=== PATIENT | male | born 1965 | race Caucasian/White ===

== ENCOUNTER 2019-05-01 13:47 | Outpatient (RCR) | payer MEDICARE, MEDICAID, SELFPAY | END 2019-05-02 00:01 | LOC: WOUND 13:47 | PROVIDERS: Family Provider Nurse Practitioner Family; Visit Provider Nurse Practitioner Family | DX: I96 Gangrene, not elsewhere classified (principal); L97.822 Non-pressure chronic ulcer of other part of left lower leg with fat layer exposed; L98.9 Disorder of the skin and subcutaneous tissue, unspecified; L98.492 Non-pressure chronic ulcer of skin of other sites with fat layer exposed | CPT/HCPCS: 11042; 87070; 87077; 87176; 87186 ×4; 87205; G0463 ==

== ENCOUNTER 2019-05-03 07:30 | Emergency (ER) | payer MEDICARE, MEDICAID, SELFPAY ==
[2019-05-03 07:44] VITALS: BP 147/83; RESP 16; TEMP 36.8; O2SAT 94; BMI 40.6
--- NOTE | 2019-05-03 08:05 | W.ED.EXTPRO ---
HPI - Extremity Problem General: Chief complaint: Extremity Problem,Nontraumatic Stated complaint: Shoulder Pain Time Seen by Provider: 05/03/19 07:38 History of Present Illness: HPI Narrative: Patient is a 53-year-old male that comes in to the ED for right shoulder pain. He says he has right shoulder pain chronically but I got worse when he fell and landed on his right shoulder about 2 weeks ago. Patient currently takes hydrocodone for pain in his right leg. He took a hydrocodone to help with shoulder pain this morning. He denies any pain radiating down the arm and no numbness or tingling to extremities. MD Complaint: extremity pain Associated symptoms: Deny chest pain, fever(s) or short of breath Review of Systems Const: Denies: fever or chills ENMT: Denies: throat pain, nasal discharge or nasal congestion Card: Denies: chest pain, palpitations, edema, shortness of breath on exertion or shortness of breath when lying down Resp: Reports: non-productive cough; Denies: shortness of breath GI: Denies: abdominal pain, nausea, vomiting, diarrhea, constipation or blood in stool : Denies: difficulty urinating, painful urination or blood in urine Neuro: Reports: headache (mild); Denies: numbness in extremities or weakness in extremities PFSH ED PFSH: Statuses (acute, chronic, etc) shown below reflect problem list status as previously entered and may not be historically accurate Social History Smoking and tobacco status: never smoked Physical Exam Const: COMMON NORMALS: no apparent distress and oriented x3 ORIENTATION/CONSCIOUSNESS: Yes awake, Yes oriented to person, Yes oriented to place and Yes oriented to time HENMT: COMMON NORMALS: moist oral mucous membranes MOUTH: oral and palatal mucosa normal and lip normal THROAT: posterior oropharynx normal Eye: COMMON NORMALS: PERRL GENERAL EYE: normal appearance of both eyes PUPIL: Yes PERRL Neck/C-Spine: CERVICAL SPINE: No cervical spine tenderness Resp: COMMON NORMALS: normal respiratory effort, no retractions, no use of accessory muscles and clear to auscultation bilaterally EFFORT & INSPECTION: Yes able to speak in complete sentences AUSCULTATION: clear to auscultation bilaterally Cardio: COMMON NORMALS: regular rate, regular rhythm, S1 normal heart sound, S2 normal heart sound, no gallops, no clicks, no murmurs and peripheral pulses 2+ throughout (Radial pulses ) RATE: regular rate RHYTHM: regular rhythm HEART SOUNDS: S1 normal and S2 normal PERIPHERAL PULSES: pulses 2+ throughout (Radial pulses ) GI: COMMON NORMALS: normal to inspection, nondistended, normoactive bowel sounds and soft to palpation INSPECTION: Yes central obesity PALPATION: Yes soft : COMMON NORMALS: Yes no CVA tenderness BLADDER/KIDNEY EXAM: Yes no CVA tenderness Back/Pelvis: COMMON NORMALS: no CVA tenderness Extremity: GENERAL: Yes amputation (Left Leg) Neuro: COMMON NORMALS: oriented x3 SENSORIUM/ORIENTATION: Yes oriented to person, Yes oriented to place and Yes oriented to time Course Vital Signs: Vital signs: Vital Signs Temperature 98.3 F 05/03/19 07:44 Pulse Rate 82 05/03/19 09:49 Respiratory Rate 16 05/03/19 09:49 Blood Pressure 148/87 05/03/19 09:49 Pulse Oximetry 97 05/03/19 09:49 MDM - Extremity (Nontraumatic) Imaging Data^: Xray Ortho: Attestation: I personally reviewed and interpreted this imaging study as follows: My impression: No fractures seen on right shoulder xray. Radiologist's impression: Normal right shoulder xray. Discharge Plan Discharge Patient Disposition: Home, Self-Care Clinical Impression: Sprain and strain of other specified sites of shoulder and upper arm Condition: Stable Referrals: Amanda Odell NP [Primary Care Provider] - Discharge Diet: Regular Discharge Activity: Increase activity as tolerated Patient Instructions: Osteoarthritis (ED) Activity Restrictions/Additional Instructions: Follow-up with your primary care doctor in 7 days for reevaluation. Increase activity with her right shoulder as tolerated. Ice and/or apply heat for shoulder pain relief. Take Aleve or ibuprofen as needed for right shoulder pain. Discharge Date/Time: 05/03/19 09:50 Coding Level of Care Code ED Technical System Analyst for Jeronimo Fwd Exam Problem Focused
--- NOTE | 2019-05-03 08:15 | XR_ITS ---
WS: [id number] SHOULDER RIGHT TECHNIQUE: 3 views of the right shoulder CLINICAL INFORMATION: Fall and Right shoulder pain COMPARISON: None. FINDINGS: Normal acromioclavicular joint. Normal glenohumeral joint. Acromion is normal in appearance. Normal g lenoid. Chronic right rib fractures XR/XR shoulder RT min 2V* [id number] IMPRESSION: Normal right shoulder.
[2019-05-03 08:17] VITALS: PULSE 80
[2019-05-03 09:49] VITALS: BP 148/87; PULSE 82; RESP 16; O2SAT 97
== END 2019-05-03 09:50 | disposition home or self-care (01) ==
PROVIDERS: Emergency Provider Family Medicine; Family Provider Nurse Practitioner Family; PCP Nurse Practitioner Family
DX: S43.401A Unspecified sprain of right shoulder joint, initial encounter (principal); S46.911A Strain of unspecified muscle, fascia and tendon at shoulder and upper arm level, right arm, initial encounter; W19.XXXA Unspecified fall, initial encounter; Z79.891 Long term (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 of opiate analgesic
CPT/HCPCS: 73030; 99281

== ENCOUNTER → 2019-05-17 09:24 | Outpatient (BNVA) | payer MEDICARE, MEDICAID, SELFPAY | PROVIDERS: Family Provider Nurse Practitioner Family; PCP Nurse Practitioner Family; Visit Provider Anesthesiology | DX: M54.9 Dorsalgia, unspecified (principal); M25.561 Pain in right knee; R22.1 Localized swelling, mass and lump, neck; R79.89 Other specified abnormal findings of blood chemistry; M25.519 Pain in unspecified shoulder; F17.210 Nicotine dependence, cigarettes, uncomplicated; Z89.612 Acquired absence of left leg above knee; Z79.891 Long term (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 of opiate analgesic | CPT/HCPCS: 99214 ==

== ENCOUNTER 2019-05-22 07:47 | Outpatient (CLI) | payer MEDICARE, MEDICAID, SELFPAY ==
--- NOTE | 2019-05-22 07:59 | US_ITS ---
WS: [id number] INDICATION: Right neck and right arm swollen TECHNIQUE: Ultrasound soft tissue FINDINGS: Ultrasound soft tissue area of concern. No evidence of cystic or solid lesion. No subcutane ous mass or fluid in the area of concern. No pathologic abnormalities. US/US soft tissue head neck 12552 IMPRESSION: Normal exam
== END 2019-05-22 07:48 | disposition home or self-care (01) ==
LOC: RAD 07:52
PROVIDERS: Family Provider Nurse Practitioner Family; PCP Nurse Practitioner Family; Visit Provider Nurse Practitioner Family
DX: R22.1 Localized swelling, mass and lump, neck (principal)
CPT/HCPCS: 76536

== ENCOUNTER 2019-05-22 08:47 | Outpatient (RCR) | payer MEDICARE, MEDICAID, SELFPAY | END 2019-06-02 23:59 | disposition home or self-care (01) | LOC: WOUND 08:47 | PROVIDERS: Family Provider Nurse Practitioner Family; PCP Nurse Practitioner Family; Visit Provider Nurse Practitioner Family | DX: I96 Gangrene, not elsewhere classified (principal); L89.892 Pressure ulcer of other site, stage 2 | CPT/HCPCS: 99212; 99213; G0463 ==

== ENCOUNTER → 2019-05-29 14:57 | Outpatient (BNVA) | payer MEDICARE, MEDICAID, SELFPAY | PROVIDERS: Family Provider Nurse Practitioner Family; PCP Nurse Practitioner Family; Visit Provider Nurse Practitioner Family | DX: E11.9 Type 2 diabetes mellitus without complications (principal); R79.89 Other specified abnormal findings of blood chemistry; Z91.81 History of falling; M25.519 Pain in unspecified shoulder | CPT/HCPCS: 83036 ==

== ENCOUNTER 2019-06-29 09:30 | Outpatient (RCR) | payer MEDICARE, MEDICAID, SELFPAY | END 2019-07-01 23:59 | disposition home or self-care (01) | LOC: RADSHAW 09:30 | PROVIDERS: Family Provider Nurse Practitioner Family; PCP Nurse Practitioner Family; Visit Provider Nurse Practitioner Family | DX: E11.622 Type 2 diabetes mellitus with other skin ulcer (principal); L97.822 Non-pressure chronic ulcer of other part of left lower leg with fat layer exposed; E11.40 Type 2 diabetes mellitus with diabetic neuropathy, unspecified; N40.0 Benign prostatic hyperplasia without lower urinary tract symptoms; I10 Essential (primary) hypertension; E66.01 Morbid (severe) obesity due to excess calories; E78.5 Hyperlipidemia, unspecified; G47.33 Obstructive sleep apnea (adult) (pediatric); F17.220 Nicotine dependence, chewing tobacco, uncomplicated; M19.90 Unspecified osteoarthritis, unspecified site; Z51.89 Encounter for other specified aftercare; Z99.3 Dependence on wheelchair; Z89.612 Acquired absence of left leg above knee; Z88.1 Allergy status to other antibiotic agents; Z88.0 Allergy status to penicillin | CPT/HCPCS: 11042; G0463 ==

== ENCOUNTER 2019-07-10 08:14 | Outpatient (RCR) | payer MEDICARE, MEDICAID, SELFPAY | END 2019-08-01 23:59 | disposition home or self-care (01) | LOC: RADSHAW 08:14 | PROVIDERS: Family Provider Nurse Practitioner Family; PCP Nurse Practitioner Family; Visit Provider Nurse Practitioner Family | DX: E11.621 Type 2 diabetes mellitus with foot ulcer (principal); L97.822 Non-pressure chronic ulcer of other part of left lower leg with fat layer exposed; Z89.612 Acquired absence of left leg above knee | CPT/HCPCS: 99212; 99213; 99214; G0463 ==

== ENCOUNTER 2019-07-11 11:27 | Outpatient (CLI) | payer OTHER, MEDICAID, SELFPAY | END 2019-07-11 11:28 | disposition home or self-care (01) | LOC: SOT 11:27 | PROVIDERS: Family Provider Nurse Practitioner Family; PCP Nurse Practitioner Family; Referring Provider Nurse Practitioner Family; Visit Provider Nurse Practitioner Family | DX: S88.119D Complete traumatic amputation at level between knee and ankle, unspecified lower leg, subsequent encounter (principal); X58.XXXD Exposure to other specified factors, subsequent encounter | CPT/HCPCS: 97167; 97530; 99212; 99213 ==

== ENCOUNTER → 2019-07-14 10:22 | Outpatient (BNVA) | payer MEDICARE, MEDICAID, SELFPAY | PROVIDERS: Family Provider Nurse Practitioner Family; PCP Nurse Practitioner Family; Visit Provider Anesthesiology | DX: G89.29 Other chronic pain (principal); M54.9 Dorsalgia, unspecified; M25.511 Pain in right shoulder; M25.561 Pain in right knee; S78.119A Complete traumatic amputation at level between unspecified hip and knee, initial encounter; X58.XXXA Exposure to other specified factors, initial encounter; F17.220 Nicotine dependence, chewing tobacco, uncomplicated; Z89.612 Acquired absence of left leg above knee; Z79.891 Long term (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 of opiate analgesic | CPT/HCPCS: 99214 ==

== ENCOUNTER → 2019-08-30 09:00 | Outpatient (BNVA) | payer MEDICARE, MEDICAID, SELFPAY | PROVIDERS: Family Provider Nurse Practitioner Family; PCP Nurse Practitioner Family; Visit Provider Nurse Practitioner Family | DX: R79.89 Other specified abnormal findings of blood chemistry (principal); R25.2 Cramp and spasm; Z76.0 Encounter for issue of repeat prescription; M25.511 Pain in right shoulder; G89.29 Other chronic pain | CPT/HCPCS: 80053 ==

== ENCOUNTER 2019-10-12 20:00 | Outpatient (CLI) | payer MEDICARE, MEDICAID, SELFPAY | END 2019-10-12 20:01 | disposition home or self-care (01) | LOC: SLEEP 10-13 09:35 | PROVIDERS: Family Provider Nurse Practitioner Family; PCP Nurse Practitioner Family; Visit Provider Nurse Practitioner | DX: G47.33 Obstructive sleep apnea (adult) (pediatric) (principal) | CPT/HCPCS: 95811 ==

== ENCOUNTER 2019-11-01 13:20 | Outpatient (CLI) | payer MEDICARE, MEDICAID, SELFPAY ==
--- NOTE | 2019-11-01 13:35 | USCV_ITS ---
Marciano Alonso Age: 54 Gender: M : 1965 Exam Date: 11/01/2019 13:45 Ordering Phys: Bartolome Acharya Technologist: Maci Kamara Exam Location: [facility] – [place]_ Indication: edema HISTORY: Lower extremity edema. PROCEDURES: Venous duplex imaging was performed in only the right lower extremity. The following venous structures were evaluated: common femoral vein, profunda vein, proximal portion of the greater saphenous vein, superficial femoral vein, and the popliteal vein. In addition, the posterior tibial and peroneal trunk were evaluated. Serial compression, augmentation maneuvers, and spectral Doppler flow evaluation were performed. FINDINGS: Normal 2-D Doppler and augmentation and compressibility throughout the lower extremity venous structures. Additional imaging through the proximal calf veins also reveals no thrombus. Limited evaluation of the greater saphenous vein is patent with no thrombus.. CONCLUSIONS No evidence of right lower extremity DVT. Uvaldo Mejias MD (Electronically Signed) Final Date: 01 November 2019 14:52 S
== END 2019-11-01 13:21 | disposition home or self-care (01) ==
PROVIDERS: Family Provider Nurse Practitioner Family; PCP Nurse Practitioner Family; Visit Provider Nurse Practitioner
DX: M79.661 Pain in right lower leg (principal); R60.9 Edema, unspecified; I10 Essential (primary) hypertension
CPT/HCPCS: 93971

== ENCOUNTER → 2019-11-14 10:50 | Outpatient (BNVA) | payer MEDICARE, MEDICAID, SELFPAY | PROVIDERS: Family Provider Nurse Practitioner Family; PCP Nurse Practitioner; Visit Provider Anesthesiology | DX: G89.29 Other chronic pain (principal); M54.5 Low back pain; M25.511 Pain in right shoulder; M25.561 Pain in right knee; Z89.612 Acquired absence of left leg above knee; F17.220 Nicotine dependence, chewing tobacco, uncomplicated; Z79.891 Long term (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 of opiate analgesic | CPT/HCPCS: 99214 ==

== ENCOUNTER → 2020-01-16 12:47 | Outpatient (BNVA) | payer MEDICARE, MEDICAID, SELFPAY | PROVIDERS: Family Provider Nurse Practitioner Family; PCP Nurse Practitioner; Visit Provider Nurse Practitioner | DX: G89.29 Other chronic pain (principal); M54.42 Lumbago with sciatica, left side; M54.41 Lumbago with sciatica, right side; M54.9 Dorsalgia, unspecified; M25.511 Pain in right shoulder; M25.561 Pain in right knee; S78.119A Complete traumatic amputation at level between unspecified hip and knee, initial encounter; X58.XXXA Exposure to other specified factors, initial encounter; F17.220 Nicotine dependence, chewing tobacco, uncomplicated; Z89.612 Acquired absence of left leg above knee; Z79.891 Long term (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 of opiate analgesic | CPT/HCPCS: 99213; 99214 ==

== ENCOUNTER → 2020-01-24 09:11 | Outpatient (BNVA) | payer MEDICARE, MEDICAID, SELFPAY | PROVIDERS: Family Provider Nurse Practitioner Family; PCP Nurse Practitioner; Visit Provider Internal Medicine | DX: Z20.828 Contact with and (suspected) exposure to other viral communicable diseases (principal) | CPT/HCPCS: 87635 ==

== ENCOUNTER 2020-01-26 09:53 | Day surgery (SDC) | payer MEDICARE, MEDICAID, SELFPAY ==
[2020-01-24 12:59] VITALS: BMI 40.6
--- NOTE | 2020-01-26 09:04 | W.PM.OPSUD ---
Surgery/Procedure H&P Update DATE OF PROCEDURE: January 26, 2020 DATE H&P PERFORMED: 01/15/20 PLANNED PROCEDURE: Operation Date: 01/26/20 10:30 Proposed Procedures p EGD/colon 37440 [id number] R10.13 Z12.11(Not Applicable) - Willis Pardo MD s Colonoscopy(Not Applicable) - Willis Pardo MD
[2020-01-26 10:10] VITALS: BP 142/76; PULSE 76; RESP 18; TEMP 36.9; O2SAT 93
[2020-01-26] MEDS: sodium chloride 0.9% 1,000 ML 30 ML IV (10:26)
--- NOTE | 2020-01-26 10:27 | ANES.PREANE2 ---
Pre-Anesthetic Assessment Pre-Anesthetic Assessment: Height/Weight: Height 1.83 m Weight 136.078 kg Temp Pulse Resp BP Pulse Ox 98.4 F 76 18 142/76 93 01/26/20 10:10 01/26/20 10:10 01/26/20 10:10 01/26/20 10:10 01/26/20 10:10 Preop Diagnosis: Epigastric pain Proposed Procedure: Operation Date: 01/26/20 10:30 Proposed Procedures p EGD/colon 35455 02472 R10.13 Z12.11(Not Applicable) - Willis Pardo MD s Colonoscopy(Not Applicable) - Willis Pardo MD Familial anesthetic complications: None Was Beta Tonia taken within 24 hours: Yes Last intake: Intake Last Liquid Date 01/25/20 Last Liquid Time 20:00 Last Solid Date 01/24/20 Last Solid Time 20:00 Social: Social History: Tobacco Comment: chews tobacco Exam: Pre-Anes Outpt Exam: alert, oriented x 3, clear to auscultation bilaterally and regular rate & rhythm Airway: Cervical ROM: WNL MP: 4 Dentition: Other (no teeth) Additional comments: large neck circumference Pulmonary: Pulmonary: Sleep apnea (characterized as extremely severe - wears CPAP) CV/HEM: CV/HEM: HTN GI: GI: GERD Metabolic: Metabolic: DM, Hyperlipidemia and Morbid obesity Musc/skel: Comments: AKA Anesthetic Plan: ASA status: 3 Anesthesia: MAC Risk of > 500 ml blood loss (7ml/kg in children): No Meds/Allergies Current Medications: Current Medications Generic Name Dose Route Start Last Admin Trade Name Freq PRN Reason Stop Dose Admin Sodium Chloride 1,000 mls @ 30 ml s/hr 01/26/20 10:15 01/26/20 10:26 Sodium Chloride 0.9% IV 30 mls/hr .Q24H DOMITILA Administration PFSH Anesthesia PFSH: Medical History (Updated 01/16/20 @ 13:03 by VIVIANE Mcginnis) Amputation above knee Left BPH (benign prostatic hyperplasia) Chronic right shoulder pain Diabetes mellitus Diabetes type 2, controlled Dysuria-frequency syndrome Encounter for long-term use of opiate analgesic Essential hypertension History of left above knee amputation Primary osteoarthritis of both knees r knee Right knee pain Seizure Shoulder pain BILATERAL Sleep apnea Surgical History History of shoulder surgery 2002 x 2 L shoulder Family History Other Heart disease Hypertension Social History (Updated 01/16/20 @ 12:54 by Massiel Calhoun LPN) Smoking and tobacco status: smoker, details unknown smokeless tobacco Smokeless tobacco user: chewing tobacco Smokeless tobacco details: 2 cans a day Second hand smoke exposure: No Alcohol intake: never History of recent travel: No Data Anesthesia Cardiac Studies: No Data to Display
[2020-01-26 10:29] LABS: Glucose Point of Care 175 mg/dL (70-110)
[2020-01-26 11:08] VITALS: BP 95/64; PULSE 81; RESP 16; TEMP 36.2; O2SAT 93
[2020-01-26 11:31] VITALS: BP 131/78; PULSE 77; RESP 18; O2SAT 90
--- NOTE | 2020-01-26 11:50 | ANE.PACU2 ---
Inpatient post-anesthesia follow up: Airway intact: Yes Vital signs: Temperature 97.1 F Pulse Rate 77 Respiratory Rate 18 Blood Pressure 131/78 Pulse Oximetry 90 Oxygen Delivery Me thod Room Air Oxygen Flow Rate Fraction of Inspir ed Oxygen Hydration adequate: Yes Nausea and vomiting: No Mental status: Baseline
[2020-01-27 14:49] LABS: H. Pylori / CLO Test Negative
== END 2020-01-26 11:55 | disposition home or self-care (01) ==
PROVIDERS: PCP Nurse Practitioner; Visit Provider Internal Medicine
PROC: 0DJ08ZZ Inspection of Upper Intestinal Tract, Via Natural or Artificial Opening Endoscopic (ICD-10-PCS; CPT 43235; principal; 2020-01-26 10:30)
PROC: 0DJD8ZZ Inspection of Lower Intestinal Tract, Via Natural or Artificial Opening Endoscopic (ICD-10-PCS; CPT 45378; 2020-01-26 10:30)
DX: Z12.11 Encounter for screening for malignant neoplasm of colon (principal); K31.7 Polyp of stomach and duodenum; K29.70 Gastritis, unspecified, without bleeding; R10.13 Epigastric pain; N40.0 Benign prostatic hyperplasia without lower urinary tract symptoms; E11.9 Type 2 diabetes mellitus without complications; Z79.4 Long term (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 of insulin; I10 Essential (primary) hypertension; M17.0 Bilateral primary osteoarthritis of knee; F17.220 Nicotine dependence, chewing tobacco, uncomplicated
CPT/HCPCS: 12345; 36416; 43239; 45330; 82962; 87077; 88305; G0121; J2704; J7030

== ENCOUNTER → 2020-02-13 13:30 | Outpatient (BNVA) | payer MEDICARE, MEDICAID, SELFPAY | PROVIDERS: Family Provider Nurse Practitioner Family; PCP Nurse Practitioner; Visit Provider Anesthesiology | DX: M54.9 Dorsalgia, unspecified (principal); M25.561 Pain in right knee; S78.119A Complete traumatic amputation at level between unspecified hip and knee, initial encounter; X58.XXXA Exposure to other specified factors, initial encounter; F17.210 Nicotine dependence, cigarettes, uncomplicated; Z89.612 Acquired absence of left leg above knee; Z79.891 Long term (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 of opiate analgesic | CPT/HCPCS: 99214 ==

== ENCOUNTER → 2020-04-11 13:36 | Outpatient (BNVA) | payer MEDICARE, MEDICAID, SELFPAY | PROVIDERS: Family Provider Nurse Practitioner Family; PCP Nurse Practitioner; Visit Provider Anesthesiology | DX: G89.29 Other chronic pain (principal); M54.9 Dorsalgia, unspecified; M25.561 Pain in right knee; M25.511 Pain in right shoulder; S78.112A Complete traumatic amputation at level between left hip and knee, initial encounter; X58.XXXA Exposure to other specified factors, initial encounter; F17.210 Nicotine dependence, cigarettes, uncomplicated; Z79.891 Long term (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 of opiate analgesic; Z89.612 Acquired absence of left leg above knee | CPT/HCPCS: 99214 ==

== ENCOUNTER → 2020-05-02 09:13 | Outpatient (BNVA) | payer MEDICARE, MEDICAID, SELFPAY | PROVIDERS: PCP Nurse Practitioner; Visit Provider Dermatology | DX: R06.02 Shortness of breath (principal); R07.9 Chest pain, unspecified | CPT/HCPCS: 80048; 85025; 85610; 87635 ==

== ENCOUNTER → 2020-06-06 08:31 | Outpatient (BNVA) | payer MEDICARE, MEDICAID, SELFPAY | PROVIDERS: PCP Nurse Practitioner; Visit Provider Internal Medicine | DX: R06.02 Shortness of breath (principal); R07.9 Chest pain, unspecified | CPT/HCPCS: 80048; 85025; 85610; 87635 ==

== ENCOUNTER 2020-06-10 08:28 | Observation (INO) | payer MEDICARE, MEDICAID, SELFPAY ==
[2020-06-07 08:48] VITALS: BMI 40.6
[2020-06-10] VITALS (16 sets, daily range): BP systolic 136–175; BP diastolic 78–97; PULSE 93–96; RESP 14–29; TEMP 36.8–37.4; O2SAT 90–93; BMI 40.6
--- NOTE | 2020-06-10 06:48 | ANES.PREANE2 ---
Pre-Anesthetic Assessment Pre-Anesthetic Assessment: Height/Weight: Height 1.83 m Weight 136.078 kg Preop Diagnosis: Angina Proposed Procedure: Operation Date: 06/10/20 07:00 Proposed Procedures p Cardiac Catheterization 82492(Left) - González Sanabria M.D Was Beta Tonia taken within 24 hours: Yes Last intake: Fluids- 0400 water Solid Food- 0830 Chewing tobacco 0600 patient will be delayed 4 hours for NPO status. Patient states the chewing tobacco was not swallowed. Social: Social History: Tobacco and No alcohol Exam: Pre-Anes Outpt Exam: alert, oriented x 3 and clear to auscultation bilaterally Airway: Submandibular: WNL Cervical ROM: Other (Limited ROM) MP: 4 Dentition: Other Additional comments: no teeth History/ROS: No significant history except as noted Pulmonary: Pulmonary: Sleep apnea and SOB Comments: Bipap at night CV/HEM: CV/HEM: Angina (Unstable), HTN, NE (EKG changes.) and PVD : : None reported Hepatic: Hepatic: None reported GI: GI: GERD Metabolic: Metabolic: DM Musc/skel: Musc/skel: Lower Back Pain and OA/DJD Comments: primarily uses wheelchair Neuropsych: Neuropsych: Seizure (1993 went away, no longer taking any medication ) Anesthetic Plan: ASA status: 3 Anesthesia: Anesthesia Evaluation and MAC Risk of > 500 ml blood loss (7ml/kg in children): No PFSH Anesthesia PFSH: Medical History Amputation above knee Left BPH (benign prostatic hyperplasia) Chronic right shoulder pain Diabetes mellitus Diabetes type 2, controlled Dysuria-frequency syndrome Encounter for long-term use of opiate analgesic Essential hypertension History of left above knee amputation Primary osteoarthritis of both knees r knee Right knee pain Seizure Shoulder pain BILATERAL Sleep apnea Surgical History History of shoulder surgery 2002 x 2 L shoulder Family History Other Heart disease Hypertension Social History Smoking and tobacco status: smoker, details unknown smokeless tobacco Smokeless tobacco user: chewing tobacco Smokeless tobacco details: 2 cans a day Second hand smoke exposure: No Alcohol intake: never History of recent travel: No Data Anesthesia Cardiac Studies: No Data to Display
--- NOTE | 2020-06-10 06:59 | PC.NURSE ---
Procedure postponed ASSISTANT WINEMAKER in room to talk with pt prior to procedure. Pt stated he chewed tobacco this am up until checking in at 0600. ASSISTANT WINEMAKER states pt has to be 4 hours without chewing tobacco for anesthesia. Dr Sanabria notified and states to postpone pt 4 hours this am. Pt and first floor updated.
--- NOTE | 2020-06-10 07:37 | PC.NURSE ---
patient in holding room 103 to await photo lab manager procedure patient alert oriented and in stable condition V/s stable
--- NOTE | 2020-06-10 08:05 | PC.NURSE ---
patient voided at this time incontinent of urine complete bed change performed at this time
[2020-06-10 08:26] LABS: Glucose Point of Care 221 mg/dL (70-110)
[2020-06-10 11:09] LABS: Glucose Point of Care 205 mg/dL (70-110)
--- NOTE | 2020-06-10 13:06 | P.HP_ITS ---
Providers/Chief Complaint Admitting Physician: González Sanabria M.D Primary Care Provider: LUCIEN Hall Chief Complaint: Chest pain/ LHC+/-PCI History of Present Illness Marciano Alonso is a 54 year old male with past medical history of diabetes, hypertension, obstructive sleep apnea, tobacco abuse, [id number] amputation on the left side who was referred to cardiology for assessment of chest pain. As he was having worsening chest pain symptoms, plan is to have left heart cath with possible percutaneous coronary intervention. His chest symptoms are typical. This will be with anesthesia support as patient has chronic back problems and cannot lay down flat for a long time. Review of Systems Narrative: CONSTITUTIONAL: No fever chills weight loss or gain or night sweats. [] HEENT: Normocephalic, atraumatic.[] RESPIRATORY: No cough, sputum, hemoptysis or wheezing.[] CARDIOVASCULAR: No shortness of breath, chest pain, PND, orthopnea, lower extremity edema, presyncope or syncope. [] GI: no nausea vomiting diarrhea. [] FOREMAN OR SUPERVISOR AND OPERATOR: No numbness, tingling, weakness or loss of function in any part of the body. [] MUSCULOSKELETAL: No knee or joint pain or rashes. [] Medications/Allergies Home Medications Medication Instructions Recorded Confirmed Last Taken Type allopurinol 300 mg tablet 300 mg PO DAILY tab 05/08/19 06/07/20 06/10/20 04:00 History carboxymethylcellulose sodium 0.5 1 drop OPHTHALMIC (EYE) DAILY PRN 05/08/19 06/07/20 06/10/20 04:00 History % eye drops ml celecoxib 200 mg capsule 200 mg PO DAILY 05/08/19 06/07/20 06/10/20 04:00 History cetirizine 10 mg capsule 10 mg PO DAILY cap 05/08/19 06/07/20 06/10/20 04:00 History cholecalciferol (vitamin D3) 25 1,000 unit PO DAILY cap 05/08/19 06/07/20 06/10/20 04:00 History mcg (1,000 unit) capsule cyclosporine 0.05 % eye drops in a 1 drop OPHTHALMIC (EYE) DAILY each 05/08/19 06/07/20 06/10/20 04:00 History dropperette dapagliflozin 10 mg tablet 10 mg PO QAM 05/08/19 06/07/20 06/09/20 07:00 History erythromycin 5 mg/gram (0.5 %) eye 1 applic OPHTHALMIC (EYE) TID 05/08/19 06/07/20 06/10/20 04:00 History ointment (3.5 gram tube) ferrous sulfate 325 mg (65 mg 325 mg PO .COMPLEX 05/08/19 06/07/20 06/10/20 04:00 History iron) tablet glucosamine 750 ah-tigbtgpbzvi-tro 1 tab PO BID 05/08/19 06/07/20 06/10/20 04:00 History no1 644 mg-C 30 mg-lisa 1 mg tablet insulin regular human 100 unit/mL See Rx Instructions SUBCUT TID 05/08/19 06/07/20 06/09/20 14:00 History injection solution labetalol 300 mg tablet 300 mg PO .COMPLEX 05/08/19 06/07/20 06/10/20 04:00 History montelukast 10 mg tablet 10 mg PO DAILY tab 05/08/19 06/07/20 06/10/20 04:00 History tamsulosin 0.4 mg capsule 0.4 mg PO ONCE 05/08/19 06/07/20 06/10/20 04:00 History testosterone cypionate 200 mg/mL 200 mg IM .COMPLEX 05/08/19 06/07/20 06/10/20 04:00 History intramuscular kit tobramycin 0.3 %-dexamethasone 0.1 1 drop OPHTHALMIC (EYE) .COMPLEX 05/08/19 06/07/20 06/10/20 04:00 History % eye drops,suspension vitamin A palmitate 10,000 unit 10,000 unit PO DAILY cap 05/08/19 06/07/20 06/10/20 04:00 History capsule zinc 50 mg tablet 50 mg PO DAILY tab 05/08/19 06/07/20 06/10/20 04:00 History insulin degludec 200 unit/mL (3 See Rx Instructions SUBCUT DAILY 05/17/19 06/07/20 06/09/20 14:00 History mL) subcutaneous pen ml nystatin 100,000 unit/gram topical 1 applic TOPICAL BID #60 gm 06/14/19 06/07/20 06/10/20 04:00 Rx powder cyanocobalamin (vitamin B-12) 1,000 mcg SUBCUT .COMPLEX #1 ml 06/29/19 06/07/20 06/07/20 Rx 1,000 mcg/mL injection solution phenylephrine HCl 10 mg tablet 10 mg PO Q6H 07/04/19 06/07/20 06/10/20 04:00 History fluticasone propionate 50 1 spray INTRANASAL BID #15.8 ml 07/18/19 06/07/20 06/10/20 04:00 Rx mcg/actuation nasal spray,suspension amlodipine 10 mg tablet See Rx Instructions .ROUTE 09/05/19 06/07/20 06/10/20 04:00 Rx .COMPLEX #30 unknown measurement unit code: not specified amitriptyline 75 mg tablet 75 mg PO BID #180 tab 09/11/19 06/07/20 06/10/20 04:00 Rx metformin 1,000 mg tablet,extended 1,000 mg PO BID #60 tab 09/11/19 06/07/20 06/09/20 07:00 Rx release 24hr olmesartan 20 mg tablet 20 mg PO DAILY #30 tab 10/12/19 06/07/20 06/10/20 04:00 Rx atorvastatin 20 mg tablet 20 mg PO ONCE #30 tab 10/30/19 06/07/20 06/09/20 20:00 Rx Myrbetriq 50 mg PO DAILY 01/24/20 06/07/20 06/10/20 04:00 History Vitamin 1 tab PO DAILY 01/24/20 06/07/20 06/10/20 04:00 History esomeprazole magnesium 40 mg PO BID 01/24/20 06/07/20 06/10/20 04:00 History diclofenac sodium 1 % topical gel 4 gm TOPICAL QID PRN 30 Days #300 02/13/20 06/07/20 06/10/20 04:00 Rx gm hydrocodone 5 mg-acetaminophen 325 1 tab PO TID PRN 30 Days #90 tab 04/11/20 06/07/20 Unknown Rx mg tablet hydrocodone 5 mg-acetaminophen 325 1 tab PO TID PRN 30 Days #90 tab 04/11/20 06/07/20 Unknown Rx mg tablet Allergies Allergy/AdvReac Type Severity Reaction Status Date / Time Penicillins Allergy ALGY-Hives Verified 04/11/20 14:22 Sulfa (Sulfonamide Allergy ALGY-Hives Verified 04/11/20 14:22 Antibiotics) PFSH Acute PFSH: Medical History Amputation above knee Left BPH (benign prostatic hyperplasia) Chronic right shoulder pain Diabetes mellitus Diabetes type 2, controlled Dysuria-frequency syndrome Encounter for long-term use of opiate analgesic Essential hypertension History of left above knee amputation Primary osteoarthritis of both knees r knee Right knee pain Seizure Shoulder pain BILATERAL Sleep apnea Surgical History History of shoulder surgery 2001 x 2 L shoulder Family History Other Heart disease Hypertension Social History Smoking and tobacco status: smoker, details unknown smokeless tobacco Smokeless tobacco user: chewing tobacco Smokeless tobacco details: 2 cans a day Second hand smoke exposure: No Alcohol intake: never History of recent travel: No Vitals/I&O/Wt Last Vital Signs Temp 99.3 F 06/10/20 06:44 Pulse 93 06/10/20 06:44 Resp 18 06/10/20 06:44 BP 136/78 06/10/20 06:44 Pulse Ox 93 06/10/20 06:44 06/09/20 06/10/20 06/10/20 22:59 06:59 14:59 Output Total 1400 / 1400 Balance -1400 / -1400 Weight last 48 hrs Weight 333 lb 3.2 oz Weight 300 lb Physical Exam Narrative: EXAM NARRATIVE: GENERAL: Patient is alert, awake and oriented x3. [] NECK: No jugular vein distension. [] HEENT: No cyanosis. No icterus. No pallor. [] HEART: Regular S1 and S2. No murmur, rub or gallop. [] LUNGS: Clear to auscultate bilaterally. [] ABDOMEN: Soft, nontender and nondistended. Positive bowel sounds. No guarding, rebound or tenderness. [] CENTRAL NERVOUS SYSTEM: Grossly nonfocal. [] EXTREMITIES: Lower extremities with 1+ edema. Has left leg BKA. A&P Assessment and plan (1) Chest pain: Status: Acute (2) Essential hypertension: Status: Acute (3) Diabetes mellitus: Status: Acute Patient has been having typical worsening chest pain. Plan for left heart cath with possible percutaneous coronary intervention. Procedure to be performed with anesthesia availability as patient has chronic back pain and is on pain medications with inability to lay down flat for a long duration. Risks and benefits of the procedure have been described to the patient. Risks including bleeding, infection, abnormal heart rhythm, kidney function worsening, heart attack, stroke or have been described. Patient understands the risks and wants to proceed with the procedure. We will load with aspirin 325 mg. Attestations Medical Necessity Statement*: Care not expected to cross 2 midnights. Patient here for diagnostic angiogram with possible percutaneous coronary intervention Coding Level of Care Code Acute Cage/Vault Supervisor for Jeronimo Enamorado Diagnoses Chest pain R07.9 Essential hypertension I10 Diabetes mellitus E11.9
[2020-06-10 17:09] LABS: Glucose Point of Care 129 mg/dL (70-110)
--- NOTE | 2020-06-10 18:00 | PC.NURSE ---
Received call from Ritu in cardiac cathode maker. Patient Gavin's heart cath procedure with be rescheduled to tomorrow at 1100. Patient may eat dinner and be NPO at midnight.
[2020-06-10 18:20] LABS: Glucose Point of Care 126 mg/dL (70-110)
--- NOTE | 2020-06-10 18:49 | PC.NURSE ---
instructions from Dr oconnor to feed patient cath procedure post pone till 11 am
[2020-06-10 20:59] LABS: Glucose Point of Care 153 mg/dL (70-110)
[2020-06-10] MEDS: insulin glargine 100 units/1 mL 10 UNIT SUBCUT (21:45)
[2020-06-10] MEDS: HYDROcodone-acetaminophen 5-325 mg Tablet 1 TAB PO (23:40)
[2020-06-11] VITALS (24 sets, daily range): BP systolic 124–167; BP diastolic 68–96; PULSE 85–95; RESP 12–25; TEMP 36.2–36.7; O2SAT 91–98
[2020-06-11] MEDS: sodium chloride 0.9% 1,000 ML 50 ML IV (05:46)
--- NOTE | 2020-06-11 07:00 | XACV_ITS ---
Exam Room: [facility] Ht: 183 cm Wt: 151 kg BSA: 2.84 m2 Gender: Male : 1965 Any Known Allergies: Sulfa Exam Priority: Routine Procedure(s): Procedure Description: Diagnostic procedure Procedure Description: Left Heart Catheterization Procedure Description: Left ventriculography Procedure Description: Coronary Angiography Diagnostic Cath Status: Elective Diagnostic Findings * No significant disease noted in the Left Main, LAD, Circumflex, or RCA coronary arteries. * Coronary angiography shows right dominance. Conclusions 1. Likely microvascular dysfunction. 2. No significant disease noted in the Left Main, LAD, Circumflex, or RCA coronary arteries. 3. Normal left ventricular systolic function. Ejection fraction of 50%. Recommendations * Will add Imdur to medication regimen. Diagnostic RX Recommendation: medical therapy and/or counseling Anticoagulation: Heparin Ventriculography Ejection Fraction: 50.0 % Pressures Phase:Rest AO : 96 / 65 ( 80 ) @ 5:43:00 AM 123 / 74 ( 96 ) @ 5:53:00 AM 123 / 72 ( 93 ) @ 5:53:00 AM 120 / 70 ( 91 ) @ 5:53:00 AM LV : 134 / -5 / @ 5:51:00 AM 136 / 8 / @ 5:53:00 AM 136 / 8 / @ 5:53:00 AM Valves Phase:DefaultPhase AV : 6.0 @ 12:00:06 PM AV Mean Gradient: 6.0 @ 12:00:06 PM Clinical Evaluation EBL: 5mL-10mL Procedural Details Procedure Consent Obtained. Pre-Procedure Time Out. Identified patient by full name and date of as verbalized by the patient/guarantor. Does the consent match the physician's order: Yes. Accurate & Complete Informed Consent: Yes. Inpatient/Outpatient History & Physical on Chart: Yes. If H&P is completed, is and addenduem needed: No; If yes, is the addendum complete: N/A. Visualize and Verify Site with Patient/Guarantor: N/A. Relevant Radiology Images available: N/A. Pre-op teaching completed and patient verbalized understanding. The risks, benefits, and alternatives of sedation and/or procedure were discussed by physician. The patient agrees to continue. Procedure started. Chest Pain Symptom Assessment: Typical Angina Symptoms. [facility] Clinical Fraility Score: 5: Mildly Frail. Lens Assorter Indications: Worsening Angina. Cardiovascular Instability: No. Correct patient, site and procedure confirmed by cath team. PERRLA. Strong, equal hand mobile developer bilaterally. Lungs clear x 5 lobes. IV Site on Arrival: 20 gauge in the left anticubital. Physician notified. Pt has Left Above Knee Amputee. IV Fluids: 0.9% NaCl at KVO. 0 mL infused prior to director of cardiac cath lab. Pre Procedural Pulses: right dorsalis pedis was Doppled. Pre Procedural Pulses: right posterior tibial was Doppled. Pre Procedural Pulses: bilateral radial was 2+. Oxygen started at 2liters/min via nasal canula. Physician arrived. right radial was prepped with chloroprep then draped in the usual sterile fashion. Physician scrubbed in. Immediate Pre-Procedure Time Out. Correct Patient: Yes; Correct Procedure: Yes; Correct Site: Yes; Correct Patient Position: Yes; Correct Supplies: Yes; Dried Flammable Prep: Yes; Blood Products Available: N/A;. Lidocaine 1% infiltrated to the right radial. Arterial access obtained. A 5 swazi TIG catheter in over wire. Multiple views taken of left coronary artery. Catheter redirected to the RCA. Catheter removed over the exchange wire. A 5 swazi JR4 catheter in over wire. Multiple views taken of right coronary artery. Catheter removed over the exchange wire. A 5 swazi Angled Pig catheter in over wire. EDP Sample taken: LV 134/-6,21; HR: 84 BPM; SpO2: 92%. LV gram performed in RAMEY @ 10 mL/second for a total of 30 mL. EDP Sample taken: LV 136/8,30; HR: 84 BPM; SpO2: 93%. Pullback taken: LV 136/8,32; AO 123/74(96); Mean: 6mmHg, Peak to Peak: 6mmHg, SEP: 26sec/min; HR: 99 BPM; SpO2: 91%. Catheter removed over the exchange wire. Physician scrubbed out. A TR Band was successful obtaining hemostatsis at the Right Radial artery insertion site. TR band placed. Hemostasis obtained. Post Procedure: Pulses reassessed and unchanged. PERRLA. Strong, equal hand mobile developer bilaterally. No VTE prophylaxis required. Medication's Wasted: Lidocaine 1% = 18 mL. Medication's Wasted: Nitro = 49.8 mg. Medication's Wasted: Heparin = 2000 units. Total IV fluids: 50 mL. Contrast type used: Omnipaque 300 mgI/mL, 500 mL bottle. Post-op diagnosis: non obstructive CAD. Complications: none. Estimated blood loss: 5mL-10mL. Procedure completed. Patient transferred by bed to 1st floor. Vital chart was stopped. Access Site Site: Right Radial artery Sheath Size: 6 Fr Hemostasis Method: TR Band Hemostasis Success: Successful Procedure Medications Start: 11:30 AM Stop: 11:30 AM Medication: Versed Amount: 2 mg Route: I.V. Start: 11:35 AM Stop: 11:35 AM Medication: Fentanyl Amount: 50 mcg Route: I.V. Start: 11:39 AM Stop: 11:39 AM Medication: Fentanyl Amount: 50 mcg Route: I.V. Start: 11:39 AM Stop: 11:39 AM Medication: Nitrogylcerin Amount: 200 mcg Route: I.A. Start: 11:40 AM Stop: 11:40 AM Medication: Versed Amount: 1 mg Route: I.V. Start: 11:42 AM Stop: 11:42 AM Medication: Heparin Amount: 4000 units Route: I.V. Start: 11:53 AM Stop: 11:53 AM Medication: Versed Amount: 1 mg Route: I.V. I, the attending physician, have reviewed and verified all procedure medications. Yes, all medications given per verbal order History/Risk Factors Hypertension: Yes Dyslipidemia: No Peripheral Arterial Disease (PAD): No Myocardial Infarction (DE): No Obesity: Yes Renal Disease: No Prior Interventions PCI: No CABG: No Valve Surgery: No Report Signatures Finalized by González Sanabria MD on 06/11/2020 02:02 PM
[2020-06-11 07:02] LABS: Glucose Point of Care 204 mg/dL (70-110)
[2020-06-11] MEDS: amlodipine 10 mg Tablet PO (08:57)
[2020-06-11] MEDS: atorvastatin 40 mg Tablet 20 MG PO (08:57)
[2020-06-11] MEDS: labetalol 200 mg Tablet 900 MG PO (08:57)
[2020-06-11] MEDS: pantoprazole DR 40 mg Tablet PO (08:58)
[2020-06-11] MEDS: losartan 50 mg Tablet PO (08:58)
--- NOTE | 2020-06-11 09:38 | PC.CHAP ---
Pastoral Care Encounter/Spiritual Assessment Type of Contact [] Declined licensing engineer visit [] Patient/Family/Request visit [] Outpatient visit [] Follow-up visit [] Physician referral [] Code/Alert [x] Routine visit [] Staff referral [] Actively dying [] Patient sleeping [] Family support [] [] Out of room [] Palliative care [] [] Receiving care in room [] Pre-surgical visit [] Trauma [] Long length of stay [] ICU visit [] Other: Relational/Emotional Strength [] Patient feels connected with others/family/visitors/staff [] Distress [] Loneliness/isolation [] Abandonment Spirituality of Patient [] Person of Cindy [] Attends Shinto of their Cindy [] Believes in Prayer [] Reads Bible or Catholic materials [] There are Spiritual issues to be addressed Service Center Coordinator Interventions [x] Prayer [x] Active listening [x] Non-anxious presence [x] Spiritual/emotional support [] Crisis/trauma care [] Spiritual counseling [] Bereavement support [] Provided bereavement packet [] Provided Bible/devotional materials [] Provided toy/stuffed animal, coloring book to patient or family member [] Provided Communion [] Anointing/[place] [] Salvation [x] Completed spiritual assessment [] Other: Impact on Illness or Injury [] Angry [] Fearful [] Anxious [] Often cries [] Exhaustion [] Unable to work [] Unable to attend orthodoxy [] Unable to walk/stand [] Unable to read [] Unable to drive [] Unable to eat/drink [] Unable to sleep [] Unable to be with family [] Patient intubated [] Other: Summary patient feeling better... Time spent with patient 10 min
[2020-06-11 11:29] LABS: Glucose Point of Care 181 mg/dL (70-110)
--- NOTE | 2020-06-11 11:29 | W.PM.OPSUD ---
Surgery/Procedure H&P Update DATE OF PROCEDURE: June 11, 2020 DATE H&P PERFORMED: 06/10/20 H&P UPDATE INFORMATION: I have reviewed H&P completed within last 30 days, I have examined patient prior to procedure and No changes to prior documentation CHANGES TO PREVIOUS DOCUMENTATION: Patient was supposed to undergo coronary angiography with possible percutaneous coronary intervention yesterday. However patient had acute tobacco in the morning secondary to which anesthesia was not comfortable performing the procedure yesterday morning. Plan was to wait for 6 hours and have anesthesia support for the procedure. However because of the emergent case in the evening and anesthesia nonavailability, procedure was postponed. As it was evening and secondary to inclement weather, the procedure had to be held off till today and he could not drive back home. PREOP DIAGNOSIS: Worsening angina PRIMARY INDICATION FOR PROCEDURE: Worsening angina PLANNED PROCEDURE: Operation Date: 06/10/20 07:00 Proposed Procedures p Cardiac Catheterization 16708(Left) - González Sanabria M.D
--- NOTE | 2020-06-11 12:17 | PM.SDS ---
Short Stay Summary Providers Date of Admit/Discharge: 06/20/20 Attending Provider: González Sanabria M.D Primary Care Provider: LUCIEN Hall Chief Complaint: Chest pain/ LHC+/-PCI HPI History of Present Illness 54 year old male with past medical history of diabetes, hypertension, obstructive sleep apnea, tobacco abuse, [id number] amputation on the left side who was referred to cardiology for assessment of chest pain. As he was having worsening chest pain symptoms,he was scheduled to have left heart cath with possible percutaneous coronary intervention. Review of Systems General: Reports: 10 or more systems reviewed and unremarkable except in HPI and below Const: Reports: body aches and fatigue Eyes: Denies: change in vision or blurry vision ENMT: Reports: ear or mastoid pain; Denies: throat pain or tinnitus Card: Reports: chest pain, palpitations, swelling of feet/ankles, dyspnea on exertion and leg pain with exertion; Denies: irregular heart rhythm GI: Reports: nausea and constipation; Denies: abdominal pain, vomiting, heartburn or diarrhea Musc: Reports: back pain, extremity pain, joint pain, joint stiffness, limited range of motion, muscle cramps and muscle weakness Neuro: Reports: numbness in extremities, weakness in extremities and sensory changes; Denies: dizziness Psych: Denies: anxiety, depression, mood swings or panic attacks Home Meds/Allergies Home Medications and Allergies Home Medications Medication Instructions Recorded Confirmed Type allopurinol 300 mg tablet 300 mg PO DAILY tab 05/08/19 06/14/20 History carboxymethylcellulose sodium 0.5 1 drop OPHTHALMIC (EYE) DAILY PRN 05/08/19 06/14/20 History % eye drops ml celecoxib 200 mg capsule 200 mg PO DAILY 05/08/19 06/14/20 History cetirizine 10 mg capsule 10 mg PO DAILY cap 05/08/19 06/14/20 History cholecalciferol (vitamin D3) 25 1,000 unit PO DAILY cap 05/08/19 06/14/20 History mcg (1,000 unit) capsule cyclosporine 0.05 % eye drops in a 1 drop OPHTHALMIC (EYE) DAILY each 05/08/19 06/14/20 History dropperette dapagliflozin 10 mg tablet 10 mg PO QAM 05/08/19 06/14/20 History erythromycin 5 mg/gram (0.5 %) eye 1 applic OPHTHALMIC (EYE) TID 05/08/19 06/14/20 History ointment (3.5 gram tube) ferrous sulfate 325 mg (65 mg 325 mg PO .COMPLEX 05/08/19 06/14/20 History iron) tablet glucosamine 750 aq-gwkkrhukbyq-[id number] 1 tab PO BID 05/08/19 06/14/20 History no1 644 mg-C 30 mg-lisa 1 mg tablet insulin regular human 100 unit/mL See Rx Instructions SUBCUT TID 05/08/19 06/14/20 History injection solution labetalol 300 mg tablet 300 mg PO .COMPLEX 05/08/19 06/14/20 History montelukast 10 mg tablet 10 mg PO DAILY tab 05/08/19 06/14/20 History tamsulosin 0.4 mg capsule 0.4 mg PO ONCE 05/08/19 06/14/20 History testosterone cypionate 200 mg/mL 200 mg IM .COMPLEX 05/08/19 06/14/20 History intramuscular kit tobramycin 0.3 %-dexamethasone 0.1 1 drop OPHTHALMIC (EYE) .COMPLEX 05/08/19 06/14/20 History % eye drops,suspension vitamin A palmitate 10,000 unit 10,000 unit PO DAILY cap 05/08/19 06/14/20 History capsule zinc 50 mg tablet 50 mg PO DAILY tab 05/08/19 06/14/20 History insulin degludec 200 unit/mL (3 See Rx Instructions SUBCUT DAILY 05/17/19 06/14/20 History mL) subcutaneous pen ml phenylephrine HCl 10 mg tablet 10 mg PO Q6H 07/04/19 06/14/20 History Myrbetriq 50 mg PO DAILY 01/24/20 06/14/20 History Vitamin 1 tab PO DAILY 01/24/20 06/14/20 History esomeprazole magnesium 40 mg PO BID 01/24/20 06/14/20 History Allergies Allergy/AdvReac Type Severity Reaction Status Date / Time Penicillins Allergy ALGY-Hives Verified 06/14/20 12:55 Sulfa (Sulfonamide Allergy ALGY-Hives Verified 06/14/20 12:55 Antibiotics) PFSH Acute PFSH: Medical History Amputation above knee Left BPH (benign prostatic hyperplasia) Chronic low back pain Chronic right shoulder pain Diabetes mellitus Diabetes type 2, controlled Dysuria-frequency syndrome Encounter for long-term use of opiate analgesic Essential hypertension History of left above knee amputation Primary osteoarthritis of both knees r knee Right knee pain Seizure Shoulder pain BILATERAL Sleep apnea Surgical History History of shoulder surgery 2002 x 2 L shoulder Family History Other Heart disease Hypertension Social History Smoking and tobacco status: smoker, details unknown smokeless tobacco Smokeless tobacco user: chewing tobacco Smokeless tobacco details: 2 cans a day Second hand smoke exposure: No Alcohol intake: never History of recent travel: No Vitals/I&O/Wt Last Vital Signs Temp 97.7 F 06/11/20 11:10 Pulse 85 06/11/20 11:10 Resp 22 H 06/11/20 11:10 BP 152/77 06/11/20 11:10 Pulse Ox 94 06/11/20 11:10 06/10/20 06/11/20 06/11/20 22:59 06:59 14:59 Output Total 2400 / 3800 1200 / 5000 900 / 900 Balance -2400 / -3800 -1200 / -5000 -900 / -900 Weight last 48 hrs Weight 333 lb 3.2 oz Weight 300 lb Physical Exam Narrative: EXAM NARRATIVE: GENERAL: Patient is alert, awake and oriented x3. [] NECK: No jugular vein distension. [] HEENT: No cyanosis. No icterus. No pallor. [] HEART: Regular S1 and S2. No murmur, rub or gallop. [] LUNGS: Clear to auscultate bilaterally. [] ABDOMEN: Soft, nontender and nondistended. Positive bowel sounds. No guarding, rebound or tenderness. [] CENTRAL NERVOUS SYSTEM: Grossly nonfocal. [] EXTREMITIES: Lower extremities with 1+ edema. Has left leg BKA. Hospital Course Hospital Course 54 year old male with past medical history of diabetes, hypertension, obstructive sleep apnea, tobacco abuse, [id number] amputation on the left side who was referred to cardiology for assessment of chest pain. As he was having worsening chest pain symptoms,he was scheduled to have left heart cath with possible percutaneous coronary intervention. Procedure was scheduled with anesthesia as patient has morbid obesity, chronic back pain on pain meds, left BKA, right leg contracture, inability to lay down flat. Patient had chewed tobacco the morning of procedure and anesthesia wanted to wait for 6 hours before proceeding with the procedure. 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 Also as he was NPO through the night and day and is on significant insulin doses, his blood glucose had to be closely monitored. Patient stayed in hospital overnight. Next morning, he underwent coronary angiogram that did not show significant coronary artery disease. Patient was discharged in a stable condition and we added Isosorbide mononitrate as patient had likely microvascular dysfunction. SSS Data Data Completed and Pending: Pending at discharge Category Date Time Status EDUCATION PROGRAM ASSOCIATE request for service Routin e Exams 06/11/20 07:00 Taken Diagnoses at Discharge Discharge Diagnosis (1) Chest pain: Status: Acute (2) Essential hypertension: Status: Acute (3) Diabetes mellitus: Status: Acute Discharge Plan Discharge Patient Disposition: Home Condition: Stable Prescriptions: New isosorbide mononitrate 30 mg tablet extended release 24 hr 30 mg PO DAILY Qty: 60 RF: 2 Continued Farxiga 10 mg tablet 10 mg PO QAM RF: 0 montelukast 10 mg tablet 10 mg PO DAILY RF: 0 labetalol 300 mg tablet 300 mg PO .COMPLEX RF: 0 testosterone cypionate 200 mg/mL kit 200 mg IM .COMPLEX RF: 0 celecoxib [Celebrex] 200 mg capsule 200 mg PO DAILY RF: 0 tamsulosin [Flomax] 0.4 mg capsule 0.4 mg PO ONCE RF: 0 allopurinol 300 mg tablet 300 mg PO DAILY RF: 0 Novolin R Regular U-100 Insuln 100 unit/mL solution See Rx Instructions SUBCUT TID RF: 0 Zyrtec 10 mg capsule 10 mg PO DAILY RF: 0 Osteo Bi-Flex Triple Strength 750 mg-644 mg- 30 mg-1 mg tablet 1 tab PO BID RF: 0 zinc 50 mg tablet 50 mg PO DAILY RF: 0 vitamin A palmitate 10,000 unit capsule 10,000 unit PO DAILY RF: 0 Restasis 0.05 % dropperette 1 drop ophthalmic (eye) DAILY RF: 0 erythromycin 5 mg/gram (0.5 %) ointment 1 applic ophthalmic (eye) TID RF: 0 ferrous sulfate 325 mg (65 mg iron) tablet 325 mg PO .COMPLEX RF: 0 Refresh Tears 0.5 % drops 1 drop ophthalmic (eye) DAILY PRN (Reason: Dry Eyes) RF: 0 tobramycin-dexamethasone [TobraDex] 0.3-0.1 % drops,suspension 1 drop ophthalmic (eye) .COMPLEX RF: 0 cholecalciferol (vitamin D3) 1,000 unit capsule 1,000 unit PO DAILY RF: 0 Tresiba FlexTouch U-200 200 unit/mL (3 mL) insulin pen See Rx Instructions SUBCUT DAILY RF: 0 Nasal Decongestant (PE) 10 mg tablet 10 mg PO Q6H RF: 0 nystatin 100,000 unit/gram powder 1 applic TOPICAL BID Qty: 60 RF: 3 cyanocobalamin (vitamin B-12) 1,000 mcg/mL solution 1,000 mcg SUBCUT .COMPLEX Qty: 1 RF: 3 fluticasone propionate 50 mcg/actuation spray,suspension 1 spray INTRANASAL BID Qty: 15.8 RF: 6 amlodipine 10 mg tablet See Rx Instructions .ROUTE .COMPLEX Qty: 30 RF: 5 amitriptyline 75 mg tablet 75 mg PO BID Qty: 180 RF: 1 olmesartan [Benicar] 20 mg tablet 20 mg PO DAILY Qty: 30 RF: 0 atorvastatin 20 mg tablet 20 mg PO ONCE Qty: 30 RF: 11 esomeprazole magnesium 40 mg Capsule,Delayed Release(Dr/Ec) 40 mg PO BID RF: 0 Vitamin 1 tab PO DAILY RF: 0 Myrbetriq 50 mg Tablet Extended Release 24 Hr 50 mg PO DAILY RF: 0 Held metformin 1,000 mg tablet extended release 24hr 1,000 mg PO BID Qty: 60 RF: 5 Hold Instructions: Resume on 06/13/20. No Action hydrocodone-acetaminophen 5-325 mg tablet 1 tab PO TID PRN (Reason: pain) 30 Days Qty: 90 RF: 0 hydrocodone-acetaminophen 5-325 mg tablet 1 tab PO TID PRN (Reason: pain) 30 Days Qty: 90 RF: 0 diclofenac sodium [Voltaren] 1 % gel 4 g TOPICAL QID PRN (Reason: pain) 30 Days Qty: 300 RF: 1 Discharge Orders: Discharge Order (Routine); Ordered 06/11/20 Ordered By: González Sanabria Referrals: González Sanabria M.D [Physician] - 1 month (Please follow-up with Dr. Sanabria on July 10 at 3:00P.M. If have any questions or need to reschedule. Please call ) Becki Alonso FNP [Nurse Practitioner] - (Please follow-up with Becki Alonso on June 19 at 11:00A.M. If have any questions or need to reschedule. Please call ) Discharge Diet: Cardiac Discharge Activity: Increase activity as tolerated Patient Instructions: Isosorbide Mononitrate (By mouth), Left Heart Catheterization (DC), Sleep Apnea Syndrome (DC), Hypertension (DC), Chest Pain Stoplight, Post Angiogram Home Care Instructions Activity Restrictions/Additional Instructions: Please do not lift more than5 pounds of weight for the next 5 days Attestations Medical Necessity Statement*: Care not expected to cross 2 midnights. 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
[2020-06-11 13:09] LABS: Glucose Point of Care 182 mg/dL (70-110)
--- NOTE | 2020-06-11 16:43 | PC.NURSE ---
patient discharge home at this time, patient provided discharge instructions as well as education on medications and diagnosis patient verbalized understanding. patient accompanied to transportation services in own wheel chair with all belongings and discharge instructions in hand. patient alert oriented and in stable condition.
== END 2020-06-11 16:43 | disposition home or self-care (01) ==
LOC: CSU 08:28
PROVIDERS: Admitting Provider Internal Medicine; PCP Nurse Practitioner; Visit Provider Internal Medicine
DX: R07.9 Chest pain, unspecified (principal); I10 Essential (primary) hypertension; E11.9 Type 2 diabetes mellitus without complications; G47.33 Obstructive sleep apnea (adult) (pediatric); F17.210 Nicotine dependence, cigarettes, uncomplicated; Z89.612 Acquired absence of left leg above knee; N40.0 Benign prostatic hyperplasia without lower urinary tract symptoms; M17.0 Bilateral primary osteoarthritis of knee; F17.220 Nicotine dependence, chewing tobacco, uncomplicated; Z79.4 Long term (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 of insulin; I25.2 Old myocardial infarction
CPT/HCPCS: 12345; 36416; 82962; 93452; 96372; C1769; C1887; C1894; G0378; J1644; J1815 ×2; J2250; J3010; J3490; J7030; Q9967

== ENCOUNTER → 2020-06-14 12:47 | Outpatient (BNVA) | payer MEDICARE, MEDICAID, SELFPAY | PROVIDERS: PCP Nurse Practitioner; Visit Provider Anesthesiology | DX: G89.29 Other chronic pain (principal); M54.9 Dorsalgia, unspecified; M25.511 Pain in right shoulder; M25.561 Pain in right knee; F17.220 Nicotine dependence, chewing tobacco, uncomplicated; Z89.612 Acquired absence of left leg above knee; Z79.891 Long term (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 of opiate analgesic | CPT/HCPCS: 99214 ==

== ENCOUNTER 2020-08-06 13:17 | Outpatient (CLI) | payer MEDICARE, MEDICAID, SELFPAY ==
[2020-08-06] MEDS: iohexol 300 mg/mL 50 mL Btl PO (14:05)
--- NOTE | 2020-08-06 14:30 | CT_ITS ---
WS: [id number] CT ABDOMEN AND PELVIS WITH CONTRAST HISTORY: R19.00 - Intra-abdominal and pelvic swelling, mass and lump, unspecified site TECHNIQUE: Imaging performed of the abdomen and pelvis with IV contrast. Single phase imaging of the abdomen. Coronal and sagittal reformats are submitted. All CT scans at [facility] use at least one of these dose optimization techniques: automated exposure control; mA and/or kV adjustment per patient size (includes targeted exams where dose is matched to clinical indication); or iterativ e reconstruction. IV CONTRAST: Omnipaque 350; 95 mL IV. Oral contrast: Yes. DLP: 1500.84 mGycm COMPARISON: 07/11/2017 Lower thorax: Lung bases are clear. Heart is normal size. No hiatal hernia. Liver/biliary system: Normal size with no intrahepatic dilatation. Gallbladder: Gallbladder is very mildly over distended. No stones or inflammatory process. Pancreas: Normal. Spleen: Normal. Adrenal glands: Normal. Right kidney: Normal. Left kidney: Normal. Aorta: Mild atherosclerosis with no aneurysm. Lymphadenopathy: None. Free fluid: None. GI tract: Normal appendix. No obstruction. No wall thickening or colitis. Abdominal wall: No mass identified. There is a very small amount of edema along the anterior abdomina l wall. No hernia. Pelvis: Moderately distended urinary bladder. No free fluid or adenopathy in the pelvis. Bones: Severe bilateral degenerative changes at the hip joints, RIGHT greater than LEFT. CT/CT abdomen pelvis w con* 18116 IMPRESSION: 1. No acute abdominal or pelvic abnormalities or mass identified. 2. No adenopathy or ascites. 3. Very mildly hydropic gallbladder similar to prior studies. 4. Severe degenerative changes at the hip joints bilaterally.
[2020-08-06] MEDS: iohexol 350 mg/mL 100 mL Btl IV (14:55)
== END 2020-08-06 13:18 | disposition home or self-care (01) ==
LOC: RADWPI 13:18
PROVIDERS: PCP Nurse Practitioner; Visit Provider Surgery
DX: R19.00 Intra-abdominal and pelvic swelling, mass and lump, unspecified site (principal)
CPT/HCPCS: 74177; Q9967

== ENCOUNTER → 2020-08-07 14:03 | Outpatient (BNVA) | payer MEDICARE, MEDICAID, SELFPAY | PROVIDERS: PCP Nurse Practitioner; Visit Provider Anesthesiology | DX: G89.29 Other chronic pain (principal); M54.5 Low back pain; M25.561 Pain in right knee; M25.511 Pain in right shoulder; S78.119A Complete traumatic amputation at level between unspecified hip and knee, initial encounter; X58.XXXA Exposure to other specified factors, initial encounter; F17.220 Nicotine dependence, chewing tobacco, uncomplicated; Z89.612 Acquired absence of left leg above knee; Z79.891 Long term (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 of opiate analgesic | CPT/HCPCS: 99214 ==

== ENCOUNTER → 2020-09-20 09:34 | Outpatient (BNVA) | payer MEDICARE, MEDICAID, SELFPAY | PROVIDERS: PCP Nurse Practitioner; Visit Provider Surgery | DX: Z01.812 Encounter for preprocedural laboratory examination (principal); Z20.822 Contact with and (suspected) exposure to COVID-19 | CPT/HCPCS: 87635 ==

== ENCOUNTER 2020-09-25 08:12 | Day surgery (SDC) | payer MEDICARE, MEDICAID, SELFPAY ==
[2020-09-23 13:29] VITALS: BMI 43.4
--- NOTE | 2020-09-25 08:26 | P.ANESASSM_ITS ---
Pre-Anesthetic Assessment Pre-Anesthetic Assessment: Height/Weight: Height 1.83 m Weight 145.15 kg Preop Diagnosis: epigastric pain Proposed Procedure: Operation Date: 09/25/20 09:30 Proposed Procedures p Colonoscopy 07444 r10.13(Not Applicable) - Silvino Joshua MD Familial anesthetic complications: none Was Beta Tonia taken within 24 hours: Yes Was Clonidine taken within 24 hours: N/A Last intake: > 8 hrs Social: Social History: Tobacco and No alcohol Comment: last chewed tobacco at midnight - black tongue Exam: Pre-Anes Outpt Exam: alert, oriented x 3, clear to auscultation bilaterally and regular rate & rhythm Airway: Cervical ROM: WNL MP: 4 Dentition: Full Additional comments: full almodovar, large neck circumference Pulmonary: Pulmonary: Sleep apnea CV/HEM: CV/HEM: Angina (Stable) (Told his capillaries at bottom of heart spasm - placed on isosorbide) 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 Likely microvascular dysfunction. 2. No significant disease noted in the Left Main, LAD, Circumflex, or RCA coronary arteries. 3. Normal left ventricular systolic function. Ejection fraction of 50%. GI: GI: GERD Metabolic: Metabolic: DM, Hyperlipidemia and Morbid obesity Musc/skel: Musc/skel: OA/DJD (r shoulder has torn rotator cuff, will have patient get into comfortable position before inducing anesthesia) Comments: s/p AKA in wheelchair Neuropsych: Neuropsych: Seizure (years ago - thought to be stress-induced) Anesthetic Plan: ASA status: 3 Anesthesia: MAC Risk of > 500 ml blood loss (7ml/kg in children): No PFSH Anesthesia PFSH: Medical History Amputation above knee Left BPH (benign prostatic hyperplasia) Chronic low back pain Chronic right shoulder pain Diabetes mellitus Diabetes type 2, controlled Dysuria-frequency syndrome Encounter for long-term use of opiate analgesic Essential hypertension History of left above knee amputation Primary osteoarthritis of both knees r knee Right knee pain Seizure Shoulder pain BILATERAL Sleep apnea Surgical History History of shoulder surgery 2001 x 2 L shoulder Family History Other Heart disease Hypertension Social History Smoking and tobacco status: smoker, details unknown smokeless tobacco Smokeless tobacco user: chewing tobacco Smokeless tobacco details: 2 cans a day Second hand smoke exposure: No Alcohol intake: never History of recent travel: No Data Anesthesia Cardiac Studies: No Data to Display
[2020-09-25 08:59] VITALS: BP 111/65; PULSE 77; RESP 18; TEMP 36.8; O2SAT 93
--- NOTE | 2020-09-25 09:19 | PC.NURSE ---
\pt states he has generalized all over chronic joint pain. Rates pain at a 7, takes pain medication and pain stays at a 7. States nothing makes pain better or worse.
--- NOTE | 2020-09-25 09:53 | PC.NURSE ---
\patient states chronic joint pain, rates constant 7, takes pain medication daily.
[2020-09-25] MEDS: sodium chloride 0.9% 1,000 ML 30 ML IV (09:58)
[2020-09-25 10:02] LABS: Glucose Point of Care 132 mg/dL (70-110)
--- NOTE | 2020-09-25 10:35 | W.PM.OPSFHP ---
Same Day Surgery H&P Indication for Procedure/HPI DATE OF PROCEDURE: September 25, 2020 CHIEF COMPLAINT/INDICATIONFOR SURGICAL PROCEDURE: Screening colonoscopy PREOP DIAGNOSIS: Screening colonoscopy PLANNED PROCEDRUE: Operation Date: 09/25/20 09:30 Proposed Procedures p Colonoscopy 23524 [id number](Not Applicable) - Silvino Joshua MD This is a pleasant 55 years old gentleman that comes today escorted by his sister for follow-up status post CT scan of the abdomen and pelvis that was done based on the fact there is a concern of left upper quadrant ventral hernia. CT scan of the abdomen and pelvis did show 1. No acute abdominal or pelvic abnormalities or mass identified. 2. No adenopathy or ascites. 3. Very mildly hydropic gallbladder similar to prior studies. 4. Severe degenerative changes at the hip joints bilaterally. When further asking the question about his colonoscopy history he did report that he is due for screening colonoscopy as last one was tempted few years ago and the colon prep was suboptimal. Interim history 09/25/2020 Patient comes today for screening colonoscopy ROS All systems have been reviewed negative except as per the above or per problem list Medications/Allergies* Home Medications Medication Instructions Recorded Confirmed Type allopurinol 300 mg tablet 300 mg PO DAILY tab 05/08/19 09/23/20 History carboxymethylcellulose sodium 0.5 1 drop OPHTHALMIC (EYE) DAILY PRN 05/08/19 09/25/20 History % eye drops ml celecoxib 200 mg capsule 200 mg PO DAILY 05/08/19 09/25/20 History cetirizine 10 mg capsule 10 mg PO DAILY cap 05/08/19 09/25/20 History cholecalciferol (vitamin D3) 25 1,000 unit PO DAILY cap 05/08/19 09/25/20 History mcg (1,000 unit) capsule cyclosporine 0.05 % eye drops in a 1 drop OPHTHALMIC (EYE) DAILY each 05/08/19 09/25/20 History dropperette dapagliflozin 10 mg tablet 10 mg PO QAM 05/08/19 09/25/20 History erythromycin 5 mg/gram (0.5 %) eye 1 applic OPHTHALMIC (EYE) TID 05/08/19 09/25/20 History ointment (3.5 gram tube) ferrous sulfate 325 mg (65 mg 325 mg PO .COMPLEX 05/08/19 09/25/20 History iron) tablet glucosamine 750 [id number] 1 tab PO BID 05/08/19 09/25/20 History no1 644 mg-C 30 mg-lisa 1 mg tablet insulin regular human 100 unit/mL See Rx Instructions SUBCUT TID 05/08/19 09/25/20 History injection solution labetalol 300 mg tablet 300 mg PO .COMPLEX 05/08/19 09/25/20 History montelukast 10 mg tablet 10 mg PO DAILY tab 05/08/19 09/25/20 History tamsulosin 0.4 mg capsule 0.4 mg PO ONCE 05/08/19 09/25/20 History testosterone cypionate 200 mg/mL 200 mg IM .COMPLEX 05/08/19 09/25/20 History intramuscular kit tobramycin 0.3 %-dexamethasone 0.1 1 drop OPHTHALMIC (EYE) .COMPLEX 05/08/19 09/25/20 History % eye drops,suspension vitamin A palmitate 10,000 unit 10,000 unit PO DAILY cap 05/08/19 09/25/20 History capsule zinc 50 mg tablet 50 mg PO DAILY tab 05/08/19 09/25/20 History insulin degludec 200 unit/mL (3 See Rx Instructions SUBCUT DAILY 05/17/19 09/25/20 History mL) subcutaneous pen ml phenylephrine HCl 10 mg tablet 10 mg PO Q6H 07/04/19 09/25/20 History Myrbetriq 50 mg PO DAILY 01/24/20 09/25/20 History Vitamin 1 tab PO DAILY 01/24/20 09/25/20 History esomeprazole magnesium 40 mg 60 mg PO BID cap 07/25/20 08/17/20 History capsule,delayed release amlodipine 10 mg PO DAILY 09/23/20 09/25/20 History Allergies/Adverse Reactions Allergy/AdvReac Type Severity Reaction Status Date / Time Penicillins Allergy ALGY-Hives Verified 08/17/20 10:07 Sulfa (Sulfonamide Allergy ALGY-Hives Verified 08/17/20 10:07 Antibiotics) Current Medications: Generic Name Dose Route Start Last Admin Trade Name Freq PRN Reason Stop Dose Admin Sodium Chloride 1,000 mls @ 30 mls/hr 09/25/20 09:00 09/25/20 09:58 Sodium Chloride 0.9% IV 09/26/20 08:59 30 mls/hr .Q24H DOMITILA Administration Pertinent History/Comorbid Conditions* Medical History (Updated 08/17/20 @ 10:08 by Silvino Joshua MD) Amputation above knee Left BPH (benign prostatic hyperplasia) Chronic low back pain Chronic right shoulder pain Diabetes mellitus Diabetes type 2, controlled Dysuria-frequency syndrome Encounter for long-term use of opiate analgesic Essential hypertension History of left above knee amputation Primary osteoarthritis of both knees r knee Right knee pain Seizure Shoulder pain BILATERAL Sleep apnea Surgical History (Updated 05/11/19 @ 12:08 by Amanda Odell NP) History of shoulder surgery 2002 x 2 L shoulder Family History (Updated 05/08/19 @ 13:27 by Dafne Greenberg LPN) Heart disease Hypertension Social History Smoking and tobacco status: smoker, details unknown smokeless tobacco Smokeless tobacco user: chewing tobacco Smokeless tobacco details: 2 cans a day Second hand smoke exposure: No Alcohol intake: never History of recent travel: No Pertinent Exam Findings alert, oriented x 3, clear to auscultation bilaterally, regular rate & rhythm and procedure specific exam findings (Abdominal examination nontender nondistended soft morbidly obese) Recommendations Surgery/Procedure today (Screening colonoscopy) Other Plans: Plan of care; After thorough history and physical examination and reviewing the chart, plan to perform screening colonoscopy. I discussed with the patient in details the risks,benefits,alternatives and indications.The risk of aspiration, bleeding, soft tissue injury, perforation of the colon and other potential concomitant complications were explained to the patient in details,also the potential need for Laproscoy/Laparotomy to repair any related complications including but not limited to colectomy and or Closotomy.The patient understood this well and did agree to proceed. Rationale was carefully and clearly discussed with the patient.Appropriate informed consent have been reviewed and signed All questions have been answered and all concerns have been addressed to patient's satisfaction. Verbal and written Instructions were given to the patient for colonoscopy prep Coding Level of Care Code Acute Information Management Specialist for Jeronimo Enamorado
[2020-09-25 11:06] VITALS: BP 110/56; PULSE 77; RESP 18; TEMP 37.1; O2SAT 92
--- NOTE | 2020-09-25 11:09 | ANE.PACU2 ---
Inpatient post-anesthesia follow up: Airway intact: Yes Vital signs: Temperature 98.3 F Pulse Rate 77 Respiratory Rate 18 Blood Pressure 111/65 Pulse Oximetry 93 Oxygen Delivery Me thod Oxygen Flow Rate Fraction of Inspir ed Oxygen Hydration adequate: Yes Nausea and vomiting: No Pain level: 1 Mental status: Baseline
[2020-09-25 11:17] VITALS: BP 114/56; PULSE 77; RESP 18; O2SAT 91
== END 2020-09-25 12:00 | disposition home or self-care (01) ==
PROVIDERS: PCP Nurse Practitioner; Visit Provider Surgery
PROC: 0DJD8ZZ Inspection of Lower Intestinal Tract, Via Natural or Artificial Opening Endoscopic (ICD-10-PCS; CPT 45378; principal; 2020-09-25 09:30)
DX: Z12.11 Encounter for screening for malignant neoplasm of colon (principal); N40.0 Benign prostatic hyperplasia without lower urinary tract symptoms; E11.9 Type 2 diabetes mellitus without complications; I10 Essential (primary) hypertension; Z79.4 Long term (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 of insulin; G47.30 Sleep apnea, unspecified; F17.220 Nicotine dependence, chewing tobacco, uncomplicated; E78.5 Hyperlipidemia, unspecified; E66.01 Morbid (severe) obesity due to excess calories; Z68.41 Body mass index [BMI] 40.0-44.9, adult; Z99.3 Dependence on wheelchair
CPT/HCPCS: 36416; 82962; 96360; G0121; J2704; J7030

== ENCOUNTER → 2020-10-11 13:06 | Outpatient (BNVA) | payer MEDICARE, MEDICAID, SELFPAY | PROVIDERS: PCP Nurse Practitioner; Visit Provider Anesthesiology | DX: G89.29 Other chronic pain (principal); M54.5 Low back pain; M25.561 Pain in right knee; M25.511 Pain in right shoulder; F17.220 Nicotine dependence, chewing tobacco, uncomplicated; Z79.891 Long term (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 of opiate analgesic | CPT/HCPCS: 99214 ==

== ENCOUNTER → 2020-12-11 13:05 | Outpatient (BNVA) | payer MEDICARE, MEDICAID, SELFPAY | PROVIDERS: PCP Nurse Practitioner; Visit Provider Nurse Practitioner | DX: G89.29 Other chronic pain (principal); M54.5 Low back pain; M25.561 Pain in right knee; M25.511 Pain in right shoulder; S78.119A Complete traumatic amputation at level between unspecified hip and knee, initial encounter; X58.XXXA Exposure to other specified factors, initial encounter; F17.220 Nicotine dependence, chewing tobacco, uncomplicated; Z79.891 Long term (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 of opiate analgesic; Z02.89 Encounter for other administrative examinations; Z71.6 Tobacco abuse counseling | CPT/HCPCS: 99213; 99214 ==

== ENCOUNTER → 2021-02-05 12:42 | Outpatient (BNVA) | payer MEDICARE, MEDICAID, SELFPAY | PROVIDERS: PCP Nurse Practitioner; Visit Provider Nurse Practitioner | DX: G89.29 Other chronic pain (principal); M54.50 Low back pain, unspecified; F17.210 Nicotine dependence, cigarettes, uncomplicated; Z89.612 Acquired absence of left leg above knee; Z79.891 Long term (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 of opiate analgesic; Z71.9 Counseling, unspecified | CPT/HCPCS: 99213 ==

== ENCOUNTER 2021-02-05 13:19 | Outpatient (CLI) | payer MEDICARE, MEDICAID, SELFPAY ==
--- NOTE | 2021-02-05 13:27 | XR_ITS ---
WS: [id number] Chest 2 views, 02/05/2021 Clinical Data: SHORTNESS OF BREATH Comparison: AP chest, 07/11/2017. Findings: No nodules, masses or effusions are seen. The heart is slightly enlarged. The pulmonary vas cularity is not increased. No pneumonia or pneumothorax is seen. The aortic arch shows mild tortuosit y. There are healed right sixth and seventh rib fractures. XR/XR chest 2V* [id number] Impression: Atherosclerosis.
== END 2021-02-05 13:20 | disposition home or self-care (01) ==
PROVIDERS: PCP Nurse Practitioner; Visit Provider Nurse Practitioner
DX: R06.02 Shortness of breath (principal); I70.90 Unspecified atherosclerosis
CPT/HCPCS: 71046

== ENCOUNTER 2021-04-10 13:07 | Outpatient (CLI) | payer MEDICARE, MEDICAID, SELFPAY ==
--- NOTE | 2021-04-10 13:14 | XR_ITS ---
WS: [id number] LEFT CLAVICLE TECHNIQUE: 2 views of the left clavicle. CLINICAL INFORMATION: ANTERIOR DISLOCATION OF LEFT STERNOCLAVICULAR JOINT COMPARISON: None. FINDINGS: Previously described healed fracture involving the scapula with sclerosis. Clavicle appears normal. N ormal AC joint. Normal glenohumeral joint. XR/[place] [id number] IMPRESSION: 1. Normal left clavicle. 2. Prior healed left scapular fracture
--- NOTE | 2021-04-10 13:14 | XR_ITS ---
WS: [id number] INDICATION: Sternoclavicular joint pain TECHNIQUE: 5 views of the left sternoclavicular joint and sternum. Exam is limited due to body habitu s and wheelchair positioning FINDINGS: Prior healed left scapular fracture. Sternum appears normal considering limitations. Asymme tric sternoclavicular joint appears chronically dislocated with evidence of prior healed fractures. T his appears chronic. 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
== END 2021-04-10 13:08 | disposition home or self-care (01) ==
PROVIDERS: PCP Nurse Practitioner; Visit Provider Nurse Practitioner
DX: S43.215A Anterior dislocation of left sternoclavicular joint, initial encounter (principal); X58.XXXA Exposure to other specified factors, initial encounter
CPT/HCPCS: 71120; 73000

== ENCOUNTER 2021-07-14 13:43 | Outpatient (CLI) | payer MEDICARE, MEDICAID, SELFPAY ==
--- NOTE | 2021-07-14 14:05 | CT_ITS ---
WS: [id number] CT lumbar spine wo con* [id number] REASON FOR EXAM: VERTEBROGENIC LOWBACK PAIN IV CONTRAST ADMINISTERED: Noncontrast. FINDINGS: On the AP view there is rotatory scoliosis convex to the left. Normal lordosis on the lateral view. Bone density appears to be somewhat decreased for a male patient of age 55. There are mild biconcave compression deformities of L1-S1 without findings for acute compression frac ture. L1-L2: No significant disc displacement. L2-L3: Disc space relatively well preserved with no significant disc displacement. L3-L4: Space relatively well-preserved no significant disc displacement. L4-L5: Disc space relatively well preserved with no significant disc displacement. L5-S1: Disc space relatively well-preserved with no significant disc displacement. No spinal stenosis or foraminal stenosis is identified. Mild degenerative arthropathic changes in the facet joints at L4-L5 and L5-S1 with subchondral sclero sis, narrowing of the joint space, and marginal osteophytes. Degenerative gas in the facet joint spac es at L4-L5 and L5-S1 on the right. Similar arthropathic changes seen in the sacroiliac joints with d egenerative gas in both joint spaces. CT/CT lumbar spine wo con* [id number] IMPRESSION: Apparent decreased bone density clinical correlation to be made. No significant discogenic abnormality. Degenerative arthropathy in the facet joints L4-S1 and sacroiliac joints. TOTAL EXAM DLP: 1785.[address] scans at [facility] use at least one of these dose optimizati on techniques: automated exposure control; mA and/or kV adjustment per patient size (includes targeted exams where dose is matched to clinical indication); or iterative reconstruction.
== END 2021-07-14 13:44 | disposition home or self-care (01) ==
LOC: RAD 13:46
PROVIDERS: PCP Nurse Practitioner; Visit Provider Nurse Practitioner
DX: M54.51 Vertebrogenic low back pain (principal)
CPT/HCPCS: 72131

== ENCOUNTER → 2021-11-11 12:59 | Outpatient (BNVA) | payer MEDICARE, MEDICAID, SELFPAY | PROVIDERS: PCP Nurse Practitioner; Visit Provider Nurse Practitioner Family | DX: I10 Essential (primary) hypertension (principal); F17.220 Nicotine dependence, chewing tobacco, uncomplicated | CPT/HCPCS: 99213 ==

== ENCOUNTER 2022-04-10 20:20 | Emergency (ER) | payer MEDICARE, MEDICAID, SELFPAY ==
--- NOTE | 2022-04-10 20:21 | ECG_ITS ---
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 Measurements Intervals [place] Rate: 97 P: 0 AR: 0 QRS: -5 QRSD: 126 T: 2 QT: 343 QTc: 436 Interpretive Statements ATRIAL FLUTTER/TACHYCARDIA INDETERMINATE AXIS RIGHT BUNDLE BRANCH BLOCK [120+ ms QRS DURATION, UPRIGHT V1, 40+ ms S IN I/aVL/V4/V5/V6] SEPTAL MYOCARDIAL INFARCTION , OF INDETERMINATE AGE [40+ ms Q WAVE IN V1/V2] Compared to ECG 07/11/2017 18:10:24 Indeterminate axis now present Right bundle-branch block now present Sinus rhythm no longer present Myocardial infarct finding still present Electronically Signed On 04-11-2022 16:40:28 MANAGER COMMUNITY by Jose Daniel Renner M.D. [id number]
--- NOTE | 2022-04-10 20:21 | XRR_ITS ---
PROCEDURE INFORMATION: Exam: XR Chest Exam date and time: 04/10/2022 8:51 PM Age: 56 years old Clinical indication: Pain; Shortness of breath; Chest pressure; Additional info: Cp TECHNIQUE: Imaging protocol: Radiologic exam of the chest. Views: 1 view. COMPARISON: CR XR chest 2V* [id number] 02/05/2021 1:34 PM FINDINGS: Lungs: No consolidation or effusion. Pleural spaces: No pneumothorax Heart/Mediastinum: The heart is large. Unchanged slight chronic venous congestion. Bones/joints: A few old right rib deformities. XR/XR chest 1V portable [id number] IMPRESSION: Stable chest with chronic findings but no acute process or significant change from 02/05/2021.
[2022-04-10 21:00] VITALS: BP 152/65; PULSE 66; RESP 16; O2SAT 93; BMI 57.6
[2022-04-10 21:06] VITALS: BP 108/64; PULSE 69; RESP 22; O2SAT 96
[2022-04-10 21:07] LABS: Basophils # 0.1 10^3/uL (0.0-0.1); Basophils % 0.2 %; Hematocrit 48.1 % (42.0-52.0); Hemoglobin 15.9 g/dL (11.7-16.6); Lymphocytes # 1.3 10^3/uL (0.8-4.8); Lymphocytes % 5.4 %; Mean Corpuscular HGB Conc 33.1 g/dL (30.0-36.0); Mean Corpuscular Hemoglobin 27.8 pg (28.0-34.0); Mean Corpuscular Volume 84.1 fl (80-94); Mean Platelet Volume 10.6 fL (7.4-10.4); Monocytes # 1.3 10^3/uL (0.2-0.9); Monocytes % 5.3 %; Neutrophils # 21.56 10^3/uL (1.8-7.7); Nucleated Red Blood Cells % 0 %; Platelet Count 352 10^3/cmm (130-400); Red Blood Count 5.72 10^6/uL (4.1-5.3); Red Cell Distribution Width 14.1 % (12.1-15.1); White Blood Count 24.5 10^3/uL (4.0-10.0)
--- NOTE | 2022-04-10 21:16 | ED_ITS ---
HPI - Chest Pain General: Chief Complaint: Chest Pain Stated Complaint: CHEST PRESSURE Time Seen by Provider: 04/10/22 20:22 Source: patient and EMS Mode of arrival: EMS Limitations: no limitations History of Present Illness: 56-year-old male states he has been having chest pain over the last hour and a half he states that the pain has been sharp in nature he denies any shortness of breath he states he wears oxygen as needed he is on 2 L here he states he had some palpitations as well. He appears to be in atrial flutter he is unsure if he has a history of that. Associated symptoms: Deny abdominal pain, dyspnea, fever(s), nausea or vomiting Review of Systems Const: Denies: fever(s), chills, body aches or change in appetite Eyes: Denies: blurry vision or eye discomfort ENMT: Denies: throat pain or dental pain Card: Reports: chest pain Resp: Denies: dyspnea GI: Denies: abdominal pain, nausea, vomiting or diarrhea : Denies: dysuria Musc: Denies: neck pain or back pain Skin/Breast: Denies: rash Neuro: Denies: headache(s) Psych: Denies: depression Dar[place]/Lymph: Denies: easy bruising All/Imm: Denies: urticaria PFSH ED PFSH: Medical History Amputation above knee Left BPH (benign prostatic hyperplasia) Chronic low back pain Chronic right shoulder pain Diabetes mellitus Diabetes type 2, controlled Dysuria-frequency syndrome Encounter for long-term use of opiate analgesic Encounter for screening colonoscopy Repeat screening colonoscopy in 10 years unless otherwise specified Essential hypertension History of left above knee amputation Primary osteoarthritis of both knees r knee Right knee pain Seizure Shoulder pain BILATERAL Sleep apnea Surgical History History of shoulder surgery 2002 x 2 L shoulder Family History Other Heart disease Hypertension Social History Smoking and tobacco status: current every day smoker (chew) smokeless tobacco Smokeless tobacco user: chewing tobacco Smokeless tobacco details: 2 cans a day Second hand smoke exposure: No Alcohol intake: never History of recent travel: No Physical Exam Const: COMMON NORMALS: no acute distress, patient oriented x3 and healthy appearing HENMT: COMMON NORMALS: normocephalic and atraumatic HEAD & SCALP: normocephalic and atraumatic Eye: COMMON NORMALS: Equal, round and reactive pupils present and EOMs intact bilaterally PUPIL: Yes Equal, round and reactive pupils present Neck/C-Spine: COMMON NORMALS: full ROM and supple Chest: COMMONS NORMALS: normal inspection of the chest and normal palpation of entire chest wall Resp: COMMON NORMALS: normal respiratory effort, No retractions, No use of accessory muscles and clear to auscultation bilaterally AUSCULTATION: clear to auscultation bilaterally Cardio: COMMON NORMALS: regular rate and No murmurs present (Cardio) RATE: regular rate RHYTHM: abnormal rhythm irregularly irregular GI: COMMON NORMALS: Normal to inspection, nondistended, normoactive bowel sounds present, Soft to palpation, non-tender and no masses PALPATION: Yes Soft to palpation Extremity: COMMON NORMALS: normal to inspection and full ROM Neuro: COMMON NORMALS: patient oriented x3, moves all extremities and no focal motor deficits Psych: COMMON NORMALS: mental status grossly normal, Normal thought process present and cooperative THOUGHT PROCESS: Normal thought process present Skin: COMMON NORMALS: no rashes or lesions noted and no wounds GENERAL SKIN EXAM: no rashes or lesions noted Course Vital Signs: Vital signs: Vital Signs Pulse Rate 89 04/11/22 00:14 Respiratory Rate 20 H 04/11/22 00:14 Blood Pressure 114/58 04/10/22 22:26 Pulse Oximetry 96 04/11/22 00:14 Oxygen Delivery Pa thod 04/10/22 21:06 Oxygen Flow Rate 2 04/10/22 21:06 MDM - Chest Pain Medical Decision Making Patient presents here with chest pain is initial repeat troponin here is normal CT was normal he does have an elevated white count I did not foremost he states he feels improved he states he had an appoint with his PCP next week he would like to go home we will discharge him he is to follow-up return if worsening he understands agrees to plan. Lab Data 04/10/22 20:55 04/10/22 20:55 Radiology Impressions Chest X-Ray 04/10/22 20:21 IMPRESSION: Stable chest with chronic findings but no acute process or significant change from 02/05/2021. Chest/Abdomen/Pelvis CT 04/10/22 21:59 IMPRESSION: 1. No definite acute finding. 2. A few chronic findings above. IMPRESSION: 1. No acute findings. 2. Constipation, atherosclerosis, large liver, and a few other chronic findings above. COMMENTS: Consistent with the [employer] [employer]'s Incidental Findings Committee white paper (J Am Henrique Radiol 2018): Any incidental renal lesion less than 1 cm or classified as too small to characterize, or any incidental cystic renal lesion characterized as simple-appearing, is likely benign. No follow-up imaging is recommended for these lesions per consensus recommendations based on imaging criteria. Laboratory Results WBC 24.5 10^3/uL (4.0-10.0) H 04/10/22 20:55 RBC 5.72 10^6/uL (4.1-5.3) H 04/10/22 20:55 Hgb 15.9 g/dL (11.7-16.6) 04/10/22 20:55 Hct 48.1 % (42.0-52.0) 04/10/22 20:55 MCV 84.1 fl (80-94) 04/10/22 20:55 MCH 27.8 pg (28.0-34.0) L 04/10/22 20:55 MCHC 33.1 g/dL (30.0-36.0) 04/10/22 20:55 RDW 14.1 % (12.1-15.1) 04/10/22 20:55 Plt Count 352 10^3/cmm (130-400) 04/10/22 20:55 MPV 10.6 fL (7.4-10.4) H 04/10/22 20:55 Neut % (Auto) 88.0 % 04/10/22 20:55 Lymph % (Auto) 5.4 % 04/10/22 20:55 [place] % (Auto) 5.3 % 04/10/22 20:55 Eos % (Auto) 0.0 % 04/10/22 20:55 Baso % (Auto) 0.2 % 04/10/22 20:55 Neut # (Auto) 21.56 10^3/uL (1.8-7.7) H 04/10/22 20:55 Lymph # (Auto) 1.3 10^3/uL (0.8-4.8) 04/10/22 20:55 [place] # (Auto) 1.3 10^3/uL (0.2-0.9) H 04/10/22 20:55 Eos # (Auto) 0.0 10^3/uL (0.0-0.8) 04/10/22 20:55 Baso # (Auto) 0.1 10^3/uL (0.0-0.1) 04/10/22 20:55 Nucleated RBC % (auto) 0 % 04/10/22 20:55 Nucleated RBCs # 0.0 /100WBC 04/10/22 20:55 Sodium 135 mmol/L (136-145) L 04/10/22 20:55 Potassium 5.2 mmol/L (3.5-5.1) H 04/10/22 20:55 Chloride 101 mmol/L (98-107) 04/10/22 20:55 Carbon Dioxide 17 mmol/L (22-29) L 04/10/22 20:55 Anion Gap 22.2 (5-19) H 04/10/22 20:55 BUN 24 mg/dL (6-20) H 04/10/22 20:55 Creatinine 1.2 mg/dL (0.7-1.2) 04/10/22 20:55 GFR Calculation 62.2 mL/min (90-130) L 04/10/22 20:55 Glucose 178 mg/dL (65-115) H 04/10/22 20:55 Calculated Osmolality 288 mOsm/kg (285-295) 04/10/22 20:55 Lactate 2.3 mmol/L (0.5-2.2) H 04/10/22 22:07 Calcium 10.1 mg/dL (8.5-10.5) 04/10/22 20:55 Total Bilirubin 0.5 mg/dL (0.15-1.2) 04/10/22 20:55 AST 33 U/L (0-40) 04/10/22 20:55 ALT 52 U/L (0-41) H 04/10/22 20:55 Alkaline Phosphatase 64 U/L (40-130) 04/10/22 20:55 Troponin T Baseline 57 ng/L (0-15) H 04/10/22 20:55 Troponin T 120 Minute 57.71 ng/L (0-15) H 04/10/22 22:35 Delta Troponin T 0.71 ABS# (0-10) 04/10/22 22:35 Total Protein 6.8 g/dL (6.6-8.7) 04/10/22 20:55 Albumin 4.3 g/dL (3.5-5.2) 04/10/22 20:55 Globulin 2.5 g/dL (1.3-4.6) 04/10/22 20:55 EKG Data EKG 1: I personally reviewed and interpreted this EKG as follows: EKG interpretation date: 04/10/22 EKG interpretation time: 20:50 Interpretation: atrial flutter hr [address] or t wave abnormalities qrs 126 qtc 397 Discharge Plan Discharge Patient Disposition: Home Clinical Impression: Chest pain, Leukocytosis Condition: Stable Prescriptions: No Action Farxiga 10 mg tablet 10 mg PO QAM montelukast 10 mg tablet 10 mg PO DAILY testosterone cypionate 200 mg/mL kit 200 mg IM .COMPLEX Rx Instructions: 200 mg IM one injection every two weeks; celecoxib [Celebrex] 200 mg capsule 200 mg PO DAILY tamsulosin [Flomax] 0.4 mg capsule 0.4 mg PO ONCE allopurinol 300 mg tablet 300 mg PO DAILY Novolin R Regular U-100 Insuln 100 unit/mL solution See Rx Instructions SUBCUT TID Rx Instructions: per sliding scale as needed TID SUBCUT three times daily; Zyrtec 10 mg capsule 10 mg PO DAILY Osteo Bi-Flex Triple Strength 750 mg-644 mg- 30 mg-1 mg tablet 1 tab PO BID zinc 50 mg tablet 50 mg PO DAILY vitamin A palmitate 10,000 unit capsule 10,000 unit PO DAILY Restasis 0.05 % dropperette 1 drop ophthalmic (eye) DAILY erythromycin 5 mg/gram (0.5 %) ointment 1 applic ophthalmic (eye) TID ferrous sulfate 325 mg (65 mg iron) tablet 325 mg PO .COMPLEX Rx Instructions: 325 mg PO at noon and bedtime; Refresh Tears 0.5 % drops 1 drop ophthalmic (eye) DAILY PRN (Reason: Dry Eyes) tobramycin-dexamethasone [TobraDex] 0.3-0.1 % drops,suspension 1 drop ophthalmic (eye) .COMPLEX Rx Instructions: 1 drp ophthalmic (eye) 1 gtt on , wed and wednesday; cholecalciferol (vitamin D3) 1,000 unit capsule 1,000 unit PO DAILY Tresiba FlexTouch U-200 200 unit/mL (3 mL) insulin pen See Rx Instructions SUBCUT DAILY Rx Instructions: 46 units in the am, 58 units in the pm SUBCUT daily; baclofen 10 mg tablet 10 mg PO BID budesonide-formoterol [Symbicort] 160-4.5 mcg/actuation HFA aerosol inhaler 2 puff inhalation Q12H diclofenac sodium 1 % gel 4 g TOPICAL QID PRN (Reason: pain) 30 Days Qty: 300 1RF hydrocodone-acetaminophen 5-325 mg tablet 1 tab PO TID PRN (Reason: pain) 30 Days Qty: 90 0RF Rx Instructions: fill on or after 02/14/21 Nasal Decongestant (PE) 10 mg tablet 10 mg PO Q6H isosorbide mononitrate 60 mg tablet extended release 24 hr 120 mg PO BID telmisartan 80 mg tablet 80 mg PO DAILY furosemide 20 mg tablet 40 mg PO BID Rx Instructions: 40 mg am and 20 mg pm clonidine HCl 0.2 mg tablet 0.3 mg PO BID nystatin 100,000 unit/gram powder 1 applic TOPICAL BID Qty: 60 3RF cyanocobalamin (vitamin B-12) 1,000 mcg/mL solution 1,000 mcg SUBCUT .COMPLEX Qty: 1 3RF Rx Instructions: 1,000 mcg SUBCUT every 5 weeks; fluticasone propionate 50 mcg/actuation spray,suspension 1 spray INTRANASAL BID Qty: 15.8 6RF amitriptyline 75 mg tablet 75 mg PO BID Qty: 180 1RF metformin 1,000 mg tablet extended release 24hr 1,000 mg PO BID Qty: 60 5RF Hold Instructions: Resume on 06/13/20. atorvastatin 20 mg tablet 20 mg PO ONCE Qty: 30 11RF diltiazem HCl 120 mg capsule,extended release 12 hr 120 mg PO BID metoprolol tartrate 100 mg tablet 200 mg PO BID Qty: 90 0RF Vitamin 1 tab PO DAILY Myrbetriq 50 mg Tablet Extended Release 24 Hr 50 mg PO DAILY esomeprazole magnesium 40 mg capsule,delayed release(DR/EC) 60 mg PO BID Discharge Orders: Discharge ED (Routine); Ordered 04/10/22 Ordered By: Rosalba Marcum Referrals: Bartolome Acharya FNP [Primary Care Provider] - 1-3 days Discharge Diet: Advance as tolerated Discharge Activity: Resume usual activity Patient Instructions: Chest Pain (ED) Coding Level of Care Code ED Instrumental Music Teacher for Hedyg Fwd Exam Comprehensive
[2022-04-10 21:32] LABS: Troponin(5th) Baseline 57 ng/L (0-15)
[2022-04-10 21:35] LABS: Alanine Aminotransferase 52 U/L (0-41); Albumin Level 4.3 g/dL (3.5-5.2); Alkaline Phosphatase 64 U/L (40-130); Anion Gap 22.2 (5-19); Aspartate Amino Transferase 33 U/L (0-40); Blood Urea Nitrogen 24 mg/dL (6-20); Calcium 10.1 mg/dL (8.5-10.5); Carbon Dioxide 17 mmol/L (22-29); Chloride 101 mmol/L (98-107); Globulin 2.5 g/dL (1.3-4.6); Glomerular Filtration Rate 62.2 mL/min (90-130); Glucose 178 mg/dL (65-115); Osmolality Calculated 288 mOsm/kg (285-295); Potassium 5.2 mmol/L (3.5-5.1); Sodium 135 mmol/L (136-145); Total Bilirubin 0.5 mg/dL (0.15-1.2); Total Protein 6.8 g/dL (6.6-8.7)
--- NOTE | 2022-04-10 21:59 | CTR_ITS ---
PROCEDURE INFORMATION: Exam: CT Chest With Contrast; Diagnostic Exam date and time: 04/10/2022 10:09 PM Age: 56 years old Clinical indication: Abdominal pain; Chest pressure; Additional info: Cp TECHNIQUE: Imaging protocol: Diagnostic computed tomography of the chest with contrast. Radiation optimization: All CT scans at this facility use at least one of these dose optimization techniques: automated exposure control; mA and/or kV adjustment per patient size (includes targeted exams where dose is matched to clinical indication); or iterative reconstruction. Contrast material: OMNIPAQUE 350; Contrast volume: 100 ml; Contrast route: INTRAVENOUS (IV); COMPARISON: CT chest w con* [id number] 06/27/2017 4:36 PM RADIATION DOSE METRICS: Total DLP (mGy-cm): 1908.53 FINDINGS: Thyroid: Vague thyroid nonspecific nodularity. Lungs: Unremarkable. No consolidation. No dominant mass or spiculated nodule. Pleural spaces: No pneumothorax. No pleural effusion. Heart: The heart is normal size. No pericardial effusion. Lymph nodes: No bulky mediastinal or hilar lymphadenopathy noted. Vasculature: No acute finding noted. No aortic aneurysm. Bones/joints: A few old right rib deformities are visualized. Mild scoliosis. Mild spine DJD. Soft tissues: Unremarkable. COMMENTS: Consistent with the [employer]'s Incidental Findings Committee white paper (J Am Henrique Radiol 2015): In patients aged 35 years and older with an incidental thyroid nodule equal to or greater than 1.[address], MRI or extrathyroidal US, further evaluation with dedicated thyroid US is recommended for patients with normal life expectancy and without comorbidities. For smaller nodules without suspicious features, no further evaluation or follow up is recommended. PROCEDURE INFORMATION: Exam: CT Abdomen And Pelvis With Contrast Exam date and time: 04/10/2022 10:09 PM Age: 56 years old Clinical indication: Abdominal pain; Chest pressure; Additional info: Cp TECHNIQUE: Imaging protocol: Computed tomography of the abdomen and pelvis with contrast. Radiation optimization: All CT scans at this facility use at least one of these dose optimization techniques: automated exposure control; mA and/or kV adjustment per patient size (includes targeted exams where dose is matched to clinical indication); or iterative reconstruction. Contrast material: OMNIPAQUE 350; Contrast volume: 100 ml; Contrast route: INTRAVENOUS (IV); COMPARISON: CT abdomen pelvis w con* [id number] 08/06/2020 2:41 PM RADIATION DOSE METRICS: Total DLP (mGy-cm): 1908.53 FINDINGS: Lungs: The visualized lung bases are clear. Liver: Liver is mildly enlarged. No focal liver mass is noted. Mild hepatic steatosis is certainly possible. Gallbladder and bile ducts: No calcified gallstones or biliary dilation identified. Pancreas: Unremarkable with no suspicious mass. No ductal dilation. Spleen: The spleen is not enlarged. No suspicious enhancing mass is noted. Adrenal glands: Normal. No mass. Kidneys and ureters: Minute left lower renal cyst measures about 1.3 cm. No hydronephrosis or enhancing renal mass noted. Stomach and bowel: Moderate constipation is likely. No bowel hernia visualized. Appendix: No evidence of appendicitis. Intraperitoneal space: Unremarkable. No free air. No suspicious fluid collection. Vasculature: Moderate diffuse vascular calcification. Lymph nodes: No enlarged lymph nodes. Urinary bladder: Unremarkable as visualized. Reproductive: Unremarkable as visualized. Bones/joints: Moderate bilateral hip DJD. Soft tissues: Anterior abdominal wall scarring. Other findings: The exam is challenging by body habitus. CT/CT chest abd pel w con* IMPRESSION: 1. No definite acute finding. 2. A few chronic findings above. IMPRESSION: 1. No acute findings. 2. Constipation, atherosclerosis, large liver, and a few other chronic findings above. COMMENTS: Consistent with the [employer]'s Incidental Findings Committee white paper (J Am Henrique Radiol 2018): Any incidental renal lesion less than 1 cm or classified as too small to characterize, or any incidental cystic renal lesion characterized as simple-appearing, is likely benign. No follow-up imaging is recommended for these lesions per consensus recommendations based on imaging criteria.
[2022-04-10] MEDS: iohexol 350 mg/mL 500 mL Btl (per mL) IV (22:13)
--- NOTE | 2022-04-10 22:21 | ECG_ITS ---
[facility] Test Date: 2022-04-10 Pat Name: Marciano Alonso Department: Room: Gender: Male Regulatory Assistant: : 1965 Requested By: Rosalba Marcum Order Number: [id number] Clarence MD: Jose Daniel Renner M.D. Measurements Intervals [place] Rate: 71 P: 0 W[place]: 0 QRS: -10 QRSD: 128 T: 6 QT: 393 QTc: 427 Interpretive Statements ATRIAL FLUTTER/TACHYCARDIA RIGHT BUNDLE BRANCH BLOCK [120+ ms QRS DURATION, UPRIGHT V1, 40+ ms S IN I/aVL/V4/V5/V6] SEPTAL MYOCARDIAL INFARCTION , OF INDETERMINATE AGE [40+ ms Q WAVE IN V1/V2] Compared to ECG 04/10/2022 20:50:08 Indeterminate axis no longer present Myocardial infarct finding still present Electronically Signed On 04-11-2022 16:44:45 JAVA WEB DEVELOPER by Jose Daniel Renner M.D. [email or web address]/store/OM/[id number]
[2022-04-10 22:26] VITALS: BP 114/58; PULSE 76; RESP 18; O2SAT 96
[2022-04-10 22:40] LABS: Lactate (Lactic Acid level) 2.3 mmol/L (0.5-2.2)
[2022-04-10 23:14] LABS: Troponin 5 2HR 57.71 ng/L (0-15)
[2022-04-10 23:22] LABS: Troponin 5 2HR Delta 0.71 ABS# (0-10)
[2022-04-10 23:37] VITALS: PULSE 70; RESP 19; O2SAT 95
[2022-04-11 00:14] VITALS: PULSE 89; RESP 20; O2SAT 96
--- NOTE | 2022-04-11 09:06 | ECG_ITS ---
[facility] Test Date: 2022-04-11 Pat Name: Marciano Alonso Department: Room: Gender: Male Frame Stripper: : 1965 Requested By: Sandro Kent Order Number: [id number] Clarence MD: Jose Daniel Renner M.D. Measurements Intervals [place] Rate: 150 P: 177 FL: 120 QRS: -13 QRSD: 116 T: 45 QT: 320 QTc: 505 Interpretive Statements SINUS TACHYCARDIA, POSSIBLE ATRIAL FLUTTER INDETERMINATE AXIS LOW QRS VOLTAGE IN PRECORDIAL LEADS [QRS DEFLECTION < 1.0 mV IN CHEST LEADS] PATTERN CONSISTENT WITH PULMONARY DISEASE INCOMPLETE RIGHT BUNDLE BRANCH BLOCK [90+ ms QRS DURATION, TERMINAL R IN V1/V2, 40+ ms S IN I/aVL/V4/V5/V6] ST ELEVATION, CONSIDER INFERIOR INJURY INTERPRETATION BASED ON A DEFAULT AGE OF 40 YEARS Compared to ECG 04/10/2022 22:21:39 Indeterminate axis now present Low QRS voltage now present Incomplete right bundle-branch block now present Electronically Signed On 04-11-2022 16:43:35 IMMIGRATION JUDGE by Jose Daniel Renner M.D. [id number] eldon
--- NOTE | 2022-04-11 09:45 | PC.SOCIAL ---
CM was contacted about patient. They state that a Medicaid ride has been arranged for stretcher, [facility] arrived and refused trip, they reported that patient was sitting on the side of the bed. CM called [facility] to check on the status of the ride, was told that it is in routing. Patient lives in [facility], asked if stretcher trip could be tripped out to them due to [facility]ios refusing. CM provided [facility] name and phone number. [facility] asked for contact name and number, provided Carmen and ER number of [phone]. CM updated Carmen.
[2022-04-11] MEDS: ondansetron 4 MG Tablet PO (09:50)
[2022-04-11] MEDS: metoprolol tartrate 50 mg Tablet 200 MG PO (09:50)
[2022-04-11] MEDS: isosorbide mononitrate ER 60 mg Tablet 120 MG PO (09:50)
[2022-04-11 11:10] VITALS: BP 154/97; PULSE 125
[2022-04-11 12:49] VITALS: BP 145/88; PULSE 133; RESP 18; O2SAT 94
[2022-04-11 13:02] VITALS: BP 145/88; PULSE 133; RESP 18; O2SAT 94
== END 2022-04-11 13:03 | disposition home or self-care (01) ==
PROVIDERS: Emergency Provider Emergency Medicine; PCP Nurse Practitioner
DX: R07.9 Chest pain, unspecified (principal); D72.829 Elevated white blood cell count, unspecified; Z79.84 Long term (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 of oral hypoglycemic drugs; Z79.4 Long term (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 of insulin; Z89.612 Acquired absence of left leg above knee; E11.9 Type 2 diabetes mellitus without complications; I10 Essential (primary) hypertension; F17.220 Nicotine dependence, chewing tobacco, uncomplicated
CPT/HCPCS: 36415; 71045; 71260; 74177; 80053; 83605; 84484; 85025; 93005; 99285; Q0162; Q9967

== ENCOUNTER → 2022-04-16 12:37 | Outpatient (BNVA) | payer MEDICARE, MEDICAID, SELFPAY | PROVIDERS: PCP Nurse Practitioner; Visit Provider Internal Medicine Cardiovascular Disease | DX: I10 Essential (primary) hypertension (principal); F17.220 Nicotine dependence, chewing tobacco, uncomplicated; R19.00 Intra-abdominal and pelvic swelling, mass and lump, unspecified site; G89.29 Other chronic pain; M54.59 Other low back pain; R07.9 Chest pain, unspecified; G47.30 Sleep apnea, unspecified; E11.9 Type 2 diabetes mellitus without complications; Z79.4 Long term (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 of insulin; I48.92 Unspecified atrial flutter; E66.01 Morbid (severe) obesity due to excess calories; Z68.42 Body mass index [BMI] 45.0-49.9, adult; Z89.612 Acquired absence of left leg above knee | CPT/HCPCS: 99215 ==

== ENCOUNTER 2022-04-26 16:36 | Emergency (ER) | payer MEDICARE, MEDICAID, SELFPAY ==
[2022-04-26] VITALS (62 sets, daily range): BP systolic 138–145; BP diastolic 65–84; PULSE 73–98; RESP 18–26; TEMP 36.9; O2SAT 91–98; BMI 8787.5
--- NOTE | 2022-04-26 16:58 | ED_ITS ---
HPI - SOB/Dyspnea General: Chief Complaint: Shortness of Breath/Dyspnea Stated Complaint: SOB; AFIB Time Seen by Provider: 04/26/22 16:58 History of Present Illness: HPI Narrative: Mr. Alonso is a 56-year-old gentleman presenting due to concern of atrial fibri llation and shortness of breath. He notes recent diagnosis of A. fib and is intermittently symptomatic with lightheadedness and chest fluttering. Intermittent symptoms present are moderate in intensity. Denies specific provoking factors. No other specific changes in health, exacerbating, or diana viating factors identified. Onset (ago): week(s) Context: other Timing: intermittent Severity: moderate Exacerbating factors: nothing Relieving factors: nothing Review of Systems General: Reports: 10 or more systems reviewed and unremarkable except in HPI and below PFSH ED PFSH: Medical History Amputation above knee Left Atrial flutter BPH (benign prostatic hyperplasia) Chronic low back pain Chronic right shoulder pain Diabetes mellitus Diabetes type 2, controlled Dysuria-frequency syndrome Encounter for long-term use of opiate analgesic Encounter for screening colonoscopy Repeat screening colonoscopy in 10 years unless otherwise specified Essential hypertension History of left above knee amputation Morbid obesity Primary osteoarthritis of both knees r knee Right knee pain Seizure Shoulder pain BILATERAL Sleep apnea Surgical History History of shoulder surgery 2002 x 2 L shoulder Family History Other Heart disease Hypertension Social History Smoking and tobacco status: current every day smoker (chew) smokeless tobacco Smokeless tobacco user: chewing tobacco Smokeless tobacco details: 2 cans a day Second hand smoke exposure: No Alcohol intake: never History of recent travel: No Physical Exam Const: COMMON NORMALS: alert GENERAL APPEARANCE: cooperative and well developed NUTRITIONAL APPEARANCE: obese HENMT: COMMON NORMALS: normocephalic and atraumatic HEAD & SCALP: normocephalic and atraumatic Eye: COMMON NORMALS: conjunctivae normal CONJUNCTIVA: Yes conjunctivae normal SCLERA: sclerae normal Neck/C-Spine: COMMON NORMALS: supple GENERAL: Yes trachea midline Resp: COMMON NORMALS: clear to auscultation bilaterally EFFORT & INSPECTION: Yes able to speak in complete sentences AUSCULTATION: clear to auscultation bilaterally Cardio: COMMON NORMALS: regular rate RATE: regular rate RHYTHM: abnormal rhythm irregularly irregular GI: COMMON NORMALS: Soft to palpation PALPATION: Yes Soft to palpation and No Tenderness to palpation present (GI) PERCUSSION: normal to percussion Extremity: GENERAL: Yes normal exam except as noted and No edema Neuro: COMMON NORMALS: moves all extremities SENSORIUM/ORIENTATION: Yes alert and No Orientation impaired Psych: COMMON NORMALS: mental status grossly normal and Normal thought process present THOUGHT PROCESS: Normal thought process present Course Vital Signs: Vital signs: Vital Signs Temperature 98.4 F 04/26/22 16:50 Pulse Rate 85 04/26/22 22:49 Respiratory Rate 18 04/26/22 22:49 Blood Pressure 145/84 04/26/22 22:49 Pulse Oximetry 95 04/26/22 22:49 Oxygen Delivery Me thod 04/26/22 16:50 MDM - SOB/Dyspnea Medical Decision Making 56-year-old gentleman with recent diagnosis of A. fib presenting with intermittent symptoms. Patient is nontoxic on exam. EKG shows atrial fibrillation, rate is well controlled, no STEMI. Labs notable for minimal leukocytosis which is improved from prior, normal hemoglobin. Metabolic panel similar to prior without acute intervention required, 2-hour delta troponin is negative. Viral panel negative. Chest ray with no lobar consolidation or pneumothorax. Prior heart catheter procedure reviewed. Most likely etiology patient symptoms is bronchitis. He is not requiring supplemental oxygen and is satisfactory for outpatient management. The results of ED evaluation were discussed with the patient including prescriptions and/or symptomatic cares (if applicable) including appropriate and responsible use, followup plan, and return precautions. The patient verbalized understanding and felt safe for discharge. Medical Records I reviewed the patient's medical records. Lab Data I reviewed the patient's lab results. 04/26/22 17:48 04/26/22 17:48 Labs/Radiology: Radiology Impressions Chest X-Ray 04/26/22 17:02 IMPRESSION: 1. No acute cardiopulmonary process. 2. Incidental/nonacute findings are listed in the report. Laboratory Results WBC 10.7 10^3/uL (4.0-10.0) H 04/26/22 17:48 RBC 4.78 10^6/uL (4.1-5.3) 04/26/22 17:48 Hgb 13.0 g/dL (11.7-16.6) 04/26/22 17:48 Hct 40.1 % (42.0-52.0) L 04/26/22 17:48 MCV 83.9 fl (80-94) 04/26/22 17:48 MCH 27.2 pg (28.0-34.0) L 04/26/22 17:48 MCHC 32.4 g/dL (30.0-36.0) 04/26/22 17:48 RDW 18.5 % (12.1-15.1) H 04/26/22 17:48 Plt Count 284 10^3/cmm (130-400) 04/26/22 17:48 MPV 9.6 fL (7.4-10.4) 04/26/22 17:48 Neut % (Auto) 78.9 % 04/26/22 17:48 Lymph % (Auto) 12.0 % 04/26/22 17:48 [place] % (Auto) 5.4 % 04/26/22 17:48 Eos % (Auto) 2.1 % 04/26/22 17:48 Baso % (Auto) 0.7 % 04/26/22 17:48 Neut # (Auto) 8.45 10^3/uL (1.8-7.7) H 04/26/22 17:48 Lymph # (Auto) 1.3 10^3/uL (0.8-4.8) 04/26/22 17:48 [place] # (Auto) 0.6 10^3/uL (0.2-0.9) 04/26/22 17:48 Eos # (Auto) 0.2 10^3/uL (0.0-0.8) 04/26/22 17:48 Baso # (Auto) 0.1 10^3/uL (0.0-0.1) 04/26/22 17:48 Nucleated RBC % (auto) 0 % 04/26/22 17:48 Nucleated RBCs # 0.0 /100WBC 04/26/22 17:48 D-Dimer <= 0.27 ug/mIFEU (0-0.59) 04/26/22 17:48 Sodium 135 mmol/L (136-145) L 04/26/22 17:48 Potassium 4.8 mmol/L (3.5-5.1) 04/26/22 17:48 Chloride 103 mmol/L (98-107) 04/26/22 17:48 Carbon Dioxide 22 mmol/L (22-29) 04/26/22 17:48 Anion Gap 14.8 (5-19) 04/26/22 17:48 BUN 21 mg/dL (6-20) H 04/26/22 17:48 Creatinine 1.4 mg/dL (0.7-1.2) H 04/26/22 17:48 GFR Calculation 52.1 mL/min (90-130) L 04/26/22 17:48 Glucose 179 mg/dL (65-115) H 04/26/22 17:48 Calculated Osmolality 287 mOsm/kg (285-295) 04/26/22 17:48 Calcium 9.7 mg/dL (8.5-10.5) 04/26/22 17:48 Total Bilirubin 0.2 mg/dL (0.15-1.2) 04/26/22 17:48 AST 22 U/L (0-40) 04/26/22 17:48 ALT 39 U/L (0-41) 04/26/22 17:48 Alkaline Phosphatase 65 U/L (40-130) 04/26/22 17:48 Troponin T Baseline 62 ng/L (0-15) H 04/26/22 17:48 Troponin T 120 Minute 55.25 ng/L (0-15) H 04/26/22 19:38 Delta Troponin T -6.75 ABS# (0-10) L 04/26/22 19:38 NT-Pro-B Natriuret Pep 259 pg/mL (0-125) H 04/26/22 17:48 Total Protein 6.1 g/dL (6.6-8.7) L 04/26/22 17:48 Albumin 4.0 g/dL (3.5-5.2) 04/26/22 17:48 Globulin 2.1 g/dL (1.3-4.6) 04/26/22 17:48 Coronavirus 229E (PCR) Not detected (NOT DETECT) 04/26/22 18:21 SARS-CoV-2 (PCR) Not detected (NOT DETECT) 04/26/22 18:21 Discharge Plan Discharge Patient Disposition: Home Clinical Impression: Bronchitis Condition: Stable Prescriptions: New albuterol sulfate 90 mcg/actuation HFA aerosol inhaler 2 inh inhalation Q4H PRN (Reason: shortness of breath or wheezing) Qty: 8.5 0RF No Action Farxiga 10 mg tablet 10 mg PO QAM montelukast 10 mg tablet 10 mg PO DAILY testosterone cypionate 200 mg/mL kit 200 mg IM .COMPLEX Rx Instructions: 200 mg IM one injection every two weeks; celecoxib [Celebrex] 200 mg capsule 200 mg PO DAILY tamsulosin [Flomax] 0.4 mg capsule 0.4 mg PO ONCE allopurinol 300 mg tablet 300 mg PO DAILY Novolin R Regular U-100 Insuln 100 unit/mL solution See Rx Instructions SUBCUT TID Rx Instructions: per sliding scale as needed TID SUBCUT three times daily; Zyrtec 10 mg capsule 10 mg PO DAILY Osteo Bi-Flex Triple Strength 750 mg-644 mg- 30 mg-1 mg tablet 1 tab PO BID zinc 50 mg tablet 50 mg PO DAILY vitamin A palmitate 10,000 unit capsule 10,000 unit PO DAILY Restasis 0.05 % dropperette 1 drop ophthalmic (eye) DAILY erythromycin 5 mg/gram (0.5 %) ointment 1 applic ophthalmic (eye) TID ferrous sulfate 325 mg (65 mg iron) tablet 325 mg PO .COMPLEX Rx Instructions: 325 mg PO at noon and bedtime; Refresh Tears 0.5 % drops 1 drop ophthalmic (eye) DAILY PRN (Reason: Dry Eyes) tobramycin-dexamethasone [TobraDex] 0.3-0.1 % drops,suspension 1 drop ophthalmic (eye) .COMPLEX Rx Instructions: 1 drp ophthalmic (eye) 1 gtt on , wed and wednesday; cholecalciferol (vitamin D3) 1,000 unit capsule 1,000 unit PO DAILY Tresiba FlexTouch U-200 200 unit/mL (3 mL) insulin pen See Rx Instructions SUBCUT DAILY Rx Instructions: 46 units in the am, 58 units in the pm SUBCUT daily; budesonide-formoterol [Symbicort] 160-4.5 mcg/actuation HFA aerosol inhaler 2 puff inhalation Q12H diclofenac sodium 1 % gel 4 g TOPICAL QID PRN (Reason: pain) 30 Days Qty: 300 1RF hydrocodone-acetaminophen 5-325 mg tablet 1 tab PO TID PRN (Reason: pain) 30 Days Qty: 90 0RF Rx Instructions: fill on or after 02/14/21 Nasal Decongestant (PE) 10 mg tablet 10 mg PO Q6H isosorbide mononitrate 60 mg tablet extended release 24 hr 120 mg PO BID telmisartan 80 mg tablet 80 mg PO DAILY furosemide 20 mg tablet 40 mg PO BID Rx Instructions: 40 mg am and 20 mg pm clonidine HCl 0.2 mg tablet 0.3 mg PO BID amitriptyline 75 mg tablet 50 mg PO .hs metoclopramide HCl [Reglan] 10 mg tablet 10 mg PO Q6H PRN hydrochlorothiazide 25 mg tablet PO spironolactone 25 mg tablet 50 mg PO DAILY Eliquis 5 mg tablet 5 mg PO BID Qty: 180 3RF nystatin 100,000 unit/gram powder 1 applic TOPICAL BID Qty: 60 3RF cyanocobalamin (vitamin B-12) 1,000 mcg/mL solution 1,000 mcg SUBCUT .COMPLEX Qty: 1 3RF Rx Instructions: 1,000 mcg SUBCUT every 5 weeks; fluticasone propionate 50 mcg/actuation spray,suspension 1 spray INTRANASAL BID Qty: 15.8 6RF metformin 1,000 mg tablet extended release 24hr 1,000 mg PO BID Qty: 60 5RF Hold Instructions: Resume on 06/13/20. atorvastatin 20 mg tablet 20 mg PO ONCE Qty: 30 11RF metoprolol tartrate 100 mg tablet 200 mg PO BID Qty: 90 0RF diltiazem HCl 120 mg capsule,extended release 12 hr 120 mg PO DIRECTED Rx Instructions: Take 2 BID Take 60mg HS Vitamin 1 tab PO DAILY esomeprazole magnesium 40 mg capsule,delayed release(DR/EC) 60 mg PO BID Discharge Orders: Discharge ED (Routine); Ordered 04/26/22 Ordered By: Kain Bartholomew Referrals: Bartolome Acharya, SMALL WIND ENERGY INSTALLER [Primary Care Provider] - Discharge Diet: Usual diet Discharge Activity: Increase activity as tolerated Patient Instructions: Acute Bronchitis (ED) Activity Restrictions/Additional Instructions: Thank you for visiting the emergency department. You were seen and evaluated for chest discomfort, palpitations, shortness of breath. The exact cause of your symptoms is unclear though may be related to atypical infection. I will prescribe steroids and antibiotics. Please also use your albuterol metered-dose inhaler 2 puffs every 4 hours for 24 hours followed by 2 puffs every 6 hours for 24 hours followed by 2 puffs every 8 hours for 24 hours and then return to the normal schedule. Follow-up with your primary care provider and cardiology. Return to the emergency department for worsening symptoms or anything else that you are concerned about and feel needs emergency department evaluation. Coding Level of Care Code ED Funeral Assistant for Jeronimo Enamorado
--- NOTE | 2022-04-26 17:02 | XRR_ITS ---
PROCEDURE INFORMATION: Exam: XR Chest Exam date and time: 04/26/2022 5:11 PM Age: 56 years old Clinical indication: Shortness of breath; Additional info: SOB, cp TECHNIQUE: Imaging protocol: Radiologic exam of the chest. Views: 1 view. COMPARISON: CT chest abd pel w con* 04/10/2022 10:09 PM FINDINGS: Lungs: Lungs are clear bilaterally. Pleural spaces: No pleural effusion. No pneumothorax. Heart/Mediastinum: Stable moderate enlargement of the cardiac silhouette. Mediastinal contours are unremarkable. Bones/joints: Unremarkable for age. XR/XR chest 1V portable [id number] IMPRESSION: 1. No acute cardiopulmonary process. 2. Incidental/nonacute findings are listed in the report.
--- NOTE | 2022-04-26 17:02 | ECG_ITS ---
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 Measurements Intervals [place] Rate: 78 P: 0 [place]: 0 QRS: -3 QRSD: 125 T: -3 QT: 368 QTc: 420 Interpretive Statements ATRIAL FLUTTER INDETERMINATE AXIS RIGHT BUNDLE BRANCH BLOCK POSSIBLE ANTERIOR MYOCARDIAL INFARCTION , OF INDETERMINATE AGE [30 ms Q WAVE IN V3/V4, OR R < 0.2 mV IN V4] Compared to ECG 04/11/2022 09:06:43 Right bundle-branch block now present Incomplete right bundle-branch block no longer present ST (T wave) deviation no longer present Myocardial infarct finding still present Electronically Signed On 04-27-2022 15:31:31 DIAMOND MOUNTER by Melba Singleton M.D. [id number]
[2022-04-26 17:58] LABS: Basophils # 0.1 10^3/uL (0.0-0.1); Basophils % 0.7 %; Eosinophils # 0.2 10^3/uL (0.0-0.8); Eosinophils % 2.1 %; Hematocrit 40.1 % (42.0-52.0); Lymphocytes # 1.3 10^3/uL (0.8-4.8); Mean Corpuscular HGB Conc 32.4 g/dL (30.0-36.0); Mean Corpuscular Hemoglobin 27.2 pg (28.0-34.0); Mean Corpuscular Volume 83.9 fl (80-94); Mean Platelet Volume 9.6 fL (7.4-10.4); Monocytes # 0.6 10^3/uL (0.2-0.9); Monocytes % 5.4 %; Neutrophils # 8.45 10^3/uL (1.8-7.7); Neutrophils % 78.9 %; Nucleated Red Blood Cells % 0 %; Platelet Count 284 10^3/cmm (130-400); Red Blood Count 4.78 10^6/uL (4.1-5.3); Red Cell Distribution Width 18.5 % (12.1-15.1); White Blood Count 10.7 10^3/uL (4.0-10.0)
[2022-04-26 18:32] LABS: Troponin(5th) Baseline 62 ng/L (0-15)
[2022-04-26 18:41] LABS: Alanine Aminotransferase 39 U/L (0-41); Alkaline Phosphatase 65 U/L (40-130); Anion Gap 14.8 (5-19); Aspartate Amino Transferase 22 U/L (0-40); Blood Urea Nitrogen 21 mg/dL (6-20); Calcium 9.7 mg/dL (8.5-10.5); Carbon Dioxide 22 mmol/L (22-29); Chloride 103 mmol/L (98-107); Globulin 2.1 g/dL (1.3-4.6); Glomerular Filtration Rate 52.1 mL/min (90-130); Glucose 179 mg/dL (65-115); NT Pro B Type Natriuretic Pept 259 pg/mL (0-125); Osmolality Calculated 287 mOsm/kg (285-295); Potassium 4.8 mmol/L (3.5-5.1); Sodium 135 mmol/L (136-145); Total Bilirubin 0.2 mg/dL (0.15-1.2); Total Protein 6.1 g/dL (6.6-8.7)
[2022-04-26 19:53] LABS: D Dimer <= 0.27 ug/mIFEU (0-0.59)
[2022-04-26 20:07] LABS: Adenovirus Not Detected (NOT DETECT); Chlamydia Pneumoniae Not Detected (NOT DETECT); Coronavirus 229E,HKU1,NL63,OC4 Not Detected (NOT DETECT); Human Metapneumovirus Not Detected (NOT DETECT); Human Rhinovirus/Enterovirus Not Detected (NOT DETECT); Influenza A Not Detected (NOT DETECT); Influenza A H1 Not Detected (NOT DETECT); Influenza A H1-2009 Not Detected (NOT DETECT); Influenza A H3 Not Detected (NOT DETECT); Influenza B Not Detected (NOT DETECT); Mycoplasma Pneumoniae Not Detected (NOT DETECT); Parainfluenza Virus Type 1 Not Detected (NOT DETECT); Parainfluenza Virus Type 2 Not Detected (NOT DETECT); Parainfluenza Virus Type 3 Not Detected (NOT DETECT); Parainfluenza Virus Type 4 Not Detected (NOT DETECT); Respiratory Syncytial Virus A Not Detected (NOT DETECT); Respiratory Syncytial Virus B Not Detected (NOT DETECT); SARS-COV-2 Not Detected (NOT DETECT)
--- NOTE | 2022-04-26 20:08 | ECG_ITS ---
[facility] Test Date: 2022-04-26 Pat Name: Marciano Alonso Department: Room: Gender: Male Strategic Marketing Specialist: : 1965 Requested By: Kain Bartholomew Order Number: [id number] Lima MD: Melba Singleton M.D. Measurements Intervals [place] Rate: 91 P: 0 SC: 0 QRS: -4 QRSD: 122 T: -11 QT: 351 QTc: 433 Interpretive Statements ATRIAL FLUTTER RIGHT BUNDLE BRANCH BLOCK [120+ ms QRS DURATION, UPRIGHT V1, 40+ ms S IN I/aVL/V4/V5/V6] Compared to ECG 04/26/2022 17:09:30 Indeterminate axis no longer present Myocardial infarct finding no longer present Electronically Signed On 04-27-2022 6:06:39 ENTRY LEVEL SOFTWARE DEVELOPER by Melba Signleton M.D. [id number]
[2022-04-26 20:13] LABS: Troponin 5 2HR 55.25 ng/L (0-15)
== END 2022-04-26 22:50 | disposition home or self-care (01) ==
PROVIDERS: Emergency Provider Emergency Medicine; PCP Nurse Practitioner
DX: J40 Bronchitis, not specified as acute or chronic (principal); Z20.822 Contact with and (suspected) exposure to COVID-19; Z79.01 Long term (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 of anticoagulants; Z79.4 Long term (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 of insulin; Z79.84 Long term (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 of oral hypoglycemic drugs; F17.220 Nicotine dependence, chewing tobacco, uncomplicated; Z89.612 Acquired absence of left leg above knee; E11.9 Type 2 diabetes mellitus without complications; I10 Essential (primary) hypertension
CPT/HCPCS: 36415; 71045; 80053; 83880; 84484; 85025; 85378; 87040; 87077; 87186; 87205; 87635; 93005; 99285

== ENCOUNTER → 2022-05-12 14:16 | Outpatient (BNVA) | payer MEDICARE, MEDICAID, SELFPAY | PROVIDERS: PCP Nurse Practitioner; Visit Provider Nurse Practitioner Family | DX: I48.92 Unspecified atrial flutter (principal); I10 Essential (primary) hypertension; I45.10 Unspecified right bundle-branch block; F17.220 Nicotine dependence, chewing tobacco, uncomplicated; Z79.01 Long term (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 of anticoagulants | CPT/HCPCS: 93005; 99214 ==

== ENCOUNTER → 2022-07-09 12:43 | Outpatient (BNVA) | payer MEDICARE, MEDICAID, SELFPAY | PROVIDERS: PCP Nurse Practitioner; Visit Provider Nurse Practitioner Family | DX: I48.92 Unspecified atrial flutter (principal); I10 Essential (primary) hypertension; F17.220 Nicotine dependence, chewing tobacco, uncomplicated; Z79.01 Long term (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 of anticoagulants | CPT/HCPCS: 93005; 99214 ==

== ENCOUNTER → 2022-08-03 14:28 | Outpatient (BNVA) | payer MEDICARE, MEDICAID, SELFPAY | PROVIDERS: PCP Nurse Practitioner; Visit Provider Nurse Practitioner Family | DX: I48.91 Unspecified atrial fibrillation (principal); Z79.01 Long term (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 of anticoagulants; F17.220 Nicotine dependence, chewing tobacco, uncomplicated | CPT/HCPCS: 93005; 99213 ==

== ENCOUNTER 2022-08-25 13:12 | Outpatient (CLI) | payer MEDICARE, MEDICAID, SELFPAY ==
--- NOTE | 2022-08-25 13:25 | CT_ITS ---
WS: [id number] CT NECK TECHNIQUE: Contrast-enhanced CT of the neck with coronal and sagittal reformatted images. CLINICAL INFORMATION: LOCALIZED SWELLING,MASS,LUMP, NECK COMPARISON: CT neck June 27, 2017 DLP: 609.[address] scans at [facility] use at least one of these dose optimization techniques: automated e xposure control; mA and/or kV adjustment per patient size (includes targeted exams where dose is matc hed to clinical indication); or iterative reconstruction. FINDINGS: Palpable marker RIGHT lower neck. Normal underlying subcutaneous soft tissues. No suspiciou s abnormalities deep to the area of palpable concern Previously described soft tissue inflammation about the LEFT sternoclavicular joint has improved comp ared to previous. Subluxation of the clavicular head with chronic appearing fracture deformity/disloc ation. Some of this may be due to chronic degenerative changes. Associated surrounding inflammatory c hanges and soft tissue thickening has improved compared to previous. No drainable fluid collection or abscess. Parotid glands are normal. Normal submandibular glands. Mastoid air cells well aerated. Normal special officer ior nasopharynx. No evidence of supraglottic or glottic mass. Straightening of the normal cervical lo rdosis. Moderate spondylitic changes cervical spine. CT/CT neck w con* [id number] IMPRESSION: 1. Prior healed fracture deformity involving the sternoclavicular joints with anterior subluxation of the distal clavicle. Associated increased bony callus f ormation or dystrophic calcification compared to previous. Soft tissue thickeni ng has improved. 2. No drainable fluid collection or abscess. 3. No suspicious abnormalities deep to the palpable marker in the RIGHT lower neck.
--- NOTE | 2022-08-25 13:29 | CT_ITS ---
WS: [id number] CT CHEST TECHNIQUE: Contrast enhanced CT of the chest with coronal and sagittal reformatted images. CLINICAL INFORMATION: DYSPNEA COMPARISON: April 10, 2022 DLP: 896.[address] scans at [facility] use at least one of these dose optimization techniques: automated e xposure control; mA and/or kV adjustment per patient size (includes targeted exams where dose is matc hed to clinical indication); or iterative reconstruction. FINDINGS: Normal caliber thoracic aorta. No mediastinal or hilar lymphadenopathy. Small calcified RIGHT thyroid nodule measuring 7 mm. Coronary calcification. Normal GE junction. Small bilateral adrenal adenomas. Hepatomegaly. Mild diffuse fatty infiltration liver. Mild gallbladder wall thickening partially visu alized. This can be further evaluated with ultrasound. Hypertrophic changes thoracic spine. Mild chronic elevation LEFT hemidiaphragm. LEFT basilar atelecta sis. Cardiomegaly. No acute pulmonary infiltrates. No focal pneumonia or pleural fluid. Chronic RIGHT rib fractures with callus formation. No other suspicious findings or changes from previous. CT/CT chest w con* [id number] IMPRESSION: 1. No acute pulmonary infiltrates. Slight LEFT basilar atelectasis. 2. No focal pneumonia or pleural fluid. 3. Cardiomegaly. 4. Hepatomegaly with diffuse fatty infiltration liver. 5. Chronic RIGHT rib fractures. 6. Gallbladder wall thickening partially visualized. This can be further evalu ated ultrasound. 7. No other significant changes compared to previous.
[2022-08-25] MEDS: iohexol 350 mg/mL 500 mL Btl (per mL) IV ×2 (13:54→13:55)
== END 2022-08-25 13:13 | disposition home or self-care (01) ==
LOC: RAD 13:15
PROVIDERS: PCP Nurse Practitioner; Visit Provider Nurse Practitioner
DX: R22.1 Localized swelling, mass and lump, neck (principal); R06.00 Dyspnea, unspecified
CPT/HCPCS: 70491; 71260; Q9967

== ENCOUNTER → 2022-10-16 10:57 | Outpatient (BNVA) | payer MEDICARE, MEDICAID, SELFPAY | PROVIDERS: PCP Nurse Practitioner; Visit Provider Internal Medicine | DX: R07.9 Chest pain, unspecified (principal); R06.02 Shortness of breath; G47.30 Sleep apnea, unspecified; I10 Essential (primary) hypertension; E11.9 Type 2 diabetes mellitus without complications; F17.220 Nicotine dependence, chewing tobacco, uncomplicated; Z79.4 Long term (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 of insulin | CPT/HCPCS: 99214 ==

== ENCOUNTER → 2023-04-05 10:53 | Outpatient (BNVA) | payer MEDICARE, MEDICAID, SELFPAY | PROVIDERS: PCP Nurse Practitioner; Visit Provider Nurse Practitioner Family | DX: L02.222 Furuncle of back [any part, except buttock and flank] (principal); L89.899 Pressure ulcer of other site, unspecified stage; L73.2 Hidradenitis suppurativa; D22.39 Melanocytic nevi of other parts of face | CPT/HCPCS: 99204 ==

== ENCOUNTER 2023-04-22 15:27 | Outpatient (CLI) | payer MEDICARE, MEDICAID, SELFPAY ==
[2023-04-22 18:48] LABS: Blood Urine 3+ (Negative); Glucose Urine UA 4+ (Normal); Ketones Urine Negative (Negative); Protein Urine 1+ (Negative); Urine Appearance Hazy (CLEAR); Urine Color Yellow (Yellow); pH Urine 5 (5-7)
[2023-04-22 18:49] LABS: Add Urine Microscopic? YES; Bilirubin Urine Neg (Negative); Leukocyte Esterase Urine 2+ (Negative); Nitrate Urine Positive (Negative); Urobilinogen Urine Norm (Negative)
[2023-04-22 18:51] LABS: Add Urine Culture? Yes; Bacteria Urine 3+ /hpf; Mucus Urine TRACE /hpf; RBC Urine 40-50 /hpf (0-2); Squamous Epithelial Cell Urine RARE /hpf (0-5); WBC Urine 40-55 /hpf (0-5)
== END 2023-04-22 15:28 | disposition home or self-care (01) ==
LOC: LAB 15:31
PROVIDERS: PCP Nurse Practitioner; Visit Provider Nurse Practitioner
DX: Z01.89 Encounter for other specified special examinations (principal)
CPT/HCPCS: 81001; 87077; 87086; 87186

== ENCOUNTER → 2023-06-22 08:57 | Outpatient (BNVA) | payer MEDICARE, MEDICAID, SELFPAY | PROVIDERS: PCP Nurse Practitioner; Visit Provider Nurse Practitioner Family | DX: I10 Essential (primary) hypertension (principal); I48.20 Chronic atrial fibrillation, unspecified; F17.220 Nicotine dependence, chewing tobacco, uncomplicated; Z79.01 Long term (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 of anticoagulants | CPT/HCPCS: 99214 ==

== ENCOUNTER 2023-10-12 19:20 | Emergency (ER) | payer MEDICARE, MEDICAID, SELFPAY ==
[2023-10-12 19:21] VITALS: BP 147/98; PULSE 101; RESP 18; TEMP 37.2; O2SAT 93; BMI 64.4
--- NOTE | 2023-10-12 19:39 | XRR_ITS ---
PROCEDURE INFORMATION: Exam: XR Right Knee Exam date and time: 10/12/2023 7:53 PM Age: 58 years old Clinical indication: Pain; Knee; Right TECHNIQUE: Imaging protocol: Radiologic exam of the right knee. Views: 3 views. COMPARISON: MR knee RT wo con* [id number] 11/10/2016 7:37 AM FINDINGS: Bones/joints: Normal. Soft tissues: Normal. Vasculature: Vascular calcifications. XR/XR knee RT 3V* [id number] IMPRESSION: No acute findings.
--- NOTE | 2023-10-12 19:45 | ED_ITS ---
Documented by User: VIVIANE Romero 10/12/23 22:09 HPI - Extremity Problem General: Chief complaint: Extremity Problem,Nontraumatic Stated complaint: LEG PAIN Time Seen by Provider: 10/12/23 19:23 Source: patient Mode of arrival: EMS Limitations: no limitations History of Present Illness: Patient is a 58-year-old male who presents to the emergency department via EMS complaining of right knee pain onset today. Patient states he felt a pop in his knee, stating it gave out. Patient is not ambulatory as he has a left leg amputation. He denies any trauma or other possible injuries. He does state that the pain is radiating distally down his leg. No distal neurovascular deficits reported such as no numbness, weakness, or tingling. MD Complaint: joint pain Onset (ago): hour(s) Pain Consistency: constant Location: right Radiation: distal Associated symptoms: Deny chest pain, fever(s) or rash Review of Systems General: Reports: 10 or more systems reviewed and unremarkable except in HPI and below Const: Denies: fever(s), chills or fatigue Eyes: Denies: change in vision ENMT: Denies: throat pain, ear or mastoid pain or nasal discharge Card: Denies: chest pain, palpitations, swelling of feet/ankles or lightheadedness Resp: Denies: dyspnea, productive cough or wheezing GI: Denies: abdominal pain, nausea, vomiting, diarrhea or constipation : Denies: flank pain, difficulty urinating, dysuria or urinary frequency Musc: Reports: joint pain (Right knee); Denies: neck pain or back pain Skin/Breast: Denies: rash Neuro: Denies: headache(s), numbness in extremities or weakness in extremities PFSH ED PFSH: Medical History Morbid obesity Atrial flutter Encounter for screening colonoscopy Repeat screening colonoscopy in 10 years unless otherwise specified Chronic low back pain Chronic right shoulder pain Diabetes mellitus Shoulder pain BILATERAL Encounter for long-term use of opiate analgesic Right knee pain Amputation above knee Left Diabetes type 2, controlled Essential hypertension Dysuria-frequency syndrome Seizure BPH (benign prostatic hyperplasia) Primary osteoarthritis of both knees r knee Sleep apnea Surgical History History of left above knee amputation History of shoulder surgery 2001 x 2 L shoulder Family History Other Heart disease Hypertension Social History Smoking and tobacco/nicotine status: current every day tobacco/nicotine user (chew) smokeless tobacco Smokeless tobacco user: chewing tobacco Smokeless tobacco details: 2 cans a day Second hand smoke exposure: No Alcohol intake: never Substance/Drug Use: never Physical Exam Const: COMMON NORMALS: no acute distress, patient oriented x3, no limitations and alert GENERAL APPEARANCE: cooperative and disheveled NUTRITIONAL APPEARANCE: obese morbidly obese HENMT: COMMON NORMALS: normocephalic and atraumatic HEAD & SCALP: normocephalic and atraumatic Eye: COMMON NORMALS: EOMs intact bilaterally and conjunctivae normal CONJUNCTIVA: Yes conjunctivae normal Neck/C-Spine: COMMON NORMALS: full ROM Resp: COMMON NORMALS: normal respiratory effort, No use of accessory muscles and clear to auscultation bilaterally AUSCULTATION: clear to auscultation bilaterally Cardio: COMMON NORMALS: regular rate, regular rhythm, No gallops present (Cardio), No murmurs present (Cardio) and No rub (Cardio) RATE: regular rate RHYTHM: regular rhythm GI: INSPECTION: Yes central obesity Extremity: NARRATIVE EXTREMITY EXAM: Left AKA. Right knee appears normal with no edema or erythema. No distal neurovascular deficits on the right side noted. DP/PT pulse 2+. No calf pain. Tender to palpation over the anterior right knee joint. Neuro: COMMON NORMALS: patient oriented x3, no focal motor deficits and no sensory deficits noted SENSORIUM/ORIENTATION: Yes alert Psych: COMMON NORMALS: mental status grossly normal Skin: COMMON NORMALS: no rashes or lesions noted GENERAL SKIN EXAM: no rashes or lesions noted Course Vital Signs: Vital signs: Vital Signs Temperature 98.9 F 10/12/23 22:22 Pulse Rate 101 H 10/12/23 22:22 Respiratory Rate 18 10/12/23 22:22 Blood Pressure 147/98 10/12/23 22:22 Pulse Oximetry 93 10/12/23 22:22 Oxygen Delivery Me thod Room Air 10/12/23 19:21 MDM - Extremity (Nontraumatic) Medical Decision Making Patient brought in by ambulance for right knee pain. There was no traumatic event reported and on examination there is no signs of trauma. He is a morbidly obese male with a left AKA. Vitals unremarkable on arrival. No joint laxity or appreciable joint effusion on exam. X-ray did not demonstrate any acute findings. Patient does have hydrocodone at home that he takes normally for pain, he will continue taking this. No other labs or testing necessary at this point, as patient likely is dealing with a knee contusion versus sprain. Reasons to return discussed. Patient will be discharged home. Lab Data Radiology Impressions Knee X-Ray 10/12/23 19:39 IMPRESSION: No acute findings. All radiology interpretation(s) finalized by discharge Discharge Plan Discharge Patient Disposition: Home Clinical Impression: Acute pain of right knee Condition: Stable Prescriptions: No Action montelukast 10 mg tablet 10 mg PO DAILY testosterone cypionate 200 mg/mL kit 200 mg IM .COMPLEX Rx Instructions: 200 mg IM one injection every two weeks; celecoxib [Celebrex] 200 mg capsule 200 mg PO DAILY tamsulosin [Flomax] 0.4 mg capsule 0.4 mg PO ONCE allopurinol 300 mg tablet 300 mg PO DAILY Novolin R Regular U100 Insulin 100 unit/mL solution See Rx Instructions SUBCUT TID Rx Instructions: per sliding scale as needed TID SUBCUT three times daily; Restasis 0.05 % dropperette 1 drop ophthalmic (eye) DAILY erythromycin 5 mg/gram (0.5 %) ointment 1 applic ophthalmic (eye) TID ferrous sulfate 325 mg (65 mg iron) tablet 325 mg PO .COMPLEX Rx Instructions: 325 mg PO at noon and bedtime; Refresh Tears 0.5 % drops 1 drop ophthalmic (eye) DAILY PRN (Reason: Dry Eyes) cholecalciferol (vitamin D3) 1,000 unit capsule 1,000 unit PO DAILY Tresiba FlexTouch U-200 200 unit/mL (3 mL) insulin pen See Rx Instructions SUBCUT DAILY Rx Instructions: 100 units in the am, 120 units in the pm SUBCUT daily; hydrocodone-acetaminophen 5-325 mg tablet 1 tab PO TID PRN (Reason: pain) 30 Days Qty: 90 0RF Rx Instructions: fill on or after 02/14/21 telmisartan 80 mg tablet 80 mg PO DAILY clonidine HCl 0.2 mg tablet 0.3 mg PO BID furosemide 20 mg tablet 40 mg PO DAILY pantoprazole 40 mg tablet,delayed release (DR/EC) 40 mg PO BID latanoprost 0.005 % drops 1 drp ophthalmic (eye) DAILY amitriptyline 75 mg tablet 50 mg PO .hs metoclopramide HCl [Reglan] 10 mg tablet 10 mg PO Q6H PRN triamcinolone acetonide 0.5 % cream 1 applic topical BID Niva-Plus 27 mg iron- 1 mg tablet PO Breztri Aerosphere 160-9-4.8 mcg/actuation HFA aerosol inhaler 2 inh inhalation BID ipratropium-albuterol 0.5 mg-3 mg(2.5 mg base)/3 mL solution for nebulization 3 ml inhalation QID PRN Atrovent HFA 17 mcg/actuation HFA aerosol inhaler 2 puff inhalation QID levocetirizine 5 mg tablet 5 mg PO DAILY pregabalin [Lyrica] 25 mg capsule 25 mg PO TID tizanidine 4 mg capsule 4 mg PO Q8H PRN Trelegy Ellipta 200-62.5-25 mcg blister with device 1 inh inhalation DAILY diltiazem HCl 120 mg capsule,extended release 12 hr 120 mg PO BID Gemtesa 75 mg tablet 75 mg PO DAILY Myrbetriq 50 mg tablet extended release 24 hr 50 mg PO DAILY potassium chloride 10 mEq tablet extended release 10 meq PO DAILY cyanocobalamin (vitamin B-12) 1,000 mcg/mL solution 1,000 mcg SUBCUT .COMPLEX Rx Instructions: 1,000 mcg SUBCUT every 4 weeks; lidocaine 5 % adhesive patch,medicated 1 patch topical DAILY Rx Instructions: leave on most painful area for up to 12 hrs metoprolol tartrate 100 mg tablet 150 mg PO BID nystatin 100,000 unit/gram powder 1 applic TOPICAL BID Qty: 60 3RF fluticasone propionate 50 mcg/actuation spray,suspension 1 spray INTRANASAL BID Qty: 15.8 6RF metformin 1,000 mg tablet extended release 24hr 1,000 mg PO BID Qty: 60 5RF Hold Instructions: Resume on 06/13/20. atorvastatin 20 mg tablet 20 mg PO ONCE Qty: 30 11RF diltiazem HCl 120 mg capsule,extended release 24hr 240 mg PO DIRECTED Rx Instructions: 08/04/22 Take 240mg morning and noon Take 60 HS spironolactone 25 mg tablet 12.5 mg PO DAILY Eliquis 5 mg tablet 5 mg PO BID Qty: 180 3RF amiodarone 200 mg tablet 200 mg PO DAILY Qty: 90 3RF hydralazine 25 mg tablet 25 mg PO TID Qty: 180 0RF Vitamin 1 tab PO DAILY Discharge Orders: Discharge ED (Routine); Ordered 10/12/23 Ordered By: Celso Cabral Referrals: Bartolome Acharya FNP [Primary Care Provider] - Discharge Diet: Usual diet Discharge Activity: Increase activity as tolerated Patient Instructions: Knee Pain (ED) Activity Restrictions/Additional Instructions: Pain medications at home that you already have. Gentle range of motion exercises as tolerated. Follow-up with primary care and return with any new or worsening. Coding Level of Care Code ED Dry Cell Tester for Chg Fwd Documented by User: Trell Negron DO 10/20/23 21:21 HPI - Extremity Problem General: Chief complaint: Extremity Problem,Nontraumatic Stated complaint: LEG PAIN Time Seen by Provider: 10/12/23 19:23 PFSH ED PFSH: Medical History Morbid obesity Atrial flutter Encounter for screening colonoscopy Repeat screening colonoscopy in 10 years unless otherwise specified Chronic low back pain Chronic right shoulder pain Diabetes mellitus Shoulder pain BILATERAL Encounter for long-term use of opiate analgesic Right knee pain Amputation above knee Left Diabetes type 2, controlled Essential hypertension Dysuria-frequency syndrome Seizure BPH (benign prostatic hyperplasia) Primary osteoarthritis of both knees r knee Sleep apnea Surgical History History of left above knee amputation History of shoulder surgery 2001 x 2 L shoulder Family History Other Heart disease Hypertension Social History (Reviewed 06/11/24 @ 19:48 by JAZZMINE Romero Smoking and tobacco/nicotine status: current every day tobacco/nicotine user (chew) smokeless tobacco Smokeless tobacco user: chewing tobacco Smokeless tobacco details: 2 cans a day Second hand smoke exposure: No Alcohol intake: never Substance/Drug Use: never Course Vital Signs: Vital signs: Vital Signs Temperature 98.9 F 10/12/23 22:22 Pulse Rate 101 H 10/12/23 22:22 Respiratory Rate 18 10/12/23 22:22 Blood Pressure 147/98 10/12/23 22:22 Pulse Oximetry 93 10/12/23 22:22 Oxygen Delivery Me thod Room Air 10/12/23 19:21 MDM - Extremity (Nontraumatic) Medical Decision Making Patient brought in by ambulance for right knee pain. There was no traumatic event reported and on examination there is no signs of trauma. He is a morbidly obese male with a left AKA. Vitals unremarkable on arrival. No joint laxity or appreciable joint effusion on exam. X-ray did not demonstrate any acute findings. Patient does have hydrocodone at home that he takes normally for pain, he will continue taking this. No other labs or testing necessary at this point, as patient likely is dealing with a knee contusion versus sprain. R easons to return discussed. Patient will be discharged home. Chart reviewed Lab Data Radiology Impressions Knee X-Ray 10/12/23 19:39 IMPRESSION: No acute findings. Discharge Plan Discharge Patient Disposition: Home Clinical Impression: Acute pain of right knee Condition: Stable Prescriptions: No Action montelukast 10 mg tablet 10 mg PO DAILY testosterone cypionate 200 mg/mL kit 200 mg IM .COMPLEX Rx Instructions: 200 mg IM one injection every two weeks; celecoxib [Celebrex] 200 mg capsule 200 mg PO DAILY tamsulosin [Flomax] 0.4 mg capsule 0.4 mg PO ONCE allopurinol 300 mg tablet 300 mg PO DAILY Novolin R Regular U100 Insulin 100 unit/mL solution See Rx Instructions SUBCUT TID Rx Instructions: per sliding scale as needed TID SUBCUT three times daily; Restasis 0.05 % dropperette 1 drop ophthalmic (eye) DAILY erythromycin 5 mg/gram (0.5 %) ointment 1 applic ophthalmic (eye) TID ferrous sulfate 325 mg (65 mg iron) tablet 325 mg PO .COMPLEX Rx Instructions: 325 mg PO at noon and bedtime; Refresh Tears 0.5 % drops 1 drop ophthalmic (eye) DAILY PRN (Reason: Dry Eyes) cholecalciferol (vitamin D3) 1,000 unit capsule 1,000 unit PO DAILY Tresiba FlexTouch U-200 200 unit/mL (3 mL) insulin pen See Rx Instructions SUBCUT DAILY Rx Instructions: 100 units in the am, 120 units in the pm SUBCUT daily; hydrocodone-acetaminophen 5-325 mg tablet 1 tab PO TID PRN (Reason: pain) 30 Days Qty: 90 0RF Rx Instructions: fill on or after 02/14/21 telmisartan 80 mg tablet 80 mg PO DAILY clonidine HCl 0.2 mg tablet 0.3 mg PO BID furosemide 20 mg tablet 40 mg PO DAILY pantoprazole 40 mg tablet,delayed release (DR/EC) 40 mg PO BID latanoprost 0.005 % drops 1 drp ophthalmic (eye) DAILY amitriptyline 75 mg tablet 50 mg PO .hs metoclopramide HCl [Reglan] 10 mg tablet 10 mg PO Q6H PRN triamcinolone acetonide 0.5 % cream 1 applic topical BID Niva-Plus 27 mg iron- 1 mg tablet PO Breztri Aerosphere 160-9-4.8 mcg/actuation HFA aerosol inhaler 2 inh inhalation BID ipratropium-albuterol 0.5 mg-3 mg(2.5 mg base)/3 mL solution for nebulization 3 ml inhalation QID PRN Atrovent HFA 17 mcg/actuation HFA aerosol inhaler 2 puff inhalation QID levocetirizine 5 mg tablet 5 mg PO DAILY pregabalin [Lyrica] 25 mg capsule 25 mg PO TID tizanidine 4 mg capsule 4 mg PO Q8H PRN Trelegy Ellipta 200-62.5-25 mcg blister with device 1 inh inhalation DAILY diltiazem HCl 120 mg capsule,extended release 12 hr 120 mg PO BID Gemtesa 75 mg tablet 75 mg PO DAILY Myrbetriq 50 mg tablet extended release 24 hr 50 mg PO DAILY potassium chloride 10 mEq tablet extended release 10 meq PO DAILY cyanocobalamin (vitamin B-12) 1,000 mcg/mL solution 1,000 mcg SUBCUT .COMPLEX Rx Instructions: 1,000 mcg SUBCUT every 4 weeks; lidocaine 5 % adhesive patch,medicated 1 patch topical DAILY Rx Instructions: leave on most painful area for up to 12 hrs metoprolol tartrate 100 mg tablet 150 mg PO BID nystatin 100,000 unit/gram powder 1 applic TOPICAL BID Qty: 60 3RF fluticasone propionate 50 mcg/actuation spray,suspension 1 spray INTRANASAL BID Qty: 15.8 6RF metformin 1,000 mg tablet extended release 24hr 1,000 mg PO BID Qty: 60 5RF Hold Instructions: Resume on 06/13/20. atorvastatin 20 mg tablet 20 mg PO ONCE Qty: 30 11RF diltiazem HCl 120 mg capsule,extended release 24hr 240 mg PO DIRECTED Rx Instructions: 08/04/22 Take 240mg morning and noon Take 60 HS spironolactone 25 mg tablet 12.5 mg PO DAILY Eliquis 5 mg tablet 5 mg PO BID Qty: 180 3RF amiodarone 200 mg tablet 200 mg PO DAILY Qty: 90 3RF hydralazine 25 mg tablet 25 mg PO TID Qty: 180 0RF Vitamin 1 tab PO DAILY Discharge Orders: Discharge ED (Routine); Ordered 10/12/23 Ordered By: Celso Cabral Referrals: Bartolome Acharya, BUILDING [employer]CH [Primary Care Provider] - Discharge Diet: Usual diet Discharge Activity: Increase activity as tolerated Patient Instructions: Knee Pain (ED) Activity Restrictions/Additional Instructions: Pain medications at home that you already have. Gentle range of motion exercises as tolerated. Follow-up with primary care and return with any new or worsening. Coding Level of Care Code ED Dry Cell Tester for Jeronimo Enamorado
[2023-10-12 22:22] VITALS: BP 147/98; PULSE 101; RESP 18; TEMP 37.2; O2SAT 93
== END 2023-10-12 22:24 | disposition home or self-care (01) ==
PROVIDERS: Emergency Provider Physician Assistant; PCP Nurse Practitioner
DX: M25.561 Pain in right knee (principal); Z79.01 Long term (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 of anticoagulants; Z79.4 Long term (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 of insulin; Z79.84 Long term (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 of oral hypoglycemic drugs; F17.220 Nicotine dependence, chewing tobacco, uncomplicated; E11.9 Type 2 diabetes mellitus without complications; I10 Essential (primary) hypertension; Z89.612 Acquired absence of left leg above knee
CPT/HCPCS: 73562; 99283

== ENCOUNTER → 2023-12-28 15:30 | Outpatient (BNVA) | payer MEDICARE, MEDICAID, SELFPAY | PROVIDERS: PCP Nurse Practitioner; Visit Provider Internal Medicine | DX: R07.9 Chest pain, unspecified (principal); R06.02 Shortness of breath; G47.30 Sleep apnea, unspecified; I10 Essential (primary) hypertension; E11.9 Type 2 diabetes mellitus without complications; I48.20 Chronic atrial fibrillation, unspecified; F17.220 Nicotine dependence, chewing tobacco, uncomplicated; Z79.4 Long term (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 of insulin; Z79.01 Long term (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 of anticoagulants | CPT/HCPCS: 99214 ==

== ENCOUNTER 2024-11-15 07:01 | Outpatient (CLI) | payer MEDICARE, MEDICAID, SELFPAY ==
--- NOTE | 2024-11-15 07:17 | MR_ITS ---
WS: [id number] MRI RIGHT SHOULDER, with and without contrast. HISTORY: pain COMPARISON: 09/14/2011 TECHNIQUE: Multiplanar sequences of the shoulder joint are submitted. Postcontrast imaging MultiHance 20 mL IV. Significant progression of degenerative changes involving the RIGHT shoulder since the prior study from 2011. AC joint widening with fluid extending through the AC joint. Mild hypertrophic osteophytosis involving the distal clavicle. Small amount of fluid in the subacromial bursa. Small caliber biceps tendon is present in the bicipital groove with fluid along the tendon sheath. Abnormal signal within the biceps tendon from tendinopathy and tears. High riding humeral head nearly abuts the undersurface of the AC joint. There is marked widening with fluid in the glenohumeral joint. Severe atrophy with a small amount of edema involving the supraspinatus and infraspinatus muscles. There is additional moderate subscapularis muscle atrophy. Teres minor is well preserved. Complete full-thickness tear of the supraspinatus tendon with retraction to the medial humeral head. Complete tears with retraction also of the infraspinatus and subscapularis tendons medial to the humeral head. Osteophytic ridging of the glenoid and the humeral head. Quality this examination is compromised by artifact. The labrum is difficult to evaluate in its entirety but there is a tear involving the superior labrum. On the postcontrast images there is peripheral enhancement within the joint effusion extending through the AC joint. Suspect synovitis. Less likely abscess. No marrow edema or abnormal enhancement. MR/MR shoulder RT wo/w con [id number] IMPRESSION: 1. Quality is compromised by motion artifact. 2. Significant progression of degenerative changes since 2011 involving the RI GHT shoulder. 3. Complete tendon tears involving the supraspinatus, infraspinatus and subsca pularis tendons with muscle atrophy. 4. 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 5. Abnormal biceps tendon in the bicipital groove. Small caliber tendon with v ariable signal. Tears and tendinopathy likely. 6. Peripheral enhancement of the joint effusion and the fluid extending to the AC joint probably related to synovitis. Septic joint is not excluded. 7. No marrow enhancement. 8. High riding humeral head with widening of the glenohumeral joint and advanc ed degenerative changes with loss of cartilage and osteophytic ridging.
[2024-11-15] MEDS: gadobenate dimeglumine 20 mL vial IV (08:02)
== END 2024-11-15 07:02 | disposition home or self-care (01) ==
LOC: RAD 07:02
PROVIDERS: PCP Nurse Practitioner; Visit Provider Internal Medicine
DX: M75.121 Complete rotator cuff tear or rupture of right shoulder, not specified as traumatic (principal); M19.011 Primary osteoarthritis, right shoulder
CPT/HCPCS: 73223

== ENCOUNTER 2024-11-22 08:14 | Outpatient (CLI) | payer MEDICARE, MEDICAID, SELFPAY ==
--- NOTE | 2024-11-22 08:32 | US_ITS ---
WS: [id number] Complete ABDOMINAL ULTRASOUND HISTORY: RIGHT UPPER ABDOMINAL PAIN COMPARISON: None available. Liver: 22.2 cm in length. Markedly enlarged liver. Mild diffuse coarse echotexture. No mass. No intrahepatic dilatation. Portal Vein: Normal hepatopetal flow with monophasic waveform. Gallbladder: Normally distended gallbladder with no stones or wall thickening. CBD: 0.5 cm Pancreas: Completely obscured. Right kidney: 9.5 cm x 6.0 x 5.5 cm. Cortex:1.3 cm. Normal size and echogenicity. No hydronephrosis or mass. Left kidney: 10.4 cm x 5.6 cm x 6.2 cm. Cortex: 1.1 cm. Normal size and echogenicity. No hydronephrosis or mass. Spleen: 22.6 cm. Markedly enlarged spleen. No splenic lesions. Spleen measures 14.[address] a prior CT from 04/10/2022. Aorta and IVC: Limited. US/US abdomen complete* [id number] Impression: 1. Study is compromised by patient's body habitus. 2. Gallbladder is negative. 3. Marked hepatosplenomegaly. Spleen has increased from 14.4 cm on 04/10/2000 2 2 to 22.6 cm. Recommend further evaluation concerning because of the splenomega ly and hepatomegaly. 4. No renal obstruction or enlargement.
== END 2024-11-22 08:15 | disposition home or self-care (01) ==
LOC: RAD 08:16
PROVIDERS: PCP Nurse Practitioner; Visit Provider Internal Medicine
DX: R16.2 Hepatomegaly with splenomegaly, not elsewhere classified (principal)
CPT/HCPCS: 76700

== ENCOUNTER 2024-11-28 11:02 | Oncology outpatient (recurring) (ONCR) | payer MEDICARE, MEDICAID, SELFPAY ==
[2024-11-07 09:44] LABS: Hematocrit 35.3 % (37-53); Hemoglobin 11.50 g/dL (11.27-16.99); Mean Corpuscular HGB Conc 32.6 g/dL (30-55); Mean Corpuscular Hemoglobin 27.4 pg (27-33); Mean Corpuscular Volume 84.2 fl (82-101); Nucleated Red Blood Cells % 0 %; Platelet Count 106 10^3/cmm (157-399); Red Blood Count 4.19 10^6/uL (3.85-5.65); White Blood Count 3.23 10^3/uL (3.29-11.43)
[2024-11-07 10:22] LABS: Alanine Aminotransferase 40 U/L (0-41); Albumin Level 3.1 g/dL (3.5-5.2); Alkaline Phosphatase 116 U/L (40-130); Anion Gap 17.3 (5-19); Aspartate Amino Transferase 71 U/L (0-40); Blood Urea Nitrogen 14 mg/dL (8-23); Calcium 9.4 mg/dL (8.5-10.5); Carbon Dioxide 19 mmol/L (22-29); Chloride 100 mmol/L (98-107); Creatinine Clr Calc Pharmacy 135.5261; Ferritin 93 ng/mL (30-400); Globulin 3.1 g/dL (1.3-4.6); Glucose 374 mg/dL (65-115); Iron 81 ug/dL (59-158); Osmolality Calculated 290 mOsm/kg (285-295); Potassium 4.3 mmol/L (3.5-5.1); Sodium 132 mmol/L (136-145); Thyroid Stimulating Hormone 2.07 uIU/mL (0.27-4.20); Total Iron Binding Capacity 320 mcg/dl; Total Protein 6.2 g/dL (6.6-8.7); Unsaturated Iron Binding 239 ug/dL (112-347); Vitamin B12 986 pg/mL (232-1245)
[2024-11-08 06:15] LABS: PROTEIN, TOTAL 5.9 g/dL (6.1-8.1)
[2024-11-09 09:15] LABS: ALPHA 1 GLOBULIN 0.3 g/dL (0.2-0.3); ALPHA 2 GLOBULIN 0.7 g/dL (0.5-0.9); BETA 1 GLOBULIN 0.5 g/dL (0.4-0.6); BETA 2 GLOBULIN 0.6 g/dL (0.2-0.5)
== END 2024-11-30 23:59 | disposition home or self-care (01) ==
PROVIDERS: PCP Nurse Practitioner; Visit Provider Internal Medicine Medical Oncology
DX: D61.818 Other pancytopenia (principal)
CPT/HCPCS: 36415; 80053; 82607; 82728; 82746; 83540; 83550; 84155; 84165; 84443; 85025; 99205; 99213

== ENCOUNTER → 2024-12-11 15:50 | Outpatient (BNVA) | payer MEDICARE, MEDICAID, SELFPAY | PROVIDERS: PCP Nurse Practitioner; Visit Provider Internal Medicine | DX: R07.89 Other chest pain (principal); R06.02 Shortness of breath; G47.30 Sleep apnea, unspecified; I10 Essential (primary) hypertension; E11.9 Type 2 diabetes mellitus without complications; Z79.85 Long-term (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 of injectable non-insulin antidiabetic drugs; I48.91 Unspecified atrial fibrillation; Z79.01 Long term (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 of anticoagulants; F17.220 Nicotine dependence, chewing tobacco, uncomplicated; R07.9 Chest pain, unspecified | CPT/HCPCS: 99214 ==

== ENCOUNTER → 2024-12-12 10:25 | Outpatient (BNVA) | payer MEDICARE, MEDICAID, SELFPAY | PROVIDERS: PCP Internal Medicine; Visit Provider Orthopaedic Surgery | DX: M75.101 Unspecified rotator cuff tear or rupture of right shoulder, not specified as traumatic (principal); M12.811 Other specific arthropathies, not elsewhere classified, right shoulder | CPT/HCPCS: 99204 ==

== ENCOUNTER 2024-12-18 09:31 | Outpatient (CLI) | payer MEDICARE, MEDICAID, SELFPAY ==
[2024-12-18 09:49] VITALS: BMI 38.6
--- NOTE | 2024-12-18 09:50 | NMCV_ITS ---
NM harshil perf SPECT r/s* [id number] Marciano Alonso Age: 59 Gender: M : 1965 Exam Date: 12/18/2024 10:42 Ordering Phys: González Sanabria M.D ([email or web address]) Technologist: NAE Reyna Exam Location: [facility] Indications: cp STRESS TEST [facility] IMAGE PROTOCOL Rest/Stress 1 Lexiscan Day Radiopharmaceutical Dose (mCi) Administration Site Administered by Rest: Tc-99m 10.8 IV Lynn Alba, PICKLE SORTER Sestamibi Stress:Tc-99m 32.8 IV Lynn Cardenasgle, PICKLE SORTER Sestamibi Rest: 18-Dec-2024 60 Discovery 630 Stress: 18-Dec-2024 30 Discovery 630 0.4mg Lexiscan. Supine position only as patient was unable to lay prone. If patient was not an amputee he would of been over table weight limit. Upper body severely obese. Time per stop was increased. Imaging was repeated. SPECT RESULTS Technical Quality: Poor Raw Data Analysis: Soft tissue attenuation Image Corrections: No attenuation or motion correction applied Summed Stress Score: 1 Summed Rest Score: 16 Summed Difference Score: 0 PERFUSION FINDINGS Small area of exposed fat and fat noted in apex and apical inferior wall of the left apical suggestive of old myocardial infarction versus artifact of apical thinning. Medium sized area of patchy decreased tracer uptake noted in basal to mid inferior wall in the absence of wall motion abnormality can be present artifact. FUNCTIONAL RESULTS (calculated via Gated SPECT) Stress Image LV EF (%): 45 Stress EDV (mL):128 TID: 0.93 Stress ESV (mL):70 FUNCTIONAL FINDINGS: Global hypokinesis. Moderately depressed left ventricle ejection fraction 45% IMPRESSIONS Small area of old myocardial infarction versus artifact noted in apical inferior wall of left ventricle. Medium sized area of old myocardial infarction versus artifact noted in basal to mid inferior wall without casey- infarct ischemia. This study is negative for ischemia Ralph Persaud MD (Electronically Signed) Final Date: 18 December 2024 19:42 S
--- NOTE | 2024-12-18 09:50 | ECG_ITS ---
[employer] Test Date: 2024-12-18 Pat Name: Marciano Alonso Department: Room: Gender: Male Algologist: : 1965 Requested By: González Sanabria Order Number: [id number] Reading MD: JARRETT DESAI Interpretive Statements Lung unchanged pre/post procedure; Intraprocedure shortess of breath; Symptoms resoled by discharge NOTE: Please note that this is the electrocardiogram portion of the Lexiscan/Sestamibi stress test. The perfusion scan will be documented separately. DATA: Baseline heart rate was 107 beats per minute. Baseline blood pressure was 152/76 millimeters of mercury. Target heart rate was 159. Maximum heart rate achieved was 114. which was 71% of the predicted target heart rate. Maximum blood pressure was 152/76 millimeters of mercury. The reason for ending the test was completion of the protocol. The patient did not experience any symptoms. ELECTROCARDIOGRAM: BASELINE: Sinus rhythm. Left axis. Right bundle branch block EXERCISE: After Lexiscan injection, no ST-T changes suggestive of ischemic noted. No arrhythmia noted. CONCLUSION: Please note due to baseline abnormality of the EKG specificity and sensitivity of the EKG portion of LexiScan MIBI stress test will be low 1. EKG not suggestive of ischemia 2. Lexiscan injection unremarkable. 3. Perfusion scan will be documented separately. Electronically Signed On 01-13-2025 15:25:59 CDT by JARRETT DESAI [email or web address]
[2024-12-18 11:37] VITALS: BP 146/75; PULSE 106
[2024-12-18] MEDS: ondansetron 2 mg/ML SDV 2 mL 4 MG IVP (11:44)
== END 2024-12-18 09:32 | disposition home or self-care (01) ==
LOC: CDL 09:36
PROVIDERS: PCP Internal Medicine; Visit Provider Internal Medicine
DX: R07.9 Chest pain, unspecified (principal); R93.1 Abnormal findings on diagnostic imaging of heart and coronary circulation
CPT/HCPCS: 36415; 78452; 93017; 96374; 96375; A9500; J2405; J2785

== ENCOUNTER 2024-12-25 13:00 | Oncology outpatient (recurring) (ONCR) | payer MEDICARE, MEDICAID, SELFPAY ==
--- NOTE | 2024-12-15 14:30 | USCV_ITS ---
Gavin Marciano Age: 59 Gender: M : 1965 Exam Date: 12/15/2024 14:46 Ordering Phys: González Sanabria M.D ([email or web address]) Technologist: ANDREI Exam Location: [facility] [place] Indication: SOB BP: 106 / 68 HR: Rhythm: Sinus Technical Quality: Adequate MEASUREMENTS (Male / Female) Normal Values 2D ECHO LVOT Diameter 2.0 cm LV Ejection Fraction MOD 4C 48.9 % LV Ejection Fraction MOD 2C 46.6 % LV Ejection Fraction 2C AL 48.3 % LA Diameter 3.9 cm RA Systolic Volume 4C AL 53.0 ml RA Systolic Volume 4C MOD 53.5 ml LA Sys Volume AL 65.8 cm cubed LA Sys Volume Index AL 25.1 cm cubed/m squared Aorta at Sinotubular Diameter 2.8 cm M-MODE LA Ao Ratio MM 1.2 AV Cusp Separation MM 1.2 cm FINDINGS Left Ventricle Right Ventricle Right Atrium Left Atrium Mitral Valve Aortic Valve Tricuspid Valve Pulmonic Valve Pericardium Aorta IVC CONCLUSIONS Technically limited quality echocardiogram because of poor ultrasonic windows and tachycardia. LV systolic function is grossly normal. Calculated LV EF is 45- 50%. No comparison studies are available. González Sanabria MD (Electronically Signed) Final Date: 15 December 2024 16:50 S
[2024-12-15] MEDS: perflutren protein-a microsphr 0.22 mg/mL SDV 3 mL IV (15:36)
--- NOTE | 2024-12-25 13:00 | MR_ITS ---
WS: [id number] MRI ABDOMEN WITH AND WITHOUT CONTRAST. COMPARISON: Ultrasound 11/22/2024 Multiplanar, multisequence imaging is performed with and without contrast. MultiHance 20 mL. Spleen is markedly enlarged. Loss of the normal concave splenic hilum. Spleen measures 26.2 x 14.5 x 9.0 cm. There is homogeneous signal within the spleen. No masses are identified. No subcapsular collection or hematoma. Spleen is enlarged and displacing the adjacent soft tissue structures. No obstruction of the GI tract. Also of note is marked enlargement of the liver which extends across the midline. Very minimal hepatic steatosis identified within the liver. Gallbladder is slightly contracted. No intrahepatic duct dilatation. Small stone within the gallbladder is not excluded. No stones were identified on the recent ultrasound of 11/22/2024. No renal obstruction. Exophytic cyst from the lower pole LEFT kidney measures 2.1 cm and does not enhance. There are a few additional very tiny nonenhancing cortical lesions within each kidney which are also probably cysts but really too small to characterize. No enhancing mass identified. No ascites. No adenopathy. MR/MR abdomen wo/w con* [id number] IMPRESSION: 1. Marked splenomegaly with no subcapsular hematoma or intrasplenic mass. 2. Marked pattern megaly. No intrahepatic duct dilatation or mass. 3. No ascites or adenopathy. 4. No renal obstruction. LEFT renal cyst. 5. Although the gallbladder is not very well visualized there is a small nodul e within the lumen suggest there may be stones present. No stone identified on the prior ultrasound. Limited evaluation due to patient's body habitus.
[2024-12-25] MEDS: gadobenate dimeglumine 20 mL vial IV (13:50)
== END 2024-12-31 23:59 | disposition home or self-care (01) ==
LOC: RAD 12-26 00:01 → ONCMED 12-26 09:02
PROVIDERS: PCP Internal Medicine; Visit Provider Internal Medicine Medical Oncology
DX: D61.818 Other pancytopenia; R16.1 Splenomegaly, not elsewhere classified; N28.1 Cyst of kidney, acquired; R93.3 Abnormal findings on diagnostic imaging of other parts of digestive tract; R16.0 Hepatomegaly, not elsewhere classified; Z53.9 Procedure and treatment not carried out, unspecified reason
CPT/HCPCS: 74183; A9577; C8924

== ENCOUNTER 2025-01-13 19:26 | Emergency (ER) | payer MEDICARE, MEDICAID, SELFPAY ==
--- OUTSIDE RECORDS SUMMARY | 2024-01-24 09:30 | XMS_ITS ---
Author Organization [employer] Address [address] [place] [address] Care Team Providers Care X Ray Physician Name Role Phone EDI DILL Unavailable [phone] PHILLIP RAZO Unavailable [phone] REASON FOR VISIT retention/VT Encounters Encounter Location Date Provider Diagnosis [employer] [facility] [address] [place] [address] 01/24/2024 PHILLIP RAZO Plan Of Treatment Next Appt Details Provider Name:EDI Salas, 01/22/2025 02:35:00 PM, [address] [place], [address], Progress Notes * AMYKailashmy LDOB: 4 (59 yo M)Acc No.[id number]:01/24/2024 Patient: Marciano HEDRICK Provider: She Razo APRN :1965 A ge:58 Y S ex:Male Date:01/24/2024 Address:[address], [place] Subjective: * Chief Complaints: * 1 . retention/VT. * Medical History: Objective: * Vitals: Assessment: Plan: * Treatment: * Billing Information: * Visit Code: * Procedure Codes: * Electronic signature of LORE RAZO APRN on 01/13/2025 at 07:39 PM CDT Sign off status: Pending * Provider: She Razo APRN Date: 0 01/24/2024 Generated for Miles silva/Poonam/Emiliano on: 0 01/13/2025 07:39 PM CDT
--- OUTSIDE RECORDS SUMMARY | 2025-01-03 01:00 | XMS_ITS ---
Author Organization [facility] Address [address] [place] [address] Care Team Providers Care Dentofacial Orthopedics Dentist Name Role Phone EDI DILL [phone] REASON FOR VISIT Cystoscopy @ MAIN OR (Charity Lift) Encounters Encounter Location Date Provider Diagnosis [facility] [address] [facility] [place] [address] 01/03/2025 EDI FUENTES Plan Of Treatment Next Appt Details Provider Name:EDI RAM Josue, 01/22/2025 02:35:00 PM, [address] [place], [address], Progress Notes * Marciano REYES LDOB: 4 (59 yo M)Acc No.[id number]:01/03/2025 Patient: Marciano HEDRICK Provider: Tram DILL MD :1965 A ge:59 Y S ex:Male Date:01/03/2025 Address:[address], [place] * Billing Information: * Visit Code: * Procedure Codes: * Electronic signature of AUST IN MD FUENTES on 01/13/2025 at 07:35 PM CDT Sign off status: Pending * Provider: Tram DILL MD Date: 01/03/2025 Generated for Miles silva/Poonma/eTransmitting on: 0 01/13/2025 07:35 PM CDT
[2025-01-13] VITALS (10 sets, daily range): BP systolic 105–133; BP diastolic 57–81; PULSE 104–113; RESP 18–31; TEMP 37.1; O2SAT 92–95; BMI 44.6
--- NOTE | 2025-01-13 19:34 | ECG_ITS ---
[facility]: 2025-01-13 Pat Name: Marciano Alonso Department: Room: Gender: Male Fish Seiner: : 1965 Requested By: Dwayne Calderon Order Number: [id number] Clarence MD: Parvez De Anda M.D. Measurements Intervals [place] Rate: 109 P: 0 RI: 0 QRS: -85 QRSD: 104 T: 205 QT: 383 QTc: 518 Interpretive Statements ATRIAL FLUTTER/TACHYCARDIA WITH RAPID VENTRICULAR RESPONSE LOW QRS VOLTAGE [QRS DEFLECTION < 0.5/1.0 mV IN LIMB/CHEST LEADS] POSSIBLE RIGHT VENTRICULAR CONDUCTION DELAY [RSR (QR) IN V1/V2] ANTEROLATERAL MYOCARDIAL INFARCTION , OF INDETERMINATE AGE [40+ ms Q WAVE IN I/aVL/V3-V6] Compared to ECG 04/26/2022 20:08:15 Low QRS voltage now present Electronically Signed On 01-14-2025 20:20:36 CDT by Parvez De Anda M.D. [email or web address]
--- OUTSIDE RECORDS SUMMARY | 2025-01-13 19:34 | XMS_ITS | Encounter Summary ---
Author Organization [facility] Address [address] [place] [address] Care Team Providers Care Steam Bone Press Tender Name Role Phone Cuba Solano MD Primary Care Provider +1 [phone] Encounter Details Date Type Department Care Team (Late st Contact Info) Description 03/02/2008 Outpatient Historical [facility] E [address] [place] [address] Kvng Kilpatrick MD NO ADDRESS ON FILE Social History Tobacco Use Types Packs/Day Years Used Date Smoking Tobacco: Never Assessed Cigarettes Smokeless Tobacco: Current Chew Alcohol Use Standard Drinks/Week Comments No 0 (1 standard drink = 0.6 oz pur e alcohol) Sex and Gender Information Value Date Recorded Sex Assigned at Not on file Legal Sex Male 2:49 AM TECHNOLOGY INFUSION SPECIALIST Gender Identity Not on file Sexual Orientation Not on file documented as of this encounter Plan of Treatment Not on file documented as of this encounter Visit Diagnoses Not on filedocumented in this encounter Care Teams Steam Bone Press Tender Relationship Specialty Start Date End Date Cuba Solano MD PCP - General 07/11/09 documented as of this encounter
--- OUTSIDE RECORDS SUMMARY | 2025-01-13 19:34 | XMS_ITS | Encounter Summary ---
Author Organization [facility] Address [address] [place] [address] Care Team Providers Care Senior Climate Advisor Name Role Phone Cuba Solano MD Primary Care Provider +1 -[phone] Encounter Details Date Type Department Care Team (Late st Contact Info) Description 02/24/2008 Outpatient Historical [facility] DEFAULT DEPARTMENT Kvng Kilpatrick MD NO ADDRESS ON FILE Social History Tobacco Use Types Packs/Day Years Used Date Smoking Tobacco: Never Assessed Cigarettes Smokeless Tobacco: Current Chew Alcohol Use Standard Drinks/Week Comments No 0 (1 standard drink = 0.6 oz pur e alcohol) Sex and Gender Information Value Date Recorded Sex Assigned at Not on file Legal Sex Male 2:49 AM MULTIMEDIA SERVICES MANAGER Gender Identity Not on file Sexual Orientation Not on file documented as of this encounter Plan of Treatment Not on file documented as of this encounter Visit Diagnoses Not on filedocumented in this encounter Care Teams Senior Climate Advisor Relationship Specialty Start Date End Date Cuba Solano MD PCP - General 07/11/09 documented as of this encounter
--- OUTSIDE RECORDS SUMMARY | 2025-01-13 19:34 | XMS_ITS | Encounter Summary ---
Author Organization [facility] Address [address] [place] [address] Care Team Providers Care Residential Lawn Specialist Name Role Phone Cuba Solano MD Primary Care Provider +1 [phone] Encounter Details Date Type Department Care Team (Late st Contact Info) Description 03/19/2008 Outpatient Historical [facility] Keyona Mccloud, CHYRON OPERATOR NO ADDRESS ON FILE Social History Tobacco Use Types Packs/Day Years Used Date Smoking Tobacco: Never Assessed Cigarettes Smokeless Tobacco: Current Chew Alcohol Use Standard Drinks/Week Comments No 0 (1 standard drink = 0.6 oz pur e alcohol) Sex and Gender Information Value Date Recorded Sex Assigned at Not on file Legal Sex Male 2:49 AM GUN PERFORATOR Gender Identity Not on file Sexual Orientation Not on file documented as of this encounter Plan of Treatment Not on file documented as of this encounter Visit Diagnoses Not on filedocumented in this encounter Care Teams Residential Lawn Specialist Relationship Specialty Start Date End Date Cuba Solano MD PCP - General 07/11/09 documented as of this encounter
--- OUTSIDE RECORDS SUMMARY | 2025-01-13 19:34 | XMS_ITS | Encounter Summary ---
Author Organization [facility] Address [address] [place] [address] Care Team Providers Care Production Planning Supervisor Name Role Phone Cuba Solano MD Primary Care Provider +1 -[phone] Encounter Details Date Type Department Care Team (Late st Contact Info) Description 03/01/[address] [facility] E Stephanie [address] [place] [address] Kvng Kilpatrick MD NO ADDRESS ON FILE Social History Tobacco Use Types Packs/Day Years Used Date Smoking Tobacco: Never Assessed Cigarettes Smokeless Tobacco: Current Chew Alcohol Use Standard Drinks/Week Comments No 0 (1 standard drink = 0.6 oz pur e alcohol) Sex and Gender Information Value Date Recorded Sex Assigned at Not on file Legal Sex Male 2:49 AM CHAMBER MAGISTRATE Gender Identity Not on file Sexual Orientation Not on file documented as of this encounter Plan of Treatment Not on file documented as of this encounter Visit Diagnoses Not on filedocumented in this encounter Care Teams Production Planning Supervisor Relationship Specialty Start Date End Date Cuba Solano MD PCP - General 07/11/09 documented as of this encounter
--- OUTSIDE RECORDS SUMMARY | 2025-01-13 19:34 | XMS_ITS | Encounter Summary ---
Author Organization [facility] Address [address] [place] [address] Care Team Providers Care Analyst Microbiology Lab Name Role Phone Cuba Solano MD Primary Care Provider +1 [phone] Encounter Details Date Type Department Care Team (Late st Contact Info) Description 04/10/2008 Outpatient Historical [facility] E [place] [address] [place] [address] Per Perea NP [address] [place] [address] Social History Tobacco Use Types Packs/Day Years Used Date Smoking Tobacco: Never Assessed Cigarettes Smokeless Tobacco: Current Chew Alcohol Use Standard Drinks/Week Comments No 0 (1 standard drink = 0.6 oz pur e alcohol) Sex and Gender Information Value Date Recorded Sex Assigned at Not on file Legal Sex Male 2:49 AM TRADER Gender Identity Not on file Sexual Orientation Not on file documented as of this encounter Plan of Treatment Not on file documented as of this encounter Visit Diagnoses Not on filedocumented in this encounter Care Teams Analyst Microbiology Lab Relationship Specialty Start Date End Date Cuba Solano MD PCP - General 07/11/09 documented as of this encounter
--- OUTSIDE RECORDS SUMMARY | 2025-01-13 19:34 | XMS_ITS | Encounter Summary ---
Author Organization [facility] Address [address] [place] [address] Care Team Providers Care Svp Research & Ebusiness Operations Name Role Phone Cuba Solano MD Primary Care Provider +1 [phone] Encounter Details Date Type Department Care Team (Late st Contact Info) Description 03/26/2008 Outpatient Historical [facility] Other, [facility] NO ADDRESS ON FILE Social History Tobacco Use Types Packs/Day Years Used Date Smoking Tobacco: Never Assessed Cigarettes Smokeless Tobacco: Current Chew Alcohol Use Standard Drinks/Week Comments No 0 (1 standard drink = 0.6 oz pur e alcohol) Sex and Gender Information Value Date Recorded Sex Assigned at Not on file Legal Sex Male 2:49 AM SENIOR MEDICAL TRANSCRIPTIONIST Gender Identity Not on file Sexual Orientation Not on file documented as of this encounter Plan of Treatment Not on file documented as of this encounter Visit Diagnoses Not on filedocumented in this encounter Care Teams Svp Research & Ebusiness Operations Relationship Specialty Start Date End Date Cuba Solano MD PCP - General 07/11/09 documented as of this encounter
--- OUTSIDE RECORDS SUMMARY | 2025-01-13 19:35 | XMS_ITS | Encounter Summary ---
Author Organization [facility] Address [address] [place] [address] Care Team Providers Care Overhead Worker Name Role Phone Cuba Solano MD Primary Care Provider +1 [phone] Encounter Details Date Type Department Care Team (Latest Contact Info) Description 12/03/2006 Outpatient Historical [place] [address] [place] [address] Celso Calvert MD [address] [place] [id number] DM w/o Complication Type II, Uncontrolled (Primary Dx) Social History Tobacco Use Types Packs/Day Years Used Date Smoking Tobacco: Never Assessed Sex and Gender Information Value Date Recorded Sex Assigned at Not on file Legal Sex Male 2:49 AM EXCEL SPECIALIST Gender Identity Not on file Sexual Orientation Not on file documented as of this encounter Plan of Treatment Not on file documented as of this encounter Visit Diagnoses Diagnosis Type II or unspecified type diabetes mellitus 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, uncontrolled- Primary documented in this encounter Care Teams Overhead Worker Relationship Specialty Start Date End Date Cuba Solano MD PCP - General 07/11/09 documented as of this encounter
--- OUTSIDE RECORDS SUMMARY | 2025-01-13 19:35 | XMS_ITS | Encounter Summary ---
Author Organization [facility] Address [address] [place] [address] Care Team Providers Care Stem Roller Name Role Phone Cuba Solano MD Primary Care Provider +1 [phone] Encounter Details Date Type Department Care Team (Late st Contact Info) Description 05/31/2007 Outpatient Historical [facility] Family Medicine [place] [id number] [address] Keyona Mccloud, CRIME PREVENTION POLICE OFFICER NO ADDRESS ON FILE Social History Tobacco Use Types Packs/Day Years Used Date Smoking Tobacco: Never Assessed Sex and Gender Information Value Date Recorded Sex Assigned at Not on file Legal Sex Male 2:49 AM RN FIELD Gender Identity Not on file Sexual Orientation Not on file documented as of this encounter Plan of Treatment Not on file documented as of this encounter Visit Diagnoses Not on filedocumented in this encounter Care Teams Stem Roller Relationship Specialty Start Date End Date Cuba Solano MD PCP - General 07/11/09 documented as of this encounter
--- OUTSIDE RECORDS SUMMARY | 2025-01-13 19:35 | XMS_ITS | Clinical Summary ---
Author Organization [facility] Address [address] [place]: [place] [address] Care Team Providers Care Hazmat Truck Driver Name Role Phone Cuba Solano MD Primary Care Provider +1 [phone] Allergies Active Allergy Reactions Criticality Noted Date Comments Penicillins Rash,Unknown High 09/15/2007 Sulfa (Sulfonamide Antibiotics) Unknown 08/31 Sulfamethoxazole-Trimethoprim Rash,Unknown High 08/31 Medications bi-level machine Bilevel@ cwp with heated humidifier; Face to Face within 6 mo: yes; Length of Need: 99 mo; nasal mask with headgear q 6 mo; mask only q 3 mo;2cushions q mo; Tubing Heated No; non-heated Yes 1/ 3 mo; H20 Chamber 1/ 6 mo; chin strap/ 6 mo; filters (disp 2 / mo, perm 1 /6 mo). 1 Each 0 01/21/2015 Active Active Problems Problem Noted Date Diagnosed Date SCHUYLER (obstructive sleep apnea) 06/06/2010 Ankle instability 04/18/2008 Perennial allergic rhinitis 01/10/2008 Vitamin B12 deficiency 12/13/2007 Amput Above Knee, Unilat (left) 12/13/2007 Essential hypertension, benign Anemia, unspecified Allergy, unspecified not elsewhere classified Esophageal reflux Other and unspecified hyperlipidemia Type II or unspecified type diabetes mellitus 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, not stated as uncontrolled Immunizations Immunization Administration Dates Next Due (PNEUMOVAX 23)(50 YRS UP) PN EUMOCOCCAL POLYSACCHARIDE (PPV23) 0.5 ML, IM 02/21/2008,07/04/2001 Influenza Seasonal Unspecifi ed Formulation IM 02/04/2009,01/31/2007,02/06/2005,02/14,04/07/2001,03/05/1999,04/08/1998 Influenza Vaccine Split 3+ Yrs IM 02/21/2008 Family History Medical History Relation Name Comments Asthma Brother 1 Breast Cancer Brother 2 Diabetes Brother 2 Hypertension Brother 2 Heart Disease Father Hypertension Mother Stroke Mother Hypertension Sister 1 Breast Cancer Sister 2 Heart Disease Sister 2 High Cholesterol Sister 2 Hypertension Sister 2 Relation Name Status Comments Brother 1 Alive Brother 2 Alive Father Mother Alive Sister 1 Alive Sister 2 Alive Social History Tobacco Use Types Packs/Day Years Used Date Smoking Tobacco: Never Assessed Smokeless Tobacco: Current Alcohol Use Standard Drinks/Week Comments No 0 (1 standard drink = 0.6 oz pur e alcohol) Sex and Gender Information Value Date Recorded Sex Assigned at Not on file Legal Sex Male 5:38 AM BEATER WORKER HELPER Gender Identity Not on file Sexual Orientation Not on file Last Filed Vital Signs Vital Sign Reading Time Taken Comments Blood Pressure 134/76 01/21/2015 9:16 AM CDT Pulse 82 01/21/2015 9:16 AM CDT Temperature - - Respiratory Rate - - Oxygen Saturation - - Inhaled Oxygen Concentration - - Weight 127 kg (280 lb) 01/21/2015 9:16 AM CDT Height 182.9 cm (6') 01/21/2015 9:16 AM CDT Body Mass Index 37.97 01/21/2015 9:16 AM CDT Plan of Treatment Health Maintenance Due Date Last Done Comments DIABETES ANNUAL FOOT EXAM 07/23/1981 DIABETES ANNUAL RETINAL EXAM 07/23/1981 DIABETES MICROALBUMIN ANNUAL SCREEN 07/23/1981 LDL CHOLESTEROL ANNUAL 07/23/1981 DTAP/TDAP/TD VACCINES (1 - Tdap) 07/23/1982 FIT-DNA Q 3 years 07/23/2008 FIT/FOBT Q 1 year 07/23/2008 DIABETES HBA1C Q 6 MONTHS 04/12/2009 10/11/2008 ZOSTER VACCINE (1 of 2) 07/23/2013 RSV VACCINE (60+ or ) (1 - Risk 60-74 years 1-dose series) 2023 INFLUENZA VACCINE (#1) 2024 9, 02/21/2008, 01/31/2007, Additional history exists Flex Sig/CT Colonography Q 5 years 01/25/20252019, 01/26/2020 COLORECTAL SCREENING 01/25/2030 01/26/2020, 01/26/20 20 Colorectal Cancer Screening 01/25/2030 Procedures Procedure Name Priority Date/Time Associated Diagnosis Comments ENDOSCOPY, SIGMOID 01/26/2020 12:00 AM CDT from Last 3 Months or Most Recently Relevant to Health Maintenance Results * ENDOSCOPY, SIGMOID (01/26/2020 12:00 AM CDT) us Sgf Scanning GI PROCEDURE ORDERABLES Final Re sult from Last 3 Months or Most Recently Relevant to Health Maintenance Care Teams Hazmat Truck Driver Relationship Specialty Start Date End Date Cuba Solano MD PCP - General 07/11/09
--- OUTSIDE RECORDS SUMMARY | 2025-01-13 19:35 | XMS_ITS | Encounter Summary ---
Author Organization [facility] Address [address] [place] [address] Care Team Providers Care Television Technician Name Role Phone Cuba Solano MD Primary Care Provider +1 [phone] Encounter Details Date Type Department Care Team (Latest Contact Info) Description 11/12/2006 Outpatient Historical [facility] Family Medicine [place] [id number] [address] Keyona Mccloud, LUCIEN NO ADDRESS ON FILE Pain in Limb (Primary Dx) Social History Tobacco Use Types Packs/Day Years Used Date Smoking Tobacco: Never Assessed Sex and Gender Information Value Date Recorded Sex Assigned at Not on file Legal Sex Male 2:49 AM INTELLIGENCE AGENT Gender Identity Not on file Sexual Orientation Not on file documented as of this encounter Plan of Treatment Not on file documented as of this encounter Visit Diagnoses Diagnosis Pain in limb- Primary Pain in soft tissues of limb documented in this encounter Care Teams Television Technician Relationship Specialty Start Date End Date Cuba Solano MD PCP - General 07/11/09 documented as of this encounter
--- OUTSIDE RECORDS SUMMARY | 2025-01-13 19:35 | XMS_ITS | Encounter Summary ---
Author Organization [facility] Address [address] [place] [address] Care Team Providers Care Ethylene Compressor Operator Name Role Phone Cuba Solano MD Primary Care Provider +1 -[phone] Encounter Details Date Type Department Care Team (Late st Contact Info) Description 04/05/2007 Outpatient Historical [facility] Family Medicine [place] [address] [address] Keyona Mccloud, COLUMNIST NO ADDRESS ON FILE Social History Tobacco Use Types Packs/Day Years Used Date Smoking Tobacco: Never Assessed Sex and Gender Information Value Date Recorded Sex Assigned at Not on file Legal Sex Male 2:49 AM MAINTENANCE TEAM MEMBER Gender Identity Not on file Sexual Orientation Not on file documented as of this encounter Plan of Treatment Not on file documented as of this encounter Visit Diagnoses Not on filedocumented in this encounter Care Teams Ethylene Compressor Operator Relationship Specialty Start Date End Date Cuba Solano MD PCP - General 07/11/09 documented as of this encounter
--- OUTSIDE RECORDS SUMMARY | 2025-01-13 19:35 | XMS_ITS | Encounter Summary ---
Author Organization [facility] Address [address] [place] [address] Care Team Providers Care Pocket Secretary Assembler Name Role Phone Cuba Solano MD Primary Care Provider +1 -[phone] Encounter Details Date Type Department Care Team (Late st Contact Info) Description 04/05/2007 Outpatient Historical [facility] Family Medicine [place] [id number] [address] Social History Tobacco Use Types Packs/Day Years Used Date Smoking Tobacco: Never Assessed Sex and Gender Information Value Date Recorded Sex Assigned at Not on file Legal Sex Male 2: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 MED SURG Gender Identity Not on file Sexual Orientation Not on file documented as of this encounter Plan of Treatment Not on file documented as of this encounter Visit Diagnoses Not on filedocumented in this encounter Care Teams Pocket Secretary Assembler Relationship Specialty Start Date End Date Cuba Solano MD PCP - General 07/11/09 documented as of this encounter
--- OUTSIDE RECORDS SUMMARY | 2025-01-13 19:35 | XMS_ITS | Encounter Summary ---
Author Organization [facility] Address [address] [place] [address] Care Team Providers Care Pit Shovel Operator Name Role Phone Cuba Solano MD Primary Care Provider +1 -[phone] Encounter Details Date Type Department Care Team (Late st Contact Info) Description 06/20/2007 Outpatient Historical [facility] Family Medicine [place] [address] [address] Keyona Mccloud, MACHINE STRIPPER CUTTER NO ADDRESS ON FILE Social History Tobacco Use Types Packs/Day Years Used Date Smoking Tobacco: Never Assessed Sex and Gender Information Value Date Recorded Sex Assigned at Not on file Legal Sex Male 2:49 AM LUMBER PILER Gender Identity Not on file Sexual Orientation Not on file documented as of this encounter Plan of Treatment Not on file documented as of this encounter Visit Diagnoses Not on filedocumented in this encounter Care Teams Pit Shovel Operator Relationship Specialty Start Date End Date Cuba Solano MD PCP - General 07/11/09 documented as of this encounter
--- OUTSIDE RECORDS SUMMARY | 2025-01-13 19:35 | XMS_ITS | Encounter Summary ---
Author Organization [facility] Address [address] [place] [address] Care Team Providers Care Retail Director Name Role Phone Cuba Solano MD Primary Care Provider +1 -[phone] Encounter Details Date Type Department Care Team (Late st Contact Info) Description 08/05/[address] [facility] Family Medicine [place] [address] [address] Social History Tobacco Use Types Packs/Day Years Used Date Smoking Tobacco: Never Assessed Sex and Gender Information Value Date Recorded Sex Assigned at Not on file Legal Sex Male 2:49 AM CORROSION PREVENTION METAL SPRAYER Gender Identity Not on file Sexual Orientation Not on file documented as of this encounter Plan of Treatment Not on file documented as of this encounter Visit Diagnoses Not on filedocumented in this encounter Care Teams Retail Director Relationship Specialty Start Date End Date Cbua Solaon MD PCP - General 07/11/09 documented as of this encounter
--- OUTSIDE RECORDS SUMMARY | 2025-01-13 19:35 | XMS_ITS | Encounter Summary ---
Author Organization [facility] Address [address] [place] [address] Care Team Providers Care Server Developer Name Role Phone Cuba Solano MD Primary Care Provider +1 -[phone] Encounter Details Date Type Department Care Team (Late st Contact Info) Description 06/20/2007 Outpatient Historical [facility] Other, [facility] NO ADDRESS ON FILE Social History Tobacco Use Types Packs/Day Years Used Date Smoking Tobacco: Never Assessed Sex and Gender Information Value Date Recorded Sex Assigned at Not on file Legal Sex Male 2:49 AM BACK ROLL LATHE OPERATOR Gender Identity Not on file Sexual Orientation Not on file documented as of this encounter Plan of Treatment Not on file documented as of this encounter Visit Diagnoses Not on filedocumented in this encounter Care Teams Server Developer Relationship Specialty Start Date End Date Cuba Solano MD PCP - General 07/11/09 documented as of this encounter
--- OUTSIDE RECORDS SUMMARY | 2025-01-13 19:35 | XMS_ITS | Encounter Summary ---
Author Organization [facility] Address [address] [place] [address] Care Team Providers Care Bottler Name Role Phone Cuba Solano MD Primary Care Provider +1 -[phone] Encounter Details Date Type Department Care Team (Latest Contact Info) Description 06/10/2007 Outpatient Historical [facility] [address] [place] [address] Keyona Mccloud, LUCIEN NO ADDRESS ON FILE DM w/o Complication Type II, Uncontrolled Social History Tobacco Use Types Packs/Day Years Used Date Smoking Tobacco: Never Assessed Sex and Gender Information Value Date Recorded Sex Assigned at Not on file Legal Sex Male 2:49 AM STOREROOM SUPERVISOR Gender Identity Not on file Sexual Orientation Not on file documented as of this encounter Plan of Treatment Not on file documented as of this encounter Visit Diagnoses Diagnosis Type II or unspecified type diabetes mellitus 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, uncontrolled documented in this encounter Care Teams Bottler Relationship Specialty Start Date End Date Cuba Solano MD PCP - General 07/11/09 documented as of this encounter
--- OUTSIDE RECORDS SUMMARY | 2025-01-13 19:35 | XMS_ITS | Encounter Summary ---
Author Organization [facility] Address [address] [place] [address] Care Team Providers Care Carrot Buncher Name Role Phone Cuba Solano MD Primary Care Provider +1 -[phone] Encounter Details Date Type Department Care Team (Latest Contact Info) Description 12/30/2006 Outpatient Historical [facility] Family Medicine [place] [address] [address] Keyona Mccloud FNP NO ADDRESS ON FILE DM w/o Complication Type II (CMS/[facility]) (Primary Dx); Allergy, Unspecified not Elsewhere Classified; Unspecified Otitis Media; Neuropathy in Diabetes Social History Tobacco Use Types Packs/Day Years Used Date Smoking Tobacco: Never Assessed Sex and Gender Information Value Date Recorded Sex Assigned at Not on file Legal Sex Male 2:49 AM GUN STRIPER Gender Identity Not on file Sexual Orientation Not on file documented as of this encounter Plan of Treatment Not on file documented as of this encounter Visit Diagnoses Diagnosis Type II or unspecified type diabetes mellitus 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, not stated as uncontrolled- Primary Allergy, unspecified not elsewhere classified Unspecified otitis media Neuropathy in diabetes Polyneuropathy in diabetes documented in this encounter Care Teams Carrot Buncher Relationship Specialty Start Date End Date Cuba Solano MD PCP - General 07/11/09 documented as of this encounter
--- OUTSIDE RECORDS SUMMARY | 2025-01-13 19:35 | XMS_ITS | Encounter Summary ---
Author Organization [facility] Address [address] [place] [address] Care Team Providers Care Community Educator Name Role Phone Cuba Solano MD Primary Care Provider +1 [phone] Encounter Details Date Type Department Care Team (Late st Contact Info) Description 09/21/2007 Outpatient Historical [facility] Keyona Mccloud, SKIN DIVER NO ADDRESS ON FILE Social History Tobacco Use Types Packs/Day Years Used Date Smoking Tobacco: Never Assessed Sex and Gender Information Value Date Recorded Sex Assigned at Not on file Legal Sex Male 2:49 AM OPERATIONS AGENT Gender Identity Not on file Sexual Orientation Not on file documented as of this encounter Plan of Treatment Not on file documented as of this encounter Visit Diagnoses Not on filedocumented in this encounter Care Teams Community Educator Relationship Specialty Start Date End Date Cuba Solano MD PCP - General 07/11/09 documented as of this encounter
--- OUTSIDE RECORDS SUMMARY | 2025-01-13 19:35 | XMS_ITS | Encounter Summary ---
Author Organization [facility] Address [address] [place] [address] Care Team Providers Care Patrol Police Lieutenant Name Role Phone Cuba Solano MD Primary Care Provider [phone] [phone] Encounter Details Date Type Department Care Team (Late st Contact Info) Description 12/26/2007 Outpatient Historical [facility] Other, [...] on file Legal Sex Male 2:49 AM TOW TRUCK OPERATOR Gender Identity Not on file Sexual Orientation Not on file documented as of this encounter Plan of Treatment Not on file documented as of this encounter Visit Diagnoses Not on filedocumented in this encounter Care Teams Patrol Police Lieutenant Relationship Specialty Start Date End Date Cuba Solano MD PCP - General 07/11/09 documented as of this encounter
--- OUTSIDE RECORDS SUMMARY | 2025-01-13 19:35 | XMS_ITS | Encounter Summary ---
Author Organization [facility] Address [address] [place] [address] Care Team Providers Care Accelerator Technician Name Role Phone Cuba Solano MD Primary Care Provider [phone] [phone] Encounter Details Date Type Department Care Team (Latest Contact Info) Description 05/11/2007 Outpatient Historical [facility] [address] [place] [address] Keyona Mccloud, LUCIEN NO ADDRESS ON FILE DM w/o Complication Type II, Uncontrolled Social History Tobacco Use Types Packs/Day Years Used Date Smoking Tobacco: Never Assessed Sex and Gender Information Value Date Recorded Sex Assigned at Not on file Legal Sex Male 2:49 AM DEAN OF WOMEN Gender Identity Not on file Sexual Orientation Not on file documented as of this encounter Plan of Treatment Not on file documented as of this encounter Visit Diagnoses Diagnosis Type II or unspecified type diabetes mellitus 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, uncontrolled documented in this encounter Care Teams Accelerator Technician Relationship Specialty Start Date End Date Cuba Solano MD PCP - General 07/11/09 documented as of this encounter
--- OUTSIDE RECORDS SUMMARY | 2025-01-13 19:35 | XMS_ITS | Encounter Summary ---
Author Organization [facility] Address [address] [place] [address] Care Team Providers Care Human Resource Adviser Name Role Phone Cuba Solano MD Primary Care Provider [phone] [phone] Encounter Details Date Type Department Care Team (Latest Contact Info) Description 06/17/2007 Outpatient Historical [place] 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
--- OUTSIDE RECORDS SUMMARY | 2025-01-13 19:35 | XMS_ITS | Encounter Summary ---
Author Organization [facility] Address [address] [place] [address] Care Team Providers Care Bridge Club Manager Name Role Phone Cuba Solano MD Primary Care Provider [phone] [phone] Encounter Details Date Type Department Care Team (Latest Contact Info) Description 09/06/2006 [facility] [address] [place] [address] Huey Upton Jr., MD [address] [place], [place] [address] [address] [place] [address] DM w/o Complication Type II (CMS/HCC) (Primary Dx) Social History Tobacco Use Types Packs/Day Years Used Date Smoking Tobacco: Never Assessed Sex and Gender Information Value Date Recorded Sex Assigned at Not on file Legal Sex Male 2:49 AM VP Gender Identity Not on file Sexual Orientation Not on file documented as of this encounter Plan of Treatment Not on file documented as of this encounter Visit Diagnoses Diagnosis Type II or unspecified type diabetes mellitus 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, not stated as uncontrolled- Primary documented in this encounter Care Teams Bridge Club Manager Relationship Specialty Start Date End Date Cuba Solano MD PCP - General 07/11/09 documented as of this encounter
--- OUTSIDE RECORDS SUMMARY | 2025-01-13 19:35 | XMS_ITS | Encounter Summary ---
Author Organization [facility] Address [address] [place] [address] Care Team Providers Care Metalsmith Apprentice Name Role Phone Cuba Solano MD Primary Care Provider [phone] [phone] Encounter Details Date Type Department Care Team (Latest Contact Info) Description 12/10/2006 Outpatient Historical 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
--- OUTSIDE RECORDS SUMMARY | 2025-01-13 19:35 | XMS_ITS | Encounter Summary ---
Author Organization [facility] Address [address] [place] [address] Care Team Providers Care Semiconductor Bonder Name Role Phone Cuba Solano MD Primary Care Provider [phone] [phone] Encounter Details Date Type Department Care Team (Late st Contact Info) Description 12/15/2007 Outpatient Historical [facility] Keyona Mccloud, PE ELECTRICAL ENGINEER NO ADDRESS ON FILE Social History Tobacco Use Types Packs/Day Years Used Date Smoking Tobacco: Never Assessed Cigarettes Smokeless Tobacco: Current Chew Alcohol Use Standard Drinks/Week Comments No 0 (1 standard drink = 0.6 oz pur e alcohol) Sex and Gender Information Value Date Recorded Sex Assigned at Not on file 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
--- OUTSIDE RECORDS SUMMARY | 2025-01-13 19:35 | XMS_ITS | Encounter Summary ---
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
--- OUTSIDE RECORDS SUMMARY | 2025-01-13 19:35 | XMS_ITS | Encounter Summary ---
Author Organization [facility] Address [address] [place] [address] Care Team Providers Care Mushroom Spawn Maker Name Role Phone Cuba Solano MD Primary Care Provider [phone] [phone] Encounter Details Date Type Department Care Team (Late st Contact Info) Description 02/07/2008 Outpatient Historical [facility] [address] [place] [address] Per Perea NP [address] [place] [address] Social History Tobacco Use Types Packs/Day Years Used Date Smoking Tobacco: Never Assessed Cigarettes Smokeless Tobacco: Current Chew Alcohol Use Standard Drinks/Week Comments No 0 (1 standard drink = 0.6 oz pur e alcohol) Sex and Gender Information Value Date Recorded Sex Assigned at Not on file 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
--- OUTSIDE RECORDS SUMMARY | 2025-01-13 19:35 | XMS_ITS | Encounter Summary ---
Author Organization [facility] Address [address] [place] [address] Care Team Providers Care Clay Molder Name Role Phone Cuba Solano MD Primary Care Provider [phone] [phone] Encounter Details Date Type Department Care Team (Latest Contact Info) Description 11/30/2006 Outpatient Historical [facility] [place] [id number] [address] Keyona Mccloud, LUCIEN NO ADDRESS ON FILE Unspecified Otitis Media (Primary Dx); DM w/o Complication Type II (CMS/HCC); Asymptomatic Varicose Veins Social History Tobacco Use Types Packs/Day Years Used Date Smoking Tobacco: Never Assessed Sex and Gender Information Value Date Recorded Sex Assigned at Not on file 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
--- OUTSIDE RECORDS SUMMARY | 2025-01-13 19:35 | XMS_ITS | Encounter Summary ---
Author Organization [facility] Address [address] [place] [address] Care Team Providers Care Knuckle Bender Name Role Phone Cuba Solano MD Primary Care Provider [phone] [phone] Encounter Details Date Type Department Care Team (Late st Contact Info) Description 03/07/2007 Outpatient Historical [place] 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
--- OUTSIDE RECORDS SUMMARY | 2025-01-13 19:35 | XMS_ITS | Continuity of Care Document ---
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 Chris Parker DO Attending Physician [phone] Medications Medication Frequency Instructions Diagnosis Start Date End Date Last Administered acetaminophen 500 mg tablet Every 6 Hours - PRN 1, oral, Every 6 Hours - PRN, Clinical indication: Fever/Pain 024 01/13/2025 06:41 AM albuterol sulfate 2.5 mg /3 mL (0.083 %) solution for nebulization Every 6 Hours - PRN 1inh, inhalation, Every 6 Hours - PRN, Clinical indication: dyspnea 025 allopurinol 300 mg tablet Once A Day 1, oral, Once A Day, DX: gout M10.9 : Gout, unspecified 024 01/13/2025 06:53 AM amiodarone 200 mg tablet Once A Day 1, oral, Once A Day 024 01/13/2025 06:53 AM Artificial Tears (PF) (dextran 70-hypromellose (pf)) 0.1-0.3 % dropperette Every 2 Hours - PRN apply both eyes, ophthalmic (eye), Every 2 Hours - PRN, May apply to each eye as needed for irritation 07/31/2 025 atorvastatin 20 mg tablet Once A Day 1, oral, Once A Day 01/13/2025 06:53 AM Breztri Aerosphere (budesonide-glycop yr-formoterol) 160-9-4.8 mcg/actuation HFA aerosol inhaler Twice A Day 2 puffs, inhalation, Twice A Day J44.9 : Chronic obstructive pulmonary disease, unspecified 01/13/2025 06:53 AM brimonidine 0.2 % drops Twice A Day 1 gtt each eye, ophthalmic (eye), Twice A Day 01/13/2025 06:53 AM brinzolamide 1 % drops,suspension Twice A Day 1 gtt each eye, ophthalmic (eye), Twice A Day 01/13/2025 06:53 AM cholecalciferol (vitamin D3) 25 mcg (1,000 unit) capsule Once A Day 1, oral, Once A Day 01/13/2025 06:53 AM diclofenac sodium 1 % gel Three Times A Day - PRN 2grams, topical, Three Times A Day - PRN, Apply 2grams to Lt shoulder TID PRN pain 01/12/2025 07:14 AM Dulcolax (bisacodyl) (bisacodyl) 5 mg tablet,delayed release (DR/EC) Once A Day - PRN 2 tabs/10mg, oral, Once A Day - PRN, Give if no results from [facility] 01/07/2025 07:12 AM Dulcolax (bisacodyl) (bisacodyl) 10 mg suppository Once A Day - PRN 1 suppository, rectal, Once A Day - PRN, Give rectally if can't take p/o, if no results from [facility] [place] Eliquis (apixaban) 5 mg tablet Twice A Day 1, oral, Twice A Day 01/13/2025 06:53 AM esomeprazole magnesium 40 mg capsule,delayed release(DR/EC) Twice A Day 1, oral, Twice A Day 01/13/2025 03:51 PM Fleet Enema (sodium phosphates) 19-7 gram/118 mL enema Once A Day - PRN 1 application, rectal, Once A Day - PRN, Give fleets if no results from [facility] and Dulcolax Flonase Allergy Relief (fluticasone propionate) 50 mcg/actuation spray,suspension Twice A Day 1 SPRAY, nasal, Twice A Day, 1 SPRAY BOTH NOSTRILS bid 01/13/2025 06:53 AM hydrocodone-acetam inophen 5-325 mg tablet Three Times A Day - PRN 1 tab, oral, Three Times A Day - PRN, clinical indication : pain 01/13/2025 01:34 PM insulin aspart U-100 100 unit/mL (3 mL) insulin pen With Meals 45 units, subcutaneous, With Meals 01/13/2025 01:35 PM insulin glargine-yfgn 100 unit/mL (3 mL) insulin pen At Bedtime 140 units, subcutaneous, At Bedtime 01/12/2025 07:21 PM latanoprost 0.005 % drops At Bedtime 1 gtts Both eyes, ophthalmic (eye), At Bedtime 01/12/2025 07:21 PM Lidoderm (lidocaine) 5 % adhesive patch,medicated Twice A Day as directed, topical, Twice A Day, Apply to lower back in am and remove in hs 01/13/2025 09:05 AM metoclopramide HCl 10 mg tablet Four Times A Day 1, oral, Four Times A Day 01/13/2025 03:51 PM metoprolol tartrate 100 mg tablet Twice A Day 1, oral, Twice A Day 01/13/2025 06:53 AM Milk of Magnesia (magnesium hydroxide) 400 mg/5 mL suspension Every 72 Hours - PRN 30 ml, oral, Every 72 Hours - PRN, if no BM in 3 days DO NOT GIVE TO RENAL PATIENTS--GO TO DULCOLAX ORDERS 11/26/2024 07:09 PM Miralax (polyethylene glycol 3350) 17 gram/dose powder Once A Day 17 gram, oral, Once A Day, administer in 8 oz of juice or water 01/13/2025 06:53 AM montelukast 10 mg tablet At Bedtime 1, oral, At Bedtime J44.9 : Chronic obstructive pulmonary disease, unspecified 01/12/2025 07:21 PM Ocusoft Eyelid Cleansing Pads ([employer] medical supply) - pad Once A Morning 2, miscellaneous, Once A Morning, use one pad per eye and clean each eye lid every am 01/13/2025 06:41 AM Ozempic (semaglutide) 0.25 mg or 0.5 mg (2 mg/3 mL) pen injector Once A Day on Wed 0.5mg, subcutaneous, Once A Day on Wed2024 pregabalin 50 mg capsule Three Times A Day 50mg, oral, Three Times A Day 01/13/2025 01:35 PM Senior Tabs (tguyasoq-vmj-ih-l ycopen-lutein) 0.4 mg-300 mcg- 250 mcg tablet Once A Day 1, oral, Once A Day 01/13/2025 06:53 AM senna 8.6 mg tablet Twice A Day , oral, Twice A Day 01/13/2025 06:53 AM spironolactone 25 mg tablet Once A Day 05/04 tab, oral, Once A Day, chf 01/13/2025 06:53 AM Systane Nighttime (white petrolatum-mineral oil) 94-3 % ointment At Bedtime apply to both eyes, ophthalmic (eye), At Bedtime, Apply ointment to each eye prior to applying cpap mask 01/12/2025 07:21 PM tamsulosin 0.4 mg capsule Twice A Day 1, oral, Twice A Day 01/13/2025 06:53 AM triamcinolone acetonide 0.1 % cream Twice A Day - PRN apply to both ears, topical, Twice A Day - PRN, Clinical indication: Itching Arexvy (PF) (rsvpref3 antigen-as01e (pf)) 120 mcg/0.5 mL suspension for reconstitution Once - One Time 0.5ml, intramuscular, Once - One Time 202412/19/2024 09:40 AM doxycycline hyclate 100 mg tablet Twice A Day 1, oral, Twice A Day 202401/10/2025 08:25 PM Eliquis (apixaban) 5 mg tablet Twice A Day 1, oral, Twice A Day 202412/27/2024 06:58 AM Eliquis (apixaban) 5 mg tablet Twice A Day 1, oral, Twice A Day 202412/30/2024 06:49 PM Eliquis (apixaban) 5 mg tablet Twice A Day 1, oral, Twice A Day 2024 hydrocodone-acetam inophen 5-325 mg tablet Three Times A Day - PRN 1 tab, oral, Three Times A Day - PRN, clinical indication : pain 202401/09/2025 07:39 AM hydrocodone-acetam inophen 5-325 mg tablet Three Times A Day - PRN 1 tab, oral, Three Times A Day - PRN, clinical indication : pain 202401/09/2025 01:08 PM insulin aspart U-100 100 unit/mL (3 mL) insulin pen With Meals 40 units, subcutaneous, With Meals 202401/11/2025 11:30 AM insulin glargine-yfgn 100 unit/mL (3 mL) insulin pen At Bedtime 130 units, subcutaneous, At Bedtime 202401/10/2025 08:25 PM latanoprost 0.005 % drops At Bedtime 1 gtts left eye, ophthalmic (eye), At Bedtime 202401/02/2025 07:41 PM metoprolol tartrate 100 mg tablet Twice A Day 1, oral, Twice A Day 202412/16/2024 12:25 AM Ozempic (semaglutide) 1 mg/dose (4 mg/3 mL) pen injector Once A Day on Wed 1mg, subcutaneous, Once A Day on Wed 025 202412/13/2024 07:21 AM pregabalin 50 mg capsule Three Times A Day 50mg, oral, Three Times A Day 202401/09/2025 01:08 PM Problems Code Type Problem ICD Code Effective Date Status ICD-10 Chronic atrial fibrillation, unspecified I48.20 02/24/2024 Active ICD-10 custodial (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 of anticoagulants Z79.0 1 02/24/2024 Active ICD-10 Unspecified atrial flutter I48.92 Active ICD-10 Chronic obstructive pulmonary disease, unspecified J44.9 02/24/2024 Active ICD-10 oysterman (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 of 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 Z79 .51 02/24/2024 Active ICD-10 Sleep apnea, unspecified G47.30 02/24/2024 Active ICD-10 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 d isease with heart failure I11.0 02/24/2024 Active ICD-10 Heart failure, unspecified I50.9 Active ICD-10 Hyperlipidemia, unspecified E78.5 02/24/20 Active ICD-10 Type 2 diabetes mellitus with hyperglycemia E11 .65 04/11/2024 Active ICD-10 Type 2 diabetes bolivar itus with diabetic neuropathy, unspecified E11.40 02/24/2024 Active ICD-10 Type 2 diabetes bolivar itus with diabetic autonomic (poly)neuropathy E11.43 07/06/2024 Active ICD-10 Gastroparesis K31.84 07/06/2024 Active ICD-10 custodial (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 of insulin Z79.4 1 Active ICD-10 Long-term (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 of injectable non-insulin antidiabetic drugs Z79.85 10/30/2024 Active ICD-10 Gout, unspecified M10.9 02/24/2024 Active ICD-10 Other muscle spasm M62.838 02/24/2024 Active ICD-10 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 02/24/2024 Active ICD-10 Morbid (severe) obes ity due to excess calories E66.01 02/24/2024 Active ICD-10 Body mass index [BMI] 38.0-38.9, adult Z68.38 11/16/2024 Active ICD-10 Other chronic pain G89.29 09/04/2024 Active ICD-10 Unspecified rotator cuff tear or rupture of right shoulder, not specified as traumatic M75.101 11/23/2024 Active ICD-10 Strain of other musc les, fascia and tendons at shoulder and upper arm level, right arm, subsequent encounter S46.811D 11/23/2024 Active ICD-10 Pain in right shoulder M25.511 09/04/2024 Ac tive ICD-10 Thrombocytopenia, unspecified D69.6 2024 Active ICD-10 Benign prostatic hyp erplasia without lower urinary tract symptoms N40.0 02/24/2024 Active ICD-10 Other seasonal allergic rhinitis J30.2 Active ICD-10 Gastro-esophageal re flux disease without esophagitis K21.9 02/24/2024 Active ICD-10 Testicular hypofunction E29.1 07/06/2024 A ctive ICD-10 Constipation, unspecified K59.00 02/24/2024 Active ICD-10 Dry eye syndrome of unspecified lacrimal gland H04.129 02/24/2024 Active ICD-10 Unspecified glaucoma H40.9 02/24/2024 Acti ve Current Allergies and Intolerances Category Substance Type Reaction Severity Begin Date Status Drug allergy Penicillins (PCN) Allergy Active Drug allergy Sulfonamides (Sulfa) Allergy 2023 Active Vital Signs Height: 72.0 in Date / Time Temperature Pulse (per minute) Respirations (per minute) Systolic BP (mmHg) Diastolic BP (mmHg) O2 Saturation (%) Weight BMI 2024 10:06 AM 96.0 2024 05:17 AM 329.2 lbs 44.6 4 2024 11:30 PM 94.0 2024 07:12 AM 99.0 334.0 lbs 45.2 9 2024 06:34 PM 97.0 2024 07:26 AM 98.0 320.6 lbs 43.4 8 2024 08:23 PM 96.0 2024 07:28 AM 98.4 F 112 18 127 52 92.0 2024 05:37 AM 324.0 lbs 43.9 4 2024 07:16 AM 314.6 lbs 42.6 6 2024 07:15 AM 99.0 2024 06:15 PM 94.0 2024 08:37 AM 97.0 322.0 lbs 43.6 7 2024 07:10 AM 309.0 lbs 41.9 2024 07:04 AM 319.0 lbs 43.2 6 2024 07:09 AM 303.0 lbs 41.0 9 2024 07:23 AM 305.8 lbs 41.4 7 2024 02:44 PM 97.1 F 104 20 94 56 2024 11:42 AM 295.6 lbs 40.0 9 2024 06:30 AM 299.6 lbs 40.6 3 2024 05:22 AM 299.6 lbs 40.6 3 2024 05:12 AM 298.4 lbs 40.4 7 2024 11:55 AM 301.6 lbs 40.9 2024 05:48 AM 313.0 lbs 42.4 5 2024 11:54 AM 310.0 lbs 42.0 4 2024 07:17 AM 299.6 lbs 40.6 3 2024 10:43 AM 97.4 F 96 18 122 78 2024 06:58 AM 298.8 lbs 40.5 2 2024 06:02 AM 302.0 lbs 40.9 5 2024 10:06 AM 302.0 lbs 40.9 5 2024 05:45 AM 301.4 lbs 40.8 7 2024 07:01 AM 298.4 lbs 40.4 7 2024 07:02 AM 301.2 lbs 40.8 5 2024 05:58 AM 295.2 lbs 40.0 3 2024 12:48 PM 98.0 F 100 16 120 70 274.4 lbs 37.2 1 2024 06:07 AM 277.6 lbs 37.6 5 2024 09:12 AM 288.2 lbs 39.0 8 2024 06:40 AM 298.6 lbs 40.4 9 2024 06:37 AM 294.6 lbs 39.9 5 2024 08:38 AM 295.4 lbs 40.0 6 2024 06:54 AM 294.6 lbs 39.9 5 2024 07:19 AM 97.9 F 113 16 148 72 288.8 lbs 39.1 6 2024 07:34 AM 281.0 lbs 38.1 1 2024 10:23 AM 297.0 lbs 40.2 8 2024 07:01 AM 299.6 lbs 40.6 3 2024 07:12 AM 294.4 lbs 39.9 2 2024 07:13 AM 297.4 lbs 40.3 3 2024 07:16 AM 300.0 lbs 40.6 8 2024 04:45 PM 97.7 F 105 18 105 52 2024 11:58 AM 298.2 lbs 40.4 4 2024 06:11 AM 293.2 lbs 39.7 6 2024 07:53 AM 290.4 lbs 39.3 8 2024 06:29 AM 290.6 lbs 39.4 1 2024 06:42 AM 288.0 lbs 39.0 6 2024 11:30 AM 294.0 lbs 39.8 7 2024 05:27 AM 277.6 lbs 37.6 5 2024 07:19 AM 285.0 lbs 38.6 5 2024 07:50 AM 97.4 F 115 18 131 62 2024 07:04 AM 280.6 lbs 38.0 5 2024 06:48 AM 285.4 lbs 38.7 2024 05:02 AM 288.0 lbs 39.0 6 2024 06:21 AM 284.4 lbs 38.5 7 2024 05:10 AM 288.4 lbs 39.1 1 2024 07:14 AM 284.6 lbs 38.5 9 2024 07:05 AM 284.6 lbs 38.5 9 2024 11:41 AM 97.5 F 116 20 151 68 2024 06:30 AM 287.4 lbs 38.9 7 2024 06:29 AM 284.4 lbs 38.5 7 2024 11:16 AM 285.2 lbs 38.6 8 2024 11:26 AM 286.5 lbs 38.8 5 2024 06:34 AM 283.0 lbs 38.3 8 2024 06:06 AM 283.4 lbs 38.4 3 2024 07:23 AM 283.6 lbs 38.4 6 2024 11:25 AM 97.3 F 70 17 122 74 2024 07:34 AM 289.0 lbs 39.1 9 2024 07:07 AM 280.6 lbs 38.0 5 2024 08:24 AM 286.4 lbs 38.8 4 2024 06:57 AM 285.0 lbs 38.6 5 2024 06:57 AM 284.0 lbs 38.5 1 2024 06:51 AM 283.0 lbs 38.3 8 2024 06:52 AM 285.6 lbs 38.7 3 2024 05:20 PM 98.0 F 96 19 132 81 2024 06:19 AM 285.6 lbs 38.7 3 2024 08:28 AM 288.0 lbs 39.0 6 2024 08:21 AM 286.6 lbs 38.8 7 2024 11:18 AM 288.0 lbs 39.0 6 2024 05:46 AM 283.0 lbs 38.3 8 2024 05:52 PM 286.0 lbs 38.7 8 2024 05:32 PM 286.0 lbs 38.7 8 2024 07:15 AM 285.6 lbs 38.7 3 2024 01:35 PM 284.4 lbs 38.5 7 2024 07:30 AM 276.2 lbs 37.4 6 2024 09:17 AM 284.8 lbs 38.6 2 2024 06:59 AM 282.4 lbs 38.3 2024 06:59 AM 287.2 lbs 38.9 5 2024 08:42 AM 285.6 lbs 38.7 3 2024 02:47 PM 286.2 lbs 38.8 1 2024 08:08 AM 285.6 lbs 38.7 3 2024 09:36 AM 287.6 lbs 39.0 2024 09:44 AM 287.0 lbs 38.9 2 2024 11:33 AM 279.2 lbs 37.8 6 2024 08:55 AM 285.4 lbs 38.7 2024 08:25 AM 287.6 lbs 39.0 2024 07:43 AM 284.0 lbs 38.5 1 2024 07:54 AM 290.0 lbs 39.3 3 2024 11:07 AM 287.6 lbs 39.0 2024 08:32 AM 288.4 lbs 39.1 1 Advance Directives Directive Note Full Code Insurance Providers Payer Policy type Group Name Group number Policy ID Address Ph one Medicare Part A Medicare Part A [id number] Phone: Fax: Medicare Part B Medicare Part B [id number] Phone: Fax[place] Medicaid [place] [id number] Phone: [place] [id number] Phone: Fax: [place] [id number] Phone: Fax[place] [id number] Ph one: Fax: Patient Liability Private Phone: Fax: Private Private Phone: Fax: Immunizations Vaccine [employer] Representative Date Status Dose Series Complete COVID-19 Vaccine 01/22/2024 Completed COVID-19 Vaccine Moderna 04/03/2021 Completed 3 COVID-19 Vaccine Moderna 07/09/2020 Completed 2 COVID-19 Vaccine Moderna 06/04/2020 Completed 1 Influenza Vaccine 01/22/2024 Completed RSV Vaccine [facility] 12/19/2024 Completed 1 Procedures Not available for this record Results Name Date Time Positive/Negative Value Unit Range Blood Sugar 01/13/2025 11:36 AM 329.0 mg/dL Blood Sugar 01/13/2025 06:41 AM 247.0 mg/dL Blood Sugar 01/12/2025 07:21 PM 244.0 mg/dL Blood Sugar 01/12/2025 04:45 PM 207.0 mg/dL Blood Sugar 01/12/2025 11:18 AM 212.0 mg/dL Blood Sugar 01/12/2025 07:13 AM 206.0 mg/dL Blood Sugar 01/11/2025 07:18 PM 339.0 mg/dL Blood Sugar 01/11/2025 05:41 PM 416.0 mg/dL Blood Sugar 01/11/2025 11:30 AM 340.0 mg/dL Blood Sugar 01/11/2025 07:27 AM 188.0 mg/dL Blood Sugar 01/10/2025 08:29 PM 402.0 mg/dL Blood Sugar 01/10/2025 04:33 PM 360.0 mg/dL Blood Sugar 01/10/2025 11:33 AM 367.0 mg/dL Blood Sugar 01/10/2025 05:38 AM 329.0 mg/dL Blood Sugar 01/09/2025 07:26 PM 394.0 mg/dL Blood Sugar 01/09/2025 05:17 PM 368.0 mg/dL Blood Sugar 01/09/2025 11:39 AM 400.0 mg/dL Blood Sugar 01/09/2025 07:17 AM 289.0 mg/dL Blood Sugar 01/08/2025 06:23 PM 228.0 mg/dL Blood Sugar 01/08/2025 04:28 PM 247.0 mg/dL Blood Sugar 01/08/2025 11:22 AM 344.0 mg/dL Blood Sugar 01/08/2025 07:39 AM 250.0 mg/dL Blood Sugar 01/07/2025 08:00 PM 295.0 mg/dL Blood Sugar 01/07/2025 05:12 PM 208.0 mg/dL Blood Sugar 01/07/2025 11:34 AM 337.0 mg/dL Blood Sugar 01/07/2025 07:11 AM 244.0 mg/dL Blood Sugar 01/06/2025 07:52 PM 205.0 mg/dL Blood Sugar 01/06/2025 04:31 PM 205.0 mg/dL Blood Sugar 01/06/2025 11:14 AM 230.0 mg/dL Blood Sugar 01/06/2025 07:06 AM 153.0 mg/dL Blood Sugar 01/05/2025 06:55 PM 206.0 mg/dL Blood Sugar 01/05/2025 05:16 PM 161.0 mg/dL Blood Sugar 01/05/2025 12:26 PM 274.0 mg/dL Blood Sugar 01/05/2025 07:10 AM 216.0 mg/dL Blood Sugar 01/04/2025 08:43 PM 418.0 mg/dL Blood Sugar 01/04/2025 04:45 PM 234.0 mg/dL Blood Sugar 01/04/2025 11:50 AM 283.0 mg/dL Blood Sugar 01/04/2025 07:24 AM 161.0 mg/dL Blood Sugar 01/03/2025 08:46 PM 180.0 mg/dL Blood Sugar 01/03/2025 04:12 PM 161.0 mg/dL Blood Sugar 01/03/2025 11:48 AM 148.0 mg/dL Blood Sugar 01/02/2025 11:27 PM 355.0 mg/dL Blood Sugar 01/02/2025 05:26 PM 227.0 mg/dL Blood Sugar 01/02/2025 11:37 AM 270.0 mg/dL Blood Sugar 01/02/2025 06:34 AM 240.0 mg/dL Blood Sugar 01/01/2025 08:29 PM 400.0 mg/dL Blood Sugar 01/01/2025 05:03 PM 282.0 mg/dL Blood Sugar 01/01/2025 11:50 AM 286.0 mg/dL Blood Sugar 01/01/2025 04:54 AM 265.0 mg/dL Blood Sugar 12/31/2024 07:08 PM 426.0 mg/dL Blood Sugar 12/31/2024 04:50 PM 369.0 mg/dL Blood Sugar 12/31/2024 11:25 AM 286.0 mg/dL Blood Sugar 12/31/2024 07:07 AM 203.0 mg/dL Blood Sugar 12/30/2024 08:21 PM 288.0 mg/dL Blood Sugar 12/30/2024 04:39 PM 245.0 mg/dL Blood Sugar 12/30/2024 11:20 AM 454.0 mg/dL Blood Sugar 12/30/2024 12:49 AM 381.0 mg/dL Blood Sugar 12/29/2024 06:41 PM 329.0 mg/dL Blood Sugar 12/29/2024 04:33 PM 306.0 mg/dL Blood Sugar 12/29/2024 11:52 AM 281.0 mg/dL Blood Sugar 12/29/2024 06:20 AM 176.0 mg/dL Blood Sugar 12/28/2024 07:45 PM 330.0 mg/dL Blood Sugar 12/28/2024 05:38 PM 308.0 mg/dL Blood Sugar 12/28/2024 11:20 AM 268.0 mg/dL Blood Sugar 12/28/2024 07:18 AM 221.0 mg/dL Blood Sugar 12/27/2024 07:14 PM 381.0 mg/dL Blood Sugar 12/27/2024 04:45 PM 211.0 mg/dL Blood Sugar 12/27/2024 06:58 AM 231.0 mg/dL Blood Sugar 12/26/2024 07:32 PM 340.0 mg/dL Blood Sugar 12/26/2024 04:49 PM 263.0 mg/dL Blood Sugar 12/26/2024 11:30 AM 210.0 mg/dL Blood Sugar 12/26/2024 06:04 AM 135.0 mg/dL Blood Sugar 12/25/2024 07:31 PM 386.0 mg/dL Blood Sugar 12/25/2024 05:44 PM 181.0 mg/dL Blood Sugar 12/25/2024 01:06 PM 290.0 mg/dL Blood Sugar 12/25/2024 09:45 AM 270.0 mg/dL Blood Sugar 12/24/2024 10:49 PM 305.0 mg/dL Blood Sugar 12/24/2024 05:06 PM 211.0 mg/dL Blood Sugar 12/24/2024 11:18 AM 215.0 mg/dL Blood Sugar 12/24/2024 06:52 AM 209.0 mg/dL Blood Sugar 12/23/2024 07:12 PM 260.0 mg/dL Blood Sugar 12/23/2024 05:31 PM 193.0 mg/dL Blood Sugar 12/23/2024 11:16 AM 255.0 mg/dL Blood Sugar 12/23/2024 07:03 AM 197.0 mg/dL Blood Sugar 12/22/2024 08:35 PM 229.0 mg/dL Blood Sugar 12/22/2024 05:56 PM 193.0 mg/dL Blood Sugar 12/22/2024 11:45 AM 274.0 mg/dL Blood Sugar 12/22/2024 07:03 AM 171.0 mg/dL Blood Sugar 12/21/2024 07:37 PM 316.0 mg/dL Blood Sugar 12/21/2024 05:23 PM 242.0 mg/dL Blood Sugar 12/21/2024 11:06 AM 331.0 mg/dL Blood Sugar 12/21/2024 05:52 AM 321.0 mg/dL Blood Sugar 12/20/2024 07:49 PM 346.0 mg/dL Blood Sugar 12/20/2024 04:41 PM 202.0 mg/dL Blood Sugar 12/20/2024 11:10 AM 264.0 mg/dL Blood Sugar 12/20/2024 05:51 AM 247.0 mg/dL Blood Sugar 12/19/2024 08:25 PM 346.0 mg/dL Blood Sugar 12/19/2024 05:37 PM 238.0 mg/dL Blood Sugar 12/19/2024 11:54 AM 381.0 mg/dL Blood Sugar 12/19/2024 07:36 AM 255.0 mg/dL Blood Sugar 12/18/2024 10:25 PM 250.0 mg/dL Blood Sugar 12/18/2024 04:12 PM 285.0 mg/dL Blood Sugar 12/18/2024 07:32 AM 238.0 mg/dL Blood Sugar 12/17/2024 09:44 PM 242.0 mg/dL Blood Sugar 12/17/2024 05:16 PM 184.0 mg/dL Blood Sugar 12/17/2024 11:42 AM 247.0 mg/dL Blood Sugar 12/17/2024 06:43 AM 264.0 mg/dL Blood Sugar 12/16/2024 11:21 PM 246.0 mg/dL Blood Sugar 12/16/2024 11:41 AM 319.0 mg/dL Blood Sugar 12/16/2024 06:43 AM 227.0 mg/dL Blood Sugar 12/16/2024 12:25 AM 282.0 mg/dL Blood Sugar 12/15/2024 05:06 PM 269.0 mg/dL Blood Sugar 12/15/2024 12:36 PM 299.0 mg/dL Blood Sugar 12/15/2024 06:11 AM 217.0 mg/dL Blood Sugar 12/14/2024 07:50 PM 288.0 mg/dL Blood Sugar 12/14/2024 04:30 PM 122.0 mg/dL Blood Sugar 12/14/2024 11:10 AM 272.0 mg/dL Blood Sugar 12/14/2024 06:55 AM 197.0 mg/dL Blood Sugar 12/13/2024 07:56 PM 347.0 mg/dL Blood Sugar 12/13/2024 04:41 PM 230.0 mg/dL Blood Sugar 12/13/2024 01:22 PM 252.0 mg/dL Blood Sugar 12/13/2024 07:20 AM 230.0 mg/dL Blood Sugar 12/12/2024 09:25 PM 220.0 mg/dL Blood Sugar 12/12/2024 04:46 PM 241.0 mg/dL Blood Sugar 12/12/2024 11:57 AM 316.0 mg/dL Blood Sugar 12/12/2024 07:35 AM 268.0 mg/dL Blood Sugar 12/11/2024 09:00 PM 284.0 mg/dL Blood Sugar 12/11/2024 05:22 PM 211.0 mg/dL Blood Sugar 12/11/2024 12:13 PM 295.0 mg/dL Blood Sugar 12/11/2024 09:20 AM 272.0 mg/dL Blood Sugar 12/10/2024 11:51 PM 232.0 mg/dL Blood Sugar 12/10/2024 04:31 PM 219.0 mg/dL Blood Sugar 12/10/2024 11:10 AM 207.0 mg/dL Blood Sugar 12/10/2024 07:02 AM 275.0 mg/dL Blood Sugar 12/09/2024 09:01 PM 246.0 mg/dL Blood Sugar 12/09/2024 05:23 PM 170.0 mg/dL Blood Sugar 12/09/2024 02:09 PM 216.0 mg/dL Blood Sugar 12/09/2024 07:13 AM 234.0 mg/dL Blood Sugar 12/09/2024 06:21 AM 224.0 mg/dL Blood Sugar 12/09/2024 06:19 AM 242.0 mg/dL Blood Sugar 12/08/2024 11:31 AM 218.0 mg/dL Blood Sugar 12/08/2024 07:13 AM 254.0 mg/dL Blood Sugar 12/07/2024 11:02 PM 333.0 mg/dL Blood Sugar 12/07/2024 04:39 PM 181.0 mg/dL Blood Sugar 12/07/2024 11:17 AM 292.0 mg/dL Blood Sugar 12/07/2024 07:18 AM 287.0 mg/dL Blood Sugar 12/06/2024 10:45 PM 272.0 mg/dL Blood Sugar 12/06/2024 04:31 PM 274.0 mg/dL Blood Sugar 12/06/2024 06:10 AM 257.0 mg/dL Blood Sugar 12/06/2024 12:36 AM 369.0 mg/dL Blood Sugar 12/05/2024 07:07 PM 360.0 mg/dL Blood Sugar 12/05/2024 04:31 PM 347.0 mg/dL Blood Sugar 12/05/2024 11:24 AM 296.0 mg/dL Blood Sugar 12/05/2024 07:44 AM 402.0 mg/dL Blood Sugar 12/04/2024 06:53 PM 351.0 mg/dL Blood Sugar 12/04/2024 05:33 PM 296.0 mg/dL Blood Sugar 12/04/2024 12:53 PM 318.0 mg/dL Blood Sugar 12/04/2024 07:23 AM 344.0 mg/dL Blood Sugar 12/03/2024 09:06 PM 313.0 mg/dL Blood Sugar 12/03/2024 06:01 PM 284.0 mg/dL Blood Sugar 12/03/2024 12:10 PM 378.0 mg/dL Blood Sugar 12/03/2024 06:33 AM 294.0 mg/dL Blood Sugar 12/02/2024 09:27 PM 334.0 mg/dL Blood Sugar 12/02/2024 04:53 PM 271.0 mg/dL Blood Sugar 12/02/2024 11:52 AM 458.0 mg/dL Blood Sugar 12/02/2024 06:52 AM 332.0 mg/dL Blood Sugar 12/01/2024 09:22 PM 313.0 mg/dL Blood Sugar 12/01/2024 04:45 PM 256.0 mg/dL Blood Sugar 12/01/2024 11:27 AM 274.0 mg/dL Blood Sugar 12/01/2024 08:34 AM 281.0 mg/dL Blood Sugar 11/30/2024 07:21 PM 297.0 mg/dL Blood Sugar 11/30/2024 05:39 PM 271.0 mg/dL Blood Sugar 11/30/2024 11:11 AM 453.0 mg/dL Blood Sugar 11/30/2024 07:20 AM 357.0 mg/dL Blood Sugar 11/29/2024 06:39 PM 325.0 mg/dL Blood Sugar 11/29/2024 05:08 PM 209.0 mg/dL Blood Sugar 11/29/2024 12:53 PM 312.0 mg/dL Blood Sugar 11/29/2024 07:06 AM 420.0 mg/dL Blood Sugar 11/28/2024 06:35 PM 378.0 mg/dL Blood Sugar 11/28/2024 05:40 PM 320.0 mg/dL Blood Sugar 11/28/2024 01:20 PM 355.0 mg/dL Blood Sugar 11/28/2024 06:52 AM 347.0 mg/dL Blood Sugar 11/27/2024 07:07 PM 417.0 mg/dL Blood Sugar 11/27/2024 05:33 PM 343.0 mg/dL Blood Sugar 11/27/2024 01:01 PM 431.0 mg/dL Blood Sugar 11/27/2024 07:52 AM 321.0 mg/dL Blood Sugar 11/26/2024 06:59 PM 262.0 mg/dL Blood Sugar 11/26/2024 04:38 PM 214.0 mg/dL Blood Sugar 11/26/2024 11:18 AM 298.0 mg/dL Blood Sugar 11/26/2024 06:31 AM 307.0 mg/dL Blood Sugar 11/25/2024 07:02 PM 284.0 mg/dL Blood Sugar 11/25/2024 05:11 PM 235.0 mg/dL Blood Sugar 11/25/2024 11:33 AM 237.0 mg/dL Blood Sugar 11/25/2024 07:01 AM 310.0 mg/dL Blood Sugar 11/24/2024 07:56 PM 318.0 mg/dL Blood Sugar 11/24/2024 04:49 PM 283.0 mg/dL Blood Sugar 11/24/2024 11:46 AM 387.0 mg/dL Blood Sugar 11/24/2024 07:15 AM 413.0 mg/dL Blood Sugar 11/23/2024 08:38 PM 448.0 mg/dL Blood Sugar 11/23/2024 04:39 PM 280.0 mg/dL Blood Sugar 11/23/2024 11:24 AM 343.0 mg/dL Blood Sugar 11/23/2024 07:06 AM 393.0 mg/dL Blood Sugar 11/23/2024 02:49 AM 473.0 mg/dL Blood Sugar 11/22/2024 04:15 PM 346.0 mg/dL Blood Sugar 11/22/2024 11:14 AM 444.0 mg/dL Blood Sugar 11/21/2024 09:12 PM 387.0 mg/dL Blood Sugar 11/21/2024 12:34 PM 404.0 mg/dL Blood Sugar 11/21/2024 07:40 AM 362.0 mg/dL Blood Sugar 11/20/2024 10:42 PM 423.0 mg/dL Blood Sugar 11/20/2024 05:02 PM 337.0 mg/dL Blood Sugar 11/20/2024 11:18 AM 409.0 mg/dL Blood Sugar 11/20/2024 08:02 AM 316.0 mg/dL Blood Sugar 11/19/2024 08:50 PM 344.0 mg/dL Blood Sugar 11/19/2024 04:50 PM 275.0 mg/dL Blood Sugar 11/19/2024 11:31 AM 353.0 mg/dL Blood Sugar 11/19/2024 06:55 AM 291.0 mg/dL Blood Sugar 11/18/2024 09:45 PM 334.0 mg/dL Blood Sugar 11/18/2024 04:47 PM 231.0 mg/dL Blood Sugar 11/18/2024 11:25 AM 243.0 mg/dL Blood Sugar 11/18/2024 06:50 AM 275.0 mg/dL Blood Sugar 11/17/2024 09:16 PM 226.0 mg/dL Blood Sugar 11/17/2024 05:27 PM 234.0 mg/dL Blood Sugar 11/17/2024 11:03 AM 342.0 mg/dL Blood Sugar 11/17/2024 06:07 AM 245.0 mg/dL Blood Sugar 11/16/2024 09:38 PM 312.0 mg/dL Blood Sugar 11/16/2024 04:45 PM 200.0 mg/dL Blood Sugar 11/16/2024 12:49 PM 253.0 mg/dL Blood Sugar 11/16/2024 07:25 AM 186.0 mg/dL Blood Sugar 11/15/2024 11:12 PM 284.0 mg/dL Blood Sugar 11/15/2024 05:18 PM 172.0 mg/dL Blood Sugar 11/15/2024 11:15 AM 300.0 mg/dL Blood Sugar 11/15/2024 08:50 AM 289.0 mg/dL Blood Sugar 11/14/2024 07:16 PM 349.0 mg/dL Blood Sugar 11/14/2024 04:32 PM 282.0 mg/dL Blood Sugar 11/14/2024 11:54 AM 323.0 mg/dL Blood Sugar 11/14/2024 07:08 AM 303.0 mg/dL Blood Sugar 11/14/2024 01:35 AM 220.0 mg/dL Blood Sugar 11/13/2024 04:39 PM 240.0 mg/dL Blood Sugar 11/13/2024 10:49 AM 314.0 mg/dL Blood Sugar 11/13/2024 08:25 AM 219.0 mg/dL Blood Sugar 11/12/2024 10:56 PM 225.0 mg/dL Blood Sugar 11/12/2024 04:32 PM 200.0 mg/dL Blood Sugar 11/12/2024 01:07 PM 284.0 mg/dL Blood Sugar 11/12/2024 06:57 AM 249.0 mg/dL Blood Sugar 11/11/2024 09:21 PM 224.0 mg/dL Blood Sugar 11/11/2024 04:41 PM 223.0 mg/dL Blood Sugar 11/11/2024 11:28 AM 243.0 mg/dL Blood Sugar 11/11/2024 06:57 AM 240.0 mg/dL Blood Sugar 11/11/2024 12:46 AM 378.0 mg/dL Blood Sugar 11/10/2024 04:58 PM 188.0 mg/dL Blood Sugar 11/10/2024 11:49 AM 348.0 mg/dL Blood Sugar 11/10/2024 06:53 AM 276.0 mg/dL Blood Sugar 11/09/2024 09:08 PM 315.0 mg/dL Blood Sugar 11/09/2024 11:20 AM 280.0 mg/dL Blood Sugar 11/09/2024 06:53 AM 322.0 mg/dL Blood Sugar 11/09/2024 04:38 AM 370.0 mg/dL Blood Sugar 11/08/2024 04:26 PM 333.0 mg/dL Blood Sugar 11/08/2024 12:24 PM 438.0 mg/dL Blood Sugar 11/08/2024 07:09 AM 253.0 mg/dL Blood Sugar 11/07/2024 08:07 PM 351.0 mg/dL Blood Sugar 11/07/2024 05:23 PM 282.0 mg/dL Blood Sugar 11/07/2024 11:38 AM 344.0 mg/dL Blood Sugar 11/07/2024 08:29 AM 273.0 mg/dL Blood Sugar 11/06/2024 08:09 PM 365.0 mg/dL Blood Sugar 11/06/2024 05:34 PM 404.0 mg/dL Blood Sugar 11/06/2024 12:43 PM 419.0 mg/dL Blood Sugar 11/06/2024 08:45 AM 349.0 mg/dL Blood Sugar 11/05/2024 09:14 PM 200.0 mg/dL Blood Sugar 11/05/2024 04:09 PM 343.0 mg/dL Blood Sugar 11/05/2024 10:59 AM 347.0 mg/dL Blood Sugar 11/05/2024 05:43 AM 200.0 mg/dL Blood Sugar 11/04/2024 08:45 PM 469.0 mg/dL Blood Sugar 11/04/2024 05:29 PM 324.0 mg/dL Blood Sugar 11/04/2024 12:04 PM 287.0 mg/dL Blood Sugar 11/04/2024 05:46 AM 144.0 mg/dL Blood Sugar 11/03/2024 08:55 PM 311.0 mg/dL Blood Sugar 11/03/2024 05:29 PM 199.0 mg/dL Blood Sugar 11/03/2024 11:25 AM 329.0 mg/dL Blood Sugar 11/03/2024 06:11 AM 234.0 mg/dL Blood Sugar 11/02/2024 07:35 PM 356.0 mg/dL Blood Sugar 11/02/2024 05:38 PM 341.0 mg/dL Blood Sugar 11/02/2024 11:17 AM 407.0 mg/dL Blood Sugar 11/02/2024 07:14 AM 234.0 mg/dL Blood Sugar 11/01/2024 06:56 PM 366.0 mg/dL Blood Sugar 11/01/2024 04:17 PM 382.0 mg/dL Blood Sugar 11/01/2024 10:54 AM 416.0 mg/dL Blood Sugar 11/01/2024 07:01 AM 343.0 mg/dL Blood Sugar 10/31/2024 07:49 PM 431.0 mg/dL Blood Sugar 10/31/2024 04:30 PM 430.0 mg/dL Blood Sugar 10/31/2024 11:29 AM 365.0 mg/dL Blood Sugar 10/31/2024 07:31 AM 292.0 mg/dL Blood Sugar 10/30/2024 07:57 PM 400.0 mg/dL Blood Sugar 10/30/2024 04:57 PM 373.0 mg/dL Blood Sugar 10/30/2024 11:42 AM 395.0 mg/dL Blood Sugar 10/30/2024 07:53 AM 379.0 mg/dL Blood Sugar 10/29/2024 08:49 PM 304.0 mg/dL Blood Sugar 10/29/2024 04:42 PM 353.0 mg/dL Blood Sugar 10/29/2024 11:17 AM 386.0 mg/dL Blood Sugar 10/29/2024 07:00 AM 333.0 mg/dL Blood Sugar 10/28/2024 08:02 PM 397.0 mg/dL Blood Sugar 10/28/2024 04:35 PM 385.0 mg/dL Blood Sugar 10/28/2024 11:30 AM 404.0 mg/dL Blood Sugar 10/28/2024 07:00 AM 330.0 mg/dL Blood Sugar 10/27/2024 10:06 PM 377.0 mg/dL Blood Sugar 10/27/2024 04:35 PM 480.0 mg/dL Blood Sugar 10/27/2024 11:30 AM 452.0 mg/dL Blood Sugar 10/27/2024 07:19 AM 313.0 mg/dL Blood Sugar 10/26/2024 09:00 PM 387.0 mg/dL Blood Sugar 10/26/2024 04:29 PM 317.0 mg/dL Blood Sugar 10/26/2024 11:29 AM 368.0 mg/dL Blood Sugar 10/26/2024 07:49 AM 272.0 mg/dL Blood Sugar 10/25/2024 08:08 PM 359.0 mg/dL Blood Sugar 10/25/2024 04:51 PM 340.0 mg/dL Blood Sugar 10/25/2024 11:35 AM 476.0 mg/dL Blood Sugar 10/25/2024 07:09 AM 372.0 mg/dL Blood Sugar 10/25/2024 01:34 AM 400.0 mg/dL Blood Sugar 10/24/2024 05:06 PM 374.0 mg/dL Blood Sugar 10/24/2024 12:36 PM 366.0 mg/dL Blood Sugar 10/24/2024 08:44 AM 268.0 mg/dL Blood Sugar 10/23/2024 06:29 PM 396.0 mg/dL Blood Sugar 10/23/2024 05:56 PM 390.0 mg/dL Blood Sugar 10/23/2024 12:21 PM 380.0 mg/dL Blood Sugar 10/23/2024 06:39 AM 299.0 mg/dL Blood Sugar 10/22/2024 10:31 PM 244.0 mg/dL Blood Sugar 10/22/2024 04:26 PM 373.0 mg/dL Blood Sugar 10/22/2024 10:53 AM 495.0 mg/dL Blood Sugar 10/22/2024 08:55 AM 252.0 mg/dL Blood Sugar 10/21/2024 10:19 PM 278.0 mg/dL Blood Sugar 10/21/2024 04:08 PM 402.0 mg/dL Blood Sugar 10/21/2024 11:02 AM 328.0 mg/dL Blood Sugar 10/21/2024 07:57 AM 275.0 mg/dL Blood Sugar 10/20/2024 04:55 PM 407.0 mg/dL Blood Sugar 10/20/2024 12:07 PM 343.0 mg/dL Blood Sugar 10/20/2024 06:49 AM 285.0 mg/dL Blood Sugar 10/19/2024 08:43 PM 376.0 mg/dL Blood Sugar 10/19/2024 03:46 PM 383.0 mg/dL Blood Sugar 10/19/2024 11:29 AM 373.0 mg/dL Blood Sugar 10/19/2024 06:46 AM 119.0 mg/dL Blood Sugar 10/19/2024 01:03 AM 304.0 mg/dL Blood Sugar 10/18/2024 03:26 PM 331.0 mg/dL Blood Sugar 10/18/2024 10:29 AM 440.0 mg/dL Blood Sugar 10/18/2024 05:49 AM 276.0 mg/dL Blood Sugar 10/17/2024 07:48 PM 415.0 mg/dL Blood Sugar 10/17/2024 03:55 PM 430.0 mg/dL Blood Sugar 10/17/2024 10:44 AM 425.0 mg/dL Blood Sugar 10/17/2024 06:31 AM 281.0 mg/dL Blood Sugar 10/17/2024 04:38 AM 318.0 mg/dL Blood Sugar 10/16/2024 05:19 PM 357.0 mg/dL Blood Sugar 10/16/2024 12:18 PM 358.0 mg/dL Blood Sugar 10/16/2024 07:06 AM 336.0 mg/dL Blood Sugar 10/15/2024 08:29 PM 400.0 mg/dL Blood Sugar 10/15/2024 05:27 PM 328.0 mg/dL Goals Goal Date Will have positive responses to activities of my choice weekly through next assessment. 03/08/2025 Marciano will maintain or improve nutrition al status through next review 03/08/2025 Advanced directives will be honored as outlined by patient/family on daily basis thru 120days from update/last review 03/08/2025 Will engage with peers outside of his ro om. 03/08/2025 ADL approaches will meet the residents needs to enhance ability, maintain abilities, or provide quality. 03/08/2025 Resident's needs will be met. 03/08/2025 Resident's skin will remain intact. 10/2024 Resident will verbalize relief of pain. 03/08/2025 to Maintain and improve stre ngth to Upper and lower extremities with exercises and ROM program 3 x week for 12 weeks 03/08/2025 Will have no abnormal bleedi ng within the next 120 days AND/OR Will have no s/sx of increased bleeding over the next 120 days. 03/08/2025 Will have a BM at least ever y 3 days for 120 days since update/last review AND/OR will not experience any complications r/t to colostomy for 120 days from update/ last review AND/OR Will not experience any GI complications for 120 days since update/last review AND/OR Will remain clean, dry between incontinent episodes thru 120days from update/last review 03/08/2025 Encounters Admission Date Discharge Date Description MRN Visit Count 02/24/2024 17:25 LTPAC Admission [id number]
--- OUTSIDE RECORDS SUMMARY | 2025-01-13 19:35 | XMS_ITS | Encounter Summary ---
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
--- OUTSIDE RECORDS SUMMARY | 2025-01-13 19:36 | XMS_ITS | Encounter Summary ---
Author Organization [facility] Address [address] [place] [address] Care Team Providers Care Bean Roaster Name Role Phone Cuba Solano MD Primary Care Provider [phone] Encounter Details Date Type Department Care Team (Late st Contact Info) Description 05/12/2005 Outpatient Historical [facility] Family Medicine [place] [id number] [address] Social History Tobacco Use Types Packs/Day Years Used Date Smoking Tobacco: Never Assessed Sex and Gender Information Value Date Recorded Sex Assigned at Not on file 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
--- OUTSIDE RECORDS SUMMARY | 2025-01-13 19:36 | XMS_ITS | Encounter Summary ---
Author Organization [facility] Address [address] [place] [address] Care Team Providers Care Weaver Axminster Name Role Phone Cuba Solano MD Primary Care Provider [phone] Encounter Details Date Type Department Care Team (Late st Contact Info) Description 07/20/2005 Outpatient Historical [facility] Family Medicine [place] [id number] [address] [address] Social History Tobacco Use Types Packs/Day Years Used Date Smoking Tobacco: Never Assessed Sex and Gender Information Value Date Recorded Sex Assigned at Not on file 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
--- OUTSIDE RECORDS SUMMARY | 2025-01-13 19:36 | XMS_ITS | Encounter Summary ---
Author Organization [facility] Address [address] [place] [address] Care Team Providers Care Art Education Professor Name Role Phone Cuba Solano MD Primary Care Provider [phone] Encounter Details Date Type Department Care Team (Latest Contact Info) Description 04/17/2005 Outpatient Historical [facility] Family Medicine [place]ica [facility] [address] [address] Huey Upton Jr., MD [address] [place] [address] [address] [facility] [address] [place] [address] ALLERGY, UNSPECIFIED (Primary Dx) Social History Tobacco Use Types Packs/Day Years Used Date Smoking Tobacco: Never Assessed Sex and Gender Information Value Date Recorded Sex Assigned at Not on file 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
--- OUTSIDE RECORDS SUMMARY | 2025-01-13 19:36 | XMS_ITS | Continuity of Care Document ---
Author Organization [facility][1] ([facility]) Address [address] [place] [address] Insurance Providers Payer Plan Claims Address Claims Phone Policy Number Group Number Relation Employer Guarantor Name Guarantor Guarantor Address Guarantor Phone [place] [facility] [address] [address], [place] [address] tel:[phone] Self Marciano Alonso [address] [place] [address] [place] [facility] [address], [place] [address] tel:[phone] Self Marciano Alonso [address] [place] [address] [facility] Part B Claims Departme nt, [address] [address], [place] [address] tel:[phone] [id number] Self Marciano Alonso [address] [place] [id number] Problems Condition ICD9 code ICD10 code SNOMED code Start Date End Date S tatus Chronic atrial fibrillation, unspecified I48.20 02/24/2024 Active joint terminal attack controller (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 of anticoagulants Z79.01 02/24/2024 Active Unspecified atrial flutter I48.92 02/24/2024 Active Chronic obstructive pulmonary disease, unspecified J44.9 02/24/2024 Active Acute respiratory failure with hypoxia J96.01 02/24/2024 Active Muscle weakness (generalized) M62.81 02/28/2024 Active Need for assistance with personal care Z74.1 02/28/2024 Active joint terminal attack controller (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 of 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 Z79.51 02/24/2024 Activ e Sleep apnea, unspecified G47.30 02/24/2024 Active 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 heart failure I11.0 02/24/2024 Active Heart failure, unspecified I50.9 02/24/2024 Active Hypotension, unspecified I95.9 02/24/2024 Active Type 2 diabetes mellitus with diabetic neuropathy, unspecified E11.40 02/24/2024 Active half-way (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 of insulin Z79.4 02/24/2024 Active Long-term (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 of injectable non-insulin antidiabetic drugs Z79.85 02/24/2024 Active half-way (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 of oral hypoglycemic drugs Z79.84 02/24/2024 Active Depression, unspecified F32.A 02/24/2024 Active Pressure ulcer of right ankle, stage 2 L89.512 03/28/2024 Active Other muscle spasm M62.838 02/24/2024 Ac tive 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 02/24/2024 Active Morbid (severe) obesity due to excess calories E66.01 02/24/2024 Ac tive Body mass index (BMI) 38.0-38.9, adult Z68.38 02/24/2024 Active Other specified disorders of bladder N32.89 02/24/2024 Active Benign prostatic hyperplasia without lower urinary tract symptoms N40.0 02/24/2024 Ac tive Other seasonal allergic rhinitis J30.2 02/24/2024 Active Unspecified glaucoma H40.9 02/24/2024 Active Dry eye syndrome of unspecified lacrimal gland H04.129 02/24/2024 Active Type 2 diabetes mellitus with hyperglycemia E11.65 04/11/2024 Active Unspecified open wound of abdominal wall, unspecified quadrant without penetration into peritoneal cavity, subsequent encounter S31.109D 05/03/2024 Acti ve Urinary tract infection, site not specified N39.0 05/14/2024 Active Hyperlipidemia, unspecified E78.5 02/24/2024 Active Gout, unspecified M10.9 02/24/2024 Act toby Gastro-esophageal reflux disease without esophagitis K21.9 02/24/2024 Active Constipation, unspecified K59.00 02/24/2024 Active Body mass index (BMI) 39.0-39.9, adult Z68.39 05/12/2024 Active Type 2 diabetes mellitus with diabetic autonomic (poly)neuropathy E11.43 07/06/2024 Active Gastroparesis K31.84 07/06/2024 Active Testicular hypofunction E29.1 07/06/2024 Active Urinary tract infection, site not specified N39.0 08/26/2024 Active Body mass index (BMI) 37.0-37.9, adult Z68.37 08/25/2024 Active Long-term (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 of injectable non-insulin antidiabetic drugs Z79.85 10/30/2024 Active Body mass index (BMI) 38.0-38.9, adult Z68.38 11/16/2024 Active Other chronic pain G89.29 09/04/2024 Ac tive Unspecified rotator cuff tear or rupture of right shoulder, not specified as traumatic M75.101 11/23/2024 Active Strain of other muscles, fascia and tendons at shoulder and upper arm level, right arm, subsequent encounter S46.811D 11/23/2024 Acti ve Pain in right shoulder M25.511 09/04/2024 Active Thrombocytopenia, unspecified D69.6 10/09/2024 Active Results Test Result Date/Time Value / Unit Interp. Refere nce Range Blood chemistry[[id number]] Glucose [Mass/volume] in Serum or Plasma [2345-7] 01/13/2025 04:36 PM 329 mg/dL N Blood chemistry[[id number]] Glucose [Mass/volume] in Serum or Plasma [2345-7] 01/13/2025 11:41 AM 247 mg/dL N Blood chemistry[[id number]] Glucose [Mass/volume] in Serum or Plasma [2345-7] 01/12/2025 12:21 PM 244 mg/dL N Blood chemistry[[id number]] Glucose [Mass/volume] in Serum or Plasma [2345-7] 01/12/2025 04:18 PM 212 mg/dL N Blood chemistry[[id number]] Glucose [Mass/volume] in Serum or Plasma [2345-7] 01/12/2025 09:45 AM 207 mg/dL N Blood chemistry[[id number]] Glucose [Mass/volume] in Serum or Plasma [2345-7] 01/12/2025 12:13 PM 206 mg/dL N Blood chemistry[[id number]] Glucose [Mass/volume] in Serum or Plasma [2345-7] 01/11/2025 12:18 PM 339 mg/dL N Blood chemistry[[id number]] Glucose [Mass/volume] in Serum or Plasma [2345-7] 01/11/2025 10:41 AM 416 mg/dL N Blood chemistry[[id number]] Glucose [Mass/volume] in Serum or Plasma [2345-7] 01/11/2025 04:30 PM 340 mg/dL N Blood chemistry[[id number]] Glucose [Mass/volume] in Serum or Plasma [2345-7] 01/11/2025 12:27 PM 188 mg/dL N Blood chemistry[[id number]] Glucose [Mass/volume] in Serum or Plasma [2345-7] 01/10/2025 01:29 PM 402 mg/dL N Blood chemistry[[id number]] Glucose [Mass/volume] in Serum or Plasma [2345-7] 01/10/2025 04:33 PM 367 mg/dL N Blood chemistry[[id number]] Glucose [Mass/volume] in Serum or Plasma [2345-7] 01/10/2025 09:33 AM 360 mg/dL N Blood chemistry[[id number]] Glucose [Mass/volume] in Serum or Plasma [2345-7] 01/10/2025 10:38 AM 329 mg/dL N Blood chemistry[[id number]] Glucose [Mass/volume] in Serum or Plasma [2345-7] 01/09/2025 12:26 PM 394 mg/dL N Blood chemistry[[id number]] Glucose [Mass/volume] in Serum or Plasma [2345-7] 01/09/2025 04:39 PM 400 mg/dL N Blood chemistry[[id number]] Glucose [Mass/volume] in Serum or Plasma [2345-7] 01/09/2025 10:17 AM 368 mg/dL N Blood chemistry[[id number]] Glucose [Mass/volume] in Serum or Plasma [2345-7] 01/09/2025 12:17 PM 289 mg/dL N Blood chemistry[[id number]] Glucose [Mass/volume] in Serum or Plasma [2345-7] 01/08/2025 04:22 PM 344 mg/dL N Blood chemistry[[id number]] Glucose [Mass/volume] in Serum or Plasma [2345-7] 01/08/2025 11:23 AM 228 mg/dL N Blood chemistry[[id number]] Glucose [Mass/volume] in Serum or Plasma [2345-7] 01/08/2025 09:28 AM 247 mg/dL N Blood chemistry[[id number]] Glucose [Mass/volume] in Serum or Plasma [2345-7] 01/08/2025 12:39 PM 250 mg/dL N Blood chemistry[[id number]] Glucose [Mass/volume] in Serum or Plasma [2345-7] 01/07/2025 01:00 PM 295 mg/dL N Blood chemistry[[id number]] Glucose [Mass/volume] in Serum or Plasma [2345-7] 01/07/2025 04:34 PM 337 mg/dL N Blood chemistry[[id number]] Glucose [Mass/volume] in Serum or Plasma [2345-7] 01/07/2025 10:12 AM 208 mg/dL N Blood chemistry[[id number]] Glucose [Mass/volume] in Serum or Plasma [2345-7] 01/07/2025 12:11 PM 244 mg/dL N Blood chemistry[[id number]] Glucose [Mass/volume] in Serum or Plasma [2345-7] 01/06/2025 12:52 PM 205 mg/dL N Blood chemistry[[id number]] Glucose [Mass/volume] in Serum or Plasma [2345-7] 01/06/2025 04:14 PM 230 mg/dL N Blood chemistry[[id number]] Glucose [Mass/volume] in Serum or Plasma [2345-7] 01/06/2025 09:31 AM 205 mg/dL N Blood chemistry[[id number]] Glucose [Mass/volume] in Serum or Plasma [2345-7] 01/06/2025 12:06 PM 153 mg/dL N Blood chemistry[[id number]] Glucose [Mass/volume] in Serum or Plasma [2345-7] 01/05/2025 11:55 AM 206 mg/dL N Blood chemistry[[id number]] Glucose [Mass/volume] in Serum or Plasma [2345-7] 01/05/2025 10:16 AM 161 mg/dL N Blood chemistry[[id number]] Glucose [Mass/volume] in Serum or Plasma [2345-7] 01/05/2025 05:26 PM 274 mg/dL N Blood chemistry[[id number]] Glucose [Mass/volume] in Serum or Plasma [2345-7] 01/05/2025 12:10 PM 216 mg/dL N Blood chemistry[[id number]] Glucose [Mass/volume] in Serum or Plasma [2345-7] 01/04/2025 04:50 PM 283 mg/dL N Blood chemistry[[id number]] Glucose [Mass/volume] in Serum or Plasma [2345-7] 01/04/2025 01:43 PM 418 mg/dL N Blood chemistry[[id number]] Glucose [Mass/volume] in Serum or Plasma [2345-7] 01/04/2025 12:24 PM 161 mg/dL N Blood chemistry[[id number]] Glucose [Mass/volume] in Serum or Plasma [2345-7] 01/04/2025 09:45 AM 234 mg/dL N Blood chemistry[[id number]] Glucose [Mass/volume] in Serum or Plasma [2345-7] 01/03/2025 04:48 PM 148 mg/dL N Blood chemistry[[id number]] Glucose [Mass/volume] in Serum or Plasma [2345-7] 01/03/2025 01:46 PM 180 mg/dL N Blood chemistry[[id number]] Glucose [Mass/volume] in Serum or Plasma [2345-7] 01/03/2025 09:12 AM 161 mg/dL N Blood chemistry[[id number]] Glucose [Mass/volume] in Serum or Plasma [2345-7] 01/02/2025 04:37 PM 270 mg/dL N Blood chemistry[[id number]] Glucose [Mass/volume] in Serum or Plasma [2345-7] 01/02/2025 04:27 PM 355 mg/dL N Blood chemistry[[id number]] Glucose [Mass/volume] in Serum or Plasma [2345-7] 01/02/2025 11:34 AM 240 mg/dL N Blood chemistry[[id number]] Glucose [Mass/volume] in Serum or Plasma [2345-7] 01/02/2025 10:26 AM 227 mg/dL N Blood chemistry[[id number]] Glucose [Mass/volume] in Serum or Plasma [2345-7] 01/01/2025 04:50 PM 286 mg/dL N Blood chemistry[[id number]] Glucose [Mass/volume] in Serum or Plasma [2345-7] 01/01/2025 01:29 PM 400 mg/dL N Blood chemistry[[id number]] Glucose [Mass/volume] in Serum or Plasma [2345-7] 01/01/2025 10:03 AM 282 mg/dL N Blood chemistry[[id number]] Glucose [Mass/volume] in Serum or Plasma [2345-7] 01/01/2025 09:54 AM 265 mg/dL N Blood chemistry[[id number]] Glucose [Mass/volume] in Serum or Plasma [5-7] 12/31/2024 04:25 PM 286 mg/dL N Blood chemistry[[id number]] Glucose [Mass/volume] in Serum or Plasma [5-7] 12/31/2024 12:08 PM 426 mg/dL N Blood chemistry[[id number]] Glucose [Mass/volume] in Serum or Plasma [5-7] 12/31/2024 12:07 PM 203 mg/dL N Blood chemistry[[id number]] Glucose [Mass/volume] in Serum or Plasma [5-7] 12/31/2024 09:50 AM 369 mg/dL N Blood chemistry[[id number]] Glucose [Mass/volume] in Serum or Plasma [5-7] 12/30/2024 05:49 PM 381 mg/dL N Blood chemistry[[id number]] Glucose [Mass/volume] in Serum or Plasma [2345-7] 12/30/2024 04:20 PM 454 mg/dL N Blood chemistry[[id number]] Glucose [Mass/volume] in Serum or Plasma [2345-7] 12/30/2024 01:21 PM 288 mg/dL N Blood chemistry[[id number]] Glucose [Mass/volume] in Serum or Plasma [5-7] 12/30/2024 09:39 AM 245 mg/dL N Blood chemistry[[id number]] Glucose [Mass/volume] in Serum or Plasma [5-7] 12/29/2024 04:52 PM 281 mg/dL N Blood chemistry[[id number]] Glucose [Mass/volume] in Serum or Plasma [2345-7] 12/29/2024 11:41 AM 329 mg/dL N Blood chemistry[[id number]] Glucose [Mass/volume] in Serum or Plasma [2345-7] 12/29/2024 11:20 AM 176 mg/dL N Blood chemistry[[id number]] Glucose [Mass/volume] in Serum or Plasma [2345-7] 12/29/2024 09:33 AM 306 mg/dL N Blood chemistry[[id number]] Glucose [Mass/volume] in Serum or Plasma [2345-7] 12/28/2024 04:20 PM 268 mg/dL N Blood chemistry[[id number]] Glucose [Mass/volume] in Serum or Plasma [2345-7] 12/28/2024 12:45 PM 330 mg/dL N Blood chemistry[[id number]] Glucose [Mass/volume] in Serum or Plasma [2345-7] 12/28/2024 12:18 PM 221 mg/dL N Blood chemistry[[id number]] Glucose [Mass/volume] in Serum or Plasma [2345-7] 12/28/2024 10:38 AM 308 mg/dL N Blood chemistry[[id number]] Glucose [Mass/volume] in Serum or Plasma [2345-7] 12/27/2024 12:14 PM 381 mg/dL N Blood chemistry[[id number]] Glucose [Mass/volume] in Serum or Plasma [2345-7] 12/27/2024 11:58 AM 231 mg/dL N Blood chemistry[[id number]] Glucose [Mass/volume] in Serum or Plasma [2345-7] 12/27/2024 09:45 AM 211 mg/dL N Blood chemistry[[id number]] Glucose [Mass/volume] in Serum or Plasma [2345-7] 12/26/2024 04:30 PM 210 mg/dL N Blood chemistry[[id number]] Glucose [Mass/volume] in Serum or Plasma [2345-7] 12/26/2024 12:32 PM 340 mg/dL N Blood chemistry[[id number]] Glucose [Mass/volume] in Serum or Plasma [2345-7] 12/26/2024 11:04 AM 135 mg/dL N Blood chemistry[[id number]] Glucose [Mass/volume] in Serum or Plasma [2345-7] 12/26/2024 09:49 AM 263 mg/dL N Blood chemistry[[id number]] Glucose [Mass/volume] in Serum or Plasma [2345-7] 12/25/2024 02:45 PM 270 mg/dL N Blood chemistry[[id number]] Glucose [Mass/volume] in Serum or Plasma [2345-7] 12/25/2024 12:31 PM 386 mg/dL N Blood chemistry[[id number]] Glucose [Mass/volume] in Serum or Plasma [2345-7] 12/25/2024 10:44 AM 181 mg/dL N Blood chemistry[[id number]] Glucose [Mass/volume] in Serum or Plasma [2345-7] 12/25/2024 06:06 AM 290 mg/dL N Blood chemistry[[id number]] Glucose [Mass/volume] in Serum or Plasma [2345-7] 12/24/2024 04:18 PM 215 mg/dL N Blood chemistry[[id number]] Glucose [Mass/volume] in Serum or Plasma [2345-7] 12/24/2024 03:49 PM 305 mg/dL N Blood chemistry[[id number]] Glucose [Mass/volume] in Serum or Plasma [2345-7] 12/24/2024 11:52 AM 209 mg/dL N Blood chemistry[[id number]] Glucose [Mass/volume] in Serum or Plasma [2345-7] 12/24/2024 10:06 AM 211 mg/dL N Blood chemistry[[id number]] Glucose [Mass/volume] in Serum or Plasma [2345-7] 12/23/2024 04:16 PM 255 mg/dL N Blood chemistry[[id number]] Glucose [Mass/volume] in Serum or Plasma [2345-7] 12/23/2024 12:12 PM 260 mg/dL N Blood chemistry[[id number]] Glucose [Mass/volume] in Serum or Plasma [2345-7] 12/23/2024 12:03 PM 197 mg/dL N Blood chemistry[[id number]] Glucose [Mass/volume] in Serum or Plasma [2345-7] 12/23/2024 10:31 AM 193 mg/dL N Blood chemistry[[id number]] Glucose [Mass/volume] in Serum or Plasma [2345-7] 12/22/2024 04:45 PM 274 mg/dL N Blood chemistry[[id number]] Glucose [Mass/volume] in Serum or Plasma [2345-7] 12/22/2024 01:35 PM 229 mg/dL N Blood chemistry[[id number]] Glucose [Mass/volume] in Serum or Plasma [2345-7] 12/22/2024 12:03 PM 171 mg/dL N Blood chemistry[[id number]] Glucose [Mass/volume] in Serum or Plasma [2345-7] 12/22/2024 10:56 AM 193 mg/dL N Blood chemistry[[id number]] Glucose [Mass/volume] in Serum or Plasma [2345-7] 12/21/2024 04:06 PM 331 mg/dL N Blood chemistry[[id number]] Glucose [Mass/volume] in Serum or Plasma [2345-7] 12/21/2024 12:37 PM 316 mg/dL N Blood chemistry[[id number]] Glucose [Mass/volume] in Serum or Plasma [2345-7] 12/21/2024 10:52 AM 321 mg/dL N Blood chemistry[[id number]] Glucose [Mass/volume] in Serum or Plasma [2345-7] 12/21/2024 10:23 AM 242 mg/dL N Blood chemistry[[id number]] Glucose [Mass/volume] in Serum or Plasma [2345-7] 12/20/2024 04:10 PM 264 mg/dL N Blood chemistry[[id number]] Glucose [Mass/volume] in Serum or Plasma [2345-7] 12/20/2024 12:49 PM 346 mg/dL N Blood chemistry[[id number]] Glucose [Mass/volume] in Serum or Plasma [2345-7] 12/20/2024 10:51 AM 247 mg/dL N Blood chemistry[[id number]] Glucose [Mass/volume] in Serum or Plasma [2345-7] 12/20/2024 09:41 AM 202 mg/dL N Blood chemistry[[id number]] Glucose [Mass/volume] in Serum or Plasma [2345-7] 12/19/2024 04:54 PM 381 mg/dL N Blood chemistry[[id number]] Glucose [Mass/volume] in Serum or Plasma [2345-7] 12/19/2024 01:25 PM 346 mg/dL N Blood chemistry[[id number]] Glucose [Mass/volume] in Serum or Plasma [2345-7] 12/19/2024 12:36 PM 255 mg/dL N Blood chemistry[[id number]] Glucose [Mass/volume] in Serum or Plasma [2345-7] 12/19/2024 10:37 AM 238 mg/dL N Blood chemistry[[id number]] Glucose [Mass/volume] in Serum or Plasma [2345-7] 12/18/2024 03:25 PM 250 mg/dL N Blood chemistry[[id number]] Glucose [Mass/volume] in Serum or Plasma [2345-7] 12/18/2024 12:32 PM 238 mg/dL N Blood chemistry[[id number]] Glucose [Mass/volume] in Serum or Plasma [2345-7] 12/18/2024 09:12 AM 285 mg/dL N Blood chemistry[[id number]] Glucose [Mass/volume] in Serum or Plasma [2345-7] 12/17/2024 04:42 PM 247 mg/dL N Blood chemistry[[id number]] Glucose [Mass/volume] in Serum or Plasma [2345-7] 12/17/2024 02:44 PM 242 mg/dL N Blood chemistry[[id number]] Glucose [Mass/volume] in Serum or Plasma [2345-7] 12/17/2024 11:43 AM 264 mg/dL N Blood chemistry[[id number]] Glucose [Mass/volume] in Serum or Plasma [2345-7] 12/17/2024 10:16 AM 184 mg/dL N Blood chemistry[[id number]] Glucose [Mass/volume] in Serum or Plasma [2345-7] 12/16/2024 05:25 PM 282 mg/dL N Blood chemistry[[id number]] Glucose [Mass/volume] in Serum or Plasma [2345-7] 12/16/2024 04:41 PM 319 mg/dL N Blood chemistry[[id number]] Glucose [Mass/volume] in Serum or Plasma [2345-7] 12/16/2024 04:21 PM 246 mg/dL N Blood chemistry[[id number]] Glucose [Mass/volume] in Serum or Plasma [2345-7] 12/16/2024 11:43 AM 227 mg/dL N Blood chemistry[[id number]] Glucose [Mass/volume] in Serum or Plasma [2345-7] 12/15/2024 05:36 PM 299 mg/dL N Blood chemistry[[id number]] Glucose [Mass/volume] in Serum or Plasma [2345-7] 12/15/2024 11:11 AM 217 mg/dL N Blood chemistry[[id number]] Glucose [Mass/volume] in Serum or Plasma [2345-7] 12/15/2024 10:06 AM 269 mg/dL N Blood chemistry[[id number]] Glucose [Mass/volume] in Serum or Plasma [2345-7] 12/14/2024 04:10 PM 272 mg/dL N Blood chemistry[[id number]] Glucose [Mass/volume] in Serum or Plasma [2345-7] 12/14/2024 12:50 PM 288 mg/dL N Blood chemistry[[id number]] Glucose [Mass/volume] in Serum or Plasma [2345-7] 12/14/2024 11:55 AM 197 mg/dL N Blood chemistry[[id number]] Glucose [Mass/volume] in Serum or Plasma [2345-7] 12/14/2024 09:30 AM 122 mg/dL N Blood chemistry[[id number]] Glucose [Mass/volume] in Serum or Plasma [2345-7] 12/13/2024 12:56 PM 347 mg/dL N Blood chemistry[[id number]] Glucose [Mass/volume] in Serum or Plasma [2345-7] 12/13/2024 12:20 PM 230 mg/dL N Blood chemistry[[id number]] Glucose [Mass/volume] in Serum or Plasma [2345-7] 12/13/2024 09:41 AM 230 mg/dL N Blood chemistry[[id number]] Glucose [Mass/volume] in Serum or Plasma [2345-7] 12/13/2024 06:22 AM 252 mg/dL N Blood chemistry[[id number]] Glucose [Mass/volume] in Serum or Plasma [2345-7] 12/12/2024 04:57 PM 316 mg/dL N Blood chemistry[[id number]] Glucose [Mass/volume] in Serum or Plasma [2345-7] 12/12/2024 02:25 PM 220 mg/dL N Blood chemistry[[id number]] Glucose [Mass/volume] in Serum or Plasma [2345-7] 12/12/2024 12:35 PM 268 mg/dL N Blood chemistry[[id number]] Glucose [Mass/volume] in Serum or Plasma [2345-7] 12/12/2024 09:46 AM 241 mg/dL N Blood chemistry[[id number]] Glucose [Mass/volume] in Serum or Plasma [2345-7] 12/11/2024 05:13 PM 295 mg/dL N Blood chemistry[[id number]] Glucose [Mass/volume] in Serum or Plasma [2345-7] 12/11/2024 02:20 PM 272 mg/dL N Blood chemistry[[id number]] Glucose [Mass/volume] in Serum or Plasma [2345-7] 12/11/2024 02:00 PM 284 mg/dL N Blood chemistry[[id number]] Glucose [Mass/volume] in Serum or Plasma [2345-7] 12/11/2024 10:22 AM 211 mg/dL N Blood chemistry[[id number]] Glucose [Mass/volume] in Serum or Plasma [2345-7] 12/10/2024 04:51 PM 232 mg/dL N Blood chemistry[[id number]] Glucose [Mass/volume] in Serum or Plasma [2345-7] 12/10/2024 04:10 PM 207 mg/dL N Blood chemistry[[id number]] Glucose [Mass/volume] in Serum or Plasma [2345-7] 12/10/2024 12:02 PM 275 mg/dL N Blood chemistry[[id number]] Glucose [Mass/volume] in Serum or Plasma [2345-7] 12/10/2024 09:31 AM 219 mg/dL N Blood chemistry[[id number]] Glucose [Mass/volume] in Serum or Plasma [2345-7] 12/09/2024 02:01 PM 246 mg/dL N Blood chemistry[[id number]] Glucose [Mass/volume] in Serum or Plasma [2345-7] 12/09/2024 12:13 PM 234 mg/dL N Blood chemistry[[id number]] Glucose [Mass/volume] in Serum or Plasma [2345-7] 12/09/2024 11:21 AM 224 mg/dL N Blood chemistry[[id number]] Glucose [Mass/volume] in Serum or Plasma [2345-7] 12/09/2024 11:19 AM 242 mg/dL N Blood chemistry[[id number]] Glucose [Mass/volume] in Serum or Plasma [2345-7] 12/09/2024 10:23 AM 170 mg/dL N Blood chemistry[[id number]] Glucose [Mass/volume] in Serum or Plasma [2345-7] 12/09/2024 07:09 AM 216 mg/dL N Blood chemistry[[id number]] Glucose [Mass/volume] in Serum or Plasma [2345-7] 12/08/2024 04:31 PM 218 mg/dL N Blood chemistry[[id number]] Glucose [Mass/volume] in Serum or Plasma [2345-7] 12/08/2024 12:13 PM 254 mg/dL N Blood chemistry[[id number]] Glucose [Mass/volume] in Serum or Plasma [2345-7] 12/07/2024 04:17 PM 292 mg/dL N Blood chemistry[[id number]] Glucose [Mass/volume] in Serum or Plasma [2345-7] 12/07/2024 04:02 PM 333 mg/dL N Blood chemistry[[id number]] Glucose [Mass/volume] in Serum or Plasma [2345-7] 12/07/2024 12:18 PM 287 mg/dL N Blood chemistry[[id number]] Glucose [Mass/volume] in Serum or Plasma [2345-7] 12/07/2024 09:39 AM 181 mg/dL N Blood chemistry[[id number]] Glucose [Mass/volume] in Serum or Plasma [2345-7] 12/06/2024 05:36 PM 369 mg/dL N Blood chemistry[[id number]] Glucose [Mass/volume] in Serum or Plasma [2345-7] 12/06/2024 03:45 PM 272 mg/dL N Blood chemistry[[id number]] Glucose [Mass/volume] in Serum or Plasma [2345-7] 12/06/2024 11:10 AM 257 mg/dL N Blood chemistry[[id number]] Glucose [Mass/volume] in Serum or Plasma [2345-7] 12/06/2024 09:31 AM 274 mg/dL N Blood chemistry[[id number]] Glucose [Mass/volume] in Serum or Plasma [2345-7] 12/05/2024 04:24 PM 296 mg/dL N Blood chemistry[[id number]] Glucose [Mass/volume] in Serum or Plasma [2345-7] 12/05/2024 12:44 PM 402 mg/dL N Blood chemistry[[id number]] Glucose [Mass/volume] in Serum or Plasma [2345-7] 12/05/2024 12:07 PM 360 mg/dL N Blood chemistry[[id number]] Glucose [Mass/volume] in Serum or Plasma [2345-7] 12/05/2024 09:31 AM 347 mg/dL N Blood chemistry[[id number]] Glucose [Mass/volume] in Serum or Plasma [2345-7] 12/04/2024 05:53 PM 318 mg/dL N Blood chemistry[[id number]] Glucose [Mass/volume] in Serum or Plasma [2345-7] 12/04/2024 12:23 PM 344 mg/dL N Blood chemistry[[id number]] Glucose [Mass/volume] in Serum or Plasma [2345-7] 12/04/2024 11:53 AM 351 mg/dL N Blood chemistry[[id number]] Glucose [Mass/volume] in Serum or Plasma [2345-7] 12/04/2024 10:33 AM 296 mg/dL N Blood chemistry[[id number]] Glucose [Mass/volume] in Serum or Plasma [2345-7] 12/03/2024 05:10 PM 378 mg/dL N Blood chemistry[[id number]] Glucose [Mass/volume] in Serum or Plasma [2345-7] 12/03/2024 02:06 PM 313 mg/dL N Blood chemistry[[id number]] Glucose [Mass/volume] in Serum or Plasma [2345-7] 12/03/2024 11:33 AM 294 mg/dL N Blood chemistry[[id number]] Glucose [Mass/volume] in Serum or Plasma [2345-7] 12/03/2024 11:01 AM 284 mg/dL N Blood chemistry[[id number]] Glucose [Mass/volume] in Serum or Plasma [2345-7] 12/02/2024 04:52 PM 458 mg/dL N Blood chemistry[[id number]] Glucose [Mass/volume] in Serum or Plasma [2345-7] 12/02/2024 02:27 PM 334 mg/dL N Blood chemistry[[id number]] Glucose [Mass/volume] in Serum or Plasma [2345-7] 12/02/2024 11:52 AM 332 mg/dL N Blood chemistry[[id number]] Glucose [Mass/volume] in Serum or Plasma [2345-7] 12/02/2024 09:53 AM 271 mg/dL N Blood chemistry[[id number]] Glucose [Mass/volume] in Serum or Plasma [2345-7] 12/01/2024 04:27 PM 274 mg/dL N Blood chemistry[[id number]] Glucose [Mass/volume] in Serum or Plasma [2345-7] 12/01/2024 02:22 PM 313 mg/dL N Blood chemistry[[id number]] Glucose [Mass/volume] in Serum or Plasma [2345-7] 12/01/2024 01:34 PM 281 mg/dL N Blood chemistry[[id number]] Glucose [Mass/volume] in Serum or Plasma [2345-7] 12/01/2024 09:45 AM 256 mg/dL N Blood chemistry[[id number]] Glucose [Mass/volume] in Serum or Plasma [2345-7] 11/30/2024 04:11 PM 453 mg/dL N Blood chemistry[[id number]] Glucose [Mass/volume] in Serum or Plasma [2345-7] 11/30/2024 12:21 PM 297 mg/dL N Blood chemistry[[id number]] Glucose [Mass/volume] in Serum or Plasma [2345-7] 11/30/2024 12:20 PM 357 mg/dL N Blood chemistry[[id number]] Glucose [Mass/volume] in Serum or Plasma [2345-7] 11/30/2024 10:39 AM 271 mg/dL N Blood chemistry[[id number]] Glucose [Mass/volume] in Serum or Plasma [2345-7] 11/29/2024 05:53 PM 312 mg/dL N Blood chemistry[[id number]] Glucose [Mass/volume] in Serum or Plasma [2345-7] 11/29/2024 12:06 PM 420 mg/dL N Blood chemistry[[id number]] Glucose [Mass/volume] in Serum or Plasma [2345-7] 11/29/2024 11:39 AM 325 mg/dL N Blood chemistry[[id number]] Glucose [Mass/volume] in Serum or Plasma [2345-7] 11/29/2024 10:08 AM 209 mg/dL N Blood chemistry[[id number]] Glucose [Mass/volume] in Serum or Plasma [2345-7] 11/28/2024 11:52 AM 347 mg/dL N Blood chemistry[[id number]] Glucose [Mass/volume] in Serum or Plasma [2345-7] 11/28/2024 11:35 AM 378 mg/dL N Blood chemistry[[id number]] Glucose [Mass/volume] in Serum or Plasma [2345-7] 11/28/2024 10:40 AM 320 mg/dL N Blood chemistry[[id number]] Glucose [Mass/volume] in Serum or Plasma [2345-7] 11/28/2024 06:20 AM 355 mg/dL N Blood chemistry[[id number]] Glucose [Mass/volume] in Serum or Plasma [2345-7] 11/27/2024 12:52 PM 321 mg/dL N Blood chemistry[[id number]] Glucose [Mass/volume] in Serum or Plasma [2345-7] 11/27/2024 12:07 PM 417 mg/dL N Blood chemistry[[id number]] Glucose [Mass/volume] in Serum or Plasma [2345-7] 11/27/2024 10:33 AM 343 mg/dL N Blood chemistry[[id number]] Glucose [Mass/volume] in Serum or Plasma [2345-7] 11/27/2024 06:01 AM 431 mg/dL N Blood chemistry[[id number]] Glucose [Mass/volume] in Serum or Plasma [2345-7] 11/26/2024 04:18 PM 298 mg/dL N Blood chemistry[[id number]] Glucose [Mass/volume] in Serum or Plasma [2345-7] 11/26/2024 11:59 AM 262 mg/dL N Blood chemistry[[id number]] Glucose [Mass/volume] in Serum or Plasma [2345-7] 11/26/2024 11:31 AM 307 mg/dL N Blood chemistry[[id number]] Glucose [Mass/volume] in Serum or Plasma [2345-7] 11/26/2024 09:38 AM 214 mg/dL N Blood chemistry[[id number]] Glucose [Mass/volume] in Serum or Plasma [2345-7] 11/25/2024 04:33 PM 237 mg/dL N Blood chemistry[[id number]] Glucose [Mass/volume] in Serum or Plasma [2345-7] 11/25/2024 12:02 PM 284 mg/dL N Blood chemistry[[id number]] Glucose [Mass/volume] in Serum or Plasma [2345-7] 11/25/2024 12:01 PM 310 mg/dL N Blood chemistry[[id number]] Glucose [Mass/volume] in Serum or Plasma [2345-7] 11/25/2024 10:11 AM 235 mg/dL N Blood chemistry[[id number]] Glucose [Mass/volume] in Serum or Plasma [2345-7] 11/24/2024 04:46 PM 387 mg/dL N Blood chemistry[[id number]] Glucose [Mass/volume] in Serum or Plasma [2345-7] 11/24/2024 12:56 PM 318 mg/dL N Blood chemistry[[id number]] Glucose [Mass/volume] in Serum or Plasma [2345-7] 11/24/2024 12:15 PM 413 mg/dL N Blood chemistry[[id number]] Glucose [Mass/volume] in Serum or Plasma [2345-7] 11/24/2024 09:49 AM 283 mg/dL N Blood chemistry[[id number]] Glucose [Mass/volume] in Serum or Plasma [2345-7] 11/23/2024 04:24 PM 343 mg/dL N Blood chemistry[[id number]] Glucose [Mass/volume] in Serum or Plasma [2345-7] 11/23/2024 01:38 PM 448 mg/dL N Blood chemistry[[id number]] Glucose [Mass/volume] in Serum or Plasma [2345-7] 11/23/2024 12:06 PM 393 mg/dL N Blood chemistry[[id number]] Glucose [Mass/volume] in Serum or Plasma [2345-7] 11/23/2024 09:39 AM 280 mg/dL N Blood chemistry[[id number]] Glucose [Mass/volume] in Serum or Plasma [2345-7] 11/23/2024 07:49 AM 473 mg/dL N Blood chemistry[[id number]] Glucose [Mass/volume] in Serum or Plasma [2345-7] 11/22/2024 04:14 PM 444 mg/dL N Blood chemistry[[id number]] Glucose [Mass/volume] in Serum or Plasma [2345-7] 11/22/2024 09:15 AM 346 mg/dL N Blood chemistry[[id number]] Glucose [Mass/volume] in Serum or Plasma [2345-7] 11/21/2024 05:34 PM 404 mg/dL N Blood chemistry[[id number]] Glucose [Mass/volume] in Serum or Plasma [2345-7] 11/21/2024 02:12 PM 387 mg/dL N Blood chemistry[[id number]] Glucose [Mass/volume] in Serum or Plasma [2345-7] 11/21/2024 12:40 PM 362 mg/dL N Blood chemistry[[id number]] Glucose [Mass/volume] in Serum or Plasma [2345-7] 11/20/2024 04:18 PM 409 mg/dL N Blood chemistry[[id number]] Glucose [Mass/volume] in Serum or Plasma [2345-7] 11/20/2024 03:42 PM 423 mg/dL N Blood chemistry[[id number]] Glucose [Mass/volume] in Serum or Plasma [2345-7] 11/20/2024 01:02 PM 316 mg/dL N Blood chemistry[[id number]] Glucose [Mass/volume] in Serum or Plasma [2345-7] 11/20/2024 10:02 AM 337 mg/dL N Blood chemistry[[id number]] Glucose [Mass/volume] in Serum or Plasma [2345-7] 11/19/2024 04:31 PM 353 mg/dL N Blood chemistry[[id number]] Glucose [Mass/volume] in Serum or Plasma [2345-7] 11/19/2024 01:50 PM 344 mg/dL N Blood chemistry[[id number]] Glucose [Mass/volume] in Serum or Plasma [2345-7] 11/19/2024 11:55 AM 291 mg/dL N Blood chemistry[[id number]] Glucose [Mass/volume] in Serum or Plasma [2345-7] 11/19/2024 09:50 AM 275 mg/dL N Blood chemistry[[id number]] Glucose [Mass/volume] in Serum or Plasma [2345-7] 11/18/2024 04:25 PM 243 mg/dL N Blood chemistry[[id number]] Glucose [Mass/volume] in Serum or Plasma [2345-7] 11/18/2024 02:45 PM 334 mg/dL N Blood chemistry[[id number]] Glucose [Mass/volume] in Serum or Plasma [2345-7] 11/18/2024 11:50 AM 275 mg/dL N Blood chemistry[[id number]] Glucose [Mass/volume] in Serum or Plasma [2345-7] 11/18/2024 09:47 AM 231 mg/dL N Blood chemistry[[id number]] Glucose [Mass/volume] in Serum or Plasma [2345-7] 11/17/2024 04:03 PM 342 mg/dL N Blood chemistry[[id number]] Glucose [Mass/volume] in Serum or Plasma [2345-7] 11/17/2024 02:16 PM 226 mg/dL N Blood chemistry[[id number]] Glucose [Mass/volume] in Serum or Plasma [2345-7] 11/17/2024 11:07 AM 245 mg/dL N Blood chemistry[[id number]] Glucose [Mass/volume] in Serum or Plasma [2345-7] 11/17/2024 10:27 AM 234 mg/dL N Blood chemistry[[id number]] Glucose [Mass/volume] in Serum or Plasma [2345-7] 11/16/2024 05:49 PM 253 mg/dL N Blood chemistry[[id number]] Glucose [Mass/volume] in Serum or Plasma [2345-7] 11/16/2024 02:38 PM 312 mg/dL N Blood chemistry[[id number]] Glucose [Mass/volume] in Serum or Plasma [2345-7] 11/16/2024 12:25 PM 186 mg/dL N Blood chemistry[[id number]] Glucose [Mass/volume] in Serum or Plasma [2345-7] 11/16/2024 09:45 AM 200 mg/dL N Blood chemistry[[id number]] Glucose [Mass/volume] in Serum or Plasma [2345-7] 11/15/2024 04:15 PM 300 mg/dL N Blood chemistry[[id number]] Glucose [Mass/volume] in Serum or Plasma [2345-7] 11/15/2024 04:12 PM 284 mg/dL N Blood chemistry[[id number]] Glucose [Mass/volume] in Serum or Plasma [2345-7] 11/15/2024 01:50 PM 289 mg/dL N Blood chemistry[[id number]] Glucose [Mass/volume] in Serum or Plasma [2345-7] 11/15/2024 10:18 AM 172 mg/dL N Blood chemistry[[id number]] Glucose [Mass/volume] in Serum or Plasma [2345-7] 11/14/2024 04:54 PM 323 mg/dL N Blood chemistry[[id number]] Glucose [Mass/volume] in Serum or Plasma [2345-7] 11/14/2024 12:16 PM 349 mg/dL N Blood chemistry[[id number]] Glucose [Mass/volume] in Serum or Plasma [2345-7] 11/14/2024 12:08 PM 303 mg/dL N Blood chemistry[[id number]] Glucose [Mass/volume] in Serum or Plasma [2345-7] 11/14/2024 09:32 AM 282 mg/dL N Blood chemistry[[id number]] Glucose [Mass/volume] in Serum or Plasma [2345-7] 11/14/2024 06:35 AM 220 mg/dL N Blood chemistry[[id number]] Glucose [Mass/volume] in Serum or Plasma [2345-7] 11/13/2024 03:49 PM 314 mg/dL N Blood chemistry[[id number]] Glucose [Mass/volume] in Serum or Plasma [2345-7] 11/13/2024 01:25 PM 219 mg/dL N Blood chemistry[[id number]] Glucose [Mass/volume] in Serum or Plasma [2345-7] 11/13/2024 09:39 AM 240 mg/dL N Blood chemistry[[id number]] Glucose [Mass/volume] in Serum or Plasma [2345-7] 11/12/2024 03:56 PM 225 mg/dL N Blood chemistry[[id number]] Glucose [Mass/volume] in Serum or Plasma [2345-7] 11/12/2024 11:57 AM 249 mg/dL N Blood chemistry[[id number]] Glucose [Mass/volume] in Serum or Plasma [2345-7] 11/12/2024 09:32 AM 200 mg/dL N Blood chemistry[[id number]] Glucose [Mass/volume] in Serum or Plasma [2345-7] 11/12/2024 06:07 AM 284 mg/dL N Blood chemistry[[id number]] Glucose [Mass/volume] in Serum or Plasma [2345-7] 11/11/2024 05:46 PM 378 mg/dL N Blood chemistry[[id number]] Glucose [Mass/volume] in Serum or Plasma [2345-7] 11/11/2024 04:28 PM 243 mg/dL N Blood chemistry[[id number]] Glucose [Mass/volume] in Serum or Plasma [2345-7] 11/11/2024 02:21 PM 224 mg/dL N Blood chemistry[[id number]] Glucose [Mass/volume] in Serum or Plasma [2345-7] 11/11/2024 11:57 AM 240 mg/dL N Blood chemistry[[id number]] Glucose [Mass/volume] in Serum or Plasma [2345-7] 11/11/2024 09:41 AM 223 mg/dL N Blood chemistry[[id number]] Glucose [Mass/volume] in Serum or Plasma [2345-7] 11/10/2024 04:49 PM 348 mg/dL N Blood chemistry[[id number]] Glucose [Mass/volume] in Serum or Plasma [2345-7] 11/10/2024 11:53 AM 276 mg/dL N Blood chemistry[[id number]] Glucose [Mass/volume] in Serum or Plasma [2345-7] 11/10/2024 09:58 AM 188 mg/dL N Blood chemistry[[id number]] Glucose [Mass/volume] in Serum or Plasma [2345-7] 11/09/2024 04:20 PM 280 mg/dL N Blood chemistry[[id number]] Glucose [Mass/volume] in Serum or Plasma [2345-7] 11/09/2024 02:08 PM 315 mg/dL N Blood chemistry[[id number]] Glucose [Mass/volume] in Serum or Plasma [2345-7] 11/09/2024 11:53 AM 322 mg/dL N Blood chemistry[[id number]] Glucose [Mass/volume] in Serum or Plasma [2345-7] 11/09/2024 09:38 AM 370 mg/dL N Blood chemistry[[id number]] Glucose [Mass/volume] in Serum or Plasma [2345-7] 11/08/2024 05:24 PM 438 mg/dL N Blood chemistry[[id number]] Glucose [Mass/volume] in Serum or Plasma [2345-7] 11/08/2024 12:09 PM 253 mg/dL N Blood chemistry[[id number]] Glucose [Mass/volume] in Serum or Plasma [2345-7] 11/08/2024 09:26 AM 333 mg/dL N Blood chemistry[[id number]] Glucose [Mass/volume] in Serum or Plasma [2345-7] 11/07/2024 04:38 PM 344 mg/dL N Blood chemistry[[id number]] Glucose [Mass/volume] in Serum or Plasma [2345-7] 11/07/2024 01:29 PM 273 mg/dL N Blood chemistry[[id number]] Glucose [Mass/volume] in Serum or Plasma [2345-7] 11/07/2024 01:07 PM 351 mg/dL N Blood chemistry[[id number]] Glucose [Mass/volume] in Serum or Plasma [2345-7] 11/07/2024 10:23 AM 282 mg/dL N Blood chemistry[[id number]] Glucose [Mass/volume] in Serum or Plasma [2345-7] 11/06/2024 05:43 PM 419 mg/dL N Blood chemistry[[id number]] Glucose [Mass/volume] in Serum or Plasma [2345-7] 11/06/2024 01:45 PM 349 mg/dL N Blood chemistry[[id number]] Glucose [Mass/volume] in Serum or Plasma [2345-7] 11/06/2024 01:09 PM 365 mg/dL N Blood chemistry[[id number]] Glucose [Mass/volume] in Serum or Plasma [2345-7] 11/06/2024 10:34 AM 404 mg/dL N Blood chemistry[[id number]] Glucose [Mass/volume] in Serum or Plasma [2345-7] 11/05/2024 03:59 PM 347 mg/dL N Blood chemistry[[id number]] Glucose [Mass/volume] in Serum or Plasma [2345-7] 11/05/2024 02:14 PM 200 mg/dL N Blood chemistry[[id number]] Glucose [Mass/volume] in Serum or Plasma [2345-7] 11/05/2024 10:43 AM 200 mg/dL N Blood chemistry[[id number]] Glucose [Mass/volume] in Serum or Plasma [2345-7] 11/05/2024 09:09 AM 343 mg/dL N Blood chemistry[[id number]] Glucose [Mass/volume] in Serum or Plasma [2345-7] 11/04/2024 05:04 PM 287 mg/dL N Blood chemistry[[id number]] Glucose [Mass/volume] in Serum or Plasma [2345-7] 11/04/2024 01:45 PM 469 mg/dL N Blood chemistry[[id number]] Glucose [Mass/volume] in Serum or Plasma [2345-7] 11/04/2024 10:46 AM 144 mg/dL N Blood chemistry[[id number]] Glucose [Mass/volume] in Serum or Plasma [2345-7] 11/04/2024 10:29 AM 324 mg/dL N Blood chemistry[[id number]] Glucose [Mass/volume] in Serum or Plasma [2345-7] 11/03/2024 04:25 PM 329 mg/dL N Blood chemistry[[id number]] Glucose [Mass/volume] in Serum or Plasma [2345-7] 11/03/2024 01:55 PM 311 mg/dL N Blood chemistry[[id number]] Glucose [Mass/volume] in Serum or Plasma [2345-7] 11/03/2024 11:11 AM 234 mg/dL N Blood chemistry[[id number]] Glucose [Mass/volume] in Serum or Plasma [2345-7] 11/03/2024 10:29 AM 199 mg/dL N Blood chemistry[[id number]] Glucose [Mass/volume] in Serum or Plasma [2345-7] 11/02/2024 04:17 PM 407 mg/dL N Blood chemistry[[id number]] Glucose [Mass/volume] in Serum or Plasma [2345-7] 11/02/2024 12:35 PM 356 mg/dL N Blood chemistry[[id number]] Glucose [Mass/volume] in Serum or Plasma [2345-7] 11/02/2024 12:14 PM 234 mg/dL N Blood chemistry[[id number]] Glucose [Mass/volume] in Serum or Plasma [2345-7] 11/02/2024 10:38 AM 341 mg/dL N Blood chemistry[[id number]] Glucose [Mass/volume] in Serum or Plasma [2345-7] 11/01/2024 03:54 PM 416 mg/dL N Blood chemistry[[id number]] Glucose [Mass/volume] in Serum or Plasma [2345-7] 11/01/2024 12:01 PM 343 mg/dL N Blood chemistry[[id number]] Glucose [Mass/volume] in Serum or Plasma [2345-7] 11/01/2024 11:56 AM 366 mg/dL N Blood chemistry[[id number]] Glucose [Mass/volume] in Serum or Plasma [2345-7] 11/01/2024 09:17 AM 382 mg/dL N Blood chemistry[[id number]] Glucose [Mass/volume] in Serum or Plasma [2345-7] 10/31/2024 04:29 PM 365 mg/dL N Blood chemistry[[id number]] Glucose [Mass/volume] in Serum or Plasma [2345-7] 10/31/2024 12:49 PM 431 mg/dL N Blood chemistry[[id number]] Glucose [Mass/volume] in Serum or Plasma [2345-7] 10/31/2024 12:31 PM 292 mg/dL N Blood chemistry[[id number]] Glucose [Mass/volume] in Serum or Plasma [2345-7] 10/31/2024 09:30 AM 430 mg/dL N Blood chemistry[[id number]] Glucose [Mass/volume] in Serum or Plasma [2345-7] 10/30/2024 04:42 PM 395 mg/dL N Blood chemistry[[id number]] Glucose [Mass/volume] in Serum or Plasma [2345-7] 10/30/2024 12:57 PM 400 mg/dL N Blood chemistry[[id number]] Glucose [Mass/volume] in Serum or Plasma [2345-7] 10/30/2024 12:53 PM 379 mg/dL N Blood chemistry[[id number]] Glucose [Mass/volume] in Serum or Plasma [2345-7] 10/30/2024 09:57 AM 373 mg/dL N Blood chemistry[[id number]] Glucose [Mass/volume] in Serum or Plasma [2345-7] 10/29/2024 04:17 PM 386 mg/dL N Blood chemistry[[id number]] Glucose [Mass/volume] in Serum or Plasma [2345-7] 10/29/2024 01:49 PM 304 mg/dL N Blood chemistry[[id number]] Glucose [Mass/volume] in Serum or Plasma [2345-7] 10/29/2024 12:00 PM 333 mg/dL N Blood chemistry[[id number]] Glucose [Mass/volume] in Serum or Plasma [2345-7] 10/29/2024 09:42 AM 353 mg/dL N Blood chemistry[[id number]] Glucose [Mass/volume] in Serum or Plasma [2345-7] 10/28/2024 04:30 PM 404 mg/dL N Blood chemistry[[id number]] Glucose [Mass/volume] in Serum or Plasma [2345-7] 10/28/2024 01:02 PM 397 mg/dL N Blood chemistry[[id number]] Glucose [Mass/volume] in Serum or Plasma [2345-7] 10/28/2024 12:00 PM 330 mg/dL N Blood chemistry[[id number]] Glucose [Mass/volume] in Serum or Plasma [2345-7] 10/28/2024 09:35 AM 385 mg/dL N Blood chemistry[[id number]] Glucose [Mass/volume] in Serum or Plasma [2345-7] 10/27/2024 04:30 PM 452 mg/dL N Blood chemistry[[id number]] Glucose [Mass/volume] in Serum or Plasma [2345-7] 10/27/2024 03:06 PM 377 mg/dL N Blood chemistry[[id number]] Glucose [Mass/volume] in Serum or Plasma [2345-7] 10/27/2024 12:19 PM 313 mg/dL N Blood chemistry[[id number]] Glucose [Mass/volume] in Serum or Plasma [2345-7] 10/27/2024 09:35 AM 480 mg/dL N Blood chemistry[[id number]] Glucose [Mass/volume] in Serum or Plasma [2345-7] 10/26/2024 04:29 PM 368 mg/dL N Blood chemistry[[id number]] Glucose [Mass/volume] in Serum or Plasma [2345-7] 10/26/2024 02:00 PM 387 mg/dL N Blood chemistry[[id number]] Glucose [Mass/volume] in Serum or Plasma [2345-7] 10/26/2024 12:49 PM 272 mg/dL N Blood chemistry[[id number]] Glucose [Mass/volume] in Serum or Plasma [2345-7] 10/26/2024 09:29 AM 317 mg/dL N Blood chemistry[[id number]] Glucose [Mass/volume] in Serum or Plasma [2345-7] 10/25/2024 04:35 PM 476 mg/dL N Blood chemistry[[id number]] Glucose [Mass/volume] in Serum or Plasma [2345-7] 10/25/2024 01:08 PM 359 mg/dL N Blood chemistry[[id number]] Glucose [Mass/volume] in Serum or Plasma [2345-7] 10/25/2024 12:09 PM 372 mg/dL N Blood chemistry[[id number]] Glucose [Mass/volume] in Serum or Plasma [2345-7] 10/25/2024 09:51 AM 340 mg/dL N Blood chemistry[[id number]] Glucose [Mass/volume] in Serum or Plasma [2345-7] 10/25/2024 06:34 AM 400 mg/dL N Blood chemistry[[id number]] Glucose [Mass/volume] in Serum or Plasma [2345-7] 10/24/2024 05:36 PM 366 mg/dL N Blood chemistry[[id number]] Glucose [Mass/volume] in Serum or Plasma [2345-7] 10/24/2024 01:44 PM 268 mg/dL N Blood chemistry[[id number]] Glucose [Mass/volume] in Serum or Plasma [2345-7] 10/24/2024 10:06 AM 374 mg/dL N Blood chemistry[[id number]] Glucose [Mass/volume] in Serum or Plasma [2345-7] 10/23/2024 05:21 PM 380 mg/dL N Blood chemistry[[id number]] Glucose [Mass/volume] in Serum or Plasma [2345-7] 10/23/2024 11:39 AM 299 mg/dL N Blood chemistry[[id number]] Glucose [Mass/volume] in Serum or Plasma [2345-7] 10/23/2024 11:29 AM 396 mg/dL N Blood chemistry[[id number]] Glucose [Mass/volume] in Serum or Plasma [2345-7] 10/23/2024 10:56 AM 390 mg/dL N Blood chemistry[[id number]] Glucose [Mass/volume] in Serum or Plasma [2345-7] 10/22/2024 03:53 PM 495 mg/dL N Blood chemistry[[id number]] Glucose [Mass/volume] in Serum or Plasma [2345-7] 10/22/2024 03:31 PM 244 mg/dL N Blood chemistry[[id number]] Glucose [Mass/volume] in Serum or Plasma [2345-7] 10/22/2024 01:55 PM 252 mg/dL N Blood chemistry[[id number]] Glucose [Mass/volume] in Serum or Plasma [2345-7] 10/22/2024 09:26 AM 373 mg/dL N Blood chemistry[[id number]] Glucose [Mass/volume] in Serum or Plasma [2345-7] 10/21/2024 04:02 PM 328 mg/dL N Blood chemistry[[id number]] Glucose [Mass/volume] in Serum or Plasma [2345-7] 10/21/2024 03:19 PM 278 mg/dL N Blood chemistry[[id number]] Glucose [Mass/volume] in Serum or Plasma [2345-7] 10/21/2024 12:57 PM 275 mg/dL N Blood chemistry[[id number]] Glucose [Mass/volume] in Serum or Plasma [2345-7] 10/21/2024 09:08 AM 402 mg/dL N Blood chemistry[[id number]] Glucose [Mass/volume] in Serum or Plasma [2345-7] 10/20/2024 05:07 PM 343 mg/dL N Blood chemistry[[id number]] Glucose [Mass/volume] in Serum or Plasma [2345-7] 10/20/2024 11:49 AM 285 mg/dL N Blood chemistry[[id number]] Glucose [Mass/volume] in Serum or Plasma [2345-7] 10/20/2024 09:55 AM 407 mg/dL N Blood chemistry[[id number]] Glucose [Mass/volume] in Serum or Plasma [2345-7] 10/19/2024 04:29 PM 373 mg/dL N Blood chemistry[[id number]] Glucose [Mass/volume] in Serum or Plasma [2345-7] 10/19/2024 01:43 PM 376 mg/dL N Blood chemistry[[id number]] Glucose [Mass/volume] in Serum or Plasma [2345-7] 10/19/2024 11:46 AM 119 mg/dL N Blood chemistry[[id number]] Glucose [Mass/volume] in Serum or Plasma [2345-7] 10/19/2024 08:46 AM 383 mg/dL N Blood chemistry[[id number]] Glucose [Mass/volume] in Serum or Plasma [2345-7] 10/19/2024 06:03 AM 304 mg/dL N Blood chemistry[[id number]] Glucose [Mass/volume] in Serum or Plasma [2345-7] 10/18/2024 03:29 PM 440 mg/dL N Blood chemistry[[id number]] Glucose [Mass/volume] in Serum or Plasma [2345-7] 10/18/2024 10:49 AM 276 mg/dL N Blood chemistry[[id number]] Glucose [Mass/volume] in Serum or Plasma [2345-7] 10/18/2024 08:26 AM 331 mg/dL N Blood chemistry[[id number]] Glucose [Mass/volume] in Serum or Plasma [2345-7] 10/17/2024 03:44 PM 425 mg/dL N Blood chemistry[[id number]] Glucose [Mass/volume] in Serum or Plasma [2345-7] 10/17/2024 12:48 PM 415 mg/dL N Blood chemistry[[id number]] Glucose [Mass/volume] in Serum or Plasma [2345-7] 10/17/2024 11:31 AM 281 mg/dL N Blood chemistry[[id number]] Glucose [Mass/volume] in Serum or Plasma [2345-7] 10/17/2024 09:38 AM 318 mg/dL N Blood chemistry[[id number]] Glucose [Mass/volume] in Serum or Plasma [2345-7] 10/17/2024 08:55 AM 430 mg/dL N Blood chemistry[[id number]] Glucose [Mass/volume] in Serum or Plasma [2345-7] 10/16/2024 05:18 PM 358 mg/dL N Blood chemistry[[id number]] Glucose [Mass/volume] in Serum or Plasma [2345-7] 10/16/2024 12:06 PM 336 mg/dL N Blood chemistry[[id number]] Glucose [Mass/volume] in Serum or Plasma [2345-7] 10/16/2024 10:19 AM 357 mg/dL N Blood chemistry[[id number]] Glucose [Mass/volume] in Serum or Plasma [2345-7] 10/15/2024 04:04 PM 361 mg/dL N Blood chemistry[[id number]] Glucose [Mass/volume] in Serum or Plasma [2345-7] 10/15/2024 01:29 PM 400 mg/dL N Blood chemistry[[id number]] Glucose [Mass/volume] in Serum or Plasma [2345-7] 10/15/2024 12:13 PM 239 mg/dL N Blood chemistry[[id number]] Glucose [Mass/volume] in Serum or Plasma [2345-7] 10/15/2024 10:27 AM 328 mg/dL N Blood chemistry[[id number]] Glucose [Mass/volume] in Serum or Plasma [2345-7] 10/14/2024 03:52 PM 311 mg/dL N Blood chemistry[[id number]] Glucose [Mass/volume] in Serum or Plasma [2345-7] 10/14/2024 02:41 PM 400 mg/dL N Blood chemistry[[id number]] Glucose [Mass/volume] in Serum or Plasma [2345-7] 10/14/2024 11:04 AM 270 mg/dL N Blood chemistry[[id number]] Glucose [Mass/volume] in Serum or Plasma [2345-7] 10/14/2024 09:16 AM 381 mg/dL N Blood chemistry[[id number]] Glucose [Mass/volume] in Serum or Plasma [2345-7] 10/14/2024 06:07 AM 386 mg/dL N Blood chemistry[[id number]] Glucose [Mass/volume] in Serum or Plasma [2345-7] 10/13/2024 11:48 AM 266 mg/dL N Blood chemistry[[id number]] Glucose [Mass/volume] in Serum or Plasma [2345-7] 10/13/2024 10:39 AM 318 mg/dL N Blood chemistry[[id number]] Glucose [Mass/volume] in Serum or Plasma [2345-7] 10/13/2024 06:02 AM 395 mg/dL N Blood chemistry[[id number]] Glucose [Mass/volume] in Serum or Plasma [2345-7] 10/12/2024 05:06 PM 278 mg/dL N Blood chemistry[[id number]] Glucose [Mass/volume] in Serum or Plasma [2345-7] 10/12/2024 12:30 PM 297 mg/dL N Blood chemistry[[id number]] Glucose [Mass/volume] in Serum or Plasma [2345-7] 10/12/2024 11:36 AM 249 mg/dL N Blood chemistry[[id number]] Glucose [Mass/volume] in Serum or Plasma [2345-7] 10/12/2024 09:50 AM 223 mg/dL N Blood chemistry[[id number]] Glucose [Mass/volume] in Serum or Plasma [2345-7] 10/11/2024 03:49 PM 400 mg/dL N Blood chemistry[[id number]] Glucose [Mass/volume] in Serum or Plasma [2345-7] 10/11/2024 01:42 PM 255 mg/dL N Blood chemistry[[id number]] Glucose [Mass/volume] in Serum or Plasma [2345-7] 10/11/2024 10:25 AM 400 mg/dL N Blood chemistry[[id number]] Glucose [Mass/volume] in Serum or Plasma [2345-7] 10/11/2024 09:59 AM 315 mg/dL N Blood chemistry[[id number]] Glucose [Mass/volume] in Serum or Plasma [2345-7] 10/11/2024 06:01 AM 267 mg/dL N Blood chemistry[[id number]] Glucose [Mass/volume] in Serum or Plasma [2345-7] 10/10/2024 04:02 PM 304 mg/dL N Blood chemistry[[id number]] Glucose [Mass/volume] in Serum or Plasma [2345-7] 10/10/2024 12:57 PM 167 mg/dL N Blood chemistry[[id number]] Glucose [Mass/volume] in Serum or Plasma [2345-7] 10/10/2024 09:43 AM 268 mg/dL N Blood chemistry[[id number]] Glucose [Mass/volume] in Serum or Plasma [2345-7] 10/09/2024 04:25 PM 296 mg/dL N Blood chemistry[[id number]] Glucose [Mass/volume] in Serum or Plasma [2345-7] 10/09/2024 12:41 PM 316 mg/dL N Blood chemistry[[id number]] Glucose [Mass/volume] in Serum or Plasma [2345-7] 10/09/2024 12:22 PM 218 mg/dL N Blood chemistry[[id number]] Glucose [Mass/volume] in Serum or Plasma [2345-7] 10/09/2024 09:38 AM 278 mg/dL N Blood chemistry[[id number]] Glucose [Mass/volume] in Serum or Plasma [2345-7] 10/08/2024 04:27 PM 317 mg/dL N Blood chemistry[[id number]] Glucose [Mass/volume] in Serum or Plasma [2345-7] 10/08/2024 02:58 PM 287 mg/dL N Blood chemistry[[id number]] Glucose [Mass/volume] in Serum or Plasma [2345-7] 10/08/2024 12:36 PM 171 mg/dL N Blood chemistry[[id number]] Glucose [Mass/volume] in Serum or Plasma [2345-7] 10/08/2024 09:57 AM 229 mg/dL N Blood chemistry[[id number]] Glucose [Mass/volume] in Serum or Plasma [2345-7] 10/07/2024 02:00 PM 375 mg/dL N Blood chemistry[[id number]] Glucose [Mass/volume] in Serum or Plasma [2345-7] 10/07/2024 09:23 AM 268 mg/dL N Blood chemistry[[id number]] Glucose [Mass/volume] in Serum or Plasma [2345-7] 09/04/2024 04:52 PM 350 mg/dL N Blood chemistry[[id number]] Glucose [Mass/volume] in Serum or Plasma [2345-7] 09/04/2024 09:48 AM 315 mg/dL N Blood chemistry[[id number]] Glucose [Mass/volume] in Serum or Plasma [2345-7] 09/04/2024 01:44 PM 210 mg/dL N Blood chemistry[[id number]] Glucose [Mass/volume] in Serum or Plasma [2345-7] 09/03/2024 12:26 PM 203 mg/dL N Blood chemistry[[id number]] Glucose [Mass/volume] in Serum or Plasma [2345-7] 09/03/2024 04:09 PM 214 mg/dL N Blood chemistry[[id number]] Glucose [Mass/volume] in Serum or Plasma [2345-7] 09/03/2024 09:20 AM 248 mg/dL N Blood chemistry[[id number]] Glucose [Mass/volume] in Serum or Plasma [2345-7] 09/03/2024 12:12 PM 214 mg/dL N Blood chemistry[[id number]] Glucose [Mass/volume] in Serum or Plasma [2345-7] 09/02/2024 01:54 PM 281 mg/dL N Blood chemistry[[id number]] Glucose [Mass/volume] in Serum or Plasma [2345-7] 09/02/2024 09:27 AM 197 mg/dL N Blood chemistry[[id number]] Glucose [Mass/volume] in Serum or Plasma [2345-7] 09/02/2024 06:51 AM 233 mg/dL N Blood chemistry[[id number]] Glucose [Mass/volume] in Serum or Plasma [2345-7] 09/02/2024 12:11 PM 244 mg/dL N Blood chemistry[[id number]] Glucose [Mass/volume] in Serum or Plasma [2345-7] 09/01/2024 01:59 PM 235 mg/dL N Blood chemistry[[id number]] Glucose [Mass/volume] in Serum or Plasma [2345-7] 09/01/2024 04:37 PM 282 mg/dL N Blood chemistry[[id number]] Glucose [Mass/volume] in Serum or Plasma [2345-7] 09/01/2024 09:36 AM 415 mg/dL N Blood chemistry[[id number]] Glucose [Mass/volume] in Serum or Plasma [2345-7] 09/01/2024 11:55 AM 248 mg/dL N Blood chemistry[[id number]] Glucose [Mass/volume] in Serum or Plasma [2345-7] 08/31/2024 01:10 PM 331 mg/dL N Blood chemistry[[id number]] Glucose [Mass/volume] in Serum or Plasma [2345-7] 08/31/2024 04:23 PM 243 mg/dL N Blood chemistry[[id number]] Glucose [Mass/volume] in Serum or Plasma [2345-7] 08/31/2024 09:45 AM 178 mg/dL N Blood chemistry[[id number]] Glucose [Mass/volume] in Serum or Plasma [2345-7] 08/31/2024 12:00 PM 237 mg/dL N Blood chemistry[[id number]] Glucose [Mass/volume] in Serum or Plasma [2345-7] 08/30/2024 12:19 PM 371 mg/dL N Blood chemistry[[id number]] Glucose [Mass/volume] in Serum or Plasma [2345-7] 08/30/2024 04:37 PM 312 mg/dL N Blood chemistry[[id number]] Glucose [Mass/volume] in Serum or Plasma [2345-7] 08/30/2024 09:12 AM 267 mg/dL N Blood chemistry[[id number]] Glucose [Mass/volume] in Serum or Plasma [2345-7] 08/30/2024 10:56 AM 248 mg/dL N Blood chemistry[[id number]] Glucose [Mass/volume] in Serum or Plasma [2345-7] 08/29/2024 02:16 PM 400 mg/dL N Blood chemistry[[id number]] Glucose [Mass/volume] in Serum or Plasma [2345-7] 08/29/2024 04:45 PM 309 mg/dL N Blood chemistry[[id number]] Glucose [Mass/volume] in Serum or Plasma [2345-7] 08/29/2024 09:26 AM 425 mg/dL N Blood chemistry[[id number]] Glucose [Mass/volume] in Serum or Plasma [2345-7] 08/29/2024 12:50 PM 243 mg/dL N Blood chemistry[[id number]] Glucose [Mass/volume] in Serum or Plasma [2345-7] 08/29/2024 06:23 AM 326 mg/dL N Blood chemistry[[id number]] Glucose [Mass/volume] in Serum or Plasma [2345-7] 08/28/2024 04:06 PM 274 mg/dL N Blood chemistry[[id number]] Glucose [Mass/volume] in Serum or Plasma [2345-7] 08/28/2024 09:20 AM 335 mg/dL N Blood chemistry[[id number]] Glucose [Mass/volume] in Serum or Plasma [2345-7] 08/28/2024 12:44 PM 210 mg/dL N Blood chemistry[[id number]] Glucose [Mass/volume] in Serum or Plasma [2345-7] 08/27/2024 02:39 PM 262 mg/dL N Blood chemistry[[id number]] Glucose [Mass/volume] in Serum or Plasma [2345-7] 08/27/2024 04:46 PM 282 mg/dL N Blood chemistry[[id number]] Glucose [Mass/volume] in Serum or Plasma [2345-7] 08/27/2024 09:10 AM 237 mg/dL N Blood chemistry[[id number]] Glucose [Mass/volume] in Serum or Plasma [2345-7] 08/27/2024 01:33 PM 198 mg/dL N Blood chemistry[[id number]] Glucose [Mass/volume] in Serum or Plasma [2345-7] 08/26/2024 03:23 PM 279 mg/dL N Blood chemistry[[id number]] Glucose [Mass/volume] in Serum or Plasma [2345-7] 08/26/2024 04:05 PM 278 mg/dL N Blood chemistry[[id number]] Glucose [Mass/volume] in Serum or Plasma [2345-7] 08/26/2024 10:05 AM 210 mg/dL N Blood chemistry[[id number]] Glucose [Mass/volume] in Serum or Plasma [2345-7] 08/26/2024 12:50 PM 223 mg/dL N Blood chemistry[[id number]] Glucose [Mass/volume] in Serum or Plasma [2345-7] 08/25/2024 03:53 PM 325 mg/dL N Blood chemistry[[id number]] Glucose [Mass/volume] in Serum or Plasma [2345-7] 08/25/2024 05:12 PM 234 mg/dL N Blood chemistry[[id number]] Glucose [Mass/volume] in Serum or Plasma [2345-7] 08/25/2024 09:54 AM 242 mg/dL N Blood chemistry[[id number]] Glucose [Mass/volume] in Serum or Plasma [2345-7] 08/25/2024 01:01 PM 218 mg/dL N Blood chemistry[[id number]] Glucose [Mass/volume] in Serum or Plasma [2345-7] 08/24/2024 12:42 PM 302 mg/dL N Blood chemistry[[id number]] Glucose [Mass/volume] in Serum or Plasma [2345-7] 08/24/2024 04:33 PM 344 mg/dL N Blood chemistry[[id number]] Glucose [Mass/volume] in Serum or Plasma [2345-7] 08/24/2024 09:19 AM 226 mg/dL N Blood chemistry[[id number]] Glucose [Mass/volume] in Serum or Plasma [2345-7] 08/24/2024 12:05 PM 237 mg/dL N Blood chemistry[[id number]] Glucose [Mass/volume] in Serum or Plasma [2345-7] 08/23/2024 02:59 PM 358 mg/dL N Blood chemistry[[id number]] Glucose [Mass/volume] in Serum or Plasma [2345-7] 08/23/2024 04:21 PM 337 mg/dL N Blood chemistry[[id number]] Glucose [Mass/volume] in Serum or Plasma [2345-7] 08/23/2024 09:38 AM 196 mg/dL N Blood chemistry[[id number]] Glucose [Mass/volume] in Serum or Plasma [2345-7] 08/23/2024 11:24 AM 265 mg/dL N Blood chemistry[[id number]] Glucose [Mass/volume] in Serum or Plasma [2345-7] 08/22/2024 01:01 PM 349 mg/dL N Blood chemistry[[id number]] Glucose [Mass/volume] in Serum or Plasma [2345-7] 08/22/2024 04:23 PM 329 mg/dL N Blood chemistry[[id number]] Glucose [Mass/volume] in Serum or Plasma [2345-7] 08/22/2024 09:40 AM 265 mg/dL N Blood chemistry[[id number]] Glucose [Mass/volume] in Serum or Plasma [2345-7] 08/22/2024 12:28 PM 213 mg/dL N Blood chemistry[[id number]] Glucose [Mass/volume] in Serum or Plasma [2345-7] 08/21/2024 01:02 PM 339 mg/dL N Blood chemistry[[id number]] Glucose [Mass/volume] in Serum or Plasma [2345-7] 08/21/2024 04:36 PM 300 mg/dL N Blood chemistry[[id number]] Glucose [Mass/volume] in Serum or Plasma [2345-7] 08/21/2024 09:28 AM 324 mg/dL N Blood chemistry[[id number]] Glucose [Mass/volume] in Serum or Plasma [2345-7] 08/21/2024 01:27 PM 216 mg/dL N Blood chemistry[[id number]] Glucose [Mass/volume] in Serum or Plasma [2345-7] 08/20/2024 02:14 PM 195 mg/dL N Blood chemistry[[id number]] Glucose [Mass/volume] in Serum or Plasma [2345-7] 08/20/2024 04:17 PM 301 mg/dL N Blood chemistry[[id number]] Glucose [Mass/volume] in Serum or Plasma [2345-7] 08/20/2024 09:08 AM 271 mg/dL N Blood chemistry[[id number]] Glucose [Mass/volume] in Serum or Plasma [2345-7] 08/20/2024 12:01 PM 206 mg/dL N Blood chemistry[[id number]] Glucose [Mass/volume] in Serum or Plasma [2345-7] 08/19/2024 02:03 PM 202 mg/dL N Blood chemistry[[id number]] Glucose [Mass/volume] in Serum or Plasma [2345-7] 08/19/2024 04:29 PM 235 mg/dL N Blood chemistry[[id number]] Glucose [Mass/volume] in Serum or Plasma [2345-7] 08/19/2024 09:21 AM 325 mg/dL N Blood chemistry[[id number]] Glucose [Mass/volume] in Serum or Plasma [2345-7] 08/19/2024 12:07 PM 200 mg/dL N Blood chemistry[[id number]] Glucose [Mass/volume] in Serum or Plasma [2345-7] 08/18/2024 02:07 PM 200 mg/dL N Blood chemistry[[id number]] Glucose [Mass/volume] in Serum or Plasma [2345-7] 08/18/2024 04:38 PM 357 mg/dL N Blood chemistry[[id number]] Glucose [Mass/volume] in Serum or Plasma [2345-7] 08/18/2024 09:34 AM 322 mg/dL N Blood chemistry[[id number]] Glucose [Mass/volume] in Serum or Plasma [2345-7] 08/18/2024 12:26 PM 224 mg/dL N Blood chemistry[[id number]] Glucose [Mass/volume] in Serum or Plasma [2345-7] 08/17/2024 02:55 PM 325 mg/dL N Blood chemistry[[id number]] Glucose [Mass/volume] in Serum or Plasma [2345-7] 08/17/2024 04:20 PM 307 mg/dL N Blood chemistry[[id number]] Glucose [Mass/volume] in Serum or Plasma [2345-7] 08/17/2024 09:24 AM 237 mg/dL N Blood chemistry[[id number]] Glucose [Mass/volume] in Serum or Plasma [2345-7] 08/17/2024 12:10 PM 236 mg/dL N Blood chemistry[[id number]] Glucose [Mass/volume] in Serum or Plasma [2345-7] 08/16/2024 04:02 PM 282 mg/dL N Blood chemistry[[id number]] Glucose [Mass/volume] in Serum or Plasma [2345-7] 08/16/2024 04:46 PM 233 mg/dL N Blood chemistry[[id number]] Glucose [Mass/volume] in Serum or Plasma [2345-7] 08/16/2024 09:36 AM 286 mg/dL N Blood chemistry[[id number]] Glucose [Mass/volume] in Serum or Plasma [2345-7] 08/16/2024 01:45 PM 272 mg/dL N Blood chemistry[[id number]] Glucose [Mass/volume] in Serum or Plasma [2345-7] 08/15/2024 01:36 PM 400 mg/dL N Blood chemistry[[id number]] Glucose [Mass/volume] in Serum or Plasma [2345-7] 08/15/2024 09:18 AM 287 mg/dL N Blood chemistry[[id number]] Glucose [Mass/volume] in Serum or Plasma [2345-7] 08/15/2024 12:15 PM 198 mg/dL N Blood chemistry[[id number]] Glucose [Mass/volume] in Serum or Plasma [2345-7] 08/14/2024 02:30 PM 326 mg/dL N Blood chemistry[[id number]] Glucose [Mass/volume] in Serum or Plasma [2345-7] 08/14/2024 05:54 PM 432 mg/dL N Blood chemistry[[id number]] Glucose [Mass/volume] in Serum or Plasma [2345-7] 08/14/2024 10:55 AM 322 mg/dL N Blood chemistry[[id number]] Glucose [Mass/volume] in Serum or Plasma [2345-7] 08/14/2024 12:57 PM 280 mg/dL N Blood chemistry[[id number]] Glucose [Mass/volume] in Serum or Plasma [2345-7] 08/13/2024 02:55 PM 224 mg/dL N Blood chemistry[[id number]] Glucose [Mass/volume] in Serum or Plasma [2345-7] 08/13/2024 04:23 PM 367 mg/dL N Blood chemistry[[id number]] Glucose [Mass/volume] in Serum or Plasma [2345-7] 08/13/2024 09:15 AM 346 mg/dL N Blood chemistry[[id number]] Glucose [Mass/volume] in Serum or Plasma [2345-7] 08/13/2024 11:48 AM 241 mg/dL N Blood chemistry[[id number]] Glucose [Mass/volume] in Serum or Plasma [2345-7] 08/12/2024 02:59 PM 212 mg/dL N Blood chemistry[[id number]] Glucose [Mass/volume] in Serum or Plasma [2345-7] 08/12/2024 03:49 PM 342 mg/dL N Blood chemistry[[id number]] Glucose [Mass/volume] in Serum or Plasma [2345-7] 08/12/2024 12:57 PM 258 mg/dL N Blood chemistry[[id number]] Glucose [Mass/volume] in Serum or Plasma [2345-7] 08/12/2024 09:30 AM 383 mg/dL N Blood chemistry[[id number]] Glucose [Mass/volume] in Serum or Plasma [2345-7] 08/11/2024 04:32 PM 274 mg/dL N Blood chemistry[[id number]] Glucose [Mass/volume] in Serum or Plasma [2345-7] 08/11/2024 05:16 PM 284 mg/dL N Blood chemistry[[id number]] Glucose [Mass/volume] in Serum or Plasma [2345-7] 08/11/2024 09:38 AM 244 mg/dL N Blood chemistry[[id number]] Glucose [Mass/volume] in Serum or Plasma [2345-7] 08/11/2024 11:51 AM 231 mg/dL N Blood chemistry[[id number]] Glucose [Mass/volume] in Serum or Plasma [2345-7] 08/10/2024 01:44 PM 400 mg/dL N Blood chemistry[[id number]] Glucose [Mass/volume] in Serum or Plasma [2345-7] 08/10/2024 05:33 PM 386 mg/dL N Blood chemistry[[id number]] Glucose [Mass/volume] in Serum or Plasma [2345-7] 08/10/2024 09:23 AM 345 mg/dL N Blood chemistry[[id number]] Glucose [Mass/volume] in Serum or Plasma [2345-7] 08/10/2024 12:01 PM 219 mg/dL N Blood chemistry[[id number]] Glucose [Mass/volume] in Serum or Plasma [2345-7] 08/09/2024 01:52 PM 400 mg/dL N Blood chemistry[[id number]] Glucose [Mass/volume] in Serum or Plasma [2345-7] 08/08/2024 01:17 PM 386 mg/dL N Blood chemistry[[id number]] Glucose [Mass/volume] in Serum or Plasma [2345-7] 08/07/2024 03:43 PM 369 mg/dL N Blood chemistry[[id number]] Glucose [Mass/volume] in Serum or Plasma [2345-7] 08/07/2024 06:38 AM 345 mg/dL N Blood chemistry[[id number]] Glucose [Mass/volume] in Serum or Plasma [2345-7] 08/07/2024 02:39 PM 371 mg/dL N Blood chemistry[[id number]] Glucose [Mass/volume] in Serum or Plasma [2345-7] 08/06/2024 02:00 PM 278 mg/dL N Blood chemistry[[id number]] Glucose [Mass/volume] in Serum or Plasma [2345-7] 08/06/2024 04:36 PM 354 mg/dL N Blood chemistry[[id number]] Glucose [Mass/volume] in Serum or Plasma [2345-7] 08/06/2024 09:15 AM 348 mg/dL N Blood chemistry[[id number]] Glucose [Mass/volume] in Serum or Plasma [2345-7] 08/06/2024 12:39 PM 271 mg/dL N Blood chemistry[[id number]] Glucose [Mass/volume] in Serum or Plasma [2345-7] 08/05/2024 02:52 PM 341 mg/dL N Blood chemistry[[id number]] Glucose [Mass/volume] in Serum or Plasma [2345-7] 08/05/2024 04:21 PM 381 mg/dL N Blood chemistry[[id number]] Glucose [Mass/volume] in Serum or Plasma [2345-7] 08/05/2024 09:31 AM 351 mg/dL N Blood chemistry[[id number]] Glucose [Mass/volume] in Serum or Plasma [2345-7] 08/05/2024 12:05 PM 231 mg/dL N Blood chemistry[[id number]] Glucose [Mass/volume] in Serum or Plasma [2345-7] 08/04/2024 04:53 PM 200 mg/dL N Blood chemistry[[id number]] Glucose [Mass/volume] in Serum or Plasma [2345-7] 08/04/2024 04:35 PM 392 mg/dL N Blood chemistry[[id number]] Glucose [Mass/volume] in Serum or Plasma [2345-7] 08/04/2024 10:13 AM 422 mg/dL N Blood chemistry[[id number]] Glucose [Mass/volume] in Serum or Plasma [2345-7] 08/04/2024 12:32 PM 272 mg/dL N Blood chemistry[[id number]] Glucose [Mass/volume] in Serum or Plasma [2345-7] 08/03/2024 01:25 PM 400 mg/dL N Blood chemistry[[id number]] Glucose [Mass/volume] in Serum or Plasma [2345-7] 08/03/2024 04:28 PM 345 mg/dL N Blood chemistry[[id number]] Glucose [Mass/volume] in Serum or Plasma [2345-7] 08/03/2024 10:11 AM 361 mg/dL N Blood chemistry[[id number]] Glucose [Mass/volume] in Serum or Plasma [2345-7] 08/03/2024 12:48 PM 258 mg/dL N Blood chemistry[[id number]] Glucose [Mass/volume] in Serum or Plasma [2345-7] 08/02/2024 12:41 PM 400 mg/dL N Blood chemistry[[id number]] Glucose [Mass/volume] in Serum or Plasma [2345-7] 08/02/2024 04:16 PM 391 mg/dL N Blood chemistry[[id number]] Glucose [Mass/volume] in Serum or Plasma [2345-7] 08/02/2024 09:39 AM 326 mg/dL N Blood chemistry[[id number]] Glucose [Mass/volume] in Serum or Plasma [2345-7] 08/02/2024 12:12 PM 259 mg/dL N Blood chemistry[[id number]] Glucose [Mass/volume] in Serum or Plasma [2345-7] 08/02/2024 05:31 PM 400 mg/dL N Blood chemistry[[id number]] Glucose [Mass/volume] in Serum or Plasma [2345-7] 08/01/2024 04:46 PM 362 mg/dL N Blood chemistry[[id number]] Glucose [Mass/volume] in Serum or Plasma [2345-7] 08/01/2024 10:00 AM 339 mg/dL N Blood chemistry[[id number]] Glucose [Mass/volume] in Serum or Plasma [2345-7] 08/01/2024 11:58 AM 264 mg/dL N Blood chemistry[[id number]] Glucose [Mass/volume] in Serum or Plasma [2345-7] 07/31/2024 12:55 PM 400 mg/dL N Blood chemistry[[id number]] Glucose [Mass/volume] in Serum or Plasma [2345-7] 07/31/2024 05:18 PM 265 mg/dL N Blood chemistry[[id number]] Glucose [Mass/volume] in Serum or Plasma [2345-7] 07/31/2024 09:14 AM 218 mg/dL N Blood chemistry[[id number]] Glucose [Mass/volume] in Serum or Plasma [2345-7] 07/31/2024 02:09 PM 232 mg/dL N Blood chemistry[[id number]] Glucose [Mass/volume] in Serum or Plasma [2345-7] 07/30/2024 12:49 PM 378 mg/dL N Blood chemistry[[id number]] Glucose [Mass/volume] in Serum or Plasma [2345-7] 07/30/2024 04:40 PM 365 mg/dL N Blood chemistry[[id number]] Glucose [Mass/volume] in Serum or Plasma [2345-7] 07/30/2024 02:40 PM 211 mg/dL N Blood chemistry[[id number]] Glucose [Mass/volume] in Serum or Plasma [2345-7] 07/30/2024 09:22 AM 237 mg/dL N Blood chemistry[[id number]] Glucose [Mass/volume] in Serum or Plasma [2345-7] 07/29/2024 01:44 PM 398 mg/dL N Blood chemistry[[id number]] Glucose [Mass/volume] in Serum or Plasma [2345-7] 07/29/2024 04:16 PM 311 mg/dL N Blood chemistry[[id number]] Glucose [Mass/volume] in Serum or Plasma [2345-7] 07/29/2024 09:17 AM 335 mg/dL N Blood chemistry[[id number]] Glucose [Mass/volume] in Serum or Plasma [2345-7] 07/29/2024 01:37 PM 205 mg/dL N Blood chemistry[[id number]] Glucose [Mass/volume] in Serum or Plasma [2345-7] 07/28/2024 02:36 PM 321 mg/dL N Blood chemistry[[id number]] Glucose [Mass/volume] in Serum or Plasma [2345-7] 07/28/2024 04:19 PM 274 mg/dL N Blood chemistry[[id number]] Glucose [Mass/volume] in Serum or Plasma [2345-7] 07/28/2024 09:12 AM 248 mg/dL N Blood chemistry[[id number]] Glucose [Mass/volume] in Serum or Plasma [2345-7] 07/28/2024 11:35 AM 199 mg/dL N Blood chemistry[[id number]] Glucose [Mass/volume] in Serum or Plasma [2345-7] 07/27/2024 01:21 PM 400 mg/dL N Blood chemistry[[id number]] Glucose [Mass/volume] in Serum or Plasma [2345-7] 07/27/2024 04:29 PM 327 mg/dL N Blood chemistry[[id number]] Glucose [Mass/volume] in Serum or Plasma [2345-7] 07/27/2024 09:25 AM 303 mg/dL N Blood chemistry[[id number]] Glucose [Mass/volume] in Serum or Plasma [2345-7] 07/27/2024 12:52 PM 234 mg/dL N Blood chemistry[[id number]] Glucose [Mass/volume] in Serum or Plasma [2345-7] 07/26/2024 01:19 PM 325 mg/dL N Blood chemistry[[id number]] Glucose [Mass/volume] in Serum or Plasma [2345-7] 07/26/2024 04:33 PM 372 mg/dL N Blood chemistry[[id number]] Glucose [Mass/volume] in Serum or Plasma [2345-7] 07/26/2024 09:27 AM 339 mg/dL N Blood chemistry[[id number]] Glucose [Mass/volume] in Serum or Plasma [2345-7] 07/26/2024 12:41 PM 250 mg/dL N Blood chemistry[[id number]] Glucose [Mass/volume] in Serum or Plasma [2345-7] 07/25/2024 02:08 PM 383 mg/dL N Blood chemistry[[id number]] Glucose [Mass/volume] in Serum or Plasma [2345-7] 07/25/2024 04:26 PM 377 mg/dL N Blood chemistry[[id number]] Glucose [Mass/volume] in Serum or Plasma [2345-7] 07/25/2024 09:29 AM 302 mg/dL N Blood chemistry[[id number]] Glucose [Mass/volume] in Serum or Plasma [2345-7] 07/25/2024 12:33 PM 231 mg/dL N Blood chemistry[[id number]] Glucose [Mass/volume] in Serum or Plasma [2345-7] 2024 12:35 PM 400 mg/dL N Blood chemistry[[id number]] Glucose [Mass/volume] in Serum or Plasma [2345-7] 2024 04:05 PM 395 mg/dL N Blood chemistry[[id number]] Glucose [Mass/volume] in Serum or Plasma [2345-7] 2024 09:14 AM 373 mg/dL N Blood chemistry[[id number]] Glucose [Mass/volume] in Serum or Plasma [2345-7] 2024 12:07 PM 272 mg/dL N Blood chemistry[[id number]] Glucose [Mass/volume] in Serum or Plasma [2345-7] 07/23/2024 01:21 PM 398 mg/dL N Blood chemistry[[id number]] Glucose [Mass/volume] in Serum or Plasma [2345-7] 07/23/2024 05:11 PM 285 mg/dL N Blood chemistry[[id number]] Glucose [Mass/volume] in Serum or Plasma [2345-7] 07/23/2024 09:20 AM 473 mg/dL N Blood chemistry[[id number]] Glucose [Mass/volume] in Serum or Plasma [2345-7] 07/23/2024 01:07 PM 211 mg/dL N Blood chemistry[[id number]] Glucose [Mass/volume] in Serum or Plasma [2345-7] 07/22/2024 01:06 PM 395 mg/dL N Glucose [Mass/volume] in Serum or Plasma [2345-7] 07/22/2024 01:06 PM 281 mg/dL N Blood chemistry[[id number]] Glucose [Mass/volume] in Serum or Plasma [2345-7] 07/22/2024 04:44 PM 360 mg/dL N Blood chemistry[[id number]] Glucose [Mass/volume] in Serum or Plasma [2345-7] 07/22/2024 10:26 AM 396 mg/dL N Blood chemistry[[id number]] Glucose [Mass/volume] in Serum or Plasma [2345-7] 07/21/2024 02:01 PM 378 mg/dL N Blood chemistry[[id number]] Glucose [Mass/volume] in Serum or Plasma [2345-7] 07/21/2024 06:06 AM 339 mg/dL N Blood chemistry[[id number]] Glucose [Mass/volume] in Serum or Plasma [2345-7] 07/21/2024 12:14 PM 202 mg/dL N Blood chemistry[[id number]] Glucose [Mass/volume] in Serum or Plasma [2345-7] 07/20/2024 02:01 PM 399 mg/dL N Blood chemistry[[id number]] Glucose [Mass/volume] in Serum or Plasma [2345-7] 07/20/2024 04:53 PM 355 mg/dL N Blood chemistry[[id number]] Glucose [Mass/volume] in Serum or Plasma [2345-7] 07/20/2024 09:28 AM 358 mg/dL N Blood chemistry[] Glucose [Mass/volume] in Serum or Plasma [2345-7] 07/20/2024 11:58 AM 215 mg/dL N Blood chemistry[[id number]] Glucose [Mass/volume] in Serum or Plasma [2345-7] 07/19/2024 12:34 PM 400 mg/dL N Blood chemistry[[id number]] Glucose [Mass/volume] in Serum or Plasma [2345-7] 07/19/2024 04:18 PM 393 mg/dL N Blood chemistry[[id number]] Glucose [Mass/volume] in Serum or Plasma [2345-7] 07/19/2024 09:08 AM 413 mg/dL N Blood chemistry[[id number]] Glucose [Mass/volume] in Serum or Plasma [2345-7] 07/19/2024 12:21 PM 216 mg/dL N Blood chemistry[[id number]] Glucose [Mass/volume] in Serum or Plasma [2345-7] 07/18/2024 12:30 PM 400 mg/dL N Blood chemistry[[id number]] Glucose [Mass/volume] in Serum or Plasma [2345-7] 07/18/2024 05:25 PM 334 mg/dL N Blood chemistry[[id number]] Glucose [Mass/volume] in Serum or Plasma [2345-7] 07/18/2024 10:02 AM 465 mg/dL N Blood chemistry[[id number]] Glucose [Mass/volume] in Serum or Plasma [2345-7] 07/18/2024 11:45 AM 215 mg/dL N Blood chemistry[[id number]] Glucose [Mass/volume] in Serum or Plasma [2345-7] 07/17/2024 01:26 PM 400 mg/dL N Blood chemistry[[id number]] Glucose [Mass/volume] in Serum or Plasma [2345-7] 07/17/2024 03:45 PM 329 mg/dL N Blood chemistry[[id number]] Glucose [Mass/volume] in Serum or Plasma [2345-7] 07/17/2024 08:27 AM 379 mg/dL N Blood chemistry[[id number]] Glucose [Mass/volume] in Serum or Plasma [2345-7] 07/17/2024 01:37 PM 205 mg/dL N Blood chemistry[[id number]] Glucose [Mass/volume] in Serum or Plasma [2345-7] 07/16/2024 12:54 PM 378 mg/dL N Blood chemistry[[id number]] Glucose [Mass/volume] in Serum or Plasma [2345-7] 07/16/2024 04:27 PM 314 mg/dL N Blood chemistry[[id number]] Glucose [Mass/volume] in Serum or Plasma [2345-7] 07/16/2024 09:56 AM 401 mg/dL N Blood chemistry[[id number]] Glucose [Mass/volume] in Serum or Plasma [2345-7] 07/16/2024 12:42 PM 167 mg/dL N Blood chemistry[[id number]] Glucose [Mass/volume] in Serum or Plasma [2345-7] 07/15/2024 01:44 PM 200 mg/dL N Blood chemistry[[id number]] Glucose [Mass/volume] in Serum or Plasma [2345-7] 07/15/2024 04:43 PM 308 mg/dL N Blood chemistry[[id number]] Glucose [Mass/volume] in Serum or Plasma [2345-7] 07/15/2024 09:00 AM 304 mg/dL N Blood chemistry[[id number]] Glucose [Mass/volume] in Serum or Plasma [2345-7] 07/15/2024 12:03 PM 160 mg/dL N Blood chemistry[[id number]] Glucose [Mass/volume] in Serum or Plasma [2345-7] 07/15/2024 06:46 AM 242 mg/dL N Blood chemistry[[id number]] Glucose [Mass/volume] in Serum or Plasma [2345-7] 07/14/2024 04:24 PM 280 mg/dL N Blood chemistry[[id number]] Glucose [Mass/volume] in Serum or Plasma [2345-7] 07/14/2024 09:29 AM 336 mg/dL N Blood chemistry[[id number]] Glucose [Mass/volume] in Serum or Plasma [2345-7] 07/14/2024 12:04 PM 172 mg/dL N Blood chemistry[[id number]] Glucose [Mass/volume] in Serum or Plasma [2345-7] 07/13/2024 01:04 PM 323 mg/dL N Blood chemistry[[id number]] Glucose [Mass/volume] in Serum or Plasma [2345-7] 07/13/2024 04:47 PM 418 mg/dL N Blood chemistry[[id number]] Glucose [Mass/volume] in Serum or Plasma [2345-7] 07/13/2024 09:41 AM 292 mg/dL N Blood chemistry[[id number]] Glucose [Mass/volume] in Serum or Plasma [2345-7] 07/13/2024 12:04 PM 198 mg/dL N Blood chemistry[[id number]] Glucose [Mass/volume] in Serum or Plasma [2345-7] 07/12/2024 03:12 PM 400 mg/dL N Blood chemistry[[id number]] Glucose [Mass/volume] in Serum or Plasma [2345-7] 07/12/2024 09:42 AM 539 mg/dL N Blood chemistry[[id number]] Glucose [Mass/volume] in Serum or Plasma [2345-7] 07/12/2024 07:03 AM 400 mg/dL N Blood chemistry[[id number]] Glucose [Mass/volume] in Serum or Plasma [2345-7] 07/12/2024 12:30 PM 211 mg/dL N Blood chemistry[[id number]] Glucose [Mass/volume] in Serum or Plasma [2345-7] 07/11/2024 12:06 PM 400 mg/dL N Blood chemistry[[id number]] Glucose [Mass/volume] in Serum or Plasma [2345-7] 07/11/2024 09:11 AM 413 mg/dL N Blood chemistry[[id number]] Glucose [Mass/volume] in Serum or Plasma [2345-7] 07/11/2024 04:15 PM 417 mg/dL N Blood chemistry[[id number]] Glucose [Mass/volume] in Serum or Plasma [2345-7] 07/11/2024 12:17 PM 267 mg/dL N Blood chemistry[[id number]] Glucose [Mass/volume] in Serum or Plasma [2345-7] 07/10/2024 04:32 PM 304 mg/dL N Blood chemistry[[id number]] Glucose [Mass/volume] in Serum or Plasma [2345-7] 07/10/2024 01:25 PM 343 mg/dL N Blood chemistry[[id number]] Glucose [Mass/volume] in Serum or Plasma [2345-7] 07/10/2024 11:54 AM 189 mg/dL N Blood chemistry[[id number]] Glucose [Mass/volume] in Serum or Plasma [2345-7] 07/10/2024 09:52 AM 323 mg/dL N Blood chemistry[[id number]] Glucose [Mass/volume] in Serum or Plasma [2345-7] 07/09/2024 03:10 PM 285 mg/dL N Blood chemistry[[id number]] Glucose [Mass/volume] in Serum or Plasma [2345-7] 07/09/2024 10:09 AM 299 mg/dL N Blood chemistry[[id number]] Glucose [Mass/volume] in Serum or Plasma [2345-7] 07/09/2024 04:48 PM 399 mg/dL N Blood chemistry[[id number]] Glucose [Mass/volume] in Serum or Plasma [2345-7] 07/09/2024 12:18 PM 210 mg/dL N Blood chemistry[[id number]] Glucose [Mass/volume] in Serum or Plasma [2345-7] 07/08/2024 05:50 PM 317 mg/dL N Blood chemistry[[id number]] Glucose [Mass/volume] in Serum or Plasma [2345-7] 07/08/2024 03:39 PM 385 mg/dL N Blood chemistry[[id number]] Glucose [Mass/volume] in Serum or Plasma [2345-7] 07/08/2024 01:03 PM 195 mg/dL N Blood chemistry[[id number]] Glucose [Mass/volume] in Serum or Plasma [2345-7] 07/08/2024 10:53 AM 372 mg/dL N Blood chemistry[[id number]] Glucose [Mass/volume] in Serum or Plasma [2345-7] 07/07/2024 03:24 PM 240 mg/dL N Blood chemistry[[id number]] Glucose [Mass/volume] in Serum or Plasma [2345-7] 07/07/2024 10:39 AM 401 mg/dL N Blood chemistry[[id number]] Glucose [Mass/volume] in Serum or Plasma [2345-7] 07/07/2024 05:06 PM 375 mg/dL N Blood chemistry[[id number]] Glucose [Mass/volume] in Serum or Plasma [2345-7] 07/07/2024 01:29 PM 166 mg/dL N Blood chemistry[[id number]] Glucose [Mass/volume] in Serum or Plasma [2345-7] 07/06/2024 05:55 PM 200 mg/dL N Blood chemistry[[id number]] Glucose [Mass/volume] in Serum or Plasma [2345-7] 07/06/2024 10:33 AM 391 mg/dL N Blood chemistry[[id number]] Glucose [Mass/volume] in Serum or Plasma [2345-7] 07/06/2024 06:42 PM 283 mg/dL N Blood chemistry[[id number]] Glucose [Mass/volume] in Serum or Plasma [2345-7] 07/06/2024 05:26 PM 396 mg/dL N Blood chemistry[[id number]] Glucose [Mass/volume] in Serum or Plasma [2345-7] 07/06/2024 01:14 PM 215 mg/dL N Blood chemistry[[id number]] Glucose [Mass/volume] in Serum or Plasma [2345-7] 07/05/2024 10:55 AM 354 mg/dL N Blood chemistry[[id number]] Glucose [Mass/volume] in Serum or Plasma [2345-7] 07/05/2024 06:29 PM 293 mg/dL N Blood chemistry[[id number]] Glucose [Mass/volume] in Serum or Plasma [2345-7] 07/05/2024 01:38 PM 235 mg/dL N Blood chemistry[[id number]] Glucose [Mass/volume] in Serum or Plasma [2345-7] 07/04/2024 02:20 PM 383 mg/dL N Blood chemistry[[id number]] Glucose [Mass/volume] in Serum or Plasma [2345-7] 07/04/2024 10:17 AM 354 mg/dL N Blood chemistry[[id number]] Glucose [Mass/volume] in Serum or Plasma [2345-7] 07/04/2024 05:34 PM 379 mg/dL N Blood chemistry[[id number]] Glucose [Mass/volume] in Serum or Plasma [2345-7] 07/04/2024 01:29 PM 201 mg/dL N Blood chemistry[[id number]] Glucose [Mass/volume] in Serum or Plasma [2345-7] 07/03/2024 06:49 PM 364 mg/dL N Blood chemistry[[id number]] Glucose [Mass/volume] in Serum or Plasma [2345-7] 07/03/2024 03:23 PM 400 mg/dL N Blood chemistry[[id number]] Glucose [Mass/volume] in Serum or Plasma [2345-7] 07/03/2024 01:52 PM 264 mg/dL N Blood chemistry[[id number]] Glucose [Mass/volume] in Serum or Plasma [2345-7] 07/03/2024 11:07 AM 360 mg/dL N Blood chemistry[[id number]] Glucose [Mass/volume] in Serum or Plasma [2345-7] 07/02/2024 03:35 PM 398 mg/dL N Blood chemistry[[id number]] Glucose [Mass/volume] in Serum or Plasma [2345-7] 07/02/2024 10:55 AM 409 mg/dL N Blood chemistry[[id number]] Glucose [Mass/volume] in Serum or Plasma [2345-7] 07/02/2024 05:00 PM 354 mg/dL N Blood chemistry[[id number]] Glucose [Mass/volume] in Serum or Plasma [2345-7] 07/02/2024 01:34 PM 217 mg/dL N Blood chemistry[[id number]] Glucose [Mass/volume] in Serum or Plasma [2345-7] 07/01/2024 03:01 PM 374 mg/dL N Blood chemistry[[id number]] Glucose [Mass/volume] in Serum or Plasma [2345-7] 07/01/2024 10:51 AM 251 mg/dL N Blood chemistry[[id number]] Glucose [Mass/volume] in Serum or Plasma [2345-7] 07/01/2024 06:19 PM 269 mg/dL N Blood chemistry[[id number]] Glucose [Mass/volume] in Serum or Plasma [2345-7] 07/01/2024 06:13 PM 356 mg/dL N Blood chemistry[[id number]] Glucose [Mass/volume] in Serum or Plasma [2345-7] 07/01/2024 02:17 PM 207 mg/dL N Blood chemistry[[id number]] Glucose [Mass/volume] in Serum or Plasma [2345-7] 06/30/2024 05:40 PM 322 mg/dL N Blood chemistry[[id number]] Glucose [Mass/volume] in Serum or Plasma [2345-7] 06/30/2024 01:24 PM 166 mg/dL N Blood chemistry[[id number]] Glucose [Mass/volume] in Serum or Plasma [2345-7] 06/30/2024 10:37 AM 446 mg/dL N Blood chemistry[[id number]] Glucose [Mass/volume] in Serum or Plasma [2345-7] 06/29/2024 01:56 PM 235 mg/dL N Blood chemistry[[id number]] Glucose [Mass/volume] in Serum or Plasma [2345-7] 06/29/2024 10:33 AM 210 mg/dL N Blood chemistry[[id number]] Glucose [Mass/volume] in Serum or Plasma [2345-7] 06/29/2024 05:40 PM 299 mg/dL N Blood chemistry[[id number]] Glucose [Mass/volume] in Serum or Plasma [2345-7] 06/29/2024 12:52 PM 186 mg/dL N Blood chemistry[[id number]] Glucose [Mass/volume] in Serum or Plasma [2345-7] 06/28/2024 05:25 PM 327 mg/dL N Blood chemistry[[id number]] Glucose [Mass/volume] in Serum or Plasma [2345-7] 06/28/2024 03:03 PM 391 mg/dL N Blood chemistry[[id number]] Glucose [Mass/volume] in Serum or Plasma [2345-7] 06/28/2024 12:59 PM 240 mg/dL N Blood chemistry[[id number]] Glucose [Mass/volume] in Serum or Plasma [2345-7] 06/28/2024 10:43 AM 354 mg/dL N Blood chemistry[[id number]] Glucose [Mass/volume] in Serum or Plasma [2345-7] 06/27/2024 04:55 PM 317 mg/dL N Blood chemistry[[id number]] Glucose [Mass/volume] in Serum or Plasma [2345-7] 06/27/2024 11:05 AM 438 mg/dL N Blood chemistry[[id number]] Glucose [Mass/volume] in Serum or Plasma [2345-7] 06/27/2024 06:38 PM 329 mg/dL N Blood chemistry[[id number]] Glucose [Mass/volume] in Serum or Plasma [2345-7] 06/27/2024 05:25 PM 360 mg/dL N Blood chemistry[[id number]] Glucose [Mass/volume] in Serum or Plasma [2345-7] 06/27/2024 01:01 PM 197 mg/dL N Blood chemistry[[id number]] Glucose [Mass/volume] in Serum or Plasma [2345-7] 06/26/2024 06:07 PM 370 mg/dL N Blood chemistry[[id number]] Glucose [Mass/volume] in Serum or Plasma [2345-7] 06/26/2024 01:09 PM 177 mg/dL N Blood chemistry[[id number]] Glucose [Mass/volume] in Serum or Plasma [2345-7] 06/26/2024 11:45 AM 400 mg/dL N Blood chemistry[[id number]] Glucose [Mass/volume] in Serum or Plasma [2345-7] 06/25/2024 05:40 PM 265 mg/dL N Blood chemistry[[id number]] Glucose [Mass/volume] in Serum or Plasma [2345-7] 06/25/2024 10:31 AM 322 mg/dL N Blood chemistry[[id number]] Glucose [Mass/volume] in Serum or Plasma [2345-7] 06/25/2024 06:18 PM 244 mg/dL N Blood chemistry[[id number]] Glucose [Mass/volume] in Serum or Plasma [2345-7] 06/25/2024 05:14 PM 421 mg/dL N Blood chemistry[[id number]] Glucose [Mass/volume] in Serum or Plasma [2345-7] 06/25/2024 12:49 PM 168 mg/dL N Blood chemistry[[id number]] Glucose [Mass/volume] in Serum or Plasma [2345-7] 06/24/2024 05:46 PM 323 mg/dL N Blood chemistry[[id number]] Glucose [Mass/volume] in Serum or Plasma [2345-7] 06/24/2024 12:59 PM 188 mg/dL N Blood chemistry[[id number]] Glucose [Mass/volume] in Serum or Plasma [2345-7] 06/24/2024 10:34 AM 414 mg/dL N Blood chemistry[[id number]] Glucose [Mass/volume] in Serum or Plasma [2345-7] 06/23/2024 05:20 PM 334 mg/dL N Blood chemistry[[id number]] Glucose [Mass/volume] in Serum or Plasma [2345-7] 06/23/2024 10:40 AM 257 mg/dL N Blood chemistry[[id number]] Glucose [Mass/volume] in Serum or Plasma [2345-7] 06/23/2024 05:36 PM 322 mg/dL N Blood chemistry[[id number]] Glucose [Mass/volume] in Serum or Plasma [2345-7] 06/23/2024 12:30 PM 149 mg/dL N Blood chemistry[[id number]] Glucose [Mass/volume] in Serum or Plasma [2345-7] 06/22/2024 03:01 PM 240 mg/dL N Blood chemistry[[id number]] Glucose [Mass/volume] in Serum or Plasma [2345-7] 06/22/2024 11:42 AM 374 mg/dL N Blood chemistry[[id number]] Glucose [Mass/volume] in Serum or Plasma [2345-7] 06/22/2024 05:33 PM 383 mg/dL N Blood chemistry[[id number]] Glucose [Mass/volume] in Serum or Plasma [2345-7] 06/22/2024 01:23 PM 191 mg/dL N Blood chemistry[[id number]] Glucose [Mass/volume] in Serum or Plasma [2345-7] 06/21/2024 02:28 PM 298 mg/dL N Blood chemistry[[id number]] Glucose [Mass/volume] in Serum or Plasma [2345-7] 06/21/2024 10:42 AM 259 mg/dL N Blood chemistry[[id number]] Glucose [Mass/volume] in Serum or Plasma [2345-7] 06/21/2024 05:13 PM 376 mg/dL N Blood chemistry[[id number]] Glucose [Mass/volume] in Serum or Plasma [2345-7] 06/21/2024 11:56 AM 266 mg/dL N Blood chemistry[[id number]] Glucose [Mass/volume] in Serum or Plasma [2345-7] 06/20/2024 01:07 PM 400 mg/dL N Blood chemistry[[id number]] Glucose [Mass/volume] in Serum or Plasma [2345-7] 06/20/2024 11:28 AM 444 mg/dL N Blood chemistry[[id number]] Glucose [Mass/volume] in Serum or Plasma [2345-7] 06/20/2024 05:06 PM 360 mg/dL N Blood chemistry[[id number]] Glucose [Mass/volume] in Serum or Plasma [2345-7] 06/20/2024 02:40 PM 104 mg/dL N Blood chemistry[[id number]] Glucose [Mass/volume] in Serum or Plasma [2345-7] 06/19/2024 06:06 PM 294 mg/dL N Blood chemistry[[id number]] Glucose [Mass/volume] in Serum or Plasma [2345-7] 06/19/2024 03:26 PM 372 mg/dL N Blood chemistry[[id number]] Glucose [Mass/volume] in Serum or Plasma [2345-7] 06/19/2024 02:21 PM 95 mg/dL N Blood chemistry[[id number]] Glucose [Mass/volume] in Serum or Plasma [2345-7] 06/19/2024 11:40 AM 384 mg/dL N Blood chemistry[[id number]] Glucose [Mass/volume] in Serum or Plasma [2345-7] 06/19/2024 08:27 AM 245 mg/dL N Blood chemistry[[id number]] Glucose [Mass/volume] in Serum or Plasma [2345-7] 06/18/2024 10:35 AM 335 mg/dL N Blood chemistry[[id number]] Glucose [Mass/volume] in Serum or Plasma [2345-7] 06/18/2024 05:13 PM 306 mg/dL N Blood chemistry[[id number]] Glucose [Mass/volume] in Serum or Plasma [2345-7] 06/18/2024 12:48 PM 157 mg/dL N Blood chemistry[[id number]] Glucose [Mass/volume] in Serum or Plasma [2345-7] 06/17/2024 05:29 PM 287 mg/dL N Blood chemistry[[id number]] Glucose [Mass/volume] in Serum or Plasma [2345-7] 06/17/2024 03:52 PM 240 mg/dL N Blood chemistry[[id number]] Glucose [Mass/volume] in Serum or Plasma [2345-7] 06/17/2024 02:14 PM 137 mg/dL N Blood chemistry[[id number]] Glucose [Mass/volume] in Serum or Plasma [2345-7] 06/17/2024 11:32 AM 241 mg/dL N Blood chemistry[[id number]] Glucose [Mass/volume] in Serum or Plasma [2345-7] 06/16/2024 01:20 PM 435 mg/dL N Blood chemistry[[id number]] Glucose [Mass/volume] in Serum or Plasma [2345-7] 06/16/2024 10:25 AM 486 mg/dL N Blood chemistry[[id number]] Glucose [Mass/volume] in Serum or Plasma [2345-7] 06/16/2024 06:03 PM 98 mg/dL N Blood chemistry[[id number]] Glucose [Mass/volume] in Serum or Plasma [2345-7] 06/16/2024 05:27 PM 334 mg/dL N Blood chemistry[[id number]] Glucose [Mass/volume] in Serum or Plasma [2345-7] 06/16/2024 02:45 PM 133 mg/dL N Blood chemistry[[id number]] Glucose [Mass/volume] in Serum or Plasma [2345-7] 06/15/2024 05:22 PM 226 mg/dL N Blood chemistry[[id number]] Glucose [Mass/volume] in Serum or Plasma [2345-7] 06/15/2024 01:10 PM 120 mg/dL N Blood chemistry[[id number]] Glucose [Mass/volume] in Serum or Plasma [2345-7] 06/15/2024 11:36 AM 199 mg/dL N Blood chemistry[[id number]] Glucose [Mass/volume] in Serum or Plasma [2345-7] 06/14/2024 05:30 PM 210 mg/dL N Blood chemistry[[id number]] Glucose [Mass/volume] in Serum or Plasma [2345-7] 06/14/2024 01:44 PM 292 mg/dL N Blood chemistry[[id number]] Glucose [Mass/volume] in Serum or Plasma [2345-7] 06/14/2024 12:49 PM 114 mg/dL N Blood chemistry[[id number]] Glucose [Mass/volume] in Serum or Plasma [2345-7] 06/14/2024 10:43 AM 273 mg/dL N Blood chemistry[[id number]] Glucose [Mass/volume] in Serum or Plasma [2345-7] 06/13/2024 05:13 PM 268 mg/dL N Blood chemistry[[id number]] Glucose [Mass/volume] in Serum or Plasma [2345-7] 06/13/2024 02:07 PM 247 mg/dL N Blood chemistry[[id number]] Glucose [Mass/volume] in Serum or Plasma [2345-7] 06/13/2024 01:20 PM 104 mg/dL N Blood chemistry[[id number]] Glucose [Mass/volume] in Serum or Plasma [2345-7] 06/13/2024 11:08 AM 257 mg/dL N Blood chemistry[[id number]] Glucose [Mass/volume] in Serum or Plasma [2345-7] 06/12/2024 03:03 PM 175 mg/dL N Blood chemistry[[id number]] Glucose [Mass/volume] in Serum or Plasma [2345-7] 06/12/2024 06:04 PM 196 mg/dL N Blood chemistry[[id number]] Glucose [Mass/volume] in Serum or Plasma [2345-7] 06/12/2024 01:00 PM 130 mg/dL N Blood chemistry[[id number]] Glucose [Mass/volume] in Serum or Plasma [2345-7] 06/12/2024 10:30 AM 232 mg/dL N Blood chemistry[[id number]] Glucose [Mass/volume] in Serum or Plasma [2345-7] 06/11/2024 04:59 PM 209 mg/dL N Blood chemistry[[id number]] Glucose [Mass/volume] in Serum or Plasma [2345-7] 06/11/2024 05:13 PM 232 mg/dL N Blood chemistry[[id number]] Glucose [Mass/volume] in Serum or Plasma [2345-7] 06/11/2024 02:06 PM 150 mg/dL N Blood chemistry[[id number]] Glucose [Mass/volume] in Serum or Plasma [2345-7] 06/11/2024 09:45 AM 200 mg/dL N Blood chemistry[[id number]] Glucose [Mass/volume] in Serum or Plasma [2345-7] 06/10/2024 01:54 PM 285 mg/dL N Blood chemistry[[id number]] Glucose [Mass/volume] in Serum or Plasma [2345-7] 06/10/2024 10:49 AM 131 mg/dL N Blood chemistry[[id number]] Glucose [Mass/volume] in Serum or Plasma [2345-7] 06/10/2024 05:32 PM 202 mg/dL N Blood chemistry[[id number]] Glucose [Mass/volume] in Serum or Plasma [2345-7] 06/10/2024 12:56 PM 111 mg/dL N Blood chemistry[[id number]] Glucose [Mass/volume] in Serum or Plasma [2345-7] 06/09/2024 02:22 PM 212 mg/dL N Blood chemistry[[id number]] Glucose [Mass/volume] in Serum or Plasma [2345-7] 06/09/2024 05:08 PM 180 mg/dL N Blood chemistry[[id number]] Glucose [Mass/volume] in Serum or Plasma [2345-7] 06/09/2024 01:00 PM 134 mg/dL N Blood chemistry[[id number]] Glucose [Mass/volume] in Serum or Plasma [2345-7] 06/09/2024 12:59 PM 134 mg/dL N Blood chemistry[[id number]] Glucose [Mass/volume] in Serum or Plasma [2345-7] 06/09/2024 10:30 AM 196 mg/dL N Blood chemistry[[id number]] Glucose [Mass/volume] in Serum or Plasma [2345-7] 06/08/2024 02:34 PM 281 mg/dL N Blood chemistry[[id number]] Glucose [Mass/volume] in Serum or Plasma [2345-7] 06/08/2024 05:00 PM 290 mg/dL N Blood chemistry[[id number]] Glucose [Mass/volume] in Serum or Plasma [2345-7] 06/08/2024 01:31 PM 139 mg/dL N Blood chemistry[[id number]] Glucose [Mass/volume] in Serum or Plasma [2345-7] 06/08/2024 11:26 AM 370 mg/dL N Blood chemistry[[id number]] Glucose [Mass/volume] in Serum or Plasma [2345-7] 06/07/2024 03:07 PM 267 mg/dL N Blood chemistry[[id number]] Glucose [Mass/volume] in Serum or Plasma [2345-7] 06/07/2024 06:44 PM 306 mg/dL N Blood chemistry[[id number]] Glucose [Mass/volume] in Serum or Plasma [2345-7] 06/07/2024 01:12 PM 141 mg/dL N Blood chemistry[[id number]] Glucose [Mass/volume] in Serum or Plasma [2345-7] 06/07/2024 10:51 AM 298 mg/dL N Blood chemistry[[id number]] Glucose [Mass/volume] in Serum or Plasma [2345-7] 06/07/2024 07:28 AM 400 mg/dL N Blood chemistry[[id number]] Glucose [Mass/volume] in Serum or Plasma [2345-7] 06/06/2024 06:12 PM 127 mg/dL N Blood chemistry[[id number]] Glucose [Mass/volume] in Serum or Plasma [2345-7] 06/06/2024 01:39 PM 120 mg/dL N Blood chemistry[[id number]] Glucose [Mass/volume] in Serum or Plasma [2345-7] 06/06/2024 10:17 AM 321 mg/dL N Blood chemistry[[id number]] Glucose [Mass/volume] in Serum or Plasma [2345-7] 06/05/2024 04:20 PM 236 mg/dL N Blood chemistry[[id number]] Glucose [Mass/volume] in Serum or Plasma [2345-7] 06/05/2024 02:54 PM 161 mg/dL N Blood chemistry[[id number]] Glucose [Mass/volume] in Serum or Plasma [2345-7] 06/05/2024 11:44 AM 266 mg/dL N Blood chemistry[[id number]] Glucose [Mass/volume] in Serum or Plasma [2345-7] 06/05/2024 07:15 AM 290 mg/dL N Blood chemistry[[id number]] Glucose [Mass/volume] in Serum or Plasma [2345-7] 06/04/2024 04:06 PM 513 mg/dL N Blood chemistry[[id number]] Glucose [Mass/volume] in Serum or Plasma [2345-7] 06/04/2024 10:47 AM 238 mg/dL N Blood chemistry[[id number]] Glucose [Mass/volume] in Serum or Plasma [2345-7] 06/04/2024 05:30 PM 293 mg/dL N Blood chemistry[[id number]] Glucose [Mass/volume] in Serum or Plasma [2345-7] 06/04/2024 02:07 PM 175 mg/dL N Blood chemistry[[id number]] Glucose [Mass/volume] in Serum or Plasma [2345-7] 06/03/2024 05:09 PM 225 mg/dL N Blood chemistry[[id number]] Glucose [Mass/volume] in Serum or Plasma [2345-7] 06/03/2024 10:35 AM 155 mg/dL N Blood chemistry[[id number]] Glucose [Mass/volume] in Serum or Plasma [2345-7] 06/03/2024 05:36 PM 175 mg/dL N Blood chemistry[[id number]] Glucose [Mass/volume] in Serum or Plasma [2345-7] 06/03/2024 01:20 PM 93 mg/dL N Blood chemistry[[id number]] Glucose [Mass/volume] in Serum or Plasma [2345-7] 06/02/2024 02:58 PM 315 mg/dL N Blood chemistry[[id number]] Glucose [Mass/volume] in Serum or Plasma [2345-7] 06/02/2024 03:03 PM 103 mg/dL N Blood chemistry[[id number]] Glucose [Mass/volume] in Serum or Plasma [2345-7] 06/02/2024 10:58 AM 249 mg/dL N Blood chemistry[[id number]] Glucose [Mass/volume] in Serum or Plasma [2345-7] 06/02/2024 10:52 AM 426 mg/dL N Blood chemistry[[id number]] Glucose [Mass/volume] in Serum or Plasma [2345-7] 06/02/2024 08:21 AM 223 mg/dL N Blood chemistry[[id number]] Glucose [Mass/volume] in Serum or Plasma [2345-7] 06/01/2024 05:03 PM 263 mg/dL N Blood chemistry[[id number]] Glucose [Mass/volume] in Serum or Plasma [2345-7] 06/01/2024 01:14 PM 122 mg/dL N Blood chemistry[[id number]] Glucose [Mass/volume] in Serum or Plasma [2345-7] 06/01/2024 11:52 AM 228 mg/dL N Blood chemistry[[id number]] Glucose [Mass/volume] in Serum or Plasma [2345-7] 05/31/2024 04:45 PM 296 mg/dL N Blood chemistry[[id number]] Glucose [Mass/volume] in Serum or Plasma [2345-7] 05/31/2024 06:12 PM 209 mg/dL N Blood chemistry[[id number]] Glucose [Mass/volume] in Serum or Plasma [2345-7] 05/31/2024 01:51 PM 115 mg/dL N Blood chemistry[[id number]] Glucose [Mass/volume] in Serum or Plasma [2345-7] 05/31/2024 10:49 AM 208 mg/dL N Blood chemistry[] Glucose [Mass/volume] in Serum or Plasma [2345-7] 05/30/2024 05:13 PM 262 mg/dL N Blood chemistry[[id number]] Glucose [Mass/volume] in Serum or Plasma [2345-7] 05/30/2024 01:02 PM 235 mg/dL N Blood chemistry[[id number]] Glucose [Mass/volume] in Serum or Plasma [2345-7] 05/30/2024 12:54 PM 122 mg/dL N Blood chemistry[] Glucose [Mass/volume] in Serum or Plasma [2345-7] 05/30/2024 10:59 AM 155 mg/dL N Blood chemistry[[id number]] Glucose [Mass/volume] in Serum or Plasma [2345-7] 05/29/2024 05:33 PM 150 mg/dL N Blood chemistry[[id number]] Glucose [Mass/volume] in Serum or Plasma [2345-7] 05/29/2024 04:57 PM 173 mg/dL N Blood chemistry[[id number]] Glucose [Mass/volume] in Serum or Plasma [2345-7] 05/29/2024 12:33 PM 109 mg/dL N Blood chemistry[[id number]] Glucose [Mass/volume] in Serum or Plasma [2345-7] 05/29/2024 09:49 AM 166 mg/dL N Blood chemistry[[id number]] Glucose [Mass/volume] in Serum or Plasma [2345-7] 05/28/2024 05:24 PM 224 mg/dL N Blood chemistry[[id number]] Glucose [Mass/volume] in Serum or Plasma [2345-7] 05/28/2024 04:05 PM 226 mg/dL N Blood chemistry[[id number]] Glucose [Mass/volume] in Serum or Plasma [2345-7] 05/28/2024 12:52 PM 113 mg/dL N Blood chemistry[[id number]] Glucose [Mass/volume] in Serum or Plasma [2345-7] 05/28/2024 11:24 AM 212 mg/dL N Blood chemistry[[id number]] Glucose [Mass/volume] in Serum or Plasma [2345-7] 05/27/2024 03:02 PM 262 mg/dL N Blood chemistry[[id number]] Glucose [Mass/volume] in Serum or Plasma [2345-7] 05/27/2024 10:49 AM 256 mg/dL N Blood chemistry[[id number]] Glucose [Mass/volume] in Serum or Plasma [2345-7] 05/27/2024 05:25 PM 218 mg/dL N Blood chemistry[[id number]] Glucose [Mass/volume] in Serum or Plasma [2345-7] 05/27/2024 01:01 PM 136 mg/dL N Blood chemistry[[id number]] Glucose [Mass/volume] in Serum or Plasma [2345-7] 05/26/2024 03:03 PM 178 mg/dL N Blood chemistry[[id number]] Glucose [Mass/volume] in Serum or Plasma [2345-7] 05/26/2024 05:00 PM 251 mg/dL N Blood chemistry[[id number]] Glucose [Mass/volume] in Serum or Plasma [2345-7] 05/26/2024 12:58 PM 118 mg/dL N Blood chemistry[[id number]] Glucose [Mass/volume] in Serum or Plasma [2345-7] 05/26/2024 10:38 AM 159 mg/dL N Blood chemistry[[id number]] Glucose [Mass/volume] in Serum or Plasma [2345-7] 05/25/2024 02:55 PM 223 mg/dL N Blood chemistry[[id number]] Glucose [Mass/volume] in Serum or Plasma [2345-7] 05/25/2024 05:43 PM 218 mg/dL N Blood chemistry[[id number]] Glucose [Mass/volume] in Serum or Plasma [2345-7] 05/25/2024 01:20 PM 131 mg/dL N Blood chemistry[[id number]] Glucose [Mass/volume] in Serum or Plasma [2345-7] 05/25/2024 11:19 AM 176 mg/dL N Blood chemistry[[id number]] Glucose [Mass/volume] in Serum or Plasma [2345-7] 05/24/2024 02:08 PM 304 mg/dL N Blood chemistry[[id number]] Glucose [Mass/volume] in Serum or Plasma [2345-7] 05/24/2024 05:29 PM 265 mg/dL N Blood chemistry[[id number]] Glucose [Mass/volume] in Serum or Plasma [2345-7] 05/24/2024 01:28 PM 143 mg/dL N Blood chemistry[[id number]] Glucose [Mass/volume] in Serum or Plasma [2345-7] 05/24/2024 10:41 AM 207 mg/dL N Blood chemistry[[id number]] Glucose [Mass/volume] in Serum or Plasma [2345-7] 05/23/2024 04:44 PM 320 mg/dL N Blood chemistry[[id number]] Glucose [Mass/volume] in Serum or Plasma [2345-7] 05/23/2024 06:03 PM 330 mg/dL N Blood chemistry[[id number]] Glucose [Mass/volume] in Serum or Plasma [2345-7] 05/23/2024 02:47 PM 140 mg/dL N Blood chemistry[[id number]] Glucose [Mass/volume] in Serum or Plasma [2345-7] 05/23/2024 10:57 AM 274 mg/dL N Blood chemistry[[id number]] Glucose [Mass/volume] in Serum or Plasma [2345-7] 05/22/2024 06:08 PM 226 mg/dL N Blood chemistry[[id number]] Glucose [Mass/volume] in Serum or Plasma [2345-7] 05/22/2024 02:17 PM 150 mg/dL N Blood chemistry[[id number]] Glucose [Mass/volume] in Serum or Plasma [2345-7] 05/22/2024 02:12 PM 332 mg/dL N Blood chemistry[[id number]] Glucose [Mass/volume] in Serum or Plasma [2345-7] 05/22/2024 11:45 AM 261 mg/dL N Blood chemistry[[id number]] Glucose [Mass/volume] in Serum or Plasma [2345-7] 05/21/2024 02:37 PM 217 mg/dL N Blood chemistry[[id number]] Glucose [Mass/volume] in Serum or Plasma [2345-7] 05/21/2024 11:32 AM 234 mg/dL N Blood chemistry[[id number]] Glucose [Mass/volume] in Serum or Plasma [2345-7] 05/21/2024 05:36 PM 214 mg/dL N Blood chemistry[[id number]] Glucose [Mass/volume] in Serum or Plasma [2345-7] 05/21/2024 01:40 PM 181 mg/dL N Blood chemistry[[id number]] Glucose [Mass/volume] in Serum or Plasma [2345-7] 05/20/2024 05:17 PM 211 mg/dL N Blood chemistry[[id number]] Glucose [Mass/volume] in Serum or Plasma [2345-7] 05/20/2024 02:11 PM 314 mg/dL N Blood chemistry[[id number]] Glucose [Mass/volume] in Serum or Plasma [2345-7] 05/20/2024 01:52 PM 138 mg/dL N Blood chemistry[[id number]] Glucose [Mass/volume] in Serum or Plasma [2345-7] 05/20/2024 10:20 AM 270 mg/dL N Blood chemistry[[id number]] Glucose [Mass/volume] in Serum or Plasma [2345-7] 05/19/2024 04:49 PM 215 mg/dL N Blood chemistry[[id number]] Glucose [Mass/volume] in Serum or Plasma [2345-7] 05/19/2024 01:21 PM 111 mg/dL N Blood chemistry[[id number]] Glucose [Mass/volume] in Serum or Plasma [2345-7] 05/19/2024 01:00 PM 206 mg/dL N Blood chemistry[[id number]] Glucose [Mass/volume] in Serum or Plasma [2345-7] 05/19/2024 10:14 AM 197 mg/dL N Blood chemistry[[id number]] Glucose [Mass/volume] in Serum or Plasma [2345-7] 05/18/2024 12:31 PM 247 mg/dL N Blood chemistry[[id number]] Glucose [Mass/volume] in Serum or Plasma [2345-7] 05/18/2024 05:12 PM 247 mg/dL N Blood chemistry[[id number]] Glucose [Mass/volume] in Serum or Plasma [2345-7] 05/18/2024 12:56 PM 144 mg/dL N Blood chemistry[[id number]] Glucose [Mass/volume] in Serum or Plasma [2345-7] 05/18/2024 11:12 AM 260 mg/dL N Blood chemistry[[id number]] Glucose [Mass/volume] in Serum or Plasma [2345-7] 05/17/2024 03:05 PM 279 mg/dL N Blood chemistry[[id number]] Glucose [Mass/volume] in Serum or Plasma [2345-7] 05/17/2024 05:00 PM 218 mg/dL N Blood chemistry[[id number]] Glucose [Mass/volume] in Serum or Plasma [2345-7] 05/17/2024 01:21 PM 110 mg/dL N Blood chemistry[[id number]] Glucose [Mass/volume] in Serum or Plasma [2345-7] 05/17/2024 10:31 AM 233 mg/dL N Blood chemistry[[id number]] Glucose [Mass/volume] in Serum or Plasma [2345-7] 05/16/2024 02:47 PM 250 mg/dL N Blood chemistry[[id number]] Glucose [Mass/volume] in Serum or Plasma [2345-7] 05/16/2024 05:20 PM 220 mg/dL N Blood chemistry[[id number]] Glucose [Mass/volume] in Serum or Plasma [2345-7] 05/16/2024 01:10 PM 114 mg/dL N Blood chemistry[[id number]] Glucose [Mass/volume] in Serum or Plasma [2345-7] 05/16/2024 10:48 AM 226 mg/dL N Blood chemistry[[id number]] Glucose [Mass/volume] in Serum or Plasma [2345-7] 05/16/2024 08:49 AM 254 mg/dL N Blood chemistry[[id number]] Glucose [Mass/volume] in Serum or Plasma [2345-7] 05/15/2024 05:45 PM 191 mg/dL N Blood chemistry[[id number]] Glucose [Mass/volume] in Serum or Plasma [2345-7] 05/15/2024 12:38 PM 120 mg/dL N Blood chemistry[[id number]] Glucose [Mass/volume] in Serum or Plasma [2345-7] 05/15/2024 11:39 AM 174 mg/dL N Blood chemistry[[id number]] Glucose [Mass/volume] in Serum or Plasma [2345-7] 05/14/2024 05:04 PM 230 mg/dL N Blood chemistry[[id number]] Glucose [Mass/volume] in Serum or Plasma [2345-7] 05/14/2024 04:35 PM 212 mg/dL N Blood chemistry[[id number]] Glucose [Mass/volume] in Serum or Plasma [2345-7] 05/14/2024 12:33 PM 117 mg/dL N Blood chemistry[[id number]] Glucose [Mass/volume] in Serum or Plasma [2345-7] 05/14/2024 10:39 AM 148 mg/dL N Blood chemistry[[id number]] Glucose [Mass/volume] in Serum or Plasma [2345-7] 05/13/2024 04:08 PM 180 mg/dL N Blood chemistry[[id number]] Glucose [Mass/volume] in Serum or Plasma [2345-7] 05/13/2024 10:55 AM 132 mg/dL N Blood chemistry[[id number]] Glucose [Mass/volume] in Serum or Plasma [2345-7] 05/13/2024 05:10 PM 224 mg/dL N Blood chemistry[[id number]] Glucose [Mass/volume] in Serum or Plasma [2345-7] 05/13/2024 12:36 PM 133 mg/dL N Blood chemistry[[id number]] Glucose [Mass/volume] in Serum or Plasma [2345-7] 05/12/2024 04:08 PM 180 mg/dL N Blood chemistry[[id number]] Glucose [Mass/volume] in Serum or Plasma [2345-7] 05/12/2024 05:12 PM 237 mg/dL N Blood chemistry[[id number]] Glucose [Mass/volume] in Serum or Plasma [2345-7] 05/12/2024 01:09 PM 113 mg/dL N Blood chemistry[[id number]] Glucose [Mass/volume] in Serum or Plasma [2345-7] 05/12/2024 10:59 AM 217 mg/dL N Blood chemistry[[id number]] Glucose [Mass/volume] in Serum or Plasma [2345-7] 05/11/2024 03:26 PM 185 mg/dL N Blood chemistry[[id number]] Glucose [Mass/volume] in Serum or Plasma [2345-7] 05/11/2024 05:28 PM 239 mg/dL N Blood chemistry[[id number]] Glucose [Mass/volume] in Serum or Plasma [2345-7] 05/11/2024 12:44 PM 159 mg/dL N Blood chemistry[[id number]] Glucose [Mass/volume] in Serum or Plasma [2345-7] 05/10/2024 02:02 PM 216 mg/dL N Blood chemistry[[id number]] Glucose [Mass/volume] in Serum or Plasma [2345-7] 05/10/2024 01:40 PM 155 mg/dL N Blood chemistry[[id number]] Glucose [Mass/volume] in Serum or Plasma [2345-7] 05/10/2024 10:44 AM 241 mg/dL N Blood chemistry[[id number]] Glucose [Mass/volume] in Serum or Plasma [2345-7] 05/10/2024 07:07 AM 187 mg/dL N Blood chemistry[[id number]] Glucose [Mass/volume] in Serum or Plasma [2345-7] 05/09/2024 02:14 PM 259 mg/dL N Blood chemistry[[id number]] Glucose [Mass/volume] in Serum or Plasma [2345-7] 05/09/2024 05:26 PM 337 mg/dL N Blood chemistry[[id number]] Glucose [Mass/volume] in Serum or Plasma [2345-7] 05/09/2024 01:53 PM 144 mg/dL N Blood chemistry[[id number]] Glucose [Mass/volume] in Serum or Plasma [2345-7] 05/09/2024 10:50 AM 224 mg/dL N Blood chemistry[[id number]] Glucose [Mass/volume] in Serum or Plasma [2345-7] 05/08/2024 02:00 PM 336 mg/dL N Blood chemistry[[id number]] Glucose [Mass/volume] in Serum or Plasma [2345-7] 05/08/2024 05:05 PM 242 mg/dL N Blood chemistry[[id number]] Glucose [Mass/volume] in Serum or Plasma [2345-7] 05/08/2024 01:18 PM 140 mg/dL N Blood chemistry[[id number]] Glucose [Mass/volume] in Serum or Plasma [2345-7] 05/08/2024 10:16 AM 225 mg/dL N Blood chemistry[[id number]] Glucose [Mass/volume] in Serum or Plasma [2345-7] 05/07/2024 05:18 PM 361 mg/dL N Blood chemistry[[id number]] Glucose [Mass/volume] in Serum or Plasma [2345-7] 05/07/2024 02:02 PM 285 mg/dL N Blood chemistry[[id number]] Glucose [Mass/volume] in Serum or Plasma [2345-7] 05/07/2024 01:08 PM 181 mg/dL N Blood chemistry[[id number]] Glucose [Mass/volume] in Serum or Plasma [2345-7] 05/07/2024 10:25 AM 265 mg/dL N Blood chemistry[[id number]] Glucose [Mass/volume] in Serum or Plasma [2345-7] 05/06/2024 03:02 PM 295 mg/dL N Blood chemistry[[id number]] Glucose [Mass/volume] in Serum or Plasma [2345-7] 05/06/2024 10:17 AM 225 mg/dL N Blood chemistry[[id number]] Glucose [Mass/volume] in Serum or Plasma [2345-7] 05/06/2024 05:30 PM 274 mg/dL N Blood chemistry[[id number]] Glucose [Mass/volume] in Serum or Plasma [2345-7] 05/06/2024 01:09 PM 184 mg/dL N Blood chemistry[[id number]] Glucose [Mass/volume] in Serum or Plasma [2345-7] 05/05/2024 03:05 PM 280 mg/dL N Blood chemistry[[id number]] Glucose [Mass/volume] in Serum or Plasma [2345-7] 05/05/2024 05:39 PM 255 mg/dL N Blood chemistry[[id number]] Glucose [Mass/volume] in Serum or Plasma [2345-7] 05/05/2024 12:49 PM 192 mg/dL N Blood chemistry[[id number]] Glucose [Mass/volume] in Serum or Plasma [2345-7] 05/05/2024 10:49 AM 285 mg/dL N Blood chemistry[[id number]] Glucose [Mass/volume] in Serum or Plasma [2345-7] 05/04/2024 03:32 PM 287 mg/dL N Blood chemistry[[id number]] Glucose [Mass/volume] in Serum or Plasma [2345-7] 05/04/2024 05:16 PM 280 mg/dL N Blood chemistry[[id number]] Glucose [Mass/volume] in Serum or Plasma [2345-7] 05/04/2024 12:42 PM 186 mg/dL N Blood chemistry[[id number]] Glucose [Mass/volume] in Serum or Plasma [2345-7] 05/04/2024 10:06 AM 228 mg/dL N Blood chemistry[[id number]] Glucose [Mass/volume] in Serum or Plasma [2345-7] 05/03/2024 02:14 PM 244 mg/dL N Blood chemistry[[id number]] Glucose [Mass/volume] in Serum or Plasma [2345-7] 05/03/2024 05:17 PM 303 mg/dL N Blood chemistry[[id number]] Glucose [Mass/volume] in Serum or Plasma [2345-7] 05/03/2024 11:12 AM 176 mg/dL N Blood chemistry[[id number]] Glucose [Mass/volume] in Serum or Plasma [2345-7] 05/03/2024 10:22 AM 218 mg/dL N Blood chemistry[[id number]] Glucose [Mass/volume] in Serum or Plasma [2345-7] 05/02/2024 01:45 PM 257 mg/dL N Blood chemistry[[id number]] Glucose [Mass/volume] in Serum or Plasma [2345-7] 05/02/2024 05:33 PM 230 mg/dL N Blood chemistry[[id number]] Glucose [Mass/volume] in Serum or Plasma [2345-7] 05/02/2024 12:56 PM 183 mg/dL N Blood chemistry[[id number]] Glucose [Mass/volume] in Serum or Plasma [2345-7] 05/02/2024 10:18 AM 217 mg/dL N Blood chemistry[[id number]] Glucose [Mass/volume] in Serum or Plasma [2345-7] 05/01/2024 01:16 PM 202 mg/dL N Blood chemistry[[id number]] Glucose [Mass/volume] in Serum or Plasma [2345-7] 05/01/2024 05:25 PM 196 mg/dL N Blood chemistry[[id number]] Glucose [Mass/volume] in Serum or Plasma [2345-7] 05/01/2024 01:00 PM 174 mg/dL N Blood chemistry[[id number]] Glucose [Mass/volume] in Serum or Plasma [2345-7] 05/01/2024 09:43 AM 164 mg/dL N Blood chemistry[[id number]] Glucose [Mass/volume] in Serum or Plasma [2345-7] 04/30/2024 05:10 PM 257 mg/dL N Blood chemistry[[id number]] Glucose [Mass/volume] in Serum or Plasma [2345-7] 04/30/2024 01:25 PM 236 mg/dL N Blood chemistry[[id number]] Glucose [Mass/volume] in Serum or Plasma [2345-7] 04/30/2024 12:39 PM 176 mg/dL N Blood chemistry[[id number]] Glucose [Mass/volume] in Serum or Plasma [2345-7] 04/30/2024 10:15 AM 133 mg/dL N Blood chemistry[[id number]] Glucose [Mass/volume] in Serum or Plasma [2345-7] 04/29/2024 12:48 PM 280 mg/dL N Blood chemistry[[id number]] Glucose [Mass/volume] in Serum or Plasma [2345-7] 04/29/2024 10:18 AM 139 mg/dL N Blood chemistry[[id number]] Glucose [Mass/volume] in Serum or Plasma [2345-7] 04/29/2024 05:40 PM 229 mg/dL N Blood chemistry[[id number]] Glucose [Mass/volume] in Serum or Plasma [2345-7] 04/29/2024 12:45 PM 137 mg/dL N Blood chemistry[[id number]] Glucose [Mass/volume] in Serum or Plasma [2345-7] 04/28/2024 01:45 PM 228 mg/dL N Blood chemistry[[id number]] Glucose [Mass/volume] in Serum or Plasma [2345-7] 04/28/2024 05:56 PM 212 mg/dL N Blood chemistry[[id number]] Glucose [Mass/volume] in Serum or Plasma [2345-7] 04/28/2024 12:58 PM 166 mg/dL N Blood chemistry[[id number]] Glucose [Mass/volume] in Serum or Plasma [2345-7] 04/28/2024 10:00 AM 217 mg/dL N Blood chemistry[[id number]] Glucose [Mass/volume] in Serum or Plasma [2345-7] 04/27/2024 05:28 PM 238 mg/dL N Blood chemistry[[id number]] Glucose [Mass/volume] in Serum or Plasma [2345-7] 04/27/2024 01:19 PM 255 mg/dL N Blood chemistry[[id number]] Glucose [Mass/volume] in Serum or Plasma [2345-7] 04/27/2024 12:37 PM 203 mg/dL N Blood chemistry[[id number]] Glucose [Mass/volume] in Serum or Plasma [2345-7] 04/27/2024 10:14 AM 187 mg/dL N Blood chemistry[[id number]] Glucose [Mass/volume] in Serum or Plasma [2345-7] 04/26/2024 04:43 PM 303 mg/dL N Blood chemistry[[id number]] Glucose [Mass/volume] in Serum or Plasma [2345-7] 04/26/2024 10:48 AM 222 mg/dL N Blood chemistry[[id number]] Glucose [Mass/volume] in Serum or Plasma [2345-7] 04/26/2024 06:09 PM 148 mg/dL N Blood chemistry[[id number]] Glucose [Mass/volume] in Serum or Plasma [2345-7] 04/26/2024 01:32 PM 129 mg/dL N Blood chemistry[[id number]] Glucose [Mass/volume] in Serum or Plasma [2345-7] 04/25/2024 04:50 PM 205 mg/dL N Blood chemistry[[id number]] Glucose [Mass/volume] in Serum or Plasma [2345-7] 04/25/2024 04:58 PM 184 mg/dL N Blood chemistry[[id number]] Glucose [Mass/volume] in Serum or Plasma [2345-7] 04/25/2024 01:06 PM 166 mg/dL N Blood chemistry[[id number]] Glucose [Mass/volume] in Serum or Plasma [2345-7] 04/25/2024 11:03 AM 241 mg/dL N Blood chemistry[[id number]] Glucose [Mass/volume] in Serum or Plasma [2345-7] 04/24/2024 12:35 PM 346 mg/dL N Blood chemistry[[id number]] Glucose [Mass/volume] in Serum or Plasma [2345-7] 04/24/2024 05:39 PM 250 mg/dL N Blood chemistry[[id number]] Glucose [Mass/volume] in Serum or Plasma [2345-7] 04/24/2024 03:48 PM 128 mg/dL N Blood chemistry[[id number]] Glucose [Mass/volume] in Serum or Plasma [2345-7] 04/24/2024 09:57 AM 242 mg/dL N Blood chemistry[[id number]] Glucose [Mass/volume] in Serum or Plasma [2345-7] 04/23/2024 06:00 PM 152 mg/dL N Blood chemistry[[id number]] Glucose [Mass/volume] in Serum or Plasma [2345-7] 04/23/2024 03:01 PM 378 mg/dL N Blood chemistry[[id number]] Glucose [Mass/volume] in Serum or Plasma [2345-7] 04/23/2024 01:23 PM 140 mg/dL N Blood chemistry[[id number]] Glucose [Mass/volume] in Serum or Plasma [2345-7] 04/23/2024 10:16 AM 162 mg/dL N Blood chemistry[[id number]] Glucose [Mass/volume] in Serum or Plasma [2345-7] 04/22/2024 03:23 PM 212 mg/dL N Blood chemistry[[id number]] Glucose [Mass/volume] in Serum or Plasma [2345-7] 04/22/2024 10:13 AM 217 mg/dL N Blood chemistry[[id number]] Glucose [Mass/volume] in Serum or Plasma [2345-7] 04/22/2024 05:23 PM 232 mg/dL N Blood chemistry[[id number]] Glucose [Mass/volume] in Serum or Plasma [2345-7] 04/22/2024 01:48 PM 172 mg/dL N Blood chemistry[[id number]] Glucose [Mass/volume] in Serum or Plasma [2345-7] 04/22/2024 01:46 PM 172 mg/dL N Blood chemistry[[id number]] Glucose [Mass/volume] in Serum or Plasma [2345-7] 04/21/2024 05:00 PM 174 mg/dL N Blood chemistry[[id number]] Glucose [Mass/volume] in Serum or Plasma [2345-7] 04/21/2024 03:36 PM 188 mg/dL N Blood chemistry[[id number]] Glucose [Mass/volume] in Serum or Plasma [2345-7] 04/21/2024 01:03 PM 124 mg/dL N Blood chemistry[[id number]] Glucose [Mass/volume] in Serum or Plasma [2345-7] 04/21/2024 10:41 AM 196 mg/dL N Blood chemistry[[id number]] Glucose [Mass/volume] in Serum or Plasma [2345-7] 04/20/2024 05:18 PM 195 mg/dL N Blood chemistry[[id number]] Glucose [Mass/volume] in Serum or Plasma [2345-7] 04/20/2024 02:10 PM 202 mg/dL N Blood chemistry[[id number]] Glucose [Mass/volume] in Serum or Plasma [2345-7] 04/20/2024 10:01 AM 136 mg/dL N Blood chemistry[[id number]] Glucose [Mass/volume] in Serum or Plasma [2345-7] 04/20/2024 01:14 PM 118 mg/dL N Blood chemistry[[id number]] Glucose [Mass/volume] in Serum or Plasma [2345-7] 04/20/2024 10:58 AM 199 mg/dL N Blood chemistry[[id number]] Glucose [Mass/volume] in Serum or Plasma [2345-7] 04/19/2024 05:08 PM 233 mg/dL N Blood chemistry[[id number]] Glucose [Mass/volume] in Serum or Plasma [2345-7] 04/19/2024 10:10 AM 186 mg/dL N Blood chemistry[[id number]] Glucose [Mass/volume] in Serum or Plasma [2345-7] 04/19/2024 12:54 PM 145 mg/dL N Blood chemistry[[id number]] Glucose [Mass/volume] in Serum or Plasma [2345-7] 04/18/2024 05:25 PM 230 mg/dL N Blood chemistry[[id number]] Glucose [Mass/volume] in Serum or Plasma [2345-7] 04/18/2024 02:00 PM 206 mg/dL N Blood chemistry[[id number]] Glucose [Mass/volume] in Serum or Plasma [2345-7] 04/18/2024 10:35 AM 142 mg/dL N Blood chemistry[[id number]] Glucose [Mass/volume] in Serum or Plasma [2345-7] 04/18/2024 12:54 PM 150 mg/dL N Blood chemistry[[id number]] Glucose [Mass/volume] in Serum or Plasma [2345-7] 04/17/2024 06:20 PM 141 mg/dL N Blood chemistry[[id number]] Glucose [Mass/volume] in Serum or Plasma [2345-7] 04/17/2024 06:19 PM 194 mg/dL N Blood chemistry[[id number]] Glucose [Mass/volume] in Serum or Plasma [2345-7] 04/17/2024 02:47 PM 206 mg/dL N Blood chemistry[[id number]] Glucose [Mass/volume] in Serum or Plasma [2345-7] 04/17/2024 11:49 AM 114 mg/dL N Blood chemistry[[id number]] Glucose [Mass/volume] in Serum or Plasma [2345-7] 04/16/2024 04:00 PM 242 mg/dL N Blood chemistry[[id number]] Glucose [Mass/volume] in Serum or Plasma [2345-7] 04/16/2024 10:02 AM 129 mg/dL N Blood chemistry[[id number]] Glucose [Mass/volume] in Serum or Plasma [2345-7] 04/16/2024 05:19 PM 217 mg/dL N Blood chemistry[[id number]] Glucose [Mass/volume] in Serum or Plasma [2345-7] 04/16/2024 12:43 PM 141 mg/dL N Blood chemistry[[id number]] Glucose [Mass/volume] in Serum or Plasma [2345-7] 04/15/2024 05:52 PM 200 mg/dL N Blood chemistry[[id number]] Glucose [Mass/volume] in Serum or Plasma [2345-7] 04/15/2024 10:16 AM 182 mg/dL N Blood chemistry[[id number]] Glucose [Mass/volume] in Serum or Plasma [2345-7] 04/15/2024 05:00 PM 134 mg/dL N Blood chemistry[[id number]] Glucose [Mass/volume] in Serum or Plasma [2345-7] 04/15/2024 01:48 PM 157 mg/dL N Blood chemistry[[id number]] Glucose [Mass/volume] in Serum or Plasma [2345-7] 04/14/2024 03:51 PM 249 mg/dL N Blood chemistry[[id number]] Glucose [Mass/volume] in Serum or Plasma [2345-7] 04/14/2024 05:17 PM 168 mg/dL N Blood chemistry[[id number]] Glucose [Mass/volume] in Serum or Plasma [2345-7] 04/14/2024 12:14 PM 143 mg/dL N Blood chemistry[[id number]] Glucose [Mass/volume] in Serum or Plasma [2345-7] 04/14/2024 09:44 AM 157 mg/dL N Blood chemistry[[id number]] Glucose [Mass/volume] in Serum or Plasma [2345-7] 04/13/2024 04:52 PM 295 mg/dL N Blood chemistry[[id number]] Glucose [Mass/volume] in Serum or Plasma [2345-7] 04/13/2024 02:22 PM 188 mg/dL N Blood chemistry[[id number]] Glucose [Mass/volume] in Serum or Plasma [2345-7] 04/13/2024 10:14 AM 130 mg/dL N Blood chemistry[[id number]] Glucose [Mass/volume] in Serum or Plasma [2345-7] 04/13/2024 12:32 PM 149 mg/dL N Blood chemistry[[id number]] Glucose [Mass/volume] in Serum or Plasma [2345-7] 04/12/2024 01:00 PM 289 mg/dL N Blood chemistry[[id number]] Glucose [Mass/volume] in Serum or Plasma [2345-7] 04/12/2024 10:31 AM 145 mg/dL N Blood chemistry[[id number]] Glucose [Mass/volume] in Serum or Plasma [2345-7] 04/12/2024 06:05 PM 206 mg/dL N Blood chemistry[[id number]] Glucose [Mass/volume] in Serum or Plasma [2345-7] 04/12/2024 01:02 PM 149 mg/dL N Blood chemistry[[id number]] Glucose [Mass/volume] in Serum or Plasma [2345-7] 04/11/2024 05:10 PM 390 mg/dL N Blood chemistry[[id number]] Glucose [Mass/volume] in Serum or Plasma [2345-7] 04/11/2024 04:11 PM 206 mg/dL N Blood chemistry[[id number]] Glucose [Mass/volume] in Serum or Plasma [2345-7] 04/11/2024 02:06 PM 110 mg/dL N Blood chemistry[[id number]] Glucose [Mass/volume] in Serum or Plasma [2345-7] 04/11/2024 10:40 AM 162 mg/dL N Blood chemistry[[id number]] Glucose [Mass/volume] in Serum or Plasma [2345-7] 04/10/2024 05:48 PM 164 mg/dL N Blood chemistry[[id number]] Glucose [Mass/volume] in Serum or Plasma [2345-7] 04/10/2024 04:47 PM 160 mg/dL N Blood chemistry[[id number]] Glucose [Mass/volume] in Serum or Plasma [2345-7] 04/10/2024 01:21 PM 137 mg/dL N Blood chemistry[[id number]] Glucose [Mass/volume] in Serum or Plasma [2345-7] 04/10/2024 11:45 AM 336 mg/dL N Blood chemistry[[id number]] Glucose [Mass/volume] in Serum or Plasma [2345-7] 04/09/2024 06:07 PM 185 mg/dL N Blood chemistry[[id number]] Glucose [Mass/volume] in Serum or Plasma [2345-7] 04/09/2024 03:44 PM 235 mg/dL N Blood chemistry[[id number]] Glucose [Mass/volume] in Serum or Plasma [2345-7] 04/09/2024 01:28 PM 134 mg/dL N Blood chemistry[[id number]] Glucose [Mass/volume] in Serum or Plasma [2345-7] 04/09/2024 10:10 AM 150 mg/dL N Blood chemistry[[id number]] Glucose [Mass/volume] in Serum or Plasma [2345-7] 04/08/2024 04:55 PM 152 mg/dL N Blood chemistry[[id number]] Glucose [Mass/volume] in Serum or Plasma [2345-7] 04/08/2024 01:39 PM 234 mg/dL N Blood chemistry[[id number]] Glucose [Mass/volume] in Serum or Plasma [2345-7] 04/08/2024 01:07 PM 137 mg/dL N Blood chemistry[[id number]] Glucose [Mass/volume] in Serum or Plasma [2345-7] 04/08/2024 10:57 AM 174 mg/dL N Blood chemistry[[id number]] Glucose [Mass/volume] in Serum or Plasma [2345-7] 04/07/2024 05:42 PM 113 mg/dL N Blood chemistry[[id number]] Glucose [Mass/volume] in Serum or Plasma [2345-7] 04/07/2024 01:30 PM 248 mg/dL N Blood chemistry[[id number]] Glucose [Mass/volume] in Serum or Plasma [2345-7] 04/07/2024 01:26 PM 141 mg/dL N Blood chemistry[[id number]] Glucose [Mass/volume] in Serum or Plasma [2345-7] 04/07/2024 09:44 AM 194 mg/dL N Blood chemistry[[id number]] Glucose [Mass/volume] in Serum or Plasma [2345-7] 04/06/2024 05:20 PM 176 mg/dL N Blood chemistry[[id number]] Glucose [Mass/volume] in Serum or Plasma [2345-7] 04/06/2024 04:48 PM 196 mg/dL N Blood chemistry[[id number]] Glucose [Mass/volume] in Serum or Plasma [2345-7] 04/06/2024 12:48 PM 108 mg/dL N Blood chemistry[[id number]] Glucose [Mass/volume] in Serum or Plasma [2345-7] 04/06/2024 10:24 AM 140 mg/dL N Blood chemistry[[id number]] Glucose [Mass/volume] in Serum or Plasma [2345-7] 04/05/2024 05:21 PM 197 mg/dL N Blood chemistry[[id number]] Glucose [Mass/volume] in Serum or Plasma [2345-7] 04/05/2024 01:18 PM 183 mg/dL N Blood chemistry[[id number]] Glucose [Mass/volume] in Serum or Plasma [2345-7] 04/05/2024 11:26 AM 114 mg/dL N Blood chemistry[[id number]] Glucose [Mass/volume] in Serum or Plasma [2345-7] 04/05/2024 10:18 AM 156 mg/dL N Blood chemistry[[id number]] Glucose [Mass/volume] in Serum or Plasma [2345-7] 04/04/2024 05:15 PM 196 mg/dL N Blood chemistry[[id number]] Glucose [Mass/volume] in Serum or Plasma [2345-7] 04/04/2024 01:30 PM 222 mg/dL N Blood chemistry[[id number]] Glucose [Mass/volume] in Serum or Plasma [2345-7] 04/04/2024 12:37 PM 135 mg/dL N Blood chemistry[[id number]] Glucose [Mass/volume] in Serum or Plasma [2345-7] 04/04/2024 10:17 AM 150 mg/dL N Blood chemistry[[id number]] Glucose [Mass/volume] in Serum or Plasma [2345-7] 04/04/2024 07:00 AM 200 mg/dL N Blood chemistry[[id number]] Glucose [Mass/volume] in Serum or Plasma [2345-7] 04/03/2024 04:03 PM 266 mg/dL N Blood chemistry[[id number]] Glucose [Mass/volume] in Serum or Plasma [2345-7] 04/03/2024 12:55 PM 388 mg/dL N Blood chemistry[[id number]] Glucose [Mass/volume] in Serum or Plasma [2345-7] 04/03/2024 09:00 AM 176 mg/dL N Blood chemistry[[id number]] Glucose [Mass/volume] in Serum or Plasma [2345-7] 04/02/2024 05:05 PM 220 mg/dL N Blood chemistry[[id number]] Glucose [Mass/volume] in Serum or Plasma [2345-7] 04/02/2024 01:03 PM 213 mg/dL N Blood chemistry[[id number]] Glucose [Mass/volume] in Serum or Plasma [2345-7] 04/02/2024 12:44 PM 126 mg/dL N Blood chemistry[[id number]] Glucose [Mass/volume] in Serum or Plasma [2345-7] 04/02/2024 10:16 AM 160 mg/dL N Blood chemistry[[id number]] Glucose [Mass/volume] in Serum or Plasma [2345-7] 04/01/2024 05:19 PM 217 mg/dL N Blood chemistry[[id number]] Glucose [Mass/volume] in Serum or Plasma [2345-7] 04/01/2024 03:29 PM 219 mg/dL N Blood chemistry[[id number]] Glucose [Mass/volume] in Serum or Plasma [2345-7] 04/01/2024 12:43 PM 240 mg/dL N Blood chemistry[[id number]] Glucose [Mass/volume] in Serum or Plasma [2345-7] 04/01/2024 10:07 AM 163 mg/dL N Blood chemistry[[id number]] Glucose [Mass/volume] in Serum or Plasma [2345-7] 03/31/2024 05:21 PM 173 mg/dL N Blood chemistry[[id number]] Glucose [Mass/volume] in Serum or Plasma [2345-7] 03/31/2024 02:12 PM 267 mg/dL N Blood chemistry[[id number]] Glucose [Mass/volume] in Serum or Plasma [2345-7] 03/31/2024 12:55 PM 136 mg/dL N Blood chemistry[[id number]] Glucose [Mass/volume] in Serum or Plasma [2345-7] 03/31/2024 10:08 AM 180 mg/dL N Blood chemistry[[id number]] Glucose [Mass/volume] in Serum or Plasma [2345-7] 03/30/2024 05:00 PM 212 mg/dL N Blood chemistry[[id number]] Glucose [Mass/volume] in Serum or Plasma [2345-7] 03/30/2024 03:02 PM 180 mg/dL N Blood chemistry[[id number]] Glucose [Mass/volume] in Serum or Plasma [2345-7] 03/30/2024 12:38 PM 224 mg/dL N Blood chemistry[[id number]] Glucose [Mass/volume] in Serum or Plasma [2345-7] 03/30/2024 10:05 AM 163 mg/dL N Blood chemistry[[id number]] Glucose [Mass/volume] in Serum or Plasma [2345-7] 03/29/2024 05:53 PM 127 mg/dL N Blood chemistry[[id number]] Glucose [Mass/volume] in Serum or Plasma [2345-7] 03/29/2024 03:30 PM 217 mg/dL N Blood chemistry[[id number]] Glucose [Mass/volume] in Serum or Plasma [2345-7] 03/29/2024 01:03 PM 111 mg/dL N Blood chemistry[[id number]] Glucose [Mass/volume] in Serum or Plasma [2345-7] 03/29/2024 10:29 AM 171 mg/dL N Blood chemistry[[id number]] Glucose [Mass/volume] in Serum or Plasma [2345-7] 03/28/2024 05:44 PM 117 mg/dL N Blood chemistry[[id number]] Glucose [Mass/volume] in Serum or Plasma [2345-7] 03/28/2024 03:24 PM 209 mg/dL N Blood chemistry[[id number]] Glucose [Mass/volume] in Serum or Plasma [2345-7] 03/28/2024 01:36 PM 133 mg/dL N Blood chemistry[[id number]] Glucose [Mass/volume] in Serum or Plasma [2345-7] 03/28/2024 11:30 AM 156 mg/dL N Blood chemistry[[id number]] Glucose [Mass/volume] in Serum or Plasma [2345-7] 03/27/2024 05:23 PM 177 mg/dL N Blood chemistry[[id number]] Glucose [Mass/volume] in Serum or Plasma [2345-7] 03/27/2024 02:28 PM 204 mg/dL N Blood chemistry[[id number]] Glucose [Mass/volume] in Serum or Plasma [2345-7] 03/27/2024 01:32 PM 123 mg/dL N Blood chemistry[[id number]] Glucose [Mass/volume] in Serum or Plasma [2345-7] 03/27/2024 11:45 AM 151 mg/dL N Blood chemistry[[id number]] Glucose [Mass/volume] in Serum or Plasma [2345-7] 03/27/2024 07:13 AM 178 mg/dL N Blood chemistry[[id number]] Glucose [Mass/volume] in Serum or Plasma [2345-7] 03/26/2024 05:42 PM 168 mg/dL N Blood chemistry[[id number]] Glucose [Mass/volume] in Serum or Plasma [2345-7] 03/26/2024 01:23 PM 138 mg/dL N Blood chemistry[[id number]] Glucose [Mass/volume] in Serum or Plasma [2345-7] 03/26/2024 11:29 AM 146 mg/dL N Blood chemistry[[id number]] Glucose [Mass/volume] in Serum or Plasma [2345-7] 03/25/2024 05:10 PM 163 mg/dL N Blood chemistry[[id number]] Glucose [Mass/volume] in Serum or Plasma [2345-7] 03/25/2024 03:39 PM 184 mg/dL N Blood chemistry[[id number]] Glucose [Mass/volume] in Serum or Plasma [2345-7] 03/25/2024 01:19 PM 130 mg/dL N Blood chemistry[[id number]] Glucose [Mass/volume] in Serum or Plasma [2345-7] 03/25/2024 10:27 AM 175 mg/dL N Blood chemistry[[id number]] Glucose [Mass/volume] in Serum or Plasma [2345-7] 03/24/2024 05:23 PM 137 mg/dL N Blood chemistry[[id number]] Glucose [Mass/volume] in Serum or Plasma [2345-7] 03/24/2024 03:03 PM 185 mg/dL N Blood chemistry[[id number]] Glucose [Mass/volume] in Serum or Plasma [2345-7] 03/24/2024 12:56 PM 157 mg/dL N Blood chemistry[[id number]] Glucose [Mass/volume] in Serum or Plasma [2345-7] 03/24/2024 09:10 AM 169 mg/dL N Blood chemistry[[id number]] Glucose [Mass/volume] in Serum or Plasma [2345-7] 03/23/2024 05:22 PM 155 mg/dL N Blood chemistry[[id number]] Glucose [Mass/volume] in Serum or Plasma [2345-7] 03/23/2024 03:55 PM 259 mg/dL N Blood chemistry[[id number]] Glucose [Mass/volume] in Serum or Plasma [2345-7] 03/23/2024 12:51 PM 122 mg/dL N Blood chemistry[[id number]] Glucose [Mass/volume] in Serum or Plasma [2345-7] 03/23/2024 10:49 AM 140 mg/dL N Blood chemistry[[id number]] Glucose [Mass/volume] in Serum or Plasma [2345-7] 03/22/2024 05:41 PM 155 mg/dL N Blood chemistry[[id number]] Glucose [Mass/volume] in Serum or Plasma [2345-7] 03/22/2024 01:32 PM 257 mg/dL N Blood chemistry[[id number]] Glucose [Mass/volume] in Serum or Plasma [2345-7] 03/22/2024 12:56 PM 130 mg/dL N Blood chemistry[[id number]] Glucose [Mass/volume] in Serum or Plasma [2345-7] 03/22/2024 09:37 AM 163 mg/dL N Blood chemistry[[id number]] Glucose [Mass/volume] in Serum or Plasma [2345-7] 03/21/2024 05:37 PM 224 mg/dL N Blood chemistry[[id number]] Glucose [Mass/volume] in Serum or Plasma [2345-7] 03/21/2024 04:50 PM 181 mg/dL N Blood chemistry[[id number]] Glucose [Mass/volume] in Serum or Plasma [2345-7] 03/21/2024 12:32 PM 135 mg/dL N Blood chemistry[[id number]] Glucose [Mass/volume] in Serum or Plasma [2345-7] 03/21/2024 12:28 PM 135 mg/dL N Blood chemistry[[id number]] Glucose [Mass/volume] in Serum or Plasma [2345-7] 03/21/2024 10:17 AM 171 mg/dL N Blood chemistry[[id number]] Glucose [Mass/volume] in Serum or Plasma [2345-7] 03/20/2024 05:00 PM 119 mg/dL N Blood chemistry[[id number]] Glucose [Mass/volume] in Serum or Plasma [2345-7] 03/20/2024 02:58 PM 157 mg/dL N Blood chemistry[[id number]] Glucose [Mass/volume] in Serum or Plasma [2345-7] 03/20/2024 11:16 AM 127 mg/dL N Blood chemistry[[id number]] Glucose [Mass/volume] in Serum or Plasma [2345-7] 03/19/2024 04:58 PM 196 mg/dL N Blood chemistry[[id number]] Glucose [Mass/volume] in Serum or Plasma [2345-7] 03/19/2024 03:09 PM 212 mg/dL N Blood chemistry[[id number]] Glucose [Mass/volume] in Serum or Plasma [2345-7] 03/19/2024 01:13 PM 122 mg/dL N Blood chemistry[[id number]] Glucose [Mass/volume] in Serum or Plasma [2345-7] 03/19/2024 10:18 AM 133 mg/dL N Blood chemistry[[id number]] Glucose [Mass/volume] in Serum or Plasma [2345-7] 03/18/2024 05:25 PM 200 mg/dL N Blood chemistry[[id number]] Glucose [Mass/volume] in Serum or Plasma [2345-7] 03/18/2024 02:31 PM 185 mg/dL N Blood chemistry[[id number]] Glucose [Mass/volume] in Serum or Plasma [2345-7] 03/18/2024 01:10 PM 121 mg/dL N Blood chemistry[[id number]] Glucose [Mass/volume] in Serum or Plasma [2345-7] 03/18/2024 10:02 AM 143 mg/dL N Blood chemistry[[id number]] Glucose [Mass/volume] in Serum or Plasma [2345-7] 03/17/2024 05:40 PM 188 mg/dL N Blood chemistry[[id number]] Glucose [Mass/volume] in Serum or Plasma [2345-7] 03/17/2024 01:08 PM 124 mg/dL N Blood chemistry[[id number]] Glucose [Mass/volume] in Serum or Plasma [2345-7] 03/17/2024 01:03 PM 201 mg/dL N Blood chemistry[[id number]] Glucose [Mass/volume] in Serum or Plasma [2345-7] 03/17/2024 10:24 AM 159 mg/dL N Blood chemistry[[id number]] Glucose [Mass/volume] in Serum or Plasma [2345-7] 03/16/2024 05:21 PM 222 mg/dL N Blood chemistry[[id number]] Glucose [Mass/volume] in Serum or Plasma [2345-7] 03/16/2024 03:07 PM 185 mg/dL N Blood chemistry[[id number]] Glucose [Mass/volume] in Serum or Plasma [2345-7] 03/16/2024 12:59 PM 129 mg/dL N Blood chemistry[[id number]] Glucose [Mass/volume] in Serum or Plasma [2345-7] 03/16/2024 09:27 AM 139 mg/dL N Blood chemistry[[id number]] Glucose [Mass/volume] in Serum or Plasma [2345-7] 03/15/2024 05:49 PM 138 mg/dL N Blood chemistry[[id number]] Glucose [Mass/volume] in Serum or Plasma [2345-7] 03/15/2024 02:41 PM 237 mg/dL N Blood chemistry[[id number]] Glucose [Mass/volume] in Serum or Plasma [2345-7] 03/15/2024 01:05 PM 128 mg/dL N Blood chemistry[[id number]] Glucose [Mass/volume] in Serum or Plasma [2345-7] 03/15/2024 11:26 AM 166 mg/dL N Blood chemistry[[id number]] Glucose [Mass/volume] in Serum or Plasma [2345-7] 03/14/2024 05:35 PM 184 mg/dL N Blood chemistry[[id number]] Glucose [Mass/volume] in Serum or Plasma [2345-7] 03/14/2024 05:27 PM 222 mg/dL N Blood chemistry[[id number]] Glucose [Mass/volume] in Serum or Plasma [2345-7] 03/14/2024 03:34 PM 147 mg/dL N Blood chemistry[[id number]] Glucose [Mass/volume] in Serum or Plasma [2345-7] 03/14/2024 02:02 PM 147 mg/dL N Blood chemistry[[id number]] Glucose [Mass/volume] in Serum or Plasma [2345-7] 03/14/2024 10:41 AM 300 mg/dL N Blood chemistry[[id number]] Glucose [Mass/volume] in Serum or Plasma [2345-7] 03/14/2024 08:38 AM 225 mg/dL N Blood chemistry[[id number]] Glucose [Mass/volume] in Serum or Plasma [2345-7] 03/13/2024 05:42 PM 229 mg/dL N Blood chemistry[[id number]] Glucose [Mass/volume] in Serum or Plasma [2345-7] 03/13/2024 01:34 PM 140 mg/dL N Blood chemistry[[id number]] Glucose [Mass/volume] in Serum or Plasma [2345-7] 03/13/2024 10:17 AM 144 mg/dL N Blood chemistry[[id number]] Glucose [Mass/volume] in Serum or Plasma [2345-7] 03/12/2024 05:21 PM 199 mg/dL N Blood chemistry[[id number]] Glucose [Mass/volume] in Serum or Plasma [2345-7] 03/12/2024 01:39 PM 173 mg/dL N Blood chemistry[[id number]] Glucose [Mass/volume] in Serum or Plasma [2345-7] 03/12/2024 01:10 PM 159 mg/dL N Blood chemistry[[id number]] Glucose [Mass/volume] in Serum or Plasma [2345-7] 03/12/2024 10:04 AM 129 mg/dL N Blood chemistry[[id number]] Glucose [Mass/volume] in Serum or Plasma [2345-7] 03/11/2024 04:51 PM 151 mg/dL N Blood chemistry[[id number]] Glucose [Mass/volume] in Serum or Plasma [2345-7] 03/11/2024 02:32 PM 241 mg/dL N Blood chemistry[[id number]] Glucose [Mass/volume] in Serum or Plasma [2345-7] 03/11/2024 01:26 PM 68 mg/dL N Blood chemistry[[id number]] Glucose [Mass/volume] in Serum or Plasma [2345-7] 03/11/2024 01:06 PM 68 mg/dL N Blood chemistry[[id number]] Glucose [Mass/volume] in Serum or Plasma [2345-7] 03/11/2024 09:57 AM 136 mg/dL N Blood chemistry[[id number]] Glucose [Mass/volume] in Serum or Plasma [2345-7] 03/10/2024 05:02 PM 170 mg/dL N Blood chemistry[[id number]] Glucose [Mass/volume] in Serum or Plasma [2345-7] 03/10/2024 03:05 PM 136 mg/dL N Blood chemistry[[id number]] Glucose [Mass/volume] in Serum or Plasma [2345-7] 03/10/2024 12:59 PM 166 mg/dL N Blood chemistry[[id number]] Glucose [Mass/volume] in Serum or Plasma [2345-7] 03/10/2024 10:44 AM 148 mg/dL N Blood chemistry[[id number]] Glucose [Mass/volume] in Serum or Plasma [2345-7] 03/10/2024 10:00 AM 304 mg/dL N Blood chemistry[[id number]] Glucose [Mass/volume] in Serum or Plasma [2345-7] 03/09/2024 05:23 PM 163 mg/dL N Blood chemistry[[id number]] Glucose [Mass/volume] in Serum or Plasma [2345-7] 03/09/2024 11:56 AM 118 mg/dL N Blood chemistry[[id number]] Glucose [Mass/volume] in Serum or Plasma [2345-7] 03/09/2024 11:46 AM 118 mg/dL N Blood chemistry[[id number]] Glucose [Mass/volume] in Serum or Plasma [2345-7] 03/09/2024 09:47 AM 145 mg/dL N Blood chemistry[[id number]] Glucose [Mass/volume] in Serum or Plasma [2345-7] 03/08/2024 05:11 PM 185 mg/dL N Blood chemistry[[id number]] Glucose [Mass/volume] in Serum or Plasma [2345-7] 03/08/2024 01:33 PM 218 mg/dL N Blood chemistry[[id number]] Glucose [Mass/volume] in Serum or Plasma [2345-7] 03/08/2024 01:00 PM 138 mg/dL N Blood chemistry[[id number]] Glucose [Mass/volume] in Serum or Plasma [2345-7] 03/08/2024 12:59 PM 138 mg/dL N Blood chemistry[[id number]] Glucose [Mass/volume] in Serum or Plasma [2345-7] 03/08/2024 10:12 AM 137 mg/dL N Blood chemistry[[id number]] Glucose [Mass/volume] in Serum or Plasma [2345-7] 03/07/2024 05:12 PM 201 mg/dL N Blood chemistry[[id number]] Glucose [Mass/volume] in Serum or Plasma [2345-7] 03/07/2024 02:17 PM 167 mg/dL N Blood chemistry[[id number]] Glucose [Mass/volume] in Serum or Plasma [2345-7] 03/07/2024 01:02 PM 121 mg/dL N Blood chemistry[[id number]] Glucose [Mass/volume] in Serum or Plasma [2345-7] 03/07/2024 10:14 AM 127 mg/dL N Blood chemistry[[id number]] Glucose [Mass/volume] in Serum or Plasma [2345-7] 03/07/2024 09:42 AM 191 mg/dL N Blood chemistry[[id number]] Glucose [Mass/volume] in Serum or Plasma [2345-7] 03/06/2024 04:39 PM 207 mg/dL N Blood chemistry[[id number]] Glucose [Mass/volume] in Serum or Plasma [2345-7] 03/06/2024 01:20 PM 143 mg/dL N Blood chemistry[[id number]] Glucose [Mass/volume] in Serum or Plasma [2345-7] 03/06/2024 09:25 AM 199 mg/dL N Blood chemistry[[id number]] Glucose [Mass/volume] in Serum or Plasma [2345-7] 03/05/2024 05:15 PM 220 mg/dL N Blood chemistry[[id number]] Glucose [Mass/volume] in Serum or Plasma [2345-7] 03/05/2024 02:34 PM 185 mg/dL N Blood chemistry[[id number]] Glucose [Mass/volume] in Serum or Plasma [2345-7] 03/05/2024 12:51 PM 103 mg/dL N Blood chemistry[[id number]] Glucose [Mass/volume] in Serum or Plasma [2345-7] 03/05/2024 10:13 AM 147 mg/dL N Blood chemistry[[id number]] Glucose [Mass/volume] in Serum or Plasma [2345-7] 03/04/2024 04:29 PM 178 mg/dL N Tuberculosis reaction wheal[ 57110-0] Tuberculosis reaction wheal [18796-4] 03/04/2024 02:34 PM 0 mm NEG Blood chemistry[[id number]] Glucose [Mass/volume] in Serum or Plasma [2345-7] 03/04/2024 01:41 PM 135 mg/dL N Blood chemistry[[id number]] Glucose [Mass/volume] in Serum or Plasma [2345-7] 03/04/2024 12:01 PM 109 mg/dL N Blood chemistry[[id number]] Glucose [Mass/volume] in Serum or Plasma [2345-7] 03/04/2024 09:29 AM 130 mg/dL N Blood chemistry[[id number]] Glucose [Mass/volume] in Serum or Plasma [2345-7] 03/03/2024 04:35 PM 168 mg/dL N Blood chemistry[[id number]] Glucose [Mass/volume] in Serum or Plasma [2345-7] 03/03/2024 01:24 PM 143 mg/dL N Blood chemistry[[id number]] Glucose [Mass/volume] in Serum or Plasma [2345-7] 03/03/2024 11:59 AM 107 mg/dL N Blood chemistry[[id number]] Glucose [Mass/volume] in Serum or Plasma [2345-7] 03/03/2024 10:02 AM 112 mg/dL N Blood chemistry[[id number]] Glucose [Mass/volume] in Serum or Plasma [2345-7] 03/02/2024 02:46 PM 185 mg/dL N Blood chemistry[[id number]] Glucose [Mass/volume] in Serum or Plasma [2345-7] 03/02/2024 12:30 PM 125 mg/dL N Blood chemistry[[id number]] Glucose [Mass/volume] in Serum or Plasma [2345-7] 03/02/2024 08:08 AM 191 mg/dL N Blood chemistry[[id number]] Glucose [Mass/volume] in Serum or Plasma [2345-7] 03/01/2024 04:39 PM 183 mg/dL N Blood chemistry[[id number]] Glucose [Mass/volume] in Serum or Plasma [2345-7] 03/01/2024 01:35 PM 151 mg/dL N Blood chemistry[[id number]] Glucose [Mass/volume] in Serum or Plasma [2345-7] 03/01/2024 12:59 PM 122 mg/dL N Blood chemistry[[id number]] Glucose [Mass/volume] in Serum or Plasma [2345-7] 03/01/2024 09:27 AM 106 mg/dL N Blood chemistry[[id number]] Glucose [Mass/volume] in Serum or Plasma [2345-7] 02/29/2024 04:43 PM 200 mg/dL N Blood chemistry[[id number]] Glucose [Mass/volume] in Serum or Plasma [2345-7] 02/29/2024 12:59 PM 177 mg/dL N Blood chemistry[[id number]] Glucose [Mass/volume] in Serum or Plasma [2345-7] 02/29/2024 11:59 AM 133 mg/dL N Blood chemistry[[id number]] Glucose [Mass/volume] in Serum or Plasma [2345-7] 02/29/2024 10:10 AM 255 mg/dL N Blood chemistry[[id number]] Glucose [Mass/volume] in Serum or Plasma [2345-7] 02/28/2024 03:54 PM 260 mg/dL N Blood chemistry[[id number]] Glucose [Mass/volume] in Serum or Plasma [2345-7] 02/28/2024 03:18 PM 189 mg/dL N Blood chemistry[[id number]] Glucose [Mass/volume] in Serum or Plasma [2345-7] 02/28/2024 01:44 PM 122 mg/dL N Blood chemistry[[id number]] Glucose [Mass/volume] in Serum or Plasma [2345-7] 02/28/2024 09:04 AM 216 mg/dL N Blood chemistry[[id number]] Glucose [Mass/volume] in Serum or Plasma [2345-7] 02/27/2024 04:21 PM 150 mg/dL N Blood chemistry[[id number]] Glucose [Mass/volume] in Serum or Plasma [2345-7] 02/27/2024 03:57 PM 168 mg/dL N Blood chemistry[[id number]] Glucose [Mass/volume] in Serum or Plasma [2345-7] 02/27/2024 12:44 PM 130 mg/dL N Blood chemistry[[id number]] Glucose [Mass/volume] in Serum or Plasma [2345-7] 02/27/2024 09:00 AM 120 mg/dL N Blood chemistry[[id number]] Glucose [Mass/volume] in Serum or Plasma [2345-7] 02/26/2024 04:41 PM 150 mg/dL N Blood chemistry[[id number]] Glucose [Mass/volume] in Serum or Plasma [2345-7] 02/26/2024 03:34 PM 212 mg/dL N Blood chemistry[[id number]] Glucose [Mass/volume] in Serum or Plasma [2345-7] 02/26/2024 11:57 AM 165 mg/dL N Blood chemistry[[id number]] Glucose [Mass/volume] in Serum or Plasma [2345-7] 02/26/2024 09:38 AM 135 mg/dL N Blood chemistry[[id number]] Glucose [Mass/volume] in Serum or Plasma [2345-7] 02/26/2024 06:25 AM 141 mg/dL N Tuberculosis reaction wheal[ 65678-9] Tuberculosis reaction wheal [99773-6] 02/25/2024 04:13 PM 0 mm NEG Blood chemistry[[id number]] Glucose [Mass/volume] in Serum or Plasma [2345-7] 02/25/2024 04:09 PM 107 mg/dL N Blood chemistry[[id number]] Glucose [Mass/volume] in Serum or Plasma [2345-7] 02/25/2024 12:28 PM 113 mg/dL N Blood chemistry[[id number]] Glucose [Mass/volume] in Serum or Plasma [2345-7] 02/25/2024 09:17 AM 228 mg/dL N COVID-19 Test Viral Antigen null flavor [null] 02/24/2024 04:00 PM See note NEG COVID-19 Test Viral Antigen Blood chemistry[[id number]] Glucose [Mass/volume] in Serum or Plasma [2345-7] 02/24/2024 03:21 PM 160 mg/dL N Allergies, adverse reactions, alerts Substance Reaction Date Status Type Penicillins (PCN) 02/24/2024 Non Blake g Sulfonamides (Sulfa) 02/24/2024 Non Drug Immunizations Vaccine Route Date Status COVID-19 Vaccine Unassigned Route of Administration Completed COVID-19 Vaccine Unassigned Route of Administration Completed COVID-19 Vaccine Unassigned Route of Administration Completed COVID-19 Vaccine Unassigned Route of Administration Completed RSV Vaccine Unassigned Route of Administration 2024 Completed Medications Medication Instructions Route Dosage Frequency Start Date Stop Date Indications Status acetaminophen 500 mg tablet (acetaminophen) 1, oral, Every 6 Hours - PRN, Clinical indication: Fever/Pain oral 1.0 6.0 h 2023 Active allopurinol 300 mg tablet (allopurinol) 1, oral, Once A Day, DX: gout oral 1.0 1.0 d 2023 Gout, unspecified Active amiodarone 200 mg tablet (amiodarone) 1, oral, Once A Day oral 1.0 1.0 d 2023 Active amitriptyline 25 mg tablet (amitriptyline) 1 tab, oral, At Bedtime, Give 1 tab po at HS x 2 weeks then DC oral 1.0 04/24 Active atorvastatin 20 mg tablet (atorvastatin) 1, oral, Once A Day oral 1.0 1.0 d 2023 Active Biofreeze (menthol) (menthol) 4 % gel (Biofreeze (menthol) (menthol)) as directed, topical, Every 4 Hours - PRN, Apply to affected area every 4 hours as needed for pain topical 1.0 4.0 h 05/17 Active Breztri Aerosphere (budesonide-gly copyr-formotero l) 160-9-4.8 mcg/actuation HFA aerosol inhaler (Breztri Aerosphere (budesonide-gly copyr-formotero l)) 2 puffs, inhalation, Twice A Day inhalation 1.0 12.0 h 2023 Chronic obstructive pulmonary disease, unspecified Active carboxymethylce llulose sodium 0.5 % dropperette (carboxymethylc ellulose sodium) 1 gtt each eye, ophthalmic (eye), Once A Day - PRN, Clinical indication: dry eyes 1.0 1.0 d 05/18 Active Cardizem LA (diltiazem hcl) 360 mg tablet extended release 24 hr (Cardizem LA (diltiazem hcl)) 1, oral, Once A Day oral 1.0 1.0 d 06/05 Active cholecalciferol (vitamin D3) 25 mcg (1,000 unit) capsule (cholecalcifero l (vitamin D3)) 1, oral, Once A Day oral 1.0 1.0 d 2023 Active Clear Eyes Natural Tears (polyvinyl alcohol-povidon e) 0.5-0.6 % drops (Clear Eyes Natural Tears (polyvinyl alcohol-povidon e)) 2 gtts bilate eyes, ophthalmic (eye), Twice A Day - PRN, Administer 2gtts bilate eyes BID PRN dry eyes 1.0 12.0 h 04/13 Active cyclosporine 0.05 % dropperette (cyclosporine) 1 gtt, ophthalmic (eye), Twice A Day, 1 gtt each eye for dry eye 1.0 12.0 h 05/18 Active dapagliflozin propanediol 10 mg tablet (dapagliflozin propanediol) 1, oral, Once A Day oral 1.0 1.0 d 2023 Active docusate sodium 100 mg tablet (docusate sodium) 1, oral, Twice A Day oral 1.0 12.0 h 2023 Active Dulcolax (bisacodyl) (bisacodyl) 5 mg tablet,delayed release (DR/EC) (Dulcolax (bisacodyl) (bisacodyl)) 2 tabs/10mg, oral, Once A Day - PRN, Give if no results from MOM oral 1.0 1.0 d 2023 Active Dulcolax (bisacodyl) (bisacodyl) 10 mg suppository (Dulcolax (bisacodyl) (bisacodyl)) 1 suppository, rectal, Once A Day - PRN, Give rectally if can't take p/o, if no results from MOM rectal 1.0 1.0 d 2023 Active Eliquis (apixaban) 5 mg tablet (Eliquis (apixaban)) 1, oral, Twice A Day oral 1.0 12.0 h 2023 Active esomeprazole magnesium 40 mg capsule,delayed release(DR/EC) (esomeprazole magnesium) 1, oral, Twice A Day oral 1.0 12.0 h 2023 Active ferrous sulfate 325 mg (65 mg iron) tablet (ferrous sulfate) 1, oral, Twice A Day oral 1.0 12.0 h 07/17 Active Fleet Enema (sodium phosphates) 19-7 gram/118 mL enema (Fleet Enema (sodium phosphates)) 1 application, rectal, Once A Day - PRN, Give fleets if no results from MOM and Dulcolax rectal 1.0 1.0 d 2023 Active Flonase Allergy Relief (fluticasone propionate) 50 mcg/actuation spray,suspensio n (Flonase Allergy Relief (fluticasone propionate)) 1 SPRAY, nasal, Twice A Day, 1 SPRAY BOTH NOSTRILS bid nasal 1.0 12.0 h 2023 Active ipratropium-alb uterol 0.5 mg-3 mg(2.5 mg base)/3 mL solution for nebulization (ipratropium-al buterol) 1 inh, inhalation, Every 6 Hours - PRN, Clinical indication: SOB inhalation 1.0 6.0 h 2023 Active latanoprost 0.005 % drops (latanoprost) 1 gtt both eyes, ophthalmic (eye), At Bedtime 1.0 05/18 Active Lidoderm (lidocaine) 5 % adhesive patch,medicated (Lidoderm (lidocaine)) as directed, topical, Twice A Day, Apply to lower back in am and remove in hs topical 1.0 12.0 h 2023 Active MediHoney (honey) (honey) 80 % gel (MediHoney (honey) (honey)) as directed, topical, Every Shift, Rt inner ankle: Cleanse with ns and gauze, apply medi-honey to open area only, then skin prep to intact skin q shift and cover with bordered foam topical 1.0 8.0 h 05/02 Active metoclopramide HCl 10 mg tablet (metoclopramide HCl) 1, oral, Four Times A Day oral 1.0 6.0 h 2023 Active metoprolol tartrate 100 mg tablet (metoprolol tartrate) 1, oral, Twice A Day oral 1.0 12.0 h 12/13 Active midodrine 5 mg tablet (midodrine) 3, oral, Four Times A Day oral 1.0 6.0 h 06/05 Active Milk of Magnesia (magnesium hydroxide) 400 mg/5 mL suspension (Milk of Magnesia (magnesium hydroxide)) 30 ml, oral, Every 72 Hours - PRN, if no BM in 3 daysDO NOT GIVE TO RENAL PATIENTS--GO TO DULCOLAX ORDERS oral 1.0 72.0 h 2023 Active montelukast 10 mg tablet (montelukast) 1, oral, At Bedtime oral 1.0 2023 Chronic obstructive pulmonary disease, unspecified Active Myrbetriq (mirabegron) 50 mg tablet extended release 24 hr (Myrbetriq (mirabegron)) 1, oral, Once A Day oral 1.0 1.0 d 08/14 Active Novolin R FlexPen (insulin regular human) 100 unit/mL (3 mL) insulin pen (Novolin R FlexPen (insulin regular human)) Per Sliding Scale, subcutaneous, Before Meals, If Blood Sugar is less than 60, call MD.If Blood Sugar is 141 to 180, give 2 Units.If Blood Sugar is 181 to 220, give 3 Units.If Blood Sugar is 221 to 260, give 4 Units.If Blood Sugar is 261 to 300, give 5 Units.If Blood Sugar is 301 to 350, give 6 Units.If Blood Sugar is greater than 350, give 7 Units. subcutaneo us 1.0 05/08 Active nystatin 100,000 unit/gram cream (nystatin) as directed, topical, Every Shift, Yusra-folds: Cleanse with soap and water, dry completely apply cream q shift till healed then dc topical 1.0 8.0 h 05/03 Active polyethylene glycol 3350 17 gram/dose powder (polyethylene glycol 3350) 17 gram, oral, Once A Day, mix in 8 oz water or juice daily oral 1.0 1.0 d 2023 Active potassium chloride 10 mEq tablet extended release (potassium chloride) 1, oral, Once A Day oral 1.0 1.0 d 06/15 Active pregabalin 50 mg capsule (pregabalin) 1, oral, Three Times A Day oral 1.0 8.0 h 05/08 Active Senior Tabs (fjhqzfmx-ybw-v n-jphikqh-nzqlm n) 0.4 mg-300 mcg- 250 mcg tablet (Senior Tabs (lqvgqtkt-rhz-c v-vnyvrwt-bufwi n)) 1, oral, Once A Day oral 1.0 1.0 d 2023 Active senna 8.6 mg tablet (senna) 1, oral, Twice A Day oral 1.0 12.0 h 2023 Active Simbrinza (brinzolamide-b rimonidine) 1-0.2 % drops,suspensio n (Simbrinza (brinzolamide-b rimonidine)) 1gtt both eyes, ophthalmic (eye), Twice A Day, glacoma 1.0 12.0 h 05/18 Active spironolactone 25 mg tablet (spironolactone ) 1/2 tab, oral, Once A Day, chf oral 1.0 1.0 d 2023 Active tamsulosin 0.4 mg capsule (tamsulosin) 1, oral, Twice A Day oral 1.0 12.0 h 2023 Active testosterone cypionate 200 mg/mL oil (testosterone cypionate) 200mg, intramuscular , Once A Day Every 14 Days intramuscu lar 1.0 1.0 d 2023 Active tizanidine 4 mg capsule (tizanidine) 1, oral, Every 8 Hours - PRN, Clinical indication: Muscle Spasms oral 1.0 8.0 h 08/14 Active Tresiba FlexTouch U-100 (insulin degludec) 100 unit/mL (3 mL) insulin pen (Tresiba FlexTouch U-100 (insulin degludec)) 62 units, subcutaneous, Once A Day subcutaneo us 1.0 1.0 d 05/08 Active Tylenol (acetaminophen) 325 mg tablet (Tylenol (acetaminophen) ) 2 tabs/650mg, oral, Every 6 Hours - PRN, as needed for PRN pain/increase d tempMay give rectally if necessary oral 1.0 6.0 h 05/02 Active Zyrtec (cetirizine) 10 mg tablet (Zyrtec (cetirizine)) 1, oral, Once A Day - PRN, Clinical indication: Allergies oral 1.0 1.0 d 2023 Active amitriptyline 50 mg tablet (amitriptyline) 1, oral, At Bedtime oral 1.0 04/11 Active hydrocodone-gabby taminophen 5-325 mg tablet (hydrocodone-ac etaminophen) 1, oral, Three Times A Day - PRN oral 1.0 8.0 h 04/11 Active Incruse Ellipta (umeclidinium) 62.5 mcg/actuation blister with device (Incruse Ellipta (umeclidinium)) 1 puff, inhalation, Once A Day inhalation 1.0 1.0 d 04/04 Active MediHoney (honey) (honey) 80 % gel (MediHoney (honey) (honey)) as directed, topical, Every Shift, Rt inner ankle: Cleanse with ns and gauze, apply medi-honey q shift and cover with bordered foam topical 1.0 8.0 h 04/05 Active polyvinyl alcohol 1.4 % drops (polyvinyl alcohol) 2 drops, both eyes, Twice A Day - PRN, for dry eyes 1.0 12.0 h 05/18 Active hydrocodone-gabby taminophen 5-325 mg tablet (hydrocodone-ac etaminophen) 1 tab, oral, At Bedtime - PRN, clinical indication : pain oral 1.0 08/14 Active Novolog FlexPen U-100 Insulin (insulin aspart u-100) 100 unit/mL (3 mL) insulin pen (Novolog FlexPen U-100 Insulin (insulin aspart u-100)) 10 units, subcutaneous, With Meals subcutaneo us 1.0 07/18 Active Tresiba FlexTouch U-100 (insulin degludec) 100 unit/mL (3 mL) insulin pen (Tresiba FlexTouch U-100 (insulin degludec)) 70 units, subcutaneous, Once A Day subcutaneo us 1.0 1.0 d 06/15 Active pregabalin 50 mg capsule (pregabalin) 50mg, oral, Three Times A Day oral 1.0 8.0 h 12/12 Active Macrobid (nitrofurantoin monohyd/m-cryst ) 100 mg capsule (Macrobid (nitrofurantoin monohyd/m-cryst )) 1, oral, Twice A Day, Macrobid 100mg PO BID X 7 days for UTI oral 1.0 12.0 h 05/20 Active Macrobid (nitrofurantoin monohyd/m-cryst ) 100 mg capsule (Macrobid (nitrofurantoin monohyd/m-cryst )) 1, oral, Twice A Day, Macrobid 100mg PO BID X 7 days for UTI oral 1.0 12.0 h 05/14 Active TobraDex (tobramycin-dex amethasone) 0.3-0.1 % ointment (TobraDex (tobramycin-dex amethasone)) As directed, ophthalmic (eye), Three Times A Day, Apply to right eye three times daily 1.0 8.0 h 05/27 Active levofloxacin 750 mg tablet (levofloxacin) 1, oral, Once A Day oral 1.0 1.0 d 07/07 Active TobraDex (tobramycin-dex amethasone) 0.3-0.1 % ointment (TobraDex (tobramycin-dex amethasone)) as directed, ophthalmic (eye), Three Times A Day, Right eye: Apply 3x's daily 1.0 8.0 h 06/17 Active prednisone 20 mg tablet (prednisone) 1, oral, Once A Day oral 1.0 1.0 d 06/08 Active bumetanide 1 mg tablet (bumetanide) 1, oral, Once A Day oral 1.0 1.0 d 08/14 Active midodrine 5 mg tablet (midodrine) 1, oral, Four Times A Day oral 1.0 6.0 h 2024 Active nystatin 100,000 unit/gram cream (nystatin) as directed, topical, Every Shift, Yusra-folds: Cleanse with soap and water, dry completely apply cream q shift till healed then dc topical 1.0 8.0 h 06/17 Active levofloxacin 750 mg tablet (levofloxacin) 1, oral, Once A Day oral 1.0 1.0 d 06/10 Active Basaglar KwikPen U-100 Insulin (insulin glargine) 100 unit/mL (3 mL) insulin pen (Basaglar KwikPen U-100 Insulin (insulin glargine)) 70units, subcutaneous, At Bedtime subcutaneo us 1.0 08/09 Active potassium chloride 10 mEq tablet extended release (potassium chloride) 2, oral, Once A Day oral 1.0 1.0 d 2024 Active prednisone 20 mg tablet (prednisone) 2, oral, Once A Day oral 1.0 1.0 d 06/18 Active MediHoney (honey) (honey) 80 % gel (MediHoney (honey) (honey)) as directed, topical, Every Shift, Rt inner ankle: Cleanse with ns and gauze, apply medi-honey to open area only, then skin prep to intact skin q shift and cover with bordered foam topical 1.0 8.0 h 06/17 Active MediHoney (honey) (honey) 80 % gel (MediHoney (honey) (honey)) as directed, topical, Once A Day, Rt inner ankle: Cleanse with ns and gauze, apply medi-honey to open area only, then skin prep to intact skin daily and cover with bordered foam topical 1.0 1.0 d 08/31 Active prednisone 20 mg tablet (prednisone) 1, oral, Once A Day oral 1.0 1.0 d 06/21 Active bumetanide 1 mg tablet (bumetanide) 1, oral, Once A Day, 1 daily x 1 week at 2 pm do not TI time oral 1.0 1.0 d 06/26 Active prednisone 10 mg tablet (prednisone) 1, oral, Once A Day oral 1.0 1.0 d 06/25 Active Ocusoft Eyelid Cleansing Pads ([employer]) - pad (Ocusoft Eyelid Cleansing Pads ([employer])) 2, miscellaneous , Once A Morning, use one pad per eye and clean each eye lid every am 1.0 2024 Active Systane (propylene glycol) (peg 400-propylene glycol) 0.4-0.3 % drops (Systane (propylene glycol) (peg 400-propylene glycol)) as directed, ophthalmic (eye), Every 3 Hours, apply every 3 hours to each eye while awake 1.0 3.0 h 06/23 Active TobraDex (tobramycin-dex amethasone) 0.3-0.1 % ointment (TobraDex (tobramycin-dex amethasone)) as directed, ophthalmic (eye), At Bedtime, apply 1/2 inch ribbon each eye at bedtime 1.0 2024 Active Lubricant Eye (PG-PEG 400)(PF) (peg 400-propylene glycol (pf)) 0.4-0.3 % dropperette (Lubricant Eye (PG-PEG 400)(PF) (peg 400-propylene glycol (pf))) 2-3 drops, both eyes, Every 3 Hours, while awake 1.0 3.0 h 2024 Active Systane (propylene glycol) (peg 400-propylene glycol) 0.4-0.3 % drops (Systane (propylene glycol) (peg 400-propylene glycol)) 2-3gtts, ophthalmic (eye), Every 3 Hours, apply every 3 hours to each eye while awake 1.0 3.0 h 06/27 Active insulin aspart U-100 100 unit/mL (3 mL) insulin pen (insulin aspart U-100) 10 units, subcutaneous, With Meals subcutaneo 1.0 08/07 Active levofloxacin 750 mg tablet (levofloxacin) 1, oral, Once A Day oral 1.0 1.0 d 07/31 Active ceftriaxone 1 gram recon soln (ceftriaxone) 1, injection, Once A Day 1.0 1.0 d 08/03 Active Admelog SoloStar U-100 Insulin (insulin lispro) 100 unit/mL insulin pen (Admelog SoloStar U-100 Insulin (insulin lispro)) 10 units, subcutaneous, With Meals subcutaneo us 1.0 08/09 Active Admelog SoloStar U-100 Insulin (insulin lispro) 100 unit/mL insulin pen (Admelog SoloStar U-100 Insulin (insulin lispro)) 15 units, subcutaneous, With Meals subcutaneo us 1.0 2024 Active insulin glargine-yfgn 100 unit/mL (3 mL) insulin pen (insulin glargine-yfgn) 80 units, subcutaneous, At Bedtime subcutaneo us 1.0 2024 Active insulin glargine-yfgn 100 unit/mL solution (insulin glargine-yfgn) 80, subcutaneous, At Bedtime subcutaneo us 1.0 08/09 Active hydrocodone-gabby taminophen 5-325 mg tablet (hydrocodone-ac etaminophen) 1 tab, oral, Twice A Day - PRN, clinical indication : pain oral 1.0 12.0 h 12/07 Active Macrobid (nitrofurantoin monohyd/m-cryst ) 100 mg capsule (Macrobid (nitrofurantoin monohyd/m-cryst )) 1, oral, Twice A Day oral 1.0 12.0 h 08/29 Active ertapenem 1 gram recon soln (ertapenem) 1 gram, injection, At Bedtime, clinical indication: UTI 1.0 09/04 Active Artificial Tears (PF) (dextran 70-hypromellose (pf)) 0.1-0.3 % dropperette (Artificial Tears (PF) (dextran 70-hypromellose (pf))) apply both eyes, ophthalmic (eye), Every 2 Hours - PRN, May apply to each eye as needed for irritation 1.0 2.0 h 2024 Active brimonidine 0.2 % drops (brimonidine) 1 gtt each eye, ophthalmic (eye), Twice A Day 1.0 12.0 h 2024 Active brinzolamide 1 % drops,suspensio n (brinzolamide) 1 gtt each eye, ophthalmic (eye), Twice A Day 1.0 12.0 h 2024 Active diclofenac sodium 1 % gel (diclofenac sodium) 2grams, topical, Three Times A Day - PRN, Apply 2grams to Lt shoulder TID PRN pain topical 1.0 8.0 h 2024 Active doxycycline hyclate 100 mg tablet (doxycycline hyclate) 1, oral, Twice A Day oral 1.0 12.0 h 01/10 Active hydrocodone-gabby taminophen 5-325 mg tablet (hydrocodone-ac etaminophen) 1 tab, oral, Three Times A Day - PRN, clinical indication : pain oral 1.0 8.0 h 01/09 Active insulin aspart U-100 100 unit/mL (3 mL) insulin pen (insulin aspart U-100) 40 units, subcutaneous, With Meals subcutaneo us 1.0 01/11 Active insulin glargine-yfgn 100 unit/mL (3 mL) insulin pen (insulin glargine-yfgn) 130 units, subcutaneous, At Bedtime subcutaneo us 1.0 01/11 Active latanoprost 0.005 % drops (latanoprost) 1 gtts Both eyes, ophthalmic (eye), At Bedtime 1.0 2024 Active metoprolol tartrate 100 mg tablet (metoprolol tartrate) 1, oral, Twice A Day oral 1.0 12.0 h 2024 Active Miralax (polyethylene glycol 3350) 17 gram/dose powder (Miralax (polyethylene glycol 3350)) 17 gram, oral, Once A Day, administer in 8 oz of juice or water oral 1.0 1.0 d 2024 Active pregabalin 50 mg capsule (pregabalin) 50mg, oral, Three Times A Day oral 1.0 8.0 h 01/09 Active Systane Nighttime (white petrolatum-mine ral oil) 94-3 % ointment (Systane Nighttime (white petrolatum-mine ral oil)) apply to both eyes, ophthalmic (eye), At Bedtime, Apply ointment to each eye prior to applying cpap mask 1.0 2024 Active Arexvy (PF) (rsvpref3 antigen-as01e (pf)) 120 mcg/0.5 mL suspension for reconstitution (Arexvy (PF) (rsvpref3 antigen-as01e (pf))) 0.5ml, intramuscular , Once - One Time intramuscu lar 1.0 12/19 Active Debrox (carbamide peroxide) 6.5 % drops (Debrox (carbamide peroxide)) 4 ggts, otic (ear), Once A Day, 4 gtt each ear 1.0 1.0 d 12/14 Active Eliquis (apixaban) 5 mg tablet (Eliquis (apixaban)) 1, oral, Twice A Day oral 1.0 12.0 h 12/27 Active Eliquis (apixaban) 5 mg tablet (Eliquis (apixaban)) 1, oral, Twice A Day oral 1.0 12.0 h 12/30 Active Eliquis (apixaban) 5 mg tablet (Eliquis (apixaban)) 1, oral, Twice A Day oral 1.0 12.0 h 01/03 Active latanoprost 0.005 % drops (latanoprost) 1 gtts left eye, ophthalmic (eye), At Bedtime 1.0 01/03 Active metoprolol tartrate 100 mg tablet (metoprolol tartrate) 1, oral, Twice A Day oral 1.0 12.0 h 12/15 Active Ozempic (semaglutide) 1 mg/dose (4 mg/3 mL) pen injector (Ozempic (semaglutide)) 1mg, subcutaneous, Once A Day on Wed subcutaneo us 1.0 1.0 d 12/18 Active Eliquis (apixaban) 5 mg tablet (Eliquis (apixaban)) 1, oral, Twice A Day oral 1.0 12.0 h 2024 Active hydrocodone-gabby taminophen 5-325 mg tablet (hydrocodone-ac etaminophen) 1 tab, oral, Three Times A Day - PRN, clinical indication : pain oral 1.0 8.0 h 01/09 Active pregabalin 50 mg capsule (pregabalin) 50mg, oral, Three Times A Day oral 1.0 8.0 h 2024 Active triamcinolone acetonide 0.1 % cream (triamcinolone acetonide) apply to both ears, topical, Twice A Day - PRN, Clinical indication: Itching topical 1.0 12.0 h 2024 Active albuterol sulfate 2.5 mg /3 mL (0.083 %) solution for nebulization (albuterol sulfate) 1inh, inhalation, Every 6 Hours - PRN, Clinical indication: dyspnea inhalation 1.0 6.0 h 2024 Active insulin aspart U-100 100 unit/mL (3 mL) insulin pen (insulin aspart U-100) 45 units, subcutaneous, With Meals subcutaneo us 1.0 2024 Active insulin glargine-yfgn 100 unit/mL (3 mL) insulin pen (insulin glargine-yfgn) 140 units, subcutaneous, At Bedtime subcutaneo us 1.0 2024 Active Ozempic (semaglutide) 0.25 mg or 0.5 mg (2 mg/3 mL) pen injector (Ozempic (semaglutide)) 0.5mg, subcutaneous, Once A Day on Wed subcutaneo us 1.0 1.0 d 02/06 Active Vital Signs Date Vital Result Comment 04/11/2024 10:12 PM Oxygen Saturation (17217-9) 93 % 04/11/2024 08:25 AM Temperature (8310-5) 97.3 [degF] Respiratory Rate (9279-1) 19 /min Heart Rate (8867-4) 95 /min Blood Pressure Systolic (8480-6) 127 mm[Hg] Blood Pressure Diastolic (8462-4) 60 mm[Hg] 04/11/2024 08:10 AM Oxygen Saturation (85629-3) 96 % 04/10/2024 07:19 PM Oxygen Saturation (67305-0) 94 % 04/10/2024 11:43 AM Temperature (8310-5) 97.3 [degF] Respiratory Rate (9279-1) 16 /min Heart Rate (8867-4) 104 /min Blood Pressure Systolic (8480-6) 127 mm[Hg] Blood Pressure Diastolic (8462-4) 77 mm[Hg] 04/10/2024 11:42 AM Oxygen Saturation (15830-8) 95 % 04/09/2024 09:46 PM Oxygen Saturation (81578-2) 98 % 04/09/2024 08:36 AM Temperature (8310-5) 97.7 [degF] Oxygen Saturation (89956-9) 96 % Respiratory Rate (9279-1) 19 /min Heart Rate (8867-4) 112 /min Blood Pressure Systolic (8480-6) 142 mm[Hg] Blood Pressure Diastolic (8462-4) 92 mm[Hg] 04/08/2024 11:24 PM Oxygen Saturation (96608-6) 98 % 04/08/2024 10:18 AM Temperature (8310-5) 97.9 [degF] Respiratory Rate (9279-1) 19 /min Heart Rate (8867-4) 98 /min Blood Pressure Systolic (8480-6) 122 mm[Hg] Blood Pressure Diastolic (8462-4) 69 mm[Hg] 04/08/2024 07:11 AM Oxygen Saturation (81112-1) 95 % 04/07/2024 09:05 PM Oxygen Saturation (73461-9) 97 % 04/07/2024 09:17 AM Temperature (8310-5) 97.4 [degF] Respiratory Rate (9279-1) 20 /min Heart Rate (8867-4) 96 /min Blood Pressure Systolic (8480-6) 105 mm[Hg] Blood Pressure Diastolic (8462-4) 65 mm[Hg] 04/07/2024 07:34 AM Oxygen Saturation (02449-9) 96 % 04/06/2024 10:48 PM Temperature (8310-5) 98.1 [degF] Respiratory Rate (9279-1) 20 /min Heart Rate (8867-4) 90 /min Blood Pressure Systolic (8480-6) 120 mm[Hg] Blood Pressure Diastolic (8462-4) 68 mm[Hg] 04/06/2024 03:48 PM Body Weight (12055-1) 280 [lb_av] Body Mass Index (83710-8) 37.97 kg/m2 04/06/2024 06:38 AM Temperature (8310-5) 98 [degF] Respiratory Rate (9279-1) 19 /min Heart Rate (8867-4) 98 /min Blood Pressure Systolic (8480-6) 112 mm[Hg] Blood Pressure Diastolic (8462-4) 62 mm[Hg] 04/05/2024 06:39 PM Temperature (8310-5) 97.8 [degF] Respiratory Rate (9279-1) 20 /min Heart Rate (8867-4) 111 /min Blood Pressure Systolic (8480-6) 82 mm[Hg] Blood Pressure Diastolic (8462-4) 54 mm[Hg] 04/05/2024 12:18 PM Body Weight (91688-8) 278.8 [lb_av ] Body Mass Index (07558-0) 37.81 kg/m2 04/05/2024 07:41 AM Temperature (8310-5) 97.9 [degF] Respiratory Rate (9279-1) 20 /min Heart Rate (8867-4) 113 /min Blood Pressure Systolic (8480-6) 131 mm[Hg] Blood Pressure Diastolic (8462-4) 67 mm[Hg] 04/04/2024 07:20 PM Temperature (8310-5) 99 [degF] Respiratory Rate (9279-1) 20 /min Heart Rate (8867-4) 110 /min Blood Pressure Systolic (8480-6) 94 mm[Hg] Blood Pressure Diastolic (8462-4) 59 mm[Hg] 04/04/2024 11:08 AM Body Weight (63747-7) 286.4 [lb_av ] Body Mass Index (24359-6) 38.84 kg/m2 04/03/2024 08:40 AM Body Weight (67601-9) 287.6 [lb_av ] Body Mass Index (52508-2) 39 kg/m2 04/02/2024 01:19 PM Body Weight (38199-9) 282 [lb_av] Body Mass Index (21534-5) 38.24 kg/m2 04/01/2024 03:19 PM Body Weight (87885-7) 279.6 [lb_av ] Body Mass Index (47039-4) 37.92 kg/m2 03/31/2024 10:17 AM Body Weight (37988-1) 281.2 [lb_av ] Body Mass Index (56009-1) 38.13 kg/m2 03/30/2024 02:26 PM Body Weight (02106-8) 277 [lb_av] Body Mass Index (14977-1) 37.56 kg/m2 03/28/2024 03:28 PM Body Weight (83003-6) 271.6 [lb_av ] Body Mass Index (90713-0) 36.83 kg/m2 03/26/2024 11:43 AM Body Weight (52100-2) 279.2 [lb_av ] Body Mass Index (61855-5) 37.86 kg/m2 03/25/2024 11:02 AM Body Weight (52781-5) 279.8 [lb_av ] Body Mass Index (44168-9) 37.94 kg/m2 03/24/2024 10:04 AM Body Weight (01552-6) 279.4 [lb_av ] Body Mass Index (27284-3) 37.89 kg/m2 03/23/2024 04:48 PM Body Weight (28920-7) 281 [lb_av] Body Mass Index (11804-9) 38.11 kg/m2 03/22/2024 11:31 AM Body Weight (54100-5) 279.6 [lb_av ] Body Mass Index (24187-8) 37.92 kg/m2 03/21/2024 10:10 AM Body Weight (44865-7) 280 [lb_av] Body Mass Index (47814-9) 37.97 kg/m2 03/19/2024 03:48 PM Body Weight (46241-0) 278.9 [lb_av ] Body Mass Index (22830-3) 37.82 kg/m2 03/18/2024 04:02 PM Body Weight (76275-8) 278.8 [lb_av ] Body Mass Index (27375-1) 37.81 kg/m2 03/17/2024 03:17 PM Body Weight (66573-1) 280 [lb_av] Body Mass Index (29320-0) 37.97 kg/m2 03/16/2024 09:55 AM Body Weight (97228-6) 286 [lb_av] Body Mass Index (98529-4) 38.78 kg/m2 03/15/2024 08:42 AM Body Weight (33743-8) 274.6 [lb_av ] Body Mass Index (42644-7) 37.24 kg/m2 03/14/2024 03:41 PM Body Weight (85523-5) 275.8 [lb_av ] Body Mass Index (01450-7) 37.4 kg/m2 03/13/2024 03:41 PM Body Weight (40436-4) 275 [lb_av] Body Mass Index (43932-5) 37.29 kg/m2 03/12/2024 10:43 AM Body Weight (05077-6) 278.6 [lb_av ] Body Mass Index (30082-3) 37.78 kg/m2 03/11/2024 02:45 PM Body Weight (03569-9) 279.8 [lb_av ] Body Mass Index (82248-7) 37.94 kg/m2 03/10/2024 04:13 PM Body Weight (94821-0) 283.4 [lb_av ] Body Mass Index (27172-2) 38.43 kg/m2 03/09/2024 12:26 PM Body Weight (56826-9) 280 [lb_av] Body Mass Index (37486-4) 37.97 kg/m2 03/08/2024 01:41 PM Body Weight (02631-8) 280.2 [lb_av ] Body Mass Index (85417-5) 38 kg/m2 03/07/2024 12:19 PM Body Weight (28436-9) 280 [lb_av] Body Mass Index (74758-6) 37.97 kg/m2 03/06/2024 03:24 PM Body Weight (50248-6) 277.2 [lb_av ] Body Mass Index (71494-6) 37.59 kg/m2 03/04/2024 09:36 AM Body Weight (73899-3) 278.5 [lb_av ] Body Mass Index (68495-6) 37.77 kg/m2 03/03/2024 04:18 PM Body Weight (04785-5) 278.4 [lb_av ] Body Mass Index (09948-3) 37.75 kg/m2 03/02/2024 04:32 PM Body Weight (97011-4) 278.2 [lb_av ] Body Mass Index (42665-9) 37.73 kg/m2 03/01/2024 10:51 AM Body Weight (38986-2) 278 [lb_av] Body Mass Index (45717-7) 37.7 kg/m2 02/29/2024 11:30 AM Body Weight (77286-3) 282 [lb_av] Body Mass Index (91143-2) 38.24 kg/m2 02/27/2024 08:39 AM Body Weight (81906-3) 272.8 [lb_av ] Body Mass Index (55406-5) 36.99 kg/m2 02/26/2024 09:13 AM Body Weight (53150-0) 275.6 [lb_av ] Body Mass Index (62046-1) 37.37 kg/m2 04/12/2024 08:30 AM Temperature (8310-5) 98 [degF] Oxygen Saturation (73861-6) 94 % Respiratory Rate (9279-1) 15 /min Heart Rate (8867-4) 117 /min Blood Pressure Systolic (8480-6) 120 mm[Hg] Blood Pressure Diastolic (8462-4) 64 mm[Hg] 04/12/2024 08:29 AM Oxygen Saturation (39572-1) 94 % 04/13/2024 06:05 AM Temperature (8310-5) 98.2 [degF] Oxygen Saturation (56016-2) 94 % Respiratory Rate (9279-1) 19 /min Heart Rate (8867-4) 110 /min Blood Pressure Systolic (8480-6) 118 mm[Hg] Blood Pressure Diastolic (8462-4) 66 mm[Hg] 04/12/2024 06:59 PM Oxygen Saturation (96397-9) 95 % 04/14/2024 07:48 AM Temperature (8310-5) 98.7 [degF] Respiratory Rate (9279-1) 16 /min Heart Rate (8867-4) 86 /min Blood Pressure Systolic (8480-6) 109 mm[Hg] Blood Pressure Diastolic (8462-4) 65 mm[Hg] 04/14/2024 07:47 AM Oxygen Saturation (21790-7) 95 % 04/13/2024 08:11 PM Oxygen Saturation (72487-8) 95 % 04/15/2024 08:34 AM Temperature (8310-5) 98 [degF] Respiratory Rate (9279-1) 18 /min Heart Rate (8867-4) 92 /min Blood Pressure Systolic (8480-6) 119 mm[Hg] Blood Pressure Diastolic (8462-4) 66 mm[Hg] 04/15/2024 07:48 AM Oxygen Saturation (60424-6) 96 % 04/14/2024 09:51 PM Oxygen Saturation (22024-7) 95 % 04/16/2024 09:09 AM Oxygen Saturation (77299-3) 96 % 04/15/2024 11:56 PM Oxygen Saturation (59017-3) 95 % 04/16/2024 10:00 PM Oxygen Saturation (13440-6) 95 % 04/16/2024 04:01 PM Temperature (8310-5) 97.5 [degF] Respiratory Rate (9279-1) 18 /min Heart Rate (8867-4) 99 /min Blood Pressure Systolic (8480-6) 120 mm[Hg] Blood Pressure Diastolic (8462-4) 66 mm[Hg] 04/18/2024 06:34 AM Temperature (8310-5) 98.2 [degF] Respiratory Rate (9279-1) 17 /min Heart Rate (8867-4) 98 /min Blood Pressure Systolic (8480-6) 122 mm[Hg] Blood Pressure Diastolic (8462-4) 62 mm[Hg] 04/18/2024 06:19 AM Oxygen Saturation (04886-8) 94 % 04/17/2024 08:04 PM Temperature (8310-5) 97.9 [degF] Oxygen Saturation (16001-9) 92 % Respiratory Rate (9279-1) 18 /min Heart Rate (8867-4) 118 /min Blood Pressure Systolic (8480-6) 96 mm[Hg] Blood Pressure Diastolic (8462-4) 59 mm[Hg] 04/17/2024 03:57 PM Temperature (8310-5) 97.1 [degF] Respiratory Rate (9279-1) 20 /min Heart Rate (8867-4) 128 /min Blood Pressure Systolic (8480-6) 120 mm[Hg] Blood Pressure Diastolic (8462-4) 65 mm[Hg] 04/17/2024 03:56 PM Oxygen Saturation (64945-3) 94 % 04/19/2024 07:37 AM Temperature (8310-5) 97.8 [degF] Oxygen Saturation (86674-6) 96 % Respiratory Rate (9279-1) 19 /min Heart Rate (8867-4) 100 /min Blood Pressure Systolic (8480-6) 112 mm[Hg] Blood Pressure Diastolic (8462-4) 54 mm[Hg] 04/18/2024 08:42 PM Oxygen Saturation (76217-5) 96 % 04/20/2024 06:36 AM Temperature (8310-5) 98 [degF] Respiratory Rate (9279-1) 17 /min Heart Rate (8867-4) 98 /min Blood Pressure Systolic (8480-6) 120 mm[Hg] Blood Pressure Diastolic (8462-4) 58 mm[Hg] 04/20/2024 06:35 AM Oxygen Saturation (01188-8) 96 % 04/20/2024 04:58 AM Oxygen Saturation (88537-8) 94 % 04/20/2024 08:09 PM Oxygen Saturation (63974-7) 96 % 04/21/2024 09:38 PM Oxygen Saturation (40568-8) 96 % 04/21/2024 04:27 PM Temperature (8310-5) 98.2 [degF] Oxygen Saturation (13527-9) 94 % Respiratory Rate (9279-1) 18 /min Heart Rate (8867-4) 96 /min Blood Pressure Systolic (8480-6) 137 mm[Hg] Blood Pressure Diastolic (8462-4) 71 mm[Hg] 04/21/2024 03:11 PM Oxygen Saturation (12309-2) 94 % 04/22/2024 07:47 AM Temperature (8310-5) 99.6 [degF] Oxygen Saturation (17074-9) 97 % Respiratory Rate (9279-1) 20 /min Heart Rate (8867-4) 115 /min Blood Pressure Systolic (8480-6) 132 mm[Hg] Blood Pressure Diastolic (8462-4) 79 mm[Hg] 04/22/2024 08:54 PM Oxygen Saturation (91972-9) 96 % 04/23/2024 09:02 PM Oxygen Saturation (20559-7) 95 % 04/23/2024 07:28 AM Temperature (8310-5) 98.3 [degF] Oxygen Saturation (58659-0) 97 % Respiratory Rate (9279-1) 22 /min Heart Rate (8867-4) 123 /min Blood Pressure Systolic (8480-6) 125 mm[Hg] Blood Pressure Diastolic (8462-4) 72 mm[Hg] 04/24/2024 09:52 AM Temperature (8310-5) 98.2 [degF] Oxygen Saturation (88419-4) 94 % Respiratory Rate (9279-1) 20 /min Heart Rate (8867-4) 98 /min Blood Pressure Systolic (8480-6) 127 mm[Hg] Blood Pressure Diastolic (8462-4) 74 mm[Hg] 04/24/2024 09:50 AM Oxygen Saturation (75442-7) 94 % 04/25/2024 09:36 AM Temperature (8310-5) 98.2 [degF] Oxygen Saturation (43004-6) 95 % Respiratory Rate (9279-1) 20 /min Heart Rate (8867-4) 105 /min Blood Pressure Systolic (8480-6) 108 mm[Hg] Blood Pressure Diastolic (8462-4) 61 mm[Hg] 04/24/2024 06:36 PM Oxygen Saturation (81849-1) 96 % 04/26/2024 10:50 AM Temperature (8310-5) 97.9 [degF] Oxygen Saturation (07191-8) 92 % Respiratory Rate (9279-1) 20 /min Heart Rate (8867-4) 84 /min Blood Pressure Systolic (8480-6) 107 mm[Hg] Blood Pressure Diastolic (8462-4) 61 mm[Hg] 04/25/2024 07:14 PM Oxygen Saturation (52961-4) 95 % 04/26/2024 10:43 PM Oxygen Saturation (66063-7) 95 % 04/27/2024 10:35 PM Oxygen Saturation (13893-4) 96 % 04/27/2024 06:53 AM Temperature (8310-5) 98 [degF] Oxygen Saturation (91496-1) 96 % Respiratory Rate (9279-1) 18 /min Heart Rate (8867-4) 90 /min Blood Pressure Systolic (8480-6) 117 mm[Hg] Blood Pressure Diastolic (8462-4) 67 mm[Hg] 04/28/2024 07:03 AM Temperature (8310-5) 97.6 [degF] Respiratory Rate (9279-1) 19 /min Heart Rate (8867-4) 85 /min Blood Pressure Systolic (8480-6) 122 mm[Hg] Blood Pressure Diastolic (8462-4) 60 mm[Hg] 04/28/2024 07:02 AM Oxygen Saturation (24629-8) 95 % 04/29/2024 06:53 AM Temperature (8310-5) 98 [degF] Respiratory Rate (9279-1) 20 /min Heart Rate (8867-4) 92 /min Blood Pressure Systolic (8480-6) 130 mm[Hg] Blood Pressure Diastolic (8462-4) 66 mm[Hg] 04/29/2024 06:52 AM Oxygen Saturation (86819-4) 98 % 04/28/2024 09:31 PM Oxygen Saturation (42000-5) 97 % 04/29/2024 10:23 PM Oxygen Saturation (34528-2) 97 % 04/30/2024 06:52 AM Temperature (8310-5) 98.5 [degF] Oxygen Saturation (58563-2) 95 % Respiratory Rate (9279-1) 18 /min Heart Rate (8867-4) 99 /min Blood Pressure Systolic (8480-6) 126 mm[Hg] Blood Pressure Diastolic (8462-4) 63 mm[Hg] 05/01/2024 09:20 AM Temperature (8310-5) 97.1 [degF] Oxygen Saturation (72231-5) 93 % Respiratory Rate (9279-1) 18 /min Heart Rate (8867-4) 97 /min Blood Pressure Systolic (8480-6) 97 mm[Hg] Blood Pressure Diastolic (8462-4) 62 mm[Hg] 04/30/2024 11:47 PM Oxygen Saturation (38749-7) 98 % 05/02/2024 06:28 PM Oxygen Saturation (60892-3) 97 % 05/02/2024 06:58 AM Temperature (8310-5) 98 [degF] Oxygen Saturation (58083-1) 96 % Respiratory Rate (9279-1) 19 /min Heart Rate (8867-4) 87 /min Blood Pressure Systolic (8480-6) 112 mm[Hg] Blood Pressure Diastolic (8462-4) 68 mm[Hg] 05/01/2024 07:42 PM Oxygen Saturation (61708-0) 94 % 05/03/2024 07:14 AM Body Weight (46804-4) 275.4 [lb_av ] Body Mass Index (26398-9) 37.35 kg/m2 05/03/2024 07:13 AM Temperature (8310-5) 98.3 [degF] Oxygen Saturation (25710-6) 96 % Respiratory Rate (9279-1) 17 /min Heart Rate (8867-4) 105 /min Blood Pressure Systolic (8480-6) 110 mm[Hg] Blood Pressure Diastolic (8462-4) 68 mm[Hg] 05/04/2024 01:47 PM Body Weight (77229-2) 275.3 [lb_av ] Body Mass Index (07391-0) 37.33 kg/m2 05/04/2024 06:44 AM Oxygen Saturation (72177-9) 96 % 05/03/2024 08:09 PM Oxygen Saturation (44261-9) 94 % 05/05/2024 01:06 AM Oxygen Saturation (76035-0) 98 % 05/05/2024 08:18 AM Oxygen Saturation (64422-3) 96 % 05/05/2024 02:27 PM Body Weight (54326-6) 274.8 [lb_av ] Body Mass Index (62211-8) 37.27 kg/m2 05/06/2024 01:58 PM Body Weight (39317-3) 284.8 [lb_av ] Body Mass Index (98155-4) 38.62 kg/m2 05/06/2024 07:27 AM Oxygen Saturation (28412-2) 98 % 05/05/2024 10:07 PM Oxygen Saturation (07037-3) 96 % 05/06/2024 09:02 PM Oxygen Saturation (42786-7) 96 % 05/07/2024 08:01 PM Oxygen Saturation (32469-4) 95 % 05/07/2024 08:37 AM Oxygen Saturation (17632-0) 97 % 05/08/2024 08:47 AM Oxygen Saturation (46818-4) 94 % 05/09/2024 06:24 PM Oxygen Saturation (24015-9) 99 % 05/08/2024 07:26 PM Oxygen Saturation (55630-7) 96 % 05/09/2024 07:52 AM Oxygen Saturation (26861-6) 97 % 05/09/2024 08:12 PM Oxygen Saturation (61513-5) 99 % 05/10/2024 09:49 AM Temperature (8310-5) 98.1 [degF] Oxygen Saturation (51287-0) 97 % Respiratory Rate (9279-1) 22 /min Heart Rate (8867-4) 95 /min Blood Pressure Systolic (8480-6) 122 mm[Hg] Blood Pressure Diastolic (8462-4) 67 mm[Hg] 05/11/2024 06:37 AM Oxygen Saturation (70379-0) 95 % 05/10/2024 08:00 PM Oxygen Saturation (55735-1) 96 % 05/12/2024 07:07 AM Oxygen Saturation (96005-4) 96 % 05/12/2024 03:14 PM Body Weight (93667-2) 290.6 [lb_av ] Body Mass Index (53865-2) 39.41 kg/m2 05/11/2024 09:28 PM Oxygen Saturation (96414-5) 96 % 05/13/2024 01:37 PM Body Weight (01799-3) 289.4 [lb_av ] Body Mass Index (04959-6) 39.25 kg/m2 05/12/2024 10:09 PM Oxygen Saturation (06060-8) 95 % 05/13/2024 06:35 AM Oxygen Saturation (30980-1) 97 % 05/12/2024 10:08 PM Oxygen Saturation (21290-5) 96 % 05/13/2024 10:08 PM Oxygen Saturation (44659-4) 95 % 05/14/2024 06:26 AM Oxygen Saturation (88807-9) 97 % 05/15/2024 09:23 AM Oxygen Saturation (22507-8) 97 % 05/15/2024 05:24 AM Oxygen Saturation (32353-2) 96 % 05/16/2024 07:06 AM Oxygen Saturation (55832-2) 95 % 05/15/2024 11:04 PM Oxygen Saturation (97528-5) 97 % 05/17/2024 07:20 AM Temperature (8310-5) 98.1 [degF] Respiratory Rate (9279-1) 18 /min Heart Rate (8867-4) 94 /min Blood Pressure Systolic (8480-6) 122 mm[Hg] Blood Pressure Diastolic (8462-4) 62 mm[Hg] 05/17/2024 07:19 AM Oxygen Saturation (13340-4) 97 % 05/16/2024 08:47 PM Oxygen Saturation (02933-7) 93 % 05/17/2024 09:06 PM Oxygen Saturation (20463-5) 95 % 05/18/2024 06:51 AM Oxygen Saturation (06475-1) 96 % 05/19/2024 05:37 PM Oxygen Saturation (06470-0) 96 % 05/19/2024 07:13 AM Oxygen Saturation (64878-3) 94 % 05/18/2024 06:19 PM Oxygen Saturation (06843-0) 97 % 05/20/2024 08:10 PM Oxygen Saturation (33028-7) 98 % 05/20/2024 07:51 AM Oxygen Saturation (17942-7) 96 % 05/21/2024 08:12 AM Oxygen Saturation (40717-0) 94 % 05/21/2024 08:01 PM Oxygen Saturation (35817-5) 98 % 05/22/2024 08:11 PM Oxygen Saturation (14110-7) 96 % 05/22/2024 09:25 AM Oxygen Saturation (65625-8) 96 % 05/23/2024 08:48 AM Oxygen Saturation (61624-4) 96 % 05/24/2024 12:27 PM Temperature (8310-5) 98.2 [degF] Respiratory Rate (9279-1) 18 /min Heart Rate (8867-4) 90 /min Blood Pressure Systolic (8480-6) 128 mm[Hg] Blood Pressure Diastolic (8462-4) 66 mm[Hg] 05/24/2024 12:26 PM Oxygen Saturation (73491-0) 98 % 05/23/2024 10:45 PM Oxygen Saturation (96932-2) 99 % 05/25/2024 07:26 AM Oxygen Saturation (78138-5) 94 % 05/24/2024 08:08 PM Oxygen Saturation (82593-6) 96 % 05/25/2024 08:53 PM Oxygen Saturation (99594-7) 95 % 05/26/2024 06:57 AM Oxygen Saturation (50998-9) 96 % 02/24/2024 10:04 PM Body Height (8302-2) 72 [in_us] 05/26/2024 09:04 PM Oxygen Saturation (96483-0) 95 % 05/27/2024 07:00 AM Oxygen Saturation (86315-1) 97 % 05/27/2024 09:23 PM Oxygen Saturation (35711-6) 95 % 05/28/2024 10:04 PM Oxygen Saturation (94225-7) 95 % 05/28/2024 06:49 AM Oxygen Saturation (09158-5) 97 % 05/29/2024 09:30 AM Oxygen Saturation (98074-6) 93 % 05/30/2024 06:50 AM Oxygen Saturation (85093-5) 94 % 05/29/2024 08:55 PM Temperature (8310-5) 98.1 [degF] Oxygen Saturation (90432-9) 93 % Respiratory Rate (9279-1) 22 /min Heart Rate (8867-4) 121 /min Blood Pressure Systolic (8480-6) 123 mm[Hg] Blood Pressure Diastolic (8462-4) 79 mm[Hg] 05/30/2024 08:51 PM Oxygen Saturation (59503-0) 95 % 05/31/2024 07:48 AM Temperature (8310-5) 97.3 [degF] Oxygen Saturation (75784-1) 92 % Respiratory Rate (9279-1) 18 /min Heart Rate (8867-4) 120 /min Blood Pressure Systolic (8480-6) 120 mm[Hg] Blood Pressure Diastolic (8462-4) 77 mm[Hg] 06/01/2024 07:09 AM Oxygen Saturation (88691-0) 97 % 05/31/2024 10:45 PM Oxygen Saturation (77317-1) 98 % 06/02/2024 09:04 AM Oxygen Saturation (64657-8) 94 % 06/03/2024 08:53 AM Oxygen Saturation (25477-5) 98 % 06/02/2024 08:58 PM Oxygen Saturation (26881-2) 95 % 06/03/2024 10:21 AM Body Weight (05332-3) 288.8 [lb_av ] Body Mass Index (94979-6) 39.16 kg/m2 06/03/2024 11:11 PM Oxygen Saturation (04069-3) 95 % 06/04/2024 09:57 AM Oxygen Saturation (80649-5) 92 % 06/04/2024 10:07 PM Oxygen Saturation (58279-9) 95 % 06/05/2024 03:09 PM Body Weight (86361-4) 291.4 [lb_av ] Body Mass Index (89974-5) 39.52 kg/m2 06/05/2024 10:20 PM Oxygen Saturation (59702-6) 96 % 06/05/2024 08:54 AM Oxygen Saturation (16906-1) 92 % 06/06/2024 02:44 PM Body Weight (18860-5) 287.8 [lb_av ] Body Mass Index (62706-4) 39.03 kg/m2 06/06/2024 10:45 AM Oxygen Saturation (66473-5) 94 % 06/07/2024 02:30 PM Temperature (8310-5) 97.6 [degF] Oxygen Saturation (45373-6) 91 % Respiratory Rate (9279-1) 21 /min Heart Rate (8867-4) 86 /min Blood Pressure Systolic (8480-6) 113 mm[Hg] Blood Pressure Diastolic (8462-4) 50 mm[Hg] 06/07/2024 02:47 PM Body Weight (82776-3) 287.2 [lb_av ] Body Mass Index (16159-7) 38.95 kg/m2 06/07/2024 02:29 PM Oxygen Saturation (31175-9) 91 % 06/06/2024 08:13 PM Oxygen Saturation (15416-7) 93 % 06/08/2024 07:14 AM Oxygen Saturation (26292-2) 95 % 06/07/2024 09:07 PM Oxygen Saturation (52502-4) 96 % 06/09/2024 06:51 AM Oxygen Saturation (47800-0) 97 % 06/08/2024 08:32 PM Oxygen Saturation (63937-1) 95 % 06/10/2024 06:55 AM Oxygen Saturation (09864-8) 97 % 06/09/2024 08:20 PM Oxygen Saturation (01284-7) 96 % 06/10/2024 07:53 PM Oxygen Saturation (95561-3) 95 % 06/11/2024 06:41 PM Oxygen Saturation (07820-9) 96 % 06/11/2024 08:07 AM Oxygen Saturation (69969-1) 90 % 06/12/2024 03:29 PM Body Weight (34421-5) 282.4 [lb_av ] Body Mass Index (93327-8) 38.3 kg/m2 06/12/2024 07:39 AM Oxygen Saturation (43991-9) 93 % 06/12/2024 09:03 PM Oxygen Saturation (05464-1) 98 % 06/13/2024 07:28 PM Oxygen Saturation (15065-0) 93 % 06/13/2024 03:10 PM Body Weight (52388-3) 282.3 [lb_av ] Body Mass Index (25554-5) 38.28 kg/m2 06/13/2024 07:19 AM Oxygen Saturation (61012-6) 97 % 06/14/2024 07:44 PM Oxygen Saturation (57513-4) 94 % 06/14/2024 01:50 PM Body Weight (96638-4) 277.6 [lb_av ] Body Mass Index (26172-4) 37.65 kg/m2 06/14/2024 08:58 AM Temperature (8310-5) 99.9 [degF] Oxygen Saturation (11046-6) 92 % Respiratory Rate (9279-1) 18 /min Heart Rate (8867-4) 120 /min Blood Pressure Systolic (8480-6) 160 mm[Hg] Blood Pressure Diastolic (8462-4) 65 mm[Hg] 06/15/2024 12:25 PM Body Weight (33032-7) 280 [lb_av] Body Mass Index (60493-3) 37.97 kg/m2 06/15/2024 07:10 AM Oxygen Saturation (85937-8) 96 % 06/16/2024 01:51 PM Body Weight (72571-9) 276.2 [lb_av ] Body Mass Index (34756-1) 37.46 kg/m2 06/16/2024 09:17 AM Oxygen Saturation (54852-2) 94 % 06/16/2024 11:32 PM Oxygen Saturation (98985-6) 95 % 06/17/2024 09:52 PM Oxygen Saturation (57312-7) 95 % 06/17/2024 02:56 PM Body Weight (50954-1) 274.8 [lb_av ] Body Mass Index (33355-5) 37.27 kg/m2 06/17/2024 09:37 AM Oxygen Saturation (92706-4) 92 % 06/17/2024 09:36 AM Oxygen Saturation (11959-8) 92 % 06/18/2024 01:17 PM Body Weight (40719-8) 272.4 [lb_av ] Body Mass Index (85112-0) 36.94 kg/m2 06/18/2024 07:20 AM Oxygen Saturation (79016-1) 96 % 06/18/2024 07:19 AM Oxygen Saturation (91819-9) 96 % 06/19/2024 02:28 AM Oxygen Saturation (18405-9) 95 % 06/19/2024 09:27 PM Oxygen Saturation (10596-3) 92 % 06/19/2024 02:25 PM Oxygen Saturation (90804-7) 94 % Body Weight (96698-8) 274.2 [lb_av] Body Mass Index (30365-8) 37.18 kg/m2 06/20/2024 09:57 AM Oxygen Saturation (54618-7) 92 % 06/21/2024 01:31 PM Body Weight (88452-6) 270.4 [lb_av ] Body Mass Index (37775-9) 36.67 kg/m2 06/21/2024 05:56 AM Temperature (8310-5) 97.1 [degF] Respiratory Rate (9279-1) 18 /min Heart Rate (8867-4) 94 /min Blood Pressure Systolic (8480-6) 116 mm[Hg] Blood Pressure Diastolic (8462-4) 80 mm[Hg] 06/21/2024 05:55 AM Oxygen Saturation (22200-0) 96 % 06/20/2024 06:43 PM Oxygen Saturation (98262-6) 96 % 06/20/2024 04:12 PM Body Weight (16635-0) 277 [lb_av] Body Mass Index (95335-1) 37.56 kg/m2 06/22/2024 12:33 PM Body Weight (67549-9) 273 [lb_av] Body Mass Index (92623-3) 37.02 kg/m2 06/22/2024 07:22 AM Oxygen Saturation (34054-8) 94 % 06/21/2024 08:28 PM Oxygen Saturation (04886-0) 92 % 06/23/2024 10:05 AM Body Weight (23661-2) 267.8 [lb_av ] Body Mass Index (78473-8) 36.32 kg/m2 06/23/2024 06:29 AM Oxygen Saturation (84198-8) 96 % 06/22/2024 09:03 PM Oxygen Saturation (93524-8) 95 % 06/22/2024 08:51 PM Oxygen Saturation (10295-8) 95 % 06/23/2024 11:20 PM Oxygen Saturation (98289-4) 95 % 06/24/2024 04:34 PM Body Weight (29657-2) 267.6 [lb_av ] Body Mass Index (96476-7) 36.29 kg/m2 06/24/2024 06:59 AM Oxygen Saturation (09698-7) 96 % 06/25/2024 06:43 AM Oxygen Saturation (68873-2) 94 % 06/25/2024 12:19 AM Oxygen Saturation (20186-9) 95 % 06/25/2024 03:18 PM Body Weight (06244-8) 268 [lb_av] Body Mass Index (67914-1) 36.34 kg/m2 06/26/2024 03:33 PM Body Weight (82413-4) 268 [lb_av] Body Mass Index (14307-6) 36.34 kg/m2 06/26/2024 01:24 PM Oxygen Saturation (94475-3) 93 % 06/27/2024 02:06 PM Body Weight (10041-3) 266.8 [lb_av ] Body Mass Index (47620-6) 36.18 kg/m2 06/27/2024 07:00 AM Oxygen Saturation (98479-3) 93 % 06/27/2024 12:38 AM Oxygen Saturation (19223-6) 90 % 06/27/2024 07:18 PM Oxygen Saturation (56631-1) 93 % 06/28/2024 09:04 PM Oxygen Saturation (77260-0) 94 % 06/28/2024 02:50 PM Body Weight (76392-7) 271 [lb_av] Body Mass Index (53080-2) 36.75 kg/m2 06/28/2024 06:56 AM Temperature (8310-5) 97.1 [degF] Respiratory Rate (9279-1) 18 /min Heart Rate (8867-4) 79 /min Blood Pressure Systolic (8480-6) 117 mm[Hg] Blood Pressure Diastolic (8462-4) 52 mm[Hg] 06/28/2024 06:54 AM Oxygen Saturation (80046-1) 94 % 06/29/2024 06:51 AM Oxygen Saturation (63103-6) 95 % 06/29/2024 08:05 PM Oxygen Saturation (61839-2) 98 % 06/30/2024 11:08 AM Body Weight (35576-5) 271.2 [lb_av ] Body Mass Index (89581-4) 36.78 kg/m2 06/30/2024 07:22 AM Oxygen Saturation (72129-6) 97 % 07/01/2024 09:54 AM Oxygen Saturation (82155-3) 93 % 07/01/2024 09:36 AM Oxygen Saturation (89503-9) 93 % 07/01/2024 12:13 AM Oxygen Saturation (19621-0) 95 % 07/02/2024 09:15 AM Oxygen Saturation (07039-7) 95 % 07/01/2024 09:49 PM Oxygen Saturation (84011-6) 95 % 07/01/2024 10:11 AM Body Weight (26581-2) 271.2 [lb_av ] Body Mass Index (37829-8) 36.78 kg/m2 07/02/2024 09:35 PM Oxygen Saturation (53459-2) 95 % 07/02/2024 04:13 PM Body Weight (76471-4) 272.8 [lb_av ] Body Mass Index (90224-0) 36.99 kg/m2 07/03/2024 06:52 PM Oxygen Saturation (06261-4) 97 % 07/03/2024 12:48 PM Oxygen Saturation (97424-7) 94 % 07/04/2024 09:25 AM Oxygen Saturation (28219-4) 95 % 07/05/2024 11:09 AM Temperature (8310-5) 98.2 [degF] Oxygen Saturation (80677-3) 94 % Respiratory Rate (9279-1) 20 /min Heart Rate (8867-4) 109 /min Blood Pressure Systolic (8480-6) 124 mm[Hg] Blood Pressure Diastolic (8462-4) 70 mm[Hg] 07/05/2024 11:08 AM Oxygen Saturation (31524-2) 94 % 07/04/2024 08:02 PM Oxygen Saturation (20834-6) 97 % 07/06/2024 03:22 PM Body Weight (40910-8) 275.6 [lb_av ] Body Mass Index (85938-7) 37.37 kg/m2 07/06/2024 07:11 AM Oxygen Saturation (78883-4) 96 % 07/06/2024 12:42 AM Oxygen Saturation (90981-9) 97 % 07/05/2024 04:23 PM Body Weight (81777-3) 272 [lb_av] Body Mass Index (94465-5) 36.89 kg/m2 07/07/2024 01:57 PM Body Weight (59320-5) 276 [lb_av] Body Mass Index (96796-5) 37.43 kg/m2 07/07/2024 07:20 AM Oxygen Saturation (96001-5) 97 % 07/06/2024 11:55 PM Oxygen Saturation (22630-3) 95 % 07/07/2024 09:15 PM Oxygen Saturation (61136-2) 95 % 07/08/2024 09:40 PM Oxygen Saturation (90715-0) 98 % 07/08/2024 04:53 PM Body Weight (97601-1) 275.2 [lb_av ] Body Mass Index (49420-2) 37.32 kg/m2 07/08/2024 07:01 AM Oxygen Saturation (08900-4) 96 % 07/09/2024 07:11 AM Oxygen Saturation (67413-9) 95 % 07/09/2024 10:11 PM Oxygen Saturation (17200-9) 95 % 07/10/2024 08:25 PM Oxygen Saturation (82694-1) 95 % 07/10/2024 02:53 PM Body Weight (57691-5) 267.2 [lb_av ] Body Mass Index (76589-0) 36.23 kg/m2 07/10/2024 06:53 AM Oxygen Saturation (67333-0) 97 % 07/10/2024 06:51 AM Oxygen Saturation (36009-3) 97 % 07/11/2024 10:54 AM Body Weight (89476-7) 267.3 [lb_av ] Body Mass Index (95526-5) 36.25 kg/m2 07/11/2024 07:16 AM Oxygen Saturation (72727-5) 96 % 07/11/2024 06:23 PM Oxygen Saturation (41717-0) 93 % 07/12/2024 08:23 AM Temperature (8310-5) 97 [degF] Respiratory Rate (9279-1) 18 /min Heart Rate (8867-4) 100 /min Blood Pressure Systolic (8480-6) 120 mm[Hg] Blood Pressure Diastolic (8462-4) 70 mm[Hg] 07/12/2024 08:22 AM Oxygen Saturation (26168-4) 97 % 07/12/2024 02:03 PM Body Weight (59395-9) 276 [lb_av] Body Mass Index (18490-9) 37.43 kg/m2 07/12/2024 10:12 PM Oxygen Saturation (45606-7) 96 % 07/13/2024 07:02 AM Oxygen Saturation (22652-5) 97 % 07/13/2024 04:17 PM Body Weight (55599-1) 276.5 [lb_av ] Body Mass Index (22528-4) 37.5 kg/m2 07/13/2024 08:03 PM Oxygen Saturation (17741-2) 96 % 07/14/2024 08:28 AM Oxygen Saturation (15592-2) 98 % 07/14/2024 11:43 AM Body Weight (27648-0) 275.4 [lb_av ] Body Mass Index (58532-6) 37.35 kg/m2 07/15/2024 08:56 AM Oxygen Saturation (45811-2) 98 % 07/15/2024 01:45 AM Oxygen Saturation (53193-6) 95 % 07/15/2024 09:42 AM Body Weight (84733-8) 276.4 [lb_av ] Body Mass Index (17593-3) 37.48 kg/m2 07/15/2024 08:43 PM Oxygen Saturation (09544-5) 95 % 07/16/2024 08:45 AM Oxygen Saturation (14796-1) 98 % 07/16/2024 02:39 PM Body Weight (58566-7) 276.1 [lb_av ] Body Mass Index (42225-5) 37.44 kg/m2 07/16/2024 07:52 PM Oxygen Saturation (57940-5) 95 % 07/17/2024 02:33 PM Body Weight (72614-3) 276.2 [lb_av ] Body Mass Index (93163-7) 37.46 kg/m2 07/17/2024 10:38 AM Oxygen Saturation (24335-1) 94 % 07/17/2024 08:26 PM Oxygen Saturation (06267-9) 95 % 07/18/2024 08:47 AM Oxygen Saturation (04990-1) 98 % 07/18/2024 03:52 PM Body Weight (65540-2) 276.6 [lb_av ] Body Mass Index (55522-8) 37.51 kg/m2 07/19/2024 08:57 AM Temperature (8310-5) 98.1 [degF] Oxygen Saturation (01378-9) 95 % Respiratory Rate (9279-1) 18 /min Heart Rate (8867-4) 117 /min Blood Pressure Systolic (8480-6) 127 mm[Hg] Blood Pressure Diastolic (8462-4) 79 mm[Hg] 07/19/2024 08:56 AM Oxygen Saturation (57851-1) 95 % 07/18/2024 09:36 PM Oxygen Saturation (09180-1) 96 % 07/19/2024 04:11 PM Body Weight (37185-9) 277 [lb_av] Body Mass Index (91409-5) 37.56 kg/m2 07/19/2024 07:33 PM Oxygen Saturation (41590-0) 92 % 07/20/2024 06:57 AM Oxygen Saturation (71256-5) 94 % 07/20/2024 04:26 PM Body Weight (24106-0) 278 [lb_av] Body Mass Index (17372-9) 37.7 kg/m2 07/20/2024 08:54 PM Oxygen Saturation (62850-2) 95 % 07/20/2024 09:07 PM Oxygen Saturation (36745-7) 95 % 07/21/2024 07:01 AM Oxygen Saturation (23578-7) 96 % 07/21/2024 10:19 AM Body Weight (90245-8) 278.5 [lb_av ] Body Mass Index (72321-8) 37.77 kg/m2 07/21/2024 08:45 PM Oxygen Saturation (72875-8) 95 % 07/22/2024 07:28 AM Oxygen Saturation (99909-1) 96 % 07/22/2024 08:03 PM Oxygen Saturation (92053-4) 96 % 07/23/2024 08:17 AM Oxygen Saturation (59866-4) 93 % 07/23/2024 02:44 PM Body Weight (47257-6) 278 [lb_av] Body Mass Index (67819-1) 37.7 kg/m2 07/23/2024 08:20 PM Oxygen Saturation (92764-8) 95 % 2024 07:20 AM Oxygen Saturation (42717-4) 95 % 2024 07:18 AM Oxygen Saturation (46122-0) 95 % 2024 07:12 PM Oxygen Saturation (95613-0) 91 % 07/25/2024 07:32 AM Oxygen Saturation (23782-6) 92 % 07/25/2024 07:49 PM Oxygen Saturation (87807-8) 93 % 07/26/2024 07:45 AM Temperature (8310-5) 98.4 [degF] Oxygen Saturation (05286-3) 92 % Respiratory Rate (9279-1) 19 /min Heart Rate (8867-4) 117 /min Blood Pressure Systolic (8480-6) 146 mm[Hg] Blood Pressure Diastolic (8462-4) 74 mm[Hg] 07/27/2024 12:29 AM Oxygen Saturation (74660-4) 94 % 07/27/2024 07:51 AM Oxygen Saturation (25318-7) 95 % 07/27/2024 08:21 PM Oxygen Saturation (17909-5) 93 % 07/28/2024 07:20 AM Oxygen Saturation (88116-8) 97 % 07/28/2024 09:37 PM Oxygen Saturation (69412-1) 96 % 07/29/2024 02:06 PM Oxygen Saturation (45367-8) 91 % 07/29/2024 08:41 PM Oxygen Saturation (33028-0) 98 % 07/30/2024 10:32 AM Oxygen Saturation (59826-6) 92 % 07/30/2024 07:47 PM Oxygen Saturation (64881-2) 95 % 07/31/2024 09:09 AM Oxygen Saturation (27777-5) 96 % 07/31/2024 03:39 PM Body Weight (00954-1) 270.8 [lb_av ] Body Mass Index (30418-1) 36.72 kg/m2 07/31/2024 07:05 PM Oxygen Saturation (48206-8) 95 % 08/01/2024 07:02 AM Oxygen Saturation (18358-7) 96 % 08/01/2024 11:33 AM Body Weight (98194-4) 273.2 [lb_av ] Body Mass Index (22596-1) 37.05 kg/m2 08/02/2024 12:31 AM Oxygen Saturation (82784-9) 96 % 08/02/2024 09:52 AM Body Weight (86231-0) 273 [lb_av] Body Mass Index (83194-8) 37.02 kg/m2 08/02/2024 10:06 AM Temperature (8310-5) 98.4 [degF] Oxygen Saturation (79030-9) 92 % Respiratory Rate (9279-1) 19 /min Heart Rate (8867-4) 110 /min Blood Pressure Systolic (8480-6) 111 mm[Hg] Blood Pressure Diastolic (8462-4) 63 mm[Hg] 08/02/2024 11:32 PM Oxygen Saturation (17212-4) 90 % 08/03/2024 07:40 AM Oxygen Saturation (02271-8) 93 % 08/04/2024 12:43 AM Oxygen Saturation (79836-4) 97 % 08/04/2024 09:50 AM Body Weight (48653-2) 270 [lb_av] Body Mass Index (93096-6) 36.61 kg/m2 08/04/2024 07:25 AM Oxygen Saturation (15541-1) 95 % 08/04/2024 11:54 PM Oxygen Saturation (48230-8) 95 % 08/05/2024 12:04 AM Oxygen Saturation (15888-3) 95 % 08/05/2024 06:47 AM Oxygen Saturation (66830-7) 96 % 08/05/2024 03:09 PM Body Weight (41101-2) 271 [lb_av] Body Mass Index (10453-4) 36.75 kg/m2 08/05/2024 09:52 PM Oxygen Saturation (79197-4) 95 % 08/06/2024 07:38 AM Oxygen Saturation (96774-4) 96 % 08/06/2024 08:33 PM Oxygen Saturation (27548-1) 95 % 08/07/2024 10:43 PM Oxygen Saturation (85158-9) 92 % 08/07/2024 06:33 PM Oxygen Saturation (86908-2) 95 % 08/08/2024 07:13 AM Oxygen Saturation (80157-8) 94 % 08/08/2024 10:14 PM Oxygen Saturation (20622-7) 93 % 08/09/2024 07:32 AM Temperature (8310-5) 98.4 [degF] Respiratory Rate (9279-1) 19 /min Heart Rate (8867-4) 103 /min Blood Pressure Systolic (8480-6) 130 mm[Hg] Blood Pressure Diastolic (8462-4) 70 mm[Hg] 08/09/2024 07:31 AM Oxygen Saturation (82785-8) 93 % 08/09/2024 03:06 PM Body Weight (85368-8) 271.5 [lb_av ] Body Mass Index (89219-2) 36.82 kg/m2 08/09/2024 08:52 PM Oxygen Saturation (81582-7) 91 % 08/10/2024 07:00 AM Oxygen Saturation (84834-1) 93 % 08/10/2024 08:44 PM Oxygen Saturation (22531-2) 95 % 08/11/2024 05:59 PM Body Weight (40596-0) 266.6 [lb_av ] Body Mass Index (31975-9) 36.15 kg/m2 08/11/2024 11:26 PM Oxygen Saturation (50058-7) 95 % 08/12/2024 07:44 AM Oxygen Saturation (52045-3) 92 % 08/12/2024 04:47 PM Body Weight (51138-4) 269.6 [lb_av ] Body Mass Index (01150-1) 36.56 kg/m2 08/12/2024 09:59 PM Oxygen Saturation (27793-3) 95 % 08/13/2024 07:55 AM Oxygen Saturation (97856-2) 100 % 08/13/2024 05:19 PM Body Weight (27029-3) 265.6 [lb_av ] Body Mass Index (32741-2) 36.02 kg/m2 08/14/2024 02:27 PM Body Weight (81577-6) 270.4 [lb_av ] Body Mass Index (35326-3) 36.67 kg/m2 08/14/2024 11:29 AM Oxygen Saturation (08412-2) 93 % 08/14/2024 11:28 AM Oxygen Saturation (76753-1) 93 % 08/14/2024 11:45 PM Oxygen Saturation (67148-0) 95 % 08/15/2024 10:31 AM Body Weight (62198-5) 266.2 [lb_av ] Body Mass Index (17261-4) 36.1 kg/m2 08/15/2024 10:17 AM Oxygen Saturation (97851-4) 96 % 08/16/2024 02:52 AM Oxygen Saturation (55235-2) 96 % 08/16/2024 12:52 PM Temperature (8310-5) 98.1 [degF] Oxygen Saturation (17216-4) 97 % Respiratory Rate (9279-1) 19 /min Heart Rate (8867-4) 124 /min Blood Pressure Systolic (8480-6) 122 mm[Hg] Blood Pressure Diastolic (8462-4) 78 mm[Hg] 08/16/2024 11:46 AM Body Weight (37326-0) 270 [lb_av] Body Mass Index (63988-5) 36.61 kg/m2 08/16/2024 11:02 PM Oxygen Saturation (89430-4) 91 % 08/17/2024 07:09 AM Oxygen Saturation (82198-6) 92 % 08/17/2024 04:24 PM Body Weight (56366-9) 271 [lb_av] Body Mass Index (73906-0) 36.75 kg/m2 08/17/2024 09:57 PM Oxygen Saturation (01161-5) 95 % 08/18/2024 07:05 AM Oxygen Saturation (98438-5) 96 % 08/18/2024 04:35 PM Body Weight (48483-9) 271.3 [lb_av ] Body Mass Index (30608-1) 36.79 kg/m2 08/18/2024 09:12 PM Oxygen Saturation (48877-7) 96 % 08/19/2024 04:19 PM Body Weight (78555-5) 271 [lb_av] Body Mass Index (89581-8) 36.75 kg/m2 08/19/2024 09:25 AM Oxygen Saturation (34510-6) 97 % 08/19/2024 09:03 PM Oxygen Saturation (79663-8) 95 % 08/20/2024 09:18 AM Oxygen Saturation (96875-4) 96 % 08/20/2024 03:10 PM Body Weight (42688-7) 271.5 [lb_av ] Body Mass Index (31415-6) 36.82 kg/m2 08/21/2024 09:39 AM Oxygen Saturation (74030-2) 96 % 08/21/2024 08:01 PM Oxygen Saturation (38612-3) 92 % 08/22/2024 07:27 AM Oxygen Saturation (35403-7) 94 % 08/22/2024 08:01 PM Oxygen Saturation (98765-0) 94 % 08/23/2024 07:25 AM Temperature (8310-5) 97.6 [degF] Respiratory Rate (9279-1) 18 /min Heart Rate (8867-4) 120 /min Blood Pressure Systolic (8480-6) 172 mm[Hg] Blood Pressure Diastolic (8462-4) 87 mm[Hg] 08/23/2024 07:24 AM Oxygen Saturation (32881-1) 96 % 08/23/2024 04:37 PM Body Weight (68526-0) 272 [lb_av] Body Mass Index (97724-8) 36.89 kg/m2 08/23/2024 09:59 PM Oxygen Saturation (75780-6) 98 % 08/24/2024 07:05 AM Oxygen Saturation (14340-2) 97 % 08/24/2024 11:31 AM Body Weight (16863-7) 266.4 [lb_av ] Body Mass Index (32651-6) 36.13 kg/m2 08/25/2024 03:24 AM Oxygen Saturation (67247-0) 95 % 08/25/2024 12:10 PM Oxygen Saturation (15671-0) 93 % 08/25/2024 01:50 PM Body Weight (56873-8) 274.4 [lb_av ] Body Mass Index (02732-2) 37.21 kg/m2 08/25/2024 10:54 PM Oxygen Saturation (66315-8) 95 % 08/26/2024 07:50 AM Body Weight (02422-5) 274.5 [lb_av ] Body Mass Index (40757-8) 37.22 kg/m2 08/26/2024 11:31 AM Oxygen Saturation (34797-2) 97 % 08/26/2024 10:24 PM Oxygen Saturation (64462-9) 95 % 08/27/2024 09:58 AM Oxygen Saturation (50620-9) 98 % 08/27/2024 11:46 AM Body Weight (73329-8) 273.4 [lb_av ] Body Mass Index (51452-9) 37.08 kg/m2 08/27/2024 09:39 PM Oxygen Saturation (03032-1) 95 % 08/28/2024 08:32 AM Oxygen Saturation (42006-5) 97 % 08/28/2024 10:01 AM Oxygen Saturation (91327-5) 97 % 08/28/2024 03:22 PM Body Weight (97421-7) 263.8 [lb_av ] Body Mass Index (98612-4) 35.77 kg/m2 08/29/2024 01:23 AM Oxygen Saturation (02010-3) 97 % 08/29/2024 03:42 PM Oxygen Saturation (36906-4) 97 % 08/29/2024 03:41 PM Oxygen Saturation (44901-6) 97 % Body Weight (35204-4) 275 [lb_av] Body Mass Index (93657-2) 37.29 kg/m2 08/30/2024 04:19 AM Oxygen Saturation (65021-0) 98 % Respiratory Rate (9279-1) 16 /min Heart Rate (8867-4) 115 /min Blood Pressure Systolic (8480-6) 144 mm[Hg] Blood Pressure Diastolic (8462-4) 83 mm[Hg] 08/30/2024 04:17 AM Temperature (8310-5) 97 [degF] 08/30/2024 05:52 AM Temperature (8310-5) 96.9 [degF] Oxygen Saturation (47108-7) 97 % Respiratory Rate (9279-1) 18 /min Heart Rate (8867-4) 105 /min Blood Pressure Systolic (8480-6) 127 mm[Hg] Blood Pressure Diastolic (8462-4) 84 mm[Hg] 08/30/2024 11:37 AM Body Weight (09807-3) 269.4 [lb_av ] Body Mass Index (89047-9) 36.53 kg/m2 08/30/2024 09:36 PM Oxygen Saturation (73558-1) 96 % 08/31/2024 06:59 AM Oxygen Saturation (11441-2) 97 % 08/31/2024 08:26 AM Body Weight (43406-2) 275.2 [lb_av ] Body Mass Index (18950-8) 37.32 kg/m2 08/31/2024 08:09 PM Oxygen Saturation (13726-1) 91 % 09/01/2024 06:55 AM Body Weight (70833-8) 273 [lb_av] Body Mass Index (95036-1) 37.02 kg/m2 09/01/2024 06:53 AM Oxygen Saturation (76337-0) 94 % 09/01/2024 11:08 PM Oxygen Saturation (27383-3) 92 % 09/02/2024 07:07 AM Oxygen Saturation (34881-9) 94 % 09/02/2024 01:53 PM Body Weight (07769-5) 270.6 [lb_av ] Body Mass Index (48048-0) 36.7 kg/m2 09/02/2024 09:51 PM Oxygen Saturation (00014-4) 96 % 09/03/2024 07:12 AM Oxygen Saturation (02096-1) 94 % 09/03/2024 09:46 AM Body Weight (96219-8) 274.4 [lb_av ] Body Mass Index (51330-1) 37.21 kg/m2 09/03/2024 07:17 PM Oxygen Saturation (50827-3) 95 % 09/04/2024 03:25 PM Body Weight (65806-1) 271.6 [lb_av ] Body Mass Index (79672-1) 36.83 kg/m2 09/04/2024 05:07 PM Oxygen Saturation (36498-8) 97 % 01/05/2025 07:09 AM Oxygen Saturation (63776-2) 96 % Body Weight (18131-3) 303 [lb_av] Body Mass Index (79778-4) 41.09 kg/m2 01/04/2025 07:22 AM Oxygen Saturation (97952-8) 99 % 12/12/2024 07:34 AM Body Weight (33931-9) 281 [lb_av] Body Mass Index (69406-9) 38.11 kg/m2 12/20/2024 12:48 PM Temperature (8310-5) 98 [degF] Respiratory Rate (9279-1) 16 /min Heart Rate (8867-4) 100 /min Blood Pressure Systolic (8480-6) 120 mm[Hg] Blood Pressure Diastolic (8462-4) 70 mm[Hg] Body Weight (83234-7) 274.4 [lb_av] Body Mass Index (41652-1) 37.21 kg/m2 01/02/2025 08:57 AM Oxygen Saturation (09134-7) 95 % 12/17/2024 06:40 AM Body Weight (51078-9) 298.6 [lb_av ] Body Mass Index (87152-2) 40.49 kg/m2 01/04/2025 08:42 PM Oxygen Saturation (72404-2) 95 % 12/25/2024 10:06 AM Body Weight (97758-9) 302 [lb_av] Body Mass Index (88617-3) 40.95 kg/m2 01/03/2025 11:42 AM Body Weight (10961-5) 295.6 [lb_av ] Body Mass Index (17574-6) 40.09 kg/m2 01/02/2025 11:27 PM Oxygen Saturation (31378-8) 98 % 12/24/2024 05:45 AM Body Weight (10742-1) 301.4 [lb_av ] Body Mass Index (49992-4) 40.87 kg/m2 12/29/2024 11:54 AM Body Weight (31184-4) 310 [lb_av] Body Mass Index (71346-1) 42.04 kg/m2 01/03/2025 02:44 PM Temperature (8310-5) 97.1 [degF] Respiratory Rate (9279-1) 20 /min Heart Rate (8867-4) 104 /min Blood Pressure Systolic (8480-6) 94 mm[Hg] Blood Pressure Diastolic (8462-4) 56 mm[Hg] 12/18/2024 09:12 AM Body Weight (77899-7) 288.2 [lb_av ] Body Mass Index (81405-5) 39.08 kg/m2 12/31/2024 05:12 AM Body Weight (76367-2) 298.4 [lb_av ] Body Mass Index (76127-1) 40.47 kg/m2 12/05/2024 06:11 AM Body Weight (88264-0) 293.2 [lb_av ] Body Mass Index (08860-6) 39.76 kg/m2 12/01/2024 11:30 AM Body Weight (80796-1) 294 [lb_av] Body Mass Index (56677-6) 39.87 kg/m2 01/02/2025 06:30 AM Body Weight (10179-8) 299.6 [lb_av ] Body Mass Index (62473-7) 40.63 kg/m2 12/13/2024 07:19 AM Temperature (8310-5) 97.9 [degF] Respiratory Rate (9279-1) 16 /min Heart Rate (8867-4) 113 /min Blood Pressure Systolic (8480-6) 148 mm[Hg] Blood Pressure Diastolic (8462-4) 72 mm[Hg] Body Weight (88546-5) 288.8 [lb_av] Body Mass Index (90090-2) 39.16 kg/m2 12/06/2024 11:58 AM Body Weight (48629-1) 298.2 [lb_av ] Body Mass Index (59972-6) 40.44 kg/m2 12/08/2024 07:13 AM Body Weight (58516-6) 297.4 [lb_av ] Body Mass Index (11944-5) 40.33 kg/m2 12/15/2024 08:38 AM Body Weight (85623-3) 295.4 [lb_av ] Body Mass Index (87325-9) 40.06 kg/m2 01/03/2025 02:43 PM Oxygen Saturation (01859-7) 96 % 12/10/2024 07:01 AM Body Weight (25336-6) 299.6 [lb_av ] Body Mass Index (98014-4) 40.63 kg/m2 01/01/2025 11:49 AM Oxygen Saturation (49857-7) 94 % 12/07/2024 07:16 AM Body Weight (69758-8) 300 [lb_av] Body Mass Index (87542-6) 40.68 kg/m2 12/30/2024 05:48 AM Body Weight (50107-4) 313 [lb_av] Body Mass Index (40767-7) 42.45 kg/m2 12/11/2024 10:23 AM Body Weight (42805-5) 297 [lb_av] Body Mass Index (68361-2) 40.28 kg/m2 11/30/2024 07:19 AM Body Weight (76527-4) 285 [lb_av] Body Mass Index (44965-0) 38.65 kg/m2 12/23/2024 07:01 AM Body Weight (35928-3) 298.4 [lb_av ] Body Mass Index (70100-4) 40.47 kg/m2 01/01/2025 05:22 AM Body Weight (23509-6) 299.6 [lb_av ] Body Mass Index (43398-9) 40.63 kg/m2 12/30/2024 11:55 AM Body Weight (68932-8) 301.6 [lb_av ] Body Mass Index (18842-2) 40.9 kg/m2 12/26/2024 06:02 AM Body Weight (15878-2) 302 [lb_av] Body Mass Index (82378-4) 40.95 kg/m2 12/16/2024 06:37 AM Body Weight (74144-8) 294.6 [lb_av ] Body Mass Index (31690-4) 39.95 kg/m2 12/06/2024 04:45 PM Temperature (8310-5) 97.7 [degF] Respiratory Rate (9279-1) 18 /min Heart Rate (8867-4) 105 /min Blood Pressure Systolic (8480-6) 105 mm[Hg] Blood Pressure Diastolic (8462-4) 52 mm[Hg] 12/04/2024 07:53 AM Body Weight (52868-7) 290.4 [lb_av ] Body Mass Index (56088-0) 39.38 kg/m2 12/02/2024 06:42 AM Body Weight (77997-1) 288 [lb_av] Body Mass Index (79635-7) 39.06 kg/m2 12/01/2024 05:27 AM Body Weight (09046-6) 277.6 [lb_av ] Body Mass Index (24477-5) 37.65 kg/m2 01/01/2025 05:38 AM Oxygen Saturation (53465-8) 97 % 12/31/2024 08:17 PM Oxygen Saturation (86969-7) 98 % 12/27/2024 10:43 AM Temperature (8310-5) 97.4 [degF] Respiratory Rate (9279-1) 18 /min Heart Rate (8867-4) 96 /min Blood Pressure Systolic (8480-6) 122 mm[Hg] Blood Pressure Diastolic (8462-4) 78 mm[Hg] 12/21/2024 05:58 AM Body Weight (81020-8) 295.2 [lb_av ] Body Mass Index (83948-7) 40.03 kg/m2 12/14/2024 06:54 AM Body Weight (87200-1) 294.6 [lb_av ] Body Mass Index (72085-8) 39.95 kg/m2 12/03/2024 06:29 AM Body Weight (91252-7) 290.6 [lb_av ] Body Mass Index (05543-9) 39.41 kg/m2 11/29/2024 07:50 AM Temperature (8310-5) 97.4 [degF] Respiratory Rate (9279-1) 18 /min Heart Rate (8867-4) 115 /min Blood Pressure Systolic (8480-6) 131 mm[Hg] Blood Pressure Diastolic (8462-4) 62 mm[Hg] 01/04/2025 07:23 AM Body Weight (71675-2) 305.8 [lb_av ] Body Mass Index (42687-9) 41.47 kg/m2 01/03/2025 11:38 PM Oxygen Saturation (00302-3) 96 % 12/28/2024 07:17 AM Body Weight (22597-8) 299.6 [lb_av ] Body Mass Index (35975-0) 40.63 kg/m2 12/27/2024 06:58 AM Body Weight (45849-5) 298.8 [lb_av ] Body Mass Index (96543-2) 40.52 kg/m2 12/22/2024 07:02 AM Body Weight (31754-9) 301.2 [lb_av ] Body Mass Index (92590-0) 40.85 kg/m2 12/19/2024 06:07 AM Body Weight (12752-2) 277.6 [lb_av ] Body Mass Index (36256-9) 37.65 kg/m2 12/09/2024 07:12 AM Body Weight (22530-0) 294.4 [lb_av ] Body Mass Index (81871-0) 39.92 kg/m2 11/22/2024 11:41 AM Temperature (8310-5) 97.5 [degF] Respiratory Rate (9279-1) 20 /min Heart Rate (8867-4) 116 /min Blood Pressure Systolic (8480-6) 151 mm[Hg] Blood Pressure Diastolic (8462-4) 68 mm[Hg] 11/28/2024 06:48 AM Body Weight (58629-3) 285.4 [lb_av ] Body Mass Index (68282-9) 38.7 kg/m2 11/25/2024 05:10 AM Body Weight (28366-7) 288.4 [lb_av ] Body Mass Index (25134-7) 39.11 kg/m2 11/24/2024 07:14 AM Body Weight (91763-1) 284.6 [lb_av ] Body Mass Index (09971-7) 38.59 kg/m2 11/23/2024 07:05 AM Body Weight (61329-2) 284.6 [lb_av ] Body Mass Index (47150-0) 38.59 kg/m2 11/22/2024 06:30 AM Body Weight (72382-4) 287.4 [lb_av ] Body Mass Index (20460-4) 38.97 kg/m2 11/26/2024 06:21 AM Body Weight (86495-2) 284.4 [lb_av ] Body Mass Index (48702-3) 38.57 kg/m2 11/21/2024 06:29 AM Body Weight (63515-3) 284.4 [lb_av ] Body Mass Index (08257-8) 38.57 kg/m2 11/19/2024 11:26 AM Body Weight (97854-9) 286.5 [lb_av ] Body Mass Index (30004-2) 38.85 kg/m2 11/29/2024 07:04 AM Body Weight (36697-9) 280.6 [lb_av ] Body Mass Index (15453-6) 38.05 kg/m2 11/27/2024 05:02 AM Body Weight (80557-0) 288 [lb_av] Body Mass Index (58256-8) 39.06 kg/m2 11/20/2024 11:16 AM Body Weight (74359-2) 285.2 [lb_av ] Body Mass Index (67546-8) 38.68 kg/m2 10/25/2024 08:08 AM Body Weight (66024-6) 285.6 [lb_av ] Body Mass Index (17004-9) 38.73 kg/m2 11/14/2024 07:07 AM Body Weight (66166-2) 280.6 [lb_av ] Body Mass Index (63767-6) 38.05 kg/m2 11/15/2024 11:25 AM Temperature (8310-5) 97.3 [degF] Respiratory Rate (9279-1) 17 /min Heart Rate (8867-4) 70 /min Blood Pressure Systolic (8480-6) 122 mm[Hg] Blood Pressure Diastolic (8462-4) 74 mm[Hg] 11/03/2024 05:52 PM Body Weight (10721-2) 286 [lb_av] Body Mass Index (41694-1) 38.78 kg/m2 11/02/2024 07:15 AM Body Weight (56233-1) 285.6 [lb_av ] Body Mass Index (10625-1) 38.73 kg/m2 10/23/2024 09:44 AM Body Weight (65959-4) 287 [lb_av] Body Mass Index (30785-0) 38.92 kg/m2 11/17/2024 06:06 AM Body Weight (26852-5) 283.4 [lb_av ] Body Mass Index (45781-6) 38.43 kg/m2 10/24/2024 09:36 AM Body Weight (31292-3) 287.6 [lb_av ] Body Mass Index (39974-1) 39 kg/m2 11/18/2024 06:34 AM Body Weight (36690-5) 283 [lb_av] Body Mass Index (42924-1) 38.38 kg/m2 11/16/2024 07:23 AM Body Weight (90156-2) 283.6 [lb_av ] Body Mass Index (20238-9) 38.46 kg/m2 11/10/2024 06:51 AM Body Weight (94878-4) 283 [lb_av] Body Mass Index (10535-0) 38.38 kg/m2 11/09/2024 06:52 AM Body Weight (89892-0) 285.6 [lb_av ] Body Mass Index (60470-2) 38.73 kg/m2 11/12/2024 06:57 AM Body Weight (86918-2) 285 [lb_av] Body Mass Index (74343-2) 38.65 kg/m2 11/06/2024 08:21 AM Body Weight (58148-4) 286.6 [lb_av ] Body Mass Index (14616-7) 38.87 kg/m2 11/04/2024 05:46 AM Body Weight (59103-1) 283 [lb_av] Body Mass Index (62912-5) 38.38 kg/m2 10/30/2024 09:17 AM Body Weight (85378-2) 284.8 [lb_av ] Body Mass Index (59509-9) 38.62 kg/m2 10/16/2024 08:32 AM Body Weight (64649-1) 288.4 [lb_av ] Body Mass Index (08464-9) 39.11 kg/m2 11/15/2024 07:34 AM Body Weight (28586-5) 289 [lb_av] Body Mass Index (69274-5) 39.19 kg/m2 10/26/2024 02:47 PM Body Weight (98154-6) 286.2 [lb_av ] Body Mass Index (87531-3) 38.81 kg/m2 10/21/2024 08:55 AM Body Weight (15609-1) 285.4 [lb_av ] Body Mass Index (48166-7) 38.7 kg/m2 10/13/2024 11:08 AM Body Weight (40230-5) 282 [lb_av] Body Mass Index (49906-7) 38.24 kg/m2 10/09/2024 07:53 AM Body Weight (78009-3) 276.6 [lb_av ] Body Mass Index (78248-3) 37.51 kg/m2 11/01/2024 01:35 PM Body Weight (97662-4) 284.4 [lb_av ] Body Mass Index (61434-8) 38.57 kg/m2 10/18/2024 07:54 AM Body Weight (12044-0) 290 [lb_av] Body Mass Index (81922-5) 39.33 kg/m2 10/11/2024 08:15 AM Body Weight (43148-6) 282.2 [lb_av ] Body Mass Index (47672-1) 38.27 kg/m2 10/08/2024 07:35 AM Body Weight (22684-1) 279 [lb_av] Body Mass Index (94769-3) 37.84 kg/m2 10/29/2024 06:59 AM Body Weight (23212-8) 282.4 [lb_av ] Body Mass Index (10540-9) 38.3 kg/m2 10/22/2024 11:33 AM Body Weight (63157-8) 279.2 [lb_av ] Body Mass Index (52512-1) 37.86 kg/m2 10/17/2024 11:07 AM Body Weight (33030-5) 287.6 [lb_av ] Body Mass Index (00643-2) 39 kg/m2 11/11/2024 06:57 AM Body Weight (69759-4) 284 [lb_av] Body Mass Index (40584-4) 38.51 kg/m2 10/15/2024 12:36 PM Body Weight (72537-8) 286.6 [lb_av ] Body Mass Index (27131-9) 38.87 kg/m2 11/08/2024 05:20 PM Temperature (8310-5) 98 [degF] Respiratory Rate (9279-1) 19 /min Heart Rate (8867-4) 96 /min Blood Pressure Systolic (8480-6) 132 mm[Hg] Blood Pressure Diastolic (8462-4) 81 mm[Hg] 11/05/2024 11:18 AM Body Weight (77860-2) 288 [lb_av] Body Mass Index (64019-3) 39.06 kg/m2 10/19/2024 07:43 AM Body Weight (86061-3) 284 [lb_av] Body Mass Index (44110-0) 38.51 kg/m2 11/08/2024 06:19 AM Body Weight (36190-6) 285.6 [lb_av ] Body Mass Index (22405-7) 38.73 kg/m2 10/28/2024 06:59 AM Body Weight (10022-7) 287.2 [lb_av ] Body Mass Index (12150-3) 38.95 kg/m2 10/27/2024 08:42 AM Body Weight (46443-7) 285.6 [lb_av ] Body Mass Index (00787-5) 38.73 kg/m2 11/13/2024 08:24 AM Body Weight (53685-9) 286.4 [lb_av ] Body Mass Index (23155-8) 38.84 kg/m2 11/07/2024 08:28 AM Body Weight (93514-3) 288 [lb_av] Body Mass Index (35367-5) 39.06 kg/m2 10/31/2024 07:30 AM Body Weight (61589-3) 276.2 [lb_av ] Body Mass Index (81876-6) 37.46 kg/m2 10/20/2024 08:25 AM Body Weight (83406-6) 287.6 [lb_av ] Body Mass Index (89608-4) 39 kg/m2 10/14/2024 08:23 AM Body Weight (96687-0) 277.4 [lb_av ] Body Mass Index (19891-0) 37.62 kg/m2 11/03/2024 05:32 PM Body Weight (83274-9) 286 [lb_av] Body Mass Index (85893-6) 38.78 kg/m2 10/10/2024 10:20 AM Body Weight (99329-9) 175 [lb_av] Body Mass Index (62206-4) 23.73 kg/m2 11/01/2024 08:39 AM Temperature (8310-5) 97.1 [degF] Respiratory Rate (9279-1) 18 /min Heart Rate (8867-4) 119 /min Blood Pressure Systolic (8480-6) 116 mm[Hg] Blood Pressure Diastolic (8462-4) 75 mm[Hg] 10/12/2024 09:27 AM Body Weight (34903-0) 281.4 [lb_av ] Body Mass Index (81419-8) 38.16 kg/m2 01/05/2025 08:13 PM Oxygen Saturation (70808-2) 98 % 01/06/2025 07:03 AM Oxygen Saturation (54536-8) 97 % 01/06/2025 07:04 AM Body Weight (98791-4) 319 [lb_av] Body Mass Index (19146-5) 43.26 kg/m2 01/06/2025 08:54 PM Oxygen Saturation (22338-8) 99 % 01/07/2025 07:10 AM Oxygen Saturation (70507-1) 98 % Body Weight (92990-6) 309 [lb_av] Body Mass Index (92377-7) 41.9 kg/m2 01/07/2025 07:59 PM Oxygen Saturation (08941-9) 97 % 01/08/2025 08:37 AM Oxygen Saturation (05861-2) 97 % Body Weight (21907-9) 322 [lb_av] Body Mass Index (34334-2) 43.67 kg/m2 01/08/2025 06:15 PM Oxygen Saturation (38569-6) 94 % 01/09/2025 07:16 AM Body Weight (57840-2) 314.6 [lb_av ] Body Mass Index (75942-0) 42.66 kg/m2 01/09/2025 07:15 AM Oxygen Saturation (35671-5) 99 % 01/10/2025 07:28 AM Temperature (8310-5) 98.4 [degF] Oxygen Saturation (24999-2) 92 % Respiratory Rate (9279-1) 18 /min Heart Rate (8867-4) 112 /min Blood Pressure Systolic (8480-6) 127 mm[Hg] Blood Pressure Diastolic (8462-4) 52 mm[Hg] 01/10/2025 05:37 AM Body Weight (58141-6) 324 [lb_av] Body Mass Index (09037-5) 43.94 kg/m2 01/10/2025 08:23 PM Oxygen Saturation (52722-3) 96 % 01/11/2025 07:26 AM Oxygen Saturation (44987-4) 98 % Body Weight (63991-9) 320.6 [lb_av] Body Mass Index (33323-0) 43.48 kg/m2 01/11/2025 06:34 PM Oxygen Saturation (46109-5) 97 % 01/12/2025 07:12 AM Oxygen Saturation (21753-0) 99 % Body Weight (90002-7) 334 [lb_av] Body Mass Index (94353-9) 45.29 kg/m2 01/12/2025 11:30 PM Oxygen Saturation (94757-9) 94 % 01/13/2025 05:17 AM Body Weight (58374-6) 329.2 [lb_av ] Body Mass Index (40627-0) 44.64 kg/m2 01/13/2025 10:06 AM Oxygen Saturation (12829-5) 96 % Social History No smoking Hx information available Encounters Type CPT Code Date Location Provider Indication s encounter report 02/24/2024 05:25 PM Karen Parker DO 01 Advance Directives Directive Description Verification Date Supporting Document(s) Other Directive
--- OUTSIDE RECORDS SUMMARY | 2025-01-13 19:36 | XMS_ITS | Encounter Summary ---
Author Organization [facility] Address [address] [place] [address] Care Team Providers Care Plc Engineer Name Role Phone Cuba Solano MD Primary Care Provider [phone] [phone] Encounter Details Date Type Department Care Team (Latest Contact Info) Description 07/30/2005 Outpatient Historical [facility] Family Medicine [place] [id number] [address] Keyona Mccloud, LUCIEN NO ADDRESS ON FILE Unspecified Otitis Media (Primary Dx) Social History Tobacco Use Types Packs/Day Years Used Date Smoking Tobacco: Never Assessed Sex and Gender Information Value Date Recorded Sex Assigned at Not on file 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
--- OUTSIDE RECORDS SUMMARY | 2025-01-13 19:36 | XMS_ITS | Encounter Summary ---
Author Organization [facility] Address [address] [place] [address] Care Team Providers Care Wood And Wood Products Labourer Name Role Phone Cuba Solano MD Primary Care Provider +1 [phone] Encounter Details Date Type Department Care Team (Latest Contact Info) Description 05/15/2005 Outpatient Historical [facility] Family Medicine [place] [id number] [address] [address] Keyona Mccloud, LUCIEN NO ADDRESS ON FILE DIABETES MELLITUS TYPE II-UNCOMPL (CMS/HCC) (Primary Dx); HYPERLIPIDEMIA NEC/NOS; ACUTE URI NOS Social History Tobacco Use Types Packs/Day Years Used Date Smoking Tobacco: Never Assessed Sex and Gender Information Value Date Recorded Sex Assigned at Not on file 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
--- OUTSIDE RECORDS SUMMARY | 2025-01-13 19:36 | XMS_ITS | Encounter Summary ---
Author Organization [facility] Address [address] [place] [address] Care Team Providers Care Booster Pump Operator Name Role Phone Cuba Solano MD Primary Care Provider +1 [phone] Encounter Details Date Type Department Care Team (Latest Contact Info) Description 05/26/2005 Outpatient Historical [facility] Family Medicine [place] [id number] [address] [address] Keyona Mccloud, LUCIEN NO ADDRESS ON FILE ALLERGY, UNSPECIFIED (Primary Dx); TRACHEA/BRONCHUS DIS NEC Social History Tobacco Use Types Packs/Day Years Used Date Smoking Tobacco: Never Assessed Sex and Gender Information Value Date Recorded Sex Assigned at Not on file 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
--- OUTSIDE RECORDS SUMMARY | 2025-01-13 19:36 | XMS_ITS | Encounter Summary ---
Author Organization [facility] Address [address] [place] [address] Care Team Providers Care Cooler Operator Name Role Phone Cuba Solano MD Primary Care Provider [phone] [phone] Encounter Details Date Type Department Care Team (Latest Contact Info) Description 07/20/2005 Outpatient Historical [facility] [facility] 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
--- OUTSIDE RECORDS SUMMARY | 2025-01-13 19:37 | XMS_ITS | Encounter Summary ---
Author Organization [facility] Address [address] [place] [address] Care Team Providers Care Insurance Loss Adjuster Name Role Phone Cuba Solano MD Primary Care Provider [phone] [phone] Encounter Details Date Type Department Care Team (Latest Contact Info) Description 04/12/2006 Outpatient Historical [facility] Family Medicine [place] [facility] [address] [address] Huey Upton Jr., MD [address] [place] [address] 248 [facility] [address] [place] [address] Dysphagia (Primary Dx); Unspecified Essential Hypertension Social History Tobacco Use Types Packs/Day Years Used Date Smoking Tobacco: Never Assessed Sex and Gender Information Value Date Recorded Sex Assigned at Not on file 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
--- OUTSIDE RECORDS SUMMARY | 2025-01-13 19:37 | XMS_ITS | Encounter Summary ---
Author Organization [facility] Address [address] [place] [address] Care Team Providers Care Data Base Administrator Name Role Phone Cuba Solano MD Primary Care Provider [phone] [phone] Encounter Details Date Type Department Care Team (Latest Contact Info) Description 07/08/2006 Outpatient Historical [facility] Family Medicine [place] 6467[address] [address] Keyona Mccloud, STAINED GLASS JOINER NO ADDRESS ON FILE Allergy, Unspecified not Elsewhere Classified (Primary Dx) Social History Tobacco Use Types Packs/Day Years Used Date Smoking Tobacco: Never Assessed Sex and Gender Information Value Date Recorded Sex Assigned at Not on file Legal 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
--- OUTSIDE RECORDS SUMMARY | 2025-01-13 19:37 | XMS_ITS | Encounter Summary ---
Author Organization [facility] Address [address] [place] [address] Care Team Providers Care Bottle Filler Name Role Phone Cuba Solano MD Primary Care Provider [phone] [phone] Encounter Details Date Type Department Care Team (Latest Contact Info) Description 03/16/2006 Outpatient Historical [facility] Orthopedics- 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
--- OUTSIDE RECORDS SUMMARY | 2025-01-13 19:37 | XMS_ITS | Encounter Summary ---
Author Organization [facility] Address [address] [place] [address] Care Team Providers Care Durability Technician Name Role Phone Cuba Solano MD Primary Care Provider [phone] [phone] Encounter Details Date Type Department Care Team (Latest Contact Info) Description 07/14/2004 Outpatient Historical [facility] Family Medicine [place] [address] [address] Keyona Mccloud, LUCIEN NO ADDRESS ON FILE THRUSH (Primary Dx); JOINT PAIN-L/LEG Social History Tobacco Use Types Packs/Day Years Used Date Smoking Tobacco: Never Assessed Sex and Gender Information Value Date Recorded Sex Assigned at Not on file Legal Sex Male 2:49 AM ACTUARIAL INTERN Gender Identity Not on file Sexual Orientation Not on file documented as of this encounter Plan of Treatment Not on file documented as of this encounter Visit Diagnoses Diagnosis Candidiasis of mouth- Primary Pain in joint, lower leg documented in this encounter Care Teams Durability Technician Relationship Specialty Start Date End Date Cuba Solano MD PCP - General 07/11/09 documented as of this encounter
--- OUTSIDE RECORDS SUMMARY | 2025-01-13 19:37 | XMS_ITS | Encounter Summary ---
Author Organization [facility] Address [address] [place] [address] Care Team Providers Care Vp Customer Service Name Role Phone Cuba Solano MD Primary Care Provider [phone] [phone] Encounter Details Date Type Department Care Team (Latest Contact Info) Description 02/06/2005 Outpatient Historical [facility] Family Medicine [place] [facility] [address] [address] Huey Upton Jr., MD [address] [place] [address] 248 [facility] [address] [place] [address] HAIR DISEASES NEC (Primary Dx); DIABETES MELLITUS TYPE II-UNCOMPL (CMS/[facility]); Dysfunct eustachian tube; Vaccine for influenza Social History Tobacco Use Types Packs/Day Years Used Date Smoking Tobacco: Never Assessed Sex and Gender Information Value Date Recorded Sex Assigned at Not on file Legal 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 Male 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 Gender Identity Not on file Sexual Orientation Not on file documented as of this encounter Plan of Treatment Not on file documented as of this encounter Visit Diagnoses Diagnosis Other specified disease of hair and hair follicles- Primary Type II or unspecified type diabetes mellitus 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, not stated as uncontrolled Dysfunct eustachian tube Dysfunction of Eustachian tube Vaccine for influenza Need for prophylactic vaccination and inoculation against influenza documented in this encounter Care Teams Vp Customer Service Relationship Specialty Start Date End Date Cuba Solano MD PCP - General 07/11/09 documented as of this encounter
--- OUTSIDE RECORDS SUMMARY | 2025-01-13 19:37 | XMS_ITS | Encounter Summary ---
Author Organization [facility] Address [address] [place] [address] Care Team Providers Care Attending Pathologist Name Role Phone Cuba Solano MD Primary Care Provider +1 -[phone] Encounter Details Date Type Department Care Team (Latest Contact Info) Description 01/09/2005 Outpatient Historical [facility] Family Medicine Angelica [facility] [address] [address] Huey Upton Jr., MD [address] [place] [address] 248 [facility] 140 [place] [address] DERMATITIS NEC (Primary Dx) Social History Tobacco Use Types Packs/Day Years Used Date Smoking Tobacco: Never Assessed Sex and Gender Information Value Date Recorded Sex Assigned at Not on file Legal Sex Male 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
--- OUTSIDE RECORDS SUMMARY | 2025-01-13 19:37 | XMS_ITS | Encounter Summary ---
Author Organization [facility] Address [address] [place] [address] Care Team Providers Care Ged Preparation Teacher Name Role Phone Cuba Solano MD Primary Care Provider +1 -[phone] Encounter Details Date Type Department Care Team (Latest Contact Info) Description 07/15/2006 Outpatient Historical [facility] [address] [place] [address] [facility] [address] [place] [address] Ash Lopez III, MD [address] [place] [address] Adhesive Capsulitis of Shoulder (Primary Dx) Social History Tobacco Use Types Packs/Day Years Used Date Smoking Tobacco: Never Assessed Sex and Gender Information Value Date Recorded Sex Assigned at Not on file Legal 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 Male 2: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 CONSUMER Gender Identity Not on file Sexual Orientation Not on file documented as of this encounter Plan of Treatment Not on file documented as of this encounter Procedures Procedure Name Priority Date/Time Associated Diagnosis Comments POC GLUCOSE Routine 07/15/2006 12:58 PM CDT POC GLUCOSE Routine 07/15/2006 11:02 AM CDT documented in this encounter Results * (ABNORMAL) POC GLUCOSE (07/15/2006 12:58 PM CDT) GLUCOSE POC 104(H) 60 - 100 mg/dL INTERFACE SYSTEM 07/15/2006 12:5 8 PM CDT Ash Lopez III, MD POINT OF CARE TESTING Edited Performing Organization Address City/[facility] Co de Phone Number INTERFACE SYSTEM Refer to clinic/hospital department * (ABNORMAL) POC GLUCOSE (07/15/2006 11:02 AM CDT) GLUCOSE POC 116(H) 60 - 100 mg/dL INTERFACE SYSTEM 07/15/2006 11:0 2 AM CDT Ash Lpoez III, MD POINT OF CARE TESTING Edited Performing Organization Address [facility] de Phone Number INTERFACE SYSTEM Refer to clinic/hospital department documented in this encounter Visit Diagnoses Diagnosis Adhesive capsulitis of shoulder- Primary documented in this encounter Care Teams Ged Preparation Teacher Relationship Specialty Start Date End Date Cuba Solano MD PCP - General 07/11/09 documented as of this encounter
--- OUTSIDE RECORDS SUMMARY | 2025-01-13 19:37 | XMS_ITS | Encounter Summary ---
Author Organization [facility] Address [address] [place] [address] Care Team Providers Care Search Coordinator Name Role Phone Cuba Solano MD Primary Care Provider +1 -[phone] Encounter Details Date Type Department Care Team (Latest Contact Info) Description 12/03/2004 Outpatient Historical [facility] Orthopedics- [address] [place] [address] [place] [address] [place] [address] Arcelia Lockhart, VIVIANE [address] [place] [address] LOC PRIM OSTEOART-L/LEG (Primary Dx) Social History Tobacco Use Types Packs/Day Years Used Date Smoking Tobacco: Never Assessed Sex and Gender Information Value Date Recorded Sex Assigned at Not on file Legal Sex Male 2:49 AM HEAD OF IT Gender Identity Not on file Sexual Orientation Not on file documented as of this encounter Plan of Treatment Not on file documented as of this encounter Visit Diagnoses Diagnosis Primary localized osteoarthrosis, lower leg- Primary documented in this encounter Care Teams Search Coordinator Relationship Specialty Start Date End Date Cuba Solano MD PCP - General 07/11/09 documented as of this encounter
--- OUTSIDE RECORDS SUMMARY | 2025-01-13 19:37 | XMS_ITS | Encounter Summary ---
Author Organization [facility] Address [address] [place] [address] Care Team Providers Care Water Treatment Plant Mechanic Name Role Phone Cuba Solano MD Primary Care Provider +1 [phone] Encounter Details Date Type Department Care Team (Latest Contact Info) Description 10/21/2004 Outpatient Historical [facility] Family Medicine Angelica [facility] [address] [address] Huey Upton Jr., MD [address] [place] [address] 248 [facility] 140 [place] [address] ACUTE SINUSITIS NOS (Primary Dx) Social History Tobacco Use Types Packs/Day Years Used Date Smoking Tobacco: Never Assessed Sex and Gender Information Value Date Recorded Sex Assigned at Not on file Legal Sex Male 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
--- OUTSIDE RECORDS SUMMARY | 2025-01-13 19:37 | XMS_ITS | Encounter Summary ---
Author Organization [facility] Address [address] [place] [address] Care Team Providers Care Insight Director Name Role Phone Cuba Solano MD Primary Care Provider +1 [phone] Encounter Details Date Type Department Care Team (Late st Contact Info) Description 08/04/2005 Outpatient Historical [facility] Family Medicine Angelica [place] [address] [address] Social History Tobacco Use Types Packs/Day Years Used Date Smoking Tobacco: Never Assessed Sex and Gender Information Value Date Recorded Sex Assigned at Not on file Legal Sex Male 2:49 AM HOSPITAL CODER Gender Identity Not on file Sexual Orientation Not on file documented as of this encounter Plan of Treatment Not on file documented as of this encounter Visit Diagnoses Not on filedocumented in this encounter Care Teams Insight Director Relationship Specialty Start Date End Date Cuba Solano MD PCP - General 07/11/09 documented as of this encounter
--- OUTSIDE RECORDS SUMMARY | 2025-01-13 19:37 | XMS_ITS | Encounter Summary ---
Author Organization [facility] Address [address] [place] [address] Care Team Providers Care Gut Carrier Name Role Phone Cuba Solano MD Primary Care Provider +1 [phone] Encounter Details Date Type Department Care Team (Latest Contact Info) Description 11/18/[address] [facility] Orthopedics- [address] [place] [address] Ash Lopez III, MD [address] [place] [address] LOC PRIM OSTEOART-L/LEG (Primary Dx) Social History Tobacco Use Types Packs/Day Years Used Date Smoking Tobacco: Never Assessed Sex and Gender Information Value Date Recorded Sex Assigned at Not on file Legal Sex Male 2:49 AM MEDIA SPECIALIST Gender Identity Not on file Sexual Orientation Not on file documented as of this encounter Plan of Treatment Not on file documented as of this encounter Visit Diagnoses Diagnosis Primary localized osteoarthrosis, lower leg- Primary documented in this encounter Care Teams Gut Carrier Relationship Specialty Start Date End Date Cuba Solano MD PCP - General 07/11/09 documented as of this encounter
--- OUTSIDE RECORDS SUMMARY | 2025-01-13 19:37 | XMS_ITS | Encounter Summary ---
Author Organization [facility] Address [address] [place] [address] Care Team Providers Care College And Career Counselor Name Role Phone Cuba Solano MD Primary Care Provider +1 [phone] Encounter Details Date Type Department Care Team (Latest Contact Info) Description 06/26/2004 Outpatient Historical [facility] Family Medicine Angelica [place] [id number] [address] Keyona Mccloud, CONCRETE HOPPER OPERATOR NO ADDRESS ON FILE ALLERGY, UNSPECIFIED (Primary Dx) Social History Tobacco Use Types Packs/Day Years Used Date Smoking Tobacco: Never Assessed Sex and Gender Information Value Date Recorded Sex Assigned at Not on file Legal Sex Male 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
--- OUTSIDE RECORDS SUMMARY | 2025-01-13 19:37 | XMS_ITS | Encounter Summary ---
Author Organization [facility] Address [address] [place] [address] Care Team Providers Care Project Developer Name Role Phone Cuba Solano MD Primary Care Provider +1 [phone] Encounter Details Date Type Department Care Team (Latest Contact Info) Description 03/05/2006 Outpatient Historical [facility] Family Medicine Angelica [place] [address] [address] Keyona Mccloud, LUCIEN NO ADDRESS ON FILE Unspecified Essential Hypertension (Primary Dx); Edema Social History Tobacco Use Types Packs/Day Years Used Date Smoking Tobacco: Never Assessed Sex and Gender Information Value Date Recorded Sex Assigned at Not on file Legal Sex Male 2:49 AM PROTECTIVE OFFICER Gender Identity Not on file Sexual Orientation Not on file documented as of this encounter Plan of Treatment Not on file documented as of this encounter Visit Diagnoses Diagnosis Unspecified essential hypertension- Primary Edema documented in this encounter Care Teams Project Developer Relationship Specialty Start Date End Date Cuba Solano MD PCP - General 07/11/09 documented as of this encounter
--- OUTSIDE RECORDS SUMMARY | 2025-01-13 19:37 | XMS_ITS | Encounter Summary ---
Author Organization [facility] Address [address] [place] [address] Care Team Providers Care Lending Consultant Name Role Phone Cuba Solano MD Primary Care Provider +1 [phone] Encounter Details Date Type Department Care Team (Latest Contact Info) Description 03/29/[address] [facility] Family Medicine Angelica [place] [address] [address] Keyona Mccloud, LUCIEN NO ADDRESS ON FILE Unspecified Essential Hypertension (Primary Dx) Social History Tobacco Use Types Packs/Day Years Used Date Smoking Tobacco: Never Assessed Sex and Gender Information Value Date Recorded Sex Assigned at Not on file Legal Sex Male 2:49 AM GARMENT INSPECTOR Gender Identity Not on file Sexual Orientation Not on file documented as of this encounter Plan of Treatment Not on file documented as of this encounter Visit Diagnoses Diagnosis Unspecified essential hypertension- Primary documented in this encounter Care Teams Lending Consultant Relationship Specialty Start Date End Date Cuba Solano MD PCP - General 07/11/09 documented as of this encounter
--- OUTSIDE RECORDS SUMMARY | 2025-01-13 19:37 | XMS_ITS | Encounter Summary ---
Author Organization [facility] Address [address] [place] [address] Care Team Providers Care Dye Padder Operator Name Role Phone Cuba Solano MD Primary Care Provider +1 [phone] Encounter Details Date Type Department Care Team (Latest Contact Info) Description 07/05/2006 [facility] [address] [place] [address] Huey Upton Jr., MD [address] [place] [address] [address] [place] [address] DM w/o Complication Type II (CMS/HCC) (Primary Dx) Social History Tobacco Use Types Packs/Day Years Used Date Smoking Tobacco: Never Assessed Sex and Gender Information Value Date Recorded Sex Assigned at Not on file Legal Sex Male 2:49 AM HOME INSURANCE AGENT Gender Identity Not on file Sexual Orientation Not on file documented as of this encounter Plan of Treatment Not on file documented as of this encounter Visit Diagnoses Diagnosis Type II or unspecified type diabetes mellitus 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, not stated as uncontrolled- Primary documented in this encounter Care Teams Dye Padder Operator Relationship Specialty Start Date End Date Cuba Solano MD PCP - General 07/11/09 documented as of this encounter
--- OUTSIDE RECORDS SUMMARY | 2025-01-13 19:37 | XMS_ITS | Encounter Summary ---
Author Organization [facility] Address [address] [place] [address] Care Team Providers Care Nail Kegger Name Role Phone Cuba Solano MD Primary Care Provider +1 [phone] Encounter Details Date Type Department Care Team (Latest Contact Info) Description 08/28/2005 Outpatient Historical [facility] Family Medicine Angelica [facility] [address] [address] Huey Upton Jr., MD [address] [place] [address] 248 [facility] 140 [place] [address] Pain in Joint, Shoulder Region (Primary Dx); Lumbago Social History Tobacco Use Types Packs/Day Years Used Date Smoking Tobacco: Never Assessed Sex and Gender Information Value Date Recorded Sex Assigned at Not on file Legal Sex Male 2: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
--- OUTSIDE RECORDS SUMMARY | 2025-01-13 19:37 | XMS_ITS | Encounter Summary ---
Author Organization [facility] Address [address] [place] [address] Care Team Providers Care Laborer Operator Name Role Phone Cuba Solano MD Primary Care Provider +1 [phone] Encounter Details Date Type Department Care Team (Latest Contact Info) Description 12/26/2004 Outpatient Historical [facility] Family Medicine Angelica [facility] [address] [address] Huey Upton Jr., MD [address] [place] [address] 248 [facility] 140 [place] [address] IMPETIGO (Primary Dx) Social History Tobacco Use Types Packs/Day Years Used Date Smoking Tobacco: Never Assessed Sex and Gender Information Value Date Recorded Sex Assigned at Not on file Legal Sex Male 2: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
--- OUTSIDE RECORDS SUMMARY | 2025-01-13 19:37 | XMS_ITS | Encounter Summary ---
Author Organization [facility] Address [address] [place] [address] Care Team Providers Care Residential Mortgage Manager Name Role Phone Cuba Solano MD Primary Care Provider [phone] [phone] Encounter Details Date Type Department Care Team (Latest Contact Info) Description 05/13/2004 Outpatient [facility] Family Medicine Angelica [address] [address] Donte Borrego MD NO ADDRESS ON FILE DIABETES MELLITUS TYPE II UNCONTR UNCOMPL (Primary Dx); Benign hypertension; Dermatitis due to plant Social History Tobacco Use Types Packs/Day Years Used Date Smoking Tobacco: Never Assessed Sex and Gender Information Value Date Recorded Sex Assigned at Not on file Legal Sex Male 2:49 AM 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 Gender Identity Not on file Sexual Orientation Not on file documented as of this encounter Plan of Treatment Not on file documented as of this encounter Visit Diagnoses Diagnosis Type II or unspecified type diabetes mellitus 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, uncontrolled- Primary Benign hypertension Essential hypertension, benign Dermatitis due to plant Contact dermatitis and other eczema due to plants (except food) documented in this encounter Care Teams Residential Mortgage Manager Relationship Specialty Start Date End Date Cuba Solano MD PCP - General 07/11/09 documented as of this encounter
--- OUTSIDE RECORDS SUMMARY | 2025-01-13 19:37 | XMS_ITS | Encounter Summary ---
Author Organization [facility] Address [address] [place] [address] Care Team Providers Care Inside Sales Supervisor Name Role Phone Cuba Solano MD Primary Care Provider +1 [phone] Encounter Details Date Type Department Care Team (Latest Contact Info) Description 01/18/2006 [facility] 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
--- OUTSIDE RECORDS SUMMARY | 2025-01-13 19:37 | XMS_ITS | Encounter Summary ---
Author Organization [facility] Address [address] [place] [address] Care Team Providers Care Dukey Rider Name Role Phone Cuba Solano MD Primary Care Provider +1 [phone] Encounter Details Date Type Department Care Team (Latest Contact Info) Description 05/25/2006 Outpatient Historical [facility] Orthopedics- [address] [place] [address] Ash Lopez III, MD [address] [place] [address] Pain in Joint, Shoulder Region (Primary Dx) Social History Tobacco Use Types Packs/Day Years Used Date Smoking Tobacco: Never Assessed Sex and Gender Information Value Date Recorded Sex Assigned at Not on file Legal Sex Male 2:49 AM FORESTRY TREE PRUNER Gender Identity Not on file Sexual Orientation Not on file documented as of this encounter Plan of Treatment Not on file documented as of this encounter Visit Diagnoses Diagnosis Pain in joint, shoulder region- Primary documented in this encounter Care Teams Dukey Rider Relationship Specialty Start Date End Date Cuba Solano MD PCP - General 07/11/09 documented as of this encounter
--- OUTSIDE RECORDS SUMMARY | 2025-01-13 19:37 | XMS_ITS | Encounter Summary ---
Author Organization [facility] Address [address] [place] [address] Care Team Providers Care Combining Machine Operator Name Role Phone Cuba Solano MD Primary Care Provider +1 [phone] Encounter Details Date Type Department Care Team (Late st Contact Info) Description 09/11/2004 Outpatient Historical [facility] Imaging Services [facility] [place] [address] [place] [address] Social History Tobacco Use Types Packs/Day Years Used Date Smoking Tobacco: Never Assessed Sex and Gender Information Value Date Recorded Sex Assigned at Not on file Legal Sex Male 2:49 AM RECEIVING OPERATOR Gender Identity Not on file Sexual Orientation Not on file documented as of this encounter Plan of Treatment Not on file documented as of this encounter Visit Diagnoses Not on filedocumented in this encounter Care Teams Combining Machine Operator Relationship Specialty Start Date End Date Cuba Solano MD PCP - General 07/11/09 documented as of this encounter
--- OUTSIDE RECORDS SUMMARY | 2025-01-13 19:37 | XMS_ITS | Encounter Summary ---
Author Organization [facility] Address [address] [place] [address] Care Team Providers Care Mirror Maker Name Role Phone Cuba Solano MD Primary Care Provider +1 -[phone] Encounter Details Date Type Department Care Team (Latest Contact Info) Description 04/05/2006 [facility] [address] [place] [address] Huey Upton Jr., MD [address] [place] [address] [address] [place] [address] DM w/o Complication Type II (CMS/HCC) (Primary Dx) Social History Tobacco Use Types Packs/Day Years Used Date Smoking Tobacco: Never Assessed Sex and Gender Information Value Date Recorded Sex Assigned at Not on file Legal Sex Male 2:49 AM BRIDGE PAINTER HELPER Gender Identity Not on file Sexual Orientation Not on file documented as of this encounter Plan of Treatment Not on file documented as of this encounter Visit Diagnoses Diagnosis Type II or unspecified type diabetes mellitus 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, not stated as uncontrolled- Primary documented in this encounter Care Teams Mirror Maker Relationship Specialty Start Date End Date Cuba Solano MD PCP - General 07/11/09 documented as of this encounter
--- OUTSIDE RECORDS SUMMARY | 2025-01-13 19:37 | XMS_ITS | Encounter Summary ---
Author Organization [facility] Address [address] [place] [address] Care Team Providers Care Manager Photo Name Role Phone Cuba Solano MD Primary Care Provider +1 -[phone] Encounter Details Date Type Department Care Team (Latest Contact Info) Description 11/12/2004 Outpatient Historical [facility] Orthopedics- [address] [place] [address] Ash Lopez III, MD [address] [place] [address] JOINT PAIN-L/LEG (Primary Dx); LOC PRIM OSTEOART-L/LEG Social History Tobacco Use Types Packs/Day Years Used Date Smoking Tobacco: Never Assessed Sex and Gender Information Value Date Recorded Sex Assigned at Not on file Legal Sex Male 2:49 AM INSURANCE PROCESSOR Gender Identity Not on file Sexual Orientation Not on file documented as of this encounter Plan of Treatment Not on file documented as of this encounter Visit Diagnoses Diagnosis Pain in joint, lower leg- Primary Primary localized osteoarthrosis, lower leg documented in this encounter Care Teams Manager Photo Relationship Specialty Start Date End Date Cuba Solano MD PCP - General 07/11/09 documented as of this encounter
--- OUTSIDE RECORDS SUMMARY | 2025-01-13 19:37 | XMS_ITS | Encounter Summary ---
Author Organization [facility] Address [address] [place] [address] Care Team Providers Care Production Control Coordinating Clerk Name Role Phone Cuba Solano MD Primary Care Provider +1 [phone] Encounter Details Date Type Department Care Team (Latest Contact Info) Description 04/23/2006 Outpatient Historical [facility] Orthopedics- 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
--- OUTSIDE RECORDS SUMMARY | 2025-01-13 19:37 | XMS_ITS | Encounter Summary ---
Author Organization [facility] Address [address] [place] [address] Care Team Providers Care Senior Grant Writer Name Role Phone Cuba Solano MD Primary Care Provider +1 -[phone] Encounter Details Date Type Department Care Team (Latest Contact Info) Description 09/11/2004 Outpatient Historical [facility] Imaging Services [facility] [place] [address] Huey Upton Jr., MD [address] [place] [address] 248 [facility] 140 [place] [address] CHONDROMALACIA PATELLAE (Primary Dx) Social History Tobacco Use Types Packs/Day Years Used Date Smoking Tobacco: Never Assessed Sex and Gender Information Value Date Recorded Sex Assigned at Not on file Legal Sex Male 2:49 AM PULL UP HAND Gender Identity Not on file Sexual Orientation Not on file documented as of this encounter Plan of Treatment Not on file documented as of this encounter Visit Diagnoses Diagnosis Chondromalacia of patella- Primary documented in this encounter Care Teams Senior Grant Writer Relationship Specialty Start Date End Date Cuba Solano MD PCP - General 07/11/09 documented as of this encounter
--- OUTSIDE RECORDS SUMMARY | 2025-01-13 19:37 | XMS_ITS | Encounter Summary ---
Author Organization [facility] Address [address] [place] [address] Care Team Providers Care Clinical Laboratory Aides Teacher Name Role Phone Cuba Solano MD Primary Care Provider +1 [phone] Encounter Details Date Type Department Care Team (Latest Contact Info) Description 06/06/2004 Outpatient Historical [facility] [address] [place] [address] [place] [address] Frances Davies, COMPOUNDING ASSISTANT [address] [place] [address] HYPERSOMNI W SLEEP APNEA (Primary Dx) Social History Tobacco Use Types Packs/Day Years Used Date Smoking Tobacco: Never Assessed Sex and Gender Information Value Date Recorded Sex Assigned at Not on file Legal Sex Male 2:49 AM TRANSITIONAL STUDIES INSTRUCTOR Gender Identity Not on file Sexual Orientation Not on file documented as of this encounter Plan of Treatment Not on file documented as of this encounter Visit Diagnoses Diagnosis Hypersomnia with sleep apnea, unspecified- Primary documented in this encounter Care Teams Clinical Laboratory Aides Teacher Relationship Specialty Start Date End Date Cuba Solano MD PCP - General 07/11/09 documented as of this encounter
--- OUTSIDE RECORDS SUMMARY | 2025-01-13 19:37 | XMS_ITS | Encounter Summary ---
Author Organization [facility] Address [address] [place] [address] Care Team Providers Care Family Practice Nurse Practitioner Name Role Phone Cuba Solano MD Primary Care Provider +1 [phone] Encounter Details Date Type Department Care Team (Latest Contact Info) Description 09/03/2004 Outpatient Historical [facility] Family Medicine Angelica [facility] [address] [address] Huey Upton Jr., MD [address] [place] [address] 248 [facility] 140 [place] [address] DIABETES MELLITUS TYPE II-UNCOMPL (CMS/HCC) (Primary Dx); JOINT PAIN-L/LEG Social History Tobacco Use Types Packs/Day Years Used Date Smoking Tobacco: Never Assessed Sex and Gender Information Value Date Recorded Sex Assigned at Not on file Legal Sex Male 2:49 AM PROCESS DESIGN ENGINEER Gender Identity Not on file Sexual Orientation Not on file documented as of this encounter Plan of Treatment Not on file documented as of this encounter Visit Diagnoses Diagnosis Type II or unspecified type diabetes mellitus 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, not stated as uncontrolled- Primary Pain in joint, lower leg documented in this encounter Care Teams Family Practice Nurse Practitioner Relationship Specialty Start Date End Date Cuba Solano MD PCP - General 07/11/09 documented as of this encounter
--- OUTSIDE RECORDS SUMMARY | 2025-01-13 19:37 | XMS_ITS | Encounter Summary ---
Author Organization [facility] Address [address] [place] [address] Care Team Providers Care Minister Name Role Phone Cuba Solano MD Primary Care Provider +1 [phone] Encounter Details Date Type Department Care Team (Late st Contact Info) Description 12/02/2004 Outpatient Historical [facility] Family Medicine Angelica [place] [id number] [address] Social History Tobacco Use Types Packs/Day Years Used Date Smoking Tobacco: Never Assessed Sex and Gender Information Value Date Recorded Sex Assigned at Not on file Legal Sex Male 2:49 AM BILL DISTRIBUTOR Gender Identity Not on file Sexual Orientation Not on file documented as of this encounter Plan of Treatment Not on file documented as of this encounter Visit Diagnoses Not on filedocumented in this encounter Care Teams Minister Relationship Specialty Start Date End Date Cuba Solano MD PCP - General 07/11/09 documented as of this encounter
--- OUTSIDE RECORDS SUMMARY | 2025-01-13 19:37 | XMS_ITS | Encounter Summary ---
Author Organization [facility] Address [address] [place] [address] Care Team Providers Care Inspector Handbag Frames Name Role Phone Cuba Solano MD Primary Care Provider +1 [phone] Encounter Details Date Type Department Care Team (Latest Contact Info) Description 06/11/2004 Outpatient Historical [facility] Family Medicine Angelica [facility] [address] [address] Huey Upton Jr., MD [address] [place] [address] 248 [facility] 140 [place] [address] DIABETES MELLITUS TYPE II-UNCOMPL (CMS/HCC) (Primary Dx); JOINT PAIN-L/LEG Social History Tobacco Use Types Packs/Day Years Used Date Smoking Tobacco: Never Assessed Sex and Gender Information Value Date Recorded Sex Assigned at Not on file Legal Sex Male 2:49 AM IS TECHNICIAN Gender Identity Not on file Sexual Orientation Not on file documented as of this encounter Plan of Treatment Not on file documented as of this encounter Visit Diagnoses Diagnosis Type II or unspecified type diabetes mellitus 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, not stated as uncontrolled- Primary Pain in joint, lower leg documented in this encounter Care Teams Inspector Handbag Frames Relationship Specialty Start Date End Date Cuba Solano MD PCP - General 07/11/09 documented as of this encounter
--- OUTSIDE RECORDS SUMMARY | 2025-01-13 19:37 | XMS_ITS | Encounter Summary ---
Author Organization [facility] Address [address] [place] [address] Care Team Providers Care Mortgage Loan Officer Name Role Phone Cuba Solano MD Primary Care Provider +1 [phone] Encounter Details Date Type Department Care Team (Latest Contact Info) Description 06/17/2006 Outpatient [facility] Family Medicine Angelica [place] [address] [address] Keyona Mccloud, LUCIEN NO ADDRESS ON FILE Unspecified Otitis Media (Primary Dx); Unspecified Tachycardia; Palpitations Social History Tobacco Use Types Packs/Day Years Used Date Smoking Tobacco: Never Assessed Sex and Gender Information Value Date Recorded Sex Assigned at Not on file Legal Sex Male 2:49 AM HOST Gender Identity Not on file Sexual Orientation Not on file documented as of this encounter Plan of Treatment Not on file documented as of this encounter Visit Diagnoses Diagnosis Unspecified otitis media- Primary Tachycardia, unspecified Palpitations documented in this encounter Care Teams Mortgage Loan Officer Relationship Specialty Start Date End Date Cuba Solano MD PCP - General 07/11/09 documented as of this encounter
--- OUTSIDE RECORDS SUMMARY | 2025-01-13 19:37 | XMS_ITS | Encounter Summary ---
Author Organization [facility] Address [address] [place] [address] Care Team Providers Care Concrete Pile Driver Operator Name Role Phone Cuba Solano MD Primary Care Provider +1 [phone] Encounter Details Date Type Department Care Team (Late st Contact Info) Description 03/04/2005 Outpatient Historical [facility] Family Medicine Angelica [place] [id number] [address] Social History Tobacco Use Types Packs/Day Years Used Date Smoking Tobacco: Never Assessed Sex and Gender Information Value Date Recorded Sex Assigned at Not on file Legal Sex Male 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
--- OUTSIDE RECORDS SUMMARY | 2025-01-13 19:37 | XMS_ITS | Encounter Summary ---
Author Organization [facility] Address [address] [place] [address] Care Team Providers Care Senior Caregiver Name Role Phone Cuba Solano MD Primary Care Provider +1 [phone] Encounter Details Date Type Department Care Team (Latest Contact Info) Description 06/18/2006 Outpatient Historical [facility] Cardiovascular Services [address] [place] [address] [place] [address] Keyona Mccloud, LUCIEN NO ADDRESS ON FILE Supraventricular Premature Beats (Primary Dx) Social History Tobacco Use Types Packs/Day Years Used Date Smoking Tobacco: Never Assessed Sex and Gender Information Value Date Recorded Sex Assigned at Not on file Legal 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
--- OUTSIDE RECORDS SUMMARY | 2025-01-13 19:37 | XMS_ITS | Encounter Summary ---
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
--- OUTSIDE RECORDS SUMMARY | 2025-01-13 19:37 | XMS_ITS | Encounter Summary ---
Author Organization [facility] Address [address] [place] [address] Care Team Providers Care Insulation Power Unit Tender Name Role Phone Cuba Solano MD Primary Care Provider +1 [phone] Encounter Details Date Type Department Care Team (Latest Contact Info) Description 01/12/2006 Outpatient Historical [facility] Orthopedics- [address] [place] [address] [place] [address] Ash Lopez III, MD [address] 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
--- OUTSIDE RECORDS SUMMARY | 2025-01-13 19:37 | XMS_ITS | Encounter Summary ---
Author Organization [facility] Address [address] [place] [address] Care Team Providers Care Grinding Wheel Facer Name Role Phone Cuba Solano MD Primary Care Provider +1 -[phone] Encounter Details Date Type Department Care Team (Latest Contact Info) Description 05/04/[address] 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
--- OUTSIDE RECORDS SUMMARY | 2025-01-13 19:37 | XMS_ITS | Encounter Summary ---
Author Organization [facility] Address [address] [place] [address] Care Team Providers Care Nailing Machine Operator Automatic Name Role Phone Cuba Solano MD Primary Care Provider +1 [phone] Encounter Details Date Type Department Care Team (Latest Contact Info) Description 11/26/2004 Outpatient Historical [facility] Orthopedics- [address] [place] 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
--- OUTSIDE RECORDS SUMMARY | 2025-01-13 19:37 | XMS_ITS | Encounter Summary ---
Author Organization [facility] Address [address] [place] [address] Care Team Providers Care Glaciologist Name Role Phone Cuba Solano MD Primary Care Provider +1 [phone] Encounter Details Date Type Department Care Team (Latest Contact Info) Description 12/10/2004 Outpatient Historical [facility] Orthopedics- [address] [place] 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
--- OUTSIDE RECORDS SUMMARY | 2025-01-13 19:37 | XMS_ITS | Encounter Summary ---
Author Organization [facility] Address [address] [place] [address] Care Team Providers Care Mobility Architect Name Role Phone Cuba Solano MD Primary Care Provider +1 [phone] Encounter Details Date Type Department Care Team (Latest Contact Info) Description 11/25/2005 Outpatient Historical [facility] Orthopedics- [address] [place] 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
--- OUTSIDE RECORDS SUMMARY | 2025-01-13 19:37 | XMS_ITS | Encounter Summary ---
Author Organization [facility] Address [address] [place] [address] Care Team Providers Care Senior Publications Specialist Name Role Phone Cuba Solano MD Primary Care Provider +1 [phone] Encounter Details Date Type Department Care Team (Latest Contact Info) Description 06/28/2006 Outpatient Historical [facility] Family Medicine Angelica [place] [address] [address] Keyona Mccloud, LUCIEN NO ADDRESS ON FILE Unspecified Otitis Media (Primary Dx); Acute Sinusitis, Unspecified Social History Tobacco Use Types Packs/Day Years Used Date Smoking Tobacco: Never Assessed Sex and Gender Information Value Date Recorded Sex Assigned at Not on file Legal Sex Male 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
--- OUTSIDE RECORDS SUMMARY | 2025-01-13 19:37 | XMS_ITS | Encounter Summary ---
Author Organization [facility] Address [address] [place] [address] Care Team Providers Care Materials Manager Name Role Phone Cuba Solano MD Primary Care Provider +1 -[phone] Encounter Details Date Type Department Care Team (Latest Contact Info) Description 11/21/2004 Outpatient Historical [facility] Family Medicine Angelica [place] [address] [address] Keyona Mccloud, LUCIEN NO ADDRESS ON FILE Pain in limb (Primary Dx) Social History Tobacco Use Types Packs/Day Years Used Date Smoking Tobacco: Never Assessed Sex and Gender Information Value Date Recorded Sex Assigned at Not on file Legal Sex Male 2: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
--- OUTSIDE RECORDS SUMMARY | 2025-01-13 19:37 | XMS_ITS | Encounter Summary ---
Author Organization [facility] Address [address] [place] [address] Care Team Providers Care Telecommunications Cable Jointer Name Role Phone Cuba Solano MD Primary Care Provider +1 [phone] Encounter Details Date Type Department Care Team (Latest Contact Info) Description 07/18/2004 Outpatient Historical [facility] Family Medicine Angelica [place] [address] [address] Keyona Mccloud, LUCIEN NO ADDRESS ON FILE ORAL APHTHAE (Primary Dx); DYSPHAGIA Social History Tobacco Use Types Packs/Day Years Used Date Smoking Tobacco: Never Assessed Sex and Gender Information Value Date Recorded Sex Assigned at Not on file Legal 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
--- OUTSIDE RECORDS SUMMARY | 2025-01-13 19:37 | XMS_ITS | Encounter Summary ---
Author Organization [facility] Address [address] [place] [address] Care Team Providers Care Hall Coordinator Name Role Phone Cuba Solano MD Primary Care Provider +1 -[phone] Encounter Details Date Type Department Care Team (Latest Contact Info) Description 12/02/2005 Outpatient Historical [facility] Family Medicine Angelica [facility] [address] [address] Huey Upton Jr., MD [address] [place] [address] 248 [facility] 140 [place] [address] DM w/o Complication Type II (CMS/HCC) (Primary Dx); Other and Unspecified Hyperlipidemia; Unspecified Essential Hypertension; Pain in Joint, Shoulder Region Social History Tobacco Use Types Packs/Day Years Used Date Smoking Tobacco: Never Assessed Sex and Gender Information Value Date Recorded Sex Assigned at Not on file Legal Sex Male 2:49 AM DIRECTOR OF RESERVATIONS Gender Identity Not on file Sexual Orientation Not on file documented as of this encounter Plan of Treatment Not on file documented as of this encounter Visit Diagnoses Diagnosis Type II or unspecified type diabetes mellitus 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, not stated as uncontrolled- Primary Other and unspecified hyperlipidemia Unspecified essential hypertension Pain in joint, shoulder region documented in this encounter Care Teams Hall Coordinator Relationship Specialty Start Date End Date Cuba Solano MD PCP - General 07/11/09 documented as of this encounter
--- OUTSIDE RECORDS SUMMARY | 2025-01-13 19:37 | XMS_ITS | Encounter Summary ---
Author Organization [facility] Address [address] [place] [address] Care Team Providers Care Chief Design Engineer Name Role Phone Cuba Solano MD Primary Care Provider +1 -[phone] Encounter Details Date Type Department Care Team (Late st Contact Info) Description 11/05/2005 Outpatient Historical [facility] Family Medicine Angelica [place] [address] [address] Social History Tobacco Use Types Packs/Day Years Used Date Smoking Tobacco: Never Assessed Sex and Gender Information Value Date Recorded Sex Assigned at Not on file Legal Sex Male 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
--- OUTSIDE RECORDS SUMMARY | 2025-01-13 19:37 | XMS_ITS | Encounter Summary ---
Author Organization [facility] Address [address] [place] [address] Care Team Providers Care Forensic Locksmith Name Role Phone Cuba Solano MD Primary Care Provider +1 [phone] Encounter Details Date Type Department Care Team (Latest Contact Info) Description 12/29/2005 Outpatient Historical [facility] [address] [facility] [address] [place] [address] Ash Lopez III, MD [address] [place] [address] Other Affections of Shoulder Region, not Elsewhere Classified (Primary Dx) Social History Tobacco Use Types Packs/Day Years Used Date Smoking Tobacco: Never Assessed Sex and Gender Information Value Date Recorded Sex Assigned at Not on file Legal Sex Male 2: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 Gender Identity Not on file Sexual Orientation Not on file documented as of this encounter Plan of Treatment Not on file documented as of this encounter Procedures Procedure Name Priority Date/Time Associated Diagnosis Comments POC GLUCOSE Routine 12/29/2005 9:45 AM CDT POC SODIUM, POTASSIUM, AND H&H Routine 12/29/2005 7:28 AM CDT POC GLUCOSE Routine 12/29/2005 7:05 AM CDT documented in this encounter Results * (ABNORMAL) POC GLUCOSE (12/29/2005 9:45 AM CDT) GLUCOSE POC 196(H) 60 - 100 mg/dL INTERFACE SYSTEM 12/29/2005 9:45 AM CDT Result [facility] Ash Lopez III, MD POINT OF CARE TESTING Final Result Performing Organization Address [facility] Phone Number INTERFACE SYSTEM Refer to clinic/hospital department * (ABNORMAL) POC ISTAT 3 (12/29/2005 7:28 AM CDT) SODIUM POC 141 136 - 145 mEq/L INTERFACE SYSTEM POTASSIUM POC 3.7 3.5 - 5.0 mEq/L INTERFACE SYSTEM HEMATOCRIT POC 38.0(L) 41.0 - 53.0 % INTERFACE SYSTEM HEMOGLOBIN POC 13.0(L) 14.0 - 18.0 g/dL INTERFACE SYSTEM 12/29/2005 7:28 AM CDT Ash Lopez III, MD POINT OF CARE TESTING Final Result Performing Organization Address [facility] Phone Number INTERFACE SYSTEM Refer to clinic/hospital department * (ABNORMAL) POC GLUCOSE (12/29/2005 7:05 AM CDT) GLUCOSE POC 133(H) 60 - 100 mg/dL INTERFACE SYSTEM 12/29/2005 7:05 AM CDT Ash Lopez III, MD POINT OF CARE TESTING Final Result Performing Organization Address [facility] Phone Number INTERFACE SYSTEM Refer to clinic/hospital department documented in this encounter Visit Diagnoses Diagnosis Other affections of shoulder region, not elsewhere classified- Primary documented in this encounter Care Teams Forensic Locksmith Relationship Specialty Start Date End Date Cuba Solano MD PCP - General 07/11/09 documented as of this encounter
--- OUTSIDE RECORDS SUMMARY | 2025-01-13 19:37 | XMS_ITS | Encounter Summary ---
Author Organization [facility] Address [address] [place] [address] Care Team Providers Care Brass Wind Instruments Tube Bender Name Role Phone Cuba Solano MD Primary Care Provider +1 [phone] Encounter Details Date Type Department Care Team (Latest Contact Info) Description 10/21/2005 Outpatient Historical [facility] 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
--- OUTSIDE RECORDS SUMMARY | 2025-01-13 19:37 | XMS_ITS | Encounter Summary ---
Author Organization [facility] Address [address] [place] [address] Care Team Providers Care Tank Car Reconditioner Name Role Phone Cuba Solano MD Primary Care Provider +1 [phone] Encounter Details Date Type Department Care Team (Latest Contact Info) Description 05/27/2006 Outpatient Historical [facility] Family Medicine [place] [address] [address] Keyona Mccloud, LUCIEN NO ADDRESS ON FILE Other B-Complex Deficiencies (Primary Dx) Social History Tobacco Use Types Packs/Day Years Used Date Smoking Tobacco: Never Assessed Sex and Gender Information Value Date Recorded Sex Assigned at Not on file Legal 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
--- OUTSIDE RECORDS SUMMARY | 2025-01-13 19:37 | XMS_ITS | Encounter Summary ---
Author Organization [facility] Address [address] [place] [address] Care Team Providers Care Qlikview Developer Name Role Phone Cuba Solano MD Primary Care Provider +1 [phone] Encounter Details Date Type Department Care Team (Latest Contact Info) Description 06/09/2006 Outpatient Historical [facility] Orthoped[facility]- [address] [place] 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
--- OUTSIDE RECORDS SUMMARY | 2025-01-13 19:37 | XMS_ITS | Encounter Summary ---
Author Organization [facility] Address [address] [place] [address] Care Team Providers Care Visualizer Name Role Phone Cuba Solano MD Primary Care Provider +1 [phone] Encounter Details Date Type Department Care Team (Late st Contact Info) Description 07/22/2004 Outpatient Historical [facility] Family Medicine [place] [id number] [address] Social History Tobacco Use Types Packs/Day Years Used Date Smoking Tobacco: Never Assessed Sex and Gender Information Value Date Recorded Sex Assigned at Not on file Legal Sex Male 2:49 AM COMPLAINT 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
--- OUTSIDE RECORDS SUMMARY | 2025-01-13 19:37 | XMS_ITS | Encounter Summary ---
Author Organization [facility] Address [address] [place] [address] Care Team Providers Care Container Packer Operator Name Role Phone Cuba Solano MD Primary Care Provider +1 [phone] Encounter Details Date Type Department Care Team (Latest Contact Info) Description 07/27/2006 Outpatient Historical [facility] Orthopedics- [address] [place] 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
--- OUTSIDE RECORDS SUMMARY | 2025-01-13 19:37 | XMS_ITS | Encounter Summary ---
Author Organization [facility] Address [address] [place] [address] Care Team Providers Care Medical Writer Name Role Phone Cuba Solano MD Primary Care Provider +1 [phone] Encounter Details Date Type Department Care Team (Late st Contact Info) Description 02/02/2006 Outpatient Historical [facility] Family Medicine [place] [id number] [address] Social History Tobacco Use Types Packs/Day Years Used Date Smoking Tobacco: Never Assessed Sex and Gender Information Value Date Recorded Sex Assigned at Not on file Legal 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
--- OUTSIDE RECORDS SUMMARY | 2025-01-13 19:38 | XMS_ITS | Encounter Summary ---
Author Organization [facility] Address [address] [place] [address] Care Team Providers Care Airport Maintenance Laborer Name Role Phone Cuba Solano MD Primary Care Provider +1 [phone] Encounter Details Date Type Department Care Team (Latest Contact Info) Description 04/13/2002 Outpatient Historical [facility] Family Medicine [place] [address] [address] Donte Borrego MD NO ADDRESS ON FILE ACUTE URI NOS (Primary Dx) Social History Tobacco Use Types Packs/Day Years Used Date Smoking Tobacco: Never Assessed Sex and Gender Information Value Date Recorded Sex Assigned at Not on file Legal 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
--- OUTSIDE RECORDS SUMMARY | 2025-01-13 19:38 | XMS_ITS | Encounter Summary ---
Author Organization [facility] Address [address] [place] [address] Care Team Providers Care Global Category Manager Name Role Phone Cuba Solano MD Primary Care Provider +1 [phone] Encounter Details Date Type Department Care Team (Latest Contact Info) Description 11/22/2000 Outpatient Historical [facility] Family Medicine [place] [address] [address] Donte Borrego MD NO ADDRESS ON FILE Other and unspecified hyperlipidemia (Primary Dx); Encounter for long-term (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 of other medications Social History Tobacco Use Types Packs/Day Years Used Date Smoking Tobacco: Never Assessed Sex and Gender Information Value Date Recorded Sex Assigned at Not on file Legal 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
--- OUTSIDE RECORDS SUMMARY | 2025-01-13 19:38 | XMS_ITS | Encounter Summary ---
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
--- OUTSIDE RECORDS SUMMARY | 2025-01-13 19:38 | XMS_ITS | Encounter Summary ---
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
--- OUTSIDE RECORDS SUMMARY | 2025-01-13 19:38 | XMS_ITS | Encounter Summary ---
Author Organization [facility] Address [address] [place] [address] Care Team Providers Care Printed Circuit Boards Contact Printer Name Role Phone Cuba Solano MD Primary Care Provider +1 -[phone] Encounter Details Date Type Department Care Team (Latest Contact Info) Description 11/14/2001 Outpatient [facility] Family Medicine [place] [address] [address] Keyona Mccloud, LUCIEN NO ADDRESS ON FILE HORDEOLUM EXTERNUM (Primary Dx); ACUTE URI NOS Social History Tobacco Use Types Packs/Day Years Used Date Smoking Tobacco: Never Assessed Sex and Gender Information Value Date Recorded Sex Assigned at Not on file 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
--- OUTSIDE RECORDS SUMMARY | 2025-01-13 19:38 | XMS_ITS | Encounter Summary ---
Author Organization [facility] Address [address] [place] [address] Care Team Providers Care External Grinder Name Role Phone Cuba Solano MD Primary Care Provider +1 -[phone] Encounter Details Date Type Department Care Team (Latest Contact Info) Description 04/07/2000 Outpatient Historical [facility] Family Medicine [place] [address] [address] Donte Borrego MD NO ADDRESS ON FILE Unspecified essential hypertension (Primary Dx); Unspecified suppurative otitis media; Nasal/sinus dis NEC Social History Tobacco Use Types Packs/Day Years Used Date Smoking Tobacco: Never Assessed Sex and Gender Information Value Date Recorded Sex Assigned at Not on file Legal 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
--- OUTSIDE RECORDS SUMMARY | 2025-01-13 19:38 | XMS_ITS | Encounter Summary ---
Author Organization [facility] Address [address] [place] [address] Care Team Providers Care Threat Monitoring Analyst Name Role Phone Cuba Solano MD Primary Care Provider +1 -[phone] Encounter Details Date Type Department Care Team (Latest Contact Info) Description 04/10/2002 Outpatient Historical [facility] Family Medicine [place] [address] [address] Donte Borrego MD NO ADDRESS ON FILE HYPERLIPIDEMIA NEC/NOS (Primary Dx) Social History Tobacco Use Types Packs/Day Years Used Date Smoking Tobacco: Never Assessed Sex and Gender Information Value Date Recorded Sex Assigned at Not on file Legal 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
--- OUTSIDE RECORDS SUMMARY | 2025-01-13 19:38 | XMS_ITS | Encounter Summary ---
Author Organization [facility] Address [address] [place] [address] Care Team Providers Care Environmental Marketing Representative Name Role Phone Cuba Solano MD Primary Care Provider +1 -[phone] Encounter Details Date Type Department Care Team (Latest Contact Info) Description 05/30/2001 Outpatient Historical [facility] Family Medicine [place] [address] [address] Donte Borrego MD NO ADDRESS ON FILE HYPERTENSION NOS (Primary Dx); ACUTE SINUSITIS NOS; KERATODERMA, ACQUIRED; HYPERLIPIDEMIA NEC/NOS Social History Tobacco Use Types Packs/Day Years Used Date Smoking Tobacco: Never Assessed Sex and Gender Information Value Date Recorded Sex Assigned at Not on file Legal 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
--- OUTSIDE RECORDS SUMMARY | 2025-01-13 19:38 | XMS_ITS | Encounter Summary ---
Author Organization [facility] Address [address] [facility] Attn: [place] [address] Care Team Providers Care Reconcilement Clerk Name Role Phone Cuba Solano MD Primary Care Provider +1 -[phone] Encounter Details Date Type Department Care Team (Late st Contact Info) Description 04/08/2001 Outpatient Historical Donte Borrego MD NO ADDRESS ON FILE Social History Tobacco Use Types Packs/Day Years Used Date Smoking Tobacco: Never Assessed Sex and Gender Information Value Date Recorded Sex Assigned at Not on file Legal Sex Male 2:49 AM AUDITOR APPRAISER Gender Identity Not on file Sexual Orientation Not on file documented as of this encounter Plan of Treatment Not on file documented as of this encounter Visit Diagnoses Not on filedocumented in this encounter Care Teams Reconcilement Clerk Relationship Specialty Start Date End Date Cuba Solano MD PCP - General 07/11/09 documented as of this encounter
--- OUTSIDE RECORDS SUMMARY | 2025-01-13 19:38 | XMS_ITS | Encounter Summary ---
Author Organization [facility] Address [address] [place] [address] Care Team Providers Care Supervisor Audit Clerks Name Role Phone Cuba Solano MD Primary Care Provider +1 -[phone] Encounter Details Date Type Department Care Team (Latest Contact Info) Description 02/01/2002 Outpatient Historical [facility] Family Medicine [place] [address] [address] Donte Borrego MD NO ADDRESS ON FILE HYPERTENSION NOS (Primary Dx); LIPOMA NOS; DISEASES OF LIPS Social History Tobacco Use Types Packs/Day Years Used Date Smoking Tobacco: Never Assessed Sex and Gender Information Value Date Recorded Sex Assigned at Not on file Legal 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
--- OUTSIDE RECORDS SUMMARY | 2025-01-13 19:38 | XMS_ITS | Encounter Summary ---
Author Organization [facility] Address [address] [place] [address] Care Team Providers Care Senior Project Architect Name Role Phone Cuba Solano MD Primary Care Provider +1 [phone] Encounter Details Date Type Department Care Team (Latest Contact Info) Description 05/11/2001 Outpatient Historical [facility] Family Medicine [place] [address] [address] Donte Borrego MD NO ADDRESS ON FILE ACUTE SINUSITIS NOS (Primary Dx); CONJUNCTIVAL HEMORRHAGE; HYPERTENSION NOS Social History Tobacco Use Types Packs/Day Years Used Date Smoking Tobacco: Never Assessed Sex and Gender Information Value Date Recorded Sex Assigned at Not on file Legal 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
--- OUTSIDE RECORDS SUMMARY | 2025-01-13 19:38 | XMS_ITS | Encounter Summary ---
Author Organization [facility] Address [address] [place] [address] Care Team Providers Care Cupola Repairer Name Role Phone Cuba Solano MD Primary Care Provider +1 -[phone] Encounter Details Date Type Department Care Team (Latest Contact Info) Description 11/07/2001 Outpatient [facility] Family Medicine [place] [id number] [address] Keyona Mccloud, LUCIEN NO ADDRESS ON FILE HORDEOLUM EXTERNUM (Primary Dx); ALLERGY, UNSPECIFIED Social History Tobacco Use Types Packs/Day Years Used Date Smoking Tobacco: Never Assessed Sex and Gender Information Value Date Recorded Sex Assigned at Not on file Legal Sex Male 2: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
--- OUTSIDE RECORDS SUMMARY | 2025-01-13 19:38 | XMS_ITS | Encounter Summary ---
Author Organization [employer] Address [address] [place] [address] Care Team Providers Care Intake Nurse Name Role Phone Cuba Solano MD Primary Care Provider +1 [phone] Encounter Details Date Type Department Care Team (Latest Contact Info) Description 09/06/2000 Outpatient Historical [facility] [place] [address] [place] [address] Other convulsions (Primary Dx) Social History Tobacco Use Types Packs/Day Years Used Date Smoking Tobacco: Never Assessed Sex and Gender Information Value Date Recorded Sex Assigned at Not on file Legal 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
--- OUTSIDE RECORDS SUMMARY | 2025-01-13 19:38 | XMS_ITS | Encounter Summary ---
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
--- OUTSIDE RECORDS SUMMARY | 2025-01-13 19:38 | XMS_ITS | Encounter Summary ---
Author Organization [facility] Address [address] [place] [address] Care Team Providers Care Hydraulic Elevator Constructor Name Role Phone Cuba Solano MD Primary Care Provider +1 [phone] Encounter Details Date Type Department Care Team (Latest Contact Info) Description 07/11/2001 Outpatient Historical [facility] Family Medicine [place] 6[address] [address] Donte Borrego MD NO ADDRESS ON FILE Benign hypertension (Primary Dx); OSTEOARTHROS NOS-UNSPEC Social History Tobacco Use Types Packs/Day Years Used Date Smoking Tobacco: Never Assessed Sex and Gender Information Value Date Recorded Sex Assigned at Not on file Legal Sex Male 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
--- OUTSIDE RECORDS SUMMARY | 2025-01-13 19:38 | XMS_ITS | Encounter Summary ---
Author Organization [facility] Address [address] [place] [address] Care Team Providers Care Clinical Asst Name Role Phone Cuba Solano MD Primary Care Provider +1 [phone] Encounter Details Date Type Department Care Team (Latest Contact Info) Description 10/03/2001 Outpatient Historical [facility] Family Medicine [place] [address] [address] Donte Borrego MD NO ADDRESS ON FILE HYPERTENSION NOS (Primary Dx); ALLERGY, UNSPECIFIED; AMPUT ABOVE KNEE, UNILAT; OSTEOARTHROS NOS-UNSPEC Social History Tobacco Use Types Packs/Day Years Used Date Smoking Tobacco: Never Assessed Sex and Gender Information Value Date Recorded Sex Assigned at Not on file Legal Sex Male 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 COUNSELOR Gender Identity Not on file Sexual Orientation Not on file documented as of this encounter Plan of Treatment Not on file documented as of this encounter Visit Diagnoses Diagnosis Unspecified essential hypertension- Primary Allergy, unspecified not elsewhere classified Traumatic amputation of leg(s) (complete) (partial), unilateral, at or above knee, 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 Osteoarthrosis, unspecified whether generalized or localized, unspecified site documented in this encounter Care Teams Clinical Asst Relationship Specialty Start Date End Date Cuba Solano MD PCP - General 07/11/09 documented as of this encounter
--- OUTSIDE RECORDS SUMMARY | 2025-01-13 19:38 | XMS_ITS | Encounter Summary ---
Author Organization [facility] Address [address] [place] [address] Care Team Providers Care Junior Loan Processor Name Role Phone Cuba Solano MD Primary Care Provider +1 [phone] Encounter Details Date Type Department Care Team (Latest Contact Info) Description 04/04/2003 Outpatient Historical [facility] Family Medicine [place] 8[address] [address] Keyona Mccloud, LUCIEN NO ADDRESS ON FILE OTHER MALAISE AND FATIGUE (Primary Dx) Social History Tobacco Use Types Packs/Day Years Used Date Smoking Tobacco: Never Assessed Sex and Gender Information Value Date Recorded Sex Assigned at Not on file Legal Sex Male 2: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
--- OUTSIDE RECORDS SUMMARY | 2025-01-13 19:38 | XMS_ITS | Encounter Summary ---
Author Organization 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
--- OUTSIDE RECORDS SUMMARY | 2025-01-13 19:38 | XMS_ITS | Encounter Summary ---
Author Organization [facility] Address [address] [place] [address] Care Team Providers Care Pad Tufter Name Role Phone Cuba Solano MD Primary Care Provider +1 [phone] Encounter Details Date Type Department Care Team (Latest Contact Info) Description 05/17/2003 Outpatient Historical [facility] Family Medicine [place] 7[address] [address] Keyona Mccloud, LUCIEN NO ADDRESS ON FILE HYPERLIPIDEMIA NEC/NOS (Primary Dx); VITAMIN B DEFICIENCY NOS; AFTERCARE FPC USE MEDICATN Social History Tobacco Use Types Packs/Day Years Used Date Smoking Tobacco: Never Assessed Sex and Gender Information Value Date Recorded Sex Assigned at Not on file 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
--- OUTSIDE RECORDS SUMMARY | 2025-01-13 19:38 | XMS_ITS | Encounter Summary ---
Author Organization [facility] Address [address] [place] [address] Care Team Providers Care Eyeglass Lens Cutter Name Role Phone Cuba Solano MD Primary Care Provider +1 [phone] Encounter Details Date Type Department Care Team (Latest Contact Info) Description 02/09/2000 Outpatient Historical [facility] Family Medicine [place] 9[address] [address] Donte Borrego MD NO ADDRESS ON FILE Unspecified suppurative otitis media (Primary Dx); Acute upper respiratory infections of unspecified site Social History Tobacco Use Types Packs/Day Years Used Date Smoking Tobacco: Never Assessed Sex and Gender Information Value Date Recorded Sex Assigned at Not on file Legal Sex Male 2:49 AM DOULA Gender Identity Not on file Sexual Orientation Not on file documented as of this encounter Plan of Treatment Not on file documented as of this encounter Visit Diagnoses Diagnosis Unspecified suppurative otitis media- Primary Acute upper respiratory infections of unspecified site documented in this encounter Care Teams Eyeglass Lens Cutter Relationship Specialty Start Date End Date Cuba Solano MD PCP - General 07/11/09 documented as of this encounter
--- OUTSIDE RECORDS SUMMARY | 2025-01-13 19:38 | XMS_ITS | Encounter Summary ---
Author Organization [facility] Address [address] [place] [address] Care Team Providers Care Investment Director Name Role Phone Cuba Solano MD Primary Care Provider +1 [phone] Encounter Details Date Type Department Care Team (Latest Contact Info) Description 07/02/2003 Outpatient Historical [facility] Family Medicine [place] [address]222 [address] [address] Keyona Mccloud, TASTE TESTER NO ADDRESS ON FILE ALLERGY, UNSPECIFIED (Primary Dx) Social History Tobacco Use Types Packs/Day Years Used Date Smoking Tobacco: Never Assessed Sex and Gender Information Value Date Recorded Sex Assigned at Not on file 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
--- OUTSIDE RECORDS SUMMARY | 2025-01-13 19:38 | XMS_ITS | Encounter Summary ---
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
--- OUTSIDE RECORDS SUMMARY | 2025-01-13 19:38 | XMS_ITS | Encounter Summary ---
Author Organization [facility] Address [address] [place] [address] Care Team Providers Care Reports Analyst Name Role Phone Cuba Solano MD Primary Care Provider +1 [phone] Encounter Details Date Type Department Care Team (Latest Contact Info) Description 05/04/2003 Outpatient Historical [facility] Family Medicine [place] [address] [address] Keyona Mccloud, LUCIEN NO ADDRESS ON FILE ACUTE URI NOS (Primary Dx); PERNICIOUS ANEMIA Social History Tobacco Use Types Packs/Day Years Used Date Smoking Tobacco: Never Assessed Sex and Gender Information Value Date Recorded Sex Assigned at Not on file 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
--- OUTSIDE RECORDS SUMMARY | 2025-01-13 19:38 | XMS_ITS | Encounter Summary ---
Author Organization [facility] Address [address] [place] [address] Care Team Providers Care Combat Systems Operator Name Role Phone Cuba Solano MD Primary Care Provider +1 -[phone] Encounter Details Date Type Department Care Team (Late st Contact Info) Description 09/06/2000 Outpatient Historical [place] [address] [place] [address] Encounter for long-term (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 of other medications (Primary Dx); Other convulsions Social History Tobacco Use Types Packs/Day Years Used Date Smoking Tobacco: Never Assessed Sex and Gender Information Value Date Recorded Sex Assigned at Not on file 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
--- OUTSIDE RECORDS SUMMARY | 2025-01-13 19:38 | XMS_ITS | Encounter Summary ---
Author Organization [facility] Address [address] [place] [address] Care Team Providers Care Radiosonde Operator Name Role Phone Cuba Solano MD Primary Care Provider +1 -[phone] Encounter Details Date Type Department Care Team (Latest Contact Info) Description 04/07/2001 Outpatient Historical [facility] Family Medicine [place] [address] [address] Donte Borrgeo MD NO ADDRESS ON FILE HYPERTENSION NOS (Primary Dx); AFTERCARE RETIREMENT USE MEDICATN; ANEMIA NOS; VACCINE FOR INFLUENZA Social History Tobacco Use Types Packs/Day Years Used Date Smoking Tobacco: Never Assessed Sex and Gender Information Value Date Recorded Sex Assigned at Not on file Legal Sex Male 2:49 AM YOUTH ADVOCATE Gender Identity Not on file Sexual Orientation Not on file documented as of this encounter Plan of Treatment Not on file documented as of this encounter Visit Diagnoses Diagnosis Unspecified essential hypertension- Primary Encounter for long-term (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 of other medications Anemia, unspecified Need vaccination-viral disease Need for prophylactic vaccination and inoculation against other viral diseases documented in this encounter Care Teams Radiosonde Operator Relationship Specialty Start Date End Date Cuba Solano MD PCP - General 07/11/09 documented as of this encounter
--- OUTSIDE RECORDS SUMMARY | 2025-01-13 19:38 | XMS_ITS | Encounter Summary ---
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
--- OUTSIDE RECORDS SUMMARY | 2025-01-13 19:38 | XMS_ITS | Encounter Summary ---
Author Organization [facility] Address [address] [place] [address] Care Team Providers Care Terrazzo Laborer Name Role Phone Cuba Solano MD Primary Care Provider +1 [phone] Encounter Details Date Type Department Care Team (Latest Contact Info) Description 04/02/2004 Outpatient Historical [facility] Family Medicine [place] [address] [address] Donte Borrego MD NO ADDRESS ON FILE DIABETES MELLITUS TYPE II UNCONTR UNCOMPL (Primary Dx); GOUT NOS Social History Tobacco Use Types Packs/Day Years Used Date Smoking Tobacco: Never Assessed Sex and Gender Information Value Date Recorded Sex Assigned at Not on file Legal 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
--- OUTSIDE RECORDS SUMMARY | 2025-01-13 19:38 | XMS_ITS | Encounter Summary ---
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
--- OUTSIDE RECORDS SUMMARY | 2025-01-13 19:38 | XMS_ITS | Encounter Summary ---
Author Organization [facility] Address [address] [place] [address] Care Team Providers Care Label Pinker Name Role Phone Cuba Solano MD Primary Care Provider +1 -[phone] Encounter Details Date Type Department Care Team (Latest Contact Info) Description 09/15/2000 Outpatient Historical [facility] Family Medicine [place] [id number] [address] Donte Borrego MD NO ADDRESS ON FILE Unspecified essential hypertension (Primary Dx); Type II or unspecified type diabetes mellitus 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, not stated as uncontrolled Social History Tobacco Use Types Packs/Day Years Used Date Smoking Tobacco: Never Assessed Sex and Gender Information Value Date Recorded Sex Assigned at Not on file 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
--- OUTSIDE RECORDS SUMMARY | 2025-01-13 19:38 | XMS_ITS | Encounter Summary ---
Author Organization [facility] Address [address] [place] [address] Care Team Providers Care City Constable Name Role Phone Cuba Solano MD Primary Care Provider +1 -[phone] Encounter Details Date Type Department Care Team (Latest Contact Info) Description 04/10/2002 Outpatient [facility] Family Medicine [place] [address] [address] Donte Borrego MD NO ADDRESS ON FILE B-COMPLEX DEFIC NEC (Primary Dx); OTHER MALAISE AND FATIGUE; HYPERLIPIDEMIA NEC/NOS Social History Tobacco Use Types Packs/Day Years Used Date Smoking Tobacco: Never Assessed Sex and Gender Information Value Date Recorded Sex Assigned at Not on file Legal 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
--- OUTSIDE RECORDS SUMMARY | 2025-01-13 19:38 | XMS_ITS | Encounter Summary ---
Author Organization [facility] Address [address] [place] [address] Care Team Providers Care Epic Cupid Analyst Name Role Phone Cuba Solano MD Primary Care Provider +1 [phone] Encounter Details Date Type Department Care Team (Latest Contact Info) Description 08/29/2001 Outpatient Historical [facility] Family Medicine [place] [id number] [address] Donte Borrego MD NO ADDRESS ON FILE Benign hypertension (Primary Dx); TACHYCARDIA NOS Social History Tobacco Use Types Packs/Day Years Used Date Smoking Tobacco: Never Assessed Sex and Gender Information Value Date Recorded Sex Assigned at Not on file 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
--- OUTSIDE RECORDS SUMMARY | 2025-01-13 19:38 | XMS_ITS | Encounter Summary ---
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
--- OUTSIDE RECORDS SUMMARY | 2025-01-13 19:38 | XMS_ITS | Encounter Summary ---
Author Organization [facility] Address [address] [place] [address] Care Team Providers Care Neurology Nurse Name Role Phone Cuba Solano MD Primary Care Provider +1 [phone] Encounter Details Date Type Department Care Team (Latest Contact Info) Description 09/14/2001 Outpatient Historical [facility] Family Medicine [place] [address] [address] Donte Borrego MD NO ADDRESS ON FILE UNSPECIFIED VIRAL INFECTION (Primary Dx); ALLERGY, UNSPECIFIED; HYPERTENSION NOS; TACHYCARDIA NOS Social History Tobacco Use Types Packs/Day Years Used Date Smoking Tobacco: Never Assessed Sex and Gender Information Value Date Recorded Sex Assigned at Not on file Legal 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
--- OUTSIDE RECORDS SUMMARY | 2025-01-13 19:38 | XMS_ITS | Encounter Summary ---
Author Organization [facility] Address [address] [place] [address] Care Team Providers Care International Sales Representative Name Role Phone Cuba Solano MD Primary Care Provider +1 [phone] Encounter Details Date Type Department Care Team (Latest Contact Info) Description 07/07/2000 Outpatient Historical [facility] Family Medicine [place] [address] [address] Donte Borrego MD NO ADDRESS ON FILE Unspecified essential hypertension (Primary Dx); Obesity, unspecified; Allergy, unspecified not elsewhere classified; Actinic keratosis Social History Tobacco Use Types Packs/Day Years Used Date Smoking Tobacco: Never Assessed Sex and Gender Information Value Date Recorded Sex Assigned at Not on file 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
--- OUTSIDE RECORDS SUMMARY | 2025-01-13 19:38 | XMS_ITS | Encounter Summary ---
Author Organization [facility] Address [address] [place] [address] Care Team Providers Care Warehouse Operations Associate Name Role Phone Cuba Solano MD Primary Care Provider +1 [phone] Encounter Details Date Type Department Care Team (Latest Contact Info) Description 08/22/2001 Outpatient Historical [facility] Family Medicine [place] [id number] [address] Donte Borrego MD NO ADDRESS ON FILE HYPERTENSION NOS (Primary Dx); TACHYCARDIA NOS Social History Tobacco Use Types Packs/Day Years Used Date Smoking Tobacco: Never Assessed Sex and Gender Information Value Date Recorded Sex Assigned at Not on file Legal Sex Male 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
--- OUTSIDE RECORDS SUMMARY | 2025-01-13 19:38 | XMS_ITS | Encounter Summary ---
Author Organization [facility] Address [address] [place] [address] Care Team Providers Care Cement Paver Name Role Phone Cuba Solano MD Primary Care Provider +1 [phone] Encounter Details Date Type Department Care Team (Latest Contact Info) Description 01/04/2002 Outpatient [facility] Family Medicine [place] [address] [address] Donte Borrego MD NO ADDRESS ON FILE ACUTE PHARYNGITIS (Primary Dx); ALLERGIC RHINITIS NEC Social History Tobacco Use Types Packs/Day Years Used Date Smoking Tobacco: Never Assessed Sex and Gender Information Value Date Recorded Sex Assigned at Not on file 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
--- OUTSIDE RECORDS SUMMARY | 2025-01-13 19:38 | XMS_ITS | Encounter Summary ---
Author Organization [facility] Address [address] [place] [address] Care Team Providers Care Drop Wire Hanger Name Role Phone Cuba Solano MD Primary Care Provider +1 [phone] Encounter Details Date Type Department Care Team (Latest Contact Info) Description 01/07/2001 Outpatient Historical [facility] Family Medicine [place] [facility] [address] [address] Zara Royal, DO [address] [place] [address] Unspecified essential hypertension (Primary Dx); Other and unspecified hyperlipidemia; Allergy, unspecified not elsewhere classified; Traumatic amputation of leg(s) (complete) (partial), unilateral, at or above knee, 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 Social History Tobacco Use Types Packs/Day Years Used Date Smoking Tobacco: Never Assessed Sex and Gender Information Value Date Recorded Sex Assigned at Not on file Legal 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
--- OUTSIDE RECORDS SUMMARY | 2025-01-13 19:38 | XMS_ITS | Encounter Summary ---
Author Organization [facility] Address [address] [place] [address] Care Team Providers Care Him Assistant Name Role Phone Cuba Solano MD Primary Care Provider +1 [phone] Encounter Details Date Type Department Care Team (Latest Contact Info) Description 03/03/2002 Outpatient [facility] Family Medicine [place] [address] [address] Donte Borrego MD NO ADDRESS ON FILE OTHER MALAISE AND FATIGUE (Primary Dx); B-COMPLEX DEFIC NEC Social History Tobacco Use Types Packs/Day Years Used Date Smoking Tobacco: Never Assessed Sex and Gender Information Value Date Recorded Sex Assigned at Not on file Legal Sex Male 2:49 AM SAMPLE TESTER Gender Identity Not on file Sexual Orientation Not on file documented as of this encounter Plan of Treatment Not on file documented as of this encounter Visit Diagnoses Diagnosis Other malaise and fatigue- Primary Other B-complex deficiencies documented in this encounter Care Teams Him Assistant Relationship Specialty Start Date End Date Cuba Solano MD PCP - General 07/11/09 documented as of this encounter
--- OUTSIDE RECORDS SUMMARY | 2025-01-13 19:38 | XMS_ITS | Encounter Summary ---
Author Organization [facility] Address [address] [place] [address] Care Team Providers Care Full Charge Bookkeeper Name Role Phone Cuba Solano MD Primary Care Provider +1 [phone] Encounter Details Date Type Department Care Team (Latest Contact Info) Description 01/18/2002 Outpatient Historical [facility] Family Medicine [place] [address] [address] Donte Borrego MD NO ADDRESS ON FILE DISEASES OF LIPS (Primary Dx); ALLERGY, UNSPECIFIED Social History Tobacco Use Types Packs/Day Years Used Date Smoking Tobacco: Never Assessed Sex and Gender Information Value Date Recorded Sex Assigned at Not on file Legal Sex Male 2:[address] COMMISSIONER Gender Identity Not on file Sexual Orientation Not on file documented as of this encounter Plan of Treatment Not on file documented as of this encounter Visit Diagnoses Diagnosis Diseases of lips- Primary Allergy, unspecified not elsewhere classified documented in this encounter Care Teams Full Charge Bookkeeper Relationship Specialty Start Date End Date Cuba Solano MD PCP - General 07/11/09 documented as of this encounter
--- OUTSIDE RECORDS SUMMARY | 2025-01-13 19:38 | XMS_ITS | Encounter Summary ---
Author Organization [facility] Address [address] [place] [address] Care Team Providers Care Receiver Dispatcher Name Role Phone Cuba Solano MD Primary Care Provider +1 [phone] Encounter Details Date Type Department Care Team (Latest Contact Info) Description 10/04/2000 Outpatient Historical [facility] Family Medicine [place] [address] [address] Donte Borrego MD NO ADDRESS ON FILE Other and unspecified hyperlipidemia (Primary Dx); Unspecified essential hypertension; Allergy, unspecified not elsewhere classified; Actinic keratosis Social History Tobacco Use Types Packs/Day Years Used Date Smoking Tobacco: Never Assessed Sex and Gender Information Value Date Recorded Sex Assigned at Not on file Legal Sex Male 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
--- OUTSIDE RECORDS SUMMARY | 2025-01-13 19:38 | XMS_ITS | Encounter Summary ---
Author Organization [facility] Address [address] [place] [address] Care Team Providers Care Camera Storage Clerk Name Role Phone Cuba Solano MD Primary Care Provider +1 -[phone] Encounter Details Date Type Department Care Team (Latest Contact Info) Description 07/17/2003 Outpatient Historical [facility] Family Medicine [place] [address] [address] Donte Borrego MD NO ADDRESS ON FILE DERMATITIS NOS (Primary Dx); ALLERGY, UNSPECIFIED Social History Tobacco Use Types Packs/Day Years Used Date Smoking Tobacco: Never Assessed Sex and Gender Information Value Date Recorded Sex Assigned at Not on file Legal Sex Male 2:49 AM PHLEBOTOMY SUPPORT TECH Gender Identity Not on file Sexual Orientation Not on file documented as of this encounter Plan of Treatment Not on file documented as of this encounter Visit Diagnoses Diagnosis Contact dermatitis and other eczema, due to unspecified cause- Primary Allergy, unspecified not elsewhere classified documented in this encounter Care Teams Camera Storage Clerk Relationship Specialty Start Date End Date Cuba Solano MD PCP - General 07/11/09 documented as of this encounter
--- OUTSIDE RECORDS SUMMARY | 2025-01-13 19:38 | XMS_ITS | Encounter Summary ---
Author Organization [facility] Address [address] [place] [address] Care Team Providers Care Services Delivery Driver Name Role Phone Cuba Solano MD Primary Care Provider +1 -[phone] Encounter Details Date Type Department Care Team (Latest Contact Info) Description 05/17/2003 Outpatient Historical [facility] Family Medicine [place] [address] [address] Keyona Mccloud, LUCIEN NO ADDRESS ON FILE AFTERCARE ANVIL WORKER USE MEDICATN (Primary Dx) Social History Tobacco Use Types Packs/Day Years Used Date Smoking Tobacco: Never Assessed Sex and Gender Information Value Date Recorded Sex Assigned at Not on file Legal 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
--- OUTSIDE RECORDS SUMMARY | 2025-01-13 19:38 | XMS_ITS | Encounter Summary ---
Author Organization [facility] Address [address] [place] [address] Care Team Providers Care Pecan Grower Name Role Phone Cuba Solano MD Primary Care Provider +1 [phone] Encounter Details Date Type Department Care Team (Late st Contact Info) Description 03/14/2004 Outpatient Historical [facility] [address] [place] [address] Social History Tobacco Use Types Packs/Day Years Used Date Smoking Tobacco: Never Assessed Sex and Gender Information Value Date Recorded Sex Assigned at Not on file Legal Sex Male 2:49 AM FLOWER GROWER Gender Identity Not on file Sexual Orientation Not on file documented as of this encounter Plan of Treatment Not on file documented as of this encounter Visit Diagnoses Not on filedocumented in this encounter Care Teams Pecan Grower Relationship Specialty Start Date End Date Cuba Solano MD PCP - General 07/11/09 documented as of this encounter
--- OUTSIDE RECORDS SUMMARY | 2025-01-13 19:38 | XMS_ITS | Encounter Summary ---
Author Organization [facility] Address [address] [place] [address] Care Team Providers Care Business Process Modeler Name Role Phone Cuba Solano MD Primary Care Provider +1 -[phone] Encounter Details Date Type Department Care Team (Late st Contact Info) Description 03/30/2004 Outpatient Historical [facility] [address] [place] [address] Social History Tobacco Use Types Packs/Day Years Used Date Smoking Tobacco: Never Assessed Sex and Gender Information Value Date Recorded Sex Assigned at Not on file Legal Sex Male 2:49 AM EVP SALES Gender Identity Not on file Sexual Orientation Not on file documented as of this encounter Plan of Treatment Not on file documented as of this encounter Visit Diagnoses Not on filedocumented in this encounter Care Teams Business Process Modeler Relationship Specialty Start Date End Date Cuba Solano MD PCP - General 07/11/09 documented as of this encounter
--- OUTSIDE RECORDS SUMMARY | 2025-01-13 19:38 | XMS_ITS | Encounter Summary ---
Author Organization [facility] Address [address] [place] [address] Care Team Providers Care Branch Or Department Chief Librarian Name Role Phone Cuba Solano MD Primary Care Provider +1 -[phone] Encounter Details Date Type Department Care Team (Latest Contact Info) Description 11/18/2001 Outpatient Historical [facility] Family Medicine [place] [address] [address] Donte Borrego MD NO ADDRESS ON FILE CONJUNCTIVITIS NOS (Primary Dx) Social History Tobacco Use Types Packs/Day Years Used Date Smoking Tobacco: Never Assessed Sex and Gender Information Value Date Recorded Sex Assigned at Not on file Legal Sex Male 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
--- OUTSIDE RECORDS SUMMARY | 2025-01-13 19:38 | XMS_ITS | Encounter Summary ---
Author Organization [facility] Address [address] [place] [address] Care Team Providers Care Surgical Training Specialist Name Role Phone Cuba Solano MD Primary Care Provider +1 [phone] Encounter Details Date Type Department Care Team (Latest Contact Info) Description 05/04/2002 Outpatient Historical [facility] Family Medicine [place] [address] [address] Donte Borrego MD NO ADDRESS ON FILE OTALGIA NOS (Primary Dx) Social History Tobacco Use Types Packs/Day Years Used Date Smoking Tobacco: Never Assessed Sex and Gender Information Value Date Recorded Sex Assigned at Not on file Legal Sex Male 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
--- OUTSIDE RECORDS SUMMARY | 2025-01-13 19:38 | XMS_ITS | Encounter Summary ---
Author Organization [facility] Address [address] [place] [address] Care Team Providers Care Access Clerk Name Role Phone Cuba Solano MD Primary Care Provider +1 [phone] Encounter Details Date Type Department Care Team (Latest Contact Info) Description 11/01/2001 Outpatient Historical [facility] Family Medicine [place] [address] [address] Donte Borrego MD NO ADDRESS ON FILE ACUTE SINUSITIS NOS (Primary Dx); ALLERGIC RHINITIS NEC; Benign hypertension Social History Tobacco Use Types Packs/Day Years Used Date Smoking Tobacco: Never Assessed Sex and Gender Information Value Date Recorded Sex Assigned at Not on file Legal Sex Male 2: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
--- OUTSIDE RECORDS SUMMARY | 2025-01-13 19:38 | XMS_ITS | Encounter Summary ---
Author Organization [facility] Address [address] [place] [address] Care Team Providers Care Bow String Maker Name Role Phone Cuba Solano MD Primary Care Provider +1 -[phone] Encounter Details Date Type Department Care Team (Latest Contact Info) Description 03/30/2004 Outpatient Historical [facility] [address] [place] [place] [address] Kvng Kilpatrick MD NO ADDRESS ON FILE HYPERSOMNI W SLEEP APNEA (Primary Dx) Social History Tobacco Use Types Packs/Day Years Used Date Smoking Tobacco: Never Assessed Sex and Gender Information Value Date Recorded Sex Assigned at Not on file Legal Sex Male 2:49 AM LINING IRONER Gender Identity Not on file Sexual Orientation Not on file documented as of this encounter Plan of Treatment Not on file documented as of this encounter Visit Diagnoses Diagnosis Hypersomnia with sleep apnea, unspecified- Primary documented in this encounter Care Teams Bow String Maker Relationship Specialty Start Date End Date Cuba Solano MD PCP - General 07/11/09 documented as of this encounter
--- OUTSIDE RECORDS SUMMARY | 2025-01-13 19:38 | XMS_ITS | Encounter Summary ---
Author Organization [facility] Address [address] [place] [address] Care Team Providers Care Fireworks Inspector Name Role Phone Cuba Solano MD Primary Care Provider +1 [phone] Encounter Details Date Type Department Care Team (Latest Contact Info) Description 01/25/2002 Outpatient Historical [facility] Family Medicine [place] [id number] [address] Donte Borrego MD NO ADDRESS ON FILE OTHER MALAISE AND FATIGUE (Primary Dx) Social History Tobacco Use Types Packs/Day Years Used Date Smoking Tobacco: Never Assessed Sex and Gender Information Value Date Recorded Sex Assigned at Not on file Legal Sex Male 2:49 AM DIRECTOR OF PROGRAMMING Gender Identity Not on file Sexual Orientation Not on file documented as of this encounter Plan of Treatment Not on file documented as of this encounter Visit Diagnoses Diagnosis Other malaise and fatigue- Primary documented in this encounter Care Teams Fireworks Inspector Relationship Specialty Start Date End Date Cuba Solano MD PCP - General 07/11/09 documented as of this encounter
--- OUTSIDE RECORDS SUMMARY | 2025-01-13 19:38 | XMS_ITS | Encounter Summary ---
Author Organization [facility] Address [address] [place] [address] Care Team Providers Care Relief Man Name Role Phone Cuba Solano MD Primary Care Provider +1 [phone] Encounter Details Date Type Department Care Team (Latest Contact Info) Description 07/04/2001 Outpatient Historical [facility] Family Medicine [place] [address] [address] Donte Borrego MD NO ADDRESS ON FILE HYPERTENSION NOS (Primary Dx); HYPERLIPIDEMIA NEC/NOS; AFTERCARE SENIOR CARE USE MEDICATN; VACCINE FOR STREP PNEUMONIAE Social History Tobacco Use Types Packs/Day Years Used Date Smoking Tobacco: Never Assessed Sex and Gender Information Value Date Recorded Sex Assigned at Not on file Legal Sex Male 2:49 AM DEICER REPAIRER PNEUMATIC Gender Identity Not on file Sexual Orientation Not on file documented as of this encounter Plan of Treatment Not on file documented as of this encounter Visit Diagnoses Diagnosis Unspecified essential hypertension- Primary Other and unspecified hyperlipidemia Encounter for long-term (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 of other medications Need for prophylactic vaccination against Streptococcus pneumoniae (pneumococcus) Need for prophylactic vaccination against streptococcus pneumoniae (pneumococcus) documented in this encounter Care Teams Relief Man Relationship Specialty Start Date End Date Cuba Solano MD PCP - General 07/11/09 documented as of this encounter
--- OUTSIDE RECORDS SUMMARY | 2025-01-13 19:38 | XMS_ITS | Encounter Summary ---
Author Organization [facility] Address [address] [place] [address] Care Team Providers Care Floor Mechanic Name Role Phone Cuba Solano MD Primary Care Provider +1 [phone] Encounter Details Date Type Department Care Team (Latest Contact Info) Description 11/30/2001 Outpatient Historical [facility] Family Medicine Angelica [address] [address] Donte Borrego MD NO ADDRESS ON FILE ACUTE CONJUNCTIVITIS NOS (Primary Dx); HERPES ZOSTER NOS Social History Tobacco Use Types Packs/Day Years Used Date Smoking Tobacco: Never Assessed Sex and Gender Information Value Date Recorded Sex Assigned at Not on file Legal Sex Male 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
--- OUTSIDE RECORDS SUMMARY | 2025-01-13 19:38 | XMS_ITS | Encounter Summary ---
Author Organization [facility] Address [address] [place] [address] Care Team Providers Care Sewer Builder Name Role Phone Cuba Solano MD Primary Care Provider +1 [phone] Encounter Details Date Type Department Care Team (Latest Contact Info) Description 06/06/2003 Outpatient Historical [facility] Family Medicine [place] [address] [address] Keyona Mccloud, LUCIEN NO ADDRESS ON FILE ACUTE PHARYNGITIS (Primary Dx); ACUTE SINUSITIS NOS Social History Tobacco Use Types Packs/Day Years Used Date Smoking Tobacco: Never Assessed Sex and Gender Information Value Date Recorded Sex Assigned at Not on file Legal Sex Male 2:49 AM HOUSEKEEPING MANAGER Gender Identity Not on file Sexual Orientation Not on file documented as of this encounter Plan of Treatment Not on file documented as of this encounter Visit Diagnoses Diagnosis Acute pharyngitis- Primary Acute sinusitis, unspecified documented in this encounter Care Teams Sewer Builder Relationship Specialty Start Date End Date Cuba Solano MD PCP - General 07/11/09 documented as of this encounter
--- OUTSIDE RECORDS SUMMARY | 2025-01-13 19:39 | XMS_ITS | Encounter Summary ---
Author Organization [facility] Address [address] [place] [address] Care Team Providers Care Bicycle Messenger Name Role Phone Cuba Solano MD Primary Care Provider +1 [phone] Encounter Details Date Type Department Care Team (Latest Contact Info) Description 10/08/1998 Outpatient Historical [facility] Family Medicine [place] [address] [address] Donte Borrego MD NO ADDRESS ON FILE Esophageal reflux (Primary Dx); Unspecified essential hypertension; Unspecified disorder of liver Social History Tobacco Use Types Packs/Day Years Used Date Smoking Tobacco: Never Assessed Sex and Gender Information Value Date Recorded Sex Assigned at Not on file Legal Sex Male 2:49 AM BINGO CALLER Gender Identity Not on file Sexual Orientation Not on file documented as of this encounter Plan of Treatment Not on file documented as of this encounter Visit Diagnoses Diagnosis Esophageal reflux- Primary Unspecified essential hypertension Unspecified disorder of liver documented in this encounter Care Teams Bicycle Messenger Relationship Specialty Start Date End Date Cuba oSlano MD PCP - General 07/11/09 documented as of this encounter
--- OUTSIDE RECORDS SUMMARY | 2025-01-13 19:39 | XMS_ITS | Encounter Summary ---
Author Organization [facility] Address [address] [place] [address] Care Team Providers Care Qa Software Test Engineer Name Role Phone Cuba Solano MD Primary Care Provider +1 [phone] Encounter Details Date Type Department Care Team (Latest Contact Info) Description 09/11/2003 Outpatient [facility] Family Medicine [place] [address] [address] Keyona Mccloud, LUCIEN NO ADDRESS ON FILE ALLERGY, UNSPECIFIED (Primary Dx); DERMATITIS NOS; HYPERTENSION NOS; HYPERLIPIDEMIA NEC/NOS Social History Tobacco Use Types Packs/Day Years Used Date Smoking Tobacco: Never Assessed Sex and Gender Information Value Date Recorded Sex Assigned at Not on file Legal Sex Male 2:49 AM ASSISTANT BRANCH 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
--- OUTSIDE RECORDS SUMMARY | 2025-01-13 19:39 | XMS_ITS | Encounter Summary ---
Author Organization [facility] Address [address] [place] [address] Care Team Providers Care Traffic Monitor Specialist Name Role Phone Cuba Solano MD Primary Care Provider +1 [phone] Encounter Details Date Type Department Care Team (Latest Contact Info) Description 02/19/1998 Outpatient Historical [facility] [place] [address] [place] [address] Other convulsions (Primary Dx) Social History Tobacco Use Types Packs/Day Years Used Date Smoking Tobacco: Never Assessed Sex and Gender Information Value Date Recorded Sex Assigned at Not on file Legal Sex Male 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
--- OUTSIDE RECORDS SUMMARY | 2025-01-13 19:39 | XMS_ITS | Encounter Summary ---
Author Organization [facility] Address [address] [place] [address] Care Team Providers Care Ground Instructor Advanced Name Role Phone Cuba Solano MD Primary Care Provider +1 [phone] Encounter Details Date Type Department Care Team (Late st Contact Info) Description 07/07/1999 Outpatient Historical [facility] Family Medicine [place] [address] [address] Social History Tobacco Use Types Packs/Day Years Used Date Smoking Tobacco: Never Assessed Sex and Gender Information Value Date Recorded Sex Assigned at Not on file Legal Sex Male 2:49 AM CONTENT DEVELOPMENT MANAGER Gender Identity Not on file Sexual Orientation Not on file documented as of this encounter Plan of Treatment Not on file documented as of this encounter Visit Diagnoses Not on filedocumented in this encounter Care Teams Ground Instructor Advanced Relationship Specialty Start Date End Date Cuba Solano MD PCP - General 07/11/09 documented as of this encounter
--- OUTSIDE RECORDS SUMMARY | 2025-01-13 19:39 | XMS_ITS | Encounter Summary ---
Author Organization [facility] Address [address] [place] [address] Care Team Providers Care Document Specialist Name Role Phone Cuba Solano MD Primary Care Provider +1 [phone] Encounter Details Date Type Department Care Team (Latest Contact Info) Description 12/04/2003 Outpatient Historical [facility] Family Medicine [place] [address] [address] Donte Borrego MD NO ADDRESS ON FILE URIN TRACT INFECTION NOS (Primary Dx); ANEMIA NOS; UNSPEC CONSTIPATION Social History Tobacco Use Types Packs/Day Years Used Date Smoking Tobacco: Never Assessed Sex and Gender Information Value Date Recorded Sex Assigned at Not on file Legal Sex Male 2:49 AM PAYROLL REPRESENTATIVE Gender Identity Not on file Sexual Orientation Not on file documented as of this encounter Plan of Treatment Not on file documented as of this encounter Visit Diagnoses Diagnosis Urinary tract infection, site not specified- Primary Anemia, unspecified Unspecified constipation documented in this encounter Care Teams Document Specialist Relationship Specialty Start Date End Date Cuba Solano MD PCP - General 07/11/09 documented as of this encounter
--- OUTSIDE RECORDS SUMMARY | 2025-01-13 19:39 | XMS_ITS | Encounter Summary ---
Author Organization [facility] Address [address] [facility] Attn: [place] [address] Care Team Providers Care Soap Drier Tender Name Role Phone Cuba Solano MD Primary Care Provider +1 [phone] Encounter Details Date Type Department Care Team (Late st Contact Info) Description 01/08/2000 Outpatient Historical Donte Borrego MD NO ADDRESS ON FILE Social History Tobacco Use Types Packs/Day Years Used Date Smoking Tobacco: Never Assessed Sex and Gender Information Value Date Recorded Sex Assigned at Not on file Legal Sex Male 2:49 AM DIVISION HEAD Gender Identity Not on file Sexual Orientation Not on file documented as of this encounter Plan of Treatment Not on file documented as of this encounter Visit Diagnoses Not on filedocumented in this encounter Care Teams Soap Drier Tender Relationship Specialty Start Date End Date Cuba Solano MD PCP - General 07/11/09 documented as of this encounter
--- OUTSIDE RECORDS SUMMARY | 2025-01-13 19:39 | XMS_ITS | Encounter Summary ---
Author Organization [facility] Address [address] [place] [address] Care Team Providers Care Pan Shover Name Role Phone Cuba Solano MD Primary Care Provider +1 [phone] Encounter Details Date Type Department Care Team (Latest Contact Info) Description 10/12/2003 Outpatient Historical [facility] Family Medicine [place] [address] [address] Donte Borrego MD NO ADDRESS ON FILE GASTROINTEST HEMORR NOS (Primary Dx) Social History Tobacco Use Types Packs/Day Years Used Date Smoking Tobacco: Never Assessed Sex and Gender Information Value Date Recorded Sex Assigned at Not on file 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
--- OUTSIDE RECORDS SUMMARY | 2025-01-13 19:39 | XMS_ITS | Encounter Summary ---
Author Organization [facility] Address [address] [place] [address] Care Team Providers Care Pest Control Service Sales Agent Name Role Phone Cuba Solano MD Primary Care Provider +1 [phone] Encounter Details Date Type Department Care Team (Latest Contact Info) Description 04/08/1998 Outpatient Historical [facility] Family Medicine Angelica [address] [address] Donte Borrego MD NO ADDRESS ON FILE Generalized osteoarthrosis, unspecified site (Primary Dx); Nonspecific elevation of levels of transaminase or lactic acid dehydrogenase (LDH); Need vaccination-viral disease Social History Tobacco Use Types Packs/Day Years Used Date Smoking Tobacco: Never Assessed Sex and Gender Information Value Date Recorded Sex Assigned at Not on file 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 Gender Identity Not on file Sexual Orientation Not on file documented as of this encounter Plan of Treatment Not on file documented as of this encounter Visit Diagnoses Diagnosis Generalized osteoarthrosis, unspecified site- Primary Nonspecific elevation of levels of transaminase or lactic acid dehydrogenase (LDH) Need vaccination-viral disease Need for prophylactic vaccination and inoculation against other viral diseases documented in this encounter Care Teams Pest Control Service Sales Agent Relationship Specialty Start Date End Date Cuba Solano MD PCP - General 07/11/09 documented as of this encounter
--- OUTSIDE RECORDS SUMMARY | 2025-01-13 19:39 | XMS_ITS | Encounter Summary ---
Author Organization [facility] Address [address] [place] [address] Care Team Providers Care Fur Sorter Name Role Phone Cuba Solano MD Primary Care Provider [phone] [phone] Encounter Details Date Type Department Care Team (Latest Contact Info) Description 05/04/2002 Outpatient Historical [facility] Family Medicine [place] [address] [address] Donte Borrego MD NO ADDRESS ON FILE Benign hypertension (Primary Dx); OTALGIA NOS; INFEC OTITIS EXTERNA NOS Social History Tobacco Use Types Packs/Day Years Used Date Smoking Tobacco: Never Assessed Sex and Gender Information Value Date Recorded Sex Assigned at Not on file 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
--- OUTSIDE RECORDS SUMMARY | 2025-01-13 19:39 | XMS_ITS | Encounter Summary ---
Author Organization [facility] Address [address] [place] [address] Care Team Providers Care Hands And Dial Inspector Name Role Phone Cuba Solano MD Primary Care Provider +1 [phone] Encounter Details Date Type Department Care Team (Latest Contact Info) Description 05/30/2002 Outpatient Historical [facility] Family Medicine Angelica [address] [address] Donte Borrego MD NO ADDRESS ON FILE ANEMIA NOS (Primary Dx) Social History Tobacco Use Types Packs/Day Years Used Date Smoking Tobacco: Never Assessed Sex and Gender Information Value Date Recorded Sex Assigned at Not on file 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
--- OUTSIDE RECORDS SUMMARY | 2025-01-13 19:39 | XMS_ITS | Encounter Summary ---
Author Organization [facility] Address [address] [place] [address] Care Team Providers Care Flake Miller Wheat And Oats Name Role Phone Cuba Solano MD Primary Care Provider +1 [phone] Encounter Details Date Type Department Care Team (Latest Contact Info) Description 08/13/1998 Outpatient Historical [facility] Moi eGorge MD [address] [place] [address] Abdominal pain, unspecified site (Primary Dx); Blood in stool; Esophageal reflux Social History Tobacco Use Types Packs/Day Years Used Date Smoking Tobacco: Never Assessed Sex and Gender Information Value Date Recorded Sex Assigned at Not on file 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
--- OUTSIDE RECORDS SUMMARY | 2025-01-13 19:39 | XMS_ITS | Encounter Summary ---
Author Organization [facility] Address [address] [place] [address] Care Team Providers Care Quality Control Inspector Name Role Phone Cuba Solano MD Primary Care Provider +1 -[phone] Encounter Details Date Type Department Care Team (Latest Contact Info) Description 02/01/2003 Outpatient Historical [facility] Family Medicine Angelica [facility] [address] [address] Huey Upton Jr., MD [address] [place] [address] 248 [facility] [address] [place] [address] Benign hypertension (Primary Dx); ALLERGY, UNSPECIFIED Social History Tobacco Use Types Packs/Day Years Used Date Smoking Tobacco: Never Assessed Sex and Gender Information Value Date Recorded Sex Assigned at Not on file 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
--- OUTSIDE RECORDS SUMMARY | 2025-01-13 19:39 | XMS_ITS | Encounter Summary ---
Author Organization [facility] Address [address] [place] [address] Care Team Providers Care Bakery Sales Clerk Name Role Phone Cuba Solano MD Primary Care Provider +1 -[phone] Encounter Details Date Type Department Care Team (Latest Contact Info) Description 06/17/[address] 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
--- OUTSIDE RECORDS SUMMARY | 2025-01-13 19:39 | XMS_ITS | Encounter Summary ---
Author Organization [facility] Address [address] [place] [address] Care Team Providers Care Offset Plate Preparation Supervisor Name Role Phone Cuba Solano MD Primary Care Provider +1 -[phone] Encounter Details Date Type Department Care Team (Latest Contact Info) Description 08/03/2002 Outpatient Historical [facility] Family Medicine [place] [id number] [address] Donet Borrego MD NO ADDRESS ON FILE OTHER MALAISE AND FATIGUE (Primary Dx) Social History Tobacco Use Types Packs/Day Years Used Date Smoking Tobacco: Never Assessed Sex and Gender Information Value Date Recorded Sex Assigned at Not on file 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
--- OUTSIDE RECORDS SUMMARY | 2025-01-13 19:39 | XMS_ITS | Encounter Summary ---
Author Organization [facility] Address [address] [place] [address] Care Team Providers Care Director Of Distribution Name Role Phone Cuba Solano MD Primary Care Provider +1 -[phone] Encounter Details Date Type Department Care Team (Latest Contact Info) Description 09/04/2003 Outpatient Historical [facility] Family Medicine Angelica [facility] [address] [address] Huey Upton Jr., MD [address] [place] [address] 248 [facility] [address] [place] [address] OTHER MALAISE AND FATIGUE (Primary Dx) Social History Tobacco Use Types Packs/Day Years Used Date Smoking Tobacco: Never Assessed Sex and Gender Information Value Date Recorded Sex Assigned at Not on file Legal 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
--- OUTSIDE RECORDS SUMMARY | 2025-01-13 19:39 | XMS_ITS | Encounter Summary ---
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
--- OUTSIDE RECORDS SUMMARY | 2025-01-13 19:39 | XMS_ITS | Encounter Summary ---
Author Organization [facility] Address [address] [place] [address] Care Team Providers Care Commercial Lines Sales Executive Name Role Phone Cuba Solano MD Primary Care Provider +1 [phone] Encounter Details Date Type Department Care Team (Latest Contact Info) Description 09/01/2002 Outpatient Historical [facility] Family Medicine [place] [address] [address] Donte Borrego MD NO ADDRESS ON FILE ANEMIA NOS (Primary Dx) Social History Tobacco Use Types Packs/Day Years Used Date Smoking Tobacco: Never Assessed Sex and Gender Information Value Date Recorded Sex Assigned at Not on file 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
--- OUTSIDE RECORDS SUMMARY | 2025-01-13 19:39 | XMS_ITS | Encounter Summary ---
Author Organization [facility] Address [address] [place] [address] Care Team Providers Care Aviation Ordnance Officer Name Role Phone Cuba Solano MD Primary Care Provider +1 [phone] Encounter Details Date Type Department Care Team (Latest Contact Info) Description 02/19/1998 Outpatient Historical [facility] Moi George MD [address] [place] [address] Benign joe lg bowel (Primary Dx); Unspecified hemorrhoids 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 Social History Tobacco Use Types Packs/Day Years Used Date Smoking Tobacco: Never Assessed Sex and Gender Information Value Date Recorded Sex Assigned at Not on file Legal 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
--- OUTSIDE RECORDS SUMMARY | 2025-01-13 19:39 | XMS_ITS | Encounter Summary ---
Author Organization [facility] Address [address] [place] [address] Care Team Providers Care Retail Product Advisor Name Role Phone Cuba Solano MD Primary Care Provider +1 [phone] Encounter Details Date Type Department Care Team (Latest Contact Info) Description 01/05/2003 Outpatient Historical [facility] Cardiovascular Services [address] [place] [address] Non-Staff, Physician NO ADDRESS ON FILE PAIN IN LIMB (Primary Dx) Social History Tobacco Use Types Packs/Day Years Used Date Smoking Tobacco: Never Assessed Sex and Gender Information Value Date Recorded Sex Assigned at Not on file 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
--- OUTSIDE RECORDS SUMMARY | 2025-01-13 19:39 | XMS_ITS | Encounter Summary ---
Author Organization [facility] Address [address] [place] [address] Care Team Providers Care Optical Goods Worker Name Role Phone Cuba Solano MD Primary Care Provider +1 [phone] Encounter Details Date Type Department Care Team (Latest Contact Info) Description 07/08/1998 Outpatient Historical [facility] Family Medicine [place] [address] [address] Donte Borrego MD NO ADDRESS ON FILE Acute infection of pinna (Primary Dx); Acute perichondritis pinna; Malaise and fatigue; Other specified disorders of liver Social History Tobacco Use Types Packs/Day Years Used Date Smoking Tobacco: Never Assessed Sex and Gender Information Value Date Recorded Sex Assigned at Not on file 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
--- OUTSIDE RECORDS SUMMARY | 2025-01-13 19:39 | XMS_ITS | Encounter Summary ---
Author Organization [facility] Address [address] [place] [address] Care Team Providers Care Furnace Tender Name Role Phone Cuba Solano MD Primary Care Provider +1 [phone] Encounter Details Date Type Department Care Team (Latest Contact Info) Description 09/10/1999 Outpatient Historical 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
--- OUTSIDE RECORDS SUMMARY | 2025-01-13 19:39 | XMS_ITS | Encounter Summary ---
Author Organization [facility] Address [address] [place] [address] Care Team Providers Care Saddle Maker Name Role Phone Cuba Solano MD Primary Care Provider +1 [phone] Encounter Details Date Type Department Care Team (Latest Contact Info) Description 03/05/2004 Outpatient Historical [facility] Family Medicine [place] [id number] [address] Donte Borrego MD NO ADDRESS ON FILE DIABETES MELLITUS TYPE II UNCONTR UNCOMPL (Primary Dx); ACUTE URI NOS Social History Tobacco Use Types Packs/Day Years Used Date Smoking Tobacco: Never Assessed Sex and Gender Information Value Date Recorded Sex Assigned at Not on file Legal Sex Male 2:49 AM OFFICE REP Gender Identity Not on file Sexual Orientation Not on file documented as of this encounter Plan of Treatment Not on file documented as of this encounter Visit Diagnoses Diagnosis Type II or unspecified type diabetes mellitus 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, uncontrolled- Primary Acute upper respiratory infections of unspecified site documented in this encounter Care Teams Saddle Maker Relationship Specialty Start Date End Date Cuba Solano MD PCP - General 07/11/09 documented as of this encounter
--- OUTSIDE RECORDS SUMMARY | 2025-01-13 19:39 | XMS_ITS | Encounter Summary ---
Author Organization [facility] Address [address] [place] [address] Care Team Providers Care Fan Blade Aligner Name Role Phone Cuba Solano MD Primary Care Provider +1 [phone] Encounter Details Date Type Department Care Team (Latest Contact Info) Description 07/11/1999 Outpatient Historical [facility] Family Medicine [place] [address] [address] Donte Borrego MD NO ADDRESS ON FILE Unspecified essential hypertension (Primary Dx); Other convulsions; Allergy, unspecified not elsewhere classified Social History Tobacco Use Types Packs/Day Years Used Date Smoking Tobacco: Never Assessed Sex and Gender Information Value Date Recorded Sex Assigned at Not on file 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
--- OUTSIDE RECORDS SUMMARY | 2025-01-13 19:39 | XMS_ITS | Encounter Summary ---
Author Organization [facility] Address [address] [place] [address] Care Team Providers Care Manager Assessment Name Role Phone Cuba Solano MD Primary Care Provider +1 [phone] Encounter Details Date Type Department Care Team (Latest Contact Info) Description 02/25/2004 Outpatient Historical [facility] Family Medicine [place] [id number] [address] Keyona Mccloud FNP NO ADDRESS ON FILE DIABETES MELLITUS TYPE II-UNCOMPL (CMS/HCC) (Primary Dx); ACUTE URI NOS Social History Tobacco Use Types Packs/Day Years Used Date Smoking Tobacco: Never Assessed Sex and Gender Information Value Date Recorded Sex Assigned at Not on file 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
--- OUTSIDE RECORDS SUMMARY | 2025-01-13 19:39 | XMS_ITS | Encounter Summary ---
Author Organization [facility] Address [address] [place] [address] Care Team Providers Care Director Of Extension Work Name Role Phone Cuba Solano MD Primary Care Provider +1 [phone] Encounter Details Date Type Department Care Team (Latest Contact Info) Description 12/03/1998 Outpatient Historical [facility] Family Medicine [place] [address] [address] Donte Borrego MD NO ADDRESS ON FILE Other and unspecified hyperlipidemia (Primary Dx); Acute conjunctivitis, unspecified; Unspecified essential hypertension; Allergy, unspecified not elsewhere classified Social History Tobacco Use Types Packs/Day Years Used Date Smoking Tobacco: Never Assessed Sex and Gender Information Value Date Recorded Sex Assigned at Not on file Legal 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
--- OUTSIDE RECORDS SUMMARY | 2025-01-13 19:39 | XMS_ITS | Encounter Summary ---
Author Organization [facility] Address [address] [place] [address] Care Team Providers Care Dietary Worker Name Role Phone Cuba Solano MD Primary Care Provider +1 [phone] Encounter Details Date Type Department Care Team (Latest Contact Info) Description 10/02/2002 Outpatient Historical [facility] Family Medicine [place] [address] [address] Donte Borrego MD NO ADDRESS ON FILE ANEMIA NOS (Primary Dx) Social History Tobacco Use Types Packs/Day Years Used Date Smoking Tobacco: Never Assessed Sex and Gender Information Value Date Recorded Sex Assigned at Not on file Legal Sex Male 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
--- OUTSIDE RECORDS SUMMARY | 2025-01-13 19:39 | XMS_ITS | Encounter Summary ---
Author Organization [facility] Address [address] [place] [address] Care Team Providers Care Arch Support Maker Name Role Phone Cuba Solano MD Primary Care Provider +1 [phone] Encounter Details Date Type Department Care Team (Latest Contact Info) Description 10/06/1999 Outpatient Historical [facility] Family Medicine [place] [address] [address] Donte Borrego MD NO ADDRESS ON FILE Esophageal reflux (Primary Dx); Other and unspecified hyperlipidemia; Unspecified essential hypertension; Nonspecific abnormal results of liver function study Social History Tobacco Use Types Packs/Day Years Used Date Smoking Tobacco: Never Assessed Sex and Gender Information Value Date Recorded Sex Assigned at Not on file Legal Sex Male 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
--- OUTSIDE RECORDS SUMMARY | 2025-01-13 19:39 | XMS_ITS | Encounter Summary ---
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; GOUT NOS Social History Tobacco Use Types Packs/Day Years Used Date Smoking Tobacco: Never Assessed Sex and Gender Information Value Date Recorded Sex Assigned at Not on file Legal 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
--- OUTSIDE RECORDS SUMMARY | 2025-01-13 19:39 | XMS_ITS | Encounter Summary ---
Author Organization [facility] Address [address] [place] [address] Care Team Providers Care Coremaker Name Role Phone Cuba Solano MD Primary Care Provider +1 -[phone] Encounter Details Date Type Department Care Team (Latest Contact Info) Description 08/15/1999 Outpatient Historical [facility] [place] [address] [place] [address] Other convulsions (Primary Dx) Social History Tobacco Use Types Packs/Day Years Used Date Smoking Tobacco: Never Assessed Sex and Gender Information Value Date Recorded Sex Assigned at Not on file Legal Sex Male 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
--- OUTSIDE RECORDS SUMMARY | 2025-01-13 19:39 | XMS_ITS | Encounter Summary ---
Author Organization [facility] Address [address] [place] [address] Care Team Providers Care Home Health Care Physician Name Role Phone Cuba Solano MD Primary Care Provider +1 [phone] Encounter Details Date Type Department Care Team (Latest Contact Info) Description 03/05/1999 Outpatient Historical [facility] Family Medicine [place] [address] [address] Donte Borrego MD NO ADDRESS ON FILE Need vaccination-viral disease (Primary Dx); Encounter for long-term (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 of other medications Social History Tobacco Use Types Packs/Day Years Used Date Smoking Tobacco: Never Assessed Sex and Gender Information Value Date Recorded Sex Assigned at Not on file Legal 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
--- OUTSIDE RECORDS SUMMARY | 2025-01-13 19:39 | XMS_ITS | Encounter Summary ---
Author Organization [facility] Address [address] [place] [address] Care Team Providers Care Auto Headlight Mechanic Name Role Phone Cuba Solano MD Primary Care Provider +1 -[phone] Encounter Details Date Type Department Care Team (Latest Contact Info) Description 12/25/2003 Outpatient Historical [facility] Family Medicine [place] [address] [address] Donte Borrego MD NO ADDRESS ON FILE EDEMA (Primary Dx); APNEA; POLYP OF NASAL CAVITY Social History Tobacco Use Types Packs/Day Years Used Date Smoking Tobacco: Never Assessed Sex and Gender Information Value Date Recorded Sex Assigned at Not on file 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
--- OUTSIDE RECORDS SUMMARY | 2025-01-13 19:39 | XMS_ITS | Encounter Summary ---
Author Organization [facility] Address [address] [place] [address] Care Team Providers Care Director Of Programming Name Role Phone Cuba Solano MD Primary Care Provider +1 -[phone] Encounter Details Date Type Department Care Team (Latest Contact Info) Description 10/02/[address] 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
--- OUTSIDE RECORDS SUMMARY | 2025-01-13 19:39 | XMS_ITS | Encounter Summary ---
Author Organization [facility] Address [address] [place] [address] Care Team Providers Care Security Rep Name Role Phone Cuba Solano MD Primary Care Provider +1 -[phone] Encounter Details Date Type Department Care Team (Latest Contact Info) Description 10/02/2003 Outpatient Historical [facility] Family Medicine [place] [address] [address] Keyona Mccloud, LUCIEN NO ADDRESS ON FILE HYPERLIPIDEMIA NEC/NOS (Primary Dx) Social History Tobacco Use Types Packs/Day Years Used Date Smoking Tobacco: Never Assessed Sex and Gender Information Value Date Recorded Sex Assigned at Not on file 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
--- OUTSIDE RECORDS SUMMARY | 2025-01-13 19:39 | XMS_ITS | Encounter Summary ---
Author Organization [facility] Address [address] [place] [address] Care Team Providers Care Distribution Engineering Technologist Name Role Phone Cuba Solano MD Primary Care Provider +1 -[phone] Encounter Details Date Type Department Care Team (Latest Contact Info) Description 08/09/2002 Outpatient Historical [facility] Family Medicine [place] [address] [address] Donte Borrego MD NO ADDRESS ON FILE Benign hypertension (Primary Dx); ALLERGY, UNSPECIFIED Social History Tobacco Use Types Packs/Day Years Used Date Smoking Tobacco: Never Assessed Sex and Gender Information Value Date Recorded Sex Assigned at Not on file Legal 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
--- OUTSIDE RECORDS SUMMARY | 2025-01-13 19:39 | XMS_ITS | Encounter Summary ---
Author Organization [facility] Address [address] [place] [address] Care Team Providers Care Retail Department Reset Name Role Phone Cuba Solano MD Primary Care Provider +1 [phone] Encounter Details Date Type Department Care Team (Latest Contact Info) Description 08/07/[address] 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
--- OUTSIDE RECORDS SUMMARY | 2025-01-13 19:39 | XMS_ITS | Encounter Summary ---
Author Organization [facility] Address [address] [place] [address] Care Team Providers Care Award Clerk Name Role Phone Cuba Solano MD Primary Care Provider [phone] Encounter Details Date Type Department Care Team (Latest Contact Info) Description 11/02/2003 Outpatient Historical [facility] Family Medicine [place] [address] [address] Donte Borrego MD NO ADDRESS ON FILE ANEMIA NOS (Primary Dx) Social History Tobacco Use Types Packs/Day Years Used Date Smoking Tobacco: Never Assessed Sex and Gender Information Value Date Recorded Sex Assigned at Not on file Legal Sex Male 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
--- OUTSIDE RECORDS SUMMARY | 2025-01-13 19:39 | XMS_ITS | Clinical Summary ---
Author Organization [facility] Facility Address [address] [address] Care Team Providers Care Sports Analyst Name Role Phone Loren Canada MD Primary Care Provider [phone] Allergies Active Allergy Reactions Criticality Noted Date Comments Penicillins Rash High 09/15/2007 Sulfa Antibiotics 09/15/2007 Sulfamethoxazole-Trimethoprim Rash High 2007 Medications apixaban (ELIQUIS) 5 MG tablet Take 1 tablet by mouth in the morning and 1 tablet in the evening. Active HYDROcodone-acet aminophen (NORCO) 5-325 MG per tablet Take 1 tablet by mouth 3 (three) times a day if needed 3 Active amiodarone (PACERONE) 200 MG tablet Take 1 tablet by mouth 1 (one) time each day Active Ferrous Gluconate (IRON 27 PO) Take 1 tablet by mouth 1 (one) time each day Active allopurinol (ZYLOPRIM) 300 MG tablet Take 1 tablet by mouth 1 (one) time each day 9 Active cyanocobalamin (VITAMIN B-12) 1000 MCG/ML injection Inject 1 mL into the shoulder, thigh, or buttocks every 30 (thirty) days 8 Active isosorbide mononitrate (IMDUR) 60 MG 24 hr tablet Take 2 tablets by mouth in the morning and 2 tablets in the evening. Active cycloSPORINE (RESTASIS OP) Administer 1 drop into both eyes twice a day Active metoclopramide (REGLAN) 10 MG tablet Take 1 tablet by mouth in the morning and 1 tablet at noon and 1 tablet in the evening and 1 tablet before bedtime. Ac and qhs. 11/20/200 8 Active metFORMIN (GLUCOPHAGE) 1000 MG tablet Take 1 tablet by mouth in the morning and 1 tablet in the evening. Active tamsulosin (FLOMAX) 0.4 MG 24 hr capsule Take 1 capsule by mouth 1 (one) time each day Active Dapagliflozin Propanediol (Farxiga) 10 MG tablet Take 10 mg by mouth 1 (one) time each day Active insulin degludec (Tresiba FlexTouch) 200 UNIT/ML injection Inject 100 Units under the skin 1 (one) time each day 120 units at HS Active levocetirizine (XYZAL) 5 MG tablet Take 1 tablet by mouth 1 (one) time each day Active telmisartan (MICARDIS) 80 MG tablet Take 1 tablet by mouth 1 (one) time each day Active insulin regular (NovoLIN R) 100 UNIT/ML injection Inject 35 Units under the skin in the morning and 35 Units at noon and 35 Units in the evening. Per sliding scale. Active atorvastatin (LIPITOR) 20 MG tablet Take 1 tablet by mouth 1 (one) time each day Active montelukast (SINGULAIR) 10 MG tablet Take 1 tablet by mouth 1 (one) time each day 8 Active testosterone cypionate (DEPO-TESTOTERON E) 200 MG/ML injection Inject 2 mL into the shoulder, thigh, or buttocks every 14 (fourteen) days Active Vit-Fe Fumarate-FA ( 1+1 PO) Take 1 tablet by mouth 1 (one) time each day Active dilTIAZem SR (CARDIZEM SR) 120 MG 12 hr capsule Take 2 capsules by mouth in the morning and 2 capsules in the evening. Active Vibegron (Gemtesa) 75 MG tablet Take 1 tablet by mouth 1 (one) time each day Active Budeson-Glycopyr rol-Formoterol (Breztri Aerosphere) 160-9-4.8 MCG/ACT aerosol Inhale 2 puffs 2 (two) times a day Active metoprolol tartrate (LOPRESSOR) 100 MG tablet Take 100 mg by mouth in the morning and 100 mg in the evening. Active ergocalciferol 1.25 MG (02449 UT) capsule Take 50,000 Units by mouth 2 (two) times a week Active Fluticasone-Umec lidin-Vilant 200-62.5-25 MCG/ACT aerosol powder Inhale 1 puff 1 (one) time each day Active ipratropium HFA (ATROVENT HFA) 17 MCG/ACT inhaler Inhale 2 puffs in the morning and 2 puffs at noon and 2 puffs in the evening and 2 puffs before bedtime. As needed . Active spironolactone (ALDACTONE) 25 MG tablet Take 12.5 mg by mouth 1 (one) time each day Active docusate sodium (COLACE) 100 MG capsule Take 100 mg by mouth in the morning and 100 mg in the evening. Active pregabalin (LYRICA) 50 MG capsule Take 50 mg by mouth in the morning and 50 mg in the evening and 50 mg before bedtime. Active pantoprazole (PROTONIX) 40 MG EC tablet Take 40 mg by mouth in the morning and 40 mg in the evening. Do not crush, chew, or split. . Active zinc gluconate 50 MG tablet Take 50 mg by mouth 1 (one) time each day Active amitriptyline (ELAVIL) 50 MG tablet TAKE ONE TABLET BY MOUTH EVERYDAY AT BEDTIME 3 Active VITAMIN A PO Take 3,000 mg by mouth 1 (one) time each day Active guaiFENesin 200 MG tablet Take 400 mg by mouth every 4 (four) hours if needed for cough Active erythromycin (ROMYCIN) ophthalmic ointment Apply to both eyes every night Unable to get from pharmacy taking refresh eye drops OTC until available Active acetaminophen (TYLENOL) 500 MG tablet Take by mouth every 6 (six) hours if needed for mild pain Active glucosamine-melony droitin 500-400 MG tablet Take 1 tablet by mouth in the morning and 1 tablet in the evening and 1 tablet before bedtime. Active cloNIDine (CATAPRES) 0.3 MG tablet Take 1 tablet by mouth in the morning and 1 tablet at noon and 1 tablet in the evening. 3 Active Restasis MultiDose 0.05 % ophthalmic emulsion Administer 1 drop into both eyes in the morning and 1 drop in the evening. 3 Active Diclofenac Sodium 1 % gel 4 times a day 3 Active dilTIAZem SR (CARDIZEM SR) 60 MG 12 hr capsule Take 1 capsule by mouth 1 (one) time each day 3 Active mupirocin (BACTROBAN) 2 % ointment APPLY A THIN FILM ON SORES THREE TIMES DAILY NEEDED 3 Active clindamycin (CLINDAGEL) 1 % gel 2 (two) times a day Active fluticasone (FLONASE) 50 MCG/ACT nasal spray USE ONE TO TWO SPRAYS IN EACH NOSTRIL ONCE DAILY NEEDED 3 Active furosemide (LASIX) 20 MG tablet TAKE TWO TABLETS BY MOUTH ONCE DAILY IN THE MORNING NEEDED FOR EDEMA/SWELLING 3 Active Patiromer Sorbitex Calcium (Veltassa) 8.4 g pack Take 8.4 g by mouth 3 times weekly: Wed Wed, and Wed in the evening. Active Active Problems Problem Noted Date Diagnosed Date Chronic kidney disease stage 3 due to type 2 diabetes mellitus 05/06/2023 Benign essential hypertension 10/05/2022 Encounters Date Type Department Care Team Description 11/09/2024 Documentation Only [facility] [address] [place] [id number] Angy Garcia from Last 3 Months Immunizations Immunization Administration Dates Next Due Influenza, Unspecified 02/04/2009,2007,01/31/2007,02/06/2005,01/31,04/07/2001,03/05/1999,04/08/1998 Pneumococcal Polysaccharide 02/21/2008, 2 Family History Medical History Relation Comments Heart disease Father Relation Status Comments Father Social History Tobacco Use Types Packs/Day Years Used Date Smoking Tobacco: Never Smokeless Tobacco: Current Chew Tobacco Cessation:Ready to Q uit: Not Asked; Counseling Given: Not Answered Alcohol Use Standard Drinks/Week Comments Never 0 (1 standard drink = 0.6 oz pur e alcohol) Sex and Gender Information Value Date Recorded Sex Assigned at Not on file Legal Sex Male 10:31 AM EDT Gender Identity Not on file Sexual Orientation Not on file Last Filed Vital Signs Vital Sign Reading Time Taken Comments Blood Pressure 118/72 05/06/2023 11:00 AM RESERVATION AGENT Pulse 81 05/06/2023 11:00 AM RESERVATION AGENT Temperature - - Respiratory Rate - - Oxygen Saturation - - Inhaled Oxygen Concentration - - Weight 206 kg (455 lb) 05/06/2023 11:00 AM RESERVATION AGENT p er patient Height 182.9 cm (6') 05/06/2023 11:00 AM RESERVATION AGENT Body Mass Index 61.71 05/06/2023 11:00 AM RESERVATION AGENT Plan of Treatment Health Maintenance Due Date Last Done Comments Pneumococcal Vaccine: 50+ Years (3 of 3 - PCV) 02/20/2009 02/21/2008, 07/04/2001 Colorectal Cancer Screening: Annual FOBT 07/23/2012 Colorectal Cancer Screening: Colonoscopy 07/23/2012 Diabetes: Ophthalmology Exam 09/29/2022 Diabetes: Pedal Pulse Checked 09/29/2022 Diabetes: Sensory Foot Exam 09/29/2022 Diabetes: Visual Foot Exam 09/29/2022 Diabetes: Hemoglobin A1C 10/23/2022 07/23/2022 Influenza Vaccine (#1) 2025 3, 02/20/2022, 02/25/2021, Additional history exists Colorectal Cancer Screening: Sigmoidoscopy 01/25/2025 01/26/2020 Pneumococcal Vaccine: Peds (0 to 5 Years) and At-Risk Patients (6 to 49 Years) Discontinued 02/21/2008, 07/04/2001 Hepatitis B Vaccine Aged Out No longe r eligible based on patient's age to complete this topic Procedures Procedure Name Priority Date/Time Associated Diagnosis Comments HEMOGLOBIN A1C (EXTERNAL RESULT ENTRY) Routine 07/23/2022 1:59 PM CDT from Last 3 Months or Most Recently Relevant to Health Maintenance Results * Hemoglobin A1C (07/23/2022 1:59 PM CDT) Hemoglobin A1C 6.8 Blood specimen (specimen) Venous blood / Unknown 07/23/2022 1:59 PM CDT Narrative Barbara Reynolds LPN - 10/05/2022 9:01 AM CDT Referral lab us Historical Provider LAB BLOOD ORDERABLES Susanne lyn Result from Last 3 Months or Most Recently Relevant to Health Maintenance Insurance Medicare Medicaid [place] ([id number]) Care Teams Sports Analyst Relationship Specialty Start Date End Date Loren Canada MD [address] [address] PCP - General Family Medicine 09/22/22
--- OUTSIDE RECORDS SUMMARY | 2025-01-13 19:39 | XMS_ITS | Encounter Summary ---
Author Organization [facility] Address [address] [place] [address] Care Team Providers Care Cinder Worker Name Role Phone Cuba Solano MD Primary Care Provider [phone] Encounter Details Date Type Department Care Team (Latest Contact Info) Description 12/04/2003 Outpatient Historical [facility] Family Medicine [place] [id number] [address] Donte Borrego MD NO ADDRESS ON FILE URIN TRACT INFECTION NOS (Primary Dx) Social History Tobacco Use Types Packs/Day Years Used Date Smoking Tobacco: Never Assessed Sex and Gender Information Value Date Recorded Sex Assigned at Not on file Legal Sex Male 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
--- OUTSIDE RECORDS SUMMARY | 2025-01-13 19:39 | XMS_ITS | Encounter Summary ---
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
--- OUTSIDE RECORDS SUMMARY | 2025-01-13 19:39 | XMS_ITS | Encounter Summary ---
Author Organization [facility] Address [address] [place] [address] Care Team Providers Care Equipment Hire Manager Name Role Phone Cuba Solano MD Primary Care Provider [phone] Encounter Details Date Type Department Care Team (Latest Contact Info) Description 01/10/2004 Outpatient Historical [facility] Family Medicine [place] [address] [address] Donte Borrego MD NO ADDRESS ON FILE Pain in limb (Primary Dx); JOINT PAIN-ANKLE Social History Tobacco Use Types Packs/Day Years Used Date Smoking Tobacco: Never Assessed Sex and Gender Information Value Date Recorded Sex Assigned at Not on file Legal 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
--- OUTSIDE RECORDS SUMMARY | 2025-01-13 19:39 | XMS_ITS | Encounter Summary ---
Author Organization [facility] Address [address] [place] [address] Care Team Providers Care Educational Institution Curator Name Role Phone Cuba Solano MD Primary Care Provider [phone] Encounter Details Date Type Department Care Team (Latest Contact Info) Description 10/16/2003 Outpatient Historical [facility] Endoscopy [address] 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
--- OUTSIDE RECORDS SUMMARY | 2025-01-13 19:39 | XMS_ITS | Encounter Summary ---
Author Organization [facility] Address [address] [place] [address] Care Team Providers Care Commercial Loan Underwriter Name Role Phone Cuba Solano MD Primary Care Provider [phone] Encounter Details Date Type Department Care Team (Latest Contact Info) Description 01/03/2003 Outpatient Historical [facility] Family Medicine [place] [address] [address] Donte Borrego MD NO ADDRESS ON FILE ACUTE PHARYNGITIS (Primary Dx); ACUTE URI NOS Social History Tobacco Use Types Packs/Day Years Used Date Smoking Tobacco: Never Assessed Sex and Gender Information Value Date Recorded Sex Assigned at Not on file Legal 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
--- OUTSIDE RECORDS SUMMARY | 2025-01-13 19:39 | XMS_ITS | Encounter Summary ---
Author Organization [facility], [facility] Address [address] [place] [address] Phone Care Team Providers Care Hand Woven Carpet And Rug Mender Name Role Phone Loren Canada MD Primary Care Provider [phone] Encounter Details Date Type Department Care Team (Late st Contact Info) Description 09/22/2022 [facility] Only [facility] [address] [facility] [address] [place] [address] Chronic kidney disease stage 3B (HCC) Social History Tobacco Use Types Packs/Day Years Used Date Smoking Tobacco: Never Assessed Sex and Gender Information Value Date Recorded Sex Assigned at Not on file Legal Sex Male 10:31 AM EDT Gender Identity Not on file Sexual Orientation Not on file documented as of this encounter Plan of Treatment Not on file documented as of this encounter Visit Diagnoses Diagnosis Chronic kidney disease stage 3B (HCC) documented in this encounter Care Teams Hand Woven Carpet And Rug Mender Relationship Specialty Start Date End Date Loren Canada MD [address] [place], [place] [address] PCP - General Family Medicine 09/22/22 documented as of this encounter
--- OUTSIDE RECORDS SUMMARY | 2025-01-13 19:39 | XMS_ITS | Encounter Summary ---
Author Organization [facility] Address [address] [place] [address] Care Team Providers Care Manager Eligibility Name Role Phone Cuba Solano MD Primary Care Provider [phone] Encounter Details Date Type Department Care Team (Latest Contact Info) Description 01/07/2000 Outpatient Historical [facility] Family Medicine [place] [address] [address] Donte Borrego MD NO ADDRESS ON FILE Other abnormal clinical finding (Primary Dx); Encounter for long-term (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 of other medications; Unspecified essential hypertension Social History Tobacco Use Types Packs/Day Years Used Date Smoking Tobacco: Never Assessed Sex and Gender Information Value Date Recorded Sex Assigned at Not on file Legal 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
--- OUTSIDE RECORDS SUMMARY | 2025-01-13 19:39 | XMS_ITS | Encounter Summary ---
Author Organization [facility] Address [address] [place] [address] Care Team Providers Care Manufacturing Plant Controller Name Role Phone Cuba Solano MD Primary Care Provider [phone] Encounter Details Date Type Department Care Team (Latest Contact Info) Description 11/02/2003 Outpatient Historical [facility] Family Medicine [place] [address] [address] Donte Borrego MD NO ADDRESS ON FILE HYPERTENSION NOS (Primary Dx) Social History Tobacco Use Types Packs/Day Years Used Date Smoking Tobacco: Never Assessed Sex and Gender Information Value Date Recorded Sex Assigned at Not on file Legal Sex Male 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
--- OUTSIDE RECORDS SUMMARY | 2025-01-13 19:39 | XMS_ITS | Encounter Summary ---
Author Organization [facility] Address [address] [place] [address] Care Team Providers Care Injection Maintenance Technician Name Role Phone Cuba Solano MD Primary Care Provider [phone] Encounter Details Date Type Department Care Team (Latest Contact Info) Description 03/14/2004 Outpatient Historical [facility] [address] [place] [address] Kvng Kilpatrick MD NO ADDRESS ON FILE HYPERSOMNI W SLEEP APNEA (Primary Dx) Social History Tobacco Use Types Packs/Day Years Used Date Smoking Tobacco: Never Assessed Sex and Gender Information Value Date Recorded Sex Assigned at Not on file Legal Sex Male 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
--- OUTSIDE RECORDS SUMMARY | 2025-01-13 19:39 | XMS_ITS | Encounter Summary ---
Author Organization [facility] Address [address] [place] [address] Care Team Providers Care Oracle Webcenter Consultant Name Role Phone Cuba Solano MD Primary Care Provider [phone] Encounter Details Date Type Department Care Team (Latest Contact Info) Description 03/05/2003 Outpatient Historical [facility] Family Medicine [place] [address] [address] Keyona Mccloud, LUCIEN NO ADDRESS ON FILE OTHER MALAISE AND FATIGUE (Primary Dx) Social History Tobacco Use Types Packs/Day Years Used Date Smoking Tobacco: Never Assessed Sex and Gender Information Value Date Recorded Sex Assigned at Not on file Legal 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
--- OUTSIDE RECORDS SUMMARY | 2025-01-13 19:39 | XMS_ITS | Encounter Summary ---
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
--- OUTSIDE RECORDS SUMMARY | 2025-01-13 19:39 | XMS_ITS | Encounter Summary ---
Author Organization [facility] Address [address] [place] [address] Care Team Providers Care Regional Sales Coordinator Name Role Phone Cuba Solano MD Primary Care Provider +1 [phone] Encounter Details Date Type Department Care Team (Latest Contact Info) Description 01/03/2004 Outpatient Historical [facility] Family Medicine [place] [address] [address] Keyona Mccloud, LUCIEN NO ADDRESS ON FILE ANEMIA NOS (Primary Dx) Social History Tobacco Use Types Packs/Day Years Used Date Smoking Tobacco: Never Assessed Sex and Gender Information Value Date Recorded Sex Assigned at Not on file Legal 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
--- OUTSIDE RECORDS SUMMARY | 2025-01-13 19:39 | XMS_ITS | Encounter Summary ---
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
--- OUTSIDE RECORDS SUMMARY | 2025-01-13 19:39 | XMS_ITS | Encounter Summary ---
Author Organization [facility] Address [address] [place] [address] Care Team Providers Care Admissions Clinician Name Role Phone Cuba Solano MD Primary Care Provider +1 [phone] Encounter Details Date Type Department Care Team (Latest Contact Info) Description 08/13/1998 Outpatient Historical [facility] [address] [place] [address] Other convulsions (Primary Dx) Social History Tobacco Use Types Packs/Day Years Used Date Smoking Tobacco: Never Assessed Sex and Gender Information Value Date Recorded Sex Assigned at Not on file Legal 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
--- OUTSIDE RECORDS SUMMARY | 2025-01-13 19:39 | XMS_ITS | Encounter Summary ---
Author Organization [facility] Address [address] [place] [address] Care Team Providers Care Rn Field Case Manager Name Role Phone Cuba Solano MD Primary Care Provider +1 [phone] Encounter Details Date Type Department Care Team (Latest Contact Info) Description 04/10/1999 Outpatient Historical [facility] Family Medicine Angelica [place] 124542 [address] [address] Donte Borrego MD NO ADDRESS ON FILE Unspecified essential hypertension (Primary Dx) Social History Tobacco Use Types Packs/Day Years Used Date Smoking Tobacco: Never Assessed Sex and Gender Information Value Date Recorded Sex Assigned at Not on file Legal 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
--- OUTSIDE RECORDS SUMMARY | 2025-01-13 19:39 | XMS_ITS | Encounter Summary ---
Author Organization [facility] Address [address] [place] [address] Care Team Providers Care Steel Manager Name Role Phone Cuba Solano MD Primary Care Provider +1 [phone] Encounter Details Date Type Department Care Team (Latest Contact Info) Description 07/03/2002 Outpatient Historical [facility] Family Medicine [place] [id number] [address] [address] Donte Borrego MD NO ADDRESS ON FILE OTHER MALAISE AND FATIGUE (Primary Dx) Social History Tobacco Use Types Packs/Day Years Used Date Smoking Tobacco: Never Assessed Sex and Gender Information Value Date Recorded Sex Assigned at Not on file Legal Sex Male 2: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
--- OUTSIDE RECORDS SUMMARY | 2025-01-13 19:39 | XMS_ITS | Encounter Summary ---
Author Organization [facility] Address [address] [place] [address] Care Team Providers Care Public Works Technician Name Role Phone Cuba Solano MD Primary Care Provider +1 [phone] Encounter Details Date Type Department Care Team (Latest Contact Info) Description 01/15/1998 Outpatient Historical [facility] Moi George MD [address] [place] [address] Blood in stool (Primary Dx); Nonspecific abnormal results of liver function study Social History Tobacco Use Types Packs/Day Years Used Date Smoking Tobacco: Never Assessed Sex and Gender Information Value Date Recorded Sex Assigned at Not on file Legal 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
--- OUTSIDE RECORDS SUMMARY | 2025-01-13 19:39 | XMS_ITS | Encounter Summary ---
Author Organization [facility] Address [address] [place] [address] Care Team Providers Care Baggagemaster Name Role Phone Cuba Solano MD Primary Care Provider +1 [phone] Encounter Details Date Type Department Care Team (Latest Contact Info) Description 11/01/2002 Outpatient Historical [facility] Family Medicine [place] 208932 [address] [address] Donte Borrego MD NO ADDRESS ON FILE OTHER MALAISE AND FATIGUE (Primary Dx) Social History Tobacco Use Types Packs/Day Years Used Date Smoking Tobacco: Never Assessed Sex and Gender Information Value Date Recorded Sex Assigned at Not on file Legal Sex Male 2:49 AM TRIAL EXAMINER Gender Identity Not on file Sexual Orientation Not on file documented as of this encounter Plan of Treatment Not on file documented as of this encounter Visit Diagnoses Diagnosis Other malaise and fatigue- Primary documented in this encounter Care Teams Baggagemaster Relationship Specialty Start Date End Date Cuba Sloano MD PCP - General 07/11/09 documented as of this encounter
--- OUTSIDE RECORDS SUMMARY | 2025-01-13 19:39 | XMS_ITS | Encounter Summary ---
Author Organization [facility] Address [address] [place] [address] Care Team Providers Care Director Of Science Name Role Phone Cuba Solano MD Primary Care Provider +1 [phone] Encounter Details Date Type Department Care Team (Latest Contact Info) Description 11/12/2003 Outpatient Historical [facility] Family Medicine [place] [id number] [address] Donte Borrego MD NO ADDRESS ON FILE URIN TRACT INFECTION NOS (Primary Dx) Social History Tobacco Use Types Packs/Day Years Used Date Smoking Tobacco: Never Assessed Sex and Gender Information Value Date Recorded Sex Assigned at Not on file Legal 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
--- OUTSIDE RECORDS SUMMARY | 2025-01-13 19:39 | XMS_ITS | Encounter Summary ---
Author Organization [facility] Address [address] [place] [address] Care Team Providers Care Cytogenetics Laboratory Manager Name Role Phone Cuba Solano MD Primary Care Provider +1 [phone] Encounter Details Date Type Department Care Team (Latest Contact Info) Description 02/15/2004 Outpatient Historical [facility] Family Medicine [place] [address] [address] Keyona Mccloud, LUCIEN NO ADDRESS ON FILE Vaccine for influenza (Primary Dx); ABN BLOOD CHEMISTRY NEC; URINARY FREQUENCY Social History Tobacco Use Types Packs/Day Years Used Date Smoking Tobacco: Never Assessed Sex and Gender Information Value Date Recorded Sex Assigned at Not on file Legal Sex Male 2: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
--- OUTSIDE RECORDS SUMMARY | 2025-01-13 19:39 | XMS_ITS | Encounter Summary ---
Author Organization [facility] Address [address] [place] [address] Care Team Providers Care Plate Glass Grinder Name Role Phone Cuba Solano MD Primary Care Provider +1 -[phone] Encounter Details Date Type Department Care Team (Latest Contact Info) Description 10/23/2003 Outpatient Historical [facility] Family Medicine Angelica [address] [address] Donte Borrego MD NO ADDRESS ON FILE TOBACCO USE DISORDER (Primary Dx); ALLERGY, UNSPECIFIED Social History Tobacco Use Types Packs/Day Years Used Date Smoking Tobacco: Never Assessed Sex and Gender Information Value Date Recorded Sex Assigned at Not on file Legal Sex Male 2:49 AM BLOOD DONOR RECRUITER 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
--- OUTSIDE RECORDS SUMMARY | 2025-01-13 19:39 | XMS_ITS | Encounter Summary ---
Author Organization [facility] Address [address] [place] [address] Care Team Providers Care Ase Master Mechanic Name Role Phone Cuba Solano MD Primary Care Provider +1 [phone] Encounter Details Date Type Department Care Team (Latest Contact Info) Description 10/16/2003 Outpatient Historical [facility] [place] [address] [place] [address] Sandro Haines MD [address] [facility] [address] [place] [address] MELENA, BLOOD IN STOOL (Primary Dx) Social History Tobacco Use Types Packs/Day Years Used Date Smoking Tobacco: Never Assessed Sex and Gender Information Value Date Recorded Sex Assigned at Not on file Legal Sex Male 2:49 AM BIOMED TECH Gender Identity Not on file Sexual Orientation Not on file documented as of this encounter Plan of Treatment Not on file documented as of this encounter Visit Diagnoses Diagnosis Blood in stool- Primary documented in this encounter Care Teams Ase Master Mechanic Relationship Specialty Start Date End Date Cuba Solano MD PCP - General 07/11/09 documented as of this encounter
--- OUTSIDE RECORDS SUMMARY | 2025-01-13 19:39 | XMS_ITS | Encounter Summary ---
Author Organization [facility] Address [address] [place] [address] Care Team Providers Care Poundmaster Name Role Phone Cuba Solano MD Primary Care Provider +1 [phone] Encounter Details Date Type Department Care Team (Latest Contact Info) Description 01/29/1998 Outpatient Historical [facility] Family Medicine Angelica [address] [address] Donte Borrego MD NO ADDRESS ON FILE Unspecified suppurative otitis media (Primary Dx) Social History Tobacco Use Types Packs/Day Years Used Date Smoking Tobacco: Never Assessed Sex and Gender Information Value Date Recorded Sex Assigned at Not on file Legal Sex Male 2:49 AM PROJECT ANALYST Gender Identity Not on file Sexual Orientation Not on file documented as of this encounter Plan of Treatment Not on file documented as of this encounter Visit Diagnoses Diagnosis Unspecified suppurative otitis media- Primary documented in this encounter Care Teams Poundmaster Relationship Specialty Start Date End Date Cuba Solano MD PCP - General 07/11/09 documented as of this encounter
--- OUTSIDE RECORDS SUMMARY | 2025-01-13 19:39 | XMS_ITS | Encounter Summary ---
Author Organization [facility] Address [address] [place] [address] Care Team Providers Care Checker Stocker Name Role Phone Cuba Solano MD Primary Care Provider +1 [phone] Encounter Details Date Type Department Care Team (Latest Contact Info) Description 08/15/1999 Outpatient Historical [facility] Moi George MD [address] [place] [address] Nonspecific abnormal results of liver function study (Primary Dx); Esophageal reflux; Unspecified hemorrhoids 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 Social History Tobacco Use Types Packs/Day Years Used Date Smoking Tobacco: Never Assessed Sex and Gender Information Value Date Recorded Sex Assigned at Not on file Legal Sex Male 2:49 AM FREIGHT CALLER Gender Identity Not on file Sexual Orientation Not on file documented as of this encounter Plan of Treatment Not on file documented as of this encounter Visit Diagnoses Diagnosis Nonspecific abnormal results of liver function study- Primary Esophageal reflux Unspecified hemorrhoids 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 documented in this encounter Care Teams Checker Stocker Relationship Specialty Start Date End Date Cuba Solano MD PCP - General 07/11/09 documented as of this encounter
--- OUTSIDE RECORDS SUMMARY | 2025-01-13 19:39 | XMS_ITS | Encounter Summary ---
Author Organization [facility] Address [address] [place] [address] Care Team Providers Care Care Partner Name Role Phone Cuba Solano MD Primary Care Provider +1 -[phone] Encounter Details Date Type Department Care Team (Latest Contact Info) Description 10/30/2002 Outpatient Historical [facility] Family Medicine Angelica [address] [address] Donte Borrego MD NO ADDRESS ON FILE HYPERLIPIDEMIA NEC/NOS (Primary Dx); HYPERTENSION NOS; ALLERGY, UNSPECIFIED Social History Tobacco Use Types Packs/Day Years Used Date Smoking Tobacco: Never Assessed Sex and Gender Information Value Date Recorded Sex Assigned at Not on file 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
--- OUTSIDE RECORDS SUMMARY | 2025-01-13 19:39 | XMS_ITS | Encounter Summary ---
Author Organization [facility] Address [address] [place] [address] Care Team Providers Care Events Manager Name Role Phone Cuba Solano MD Primary Care Provider +1 [phone] Encounter Details Date Type Department Care Team (Latest Contact Info) Description 04/04/1999 Outpatient Historical [facility] Family Medicine Angelica [facility] [address] [address] Zara Royal, DO [address] [place] [address] Edema (Primary Dx); Unspecified essential hypertension Social History Tobacco Use Types Packs/Day Years Used Date Smoking Tobacco: Never Assessed Sex and Gender Information Value Date Recorded Sex Assigned at Not on file 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
--- OUTSIDE RECORDS SUMMARY | 2025-01-13 19:39 | XMS_ITS | Encounter Summary ---
Author Organization [facility] Address [address] [place] [address] Care Team Providers Care Double End Tenoner Setter Name Role Phone Cuba Solano MD Primary Care Provider +1 [phone] Encounter Details Date Type Department Care Team (Latest Contact Info) Description 05/30/2002 Outpatient Historical [facility] Family Medicine Angel[place] [address] [address] Donte Borrego MD NO ADDRESS ON FILE ANEMIA NOS (Primary Dx) Social History Tobacco Use Types Packs/Day Years Used Date Smoking Tobacco: Never Assessed Sex and Gender Information Value Date Recorded Sex Assigned at Not on file 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
--- OUTSIDE RECORDS SUMMARY | 2025-01-13 19:40 | XMS_ITS | Patient Health Record ---
Author Organization [facility] Address [address] [place] [address] Care Team Providers Care Advertising Project Manager Name Role Phone EDI SAMUELS Unavailable [phone] PHILLIP RAZO Unavailable [phone] GAMA GARCIA Unavailable [phone] Kain Marroquin Unavailable [phone] Allergies Allergen (clinical drug ingredient) Drug/Non Drug Allergy documented on EMR Reaction Allergy Type Onset Date Status Substance with sulfonamide structure and antibacterial mechanism of action (substance) Sulfa drugs (uncoded) Unknown Allergy Active Substance with penicillin structure and antibacterial mechanism of action (substance) Penicillins Unknown Drug Allergy Active Results Component Value Reference Range Notes CBC w/ Auto Diff Reviewed date:01/02/2025 11:41:10 AM Interpretation: Performing Lab: Notes/Report: Diagnosis Description: Encounter for other preprocedural examination Testing performed at: [address] [address] CLIA ID [id number] Diagnosis Description: Age-related physical debility Diagnosis Description: Encounter for preprocedural laboratory examination Diagnosis Description: Essential (primary) hypertension Diagnosis Description: Type 2 diabetes mellitus without complications Diagnosis Description: Encounter for other preprocedural examination Diagnosis Description: Age-related physical debility Diagnosis Description: Encounter for preprocedural laboratory examination Diagnosis Description: Essential (primary) hypertension Diagnosis Description: Type 2 diabetes mellitus without complications WBC 4.4 4.5-11.0 X10'3 RBC 3.33 4.50-5.90 X10'6 Hgb 9.6 13.5-17.5 G/DL Hct 28.9 41.0-53.0 % MCV 86.8 80.0-100.0 FL MCH 28.8 27.0-31.0 PG MCHC 33.2 31.0-37.0 G/DL Platelet 150 150-400 X10'3 RDW-SD 58.8 35.0-49.0 FL RDW-CV 18.3 12.2-15.6 % MPV 10.4 9.2-12.0 FL Neutro Auto% 68.9 40.0-70.0 % Lymph Auto% 12.0 22.0-44.0 % [place] Auto% 13.3 3.0-7.0 % Eos Auto% 4.6 2.0-4.0 % Baso Auto% 0.5 0.0-1.0 % Imm Gran% .7 .0-.4 % Neutro Abs 3.00 .80-7.70 Absolute Neutrophil Count 3000 Lymph Abs .52 .10-4.10 [place] Abs .58 .20-1.00 Eos Abs .20 .00-.40 Baso Abs .02 .00-.20 Imm Gran Abs .03 .00-.10 NRBC# .00 .00-.20 NRBC% .00 .00-.20 /100 intact WBC's Glucometer WBG Reviewed date:01/03/2025 04:50:43 PM Interpretation: Performing Lab: Notes/Report: Glucometer WBG 118 65-110 MG/DL Asymptomatic~Meter: [id number]~Terminal Supervisor: [id number] MARY BATES Testing performed at: [address] [place] [address] CLIA ID [id number] Glucometer WBG Reviewed date:01/03/2025 04:50:43 PM Interpretation: Performing Lab: Notes/Report: Glucometer WBG 128 65-110 MG/DL Asymptomatic~Meter: [id number]~Terminal Supervisor: [id number] EDI RATLIFF Testing performed at: [address] [place] [address] CLIA ID [id number] Reason For Referral No Information Medications Medication SIG (Take, Route, Frequency, Duration) Notes Start Date End Date Status Insulin Aspart PenFill 100 UNIT/ML as directed Subcutaneous Active Latanoprost 0.005 % 1 drop into affected eye in the evening Ophthalmic Once a day Active Fluticasone Propionate 93 MCG/ACT 2 sprays (1 spray in each nostril) Nasally Twice a day Active HYDROcodone-Acetaminophen 5-325 MG 1 tablet as needed Orally every 6 hrs Active Tylenol 325 MG 1 tablet as needed Orally every 6 hrs Active Montelukast Sodium 10 MG 1 tablet Orally Once a day Active Semaglutide 3 MG as directed Orally Active Midodrine HCl 5 MG 1 tablet Orally Twic e a day Active Milk of Magnesia 400 MG/5ML 5 mL as needed Orally Once a day Active Metoclopramide HCl 10 MG 1 tablet before meals Orally Twice a day Active Metoprolol Tartrate 100 MG 1 tablet with food Orally Twice a day Active Tamsulosin HCl 0.4 MG 1 capsule Orally O nce a day 200mg oil Active Amiodarone HCl 200 MG 1 tablet Orally On ce a day Active ZyrTEC 10 MG 1 tablet Orally Once a day Active Atorvastatin Calcium 20 MG 1 tablet Oral ly Once a day Active Simbrinza 1-0.2 % 1 drop into affected eye Ophthalmic Three times a day Active Spironolactone 25 MG 1 tablet Orally Onc e a day Active Allopurinol 300 MG 1 tablet Orally Once a day Active Pregabalin 25 MG 1 capsule Orally Onc e a day Active Esomeprazole Magnesium 40 MG 1 capsule 1/2 to 1 hour before morning meal Orally Once a day Active Docusate Sodium 100 MG 1 capsule as need ed Orally Once a day Active Eliquis 5 MG as directed Orally Active Testosterone Cypionate 200 MG/ML 0.5 mL Injection Active Debrox 6.5 % 5 drops into affecte d ear Otic Twice a day Active Dulcolax 5 MG 1 tablet as needed Orally Once a day Active Dapagliflozin Pro-metFORMIN ER 10-500 MG 1 tablet Orally Once a day Active Breztri Aerosphere 160-9-4.8 MCG/ACT 2 puffs Inhalation Twice a day Active Insulin Cartridge 3ML Active Cholecalciferol 25 MCG (1000 UT) 1 capsule Orally Once a day Active Social History Tobacco Use: Social History Observation Description Date Details (start date - stop date) Never Smoker NA - NA Tobacco Control (Standard) Question Answer Notes Tobacco use: Nonsmoker Additional Findings: Tobacco user Chews tobacco AUDIT-C (Standard) Question Answer Notes Did you have a drink containing alcohol in the p ast year? No Points 0 Interpretation Negative Section Notes: chews tabacco alcohol form er stopped 1993 chews tabacco alcohol form er stopped 1993 Problems Problem Type SNOMED Code ICD Code Onset Dates Problem Status W/U Status Risk Notes Problem Essential hypertension (13909805) Essential (primary) hypertension (I10) Active confirmed Problem Type II diabetes mellitus without complication (986865459) Type 2 diabetes mellitus without complication, unspecified whether care home insulin use (E11.9) Active confirmed Problem Heart failure (58147485) Chronic congestive heart failure, unspecified heart failure type (I50.9) Active confirmed Problem COPD - Chronic obstructive pulmonary disease (79483371) Chronic obstructive pulmonary disease, unspecified COPD type (J44.9) Active confirmed Problem Advanced age (92256349) Advanced age (R54) Active confirmed Vital Signs Heart Rate 116 /min 12/27/2024 Height-cm 182.88 cm 12/27/2024 Blood pressure diastolic 64 mm Hg 12/27/2024 Weight-kg 135.17 kg 12/27/2024 Height 72 in 12/27/2024 Blood pressure systolic 116 mm Hg 12/27/2024 Weight 298 lbs 12/27/2024 BMI 40.41 kg/m2 12/27/2024 Encounters Encounter Location Date Provider Diagnosis [facility] [address] [place] [address] 01/03/2025 EDI SAMUELS [facility] [address] [address] 11/21/2024 Kain Peyannick Urinary frequency R3 5.0 ; Urinary urgency R39.15 and Weak urinary stream R39.12 [facility] [address] [place] [address] 12/27/2024 Kain Pevril Pre-op testing Z01.8 18 ; Urinary frequency R35.0 ; Urinary urgency R39.15 and Weak urinary stream R39.12 [facility] [address] [place] [address] 11/02/2024 Kain Pevril [facility] [address] [place] [address] 11/22/2024 Kain Pevril [facility] [address] [place] [address] 12/25/2024 Kain Marroquin [facility] [address] [place] [address] 12/26/2024 EDI SAMUELS Pre-op testing Z01.8 18 ; Advanced age R54 ; Pre-procedure lab exam Z01.812 ; Preop cardiovascular exam Z01.810 ; Essential (primary) hypertension I10 ; Type 2 diabetes mellitus without complication, unspecified whether terminal supervisor insulin use E11.9 ; Chronic congestive heart failure, unspecified heart failure type I50.9 and Chronic obstructive pulmonary disease, unspecified COPD type J44.9 Assessments Encounter Date Diagnosis (ICD Code) Assessment Notes Treatment Notes Treatment Clinical Notes Section Notes 11/21/2024 Urinary urgency (ICD-10 - R39.15) We discussed the concept of maximal medical management of BPH as well as possible treatment with a transurethral procedure. We discussed consideration of in office cystoscopy in near future. 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 Continue flomax BID at this time. For now, and at this time, I am unable to assess if he is in retention or not. He is requesting pereira be placed and I am unable to even attempt this here at our clinic. I recommended that his [facility] facility can try, but if unsuccessful, they may need to transfer patient. I instructed patient to only allow 1 attempt at pereira placement. Orders written out and given to patient at discharge. Will schedule accordingly for diagnostic cysto and any other indicated procedures. He may not even need anesthesia, however, will still gain cardiac clearance. It was discussed on how the procedure is performed and was discussed along with risks/benefits/alt ernatives and postprocedural expectations. Case discussed and reviewed with Dr. Samuels. Patient elects to do so. RTC post op. Further recommendations postoperative. For now, and through shared decision making we are in agreement with this. Patient has no other voiced concerns or questions, and patient satisfied with plan. Total time spent reviewing patient's history, lab, diagnostics along with performing physical exam, formulating plan of care, and counseling patient was 55 minutes. 11/21/2024 Urinary frequency (ICD-10 - R35.0) We discussed the concept of maximal medical management of BPH as well as possible treatment with a transurethral procedure. We discussed consideration of in office cystoscopy in near future. 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 Continue flomax BID at this time. For now, and at this time, I am unable to assess if he is in retention or not. He is requesting pereira be placed and I am unable to even attempt this here at our clinic. I recommended that his [facility] facility can try, but if unsuccessful, they may need to transfer patient. I instructed patient to only allow 1 attempt at pereira placement. Orders written out and given to patient at discharge. Will schedule accordingly for diagnostic cysto and any other indicated procedures. He may not even need anesthesia, however, will still gain cardiac clearance. It was discussed on how the procedure is performed and was discussed along with risks/benefits/alt ernatives and postprocedural expectations. Case discussed and reviewed with Dr. Samuels. Patient elects to do so. RTC post op. Further recommendations postoperative. For now, and through shared decision making we are in agreement with this. Patient has no other voiced concerns or questions, and patient satisfied with plan. Total time spent reviewing patient's history, lab, diagnostics along with performing physical exam, formulating plan of care, and counseling patient was 55 minutes. 12/26/2024 Pre-op testing (ICD-10 - Z01.818) 12/27/2024 Urinary frequency (ICD-10 - R35.0) We again discus sed the concept of maximal medical management of BPH as well as possible treatment with a transurethral procedure. We discussed consideration of in office cystoscopy in near future. 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 Continue flomax BID at this time. For now, and at this time, I am unable to assess if he is in retention or not. He is scheduled for diagnostic cysto and any other indicated procedures in the OR. He is in need of presurgical labs, however, the auto driver is unable to take patient to hospital to have completed today. It was noted from transport when I personally talked with them they will hopefully have this completed wednesday or wednesday. If unable to have completed, we may be able to complete cystoscopy and any other procedure WITHOUT ANESTHESIA. He will still hold eliquis for 3 days per granted CC. Again, discussed on how the procedure is performed and was discussed along with risks/benefits/alt ernatives and postprocedural expectations. Case discussed and reviewed with Dr. Samuels. Patient elects to do so. RTC post op. Further recommendations postoperative. For now, and through shared decision making we are in agreement with this. Patient has no other voiced concerns or questions, and patient satisfied with plan. 12/27/2024 Pre-op testing (ICD-10 - Z01.818) We again discuss ed the concept of maximal medical management of BPH as well as possible treatment with a transurethral procedure. We discussed consideration of in office cystoscopy in near future. 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 Continue flomax BID at this time. For now, and at this time, I am unable to assess if he is in retention or not. He is scheduled for diagnostic cysto and any other indicated procedures in the OR. He is in need of presurgical labs, however, the auto driver is unable to take patient to hospital to have completed today. It was noted from transport when I personally talked with them they will hopefully have this completed wednesday or wednesday. If unable to have completed, we may be able to complete cystoscopy and any other procedure WITHOUT ANESTHESIA. He will still hold eliquis for 3 days per granted CC. Again, discussed on how the procedure is performed and was discussed along with risks/benefits/alt ernatives and postprocedural expectations. Case discussed and reviewed with Dr. Samuels. Patient elects to do so. RTC post op. Further recommendations postoperative. For now, and through shared decision making we are in agreement with this. Patient has no other voiced concerns or questions, and patient satisfied with plan. 11/21/2024 Weak urinary stream (ICD-10 - R39.12) We discussed the concept of maximal medical management of BPH as well as possible treatment with a transurethral procedure. We discussed consideration of in office cystoscopy in near future. 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 Continue flomax BID at this time. For now, and at this time, I am unable to assess if he is in retention or not. He is requesting pereira be placed and I am unable to even attempt this here at our clinic. I recommended that his [place] facility can try, but if unsuccessful, they may need to transfer patient. I instructed patient to only allow 1 attempt at pereira placement. Orders written out and given to patient at discharge. Will schedule accordingly for diagnostic cysto and any other indicated procedures. He may not even need anesthesia, however, will still gain cardiac clearance. It was discussed on how the procedure is performed and was discussed along with risks/benefits/alt ernatives and postprocedural expectations. Case discussed and reviewed with Dr. Samuels. Patient elects to do so. RTC post op. Further recommendations postoperative. For now, and through shared decision making we are in agreement with this. Patient has no other voiced concerns or questions, and patient satisfied with plan. Total time spent reviewing patient's history, lab, diagnostics along with performing physical exam, formulating plan of care, and counseling patient was 55 minutes. 12/27/2024 Urinary urgency (ICD-10 - R39.15) We again discu ssed the concept of maximal medical management of BPH as well as possible treatment with a transurethral procedure. We discussed consideration of in office cystoscopy in near future. 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 Continue flomax BID at this time. For now, and at this time, I am unable to assess if he is in retention or not. He is scheduled for diagnostic cysto and any other indicated procedures in the OR. He is in need of presurgical labs, however, the auto driver is unable to take patient to hospital to have completed today. It was noted from transport when I personally talked with them they will hopefully have this completed wednesday or wednesday. If unable to have completed, we may be able to complete cystoscopy and any other procedure WITHOUT ANESTHESIA. He will still hold eliquis for 3 days per granted CC. Again, discussed on how the procedure is performed and was discussed along with risks/benefits/alt ernatives and postprocedural expectations. Case discussed and reviewed with Dr. Samuels. Patient elects to do so. RTC post op. Further recommendations postoperative. For now, and through shared decision making we are in agreement with this. Patient has no other voiced concerns or questions, and patient satisfied with plan. 12/26/2024 Advanced age (ICD-10 - R54) 12/26/2024 Pre-procedure lab exam (ICD-10 - Z01.812) 12/27/2024 Weak urinary stream (ICD-10 - R39.12) We again discuss ed the concept of maximal medical management of BPH as well as possible treatment with a transurethral procedure. We discussed consideration of in office cystoscopy in near future. 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 Continue flomax BID at this time. For now, and at this time, I am unable to assess if he is in retention or not. He is scheduled for diagnostic cysto and any other indicated procedures in the OR. He is in need of presurgical labs, however, the auto driver is unable to take patient to hospital to have completed today. It was noted from transport when I personally talked with them they will hopefully have this completed wednesday or wednesday. If unable to have completed, we may be able to complete cystoscopy and any other procedure WITHOUT ANESTHESIA. He will still hold eliquis for 3 days per granted CC. Again, discussed on how the procedure is performed and was discussed along with risks/benefits/alt ernatives and postprocedural expectations. Case discussed and reviewed with Dr. Samuels. Patient elects to do so. RTC post op. Further recommendations postoperative. For now, and through shared decision making we are in agreement with this. Patient has no other voiced concerns or questions, and patient satisfied with plan. 12/26/2024 Preop cardiovascular exam (ICD-10 - Z01.810) 12/26/2024 Essential (primary) hypertension (ICD-10 - I10) 12/26/2024 Type 2 diabetes mellitus without complication, unspecified whether care home insulin use (ICD-10 - E11.9) 12/26/2024 Chronic congestive heart failure, unspecified heart failure type (ICD-10 - I50.9) 12/26/2024 Chronic obstructive pulmonary disease, unspecified COPD type (ICD-10 - J44.9) Plan Of Treatment Pending Test Test Name Order Date Urinalysis, Routine 12/27/2024 Basic Metabolic Panel 12/26/2024 Electrocardiogram, 12 Lead Tracing-[id number] 12/26/2024 Chest PA/Lat--[id number] 12/26/2024 Next Appt Details Provider Name:EDI Salas, 01/22/2025 02:35:00 PM, [address] [place], [address], Insurance Providers Payer Name Payer Address Payer Phone Subscriber Number Group Number Insured Name Patient Relationship to Insured Coverage Start Date Coverage End Date [place] [address] [address] [place], [place] [id number] [phone] [id number] Marciano Alonso Self - patient is the insured [place] [address] [place], [place] [id number] [phone] [id number] Marciano Alonso Self - patient is the insured Medical (General) History Medical History History ICD Code COPD Sleep apnea Hypertension CHF Type 2 Diabetes GERD glaucoma Surgical History Surgery Date(Month/Year) left leg 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
--- OUTSIDE RECORDS SUMMARY | 2025-01-13 19:40 | XMS_ITS | Clinical Summary ---
Author Organization [facility] [place] [place] Address [address] [place] [address] Care Team Providers Care Digital Media Analyst Name Role Phone Cuba Solano MD Primary Care Provider [phone] Allergies Active Allergy Reactions Criticality Noted Date Comments Penicillins Rash,Unknown High 09/15/2007 Sulfa (Sulfonamide Antibiotics) Unknown 08/31 Sulfamethoxazole-Trimethoprim Rash,Unknown High 08/31 Medications doxycycline monohydrate 100 mg Oral Tab Take 100 mg by mouth daily. Active PRILOSEC 20 mg Oral CpDR Take 20 mg by mouth 1 time daily as needed Active carbamazepine (TEGRETOL) 200 mg Oral Tab Take 200 mg by mouth 2 times daily. Active GUAIFENEX DM 30-600 mg Oral Tb12 Take 30-600 mg by mouth 2 times daily. Active IRON (FERROUS SULFATE) PO Take 1 Tab by mouth daily. Active FLONASE 50 mcg/Actuation Both Nostril SpSn Administer 2 Sprays in each nostril daily. Active BACITRACIN OP 1 time daily as needed Active Artificial Tear (Gonioscopic) OP Drop 4 times daily as needed Active CUTIVATE 0.05 % Topical Crea Apply to affected area 2 times daily. Active TYLENOL EXTRA STRENGTH PO Take by mouth. Act toby TOBRADEX OP Instill 1 drop in affected eye mon/wed/fri Active PROTOPIC 0.1 % Topical Oint Apply to affected area 2 times daily. Active ELIDEL 1 % Topical Crea Apply to affected area 2 times daily. Active Tretinoin 0.1 % Topical Crea Apply to affected area. Active RESTASIS OP 1 Drop 2 times daily. Active MULTIVITAMIN Oral Tab Take 1 Tab by mouth 2 times daily. Active FIBERCON 625 mg Oral Tab Take 625 mg by mouth 2 times daily. Active cyanocobalamin (VITAMIN B-12) 1,000 mcg/mL Injection SolnIndications:Vi tamin B12 deficiency Inject 1 mL by intramuscular injection one time only for 1 dose. 1cc IM every 5 weeks 30 mL prn 02/24/20 08 Active hydrochlorothiazid e 25 mg Oral Tab Take 1 Tab by mouth daily. 30 Tab 11 03/19/20 08 Active atenolol (TENORMIN) 100 mg Oral Tab Take 1 Tab by mouth 2 times daily. 60 Tab 11 03/22/20 08 Active cyclobenzaprine (FLEXERIL) 10 mg Oral Tab Take 1 Tab by mouth 3 times daily as needed for Spasm. 90 Tab 11 03/22/20 08 Active montelukast (SINGULAIR) 10 mg Oral Tab Take 1 Tab by mouth daily. 30 Tab 11 03/22/20 08 Active salsalate (DISALCID) 500 mg Oral Tab Take 2 Tabs by mouth 2 times daily. 120 Tab 11 03/22/20 08 Active metoclopramide (REGLAN) 10 mg Oral Tab Take 1 Tab by mouth 3 times daily. to four times daily 120 Tab 11 03/22/20 08 Active FOLIC ACID 0.8 mgg Oral Tab Take 800 mcg by mouth 2 times daily. Active LANTUS 100 unit/mL subCUT Soln Inject 30 Units by subcutaneous injection daily at bedtime. Active losartan (COZAAR) 50 mg Oral Tab Take 1 Tab by mouth daily. 30 Tab 11 04/23/20 08 Active loratadine (ALLERGY RELIEF) 10 mg Oral Tab Take 1 Tab by mouth daily. 30 Tab prn 04/30/20 08 Active NEOMY SULF/POLYMYX B SULF/HC (NEOMYCIN-POLYMYXI N-HYDROCORTISONE) 3.5-10,000-1 mg-unit/mL-% OT Soln Administer 3 Drops in both ears 4 times daily. 1 Bottle 2 05/30/19 09 Active carbamazepine (TEGRETOL) 200 mg Oral Tab Take 1 Tab by mouth 2 times daily. 60 Tab 11 05/30/19 09 Active Insulin Syringe-Needle U-100 (BD INSULIN SYRINGE ULTRA-FINE) 1 mL 30 x 1/2 [place]isc [place] [facility] [place]; Combo Route) route. 100 Syringe 11 05/30/19 09 Active LISINOPRIL 40 mg Oral Tab Take 40 mg by mouth daily. Active atorvastatin (LIPITOR) 10 mg Oral TabIndications:Oth er and unspecified hyperlipidemia Take 1 Tab by mouth Daily LATE. 30 Tab 5 10/12/19 09 Active glipiZIDE (GLUCOTROL) 5 mg Oral Tab Take 2 Tabs by mouth 2 times daily. 120 Tab 11 10/13/19 09 Active sennosides (SENNA LAX) 8.6 mg Oral Tab Take 2 Tabs by mouth daily. 60 Tab 11 10/20/19 09 Active allopurinol (ZYLOPRIM) 300 mg Oral Tab Take 1 Tab by mouth daily. 30 Tab 11 01/22/20 09 Active metformin (GLUCOPHAGE) 500 mg Oral Tab Take 2 Tabs by mouth 2 times daily with meals. 120 Tab 11 01/22/20 09 Active amitriptyline (ELAVIL) 75 mg Oral Tab Take 1 Tab by mouth 2 times daily. for pain 60 Tab 11 01/22/20 09 Active gemfibrozil (LOPID) 600 mg Oral Tab Take 1 Tab by mouth 2 times daily. 60 Tab 5 03/22/20 09 Active Cholecalciferol, Vitamin D3, (VITAMIN D) 1,000 unit Oral Tab Take 1,000 Tabs by mouth daily. Active HYDROcodone-acetam inophen (NORCO) 5-325 mg Oral tablet Take 1 Tab by mouth every 6 hours. Take 1 tablet every 6 hours. Active Water Liquid 1 Gallon [place] [facility] [place]; Combo Route) route daily. Distilled water for CPAP/BiPAP. 3840 mL prn 01/20/20 14 Active bi-level machine Bilevel@ cwp with heated humidifier; Face to Face within 6 mo: yes; Length of Need: 99 mo; nasal mask with headgear q 6 mo; mask only q 3 mo;2cushions q mo; Tubing Heated No; non-heated Yes 1/ 3 mo; H20 Chamber 1/ 6 mo; chin strap/ 6 mo; filters (disp 2 / mo, perm 1 /6 mo). 1 Each 0 01/22/20 15 Active Active Problems Problem Noted Date Diagnosed Date SCHUYLER (obstructive sleep apnea) 06/06/2010 Ankle instability 04/18/2008 Perennial allergic rhinitis 01/10/2008 Amput Above Knee, Unilat (left) 12/13/2007 Vitamin B12 deficiency 12/13/2007 Essential hypertension, benign Other and unspecified hyperlipidemia Allergy, unspecified not elsewhere classified Anemia, unspecified Type II or unspecified type diabetes mellitus 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, not stated as uncontrolled Esophageal reflux Immunizations Immunization Administration Dates Next Due (PNEUMOVAX 23)(50 YRS UP) PN EUMOCOCCAL POLYSACCHARIDE (PPV23) 0.5 ML, IM 02/21/2008,07/04/2001 Influenza Seasonal Unspecifi ed Formulation IM 02/04/2009,01/31/2007,02/06/2005,02/14,04/07/2001,03/05/1999,04/08/1998 Influenza Vaccine Split 3+ Yrs IM 02/21/2008 Family History Medical History Relation Name Comments Asthma Brother 1 Breast Cancer Brother 2 Diabetes Brother 2 Hypertension Brother 2 Heart Disease Father Hypertension Mother Stroke Mother Breast Cancer Sister 1 Heart Disease Sister 1 High Cholesterol Sister 1 Hypertension Sister 1 Hypertension Sister 2 Relation Name Status Comments [...] on file Legal Sex Male 2:49 AM [employer] Gender Identity Not on file Sexual Orientation Not on file Last Filed Vital Signs Vital Sign Reading Time Taken Comments Blood Pressure 134/76 01/21/2015 9:16 AM CDT Pulse 82 01/21/2015 9:16 AM CDT Temperature 36.6 C (97.8 F) 10/11/2008 1:07 PM CDT Respiratory Rate 14 01/19/2014 9:42 AM CDT Oxygen Saturation 95% 01/21/2015 9:16 AM CDT Inhaled Oxygen Concentration - - Weight 127 kg (280 lb) 01/21/2015 9:16 AM CDT Height 182.9 cm (6') 01/21/2015 9:16 AM CDT Body Mass Index 37.97 01/21/2015 9:16 AM CDT Plan of Treatment Health Maintenance Due Date Last Done Comments DIABETES ANNUAL FOOT EXAM 07/23/1981 DIABETES ANNUAL RETINAL EXAM 07/23/1981 DTAP/TDAP/TD VACCINES (1 - Tdap) 07/23/1982 FIT-DNA Q 3 years 07/23/2008 FIT/FOBT Q 1 year 07/23/2008 DIABETES HBA1C Q 6 MONTHS 04/12/20092008, 04/16/2008, 01/10/2008, Additional history exists DIABETES MICROALBUMIN ANNUAL SCREEN 09/27/2009 09/27/2008, 04/16/2008, 04/05/2007, Additional history exists LDL CHOLESTEROL ANNUAL 09/27/2009 9, 04/16/2008, 01/10/2008, Additional history exists ZOSTER VACCINE (1 of 2) 07/23/2013 RSV VACCINE (60+ or ) (1 - Risk 60-74 years 1-dose series) 2023 INFLUENZA VACCINE (#1) 2024 9, 02/21/2008, 01/31/2007, Additional history exists Flex Sig/CT Colonography Q 5 years 01/25/20252019 COLORECTAL SCREENING 01/25/2030 01/26/2020, 10/16/2003, 02/19/1998 Colorectal Cancer Screening 01/25/2030 Procedures Procedure Name Priority Date/Time Associated Diagnosis Comments ENDOSCOPY, SIGMOID Routine 01/26/2020 HEMOGLOBIN A1C Routine 10/11/2008 1:40 PM CDT DM w/o Complication Type II (CMS/HCC) MICROALBUMIN, RANDOM URINE Routine 09/27/2008 1:30 PM CDT DM w/o Complication Type II (CMS/HCC) Essential Hypertension, Benign LIPID PANEL Routine 09/27/2008 1:30 PM CDT Other and Unspecified Hyperlipidemia from Last 3 Months or Most Recently Relevant to Health Maintenance Results * ENDOSCOPY, SIGMOID (01/26/2020) us Abstract Spg Provider GI PROCEDURE ORDERABLES Fi nal Result * (ABNORMAL) HEMOGLOBIN A1C (10/11/2008 1:40 PM CDT) HEMOGLOBIN A1C 6.9(H) 4.0 - 6.0 % [facility] Blood specimen (specimen) 10/11/2008 1:40 PM CDT 10/11/2008 1:41 PM CDT us Katie Acosta DO CHEMISTRY ORDERABLES Final Result Performing Organization Address [facility] Phone Number INTERFACE SYSTEM Refer to clinic/hospital department [facility] CLIA# [id number] [address] [place] [address] * (ABNORMAL) MICROALBUMIN, RANDOM URINE (09/27/2008 1:30 PM CDT) MICROALBUMIN, URINE 20(H) <20 MG/L [facility] Blood specimen (specimen) 09/27/2008 1:30 PM CDT 09/27/2008 1:31 PM CDT Katie Acosta DO URINE ORDERABLES Susanne l Result Performing Organization Address [facility] Phone Number INTERFACE SYSTEM Refer to clinic/hospital department [facility] CLIA# [id number] [address] [place] [address] * (ABNORMAL) LIPID PANEL (09/27/2008 1:30 PM CDT) CHOLESTEROL 196 100 - 200 MG/DL [facility] TRIGLYCERIDE 218(H) 0 - 150 MG/DL [facility] HDL 23(L) 40 - 60 MG/DL [facility] LDL CALCULATED 129(H) 58 - 100 MG/DL [facility] Comment: CALCULATED LDL REFERENCE: < 100 Optimal 100 - 129 Near Optimal 130 - 159 Borderline High > 160 High Risk CHOL/HDL RATIO 8.52(H) 3.43 - 4.97 RATIO [facility] Blood specimen (specimen) 09/27/2008 1:30 PM CDT 09/27/2008 1:31 PM CDT Katie Acosta DO CHEMISTRY ORDERABLES Final Result Performing Organization Address [facility] Phone Number INTERFACE SYSTEM Refer to clinic/hospital department [facility] CLIA# [id number] [address] [place] [address] from Last 3 Months or Most Recently Relevant to Health Maintenance Insurance MEDICARE PART A AND B [place]ICAID [place] Advance Directives For more information, please contact: [phone] Documents on File Type Date Recorded Patient Front Office Developer Expl anation Advance Directive POA 01/20/2013 8:55 AM A dvance Directive POA Care Teams Digital Media Analyst Relationship Specialty Start Date End Date Cuba Solano MD PCP - General 07/11/09
--- NOTE | 2025-01-13 20:00 | XRR_ITS ---
PROCEDURE INFORMATION: Exam: XR Chest Exam date and time: 01/13/2025 8:17 PM Age: 59 years old Clinical indication: Pain; Chest pressure; Prior surgery; Surgery date: 6+ months; Surgery type: Left shoulder; Additional info: Cp TECHNIQUE: Imaging protocol: Radiologic exam of the chest. Views: 1 view. COMPARISON: CT chest w con* [id number] 08/25/2022 1:51 PM FINDINGS: Limitations: Patient rotation. Underpenetration. Lungs: The left lung is not well evaluated. No definitive consolidation on the right. Pleural spaces: No pleural effusion or pneumothorax identified. Heart/Mediastinum: Heart size is not well evaluated. Bones/joints: No acute osseous abnormalities are seen. XR/XR chest 1V portable [id number] IMPRESSION: Markedly limited study without obvious evidence of acute cardiopulmonary disease.
[2025-01-13 20:08] LABS: Hematocrit 27.7 % (37-53); Hemoglobin 8.90 g/dL (11.27-16.99); Mean Corpuscular HGB Conc 32.1 g/dL (30-55); Mean Corpuscular Hemoglobin 28.2 pg (27-33); Mean Corpuscular Volume 87.7 fl (82-101); Nucleated Red Blood Cells % 0 %; Platelet Count 110 10^3/cmm (157-399); Red Blood Count 3.16 10^6/uL (3.85-5.65); White Blood Count 4.31 10^3/uL (3.29-11.43)
--- NOTE | 2025-01-13 20:18 | W.ED.CHESTPA ---
HPI - Chest Pain General: Chief Complaint: Chest Pain Stated Complaint: afib/ chest pain Time Seen by Provider: 01/13/25 19:34 History of Present Illness: Patient is a 59-year-old male presenting with chest pain, cough, and difficulty breathing. He reports that symptoms have been present for an unspecified period but got really bad tonight. He confirms productive cough but is unable to describe the color of his sputum. Patient reports wheezing that has worsened recently. He resides in a retirement where he has been receiving breathing treatments with some reported relief. He requires oxygen at night. Patient recently underwent a urologic procedure (cystoscopy) last Wednesday (01/10/2025) under anesthesia, for which he was prescribed a short course of antibiotics as prophylaxis due to his history of recurrent urinary tract infections. Patient also mentions having left eye redness, which appears to be a recent development, for which he uses eye drops (both daytime and nighttime). Related Data Home Medications ?Medication ?Instructions ?Recorded ?Confirmed allopurinol 300 mg tablet 300 mg PO DAILY 05/08/19 12/12/24 carboxymethylcellulose sodium 0.5 1 drop ophthalmic (eye) DAILY PRN 05/08/19 12/12/24 % eye drops (Refresh Tears) Dry Eyes cholecalciferol (vitamin D3) 25 1,000 unit PO DAILY 05/08/19 12/12/24 mcg (1,000 unit) capsule montelukast 10 mg tablet 10 mg PO DAILY 05/08/19 12/12/24 metoclopramide HCl 10 mg tablet 10 mg PO Q6H PRN 04/16/22 12/12/24 (Reglan) spironolactone 25 mg tablet 12.5 mg PO DAILY 09/18/22 12/12/24 ipratropium 0.5 mg-albuterol 3 mg 3 ml inhalation QID PRN 10/16/22 12/12/24 (2.5 mg base)/3 mL nebulization soln multivit-minerals no.60-ferrous tab PO 10/16/22 12/12/24 fumarate-folic acid 27 mg-1 mg tablet (Niva-Plus) potassium chloride 10 mEq 10 meq PO DAILY 10/16/22 12/12/24 tablet,extended release metoprolol tartrate 100 mg tablet 100 mg PO BID 12/28/23 12/12/24 amitriptyline 75 mg tablet 25 mg PO .hs 04/24/24 12/12/24 bisacodyl 10 mg rectal suppository 10 mg RI DAILY PRN 04/24/24 12/12/24 (Dulcolax (bisacodyl)) dapagliflozin propanediol 10 mg 10 mg PO DAILY 04/24/24 12/12/24 tablet esomeprazole magnesium 40 mg 40 mg PO BID 04/24/24 12/12/24 capsule,delayed release lidocaine 5 % topical patch 1 patch topical BID 04/24/24 12/12/24 magnesium hydroxide 400 mg/5 mL 5 ml PO DAILY PRN 04/24/24 12/12/24 oral suspension (Milk of Magnesia) sodium phosphates 19 gram-7 118 ml RI DAILY PRN 04/24/24 12/12/24 gram/118 mL enema (Fleet Enema) tamsulosin 0.4 mg capsule (Flomax) 0.4 mg PO BID 04/24/24 12/12/24 acetaminophen 500 mg capsule 500 mg PO Q6H PRN 09/08/24 12/12/24 budesonide 160 mcg-glycopyr 9 2 inh inhalation BID 09/08/24 12/12/24 mcg-formot 4.8 mcg/actuation HFA inhaler (Breztri Aerosphere) docusate sodium 100 mg capsule 100 mg PO BID 09/08/24 12/12/24 polyethylene glycol 3350 17 gram 17 g PO DAILY 09/08/24 12/12/24 oral powder packet sennosides 8.6 mg tablet (senna) 8.6 mg PO 09/08/24 12/12/24 tobramycin-dexamethasone 0.3 %-0.1 0.5 inch ophthalmic (eye) DAILY 09/08/24 12/12/24 % eye ointment (TobraDex) loratadine 10 mg tablet mg PO 11/07/24 12/12/24 rwtbassw-izy-dserm acid 0.4 tab PO 11/07/24 12/12/24 mg-lycopene 300 mcg-lutein 250 mcg tablet (Adults 50 Plus) semaglutide 0.25 mg or 0.5 mg (2 mg SUBCUT 11/07/24 12/12/24 mg/3 mL) subcutaneous pen injector (Ozempic) insulin glargine 100 unit/mL (3 130 unit SUBCUT QDAY 12/11/24 12/12/24 mL) subcutaneous pen (Basaglar KwikPen U-100 Insulin) insulin lispro 100 unit/mL 40 unit SUBCUT .with meals 12/11/24 12/12/24 subcutaneous pen (Admelog SoloStar U-100 Insulin lispro) midodrine 5 mg tablet mg PO BID 12/11/24 12/12/24 Previous Rx's ?Medication ?Instructions ?Recorded fluticasone propionate 50 1 spray intranasal BID #15.8 mL 07/18/19 mcg/actuation nasal spray,suspension atorvastatin 20 mg tablet 20 mg PO ONCE #30 tabs 10/30/19 hydrocodone 5 mg-acetaminophen 325 1 tab PO TID PRN pain 30 days #90 02/05/21 mg tablet tabs apixaban 5 mg tablet (Eliquis) 5 mg PO BID #180 tabs 04/06/23 amiodarone 200 mg tablet 200 mg PO DAILY #90 tabs 09/09/23 pregabalin 50 mg capsule 50 mg PO TID #90 caps 03/22/24 polyethylene glycol 3350 17 4 g PO DAILY #238 grams 11/28/24 gram/dose oral powder (Miralax) azithromycin 250 mg tablet See Rx Instructions PO .COMPLEX #6 01/14/25 (Zithromax) tabs cefdinir 300 mg capsule 300 mg PO BID 10 days #20 caps 01/14/25 Allergies Allergy/AdvReac Type Severity Reaction Status Date / Time Penicillins Allergy ALGY-Hives Verified 12/12/24 10:48 Sulfa (Sulfonamide Allergy ALGY-Hives Verified 12/12/24 10:48 Antibiotics) PFSH ED PFSH: Medical History Constipation Dry eye syndrome of unspecified lacrimal gland Unspecified glaucoma Gastro-esophageal reflux disease without esophagitis Benign prostatic hyperplasia without lower urinary tract symptoms Gout, unspecified Hyperlipidemia, unspecified 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 heart failure terminal carman (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 of 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 Muscle weakness (generalized) COPD (chronic obstructive pulmonary disease) terminal carman (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 of anticoagulants Chronic atrial fibrillation, unspecified Open wound of left lower quadrant of abdominal wall without penetration into peritoneal cavity Intertriginous dermatitis associated with moisture Morbid obesity Atrial flutter Encounter for screening colonoscopy Repeat screening colonoscopy in 10 years unless otherwise specified Chronic low back pain Chronic right shoulder pain Diabetes mellitus Shoulder pain BILATERAL Encounter for long-term use of opiate analgesic Right knee pain Amputation above knee Left Diabetes type 2, controlled Essential hypertension Dysuria-frequency syndrome Seizure BPH (benign prostatic hyperplasia) Primary osteoarthritis of both knees r knee Sleep apnea Surgical History History of left above knee amputation History of shoulder surgery 2002 x 2 L shoulder Family History Other Heart disease Hypertension Social History Smoking and tobacco/nicotine status: current some day tobacco/nicotine user smokeless tobacco Smokeless tobacco user: chewing tobacco Smokeless tobacco details: 2 cans a day Second hand smoke exposure: No Alcohol intake: never Substance/Drug Use: never Physical Exam Const: GENERAL APPEARANCE: cooperative and ill appearing (Mildly) NUTRITIONAL APPEARANCE: obese morbidly obese ORIENTATION/CONSCIOUSNESS: Yes awake, Yes oriented to person, Yes oriented to place and Yes oriented to time HENMT: COMMON NORMALS: normocephalic, atraumatic and Normal external nose present HEAD & SCALP: normocephalic and atraumatic FACE & SINUS: face symmetric NOSE: Normal external nose present Eye: COMMON NORMALS: Equal, round and reactive pupils present and EOMs intact bilaterally CONJUNCTIVA: Yes conjunctival abnormal positive left conjunctival injection and discharge PUPIL: Yes Equal, round and reactive pupils present Neck/C-Spine: GENERAL: Yes trachea midline Chest: CHEST: Yes Symmetrical chest wall rise Resp: EFFORT & INSPECTION: Yes tachypneic, Yes labored (Mild) and Yes Actively coughing AUSCULTATION: rhonchi and wheezes Cardio: COMMON NORMALS: regular rhythm RATE: tachycardic RHYTHM: regular rhythm Extremity: NARRATIVE EXTREMITY EXAM: Left amputated. Neuro: SENSORIUM/ORIENTATION: Yes oriented to person, Yes oriented to place and Yes oriented to time Course Vital Signs: Vital signs: Vital Signs Temperature 98.7 F 01/13/25 19:27 Pulse Rate 105 H 01/14/25 01:01 Respiratory Rate 25 H 01/14/25 01:01 Blood Pressure 133/78 01/14/25 01:01 Pulse Oximetry 94 01/14/25 01:01 Oxygen Delivery Me thod Room Air 01/13/25 20:23 MDM - Chest Pain Medical Decision Making The patient is mildly tachycardic. He is short of breath. He responded to breathing treatment here. He has diabetes, so steroids are not given. He denies any chest pain. Chest x-ray was non-diagnostic. He does have significant left pleural effusion with loculation on chest x-ray, CT chest. Ms BNP is not significantly elevated. His troponin did not change it to hours. Urinalysis shows some mild blood otherwise negative for infection. He was given Rocephin and Zithromax after blood cultures here. He will go back to the retirement on Cefdinir plus Zithromax, and scheduled breathing treatments for the next 48 hours. He is to return for worsening symptoms. Lab Data 01/13/25 19:20 01/13/25 19:20 Radiology Impressions Chest X-Ray 01/13/25 20:00 IMPRESSION: Markedly limited study without obvious evidence of acute cardiopulmonary disease. Chest CT 01/13/25 21:44 IMPRESSION: 1. Small left pleural effusion, likely loculated, with adjacent atelectasis. 2. Questionable soft tissue thickening in the subcutaneous fat of the left anterior inferior chest wall is likely artifactual and related to contact with the gantry. Correlate with physical exam. Laboratory Results WBC 4.31 10^3/uL (3.29-11.43) 01/13/25 19:20 RBC 3.16 10^6/uL (3.85-5.65) L 01/13/25 19:20 Hgb 8.90 g/dL (11.27-16.99) L 01/13/25 19:20 Hct 27.7 % (37-53) L 01/13/25 19:20 MCV 87.7 fl (82-101) 01/13/25 19:20 MCH 28.2 pg (27-33) 01/13/25 19:20 MCHC 32.1 g/dL (30-55) 01/13/25 19:20 RDW 17.9 % (12.1-15.1) H 01/13/25 19:20 Plt Count 110 10^3/cmm (157-399) L 01/13/25 19:20 MPV 12.0 fL (7.4-10.4) H 01/13/25 19:20 Neut % (Auto) 70.3 % 01/13/25 19:20 Lymph % (Auto) 12.3 % 01/13/25 19:20 [place] % (Auto) 12.3 % 01/13/25 19:20 Eos % (Auto) 3.5 % 01/13/25 19:20 Baso % (Auto) 0.2 % 01/13/25 19:20 Neut # (Auto) 3.03 10^3/uL (1.8-7.7) 01/13/25 19:20 Lymph # (Auto) 0.5 10^3/uL (0.8-4.8) L 01/13/25 19:20 [place] # (Auto) 0.5 10^3/uL (0.2-0.9) 01/13/25 19:20 Eos # (Auto) 0.2 10^3/uL (0.0-0.8) 01/13/25 19:20 Baso # (Auto) 0.0 10^3/uL (0.0-0.1) 01/13/25 19:20 Nucleated RBC % (auto) 0 % 01/13/25 19: Nucleated RBCs # 0.0 /100WBC 01/13/25 19:20 Specimen Type Arterial 01/13/25 20:27 Sample Site Brachial, right 01/13/25 20:27 ABG pH 7.45 (7.35-7.45) 01/13/25 20:27 ABG pCO2 29.9 mmHg (35-45) L 01/13/25 20:27 ABG pO2 62.9 mmHg (80.0-100.0) L 01/13/25 20:27 ABG HCO3 20.9 mmol/L (22-26) L 01/13/25 20:27 ABG Base Excess -2.5 mmol/L (-2.0-2.0) L 01/13/25 20:27 Dio Test N/a 01/13/25 20:27 Hematocrit 27.3 % (42-52) L 01/13/25 20:27 O2 Delivery Device Room air 01/13/25 20:27 Silk Conditioner ID [email or web address] 01/13/25 20:27 Sodium 134 mmol/L (136-145) L 01/13/25 19:20 Potassium 4.5 mmol/L (3.5-5.1) 01/13/25 19:20 Chloride 102 mmol/L (98-107) 01/13/25 19:20 Carbon Dioxide 18 mmol/L (22-29) L 01/13/25 19:20 Anion Gap 18.5 (5-19) 01/13/25 19:20 BUN 16 mg/dL (8-23) 01/13/25 19:20 Creatinine 1.0 mg/dL (0.7-1.2) 01/13/25 19:20 GFR Calculation 76.0 mL/min (90-130) L 01/13/25 19:20 Glucose 281 mg/dL (65-115) H 01/13/25 19:20 Calculated Osmolality 289 mOsm/kg (285-295) 01/13/25 19:20 Lactic Acid 2.2 mmol/L (0.5-2.2) 01/13/25 19:20 Lactic Acid (Sepsis) 1.9 mmol/L (0.5-2.2) 01/13/25 22:43 Calcium 9.1 mg/dL (8.5-10.5) 01/13/25 19:20 Total Bilirubin 1.5 mg/dL (0.15-1.2) H 01/13/25 19:20 AST 64 U/L (0-40) H 01/13/25 19:20 ALT 29 U/L (0-41) 01/13/25 19:20 Alkaline Phosphatase 119 U/L (40-130) 01/13/25 19:20 Troponin T Baseline 48 ng/L (0-15) H 01/13/25 19:20 Troponin T 120 Minute 43.82 ng/L (0-15) H 01/13/25 22:20 Delta Troponin T -4.18 ABS# (0-10) L 01/13/25 22:20 C-Reactive Protein 11.7 mg/L (0.0-4.9) H 01/13/25 19:20 NT-Pro-B Natriuret Pep 738 pg/mL (0-125) H 01/13/25 19:20 Total Protein 6.1 g/dL (6.6-8.7) L 01/13/25 19:20 Albumin 3.2 g/dL (3.5-5.2) L 01/13/25 19:20 Globulin 2.9 g/dL (1.3-4.6) 01/13/25 19:20 Urine Color Yellow (Yellow) 01/13/25 20:48 Urine Appearance Clear (CLEAR) 01/13/25 20:48 Urine pH 6.0 (5-7) 01/13/25 20:48 Ur Specific [place] 1.012 (1.005-1.030) 01/13/25 20:48 Urine Protein Trace (Negative) A 01/13/25 20:48 Urine Glucose (UA) Negative (Normal) 01/13/25 20:48 Urine Ketones Negative (Negative) 01/13/25 20:48 Urine Blood 2+ (Negative) A 01/13/25 20:48 Urine Nitrate Negative (Negative) 01/13/25 20:48 Urine Bilirubin Negative (Negative) 01/13/25 20:48 Urine Urobilinogen 1.0 mg/dL (Negative) 01/13/25 20:48 Ur Leukocyte Esterase Trace (Negative) A 01/13/25 20:48 Urine RBC 21-50 /hpf (0-2) H 01/13/25 20:48 Urine WBC 0-5 /hpf (0-5) 01/13/25 20:48 Ur Squamous Epith Cells 0-5 /hpf (0-5) 01/13/25 20:48 Amorphous Sediment Not Reportable 01/13/25 20:48 Urine Bacteria None seen /hpf (NONE) 01/13/25 20:48 Hyaline Casts 0-4 /lpf H 01/13/25 20:48 Influenza A (PCR) Negative (Negative) 01/13/25 20:09 Influenza Type B (PCR) Negative (Negative) 01/13/25 20:09 RSV (PCR) Negative (Negative) 01/13/25 20:09 SARS-CoV-2 (PCR) Negative (Negative) 01/13/25 20:09 All radiology interpretation(s) finalized by discharge Discharge Plan Discharge Patient Disposition: Home Clinical Impression: Pleural effusion Pneumonia Qualifiers: Laterality: right Lung location: lower lobe of lung Condition: Stable Prescriptions: New cefdinir 300 mg capsule 300 mg PO BID 10 Days Qty: 20 0RF azithromycin [Zithromax] 250 mg tablet See Rx Instructions .ROUTE .COMPLEX Qty: 6 0RF Rx Instructions: For 250 mg dose pack: take 500 mg today (day 1), then 250 mg for 4 days (days 2-5) No Action montelukast 10 mg tablet 10 mg PO DAILY allopurinol 300 mg tablet 300 mg PO DAILY Refresh Tears 0.5 % drops 1 drop ophthalmic (eye) DAILY PRN (Reason: Dry Eyes) cholecalciferol (vitamin D3) 1,000 unit capsule 1,000 unit PO DAILY tamsulosin [Flomax] 0.4 mg capsule 0.4 mg PO BID hydrocodone-acetaminophen 5-325 mg tablet 1 tab PO TID PRN (Reason: pain) 30 Days Qty: 90 0RF Rx Instructions: fill on or after 02/14/21 lidocaine HCl [Lidocaine Viscous] 2 % solution 1 applic topical ONCE Qty: 1 0RF magnesium hydroxide [Milk of Magnesia] 400 mg/5 mL suspension 5 ml PO DAILY PRN bisacodyl [Dulcolax (bisacodyl)] 10 mg suppository 10 mg RI DAILY PRN Fleet Enema 19-7 gram/118 mL enema 118 ml RI DAILY PRN lidocaine HCl [Lidocaine Viscous] 2 % solution 1 applic topical ONCE Qty: 1 0RF lidocaine HCl [Lidocaine Viscous] 2 % solution 1 applic topical ONCE Qty: 1 0RF loratadine 10 mg tablet PO Adults 50 Plus 0.4 mg-300 mcg- 250 mcg tablet PO Ozempic 0.25 mg or 0.5 mg (2 mg/3 mL) pen injector SUBCUT metoclopramide HCl [Reglan] 10 mg tablet 10 mg PO Q6H PRN amitriptyline 75 mg tablet 25 mg PO .hs Niva-Plus 27 mg iron- 1 mg tablet PO ipratropium-albuterol 0.5 mg-3 mg(2.5 mg base)/3 mL solution for nebulization 3 ml inhalation QID PRN potassium chloride 10 mEq tablet extended release 10 meq PO DAILY metoprolol tartrate 100 mg tablet 100 mg PO BID lidocaine 5 % adhesive patch,medicated 1 patch topical BID Rx Instructions: leave on most painful area for up to 12 hrs dapagliflozin propanediol 10 mg tablet 10 mg PO DAILY esomeprazole magnesium 40 mg capsule,delayed release(DR/EC) 40 mg PO BID sennosides [senna] 8.6 mg tablet 8.6 mg PO polyethylene glycol 3350 17 gram powder in packet 17 g PO DAILY TobraDex 0.3-0.1 % ointment 0.5 inch ophthalmic (eye) DAILY Rx Instructions: hs docusate sodium 100 mg capsule 100 mg PO BID acetaminophen 500 mg capsule 500 mg PO Q6H PRN Breztri Aerosphere 160-9-4.8 mcg/actuation HFA aerosol inhaler 2 inh inhalation BID insulin glargine [Basaglar KwikPen U-100 Insulin] 100 unit/mL (3 mL) insulin pen 130 unit SUBCUT QDAY Rx Instructions: hs insulin lispro [Admelog SoloStar U-100 Insulin] 100 unit/mL insulin pen 40 unit SUBCUT .with meals midodrine 5 mg tablet PO BID polyethylene glycol 3350 [Miralax] 17 gram/dose powder 4 g PO DAILY Qty: 238 0RF fluticasone propionate 50 mcg/actuation spray,suspension 1 spray INTRANASAL BID Qty: 15.8 6RF atorvastatin 20 mg tablet 20 mg PO ONCE Qty: 30 11RF spironolactone 25 mg tablet 12.5 mg PO DAILY Eliquis 5 mg tablet 5 mg PO BID Qty: 180 3RF amiodarone 200 mg tablet 200 mg PO DAILY Qty: 90 3RF pregabalin 50 mg capsule 50 mg PO TID Qty: 90 5RF Discharge Orders: Discharge ED (Routine); Ordered 01/14/25 Ordered By: Dwayne Pierre Referrals: Chris Parker DO [Primary Care Provider, Internal Medicine] - 1-3 days Patient Instructions: Pneumonia (ED), Opioid Safety, Pain Management, Pleural Effusion, Patient Portal & Neeraj Instructions Activity Restrictions/Additional Instructions: Schedule breathing treatments every 6 hours while awake for the first 48 hours, then as needed following that. Antibiotics as directed. Return for worsening shortness of breath despite treatment, fever despite 3-4 doses of antibiotics, mental status changes, other concerning symptoms. See your doctor next week. Print Language: Ghanaian Coding Level of Care Code ED Russet Repairer for Jeronimo Enamorado
[2025-01-13 20:35] LABS: Troponin(5th) Baseline 48 ng/L (0-15)
[2025-01-13 20:37] LABS: ABG PCO2 29.9 mmHg (35-45); ABG PH Result 7.45 (7.35-7.45); Arterial Blood Gas Hematocrit 27.3 % (42-52); Blood Gas Sample Site Brachial, right; Blood Gas Sample Type Arterial; HCO3 ABG 20.9 mmol/L (22-26); PO2 ABG 62.9 mmHg (80.0-100.0)
[2025-01-13 20:42] LABS: Alanine Aminotransferase 29 U/L (0-41); Albumin Level 3.2 g/dL (3.5-5.2); Alkaline Phosphatase 119 U/L (40-130); Anion Gap 18.5 (5-19); Aspartate Amino Transferase 64 U/L (0-40); Blood Urea Nitrogen 16 mg/dL (8-23); Calcium 9.1 mg/dL (8.5-10.5); Carbon Dioxide 18 mmol/L (22-29); Chloride 102 mmol/L (98-107); Creatinine Clr Calc Pharmacy 116.6229; Globulin 2.9 g/dL (1.3-4.6); Glucose 281 mg/dL (65-115); NT Pro B Type Natriuretic Pept 738 pg/mL (0-125); Osmolality Calculated 289 mOsm/kg (285-295); Potassium 4.5 mmol/L (3.5-5.1); Sodium 134 mmol/L (136-145); Total Protein 6.1 g/dL (6.6-8.7)
[2025-01-13 20:53] LABS: Respiratory Syncytial Virus Ce NEGATIVE (Negative); SARS-CoV-2 PCR NEGATIVE (Negative)
[2025-01-13 20:55] LABS: Glucose Urine UA Negative (Normal); Nitrate Urine Negative (Negative); Specific Gravity, Urine 1.012 (1.005-1.030)
[2025-01-13 20:58] LABS: Add Urine Microscopic? YES
[2025-01-13 21:01] LABS: UA Slide Review UA Slide Review Perf
--- NOTE | 2025-01-13 21:44 | CTR_ITS ---
PROCEDURE INFORMATION: Exam: CT Chest With Contrast; Diagnostic Exam date and time: 01/13/2025 10:04 PM Age: 59 years old Clinical indication: Cough and fever and shortness of breath; Cough with SOB and fever; Additional info: Fever cough SOB TECHNIQUE: Imaging protocol: Diagnostic computed tomography of the chest with contrast. Radiation optimization: All CT scans at this facility use at least one of these dose optimization techniques: automated exposure control; mA and/or kV adjustment per patient size (includes targeted exams where dose is matched to clinical indication); or iterative reconstruction. Contrast material: OMNI 350; Contrast volume: 100 ml; Contrast route: INTRAVENOUS (IV); COMPARISON: CT chest w con* [id number] 08/25/2022 1:51 PM RADIATION DOSE METRICS: Total DLP (mGy-cm): 1048.25 FINDINGS: Limitations: Patient positioning. Patient's left-side is abutting the gantry causing significant artifact. Lungs: No pulmonary consolidation. Left basilar atelectasis. No pulmonary mass or suspicious pulmonary nodule. Pleural spaces: Small left pleural effusion, likely loculated. No right pleural effusion. No pneumothorax. Heart: Heart size is within normal limits. Trace pericardial fluid may be physiologic. Coronary arteries: Moderate coronary artery calcification. Lymph nodes: No enlarged lymph nodes are identified. Vasculature: Atherosclerotic calcifications of the aorta are present. No aneurysm is identified. Bones/joints: No acute osseous abnormalities are seen. Soft tissues: Questionable soft tissue thickening in the subcutaneous fat of the left anterior inferior chest wall is likely artifactual and related to contact with the gantry. CT/CT chest w con* [id number] IMPRESSION: 1. Small left pleural effusion, likely loculated, with adjacent atelectasis. 2. Questionable soft tissue thickening in the subcutaneous fat of the left anterior inferior chest wall is likely artifactual and related to contact with the gantry. Correlate with physical exam.
[2025-01-13] MEDS: iohexol 350 mg/mL 500 mL Btl (per mL) IV (22:06)
[2025-01-13 22:24] LABS: Lactic Sepsis W/Reflex 2.2 mmol/L (0.5-2.2)
[2025-01-13 22:27] LABS: Reflex Lactate Order REFLEX LACTIC ORDERD
--- NOTE | 2025-01-13 22:30 | ECG_ITS ---
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 Measurements Intervals [place] Rate: 111 P: 0 TX: 0 QRS: -60 QRSD: 140 T: 134 QT: 411 QTc: 560 Interpretive Statements ATRIAL FLUTTER/TACHYCARDIA WITH RAPID VENTRICULAR RESPONSE LEFT AXIS DEVIATION [QRS AXIS < -30] INTRAVENTRICULAR CONDUCTION DELAY [130+ ms QRS DURATION] SEPTAL AND ANTEROLATERAL MYOCARDIAL INFARCTION , OF INDETERMINATE AGE [40+ ms Q WAVE IN V1/V2] Compared to ECG 04/26/2022 20:08:15 NO SIGNIFICANT CHANGE Electronically Signed On 01-14-2025 20:31:12 CDT by Parvez De Anda M.D. [email or web address]
[2025-01-13] MEDS: cefTRIAXone 1,000 mg SDV 1000 MG IVP (22:44)
[2025-01-13 22:57] LABS: Troponin 5 2HR 43.82 ng/L (0-15)
[2025-01-13 23:13] LABS: Troponin 5 2HR Delta -4.18 ABS# (0-10)
[2025-01-13 23:23] LABS: Lactic Acid level (Lactate) 1.9 mmol/L (0.5-2.2)
[2025-01-14] VITALS: BP 109/57; PULSE 113; RESP 25; O2SAT 93
[2025-01-14 00:15] VITALS: BP 113/57; PULSE 113; RESP 22; O2SAT 94
[2025-01-14 01:01] VITALS: BP 133/78; PULSE 105; RESP 25; O2SAT 94
== END 2025-01-14 01:05 | disposition home or self-care (01) ==
PROVIDERS: Emergency Provider Emergency Medicine; PCP Internal Medicine
DX: J90 Pleural effusion, not elsewhere classified (principal); J18.9 Pneumonia, unspecified organism; Z11.52 Encounter for screening for COVID-19; Z79.4 Long term (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 of insulin; Z79.01 Long term (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 of anticoagulants; F17.220 Nicotine dependence, chewing tobacco, uncomplicated; E78.5 Hyperlipidemia, unspecified; E11.9 Type 2 diabetes mellitus without complications; I11.0 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 heart disease with heart failure; I50.9 Heart failure, unspecified; J44.9 Chronic obstructive pulmonary disease, unspecified
CPT/HCPCS: 36415; 36600; 71045; 71260; 80053; 81001; 82803; 83605; 83880; 84484; 85025; 86140; 87040; 87086; 87637; 93005; 94640; 96374; 99285; J0696; J9999; Q0144

== ENCOUNTER 2025-01-15 08:32 | Oncology outpatient (recurring) (ONCR) | payer MEDICARE, MEDICAID, SELFPAY | END 2025-01-30 23:59 | disposition home or self-care (01) | PROVIDERS: PCP Internal Medicine; Visit Provider Internal Medicine Medical Oncology | DX: D61.818 Other pancytopenia (principal); F17.220 Nicotine dependence, chewing tobacco, uncomplicated; R16.2 Hepatomegaly with splenomegaly, not elsewhere classified; R03.0 Elevated blood-pressure reading, without diagnosis of hypertension | CPT/HCPCS: 99214 ==

== ENCOUNTER 2025-01-21 20:30 | Emergency (ER) | payer MEDICARE, MEDICAID, SELFPAY ==
--- OUTSIDE RECORDS SUMMARY | 2025-01-03 01:00 | XMS_ITS ---
Author Organization [facility], [facility] Address [address] [facility] [place] [address] Care Team Providers Care Liquid Sugar Melter Name Role Phone EDI DILL [phone] REASON FOR VISIT Cystoscopy @ MAIN OR (Charity Lift) Encounters Encounter Location Date Provider Diagnosis [facility], [facility] [address] [place] [facility] [place] [address] 01/03/2025 EDI FUENTES Plan Of Treatment Next Appt Details Provider Name:EDI RAM Josue, 01/22/2025 02:35:00 PM, [address] [place], [address], Progress Notes * Marciano REYES LDOB: 4 (59 yo M)Acc No.[id number]:01/03/2025 Patient: Marciano HEDRICK Provider: Tram DILL MD :1965 A ge:59 Y S ex:Male Date:01/03/2025 Address:[address], [place] * Billing Information: * Visit Code: * Procedure Codes: * Electronic signature of AUST IN MD FUENTES on 01/21/2025 at 08:35 PM CDT Sign off status: Pending * Provider: Tram DILL MD Date: 01/03/2025 Generated for Miles silva/Poonam/eTransmitting on: 0 01/21/2025 08:35 PM CDT
--- OUTSIDE RECORDS SUMMARY | 2025-01-17 04:12 | XMS_ITS ---
Author Organization [facility] Address [address] [place] [address] Care Team Providers Care Edge Sander Name Role Phone EDI DILL Unavailable [phone] Allergies Allergen (clinical drug ingredient) Drug/Non Drug Allergy documented on EMR Reaction Allergy Type Onset Date Status Substance with sulfonamide structure and antibacterial mechanism of action (substance) Sulfa drugs (uncoded) Unknown Allergy Active Substance with penicillin structure and antibacterial mechanism of action (substance) Penicillins Unknown Drug Allergy Active REASON FOR VISIT Other Medications Medication SIG (Take, Route, Frequency, Duration) Notes Start Date End Date Status oxyBUTYnin Chloride ER 5 MG 1 tablet Orally Once a day; Duration: 30 days 01/17/2025 02/16/2025 Active Encounters Encounter Location Date Provider Diagnosis DO NOT USE THIS FACILITY [facility] [address] [place], [place] [id number] 01/17/2025 EDI DILL Plan Of Treatment Medication Medication Name Sig Start Date Stop Date Notes oxyBUTYnin Chloride ER 5 MG 1 tablet Ora lly Once a day; Duration: 30 days 01/17/2025 02/16/2025 Next Appt Details Provider Name:DEI Salas, 01/22/2025 02:35:00 PM, [address] [place], [address], Progress Notes * Marciano REYES LDOB: 4 (59 yo M)Acc No.[id number]:01/17/2025 Patient: Marciano HEDRICK :1965 A ge:59 Y S ex:Male Address:[address], [facility] [place], [address] * Refills Start oxyBUTYnin Chloride ER Tablet Extended Release 24 Hour, 5 MG, Orally, 30 Tablet, 1 tablet, Once a day, 30 days, Refills=0 Subjective: * Chief Complaints: * O ther * Medical History: * Surgical History: * Hospitalization/Major Diagno stic Procedure: * Medications: * Allergies: P enicillinsSulfa drugsno[Allergies Verified] Objective: * Vitals: * Physical Examination: Assessment: Plan: * Treatment: * Procedure Codes: * true * Date: Generated for Miles silva/Poonam/Emiliano on: 0 01/21/2025 08:39 PM CDT
[2025-01-21] VITALS (7 sets, daily range): BP systolic 129–158; BP diastolic 66–99; PULSE 110–118; RESP 18; TEMP 37.2; O2SAT 95–100; BMI 47.8
--- OUTSIDE RECORDS SUMMARY | 2025-01-21 20:34 | XMS_ITS | Encounter Summary ---
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
--- OUTSIDE RECORDS SUMMARY | 2025-01-21 20:34 | XMS_ITS | Encounter Summary ---
Author Organization [facility] Address [address] [place] [address] Care Team Providers Care Feed Mill Tender Name Role Phone Cuba Solano MD Primary Care Provider [phone] Encounter Details Date Type Department Care Team (Latest Contact Info) Description 11/30/2006 Outpatient Historical [facility] Family Medicine [place] [id number] [address] Keyona Mccloud, LUCIEN NO ADDRESS ON FILE Unspecified Otitis Media (Primary Dx); DM w/o Complication Type II (CMS/HCC); Asymptomatic Varicose Veins Social History Tobacco Use Types Packs/Day Years Used Date Smoking Tobacco: Never Assessed Sex and Gender Information Value Date Recorded Sex Assigned at Not on file 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
--- OUTSIDE RECORDS SUMMARY | 2025-01-21 20:34 | XMS_ITS | Encounter Summary ---
Author Organization [facility] Address [address] [place] [address] Care Team Providers Care Manager Personnel Selection Name Role Phone Cuba Solano MD Primary Care Provider +1 [phone] Encounter Details Date Type Department Care Team (Late st Contact Info) Description 03/19/2008 Outpatient Historical [facility] Keyona Mccloud, NURSE INFECTION CONTROL NO ADDRESS ON FILE Social History Tobacco Use Types Packs/Day Years Used Date Smoking Tobacco: Never Assessed Cigarettes Smokeless Tobacco: Current Chew Alcohol Use Standard Drinks/Week Comments No 0 (1 standard drink = 0.6 oz pur e alcohol) Sex and Gender Information Value Date Recorded Sex Assigned at Not on file Legal Sex Male 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
--- OUTSIDE RECORDS SUMMARY | 2025-01-21 20:34 | XMS_ITS | Encounter Summary ---
Author Organization [facility] Address [address] [place] [address] Care Team Providers Care Poultry Farmer Name Role Phone Cuba Solano MD Primary Care Provider +1 [phone] Encounter Details Date Type Department Care Team (Late st Contact Info) Description 03/01/2008 Outpatient Historical [facility] E [address] [place] [address] Kvng Kilpatrick MD NO ADDRESS ON FILE Social History Tobacco Use Types Packs/Day Years Used Date Smoking Tobacco: Never Assessed Cigarettes Smokeless Tobacco: Current Chew Alcohol Use Standard Drinks/Week Comments No 0 (1 standard drink = 0.6 oz pur e alcohol) Sex and Gender Information Value Date Recorded Sex Assigned at Not on file Legal Sex Male 2: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
--- OUTSIDE RECORDS SUMMARY | 2025-01-21 20:34 | XMS_ITS | Encounter Summary ---
Author Organization [facility] Address [address] [place] [address] Care Team Providers Care Signal Constructor Name Role Phone Cuba Solano MD Primary Care Provider +1 [phone] Encounter Details Date Type Department Care Team (Late st Contact Info) Description 04/10/2008 Outpatient Historical [facility] E [address] [place] [address] Per Perea NP [address] [place] [address] Social History Tobacco Use Types Packs/Day Years Used Date Smoking Tobacco: Never Assessed Cigarettes Smokeless Tobacco: Current Chew Alcohol Use Standard Drinks/Week Comments No 0 (1 standard drink = 0.6 oz pur e alcohol) Sex and Gender Information Value Date Recorded Sex Assigned at Not on file Legal Sex Male 2:49 AM OPTICAL ENGINEER Gender Identity Not on file Sexual Orientation Not on file documented as of this encounter Plan of Treatment Not on file documented as of this encounter Visit Diagnoses Not on filedocumented in this encounter Care Teams Signal Constructor Relationship Specialty Start Date End Date Cuba Solano MD PCP - General 07/11/09 documented as of this encounter
--- OUTSIDE RECORDS SUMMARY | 2025-01-21 20:34 | XMS_ITS | Encounter Summary ---
Author Organization [facility] Address [address] [place] [address] Care Team Providers Care Curriculum And Instruction Director Name Role Phone Cuba Solano MD Primary Care Provider +1 [phone] Encounter Details Date Type Department Care Team (Late st Contact Info) Description 02/24/2008 Outpatient Historical [facility] Kvng Kilpatrick MD NO ADDRESS ON FILE Social History Tobacco Use Types Packs/Day Years Used Date Smoking Tobacco: Never Assessed Cigarettes Smokeless Tobacco: Current Chew Alcohol Use Standard Drinks/Week Comments No 0 (1 standard drink = 0.6 oz pur e alcohol) Sex and Gender Information Value Date Recorded Sex Assigned at Not on file Legal Sex Male 2:49 AM SHOE TURNER Gender Identity Not on file Sexual Orientation Not on file documented as of this encounter Plan of Treatment Not on file documented as of this encounter Visit Diagnoses Not on filedocumented in this encounter Care Teams Curriculum And Instruction Director Relationship Specialty Start Date End Date Cuba Solano MD PCP - General 07/11/09 documented as of this encounter
--- OUTSIDE RECORDS SUMMARY | 2025-01-21 20:34 | XMS_ITS | Encounter Summary ---
Author Organization [facility] Address [address] [place] [address] Care Team Providers Care Electro Optical Engineer Name Role Phone Cuba Solano MD Primary Care Provider +1 [phone] Encounter Details Date Type Department Care Team (Late st Contact Info) Description 03/02/2008 Outpatient Historical [facility] [address] [place] [address] Kvng Kilpatrick MD NO ADDRESS ON FILE Social History Tobacco Use Types Packs/Day Years Used Date Smoking Tobacco: Never Assessed Cigarettes Smokeless Tobacco: Current Chew Alcohol Use Standard Drinks/Week Comments No 0 (1 standard drink = 0.6 oz pur e alcohol) Sex and Gender Information Value Date Recorded Sex Assigned at Not on file Legal Sex Male 2:49 AM POLICE LIEUTENANT Gender Identity Not on file Sexual Orientation Not on file documented as of this encounter Plan of Treatment Not on file documented as of this encounter Visit Diagnoses Not on filedocumented in this encounter Care Teams Electro Optical Engineer Relationship Specialty Start Date End Date Cuba Solano MD PCP - General 07/11/09 documented as of this encounter
--- OUTSIDE RECORDS SUMMARY | 2025-01-21 20:34 | XMS_ITS | Encounter Summary ---
Author Organization [facility] Address [address] [place] [address] Care Team Providers Care Ticket Speculator Name Role Phone Cuba Solano MD Primary Care Provider +1 [phone] Encounter Details Date Type Department Care Team (Latest Contact Info) Description 05/11/2007 Outpatient Historical [facility] [address] [place] [address] Keyona Mccloud, LUCIEN NO ADDRESS ON FILE DM w/o Complication Type II, Uncontrolled Social History Tobacco Use Types Packs/Day Years Used Date Smoking Tobacco: Never Assessed Sex and Gender Information Value Date Recorded Sex Assigned at Not on file Legal Sex Male 2:49 AM C WPF DEVELOPER Gender Identity Not on file Sexual Orientation Not on file documented as of this encounter Plan of Treatment Not on file documented as of this encounter Visit Diagnoses Diagnosis Type II or unspecified type diabetes mellitus 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, uncontrolled documented in this encounter Care Teams Ticket Speculator Relationship Specialty Start Date End Date Cuba Solano MD PCP - General 07/11/09 documented as of this encounter
--- OUTSIDE RECORDS SUMMARY | 2025-01-21 20:34 | XMS_ITS | Encounter Summary ---
Author Organization [facility] Address [address] [place] [address] Care Team Providers Care Personalized Living Assistant Name Role Phone Cuba Solano MD Primary Care Provider +1 [phone] Encounter Details Date Type Department Care Team (Latest Contact Info) Description 09/06/2006 [facility] 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
--- OUTSIDE RECORDS SUMMARY | 2025-01-21 20:34 | XMS_ITS | Encounter Summary ---
Author Organization [facility] Address [address] [place] [address] Care Team Providers Care Game Advisor Name Role Phone Cuba Solano MD Primary Care Provider +1 [phone] Encounter Details Date Type Department Care Team [...] file Legal Sex Male 2:49 AM SUPERVISOR GEAR REPAIR Gender Identity Not on file Sexual Orientation Not on file documented as of this encounter Plan of Treatment Not on file documented as of this encounter Visit Diagnoses Not on filedocumented in this encounter Care Teams Game Advisor Relationship Specialty Start Date End Date Cuba Solano MD PCP - General 07/11/09 documented as of this encounter
--- OUTSIDE RECORDS SUMMARY | 2025-01-21 20:34 | XMS_ITS | Encounter Summary ---
Author Organization [facility] Address [address] [place] [address] Care Team Providers Care Brooch And Bracelet Maker Name Role Phone Cuba Solano MD Primary Care Provider +1 [phone] Encounter Details Date Type Department Care Team (Latest Contact Info) Description 11/12/2006 Outpatient Historical [facility] Family Medicine [place] [address] [address] Keyona Mccloud, LUCIEN NO ADDRESS ON FILE Pain in Limb (Primary Dx) Social History Tobacco Use Types Packs/Day Years Used Date Smoking Tobacco: Never Assessed Sex and Gender Information Value Date Recorded Sex Assigned at Not on file Legal Sex Male 2: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
--- OUTSIDE RECORDS SUMMARY | 2025-01-21 20:35 | XMS_ITS | Encounter Summary ---
Author Organization [facility] Address [address] [place] [address] Care Team Providers Care Paper Stacker Name Role Phone Cuba Solano MD Primary Care Provider +1 [phone] Encounter Details Date Type Department Care Team (Late st Contact Info) Description 06/20/2007 Outpatient Historical [facility] Other, [facility] NO ADDRESS ON FILE Social History Tobacco Use Types Packs/Day Years Used Date Smoking Tobacco: Never Assessed Sex and Gender Information Value Date Recorded Sex Assigned at Not on file Legal Sex Male 2:49 AM REPAIRER AND CHECKER Gender Identity Not on file Sexual Orientation Not on file documented as of this encounter Plan of Treatment Not on file documented as of this encounter Visit Diagnoses Not on filedocumented in this encounter Care Teams Paper Stacker Relationship Specialty Start Date End Date Cuba Solano MD PCP - General 07/11/09 documented as of this encounter
--- OUTSIDE RECORDS SUMMARY | 2025-01-21 20:35 | XMS_ITS | Encounter Summary ---
Author Organization [facility] Address [address] [place] [address] Care Team Providers Care Geophysical Prospector Name Role Phone Cuba Solano MD Primary Care Provider +1 [phone] Encounter Details Date Type Department Care Team [...] on file Legal Sex Male 2:49 AM BOTTOM POLISHER Gender Identity Not on file Sexual Orientation Not on file documented as of this encounter Plan of Treatment Not on file documented as of this encounter Visit Diagnoses Not on filedocumented in this encounter Care Teams Geophysical Prospector Relationship Specialty Start Date End Date Cuba Solano MD PCP - General 07/11/09 documented as of this encounter
--- OUTSIDE RECORDS SUMMARY | 2025-01-21 20:35 | XMS_ITS | Encounter Summary ---
Author Organization [facility] Address [address] [place] [address] Care Team Providers Care Cadmium Plater Name Role Phone Cuba Solano MD Primary Care Provider +1 [phone] Encounter Details Date Type Department Care Team (Latest Contact Info) Description 12/30/2006 Outpatient Historical [facility] Family Medicine [place] [address] [address] Keyona Mccloud FNP NO ADDRESS ON FILE DM w/o Complication Type II (CMS/[facility]) (Primary Dx); Allergy, Unspecified not Elsewhere Classified; Unspecified Otitis Media; Neuropathy in Diabetes Social History Tobacco Use Types Packs/Day Years Used Date Smoking Tobacco: Never Assessed Sex and Gender Information Value Date Recorded Sex Assigned at Not on file Legal Sex Male 2:49 AM LEASE BROKER Gender Identity Not on file Sexual Orientation [...] diabetes documented in this encounter Care Teams Cadmium Plater Relationship Specialty Start Date End Date Cuba Solano MD PCP - General 07/11/09 documented as of this encounter
--- OUTSIDE RECORDS SUMMARY | 2025-01-21 20:35 | XMS_ITS | Encounter Summary ---
Author Organization [facility] Address [address] [place] [address] Care Team Providers Care Chiropractic Physician Name Role Phone Cuba Solano MD Primary Care Provider +1 [phone] Encounter Details Date Type Department Care Team (Late st Contact Info) Description 05/31/2007 Outpatient Historical [facility] Family Medicine [place] [address] [address] Keyona Mccloud, COMPOUND MIXER NO ADDRESS ON FILE Social History Tobacco Use Types Packs/Day Years Used Date Smoking Tobacco: Never Assessed Sex and Gender Information Value Date Recorded Sex Assigned at Not on file Legal Sex Male 2:49 AM CONTROL ROOM SUPERVISOR Gender Identity Not on file Sexual Orientation Not on file documented as of this encounter Plan of Treatment Not on file documented as of this encounter Visit Diagnoses Not on filedocumented in this encounter Care Teams Chiropractic Physician Relationship Specialty Start Date End Date Cuba Solano MD PCP - General 07/11/09 documented as of this encounter
--- OUTSIDE RECORDS SUMMARY | 2025-01-21 20:35 | XMS_ITS | Encounter Summary ---
Author Organization [facility] Address [address] [place] [address] Care Team Providers Care Senior Security Engineer Name Role Phone Cuba Solano MD Primary Care Provider +1 [phone] Encounter Details Date Type Department Care Team (Late st Contact Info) Description 02/07/2008 Outpatient Historical [facility] [address] [place] [address] Per Perea NP [address] [place] [address] Social History Tobacco Use Types Packs/Day Years Used Date Smoking Tobacco: Never Assessed Cigarettes Smokeless Tobacco: Current Chew Alcohol Use Standard Drinks/Week Comments No 0 (1 standard drink = 0.6 oz pur e alcohol) Sex and Gender Information Value Date Recorded Sex Assigned at Not on file Legal Sex Male 2:49 AM DIRECTOR COMMERCIAL SALES Gender Identity Not on file Sexual Orientation Not on file documented as of this encounter Plan of Treatment Not on file documented as of this encounter Visit Diagnoses Not on filedocumented in this encounter Care Teams Senior Security Engineer Relationship Specialty Start Date End Date Cuba Solano MD PCP - General 07/11/09 documented as of this encounter
--- OUTSIDE RECORDS SUMMARY | 2025-01-21 20:35 | XMS_ITS | Encounter Summary ---
Author Organization [facility] Address [address] [place] [address] Care Team Providers Care Training And Development Rep Name Role Phone Cuba Solano MD Primary Care Provider +1 -[phone] Encounter Details Date Type Department Care Team (Late st Contact Info) Description 04/05/2007 Outpatient Historical [facility] Family Medicine [place] [address] [address] Keyona Mccloud, NURSING HOME ASSISTANT NO ADDRESS ON FILE Social History Tobacco Use Types Packs/Day Years Used Date Smoking Tobacco: Never Assessed Sex and Gender Information Value Date Recorded Sex Assigned at Not on file Legal Sex Male 2:49 AM POLICE AND FIRE DISPATCHER Gender Identity Not on file Sexual Orientation Not on file documented as of this encounter Plan of Treatment Not on file documented as of this encounter Visit Diagnoses Not on filedocumented in this encounter Care Teams Training And Development Rep Relationship Specialty Start Date End Date Cuba Solano MD PCP - General 07/11/09 documented as of this encounter
--- OUTSIDE RECORDS SUMMARY | 2025-01-21 20:35 | XMS_ITS | Encounter Summary ---
Author Organization [facility] Address [address] [place] [address] Care Team Providers Care Managed Care Coordinator Name Role Phone Cuba Solano MD Primary Care Provider +1 [phone] Encounter Details Date Type Department Care Team (Late st Contact Info) Description 06/20/2007 Outpatient Historical [facility] Family Medicine [place] [address] [address] Keyona Mccloud, SECURITY OPERATIONS ANALYST NO ADDRESS ON FILE Social History Tobacco Use Types Packs/Day Years Used Date Smoking Tobacco: Never Assessed Sex and Gender Information Value Date Recorded Sex Assigned at Not on file Legal Sex Male 2:49 AM 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
--- OUTSIDE RECORDS SUMMARY | 2025-01-21 20:35 | XMS_ITS | Clinical Summary ---
Author Organization [facility] Address [address] [place]: [place] [address] Care Team Providers Care Reptile Keeper Name Role Phone Cuba Solano MD Primary Care Provider +1 [phone] Allergies Active Allergy Reactions Criticality Noted Date [...] on file Legal Sex Male 5:38 AM POLICE LIEUTENANT PATROL Gender Identity Not on file Sexual Orientation [...] Recently Relevant to Health Maintenance Care Teams Reptile Keeper Relationship Specialty Start Date End Date Cuba Solano MD PCP - General 07/11/09
--- OUTSIDE RECORDS SUMMARY | 2025-01-21 20:35 | XMS_ITS | Encounter Summary ---
Author Organization [facility] Address [address] [place] [address] Care Team Providers Care Floatlight Loading Supervisor Name Role Phone Cuba Solano MD Primary Care Provider +1 [phone] Encounter Details Date Type Department Care Team (Late st Contact Info) Description 04/05/2007 Outpatient Historical [facility] Family Medicine [place] [address] [address] Social History Tobacco Use Types Packs/Day Years Used Date Smoking Tobacco: Never Assessed Sex and Gender Information Value Date Recorded Sex Assigned at Not on file Legal Sex Male 2:49 AM INTERNATIONAL RELATIONS TEACHER Gender Identity Not on file Sexual Orientation Not on file documented as of this encounter Plan of Treatment Not on file documented as of this encounter Visit Diagnoses Not on filedocumented in this encounter Care Teams Floatlight Loading Supervisor Relationship Specialty Start Date End Date Cuba Solano MD PCP - General 07/11/09 documented as of this encounter
--- OUTSIDE RECORDS SUMMARY | 2025-01-21 20:35 | XMS_ITS | Encounter Summary ---
Author Organization [facility] Address [address] [place] [address] Care Team Providers Care Clinical Provider Trainer Name Role Phone Cuba Solano MD Primary Care Provider +1 [phone] Encounter Details Date Type Department Care Team (Late st Contact Info) Description 09/21/2007 Outpatient Historical [facility] Keyona Mccloud, SURFACER NO ADDRESS ON FILE Social History Tobacco Use Types Packs/Day Years Used Date Smoking Tobacco: Never Assessed Sex and Gender Information Value Date Recorded Sex Assigned at Not on file Legal Sex Male 2:49 AM BANDOLEER STRAIGHTENER STAMPER Gender Identity Not on file Sexual Orientation Not on file documented as of this encounter Plan of Treatment Not on file documented as of this encounter Visit Diagnoses Not on filedocumented in this encounter Care Teams Clinical Provider Trainer Relationship Specialty Start Date End Date Cuba Solano MD PCP - General 07/11/09 documented as of this encounter
--- OUTSIDE RECORDS SUMMARY | 2025-01-21 20:35 | XMS_ITS | Encounter Summary ---
Author Organization [facility] Address [address] [place] [address] Care Team Providers Care Debrander Name Role Phone Cuba Solano MD Primary Care Provider +1 [phone] Encounter Details Date Type Department Care Team (Late st Contact Info) Description 12/03/2006 Outpatient Historical [facility] Social History Tobacco Use Types Packs/Day Years Used Date Smoking Tobacco: Never Assessed Sex and Gender Information Value Date Recorded Sex Assigned at Not on file Legal Sex Male 2:49 AM SUPERVISOR TANK STORAGE Gender Identity Not on file Sexual Orientation Not on file documented as of this encounter Plan of Treatment Not on file documented as of this encounter Visit Diagnoses Not on filedocumented in this encounter Care Teams Debrander Relationship Specialty Start Date End Date Cuba Solano MD PCP - General 07/11/09 documented as of this encounter
--- OUTSIDE RECORDS SUMMARY | 2025-01-21 20:35 | XMS_ITS | Encounter Summary ---
Author Organization [facility] Address [address] [place] [address] Care Team Providers Care Japanese Tutor Name Role Phone Cuba Solano MD Primary Care Provider +1 [phone] Encounter Details Date Type Department Care Team (Late st Contact Info) Description 03/07/2007 Outpatient Historical [place] 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
--- OUTSIDE RECORDS SUMMARY | 2025-01-21 20:35 | XMS_ITS | Encounter Summary ---
Author Organization [facility] Address [address] [place] [address] Care Team Providers Care Case Investigator Name Role Phone Cuba Solano MD Primary Care Provider +1 [phone] Encounter Details Date Type Department Care Team (Latest Contact Info) Description 06/10/2007 Outpatient Historical [facility] [address] [place] [address] Keyona Mccloud, LUCIEN NO ADDRESS ON FILE DM w/o Complication Type II, Uncontrolled Social History Tobacco Use Types Packs/Day Years Used Date Smoking Tobacco: Never Assessed Sex and Gender Information Value Date Recorded Sex Assigned at Not on file Legal Sex Male 2:49 AM HOTEL FRONT OFFICE MANAGER Gender Identity Not on file Sexual Orientation Not on file documented as of this encounter Plan of Treatment Not on file documented as of this encounter Visit Diagnoses Diagnosis Type II or unspecified type diabetes mellitus 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, uncontrolled documented in this encounter Care Teams Case Investigator Relationship Specialty Start Date End Date Cuba Solano MD PCP - General 07/11/09 documented as of this encounter
--- OUTSIDE RECORDS SUMMARY | 2025-01-21 20:35 | XMS_ITS | Encounter Summary ---
Author Organization [facility] Address [address] [place] [address] Care Team Providers Care Pressure Welder Name Role Phone Cuba Solano MD Primary Care Provider +1 [phone] Encounter Details Date Type Department Care Team (Latest Contact Info) Description 12/03/2006 Outpatient Historical [place] [address] [place] [address] Celso Calvert MD [address] [place] [id number] DM w/o Complication Type II, Uncontrolled (Primary Dx) Social History Tobacco Use Types Packs/Day Years Used Date Smoking Tobacco: Never Assessed Sex and Gender Information Value Date Recorded Sex Assigned at Not on file Legal Sex Male 2:49 AM WELDER TECH Gender Identity Not on file Sexual Orientation Not on file documented as of this encounter Plan of Treatment Not on file documented as of this encounter Visit Diagnoses Diagnosis Type II or unspecified type diabetes mellitus 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, uncontrolled- Primary documented in this encounter Care Teams Pressure Welder Relationship Specialty Start Date End Date Cuba Solano MD PCP - General 07/11/09 documented as of this encounter
--- OUTSIDE RECORDS SUMMARY | 2025-01-21 20:35 | XMS_ITS | Encounter Summary ---
Author Organization [facility] Address [address] [place] [address] Care Team Providers Care Pocket Machine Operator Name Role Phone Cuba Solano MD Primary Care Provider +1 [phone] Encounter Details Date Type Department Care Team (Latest Contact Info) Description 12/10/2006 Outpatient Historical [facility] Orthopedics- [address] [place] [address] [place] [address] Ash Lopez III, MD [address] [place] [address] Pain in Joint, Lower Leg (Primary Dx); Muscular Wasting and Disuse Atrophy, not Elsewhere Classified; Lower Limb Amputation, Above Knee (CMS/HCC) Social History Tobacco Use Types Packs/Day Years Used Date Smoking Tobacco: Never Assessed Sex and Gender Information Value Date Recorded Sex Assigned at Not on file Legal Sex Male 2:49 AM SKIVER UPPERS OR LININGS Gender Identity Not on file Sexual Orientation Not on file documented as of this encounter Plan of Treatment Not on file documented as of this encounter Visit Diagnoses Diagnosis Pain in joint, lower leg- Primary Muscular wasting and disuse atrophy, 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
--- OUTSIDE RECORDS SUMMARY | 2025-01-21 20:35 | XMS_ITS | Encounter Summary ---
Author Organization [facility] Address [address] [place] [address] Care Team Providers Care Sagger Filler Name Role Phone Cuba Solano MD Primary Care Provider +1 [phone] Encounter Details Date Type Department Care Team (Late st Contact Info) Description 12/15/2007 Outpatient Historical [facility] Keyona Mccloud, OPERATIONS SUPPORT PROFESSIONALS NO ADDRESS ON FILE Social History Tobacco Use Types Packs/Day Years Used Date Smoking Tobacco: Never Assessed Cigarettes Smokeless Tobacco: Current Chew Alcohol Use Standard Drinks/Week Comments No 0 (1 standard drink = 0.6 oz pur e alcohol) Sex and Gender Information Value Date Recorded Sex Assigned at Not on file Legal Sex Male 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
--- OUTSIDE RECORDS SUMMARY | 2025-01-21 20:35 | XMS_ITS | Encounter Summary ---
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
--- OUTSIDE RECORDS SUMMARY | 2025-01-21 20:35 | XMS_ITS | Encounter Summary ---
Author Organization [facility] Address [address] [place] [address] Care Team Providers Care Supervisor Sign Shop Name Role Phone Cuba Solano MD Primary Care Provider [phone] [phone] Encounter Details Date Type Department Care Team (Latest Contact Info) Description 06/17/2007 Outpatient Historical [place] [address] [place] [address] Celso Calvert MD [address] [place] [phone] DM w/o Complication Type II, Uncontrolled Social History Tobacco Use Types Packs/Day Years Used Date Smoking Tobacco: Never Assessed Sex and Gender Information Value Date Recorded Sex Assigned at Not on file Legal Sex Male 2:49 AM SUPERINTENDENT POLICE Gender Identity Not on file Sexual Orientation Not on file documented as of this encounter Plan of Treatment Not on file documented as of this encounter Visit Diagnoses Diagnosis Type II or unspecified type diabetes mellitus 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, uncontrolled documented in this encounter Care Teams Supervisor Sign Shop Relationship Specialty Start Date End Date Cuba Solano MD PCP - General 07/11/09 documented as of this encounter
--- OUTSIDE RECORDS SUMMARY | 2025-01-21 20:36 | XMS_ITS | Encounter Summary ---
Author Organization [facility] Address [address] [place] [address] Care Team Providers Care Regional Service Manager Name Role Phone Cuba Solano MD Primary Care Provider +1 [phone] Encounter Details Date Type Department Care Team (Latest Contact Info) Description 12/03/2004 Outpatient Historical [facility] Orthopedics- [address] [place] [address] 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
--- OUTSIDE RECORDS SUMMARY | 2025-01-21 20:36 | XMS_ITS | Encounter Summary ---
Author Organization [facility] Address [address] [place] [address] Care Team Providers Care Automobile Upholstery Trim Installer Name Role Phone Cuba Solano MD Primary Care Provider +1 [phone] Encounter Details Date Type Department Care Team (Latest Contact Info) Description 02/06/[address] [facility] Family Medicine [place] [facility] [address] [address] Huey Upton Jr., MD [address] [place] [address] 248 [facility] [address] [place] [address] HAIR DISEASES NEC (Primary Dx); DIABETES MELLITUS TYPE II-UNCOMPL (CMS/[facility]); Dysfunct eustachian tube; Vaccine for influenza Social History Tobacco Use Types Packs/Day Years Used Date Smoking Tobacco: Never Assessed Sex and Gender Information Value Date Recorded Sex Assigned at Not on file Legal Sex Male 2:49 AM KILN MAINTENANCE Gender Identity Not on file Sexual Orientation [...] influenza documented in this encounter Care Teams Automobile Upholstery Trim Installer Relationship Specialty Start Date End Date Cuba Solano MD PCP - General 07/11/09 documented as of this encounter
--- OUTSIDE RECORDS SUMMARY | 2025-01-21 20:36 | XMS_ITS | Encounter Summary ---
Author Organization [facility] Address [address] [place] [address] Care Team Providers Care Cad Draftsman Name Role Phone Cuba Solano MD Primary Care Provider +1 [phone] Encounter Details Date Type Department Care Team (Latest Contact Info) Description 10/21/2005 Outpatient Historical [facility] Orthopedics- [address] [place] [address] [place] [address] Ash Lopez III, MD [address] [place] [address] Unspecified Disorders of Bursae and [...] region documented in this encounter Care Teams Cad Draftsman Relationship Specialty Start Date End Date Cuba Solano MD PCP - General 07/11/09 documented as of this encounter
--- OUTSIDE RECORDS SUMMARY | 2025-01-21 20:36 | XMS_ITS | Encounter Summary ---
Author Organization [facility] Address [address] [place] [address] Care Team Providers Care Emergency Medical Technician Name Role Phone Cuba Solano MD Primary Care Provider +1 [phone] Encounter Details Date Type Department Care Team (Late st Contact Info) Description 08/04/2005 Outpatient Historical [facility] Family Medicine [place] [address] [address] Social History Tobacco Use Types Packs/Day Years Used Date Smoking Tobacco: Never Assessed Sex and Gender Information Value Date Recorded Sex Assigned at Not on file Legal Sex Male 2:49 AM CHILD SUPPORT OFFICER Gender Identity Not on file Sexual Orientation Not on file documented as of this encounter Plan of Treatment Not on file documented as of this encounter Visit Diagnoses Not on filedocumented in this encounter Care Teams Emergency Medical Technician Relationship Specialty Start Date End Date Cuba Solano MD PCP - General 07/11/09 documented as of this encounter
--- OUTSIDE RECORDS SUMMARY | 2025-01-21 20:36 | XMS_ITS | Encounter Summary ---
Author Organization [facility] Address [address] [place] [address] Care Team Providers Care Body Piercer Name Role Phone Cuba Solano MD Primary Care Provider +1 [phone] Encounter Details Date Type Department Care Team (Late st Contact Info) Description 05/12/2005 Outpatient Historical [facility] [place] [address] [address] Social History Tobacco Use Types Packs/Day Years Used Date Smoking Tobacco: Never Assessed Sex and Gender Information Value Date Recorded Sex Assigned at Not on file Legal Sex Male 2:49 AM SIGHTSEEING GUIDE Gender Identity Not on file Sexual Orientation Not on file documented as of this encounter Plan of Treatment Not on file documented as of this encounter Visit Diagnoses Not on filedocumented in this encounter Care Teams Body Piercer Relationship Specialty Start Date End Date Cuba Solano MD PCP - General 07/11/09 documented as of this encounter
--- OUTSIDE RECORDS SUMMARY | 2025-01-21 20:36 | XMS_ITS | Encounter Summary ---
Author Organization [facility] Address [address] [place] [address] Care Team Providers Care Peoplesoft Financial Developer Name Role Phone Cuba Solano MD Primary Care Provider +1 [phone] Encounter Details Date Type Department Care Team (Latest Contact Info) Description 03/16/2006 Outpatient Historical [facility] Orthopedics- [address] [place] 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
--- OUTSIDE RECORDS SUMMARY | 2025-01-21 20:36 | XMS_ITS | Encounter Summary ---
Author Organization [facility] Address [address] [place] [address] Care Team Providers Care Coater Operator Insulation Board Name Role Phone Cuba Solano MD Primary Care Provider +1 [phone] Encounter Details Date Type Department Care Team (Latest Contact Info) Description 07/30/2005 Outpatient Historical [facility] Family Medicine [place] [id number] [address] Keyona Mccloud, LUCIEN NO ADDRESS ON FILE Unspecified Otitis Media (Primary Dx) Social History Tobacco Use Types Packs/Day Years Used Date Smoking Tobacco: Never Assessed Sex and Gender Information Value Date Recorded Sex Assigned at Not on file Legal Sex Male 2:49 AM SOLAR ENERGY SYSTEM INSTALLER HELPER Gender Identity Not on file Sexual Orientation Not on file documented as of this encounter Plan of Treatment Not on file documented as of this encounter Visit Diagnoses Diagnosis Unspecified otitis media- Primary documented in this encounter Care Teams Coater Operator Insulation Board Relationship Specialty Start Date End Date Cuba Solano MD PCP - General 07/11/09 documented as of this encounter
--- OUTSIDE RECORDS SUMMARY | 2025-01-21 20:36 | XMS_ITS | Encounter Summary ---
Author Organization [facility] Address [address] [place] [address] Care Team Providers Care Double Head Machine Operator Name Role Phone Cuba Solano MD Primary Care Provider +1 [phone] Encounter Details Date Type Department Care Team (Late st Contact Info) Description 07/20/2005 Outpatient Historical [facility] Family Medicine [place] [id number] [address] Social History Tobacco Use Types Packs/Day Years Used Date Smoking Tobacco: Never Assessed Sex and Gender Information Value Date Recorded Sex Assigned at Not on file Legal Sex Male 2:49 AM SUPERVISOR ELECTRONIC TESTING Gender Identity Not on file Sexual Orientation Not on file documented as of this encounter Plan of Treatment Not on file documented as of this encounter Visit Diagnoses Not on filedocumented in this encounter Care Teams Double Head Machine Operator Relationship Specialty Start Date End Date Cuba Solano MD PCP - General 07/11/09 documented as of this encounter
--- OUTSIDE RECORDS SUMMARY | 2025-01-21 20:36 | XMS_ITS | Encounter Summary ---
Author Organization [facility] Address [address] [place] [address] Care Team Providers Care Design Inserter Name Role Phone Cuba Solano MD Primary Care Provider +1 [phone] Encounter Details Date Type Department Care Team (Latest Contact Info) Description 04/17/2005 Outpatient Historical [facility] Family Medicine [place] [facility] [address] [address] Huey Upton Jr., MD [address] [place] [address] [facility] [address] [place] [address] ALLERGY, UNSPECIFIED (Primary Dx) Social History Tobacco Use Types Packs/Day Years Used Date Smoking Tobacco: Never Assessed Sex and Gender Information Value Date Recorded Sex Assigned at Not on file Legal Sex Male 2:49 AM ASPHALT HEATER TENDER Gender Identity Not on file Sexual Orientation Not on file documented as of this encounter Plan of Treatment Not on file documented as of this encounter Visit Diagnoses Diagnosis Allergy, unspecified not elsewhere classified- Primary documented in this encounter Care Teams Design Inserter Relationship Specialty Start Date End Date Cuba Solano MD PCP - General 07/11/09 documented as of this encounter
--- OUTSIDE RECORDS SUMMARY | 2025-01-21 20:36 | XMS_ITS | Encounter Summary ---
Author Organization [facility] Address [address] [place] [address] Care Team Providers Care Telecommunications Network Engineer Name Role Phone Cuba Solano MD Primary Care Provider +1 [phone] Encounter Details Date Type Department Care Team (Latest Contact Info) Description 03/05/2006 Outpatient Historical [facility] Family Medicine [place] [address] [address] Keyona Mccloud, LUCIEN NO ADDRESS ON FILE Unspecified Essential Hypertension (Primary Dx); Edema Social History Tobacco Use Types Packs/Day Years Used Date Smoking Tobacco: Never Assessed Sex and Gender Information Value Date Recorded Sex Assigned at Not on file Legal Sex Male 2:49 AM INTAKE NURSE Gender Identity Not on file Sexual Orientation Not on file documented as of this encounter Plan of Treatment Not on file documented as of this encounter Visit Diagnoses Diagnosis Unspecified essential hypertension- Primary Edema documented in this encounter Care Teams Telecommunications Network Engineer Relationship Specialty Start Date End Date Cuba Solano MD PCP - General 07/11/09 documented as of this encounter
--- OUTSIDE RECORDS SUMMARY | 2025-01-21 20:36 | XMS_ITS | Continuity of Care Document ---
Author Organization [facility] ([facility]) Address [address] [place] [address] Insurance Providers Payer Plan Claims Address Claims Phone Policy Number Group Number Relation Employer Guarantor Name Guarantor Guarantor Address Guarantor Phone [place] [facility] [place] [address] [address], [place] [address] tel:[phone] Self Marciano Alonso [address] [place] [id number] [place] [facility] [address], [place] [address] tel:[phone] Self Marciano Alonso [address] [place] [address] [employer] [facility] Part B Claims Departme nt, [address] [address], [place] [address] tel:[phone] [phone] Self Marciano Alonso [address] [place] [address] Problems Condition ICD9 code ICD10 code SNOMED code Start Date End Date S tatus Chronic atrial fibrillation, unspecified I48.20 02/24/2024 Active 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 Z79.01 02/24/2024 Active Unspecified atrial flutter I48.92 02/24/2024 Active Chronic obstructive pulmonary disease, unspecified J44.9 02/24/2024 Active Acute respiratory failure with hypoxia J96.01 02/24/2024 Active Muscle weakness (generalized) M62.81 02/28/2024 Active Need for assistance with personal care Z74.1 02/28/2024 Active technician terminal 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 Refere nce Range Blood chemistry[[id number]] Glucose [Mass/volume] in Serum or Plasma [2345-7] 01/21/2025 04:17 PM 348 mg/dL N Blood chemistry[[id number]] Glucose [Mass/volume] in Serum or Plasma [2345-7] 01/21/2025 09:33 AM 297 mg/dL N Blood chemistry[[id number]] Glucose [Mass/volume] in Serum or Plasma [2345-7] 01/21/2025 12:03 PM 445 mg/dL N Blood chemistry[[id number]] Glucose [Mass/volume] in Serum or Plasma [2345-7] 01/20/2025 12:59 PM 389 mg/dL N Blood chemistry[[id number]] Glucose [Mass/volume] in Serum or Plasma [2345-7] 01/20/2025 04:22 PM 193 mg/dL N Blood chemistry[[id number]] Glucose [Mass/volume] in Serum or Plasma [2345-7] 01/20/2025 12:30 PM 169 mg/dL N Blood chemistry[[id number]] Glucose [Mass/volume] in Serum or Plasma [2345-7] 01/19/2025 03:37 PM 393 mg/dL N Blood chemistry[[id number]] Glucose [Mass/volume] in Serum or Plasma [2345-7] 01/19/2025 04:24 PM 259 mg/dL N Blood chemistry[[id number]] Glucose [Mass/volume] in Serum or Plasma [2345-7] 01/19/2025 10:11 AM 243 mg/dL N Blood chemistry[[id number]] Glucose [Mass/volume] in Serum or Plasma [2345-7] 01/19/2025 11:56 AM 140 mg/dL N Blood chemistry[[id number]] Glucose [Mass/volume] in Serum or Plasma [2345-7] 01/18/2025 12:28 PM 226 mg/dL N Blood chemistry[[id number]] Glucose [Mass/volume] in Serum or Plasma [2345-7] 01/18/2025 04:51 PM 266 mg/dL N Blood chemistry[[id number]] Glucose [Mass/volume] in Serum or Plasma [2345-7] 01/18/2025 10:12 AM 230 mg/dL N Blood chemistry[[id number]] Glucose [Mass/volume] in Serum or Plasma [2345-7] 01/18/2025 12:18 PM 112 mg/dL N Blood chemistry[[id number]] Glucose [Mass/volume] in Serum or Plasma [2345-7] 01/17/2025 11:46 AM 336 mg/dL N Blood chemistry[[id number]] Glucose [Mass/volume] in Serum or Plasma [2345-7] 01/17/2025 04:18 PM 264 mg/dL N Blood chemistry[[id number]] Glucose [Mass/volume] in Serum or Plasma [2345-7] 01/17/2025 08:46 AM 261 mg/dL N Blood chemistry[[id number]] Glucose [Mass/volume] in Serum or Plasma [2345-7] 01/17/2025 11:18 AM 237 mg/dL N Blood chemistry[[id number]] Glucose [Mass/volume] in Serum or Plasma [2345-7] 01/16/2025 03:33 PM 397 mg/dL N Blood chemistry[[id number]] Glucose [Mass/volume] in Serum or Plasma [2345-7] 01/16/2025 04:36 PM 371 mg/dL N Blood chemistry[[id number]] Glucose [Mass/volume] in Serum or Plasma [2345-7] 01/16/2025 11:42 AM 111 mg/dL N Blood chemistry[[id number]] Glucose [Mass/volume] in Serum or Plasma [2345-7] 01/15/2025 01:23 PM 266 mg/dL N Blood chemistry[[id number]] Glucose [Mass/volume] in Serum or Plasma [2345-7] 01/15/2025 04:49 PM 145 mg/dL N Blood chemistry[[id number]] Glucose [Mass/volume] in Serum or Plasma [2345-7] 01/15/2025 09:33 AM 188 mg/dL N Blood chemistry[[id number]] Glucose [Mass/volume] in Serum or Plasma [2345-7] 01/15/2025 09:27 AM 264 mg/dL N Blood chemistry[[id number]] Glucose [Mass/volume] in Serum or Plasma [2345-7] 01/14/2025 12:53 PM 355 mg/dL N Blood chemistry[[id number]] Glucose [Mass/volume] in Serum or Plasma [2345-7] 01/14/2025 04:26 PM 362 mg/dL N Blood chemistry[[id number]] Glucose [Mass/volume] in Serum or Plasma [2345-7] 01/14/2025 09:41 AM 256 mg/dL N Blood chemistry[[id number]] Glucose [Mass/volume] in Serum or Plasma [2345-7] 01/13/2025 09:53 AM 462 mg/dL N Blood chemistry[[id number]] Glucose [Mass/volume] in Serum or Plasma [2345-7] 01/13/2025 04:36 PM 329 mg/dL N Blood chemistry[[id number]] Glucose [Mass/volume] in Serum or Plasma [2345-7] 01/13/2025 11:41 AM 247 mg/dL N Blood chemistry[[id number]] Glucose [Mass/volume] in Serum or Plasma [2345-7] 01/12/2025 12:21 PM 244 mg/dL N Blood chemistry[[id number]] Glucose [Mass/volume] in Serum or Plasma [2345-7] 01/12/2025 04:18 PM 212 mg/dL N Blood chemistry[[id number]] Glucose [Mass/volume] in Serum or Plasma [2345-7] 01/12/2025 09:45 AM 207 mg/dL N Blood chemistry[[id number]] Glucose [Mass/volume] in Serum or Plasma [2345-7] 01/12/2025 12:13 PM 206 mg/dL N Blood chemistry[[id number]] Glucose [Mass/volume] in Serum or Plasma [2345-7] 01/11/2025 12:18 PM 339 mg/dL N Blood chemistry[[id number]] Glucose [Mass/volume] in Serum or Plasma [2345-7] 01/11/2025 10:41 AM 416 mg/dL N Blood chemistry[[id number]] Glucose [Mass/volume] in Serum or Plasma [2345-7] 01/11/2025 04:30 PM 340 mg/dL N Blood chemistry[[id number]] Glucose [Mass/volume] in Serum or Plasma [2345-7] 01/11/2025 12:27 PM 188 mg/dL N Blood chemistry[[id number]] Glucose [Mass/volume] in Serum or Plasma [2345-7] 01/10/2025 01:29 PM 402 mg/dL N Blood chemistry[[id number]] Glucose [Mass/volume] in Serum or Plasma [2345-7] 01/10/2025 04:33 PM 367 mg/dL N Blood chemistry[[id number]] Glucose [Mass/volume] in Serum or Plasma [2345-7] 01/10/2025 09:33 AM 360 mg/dL N Blood chemistry[[id number]] Glucose [Mass/volume] in Serum or Plasma [2345-7] 01/10/2025 10:38 AM 329 mg/dL N Blood chemistry[[id number]] Glucose [Mass/volume] in Serum or Plasma [2345-7] 01/09/2025 12:26 PM 394 mg/dL N Blood chemistry[[id number]] Glucose [Mass/volume] in Serum or Plasma [2345-7] 01/09/2025 04:39 PM 400 mg/dL N Blood chemistry[[id number]] Glucose [Mass/volume] in Serum or Plasma [2345-7] 01/09/2025 10:17 AM 368 mg/dL N Blood chemistry[[id number]] Glucose [Mass/volume] in Serum or Plasma [2345-7] 01/09/2025 12:17 PM 289 mg/dL N Blood chemistry[[id number]] Glucose [Mass/volume] in Serum or Plasma [2345-7] 01/08/2025 04:22 PM 344 mg/dL N Blood chemistry[[id number]] Glucose [Mass/volume] in Serum or Plasma [2345-7] 01/08/2025 11:23 AM 228 mg/dL N Blood chemistry[[id number]] Glucose [Mass/volume] in Serum or Plasma [2345-7] 01/08/2025 09:28 AM 247 mg/dL N Blood chemistry[[id number]] Glucose [Mass/volume] in Serum or Plasma [2345-7] 01/08/2025 12:39 PM 250 mg/dL N Blood chemistry[[id number]] Glucose [Mass/volume] in Serum or Plasma [2345-7] 01/07/2025 01:00 PM 295 mg/dL N Blood chemistry[[id number]] Glucose [Mass/volume] in Serum or Plasma [2345-7] 01/07/2025 04:34 PM 337 mg/dL N Blood chemistry[[id number]] Glucose [Mass/volume] in Serum or Plasma [2345-7] 01/07/2025 10:12 AM 208 mg/dL N Blood chemistry[[id number]] Glucose [Mass/volume] in Serum or Plasma [2345-7] 01/07/2025 12:11 PM 244 mg/dL N Blood chemistry[[id number]] Glucose [Mass/volume] in Serum or Plasma [2345-7] 01/06/2025 12:52 PM 205 mg/dL N Blood chemistry[[id number]] Glucose [Mass/volume] in Serum or Plasma [2345-7] 01/06/2025 04:14 PM 230 mg/dL N Blood chemistry[[id number]] Glucose [Mass/volume] in Serum or Plasma [2345-7] 01/06/2025 09:31 AM 205 mg/dL N Blood chemistry[[id number]] Glucose [Mass/volume] in Serum or Plasma [2345-7] 01/06/2025 12:06 PM 153 mg/dL N Blood chemistry[[id number]] Glucose [Mass/volume] in Serum or Plasma [2345-7] 01/05/2025 11:55 AM 206 mg/dL N Blood chemistry[[id number]] Glucose [Mass/volume] in Serum or Plasma [2345-7] 01/05/2025 10:16 AM 161 mg/dL N Blood chemistry[[id number]] Glucose [Mass/volume] in Serum or Plasma [2345-7] 01/05/2025 05:26 PM 274 mg/dL N Blood chemistry[[id number]] Glucose [Mass/volume] in Serum or Plasma [2345-7] 01/05/2025 12:10 PM 216 mg/dL N Blood chemistry[[id number]] Glucose [Mass/volume] in Serum or Plasma [2345-7] 01/04/2025 04:50 PM 283 mg/dL N Blood chemistry[[id number]] Glucose [Mass/volume] in Serum or Plasma [2345-7] 01/04/2025 01:43 PM 418 mg/dL N Blood chemistry[[id number]] Glucose [Mass/volume] in Serum or Plasma [2345-7] 01/04/2025 12:24 PM 161 mg/dL N Blood chemistry[[id number]] Glucose [Mass/volume] in Serum or Plasma [2345-7] 01/04/2025 09:45 AM 234 mg/dL N Blood chemistry[[id number]] Glucose [Mass/volume] in Serum or Plasma [2345-7] 01/03/2025 04:48 PM 148 mg/dL N Blood chemistry[[id number]] Glucose [Mass/volume] in Serum or Plasma [2345-7] 01/03/2025 01:46 PM 180 mg/dL N Blood chemistry[[id number]] Glucose [Mass/volume] in Serum or Plasma [2345-7] 01/03/2025 09:12 AM 161 mg/dL N Blood chemistry[[id number]] Glucose [Mass/volume] in Serum or Plasma [2345-7] 01/02/2025 04:37 PM 270 mg/dL N Blood chemistry[[id number]] Glucose [Mass/volume] in Serum or Plasma [2345-7] 01/02/2025 04:27 PM 355 mg/dL N Blood chemistry[[id number]] Glucose [Mass/volume] in Serum or Plasma [2345-7] 01/02/2025 11:34 AM 240 mg/dL N Blood chemistry[[id number]] Glucose [Mass/volume] in Serum or Plasma [2345-7] 01/02/2025 10:26 AM 227 mg/dL N Blood chemistry[[id number]] Glucose [Mass/volume] in Serum or Plasma [2345-7] 01/01/2025 04:50 PM 286 mg/dL N Blood chemistry[[id number]] Glucose [Mass/volume] in Serum or Plasma [2345-7] 01/01/2025 01:29 PM 400 mg/dL N Blood chemistry[[id number]] Glucose [Mass/volume] in Serum or Plasma [2345-7] 01/01/2025 10:03 AM 282 mg/dL N Blood chemistry[[id number]] Glucose [Mass/volume] in Serum or Plasma [2345-7] 01/01/2025 09:54 AM 265 mg/dL N Blood chemistry[[id number]] Glucose [Mass/volume] in Serum or Plasma [2345-7] 12/31/2024 04:25 PM 286 mg/dL N Blood chemistry[[id number]] Glucose [Mass/volume] in Serum or Plasma [2345-7] 12/31/2024 12:08 PM 426 mg/dL N Blood chemistry[[id number]] Glucose [Mass/volume] in Serum or Plasma [2345-7] 12/31/2024 12:07 PM 203 mg/dL N Blood chemistry[[id number]] Glucose [Mass/volume] in Serum or Plasma [2345-7] 12/31/2024 09:50 AM 369 mg/dL N Blood chemistry[[id number]] Glucose [Mass/volume] in Serum or Plasma [2345-7] 12/30/2024 05:49 PM 381 mg/dL N Blood chemistry[[id number]] Glucose [Mass/volume] in Serum or Plasma [2345-7] 12/30/2024 04:20 PM 454 mg/dL N Blood chemistry[[id number]] Glucose [Mass/volume] in Serum or Plasma [2345-7] 12/30/2024 01:21 PM 288 mg/dL N Blood chemistry[[id number]] Glucose [Mass/volume] in Serum or Plasma [2345-7] 12/30/2024 09:39 AM 245 mg/dL N Blood chemistry[[id number]] Glucose [Mass/volume] in Serum or Plasma [2345-7] 12/29/2024 04:52 PM 281 mg/dL N Blood chemistry[[id number]] Glucose [Mass/volume] in Serum or Plasma [2345-7] 12/29/2024 11:41 AM 329 mg/dL N Blood chemistry[[id number]] Glucose [Mass/volume] in Serum or Plasma [2345-7] 12/29/2024 11:20 AM 176 mg/dL N Blood chemistry[[id number]] Glucose [Mass/volume] in Serum or Plasma [2345-7] 12/29/2024 09:33 AM 306 mg/dL N Blood chemistry[[id number]] Glucose [Mass/volume] in Serum or Plasma [5-7] 12/28/2024 04:20 PM 268 mg/dL N Blood chemistry[[id number]] Glucose [Mass/volume] in Serum or Plasma [2345-7] 12/28/2024 12:45 PM 330 mg/dL N Blood chemistry[[id number]] Glucose [Mass/volume] in Serum or Plasma [2345-7] 12/28/2024 12:18 PM 221 mg/dL N Blood chemistry[[id number]] Glucose [Mass/volume] in Serum or Plasma [5-7] 12/28/2024 10:38 AM 308 mg/dL N Blood chemistry[[id number]] Glucose [Mass/volume] in Serum or Plasma [2345-7] 12/27/2024 12:14 PM 381 mg/dL N Blood chemistry[[id number]] Glucose [Mass/volume] in Serum or Plasma [2345-7] 12/27/2024 11:58 AM 231 mg/dL N Blood chemistry[[id number]] Glucose [Mass/volume] in Serum or Plasma [2345-7] 12/27/2024 09:45 AM 211 mg/dL N Blood chemistry[[id number]] Glucose [Mass/volume] in Serum or Plasma [2345-7] 12/26/2024 04:30 PM 210 mg/dL N Blood chemistry[[id number]] Glucose [Mass/volume] in Serum or Plasma [2345-7] 12/26/2024 12:32 PM 340 mg/dL N Blood chemistry[[id number]] Glucose [Mass/volume] in Serum or Plasma [2345-7] 12/26/2024 11:04 AM 135 mg/dL N Blood chemistry[[id number]] Glucose [Mass/volume] in Serum or Plasma [2345-7] 12/26/2024 09:49 AM 263 mg/dL N Blood chemistry[[id number]] Glucose [Mass/volume] in Serum or Plasma [2345-7] 12/25/2024 02:45 PM 270 mg/dL N Blood chemistry[[id number]] Glucose [Mass/volume] in Serum or Plasma [2345-7] 12/25/2024 12:31 PM 386 mg/dL N Blood chemistry[[id number]] Glucose [Mass/volume] in Serum or Plasma [2345-7] 12/25/2024 10:44 AM 181 mg/dL N Blood chemistry[[id number]] Glucose [Mass/volume] in Serum or Plasma [2345-7] 12/25/2024 06:06 AM 290 mg/dL N Blood chemistry[[id number]] Glucose [Mass/volume] in Serum or Plasma [2345-7] 12/24/2024 04:18 PM 215 mg/dL N Blood chemistry[[id number]] Glucose [Mass/volume] in Serum or Plasma [2345-7] 12/24/2024 03:49 PM 305 mg/dL N Blood chemistry[[id number]] Glucose [Mass/volume] in Serum or Plasma [2345-7] 12/24/2024 11:52 AM 209 mg/dL N Blood chemistry[[id number]] Glucose [Mass/volume] in Serum or Plasma [2345-7] 12/24/2024 10:06 AM 211 mg/dL N Blood chemistry[[id number]] Glucose [Mass/volume] in Serum or Plasma [2345-7] 12/23/2024 04:16 PM 255 mg/dL N Blood chemistry[[id number]] Glucose [Mass/volume] in Serum or Plasma [2345-7] 12/23/2024 12:12 PM 260 mg/dL N Blood chemistry[[id number]] Glucose [Mass/volume] in Serum or Plasma [2345-7] 12/23/2024 12:03 PM 197 mg/dL N Blood chemistry[[id number]] Glucose [Mass/volume] in Serum or Plasma [2345-7] 12/23/2024 10:31 AM 193 mg/dL N Blood chemistry[[id number]] Glucose [Mass/volume] in Serum or Plasma [2345-7] 12/22/2024 04:45 PM 274 mg/dL N Blood chemistry[[id number]] Glucose [Mass/volume] in Serum or Plasma [2345-7] 12/22/2024 01:35 PM 229 mg/dL N Blood chemistry[[id number]] Glucose [Mass/volume] in Serum or Plasma [2345-7] 12/22/2024 12:03 PM 171 mg/dL N Blood chemistry[[id number]] Glucose [Mass/volume] in Serum or Plasma [2345-7] 12/22/2024 10:56 AM 193 mg/dL N Blood chemistry[[id number]] Glucose [Mass/volume] in Serum or Plasma [2345-7] 12/21/2024 04:06 PM 331 mg/dL N Blood chemistry[[id number]] Glucose [Mass/volume] in Serum or Plasma [2345-7] 12/21/2024 12:37 PM 316 mg/dL N Blood chemistry[[id number]] Glucose [Mass/volume] in Serum or Plasma [2345-7] 12/21/2024 10:52 AM 321 mg/dL N Blood chemistry[[id number]] Glucose [Mass/volume] in Serum or Plasma [2345-7] 12/21/2024 10:23 AM 242 mg/dL N Blood chemistry[[id number]] Glucose [Mass/volume] in Serum or Plasma [2345-7] 12/20/2024 04:10 PM 264 mg/dL N Blood chemistry[[id number]] Glucose [Mass/volume] in Serum or Plasma [2345-7] 12/20/2024 12:49 PM 346 mg/dL N Blood chemistry[[id number]] Glucose [Mass/volume] in Serum or Plasma [2345-7] 12/20/2024 10:51 AM 247 mg/dL N Blood chemistry[[id number]] Glucose [Mass/volume] in Serum or Plasma [2345-7] 12/20/2024 09:41 AM 202 mg/dL N Blood chemistry[[id number]] Glucose [Mass/volume] in Serum or Plasma [2345-7] 12/19/2024 04:54 PM 381 mg/dL N Blood chemistry[[id number]] Glucose [Mass/volume] in Serum or Plasma [2345-7] 12/19/2024 01:25 PM 346 mg/dL N Blood chemistry[[id number]] Glucose [Mass/volume] in Serum or Plasma [2345-7] 12/19/2024 12:36 PM 255 mg/dL N Blood chemistry[[id number]] Glucose [Mass/volume] in Serum or Plasma [2345-7] 12/19/2024 10:37 AM 238 mg/dL N Blood chemistry[[id number]] Glucose [Mass/volume] in Serum or Plasma [2345-7] 12/18/2024 03:25 PM 250 mg/dL N Blood chemistry[[id number]] Glucose [Mass/volume] in Serum or Plasma [2345-7] 12/18/2024 12:32 PM 238 mg/dL N Blood chemistry[[id number]] Glucose [Mass/volume] in Serum or Plasma [2345-7] 12/18/2024 09:12 AM 285 mg/dL N Blood chemistry[[id number]] Glucose [Mass/volume] in Serum or Plasma [2345-7] 12/17/2024 04:42 PM 247 mg/dL N Blood chemistry[[id number]] Glucose [Mass/volume] in Serum or Plasma [2345-7] 12/17/2024 02:44 PM 242 mg/dL N Blood chemistry[[id number]] Glucose [Mass/volume] in Serum or Plasma [2345-7] 12/17/2024 11:43 AM 264 mg/dL N Blood chemistry[[id number]] Glucose [Mass/volume] in Serum or Plasma [2345-7] 12/17/2024 10:16 AM 184 mg/dL N Blood chemistry[[id number]] Glucose [Mass/volume] in Serum or Plasma [2345-7] 12/16/2024 05:25 PM 282 mg/dL N Blood chemistry[[id number]] Glucose [Mass/volume] in Serum or Plasma [2345-7] 12/16/2024 04:41 PM 319 mg/dL N Blood chemistry[[id number]] Glucose [Mass/volume] in Serum or Plasma [2345-7] 12/16/2024 04:21 PM 246 mg/dL N Blood chemistry[[id number]] Glucose [Mass/volume] in Serum or Plasma [2345-7] 12/16/2024 11:43 AM 227 mg/dL N Blood chemistry[[id number]] Glucose [Mass/volume] in Serum or Plasma [2345-7] 12/15/2024 05:36 PM 299 mg/dL N Blood chemistry[[id number]] Glucose [Mass/volume] in Serum or Plasma [2345-7] 12/15/2024 11:11 AM 217 mg/dL N Blood chemistry[[id number]] Glucose [Mass/volume] in Serum or Plasma [2345-7] 12/15/2024 10:06 AM 269 mg/dL N Blood chemistry[[id number]] Glucose [Mass/volume] in Serum or Plasma [2345-7] 12/14/2024 04:10 PM 272 mg/dL N Blood chemistry[[id number]] Glucose [Mass/volume] in Serum or Plasma [2345-7] 12/14/2024 12:50 PM 288 mg/dL N Blood chemistry[[id number]] Glucose [Mass/volume] in Serum or Plasma [2345-7] 12/14/2024 11:55 AM 197 mg/dL N Blood chemistry[[id number]] Glucose [Mass/volume] in Serum or Plasma [2345-7] 12/14/2024 09:30 AM 122 mg/dL N Blood chemistry[[id number]] Glucose [Mass/volume] in Serum or Plasma [2345-7] 12/13/2024 12:56 PM 347 mg/dL N Blood chemistry[[id number]] Glucose [Mass/volume] in Serum or Plasma [2345-7] 12/13/2024 12:20 PM 230 mg/dL N Blood chemistry[[id number]] Glucose [Mass/volume] in Serum or Plasma [2345-7] 12/13/2024 09:41 AM 230 mg/dL N Blood chemistry[[id number]] Glucose [Mass/volume] in Serum or Plasma [2345-7] 12/13/2024 06:22 AM 252 mg/dL N Blood chemistry[[id number]] Glucose [Mass/volume] in Serum or Plasma [2345-7] 12/12/2024 04:57 PM 316 mg/dL N Blood chemistry[[id number]] Glucose [Mass/volume] in Serum or Plasma [2345-7] 12/12/2024 02:25 PM 220 mg/dL N Blood chemistry[[id number]] Glucose [Mass/volume] in Serum or Plasma [2345-7] 12/12/2024 12:35 PM 268 mg/dL N Blood chemistry[[id number]] Glucose [Mass/volume] in Serum or Plasma [2345-7] 12/12/2024 09:46 AM 241 mg/dL N Blood chemistry[[id number]] Glucose [Mass/volume] in Serum or Plasma [2345-7] 12/11/2024 05:13 PM 295 mg/dL N Blood chemistry[[id number]] Glucose [Mass/volume] in Serum or Plasma [2345-7] 12/11/2024 02:20 PM 272 mg/dL N Blood chemistry[[id number]] Glucose [Mass/volume] in Serum or Plasma [2345-7] 12/11/2024 02:00 PM 284 mg/dL N Blood chemistry[[id number]] Glucose [Mass/volume] in Serum or Plasma [2345-7] 12/11/2024 10:22 AM 211 mg/dL N Blood chemistry[[id number]] Glucose [Mass/volume] in Serum or Plasma [2345-7] 12/10/2024 04:51 PM 232 mg/dL N Blood chemistry[[id number]] Glucose [Mass/volume] in Serum or Plasma [2345-7] 12/10/2024 04:10 PM 207 mg/dL N Blood chemistry[[id number]] Glucose [Mass/volume] in Serum or Plasma [2345-7] 12/10/2024 12:02 PM 275 mg/dL N Blood chemistry[[id number]] Glucose [Mass/volume] in Serum or Plasma [2345-7] 12/10/2024 09:31 AM 219 mg/dL N Blood chemistry[[id number]] Glucose [Mass/volume] in Serum or Plasma [2345-7] 12/09/2024 02:01 PM 246 mg/dL N Blood chemistry[[id number]] Glucose [Mass/volume] in Serum or Plasma [2345-7] 12/09/2024 12:13 PM 234 mg/dL N Blood chemistry[[id number]] Glucose [Mass/volume] in Serum or Plasma [2345-7] 12/09/2024 11:21 AM 224 mg/dL N Blood chemistry[[id number]] Glucose [Mass/volume] in Serum or Plasma [2345-7] 12/09/2024 11:19 AM 242 mg/dL N Blood chemistry[[id number]] Glucose [Mass/volume] in Serum or Plasma [2345-7] 12/09/2024 10:23 AM 170 mg/dL N Blood chemistry[[id number]] Glucose [Mass/volume] in Serum or Plasma [2345-7] 12/09/2024 07:09 AM 216 mg/dL N Blood chemistry[[id number]] Glucose [Mass/volume] in Serum or Plasma [2345-7] 12/08/2024 04:31 PM 218 mg/dL N Blood chemistry[[id number]] Glucose [Mass/volume] in Serum or Plasma [2345-7] 12/08/2024 12:13 PM 254 mg/dL N Blood chemistry[[id number]] Glucose [Mass/volume] in Serum or Plasma [2345-7] 12/07/2024 04:17 PM 292 mg/dL N Blood chemistry[[id number]] Glucose [Mass/volume] in Serum or Plasma [2345-7] 12/07/2024 04:02 PM 333 mg/dL N Blood chemistry[[id number]] Glucose [Mass/volume] in Serum or Plasma [2345-7] 12/07/2024 12:18 PM 287 mg/dL N Blood chemistry[[id number]] Glucose [Mass/volume] in Serum or Plasma [2345-7] 12/07/2024 09:39 AM 181 mg/dL N Blood chemistry[[id number]] Glucose [Mass/volume] in Serum or Plasma [2345-7] 12/06/2024 05:36 PM 369 mg/dL N Blood chemistry[[id number]] Glucose [Mass/volume] in Serum or Plasma [2345-7] 12/06/2024 03:45 PM 272 mg/dL N Blood chemistry[[id number]] Glucose [Mass/volume] in Serum or Plasma [2345-7] 12/06/2024 11:10 AM 257 mg/dL N Blood chemistry[[id number]] Glucose [Mass/volume] in Serum or Plasma [2345-7] 12/06/2024 09:31 AM 274 mg/dL N Blood chemistry[[id number]] Glucose [Mass/volume] in Serum or Plasma [2345-7] 12/05/2024 04:24 PM 296 mg/dL N Blood chemistry[[id number]] Glucose [Mass/volume] in Serum or Plasma [2345-7] 12/05/2024 12:44 PM 402 mg/dL N Blood chemistry[[id number]] Glucose [Mass/volume] in Serum or Plasma [2345-7] 12/05/2024 12:07 PM 360 mg/dL N Blood chemistry[[id number]] Glucose [Mass/volume] in Serum or Plasma [2345-7] 12/05/2024 09:31 AM 347 mg/dL N Blood chemistry[[id number]] Glucose [Mass/volume] in Serum or Plasma [2345-7] 12/04/2024 05:53 PM 318 mg/dL N Blood chemistry[[id number]] Glucose [Mass/volume] in Serum or Plasma [2345-7] 12/04/2024 12:23 PM 344 mg/dL N Blood chemistry[[id number]] Glucose [Mass/volume] in Serum or Plasma [2345-7] 12/04/2024 11:53 AM 351 mg/dL N Blood chemistry[[id number]] Glucose [Mass/volume] in Serum or Plasma [2345-7] 12/04/2024 10:33 AM 296 mg/dL N Blood chemistry[[id number]] Glucose [Mass/volume] in Serum or Plasma [2345-7] 12/03/2024 05:10 PM 378 mg/dL N Blood chemistry[[id number]] Glucose [Mass/volume] in Serum or Plasma [2345-7] 12/03/2024 02:06 PM 313 mg/dL N Blood chemistry[[id number]] Glucose [Mass/volume] in Serum or Plasma [2345-7] 12/03/2024 11:33 AM 294 mg/dL N Blood chemistry[[id number]] Glucose [Mass/volume] in Serum or Plasma [2345-7] 12/03/2024 11:01 AM 284 mg/dL N Blood chemistry[[id number]] Glucose [Mass/volume] in Serum or Plasma [2345-7] 12/02/2024 04:52 PM 458 mg/dL N Blood chemistry[[id number]] Glucose [Mass/volume] in Serum or Plasma [2345-7] 12/02/2024 02:27 PM 334 mg/dL N Blood chemistry[[id number]] Glucose [Mass/volume] in Serum or Plasma [2345-7] 12/02/2024 11:52 AM 332 mg/dL N Blood chemistry[[id number]] Glucose [Mass/volume] in Serum or Plasma [2345-7] 12/02/2024 09:53 AM 271 mg/dL N Blood chemistry[[id number]] Glucose [Mass/volume] in Serum or Plasma [2345-7] 12/01/2024 04:27 PM 274 mg/dL N Blood chemistry[[id number]] Glucose [Mass/volume] in Serum or Plasma [2345-7] 12/01/2024 02:22 PM 313 mg/dL N Blood chemistry[[id number]] Glucose [Mass/volume] in Serum or Plasma [2345-7] 12/01/2024 01:34 PM 281 mg/dL N Blood chemistry[[id number]] Glucose [Mass/volume] in Serum or Plasma [2345-7] 12/01/2024 09:45 AM 256 mg/dL N Blood chemistry[[id number]] Glucose [Mass/volume] in Serum or Plasma [2345-7] 11/30/2024 04:11 PM 453 mg/dL N Blood chemistry[[id number]] Glucose [Mass/volume] in Serum or Plasma [2345-7] 11/30/2024 12:21 PM 297 mg/dL N Blood chemistry[[id number]] Glucose [Mass/volume] in Serum or Plasma [2345-7] 11/30/2024 12:20 PM 357 mg/dL N Blood chemistry[[id number]] Glucose [Mass/volume] in Serum or Plasma [2345-7] 11/30/2024 10:39 AM 271 mg/dL N Blood chemistry[[id number]] Glucose [Mass/volume] in Serum or Plasma [2345-7] 11/29/2024 05:53 PM 312 mg/dL N Blood chemistry[[id number]] Glucose [Mass/volume] in Serum or Plasma [2345-7] 11/29/2024 12:06 PM 420 mg/dL N Blood chemistry[[id number]] Glucose [Mass/volume] in Serum or Plasma [2345-7] 11/29/2024 11:39 AM 325 mg/dL N Blood chemistry[[id number]] Glucose [Mass/volume] in Serum or Plasma [2345-7] 11/29/2024 10:08 AM 209 mg/dL N Blood chemistry[[id number]] Glucose [Mass/volume] in Serum or Plasma [2345-7] 11/28/2024 11:52 AM 347 mg/dL N Blood chemistry[[id number]] Glucose [Mass/volume] in Serum or Plasma [2345-7] 11/28/2024 11:35 AM 378 mg/dL N Blood chemistry[[id number]] Glucose [Mass/volume] in Serum or Plasma [2345-7] 11/28/2024 10:40 AM 320 mg/dL N Blood chemistry[[id number]] Glucose [Mass/volume] in Serum or Plasma [2345-7] 11/28/2024 06:20 AM 355 mg/dL N Blood chemistry[[id number]] Glucose [Mass/volume] in Serum or Plasma [2345-7] 11/27/2024 12:52 PM 321 mg/dL N Blood chemistry[[id number]] Glucose [Mass/volume] in Serum or Plasma [2345-7] 11/27/2024 12:07 PM 417 mg/dL N Blood chemistry[[id number]] Glucose [Mass/volume] in Serum or Plasma [2345-7] 11/27/2024 10:33 AM 343 mg/dL N Blood chemistry[[id number]] Glucose [Mass/volume] in Serum or Plasma [2345-7] 11/27/2024 06:01 AM 431 mg/dL N Blood chemistry[[id number]] Glucose [Mass/volume] in Serum or Plasma [2345-7] 11/26/2024 04:18 PM 298 mg/dL N Blood chemistry[[id number]] Glucose [Mass/volume] in Serum or Plasma [2345-7] 11/26/2024 11:59 AM 262 mg/dL N Blood chemistry[[id number]] Glucose [Mass/volume] in Serum or Plasma [2345-7] 11/26/2024 11:31 AM 307 mg/dL N Blood chemistry[[id number]] Glucose [Mass/volume] in Serum or Plasma [2345-7] 11/26/2024 09:38 AM 214 mg/dL N Blood chemistry[[id number]] Glucose [Mass/volume] in Serum or Plasma [2345-7] 11/25/2024 04:33 PM 237 mg/dL N Blood chemistry[[id number]] Glucose [Mass/volume] in Serum or Plasma [2345-7] 11/25/2024 12:02 PM 284 mg/dL N Blood chemistry[[id number]] Glucose [Mass/volume] in Serum or Plasma [2345-7] 11/25/2024 12:01 PM 310 mg/dL N Blood chemistry[[id number]] Glucose [Mass/volume] in Serum or Plasma [2345-7] 11/25/2024 10:11 AM 235 mg/dL N Blood chemistry[[id number]] Glucose [Mass/volume] in Serum or Plasma [2345-7] 11/24/2024 04:46 PM 387 mg/dL N Blood chemistry[[id number]] Glucose [Mass/volume] in Serum or Plasma [2345-7] 11/24/2024 12:56 PM 318 mg/dL N Blood chemistry[[id number]] Glucose [Mass/volume] in Serum or Plasma [2345-7] 11/24/2024 12:15 PM 413 mg/dL N Blood chemistry[[id number]] Glucose [Mass/volume] in Serum or Plasma [2345-7] 11/24/2024 09:49 AM 283 mg/dL N Blood chemistry[[id number]] Glucose [Mass/volume] in Serum or Plasma [2345-7] 11/23/2024 04:24 PM 343 mg/dL N Blood chemistry[[id number]] Glucose [Mass/volume] in Serum or Plasma [2345-7] 11/23/2024 01:38 PM 448 mg/dL N Blood chemistry[[id number]] Glucose [Mass/volume] in Serum or Plasma [2345-7] 11/23/2024 12:06 PM 393 mg/dL N Blood chemistry[[id number]] Glucose [Mass/volume] in Serum or Plasma [2345-7] 11/23/2024 09:39 AM 280 mg/dL N Blood chemistry[[id number]] Glucose [Mass/volume] in Serum or Plasma [2345-7] 11/23/2024 07:49 AM 473 mg/dL N Blood chemistry[[id number]] Glucose [Mass/volume] in Serum or Plasma [2345-7] 11/22/2024 04:14 PM 444 mg/dL N Blood chemistry[[id number]] Glucose [Mass/volume] in Serum or Plasma [2345-7] 11/22/2024 09:15 AM 346 mg/dL N Blood chemistry[[id number]] Glucose [Mass/volume] in Serum or Plasma [2345-7] 11/21/2024 05:34 PM 404 mg/dL N Blood chemistry[[id number]] Glucose [Mass/volume] in Serum or Plasma [2345-7] 11/21/2024 02:12 PM 387 mg/dL N Blood chemistry[[id number]] Glucose [Mass/volume] in Serum or Plasma [2345-7] 11/21/2024 12:40 PM 362 mg/dL N Blood chemistry[[id number]] Glucose [Mass/volume] in Serum or Plasma [2345-7] 11/20/2024 04:18 PM 409 mg/dL N Blood chemistry[[id number]] Glucose [Mass/volume] in Serum or Plasma [2345-7] 11/20/2024 03:42 PM 423 mg/dL N Blood chemistry[[id number]] Glucose [Mass/volume] in Serum or Plasma [2345-7] 11/20/2024 01:02 PM 316 mg/dL N Blood chemistry[[id number]] Glucose [Mass/volume] in Serum or Plasma [2345-7] 11/20/2024 10:02 AM 337 mg/dL N Blood chemistry[[id number]] Glucose [Mass/volume] in Serum or Plasma [2345-7] 11/19/2024 04:31 PM 353 mg/dL N Blood chemistry[[id number]] Glucose [Mass/volume] in Serum or Plasma [2345-7] 11/19/2024 01:50 PM 344 mg/dL N Blood chemistry[[id number]] Glucose [Mass/volume] in Serum or Plasma [2345-7] 11/19/2024 11:55 AM 291 mg/dL N Blood chemistry[[id number]] Glucose [Mass/volume] in Serum or Plasma [2345-7] 11/19/2024 09:50 AM 275 mg/dL N Blood chemistry[[id number]] Glucose [Mass/volume] in Serum or Plasma [2345-7] 11/18/2024 04:25 PM 243 mg/dL N Blood chemistry[[id number]] Glucose [Mass/volume] in Serum or Plasma [2345-7] 11/18/2024 02:45 PM 334 mg/dL N Blood chemistry[[id number]] Glucose [Mass/volume] in Serum or Plasma [2345-7] 11/18/2024 11:50 AM 275 mg/dL N Blood chemistry[[id number]] Glucose [Mass/volume] in Serum or Plasma [2345-7] 11/18/2024 09:47 AM 231 mg/dL N Blood chemistry[[id number]] Glucose [Mass/volume] in Serum or Plasma [2345-7] 11/17/2024 04:03 PM 342 mg/dL N Blood chemistry[[id number]] Glucose [Mass/volume] in Serum or Plasma [2345-7] 11/17/2024 02:16 PM 226 mg/dL N Blood chemistry[[id number]] Glucose [Mass/volume] in Serum or Plasma [2345-7] 11/17/2024 11:07 AM 245 mg/dL N Blood chemistry[[id number]] Glucose [Mass/volume] in Serum or Plasma [2345-7] 11/17/2024 10:27 AM 234 mg/dL N Blood chemistry[[id number]] Glucose [Mass/volume] in Serum or Plasma [2345-7] 11/16/2024 05:49 PM 253 mg/dL N Blood chemistry[[id number]] Glucose [Mass/volume] in Serum or Plasma [2345-7] 11/16/2024 02:38 PM 312 mg/dL N Blood chemistry[[id number]] Glucose [Mass/volume] in Serum or Plasma [2345-7] 11/16/2024 12:25 PM 186 mg/dL N Blood chemistry[[id number]] Glucose [Mass/volume] in Serum or Plasma [2345-7] 11/16/2024 09:45 AM 200 mg/dL N Blood chemistry[[id number]] Glucose [Mass/volume] in Serum or Plasma [2345-7] 11/15/2024 04:15 PM 300 mg/dL N Blood chemistry[[id number]] Glucose [Mass/volume] in Serum or Plasma [2345-7] 11/15/2024 04:12 PM 284 mg/dL N Blood chemistry[[id number]] Glucose [Mass/volume] in Serum or Plasma [2345-7] 11/15/2024 01:50 PM 289 mg/dL N Blood chemistry[[id number]] Glucose [Mass/volume] in Serum or Plasma [2345-7] 11/15/2024 10:18 AM 172 mg/dL N Blood chemistry[[id number]] Glucose [Mass/volume] in Serum or Plasma [2345-7] 11/14/2024 04:54 PM 323 mg/dL N Blood chemistry[[id number]] Glucose [Mass/volume] in Serum or Plasma [2345-7] 11/14/2024 12:16 PM 349 mg/dL N Blood chemistry[[id number]] Glucose [Mass/volume] in Serum or Plasma [2345-7] 11/14/2024 12:08 PM 303 mg/dL N Blood chemistry[[id number]] Glucose [Mass/volume] in Serum or Plasma [2345-7] 11/14/2024 09:32 AM 282 mg/dL N Blood chemistry[[id number]] Glucose [Mass/volume] in Serum or Plasma [2345-7] 11/14/2024 06:35 AM 220 mg/dL N Blood chemistry[[id number]] Glucose [Mass/volume] in Serum or Plasma [2345-7] 11/13/2024 03:49 PM 314 mg/dL N Blood chemistry[[id number]] Glucose [Mass/volume] in Serum or Plasma [2345-7] 11/13/2024 01:25 PM 219 mg/dL N Blood chemistry[[id number]] Glucose [Mass/volume] in Serum or Plasma [2345-7] 11/13/2024 09:39 AM 240 mg/dL N Blood chemistry[[id number]] Glucose [Mass/volume] in Serum or Plasma [2345-7] 11/12/2024 03:56 PM 225 mg/dL N Blood chemistry[[id number]] Glucose [Mass/volume] in Serum or Plasma [2345-7] 11/12/2024 11:57 AM 249 mg/dL N Blood chemistry[[id number]] Glucose [Mass/volume] in Serum or Plasma [2345-7] 11/12/2024 09:32 AM 200 mg/dL N Blood chemistry[[id number]] Glucose [Mass/volume] in Serum or Plasma [2345-7] 11/12/2024 06:07 AM 284 mg/dL N Blood chemistry[[id number]] Glucose [Mass/volume] in Serum or Plasma [2345-7] 11/11/2024 05:46 PM 378 mg/dL N Blood chemistry[[id number]] Glucose [Mass/volume] in Serum or Plasma [2345-7] 11/11/2024 04:28 PM 243 mg/dL N Blood chemistry[[id number]] Glucose [Mass/volume] in Serum or Plasma [2345-7] 11/11/2024 02:21 PM 224 mg/dL N Blood chemistry[[id number]] Glucose [Mass/volume] in Serum or Plasma [2345-7] 11/11/2024 11:57 AM 240 mg/dL N Blood chemistry[[id number]] Glucose [Mass/volume] in Serum or Plasma [2345-7] 11/11/2024 09:41 AM 223 mg/dL N Blood chemistry[[id number]] Glucose [Mass/volume] in Serum or Plasma [2345-7] 11/10/2024 04:49 PM 348 mg/dL N Blood chemistry[[id number]] Glucose [Mass/volume] in Serum or Plasma [2345-7] 11/10/2024 11:53 AM 276 mg/dL N Blood chemistry[[id number]] Glucose [Mass/volume] in Serum or Plasma [2345-7] 11/10/2024 09:58 AM 188 mg/dL N Blood chemistry[[id number]] Glucose [Mass/volume] in Serum or Plasma [2345-7] 11/09/2024 04:20 PM 280 mg/dL N Blood chemistry[[id number]] Glucose [Mass/volume] in Serum or Plasma [2345-7] 11/09/2024 02:08 PM 315 mg/dL N Blood chemistry[[id number]] Glucose [Mass/volume] in Serum or Plasma [2345-7] 11/09/2024 11:53 AM 322 mg/dL N Blood chemistry[[id number]] Glucose [Mass/volume] in Serum or Plasma [2345-7] 11/09/2024 09:38 AM 370 mg/dL N Blood chemistry[[id number]] Glucose [Mass/volume] in Serum or Plasma [2345-7] 11/08/2024 05:24 PM 438 mg/dL N Blood chemistry[[id number]] Glucose [Mass/volume] in Serum or Plasma [2345-7] 11/08/2024 12:09 PM 253 mg/dL N Blood chemistry[[id number]] Glucose [Mass/volume] in Serum or Plasma [2345-7] 11/08/2024 09:26 AM 333 mg/dL N Blood chemistry[[id number]] Glucose [Mass/volume] in Serum or Plasma [2345-7] 11/07/2024 04:38 PM 344 mg/dL N Blood chemistry[[id number]] Glucose [Mass/volume] in Serum or Plasma [2345-7] 11/07/2024 01:29 PM 273 mg/dL N Blood chemistry[[id number]] Glucose [Mass/volume] in Serum or Plasma [2345-7] 11/07/2024 01:07 PM 351 mg/dL N Blood chemistry[[id number]] Glucose [Mass/volume] in Serum or Plasma [2345-7] 11/07/2024 10:23 AM 282 mg/dL N Blood chemistry[[id number]] Glucose [Mass/volume] in Serum or Plasma [2345-7] 11/06/2024 05:43 PM 419 mg/dL N Blood chemistry[[id number]] Glucose [Mass/volume] in Serum or Plasma [2345-7] 11/06/2024 01:45 PM 349 mg/dL N Blood chemistry[[id number]] Glucose [Mass/volume] in Serum or Plasma [2345-7] 11/06/2024 01:09 PM 365 mg/dL N Blood chemistry[[id number]] Glucose [Mass/volume] in Serum or Plasma [2345-7] 11/06/2024 10:34 AM 404 mg/dL N Blood chemistry[[id number]] Glucose [Mass/volume] in Serum or Plasma [2345-7] 11/05/2024 03:59 PM 347 mg/dL N Blood chemistry[[id number]] Glucose [Mass/volume] in Serum or Plasma [2345-7] 11/05/2024 02:14 PM 200 mg/dL N Blood chemistry[[id number]] Glucose [Mass/volume] in Serum or Plasma [2345-7] 11/05/2024 10:43 AM 200 mg/dL N Blood chemistry[[id number]] Glucose [Mass/volume] in Serum or Plasma [2345-7] 11/05/2024 09:09 AM 343 mg/dL N Blood chemistry[[id number]] Glucose [Mass/volume] in Serum or Plasma [2345-7] 11/04/2024 05:04 PM 287 mg/dL N Blood chemistry[[id number]] Glucose [Mass/volume] in Serum or Plasma [2345-7] 11/04/2024 01:45 PM 469 mg/dL N Blood chemistry[[id number]] Glucose [Mass/volume] in Serum or Plasma [2345-7] 11/04/2024 10:46 AM 144 mg/dL N Blood chemistry[[id number]] Glucose [Mass/volume] in Serum or Plasma [2345-7] 11/04/2024 10:29 AM 324 mg/dL N Blood chemistry[[id number]] Glucose [Mass/volume] in Serum or Plasma [2345-7] 11/03/2024 04:25 PM 329 mg/dL N Blood chemistry[[id number]] Glucose [Mass/volume] in Serum or Plasma [2345-7] 11/03/2024 01:55 PM 311 mg/dL N Blood chemistry[[id number]] Glucose [Mass/volume] in Serum or Plasma [2345-7] 11/03/2024 11:11 AM 234 mg/dL N Blood chemistry[[id number]] Glucose [Mass/volume] in Serum or Plasma [2345-7] 11/03/2024 10:29 AM 199 mg/dL N Blood chemistry[[id number]] Glucose [Mass/volume] in Serum or Plasma [2345-7] 11/02/2024 04:17 PM 407 mg/dL N Blood chemistry[[id number]] Glucose [Mass/volume] in Serum or Plasma [2345-7] 11/02/2024 12:35 PM 356 mg/dL N Blood chemistry[[id number]] Glucose [Mass/volume] in Serum or Plasma [2345-7] 11/02/2024 12:14 PM 234 mg/dL N Blood chemistry[[id number]] Glucose [Mass/volume] in Serum or Plasma [2345-7] 11/02/2024 10:38 AM 341 mg/dL N Blood chemistry[[id number]] Glucose [Mass/volume] in Serum or Plasma [2345-7] 11/01/2024 03:54 PM 416 mg/dL N Blood chemistry[[id number]] Glucose [Mass/volume] in Serum or Plasma [2345-7] 11/01/2024 12:01 PM 343 mg/dL N Blood chemistry[[id number]] Glucose [Mass/volume] in Serum or Plasma [2345-7] 11/01/2024 11:56 AM 366 mg/dL N Blood chemistry[[id number]] Glucose [Mass/volume] in Serum or Plasma [2345-7] 11/01/2024 09:17 AM 382 mg/dL N Blood chemistry[[id number]] Glucose [Mass/volume] in Serum or Plasma [2345-7] 10/31/2024 04:29 PM 365 mg/dL N Blood chemistry[[id number]] Glucose [Mass/volume] in Serum or Plasma [2345-7] 10/31/2024 12:49 PM 431 mg/dL N Blood chemistry[[id number]] Glucose [Mass/volume] in Serum or Plasma [2345-7] 10/31/2024 12:31 PM 292 mg/dL N Blood chemistry[[id number]] Glucose [Mass/volume] in Serum or Plasma [2345-7] 10/31/2024 09:30 AM 430 mg/dL N Blood chemistry[[id number]] Glucose [Mass/volume] in Serum or Plasma [2345-7] 10/30/2024 04:42 PM 395 mg/dL N Blood chemistry[[id number]] Glucose [Mass/volume] in Serum or Plasma [2345-7] 10/30/2024 12:57 PM 400 mg/dL N Blood chemistry[[id number]] Glucose [Mass/volume] in Serum or Plasma [2345-7] 10/30/2024 12:53 PM 379 mg/dL N Blood chemistry[[id number]] Glucose [Mass/volume] in Serum or Plasma [2345-7] 10/30/2024 09:57 AM 373 mg/dL N Blood chemistry[[id number]] Glucose [Mass/volume] in Serum or Plasma [2345-7] 10/29/2024 04:17 PM 386 mg/dL N Blood chemistry[[id number]] Glucose [Mass/volume] in Serum or Plasma [2345-7] 10/29/2024 01:49 PM 304 mg/dL N Blood chemistry[[id number]] Glucose [Mass/volume] in Serum or Plasma [2345-7] 10/29/2024 12:00 PM 333 mg/dL N Blood chemistry[[id number]] Glucose [Mass/volume] in Serum or Plasma [2345-7] 10/29/2024 09:42 AM 353 mg/dL N Blood chemistry[[id number]] Glucose [Mass/volume] in Serum or Plasma [2345-7] 10/28/2024 04:30 PM 404 mg/dL N Blood chemistry[[id number]] Glucose [Mass/volume] in Serum or Plasma [2345-7] 10/28/2024 01:02 PM 397 mg/dL N Blood chemistry[[id number]] Glucose [Mass/volume] in Serum or Plasma [2345-7] 10/28/2024 12:00 PM 330 mg/dL N Blood chemistry[[id number]] Glucose [Mass/volume] in Serum or Plasma [2345-7] 10/28/2024 09:35 AM 385 mg/dL N Blood chemistry[[id number]] Glucose [Mass/volume] in Serum or Plasma [2345-7] 10/27/2024 04:30 PM 452 mg/dL N Blood chemistry[[id number]] Glucose [Mass/volume] in Serum or Plasma [2345-7] 10/27/2024 03:06 PM 377 mg/dL N Blood chemistry[[id number]] Glucose [Mass/volume] in Serum or Plasma [2345-7] 10/27/2024 12:19 PM 313 mg/dL N Blood chemistry[[id number]] Glucose [Mass/volume] in Serum or Plasma [2345-7] 10/27/2024 09:35 AM 480 mg/dL N Blood chemistry[[id number]] Glucose [Mass/volume] in Serum or Plasma [2345-7] 10/26/2024 04:29 PM 368 mg/dL N Blood chemistry[[id number]] Glucose [Mass/volume] in Serum or Plasma [2345-7] 10/26/2024 02:00 PM 387 mg/dL N Blood chemistry[[id number]] Glucose [Mass/volume] in Serum or Plasma [2345-7] 10/26/2024 12:49 PM 272 mg/dL N Blood chemistry[[id number]] Glucose [Mass/volume] in Serum or Plasma [2345-7] 10/26/2024 09:29 AM 317 mg/dL N Blood chemistry[[id number]] Glucose [Mass/volume] in Serum or Plasma [2345-7] 10/25/2024 04:35 PM 476 mg/dL N Blood chemistry[[id number]] Glucose [Mass/volume] in Serum or Plasma [2345-7] 10/25/2024 01:08 PM 359 mg/dL N Blood chemistry[[id number]] Glucose [Mass/volume] in Serum or Plasma [2345-7] 10/25/2024 12:09 PM 372 mg/dL N Blood chemistry[[id number]] Glucose [Mass/volume] in Serum or Plasma [2345-7] 10/25/2024 09:51 AM 340 mg/dL N Blood chemistry[[id number]] Glucose [Mass/volume] in Serum or Plasma [2345-7] 10/25/2024 06:34 AM 400 mg/dL N Blood chemistry[[id number]] Glucose [Mass/volume] in Serum or Plasma [2345-7] 10/24/2024 05:36 PM 366 mg/dL N Blood chemistry[[id number]] Glucose [Mass/volume] in Serum or Plasma [2345-7] 10/24/2024 01:44 PM 268 mg/dL N Blood chemistry[[id number]] Glucose [Mass/volume] in Serum or Plasma [2345-7] 10/24/2024 10:06 AM 374 mg/dL N Blood chemistry[[id number]] Glucose [Mass/volume] in Serum or Plasma [2345-7] 10/23/2024 05:21 PM 380 mg/dL N Blood chemistry[[id number]] Glucose [Mass/volume] in Serum or Plasma [2345-7] 10/23/2024 11:39 AM 299 mg/dL N Blood chemistry[[id number]] Glucose [Mass/volume] in Serum or Plasma [2345-7] 10/23/2024 11:29 AM 396 mg/dL N Blood chemistry[[id number]] Glucose [Mass/volume] in Serum or Plasma [2345-7] 10/23/2024 10:56 AM 390 mg/dL N Blood chemistry[[id number]] Glucose [Mass/volume] in Serum or Plasma [2345-7] 10/22/2024 03:53 PM 495 mg/dL N Blood chemistry[[id number]] Glucose [Mass/volume] in Serum or Plasma [2345-7] 10/22/2024 03:31 PM 244 mg/dL N Blood chemistry[[id number]] Glucose [Mass/volume] in Serum or Plasma [2345-7] 10/22/2024 01:55 PM 252 mg/dL N Blood chemistry[[id number]] Glucose [Mass/volume] in Serum or Plasma [2345-7] 10/22/2024 09:26 AM 373 mg/dL N Blood chemistry[[id number]] Glucose [Mass/volume] in Serum or Plasma [2345-7] 10/21/2024 04:02 PM 328 mg/dL N Blood chemistry[[id number]] Glucose [Mass/volume] in Serum or Plasma [2345-7] 10/21/2024 03:19 PM 278 mg/dL N Blood chemistry[[id number]] Glucose [Mass/volume] in Serum or Plasma [2345-7] 10/21/2024 12:57 PM 275 mg/dL N Blood chemistry[[id number]] Glucose [Mass/volume] in Serum or Plasma [2345-7] 10/21/2024 09:08 AM 402 mg/dL N Blood chemistry[[id number]] Glucose [Mass/volume] in Serum or Plasma [2345-7] 10/20/2024 05:07 PM 343 mg/dL N Blood chemistry[[id number]] Glucose [Mass/volume] in Serum or Plasma [2345-7] 10/20/2024 11:49 AM 285 mg/dL N Blood chemistry[[id number]] Glucose [Mass/volume] in Serum or Plasma [2345-7] 10/20/2024 09:55 AM 407 mg/dL N Blood chemistry[[id number]] Glucose [Mass/volume] in Serum or Plasma [2345-7] 10/19/2024 04:29 PM 373 mg/dL N Blood chemistry[[id number]] Glucose [Mass/volume] in Serum or Plasma [2345-7] 10/19/2024 01:43 PM 376 mg/dL N Blood chemistry[[id number]] Glucose [Mass/volume] in Serum or Plasma [2345-7] 10/19/2024 11:46 AM 119 mg/dL N Blood chemistry[[id number]] Glucose [Mass/volume] in Serum or Plasma [2345-7] 10/19/2024 08:46 AM 383 mg/dL N Blood chemistry[[id number]] Glucose [Mass/volume] in Serum or Plasma [2345-7] 10/19/2024 06:03 AM 304 mg/dL N Blood chemistry[[id number]] Glucose [Mass/volume] in Serum or Plasma [2345-7] 10/18/2024 03:29 PM 440 mg/dL N Blood chemistry[[id number]] Glucose [Mass/volume] in Serum or Plasma [2345-7] 10/18/2024 10:49 AM 276 mg/dL N Blood chemistry[[id number]] Glucose [Mass/volume] in Serum or Plasma [2345-7] 10/18/2024 08:26 AM 331 mg/dL N Blood chemistry[[id number]] Glucose [Mass/volume] in Serum or Plasma [2345-7] 10/17/2024 03:44 PM 425 mg/dL N Blood chemistry[[id number]] Glucose [Mass/volume] in Serum or Plasma [2345-7] 10/17/2024 12:48 PM 415 mg/dL N Blood chemistry[[id number]] Glucose [Mass/volume] in Serum or Plasma [2345-7] 10/17/2024 11:31 AM 281 mg/dL N Blood chemistry[[id number]] Glucose [Mass/volume] in Serum or Plasma [2345-7] 10/17/2024 09:38 AM 318 mg/dL N Blood chemistry[[id number]] Glucose [Mass/volume] in Serum or Plasma [2345-7] 10/17/2024 08:55 AM 430 mg/dL N Blood chemistry[[id number]] Glucose [Mass/volume] in Serum or Plasma [2345-7] 10/16/2024 05:18 PM 358 mg/dL N Blood chemistry[[id number]] Glucose [Mass/volume] in Serum or Plasma [2345-7] 10/16/2024 12:06 PM 336 mg/dL N Blood chemistry[[id number]] Glucose [Mass/volume] in Serum or Plasma [2345-7] 10/16/2024 10:19 AM 357 mg/dL N Blood chemistry[[id number]] Glucose [Mass/volume] in Serum or Plasma [2345-7] 10/15/2024 04:04 PM 361 mg/dL N Blood chemistry[[id number]] Glucose [Mass/volume] in Serum or Plasma [2345-7] 10/15/2024 01:29 PM 400 mg/dL N Blood chemistry[[id number]] Glucose [Mass/volume] in Serum or Plasma [2345-7] 10/15/2024 12:13 PM 239 mg/dL N Blood chemistry[[id number]] Glucose [Mass/volume] in Serum or Plasma [2345-7] 10/15/2024 10:27 AM 328 mg/dL N Blood chemistry[[id number]] Glucose [Mass/volume] in Serum or Plasma [2345-7] 10/14/2024 03:52 PM 311 mg/dL N Blood chemistry[[id number]] Glucose [Mass/volume] in Serum or Plasma [2345-7] 10/14/2024 02:41 PM 400 mg/dL N Blood chemistry[[id number]] Glucose [Mass/volume] in Serum or Plasma [2345-7] 10/14/2024 11:04 AM 270 mg/dL N Blood chemistry[[id number]] Glucose [Mass/volume] in Serum or Plasma [2345-7] 10/14/2024 09:16 AM 381 mg/dL N Blood chemistry[[id number]] Glucose [Mass/volume] in Serum or Plasma [2345-7] 10/14/2024 06:07 AM 386 mg/dL N Blood chemistry[[id number]] Glucose [Mass/volume] in Serum or Plasma [2345-7] 10/13/2024 11:48 AM 266 mg/dL N Blood chemistry[[id number]] Glucose [Mass/volume] in Serum or Plasma [2345-7] 10/13/2024 10:39 AM 318 mg/dL N Blood chemistry[[id number]] Glucose [Mass/volume] in Serum or Plasma [2345-7] 10/13/2024 06:02 AM 395 mg/dL N Blood chemistry[[id number]] Glucose [Mass/volume] in Serum or Plasma [2345-7] 10/12/2024 05:06 PM 278 mg/dL N Blood chemistry[[id number]] Glucose [Mass/volume] in Serum or Plasma [2345-7] 10/12/2024 12:30 PM 297 mg/dL N Blood chemistry[[id number]] Glucose [Mass/volume] in Serum or Plasma [2345-7] 10/12/2024 11:36 AM 249 mg/dL N Blood chemistry[[id number]] Glucose [Mass/volume] in Serum or Plasma [2345-7] 10/12/2024 09:50 AM 223 mg/dL N Blood chemistry[[id number]] Glucose [Mass/volume] in Serum or Plasma [2345-7] 10/11/2024 03:49 PM 400 mg/dL N Blood chemistry[[id number]] Glucose [Mass/volume] in Serum or Plasma [2345-7] 10/11/2024 01:42 PM 255 mg/dL N Blood chemistry[[id number]] Glucose [Mass/volume] in Serum or Plasma [2345-7] 10/11/2024 10:25 AM 400 mg/dL N Blood chemistry[[id number]] Glucose [Mass/volume] in Serum or Plasma [2345-7] 10/11/2024 09:59 AM 315 mg/dL N Blood chemistry[[id number]] Glucose [Mass/volume] in Serum or Plasma [2345-7] 10/11/2024 06:01 AM 267 mg/dL N Blood chemistry[[id number]] Glucose [Mass/volume] in Serum or Plasma [2345-7] 10/10/2024 04:02 PM 304 mg/dL N Blood chemistry[[id number]] Glucose [Mass/volume] in Serum or Plasma [2345-7] 10/10/2024 12:57 PM 167 mg/dL N Blood chemistry[[id number]] Glucose [Mass/volume] in Serum or Plasma [2345-7] 10/10/2024 09:43 AM 268 mg/dL N Blood chemistry[[id number]] Glucose [Mass/volume] in Serum or Plasma [2345-7] 10/09/2024 04:25 PM 296 mg/dL N Blood chemistry[[id number]] Glucose [Mass/volume] in Serum or Plasma [2345-7] 10/09/2024 12:41 PM 316 mg/dL N Blood chemistry[[id number]] Glucose [Mass/volume] in Serum or Plasma [2345-7] 10/09/2024 12:22 PM 218 mg/dL N Blood chemistry[[id number]] Glucose [Mass/volume] in Serum or Plasma [2345-7] 10/09/2024 09:38 AM 278 mg/dL N Blood chemistry[[id number]] Glucose [Mass/volume] in Serum or Plasma [2345-7] 10/08/2024 04:27 PM 317 mg/dL N Blood chemistry[[id number]] Glucose [Mass/volume] in Serum or Plasma [2345-7] 10/08/2024 02:58 PM 287 mg/dL N Blood chemistry[[id number]] Glucose [Mass/volume] in Serum or Plasma [2345-7] 10/08/2024 12:36 PM 171 mg/dL N Blood chemistry[[id number]] Glucose [Mass/volume] in Serum or Plasma [2345-7] 10/08/2024 09:57 AM 229 mg/dL N Blood chemistry[[id number]] Glucose [Mass/volume] in Serum or Plasma [2345-7] 10/07/2024 02:00 PM 375 mg/dL N Blood chemistry[[id number]] Glucose [Mass/volume] in Serum or Plasma [2345-7] 10/07/2024 09:23 AM 268 mg/dL N Blood chemistry[[id number]] Glucose [Mass/volume] in Serum or Plasma [2345-7] 09/04/2024 04:52 PM 350 mg/dL N Blood chemistry[[id number]] Glucose [Mass/volume] in Serum or Plasma [2345-7] 09/04/2024 09:48 AM 315 mg/dL N Blood chemistry[[id number]] Glucose [Mass/volume] in Serum or Plasma [2345-7] 09/04/2024 01:44 PM 210 mg/dL N Blood chemistry[[id number]] Glucose [Mass/volume] in Serum or Plasma [2345-7] 09/03/2024 12:26 PM 203 mg/dL N Blood chemistry[[id number]] Glucose [Mass/volume] in Serum or Plasma [2345-7] 09/03/2024 04:09 PM 214 mg/dL N Blood chemistry[[id number]] Glucose [Mass/volume] in Serum or Plasma [2345-7] 09/03/2024 09:20 AM 248 mg/dL N Blood chemistry[[id number]] Glucose [Mass/volume] in Serum or Plasma [2345-7] 09/03/2024 12:12 PM 214 mg/dL N Blood chemistry[[id number]] Glucose [Mass/volume] in Serum or Plasma [2345-7] 09/02/2024 01:54 PM 281 mg/dL N Blood chemistry[[id number]] Glucose [Mass/volume] in Serum or Plasma [2345-7] 09/02/2024 09:27 AM 197 mg/dL N Blood chemistry[[id number]] Glucose [Mass/volume] in Serum or Plasma [2345-7] 09/02/2024 06:51 AM 233 mg/dL N Blood chemistry[[id number]] Glucose [Mass/volume] in Serum or Plasma [2345-7] 09/02/2024 12:11 PM 244 mg/dL N Blood chemistry[[id number]] Glucose [Mass/volume] in Serum or Plasma [2345-7] 09/01/2024 01:59 PM 235 mg/dL N Blood chemistry[[id number]] Glucose [Mass/volume] in Serum or Plasma [2345-7] 09/01/2024 04:37 PM 282 mg/dL N Blood chemistry[[id number]] Glucose [Mass/volume] in Serum or Plasma [2345-7] 09/01/2024 09:36 AM 415 mg/dL N Blood chemistry[[id number]] Glucose [Mass/volume] in Serum or Plasma [2345-7] 09/01/2024 11:55 AM 248 mg/dL N Blood chemistry[[id number]] Glucose [Mass/volume] in Serum or Plasma [2345-7] 08/31/2024 01:10 PM 331 mg/dL N Blood chemistry[[id number]] Glucose [Mass/volume] in Serum or Plasma [2345-7] 08/31/2024 04:23 PM 243 mg/dL N Blood chemistry[[id number]] Glucose [Mass/volume] in Serum or Plasma [2345-7] 08/31/2024 09:45 AM 178 mg/dL N Blood chemistry[[id number]] Glucose [Mass/volume] in Serum or Plasma [2345-7] 08/31/2024 12:00 PM 237 mg/dL N Blood chemistry[[id number]] Glucose [Mass/volume] in Serum or Plasma [2345-7] 08/30/2024 12:19 PM 371 mg/dL N Blood chemistry[[id number]] Glucose [Mass/volume] in Serum or Plasma [2345-7] 08/30/2024 04:37 PM 312 mg/dL N Blood chemistry[[id number]] Glucose [Mass/volume] in Serum or Plasma [2345-7] 08/30/2024 09:12 AM 267 mg/dL N Blood chemistry[[id number]] Glucose [Mass/volume] in Serum or Plasma [2345-7] 08/30/2024 10:56 AM 248 mg/dL N Blood chemistry[[id number]] Glucose [Mass/volume] in Serum or Plasma [2345-7] 08/29/2024 02:16 PM 400 mg/dL N Blood chemistry[[id number]] Glucose [Mass/volume] in Serum or Plasma [2345-7] 08/29/2024 04:45 PM 309 mg/dL N Blood chemistry[[id number]] Glucose [Mass/volume] in Serum or Plasma [2345-7] 08/29/2024 09:26 AM 425 mg/dL N Blood chemistry[[id number]] Glucose [Mass/volume] in Serum or Plasma [2345-7] 08/29/2024 12:50 PM 243 mg/dL N Blood chemistry[[id number]] Glucose [Mass/volume] in Serum or Plasma [2345-7] 08/29/2024 06:23 AM 326 mg/dL N Blood chemistry[[id number]] Glucose [Mass/volume] in Serum or Plasma [2345-7] 08/28/2024 04:06 PM 274 mg/dL N Blood chemistry[[id number]] Glucose [Mass/volume] in Serum or Plasma [2345-7] 08/28/2024 09:20 AM 335 mg/dL N Blood chemistry[[id number]] Glucose [Mass/volume] in Serum or Plasma [2345-7] 08/28/2024 12:44 PM 210 mg/dL N Blood chemistry[[id number]] Glucose [Mass/volume] in Serum or Plasma [2345-7] 08/27/2024 02:39 PM 262 mg/dL N Blood chemistry[[id number]] Glucose [Mass/volume] in Serum or Plasma [2345-7] 08/27/2024 04:46 PM 282 mg/dL N Blood chemistry[[id number]] Glucose [Mass/volume] in Serum or Plasma [2345-7] 08/27/2024 09:10 AM 237 mg/dL N Blood chemistry[[id number]] Glucose [Mass/volume] in Serum or Plasma [2345-7] 08/27/2024 01:33 PM 198 mg/dL N Blood chemistry[[id number]] Glucose [Mass/volume] in Serum or Plasma [2345-7] 08/26/2024 03:23 PM 279 mg/dL N Blood chemistry[[id number]] Glucose [Mass/volume] in Serum or Plasma [5-7] 08/26/2024 04:05 PM 278 mg/dL N Blood chemistry[[id number]] Glucose [Mass/volume] in Serum or Plasma [2345-7] 08/26/2024 10:05 AM 210 mg/dL N Blood chemistry[[id number]] Glucose [Mass/volume] in Serum or Plasma [2345-7] 08/26/2024 12:50 PM 223 mg/dL N Blood chemistry[[id number]] Glucose [Mass/volume] in Serum or Plasma [2345-7] 08/25/2024 03:53 PM 325 mg/dL N Blood chemistry[[id number]] Glucose [Mass/volume] in Serum or Plasma [2345-7] 08/25/2024 05:12 PM 234 mg/dL N Blood chemistry[[id number]] Glucose [Mass/volume] in Serum or Plasma [2345-7] 08/25/2024 09:54 AM 242 mg/dL N Blood chemistry[[id number]] Glucose [Mass/volume] in Serum or Plasma [2345-7] 08/25/2024 01:01 PM 218 mg/dL N Blood chemistry[[id number]] Glucose [Mass/volume] in Serum or Plasma [2345-7] 08/24/2024 12:42 PM 302 mg/dL N Blood chemistry[[id number]] Glucose [Mass/volume] in Serum or Plasma [2345-7] 08/24/2024 04:33 PM 344 mg/dL N Blood chemistry[[id number]] Glucose [Mass/volume] in Serum or Plasma [2345-7] 08/24/2024 09:19 AM 226 mg/dL N Blood chemistry[[id number]] Glucose [Mass/volume] in Serum or Plasma [2345-7] 08/24/2024 12:05 PM 237 mg/dL N Blood chemistry[[id number]] Glucose [Mass/volume] in Serum or Plasma [2345-7] 08/23/2024 02:59 PM 358 mg/dL N Blood chemistry[[id number]] Glucose [Mass/volume] in Serum or Plasma [2345-7] 08/23/2024 04:21 PM 337 mg/dL N Blood chemistry[[id number]] Glucose [Mass/volume] in Serum or Plasma [2345-7] 08/23/2024 09:38 AM 196 mg/dL N Blood chemistry[[id number]] Glucose [Mass/volume] in Serum or Plasma [2345-7] 08/23/2024 11:24 AM 265 mg/dL N Blood chemistry[[id number]] Glucose [Mass/volume] in Serum or Plasma [2345-7] 08/22/2024 01:01 PM 349 mg/dL N Blood chemistry[[id number]] Glucose [Mass/volume] in Serum or Plasma [2345-7] 08/22/2024 04:23 PM 329 mg/dL N Blood chemistry[[id number]] Glucose [Mass/volume] in Serum or Plasma [2345-7] 08/22/2024 09:40 AM 265 mg/dL N Blood chemistry[[id number]] Glucose [Mass/volume] in Serum or Plasma [2345-7] 08/22/2024 12:28 PM 213 mg/dL N Blood chemistry[[id number]] Glucose [Mass/volume] in Serum or Plasma [2345-7] 08/21/2024 01:02 PM 339 mg/dL N Blood chemistry[[id number]] Glucose [Mass/volume] in Serum or Plasma [2345-7] 08/21/2024 04:36 PM 300 mg/dL N Blood chemistry[[id number]] Glucose [Mass/volume] in Serum or Plasma [2345-7] 08/21/2024 09:28 AM 324 mg/dL N Blood chemistry[[id number]] Glucose [Mass/volume] in Serum or Plasma [2345-7] 08/21/2024 01:27 PM 216 mg/dL N Blood chemistry[[id number]] Glucose [Mass/volume] in Serum or Plasma [2345-7] 08/20/2024 02:14 PM 195 mg/dL N Blood chemistry[[id number]] Glucose [Mass/volume] in Serum or Plasma [2345-7] 08/20/2024 04:17 PM 301 mg/dL N Blood chemistry[[id number]] Glucose [Mass/volume] in Serum or Plasma [2345-7] 08/20/2024 09:08 AM 271 mg/dL N Blood chemistry[[id number]] Glucose [Mass/volume] in Serum or Plasma [2345-7] 08/20/2024 12:01 PM 206 mg/dL N Blood chemistry[[id number]] Glucose [Mass/volume] in Serum or Plasma [2345-7] 08/19/2024 02:03 PM 202 mg/dL N Blood chemistry[[id number]] Glucose [Mass/volume] in Serum or Plasma [2345-7] 08/19/2024 04:29 PM 235 mg/dL N Blood chemistry[[id number]] Glucose [Mass/volume] in Serum or Plasma [2345-7] 08/19/2024 09:21 AM 325 mg/dL N Blood chemistry[[id number]] Glucose [Mass/volume] in Serum or Plasma [2345-7] 08/19/2024 12:07 PM 200 mg/dL N Blood chemistry[[id number]] Glucose [Mass/volume] in Serum or Plasma [2345-7] 08/18/2024 02:07 PM 200 mg/dL N Blood chemistry[[id number]] Glucose [Mass/volume] in Serum or Plasma [2345-7] 08/18/2024 04:38 PM 357 mg/dL N Blood chemistry[[id number]] Glucose [Mass/volume] in Serum or Plasma [2345-7] 08/18/2024 09:34 AM 322 mg/dL N Blood chemistry[[id number]] Glucose [Mass/volume] in Serum or Plasma [2345-7] 08/18/2024 12:26 PM 224 mg/dL N Blood chemistry[[id number]] Glucose [Mass/volume] in Serum or Plasma [2345-7] 08/17/2024 02:55 PM 325 mg/dL N Blood chemistry[[id number]] Glucose [Mass/volume] in Serum or Plasma [2345-7] 08/17/2024 04:20 PM 307 mg/dL N Blood chemistry[[id number]] Glucose [Mass/volume] in Serum or Plasma [2345-7] 08/17/2024 09:24 AM 237 mg/dL N Blood chemistry[[id number]] Glucose [Mass/volume] in Serum or Plasma [2345-7] 08/17/2024 12:10 PM 236 mg/dL N Blood chemistry[[id number]] Glucose [Mass/volume] in Serum or Plasma [2345-7] 08/16/2024 04:02 PM 282 mg/dL N Blood chemistry[[id number]] Glucose [Mass/volume] in Serum or Plasma [2345-7] 08/16/2024 04:46 PM 233 mg/dL N Blood chemistry[[id number]] Glucose [Mass/volume] in Serum or Plasma [2345-7] 08/16/2024 09:36 AM 286 mg/dL N Blood chemistry[[id number]] Glucose [Mass/volume] in Serum or Plasma [2345-7] 08/16/2024 01:45 PM 272 mg/dL N Blood chemistry[[id number]] Glucose [Mass/volume] in Serum or Plasma [2345-7] 08/15/2024 01:36 PM 400 mg/dL N Blood chemistry[[id number]] Glucose [Mass/volume] in Serum or Plasma [2345-7] 08/15/2024 09:18 AM 287 mg/dL N Blood chemistry[[id number]] Glucose [Mass/volume] in Serum or Plasma [2345-7] 08/15/2024 12:15 PM 198 mg/dL N Blood chemistry[[id number]] Glucose [Mass/volume] in Serum or Plasma [2345-7] 08/14/2024 02:30 PM 326 mg/dL N Blood chemistry[[id number]] Glucose [Mass/volume] in Serum or Plasma [2345-7] 08/14/2024 05:54 PM 432 mg/dL N Blood chemistry[[id number]] Glucose [Mass/volume] in Serum or Plasma [2345-7] 08/14/2024 10:55 AM 322 mg/dL N Blood chemistry[[id number]] Glucose [Mass/volume] in Serum or Plasma [2345-7] 08/14/2024 12:57 PM 280 mg/dL N Blood chemistry[[id number]] Glucose [Mass/volume] in Serum or Plasma [2345-7] 08/13/2024 02:55 PM 224 mg/dL N Blood chemistry[[id number]] Glucose [Mass/volume] in Serum or Plasma [2345-7] 08/13/2024 04:23 PM 367 mg/dL N Blood chemistry[[id number]] Glucose [Mass/volume] in Serum or Plasma [2345-7] 08/13/2024 09:15 AM 346 mg/dL N Blood chemistry[[id number]] Glucose [Mass/volume] in Serum or Plasma [2345-7] 08/13/2024 11:48 AM 241 mg/dL N Blood chemistry[[id number]] Glucose [Mass/volume] in Serum or Plasma [2345-7] 08/12/2024 02:59 PM 212 mg/dL N Blood chemistry[[id number]] Glucose [Mass/volume] in Serum or Plasma [2345-7] 08/12/2024 03:49 PM 342 mg/dL N Blood chemistry[[id number]] Glucose [Mass/volume] in Serum or Plasma [2345-7] 08/12/2024 12:57 PM 258 mg/dL N Blood chemistry[[id number]] Glucose [Mass/volume] in Serum or Plasma [2345-7] 08/12/2024 09:30 AM 383 mg/dL N Blood chemistry[[id number]] Glucose [Mass/volume] in Serum or Plasma [2345-7] 08/11/2024 04:32 PM 274 mg/dL N Blood chemistry[[id number]] Glucose [Mass/volume] in Serum or Plasma [2345-7] 08/11/2024 05:16 PM 284 mg/dL N Blood chemistry[[id number]] Glucose [Mass/volume] in Serum or Plasma [2345-7] 08/11/2024 09:38 AM 244 mg/dL N Blood chemistry[[id number]] Glucose [Mass/volume] in Serum or Plasma [2345-7] 08/11/2024 11:51 AM 231 mg/dL N Blood chemistry[[id number]] Glucose [Mass/volume] in Serum or Plasma [2345-7] 08/10/2024 01:44 PM 400 mg/dL N Blood chemistry[[id number]] Glucose [Mass/volume] in Serum or Plasma [2345-7] 08/10/2024 05:33 PM 386 mg/dL N Blood chemistry[[id number]] Glucose [Mass/volume] in Serum or Plasma [2345-7] 08/10/2024 09:23 AM 345 mg/dL N Blood chemistry[[id number]] Glucose [Mass/volume] in Serum or Plasma [2345-7] 08/10/2024 12:01 PM 219 mg/dL N Blood chemistry[[id number]] Glucose [Mass/volume] in Serum or Plasma [2345-7] 08/09/2024 01:52 PM 400 mg/dL N Blood chemistry[[id number]] Glucose [Mass/volume] in Serum or Plasma [2345-7] 08/08/2024 01:17 PM 386 mg/dL N Blood chemistry[[id number]] Glucose [Mass/volume] in Serum or Plasma [2345-7] 08/07/2024 03:43 PM 369 mg/dL N Blood chemistry[[id number]] Glucose [Mass/volume] in Serum or Plasma [2345-7] 08/07/2024 06:38 AM 345 mg/dL N Blood chemistry[[id number]] Glucose [Mass/volume] in Serum or Plasma [2345-7] 08/07/2024 02:39 PM 371 mg/dL N Blood chemistry[[id number]] Glucose [Mass/volume] in Serum or Plasma [2345-7] 08/06/2024 02:00 PM 278 mg/dL N Blood chemistry[[id number]] Glucose [Mass/volume] in Serum or Plasma [2345-7] 08/06/2024 04:36 PM 354 mg/dL N Blood chemistry[[id number]] Glucose [Mass/volume] in Serum or Plasma [2345-7] 08/06/2024 09:15 AM 348 mg/dL N Blood chemistry[[id number]] Glucose [Mass/volume] in Serum or Plasma [2345-7] 08/06/2024 12:39 PM 271 mg/dL N Blood chemistry[[id number]] Glucose [Mass/volume] in Serum or Plasma [2345-7] 08/05/2024 02:52 PM 341 mg/dL N Blood chemistry[[id number]] Glucose [Mass/volume] in Serum or Plasma [2345-7] 08/05/2024 04:21 PM 381 mg/dL N Blood chemistry[[id number]] Glucose [Mass/volume] in Serum or Plasma [2345-7] 08/05/2024 09:31 AM 351 mg/dL N Blood chemistry[[id number]] Glucose [Mass/volume] in Serum or Plasma [2345-7] 08/05/2024 12:05 PM 231 mg/dL N Blood chemistry[[id number]] Glucose [Mass/volume] in Serum or Plasma [2345-7] 08/04/2024 04:53 PM 200 mg/dL N Blood chemistry[[id number]] Glucose [Mass/volume] in Serum or Plasma [2345-7] 08/04/2024 04:35 PM 392 mg/dL N Blood chemistry[[id number]] Glucose [Mass/volume] in Serum or Plasma [2345-7] 08/04/2024 10:13 AM 422 mg/dL N Blood chemistry[[id number]] Glucose [Mass/volume] in Serum or Plasma [2345-7] 08/04/2024 12:32 PM 272 mg/dL N Blood chemistry[[id number]] Glucose [Mass/volume] in Serum or Plasma [2345-7] 08/03/2024 01:25 PM 400 mg/dL N Blood chemistry[[id number]] Glucose [Mass/volume] in Serum or Plasma [2345-7] 08/03/2024 04:28 PM 345 mg/dL N Blood chemistry[[id number]] Glucose [Mass/volume] in Serum or Plasma [2345-7] 08/03/2024 10:11 AM 361 mg/dL N Blood chemistry[[id number]] Glucose [Mass/volume] in Serum or Plasma [2345-7] 08/03/2024 12:48 PM 258 mg/dL N Blood chemistry[[id number]] Glucose [Mass/volume] in Serum or Plasma [2345-7] 08/02/2024 12:41 PM 400 mg/dL N Blood chemistry[[id number]] Glucose [Mass/volume] in Serum or Plasma [2345-7] 08/02/2024 04:16 PM 391 mg/dL N Blood chemistry[[id number]] Glucose [Mass/volume] in Serum or Plasma [2345-7] 08/02/2024 09:39 AM 326 mg/dL N Blood chemistry[[id number]] Glucose [Mass/volume] in Serum or Plasma [2345-7] 08/02/2024 12:12 PM 259 mg/dL N Blood chemistry[[id number]] Glucose [Mass/volume] in Serum or Plasma [2345-7] 08/02/2024 05:31 PM 400 mg/dL N Blood chemistry[[id number]] Glucose [Mass/volume] in Serum or Plasma [2345-7] 08/01/2024 04:46 PM 362 mg/dL N Blood chemistry[[id number]] Glucose [Mass/volume] in Serum or Plasma [2345-7] 08/01/2024 10:00 AM 339 mg/dL N Blood chemistry[[id number]] Glucose [Mass/volume] in Serum or Plasma [2345-7] 08/01/2024 11:58 AM 264 mg/dL N Blood chemistry[[id number]] Glucose [Mass/volume] in Serum or Plasma [2345-7] 07/31/2024 12:55 PM 400 mg/dL N Blood chemistry[] Glucose [Mass/volume] in Serum or Plasma [2345-7] 07/31/2024 05:18 PM 265 mg/dL N Blood chemistry[] Glucose [Mass/volume] in Serum or Plasma [2345-7] 07/31/2024 09:14 AM 218 mg/dL N Blood chemistry[] Glucose [Mass/volume] in Serum or Plasma [2345-7] 07/31/2024 02:09 PM 232 mg/dL N Blood chemistry[] Glucose [Mass/volume] in Serum or Plasma [2345-7] 07/30/2024 12:49 PM 378 mg/dL N Blood chemistry[] Glucose [Mass/volume] in Serum or Plasma [2345-7] 07/30/2024 04:40 PM 365 mg/dL N Blood chemistry[] Glucose [Mass/volume] in Serum or Plasma [2345-7] 07/30/2024 02:40 PM 211 mg/dL N Blood chemistry[[id number]] Glucose [Mass/volume] in Serum or Plasma [2345-7] 07/30/2024 09:22 AM 237 mg/dL N Blood chemistry[] Glucose [Mass/volume] in Serum or Plasma [2345-7] 07/29/2024 01:44 PM 398 mg/dL N Blood chemistry[] Glucose [Mass/volume] in Serum or Plasma [2345-7] 07/29/2024 04:16 PM 311 mg/dL N Blood chemistry[[id number]] Glucose [Mass/volume] in Serum or Plasma [2345-7] 07/29/2024 09:17 AM 335 mg/dL N Blood chemistry[[id number]] Glucose [Mass/volume] in Serum or Plasma [2345-7] 07/29/2024 01:37 PM 205 mg/dL N Blood chemistry[[id number]] Glucose [Mass/volume] in Serum or Plasma [2345-7] 07/28/2024 02:36 PM 321 mg/dL N Blood chemistry[[id number]] Glucose [Mass/volume] in Serum or Plasma [2345-7] 07/28/2024 04:19 PM 274 mg/dL N Blood chemistry[[id number]] Glucose [Mass/volume] in Serum or Plasma [2345-7] 07/28/2024 09:12 AM 248 mg/dL N Blood chemistry[[id number]] Glucose [Mass/volume] in Serum or Plasma [2345-7] 07/28/2024 11:35 AM 199 mg/dL N Blood chemistry[[id number]] Glucose [Mass/volume] in Serum or Plasma [2345-7] 07/27/2024 01:21 PM 400 mg/dL N Blood chemistry[[id number]] Glucose [Mass/volume] in Serum or Plasma [2345-7] 07/27/2024 04:29 PM 327 mg/dL N Blood chemistry[[id number]] Glucose [Mass/volume] in Serum or Plasma [2345-7] 07/27/2024 09:25 AM 303 mg/dL N Blood chemistry[[id number]] Glucose [Mass/volume] in Serum or Plasma [2345-7] 07/27/2024 12:52 PM 234 mg/dL N Blood chemistry[[id number]] Glucose [Mass/volume] in Serum or Plasma [2345-7] 07/26/2024 01:19 PM 325 mg/dL N Blood chemistry[[id number]] Glucose [Mass/volume] in Serum or Plasma [2345-7] 07/26/2024 04:33 PM 372 mg/dL N Blood chemistry[[id number]] Glucose [Mass/volume] in Serum or Plasma [2345-7] 07/26/2024 09:27 AM 339 mg/dL N Blood chemistry[[id number]] Glucose [Mass/volume] in Serum or Plasma [2345-7] 07/26/2024 12:41 PM 250 mg/dL N Blood chemistry[[id number]] Glucose [Mass/volume] in Serum or Plasma [2345-7] 07/25/2024 02:08 PM 383 mg/dL N Blood chemistry[[id number]] Glucose [Mass/volume] in Serum or Plasma [2345-7] 07/25/2024 04:26 PM 377 mg/dL N Blood chemistry[[id number]] Glucose [Mass/volume] in Serum or Plasma [2345-7] 07/25/2024 09:29 AM 302 mg/dL N Blood chemistry[[id number]] Glucose [Mass/volume] in Serum or Plasma [2345-7] 07/25/2024 12:33 PM 231 mg/dL N Blood chemistry[[id number]] Glucose [Mass/volume] in Serum or Plasma [2345-7] 2024 12:35 PM 400 mg/dL N Blood chemistry[[id number]] Glucose [Mass/volume] in Serum or Plasma [2345-7] 2024 04:05 PM 395 mg/dL N Blood chemistry[[id number]] Glucose [Mass/volume] in Serum or Plasma [2345-7] 2024 09:14 AM 373 mg/dL N Blood chemistry[[id number]] Glucose [Mass/volume] in Serum or Plasma [2345-7] 2024 12:07 PM 272 mg/dL N Blood chemistry[[id number]] Glucose [Mass/volume] in Serum or Plasma [2345-7] 07/23/2024 01:21 PM 398 mg/dL N Blood chemistry[[id number]] Glucose [Mass/volume] in Serum or Plasma [2345-7] 07/23/2024 05:11 PM 285 mg/dL N Blood chemistry[[id number]] Glucose [Mass/volume] in Serum or Plasma [2345-7] 07/23/2024 09:20 AM 473 mg/dL N Blood chemistry[[id number]] Glucose [Mass/volume] in Serum or Plasma [2345-7] 07/23/2024 01:07 PM 211 mg/dL N Blood chemistry[[id number]] Glucose [Mass/volume] in Serum or Plasma [2345-7] 07/22/2024 01:06 PM 395 mg/dL N Glucose [Mass/volume] in Serum or Plasma [2345-7] 07/22/2024 01:06 PM 281 mg/dL N Blood chemistry[[id number]] Glucose [Mass/volume] in Serum or Plasma [2345-7] 07/22/2024 04:44 PM 360 mg/dL N Blood chemistry[[id number]] Glucose [Mass/volume] in Serum or Plasma [2345-7] 07/22/2024 10:26 AM 396 mg/dL N Blood chemistry[[id number]] Glucose [Mass/volume] in Serum or Plasma [2345-7] 07/21/2024 02:01 PM 378 mg/dL N Blood chemistry[[id number]] Glucose [Mass/volume] in Serum or Plasma [2345-7] 07/21/2024 06:06 AM 339 mg/dL N Blood chemistry[[id number]] Glucose [Mass/volume] in Serum or Plasma [2345-7] 07/21/2024 12:14 PM 202 mg/dL N Blood chemistry[[id number]] Glucose [Mass/volume] in Serum or Plasma [2345-7] 07/20/2024 02:01 PM 399 mg/dL N Blood chemistry[[id number]] Glucose [Mass/volume] in Serum or Plasma [2345-7] 07/20/2024 04:53 PM 355 mg/dL N Blood chemistry[[id number]] Glucose [Mass/volume] in Serum or Plasma [2345-7] 07/20/2024 09:28 AM 358 mg/dL N Blood chemistry[[id number]] Glucose [Mass/volume] in Serum or Plasma [2345-7] 07/20/2024 11:58 AM 215 mg/dL N Blood chemistry[[id number]] Glucose [Mass/volume] in Serum or Plasma [2345-7] 07/19/2024 12:34 PM 400 mg/dL N Blood chemistry[[id number]] Glucose [Mass/volume] in Serum or Plasma [2345-7] 07/19/2024 04:18 PM 393 mg/dL N Blood chemistry[[id number]] Glucose [Mass/volume] in Serum or Plasma [2345-7] 07/19/2024 09:08 AM 413 mg/dL N Blood chemistry[[id number]] Glucose [Mass/volume] in Serum or Plasma [2345-7] 07/19/2024 12:21 PM 216 mg/dL N Blood chemistry[[id number]] Glucose [Mass/volume] in Serum or Plasma [2345-7] 07/18/2024 12:30 PM 400 mg/dL N Blood chemistry[[id number]] Glucose [Mass/volume] in Serum or Plasma [2345-7] 07/18/2024 05:25 PM 334 mg/dL N Blood chemistry[[id number]] Glucose [Mass/volume] in Serum or Plasma [2345-7] 07/18/2024 10:02 AM 465 mg/dL N Blood chemistry[[id number]] Glucose [Mass/volume] in Serum or Plasma [2345-7] 07/18/2024 11:45 AM 215 mg/dL N Blood chemistry[[id number]] Glucose [Mass/volume] in Serum or Plasma [2345-7] 07/17/2024 01:26 PM 400 mg/dL N Blood chemistry[[id number]] Glucose [Mass/volume] in Serum or Plasma [2345-7] 07/17/2024 03:45 PM 329 mg/dL N Blood chemistry[[id number]] Glucose [Mass/volume] in Serum or Plasma [2345-7] 07/17/2024 08:27 AM 379 mg/dL N Blood chemistry[[id number]] Glucose [Mass/volume] in Serum or Plasma [2345-7] 07/17/2024 01:37 PM 205 mg/dL N Blood chemistry[[id number]] Glucose [Mass/volume] in Serum or Plasma [2345-7] 07/16/2024 12:54 PM 378 mg/dL N Blood chemistry[[id number]] Glucose [Mass/volume] in Serum or Plasma [2345-7] 07/16/2024 04:27 PM 314 mg/dL N Blood chemistry[[id number]] Glucose [Mass/volume] in Serum or Plasma [2345-7] 07/16/2024 09:56 AM 401 mg/dL N Blood chemistry[[id number]] Glucose [Mass/volume] in Serum or Plasma [2345-7] 07/16/2024 12:42 PM 167 mg/dL N Blood chemistry[[id number]] Glucose [Mass/volume] in Serum or Plasma [2345-7] 07/15/2024 01:44 PM 200 mg/dL N Blood chemistry[[id number]] Glucose [Mass/volume] in Serum or Plasma [2345-7] 07/15/2024 04:43 PM 308 mg/dL N Blood chemistry[[id number]] Glucose [Mass/volume] in Serum or Plasma [2345-7] 07/15/2024 09:00 AM 304 mg/dL N Blood chemistry[[id number]] Glucose [Mass/volume] in Serum or Plasma [2345-7] 07/15/2024 12:03 PM 160 mg/dL N Blood chemistry[[id number]] Glucose [Mass/volume] in Serum or Plasma [2345-7] 07/15/2024 06:46 AM 242 mg/dL N Blood chemistry[[id number]] Glucose [Mass/volume] in Serum or Plasma [2345-7] 07/14/2024 04:24 PM 280 mg/dL N Blood chemistry[[id number]] Glucose [Mass/volume] in Serum or Plasma [2345-7] 07/14/2024 09:29 AM 336 mg/dL N Blood chemistry[[id number]] Glucose [Mass/volume] in Serum or Plasma [2345-7] 07/14/2024 12:04 PM 172 mg/dL N Blood chemistry[[id number]] Glucose [Mass/volume] in Serum or Plasma [2345-7] 07/13/2024 01:04 PM 323 mg/dL N Blood chemistry[[id number]] Glucose [Mass/volume] in Serum or Plasma [2345-7] 07/13/2024 04:47 PM 418 mg/dL N Blood chemistry[[id number]] Glucose [Mass/volume] in Serum or Plasma [2345-7] 07/13/2024 09:41 AM 292 mg/dL N Blood chemistry[[id number]] Glucose [Mass/volume] in Serum or Plasma [2345-7] 07/13/2024 12:04 PM 198 mg/dL N Blood chemistry[[id number]] Glucose [Mass/volume] in Serum or Plasma [2345-7] 07/12/2024 03:12 PM 400 mg/dL N Blood chemistry[[id number]] Glucose [Mass/volume] in Serum or Plasma [2345-7] 07/12/2024 09:42 AM 539 mg/dL N Blood chemistry[[id number]] Glucose [Mass/volume] in Serum or Plasma [2345-7] 07/12/2024 07:03 AM 400 mg/dL N Blood chemistry[[id number]] Glucose [Mass/volume] in Serum or Plasma [2345-7] 07/12/2024 12:30 PM 211 mg/dL N Blood chemistry[[id number]] Glucose [Mass/volume] in Serum or Plasma [2345-7] 07/11/2024 12:06 PM 400 mg/dL N Blood chemistry[[id number]] Glucose [Mass/volume] in Serum or Plasma [2345-7] 07/11/2024 09:11 AM 413 mg/dL N Blood chemistry[[id number]] Glucose [Mass/volume] in Serum or Plasma [2345-7] 07/11/2024 04:15 PM 417 mg/dL N Blood chemistry[[id number]] Glucose [Mass/volume] in Serum or Plasma [2345-7] 07/11/2024 12:17 PM 267 mg/dL N Blood chemistry[[id number]] Glucose [Mass/volume] in Serum or Plasma [2345-7] 07/10/2024 04:32 PM 304 mg/dL N Blood chemistry[[id number]] Glucose [Mass/volume] in Serum or Plasma [2345-7] 07/10/2024 01:25 PM 343 mg/dL N Blood chemistry[[id number]] Glucose [Mass/volume] in Serum or Plasma [2345-7] 07/10/2024 11:54 AM 189 mg/dL N Blood chemistry[[id number]] Glucose [Mass/volume] in Serum or Plasma [2345-7] 07/10/2024 09:52 AM 323 mg/dL N Blood chemistry[[id number]] Glucose [Mass/volume] in Serum or Plasma [2345-7] 07/09/2024 03:10 PM 285 mg/dL N Blood chemistry[[id number]] Glucose [Mass/volume] in Serum or Plasma [2345-7] 07/09/2024 10:09 AM 299 mg/dL N Blood chemistry[[id number]] Glucose [Mass/volume] in Serum or Plasma [2345-7] 07/09/2024 04:48 PM 399 mg/dL N Blood chemistry[[id number]] Glucose [Mass/volume] in Serum or Plasma [2345-7] 07/09/2024 12:18 PM 210 mg/dL N Blood chemistry[[id number]] Glucose [Mass/volume] in Serum or Plasma [2345-7] 07/08/2024 05:50 PM 317 mg/dL N Blood chemistry[[id number]] Glucose [Mass/volume] in Serum or Plasma [2345-7] 07/08/2024 03:39 PM 385 mg/dL N Blood chemistry[[id number]] Glucose [Mass/volume] in Serum or Plasma [2345-7] 07/08/2024 01:03 PM 195 mg/dL N Blood chemistry[[id number]] Glucose [Mass/volume] in Serum or Plasma [2345-7] 07/08/2024 10:53 AM 372 mg/dL N Blood chemistry[[id number]] Glucose [Mass/volume] in Serum or Plasma [2345-7] 07/07/2024 03:24 PM 240 mg/dL N Blood chemistry[[id number]] Glucose [Mass/volume] in Serum or Plasma [2345-7] 07/07/2024 10:39 AM 401 mg/dL N Blood chemistry[[id number]] Glucose [Mass/volume] in Serum or Plasma [2345-7] 07/07/2024 05:06 PM 375 mg/dL N Blood chemistry[[id number]] Glucose [Mass/volume] in Serum or Plasma [2345-7] 07/07/2024 01:29 PM 166 mg/dL N Blood chemistry[[id number]] Glucose [Mass/volume] in Serum or Plasma [2345-7] 07/06/2024 05:55 PM 200 mg/dL N Blood chemistry[[id number]] Glucose [Mass/volume] in Serum or Plasma [2345-7] 07/06/2024 10:33 AM 391 mg/dL N Blood chemistry[[id number]] Glucose [Mass/volume] in Serum or Plasma [2345-7] 07/06/2024 06:42 PM 283 mg/dL N Blood chemistry[[id number]] Glucose [Mass/volume] in Serum or Plasma [2345-7] 07/06/2024 05:26 PM 396 mg/dL N Blood chemistry[[id number]] Glucose [Mass/volume] in Serum or Plasma [2345-7] 07/06/2024 01:14 PM 215 mg/dL N Blood chemistry[[id number]] Glucose [Mass/volume] in Serum or Plasma [2345-7] 07/05/2024 10:55 AM 354 mg/dL N Blood chemistry[[id number]] Glucose [Mass/volume] in Serum or Plasma [2345-7] 07/05/2024 06:29 PM 293 mg/dL N Blood chemistry[[id number]] Glucose [Mass/volume] in Serum or Plasma [2345-7] 07/05/2024 01:38 PM 235 mg/dL N Blood chemistry[[id number]] Glucose [Mass/volume] in Serum or Plasma [2345-7] 07/04/2024 02:20 PM 383 mg/dL N Blood chemistry[[id number]] Glucose [Mass/volume] in Serum or Plasma [2345-7] 07/04/2024 10:17 AM 354 mg/dL N Blood chemistry[[id number]] Glucose [Mass/volume] in Serum or Plasma [2345-7] 07/04/2024 05:34 PM 379 mg/dL N Blood chemistry[[id number]] Glucose [Mass/volume] in Serum or Plasma [2345-7] 07/04/2024 01:29 PM 201 mg/dL N Blood chemistry[[id number]] Glucose [Mass/volume] in Serum or Plasma [2345-7] 07/03/2024 06:49 PM 364 mg/dL N Blood chemistry[[id number]] Glucose [Mass/volume] in Serum or Plasma [2345-7] 07/03/2024 03:23 PM 400 mg/dL N Blood chemistry[[id number]] Glucose [Mass/volume] in Serum or Plasma [2345-7] 07/03/2024 01:52 PM 264 mg/dL N Blood chemistry[[id number]] Glucose [Mass/volume] in Serum or Plasma [2345-7] 07/03/2024 11:07 AM 360 mg/dL N Blood chemistry[[id number]] Glucose [Mass/volume] in Serum or Plasma [2345-7] 07/02/2024 03:35 PM 398 mg/dL N Blood chemistry[[id number]] Glucose [Mass/volume] in Serum or Plasma [2345-7] 07/02/2024 10:55 AM 409 mg/dL N Blood chemistry[[id number]] Glucose [Mass/volume] in Serum or Plasma [2345-7] 07/02/2024 05:00 PM 354 mg/dL N Blood chemistry[[id number]] Glucose [Mass/volume] in Serum or Plasma [2345-7] 07/02/2024 01:34 PM 217 mg/dL N Blood chemistry[[id number]] Glucose [Mass/volume] in Serum or Plasma [2345-7] 07/01/2024 03:01 PM 374 mg/dL N Blood chemistry[[id number]] Glucose [Mass/volume] in Serum or Plasma [2345-7] 07/01/2024 10:51 AM 251 mg/dL N Blood chemistry[[id number]] Glucose [Mass/volume] in Serum or Plasma [2345-7] 07/01/2024 06:19 PM 269 mg/dL N Blood chemistry[[id number]] Glucose [Mass/volume] in Serum or Plasma [2345-7] 07/01/2024 06:13 PM 356 mg/dL N Blood chemistry[[id number]] Glucose [Mass/volume] in Serum or Plasma [2345-7] 07/01/2024 02:17 PM 207 mg/dL N Blood chemistry[[id number]] Glucose [Mass/volume] in Serum or Plasma [2345-7] 06/30/2024 05:40 PM 322 mg/dL N Blood chemistry[[id number]] Glucose [Mass/volume] in Serum or Plasma [2345-7] 06/30/2024 01:24 PM 166 mg/dL N Blood chemistry[[id number]] Glucose [Mass/volume] in Serum or Plasma [2345-7] 06/30/2024 10:37 AM 446 mg/dL N Blood chemistry[[id number]] Glucose [Mass/volume] in Serum or Plasma [2345-7] 06/29/2024 01:56 PM 235 mg/dL N Blood chemistry[[id number]] Glucose [Mass/volume] in Serum or Plasma [2345-7] 06/29/2024 10:33 AM 210 mg/dL N Blood chemistry[[id number]] Glucose [Mass/volume] in Serum or Plasma [2345-7] 06/29/2024 05:40 PM 299 mg/dL N Blood chemistry[[id number]] Glucose [Mass/volume] in Serum or Plasma [2345-7] 06/29/2024 12:52 PM 186 mg/dL N Blood chemistry[[id number]] Glucose [Mass/volume] in Serum or Plasma [2345-7] 06/28/2024 05:25 PM 327 mg/dL N Blood chemistry[[id number]] Glucose [Mass/volume] in Serum or Plasma [2345-7] 06/28/2024 03:03 PM 391 mg/dL N Blood chemistry[[id number]] Glucose [Mass/volume] in Serum or Plasma [2345-7] 06/28/2024 12:59 PM 240 mg/dL N Blood chemistry[[id number]] Glucose [Mass/volume] in Serum or Plasma [2345-7] 06/28/2024 10:43 AM 354 mg/dL N Blood chemistry[[id number]] Glucose [Mass/volume] in Serum or Plasma [2345-7] 06/27/2024 04:55 PM 317 mg/dL N Blood chemistry[[id number]] Glucose [Mass/volume] in Serum or Plasma [2345-7] 06/27/2024 11:05 AM 438 mg/dL N Blood chemistry[[id number]] Glucose [Mass/volume] in Serum or Plasma [2345-7] 06/27/2024 06:38 PM 329 mg/dL N Blood chemistry[[id number]] Glucose [Mass/volume] in Serum or Plasma [2345-7] 06/27/2024 05:25 PM 360 mg/dL N Blood chemistry[[id number]] Glucose [Mass/volume] in Serum or Plasma [2345-7] 06/27/2024 01:01 PM 197 mg/dL N Blood chemistry[[id number]] Glucose [Mass/volume] in Serum or Plasma [2345-7] 06/26/2024 06:07 PM 370 mg/dL N Blood chemistry[[id number]] Glucose [Mass/volume] in Serum or Plasma [2345-7] 06/26/2024 01:09 PM 177 mg/dL N Blood chemistry[[id number]] Glucose [Mass/volume] in Serum or Plasma [2345-7] 06/26/2024 11:45 AM 400 mg/dL N Blood chemistry[[id number]] Glucose [Mass/volume] in Serum or Plasma [2345-7] 06/25/2024 05:40 PM 265 mg/dL N Blood chemistry[[id number]] Glucose [Mass/volume] in Serum or Plasma [2345-7] 06/25/2024 10:31 AM 322 mg/dL N Blood chemistry[[id number]] Glucose [Mass/volume] in Serum or Plasma [2345-7] 06/25/2024 06:18 PM 244 mg/dL N Blood chemistry[[id number]] Glucose [Mass/volume] in Serum or Plasma [2345-7] 06/25/2024 05:14 PM 421 mg/dL N Blood chemistry[[id number]] Glucose [Mass/volume] in Serum or Plasma [2345-7] 06/25/2024 12:49 PM 168 mg/dL N Blood chemistry[[id number]] Glucose [Mass/volume] in Serum or Plasma [2345-7] 06/24/2024 05:46 PM 323 mg/dL N Blood chemistry[[id number]] Glucose [Mass/volume] in Serum or Plasma [2345-7] 06/24/2024 12:59 PM 188 mg/dL N Blood chemistry[[id number]] Glucose [Mass/volume] in Serum or Plasma [2345-7] 06/24/2024 10:34 AM 414 mg/dL N Blood chemistry[[id number]] Glucose [Mass/volume] in Serum or Plasma [2345-7] 06/23/2024 05:20 PM 334 mg/dL N Blood chemistry[[id number]] Glucose [Mass/volume] in Serum or Plasma [2345-7] 06/23/2024 10:40 AM 257 mg/dL N Blood chemistry[[id number]] Glucose [Mass/volume] in Serum or Plasma [2345-7] 06/23/2024 05:36 PM 322 mg/dL N Blood chemistry[[id number]] Glucose [Mass/volume] in Serum or Plasma [2345-7] 06/23/2024 12:30 PM 149 mg/dL N Blood chemistry[] Glucose [Mass/volume] in Serum or Plasma [2345-7] 06/22/2024 03:01 PM 240 mg/dL N Blood chemistry[] Glucose [Mass/volume] in Serum or Plasma [2345-7] 06/22/2024 11:42 AM 374 mg/dL N Blood chemistry[] Glucose [Mass/volume] in Serum or Plasma [2345-7] 06/22/2024 05:33 PM 383 mg/dL N Blood chemistry[[id number]] Glucose [Mass/volume] in Serum or Plasma [2345-7] 06/22/2024 01:23 PM 191 mg/dL N Blood chemistry[[id number]] Glucose [Mass/volume] in Serum or Plasma [2345-7] 06/21/2024 02:28 PM 298 mg/dL N Blood chemistry[] Glucose [Mass/volume] in Serum or Plasma [2345-7] 06/21/2024 10:42 AM 259 mg/dL N Blood chemistry[[id number]] Glucose [Mass/volume] in Serum or Plasma [2345-7] 06/21/2024 05:13 PM 376 mg/dL N Blood chemistry[[id number]] Glucose [Mass/volume] in Serum or Plasma [2345-7] 06/21/2024 11:56 AM 266 mg/dL N Blood chemistry[[id number]] Glucose [Mass/volume] in Serum or Plasma [2345-7] 06/20/2024 01:07 PM 400 mg/dL N Blood chemistry[[id number]] Glucose [Mass/volume] in Serum or Plasma [2345-7] 06/20/2024 11:28 AM 444 mg/dL N Blood chemistry[[id number]] Glucose [Mass/volume] in Serum or Plasma [2345-7] 06/20/2024 05:06 PM 360 mg/dL N Blood chemistry[[id number]] Glucose [Mass/volume] in Serum or Plasma [2345-7] 06/20/2024 02:40 PM 104 mg/dL N Blood chemistry[[id number]] Glucose [Mass/volume] in Serum or Plasma [2345-7] 06/19/2024 06:06 PM 294 mg/dL N Blood chemistry[[id number]] Glucose [Mass/volume] in Serum or Plasma [2345-7] 06/19/2024 03:26 PM 372 mg/dL N Blood chemistry[[id number]] Glucose [Mass/volume] in Serum or Plasma [2345-7] 06/19/2024 02:21 PM 95 mg/dL N Blood chemistry[[id number]] Glucose [Mass/volume] in Serum or Plasma [2345-7] 06/19/2024 11:40 AM 384 mg/dL N Blood chemistry[[id number]] Glucose [Mass/volume] in Serum or Plasma [2345-7] 06/19/2024 08:27 AM 245 mg/dL N Blood chemistry[[id number]] Glucose [Mass/volume] in Serum or Plasma [2345-7] 06/18/2024 10:35 AM 335 mg/dL N Blood chemistry[[id number]] Glucose [Mass/volume] in Serum or Plasma [2345-7] 06/18/2024 05:13 PM 306 mg/dL N Blood chemistry[[id number]] Glucose [Mass/volume] in Serum or Plasma [2345-7] 06/18/2024 12:48 PM 157 mg/dL N Blood chemistry[[id number]] Glucose [Mass/volume] in Serum or Plasma [2345-7] 06/17/2024 05:29 PM 287 mg/dL N Blood chemistry[[id number]] Glucose [Mass/volume] in Serum or Plasma [2345-7] 06/17/2024 03:52 PM 240 mg/dL N Blood chemistry[[id number]] Glucose [Mass/volume] in Serum or Plasma [2345-7] 06/17/2024 02:14 PM 137 mg/dL N Blood chemistry[[id number]] Glucose [Mass/volume] in Serum or Plasma [2345-7] 06/17/2024 11:32 AM 241 mg/dL N Blood chemistry[[id number]] Glucose [Mass/volume] in Serum or Plasma [2345-7] 06/16/2024 01:20 PM 435 mg/dL N Blood chemistry[[id number]] Glucose [Mass/volume] in Serum or Plasma [2345-7] 06/16/2024 10:25 AM 486 mg/dL N Blood chemistry[[id number]] Glucose [Mass/volume] in Serum or Plasma [2345-7] 06/16/2024 06:03 PM 98 mg/dL N Blood chemistry[[id number]] Glucose [Mass/volume] in Serum or Plasma [2345-7] 06/16/2024 05:27 PM 334 mg/dL N Blood chemistry[[id number]] Glucose [Mass/volume] in Serum or Plasma [2345-7] 06/16/2024 02:45 PM 133 mg/dL N Blood chemistry[[id number]] Glucose [Mass/volume] in Serum or Plasma [2345-7] 06/15/2024 05:22 PM 226 mg/dL N Blood chemistry[[id number]] Glucose [Mass/volume] in Serum or Plasma [2345-7] 06/15/2024 01:10 PM 120 mg/dL N Blood chemistry[[id number]] Glucose [Mass/volume] in Serum or Plasma [2345-7] 06/15/2024 11:36 AM 199 mg/dL N Blood chemistry[[id number]] Glucose [Mass/volume] in Serum or Plasma [2345-7] 06/14/2024 05:30 PM 210 mg/dL N Blood chemistry[[id number]] Glucose [Mass/volume] in Serum or Plasma [2345-7] 06/14/2024 01:44 PM 292 mg/dL N Blood chemistry[[id number]] Glucose [Mass/volume] in Serum or Plasma [2345-7] 06/14/2024 12:49 PM 114 mg/dL N Blood chemistry[[id number]] Glucose [Mass/volume] in Serum or Plasma [2345-7] 06/14/2024 10:43 AM 273 mg/dL N Blood chemistry[[id number]] Glucose [Mass/volume] in Serum or Plasma [2345-7] 06/13/2024 05:13 PM 268 mg/dL N Blood chemistry[[id number]] Glucose [Mass/volume] in Serum or Plasma [2345-7] 06/13/2024 02:07 PM 247 mg/dL N Blood chemistry[[id number]] Glucose [Mass/volume] in Serum or Plasma [2345-7] 06/13/2024 01:20 PM 104 mg/dL N Blood chemistry[[id number]] Glucose [Mass/volume] in Serum or Plasma [2345-7] 06/13/2024 11:08 AM 257 mg/dL N Blood chemistry[[id number]] Glucose [Mass/volume] in Serum or Plasma [2345-7] 06/12/2024 03:03 PM 175 mg/dL N Blood chemistry[[id number]] Glucose [Mass/volume] in Serum or Plasma [2345-7] 06/12/2024 06:04 PM 196 mg/dL N Blood chemistry[[id number]] Glucose [Mass/volume] in Serum or Plasma [2345-7] 06/12/2024 01:00 PM 130 mg/dL N Blood chemistry[[id number]] Glucose [Mass/volume] in Serum or Plasma [2345-7] 06/12/2024 10:30 AM 232 mg/dL N Blood chemistry[[id number]] Glucose [Mass/volume] in Serum or Plasma [2345-7] 06/11/2024 04:59 PM 209 mg/dL N Blood chemistry[[id number]] Glucose [Mass/volume] in Serum or Plasma [2345-7] 06/11/2024 05:13 PM 232 mg/dL N Blood chemistry[[id number]] Glucose [Mass/volume] in Serum or Plasma [2345-7] 06/11/2024 02:06 PM 150 mg/dL N Blood chemistry[[id number]] Glucose [Mass/volume] in Serum or Plasma [2345-7] 06/11/2024 09:45 AM 200 mg/dL N Blood chemistry[[id number]] Glucose [Mass/volume] in Serum or Plasma [2345-7] 06/10/2024 01:54 PM 285 mg/dL N Blood chemistry[[id number]] Glucose [Mass/volume] in Serum or Plasma [2345-7] 06/10/2024 10:49 AM 131 mg/dL N Blood chemistry[[id number]] Glucose [Mass/volume] in Serum or Plasma [2345-7] 06/10/2024 05:32 PM 202 mg/dL N Blood chemistry[[id number]] Glucose [Mass/volume] in Serum or Plasma [2345-7] 06/10/2024 12:56 PM 111 mg/dL N Blood chemistry[[id number]] Glucose [Mass/volume] in Serum or Plasma [2345-7] 06/09/2024 02:22 PM 212 mg/dL N Blood chemistry[[id number]] Glucose [Mass/volume] in Serum or Plasma [2345-7] 06/09/2024 05:08 PM 180 mg/dL N Blood chemistry[[id number]] Glucose [Mass/volume] in Serum or Plasma [2345-7] 06/09/2024 01:00 PM 134 mg/dL N Blood chemistry[[id number]] Glucose [Mass/volume] in Serum or Plasma [2345-7] 06/09/2024 12:59 PM 134 mg/dL N Blood chemistry[[id number]] Glucose [Mass/volume] in Serum or Plasma [2345-7] 06/09/2024 10:30 AM 196 mg/dL N Blood chemistry[[id number]] Glucose [Mass/volume] in Serum or Plasma [2345-7] 06/08/2024 02:34 PM 281 mg/dL N Blood chemistry[[id number]] Glucose [Mass/volume] in Serum or Plasma [2345-7] 06/08/2024 05:00 PM 290 mg/dL N Blood chemistry[[id number]] Glucose [Mass/volume] in Serum or Plasma [2345-7] 06/08/2024 01:31 PM 139 mg/dL N Blood chemistry[[id number]] Glucose [Mass/volume] in Serum or Plasma [2345-7] 06/08/2024 11:26 AM 370 mg/dL N Blood chemistry[[id number]] Glucose [Mass/volume] in Serum or Plasma [2345-7] 06/07/2024 03:07 PM 267 mg/dL N Blood chemistry[[id number]] Glucose [Mass/volume] in Serum or Plasma [2345-7] 06/07/2024 06:44 PM 306 mg/dL N Blood chemistry[[id number]] Glucose [Mass/volume] in Serum or Plasma [2345-7] 06/07/2024 01:12 PM 141 mg/dL N Blood chemistry[[id number]] Glucose [Mass/volume] in Serum or Plasma [2345-7] 06/07/2024 10:51 AM 298 mg/dL N Blood chemistry[[id number]] Glucose [Mass/volume] in Serum or Plasma [2345-7] 06/07/2024 07:28 AM 400 mg/dL N Blood chemistry[[id number]] Glucose [Mass/volume] in Serum or Plasma [2345-7] 06/06/2024 06:12 PM 127 mg/dL N Blood chemistry[[id number]] Glucose [Mass/volume] in Serum or Plasma [2345-7] 06/06/2024 01:39 PM 120 mg/dL N Blood chemistry[[id number]] Glucose [Mass/volume] in Serum or Plasma [2345-7] 06/06/2024 10:17 AM 321 mg/dL N Blood chemistry[[id number]] Glucose [Mass/volume] in Serum or Plasma [2345-7] 06/05/2024 04:20 PM 236 mg/dL N Blood chemistry[[id number]] Glucose [Mass/volume] in Serum or Plasma [2345-7] 06/05/2024 02:54 PM 161 mg/dL N Blood chemistry[[id number]] Glucose [Mass/volume] in Serum or Plasma [2345-7] 06/05/2024 11:44 AM 266 mg/dL N Blood chemistry[[id number]] Glucose [Mass/volume] in Serum or Plasma [2345-7] 06/05/2024 07:15 AM 290 mg/dL N Blood chemistry[[id number]] Glucose [Mass/volume] in Serum or Plasma [2345-7] 06/04/2024 04:06 PM 513 mg/dL N Blood chemistry[[id number]] Glucose [Mass/volume] in Serum or Plasma [2345-7] 06/04/2024 10:47 AM 238 mg/dL N Blood chemistry[[id number]] Glucose [Mass/volume] in Serum or Plasma [2345-7] 06/04/2024 05:30 PM 293 mg/dL N Blood chemistry[[id number]] Glucose [Mass/volume] in Serum or Plasma [2345-7] 06/04/2024 02:07 PM 175 mg/dL N Blood chemistry[[id number]] Glucose [Mass/volume] in Serum or Plasma [2345-7] 06/03/2024 05:09 PM 225 mg/dL N Blood chemistry[[id number]] Glucose [Mass/volume] in Serum or Plasma [2345-7] 06/03/2024 10:35 AM 155 mg/dL N Blood chemistry[[id number]] Glucose [Mass/volume] in Serum or Plasma [2345-7] 06/03/2024 05:36 PM 175 mg/dL N Blood chemistry[[id number]] Glucose [Mass/volume] in Serum or Plasma [2345-7] 06/03/2024 01:20 PM 93 mg/dL N Blood chemistry[[id number]] Glucose [Mass/volume] in Serum or Plasma [2345-7] 06/02/2024 02:58 PM 315 mg/dL N Blood chemistry[[id number]] Glucose [Mass/volume] in Serum or Plasma [2345-7] 06/02/2024 03:03 PM 103 mg/dL N Blood chemistry[[id number]] Glucose [Mass/volume] in Serum or Plasma [2345-7] 06/02/2024 10:58 AM 249 mg/dL N Blood chemistry[[id number]] Glucose [Mass/volume] in Serum or Plasma [2345-7] 06/02/2024 10:52 AM 426 mg/dL N Blood chemistry[[id number]] Glucose [Mass/volume] in Serum or Plasma [2345-7] 06/02/2024 08:21 AM 223 mg/dL N Blood chemistry[[id number]] Glucose [Mass/volume] in Serum or Plasma [2345-7] 06/01/2024 05:03 PM 263 mg/dL N Blood chemistry[[id number]] Glucose [Mass/volume] in Serum or Plasma [2345-7] 06/01/2024 01:14 PM 122 mg/dL N Blood chemistry[[id number]] Glucose [Mass/volume] in Serum or Plasma [2345-7] 06/01/2024 11:52 AM 228 mg/dL N Blood chemistry[[id number]] Glucose [Mass/volume] in Serum or Plasma [2345-7] 05/31/2024 04:45 PM 296 mg/dL N Blood chemistry[[id number]] Glucose [Mass/volume] in Serum or Plasma [2345-7] 05/31/2024 06:12 PM 209 mg/dL N Blood chemistry[[id number]] Glucose [Mass/volume] in Serum or Plasma [2345-7] 05/31/2024 01:51 PM 115 mg/dL N Blood chemistry[[id number]] Glucose [Mass/volume] in Serum or Plasma [2345-7] 05/31/2024 10:49 AM 208 mg/dL N Blood chemistry[[id number]] Glucose [Mass/volume] in Serum or Plasma [2345-7] 05/30/2024 05:13 PM 262 mg/dL N Blood chemistry[[id number]] Glucose [Mass/volume] in Serum or Plasma [2345-7] 05/30/2024 01:02 PM 235 mg/dL N Blood chemistry[[id number]] Glucose [Mass/volume] in Serum or Plasma [2345-7] 05/30/2024 12:54 PM 122 mg/dL N Blood chemistry[[id number]] Glucose [Mass/volume] in Serum or Plasma [2345-7] 05/30/2024 10:59 AM 155 mg/dL N Blood chemistry[[id number]] Glucose [Mass/volume] in Serum or Plasma [2345-7] 05/29/2024 05:33 PM 150 mg/dL N Blood chemistry[[id number]] Glucose [Mass/volume] in Serum or Plasma [2345-7] 05/29/2024 04:57 PM 173 mg/dL N Blood chemistry[[id number]] Glucose [Mass/volume] in Serum or Plasma [2345-7] 05/29/2024 12:33 PM 109 mg/dL N Blood chemistry[[id number]] Glucose [Mass/volume] in Serum or Plasma [2345-7] 05/29/2024 09:49 AM 166 mg/dL N Blood chemistry[[id number]] Glucose [Mass/volume] in Serum or Plasma [2345-7] 05/28/2024 05:24 PM 224 mg/dL N Blood chemistry[[id number]] Glucose [Mass/volume] in Serum or Plasma [2345-7] 05/28/2024 04:05 PM 226 mg/dL N Blood chemistry[[id number]] Glucose [Mass/volume] in Serum or Plasma [2345-7] 05/28/2024 12:52 PM 113 mg/dL N Blood chemistry[[id number]] Glucose [Mass/volume] in Serum or Plasma [2345-7] 05/28/2024 11:24 AM 212 mg/dL N Blood chemistry[[id number]] Glucose [Mass/volume] in Serum or Plasma [2345-7] 05/27/2024 03:02 PM 262 mg/dL N Blood chemistry[[id number]] Glucose [Mass/volume] in Serum or Plasma [2345-7] 05/27/2024 10:49 AM 256 mg/dL N Blood chemistry[[id number]] Glucose [Mass/volume] in Serum or Plasma [2345-7] 05/27/2024 05:25 PM 218 mg/dL N Blood chemistry[[id number]] Glucose [Mass/volume] in Serum or Plasma [2345-7] 05/27/2024 01:01 PM 136 mg/dL N Blood chemistry[[id number]] Glucose [Mass/volume] in Serum or Plasma [2345-7] 05/26/2024 03:03 PM 178 mg/dL N Blood chemistry[[id number]] Glucose [Mass/volume] in Serum or Plasma [2345-7] 05/26/2024 05:00 PM 251 mg/dL N Blood chemistry[[id number]] Glucose [Mass/volume] in Serum or Plasma [2345-7] 05/26/2024 12:58 PM 118 mg/dL N Blood chemistry[[id number]] Glucose [Mass/volume] in Serum or Plasma [2345-7] 05/26/2024 10:38 AM 159 mg/dL N Blood chemistry[[id number]] Glucose [Mass/volume] in Serum or Plasma [2345-7] 05/25/2024 02:55 PM 223 mg/dL N Blood chemistry[[id number]] Glucose [Mass/volume] in Serum or Plasma [2345-7] 05/25/2024 05:43 PM 218 mg/dL N Blood chemistry[[id number]] Glucose [Mass/volume] in Serum or Plasma [2345-7] 05/25/2024 01:20 PM 131 mg/dL N Blood chemistry[[id number]] Glucose [Mass/volume] in Serum or Plasma [2345-7] 05/25/2024 11:19 AM 176 mg/dL N Blood chemistry[[id number]] Glucose [Mass/volume] in Serum or Plasma [2345-7] 05/24/2024 02:08 PM 304 mg/dL N Blood chemistry[[id number]] Glucose [Mass/volume] in Serum or Plasma [2345-7] 05/24/2024 05:29 PM 265 mg/dL N Blood chemistry[[id number]] Glucose [Mass/volume] in Serum or Plasma [2345-7] 05/24/2024 01:28 PM 143 mg/dL N Blood chemistry[[id number]] Glucose [Mass/volume] in Serum or Plasma [2345-7] 05/24/2024 10:41 AM 207 mg/dL N Blood chemistry[[id number]] Glucose [Mass/volume] in Serum or Plasma [2345-7] 05/23/2024 04:44 PM 320 mg/dL N Blood chemistry[[id number]] Glucose [Mass/volume] in Serum or Plasma [2345-7] 05/23/2024 06:03 PM 330 mg/dL N Blood chemistry[[id number]] Glucose [Mass/volume] in Serum or Plasma [2345-7] 05/23/2024 02:47 PM 140 mg/dL N Blood chemistry[[id number]] Glucose [Mass/volume] in Serum or Plasma [2345-7] 05/23/2024 10:57 AM 274 mg/dL N Blood chemistry[[id number]] Glucose [Mass/volume] in Serum or Plasma [2345-7] 05/22/2024 06:08 PM 226 mg/dL N Blood chemistry[[id number]] Glucose [Mass/volume] in Serum or Plasma [2345-7] 05/22/2024 02:17 PM 150 mg/dL N Blood chemistry[[id number]] Glucose [Mass/volume] in Serum or Plasma [2345-7] 05/22/2024 02:12 PM 332 mg/dL N Blood chemistry[[id number]] Glucose [Mass/volume] in Serum or Plasma [2345-7] 05/22/2024 11:45 AM 261 mg/dL N Blood chemistry[[id number]] Glucose [Mass/volume] in Serum or Plasma [2345-7] 05/21/2024 02:37 PM 217 mg/dL N Blood chemistry[[id number]] Glucose [Mass/volume] in Serum or Plasma [2345-7] 05/21/2024 11:32 AM 234 mg/dL N Blood chemistry[[id number]] Glucose [Mass/volume] in Serum or Plasma [2345-7] 05/21/2024 05:36 PM 214 mg/dL N Blood chemistry[[id number]] Glucose [Mass/volume] in Serum or Plasma [2345-7] 05/21/2024 01:40 PM 181 mg/dL N Blood chemistry[[id number]] Glucose [Mass/volume] in Serum or Plasma [2345-7] 05/20/2024 05:17 PM 211 mg/dL N Blood chemistry[[id number]] Glucose [Mass/volume] in Serum or Plasma [2345-7] 05/20/2024 02:11 PM 314 mg/dL N Blood chemistry[[id number]] Glucose [Mass/volume] in Serum or Plasma [2345-7] 05/20/2024 01:52 PM 138 mg/dL N Blood chemistry[[id number]] Glucose [Mass/volume] in Serum or Plasma [2345-7] 05/20/2024 10:20 AM 270 mg/dL N Blood chemistry[[id number]] Glucose [Mass/volume] in Serum or Plasma [2345-7] 05/19/2024 04:49 PM 215 mg/dL N Blood chemistry[[id number]] Glucose [Mass/volume] in Serum or Plasma [2345-7] 05/19/2024 01:21 PM 111 mg/dL N Blood chemistry[[id number]] Glucose [Mass/volume] in Serum or Plasma [2345-7] 05/19/2024 01:00 PM 206 mg/dL N Blood chemistry[[id number]] Glucose [Mass/volume] in Serum or Plasma [2345-7] 05/19/2024 10:14 AM 197 mg/dL N Blood chemistry[[id number]] Glucose [Mass/volume] in Serum or Plasma [2345-7] 05/18/2024 12:31 PM 247 mg/dL N Blood chemistry[[id number]] Glucose [Mass/volume] in Serum or Plasma [2345-7] 05/18/2024 05:12 PM 247 mg/dL N Blood chemistry[[id number]] Glucose [Mass/volume] in Serum or Plasma [2345-7] 05/18/2024 12:56 PM 144 mg/dL N Blood chemistry[[id number]] Glucose [Mass/volume] in Serum or Plasma [2345-7] 05/18/2024 11:12 AM 260 mg/dL N Blood chemistry[[id number]] Glucose [Mass/volume] in Serum or Plasma [2345-7] 05/17/2024 03:05 PM 279 mg/dL N Blood chemistry[[id number]] Glucose [Mass/volume] in Serum or Plasma [2345-7] 05/17/2024 05:00 PM 218 mg/dL N Blood chemistry[[id number]] Glucose [Mass/volume] in Serum or Plasma [2345-7] 05/17/2024 01:21 PM 110 mg/dL N Blood chemistry[[id number]] Glucose [Mass/volume] in Serum or Plasma [2345-7] 05/17/2024 10:31 AM 233 mg/dL N Blood chemistry[[id number]] Glucose [Mass/volume] in Serum or Plasma [2345-7] 05/16/2024 02:47 PM 250 mg/dL N Blood chemistry[[id number]] Glucose [Mass/volume] in Serum or Plasma [2345-7] 05/16/2024 05:20 PM 220 mg/dL N Blood chemistry[[id number]] Glucose [Mass/volume] in Serum or Plasma [2345-7] 05/16/2024 01:10 PM 114 mg/dL N Blood chemistry[[id number]] Glucose [Mass/volume] in Serum or Plasma [2345-7] 05/16/2024 10:48 AM 226 mg/dL N Blood chemistry[[id number]] Glucose [Mass/volume] in Serum or Plasma [2345-7] 05/16/2024 08:49 AM 254 mg/dL N Blood chemistry[[id number]] Glucose [Mass/volume] in Serum or Plasma [2345-7] 05/15/2024 05:45 PM 191 mg/dL N Blood chemistry[[id number]] Glucose [Mass/volume] in Serum or Plasma [2345-7] 05/15/2024 12:38 PM 120 mg/dL N Blood chemistry[[id number]] Glucose [Mass/volume] in Serum or Plasma [2345-7] 05/15/2024 11:39 AM 174 mg/dL N Blood chemistry[[id number]] Glucose [Mass/volume] in Serum or Plasma [2345-7] 05/14/2024 05:04 PM 230 mg/dL N Blood chemistry[[id number]] Glucose [Mass/volume] in Serum or Plasma [2345-7] 05/14/2024 04:35 PM 212 mg/dL N Blood chemistry[[id number]] Glucose [Mass/volume] in Serum or Plasma [2345-7] 05/14/2024 12:33 PM 117 mg/dL N Blood chemistry[[id number]] Glucose [Mass/volume] in Serum or Plasma [2345-7] 05/14/2024 10:39 AM 148 mg/dL N Blood chemistry[[id number]] Glucose [Mass/volume] in Serum or Plasma [2345-7] 05/13/2024 04:08 PM 180 mg/dL N Blood chemistry[[id number]] Glucose [Mass/volume] in Serum or Plasma [2345-7] 05/13/2024 10:55 AM 132 mg/dL N Blood chemistry[[id number]] Glucose [Mass/volume] in Serum or Plasma [2345-7] 05/13/2024 05:10 PM 224 mg/dL N Blood chemistry[[id number]] Glucose [Mass/volume] in Serum or Plasma [2345-7] 05/13/2024 12:36 PM 133 mg/dL N Blood chemistry[[id number]] Glucose [Mass/volume] in Serum or Plasma [2345-7] 05/12/2024 04:08 PM 180 mg/dL N Blood chemistry[[id number]] Glucose [Mass/volume] in Serum or Plasma [2345-7] 05/12/2024 05:12 PM 237 mg/dL N Blood chemistry[[id number]] Glucose [Mass/volume] in Serum or Plasma [2345-7] 05/12/2024 01:09 PM 113 mg/dL N Blood chemistry[[id number]] Glucose [Mass/volume] in Serum or Plasma [2345-7] 05/12/2024 10:59 AM 217 mg/dL N Blood chemistry[[id number]] Glucose [Mass/volume] in Serum or Plasma [2345-7] 05/11/2024 03:26 PM 185 mg/dL N Blood chemistry[[id number]] Glucose [Mass/volume] in Serum or Plasma [2345-7] 05/11/2024 05:28 PM 239 mg/dL N Blood chemistry[[id number]] Glucose [Mass/volume] in Serum or Plasma [2345-7] 05/11/2024 12:44 PM 159 mg/dL N Blood chemistry[[id number]] Glucose [Mass/volume] in Serum or Plasma [2345-7] 05/10/2024 02:02 PM 216 mg/dL N Blood chemistry[[id number]] Glucose [Mass/volume] in Serum or Plasma [2345-7] 05/10/2024 01:40 PM 155 mg/dL N Blood chemistry[[id number]] Glucose [Mass/volume] in Serum or Plasma [2345-7] 05/10/2024 10:44 AM 241 mg/dL N Blood chemistry[[id number]] Glucose [Mass/volume] in Serum or Plasma [2345-7] 05/10/2024 07:07 AM 187 mg/dL N Blood chemistry[[id number]] Glucose [Mass/volume] in Serum or Plasma [2345-7] 05/09/2024 02:14 PM 259 mg/dL N Blood chemistry[[id number]] Glucose [Mass/volume] in Serum or Plasma [2345-7] 05/09/2024 05:26 PM 337 mg/dL N Blood chemistry[[id number]] Glucose [Mass/volume] in Serum or Plasma [2345-7] 05/09/2024 01:53 PM 144 mg/dL N Blood chemistry[[id number]] Glucose [Mass/volume] in Serum or Plasma [2345-7] 05/09/2024 10:50 AM 224 mg/dL N Blood chemistry[[id number]] Glucose [Mass/volume] in Serum or Plasma [2345-7] 05/08/2024 02:00 PM 336 mg/dL N Blood chemistry[[id number]] Glucose [Mass/volume] in Serum or Plasma [2345-7] 05/08/2024 05:05 PM 242 mg/dL N Blood chemistry[[id number]] Glucose [Mass/volume] in Serum or Plasma [2345-7] 05/08/2024 01:18 PM 140 mg/dL N Blood chemistry[[id number]] Glucose [Mass/volume] in Serum or Plasma [2345-7] 05/08/2024 10:16 AM 225 mg/dL N Blood chemistry[[id number]] Glucose [Mass/volume] in Serum or Plasma [2345-7] 05/07/2024 05:18 PM 361 mg/dL N Blood chemistry[[id number]] Glucose [Mass/volume] in Serum or Plasma [2345-7] 05/07/2024 02:02 PM 285 mg/dL N Blood chemistry[[id number]] Glucose [Mass/volume] in Serum or Plasma [2345-7] 05/07/2024 01:08 PM 181 mg/dL N Blood chemistry[[id number]] Glucose [Mass/volume] in Serum or Plasma [2345-7] 05/07/2024 10:25 AM 265 mg/dL N Blood chemistry[[id number]] Glucose [Mass/volume] in Serum or Plasma [2345-7] 05/06/2024 03:02 PM 295 mg/dL N Blood chemistry[[id number]] Glucose [Mass/volume] in Serum or Plasma [2345-7] 05/06/2024 10:17 AM 225 mg/dL N Blood chemistry[[id number]] Glucose [Mass/volume] in Serum or Plasma [2345-7] 05/06/2024 05:30 PM 274 mg/dL N Blood chemistry[[id number]] Glucose [Mass/volume] in Serum or Plasma [2345-7] 05/06/2024 01:09 PM 184 mg/dL N Blood chemistry[[id number]] Glucose [Mass/volume] in Serum or Plasma [2345-7] 05/05/2024 03:05 PM 280 mg/dL N Blood chemistry[[id number]] Glucose [Mass/volume] in Serum or Plasma [2345-7] 05/05/2024 05:39 PM 255 mg/dL N Blood chemistry[[id number]] Glucose [Mass/volume] in Serum or Plasma [2345-7] 05/05/2024 12:49 PM 192 mg/dL N Blood chemistry[[id number]] Glucose [Mass/volume] in Serum or Plasma [2345-7] 05/05/2024 10:49 AM 285 mg/dL N Blood chemistry[[id number]] Glucose [Mass/volume] in Serum or Plasma [2345-7] 05/04/2024 03:32 PM 287 mg/dL N Blood chemistry[[id number]] Glucose [Mass/volume] in Serum or Plasma [2345-7] 05/04/2024 05:16 PM 280 mg/dL N Blood chemistry[[id number]] Glucose [Mass/volume] in Serum or Plasma [2345-7] 05/04/2024 12:42 PM 186 mg/dL N Blood chemistry[[id number]] Glucose [Mass/volume] in Serum or Plasma [2345-7] 05/04/2024 10:06 AM 228 mg/dL N Blood chemistry[[id number]] Glucose [Mass/volume] in Serum or Plasma [2345-7] 05/03/2024 02:14 PM 244 mg/dL N Blood chemistry[[id number]] Glucose [Mass/volume] in Serum or Plasma [2345-7] 05/03/2024 05:17 PM 303 mg/dL N Blood chemistry[[id number]] Glucose [Mass/volume] in Serum or Plasma [2345-7] 05/03/2024 11:12 AM 176 mg/dL N Blood chemistry[[id number]] Glucose [Mass/volume] in Serum or Plasma [2345-7] 05/03/2024 10:22 AM 218 mg/dL N Blood chemistry[[id number]] Glucose [Mass/volume] in Serum or Plasma [2345-7] 05/02/2024 01:45 PM 257 mg/dL N Blood chemistry[[id number]] Glucose [Mass/volume] in Serum or Plasma [2345-7] 05/02/2024 05:33 PM 230 mg/dL N Blood chemistry[[id number]] Glucose [Mass/volume] in Serum or Plasma [2345-7] 05/02/2024 12:56 PM 183 mg/dL N Blood chemistry[[id number]] Glucose [Mass/volume] in Serum or Plasma [2345-7] 05/02/2024 10:18 AM 217 mg/dL N Blood chemistry[[id number]] Glucose [Mass/volume] in Serum or Plasma [2345-7] 05/01/2024 01:16 PM 202 mg/dL N Blood chemistry[[id number]] Glucose [Mass/volume] in Serum or Plasma [2345-7] 05/01/2024 05:25 PM 196 mg/dL N Blood chemistry[[id number]] Glucose [Mass/volume] in Serum or Plasma [2345-7] 05/01/2024 01:00 PM 174 mg/dL N Blood chemistry[[id number]] Glucose [Mass/volume] in Serum or Plasma [2345-7] 05/01/2024 09:43 AM 164 mg/dL N Blood chemistry[[id number]] Glucose [Mass/volume] in Serum or Plasma [2345-7] 04/30/2024 05:10 PM 257 mg/dL N Blood chemistry[[id number]] Glucose [Mass/volume] in Serum or Plasma [2345-7] 04/30/2024 01:25 PM 236 mg/dL N Blood chemistry[[id number]] Glucose [Mass/volume] in Serum or Plasma [2345-7] 04/30/2024 12:39 PM 176 mg/dL N Blood chemistry[[id number]] Glucose [Mass/volume] in Serum or Plasma [2345-7] 04/30/2024 10:15 AM 133 mg/dL N Blood chemistry[[id number]] Glucose [Mass/volume] in Serum or Plasma [2345-7] 04/29/2024 12:48 PM 280 mg/dL N Blood chemistry[[id number]] Glucose [Mass/volume] in Serum or Plasma [2345-7] 04/29/2024 10:18 AM 139 mg/dL N Blood chemistry[[id number]] Glucose [Mass/volume] in Serum or Plasma [2345-7] 04/29/2024 05:40 PM 229 mg/dL N Blood chemistry[[id number]] Glucose [Mass/volume] in Serum or Plasma [2345-7] 04/29/2024 12:45 PM 137 mg/dL N Blood chemistry[[id number]] Glucose [Mass/volume] in Serum or Plasma [2345-7] 04/28/2024 01:45 PM 228 mg/dL N Blood chemistry[[id number]] Glucose [Mass/volume] in Serum or Plasma [2345-7] 04/28/2024 05:56 PM 212 mg/dL N Blood chemistry[[id number]] Glucose [Mass/volume] in Serum or Plasma [2345-7] 04/28/2024 12:58 PM 166 mg/dL N Blood chemistry[[id number]] Glucose [Mass/volume] in Serum or Plasma [2345-7] 04/28/2024 10:00 AM 217 mg/dL N Blood chemistry[[id number]] Glucose [Mass/volume] in Serum or Plasma [2345-7] 04/27/2024 05:28 PM 238 mg/dL N Blood chemistry[[id number]] Glucose [Mass/volume] in Serum or Plasma [2345-7] 04/27/2024 01:19 PM 255 mg/dL N Blood chemistry[[id number]] Glucose [Mass/volume] in Serum or Plasma [2345-7] 04/27/2024 12:37 PM 203 mg/dL N Blood chemistry[[id number]] Glucose [Mass/volume] in Serum or Plasma [2345-7] 04/27/2024 10:14 AM 187 mg/dL N Blood chemistry[[id number]] Glucose [Mass/volume] in Serum or Plasma [2345-7] 04/26/2024 04:43 PM 303 mg/dL N Blood chemistry[[id number]] Glucose [Mass/volume] in Serum or Plasma [2345-7] 04/26/2024 10:48 AM 222 mg/dL N Blood chemistry[[id number]] Glucose [Mass/volume] in Serum or Plasma [2345-7] 04/26/2024 06:09 PM 148 mg/dL N Blood chemistry[[id number]] Glucose [Mass/volume] in Serum or Plasma [2345-7] 04/26/2024 01:32 PM 129 mg/dL N Blood chemistry[[id number]] Glucose [Mass/volume] in Serum or Plasma [2345-7] 04/25/2024 04:50 PM 205 mg/dL N Blood chemistry[[id number]] Glucose [Mass/volume] in Serum or Plasma [2345-7] 04/25/2024 04:58 PM 184 mg/dL N Blood chemistry[[id number]] Glucose [Mass/volume] in Serum or Plasma [2345-7] 04/25/2024 01:06 PM 166 mg/dL N Blood chemistry[[id number]] Glucose [Mass/volume] in Serum or Plasma [2345-7] 04/25/2024 11:03 AM 241 mg/dL N Blood chemistry[[id number]] Glucose [Mass/volume] in Serum or Plasma [2345-7] 04/24/2024 12:35 PM 346 mg/dL N Blood chemistry[[id number]] Glucose [Mass/volume] in Serum or Plasma [2345-7] 04/24/2024 05:39 PM 250 mg/dL N Blood chemistry[[id number]] Glucose [Mass/volume] in Serum or Plasma [2345-7] 04/24/2024 03:48 PM 128 mg/dL N Blood chemistry[[id number]] Glucose [Mass/volume] in Serum or Plasma [2345-7] 04/24/2024 09:57 AM 242 mg/dL N Blood chemistry[[id number]] Glucose [Mass/volume] in Serum or Plasma [2345-7] 04/23/2024 06:00 PM 152 mg/dL N Blood chemistry[[id number]] Glucose [Mass/volume] in Serum or Plasma [2345-7] 04/23/2024 03:01 PM 378 mg/dL N Blood chemistry[[id number]] Glucose [Mass/volume] in Serum or Plasma [2345-7] 04/23/2024 01:23 PM 140 mg/dL N Blood chemistry[[id number]] Glucose [Mass/volume] in Serum or Plasma [2345-7] 04/23/2024 10:16 AM 162 mg/dL N Blood chemistry[[id number]] Glucose [Mass/volume] in Serum or Plasma [2345-7] 04/22/2024 03:23 PM 212 mg/dL N Blood chemistry[[id number]] Glucose [Mass/volume] in Serum or Plasma [2345-7] 04/22/2024 10:13 AM 217 mg/dL N Blood chemistry[[id number]] Glucose [Mass/volume] in Serum or Plasma [2345-7] 04/22/2024 05:23 PM 232 mg/dL N Blood chemistry[[id number]] Glucose [Mass/volume] in Serum or Plasma [2345-7] 04/22/2024 01:48 PM 172 mg/dL N Blood chemistry[[id number]] Glucose [Mass/volume] in Serum or Plasma [2345-7] 04/22/2024 01:46 PM 172 mg/dL N Blood chemistry[[id number]] Glucose [Mass/volume] in Serum or Plasma [2345-7] 04/21/2024 05:00 PM 174 mg/dL N Blood chemistry[[id number]] Glucose [Mass/volume] in Serum or Plasma [2345-7] 04/21/2024 03:36 PM 188 mg/dL N Blood chemistry[[id number]] Glucose [Mass/volume] in Serum or Plasma [2345-7] 04/21/2024 01:03 PM 124 mg/dL N Blood chemistry[[id number]] Glucose [Mass/volume] in Serum or Plasma [2345-7] 04/21/2024 10:41 AM 196 mg/dL N Blood chemistry[[id number]] Glucose [Mass/volume] in Serum or Plasma [2345-7] 04/20/2024 05:18 PM 195 mg/dL N Blood chemistry[[id number]] Glucose [Mass/volume] in Serum or Plasma [2345-7] 04/20/2024 02:10 PM 202 mg/dL N Blood chemistry[[id number]] Glucose [Mass/volume] in Serum or Plasma [2345-7] 04/20/2024 10:01 AM 136 mg/dL N Blood chemistry[[id number]] Glucose [Mass/volume] in Serum or Plasma [2345-7] 04/20/2024 01:14 PM 118 mg/dL N Blood chemistry[[id number]] Glucose [Mass/volume] in Serum or Plasma [2345-7] 04/20/2024 10:58 AM 199 mg/dL N Blood chemistry[[id number]] Glucose [Mass/volume] in Serum or Plasma [2345-7] 04/19/2024 05:08 PM 233 mg/dL N Blood chemistry[[id number]] Glucose [Mass/volume] in Serum or Plasma [2345-7] 04/19/2024 10:10 AM 186 mg/dL N Blood chemistry[[id number]] Glucose [Mass/volume] in Serum or Plasma [2345-7] 04/19/2024 12:54 PM 145 mg/dL N Blood chemistry[[id number]] Glucose [Mass/volume] in Serum or Plasma [2345-7] 04/18/2024 05:25 PM 230 mg/dL N Blood chemistry[[id number]] Glucose [Mass/volume] in Serum or Plasma [2345-7] 04/18/2024 02:00 PM 206 mg/dL N Blood chemistry[[id number]] Glucose [Mass/volume] in Serum or Plasma [2345-7] 04/18/2024 10:35 AM 142 mg/dL N Blood chemistry[[id number]] Glucose [Mass/volume] in Serum or Plasma [2345-7] 04/18/2024 12:54 PM 150 mg/dL N Blood chemistry[[id number]] Glucose [Mass/volume] in Serum or Plasma [2345-7] 04/17/2024 06:20 PM 141 mg/dL N Blood chemistry[[id number]] Glucose [Mass/volume] in Serum or Plasma [2345-7] 04/17/2024 06:19 PM 194 mg/dL N Blood chemistry[[id number]] Glucose [Mass/volume] in Serum or Plasma [2345-7] 04/17/2024 02:47 PM 206 mg/dL N Blood chemistry[[id number]] Glucose [Mass/volume] in Serum or Plasma [2345-7] 04/17/2024 11:49 AM 114 mg/dL N Blood chemistry[[id number]] Glucose [Mass/volume] in Serum or Plasma [2345-7] 04/16/2024 04:00 PM 242 mg/dL N Blood chemistry[[id number]] Glucose [Mass/volume] in Serum or Plasma [2345-7] 04/16/2024 10:02 AM 129 mg/dL N Blood chemistry[[id number]] Glucose [Mass/volume] in Serum or Plasma [2345-7] 04/16/2024 05:19 PM 217 mg/dL N Blood chemistry[[id number]] Glucose [Mass/volume] in Serum or Plasma [2345-7] 04/16/2024 12:43 PM 141 mg/dL N Blood chemistry[[id number]] Glucose [Mass/volume] in Serum or Plasma [2345-7] 04/15/2024 05:52 PM 200 mg/dL N Blood chemistry[[id number]] Glucose [Mass/volume] in Serum or Plasma [2345-7] 04/15/2024 10:16 AM 182 mg/dL N Blood chemistry[[id number]] Glucose [Mass/volume] in Serum or Plasma [2345-7] 04/15/2024 05:00 PM 134 mg/dL N Blood chemistry[[id number]] Glucose [Mass/volume] in Serum or Plasma [2345-7] 04/15/2024 01:48 PM 157 mg/dL N Blood chemistry[[id number]] Glucose [Mass/volume] in Serum or Plasma [2345-7] 04/14/2024 03:51 PM 249 mg/dL N Blood chemistry[[id number]] Glucose [Mass/volume] in Serum or Plasma [2345-7] 04/14/2024 05:17 PM 168 mg/dL N Blood chemistry[[id number]] Glucose [Mass/volume] in Serum or Plasma [2345-7] 04/14/2024 12:14 PM 143 mg/dL N Blood chemistry[[id number]] Glucose [Mass/volume] in Serum or Plasma [2345-7] 04/14/2024 09:44 AM 157 mg/dL N Blood chemistry[[id number]] Glucose [Mass/volume] in Serum or Plasma [2345-7] 04/13/2024 04:52 PM 295 mg/dL N Blood chemistry[[id number]] Glucose [Mass/volume] in Serum or Plasma [2345-7] 04/13/2024 02:22 PM 188 mg/dL N Blood chemistry[[id number]] Glucose [Mass/volume] in Serum or Plasma [2345-7] 04/13/2024 10:14 AM 130 mg/dL N Blood chemistry[[id number]] Glucose [Mass/volume] in Serum or Plasma [2345-7] 04/13/2024 12:32 PM 149 mg/dL N Blood chemistry[[id number]] Glucose [Mass/volume] in Serum or Plasma [2345-7] 04/12/2024 01:00 PM 289 mg/dL N Blood chemistry[[id number]] Glucose [Mass/volume] in Serum or Plasma [2345-7] 04/12/2024 10:31 AM 145 mg/dL N Blood chemistry[[id number]] Glucose [Mass/volume] in Serum or Plasma [2345-7] 04/12/2024 06:05 PM 206 mg/dL N Blood chemistry[[id number]] Glucose [Mass/volume] in Serum or Plasma [2345-7] 04/12/2024 01:02 PM 149 mg/dL N Blood chemistry[[id number]] Glucose [Mass/volume] in Serum or Plasma [2345-7] 04/11/2024 05:10 PM 390 mg/dL N Blood chemistry[[id number]] Glucose [Mass/volume] in Serum or Plasma [2345-7] 04/11/2024 04:11 PM 206 mg/dL N Blood chemistry[[id number]] Glucose [Mass/volume] in Serum or Plasma [2345-7] 04/11/2024 02:06 PM 110 mg/dL N Blood chemistry[[id number]] Glucose [Mass/volume] in Serum or Plasma [2345-7] 04/11/2024 10:40 AM 162 mg/dL N Blood chemistry[[id number]] Glucose [Mass/volume] in Serum or Plasma [2345-7] 04/10/2024 05:48 PM 164 mg/dL N Blood chemistry[[id number]] Glucose [Mass/volume] in Serum or Plasma [2345-7] 04/10/2024 04:47 PM 160 mg/dL N Blood chemistry[[id number]] Glucose [Mass/volume] in Serum or Plasma [2345-7] 04/10/2024 01:21 PM 137 mg/dL N Blood chemistry[[id number]] Glucose [Mass/volume] in Serum or Plasma [2345-7] 04/10/2024 11:45 AM 336 mg/dL N Blood chemistry[[id number]] Glucose [Mass/volume] in Serum or Plasma [2345-7] 04/09/2024 06:07 PM 185 mg/dL N Blood chemistry[[id number]] Glucose [Mass/volume] in Serum or Plasma [2345-7] 04/09/2024 03:44 PM 235 mg/dL N Blood chemistry[[id number]] Glucose [Mass/volume] in Serum or Plasma [2345-7] 04/09/2024 01:28 PM 134 mg/dL N Blood chemistry[[id number]] Glucose [Mass/volume] in Serum or Plasma [2345-7] 04/09/2024 10:10 AM 150 mg/dL N Blood chemistry[[id number]] Glucose [Mass/volume] in Serum or Plasma [2345-7] 04/08/2024 04:55 PM 152 mg/dL N Blood chemistry[[id number]] Glucose [Mass/volume] in Serum or Plasma [2345-7] 04/08/2024 01:39 PM 234 mg/dL N Blood chemistry[[id number]] Glucose [Mass/volume] in Serum or Plasma [2345-7] 04/08/2024 01:07 PM 137 mg/dL N Blood chemistry[[id number]] Glucose [Mass/volume] in Serum or Plasma [2345-7] 04/08/2024 10:57 AM 174 mg/dL N Blood chemistry[[id number]] Glucose [Mass/volume] in Serum or Plasma [2345-7] 04/07/2024 05:42 PM 113 mg/dL N Blood chemistry[[id number]] Glucose [Mass/volume] in Serum or Plasma [2345-7] 04/07/2024 01:30 PM 248 mg/dL N Blood chemistry[[id number]] Glucose [Mass/volume] in Serum or Plasma [2345-7] 04/07/2024 01:26 PM 141 mg/dL N Blood chemistry[[id number]] Glucose [Mass/volume] in Serum or Plasma [2345-7] 04/07/2024 09:44 AM 194 mg/dL N Blood chemistry[[id number]] Glucose [Mass/volume] in Serum or Plasma [2345-7] 04/06/2024 05:20 PM 176 mg/dL N Blood chemistry[[id number]] Glucose [Mass/volume] in Serum or Plasma [2345-7] 04/06/2024 04:48 PM 196 mg/dL N Blood chemistry[[id number]] Glucose [Mass/volume] in Serum or Plasma [2345-7] 04/06/2024 12:48 PM 108 mg/dL N Blood chemistry[[id number]] Glucose [Mass/volume] in Serum or Plasma [2345-7] 04/06/2024 10:24 AM 140 mg/dL N Blood chemistry[[id number]] Glucose [Mass/volume] in Serum or Plasma [2345-7] 04/05/2024 05:21 PM 197 mg/dL N Blood chemistry[[id number]] Glucose [Mass/volume] in Serum or Plasma [2345-7] 04/05/2024 01:18 PM 183 mg/dL N Blood chemistry[[id number]] Glucose [Mass/volume] in Serum or Plasma [2345-7] 04/05/2024 11:26 AM 114 mg/dL N Blood chemistry[[id number]] Glucose [Mass/volume] in Serum or Plasma [2345-7] 04/05/2024 10:18 AM 156 mg/dL N Blood chemistry[[id number]] Glucose [Mass/volume] in Serum or Plasma [2345-7] 04/04/2024 05:15 PM 196 mg/dL N Blood chemistry[[id number]] Glucose [Mass/volume] in Serum or Plasma [2345-7] 04/04/2024 01:30 PM 222 mg/dL N Blood chemistry[[id number]] Glucose [Mass/volume] in Serum or Plasma [2345-7] 04/04/2024 12:37 PM 135 mg/dL N Blood chemistry[[id number]] Glucose [Mass/volume] in Serum or Plasma [2345-7] 04/04/2024 10:17 AM 150 mg/dL N Blood chemistry[[id number]] Glucose [Mass/volume] in Serum or Plasma [2345-7] 04/04/2024 07:00 AM 200 mg/dL N Blood chemistry[[id number]] Glucose [Mass/volume] in Serum or Plasma [2345-7] 04/03/2024 04:03 PM 266 mg/dL N Blood chemistry[[id number]] Glucose [Mass/volume] in Serum or Plasma [2345-7] 04/03/2024 12:55 PM 388 mg/dL N Blood chemistry[[id number]] Glucose [Mass/volume] in Serum or Plasma [2345-7] 04/03/2024 09:00 AM 176 mg/dL N Blood chemistry[[id number]] Glucose [Mass/volume] in Serum or Plasma [2345-7] 04/02/2024 05:05 PM 220 mg/dL N Blood chemistry[[id number]] Glucose [Mass/volume] in Serum or Plasma [2345-7] 04/02/2024 01:03 PM 213 mg/dL N Blood chemistry[[id number]] Glucose [Mass/volume] in Serum or Plasma [2345-7] 04/02/2024 12:44 PM 126 mg/dL N Blood chemistry[[id number]] Glucose [Mass/volume] in Serum or Plasma [2345-7] 04/02/2024 10:16 AM 160 mg/dL N Blood chemistry[[id number]] Glucose [Mass/volume] in Serum or Plasma [2345-7] 04/01/2024 05:19 PM 217 mg/dL N Blood chemistry[[id number]] Glucose [Mass/volume] in Serum or Plasma [2345-7] 04/01/2024 03:29 PM 219 mg/dL N Blood chemistry[[id number]] Glucose [Mass/volume] in Serum or Plasma [2345-7] 04/01/2024 12:43 PM 240 mg/dL N Blood chemistry[[id number]] Glucose [Mass/volume] in Serum or Plasma [2345-7] 04/01/2024 10:07 AM 163 mg/dL N Blood chemistry[[id number]] Glucose [Mass/volume] in Serum or Plasma [2345-7] 03/31/2024 05:21 PM 173 mg/dL N Blood chemistry[[id number]] Glucose [Mass/volume] in Serum or Plasma [2345-7] 03/31/2024 02:12 PM 267 mg/dL N Blood chemistry[[id number]] Glucose [Mass/volume] in Serum or Plasma [2345-7] 03/31/2024 12:55 PM 136 mg/dL N Blood chemistry[[id number]] Glucose [Mass/volume] in Serum or Plasma [2345-7] 03/31/2024 10:08 AM 180 mg/dL N Blood chemistry[[id number]] Glucose [Mass/volume] in Serum or Plasma [2345-7] 03/30/2024 05:00 PM 212 mg/dL N Blood chemistry[[id number]] Glucose [Mass/volume] in Serum or Plasma [2345-7] 03/30/2024 03:02 PM 180 mg/dL N Blood chemistry[[id number]] Glucose [Mass/volume] in Serum or Plasma [2345-7] 03/30/2024 12:38 PM 224 mg/dL N Blood chemistry[[id number]] Glucose [Mass/volume] in Serum or Plasma [2345-7] 03/30/2024 10:05 AM 163 mg/dL N Blood chemistry[[id number]] Glucose [Mass/volume] in Serum or Plasma [2345-7] 03/29/2024 05:53 PM 127 mg/dL N Blood chemistry[[id number]] Glucose [Mass/volume] in Serum or Plasma [2345-7] 03/29/2024 03:30 PM 217 mg/dL N Blood chemistry[[id number]] Glucose [Mass/volume] in Serum or Plasma [2345-7] 03/29/2024 01:03 PM 111 mg/dL N Blood chemistry[[id number]] Glucose [Mass/volume] in Serum or Plasma [2345-7] 03/29/2024 10:29 AM 171 mg/dL N Blood chemistry[[id number]] Glucose [Mass/volume] in Serum or Plasma [2345-7] 03/28/2024 05:44 PM 117 mg/dL N Blood chemistry[[id number]] Glucose [Mass/volume] in Serum or Plasma [2345-7] 03/28/2024 03:24 PM 209 mg/dL N Blood chemistry[[id number]] Glucose [Mass/volume] in Serum or Plasma [2345-7] 03/28/2024 01:36 PM 133 mg/dL N Blood chemistry[[id number]] Glucose [Mass/volume] in Serum or Plasma [2345-7] 03/28/2024 11:30 AM 156 mg/dL N Blood chemistry[[id number]] Glucose [Mass/volume] in Serum or Plasma [2345-7] 03/27/2024 05:23 PM 177 mg/dL N Blood chemistry[[id number]] Glucose [Mass/volume] in Serum or Plasma [2345-7] 03/27/2024 02:28 PM 204 mg/dL N Blood chemistry[[id number]] Glucose [Mass/volume] in Serum or Plasma [2345-7] 03/27/2024 01:32 PM 123 mg/dL N Blood chemistry[[id number]] Glucose [Mass/volume] in Serum or Plasma [2345-7] 03/27/2024 11:45 AM 151 mg/dL N Blood chemistry[[id number]] Glucose [Mass/volume] in Serum or Plasma [2345-7] 03/27/2024 07:13 AM 178 mg/dL N Blood chemistry[[id number]] Glucose [Mass/volume] in Serum or Plasma [2345-7] 03/26/2024 05:42 PM 168 mg/dL N Blood chemistry[[id number]] Glucose [Mass/volume] in Serum or Plasma [2345-7] 03/26/2024 01:23 PM 138 mg/dL N Blood chemistry[[id number]] Glucose [Mass/volume] in Serum or Plasma [2345-7] 03/26/2024 11:29 AM 146 mg/dL N Blood chemistry[[id number]] Glucose [Mass/volume] in Serum or Plasma [2345-7] 03/25/2024 05:10 PM 163 mg/dL N Blood chemistry[[id number]] Glucose [Mass/volume] in Serum or Plasma [2345-7] 03/25/2024 03:39 PM 184 mg/dL N Blood chemistry[[id number]] Glucose [Mass/volume] in Serum or Plasma [2345-7] 03/25/2024 01:19 PM 130 mg/dL N Blood chemistry[[id number]] Glucose [Mass/volume] in Serum or Plasma [2345-7] 03/25/2024 10:27 AM 175 mg/dL N Blood chemistry[[id number]] Glucose [Mass/volume] in Serum or Plasma [2345-7] 03/24/2024 05:23 PM 137 mg/dL N Blood chemistry[[id number]] Glucose [Mass/volume] in Serum or Plasma [2345-7] 03/24/2024 03:03 PM 185 mg/dL N Blood chemistry[[id number]] Glucose [Mass/volume] in Serum or Plasma [2345-7] 03/24/2024 12:56 PM 157 mg/dL N Blood chemistry[[id number]] Glucose [Mass/volume] in Serum or Plasma [2345-7] 03/24/2024 09:10 AM 169 mg/dL N Blood chemistry[[id number]] Glucose [Mass/volume] in Serum or Plasma [2345-7] 03/23/2024 05:22 PM 155 mg/dL N Blood chemistry[[id number]] Glucose [Mass/volume] in Serum or Plasma [2345-7] 03/23/2024 03:55 PM 259 mg/dL N Blood chemistry[[id number]] Glucose [Mass/volume] in Serum or Plasma [2345-7] 03/23/2024 12:51 PM 122 mg/dL N Blood chemistry[[id number]] Glucose [Mass/volume] in Serum or Plasma [2345-7] 03/23/2024 10:49 AM 140 mg/dL N Blood chemistry[[id number]] Glucose [Mass/volume] in Serum or Plasma [2345-7] 03/22/2024 05:41 PM 155 mg/dL N Blood chemistry[[id number]] Glucose [Mass/volume] in Serum or Plasma [2345-7] 03/22/2024 01:32 PM 257 mg/dL N Blood chemistry[[id number]] Glucose [Mass/volume] in Serum or Plasma [2345-7] 03/22/2024 12:56 PM 130 mg/dL N Blood chemistry[[id number]] Glucose [Mass/volume] in Serum or Plasma [2345-7] 03/22/2024 09:37 AM 163 mg/dL N Blood chemistry[[id number]] Glucose [Mass/volume] in Serum or Plasma [2345-7] 03/21/2024 05:37 PM 224 mg/dL N Blood chemistry[[id number]] Glucose [Mass/volume] in Serum or Plasma [2345-7] 03/21/2024 04:50 PM 181 mg/dL N Blood chemistry[[id number]] Glucose [Mass/volume] in Serum or Plasma [2345-7] 03/21/2024 12:32 PM 135 mg/dL N Blood chemistry[[id number]] Glucose [Mass/volume] in Serum or Plasma [2345-7] 03/21/2024 12:28 PM 135 mg/dL N Blood chemistry[[id number]] Glucose [Mass/volume] in Serum or Plasma [2345-7] 03/21/2024 10:17 AM 171 mg/dL N Blood chemistry[[id number]] Glucose [Mass/volume] in Serum or Plasma [2345-7] 03/20/2024 05:00 PM 119 mg/dL N Blood chemistry[[id number]] Glucose [Mass/volume] in Serum or Plasma [2345-7] 03/20/2024 02:58 PM 157 mg/dL N Blood chemistry[[id number]] Glucose [Mass/volume] in Serum or Plasma [2345-7] 03/20/2024 11:16 AM 127 mg/dL N Blood chemistry[[id number]] Glucose [Mass/volume] in Serum or Plasma [2345-7] 03/19/2024 04:58 PM 196 mg/dL N Blood chemistry[[id number]] Glucose [Mass/volume] in Serum or Plasma [2345-7] 03/19/2024 03:09 PM 212 mg/dL N Blood chemistry[[id number]] Glucose [Mass/volume] in Serum or Plasma [2345-7] 03/19/2024 01:13 PM 122 mg/dL N Blood chemistry[[id number]] Glucose [Mass/volume] in Serum or Plasma [2345-7] 03/19/2024 10:18 AM 133 mg/dL N Blood chemistry[[id number]] Glucose [Mass/volume] in Serum or Plasma [2345-7] 03/18/2024 05:25 PM 200 mg/dL N Blood chemistry[[id number]] Glucose [Mass/volume] in Serum or Plasma [2345-7] 03/18/2024 02:31 PM 185 mg/dL N Blood chemistry[[id number]] Glucose [Mass/volume] in Serum or Plasma [2345-7] 03/18/2024 01:10 PM 121 mg/dL N Blood chemistry[[id number]] Glucose [Mass/volume] in Serum or Plasma [2345-7] 03/18/2024 10:02 AM 143 mg/dL N Blood chemistry[[id number]] Glucose [Mass/volume] in Serum or Plasma [2345-7] 03/17/2024 05:40 PM 188 mg/dL N Blood chemistry[[id number]] Glucose [Mass/volume] in Serum or Plasma [2345-7] 03/17/2024 01:08 PM 124 mg/dL N Blood chemistry[[id number]] Glucose [Mass/volume] in Serum or Plasma [2345-7] 03/17/2024 01:03 PM 201 mg/dL N Blood chemistry[[id number]] Glucose [Mass/volume] in Serum or Plasma [2345-7] 03/17/2024 10:24 AM 159 mg/dL N Blood chemistry[[id number]] Glucose [Mass/volume] in Serum or Plasma [2345-7] 03/16/2024 05:21 PM 222 mg/dL N Blood chemistry[[id number]] Glucose [Mass/volume] in Serum or Plasma [2345-7] 03/16/2024 03:07 PM 185 mg/dL N Blood chemistry[[id number]] Glucose [Mass/volume] in Serum or Plasma [2345-7] 03/16/2024 12:59 PM 129 mg/dL N Blood chemistry[[id number]] Glucose [Mass/volume] in Serum or Plasma [2345-7] 03/16/2024 09:27 AM 139 mg/dL N Blood chemistry[[id number]] Glucose [Mass/volume] in Serum or Plasma [2345-7] 03/15/2024 05:49 PM 138 mg/dL N Blood chemistry[[id number]] Glucose [Mass/volume] in Serum or Plasma [2345-7] 03/15/2024 02:41 PM 237 mg/dL N Blood chemistry[[id number]] Glucose [Mass/volume] in Serum or Plasma [2345-7] 03/15/2024 01:05 PM 128 mg/dL N Blood chemistry[[id number]] Glucose [Mass/volume] in Serum or Plasma [2345-7] 03/15/2024 11:26 AM 166 mg/dL N Blood chemistry[[id number]] Glucose [Mass/volume] in Serum or Plasma [2345-7] 03/14/2024 05:35 PM 184 mg/dL N Blood chemistry[[id number]] Glucose [Mass/volume] in Serum or Plasma [2345-7] 03/14/2024 05:27 PM 222 mg/dL N Blood chemistry[[id number]] Glucose [Mass/volume] in Serum or Plasma [2345-7] 03/14/2024 03:34 PM 147 mg/dL N Blood chemistry[[id number]] Glucose [Mass/volume] in Serum or Plasma [2345-7] 03/14/2024 02:02 PM 147 mg/dL N Blood chemistry[[id number]] Glucose [Mass/volume] in Serum or Plasma [2345-7] 03/14/2024 10:41 AM 300 mg/dL N Blood chemistry[[id number]] Glucose [Mass/volume] in Serum or Plasma [2345-7] 03/14/2024 08:38 AM 225 mg/dL N Blood chemistry[[id number]] Glucose [Mass/volume] in Serum or Plasma [2345-7] 03/13/2024 05:42 PM 229 mg/dL N Blood chemistry[[id number]] Glucose [Mass/volume] in Serum or Plasma [2345-7] 03/13/2024 01:34 PM 140 mg/dL N Blood chemistry[[id number]] Glucose [Mass/volume] in Serum or Plasma [2345-7] 03/13/2024 10:17 AM 144 mg/dL N Blood chemistry[[id number]] Glucose [Mass/volume] in Serum or Plasma [2345-7] 03/12/2024 05:21 PM 199 mg/dL N Blood chemistry[[id number]] Glucose [Mass/volume] in Serum or Plasma [2345-7] 03/12/2024 01:39 PM 173 mg/dL N Blood chemistry[[id number]] Glucose [Mass/volume] in Serum or Plasma [2345-7] 03/12/2024 01:10 PM 159 mg/dL N Blood chemistry[[id number]] Glucose [Mass/volume] in Serum or Plasma [2345-7] 03/12/2024 10:04 AM 129 mg/dL N Blood chemistry[[id number]] Glucose [Mass/volume] in Serum or Plasma [2345-7] 03/11/2024 04:51 PM 151 mg/dL N Blood chemistry[[id number]] Glucose [Mass/volume] in Serum or Plasma [2345-7] 03/11/2024 02:32 PM 241 mg/dL N Blood chemistry[[id number]] Glucose [Mass/volume] in Serum or Plasma [2345-7] 03/11/2024 01:26 PM 68 mg/dL N Blood chemistry[[id number]] Glucose [Mass/volume] in Serum or Plasma [2345-7] 03/11/2024 01:06 PM 68 mg/dL N Blood chemistry[[id number]] Glucose [Mass/volume] in Serum or Plasma [2345-7] 03/11/2024 09:57 AM 136 mg/dL N Blood chemistry[[id number]] Glucose [Mass/volume] in Serum or Plasma [2345-7] 03/10/2024 05:02 PM 170 mg/dL N Blood chemistry[[id number]] Glucose [Mass/volume] in Serum or Plasma [2345-7] 03/10/2024 03:05 PM 136 mg/dL N Blood chemistry[[id number]] Glucose [Mass/volume] in Serum or Plasma [2345-7] 03/10/2024 12:59 PM 166 mg/dL N Blood chemistry[[id number]] Glucose [Mass/volume] in Serum or Plasma [2345-7] 03/10/2024 10:44 AM 148 mg/dL N Blood chemistry[[id number]] Glucose [Mass/volume] in Serum or Plasma [2345-7] 03/10/2024 10:00 AM 304 mg/dL N Blood chemistry[[id number]] Glucose [Mass/volume] in Serum or Plasma [2345-7] 03/09/2024 05:23 PM 163 mg/dL N Blood chemistry[[id number]] Glucose [Mass/volume] in Serum or Plasma [2345-7] 03/09/2024 11:56 AM 118 mg/dL N Blood chemistry[[id number]] Glucose [Mass/volume] in Serum or Plasma [2345-7] 03/09/2024 11:46 AM 118 mg/dL N Blood chemistry[[id number]] Glucose [Mass/volume] in Serum or Plasma [2345-7] 03/09/2024 09:47 AM 145 mg/dL N Blood chemistry[[id number]] Glucose [Mass/volume] in Serum or Plasma [2345-7] 03/08/2024 05:11 PM 185 mg/dL N Blood chemistry[[id number]] Glucose [Mass/volume] in Serum or Plasma [2345-7] 03/08/2024 01:33 PM 218 mg/dL N Blood chemistry[[id number]] Glucose [Mass/volume] in Serum or Plasma [2345-7] 03/08/2024 01:00 PM 138 mg/dL N Blood chemistry[[id number]] Glucose [Mass/volume] in Serum or Plasma [2345-7] 03/08/2024 12:59 PM 138 mg/dL N Blood chemistry[[id number]] Glucose [Mass/volume] in Serum or Plasma [2345-7] 03/08/2024 10:12 AM 137 mg/dL N Blood chemistry[[id number]] Glucose [Mass/volume] in Serum or Plasma [2345-7] 03/07/2024 05:12 PM 201 mg/dL N Blood chemistry[[id number]] Glucose [Mass/volume] in Serum or Plasma [2345-7] 03/07/2024 02:17 PM 167 mg/dL N Blood chemistry[[id number]] Glucose [Mass/volume] in Serum or Plasma [2345-7] 03/07/2024 01:02 PM 121 mg/dL N Blood chemistry[[id number]] Glucose [Mass/volume] in Serum or Plasma [2345-7] 03/07/2024 10:14 AM 127 mg/dL N Blood chemistry[[id number]] Glucose [Mass/volume] in Serum or Plasma [2345-7] 03/07/2024 09:42 AM 191 mg/dL N Blood chemistry[[id number]] Glucose [Mass/volume] in Serum or Plasma [2345-7] 03/06/2024 04:39 PM 207 mg/dL N Blood chemistry[[id number]] Glucose [Mass/volume] in Serum or Plasma [2345-7] 03/06/2024 01:20 PM 143 mg/dL N Blood chemistry[[id number]] Glucose [Mass/volume] in Serum or Plasma [2345-7] 03/06/2024 09:25 AM 199 mg/dL N Blood chemistry[[id number]] Glucose [Mass/volume] in Serum or Plasma [2345-7] 03/05/2024 05:15 PM 220 mg/dL N Blood chemistry[[id number]] Glucose [Mass/volume] in Serum or Plasma [2345-7] 03/05/2024 02:34 PM 185 mg/dL N Blood chemistry[[id number]] Glucose [Mass/volume] in Serum or Plasma [2345-7] 03/05/2024 12:51 PM 103 mg/dL N Blood chemistry[[id number]] Glucose [Mass/volume] in Serum or Plasma [2345-7] 03/05/2024 10:13 AM 147 mg/dL N Blood chemistry[[id number]] Glucose [Mass/volume] in Serum or Plasma [2345-7] 03/04/2024 04:29 PM 178 mg/dL N Tuberculosis reaction wheal[ 39861-8] Tuberculosis reaction wheal [29639-1] 03/04/2024 02:34 PM 0 mm NEG Blood chemistry[[id number]] Glucose [Mass/volume] in Serum or Plasma [2345-7] 03/04/2024 01:41 PM 135 mg/dL N Blood chemistry[[id number]] Glucose [Mass/volume] in Serum or Plasma [2345-7] 03/04/2024 12:01 PM 109 mg/dL N Blood chemistry[[id number]] Glucose [Mass/volume] in Serum or Plasma [2345-7] 03/04/2024 09:29 AM 130 mg/dL N Blood chemistry[[id number]] Glucose [Mass/volume] in Serum or Plasma [2345-7] 03/03/2024 04:35 PM 168 mg/dL N Blood chemistry[[id number]] Glucose [Mass/volume] in Serum or Plasma [2345-7] 03/03/2024 01:24 PM 143 mg/dL N Blood chemistry[[id number]] Glucose [Mass/volume] in Serum or Plasma [2345-7] 03/03/2024 11:59 AM 107 mg/dL N Blood chemistry[[id number]] Glucose [Mass/volume] in Serum or Plasma [2345-7] 03/03/2024 10:02 AM 112 mg/dL N Blood chemistry[[id number]] Glucose [Mass/volume] in Serum or Plasma [2345-7] 03/02/2024 02:46 PM 185 mg/dL N Blood chemistry[[id number]] Glucose [Mass/volume] in Serum or Plasma [2345-7] 03/02/2024 12:30 PM 125 mg/dL N Blood chemistry[[id number]] Glucose [Mass/volume] in Serum or Plasma [2345-7] 03/02/2024 08:08 AM 191 mg/dL N Blood chemistry[[id number]] Glucose [Mass/volume] in Serum or Plasma [2345-7] 03/01/2024 04:39 PM 183 mg/dL N Blood chemistry[[id number]] Glucose [Mass/volume] in Serum or Plasma [2345-7] 03/01/2024 01:35 PM 151 mg/dL N Blood chemistry[[id number]] Glucose [Mass/volume] in Serum or Plasma [2345-7] 03/01/2024 12:59 PM 122 mg/dL N Blood chemistry[[id number]] Glucose [Mass/volume] in Serum or Plasma [2345-7] 03/01/2024 09:27 AM 106 mg/dL N Blood chemistry[[id number]] Glucose [Mass/volume] in Serum or Plasma [2345-7] 02/29/2024 04:43 PM 200 mg/dL N Blood chemistry[[id number]] Glucose [Mass/volume] in Serum or Plasma [2345-7] 02/29/2024 12:59 PM 177 mg/dL N Blood chemistry[[id number]] Glucose [Mass/volume] in Serum or Plasma [2345-7] 02/29/2024 11:59 AM 133 mg/dL N Blood chemistry[[id number]] Glucose [Mass/volume] in Serum or Plasma [2345-7] 02/29/2024 10:10 AM 255 mg/dL N Blood chemistry[[id number]] Glucose [Mass/volume] in Serum or Plasma [2345-7] 02/28/2024 03:54 PM 260 mg/dL N Blood chemistry[[id number]] Glucose [Mass/volume] in Serum or Plasma [2345-7] 02/28/2024 03:18 PM 189 mg/dL N Blood chemistry[[id number]] Glucose [Mass/volume] in Serum or Plasma [2345-7] 02/28/2024 01:44 PM 122 mg/dL N Blood chemistry[[id number]] Glucose [Mass/volume] in Serum or Plasma [2345-7] 02/28/2024 09:04 AM 216 mg/dL N Blood chemistry[[id number]] Glucose [Mass/volume] in Serum or Plasma [2345-7] 02/27/2024 04:21 PM 150 mg/dL N Blood chemistry[[id number]] Glucose [Mass/volume] in Serum or Plasma [2345-7] 02/27/2024 03:57 PM 168 mg/dL N Blood chemistry[[id number]] Glucose [Mass/volume] in Serum or Plasma [2345-7] 02/27/2024 12:44 PM 130 mg/dL N Blood chemistry[[id number]] Glucose [Mass/volume] in Serum or Plasma [2345-7] 02/27/2024 09:00 AM 120 mg/dL N Blood chemistry[[id number]] Glucose [Mass/volume] in Serum or Plasma [2345-7] 02/26/2024 04:41 PM 150 mg/dL N Blood chemistry[[id number]] Glucose [Mass/volume] in Serum or Plasma [2345-7] 02/26/2024 03:34 PM 212 mg/dL N Blood chemistry[[id number]] Glucose [Mass/volume] in Serum or Plasma [2345-7] 02/26/2024 11:57 AM 165 mg/dL N Blood chemistry[[id number]] Glucose [Mass/volume] in Serum or Plasma [2345-7] 02/26/2024 09:38 AM 135 mg/dL N Blood chemistry[[id number]] Glucose [Mass/volume] in Serum or Plasma [2345-7] 02/26/2024 06:25 AM 141 mg/dL N Tuberculosis reaction wheal[ 73988-1] Tuberculosis reaction wheal [44157-2] 02/25/2024 04:13 PM 0 mm NEG Blood chemistry[[id number]] Glucose [Mass/volume] in Serum or Plasma [2345-7] 02/25/2024 04:09 PM 107 mg/dL N Blood chemistry[[id number]] Glucose [Mass/volume] in Serum or Plasma [2345-7] 02/25/2024 12:28 PM 113 mg/dL N Blood chemistry[[id number]] Glucose [Mass/volume] in Serum or Plasma [2345-7] 02/25/2024 09:17 AM 228 mg/dL N COVID-19 Test Viral Antigen null flavor [null] 02/24/2024 04:00 PM See note NEG COVID-19 Test Viral Antigen Blood chemistry[[id number]] Glucose [Mass/volume] in Serum or Plasma [2345-7] [...] - PRN, Give if no results from [facility] oral 1.0 1.0 d 2023 Active Dulcolax (bisacodyl) (bisacodyl) 10 mg suppository (Dulcolax (bisacodyl) (bisacodyl)) 1 suppository, rectal, Once A Day - PRN, Give rectally if can't take p/o, if no results from [facility] rectal 1.0 1.0 d 2023 Active Eliquis [...] 1.0 8.0 h 05/08 Active Senior Tabs (lqypnafd-tsc-g r-vqlyhnh-hxugv n) 0.4 mg-300 mcg- 250 mcg tablet (Senior Tabs (ytpqycpv-ash-k a-uihbnxp-dwvmf n)) 1, oral, Once A Day oral [...] d 06/25 Active Ocusoft Eyelid Cleansing Pads ([employer]) - pad (Ocusoft Eyelid Cleansing Pads ([employer])) 2, miscellaneous , Once A Morning, [...] U-100) 10 units, subcutaneous, With Meals subcutaneo us 1.0 08/07 Active levofloxacin 750 mg tablet [...] units, subcutaneous, At Bedtime subcutaneo us 1.0 01/115 Active latanoprost 0.005 % drops (latanoprost) 1 [...] Twice A Day oral 1.0 12.0 h 01/17 Active hydrocodone-gabby taminophen 5-325 mg tablet (hydrocodone-ac [...] (insulin glargine-yfgn) 140 units, subcutaneous, At Bedtime [facility] us 1.0 01/15 Active Ozempic (semaglutide) 0.25 mg or 0.5 mg (2 mg/3 mL) pen injector (Ozempic (semaglutide)) 0.5mg, subcutaneous, [facility] A [facility] 1.0 1.0 d 02/06 Active albuterol sulfate 2.5 mg /3 mL (0.083 %) solution for nebulization (albuterol sulfate) 1, inhalation, Every 6 Hours inhalation 1.0 6.0 h 01/15 Active azithromycin 250 mg tablet (azithromycin) 1 tab, oral, Once A Day oral 1.0 1.0 d 01/17 Active cefdinir 300 mg capsule (cefdinir) 1 capsule, oral, Twice A Day oral 1.0 12.0 h 01/15 Active cefdinir 300 mg capsule (cefdinir) 1 capsule, oral, Twice A Day oral 1.0 12.0 h 01/22 Active Lantus Solostar U-100 Insulin (insulin glargine) 100 unit/mL (3 mL) insulin pen (Lantus Solostar U-100 Insulin (insulin glargine)) 140 units, subcutaneous, At Bedtime [facility] 1.0 2024 Active Eliquis (apixaban) 5 mg tablet (Eliquis (apixaban)) 1, oral, Twice A Day oral 1.0 12.0 h 02/03 Active oxybutynin chloride 5 mg tablet (oxybutynin chloride) 1, oral, Once A Day oral 1.0 1.0 d 2024 Active Vital Signs Date Vital Result Comment 04/11/2024 10:12 PM Oxygen Saturation (25428-8) 93 % 04/11/2024 08:25 AM Temperature (8310-5) 97.3 [degF] Respiratory Rate (9279-1) 19 /min Heart Rate (8867-4) 95 /min Blood Pressure Systolic (8480-6) 127 mm[Hg] Blood Pressure Diastolic (8462-4) 60 mm[Hg] 04/11/2024 08:10 AM Oxygen Saturation (48576-4) 96 % 04/10/2024 07:19 PM Oxygen Saturation (91811-9) 94 % 04/10/2024 11:43 AM Temperature (8310-5) 97.3 [degF] Respiratory Rate (9279-1) 16 /min Heart Rate (8867-4) 104 /min Blood Pressure Systolic (8480-6) 127 mm[Hg] Blood Pressure Diastolic (8462-4) 77 mm[Hg] 04/10/2024 11:42 AM Oxygen Saturation (59401-2) 95 % 04/09/2024 09:46 PM Oxygen Saturation (95864-7) 98 % 04/09/2024 08:36 AM Temperature (8310-5) 97.7 [degF] Oxygen Saturation (80874-7) 96 % Respiratory Rate (9279-1) 19 /min Heart Rate (8867-4) 112 /min Blood Pressure Systolic (8480-6) 142 mm[Hg] Blood Pressure Diastolic (8462-4) 92 mm[Hg] 04/08/2024 11:24 PM Oxygen Saturation (98312-1) 98 % 04/08/2024 10:18 AM Temperature (8310-5) 97.9 [degF] Respiratory Rate (9279-1) 19 /min Heart Rate (8867-4) 98 /min Blood Pressure Systolic (8480-6) 122 mm[Hg] Blood Pressure Diastolic (8462-4) 69 mm[Hg] 04/08/2024 07:11 AM Oxygen Saturation (57470-8) 95 % 04/07/2024 09:05 PM Oxygen Saturation (70838-3) 97 % 04/07/2024 09:17 AM Temperature (8310-5) 97.4 [degF] Respiratory Rate (9279-1) 20 /min Heart Rate (8867-4) 96 /min Blood Pressure Systolic (8480-6) 105 mm[Hg] Blood Pressure Diastolic (8462-4) 65 mm[Hg] 04/07/2024 07:34 AM Oxygen Saturation (16746-6) 96 % 04/06/2024 10:48 PM Temperature (8310-5) 98.1 [degF] Respiratory Rate (9279-1) 20 /min Heart Rate (8867-4) 90 /min Blood Pressure Systolic (8480-6) 120 mm[Hg] Blood Pressure Diastolic (8462-4) 68 mm[Hg] 04/06/2024 03:48 PM Body Weight (52753-0) 280 [lb_av] Body Mass Index (41566-0) 37.97 kg/m2 04/06/2024 06:38 AM Temperature (8310-5) [...] 54 mm[Hg] 04/05/2024 12:18 PM Body Weight (85686-5) 278.8 [lb_av ] Body Mass Index (54659-2) 37.81 kg/m2 04/05/2024 07:41 AM Temperature (8310-5) [...] 59 mm[Hg] 04/04/2024 11:08 AM Body Weight (40287-2) 286.4 [lb_av ] Body Mass Index (13287-6) 38.84 kg/m2 04/03/2024 08:40 AM Body Weight (55560-3) 287.6 [lb_av ] Body Mass Index (57602-9) 39 kg/m2 04/02/2024 01:19 PM Body Weight (47765-6) 282 [lb_av] Body Mass Index (33658-5) 38.24 kg/m2 04/01/2024 03:19 PM Body Weight (53332-2) 279.6 [lb_av ] Body Mass Index (92563-6) 37.92 kg/m2 03/31/2024 10:17 AM Body Weight (72397-8) 281.2 [lb_av ] Body Mass Index (28615-6) 38.13 kg/m2 03/30/2024 02:26 PM Body Weight (49659-6) 277 [lb_av] Body Mass Index (49150-0) 37.56 kg/m2 03/28/2024 03:28 PM Body Weight (04054-5) 271.6 [lb_av ] Body Mass Index (85470-7) 36.83 kg/m2 03/26/2024 11:43 AM Body Weight (87063-3) 279.2 [lb_av ] Body Mass Index (32648-0) 37.86 kg/m2 03/25/2024 11:02 AM Body Weight (99455-7) 279.8 [lb_av ] Body Mass Index (39779-6) 37.94 kg/m2 03/24/2024 10:04 AM Body Weight (18830-6) 279.4 [lb_av ] Body Mass Index (76862-7) 37.89 kg/m2 03/23/2024 04:48 PM Body Weight (78925-9) 281 [lb_av] Body Mass Index (33488-0) 38.11 kg/m2 03/22/2024 11:31 AM Body Weight (44660-9) 279.6 [lb_av ] Body Mass Index (57116-3) 37.92 kg/m2 03/21/2024 10:10 AM Body Weight (70563-3) 280 [lb_av] Body Mass Index (66873-2) 37.97 kg/m2 03/19/2024 03:48 PM Body Weight (02111-3) 278.9 [lb_av ] Body Mass Index (79281-1) 37.82 kg/m2 03/18/2024 04:02 PM Body Weight (86092-1) 278.8 [lb_av ] Body Mass Index (25790-0) 37.81 kg/m2 03/17/2024 03:17 PM Body Weight (32529-5) 280 [lb_av] Body Mass Index (39906-0) 37.97 kg/m2 03/16/2024 09:55 AM Body Weight (35292-7) 286 [lb_av] Body Mass Index (74652-1) 38.78 kg/m2 03/15/2024 08:42 AM Body Weight (14127-5) 274.6 [lb_av ] Body Mass Index (42245-6) 37.24 kg/m2 03/14/2024 03:41 PM Body Weight (85954-4) 275.8 [lb_av ] Body Mass Index (91952-6) 37.4 kg/m2 03/13/2024 03:41 PM Body Weight (29055-2) 275 [lb_av] Body Mass Index (61181-9) 37.29 kg/m2 03/12/2024 10:43 AM Body Weight (36383-1) 278.6 [lb_av ] Body Mass Index (89635-2) 37.78 kg/m2 03/11/2024 02:45 PM Body Weight (83209-5) 279.8 [lb_av ] Body Mass Index (22073-4) 37.94 kg/m2 03/10/2024 04:13 PM Body Weight (63522-2) 283.4 [lb_av ] Body Mass Index (87236-4) 38.43 kg/m2 03/09/2024 12:26 PM Body Weight (81116-2) 280 [lb_av] Body Mass Index (62679-2) 37.97 kg/m2 03/08/2024 01:41 PM Body Weight (51328-2) 280.2 [lb_av ] Body Mass Index (67818-9) 38 kg/m2 03/07/2024 12:19 PM Body Weight (83717-4) 280 [lb_av] Body Mass Index (72807-8) 37.97 kg/m2 03/06/2024 03:24 PM Body Weight (74230-0) 277.2 [lb_av ] Body Mass Index (76956-6) 37.59 kg/m2 03/04/2024 09:36 AM Body Weight (00723-3) 278.5 [lb_av ] Body Mass Index (91267-4) 37.77 kg/m2 03/03/2024 04:18 PM Body Weight (21348-6) 278.4 [lb_av ] Body Mass Index (90402-3) 37.75 kg/m2 03/02/2024 04:32 PM Body Weight (05065-8) 278.2 [lb_av ] Body Mass Index (83146-1) 37.73 kg/m2 03/01/2024 10:51 AM Body Weight (82529-1) 278 [lb_av] Body Mass Index (61184-2) 37.7 kg/m2 02/29/2024 11:30 AM Body Weight (06377-1) 282 [lb_av] Body Mass Index (01600-0) 38.24 kg/m2 02/27/2024 08:39 AM Body Weight (77502-2) 272.8 [lb_av ] Body Mass Index (58929-0) 36.99 kg/m2 02/26/2024 09:13 AM Body Weight (41525-2) 275.6 [lb_av ] Body Mass Index (50243-6) 37.37 kg/m2 04/12/2024 08:30 AM Temperature (8310-5) 98 [degF] Oxygen Saturation (46818-9) 94 % Respiratory Rate (9279-1) 15 /min Heart Rate (8867-4) 117 /min Blood Pressure Systolic (8480-6) 120 mm[Hg] Blood Pressure Diastolic (8462-4) 64 mm[Hg] 04/12/2024 08:29 AM Oxygen Saturation (61019-5) 94 % 04/13/2024 06:05 AM Temperature (8310-5) 98.2 [degF] Oxygen Saturation (01354-5) 94 % Respiratory Rate (9279-1) 19 /min Heart Rate (8867-4) 110 /min Blood Pressure Systolic (8480-6) 118 mm[Hg] Blood Pressure Diastolic (8462-4) 66 mm[Hg] 04/12/2024 06:59 PM Oxygen Saturation (34930-7) 95 % 04/14/2024 07:48 AM Temperature (8310-5) 98.7 [degF] Respiratory Rate (9279-1) 16 /min Heart Rate (8867-4) 86 /min Blood Pressure Systolic (8480-6) 109 mm[Hg] Blood Pressure Diastolic (8462-4) 65 mm[Hg] 04/14/2024 07:47 AM Oxygen Saturation (40440-4) 95 % 04/13/2024 08:11 PM Oxygen Saturation (47563-1) 95 % 04/15/2024 08:34 AM Temperature (8310-5) 98 [degF] Respiratory Rate (9279-1) 18 /min Heart Rate (8867-4) 92 /min Blood Pressure Systolic (8480-6) 119 mm[Hg] Blood Pressure Diastolic (8462-4) 66 mm[Hg] 04/15/2024 07:48 AM Oxygen Saturation (70679-9) 96 % 04/14/2024 09:51 PM Oxygen Saturation (73689-1) 95 % 04/16/2024 09:09 AM Oxygen Saturation (36212-6) 96 % 04/15/2024 11:56 PM Oxygen Saturation (96813-8) 95 % 04/16/2024 10:00 PM Oxygen Saturation (51073-2) 95 % 04/16/2024 04:01 PM Temperature (8310-5) [...] 62 mm[Hg] 04/18/2024 06:19 AM Oxygen Saturation (51210-2) 94 % 04/17/2024 08:04 PM Temperature (8310-5) 97.9 [degF] Oxygen Saturation (42415-3) 92 % Respiratory Rate (9279-1) 18 /min Heart Rate (8867-4) 118 /min Blood Pressure Systolic (8480-6) 96 mm[Hg] Blood Pressure Diastolic (8462-4) 59 mm[Hg] 04/17/2024 03:57 PM Temperature (8310-5) 97.1 [degF] Respiratory Rate (9279-1) 20 /min Heart Rate (8867-4) 128 /min Blood Pressure Systolic (8480-6) 120 mm[Hg] Blood Pressure Diastolic (8462-4) 65 mm[Hg] 04/17/2024 03:56 PM Oxygen Saturation (47370-8) 94 % 04/19/2024 07:37 AM Temperature (8310-5) 97.8 [degF] Oxygen Saturation (23280-7) 96 % Respiratory Rate (9279-1) 19 /min Heart Rate (8867-4) 100 /min Blood Pressure Systolic (8480-6) 112 mm[Hg] Blood Pressure Diastolic (8462-4) 54 mm[Hg] 04/18/2024 08:42 PM Oxygen Saturation (68322-3) 96 % 04/20/2024 06:36 AM Temperature (8310-5) 98 [degF] Respiratory Rate (9279-1) 17 /min Heart Rate (8867-4) 98 /min Blood Pressure Systolic (8480-6) 120 mm[Hg] Blood Pressure Diastolic (8462-4) 58 mm[Hg] 04/20/2024 06:35 AM Oxygen Saturation (55566-6) 96 % 04/20/2024 04:58 AM Oxygen Saturation (17911-8) 94 % 04/20/2024 08:09 PM Oxygen Saturation (59372-2) 96 % 04/21/2024 09:38 PM Oxygen Saturation (78078-7) 96 % 04/21/2024 04:27 PM Temperature (8310-5) 98.2 [degF] Oxygen Saturation (43124-8) 94 % Respiratory Rate (9279-1) 18 /min Heart Rate (8867-4) 96 /min Blood Pressure Systolic (8480-6) 137 mm[Hg] Blood Pressure Diastolic (8462-4) 71 mm[Hg] 04/21/2024 03:11 PM Oxygen Saturation (70206-2) 94 % 04/22/2024 07:47 AM Temperature (8310-5) 99.6 [degF] Oxygen Saturation (04034-2) 97 % Respiratory Rate (9279-1) 20 /min Heart Rate (8867-4) 115 /min Blood Pressure Systolic (8480-6) 132 mm[Hg] Blood Pressure Diastolic (8462-4) 79 mm[Hg] 04/22/2024 08:54 PM Oxygen Saturation (25903-8) 96 % 04/23/2024 09:02 PM Oxygen Saturation (09901-4) 95 % 04/23/2024 07:28 AM Temperature (8310-5) 98.3 [degF] Oxygen Saturation (59662-2) 97 % Respiratory Rate (9279-1) 22 /min Heart Rate (8867-4) 123 /min Blood Pressure Systolic (8480-6) 125 mm[Hg] Blood Pressure Diastolic (8462-4) 72 mm[Hg] 04/24/2024 09:52 AM Temperature (8310-5) 98.2 [degF] Oxygen Saturation (09712-5) 94 % Respiratory Rate (9279-1) 20 /min Heart Rate (8867-4) 98 /min Blood Pressure Systolic (8480-6) 127 mm[Hg] Blood Pressure Diastolic (8462-4) 74 mm[Hg] 04/24/2024 09:50 AM Oxygen Saturation (36509-5) 94 % 04/25/2024 09:36 AM Temperature (8310-5) 98.2 [degF] Oxygen Saturation (04309-7) 95 % Respiratory Rate (9279-1) 20 /min Heart Rate (8867-4) 105 /min Blood Pressure Systolic (8480-6) 108 mm[Hg] Blood Pressure Diastolic (8462-4) 61 mm[Hg] 04/24/2024 06:36 PM Oxygen Saturation (59551-5) 96 % 04/26/2024 10:50 AM Temperature (8310-5) 97.9 [degF] Oxygen Saturation (55668-2) 92 % Respiratory Rate (9279-1) 20 /min Heart Rate (8867-4) 84 /min Blood Pressure Systolic (8480-6) 107 mm[Hg] Blood Pressure Diastolic (8462-4) 61 mm[Hg] 04/25/2024 07:14 PM Oxygen Saturation (27133-3) 95 % 04/26/2024 10:43 PM Oxygen Saturation (27197-7) 95 % 04/27/2024 10:35 PM Oxygen Saturation (66355-6) 96 % 04/27/2024 06:53 AM Temperature (8310-5) 98 [degF] Oxygen Saturation (00460-3) 96 % Respiratory Rate (9279-1) 18 /min Heart Rate (8867-4) 90 /min Blood Pressure Systolic (8480-6) 117 mm[Hg] Blood Pressure Diastolic (8462-4) 67 mm[Hg] 04/28/2024 07:03 AM Temperature (8310-5) 97.6 [degF] Respiratory Rate (9279-1) 19 /min Heart Rate (8867-4) 85 /min Blood Pressure Systolic (8480-6) 122 mm[Hg] Blood Pressure Diastolic (8462-4) 60 mm[Hg] 04/28/2024 07:02 AM Oxygen Saturation (31942-3) 95 % 04/29/2024 06:53 AM Temperature (8310-5) 98 [degF] Respiratory Rate (9279-1) 20 /min Heart Rate (8867-4) 92 /min Blood Pressure Systolic (8480-6) 130 mm[Hg] Blood Pressure Diastolic (8462-4) 66 mm[Hg] 04/29/2024 06:52 AM Oxygen Saturation (70471-7) 98 % 04/28/2024 09:31 PM Oxygen Saturation (24614-9) 97 % 04/29/2024 10:23 PM Oxygen Saturation (15171-5) 97 % 04/30/2024 06:52 AM Temperature (8310-5) 98.5 [degF] Oxygen Saturation (60044-7) 95 % Respiratory Rate (9279-1) 18 /min Heart Rate (8867-4) 99 /min Blood Pressure Systolic (8480-6) 126 mm[Hg] Blood Pressure Diastolic (8462-4) 63 mm[Hg] 05/01/2024 09:20 AM Temperature (8310-5) 97.1 [degF] Oxygen Saturation (86934-9) 93 % Respiratory Rate (9279-1) 18 /min Heart Rate (8867-4) 97 /min Blood Pressure Systolic (8480-6) 97 mm[Hg] Blood Pressure Diastolic (8462-4) 62 mm[Hg] 04/30/2024 11:47 PM Oxygen Saturation (97084-1) 98 % 05/02/2024 06:28 PM Oxygen Saturation (86726-4) 97 % 05/02/2024 06:58 AM Temperature (8310-5) 98 [degF] Oxygen Saturation (86132-2) 96 % Respiratory Rate (9279-1) 19 /min Heart Rate (8867-4) 87 /min Blood Pressure Systolic (8480-6) 112 mm[Hg] Blood Pressure Diastolic (8462-4) 68 mm[Hg] 05/01/2024 07:42 PM Oxygen Saturation (94926-0) 94 % 05/03/2024 07:14 AM Body Weight (09052-8) 275.4 [lb_av ] Body Mass Index (03582-5) 37.35 kg/m2 05/03/2024 07:13 AM Temperature (8310-5) 98.3 [degF] Oxygen Saturation (81495-1) 96 % Respiratory Rate (9279-1) 17 /min Heart Rate (8867-4) 105 /min Blood Pressure Systolic (8480-6) 110 mm[Hg] Blood Pressure Diastolic (8462-4) 68 mm[Hg] 05/04/2024 01:47 PM Body Weight (48153-8) 275.3 [lb_av ] Body Mass Index (77744-3) 37.33 kg/m2 05/04/2024 06:44 AM Oxygen Saturation (63059-1) 96 % 05/03/2024 08:09 PM Oxygen Saturation (37382-0) 94 % 05/05/2024 01:06 AM Oxygen Saturation (88350-6) 98 % 05/05/2024 08:18 AM Oxygen Saturation (91769-3) 96 % 05/05/2024 02:27 PM Body Weight (62710-2) 274.8 [lb_av ] Body Mass Index (66986-0) 37.27 kg/m2 05/06/2024 01:58 PM Body Weight (51885-7) 284.8 [lb_av ] Body Mass Index (82064-3) 38.62 kg/m2 05/06/2024 07:27 AM Oxygen Saturation (70107-2) 98 % 05/05/2024 10:07 PM Oxygen Saturation (68598-6) 96 % 05/06/2024 09:02 PM Oxygen Saturation (62091-5) 96 % 05/07/2024 08:01 PM Oxygen Saturation (46935-8) 95 % 05/07/2024 08:37 AM Oxygen Saturation (59223-3) 97 % 05/08/2024 08:47 AM Oxygen Saturation (24579-7) 94 % 05/09/2024 06:24 PM Oxygen Saturation (16353-1) 99 % 05/08/2024 07:26 PM Oxygen Saturation (93401-6) 96 % 05/09/2024 07:52 AM Oxygen Saturation (52677-5) 97 % 05/09/2024 08:12 PM Oxygen Saturation (67337-6) 99 % 05/10/2024 09:49 AM Temperature (8310-5) 98.1 [degF] Oxygen Saturation (41549-1) 97 % Respiratory Rate (9279-1) 22 /min Heart Rate (8867-4) 95 /min Blood Pressure Systolic (8480-6) 122 mm[Hg] Blood Pressure Diastolic (8462-4) 67 mm[Hg] 05/11/2024 06:37 AM Oxygen Saturation (32459-6) 95 % 05/10/2024 08:00 PM Oxygen Saturation (95439-8) 96 % 05/12/2024 07:07 AM Oxygen Saturation (79418-7) 96 % 05/12/2024 03:14 PM Body Weight (78430-1) 290.6 [lb_av ] Body Mass Index (91025-7) 39.41 kg/m2 05/11/2024 09:28 PM Oxygen Saturation (94500-4) 96 % 05/13/2024 01:37 PM Body Weight (66346-2) 289.4 [lb_av ] Body Mass Index (33162-6) 39.25 kg/m2 05/12/2024 10:09 PM Oxygen Saturation (27688-2) 95 % 05/13/2024 06:35 AM Oxygen Saturation (46508-9) 97 % 05/12/2024 10:08 PM Oxygen Saturation (42583-6) 96 % 05/13/2024 10:08 PM Oxygen Saturation (87873-6) 95 % 05/14/2024 06:26 AM Oxygen Saturation (38942-4) 97 % 05/15/2024 09:23 AM Oxygen Saturation (65629-6) 97 % 05/15/2024 05:24 AM Oxygen Saturation (77240-4) 96 % 05/16/2024 07:06 AM Oxygen Saturation (67870-6) 95 % 05/15/2024 11:04 PM Oxygen Saturation (55967-9) 97 % 05/17/2024 07:20 AM Temperature (8310-5) 98.1 [degF] Respiratory Rate (9279-1) 18 /min Heart Rate (8867-4) 94 /min Blood Pressure Systolic (8480-6) 122 mm[Hg] Blood Pressure Diastolic (8462-4) 62 mm[Hg] 05/17/2024 07:19 AM Oxygen Saturation (11452-6) 97 % 05/16/2024 08:47 PM Oxygen Saturation (95004-5) 93 % 05/17/2024 09:06 PM Oxygen Saturation (34572-3) 95 % 05/18/2024 06:51 AM Oxygen Saturation (60601-1) 96 % 05/19/2024 05:37 PM Oxygen Saturation (69117-0) 96 % 05/19/2024 07:13 AM Oxygen Saturation (12565-2) 94 % 05/18/2024 06:19 PM Oxygen Saturation (77189-1) 97 % 05/20/2024 08:10 PM Oxygen Saturation (96329-5) 98 % 05/20/2024 07:51 AM Oxygen Saturation (96210-7) 96 % 05/21/2024 08:12 AM Oxygen Saturation (00016-8) 94 % 05/21/2024 08:01 PM Oxygen Saturation (43501-2) 98 % 05/22/2024 08:11 PM Oxygen Saturation (90054-8) 96 % 05/22/2024 09:25 AM Oxygen Saturation (00599-7) 96 % 05/23/2024 08:48 AM Oxygen Saturation (58239-9) 96 % 05/24/2024 12:27 PM Temperature (8310-5) 98.2 [degF] Respiratory Rate (9279-1) 18 /min Heart Rate (8867-4) 90 /min Blood Pressure Systolic (8480-6) 128 mm[Hg] Blood Pressure Diastolic (8462-4) 66 mm[Hg] 05/24/2024 12:26 PM Oxygen Saturation (88083-1) 98 % 05/23/2024 10:45 PM Oxygen Saturation (60121-7) 99 % 05/25/2024 07:26 AM Oxygen Saturation (46457-2) 94 % 05/24/2024 08:08 PM Oxygen Saturation (45839-2) 96 % 05/25/2024 08:53 PM Oxygen Saturation (05352-6) 95 % 05/26/2024 06:57 AM Oxygen Saturation (15007-1) 96 % 02/24/2024 10:04 PM Body Height (8302-2) 72 [in_us] 05/26/2024 09:04 PM Oxygen Saturation (28525-0) 95 % 05/27/2024 07:00 AM Oxygen Saturation (84385-7) 97 % 05/27/2024 09:23 PM Oxygen Saturation (47412-1) 95 % 05/28/2024 10:04 PM Oxygen Saturation (26918-1) 95 % 05/28/2024 06:49 AM Oxygen Saturation (46173-3) 97 % 05/29/2024 09:30 AM Oxygen Saturation (94405-1) 93 % 05/30/2024 06:50 AM Oxygen Saturation (29303-6) 94 % 05/29/2024 08:55 PM Temperature (8310-5) 98.1 [degF] Oxygen Saturation (17848-5) 93 % Respiratory Rate (9279-1) 22 /min Heart Rate (8867-4) 121 /min Blood Pressure Systolic (8480-6) 123 mm[Hg] Blood Pressure Diastolic (8462-4) 79 mm[Hg] 05/30/2024 08:51 PM Oxygen Saturation (34240-6) 95 % 05/31/2024 07:48 AM Temperature (8310-5) 97.3 [degF] Oxygen Saturation (96266-5) 92 % Respiratory Rate (9279-1) 18 /min Heart Rate (8867-4) 120 /min Blood Pressure Systolic (8480-6) 120 mm[Hg] Blood Pressure Diastolic (8462-4) 77 mm[Hg] 06/01/2024 07:09 AM Oxygen Saturation (30479-2) 97 % 05/31/2024 10:45 PM Oxygen Saturation (73099-2) 98 % 06/02/2024 09:04 AM Oxygen Saturation (54640-6) 94 % 06/03/2024 08:53 AM Oxygen Saturation (88237-1) 98 % 06/02/2024 08:58 PM Oxygen Saturation (85031-4) 95 % 06/03/2024 10:21 AM Body Weight (68371-1) 288.8 [lb_av ] Body Mass Index (91885-5) 39.16 kg/m2 06/03/2024 11:11 PM Oxygen Saturation (36686-4) 95 % 06/04/2024 09:57 AM Oxygen Saturation (81460-0) 92 % 06/04/2024 10:07 PM Oxygen Saturation (00409-5) 95 % 06/05/2024 03:09 PM Body Weight (93727-6) 291.4 [lb_av ] Body Mass Index (35634-4) 39.52 kg/m2 06/05/2024 10:20 PM Oxygen Saturation (66947-8) 96 % 06/05/2024 08:54 AM Oxygen Saturation (63763-1) 92 % 06/06/2024 02:44 PM Body Weight (76091-5) 287.8 [lb_av ] Body Mass Index (97891-3) 39.03 kg/m2 06/06/2024 10:45 AM Oxygen Saturation (05053-6) 94 % 06/07/2024 02:30 PM Temperature (8310-5) 97.6 [degF] Oxygen Saturation (34983-8) 91 % Respiratory Rate (9279-1) 21 /min Heart Rate (8867-4) 86 /min Blood Pressure Systolic (8480-6) 113 mm[Hg] Blood Pressure Diastolic (8462-4) 50 mm[Hg] 06/07/2024 02:47 PM Body Weight (67395-9) 287.2 [lb_av ] Body Mass Index (13172-9) 38.95 kg/m2 06/07/2024 02:29 PM Oxygen Saturation (07434-9) 91 % 06/06/2024 08:13 PM Oxygen Saturation (84266-5) 93 % 06/08/2024 07:14 AM Oxygen Saturation (54461-3) 95 % 06/07/2024 09:07 PM Oxygen Saturation (39601-3) 96 % 06/09/2024 06:51 AM Oxygen Saturation (05957-4) 97 % 06/08/2024 08:32 PM Oxygen Saturation (70889-2) 95 % 06/10/2024 06:55 AM Oxygen Saturation (56963-2) 97 % 06/09/2024 08:20 PM Oxygen Saturation (01450-7) 96 % 06/10/2024 07:53 PM Oxygen Saturation (81310-6) 95 % 06/11/2024 06:41 PM Oxygen Saturation (06856-3) 96 % 06/11/2024 08:07 AM Oxygen Saturation (92831-1) 90 % 06/12/2024 03:29 PM Body Weight (74627-4) 282.4 [lb_av ] Body Mass Index (96323-7) 38.3 kg/m2 06/12/2024 07:39 AM Oxygen Saturation (00234-7) 93 % 06/12/2024 09:03 PM Oxygen Saturation (92337-6) 98 % 06/13/2024 07:28 PM Oxygen Saturation (14769-9) 93 % 06/13/2024 03:10 PM Body Weight (48883-1) 282.3 [lb_av ] Body Mass Index (77354-1) 38.28 kg/m2 06/13/2024 07:19 AM Oxygen Saturation (24191-3) 97 % 06/14/2024 07:44 PM Oxygen Saturation (00062-9) 94 % 06/14/2024 01:50 PM Body Weight (36122-4) 277.6 [lb_av ] Body Mass Index (31526-1) 37.65 kg/m2 06/14/2024 08:58 AM Temperature (8310-5) 99.9 [degF] Oxygen Saturation (29720-7) 92 % Respiratory Rate (9279-1) 18 /min Heart Rate (8867-4) 120 /min Blood Pressure Systolic (8480-6) 160 mm[Hg] Blood Pressure Diastolic (8462-4) 65 mm[Hg] 06/15/2024 12:25 PM Body Weight (18264-0) 280 [lb_av] Body Mass Index (61144-4) 37.97 kg/m2 06/15/2024 07:10 AM Oxygen Saturation (73736-0) 96 % 06/16/2024 01:51 PM Body Weight (94229-2) 276.2 [lb_av ] Body Mass Index (44930-9) 37.46 kg/m2 06/16/2024 09:17 AM Oxygen Saturation (93902-9) 94 % 06/16/2024 11:32 PM Oxygen Saturation (45738-9) 95 % 06/17/2024 09:52 PM Oxygen Saturation (26414-6) 95 % 06/17/2024 02:56 PM Body Weight (62329-0) 274.8 [lb_av ] Body Mass Index (83310-2) 37.27 kg/m2 06/17/2024 09:37 AM Oxygen Saturation (80003-8) 92 % 06/17/2024 09:36 AM Oxygen Saturation (75731-1) 92 % 06/18/2024 01:17 PM Body Weight (31994-7) 272.4 [lb_av ] Body Mass Index (35039-6) 36.94 kg/m2 06/18/2024 07:20 AM Oxygen Saturation (53643-6) 96 % 06/18/2024 07:19 AM Oxygen Saturation (32602-5) 96 % 06/19/2024 02:28 AM Oxygen Saturation (73828-1) 95 % 06/19/2024 09:27 PM Oxygen Saturation (09700-6) 92 % 06/19/2024 02:25 PM Oxygen Saturation (66017-2) 94 % Body Weight (44789-2) 274.2 [lb_av] Body Mass Index (88888-5) 37.18 kg/m2 06/20/2024 09:57 AM Oxygen Saturation (74856-3) 92 % 06/21/2024 01:31 PM Body Weight (82054-2) 270.4 [lb_av ] Body Mass Index (56567-3) 36.67 kg/m2 06/21/2024 05:56 AM Temperature (8310-5) 97.1 [degF] Respiratory Rate (9279-1) 18 /min Heart Rate (8867-4) 94 /min Blood Pressure Systolic (8480-6) 116 mm[Hg] Blood Pressure Diastolic (8462-4) 80 mm[Hg] 06/21/2024 05:55 AM Oxygen Saturation (73788-9) 96 % 06/20/2024 06:43 PM Oxygen Saturation (19046-4) 96 % 06/20/2024 04:12 PM Body Weight (81064-4) 277 [lb_av] Body Mass Index (11148-0) 37.56 kg/m2 06/22/2024 12:33 PM Body Weight (04809-6) 273 [lb_av] Body Mass Index (42412-2) 37.02 kg/m2 06/22/2024 07:22 AM Oxygen Saturation (67962-3) 94 % 06/21/2024 08:28 PM Oxygen Saturation (81674-5) 92 % 06/23/2024 10:05 AM Body Weight (26071-7) 267.8 [lb_av ] Body Mass Index (56468-1) 36.32 kg/m2 06/23/2024 06:29 AM Oxygen Saturation (81310-2) 96 % 06/22/2024 09:03 PM Oxygen Saturation (46349-3) 95 % 06/22/2024 08:51 PM Oxygen Saturation (49252-6) 95 % 06/23/2024 11:20 PM Oxygen Saturation (18557-7) 95 % 06/24/2024 04:34 PM Body Weight (43729-6) 267.6 [lb_av ] Body Mass Index (60144-6) 36.29 kg/m2 06/24/2024 06:59 AM Oxygen Saturation (06014-9) 96 % 06/25/2024 06:43 AM Oxygen Saturation (30343-7) 94 % 06/25/2024 12:19 AM Oxygen Saturation (58577-3) 95 % 06/25/2024 03:18 PM Body Weight (99805-8) 268 [lb_av] Body Mass Index (55537-7) 36.34 kg/m2 06/26/2024 03:33 PM Body Weight (09884-1) 268 [lb_av] Body Mass Index (36063-6) 36.34 kg/m2 06/26/2024 01:24 PM Oxygen Saturation (35437-7) 93 % 06/27/2024 02:06 PM Body Weight (50337-2) 266.8 [lb_av ] Body Mass Index (76905-7) 36.18 kg/m2 06/27/2024 07:00 AM Oxygen Saturation (37852-4) 93 % 06/27/2024 12:38 AM Oxygen Saturation (43769-2) 90 % 06/27/2024 07:18 PM Oxygen Saturation (03256-5) 93 % 06/28/2024 09:04 PM Oxygen Saturation (25374-8) 94 % 06/28/2024 02:50 PM Body Weight (31903-1) 271 [lb_av] Body Mass Index (49058-3) 36.75 kg/m2 06/28/2024 06:56 AM Temperature (8310-5) 97.1 [degF] Respiratory Rate (9279-1) 18 /min Heart Rate (8867-4) 79 /min Blood Pressure Systolic (8480-6) 117 mm[Hg] Blood Pressure Diastolic (8462-4) 52 mm[Hg] 06/28/2024 06:54 AM Oxygen Saturation (52099-1) 94 % 06/29/2024 06:51 AM Oxygen Saturation (50595-8) 95 % 06/29/2024 08:05 PM Oxygen Saturation (63025-8) 98 % 06/30/2024 11:08 AM Body Weight (43540-6) 271.2 [lb_av ] Body Mass Index (93377-9) 36.78 kg/m2 06/30/2024 07:22 AM Oxygen Saturation (72402-7) 97 % 07/01/2024 09:54 AM Oxygen Saturation (22519-0) 93 % 07/01/2024 09:36 AM Oxygen Saturation (44476-4) 93 % 07/01/2024 12:13 AM Oxygen Saturation (75458-9) 95 % 07/02/2024 09:15 AM Oxygen Saturation (96526-3) 95 % 07/01/2024 09:49 PM Oxygen Saturation (90046-0) 95 % 07/01/2024 10:11 AM Body Weight (63977-5) 271.2 [lb_av ] Body Mass Index (82901-8) 36.78 kg/m2 07/02/2024 09:35 PM Oxygen Saturation (21651-0) 95 % 07/02/2024 04:13 PM Body Weight (05279-9) 272.8 [lb_av ] Body Mass Index (40163-8) 36.99 kg/m2 07/03/2024 06:52 PM Oxygen Saturation (94266-4) 97 % 07/03/2024 12:48 PM Oxygen Saturation (25985-0) 94 % 07/04/2024 09:25 AM Oxygen Saturation (85550-2) 95 % 07/05/2024 11:09 AM Temperature (8310-5) 98.2 [degF] Oxygen Saturation (48139-7) 94 % Respiratory Rate (9279-1) 20 /min Heart Rate (8867-4) 109 /min Blood Pressure Systolic (8480-6) 124 mm[Hg] Blood Pressure Diastolic (8462-4) 70 mm[Hg] 07/05/2024 11:08 AM Oxygen Saturation (71022-3) 94 % 07/04/2024 08:02 PM Oxygen Saturation (06963-0) 97 % 07/06/2024 03:22 PM Body Weight (85413-0) 275.6 [lb_av ] Body Mass Index (21650-4) 37.37 kg/m2 07/06/2024 07:11 AM Oxygen Saturation (93138-3) 96 % 07/06/2024 12:42 AM Oxygen Saturation (43709-8) 97 % 07/05/2024 04:23 PM Body Weight (41257-3) 272 [lb_av] Body Mass Index (24478-9) 36.89 kg/m2 07/07/2024 01:57 PM Body Weight (40212-5) 276 [lb_av] Body Mass Index (41778-3) 37.43 kg/m2 07/07/2024 07:20 AM Oxygen Saturation (42262-4) 97 % 07/06/2024 11:55 PM Oxygen Saturation (71021-6) 95 % 07/07/2024 09:15 PM Oxygen Saturation (58702-9) 95 % 07/08/2024 09:40 PM Oxygen Saturation (44008-6) 98 % 07/08/2024 04:53 PM Body Weight (06805-3) 275.2 [lb_av ] Body Mass Index (86112-8) 37.32 kg/m2 07/08/2024 07:01 AM Oxygen Saturation (87745-8) 96 % 07/09/2024 07:11 AM Oxygen Saturation (20104-5) 95 % 07/09/2024 10:11 PM Oxygen Saturation (16498-4) 95 % 07/10/2024 08:25 PM Oxygen Saturation (49315-1) 95 % 07/10/2024 02:53 PM Body Weight (61431-7) 267.2 [lb_av ] Body Mass Index (41080-2) 36.23 kg/m2 07/10/2024 06:53 AM Oxygen Saturation (71780-7) 97 % 07/10/2024 06:51 AM Oxygen Saturation (26064-7) 97 % 07/11/2024 10:54 AM Body Weight (73434-4) 267.3 [lb_av ] Body Mass Index (58812-4) 36.25 kg/m2 07/11/2024 07:16 AM Oxygen Saturation (16681-6) 96 % 07/11/2024 06:23 PM Oxygen Saturation (23817-0) 93 % 07/12/2024 08:23 AM Temperature (8310-5) 97 [degF] Respiratory Rate (9279-1) 18 /min Heart Rate (8867-4) 100 /min Blood Pressure Systolic (8480-6) 120 mm[Hg] Blood Pressure Diastolic (8462-4) 70 mm[Hg] 07/12/2024 08:22 AM Oxygen Saturation (79077-9) 97 % 07/12/2024 02:03 PM Body Weight (18177-7) 276 [lb_av] Body Mass Index (26887-9) 37.43 kg/m2 07/12/2024 10:12 PM Oxygen Saturation (70224-1) 96 % 07/13/2024 07:02 AM Oxygen Saturation (89169-5) 97 % 07/13/2024 04:17 PM Body Weight (99781-8) 276.5 [lb_av ] Body Mass Index (19208-9) 37.5 kg/m2 07/13/2024 08:03 PM Oxygen Saturation (12264-3) 96 % 07/14/2024 08:28 AM Oxygen Saturation (69042-2) 98 % 07/14/2024 11:43 AM Body Weight (58939-4) 275.4 [lb_av ] Body Mass Index (19872-1) 37.35 kg/m2 07/15/2024 08:56 AM Oxygen Saturation (02245-2) 98 % 07/15/2024 01:45 AM Oxygen Saturation (57012-6) 95 % 07/15/2024 09:42 AM Body Weight (34193-9) 276.4 [lb_av ] Body Mass Index (55840-3) 37.48 kg/m2 07/15/2024 08:43 PM Oxygen Saturation (17529-2) 95 % 07/16/2024 08:45 AM Oxygen Saturation (48530-7) 98 % 07/16/2024 02:39 PM Body Weight (90959-4) 276.1 [lb_av ] Body Mass Index (65250-9) 37.44 kg/m2 07/16/2024 07:52 PM Oxygen Saturation (14168-4) 95 % 07/17/2024 02:33 PM Body Weight (97688-4) 276.2 [lb_av ] Body Mass Index (78485-8) 37.46 kg/m2 07/17/2024 10:38 AM Oxygen Saturation (91237-3) 94 % 07/17/2024 08:26 PM Oxygen Saturation (84937-2) 95 % 07/18/2024 08:47 AM Oxygen Saturation (87711-8) 98 % 07/18/2024 03:52 PM Body Weight (59135-1) 276.6 [lb_av ] Body Mass Index (47640-7) 37.51 kg/m2 07/19/2024 08:57 AM Temperature (8310-5) 98.1 [degF] Oxygen Saturation (82511-9) 95 % Respiratory Rate (9279-1) 18 /min Heart Rate (8867-4) 117 /min Blood Pressure Systolic (8480-6) 127 mm[Hg] Blood Pressure Diastolic (8462-4) 79 mm[Hg] 07/19/2024 08:56 AM Oxygen Saturation (52874-9) 95 % 07/18/2024 09:36 PM Oxygen Saturation (20519-3) 96 % 07/19/2024 04:11 PM Body Weight (06128-5) 277 [lb_av] Body Mass Index (63630-0) 37.56 kg/m2 07/19/2024 07:33 PM Oxygen Saturation (76853-5) 92 % 07/20/2024 06:57 AM Oxygen Saturation (31121-1) 94 % 07/20/2024 04:26 PM Body Weight (76512-9) 278 [lb_av] Body Mass Index (66241-5) 37.7 kg/m2 07/20/2024 08:54 PM Oxygen Saturation (37469-5) 95 % 07/20/2024 09:07 PM Oxygen Saturation (22299-2) 95 % 07/21/2024 07:01 AM Oxygen Saturation (61631-3) 96 % 07/21/2024 10:19 AM Body Weight (75125-6) 278.5 [lb_av ] Body Mass Index (04968-0) 37.77 kg/m2 07/21/2024 08:45 PM Oxygen Saturation (30733-2) 95 % 07/22/2024 07:28 AM Oxygen Saturation (62903-6) 96 % 07/22/2024 08:03 PM Oxygen Saturation (05390-7) 96 % 07/23/2024 08:17 AM Oxygen Saturation (49753-8) 93 % 07/23/2024 02:44 PM Body Weight (11791-7) 278 [lb_av] Body Mass Index (81141-7) 37.7 kg/m2 07/23/2024 08:20 PM Oxygen Saturation (27463-5) 95 % 2024 07:20 AM Oxygen Saturation (87714-7) 95 % 2024 07:18 AM Oxygen Saturation (97301-9) 95 % 2024 07:12 PM Oxygen Saturation (02951-0) 91 % 07/25/2024 07:32 AM Oxygen Saturation (70417-2) 92 % 07/25/2024 07:49 PM Oxygen Saturation (71998-1) 93 % 07/26/2024 07:45 AM Temperature (8310-5) 98.4 [degF] Oxygen Saturation (17321-6) 92 % Respiratory Rate (9279-1) 19 /min Heart Rate (8867-4) 117 /min Blood Pressure Systolic (8480-6) 146 mm[Hg] Blood Pressure Diastolic (8462-4) 74 mm[Hg] 07/27/2024 12:29 AM Oxygen Saturation (74916-8) 94 % 07/27/2024 07:51 AM Oxygen Saturation (35759-9) 95 % 07/27/2024 08:21 PM Oxygen Saturation (08109-8) 93 % 07/28/2024 07:20 AM Oxygen Saturation (78470-6) 97 % 07/28/2024 09:37 PM Oxygen Saturation (68587-9) 96 % 07/29/2024 02:06 PM Oxygen Saturation (49012-1) 91 % 07/29/2024 08:41 PM Oxygen Saturation (01011-7) 98 % 07/30/2024 10:32 AM Oxygen Saturation (66148-7) 92 % 07/30/2024 07:47 PM Oxygen Saturation (04274-3) 95 % 07/31/2024 09:09 AM Oxygen Saturation (06030-4) 96 % 07/31/2024 03:39 PM Body Weight (30438-8) 270.8 [lb_av ] Body Mass Index (14925-9) 36.72 kg/m2 07/31/2024 07:05 PM Oxygen Saturation (19646-1) 95 % 08/01/2024 07:02 AM Oxygen Saturation (99573-1) 96 % 08/01/2024 11:33 AM Body Weight (71630-6) 273.2 [lb_av ] Body Mass Index (04409-2) 37.05 kg/m2 08/02/2024 12:31 AM Oxygen Saturation (03367-6) 96 % 08/02/2024 09:52 AM Body Weight (29434-9) 273 [lb_av] Body Mass Index (81375-0) 37.02 kg/m2 08/02/2024 10:06 AM Temperature (8310-5) 98.4 [degF] Oxygen Saturation (14089-9) 92 % Respiratory Rate (9279-1) 19 /min Heart Rate (8867-4) 110 /min Blood Pressure Systolic (8480-6) 111 mm[Hg] Blood Pressure Diastolic (8462-4) 63 mm[Hg] 08/02/2024 11:32 PM Oxygen Saturation (35145-1) 90 % 08/03/2024 07:40 AM Oxygen Saturation (37522-3) 93 % 08/04/2024 12:43 AM Oxygen Saturation (21504-3) 97 % 08/04/2024 09:50 AM Body Weight (21085-6) 270 [lb_av] Body Mass Index (56901-1) 36.61 kg/m2 08/04/2024 07:25 AM Oxygen Saturation (07239-7) 95 % 08/04/2024 11:54 PM Oxygen Saturation (69941-1) 95 % 08/05/2024 12:04 AM Oxygen Saturation (63389-9) 95 % 08/05/2024 06:47 AM Oxygen Saturation (15771-2) 96 % 08/05/2024 03:09 PM Body Weight (74382-9) 271 [lb_av] Body Mass Index (88781-4) 36.75 kg/m2 08/05/2024 09:52 PM Oxygen Saturation (82134-5) 95 % 08/06/2024 07:38 AM Oxygen Saturation (04758-1) 96 % 08/06/2024 08:33 PM Oxygen Saturation (79120-0) 95 % 08/07/2024 10:43 PM Oxygen Saturation (15689-4) 92 % 08/07/2024 06:33 PM Oxygen Saturation (46805-7) 95 % 08/08/2024 07:13 AM Oxygen Saturation (63792-4) 94 % 08/08/2024 10:14 PM Oxygen Saturation (70185-8) 93 % 08/09/2024 07:32 AM Temperature (8310-5) 98.4 [degF] Respiratory Rate (9279-1) 19 /min Heart Rate (8867-4) 103 /min Blood Pressure Systolic (8480-6) 130 mm[Hg] Blood Pressure Diastolic (8462-4) 70 mm[Hg] 08/09/2024 07:31 AM Oxygen Saturation (69033-2) 93 % 08/09/2024 03:06 PM Body Weight (65454-0) 271.5 [lb_av ] Body Mass Index (23483-6) 36.82 kg/m2 08/09/2024 08:52 PM Oxygen Saturation (49746-8) 91 % 08/10/2024 07:00 AM Oxygen Saturation (78064-5) 93 % 08/10/2024 08:44 PM Oxygen Saturation (54938-1) 95 % 08/11/2024 05:59 PM Body Weight (72750-1) 266.6 [lb_av ] Body Mass Index (10589-3) 36.15 kg/m2 08/11/2024 11:26 PM Oxygen Saturation (14757-1) 95 % 08/12/2024 07:44 AM Oxygen Saturation (14171-2) 92 % 08/12/2024 04:47 PM Body Weight (36708-2) 269.6 [lb_av ] Body Mass Index (02771-4) 36.56 kg/m2 08/12/2024 09:59 PM Oxygen Saturation (90126-9) 95 % 08/13/2024 07:55 AM Oxygen Saturation (73179-2) 100 % 08/13/2024 05:19 PM Body Weight (98975-5) 265.6 [lb_av ] Body Mass Index (13335-5) 36.02 kg/m2 08/14/2024 02:27 PM Body Weight (97497-1) 270.4 [lb_av ] Body Mass Index (51829-6) 36.67 kg/m2 08/14/2024 11:29 AM Oxygen Saturation (69616-8) 93 % 08/14/2024 11:28 AM Oxygen Saturation (17423-9) 93 % 08/14/2024 11:45 PM Oxygen Saturation (50585-1) 95 % 08/15/2024 10:31 AM Body Weight (02831-2) 266.2 [lb_av ] Body Mass Index (14573-7) 36.1 kg/m2 08/15/2024 10:17 AM Oxygen Saturation (68729-0) 96 % 08/16/2024 02:52 AM Oxygen Saturation (95900-3) 96 % 08/16/2024 12:52 PM Temperature (8310-5) 98.1 [degF] Oxygen Saturation (92220-3) 97 % Respiratory Rate (9279-1) 19 /min Heart Rate (8867-4) 124 /min Blood Pressure Systolic (8480-6) 122 mm[Hg] Blood Pressure Diastolic (8462-4) 78 mm[Hg] 08/16/2024 11:46 AM Body Weight (42912-0) 270 [lb_av] Body Mass Index (46321-6) 36.61 kg/m2 08/16/2024 11:02 PM Oxygen Saturation (08560-2) 91 % 08/17/2024 07:09 AM Oxygen Saturation (59694-2) 92 % 08/17/2024 04:24 PM Body Weight (86955-9) 271 [lb_av] Body Mass Index (85281-9) 36.75 kg/m2 08/17/2024 09:57 PM Oxygen Saturation (44720-7) 95 % 08/18/2024 07:05 AM Oxygen Saturation (26755-6) 96 % 08/18/2024 04:35 PM Body Weight (01270-0) 271.3 [lb_av ] Body Mass Index (68068-7) 36.79 kg/m2 08/18/2024 09:12 PM Oxygen Saturation (52567-9) 96 % 08/19/2024 04:19 PM Body Weight (73857-7) 271 [lb_av] Body Mass Index (96828-4) 36.75 kg/m2 08/19/2024 09:25 AM Oxygen Saturation (66849-0) 97 % 08/19/2024 09:03 PM Oxygen Saturation (43952-9) 95 % 08/20/2024 09:18 AM Oxygen Saturation (34351-7) 96 % 08/20/2024 03:10 PM Body Weight (82772-9) 271.5 [lb_av ] Body Mass Index (53862-8) 36.82 kg/m2 08/21/2024 09:39 AM Oxygen Saturation (68821-4) 96 % 08/21/2024 08:01 PM Oxygen Saturation (58682-7) 92 % 08/22/2024 07:27 AM Oxygen Saturation (41746-4) 94 % 08/22/2024 08:01 PM Oxygen Saturation (19341-4) 94 % 08/23/2024 07:25 AM Temperature (8310-5) 97.6 [degF] Respiratory Rate (9279-1) 18 /min Heart Rate (8867-4) 120 /min Blood Pressure Systolic (8480-6) 172 mm[Hg] Blood Pressure Diastolic (8462-4) 87 mm[Hg] 08/23/2024 07:24 AM Oxygen Saturation (89483-8) 96 % 08/23/2024 04:37 PM Body Weight (85121-2) 272 [lb_av] Body Mass Index (86487-3) 36.89 kg/m2 08/23/2024 09:59 PM Oxygen Saturation (62122-6) 98 % 08/24/2024 07:05 AM Oxygen Saturation (73821-9) 97 % 08/24/2024 11:31 AM Body Weight (82494-1) 266.4 [lb_av ] Body Mass Index (79936-4) 36.13 kg/m2 08/25/2024 03:24 AM Oxygen Saturation (05635-5) 95 % 08/25/2024 12:10 PM Oxygen Saturation (97791-2) 93 % 08/25/2024 01:50 PM Body Weight (71097-7) 274.4 [lb_av ] Body Mass Index (31229-1) 37.21 kg/m2 08/25/2024 10:54 PM Oxygen Saturation (51229-9) 95 % 08/26/2024 07:50 AM Body Weight (40350-7) 274.5 [lb_av ] Body Mass Index (94026-0) 37.22 kg/m2 08/26/2024 11:31 AM Oxygen Saturation (77259-3) 97 % 08/26/2024 10:24 PM Oxygen Saturation (70505-5) 95 % 08/27/2024 09:58 AM Oxygen Saturation (79839-0) 98 % 08/27/2024 11:46 AM Body Weight (86178-5) 273.4 [lb_av ] Body Mass Index (63761-6) 37.08 kg/m2 08/27/2024 09:39 PM Oxygen Saturation (67395-6) 95 % 08/28/2024 08:32 AM Oxygen Saturation (43909-8) 97 % 08/28/2024 10:01 AM Oxygen Saturation (43882-6) 97 % 08/28/2024 03:22 PM Body Weight (99155-3) 263.8 [lb_av ] Body Mass Index (17990-6) 35.77 kg/m2 08/29/2024 01:23 AM Oxygen Saturation (82938-3) 97 % 08/29/2024 03:42 PM Oxygen Saturation (81241-6) 97 % 08/29/2024 03:41 PM Oxygen Saturation (03485-6) 97 % Body Weight (61517-3) 275 [lb_av] Body Mass Index (40602-1) 37.29 kg/m2 08/30/2024 04:19 AM Oxygen Saturation (02830-2) 98 % Respiratory Rate (9279-1) 16 /min Heart Rate (8867-4) 115 /min Blood Pressure Systolic (8480-6) 144 mm[Hg] Blood Pressure Diastolic (8462-4) 83 mm[Hg] 08/30/2024 04:17 AM Temperature (8310-5) 97 [degF] 08/30/2024 05:52 AM Temperature (8310-5) 96.9 [degF] Oxygen Saturation (64657-8) 97 % Respiratory Rate (9279-1) 18 /min Heart Rate (8867-4) 105 /min Blood Pressure Systolic (8480-6) 127 mm[Hg] Blood Pressure Diastolic (8462-4) 84 mm[Hg] 08/30/2024 11:37 AM Body Weight (13502-7) 269.4 [lb_av ] Body Mass Index (29349-0) 36.53 kg/m2 08/30/2024 09:36 PM Oxygen Saturation (67109-2) 96 % 08/31/2024 06:59 AM Oxygen Saturation (94832-6) 97 % 08/31/2024 08:26 AM Body Weight (33972-5) 275.2 [lb_av ] Body Mass Index (02723-9) 37.32 kg/m2 08/31/2024 08:09 PM Oxygen Saturation (98441-2) 91 % 09/01/2024 06:55 AM Body Weight (47632-4) 273 [lb_av] Body Mass Index (00627-7) 37.02 kg/m2 09/01/2024 06:53 AM Oxygen Saturation (19720-0) 94 % 09/01/2024 11:08 PM Oxygen Saturation (14910-8) 92 % 09/02/2024 07:07 AM Oxygen Saturation (77813-4) 94 % 09/02/2024 01:53 PM Body Weight (17359-7) 270.6 [lb_av ] Body Mass Index (50597-8) 36.7 kg/m2 09/02/2024 09:51 PM Oxygen Saturation (46183-4) 96 % 09/03/2024 07:12 AM Oxygen Saturation (02911-3) 94 % 09/03/2024 09:46 AM Body Weight (08079-5) 274.4 [lb_av ] Body Mass Index (51413-9) 37.21 kg/m2 09/03/2024 07:17 PM Oxygen Saturation (32926-6) 95 % 09/04/2024 03:25 PM Body Weight (14271-6) 271.6 [lb_av ] Body Mass Index (35674-6) 36.83 kg/m2 09/04/2024 05:07 PM Oxygen Saturation (43890-3) 97 % 01/05/2025 07:09 AM Oxygen Saturation (79015-5) 96 % Body Weight (65826-7) 303 [lb_av] Body Mass Index (95338-2) 41.09 kg/m2 01/04/2025 07:22 AM Oxygen Saturation (60855-2) 99 % 12/12/2024 07:34 AM Body Weight (45228-2) 281 [lb_av] Body Mass Index (46792-8) 38.11 kg/m2 12/20/2024 12:48 PM Temperature (8310-5) 98 [degF] Respiratory Rate (9279-1) 16 /min Heart Rate (8867-4) 100 /min Blood Pressure Systolic (8480-6) 120 mm[Hg] Blood Pressure Diastolic (8462-4) 70 mm[Hg] Body Weight (52010-0) 274.4 [lb_av] Body Mass Index (62404-1) 37.21 kg/m2 01/02/2025 08:57 AM Oxygen Saturation (98889-9) 95 % 12/17/2024 06:40 AM Body Weight (45845-0) 298.6 [lb_av ] Body Mass Index (10164-1) 40.49 kg/m2 01/04/2025 08:42 PM Oxygen Saturation (85451-2) 95 % 12/25/2024 10:06 AM Body Weight (95741-2) 302 [lb_av] Body Mass Index (17564-3) 40.95 kg/m2 01/03/2025 11:42 AM Body Weight (47272-0) 295.6 [lb_av ] Body Mass Index (54706-5) 40.09 kg/m2 01/02/2025 11:27 PM Oxygen Saturation (83176-9) 98 % 12/24/2024 05:45 AM Body Weight (15787-6) 301.4 [lb_av ] Body Mass Index (95133-9) 40.87 kg/m2 12/29/2024 11:54 AM Body Weight (59505-8) 310 [lb_av] Body Mass Index (62154-4) 42.04 kg/m2 01/03/2025 02:44 PM Temperature (8310-5) 97.1 [degF] Respiratory Rate (9279-1) 20 /min Heart Rate (8867-4) 104 /min Blood Pressure Systolic (8480-6) 94 mm[Hg] Blood Pressure Diastolic (8462-4) 56 mm[Hg] 12/18/2024 09:12 AM Body Weight (84360-8) 288.2 [lb_av ] Body Mass Index (25505-8) 39.08 kg/m2 12/31/2024 05:12 AM Body Weight (68091-1) 298.4 [lb_av ] Body Mass Index (82621-8) 40.47 kg/m2 12/05/2024 06:11 AM Body Weight (02790-6) 293.2 [lb_av ] Body Mass Index (53093-7) 39.76 kg/m2 12/01/2024 11:30 AM Body Weight (07601-5) 294 [lb_av] Body Mass Index (17197-3) 39.87 kg/m2 01/02/2025 06:30 AM Body Weight (41658-9) 299.6 [lb_av ] Body Mass Index (02471-2) 40.63 kg/m2 12/13/2024 07:19 AM Temperature (8310-5) 97.9 [degF] Respiratory Rate (9279-1) 16 /min Heart Rate (8867-4) 113 /min Blood Pressure Systolic (8480-6) 148 mm[Hg] Blood Pressure Diastolic (8462-4) 72 mm[Hg] Body Weight (81929-6) 288.8 [lb_av] Body Mass Index (91372-1) 39.16 kg/m2 12/06/2024 11:58 AM Body Weight (51815-6) 298.2 [lb_av ] Body Mass Index (13931-9) 40.44 kg/m2 12/08/2024 07:13 AM Body Weight (63026-5) 297.4 [lb_av ] Body Mass Index (17345-6) 40.33 kg/m2 12/15/2024 08:38 AM Body Weight (45530-6) 295.4 [lb_av ] Body Mass Index (43759-0) 40.06 kg/m2 01/03/2025 02:43 PM Oxygen Saturation (56222-1) 96 % 12/10/2024 07:01 AM Body Weight (54857-7) 299.6 [lb_av ] Body Mass Index (18447-2) 40.63 kg/m2 01/01/2025 11:49 AM Oxygen Saturation (85350-8) 94 % 12/07/2024 07:16 AM Body Weight (69689-0) 300 [lb_av] Body Mass Index (01547-8) 40.68 kg/m2 12/30/2024 05:48 AM Body Weight (28342-0) 313 [lb_av] Body Mass Index (73965-6) 42.45 kg/m2 12/11/2024 10:23 AM Body Weight (35813-0) 297 [lb_av] Body Mass Index (43936-9) 40.28 kg/m2 11/30/2024 07:19 AM Body Weight (72571-9) 285 [lb_av] Body Mass Index (95068-1) 38.65 kg/m2 12/23/2024 07:01 AM Body Weight (50347-9) 298.4 [lb_av ] Body Mass Index (99390-7) 40.47 kg/m2 01/01/2025 05:22 AM Body Weight (42701-6) 299.6 [lb_av ] Body Mass Index (57785-5) 40.63 kg/m2 12/30/2024 11:55 AM Body Weight (42731-2) 301.6 [lb_av ] Body Mass Index (71736-2) 40.9 kg/m2 12/26/2024 06:02 AM Body Weight (89905-6) 302 [lb_av] Body Mass Index (13170-0) 40.95 kg/m2 12/16/2024 06:37 AM Body Weight (05214-5) 294.6 [lb_av ] Body Mass Index (40193-6) 39.95 kg/m2 12/06/2024 04:45 PM Temperature (8310-5) 97.7 [degF] Respiratory Rate (9279-1) 18 /min Heart Rate (8867-4) 105 /min Blood Pressure Systolic (8480-6) 105 mm[Hg] Blood Pressure Diastolic (8462-4) 52 mm[Hg] 12/04/2024 07:53 AM Body Weight (06388-7) 290.4 [lb_av ] Body Mass Index (05639-9) 39.38 kg/m2 12/02/2024 06:42 AM Body Weight (27741-6) 288 [lb_av] Body Mass Index (49683-8) 39.06 kg/m2 12/01/2024 05:27 AM Body Weight (81588-5) 277.6 [lb_av ] Body Mass Index (58740-2) 37.65 kg/m2 01/01/2025 05:38 AM Oxygen Saturation (72590-4) 97 % 12/31/2024 08:17 PM Oxygen Saturation (97183-2) 98 % 12/27/2024 10:43 AM Temperature (8310-5) 97.4 [degF] Respiratory Rate (9279-1) 18 /min Heart Rate (8867-4) 96 /min Blood Pressure Systolic (8480-6) 122 mm[Hg] Blood Pressure Diastolic (8462-4) 78 mm[Hg] 12/21/2024 05:58 AM Body Weight (75214-5) 295.2 [lb_av ] Body Mass Index (33915-5) 40.03 kg/m2 12/14/2024 06:54 AM Body Weight (48619-8) 294.6 [lb_av ] Body Mass Index (34028-7) 39.95 kg/m2 12/03/2024 06:29 AM Body Weight (35050-6) 290.6 [lb_av ] Body Mass Index (18580-3) 39.41 kg/m2 11/29/2024 07:50 AM Temperature (8310-5) 97.4 [degF] Respiratory Rate (9279-1) 18 /min Heart Rate (8867-4) 115 /min Blood Pressure Systolic (8480-6) 131 mm[Hg] Blood Pressure Diastolic (8462-4) 62 mm[Hg] 01/04/2025 07:23 AM Body Weight (40158-4) 305.8 [lb_av ] Body Mass Index (33026-0) 41.47 kg/m2 01/03/2025 11:38 PM Oxygen Saturation (06116-5) 96 % 12/28/2024 07:17 AM Body Weight (66822-9) 299.6 [lb_av ] Body Mass Index (65237-3) 40.63 kg/m2 12/27/2024 06:58 AM Body Weight (38629-9) 298.8 [lb_av ] Body Mass Index (82994-8) 40.52 kg/m2 12/22/2024 07:02 AM Body Weight (81442-2) 301.2 [lb_av ] Body Mass Index (45961-8) 40.85 kg/m2 12/19/2024 06:07 AM Body Weight (55198-9) 277.6 [lb_av ] Body Mass Index (48348-4) 37.65 kg/m2 12/09/2024 07:12 AM Body Weight (28615-8) 294.4 [lb_av ] Body Mass Index (71530-2) 39.92 kg/m2 11/22/2024 11:41 AM Temperature (8310-5) 97.5 [degF] Respiratory Rate (9279-1) 20 /min Heart Rate (8867-4) 116 /min Blood Pressure Systolic (8480-6) 151 mm[Hg] Blood Pressure Diastolic (8462-4) 68 mm[Hg] 11/28/2024 06:48 AM Body Weight (63666-9) 285.4 [lb_av ] Body Mass Index (52537-5) 38.7 kg/m2 11/25/2024 05:10 AM Body Weight (85962-5) 288.4 [lb_av ] Body Mass Index (96020-5) 39.11 kg/m2 11/24/2024 07:14 AM Body Weight (38030-8) 284.6 [lb_av ] Body Mass Index (40419-5) 38.59 kg/m2 11/23/2024 07:05 AM Body Weight (94811-2) 284.6 [lb_av ] Body Mass Index (88893-5) 38.59 kg/m2 11/22/2024 06:30 AM Body Weight (65659-7) 287.4 [lb_av ] Body Mass Index (69523-5) 38.97 kg/m2 11/26/2024 06:21 AM Body Weight (53745-4) 284.4 [lb_av ] Body Mass Index (89006-9) 38.57 kg/m2 11/21/2024 06:29 AM Body Weight (94341-1) 284.4 [lb_av ] Body Mass Index (09632-1) 38.57 kg/m2 11/19/2024 11:26 AM Body Weight (34728-6) 286.5 [lb_av ] Body Mass Index (58186-8) 38.85 kg/m2 11/29/2024 07:04 AM Body Weight (44311-7) 280.6 [lb_av ] Body Mass Index (84894-2) 38.05 kg/m2 11/27/2024 05:02 AM Body Weight (58735-9) 288 [lb_av] Body Mass Index (42886-5) 39.06 kg/m2 11/20/2024 11:16 AM Body Weight (79634-7) 285.2 [lb_av ] Body Mass Index (81084-3) 38.68 kg/m2 10/25/2024 08:08 AM Body Weight (45162-3) 285.6 [lb_av ] Body Mass Index (83752-5) 38.73 kg/m2 11/14/2024 07:07 AM Body Weight (78587-5) 280.6 [lb_av ] Body Mass Index (68825-1) 38.05 kg/m2 11/15/2024 11:25 AM Temperature (8310-5) 97.3 [degF] Respiratory Rate (9279-1) 17 /min Heart Rate (8867-4) 70 /min Blood Pressure Systolic (8480-6) 122 mm[Hg] Blood Pressure Diastolic (8462-4) 74 mm[Hg] 11/03/2024 05:52 PM Body Weight (37351-1) 286 [lb_av] Body Mass Index (90439-5) 38.78 kg/m2 11/02/2024 07:15 AM Body Weight (92755-8) 285.6 [lb_av ] Body Mass Index (04068-0) 38.73 kg/m2 10/23/2024 09:44 AM Body Weight (22070-7) 287 [lb_av] Body Mass Index (19350-7) 38.92 kg/m2 11/17/2024 06:06 AM Body Weight (98876-9) 283.4 [lb_av ] Body Mass Index (50082-4) 38.43 kg/m2 10/24/2024 09:36 AM Body Weight (52211-0) 287.6 [lb_av ] Body Mass Index (50648-4) 39 kg/m2 11/18/2024 06:34 AM Body Weight (09161-6) 283 [lb_av] Body Mass Index (59913-1) 38.38 kg/m2 11/16/2024 07:23 AM Body Weight (89897-2) 283.6 [lb_av ] Body Mass Index (12824-2) 38.46 kg/m2 11/10/2024 06:51 AM Body Weight (30880-6) 283 [lb_av] Body Mass Index (62176-0) 38.38 kg/m2 11/09/2024 06:52 AM Body Weight (47840-1) 285.6 [lb_av ] Body Mass Index (16906-0) 38.73 kg/m2 11/12/2024 06:57 AM Body Weight (00033-9) 285 [lb_av] Body Mass Index (49317-3) 38.65 kg/m2 11/06/2024 08:21 AM Body Weight (12638-5) 286.6 [lb_av ] Body Mass Index (00467-2) 38.87 kg/m2 11/04/2024 05:46 AM Body Weight (28399-0) 283 [lb_av] Body Mass Index (78792-6) 38.38 kg/m2 10/30/2024 09:17 AM Body Weight (36037-8) 284.8 [lb_av ] Body Mass Index (39267-9) 38.62 kg/m2 10/16/2024 08:32 AM Body Weight (60494-4) 288.4 [lb_av ] Body Mass Index (94710-4) 39.11 kg/m2 11/15/2024 07:34 AM Body Weight (66886-2) 289 [lb_av] Body Mass Index (94147-0) 39.19 kg/m2 10/26/2024 02:47 PM Body Weight (14101-6) 286.2 [lb_av ] Body Mass Index (79403-2) 38.81 kg/m2 10/21/2024 08:55 AM Body Weight (50637-8) 285.4 [lb_av ] Body Mass Index (85547-5) 38.7 kg/m2 10/13/2024 11:08 AM Body Weight (39189-9) 282 [lb_av] Body Mass Index (43936-6) 38.24 kg/m2 10/09/2024 07:53 AM Body Weight (31370-7) 276.6 [lb_av ] Body Mass Index (95452-7) 37.51 kg/m2 11/01/2024 01:35 PM Body Weight (15879-3) 284.4 [lb_av ] Body Mass Index (50191-4) 38.57 kg/m2 10/18/2024 07:54 AM Body Weight (69312-9) 290 [lb_av] Body Mass Index (88571-1) 39.33 kg/m2 10/11/2024 08:15 AM Body Weight (28433-0) 282.2 [lb_av ] Body Mass Index (21219-0) 38.27 kg/m2 10/08/2024 07:35 AM Body Weight (67478-0) 279 [lb_av] Body Mass Index (13535-0) 37.84 kg/m2 10/29/2024 06:59 AM Body Weight (81354-3) 282.4 [lb_av ] Body Mass Index (61534-2) 38.3 kg/m2 10/22/2024 11:33 AM Body Weight (19322-9) 279.2 [lb_av ] Body Mass Index (51338-7) 37.86 kg/m2 10/17/2024 11:07 AM Body Weight (77222-8) 287.6 [lb_av ] Body Mass Index (31255-8) 39 kg/m2 11/11/2024 06:57 AM Body Weight (91081-6) 284 [lb_av] Body Mass Index (66599-8) 38.51 kg/m2 10/15/2024 12:36 PM Body Weight (48797-0) 286.6 [lb_av ] Body Mass Index (90718-9) 38.87 kg/m2 11/08/2024 05:20 PM Temperature (8310-5) 98 [degF] Respiratory Rate (9279-1) 19 /min Heart Rate (8867-4) 96 /min Blood Pressure Systolic (8480-6) 132 mm[Hg] Blood Pressure Diastolic (8462-4) 81 mm[Hg] 11/05/2024 11:18 AM Body Weight (40675-2) 288 [lb_av] Body Mass Index (38888-4) 39.06 kg/m2 10/19/2024 07:43 AM Body Weight (15435-5) 284 [lb_av] Body Mass Index (87044-7) 38.51 kg/m2 11/08/2024 06:19 AM Body Weight (40218-5) 285.6 [lb_av ] Body Mass Index (81298-3) 38.73 kg/m2 10/28/2024 06:59 AM Body Weight (96078-7) 287.2 [lb_av ] Body Mass Index (72618-0) 38.95 kg/m2 10/27/2024 08:42 AM Body Weight (52040-4) 285.6 [lb_av ] Body Mass Index (00676-2) 38.73 kg/m2 11/13/2024 08:24 AM Body Weight (76044-2) 286.4 [lb_av ] Body Mass Index (04038-2) 38.84 kg/m2 11/07/2024 08:28 AM Body Weight (87292-7) 288 [lb_av] Body Mass Index (00305-7) 39.06 kg/m2 10/31/2024 07:30 AM Body Weight (32428-0) 276.2 [lb_av ] Body Mass Index (41807-9) 37.46 kg/m2 10/20/2024 08:25 AM Body Weight (52945-9) 287.6 [lb_av ] Body Mass Index (57941-8) 39 kg/m2 10/14/2024 08:23 AM Body Weight (63025-5) 277.4 [lb_av ] Body Mass Index (73322-3) 37.62 kg/m2 11/03/2024 05:32 PM Body Weight (98621-3) 286 [lb_av] Body Mass Index (97420-7) 38.78 kg/m2 10/10/2024 10:20 AM Body Weight (03466-1) 175 [lb_av] Body Mass Index (65144-1) 23.73 kg/m2 11/01/2024 08:39 AM Temperature (8310-5) 97.1 [degF] Respiratory Rate (9279-1) 18 /min Heart Rate (8867-4) 119 /min Blood Pressure Systolic (8480-6) 116 mm[Hg] Blood Pressure Diastolic (8462-4) 75 mm[Hg] 10/12/2024 09:27 AM Body Weight (59262-7) 281.4 [lb_av ] Body Mass Index (62599-7) 38.16 kg/m2 01/05/2025 08:13 PM Oxygen Saturation (96928-7) 98 % 01/06/2025 07:03 AM Oxygen Saturation (33985-7) 97 % 01/06/2025 07:04 AM Body Weight (77467-6) 319 [lb_av] Body Mass Index (97876-7) 43.26 kg/m2 01/06/2025 08:54 PM Oxygen Saturation (02842-8) 99 % 01/07/2025 07:10 AM Oxygen Saturation (81848-5) 98 % Body Weight (38826-4) 309 [lb_av] Body Mass Index (99288-9) 41.9 kg/m2 01/07/2025 07:59 PM Oxygen Saturation (36059-2) 97 % 01/08/2025 08:37 AM Oxygen Saturation (02107-5) 97 % Body Weight (82179-4) 322 [lb_av] Body Mass Index (57810-5) 43.67 kg/m2 01/08/2025 06:15 PM Oxygen Saturation (04593-3) 94 % 01/09/2025 07:16 AM Body Weight (40889-2) 314.6 [lb_av ] Body Mass Index (60296-8) 42.66 kg/m2 01/09/2025 07:15 AM Oxygen Saturation (42492-8) 99 % 01/10/2025 07:28 AM Temperature (8310-5) 98.4 [degF] Oxygen Saturation (57523-5) 92 % Respiratory Rate (9279-1) 18 /min Heart Rate (8867-4) 112 /min Blood Pressure Systolic (8480-6) 127 mm[Hg] Blood Pressure Diastolic (8462-4) 52 mm[Hg] 01/10/2025 05:37 AM Body Weight (38356-2) 324 [lb_av] Body Mass Index (51349-2) 43.94 kg/m2 01/10/2025 08:23 PM Oxygen Saturation (85292-0) 96 % 01/11/2025 07:26 AM Oxygen Saturation (03297-0) 98 % Body Weight (87339-2) 320.6 [lb_av] Body Mass Index (44410-6) 43.48 kg/m2 01/11/2025 06:34 PM Oxygen Saturation (18685-2) 97 % 01/12/2025 07:12 AM Oxygen Saturation (42434-0) 99 % Body Weight (05185-6) 334 [lb_av] Body Mass Index (67521-9) 45.29 kg/m2 01/12/2025 11:30 PM Oxygen Saturation (94828-5) 94 % 01/13/2025 05:17 AM Body Weight (98609-4) 329.2 [lb_av ] Body Mass Index (09975-7) 44.64 kg/m2 01/13/2025 10:06 AM Oxygen Saturation (41110-3) 96 % 01/14/2025 12:26 AM Oxygen Saturation (26851-1) 98 % 01/14/2025 04:17 AM Oxygen Saturation (87766-4) 95 % 01/14/2025 11:54 AM Oxygen Saturation (34766-8) 95 % 01/14/2025 11:53 AM Oxygen Saturation (30791-5) 95 % 01/14/2025 11:27 AM Body Weight (44309-6) 330 [lb_av] Body Mass Index (57177-0) 44.75 kg/m2 01/14/2025 09:29 PM Oxygen Saturation (40306-4) 95 % 01/15/2025 04:13 AM Oxygen Saturation (27041-1) 94 % 01/15/2025 09:37 AM Body Weight (88645-0) 329.8 [lb_av ] Body Mass Index (03239-7) 44.72 kg/m2 01/15/2025 09:36 AM Oxygen Saturation (31278-3) 94 % 01/15/2025 08:23 PM Oxygen Saturation (94092-9) 98 % 01/16/2025 07:41 AM Oxygen Saturation (70268-5) 99 % 01/16/2025 06:40 AM Body Weight (18924-6) 326.6 [lb_av ] Body Mass Index (44422-3) 44.29 kg/m2 01/17/2025 08:04 AM Body Weight (18955-8) 336 [lb_av] Body Mass Index (55352-6) 45.56 kg/m2 01/17/2025 12:21 PM Temperature (8310-5) 98.2 [degF] Oxygen Saturation (39637-2) 97 % Respiratory Rate (9279-1) 20 /min Heart Rate (8867-4) 98 /min Blood Pressure Systolic (8480-6) 130 mm[Hg] Blood Pressure Diastolic (8462-4) 62 mm[Hg] 01/17/2025 10:29 PM Oxygen Saturation (30489-4) 98 % 01/18/2025 07:14 AM Body Weight (97351-5) 335.8 [lb_av ] Body Mass Index (40621-8) 45.54 kg/m2 01/18/2025 07:13 AM Oxygen Saturation (93446-2) 97 % 01/18/2025 07:26 PM Oxygen Saturation (97275-2) 97 % 01/19/2025 08:47 AM Body Weight (32824-6) 337.8 [lb_av ] Body Mass Index (82389-7) 45.81 kg/m2 01/19/2025 06:55 AM Oxygen Saturation (70793-6) 99 % 01/20/2025 07:29 AM Oxygen Saturation (74827-1) 97 % Body Weight (03454-1) 338.6 [lb_av] Body Mass Index (98915-6) 45.92 kg/m2 01/20/2025 08:16 PM Temperature (8310-5) 98.7 [degF] Oxygen Saturation (45023-8) 92 % Respiratory Rate (9279-1) 25 /min Heart Rate (8867-4) 90 /min Blood Pressure Systolic (8480-6) 126 mm[Hg] Blood Pressure Diastolic (8462-4) 76 mm[Hg] 01/21/2025 07:02 AM Oxygen Saturation (07718-5) 95 % 01/21/2025 05:16 AM Body Weight (80984-9) 352.8 [lb_av ] Body Mass Index (32119-7) 47.84 kg/m2 Social History No smoking Hx information available Encounters Type CPT Code Date Location Provider Indication s encounter report 02/24/2024 05:25 PM Karen Parker DO 01 Advance Directives Directive Description Verification Date Supporting Document(s) Other Directive
--- OUTSIDE RECORDS SUMMARY | 2025-01-21 20:36 | XMS_ITS | Encounter Summary ---
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
--- OUTSIDE RECORDS SUMMARY | 2025-01-21 20:36 | XMS_ITS | Encounter Summary ---
Author Organization [facility] Address [address] [place] [address] Care Team Providers Care Director Medical Science Name Role Phone Cuba Solano MD Primary Care Provider [phone] [phone] Encounter Details Date Type Department Care Team (Latest Contact Info) Description 01/18/2006 [facility] 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
--- OUTSIDE RECORDS SUMMARY | 2025-01-21 20:36 | XMS_ITS | Encounter Summary ---
Author Organization [facility] Address [address] [place] [address] Care Team Providers Care Flash Welder Name Role Phone Cuba Solano MD Primary Care Provider [phone] Encounter Details Date Type Department Care Team (Latest Contact Info) Description 12/26/2004 Outpatient Historical [facility] Family Medicine [place] 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
--- OUTSIDE RECORDS SUMMARY | 2025-01-21 20:36 | XMS_ITS | Encounter Summary ---
Author Organization [facility] Address [address] [place] [address] Care Team Providers Care Sprayer Hand Name Role Phone Cuba Solano MD Primary Care Provider [phone] Encounter Details Date Type Department Care Team (Latest Contact Info) Description 01/12/2006 Outpatient Historical [facility] [address] 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
--- OUTSIDE RECORDS SUMMARY | 2025-01-21 20:36 | XMS_ITS | Encounter Summary ---
Author Organization [facility] Address [address] [place] [address] Care Team Providers Care Contracts Advisor Name Role Phone Cuba Solano MD Primary Care Provider [phone] Encounter Details Date Type Department Care Team (Latest Contact Info) Description 05/26/2005 Outpatient Historical [facility] Family Medicine [place] [id number] [address] Keyona Mccloud, LUCIEN NO ADDRESS ON FILE ALLERGY, UNSPECIFIED (Primary Dx); TRACHEA/BRONCHUS DIS NEC Social History Tobacco Use Types Packs/Day Years Used Date Smoking Tobacco: Never Assessed Sex and Gender Information Value Date Recorded Sex Assigned at Not on file Legal Sex Male 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
--- OUTSIDE RECORDS SUMMARY | 2025-01-21 20:36 | XMS_ITS | Encounter Summary ---
Author Organization [facility] Address [address] [place] [address] Care Team Providers Care Core Dropper Name Role Phone Cuba Solano MD Primary Care Provider [phone] Encounter Details Date Type Department Care Team (Latest Contact Info) Description 05/15/2005 Outpatient Historical 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
--- OUTSIDE RECORDS SUMMARY | 2025-01-21 20:36 | XMS_ITS | Encounter Summary ---
Author Organization [facility] Address [address] [place] [address] Care Team Providers Care Survey Project Manager Name Role Phone Cuba Solano MD Primary Care Provider +1 [phone] Encounter Details Date Type Department Care Team (Latest Contact Info) Description 01/09/2005 Outpatient Historical [facility] Family Medicine Angelica [facility] [address] [address] Huey Upton Jr., MD [address] [place] [address] 248 [facility] 140 [place] [address] DERMATITIS NEC (Primary Dx) Social History Tobacco Use Types Packs/Day Years Used Date Smoking Tobacco: Never Assessed Sex and Gender Information Value Date Recorded Sex Assigned at Not on file Legal 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
--- OUTSIDE RECORDS SUMMARY | 2025-01-21 20:36 | XMS_ITS | Encounter Summary ---
Author Organization [facility] Address [address] [place] [address] Care Team Providers Care City Auditor Name Role Phone Cbua Solano MD Primary Care Provider +1 -[phone] Encounter Details Date Type Department Care Team (Latest Contact Info) Description 12/02/2005 Outpatient Historical [facility] Family Medicine Angelica [facility] [address] [address] Huey Upton Jr., MD [address] [place] [address] 248 [facility] 140 [place] [address] DM w/o Complication Type II (CMS/HCC) (Primary Dx); Other and Unspecified Hyperlipidemia; Unspecified Essential Hypertension; Pain in Joint, Shoulder Region Social History Tobacco Use Types Packs/Day Years Used Date Smoking Tobacco: Never Assessed Sex and Gender Information Value Date Recorded Sex Assigned at Not on file 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
--- OUTSIDE RECORDS SUMMARY | 2025-01-21 20:36 | XMS_ITS | Encounter Summary ---
Author Organization [facility] Address [address] [place] [address] Care Team Providers Care Communications Instructor Name Role Phone Cuba Solano MD Primary Care Provider +1 -[phone] Encounter Details Date Type Department Care Team (Latest Contact Info) Description 12/29/2005 Outpatient Historical [facility] [address] [facility] 100 [place] [address] Ash Lopez III, MD [address] [place] [address] Other Affections of Shoulder Region, not Elsewhere Classified (Primary Dx) Social History Tobacco Use Types Packs/Day Years Used Date Smoking Tobacco: Never Assessed Sex and Gender Information Value Date Recorded Sex Assigned at Not on file 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 Phone Number INTERFACE SYSTEM Refer to clinic/hospital [...] CARE TESTING Final Result Performing Organization Address [facility] Phone Number INTERFACE SYSTEM Refer to clinic/hospital department * (ABNORMAL) POC GLUCOSE (12/29/2005 7:05 AM CDT) GLUCOSE POC 133(H) 60 - 100 mg/dL INTERFACE SYSTEM 12/29/2005 7:05 AM CDT Ash Lopez III, MD POINT OF CARE TESTING Final Result Performing Organization Address [facility] Phone Number INTERFACE SYSTEM Refer to clinic/hospital department documented in this encounter Visit Diagnoses Diagnosis Other affections of shoulder region, not elsewhere classified- Primary documented in this encounter Care Teams Communications Instructor Relationship Specialty Start Date End Date Cuba Solano MD PCP - General 07/11/09 documented as of this encounter
--- OUTSIDE RECORDS SUMMARY | 2025-01-21 20:36 | XMS_ITS | Encounter Summary ---
Author Organization [facility] Address [address] [place] [address] Care Team Providers Care Court Registry Officer Name Role Phone Cuba Solano MD Primary Care Provider +1 [phone] Encounter Details Date Type Department Care Team (Latest Contact Info) Description 08/28/[address] 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
--- OUTSIDE RECORDS SUMMARY | 2025-01-21 20:36 | XMS_ITS | Encounter Summary ---
Author Organization [facility] Address [address] [place] [address] Care Team Providers Care Rhinologist Name Role Phone Cuba Solano MD Primary Care Provider +1 [phone] Encounter Details Date Type Department Care Team (Latest Contact Info) Description 11/25/2005 Outpatient Historical [facility] Orthopedics- 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
--- OUTSIDE RECORDS SUMMARY | 2025-01-21 20:36 | XMS_ITS | Encounter Summary ---
Author Organization [facility] Address [address] [place] [address] Care Team Providers Care Belting And Webbing Inspector Name Role Phone Cuba Solano MD Primary Care Provider +1 -[phone] Encounter Details Date Type Department Care Team (Late st Contact Info) Description 02/02/2006 Outpatient Historical [facility] Family Medicine Angelica [place] [id number] [address] Social History Tobacco Use Types Packs/Day Years Used Date Smoking Tobacco: Never Assessed Sex and Gender Information Value Date Recorded Sex Assigned at Not on file Legal 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
--- OUTSIDE RECORDS SUMMARY | 2025-01-21 20:36 | XMS_ITS | Encounter Summary ---
Author Organization [facility] Address [address] [place] [address] Care Team Providers Care Hadoop Software Engineer Name Role Phone Cuba Solano MD Primary Care Provider +1 -[phone] Encounter Details Date Type Department Care Team (Late st Contact Info) Description 03/04/2005 Outpatient Historical [facility] Family Medicine Angelica [place] [id number] [address] Social History Tobacco Use Types Packs/Day Years Used Date Smoking Tobacco: Never Assessed Sex and Gender Information Value Date Recorded Sex Assigned at Not on file Legal 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
--- OUTSIDE RECORDS SUMMARY | 2025-01-21 20:36 | XMS_ITS | Encounter Summary ---
Author Organization [facility] Address [address] [place] [address] Care Team Providers Care Structural Welder Name Role Phone Cuba Solano MD Primary Care Provider +1 -[phone] Encounter Details Date Type Department Care Team (Latest Contact Info) Description 12/10/2004 Outpatient Historical [facility] Orthopedics- 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
--- OUTSIDE RECORDS SUMMARY | 2025-01-21 20:36 | XMS_ITS | Encounter Summary ---
Author Organization [facility] Address [address] [place] [address] Care Team Providers Care Tobacco Stemmer Machine Name Role Phone Cuba Solano MD Primary Care Provider +1 [phone] Encounter Details Date Type Department Care Team (Latest Contact Info) Description 07/20/2005 [facility] 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
--- OUTSIDE RECORDS SUMMARY | 2025-01-21 20:37 | XMS_ITS | Encounter Summary ---
Author Organization [facility] Address [address] [place] [address] Care Team Providers Care Inspector And Adjuster Golf Club Head Name Role Phone Cuba Solano MD Primary Care Provider +1 -[phone] Encounter Details Date Type Department Care Team (Latest Contact Info) Description 11/18/2004 Outpatient Historical [facility] Orthopedics- [address] [place] [address] [place] [address] Ash Lopez III, MD [address] [place] [address] LOC PRIM OSTEOART-L/LEG (Primary Dx) Social History Tobacco Use Types Packs/Day Years Used Date Smoking Tobacco: Never Assessed Sex and Gender Information Value Date Recorded Sex Assigned at Not on file Legal Sex Male 2:49 AM STATISTICIAN Gender Identity Not on file Sexual Orientation Not on file documented as of this encounter Plan of Treatment Not on file documented as of this encounter Visit Diagnoses Diagnosis Primary localized osteoarthrosis, lower leg- Primary documented in this encounter Care Teams Inspector And Adjuster Golf Club Head Relationship Specialty Start Date End Date Cuba Solano MD PCP - General 07/11/09 documented as of this encounter
--- OUTSIDE RECORDS SUMMARY | 2025-01-21 20:37 | XMS_ITS | Encounter Summary ---
Author Organization [facility] Address [address] [place] [address] Care Team Providers Care Manager Of It Name Role Phone Cuba Solano MD Primary Care Provider +1 -[phone] Encounter Details Date Type Department Care Team (Latest Contact Info) Description 06/17/2006 Outpatient [facility] Family Medicine Angelica [place] [address] [address] Keyona Mccloud, LUCIEN NO ADDRESS ON FILE Unspecified Otitis Media (Primary Dx); Unspecified Tachycardia; Palpitations Social History Tobacco Use Types Packs/Day Years Used Date Smoking Tobacco: Never Assessed Sex and Gender Information Value Date Recorded Sex Assigned at Not on file Legal Sex Male 2:49 AM SUPPORT SERVICES SPECIALIST Gender Identity Not on file Sexual Orientation Not on file documented as of this encounter Plan of Treatment Not on file documented as of this encounter Visit Diagnoses Diagnosis Unspecified otitis media- Primary Tachycardia, unspecified Palpitations documented in this encounter Care Teams Manager Of It Relationship Specialty Start Date End Date Cuba Solano MD PCP - General 07/11/09 documented as of this encounter
--- OUTSIDE RECORDS SUMMARY | 2025-01-21 20:37 | XMS_ITS | Encounter Summary ---
Author Organization [facility] Address [address] [place] [address] Care Team Providers Care Home Health Lvn Name Role Phone Cuba Solano MD Primary Care Provider +1 -[phone] Encounter Details Date Type Department Care Team (Latest Contact Info) Description 05/25/2006 Outpatient Historical [facility] Orthopedics- [address] [place] 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
--- OUTSIDE RECORDS SUMMARY | 2025-01-21 20:37 | XMS_ITS | Encounter Summary ---
Author Organization [facility] Address [address] [place] [address] Care Team Providers Care Overedge Sewer Name Role Phone Cuba Solano MD Primary Care Provider +1 -[phone] Encounter Details Date Type Department Care Team (Latest Contact Info) Description 07/04/2001 Outpatient Historical [facility] Family Medicine Angelica [place] [address] [address] Donte Borrego MD NO ADDRESS ON FILE HYPERTENSION NOS (Primary Dx); HYPERLIPIDEMIA NEC/NOS; AFTERCARE FDC USE MEDICATN; VACCINE FOR STREP PNEUMONIAE Social History Tobacco Use Types Packs/Day Years Used Date Smoking Tobacco: Never Assessed Sex and Gender Information Value Date Recorded Sex Assigned at Not on file Legal Sex Male 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
--- OUTSIDE RECORDS SUMMARY | 2025-01-21 20:37 | XMS_ITS | Encounter Summary ---
Author Organization [facility] Address [address] [place] [address] Care Team Providers Care Ham Stripper Name Role Phone Cuba Solano MD Primary Care Provider +1 -[phone] Encounter Details Date Type Department Care Team (Latest Contact Info) Description 05/11/2001 Outpatient Historical [facility] Family Medicine Angelica [address] [address] Donte Borrego MD NO ADDRESS ON FILE ACUTE SINUSITIS NOS (Primary Dx); CONJUNCTIVAL HEMORRHAGE; HYPERTENSION NOS Social History Tobacco Use Types Packs/Day Years Used Date Smoking Tobacco: Never Assessed Sex and Gender Information Value Date Recorded Sex Assigned at Not on file Legal Sex Male 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
--- OUTSIDE RECORDS SUMMARY | 2025-01-21 20:37 | XMS_ITS | Encounter Summary ---
Author Organization [facility] Address [address] [place] [address] Care Team Providers Care Woodworking Bench Carpenter Name Role Phone Cuba Solano MD Primary Care Provider +1 -[phone] Encounter Details Date Type Department Care Team (Latest Contact Info) Description 09/03/2004 Outpatient Historical [facility] Family Medicine Angelica [facility] [address] [address] Huey Upton Jr., MD [address] [place] [address] 248 [facility] 140 [place] [address] DIABETES MELLITUS TYPE II-UNCOMPL (CMS/HCC) (Primary Dx); JOINT PAIN-L/LEG Social History Tobacco Use Types Packs/Day Years Used Date Smoking Tobacco: Never Assessed Sex and Gender Information Value Date Recorded Sex Assigned at Not on file Legal 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
--- OUTSIDE RECORDS SUMMARY | 2025-01-21 20:37 | XMS_ITS | Encounter Summary ---
Author Organization [facility] Address [address] [place] [address] Care Team Providers Care Ocean Forwarder Name Role Phone Cuba Solano MD Primary Care Provider +1 -[phone] Encounter Details Date Type Department Care Team (Latest Contact Info) Description 07/15/2006 Outpatient Historical [facility] [address] [place] [address] [facility] [address] [place] [address] Ash Lopez III, MD [address] [place] [address] Adhesive Capsulitis of Shoulder (Primary Dx) Social History Tobacco Use Types Packs/Day Years Used Date Smoking Tobacco: Never Assessed Sex and Gender Information Value Date Recorded Sex Assigned at Not on file Legal Sex Male 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 Gender Identity Not on file Sexual [...] OF CARE TESTING Edited Performing Organization Address [facility] Co de Phone Number INTERFACE SYSTEM Refer to clinic/hospital department * (ABNORMAL) POC GLUCOSE (07/15/2006 11:02 AM CDT) GLUCOSE POC 116(H) 60 - 100 mg/dL INTERFACE SYSTEM 07/15/2006 11:0 2 AM CDT Ash Lopez III, MD POINT OF CARE TESTING Edited Performing Organization Address [facility] de Phone Number INTERFACE SYSTEM Refer to clinic/hospital department documented in this encounter Visit Diagnoses Diagnosis Adhesive capsulitis of shoulder- Primary documented in this encounter Care Teams Ocean Forwarder Relationship Specialty Start Date End Date Cuba Solano MD PCP - General 07/11/09 documented as of this encounter
--- OUTSIDE RECORDS SUMMARY | 2025-01-21 20:37 | XMS_ITS | Encounter Summary ---
Author Organization [facility] Address [address] [place] [address] Care Team Providers Care Clerk Cashier Name Role Phone Cuba Solano MD Primary Care Provider +1 -[phone] Encounter Details Date Type Department Care Team (Latest Contact Info) Description 10/21/2004 Outpatient Historical [facility] Family Medicine Angelica [facility] [address] [address] Huey Upton Jr., MD [address] [place] [address] 248 [facility] 140 [place] [address] ACUTE SINUSITIS NOS (Primary Dx) Social History Tobacco Use Types Packs/Day Years Used Date Smoking Tobacco: Never Assessed Sex and Gender Information Value Date Recorded Sex Assigned at Not on file Legal Sex Male 2:49 AM SHOULDER BONER Gender Identity Not on file Sexual Orientation Not on file documented as of this encounter Plan of Treatment Not on file documented as of this encounter Visit Diagnoses Diagnosis Acute sinusitis, unspecified- Primary documented in this encounter Care Teams Clerk Cashier Relationship Specialty Start Date End Date Cuba Solano MD PCP - General 07/11/09 documented as of this encounter
--- OUTSIDE RECORDS SUMMARY | 2025-01-21 20:37 | XMS_ITS | Encounter Summary ---
Author Organization [facility] Address [address] [place] [address] Care Team Providers Care Certified Cytotechnologist Name Role Phone Cuba Solano MD Primary Care Provider +1 -[phone] Encounter Details Date Type Department Care Team (Latest Contact Info) Description 03/30/2004 Outpatient Historical [facility] [address] [place] [address] [place] [address] Kvng Kilpatrick MD NO ADDRESS ON FILE HYPERSOMNI W SLEEP APNEA (Primary Dx) Social History Tobacco Use Types Packs/Day Years Used Date Smoking Tobacco: Never Assessed Sex and Gender Information Value Date Recorded Sex Assigned at Not on file Legal Sex Male 2:49 AM REED MAN Gender Identity Not on file Sexual Orientation Not on file documented as of this encounter Plan of Treatment Not on file documented as of this encounter Visit Diagnoses Diagnosis Hypersomnia with sleep apnea, unspecified- Primary documented in this encounter Care Teams Certified Cytotechnologist Relationship Specialty Start Date End Date Cuba Solano MD PCP - General 07/11/09 documented as of this encounter
--- OUTSIDE RECORDS SUMMARY | 2025-01-21 20:37 | XMS_ITS | Encounter Summary ---
Author Organization [facility] Address [address] [place] [address] Care Team Providers Care Digging Machine Operator Name Role Phone [place] MD Primary Care Provider +1 [phone] Encounter Details Date Type Department Care Team (Latest Contact Info) Description 09/11/2004 Outpatient Historical [facility] Imaging Services [facility] [place] [address] Huey Upton Jr., MD [address] [place] [address] 248 [facility] [address] [place] [address] CHONDROMALACIA PATELLAE (Primary Dx) Social History Tobacco Use Types Packs/Day Years Used Date Smoking Tobacco: Never Assessed Sex and Gender Information Value Date Recorded Sex Assigned at Not on file Legal Sex Male 2:49 AM LIBRARY MEDIA SPECIALIST Gender Identity Not on file Sexual Orientation Not on file documented as of this encounter Plan of Treatment Not on file documented as of this encounter Visit Diagnoses Diagnosis Chondromalacia of patella- Primary documented in this encounter Care Teams Digging Machine Operator Relationship Specialty Start Date End Date [place] Solano MD PCP - General 07/11/09 documented as of this encounter
--- OUTSIDE RECORDS SUMMARY | 2025-01-21 20:37 | XMS_ITS | Encounter Summary ---
Author Organization [facility] Address [address] [place] [address] Care Team Providers Care Record Label Internship Name Role Phone [place] MD Primary Care Provider +1 [phone] Encounter Details Date Type Department Care Team (Latest Contact Info) Description 04/12/2006 Outpatient Historical [facility] Family Medicine [place] [facility] [address] [address] Huey Upton Jr., MD [address] [place] [address] 248 [facility] 140 [place] [address] Dysphagia (Primary Dx); Unspecified Essential Hypertension Social History Tobacco Use Types Packs/Day Years Used Date Smoking Tobacco: Never Assessed Sex and Gender Information Value Date Recorded Sex Assigned at Not on file Legal 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
--- OUTSIDE RECORDS SUMMARY | 2025-01-21 20:37 | XMS_ITS | Encounter Summary ---
Author Organization [facility] Address [address] [place] [address] Care Team Providers Care Red Leader Name Role Phone [place] MD Primary Care Provider +1 [phone] Encounter Details Date Type Department Care Team (Latest Contact Info) Description 06/11/2004 Outpatient Historical [facility] Family Medicine [place] [facility] [address] [address] Huey Upton Jr., MD [address] [place] [address] 248 [facility] 140 [place] [address] DIABETES MELLITUS TYPE II-UNCOMPL (CMS/HCC) (Primary Dx); JOINT PAIN-L/LEG Social History Tobacco Use Types Packs/Day Years Used Date Smoking Tobacco: Never Assessed Sex and Gender Information Value Date Recorded Sex Assigned at Not on file 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
--- OUTSIDE RECORDS SUMMARY | 2025-01-21 20:37 | XMS_ITS | Encounter Summary ---
Author Organization [facility] Address [address] [place] [address] Care Team Providers Care Airways Operations Specialist Name Role Phone [place] MD Primary Care Provider +1 [phone] Encounter Details Date Type Department Care Team (Latest Contact Info) Description 04/05/2006 [facility] 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
--- OUTSIDE RECORDS SUMMARY | 2025-01-21 20:37 | XMS_ITS | Encounter Summary ---
Author Organization [facility] Address [address] [place] [address] Care Team Providers Care College Instructor Name Role Phone [place] MD Primary Care Provider +1 [phone] Encounter Details Date Type Department Care Team (Latest Contact Info) Description 11/22/2000 Outpatient Historical [facility] Family Medicine [place] [address] [address] Donte Borrego MD NO ADDRESS ON FILE Other and unspecified hyperlipidemia (Primary Dx); Encounter for long-term (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 of other medications Social History Tobacco Use Types Packs/Day Years Used Date Smoking Tobacco: Never Assessed Sex and Gender Information Value Date Recorded Sex Assigned at Not on file 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
--- OUTSIDE RECORDS SUMMARY | 2025-01-21 20:37 | XMS_ITS | Encounter Summary ---
Author Organization [facility] Address [address] [place] [address] Care Team Providers Care Manager Lsw Name Role Phone [place] MD Primary Care Provider +1 [phone] Encounter Details Date Type Department Care Team (Late st Contact Info) Description 09/11/2004 Outpatient Historical [facility] Imaging Services [facility] 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
--- OUTSIDE RECORDS SUMMARY | 2025-01-21 20:37 | XMS_ITS | Encounter Summary ---
Author Organization [facility] Address [address] [place] [address] Care Team Providers Care Hadoop Java Developer Name Role Phone [place] MD Primary Care Provider +1 [phone] Encounter Details Date Type Department Care Team (Latest Contact Info) Description 05/30/2001 Outpatient Historical [facility] Family Medicine [place] [address] [address] Donte Borrego MD NO ADDRESS ON FILE HYPERTENSION NOS (Primary Dx); ACUTE SINUSITIS NOS; KERATODERMA, ACQUIRED; HYPERLIPIDEMIA NEC/NOS Social History Tobacco Use Types Packs/Day Years Used Date Smoking Tobacco: Never Assessed Sex and Gender Information Value Date Recorded Sex Assigned at Not on file 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
--- OUTSIDE RECORDS SUMMARY | 2025-01-21 20:37 | XMS_ITS | Encounter Summary ---
Author Organization [facility] Address [address] [place] [address] Care Team Providers Care Banking Attorney Name Role Phone [place] Sol[place] MD Primary Care Provider +1 [phone] Encounter Details Date Type Department Care Team (Late st Contact Info) Description 09/02/2004 Outpatient Historical [facility] Family Medicine [place] [address] [address] Social History Tobacco Use Types Packs/Day Years Used Date Smoking Tobacco: Never Assessed Sex and Gender Information Value Date Recorded Sex Assigned at Not on file Legal 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
--- OUTSIDE RECORDS SUMMARY | 2025-01-21 20:37 | XMS_ITS | Encounter Summary ---
Author Organization [facility] Address [address] [place] [address] Care Team Providers Care Data Steward Name Role Phone [place] MD Primary Care Provider +1 [phone] Encounter Details Date Type Department Care Team (Latest Contact Info) Description 07/08/2006 Outpatient Historical [facility] Family Medicine [place] [address] [address] Keyona Mccloud, MANAGER TALENT MANAGEMENT NO ADDRESS ON FILE Allergy, Unspecified not Elsewhere Classified (Primary Dx) Social History Tobacco Use Types Packs/Day Years Used Date Smoking Tobacco: Never Assessed Sex and Gender Information Value Date Recorded Sex Assigned at Not on file 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
--- OUTSIDE RECORDS SUMMARY | 2025-01-21 20:37 | XMS_ITS | Encounter Summary ---
Author Organization [facility] Address [address] [place] [address] Care Team Providers Care Issuer Name Role Phone [place] Sol[place] MD Primary Care Provider +1 [phone] Encounter Details Date Type Department Care Team (Latest Contact Info) Description 11/12/[address] [facility] Orthopedics- 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
--- OUTSIDE RECORDS SUMMARY | 2025-01-21 20:37 | XMS_ITS | Encounter Summary ---
Author Organization [facility] Address [address] [place] [address] Care Team Providers Care Asset Management Coordinator Name Role Phone [place] Sol[place] MD Primary Care Provider +1 [phone] Encounter Details Date Type Department Care Team (Latest Contact Info) Description 11/21/2004 Outpatient Historical [facility] Family Medicine [place] [address] [address] Keyona Mccloud, LUCIEN NO ADDRESS ON FILE Pain in limb (Primary Dx) Social History Tobacco Use Types Packs/Day Years Used Date Smoking Tobacco: Never Assessed Sex and Gender Information Value Date Recorded Sex Assigned at Not on file Legal 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
--- OUTSIDE RECORDS SUMMARY | 2025-01-21 20:37 | XMS_ITS | Encounter Summary ---
Author Organization [facility] Address [address] [place] [address] Care Team Providers Care Premium Service Representative Name Role Phone [place] Sol[place] MD Primary Care Provider +1 [phone] Encounter Details Date Type Department Care Team (Latest Contact Info) Description 06/26/2004 Outpatient Historical [facility] Family Medicine [place] [address] [address] Keyona Mccloud, SHIFT MGR NO ADDRESS ON FILE ALLERGY, UNSPECIFIED (Primary Dx) Social History Tobacco Use Types Packs/Day Years Used Date Smoking Tobacco: Never Assessed Sex and Gender Information Value Date Recorded Sex Assigned at Not on file 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
--- OUTSIDE RECORDS SUMMARY | 2025-01-21 20:37 | XMS_ITS | Encounter Summary ---
Author Organization [facility] Address [address] [place] [address] Care Team Providers Care Rolled Materials Worker Name Role Phone [place] Sol[place] MD Primary Care Provider +1 [phone] Encounter Details Date Type Department Care Team (Latest Contact Info) Description 06/28/2006 Outpatient Historical [facility] Family Medicine [place] [address] [address] Keyona Mccloud, LUCIEN NO ADDRESS ON FILE Unspecified Otitis Media (Primary Dx); Acute Sinusitis, Unspecified Social History Tobacco Use Types Packs/Day Years Used Date Smoking Tobacco: Never Assessed Sex and Gender Information Value Date Recorded Sex Assigned at Not on file Legal 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
--- OUTSIDE RECORDS SUMMARY | 2025-01-21 20:37 | XMS_ITS | Encounter Summary ---
Author Organization [facility] Address [address] [place] [address] Care Team Providers Care Door To Door Salesperson Name Role Phone [place] Solano MD Primary Care Provider +1 [phone] Encounter Details Date Type Department Care Team (Latest Contact Info) Description 01/07/2001 Outpatient Historical [facility] Family Medicine [place] [facility] [address] [address] Zara Royal, DO [address] [place] [address] Unspecified essential hypertension (Primary Dx); Other and unspecified hyperlipidemia; Allergy, unspecified not elsewhere classified; Traumatic amputation of leg(s) (complete) (partial), unilateral, at or above knee, 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 Social History Tobacco Use Types Packs/Day Years Used Date Smoking Tobacco: Never Assessed Sex and Gender Information Value Date Recorded Sex Assigned at Not on file 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
--- OUTSIDE RECORDS SUMMARY | 2025-01-21 20:37 | XMS_ITS | Encounter Summary ---
Author Organization [facility] Address [address] [place] [address] Care Team Providers Care Rn Camp Name Role Phone [place] Sol[place] MD Primary Care Provider +1 [phone] Encounter Details Date Type Department Care Team (Latest Contact Info) Description 06/09/2006 Outpatient Historical [facility] Orthopedics- 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
--- OUTSIDE RECORDS SUMMARY | 2025-01-21 20:37 | XMS_ITS | Encounter Summary ---
Author Organization [facility] Address [address] [place] [address] Care Team Providers Care Railway Switchman Name Role Phone [place] Solano MD Primary Care Provider +1 -[phone] Encounter Details Date Type Department Care Team (Latest Contact Info) Description 04/23/2006 Outpatient Historical [facility] Orthopedics- 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
--- OUTSIDE RECORDS SUMMARY | 2025-01-21 20:37 | XMS_ITS | Encounter Summary ---
Author Organization 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
--- OUTSIDE RECORDS SUMMARY | 2025-01-21 20:37 | XMS_ITS | Encounter Summary ---
Author Organization [facility] Address [address] [place] [address] Care Team Providers Care Senior Boiler Operator Name Role Phone [place] Sol[place] MD Primary Care Provider +1 [phone] Encounter Details Date Type Department Care Team (Latest Contact Info) Description 04/07/2001 Outpatient Historical [facility] Family Medicine [place] [address] [address] Donte Borrego MD NO ADDRESS ON FILE HYPERTENSION NOS (Primary Dx); AFTERCARE INTERMEDIATE USE MEDICATN; ANEMIA NOS; VACCINE FOR INFLUENZA Social History Tobacco Use Types Packs/Day Years Used Date Smoking Tobacco: Never Assessed Sex and Gender Information Value Date Recorded Sex Assigned at Not on file Legal 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
--- OUTSIDE RECORDS SUMMARY | 2025-01-21 20:37 | XMS_ITS | Encounter Summary ---
Author Organization [facility] Address [address] [place] [address] Care Team Providers Care Fence Manufacture Supervisor Name Role Phone Cuba Solano MD Primary Care Provider +1 -[phone] Encounter Details Date Type Department Care Team (Latest Contact Info) Description 07/14/2004 Outpatient Historical [facility] Family Medicine [place] [id number] [address] Keyona Mccloud, LUCIEN NO ADDRESS ON FILE THRUSH (Primary Dx); JOINT PAIN-L/LEG Social History Tobacco Use Types Packs/Day Years Used Date Smoking Tobacco: Never Assessed Sex and Gender Information Value Date Recorded Sex Assigned at Not on file Legal Sex Male 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
--- OUTSIDE RECORDS SUMMARY | 2025-01-21 20:37 | XMS_ITS | Encounter Summary ---
Author Organization [facility] Address [address] [place] [address] Care Team Providers Care Heavy Equipment Operator/Paver Name Role Phone Cuba Solano MD Primary Care Provider +1 [phone] Encounter Details Date Type Department Care Team (Latest Contact Info) Description 05/13/2004 Outpatient [facility] Family Medicine Angelica [address] [address] Donte Borrego MD NO ADDRESS ON FILE DIABETES MELLITUS TYPE II UNCONTR UNCOMPL (Primary Dx); Benign hypertension; Dermatitis due to plant Social History Tobacco Use Types Packs/Day Years Used Date Smoking Tobacco: Never Assessed Sex and Gender Information Value Date Recorded Sex Assigned at Not on file Legal 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
--- OUTSIDE RECORDS SUMMARY | 2025-01-21 20:37 | XMS_ITS | Encounter Summary ---
Author Organization [facility] Address [address] [place] [address] Care Team Providers Care Exchange Underwriting Consultant Name Role Phone Cuba Solano MD Primary Care Provider +1 [phone] Encounter Details Date Type Department Care Team (Latest Contact Info) Description 05/04/2006 Outpatient Historical [facility] Family Medicine Angelica [place] 665552 [address] [address] Keyona Mccloud FNP NO ADDRESS ON FILE DM w/o Complication Type II (CMS/HCC) (Primary Dx); Other and Unspecified Hyperlipidemia; Encounter for Long-Term (Current) Use of Other Medications Social History Tobacco Use Types Packs/Day Years Used Date Smoking Tobacco: Never Assessed Sex and Gender Information Value Date Recorded Sex Assigned at Not on file Legal Sex Male 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
--- OUTSIDE RECORDS SUMMARY | 2025-01-21 20:37 | XMS_ITS | Encounter Summary ---
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
--- OUTSIDE RECORDS SUMMARY | 2025-01-21 20:37 | XMS_ITS | Encounter Summary ---
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
--- OUTSIDE RECORDS SUMMARY | 2025-01-21 20:37 | XMS_ITS | Encounter Summary ---
Author Organization [facility] Address [address] [place] [address] Care Team Providers Care Major General Name Role Phone Cuba Solano MD Primary Care Provider +1 [phone] Encounter Details Date Type Department Care Team (Latest Contact Info) Description 04/02/2004 Outpatient Historical [facility] Family Medicine Angelica [address] [address] Donte Borrego MD NO ADDRESS ON FILE DIABETES MELLITUS TYPE II UNCONTR UNCOMPL (Primary Dx); GOUT NOS Social History Tobacco Use Types Packs/Day Years Used Date Smoking Tobacco: Never Assessed Sex and Gender Information Value Date Recorded Sex Assigned at Not on file Legal Sex Male 2:49 AM SPECIAL AGENT GROUP INSURANCE Gender Identity Not on file Sexual Orientation Not on file documented as of this encounter Plan of Treatment Not on file documented as of this encounter Visit Diagnoses Diagnosis Type II or unspecified type diabetes mellitus 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, uncontrolled- Primary Gout, unspecified documented in this encounter Care Teams Major General Relationship Specialty Start Date End Date Cuba Solano MD PCP - General 07/11/09 documented as of this encounter
--- OUTSIDE RECORDS SUMMARY | 2025-01-21 20:37 | XMS_ITS | Encounter Summary ---
Author Organization [facility] Address [address] [place] [address] Care Team Providers Care Retail Merchandising Specialist Name Role Phone Cuba Solano MD Primary Care Provider +1 [phone] Encounter Details Date Type Department Care Team (Late st Contact Info) Description 12/02/2004 Outpatient Historical [facility] Family Medicine [place] [address] [address] Social History Tobacco Use Types Packs/Day Years Used Date Smoking Tobacco: Never Assessed Sex and Gender Information Value Date Recorded Sex Assigned at Not on file Legal Sex Male 2:49 AM CARE COMPANION Gender Identity Not on file Sexual Orientation Not on file documented as of this encounter Plan of Treatment Not on file documented as of this encounter Visit Diagnoses Not on filedocumented in this encounter Care Teams Retail Merchandising Specialist Relationship Specialty Start Date End Date Cuba Solano MD PCP - General 07/11/09 documented as of this encounter
--- OUTSIDE RECORDS SUMMARY | 2025-01-21 20:37 | XMS_ITS | Encounter Summary ---
Author Organization [facility] Address [address] [place] [address] Care Team Providers Care Machine Lead Burner Name Role Phone Cuba Solano MD Primary Care Provider +1 [phone] Encounter Details Date Type Department Care Team (Latest Contact Info) Description 07/27/2006 Outpatient Historical [facility] Orthopedics- 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
--- OUTSIDE RECORDS SUMMARY | 2025-01-21 20:37 | XMS_ITS | Encounter Summary ---
Author Organization [facility] Address [address] [place] [address] Care Team Providers Care Hvac Instructor Name Role Phone Cuba Solano MD Primary Care Provider +1 [phone] Encounter Details Date Type Department Care Team (Late st Contact Info) Description 07/22/2004 Outpatient Historical [facility] Family Medicine Angel[place] [address] [address] Social History Tobacco Use Types Packs/Day Years Used Date Smoking Tobacco: Never Assessed Sex and Gender Information Value Date Recorded Sex Assigned at Not on file Legal Sex Male 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
--- OUTSIDE RECORDS SUMMARY | 2025-01-21 20:37 | XMS_ITS | Encounter Summary ---
Author Organization [facility] Address [address] [place] [address] Care Team Providers Care Bad Credit Collector Name Role Phone Cuba Solano MD Primary Care Provider +1 -[phone] Encounter Details Date Type Department Care Team (Latest Contact Info) Description 06/06/2004 Outpatient Historical [facility] [address] [place] [address] Frances Davies, FLIGHT COMMUNICATIONS OPERATOR [address] [place] [address] HYPERSOMNI W SLEEP APNEA (Primary Dx) Social History Tobacco Use Types Packs/Day Years Used Date Smoking Tobacco: Never Assessed Sex and Gender Information Value Date Recorded Sex Assigned at Not on file Legal Sex Male 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
--- OUTSIDE RECORDS SUMMARY | 2025-01-21 20:37 | XMS_ITS | Encounter Summary ---
Author Organization [facility] Address [address] [place] [address] Care Team Providers Care Analytical Statistician Name Role Phone Cuba Solano MD Primary Care Provider +1 [phone] Encounter Details Date Type Department Care Team (Latest Contact Info) Description 07/18/2004 Outpatient Historical [facility] Family Medicine [place] [address] [address] Keyona Mccloud, LUCIEN NO ADDRESS ON FILE ORAL APHTHAE (Primary Dx); DYSPHAGIA Social History Tobacco Use Types Packs/Day Years Used Date Smoking Tobacco: Never Assessed Sex and Gender Information Value Date Recorded Sex Assigned at Not on file Legal Sex Male 2:49 AM POWER BARKER Gender Identity Not on file Sexual Orientation Not on file documented as of this encounter Plan of Treatment Not on file documented as of this encounter Visit Diagnoses Diagnosis Oral aphthae- Primary Dysphagia documented in this encounter Care Teams Analytical Statistician Relationship Specialty Start Date End Date Cuba Solano MD PCP - General 07/11/09 documented as of this encounter
--- OUTSIDE RECORDS SUMMARY | 2025-01-21 20:37 | XMS_ITS | Encounter Summary ---
Author Organization [facility] Address [address] [place] [address] Care Team Providers Care Service Superintendent Name Role Phone Cuba Solano MD Primary Care Provider +1 -[phone] Encounter Details Date Type Department Care Team (Latest Contact Info) Description 05/27/2006 Outpatient Historical [facility] Family Medicine [place] 27[address]62 [address] [address] Keyona Mc[place], LUCIEN NO ADDRESS ON FILE Other B-Complex Deficiencies (Primary Dx) Social History Tobacco Use Types Packs/Day Years Used Date Smoking Tobacco: Never Assessed Sex and Gender Information Value Date Recorded Sex Assigned at Not on file Legal Sex Male 2:49 AM HAT BODY INSPECTOR Gender Identity Not on file Sexual Orientation Not on file documented as of this encounter Plan of Treatment Not on file documented as of this encounter Visit Diagnoses Diagnosis Other B-complex deficiencies- Primary documented in this encounter Care Teams Service Superintendent Relationship Specialty Start Date End Date Cuba Solano MD PCP - General 07/11/09 documented as of this encounter
--- OUTSIDE RECORDS SUMMARY | 2025-01-21 20:37 | XMS_ITS | Encounter Summary ---
Author Organization [facility] Address [address] [place] [address] Care Team Providers Care Security Risk Analyst Name Role Phone Cuba Solano MD Primary Care Provider +1 [phone] Encounter Details Date Type Department Care Team (Latest Contact Info) Description 07/05/2006 [facility] [address] [place] [address] Huey Upton Jr., MD [address] [place] [address] [address] [place] [address] DM w/o Complication Type II (CMS/HCC) (Primary Dx) Social History Tobacco Use Types Packs/Day Years Used Date Smoking Tobacco: Never Assessed Sex and Gender Information Value Date Recorded Sex Assigned at Not on file Legal Sex Male 2:49 AM STATISTICAL CLERK Gender Identity Not on file Sexual Orientation Not on file documented as of this encounter Plan of Treatment Not on file documented as of this encounter Visit Diagnoses Diagnosis Type II or unspecified type diabetes mellitus 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, not stated as uncontrolled- Primary documented in this encounter Care Teams Security Risk Analyst Relationship Specialty Start Date End Date Cuba Solano MD PCP - General 07/11/09 documented as of this encounter
--- OUTSIDE RECORDS SUMMARY | 2025-01-21 20:37 | XMS_ITS | Encounter Summary ---
Author Organization [facility] Address [address] [facility] Attn: [place] [address] Care Team Providers Care Freelance Recruiter Name Role Phone Cuba Solano MD Primary Care Provider +1 -[phone] Encounter Details Date Type Department Care Team (Late st Contact Info) Description 04/08/2001 Outpatient Historical Donte Borrego MD NO ADDRESS ON FILE Social History Tobacco Use Types Packs/Day Years Used Date Smoking Tobacco: Never Assessed Sex and Gender Information Value Date Recorded Sex Assigned at Not on file Legal Sex Male 2:49 AM SKIDWAY WORKER Gender Identity Not on file Sexual Orientation Not on file documented as of this encounter Plan of Treatment Not on file documented as of this encounter Visit Diagnoses Not on filedocumented in this encounter Care Teams Freelance Recruiter Relationship Specialty Start Date End Date Cuba Solano MD PCP - General 07/11/09 documented as of this encounter
--- OUTSIDE RECORDS SUMMARY | 2025-01-21 20:37 | XMS_ITS | Encounter Summary ---
Author Organization [facility] Address [address] [place] [address] Care Team Providers Care Bureau Director Name Role Phone Cuba Solano MD Primary Care Provider +1 [phone] Encounter Details Date Type Department Care Team (Latest Contact Info) Description 03/29/2006 Outpatient Historical [facility] Family Medicine Angel[place] [address] [address] Keyona [place]cloud, LUCIEN NO ADDRESS ON FILE Unspecified Essential Hypertension (Primary Dx) Social History Tobacco Use Types Packs/Day Years Used Date Smoking Tobacco: Never Assessed Sex and Gender Information Value Date Recorded Sex Assigned at Not on file Legal Sex Male 2:49 AM WOOD CARVER Gender Identity Not on file Sexual Orientation Not on file documented as of this encounter Plan of Treatment Not on file documented as of this encounter Visit Diagnoses Diagnosis Unspecified essential hypertension- Primary documented in this encounter Care Teams Bureau Director Relationship Specialty Start Date End Date Cuba Solano MD PCP - General 07/11/09 documented as of this encounter
--- OUTSIDE RECORDS SUMMARY | 2025-01-21 20:37 | XMS_ITS | Encounter Summary ---
Author Organization [facility] Address [address] [place] [address] Care Team Providers Care Area Safety Manager Name Role Phone Cuba Solano MD Primary Care Provider +1 -[phone] Encounter Details Date Type Department Care Team (Latest Contact Info) Description 11/26/2004 Outpatient Historical [facility] Orthopedics- [address] [place] [place] [address] Ash Lopez III, MD [address] [place] [address] LOC PRIM OSTEOART-L/LEG (Primary Dx) Social History Tobacco Use Types Packs/Day Years Used Date Smoking Tobacco: Never Assessed Sex and Gender Information Value Date Recorded Sex Assigned at Not on file Legal Sex Male 2:49 AM OPERATING ROOM SPECIALIST Gender Identity Not on file Sexual Orientation Not on file documented as of this encounter Plan of Treatment Not on file documented as of this encounter Visit Diagnoses Diagnosis Primary localized osteoarthrosis, lower leg- Primary documented in this encounter Care Teams Area Safety Manager Relationship Specialty Start Date End Date Cuba Solano MD PCP - General 07/11/09 documented as of this encounter
--- OUTSIDE RECORDS SUMMARY | 2025-01-21 20:37 | XMS_ITS | Encounter Summary ---
Author Organization [facility] Address [address] [place] [address] Care Team Providers Care Quality Compliance Consultant Name Role Phone Cuba Solano MD Primary Care Provider +1 -[phone] Encounter Details Date Type Department Care Team (Latest Contact Info) Description 06/18/2006 Outpatient Historical [facility] Cardiovascular Services [address] [place] [address] Keyona Mc[place], LUCIEN NO ADDRESS ON FILE Supraventricular Premature Beats (Primary Dx) Social History Tobacco Use Types Packs/Day Years Used Date Smoking Tobacco: Never Assessed Sex and Gender Information Value Date Recorded Sex Assigned at Not on file Legal Sex Male 2:49 AM WELDING SUPERVISOR Gender Identity Not on file Sexual Orientation Not on file documented as of this encounter Plan of Treatment Not on file documented as of this encounter Visit Diagnoses Diagnosis Supraventricular premature beats- Primary documented in this encounter Care Teams Quality Compliance Consultant Relationship Specialty Start Date End Date Cuba Sloano MD PCP - General 07/11/09 documented as of this encounter
--- NOTE | 2025-01-21 20:38 | ECG_ITS ---
AddThis Test Date: 2025-01-21 Pat Name: Marciano Alonso Department: Room: Gender: Male Butt Presser: : 1965 Requested By: Keiry Green Order Number: [id number] Clarence MD: Norberto Sylvester M.D. Measurements Intervals [place] Rate: 109 P: 0 AK: 0 QRS: -80 QRSD: 111 T: 228 QT: 391 QTc: 527 Interpretive Statements ATRIAL FLUTTER/TACHYCARDIA WITH RAPID VENTRICULAR RESPONSE LOW QRS VOLTAGE [QRS DEFLECTION < 0.5/1.0 mV IN LIMB/CHEST LEADS] POSSIBLE RIGHT VENTRICULAR CONDUCTION DELAY [RSR (QR) IN V1/V2] INFERIOR MYOCARDIAL INFARCTION , PROBABLY OLD [40+ ms Q WAVE AND/OR ST/T ABNORMALITY IN II/aVF] ANTEROLATERAL MYOCARDIAL INFARCTION , OF INDETERMINATE AGE [40+ ms Q WAVE IN I/aVL/V3-V6] Compared to ECG 01/13/2025 22:30:21 Low QRS voltage now present Left-axis deviation no longer present Intraventricular conduction delay no longer present Myocardial infarct finding still present Electronically Signed On 01-22-2025 20:21:47 CDT by Norberto Sylvester M.D. [id number]
--- OUTSIDE RECORDS SUMMARY | 2025-01-21 20:38 | XMS_ITS | Encounter Summary ---
Author Organization [facility] Address [address] [place] [address] Care Team Providers Care Emanations Analysis Technician Name Role Phone Cuba Solano MD Primary Care Provider +1 -[phone] Encounter Details Date Type Department Care Team (Latest Contact Info) Description 11/07/2001 Outpatient [facility] Family Medicine [place] [address] [address] Keyona Mccloud, LUCIEN NO ADDRESS ON FILE HORDEOLUM EXTERNUM (Primary Dx); ALLERGY, UNSPECIFIED Social History Tobacco Use Types Packs/Day Years Used Date Smoking Tobacco: Never Assessed Sex and Gender Information Value Date Recorded Sex Assigned at Not on file Legal Sex Male 2:49 AM ENGINEERING OFFICER Gender Identity Not on file Sexual Orientation Not on file documented as of this encounter Plan of Treatment Not on file documented as of this encounter Visit Diagnoses Diagnosis Hordeolum externum- Primary Allergy, unspecified not elsewhere classified documented in this encounter Care Teams Emanations Analysis Technician Relationship Specialty Start Date End Date Cuba Solano MD PCP - General 07/11/09 documented as of this encounter
--- OUTSIDE RECORDS SUMMARY | 2025-01-21 20:38 | XMS_ITS | Encounter Summary ---
Author Organization [facility] Address [address] [place] [address] Care Team Providers Care Supervisor Felling Bucking Name Role Phone Cuba Solano MD Primary Care Provider +1 -[phone] Encounter Details Date Type Department Care Team (Latest Contact Info) Description 02/01/2003 Outpatient Historical [facility] Family Medicine Angelica [facility] [address] [address] Huey Upton Jr., MD [address] [place] [address] [address] [facility] [address] [place] [address] Benign hypertension (Primary Dx); ALLERGY, UNSPECIFIED Social History Tobacco Use Types Packs/Day Years Used Date Smoking Tobacco: Never Assessed Sex and Gender Information Value Date Recorded Sex Assigned at Not on file Legal Sex Male 2: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 INTEGRATED Gender Identity Not on file Sexual Orientation Not on file documented as of this encounter Plan of Treatment Not on file documented as of this encounter Visit Diagnoses Diagnosis Benign hypertension- Primary Essential hypertension, benign Allergy, unspecified not elsewhere classified documented in this encounter Care Teams Supervisor Felling Bucking Relationship Specialty Start Date End Date Cuba Solano MD PCP - General 07/11/09 documented as of this encounter
--- OUTSIDE RECORDS SUMMARY | 2025-01-21 20:38 | XMS_ITS | Encounter Summary ---
Author Organization [facility] Address [address] [place] [address] Care Team Providers Care Vice President Risk Management Name Role Phone Cuba Solano MD Primary Care Provider +1 -[phone] Encounter Details Date Type Department Care Team (Latest Contact Info) Description 03/03/2002 Outpatient [facility] Family Medicine Angel[place] [address] [address] Donte Borrego MD NO ADDRESS ON FILE OTHER MALAISE AND FATIGUE (Primary Dx); B-COMPLEX DEFIC NEC Social History Tobacco Use Types Packs/Day Years Used Date Smoking Tobacco: Never Assessed Sex and Gender Information Value Date Recorded Sex Assigned at Not on file Legal Sex Male 2:49 AM EMPLOYMENT REPRESENTATIVE Gender Identity Not on file Sexual Orientation Not on file documented as of this encounter Plan of Treatment Not on file documented as of this encounter Visit Diagnoses Diagnosis Other malaise and fatigue- Primary Other B-complex deficiencies documented in this encounter Care Teams Vice President Risk Management Relationship Specialty Start Date End Date Cuba Solano MD PCP - General 07/11/09 documented as of this encounter
--- OUTSIDE RECORDS SUMMARY | 2025-01-21 20:38 | XMS_ITS | Encounter Summary ---
Author Organization [facility] Address [address] [place] [address] Care Team Providers Care Local Sales Associate Name Role Phone Cuba Solano MD Primary Care Provider +1 [phone] Encounter Details Date Type Department Care Team (Latest Contact Info) Description 05/30/2002 Outpatient Historical [facility] Family Medicine [place] [address] [address] Donte Borrego MD NO ADDRESS ON FILE ANEMIA NOS (Primary Dx) Social History Tobacco Use Types Packs/Day Years Used Date Smoking Tobacco: Never Assessed Sex and Gender Information Value Date Recorded Sex Assigned at Not on file Legal Sex Male 2:49 AM TECHNICAL SERVICE SPECIALIST Gender Identity Not on file Sexual Orientation Not on file documented as of this encounter Plan of Treatment Not on file documented as of this encounter Visit Diagnoses Diagnosis Anemia, unspecified- Primary documented in this encounter Care Teams Local Sales Associate Relationship Specialty Start Date End Date Cuba Solano MD PCP - General 07/11/09 documented as of this encounter
--- OUTSIDE RECORDS SUMMARY | 2025-01-21 20:38 | XMS_ITS | Encounter Summary ---
Author Organization [facility] Address [address] [place] [address] Care Team Providers Care Professional Volleyball Player Name Role Phone Cuba Solano MD Primary Care Provider +1 [phone] Encounter Details Date Type Department Care Team (Latest Contact Info) Description 11/30/2001 Outpatient Historical [facility] Family Medicine [place] [address] [address] Donte Borrego MD NO ADDRESS ON FILE ACUTE CONJUNCTIVITIS NOS (Primary Dx); HERPES ZOSTER NOS Social History Tobacco Use Types Packs/Day Years Used Date Smoking Tobacco: Never Assessed Sex and Gender Information Value Date Recorded Sex Assigned at Not on file Legal Sex Male 2:49 AM SEAMLESS HOSIERY KNITTER Gender Identity Not on file Sexual Orientation Not on file documented as of this encounter Plan of Treatment Not on file documented as of this encounter Visit Diagnoses Diagnosis Acute conjunctivitis, unspecified- Primary Herpes zoster 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 documented in this encounter Care Teams Professional Volleyball Player Relationship Specialty Start Date End Date Cuba Solano MD PCP - General 07/11/09 documented as of this encounter
--- OUTSIDE RECORDS SUMMARY | 2025-01-21 20:38 | XMS_ITS | Encounter Summary ---
Author Organization [facility] Address [address] [place] [address] Care Team Providers Care Rougher Merchant Mill Name Role Phone Cuba Solano MD Primary Care Provider +1 [phone] Encounter Details Date Type Department Care Team (Latest Contact Info) Description 10/16/2003 Outpatient Historical [facility] [place] [address] [facility] [facility] [address] [place] [address] Sandro Haines MD [address] [facility] [address] [place] [address] MELENA, BLOOD IN STOOL (Primary Dx) Social History Tobacco Use Types Packs/Day Years Used Date Smoking Tobacco: Never Assessed Sex and Gender Information Value Date Recorded Sex Assigned at Not on file Legal Sex Male 2:49 AM OPTOMETRIST ASSISTANT Gender Identity Not on file Sexual Orientation Not on file documented as of this encounter Plan of Treatment Not on file documented as of this encounter Visit Diagnoses Diagnosis Blood in stool- Primary documented in this encounter Care Teams Rougher Merchant Mill Relationship Specialty Start Date End Date Cuba Solano MD PCP - General 07/11/09 documented as of this encounter
--- OUTSIDE RECORDS SUMMARY | 2025-01-21 20:38 | XMS_ITS | Encounter Summary ---
Author Organization [facility] Address [address] [place] [address] Care Team Providers Care Metal Miner Name Role Phone Cuba Solano MD Primary Care Provider +1 [phone] Encounter Details Date Type Department Care Team (Latest Contact Info) Description 02/09/2000 Outpatient Historical [facility] Family Medicine [place] [id number] [address] Donte Borrego MD NO ADDRESS ON FILE Unspecified suppurative otitis media (Primary Dx); Acute upper respiratory infections of unspecified site Social History Tobacco Use Types Packs/Day Years Used Date Smoking Tobacco: Never Assessed Sex and Gender Information Value Date Recorded Sex Assigned at Not on file Legal Sex Male 2:49 AM KNURLING MACHINE TENDER Gender Identity Not on file Sexual Orientation Not on file documented as of this encounter Plan of Treatment Not on file documented as of this encounter Visit Diagnoses Diagnosis Unspecified suppurative otitis media- Primary Acute upper respiratory infections of unspecified site documented in this encounter Care Teams Metal Miner Relationship Specialty Start Date End Date Cuba Solano MD PCP - General 07/11/09 documented as of this encounter
--- OUTSIDE RECORDS SUMMARY | 2025-01-21 20:38 | XMS_ITS | Encounter Summary ---
Author Organization [facility] Address [address] [place] [address] Care Team Providers Care Locomotive Supervisor Name Role Phone Cuba Solano MD Primary Care Provider +1 [phone] Encounter Details Date Type Department Care Team (Latest Contact Info) Description 06/06/2003 Outpatient Historical [facility] Family Medicine [place] [address]272 [address] [address] Keyona Mccloud, LUCIEN NO ADDRESS ON FILE ACUTE PHARYNGITIS (Primary Dx); ACUTE SINUSITIS NOS Social History Tobacco Use Types Packs/Day Years Used Date Smoking Tobacco: Never Assessed Sex and Gender Information Value Date Recorded Sex Assigned at Not on file Legal 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
--- OUTSIDE RECORDS SUMMARY | 2025-01-21 20:38 | XMS_ITS | Encounter Summary ---
Author Organization [facility] Address [address] [place] [address] Care Team Providers Care Java J2Ee Lead Name Role Phone Cuba Solano MD Primary Care Provider +1 [phone] Encounter Details Date Type Department Care Team (Latest Contact Info) Description 11/18/2001 Outpatient Historical [facility] Family Medicine [place] [address] [address] Donte Borrego MD NO ADDRESS ON FILE CONJUNCTIVITIS NOS (Primary Dx) Social History Tobacco Use Types Packs/Day Years Used Date Smoking Tobacco: Never Assessed Sex and Gender Information Value Date Recorded Sex Assigned at Not on file Legal 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
--- OUTSIDE RECORDS SUMMARY | 2025-01-21 20:38 | XMS_ITS | Encounter Summary ---
Author Organization [facility] Address [address] [place] [address] Care Team Providers Care Tank Setter Helper Name Role Phone Cuba Solano MD Primary Care Provider +1 [phone] Encounter Details Date Type Department Care Team (Latest Contact Info) Description 09/15/2000 Outpatient Historical [facility] Family Medicine [place] [id number] [address] Donte Borrego MD NO ADDRESS ON FILE Unspecified essential hypertension (Primary Dx); Type II or unspecified type diabetes mellitus 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, not stated as uncontrolled Social History Tobacco Use Types Packs/Day Years Used Date Smoking Tobacco: Never Assessed Sex and Gender Information Value Date Recorded Sex Assigned at Not on file 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
--- OUTSIDE RECORDS SUMMARY | 2025-01-21 20:38 | XMS_ITS | Encounter Summary ---
Author Organization [facility] Address [address] [place] [address] Care Team Providers Care Military Exchange Wireless Manager Name Role Phone Cuba Solano MD Primary Care Provider +1 [phone] Encounter Details Date Type Department Care Team (Latest Contact Info) Description 01/25/[address] 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
--- OUTSIDE RECORDS SUMMARY | 2025-01-21 20:38 | XMS_ITS | Encounter Summary ---
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
--- OUTSIDE RECORDS SUMMARY | 2025-01-21 20:38 | XMS_ITS | Encounter Summary ---
Author Organization [facility] Address [address] [place] [address] Care Team Providers Care Speech And Drama Teacher Name Role Phone Cuba Solano MD Primary Care Provider +1 [phone] Encounter Details Date Type Department Care Team (Latest Contact Info) Description 10/16/2003 Outpatient Historical [facility] Endoscopy [address] 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
--- OUTSIDE RECORDS SUMMARY | 2025-01-21 20:38 | XMS_ITS | Encounter Summary ---
Author Organization [facility] Address [address] [place] [address] Care Team Providers Care Card Seller Name Role Phone Cuba Solano MD Primary Care Provider +1 [phone] Encounter Details Date Type Department Care Team (Latest Contact Info) Description 11/12/2003 Outpatient Historical [facility] Family Medicine [place] [address] [address] Donte Borrego MD NO ADDRESS ON FILE URIN TRACT INFECTION NOS (Primary Dx) Social History Tobacco Use Types Packs/Day Years Used Date Smoking Tobacco: Never Assessed Sex and Gender Information Value Date Recorded Sex Assigned at Not on file Legal Sex Male 2:49 AM HOME PARAPROFESSIONAL Gender Identity Not on file Sexual Orientation Not on file documented as of this encounter Plan of Treatment Not on file documented as of this encounter Visit Diagnoses Diagnosis Urinary tract infection, site not specified- Primary documented in this encounter Care Teams Card Seller Relationship Specialty Start Date End Date Cuba Solano MD PCP - General 07/11/09 documented as of this encounter
--- OUTSIDE RECORDS SUMMARY | 2025-01-21 20:38 | XMS_ITS | Encounter Summary ---
Author Organization [facility] Address [address] [place] [address] Care Team Providers Care Order Picker Name Role Phone Cuba Solano MD Primary Care Provider +1 [phone] Encounter Details Date Type Department Care Team (Latest Contact Info) Description 10/02/2002 Outpatient Historical [facility] Family Medicine [place] [address] [address] Donte Borrego MD NO ADDRESS ON FILE ANEMIA NOS (Primary Dx) Social History Tobacco Use Types Packs/Day Years Used Date Smoking Tobacco: Never Assessed Sex and Gender Information Value Date Recorded Sex Assigned at Not on file Legal Sex Male 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
--- OUTSIDE RECORDS SUMMARY | 2025-01-21 20:38 | XMS_ITS | Encounter Summary ---
Author Organization [facility] Address [address] [place] [address] Care Team Providers Care Business Management Intern Name Role Phone Cuba Solano MD Primary Care Provider +1 -[phone] Encounter Details Date Type Department Care Team (Latest Contact Info) Description 01/03/2003 Outpatient Historical [facility] Family Medicine [place] [address] [address] Donte Borrego MD NO ADDRESS ON FILE ACUTE PHARYNGITIS (Primary Dx); ACUTE URI NOS Social History Tobacco Use Types Packs/Day Years Used Date Smoking Tobacco: Never Assessed Sex and Gender Information Value Date Recorded Sex Assigned at Not on file Legal Sex Male 2:49 AM CLERICAL OFFICE Gender Identity Not on file Sexual Orientation Not on file documented as of this encounter Plan of Treatment Not on file documented as of this encounter Visit Diagnoses Diagnosis Acute pharyngitis- Primary Acute upper respiratory infections of unspecified site documented in this encounter Care Teams Business Management Intern Relationship Specialty Start Date End Date Cuba Solano MD PCP - General 07/11/09 documented as of this encounter
--- OUTSIDE RECORDS SUMMARY | 2025-01-21 20:38 | XMS_ITS | Encounter Summary ---
Author Organization [facility] Address [address] [place] [address] Care Team Providers Care Ultimate Hoops Referee Name Role Phone Cuba Solano MD Primary Care Provider +1 -[phone] Encounter Details Date Type Department Care Team (Latest Contact Info) Description 04/10/2002 Outpatient Historical [facility] Family Medicine [place] [address] [address] Donte Borrego MD NO ADDRESS ON FILE HYPERLIPIDEMIA NEC/NOS (Primary Dx) Social History Tobacco Use Types Packs/Day Years Used Date Smoking Tobacco: Never Assessed Sex and Gender Information Value Date Recorded Sex Assigned at Not on file Legal Sex Male 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
--- OUTSIDE RECORDS SUMMARY | 2025-01-21 20:38 | XMS_ITS | Encounter Summary ---
Author Organization [facility] Address [address] [place] [address] Care Team Providers Care Associate Director Regulatory Affairs Name Role Phone Cuba Solano MD Primary Care Provider +1 -[phone] Encounter Details Date Type Department Care Team (Latest Contact Info) Description 08/29/2001 Outpatient Historical [facility] Family Medicine [place] [address] [address] Donte Borrego MD NO ADDRESS ON FILE Benign hypertension (Primary Dx); TACHYCARDIA NOS Social History Tobacco Use Types Packs/Day Years Used Date Smoking Tobacco: Never Assessed Sex and Gender Information Value Date Recorded Sex Assigned at Not on file Legal Sex Male 2:49 AM 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
--- OUTSIDE RECORDS SUMMARY | 2025-01-21 20:38 | XMS_ITS | Encounter Summary ---
Author Organization [facility] Address [address] [place] [address] Care Team Providers Care Rough Rib Grader Name Role Phone Cuba Solano MD Primary Care Provider +1 -[phone] Encounter Details Date Type Department Care Team (Latest Contact Info) Description 02/01/2002 Outpatient Historical [facility] Family Medicine [place] [address] [address] Donte Borrego MD NO ADDRESS ON FILE HYPERTENSION NOS (Primary Dx); LIPOMA NOS; DISEASES OF LIPS Social History Tobacco Use Types Packs/Day Years Used Date Smoking Tobacco: Never Assessed Sex and Gender Information Value Date Recorded Sex Assigned at Not on file Legal Sex Male 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
--- OUTSIDE RECORDS SUMMARY | 2025-01-21 20:38 | XMS_ITS | Encounter Summary ---
Author Organization [facility] Address [address] [place] [address] Care Team Providers Care Community Outreach Manager Name Role Phone Cuba Solano MD Primary Care Provider +1 -[phone] Encounter Details Date Type Department Care Team (Late st Contact Info) Description 09/06/2000 Outpatient Historical [facility] [place] [address] [place] [address] Encounter for long-term (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 of other medications (Primary Dx); Other convulsions Social History Tobacco Use Types Packs/Day Years Used Date Smoking Tobacco: Never Assessed Sex and Gender Information Value Date Recorded Sex Assigned at Not on file Legal Sex Male 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
--- OUTSIDE RECORDS SUMMARY | 2025-01-21 20:38 | XMS_ITS | Encounter Summary ---
Author Organization [facility] Address [address] [place] [address] Care Team Providers Care Plate Washer Name Role Phone Cuba Solano MD Primary Care Provider +1 -[phone] Encounter Details Date Type Department Care Team (Latest Contact Info) Description 02/01/2004 Outpatient Historical [facility] Family Medicine [place] [address] [address] Donte Borrego MD NO ADDRESS ON FILE ANEMIA NOS (Primary Dx); AFTERCARE APERTURE MASK ETCHER USE MEDICATN; GOUT NOS Social History Tobacco Use Types Packs/Day Years Used Date Smoking Tobacco: Never Assessed Sex and Gender Information Value Date Recorded Sex Assigned at Not on file Legal 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
--- OUTSIDE RECORDS SUMMARY | 2025-01-21 20:38 | XMS_ITS | Encounter Summary ---
Author Organization [facility] Address [address] [place] [address] Care Team Providers Care Wirer Passenger Car Name Role Phone Cuba Solano MD Primary Care Provider +1 -[phone] Encounter Details Date Type Department Care Team (Latest Contact Info) Description 07/17/2003 Outpatient Historical [facility] Family Medicine [place] [address] [address] Donte Borrego MD NO ADDRESS ON FILE DERMATITIS NOS (Primary Dx); ALLERGY, UNSPECIFIED Social History Tobacco Use Types Packs/Day Years Used Date Smoking Tobacco: Never Assessed Sex and Gender Information Value Date Recorded Sex Assigned at Not on file Legal 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
--- OUTSIDE RECORDS SUMMARY | 2025-01-21 20:38 | XMS_ITS | Encounter Summary ---
Author Organization [facility] Address [address] [place] [address] Care Team Providers Care Book Shelver Name Role Phone Cuba Solano MD Primary Care Provider +1 [phone] Encounter Details Date Type Department Care Team (Latest Contact Info) Description 03/05/2004 Outpatient Historical [facility] Family Medicine [place] [address] [address] Donte Borrego MD NO ADDRESS ON FILE DIABETES MELLITUS TYPE II UNCONTR UNCOMPL (Primary Dx); ACUTE URI NOS Social History Tobacco Use Types Packs/Day Years Used Date Smoking Tobacco: Never Assessed Sex and Gender Information Value Date Recorded Sex Assigned at Not on file Legal 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
--- OUTSIDE RECORDS SUMMARY | 2025-01-21 20:38 | XMS_ITS | Encounter Summary ---
Author Organization [facility] Address [address] [place] [address] Care Team Providers Care Supervisor Sunglasses Name Role Phone Cuba Solano MD Primary Care Provider +1 [phone] Encounter Details Date Type Department Care Team (Latest Contact Info) Description 09/06/2000 Outpatient Historical [facility] [place] [address] [place] [address] Other convulsions (Primary Dx) Social History Tobacco Use Types Packs/Day Years Used Date Smoking Tobacco: Never Assessed Sex and Gender Information Value Date Recorded Sex Assigned at Not on file Legal Sex Male 2:49 AM SUPERVISOR LOADING Gender Identity Not on file Sexual Orientation Not on file documented as of this encounter Plan of Treatment Not on file documented as of this encounter Visit Diagnoses Diagnosis Other convulsions- Primary documented in this encounter Care Teams Supervisor Sunglasses Relationship Specialty Start Date End Date Cuba Solano MD PCP - General 07/11/09 documented as of this encounter
--- OUTSIDE RECORDS SUMMARY | 2025-01-21 20:38 | XMS_ITS | Encounter Summary ---
Author Organization [facility] Address [address] [place] [address] Care Team Providers Care Head Librarian Name Role Phone Cuba Solano MD Primary Care Provider +1 [phone] Encounter Details Date Type Department Care Team (Latest Contact Info) Description 05/04/2002 Outpatient Historical [facility] Family Medicine Angelica [address] [address] Donte Borrego MD NO ADDRESS ON FILE OTALGIA NOS (Primary Dx) Social History Tobacco Use Types Packs/Day Years Used Date Smoking Tobacco: Never Assessed Sex and Gender Information Value Date Recorded Sex Assigned at Not on file Legal Sex Male 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
--- OUTSIDE RECORDS SUMMARY | 2025-01-21 20:38 | XMS_ITS | Encounter Summary ---
Author Organization [facility] Address [address] [place] [address] Care Team Providers Care Machine Cutter Name Role Phone Cuba Solano MD Primary Care Provider +1 [phone] Encounter Details Date Type Department Care Team (Latest Contact Info) Description 10/02/2003 Outpatient Historical [facility] Family Medicine [place] [address] [address] Keyona Mccloud, LUCIEN NO ADDRESS ON FILE HYPERLIPIDEMIA NEC/NOS (Primary Dx) Social History Tobacco Use Types Packs/Day Years Used Date Smoking Tobacco: Never Assessed Sex and Gender Information Value Date Recorded Sex Assigned at Not on file Legal Sex Male 2:49 AM OPTHALMIC TECH Gender Identity Not on file Sexual Orientation Not on file documented as of this encounter Plan of Treatment Not on file documented as of this encounter Visit Diagnoses Diagnosis Other and unspecified hyperlipidemia- Primary documented in this encounter Care Teams Machine Cutter Relationship Specialty Start Date End Date Cuba Solano MD PCP - General 07/11/09 documented as of this encounter
--- OUTSIDE RECORDS SUMMARY | 2025-01-21 20:38 | XMS_ITS | Encounter Summary ---
Author Organization [facility] Address [address] [place] [address] Care Team Providers Care Divorce Mediator Name Role Phone Cuba Solano MD Primary Care Provider +1 [phone] Encounter Details Date Type Department Care Team (Latest Contact Info) Description 11/01/2002 Outpatient Historical [facility] Family Medicine [place] [address] [address] Donte Borrego MD NO ADDRESS ON FILE OTHER MALAISE AND FATIGUE (Primary Dx) Social History Tobacco Use Types Packs/Day Years Used Date Smoking Tobacco: Never Assessed Sex and Gender Information Value Date Recorded Sex Assigned at Not on file Legal Sex Male 2:49 AM TOURS HOSTESS Gender Identity Not on file Sexual Orientation Not on file documented as of this encounter Plan of Treatment Not on file documented as of this encounter Visit Diagnoses Diagnosis Other malaise and fatigue- Primary documented in this encounter Care Teams Divorce Mediator Relationship Specialty Start Date End Date Cuba Solano MD PCP - General 07/11/09 documented as of this encounter
--- OUTSIDE RECORDS SUMMARY | 2025-01-21 20:38 | XMS_ITS | Encounter Summary ---
Author Organization [facility] Address [address] [place] [address] Care Team Providers Care Physician Internist Name Role Phone Cuba Solano MD Primary Care Provider +1 [phone] Encounter Details Date Type Department Care Team (Late st Contact Info) Description 11/27/2003 Outpatient Historical [facility] Family Medicine [place] [address] [address] Social History Tobacco Use Types Packs/Day Years Used Date Smoking Tobacco: Never Assessed Sex and Gender Information Value Date Recorded Sex Assigned at Not on file Legal Sex Male 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
--- OUTSIDE RECORDS SUMMARY | 2025-01-21 20:38 | XMS_ITS | Encounter Summary ---
Author Organization [facility] Address [address] [place] [address] Care Team Providers Care Sagger Soak Name Role Phone Cuba Solano MD Primary Care Provider +1 [phone] Encounter Details Date Type Department Care Team (Latest Contact Info) Description 05/04/2003 Outpatient Historical [facility] Family Medicine [place] [address] [address] Keyona Mccloud, LUCIEN NO ADDRESS ON FILE ACUTE URI NOS (Primary Dx); PERNICIOUS ANEMIA Social History Tobacco Use Types Packs/Day Years Used Date Smoking Tobacco: Never Assessed Sex and Gender Information Value Date Recorded Sex Assigned at Not on file Legal 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
--- OUTSIDE RECORDS SUMMARY | 2025-01-21 20:38 | XMS_ITS | Encounter Summary ---
Author Organization [facility] Address [address] [place] [address] Care Team Providers Care Tutor Coordinator Name Role Phone Cuba Solano MD Primary Care Provider +1 [phone] Encounter Details Date Type Department Care Team (Latest Contact Info) Description 03/05/2003 Outpatient Historical [facility] Family Medicine [place] [address] [address] Keyona Mccloud, LUCIEN NO ADDRESS ON FILE OTHER MALAISE AND FATIGUE (Primary Dx) Social History Tobacco Use Types Packs/Day Years Used Date Smoking Tobacco: Never Assessed Sex and Gender Information Value Date Recorded Sex Assigned at Not on file Legal Sex Male 2:49 AM FAMILY PRACTICE NURSE PRACTITIONER Gender Identity Not on file Sexual Orientation Not on file documented as of this encounter Plan of Treatment Not on file documented as of this encounter Visit Diagnoses Diagnosis Other malaise and fatigue- Primary documented in this encounter Care Teams Tutor Coordinator Relationship Specialty Start Date End Date Cuba Solano MD PCP - General 07/11/09 documented as of this encounter
--- OUTSIDE RECORDS SUMMARY | 2025-01-21 20:38 | XMS_ITS | Encounter Summary ---
Author Organization [facility] Address [address] [place] [address] Care Team Providers Care Corn Cooker Name Role Phone Cuba Solano MD Primary Care Provider +1 [phone] Encounter Details Date Type Department Care Team (Latest Contact Info) Description 05/17/2003 Outpatient Historical [facility] Family Medicine [place] [address] [address] Keyona Mccloud, LUCIEN NO ADDRESS ON FILE HYPERLIPIDEMIA NEC/NOS (Primary Dx); VITAMIN B DEFICIENCY NOS; AFTERCARE USP USE MEDICATN Social History Tobacco Use Types Packs/Day Years Used Date Smoking Tobacco: Never Assessed Sex and Gender Information Value Date Recorded Sex Assigned at Not on file 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
--- OUTSIDE RECORDS SUMMARY | 2025-01-21 20:38 | XMS_ITS | Encounter Summary ---
Author Organization [facility] Address [address] [place] [address] Care Team Providers Care Exhibitions And Collections Manager Name Role Phone Cuba Solano MD Primary Care Provider +1 [phone] Encounter Details Date Type Department Care Team (Latest Contact Info) Description 08/09/2002 Outpatient Historical [facility] Family Medicine [place] [address] [address] Donte Borrego MD NO ADDRESS ON FILE Benign hypertension (Primary Dx); ALLERGY, UNSPECIFIED Social History Tobacco Use Types Packs/Day Years Used Date Smoking Tobacco: Never Assessed Sex and Gender Information Value Date Recorded Sex Assigned at Not on file Legal Sex Male 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
--- OUTSIDE RECORDS SUMMARY | 2025-01-21 20:38 | XMS_ITS | Encounter Summary ---
Author Organization [facility] Address [address] [place] [address] Care Team Providers Care Trestleman Name Role Phone Cuba Solano MD Primary Care Provider +1 [phone] Encounter Details Date Type Department Care Team (Latest Contact Info) Description 12/04/2003 Outpatient Historical [facility] Family Medicine [place] [address] [address] Donte Borrego MD NO ADDRESS ON FILE URIN TRACT INFECTION NOS (Primary Dx); ANEMIA NOS; UNSPEC CONSTIPATION Social History Tobacco Use Types Packs/Day Years Used Date Smoking Tobacco: Never Assessed Sex and Gender Information Value Date Recorded Sex Assigned at Not on file Legal Sex Male 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
--- OUTSIDE RECORDS SUMMARY | 2025-01-21 20:38 | XMS_ITS | Encounter Summary ---
Author Organization [facility] Address [address] [facility] Attn: [place] [address] Care Team Providers Care Enrobing Machine Feeder Name Role Phone Cuba Solano MD Primary Care Provider +1 [phone] Encounter Details Date Type Department Care Team (Late st Contact Info) Description 11/22/2000 Outpatient Historical Donte Borrego MD NO ADDRESS ON FILE Social History Tobacco Use Types Packs/Day Years Used Date Smoking Tobacco: Never Assessed Sex and Gender Information Value Date Recorded Sex Assigned at Not on file Legal Sex Male 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
--- OUTSIDE RECORDS SUMMARY | 2025-01-21 20:38 | XMS_ITS | Encounter Summary ---
Author Organization [facility] Address [address] [place] [address] Care Team Providers Care Photo Equipment Technician Name Role Phone Cuba Solano MD Primary Care Provider +1 [phone] Encounter Details Date Type Department Care Team (Latest Contact Info) Description 01/10/2004 Outpatient Historical [facility] Family Medicine [place] [address] [address] Donte Borrego MD NO ADDRESS ON FILE Pain in limb (Primary Dx); JOINT PAIN-ANKLE Social History Tobacco Use Types Packs/Day Years Used Date Smoking Tobacco: Never Assessed Sex and Gender Information Value Date Recorded Sex Assigned at Not on file Legal Sex Male 2: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
--- OUTSIDE RECORDS SUMMARY | 2025-01-21 20:38 | XMS_ITS | Encounter Summary ---
Author Organization [facility] Address [address] [place] [address] Care Team Providers Care Outside Contractor Sales Name Role Phone Cuba Solano MD Primary Care Provider +1 [phone] Encounter Details Date Type Department Care Team (Latest Contact Info) Description 11/02/2003 Outpatient Historical [facility] Family Medicine [place] [address] [address] Donte Borrego MD NO ADDRESS ON FILE HYPERTENSION NOS (Primary Dx) Social History Tobacco Use Types Packs/Day Years Used Date Smoking Tobacco: Never Assessed Sex and Gender Information Value Date Recorded Sex Assigned at Not on file Legal Sex Male 2:49 AM SERVICE DESK AGENT Gender Identity Not on file Sexual Orientation Not on file documented as of this encounter Plan of Treatment Not on file documented as of this encounter Visit Diagnoses Diagnosis Unspecified essential hypertension- Primary documented in this encounter Care Teams Outside Contractor Sales Relationship Specialty Start Date End Date Cuba Solano MD PCP - General 07/11/09 documented as of this encounter
--- OUTSIDE RECORDS SUMMARY | 2025-01-21 20:38 | XMS_ITS | Encounter Summary ---
Author Organization [facility] Address [address] [place] [address] Care Team Providers Care System Developer Associate Manager Name Role Phone Cuba Solano MD Primary Care Provider +1 [phone] Encounter Details Date Type Department Care Team (Latest Contact Info) Description 10/03/2001 Outpatient Historical [facility] Family Medicine [place] [address] [address] Donte Borrego MD NO ADDRESS ON FILE HYPERTENSION NOS (Primary Dx); ALLERGY, UNSPECIFIED; AMPUT ABOVE KNEE, UNILAT; OSTEOARTHROS NOS-UNSPEC Social History Tobacco Use Types Packs/Day Years Used Date Smoking Tobacco: Never Assessed Sex and Gender Information Value Date Recorded Sex Assigned at Not on file Legal Sex Male 2: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
--- OUTSIDE RECORDS SUMMARY | 2025-01-21 20:38 | XMS_ITS | Encounter Summary ---
Author Organization [facility] Address [address] [place] [address] Care Team Providers Care Crnp Name Role Phone Cuba Solano MD Primary Care Provider +1 -[phone] Encounter Details Date Type Department Care Team (Latest Contact Info) Description 09/11/2003 Outpatient [facility] Family Medicine [place] [address] [address] Keyona Mccloud, LUCIEN NO ADDRESS ON FILE ALLERGY, UNSPECIFIED (Primary Dx); DERMATITIS NOS; HYPERTENSION NOS; HYPERLIPIDEMIA NEC/NOS Social History Tobacco Use Types Packs/Day Years Used Date Smoking Tobacco: Never Assessed Sex and Gender Information Value Date Recorded Sex Assigned at Not on file Legal Sex Male 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
--- OUTSIDE RECORDS SUMMARY | 2025-01-21 20:38 | XMS_ITS | Encounter Summary ---
Author Organization [facility] Address [address] [place] [address] Care Team Providers Care Hydroelectric Plant Operator Name Role Phone Cuba Solano MD Primary Care Provider +1 -[phone] Encounter Details Date Type Department Care Team (Latest Contact Info) Description 05/17/2003 Outpatient Historical [facility] Family Medicine [place] [address] [address] Keyona Mccloud, LUCIEN NO ADDRESS ON FILE AFTERCARE PEN RIDER USE MEDICATN (Primary Dx) Social History Tobacco Use Types Packs/Day Years Used Date Smoking Tobacco: Never Assessed Sex and Gender Information Value Date Recorded Sex Assigned at Not on file Legal Sex Male 2:49 AM SERVICE LEARNING COORDINATOR Gender Identity Not on file Sexual Orientation Not on file documented as of this encounter Plan of Treatment Not on file documented as of this encounter Visit Diagnoses Diagnosis Encounter for long-term (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 of other medications- Primary documented in this encounter Care Teams Hydroelectric Plant Operator Relationship Specialty Start Date End Date Cuba Solano MD PCP - General 07/11/09 documented as of this encounter
--- OUTSIDE RECORDS SUMMARY | 2025-01-21 20:38 | XMS_ITS | Encounter Summary ---
Author Organization [facility] Address [address] [place] [address] Care Team Providers Care Rounding Machine Operator Name Role Phone Cuba Solano MD Primary Care Provider +1 [phone] Encounter Details Date Type Department Care Team (Latest Contact Info) Description 09/04/2003 Outpatient Historical [facility] Family Medicine [place] [facility] [address] [address] Huey Upton Jr., MD [address] [place] [address] [address] [facility] [address] [place] [address] OTHER MALAISE AND FATIGUE (Primary Dx) Social History Tobacco Use Types Packs/Day Years Used Date Smoking Tobacco: Never Assessed Sex and Gender Information Value Date Recorded Sex Assigned at Not on file Legal Sex Male 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
--- OUTSIDE RECORDS SUMMARY | 2025-01-21 20:38 | XMS_ITS | Encounter Summary ---
Author Organization [facility] Address [address] [place] [address] Care Team Providers Care Family Medicine Physician Assistant Name Role Phone Cuba Solano MD Primary Care Provider +1 [phone] Encounter Details Date Type Department Care Team (Latest Contact Info) Description 04/04/2003 Outpatient Historical [facility] Family Medicine [place] [address] [address] Keyona Mccloud, LUCIEN NO ADDRESS ON FILE OTHER MALAISE AND FATIGUE (Primary Dx) Social History Tobacco Use Types Packs/Day Years Used Date Smoking Tobacco: Never Assessed Sex and Gender Information Value Date Recorded Sex Assigned at Not on file Legal Sex Male 2:49 AM SKIVER SOCK LININGS Gender Identity Not on file Sexual Orientation Not on file documented as of this encounter Plan of Treatment Not on file documented as of this encounter Visit Diagnoses Diagnosis Other malaise and fatigue- Primary documented in this encounter Care Teams Family Medicine Physician Assistant Relationship Specialty Start Date End Date Cuba Solano MD PCP - General 07/11/09 documented as of this encounter
--- OUTSIDE RECORDS SUMMARY | 2025-01-21 20:38 | XMS_ITS | Encounter Summary ---
Author Organization [facility] Address [address] [place] [address] Care Team Providers Care Saturator Tender Name Role Phone Cuba Solano MD Primary Care Provider +1 [phone] Encounter Details Date Type Department Care Team (Latest Contact Info) Description 08/03/2002 Outpatient Historical [facility] Family Medicine [place] [id number] [address] [address] Donte Borrego MD NO ADDRESS ON FILE OTHER MALAISE AND FATIGUE (Primary Dx) Social History Tobacco Use Types Packs/Day Years Used Date Smoking Tobacco: Never Assessed Sex and Gender Information Value Date Recorded Sex Assigned at Not on file Legal Sex Male 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
--- OUTSIDE RECORDS SUMMARY | 2025-01-21 20:38 | XMS_ITS | Encounter Summary ---
Author Organization [facility] Address [address] [facility] Attn: [place] [address] Care Team Providers Care Streetcar Motorman Name Role Phone Cuba Solano MD Primary Care Provider +1 [phone] Encounter Details Date Type Department Care Team (Late st Contact Info) Description 10/03/2001 Outpatient Historical Donte Borrego MD NO ADDRESS ON FILE Social History Tobacco Use Types Packs/Day Years Used Date Smoking Tobacco: Never Assessed Sex and Gender Information Value Date Recorded Sex Assigned at Not on file Legal Sex Male 2:49 AM BLISTER RUST 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
--- OUTSIDE RECORDS SUMMARY | 2025-01-21 20:38 | XMS_ITS | Encounter Summary ---
Author Organization [facility] Address [address] [facility] Attn: [place] [address] Care Team Providers Care Pipeline Superintendent Division Name Role Phone Cuba Solano MD Primary Care Provider +1 [phone] Encounter Details Date Type Department Care Team (Late st Contact Info) Description 09/15/2000 Outpatient Historical Donte Borrego MD NO ADDRESS ON FILE Social History Tobacco Use Types Packs/Day Years Used Date Smoking Tobacco: Never Assessed Sex and Gender Information Value Date Recorded Sex Assigned at Not on file Legal Sex Male 2:49 AM HEM INSPECTOR Gender Identity Not on file Sexual Orientation Not on file documented as of this encounter Plan of Treatment Not on file documented as of this encounter Visit Diagnoses Not on filedocumented in this encounter Care Teams Pipeline Superintendent Division Relationship Specialty Start Date End Date Cuba Solano MD PCP - General 07/11/09 documented as of this encounter
--- OUTSIDE RECORDS SUMMARY | 2025-01-21 20:38 | XMS_ITS | Encounter Summary ---
Author Organization [facility] Address [address] [place] [address] Care Team Providers Care Community Marketing Coordinator Name Role Phone Cuba Solano MD Primary Care Provider +1 -[phone] Encounter Details Date Type Department Care Team (Latest Contact Info) Description 07/02/2003 Outpatient Historical [facility] Family Medicine [place] [id number] [address] [address] Keyona Mccloud, INSPECTOR POISING NO ADDRESS ON FILE ALLERGY, UNSPECIFIED (Primary Dx) Social History Tobacco Use Types Packs/Day Years Used Date Smoking Tobacco: Never Assessed Sex and Gender Information Value Date Recorded Sex Assigned at Not on file Legal Sex Male 2:49 AM CHAPTER RELATIONS ADMINISTRATOR Gender Identity Not on file Sexual Orientation Not on file documented as of this encounter Plan of Treatment Not on file documented as of this encounter Visit Diagnoses Diagnosis Allergy, unspecified not elsewhere classified- Primary documented in this encounter Care Teams Community Marketing Coordinator Relationship Specialty Start Date End Date Cuba Solano MD PCP - General 07/11/09 documented as of this encounter
--- OUTSIDE RECORDS SUMMARY | 2025-01-21 20:38 | XMS_ITS | Encounter Summary ---
Author Organization [facility] Address [address] [place] [address] Care Team Providers Care Consulting Marine Engineer Name Role Phone Cuba Solano MD Primary Care Provider +1 [phone] Encounter Details Date Type Department Care Team (Latest Contact Info) Description 01/03/2004 Outpatient Historical [facility] Family Medicine [place] [address] [address] Keyona Mccloud, LUCIEN NO ADDRESS ON FILE ANEMIA NOS (Primary Dx) Social History Tobacco Use Types Packs/Day Years Used Date Smoking Tobacco: Never Assessed Sex and Gender Information Value Date Recorded Sex Assigned at Not on file Legal Sex Male 2:49 AM GALLEY HAND Gender Identity Not on file Sexual Orientation Not on file documented as of this encounter Plan of Treatment Not on file documented as of this encounter Visit Diagnoses Diagnosis Anemia, unspecified- Primary documented in this encounter Care Teams Consulting Marine Engineer Relationship Specialty Start Date End Date Cuba Solano MD PCP - General 07/11/09 documented as of this encounter
--- OUTSIDE RECORDS SUMMARY | 2025-01-21 20:38 | XMS_ITS | Encounter Summary ---
Author Organization [facility] Address [address] [place] [address] Care Team Providers Care Casing Tester Name Role Phone Cuba Solano MD Primary Care Provider +1 [phone] Encounter Details Date Type Department Care Team (Latest Contact Info) Description 11/14/2001 Outpatient [facility] Family Medicine [place] [id number] [address] Keyona Mccloud, LUCIEN NO ADDRESS ON FILE HORDEOLUM EXTERNUM (Primary Dx); ACUTE URI NOS Social History Tobacco Use Types Packs/Day Years Used Date Smoking Tobacco: Never Assessed Sex and Gender Information Value Date Recorded Sex Assigned at Not on file Legal Sex Male 2:49 AM LPC Gender Identity Not on file Sexual Orientation Not on file documented as of this encounter Plan of Treatment Not on file documented as of this encounter Visit Diagnoses Diagnosis Hordeolum externum- Primary Acute upper respiratory infections of unspecified site documented in this encounter Care Teams Casing Tester Relationship Specialty Start Date End Date Cuba Solano MD PCP - General 07/11/09 documented as of this encounter
--- OUTSIDE RECORDS SUMMARY | 2025-01-21 20:38 | XMS_ITS | Encounter Summary ---
Author Organization [facility] Address [address] [place] [address] Care Team Providers Care Residential Team Leader Name Role Phone Cuba Solano MD Primary Care Provider +1 [phone] Encounter Details Date Type Department Care Team (Latest Contact Info) Description 03/14/2004 Outpatient Historical [facility] [address] [place] [address] Kvng Kilpatrick MD NO ADDRESS ON FILE HYPERSOMNI W SLEEP APNEA (Primary Dx) Social History Tobacco Use Types Packs/Day Years Used Date Smoking Tobacco: Never Assessed Sex and Gender Information Value Date Recorded Sex Assigned at Not on file Legal Sex Male 2:49 AM GRANTS MANAGER Gender Identity Not on file Sexual Orientation Not on file documented as of this encounter Plan of Treatment Not on file documented as of this encounter Visit Diagnoses Diagnosis Hypersomnia with sleep apnea, unspecified- Primary documented in this encounter Care Teams Residential Team Leader Relationship Specialty Start Date End Date Cuba Solano MD PCP - General 07/11/09 documented as of this encounter
--- OUTSIDE RECORDS SUMMARY | 2025-01-21 20:38 | XMS_ITS | Encounter Summary ---
Author Organization [facility] Address [address] [place] [address] Care Team Providers Care Criminal Court Judge Name Role Phone Cuba Solano MD Primary Care Provider +1 [phone] Encounter Details Date Type Department Care Team (Latest Contact Info) Description 12/25/2003 Outpatient Historical [facility] Family Medicine [place] [address] [address] Donte Borrego MD NO ADDRESS ON FILE EDEMA (Primary Dx); APNEA; POLYP OF NASAL CAVITY Social History Tobacco Use Types Packs/Day Years Used Date Smoking Tobacco: Never Assessed Sex and Gender Information Value Date Recorded Sex Assigned at Not on file Legal 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
--- OUTSIDE RECORDS SUMMARY | 2025-01-21 20:38 | XMS_ITS | Encounter Summary ---
Author Organization [facility] Address [address] [place] [address] Care Team Providers Care Hog Cutter Name Role Phone Cuba Solano MD Primary Care Provider +1 -[phone] Encounter Details Date Type Department Care Team (Latest Contact Info) Description 04/13/2002 Outpatient Historical [facility] Family Medicine [place] [address] [address] Donte Borrego MD NO ADDRESS ON FILE ACUTE URI NOS (Primary Dx) Social History Tobacco Use Types Packs/Day Years Used Date Smoking Tobacco: Never Assessed Sex and Gender Information Value Date Recorded Sex Assigned at Not on file Legal Sex Male 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
--- OUTSIDE RECORDS SUMMARY | 2025-01-21 20:38 | XMS_ITS | Encounter Summary ---
Author Organization [facility] Address [address] [place] [address] Care Team Providers Care Road Production General Manager Name Role Phone Cuba Solano MD Primary Care Provider +1 -[phone] Encounter Details Date Type Department Care Team (Latest Contact Info) Description 04/10/2002 Outpatient [facility] Family Medicine [place] [address] [address] Donte Borrego MD NO ADDRESS ON FILE B-COMPLEX DEFIC NEC (Primary Dx); OTHER MALAISE AND FATIGUE; HYPERLIPIDEMIA NEC/NOS Social History Tobacco Use Types Packs/Day Years Used Date Smoking Tobacco: Never Assessed Sex and Gender Information Value Date Recorded Sex Assigned at Not on file 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
--- OUTSIDE RECORDS SUMMARY | 2025-01-21 20:38 | XMS_ITS | Encounter Summary ---
Author Organization [facility] Address [address] [place] [address] Care Team Providers Care Poultry Hatchery Supervisor Name Role Phone Cuba Solano MD Primary Care Provider +1 -[phone] Encounter Details Date Type Department Care Team (Latest Contact Info) Description 11/02/2003 Outpatient Historical [facility] Family Medicine [place] [address] [address] Donte Borrego MD NO ADDRESS ON FILE ANEMIA NOS (Primary Dx) Social History Tobacco Use Types Packs/Day Years Used Date Smoking Tobacco: Never Assessed Sex and Gender Information Value Date Recorded Sex Assigned at Not on file Legal Sex Male 2:49 AM PLUMBER Gender Identity Not on file Sexual Orientation Not on file documented as of this encounter Plan of Treatment Not on file documented as of this encounter Visit Diagnoses Diagnosis Anemia, unspecified- Primary documented in this encounter Care Teams Poultry Hatchery Supervisor Relationship Specialty Start Date End Date Cuba Solano MD PCP - General 07/11/09 documented as of this encounter
--- OUTSIDE RECORDS SUMMARY | 2025-01-21 20:38 | XMS_ITS | Encounter Summary ---
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
--- OUTSIDE RECORDS SUMMARY | 2025-01-21 20:38 | XMS_ITS | Encounter Summary ---
Author Organization [facility] Address [address] [place] [address] Care Team Providers Care Keno Clerk Name Role Phone Cuba Solano MD Primary Care Provider +1 -[phone] Encounter Details Date Type Department Care Team (Latest Contact Info) Description 04/07/2000 Outpatient Historical [facility] Family Medicine [place] [id number] [address] Donte Borrego MD NO ADDRESS ON FILE Unspecified essential hypertension (Primary Dx); Unspecified suppurative otitis media; Nasal/sinus dis NEC Social History Tobacco Use Types Packs/Day Years Used Date Smoking Tobacco: Never Assessed Sex and Gender Information Value Date Recorded Sex Assigned at Not on file Legal 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
--- OUTSIDE RECORDS SUMMARY | 2025-01-21 20:38 | XMS_ITS | Encounter Summary ---
Author Organization [facility] Address [address] [place] [address] Care Team Providers Care Program Manager Name Role Phone Cuba Solano MD Primary Care Provider +1 -[phone] Encounter Details Date Type Department Care Team (Latest Contact Info) Description 09/14/2001 Outpatient Historical [facility] Family Medicine [place] [address] [address] Donte Borrego MD NO ADDRESS ON FILE UNSPECIFIED VIRAL INFECTION (Primary Dx); ALLERGY, UNSPECIFIED; HYPERTENSION NOS; TACHYCARDIA NOS Social History Tobacco Use Types Packs/Day Years Used Date Smoking Tobacco: Never Assessed Sex and Gender Information Value Date Recorded Sex Assigned at Not on file Legal Sex Male 2: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
--- OUTSIDE RECORDS SUMMARY | 2025-01-21 20:38 | XMS_ITS | Encounter Summary ---
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
--- OUTSIDE RECORDS SUMMARY | 2025-01-21 20:38 | XMS_ITS | Encounter Summary ---
Author Organization [facility] Address [address] [place] [address] Care Team Providers Care Record Tester Name Role Phone Cuba Solano MD Primary Care Provider +1 -[phone] Encounter Details Date Type Department Care Team (Latest Contact Info) Description 10/04/2000 Outpatient Historical [facility] Family Medicine [place] [address] [address] Donte Borrego MD NO ADDRESS ON FILE Other and unspecified hyperlipidemia (Primary Dx); Unspecified essential hypertension; Allergy, unspecified not elsewhere classified; Actinic keratosis Social History Tobacco Use Types Packs/Day Years Used Date Smoking Tobacco: Never Assessed Sex and Gender Information Value Date Recorded Sex Assigned at Not on file Legal Sex Male 2:49 AM PT SKILLED Gender Identity Not on file Sexual Orientation Not on file documented as of this encounter Plan of Treatment Not on file documented as of this encounter Visit Diagnoses Diagnosis Other and unspecified hyperlipidemia- Primary Unspecified essential hypertension Allergy, unspecified not elsewhere classified Actinic keratosis documented in this encounter Care Teams Record Tester Relationship Specialty Start Date End Date Cuba Solano MD PCP - General 07/11/09 documented as of this encounter
--- OUTSIDE RECORDS SUMMARY | 2025-01-21 20:38 | XMS_ITS | Encounter Summary ---
Author Organization [facility] Address [address] [place] [address] Care Team Providers Care Wig Stylist Name Role Phone Cuba Solano MD Primary Care Provider +1 -[phone] Encounter Details Date Type Department Care Team (Latest Contact Info) Description 08/07/2003 Outpatient Historical [facility] Family Medicine [place] [address] [address] Donte Borrego MD NO ADDRESS ON FILE LUPUS ERYTHEMATOSUS (Primary Dx); ALLERGY, UNSPECIFIED Social History Tobacco Use Types Packs/Day Years Used Date Smoking Tobacco: Never Assessed Sex and Gender Information Value Date Recorded Sex Assigned at Not on file Legal Sex Male 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
--- OUTSIDE RECORDS SUMMARY | 2025-01-21 20:38 | XMS_ITS | Encounter Summary ---
Author Organization [facility] Address [address] [place] [address] Care Team Providers Care Dry House Tender Name Role Phone Cuba Solano MD Primary Care Provider +1 -[phone] Encounter Details Date Type Department Care Team (Latest Contact Info) Description 10/23/2003 Outpatient Historical [facility] Family Medicine [place] [address] [address] Donte Borrego MD NO ADDRESS ON FILE TOBACCO USE DISORDER (Primary Dx); ALLERGY, UNSPECIFIED Social History Tobacco Use Types Packs/Day Years Used Date Smoking Tobacco: Never Assessed Sex and Gender Information Value Date Recorded Sex Assigned at Not on file Legal 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
--- OUTSIDE RECORDS SUMMARY | 2025-01-21 20:38 | XMS_ITS | Encounter Summary ---
Author Organization [facility] Address [address] [place] [address] Care Team Providers Care Automotive Service Writer Name Role Phone Cuba Solano MD Primary Care Provider +1 -[phone] Encounter Details Date Type Department Care Team (Latest Contact Info) Description 07/07/2000 Outpatient Historical [facility] Family Medicine [place] [address] [address] Donte Borrego MD NO ADDRESS ON FILE Unspecified essential hypertension (Primary Dx); Obesity, unspecified; Allergy, unspecified not elsewhere classified; Actinic keratosis Social History Tobacco Use Types Packs/Day Years Used Date Smoking Tobacco: Never Assessed Sex and Gender Information Value Date Recorded Sex Assigned at Not on file Legal 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
--- OUTSIDE RECORDS SUMMARY | 2025-01-21 20:38 | XMS_ITS | Encounter Summary ---
Author Organization [facility] Address [address] [facility] Attn: [place] [address] Care Team Providers Care Data Visualization Developer Name Role Phone Cuba Solano MD Primary Care Provider +1 [phone] Encounter Details Date Type Department Care Team (Late st Contact Info) Description 05/31/2001 Outpatient Historical Donte Borrego MD NO ADDRESS ON FILE Social History Tobacco Use Types Packs/Day Years Used Date Smoking Tobacco: Never Assessed Sex and Gender Information Value Date Recorded Sex Assigned at Not on file Legal 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
--- OUTSIDE RECORDS SUMMARY | 2025-01-21 20:38 | XMS_ITS | Encounter Summary ---
Author Organization [facility] Address [address] [place] [address] Care Team Providers Care Federal Appellate Law Clerk Name Role Phone Cuba Solano MD Primary Care Provider +1 [phone] Encounter Details Date Type Department Care Team (Latest Contact Info) Description 02/25/2004 Outpatient Historical [facility] Family Medicine [place] [id number] [address] Keyona Mccloud FNP NO ADDRESS ON FILE DIABETES MELLITUS TYPE II-UNCOMPL (CMS/HCC) (Primary Dx); ACUTE URI NOS Social History Tobacco Use Types Packs/Day Years Used Date Smoking Tobacco: Never Assessed Sex and Gender Information Value Date Recorded Sex Assigned at Not on file 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
--- OUTSIDE RECORDS SUMMARY | 2025-01-21 20:38 | XMS_ITS | Encounter Summary ---
Author Organization [facility] Address [address] [place] [address] Care Team Providers Care Dog Or Horse Racing Official Name Role Phone Cuba Solano MD Primary Care Provider +1 [phone] Encounter Details Date Type Department Care Team (Latest Contact Info) Description 01/05/2003 Outpatient Historical [facility] [address] [place] [address] [place] [address] Non-Staff, Physician NO ADDRESS ON FILE PAIN IN LIMB (Primary Dx) Social History Tobacco Use Types Packs/Day Years Used Date Smoking Tobacco: Never Assessed Sex and Gender Information Value Date Recorded Sex Assigned at Not on file Legal Sex Male 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
--- OUTSIDE RECORDS SUMMARY | 2025-01-21 20:38 | XMS_ITS | Encounter Summary ---
Author Organization [facility] Address [address] [place] [address] Care Team Providers Care Filling Mixer Name Role Phone Cuba Solano MD Primary Care Provider +1 [phone] Encounter Details Date Type Department Care Team (Latest Contact Info) Description 07/03/2002 Outpatient Historical [facility] Family Medicine [place] [id number] [address] Donte Borrego MD NO ADDRESS ON FILE OTHER MALAISE AND FATIGUE (Primary Dx) Social History Tobacco Use Types Packs/Day Years Used Date Smoking Tobacco: Never Assessed Sex and Gender Information Value Date Recorded Sex Assigned at Not on file Legal Sex Male 2:49 AM STRETCHER AND DRIER Gender Identity Not on file Sexual Orientation Not on file documented as of this encounter Plan of Treatment Not on file documented as of this encounter Visit Diagnoses Diagnosis Other malaise and fatigue- Primary documented in this encounter Care Teams Filling Mixer Relationship Specialty Start Date End Date Cuba Solano MD PCP - General 07/11/09 documented as of this encounter
--- OUTSIDE RECORDS SUMMARY | 2025-01-21 20:38 | XMS_ITS | Encounter Summary ---
Author Organization [facility] Address [address] [place] [address] Care Team Providers Care Boot And Shoe Repairman Name Role Phone Cuba Solano MD Primary Care Provider +1 [phone] Encounter Details Date Type Department Care Team (Latest Contact Info) Description 05/04/2002 Outpatient Historical [facility] Family Medicine [place] [id number] [address] [address] Donte Borrego MD NO ADDRESS ON FILE Benign hypertension (Primary Dx); OTALGIA NOS; INFEC OTITIS EXTERNA NOS Social History Tobacco Use Types Packs/Day Years Used Date Smoking Tobacco: Never Assessed Sex and Gender Information Value Date Recorded Sex Assigned at Not on file Legal Sex Male 2: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
--- OUTSIDE RECORDS SUMMARY | 2025-01-21 20:38 | XMS_ITS | Encounter Summary ---
Author Organization [facility] Address [address] [place] [address] Care Team Providers Care Sales Office Manager Name Role Phone Cuba Solano MD Primary Care Provider +1 [phone] Encounter Details Date Type Department Care Team (Latest Contact Info) Description 10/30/2002 Outpatient Historical [facility] Family Medicine [place] [address] [address] Donte Borrego MD NO ADDRESS ON FILE HYPERLIPIDEMIA NEC/NOS (Primary Dx); HYPERTENSION NOS; ALLERGY, UNSPECIFIED Social History Tobacco Use Types Packs/Day Years Used Date Smoking Tobacco: Never Assessed Sex and Gender Information Value Date Recorded Sex Assigned at Not on file Legal Sex Male 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
--- OUTSIDE RECORDS SUMMARY | 2025-01-21 20:38 | XMS_ITS | Encounter Summary ---
Author Organization [facility] Address [address] [place] [address] Care Team Providers Care Manager Warehouse Name Role Phone Cuba Solano MD Primary Care Provider +1 [phone] Encounter Details Date Type Department Care Team (Latest Contact Info) Description 09/01/2002 Outpatient Historical [facility] Family Medicine [place] [address] [address] Donte Borrego MD NO ADDRESS ON FILE ANEMIA NOS (Primary Dx) Social History Tobacco Use Types Packs/Day Years Used Date Smoking Tobacco: Never Assessed Sex and Gender Information Value Date Recorded Sex Assigned at Not on file Legal Sex Male 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
--- OUTSIDE RECORDS SUMMARY | 2025-01-21 20:38 | XMS_ITS | Encounter Summary ---
Author Organization [facility] Address [address] [place] [address] Care Team Providers Care Building Components Designer Name Role Phone Cuba Solano MD Primary Care Provider +1 [phone] Encounter Details Date Type Department Care Team (Latest Contact Info) Description 05/30/2002 Outpatient Historical [facility] Family Medicine [place] [address] [address] Donte Borrego MD NO ADDRESS ON FILE ANEMIA NOS (Primary Dx) Social History Tobacco Use Types Packs/Day Years Used Date Smoking Tobacco: Never Assessed Sex and Gender Information Value Date Recorded Sex Assigned at Not on file Legal Sex Male 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
--- OUTSIDE RECORDS SUMMARY | 2025-01-21 20:38 | XMS_ITS | Encounter Summary ---
Author Organization [facility] Address [address] [place] [address] Care Team Providers Care Baby Attendant Name Role Phone Cuba Solano MD Primary Care Provider +1 [phone] Encounter Details Date Type Department Care Team (Latest Contact Info) Description 12/04/2003 Outpatient Historical [facility] Family Medicine [place] [address] [address] Donte Borrego MD NO ADDRESS ON FILE URIN TRACT INFECTION NOS (Primary Dx) Social History Tobacco Use Types Packs/Day Years Used Date Smoking Tobacco: Never Assessed Sex and Gender Information Value Date Recorded Sex Assigned at Not on file Legal 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
--- OUTSIDE RECORDS SUMMARY | 2025-01-21 20:38 | XMS_ITS | Encounter Summary ---
Author Organization [facility] Address [address] [place] [address] Care Team Providers Care Floor Clerk Name Role Phone Cuba Solano MD Primary Care Provider +1 -[phone] Encounter Details Date Type Department Care Team (Latest Contact Info) Description 01/04/[address] 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
--- OUTSIDE RECORDS SUMMARY | 2025-01-21 20:38 | XMS_ITS | Encounter Summary ---
Author Organization [facility] Address [address] [place] [address] Care Team Providers Care Key Punch Operator Name Role Phone Cuba Solano MD Primary Care Provider +1 [phone] Encounter Details Date Type Department Care Team (Latest Contact Info) Description 10/02/2002 Outpatient Historical [facility] Family Medicine [place] [address] [address] Donte Borrego MD NO ADDRESS ON FILE ANEMIA NOS (Primary Dx) Social History Tobacco Use Types Packs/Day Years Used Date Smoking Tobacco: Never Assessed Sex and Gender Information Value Date Recorded Sex Assigned at Not on file Legal Sex Male 2:49 AM LEGISLATIVE AIDE Gender Identity Not on file Sexual Orientation Not on file documented as of this encounter Plan of Treatment Not on file documented as of this encounter Visit Diagnoses Diagnosis Anemia, unspecified- Primary documented in this encounter Care Teams Key Punch Operator Relationship Specialty Start Date End Date Cuba Solano MD PCP - General 07/11/09 documented as of this encounter
--- OUTSIDE RECORDS SUMMARY | 2025-01-21 20:38 | XMS_ITS | Encounter Summary ---
Author Organization [facility] Address [address] [place] [address] Care Team Providers Care Training Engineer Name Role Phone Cuba Solano MD Primary Care Provider +1 [phone] Encounter Details Date Type Department Care Team (Latest Contact Info) Description 07/11/2001 Outpatient Historical [facility] Family Medicine [place] [address] [address] Donte Borrego MD NO ADDRESS ON FILE Benign hypertension (Primary Dx); OSTEOARTHROS NOS-UNSPEC Social History Tobacco Use Types Packs/Day Years Used Date Smoking Tobacco: Never Assessed Sex and Gender Information Value Date Recorded Sex Assigned at Not on file Legal Sex Male 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
--- OUTSIDE RECORDS SUMMARY | 2025-01-21 20:38 | XMS_ITS | Encounter Summary ---
Author Organization [facility] Address [address] [place] [address] Care Team Providers Care Research Staff Member Name Role Phone Cuba Solano MD Primary Care Provider +1 -[phone] Encounter Details Date Type Department Care Team (Latest Contact Info) Description 02/15/2004 Outpatient Historical [facility] Family Medicine [place] [address] [address] Keyona Mccloud, LUCIEN NO ADDRESS ON FILE Vaccine for influenza (Primary Dx); ABN BLOOD CHEMISTRY NEC; URINARY FREQUENCY Social History Tobacco Use Types Packs/Day Years Used Date Smoking Tobacco: Never Assessed Sex and Gender Information Value Date Recorded Sex Assigned at Not on file Legal Sex Male 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
--- OUTSIDE RECORDS SUMMARY | 2025-01-21 20:38 | XMS_ITS | Encounter Summary ---
Author Organization [facility] Address [address] [place] [address] Care Team Providers Care Denture Contour Wire Specialist Name Role Phone Cuba Solano MD Primary Care Provider +1 [phone] Encounter Details Date Type Department Care Team (Latest Contact Info) Description 01/18/2002 Outpatient Historical [facility] Family Medicine [place] [address] [address] Donte Borrego MD NO ADDRESS ON FILE DISEASES OF LIPS (Primary Dx); ALLERGY, UNSPECIFIED Social History Tobacco Use Types Packs/Day Years Used Date Smoking Tobacco: Never Assessed Sex and Gender Information Value Date Recorded Sex Assigned at Not on file 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
--- OUTSIDE RECORDS SUMMARY | 2025-01-21 20:38 | XMS_ITS | Encounter Summary ---
Author Organization [facility] Address [address] [place] [address] Care Team Providers Care Unit Secretary Name Role Phone Cuba Solano MD Primary Care Provider +1 -[phone] Encounter Details Date Type Department Care Team (Latest Contact Info) Description 08/22/2001 Outpatient Historical [facility] Family Medicine [place] [address] [address] Donte Borrego MD NO ADDRESS ON FILE HYPERTENSION NOS (Primary Dx); TACHYCARDIA NOS Social History Tobacco Use Types Packs/Day Years Used Date Smoking Tobacco: Never Assessed Sex and Gender Information Value Date Recorded Sex Assigned at Not on file Legal Sex Male 2:49 AM RECORDS MANAGEMENT 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
--- OUTSIDE RECORDS SUMMARY | 2025-01-21 20:38 | XMS_ITS | Encounter Summary ---
Author Organization [facility] Address [address] [place] [address] Care Team Providers Care Senior Service Aide Name Role Phone Cuba Solano MD Primary Care Provider +1 [phone] Encounter Details Date Type Department Care Team (Latest Contact Info) Description 11/01/2001 Outpatient Historical [facility] Family Medicine [place] [address] [address] Donte Borrego MD NO ADDRESS ON FILE ACUTE SINUSITIS NOS (Primary Dx); ALLERGIC RHINITIS NEC; Benign hypertension Social History Tobacco Use Types Packs/Day Years Used Date Smoking Tobacco: Never Assessed Sex and Gender Information Value Date Recorded Sex Assigned at Not on file Legal 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
--- OUTSIDE RECORDS SUMMARY | 2025-01-21 20:38 | XMS_ITS | Encounter Summary ---
Author Organization [facility] Address [address] [place] [address] Care Team Providers Care Sustainability Coach Name Role Phone Cuba Solano MD Primary Care Provider +1 -[phone] Encounter Details Date Type Department Care Team (Latest Contact Info) Description 10/12/2003 Outpatient Historical [facility] Family Medicine [place] [address] [address] Donte Borrego MD NO ADDRESS ON FILE GASTROINTEST HEMORR NOS (Primary Dx) Social History Tobacco Use Types Packs/Day Years Used Date Smoking Tobacco: Never Assessed Sex and Gender Information Value Date Recorded Sex Assigned at Not on file Legal Sex Male 2:49 AM HOME 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
--- OUTSIDE RECORDS SUMMARY | 2025-01-21 20:39 | XMS_ITS | Encounter Summary ---
Author Organization [facility] Address [address] [place] [address] Care Team Providers Care Composite Engineer Name Role Phone Cuba Solano MD Primary Care Provider +1 -[phone] Encounter Details Date Type Department Care Team (Latest Contact Info) Description 10/06/1999 Outpatient Historical [facility] Family Medicine [place] [address] [address] Donte Borrego MD NO ADDRESS ON FILE Esophageal reflux (Primary Dx); Other and unspecified hyperlipidemia; Unspecified essential hypertension; Nonspecific abnormal results of liver function study Social History Tobacco Use Types Packs/Day Years Used Date Smoking Tobacco: Never Assessed Sex and Gender Information Value Date Recorded Sex Assigned at Not on file Legal Sex Male 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
--- OUTSIDE RECORDS SUMMARY | 2025-01-21 20:39 | XMS_ITS | Encounter Summary ---
Author Organization [facility] Address [address] [place] [address] Care Team Providers Care Telegraph Service Clerk Name Role Phone Cuba Solano MD Primary Care Provider +1 -[phone] Encounter Details Date Type Department Care Team (Latest Contact Info) Description 07/11/1999 Outpatient Historical [facility] Family Medicine [place] [address] [address] Donte Borrego MD NO ADDRESS ON FILE Unspecified essential hypertension (Primary Dx); Other convulsions; Allergy, unspecified not elsewhere classified Social History Tobacco Use Types Packs/Day Years Used Date Smoking Tobacco: Never Assessed Sex and Gender Information Value Date Recorded Sex Assigned at Not on file 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
--- OUTSIDE RECORDS SUMMARY | 2025-01-21 20:39 | XMS_ITS | Clinical Summary ---
Author Organization [facility] Address [address] [address] Care Team Providers Care Metal Control Coordinator Name Role Phone Loren Canada MD Primary Care Provider [phone] Allergies Active Allergy Reactions Criticality Noted Date [...] in the evening. Active ergocalciferol 1.25 MG (68240 UT) capsule Take 50,000 Units by mouth [...] Department Care Team Description 11/09/2024 Documentation Only [facility] [address] [place] [id number] Angy Garcia from Last 3 Months Immunizations [...] Comments Blood Pressure 118/72 05/06/2023 11:00 AM EMERGENCY DEPARTMENT TECHNICIAN Pulse 81 05/06/2023 11:00 AM EMERGENCY DEPARTMENT TECHNICIAN Temperature - - Respiratory Rate - - Oxygen Saturation - - Inhaled Oxygen Concentration - - Weight 206 kg (455 lb) 05/06/2023 11:00 AM EMERGENCY DEPARTMENT TECHNICIAN p er patient Height 182.9 cm (6') 05/06/2023 11:00 AM EMERGENCY DEPARTMENT TECHNICIAN Body Mass Index 61.71 05/06/2023 11:00 AM EMERGENCY DEPARTMENT TECHNICIAN Plan of Treatment Health Maintenance Due Date [...] to Health Maintenance Insurance Medicare Medicaid [place] ([id number]) Care Teams Metal Control Coordinator Relationship Specialty Start Date End Date Loren Canada MD [address] [address] PCP - General Family Medicine 09/22/22
--- OUTSIDE RECORDS SUMMARY | 2025-01-21 20:39 | XMS_ITS | Encounter Summary ---
Author Organization [facility] Address [address] [place] [address] Care Team Providers Care Frame Table Operator Helper Name Role Phone Cuba Solano MD Primary Care Provider [phone] Encounter Details Date Type Department Care Team (Late st Contact Info) Description 07/07/1999 Outpatient Historical [facility] Family Medicine [place] [id number] [address] Social History Tobacco Use Types Packs/Day Years Used Date Smoking Tobacco: Never Assessed Sex and Gender Information Value Date Recorded Sex Assigned at Not on file Legal Sex Male 2:49 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
--- OUTSIDE RECORDS SUMMARY | 2025-01-21 20:39 | XMS_ITS | Encounter Summary ---
Author Organization [employer] [facility] Address [address] [place] [address] Care Team Providers Care Facility Service Associate Name Role Phone Cuba Solano MD Primary Care Provider [phone] Encounter Details Date Type Department Care Team (Latest Contact Info) Description 01/15/1998 Outpatient Historical [facility] Moi George MD [address] [place] [address] Blood in stool (Primary Dx); Nonspecific abnormal results of liver function study Social History Tobacco Use Types Packs/Day Years Used Date Smoking Tobacco: Never Assessed Sex and Gender Information Value Date Recorded Sex Assigned at Not on file Legal Sex Male 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
--- OUTSIDE RECORDS SUMMARY | 2025-01-21 20:39 | XMS_ITS | Encounter Summary ---
Author Organization [facility] Address [address] [place] [address] Care Team Providers Care Charge Histotechnologist Name Role Phone Cuba Solano MD Primary Care Provider [phone] [phone] Encounter Details Date Type Department Care Team (Latest Contact Info) Description 06/17/1998 Outpatient Historical [facility] Family Medicine [place] [id number] [address] Donte Borrego MD NO ADDRESS ON FILE Other abnormal clinical finding (Primary Dx) Social History Tobacco Use Types Packs/Day Years Used Date Smoking Tobacco: Never Assessed Sex and Gender Information Value Date Recorded Sex Assigned at Not on file Legal Sex Male 2:49 AM MOVER Gender Identity Not on file Sexual Orientation Not on file documented as of this encounter Plan of Treatment Not on file documented as of this encounter Visit Diagnoses Diagnosis Other abnormal clinical finding- Primary documented in this encounter Care Teams Charge Histotechnologist Relationship Specialty Start Date End Date Cuba Solano MD PCP - General 07/11/09 documented as of this encounter
--- OUTSIDE RECORDS SUMMARY | 2025-01-21 20:39 | XMS_ITS | Encounter Summary ---
Author Organization [facility] Address [address] [place] [address] Care Team Providers Care Lawyers Name Role Phone Cuba Solano MD Primary Care Provider [phone] [phone] Encounter Details Date Type Department Care Team (Latest Contact Info) Description 08/13/1998 Outpatient Historical [facility] [place] [place] [facility] Moi George MD [address] [place] [address] Abdominal pain, unspecified site (Primary Dx); Blood in stool; Esophageal reflux Social History Tobacco Use Types Packs/Day Years Used Date Smoking Tobacco: Never Assessed Sex and Gender Information Value Date Recorded Sex Assigned at Not on file Legal 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
--- OUTSIDE RECORDS SUMMARY | 2025-01-21 20:39 | XMS_ITS | Encounter Summary ---
Author Organization [facility] Address [address] [place] [address] Care Team Providers Care Community Service Director Name Role Phone Cuba Solano MD Primary Care Provider [phone] [phone] Encounter Details Date Type Department Care Team (Latest Contact Info) Description 03/05/1999 Outpatient Historical [facility] Family Medicine [place] [address] [address] Donte Borrego MD NO ADDRESS ON FILE Need vaccination-viral disease (Primary Dx); Encounter for long-term (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 of other medications Social History Tobacco Use Types Packs/Day Years Used Date Smoking Tobacco: Never Assessed Sex and Gender Information Value Date Recorded Sex Assigned at Not on file Legal 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
--- OUTSIDE RECORDS SUMMARY | 2025-01-21 20:39 | XMS_ITS | Encounter Summary ---
Author Organization [facility] Address [address] [place] [address] Care Team Providers Care Automotive Service Director Name Role Phone Cuba Solano MD Primary Care Provider [phone] [phone] Encounter Details Date Type Department Care Team (Latest Contact Info) Description 07/08/1998 Outpatient Historical [facility] Family Medicine Angelica [address] [address] Donte Borrego MD NO ADDRESS ON FILE Acute infection of pinna (Primary Dx); Acute perichondritis pinna; Malaise and fatigue; Other specified disorders of liver Social History Tobacco Use Types Packs/Day Years Used Date Smoking Tobacco: Never Assessed Sex and Gender Information Value Date Recorded Sex Assigned at Not on file Legal Sex Male 2:49 AM RISK ANALYST Gender Identity Not on file Sexual Orientation Not on file documented as of this encounter Plan of Treatment Not on file documented as of this encounter Visit Diagnoses Diagnosis Acute infection of pinna- Primary Acute perichondritis pinna Acute perichondritis of pinna Malaise and fatigue Other specified disorders of liver documented in this encounter Care Teams Automotive Service Director Relationship Specialty Start Date End Date Cuba Solaon MD PCP - General 07/11/09 documented as of this encounter
--- OUTSIDE RECORDS SUMMARY | 2025-01-21 20:39 | XMS_ITS | Encounter Summary ---
Author Organization [employer] [facility] Address [address] [place] [address] Care Team Providers Care Hand Mold Maker Name Role Phone Cuba Solano MD Primary Care Provider [phone] [phone] Encounter Details Date Type Department Care Team (Latest Contact Info) Description 02/19/1998 Outpatient Historical [facility] Moi George MD [address] [place] [address] Benign joe lg bowel (Primary Dx); Unspecified hemorrhoids 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 Social History Tobacco Use Types Packs/Day Years Used Date Smoking Tobacco: Never Assessed Sex and Gender Information Value Date Recorded Sex Assigned at Not on file Legal Sex Male 2: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
--- OUTSIDE RECORDS SUMMARY | 2025-01-21 20:39 | XMS_ITS | Encounter Summary ---
Author Organization [facility] Address [address] [place] [address] Care Team Providers Care Card Services Specialist Name Role Phone Cuba Solano MD Primary Care Provider [phone] [phone] Encounter Details Date Type Department Care Team (Latest Contact Info) Description 01/29/1998 Outpatient Historical [facility] Family Medicine [place] [address] [address] Donte Borrego MD NO ADDRESS ON FILE Unspecified suppurative otitis media (Primary Dx) Social History Tobacco Use Types Packs/Day Years Used Date Smoking Tobacco: Never Assessed Sex and Gender Information Value Date Recorded Sex Assigned at Not on file Legal Sex Male 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
--- OUTSIDE RECORDS SUMMARY | 2025-01-21 20:39 | XMS_ITS | Encounter Summary ---
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
--- OUTSIDE RECORDS SUMMARY | 2025-01-21 20:39 | XMS_ITS | Encounter Summary ---
Author Organization [employer] [facility] Address [address] [place] [address] Care Team Providers Care Estimator Lumber Name Role Phone Cuba Solano MD Primary Care Provider [phone] [phone] Encounter Details Date Type Department Care Team (Latest Contact Info) Description 09/10/1999 Outpatient Historical [facility] Moi George MD [address] [place] [address] Esophageal reflux (Primary Dx); Diaphragmatic hernia Social History Tobacco Use Types Packs/Day Years Used Date Smoking Tobacco: Never Assessed Sex and Gender Information Value Date Recorded Sex Assigned at Not on file Legal Sex Male 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
--- OUTSIDE RECORDS SUMMARY | 2025-01-21 20:39 | XMS_ITS | Encounter Summary ---
Author Organization [facility] Address [address] [place] [address] Care Team Providers Care Manager Administrative Name Role Phone Cuba Solano MD Primary Care Provider [phone] [phone] Encounter Details Date Type Department Care Team (Latest Contact Info) Description 08/15/1999 Outpatient Historical [facility] Moi George MD [address] [place] [address] Nonspecific abnormal results of liver function study (Primary Dx); Esophageal reflux; Unspecified hemorrhoids 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 Social History Tobacco Use Types Packs/Day Years Used Date Smoking Tobacco: Never Assessed Sex and Gender Information Value Date Recorded Sex Assigned at Not on file Legal Sex Male 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
--- OUTSIDE RECORDS SUMMARY | 2025-01-21 20:39 | XMS_ITS | Encounter Summary ---
Author Organization [facility] Address [address] [place] [address] Care Team Providers Care Marketing Project Coordinator Name Role Phone Cuba Solano MD Primary Care Provider [phone] [phone] Encounter Details Date Type Department Care Team (Latest Contact Info) Description 08/13/1998 Outpatient Historical HIS [facility] [place] [address] [place] [address] Other convulsions (Primary Dx) Social History Tobacco Use Types Packs/Day Years Used Date Smoking Tobacco: Never Assessed Sex and Gender Information Value Date Recorded Sex Assigned at Not on file 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
--- OUTSIDE RECORDS SUMMARY | 2025-01-21 20:39 | XMS_ITS | Encounter Summary ---
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
--- OUTSIDE RECORDS SUMMARY | 2025-01-21 20:39 | XMS_ITS | Encounter Summary ---
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
--- OUTSIDE RECORDS SUMMARY | 2025-01-21 20:39 | XMS_ITS | Encounter Summary ---
Author Organization [facility] Address [address] [place] [address] Care Team Providers Care Accreditation Manager Name Role Phone Cuba Solano MD Primary Care Provider +1 [phone] Encounter Details Date Type Department Care Team (Latest Contact Info) Description 04/10/1999 Outpatient Historical [facility] Family Medicine [place] [id number] [address] Donte Borrego MD NO ADDRESS ON FILE Unspecified essential hypertension (Primary Dx) Social History Tobacco Use Types Packs/Day Years Used Date Smoking Tobacco: Never Assessed Sex and Gender Information Value Date Recorded Sex Assigned at Not on file Legal Sex Male 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
--- OUTSIDE RECORDS SUMMARY | 2025-01-21 20:39 | XMS_ITS | Encounter Summary ---
Author Organization [facility] Address [address] [facility] Attn: [place] [address] Care Team Providers Care Egg Trayer Name Role Phone Cuba Solano MD Primary Care Provider [phone] [phone] Encounter Details Date Type Department Care Team (Late st Contact Info) Description 01/08/2000 Outpatient Historical Donte Borrego MD NO ADDRESS ON FILE Social History Tobacco Use Types Packs/Day Years Used Date Smoking Tobacco: Never Assessed Sex and Gender Information Value Date Recorded Sex Assigned at Not on file Legal Sex Male 2:49 AM REGISTERED DIETICIAN Gender Identity Not on file Sexual Orientation Not on file documented as of this encounter Plan of Treatment Not on file documented as of this encounter Visit Diagnoses Not on filedocumented in this encounter Care Teams Egg Trayer Relationship Specialty Start Date End Date Cuba Solano MD PCP - General 07/11/09 documented as of this encounter
--- OUTSIDE RECORDS SUMMARY | 2025-01-21 20:39 | XMS_ITS | Encounter Summary ---
Author Organization [facility] Address [address] [place] [address] Care Team Providers Care Tool Drawing Checker Name Role Phone Cuba Solano MD Primary Care Provider +1 [phone] Encounter Details Date Type Department Care Team (Latest Contact Info) Description 04/04/1999 Outpatient Historical [facility] Family Medicine Angelica 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
--- OUTSIDE RECORDS SUMMARY | 2025-01-21 20:39 | XMS_ITS | Encounter Summary ---
Author Organization [facility] Address [address] [place] [address] Care Team Providers Care Bone Crusher Name Role Phone Cuba Solano MD Primary Care Provider [phone] [phone] Encounter Details Date Type Department Care Team (Latest Contact Info) Description 04/08/1998 Outpatient Historical [facility] Family Medicine [place] [address] [address] Donte Borrego MD NO ADDRESS ON FILE Generalized osteoarthrosis, unspecified site (Primary Dx); Nonspecific elevation of levels of transaminase or lactic acid dehydrogenase (LDH); Need vaccination-viral disease Social History Tobacco Use Types Packs/Day Years Used Date Smoking Tobacco: Never Assessed Sex and Gender Information Value Date Recorded Sex Assigned at Not on file Legal Sex Male 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
--- OUTSIDE RECORDS SUMMARY | 2025-01-21 20:39 | XMS_ITS | Encounter Summary ---
Author Organization [facility] Address [address] [place] [address] Care Team Providers Care Production Corrugator Name Role Phone Cuba Solano MD Primary Care Provider [phone] Encounter Details Date Type Department Care Team (Latest Contact Info) Description 10/08/[address] 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
--- OUTSIDE RECORDS SUMMARY | 2025-01-21 20:39 | XMS_ITS | Encounter Summary ---
Author Organization [facility] Address [address] [place] [address] Care Team Providers Care Analytics Lead Name Role Phone Cuba Solano MD Primary Care Provider [phone] Encounter Details Date Type Department Care Team (Latest Contact Info) Description 08/15/1999 Outpatient Historical [facility] [place] [address] [place] [address] Other convulsions (Primary Dx) Social History Tobacco Use Types Packs/Day Years Used Date Smoking Tobacco: Never Assessed Sex and Gender Information Value Date Recorded Sex Assigned at Not on file Legal Sex Male 2: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
--- OUTSIDE RECORDS SUMMARY | 2025-01-21 20:39 | XMS_ITS | Encounter Summary ---
Author Organization [facility] Address [address] [place] [address] Care Team Providers Care Knot Borer Name Role Phone Cuba Solano MD Primary Care Provider [phone] Encounter Details Date Type Department Care Team (Latest Contact Info) Description 01/07/[address] 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
--- OUTSIDE RECORDS SUMMARY | 2025-01-21 20:39 | XMS_ITS | Encounter Summary ---
Author Organization [facility] Address [address] [place] [address] Care Team Providers Care Plier Worker Name Role Phone Cuba Solano MD Primary Care Provider [phone] Encounter Details Date Type Department Care Team (Latest Contact Info) Description 12/03/1998 Outpatient Historical [facility] Family Medicine [place] [id number] [address] Donte Borrego MD NO ADDRESS ON FILE Other and unspecified hyperlipidemia (Primary Dx); Acute conjunctivitis, unspecified; Unspecified essential hypertension; Allergy, unspecified not elsewhere classified Social History Tobacco Use Types Packs/Day Years Used Date Smoking Tobacco: Never Assessed Sex and Gender Information Value Date Recorded Sex Assigned at Not on file Legal Sex Male 2:49 AM REGULATORY LAW SPECIALIST Gender Identity Not on file Sexual Orientation Not on file documented as of this encounter Plan of Treatment Not on file documented as of this encounter Visit Diagnoses Diagnosis Other and unspecified hyperlipidemia- Primary Acute conjunctivitis, unspecified Unspecified essential hypertension Allergy, unspecified not elsewhere classified documented in this encounter Care Teams Plier Worker Relationship Specialty Start Date End Date Cuba Solano MD PCP - General 07/11/09 documented as of this encounter
--- OUTSIDE RECORDS SUMMARY | 2025-01-21 20:39 | XMS_ITS | Encounter Summary ---
Author Organization [facility] Address [address] [place] [address] Care Team Providers Care Paint Laboratory Technician Name Role Phone Cuba Solano MD Primary Care Provider [phone] Encounter Details Date Type Department Care Team (Latest Contact Info) Description 02/19/1998 Outpatient Historical [facility] [place] [address] [place] [address] Other convulsions (Primary Dx) Social History Tobacco Use Types Packs/Day Years Used Date Smoking Tobacco: Never Assessed Sex and Gender Information Value Date Recorded Sex Assigned at Not on file Legal Sex Male 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
--- OUTSIDE RECORDS SUMMARY | 2025-01-21 20:39 | XMS_ITS | Encounter Summary ---
Author Organization [facility], [facility] Address [address] [place] [address] Phone Care Team Providers Care Personal Vehicle Advisor Name Role Phone Loren Canada MD Primary Care Provider [phone] Encounter Details Date Type Department Care Team (Late st Contact Info) Description 09/22/[address] [facility] [address] [place] [address] Chronic kidney disease stage 3B [...] (HCC) documented in this encounter Care Teams Personal Vehicle Advisor Relationship Specialty Start Date End Date Loren Canada MD [address] [place], [place] [address] PCP - General Family Medicine 09/22/22 documented as of this encounter
--- NOTE | 2025-01-21 20:40 | W.ED.SOB ---
HPI - SOB/Dyspnea General: Chief Complaint: Shortness of Breath/Dyspnea Stated Complaint: SOB History of Present Illness: HPI Narrative: Patient is a 59-year-old gentleman DM, A-flutter, chronically on Eliquis and amiodarone, morbid obesity, COPD, presents to the emergency room with ongoing shortness of breath x 1-1/2-week. Patient was in the hospital and discharged after pneumonia, COPD. He returns he feels like his throat is closing from shortness of breath, and he cannot take a deep breath. He is not having any change from his sputum of clear sputum. He does have a little more density in his abdomen. He states that he was not placed on steroids due to his DM. His cough is nonproductive and productive at times. He has not had any fever or chills. Associated symptoms: Deny abdominal pain, chest pain, fever(s), lightheadedness, nausea, palpitations or vomiting Related Data Home Medications ?Medication ?Instructions ?Recorded ?Confirmed allopurinol 300 mg tablet 300 mg PO DAILY 05/08/19 01/15/25 carboxymethylcellulose sodium 0.5 1 drop ophthalmic (eye) DAILY PRN 05/08/19 01/15/25 % eye drops (Refresh Tears) Dry Eyes cholecalciferol (vitamin D3) 25 1,000 unit PO DAILY 05/08/19 01/15/25 mcg (1,000 unit) capsule montelukast 10 mg tablet 10 mg PO DAILY 05/08/19 01/15/25 metoclopramide HCl 10 mg tablet 10 mg PO Q6H PRN 04/16/22 01/15/25 (Reglan) spironolactone 25 mg tablet 12.5 mg PO DAILY 09/18/22 01/15/25 ipratropium 0.5 mg-albuterol 3 mg 3 ml inhalation QID PRN 10/16/22 01/15/25 (2.5 mg base)/3 mL nebulization soln multivit-minerals no.60-ferrous tab PO 10/16/22 01/15/25 fumarate-folic acid 27 mg-1 mg tablet (Niva-Plus) potassium chloride 10 mEq 10 meq PO DAILY 10/16/22 01/15/25 tablet,extended release metoprolol tartrate 100 mg tablet 100 mg PO BID 12/28/23 01/15/25 amitriptyline 75 mg tablet 25 mg PO .hs 04/24/24 01/15/25 bisacodyl 10 mg rectal suppository 10 mg MT DAILY PRN 04/24/24 01/15/25 (Dulcolax (bisacodyl)) dapagliflozin propanediol 10 mg 10 mg PO DAILY 04/24/24 01/15/25 tablet esomeprazole magnesium 40 mg 40 mg PO BID 04/24/24 01/15/25 capsule,delayed release lidocaine 5 % topical patch 1 patch topical BID 04/24/24 01/15/25 magnesium hydroxide 400 mg/5 mL 5 ml PO DAILY PRN 04/24/24 01/15/25 oral suspension (Milk of Magnesia) sodium phosphates 19 gram-7 118 ml MT DAILY PRN 04/24/24 01/15/25 gram/118 mL enema (Fleet Enema) tamsulosin 0.4 mg capsule (Flomax) 0.4 mg PO BID 04/24/24 01/15/25 acetaminophen 500 mg capsule 500 mg PO Q6H PRN 09/08/24 01/15/25 budesonide 160 mcg-glycopyr 9 2 inh inhalation BID 09/08/24 01/15/25 mcg-formot 4.8 mcg/actuation HFA inhaler (Breztri Aerosphere) docusate sodium 100 mg capsule 100 mg PO BID 09/08/24 01/15/25 polyethylene glycol 3350 17 gram 17 g PO DAILY 09/08/24 01/15/25 oral powder packet sennosides 8.6 mg tablet (senna) 8.6 mg PO 09/08/24 01/15/25 tobramycin-dexamethasone 0.3 %-0.1 0.5 inch ophthalmic (eye) DAILY 09/08/24 01/15/25 % eye ointment (TobraDex) loratadine 10 mg tablet mg PO 11/07/24 01/15/25 wvfkvcmc-iqz-yydlv acid 0.4 tab PO 11/07/24 01/15/25 mg-lycopene 300 mcg-lutein 250 mcg tablet (Adults 50 Plus) semaglutide 0.25 mg or 0.5 mg (2 mg SUBCUT 11/07/24 01/15/25 mg/3 mL) subcutaneous pen injector (Ozempic) insulin glargine 100 unit/mL (3 130 unit SUBCUT QDAY 12/11/24 01/15/25 mL) subcutaneous pen (Basaglar KwikPen U-100 Insulin) insulin lispro 100 unit/mL 40 unit SUBCUT .with meals 12/11/24 01/15/25 subcutaneous pen (Admelog SoloStar U-100 Insulin lispro) midodrine 5 mg tablet mg PO BID 12/11/24 01/15/25 Previous Rx's ?Medication ?Instructions ?Recorded fluticasone propionate 50 1 spray intranasal BID #15.8 mL 07/18/19 mcg/actuation nasal spray,suspension atorvastatin 20 mg tablet 20 mg PO ONCE #30 tabs 10/30/19 hydrocodone 5 mg-acetaminophen 325 1 tab PO TID PRN pain 30 days #90 02/05/21 mg tablet tabs apixaban 5 mg tablet (Eliquis) 5 mg PO BID #180 tabs 04/06/23 amiodarone 200 mg tablet 200 mg PO DAILY #90 tabs 09/09/23 pregabalin 50 mg capsule 50 mg PO TID #90 caps 03/22/24 polyethylene glycol 3350 17 4 g PO DAILY #238 grams 11/28/24 gram/dose oral powder (Miralax) azithromycin 250 mg tablet See Rx Instructions PO .COMPLEX #6 01/14/25 (Zithromax) tabs cefdinir 300 mg capsule 300 mg PO BID 10 days #20 caps 01/14/25 methylprednisolone 4 mg tablets in See Rx Instructions PO .COMPLEX 01/21/25 a dose pack (Medrol (Tani)) #21 ea Allergies Allergy/AdvReac Type Severity Reaction Status Date / Time Penicillins Allergy ALGY-Hives Verified 01/21/25 20:32 Sulfa (Sulfonamide Allergy ALGY-Hives Verified 01/21/25 20:32 Antibiotics) Review of Systems General: Reports: 10 or more systems reviewed and unremarkable except in HPI and below Const: Denies: fever(s), chills or body aches ENMT: Denies: throat pain, nasal congestion, nasal obstruction or post nasal drip Card: Reports: irregular heart rhythm (chronic) and edema (aka left); Denies: chest pain, palpitations or lightheadedness Resp: Reports: dyspnea, productive cough and non-productive cough GI: Reports: other (chronic abdominal distension); Denies: abdominal pain, nausea or vomiting Musc: Reports: joint pain (chronic); Denies: neck pain Neuro: Denies: headache(s) or numbness in extremities Psych: Reports: anxiety; Denies: depression PFSH ED PFSH: Medical History (Updated 01/21/25 @ 22:36 by VIVIANE Reyes) Constipation Dry eye syndrome of unspecified lacrimal gland Unspecified glaucoma Gastro-esophageal reflux disease without esophagitis Benign prostatic hyperplasia without lower urinary tract symptoms Gout, unspecified Hyperlipidemia, unspecified 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 Muscle weakness (generalized) COPD (chronic obstructive pulmonary disease) nursing home (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 of anticoagulants Chronic atrial fibrillation, unspecified Open wound of left lower quadrant of abdominal wall without penetration into peritoneal cavity Intertriginous dermatitis associated with moisture Morbid obesity Atrial flutter Encounter for screening colonoscopy Repeat screening colonoscopy in 10 years unless otherwise specified Chronic low back pain Chronic right shoulder pain Diabetes mellitus Shoulder pain BILATERAL Encounter for long-term use of opiate analgesic Right knee pain Amputation above knee Left Diabetes type 2, controlled Essential hypertension Dysuria-frequency syndrome Seizure BPH (benign prostatic hyperplasia) Primary osteoarthritis of both knees r knee Sleep apnea Surgical History History of left above knee amputation History of shoulder surgery 2002 x 2 L shoulder Family History Other Heart disease Hypertension Social History Smoking and tobacco/nicotine status: current some day tobacco/nicotine user smokeless tobacco Smokeless tobacco user: chewing tobacco Smokeless tobacco details: 2 cans a day Second hand smoke exposure: No Alcohol intake: never Substance/Drug Use: never Physical Exam Const: GENERAL APPEARANCE: cooperative and well kempt NUTRITIONAL APPEARANCE: obese morbidly obese ORIENTATION/CONSCIOUSNESS: Yes awake, Yes oriented to person, Yes oriented to place and Yes oriented to time HENMT: COMMON NORMALS: normocephalic, atraumatic and Normal external nose present HEAD & SCALP: normocephalic and atraumatic FACE & SINUS: face symmetric NOSE: Normal external nose present Eye: COMMON NORMALS: Equal, round and reactive pupils present and EOMs intact bilaterally CONJUNCTIVA: Yes conjunctival abnormal positive left conjunctival injection and discharge PUPIL: Yes Equal, round and reactive pupils present Neck/C-Spine: GENERAL: Yes trachea midline Chest: CHEST: Yes Symmetrical chest wall rise Resp: COMMON NORMALS: No retractions and No use of accessory muscles EFFORT & INSPECTION: Yes able to speak in complete sentences AUSCULTATION: rhonchi and wheezes scattered wheezes Cardio: COMMON NORMALS: regular rhythm RATE: tachycardic RHYTHM: regular rhythm GI: COMMON NORMALS: Normal to inspection, nondistended, normoactive bowel sounds present and Soft to palpation INSPECTION: No Anasarca and Yes gravid abdomen PALPATION: Yes Soft to palpation OTHER: no fluid wave Extremity: NARRATIVE EXTREMITY EXAM: Left amputated. Neuro: SENSORIUM/ORIENTATION: Yes oriented to person, Yes oriented to place and Yes oriented to time Psych: APPEARANCE: Yes well kempt Course Vital Signs: Vital signs: Vital Signs Temperature 98.9 F 01/21/25 20:28 Pulse Rate 111 H 01/21/25 23:16 Respiratory Rate 18 01/21/25 21:44 Blood Pressure 158/66 01/21/25 23:16 Pulse Oximetry 99 01/21/25 23:16 Oxygen Delivery Me thod Nasal Cannula 01/21/25 22:25 Oxygen Flow Rate 5 01/21/25 22:25 MDM - SOB/Dyspnea Medical Decision Making Patient is a 59-year-old gentleman that recently was admitted for pneumonia, and COPD, with known A-fib, DM. On his workup here, he does not have a leukocytosis, no COVID, procalcitonin 0.15. He is improved after Solu-Medrol. I will place him on Medrol Dosepak, and close follow-up with his primary. I did not treat his metabolic acidosis with concern of additional fluid overload. Given his morbid obesity, and concern of fatty liver, that patient needs more follow-up outpatient, patient will need repeat labs, no additional correction as this can cause harm. All of his questions and sister's questions answered to his understanding. Medical Records I reviewed the patient's medical records. Lab Data I reviewed the patient's lab results. 01/21/25 20:33 01/21/25 20:33 Labs/Radiology: Radiology Impressions Chest X-Ray 01/21/25 20:57 IMPRESSION: 1. Infrahilar streakiness in the haziness on the right, can not exclude mild edema or infiltrate. 2. Nonvisualization of left diaphragm, can not exclude small effusion or infiltrate. Laboratory Results WBC 4.23 10^3/uL (3.29-11.43) 01/21/25 20: RBC 3.07 10^6/uL (3.85-5.65) L 01/21/25 20: Hgb 8.50 g/dL (11.27-16.99) L 01/21/25: Hct 27.0 % (37-53) L 01/21/25: MCV 87.9 fl (82-101) 01/21/25: MCH 27.7 pg (27-33) 01/21/25: MCHC 31.5 g/dL (30-55) 01/21/25: RDW 17.3 % (12.1-15.1) H 01/21/25: Plt Count 119 10^3/cmm (157-399) L 01/21/25: MPV 10.9 fL (7.4-10.4) H 01/21/25: Neut % (Auto) 66.7 % 01/21/25: Lymph % (Auto) 13.7 % 01/21/25: [place] % (Auto) 13.2 % 01/21/25: Eos % (Auto) 4.5 % 01/21/25: Baso % (Auto) 0.5 % 01/21/25: Neut # (Auto) 2.82 10^3/uL (1.8-7.7) 01/21/25: Lymph # (Auto) 0.6 10^3/uL (0.8-4.8) L 01/21/25: [place] # (Auto) 0.6 10^3/uL (0.2-0.9) 01/21/25 20: Eos # (Auto) 0.2 10^3/uL (0.0-0.8) 01/21/25: Baso # (Auto) 0.0 10^3/uL (0.0-0.1) 09/21/25 20:33 Nucleated RBC % (auto) 0 % 01/21/25 20:33 Nucleated RBCs # 0.0 /100WBC 01/21/25 20:33 PT 18.00 SECONDS (12.1-14.9) H 01/21/25 20:33 INR 1.39 (0.8-1.2) H 01/21/25 20:33 Sodium 132 mmol/L (136-145) L 01/21/25 20:33 Potassium 4.5 mmol/L (3.5-5.1) 01/21/25 20:33 Chloride 99 mmol/L (98-107) 01/21/25 20:33 Carbon Dioxide 19 mmol/L (22-29) L 01/21/25 20:33 Anion Gap 18.5 (5-19) 01/21/25 20:33 BUN 19 mg/dL (8-23) 01/21/25 20:33 Creatinine 0.9 mg/dL (0.7-1.2) 01/21/25 20:33 GFR Calculation 85.8 mL/min (90-130) L 01/21/25 20:33 Glucose 252 mg/dL (65-115) H 01/21/25 20:33 Calculated Osmolality 285 mOsm/kg (285-295) 01/21/25 20:33 Calcium 8.7 mg/dL (8.5-10.5) 01/21/25 20:33 Total Bilirubin 1.4 mg/dL (0.15-1.2) H 01/21/25 20:33 AST 77 U/L (0-40) H 01/21/25 20:33 ALT 34 U/L (0-41) 01/21/25 20:33 Alkaline Phosphatase 121 U/L (40-130) 01/21/25 20:33 NT-Pro-B Natriuret Pep 1030 pg/mL (0-125) H 01/21/25 20:33 Total Protein 6.8 g/dL (6.6-8.7) 01/21/25 20:33 Albumin 3.3 g/dL (3.5-5.2) L 01/21/25 20:33 Globulin 3.5 g/dL (1.3-4.6) 01/21/25 20:33 Procalcitonin 0.15 ng/mL (0-0.5) 01/21/25 20:33 Influenza A (PCR) Negative (Negative) 01/21/25 21:03 Influenza Type B (PCR) Negative (Negative) 01/21/25 21:03 RSV (PCR) Negative (Negative) 01/21/25 21:03 SARS-CoV-2 (PCR) Negative (Negative) 01/21/25 21:03 All radiology interpretation(s) finalized by discharge Discharge Plan Discharge Patient Disposition: Home Clinical Impression: COPD exacerbation, Post viral syndrome Condition: Stable Prescriptions: New methylprednisolone [Medrol (Tani)] 4 mg tablets,dose pack See Rx Instructions .ROUTE .COMPLEX Qty: 21 0RF Rx Instructions: for 6 days No Action montelukast 10 mg tablet 10 mg PO DAILY allopurinol 300 mg tablet 300 mg PO DAILY Refresh Tears 0.5 % drops 1 drop ophthalmic (eye) DAILY PRN (Reason: Dry Eyes) cholecalciferol (vitamin D3) 1,000 unit capsule 1,000 unit PO DAILY tamsulosin [Flomax] 0.4 mg capsule 0.4 mg PO BID hydrocodone-acetaminophen 5-325 mg tablet 1 tab PO TID PRN (Reason: pain) 30 Days Qty: 90 0RF Rx Instructions: fill on or after 02/14/21 lidocaine HCl [Lidocaine Viscous] 2 % solution 1 applic topical ONCE Qty: 1 0RF magnesium hydroxide [Milk of Magnesia] 400 mg/5 mL suspension 5 ml PO DAILY PRN bisacodyl [Dulcolax (bisacodyl)] 10 mg suppository 10 mg MT DAILY PRN Fleet Enema 19-7 gram/118 mL enema 118 ml MT DAILY PRN lidocaine HCl [Lidocaine Viscous] 2 % solution 1 applic topical ONCE Qty: 1 0RF lidocaine HCl [Lidocaine Viscous] 2 % solution 1 applic topical ONCE Qty: 1 0RF loratadine 10 mg tablet PO Adults 50 Plus 0.4 mg-300 mcg- 250 mcg tablet PO Ozempic 0.25 mg or 0.5 mg (2 mg/3 mL) pen injector SUBCUT metoclopramide HCl [Reglan] 10 mg tablet 10 mg PO Q6H PRN amitriptyline 75 mg tablet 25 mg PO .hs Niva-Plus 27 mg iron- 1 mg tablet PO ipratropium-albuterol 0.5 mg-3 mg(2.5 mg base)/3 mL solution for nebulization 3 ml inhalation QID PRN potassium chloride 10 mEq tablet extended release 10 meq PO DAILY metoprolol tartrate 100 mg tablet 100 mg PO BID lidocaine 5 % adhesive patch,medicated 1 patch topical BID Rx Instructions: leave on most painful area for up to 12 hrs dapagliflozin propanediol 10 mg tablet 10 mg PO DAILY esomeprazole magnesium 40 mg capsule,delayed release(DR/EC) 40 mg PO BID sennosides [senna] 8.6 mg tablet 8.6 mg PO polyethylene glycol 3350 17 gram powder in packet 17 g PO DAILY TobraDex 0.3-0.1 % ointment 0.5 inch ophthalmic (eye) DAILY Rx Instructions: hs docusate sodium 100 mg capsule 100 mg PO BID acetaminophen 500 mg capsule 500 mg PO Q6H PRN Breztri Aerosphere 160-9-4.8 mcg/actuation HFA aerosol inhaler 2 inh inhalation BID insulin glargine [Basaglar KwikPen U-100 Insulin] 100 unit/mL (3 mL) insulin pen 130 unit SUBCUT QDAY Rx Instructions: hs insulin lispro [Admelog SoloStar U-100 Insulin] 100 unit/mL insulin pen 40 unit SUBCUT .with meals midodrine 5 mg tablet PO BID polyethylene glycol 3350 [Miralax] 17 gram/dose powder 4 g PO DAILY Qty: 238 0RF fluticasone propionate 50 mcg/actuation spray,suspension 1 spray INTRANASAL BID Qty: 15.8 6RF atorvastatin 20 mg tablet 20 mg PO ONCE Qty: 30 11RF spironolactone 25 mg tablet 12.5 mg PO DAILY Eliquis 5 mg tablet 5 mg PO BID Qty: 180 3RF amiodarone 200 mg tablet 200 mg PO DAILY Qty: 90 3RF pregabalin 50 mg capsule 50 mg PO TID Qty: 90 5RF cefdinir 300 mg capsule 300 mg PO BID 10 Days Qty: 20 0RF azithromycin [Zithromax] 250 mg tablet See Rx Instructions .ROUTE .COMPLEX Qty: 6 0RF Rx Instructions: For 250 mg dose pack: take 500 mg today (day 1), then 250 mg for 4 days (days 2-5) Discharge Orders: Discharge ED (Routine); Ordered 01/21/25 Ordered By: Keiry Green Referrals: Chris Parker DO [Primary Care Provider, Internal Medicine] Discharge Diet: Diabetic Discharge Activity: Resume usual activity Patient Instructions: COPD (Chronic Obstructive Pulmonary Disease) (ED), Patient Portal & [facility] Instructions Activity Restrictions/Additional Instructions: - You will need to see your primary care physician in the next 48 hours -Return to ED with worsening shortness of breath -Your medication has been sent to the pharmacy. There is no need to do additional antibiotics at this time since your marker is normal for pneumonia. This does appear to be associated with postviral syndrome Print Language: Estonian Coding Level of Care Code ED Hospice Aide for Jeronimo Enamorado
--- OUTSIDE RECORDS SUMMARY | 2025-01-21 20:40 | XMS_ITS | Clinical Summary ---
Author Organization [facility] Address [address] [place] [address] Care Team Providers Care Information Support Project Manager Name Role Phone Cuba Solano MD Primary Care Provider [phone] Allergies Active Allergy Reactions Criticality Noted Date [...] mL 30 x 1/2 Misc Syrg by [facility]Non-[place]; Combo Route) route. 100 Syringe 11 05/30/19 [...] hours. Active Water Liquid 1 Gallon by [facility]Non-Drug; Combo Route) route daily. 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 Gender Identity Not on file Sexual Orientation [...] HEMOGLOBIN A1C 6.9(H) 4.0 - 6.0 % [facility] Blood specimen (specimen) 10/11/2008 1:40 PM CDT 10/11/2008 1:41 PM CDT us Katie Acosta DO CHEMISTRY ORDERABLES Final Result Performing Organization Address [facility] Phone Number INTERFACE SYSTEM Refer to clinic/hospital department [facility] CLIA# [id number] [address] [place] [address] * (ABNORMAL) MICROALBUMIN, RANDOM URINE (09/27/2008 1:30 PM CDT) MICROALBUMIN, URINE 20(H) <20 MG/L [facility] Blood specimen (specimen) 09/27/2008 1:30 PM CDT 09/27/2008 1:31 PM CDT Katie Acosta DO URINE ORDERABLES Susanne l Result Performing Organization Address [facility] Phone Number INTERFACE SYSTEM Refer to clinic/hospital department [facility] CLIA# [id number] [address] [place] [address] * (ABNORMAL) LIPID PANEL (09/27/2008 1:30 PM CDT) CHOLESTEROL 196 100 - 200 MG/DL [facility] TRIGLYCERIDE 218(H) 0 - 150 MG/DL [facility] HDL 23(L) 40 - 60 MG/DL [facility] LDL CALCULATED 129(H) 58 - 100 MG/DL [facility] Comment: CALCULATED LDL REFERENCE: < 100 Optimal 100 - 129 Near Optimal 130 - 159 Borderline High > 160 High Risk CHOL/HDL RATIO 8.52(H) 3.43 - 4.97 RATIO [facility] Blood specimen (specimen) 09/27/2008 1:30 PM CDT 09/27/2008 1:31 PM CDT Katie Acosta DO CHEMISTRY ORDERABLES Final Result Performing Organization Address [facility] Phone Number INTERFACE SYSTEM Refer to clinic/hospital department [facility] CLIA# [id number] [address] [place] [address] from Last 3 Months or Most Recently Relevant to Health Maintenance Insurance MEDICARE PART A AND B MEDICAID [place] Advance Directives For more information, please contact: [phone] Documents on File Type Date Recorded Patient Housing And Residence Life Director Expl anation Advance Directive POA 01/20/2013 8:55 AM A dvance Directive POA Care Teams Information Support Project Manager Relationship Specialty Start Date End Date Cuba Solano MD PCP - General 07/11/09
--- OUTSIDE RECORDS SUMMARY | 2025-01-21 20:40 | XMS_ITS | Patient Health Record ---
Author Organization [facility] Address [address] [place] [address] Care Team Providers Care Technical Stenographer Name Role Phone EDI SAMUELS Unavailable [phone] DUNG, JULIE Unavailable [phone] Kain Marroquin Unavailable [phone] Allergies Allergen (clinical drug ingredient) Drug/Non Drug Allergy documented on EMR Reaction Allergy Type Onset Date Status Substance with sulfonamide structure and antibacterial mechanism of action (substance) Sulfa drugs (uncoded) Unknown Allergy Active Substance with penicillin structure and antibacterial mechanism of action (substance) Penicillins Unknown Drug Allergy Active Results Component Value Reference Range Notes Glucometer WBG Reviewed date:01/03/2025 04:50:43 PM Interpretation: Performing Lab: Notes/Report: Glucometer WBG 128 65-110 MG/DL Asymptomatic~Meter: [id number]~[place] [employer]ctor: [id number] [id number] Testing performed at: [address] [place] [address] CLIA ID [id number] Glucometer WBG Reviewed date:01/03/2025 04:50:43 PM Interpretation: Performing Lab: Notes/Report: Glucometer WBG 118 65-110 MG/DL Asymptomatic~Meter: [id number]~[place] [employer]ctor: [id number] MARY BATES Testing performed at: [address] [place] [address] CLIA ID [id number] CBC w/ Auto Diff Reviewed date:01/02/2025 11:41:10 AM Interpretation: Performing Lab: Notes/Report: Diagnosis Description: Type 2 diabetes mellitus without complications Diagnosis Description: Essential (primary) hypertension Diagnosis Description: Encounter for preprocedural laboratory examination Diagnosis Description: Age-related physical debility Diagnosis Description: Encounter for other preprocedural examination Diagnosis Description: Type 2 diabetes mellitus without complications Diagnosis Description: Essential (primary) hypertension Diagnosis Description: Encounter for preprocedural laboratory examination Diagnosis Description: Age-related physical debility Testing performed at: [address] [place] [address] CLIA ID [id number] Diagnosis Description: Encounter for other preprocedural examination WBC 4.4 4.5-11.0 X10'3 RBC 3.33 4.50-5.90 X10'6 Hgb 9.6 13.5-17.5 G/DL Hct 28.9 41.0-53.0 % MCV 86.8 80.0-100.0 FL MCH 28.8 27.0-31.0 PG MCHC 33.2 31.0-37.0 G/DL Platelet 150 150-400 X10'3 RDW-SD 58.8 35.0-49.0 FL RDW-CV 18.3 12.2-15.6 % MPV 10.4 9.2-12.0 FL Neutro Auto% 68.9 40.0-70.0 % Lymph Auto% 12.0 22.0-44.0 % [place] Auto% 13.3 3.0-7.0 % Eos Auto% 4.6 2.0-4.0 % Baso Auto% 0.5 0.0-1.0 % Imm Gran% .7 .0-.4 % Neutro Abs 3.00 .80-7.70 Absolute Neutrophil Count 3000 Lymph Abs .52 .10-4.10 [place] Abs .58 .20-1.00 Eos Abs .20 .00-.40 Baso Abs .02 .00-.20 Imm Gran Abs .03 .00-.10 NRBC# .00 .00-.20 NRBC% .00 .00-.20 /100 intact WBC's Reason For Referral No Information Medications Medication [...] Active Atorvastatin Calcium 20 MG 1 tablet Orally Once a day Active Simbrinza 1-0.2 % [...] d ear Otic Twice a day Active oxyBUTYnin Chloride ER 5 MG 1 tablet Orally Once a day; Duration: 30 days 01/17/2025 02/16/2025 Active Dulcolax 5 MG 1 tablet as [...] Interpretation Negative Section Notes: chews tabacco alcohol forme r stopped 1993 chews tabacco alcohol form er stopped 1993 Problems Problem Type SNOMED Code ICD Code Onset Dates Problem Status W/U Status Risk Notes Problem Essential hypertension (12078466) Essential (primary) hypertension (I10) Active confirmed Problem Type II diabetes mellitus without complication (852106938) Type 2 diabetes mellitus without complication, unspecified whether terminal computer operator insulin use (E11.9) Active confirmed Problem Heart failure (49296827) Chronic congestive heart failure, unspecified heart failure type (I50.9) Active confirmed Problem COPD - Chronic obstructive pulmonary disease (03663277) Chronic obstructive pulmonary disease, unspecified COPD type (J44.9) Active confirmed Problem Advanced age (76994097) Advanced age (R54) Active confirmed Vital Signs Heart Rate 116 /min 12/27/2024 Height-cm 182.88 cm 12/27/2024 Blood pressure diastolic 64 mm Hg 12/27/2024 Weight-kg 135.17 kg 12/27/2024 Height 72 in 12/27/2024 Blood pressure systolic 116 mm Hg 12/27/2024 Weight 298 lbs 12/27/2024 BMI 40.41 kg/m2 12/27/2024 Encounters Encounter Location Date Provider Diagnosis [facility] [address] [place] [address] 01/03/2025 EDI SAMUELS [facility] [address] [place] [address] 11/21/2024 Kain Marroquin Urinary frequency R3 5.0 ; Urinary urgency R39.15 and Weak urinary stream R39.12 [facility] [address] [place] [address] 12/27/2024 Kain Marroquin Pre-op testing Z01.8 18 ; Urinary frequency R35.0 ; Urinary urgency R39.15 and Weak urinary stream R39.12 [facility] [address] [place] [address] 11/02/2024 Kain Marroquin [facility] [address] [place] [address] 11/22/2024 Kain Marroquin [facility] [address] [place] [address] 12/25/2024 Kain Marroquin sifonry, [facility] [address] [place] [address] 12/26/2024 EDI FUENTES Pre-op testing Z01.8 18 ; Advanced age R54 ; Pre-procedure lab exam Z01.812 ; Preop cardiovascular exam Z01.810 ; Essential (primary) hypertension I10 ; Type 2 diabetes mellitus without complication, unspecified whether prison insulin use E11.9 ; Chronic congestive heart failure, unspecified heart failure type I50.9 and Chronic obstructive pulmonary disease, unspecified COPD type J44.9 DO NOT USE THIS FACILITY [employer] [address] [place], [place] [id number] 01/17/2025 EDI FUENTES Assessments Encounter Date Diagnosis (ICD Code) Assessment Notes Treatment Notes Treatment Clinical Notes Section Notes 12/26/2024 Pre-op testing (ICD-10 - Z01.818) 12/27/2024 [...] in need of presurgical labs, however, the race car driver is unable to take patient to [...] in need of presurgical labs, however, the race car driver is unable to take patient to [...] questions, and patient satisfied with plan. 11/21/2024 Urinary urgency (ICD-10 - R39.15) We [...] at our clinic. 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 Continue flomax BID at this time. For now, and at this time, I am unable to assess if he is in retention or not. He is requesting pereira be placed and I am unable to even attempt this here at our clinic. I recommended that his [place] facility can try, but if unsuccessful, they [...] and counseling patient was 55 minutes. 11/21/2024 Weak urinary stream (ICD-10 - R39.12) [...] at our clinic. I recommended that his [place] facility can try, but if unsuccessful, they [...] in need of presurgical labs, however, the race car driver is unable to take patient to [...] in need of presurgical labs, however, the race car driver is unable to take patient to [...] 2 diabetes mellitus without complication, unspecified whether prison insulin use (ICD-10 - E11.9) 12/26/2024 Chronic congestive heart failure, unspecified heart failure type (ICD-10 - I50.9) 12/26/2024 Chronic obstructive pulmonary disease, unspecified COPD type (ICD-10 - J44.9) Plan Of Treatment Pending Test Test Name Order Date Urinalysis, Routine 12/27/2024 Basic Metabolic Panel 12/26/2024 Electrocardiogram, 12 Lead Tracing-[id number] 12/26/2024 Chest PA/Lat--[id number] 12/26/2024 Next Appt Details Provider Name:EDI Salas, 01/22/2025 02:35:00 PM, [address] [place], [address], Insurance Providers Payer Name Payer Address Payer Phone Subscriber Number Group Number Insured Name Patient Relationship to Insured Coverage Start Date Coverage End Date [place] [address] [address] [place], [place] [id number] GavinMarciano Self - patient is the insured [place] Medicaid [address] [place], [place] [id number] [place], Marciano Self - patient is the insured Medical (General) History Medical History History ICD Code COPD Sleep apnea Hypertension CHF Type 2 Diabetes GERD glaucoma Surgical History Surgery Date(Month/Year) left leg 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
[2025-01-21 20:45] LABS: Hematocrit 27.0 % (37-53); Hemoglobin 8.50 g/dL (11.27-16.99); Mean Corpuscular HGB Conc 31.5 g/dL (30-55); Mean Corpuscular Hemoglobin 27.7 pg (27-33); Mean Corpuscular Volume 87.9 fl (82-101); Nucleated Red Blood Cells % 0 %; Platelet Count 119 10^3/cmm (157-399); Red Blood Count 3.07 10^6/uL (3.85-5.65); White Blood Count 4.23 10^3/uL (3.29-11.43)
--- NOTE | 2025-01-21 20:57 | XRR_ITS ---
PROCEDURE INFORMATION: Exam: XR Chest Exam date and time: 01/21/2025 9:03 PM Age: 59 years old Clinical indication: Shortness of breath; Prior surgery; Surgery date: 6+ months; Surgery type: Left shoulder; C/O SOB; Additional info: Short of breath TECHNIQUE: Imaging protocol: Radiologic exam of the chest. Views: 1 view. COMPARISON: CT chest w con* [id number] 01/13/2025 10:04 PM FINDINGS: Lungs: Infrahilar streakiness in the haziness on the right, can not exclude mild edema or infiltrate. Nonvisualization of left diaphragm, can not exclude small effusion or infiltrate. Pleural spaces: Lucency at the left lung apex, likely positional and related to skin fold rather than pneumothorax although clinical correlation recommended. Heart/Mediastinum: [id number] cardiomegaly. Bones/joints: Probable old right-sided rib fractures. Other findings: Nonstandard positioning. XR/XR chest 1V portable [id number] IMPRESSION: 1. Infrahilar streakiness in the haziness on the right, can not exclude mild edema or infiltrate. 2. Nonvisualization of left diaphragm, can not exclude small effusion or infiltrate.
[2025-01-21 20:58] LABS: INR 1.39 (0.8-1.2); Prothrombin Time 18.00 SECONDS (12.1-14.9)
[2025-01-21 21:17] LABS: NT Pro B Type Natriuretic Pept 1030 pg/mL (0-125); Procalcitonin 0.15 ng/mL (0-0.5)
[2025-01-21] MEDS: methylPREDNISolone sod succ 125 mg/2 mL INJ 80 MG IVP (21:26)
[2025-01-21 21:28] LABS: Alanine Aminotransferase 34 U/L (0-41); Albumin Level 3.3 g/dL (3.5-5.2); Alkaline Phosphatase 121 U/L (40-130); Anion Gap 18.5 (5-19); Aspartate Amino Transferase 77 U/L (0-40); Blood Urea Nitrogen 19 mg/dL (8-23); Calcium 8.7 mg/dL (8.5-10.5); Carbon Dioxide 19 mmol/L (22-29); Chloride 99 mmol/L (98-107); Creatinine Clr Calc Pharmacy 134.8233; Globulin 3.5 g/dL (1.3-4.6); Glucose 252 mg/dL (65-115); Osmolality Calculated 285 mOsm/kg (285-295); Potassium 4.5 mmol/L (3.5-5.1); Sodium 132 mmol/L (136-145); Total Protein 6.8 g/dL (6.6-8.7)
[2025-01-21 21:42] LABS: Respiratory Syncytial Virus Ce NEGATIVE (Negative); SARS-CoV-2 PCR NEGATIVE (Negative)
--- NOTE | 2025-01-21 22:40 | PC.NURSE ---
Nurse called [facility] at talked to nurse about pts care and discharge plan. [facility] nurse states no further questions on the discharge plan.
== END 2025-01-21 23:34 | disposition home or self-care (01) ==
PROVIDERS: Emergency Provider Physician Assistant; PCP Internal Medicine
DX: J44.1 Chronic obstructive pulmonary disease with (acute) exacerbation (principal); G93.31 Postviral fatigue syndrome
CPT/HCPCS: 36416; 71045; 80053; 82962; 83880; 84145; 85025; 85610; 87637; 93005; 94640; 96372; 96374; 99285; J1815; J2919; J9999

== ENCOUNTER 2025-02-08 10:51 | Day surgery (SDC) | payer MEDICARE, MEDICAID, SELFPAY ==
[2025-02-08 11:14] VITALS: BP 119/60; PULSE 100; RESP 16; TEMP 36.6; O2SAT 97
--- NOTE | 2025-02-08 11:17 | US_ITS ---
WS: [id number] Abdominal ultrasound, limited. History: Evaluate for ascites. Comparison: None. All 4 quadrants are imaged by ultrasound to evaluate for ascites. There is a very small amount of fluid in the RIGHT upper quadrant. No significant amount of ascites. US/US abdomen lmt fluid [id number] IMPRESSION: No significant ascites. Insufficient for paracentesis.
--- NOTE | 2025-02-08 12:00 | SUR.OPER ---
Pt to GI lab for US guided paracentesis. Not enough fluid to drain per radiologist. Pt assisted back to wheelchair via wilmer lift. [facility] transportation to take pt back to [facility]. Pt nurse, Diandra, called at [facility] and updated that paracentesis was not performed due to not enough fluid.
== END 2025-02-08 12:00 | disposition home or self-care (01) ==
PROVIDERS: Radiology Diagnostic Radiology; PCP Internal Medicine; Visit Provider Internal Medicine
DX: R18.8 Other ascites (principal)
CPT/HCPCS: 49083; 76705

== ENCOUNTER 2025-02-09 12:16 | Inpatient (IN) | payer MEDICARE, MEDICAID, SELFPAY ==
[2025-02-09] VITALS (8 sets, daily range): BP systolic 90–122; BP diastolic 45–83; PULSE 105–120; RESP 16–24; TEMP 36.6–37.4; O2SAT 90–95; BMI 50.5; BMI 56.2
--- NOTE | 2025-02-09 12:24 | ECG_ITS ---
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 Hospital: : [id number] Requested By: Keiry Green Order Number: [id number] Reading MD: JARRETT DESAI Measurements Intervals [place] Rate: 119 P: 0 DE: 0 QRS: -77 QRSD: 113 T: 0 QT: 245 QTc: 346 Interpretive Statements ATRIALFIB WITH RAPID VENTRICULAR RESPONSE LOW QRS VOLTAGE [QRS DEFLECTION < 0.5/1.0 mV IN LIMB/CHEST LEADS] POSSIBLE RIGHT VENTRICULAR CONDUCTION DELAY [RSR (QR) IN V1/V2] INFERIOR MYOCARDIAL INFARCTION , PROBABLY OLD [40+ ms Q WAVE AND/OR ST/T ABNORMALITY IN II/aVF] ANTEROLATERAL MYOCARDIAL INFARCTION , OF INDETERMINATE AGE [40+ ms Q WAVE IN I/aVL/V3-V6] Compared to ECG 01/21/2025 20:38:13 No significant changes Electronically Signed On 02-11-2025 23:20:41 CDT by JARRETT DESAI [email or web address]
--- NOTE | 2025-02-09 12:33 | W.ED.SOB ---
Documented by User: VIVIANE Reyes 02/09/25 18:05 HPI - SOB/Dyspnea General: Chief Complaint: Shortness of Breath/Dyspnea Stated Complaint: sob - n/v/d - chest pain Time Seen by Provider: 02/09/25 12:17 History of Present Illness: HPI Narrative: Patient is a 59-year-old gentleman with diastolic CHF, chronic atrial fibrillation on Eliquis and amiodarone, presents to the emergency room with shortness of breath. He had diarrhea that started about 10 AM today, and nausea and vomiting x 1. No history of C. difficile. Chronically on moxifloxacin. As far as his CHF, he has had a 25 pound weight gain in the last 2 weeks. [place] attempted paracentesis and did not receive any fluid yesterday. He is chronically on Lasix 80 mg twice daily, and metolazone 5 mg daily. Denies any chest pain. His only complaint is his shortness of breath, diarrhea, and his nausea and vomiting x 1 Associated symptoms: Reports nausea and vomiting; Deny abdominal pain, chest pain, extremity pain, fever(s) or palpitations Related Data Home Medications ?Medication ?Instructions ?Recorded ?Confirmed allopurinol 300 mg tablet 300 mg PO DAILY 05/08/19 02/09/25 carboxymethylcellulose sodium 0.5 1 drop ophthalmic (eye) DAILY PRN 05/08/19 02/09/25 % eye drops (Refresh Tears) Dry Eyes cholecalciferol (vitamin D3) 25 1,000 unit PO DAILY 05/08/19 02/09/25 mcg (1,000 unit) capsule montelukast 10 mg tablet 10 mg PO BEDTIME 05/08/19 02/09/25 metoclopramide HCl 10 mg tablet 10 mg PO Q6H PRN Indigestion 04/16/22 02/09/25 (Reglan) spironolactone 25 mg tablet 12.5 mg PO DAILY 09/18/22 02/09/25 multivit-minerals no.60-ferrous 1 tab PO DAILY 10/16/22 02/09/25 fumarate-folic acid 27 mg-1 mg tablet (Niva-Plus) metoprolol tartrate 100 mg tablet 100 mg PO BID 12/28/23 02/09/25 bisacodyl 10 mg rectal suppository 10 mg RI DAILY PRN Constipation 04/24/24 02/09/25 (Dulcolax (bisacodyl)) esomeprazole magnesium 40 mg 40 mg PO BID 04/24/24 02/09/25 capsule,delayed release lidocaine 5 % topical patch 1 patch topical BID 04/24/24 02/09/25 magnesium hydroxide 400 mg/5 mL 5 ml PO DAILY PRN Constipation 04/24/24 02/09/25 oral suspension (Milk of Magnesia) sodium phosphates 19 gram-7 118 ml RI DAILY PRN Constipation 04/24/24 02/09/25 gram/118 mL enema (Fleet Enema) tamsulosin 0.4 mg capsule (Flomax) 0.4 mg PO BID 04/24/24 02/09/25 acetaminophen 500 mg capsule 500 mg PO Q6H PRN pain or fever 09/08/24 02/09/25 budesonide 160 mcg-glycopyr 9 2 inh inhalation BID 09/08/24 02/09/25 mcg-formot 4.8 mcg/actuation HFA inhaler (gauzzzFlamsredi Aerosphere) polyethylene glycol 3350 17 gram 17 g PO DAILY 09/08/24 02/09/25 oral powder packet sennosides 8.6 mg tablet (senna) 8.6 mg PO BID 09/08/24 02/09/25 albuterol sulfate 2.5 mg/3 mL 2.5 mg inhalation Q6H PRN Dyspnea 02/05/25 02/09/25 (0.083 %) solution for nebulization atorvastatin 20 mg tablet 20 mg PO DAILY 02/05/25 02/09/25 brimonidine 0.2 % eye drops 1 drp ophthalmic (eye) BID 02/05/25 02/09/25 brinzolamide 1 % eye 1 drp ophthalmic (eye) BID 02/05/25 02/09/25 drops,suspension diclofenac sodium 1 % topical gel 2 g topical TID PRN Pain 02/05/25 02/09/25 furosemide 40 mg tablet 40 mg PO BID 02/05/25 02/09/25 insulin aspart U-100 100 unit/mL 60 unit SUBCUT TID 02/05/25 02/09/25 (3 mL) subcutaneous pen insulin degludec 100 unit/mL (3 150 unit SUBCUT BEDTIME 02/05/25 02/09/25 mL) subcutaneous pen (Tresiba FlexTouch U-100 insulin) latanoprost 0.005 % eye drops 1 drp ophthalmic (eye) BEDTIME 02/05/25 02/09/25 oxybutynin chloride 5 mg tablet 5 mg PO DAILY 02/05/25 02/09/25 white petrolatum-mineral oil 94 1 applic ophthalmic (eye) BEDTIME 02/05/25 02/09/25 %-3 % eye ointment (Systane Nighttime) bisacodyl 5 mg tablet 10 mg PO DAILY PRN Constipation 02/09/25 02/09/25 triamcinolone acetonide 0.1 % 1 applic topical BID PRN skin 02/09/25 02/09/25 topical cream irritation on ears Previous Rx's ?Medication ?Instructions ?Recorded fluticasone propionate 50 1 spray intranasal BID #15.8 mL 07/18/19 mcg/actuation nasal spray,suspension hydrocodone 5 mg-acetaminophen 325 1 tab PO TID PRN pain 30 days #90 02/05/21 mg tablet tabs apixaban 5 mg tablet (Eliquis) 5 mg PO BID #180 tabs 04/06/23 amiodarone 200 mg tablet 200 mg PO DAILY #90 tabs 09/09/23 pregabalin 50 mg capsule 50 mg PO TID #90 caps 03/22/24 moxifloxacin 400 mg tablet 400 mg PO DAILY 7 days #7 tabs 02/06/25 prednisone 20 mg tablet 20 mg PO DAILY #5 tabs 02/06/25 Allergies Allergy/AdvReac Type Severity Reaction Status Date / Time Penicillins Allergy ALGY-Hives Verified 02/05/25 13:27 Sulfa (Sulfonamide Allergy ALGY-Hives Verified 02/05/25 13:27 Antibiotics) Review of Systems General: Reports: 10 or more systems reviewed and unremarkable except in HPI and below Const: Denies: fever(s), chills, body aches, fatigue or malaise ENMT: Denies: throat pain or nasal congestion Card: Denies: chest pain or palpitations Resp: Reports: dyspnea and non-productive cough GI: Reports: nausea, vomiting, diarrhea and excessive flatus; Denies: abdominal pain or pain on defecation : Denies: flank pain or difficulty urinating Musc: Denies: neck pain or extremity pain Skin/Breast: Denies: rash or pruritus Neuro: Denies: headache(s) or numbness in extremities Psych: Denies: anxiety or depression PFSH ED PFSH: Medical History (Updated 02/09/25 @ 18:16 by Trell Negron DO) Sleep apnea, unspecified Constipation Dry eye syndrome of unspecified lacrimal gland Unspecified glaucoma Gastro-esophageal reflux disease without esophagitis Benign prostatic hyperplasia without lower urinary tract symptoms Gout, unspecified Hyperlipidemia, unspecified 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 heart failure shelter (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 of 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 Muscle weakness (generalized) COPD (chronic obstructive pulmonary disease) 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 Chronic atrial fibrillation, unspecified Open wound of left lower quadrant of abdominal wall without penetration into peritoneal cavity Intertriginous dermatitis associated with moisture Morbid obesity Atrial flutter Encounter for screening colonoscopy Repeat screening colonoscopy in 10 years unless otherwise specified Chronic low back pain Chronic right shoulder pain Diabetes mellitus Shoulder pain BILATERAL Encounter for long-term use of opiate analgesic Right knee pain Amputation above knee Left Diabetes type 2, controlled Essential hypertension Dysuria-frequency syndrome Seizure BPH (benign prostatic hyperplasia) Primary osteoarthritis of both knees r knee Sleep apnea Surgical History History of left above knee amputation History of shoulder surgery 2002 x 2 L shoulder Family History Other Heart disease Hypertension Social History (Updated 02/09/25 @ 16:44 by Uvaldo Stark MD) Smoking and tobacco/nicotine status: current some day tobacco/nicotine user smokeless tobacco Smokeless tobacco user: chewing tobacco Smokeless tobacco details: 2 cans a day Quit status (tobacco/nicotine): not considering quitting Second hand smoke exposure: No Alcohol intake: never Substance/Drug Use: never Additional social history: Patient chews a can of tobacco daily. 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 Physical Exam Const: COMMON NORMALS: no acute distress, average body habitus and patient oriented x3 HENMT: COMMON NORMALS: normocephalic and atraumatic HEAD & SCALP: normocephalic and atraumatic Eye: COMMON NORMALS: Equal, round and reactive pupils present and EOMs intact bilaterally PUPIL: Yes Equal, round and reactive pupils present Neck/C-Spine: COMMON NORMALS: full ROM and no lymphadenopathy Lymph: LYMPHATIC: no lymphadenopathy noted Chest: COMMONS NORMALS: normal inspection of the chest and normal palpation of entire chest wall Resp: COMMON NORMALS: normal respiratory effort, No retractions and clear to auscultation bilaterally AUSCULTATION: clear to auscultation bilaterally Cardio: COMMON NORMALS: regular rate and regular rhythm RATE: regular rate RHYTHM: regular rhythm GI: COMMON NORMALS: Normal to inspection, nondistended, normoactive bowel sounds present, Soft to palpation, non-tender and No hepatosplenomegaly present PALPATION: Yes Soft to palpation and Yes No hepatosplenomegaly present : COMMON NORMALS: Yes no CVA tenderness BLADDER/KIDNEY EXAM: Yes no CVA tenderness Back/Pelvis: COMMON NORMALS: no CVA tenderness Extremity: COMMON NORMALS: normal to inspection, full ROM and capillary refill normal Neuro: COMMON NORMALS: patient oriented x3 Psych: COMMON NORMALS: mental status grossly normal, Normal thought process present and cooperative THOUGHT PROCESS: Normal thought process present Skin: COMMON NORMALS: no rashes or lesions noted, no wounds and turgor normal GENERAL SKIN EXAM: no rashes or lesions noted and turgor normal Course Consultations: Consultation #1: Dr. Stark accepted observation after CT of abdomen and pelvis. He will evaluate patient at bedside. Vital Signs: Vital signs: Vital Signs Temperature 99.3 F 02/09/25 17:40 Pulse Rate 111 H 02/09/25 17:40 Respiratory Rate 23 H 02/09/25 17:40 Blood Pressure 90/45 02/09/25 17:40 Pulse Oximetry 94 02/09/25 17:40 Oxygen Delivery Me thod Room Air 02/09/25 17:40 MDM - SOB/Dyspnea Medical Decision Making 59-year-old male that has presented to the ED due to 25 pound weight gain in last 2 weeks, Lasix increased to 80 mg twice daily, metolazone added at 5 mg daily, with attempted paracentesis yesterday at [facility]. Sister now relates that a paracentesis was not able to be done after ultrasonography yesterday. Additionally, he had a liver biopsy Wednesday, with results pending. Therefore he did have entry into his abdomen. He has profuse diarrhea, requiring rectal tube, was C. difficile negative. He had nausea and vomiting x 1 today. Plan is for observation after CT of abdomen and pelvis as per Dr. Stark. Patient's heart rate is elevated in the 1 teens, with atrial fibrillation, which is chronic, however fluid replacement was not done given his history, although appears that he would tolerate fluid replenishment. Stool for ova and parasites, and culture has been added. Considered Shigella, however renal function is appropriate preserved Lab Data 02/09/25 13:01 02/09/25 13:45 Labs/Radiology: Radiology Impressions Chest/Abdomen/Pelvis CT 02/09/25 14:46 IMPRESSION: 1. Moderate left pleural effusion with adjacent compressive atelectasis. 2. Atherosclerotic vascular disease. Coronary artery calcifications. IMPRESSION: 1. Limited exam due to patient positioning within the gantry with significant artifact noted. 2. Splenomegaly. 3. High-density left renal exophytic cyst. A cyst in a similar location is seen on the prior MRI from 12/25/2024. 4. Anasarca/edema involving the anterior abdominal wall. 5. No obstructive appearing air-fluid levels. COMMENTS: 1. Consistent with the [employer]'s Incidental Findings Committee white paper (J Am Henrique Radiol 2018): Any incidental renal lesion less than 1 cm or classified as too small to characterize, or any incidental cystic renal lesion characterized as simple-appearing, is likely benign. No follow-up imaging is recommended for these lesions per consensus recommendations based on imaging criteria. 2. Consistent with the [place]'s Incidental Findings Committee white paper (J Am Henrique Radiol 2017): For any incidental adrenal lesion greater than or equal to 1 cm but less than or equal to 4 cm classified in this report as benign, likely benign, or containing fat (including classification as an adenoma or myelolipoma), no follow-up imaging is recommended per consensus recommendations based on imaging criteria. Further lab evaluation could be pursued if warranted based on clinical findings. Laboratory Results WBC 10.72 10^3/uL (3.29-11.43) 02/09/25 13:01 RBC 3.50 10^6/uL (3.85-5.65) L 02/09/25 13:01 Hgb 9.20 g/dL (11.27-16.99) L 02/09/25 13:01 Hct 29.4 % (37-53) L 02/09/25 13:01 MCV 84.0 fl (82-101) 02/09/25 13:01 MCH 26.3 pg (27-33) L 02/09/25 13:01 MCHC 31.3 g/dL (30-55) 02/09/25 13:01 RDW 16.7 % (12.1-15.1) H 02/09/25 13:01 Plt Count 127 10^3/cmm (157-399) L 02/09/25 13:01 MPV 11.1 fL (7.4-10.4) H 02/09/25 13:01 Neut % (Auto) 87.6 % 02/09/25 13:01 Lymph % (Auto) 3.2 % 02/09/25 13:01 Bowie % (Auto) 7.3 % 02/09/25 13:01 Eos % (Auto) 1.2 % 02/09/25 13:01 Baso % (Auto) 0.2 % 02/09/25 13:01 Neut # (Auto) 9.40 10^3/uL (1.8-7.7) H 02/09/25 13:01 Lymph # (Auto) 0.3 10^3/uL (0.8-4.8) L 02/09/25 13:01 Bowie # (Auto) 0.8 10^3/uL (0.2-0.9) 02/09/25 13:01 Eos # (Auto) 0.1 10^3/uL (0.0-0.8) 02/09/25 13:01 Baso # (Auto) 0.0 10^3/uL (0.0-0.1) 02/09/25 13:01 Nucleated RBC % (auto) 0 % 02/09/25 13:01 Nucleated RBCs # 0.0 /100WBC 02/09/25 13:01 Sodium 135 mmol/L (136-145) L 02/09/25 13:45 Potassium 3.8 mmol/L (3.5-5.1) 02/09/25 13:45 Chloride 101 mmol/L (98-107) 02/09/25 13:45 Carbon Dioxide 20 mmol/L (22-29) L 02/09/25 13:45 Anion Gap 17.8 (5-19) 02/09/25 13:45 BUN 28 mg/dL (8-23) H 02/09/25 13:45 Creatinine 1.0 mg/dL (0.7-1.2) 02/09/25 13:45 GFR Calculation 76.0 mL/min (90-130) L 02/09/25 13:45 Glucose 68 mg/dL (65-115) 02/09/25 13:45 POC Glucose 97 mg/dL (70-110) 02/09/25 15:26 Calculated Osmolality 284 mOsm/kg (285-295) L 02/09/25 13:45 Lactic Acid 1.7 mmol/L (0.5-2.2) 02/09/25 13:45 Calcium 8.2 mg/dL (8.5-10.5) L 02/09/25 13:45 Magnesium 1.7 mg/dL (1.7-2.3) 02/09/25 13:45 Total Bilirubin 1.6 mg/dL (0.15-1.2) H 02/09/25 13:45 AST 66 U/L (0-40) H 02/09/25 13:45 ALT 39 U/L (0-41) 02/09/25 13:45 Alkaline Phosphatase 91 U/L (40-130) 02/09/25 13:45 Ammonia 78 umol/L (16-60) H 02/09/25 13:45 Troponin T Baseline 53 ng/L (0-15) H 02/09/25 13:45 Troponin T 120 Minute 55.99 ng/L (0-15) H 02/09/25 15:57 Delta Troponin T 2.99 ABS# (0-10) 02/09/25 15:57 C-Reactive Protein 10.6 mg/L (0.0-4.9) H 02/09/25 13:45 NT-Pro-B Natriuret Pep 1575 pg/mL (0-125) H 02/09/25 13:45 Total Protein 5.8 g/dL (6.6-8.7) L 02/09/25 13:45 Albumin 3.5 g/dL (3.5-5.2) 02/09/25 13:45 Globulin 2.3 g/dL (1.3-4.6) 02/09/25 13:45 Lipase 64 U/L (13-60) H 02/09/25 13:45 Procalcitonin 0.15 ng/mL (0-0.5) 02/09/25 13:45 TSH 1.51 uIU/mL (0.27-4.20) 02/09/25 13:45 Urine Color Yellow (Yellow) 02/09/25 14:57 Urine Appearance Clear (CLEAR) 02/09/25 14:57 Urine pH 6.0 (5-7) 02/09/25 14:57 Ur Specific Golden 1.016 (1.005-1.030) 02/09/25 14:57 Urine Protein Trace (Negative) A 02/09/25 14:57 Urine Glucose (UA) Negative (Normal) 02/09/25 14:57 Urine Ketones Negative (Negative) 02/09/25 14:57 Urine Blood 2+ (Negative) A 02/09/25 14:57 Urine Nitrate Negative (Negative) 02/09/25 14:57 Urine Bilirubin Negative (Negative) 02/09/25 14:57 Urine Urobilinogen 1.0 mg/dL (Negative) 02/09/25 14:57 Ur Leukocyte Esterase 2+ (Negative) A 02/09/25 14:57 Urine RBC 5-10 /hpf (0-2) H 02/09/25 14:57 Urine WBC 5-10 /hpf (0-5) H 02/09/25 14:57 Ur Squamous Epith Cells 0-4 /hpf (0-5) H 02/09/25 14:57 Amorphous Sediment 1+ /hpf 02/09/25 14:57 Urine Bacteria 1+ /hpf (NONE) H 02/09/25 14:57 C. difficile (PCR) Negative (Negative) 02/09/25 13:00 All radiology interpretation(s) finalized by discharge EKG Data EKG 1: Interpretation: Atrial fibrillation with rapid ventricular response at rate 111 Discharge Plan Discharge Patient Disposition: Admitted As Inpatient Admit Provider: Uvaldo Stark Clinical Impression: Gastroenteritis, Atrial fibrillation, JESSICA (acute kidney injury) Condition: Stable Coding Level of Care Code ED Bitumastic Applier for Chg Fwd Documented by User: Trell Negron DO 02/09/25 18:16 HPI - SOB/Dyspnea General: Chief Complaint: Shortness of Breath/Dyspnea Stated Complaint: sob - n/v/d - chest pain Time Seen by Provider: 02/09/25 12:17 Related Data Home Medications ?Medication ?Instructions ?Recorded ?Confirmed allopurinol 300 mg tablet 300 mg PO DAILY 05/08/19 02/09/25 carboxymethylcellulose sodium 0.5 1 drop ophthalmic (eye) DAILY PRN 05/08/19 02/09/25 % eye drops (Refresh Tears) Dry Eyes cholecalciferol (vitamin D3) 25 1,000 unit PO DAILY 05/08/19 02/09/25 mcg (1,000 unit) capsule montelukast 10 mg tablet 10 mg PO BEDTIME 05/08/19 02/09/25 metoclopramide HCl 10 mg tablet 10 mg PO Q6H PRN Indigestion 04/16/22 02/09/25 (Reglan) spironolactone 25 mg tablet 12.5 mg PO DAILY 09/18/22 02/09/25 multivit-minerals no.60-ferrous 1 tab PO DAILY 10/16/22 02/09/25 fumarate-folic acid 27 mg-1 mg tablet (Niva-Plus) metoprolol tartrate 100 mg tablet 100 mg PO BID 12/28/23 02/09/25 bisacodyl 10 mg rectal suppository 10 mg RI DAILY PRN Constipation 04/24/24 02/09/25 (Dulcolax (bisacodyl)) esomeprazole magnesium 40 mg 40 mg PO BID 04/24/24 02/09/25 capsule,delayed release lidocaine 5 % topical patch 1 patch topical BID 04/24/24 02/09/25 magnesium hydroxide 400 mg/5 mL 5 ml PO DAILY PRN Constipation 04/24/24 02/09/25 oral suspension (Milk of Magnesia) sodium phosphates 19 gram-7 118 ml RI DAILY PRN Constipation 04/24/24 02/09/25 gram/118 mL enema (Fleet Enema) tamsulosin 0.4 mg capsule (Flomax) 0.4 mg PO BID 04/24/24 02/09/25 acetaminophen 500 mg capsule 500 mg PO Q6H PRN pain or fever 09/08/24 02/09/25 budesonide 160 mcg-glycopyr 9 2 inh inhalation BID 09/08/24 02/09/25 mcg-formot 4.8 mcg/actuation HFA inhaler (Breztri Aerosphere) polyethylene glycol 3350 17 gram 17 g PO DAILY 09/08/24 02/09/25 oral powder packet sennosides 8.6 mg tablet (senna) 8.6 mg PO BID 09/08/24 02/09/25 albuterol sulfate 2.5 mg/3 mL 2.5 mg inhalation Q6H PRN Dyspnea 02/05/25 02/09/25 (0.083 %) solution for nebulization atorvastatin 20 mg tablet 20 mg PO DAILY 02/05/25 02/09/25 brimonidine 0.2 % eye drops 1 drp ophthalmic (eye) BID 02/05/25 02/09/25 brinzolamide 1 % eye 1 drp ophthalmic (eye) BID 02/05/25 02/09/25 drops,suspension diclofenac sodium 1 % topical gel 2 g topical TID PRN Pain 02/05/25 02/09/25 furosemide 40 mg tablet 40 mg PO BID 02/05/25 02/09/25 insulin aspart U-100 100 unit/mL 60 unit SUBCUT TID 02/05/25 02/09/25 (3 mL) subcutaneous pen insulin degludec 100 unit/mL (3 150 unit SUBCUT BEDTIME 02/05/25 02/09/25 mL) subcutaneous pen (Tresiba FlexTouch U-100 insulin) latanoprost 0.005 % eye drops 1 drp ophthalmic (eye) BEDTIME 02/05/25 02/09/25 oxybutynin chloride 5 mg tablet 5 mg PO DAILY 02/05/25 02/09/25 white petrolatum-mineral oil 94 1 applic ophthalmic (eye) BEDTIME 02/05/25 02/09/25 %-3 % eye ointment (Systane Nighttime) bisacodyl 5 mg tablet 10 mg PO DAILY PRN Constipation 02/09/25 02/09/25 triamcinolone acetonide 0.1 % 1 applic topical BID PRN skin 02/09/25 02/09/25 topical cream irritation on ears Previous Rx's ?Medication ?Instructions ?Recorded fluticasone propionate 50 1 spray intranasal BID #15.8 mL 07/18/19 mcg/actuation nasal spray,suspension hydrocodone 5 mg-acetaminophen 325 1 tab PO TID PRN pain 30 days #90 02/05/21 mg tablet tabs apixaban 5 mg tablet (Eliquis) 5 mg PO BID #180 tabs 04/06/23 amiodarone 200 mg tablet 200 mg PO DAILY #90 tabs 09/09/23 pregabalin 50 mg capsule 50 mg PO TID #90 caps 03/22/24 moxifloxacin 400 mg tablet 400 mg PO DAILY 7 days #7 tabs 02/06/25 prednisone 20 mg tablet 20 mg PO DAILY #5 tabs 02/06/25 Allergies Allergy/AdvReac Type Severity Reaction Status Date / Time Penicillins Allergy ALGY-Hives Verified 02/05/25 13:27 Sulfa (Sulfonamide Allergy ALGY-Hives Verified 02/05/25 13:27 Antibiotics) PFSH ED PFSH: Medical History (Updated 02/09/25 @ 18:16 by Trell Negron, ) Sleep apnea, unspecified Constipation Dry eye syndrome of unspecified lacrimal gland Unspecified glaucoma Gastro-esophageal reflux disease without esophagitis Benign prostatic hyperplasia without lower urinary tract symptoms Gout, unspecified Hyperlipidemia, unspecified 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 heart failure shelter (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 of 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 Muscle weakness (generalized) COPD (chronic obstructive pulmonary disease) 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 Chronic atrial fibrillation, unspecified Open wound of left lower quadrant of abdominal wall without penetration into peritoneal cavity Intertriginous dermatitis associated with moisture Morbid obesity Atrial flutter Encounter for screening colonoscopy Repeat screening colonoscopy in 10 years unless otherwise specified Chronic low back pain Chronic right shoulder pain Diabetes mellitus Shoulder pain BILATERAL Encounter for long-term use of opiate analgesic Right knee pain Amputation above knee Left Diabetes type 2, controlled Essential hypertension Dysuria-frequency syndrome Seizure BPH (benign prostatic hyperplasia) Primary osteoarthritis of both knees r knee Sleep apnea Surgical History History of left above knee amputation History of shoulder surgery 2002 x 2 L shoulder Family History Other Heart disease Hypertension Social History (Updated 02/09/25 @ 16:44 by Uvaldo Stark MD) Smoking and tobacco/nicotine status: current some day tobacco/nicotine user smokeless tobacco Smokeless tobacco user: chewing tobacco Smokeless tobacco details: 2 cans a day Quit status (tobacco/nicotine): not considering quitting Second hand smoke exposure: No Alcohol intake: never Substance/Drug Use: never Additional social history: Patient chews a can of tobacco daily. 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 Sister now relates that a paracentesis was not able to be done after ultrasonography yesterday. Additionally, he had a liver biopsy Wednesday, with results pending. Therefore he did have entry into his abdomen. He has profuse diarrhea, requiring rectal tube, was C. difficile negative. He had nausea and vomiting x 1 today. Plan is for observation after CT of abdomen and pelvis as per Dr. Stark. Patient's heart rate is elevated in the 1 teens, with atrial fibrillation, which is chronic, however fluid replacement was not done given his history, although appears that he would tolerate fluid replenishment. Stool for ova and parasites, and culture has been added. Considered Shigella, however renal function is appropriate preserved Chart reviewed and patient discussed with midlevel. Agree with assessment and plan. Lab Data 02/09/25 13:01 02/09/25 13:45 Labs/Radiology: Radiology Impressions Chest/Abdomen/Pelvis CT 02/09/25 14:46 IMPRESSION: 1. Moderate left pleural effusion with adjacent compressive atelectasis. 2. Atherosclerotic vascular disease. Coronary artery calcifications. IMPRESSION: 1. Limited exam due to patient positioning within the gantry with significant artifact noted. 2. Splenomegaly. 3. High-density left renal exophytic cyst. A cyst in a similar location is seen on the prior MRI from 12/25/2024. 4. Anasarca/edema involving the anterior abdominal wall. 5. No obstructive appearing air-fluid levels. COMMENTS: 1. Consistent with the [place]'s Incidental Findings Committee white paper (J Am Henrique Radiol 2018): Any incidental renal lesion less than 1 cm or classified as too small to characterize, or any incidental cystic renal lesion characterized as simple-appearing, is likely benign. No follow-up imaging is recommended for these lesions per consensus recommendations based on imaging criteria. 2. Consistent with the [place] [employer]'s Incidental Findings Committee white paper (J Am Henrique Radiol 2017): For any incidental adrenal lesion greater than or equal to 1 cm but less than or equal to 4 cm classified in this report as benign, likely benign, or containing fat (including classification as an adenoma or myelolipoma), no follow-up imaging is recommended per consensus recommendations based on imaging criteria. Further lab evaluation could be pursued if warranted based on clinical findings. Laboratory Results WBC 10.72 10^3/uL (3.29-11.43) 02/09/25 13:01 RBC 3.50 10^6/uL (3.85-5.65) L 02/09/25 13:01 Hgb 9.20 g/dL (11.27-16.99) L 02/09/25 13:01 Hct 29.4 % (37-53) L 02/09/25 13:01 MCV 84.0 fl (82-101) 02/09/25 13:01 MCH 26.3 pg (27-33) L 02/09/25 13:01 MCHC 31.3 g/dL (30-55) 02/09/25 13:01 RDW 16.7 % (12.1-15.1) H 02/09/25 13:01 Plt Count 127 10^3/cmm (157-399) L 02/09/25 13:01 MPV 11.1 fL (7.4-10.4) H 02/09/25 13:01 Neut % (Auto) 87.6 % 02/09/25 13:01 Lymph % (Auto) 3.2 % 02/09/25 13:01 Bowie % (Auto) 7.3 % 02/09/25 13:01 Eos % (Auto) 1.2 % 02/09/25 13:01 Baso % (Auto) 0.2 % 02/09/25 13:01 Neut # (Auto) 9.40 10^3/uL (1.8-7.7) H 02/09/25 13:01 Lymph # (Auto) 0.3 10^3/uL (0.8-4.8) L 02/09/25 13:01 Bowie # (Auto) 0.8 10^3/uL (0.2-0.9) 02/09/25 13:01 Eos # (Auto) 0.1 10^3/uL (0.0-0.8) 02/09/25 13:01 Baso # (Auto) 0.0 10^3/uL (0.0-0.1) 02/09/25 13:01 Nucleated RBC % (auto) 0 % 02/09/25 13:01 Nucleated RBCs # 0.0 /100WBC 02/09/25 13:01 Sodium 135 mmol/L (136-145) L 02/09/25 13:45 Potassium 3.8 mmol/L (3.5-5.1) 02/09/25 13:45 Chloride 101 mmol/L (98-107) 02/09/25 13:45 Carbon Dioxide 20 mmol/L (22-29) L 02/09/25 13:45 Anion Gap 17.8 (5-19) 02/09/25 13:45 BUN 28 mg/dL (8-23) H 02/09/25 13:45 Creatinine 1.0 mg/dL (0.7-1.2) 02/09/25 13:45 GFR Calculation 76.0 mL/min (90-130) L 02/09/25 13:45 Glucose 68 mg/dL (65-115) 02/09/25 13:45 POC Glucose 97 mg/dL (70-110) 02/09/25 15:26 Calculated Osmolality 284 mOsm/kg (285-295) L 02/09/25 13:45 Lactic Acid 1.7 mmol/L (0.5-2.2) 02/09/25 13:45 Calcium 8.2 mg/dL (8.5-10.5) L 02/09/25 13:45 Magnesium 1.7 mg/dL (1.7-2.3) 02/09/25 13:45 Total Bilirubin 1.6 mg/dL (0.15-1.2) H 02/09/25 13:45 AST 66 U/L (0-40) H 02/09/25 13:45 ALT 39 U/L (0-41) 02/09/25 13:45 Alkaline Phosphatase 91 U/L (40-130) 02/09/25 13:45 Ammonia 78 umol/L (16-60) H 02/09/25 13:45 Troponin T Baseline 53 ng/L (0-15) H 02/09/25 13:45 Troponin T 120 Minute 55.99 ng/L (0-15) H 02/09/25 15:57 Delta Troponin T 2.99 ABS# (0-10) 02/09/25 15:57 C-Reactive Protein 10.6 mg/L (0.0-4.9) H 02/09/25 13:45 NT-Pro-B Natriuret Pep 1575 pg/mL (0-125) H 02/09/25 13:45 Total Protein 5.8 g/dL (6.6-8.7) L 02/09/25 13:45 Albumin 3.5 g/dL (3.5-5.2) 02/09/25 13:45 Globulin 2.3 g/dL (1.3-4.6) 02/09/25 13:45 Lipase 64 U/L (13-60) H 02/09/25 13:45 Procalcitonin 0.15 ng/mL (0-0.5) 02/09/25 13:45 TSH 1.51 uIU/mL (0.27-4.20) 02/09/25 13:45 Urine Color Yellow (Yellow) 02/09/25 14:57 Urine Appearance Clear (CLEAR) 02/09/25 14:57 Urine pH 6.0 (5-7) 02/09/25 14:57 Ur Specific Golden 1.016 (1.005-1.030) 02/09/25 14:57 Urine Protein Trace (Negative) A 02/09/25 14:57 Urine Glucose (UA) Negative (Normal) 02/09/25 14:57 Urine Ketones Negative (Negative) 02/09/25 14:57 Urine Blood 2+ (Negative) A 02/09/25 14:57 Urine Nitrate Negative (Negative) 02/09/25 14:57 Urine Bilirubin Negative (Negative) 02/09/25 14:57 Urine Urobilinogen 1.0 mg/dL (Negative) 02/09/25 14:57 Ur Leukocyte Esterase 2+ (Negative) A 02/09/25 14:57 Urine RBC 5-10 /hpf (0-2) H 02/09/25 14:57 Urine WBC 5-10 /hpf (0-5) H 02/09/25 14:57 Ur Squamous Epith Cells 0-4 /hpf (0-5) H 02/09/25 14:57 Amorphous Sediment 1+ /hpf 02/09/25 14:57 Urine Bacteria 1+ /hpf (NONE) H 02/09/25 14:57 C. difficile (PCR) Negative (Negative) 02/09/25 13:00 Discharge Plan Discharge Patient Disposition: Admitted As Inpatient Admit Provider: Uvaldo Stark Clinical Impression: Gastroenteritis, Atrial fibrillation, JESSICA (acute kidney injury) Condition: Stable Coding Level of Care Code ED [employer] Applier for Jeronimo Enamorado
[2025-02-09 13:10] LABS: Hematocrit 29.4 % (37-53); Hemoglobin 9.20 g/dL (11.27-16.99); Mean Corpuscular HGB Conc 31.3 g/dL (30-55); Mean Corpuscular Hemoglobin 26.3 pg (27-33); Mean Corpuscular Volume 84.0 fl (82-101); Nucleated Red Blood Cells % 0 %; Platelet Count 127 10^3/cmm (157-399); Red Blood Count 3.50 10^6/uL (3.85-5.65); White Blood Count 10.72 10^3/uL (3.29-11.43)
[2025-02-09] MEDS: ondansetron 2 mg/ML SDV 2 mL 4 MG IVP (13:42)
[2025-02-09 13:55] LABS: C.Diff PCR (Lab) NEGATIVE (Negative)
[2025-02-09 14:15] LABS: Ammonia 78 umol/L (16-60); Lactic Sepsis W/Reflex 1.7 mmol/L (0.5-2.2); Troponin(5th) Baseline 53 ng/L (0-15)
--- NOTE | 2025-02-09 14:21 | ECG_ITS ---
[email or web address] Test Date: 2025-02-09 Pat Name: Marciano Alonso Department: Room: Gender: Male Manager Engagement: : 1965 Requested By: Keiry Green Order Number: [id number] Reading MD: JARRETT DESAI Measurements Intervals [place] Rate: 115 P: 0 RI: 0 QRS: -85 QRSD: 114 T: 180 QT: 376 QTc: 521 Interpretive Statements ATRIAL FIBRILLATION WITH RAPID VENTRICULAR RESPONSE LOW QRS VOLTAGE [QRS DEFLECTION < 0.5/1.0 mV IN LIMB/CHEST LEADS] POSSIBLE RIGHT VENTRICULAR CONDUCTION DELAY [RSR (QR) IN V1/V2] INFERIOR MYOCARDIAL INFARCTION , PROBABLY OLD [40+ ms Q WAVE AND/OR ST/T ABNORMALITY IN II/aVF] ANTEROLATERAL MYOCARDIAL INFARCTION , OF INDETERMINATE AGE [40+ ms Q WAVE IN I/aVL/V3-V6] Compared to ECG 02/09/2025 12:24:55 there is atrial fib Electronically Signed On 02-11-2025 23:28:49 CDT by JARRETT DESAI [email or web address]
[2025-02-09 14:27] LABS: NT Pro B Type Natriuretic Pept 1575 pg/mL (0-125); Procalcitonin 0.15 ng/mL (0-0.5); Thyroid Stimulating Hormone 1.51 uIU/mL (0.27-4.20)
[2025-02-09 14:38] LABS: Alanine Aminotransferase 39 U/L (0-41); Albumin Level 3.5 g/dL (3.5-5.2); Alkaline Phosphatase 91 U/L (40-130); Anion Gap 17.8 (5-19); Aspartate Amino Transferase 66 U/L (0-40); Blood Urea Nitrogen 28 mg/dL (8-23); Calcium 8.2 mg/dL (8.5-10.5); Carbon Dioxide 20 mmol/L (22-29); Chloride 101 mmol/L (98-107); Creatinine Clr Calc Pharmacy 125.3423; Globulin 2.3 g/dL (1.3-4.6); Glucose 68 mg/dL (65-115); Magnesium 1.7 mg/dL (1.7-2.3); Osmolality Calculated 284 mOsm/kg (285-295); Potassium 3.8 mmol/L (3.5-5.1); Sodium 135 mmol/L (136-145); Total Protein 5.8 g/dL (6.6-8.7)
--- NOTE | 2025-02-09 14:46 | CTR_ITS ---
PROCEDURE INFORMATION: Exam: CT Chest Without Contrast; Diagnostic Exam date and time: 02/09/2025 05:03 PM Age: 59 years old Clinical indication: Other: Diarrhea; Cough; Additional info: Severe diarrhea, concerning for perforation TECHNIQUE: Imaging protocol: Diagnostic computed tomography of the chest without contrast. Radiation optimization: All CT scans at this facility use at least one of these dose optimization techniques: automated exposure control; mA and/or kV adjustment per patient size (includes targeted exams where dose is matched to clinical indication); or iterative reconstruction. COMPARISON: CT chest w con* [id number] 01/13/2025 10:04 PM RADIATION DOSE METRICS: Total DLP (mGy-cm): 1627.78 FINDINGS: Lungs: See Pleural spaces finding. Pleural spaces: Moderate left pleural effusion with adjacent compressive atelectasis. Heart: Minimal pericardial fluid. Coronary arteries: Coronary artery calcifications. Lymph nodes: Unremarkable. No enlarged lymph nodes. Vasculature: Atherosclerotic vascular disease. Diaphragm: Possible small hiatal hernia. Bones/joints: Degenerative changes of the spine with osteophytic lipping. Upper to midthoracic spine disc space narrowing with endplate sclerosis. Healing right 6th and 7th rib fractures. Soft tissues: Artifact through the chest from patient's arm and positioning in the gantry. PROCEDURE INFORMATION: Exam: CT Abdomen And Pelvis Without Contrast Exam date and time: 02/09/2025 05:03 PM Age: 59 years old Clinical indication: Other: Diarrhea; Cough; Additional info: Severe diarrhea, concerning for perforation TECHNIQUE: Imaging protocol: Computed tomography of the abdomen and pelvis without contrast. Radiation optimization: All CT scans at this facility use at least one of these dose optimization techniques: automated exposure control; mA and/or kV adjustment per patient size (includes targeted exams where dose is matched to clinical indication); or iterative reconstruction. COMPARISON: MR abdomen wo/w con* [id number] 12/25/2024 01:20 PM RADIATION DOSE METRICS: Total DLP (mGy-cm): 1627.78 FINDINGS: Liver: Limited evaluation of the liver due to artifact. Gallbladder and biliary ducts: No definitive calcific gallstone. Pancreas: Evaluation of the pancreas is limited by artifact. Spleen: Splenomegaly. Adrenal glands: Question small 1.7 cm low-attenuation lesion in the right adrenal gland, not appreciated on the MRI from 12/25/2024. Evaluation of the area is somewhat limited due to the artifact. Kidneys and ureters: Bilateral renal atrophy. High-density exophytic left renal cyst. Stomach and bowel: Limited evaluation of the bowel due to nondistention and artifact. Bowel wall thickening can not be excluded. Appendix: No evidence of appendicitis. Intraperitoneal space: Free fluid in the lower abdomen. No evidence for free air.. Vasculature: Atherosclerotic vascular disease. Lymph nodes: Unremarkable. No enlarged lymph nodes. Urinary bladder: Evaluation of the bladder and pelvic structures is limited by artifact and patient positioning within the gantry. Degenerative changes of the spine with anterior osteophytic lipping. Reproductive: Unremarkable as visualized. Bones/joints: Degenerative changes of both hips, right more than left. Soft tissues: Anasarca/edema involving the anterior abdominal wall. CT/[place] [id number] IMPRESSION: 1. Moderate left pleural effusion with adjacent compressive atelectasis. 2. Atherosclerotic vascular disease. Coronary artery calcifications. IMPRESSION: 1. Limited exam due to patient positioning within the gantry with significant artifact noted. 2. Splenomegaly. 3. High-density left renal exophytic cyst. A cyst in a similar location is seen on the prior MRI from 12/25/2024. 4. Anasarca/edema involving the anterior abdominal wall. 5. No obstructive appearing air-fluid levels. COMMENTS: 1. Consistent with the [place] [employer]'s Incidental Findings Committee white paper (J Am Henrique Radiol 2018): Any incidental renal lesion less than 1 cm or classified as too small to characterize, or any incidental cystic renal lesion characterized as simple-appearing, is likely benign. No follow-up imaging is recommended for these lesions per consensus recommendations based on imaging criteria. 2. Consistent with the [place] [employer]'s Incidental Findings Committee white paper (J Am Henrique Radiol 2017): For any incidental adrenal lesion greater than or equal to 1 cm but less than or equal to 4 cm classified in this report as benign, likely benign, or containing fat (including classification as an adenoma or myelolipoma), no follow-up imaging is recommended per consensus recommendations based on imaging criteria. Further lab evaluation could be pursued if warranted based on clinical findings.
[2025-02-09 15:11] LABS: Glucose Urine UA Negative (Normal); Nitrate Urine Negative (Negative); Specific Gravity, Urine 1.016 (1.005-1.030)
[2025-02-09 15:48] LABS: Add Urine Microscopic? YES; UA Manual Slide Review YES
--- NOTE | 2025-02-09 16:38 | PM.HP ---
Providers/Chief Complaint Admitting Physician: Uvaldo Stark MD Primary Care Provider: Chris Parker DO Chief Complaint: sob - n/v/d - chest pain History of Present Illness Marciano Alonso is a 59 year old male with history of morbid obesity, left leg amputation, sleep apnea, poorly controlled diabetes comes in with nausea vomiting x 1 today and multiple episodes of diarrhea. He states that [facility]. There is report of some cough and he has had a cough but no reported diarrhea. Patient has been on recent antibiotics for pneumonia and several courses but C. difficile was negative. Urine and blood cultures are pending. Patient states he still has his gallbladder and recently had diagnosis of enlarged spleen and pancytopenia being evaluated by Dr. Lambert. Patient had a liver biopsy in [place] because that could not be done here at [place]. Patient is companied by his sister Tiara Hendrickson. Review of Systems Narrative: Positive for chills today temperature was not measured he said weight gain about 60 pounds in recent year. He states he eats the same as always but on further questioning admits to milk with every meal juice daily and soda with sugar 3 times a week. Cardiovascular positive palpitations but he feels fine states his heart rate typically runs 120 Respiratory positive for recent pneumonia cough wheezing 2 weeks ago and then 1 week ago he is on steroids and antibiotic. Positive for sleep apnea for which he uses CPAP machine is at [facility] sister will bring it in GI as a above with loose watery brown stool progressively more watery no dysuria hematuria Medications/Allergies Home Medications ?Medication ?Instructions ?Recorded ?Confirmed ?Last Taken ?Type allopurinol 300 mg tablet 300 mg PO DAILY 05/08/19 02/09/25 02/09/25 History carboxymethylcellulose sodium 0.5 1 drop ophthalmic (eye) DAILY PRN 05/08/19 02/09/25 05/25/ History % eye drops (Refresh Tears) Dry Eyes cholecalciferol (vitamin D3) 25 1,000 unit PO DAILY 05/08/19 02/09/25 02/09/25 History mcg (1,000 unit) capsule montelukast 10 mg tablet 10 mg PO BEDTIME 05/08/19 02/09/25 02/08/25 History fluticasone propionate 50 1 spray intranasal BID #15.8 mL 07/18/19 02/09/25 02/09/25 Rx mcg/actuation nasal spray,suspension hydrocodone 5 mg-acetaminophen 325 1 tab PO TID PRN pain 30 days #90 02/05/21 02/09/25 02/09/25 Rx mg tablet tabs metoclopramide HCl 10 mg tablet 10 mg PO Q6H PRN Indigestion 04/16/22 02/09/25 Unknown History (Reglan) spironolactone 25 mg tablet 12.5 mg PO DAILY 09/18/22 02/09/25 02/09/25 History multivit-minerals no.60-ferrous 1 tab PO DAILY 10/16/22 02/09/25 02/09/25 History fumarate-folic acid 27 mg-1 mg tablet (Niva-Plus) apixaban 5 mg tablet (Eliquis) 5 mg PO BID #180 tabs 04/06/23 02/09/25 02/09/25 Rx amiodarone 200 mg tablet 200 mg PO DAILY #90 tabs 09/09/23 02/09/25 02/09/25 Rx metoprolol tartrate 100 mg tablet 100 mg PO BID 12/28/23 02/09/25 02/09/25 History pregabalin 50 mg capsule 50 mg PO TID #90 caps 03/22/24 02/09/25 02/09/25 Rx bisacodyl 10 mg rectal suppository 10 mg SD DAILY PRN Constipation 04/24/24 02/09/25 01/07/25 History (Dulcolax (bisacodyl)) esomeprazole magnesium 40 mg 40 mg PO BID 04/24/24 02/09/25 02/09/25 History capsule,delayed release lidocaine 5 % topical patch 1 patch topical BID 04/24/24 02/09/25 02/09/25 History magnesium hydroxide 400 mg/5 mL 5 ml PO DAILY PRN Constipation 04/24/24 02/09/25 02/05/25 History oral suspension (Milk of Magnesia) sodium phosphates 19 gram-7 118 ml SD DAILY PRN Constipation 04/24/24 02/09/25 Unknown History gram/118 mL enema (Fleet Enema) tamsulosin 0.4 mg capsule (Flomax) 0.4 mg PO BID 04/24/24 02/09/25 02/09/25 History acetaminophen 500 mg capsule 500 mg PO Q6H PRN pain or fever 09/08/24 02/09/25 02/09/25 History budesonide 160 mcg-glycopyr 9 2 inh inhalation BID 09/08/24 02/09/25 02/09/25 History mcg-formot 4.8 mcg/actuation HFA inhaler (Breztri Aerosphere) polyethylene glycol 3350 17 gram 17 g PO DAILY 09/08/24 02/09/25 02/09/25 History oral powder packet sennosides 8.6 mg tablet (senna) 8.6 mg PO BID 09/08/24 02/09/25 02/09/25 History albuterol sulfate 2.5 mg/3 mL 2.5 mg inhalation Q6H PRN Dyspnea 02/05/25 02/09/25 02/09/25 History (0.083 %) solution for nebulization atorvastatin 20 mg tablet 20 mg PO DAILY 02/05/25 02/09/25 02/09/25 History brimonidine 0.2 % eye drops 1 drp ophthalmic (eye) BID 02/05/25 02/09/25 02/09/25 History brinzolamide 1 % eye 1 drp ophthalmic (eye) BID 02/05/25 02/09/25 02/09/25 History drops,suspension diclofenac sodium 1 % topical gel 2 g topical TID PRN Pain 02/05/25 02/09/25 02/08/25 History furosemide 40 mg tablet 40 mg PO BID 02/05/25 02/09/25 02/09/25 History insulin aspart U-100 100 unit/mL 60 unit SUBCUT TID 02/05/25 02/09/25 02/09/25 History (3 mL) subcutaneous pen insulin degludec 100 unit/mL (3 150 unit SUBCUT BEDTIME 02/05/25 02/09/25 02/08/25 History mL) subcutaneous pen (Tresiba FlexTouch U-100 insulin) latanoprost 0.005 % eye drops 1 drp ophthalmic (eye) BEDTIME 02/05/25 02/09/25 02/08/25 History oxybutynin chloride 5 mg tablet 5 mg PO DAILY 02/05/25 02/09/25 02/09/25 History white petrolatum-mineral oil 94 1 applic ophthalmic (eye) BEDTIME 02/05/25 02/09/25 02/08/25 History %-3 % eye ointment (Systane Nighttime) moxifloxacin 400 mg tablet 400 mg PO DAILY 7 days #7 tabs 02/06/25 02/09/25 02/09/25 Rx prednisone 20 mg tablet 20 mg PO DAILY #5 tabs 02/06/25 02/09/25 02/07/25 Rx bisacodyl 5 mg tablet 10 mg PO DAILY PRN Constipation 02/09/25 02/09/25 Unknown History triamcinolone acetonide 0.1 % 1 applic topical BID PRN skin 02/09/25 02/09/25 Unknown History topical cream irritation on ears Allergies Allergy/AdvReac Type Severity Reaction Status Date / Time Penicillins Allergy ALGY-Hives Verified 02/05/25 13:27 Sulfa (Sulfonamide Allergy ALGY-Hives Verified 02/05/25 13:27 Antibiotics) PFSH Acute PFSH: Medical History (Updated 02/09/25 @ 16:47 by Uvaldo Stark MD) Sleep apnea, unspecified Constipation Dry eye syndrome of unspecified lacrimal gland Unspecified glaucoma Gastro-esophageal reflux disease without esophagitis Benign prostatic hyperplasia without lower urinary tract symptoms Gout, unspecified Hyperlipidemia, unspecified 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 heart failure 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 Muscle weakness (generalized) COPD (chronic obstructive pulmonary disease) detention (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 of anticoagulants Chronic atrial fibrillation, unspecified Open wound of left lower quadrant of abdominal wall without penetration into peritoneal cavity Intertriginous dermatitis associated with moisture Morbid obesity Atrial flutter Encounter for screening colonoscopy Repeat screening colonoscopy in 10 years unless otherwise specified Chronic low back pain Chronic right shoulder pain Diabetes mellitus Shoulder pain BILATERAL Encounter for long-term use of opiate analgesic Right knee pain Amputation above knee Left Diabetes type 2, controlled Essential hypertension Dysuria-frequency syndrome Seizure BPH (benign prostatic hyperplasia) Primary osteoarthritis of both knees r knee Sleep apnea Surgical History History of left above knee amputation History of shoulder surgery 2001 x 2 L shoulder Family History Other Heart disease Hypertension Social History (Updated 02/09/25 @ 16:44 by Uvaldo Stark MD) Smoking and tobacco/nicotine status: current some day tobacco/nicotine user smokeless tobacco Smokeless tobacco user: chewing tobacco Smokeless tobacco details: 2 cans a day Quit status (tobacco/nicotine): not considering quitting Second hand smoke exposure: No Alcohol intake: never Substance/Drug Use: never Additional social history: Patient chews a can of tobacco daily. He wants full CODE STATUS as discussed with myself with his sister Tiara Garay present at bedside on 02/09/2025 Marital status: Single Marital status details: Never no kids Previous occupational history: Worked in [employer] for 3 years, [employer] Vitals/I&O/Wt Last Vital Signs Temp 97.8 F 02/09/25 12:17 Pulse 114 H 02/09/25 14:31 Resp 20 H 02/09/25 12:17 BP 111/51 02/09/25 14:31 Pulse Ox 92 02/09/25 14:31 O2 Del Method Room Air 02/09/25 12:17 Weight last 48 hrs Weight 169.19 kg Physical Exam Narrative: General well-developed morbidly obese chronically ill-appearing male tachypneic and tachycardic. Cardiovascular tachycardic and irregular Respiratory clear to auscultation on anterior exam and posterior exam this limited by immobility Abdomen morbidly obese distended nontender he has pitting edema in the pannus there is not overt cellulitis Right calf atrophied no edema Left leg not able to be found. His pannus is hanging over the left side of the bed. Reported amputation Data 02/09/25 13:01 02/09/25 13:45 Micro: Microbiology 02/09/25 13:45 Blood Culture - Preliminary Blood SPECIMEN COLLECTED 02/09/25 13:45 Blood Culture - Preliminary Blood SPECIMEN COLLECTED A&P Assessment and plan 1. Diarrhea: Will give IV fluids continue with rectal tube start diabetic diet 2. Atrial fibrillation: Start diltiazem drip 3. Pancytopenia: Chronic and being worked up by Dr. Lambert 4. JESSICA (acute kidney injury): LR bolus plus IV fluids 5. Chewing tobacco nicotine dependence: Start nicotine patch 6. Morbid obesity: 2000-calorie ADA diet. I discussed weight loss diet and importance of weight loss for health and ability to be cared for inpatient voiced understanding and agreement to start a weight loss diet and stop caloric drinks 7. Sleep apnea: Resume home CPAP PDMP PDMP Reviewed: Not Reviewed Attestations Medical Necessity Statement*: Patient to the hospital on diltiazem drip and for diarrhea and anticipate greater than 2 midnights. Will change to inpatient Coding Level of Care Code Acute Code for Chg Fwd Diagnoses Diarrhea R19.7 Atrial fibrillation I48.91 Pancytopenia D61.818 JESSICA (acute kidney injury) N17.9 Chewing tobacco nicotine dependence F17.220 Morbid obesity E66.01 Sleep apnea G47.30
[2025-02-09 16:50] LABS: Troponin 5 2HR 55.99 ng/L (0-15); Troponin 5 2HR Delta 2.99 ABS# (0-10)
[2025-02-09 16:57] LABS: Lipase 64 U/L (13-60)
[2025-02-09] MEDS: HYDROcodone-acetaminophen 5-325 mg Tablet 1 TAB PO (18:06)
[2025-02-09] MEDS: sodium chlor 0.9% + KCl 20 mEq 20 MEQ/1,000 ML BAG 100 MEQ IV (18:07)
[2025-02-09] MEDS: magnesium sulfate premix 1 GM/100 ML PIGGYBACK IV (18:07)
--- NOTE | 2025-02-09 18:26 | PC.NURSE ---
Clarified orders with Dr Stark regarding diltiazem and metoprolol. HR 116, BP 92/50. Received orders to give 1L bolus of LR then start diltiazem drip when bolus completed. RBVO
--- NOTE | 2025-02-09 18:32 | ECG_ITS ---
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1965 Requested By: Keiry Green Order Number: [id number] Clarence MD: JARRETT DESAI Measurements Intervals [place] Rate: 111 P: 0 AL: 0 QRS: -68 QRSD: 132 T: 0 QT: 396 QTc: 538 Interpretive Statements ATRIAL FLUTTER/TACHYCARDIA WITH RAPID VENTRICULAR RESPONSE LEFT AXIS DEVIATION [QRS AXIS < -30] INTRAVENTRICULAR CONDUCTION DELAY [130+ ms QRS DURATION] ANTEROSEPTAL MYOCARDIAL INFARCTION , OF INDETERMINATE AGE [40+ ms Q WAVE IN V1-V4] Compared to ECG 02/09/2025 14:34:01 Left-axis deviation now present Intraventricular conduction delay now present Myocardial infarct finding still present Electronically Signed On 02-11-2025 23:28:57 CDT by JARRETT DESAI [email or web address]
[2025-02-09 20:23] LABS: Troponin 5 6HR 57.14 ng/L (0-15); Troponin 5 6HR Delta 4.14 ng/L (0-12)
--- NOTE | 2025-02-09 20:37 | PC.NURSE ---
Rectal tube was leaking large amounts of stool. Day shift team attempted to readjust. This nurse ended up replacing rectal tube and is having no leakage at this moment.
[2025-02-09] MEDS: insulin glargine 100 units/1 mL 100 UNIT SUBCUT (22:05)
[2025-02-10] VITALS (9 sets, daily range): BP systolic 107–132; BP diastolic 65–75; PULSE 82–118; RESP 12–26; TEMP 36.4–37.2; O2SAT 91–94; BMI 75.8
--- NOTE | 2025-02-10 00:01 | PC.NURSE ---
This nurse was told by day shift team that Dr. Stark had wanted patient started on cardizem after electrolytes were replaced. cardizem order was for a fixed rate and patients BP was 100-110. Requesting to have the titrateable gtt protocol. Recieved orders forom Dr. Yeager to order cardizem with titration. At this time patient HR is 90-[address] Yeager if we can hold off on starting the gt, awaiting reply.
[2025-02-10 04:39] LABS: Hematocrit 24.6 % (37-53); Hemoglobin 7.90 g/dL (11.27-16.99); Mean Corpuscular HGB Conc 32.1 g/dL (30-55); Mean Corpuscular Hemoglobin 26.7 pg (27-33); Mean Corpuscular Volume 83.1 fl (82-101); Nucleated Red Blood Cells % 0 %; Platelet Count 98 10^3/cmm (157-399); Red Blood Count 2.96 10^6/uL (3.85-5.65); White Blood Count 5.79 10^3/uL (3.29-11.43)
[2025-02-10 05:01] LABS: Alanine Aminotransferase 33 U/L (0-41); Albumin Level 3.1 g/dL (3.5-5.2); Alkaline Phosphatase 87 U/L (40-130); Anion Gap 15.7 (5-19); Aspartate Amino Transferase 59 U/L (0-40); Blood Urea Nitrogen 28 mg/dL (8-23); Calcium 8.1 mg/dL (8.5-10.5); Carbon Dioxide 20 mmol/L (22-29); Chloride 105 mmol/L (98-107); Creatinine Clr Calc Pharmacy 148.4907; Globulin 2.7 g/dL (1.3-4.6); Glucose 62 mg/dL (65-115); Magnesium 2.0 mg/dL (1.7-2.3); Osmolality Calculated 287 mOsm/kg (285-295); Potassium 3.7 mmol/L (3.5-5.1); Sodium 137 mmol/L (136-145); Total Protein 5.8 g/dL (6.6-8.7)
[2025-02-10] MEDS: HYDROcodone-acetaminophen 5-325 mg Tablet 1 TAB PO ×2 (06:19→21:06)
[2025-02-10] MEDS: fluticasone nasal spray 16gm Btl 1 SPRAY INTRANASAL ×2 (06:20→17:32)
[2025-02-10] MEDS: brimonidine 0.2% Op Soln 5 mL Btl 1 DROP EYE-BOTH ×2 (06:20→17:33)
--- NOTE | 2025-02-10 06:32 | PC.NURSE ---
Around 2144 clarified insulin lantus order with Dr. Yeager. Patient has BG of 131 and is going to be receiving 100 units of lantus, asked if the dose needs to be lowered. Received orders to give 100 units and recheck.
[2025-02-10] MEDS: sodium chlor 0.9% + KCl 20 mEq 20 MEQ/1,000 ML BAG 100 MEQ IV (08:49)
--- NOTE | 2025-02-10 16:04 | P.PN_ITS ---
Subjective 2 Subjective: 59-year-old male morbidly obes e states he lost his left leg after he tried to jump in a truck that was rolling and he crushed and pinned his leg for 3 hours before he was found. 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 Patient was admitted with shortness of breath and diarrhea yesterday required a rectal tube he is on BiPAP with a ResMed air curve via auto looks like settings are 16/10. He states he wore it last night but currently he has had falling asleep watching TV and is not wearing it Vitals/I&O/Wt Last Vital Signs Temp 98.0 F 02/10/25 07:47 Pulse 102 H 02/10/25 15:38 Resp 22 H 02/10/25 15:38 BP 132/75 02/10/25 12:00 Pulse Ox 94 02/10/25 15:38 O2 Del Method Room Air 02/10/25 15:38 FiO2 21 02/09/25 20:40 02/10/25 02/10/25 02/10/25 06:59 14:59 22:59 Intake Total 2000 / 2340 240 / 240 Output Total 1100 / 2750 800 / 800 Balance 900 / -410 -560 / -560 Weight last 48 hrs Weight 253.649 kg Weight 188.1 kg Weight 188.1 kg Weight 169.19 kg Physical Exam 2 Narrative: General well-developed morbidly obese chronically ill-appearing male tachypneic and tachycardic. Oral Mallampati 4 Cardiovascular tachycardic and irregular Respiratory clear to auscultation on anterior exam and posterior exam this limited by immobility Abdomen morbidly obese distended nontender he has pitting edema in the pannus there is not overt cellulitis Right calf atrophied no edema Left leg not able to be found. His pannus is hanging over the left side of the bed. Reported amputation left [id number] is just discussed Urinary Catheter Management: Constantino: Cath Placed During This Visit: no Reason for Continuing Indwelling Catheter: Chronic Indwelling Urinary Catheter on Admission Data 02/10/25 03:52 02/10/25 03:52 Micro: Microbiology 02/09/25 13:45 Blood Culture - Preliminary Blood NEGATIVE TO DATE 02/09/25 13:45 Blood Culture - Preliminary Blood NEGATIVE TO DATE A&P Assessment and plan 1. Diarrhea: Stop IV fluids. Rectal tube overnight and anticipate discharge continuance in morning. Has had intermittent diarrhea only hygiene is difficult because the patient weighs 557 pounds 2. Chronic atrial fibrillation: Will start oral diltiazem. Wean off diltiazem drip and anticipate discharge back to the shelter facility tomorrow 3. Pancytopenia: Chronic and being worked up by Dr. Lambert 4. JESSICA (acute kidney injury): Stop IV fluids continue with BiPAP 5. Chewing tobacco nicotine dependence: Start nicotine patch 6. Morbid obesity: 2000-calorie ADA diet. I discussed weight loss diet and importance of weight loss for health and ability to be cared for inpatient voiced understanding and agreement to start a weight loss diet and stop caloric drinks 7. Sleep apnea: Resume home CPAP PDMP PDMP Reviewed: Not Reviewed Attestations 2 Medical Necessity Statement*: Patient remains hospitalized for rate control of his A-fib and resolution of diarrhea Coding Level of Care Code Acute Code for g Fwd Diagnoses Diarrhea R19.7 Chronic atrial fibrillation I48.20 Atrial fibrillation type: unspecified chronic Pancytopenia D61.818 JESSICA (acute kidney injury) N17.9 Chewing tobacco nicotine dependence F17.220 Morbid obesity E66.01 Sleep apnea G47.30 Time Spent (min) 35
--- NOTE | 2025-02-10 23:03 | PC.NURSE ---
Clarified with Dr. Yeager regarding 100 units of lantus. Last night patient was given a 100 units with a BG of 131 and this AM was in the 50's. Patient BG tonight was 181 and had to recieve 8 units of insulin lispro. This nurse did recheck BG about 30 minutes after administration of the 8 units and bg was 176. Per Dr. Yeager reduce dose of launtus to 80 units.
[2025-02-10] MEDS: insulin glargine 100 units/1 mL 80 UNIT SUBCUT (23:11)
[2025-02-11] VITALS (9 sets, daily range): BP systolic 111–115; BP diastolic 69–70; PULSE 93–113; RESP 14–32; TEMP 36.4–36.8; O2SAT 91–98; BMI 74.9
[2025-02-11] MEDS: brimonidine 0.2% Op Soln 5 mL Btl 1 DROP EYE-BOTH (06:09)
[2025-02-11] MEDS: fluticasone nasal spray 16gm Btl 1 SPRAY INTRANASAL (06:09)
[2025-02-11 11:03] LABS: Hematocrit 26.9 % (37-53); Hemoglobin 8.40 g/dL (11.27-16.99); Mean Corpuscular HGB Conc 31.2 g/dL (30-55); Mean Corpuscular Hemoglobin 26.8 pg (27-33); Mean Corpuscular Volume 85.9 fl (82-101); Nucleated Red Blood Cells % 0 %; Platelet Count 120 10^3/cmm (157-399); Red Blood Count 3.13 10^6/uL (3.85-5.65); White Blood Count 7.64 10^3/uL (3.29-11.43)
--- NOTE | 2025-02-11 12:44 | PM.DCS ---
Discharge Providers Date of Admission: 02/09/25 18:25 Date of Discharge: February 11, 2025 Attending Provider at Admission: Uvaldo Stark MD Attending Provider at Discharge: Uvaldo Stark MD Consults: None Primary Care Provider: Chris Parker DO Diagnoses at Discharge Discharge Diagnosis 1. Diarrhea: Details from hospital stay: Patient had diarrhea and required a rectal tube due to severe obesity and management of hygiene. Diarrhea resolved and rectal tube was removed C. difficile was negative 2. Chronic atrial fibrillation: Details from hospital stay: Patient with heart rates over 110 and also had some diarrhea so I continued metoprolol 100 mg twice a day, increased amiodarone to 400 mg daily and started diltiazem 60 milligrams with good response so switched to 180 mg CD daily on discharge. Potassium 3.8 and magnesium 2.0. Diuretic was discontinued due to diarrhea, dehydration and no leg edema. Patient does have significant abdominal wall pannus edema which is dependent. Continue apixaban Notably the patient has anemia but not iron deficiency and known pancytopenia. Hematocrit relatively stable at 24-29 follow-up with Dr. Lambert and potentially with GI or general surgery for endoscopy 3. Pancytopenia: Details from hospital stay: Follow-up with Dr. Lambert 4. JESSICA (acute kidney injury): Details from hospital stay: Resolved 5. Chewing tobacco nicotine dependence: Details from hospital stay: Patient did not to in the hospital 6. Morbid obesity: Details from hospital stay: Patient is 557 pounds and has left [id number] amputation. He reports that Constantino was recently placed for his convenience and hygiene. I counseled him that his health is very poor and sleep apnea of very severe. He is at risk for and continued poor quality of life. We discussed weight loss diabetic diet with no concentrated sweets, caloric drinks desserts and limited to 2000 judith a day. He is willing to proceed with that. As result his blood sugars in the hospital were good despite being only on 80 units of long-acting instead of 150 and receiving only 8 to 10 units of short acting instead of 60 units with his meals 7. Sleep apnea: Details from hospital stay: Patient has BiPAP machine presumably for obesity hypoventilation and obstructive sleep apnea. Did not tolerate his machine well but I noted that the machine was past its intended lifespan with greater than 25,000 hours. The auto start and stop was turned off so patient had the machine going essentially 24 hours a day in the room off his face as he could not reach the machine to turn it off. Patient's mask was deteriorated and filthy. I did try to clean that for him. Patient's ramp was set for 30 minutes at 4 cm water and he was feeling suffocated with it before it would get to ramp. We used our machine at 16 and he did well. Because his machine was old and he reported inability to get enough air I turned his machine up to . I turned the ramp off and turned the auto start and stop on. Patient tolerated that well. In the meantime I have tried to order him another machine and have ordered him another sleep titration as he has gained at least 100 pounds since his machine was prescribed to him. 8. Diabetes mellitus: Details from hospital stay: Patient was counseled and at least at this time agreeable to changing his diet. He admitted to drinking sodas 3-4 times a week juice daily and milk daily. I counseled him to at least stop the caloric drinks. He furthermore agreed to weight loss diet of 2000 judith a day. As long as he is not complaining he is not ambulatory to seek his own food until he improves his health and gets back in his motorized wheelchair. I have encouraged him to weigh daily and try to lose 3 to 5 pounds a week which would be up to 1% of his body weight weekly. As a result his insulin has been decreased to 80 units long-acting daily and 20 units with meals. We had him on 80 units long-acting and 8 to 10 units sliding scale here some measurements did not require any insulin here and his blood sugars ran 57-181 9. Chronic indwelling Constantino catheter: Details from hospital stay: Patient tells me his Constantino was placed for his comfort and hygiene to make it easier on him . I think his worsening debilitation and obesity needs to be addressed with weight loss and physical therapy. We changed his Constantino here today 02/11/2025 UA was with minimal pyuria but urine grew gamma here hemolytic strep. We did not treat this with antibiotics. Again Constantino has been changed. Recommend increase activity decrease caloric intake and remove Constantino. Reason for Visit Reason for Visit: sob - n/v/d - chest pain Brief History: Marciano Alonso is a 59 year old male with history of morbid obesity, left leg amputation, sleep apnea, poorly controlled diabetes comes in with nausea vomiting x 1 today and multiple episodes of diarrhea. He states that [facility]. There is report of some cough and he has had a cough but no reported diarrhea. Patient has been on recent antibiotics for pneumonia and several courses but C. difficile was negative. Urine and blood cultures are pending. Patient states he still has his gallbladder and recently had diagnosis of enlarged spleen and pancytopenia being evaluated by Dr. Lambert. Patient had a liver biopsy in [place] because that could not be done here at [place]. Patient is companied by his sister Tiara Hendrickson. Physical Exam Narrative: General well-developed morbidly obese chronically ill-appearing male tachypneic and tachycardic. Oral Mallampati 4 Cardiovascular tachycardic and irregular Respiratory clear to auscultation on anterior exam and posterior exam this limited by immobility Abdomen morbidly obese distended nontender he has pitting edema in the pannus there is not overt cellulitis Right calf atrophied no edema Left leg not able to be found. His pannus is hanging over the left side of the bed. Reported amputation left [id number] as discussed but I was unable to move the patient's pannus to examine his left stump Urinary Catheter Management: Constantino: Cath Placed During This Visit: Yes Reason for Continuing Indwelling Catheter: Chronic Indwelling Urinary Catheter on Admission Discharge Data Studies Completed and Pending Completed Studies During Hospitalization Category [place] [id number] Stat Cat Scan 02/09/25 14:46 Completed Pending at discharge Category Date Time Status Blood Culture Stat Lab 02/09/25 13:45 Results OVA and Parasites, Conc and PE Routine Lab 02/09/25 13:00 Received Stool Culture - Enteric [Salmonella / Shigella / Campy] Lab 02/09/25 13:00 Received Routine Urine Culture Stat Lab 02/09/25 14:57 Results Radiology Impressions Chest/Abdomen/Pelvis CT 02/09/25 14:46 IMPRESSION: 1. Moderate left pleural effusion with adjacent compressive atelectasis. 2. Atherosclerotic vascular disease. Coronary artery calcifications. IMPRESSION: 1. Limited exam due to patient positioning within the gantry with significant artifact noted. 2. Splenomegaly. 3. High-density left renal exophytic cyst. A cyst in a similar location is seen on the prior MRI from 12/25/2024. 4. Anasarca/edema involving the anterior abdominal wall. 5. No obstructive appearing air-fluid levels. COMMENTS: 1. Consistent with the [employer]'s Incidental Findings Committee white paper (J Am Henrique Radiol 2018): Any incidental renal lesion less than 1 cm or classified as too small to characterize, or any incidental cystic renal lesion characterized as simple-appearing, is likely benign. No follow-up imaging is recommended for these lesions per consensus recommendations based on imaging criteria. 2. Consistent with the [employer]'s Incidental Findings Committee white paper (J Am Henrique Radiol 2017): For any incidental adrenal lesion greater than or equal to 1 cm but less than or equal to 4 cm classified in this report as benign, likely benign, or containing fat (including classification as an adenoma or myelolipoma), no follow-up imaging is recommended per consensus recommendations based on imaging criteria. Further lab evaluation could be pursued if warranted based on clinical findings. Laboratory Results WBC 7.64 10^3/uL (3.29-11.43) 02/11/25 10:32 RBC 3.13 10^6/uL (3.85-5.65) L 02/11/25 10:32 Hgb 8.40 g/dL (11.27-16.99) L 02/11/25 10:32 Hct 26.9 % (37-53) L 02/11/25 10:32 MCV 85.9 fl (82-101) 02/11/25 10:32 MCH 26.8 pg (27-33) L 02/11/25 10:32 MCHC 31.2 g/dL (30-55) 02/11/25 10:32 RDW 16.9 % (12.1-15.1) H 02/11/25 10:32 Plt Count 120 10^3/cmm (157-399) L 02/11/25 10:32 MPV 11.1 fL (7.4-10.4) H 02/11/25 10:32 Neut % (Auto) 83.6 % 02/11/25 10:32 Lymph % (Auto) 6.2 % 02/11/25 10:32 Evans % (Auto) 6.5 % 02/11/25 10:32 Eos % (Auto) 2.7 % 02/11/25 10:32 Baso % (Auto) 0.3 % 02/11/25 10:32 Neut # (Auto) 6.39 10^3/uL (1.8-7.7) 02/11/25 10:32 Lymph # (Auto) 0.5 10^3/uL (0.8-4.8) L 02/11/25 10:32 Evans # (Auto) 0.5 10^3/uL (0.2-0.9) 02/11/25 10:32 Eos # (Auto) 0.2 10^3/uL (0.0-0.8) 02/11/25 10:32 Baso # (Auto) 0.0 10^3/uL (0.0-0.1) 02/11/25 10:32 Nucleated RBC % (auto) 0 % 02/11/25 10:32 Nucleated RBCs # 0.0 /100WBC 02/11/25 10:32 Sodium 137 mmol/L (136-145) 02/10/25 03:52 Potassium 3.7 mmol/L (3.5-5.1) 02/10/25 03:52 Chloride 105 mmol/L (98-107) 02/10/25 03:52 Carbon Dioxide 20 mmol/L (22-29) L 02/10/25 03:52 Anion Gap 15.7 (5-19) 02/10/25 03:52 BUN 28 mg/dL (8-23) H 02/10/25 03:52 Creatinine 0.9 mg/dL (0.7-1.2) 02/10/25 03:52 GFR Calculation 85.8 mL/min (90-130) L 02/10/25 03:52 Glucose 62 mg/dL (65-115) L 02/10/25 03:52 POC Glucose 162 mg/dL (70-110) H 02/11/25 11:07 Calculated Osmolality 287 mOsm/kg (285-295) 02/10/25 03:52 Lactic Acid 1.7 mmol/L (0.5-2.2) 02/09/25 13:45 Calcium 8.1 mg/dL (8.5-10.5) L 02/10/25 03:52 Phosphorus 2.6 mg/dL (2.5-4.5) 02/10/25 03:52 Magnesium 2.0 mg/dL (1.7-2.3) 02/10/25 03:52 Total Bilirubin 1.2 mg/dL (0.15-1.2) 02/10/25 03:52 AST 59 U/L (0-40) H 02/10/25 03:52 ALT 33 U/L (0-41) 02/10/25 03:52 Alkaline Phosphatase 87 U/L (40-130) 02/10/25 03:52 Ammonia 78 umol/L (16-60) H 02/09/25 13:45 Troponin T Baseline 53 ng/L (0-15) H 02/09/25 13:45 Troponin T 120 Minute 55.99 ng/L (0-15) H 02/09/25 15:57 Delta Troponin T 2.99 ABS# (0-10) 02/09/25 15:57 Troponin T Hi Sens 6Hr 57.14 ng/L (0-15) H 02/09/25 19:42 Troponin T Hi Sens 6Hr Delta 4.14 ng/L (0-12) 02/09/25 19:42 C-Reactive Protein 10.6 mg/L (0.0-4.9) H 02/09/25 13:45 NT-Pro-B Natriuret Pep 1575 pg/mL (0-125) H 02/09/25 13:45 Total Protein 5.8 g/dL (6.6-8.7) L 02/10/25 03:52 Albumin 3.1 g/dL (3.5-5.2) L 02/10/25 03:52 Globulin 2.7 g/dL (1.3-4.6) 02/10/25 03:52 Lipase 64 U/L (13-60) H 02/09/25 13:45 Procalcitonin 0.15 ng/mL (0-0.5) 02/09/25 13:45 TSH 1.51 uIU/mL (0.27-4.20) 02/09/25 13:45 Urine Color Yellow (Yellow) 02/09/25 14:57 Urine Appearance Clear (CLEAR) 02/09/25 14:57 Urine pH 6.0 (5-7) 02/09/25 14:57 Ur Specific [place] 1.016 (1.005-1.030) 02/09/25 14:57 Urine Protein Trace (Negative) A 02/09/25 14:57 Urine Glucose (UA) Negative (Normal) 02/09/25 14:57 Urine Ketones Negative (Negative) 02/09/25 14:57 Urine Blood 2+ (Negative) A 02/09/25 14:57 Urine Nitrate Negative (Negative) 02/09/25 14:57 Urine Bilirubin Negative (Negative) 02/09/25 14:57 Urine Urobilinogen 1.0 mg/dL (Negative) 02/09/25 14:57 Ur Leukocyte Esterase 2+ (Negative) A 02/09/25 14:57 Urine RBC 5-10 /hpf (0-2) H 02/09/25 14:57 Urine WBC 5-10 /hpf (0-5) H 02/09/25 14:57 Ur Squamous Epith Cells 0-4 /hpf (0-5) H 02/09/25 14:57 Amorphous Sediment 1+ /hpf 02/09/25 14:57 Urine Bacteria 1+ /hpf (NONE) H 02/09/25 14:57 C. difficile (PCR) Negative (Negative) 02/09/25 13:00 Vitals Last Vital Signs Temp 97.6 F 02/11/25 08:00 Pulse 94 02/11/25 08:00 Resp 32 H 02/11/25 08:00 BP 113/69 02/11/25 08:00 Pulse Ox 91 02/11/25 08:00 O2 Del Method Room Air 02/11/25 07:54 FiO2 28 02/11/25 00:36 Discharge Plan Discharge Patient Disposition: Xfer SNF Condition: Stable Prescriptions: New amiodarone [Pacerone] 200 mg Tablet 400 mg PO DAILY Qty: 60 0RF diltiazem HCl [Cardizem CD] 180 mg capsule,extended release 24hr 180 mg PO DAILY Qty: 30 0RF Continued montelukast 10 mg tablet 10 mg PO BEDTIME allopurinol 300 mg tablet 300 mg PO DAILY Refresh Tears 0.5 % drops 1 drop ophthalmic (eye) DAILY PRN (Reason: Dry Eyes) cholecalciferol (vitamin D3) 1,000 unit capsule 1,000 unit PO DAILY tamsulosin [Flomax] 0.4 mg capsule 0.4 mg PO BID hydrocodone-acetaminophen 5-325 mg tablet 1 tab PO TID PRN (Reason: pain) 30 Days Qty: 90 0RF magnesium hydroxide [Milk of Magnesia] 400 mg/5 mL suspension 5 ml PO DAILY PRN (Reason: Constipation) bisacodyl [Dulcolax (bisacodyl)] 10 mg suppository 10 mg MA DAILY PRN (Reason: Constipation) Fleet Enema 19-7 gram/118 mL enema 118 ml MA DAILY PRN (Reason: Constipation) metoclopramide HCl [Reglan] 10 mg tablet 10 mg PO Q6H PRN (Reason: Indigestion) Niva-Plus 27 mg iron- 1 mg tablet 1 tab PO DAILY metoprolol tartrate 100 mg tablet 100 mg PO BID lidocaine 5 % adhesive patch,medicated 1 patch topical BID Rx Instructions: leave on most painful area for up to 12 hrs esomeprazole magnesium 40 mg capsule,delayed release(DR/EC) 40 mg PO BID polyethylene glycol 3350 17 gram powder in packet 17 g PO DAILY acetaminophen 500 mg capsule 500 mg PO Q6H PRN (Reason: pain or fever) Breztri Aerosphere 160-9-4.8 mcg/actuation HFA aerosol inhaler 2 inh inhalation BID fluticasone propionate 50 mcg/actuation spray,suspension 1 spray INTRANASAL BID Qty: 15.8 6RF spironolactone 25 mg tablet 12.5 mg PO DAILY Eliquis 5 mg tablet 5 mg PO BID Qty: 180 3RF pregabalin 50 mg capsule 50 mg PO TID Qty: 90 5RF albuterol sulfate 2.5 mg /3 mL (0.083 %) solution for nebulization 2.5 mg inhalation Q6H PRN (Reason: Dyspnea) brinzolamide 1 % drops,suspension 1 drp ophthalmic (eye) BID brimonidine 0.2 % drops 1 drp ophthalmic (eye) BID diclofenac sodium 1 % gel 2 g TOPICAL TID PRN (Reason: Pain) latanoprost 0.005 % drops 1 drp ophthalmic (eye) BEDTIME Systane Nighttime 94-3 % Ointment 1 applic OPHTHALMIC (EYE) BEDTIME atorvastatin 20 mg tablet 20 mg PO DAILY triamcinolone acetonide 0.1 % cream 1 applic TOPICAL BID PRN (Reason: skin irritation on ears) Changed insulin aspart U-100 100 unit/mL (3 mL) insulin pen 20 unit SUBCUT TID Qty: 15 0RF Rx Instructions: with meals insulin degludec [Tresiba FlexTouch U-100] 100 unit/mL (3 mL) insulin pen 80 unit SUBCUT BEDTIME Qty: 15 0RF Discontinued sennosides [senna] 8.6 mg tablet 8.6 mg PO BID moxifloxacin 400 mg tablet 400 mg PO DAILY 7 Days Qty: 7 0RF prednisone 20 mg tablet 20 mg PO DAILY Qty: 5 0RF furosemide 40 mg tablet 40 mg PO BID oxybutynin chloride 5 mg tablet 5 mg PO DAILY bisacodyl 5 mg Tablet 10 mg PO DAILY PRN (Reason: Constipation) No Action amiodarone 200 mg tablet 200 mg PO DAILY Qty: 90 3RF Other Ambulatory Orders: DME: BIPAP (Order) Timeframe: 1 Week Location: None Selected Ordered By: Uvaldo Stark Sleep Study/Titration (Routine) Timeframe: 2 Weeks Facility: [facility] - Location: [facility] Ordered By: Uvaldo Stark Referrals: Chris Parker DO [Primary Care Provider, Internal Medicine] - 1 week Discharge Diet: Diabetic Patient Instructions: Amiodarone (By mouth), Opioid Safety, Patient Portal & Neeraj Instructions Activity Restrictions/Additional Instructions: Your Constantino was changed on 02/11/2025. I recommend that you follow diet and increase activity and have Constantino removed within the next 1 to 2 weeks. You need to work towards more independence not more dependence on tubes and being bedridden Follow a weight loss diet which would be 2000 judith and no concentrated sweets sugars, desserts, drinks with calories. Avoid completely soda and juice. Small amounts of 2% milk for cereal or oatmeal only. Your goal is to lose 3 to 5 pounds a week or about 1% of your body weight weekly. Once you are losing weight you will decrease that to 3 pounds a week. Wear your BiPAP nightly and even daily whenever you are sleeping or fall off and to sleep. Keep your head and neck extended and not flexed forward which will help you breathe more safely. Because you could not tolerate your BiPAP settings and felt like you were suffocating and having to suck air hard when putting the machine on I reviewed your settings. You had a 30-minute ramp at 4 cm water pressure which would make it hard to breathe until you got up to 4 pressure. Furthermore your mask needs to be replaced, your machine has reached the end of its motor life and may be weak. We used 16/12 settings on our BiPAP machine which worked well but because you were not tolerated years I turned the ramp off and increased it to 17/13 for ED IPAP and EPAP which she tolerated well. You need to go for a repeat BiPAP titration with your physician. Please note that easy start which automatically starts your machine when you put the mask on and automatically stops machine when you take it off was turned off and I noted on 2 occasions that your machine was blowing into the room and remaining on. This significantly decreases the useful life of your machine as it is blowing into an empty room and putting nontherapeutic hours on your machine. I turned that on for your machine. I ordered a sleep study and also requested a new machine for you at this time as yours is and you have gained lots of weight since your initial prescription. I have made the above adjustments in your best interest at this time as you are not tolerating the machine as demonstrated in the hospital by the respiratory therapist. Discharge Attestations Time Spent in Discharge Care*: greater than 30 min Time Spent in Smoking Cessation: Patient is not a smoker Quality Metrics Clinical Quality Measures [ No reported AMI, CVA or VTE this stay] Coding Level of Care Code 91769 Diagnoses Diarrhea R19.7 Chronic atrial fibrillation I48.20 Atrial fibrillation type: unspecified chronic Pancytopenia D61.818 JESSICA (acute kidney injury) N17.9 Chewing tobacco nicotine dependence F17.220 Morbid obesity E66.01 Sleep apnea G47.30 Diabetes mellitus E11.9 Chronic indwelling Constantino catheter Z97.8 Time Spent (min) 55
[2025-02-11] MEDS: dilTIAZem ER (24HR) 180 mg Capsule PO ×2 (13:33)
--- NOTE | 2025-02-13 09:32 | W.PM.EVENTAC ---
Event Note Event Note: Urine culture coming back with moderate 100,000 VRE. [facility] he reports having symptoms of urgency and dysuria with symptomatic cystitis. Constantino catheter was exchanged 2 days ago at the hospital. Discussed with him antibiotic treatment with linezolid, sent to the pharmacy after discussion with his nurse today at the retirement.
== END 2025-02-11 16:30 | disposition intermediate care facility (04) | DRG 392 ==
LOC: ER 12:34 → CSU 16:57
PROVIDERS: Admitting Provider Internal Medicine; Emergency Provider Physician Assistant; PCP Internal Medicine; Visit Provider Internal Medicine
DX: R19.7 Diarrhea, unspecified (principal); I48.20 Chronic atrial fibrillation, unspecified; D61.818 Other pancytopenia; N17.9 Acute kidney failure, unspecified; Z68.45 Body mass index [BMI] 70 or greater, adult; E66.2 Morbid (severe) obesity with alveolar hypoventilation; F17.220 Nicotine dependence, chewing tobacco, uncomplicated; E11.9 Type 2 diabetes mellitus without complications; D64.9 Anemia, unspecified; I11.0 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 heart disease with heart failure; E78.5 Hyperlipidemia, unspecified; J44.9 Chronic obstructive pulmonary disease, unspecified; I50.9 Heart failure, unspecified; Z96.0 Presence of urogenital implants; Z89.612 Acquired absence of left leg above knee; Z79.4 Long term (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 of insulin; Z79.01 Long term (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 of anticoagulants
CPT/HCPCS: 36415; 36416; 51702; 71250; 74176; 76705; 80053; 81001; 82140; 82962; 83605; 83690; 83735; 83880; 84100; 84145; 84443; 84484; 85025; 86140; 87040; 87045; 87077; 87086; 87177; 87186; 87209; 87427; 87449; 87493; 93005; 94640; 94660; 96365; 96367; 96372; 96375; 99285; G0378; J1815; J2405; J3475; J3480; J7120; J7512; J7626; J9999

== ENCOUNTER 2025-02-14 09:08 | Emergency (ER) | payer MEDICARE, MEDICAID, SELFPAY ==
--- OUTSIDE RECORDS SUMMARY | 2025-01-03 01:00 | XMS_ITS ---
Author Organization [facility], [facility] Address [address] [place] [address] Care Team Providers Care Delinquent Account Clerk Name Role Phone FUENTES EDI Irene [phone] REASON FOR VISIT Cystoscopy @ MAIN OR (Charity Lift) Encounters Encounter Location Date Provider Diagnosis [facility], [facility] [address] [facility] [place] [address] 01/03/2025 EDI DILL Plan Of Treatment Next Appt Details Provider Name:Kain Marroquin, 06/25/2025 02:00:00 PM, [address] [place], [address], Progress Notes * Marciano REYES LDOB: 4 (59 yo M)Acc No.[id number]:01/03/2025 Patient: Marciano HEDRICK Provider: Tram DILL MD :1965 A ge:59 Y S ex:Male Date:01/03/2025 Address:[address], [place] * Billing Information: * Visit Code: * Procedure Codes: * Electronic signature of AUST IN MD FUENTES on 02/14/2025 at 09:28 AM CDT Sign off status: Pending * Provider: Tram DILL MD Date: 0 01/03/2025 Generated for Miles silva/Poonam/eTransmitting on: 1 09:28 AM CDT
[2025-02-14] VITALS (7 sets, daily range): BP systolic 111–125; BP diastolic 66–84; PULSE 78–110; RESP 20; TEMP 36.3; O2SAT 95–96; BMI 53.4
--- OUTSIDE RECORDS SUMMARY | 2025-02-14 09:22 | XMS_ITS | Encounter Summary ---
Author Organization [facility] Address [address] Attn: [place] [address] Care Team Providers Care Optometric Tech Name Role Phone Cuba Solano MD Primary Care Provider [phone] Encounter Details Date Type Department Care Team (Late st Contact Info) Description 07/04/2001 Outpatient Historical Donte Borrego MD NO ADDRESS ON FILE Social History Tobacco Use Types Packs/Day Years Used Date Smoking Tobacco: Never Assessed Sex and Gender Information Value Date Recorded Sex Assigned at Not on file Legal Sex Male 2:49 AM [employer] Gender Identity Not on file Sexual Orientation Not on file documented as of this encounter Plan of Treatment Not on file documented as of this encounter Visit Diagnoses Not on filedocumented in this encounter Care Teams Optometric Tech Relationship Specialty Start Date End Date Cuba Solano MD PCP - General 07/11/09 documented as of this encounter
--- OUTSIDE RECORDS SUMMARY | 2025-02-14 09:22 | XMS_ITS | Encounter Summary ---
Author Organization [facility] Address [address] [place] [address] Care Team Providers Care Marketing Performance Analyst Name Role Phone Cuba Solano MD Primary Care Provider +1 -[phone] Encounter Details Date Type Department Care Team (Late st Contact Info) Description 03/02/2008 Outpatient Historical [facility] [address] [address] [place] [address] Kvng Kilpatrick MD NO ADDRESS ON FILE Social History Tobacco Use Types Packs/Day Years Used Date Smoking Tobacco: Never Assessed Cigarettes Smokeless Tobacco: Current Chew Alcohol Use Standard Drinks/Week Comments No 0 (1 standard drink = 0.6 oz pur e alcohol) Sex and Gender Information Value Date Recorded Sex Assigned at Not on file Legal Sex Male 2:49 AM PSYCHIATRY RESIDENT Gender Identity Not on file Sexual Orientation Not on file documented as of this encounter Plan of Treatment Not on file documented as of this encounter Visit Diagnoses Not on filedocumented in this encounter Care Teams Marketing Performance Analyst Relationship Specialty Start Date End Date Cuba Solano MD PCP - General 07/11/09 documented as of this encounter
--- OUTSIDE RECORDS SUMMARY | 2025-02-14 09:22 | XMS_ITS | Encounter Summary ---
Author Organization [facility] Address [address] [place] [address] Care Team Providers Care Shift Manager Name Role Phone Cuba Solano MD Primary Care Provider +1 [phone] Encounter Details Date Type Department Care Team (Latest Contact Info) Description 11/22/2000 Outpatient Historical [facility] Family Medicine [place] [address] [address] Dotne Borrego MD NO ADDRESS ON FILE Other and unspecified hyperlipidemia (Primary Dx); Encounter for long-term (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 of other medications Social History Tobacco Use Types Packs/Day Years Used Date Smoking Tobacco: Never Assessed Sex and Gender Information Value Date Recorded Sex Assigned at Not on file Legal Sex Male 2:49 AM DONATION SPECIALIST Gender Identity Not on file Sexual Orientation Not on file documented as of this encounter Plan of Treatment Not on file documented as of this encounter Visit Diagnoses Diagnosis Other and unspecified hyperlipidemia- Primary Encounter for long-term (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 of other medications documented in this encounter Care Teams Shift Manager Relationship Specialty Start Date End Date Cuba Solano MD PCP - General 07/11/09 documented as of this encounter
--- OUTSIDE RECORDS SUMMARY | 2025-02-14 09:22 | XMS_ITS | Encounter Summary ---
Author Organization [facility] Address [address] [place] [address] Care Team Providers Care Business Education Teacher Name Role Phone Cuba Solano MD Primary Care Provider +1 [phone] Encounter Details Date Type Department Care Team (Latest Contact Info) Description 05/30/2001 Outpatient Historical [facility] Family Medicine [place] [address] [address] Donte Borrego MD NO ADDRESS ON FILE HYPERTENSION NOS (Primary Dx); ACUTE SINUSITIS NOS; KERATODERMA, ACQUIRED; HYPERLIPIDEMIA NEC/NOS Social History Tobacco Use Types Packs/Day Years Used Date Smoking Tobacco: Never Assessed Sex and Gender Information Value Date Recorded Sex Assigned at Not on file Legal Sex Male 2:49 AM LOAN WORKOUT OFFICER Gender Identity Not on file Sexual Orientation Not on file documented as of this encounter Plan of Treatment Not on file documented as of this encounter Visit Diagnoses Diagnosis Unspecified essential hypertension- Primary Acute sinusitis, unspecified Acquired keratoderma Other and unspecified hyperlipidemia documented in this encounter Care Teams Business Education Teacher Relationship Specialty Start Date End Date Cuba Solano MD PCP - General 07/11/09 documented as of this encounter
--- OUTSIDE RECORDS SUMMARY | 2025-02-14 09:22 | XMS_ITS | Encounter Summary ---
Author Organization [facility] Address [address] [place] [address] Care Team Providers Care Birth Certificate Clerk Name Role Phone Cuba Solano MD Primary Care Provider +1 [phone] Encounter Details Date Type Department Care Team (Latest Contact Info) Description 07/20/2005 [facility] [address] [place] [address] Huey Upton Jr., MD [address] [place] [address] [address] [place] [address] DM w/o Complication Type II (CMS/HCC) (Primary Dx) Social History Tobacco Use Types Packs/Day Years Used Date Smoking Tobacco: Never Assessed Sex and Gender Information Value Date Recorded Sex Assigned at Not on file Legal Sex Male 2:49 AM SOFTWARE PROJECT MANAGER Gender Identity Not on file Sexual Orientation Not on file documented as of this encounter Plan of Treatment Not on file documented as of this encounter Visit Diagnoses Diagnosis Type II or unspecified type diabetes mellitus 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, not stated as uncontrolled- Primary documented in this encounter Care Teams Birth Certificate Clerk Relationship Specialty Start Date End Date Cuba Solano MD PCP - General 07/11/09 documented as of this encounter
--- OUTSIDE RECORDS SUMMARY | 2025-02-14 09:22 | XMS_ITS | Encounter Summary ---
Author Organization [facility] Address [address] [place] [address] Care Team Providers Care Customizer Name Role Phone Cuba Solano MD Primary Care Provider +1 [phone] Encounter Details Date Type Department Care Team (Latest Contact Info) Description 05/11/2001 Outpatient Historical [facility] Family Medicine [place] [address] [address] Donte Borrego MD NO ADDRESS ON FILE ACUTE SINUSITIS NOS (Primary Dx); CONJUNCTIVAL HEMORRHAGE; HYPERTENSION NOS Social History Tobacco Use Types Packs/Day Years Used Date Smoking Tobacco: Never Assessed Sex and Gender Information Value Date Recorded Sex Assigned at Not on file Legal Sex Male 2: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 PRIVATE Gender Identity Not on file Sexual Orientation Not on file documented as of this encounter Plan of Treatment Not on file documented as of this encounter Visit Diagnoses Diagnosis Acute sinusitis, unspecified- Primary Conjunctival hemorrhage Unspecified essential hypertension documented in this encounter Care Teams Customizer Relationship Specialty Start Date End Date Cuba Solano MD PCP - General 07/11/09 documented as of this encounter
--- OUTSIDE RECORDS SUMMARY | 2025-02-14 09:22 | XMS_ITS | Encounter Summary ---
Author Organization [facility] Address [address] [place] [address] Care Team Providers Care Biomaterials Engineer Name Role Phone Cuba Solano MD Primary Care Provider +1 [phone] Encounter Details Date Type Department Care Team (Latest Contact Info) Description 05/15/[address] [facility] Family Medicine [place] [address] [address] Keyona Mccloud, LUCIEN NO ADDRESS ON FILE DIABETES MELLITUS TYPE II-UNCOMPL (CMS/HCC) (Primary Dx); HYPERLIPIDEMIA NEC/NOS; ACUTE URI NOS Social History Tobacco Use Types Packs/Day Years Used Date Smoking Tobacco: Never Assessed Sex and Gender Information Value Date Recorded Sex Assigned at Not on file Legal Sex Male 2:49 AM FOOD AND BEVERAGE ANALYST Gender Identity Not on file Sexual Orientation Not on file documented as of this encounter Plan of Treatment Not on file documented as of this encounter Visit Diagnoses Diagnosis Type II or unspecified type diabetes mellitus 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, not stated as uncontrolled- Primary Other and unspecified hyperlipidemia Acute upper respiratory infections of unspecified site documented in this encounter Care Teams Biomaterials Engineer Relationship Specialty Start Date End Date Cuba Solano MD PCP - General 07/11/09 documented as of this encounter
--- OUTSIDE RECORDS SUMMARY | 2025-02-14 09:22 | XMS_ITS | Encounter Summary ---
Author Organization [facility] Address [address] [place] [address] Care Team Providers Care Automation Tester Name Role Phone Cuba Solano MD Primary Care Provider +1 [phone] Encounter Details Date Type Department Care Team (Late st Contact Info) Description 07/20/2005 Outpatient Historical [facility] Family Medicine [place] [address] [address] Social History Tobacco Use Types Packs/Day Years Used Date Smoking Tobacco: Never Assessed Sex and Gender Information Value Date Recorded Sex Assigned at Not on file Legal Sex Male 2:49 AM CRM ANALYST Gender Identity Not on file Sexual Orientation Not on file documented as of this encounter Plan of Treatment Not on file documented as of this encounter Visit Diagnoses Not on filedocumented in this encounter Care Teams Automation Tester Relationship Specialty Start Date End Date Cuba Solano MD PCP - General 07/11/09 documented as of this encounter
--- OUTSIDE RECORDS SUMMARY | 2025-02-14 09:22 | XMS_ITS | Encounter Summary ---
Author Organization [facility] Address [address] [place] [address] Care Team Providers Care Radial Drill Press Operator For Plastic Name Role Phone Cuba Solano MD Primary Care Provider +1 [phone] Encounter Details Date Type Department Care Team (Late st Contact Info) Description 05/12/2005 Outpatient Historical [facility] Family Medicine [place] [address] [address] Social History Tobacco Use Types Packs/Day Years Used Date Smoking Tobacco: Never Assessed Sex and Gender Information Value Date Recorded Sex Assigned at Not on file Legal Sex Male 2:49 AM SANITATION SUPERINTENDENT Gender Identity Not on file Sexual Orientation Not on file documented as of this encounter Plan of Treatment Not on file documented as of this encounter Visit Diagnoses Not on filedocumented in this encounter Care Teams Radial Drill Press Operator For Plastic Relationship Specialty Start Date End Date Cuba Solano MD PCP - General 07/11/09 documented as of this encounter
--- OUTSIDE RECORDS SUMMARY | 2025-02-14 09:22 | XMS_ITS | Encounter Summary ---
Author Organization [facility] Address [address] [facility] Attn: [place] [address] Care Team Providers Care Photographic Process Attendant Name Role Phone Cuba Solano MD Primary Care Provider +1 -[phone] Encounter Details Date Type Department Care Team (Late st Contact Info) Description 05/31/2001 Outpatient Historical Donte Borrego MD NO ADDRESS ON FILE Social History Tobacco Use Types Packs/Day Years Used Date Smoking Tobacco: Never Assessed Sex and Gender Information Value Date Recorded Sex Assigned at Not on file Legal Sex Male 2:49 AM CASH POSTING CLERK Gender Identity Not on file Sexual Orientation Not on file documented as of this encounter Plan of Treatment Not on file documented as of this encounter Visit Diagnoses Not on filedocumented in this encounter Care Teams Photographic Process Attendant Relationship Specialty Start Date End Date Cuba Solano MD PCP - General 07/11/09 documented as of this encounter
--- OUTSIDE RECORDS SUMMARY | 2025-02-14 09:22 | XMS_ITS | Encounter Summary ---
Author Organization [facility] Address [address] [place] [address] Care Team Providers Care Solar System Installer Name Role Phone Cuba Solano MD Primary Care Provider +1 -[phone] Encounter Details Date Type Department Care Team [...] on file Legal Sex Male 2:49 AM CASTING AND PASTING SUPERVISOR Gender Identity Not on file Sexual Orientation Not on file documented as of this encounter Plan of Treatment Not on file documented as of this encounter Visit Diagnoses Not on filedocumented in this encounter Care Teams Solar System Installer Relationship Specialty Start Date End Date Cuba Solano MD PCP - General 07/11/09 documented as of this encounter
--- OUTSIDE RECORDS SUMMARY | 2025-02-14 09:22 | XMS_ITS | Encounter Summary ---
Author Organization [facility] Address [address] [place] [address] Care Team Providers Care Freelance Art Director Name Role Phone Cuba Solano MD Primary Care Provider +1 -[phone] Encounter Details Date Type Department Care Team (Latest Contact Info) Description 09/06/2000 Outpatient Historical [facility] [place] [address] [place] [address] Other convulsions (Primary Dx) Social History Tobacco Use Types Packs/Day Years Used Date Smoking Tobacco: Never Assessed Sex and Gender Information Value Date Recorded Sex Assigned at Not on file Legal Sex Male 2:49 AM CLASSIFIER OPERATOR Gender Identity Not on file Sexual Orientation Not on file documented as of this encounter Plan of Treatment Not on file documented as of this encounter Visit Diagnoses Diagnosis Other convulsions- Primary documented in this encounter Care Teams Freelance Art Director Relationship Specialty Start Date End Date Cuba Solano MD PCP - General 07/11/09 documented as of this encounter
--- OUTSIDE RECORDS SUMMARY | 2025-02-14 09:22 | XMS_ITS | Encounter Summary ---
Author Organization [facility] Address [address] [place] [address] Care Team Providers Care Pantograph Machine Operator Name Role Phone Cuba Solano MD Primary Care Provider +1 -[phone] Encounter Details Date Type Department Care Team (Late st Contact Info) Description 04/10/[address] [facility] [address] [place] [address] [place] [address] Per Perea NP [address] [place] [address] Social History Tobacco Use Types Packs/Day Years Used Date Smoking Tobacco: Never Assessed Cigarettes Smokeless Tobacco: Current Chew Alcohol Use Standard Drinks/Week Comments No 0 (1 standard drink = 0.6 oz pur e alcohol) Sex and Gender Information Value Date Recorded Sex Assigned at Not on file Legal Sex Male 2:49 AM CREDIT OFFICER Gender Identity Not on file Sexual Orientation Not on file documented as of this encounter Plan of Treatment Not on file documented as of this encounter Visit Diagnoses Not on filedocumented in this encounter Care Teams Pantograph Machine Operator Relationship Specialty Start Date End Date Cuba Solano MD PCP - General 07/11/09 documented as of this encounter
--- OUTSIDE RECORDS SUMMARY | 2025-02-14 09:22 | XMS_ITS | Encounter Summary ---
Author Organization [facility] Address [address] [place] [address] Care Team Providers Care Network Architect Name Role Phone Cuba Solano MD Primary Care Provider +1 -[phone] Encounter Details Date Type Department Care Team (Latest Contact Info) Description 05/26/2005 Outpatient Historical [facility] Family Medicine [place] [address] [address] Keyona Mccloud, LUCIEN NO ADDRESS ON FILE ALLERGY, UNSPECIFIED (Primary Dx); TRACHEA/BRONCHUS DIS NEC Social History Tobacco Use Types Packs/Day Years Used Date Smoking Tobacco: Never Assessed Sex and Gender Information Value Date Recorded Sex Assigned at Not on file Legal Sex Male 2:49 AM HAND DEVELOPER Gender Identity Not on file Sexual Orientation Not on file documented as of this encounter Plan of Treatment Not on file documented as of this encounter Visit Diagnoses Diagnosis Allergy, unspecified not elsewhere classified- Primary Other diseases of trachea and bronchus, not elsewhere classified documented in this encounter Care Teams Network Architect Relationship Specialty Start Date End Date Cuba Solano MD PCP - General 07/11/09 documented as of this encounter
--- OUTSIDE RECORDS SUMMARY | 2025-02-14 09:22 | XMS_ITS | Encounter Summary ---
Author Organization [facility] Address [address] [place] [address] Care Team Providers Care Burrer Operator Name Role Phone Cuba Solano MD Primary Care Provider +1 -[phone] Encounter Details Date Type Department Care Team (Latest Contact Info) Description 07/04/2001 Outpatient Historical [facility] Family Medicine [place] [address] [address] Donte Borrego MD NO ADDRESS ON FILE HYPERTENSION NOS (Primary Dx); HYPERLIPIDEMIA NEC/NOS; AFTERCARE GROUP HOME USE MEDICATN; VACCINE FOR STREP PNEUMONIAE Social History Tobacco Use Types Packs/Day Years Used Date Smoking Tobacco: Never Assessed Sex and Gender Information Value Date Recorded Sex Assigned at Not on file Legal Sex Male 2:49 AM MANUFACTURING PROJECT MANAGER Gender Identity Not on file [...] (pneumococcus) documented in this encounter Care Teams Burrer Operator Relationship Specialty Start Date End Date Cuba Solano MD PCP - General 07/11/09 documented as of this encounter
--- OUTSIDE RECORDS SUMMARY | 2025-02-14 09:22 | XMS_ITS | Encounter Summary ---
Author Organization [facility] Address [address] [place] [address] Care Team Providers Care Managing Principal Name Role Phone Cuba Solano MD Primary Care Provider +1 -[phone] Encounter Details Date Type Department Care Team (Latest Contact Info) Description 04/17/2005 Outpatient Historical [facility] Family Medicine [place] [facility] [address] [address] Huey Upton Jr., MD [address] [place] [address] [address] [facility] [address] [place] [address] ALLERGY, UNSPECIFIED (Primary Dx) Social History Tobacco Use Types Packs/Day Years Used Date Smoking Tobacco: Never Assessed Sex and Gender Information Value Date Recorded Sex Assigned at Not on file Legal Sex Male 2:49 AM FINISHING RANGE OPERATOR Gender Identity Not on file Sexual Orientation Not on file documented as of this encounter Plan of Treatment Not on file documented as of this encounter Visit Diagnoses Diagnosis Allergy, unspecified not elsewhere classified- Primary documented in this encounter Care Teams Managing Principal Relationship Specialty Start Date End Date Cuba Solano MD PCP - General 07/11/09 documented as of this encounter
--- OUTSIDE RECORDS SUMMARY | 2025-02-14 09:22 | XMS_ITS | Encounter Summary ---
Author Organization [facility] Address [address] [place] [address] Care Team Providers Care Chief Informatics Officer Name Role Phone Cuba Solano MD Primary Care Provider +1 -[phone] Encounter Details Date Type Department Care Team (Latest Contact Info) Description 07/30/2005 Outpatient Historical [facility] Family Medicine [place] [address] [address] Keyona Mccloud, LUCIEN NO ADDRESS ON FILE Unspecified Otitis Media (Primary Dx) Social History Tobacco Use Types Packs/Day Years Used Date Smoking Tobacco: Never Assessed Sex and Gender Information Value Date Recorded Sex Assigned at Not on file Legal Sex Male 2:49 AM ICE GUARD INSPECTOR Gender Identity Not on file Sexual Orientation Not on file documented as of this encounter Plan of Treatment Not on file documented as of this encounter Visit Diagnoses Diagnosis Unspecified otitis media- Primary documented in this encounter Care Teams Chief Informatics Officer Relationship Specialty Start Date End Date Cuba Solano MD PCP - General 07/11/09 documented as of this encounter
--- OUTSIDE RECORDS SUMMARY | 2025-02-14 09:22 | XMS_ITS | Encounter Summary ---
Author Organization [facility] Address [address] [facility] Attn: [place] [address] Care Team Providers Care Coat Repair Inspector Name Role Phone Cuba Solano MD Primary Care Provider +1 -[phone] Encounter Details Date Type Department Care Team (Late st Contact Info) Description 04/08/2001 Outpatient Historical Donte Borrego MD NO ADDRESS ON FILE Social History Tobacco Use Types Packs/Day Years Used Date Smoking Tobacco: Never Assessed Sex and Gender Information Value Date Recorded Sex Assigned at Not on file Legal Sex Male 2:49 AM COMPUTER TYPESETTER Gender Identity Not on file Sexual Orientation Not on file documented as of this encounter Plan of Treatment Not on file documented as of this encounter Visit Diagnoses Not on filedocumented in this encounter Care Teams Coat Repair Inspector Relationship Specialty Start Date End Date Cuba Solano MD PCP - General 07/11/09 documented as of this encounter
--- OUTSIDE RECORDS SUMMARY | 2025-02-14 09:22 | XMS_ITS | Encounter Summary ---
Author Organization [facility] Address [address] [place] [address] Care Team Providers Care Potato Chip Sacking Machine Operator Name Role Phone Cuba Solano MD Primary Care Provider +1 -[phone] Encounter Details Date Type Department Care Team (Latest Contact Info) Description 07/11/[address] [facility] Family Medicine [place] [address] [address] Donte Borrego MD NO ADDRESS ON FILE Benign hypertension (Primary Dx); OSTEOARTHROS NOS-UNSPEC Social History Tobacco Use Types Packs/Day Years Used Date Smoking Tobacco: Never Assessed Sex and Gender Information Value Date Recorded Sex Assigned at Not on file Legal Sex Male 2:49 AM HOSE SPRAYER Gender Identity Not on file Sexual Orientation Not on file documented as of this encounter Plan of Treatment Not on file documented as of this encounter Visit Diagnoses Diagnosis Benign hypertension- Primary Essential hypertension, benign Osteoarthrosis, unspecified whether generalized or localized, unspecified site documented in this encounter Care Teams Potato Chip Sacking Machine Operator Relationship Specialty Start Date End Date Cuba Solano MD PCP - General 07/11/09 documented as of this encounter
--- OUTSIDE RECORDS SUMMARY | 2025-02-14 09:22 | XMS_ITS | Encounter Summary ---
Author Organization [facility] Address [address] [place] [address] Care Team Providers Care Staff Respiratory Therapist Name Role Phone Cuba Solano MD Primary Care Provider +1 -[phone] Encounter Details Date Type Department Care Team (Latest Contact Info) Description 04/07/2001 Outpatient Historical [facility] Family Medicine [place] [address] [address] Donte Borrego MD NO ADDRESS ON FILE HYPERTENSION NOS (Primary Dx); AFTERCARE CABBAGE SALTER USE MEDICATN; ANEMIA NOS; VACCINE FOR INFLUENZA [...] diseases documented in this encounter Care Teams Staff Respiratory Therapist Relationship Specialty Start Date End Date Cuba Solano MD PCP - General 07/11/09 documented as of this encounter
--- OUTSIDE RECORDS SUMMARY | 2025-02-14 09:22 | XMS_ITS | Encounter Summary ---
Author Organization [facility] Address [address] [place] [address] Care Team Providers Care Leather Tanner Name Role Phone Cuba Solano MD Primary Care Provider +1 -[phone] Encounter Details Date Type Department Care Team (Latest Contact Info) Description 01/07/2001 Outpatient Historical [facility] Family Medicine [place] [facility] [address] [address] Zara Royal, DO [address] [place] [address] Unspecified essential hypertension (Primary Dx); Other and unspecified hyperlipidemia; Allergy, unspecified not elsewhere classified; Traumatic amputation of leg(s) (complete) (partial), unilateral, at or above knee, 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 Social History Tobacco Use Types Packs/Day Years Used Date Smoking Tobacco: Never Assessed Sex and Gender Information Value Date Recorded Sex Assigned at Not on file Legal Sex Male 2:49 AM ENGRAVER APPRENTICE DECORATIVE Gender Identity Not on file Sexual Orientation Not on file documented as of this encounter Plan of Treatment Not on file documented as of this encounter Visit Diagnoses Diagnosis Unspecified essential hypertension- Primary Other and unspecified hyperlipidemia Allergy, unspecified not elsewhere classified Traumatic amputation of leg(s) (complete) (partial), unilateral, at or above knee, 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
--- NOTE | 2025-02-14 09:23 | XRR_ITS ---
PROCEDURE INFORMATION: Exam: XR Chest Exam date and time: 02/14/2025 9:53 AM Age: 59 years old Clinical indication: Cough and dyspnea; Additional info: Dyspnea/cough TECHNIQUE: Imaging protocol: Radiologic exam of the chest. Views: 1 view. COMPARISON[place] [id number] 02/09/2025 5:03 PM FINDINGS: Lungs: Curvilinear density again seen along the left upper lung zone, similar to prior and likely a skin fold or other artifact. Lung markings extend beyond this to the periphery of the chest cavity, making pneumothorax less likely. Patchy opacities in the left mid to lower lung zone in the right lung base, similar to prior. Pleural spaces: Moderate left pleural effusion suspected. Heart/Mediastinum: Stable cardiomediastinal silhouette given patient positioning and rotation. Diaphragm: Silhouetting of the left hemidiaphragm. Bones/joints: Unremarkable. Other findings: Suboptimal image quality due to patient positioning. XR/XR chest 1V portable [id number] IMPRESSION: Little interval change.
--- OUTSIDE RECORDS SUMMARY | 2025-02-14 09:23 | XMS_ITS | Encounter Summary ---
Author Organization [facility] Address [address] [facility] Attn: [place] [address] Care Team Providers Care Shared Services Representative Name Role Phone Cuba Solano MD Primary Care Provider +1 [phone] Encounter Details Date Type Department Care Team (Late st Contact Info) Description 11/22/2000 Outpatient Historical Donte Borrego MD NO ADDRESS ON FILE Social History Tobacco Use Types Packs/Day Years Used Date Smoking Tobacco: Never Assessed Sex and Gender Information Value Date Recorded Sex Assigned at Not on file Legal Sex Male 2:49 AM ABSTRACT CHECKER Gender Identity Not on file Sexual Orientation Not on file documented as of this encounter Plan of Treatment Not on file documented as of this encounter Visit Diagnoses Not on filedocumented in this encounter Care Teams Shared Services Representative Relationship Specialty Start Date End Date Cuba Solano MD PCP - General 07/11/09 documented as of this encounter
--- OUTSIDE RECORDS SUMMARY | 2025-02-14 09:23 | XMS_ITS | Encounter Summary ---
Author Organization [facility] Address [address] [place] [address] Care Team Providers Care Prototype Fabricator Name Role Phone Cuba Solano MD Primary Care Provider +1 [phone] Encounter Details Date Type Department Care Team (Latest Contact Info) Description 11/25/2005 Outpatient Historical [facility] Orthoped[facility] [place] [address] Ash Lopez III, MD [address] 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
--- OUTSIDE RECORDS SUMMARY | 2025-02-14 09:23 | XMS_ITS | Encounter Summary ---
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
--- OUTSIDE RECORDS SUMMARY | 2025-02-14 09:23 | XMS_ITS | Encounter Summary ---
Author Organization [facility] Address [address] [place] [address] Care Team Providers Care Halal Butcher Name Role Phone Cuba Solano MD Primary Care Provider +1 [phone] Encounter Details Date Type Department Care Team (Late st Contact Info) Description 02/24/2008 Outpatient Historical [facility] DEFAULT DEPARTMENT Kvng Kilpatrick MD NO ADDRESS ON FILE Social History Tobacco Use Types Packs/Day Years Used Date Smoking Tobacco: Never Assessed Cigarettes Smokeless Tobacco: Current Chew Alcohol Use Standard Drinks/Week Comments No 0 (1 standard drink = 0.6 oz pur e alcohol) Sex and Gender Information Value Date Recorded Sex Assigned at Not on file 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
--- OUTSIDE RECORDS SUMMARY | 2025-02-14 09:23 | XMS_ITS | Encounter Summary ---
Author Organization [facility] Address [address] [facility] Attn: [place] [address] Care Team Providers Care Levelman Name Role Phone Cuba Solano MD Primary Care Provider +1 [phone] Encounter Details Date Type Department Care Team (Late st Contact Info) Description 10/05/2000 Outpatient Historical Donte Borrego MD NO ADDRESS ON FILE Social History Tobacco Use Types Packs/Day Years Used Date Smoking Tobacco: Never Assessed Sex and Gender Information Value Date Recorded Sex Assigned at Not on file Legal Sex Male 2:49 AM NIGHT BAKER Gender Identity Not on file Sexual Orientation Not on file documented as of this encounter Plan of Treatment Not on file documented as of this encounter Visit Diagnoses Not on filedocumented in this encounter Care Teams Levelman Relationship Specialty Start Date End Date Cuba Solano MD PCP - General 07/11/09 documented as of this encounter
--- OUTSIDE RECORDS SUMMARY | 2025-02-14 09:23 | XMS_ITS | Encounter Summary ---
Author Organization [facility] Address [address] [place] [address] Care Team Providers Care Tailings Dam Laborer Name Role Phone Cuba Solano MD Primary Care Provider +1 [phone] Encounter Details Date Type Department Care Team (Latest Contact Info) Description 01/04/2002 Outpatient [facility] Family Medicine [place] [address] [address] Donte Borrego MD NO ADDRESS ON FILE ACUTE PHARYNGITIS (Primary Dx); ALLERGIC RHINITIS NEC Social History Tobacco Use Types Packs/Day Years Used Date Smoking Tobacco: Never Assessed Sex and Gender Information Value Date Recorded Sex Assigned at Not on file 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
--- OUTSIDE RECORDS SUMMARY | 2025-02-14 09:23 | XMS_ITS | Encounter Summary ---
Author Organization [facility] Address [address] [place] [address] Care Team Providers Care Ball Shagger Name Role Phone Cuba Solano MD Primary Care Provider +1 [phone] Encounter Details Date Type Department Care Team (Latest Contact Info) Description 04/10/2002 Outpatient [facility] Family Medicine [place] [address] [address] Donte Borrego MD NO ADDRESS ON FILE B-COMPLEX DEFIC NEC (Primary Dx); OTHER MALAISE AND FATIGUE; HYPERLIPIDEMIA NEC/NOS Social History Tobacco Use Types Packs/Day Years Used Date Smoking Tobacco: Never Assessed Sex and Gender Information Value Date Recorded Sex Assigned at Not on file Legal 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
--- OUTSIDE RECORDS SUMMARY | 2025-02-14 09:23 | XMS_ITS | Encounter Summary ---
Author Organization [facility] Address [address] [place] [address] Care Team Providers Care Business Loan Processor Name Role Phone Cuba Solano MD Primary Care Provider +1 [phone] Encounter Details Date Type Department Care Team (Late st Contact Info) Description 03/01/2008 Outpatient Historical [facility] [address] [place] [address] Kvng Kilpatrick MD NO ADDRESS ON FILE Social History Tobacco Use Types Packs/Day Years Used Date Smoking Tobacco: Never Assessed Cigarettes Smokeless Tobacco: Current Chew Alcohol Use Standard Drinks/Week Comments No 0 (1 standard drink = 0.6 oz pur e alcohol) Sex and Gender Information Value Date Recorded Sex Assigned at Not on file 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
--- OUTSIDE RECORDS SUMMARY | 2025-02-14 09:23 | XMS_ITS | Encounter Summary ---
Author Organization [facility] Address [address] [place] [address] Care Team Providers Care Assembler Sandal Parts Name Role Phone Cuba Solano MD Primary Care Provider +1 [phone] Encounter Details Date Type Department Care Team (Latest Contact Info) Description 02/09/2000 Outpatient Historical [facility] Family Medicine [place] [address] [address] Donte Borrego MD NO ADDRESS ON FILE Unspecified suppurative otitis media (Primary Dx); Acute upper respiratory infections of unspecified site Social History Tobacco Use Types Packs/Day Years Used Date Smoking Tobacco: Never Assessed Sex and Gender Information Value Date Recorded Sex Assigned at Not on file Legal 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
--- OUTSIDE RECORDS SUMMARY | 2025-02-14 09:23 | XMS_ITS | Encounter Summary ---
Author Organization [facility] Address [address] [place] [address] Care Team Providers Care Physician Office Specialist Name Role Phone Cuba Solano MD Primary Care Provider +1 [phone] Encounter Details Date Type Department Care Team (Latest Contact Info) Description 04/13/2002 Outpatient Historical [facility] Family Medicine [place] [address] [address] Donte Borrego MD NO ADDRESS ON FILE ACUTE URI NOS (Primary Dx) Social History Tobacco Use Types Packs/Day Years Used Date Smoking Tobacco: Never Assessed Sex and Gender Information Value Date Recorded Sex Assigned at Not on file Legal 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
--- OUTSIDE RECORDS SUMMARY | 2025-02-14 09:23 | XMS_ITS | Encounter Summary ---
Author Organization [facility] Address [address] [place] [address] Care Team Providers Care Ground Operations Supervisor Name Role Phone Cuba Solano MD Primary Care Provider +1 -[phone] Encounter Details Date Type Department Care Team (Latest Contact Info) Description 03/03/2002 Outpatient [facility] Family Medicine [place] [address] [address] Donte Borrego MD NO ADDRESS ON FILE OTHER MALAISE AND FATIGUE (Primary Dx); B-COMPLEX DEFIC NEC Social History Tobacco Use Types Packs/Day Years Used Date Smoking Tobacco: Never Assessed Sex and Gender Information Value Date Recorded Sex Assigned at Not on file Legal 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
--- OUTSIDE RECORDS SUMMARY | 2025-02-14 09:23 | XMS_ITS | Encounter Summary ---
Author Organization [facility] Address [address] [place] [address] Care Team Providers Care Film Rental Clerk Name Role Phone Cuba Solano MD Primary Care Provider +1 [phone] Encounter Details Date Type Department Care Team (Latest Contact Info) Description 01/18/2002 Outpatient Historical [facility] Family Medicine [place] [address] [address] Donte Borrego MD NO ADDRESS ON FILE DISEASES OF LIPS (Primary Dx); ALLERGY, UNSPECIFIED Social History Tobacco Use Types Packs/Day Years Used Date Smoking Tobacco: Never Assessed Sex and Gender Information Value Date Recorded Sex Assigned at Not on file Legal Sex Male 2:49 AM WHISKEY 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
--- OUTSIDE RECORDS SUMMARY | 2025-02-14 09:23 | XMS_ITS | Encounter Summary ---
Author Organization [facility] Address [address] [place] [address] Care Team Providers Care Manufacturing Technology Analyst Name Role Phone Cuba Solano MD Primary Care Provider +1 -[phone] Encounter Details Date Type Department Care Team (Latest Contact Info) Description 09/15/[address] 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
--- OUTSIDE RECORDS SUMMARY | 2025-02-14 09:23 | XMS_ITS | Encounter Summary ---
Author Organization [facility] Address [address] [place] [address] Care Team Providers Care Instructor Substitute Cosmetology Name Role Phone Cuba Solano MD Primary Care Provider +1 -[phone] Encounter Details Date Type Department Care Team (Latest Contact Info) Description 02/06/2005 Outpatient Historical [facility] Family Medicine [place] [facility] [address] [address] Huey Upton Jr., MD [address] [place] [address] 248 [facility] [address] [place] [address] HAIR DISEASES NEC (Primary Dx); DIABETES MELLITUS TYPE II-UNCOMPL (CMS/[facility]); Dysfunct eustachian tube; Vaccine for influenza Social History Tobacco Use Types Packs/Day Years Used Date Smoking Tobacco: Never Assessed Sex and Gender Information Value Date Recorded Sex Assigned at Not on file Legal Sex Male 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
--- OUTSIDE RECORDS SUMMARY | 2025-02-14 09:23 | XMS_ITS | Encounter Summary ---
Author Organization [facility] Address [address] [place] [address] Care Team Providers Care Project Manager Retail Name Role Phone Cuba Solano MD Primary Care Provider +1 -[phone] Encounter Details Date Type Department Care Team (Latest Contact Info) Description 01/18/[address] [facility] 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
--- OUTSIDE RECORDS SUMMARY | 2025-02-14 09:23 | XMS_ITS | Encounter Summary ---
Author Organization [facility] Address [address] [place] [address] Care Team Providers Care Landscape Painter Name Role Phone Cuba Solano MD Primary Care Provider +1 [phone] Encounter Details Date Type Department Care Team (Latest Contact Info) Description 07/07/2000 Outpatient Historical [facility] Family Medicine [place] [address] [address] Donte Borrego MD NO ADDRESS ON FILE Unspecified essential hypertension (Primary Dx); Obesity, unspecified; Allergy, unspecified not elsewhere classified; Actinic keratosis Social History Tobacco Use Types Packs/Day Years Used Date Smoking Tobacco: Never Assessed Sex and Gender Information Value Date Recorded Sex Assigned at Not on file Legal 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
--- OUTSIDE RECORDS SUMMARY | 2025-02-14 09:23 | XMS_ITS | Encounter Summary ---
Author Organization [facility] Address [address] [place] [address] Care Team Providers Care Independent Sales Representative Name Role Phone Cuba Solano MD Primary Care Provider +1 -[phone] Encounter Details Date Type Department Care Team (Latest Contact Info) Description 01/09/2005 Outpatient Historical [facility] Family Medicine [place] [facility] [address] [address] Huey Upton Jr., MD [address] [place] [address] 248 [facility] [address] [place] [address] DERMATITIS NEC (Primary Dx) Social History Tobacco Use Types Packs/Day Years Used Date Smoking Tobacco: Never Assessed Sex and Gender Information Value Date Recorded Sex Assigned at Not on file Legal 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
--- OUTSIDE RECORDS SUMMARY | 2025-02-14 09:23 | XMS_ITS | Encounter Summary ---
Author Organization [facility] Address [address] [place] [address] Care Team Providers Care Chick Sexer Name Role Phone Cuba Solano MD Primary Care Provider +1 -[phone] Encounter Details Date Type Department Care Team (Latest Contact Info) Description 12/03/2004 Outpatient Historical [facility] Orthopedics- 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
--- OUTSIDE RECORDS SUMMARY | 2025-02-14 09:23 | XMS_ITS | Encounter Summary ---
Author Organization [facility] Address [address] [place] [address] Care Team Providers Care Tnt Powder Worker Name Role Phone Cuba Solano MD Primary Care Provider +1 -[phone] Encounter Details Date Type Department Care Team (Late st Contact Info) Description 03/19/2008 Outpatient Historical [facility] Keyona Mccloud, ARCGIS DEVELOPER NO ADDRESS ON FILE Social History Tobacco Use Types Packs/Day Years Used Date Smoking Tobacco: Never Assessed Cigarettes Smokeless Tobacco: Current Chew Alcohol Use Standard Drinks/Week Comments No 0 (1 standard drink = 0.6 oz pur e alcohol) Sex and Gender Information Value Date Recorded Sex Assigned at Not on file Legal Sex Male 2:49 AM 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
--- OUTSIDE RECORDS SUMMARY | 2025-02-14 09:23 | XMS_ITS | Encounter Summary ---
Author Organization [facility] Address [address] [place] [address] Care Team Providers Care Avian Keeper Name Role Phone Cuba Solano MD Primary Care Provider +1 [phone] Encounter Details Date Type Department Care Team (Latest Contact Info) Description 03/05/2006 Outpatient Historical [facility] Family Medicine [place]ica [place] [id number] [address] [address] Keyona Mccloud, LUCIEN NO ADDRESS ON FILE Unspecified Essential Hypertension (Primary Dx); Edema Social History Tobacco Use Types Packs/Day Years Used Date Smoking Tobacco: Never Assessed Sex and Gender Information Value Date Recorded Sex Assigned at Not on file Legal Sex Male 2:49 AM TAR WORKER Gender Identity Not on file Sexual Orientation Not on file documented as of this encounter Plan of Treatment Not on file documented as of this encounter Visit Diagnoses Diagnosis Unspecified essential hypertension- Primary Edema documented in this encounter Care Teams Avian Keeper Relationship Specialty Start Date End Date Cuba Solano MD PCP - General 07/11/09 documented as of this encounter
--- OUTSIDE RECORDS SUMMARY | 2025-02-14 09:23 | XMS_ITS | Encounter Summary ---
Author Organization [facility] Address [address] [place] [address] Care Team Providers Care Chicle Grinder Feeder Name Role Phone Cuba Solano MD Primary Care Provider +1 [phone] Encounter Details Date Type Department Care Team (Late st Contact Info) Description 02/02/2006 Outpatient Historical [facility] Family Medicine Angelica [place] [id number] [address] [address] Social History Tobacco Use Types Packs/Day Years Used Date Smoking Tobacco: Never Assessed Sex and Gender Information Value Date Recorded Sex Assigned at Not on file Legal Sex Male 2: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
--- OUTSIDE RECORDS SUMMARY | 2025-02-14 09:23 | XMS_ITS | Encounter Summary ---
Author Organization [facility] Address [address] [place] [address] Care Team Providers Care Pulmonary Physician Name Role Phone Cuba Solano MD Primary Care Provider +1 [phone] Encounter Details Date Type Department Care Team (Latest Contact Info) Description 01/12/2006 Outpatient Historical [facility] 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
--- OUTSIDE RECORDS SUMMARY | 2025-02-14 09:23 | XMS_ITS | Encounter Summary ---
Author Organization [facility] Address [address] [place] [address] Care Team Providers Care Furniture Lumber Production Worker Name Role Phone Cuba Solano MD Primary Care Provider +1 [phone] Encounter Details Date Type Department Care Team (Latest Contact Info) Description 05/04/2002 Outpatient Historical [facility] Family Medicine Angelica [address] [address] Donte Borrego MD NO ADDRESS ON FILE OTALGIA NOS (Primary Dx) Social History Tobacco Use Types Packs/Day Years Used Date Smoking Tobacco: Never Assessed Sex and Gender Information Value Date Recorded Sex Assigned at Not on file Legal Sex Male 2:49 AM ICT MANAGERS Gender Identity Not on file Sexual Orientation Not on file documented as of this encounter Plan of Treatment Not on file documented as of this encounter Visit Diagnoses Diagnosis Otalgia, unspecified- Primary documented in this encounter Care Teams Furniture Lumber Production Worker Relationship Specialty Start Date End Date Cuba Solano MD PCP - General 07/11/09 documented as of this encounter
--- OUTSIDE RECORDS SUMMARY | 2025-02-14 09:23 | XMS_ITS | Encounter Summary ---
Author Organization [facility] Address [address] [place] [address] Care Team Providers Care Professor Of Literature Name Role Phone Cuba Solano MD Primary Care Provider +1 -[phone] Encounter Details Date Type Department Care Team (Latest Contact Info) Description 12/10/2004 Outpatient Historical [facility] [place] [address] Ash Lopez III, MD [address] [place] [address] INT DERANGEMENT KNEE NOS (Primary Dx) Social History Tobacco Use Types Packs/Day Years Used Date Smoking Tobacco: Never Assessed Sex and Gender Information Value Date Recorded Sex Assigned at Not on file Legal Sex Male 2:49 AM ACCORDION REPAIRER Gender Identity Not on file Sexual Orientation Not on file documented as of this encounter Plan of Treatment Not on file documented as of this encounter Visit Diagnoses Diagnosis Unspecified internal derangement of knee- Primary documented in this encounter Care Teams Professor Of Literature Relationship Specialty Start Date End Date Cuba Solano MD PCP - General 07/11/09 documented as of this encounter
--- OUTSIDE RECORDS SUMMARY | 2025-02-14 09:23 | XMS_ITS | Encounter Summary ---
Author Organization [facility] Address [address] [place] [address] Care Team Providers Care Java Lead Name Role Phone Cuba Solano MD Primary Care Provider +1 -[phone] Encounter Details Date Type Department Care Team (Latest Contact Info) Description 03/16/2006 Outpatient Historical [facility] [address] [place] [address] Ash Lopez III, MD [address] [facility] [address] [place] [address] Other Affections of Shoulder Region, not Elsewhere Classified (Primary Dx); Primary Localized Osteoarthrosis, Shoulder Region Social History Tobacco Use Types Packs/Day Years Used Date Smoking Tobacco: Never Assessed Sex and Gender Information Value Date Recorded Sex Assigned at Not on file Legal Sex Male 2:49 AM NURSE ADVOCATE Gender Identity Not on file Sexual Orientation Not on file documented as of this encounter Plan of Treatment Not on file documented as of this encounter Visit Diagnoses Diagnosis Other affections of shoulder region, not elsewhere classified- Primary Primary localized osteoarthrosis, shoulder region documented in this encounter Care Teams Java Lead Relationship Specialty Start Date End Date Cuba Solano MD PCP - General 07/11/09 documented as of this encounter
--- OUTSIDE RECORDS SUMMARY | 2025-02-14 09:23 | XMS_ITS | Encounter Summary ---
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
--- OUTSIDE RECORDS SUMMARY | 2025-02-14 09:23 | XMS_ITS | Encounter Summary ---
Author Organization [facility] Address [address] Attn: [place] [address] Care Team Providers Care Sugar Chipper Machine Operator Name Role Phone Cuba Solano MD Primary Care Provider +1 [phone] Encounter Details Date Type Department Care Team (Late st Contact Info) Description 01/19/2002 Outpatient Historical Donte Borrego MD NO ADDRESS ON FILE Social History Tobacco Use Types Packs/Day Years Used Date Smoking Tobacco: Never Assessed Sex and Gender Information Value Date Recorded Sex Assigned at Not on file Legal Sex Male 2:49 AM SOCIAL INSURANCE SPECIALIST Gender Identity Not on file Sexual Orientation Not on file documented as of this encounter Plan of Treatment Not on file documented as of this encounter Visit Diagnoses Not on filedocumented in this encounter Care Teams Sugar Chipper Machine Operator Relationship Specialty Start Date End Date Cuba Solano MD PCP - General 07/11/09 documented as of this encounter
--- OUTSIDE RECORDS SUMMARY | 2025-02-14 09:23 | XMS_ITS | Encounter Summary ---
Author Organization [facility] Address [address] [place] [address] Care Team Providers Care Terrazzo Supervisor Name Role Phone Cuba Solano MD Primary Care Provider +1 [phone] Encounter Details Date Type Department Care Team (Latest Contact Info) Description 11/30/2001 Outpatient Historical [facility] Family Medicine Angelica [address] [address] Donte Borrego MD NO ADDRESS ON FILE ACUTE CONJUNCTIVITIS NOS (Primary Dx); HERPES ZOSTER NOS Social History Tobacco Use Types Packs/Day Years Used Date Smoking Tobacco: Never Assessed Sex and Gender Information Value Date Recorded Sex Assigned at Not on file Legal 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
--- OUTSIDE RECORDS SUMMARY | 2025-02-14 09:23 | XMS_ITS | Encounter Summary ---
Author Organization [facility] Address [address] [place] [address] Care Team Providers Care Licensed Audiologist Name Role Phone Cuba Solano MD Primary Care Provider +1 [phone] Encounter Details Date Type Department Care Team (Latest Contact Info) Description 02/01/2002 Outpatient Historical [facility] Family Medicine [place] 8[address]682 [address] [address] Donte Borrego MD NO ADDRESS ON FILE HYPERTENSION NOS (Primary Dx); LIPOMA NOS; DISEASES OF LIPS Social History Tobacco Use Types Packs/Day Years Used Date Smoking Tobacco: Never Assessed Sex and Gender Information Value Date Recorded Sex Assigned at Not on file Legal Sex Male 2:49 AM RIVET SPINNER Gender Identity Not on file Sexual Orientation Not on file documented as of this encounter Plan of Treatment Not on file documented as of this encounter Visit Diagnoses Diagnosis Unspecified essential hypertension- Primary Lipoma of unspecified site Diseases of lips documented in this encounter Care Teams Licensed Audiologist Relationship Specialty Start Date End Date Cuba Solano MD PCP - General 07/11/09 documented as of this encounter
--- OUTSIDE RECORDS SUMMARY | 2025-02-14 09:23 | XMS_ITS | Encounter Summary ---
Author Organization [facility] Address [address] [place] [address] Care Team Providers Care Water Resource Agent Name Role Phone Cuba Solano MD Primary Care Provider +1 -[phone] Encounter Details Date Type Department Care Team (Latest Contact Info) Description 10/04/2000 Outpatient Historical [facility] Family Medicine Angelica [address] [address] Donte Borrego MD NO ADDRESS ON FILE Other and unspecified hyperlipidemia (Primary Dx); Unspecified essential hypertension; Allergy, unspecified not elsewhere classified; Actinic keratosis Social History Tobacco Use Types Packs/Day Years Used Date Smoking Tobacco: Never Assessed Sex and Gender Information Value Date Recorded Sex Assigned at Not on file Legal Sex Male 2:49 AM JOURNALISTS AND OTHER WRITERS Gender Identity Not on file Sexual Orientation Not on file documented as of this encounter Plan of Treatment Not on file documented as of this encounter Visit Diagnoses Diagnosis Other and unspecified hyperlipidemia- Primary Unspecified essential hypertension Allergy, unspecified not elsewhere classified Actinic keratosis documented in this encounter Care Teams Water Resource Agent Relationship Specialty Start Date End Date Cuba Solano MD PCP - General 07/11/09 documented as of this encounter
--- OUTSIDE RECORDS SUMMARY | 2025-02-14 09:23 | XMS_ITS | Encounter Summary ---
Author Organization [facility] Address [address] [place] [address] Care Team Providers Care Cardiac Sonographer Name Role Phone Cuba Solano MD Primary Care Provider +1 -[phone] Encounter Details Date Type Department Care Team (Late st Contact Info) Description 09/06/2000 Outpatient Historical [place] [address] [place] [address] Encounter for long-term (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 of other medications (Primary Dx); Other convulsions Social History Tobacco Use Types Packs/Day Years Used Date Smoking Tobacco: Never Assessed Sex and Gender Information Value Date Recorded Sex Assigned at Not on file Legal Sex Male 2:49 AM MAJOR GIFTS OFFICER Gender Identity Not on file Sexual Orientation Not on file documented as of this encounter Plan of Treatment Not on file documented as of this encounter Visit Diagnoses Diagnosis Encounter for long-term (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 of other medications- Primary Other convulsions documented in this encounter Care Teams Cardiac Sonographer Relationship Specialty Start Date End Date Cuba Solano MD PCP - General 07/11/09 documented as of this encounter
--- OUTSIDE RECORDS SUMMARY | 2025-02-14 09:23 | XMS_ITS | Encounter Summary ---
Author Organization [facility] Address [address] [place] [address] Care Team Providers Care Guitar Technician Name Role Phone Cuba Solano MD Primary Care Provider +1 -[phone] Encounter Details Date Type Department Care Team (Latest Contact Info) Description 04/10/2002 Outpatient Historical [facility] Family Medicine Angelica [address] [address] Donte Borrego MD NO ADDRESS ON FILE HYPERLIPIDEMIA NEC/NOS (Primary Dx) Social History Tobacco Use Types Packs/Day Years Used Date Smoking Tobacco: Never Assessed Sex and Gender Information Value Date Recorded Sex Assigned at Not on file Legal Sex Male 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
--- OUTSIDE RECORDS SUMMARY | 2025-02-14 09:23 | XMS_ITS | Encounter Summary ---
Author Organization [facility] Address [address] [place] [address] Care Team Providers Care Network Operations Specialist Name Role Phone Cuba Solano MD Primary Care Provider +1 [phone] Encounter Details Date Type Department Care Team (Latest Contact Info) Description 04/07/2000 Outpatient Historical [facility] Family Medicine [place] 7[address] [address] Donte Borrego MD NO ADDRESS ON FILE Unspecified essential hypertension (Primary Dx); Unspecified suppurative otitis media; Nasal/sinus dis NEC Social History Tobacco Use Types Packs/Day Years Used Date Smoking Tobacco: Never Assessed Sex and Gender Information Value Date Recorded Sex Assigned at Not on file Legal Sex Male 2: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
--- OUTSIDE RECORDS SUMMARY | 2025-02-14 09:23 | XMS_ITS | Encounter Summary ---
Author Organization [facility] Address [address] [place] [address] Care Team Providers Care Frame Opener Name Role Phone Cuba Solano MD Primary Care Provider +1 -[phone] Encounter Details Date Type Department Care Team (Latest Contact Info) Description 11/01/2001 Outpatient Historical [facility] Family Medicine Angelica [address] [address] Donte Borrego MD NO ADDRESS ON FILE ACUTE SINUSITIS NOS (Primary Dx); ALLERGIC RHINITIS NEC; Benign hypertension Social History Tobacco Use Types Packs/Day Years Used Date Smoking Tobacco: Never Assessed Sex and Gender Information Value Date Recorded Sex Assigned at Not on file Legal Sex Male 2: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
--- OUTSIDE RECORDS SUMMARY | 2025-02-14 09:23 | XMS_ITS | Encounter Summary ---
Author Organization [facility] Address [address] [place] [address] Care Team Providers Care Steam Conditioner Filling Name Role Phone Cuba Solano MD Primary Care Provider +1 -[phone] Encounter Details Date Type Department Care Team (Latest Contact Info) Description 12/26/2004 Outpatient Historical [facility] Family Medicine [place]ica [facility] [address] [address] Huey Upton Jr., MD [address] [place] [address] [address] [place] [address] IMPETIGO (Primary Dx) Social History Tobacco Use Types Packs/Day Years Used Date Smoking Tobacco: Never Assessed Sex and Gender Information Value Date Recorded Sex Assigned at Not on file Legal Sex Male 2:49 AM INFORMATION ASSISTANT Gender Identity Not on file Sexual Orientation Not on file documented as of this encounter Plan of Treatment Not on file documented as of this encounter Visit Diagnoses Diagnosis Impetigo- Primary documented in this encounter Care Teams Steam Conditioner Filling Relationship Specialty Start Date End Date Cuba Solano MD PCP - General 07/11/09 documented as of this encounter
--- OUTSIDE RECORDS SUMMARY | 2025-02-14 09:23 | XMS_ITS | Encounter Summary ---
Author Organization [facility] Address [address] [place] [address] Care Team Providers Care Sales Applications Engineer Name Role Phone Cuba Solano MD Primary Care Provider +1 -[phone] Encounter Details Date Type Department Care Team (Latest Contact Info) Description 12/29/2005 Outpatient Historical [facility] [address] [facility] [address] [place] [address] Ash Lopez III, MD [address] [place] [address] Other Affections of Shoulder Region, not Elsewhere Classified (Primary Dx) Social History Tobacco Use Types Packs/Day Years Used Date Smoking Tobacco: Never Assessed Sex and Gender Information Value Date Recorded Sex Assigned at Not on file Legal Sex Male 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 Phone Number INTERFACE SYSTEM Refer to clinic/hospital [...] CARE TESTING Final Result Performing Organization Address [facility] Phone Number INTERFACE SYSTEM Refer to clinic/hospital department * (ABNORMAL) POC GLUCOSE (12/29/2005 7:05 AM CDT) GLUCOSE POC 133(H) 60 - 100 mg/dL INTERFACE SYSTEM 12/29/2005 7:05 AM CDT Ash Lopez III, MD POINT OF CARE TESTING Final Result Performing Organization Address [facility] Phone Number INTERFACE SYSTEM Refer to clinic/hospital department documented in this encounter Visit Diagnoses Diagnosis Other affections of shoulder region, not elsewhere classified- Primary documented in this encounter Care Teams Sales Applications Engineer Relationship Specialty Start Date End Date Cuba Solano MD PCP - General 07/11/09 documented as of this encounter
--- OUTSIDE RECORDS SUMMARY | 2025-02-14 09:23 | XMS_ITS | Encounter Summary ---
Author Organization [facility] Address [address] [place] [address] Care Team Providers Care Supplier Relationship Director Name Role Phone Cuba Solano MD Primary Care Provider [phone] [phone] Encounter Details Date Type Department Care Team (Latest Contact Info) Description 01/25/2002 Outpatient Historical [facility] Family Medicine [place] [id number] [address] [address] Donte Borrego MD NO ADDRESS ON FILE OTHER MALAISE AND FATIGUE (Primary Dx) Social History Tobacco Use Types Packs/Day Years Used Date Smoking Tobacco: Never Assessed Sex and Gender Information Value Date Recorded Sex Assigned at Not on file Legal Sex Male 2: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
--- OUTSIDE RECORDS SUMMARY | 2025-02-14 09:24 | XMS_ITS | Encounter Summary ---
Author Organization [facility] Address [address] [place] [address] Care Team Providers Care Master Yacht Name Role Phone Cuba Solano MD Primary Care Provider +1 [phone] Encounter Details Date Type Department Care Team (Latest Contact Info) Description 10/21/2005 Outpatient Historical [facility] Orthoped[facility] [place] [address] Ash Lopez III, MD [address] [place] [address] Unspecified Disorders of Bursae and [...] region documented in this encounter Care Teams Master Yacht Relationship Specialty Start Date End Date Cuba Solano MD PCP - General 07/11/09 documented as of this encounter
--- OUTSIDE RECORDS SUMMARY | 2025-02-14 09:24 | XMS_ITS | Encounter Summary ---
Author Organization [facility] Address [address] [place] [address] Care Team Providers Care Home Health Cna Name Role Phone Cuba Solano MD Primary Care Provider +1 [phone] Encounter Details Date Type Department Care Team (Latest Contact Info) Description 06/06/2003 Outpatient Historical [facility] Family Medicine [place] [id number] [address] [address] Keyona Mccloud, LUCIEN NO ADDRESS ON FILE ACUTE PHARYNGITIS (Primary Dx); ACUTE SINUSITIS NOS Social History Tobacco Use Types Packs/Day Years Used Date Smoking Tobacco: Never Assessed Sex and Gender Information Value Date Recorded Sex Assigned at Not on file Legal Sex Male 2:49 AM MASTER PILOT Gender Identity Not on file Sexual Orientation Not on file documented as of this encounter Plan of Treatment Not on file documented as of this encounter Visit Diagnoses Diagnosis Acute pharyngitis- Primary Acute sinusitis, unspecified documented in this encounter Care Teams Home Health Cna Relationship Specialty Start Date End Date Cuba Solano MD PCP - General 07/11/09 documented as of this encounter
--- OUTSIDE RECORDS SUMMARY | 2025-02-14 09:24 | XMS_ITS | Encounter Summary ---
Author Organization [facility] Address [address] [place] [address] Care Team Providers Care Cook Vegetable Name Role Phone Cuba Solano MD Primary Care Provider +1 [phone] Encounter Details Date Type Department Care Team (Latest Contact Info) Description 12/02/2005 Outpatient Historical [facility] Family Medicine Angelica [facility] [address] [address] Huey Upton Jr., MD [address] [place] [address] 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
--- OUTSIDE RECORDS SUMMARY | 2025-02-14 09:24 | XMS_ITS | Encounter Summary ---
Author Organization [facility] Address [address] [place] [address] Care Team Providers Care Orchestra Conductor Name Role Phone Cuba Solano MD Primary Care Provider +1 [phone] Encounter Details Date Type Department Care Team (Latest Contact Info) Description 06/28/2006 Outpatient Historical [facility] Family Medicine [place] 15[address]42 [address] [address] Keyona Mccloud, LUCIEN NO ADDRESS ON FILE Unspecified Otitis Media (Primary Dx); Acute Sinusitis, Unspecified Social History Tobacco Use Types Packs/Day Years Used Date Smoking Tobacco: Never Assessed Sex and Gender Information Value Date Recorded Sex Assigned at Not on file 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
--- OUTSIDE RECORDS SUMMARY | 2025-02-14 09:24 | XMS_ITS | Encounter Summary ---
Author Organization [facility] Address [address] [place] [address] Care Team Providers Care Music Professor Name Role Phone Cuba Solano MD Primary Care Provider +1 [phone] Encounter Details Date Type Department Care Team (Latest Contact Info) Description 11/07/2001 Outpatient [facility] Family Medicine [place] [address] [address] Keyona Mccloud, LUCIEN NO ADDRESS ON FILE HORDEOLUM EXTERNUM (Primary Dx); ALLERGY, UNSPECIFIED Social History Tobacco Use Types Packs/Day Years Used Date Smoking Tobacco: Never Assessed Sex and Gender Information Value Date Recorded Sex Assigned at Not on file 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
--- OUTSIDE RECORDS SUMMARY | 2025-02-14 09:24 | XMS_ITS | Patient Health Record ---
Author Organization [facility] Address [address] [place] [address] Care Team Providers Care Certified Coding Specialist Name Role Phone EDI SAMUELS Unavailable [phone] Kain Marroquin Unavailable [phone] Allergies Allergen (clinical drug ingredient) Drug/Non Drug [...] Notes/Report: Glucometer WBG 118 65-110 MG/DL Asymptomatic~Meter: [id number]~Exec. Creative Director: [id number] MARY BATES Testing performed at: [address] [place] [address] CLIA ID [id number] Glucometer WBG Reviewed date:01/03/2025 04:50:43 PM Interpretation: Performing Lab: Notes/Report: Glucometer WBG 128 65-110 MG/DL Asymptomatic~Meter: [id number]~Exec. Creative Director: [id number] EDI GAUDENCIO Testing performed at: [address] [place] [address] CLIA ID [id number] CBC w/ Auto Diff Reviewed date:01/02/2025 11:41:10 AM Interpretation: Performing Lab: Notes/Report: Diagnosis Description: Encounter for other preprocedural examination Testing performed at: [address] [place] [address] CLIA ID [id number] Diagnosis Description: Age-related physical debility Diagnosis Description: [...] 40.0-70.0 % Lymph Auto% 12.0 22.0-44.0 % Dawes Auto% 13.3 3.0-7.0 % Eos Auto% 4.6 2.0-4.0 % Baso Auto% 0.5 0.0-1.0 % Imm Gran% .7 .0-.4 % Neutro Abs 3.00 .80-7.70 Absolute Neutrophil Count 3000 Lymph Abs .52 .10-4.10 Dawes Abs .58 .20-1.00 Eos Abs .20 .00-.40 Baso Abs .02 .00-.20 Imm Gran Abs .03 .00-.10 NRBC# .00 .00-.20 NRBC% .00 .00-.20 /100 intact WBC's Reason For Referral No Information Medications Medication SIG (Take, Route, Frequency, Duration) Notes Start Date End Date Status Fluticasone Propionate 93 MCG/ACT 2 sprays (1 spray in each nostril) Nasally Twice a day Active HYDROcodone-Acetaminophen 5-325 MG 1 tablet as needed Orally every 6 hrs Active Insulin Aspart PenFill 100 UNIT/ML as directed Subcutaneous Active Tamsulosin HCl 0.4 MG 1 capsule Orally O nce a day 200mg oil Active ZyrTEC 10 MG 1 tablet Orally Once a day Active Dapagliflozin Pro-metFORMIN ER 10-500 MG 1 tablet Orally Once a day Active Brekingtri Aerosphere 160-9-4.8 MCG/ACT 2 puffs Inhalation Twice a day Active Insulin Cartridge 3ML Active Cholecalciferol 25 MCG (1000 UT) 1 capsule Orally Once a day Active Testosterone Cypionate 200 MG/ML 0.5 mL Injection Active Debrox 6.5 % 5 drops into affecte d ear Otic Twice a day Active prednisoLONE 5 MG 1 tablet in the morning with food or milk Orally Once a day Active Dulcolax 5 MG 1 tablet as needed Orally Once a day Active Docusate Sodium 100 MG 1 capsule as need ed Orally Once a day Active Eliquis 5 MG as directed Orally Active Esomeprazole Magnesium 40 MG 1 capsule 1/2 to 1 hour before morning meal Orally Once a day Active Simbrinza 1-0.2 % 1 drop into affected eye Ophthalmic Three times a day Active Tylenol 325 MG 1 tablet as needed Orally every 6 hrs Active Spironolactone 25 MG 1 tablet Orally Onc e a day Active Allopurinol 300 MG 1 tablet Orally Once a day Active Amiodarone HCl 200 MG 1 tablet Orally On ce a day Active Atorvastatin Calcium 20 MG 1 tablet Orally Once a day Active Latanoprost 0.005 % 1 drop into affected eye in the evening Ophthalmic Once a day Active Metoclopramide HCl 10 MG 1 tablet before meals Orally Twice a day Active Metoprolol Tartrate 100 MG 1 tablet with food Orally Twice a day Active Midodrine HCl 5 MG 1 tablet Orally Twic e a day Active Milk of Magnesia 400 MG/5ML 5 mL as needed Orally Once a day Active Montelukast Sodium 10 MG 1 tablet Orally Once a day Active Semaglutide 3 MG as directed Orally Active oxyBUTYnin Chloride ER 5 MG 1 tablet Orally Once a day; Duration: 30 days 01/17/2025 02/16/2025 Active Pregabalin 25 MG 1 capsule Orally Onc e a day Active Social History Tobacco Use: [...] W/U Status Risk Notes Problem Essential hypertension (42501000) Essential (primary) hypertension (I10) Active confirmed Problem Type II diabetes mellitus without complication (669596202) Type 2 diabetes mellitus without complication, unspecified whether custodial insulin use (E11.9) Active confirmed Problem Heart failure (29235895) Chronic congestive heart failure, unspecified heart failure type (I50.9) Active confirmed Problem COPD - Chronic obstructive pulmonary disease (65092064) Chronic obstructive pulmonary disease, unspecified COPD type (J44.9) Active confirmed Problem Postprocedural states (575740163) H/O transurethral destruction of bladder lesion (Z98.890) Active confirmed Problem Urgent desire to urinate (70578603) Urinary urgency (R39.15) Active confirmed Problem Advanced age (68252277) Advanced age (R54) Active confirmed Problem Urinary frequency (636161213) Urinary frequency (R35.0) Active confirmed Vital Signs Heart Rate 116 /min 01/22/2025 Blood pressure diastolic 78 mm Hg 01/22/2025 Height-cm 182.88 cm 01/22/2025 Weight-kg 159.67 kg 01/22/2025 Height 72 in 01/22/2025 Blood pressure systolic 125 mm Hg 01/22/2025 Weight 352 lbs 01/22/2025 BMI 47.73 kg/m2 01/22/2025 Procedures Procedure Date Ordered Date Performed Result Body Sit e Bladder Scan 01/22/2025 N/A Encounters Encounter Location Date Provider Diagnosis [facility] [address] [place] [address] 01/03/2025 EDI SAMUELS [facility] [address] [place] [address] 11/21/2024 Kain Marroquin Urinary frequency R3 5.0 ; Urinary urgency R39.15 and Weak urinary stream R39.12 [facility] [address] [place] [address] 12/27/2024 Kain Pevril Pre-op testing Z01.8 18 ; Urinary frequency R35.0 ; Urinary urgency R39.15 and Weak urinary stream R39.12 [facility], [facility] [address] [place] [address] 01/22/2025 EDI SAMUELS Urinary frequency R3 5.0 ; H/O transurethral destruction of bladder lesion Z98.890 ; Urinary urgency R39.15 and Weak urinary stream R39.12 [facility] [address] [place] [address] 11/02/2024 Kain Pevril [facility] [address] [place] [address] 11/22/2024 Kain Pevril [facility] [address] [facility] [address] [place] [address] 12/25/2024 Kain Pevril [employer] [employer], [facility] [address] [place] [address] 12/26/2024 EDI SAMUELS Pre-op testing Z01.8 18 ; Advanced age R54 ; Pre-procedure lab exam Z01.812 ; Preop cardiovascular exam Z01.810 ; Essential (primary) hypertension I10 ; Type 2 diabetes mellitus without complication, unspecified whether termite exterminator insulin use E11.9 ; Chronic congestive heart failure, unspecified heart failure type I50.9 and Chronic obstructive pulmonary disease, unspecified COPD type J44.9 DO NOT USE THIS FACILITY [employer], [facility] [address] [facility] [address] [place] [id number] 01/17/2025 EDI SAMUELS Assessments Encounter Date Diagnosis (ICD Code) Assessment [...] at our clinic. I recommended that his MD facility can try, but if unsuccessful, they [...] is performed and was discussed along with risks/benefits/al ternatives and postprocedural expectations. Case discussed and reviewed [...] at our clinic. I recommended that his MD facility can try, but if unsuccessful, they [...] is performed and was discussed along with risks/benefits/al ternatives and postprocedural expectations. Case discussed and reviewed [...] Urinary frequency (ICD-10 - R35.0) We again discussed the concept of maximal medical management [...] in need of presurgical labs, however, the regional owner operator truck driver is unable to take patient to [...] is performed and was discussed along with risks/benefits/al ternatives and postprocedural expectations. Case discussed and reviewed with Dr. Samuels. Patient elects to do so. RTC post op. Further recommendations postoperative. For now, and through shared decision making we are in agreement with this. Patient has no other voiced concerns or questions, and patient satisfied with plan. 12/27/2024 Pre-op testing (ICD-10 - Z01.818) We again discussed the concept of maximal medical management [...] in need of presurgical labs, however, the regional owner operator truck driver is unable to take patient to [...] is performed and was discussed along with risks/benefits/al ternatives and postprocedural expectations. Case discussed and reviewed with Dr. Samuels. Patient elects to do so. RTC post op. Further recommendations postoperative. For now, and through shared decision making we are in agreement with this. Patient has no other voiced concerns or questions, and patient satisfied with plan. 01/22/2025 H/O transurethral destruction of bladder lesion (ICD-10 - Z98.890) This is a 59-year-old male with urinary retention and frequency presenting for follow-up after bladder biopsy which showed inflammation without malignancy. Patient has significant comorbidities including hepatosplenomegal y, generalized edema, and recent pneumonia that are complicating his urinary symptoms. N30.90 - Cystitis, unspecified without hematuria R33.9 - Retention of urine, unspecified Q54.9 - Hypospadias, unspecified R60.9 - Edema, unspecified J18.9 - Pneumonia, unspecified organism K76.9 - Liver disease, unspecified R16.2 - Hepatomegaly with splenomegaly, not elsewhere classified Z48.815 - Encounter for surgical aftercare following surgery on the genitourinary system 01/22/2025 Urinary frequency (ICD-10 - R35.0) This is a 59-year-old male with urinary retention and frequency presenting for follow-up after bladder biopsy which showed inflammation without malignancy. Patient has significant comorbidities including hepatosplenomegal y, generalized edema, and recent pneumonia that are complicating his urinary symptoms. N30.90 - Cystitis, unspecified without hematuria R33.9 - Retention of urine, unspecified Q54.9 - Hypospadias, unspecified R60.9 - Edema, unspecified J18.9 - Pneumonia, unspecified organism K76.9 - Liver disease, unspecified R16.2 - Hepatomegaly with splenomegaly, not elsewhere classified Z48.815 - Encounter for surgical aftercare following surgery on the genitourinary system 01/22/2025 Urinary urgency (ICD-10 - R39.15) This is a 59-year-old male with urinary retention and frequency presenting for follow-up after bladder biopsy which showed inflammation without malignancy. Patient has significant comorbidities including hepatosplenomegal y, generalized edema, and recent pneumonia that are complicating his urinary symptoms. N30.90 - Cystitis, unspecified without hematuria R33.9 - Retention of urine, unspecified Q54.9 - Hypospadias, unspecified R60.9 - Edema, unspecified J18.9 - Pneumonia, unspecified organism K76.9 - Liver disease, unspecified R16.2 - Hepatomegaly with splenomegaly, not elsewhere classified Z48.815 - Encounter for surgical aftercare following surgery on the genitourinary system 11/21/2024 Weak urinary stream (ICD-10 - R39.12) [...] at our clinic. I recommended that his MD facility can try, but if unsuccessful, they [...] is performed and was discussed along with risks/benefits/al ternatives and postprocedural expectations. Case discussed and reviewed [...] Urinary urgency (ICD-10 - R39.15) We again discussed the concept of maximal medical management [...] in need of presurgical labs, however, the regional owner operator truck driver is unable to take patient to [...] is performed and was discussed along with risks/benefits/al ternatives and postprocedural expectations. Case discussed and reviewed [...] urinary stream (ICD-10 - R39.12) We again discussed the concept of maximal medical management [...] in need of presurgical labs, however, the regional owner operator truck driver is unable to take patient to [...] is performed and was discussed along with risks/benefits/al ternatives and postprocedural expectations. Case discussed and reviewed with Dr. Samuels. Patient elects to do so. RTC post op. Further recommendations postoperative. For now, and through shared decision making we are in agreement with this. Patient has no other voiced concerns or questions, and patient satisfied with plan. 01/22/2025 Weak urinary stream (ICD-10 - R39.12) This is a 59-year-old male with urinary retention and frequency presenting for follow-up after bladder biopsy which showed inflammation without malignancy. Patient has significant comorbidities including hepatosplenomegal y, generalized edema, and recent pneumonia that are complicating his urinary symptoms. N30.90 - Cystitis, unspecified without hematuria R33.9 - Retention of urine, unspecified Q54.9 - Hypospadias, unspecified R60.9 - Edema, unspecified J18.9 - Pneumonia, unspecified organism K76.9 - Liver disease, unspecified R16.2 - Hepatomegaly with splenomegaly, not elsewhere classified Z48.815 - Encounter for surgical aftercare following surgery on the genitourinary system 12/26/2024 Preop cardiovascular exam (ICD-10 - Z01.810) 12/26/2024 Essential (primary) hypertension (ICD-10 - I10) 12/26/2024 Type 2 diabetes mellitus without complication, unspecified whether custodial insulin use (ICD-10 - E11.9) 12/26/2024 Chronic congestive heart failure, unspecified heart failure type (ICD-10 - I50.9) 12/26/2024 Chronic obstructive pulmonary disease, unspecified COPD type (ICD-10 - J44.9) 01/22/2025 Other # Urinary Retention/Frequen cy Order placed for indwelling Pereira catheter (18 Slovenian) to be inserted at [facility]. Catheter to be changed monthly. Discussed benefits of chronic catheter use for quality of life improvement versus risks of UTI and potential urethral erosion, especially given patient's hypospadias. Will coordinate with [facility] staff regarding catheter management. # Bladder Biopsy Follow-up Pathology results reviewed with patient - benign findings showing inflammation without malignancy. No further follow-up needed for this specific issue. # Fluid Retention/Hepatos plenomegaly Discussed coordination of care with primary team regarding planned paracentesis and liver/spleen biopsy. Suggested possibility of catheter placement during hospitalization if fdc unable to place. # Follow-up Return to clinic in 5 months for catheter management evaluation. Sooner if complications arise with catheter or urinary symptoms worsen. Today we discussed your bladder biopsy results from January 03. The good news is that there is no cancer. The biopsy showed only inflammation in your bladder. We talked about your trouble with urination and agreed that an indwelling catheter (tube in your bladder) would help you. This will drain urine continuously so you don't have to worry about getting to the bathroom quickly or having accidents. The fdc staff will place the catheter. They will need to change it once a month. Watch for signs of infection like fever, pain, or cloudy, smelly urine. The catheter has some risks including infections and possible damage to your urethra (the tube urine comes out of), especially since your urethra opening is positioned lower than usual. However, these risks are manageable and the benefits of improved quality of life are significant. If the fdc has trouble placing the catheter, we may try to coordinate placement during your upcoming hospital visit for the procedure to remove fluid and check your liver. Please return to see me in 5 months to check how you're doing with the catheter. Call sooner if you have problems. This is a 59-year-old male with urinary retention and frequency presenting for follow-up after bladder biopsy which showed inflammation without malignancy. Patient has significant comorbidities including hepatosplenomegal y, generalized edema, and recent pneumonia that are complicating his urinary symptoms. N30.90 - Cystitis, unspecified without hematuria R33.9 - Retention of urine, unspecified Q54.9 - Hypospadias, unspecified R60.9 - Edema, unspecified J18.9 - Pneumonia, unspecified organism K76.9 - Liver disease, unspecified R16.2 - Hepatomegaly with splenomegaly, not elsewhere classified Z48.815 - Encounter for surgical aftercare following surgery on the genitourinary system Plan Of Treatment Pending Test Test Name Order Date Urinalysis, Routine 12/27/2024 Bladder Scan 01/22/2025 Basic Metabolic Panel 12/26/2024 Electrocardiogram, 12 Lead Tracing-[id number] 12/26/2024 Chest PA/Lat--[id number] 12/26/2024 Next Appt Details Provider Name:Kain Marroquin, 06/25/2025 02:00:00 PM, [address] [place], [address], Insurance Providers Payer Name Payer Address Payer Phone Subscriber Number Group Number Insured Name Patient Relationship to Insured Coverage Start Date Coverage End Date [place] [address] [address] [place], [place] [id number] Marciano Alonso Self - patient is the insured [place] [address] [place], [place] [id number] Marciano Alonso Self - patient is the insured Medical (General) History Medical History History ICD Code COPD Sleep apnea Hypertension CHF Type 2 Diabetes GERD glaucoma Surgical History Surgery Date(Month/Year) left leg 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
--- OUTSIDE RECORDS SUMMARY | 2025-02-14 09:24 | XMS_ITS | Encounter Summary ---
Author Organization [facility] Address [address] [place] [address] Care Team Providers Care Passenger Car Upholsterer Apprentice Name Role Phone Cuba Solano MD Primary Care Provider +1 [phone] Encounter Details Date Type Department Care Team (Latest Contact Info) Description 11/14/2001 Outpatient Historical [facility] Family Medicine [place] [id number] [address] [address] Keyona Mccloud, LUCIEN NO ADDRESS ON FILE HORDEOLUM EXTERNUM (Primary Dx); ACUTE URI NOS Social History Tobacco Use Types Packs/Day Years Used Date Smoking Tobacco: Never Assessed Sex and Gender Information Value Date Recorded Sex Assigned at Not on file 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
--- OUTSIDE RECORDS SUMMARY | 2025-02-14 09:24 | XMS_ITS | Encounter Summary ---
Author Organization [facility] Address [address] [place] [address] Care Team Providers Care Aerial Photogrammetrist Name Role Phone Cuba Solano MD Primary Care Provider +1 [phone] Encounter Details Date Type Department Care Team (Latest Contact Info) Description 08/22/2001 Outpatient Historical [facility] Family Medicine [place] [id number] [address] [address] Donte Borrego MD NO ADDRESS ON FILE HYPERTENSION NOS (Primary Dx); TACHYCARDIA NOS Social History Tobacco Use Types Packs/Day Years Used Date Smoking Tobacco: Never Assessed Sex and Gender Information Value Date Recorded Sex Assigned at Not on file 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
--- OUTSIDE RECORDS SUMMARY | 2025-02-14 09:24 | XMS_ITS | Encounter Summary ---
Author Organization [facility] Address [address] [place] [address] Care Team Providers Care Salon Receptionist Name Role Phone Cuba Solano MD Primary Care Provider +1 [phone] Encounter Details Date Type Department Care Team (Latest Contact Info) Description 08/28/2005 Outpatient Historical [facility] Family Medicine [facility] [address] [address] Huey Upton Jr., MD [address] [place] [address] 248 [facility] [address] [place] [address] Pain in Joint, Shoulder Region (Primary Dx); Lumbago Social History Tobacco Use Types Packs/Day Years Used Date Smoking Tobacco: Never Assessed Sex and Gender Information Value Date Recorded Sex Assigned at Not on file 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
--- OUTSIDE RECORDS SUMMARY | 2025-02-14 09:24 | XMS_ITS | Encounter Summary ---
Author Organization [facility] Address [address] [place] [address] Care Team Providers Care Political Theory Professor Name Role Phone Cuba Solano MD Primary Care Provider +1 [phone] Encounter Details Date Type Department Care Team (Latest Contact Info) Description 07/02/2003 Outpatient Historical [facility] Family Medicine [place] 580902 [address] [address] Keyona Mccloud, EDUCATIONAL CONSULTANT NO ADDRESS ON FILE ALLERGY, UNSPECIFIED (Primary Dx) Social History Tobacco Use Types Packs/Day Years Used Date Smoking Tobacco: Never Assessed Sex and Gender Information Value Date Recorded Sex Assigned at Not on file 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
--- OUTSIDE RECORDS SUMMARY | 2025-02-14 09:24 | XMS_ITS | Encounter Summary ---
Author Organization [facility] Address [address] [place] [address] Care Team Providers Care Armoring Machine Operator Name Role Phone Cuba Solano MD Primary Care Provider [phone] [phone] Encounter Details Date Type Department Care Team (Latest Contact Info) Description 11/18/2001 Outpatient Historical [facility] Family Medicine [place] [address] [address] Donte Borrego MD NO ADDRESS ON FILE CONJUNCTIVITIS NOS (Primary Dx) Social History Tobacco Use Types Packs/Day Years Used Date Smoking Tobacco: Never Assessed Sex and Gender Information Value Date Recorded Sex Assigned at Not on file 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
--- OUTSIDE RECORDS SUMMARY | 2025-02-14 09:24 | XMS_ITS | Encounter Summary ---
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
--- OUTSIDE RECORDS SUMMARY | 2025-02-14 09:24 | XMS_ITS | Encounter Summary ---
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
--- OUTSIDE RECORDS SUMMARY | 2025-02-14 09:24 | XMS_ITS | Encounter Summary ---
Author Organization [facility] Address [address] [place] [address] Care Team Providers Care Sales Account Leader Name Role Phone Cuba Solano MD Primary Care Provider [phone] [phone] Encounter Details Date Type Department Care Team (Latest Contact Info) Description 10/03/2001 Outpatient Historical [facility] Family Medicine [place] 701362 [address] [address] Donte Borrego MD NO ADDRESS ON FILE HYPERTENSION NOS (Primary Dx); ALLERGY, UNSPECIFIED; AMPUT ABOVE KNEE, UNILAT; OSTEOARTHROS NOS-UNSPEC Social History Tobacco Use Types Packs/Day Years Used Date Smoking Tobacco: Never Assessed Sex and Gender Information Value Date Recorded Sex Assigned at Not on file 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
--- OUTSIDE RECORDS SUMMARY | 2025-02-14 09:24 | XMS_ITS | Encounter Summary ---
Author Organization [facility] Address [address] [place] [address] Care Team Providers Care Electric Meter Installer Helper Name Role Phone Cuba Solano MD Primary Care Provider +1 [phone] Encounter Details Date Type Department Care Team (Latest Contact Info) Description 09/14/2001 Outpatient Historical [facility] Family Medicine [place] [address] [address] Donte Borrego MD NO ADDRESS ON FILE UNSPECIFIED VIRAL INFECTION (Primary Dx); ALLERGY, UNSPECIFIED; HYPERTENSION NOS; TACHYCARDIA NOS Social History Tobacco Use Types Packs/Day Years Used Date Smoking Tobacco: Never Assessed Sex and Gender Information Value Date Recorded Sex Assigned at Not on file 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
--- OUTSIDE RECORDS SUMMARY | 2025-02-14 09:24 | XMS_ITS | Encounter Summary ---
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
--- OUTSIDE RECORDS SUMMARY | 2025-02-14 09:24 | XMS_ITS | Encounter Summary ---
Author Organization [facility] Address [address] [place] [address] Care Team Providers Care Coil Tester Name Role Phone Cuba Solano MD Primary Care Provider +1 [phone] Encounter Details Date Type Department Care Team (Latest Contact Info) Description 07/05/2006 [facility] 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
--- OUTSIDE RECORDS SUMMARY | 2025-02-14 09:24 | XMS_ITS | Continuity of Care Document ---
Author Organization [place] - Aravind Moncada [facility], Chas, [facility]) Address [address] [place] [address] Assessment No assessment recorded. Plan of Treatment Reminders Order Date Submit Date Provider Last Modified By Organization Details Last Modified Time Details Appointments None record ed. Lab None record ed. Referral None record ed. Procedures None record ed. Surgeries None record ed. Imaging None record ed. Medication Orders None record ed. Patient TargetsNo targets recorded. Patient Instructions Encounter Date Encounter Id Patient Instructions Last Modified By Organization Details Last Modified Time 02/08/2025 [id number] Planning to paracentesis today. Extremely abdominal swelling. Sugars too high, increase aspart to 60 units with meals. Planning to follow up next week. [email or web address] Not available 02/08/2025 14:32:28 Reason for Referral None Reported. Results Created Date Observation Date Name Description Value Unit Range Abnormal Flag Note LastModifiedBy Organization Detail LastModifiedTime 02/09/20 25 02/08/2025 imagi ng/di agnos tic resul t No observ ation record ed. [email or web address] [facility] [address] [place], [address], 02/12/2025 11:57:54 Result Notes None recorded. Problems Name Problem SNOMED Code Status Onset Date Resolution Date Notes Provider Name and Address Organization Details Recorded Time Essential hypertens ion 87319902 Active 2007 ESSENTIAL HYPERTENS ION; 8 2:16PM by Karla Joseph LPN, Office Visit; Promoted; acuity set as *; Not Available [facility] 3 03:17:47 Allergic rhinitis 73206779 Active 2007 ALLERGIC RHINITIS; 8 2:16PM by Karla Joseph LPN, Office Visit; Promoted; acuity set as *; Not Available [facility] 3 03:17:47 Persisten t insomnia 912570080 Active 2007 PERSISTEN T INSOMNIA; 8 2:16PM by Karla Joseph LPN, Office Visit; Promoted; acuity set as *; Not Available [facility] 3 03:17:52 Fracture of ankle 63204473 Active 2007 Ankle Fracture; 8 2:16PM by Karla Joseph LPN, Office Visit; Promoted; acuity set as *; Not Available [facility] 3 03:17:53 Peptic ulcer 38584098 Active 2007 PEPTIC ULCER; 8 2:16PM by Karla Joseph LPN, Office Visit; Promoted; acuity set as *; Not Available [facility] 3 03:17:53 Type 1 diabetes mellitus 77014679 Active 2007 DIABETES MELLITUS TYPE I; 8 2:16PM by Karla Joseph LPN, Office Visit; Promoted; acuity set as *; Not Available [facility] 3 03:17:58 Constipat ion 11709767 Active 2007 CONSTIPAT ION; 8 2:16PM by Karla Joesph LPN, Office Visit; Promoted; acuity set as *; Not Available [facility] 3 03:17:58 Amputated above knee 322836069 Active 2007 ABOVE KNEE AMPUTATIO N STATUS; 8 2:16PM by Karla Joseph LPN, Office Visit; Promoted; acuity set as *; Not Available [facility] 3 03:17:59 History of depressio n 278817825 Active 2007 DEPRESSIO N, NOS; 8 2:16PM by Karla Joseph LPN, Office Visit; Promoted; acuity set as *; Not Available [facility] 3 03:18:00 Hyperglyc emia due to type 2 diabetes mellitus 23112074498 9109 Active 2023 RASHEED [facility] 4 13:09:52 Chronic back pain greater than three months duration 58203893982 2 [facility] 4 15:23:19 Blepharit is of right eyelid 61482054573 9103 Active 2024 [facility] 5 15:11:18 Congestiv e heart failure 01107276 Active 2024 [facility] 5 16:21:48 Acute right otitis media 605933180 Active 2024 [facility] 5 16:28:04 Pain of right shoulder joint 90210266197 075495 Active 2024 NATHANAEL VICTORIA [facility] 5 17:59:42 Hepatospl enomegaly 47022160 Active 2024 NATHANAEL VICTORIA [facility] 5 14:35:12 Thrombocy topenic disorder 196742176 Active 2024 NATHANAEL VICTORIA [facility] 5 14:35:13 Problem Notes None recorded. Medical Equipment None Reported. Allergies Allergen ID Allergen Name Allergen Category Reaction Reaction Severity Criticality Documentation Date Start Date Code Code System Note Provider Name and Address Organization Details Recorded Time 93119 Product containin g penicilli n (product) medicatio n Not available Not available Not available 11/28/2022 14191 8001 SNOMED Comme nt: Recor ded 09/01 2:16P M by Briseida Joseph, NASH, Offic e Visit ; Promo joanne; Signi [place] ce: *; ; Not Available [facility] 3 02:25:17 Medications Name Sig Start Date Stop Date Status Note LastModified by Organization Details LastModified Time Prescripti on - Renewal active Oxycodone Not Available Not Available No t Available Prescripti on - Prior Authorizat ion Request active Not Available Not Available Not Available Refresh Tears 0.5 % eye drops four times daily 2007 active Recorded 8 8:15AM by Steven Greenberg MD, Office Visit; Refill Quantity: 0; Not Available Not Available Not Available salsalate 500 mg tablet bid 2007 active Recorded 8 2:54PM by Karla Joseph LPN, Office Visit; Refill Quantity: 0; Not Available Not Available Not Available Colace 100 mg capsule qhd active 0; Recorded 8 2:23PM by Karla Joseph LPN, Office Visit; Not Available Not Available Not Available hydrocodon e 5 mg-acetami nophen 325 mg tablet Take 1 tablet twice a day by oral route as needed for 30 days. active Not Available Not Available No t Available Milk of Magnesia 400 mg/5 mL oral suspension qd prn constipat ion active 0; Recorded 8 2:23PM by Karla Joseph LPN, Office Visit; Not Available Not Available Not Available moxifloxac in 400 mg tablet TAKE 1 TABLET BY MOUTH DAILY active Not Available Not Available No t Available Zyrtec 10 mg tablet daily 2007 active Recorded 8 2:43PM by Jory George CMT, Historica l Summary; Refill Quantity: 0; Not Available Not Available Not Available carbamazep ine 200 mg tablet two times daily 2007 active Recorded 8 2:43PM by Jory George CMT, Historica l Summary; Refill Quantity: 0; Not Available Not Available Not Available gemfibrozi l 600 mg tablet bid active 0; Recorded 8 2:23PM by Karla Joseph LPN, Office Visit; Not Available Not Available Not Available lisinopril 10 mg tablet QD 2007 active Recorded 8 2:54PM by Karla Joseph LPN, Office Visit; Refill Quantity: 30; Tab; Not Available Not Available Not Available omeprazole 20 mg capsule,de layed release qd active 0; Recorded 8 2:23PM by Karla Joseph LPN, Office Visit; Not Available Not Available Not Available Avapro 150 mg tablet qd active 0; Recorded 8 2:23PM by Karla Joseph LPN, Office Visit; Not Available Not Available Not Available Tylenol 325 mg tablet as needed 2007 active Recorded 8 2:43PM by Jory George CMT, Historica l Summary; Refill Quantity: 0; Not Available Not Available Not Available montelukas t 10 mg tablet qd active Not Available Not Available Not Available hydrochlor othiazide 25 mg tablet qd active 0; Recorded 8 2:23PM by Karla Joseph LPN, Office Visit; Not Available Not Available Not Available fluticason e propionate 50 mcg/actuat ion nasal spray,susp ension QD active Not Available Not Available Not Available metoclopra mide 10 mg tablet tid active Not Available Not Available Not Available TobraDex 0.3 %-0.1 % eye drops,susp ension 2007 active Wednesday, Wednesday and Wednesday; Recorded 8 8:15AM by Steven Greenberg MD, Office Visit; Refill Quantity: 0; Not Available Not Available Not Available Senna S 8.6 mg-50 mg tablet daily 2007 active Recorded 8 2:43PM by Jory George CMT, Historica l Summary; Refill Quantity: 0; Not Available Not Available Not Available Zyrtec 10 mg chewable tablet qd active 0; Recorded 8 2:23PM by Karla Joseph LPN, Office Visit; Not Available Not Available Not Available pregabalin 50 mg capsule Take 1 capsule 3 times a day by oral route for 30 days. active Not Available Not Available No t Available carbamazep ine bid active 0; Recorded 8 2:23PM by Karla Joseph LPN, Office Visit; Not Available Not Available Not Available senna hs active 0; Recorded 8 2:23PM by Karla Joseph LPN, Office Visit; Not Available Not Available Not Available amitriptyl ine bid 2007 active Recorded 8 7:20AM by LUCIEN Zheng, Office Visit; Refill Quantity: 0; Not Available Not Available Not Available Prinivil qd active 0; Recorded 8 2:23PM by Karla Joseph LPN, Office Visit; Not Available Not Available Not Available atenolol bid active 0; Recorded 8 2:23PM by Karla Joseph LPN, Office Visit; Not Available Not Available Not Available nortriptyl ine qhs active 0; Recorded 8 2:23PM by Karla Joseph LPN, Office Visit; Not Available Not Available Not Available fiber bid active 0; Recorded 8 2:23PM by Karla Joseph LPN, Office Visit; Not Available Not Available Not Available metformin bid active 0; Recorded 8 2:23PM by Karla Joseph LPN, Office Visit; Not Available Not Available Not Available Oxycodone W/Acetamin ophen q 3 hrs prn for pain active 0; Recorded 8 2:23PM by Karla Joseph LPN, Office Visit; Not Available Not Available Not Available Vitals Date Recorded Body weight Heart rate Respiratory rate Body temperature Oxygen saturation Oxygen saturation in Arterial blood by Pulse oximetry Systolic And Diastolic Provider Name and Address Organization Details Last Updated DateTime 5 190294. 58 g 74 /min 20 /min 98 [degF] 96 % 96 % 143/72 mm[Hg] NATHANAEL VICTORIA [facility], [facility] 5 14:30:11 Social History None recorded. Functional Status None recorded. Mental Status None recorded. Family History Nothing Reported. Medical History No medical history recorded. Immunizations Vaccine Type Date Status Note Provider Nam e and Address Organization Details Recorded Time influenza, unspecified formulation 8 completed Not Available [facility] 02/12/2025 13:42:26 Influenza, split virus, trivalent, preservative 0 completed Not Available [facility] 02/12/2025 13:42:26 COVID-19, mRNA, LNP-S, PF, 100 mcg/0.5mL dose or 50 mcg/0.25mL dose 1 completed Not Available [facility] 02/12/2025 13:42:26 COVID-19, mRNA, LNP-S, PF, 100 mcg/0.5mL dose or 50 mcg/0.25mL dose 1 completed Not Available [facility] 02/12/2025 13:42:26 Influenza, split virus, quadrivalent, PF 1 completed Not Available [facility] 02/12/2025 13:42:26 COVID-19, mRNA, LNP-S, PF, 100 mcg/0.5mL dose or 50 mcg/0.25mL dose 1 completed Not Available [facility] 02/12/2025 13:42:26 Influenza, split virus, quadrivalent, PF 2 completed Not Available [facility] 02/12/2025 13:42:26 Influenza, split virus, quadrivalent, PF 3 completed Not Available [facility] 02/12/2025 13:42:26 Influenza, split virus, trivalent, preservative 4 completed Not Available [facility] 02/12/2025 13:42:26 Past Encounters Encounter ID Performer Location Encounter Start Date Encounter Closed Date Diagnosis/Indication Diagnosis SNOMED-CT Code Diagnosis ICD10 Code Diagnosis IMO Codes Diagnosis Note [id number] Chris Parker DO [facility]) [address] [place] [address] 01/11/2025 12:12:21 01/16/2025 10:56:12 Hyperglycemia due to type 2 diabetes mellitus 0757724390 80114 E11.65 Z79.4 [id number] Chris Parker DO [facility] ([facility]) [address] [place] [address] 5 01/15/2025 12:18:30 01/17/2025 08:49:31 Type 1 diabetes mellitus 21683851 E10.9 Hepatosplenomegaly 87582 000 R16.2 39149 Pneumonia 928840162 J18. 9 [id number] Chris Parker DO [facility]) [address] [place] [address] 5 01/18/2025 09:41:48 01/23/2025 16:25:08 [id number] Chris Parker DO [facility] ([facility]) [address] [place] [address] 01/22/2025 15:25:32 01/24/2025 09:26:09 Congestive heart failure 92136849 I50.9 Type 1 brad betes mellitus 93412396 E10.9 Hepatosplenomegaly 54746 000 R16.2 71333 [id number] Chris Parker DO [facility] ([facility]) [address] [place] [address] 02/05/2025 14:15:56 02/06/2025 16:50:40 Hepatosplenomegaly 59247836 R16.2 42773 Ascites 529333298 R18.8 [id number] Pancytopenia 042093165 D 61.818 [id number] Chris Parker DO [facility] ([facility]) [address] [place] [address] 5 02/08/2025 13:43:34 02/13/2025 12:53:21 Hyperglycemia due to type 2 diabetes mellitus 4578667020 38387 E11.65 Z79.4 Hepatosplenomegaly 89086 000 R16.2 61862 Health Concerns Section Related Observation LastModified by Organization Detai ls LastModified Time None Recorded Concern Status LastModified by Organization Details LastModified Time None Recorded Payers Encounter Date Sequence Insurance Name Policy Number Policy Pate Covered Member ID Pate Member ID Guarantor Name 02/08/2025 1 [place] Marciano Alonso [id number] Marciano Alonso 02/08/2025 2 [place] Marciano Alonso [id number] Marciano Alonso Notes Date Note Type Note Provider Name and Address Organization Details Recorded Time 02/08/2025 text/html COPDReported by PatientHPI:For associated symptoms, patient reportsobesity. For onset/timing, patient reportsmultiple times per day. For duration, patient reportshas noted for years.ROS as noted in the HPI Planning to go for paracentesis. Chris Parker DO [address] [place] [address], [address], [facility] 02/11/2025 17:17:58
--- OUTSIDE RECORDS SUMMARY | 2025-02-14 09:24 | XMS_ITS | Encounter Summary ---
Author Organization [facility] Address [address] [place] [address] Care Team Providers Care Rehabilitation Therapist Name Role Phone Cuba Solano MD Primary Care Provider [phone] [phone] Encounter Details Date Type Department Care Team (Latest Contact Info) Description 07/17/2003 Outpatient Historical [facility] Family Medicine [place] [address] [address] Donte Borrego MD NO ADDRESS ON FILE DERMATITIS NOS (Primary Dx); ALLERGY, UNSPECIFIED Social History Tobacco Use Types Packs/Day Years Used Date Smoking Tobacco: Never Assessed Sex and Gender Information Value Date Recorded Sex Assigned at Not on file Legal 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
--- OUTSIDE RECORDS SUMMARY | 2025-02-14 09:24 | XMS_ITS | Encounter Summary ---
Author Organization [facility] Address [address] [place] [address] Care Team Providers Care Senior Statistician Name Role Phone Cuba Solano MD Primary Care Provider [phone] [phone] Encounter Details Date Type Department Care Team (Latest Contact Info) Description 06/18/2006 Outpatient Historical [facility] Cardiovascular Services [address] [place] [address] Keyona Mccloud, LUCIEN NO ADDRESS ON FILE Supraventricular Premature Beats (Primary Dx) Social History Tobacco Use Types Packs/Day Years Used Date Smoking Tobacco: Never Assessed Sex and Gender Information Value Date Recorded Sex Assigned at Not on file 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
--- OUTSIDE RECORDS SUMMARY | 2025-02-14 09:24 | XMS_ITS | Encounter Summary ---
Author Organization [facility] Address [address] [place] [address] Care Team Providers Care Boring Mill Set Up Operator Name Role Phone Cuba Solano MD Primary Care Provider [phone] [phone] Encounter Details Date Type Department Care Team (Latest Contact Info) Description 08/29/2001 Outpatient Historical [facility] Family Medicine [place] [id number] [address] Donte Borrego MD NO ADDRESS ON FILE Benign hypertension (Primary Dx); TACHYCARDIA NOS Social History Tobacco Use Types Packs/Day Years Used Date Smoking Tobacco: Never Assessed Sex and Gender Information Value Date Recorded Sex Assigned at Not on file 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
--- OUTSIDE RECORDS SUMMARY | 2025-02-14 09:25 | XMS_ITS | Encounter Summary ---
Author Organization [facility] Address [address] [place] [address] Care Team Providers Care Manager Spanish Name Role Phone Cuba Solano MD Primary Care Provider [phone] [phone] Encounter Details Date Type Department Care Team (Latest Contact Info) Description 05/25/2006 Outpatient Historical [facility] Orthopedics- [address] [place] [address] Ash Lopez III, MD [address] [place] [address] Pain in Joint, Shoulder Region (Primary Dx) Social History Tobacco Use Types Packs/Day Years Used Date Smoking Tobacco: Never Assessed Sex and Gender Information Value Date Recorded Sex Assigned at Not on file Legal Sex Male 2:49 AM CURTAIN STITCHER Gender Identity Not on file Sexual Orientation Not on file documented as of this encounter Plan of Treatment Not on file documented as of this encounter Visit Diagnoses Diagnosis Pain in joint, shoulder region- Primary documented in this encounter Care Teams Manager Spanish Relationship Specialty Start Date End Date Cuba Solano MD PCP - General 07/11/09 documented as of this encounter
--- OUTSIDE RECORDS SUMMARY | 2025-02-14 09:25 | XMS_ITS | Encounter Summary ---
Author Organization [facility] Address [address] [place] [address] Care Team Providers Care Exposure Machine Operator Name Role Phone Cuba Solano MD Primary Care Provider [phone] [phone] Encounter Details Date Type Department Care Team (Latest Contact Info) Description 03/05/2004 Outpatient Historical [facility] Family Medicine [place] [address] [address] Donte Borrego MD NO ADDRESS ON FILE DIABETES MELLITUS TYPE II UNCONTR UNCOMPL (Primary Dx); ACUTE URI NOS Social History Tobacco Use Types Packs/Day Years Used Date Smoking Tobacco: Never Assessed Sex and Gender Information Value Date Recorded Sex Assigned at Not on file Legal Sex Male 2:49 AM CIVIL ENGINEERING INTERN Gender Identity Not on file Sexual Orientation Not on file documented as of this encounter Plan of Treatment Not on file documented as of this encounter Visit Diagnoses Diagnosis Type II or unspecified type diabetes mellitus 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, uncontrolled- Primary Acute upper respiratory infections of unspecified site documented in this encounter Care Teams Exposure Machine Operator Relationship Specialty Start Date End Date Cuba Solano MD PCP - General 07/11/09 documented as of this encounter
--- OUTSIDE RECORDS SUMMARY | 2025-02-14 09:25 | XMS_ITS | Encounter Summary ---
Author Organization [facility] Address [address] [place] [address] Care Team Providers Care Dry Can Tender Name Role Phone Cuba Solano MD Primary Care Provider [phone] [phone] Encounter Details Date Type Department Care Team (Latest Contact Info) Description 08/03/2002 Outpatient Historical [facility] Family Medicine [place] [address] [address] Donte Borrego MD NO ADDRESS ON FILE OTHER MALAISE AND FATIGUE (Primary Dx) Social History Tobacco Use Types Packs/Day Years Used Date Smoking Tobacco: Never Assessed Sex and Gender Information Value Date Recorded Sex Assigned at Not on file Legal Sex Male 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
--- OUTSIDE RECORDS SUMMARY | 2025-02-14 09:25 | XMS_ITS | Encounter Summary ---
Author Organization [facility] Address [address] [place] [address] Care Team Providers Care Porcelain Turner Name Role Phone Cuba Solano MD Primary Care Provider +1 [phone] Encounter Details Date Type Department Care Team (Latest Contact Info) Description 05/17/2003 Outpatient Historical [facility] Family Medicine [place] [id number] [address] Keyona Mccloud, LUCIEN NO ADDRESS ON FILE HYPERLIPIDEMIA NEC/NOS (Primary Dx); VITAMIN B DEFICIENCY NOS; AFTERCARE SENIOR CARE SPECIALIST USE MEDICATN Social History Tobacco Use Types Packs/Day Years Used Date Smoking Tobacco: Never Assessed Sex and Gender Information Value Date Recorded Sex Assigned at Not on file Legal Sex Male 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
--- OUTSIDE RECORDS SUMMARY | 2025-02-14 09:25 | XMS_ITS | Encounter Summary ---
Author Organization [facility] Address [address] [place] [address] Care Team Providers Care Physiognomist Name Role Phone Cuba Solano MD Primary Care Provider [phone] [phone] Encounter Details Date Type Department Care Team (Latest Contact Info) Description 10/23/2003 Outpatient Historical [facility] Family Medicine [place] [address] [address] Donte Borrego MD NO ADDRESS ON FILE TOBACCO USE DISORDER (Primary Dx); ALLERGY, UNSPECIFIED Social History Tobacco Use Types Packs/Day Years Used Date Smoking Tobacco: Never Assessed Sex and Gender Information Value Date Recorded Sex Assigned at Not on file Legal Sex Male 2:49 AM TRAIN STATION SERVER Gender Identity Not on file Sexual Orientation Not on file documented as of this encounter Plan of Treatment Not on file documented as of this encounter Visit Diagnoses Diagnosis Tobacco use disorder- Primary Allergy, unspecified not elsewhere classified documented in this encounter Care Teams Physiognomist Relationship Specialty Start Date End Date Cuba Solano MD PCP - General 07/11/09 documented as of this encounter
--- OUTSIDE RECORDS SUMMARY | 2025-02-14 09:25 | XMS_ITS | Encounter Summary ---
Author Organization [facility] Address [address] [place] [address] Care Team Providers Care Events Manager Name Role Phone Cuba Solano MD Primary Care Provider +1 [phone] Encounter Details Date Type Department Care Team (Latest Contact Info) Description 01/10/[address] [facility] Family Medicine [place] [address] [address] Donte Borrego MD NO ADDRESS ON FILE Pain in limb (Primary Dx); JOINT PAIN-ANKLE Social History Tobacco Use Types Packs/Day Years Used Date Smoking Tobacco: Never Assessed Sex and Gender Information Value Date Recorded Sex Assigned at Not on file Legal Sex Male 2:49 AM FUEL OPERATOR Gender Identity Not on file Sexual Orientation Not on file documented as of this encounter Plan of Treatment Not on file documented as of this encounter Visit Diagnoses Diagnosis Pain in limb- Primary Pain in soft tissues of limb Pain in joint, ankle and foot documented in this encounter Care Teams Events Manager Relationship Specialty Start Date End Date Cuba Solano MD PCP - General 07/11/09 documented as of this encounter
--- OUTSIDE RECORDS SUMMARY | 2025-02-14 09:25 | XMS_ITS | Encounter Summary ---
Author Organization [facility] Address [address] [place] [address] Care Team Providers Care Heavy Equipment Plumbing Supervisor Name Role Phone Cuba Solano MD Primary Care Provider +1 [phone] Encounter Details Date Type Department Care Team (Latest Contact Info) Description 10/30/2002 Outpatient Historical [facility] Family Medicine [place] [address] [address] Donte Borrego MD NO ADDRESS ON FILE HYPERLIPIDEMIA NEC/NOS (Primary Dx); HYPERTENSION NOS; ALLERGY, UNSPECIFIED Social History Tobacco Use Types Packs/Day Years Used Date Smoking Tobacco: Never Assessed Sex and Gender Information Value Date Recorded Sex Assigned at Not on file Legal Sex Male 2:49 AM INSURANCE ACCOUNT SPECIALIST Gender Identity Not on file Sexual Orientation Not on file documented as of this encounter Plan of Treatment Not on file documented as of this encounter Visit Diagnoses Diagnosis Other and unspecified hyperlipidemia- Primary Unspecified essential hypertension Allergy, unspecified not elsewhere classified documented in this encounter Care Teams Heavy Equipment Plumbing Supervisor Relationship Specialty Start Date End Date Cuba Solano MD PCP - General 07/11/09 documented as of this encounter
--- OUTSIDE RECORDS SUMMARY | 2025-02-14 09:25 | XMS_ITS | Encounter Summary ---
Author Organization [facility] Address [address] [place] [address] Care Team Providers Care Bean Sprout Grower Name Role Phone Cuba Solano MD Primary Care Provider +1 [phone] Encounter Details Date Type Department Care Team (Latest Contact Info) Description 10/16/2003 Outpatient Historical [facility]- [place] [address] [place] [address] Sandro Haines MD [address] [facility] [address] [place] [address] MELENA, BLOOD IN STOOL (Primary Dx) Social History Tobacco Use Types Packs/Day Years Used Date Smoking Tobacco: Never Assessed Sex and Gender Information Value Date Recorded Sex Assigned at Not on file Legal Sex Male 2:49 AM CLINICAL REVIEW NURSE Gender Identity Not on file Sexual Orientation Not on file documented as of this encounter Plan of Treatment Not on file documented as of this encounter Visit Diagnoses Diagnosis Blood in stool- Primary documented in this encounter Care Teams Bean Sprout Grower Relationship Specialty Start Date End Date Cuba Solano MD PCP - General 07/11/09 documented as of this encounter
--- OUTSIDE RECORDS SUMMARY | 2025-02-14 09:25 | XMS_ITS | Encounter Summary ---
Author Organization [facility] Address [address] [place] [address] Care Team Providers Care Horticultural Specialty Grower Field Name Role Phone Cuba Solano MD Primary Care Provider +1 [phone] Encounter Details Date Type Department Care Team (Latest Contact Info) Description 06/09/2006 Outpatient Historical [facility] Orthopedics- [address] [place] [address] Ash Lopez III, MD [address] [facility] [address] [place] [address] Adhesive Capsulit Shlder (Primary Dx) Social History Tobacco Use Types Packs/Day Years Used Date Smoking Tobacco: Never Assessed Sex and Gender Information Value Date Recorded Sex Assigned at Not on file Legal Sex Male 2:49 AM AUDITING CONTROL CLERK Gender Identity Not on file Sexual Orientation Not on file documented as of this encounter Plan of Treatment Not on file documented as of this encounter Visit Diagnoses Diagnosis Adhesive capsulit shlder- Primary Adhesive capsulitis of shoulder documented in this encounter Care Teams Horticultural Specialty Grower Field Relationship Specialty Start Date End Date Cuba Solano MD PCP - General 07/11/09 documented as of this encounter
--- OUTSIDE RECORDS SUMMARY | 2025-02-14 09:25 | XMS_ITS | Encounter Summary ---
Author Organization [facility] Address [address] [place] [address] Care Team Providers Care Psychiatric Specialist Name Role Phone Cuba Solano MD Primary Care Provider +1 [phone] Encounter Details Date Type Department Care Team (Latest Contact Info) Description 03/14/2004 Outpatient Historical [facility] [address] [place] [address] Kvng Kilpatrick MD NO ADDRESS ON FILE HYPERSOMNI W SLEEP APNEA (Primary Dx) Social History Tobacco Use Types Packs/Day Years Used Date Smoking Tobacco: Never Assessed Sex and Gender Information Value Date Recorded Sex Assigned at Not on file Legal Sex Male 2:49 AM LANDSCAPE MANAGER Gender Identity Not on file Sexual Orientation Not on file documented as of this encounter Plan of Treatment Not on file documented as of this encounter Visit Diagnoses Diagnosis Hypersomnia with sleep apnea, unspecified- Primary documented in this encounter Care Teams Psychiatric Specialist Relationship Specialty Start Date End Date Cuba Solano MD PCP - General 07/11/09 documented as of this encounter
--- OUTSIDE RECORDS SUMMARY | 2025-02-14 09:25 | XMS_ITS | Encounter Summary ---
Author Organization [facility] Address [address] [place] [address] Care Team Providers Care Mash Filter Press Operator Name Role Phone Cuba Solano MD Primary Care Provider +1 [phone] Encounter Details Date Type Department Care Team (Latest Contact Info) Description 01/03/2003 Outpatient Historical [facility] Family Medicine [place] [address] [address] Donte Borrego MD NO ADDRESS ON FILE ACUTE PHARYNGITIS (Primary Dx); ACUTE URI NOS Social History Tobacco Use Types Packs/Day Years Used Date Smoking Tobacco: Never Assessed Sex and Gender Information Value Date Recorded Sex Assigned at Not on file Legal Sex Male 2:49 AM WATER SYSTEMS ENGINEER Gender Identity Not on file Sexual Orientation Not on file documented as of this encounter Plan of Treatment Not on file documented as of this encounter Visit Diagnoses Diagnosis Acute pharyngitis- Primary Acute upper respiratory infections of unspecified site documented in this encounter Care Teams Mash Filter Press Operator Relationship Specialty Start Date End Date Cuba Solano MD PCP - General 07/11/09 documented as of this encounter
--- OUTSIDE RECORDS SUMMARY | 2025-02-14 09:25 | XMS_ITS | Encounter Summary ---
Author Organization [facility] Address [address] [place] [address] Care Team Providers Care Interactive Marketing Strategist Name Role Phone Cuba Solano MD Primary Care Provider +1 [phone] Encounter Details Date Type Department Care Team (Latest Contact Info) Description 03/05/2003 Outpatient Historical [facility] Family Medicine [place] [address] [address] Keyona Mccloud, LUCIEN NO ADDRESS ON FILE OTHER MALAISE AND FATIGUE (Primary Dx) Social History Tobacco Use Types Packs/Day Years Used Date Smoking Tobacco: Never Assessed Sex and Gender Information Value Date Recorded Sex Assigned at Not on file Legal Sex Male 2:49 AM PROFESSIONAL SERVICES SPECIALIST Gender Identity Not on file Sexual Orientation Not on file documented as of this encounter Plan of Treatment Not on file documented as of this encounter Visit Diagnoses Diagnosis Other malaise and fatigue- Primary documented in this encounter Care Teams Interactive Marketing Strategist Relationship Specialty Start Date End Date Cuba Solano MD PCP - General 07/11/09 documented as of this encounter
--- OUTSIDE RECORDS SUMMARY | 2025-02-14 09:25 | XMS_ITS | Encounter Summary ---
Author Organization [facility] Address [address] [place] [address] Care Team Providers Care Branch Service Representative Name Role Phone Cuba Solano MD Primary Care Provider +1 [phone] Encounter Details Date Type Department Care Team (Latest Contact Info) Description 04/04/2003 Outpatient Historical [facility] Family Medicine [place] [address] [address] Keyona Mccloud, LUCIEN NO ADDRESS ON FILE OTHER MALAISE AND FATIGUE (Primary Dx) Social History Tobacco Use Types Packs/Day Years Used Date Smoking Tobacco: Never Assessed Sex and Gender Information Value Date Recorded Sex Assigned at Not on file Legal Sex Male 2:49 AM BIG DATA ENGINEER Gender Identity Not on file Sexual Orientation Not on file documented as of this encounter Plan of Treatment Not on file documented as of this encounter Visit Diagnoses Diagnosis Other malaise and fatigue- Primary documented in this encounter Care Teams Branch Service Representative Relationship Specialty Start Date End Date Cuba Solano MD PCP - General 07/11/09 documented as of this encounter
--- OUTSIDE RECORDS SUMMARY | 2025-02-14 09:25 | XMS_ITS | Encounter Summary ---
Author Organization [facility] Address [address] [place] [address] Care Team Providers Care Scada Operator Name Role Phone Cuba Solano MD Primary Care Provider +1 [phone] Encounter Details Date Type Department Care Team (Latest Contact Info) Description 04/12/2006 Outpatient Historical [facility] Family Medicine [place] [facility] [address] [address] Huey Upton Jr., MD [address] [place] [address] [address] [facility] [address] [place] [address] Dysphagia (Primary Dx); Unspecified Essential Hypertension Social History Tobacco Use Types Packs/Day Years Used Date Smoking Tobacco: Never Assessed Sex and Gender Information Value Date Recorded Sex Assigned at Not on file Legal Sex Male 2:49 AM 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
--- OUTSIDE RECORDS SUMMARY | 2025-02-14 09:25 | XMS_ITS | Encounter Summary ---
Author Organization [facility] Address [address] [place] [address] Care Team Providers Care Nurse'S Assistant Name Role Phone Cuba Solano MD Primary Care Provider +1 [phone] Encounter Details Date Type Department Care Team (Latest Contact Info) Description 02/15/2004 Outpatient Historical [facility] Family Medicine [place] [address] [address] Keyona Mccloud, LUCIEN NO ADDRESS ON FILE Vaccine for influenza (Primary Dx); ABN BLOOD CHEMISTRY NEC; URINARY FREQUENCY Social History Tobacco Use Types Packs/Day Years Used Date Smoking Tobacco: Never Assessed Sex and Gender Information Value Date Recorded Sex Assigned at Not on file Legal Sex Male 2:49 AM CHAR FILTER TANK TENDER Gender Identity Not on file Sexual Orientation Not on file documented as of this encounter Plan of Treatment Not on file documented as of this encounter Visit Diagnoses Diagnosis Vaccine for influenza- Primary Need for prophylactic vaccination and inoculation against influenza Other abnormal blood chemistry Urinary frequency documented in this encounter Care Teams Nurse'S Assistant Relationship Specialty Start Date End Date Cuba Solano MD PCP - General 07/11/09 documented as of this encounter
--- OUTSIDE RECORDS SUMMARY | 2025-02-14 09:25 | XMS_ITS | Encounter Summary ---
Author Organization [facility] Address [address] [place] [address] Care Team Providers Care Direct Marketing Specialist Name Role Phone Cuba Solano MD Primary Care Provider +1 [phone] Encounter Details Date Type Department Care Team (Latest Contact Info) Description 08/09/[address] [facility] Family Medicine [place] [address] [address] Donte Borrego MD NO ADDRESS ON FILE Benign hypertension (Primary Dx); ALLERGY, UNSPECIFIED Social History Tobacco Use Types Packs/Day Years Used Date Smoking Tobacco: Never Assessed Sex and Gender Information Value Date Recorded Sex Assigned at Not on file Legal Sex Male 2: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 AVIATION Gender Identity Not on file Sexual Orientation Not on file documented as of this encounter Plan of Treatment Not on file documented as of this encounter Visit Diagnoses Diagnosis Benign hypertension- Primary Essential hypertension, benign Allergy, unspecified not elsewhere classified documented in this encounter Care Teams Direct Marketing Specialist Relationship Specialty Start Date End Date Cuba Solano MD PCP - General 07/11/09 documented as of this encounter
--- OUTSIDE RECORDS SUMMARY | 2025-02-14 09:25 | XMS_ITS | Encounter Summary ---
Author Organization [facility] Address [address] [place] [address] Care Team Providers Care Environmental Services Technician Name Role Phone Cuba Solano MD Primary Care Provider +1 [phone] Encounter Details Date Type Department Care Team (Latest Contact Info) Description 03/29/2006 Outpatient Historical [facility] Family Medicine [place] [address] [address] Keyona Mccloud, LUCIEN NO ADDRESS ON FILE Unspecified Essential Hypertension (Primary Dx) Social History Tobacco Use Types Packs/Day Years Used Date Smoking Tobacco: Never Assessed Sex and Gender Information Value Date Recorded Sex Assigned at Not on file Legal Sex Male 2:49 AM CARBON PLANT 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
--- OUTSIDE RECORDS SUMMARY | 2025-02-14 09:25 | XMS_ITS | Encounter Summary ---
Author Organization [facility] Address [address] [place] [address] Care Team Providers Care Patient Safety Manager Name Role Phone Cuba Solano MD Primary Care Provider +1 [phone] Encounter Details Date Type Department Care Team (Latest Contact Info) Description 12/04/2003 Outpatient Historical [facility] Family Medicine [place] [address] [address] Donte Borrego MD NO ADDRESS ON FILE URIN TRACT INFECTION NOS (Primary Dx) Social History Tobacco Use Types Packs/Day Years Used Date Smoking Tobacco: Never Assessed Sex and Gender Information Value Date Recorded Sex Assigned at Not on file Legal Sex Male 2:49 AM OVEN PRESS TENDER Gender Identity Not on file Sexual Orientation Not on file documented as of this encounter Plan of Treatment Not on file documented as of this encounter Visit Diagnoses Diagnosis Urinary tract infection, site not specified- Primary documented in this encounter Care Teams Patient Safety Manager Relationship Specialty Start Date End Date Cuba Solano MD PCP - General 07/11/09 documented as of this encounter
--- OUTSIDE RECORDS SUMMARY | 2025-02-14 09:25 | XMS_ITS | Encounter Summary ---
Author Organization [facility] Address [address] [place] [address] Care Team Providers Care Material Requirements Planning Manager Name Role Phone Cuba Solano MD Primary Care Provider +1 -[phone] Encounter Details Date Type Department Care Team (Latest Contact Info) Description 05/30/2002 Outpatient Historical [facility] Family Medicine [place] [address] [address] Donte Borrego MD NO ADDRESS ON FILE ANEMIA NOS (Primary Dx) Social History Tobacco Use Types Packs/Day Years Used Date Smoking Tobacco: Never Assessed Sex and Gender Information Value Date Recorded Sex Assigned at Not on file Legal Sex Male 2:49 AM NATIONAL PARK TOUR GUIDE Gender Identity Not on file Sexual Orientation Not on file documented as of this encounter Plan of Treatment Not on file documented as of this encounter Visit Diagnoses Diagnosis Anemia, unspecified- Primary documented in this encounter Care Teams Material Requirements Planning Manager Relationship Specialty Start Date End Date Cuba Solano MD PCP - General 07/11/09 documented as of this encounter
--- OUTSIDE RECORDS SUMMARY | 2025-02-14 09:25 | XMS_ITS | Encounter Summary ---
Author Organization [facility] Address [address] [place] [address] Care Team Providers Care [address] Light Servicer Supervisor Name Role Phone Cuba Solano MD Primary Care Provider +1 -[phone] Encounter Details Date Type Department Care Team (Latest Contact Info) Description 11/12/2003 Outpatient Historical [facility] Family Medicine [place] [id number] [address] Donte Borrego MD NO ADDRESS ON FILE URIN TRACT INFECTION NOS (Primary Dx) Social History Tobacco Use Types Packs/Day Years Used Date Smoking Tobacco: Never Assessed Sex and Gender Information Value Date Recorded Sex Assigned at Not on file Legal Sex Male 2:49 AM BUFFING WHEEL PRESSER Gender Identity Not on file Sexual Orientation Not on file documented as of this encounter Plan of Treatment Not on file documented as of this encounter Visit Diagnoses Diagnosis Urinary tract infection, site not specified- Primary documented in this encounter Care Teams Street Light Servicer Supervisor Relationship Specialty Start Date End Date Cuba Solano MD PCP - General 07/11/09 documented as of this encounter
--- OUTSIDE RECORDS SUMMARY | 2025-02-14 09:25 | XMS_ITS | Encounter Summary ---
Author Organization [facility] Address [address] [place] [address] Care Team Providers Care Well Logging Captain Name Role Phone Cuba Solano MD Primary Care Provider +1 -[phone] Encounter Details Date Type Department Care Team (Latest Contact Info) Description 11/02/2003 Outpatient Historical [facility] Family Medicine [place] [address] [address] Donte Borrego MD NO ADDRESS ON FILE ANEMIA NOS (Primary Dx) Social History Tobacco Use Types Packs/Day Years Used Date Smoking Tobacco: Never Assessed Sex and Gender Information Value Date Recorded Sex Assigned at Not on file Legal Sex Male 2:49 AM CARE NAVIGATOR Gender Identity Not on file Sexual Orientation Not on file documented as of this encounter Plan of Treatment Not on file documented as of this encounter Visit Diagnoses Diagnosis Anemia, unspecified- Primary documented in this encounter Care Teams Well Logging Captain Relationship Specialty Start Date End Date Cuba Solano MD PCP - General 07/11/09 documented as of this encounter
--- OUTSIDE RECORDS SUMMARY | 2025-02-14 09:25 | XMS_ITS | Encounter Summary ---
Author Organization [facility] Address [address] [place] [address] Care Team Providers Care Plastics Tooling Engineer Name Role Phone Cuba Solano MD Primary Care Provider +1 -[phone] Encounter Details Date Type Department Care Team (Latest Contact Info) Description 11/02/2003 Outpatient Historical [facility] Family Medicine [place] [address] [address] Donte Borrego MD NO ADDRESS ON FILE HYPERTENSION NOS (Primary Dx) Social History Tobacco Use Types Packs/Day Years Used Date Smoking Tobacco: Never Assessed Sex and Gender Information Value Date Recorded Sex Assigned at Not on file Legal Sex Male 2:49 AM RAILWAY 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
--- OUTSIDE RECORDS SUMMARY | 2025-02-14 09:25 | XMS_ITS | Encounter Summary ---
Author Organization [facility] Address [address] [place] [address] Care Team Providers Care Automobile Brakes Bonder Name Role Phone Cuba Solano MD Primary Care Provider +1 -[phone] Encounter Details Date Type Department Care Team (Latest Contact Info) Description 10/02/2002 Outpatient Historical [facility] Family Medicine [place] [address] [address] Donte Borrego MD NO ADDRESS ON FILE ANEMIA NOS (Primary Dx) Social History Tobacco Use Types Packs/Day Years Used Date Smoking Tobacco: Never Assessed Sex and Gender Information Value Date Recorded Sex Assigned at Not on file Legal Sex Male 2:49 AM SENIOR COMPLIANCE ANALYST Gender Identity Not on file Sexual Orientation Not on file documented as of this encounter Plan of Treatment Not on file documented as of this encounter Visit Diagnoses Diagnosis Anemia, unspecified- Primary documented in this encounter Care Teams Automobile Brakes Bonder Relationship Specialty Start Date End Date Cuba Solano MD PCP - General 07/11/09 documented as of this encounter
--- OUTSIDE RECORDS SUMMARY | 2025-02-14 09:25 | XMS_ITS | Encounter Summary ---
Author Organization [facility] Address [address] [place] [address] Care Team Providers Care Military Logistics Specialist Name Role Phone Cuba Solano MD Primary Care Provider +1 -[phone] Encounter Details Date Type Department Care Team (Latest Contact Info) Description 07/03/2002 Outpatient Historical [facility] Family Medicine [place] [address] [address] Donte Borrego MD NO ADDRESS ON FILE OTHER MALAISE AND FATIGUE (Primary Dx) Social History Tobacco Use Types Packs/Day Years Used Date Smoking Tobacco: Never Assessed Sex and Gender Information Value Date Recorded Sex Assigned at Not on file Legal Sex Male 2:49 AM INSTRUCTIONAL SPECIALIST Gender Identity Not on file Sexual Orientation Not on file documented as of this encounter Plan of Treatment Not on file documented as of this encounter Visit Diagnoses Diagnosis Other malaise and fatigue- Primary documented in this encounter Care Teams Military Logistics Specialist Relationship Specialty Start Date End Date Cuba Solano MD PCP - General 07/11/09 documented as of this encounter
--- OUTSIDE RECORDS SUMMARY | 2025-02-14 09:25 | XMS_ITS | Encounter Summary ---
Author Organization [facility] Address [address] [place] [address] Care Team Providers Care Mechanical Handyman Name Role Phone Cuba Solano MD Primary Care Provider +1 -[phone] Encounter Details Date Type Department Care Team (Latest Contact Info) Description 05/17/2003 Outpatient Historical [facility] Family Medicine [place] [address]892 [address] [address] Keyona Mccloud, LUCIEN NO ADDRESS ON FILE AFTERCARE SENIOR CARE USE MEDICATN (Primary Dx) Social History Tobacco Use Types Packs/Day Years Used Date Smoking Tobacco: Never Assessed Sex and Gender Information Value Date Recorded Sex Assigned at Not on file Legal Sex Male 2: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
--- OUTSIDE RECORDS SUMMARY | 2025-02-14 09:25 | XMS_ITS | Encounter Summary ---
Author Organization [facility] Address [address] [place] [address] Care Team Providers Care Manager Of Software Name Role Phone Cuba Solano MD Primary Care Provider +1 [phone] Encounter Details Date Type Department Care Team (Latest Contact Info) Description 05/04/2002 Outpatient Historical [facility] Family Medicine [place] [address] [address] Donte Borrego MD NO ADDRESS ON FILE Benign hypertension (Primary Dx); OTALGIA NOS; INFEC OTITIS EXTERNA NOS Social History Tobacco Use Types Packs/Day Years Used Date Smoking Tobacco: Never Assessed Sex and Gender Information Value Date Recorded Sex Assigned at Not on file Legal Sex Male 2:49 AM TEST DESK SUPERVISOR Gender Identity Not on file Sexual Orientation Not on file documented as of this encounter Plan of Treatment Not on file documented as of this encounter Visit Diagnoses Diagnosis Benign hypertension- Primary Essential hypertension, benign Otalgia, unspecified Infective otitis externa, unspecified documented in this encounter Care Teams Manager Of Software Relationship Specialty Start Date End Date Cuba Solano MD PCP - General 07/11/09 documented as of this encounter
--- OUTSIDE RECORDS SUMMARY | 2025-02-14 09:25 | XMS_ITS | Encounter Summary ---
Author Organization [facility] Address [address] [place] [address] Care Team Providers Care Shop Fitter Name Role Phone Cuba Solano MD Primary Care Provider +1 [phone] Encounter Details Date Type Department Care Team (Latest Contact Info) Description 11/01/2002 Outpatient Historical [facility] Family Medicine [place] 110642 [address] [address] Donte Borrego MD NO ADDRESS ON FILE OTHER MALAISE AND FATIGUE (Primary Dx) Social History Tobacco Use Types Packs/Day Years Used Date Smoking Tobacco: Never Assessed Sex and Gender Information Value Date Recorded Sex Assigned at Not on file Legal Sex Male 2:49 AM MORTGAGE PROTECTION SALES Gender Identity Not on file Sexual Orientation Not on file documented as of this encounter Plan of Treatment Not on file documented as of this encounter Visit Diagnoses Diagnosis Other malaise and fatigue- Primary documented in this encounter Care Teams Shop Fitter Relationship Specialty Start Date End Date Cuba Solano MD PCP - General 07/11/09 documented as of this encounter
--- OUTSIDE RECORDS SUMMARY | 2025-02-14 09:25 | XMS_ITS | Encounter Summary ---
Author Organization [facility] Address [address] [place] [address] Care Team Providers Care Carriage Operator Name Role Phone Cuba Solano MD Primary Care Provider +1 [phone] Encounter Details Date Type Department Care Team (Latest Contact Info) Description 06/17/2006 Outpatient [facility] Family Medicine Angel[place] [address] [address] Keyona Mccloud, LUCIEN NO ADDRESS ON FILE Unspecified Otitis Media (Primary Dx); Unspecified Tachycardia; Palpitations Social History Tobacco Use Types Packs/Day Years Used Date Smoking Tobacco: Never Assessed Sex and Gender Information Value Date Recorded Sex Assigned at Not on file Legal Sex Male 2:49 AM CUSTOMER CONTACT SALES ASSOCIATE Gender Identity Not on file Sexual Orientation Not on file documented as of this encounter Plan of Treatment Not on file documented as of this encounter Visit Diagnoses Diagnosis Unspecified otitis media- Primary Tachycardia, unspecified Palpitations documented in this encounter Care Teams Carriage Operator Relationship Specialty Start Date End Date Cuba Solano MD PCP - General 07/11/09 documented as of this encounter
--- OUTSIDE RECORDS SUMMARY | 2025-02-14 09:25 | XMS_ITS | Encounter Summary ---
Author Organization [facility] Address [address] [place] [address] Care Team Providers Care Material Cutter Name Role Phone Cuba Solano MD Primary Care Provider +1 [phone] Encounter Details Date Type Department Care Team (Latest Contact Info) Description 04/05/2006 [facility] [address] [place] [address] Huey Upton Jr., MD [address] [place] [address] [address] [place] [address] DM w/o Complication Type II (CMS/HCC) (Primary Dx) Social History Tobacco Use Types Packs/Day Years Used Date Smoking Tobacco: Never Assessed Sex and Gender Information Value Date Recorded Sex Assigned at Not on file Legal Sex Male 2:49 AM GYRO MECHANIC Gender Identity Not on file Sexual Orientation Not on file documented as of this encounter Plan of Treatment Not on file documented as of this encounter Visit Diagnoses Diagnosis Type II or unspecified type diabetes mellitus 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, not stated as uncontrolled- Primary documented in this encounter Care Teams Material Cutter Relationship Specialty Start Date End Date Cuba Solano MD PCP - General 07/11/09 documented as of this encounter
--- OUTSIDE RECORDS SUMMARY | 2025-02-14 09:25 | XMS_ITS | Encounter Summary ---
Author Organization [facility] Address [address] [place] [address] Care Team Providers Care Rerecording Mixer Name Role Phone Cuba Solano MD Primary Care Provider +1 [phone] Encounter Details Date Type Department Care Team (Latest Contact Info) Description 02/01/2003 Outpatient Historical [facility] Family Medicine Angelica [facility] [address] [address] Huey Upton Jr., MD [address] [place] [address] 248 [facility] [address] [place] [address] Benign hypertension (Primary Dx); ALLERGY, UNSPECIFIED Social History Tobacco Use Types Packs/Day Years Used Date Smoking Tobacco: Never Assessed Sex and Gender Information Value Date Recorded Sex Assigned at Not on file Legal Sex Male 2:49 AM STRAPPER AND BUFFER Gender Identity Not on file Sexual Orientation Not on file documented as of this encounter Plan of Treatment Not on file documented as of this encounter Visit Diagnoses Diagnosis Benign hypertension- Primary Essential hypertension, benign Allergy, unspecified not elsewhere classified documented in this encounter Care Teams Rerecording Mixer Relationship Specialty Start Date End Date Cuba Solano MD PCP - General 07/11/09 documented as of this encounter
--- OUTSIDE RECORDS SUMMARY | 2025-02-14 09:25 | XMS_ITS | Encounter Summary ---
Author Organization [facility] Address [address] [place] [address] Care Team Providers Care Supervisor Treating And Pumping Name Role Phone Cuba Solano MD Primary Care Provider +1 [phone] Encounter Details Date Type Department Care Team (Latest Contact Info) Description 12/25/2003 Outpatient Historical [facility] Family Medicine Angelica [address] [address] Donte Borrego MD NO ADDRESS ON FILE EDEMA (Primary Dx); APNEA; POLYP OF NASAL CAVITY Social History Tobacco Use Types Packs/Day Years Used Date Smoking Tobacco: Never Assessed Sex and Gender Information Value Date Recorded Sex Assigned at Not on file Legal Sex Male 2:49 AM WEB MERCHANDISER Gender Identity Not on file Sexual Orientation Not on file documented as of this encounter Plan of Treatment Not on file documented as of this encounter Visit Diagnoses Diagnosis Edema- Primary Apnea Polyp of nasal cavity documented in this encounter Care Teams Supervisor Treating And Pumping Relationship Specialty Start Date End Date Cuba Solano MD PCP - General 07/11/09 documented as of this encounter
--- OUTSIDE RECORDS SUMMARY | 2025-02-14 09:25 | XMS_ITS | Encounter Summary ---
Author Organization [facility] Address [address] [place] [address] Care Team Providers Care Home Support Worker Name Role Phone Cuba Solano MD Primary Care Provider +1 [phone] Encounter Details Date Type Department Care Team (Latest Contact Info) Description 10/16/2003 Outpatient Historical [facility] Endoscopy [address] [place] [address] Sandro Haines MD [address] [facility] [address] [place] [address] MELENA, BLOOD IN STOOL (Primary Dx) Social History Tobacco Use Types Packs/Day Years Used Date Smoking Tobacco: Never Assessed Sex and Gender Information Value Date Recorded Sex Assigned at Not on file Legal Sex Male 2:49 AM INSPECTOR MATERIAL DISPOSITION Gender Identity Not on file Sexual Orientation Not on file documented as of this encounter Plan of Treatment Not on file documented as of this encounter Visit Diagnoses Diagnosis Blood in stool- Primary documented in this encounter Care Teams Home Support Worker Relationship Specialty Start Date End Date Cuba Solano MD PCP - General 07/11/09 documented as of this encounter
--- OUTSIDE RECORDS SUMMARY | 2025-02-14 09:25 | XMS_ITS | Encounter Summary ---
Author Organization [facility] Address [address] [place] [address] Care Team Providers Care Training Lead Name Role Phone Cuba Solano MD Primary Care Provider +1 [phone] Encounter Details Date Type Department Care Team (Latest Contact Info) Description 05/27/2006 Outpatient Historical [facility] Family Medicine [place] [address] [address] Keyona Mccloud, LUCIEN NO ADDRESS ON FILE Other B-Complex Deficiencies (Primary Dx) Social History Tobacco Use Types Packs/Day Years Used Date Smoking Tobacco: Never Assessed Sex and Gender Information Value Date Recorded Sex Assigned at Not on file Legal Sex Male 2:49 AM BUSINESS SERVICES VICE PRESIDENT Gender Identity Not on file Sexual Orientation Not on file documented as of this encounter Plan of Treatment Not on file documented as of this encounter Visit Diagnoses Diagnosis Other B-complex deficiencies- Primary documented in this encounter Care Teams Training Lead Relationship Specialty Start Date End Date Cuba Solano MD PCP - General 07/11/09 documented as of this encounter
--- OUTSIDE RECORDS SUMMARY | 2025-02-14 09:25 | XMS_ITS | Encounter Summary ---
Author Organization [facility] Address [address] [place] [address] Care Team Providers Care Crab Steamer Name Role Phone Cuba Solano MD Primary Care Provider +1 -[phone] Encounter Details Date Type Department Care Team (Latest Contact Info) Description 02/01/2004 Outpatient Historical [facility] Family Medicine Angelica [address] [address] Donte Borrego MD NO ADDRESS ON FILE ANEMIA NOS (Primary Dx); AFTERCARE EMBOSSING TOOL SETTER USE MEDICATN; GOUT NOS Social History Tobacco Use Types Packs/Day Years Used Date Smoking Tobacco: Never Assessed Sex and Gender Information Value Date Recorded Sex Assigned at Not on file Legal Sex Male 2:49 AM BOBBIN TRUCKER Gender Identity Not on file Sexual Orientation Not on file documented as of this encounter Plan of Treatment Not on file documented as of this encounter Visit Diagnoses Diagnosis Anemia, unspecified- Primary Encounter for long-term (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 of other medications Gout, unspecified documented in this encounter Care Teams Crab Steamer Relationship Specialty Start Date End Date Cuba Solano MD PCP - General 07/11/09 documented as of this encounter
--- OUTSIDE RECORDS SUMMARY | 2025-02-14 09:25 | XMS_ITS | Encounter Summary ---
Author Organization [facility] Address [address] [place] [address] Care Team Providers Care Kiln Door Repairer Name Role Phone Cuba Solano MD Primary Care Provider +1 [phone] Encounter Details Date Type Department Care Team (Latest Contact Info) Description 04/23/2006 Outpatient Historical [facility] Orth[facility]- [address] [place] [address] Ash Lopez III, MD [address] [place] [address] Pain in Joint, Shoulder Region (Primary Dx) Social History Tobacco Use Types Packs/Day Years Used Date Smoking Tobacco: Never Assessed Sex and Gender Information Value Date Recorded Sex Assigned at Not on file Legal Sex Male 2:49 AM TRASH HAULER Gender Identity Not on file Sexual Orientation Not on file documented as of this encounter Plan of Treatment Not on file documented as of this encounter Visit Diagnoses Diagnosis Pain in joint, shoulder region- Primary documented in this encounter Care Teams Kiln Door Repairer Relationship Specialty Start Date End Date Cuba Solano MD PCP - General 07/11/09 documented as of this encounter
--- OUTSIDE RECORDS SUMMARY | 2025-02-14 09:25 | XMS_ITS | Encounter Summary ---
Author Organization [facility] Address [address] [place] [address] Care Team Providers Care Firer Boiler Name Role Phone Cuba Solano MD Primary Care Provider +1 -[phone] Encounter Details Date Type Department Care Team (Latest Contact Info) Description 01/05/2003 Outpatient Historical [facility] Cardiovascular Services [address] [place] [address] Non-Staff, Physician NO ADDRESS ON FILE PAIN IN LIMB (Primary Dx) Social History Tobacco Use Types Packs/Day Years Used Date Smoking Tobacco: Never Assessed Sex and Gender Information Value Date Recorded Sex Assigned at Not on file Legal Sex Male 2:49 AM CYCLE DIRECTOR Gender Identity Not on file Sexual Orientation Not on file documented as of this encounter Plan of Treatment Not on file documented as of this encounter Visit Diagnoses Diagnosis Pain in limb- Primary documented in this encounter Care Teams Firer Boiler Relationship Specialty Start Date End Date Cuba Solano MD PCP - General 07/11/09 documented as of this encounter
--- OUTSIDE RECORDS SUMMARY | 2025-02-14 09:25 | XMS_ITS | Encounter Summary ---
Author Organization [facility] Address [address] [place] [address] Care Team Providers Care Sql Programmer Analyst Name Role Phone Cuba Solano MD Primary Care Provider +1 -[phone] Encounter Details Date Type Department Care Team (Latest Contact Info) Description 02/25/2004 Outpatient Historical [facility] Family Medicine [place] [address]02 [address] [address] Keyona Mccloud FNP NO ADDRESS ON FILE DIABETES MELLITUS TYPE II-UNCOMPL (CMS/HCC) (Primary Dx); ACUTE URI NOS Social History Tobacco Use Types Packs/Day Years Used Date Smoking Tobacco: Never Assessed Sex and Gender Information Value Date Recorded Sex Assigned at Not on file Legal Sex Male 2:49 AM SALES REPRESENTATIVE GRAPHIC ART Gender Identity Not on file Sexual Orientation Not on file documented as of this encounter Plan of Treatment Not on file documented as of this encounter Visit Diagnoses Diagnosis Type II or unspecified type diabetes mellitus 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, not stated as uncontrolled- Primary Acute upper respiratory infections of unspecified site documented in this encounter Care Teams Sql Programmer Analyst Relationship Specialty Start Date End Date Cuba Solano MD PCP - General 07/11/09 documented as of this encounter
--- OUTSIDE RECORDS SUMMARY | 2025-02-14 09:25 | XMS_ITS | Encounter Summary ---
Author Organization [facility] Address [address] [place] [address] Care Team Providers Care Records Specialist Name Role Phone Cuba Solano MD Primary Care Provider +1 -[phone] Encounter Details Date Type Department Care Team (Latest Contact Info) Description 05/30/2002 Outpatient Historical [facility] Family Medicine Angelica [address] [address] Donte Borrego MD NO ADDRESS ON FILE ANEMIA NOS (Primary Dx) Social History Tobacco Use Types Packs/Day Years Used Date Smoking Tobacco: Never Assessed Sex and Gender Information Value Date Recorded Sex Assigned at Not on file Legal Sex Male 2:49 AM CLAIM AUDITOR Gender Identity Not on file Sexual Orientation Not on file documented as of this encounter Plan of Treatment Not on file documented as of this encounter Visit Diagnoses Diagnosis Anemia, unspecified- Primary documented in this encounter Care Teams Records Specialist Relationship Specialty Start Date End Date Cuba Solano MD PCP - General 07/11/09 documented as of this encounter
--- OUTSIDE RECORDS SUMMARY | 2025-02-14 09:25 | XMS_ITS | Encounter Summary ---
Author Organization [facility] Address [address] [place] [address] Care Team Providers Care Hoop Rolls Operator Name Role Phone Cuba Solano MD Primary Care Provider +1 -[phone] Encounter Details Date Type Department Care Team (Latest Contact Info) Description 05/04/2003 Outpatient Historical [facility] Family Medicine [place] [address] [address] Keyona Mccloud, LUCIEN NO ADDRESS ON FILE ACUTE URI NOS (Primary Dx); PERNICIOUS ANEMIA Social History Tobacco Use Types Packs/Day Years Used Date Smoking Tobacco: Never Assessed Sex and Gender Information Value Date Recorded Sex Assigned at Not on file Legal Sex Male 2:49 AM CASING FLUID TENDER Gender Identity Not on file Sexual Orientation Not on file documented as of this encounter Plan of Treatment Not on file documented as of this encounter Visit Diagnoses Diagnosis Acute upper respiratory infections of unspecified site- Primary Pernicious anemia documented in this encounter Care Teams Hoop Rolls Operator Relationship Specialty Start Date End Date Cuba Solano MD PCP - General 07/11/09 documented as of this encounter
--- OUTSIDE RECORDS SUMMARY | 2025-02-14 09:25 | XMS_ITS | Encounter Summary ---
Author Organization [facility] Address [address] [place] [address] Care Team Providers Care Correctional Officer Lieutenant Name Role Phone Cuba Solano MD Primary Care Provider +1 -[phone] Encounter Details Date Type Department Care Team (Late st Contact Info) Description 11/27/2003 Outpatient Historical [facility] Family Medicine [place] [address] [address] Social History Tobacco Use Types Packs/Day Years Used Date Smoking Tobacco: Never Assessed Sex and Gender Information Value Date Recorded Sex Assigned at Not on file Legal Sex Male 2:49 AM INTERNET E COMMERCE SPECIALIST Gender Identity Not on file Sexual Orientation Not on file documented as of this encounter Plan of Treatment Not on file documented as of this encounter Visit Diagnoses Not on filedocumented in this encounter Care Teams Correctional Officer Lieutenant Relationship Specialty Start Date End Date Cuba Solano MD PCP - General 07/11/09 documented as of this encounter
--- OUTSIDE RECORDS SUMMARY | 2025-02-14 09:25 | XMS_ITS | Encounter Summary ---
Author Organization [facility] Address [address] [place] [address] Care Team Providers Care Circle Edger Name Role Phone Cuba Solano MD Primary Care Provider +1 -[phone] Encounter Details Date Type Department Care Team (Latest Contact Info) Description 09/01/2002 Outpatient Historical [facility] Family Medicine Angelica [address] [address] Donte Borrego MD NO ADDRESS ON FILE ANEMIA NOS (Primary Dx) Social History Tobacco Use Types Packs/Day Years Used Date Smoking Tobacco: Never Assessed Sex and Gender Information Value Date Recorded Sex Assigned at Not on file Legal Sex Male 2:49 AM JEWELRY JOBBER Gender Identity Not on file Sexual Orientation Not on file documented as of this encounter Plan of Treatment Not on file documented as of this encounter Visit Diagnoses Diagnosis Anemia, unspecified- Primary documented in this encounter Care Teams Circle Edger Relationship Specialty Start Date End Date Cuba Solano MD PCP - General 07/11/09 documented as of this encounter
--- OUTSIDE RECORDS SUMMARY | 2025-02-14 09:25 | XMS_ITS | Encounter Summary ---
Author Organization [facility] Address [address] [place] [address] Care Team Providers Care Slitter And Cutter Operator Name Role Phone Cuba Solano MD Primary Care Provider +1 -[phone] Encounter Details Date Type Department Care Team (Latest Contact Info) Description 05/04/2006 Outpatient Historical [facility] Family Medicine [place] [address] [address] Keyona Mccloud FNP NO ADDRESS ON FILE DM w/o Complication Type II (CMS/HCC) (Primary Dx); Other and Unspecified Hyperlipidemia; Encounter for Long-Term (Current) Use of Other Medications Social History Tobacco Use Types Packs/Day Years Used Date Smoking Tobacco: Never Assessed Sex and Gender Information Value Date Recorded Sex Assigned at Not on file Legal Sex Male 2:49 AM BOAT CREW DECK HAND Gender Identity Not on file Sexual [...] medications documented in this encounter Care Teams Slitter And Cutter Operator Relationship Specialty Start Date End Date Cuba Solano MD PCP - General 07/11/09 documented as of this encounter
--- OUTSIDE RECORDS SUMMARY | 2025-02-14 09:25 | XMS_ITS | Encounter Summary ---
Author Organization [facility] Address [address] [place] [address] Care Team Providers Care Vise Hand Name Role Phone Cuba Solano MD Primary Care Provider +1 -[phone] Encounter Details Date Type Department Care Team (Latest Contact Info) Description 12/04/2003 Outpatient Historical [facility] Family Medicine [place] [address] [address] Donte Borrego MD NO ADDRESS ON FILE URIN TRACT INFECTION NOS (Primary Dx); ANEMIA NOS; UNSPEC CONSTIPATION Social History Tobacco Use Types Packs/Day Years Used Date Smoking Tobacco: Never Assessed Sex and Gender Information Value Date Recorded Sex Assigned at Not on file Legal Sex Male 2:49 AM CERTIFIED MASSAGE THERAPIST Gender Identity Not on file Sexual Orientation Not on file documented as of this encounter Plan of Treatment Not on file documented as of this encounter Visit Diagnoses Diagnosis Urinary tract infection, site not specified- Primary Anemia, unspecified Unspecified constipation documented in this encounter Care Teams Vise Hand Relationship Specialty Start Date End Date Cuba Solano MD PCP - General 07/11/09 documented as of this encounter
--- OUTSIDE RECORDS SUMMARY | 2025-02-14 09:25 | XMS_ITS | Encounter Summary ---
Author Organization [facility] Address [address] [place] [address] Care Team Providers Care Treating Plant Operator Name Role Phone Cuba Solano MD Primary Care Provider +1 [phone] Encounter Details Date Type Department Care Team (Latest Contact Info) Description 10/12/2003 Outpatient Historical [facility] Family Medicine [place] [address] [address] Donte Borrego MD NO ADDRESS ON FILE GASTROINTEST HEMORR NOS (Primary Dx) Social History Tobacco Use Types Packs/Day Years Used Date Smoking Tobacco: Never Assessed Sex and Gender Information Value Date Recorded Sex Assigned at Not on file Legal Sex Male 2:49 AM EVENT SERVICES MANAGER Gender Identity Not on file Sexual Orientation Not on file documented as of this encounter Plan of Treatment Not on file documented as of this encounter Visit Diagnoses Diagnosis Hemorrhage of gastrointestinal tract, unspecified- Primary documented in this encounter Care Teams Treating Plant Operator Relationship Specialty Start Date End Date Cuba Solano MD PCP - General 07/11/09 documented as of this encounter
--- OUTSIDE RECORDS SUMMARY | 2025-02-14 09:25 | XMS_ITS | Encounter Summary ---
Author Organization [facility] Address [address] [place] [address] Care Team Providers Care Sock Examiner Name Role Phone Cuba Solano MD Primary Care Provider +1 [phone] Encounter Details Date Type Department Care Team (Latest Contact Info) Description 10/02/2002 Outpatient Historical [facility] Family Medicine Angelica [address] [address] Donte Borrego MD NO ADDRESS ON FILE ANEMIA NOS (Primary Dx) Social History Tobacco Use Types Packs/Day Years Used Date Smoking Tobacco: Never Assessed Sex and Gender Information Value Date Recorded Sex Assigned at Not on file Legal Sex Male 2: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
--- OUTSIDE RECORDS SUMMARY | 2025-02-14 09:25 | XMS_ITS | Encounter Summary ---
Author Organization [facility] Address [address] [place] [address] Care Team Providers Care Wrapper Opener Name Role Phone Cuba Solano MD Primary Care Provider +1 [phone] Encounter Details Date Type Department Care Team (Latest Contact Info) Description 01/03/2004 Outpatient Historical [facility] Family Medicine [place] [id number] [address] Keyona Mccloud, LUCIEN NO ADDRESS ON FILE ANEMIA NOS (Primary Dx) Social History Tobacco Use Types Packs/Day Years Used Date Smoking Tobacco: Never Assessed Sex and Gender Information Value Date Recorded Sex Assigned at Not on file Legal Sex Male 2:49 AM TRANSMISSION DESIGN ENGINEER Gender Identity Not on file Sexual Orientation Not on file documented as of this encounter Plan of Treatment Not on file documented as of this encounter Visit Diagnoses Diagnosis Anemia, unspecified- Primary documented in this encounter Care Teams Wrapper Opener Relationship Specialty Start Date End Date Cuba Solano MD PCP - General 07/11/09 documented as of this encounter
--- OUTSIDE RECORDS SUMMARY | 2025-02-14 09:26 | XMS_ITS | Encounter Summary ---
Author Organization [facility] Address [address] [place] [address] Care Team Providers Care Mining Speculator Name Role Phone Cuba Solano MD Primary Care Provider +1 [phone] Encounter Details Date Type Department Care Team (Latest Contact Info) Description 11/30/2006 Outpatient Historical [facility] Family Medicine [place] [id number] [address] Keyona Mccloud, LUCIEN NO ADDRESS ON FILE Unspecified Otitis Media (Primary Dx); DM w/o Complication Type II (CMS/HCC); Asymptomatic Varicose Veins Social History Tobacco Use Types Packs/Day Years Used Date Smoking Tobacco: Never Assessed Sex and Gender Information Value Date Recorded Sex Assigned at Not on file Legal Sex Male 2:49 AM DATA SCIENCE AND IOT MANAGER Gender Identity Not on file Sexual Orientation Not on file documented as of this encounter Plan of Treatment Not on file documented as of this encounter Visit Diagnoses Diagnosis Unspecified otitis media- Primary Type II or unspecified type diabetes mellitus 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, not stated as uncontrolled Asymptomatic varicose veins Uncomplicated varicose veins documented in this encounter Care Teams Mining Speculator Relationship Specialty Start Date End Date Cuba Solano MD PCP - General 07/11/09 documented as of this encounter
--- OUTSIDE RECORDS SUMMARY | 2025-02-14 09:26 | XMS_ITS | Encounter Summary ---
Author Organization [facility] Address [address] [place] [address] Care Team Providers Care Mission Planner Name Role Phone Cuba Solano MD Primary Care Provider +1 [phone] Encounter Details Date Type Department Care Team (Latest Contact Info) Description 12/03/2006 Outpatient Historical [place] 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
--- OUTSIDE RECORDS SUMMARY | 2025-02-14 09:26 | XMS_ITS | Encounter Summary ---
Author Organization [facility] Address [address] [place] [address] Care Team Providers Care Procedures Analyst Name Role Phone Cuba Solano MD Primary Care Provider +1 [phone] Encounter Details Date Type Department Care Team (Latest Contact Info) Description 06/26/2004 Outpatient Historical [facility] Family Medicine [place] [address] [address] Keyona Mccloud, CORRESPONDENCE DICTATOR NO ADDRESS ON FILE ALLERGY, UNSPECIFIED (Primary Dx) Social History Tobacco Use Types Packs/Day Years Used Date Smoking Tobacco: Never Assessed Sex and Gender Information Value Date Recorded Sex Assigned at Not on file Legal Sex Male 2:49 AM REHABILITATION SERVICES AIDE Gender Identity Not on file Sexual Orientation Not on file documented as of this encounter Plan of Treatment Not on file documented as of this encounter Visit Diagnoses Diagnosis Allergy, unspecified not elsewhere classified- Primary documented in this encounter Care Teams Procedures Analyst Relationship Specialty Start Date End Date Cuba Solano MD PCP - General 07/11/09 documented as of this encounter
--- OUTSIDE RECORDS SUMMARY | 2025-02-14 09:26 | XMS_ITS | Encounter Summary ---
Author Organization [facility] Address [address] [place] [address] Care Team Providers Care Trustee Of Estate Name Role Phone Cuba Solano MD Primary Care Provider [phone] [phone] Encounter Details Date Type Department Care Team (Late st Contact Info) Description 04/05/2007 Outpatient Historical [facility] Family Medicine [place] [id number] [address] Social History Tobacco Use Types Packs/Day Years Used Date Smoking Tobacco: Never Assessed Sex and Gender Information Value Date Recorded Sex Assigned at Not on file Legal Sex Male 2:49 AM INSURANCE COLLECTOR Gender Identity Not on file Sexual Orientation Not on file documented as of this encounter Plan of Treatment Not on file documented as of this encounter Visit Diagnoses Not on filedocumented in this encounter Care Teams Trustee Of Estate Relationship Specialty Start Date End Date Cuba Solano MD PCP - General 07/11/09 documented as of this encounter
--- OUTSIDE RECORDS SUMMARY | 2025-02-14 09:26 | XMS_ITS | Encounter Summary ---
Author Organization [facility] Address [address] [place] [address] Care Team Providers Care Mattress Filler Name Role Phone Cuba Solano MD Primary Care Provider +1 [phone] Encounter Details Date Type Department Care Team (Latest Contact Info) Description 05/11/2007 Outpatient Historical [facility] [address] [place] [address] Keyona Mccloud, LUCIEN NO ADDRESS ON FILE DM w/o Complication Type II, Uncontrolled Social History Tobacco Use Types Packs/Day Years Used Date Smoking Tobacco: Never Assessed Sex and Gender Information Value Date Recorded Sex Assigned at Not on file Legal Sex Male 2:49 AM SPECTROGRAPHIC ANALYST Gender Identity Not on file Sexual Orientation Not on file documented as of this encounter Plan of Treatment Not on file documented as of this encounter Visit Diagnoses Diagnosis Type II or unspecified type diabetes mellitus 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, uncontrolled documented in this encounter Care Teams Mattress Filler Relationship Specialty Start Date End Date Cuba Solano MD PCP - General 07/11/09 documented as of this encounter
--- OUTSIDE RECORDS SUMMARY | 2025-02-14 09:26 | XMS_ITS | Encounter Summary ---
Author Organization [facility] Address [address] [place] [address] Care Team Providers Care Space Operations Officer Name Role Phone Cuba Solano MD Primary Care Provider +1 [phone] Encounter Details Date Type Department Care Team (Latest Contact Info) Description 09/11/2003 Outpatient [facility] Family Medicine [place] [id number] [address] Keyona Mccloud, LUCIEN NO ADDRESS ON FILE ALLERGY, UNSPECIFIED (Primary Dx); DERMATITIS NOS; HYPERTENSION NOS; HYPERLIPIDEMIA NEC/NOS Social History Tobacco Use Types Packs/Day Years Used Date Smoking Tobacco: Never Assessed Sex and Gender Information Value Date Recorded Sex Assigned at Not on file Legal Sex Male 2:49 AM HEADING REPAIRER Gender Identity Not on file Sexual Orientation Not on file documented as of this encounter Plan of Treatment Not on file documented as of this encounter Visit Diagnoses Diagnosis Allergy, unspecified not elsewhere classified- Primary Contact dermatitis and other eczema, due to unspecified cause Unspecified essential hypertension Other and unspecified hyperlipidemia documented in this encounter Care Teams Space Operations Officer Relationship Specialty Start Date End Date Cuba Solano MD PCP - General 07/11/09 documented as of this encounter
--- OUTSIDE RECORDS SUMMARY | 2025-02-14 09:26 | XMS_ITS | Encounter Summary ---
Author Organization [facility] Address [address] [place] [address] Care Team Providers Care Cutting Table Operator First Name Role Phone Cuba Solano MD Primary Care Provider +1 [phone] Encounter Details Date Type Department Care Team (Latest Contact Info) Description 06/11/2004 Outpatient Historical [facility] Family Medicine Angelica [facility] [address] [address] Huey Upton Jr., MD [address] [place] [address] 248 [facility] [address] [place] [address] DIABETES MELLITUS TYPE II-UNCOMPL (CMS/HCC) (Primary Dx); JOINT PAIN-L/LEG Social History Tobacco Use Types Packs/Day Years Used Date Smoking Tobacco: Never Assessed Sex and Gender Information Value Date Recorded Sex Assigned at Not on file Legal Sex Male 2:49 AM WELDER APPRENTICE Gender Identity Not on file Sexual Orientation Not on file documented as of this encounter Plan of Treatment Not on file documented as of this encounter Visit Diagnoses Diagnosis Type II or unspecified type diabetes mellitus 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, not stated as uncontrolled- Primary Pain in joint, lower leg documented in this encounter Care Teams Cutting Table Operator First Relationship Specialty Start Date End Date Cuba Solano MD PCP - General 07/11/09 documented as of this encounter
--- OUTSIDE RECORDS SUMMARY | 2025-02-14 09:26 | XMS_ITS | Encounter Summary ---
Author Organization [facility] Address [address] [place] [address] Care Team Providers Care Cafeteria Manager Name Role Phone Cuba Solano MD Primary Care Provider +1 [phone] Encounter Details Date Type Department Care Team (Latest Contact Info) Description 06/17/2007 Outpatient Historical [place] [address] [place] [address] Celso Calvert MD [address] [place] [address] DM w/o Complication Type II, Uncontrolled Social History Tobacco Use Types Packs/Day Years Used Date Smoking Tobacco: Never Assessed Sex and Gender Information Value Date Recorded Sex Assigned at Not on file Legal Sex Male 2:49 AM STORAGE MANAGER Gender Identity Not on file Sexual Orientation Not on file documented as of this encounter Plan of Treatment Not on file documented as of this encounter Visit Diagnoses Diagnosis Type II or unspecified type diabetes mellitus 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, uncontrolled documented in this encounter Care Teams Cafeteria Manager Relationship Specialty Start Date End Date Cuba Solano MD PCP - General 07/11/09 documented as of this encounter
--- OUTSIDE RECORDS SUMMARY | 2025-02-14 09:26 | XMS_ITS | Encounter Summary ---
Author Organization [facility] Address [address] [place] [address] Care Team Providers Care Cloth Examiner Name Role Phone Cuba Solano MD Primary Care Provider +1 [phone] Encounter Details Date Type Department Care Team (Latest Contact Info) Description 09/06/2006 [facility] [address] [place] [address] Huey Upton Jr., MD [address] [place], [place] [address] [address] [place] [address] DM w/o Complication Type II (CMS/HCC) (Primary Dx) Social History Tobacco Use Types Packs/Day Years Used Date Smoking Tobacco: Never Assessed Sex and Gender Information Value Date Recorded Sex Assigned at Not on file Legal Sex Male 2:49 AM DEATH CLAIM EXAMINER Gender Identity Not on file Sexual Orientation Not on file documented as of this encounter Plan of Treatment Not on file documented as of this encounter Visit Diagnoses Diagnosis Type II or unspecified type diabetes mellitus 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, not stated as uncontrolled- Primary documented in this encounter Care Teams Cloth Examiner Relationship Specialty Start Date End Date Cuba Solano MD PCP - General 07/11/09 documented as of this encounter
--- OUTSIDE RECORDS SUMMARY | 2025-02-14 09:26 | XMS_ITS | Encounter Summary ---
Author Organization [facility] Address [address] [place] [address] Care Team Providers Care Seo Manager Name Role Phone Cuba Solano MD Primary Care Provider +1 -[phone] Encounter Details Date Type Department Care Team (Latest Contact Info) Description 06/10/2007 Outpatient Historical [facility] [address] [place] [address] Keyona Mccloud, LUCIEN NO ADDRESS ON FILE DM w/o Complication Type II, Uncontrolled Social History Tobacco Use Types Packs/Day Years Used Date Smoking Tobacco: Never Assessed Sex and Gender Information Value Date Recorded Sex Assigned at Not on file Legal Sex Male 2:49 AM HRIS SPECIALIST Gender Identity Not on file Sexual Orientation Not on file documented as of this encounter Plan of Treatment Not on file documented as of this encounter Visit Diagnoses Diagnosis Type II or unspecified type diabetes mellitus 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, uncontrolled documented in this encounter Care Teams Seo Manager Relationship Specialty Start Date End Date Cuba Solano MD PCP - General 07/11/09 documented as of this encounter
--- OUTSIDE RECORDS SUMMARY | 2025-02-14 09:26 | XMS_ITS | Encounter Summary ---
Author Organization [facility] Address [address] [place] [address] Care Team Providers Care Collections Clerk Name Role Phone Cuba Solano MD Primary Care Provider +1 -[phone] Encounter Details Date Type Department Care Team (Latest Contact Info) Description 06/06/2004 Outpatient Historical [facility] [address] [place] [address] Frances Davies, ANALYSIS INTERN [address] [place] [address] HYPERSOMNI W SLEEP APNEA (Primary Dx) Social History Tobacco Use Types Packs/Day Years Used Date Smoking Tobacco: Never Assessed Sex and Gender Information Value Date Recorded Sex Assigned at Not on file Legal Sex Male 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
--- OUTSIDE RECORDS SUMMARY | 2025-02-14 09:26 | XMS_ITS | Encounter Summary ---
Author Organization [facility] Address [address] [place] [address] Care Team Providers Care Alternative Dispute Resolution Mediator Name Role Phone Cuba Solano MD Primary Care Provider +1 -[phone] Encounter Details Date Type Department Care Team (Late st Contact Info) Description 04/05/2007 Outpatient Historical [facility] Family Medicine [place] [address] [address] Keyona Mccloud, PRESS TENDER STAR SIGNAL NO ADDRESS ON FILE Social History Tobacco Use Types Packs/Day Years Used Date Smoking Tobacco: Never Assessed Sex and Gender Information Value Date Recorded Sex Assigned at Not on file Legal Sex Male 2:49 AM APPRENTICE PATTERN MAKER Gender Identity Not on file Sexual Orientation Not on file documented as of this encounter Plan of Treatment Not on file documented as of this encounter Visit Diagnoses Not on filedocumented in this encounter Care Teams Alternative Dispute Resolution Mediator Relationship Specialty Start Date End Date Cuba Solano MD PCP - General 07/11/09 documented as of this encounter
--- OUTSIDE RECORDS SUMMARY | 2025-02-14 09:26 | XMS_ITS | Encounter Summary ---
Author Organization [facility] Address [address] [place] [address] Care Team Providers Care Video Network Engineer Name Role Phone Cuba Solano MD Primary Care Provider +1 -[phone] Encounter Details Date Type Department Care Team (Latest Contact Info) Description 08/07/2003 Outpatient Historical [facility] Family Medicine [place] [address] [address] Donte Borrego MD NO ADDRESS ON FILE LUPUS ERYTHEMATOSUS (Primary Dx); ALLERGY, UNSPECIFIED Social History Tobacco Use Types Packs/Day Years Used Date Smoking Tobacco: Never Assessed Sex and Gender Information Value Date Recorded Sex Assigned at Not on file Legal Sex Male 2:49 AM SECURITY THREAT ANALYST Gender Identity Not on file Sexual Orientation Not on file documented as of this encounter Plan of Treatment Not on file documented as of this encounter Visit Diagnoses Diagnosis Lupus erythematosus- Primary Allergy, unspecified not elsewhere classified documented in this encounter Care Teams Video Network Engineer Relationship Specialty Start Date End Date Cuba Solano MD PCP - General 07/11/09 documented as of this encounter
--- OUTSIDE RECORDS SUMMARY | 2025-02-14 09:26 | XMS_ITS | Encounter Summary ---
Author Organization [facility] Address [address] [place] [address] Care Team Providers Care Master Motorcycle Technician Name Role Phone Cuba Solano MD Primary Care Provider +1 -[phone] Encounter Details Date Type Department Care Team (Latest Contact Info) Description 07/08/2006 Outpatient Historical [facility] Family Medicine [place] [address] [address] Keyona Mccloud, MUSIC JOURNALIST NO ADDRESS ON FILE Allergy, Unspecified not Elsewhere Classified (Primary Dx) Social History Tobacco Use Types Packs/Day Years Used Date Smoking Tobacco: Never Assessed Sex and Gender Information Value Date Recorded Sex Assigned at Not on file Legal Sex Male 2:49 AM TELEVISION AUDIO ENGINEER Gender Identity Not on file Sexual Orientation Not on file documented as of this encounter Plan of Treatment Not on file documented as of this encounter Visit Diagnoses Diagnosis Allergy, unspecified not elsewhere classified- Primary documented in this encounter Care Teams Master Motorcycle Technician Relationship Specialty Start Date End Date Cuba Solano MD PCP - General 07/11/09 documented as of this encounter
--- OUTSIDE RECORDS SUMMARY | 2025-02-14 09:26 | XMS_ITS | Encounter Summary ---
Author Organization [facility] Address [address] [place] [address] Care Team Providers Care Post Acute Care Registered Nurse Name Role Phone Cuba Solano MD Primary Care Provider +1 -[phone] Encounter Details Date Type Department Care Team (Latest Contact Info) Description 11/12/2006 Outpatient Historical [facility] Family Medicine [place] [address] [address] Keyona Mccloud, LUCIEN NO ADDRESS ON FILE Pain in Limb (Primary Dx) Social History Tobacco Use Types Packs/Day Years Used Date Smoking Tobacco: Never Assessed Sex and Gender Information Value Date Recorded Sex Assigned at Not on file Legal Sex Male 2: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
--- OUTSIDE RECORDS SUMMARY | 2025-02-14 09:26 | XMS_ITS | Encounter Summary ---
Author Organization [facility] Address [address] [place] [address] Care Team Providers Care Rider Ticket Worker Name Role Phone Cuba Solano MD Primary Care Provider +1 -[phone] Encounter Details Date Type Department Care Team (Latest Contact Info) Description 07/27/2006 Outpatient Historical 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
--- OUTSIDE RECORDS SUMMARY | 2025-02-14 09:26 | XMS_ITS | Encounter Summary ---
Author Organization [facility] Address [address] [place] [address] Care Team Providers Care Property Controller Name Role Phone Cuba Solano MD Primary Care Provider [phone] [phone] Encounter Details Date Type Department Care Team (Latest Contact Info) Description 09/04/2003 Outpatient Historical [facility] Family Medicine Angelica [facility] [address] [address] Huey Upton Jr., MD [address] [place] [address] 248 [facility] [address] [place] [address] OTHER MALAISE AND FATIGUE (Primary Dx) Social History Tobacco Use Types Packs/Day Years Used Date Smoking Tobacco: Never Assessed Sex and Gender Information Value Date Recorded Sex Assigned at Not on file Legal 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
--- OUTSIDE RECORDS SUMMARY | 2025-02-14 09:26 | XMS_ITS | Encounter Summary ---
Author Organization [facility] Address [address] [place] [address] Care Team Providers Care Drapery Cutter Name Role Phone Cuba Solano MD Primary Care Provider [phone] Encounter Details Date Type Department Care Team (Latest Contact Info) Description 07/15/2006 Outpatient Historical [facility] [place] [address] [facility] [address] [place] [address] Ash Lopez III, MD [address] [place] [address] Adhesive Capsulitis of Shoulder (Primary Dx) Social History Tobacco Use Types Packs/Day Years Used Date Smoking Tobacco: Never Assessed Sex and Gender Information Value Date Recorded Sex Assigned at Not on file 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 Gender Identity Not on file Sexual Orientation [...] OF CARE TESTING Edited Performing Organization Address City/[facility] Co de Phone Number INTERFACE SYSTEM Refer to clinic/hospital department * (ABNORMAL) POC GLUCOSE (07/15/2006 11:02 AM CDT) GLUCOSE POC 116(H) 60 - 100 mg/dL INTERFACE SYSTEM 07/15/2006 11:0 2 AM CDT Ash Lopez III, MD POINT OF CARE TESTING Edited Performing Organization Address [facility] de Phone Number INTERFACE SYSTEM Refer to clinic/hospital department documented in this encounter Visit Diagnoses Diagnosis Adhesive capsulitis of shoulder- Primary documented in this encounter Care Teams Drapery Cutter Relationship Specialty Start Date End Date Cuba Solano MD PCP - General 07/11/09 documented as of this encounter
--- OUTSIDE RECORDS SUMMARY | 2025-02-14 09:26 | XMS_ITS | Encounter Summary ---
Author Organization [facility] Address [address] [place] [address] Care Team Providers Care Hardware Press Operator Name Role Phone Cuba Solano MD Primary Care Provider [phone] Encounter Details Date Type Department Care Team (Late st Contact Info) Description 05/31/2007 Outpatient Historical [facility] Family Medicine Angelica [place] [id number] [address] Keyona Mccloud, BUNDLE SORTER NO ADDRESS ON FILE Social History Tobacco Use Types Packs/Day Years Used Date Smoking Tobacco: Never Assessed Sex and Gender Information Value Date Recorded Sex Assigned at Not on file Legal 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
--- OUTSIDE RECORDS SUMMARY | 2025-02-14 09:26 | XMS_ITS | Clinical Summary ---
Author Organization [facility] Facility Address [address] [address] Care Team Providers Care Hadoop Administrator Name Role Phone Loren Canada MD Primary Care Provider [phone] Allergies Active Allergy Reactions Criticality Noted Date [...] in the evening. Active ergocalciferol 1.25 MG (13087 UT) capsule Take 50,000 Units by mouth [...] 8.4 g by mouth 3 times weekly: Wed, and Wed in the evening. Active Active Problems Problem Noted Date Diagnosed Date Chronic kidney disease stage 3 due to type 2 diabetes mellitus 05/06/2023 Benign essential hypertension 10/05/2022 Immunizations Immunization Administration Dates Next Due Influenza, [...] Comments Blood Pressure 118/72 05/06/2023 11:00 AM BEAN SPROUT LABORER Pulse 81 05/06/2023 11:00 AM BEAN SPROUT LABORER Temperature - - Respiratory Rate - - Oxygen Saturation - - Inhaled Oxygen Concentration - - Weight 206 kg (455 lb) 05/06/2023 11:00 AM BEAN SPROUT LABORER p er patient Height 182.9 cm (6') 05/06/2023 11:00 AM BEAN SPROUT LABORER Body Mass Index 61.71 05/06/2023 11:00 AM BEAN SPROUT LABORER Plan of Treatment Health Maintenance Due Date Last Done Comments Pneumococcal Vaccine: 50+ Ye ars (3 of 3 - PCV) 02/20/2009 02/21/2008, 07/04/2001 Colorectal Cancer Screening: Annual FOBT 07/23/2012 Colorectal Cancer Screening: Colonoscopy 07/23/2012 Diabetes: Ophthalmology Exam 09/29/2022 Diabetes: Pedal Pulse Checked 09/29/2022 Diabetes: Sensory Foot Exam 09/29/2022 Diabetes: Visual Foot Exam 09/29/2022 Diabetes: Hemoglobin A1C 10/23/2022 07/23/2022 Hepatitis B Vaccine (1 of 3 - Risk 3-dose series) 2023 Influenza Vaccine (#1) 2025 , 02/20/2022, 02/25/2021, Additional history exists Colorectal Cancer Screening: Sigmoidoscopy 01/25/2025 01/26/2020 Pneumococcal Vaccine: Peds ( 0 to 5 Years) and At-Risk Patients (6 to 49 Years) Discontinued 02/21/2008, 07/04/2001 Procedures Procedure Name Priority Date/Time Associated Diagnosis Comments HEMOGLOBIN A1C (EXTERNAL RESULT ENTRY) Routine 07/23/2022 1:59 PM CDT from Last 3 Months or Most Recently Relevant to Health Maintenance Results * Hemoglobin A1C (07/23/2022 1:59 PM CDT) Hemoglobin A1C 6.8 Blood specimen (specimen) Venous blood / Unknown 07/23/2022 1:59 PM CDT Narrative Barbara Reynolds LPN - 10/05/2022 9:01 AM CDT Referral lab Historical Provider LAB BLOOD ORDERABLES Susanne lyn Result from Last 3 Months or Most Recently Relevant to Health Maintenance Insurance Medicare Medicaid [place] ([id number]) Care Teams Hadoop Administrator Relationship Specialty Start Date End Date Loren Canada MD [address] [place] [address] PCP - General Family Medicine 09/22/22
--- OUTSIDE RECORDS SUMMARY | 2025-02-14 09:26 | XMS_ITS | Continuity of Care Document ---
Author Organization [place] - [facility], [place], [facility]) Address [address] [place] [address] Assessment No assessment recorded. Plan of Treatment [...] Modified By Organization Details Last Modified Time 02/12/2025 [id number] hospital records reviewed dehydrated from diarrhea; diuretics held no fluid on attempted paracentesis, but lots of fluid in skin of abdomen Not available 02/12/2025 15:44:23 Reason for Referral None Reported. Results Created Date Observation Date Name Description Value Unit Range Abnormal Flag Note LastModifiedBy Organization Detail LastModifiedTime 02/09/2002/08/2025 imagi ng/di agnos tic resul t No observ ation record ed. [email or web address] [facility] [address] [place], [address], 02/12/2025 11:57:54 Result Notes None recorded. Problems Name Problem SNOMED Code Status Onset Date Resolution Date Notes Provider Name and Address Organization Details Recorded Time Essential hypertens ion 11211325 Active 2007 ESSENTIAL HYPERTENS ION; 8 2:16PM by Karla Joseph LPN, Office Visit; Promoted; acuity set as *; Not Available [facility] 3 03:17:47 Allergic rhinitis 81309751 Active 2007 ALLERGIC RHINITIS; 8 2:16PM by Karla Joseph LPN, Office Visit; Promoted; acuity set as *; Not Available [facility] 3 03:17:47 Persisten t insomnia 024357910 Active 2007 PERSISTEN T INSOMNIA; 8 2:16PM by Karla Joseph LPN, Office Visit; Promoted; acuity set as *; Not Available [facility] 3 03:17:52 Fracture of ankle 35469041 Active 2007 Ankle Fracture; 8 2:16PM by Karla Joseph LPN, Office Visit; Promoted; acuity set as *; Not Available [facility] 3 03:17:53 Peptic ulcer 32795524 Active 2007 PEPTIC ULCER; 8 2:16PM by Karla Joseph LPN, Office Visit; Promoted; acuity set as *; Not Available [facility] 3 03:17:53 Type 1 diabetes mellitus 46717433 Active 2007 DIABETES MELLITUS TYPE I; 8 2:16PM by Karla Joseph LPN, Office Visit; Promoted; acuity set as *; Not Available [facility] 3 03:17:58 Constipat ion 97185512 Active 2007 CONSTIPAT ION; 8 2:16PM by Karla Joseph LPN, Office Visit; Promoted; acuity set as *; Not Available [facility] 3 03:17:58 Amputated above knee 836207586 Active 2007 ABOVE KNEE AMPUTATIO N STATUS; 8 2:16PM by Karla Joseph LPN, Office Visit; Promoted; acuity set as *; Not Available [facility] 3 03:17:59 History of depressio n 990548588 Active 2007 DEPRESSIO N, NOS; 8 2:16PM by Karla Joseph LPN, Office Visit; Promoted; acuity set as *; Not Available [facility] 3 03:18:00 Hyperglyc emia due to type 2 diabetes mellitus 71605048699 9109 Active 2023 [facility] 13:09:52 Chronic back pain greater than three months duration 68072255544 2 Active 2023 [facility] 4 15:23:19 Blepharit is of right eyelid 94096080236 9103 Active 2024 [facility] 5 15:11:18 Congestiv e heart failure 25346281 Active 2024 [facility] 5 16:21:48 Acute right otitis media 663865917 Active 2024 [facility] 5 16:28:04 Pain of right shoulder joint 38442846681 192554 Active 2024 [facility] 5 17:59:42 Hepatospl enomegaly 90160141 Active 2024 [facility] 5 14:35:12 Thrombocy topenic disorder 672218155 Active 2024 [facility] 5 14:35:13 Problem Notes None recorded. Medical Equipment None Reported. Allergies Allergen ID Allergen Name Allergen Category Reaction Reaction Severity Criticality Documentation Date Start Date Code Code System Note Provider Name and Address Organization Details Recorded Time 96794 Product containin g penicilli n (product) medicatio n Not available Not available Not available 11/28/2022 53681 8001 SNOMED Comme nt: Recor ded 09/01 2:16P M by Briseida Joseph LPN, Offic e Visit ; Promo joanne; Signi [place]dale ce: *; ; Not Available [facility] 3 02:25:17 Medications Name Sig Start Date [...] Recorded 8 2:43PM by Jory George CMT, HistorBaitianshi l Summary; Refill Quantity: 0; Not Available [...] Address Organization Details Last Updated DateTime 5 111308. 69 g 112 /min 16 /min 98.2 [degF] 97 % 97 % 160/85 mm[Hg] NATHANAEL FISHER [facility] 5 14:34:17 Social History None recorded. Functional Status None recorded. Mental Status None recorded. Family History Nothing Reported. Medical History No medical history recorded. Immunizations Vaccine Type Date Status Note Provider Nam e and Address Organization Details Recorded Time influenza, unspecified formulation 8 completed Not Available [facility] 02/12/2025 13:42:26 Influenza, split virus, trivalent, preservative 0 completed Not Available [facility] 02/12/2025 13:42:26 COVID-19, mRNA, LNP-S, PF, 100 mcg/0.5mL dose or 50 mcg/0.25mL dose 1 completed Not Available [facility] 02/12/2025 13:42:26 COVID-19, mRNA, LNP-S, PF, 100 mcg/0.5mL dose or 50 mcg/0.25mL dose 1 completed Not Available [facility] 02/12/2025 13:42:26 Influenza, split virus, quadrivalent, PF 1 completed Not Available [facility] 02/12/2025 13:42:26 COVID-19, mRNA, LNP-S, PF, 100 mcg/0.5mL dose or 50 mcg/0.25mL dose 1 completed Not Available [facility] 02/12/2025 13:42:26 Influenza, split virus, quadrivalent, PF 2 completed Not Available [facility] 02/12/2025 13:42:26 Influenza, split virus, quadrivalent, PF 3 completed Not Available [facility] 02/12/2025 13:42:26 Influenza, split virus, trivalent, preservative 4 completed Not Available [facility] 02/12/2025 13:42:26 Past Encounters Encounter ID Performer Location Encounter Start Date Encounter Closed Date Diagnosis/Indication Diagnosis SNOMED-CT Code Diagnosis ICD10 Code Diagnosis IMO Codes Diagnosis Note [id number] Chris Parker DO [facility]) [address] [place] [address] 01/15/2025 12:18:30 01/17/2025 08:49:31 Type 1 diabetes mellitus 96577345 E10.9 Hepatosplenomegaly 66500 000 R16.2 14912 Pneumonia 344402246 J18. 9 [id number] Chris Parker DO [facility] ([facility]) [address] [place] [address] 01/18/2025 09:41:48 01/23/2025 16:25:08 [id number] Chris Parker DO [facility] ([facility] [address]) [address] [place] [address] 01/22/2025 15:25:32 01/24/2025 09:26:09 Congestive heart failure 10531659 I50.9 Type 1 brad betes mellitus 05696430 E10.9 Hepatosplenomegaly 88319 000 R16.2 67244 [id number] Chris Parker DO [facility] ([facility] [address] [facility]) [address] [place] [address] 02/05/2025 14:15:56 02/06/2025 16:50:40 Hepatosplenomegaly 36518707 R16.2 88012 Ascites 281151742 R18.8 540929 Pancytopenia 870496736 D 61.818 [id number] Chris Parker DO [facility] ([facility] [address] [facility]) [address] [place] [address] 02/08/2025 13:43:34 02/13/2025 12:53:21 Hyperglycemia due to type 2 diabetes mellitus 6824071523 36100 E11.65 Z79.4 Hepatosplenomegaly 08673 000 R16.2 61895 [id number] Chris Parker DO [facility] ([facility]) [address] [place] [address] 02/12/2025 13:42:12 02/14/2025 09:05:11 Post-discharge follow-up 568634223 Z09 836801 Essential hypertension 68764138 I10 Congestive heart failure 04497466 I50.9 Health Concerns Section Related Observation LastModified by Organization Detai ls LastModified Time None Recorded Concern Status LastModified by Organization Details LastModified Time None Recorded Payers Encounter Date Sequence Insurance Name Policy Number Policy Pate Covered Member ID Pate Member ID Guarantor Name 02/12/2025 1 [place] Marciano Alonso [id number] Marciano Alonso 02/12/2025 2 [place] Marciano Alonso [id number] Marciano Alonso Notes Date Note Type Note Provider Name and Address Organization Details Recorded Time 02/12/2025 text/html COPDReported by PatientHPI:For associated symptoms, patient reportsobesity. For onset/timing, patient reportsmultiple times per day. For duration, patient reportshas noted for years.ROS as noted in the HPI stayed in hospital over the weekend Chris Parker DO [address] [place] [address], [phone], [facility] 02/12/2025 15:44:36
--- OUTSIDE RECORDS SUMMARY | 2025-02-14 09:26 | XMS_ITS | Clinical Summary ---
Author Organization [facility] Address [address] [place] [address] Care Team Providers Care Brand Representative Name Role Phone Cuba Solano MD Primary Care Provider [phone] [phone] Allergies Active Allergy Reactions Criticality Noted Date [...] mL 30 x 1/2 Misc Syrg by [facility]Non-Drug; Combo Route) route. 100 Syringe 11 05/30/19 [...] hours. Active Water Liquid 1 Gallon by [facility]Non-Drug; Combo Route) route daily. 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 Gender Identity Not on file Sexual [...] HEMOGLOBIN A1C 6.9(H) 4.0 - 6.0 % [facility] Blood specimen (specimen) 10/11/2008 1:40 PM CDT 10/11/2008 1:41 PM CDT us Katie Acosta DO CHEMISTRY ORDERABLES Final Result Performing Organization Address [facility] Phone Number INTERFACE SYSTEM Refer to clinic/hospital department [facility] CLIA# [id number] [address] [place] [address] * (ABNORMAL) MICROALBUMIN, RANDOM URINE (09/27/2008 1:30 PM CDT) MICROALBUMIN, URINE 20(H) <20 MG/L [facility] Blood specimen (specimen) 09/27/2008 1:30 PM CDT 09/27/2008 1:31 PM CDT Katie Acosta DO URINE ORDERABLES Susanne l Result Performing Organization Address [facility] Phone Number INTERFACE SYSTEM Refer to clinic/hospital department [facility] CLIA# [id number] [address] [place] [address] * (ABNORMAL) LIPID PANEL (09/27/2008 1:30 PM CDT) CHOLESTEROL 196 100 - 200 MG/DL [facility] TRIGLYCERIDE 218(H) 0 - 150 MG/DL [facility] HDL 23(L) 40 - 60 MG/DL [facility] LDL CALCULATED 129(H) 58 - 100 MG/DL [facility] Comment: CALCULATED LDL REFERENCE: < 100 Optimal 100 - 129 Near Optimal 130 - 159 Borderline High > 160 High Risk CHOL/HDL RATIO 8.52(H) 3.43 - 4.97 RATIO [facility] Blood specimen (specimen) 09/27/2008 1:30 PM CDT 09/27/2008 1:31 PM CDT Katie Acosta DO CHEMISTRY ORDERABLES Final Result Performing Organization Address [facility] Phone Number INTERFACE SYSTEM Refer to clinic/hospital department [facility] CLIA# [id number] [address] [place] [address] from Last 3 Months or Most Recently Relevant to Health Maintenance Insurance MEDICARE PART A AND B MEDICAID [place] Advance Directives For more information, please contact: [phone] Documents on File Type Date Recorded Patient Middleware Solutions Architect Expl anation Advance Directive POA 01/20/2013 8:55 AM A dvance Directive POA Care Teams Brand Representative Relationship Specialty Start Date End Date Cuba Solano MD PCP - General 07/11/09
--- OUTSIDE RECORDS SUMMARY | 2025-02-14 09:26 | XMS_ITS | Encounter Summary ---
Author Organization [facility] Address [address] [place] [address] Care Team Providers Care Correctional Sergeant Name Role Phone Cuba Solano MD Primary Care Provider [phone] Encounter Details Date Type Department Care Team (Latest Contact Info) Description 10/02/2003 Outpatient Historical [facility] Family Medicine [place]ica [place] [id number] [address] Keyona Mccloud, LUCIEN NO ADDRESS ON FILE HYPERLIPIDEMIA NEC/NOS (Primary Dx) Social History Tobacco Use Types Packs/Day Years Used Date Smoking Tobacco: Never Assessed Sex and Gender Information Value Date Recorded Sex Assigned at Not on file Legal 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
--- OUTSIDE RECORDS SUMMARY | 2025-02-14 09:26 | XMS_ITS | Encounter Summary ---
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
--- OUTSIDE RECORDS SUMMARY | 2025-02-14 09:26 | XMS_ITS | Encounter Summary ---
Author Organization 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
--- OUTSIDE RECORDS SUMMARY | 2025-02-14 09:26 | XMS_ITS | Encounter Summary ---
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
--- OUTSIDE RECORDS SUMMARY | 2025-02-14 09:26 | XMS_ITS | Encounter Summary ---
Author Organization [facility] Address [address] [place] [address] Care Team Providers Care Repairer Helper Name Role Phone Cuba Solano MD Primary Care Provider +1 [phone] Encounter Details Date Type Department Care Team (Late st Contact Info) Description 06/20/2007 Outpatient Historical [facility] Family Medicine [place] [id number] [address] Keyona Mccloud, ACCOUNTING MANAGER CONTROLLER NO ADDRESS ON FILE Social History Tobacco Use Types Packs/Day Years Used Date Smoking Tobacco: Never Assessed Sex and Gender Information Value Date Recorded Sex Assigned at Not on file Legal Sex Male 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
--- OUTSIDE RECORDS SUMMARY | 2025-02-14 09:26 | XMS_ITS | Encounter Summary ---
Author Organization [facility] Address [address] [place] [address] Care Team Providers Care Bonding Machine Tender Name Role Phone Cuba Solano MD Primary Care Provider +1 [phone] Encounter Details Date Type Department Care Team (Latest Contact Info) Description 07/14/2004 Outpatient Historical [facility] Family Medicine [place] [id number] [address] [address] Keyona Mccloud, LUCIEN NO ADDRESS ON FILE THRUSH (Primary Dx); JOINT PAIN-L/LEG Social History Tobacco Use Types Packs/Day Years Used Date Smoking Tobacco: Never Assessed Sex and Gender Information Value Date Recorded Sex Assigned at Not on file Legal 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
--- OUTSIDE RECORDS SUMMARY | 2025-02-14 09:26 | XMS_ITS | Encounter Summary ---
Author Organization [facility] Address [address] [place] [address] Care Team Providers Care Demurrage Clerk Name Role Phone Cuba Solano MD Primary Care Provider +1 [phone] Encounter Details Date Type Department Care Team (Latest Contact Info) Description 05/13/2004 Outpatient [facility] Family Medicine Angelica [address] [address] Donte Borrego MD NO ADDRESS ON FILE DIABETES MELLITUS TYPE II UNCONTR UNCOMPL (Primary Dx); Benign hypertension; Dermatitis due to plant Social History Tobacco Use Types Packs/Day Years Used Date Smoking Tobacco: Never Assessed Sex and Gender Information Value Date Recorded Sex Assigned at Not on file Legal Sex Male 2: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 PE Gender Identity Not on file Sexual Orientation [...] food) documented in this encounter Care Teams Demurrage Clerk Relationship Specialty Start Date End Date Cuba Solano MD PCP - General 07/11/09 documented as of this encounter
--- OUTSIDE RECORDS SUMMARY | 2025-02-14 09:27 | XMS_ITS | Encounter Summary ---
Author Organization [facility] Address [address] [place] [address] Care Team Providers Care Metal Container Maker Name Role Phone Cuba Solano MD Primary Care Provider +1 [phone] Encounter Details Date Type Department Care Team (Late st Contact Info) Description 08/15/1999 Outpatient Historical [facility] Social History Tobacco Use Types Packs/Day Years Used Date Smoking Tobacco: Never Assessed Sex and Gender Information Value Date Recorded Sex Assigned at Not on file Legal Sex Male 2:49 AM RECORD LIBRARIAN Gender Identity Not on file Sexual Orientation Not on file documented as of this encounter Plan of Treatment Not on file documented as of this encounter Visit Diagnoses Not on filedocumented in this encounter Care Teams Metal Container Maker Relationship Specialty Start Date End Date Cuba Solano MD PCP - General 07/11/09 documented as of this encounter
--- OUTSIDE RECORDS SUMMARY | 2025-02-14 09:27 | XMS_ITS | Encounter Summary ---
Author Organization [facility] Address [address] [place] [address] Care Team Providers Care Central Office Equipment Installer Name Role Phone Cuba Solano MD Primary Care Provider +1 [phone] Encounter Details Date Type Department Care Team (Latest Contact Info) Description 01/07/2000 Outpatient Historical [facility] Family Medicine Angelica [address] [address] Donte Borrego MD NO ADDRESS ON FILE Other abnormal clinical finding (Primary Dx); Encounter for long-term (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 of other medications; Unspecified essential hypertension Social History Tobacco Use Types Packs/Day Years Used Date Smoking Tobacco: Never Assessed Sex and Gender Information Value Date Recorded Sex Assigned at Not on file Legal Sex Male 2:49 AM ROLL FORGER Gender Identity Not on file Sexual Orientation Not on file documented as of this encounter Plan of Treatment Not on file documented as of this encounter Visit Diagnoses Diagnosis Other abnormal clinical finding- Primary Encounter for long-term (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 of other medications Unspecified essential hypertension documented in this encounter Care Teams Central Office Equipment Installer Relationship Specialty Start Date End Date Cuba Solano MD PCP - General 07/11/09 documented as of this encounter
--- OUTSIDE RECORDS SUMMARY | 2025-02-14 09:27 | XMS_ITS | Encounter Summary ---
Author Organization [facility] Address [address] [place] [address] Care Team Providers Care Solar Process Engineer Name Role Phone Cuba Solano MD Primary Care Provider +1 [phone] Encounter Details Date Type Department Care Team (Latest Contact Info) Description 08/15/1999 Outpatient Historical [facility] Moi George MD [address] [place] [address] Nonspecific abnormal results of liver function study (Primary Dx); Esophageal reflux; Unspecified hemorrhoids 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 Social History Tobacco Use Types Packs/Day Years Used Date Smoking Tobacco: Never Assessed Sex and Gender Information Value Date Recorded Sex Assigned at Not on file Legal Sex Male 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
--- OUTSIDE RECORDS SUMMARY | 2025-02-14 09:27 | XMS_ITS | Encounter Summary ---
Author Organization [facility] Address [address] [place] [address] Care Team Providers Care Support Engineer Name Role Phone Cuba Solano MD Primary Care Provider +1 [phone] Encounter Details Date Type Department Care Team (Late st Contact Info) Description 02/07/2008 Outpatient Historical [facility] [address] [place] [address] [place] [address] Per Perea NP [address] [place] [address] Social History Tobacco Use Types Packs/Day Years Used Date Smoking Tobacco: Never Assessed Cigarettes Smokeless Tobacco: Current Chew Alcohol Use Standard Drinks/Week Comments No 0 (1 standard drink = 0.6 oz pur e alcohol) Sex and Gender Information Value Date Recorded Sex Assigned at Not on file Legal Sex Male 2:49 AM PLUMBING INSTALLER Gender Identity Not on file Sexual Orientation Not on file documented as of this encounter Plan of Treatment Not on file documented as of this encounter Visit Diagnoses Not on filedocumented in this encounter Care Teams Support Engineer Relationship Specialty Start Date End Date Cuba Solano MD PCP - General 07/11/09 documented as of this encounter
--- OUTSIDE RECORDS SUMMARY | 2025-02-14 09:27 | XMS_ITS | Encounter Summary ---
Author Organization [facility] Address [address] [place] [address] Care Team Providers Care Wrap Checker Name Role Phone Cuba Solano MD Primary Care Provider +1 [phone] Encounter Details Date Type Department Care Team (Late st Contact Info) Description 07/07/[address] [facility] Family Medicine [place] [id number] [address] [address] Social History Tobacco Use Types Packs/Day Years Used Date Smoking Tobacco: Never Assessed Sex and Gender Information Value Date Recorded Sex Assigned at Not on file Legal Sex Male 2:49 AM SUPERVISOR [employer]ODU[employer] Gender Identity Not on file Sexual Orientation Not on file documented as of this encounter Plan of Treatment Not on file documented as of this encounter Visit Diagnoses Not on filedocumented in this encounter Care Teams Wrap Checker Relationship Specialty Start Date End Date Cuba Solano MD PCP - General 07/11/09 documented as of this encounter
--- OUTSIDE RECORDS SUMMARY | 2025-02-14 09:27 | XMS_ITS | Encounter Summary ---
Author Organization [facility] Address [address] [place] [address] Care Team Providers Care Hedge Fund Trader Name Role Phone Cuba Solano MD Primary Care Provider +1 [phone] Encounter Details Date Type Department Care Team (Latest Contact Info) Description 07/11/1999 Outpatient Historical [facility] Family Medicine [place] 253542 [address] [address] Donte Borrego MD NO ADDRESS ON FILE Unspecified essential hypertension (Primary Dx); Other convulsions; Allergy, unspecified not elsewhere classified Social History Tobacco Use Types Packs/Day Years Used Date Smoking Tobacco: Never Assessed Sex and Gender Information Value Date Recorded Sex Assigned at Not on file Legal Sex Male 2:49 AM DUMP GRADER Gender Identity Not on file Sexual Orientation Not on file documented as of this encounter Plan of Treatment Not on file documented as of this encounter Visit Diagnoses Diagnosis Unspecified essential hypertension- Primary Other convulsions Allergy, unspecified not elsewhere classified documented in this encounter Care Teams Hedge Fund Trader Relationship Specialty Start Date End Date Cuba Solano MD PCP - General 07/11/09 documented as of this encounter
--- OUTSIDE RECORDS SUMMARY | 2025-02-14 09:27 | XMS_ITS | Encounter Summary ---
Author Organization [facility] Address [address] [place] [address] Care Team Providers Care Direct Marketing Coordinator Name Role Phone Cuba Solano MD Primary Care Provider +1 [phone] Encounter Details Date Type Department Care Team (Latest Contact Info) Description 11/21/2004 Outpatient Historical [facility] Family Medicine [place] 3[address]82 [address] [address] Keyona Mccloud, LUCIEN NO ADDRESS ON FILE Pain in limb (Primary Dx) Social History Tobacco Use Types Packs/Day Years Used Date Smoking Tobacco: Never Assessed Sex and Gender Information Value Date Recorded Sex Assigned at Not on file Legal Sex Male 2:49 AM SERVICE LINE LAYER Gender Identity Not on file Sexual Orientation Not on file documented as of this encounter Plan of Treatment Not on file documented as of this encounter Visit Diagnoses Diagnosis Pain in limb- Primary Pain in soft tissues of limb documented in this encounter Care Teams Direct Marketing Coordinator Relationship Specialty Start Date End Date Cuba Solano MD PCP - General 07/11/09 documented as of this encounter
--- OUTSIDE RECORDS SUMMARY | 2025-02-14 09:27 | XMS_ITS | Encounter Summary ---
Author Organization [facility] Address [address] [place] [address] Care Team Providers Care Digital Librarian Name Role Phone Cuba Solano MD Primary Care Provider +1 [phone] Encounter Details Date Type Department Care Team (Latest Contact Info) Description 12/30/2006 Outpatient Historical [facility] Family Medicine [place] [address] [address] Keyona Mccloud FNP NO ADDRESS ON FILE DM w/o Complication Type II (CMS/[facility]) (Primary Dx); Allergy, Unspecified not Elsewhere Classified; Unspecified Otitis Media; Neuropathy in Diabetes Social History Tobacco Use Types Packs/Day Years Used Date Smoking Tobacco: Never Assessed Sex and Gender Information Value Date Recorded Sex Assigned at Not on file Legal Sex Male 2:49 AM REGIONAL CONTROLLER Gender Identity Not on file Sexual [...] diabetes documented in this encounter Care Teams Digital Librarian Relationship Specialty Start Date End Date Cuba Solano MD PCP - General 07/11/09 documented as of this encounter
--- OUTSIDE RECORDS SUMMARY | 2025-02-14 09:27 | XMS_ITS | Encounter Summary ---
Author Organization [facility] Address [address] [place] [address] Care Team Providers Care Registration Scheduling Specialist Name Role Phone Cuba Solano MD Primary Care Provider +1 [phone] Encounter Details Date Type Department Care Team (Latest Contact Info) Description 11/26/2004 Outpatient Historical [facility]- [address] [place] [address] [place] [address] Ash Lopez III, MD [address] [place] [address] LOC PRIM OSTEOART-L/LEG (Primary Dx) Social History Tobacco Use Types Packs/Day Years Used Date Smoking Tobacco: Never Assessed Sex and Gender Information Value Date Recorded Sex Assigned at Not on file Legal Sex Male 2:49 AM FISHER MUSSEL Gender Identity Not on file Sexual Orientation Not on file documented as of this encounter Plan of Treatment Not on file documented as of this encounter Visit Diagnoses Diagnosis Primary localized osteoarthrosis, lower leg- Primary documented in this encounter Care Teams Registration Scheduling Specialist Relationship Specialty Start Date End Date Cuba Solano MD PCP - General 07/11/09 documented as of this encounter
--- OUTSIDE RECORDS SUMMARY | 2025-02-14 09:27 | XMS_ITS | Encounter Summary ---
Author Organization [facility] Address [address] [place] [address] Care Team Providers Care Land Acquisition Specialist Name Role Phone Cuba Solano MD Primary Care Provider +1 [phone] Encounter Details Date Type Department Care Team (Latest Contact Info) Description 07/18/2004 Outpatient Historical [facility] Family Medicine [place] 09[address]42 [address] [address] Keyona Mccloud, LUCIEN NO ADDRESS ON FILE ORAL APHTHAE (Primary Dx); DYSPHAGIA Social History Tobacco Use Types Packs/Day Years Used Date Smoking Tobacco: Never Assessed Sex and Gender Information Value Date Recorded Sex Assigned at Not on file Legal Sex Male 2:49 AM EVP STRATEGY Gender Identity Not on file Sexual Orientation Not on file documented as of this encounter Plan of Treatment Not on file documented as of this encounter Visit Diagnoses Diagnosis Oral aphthae- Primary Dysphagia documented in this encounter Care Teams Land Acquisition Specialist Relationship Specialty Start Date End Date Cuba Solano MD PCP - General 07/11/09 documented as of this encounter
--- OUTSIDE RECORDS SUMMARY | 2025-02-14 09:27 | XMS_ITS | Encounter Summary ---
Author Organization [facility] Address [address] [place] [address] Care Team Providers Care Metal Coater Operator Name Role Phone Cuba Solano MD Primary Care Provider +1 -[phone] Encounter Details Date Type Department Care Team (Latest Contact Info) Description 10/06/1999 Outpatient Historical [facility] Family Medicine [place] 0[address] [address] Donte Borrego MD NO ADDRESS ON FILE Esophageal reflux (Primary Dx); Other and unspecified hyperlipidemia; Unspecified essential hypertension; Nonspecific abnormal results of liver function study Social History Tobacco Use Types Packs/Day Years Used Date Smoking Tobacco: Never Assessed Sex and Gender Information Value Date Recorded Sex Assigned at Not on file Legal Sex Male 2:49 AM LINE O SCRIBE OPERATOR Gender Identity Not on file Sexual Orientation Not on file documented as of this encounter Plan of Treatment Not on file documented as of this encounter Visit Diagnoses Diagnosis Esophageal reflux- Primary Other and unspecified hyperlipidemia Unspecified essential hypertension Nonspecific abnormal results of liver function study documented in this encounter Care Teams Metal Coater Operator Relationship Specialty Start Date End Date Cuba Solano MD PCP - General 07/11/09 documented as of this encounter
--- OUTSIDE RECORDS SUMMARY | 2025-02-14 09:27 | XMS_ITS | Encounter Summary ---
Author Organization [facility] Address [address] [facility] Attn: [place] [address] Care Team Providers Care Supervisor Records Change Name Role Phone Cuba Solano MD Primary Care Provider +1 [phone] Encounter Details Date Type Department Care Team (Late st Contact Info) Description 09/10/1999 Outpatient Historical Moi George MD [address] [place] [address] Social History Tobacco Use Types Packs/Day Years Used Date Smoking Tobacco: Never Assessed Sex and Gender Information Value Date Recorded Sex Assigned at Not on file Legal Sex Male 2:49 AM CHEMICAL STRENGTH TESTER Gender Identity Not on file Sexual Orientation Not on file documented as of this encounter Plan of Treatment Not on file documented as of this encounter Visit Diagnoses Not on filedocumented in this encounter Care Teams Supervisor Records Change Relationship Specialty Start Date End Date Cuba Solano MD PCP - General 07/11/09 documented as of this encounter
--- OUTSIDE RECORDS SUMMARY | 2025-02-14 09:27 | XMS_ITS | Encounter Summary ---
Author Organization [facility] Address [address] [place] [address] Care Team Providers Care Tray Packer Name Role Phone Cuba Solano MD Primary Care Provider +1 -[phone] Encounter Details Date Type Department Care Team (Late st Contact Info) Description 03/07/2007 Outpatient Historical [place] [address] [place] [address] Celso Calvert MD [address] [place] [id number] Social History Tobacco Use Types Packs/Day Years Used Date Smoking Tobacco: Never Assessed Sex and Gender Information Value Date Recorded Sex Assigned at Not on file Legal Sex Male 2:49 AM DEHORNER Gender Identity Not on file Sexual Orientation Not on file documented as of this encounter Plan of Treatment Not on file documented as of this encounter Visit Diagnoses Not on filedocumented in this encounter Care Teams Tray Packer Relationship Specialty Start Date End Date Cuba Solano MD PCP - General 07/11/09 documented as of this encounter
--- OUTSIDE RECORDS SUMMARY | 2025-02-14 09:27 | XMS_ITS | Encounter Summary ---
Author Organization [facility] Address [address] [place] [address] Care Team Providers Care Research Environmental Scientist Name Role Phone Cuba Solano MD Primary Care Provider +1 -[phone] Encounter Details Date Type Department Care Team (Late st Contact Info) Description 12/02/2004 Outpatient Historical [facility] Family Medicine [place] 0[address] [address] Social History Tobacco Use Types Packs/Day Years Used Date Smoking Tobacco: Never Assessed Sex and Gender Information Value Date Recorded Sex Assigned at Not on file Legal Sex Male 2:49 AM BACK END ENGINEER Gender Identity Not on file Sexual Orientation Not on file documented as of this encounter Plan of Treatment Not on file documented as of this encounter Visit Diagnoses Not on filedocumented in this encounter Care Teams Research Environmental Scientist Relationship Specialty Start Date End Date Cuba Solano MD PCP - General 07/11/09 documented as of this encounter
--- OUTSIDE RECORDS SUMMARY | 2025-02-14 09:27 | XMS_ITS | Encounter Summary ---
Author Organization [facility] Address [address] [place] [address] Care Team Providers Care Ocean Freight Agent Name Role Phone Cuba Solano MD Primary Care Provider +1 -[phone] Encounter Details Date Type Department Care Team (Latest Contact Info) Description 12/10/2006 Outpatient Historical [facility] Orthopedics- [address] [address] [address] [place] [address] Ash Lopze III, MD [address] [place] [address] Pain in Joint, Lower Leg (Primary Dx); Muscular Wasting and Disuse Atrophy, not Elsewhere Classified; Lower Limb Amputation, Above Knee (CMS/HCC) Social History Tobacco Use Types Packs/Day Years Used Date Smoking Tobacco: Never Assessed Sex and Gender Information Value Date Recorded Sex Assigned at Not on file Legal Sex Male 2:49 AM SOLAR INSTALLER Gender Identity Not on file Sexual Orientation Not on file documented as of this encounter Plan of Treatment Not on file documented as of this encounter Visit Diagnoses Diagnosis Pain in joint, lower leg- Primary Muscular wasting and disuse atrophy, not elsewhere classified Lower limb amputation, above knee documented in this encounter Care Teams Ocean Freight Agent Relationship Specialty Start Date End Date Cuba Solano MD PCP - General 07/11/09 documented as of this encounter
--- OUTSIDE RECORDS SUMMARY | 2025-02-14 09:27 | XMS_ITS | Encounter Summary ---
Author Organization [facility] Address [address] [facility] Attn: [place] [address] Care Team Providers Care Director Of Student Aid Name Role Phone Cuba Solano MD Primary Care Provider +1 [phone] Encounter Details Date Type Department Care Team (Late st Contact Info) Description 01/08/2000 Outpatient Historical Donte Borrego MD NO ADDRESS ON FILE Social History Tobacco Use Types Packs/Day Years Used Date Smoking Tobacco: Never Assessed Sex and Gender Information Value Date Recorded Sex Assigned at Not on file Legal Sex Male 2:49 AM STRING CUTTER Gender Identity Not on file Sexual Orientation Not on file documented as of this encounter Plan of Treatment Not on file documented as of this encounter Visit Diagnoses Not on filedocumented in this encounter Care Teams Director Of Student Aid Relationship Specialty Start Date End Date Cuba Solano MD PCP - General 07/11/09 documented as of this encounter
--- OUTSIDE RECORDS SUMMARY | 2025-02-14 09:27 | XMS_ITS | Encounter Summary ---
Author Organization [facility] Address [address] [place] [address] Care Team Providers Care Machinist Class B Name Role Phone Cuba Solano MD Primary Care Provider +1 [phone] Encounter Details Date Type Department Care Team (Latest Contact Info) Description 11/18/2004 Outpatient Historical [facility] Orthopedics- [address] [address] [place] [address] Ash Lopez III, MD [address] [place] [address] LOC PRIM OSTEOART-L/LEG (Primary Dx) Social History Tobacco Use Types Packs/Day Years Used Date Smoking Tobacco: Never Assessed Sex and Gender Information Value Date Recorded Sex Assigned at Not on file Legal Sex Male 2:49 AM WELFARE DIRECTOR Gender Identity Not on file Sexual Orientation Not on file documented as of this encounter Plan of Treatment Not on file documented as of this encounter Visit Diagnoses Diagnosis Primary localized osteoarthrosis, lower leg- Primary documented in this encounter Care Teams Machinist Class B Relationship Specialty Start Date End Date Cuba Solano MD PCP - General 07/11/09 documented as of this encounter
--- OUTSIDE RECORDS SUMMARY | 2025-02-14 09:27 | XMS_ITS | Encounter Summary ---
Author Organization [facility] Address [address] [place] [address] Care Team Providers Care Serology Technician Name Role Phone Cuba Solano MD Primary Care Provider +1 [phone] Encounter Details Date Type Department Care Team (Latest Contact Info) Description 09/10/1999 Outpatient Historical [facility] Moi George MD [address] [place] [address] Esophageal reflux (Primary Dx); Diaphragmatic hernia Social History Tobacco Use Types Packs/Day Years Used Date Smoking Tobacco: Never Assessed Sex and Gender Information Value Date Recorded Sex Assigned at Not on file Legal Sex Male 2:49 AM SERVER ASSISTANT Gender Identity Not on file Sexual Orientation Not on file documented as of this encounter Plan of Treatment Not on file documented as of this encounter Visit Diagnoses Diagnosis Esophageal reflux- Primary Diaphragmatic hernia Diaphragmatic hernia without mention of obstruction or gangrene documented in this encounter Care Teams Serology Technician Relationship Specialty Start Date End Date Cuba Solano MD PCP - General 07/11/09 documented as of this encounter
--- OUTSIDE RECORDS SUMMARY | 2025-02-14 09:27 | XMS_ITS | Encounter Summary ---
Author Organization [facility] Address [address] [place] [address] Care Team Providers Care Assistant Credit Manager Name Role Phone Cuba Solano MD Primary Care Provider +1 [phone] Encounter Details Date Type Department Care Team (Late st Contact Info) Description 09/02/2004 Outpatient Historical [facility] Family Medicine [place]ica [place] [address] [address] Social History Tobacco Use Types Packs/Day Years Used Date Smoking Tobacco: Never Assessed Sex and Gender Information Value Date Recorded Sex Assigned at Not on file Legal Sex Male 2:49 AM BOWLING PIN REFINISHER Gender Identity Not on file Sexual Orientation Not on file documented as of this encounter Plan of Treatment Not on file documented as of this encounter Visit Diagnoses Not on filedocumented in this encounter Care Teams Assistant Credit Manager Relationship Specialty Start Date End Date Cuba Solano MD PCP - General 07/11/09 documented as of this encounter
--- OUTSIDE RECORDS SUMMARY | 2025-02-14 09:27 | XMS_ITS | Encounter Summary ---
Author Organization [facility] Address [address] [place] [address] Care Team Providers Care Gas Meter Installer Helper Name Role Phone Cuba Solano MD Primary Care Provider +1 [phone] Encounter Details Date Type Department Care Team (Latest Contact Info) Description 08/15/1999 Outpatient Historical HIS [facility] [place] [address] [place] [address] Other convulsions (Primary Dx) Social History Tobacco Use Types Packs/Day Years Used Date Smoking Tobacco: Never Assessed Sex and Gender Information Value Date Recorded Sex Assigned at Not on file Legal Sex Male 2:49 AM PARACHUTE RIGGER Gender Identity Not on file Sexual Orientation Not on file documented as of this encounter Plan of Treatment Not on file documented as of this encounter Visit Diagnoses Diagnosis Other convulsions- Primary documented in this encounter Care Teams Gas Meter Installer Helper Relationship Specialty Start Date End Date Cuba Solano MD PCP - General 07/11/09 documented as of this encounter
--- OUTSIDE RECORDS SUMMARY | 2025-02-14 09:28 | XMS_ITS | Encounter Summary ---
Author Organization [facility] Address [address] [place] [address] Care Team Providers Care Child Care Sitter Name Role Phone Cuba Solano MD Primary Care Provider +1 [phone] Encounter Details Date Type Department Care Team (Late st Contact Info) Description 07/22/[address] 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
--- OUTSIDE RECORDS SUMMARY | 2025-02-14 09:28 | XMS_ITS | Encounter Summary ---
Author Organization [facility] Address [address] [place] [address] Care Team Providers Care General Purchasing Agent Name Role Phone Cuba Solano MD Primary Care Provider +1 [phone] Encounter Details Date Type Department Care Team (Late st Contact Info) Description 12/15/2007 Outpatient Historical [facility] Keyona Mccloud, LOCOMOTIVE REPAIRER DIESEL NO ADDRESS ON FILE Social History Tobacco Use Types Packs/Day Years Used Date Smoking Tobacco: Never Assessed Cigarettes Smokeless Tobacco: Current Chew Alcohol Use Standard Drinks/Week Comments No 0 (1 standard drink = 0.6 oz pur e alcohol) Sex and Gender Information Value Date Recorded Sex Assigned at Not on file Legal Sex Male 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
--- OUTSIDE RECORDS SUMMARY | 2025-02-14 09:28 | XMS_ITS | Encounter Summary ---
Author Organization [facility] Address [address] [place] [address] Care Team Providers Care Wildlife Rehabilitator Name Role Phone Cuba Solano MD Primary Care Provider +1 [phone] Encounter Details Date Type Department Care Team (Latest Contact Info) Description 12/03/1998 Outpatient Historical [facility] Family Medicine Angelica [place] [id number] [address] [address] Donte Borrego MD NO ADDRESS ON FILE Other and unspecified hyperlipidemia (Primary Dx); Acute conjunctivitis, unspecified; Unspecified essential hypertension; Allergy, unspecified not elsewhere classified Social History Tobacco Use Types Packs/Day Years Used Date Smoking Tobacco: Never Assessed Sex and Gender Information Value Date Recorded Sex Assigned at Not on file Legal Sex Male 2:49 AM 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
--- OUTSIDE RECORDS SUMMARY | 2025-02-14 09:28 | XMS_ITS | Encounter Summary ---
Author Organization [facility] Address [address] [place] [address] Care Team Providers Care It Application Development Manager Name Role Phone Cuba Solano MD Primary Care Provider +1 [phone] Encounter Details Date Type Department Care Team (Latest Contact Info) Description 09/11/2004 Outpatient Historical [facility] [place] 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
--- OUTSIDE RECORDS SUMMARY | 2025-02-14 09:28 | XMS_ITS | Clinical Summary ---
Author Organization [facility] Address [address] [place]: [place] [address] Care Team Providers Care Pattern Chart Writer Name Role Phone Cuba Solano MD Primary Care Provider +1 [phone] Allergies Active Allergy Reactions Criticality Noted Date [...] mention of complication, not stated as uncontrolled Encounters Date Type Department Care Team Description 02/05/2025 Orders Only [facility] [place] [facility]- [address] [place] [address] Chris Parker, Abdominal pain, unspecified abdominal location (Primary Dx) from Last 3 Months Immunizations Immunization Administration Dates Next Due (PNEUMOVAX [...] on file Legal Sex Male 5:38 AM 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
--- OUTSIDE RECORDS SUMMARY | 2025-02-14 09:28 | XMS_ITS | Encounter Summary ---
Author Organization [facility] Address [address] [place] [address] Care Team Providers Care Drier Attendant Name Role Phone Cuba Solano MD Primary Care Provider +1 [phone] Encounter Details Date Type Department Care Team (Latest Contact Info) Description 08/13/[address] 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
--- OUTSIDE RECORDS SUMMARY | 2025-02-14 09:28 | XMS_ITS | Encounter Summary ---
Author Organization [employer] [facility] Address [address] [place] [address] Care Team Providers Care Fundraising Assistant Name Role Phone Cuba Solano MD Primary Care Provider +1 -[phone] Encounter Details Date Type Department Care Team (Latest Contact Info) Description 02/19/1998 Outpatient Historical [facility] [place] [facility] Moi George MD [address] [place] [address] Benign joe lg bowel (Primary Dx); Unspecified hemorrhoids 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 Social History Tobacco Use Types Packs/Day Years Used Date Smoking Tobacco: Never Assessed Sex and Gender Information Value Date Recorded Sex Assigned at Not on file Legal Sex Male 2:49 AM BULB BRANDER Gender Identity Not on file Sexual Orientation Not on file documented as of this encounter Plan of Treatment Not on file documented as of this encounter Visit Diagnoses Diagnosis Benign joe lg bowel- Primary Benign neoplasm of colon Unspecified hemorrhoids 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 documented in this encounter Care Teams Fundraising Assistant Relationship Specialty Start Date End Date Cuba Solano MD PCP - General 07/11/09 documented as of this encounter
--- OUTSIDE RECORDS SUMMARY | 2025-02-14 09:28 | XMS_ITS | Encounter Summary ---
Author Organization [facility] Address [address] [place] [address] Care Team Providers Care Offal Trimmer Name Role Phone Cuba Solano MD Primary Care Provider +1 [phone] Encounter Details Date Type Department Care Team (Latest Contact Info) Description 10/21/2004 Outpatient Historical [facility] Family Medicine Angelica [facility] [address] [address] Huey Upton Jr., MD [address] [place] [address] 248 [facility] [address] [place] [address] ACUTE SINUSITIS NOS (Primary Dx) Social History Tobacco Use Types Packs/Day Years Used Date Smoking Tobacco: Never Assessed Sex and Gender Information Value Date Recorded Sex Assigned at Not on file Legal Sex Male 2:49 AM WOOD BARKER Gender Identity Not on file Sexual Orientation Not on file documented as of this encounter Plan of Treatment Not on file documented as of this encounter Visit Diagnoses Diagnosis Acute sinusitis, unspecified- Primary documented in this encounter Care Teams Offal Trimmer Relationship Specialty Start Date End Date Cuba Solano MD PCP - General 07/11/09 documented as of this encounter
--- OUTSIDE RECORDS SUMMARY | 2025-02-14 09:28 | XMS_ITS | Encounter Summary ---
Author Organization [facility] Address [address] [place] [address] Care Team Providers Care Hose Mender Name Role Phone Cuba Solano MD Primary Care Provider +1 [phone] Encounter Details Date Type Department Care Team (Latest Contact Info) Description 09/03/2004 Outpatient Historical [facility] Family Medicine Angelica [facility] [address] [address] Huey Upton Jr., MD [address] [place] [address] 248 [facility] [address] [place] [address] DIABETES MELLITUS TYPE II-UNCOMPL (CMS/HCC) (Primary Dx); JOINT PAIN-L/LEG Social History Tobacco Use Types Packs/Day Years Used Date Smoking Tobacco: Never Assessed Sex and Gender Information Value Date Recorded Sex Assigned at Not on file Legal Sex Male 2:49 AM PIE CUTTER Gender Identity Not on file Sexual Orientation Not on file documented as of this encounter Plan of Treatment Not on file documented as of this encounter Visit Diagnoses Diagnosis Type II or unspecified type diabetes mellitus 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, not stated as uncontrolled- Primary Pain in joint, lower leg documented in this encounter Care Teams Hose Mender Relationship Specialty Start Date End Date Cuba Solano MD PCP - General 07/11/09 documented as of this encounter
--- OUTSIDE RECORDS SUMMARY | 2025-02-14 09:28 | XMS_ITS | Encounter Summary ---
Author Organization [facility] Address [address] [place] [address] Care Team Providers Care Instructor Pilot Name Role Phone Cuba Solano MD Primary Care Provider +1 [phone] Encounter Details Date Type Department Care Team (Latest Contact Info) Description 01/29/1998 Outpatient Historical [facility] Family Medicine Angelica [address] [address] Donte Borrego MD NO ADDRESS ON FILE Unspecified suppurative otitis media (Primary Dx) Social History Tobacco Use Types Packs/Day Years Used Date Smoking Tobacco: Never Assessed Sex and Gender Information Value Date Recorded Sex Assigned at Not on file Legal 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
--- OUTSIDE RECORDS SUMMARY | 2025-02-14 09:28 | XMS_ITS | Encounter Summary ---
Author Organization [facility] Address [address] [place] [address] Care Team Providers Care Land Surveying Survey Worker Name Role Phone Cuba Solano MD Primary Care Provider +1 [phone] Encounter Details Date Type Department Care Team (Late st Contact Info) Description 09/21/2007 Outpatient Historical [facility] Keyona Mccloud, STEELSCOPE OPERATOR NO ADDRESS ON FILE Social History Tobacco Use Types Packs/Day Years Used Date Smoking Tobacco: Never Assessed Sex and Gender Information Value Date Recorded Sex Assigned at Not on file Legal Sex Male 2:49 AM BARTENDER Gender Identity Not on file Sexual Orientation Not on file documented as of this encounter Plan of Treatment Not on file documented as of this encounter Visit Diagnoses Not on filedocumented in this encounter Care Teams Land Surveying Survey Worker Relationship Specialty Start Date End Date Cuba Solano MD PCP - General 07/11/09 documented as of this encounter
--- OUTSIDE RECORDS SUMMARY | 2025-02-14 09:28 | XMS_ITS | Encounter Summary ---
Author Organization [facility] Address [address] [place] [address] Care Team Providers Care Carbon Brush Maker Name Role Phone Cuba Solano MD Primary Care Provider +1 -[phone] Encounter Details Date Type Department Care Team (Latest Contact Info) Description 02/19/1998 Outpatient Historical [facility] [place] [address] [place] [address] Other convulsions (Primary Dx) Social History Tobacco Use Types Packs/Day Years Used Date Smoking Tobacco: Never Assessed Sex and Gender Information Value Date Recorded Sex Assigned at Not on file Legal Sex Male 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
--- OUTSIDE RECORDS SUMMARY | 2025-02-14 09:28 | XMS_ITS | Encounter Summary ---
Author Organization [employer] [facility] Address [address] [place] [address] Care Team Providers Care Skid Adzer Name Role Phone Cuba Solano MD Primary Care Provider +1 -[phone] Encounter Details Date Type Department Care Team (Latest Contact Info) Description 01/15/1998 Outpatient Historical [facility] Moi George MD [address] [place] [address] Blood in stool (Primary Dx); Nonspecific abnormal results of liver function study Social History Tobacco Use Types Packs/Day Years Used Date Smoking Tobacco: Never Assessed Sex and Gender Information Value Date Recorded Sex Assigned at Not on file Legal 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
--- OUTSIDE RECORDS SUMMARY | 2025-02-14 09:28 | XMS_ITS | Encounter Summary ---
Author Organization [facility] Address [address] [place] [address] Care Team Providers Care Pocket Flap Creasing Machine Operator Name Role Phone Cuba Solano MD Primary Care Provider +1 -[phone] Encounter Details Date Type Department Care Team (Latest Contact Info) Description 04/08/1998 Outpatient Historical [facility] Family Medicine Angelica [address] [address] Donte Borrego MD NO ADDRESS ON FILE Generalized osteoarthrosis, unspecified site (Primary Dx); Nonspecific elevation of levels of transaminase or lactic acid dehydrogenase (LDH); Need vaccination-viral disease Social History Tobacco Use Types Packs/Day Years Used Date Smoking Tobacco: Never Assessed Sex and Gender Information Value Date Recorded Sex Assigned at Not on file Legal Sex Male 2:49 AM GALVANIZER Gender Identity Not on file Sexual Orientation [...] diseases documented in this encounter Care Teams Pocket Flap Creasing Machine Operator Relationship Specialty Start Date End Date Cuba Solano MD PCP - General 07/11/09 documented as of this encounter
--- OUTSIDE RECORDS SUMMARY | 2025-02-14 09:28 | XMS_ITS | Encounter Summary ---
Author Organization [facility] Address [address] [place] [address] Care Team Providers Care Strategic Partnership Manager Name Role Phone Cuba Solano MD Primary Care Provider +1 -[phone] Encounter Details Date Type Department Care Team (Late st Contact Info) Description 09/27/2007 Outpatient Historical [facility] Other, [facility] NO ADDRESS ON FILE Social History Tobacco Use Types Packs/Day Years Used Date Smoking Tobacco: Never Assessed Sex and Gender Information Value Date Recorded Sex Assigned at Not on file Legal Sex Male 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
--- OUTSIDE RECORDS SUMMARY | 2025-02-14 09:28 | XMS_ITS | Encounter Summary ---
Author Organization [facility] Address [address] [place] [address] Care Team Providers Care Time Cycle Operator Name Role Phone Cuba Solano MD Primary Care Provider +1 -[phone] Encounter Details Date Type Department Care Team (Latest Contact Info) Description 07/08/1998 Outpatient Historical [facility] Family Medicine Angelica [address] [address] Donte Borrego MD NO ADDRESS ON FILE Acute infection of pinna (Primary Dx); Acute perichondritis pinna; Malaise and fatigue; Other specified disorders of liver Social History Tobacco Use Types Packs/Day Years Used Date Smoking Tobacco: Never Assessed Sex and Gender Information Value Date Recorded Sex Assigned at Not on file Legal Sex Male 2:49 AM UX ARCHITECT Gender Identity Not on file Sexual Orientation Not on file documented as of this encounter Plan of Treatment Not on file documented as of this encounter Visit Diagnoses Diagnosis Acute infection of pinna- Primary Acute perichondritis pinna Acute perichondritis of pinna Malaise and fatigue Other specified disorders of liver documented in this encounter Care Teams Time Cycle Operator Relationship Specialty Start Date End Date Cuba Solano MD PCP - General 07/11/09 documented as of this encounter
--- OUTSIDE RECORDS SUMMARY | 2025-02-14 09:28 | XMS_ITS | Encounter Summary ---
Author Organization [facility] Address [address] [place] [address] Care Team Providers Care Central Stores Attendant Name Role Phone Cuba Solano MD Primary Care Provider [phone] Encounter Details Date Type Department Care Team (Latest Contact Info) Description 08/13/1998 Outpatient Historical [facility] Moi George MD [address] [place] [address] Abdominal pain, unspecified site (Primary Dx); Blood in stool; Esophageal reflux Social History Tobacco Use Types Packs/Day Years Used Date Smoking Tobacco: Never Assessed Sex and Gender Information Value Date Recorded Sex Assigned at Not on file Legal Sex Male 2: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
--- OUTSIDE RECORDS SUMMARY | 2025-02-14 09:28 | XMS_ITS | Encounter Summary ---
Author Organization [facility] Address [address] [place] [address] Care Team Providers Care Universal Branch Consultant Name Role Phone Cuba Solano MD Primary Care Provider [phone] Encounter Details Date Type Department Care Team (Latest Contact Info) Description 11/12/2004 Outpatient Historical [facility] 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
--- OUTSIDE RECORDS SUMMARY | 2025-02-14 09:28 | XMS_ITS | Encounter Summary ---
Author Organization [facility] Address [address] [place] [address] Care Team Providers Care Occupational Health Nurse Supervisor Name Role Phone Cuba Solano MD Primary Care Provider [phone] Encounter Details Date Type Department Care Team (Latest Contact Info) Description 06/17/1998 Outpatient Historical [facility] [place] [address] [address] Donte Borrego MD NO ADDRESS ON FILE Other abnormal clinical finding (Primary Dx) Social History Tobacco Use Types Packs/Day Years Used Date Smoking Tobacco: Never Assessed Sex and Gender Information Value Date Recorded Sex Assigned at Not on file Legal Sex Male 2:49 AM FLOUR DISTRIBUTOR Gender Identity Not on file Sexual Orientation Not on file documented as of this encounter Plan of Treatment Not on file documented as of this encounter Visit Diagnoses Diagnosis Other abnormal clinical finding- Primary documented in this encounter Care Teams Occupational Health Nurse Supervisor Relationship Specialty Start Date End Date Cuba Solano MD PCP - General 07/11/09 documented as of this encounter
--- OUTSIDE RECORDS SUMMARY | 2025-02-14 09:28 | XMS_ITS | Encounter Summary ---
Author Organization [facility] Address [address] [place] [address] Care Team Providers Care Forms Analysis Manager Name Role Phone Cuba Solano MD Primary Care Provider [phone] Encounter Details Date Type Department Care Team (Latest Contact Info) Description 10/08/1998 Outpatient Historical [facility] Family Medicine [place] [id number] [address] Donte Borrego MD NO ADDRESS ON FILE Esophageal reflux (Primary Dx); Unspecified essential hypertension; Unspecified disorder of liver Social History Tobacco Use Types Packs/Day Years Used Date Smoking Tobacco: Never Assessed Sex and Gender Information Value Date Recorded Sex Assigned at Not on file Legal Sex Male 2:49 AM STUDENT OUTREACH 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
--- OUTSIDE RECORDS SUMMARY | 2025-02-14 09:28 | XMS_ITS | Encounter Summary ---
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
--- OUTSIDE RECORDS SUMMARY | 2025-02-14 09:28 | XMS_ITS | Encounter Summary ---
Author Organization [facility] Address [address] [place] [address] Care Team Providers Care Webbing Supervisor Name Role Phone Cuba Solano MD Primary Care Provider [phone] Encounter Details Date Type Department Care Team (Late st Contact Info) Description 09/11/2004 Outpatient Historical [facility] [place] [address] 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
--- OUTSIDE RECORDS SUMMARY | 2025-02-14 09:28 | XMS_ITS | Encounter Summary ---
Author Organization [facility], [facility] Address [address] [place] [address] Phone Care Team Providers Care Science Instructor Name Role Phone Loren Canada MD Primary Care Provider [phone] Encounter Details Date Type Department Care Team (Late st Contact Info) Description 09/22/[address] [facility] [address] [facility] [address] [place] [address] Chronic kidney disease stage 3B [...] (HCC) documented in this encounter Care Teams Science Instructor Relationship Specialty Start Date End Date Loren Canada MD [address] [place], [place] [id number] PCP - General Family Medicine 09/22/22 documented as of this encounter
--- OUTSIDE RECORDS SUMMARY | 2025-02-14 09:29 | XMS_ITS | Encounter Summary ---
Author Organization 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
--- OUTSIDE RECORDS SUMMARY | 2025-02-14 09:29 | XMS_ITS | Encounter Summary ---
Author Organization [facility] Address [address] [place] [address] Care Team Providers Care Quantitative Analyst Developer Name Role Phone Cuba Solano MD Primary Care Provider [phone] Encounter Details Date Type Department Care Team (Latest Contact Info) Description 04/10/1999 Outpatient Historical [facility] Family Medicine [place] [address] [address] Donte Borrego MD NO ADDRESS ON FILE Unspecified essential hypertension (Primary Dx) Social History Tobacco Use Types Packs/Day Years Used Date Smoking Tobacco: Never Assessed Sex and Gender Information Value Date Recorded Sex Assigned at Not on file 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
--- OUTSIDE RECORDS SUMMARY | 2025-02-14 09:29 | XMS_ITS | Data Portability ---
Author Organization RASHEED Barboza [facility], [facility] Address [address] [place] [address] [place] [address] Assessment No assessment recorded. Plan of Treatment [...] Modified By Organization Details Last Modified Time 01/22/2025 [id number] Seen in the ER over the weekend and started on steroids for bronchitis/copd exacerbation. Still dyspneic. Signficant weight gain likely secondary to retained fluid. Will order outpatient diagnostic and therapeutic paracentesis. Planning for liver bx soon. Will refer to GI. Start lasix 40mg bid. Good discussion with sister about worsening health and results will not be fast. [email or web address] Not available 01/23/2025 14:49:40 02/05/2025 [id number] Abdomen worse. Leaking fluid. Planning to see oncology/hematolo gy today, plan to have liver biopsy tomorrow. Paracentesis in three days. Will add dose of metolazone today [email or web address] Not available 02/05/2025 15:12:52 02/08/2025 [id number] Planning to paracentesis today. Extremely abdominal swelling. Sugars too high, increase aspart to 60 units with meals. Planning to follow up next week. [email or web address] Not available 02/08/2025 14:32:28 02/12/2025 [id number] hospital records reviewed dehydrated from diarrhea; diuretics held no fluid on attempted paracentesis, but lots of fluid in skin of abdomen [email or web address] Not available 02/12/2025 15:44:23 Reason for Referral None Reported. Results Created Date Observation Date Name Description Value Unit Range Abnormal Flag Note LastModifiedBy Organization Detail LastModifiedTime 02/09/20 25 02/08/2025 teeteei ng/sparkle george tic resul t No observ ation record ed. [email or web address] [facility] [address] [place], [address], 02/12/2025 11:57:54 Result Notes None recorded. Problems Name Problem SNOMED Code Status Onset Date Resolution Date Notes Provider Name and Address Organization Details Recorded Time Essential hypertens ion 33478870 Active 2007 ESSENTIAL HYPERTENS ION; 8 2:16PM by Karla Joseph LPN, Office Visit; Promoted; acuity set as *; Not Available [facility] 3 03:17:47 Allergic rhinitis 81614659 Active 2007 ALLERGIC RHINITIS; 8 2:16PM by Karla Joseph LPN, Office Visit; Promoted; acuity set as *; Not Available [facility] 3 03:17:47 Persisten t insomnia 177171289 Active 2007 PERSISTEN T INSOMNIA; 8 2:16PM by Karla Joseph LPN, Office Visit; Promoted; acuity set as *; Not Available [facility] 3 03:17:52 Fracture of ankle 52098413 Active 2007 Ankle Fracture; 8 2:16PM by Karla Joseph LPN, Office Visit; Promoted; acuity set as *; Not Available [facility] 3 03:17:53 Peptic ulcer 10469970 Active 2007 PEPTIC ULCER; 8 2:16PM by Karla Joseph LPN, Office Visit; Promoted; acuity set as *; Not Available [facility] 3 03:17:53 Type 1 diabetes mellitus 07291655 Active 2007 DIABETES MELLITUS TYPE I; 8 2:16PM by Karla Joseph LPN, Office Visit; Promoted; acuity set as *; Not Available [facility] 3 03:17:58 Constipat ion 24844424 Active 2007 CONSTIPAT ION; 8 2:16PM by Karla Joseph LPN, Office Visit; Promoted; acuity set as *; Not Available [facility] 3 03:17:58 Amputated above knee 821199383 Active 2007 ABOVE KNEE AMPUTATIO N STATUS; 8 2:16PM by Karla Joseph LPN, Office Visit; Promoted; acuity set as *; Not Available [facility] 3 03:17:59 History of depressio n 309256968 Active 2007 DEPRESSIO N, NOS; 8 2:16PM by Karla Joseph LPN, Office Visit; Promoted; acuity set as *; Not Available [facility] 3 03:18:00 Hyperglyc emia due to type 2 diabetes mellitus 83159961654 9109 Active 2023 NATHANAEL tavarez [facility] 4 13:09:52 Chronic back pain greater than three months duration 35822657765 2 Active 2023 [facility] 15:23:19 Blepharit is of right eyelid 13972987647 9103 Active 2024 NATHANAEL tavarez [facility] 5 15:11:18 Congestiv e heart failure 93287487 Active 2024 NATHANAEL tavarez [facility] 5 16:21:48 Acute right otitis media 534389058 Active 2024 NATHANAEL tavarez [facility] 5 16:28:04 Pain of right shoulder joint 82709877224 840402 Active 2024 NATHANAEL tavarez [facility] 5 17:59:42 Hepatospl enomegaly 18290581 Active 2024 NATHANAEL tavarez, [facility] 5 14:35:12 Thrombocy topenic disorder 910080412 Active 2024 NATHANAEL tavarez, [facility] 5 14:35:13 Problem Notes None recorded. Medical Equipment None Reported. Allergies Allergen ID Allergen Name Allergen Category Reaction Reaction Severity Criticality Documentation Date Start Date Code Code System Note Provider Name and Address Organization Details Recorded Time 49891 Product containin g penicilli n (product) medicatio n Not available Not available Not available 11/28/2022 92983 8001 SNOMED Comme nt: Recor ded 09/01 2:16P M by Briseida Joseph LPN, Offic e Visit ; Domingo rubio; Shruthi wade ce: *; ; Not Available [facility] 3 02:25:17 Medications Name Sig Start Date [...] Recorded 8 2:43PM by Jory George CMT, Guicho lyn Summary; Refill Quantity: 0; Not Available Not [...] Address Organization Details Last Updated DateTime 5 466658. 51 g 90 /min 25 /min 98.7 [degF] 96 % 96 % 126/76 mm[Hg] [facility] 5 17:28:46 Date Recorded Body weight Heart rate Respiratory rate Body temperature Oxygen saturation Oxygen saturation in Arterial blood by Pulse oximetry Systolic And Diastolic Provider Name and Address Organization Details Last Updated DateTime 5 879867. 7 g 92 /min 20 /min 98.2 [degF] 93 % 93 % 102/61 mm[Hg] [facility] 5 14:31:47 Date Recorded Body weight Heart rate Respiratory rate Body temperature Oxygen saturation Oxygen saturation in Arterial blood by Pulse oximetry Systolic And Diastolic Provider Name and Address Organization Details Last Updated DateTime 5 131797. 58 g 74 /min 20 /min 98 [degF] 96 % 96 % 143/72 mm[Hg] [facility] 5 14:30:11 Date Recorded Body weight Heart rate Respiratory rate Body temperature Oxygen saturation Oxygen saturation in Arterial blood by Pulse oximetry Systolic And Diastolic Provider Name and Address Organization Details Last Updated DateTime 5 135668. 69 g 112 /min 16 /min 98.2 [degF] 97 % 97 % 160/85 mm[Hg] [facility] 5 14:34:17 Social History None recorded. Functional Status None recorded. Mental Status None recorded. Family History Nothing Reported. Medical History No medical history recorded. Immunizations Vaccine Type Date Status Note Provider Nam e and Address Organization Details Recorded Time influenza, unspecified formulation 8 completed Not Available [facility] 02/12/2025 13:42:26 Influenza, split virus, trivalent, preservative 0 completed Not Available [facility] 02/12/2025 13:42:26 COVID-19, mRNA, LNP-S, PF, 100 mcg/0.5mL dose or 50 mcg/0.25mL dose 1 completed Not Available [facility] 02/12/2025 13:42:26 COVID-19, mRNA, LNP-S, PF, 100 mcg/0.5mL dose or 50 mcg/0.25mL dose 1 completed Not Available [facility] 02/12/2025 13:42:26 Influenza, split virus, quadrivalent, PF 1 completed Not Available [facility] 02/12/2025 13:42:26 COVID-19, mRNA, LNP-S, PF, 100 mcg/0.5mL dose or 50 mcg/0.25mL dose 1 completed Not Available [facility] 02/12/2025 13:42:26 Influenza, split virus, quadrivalent, PF 2 completed Not Available [facility] 02/12/2025 13:42:26 Influenza, split virus, quadrivalent, PF 3 completed Not Available [facility] 02/12/2025 13:42:26 Influenza, split virus, trivalent, preservative 4 completed Not Available [facility] 02/12/2025 13:42:26 Past Encounters Encounter ID Performer Location Encounter Start Date Encounter Closed Date Diagnosis/Indication Diagnosis SNOMED-CT Code Diagnosis ICD10 Code Diagnosis IMO Codes Diagnosis Note [id number] Chris Parker DO [facility] ([facility]) [address] [place] [address] 5 02/29/2024 08:37:45 02/29/2024 15:46:46 Chronic obstructive pulmonary disease 76800683 J44.9 Amputated above knee 299 503462 Z89.619 left Essential hypertension 09449235 I10 Hyperglyce jaleel due to type 2 diabetes mellitus 3732701928 59451 E11.65 [id number] Chris Parker DO [facility] ([facility]) [address] [place] [address] 5 03/14/2024 13:21:57 03/14/2024 16:53:47 Candidiasis of skin 64048443 B37.2 [id number] Chris Parker DO [facility] ([facility]) [address] [place] [address] 5 04/11/2024 08:16:14 04/17/2024 11:22:39 History of depression 983307853 Z86.59 Amputated above knee 299 756197 Z89.619 left Hyperglyce jaleel due to type 2 diabetes mellitus 1404824572 08722 E11.65 [id number] Chris Parker DO [facility] ([facility]) [address] [place], [place] [address] 05/08/2024 14:42:28 05/09/2024 14:13:27 History of depression 097847572 Z86.59 Hyperglyce jaleel due to type 2 diabetes mellitus 0805647187 46408 E11.65 Amputated above knee 299 343130 Z89.619 left [id number] Chris Parker DO [facility] ([facility]) [address] [place], [place] [address] 05/23/2024 13:28:32 05/25/2024 13:20:49 Hyperglycemia due to type 2 diabetes mellitus 1654364449 69016 E11.65 Blephariti s of right eyelid 1262706643 12486 H01.361 [id number] Chris Parker DO [facility] ([facility]) [address] [place] [address] 5 06/05/2024 14:01:27 06/07/2024 12:06:41 History of depression 688335420 Z86.59 Congestive heart failure 16119461 I50.9 Amputated above knee 299 158984 Z89.619 left Essential hypertension 17435670 I10 Hyperglyce jaleel due to type 2 diabetes mellitus 7901158034 77450 E11.65 Persistent insomnia 9 79234 G47.00 [id number] Chris Parker DO [facility] ([facility]) [address] [place] [address] 5 06/15/2024 14:42:28 06/22/2024 06:57:36 Persistent insomnia 162903297 G47.00 Hyperglyce jaleel due to type 2 diabetes mellitus 2127546041 77743 E11.65 Congestive heart failure 49216386 I50.9 Visual disturbance 24939 001 H53.9 Viral syndrome 435920345 B34.9 [id number] Chris Parker DO [facility] ([facility]) [address] [place], [place] [address] 06/19/2024 14:32:25 06/27/2024 07:52:53 Congestive heart failure 82856937 I50.9 [id number] Chris Parker DO [facility] ([facility]) [address] [place], [place] [address] 07/17/2024 14:49:03 07/19/2024 06:58:14 History of depression 601650949 Z86.59 Persistent insomnia 1919 18403 G47.00 Impacted c erumen in right ear 8755642164 918053 H61.21 Middle ear effusion 1004 948491 H74.8X9 left [id number] Chris Parker DO [facility] ([facility]) [address] [place], [place] [address] 2024 13:12:54 07/25/2024 07:05:48 Acute right otitis media 872439816 H66.91 Dysuria 84571477 R30.0 [id number] Chris Parker [facility] ([facility]) [address] [place], [place] [address] 08/14/2024 13:21:30 08/23/2024 07:50:54 Hyperglycemia due to type 2 diabetes mellitus 2856815086 44102 E11.65 Congestive heart failure 62169533 I50.9 Amputated above knee 299 584724 Z89.619 left [id number] Chris Parker DO [facility] ([facility]) [address] [place], [place] [address] 09/04/2024 08:10:50 09/10/2024 09:07:59 Chronic pain of right upper limb 1125503659 3402559 M25.511 G89.29 [id number] Chris Parker [facility] ([facility]) [address] [place], [place] [address] 10/09/2024 10:23:33 10/17/2024 15:32:18 History of depression 778329531 Z86.59 Hyperglyce jaleel due to type 2 diabetes mellitus 8981315072 64145 E11.65 Congestive heart failure 41274059 I50.9 Chronic ba ck pain greater than three months duration 9910066244 02 G89.29 Thrombocyt openic disorder 557726172 D69.6 31777 [id number] Chris Parker DO [facility] ([facility]) [address] [place] [address]65-291 5 10/30/2024 14:46:31 11/01/2024 11:47:18 History of depression 164327119 Z86.59 Hyperglyce jaleel due to type 2 diabetes mellitus 6377842157 E11.65 Congestive heart failure 94336332 I50.9 [id number] Chris Parker DO [facility] ([facility]) [address] [place], [place] [address] 11/02/2024 08:05:32 11/07/2024 08:24:49 Pain of right shoulder joint 7266698044 1369810 M25.511 [id number] Chris Parker DO [facility] ([facility]) [address] [place], [place] [address] 11/23/2024 11:52:48 12/06/2024 08:38:17 Pain of right shoulder joint 5875206506 9648541 M25.511 154729 Supraspinatus tear 30909 6004 M75.101 57579634 Rupture of infraspinatus tendon 602096933 S46.811A 91847053 Rupture williamson bscapularis tendon 313900210 S46.811A 6937177445 Hyperglyce jaleel due to type 2 diabetes mellitus 8527931418 E11.65 Z79.4 61940902 [id number] Chris Parker DO [facility] ([facility]) [address] [place] [address] 5 11/27/2024 14:15:45 12/06/2024 09:32:58 Thrombocytopenic disorder 054515146 D69.6 20973 Hepatosplenomegaly 58797 000 R16.2 15092 [id number] Chris Parker [facility] ([facility]) [address] [place] [address] 5 12/14/2024 12:31:55 12/27/2024 18:42:02 [id number] Chris Parker DO [facility] ([facility]) [address] [place] [address] 01/11/2025 12:12:21 01/16/2025 10:56:12 Hyperglycemia due to type 2 diabetes mellitus 2957262899 E11.65 Z79.4 [id number] Chris Parker DO [facility] ([facility]) [address] [place], [place] [phone] 5 01/15/2025 12:18:30 01/17/2025 08:49:31 Type 1 diabetes mellitus 09495050 E10.9 Hepatosplenomegaly 68826 000 R16.2 44378 Pneumonia 706416201 J18. 9 8008225128 [id number] Chris Parker DO [facility] ([facility]) [address] [place], [place] [phone] 5 01/18/2025 09:41:48 01/23/2025 16:25:08 [id number] Chris Parker DO [facility] ([facility]) [address] [place], [place] [phone] 01/22/2025 15:25:32 01/24/2025 09:26:09 Congestive heart failure 68828831 I50.9 Type 1 brad betes mellitus 10724611 E10.9 Hepatosplenomegaly 73559 000 R16.2 98384 [id number] Chris Parker DO [facility] ([facility]) [address] [place] [address] 5 02/05/2025 14:15:56 02/06/2025 16:50:40 Hepatosplenomegaly 50223413 R16.2 01745 Ascites 641926673 R18.8 465250 Pancytopenia 526624243 D 61.818 94812 [id number] Chris Parker DO [facility] ([facility]) [address] [place], [place] [address] 02/08/2025 13:43:34 02/13/2025 12:53:21 Hyperglycemia due to type 2 diabetes mellitus 7556551441 E11.65 Z79.4 Hepatosplenomegaly 53832 000 R16.2 03570 [id number] Chris Parker DO [facility] ([facility]) [address] [place] [address] 02/12/2025 13:42:12 02/14/2025 09:05:11 Post-discharge follow-up 742035899 Z09 796819 Essential hypertension 65160500 I10 Congestive heart failure 50894047 I50.9 Health Concerns Section Related Observation LastModified by Organization Detai ls LastModified Time None Recorded Concern Status LastModified by Organization Details LastModified Time None Recorded Advance Directives Directive None Recorded Payers Insurance Date Sequence Insurance Name Policy Number Policy Pate Covered Member ID Pate Member ID Guarantor Name 02/29/2024 1 *SELF PAY* Ti mmy Jorje Gavin 02/05/2025 [place] - [facility] (MEDICARE) Marciano L Gavin [id number] Marciano L Gavin 02/05/2025 [place] [facility]) Marciano L Alden [id number] Marciano L Alden 02/05/2025 2 [place] Marciano L Alden [id number] Marciano L Gavin 02/05/2025 1 [place] Marciano L Alden [id number] Marciano L Alden Notes Date Note Type Note Provider Name and Address Organization Details Recorded Time 01/22/2025 text/html COPDReported by PatientHPI:For associated symptoms, patient reportsobesity. For onset/timing, patient reportsmultiple times per day. For duration, patient reportshas noted for years.ROS as noted in the HPI ER follow up, discuss care and weight gain. Chris Parker DO [address] [place], [address], [facility] 01/23/2025 14:50:00 02/05/2025 text/html COPDReported by PatientHPI:For associated symptoms, patient reportsobesity. For onset/timing, patient reportsmultiple times per day. For duration, patient reportshas noted for years.ROS as noted in the HPI Planning to see oncology/hematology today, plan to have liver biopsy tomorrow. Chris Parker DO [address] [place] [address], [phone], [facility], Chas 02/05/2025 15:13:57 02/08/2025 text/html COPDReported by PatientHPI:For associated symptoms, patient reportsobesity. For onset/timing, patient reportsmultiple times per day. For duration, patient reportshas noted for years.ROS as noted in the HPI Planning to go for paracentesis. Chris Parker DO [address] [place] [address], [phone], [facility], [place]. 02/11/2025 17:17:58 02/12/2025 text/html COPDReported by PatientHPI:For associated symptoms, patient reportsobesity. For onset/timing, patient reportsmultiple times per day. For duration, patient reportshas noted for years.ROS as noted in the HPI stayed in hospital over the weekend Chris Parker DO [address] [place] [address], [phone], [facility], Chas 02/12/2025 15:44:36
--- OUTSIDE RECORDS SUMMARY | 2025-02-14 09:29 | XMS_ITS | Encounter Summary ---
Author Organization [facility] Address [address] [place] [address] Care Team Providers Care Jacquard Card Cutter Name Role Phone Cuba Solano MD Primary Care Provider [phone] [phone] Encounter Details Date Type Department Care Team (Latest Contact Info) Description 04/02/2004 Outpatient Historical [facility] Family Medicine [place] [address] [address] Donte Borrego MD NO ADDRESS ON FILE DIABETES MELLITUS TYPE II UNCONTR UNCOMPL (Primary Dx); GOUT NOS Social History Tobacco Use Types Packs/Day Years Used Date Smoking Tobacco: Never Assessed Sex and Gender Information Value Date Recorded Sex Assigned at Not on file 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
--- OUTSIDE RECORDS SUMMARY | 2025-02-14 09:29 | XMS_ITS | Encounter Summary ---
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
--- OUTSIDE RECORDS SUMMARY | 2025-02-14 09:29 | XMS_ITS | Encounter Summary ---
Author Organization [facility] Address [address] [place] [address] Care Team Providers Care Signs And Displays Sales Representative Name Role Phone Cuba Solano MD Primary Care Provider [phone] [phone] Encounter Details Date Type Department Care Team (Latest Contact Info) Description 04/04/1999 Outpatient Historical [facility] Family Medicine [place] [facility] [address] [address] Zara Royal, DO [address] [place] [address] Edema (Primary Dx); Unspecified essential hypertension Social History Tobacco Use Types Packs/Day Years Used Date Smoking Tobacco: Never Assessed Sex and Gender Information Value Date Recorded Sex Assigned at Not on file 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
--- OUTSIDE RECORDS SUMMARY | 2025-02-14 09:29 | XMS_ITS | Encounter Summary ---
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
--- OUTSIDE RECORDS SUMMARY | 2025-02-14 09:29 | XMS_ITS | Encounter Summary ---
Author Organization [facility] Address [address] [place] [address] Care Team Providers Care Nutrition And Dietetics Instructor Name Role Phone Cuba Solano MD Primary Care Provider +1 [phone] Encounter Details Date Type Department Care Team (Latest Contact Info) Description 03/30/2004 Outpatient Historical [facility] [address] [place] [address] [place] [address] Kvng Kilpatrick MD NO ADDRESS ON FILE HYPERSOMNI W SLEEP APNEA (Primary Dx) Social History Tobacco Use Types Packs/Day Years Used Date Smoking Tobacco: Never Assessed Sex and Gender Information Value Date Recorded Sex Assigned at Not on file 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
--- OUTSIDE RECORDS SUMMARY | 2025-02-14 09:29 | XMS_ITS | Encounter Summary ---
Author Organization [facility] Address [address] [place] [address] Care Team Providers Care Government Program Manager Name Role Phone Cuba Solano MD Primary Care Provider [phone] Encounter Details Date Type Department Care Team (Latest Contact Info) Description 03/05/1999 Outpatient Historical [facility] Family Medicine [place] [address] [address] oDnte Borrego MD NO ADDRESS ON FILE Need vaccination-viral disease (Primary Dx); Encounter for long-term (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 of other medications Social History Tobacco Use Types Packs/Day Years Used Date Smoking Tobacco: Never Assessed Sex and Gender Information Value Date Recorded Sex Assigned at Not on file 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
--- OUTSIDE RECORDS SUMMARY | 2025-02-14 09:29 | XMS_ITS | Encounter Summary ---
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
[2025-02-14 09:36] LABS: Hematocrit 30.5 % (37-53); Hemoglobin 9.40 g/dL (11.27-16.99); Mean Corpuscular HGB Conc 30.8 g/dL (30-55); Mean Corpuscular Hemoglobin 25.9 pg (27-33); Mean Corpuscular Volume 84.0 fl (82-101); Nucleated Red Blood Cells % 0 %; Platelet Count 132 10^3/cmm (157-399); Red Blood Count 3.63 10^6/uL (3.85-5.65); White Blood Count 5.99 10^3/uL (3.29-11.43)
--- NOTE | 2025-02-14 09:41 | ECG_ITS ---
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 Measurements Intervals [place] Rate: 106 P: 0 OR: 0 QRS: 128 QRSD: 30 T: 125 QT: 419 QTc: 558 Interpretive Statements SINUS TACHCYARDIA RIGHT AXIS DEVIATION [QRS AXIS > 100] LOW QRS VOLTAGE [QRS DEFLECTION < 0.5/1.0 mV IN LIMB/CHEST LEADS] POSSIBLE ANTERIOR MYOCARDIAL INFARCTION , OF INDETERMINATE AGE [30 ms Q WAVE IN V3/V4, OR R < 0.2 mV IN V4] INFERIOR MYOCARDIAL INFARCTION OF INDETTERMINATE AGE Compared to ECG 02/09/2025 18:32:18 Right-axis deviation now present Low QRS voltage now present Intraventricular conduction delay no longer present Myocardial infarct finding still present Electronically Signed On 02-14-2025 16:48:10 CDT by González Sanabria M.D. [email or web address]
[2025-02-14 09:43] LABS: Glucose Urine UA Negative (Normal); Nitrate Urine Negative (Negative); Specific Gravity, Urine 1.011 (1.005-1.030)
[2025-02-14 09:48] LABS: Add Urine Microscopic? YES; Universal Test for UA Present (0)
[2025-02-14 09:50] LABS: Alanine Aminotransferase 38 U/L (0-41); Albumin Level 3.4 g/dL (3.5-5.2); Alkaline Phosphatase 95 U/L (40-130); Anion Gap 17.9 (5-19); Aspartate Amino Transferase 48 U/L (0-40); Blood Urea Nitrogen 22 mg/dL (8-23); Calcium 8.5 mg/dL (8.5-10.5); Carbon Dioxide 20 mmol/L (22-29); Chloride 99 mmol/L (98-107); Creatinine Clr Calc Pharmacy 129.5227; Globulin 2.8 g/dL (1.3-4.6); Glucose 214 mg/dL (65-115); Osmolality Calculated 286 mOsm/kg (285-295); Potassium 3.9 mmol/L (3.5-5.1); Sodium 133 mmol/L (136-145); Total Protein 6.2 g/dL (6.6-8.7)
--- NOTE | 2025-02-14 10:03 | W.ED.WEAKNES ---
HPI - Weakness General: Chief complaint: Weakness Stated complaint: Fluid Retention Time Seen by Provider: 02/14/25 09:09 History of Present Illness: 59-year-old male presents emergency room claiming increased fluid retention. Had 8 pound weight gain overnight. He has a history of congestive heart failure peripheral vascular disease he previously had a left leg amputation due to trauma. He recently was hospitalized with CHF had a UTI at the same time. Is reporting some increasing shortness of breath denies chest pain. Patient has a chronic indwelling Constantino. Associated symptoms: Denies chest pain, chills, dysuria or fever(s) Related Data Home Medications ?Medication ?Instructions ?Recorded ?Confirmed allopurinol 300 mg tablet 300 mg PO DAILY 05/08/19 02/14/25 carboxymethylcellulose sodium 0.5 1 drop ophthalmic (eye) DAILY PRN 05/08/19 02/14/25 % eye drops (Refresh Tears) Dry Eyes cholecalciferol (vitamin D3) 25 1,000 unit PO DAILY 05/08/19 02/14/25 mcg (1,000 unit) capsule montelukast 10 mg tablet 10 mg PO BEDTIME 05/08/19 02/14/25 metoclopramide HCl 10 mg tablet 10 mg PO Q6H Indigestion 04/16/22 02/14/25 (Reglan) spironolactone 25 mg tablet 12.5 mg PO DAILY 09/18/22 02/14/25 multivit-minerals no.60-ferrous 1 tab PO DAILY 10/16/22 02/14/25 fumarate-folic acid 27 mg-1 mg tablet (Niva-Plus) metoprolol tartrate 100 mg tablet 100 mg PO BID 12/28/23 02/14/25 esomeprazole magnesium 40 mg 40 mg PO BID 04/24/24 02/14/25 capsule,delayed release lidocaine 5 % topical patch 1 patch topical BID 04/24/24 02/14/25 magnesium hydroxide 400 mg/5 mL 5 ml PO DAILY PRN Constipation 04/24/24 02/14/25 oral suspension (Milk of Magnesia) sodium phosphates 19 gram-7 118 ml NH DAILY PRN Constipation 04/24/24 02/14/25 gram/118 mL enema (Fleet Enema) tamsulosin 0.4 mg capsule (Flomax) 0.4 mg PO BID 04/24/24 02/14/25 acetaminophen 500 mg capsule 500 mg PO Q6H PRN pain or fever 09/08/24 02/14/25 budesonide 160 mcg-glycopyr 9 2 inh inhalation BID 09/08/24 02/14/25 mcg-formot 4.8 mcg/actuation HFA inhaler (Breztri Aerosphere) polyethylene glycol 3350 17 gram 17 g PO DAILY 09/08/24 02/14/25 oral powder packet albuterol sulfate 2.5 mg/3 mL 2.5 mg inhalation Q6H PRN Dyspnea 02/05/25 02/14/25 (0.083 %) solution for nebulization atorvastatin 20 mg tablet 20 mg PO DAILY 02/05/25 02/14/25 brimonidine 0.2 % eye drops 1 drp ophthalmic (eye) BID 02/05/25 02/14/25 brinzolamide 1 % eye 1 drp ophthalmic (eye) BID 02/05/25 02/14/25 drops,suspension diclofenac sodium 1 % topical gel 2 g topical TID PRN Pain 02/05/25 02/14/25 latanoprost 0.005 % eye drops 1 drp ophthalmic (eye) BEDTIME 02/05/25 02/14/25 white petrolatum-mineral oil 94 1 applic ophthalmic (eye) BEDTIME 02/05/25 02/14/25 %-3 % eye ointment (Systane Nighttime) triamcinolone acetonide 0.1 % 1 applic topical BID PRN skin 02/09/25 02/14/25 topical cream irritation on ears amiodarone 400 mg tablet 400 mg PO QAM 02/14/25 02/14/25 bisacodyl 5 mg tablet 10 mg PO DAILY PRN Constipation 02/14/25 02/14/25 furosemide 80 mg tablet 80 mg PO BID 02/14/25 02/14/25 miscellaneous medical supply 02/14/25 02/14/25 (Ocusoft Eyelid Cleansing Pads) semaglutide 1 mg/dose (4 mg/3 mL) 1 mg SUBCUT Q7D 02/14/25 02/14/25 subcutaneous pen injector (Ozempic) sennosides 8.6 mg tablet (senna) 8.6 mg PO BID 02/14/25 02/14/25 Previous Rx's ?Medication ?Instructions ?Recorded fluticasone propionate 50 1 spray intranasal BID #15.8 mL 07/18/19 mcg/actuation nasal spray,suspension hydrocodone 5 mg-acetaminophen 325 1 tab PO TID PRN pain 30 days #90 02/05/21 mg tablet tabs apixaban 5 mg tablet (Eliquis) 5 mg PO BID #180 tabs 04/06/23 pregabalin 50 mg capsule 50 mg PO TID #90 caps 03/22/24 diltiazem HCl 180 mg 180 mg PO DAILY #30 caps 02/11/25 capsule,extended release 24 hr (Cardizem CD) insulin aspart U-100 100 unit/mL 20 unit (0.2 mL) SUBCUT TID #15 mL 02/11/25 (3 mL) subcutaneous pen insulin degludec 100 unit/mL (3 80 unit (0.8 mL) SUBCUT BEDTIME 02/11/25 mL) subcutaneous pen (Tresiba #15 mL FlexTouch U-100 insulin) linezolid 600 mg tablet 600 mg PO BID 7 days #14 tabs 02/13/25 Allergies Allergy/AdvReac Type Severity Reaction Status Date / Time Penicillins Allergy ALGY-Hives Verified 02/05/25 13:27 Sulfa (Sulfonamide Allergy ALGY-Hives Verified 02/05/25 13:27 Antibiotics) Review of Systems Const: Denies: fever(s) or chills Card: Reports: edema and swelling of feet/ankles; Denies: chest pain Resp: Reports: dyspnea GI: Denies: abdominal pain : Denies: dysuria, urinary frequency or urinary urgency Musc: Denies: neck pain or back pain Skin/Breast: Denies: rash PFS ED PFSH: Medical History (Updated 02/14/25 @ 11:28 by Trell Negron DO) Chronic indwelling Constantino catheter Sleep apnea, unspecified Constipation Dry eye syndrome of unspecified lacrimal gland Unspecified glaucoma Gastro-esophageal reflux disease without esophagitis Benign prostatic hyperplasia without lower urinary tract symptoms Gout, unspecified Hyperlipidemia, unspecified 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 heart failure 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 (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 of 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 Muscle weakness (generalized) COPD (chronic obstructive pulmonary disease) half-way (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 of anticoagulants Chronic atrial fibrillation, unspecified Open wound of left lower quadrant of abdominal wall without penetration into peritoneal cavity Intertriginous dermatitis associated with moisture Morbid obesity Atrial flutter Encounter for screening colonoscopy Repeat screening colonoscopy in 10 years unless otherwise specified Chronic low back pain Chronic right shoulder pain Diabetes mellitus Shoulder pain BILATERAL Encounter for long-term use of opiate analgesic Right knee pain Amputation above knee Left Diabetes type 2, controlled Essential hypertension Dysuria-frequency syndrome Seizure BPH (benign prostatic hyperplasia) Primary osteoarthritis of both knees r knee Sleep apnea Surgical History (Updated 02/12/25 @ 00:00 by ALINA Andino) History of left above knee amputation History of shoulder surgery 2002 x 2 L shoulder Family History Other Heart disease Hypertension Social History (Updated 02/09/25 @ 16:44 by Uvaldo Stark MD) Smoking and tobacco/nicotine status: current some day tobacco/nicotine user smokeless tobacco Smokeless tobacco user: chewing tobacco Smokeless tobacco details: 2 cans a day Quit status (tobacco/nicotine): not considering quitting Second hand smoke exposure: No Alcohol intake: never Substance/Drug Use: never Additional social history: Patient chews a can of tobacco daily. He wants full CODE STATUS as discussed with myself with his sister Tiara Garay present at bedside on 02/09/2025 Marital status: Single Marital status details: Never no kids Previous occupational history: Worked in [employer] for 3 years, [employer] Physical Exam Const: COMMON NORMALS: no acute distress GENERAL APPEARANCE: cooperative and comfortable ORIENTATION/CONSCIOUSNESS: Yes awake, Yes oriented to person, Yes oriented to place and Yes oriented to time HENMT: COMMON NORMALS: normocephalic, atraumatic and hearing grossly normal bilaterally HEAD & SCALP: normocephalic and atraumatic Resp: COMMON NORMALS: normal respiratory effort, No retractions, No use of accessory muscles and clear to auscultation bilaterally AUSCULTATION: clear to auscultation bilaterally Cardio: COMMON NORMALS: regular rate, regular rhythm and No murmurs present (Cardio) RATE: regular rate RHYTHM: regular rhythm GI: COMMON NORMALS: Soft to palpation and No hepatosplenomegaly present AUSCULTATION: Yes normoactive bowel sounds PALPATION: Yes Soft to palpation, No Tenderness to palpation present (GI), No Guarding due to palpation present (GI) and Yes No hepatosplenomegaly present Extremity: GENERAL: Yes amputation and Yes edema (Right leg) Neuro: SENSORIUM/ORIENTATION: Yes oriented to person, Yes oriented to place and Yes oriented to time Skin: COMMON NORMALS: no rashes or lesions noted GENERAL SKIN EXAM: no rashes or lesions noted Course Vital Signs: Vital signs: Vital Signs Temperature 97.4 F L 02/14/25 09:13 Pulse Rate 78 02/14/25 13:27 Respiratory Rate 20 H 02/14/25 09:13 Blood Pressure 123/75 02/14/25 13:27 Pulse Oximetry 95 02/14/25 13:27 Oxygen Delivery Me thod Room Air 02/14/25 10:27 MDM - Weakness Medical Decision Making Patient does not have seen significant decompensated heart failure at this time. His sats are normal and he does not have any orthopnea at this time. Will go ahead and discharge patient back to the retirement continue his current medications with the exception of increasing his Lasix to 100 mg twice daily for 5 days and follow-up with his primary care Medical Records I reviewed the patient's medical records. Lab Data I reviewed the patient's lab results. 02/14/25 09:20 02/14/25 09:20 Radiology Impressions Chest X-Ray 02/14/25 09:23 IMPRESSION: Little interval change. Laboratory Results WBC 5.99 10^3/uL (3.29-11.43) 02/14/25 09:20 RBC 3.63 10^6/uL (3.85-5.65) L 02/14/25 09:20 Hgb 9.40 g/dL (11.27-16.99) L 02/14/25 09:20 Hct 30.5 % (37-53) L 02/14/25 09:20 MCV 84.0 fl (82-101) 02/14/25 09:20 MCH 25.9 pg (27-33) L 02/14/25 09:20 MCHC 30.8 g/dL (30-55) 02/14/25 09:20 RDW 16.8 % (12.1-15.1) H 02/14/25 09:20 Plt Count 132 10^3/cmm (157-399) L 02/14/25 09:20 MPV 11.1 fL (7.4-10.4) H 02/14/25 09:20 Neut % (Auto) 79.4 % 02/14/25 09:20 Lymph % (Auto) 7.0 % 02/14/25 09:20 Calloway % (Auto) 7.8 % 02/14/25 09:20 Eos % (Auto) 4.3 % 02/14/25 09:20 Baso % (Auto) 0.3 % 02/14/25 09:20 Neut # (Auto) 4.75 10^3/uL (1.8-7.7) 02/14/25 09:20 Lymph # (Auto) 0.4 10^3/uL (0.8-4.8) L 02/14/25 09:20 Calloway # (Auto) 0.5 10^3/uL (0.2-0.9) 02/14/25 09:20 Eos # (Auto) 0.3 10^3/uL (0.0-0.8) 02/14/25 09:20 Baso # (Auto) 0.0 10^3/uL (0.0-0.1) 02/14/25 09:20 Nucleated RBC % (auto) 0 % 02/14/25 09:20 Nucleated RBCs # 0.0 /100WBC 02/14/25 09:20 Sodium 133 mmol/L (136-145) L 02/14/25 09:20 Potassium 3.9 mmol/L (3.5-5.1) 02/14/25 09:20 Chloride 99 mmol/L (98-107) 02/14/25 09:20 Carbon Dioxide 20 mmol/L (22-29) L 02/14/25 09:20 Anion Gap 17.9 (5-19) 02/14/25 09:20 BUN 22 mg/dL (8-23) 02/14/25 09:20 Creatinine 1.0 mg/dL (0.7-1.2) 02/14/25 09:20 GFR Calculation 76.0 mL/min (90-130) L 02/14/25 09:20 Glucose 214 mg/dL (65-115) H 02/14/25 09:20 Calculated Osmolality 286 mOsm/kg (285-295) 02/14/25 09:20 Calcium 8.5 mg/dL (8.5-10.5) 02/14/25 09:20 Total Bilirubin 1.5 mg/dL (0.15-1.2) H 02/14/25 09:20 AST 48 U/L (0-40) H 02/14/25 09:20 ALT 38 U/L (0-41) 02/14/25 09:20 Alkaline Phosphatase 95 U/L (40-130) 02/14/25 09:20 Total Protein 6.2 g/dL (6.6-8.7) L 02/14/25 09:20 Albumin 3.4 g/dL (3.5-5.2) L 02/14/25 09:20 Globulin 2.8 g/dL (1.3-4.6) 02/14/25 09:20 Urine Color Yellow (Yellow) 02/14/25 09:35 Urine Appearance Cloudy (CLEAR) A 02/14/25 09:35 Urine pH 5.5 (5-7) 02/14/25 09:35 Ur Specific [place] 1.011 (1.005-1.030) 02/14/25:35 Urine Protein Negative (Negative) 02/14/25 09:35 Urine Glucose (UA) Negative (Normal) 02/14/25 09:35 Urine Ketones Negative (Negative) 02/14/25 09:35 Urine Blood 2+ (Negative) A 02/14/25:35 Urine Nitrate Negative (Negative) 02/14/25 09:35 Urine Bilirubin Negative (Negative) 02/14/25 09:35 Urine Urobilinogen 0.2 mg/dL (Negative) 02/14/25 09:35 Ur Leukocyte Esterase 2+ (Negative) A 02/14/25:35 Urine RBC 11-20 /hpf (0-2) H 02/14/25 09:35 Urine WBC >100 /hpf (0-5) H 02/14/25 09:35 Ur Squamous Epith Cells 0-5 /hpf (0-5) 02/14/25 09:35 Amorphous Sediment Not Reportable 02/14/25 09:35 Urine Bacteria 4+ /hpf (NONE) H 02/14/25 09:35 Hyaline Casts 43.00 /lpf 02/14/25 09:35 All radiology interpretation(s) finalized by discharge EKG Data EKG 1: I personally reviewed and interpreted this EKG as follows: EKG interpretation date: 02/14/25 Prior EKG tracings: available for review Interpretation: EKG 02/14/2025 9:41 AM sinus tachycardia with a rate of 106. QTc 558. Low voltage EKG. Compared to the EKG from 02/09/2025, No acute changes noted. Discharge Plan Discharge Patient Disposition: Home Clinical Impression: Fluid retention, Chronic indwelling Constantino catheter Atrial fibrillation Qualifiers: Atrial fibrillation type: unspecified chronic Qualified Code(s): I48.20 - Chronic atrial fibrillation, unspecified Condition: Stable Prescriptions: No Action montelukast 10 mg tablet 10 mg PO BEDTIME allopurinol 300 mg tablet 300 mg PO DAILY Refresh Tears 0.5 % drops 1 drop ophthalmic (eye) DAILY PRN (Reason: Dry Eyes) cholecalciferol (vitamin D3) 1,000 unit capsule 1,000 unit PO DAILY tamsulosin [Flomax] 0.4 mg capsule 0.4 mg PO BID hydrocodone-acetaminophen 5-325 mg tablet 1 tab PO TID PRN (Reason: pain) 30 Days Qty: 90 0RF magnesium hydroxide [Milk of Magnesia] 400 mg/5 mL suspension 5 ml PO DAILY PRN (Reason: Constipation) Fleet Enema 19-7 gram/118 mL enema 118 ml NH DAILY PRN (Reason: Constipation) metoclopramide HCl [Reglan] 10 mg tablet 10 mg PO Q6H Niva-Plus 27 mg iron- 1 mg tablet 1 tab PO DAILY metoprolol tartrate 100 mg tablet 100 mg PO BID lidocaine 5 % adhesive patch,medicated 1 patch topical BID Rx Instructions: leave on most painful area for up to 12 hrs esomeprazole magnesium 40 mg capsule,delayed release(DR/EC) 40 mg PO BID polyethylene glycol 3350 17 gram powder in packet 17 g PO DAILY acetaminophen 500 mg capsule 500 mg PO Q6H PRN (Reason: pain or fever) Breztri Aerosphere 160-9-4.8 mcg/actuation HFA aerosol inhaler 2 inh inhalation BID fluticasone propionate 50 mcg/actuation spray,suspension 1 spray INTRANASAL BID Qty: 15.8 6RF spironolactone 25 mg tablet 12.5 mg PO DAILY Eliquis 5 mg tablet 5 mg PO BID Qty: 180 3RF pregabalin 50 mg capsule 50 mg PO TID Qty: 90 5RF albuterol sulfate 2.5 mg /3 mL (0.083 %) solution for nebulization 2.5 mg inhalation Q6H PRN (Reason: Dyspnea) brinzolamide 1 % drops,suspension 1 drp ophthalmic (eye) BID brimonidine 0.2 % drops 1 drp ophthalmic (eye) BID diclofenac sodium 1 % gel 2 g TOPICAL TID PRN (Reason: Pain) latanoprost 0.005 % drops 1 drp ophthalmic (eye) BEDTIME Systane Nighttime 94-3 % Ointment 1 applic OPHTHALMIC (EYE) BEDTIME atorvastatin 20 mg tablet 20 mg PO DAILY triamcinolone acetonide 0.1 % cream 1 applic TOPICAL BID PRN (Reason: skin irritation on ears) diltiazem HCl [Cardizem CD] 180 mg capsule,extended release 24hr 180 mg PO DAILY Qty: 30 0RF insulin aspart U-100 100 unit/mL (3 mL) insulin pen 20 unit SUBCUT TID Qty: 15 0RF Rx Instructions: with meals insulin degludec [Tresiba FlexTouch U-100] 100 unit/mL (3 mL) insulin pen 80 unit SUBCUT BEDTIME Qty: 15 0RF linezolid 600 mg tablet 600 mg PO BID 7 Days Qty: 14 0RF sennosides [senna] 8.6 mg tablet 8.6 mg PO BID amiodarone 400 mg tablet 400 mg PO QAM furosemide 80 mg tablet 80 mg PO BID bisacodyl 5 mg Tablet 10 mg PO DAILY PRN (Reason: Constipation) (DME) Ocusoft Eyelid Cleansing Pads Pad MISCELLANEOUS Ozempic 1 mg/dose (4 mg/3 mL) pen injector 1 mg SUBCUT Q7D Rx Instructions: Wednesday Discharge Orders: Discharge ED (Routine); Ordered 02/14/25 Ordered By: Trell Negron Referrals: Chris Parker DO [Primary Care Provider, Internal Medicine] Patient Instructions: Opioid Safety, Pain Management, Patient Portal & Neeraj Instructions Activity Restrictions/Additional Instructions: Thank you for choosing [facility] for your healthcare needs today. It is very important that you follow up as instructed or that you return to the Emergency Department should you have concerns or if your condition changes or worsens in any way. Emergency department visits are focused on emergent conditions, in some cases you may require further evaluation on an outpatient basis. You were seen in the emergency room with concerns about increased weight gain. Was no sign of decompensation of your heart failure at this time will recommend you increase your Lasix to 100 mg twice a day for the next 5 days follow-up with your primary care doctor through the retirement. Continue to take your antibiotics for the bladder infection (Please note that included in your discharge packet is information concerning opioid safety and pain management. This information is given to all patients were discharged from the ER regardless of their discharge diagnosis or the medicines they usually take or are prescribed.) Print Language: Sami Coding Level of Care Code ED Control And Recovery [facility] for Jeronimo Enamorado
[2025-02-14] MEDS: FUROsemide 10 mg/mL SDV 10mL 60 MG IVP (10:25)
== END 2025-02-14 13:28 | disposition home or self-care (01) ==
PROVIDERS: Emergency Provider Family Medicine; PCP Internal Medicine
DX: R60.9 Edema, unspecified (principal); I48.20 Chronic atrial fibrillation, unspecified; Z46.82 Encounter for fitting and adjustment of non-vascular catheter; Z79.01 Long term (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 of anticoagulants; Z79.4 Long term (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 of insulin; F17.220 Nicotine dependence, chewing tobacco, uncomplicated; E78.5 Hyperlipidemia, unspecified; J44.9 Chronic obstructive pulmonary disease, unspecified; E11.9 Type 2 diabetes mellitus without complications; I11.0 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 heart disease with heart failure; I50.9 Heart failure, unspecified
CPT/HCPCS: 36415; 71045; 80053; 81001; 85025; 87086; 93005; 96374; 99285; J1938

== ENCOUNTER 2025-02-19 10:24 | Emergency (ER) | payer MEDICARE, MEDICAID, SELFPAY ==
--- NOTE | 2025-02-19 10:14 | XRR_ITS ---
PROCEDURE INFORMATION: Exam: XR Chest Exam date and time: 02/19/2025 11:23 AM Age: 59 years old Clinical indication: Other: Edema; Prior surgery; Surgery date: 6+ months; Surgery type: Left shoulder TECHNIQUE: Imaging protocol: Radiologic exam of the chest. Views: 1 view. COMPARISON: CR XR chest 1V portable [id number] 02/14/2025 9:53 AM FINDINGS: Lungs: There are bilateral infiltrates in a relatively symmetric distribution suspicious for pulmonary edema. An inflammatory cause could have a similar appearance. Pleural spaces: Small pleural effusions suspected. Heart/Mediastinum: The heart is enlarged. Bones/joints: Unremarkable. XR/XR chest 1V portable [id number] IMPRESSION: 1. Cardiomegaly with bilateral infiltrates and suspected small pleural effusions. Findings are overall similar to that seen on prior exam.
[2025-02-19 10:25] VITALS: BP 130/72; PULSE 110; RESP 20; TEMP 36.9; O2SAT 97
--- NOTE | 2025-02-19 10:33 | W.ED.GENADLT ---
HPI - General Adult General: Chief complaint: General Medical Stated complaint: fluid retention History of Present Illness: 59-year-old man with a history of morbid obesity with a BMI of 54, chronic indwelling Constantino catheter, sleep apnea, GERD, BPH, gout, hyperlipidemia, hypertension, COPD, chronic A-fib, chronic anticoagulation on Eliquis, chronic pain syndrome, diabetes, seizures, and chronic edema Who presents to the emergency room with weight gain and concern for abdominal edema. No increased work of breathing. No oxygen requirements. No chest pain. No abdominal pain. No nausea or vomiting. Related Data Home Medications ?Medication ?Instructions ?Recorded ?Confirmed allopurinol 300 mg tablet 300 mg PO DAILY 05/08/19 02/14/25 carboxymethylcellulose sodium 0.5 1 drop ophthalmic (eye) DAILY PRN 05/08/19 02/14/25 % eye drops (Refresh Tears) Dry Eyes cholecalciferol (vitamin D3) 25 1,000 unit PO DAILY 05/08/19 02/14/25 mcg (1,000 unit) capsule montelukast 10 mg tablet 10 mg PO BEDTIME 05/08/19 02/14/25 metoclopramide HCl 10 mg tablet 10 mg PO Q6H Indigestion 04/16/22 02/14/25 (Reglan) spironolactone 25 mg tablet 12.5 mg PO DAILY 09/18/22 02/14/25 multivit-minerals no.60-ferrous 1 tab PO DAILY 10/16/22 02/14/25 fumarate-folic acid 27 mg-1 mg tablet (Niva-Plus) metoprolol tartrate 100 mg tablet 100 mg PO BID 12/28/23 02/14/25 esomeprazole magnesium 40 mg 40 mg PO BID 04/24/24 02/14/25 capsule,delayed release lidocaine 5 % topical patch 1 patch topical BID 04/24/24 02/14/25 magnesium hydroxide 400 mg/5 mL 5 ml PO DAILY PRN Constipation 04/24/24 02/14/25 oral suspension (Milk of Magnesia) sodium phosphates 19 gram-7 118 ml [place] DAILY PRN Constipation 04/24/24 02/14/25 gram/118 mL enema (Fleet Enema) tamsulosin 0.4 mg capsule (Flomax) 0.4 mg PO BID 04/24/24 02/14/25 acetaminophen 500 mg capsule 500 mg PO Q6H PRN pain or fever 09/08/24 02/14/25 budesonide 160 mcg-glycopyr 9 2 inh inhalation BID 09/08/24 02/14/25 mcg-formot 4.8 mcg/actuation HFA inhaler (Breztri Aerosphere) polyethylene glycol 3350 17 gram 17 g PO DAILY 09/08/24 02/14/25 oral powder packet albuterol sulfate 2.5 mg/3 mL 2.5 mg inhalation Q6H PRN Dyspnea 02/05/25 02/14/25 (0.083 %) solution for nebulization atorvastatin 20 mg tablet 20 mg PO DAILY 02/05/25 02/14/25 brimonidine 0.2 % eye drops 1 drp ophthalmic (eye) BID 02/05/25 02/14/25 brinzolamide 1 % eye 1 drp ophthalmic (eye) BID 02/05/25 02/14/25 drops,suspension diclofenac sodium 1 % topical gel 2 g topical TID PRN Pain 02/05/25 02/14/25 latanoprost 0.005 % eye drops 1 drp ophthalmic (eye) BEDTIME 02/05/25 02/14/25 white petrolatum-mineral oil 94 1 applic ophthalmic (eye) BEDTIME 02/05/25 02/14/25 %-3 % eye ointment (Systane Nighttime) triamcinolone acetonide 0.1 % 1 applic topical BID PRN skin 02/09/25 02/14/25 topical cream irritation on ears amiodarone 400 mg tablet 400 mg PO QAM 02/14/25 02/14/25 bisacodyl 5 mg tablet 10 mg PO DAILY PRN Constipation 02/14/25 02/14/25 furosemide 80 mg tablet 80 mg PO BID 02/14/25 02/14/25 miscellaneous medical supply 02/14/25 02/14/25 (Ocusoft Eyelid Cleansing Pads) semaglutide 1 mg/dose (4 mg/3 mL) 1 mg SUBCUT Q7D 02/14/25 02/14/25 subcutaneous pen injector (Ozempic) sennosides 8.6 mg tablet (senna) 8.6 mg PO BID 02/14/25 02/14/25 Previous Rx's ?Medication ?Instructions ?Recorded fluticasone propionate 50 1 spray intranasal BID #15.8 mL 07/18/19 mcg/actuation nasal spray,suspension hydrocodone 5 mg-acetaminophen 325 1 tab PO TID PRN pain 30 days #90 02/05/21 mg tablet tabs apixaban 5 mg tablet (Eliquis) 5 mg PO BID #180 tabs 04/06/23 pregabalin 50 mg capsule 50 mg PO TID #90 caps 03/22/24 diltiazem HCl 180 mg 180 mg PO DAILY #30 caps 02/11/25 capsule,extended release 24 hr (Cardizem CD) insulin aspart U-100 100 unit/mL 20 unit (0.2 mL) SUBCUT TID #15 mL 02/11/25 (3 mL) subcutaneous pen insulin degludec 100 unit/mL (3 80 unit (0.8 mL) SUBCUT BEDTIME 02/11/25 mL) subcutaneous pen (Tresiba #15 mL FlexTouch U-100 insulin) linezolid 600 mg tablet 600 mg PO BID 7 days #14 tabs 02/13/25 Allergies Allergy/AdvReac Type Severity Reaction Status Date / Time Penicillins Allergy ALGY-Hives Verified 02/05/25 13:27 Sulfa (Sulfonamide Allergy ALGY-Hives Verified 02/05/25 13:27 Antibiotics) Review of Systems Narrative: Constitutional symptoms: Negative except as documented in HPI. Skin symptoms: Negative except as documented in HPI. Eye symptoms: Negative except as documented in HPI. ENMT symptoms: Negative except as documented in HPI. Respiratory symptoms: Negative except as documented in HPI. Cardiovascular symptoms: Negative except as documented in HPI. Gastrointestinal symptoms: Negative except as documented in HPI. Genitourinary symptoms: Negative except as documented in HPI. Musculoskeletal symptoms: Negative except as documented in HPI. Neurologic symptoms: Negative except as documented in HPI. Psychiatric symptoms: Negative except as documented in HPI. Endocrine symptoms: Negative except as documented in HPI. 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 Chronic atrial fibrillation, unspecified Open wound of left lower quadrant of abdominal wall without penetration into peritoneal cavity Intertriginous dermatitis associated with moisture Morbid obesity Atrial flutter Encounter for screening colonoscopy Repeat screening colonoscopy in 10 years unless otherwise specified Chronic low back pain Chronic right shoulder pain Diabetes mellitus Shoulder pain BILATERAL Encounter for long-term use of opiate analgesic Right knee pain Amputation above knee Left Diabetes type 2, controlled Essential hypertension Dysuria-frequency syndrome Seizure BPH (benign prostatic hyperplasia) Primary osteoarthritis of both knees r knee Sleep apnea Surgical History (Updated 02/12/25 @ 00:00 by ALINA Andino) History of left above knee amputation History of shoulder surgery 2001 x 2 L shoulder Family History Other Heart disease Hypertension Social History (Updated 02/09/25 @ 16:44 by Uvaldo Stark MD) Smoking and tobacco/nicotine status: current some day tobacco/nicotine user smokeless tobacco Smokeless tobacco user: chewing tobacco Smokeless tobacco details: 2 cans a day Quit status (tobacco/nicotine): not considering quitting Second hand smoke exposure: No Alcohol intake: never Substance/Drug Use: never Additional social history: Patient chews a can of tobacco daily. 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 Skin: Warm, dry. Head: Normocephalic, atraumatic. Neck: Supple, trachea midline. Eye: Extraocular movements are intact. Ears, nose, mouth and throat: mucosa moist. Cardiovascular: Regular, Normal peripheral perfusion. Patient does have some body wall edema. Respiratory: Lungs are clear to auscultation, respirations are non-labored, breath sounds are equal, Symmetrical chest wall expansion. Gastrointestinal: Soft, Nontender, Non distended Musculoskeletal: Normal ROM, no deformity. Neurological: Alert and oriented, No focal neurological deficit observed. Psychiatric: Cooperative, appropriate mood & affect. Course Vital Signs: Vital signs: Vital Signs Temperature 98.4 F 02/19/25 10:25 Pulse Rate 110 H 02/19/25 10:25 Respiratory Rate 20 H 02/19/25 10:25 Blood Pressure 130/72 02/19/25 10:25 Pulse Oximetry 97 02/19/25 10:25 Oxygen Delivery Me thod Room Air 02/19/25 10:25 MDM - General Adult Medical Decision Making Medical decision making: Differential diagnosis including but not limited to and based on the above HPI, review of systems and physical exam: for patient with edema: Congestive heart failure. Kidney failure. DVT / Pulmonary embolism. Protein malnutrition. Cirrhosis. Orders placed to evaluate differential diagnosis based on the above differential, HPI and physical exam Chest x-ray: Cardiomegaly with bilateral infiltrates/pleural effusions which are similar to prior exams. Nothing acute. This was reviewed and interpreted by myself the emergency room physician. I also reviewed the radiology report. Lab Review: Laboratory results were reviewed and interpreted by myself the emergency room physician. No leukocytosis. No anemia. No renal failure. Sodium is a little low at 129. proBNP is lower than his baseline. I reviewed the patient's medical record. 59-year-old man with a history of morbid obesity with a BMI of 54, chronic indwelling Constantino catheter, sleep apnea, GERD, BPH, gout, hyperlipidemia, hypertension, COPD, chronic A-fib, chronic anticoagulation on Eliquis, chronic pain syndrome, diabetes, seizures, and chronic edema Reexamination: No increased work of breathing. No altered mental status. No oxygen requirements. Assessment and plan: Edema ?80 mg IV Lasix in the emergency room. - Discharged home - Discussed findings and plan with patient. Answered any questions. - All laboratory values were reviewed and interpreted personally by myself, the ER physician - All imaging was reviewed and interpreted personally by myself, the ER physician. - Evaluation and treatment of this problem were appropriate in the emergency setting Lab Data 02/19/25 11:34 02/19/25 11:34 Radiology Impressions Chest X-Ray 02/19/25 10:14 IMPRESSION: 1. Cardiomegaly with bilateral infiltrates and suspected small pleural effusions. Findings are overall similar to that seen on prior exam. Laboratory Results WBC 6.06 10^3/uL (3.29-11.43) 02/19/25 11:34 RBC 3.20 10^6/uL (3.85-5.65) L 02/19/25 11:34 Hgb 8.30 g/dL (11.27-16.99) L 02/19/25 11:34 Hct 25.5 % (37-53) L 02/19/25 11:34 MCV 79.7 fl (82-101) L 02/19/25 11:34 MCH 25.9 pg (27-33) L 02/19/25 11:34 MCHC 32.5 g/dL (30-55) 02/19/25 11:34 RDW 16.8 % (12.1-15.1) H 02/19/25 11:34 Plt Count 124 10^3/cmm (157-399) L 02/19/25 11:34 MPV 10.1 fL (7.4-10.4) 02/19/25 11:34 Neut % (Auto) 78.7 % 02/19/25 11:34 Lymph % (Auto) 7.3 % 02/19/25 11:34 [place] % (Auto) 9.2 % 02/19/25 11:34 Eos % (Auto) 3.3 % 02/19/25 11:34 Baso % (Auto) 0.3 % 02/19/25 11:34 Neut # (Auto) 4.77 10^3/uL (1.8-7.7) 02/19/25 11:34 Lymph # (Auto) 0.4 10^3/uL (0.8-4.8) L 02/19/25 11:34 [place] # (Auto) 0.6 10^3/uL (0.2-0.9) 02/19/25 11:34 Eos # (Auto) 0.2 10^3/uL (0.0-0.8) 02/19/25 11:34 Baso # (Auto) 0.0 10^3/uL (0.0-0.1) 02/19/25 11:34 Nucleated RBC % (auto) 0 % 02/19/25 11:34 Nucleated RBCs # 0.0 /100WBC 02/19/25 11:34 Sodium 129 mmol/L (136-145) L 02/19/25 11:34 Potassium 4.3 mmol/L (3.5-5.1) 02/19/25 11:34 Chloride 94 mmol/L (98-107) L 02/19/25 11:34 Carbon Dioxide 23 mmol/L (22-29) 02/19/25 11:34 Anion Gap 16.3 (5-19) 02/19/25 11:34 BUN 27 mg/dL (8-23) H 02/19/25 11:34 Creatinine 0.9 mg/dL (0.7-1.2) 02/19/25 11:34 GFR Calculation 85.8 mL/min (90-130) L 02/19/25 11:34 Glucose 229 mg/dL (65-115) H 02/19/25 11:34 Calculated Osmolality 280 mOsm/kg (285-295) L 02/19/25 11:34 Calcium 8.8 mg/dL (8.5-10.5) 02/19/25 11:34 Total Bilirubin 1.4 mg/dL (0.15-1.2) H 02/19/25 11:34 AST 55 U/L (0-40) H 02/19/25 11:34 ALT 37 U/L (0-41) 02/19/25 11:34 Alkaline Phosphatase 99 U/L (40-130) 02/19/25 11:34 Troponin T Baseline 53 ng/L (0-15) H 02/19/25 11:34 NT-Pro-B Natriuret Pep 852 pg/mL (0-125) H 02/19/25 11:34 Total Protein 5.6 g/dL (6.6-8.7) L 02/19/25 11:34 Albumin 3.4 g/dL (3.5-5.2) L 02/19/25 11:34 Globulin 2.2 g/dL (1.3-4.6) 02/19/25 11:34 All radiology interpretation(s) finalized by discharge Discharge Plan Discharge Patient Disposition: Home Clinical Impression: Edema Condition: Stable Prescriptions: No Action montelukast 10 mg tablet 10 mg PO BEDTIME allopurinol 300 mg tablet 300 mg PO DAILY Refresh Tears 0.5 % drops 1 drop ophthalmic (eye) DAILY PRN (Reason: Dry Eyes) cholecalciferol (vitamin D3) 1,000 unit capsule 1,000 unit PO DAILY tamsulosin [Flomax] 0.4 mg capsule 0.4 mg PO BID hydrocodone-acetaminophen 5-325 mg tablet 1 tab PO TID PRN (Reason: pain) 30 Days Qty: 90 0RF magnesium hydroxide [Milk of Magnesia] 400 mg/5 mL suspension 5 ml PO DAILY PRN (Reason: Constipation) Fleet Enema 19-7 gram/118 mL enema 118 ml [place] DAILY PRN (Reason: Constipation) metoclopramide HCl [Reglan] 10 mg tablet 10 mg PO Q6H Niva-Plus 27 mg iron- 1 mg tablet 1 tab PO DAILY metoprolol tartrate 100 mg tablet 100 mg PO BID lidocaine 5 % adhesive patch,medicated 1 patch topical BID Rx Instructions: leave on most painful area for up to 12 hrs esomeprazole magnesium 40 mg capsule,delayed release(DR/EC) 40 mg PO BID polyethylene glycol 3350 17 gram powder in packet 17 g PO DAILY acetaminophen 500 mg capsule 500 mg PO Q6H PRN (Reason: pain or fever) Breztri Aerosphere 160-9-4.8 mcg/actuation HFA aerosol inhaler 2 inh inhalation BID fluticasone propionate 50 mcg/actuation spray,suspension 1 spray INTRANASAL BID Qty: 15.8 6RF spironolactone 25 mg tablet 12.5 mg PO DAILY Eliquis 5 mg tablet 5 mg PO BID Qty: 180 3RF pregabalin 50 mg capsule 50 mg PO TID Qty: 90 5RF albuterol sulfate 2.5 mg /3 mL (0.083 %) solution for nebulization 2.5 mg inhalation Q6H PRN (Reason: Dyspnea) brinzolamide 1 % drops,suspension 1 drp ophthalmic (eye) BID brimonidine 0.2 % drops 1 drp ophthalmic (eye) BID diclofenac sodium 1 % gel 2 g TOPICAL TID PRN (Reason: Pain) latanoprost 0.005 % drops 1 drp ophthalmic (eye) BEDTIME Systane Nighttime 94-3 % Ointment 1 applic OPHTHALMIC (EYE) BEDTIME atorvastatin 20 mg tablet 20 mg PO DAILY triamcinolone acetonide 0.1 % cream 1 applic TOPICAL BID PRN (Reason: skin irritation on ears) diltiazem HCl [Cardizem CD] 180 mg capsule,extended release 24hr 180 mg PO DAILY Qty: 30 0RF insulin aspart U-100 100 unit/mL (3 mL) insulin pen 20 unit SUBCUT TID Qty: 15 0RF Rx Instructions: with meals insulin degludec [Tresiba FlexTouch U-100] 100 unit/mL (3 mL) insulin pen 80 unit SUBCUT BEDTIME Qty: 15 0RF linezolid 600 mg tablet 600 mg PO BID 7 Days Qty: 14 0RF sennosides [senna] 8.6 mg tablet 8.6 mg PO BID amiodarone 400 mg tablet 400 mg PO QAM furosemide 80 mg tablet 80 mg PO BID bisacodyl 5 mg Tablet 10 mg PO DAILY PRN (Reason: Constipation) (DME) Ocusoft Eyelid Cleansing Pads Pad MISCELLANEOUS Ozempic 1 mg/dose (4 mg/3 mL) pen injector 1 mg SUBCUT Q7D Rx Instructions: Wednesday Discharge Orders: Discharge ED (Routine); Ordered 02/19/25 Ordered By: Deb Santo Referrals: Chris Parker, [Primary Care Provider, Internal Medicine] Discharge Diet: Usual diet Discharge Activity: Increase activity as tolerated Patient Instructions: Edema (ED), Opioid Safety, Pain Management, Patient Portal & Neeraj Instructions Activity Restrictions/Additional Instructions: Thank you for choosing [facility] for your healthcare needs today. You have been screened and evaluated and felt safe for discharge. Health conditions do change or evolve sometimes and as such it is important that you follow up with your Primary Doctor to be re checked, 3-5 days is a general good time frame for follow up. You are always welcome to return to the ED for re assessment if your symptoms are worsening or you have new concerns Print Language: Romansh Coding Level of Care Code ED [employer]or for Jeronimo Enamorado
--- NOTE | 2025-02-19 10:51 | ECG_ITS ---
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 Measurements Intervals [place] Rate: 110 P: 256 [place]: 183 QRS: 251 QRSD: 110 T: 157 QT: 341 QTc: 462 Interpretive Statements ATRIAL FLUTTER/FIBRILLATION, LOW QRS VOLTAGE [QRS DEFLECTION < 0.5/1.0 mV IN LIMB/CHEST LEADS] POSSIBLE RIGHT VENTRICULAR CONDUCTION DELAY [RSR (QR) IN V1/V2] INFERIOR MYOCARDIAL INFARCTION , PROBABLY OLD [40+ ms Q WAVE AND/OR ST/T ABNORMALITY IN II/aVF] ANTEROLATERAL MYOCARDIAL INFARCTION , OF INDETERMINATE AGE [40+ ms Q WAVE IN I/aVL/V3-V6] ST DEPRESSION, CONSIDER SUBENDOCARDIAL INJURY [0.1+ mV ST DEPRESSION] Compared to ECG 02/14/2025 09:41:22 ST (T wave) deviation now present Right-axis deviation no longer present Myocardial infarct finding still present Electronically Signed On 02-20-2025 19:23:16 CDT by Norberto Sylvester M.D. [email or web address]
[2025-02-19 11:42] LABS: Hematocrit 25.5 % (37-53); Hemoglobin 8.30 g/dL (11.27-16.99); Mean Corpuscular HGB Conc 32.5 g/dL (30-55); Mean Corpuscular Hemoglobin 25.9 pg (27-33); Mean Corpuscular Volume 79.7 fl (82-101); Nucleated Red Blood Cells % 0 %; Platelet Count 124 10^3/cmm (157-399); Red Blood Count 3.20 10^6/uL (3.85-5.65); White Blood Count 6.06 10^3/uL (3.29-11.43)
[2025-02-19 11:59] LABS: Troponin(5th) Baseline 53 ng/L (0-15)
--- NOTE | 2025-02-19 12:14 | ECG_ITS ---
[facility] Test Date: 2025-02-19 Pat Name: Marciano Alonso Department: Room: Gender: Male Supervisor Show Operations: : 1965 Requested By: Deb Recinos Order Number: [id number] Lima MD: Norberto Sylvester M.D. Measurements Intervals [place] Rate: 109 P: 255 [place]: 205 QRS: 268 QRSD: 114 T: 164 QT: 373 QTc: 504 Interpretive Statements ATRIAL FLUTTER/FIBRILLATION RIGHT AXIS DEVIATION [QRS AXIS > 100] LOW QRS VOLTAGE [QRS DEFLECTION < 0.5/1.0 mV IN LIMB/CHEST LEADS] POSSIBLE RIGHT VENTRICULAR CONDUCTION DELAY [RSR (QR) IN V1/V2] INFERIOR MYOCARDIAL INFARCTION , PROBABLY OLD [40+ ms Q WAVE AND/OR ST/T ABNORMALITY IN II/aVF] ANTEROLATERAL MYOCARDIAL INFARCTION , OF INDETERMINATE AGE [40+ ms Q WAVE IN I/aVL/V3-V6] Compared to ECG 02/19/2025 10:51:05 Right-axis deviation now present.Sinus tachycardia no longer present ST (T wave) deviation no longer present. Myocardial infarct finding still present Electronically Signed On 02-20-2025 19:42:17 CDT by Norberto Sylvester M.D. [email or web address]
[2025-02-19 12:18] LABS: Alanine Aminotransferase 37 U/L (0-41); Albumin Level 3.4 g/dL (3.5-5.2); Alkaline Phosphatase 99 U/L (40-130); Anion Gap 16.3 (5-19); Aspartate Amino Transferase 55 U/L (0-40); Blood Urea Nitrogen 27 mg/dL (8-23); Calcium 8.8 mg/dL (8.5-10.5); Carbon Dioxide 23 mmol/L (22-29); Chloride 94 mmol/L (98-107); Creatinine Clr Calc Pharmacy 144.3569; Globulin 2.2 g/dL (1.3-4.6); Glucose 229 mg/dL (65-115); NT Pro B Type Natriuretic Pept 852 pg/mL (0-125); Osmolality Calculated 280 mOsm/kg (285-295); Potassium 4.3 mmol/L (3.5-5.1); Sodium 129 mmol/L (136-145); Total Protein 5.6 g/dL (6.6-8.7)
[2025-02-19] MEDS: FUROsemide 10 mg/mL SDV 10mL 80 MG IVP (13:00)
[2025-02-19 13:24] VITALS: BP 136/71; PULSE 110; RESP 17; O2SAT 97
== END 2025-02-19 11:20 | disposition home or self-care (01) ==
PROVIDERS: Emergency Provider Emergency Medicine; PCP Internal Medicine
DX: R60.9 Edema, unspecified (principal); Z79.01 Long term (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 of anticoagulants; Z79.4 Long term (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 of insulin; F17.220 Nicotine dependence, chewing tobacco, uncomplicated; J44.9 Chronic obstructive pulmonary disease, unspecified; E11.9 Type 2 diabetes mellitus without complications; I11.0 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 heart disease with heart failure; I50.9 Heart failure, unspecified; E78.5 Hyperlipidemia, unspecified
CPT/HCPCS: 36415; 71045; 80053; 83880; 84484; 85025; 93005; 96374; 99285; J1938; J9999

== ENCOUNTER 2025-02-20 10:48 | Oncology outpatient (recurring) (ONCR) | payer MEDICARE, MEDICAID, SELFPAY ==
[2025-02-05 11:08] LABS: Hematocrit 26.9 % (37-53); Hemoglobin 8.60 g/dL (11.27-16.99); Mean Corpuscular HGB Conc 32.0 g/dL (30-55); Mean Corpuscular Hemoglobin 27.0 pg (27-33); Mean Corpuscular Volume 84.3 fl (82-101); Nucleated Red Blood Cells % 0 %; Platelet Count 114 10^3/cmm (157-399); Red Blood Count 3.19 10^6/uL (3.85-5.65); White Blood Count 5.23 10^3/uL (3.29-11.43)
== END 2025-03-02 23:59 | disposition home or self-care (01) ==
PROVIDERS: PCP Internal Medicine; Visit Provider Internal Medicine Medical Oncology
DX: D71.8 Other functional disorders of polymorphonuclear neutrophils (principal); F17.220 Nicotine dependence, chewing tobacco, uncomplicated; R60.9 Edema, unspecified
CPT/HCPCS: 36415; 85025; 99214

== ENCOUNTER 2025-03-13 05:41 | Inpatient (IN) | payer MEDICARE, MEDICAID, SELFPAY ==
--- OUTSIDE RECORDS SUMMARY | 2024-01-19 11:00 | XMS_ITS ---
Author Organization [employer] Address [address] [facility] [place] [address] Care Team Providers Care Application Support Consultant Name Role Phone EDI DILL Unavailable [phone] GAMA GARCIA Unavailable [phone] REASON FOR VISIT Cx by pts sister/ may call back to r/s-- Retention/VT Encounters Encounter Location Date Provider Diagnosis [employer], [employer] [address] [place] [address] 01/19/2024 GAMA GARCIA Plan Of Treatment Next Appt Details Provider Name:Kain Marroquin, 06/25/2025 02:00:00 PM, [address] [facility] [place], [address], Progress Notes * AMYMarciano LDOB: 4 (59 yo M)Acc No.[id number]:01/19/2024 Patient: Marciano HEDRICK Provider: SUMA Chaparro :1965 A ge:58 Y S ex:Male Date:01/19/2024 Address:[address], [place] Subjective: * Chief Complaints: * 1 . Cx by pts sister/ may call back to r/s-- Retention/VT. * Medical History: Objective: * Vitals: Assessment: Plan: * Treatment: * Billing Information: * Visit Code: * Procedure Codes: * Electronic signature of GAMA GARCIA APRN on 03/13/2025 at 06:00 AM BAG BLEACHER Sign off status: Pending * Provider: Tram Garcia APRN-HYDROPRESS OPERATOR Date: 0 01/19/2024 Generated for Miles silva/Poonam/Emiliano on: 05/13/2024 06:00 AM BAG BLEACHER
--- OUTSIDE RECORDS SUMMARY | 2024-01-24 08:30 | XMS_ITS ---
Author Organization [employer], [employer] Address [address] [facility] [place] [address] Care Team Providers Care Scientific Recruiter Name Role Phone EDI DILL Unavailable [phone] PHILLIP RAZO Unavailable [phone] REASON FOR VISIT retention/VT Encounters Encounter Location Date Provider Diagnosis [employer] [address] [facility] [place] [address] 01/24/2024 PHILLIP RAZO Plan Of Treatment Next Appt Details Provider Name:Kain Marroquin, 06/25/2025 02:00:00 PM, [address] [place], [address], Progress Notes * AMYMarciano BOLDEN LDOB: 4 (59 yo M)Acc No.[id number]:01/24/2024 Patient: Marciano HEDRICK Provider: She Razo APRN :1965 A ge:58 Y S ex:Male Date:01/24/2024 Address:[address], [place] Subjective: * Chief Complaints: * 1 . retention/VT. * Medical History: Objective: * Vitals: Assessment: Plan: * Treatment: * Billing Information: * Visit Code: * Procedure Codes: * Electronic signature of LORE RAZO APRN on 03/13/2025 at 06:04 AM HEDIS REGISTERED NURSE RN Sign off status: Pending * Provider: She Razo APRN Date: 0 01/24/2024 Generated for Miles silva/Poonam/Emiliano on: 1 05/13/2024 06:04 AM HEDIS REGISTERED NURSE RN
--- OUTSIDE RECORDS SUMMARY | 2025-01-03 | XMS_ITS ---
Author Organization [facility] Address [address] [place] [address] Care Team Providers Care Computer Laboratory Technician Name Role Phone FUENTES EDI Irene [phone] REASON FOR VISIT Cystoscopy @ MAIN OR (Charity Lift) Encounters Encounter Location Date Provider Diagnosis [facility], [facility] [address] [place] [facility] [address] 01/03/2025 EDI DILL Plan Of Treatment Next Appt Details Provider Name:Kain Marroquin, 06/25/2025 02:00:00 PM, [address] [place], [address], Progress Notes * Marciano REYES LDOB: 4 (59 yo M)Acc No.[id number]:01/03/2025 Patient: Marciano HEDRICK Provider: Tram DILL MD :1965 A ge:59 Y S ex:Male Date:01/03/2025 Address:[address], [place] * Billing Information: * Visit Code: * Procedure Codes: * Electronic signature of AUST IN MD FUENTES on 03/13/2025 at 05:59 AM AIR TRAFFIC CONTROL SUPERVISOR Sign off status: Pending * Provider: Tram DILL MD Date: 0 01/03/2025 Generated for Miles silva/Poonam/eTemilysmitting on: 1 05/13/2024 05:59 AM AIR TRAFFIC CONTROL SUPERVISOR
[2025-03-13] VITALS (16 sets, daily range): BP systolic 103–120; BP diastolic 61–85; PULSE 107–115; RESP 18–22; TEMP 36.8–37.3; O2SAT 92–99; BMI 39.3
--- NOTE | 2025-03-13 05:44 | XRR_ITS ---
PROCEDURE INFORMATION: Exam: XR Chest Exam date and time: 03/13/2025 5:46 AM Age: 59 years old Clinical indication: Pain; Other: SOB; Additional info: Dyspnea/cough TECHNIQUE: Imaging protocol: Radiologic exam of the chest. Views: 1 view. COMPARISON: CR XR chest 1V portable [id number] 02/19/2025 11:23 AM FINDINGS: Limitations: Patient is significantly rotated to the left. Lungs: Low lung volumes. Bibasilar interstitial opacities. Pleural spaces: Suspected small to moderate left pleural effusion. Heart/Mediastinum: Unremarkable. No cardiomegaly. Bones/joints: Unremarkable. XR/XR chest 1V portable [id number] IMPRESSION: 1. Suspected small to moderate left pleural effusion. 2. Bibasilar interstitial opacities. Possible edema.
--- NOTE | 2025-03-13 05:45 | ECG_ITS ---
[facility]: 2025-[facility]13 Pat Name: Marciano Alonso Department: Room: Gender: Male Bench Molder: : 1965 Requested By: Trell Recinos Order Number: [id number] Cla[place] MD: Parvez De Anda M.D. Measurements Intervals [place] Rate: 107 P: -86 SD: 128 QRS: -69 QRSD: 157 T: 104 QT: 439 QTc: 588 Interpretive Statements INDETERMINATE RHYTHM, POSSIBLE SINUS TACHYCARDIA NONSPECIFIC INTRAVENTRICULAR CONDUCTION DELAY POSSIBLE ANTERIOR MYOCARDIAL INFARCTION , PROBABLY OLD [30 ms Q WAVE IN V3/V4, OR R < 0.2 mV IN V4] Compared to ECG 02/19/2025 12:16:48 LOW VOLTAGE NO LONGER PRESENT Electronically Signed On 03-14-2025 20:32:17 FLUX MIXER by Parvez De Anda M.D. [email or web address]
--- NOTE | 2025-03-13 05:55 | W.ED.AMS ---
HPI - Altered Mental Status General: Chief Complaint: Altered Mental Status Stated Complaint: AMS Time Seen by Provider: 03/13/25 05:44 History of Present Illness: 59-year-old male who presents emergency room via EMS from the local [facility]. They reported altered mental status with hallucinations. Patient is aware of this that he could tell me about that specifically. I have been aggressively diuresing him and nursing on his report again 90 pounds in 2 weeks. He has a history of left [id number] amputation he has a protective boot on his right foot and has a ankle ulcer there. He has a history of atrial fibrillation and is on amiodarone and apixaban. Patient is also insulin-dependent diabetic. He denies shortness of breath chest pain or abdominal pain. He has a chronic indwelling Constantino. Related Data Home Medications ?Medication ?Instructions ?Recorded ?Confirmed allopurinol 300 mg tablet 300 mg PO DAILY 05/08/19 03/13/25 cholecalciferol (vitamin D3) 25 1,000 unit PO DAILY 05/08/19 03/13/25 mcg (1,000 unit) capsule montelukast 10 mg tablet 10 mg PO BEDTIME 05/08/19 03/13/25 metoclopramide HCl 10 mg tablet 10 mg PO QID Indigestion 04/16/22 03/13/25 (Reglan) multivit-minerals no.60-ferrous 1 tab PO DAILY 10/16/22 03/13/25 fumarate-folic acid 27 mg-1 mg tablet (Niva-Plus) metoprolol tartrate 100 mg tablet 100 mg PO BID 12/28/23 03/13/25 esomeprazole magnesium 40 mg 40 mg PO BID 04/24/24 03/13/25 capsule,delayed release lidocaine 5 % topical patch 1 patch topical BID 04/24/24 03/13/25 magnesium hydroxide 400 mg/5 mL 30 ml PO .Q72H PRN Constipation 04/24/24 03/13/25 oral suspension (Milk of Magnesia) sodium phosphates 19 gram-7 118 ml IL DAILY PRN Constipation 04/24/24 03/13/25 gram/118 mL enema (Fleet Enema) tamsulosin 0.4 mg capsule (Flomax) 0.4 mg PO BID 04/24/24 03/13/25 acetaminophen 500 mg capsule 500 mg PO Q6H PRN pain or fever 09/08/24 03/13/25 budesonide 160 mcg-glycopyr 9 2 inh inhalation BID 09/08/24 03/13/25 mcg-formot 4.8 mcg/actuation HFA inhaler (Breztri Aerosphere) albuterol sulfate 2.5 mg/3 mL 2.5 mg inhalation Q6H PRN Dyspnea 02/05/25 03/13/25 (0.083 %) solution for nebulization atorvastatin 20 mg tablet 20 mg PO DAILY 02/05/25 03/13/25 brimonidine 0.2 % eye drops 1 drp ophthalmic (eye) BID 02/05/25 03/13/25 brinzolamide 1 % eye 1 drp ophthalmic (eye) BID 02/05/25 03/13/25 drops,suspension diclofenac sodium 1 % topical gel 2 g topical TID PRN Pain 02/05/25 03/13/25 latanoprost 0.005 % eye drops 1 drp ophthalmic (eye) BEDTIME 02/05/25 03/13/25 white petrolatum-mineral oil 94 1 applic ophthalmic (eye) BEDTIME 02/05/25 03/13/25 %-3 % eye ointment (Systane Nighttime) triamcinolone acetonide 0.1 % 1 applic topical BID PRN skin 02/09/25 03/13/25 topical cream irritation on ears amiodarone 400 mg tablet 400 mg PO QAM 02/14/25 03/13/25 bisacodyl 5 mg tablet 10 mg PO DAILY PRN Constipation 02/14/25 03/13/25 miscellaneous medical supply 02/14/25 03/13/25 (Ocusoft Eyelid Cleansing Pads) semaglutide 1 mg/dose (4 mg/3 mL) 1 mg SUBCUT Q7D 02/14/25 03/13/25 subcutaneous pen injector (Ozempic) bumetanide 1 mg tablet 1 mg PO TID 03/13/25 03/13/25 bumetanide 2 mg tablet 2 mg PO TID 03/13/25 03/13/25 dextran 70-hypromellose eye drops 1 drp ophthalmic (eye) Q2H PRN 03/13/25 03/13/25 in a dropperette (Artificial Tears irritation (PF) drops in a dropperette) insulin aspart U-100 100 unit/mL 30 unit SUBCUT TID 03/13/25 03/13/25 (3 mL) subcutaneous pen insulin degludec 100 unit/mL (3 90 unit SUBCUT BEDTIME 03/13/25 03/13/25 mL) subcutaneous pen (Tresiba FlexTouch U-100 insulin) linaclotide 72 mcg capsule 72 mcg PO DAILY 03/13/25 03/13/25 (Linzess) menthol 0.8 % topical powder (Gold See Rx Instructions .Route .COMPLEX 03/13/25 03/13/25 Castillo Medicated Body) ondansetron 8 mg disintegrating 8 mg PO Q6H PRN Nausea And Vomiting 03/13/25 03/13/25 tablet potassium chloride 20 mEq 20 meq PO DAILY 03/13/25 03/13/25 tablet,extended release(part/cryst) spironolactone 50 mg tablet 50 mg PO DAILY 03/13/25 03/13/25 Previous Rx's ?Medication ?Instructions ?Recorded fluticasone propionate 50 1 spray intranasal BID #15.8 mL 07/18/19 mcg/actuation nasal spray,suspension hydrocodone 5 mg-acetaminophen 325 1 tab PO TID PRN pain 30 days #90 02/05/21 mg tablet tabs pregabalin 50 mg capsule 50 mg PO TID #90 caps 03/22/24 diltiazem HCl 180 mg 180 mg PO DAILY #30 caps 02/11/25 capsule,extended release 24 hr (Cardizem CD) cephalexin 500 mg capsule 500 mg PO Q8H #30 caps 03/16/25 Allergies Allergy/AdvReac Type Severity Reaction Status Date / Time Penicillins Allergy ALGY-Hives Verified 03/13/25 05:48 Sulfa (Sulfonamide Allergy ALGY-Hives Verified 03/13/25 05:48 Antibiotics) Review of Systems Const: Reports: malaise; Denies: fever(s) or chills Card: Denies: chest pain Resp: Denies: dyspnea GI: Denies: abdominal pain : Denies: dysuria, urinary frequency or urinary urgency Musc: Denies: neck pain or back pain Skin/Breast: Denies: rash Neuro: Reports: confusion PFSH ED PFSH: Medical History Chronic indwelling Constantino catheter Sleep apnea, unspecified Constipation Dry eye syndrome of unspecified lacrimal gland Unspecified glaucoma Gastro-esophageal reflux disease without esophagitis Benign prostatic hyperplasia without lower urinary tract symptoms Gout, unspecified Hyperlipidemia, unspecified 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 heart failure 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 Muscle weakness (generalized) COPD (chronic obstructive pulmonary disease) [facility] (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 of anticoagulants Chronic atrial fibrillation, unspecified Open wound of left lower quadrant of abdominal wall without penetration into peritoneal cavity Intertriginous dermatitis associated with moisture Morbid obesity Atrial flutter Encounter for screening colonoscopy Repeat screening colonoscopy in 10 years unless otherwise specified Chronic low back pain Chronic right shoulder pain Diabetes mellitus Shoulder pain BILATERAL Encounter for long-term use of opiate analgesic Right knee pain Amputation above knee Left Diabetes type 2, controlled Essential hypertension Dysuria-frequency syndrome Seizure BPH (benign prostatic hyperplasia) Primary osteoarthritis of both knees r knee Obstructive sleep apnea syndrome Surgical History History of left above knee amputation History of shoulder surgery 2001 x 2 L shoulder Family History Other Heart disease Hypertension Social History Smoking and tobacco/nicotine status: current some day tobacco/nicotine user smokeless tobacco Smokeless tobacco user: chewing tobacco Smokeless tobacco details: 2 cans a day Quit status (tobacco/nicotine): not considering quitting Second hand smoke exposure: No Alcohol intake: never Substance/Drug Use: never Additional social history: Patient chews a can of tobacco daily. 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 Physical Exam Const: GENERAL APPEARANCE: cooperative ORIENTATION/CONSCIOUSNESS: Yes awake HENMT: COMMON NORMALS: normocephalic, atraumatic and hearing grossly normal bilaterally HEAD & SCALP: normocephalic and atraumatic Resp: COMMON NORMALS: normal respiratory effort, No retractions, No use of accessory muscles and clear to auscultation bilaterally AUSCULTATION: clear to auscultation bilaterally Cardio: COMMON NORMALS: regular rate, regular rhythm and No murmurs present (Cardio) RATE: regular rate and tachycardic RHYTHM: regular rhythm GI: COMMON NORMALS: Soft to palpation and No hepatosplenomegaly present AUSCULTATION: Yes normoactive bowel sounds PALPATION: Yes Soft to palpation, No Tenderness to palpation present (GI), No Guarding due to palpation present (GI) and Yes No hepatosplenomegaly present Skin: OTHER: Superficial ulcer of the scrotum, medial malleolus left ankle and overlying the greater trochanter on the left hip. Course Vital Signs: Vital signs: Vital Signs Temperature 97.9 F 03/16/25 12:00 Pulse Rate 50 L 03/16/25 15:54 Respiratory Rate 22 H 03/16/25 15:54 Blood Pressure 160/81 03/16/25 15:54 Pulse Oximetry 92 03/16/25 15:54 Oxygen Delivery Me thod Nasal Cannula 03/16/25 11:59 Oxygen Flow Rate 2 03/16/25 11:29 Fraction of Inspir ed Oxygen 28 03/16/25 04:00 MDM - Altered Mental Status Medical Decision Making Acute metabolic encephalopathy based on clinical exam. Differential diagnosis includes cystitis pneumonia heart failure acute CO septicemia. Evaluate for source of infection CBC CMP UA lactic acid blood cultures lipase urinalysis. No history of any head trauma no focal neurologic deficits at this time suggestive of CVA. Will also do serial cardiac enzymes EKGs and CT of the abdomen. Patient presents with altered mental status difficult to assess he is tachycardic mildly anemic although he is slightly better than he has been recently. EKG appears to be sinus tachycardia. He is regular on auscultation. Sepsis fluid bolus given will see how he responds to this he remains tachycardic or increases may need to intervene with medications. No significant left shift. He does have an acute kidney injury with creatinine up to 1.7. His glucose is 329 which is not unusual for where he usually runs anion gap of 20.4 lactic acid 2.4. Elevated baseline troponin of 91 with a second troponin of 86 with a negative delta -4.8. His T. bili AST and ALT are slightly elevated however he has had this in the past. His bilirubin is about where it is run previously his liver enzymes are slightly increased from prior. Lipase elevated at 282. CT of the abdomen does not show any signs of pancreatic inflammation there is cholelithiasis no signs of acute cholecystitis. Chest x-ray shows small to moderate left pleural effusion suspect infiltrates bilaterally at the bases versus possible edema. Patient has cystitis as well with 21-50 white blood cells per high-power field and nitrate positive. Treat for sepsis antibiotics initiated fluid bolus given discussed with hospitalist orders written. Medical Records I reviewed the patient's medical records. Lab Data I reviewed the patient's lab results. 03/16/25 03:23 03/16/25 03:23 Radiology Impressions Chest X-Ray 03/13/25 05:44 IMPRESSION: 1. Suspected small to moderate left pleural effusion. 2. Bibasilar interstitial opacities. Possible edema. Abdomen/Pelvis CT 03/13/25 07:05 IMPRESSION: 1. No acute abdominal or pelvic abnormalities identified. 2. Overall the entire study is limited by patient's physical and clinical condition. 3. No ascites or significant soft tissue anasarca. 4. Splenomegaly. 5. Cholelithiasis without evidence for acute cholecystitis. 6. Cardiomegaly. 7. No renal obstruction. Laboratory Results WBC 6.79 10^3/uL (3.29-11.43) 03/13/25 05:25 RBC 3.76 10^6/uL (3.85-5.65) L 03/13/25 05:25 Hgb 9.60 g/dL (11.27-16.99) L 03/13/25 05:25 Hct 30.2 % (37-53) L 03/13/25 05:25 MCV 80.3 fl (82-101) L 03/13/25 05:25 MCH 25.5 pg (27-33) L 03/13/25 05:25 MCHC 31.8 g/dL (30-55) 03/13/25 05:25 RDW 20.8 % (12.1-15.1) H 03/13/25 05:25 Plt Count 209 10^3/cmm (157-399) 03/13/25 05:25 MPV 11.2 fL (7.4-10.4) H 03/13/25 05:25 Neut % (Auto) 75.9 % 03/13/25 05:25 Lymph % (Auto) 9.6 % 03/13/25 05:25 [place] % (Auto) 9.7 % 03/13/25 05:25 Eos % (Auto) 3.7 % 03/13/25 05:25 Baso % (Auto) 0.4 % 03/13/25 05:25 Neut # (Auto) 5.15 10^3/uL (1.8-7.7) 03/13/25 05:25 Lymph # (Auto) 0.7 10^3/uL (0.8-4.8) L 03/13/25 05:25 [place] # (Auto) 0.7 10^3/uL (0.2-0.9) 03/13/25 05:25 Eos # (Auto) 0.3 10^3/uL (0.0-0.8) 03/13/25 05:25 Baso # (Auto) 0.0 10^3/uL (0.0-0.1) 03/13/25 05:25 Nucleated RBC % (auto) 0 % 03/13/25 05:25 Nucleated RBCs # 0.0 /100WBC 03/13/25 05:25 Sodium 140 mmol/L (136-145) 03/13/25 05:25 Potassium 4.4 mmol/L (3.5-5.1) 03/13/25 05:25 Chloride 102 mmol/L (98-107) 03/13/25 05:25 Carbon Dioxide 22 mmol/L (22-29) 03/13/25 05:25 Anion Gap 20.4 (5-19) H 03/13/25 05:25 BUN 58 mg/dL (8-23) H 03/13/25 05:25 Creatinine 1.7 mg/dL (0.7-1.2) H 03/13/25 05:25 GFR Calculation 41.2 mL/min (90-130) L 03/13/25 05:25 Glucose 329 mg/dL (65-115) H 03/13/25 05:25 Calculated Osmolality 319 mOsm/kg (285-295) H 03/13/25 05:25 Lactic Acid 2.4 mmol/L (0.5-2.2) H 03/13/25 05:25 Calcium 9.8 mg/dL (8.5-10.5) 03/13/25 05:25 Magnesium 2.1 mg/dL (1.7-2.3) 03/13/25 05:25 Total Bilirubin 1.6 mg/dL (0.15-1.2) H 03/13/25 05:25 AST 140 U/L (0-40) H 03/13/25 05:25 ALT 88 U/L (0-41) H 03/13/25 05:25 Alkaline Phosphatase 126 U/L (40-130) 03/13/25 05:25 Troponin T Baseline 91 ng/L (0-15) H 03/13/25 05:25 Troponin T 120 Minute 86.17 ng/L (0-15) H 03/13/25 07:21 Delta Troponin T -4.83 ABS# (0-10) L 03/13/25 07:21 C-Reactive Protein 13.6 mg/L (0.0-4.9) H 03/13/25 05:25 NT-Pro-B Natriuret Pep 369 pg/mL (0-125) H 03/13/25 05:25 Total Protein 7.4 g/dL (6.6-8.7) 03/13/25 05:25 Albumin 3.7 g/dL (3.5-5.2) 03/13/25 05:25 Globulin 3.7 g/dL (1.3-4.6) 03/13/25 05:25 Lipase 282 U/L (13-60) H 03/13/25 05:25 Urine Color Yellow (Yellow) 03/13/25 05:49 Urine Appearance Clear (CLEAR) 03/13/25 05:49 Urine pH 8.5 (5-7) A 03/13/25 05:49 Ur Specific [place] 1.011 (1.005-1.030) 03/13/25 05:49 Urine Protein Negative (Negative) 03/13/25 05:49 Urine Glucose (UA) Negative (Normal) 03/13/25 05:49 Urine Ketones Negative (Negative) 03/13/25 05:49 Urine Blood 1+ (Negative) A 03/13/25 05:49 Urine Nitrate Positive (Negative) A 03/13/25 05:49 Urine Bilirubin Negative (Negative) 03/13/25 05:49 Urine Urobilinogen 0.2 mg/dL (Negative) 03/13/25 05:49 Ur Leukocyte Esterase 2+ (Negative) A 03/13/25 05:49 Urine RBC 0-2 /hpf (0-2) 03/13/25 05:49 Urine WBC 21-50 /hpf (0-5) H 03/13/25 05:49 Ur Squamous Epith Cells 0-5 /hpf (0-5) 03/13/25 05:49 Triple Phos Crystals 10-15 /hpf H 03/13/25 05:49 Amorphous Sediment Not Reportable 03/13/25 05:49 Urine Bacteria 2+ /hpf (NONE) H 03/13/25 05:49 Hyaline Casts 16.93 /lpf 03/13/25 05:49 Serum Ketones Negative (Negative) 03/13/25 05:25 Hepatitis A IgM Ab Non-reactive (Nonreactive) 03/13/25 05:25 Hep Bs Antigen Non-reactive (Nonreactive) 03/13/25 05:25 Hep B Core IgM Ab Non-reactive (Nonreactive) 03/13/25 05:25 Hepatitis C Antibody Non-reactive (Nonreactive) 03/13/25 05:25 Influenza A (PCR) Negative (Negative) 03/13/25 06:01 Influenza Type B (PCR) Negative (Negative) 03/13/25 06:01 RSV (PCR) Negative (Negative) 03/13/25 06:01 SARS-CoV-2 (PCR) Negative (Negative) 03/13/25 06:01 All radiology interpretation(s) finalized by discharge EKG Data EKG 1: I personally reviewed and interpreted this EKG as follows: Interpretation: EKG 03/13/2025 5:59 AM sinus tachycardia rate 107. [place] 128 QTc 5[address]. No acute ST changes. Compared to EKG 02/27/2025. No significant change noted. EKG 2: I personally reviewed and interpreted this EKG as follows: Interpretation: EKG 03/13/2025 8:43 AM sinus tachycardia rate 109 IL interval 141 QTc 588. Right bundle branch block noted. No acute changes from EKG done earlier same day no STEMI Discharge Plan Discharge Patient Disposition: Admitted As Inpatient Admit Provider: Jorge Solis Clinical Impression: History of left above knee amputation, JESSICA (acute kidney injury), Cystitis, Acute alteration in mental status Sepsis Qualifiers: Sepsis type: sepsis due to unspecified organism Sepsis acute organ dysfunction status: with acute organ dysfunction Severe sepsis acute organ dysfunction type: acute renal failure Acute renal failure type: unspecified Severe sepsis shock status: without septic shock Qualified Code(s): A41.9 - Sepsis, unspecified organism Atrial fibrillation Qualifiers: Atrial fibrillation type: unspecified chronic Qualified Code(s): I48.20 - Chronic atrial fibrillation, unspecified Pneumonia Qualifiers: Pneumonia type: due to unspecified organism Laterality: bilateral Lung location: lower lobe of lung Qualified Code(s): J18.9 - Pneumonia, unspecified organism Systolic congestive heart failure Qualifiers: Heart failure chronicity: acute on chronic Qualified Code(s): I50.23 - Acute on chronic systolic (congestive) heart failure Pancreatitis Qualifiers: Chronicity: acute Pancreatitis type: unspecified pancreatitis type Acute pancreatitis complication: unspecified Qualified Code(s): K85.90 - Acute pancreatitis without necrosis or infection, unspecified Decubitus skin ulcer Qualifiers: Pressure injury location: hip Pressure injury stage: stage 1 Laterality: left Qualified Code(s): L89.221 - Pressure ulcer of left hip, stage 1 Condition: Stable Discharge Diet: Cardiac and Diabetic Discharge Activity: Resume usual activity Coding Level of Care Code ED Mechanical Shovel Operator for Jeronimo Enamorado
--- OUTSIDE RECORDS SUMMARY | 2025-03-13 05:59 | XMS_ITS | Encounter Summary ---
Author Organization [facility] Address [address] [place] [address] Care Team Providers Care Space Operations Name Role Phone Cuba Solano MD Primary Care Provider [phone] Encounter Details Date Type Department Care Team (Late st Contact Info) Description 04/05/2007 Outpatient Historical [facility] [place] [id number] [address] Keyona Mccloud, ERECTION SHOP SUPERVISOR NO ADDRESS ON FILE Social History Tobacco Use Types Packs/Day Years Used Date Smoking Tobacco: Never Assessed Sex and Gender Information Value Date Recorded Sex Assigned at Not on file 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
--- OUTSIDE RECORDS SUMMARY | 2025-03-13 05:59 | XMS_ITS | Encounter Summary ---
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
--- OUTSIDE RECORDS SUMMARY | 2025-03-13 05:59 | XMS_ITS | Encounter Summary ---
Author Organization [facility] Address [address] [place] [address] Care Team Providers Care Teacher Assistant Name Role Phone Cuba Solano MD Primary Care Provider [phone] Encounter Details Date Type Department Care Team (Late st Contact Info) Description 03/07/2007 Outpatient Historical [place] 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
--- OUTSIDE RECORDS SUMMARY | 2025-03-13 05:59 | XMS_ITS | Encounter Summary ---
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
--- OUTSIDE RECORDS SUMMARY | 2025-03-13 05:59 | XMS_ITS | Encounter Summary ---
Author Organization [facility] Address [address] [place] [address] Care Team Providers Care Developmental Services Worker Name Role Phone Cuba Solano MD Primary Care Provider [phone] Encounter Details Date Type Department Care Team (Late st Contact Info) Description 04/10/2008 Outpatient Historical [facility] [address] [place] [address] Per Perea NP [address] [place] [address] Social History Tobacco Use Types Packs/Day Years Used Date Smoking Tobacco: Never Assessed Cigarettes Smokeless Tobacco: Current Chew Alcohol Use Standard Drinks/Week Comments No 0 (1 standard drink = 0.6 oz pur e alcohol) Sex and Gender Information Value Date Recorded Sex Assigned at Not on file 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
--- OUTSIDE RECORDS SUMMARY | 2025-03-13 05:59 | XMS_ITS | Encounter Summary ---
Author Organization [facility] Address [address] [place] [address] Care Team Providers Care Hospital Account Liaison Name Role Phone Cuba Solano MD Primary Care Provider [phone] Encounter Details Date Type Department Care Team (Late st Contact Info) Description 06/20/2007 Outpatient Historical [facility] [place] [id number] [address] Keyona Mccloud, PROGRAM TRAINER NO ADDRESS ON FILE Social History Tobacco Use Types Packs/Day Years Used Date Smoking Tobacco: Never Assessed Sex and Gender Information Value Date Recorded Sex Assigned at Not on file 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
--- OUTSIDE RECORDS SUMMARY | 2025-03-13 05:59 | XMS_ITS | Encounter Summary ---
Author Organization [facility] Address [address] [place] [address] Care Team Providers Care Mechanic Welder Name Role Phone Cuba Solano MD Primary Care Provider [phone] Encounter Details Date Type Department Care Team (Late st Contact Info) Description 03/19/2008 Outpatient Historical [facility] Keyona Mccloud, MERCHANDISING MANAGER NO ADDRESS ON FILE Social History Tobacco Use Types Packs/Day Years Used Date Smoking Tobacco: Never Assessed Cigarettes Smokeless Tobacco: Current Chew Alcohol Use Standard Drinks/Week Comments No 0 (1 standard drink = 0.6 oz pur e alcohol) Sex and Gender Information Value Date Recorded Sex Assigned at Not on file 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
--- OUTSIDE RECORDS SUMMARY | 2025-03-13 05:59 | XMS_ITS | Encounter Summary ---
Author Organization [facility] Address [address] [place] [address] Care Team Providers Care Safety Manager Name Role Phone Cuba Solano MD Primary Care Provider [phone] Encounter Details Date Type Department Care Team (Late st Contact Info) Description 02/24/2008 Outpatient Historical [facility] DEFAULT DEPARTMENT Kvng Kilpatrick MD NO ADDRESS ON FILE Social History Tobacco Use Types Packs/Day Years Used Date Smoking Tobacco: Never Assessed Cigarettes Smokeless Tobacco: Current Chew Alcohol Use Standard Drinks/Week Comments No 0 (1 standard drink = 0.6 oz pur e alcohol) Sex and Gender Information Value Date Recorded Sex Assigned at Not on file 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
--- OUTSIDE RECORDS SUMMARY | 2025-03-13 05:59 | XMS_ITS | Encounter Summary ---
Author Organization [facility] Address [address] [place] [address] Care Team Providers Care Weaving Machine Operator Name Role Phone Cuba Solano MD Primary Care Provider [phone] Encounter Details Date Type Department Care Team (Late st Contact Info) Description 03/01/2008 Outpatient Historical [facility] [address] [place] [address] Kvng Kilpatrick MD NO ADDRESS ON FILE Social History Tobacco Use Types Packs/Day Years Used Date Smoking Tobacco: Never Assessed Cigarettes Smokeless Tobacco: Current Chew Alcohol Use Standard Drinks/Week Comments No 0 (1 standard drink = 0.6 oz pur e alcohol) Sex and Gender Information Value Date Recorded Sex Assigned at Not on file 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
--- OUTSIDE RECORDS SUMMARY | 2025-03-13 05:59 | XMS_ITS | Encounter Summary ---
Author Organization [facility] Address [address] [place] [address] Care Team Providers Care Automotive Brake Technician Name Role Phone Cuba Solano MD Primary Care Provider [phone] Encounter Details Date Type Department Care Team (Late st Contact Info) Description 03/02/2008 Outpatient Historical [facility] [address] [place] [address] Kvng Kilpatrick MD NO ADDRESS ON FILE Social History Tobacco Use Types Packs/Day Years Used Date Smoking Tobacco: Never Assessed Cigarettes Smokeless Tobacco: Current Chew Alcohol Use Standard Drinks/Week Comments No 0 (1 standard drink = 0.6 oz pur e alcohol) Sex and Gender Information Value Date Recorded Sex Assigned at Not on file 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
--- OUTSIDE RECORDS SUMMARY | 2025-03-13 05:59 | XMS_ITS | Encounter Summary ---
Author Organization [facility] Address [address] [place] [address] Care Team Providers Care Lifestyle Consultant Name Role Phone Cuba Solano MD Primary Care Provider [phone] Encounter Details Date Type Department Care Team (Latest Contact Info) Description 11/12/2006 Outpatient Historical [facility] [place] [id number] [address] Keyona Mccloud, LUCIEN NO ADDRESS ON FILE Pain in Limb (Primary Dx) Social History Tobacco Use Types Packs/Day Years Used Date Smoking Tobacco: Never Assessed Sex and Gender Information Value Date Recorded Sex Assigned at Not on file 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
--- OUTSIDE RECORDS SUMMARY | 2025-03-13 05:59 | XMS_ITS | Encounter Summary ---
Author Organization [facility] Address [address] [place] [address] Care Team Providers Care Tectonophysicist Name Role Phone Cuba Solano MD Primary Care Provider [phone] Encounter Details Date Type Department Care Team (Latest Contact Info) Description 09/06/[address] [facility] 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
--- OUTSIDE RECORDS SUMMARY | 2025-03-13 05:59 | XMS_ITS | Clinical Summary ---
Author Organization [facility] Address [address] [place]: [place] [address] Care Team Providers Care Laundry Manager Name Role Phone Cuba Solano MD Primary Care Provider [phone] Allergies Active Allergy Reactions Criticality Noted Date [...] mo). 1 Each 0 01/22/20 15 Active allopurinoL (ZYLOPRIM) 300 mg tablet 400 mg. 01/25/20 25 Active albuterol (PROVENTIL,VENT AVINASH) 2.5 mg /3 mL (0.083 %) Solution for Nebulization 02/13/20 25 Active Tylenol Extra Strength 500 mg tablet 500 mg. 11/22/19 24 Active amiodarone (CORDARONE) 400 mg Tablet 400 mg. 02/22/20 25 Active atorvastatin (LIPITOR) 20 mg tablet 20 mg. 11/22/19 24 Active brimonidine (ALPHAGAN) 0.2 % solution 1 Drop. 02/13/20 25 Active brinzolamide (AZOPT) 1 % suspension 02/13/20 Active bumetanide (BUMEX) 2 mg tablet 2 mg. 02/22/20 Active bumetanide (BUMEX) 1 mg tablet 1 MG, = 1 TAB, PO, BID, # 60 TAB, Pharmacy: [facility], 182, cm, 11/22/23 19:48:00 CDT, Height CM, 179.3, KG, 11/30/23 5:21:00 CDT, Weight KG 11/30/19 Active cholecalciferol , vitamin D3, 1,000 unit Take 1,000 Tablets by mouth daily. Active diclofenac sodium (VOLTAREN) 1 % gel 1 Gram. 01/09/20 23 Active dilTIAZem (CARDIZEM CD, CARTIA XT) 180 mg Controlled Delivery 24 hour capsule 180 mg. 02/22/20 25 Active Eliquis 5 mg tablet 5 mg. 01/25/20 25 Active esomeprazole (NexIUM) 40 mg Capsule, Delayed Release(E.C.) 40 mg. 01/25/20 25 Active HYDROcodone-gabby taminophen (NORCO) 5-325 mg tablet 1 Tablet. 09/18/19 23 Active insulin aspart U-100 (NovoLOG) 100 unit/mL pen syringe 02/13/20 Active latanoprost (XALATAN) 0.005 % solution 1 Drop. 02/14/20 Active lidocaine (LIDODERM) 5 % Adhesive Patch, Medicated 02/13/20 Active linezolid (ZYVOX) 600 mg tablet 600 mg. 02/17/20 Active metoclopramide HCl (REGLAN) 10 mg tablet 10 mg. 01/25/20 25 Active metoprolol tartrate (LOPRESSOR) 100 mg tablet 100 mg. 11/22/19 Active montelukast (SINGULAIR) 10 mg tablet 10 mg. 11/22/19 24 Active Breztri Aerosphere 160 mcg-9mcg-4.8mcg /actuation HFA aerosol inhaler Take 2 Puffs by inhalation 2 times daily. Active Simbrinza 1-0.2 % Drops, Suspension 1 Drop. 11/22/19 24 Active Adults 50 Plus 0.4 mg-300 mcg- 250 mcg Tablet per tablet 01/25/20 Active pregabalin (LYRICA) 50 mg Capsule Take 1 capsule 3 times a day by oral route for 30 days. 11/22/19 Active Ozempic 1 mg/dose (4 mg/3 mL) Pen Injector 02/10/20 Active sennosides (SENOKOT) 8.6 mg tablet 8.6 mg. 01/07/20 Active spironolactone (ALDACTONE) 50 mg tablet 50 mg. 02/22/20 Active triamcinolone acetonide (KENALOG) 0.1 % Cream 02/13/20 Active linaCLOtide (LINZESS) 290 mcg capsule Take 1 Capsule (290 mcg) by mouth daily before breakfast. 30 Capsule 11 02/23/20 Active furosemide (LASIX) 80 mg tablet 80 mg. 02/15/20 Active HYDROXYETHYLCEL LULOSE, BULK, MISC every 6 hours as needed. Active magnesium hydroxide (HEALY MILK OF MAGNESIA ORAL) 30 mL. 01/07/20 Active metOLazone (ZAROXOLYN) 5 mg tablet 5 mg. 02/20/20 Active oxyBUTYnin (DITROPAN) 5 mg tablet 5 mg. 02/08/20 Active bisacodyL (DULCOLAX) 5 mg Delayed Release tablet Take 5 mg by mouth 1 time daily as needed for Constipation. Active fluticasone propionate (FLONASE) 50 mcg/spray Jackson, Suspension nasal inhaler Administer 2 Sprays in each nostril daily. Active predniSONE (DELTASONE) 20 mg tablet Take 20 mg by mouth daily. Active insulin degludec (Tresiba FlexTouch U-100) 100 unit/mL pen syringe Inject by subcutaneous injection daily at bedtime. Active potassium CHLORIDE (K-TAB) 20 mEq Extended Release tabletIndicatio ns:Hypokalemia Take 1 Tablet (20 mEq) by mouth 2 times daily with meals. 60 Tablet 1 02/28/20 Active insulin degludec (TRESIBA) 100 unit/mL pen syringe 02/13/20 25 2024 Discontinued linaCLOtide (LINZESS) 290 mcg capsule Take 1 Capsule (290 mcg) by mouth daily before breakfast. 30 Capsule 11 02/23/20 25 2024 Discontinued Active Problems Problem Noted Date Diagnosed Date [...] Encounters Date Type Department Care Team Description 03/02/[address] [place] [phone] Kat Vyas, NILES 03/02/[address] [address] Kat Vyas RN 03/01/[address] [address] Becki Falcon NP fax notes/CADEN request/scopes 02/28/2025 External Device Data STL ABSTRACTION Provider, Abstract 02/27/2025 External Device Data STL ABSTRACTION Provider, Abstract 02/27/2025 External Device Data STL ABSTRACTION Provider, Abstract 02/27/2025 External Device Data STL ABSTRACTION Provider, Abstract 02/27/[address] [place] [phone] Becki Falcon GRAPPLE YARDER OPERATOR Documentation 02/23/[address] [place] [phone] Becki Falcon NP Results 02/23/2025 External Device Data STL ABSTRACTION Provider, Abstract 02/23/2025 Results Follow-Up [address] [place] [phone] Becki Falcon NP CBC WITH DIFFERENTIAL, FERRITIN, IRON, TIBC, AND PERCENT SATURATION, Additional followed-up results: 12 02/22/2025 10:30 AM CDT Office Visit 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 Gender Identity Not on file Sexual Orientation Not on file Last Filed Vital Signs Vital Sign Reading Time Taken Comments Blood Pressure 117/56 02/22/2025 10:48 AM CDT Pulse 100 02/22/2025 10:48 AM CDT Temperature - - Respiratory Rate - - Oxygen Saturation - - Inhaled Oxygen Concentration - - Weight 169.4 kg (373 lb 6.4 oz) 025 10:48 AM CDT Height 182.9 cm (6') 02/22/2025 10:48 AM CDT Body Mass Index 50.64 02/22/2025 10:48 AM CDT Plan of Treatment Upcoming Encounters Date Type Department Care Team (Late st Contact Info) Description 06/06/2025 11:30 AM RESEARCH AND DEVELOPMENT 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- [place] [address] [place] [address] Becki Falcon NP [address] [place] [address] Health Maintenance Due Date Last Done Comments DIABETES ANNUAL FOOT EXAM 07/23/1981 DIABETES ANNUAL RETINAL EXAM 07/23/1981 DIABETES MICROALBUMIN ANNUAL SCREEN 07/23/1981 LDL CHOLESTEROL ANNUAL 07/23/1981 DTAP/TDAP/TD VACCINES (1 - Tdap) 07/23/1982 FIT-DNA Q 3 years 07/23/2008 FIT/FOBT Q 1 year 07/23/2008 RSV VACCINE (60+ or ) (1 - Risk 50-74 years 1-dose series) 07/23/2013 ZOSTER VACCINE (1 of 2) 07/23/2013 DIABETES HBA1C Q 6 MONTHS 01/23/2023 07/23/2022 INFLUENZA VACCINE (#1) 2024 4, 03/04/2023, 02/20/2022, Additional history exists Flex Sig/CT Colonography Q 5 years 01/25/20252019, 01/26/2020 COLORECTAL SCREENING 01/25/2030 01/26/2020, 01/26/20 20 Colorectal Cancer Screening 01/25/2030 COVID-19 Vaccine Completed 02/15/2025, 06/2020, 07/09/2020, Additional history exists Procedures Procedure Name Priority Date/Time Associated Diagnosis Comments COMPREHENSIVE METABOLIC PANEL Routine 02/22/2025 12:18 PM CDT TEST AUTHORIZATION Routine 02/22/2025 12 :18 PM CDT TRANSGLUTAMINASE IGA ANTIBODY Routine 02/22/2025 12:18 PM CDT Abdominal pain, unspecified abdominal location Anemia, chronic disease Anasarca Hepatomegaly Postprandial abdominal pain in left upper quadrant ALPHA-GAL PANEL Routine 02/22/2025 12:18 PM CDT Abdominal pain, unspecified abdominal location Anemia, chronic disease Anasarca Hepatomegaly Postprandial abdominal pain in left upper quadrant HEPATITIS C ANTIBODY Routine 02/22/2025 12:18 PM CDT Abdominal pain, unspecified abdominal location Anemia, chronic disease Anasarca Hepatomegaly Postprandial abdominal pain in left upper quadrant HEPATITIS B SURFACE ANTIGEN Routine 02/22/2025 12:18 PM CDT Abdominal pain, unspecified abdominal location Anemia, chronic disease Anasarca Hepatomegaly Postprandial abdominal pain in left upper quadrant CERULOPLASMIN Routine 02/22/2025 12:18 PM CDT Abdominal pain, unspecified abdominal location Anemia, chronic disease Anasarca Hepatomegaly Postprandial abdominal pain in left upper quadrant ALPHA 1 ANTITRYPSIN Routine 02/22/2025 1 2:18 PM CDT Abdominal pain, unspecified abdominal location Anemia, chronic disease Anasarca Hepatomegaly Postprandial abdominal pain in left upper quadrant ANKUR SCREEN W/REFLEX Routine 02/22/2025 1 2:18 PM CDT Abdominal pain, unspecified abdominal location Anemia, chronic disease Anasarca Hepatomegaly Postprandial abdominal pain in left upper quadrant BRAIN NATRIURETIC PEPTIDE, BNP OR PROBNP Routine 02/22/2025 12:18 PM CDT Abdominal pain, unspecified abdominal location Anemia, chronic disease Anasarca Hepatomegaly Postprandial abdominal pain in left upper quadrant C-REACTIVE PROTEIN Routine 02/22/2025 12 :18 PM CDT Abdominal pain, unspecified abdominal location Anemia, chronic disease Anasarca Hepatomegaly Postprandial abdominal pain in left upper quadrant VITAMIN D 25 HYDROXY Routine 02/22/2025 12:18 PM CDT Abdominal pain, unspecified abdominal location Anemia, chronic disease Anasarca Hepatomegaly Postprandial abdominal pain in left upper quadrant IRON, TIBC, AND PERCENT SATURATION Routine 02/22/2025 12:18 PM CDT Abdominal pain, unspecified abdominal location Anemia, chronic disease Anasarca Hepatomegaly Postprandial abdominal pain in left upper quadrant FERRITIN Routine 02/22/2025 12:18 PM CDT Abdominal pain, unspecified abdominal location Anemia, chronic disease Anasarca Hepatomegaly Postprandial abdominal pain in left upper quadrant CBC WITH DIFFERENTIAL Routine 02/22/2025 12:18 PM CDT Abdominal pain, unspecified abdominal location Anemia, chronic disease Anasarca Hepatomegaly Postprandial abdominal pain in left upper quadrant ENDOSCOPY, SIGMOID 01/26/2020 12 :00 AM CDT from Last 3 Months or Most Recently Relevant to Health Maintenance Results * ALPHA-GAL PANEL (02/22/2025 12:18 PM CDT) ALLERGEN BEEF <0.10 kU/L [facility], ALLERGEN BEEF (F27) CLASS 0 [facility], CARTAGENA (F88) IGE <0.10 kU/L [facility], ALLERGEN CARTAGENA (F88) CLASS 0 [facility], ALLERGEN PORK <0.10 kU/L [facility], ALLERGEN PORK (F26) CLASS 0 [facility], GALACTOSE - ALPHA -1, 3 - GALACTOSE, IGE <0.10 <0.10 kU/L [facility], Comment: Results above 0.1 kU/L indicate an allergen-specific IgE sensitization to ygazsjior-d-5,3-galactose, and such patients are at risk for delayed allergic reactions following beef, pork, or cartagena consumption. Circulating IgE antibodies may remain undetectable despite a convincing clinical history because these antibodies may be directed towards allergens revealed or altered during industrial processing, cooking, or digestion and therefore do not exist in the original food for which the patient is tested. Sometimes individuals diagnosed with chronic urticaria may develop IgE antibodies directed against human thyroglobulin. Such antibodies may cross-react with the bovine thyroglobulin used in ImmunoCAP(R) Allergen o215, alpha-Gal, leading to a false-positive test result. A definitive diagnosis should be based on the evaluation of both clinical and laboratory findings and not on any single diagnostic method. Additional information can be found at [email or web address] [facility], Comment: Specific Level of Allergen IGE Class kU/L Specific IGE Antibody ----- --------- 0 <0.10 Absent/Undetectable 0/1 0.10-0.34 Very Low Level 1 0.35-0.69 Low Level 2 0.70-3.49 Moderate Level 3 3.50-17.4 High Level 4 17.5-49.9 Very High Level 5 50-100 Very High Level 6 >100 Very High Level The clinical relevance of allergen results of 0.10-0.34 kU/L are undetermined and intended for specialist use. Allergens denoted with a include results using one or more analyte specific reagents. In those cases, the test was developed and its analytical performance characteristics have been determined by [facility]. It has not been cleared or approved by the U.S. Food and Drug Administration. This assay has been validated pursuant to the CLIA regulations and is used for clinical purposes. FASTING:NO FASTING: NO Test Performed at: [facility], [address] [place] [address] Maddie Chino MD,PhD,[place] Blood 02/22/2025 12:1 8 PM CDT 02/22/2025 12:19 PM CDT us Becki Falcon GRAPPLE YARDER OPERATOR CHEMISTRY ORDERABLES Final Resul t [facility] [phone] [facility], [address] [place] [address] * TEST AUTHORIZATION (02/22/2025 12:18 PM CDT) TEST NAME COMPREHENSIVE METABOLIC [facility] TEST CODE [id number] [facility] CLIENT CONTACT NIKHIL Peck [facility] SEE NOTE [facility] Comment: The laboratory testing on this patient was verbally requested or confirmed by the ordering physician or his or her authorized career services representative after contact with an employee of [facility]. Federal regulations require that we maintain on file written authorization for all laboratory testing. Accordingly we are asking that the ordering physician or his or her authorized career services representative sign a copy of this report and promptly return it to the client services account manager. Signature: SEE NOTE [facility] Comment: Fax number: [phone] FASTING:NO FASTING: NO Test Performed at: [facility] [address] [place] [address] Sheila Harper MD 02/22/2025 12:1 8 PM CDT 02/22/2025 12:19 PM CDT Becki Falcon GRAPPLE YARDER OPERATOR CHEMISTRY ORDERABLES Final Resul t [facility] [phone] [facility] [address] [place] [address] * HEPATITIS B SURFACE ANTIGEN (02/22/2025 12:18 PM CDT) Pathologist [facility] HEPATITIS B SURFACE AG NON-REACTI VE NON-REACTI VE [facility] Comment: For additional information, please refer to http://education.awe.sm/faq/VSR685 (This link is being provided for informational/ educational purposes only.) Test Performed at: [facility] [address] [place] [address] Sheila Harper MD Blood 02/22/2025 12:1 8 PM CDT 02/22/2025 12:19 PM CDT Becki Falcon GRAPPLE YARDER OPERATOR CHEMISTRY ORDERABLES Final Resul t Performing Organization Address [facility] de Phone Number [facility] [phone] [facility] [id number] [place] [phone] * TRANSGLUTAMINASE IGA ANTIBODY (02/22/2025 12:18 PM CDT) Pathologist [facility] TRANSGLUTAMINASE IGA AB <1.0 U/mL [facility] [place] Comment: Value Interpretation ----- <15.0 Antibody not detected > or = 15.0 Antibody detected FASTING:NO FASTING: NO Test Performed at: [facility] [address] [place] [address] Placido Tate Blood 02/22/2025 12:1 8 PM CDT 02/22/2025 12:19 PM CDT Becki Falcon NP CHEMISTRY ORDERABLES Final Resul t Performing Organization Address [facility] de Phone Number [facility] [phone] [facility] [address] [place] [address] * (ABNORMAL) IRON, TIBC, AND PERCENT SATURATION (02/22/2025 12:18 PM CDT) IRON 62 50 - 180 mcg/dL [facility] TIBC 422 250 - 425 mcg/dL (calc) [facility] IRON % SATURATION 15(L) 20 - 48 % (calc) [facility] Comment: Test Performed at: [facility] [address] [facility] [place] [address] Sheila Harper MD Blood 02/22/2025 12:1 8 PM CDT 02/22/2025 12:19 PM CDT Becki Falcon GRAPPLE YARDER OPERATOR CHEMISTRY ORDERABLES Final Resul t Performing Organization Address City/[facility]/ZIP Co de Phone Number [facility] [phone] [facility] [address] [place] [address] * HEPATITIS C ANTIBODY W REFLEX (02/22/2025 12:18 PM CDT) HEPATITIS C AB NON-REACTI VE NON-REACT [facility] Comment: HCV antibody was non-reactive. There is no laboratory evidence of HCV infection. In most cases, no further action is required. However, if recent HCV exposure is suspected, a test for HCV RNA (test code 13802) is suggested. For additional information please refer to http://education.awe.sm/faq/MBA44z8 (This link is being provided for informational/ educational purposes only.) Test Performed at: [facility] [address] [place] [address] BrigitteAlice Harper MD Blood 02/22/2025 12:1 8 PM CDT 02/22/2025 12:19 PM CDT Becki Falcon GRAPPLE YARDER OPERATOR CHEMISTRY ORDERABLES Final Resul t [facility] [phone] [facility] [address] [place] [address] * CERULOPLASMIN (02/22/2025 12:18 PM CDT) CERULOPLASMIN 29 14 - 30 mg/dL [facility] Comment: Test Performed at: [facility] [address] [place] [address] Sheila Harper MD Blood 02/22/2025 12:1 8 PM CDT 02/22/2025 12:19 PM CDT Becki Falcon GRAPPLE YARDER OPERATOR CHEMISTRY ORDERABLES Final Resul t [facility] [phone] [facility] [address] [place] [address] * (ABNORMAL) ALPHA 1 ANTITRYPSIN (02/22/2025 12:18 PM CDT) Pathologist [facility] ALPHA 1 ANTITRYPSIN 224(H) 83 - 199 mg/dL [facility] Comment: Test Performed at: [facility] [address] [place] [address] Sheila Harper MD Blood 02/22/2025 12:1 8 PM CDT 02/22/2025 12:19 PM CDT Becki Falcon GRAPPLE YARDER OPERATOR CHEMISTRY ORDERABLES Final Resul t [facility] [phone] [facility] [address] [place] [phone] * (ABNORMAL) CBC WITH DIFFERENTIAL (02/22/2025 12:18 PM CDT) Pathologist [facility] WBC 4.6 3.8 - 10.8 Thousand/u L [facility] RBC 3.15(L) 4.20 - 5.80 Million/uL [facility] HEMOGLOBIN 8.3(L) 13.2 - 17.1 g/dL [facility] HEMATOCRIT 25.8(L) 38.5 - 50.0 % [facility] MCV 81.9 80.0 - 100.0 fL [facility] MCH 26.3(L) 27.0 - 33.0 pg [facility] MCHC 32.2 32.0 - 36.0 g/dL [facility] Comment: For adults, a slight decrease in the calculated MCHC value (in the range of 30 to 32 g/dL) is most likely not clinically significant; however, it should be interpreted with caution in correlation with other red cell parameters and the patient's clinical condition. RDW 17.2(H) 11.0 - 15.0 % [facility] PLATELETS 140 140 - 400 Thousand/u L [facility] MPV 10.2 7.5 - 12.5 fL [facility] NEUTROPHIL ABSOLUTE 3,459 1,500 - 7,800 cells/uL [facility] LYMPHOCYTE ABSOLUTE 492(L) 850 - 3,900 cells/uL [facility] MONOCYTE ABSOLUTE 474 200 - 950 cells/uL [facility] EOSINOPHIL ABSOLUTE 143 15 - 500 cells/uL [facility] BASOPHILS ABSOLUTE 32 0 - 200 cells/uL [facility] NEUTROPHIL 75.2 % [facility] LYMPHOCYTES 10.7 % [facility] MONOCYTE 10.3 % [facility] EOSINOPHILS 3.1 % [facility] BASOPHILS 0.7 % [facility] Comment: FASTING:NO FASTING: NO Test Performed at: [facility] [address] [place] [address] Jose Rafael Mack Blood 02/22/2025 12:1 8 PM CDT 02/22/2025 12:19 PM CDT us Becki Falcon GRAPPLE YARDER OPERATOR HEMATOLOGY ORDERABLES Final Resu lt [facility] [phone] [facility] [address] [place] [address] * VITAMIN D 25 HYDROXY (02/22/2025 12:18 PM CDT) VITAMIN D, 25 OH, TOTAL 36 30 - 100 ng/mL [facility] Comment: Vitamin D Status 25-OH Vitamin D: Deficiency: <20 ng/mL Insufficiency: 20 - 29 ng/mL Optimal: > or = 30 ng/mL For 25-OH Vitamin D testing on patients on D2-supplementation and patients for whom quantitation of D2 and D3 fractions is required, the Quest[facility]ure[facility](TM) 25-OH VIT D, (D2,D3), LC/MS/MS is recommended: order code 31424 (patients >2yrs). See Note 1 Note 1 For additional information, please refer to http://education.[employer]/faq/IKN772 (This link is being provided for informational/ educational purposes only.) FASTING:NO FASTING: NO Test Performed at: [facility] [place] [address] BrigitteAlice Harper MD Blood 02/22/2025 12:1 8 PM CDT 02/22/2025 12:19 PM CDT Becki Falcon NP CHEMISTRY ORDERABLES Final Resul t [facility] [phone] [facility] [address] [place] [phone] * (ABNORMAL) C-REACTIVE PROTEIN (02/22/2025 12:18 PM CDT) CRP 15.0(H) <8.0 mg/L [facility] Comment: FASTING:NO FASTING: NO Test Performed at: [facility] [address] [facility] [place] [address] BrigitteAlice Harper MD Blood 02/22/2025 12:1 8 PM CDT 02/22/2025 12:19 PM CDT Becki Falcon NP CHEMISTRY ORDERABLES Final Resul t [facility] [phone] [facility] [place] [address] * ANKUR SCREEN W/REFLEX (02/22/2025 12:18 PM CDT) ANKUR SCREEN NEGATIVE NEGATIVE [facility] [place] Comment: ANKUR IFA is a first line screen for detecting the presence of up to approximately 150 autoantibodies in various autoimmune diseases. A negative ANKUR IFA result suggests an ANKUR-associated autoimmune disease is not present at this time, and does not reflex further. If there is high clinical suspicion for Sjogren's syndrome, testing for anti-SS-A/Ro antibody should be considered. Anti-Alessandra-1 antibody should be considered for clinically suspected inflammatory myopathies. AC-0: Negative International Consensus on ANKUR Patterns (https://doi.org/10.1515/ccrj-2802-9490) For additional information, please refer to http://education.[employer]/faq/HEN412 (This link is being provided for informational/ educational purposes only.) FASTING:NO FASTING: NO Test Performed at: [facility] [place] [address] Sheila Harper MD Blood 02/22/2025 12:1 8 PM CDT 02/22/2025 12:19 PM CDT Becki Falcon GRAPPLE YARDER OPERATOR CHEMISTRY ORDERABLES Final Resul t [facility] [phone] [place] [address] * (ABNORMAL) BRAIN NATRIURETIC PEPTIDE, BNP OR PROBNP (02/22/2025 12:18 PM CDT) Pathologist [facility] PROBNP, N TERMINAL 1,063(H) <125 pg/mL [facility] Comment: FASTING:NO FASTING: NO Test Performed at: [facility] [address] [facility] [place] [address] Sheila Harper MD Blood 02/22/2025 12:1 8 PM CDT 02/22/2025 12:19 PM CDT Becki Falcon GRAPPLE YARDER OPERATOR CHEMISTRY ORDERABLES Final Resul t Performing Organization Address City/[facility] Co de Phone Number [facility] [phone] [facility] [address] [place] [address] * FERRITIN (02/22/2025 12:18 PM CDT) Pathologist [facility] FERRITIN 30 24 - 380 ng/mL [facility] [facility] Comment: Test Performed at: [facility] [address] [place] [address] Sheila Harper MD Blood 02/22/2025 12:1 8 PM CDT 02/22/2025 12:19 PM CDT Becki Falcon GRAPPLE YARDER OPERATOR CHEMISTRY ORDERABLES Final Resul t Performing Organization Address [facility] de Phone Number [facility] [phone] [facility] [address] [place] [phone] * (ABNORMAL) COMPREHENSIVE METABOLIC PANEL (02/22/2025 12:18 PM CDT) [facility] GLUCOSE 166(H) 65 - 139 mg/dL [facility] Comment: Non-fasting reference interval BUN 42(H) 7 - 25 mg/dL [facility] CREATININE 1.49(H) 0.70 - 1.35 mg/dL [facility] GFR 53(L) > OR = 60 mL/min/1.7 3m2 [facility] BUN/CREAT RATIO 28(H) 6 - 22 (calc) [facility] SODIUM 139 135 - 146 mmol/L [facility] POTASSIUM 3.1(L) 3.5 - 5.3 mmol/L [facility] CHLORIDE 98 98 - 110 mmol/L [facility] CO2 29 20 - 32 mmol/L [facility] CALCIUM 9.6 8.6 - 10.3 mg/dL [facility] TOTAL PROTEIN 6.1 6.1 - 8.1 g/dL [facility] ALBUMIN 3.4(L) 3.6 - 5.1 g/dL [facility] GLOBULIN 2.7 1.9 - 3.7 g/dL (calc) [facility] ALBUMIN/GLOBULIN RATIO 1.3 1.0 - 2.5 (calc) [facility] BILIRUBIN TOTAL 1.6(H) 0.2 - 1.2 mg/dL [facility] ALKALINE PHOSPHATASE 82 35 - 144 U/L [facility] AST 55(H) 10 - 35 U/L [facility] ALT 37 9 - 46 U/L [facility] Comment: FASTING:NO FASTING: NO Test Performed at: [facility] [address] [place] [address] Sheila Harper MD 02/22/2025 12:1 8 PM CDT 02/22/2025 12:19 PM CDT us Becki Falcon GRAPPLE YARDER OPERATOR CHEMISTRY ORDERABLES Final Resul t [facility] [phone] [facility] [employer] [address] * ENDOSCOPY, SIGMOID (01/26/2020 12:00 AM CDT) Sgf Scanning GI PROCEDURE ORDERABLES Final Re sult from Last 3 Months or Most Recently Relevant to Health Maintenance Advance Directives For more information, please contact: [phone] Documents on File Type Date Recorded Patient Child Care Centre Manager Expl anation Advance Directive POA 02/22/2025 10:00 AM Advance Directive POA Care Teams Laundry Manager Relationship Specialty Start Date End Date Cuba Solano MD PCP - General 07/11/09
--- OUTSIDE RECORDS SUMMARY | 2025-03-13 05:59 | XMS_ITS | Encounter Summary ---
Author Organization [facility] Address [address] [place] [address] Care Team Providers Care Pilot Fuel Engineer Name Role Phone Cuba Solano MD Primary Care Provider +1 -[phone] Encounter Details Date Type Department Care Team (Late st Contact Info) Description 02/07/2008 Outpatient Historical [facility] [address] [place] [address] Per Perea NP [address] [place] [address] Social History Tobacco Use Types Packs/Day Years Used Date Smoking Tobacco: Never Assessed Cigarettes Smokeless Tobacco: Current Chew Alcohol Use Standard Drinks/Week Comments No 0 (1 standard drink = 0.6 oz pur e alcohol) Sex and Gender Information Value Date Recorded Sex Assigned at Not on file Legal Sex Male 2:49 AM PRIVATE CLIENT ADVISOR Gender Identity Not on file Sexual Orientation Not on file documented as of this encounter Plan of Treatment Not on file documented as of this encounter Visit Diagnoses Not on filedocumented in this encounter Care Teams Pilot Fuel Engineer Relationship Specialty Start Date End Date Cuba Solano MD PCP - General 07/11/09 documented as of this encounter
--- OUTSIDE RECORDS SUMMARY | 2025-03-13 05:59 | XMS_ITS | Encounter Summary ---
Author Organization [facility] Address [address] [place] [address] Care Team Providers Care Community Service Organization Director Name Role Phone Cuba Solano MD Primary Care Provider +1 -[phone] Encounter Details Date Type Department Care Team (Latest Contact Info) Description 11/30/2006 Outpatient Historical [facility]3] Family Medicine [place] [id number] [address] Keyona Mccloud, LUCIEN NO ADDRESS ON FILE Unspecified Otitis Media (Primary Dx); DM w/o Complication Type II (CMS/HCC); Asymptomatic Varicose Veins Social History Tobacco Use Types Packs/Day Years Used Date Smoking Tobacco: Never Assessed Sex and Gender Information Value Date Recorded Sex Assigned at Not on file Legal Sex Male 2:49 AM GENERATOR ASSEMBLER Gender Identity Not on file Sexual Orientation Not on file documented as of this encounter Plan of Treatment Not on file documented as of this encounter Visit Diagnoses Diagnosis Unspecified otitis media- Primary Type II or unspecified type diabetes mellitus 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, not stated as uncontrolled Asymptomatic varicose veins Uncomplicated varicose veins documented in this encounter Care Teams Community Service Organization Director Relationship Specialty Start Date End Date Cuba Solano MD PCP - General 07/11/09 documented as of this encounter
--- OUTSIDE RECORDS SUMMARY | 2025-03-13 05:59 | XMS_ITS | Encounter Summary ---
Author Organization [facility] Address [address] [place] [address] Care Team Providers Care Ramp And Cargo Supervisor Name Role Phone Cuba Solano MD Primary Care Provider +1 [phone] Encounter Details Date Type Department Care Team (Latest Contact Info) Description 06/17/2007 Outpatient Historical [place] [address] [place] [address] Celso Calvert MD [address] [place] [address] DM w/o Complication Type II, Uncontrolled Social History Tobacco Use Types Packs/Day Years Used Date Smoking Tobacco: Never Assessed Sex and Gender Information Value Date Recorded Sex Assigned at Not on file Legal Sex Male 2:[address] Gender Identity Not on file Sexual Orientation Not on file documented as of this encounter Plan of Treatment Not on file documented as of this encounter Visit Diagnoses Diagnosis Type II or unspecified type diabetes mellitus 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, uncontrolled documented in this encounter Care Teams Ramp And Cargo Supervisor Relationship Specialty Start Date End Date Cuba Solano MD PCP - General 07/11/09 documented as of this encounter
--- OUTSIDE RECORDS SUMMARY | 2025-03-13 05:59 | XMS_ITS | Encounter Summary ---
Author Organization [facility] Address [address] [place] [address] Care Team Providers Care Construction Executive Name Role Phone Cuba Solano MD Primary Care Provider +1 [phone] Encounter Details Date Type Department Care Team (Latest Contact Info) Description 05/11/2007 Outpatient Historical [facility] [address] [place] [address] Keyona Mccloud, LUCIEN NO ADDRESS ON FILE DM w/o Complication Type II, Uncontrolled Social History Tobacco Use Types Packs/Day Years Used Date Smoking Tobacco: Never Assessed Sex and Gender Information Value Date Recorded Sex Assigned at Not on file Legal Sex Male 2:49 AM DRAMATIC COACH Gender Identity Not on file Sexual Orientation Not on file documented as of this encounter Plan of Treatment Not on file documented as of this encounter Visit Diagnoses Diagnosis Type II or unspecified type diabetes mellitus 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, uncontrolled documented in this encounter Care Teams Construction Executive Relationship Specialty Start Date End Date Cuba Solano MD PCP - General 07/11/09 documented as of this encounter
--- OUTSIDE RECORDS SUMMARY | 2025-03-13 05:59 | XMS_ITS | Encounter Summary ---
Author Organization [facility] Address [address] [place] [address] Care Team Providers Care Global Recruiter Name Role Phone Cuba Solano MD Primary Care Provider +1 [phone] Encounter Details Date Type Department Care Team (Late st Contact Info) Description 12/15/2007 Outpatient Historical [facility] Keyona Mccloud, MESSAGE AND DELIVERY SERVICE PRICER NO ADDRESS ON FILE Social History Tobacco Use Types Packs/Day Years Used Date Smoking Tobacco: Never Assessed Cigarettes Smokeless Tobacco: Current Chew Alcohol Use Standard Drinks/Week Comments No 0 (1 standard drink = 0.6 oz pur e alcohol) Sex and Gender Information Value Date Recorded Sex Assigned at Not on file Legal Sex Male 2:49 AM SURVEYING TEACHER Gender Identity Not on file Sexual Orientation Not on file documented as of this encounter Plan of Treatment Not on file documented as of this encounter Visit Diagnoses Not on filedocumented in this encounter Care Teams Global Recruiter Relationship Specialty Start Date End Date Cuba Solano MD PCP - General 07/11/09 documented as of this encounter
--- OUTSIDE RECORDS SUMMARY | 2025-03-13 05:59 | XMS_ITS | Encounter Summary ---
Author Organization [facility] Address [address] [place] [address] Care Team Providers Care Avionics Installer Name Role Phone Cuba Solano MD Primary Care Provider +1 [phone] Encounter Details Date Type Department Care Team (Latest Contact Info) Description 12/10/2006 Outpatient Historical [facility] [address] [place] [address] Ash Lopez III, MD [address] [place] [address] Pain in Joint, Lower Leg (Primary Dx); Muscular Wasting and Disuse Atrophy, not Elsewhere Classified; Lower Limb Amputation, Above Knee (CMS/HCC) Social History Tobacco Use Types Packs/Day Years Used Date Smoking Tobacco: Never Assessed Sex and Gender Information Value Date Recorded Sex Assigned at Not on file Legal Sex Male 2:49 AM SENIOR TAX ANALYST Gender Identity Not on file Sexual Orientation Not on file documented as of this encounter Plan of Treatment Not on file documented as of this encounter Visit Diagnoses Diagnosis Pain in joint, lower leg- Primary Muscular wasting and disuse atrophy, 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
--- OUTSIDE RECORDS SUMMARY | 2025-03-13 05:59 | XMS_ITS | Encounter Summary ---
Author Organization [facility] Address [address] [place] [address] Care Team Providers Care Traffic Director Name Role Phone Cuba Solano MD Primary Care Provider +1 [phone] Encounter Details Date Type Department Care Team (Latest Contact Info) Description 12/30/2006 Outpatient Historical [facility]3] Family Medicine [place] [address] [address] Keyona Mccloud FNP NO ADDRESS ON FILE DM w/o Complication Type II (CMS/[facility]) (Primary Dx); Allergy, Unspecified not Elsewhere Classified; Unspecified Otitis Media; Neuropathy in Diabetes Social History Tobacco Use Types Packs/Day Years Used Date Smoking Tobacco: Never Assessed Sex and Gender Information Value Date Recorded Sex Assigned at Not on file Legal Sex Male 2:49 AM DAY HABILITATION SPECIALIST Gender Identity Not on file Sexual [...] diabetes documented in this encounter Care Teams Traffic Director Relationship Specialty Start Date End Date Cuba Solano MD PCP - General 07/11/09 documented as of this encounter
--- OUTSIDE RECORDS SUMMARY | 2025-03-13 05:59 | XMS_ITS | Encounter Summary ---
Author Organization [facility] Address [address] [place] [address] Care Team Providers Care Clinical Academic Allergist Name Role Phone Cuba Solano MD Primary Care Provider +1 [phone] Encounter Details Date Type Department Care Team (Late st Contact Info) Description 08/05/2006 Outpatient Historical [facility] Family Medicine [place] [address] [address] Social History Tobacco Use Types Packs/Day Years Used Date Smoking Tobacco: Never Assessed Sex and Gender Information Value Date Recorded Sex Assigned at Not on file Legal Sex Male 2:49 AM LASTEX THREAD WINDER Gender Identity Not on file Sexual Orientation Not on file documented as of this encounter Plan of Treatment Not on file documented as of this encounter Visit Diagnoses Not on filedocumented in this encounter Care Teams Clinical Academic Allergist Relationship Specialty Start Date End Date Cuba Solano MD PCP - General 07/11/09 documented as of this encounter
--- OUTSIDE RECORDS SUMMARY | 2025-03-13 05:59 | XMS_ITS | Encounter Summary ---
Author Organization [facility] Address [address] [place] [address] Care Team Providers Care Merchandise Director Name Role Phone Cuba Solano MD Primary Care Provider +1 -[phone] Encounter Details Date Type Department Care Team (Late st Contact Info) Description 02/23/2025 Results Follow-Up [facility] [address] [place] [address] Becki Falcon NP [address] [address] CBC WITH DIFFERENTIAL, FERRITIN, IRON, TIBC, AND PERCENT SATURATION, Additional followed-up results: 12 Social History Tobacco Use Types Packs/Day Years Used Date Smoking Tobacco: Never Assessed Smokeless Tobacco: Current Alcohol Use Standard Drinks/Week Comments No 0 (1 standard drink = 0.6 oz pur e alcohol) Sex and Gender Information Value Date Recorded Sex Assigned at Not on file Legal Sex Male 5:38 AM MACHINE CLOTHING REPLACER Gender Identity Not on file Sexual Orientation Not on file documented as of this encounter Plan of Treatment Upcoming Encounters Date Type Department Care Team (Late st Contact Info) Description 06/06/2025 11:30 AM MACHINE CLOTHING REPLACER Office Visit [facility] [address] Becki Falcon, NISHA [address] [address] documented as of this encounter Visit Diagnoses Not on filedocumented in this encounter Care Teams Merchandise Director Relationship Specialty Start Date End Date Cuba Solano MD PCP - General 07/11/09 documented as of this encounter
--- OUTSIDE RECORDS SUMMARY | 2025-03-13 05:59 | XMS_ITS | Encounter Summary ---
Author Organization [facility] Address [address] [place] [address] Care Team Providers Care Rn Liaison Name Role Phone Cuba Solano MD Primary Care Provider +1 [phone] Encounter Details Date Type Department Care Team (Latest Contact Info) Description 12/03/2006 Outpatient Historical [place] [address] [place] [address] Celso Calvert MD [address] [place] [address] DM w/o Complication Type II, Uncontrolled (Primary Dx) Social History Tobacco Use Types Packs/Day Years Used Date Smoking Tobacco: Never Assessed Sex and Gender Information Value Date Recorded Sex Assigned at Not on file Legal Sex Male 2:49 AM GOLF COURSE RANGER Gender Identity Not on file Sexual Orientation Not on file documented as of this encounter Plan of Treatment Not on file documented as of this encounter Visit Diagnoses Diagnosis Type II or unspecified type diabetes mellitus 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, uncontrolled- Primary documented in this encounter Care Teams Rn Liaison Relationship Specialty Start Date End Date Cuba Solano MD PCP - General 07/11/09 documented as of this encounter
--- OUTSIDE RECORDS SUMMARY | 2025-03-13 05:59 | XMS_ITS | Encounter Summary ---
Author Organization [facility] Address [address] [place] [address] Care Team Providers Care Third Helper Name Role Phone Cuba Solano MD Primary Care Provider +1 -[phone] Encounter Details Date Type Department Care Team (Latest Contact Info) Description 06/10/2007 Outpatient Historical [facility] [address] [place] [address] Keyona Mccloud, LUCIEN NO ADDRESS ON FILE DM w/o Complication Type II, Uncontrolled Social History Tobacco Use Types Packs/Day Years Used Date Smoking Tobacco: Never Assessed Sex and Gender Information Value Date Recorded Sex Assigned at Not on file Legal Sex Male 2:49 AM PROPOSAL REVIEW ANALYST Gender Identity Not on file Sexual Orientation Not on file documented as of this encounter Plan of Treatment Not on file documented as of this encounter Visit Diagnoses Diagnosis Type II or unspecified type diabetes mellitus 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, uncontrolled documented in this encounter Care Teams Third Helper Relationship Specialty Start Date End Date Cuba Solano MD PCP - General 07/11/09 documented as of this encounter
--- OUTSIDE RECORDS SUMMARY | 2025-03-13 05:59 | XMS_ITS | Encounter Summary ---
Author Organization [facility] Address [address] [place] [address] Care Team Providers Care Pl Sql Developer Name Role Phone Cuba Solano MD Primary Care Provider +1 [phone] Encounter Details Date Type Department Care Team [...] on file Legal Sex Male 2:49 AM OUTSIDE PLANT TECHNICIAN Gender Identity Not on file Sexual Orientation Not on file documented as of this encounter Plan of Treatment Not on file documented as of this encounter Visit Diagnoses Not on filedocumented in this encounter Care Teams Pl Sql Developer Relationship Specialty Start Date End Date Cuba Solano MD PCP - General 07/11/09 documented as of this encounter
--- OUTSIDE RECORDS SUMMARY | 2025-03-13 05:59 | XMS_ITS | Encounter Summary ---
Author Organization [facility] Address [address] [place] [address] Care Team Providers Care Fiber Worker Name Role Phone Cuba Solano MD Primary Care Provider +1 -[phone] Encounter Details Date Type Department Care Team (Late st Contact Info) Description 12/03/2006 Outpatient Historical [facility] Social History Tobacco Use Types Packs/Day Years Used Date Smoking Tobacco: Never Assessed Sex and Gender Information Value Date Recorded Sex Assigned at Not on file Legal Sex Male 2:49 AM QA AUTOMATION DEVELOPER Gender Identity Not on file Sexual Orientation Not on file documented as of this encounter Plan of Treatment Not on file documented as of this encounter Visit Diagnoses Not on filedocumented in this encounter Care Teams Fiber Worker Relationship Specialty Start Date End Date Cuba Solano MD PCP - General 07/11/09 documented as of this encounter
--- OUTSIDE RECORDS SUMMARY | 2025-03-13 05:59 | XMS_ITS | Encounter Summary ---
Author Organization [facility] Address [address] [place] [address] Care Team Providers Care Mercerizing Range Controller Name Role Phone Cuba Solano MD Primary Care Provider +1 -[phone] Encounter Details Date Type Department Care Team (Late st Contact Info) Description 09/27/2007 Outpatient Historical [facility] Other, [facility] NO ADDRESS ON FILE Social History Tobacco Use Types Packs/Day Years Used Date Smoking Tobacco: Never Assessed Sex and Gender Information Value Date Recorded Sex Assigned at Not on file Legal Sex Male 2:49 AM CARD SCRAPER Gender Identity Not on file Sexual Orientation Not on file documented as of this encounter Plan of Treatment Not on file documented as of this encounter Visit Diagnoses Not on filedocumented in this encounter Care Teams Mercerizing Range Controller Relationship Specialty Start Date End Date Cuba Solano MD PCP - General 07/11/09 documented as of this encounter
--- OUTSIDE RECORDS SUMMARY | 2025-03-13 05:59 | XMS_ITS | Encounter Summary ---
Author Organization [facility] Address [address] [place] [address] Care Team Providers Care Rubber Trimmer Name Role Phone Cuba Solano MD Primary Care Provider +1 -[phone] Encounter Details Date Type Department Care Team (Late st Contact Info) Description 09/21/2007 Outpatient Historical [facility] Keyona Mccloud, TIGER 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 NO ADDRESS ON FILE Social History Tobacco Use Types Packs/Day Years Used Date Smoking Tobacco: Never Assessed Sex and Gender Information Value Date Recorded Sex Assigned at Not on file Legal Sex Male 2:49 AM EXERCISER HORSE Gender Identity Not on file Sexual Orientation Not on file documented as of this encounter Plan of Treatment Not on file documented as of this encounter Visit Diagnoses Not on filedocumented in this encounter Care Teams Rubber Trimmer Relationship Specialty Start Date End Date Cuba Solano MD PCP - General 07/11/09 documented as of this encounter
--- OUTSIDE RECORDS SUMMARY | 2025-03-13 05:59 | XMS_ITS | Encounter Summary ---
Author Organization [facility] Address [address] [place] [address] Care Team Providers Care Newspaper Columnist Name Role Phone Cuba Solano MD Primary Care Provider +1 [phone] Encounter Details Date Type Department Care Team (Late st Contact Info) Description 05/31/2007 Outpatient Historical [facility] Family Medicine [place] [id number] [address] Keyona Mccloud, INVOICE 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 NO ADDRESS ON FILE Social History Tobacco Use Types Packs/Day Years Used Date Smoking Tobacco: Never Assessed Sex and Gender Information Value Date Recorded Sex Assigned at Not on file Legal Sex Male 2:49 AM RN ACUTE DIALYSIS Gender Identity Not on file Sexual Orientation Not on file documented as of this encounter Plan of Treatment Not on file documented as of this encounter Visit Diagnoses Not on filedocumented in this encounter Care Teams Newspaper Columnist Relationship Specialty Start Date End Date Cuba Solano MD PCP - General 07/11/09 documented as of this encounter
--- OUTSIDE RECORDS SUMMARY | 2025-03-13 05:59 | XMS_ITS | Encounter Summary ---
Author Organization [facility] Address [address] [place] [address] Care Team Providers Care Wood Furniture Assembler Name Role Phone Cuba Solano MD Primary Care Provider +1 -[phone] Encounter Details Date Type Department Care Team (Late st Contact Info) Description 06/20/2007 Outpatient Historical [facility] Other, [facility] NO ADDRESS ON FILE Social History Tobacco Use Types Packs/Day Years Used Date Smoking Tobacco: Never Assessed Sex and Gender Information Value Date Recorded Sex Assigned at Not on file Legal Sex Male 2:49 AM UNDERWRITING CLERKS SUPERVISOR Gender Identity Not on file Sexual Orientation Not on file documented as of this encounter Plan of Treatment Not on file documented as of this encounter Visit Diagnoses Not on filedocumented in this encounter Care Teams Wood Furniture Assembler Relationship Specialty Start Date End Date Cuba Solano MD PCP - General 07/11/09 documented as of this encounter
--- OUTSIDE RECORDS SUMMARY | 2025-03-13 06:00 | XMS_ITS | Encounter Summary ---
Author Organization [facility] Address [address] [place] [address] Care Team Providers Care Procurement Clerk Name Role Phone Cuba Solano MD Primary Care Provider [phone] Encounter Details Date Type Department Care Team (Latest Contact Info) Description 07/20/2005 [facility] [address] [place] [id number] Huey Upton Jr., MD [address] [place] [address] [address] [place] [address] DM w/o Complication Type II (CMS/HCC) (Primary Dx) Social History Tobacco Use Types Packs/Day Years Used Date Smoking Tobacco: Never Assessed Sex and Gender Information Value Date Recorded Sex Assigned at Not on file Legal Sex Male 2:49 AM RADIATION ONCOLOGY MANAGER Gender Identity Not on file Sexual Orientation Not on file documented as of this encounter Plan of Treatment Not on file documented as of this encounter Visit Diagnoses Diagnosis Type II or unspecified type diabetes mellitus 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, not stated as uncontrolled- Primary documented in this encounter Care Teams Procurement Clerk Relationship Specialty Start Date End Date Cuba Solano MD PCP - General 07/11/09 documented as of this encounter
--- OUTSIDE RECORDS SUMMARY | 2025-03-13 06:00 | XMS_ITS | Encounter Summary ---
Author Organization [facility] Address [address] [place] [address] Care Team Providers Care Mud Engineer Name Role Phone Cuba Solano MD Primary Care Provider [phone] Encounter Details Date Type Department Care Team (Latest Contact Info) Description 05/26/2005 Outpatient Historical [facility] [place] [id number] [address] Keyona Mccloud, LUCIEN NO ADDRESS ON FILE ALLERGY, UNSPECIFIED (Primary Dx); TRACHEA/BRONCHUS DIS NEC Social History Tobacco Use Types Packs/Day Years Used Date Smoking Tobacco: Never Assessed Sex and Gender Information Value Date Recorded Sex Assigned at Not on file Legal Sex Male 2:49 AM DONOR FLOOR TECHNICIAN Gender Identity Not on file Sexual Orientation Not on file documented as of this encounter Plan of Treatment Not on file documented as of this encounter Visit Diagnoses Diagnosis Allergy, unspecified not elsewhere classified- Primary Other diseases of trachea and bronchus, not elsewhere classified documented in this encounter Care Teams Mud Engineer Relationship Specialty Start Date End Date Cuba Solano MD PCP - General 07/11/09 documented as of this encounter
--- OUTSIDE RECORDS SUMMARY | 2025-03-13 06:00 | XMS_ITS | Encounter Summary ---
Author Organization [facility] Address [address] [place] [address] Care Team Providers Care Casino Worker Name Role Phone Cuba Solano MD Primary Care Provider [phone] Encounter Details Date Type Department Care Team (Late st Contact Info) Description 05/12/2005 Outpatient Historical [facility] [place] [id number] [address] Social History Tobacco Use Types Packs/Day Years Used Date Smoking Tobacco: Never Assessed Sex and Gender Information Value Date Recorded Sex Assigned at Not on file Legal Sex Male 2:49 AM REHABILITATION CONSULTANT Gender Identity Not on file Sexual Orientation Not on file documented as of this encounter Plan of Treatment Not on file documented as of this encounter Visit Diagnoses Not on filedocumented in this encounter Care Teams Casino Worker Relationship Specialty Start Date End Date Cuba Solano MD PCP - General 07/11/09 documented as of this encounter
--- OUTSIDE RECORDS SUMMARY | 2025-03-13 06:00 | XMS_ITS | Continuity of Care Document ---
Author Organization [facility] ([facility]) Address [address] [place] [address] Insurance Providers Payer Plan Claims Address Claims Phone Policy Number Group Number Relation Employer Guarantor Name Guarantor Guarantor Address Guarantor Phone [place] [facility] [place] [address] [address], [place] [address] tel:[phone] Self Marciano Alonso [address] [place] [address] [place] [facility] [address], [place] [address] tel:[phone] Self Marciano Alonso [address] [place] [id number] [employer] [facility] Part B Claims Departme nt, [address] [address], [place] [address] tel:[phone] Self Marciano Alonso [address] [place] [address] Problems Condition ICD9 code ICD10 code SNOMED code Start Date End Date S tatus Chronic atrial fibrillation, unspecified I48.20 02/24/2024 Active 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.01 02/24/2024 Active Unspecified atrial flutter I48.92 02/24/2024 Active Chronic obstructive pulmonary disease, unspecified J44.9 02/24/2024 Active Acute respiratory failure with hypoxia J96.01 02/24/2024 Active Muscle weakness (generalized) M62.81 02/28/2024 Active Need for assistance with personal care Z74.1 02/28/2024 Active [employer]modal customer service (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 of 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 Z79.51 02/24/2024 Activ e Sleep apnea, unspecified G47.30 02/24/2024 Active 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 heart failure I11.0 02/24/2024 Active Heart failure, unspecified I50.9 02/24/2024 Active Hypotension, unspecified I95.9 02/24/2024 Active Type 2 diabetes mellitus with diabetic neuropathy, unspecified E11.40 02/24/2024 Active long-term (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 of insulin Z79.4 02/24/2024 Active Long-term (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 of injectable non-insulin antidiabetic drugs Z79.85 02/24/2024 Active long-term (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 of oral hypoglycemic drugs Z79.84 [...] not elsewhere classified R16.2 01/15/2025 Acti ve Chronic obstructive pulmonary disease with (acute) exacerbation J44.1 01/21/2025 Acti ve Bladder disorder, unspecified N32.9 01/23/2025 Active Unspecified urinary incontinence R32 01/23/2025 Active Other ascites R18.8 02/05/2025 Active Other pancytopenia D61.818 02/05/2025 Ac tive Lymphedema, not elsewhere classified I89.0 02/07/2025 Active Chronic obstructive pulmonary disease, unspecified J44.9 02/12/2025 Active Body mass index (BMI) 50.0-59.9, adult Z68.43 02/08/2025 Active Body mass index (BMI) 40.0-44.9, adult Z68.41 02/25/2025 Active Other constipation K59.09 02/26/2025 Ac tive Results Test Result Date/Time Value / Unit Interp. Refere nce Range Blood chemistry[[id number]] Glucose [Mass/volume] in Serum or Plasma [2345-7] 03/12/2025 03:15 PM 184 mg/dL N Blood chemistry[[id number]] Glucose [Mass/volume] in Serum or Plasma [2345-7] 03/12/2025 06:08 PM 292 mg/dL N Blood chemistry[[id number]] Glucose [Mass/volume] in Serum or Plasma [2345-7] 03/12/2025 03:07 PM 421 mg/dL N Blood chemistry[[id number]] Glucose [Mass/volume] in Serum or Plasma [2345-7] 03/12/2025 10:34 AM 218 mg/dL N Blood chemistry[[id number]] Glucose [Mass/volume] in Serum or Plasma [2345-7] 03/11/2025 04:49 PM 222 mg/dL N Blood chemistry[[id number]] Glucose [Mass/volume] in Serum or Plasma [2345-7] 03/11/2025 05:10 PM 349 mg/dL N Blood chemistry[[id number]] Glucose [Mass/volume] in Serum or Plasma [2345-7] 03/11/2025 11:23 AM 220 mg/dL N Blood chemistry[[id number]] Glucose [Mass/volume] in Serum or Plasma [2345-7] 03/11/2025 12:35 PM 232 mg/dL N Blood chemistry[[id number]] Glucose [Mass/volume] in Serum or Plasma [2345-7] 03/10/2025 02:18 PM 283 mg/dL N Blood chemistry[[id number]] Glucose [Mass/volume] in Serum or Plasma [2345-7] 03/10/2025 11:01 AM 273 mg/dL N Blood chemistry[[id number]] Glucose [Mass/volume] in Serum or Plasma [2345-7] 03/10/2025 07:23 AM 238 mg/dL N Blood chemistry[[id number]] Glucose [Mass/volume] in Serum or Plasma [2345-7] 03/10/2025 12:29 PM 248 mg/dL N Blood chemistry[[id number]] Glucose [Mass/volume] in Serum or Plasma [2345-7] 03/09/2025 01:02 PM 218 mg/dL N Blood chemistry[[id number]] Glucose [Mass/volume] in Serum or Plasma [2345-7] 03/09/2025 05:59 PM 178 mg/dL N Blood chemistry[[id number]] Glucose [Mass/volume] in Serum or Plasma [2345-7] 03/09/2025 10:35 AM 165 mg/dL N Blood chemistry[[id number]] Glucose [Mass/volume] in Serum or Plasma [2345-7] 03/09/2025 01:39 PM 243 mg/dL N Blood chemistry[[id number]] Glucose [Mass/volume] in Serum or Plasma [2345-7] 03/08/2025 04:37 PM 249 mg/dL N Blood chemistry[[id number]] Glucose [Mass/volume] in Serum or Plasma [2345-7] 03/08/2025 11:33 AM 152 mg/dL N Blood chemistry[[id number]] Glucose [Mass/volume] in Serum or Plasma [2345-7] 03/08/2025 05:14 PM 193 mg/dL N Blood chemistry[[id number]] Glucose [Mass/volume] in Serum or Plasma [2345-7] 03/08/2025 12:55 PM 255 mg/dL N Blood chemistry[[id number]] Glucose [Mass/volume] in Serum or Plasma [2345-7] 03/07/2025 04:49 PM 232 mg/dL N Blood chemistry[[id number]] Glucose [Mass/volume] in Serum or Plasma [2345-7] 03/07/2025 11:27 AM 126 mg/dL N Blood chemistry[[id number]] Glucose [Mass/volume] in Serum or Plasma [2345-7] 03/07/2025 05:00 PM 250 mg/dL N Blood chemistry[[id number]] Glucose [Mass/volume] in Serum or Plasma [2345-7] 03/07/2025 01:08 PM 228 mg/dL N Blood chemistry[[id number]] Glucose [Mass/volume] in Serum or Plasma [2345-7] 03/06/2025 01:34 PM 255 mg/dL N Blood chemistry[[id number]] Glucose [Mass/volume] in Serum or Plasma [2345-7] 03/06/2025 05:01 PM 196 mg/dL N Blood chemistry[[id number]] Glucose [Mass/volume] in Serum or Plasma [2345-7] 03/06/2025 10:38 AM 213 mg/dL N Blood chemistry[[id number]] Glucose [Mass/volume] in Serum or Plasma [2345-7] 03/06/2025 12:57 PM 296 mg/dL N Blood chemistry[[id number]] Glucose [Mass/volume] in Serum or Plasma [2345-7] 03/05/2025 03:20 PM 201 mg/dL N Blood chemistry[[id number]] Glucose [Mass/volume] in Serum or Plasma [2345-7] 03/05/2025 10:33 AM 148 mg/dL N Blood chemistry[[id number]] Glucose [Mass/volume] in Serum or Plasma [2345-7] 03/05/2025 09:42 AM 215 mg/dL N Blood chemistry[[id number]] Glucose [Mass/volume] in Serum or Plasma [2345-7] 03/05/2025 02:00 PM 201 mg/dL N Blood chemistry[[id number]] Glucose [Mass/volume] in Serum or Plasma [2345-7] 03/04/2025 03:01 PM 242 mg/dL N Blood chemistry[[id number]] Glucose [Mass/volume] in Serum or Plasma [2345-7] 03/04/2025 05:34 PM 251 mg/dL N Blood chemistry[[id number]] Glucose [Mass/volume] in Serum or Plasma [2345-7] 03/04/2025 10:50 AM 204 mg/dL N Blood chemistry[[id number]] Glucose [Mass/volume] in Serum or Plasma [2345-7] 03/04/2025 01:04 PM 231 mg/dL N Blood chemistry[[id number]] Glucose [Mass/volume] in Serum or Plasma [2345-7] 03/03/2025 02:53 PM 485 mg/dL N Blood chemistry[[id number]] Glucose [Mass/volume] in Serum or Plasma [2345-7] 03/03/2025 04:26 PM 138 mg/dL N Blood chemistry[[id number]] Glucose [Mass/volume] in Serum or Plasma [2345-7] 03/03/2025 09:37 AM 196 mg/dL N Blood chemistry[[id number]] Glucose [Mass/volume] in Serum or Plasma [2345-7] 03/03/2025 12:32 PM 190 mg/dL N Blood chemistry[[id number]] Glucose [Mass/volume] in Serum or Plasma [2345-7] 03/02/2025 04:22 PM 226 mg/dL N Blood chemistry[[id number]] Glucose [Mass/volume] in Serum or Plasma [2345-7] 03/02/2025 12:16 PM 223 mg/dL N Blood chemistry[[id number]] Glucose [Mass/volume] in Serum or Plasma [2345-7] 03/02/2025 04:11 PM 201 mg/dL N Blood chemistry[[id number]] Glucose [Mass/volume] in Serum or Plasma [2345-7] 03/02/2025 12:03 PM 234 mg/dL N Blood chemistry[[id number]] Glucose [Mass/volume] in Serum or Plasma [2345-7] 03/01/2025 04:34 PM 224 mg/dL N Glucose [Mass/volume] in Serum or Plasma [2345-7] 03/01/2025 04:34 PM 291 mg/dL N Blood chemistry[[id number]] Glucose [Mass/volume] in Serum or Plasma [2345-7] 03/01/2025 10:44 AM 207 mg/dL N Blood chemistry[[id number]] Glucose [Mass/volume] in Serum or Plasma [2345-7] 03/01/2025 10:25 AM 308 mg/dL N Blood chemistry[[id number]] Glucose [Mass/volume] in Serum or Plasma [2345-7] 02/28/2025 02:53 PM 309 mg/dL N Blood chemistry[[id number]] Glucose [Mass/volume] in Serum or Plasma [2345-7] 02/28/2025 04:18 PM 228 mg/dL N Blood chemistry[[id number]] Glucose [Mass/volume] in Serum or Plasma [2345-7] 02/28/2025 09:37 AM 236 mg/dL N Blood chemistry[[id number]] Glucose [Mass/volume] in Serum or Plasma [2345-7] 02/28/2025 11:19 AM 192 mg/dL N Blood chemistry[[id number]] Glucose [Mass/volume] in Serum or Plasma [2345-7] 02/27/2025 12:37 PM 121 mg/dL N Blood chemistry[[id number]] Glucose [Mass/volume] in Serum or Plasma [2345-7] 02/27/2025 09:24 AM 120 mg/dL N Blood chemistry[[id number]] Glucose [Mass/volume] in Serum or Plasma [2345-7] 02/27/2025 06:13 AM 175 mg/dL N Blood chemistry[[id number]] Glucose [Mass/volume] in Serum or Plasma [2345-7] 02/27/2025 10:59 AM 267 mg/dL N Blood chemistry[[id number]] Glucose [Mass/volume] in Serum or Plasma [2345-7] 02/26/2025 01:06 PM 329 mg/dL N Blood chemistry[[id number]] Glucose [Mass/volume] in Serum or Plasma [2345-7] 02/26/2025 10:53 AM 181 mg/dL N Blood chemistry[[id number]] Glucose [Mass/volume] in Serum or Plasma [2345-7] 02/26/2025 04:23 PM 236 mg/dL N Glucose [Mass/volume] in Serum or Plasma [2345-7] 02/26/2025 04:23 PM 255 mg/dL N Blood chemistry[[id number]] Glucose [Mass/volume] in Serum or Plasma [2345-7] 02/25/2025 12:52 PM 278 mg/dL N Blood chemistry[[id number]] Glucose [Mass/volume] in Serum or Plasma [2345-7] 02/25/2025 09:03 AM 298 mg/dL N Blood chemistry[[id number]] Glucose [Mass/volume] in Serum or Plasma [2345-7] 02/25/2025 05:06 PM 197 mg/dL N Blood chemistry[[id number]] Glucose [Mass/volume] in Serum or Plasma [2345-7] 02/25/2025 12:41 PM 221 mg/dL N Blood chemistry[[id number]] Glucose [Mass/volume] in Serum or Plasma [2345-7] 02/24/2025 04:13 PM 302 mg/dL N Blood chemistry[[id number]] Glucose [Mass/volume] in Serum or Plasma [2345-7] 02/24/2025 04:10 PM 302 mg/dL N Blood chemistry[[id number]] Glucose [Mass/volume] in Serum or Plasma [2345-7] 02/24/2025 04:03 PM 275 mg/dL N Blood chemistry[[id number]] Glucose [Mass/volume] in Serum or Plasma [2345-7] 02/24/2025 12:40 PM 300 mg/dL N Blood chemistry[[id number]] Glucose [Mass/volume] in Serum or Plasma [2345-7] 02/23/2025 04:36 PM 304 mg/dL N Blood chemistry[[id number]] Glucose [Mass/volume] in Serum or Plasma [2345-7] 02/23/2025 09:48 AM 220 mg/dL N Blood chemistry[[id number]] Glucose [Mass/volume] in Serum or Plasma [2345-7] 02/23/2025 06:10 AM 217 mg/dL N Blood chemistry[[id number]] Glucose [Mass/volume] in Serum or Plasma [2345-7] 02/23/2025 01:42 PM 337 mg/dL N Blood chemistry[[id number]] Glucose [Mass/volume] in Serum or Plasma [2345-7] 02/22/2025 01:17 PM 379 mg/dL N Blood chemistry[[id number]] Glucose [Mass/volume] in Serum or Plasma [2345-7] 02/22/2025 10:32 AM 181 mg/dL N Blood chemistry[[id number]] Glucose [Mass/volume] in Serum or Plasma [2345-7] 02/22/2025 12:08 PM 281 mg/dL N Blood chemistry[[id number]] Glucose [Mass/volume] in Serum or Plasma [2345-7] 02/21/2025 01:31 PM 400 mg/dL N Blood chemistry[[id number]] Glucose [Mass/volume] in Serum or Plasma [2345-7] 02/21/2025 10:25 AM 358 mg/dL N Blood chemistry[[id number]] Glucose [Mass/volume] in Serum or Plasma [2345-7] 02/21/2025 04:55 PM 378 mg/dL N Blood chemistry[[id number]] Glucose [Mass/volume] in Serum or Plasma [2345-7] 02/21/2025 12:12 PM 372 mg/dL N Blood chemistry[[id number]] Glucose [Mass/volume] in Serum or Plasma [2345-7] 02/20/2025 04:24 PM 458 mg/dL N Blood chemistry[[id number]] Glucose [Mass/volume] in Serum or Plasma [2345-7] 02/20/2025 10:34 AM 361 mg/dL N Blood chemistry[[id number]] Glucose [Mass/volume] in Serum or Plasma [2345-7] 02/20/2025 11:11 AM 256 mg/dL N Blood chemistry[[id number]] Glucose [Mass/volume] in Serum or Plasma [2345-7] 02/19/2025 01:33 PM 246 mg/dL N Blood chemistry[[id number]] Glucose [Mass/volume] in Serum or Plasma [2345-7] 02/19/2025 10:44 AM 204 mg/dL N Blood chemistry[[id number]] Glucose [Mass/volume] in Serum or Plasma [2345-7] 02/19/2025 03:23 PM 265 mg/dL N Blood chemistry[[id number]] Glucose [Mass/volume] in Serum or Plasma [2345-7] 02/18/2025 04:18 PM 374 mg/dL N Blood chemistry[[id number]] Glucose [Mass/volume] in Serum or Plasma [2345-7] 02/18/2025 04:17 PM 388 mg/dL N Blood chemistry[[id number]] Glucose [Mass/volume] in Serum or Plasma [2345-7] 02/18/2025 09:13 AM 406 mg/dL N Blood chemistry[[id number]] Glucose [Mass/volume] in Serum or Plasma [2345-7] 02/18/2025 11:05 AM 323 mg/dL N Blood chemistry[[id number]] Glucose [Mass/volume] in Serum or Plasma [2345-7] 02/17/2025 02:08 PM 424 mg/dL N Blood chemistry[[id number]] Glucose [Mass/volume] in Serum or Plasma [2345-7] 02/17/2025 04:21 PM 403 mg/dL N Blood chemistry[[id number]] Glucose [Mass/volume] in Serum or Plasma [2345-7] 02/17/2025 09:41 AM 366 mg/dL N Blood chemistry[[id number]] Glucose [Mass/volume] in Serum or Plasma [2345-7] 02/17/2025 11:13 AM 441 mg/dL N Blood chemistry[[id number]] Glucose [Mass/volume] in Serum or Plasma [2345-7] 02/17/2025 05:50 PM 202 mg/dL N Blood chemistry[[id number]] Glucose [Mass/volume] in Serum or Plasma [2345-7] 02/16/2025 04:45 PM 351 mg/dL N Blood chemistry[[id number]] Glucose [Mass/volume] in Serum or Plasma [2345-7] 02/16/2025 10:08 AM 283 mg/dL N Blood chemistry[[id number]] Glucose [Mass/volume] in Serum or Plasma [2345-7] 02/16/2025 01:01 PM 204 mg/dL N Blood chemistry[[id number]] Glucose [Mass/volume] in Serum or Plasma [2345-7] 02/16/2025 05:27 PM 302 mg/dL N Blood chemistry[[id number]] Glucose [Mass/volume] in Serum or Plasma [2345-7] 02/15/2025 10:28 AM 213 mg/dL N Blood chemistry[[id number]] Glucose [Mass/volume] in Serum or Plasma [2345-7] 02/15/2025 04:38 PM 211 mg/dL N Blood chemistry[[id number]] Glucose [Mass/volume] in Serum or Plasma [2345-7] 02/15/2025 12:32 PM 146 mg/dL N Blood chemistry[[id number]] Glucose [Mass/volume] in Serum or Plasma [2345-7] 02/14/2025 01:46 PM 229 mg/dL N Blood chemistry[[id number]] Glucose [Mass/volume] in Serum or Plasma [2345-7] 02/14/2025 09:34 AM 132 mg/dL N Blood chemistry[[id number]] Glucose [Mass/volume] in Serum or Plasma [2345-7] 02/14/2025 12:38 PM 177 mg/dL N Blood chemistry[[id number]] Glucose [Mass/volume] in Serum or Plasma [2345-7] 02/14/2025 06:55 AM 231 mg/dL N Blood chemistry[[id number]] Glucose [Mass/volume] in Serum or Plasma [2345-7] 02/13/2025 04:50 PM 154 mg/dL N Blood chemistry[[id number]] Glucose [Mass/volume] in Serum or Plasma [2345-7] 02/13/2025 09:52 AM 189 mg/dL N Blood chemistry[[id number]] Glucose [Mass/volume] in Serum or Plasma [2345-7] 02/13/2025 12:51 PM 132 mg/dL N Blood chemistry[[id number]] Glucose [Mass/volume] in Serum or Plasma [2345-7] 02/13/2025 05:26 PM 139 mg/dL N Blood chemistry[[id number]] Glucose [Mass/volume] in Serum or Plasma [2345-7] 02/12/2025 09:36 AM 216 mg/dL N Blood chemistry[[id number]] Glucose [Mass/volume] in Serum or Plasma [2345-7] 02/12/2025 04:16 PM 257 mg/dL N Blood chemistry[[id number]] Glucose [Mass/volume] in Serum or Plasma [2345-7] 02/12/2025 02:29 PM 199 mg/dL N Blood chemistry[[id number]] Glucose [Mass/volume] in Serum or Plasma [2345-7] 02/11/2025 04:32 PM 279 mg/dL N Blood chemistry[[id number]] Glucose [Mass/volume] in Serum or Plasma [2345-7] 02/09/2025 02:28 PM 175 mg/dL N Blood chemistry[[id number]] Glucose [Mass/volume] in Serum or Plasma [2345-7] 02/09/2025 06:30 AM 156 mg/dL N Blood chemistry[[id number]] Glucose [Mass/volume] in Serum or Plasma [2345-7] 02/08/2025 09:07 AM 256 mg/dL N Blood chemistry[[id number]] Glucose [Mass/volume] in Serum or Plasma [2345-7] 02/08/2025 12:12 PM 377 mg/dL N Blood chemistry[[id number]] Glucose [Mass/volume] in Serum or Plasma [2345-7] 02/07/2025 03:58 PM 283 mg/dL N Blood chemistry[[id number]] Glucose [Mass/volume] in Serum or Plasma [2345-7] 02/07/2025 04:21 PM 449 mg/dL N Blood chemistry[[id number]] Glucose [Mass/volume] in Serum or Plasma [2345-7] 02/07/2025 09:55 AM 347 mg/dL N Blood chemistry[[id number]] Glucose [Mass/volume] in Serum or Plasma [2345-7] 02/07/2025 12:45 PM 442 mg/dL N Blood chemistry[[id number]] Glucose [Mass/volume] in Serum or Plasma [2345-7] 02/06/2025 12:45 PM 400 mg/dL N Blood chemistry[[id number]] Glucose [Mass/volume] in Serum or Plasma [2345-7] 02/06/2025 09:35 AM 351 mg/dL N Blood chemistry[[id number]] Glucose [Mass/volume] in Serum or Plasma [2345-7] 02/06/2025 11:51 AM 220 mg/dL N Blood chemistry[[id number]] Glucose [Mass/volume] in Serum or Plasma [2345-7] 02/05/2025 12:39 PM 377 mg/dL N Blood chemistry[[id number]] Glucose [Mass/volume] in Serum or Plasma [2345-7] 02/05/2025 11:16 AM 289 mg/dL N Blood chemistry[[id number]] Glucose [Mass/volume] in Serum or Plasma [2345-7] 02/05/2025 04:52 PM 320 mg/dL N Blood chemistry[[id number]] Glucose [Mass/volume] in Serum or Plasma [2345-7] 02/05/2025 01:23 PM 197 mg/dL N Blood chemistry[[id number]] Glucose [Mass/volume] in Serum or Plasma [2345-7] 02/04/2025 12:35 PM 259 mg/dL N Blood chemistry[[id number]] Glucose [Mass/volume] in Serum or Plasma [2345-7] 02/04/2025 04:22 PM 160 mg/dL N Blood chemistry[[id number]] Glucose [Mass/volume] in Serum or Plasma [2345-7] 02/04/2025 09:43 AM 184 mg/dL N Blood chemistry[[id number]] Glucose [Mass/volume] in Serum or Plasma [2345-7] 02/04/2025 11:46 AM 188 mg/dL N Blood chemistry[[id number]] Glucose [Mass/volume] in Serum or Plasma [2345-7] 02/03/2025 12:28 PM 264 mg/dL N Blood chemistry[[id number]] Glucose [Mass/volume] in Serum or Plasma [2345-7] 02/03/2025 04:19 PM 210 mg/dL N Blood chemistry[[id number]] Glucose [Mass/volume] in Serum or Plasma [2345-7] 02/03/2025 09:36 AM 197 mg/dL N Blood chemistry[[id number]] Glucose [Mass/volume] in Serum or Plasma [2345-7] 02/03/2025 12:20 PM 171 mg/dL N Blood chemistry[[id number]] Glucose [Mass/volume] in Serum or Plasma [2345-7] 02/02/2025 12:33 PM 265 mg/dL N Blood chemistry[[id number]] Glucose [Mass/volume] in Serum or Plasma [2345-7] 02/02/2025 04:04 PM 216 mg/dL N Blood chemistry[[id number]] Glucose [Mass/volume] in Serum or Plasma [2345-7] 02/02/2025 09:42 AM 146 mg/dL N Blood chemistry[[id number]] Glucose [Mass/volume] in Serum or Plasma [2345-7] 02/02/2025 11:52 AM 170 mg/dL N Blood chemistry[[id number]] Glucose [Mass/volume] in Serum or Plasma [2345-7] 02/01/2025 01:58 PM 246 mg/dL N Blood chemistry[[id number]] Glucose [Mass/volume] in Serum or Plasma [2345-7] 02/01/2025 10:31 AM 142 mg/dL N Blood chemistry[[id number]] Glucose [Mass/volume] in Serum or Plasma [2345-7] 02/01/2025 04:33 PM 112 mg/dL N Blood chemistry[[id number]] Glucose [Mass/volume] in Serum or Plasma [2345-7] 02/01/2025 12:22 PM 139 mg/dL N Blood chemistry[[id number]] Glucose [Mass/volume] in Serum or Plasma [2345-7] 01/31/2025 04:04 PM 221 mg/dL N Blood chemistry[[id number]] Glucose [Mass/volume] in Serum or Plasma [2345-7] 01/31/2025 06:22 AM 197 mg/dL N Blood chemistry[[id number]] Glucose [Mass/volume] in Serum or Plasma [2345-7] 01/31/2025 12:59 PM 162 mg/dL N Blood chemistry[[id number]] Glucose [Mass/volume] in Serum or Plasma [2345-7] 01/30/2025 12:22 PM 224 mg/dL N Blood chemistry[[id number]] Glucose [Mass/volume] in Serum or Plasma [2345-7] 01/30/2025 09:21 AM 208 mg/dL N Blood chemistry[[id number]] Glucose [Mass/volume] in Serum or Plasma [2345-7] 01/30/2025 12:58 PM 142 mg/dL N Blood chemistry[[id number]] Glucose [Mass/volume] in Serum or Plasma [2345-7] 01/30/2025 07:50 AM 209 mg/dL N Blood chemistry[[id number]] Glucose [Mass/volume] in Serum or Plasma [2345-7] 01/29/2025 08:58 AM 136 mg/dL N Blood chemistry[[id number]] Glucose [Mass/volume] in Serum or Plasma [2345-7] 01/29/2025 04:16 PM 193 mg/dL N Blood chemistry[[id number]] Glucose [Mass/volume] in Serum or Plasma [2345-7] 01/29/2025 11:37 AM 103 mg/dL N Blood chemistry[[id number]] Glucose [Mass/volume] in Serum or Plasma [2345-7] 01/28/2025 12:01 PM 296 mg/dL N Blood chemistry[[id number]] Glucose [Mass/volume] in Serum or Plasma [2345-7] 01/28/2025 04:19 PM 169 mg/dL N Blood chemistry[[id number]] Glucose [Mass/volume] in Serum or Plasma [2345-7] 01/28/2025 11:32 AM 107 mg/dL N Blood chemistry[[id number]] Glucose [Mass/volume] in Serum or Plasma [2345-7] 01/27/2025 12:21 PM 303 mg/dL N Blood chemistry[[id number]] Glucose [Mass/volume] in Serum or Plasma [2345-7] 01/27/2025 05:46 PM 296 mg/dL N Blood chemistry[[id number]] Glucose [Mass/volume] in Serum or Plasma [2345-7] 01/27/2025 09:51 AM 223 mg/dL N Blood chemistry[[id number]] Glucose [Mass/volume] in Serum or Plasma [2345-7] 01/27/2025 12:41 PM 326 mg/dL N Blood chemistry[[id number]] Glucose [Mass/volume] in Serum or Plasma [2345-7] 01/26/2025 01:01 PM 345 mg/dL N Blood chemistry[[id number]] Glucose [Mass/volume] in Serum or Plasma [2345-7] 01/26/2025 04:09 PM 294 mg/dL N Blood chemistry[[id number]] Glucose [Mass/volume] in Serum or Plasma [2345-7] 01/26/2025 09:33 AM 239 mg/dL N Blood chemistry[[id number]] Glucose [Mass/volume] in Serum or Plasma [2345-7] 01/26/2025 12:02 PM 135 mg/dL N Blood chemistry[[id number]] Glucose [Mass/volume] in Serum or Plasma [2345-7] 01/25/2025 12:34 PM 193 mg/dL N Blood chemistry[[id number]] Glucose [Mass/volume] in Serum or Plasma [2345-7] 01/25/2025 10:38 AM 152 mg/dL N Blood chemistry[[id number]] Glucose [Mass/volume] in Serum or Plasma [2345-7] 01/25/2025 04:24 PM 126 mg/dL N Blood chemistry[[id number]] Glucose [Mass/volume] in Serum or Plasma [2345-7] 01/25/2025 12:00 PM 180 mg/dL N Blood chemistry[[id number]] Glucose [Mass/volume] in Serum or Plasma [2345-7] 01/24/2025 01:12 PM 172 mg/dL N Blood chemistry[[id number]] Glucose [Mass/volume] in Serum or Plasma [2345-7] 01/24/2025 04:48 PM 114 mg/dL N Blood chemistry[[id number]] Glucose [Mass/volume] in Serum or Plasma [2345-7] 01/24/2025 09:35 AM 92 mg/dL N Blood chemistry[[id number]] Glucose [Mass/volume] in Serum or Plasma [2345-7] 01/24/2025 12:06 PM 122 mg/dL N Blood chemistry[[id number]] Glucose [Mass/volume] in Serum or Plasma [2345-7] 01/23/2025 03:46 PM 424 mg/dL N Blood chemistry[[id number]] Glucose [Mass/volume] in Serum or Plasma [2345-7] 01/23/2025 04:20 PM 294 mg/dL N Blood chemistry[[id number]] Glucose [Mass/volume] in Serum or Plasma [2345-7] 01/23/2025 09:42 AM 415 mg/dL N Blood chemistry[[id number]] Glucose [Mass/volume] in Serum or Plasma [2345-7] 01/23/2025 12:34 PM 261 mg/dL N Blood chemistry[[id number]] Glucose [Mass/volume] in Serum or Plasma [2345-7] 01/22/2025 12:54 PM 437 mg/dL N Blood chemistry[[id number]] Glucose [Mass/volume] in Serum or Plasma [2345-7] 01/22/2025 10:59 AM 345 mg/dL N Blood chemistry[[id number]] Glucose [Mass/volume] in Serum or Plasma [2345-7] 01/22/2025 02:51 PM 261 mg/dL N Blood chemistry[[id number]] Glucose [Mass/volume] in Serum or Plasma [2345-7] 01/22/2025 07:17 AM 398 mg/dL N Blood chemistry[[id number]] Glucose [Mass/volume] in Serum or Plasma [2345-7] 01/22/2025 05:56 PM 257 mg/dL N Blood chemistry[[id number]] Glucose [Mass/volume] in Serum or Plasma [2345-7] 01/21/2025 04:17 PM 348 mg/dL N Blood chemistry[[id number]] Glucose [Mass/volume] in Serum or Plasma [2345-7] 01/21/2025 09:33 AM 297 mg/dL N Blood chemistry[[id number]] Glucose [Mass/volume] in Serum or Plasma [2345-7] 01/21/2025 12:03 PM 445 mg/dL N Blood chemistry[[id number]] Glucose [Mass/volume] in Serum or Plasma [2345-7] 01/20/2025 12:59 PM 389 mg/dL N Blood chemistry[[id number]] Glucose [Mass/volume] in Serum or Plasma [2345-7] 01/20/2025 04:22 PM 193 mg/dL N Blood chemistry[[id number]] Glucose [Mass/volume] in Serum or Plasma [2345-7] 01/20/2025 12:30 PM 169 mg/dL N Blood chemistry[[id number]] Glucose [Mass/volume] in Serum or Plasma [2345-7] 01/19/2025 03:37 PM 393 mg/dL N Blood chemistry[[id number]] Glucose [Mass/volume] in Serum or Plasma [2345-7] 01/19/2025 04:24 PM 259 mg/dL N Blood chemistry[[id number]] Glucose [Mass/volume] in Serum or Plasma [2345-7] 01/19/2025 10:11 AM 243 mg/dL N Blood chemistry[[id number]] Glucose [Mass/volume] in Serum or Plasma [2345-7] 01/19/2025 11:56 AM 140 mg/dL N Blood chemistry[[id number]] Glucose [Mass/volume] in Serum or Plasma [2345-7] 01/18/2025 12:28 PM 226 mg/dL N Blood chemistry[[id number]] Glucose [Mass/volume] in Serum or Plasma [2345-7] 01/18/2025 04:51 PM 266 mg/dL N Blood chemistry[[id number]] Glucose [Mass/volume] in Serum or Plasma [2345-7] 01/18/2025 10:12 AM 230 mg/dL N Blood chemistry[[id number]] Glucose [Mass/volume] in Serum or Plasma [2345-7] 01/18/2025 12:18 PM 112 mg/dL N Blood chemistry[[id number]] Glucose [Mass/volume] in Serum or Plasma [2345-7] 01/17/2025 11:46 AM 336 mg/dL N Blood chemistry[[id number]] Glucose [Mass/volume] in Serum or Plasma [2345-7] 01/17/2025 04:18 PM 264 mg/dL N Blood chemistry[[id number]] Glucose [Mass/volume] in Serum or Plasma [2345-7] 01/17/2025 08:46 AM 261 mg/dL N Blood chemistry[[id number]] Glucose [Mass/volume] in Serum or Plasma [2345-7] 01/17/2025 11:18 AM 237 mg/dL N Blood chemistry[[id number]] Glucose [Mass/volume] in Serum or Plasma [2345-7] 01/16/2025 03:33 PM 397 mg/dL N Blood chemistry[[id number]] Glucose [Mass/volume] in Serum or Plasma [2345-7] 01/16/2025 04:36 PM 371 mg/dL N Blood chemistry[[id number]] Glucose [Mass/volume] in Serum or Plasma [2345-7] 01/16/2025 11:42 AM 111 mg/dL N Blood chemistry[[id number]] Glucose [Mass/volume] in Serum or Plasma [2345-7] 01/15/2025 01:23 PM 266 mg/dL N Blood chemistry[[id number]] Glucose [Mass/volume] in Serum or Plasma [2345-7] 01/15/2025 04:49 PM 145 mg/dL N Blood chemistry[[id number]] Glucose [Mass/volume] in Serum or Plasma [2345-7] 01/15/2025 09:33 AM 188 mg/dL N Blood chemistry[[id number]] Glucose [Mass/volume] in Serum or Plasma [2345-7] 01/15/2025 09:27 AM 264 mg/dL N Blood chemistry[[id number]] Glucose [Mass/volume] in Serum or Plasma [2345-7] 01/14/2025 12:53 PM 355 mg/dL N Blood chemistry[[id number]] Glucose [Mass/volume] in Serum or Plasma [2345-7] 01/14/2025 04:26 PM 362 mg/dL N Blood chemistry[[id number]] Glucose [Mass/volume] in Serum or Plasma [2345-7] 01/14/2025 09:41 AM 256 mg/dL N Blood chemistry[[id number]] Glucose [Mass/volume] in Serum or Plasma [2345-7] 01/13/2025 09:53 AM 462 mg/dL N Blood chemistry[[id number]] Glucose [Mass/volume] in Serum or Plasma [2345-7] 01/13/2025 04:36 PM 329 mg/dL N Blood chemistry[[id number]] Glucose [Mass/volume] in Serum or Plasma [2345-7] 01/13/2025 11:41 AM 247 mg/dL N Blood chemistry[[id number]] Glucose [Mass/volume] in Serum or Plasma [2345-7] 01/12/2025 12:21 PM 244 mg/dL N Blood chemistry[[id number]] Glucose [Mass/volume] in Serum or Plasma [2345-7] 01/12/2025 04:18 PM 212 mg/dL N Blood chemistry[[id number]] Glucose [Mass/volume] in Serum or Plasma [2345-7] 01/12/2025 09:45 AM 207 mg/dL N Blood chemistry[[id number]] Glucose [Mass/volume] in Serum or Plasma [2345-7] 01/12/2025 12:13 PM 206 mg/dL N Blood chemistry[[id number]] Glucose [Mass/volume] in Serum or Plasma [2345-7] 01/11/2025 12:18 PM 339 mg/dL N Blood chemistry[[id number]] Glucose [Mass/volume] in Serum or Plasma [2345-7] 01/11/2025 10:41 AM 416 mg/dL N Blood chemistry[[id number]] Glucose [Mass/volume] in Serum or Plasma [2345-7] 01/11/2025 04:30 PM 340 mg/dL N Blood chemistry[[id number]] Glucose [Mass/volume] in Serum or Plasma [2345-7] 01/11/2025 12:27 PM 188 mg/dL N Blood chemistry[[id number]] Glucose [Mass/volume] in Serum or Plasma [2345-7] 01/10/2025 01:29 PM 402 mg/dL N Blood chemistry[[id number]] Glucose [Mass/volume] in Serum or Plasma [2345-7] 01/10/2025 04:33 PM 367 mg/dL N Blood chemistry[[id number]] Glucose [Mass/volume] in Serum or Plasma [2345-7] 01/10/2025 09:33 AM 360 mg/dL N Blood chemistry[[id number]] Glucose [Mass/volume] in Serum or Plasma [2345-7] 01/10/2025 10:38 AM 329 mg/dL N Blood chemistry[[id number]] Glucose [Mass/volume] in Serum or Plasma [2345-7] 01/09/2025 12:26 PM 394 mg/dL N Blood chemistry[[id number]] Glucose [Mass/volume] in Serum or Plasma [2345-7] 01/09/2025 04:39 PM 400 mg/dL N Blood chemistry[[id number]] Glucose [Mass/volume] in Serum or Plasma [2345-7] 01/09/2025 10:17 AM 368 mg/dL N Blood chemistry[[id number]] Glucose [Mass/volume] in Serum or Plasma [2345-7] 01/09/2025 12:17 PM 289 mg/dL N Blood chemistry[[id number]] Glucose [Mass/volume] in Serum or Plasma [2345-7] 01/08/2025 04:22 PM 344 mg/dL N Blood chemistry[[id number]] Glucose [Mass/volume] in Serum or Plasma [2345-7] 01/08/2025 11:23 AM 228 mg/dL N Blood chemistry[[id number]] Glucose [Mass/volume] in Serum or Plasma [2345-7] 01/08/2025 09:28 AM 247 mg/dL N Blood chemistry[[id number]] Glucose [Mass/volume] in Serum or Plasma [2345-7] 01/08/2025 12:39 PM 250 mg/dL N Blood chemistry[[id number]] Glucose [Mass/volume] in Serum or Plasma [2345-7] 01/07/2025 01:00 PM 295 mg/dL N Blood chemistry[[id number]] Glucose [Mass/volume] in Serum or Plasma [2345-7] 01/07/2025 04:34 PM 337 mg/dL N Blood chemistry[[id number]] Glucose [Mass/volume] in Serum or Plasma [2345-7] 01/07/2025 10:12 AM 208 mg/dL N Blood chemistry[[id number]] Glucose [Mass/volume] in Serum or Plasma [2345-7] 01/07/2025 12:11 PM 244 mg/dL N Blood chemistry[[id number]] Glucose [Mass/volume] in Serum or Plasma [2345-7] 01/06/2025 12:52 PM 205 mg/dL N Blood chemistry[[id number]] Glucose [Mass/volume] in Serum or Plasma [2345-7] 01/06/2025 04:14 PM 230 mg/dL N Blood chemistry[[id number]] Glucose [Mass/volume] in Serum or Plasma [2345-7] 01/06/2025 09:31 AM 205 mg/dL N Blood chemistry[[id number]] Glucose [Mass/volume] in Serum or Plasma [2345-7] 01/06/2025 12:06 PM 153 mg/dL N Blood chemistry[[id number]] Glucose [Mass/volume] in Serum or Plasma [2345-7] 01/05/2025 11:55 AM 206 mg/dL N Blood chemistry[[id number]] Glucose [Mass/volume] in Serum or Plasma [2345-7] 01/05/2025 10:16 AM 161 mg/dL N Blood chemistry[[id number]] Glucose [Mass/volume] in Serum or Plasma [2345-7] 01/05/2025 05:26 PM 274 mg/dL N Blood chemistry[[id number]] Glucose [Mass/volume] in Serum or Plasma [2345-7] 01/05/2025 12:10 PM 216 mg/dL N Blood chemistry[[id number]] Glucose [Mass/volume] in Serum or Plasma [2345-7] 01/04/2025 04:50 PM 283 mg/dL N Blood chemistry[[id number]] Glucose [Mass/volume] in Serum or Plasma [2345-7] 01/04/2025 01:43 PM 418 mg/dL N Blood chemistry[[id number]] Glucose [Mass/volume] in Serum or Plasma [2345-7] 01/04/2025 12:24 PM 161 mg/dL N Blood chemistry[[id number]] Glucose [Mass/volume] in Serum or Plasma [2345-7] 01/04/2025 09:45 AM 234 mg/dL N Blood chemistry[[id number]] Glucose [Mass/volume] in Serum or Plasma [2345-7] 01/03/2025 04:48 PM 148 mg/dL N Blood chemistry[[id number]] Glucose [Mass/volume] in Serum or Plasma [2345-7] 01/03/2025 01:46 PM 180 mg/dL N Blood chemistry[[id number]] Glucose [Mass/volume] in Serum or Plasma [2345-7] 01/03/2025 09:12 AM 161 mg/dL N Blood chemistry[[id number]] Glucose [Mass/volume] in Serum or Plasma [2345-7] 01/02/2025 04:37 PM 270 mg/dL N Blood chemistry[[id number]] Glucose [Mass/volume] in Serum or Plasma [2345-7] 01/02/2025 04:27 PM 355 mg/dL N Blood chemistry[[id number]] Glucose [Mass/volume] in Serum or Plasma [2345-7] 01/02/2025 11:34 AM 240 mg/dL N Blood chemistry[[id number]] Glucose [Mass/volume] in Serum or Plasma [2345-7] 01/02/2025 10:26 AM 227 mg/dL N Blood chemistry[[id number]] Glucose [Mass/volume] in Serum or Plasma [2345-7] 01/01/2025 04:50 PM 286 mg/dL N Blood chemistry[[id number]] Glucose [Mass/volume] in Serum or Plasma [2345-7] 01/01/2025 01:29 PM 400 mg/dL N Blood chemistry[[id number]] Glucose [Mass/volume] in Serum or Plasma [2345-7] 01/01/2025 10:03 AM 282 mg/dL N Blood chemistry[[id number]] Glucose [Mass/volume] in Serum or Plasma [2345-7] 01/01/2025 09:54 AM 265 mg/dL N Blood chemistry[[id number]] Glucose [Mass/volume] in Serum or Plasma [5-7] 12/31/2024 04:25 PM 286 mg/dL N Blood chemistry[[id number]] Glucose [Mass/volume] in Serum or Plasma [2345-7] 12/31/2024 12:08 PM 426 mg/dL N Blood chemistry[[id number]] Glucose [Mass/volume] in Serum or Plasma [5-7] 12/31/2024 12:07 PM 203 mg/dL N Blood chemistry[[id number]] Glucose [Mass/volume] in Serum or Plasma [5-7] 12/31/2024 09:50 AM 369 mg/dL N Blood chemistry[[id number]] Glucose [Mass/volume] in Serum or Plasma [2345-7] 12/30/2024 05:49 PM 381 mg/dL N Blood chemistry[[id number]] Glucose [Mass/volume] in Serum or Plasma [5-7] 12/30/2024 04:20 PM 454 mg/dL N Blood chemistry[[id number]] Glucose [Mass/volume] in Serum or Plasma [2345-7] 12/30/2024 01:21 PM 288 mg/dL N Blood chemistry[[id number]] Glucose [Mass/volume] in Serum or Plasma [2345-7] 12/30/2024 09:39 AM 245 mg/dL N Blood chemistry[[id number]] Glucose [Mass/volume] in Serum or Plasma [5-7] 12/29/2024 04:52 PM 281 mg/dL N Blood chemistry[[id number]] Glucose [Mass/volume] in Serum or Plasma [2345-7] 12/29/2024 11:41 AM 329 mg/dL N Blood chemistry[[id number]] Glucose [Mass/volume] in Serum or Plasma [5-7] 12/29/2024 11:20 AM 176 mg/dL N Blood chemistry[[id number]] Glucose [Mass/volume] in Serum or Plasma [2345-7] 12/29/2024 09:33 AM 306 mg/dL N Blood chemistry[[id number]] Glucose [Mass/volume] in Serum or Plasma [2345-7] 12/28/2024 04:20 PM 268 mg/dL N Blood chemistry[[id number]] Glucose [Mass/volume] in Serum or Plasma [2345-7] 12/28/2024 12:45 PM 330 mg/dL N Blood chemistry[[id number]] Glucose [Mass/volume] in Serum or Plasma [2345-7] 12/28/2024 12:18 PM 221 mg/dL N Blood chemistry[[id number]] Glucose [Mass/volume] in Serum or Plasma [5-7] 12/28/2024 10:38 AM 308 mg/dL N Blood chemistry[[id number]] Glucose [Mass/volume] in Serum or Plasma [2345-7] 12/27/2024 12:14 PM 381 mg/dL N Blood chemistry[[id number]] Glucose [Mass/volume] in Serum or Plasma [2345-7] 12/27/2024 11:58 AM 231 mg/dL N Blood chemistry[[id number]] Glucose [Mass/volume] in Serum or Plasma [5-7] 12/27/2024 09:45 AM 211 mg/dL N Blood chemistry[[id number]] Glucose [Mass/volume] in Serum or Plasma [5-7] 12/26/2024 04:30 PM 210 mg/dL N Blood chemistry[[id number]] Glucose [Mass/volume] in Serum or Plasma [2345-7] 12/26/2024 12:32 PM 340 mg/dL N Blood chemistry[[id number]] Glucose [Mass/volume] in Serum or Plasma [2345-7] 12/26/2024 11:04 AM 135 mg/dL N Blood chemistry[[id number]] Glucose [Mass/volume] in Serum or Plasma [2345-7] 12/26/2024 09:49 AM 263 mg/dL N Blood chemistry[[id number]] Glucose [Mass/volume] in Serum or Plasma [2345-7] 12/25/2024 02:45 PM 270 mg/dL N Blood chemistry[[id number]] Glucose [Mass/volume] in Serum or Plasma [2345-7] 12/25/2024 12:31 PM 386 mg/dL N Blood chemistry[[id number]] Glucose [Mass/volume] in Serum or Plasma [2345-7] 12/25/2024 10:44 AM 181 mg/dL N Blood chemistry[[id number]] Glucose [Mass/volume] in Serum or Plasma [2345-7] 12/25/2024 06:06 AM 290 mg/dL N Blood chemistry[[id number]] Glucose [Mass/volume] in Serum or Plasma [2345-7] 12/24/2024 04:18 PM 215 mg/dL N Blood chemistry[[id number]] Glucose [Mass/volume] in Serum or Plasma [2345-7] 12/24/2024 03:49 PM 305 mg/dL N Blood chemistry[[id number]] Glucose [Mass/volume] in Serum or Plasma [2345-7] 12/24/2024 11:52 AM 209 mg/dL N Blood chemistry[[id number]] Glucose [Mass/volume] in Serum or Plasma [2345-7] 12/24/2024 10:06 AM 211 mg/dL N Blood chemistry[[id number]] Glucose [Mass/volume] in Serum or Plasma [2345-7] 12/23/2024 04:16 PM 255 mg/dL N Blood chemistry[[id number]] Glucose [Mass/volume] in Serum or Plasma [2345-7] 12/23/2024 12:12 PM 260 mg/dL N Blood chemistry[[id number]] Glucose [Mass/volume] in Serum or Plasma [2345-7] 12/23/2024 12:03 PM 197 mg/dL N Blood chemistry[[id number]] Glucose [Mass/volume] in Serum or Plasma [2345-7] 12/23/2024 10:31 AM 193 mg/dL N Blood chemistry[[id number]] Glucose [Mass/volume] in Serum or Plasma [2345-7] 12/22/2024 04:45 PM 274 mg/dL N Blood chemistry[[id number]] Glucose [Mass/volume] in Serum or Plasma [2345-7] 12/22/2024 01:35 PM 229 mg/dL N Blood chemistry[[id number]] Glucose [Mass/volume] in Serum or Plasma [2345-7] 12/22/2024 12:03 PM 171 mg/dL N Blood chemistry[[id number]] Glucose [Mass/volume] in Serum or Plasma [2345-7] 12/22/2024 10:56 AM 193 mg/dL N Blood chemistry[[id number]] Glucose [Mass/volume] in Serum or Plasma [2345-7] 12/21/2024 04:06 PM 331 mg/dL N Blood chemistry[[id number]] Glucose [Mass/volume] in Serum or Plasma [2345-7] 12/21/2024 12:37 PM 316 mg/dL N Blood chemistry[[id number]] Glucose [Mass/volume] in Serum or Plasma [2345-7] 12/21/2024 10:52 AM 321 mg/dL N Blood chemistry[[id number]] Glucose [Mass/volume] in Serum or Plasma [2345-7] 12/21/2024 10:23 AM 242 mg/dL N Blood chemistry[[id number]] Glucose [Mass/volume] in Serum or Plasma [2345-7] 12/20/2024 04:10 PM 264 mg/dL N Blood chemistry[[id number]] Glucose [Mass/volume] in Serum or Plasma [2345-7] 12/20/2024 12:49 PM 346 mg/dL N Blood chemistry[[id number]] Glucose [Mass/volume] in Serum or Plasma [2345-7] 12/20/2024 10:51 AM 247 mg/dL N Blood chemistry[[id number]] Glucose [Mass/volume] in Serum or Plasma [2345-7] 12/20/2024 09:41 AM 202 mg/dL N Blood chemistry[[id number]] Glucose [Mass/volume] in Serum or Plasma [2345-7] 12/19/2024 04:54 PM 381 mg/dL N Blood chemistry[[id number]] Glucose [Mass/volume] in Serum or Plasma [2345-7] 12/19/2024 01:25 PM 346 mg/dL N Blood chemistry[[id number]] Glucose [Mass/volume] in Serum or Plasma [2345-7] 12/19/2024 12:36 PM 255 mg/dL N Blood chemistry[[id number]] Glucose [Mass/volume] in Serum or Plasma [2345-7] 12/19/2024 10:37 AM 238 mg/dL N Blood chemistry[[id number]] Glucose [Mass/volume] in Serum or Plasma [2345-7] 12/18/2024 03:25 PM 250 mg/dL N Blood chemistry[[id number]] Glucose [Mass/volume] in Serum or Plasma [2345-7] 12/18/2024 12:32 PM 238 mg/dL N Blood chemistry[[id number]] Glucose [Mass/volume] in Serum or Plasma [2345-7] 12/18/2024 09:12 AM 285 mg/dL N Blood chemistry[[id number]] Glucose [Mass/volume] in Serum or Plasma [2345-7] 12/17/2024 04:42 PM 247 mg/dL N Blood chemistry[[id number]] Glucose [Mass/volume] in Serum or Plasma [2345-7] 12/17/2024 02:44 PM 242 mg/dL N Blood chemistry[[id number]] Glucose [Mass/volume] in Serum or Plasma [2345-7] 12/17/2024 11:43 AM 264 mg/dL N Blood chemistry[[id number]] Glucose [Mass/volume] in Serum or Plasma [2345-7] 12/17/2024 10:16 AM 184 mg/dL N Blood chemistry[[id number]] Glucose [Mass/volume] in Serum or Plasma [2345-7] 12/16/2024 05:25 PM 282 mg/dL N Blood chemistry[[id number]] Glucose [Mass/volume] in Serum or Plasma [2345-7] 12/16/2024 04:41 PM 319 mg/dL N Blood chemistry[[id number]] Glucose [Mass/volume] in Serum or Plasma [2345-7] 12/16/2024 04:21 PM 246 mg/dL N Blood chemistry[[id number]] Glucose [Mass/volume] in Serum or Plasma [2345-7] 12/16/2024 11:43 AM 227 mg/dL N Blood chemistry[[id number]] Glucose [Mass/volume] in Serum or Plasma [2345-7] 12/15/2024 05:36 PM 299 mg/dL N Blood chemistry[[id number]] Glucose [Mass/volume] in Serum or Plasma [2345-7] 12/15/2024 11:11 AM 217 mg/dL N Blood chemistry[[id number]] Glucose [Mass/volume] in Serum or Plasma [2345-7] 12/15/2024 10:06 AM 269 mg/dL N Blood chemistry[[id number]] Glucose [Mass/volume] in Serum or Plasma [2345-7] 12/14/2024 04:10 PM 272 mg/dL N Blood chemistry[[id number]] Glucose [Mass/volume] in Serum or Plasma [2345-7] 12/14/2024 12:50 PM 288 mg/dL N Blood chemistry[[id number]] Glucose [Mass/volume] in Serum or Plasma [2345-7] 12/14/2024 11:55 AM 197 mg/dL N Blood chemistry[[id number]] Glucose [Mass/volume] in Serum or Plasma [2345-7] 12/14/2024 09:30 AM 122 mg/dL N Blood chemistry[[id number]] Glucose [Mass/volume] in Serum or Plasma [2345-7] 12/13/2024 12:56 PM 347 mg/dL N Blood chemistry[[id number]] Glucose [Mass/volume] in Serum or Plasma [2345-7] 12/13/2024 12:20 PM 230 mg/dL N Blood chemistry[[id number]] Glucose [Mass/volume] in Serum or Plasma [2345-7] 12/13/2024 09:41 AM 230 mg/dL N Blood chemistry[[id number]] Glucose [Mass/volume] in Serum or Plasma [2345-7] 12/13/2024 06:22 AM 252 mg/dL N Blood chemistry[[id number]] Glucose [Mass/volume] in Serum or Plasma [2345-7] 12/12/2024 04:57 PM 316 mg/dL N Blood chemistry[[id number]] Glucose [Mass/volume] in Serum or Plasma [2345-7] 12/12/2024 02:25 PM 220 mg/dL N Blood chemistry[[id number]] Glucose [Mass/volume] in Serum or Plasma [2345-7] 12/12/2024 12:35 PM 268 mg/dL N Blood chemistry[[id number]] Glucose [Mass/volume] in Serum or Plasma [2345-7] 12/12/2024 09:46 AM 241 mg/dL N Blood chemistry[[id number]] Glucose [Mass/volume] in Serum or Plasma [2345-7] 12/11/2024 05:13 PM 295 mg/dL N Blood chemistry[[id number]] Glucose [Mass/volume] in Serum or Plasma [2345-7] 12/11/2024 02:20 PM 272 mg/dL N Blood chemistry[[id number]] Glucose [Mass/volume] in Serum or Plasma [2345-7] 12/11/2024 02:00 PM 284 mg/dL N Blood chemistry[[id number]] Glucose [Mass/volume] in Serum or Plasma [2345-7] 12/11/2024 10:22 AM 211 mg/dL N Blood chemistry[[id number]] Glucose [Mass/volume] in Serum or Plasma [2345-7] 12/10/2024 04:51 PM 232 mg/dL N Blood chemistry[[id number]] Glucose [Mass/volume] in Serum or Plasma [2345-7] 12/10/2024 04:10 PM 207 mg/dL N Blood chemistry[[id number]] Glucose [Mass/volume] in Serum or Plasma [2345-7] 12/10/2024 12:02 PM 275 mg/dL N Blood chemistry[[id number]] Glucose [Mass/volume] in Serum or Plasma [2345-7] 12/10/2024 09:31 AM 219 mg/dL N Blood chemistry[[id number]] Glucose [Mass/volume] in Serum or Plasma [2345-7] 12/09/2024 02:01 PM 246 mg/dL N Blood chemistry[[id number]] Glucose [Mass/volume] in Serum or Plasma [2345-7] 12/09/2024 12:13 PM 234 mg/dL N Blood chemistry[[id number]] Glucose [Mass/volume] in Serum or Plasma [2345-7] 12/09/2024 11:21 AM 224 mg/dL N Blood chemistry[[id number]] Glucose [Mass/volume] in Serum or Plasma [2345-7] 12/09/2024 11:19 AM 242 mg/dL N Blood chemistry[[id number]] Glucose [Mass/volume] in Serum or Plasma [2345-7] 12/09/2024 10:23 AM 170 mg/dL N Blood chemistry[[id number]] Glucose [Mass/volume] in Serum or Plasma [2345-7] 12/09/2024 07:09 AM 216 mg/dL N Blood chemistry[[id number]] Glucose [Mass/volume] in Serum or Plasma [2345-7] 12/08/2024 04:31 PM 218 mg/dL N Blood chemistry[[id number]] Glucose [Mass/volume] in Serum or Plasma [2345-7] 12/08/2024 12:13 PM 254 mg/dL N Blood chemistry[[id number]] Glucose [Mass/volume] in Serum or Plasma [2345-7] 12/07/2024 04:17 PM 292 mg/dL N Blood chemistry[[id number]] Glucose [Mass/volume] in Serum or Plasma [2345-7] 12/07/2024 04:02 PM 333 mg/dL N Blood chemistry[[id number]] Glucose [Mass/volume] in Serum or Plasma [2345-7] 12/07/2024 12:18 PM 287 mg/dL N Blood chemistry[[id number]] Glucose [Mass/volume] in Serum or Plasma [2345-7] 12/07/2024 09:39 AM 181 mg/dL N Blood chemistry[[id number]] Glucose [Mass/volume] in Serum or Plasma [2345-7] 12/06/2024 05:36 PM 369 mg/dL N Blood chemistry[[id number]] Glucose [Mass/volume] in Serum or Plasma [2345-7] 12/06/2024 03:45 PM 272 mg/dL N Blood chemistry[[id number]] Glucose [Mass/volume] in Serum or Plasma [2345-7] 12/06/2024 11:10 AM 257 mg/dL N Blood chemistry[[id number]] Glucose [Mass/volume] in Serum or Plasma [2345-7] 12/06/2024 09:31 AM 274 mg/dL N Blood chemistry[[id number]] Glucose [Mass/volume] in Serum or Plasma [2345-7] 12/05/2024 04:24 PM 296 mg/dL N Blood chemistry[[id number]] Glucose [Mass/volume] in Serum or Plasma [2345-7] 12/05/2024 12:44 PM 402 mg/dL N Blood chemistry[[id number]] Glucose [Mass/volume] in Serum or Plasma [2345-7] 12/05/2024 12:07 PM 360 mg/dL N Blood chemistry[[id number]] Glucose [Mass/volume] in Serum or Plasma [2345-7] 12/05/2024 09:31 AM 347 mg/dL N Blood chemistry[[id number]] Glucose [Mass/volume] in Serum or Plasma [2345-7] 12/04/2024 05:53 PM 318 mg/dL N Blood chemistry[[id number]] Glucose [Mass/volume] in Serum or Plasma [2345-7] 12/04/2024 12:23 PM 344 mg/dL N Blood chemistry[[id number]] Glucose [Mass/volume] in Serum or Plasma [2345-7] 12/04/2024 11:53 AM 351 mg/dL N Blood chemistry[[id number]] Glucose [Mass/volume] in Serum or Plasma [2345-7] 12/04/2024 10:33 AM 296 mg/dL N Blood chemistry[[id number]] Glucose [Mass/volume] in Serum or Plasma [2345-7] 12/03/2024 05:10 PM 378 mg/dL N Blood chemistry[[id number]] Glucose [Mass/volume] in Serum or Plasma [2345-7] 12/03/2024 02:06 PM 313 mg/dL N Blood chemistry[[id number]] Glucose [Mass/volume] in Serum or Plasma [2345-7] 12/03/2024 11:33 AM 294 mg/dL N Blood chemistry[[id number]] Glucose [Mass/volume] in Serum or Plasma [2345-7] 12/03/2024 11:01 AM 284 mg/dL N Blood chemistry[[id number]] Glucose [Mass/volume] in Serum or Plasma [2345-7] 12/02/2024 04:52 PM 458 mg/dL N Blood chemistry[[id number]] Glucose [Mass/volume] in Serum or Plasma [2345-7] 12/02/2024 02:27 PM 334 mg/dL N Blood chemistry[[id number]] Glucose [Mass/volume] in Serum or Plasma [2345-7] 12/02/2024 11:52 AM 332 mg/dL N Blood chemistry[[id number]] Glucose [Mass/volume] in Serum or Plasma [2345-7] 12/02/2024 09:53 AM 271 mg/dL N Blood chemistry[[id number]] Glucose [Mass/volume] in Serum or Plasma [2345-7] 12/01/2024 04:27 PM 274 mg/dL N Blood chemistry[[id number]] Glucose [Mass/volume] in Serum or Plasma [2345-7] 12/01/2024 02:22 PM 313 mg/dL N Blood chemistry[[id number]] Glucose [Mass/volume] in Serum or Plasma [2345-7] 12/01/2024 01:34 PM 281 mg/dL N Blood chemistry[[id number]] Glucose [Mass/volume] in Serum or Plasma [2345-7] 12/01/2024 09:45 AM 256 mg/dL N Blood chemistry[[id number]] Glucose [Mass/volume] in Serum or Plasma [2345-7] 11/30/2024 04:11 PM 453 mg/dL N Blood chemistry[[id number]] Glucose [Mass/volume] in Serum or Plasma [2345-7] 11/30/2024 12:21 PM 297 mg/dL N Blood chemistry[[id number]] Glucose [Mass/volume] in Serum or Plasma [2345-7] 11/30/2024 12:20 PM 357 mg/dL N Blood chemistry[[id number]] Glucose [Mass/volume] in Serum or Plasma [2345-7] 11/30/2024 10:39 AM 271 mg/dL N Blood chemistry[[id number]] Glucose [Mass/volume] in Serum or Plasma [2345-7] 11/29/2024 05:53 PM 312 mg/dL N Blood chemistry[[id number]] Glucose [Mass/volume] in Serum or Plasma [2345-7] 11/29/2024 12:06 PM 420 mg/dL N Blood chemistry[[id number]] Glucose [Mass/volume] in Serum or Plasma [2345-7] 11/29/2024 11:39 AM 325 mg/dL N Blood chemistry[[id number]] Glucose [Mass/volume] in Serum or Plasma [2345-7] 11/29/2024 10:08 AM 209 mg/dL N Blood chemistry[[id number]] Glucose [Mass/volume] in Serum or Plasma [2345-7] 11/28/2024 11:52 AM 347 mg/dL N Blood chemistry[[id number]] Glucose [Mass/volume] in Serum or Plasma [2345-7] 11/28/2024 11:35 AM 378 mg/dL N Blood chemistry[[id number]] Glucose [Mass/volume] in Serum or Plasma [2345-7] 11/28/2024 10:40 AM 320 mg/dL N Blood chemistry[[id number]] Glucose [Mass/volume] in Serum or Plasma [2345-7] 11/28/2024 06:20 AM 355 mg/dL N Blood chemistry[[id number]] Glucose [Mass/volume] in Serum or Plasma [2345-7] 11/27/2024 12:52 PM 321 mg/dL N Blood chemistry[[id number]] Glucose [Mass/volume] in Serum or Plasma [2345-7] 11/27/2024 12:07 PM 417 mg/dL N Blood chemistry[[id number]] Glucose [Mass/volume] in Serum or Plasma [2345-7] 11/27/2024 10:33 AM 343 mg/dL N Blood chemistry[[id number]] Glucose [Mass/volume] in Serum or Plasma [2345-7] 11/27/2024 06:01 AM 431 mg/dL N Blood chemistry[[id number]] Glucose [Mass/volume] in Serum or Plasma [2345-7] 11/26/2024 04:18 PM 298 mg/dL N Blood chemistry[[id number]] Glucose [Mass/volume] in Serum or Plasma [2345-7] 11/26/2024 11:59 AM 262 mg/dL N Blood chemistry[[id number]] Glucose [Mass/volume] in Serum or Plasma [2345-7] 11/26/2024 11:31 AM 307 mg/dL N Blood chemistry[[id number]] Glucose [Mass/volume] in Serum or Plasma [2345-7] 11/26/2024 09:38 AM 214 mg/dL N Blood chemistry[[id number]] Glucose [Mass/volume] in Serum or Plasma [2345-7] 11/25/2024 04:33 PM 237 mg/dL N Blood chemistry[[id number]] Glucose [Mass/volume] in Serum or Plasma [2345-7] 11/25/2024 12:02 PM 284 mg/dL N Blood chemistry[[id number]] Glucose [Mass/volume] in Serum or Plasma [2345-7] 11/25/2024 12:01 PM 310 mg/dL N Blood chemistry[[id number]] Glucose [Mass/volume] in Serum or Plasma [2345-7] 11/25/2024 10:11 AM 235 mg/dL N Blood chemistry[[id number]] Glucose [Mass/volume] in Serum or Plasma [2345-7] 11/24/2024 04:46 PM 387 mg/dL N Blood chemistry[[id number]] Glucose [Mass/volume] in Serum or Plasma [2345-7] 11/24/2024 12:56 PM 318 mg/dL N Blood chemistry[[id number]] Glucose [Mass/volume] in Serum or Plasma [2345-7] 11/24/2024 12:15 PM 413 mg/dL N Blood chemistry[[id number]] Glucose [Mass/volume] in Serum or Plasma [2345-7] 11/24/2024 09:49 AM 283 mg/dL N Blood chemistry[[id number]] Glucose [Mass/volume] in Serum or Plasma [2345-7] 11/23/2024 04:24 PM 343 mg/dL N Blood chemistry[[id number]] Glucose [Mass/volume] in Serum or Plasma [2345-7] 11/23/2024 01:38 PM 448 mg/dL N Blood chemistry[[id number]] Glucose [Mass/volume] in Serum or Plasma [2345-7] 11/23/2024 12:06 PM 393 mg/dL N Blood chemistry[[id number]] Glucose [Mass/volume] in Serum or Plasma [2345-7] 11/23/2024 09:39 AM 280 mg/dL N Blood chemistry[[id number]] Glucose [Mass/volume] in Serum or Plasma [2345-7] 11/23/2024 07:49 AM 473 mg/dL N Blood chemistry[[id number]] Glucose [Mass/volume] in Serum or Plasma [2345-7] 11/22/2024 04:14 PM 444 mg/dL N Blood chemistry[[id number]] Glucose [Mass/volume] in Serum or Plasma [2345-7] 11/22/2024 09:15 AM 346 mg/dL N Blood chemistry[[id number]] Glucose [Mass/volume] in Serum or Plasma [2345-7] 11/21/2024 05:34 PM 404 mg/dL N Blood chemistry[[id number]] Glucose [Mass/volume] in Serum or Plasma [2345-7] 11/21/2024 02:12 PM 387 mg/dL N Blood chemistry[[id number]] Glucose [Mass/volume] in Serum or Plasma [2345-7] 11/21/2024 12:40 PM 362 mg/dL N Blood chemistry[[id number]] Glucose [Mass/volume] in Serum or Plasma [2345-7] 11/20/2024 04:18 PM 409 mg/dL N Blood chemistry[[id number]] Glucose [Mass/volume] in Serum or Plasma [2345-7] 11/20/2024 03:42 PM 423 mg/dL N Blood chemistry[[id number]] Glucose [Mass/volume] in Serum or Plasma [2345-7] 11/20/2024 01:02 PM 316 mg/dL N Blood chemistry[[id number]] Glucose [Mass/volume] in Serum or Plasma [2345-7] 11/20/2024 10:02 AM 337 mg/dL N Blood chemistry[[id number]] Glucose [Mass/volume] in Serum or Plasma [2345-7] 11/19/2024 04:31 PM 353 mg/dL N Blood chemistry[[id number]] Glucose [Mass/volume] in Serum or Plasma [2345-7] 11/19/2024 01:50 PM 344 mg/dL N Blood chemistry[[id number]] Glucose [Mass/volume] in Serum or Plasma [2345-7] 11/19/2024 11:55 AM 291 mg/dL N Blood chemistry[[id number]] Glucose [Mass/volume] in Serum or Plasma [2345-7] 11/19/2024 09:50 AM 275 mg/dL N Blood chemistry[[id number]] Glucose [Mass/volume] in Serum or Plasma [2345-7] 11/18/2024 04:25 PM 243 mg/dL N Blood chemistry[[id number]] Glucose [Mass/volume] in Serum or Plasma [2345-7] 11/18/2024 02:45 PM 334 mg/dL N Blood chemistry[[id number]] Glucose [Mass/volume] in Serum or Plasma [2345-7] 11/18/2024 11:50 AM 275 mg/dL N Blood chemistry[[id number]] Glucose [Mass/volume] in Serum or Plasma [2345-7] 11/18/2024 09:47 AM 231 mg/dL N Blood chemistry[[id number]] Glucose [Mass/volume] in Serum or Plasma [2345-7] 11/17/2024 04:03 PM 342 mg/dL N Blood chemistry[[id number]] Glucose [Mass/volume] in Serum or Plasma [2345-7] 11/17/2024 02:16 PM 226 mg/dL N Blood chemistry[[id number]] Glucose [Mass/volume] in Serum or Plasma [2345-7] 11/17/2024 11:07 AM 245 mg/dL N Blood chemistry[[id number]] Glucose [Mass/volume] in Serum or Plasma [2345-7] 11/17/2024 10:27 AM 234 mg/dL N Blood chemistry[[id number]] Glucose [Mass/volume] in Serum or Plasma [2345-7] 11/16/2024 05:49 PM 253 mg/dL N Blood chemistry[[id number]] Glucose [Mass/volume] in Serum or Plasma [2345-7] 11/16/2024 02:38 PM 312 mg/dL N Blood chemistry[[id number]] Glucose [Mass/volume] in Serum or Plasma [2345-7] 11/16/2024 12:25 PM 186 mg/dL N Blood chemistry[[id number]] Glucose [Mass/volume] in Serum or Plasma [2345-7] 11/16/2024 09:45 AM 200 mg/dL N Blood chemistry[[id number]] Glucose [Mass/volume] in Serum or Plasma [2345-7] 11/15/2024 04:15 PM 300 mg/dL N Blood chemistry[[id number]] Glucose [Mass/volume] in Serum or Plasma [2345-7] 11/15/2024 04:12 PM 284 mg/dL N Blood chemistry[[id number]] Glucose [Mass/volume] in Serum or Plasma [2345-7] 11/15/2024 01:50 PM 289 mg/dL N Blood chemistry[[id number]] Glucose [Mass/volume] in Serum or Plasma [2345-7] 11/15/2024 10:18 AM 172 mg/dL N Blood chemistry[[id number]] Glucose [Mass/volume] in Serum or Plasma [2345-7] 11/14/2024 04:54 PM 323 mg/dL N Blood chemistry[[id number]] Glucose [Mass/volume] in Serum or Plasma [2345-7] 11/14/2024 12:16 PM 349 mg/dL N Blood chemistry[[id number]] Glucose [Mass/volume] in Serum or Plasma [2345-7] 11/14/2024 12:08 PM 303 mg/dL N Blood chemistry[[id number]] Glucose [Mass/volume] in Serum or Plasma [2345-7] 11/14/2024 09:32 AM 282 mg/dL N Blood chemistry[[id number]] Glucose [Mass/volume] in Serum or Plasma [2345-7] 11/14/2024 06:35 AM 220 mg/dL N Blood chemistry[[id number]] Glucose [Mass/volume] in Serum or Plasma [2345-7] 11/13/2024 03:49 PM 314 mg/dL N Blood chemistry[[id number]] Glucose [Mass/volume] in Serum or Plasma [2345-7] 11/13/2024 01:25 PM 219 mg/dL N Blood chemistry[[id number]] Glucose [Mass/volume] in Serum or Plasma [2345-7] 11/13/2024 09:39 AM 240 mg/dL N Blood chemistry[[id number]] Glucose [Mass/volume] in Serum or Plasma [2345-7] 11/12/2024 03:56 PM 225 mg/dL N Blood chemistry[[id number]] Glucose [Mass/volume] in Serum or Plasma [2345-7] 11/12/2024 11:57 AM 249 mg/dL N Blood chemistry[[id number]] Glucose [Mass/volume] in Serum or Plasma [2345-7] 11/12/2024 09:32 AM 200 mg/dL N Blood chemistry[[id number]] Glucose [Mass/volume] in Serum or Plasma [2345-7] 11/12/2024 06:07 AM 284 mg/dL N Blood chemistry[[id number]] Glucose [Mass/volume] in Serum or Plasma [2345-7] 11/11/2024 05:46 PM 378 mg/dL N Blood chemistry[[id number]] Glucose [Mass/volume] in Serum or Plasma [2345-7] 11/11/2024 04:28 PM 243 mg/dL N Blood chemistry[[id number]] Glucose [Mass/volume] in Serum or Plasma [2345-7] 11/11/2024 02:21 PM 224 mg/dL N Blood chemistry[[id number]] Glucose [Mass/volume] in Serum or Plasma [2345-7] 11/11/2024 11:57 AM 240 mg/dL N Blood chemistry[[id number]] Glucose [Mass/volume] in Serum or Plasma [2345-7] 11/11/2024 09:41 AM 223 mg/dL N Blood chemistry[[id number]] Glucose [Mass/volume] in Serum or Plasma [2345-7] 11/10/2024 04:49 PM 348 mg/dL N Blood chemistry[[id number]] Glucose [Mass/volume] in Serum or Plasma [2345-7] 11/10/2024 11:53 AM 276 mg/dL N Blood chemistry[[id number]] Glucose [Mass/volume] in Serum or Plasma [2345-7] 11/10/2024 09:58 AM 188 mg/dL N Blood chemistry[[id number]] Glucose [Mass/volume] in Serum or Plasma [2345-7] 11/09/2024 04:20 PM 280 mg/dL N Blood chemistry[[id number]] Glucose [Mass/volume] in Serum or Plasma [2345-7] 11/09/2024 02:08 PM 315 mg/dL N Blood chemistry[[id number]] Glucose [Mass/volume] in Serum or Plasma [2345-7] 11/09/2024 11:53 AM 322 mg/dL N Blood chemistry[[id number]] Glucose [Mass/volume] in Serum or Plasma [2345-7] 11/09/2024 09:38 AM 370 mg/dL N Blood chemistry[[id number]] Glucose [Mass/volume] in Serum or Plasma [2345-7] 11/08/2024 05:24 PM 438 mg/dL N Blood chemistry[[id number]] Glucose [Mass/volume] in Serum or Plasma [2345-7] 11/08/2024 12:09 PM 253 mg/dL N Blood chemistry[[id number]] Glucose [Mass/volume] in Serum or Plasma [2345-7] 11/08/2024 09:26 AM 333 mg/dL N Blood chemistry[[id number]] Glucose [Mass/volume] in Serum or Plasma [2345-7] 11/07/2024 04:38 PM 344 mg/dL N Blood chemistry[[id number]] Glucose [Mass/volume] in Serum or Plasma [2345-7] 11/07/2024 01:29 PM 273 mg/dL N Blood chemistry[[id number]] Glucose [Mass/volume] in Serum or Plasma [2345-7] 11/07/2024 01:07 PM 351 mg/dL N Blood chemistry[[id number]] Glucose [Mass/volume] in Serum or Plasma [2345-7] 11/07/2024 10:23 AM 282 mg/dL N Blood chemistry[[id number]] Glucose [Mass/volume] in Serum or Plasma [2345-7] 11/06/2024 05:43 PM 419 mg/dL N Blood chemistry[[id number]] Glucose [Mass/volume] in Serum or Plasma [2345-7] 11/06/2024 01:45 PM 349 mg/dL N Blood chemistry[[id number]] Glucose [Mass/volume] in Serum or Plasma [2345-7] 11/06/2024 01:09 PM 365 mg/dL N Blood chemistry[[id number]] Glucose [Mass/volume] in Serum or Plasma [2345-7] 11/06/2024 10:34 AM 404 mg/dL N Blood chemistry[[id number]] Glucose [Mass/volume] in Serum or Plasma [2345-7] 11/05/2024 03:59 PM 347 mg/dL N Blood chemistry[[id number]] Glucose [Mass/volume] in Serum or Plasma [2345-7] 11/05/2024 02:14 PM 200 mg/dL N Blood chemistry[[id number]] Glucose [Mass/volume] in Serum or Plasma [2345-7] 11/05/2024 10:43 AM 200 mg/dL N Blood chemistry[[id number]] Glucose [Mass/volume] in Serum or Plasma [2345-7] 11/05/2024 09:09 AM 343 mg/dL N Blood chemistry[[id number]] Glucose [Mass/volume] in Serum or Plasma [2345-7] 11/04/2024 05:04 PM 287 mg/dL N Blood chemistry[[id number]] Glucose [Mass/volume] in Serum or Plasma [2345-7] 11/04/2024 01:45 PM 469 mg/dL N Blood chemistry[[id number]] Glucose [Mass/volume] in Serum or Plasma [2345-7] 11/04/2024 10:46 AM 144 mg/dL N Blood chemistry[[id number]] Glucose [Mass/volume] in Serum or Plasma [2345-7] 11/04/2024 10:29 AM 324 mg/dL N Blood chemistry[[id number]] Glucose [Mass/volume] in Serum or Plasma [2345-7] 11/03/2024 04:25 PM 329 mg/dL N Blood chemistry[[id number]] Glucose [Mass/volume] in Serum or Plasma [2345-7] 11/03/2024 01:55 PM 311 mg/dL N Blood chemistry[[id number]] Glucose [Mass/volume] in Serum or Plasma [2345-7] 11/03/2024 11:11 AM 234 mg/dL N Blood chemistry[[id number]] Glucose [Mass/volume] in Serum or Plasma [2345-7] 11/03/2024 10:29 AM 199 mg/dL N Blood chemistry[[id number]] Glucose [Mass/volume] in Serum or Plasma [2345-7] 11/02/2024 04:17 PM 407 mg/dL N Blood chemistry[[id number]] Glucose [Mass/volume] in Serum or Plasma [2345-7] 11/02/2024 12:35 PM 356 mg/dL N Blood chemistry[[id number]] Glucose [Mass/volume] in Serum or Plasma [2345-7] 11/02/2024 12:14 PM 234 mg/dL N Blood chemistry[[id number]] Glucose [Mass/volume] in Serum or Plasma [2345-7] 11/02/2024 10:38 AM 341 mg/dL N Blood chemistry[[id number]] Glucose [Mass/volume] in Serum or Plasma [2345-7] 11/01/2024 03:54 PM 416 mg/dL N Blood chemistry[[id number]] Glucose [Mass/volume] in Serum or Plasma [2345-7] 11/01/2024 12:01 PM 343 mg/dL N Blood chemistry[[id number]] Glucose [Mass/volume] in Serum or Plasma [2345-7] 11/01/2024 11:56 AM 366 mg/dL N Blood chemistry[[id number]] Glucose [Mass/volume] in Serum or Plasma [2345-7] 11/01/2024 09:17 AM 382 mg/dL N Blood chemistry[[id number]] Glucose [Mass/volume] in Serum or Plasma [2345-7] 10/31/2024 04:29 PM 365 mg/dL N Blood chemistry[[id number]] Glucose [Mass/volume] in Serum or Plasma [2345-7] 10/31/2024 12:49 PM 431 mg/dL N Blood chemistry[[id number]] Glucose [Mass/volume] in Serum or Plasma [2345-7] 10/31/2024 12:31 PM 292 mg/dL N Blood chemistry[[id number]] Glucose [Mass/volume] in Serum or Plasma [2345-7] 10/31/2024 09:30 AM 430 mg/dL N Blood chemistry[[id number]] Glucose [Mass/volume] in Serum or Plasma [2345-7] 10/30/2024 04:42 PM 395 mg/dL N Blood chemistry[[id number]] Glucose [Mass/volume] in Serum or Plasma [2345-7] 10/30/2024 12:57 PM 400 mg/dL N Blood chemistry[[id number]] Glucose [Mass/volume] in Serum or Plasma [2345-7] 10/30/2024 12:53 PM 379 mg/dL N Blood chemistry[[id number]] Glucose [Mass/volume] in Serum or Plasma [2345-7] 10/30/2024 09:57 AM 373 mg/dL N Blood chemistry[[id number]] Glucose [Mass/volume] in Serum or Plasma [2345-7] 10/29/2024 04:17 PM 386 mg/dL N Blood chemistry[[id number]] Glucose [Mass/volume] in Serum or Plasma [2345-7] 10/29/2024 01:49 PM 304 mg/dL N Blood chemistry[[id number]] Glucose [Mass/volume] in Serum or Plasma [2345-7] 10/29/2024 12:00 PM 333 mg/dL N Blood chemistry[[id number]] Glucose [Mass/volume] in Serum or Plasma [2345-7] 10/29/2024 09:42 AM 353 mg/dL N Blood chemistry[[id number]] Glucose [Mass/volume] in Serum or Plasma [2345-7] 10/28/2024 04:30 PM 404 mg/dL N Blood chemistry[[id number]] Glucose [Mass/volume] in Serum or Plasma [2345-7] 10/28/2024 01:02 PM 397 mg/dL N Blood chemistry[[id number]] Glucose [Mass/volume] in Serum or Plasma [2345-7] 10/28/2024 12:00 PM 330 mg/dL N Blood chemistry[[id number]] Glucose [Mass/volume] in Serum or Plasma [2345-7] 10/28/2024 09:35 AM 385 mg/dL N Blood chemistry[[id number]] Glucose [Mass/volume] in Serum or Plasma [2345-7] 10/27/2024 04:30 PM 452 mg/dL N Blood chemistry[[id number]] Glucose [Mass/volume] in Serum or Plasma [2345-7] 10/27/2024 03:06 PM 377 mg/dL N Blood chemistry[[id number]] Glucose [Mass/volume] in Serum or Plasma [2345-7] 10/27/2024 12:19 PM 313 mg/dL N Blood chemistry[[id number]] Glucose [Mass/volume] in Serum or Plasma [2345-7] 10/27/2024 09:35 AM 480 mg/dL N Blood chemistry[[id number]] Glucose [Mass/volume] in Serum or Plasma [2345-7] 10/26/2024 04:29 PM 368 mg/dL N Blood chemistry[[id number]] Glucose [Mass/volume] in Serum or Plasma [2345-7] 10/26/2024 02:00 PM 387 mg/dL N Blood chemistry[[id number]] Glucose [Mass/volume] in Serum or Plasma [2345-7] 10/26/2024 12:49 PM 272 mg/dL N Blood chemistry[[id number]] Glucose [Mass/volume] in Serum or Plasma [2345-7] 10/26/2024 09:29 AM 317 mg/dL N Blood chemistry[[id number]] Glucose [Mass/volume] in Serum or Plasma [2345-7] 10/25/2024 04:35 PM 476 mg/dL N Blood chemistry[[id number]] Glucose [Mass/volume] in Serum or Plasma [2345-7] 10/25/2024 01:08 PM 359 mg/dL N Blood chemistry[[id number]] Glucose [Mass/volume] in Serum or Plasma [2345-7] 10/25/2024 12:09 PM 372 mg/dL N Blood chemistry[[id number]] Glucose [Mass/volume] in Serum or Plasma [2345-7] 10/25/2024 09:51 AM 340 mg/dL N Blood chemistry[[id number]] Glucose [Mass/volume] in Serum or Plasma [2345-7] 10/25/2024 06:34 AM 400 mg/dL N Blood chemistry[[id number]] Glucose [Mass/volume] in Serum or Plasma [2345-7] 10/24/2024 05:36 PM 366 mg/dL N Blood chemistry[[id number]] Glucose [Mass/volume] in Serum or Plasma [2345-7] 10/24/2024 01:44 PM 268 mg/dL N Blood chemistry[[id number]] Glucose [Mass/volume] in Serum or Plasma [2345-7] 10/24/2024 10:06 AM 374 mg/dL N Blood chemistry[[id number]] Glucose [Mass/volume] in Serum or Plasma [2345-7] 10/23/2024 05:21 PM 380 mg/dL N Blood chemistry[[id number]] Glucose [Mass/volume] in Serum or Plasma [2345-7] 10/23/2024 11:39 AM 299 mg/dL N Blood chemistry[[id number]] Glucose [Mass/volume] in Serum or Plasma [2345-7] 10/23/2024 11:29 AM 396 mg/dL N Blood chemistry[[id number]] Glucose [Mass/volume] in Serum or Plasma [2345-7] 10/23/2024 10:56 AM 390 mg/dL N Blood chemistry[[id number]] Glucose [Mass/volume] in Serum or Plasma [2345-7] 10/22/2024 03:53 PM 495 mg/dL N Blood chemistry[[id number]] Glucose [Mass/volume] in Serum or Plasma [2345-7] 10/22/2024 03:31 PM 244 mg/dL N Blood chemistry[[id number]] Glucose [Mass/volume] in Serum or Plasma [2345-7] 10/22/2024 01:55 PM 252 mg/dL N Blood chemistry[[id number]] Glucose [Mass/volume] in Serum or Plasma [2345-7] 10/22/2024 09:26 AM 373 mg/dL N Blood chemistry[[id number]] Glucose [Mass/volume] in Serum or Plasma [2345-7] 10/21/2024 04:02 PM 328 mg/dL N Blood chemistry[[id number]] Glucose [Mass/volume] in Serum or Plasma [2345-7] 10/21/2024 03:19 PM 278 mg/dL N Blood chemistry[[id number]] Glucose [Mass/volume] in Serum or Plasma [2345-7] 10/21/2024 12:57 PM 275 mg/dL N Blood chemistry[[id number]] Glucose [Mass/volume] in Serum or Plasma [2345-7] 10/21/2024 09:08 AM 402 mg/dL N Blood chemistry[[id number]] Glucose [Mass/volume] in Serum or Plasma [2345-7] 10/20/2024 05:07 PM 343 mg/dL N Blood chemistry[[id number]] Glucose [Mass/volume] in Serum or Plasma [2345-7] 10/20/2024 11:49 AM 285 mg/dL N Blood chemistry[[id number]] Glucose [Mass/volume] in Serum or Plasma [2345-7] 10/20/2024 09:55 AM 407 mg/dL N Blood chemistry[[id number]] Glucose [Mass/volume] in Serum or Plasma [2345-7] 10/19/2024 04:29 PM 373 mg/dL N Blood chemistry[[id number]] Glucose [Mass/volume] in Serum or Plasma [2345-7] 10/19/2024 01:43 PM 376 mg/dL N Blood chemistry[[id number]] Glucose [Mass/volume] in Serum or Plasma [2345-7] 10/19/2024 11:46 AM 119 mg/dL N Blood chemistry[[id number]] Glucose [Mass/volume] in Serum or Plasma [2345-7] 10/19/2024 08:46 AM 383 mg/dL N Blood chemistry[[id number]] Glucose [Mass/volume] in Serum or Plasma [2345-7] 10/19/2024 06:03 AM 304 mg/dL N Blood chemistry[[id number]] Glucose [Mass/volume] in Serum or Plasma [2345-7] 10/18/2024 03:29 PM 440 mg/dL N Blood chemistry[[id number]] Glucose [Mass/volume] in Serum or Plasma [2345-7] 10/18/2024 10:49 AM 276 mg/dL N Blood chemistry[[id number]] Glucose [Mass/volume] in Serum or Plasma [2345-7] 10/18/2024 08:26 AM 331 mg/dL N Blood chemistry[[id number]] Glucose [Mass/volume] in Serum or Plasma [2345-7] 10/17/2024 03:44 PM 425 mg/dL N Blood chemistry[[id number]] Glucose [Mass/volume] in Serum or Plasma [2345-7] 10/17/2024 12:48 PM 415 mg/dL N Blood chemistry[[id number]] Glucose [Mass/volume] in Serum or Plasma [2345-7] 10/17/2024 11:31 AM 281 mg/dL N Blood chemistry[[id number]] Glucose [Mass/volume] in Serum or Plasma [2345-7] 10/17/2024 09:38 AM 318 mg/dL N Blood chemistry[[id number]] Glucose [Mass/volume] in Serum or Plasma [2345-7] 10/17/2024 08:55 AM 430 mg/dL N Blood chemistry[[id number]] Glucose [Mass/volume] in Serum or Plasma [2345-7] 10/16/2024 05:18 PM 358 mg/dL N Blood chemistry[[id number]] Glucose [Mass/volume] in Serum or Plasma [2345-7] 10/16/2024 12:06 PM 336 mg/dL N Blood chemistry[[id number]] Glucose [Mass/volume] in Serum or Plasma [2345-7] 10/16/2024 10:19 AM 357 mg/dL N Blood chemistry[[id number]] Glucose [Mass/volume] in Serum or Plasma [2345-7] 10/15/2024 04:04 PM 361 mg/dL N Blood chemistry[[id number]] Glucose [Mass/volume] in Serum or Plasma [2345-7] 10/15/2024 01:29 PM 400 mg/dL N Blood chemistry[[id number]] Glucose [Mass/volume] in Serum or Plasma [2345-7] 10/15/2024 12:13 PM 239 mg/dL N Blood chemistry[[id number]] Glucose [Mass/volume] in Serum or Plasma [2345-7] 10/15/2024 10:27 AM 328 mg/dL N Blood chemistry[[id number]] Glucose [Mass/volume] in Serum or Plasma [2345-7] 10/14/2024 03:52 PM 311 mg/dL N Blood chemistry[[id number]] Glucose [Mass/volume] in Serum or Plasma [2345-7] 10/14/2024 02:41 PM 400 mg/dL N Blood chemistry[[id number]] Glucose [Mass/volume] in Serum or Plasma [2345-7] 10/14/2024 11:04 AM 270 mg/dL N Blood chemistry[[id number]] Glucose [Mass/volume] in Serum or Plasma [2345-7] 10/14/2024 09:16 AM 381 mg/dL N Blood chemistry[[id number]] Glucose [Mass/volume] in Serum or Plasma [2345-7] 10/14/2024 06:07 AM 386 mg/dL N Blood chemistry[[id number]] Glucose [Mass/volume] in Serum or Plasma [2345-7] 10/13/2024 11:48 AM 266 mg/dL N Blood chemistry[[id number]] Glucose [Mass/volume] in Serum or Plasma [2345-7] 10/13/2024 10:39 AM 318 mg/dL N Blood chemistry[[id number]] Glucose [Mass/volume] in Serum or Plasma [2345-7] 10/13/2024 06:02 AM 395 mg/dL N Blood chemistry[[id number]] Glucose [Mass/volume] in Serum or Plasma [2345-7] 10/12/2024 05:06 PM 278 mg/dL N Blood chemistry[[id number]] Glucose [Mass/volume] in Serum or Plasma [2345-7] 10/12/2024 12:30 PM 297 mg/dL N Blood chemistry[[id number]] Glucose [Mass/volume] in Serum or Plasma [2345-7] 10/12/2024 11:36 AM 249 mg/dL N Blood chemistry[[id number]] Glucose [Mass/volume] in Serum or Plasma [2345-7] 10/12/2024 09:50 AM 223 mg/dL N Blood chemistry[[id number]] Glucose [Mass/volume] in Serum or Plasma [2345-7] 10/11/2024 03:49 PM 400 mg/dL N Blood chemistry[[id number]] Glucose [Mass/volume] in Serum or Plasma [2345-7] 10/11/2024 01:42 PM 255 mg/dL N Blood chemistry[[id number]] Glucose [Mass/volume] in Serum or Plasma [2345-7] 10/11/2024 10:25 AM 400 mg/dL N Blood chemistry[[id number]] Glucose [Mass/volume] in Serum or Plasma [2345-7] 10/11/2024 09:59 AM 315 mg/dL N Blood chemistry[[id number]] Glucose [Mass/volume] in Serum or Plasma [2345-7] 10/11/2024 06:01 AM 267 mg/dL N Blood chemistry[[id number]] Glucose [Mass/volume] in Serum or Plasma [2345-7] 10/10/2024 04:02 PM 304 mg/dL N Blood chemistry[[id number]] Glucose [Mass/volume] in Serum or Plasma [2345-7] 10/10/2024 12:57 PM 167 mg/dL N Blood chemistry[[id number]] Glucose [Mass/volume] in Serum or Plasma [2345-7] 10/10/2024 09:43 AM 268 mg/dL N Blood chemistry[[id number]] Glucose [Mass/volume] in Serum or Plasma [2345-7] 10/09/2024 04:25 PM 296 mg/dL N Blood chemistry[[id number]] Glucose [Mass/volume] in Serum or Plasma [2345-7] 10/09/2024 12:41 PM 316 mg/dL N Blood chemistry[[id number]] Glucose [Mass/volume] in Serum or Plasma [2345-7] 10/09/2024 12:22 PM 218 mg/dL N Blood chemistry[[id number]] Glucose [Mass/volume] in Serum or Plasma [2345-7] 10/09/2024 09:38 AM 278 mg/dL N Blood chemistry[[id number]] Glucose [Mass/volume] in Serum or Plasma [2345-7] 10/08/2024 04:27 PM 317 mg/dL N Blood chemistry[[id number]] Glucose [Mass/volume] in Serum or Plasma [2345-7] 10/08/2024 02:58 PM 287 mg/dL N Blood chemistry[[id number]] Glucose [Mass/volume] in Serum or Plasma [2345-7] 10/08/2024 12:36 PM 171 mg/dL N Blood chemistry[[id number]] Glucose [Mass/volume] in Serum or Plasma [2345-7] 10/08/2024 09:57 AM 229 mg/dL N Blood chemistry[[id number]] Glucose [Mass/volume] in Serum or Plasma [2345-7] 10/07/2024 02:00 PM 375 mg/dL N Blood chemistry[[id number]] Glucose [Mass/volume] in Serum or Plasma [2345-7] 10/07/2024 09:23 AM 268 mg/dL N Blood chemistry[[id number]] Glucose [Mass/volume] in Serum or Plasma [2345-7] 09/04/2024 04:52 PM 350 mg/dL N Blood chemistry[[id number]] Glucose [Mass/volume] in Serum or Plasma [2345-7] 09/04/2024 09:48 AM 315 mg/dL N Blood chemistry[[id number]] Glucose [Mass/volume] in Serum or Plasma [2345-7] 09/04/2024 01:44 PM 210 mg/dL N Blood chemistry[[id number]] Glucose [Mass/volume] in Serum or Plasma [2345-7] 09/03/2024 12:26 PM 203 mg/dL N Blood chemistry[[id number]] Glucose [Mass/volume] in Serum or Plasma [2345-7] 09/03/2024 04:09 PM 214 mg/dL N Blood chemistry[[id number]] Glucose [Mass/volume] in Serum or Plasma [2345-7] 09/03/2024 09:20 AM 248 mg/dL N Blood chemistry[[id number]] Glucose [Mass/volume] in Serum or Plasma [2345-7] 09/03/2024 12:12 PM 214 mg/dL N Blood chemistry[[id number]] Glucose [Mass/volume] in Serum or Plasma [2345-7] 09/02/2024 01:54 PM 281 mg/dL N Blood chemistry[[id number]] Glucose [Mass/volume] in Serum or Plasma [2345-7] 09/02/2024 09:27 AM 197 mg/dL N Blood chemistry[[id number]] Glucose [Mass/volume] in Serum or Plasma [2345-7] 09/02/2024 06:51 AM 233 mg/dL N Blood chemistry[[id number]] Glucose [Mass/volume] in Serum or Plasma [2345-7] 09/02/2024 12:11 PM 244 mg/dL N Blood chemistry[[id number]] Glucose [Mass/volume] in Serum or Plasma [2345-7] 09/01/2024 01:59 PM 235 mg/dL N Blood chemistry[[id number]] Glucose [Mass/volume] in Serum or Plasma [2345-7] 09/01/2024 04:37 PM 282 mg/dL N Blood chemistry[[id number]] Glucose [Mass/volume] in Serum or Plasma [2345-7] 09/01/2024 09:36 AM 415 mg/dL N Blood chemistry[[id number]] Glucose [Mass/volume] in Serum or Plasma [2345-7] 09/01/2024 11:55 AM 248 mg/dL N Blood chemistry[[id number]] Glucose [Mass/volume] in Serum or Plasma [2345-7] 08/31/2024 01:10 PM 331 mg/dL N Blood chemistry[[id number]] Glucose [Mass/volume] in Serum or Plasma [2345-7] 08/31/2024 04:23 PM 243 mg/dL N Blood chemistry[[id number]] Glucose [Mass/volume] in Serum or Plasma [2345-7] 08/31/2024 09:45 AM 178 mg/dL N Blood chemistry[[id number]] Glucose [Mass/volume] in Serum or Plasma [2345-7] 08/31/2024 12:00 PM 237 mg/dL N Blood chemistry[[id number]] Glucose [Mass/volume] in Serum or Plasma [2345-7] 08/30/2024 12:19 PM 371 mg/dL N Blood chemistry[[id number]] Glucose [Mass/volume] in Serum or Plasma [2345-7] 08/30/2024 04:37 PM 312 mg/dL N Blood chemistry[[id number]] Glucose [Mass/volume] in Serum or Plasma [2345-7] 08/30/2024 09:12 AM 267 mg/dL N Blood chemistry[[id number]] Glucose [Mass/volume] in Serum or Plasma [2345-7] 08/30/2024 10:56 AM 248 mg/dL N Blood chemistry[[id number]] Glucose [Mass/volume] in Serum or Plasma [2345-7] 08/29/2024 02:16 PM 400 mg/dL N Blood chemistry[[id number]] Glucose [Mass/volume] in Serum or Plasma [2345-7] 08/29/2024 04:45 PM 309 mg/dL N Blood chemistry[[id number]] Glucose [Mass/volume] in Serum or Plasma [2345-7] 08/29/2024 09:26 AM 425 mg/dL N Blood chemistry[[id number]] Glucose [Mass/volume] in Serum or Plasma [2345-7] 08/29/2024 12:50 PM 243 mg/dL N Blood chemistry[[id number]] Glucose [Mass/volume] in Serum or Plasma [2345-7] 08/29/2024 06:23 AM 326 mg/dL N Blood chemistry[[id number]] Glucose [Mass/volume] in Serum or Plasma [2345-7] 08/28/2024 04:06 PM 274 mg/dL N Blood chemistry[[id number]] Glucose [Mass/volume] in Serum or Plasma [2345-7] 08/28/2024 09:20 AM 335 mg/dL N Blood chemistry[[id number]] Glucose [Mass/volume] in Serum or Plasma [2345-7] 08/28/2024 12:44 PM 210 mg/dL N Blood chemistry[[id number]] Glucose [Mass/volume] in Serum or Plasma [2345-7] 08/27/2024 02:39 PM 262 mg/dL N Blood chemistry[[id number]] Glucose [Mass/volume] in Serum or Plasma [2345-7] 08/27/2024 04:46 PM 282 mg/dL N Blood chemistry[[id number]] Glucose [Mass/volume] in Serum or Plasma [2345-7] 08/27/2024 09:10 AM 237 mg/dL N Blood chemistry[[id number]] Glucose [Mass/volume] in Serum or Plasma [2345-7] 08/27/2024 01:33 PM 198 mg/dL N Blood chemistry[[id number]] Glucose [Mass/volume] in Serum or Plasma [2345-7] 08/26/2024 03:23 PM 279 mg/dL N Blood chemistry[[id number]] Glucose [Mass/volume] in Serum or Plasma [2345-7] 08/26/2024 04:05 PM 278 mg/dL N Blood chemistry[[id number]] Glucose [Mass/volume] in Serum or Plasma [2345-7] 08/26/2024 10:05 AM 210 mg/dL N Blood chemistry[[id number]] Glucose [Mass/volume] in Serum or Plasma [2345-7] 08/26/2024 12:50 PM 223 mg/dL N Blood chemistry[[id number]] Glucose [Mass/volume] in Serum or Plasma [2345-7] 08/25/2024 03:53 PM 325 mg/dL N Blood chemistry[[id number]] Glucose [Mass/volume] in Serum or Plasma [2345-7] 08/25/2024 05:12 PM 234 mg/dL N Blood chemistry[[id number]] Glucose [Mass/volume] in Serum or Plasma [2345-7] 08/25/2024 09:54 AM 242 mg/dL N Blood chemistry[[id number]] Glucose [Mass/volume] in Serum or Plasma [2345-7] 08/25/2024 01:01 PM 218 mg/dL N Blood chemistry[[id number]] Glucose [Mass/volume] in Serum or Plasma [2345-7] 08/24/2024 12:42 PM 302 mg/dL N Blood chemistry[[id number]] Glucose [Mass/volume] in Serum or Plasma [2345-7] 08/24/2024 04:33 PM 344 mg/dL N Blood chemistry[[id number]] Glucose [Mass/volume] in Serum or Plasma [2345-7] 08/24/2024 09:19 AM 226 mg/dL N Blood chemistry[[id number]] Glucose [Mass/volume] in Serum or Plasma [2345-7] 08/24/2024 12:05 PM 237 mg/dL N Blood chemistry[[id number]] Glucose [Mass/volume] in Serum or Plasma [2345-7] 08/23/2024 02:59 PM 358 mg/dL N Blood chemistry[[id number]] Glucose [Mass/volume] in Serum or Plasma [2345-7] 08/23/2024 04:21 PM 337 mg/dL N Blood chemistry[[id number]] Glucose [Mass/volume] in Serum or Plasma [2345-7] 08/23/2024 09:38 AM 196 mg/dL N Blood chemistry[[id number]] Glucose [Mass/volume] in Serum or Plasma [2345-7] 08/23/2024 11:24 AM 265 mg/dL N Blood chemistry[[id number]] Glucose [Mass/volume] in Serum or Plasma [2345-7] 08/22/2024 01:01 PM 349 mg/dL N Blood chemistry[[id number]] Glucose [Mass/volume] in Serum or Plasma [2345-7] 08/22/2024 04:23 PM 329 mg/dL N Blood chemistry[[id number]] Glucose [Mass/volume] in Serum or Plasma [2345-7] 08/22/2024 09:40 AM 265 mg/dL N Blood chemistry[[id number]] Glucose [Mass/volume] in Serum or Plasma [2345-7] 08/22/2024 12:28 PM 213 mg/dL N Blood chemistry[[id number]] Glucose [Mass/volume] in Serum or Plasma [2345-7] 08/21/2024 01:02 PM 339 mg/dL N Blood chemistry[[id number]] Glucose [Mass/volume] in Serum or Plasma [2345-7] 08/21/2024 04:36 PM 300 mg/dL N Blood chemistry[[id number]] Glucose [Mass/volume] in Serum or Plasma [2345-7] 08/21/2024 09:28 AM 324 mg/dL N Blood chemistry[[id number]] Glucose [Mass/volume] in Serum or Plasma [2345-7] 08/21/2024 01:27 PM 216 mg/dL N Blood chemistry[[id number]] Glucose [Mass/volume] in Serum or Plasma [2345-7] 08/20/2024 02:14 PM 195 mg/dL N Blood chemistry[[id number]] Glucose [Mass/volume] in Serum or Plasma [2345-7] 08/20/2024 04:17 PM 301 mg/dL N Blood chemistry[[id number]] Glucose [Mass/volume] in Serum or Plasma [2345-7] 08/20/2024 09:08 AM 271 mg/dL N Blood chemistry[[id number]] Glucose [Mass/volume] in Serum or Plasma [2345-7] 08/20/2024 12:01 PM 206 mg/dL N Blood chemistry[[id number]] Glucose [Mass/volume] in Serum or Plasma [2345-7] 08/19/2024 02:03 PM 202 mg/dL N Blood chemistry[[id number]] Glucose [Mass/volume] in Serum or Plasma [2345-7] 08/19/2024 04:29 PM 235 mg/dL N Blood chemistry[[id number]] Glucose [Mass/volume] in Serum or Plasma [2345-7] 08/19/2024 09:21 AM 325 mg/dL N Blood chemistry[[id number]] Glucose [Mass/volume] in Serum or Plasma [2345-7] 08/19/2024 12:07 PM 200 mg/dL N Blood chemistry[[id number]] Glucose [Mass/volume] in Serum or Plasma [2345-7] 08/18/2024 02:07 PM 200 mg/dL N Blood chemistry[[id number]] Glucose [Mass/volume] in Serum or Plasma [2345-7] 08/18/2024 04:38 PM 357 mg/dL N Blood chemistry[[id number]] Glucose [Mass/volume] in Serum or Plasma [2345-7] 08/18/2024 09:34 AM 322 mg/dL N Blood chemistry[[id number]] Glucose [Mass/volume] in Serum or Plasma [2345-7] 08/18/2024 12:26 PM 224 mg/dL N Blood chemistry[[id number]] Glucose [Mass/volume] in Serum or Plasma [2345-7] 08/17/2024 02:55 PM 325 mg/dL N Blood chemistry[[id number]] Glucose [Mass/volume] in Serum or Plasma [2345-7] 08/17/2024 04:20 PM 307 mg/dL N Blood chemistry[[id number]] Glucose [Mass/volume] in Serum or Plasma [2345-7] 08/17/2024 09:24 AM 237 mg/dL N Blood chemistry[[id number]] Glucose [Mass/volume] in Serum or Plasma [2345-7] 08/17/2024 12:10 PM 236 mg/dL N Blood chemistry[[id number]] Glucose [Mass/volume] in Serum or Plasma [2345-7] 08/16/2024 04:02 PM 282 mg/dL N Blood chemistry[[id number]] Glucose [Mass/volume] in Serum or Plasma [2345-7] 08/16/2024 04:46 PM 233 mg/dL N Blood chemistry[[id number]] Glucose [Mass/volume] in Serum or Plasma [2345-7] 08/16/2024 09:36 AM 286 mg/dL N Blood chemistry[[id number]] Glucose [Mass/volume] in Serum or Plasma [2345-7] 08/16/2024 01:45 PM 272 mg/dL N Blood chemistry[[id number]] Glucose [Mass/volume] in Serum or Plasma [2345-7] 08/15/2024 01:36 PM 400 mg/dL N Blood chemistry[[id number]] Glucose [Mass/volume] in Serum or Plasma [2345-7] 08/15/2024 09:18 AM 287 mg/dL N Blood chemistry[[id number]] Glucose [Mass/volume] in Serum or Plasma [2345-7] 08/15/2024 12:15 PM 198 mg/dL N Blood chemistry[[id number]] Glucose [Mass/volume] in Serum or Plasma [2345-7] 08/14/2024 02:30 PM 326 mg/dL N Blood chemistry[[id number]] Glucose [Mass/volume] in Serum or Plasma [2345-7] 08/14/2024 05:54 PM 432 mg/dL N Blood chemistry[[id number]] Glucose [Mass/volume] in Serum or Plasma [2345-7] 08/14/2024 10:55 AM 322 mg/dL N Blood chemistry[[id number]] Glucose [Mass/volume] in Serum or Plasma [2345-7] 08/14/2024 12:57 PM 280 mg/dL N Blood chemistry[[id number]] Glucose [Mass/volume] in Serum or Plasma [2345-7] 08/13/2024 02:55 PM 224 mg/dL N Blood chemistry[[id number]] Glucose [Mass/volume] in Serum or Plasma [2345-7] 08/13/2024 04:23 PM 367 mg/dL N Blood chemistry[[id number]] Glucose [Mass/volume] in Serum or Plasma [2345-7] 08/13/2024 09:15 AM 346 mg/dL N Blood chemistry[[id number]] Glucose [Mass/volume] in Serum or Plasma [2345-7] 08/13/2024 11:48 AM 241 mg/dL N Blood chemistry[[id number]] Glucose [Mass/volume] in Serum or Plasma [2345-7] 08/12/2024 02:59 PM 212 mg/dL N Blood chemistry[[id number]] Glucose [Mass/volume] in Serum or Plasma [2345-7] 08/12/2024 03:49 PM 342 mg/dL N Blood chemistry[[id number]] Glucose [Mass/volume] in Serum or Plasma [2345-7] 08/12/2024 12:57 PM 258 mg/dL N Blood chemistry[[id number]] Glucose [Mass/volume] in Serum or Plasma [2345-7] 08/12/2024 09:30 AM 383 mg/dL N Blood chemistry[[id number]] Glucose [Mass/volume] in Serum or Plasma [2345-7] 08/11/2024 04:32 PM 274 mg/dL N Blood chemistry[[id number]] Glucose [Mass/volume] in Serum or Plasma [2345-7] 08/11/2024 05:16 PM 284 mg/dL N Blood chemistry[[id number]] Glucose [Mass/volume] in Serum or Plasma [2345-7] 08/11/2024 09:38 AM 244 mg/dL N Blood chemistry[[id number]] Glucose [Mass/volume] in Serum or Plasma [2345-7] 08/11/2024 11:51 AM 231 mg/dL N Blood chemistry[[id number]] Glucose [Mass/volume] in Serum or Plasma [2345-7] 08/10/2024 01:44 PM 400 mg/dL N Blood chemistry[[id number]] Glucose [Mass/volume] in Serum or Plasma [2345-7] 08/10/2024 05:33 PM 386 mg/dL N Blood chemistry[[id number]] Glucose [Mass/volume] in Serum or Plasma [2345-7] 08/10/2024 09:23 AM 345 mg/dL N Blood chemistry[[id number]] Glucose [Mass/volume] in Serum or Plasma [2345-7] 08/10/2024 12:01 PM 219 mg/dL N Blood chemistry[[id number]] Glucose [Mass/volume] in Serum or Plasma [2345-7] 08/09/2024 01:52 PM 400 mg/dL N Blood chemistry[[id number]] Glucose [Mass/volume] in Serum or Plasma [2345-7] 08/08/2024 01:17 PM 386 mg/dL N Blood chemistry[[id number]] Glucose [Mass/volume] in Serum or Plasma [2345-7] 08/07/2024 03:43 PM 369 mg/dL N Blood chemistry[[id number]] Glucose [Mass/volume] in Serum or Plasma [2345-7] 08/07/2024 06:38 AM 345 mg/dL N Blood chemistry[[id number]] Glucose [Mass/volume] in Serum or Plasma [2345-7] 08/07/2024 02:39 PM 371 mg/dL N Blood chemistry[[id number]] Glucose [Mass/volume] in Serum or Plasma [2345-7] 08/06/2024 02:00 PM 278 mg/dL N Blood chemistry[[id number]] Glucose [Mass/volume] in Serum or Plasma [2345-7] 08/06/2024 04:36 PM 354 mg/dL N Blood chemistry[[id number]] Glucose [Mass/volume] in Serum or Plasma [2345-7] 08/06/2024 09:15 AM 348 mg/dL N Blood chemistry[[id number]] Glucose [Mass/volume] in Serum or Plasma [2345-7] 08/06/2024 12:39 PM 271 mg/dL N Blood chemistry[[id number]] Glucose [Mass/volume] in Serum or Plasma [2345-7] 08/05/2024 02:52 PM 341 mg/dL N Blood chemistry[[id number]] Glucose [Mass/volume] in Serum or Plasma [2345-7] 08/05/2024 04:21 PM 381 mg/dL N Blood chemistry[[id number]] Glucose [Mass/volume] in Serum or Plasma [2345-7] 08/05/2024 09:31 AM 351 mg/dL N Blood chemistry[[id number]] Glucose [Mass/volume] in Serum or Plasma [2345-7] 08/05/2024 12:05 PM 231 mg/dL N Blood chemistry[[id number]] Glucose [Mass/volume] in Serum or Plasma [2345-7] 08/04/2024 04:53 PM 200 mg/dL N Blood chemistry[[id number]] Glucose [Mass/volume] in Serum or Plasma [2345-7] 08/04/2024 04:35 PM 392 mg/dL N Blood chemistry[[id number]] Glucose [Mass/volume] in Serum or Plasma [2345-7] 08/04/2024 10:13 AM 422 mg/dL N Blood chemistry[[id number]] Glucose [Mass/volume] in Serum or Plasma [2345-7] 08/04/2024 12:32 PM 272 mg/dL N Blood chemistry[[id number]] Glucose [Mass/volume] in Serum or Plasma [2345-7] 08/03/2024 01:25 PM 400 mg/dL N Blood chemistry[[id number]] Glucose [Mass/volume] in Serum or Plasma [2345-7] 08/03/2024 04:28 PM 345 mg/dL N Blood chemistry[[id number]] Glucose [Mass/volume] in Serum or Plasma [2345-7] 08/03/2024 10:11 AM 361 mg/dL N Blood chemistry[[id number]] Glucose [Mass/volume] in Serum or Plasma [2345-7] 08/03/2024 12:48 PM 258 mg/dL N Blood chemistry[[id number]] Glucose [Mass/volume] in Serum or Plasma [2345-7] 08/02/2024 12:41 PM 400 mg/dL N Blood chemistry[[id number]] Glucose [Mass/volume] in Serum or Plasma [2345-7] 08/02/2024 04:16 PM 391 mg/dL N Blood chemistry[[id number]] Glucose [Mass/volume] in Serum or Plasma [2345-7] 08/02/2024 09:39 AM 326 mg/dL N Blood chemistry[[id number]] Glucose [Mass/volume] in Serum or Plasma [2345-7] 08/02/2024 12:12 PM 259 mg/dL N Blood chemistry[[id number]] Glucose [Mass/volume] in Serum or Plasma [2345-7] 08/02/2024 05:31 PM 400 mg/dL N Blood chemistry[[id number]] Glucose [Mass/volume] in Serum or Plasma [2345-7] 08/01/2024 04:46 PM 362 mg/dL N Blood chemistry[[id number]] Glucose [Mass/volume] in Serum or Plasma [2345-7] 08/01/2024 10:00 AM 339 mg/dL N Blood chemistry[[id number]] Glucose [Mass/volume] in Serum or Plasma [2345-7] 08/01/2024 11:58 AM 264 mg/dL N Blood chemistry[[id number]] Glucose [Mass/volume] in Serum or Plasma [2345-7] 07/31/2024 12:55 PM 400 mg/dL N Blood chemistry[[id number]] Glucose [Mass/volume] in Serum or Plasma [2345-7] 07/31/2024 05:18 PM 265 mg/dL N Blood chemistry[[id number]] Glucose [Mass/volume] in Serum or Plasma [2345-7] 07/31/2024 09:14 AM 218 mg/dL N Blood chemistry[[id number]] Glucose [Mass/volume] in Serum or Plasma [2345-7] 07/31/2024 02:09 PM 232 mg/dL N Blood chemistry[[id number]] Glucose [Mass/volume] in Serum or Plasma [2345-7] 07/30/2024 12:49 PM 378 mg/dL N Blood chemistry[[id number]] Glucose [Mass/volume] in Serum or Plasma [2345-7] 07/30/2024 04:40 PM 365 mg/dL N Blood chemistry[[id number]] Glucose [Mass/volume] in Serum or Plasma [2345-7] 07/30/2024 02:40 PM 211 mg/dL N Blood chemistry[[id number]] Glucose [Mass/volume] in Serum or Plasma [2345-7] 07/30/2024 09:22 AM 237 mg/dL N Blood chemistry[[id number]] Glucose [Mass/volume] in Serum or Plasma [2345-7] 07/29/2024 01:44 PM 398 mg/dL N Blood chemistry[[id number]] Glucose [Mass/volume] in Serum or Plasma [2345-7] 07/29/2024 04:16 PM 311 mg/dL N Blood chemistry[[id number]] Glucose [Mass/volume] in Serum or Plasma [2345-7] 07/29/2024 09:17 AM 335 mg/dL N Blood chemistry[[id number]] Glucose [Mass/volume] in Serum or Plasma [2345-7] 07/29/2024 01:37 PM 205 mg/dL N Blood chemistry[[id number]] Glucose [Mass/volume] in Serum or Plasma [2345-7] 07/28/2024 02:36 PM 321 mg/dL N Blood chemistry[[id number]] Glucose [Mass/volume] in Serum or Plasma [2345-7] 07/28/2024 04:19 PM 274 mg/dL N Blood chemistry[[id number]] Glucose [Mass/volume] in Serum or Plasma [2345-7] 07/28/2024 09:12 AM 248 mg/dL N Blood chemistry[[id number]] Glucose [Mass/volume] in Serum or Plasma [2345-7] 07/28/2024 11:35 AM 199 mg/dL N Blood chemistry[[id number]] Glucose [Mass/volume] in Serum or Plasma [2345-7] 07/27/2024 01:21 PM 400 mg/dL N Blood chemistry[[id number]] Glucose [Mass/volume] in Serum or Plasma [2345-7] 07/27/2024 04:29 PM 327 mg/dL N Blood chemistry[[id number]] Glucose [Mass/volume] in Serum or Plasma [2345-7] 07/27/2024 09:25 AM 303 mg/dL N Blood chemistry[[id number]] Glucose [Mass/volume] in Serum or Plasma [2345-7] 07/27/2024 12:52 PM 234 mg/dL N Blood chemistry[[id number]] Glucose [Mass/volume] in Serum or Plasma [2345-7] 07/26/2024 01:19 PM 325 mg/dL N Blood chemistry[[id number]] Glucose [Mass/volume] in Serum or Plasma [2345-7] 07/26/2024 04:33 PM 372 mg/dL N Blood chemistry[[id number]] Glucose [Mass/volume] in Serum or Plasma [2345-7] 07/26/2024 09:27 AM 339 mg/dL N Blood chemistry[[id number]] Glucose [Mass/volume] in Serum or Plasma [2345-7] 07/26/2024 12:41 PM 250 mg/dL N Blood chemistry[[id number]] Glucose [Mass/volume] in Serum or Plasma [2345-7] 07/25/2024 02:08 PM 383 mg/dL N Blood chemistry[[id number]] Glucose [Mass/volume] in Serum or Plasma [2345-7] 07/25/2024 04:26 PM 377 mg/dL N Blood chemistry[[id number]] Glucose [Mass/volume] in Serum or Plasma [2345-7] 07/25/2024 09:29 AM 302 mg/dL N Blood chemistry[[id number]] Glucose [Mass/volume] in Serum or Plasma [2345-7] 07/25/2024 12:33 PM 231 mg/dL N Blood chemistry[[id number]] Glucose [Mass/volume] in Serum or Plasma [2345-7] 2024 12:35 PM 400 mg/dL N Blood chemistry[[id number]] Glucose [Mass/volume] in Serum or Plasma [2345-7] 2024 04:05 PM 395 mg/dL N Blood chemistry[[id number]] Glucose [Mass/volume] in Serum or Plasma [2345-7] 2024 09:14 AM 373 mg/dL N Blood chemistry[[id number]] Glucose [Mass/volume] in Serum or Plasma [2345-7] 2024 12:07 PM 272 mg/dL N Blood chemistry[[id number]] Glucose [Mass/volume] in Serum or Plasma [2345-7] 07/23/2024 01:21 PM 398 mg/dL N Blood chemistry[[id number]] Glucose [Mass/volume] in Serum or Plasma [2345-7] 07/23/2024 05:11 PM 285 mg/dL N Blood chemistry[[id number]] Glucose [Mass/volume] in Serum or Plasma [2345-7] 07/23/2024 09:20 AM 473 mg/dL N Blood chemistry[[id number]] Glucose [Mass/volume] in Serum or Plasma [2345-7] 07/23/2024 01:07 PM 211 mg/dL N Blood chemistry[[id number]] Glucose [Mass/volume] in Serum or Plasma [2345-7] 07/22/2024 01:06 PM 395 mg/dL N Glucose [Mass/volume] in Serum or Plasma [2345-7] 07/22/2024 01:06 PM 281 mg/dL N Blood chemistry[[id number]] Glucose [Mass/volume] in Serum or Plasma [2345-7] 07/22/2024 04:44 PM 360 mg/dL N Blood chemistry[[id number]] Glucose [Mass/volume] in Serum or Plasma [2345-7] 07/22/2024 10:26 AM 396 mg/dL N Blood chemistry[[id number]] Glucose [Mass/volume] in Serum or Plasma [2345-7] 07/21/2024 02:01 PM 378 mg/dL N Blood chemistry[[id number]] Glucose [Mass/volume] in Serum or Plasma [2345-7] 07/21/2024 06:06 AM 339 mg/dL N Blood chemistry[[id number]] Glucose [Mass/volume] in Serum or Plasma [2345-7] 07/21/2024 12:14 PM 202 mg/dL N Blood chemistry[[id number]] Glucose [Mass/volume] in Serum or Plasma [2345-7] 07/20/2024 02:01 PM 399 mg/dL N Blood chemistry[[id number]] Glucose [Mass/volume] in Serum or Plasma [2345-7] 07/20/2024 04:53 PM 355 mg/dL N Blood chemistry[[id number]] Glucose [Mass/volume] in Serum or Plasma [2345-7] 07/20/2024 09:28 AM 358 mg/dL N Blood chemistry[[id number]] Glucose [Mass/volume] in Serum or Plasma [2345-7] 07/20/2024 11:58 AM 215 mg/dL N Blood chemistry[[id number]] Glucose [Mass/volume] in Serum or Plasma [2345-7] 07/19/2024 12:34 PM 400 mg/dL N Blood chemistry[[id number]] Glucose [Mass/volume] in Serum or Plasma [2345-7] 07/19/2024 04:18 PM 393 mg/dL N Blood chemistry[[id number]] Glucose [Mass/volume] in Serum or Plasma [2345-7] 07/19/2024 09:08 AM 413 mg/dL N Blood chemistry[[id number]] Glucose [Mass/volume] in Serum or Plasma [2345-7] 07/19/2024 12:21 PM 216 mg/dL N Blood chemistry[[id number]] Glucose [Mass/volume] in Serum or Plasma [2345-7] 07/18/2024 12:30 PM 400 mg/dL N Blood chemistry[[id number]] Glucose [Mass/volume] in Serum or Plasma [2345-7] 07/18/2024 05:25 PM 334 mg/dL N Blood chemistry[[id number]] Glucose [Mass/volume] in Serum or Plasma [2345-7] 07/18/2024 10:02 AM 465 mg/dL N Blood chemistry[[id number]] Glucose [Mass/volume] in Serum or Plasma [2345-7] 07/18/2024 11:45 AM 215 mg/dL N Blood chemistry[[id number]] Glucose [Mass/volume] in Serum or Plasma [2345-7] 07/17/2024 01:26 PM 400 mg/dL N Blood chemistry[[id number]] Glucose [Mass/volume] in Serum or Plasma [2345-7] 07/17/2024 03:45 PM 329 mg/dL N Blood chemistry[[id number]] Glucose [Mass/volume] in Serum or Plasma [2345-7] 07/17/2024 08:27 AM 379 mg/dL N Blood chemistry[[id number]] Glucose [Mass/volume] in Serum or Plasma [2345-7] 07/17/2024 01:37 PM 205 mg/dL N Blood chemistry[[id number]] Glucose [Mass/volume] in Serum or Plasma [2345-7] 07/16/2024 12:54 PM 378 mg/dL N Blood chemistry[[id number]] Glucose [Mass/volume] in Serum or Plasma [2345-7] 07/16/2024 04:27 PM 314 mg/dL N Blood chemistry[[id number]] Glucose [Mass/volume] in Serum or Plasma [2345-7] 07/16/2024 09:56 AM 401 mg/dL N Blood chemistry[[id number]] Glucose [Mass/volume] in Serum or Plasma [2345-7] 07/16/2024 12:42 PM 167 mg/dL N Blood chemistry[[id number]] Glucose [Mass/volume] in Serum or Plasma [2345-7] 07/15/2024 01:44 PM 200 mg/dL N Blood chemistry[[id number]] Glucose [Mass/volume] in Serum or Plasma [2345-7] 07/15/2024 04:43 PM 308 mg/dL N Blood chemistry[[id number]] Glucose [Mass/volume] in Serum or Plasma [2345-7] 07/15/2024 09:00 AM 304 mg/dL N Blood chemistry[[id number]] Glucose [Mass/volume] in Serum or Plasma [2345-7] 07/15/2024 12:03 PM 160 mg/dL N Blood chemistry[[id number]] Glucose [Mass/volume] in Serum or Plasma [2345-7] 07/15/2024 06:46 AM 242 mg/dL N Blood chemistry[[id number]] Glucose [Mass/volume] in Serum or Plasma [2345-7] 07/14/2024 04:24 PM 280 mg/dL N Blood chemistry[[id number]] Glucose [Mass/volume] in Serum or Plasma [2345-7] 07/14/2024 09:29 AM 336 mg/dL N Blood chemistry[[id number]] Glucose [Mass/volume] in Serum or Plasma [2345-7] 07/14/2024 12:04 PM 172 mg/dL N Blood chemistry[[id number]] Glucose [Mass/volume] in Serum or Plasma [2345-7] 07/13/2024 01:04 PM 323 mg/dL N Blood chemistry[[id number]] Glucose [Mass/volume] in Serum or Plasma [2345-7] 07/13/2024 04:47 PM 418 mg/dL N Blood chemistry[[id number]] Glucose [Mass/volume] in Serum or Plasma [2345-7] 07/13/2024 09:41 AM 292 mg/dL N Blood chemistry[[id number]] Glucose [Mass/volume] in Serum or Plasma [2345-7] 07/13/2024 12:04 PM 198 mg/dL N Blood chemistry[[id number]] Glucose [Mass/volume] in Serum or Plasma [2345-7] 07/12/2024 03:12 PM 400 mg/dL N Blood chemistry[[id number]] Glucose [Mass/volume] in Serum or Plasma [2345-7] 07/12/2024 09:42 AM 539 mg/dL N Blood chemistry[[id number]] Glucose [Mass/volume] in Serum or Plasma [2345-7] 07/12/2024 07:03 AM 400 mg/dL N Blood chemistry[[id number]] Glucose [Mass/volume] in Serum or Plasma [2345-7] 07/12/2024 12:30 PM 211 mg/dL N Blood chemistry[[id number]] Glucose [Mass/volume] in Serum or Plasma [2345-7] 07/11/2024 12:06 PM 400 mg/dL N Blood chemistry[[id number]] Glucose [Mass/volume] in Serum or Plasma [2345-7] 07/11/2024 09:11 AM 413 mg/dL N Blood chemistry[[id number]] Glucose [Mass/volume] in Serum or Plasma [2345-7] 07/11/2024 04:15 PM 417 mg/dL N Blood chemistry[[id number]] Glucose [Mass/volume] in Serum or Plasma [2345-7] 07/11/2024 12:17 PM 267 mg/dL N Blood chemistry[[id number]] Glucose [Mass/volume] in Serum or Plasma [2345-7] 07/10/2024 04:32 PM 304 mg/dL N Blood chemistry[[id number]] Glucose [Mass/volume] in Serum or Plasma [2345-7] 07/10/2024 01:25 PM 343 mg/dL N Blood chemistry[[id number]] Glucose [Mass/volume] in Serum or Plasma [2345-7] 07/10/2024 11:54 AM 189 mg/dL N Blood chemistry[[id number]] Glucose [Mass/volume] in Serum or Plasma [2345-7] 07/10/2024 09:52 AM 323 mg/dL N Blood chemistry[[id number]] Glucose [Mass/volume] in Serum or Plasma [2345-7] 07/09/2024 03:10 PM 285 mg/dL N Blood chemistry[[id number]] Glucose [Mass/volume] in Serum or Plasma [2345-7] 07/09/2024 10:09 AM 299 mg/dL N Blood chemistry[[id number]] Glucose [Mass/volume] in Serum or Plasma [2345-7] 07/09/2024 04:48 PM 399 mg/dL N Blood chemistry[[id number]] Glucose [Mass/volume] in Serum or Plasma [2345-7] 07/09/2024 12:18 PM 210 mg/dL N Blood chemistry[[id number]] Glucose [Mass/volume] in Serum or Plasma [2345-7] 07/08/2024 05:50 PM 317 mg/dL N Blood chemistry[[id number]] Glucose [Mass/volume] in Serum or Plasma [2345-7] 07/08/2024 03:39 PM 385 mg/dL N Blood chemistry[[id number]] Glucose [Mass/volume] in Serum or Plasma [2345-7] 07/08/2024 01:03 PM 195 mg/dL N Blood chemistry[[id number]] Glucose [Mass/volume] in Serum or Plasma [2345-7] 07/08/2024 10:53 AM 372 mg/dL N Blood chemistry[[id number]] Glucose [Mass/volume] in Serum or Plasma [2345-7] 07/07/2024 03:24 PM 240 mg/dL N Blood chemistry[[id number]] Glucose [Mass/volume] in Serum or Plasma [2345-7] 07/07/2024 10:39 AM 401 mg/dL N Blood chemistry[[id number]] Glucose [Mass/volume] in Serum or Plasma [2345-7] 07/07/2024 05:06 PM 375 mg/dL N Blood chemistry[[id number]] Glucose [Mass/volume] in Serum or Plasma [2345-7] 07/07/2024 01:29 PM 166 mg/dL N Blood chemistry[[id number]] Glucose [Mass/volume] in Serum or Plasma [2345-7] 07/06/2024 05:55 PM 200 mg/dL N Blood chemistry[[id number]] Glucose [Mass/volume] in Serum or Plasma [2345-7] 07/06/2024 10:33 AM 391 mg/dL N Blood chemistry[[id number]] Glucose [Mass/volume] in Serum or Plasma [2345-7] 07/06/2024 06:42 PM 283 mg/dL N Blood chemistry[[id number]] Glucose [Mass/volume] in Serum or Plasma [2345-7] 07/06/2024 05:26 PM 396 mg/dL N Blood chemistry[[id number]] Glucose [Mass/volume] in Serum or Plasma [2345-7] 07/06/2024 01:14 PM 215 mg/dL N Blood chemistry[[id number]] Glucose [Mass/volume] in Serum or Plasma [2345-7] 07/05/2024 10:55 AM 354 mg/dL N Blood chemistry[[id number]] Glucose [Mass/volume] in Serum or Plasma [2345-7] 07/05/2024 06:29 PM 293 mg/dL N Blood chemistry[[id number]] Glucose [Mass/volume] in Serum or Plasma [2345-7] 07/05/2024 01:38 PM 235 mg/dL N Blood chemistry[[id number]] Glucose [Mass/volume] in Serum or Plasma [2345-7] 07/04/2024 02:20 PM 383 mg/dL N Blood chemistry[[id number]] Glucose [Mass/volume] in Serum or Plasma [2345-7] 07/04/2024 10:17 AM 354 mg/dL N Blood chemistry[[id number]] Glucose [Mass/volume] in Serum or Plasma [2345-7] 07/04/2024 05:34 PM 379 mg/dL N Blood chemistry[[id number]] Glucose [Mass/volume] in Serum or Plasma [2345-7] 07/04/2024 01:29 PM 201 mg/dL N Blood chemistry[[id number]] Glucose [Mass/volume] in Serum or Plasma [2345-7] 07/03/2024 06:49 PM 364 mg/dL N Blood chemistry[[id number]] Glucose [Mass/volume] in Serum or Plasma [2345-7] 07/03/2024 03:23 PM 400 mg/dL N Blood chemistry[[id number]] Glucose [Mass/volume] in Serum or Plasma [2345-7] 07/03/2024 01:52 PM 264 mg/dL N Blood chemistry[[id number]] Glucose [Mass/volume] in Serum or Plasma [2345-7] 07/03/2024 11:07 AM 360 mg/dL N Blood chemistry[[id number]] Glucose [Mass/volume] in Serum or Plasma [2345-7] 07/02/2024 03:35 PM 398 mg/dL N Blood chemistry[[id number]] Glucose [Mass/volume] in Serum or Plasma [2345-7] 07/02/2024 10:55 AM 409 mg/dL N Blood chemistry[[id number]] Glucose [Mass/volume] in Serum or Plasma [2345-7] 07/02/2024 05:00 PM 354 mg/dL N Blood chemistry[[id number]] Glucose [Mass/volume] in Serum or Plasma [2345-7] 07/02/2024 01:34 PM 217 mg/dL N Blood chemistry[[id number]] Glucose [Mass/volume] in Serum or Plasma [2345-7] 07/01/2024 03:01 PM 374 mg/dL N Blood chemistry[[id number]] Glucose [Mass/volume] in Serum or Plasma [2345-7] 07/01/2024 10:51 AM 251 mg/dL N Blood chemistry[[id number]] Glucose [Mass/volume] in Serum or Plasma [2345-7] 07/01/2024 06:19 PM 269 mg/dL N Blood chemistry[[id number]] Glucose [Mass/volume] in Serum or Plasma [2345-7] 07/01/2024 06:13 PM 356 mg/dL N Blood chemistry[[id number]] Glucose [Mass/volume] in Serum or Plasma [2345-7] 07/01/2024 02:17 PM 207 mg/dL N Blood chemistry[[id number]] Glucose [Mass/volume] in Serum or Plasma [2345-7] 06/30/2024 05:40 PM 322 mg/dL N Blood chemistry[[id number]] Glucose [Mass/volume] in Serum or Plasma [2345-7] 06/30/2024 01:24 PM 166 mg/dL N Blood chemistry[[id number]] Glucose [Mass/volume] in Serum or Plasma [2345-7] 06/30/2024 10:37 AM 446 mg/dL N Blood chemistry[[id number]] Glucose [Mass/volume] in Serum or Plasma [2345-7] 06/29/2024 01:56 PM 235 mg/dL N Blood chemistry[[id number]] Glucose [Mass/volume] in Serum or Plasma [2345-7] 06/29/2024 10:33 AM 210 mg/dL N Blood chemistry[[id number]] Glucose [Mass/volume] in Serum or Plasma [2345-7] 06/29/2024 05:40 PM 299 mg/dL N Blood chemistry[[id number]] Glucose [Mass/volume] in Serum or Plasma [2345-7] 06/29/2024 12:52 PM 186 mg/dL N Blood chemistry[[id number]] Glucose [Mass/volume] in Serum or Plasma [2345-7] 06/28/2024 05:25 PM 327 mg/dL N Blood chemistry[[id number]] Glucose [Mass/volume] in Serum or Plasma [2345-7] 06/28/2024 03:03 PM 391 mg/dL N Blood chemistry[[id number]] Glucose [Mass/volume] in Serum or Plasma [2345-7] 06/28/2024 12:59 PM 240 mg/dL N Blood chemistry[[id number]] Glucose [Mass/volume] in Serum or Plasma [2345-7] 06/28/2024 10:43 AM 354 mg/dL N Blood chemistry[[id number]] Glucose [Mass/volume] in Serum or Plasma [2345-7] 06/27/2024 04:55 PM 317 mg/dL N Blood chemistry[[id number]] Glucose [Mass/volume] in Serum or Plasma [2345-7] 06/27/2024 11:05 AM 438 mg/dL N Blood chemistry[[id number]] Glucose [Mass/volume] in Serum or Plasma [2345-7] 06/27/2024 06:38 PM 329 mg/dL N Blood chemistry[[id number]] Glucose [Mass/volume] in Serum or Plasma [2345-7] 06/27/2024 05:25 PM 360 mg/dL N Blood chemistry[[id number]] Glucose [Mass/volume] in Serum or Plasma [2345-7] 06/27/2024 01:01 PM 197 mg/dL N Blood chemistry[[id number]] Glucose [Mass/volume] in Serum or Plasma [2345-7] 06/26/2024 06:07 PM 370 mg/dL N Blood chemistry[[id number]] Glucose [Mass/volume] in Serum or Plasma [2345-7] 06/26/2024 01:09 PM 177 mg/dL N Blood chemistry[[id number]] Glucose [Mass/volume] in Serum or Plasma [2345-7] 06/26/2024 11:45 AM 400 mg/dL N Blood chemistry[[id number]] Glucose [Mass/volume] in Serum or Plasma [2345-7] 06/25/2024 05:40 PM 265 mg/dL N Blood chemistry[[id number]] Glucose [Mass/volume] in Serum or Plasma [2345-7] 06/25/2024 10:31 AM 322 mg/dL N Blood chemistry[[id number]] Glucose [Mass/volume] in Serum or Plasma [2345-7] 06/25/2024 06:18 PM 244 mg/dL N Blood chemistry[[id number]] Glucose [Mass/volume] in Serum or Plasma [2345-7] 06/25/2024 05:14 PM 421 mg/dL N Blood chemistry[[id number]] Glucose [Mass/volume] in Serum or Plasma [5-7] 06/25/2024 12:49 PM 168 mg/dL N Blood chemistry[[id number]] Glucose [Mass/volume] in Serum or Plasma [2345-7] 06/24/2024 05:46 PM 323 mg/dL N Blood chemistry[[id number]] Glucose [Mass/volume] in Serum or Plasma [2345-7] 06/24/2024 12:59 PM 188 mg/dL N Blood chemistry[[id number]] Glucose [Mass/volume] in Serum or Plasma [2345-7] 06/24/2024 10:34 AM 414 mg/dL N Blood chemistry[[id number]] Glucose [Mass/volume] in Serum or Plasma [2345-7] 06/23/2024 05:20 PM 334 mg/dL N Blood chemistry[[id number]] Glucose [Mass/volume] in Serum or Plasma [2345-7] 06/23/2024 10:40 AM 257 mg/dL N Blood chemistry[[id number]] Glucose [Mass/volume] in Serum or Plasma [2345-7] 06/23/2024 05:36 PM 322 mg/dL N Blood chemistry[[id number]] Glucose [Mass/volume] in Serum or Plasma [2345-7] 06/23/2024 12:30 PM 149 mg/dL N Blood chemistry[[id number]] Glucose [Mass/volume] in Serum or Plasma [2345-7] 06/22/2024 03:01 PM 240 mg/dL N Blood chemistry[[id number]] Glucose [Mass/volume] in Serum or Plasma [2345-7] 06/22/2024 11:42 AM 374 mg/dL N Blood chemistry[[id number]] Glucose [Mass/volume] in Serum or Plasma [2345-7] 06/22/2024 05:33 PM 383 mg/dL N Blood chemistry[[id number]] Glucose [Mass/volume] in Serum or Plasma [2345-7] 06/22/2024 01:23 PM 191 mg/dL N Blood chemistry[[id number]] Glucose [Mass/volume] in Serum or Plasma [2345-7] 06/21/2024 02:28 PM 298 mg/dL N Blood chemistry[[id number]] Glucose [Mass/volume] in Serum or Plasma [2345-7] 06/21/2024 10:42 AM 259 mg/dL N Blood chemistry[[id number]] Glucose [Mass/volume] in Serum or Plasma [2345-7] 06/21/2024 05:13 PM 376 mg/dL N Blood chemistry[[id number]] Glucose [Mass/volume] in Serum or Plasma [2345-7] 06/21/2024 11:56 AM 266 mg/dL N Blood chemistry[[id number]] Glucose [Mass/volume] in Serum or Plasma [2345-7] 06/20/2024 01:07 PM 400 mg/dL N Blood chemistry[[id number]] Glucose [Mass/volume] in Serum or Plasma [2345-7] 06/20/2024 11:28 AM 444 mg/dL N Blood chemistry[[id number]] Glucose [Mass/volume] in Serum or Plasma [2345-7] 06/20/2024 05:06 PM 360 mg/dL N Blood chemistry[[id number]] Glucose [Mass/volume] in Serum or Plasma [2345-7] 06/20/2024 02:40 PM 104 mg/dL N Blood chemistry[[id number]] Glucose [Mass/volume] in Serum or Plasma [2345-7] 06/19/2024 06:06 PM 294 mg/dL N Blood chemistry[[id number]] Glucose [Mass/volume] in Serum or Plasma [2345-7] 06/19/2024 03:26 PM 372 mg/dL N Blood chemistry[[id number]] Glucose [Mass/volume] in Serum or Plasma [2345-7] 06/19/2024 02:21 PM 95 mg/dL N Blood chemistry[[id number]] Glucose [Mass/volume] in Serum or Plasma [2345-7] 06/19/2024 11:40 AM 384 mg/dL N Blood chemistry[[id number]] Glucose [Mass/volume] in Serum or Plasma [2345-7] 06/19/2024 08:27 AM 245 mg/dL N Blood chemistry[[id number]] Glucose [Mass/volume] in Serum or Plasma [2345-7] 06/18/2024 10:35 AM 335 mg/dL N Blood chemistry[[id number]] Glucose [Mass/volume] in Serum or Plasma [2345-7] 06/18/2024 05:13 PM 306 mg/dL N Blood chemistry[[id number]] Glucose [Mass/volume] in Serum or Plasma [2345-7] 06/18/2024 12:48 PM 157 mg/dL N Blood chemistry[[id number]] Glucose [Mass/volume] in Serum or Plasma [2345-7] 06/17/2024 05:29 PM 287 mg/dL N Blood chemistry[[id number]] Glucose [Mass/volume] in Serum or Plasma [2345-7] 06/17/2024 03:52 PM 240 mg/dL N Blood chemistry[[id number]] Glucose [Mass/volume] in Serum or Plasma [2345-7] 06/17/2024 02:14 PM 137 mg/dL N Blood chemistry[[id number]] Glucose [Mass/volume] in Serum or Plasma [2345-7] 06/17/2024 11:32 AM 241 mg/dL N Blood chemistry[[id number]] Glucose [Mass/volume] in Serum or Plasma [2345-7] 06/16/2024 01:20 PM 435 mg/dL N Blood chemistry[[id number]] Glucose [Mass/volume] in Serum or Plasma [2345-7] 06/16/2024 10:25 AM 486 mg/dL N Blood chemistry[[id number]] Glucose [Mass/volume] in Serum or Plasma [2345-7] 06/16/2024 06:03 PM 98 mg/dL N Blood chemistry[[id number]] Glucose [Mass/volume] in Serum or Plasma [2345-7] 06/16/2024 05:27 PM 334 mg/dL N Blood chemistry[[id number]] Glucose [Mass/volume] in Serum or Plasma [2345-7] 06/16/2024 02:45 PM 133 mg/dL N Blood chemistry[[id number]] Glucose [Mass/volume] in Serum or Plasma [2345-7] 06/15/2024 05:22 PM 226 mg/dL N Blood chemistry[[id number]] Glucose [Mass/volume] in Serum or Plasma [2345-7] 06/15/2024 01:10 PM 120 mg/dL N Blood chemistry[[id number]] Glucose [Mass/volume] in Serum or Plasma [2345-7] 06/15/2024 11:36 AM 199 mg/dL N Blood chemistry[[id number]] Glucose [Mass/volume] in Serum or Plasma [2345-7] 06/14/2024 05:30 PM 210 mg/dL N Blood chemistry[[id number]] Glucose [Mass/volume] in Serum or Plasma [2345-7] 06/14/2024 01:44 PM 292 mg/dL N Blood chemistry[[id number]] Glucose [Mass/volume] in Serum or Plasma [2345-7] 06/14/2024 12:49 PM 114 mg/dL N Blood chemistry[[id number]] Glucose [Mass/volume] in Serum or Plasma [2345-7] 06/14/2024 10:43 AM 273 mg/dL N Blood chemistry[[id number]] Glucose [Mass/volume] in Serum or Plasma [2345-7] 06/13/2024 05:13 PM 268 mg/dL N Blood chemistry[[id number]] Glucose [Mass/volume] in Serum or Plasma [2345-7] 06/13/2024 02:07 PM 247 mg/dL N Blood chemistry[[id number]] Glucose [Mass/volume] in Serum or Plasma [2345-7] 06/13/2024 01:20 PM 104 mg/dL N Blood chemistry[[id number]] Glucose [Mass/volume] in Serum or Plasma [2345-7] 06/13/2024 11:08 AM 257 mg/dL N Blood chemistry[[id number]] Glucose [Mass/volume] in Serum or Plasma [2345-7] 06/12/2024 03:03 PM 175 mg/dL N Blood chemistry[[id number]] Glucose [Mass/volume] in Serum or Plasma [2345-7] 06/12/2024 06:04 PM 196 mg/dL N Blood chemistry[[id number]] Glucose [Mass/volume] in Serum or Plasma [2345-7] 06/12/2024 01:00 PM 130 mg/dL N Blood chemistry[[id number]] Glucose [Mass/volume] in Serum or Plasma [2345-7] 06/12/2024 10:30 AM 232 mg/dL N Blood chemistry[[id number]] Glucose [Mass/volume] in Serum or Plasma [2345-7] 06/11/2024 04:59 PM 209 mg/dL N Blood chemistry[[id number]] Glucose [Mass/volume] in Serum or Plasma [2345-7] 06/11/2024 05:13 PM 232 mg/dL N Blood chemistry[[id number]] Glucose [Mass/volume] in Serum or Plasma [2345-7] 06/11/2024 02:06 PM 150 mg/dL N Blood chemistry[[id number]] Glucose [Mass/volume] in Serum or Plasma [2345-7] 06/11/2024 09:45 AM 200 mg/dL N Blood chemistry[[id number]] Glucose [Mass/volume] in Serum or Plasma [2345-7] 06/10/2024 01:54 PM 285 mg/dL N Blood chemistry[[id number]] Glucose [Mass/volume] in Serum or Plasma [2345-7] 06/10/2024 10:49 AM 131 mg/dL N Blood chemistry[[id number]] Glucose [Mass/volume] in Serum or Plasma [2345-7] 06/10/2024 05:32 PM 202 mg/dL N Blood chemistry[[id number]] Glucose [Mass/volume] in Serum or Plasma [2345-7] 06/10/2024 12:56 PM 111 mg/dL N Blood chemistry[[id number]] Glucose [Mass/volume] in Serum or Plasma [2345-7] 06/09/2024 02:22 PM 212 mg/dL N Blood chemistry[[id number]] Glucose [Mass/volume] in Serum or Plasma [2345-7] 06/09/2024 05:08 PM 180 mg/dL N Blood chemistry[[id number]] Glucose [Mass/volume] in Serum or Plasma [2345-7] 06/09/2024 01:00 PM 134 mg/dL N Blood chemistry[[id number]] Glucose [Mass/volume] in Serum or Plasma [2345-7] 06/09/2024 12:59 PM 134 mg/dL N Blood chemistry[[id number]] Glucose [Mass/volume] in Serum or Plasma [2345-7] 06/09/2024 10:30 AM 196 mg/dL N Blood chemistry[[id number]] Glucose [Mass/volume] in Serum or Plasma [2345-7] 06/08/2024 02:34 PM 281 mg/dL N Blood chemistry[[id number]] Glucose [Mass/volume] in Serum or Plasma [2345-7] 06/08/2024 05:00 PM 290 mg/dL N Blood chemistry[[id number]] Glucose [Mass/volume] in Serum or Plasma [2345-7] 06/08/2024 01:31 PM 139 mg/dL N Blood chemistry[[id number]] Glucose [Mass/volume] in Serum or Plasma [2345-7] 06/08/2024 11:26 AM 370 mg/dL N Blood chemistry[[id number]] Glucose [Mass/volume] in Serum or Plasma [2345-7] 06/07/2024 03:07 PM 267 mg/dL N Blood chemistry[[id number]] Glucose [Mass/volume] in Serum or Plasma [2345-7] 06/07/2024 06:44 PM 306 mg/dL N Blood chemistry[[id number]] Glucose [Mass/volume] in Serum or Plasma [2345-7] 06/07/2024 01:12 PM 141 mg/dL N Blood chemistry[[id number]] Glucose [Mass/volume] in Serum or Plasma [2345-7] 06/07/2024 10:51 AM 298 mg/dL N Blood chemistry[[id number]] Glucose [Mass/volume] in Serum or Plasma [2345-7] 06/07/2024 07:28 AM 400 mg/dL N Blood chemistry[[id number]] Glucose [Mass/volume] in Serum or Plasma [2345-7] 06/06/2024 06:12 PM 127 mg/dL N Blood chemistry[[id number]] Glucose [Mass/volume] in Serum or Plasma [2345-7] 06/06/2024 01:39 PM 120 mg/dL N Blood chemistry[[id number]] Glucose [Mass/volume] in Serum or Plasma [2345-7] 06/06/2024 10:17 AM 321 mg/dL N Blood chemistry[[id number]] Glucose [Mass/volume] in Serum or Plasma [2345-7] 06/05/2024 04:20 PM 236 mg/dL N Blood chemistry[[id number]] Glucose [Mass/volume] in Serum or Plasma [2345-7] 06/05/2024 02:54 PM 161 mg/dL N Blood chemistry[[id number]] Glucose [Mass/volume] in Serum or Plasma [2345-7] 06/05/2024 11:44 AM 266 mg/dL N Blood chemistry[[id number]] Glucose [Mass/volume] in Serum or Plasma [2345-7] 06/05/2024 07:15 AM 290 mg/dL N Blood chemistry[[id number]] Glucose [Mass/volume] in Serum or Plasma [2345-7] 06/04/2024 04:06 PM 513 mg/dL N Blood chemistry[[id number]] Glucose [Mass/volume] in Serum or Plasma [2345-7] 06/04/2024 10:47 AM 238 mg/dL N Blood chemistry[[id number]] Glucose [Mass/volume] in Serum or Plasma [2345-7] 06/04/2024 05:30 PM 293 mg/dL N Blood chemistry[[id number]] Glucose [Mass/volume] in Serum or Plasma [2345-7] 06/04/2024 02:07 PM 175 mg/dL N Blood chemistry[[id number]] Glucose [Mass/volume] in Serum or Plasma [2345-7] 06/03/2024 05:09 PM 225 mg/dL N Blood chemistry[[id number]] Glucose [Mass/volume] in Serum or Plasma [2345-7] 06/03/2024 10:35 AM 155 mg/dL N Blood chemistry[[id number]] Glucose [Mass/volume] in Serum or Plasma [2345-7] 06/03/2024 05:36 PM 175 mg/dL N Blood chemistry[[id number]] Glucose [Mass/volume] in Serum or Plasma [2345-7] 06/03/2024 01:20 PM 93 mg/dL N Blood chemistry[[id number]] Glucose [Mass/volume] in Serum or Plasma [2345-7] 06/02/2024 02:58 PM 315 mg/dL N Blood chemistry[[id number]] Glucose [Mass/volume] in Serum or Plasma [2345-7] 06/02/2024 03:03 PM 103 mg/dL N Blood chemistry[[id number]] Glucose [Mass/volume] in Serum or Plasma [2345-7] 06/02/2024 10:58 AM 249 mg/dL N Blood chemistry[[id number]] Glucose [Mass/volume] in Serum or Plasma [2345-7] 06/02/2024 10:52 AM 426 mg/dL N Blood chemistry[[id number]] Glucose [Mass/volume] in Serum or Plasma [2345-7] 06/02/2024 08:21 AM 223 mg/dL N Blood chemistry[[id number]] Glucose [Mass/volume] in Serum or Plasma [2345-7] 06/01/2024 05:03 PM 263 mg/dL N Blood chemistry[[id number]] Glucose [Mass/volume] in Serum or Plasma [2345-7] 06/01/2024 01:14 PM 122 mg/dL N Blood chemistry[[id number]] Glucose [Mass/volume] in Serum or Plasma [2345-7] 06/01/2024 11:52 AM 228 mg/dL N Blood chemistry[[id number]] Glucose [Mass/volume] in Serum or Plasma [2345-7] 05/31/2024 04:45 PM 296 mg/dL N Blood chemistry[[id number]] Glucose [Mass/volume] in Serum or Plasma [2345-7] 05/31/2024 06:12 PM 209 mg/dL N Blood chemistry[[id number]] Glucose [Mass/volume] in Serum or Plasma [2345-7] 05/31/2024 01:51 PM 115 mg/dL N Blood chemistry[[id number]] Glucose [Mass/volume] in Serum or Plasma [2345-7] 05/31/2024 10:49 AM 208 mg/dL N Blood chemistry[[id number]] Glucose [Mass/volume] in Serum or Plasma [2345-7] 05/30/2024 05:13 PM 262 mg/dL N Blood chemistry[[id number]] Glucose [Mass/volume] in Serum or Plasma [2345-7] 05/30/2024 01:02 PM 235 mg/dL N Blood chemistry[[id number]] Glucose [Mass/volume] in Serum or Plasma [2345-7] 05/30/2024 12:54 PM 122 mg/dL N Blood chemistry[[id number]] Glucose [Mass/volume] in Serum or Plasma [2345-7] 05/30/2024 10:59 AM 155 mg/dL N Blood chemistry[[id number]] Glucose [Mass/volume] in Serum or Plasma [2345-7] 05/29/2024 05:33 PM 150 mg/dL N Blood chemistry[[id number]] Glucose [Mass/volume] in Serum or Plasma [2345-7] 05/29/2024 04:57 PM 173 mg/dL N Blood chemistry[[id number]] Glucose [Mass/volume] in Serum or Plasma [2345-7] 05/29/2024 12:33 PM 109 mg/dL N Blood chemistry[[id number]] Glucose [Mass/volume] in Serum or Plasma [2345-7] 05/29/2024 09:49 AM 166 mg/dL N Blood chemistry[[id number]] Glucose [Mass/volume] in Serum or Plasma [2345-7] 05/28/2024 05:24 PM 224 mg/dL N Blood chemistry[[id number]] Glucose [Mass/volume] in Serum or Plasma [2345-7] 05/28/2024 04:05 PM 226 mg/dL N Blood chemistry[[id number]] Glucose [Mass/volume] in Serum or Plasma [2345-7] 05/28/2024 12:52 PM 113 mg/dL N Blood chemistry[[id number]] Glucose [Mass/volume] in Serum or Plasma [2345-7] 05/28/2024 11:24 AM 212 mg/dL N Blood chemistry[[id number]] Glucose [Mass/volume] in Serum or Plasma [2345-7] 05/27/2024 03:02 PM 262 mg/dL N Blood chemistry[[id number]] Glucose [Mass/volume] in Serum or Plasma [2345-7] 05/27/2024 10:49 AM 256 mg/dL N Blood chemistry[[id number]] Glucose [Mass/volume] in Serum or Plasma [2345-7] 05/27/2024 05:25 PM 218 mg/dL N Blood chemistry[[id number]] Glucose [Mass/volume] in Serum or Plasma [2345-7] 05/27/2024 01:01 PM 136 mg/dL N Blood chemistry[[id number]] Glucose [Mass/volume] in Serum or Plasma [2345-7] 05/26/2024 03:03 PM 178 mg/dL N Blood chemistry[[id number]] Glucose [Mass/volume] in Serum or Plasma [2345-7] 05/26/2024 05:00 PM 251 mg/dL N Blood chemistry[[id number]] Glucose [Mass/volume] in Serum or Plasma [2345-7] 05/26/2024 12:58 PM 118 mg/dL N Blood chemistry[[id number]] Glucose [Mass/volume] in Serum or Plasma [2345-7] 05/26/2024 10:38 AM 159 mg/dL N Blood chemistry[[id number]] Glucose [Mass/volume] in Serum or Plasma [2345-7] 05/25/2024 02:55 PM 223 mg/dL N Blood chemistry[[id number]] Glucose [Mass/volume] in Serum or Plasma [2345-7] 05/25/2024 05:43 PM 218 mg/dL N Blood chemistry[[id number]] Glucose [Mass/volume] in Serum or Plasma [2345-7] 05/25/2024 01:20 PM 131 mg/dL N Blood chemistry[[id number]] Glucose [Mass/volume] in Serum or Plasma [2345-7] 05/25/2024 11:19 AM 176 mg/dL N Blood chemistry[[id number]] Glucose [Mass/volume] in Serum or Plasma [2345-7] 05/24/2024 02:08 PM 304 mg/dL N Blood chemistry[[id number]] Glucose [Mass/volume] in Serum or Plasma [2345-7] 05/24/2024 05:29 PM 265 mg/dL N Blood chemistry[[id number]] Glucose [Mass/volume] in Serum or Plasma [2345-7] 05/24/2024 01:28 PM 143 mg/dL N Blood chemistry[[id number]] Glucose [Mass/volume] in Serum or Plasma [2345-7] 05/24/2024 10:41 AM 207 mg/dL N Blood chemistry[[id number]] Glucose [Mass/volume] in Serum or Plasma [2345-7] 05/23/2024 04:44 PM 320 mg/dL N Blood chemistry[[id number]] Glucose [Mass/volume] in Serum or Plasma [2345-7] 05/23/2024 06:03 PM 330 mg/dL N Blood chemistry[[id number]] Glucose [Mass/volume] in Serum or Plasma [2345-7] 05/23/2024 02:47 PM 140 mg/dL N Blood chemistry[[id number]] Glucose [Mass/volume] in Serum or Plasma [2345-7] 05/23/2024 10:57 AM 274 mg/dL N Blood chemistry[[id number]] Glucose [Mass/volume] in Serum or Plasma [2345-7] 05/22/2024 06:08 PM 226 mg/dL N Blood chemistry[[id number]] Glucose [Mass/volume] in Serum or Plasma [2345-7] 05/22/2024 02:17 PM 150 mg/dL N Blood chemistry[[id number]] Glucose [Mass/volume] in Serum or Plasma [2345-7] 05/22/2024 02:12 PM 332 mg/dL N Blood chemistry[[id number]] Glucose [Mass/volume] in Serum or Plasma [2345-7] 05/22/2024 11:45 AM 261 mg/dL N Blood chemistry[[id number]] Glucose [Mass/volume] in Serum or Plasma [2345-7] 05/21/2024 02:37 PM 217 mg/dL N Blood chemistry[[id number]] Glucose [Mass/volume] in Serum or Plasma [2345-7] 05/21/2024 11:32 AM 234 mg/dL N Blood chemistry[[id number]] Glucose [Mass/volume] in Serum or Plasma [2345-7] 05/21/2024 05:36 PM 214 mg/dL N Blood chemistry[[id number]] Glucose [Mass/volume] in Serum or Plasma [2345-7] 05/21/2024 01:40 PM 181 mg/dL N Blood chemistry[[id number]] Glucose [Mass/volume] in Serum or Plasma [2345-7] 05/20/2024 05:17 PM 211 mg/dL N Blood chemistry[[id number]] Glucose [Mass/volume] in Serum or Plasma [2345-7] 05/20/2024 02:11 PM 314 mg/dL N Blood chemistry[[id number]] Glucose [Mass/volume] in Serum or Plasma [2345-7] 05/20/2024 01:52 PM 138 mg/dL N Blood chemistry[[id number]] Glucose [Mass/volume] in Serum or Plasma [2345-7] 05/20/2024 10:20 AM 270 mg/dL N Blood chemistry[[id number]] Glucose [Mass/volume] in Serum or Plasma [2345-7] 05/19/2024 04:49 PM 215 mg/dL N Blood chemistry[[id number]] Glucose [Mass/volume] in Serum or Plasma [2345-7] 05/19/2024 01:21 PM 111 mg/dL N Blood chemistry[[id number]] Glucose [Mass/volume] in Serum or Plasma [2345-7] 05/19/2024 01:00 PM 206 mg/dL N Blood chemistry[[id number]] Glucose [Mass/volume] in Serum or Plasma [2345-7] 05/19/2024 10:14 AM 197 mg/dL N Blood chemistry[[id number]] Glucose [Mass/volume] in Serum or Plasma [2345-7] 05/18/2024 12:31 PM 247 mg/dL N Blood chemistry[[id number]] Glucose [Mass/volume] in Serum or Plasma [2345-7] 05/18/2024 05:12 PM 247 mg/dL N Blood chemistry[[id number]] Glucose [Mass/volume] in Serum or Plasma [2345-7] 05/18/2024 12:56 PM 144 mg/dL N Blood chemistry[[id number]] Glucose [Mass/volume] in Serum or Plasma [2345-7] 05/18/2024 11:12 AM 260 mg/dL N Blood chemistry[[id number]] Glucose [Mass/volume] in Serum or Plasma [2345-7] 05/17/2024 03:05 PM 279 mg/dL N Blood chemistry[[id number]] Glucose [Mass/volume] in Serum or Plasma [2345-7] 05/17/2024 05:00 PM 218 mg/dL N Blood chemistry[[id number]] Glucose [Mass/volume] in Serum or Plasma [2345-7] 05/17/2024 01:21 PM 110 mg/dL N Blood chemistry[[id number]] Glucose [Mass/volume] in Serum or Plasma [2345-7] 05/17/2024 10:31 AM 233 mg/dL N Blood chemistry[[id number]] Glucose [Mass/volume] in Serum or Plasma [2345-7] 05/16/2024 02:47 PM 250 mg/dL N Blood chemistry[[id number]] Glucose [Mass/volume] in Serum or Plasma [2345-7] 05/16/2024 05:20 PM 220 mg/dL N Blood chemistry[[id number]] Glucose [Mass/volume] in Serum or Plasma [2345-7] 05/16/2024 01:10 PM 114 mg/dL N Blood chemistry[[id number]] Glucose [Mass/volume] in Serum or Plasma [2345-7] 05/16/2024 10:48 AM 226 mg/dL N Blood chemistry[[id number]] Glucose [Mass/volume] in Serum or Plasma [2345-7] 05/16/2024 08:49 AM 254 mg/dL N Blood chemistry[[id number]] Glucose [Mass/volume] in Serum or Plasma [2345-7] 05/15/2024 05:45 PM 191 mg/dL N Blood chemistry[[id number]] Glucose [Mass/volume] in Serum or Plasma [2345-7] 05/15/2024 12:38 PM 120 mg/dL N Blood chemistry[[id number]] Glucose [Mass/volume] in Serum or Plasma [2345-7] 05/15/2024 11:39 AM 174 mg/dL N Blood chemistry[[id number]] Glucose [Mass/volume] in Serum or Plasma [2345-7] 05/14/2024 05:04 PM 230 mg/dL N Blood chemistry[[id number]] Glucose [Mass/volume] in Serum or Plasma [2345-7] 05/14/2024 04:35 PM 212 mg/dL N Blood chemistry[[id number]] Glucose [Mass/volume] in Serum or Plasma [2345-7] 05/14/2024 12:33 PM 117 mg/dL N Blood chemistry[[id number]] Glucose [Mass/volume] in Serum or Plasma [2345-7] 05/14/2024 10:39 AM 148 mg/dL N Blood chemistry[[id number]] Glucose [Mass/volume] in Serum or Plasma [2345-7] 05/13/2024 04:08 PM 180 mg/dL N Blood chemistry[[id number]] Glucose [Mass/volume] in Serum or Plasma [2345-7] 05/13/2024 10:55 AM 132 mg/dL N Blood chemistry[[id number]] Glucose [Mass/volume] in Serum or Plasma [2345-7] 05/13/2024 05:10 PM 224 mg/dL N Blood chemistry[[id number]] Glucose [Mass/volume] in Serum or Plasma [2345-7] 05/13/2024 12:36 PM 133 mg/dL N Blood chemistry[[id number]] Glucose [Mass/volume] in Serum or Plasma [2345-7] 05/12/2024 04:08 PM 180 mg/dL N Blood chemistry[[id number]] Glucose [Mass/volume] in Serum or Plasma [2345-7] 05/12/2024 05:12 PM 237 mg/dL N Blood chemistry[[id number]] Glucose [Mass/volume] in Serum or Plasma [2345-7] 05/12/2024 01:09 PM 113 mg/dL N Blood chemistry[[id number]] Glucose [Mass/volume] in Serum or Plasma [2345-7] 05/12/2024 10:59 AM 217 mg/dL N Blood chemistry[[id number]] Glucose [Mass/volume] in Serum or Plasma [2345-7] 05/11/2024 03:26 PM 185 mg/dL N Blood chemistry[[id number]] Glucose [Mass/volume] in Serum or Plasma [2345-7] 05/11/2024 05:28 PM 239 mg/dL N Blood chemistry[[id number]] Glucose [Mass/volume] in Serum or Plasma [2345-7] 05/11/2024 12:44 PM 159 mg/dL N Blood chemistry[[id number]] Glucose [Mass/volume] in Serum or Plasma [2345-7] 05/10/2024 02:02 PM 216 mg/dL N Blood chemistry[[id number]] Glucose [Mass/volume] in Serum or Plasma [2345-7] 05/10/2024 01:40 PM 155 mg/dL N Blood chemistry[[id number]] Glucose [Mass/volume] in Serum or Plasma [2345-7] 05/10/2024 10:44 AM 241 mg/dL N Blood chemistry[[id number]] Glucose [Mass/volume] in Serum or Plasma [2345-7] 05/10/2024 07:07 AM 187 mg/dL N Blood chemistry[[id number]] Glucose [Mass/volume] in Serum or Plasma [2345-7] 05/09/2024 02:14 PM 259 mg/dL N Blood chemistry[[id number]] Glucose [Mass/volume] in Serum or Plasma [2345-7] 05/09/2024 05:26 PM 337 mg/dL N Blood chemistry[[id number]] Glucose [Mass/volume] in Serum or Plasma [2345-7] 05/09/2024 01:53 PM 144 mg/dL N Blood chemistry[[id number]] Glucose [Mass/volume] in Serum or Plasma [2345-7] 05/09/2024 10:50 AM 224 mg/dL N Blood chemistry[[id number]] Glucose [Mass/volume] in Serum or Plasma [2345-7] 05/08/2024 02:00 PM 336 mg/dL N Blood chemistry[[id number]] Glucose [Mass/volume] in Serum or Plasma [2345-7] 05/08/2024 05:05 PM 242 mg/dL N Blood chemistry[[id number]] Glucose [Mass/volume] in Serum or Plasma [2345-7] 05/08/2024 01:18 PM 140 mg/dL N Blood chemistry[[id number]] Glucose [Mass/volume] in Serum or Plasma [2345-7] 05/08/2024 10:16 AM 225 mg/dL N Blood chemistry[[id number]] Glucose [Mass/volume] in Serum or Plasma [2345-7] 05/07/2024 05:18 PM 361 mg/dL N Blood chemistry[[id number]] Glucose [Mass/volume] in Serum or Plasma [2345-7] 05/07/2024 02:02 PM 285 mg/dL N Blood chemistry[[id number]] Glucose [Mass/volume] in Serum or Plasma [2345-7] 05/07/2024 01:08 PM 181 mg/dL N Blood chemistry[[id number]] Glucose [Mass/volume] in Serum or Plasma [2345-7] 05/07/2024 10:25 AM 265 mg/dL N Blood chemistry[[id number]] Glucose [Mass/volume] in Serum or Plasma [2345-7] 05/06/2024 03:02 PM 295 mg/dL N Blood chemistry[[id number]] Glucose [Mass/volume] in Serum or Plasma [2345-7] 05/06/2024 10:17 AM 225 mg/dL N Blood chemistry[[id number]] Glucose [Mass/volume] in Serum or Plasma [2345-7] 05/06/2024 05:30 PM 274 mg/dL N Blood chemistry[[id number]] Glucose [Mass/volume] in Serum or Plasma [2345-7] 05/06/2024 01:09 PM 184 mg/dL N Blood chemistry[[id number]] Glucose [Mass/volume] in Serum or Plasma [2345-7] 05/05/2024 03:05 PM 280 mg/dL N Blood chemistry[[id number]] Glucose [Mass/volume] in Serum or Plasma [2345-7] 05/05/2024 05:39 PM 255 mg/dL N Blood chemistry[[id number]] Glucose [Mass/volume] in Serum or Plasma [2345-7] 05/05/2024 12:49 PM 192 mg/dL N Blood chemistry[[id number]] Glucose [Mass/volume] in Serum or Plasma [2345-7] 05/05/2024 10:49 AM 285 mg/dL N Blood chemistry[[id number]] Glucose [Mass/volume] in Serum or Plasma [2345-7] 05/04/2024 03:32 PM 287 mg/dL N Blood chemistry[[id number]] Glucose [Mass/volume] in Serum or Plasma [2345-7] 05/04/2024 05:16 PM 280 mg/dL N Blood chemistry[[id number]] Glucose [Mass/volume] in Serum or Plasma [2345-7] 05/04/2024 12:42 PM 186 mg/dL N Blood chemistry[[id number]] Glucose [Mass/volume] in Serum or Plasma [2345-7] 05/04/2024 10:06 AM 228 mg/dL N Blood chemistry[[id number]] Glucose [Mass/volume] in Serum or Plasma [2345-7] 05/03/2024 02:14 PM 244 mg/dL N Blood chemistry[[id number]] Glucose [Mass/volume] in Serum or Plasma [2345-7] 05/03/2024 05:17 PM 303 mg/dL N Blood chemistry[[id number]] Glucose [Mass/volume] in Serum or Plasma [2345-7] 05/03/2024 11:12 AM 176 mg/dL N Blood chemistry[[id number]] Glucose [Mass/volume] in Serum or Plasma [2345-7] 05/03/2024 10:22 AM 218 mg/dL N Blood chemistry[[id number]] Glucose [Mass/volume] in Serum or Plasma [2345-7] 05/02/2024 01:45 PM 257 mg/dL N Blood chemistry[[id number]] Glucose [Mass/volume] in Serum or Plasma [2345-7] 05/02/2024 05:33 PM 230 mg/dL N Blood chemistry[[id number]] Glucose [Mass/volume] in Serum or Plasma [2345-7] 05/02/2024 12:56 PM 183 mg/dL N Blood chemistry[[id number]] Glucose [Mass/volume] in Serum or Plasma [2345-7] 05/02/2024 10:18 AM 217 mg/dL N Blood chemistry[[id number]] Glucose [Mass/volume] in Serum or Plasma [2345-7] 05/01/2024 01:16 PM 202 mg/dL N Blood chemistry[[id number]] Glucose [Mass/volume] in Serum or Plasma [2345-7] 05/01/2024 05:25 PM 196 mg/dL N Blood chemistry[[id number]] Glucose [Mass/volume] in Serum or Plasma [2345-7] 05/01/2024 01:00 PM 174 mg/dL N Blood chemistry[[id number]] Glucose [Mass/volume] in Serum or Plasma [2345-7] 05/01/2024 09:43 AM 164 mg/dL N Blood chemistry[[id number]] Glucose [Mass/volume] in Serum or Plasma [2345-7] 04/30/2024 05:10 PM 257 mg/dL N Blood chemistry[[id number]] Glucose [Mass/volume] in Serum or Plasma [2345-7] 04/30/2024 01:25 PM 236 mg/dL N Blood chemistry[[id number]] Glucose [Mass/volume] in Serum or Plasma [2345-7] 04/30/2024 12:39 PM 176 mg/dL N Blood chemistry[[id number]] Glucose [Mass/volume] in Serum or Plasma [2345-7] 04/30/2024 10:15 AM 133 mg/dL N Blood chemistry[[id number]] Glucose [Mass/volume] in Serum or Plasma [2345-7] 04/29/2024 12:48 PM 280 mg/dL N Blood chemistry[[id number]] Glucose [Mass/volume] in Serum or Plasma [2345-7] 04/29/2024 10:18 AM 139 mg/dL N Blood chemistry[[id number]] Glucose [Mass/volume] in Serum or Plasma [2345-7] 04/29/2024 05:40 PM 229 mg/dL N Blood chemistry[[id number]] Glucose [Mass/volume] in Serum or Plasma [2345-7] 04/29/2024 12:45 PM 137 mg/dL N Blood chemistry[[id number]] Glucose [Mass/volume] in Serum or Plasma [2345-7] 04/28/2024 01:45 PM 228 mg/dL N Blood chemistry[[id number]] Glucose [Mass/volume] in Serum or Plasma [2345-7] 04/28/2024 05:56 PM 212 mg/dL N Blood chemistry[[id number]] Glucose [Mass/volume] in Serum or Plasma [2345-7] 04/28/2024 12:58 PM 166 mg/dL N Blood chemistry[[id number]] Glucose [Mass/volume] in Serum or Plasma [2345-7] 04/28/2024 10:00 AM 217 mg/dL N Blood chemistry[[id number]] Glucose [Mass/volume] in Serum or Plasma [2345-7] 04/27/2024 05:28 PM 238 mg/dL N Blood chemistry[[id number]] Glucose [Mass/volume] in Serum or Plasma [2345-7] 04/27/2024 01:19 PM 255 mg/dL N Blood chemistry[[id number]] Glucose [Mass/volume] in Serum or Plasma [2345-7] 04/27/2024 12:37 PM 203 mg/dL N Blood chemistry[[id number]] Glucose [Mass/volume] in Serum or Plasma [2345-7] 04/27/2024 10:14 AM 187 mg/dL N Blood chemistry[[id number]] Glucose [Mass/volume] in Serum or Plasma [2345-7] 04/26/2024 04:43 PM 303 mg/dL N Blood chemistry[[id number]] Glucose [Mass/volume] in Serum or Plasma [2345-7] 04/26/2024 10:48 AM 222 mg/dL N Blood chemistry[[id number]] Glucose [Mass/volume] in Serum or Plasma [2345-7] 04/26/2024 06:09 PM 148 mg/dL N Blood chemistry[[id number]] Glucose [Mass/volume] in Serum or Plasma [2345-7] 04/26/2024 01:32 PM 129 mg/dL N Blood chemistry[[id number]] Glucose [Mass/volume] in Serum or Plasma [2345-7] 04/25/2024 04:50 PM 205 mg/dL N Blood chemistry[[id number]] Glucose [Mass/volume] in Serum or Plasma [2345-7] 04/25/2024 04:58 PM 184 mg/dL N Blood chemistry[[id number]] Glucose [Mass/volume] in Serum or Plasma [2345-7] 04/25/2024 01:06 PM 166 mg/dL N Blood chemistry[[id number]] Glucose [Mass/volume] in Serum or Plasma [2345-7] 04/25/2024 11:03 AM 241 mg/dL N Blood chemistry[[id number]] Glucose [Mass/volume] in Serum or Plasma [2345-7] 04/24/2024 12:35 PM 346 mg/dL N Blood chemistry[[id number]] Glucose [Mass/volume] in Serum or Plasma [2345-7] 04/24/2024 05:39 PM 250 mg/dL N Blood chemistry[[id number]] Glucose [Mass/volume] in Serum or Plasma [2345-7] 04/24/2024 03:48 PM 128 mg/dL N Blood chemistry[[id number]] Glucose [Mass/volume] in Serum or Plasma [2345-7] 04/24/2024 09:57 AM 242 mg/dL N Blood chemistry[[id number]] Glucose [Mass/volume] in Serum or Plasma [2345-7] 04/23/2024 06:00 PM 152 mg/dL N Blood chemistry[[id number]] Glucose [Mass/volume] in Serum or Plasma [2345-7] 04/23/2024 03:01 PM 378 mg/dL N Blood chemistry[[id number]] Glucose [Mass/volume] in Serum or Plasma [2345-7] 04/23/2024 01:23 PM 140 mg/dL N Blood chemistry[[id number]] Glucose [Mass/volume] in Serum or Plasma [2345-7] 04/23/2024 10:16 AM 162 mg/dL N Blood chemistry[[id number]] Glucose [Mass/volume] in Serum or Plasma [2345-7] 04/22/2024 03:23 PM 212 mg/dL N Blood chemistry[[id number]] Glucose [Mass/volume] in Serum or Plasma [2345-7] 04/22/2024 10:13 AM 217 mg/dL N Blood chemistry[[id number]] Glucose [Mass/volume] in Serum or Plasma [2345-7] 04/22/2024 05:23 PM 232 mg/dL N Blood chemistry[[id number]] Glucose [Mass/volume] in Serum or Plasma [2345-7] 04/22/2024 01:48 PM 172 mg/dL N Blood chemistry[[id number]] Glucose [Mass/volume] in Serum or Plasma [2345-7] 04/22/2024 01:46 PM 172 mg/dL N Blood chemistry[[id number]] Glucose [Mass/volume] in Serum or Plasma [2345-7] 04/21/2024 05:00 PM 174 mg/dL N Blood chemistry[[id number]] Glucose [Mass/volume] in Serum or Plasma [2345-7] 04/21/2024 03:36 PM 188 mg/dL N Blood chemistry[[id number]] Glucose [Mass/volume] in Serum or Plasma [2345-7] 04/21/2024 01:03 PM 124 mg/dL N Blood chemistry[[id number]] Glucose [Mass/volume] in Serum or Plasma [2345-7] 04/21/2024 10:41 AM 196 mg/dL N Blood chemistry[[id number]] Glucose [Mass/volume] in Serum or Plasma [2345-7] 04/20/2024 05:18 PM 195 mg/dL N Blood chemistry[[id number]] Glucose [Mass/volume] in Serum or Plasma [2345-7] 04/20/2024 02:10 PM 202 mg/dL N Blood chemistry[[id number]] Glucose [Mass/volume] in Serum or Plasma [2345-7] 04/20/2024 10:01 AM 136 mg/dL N Blood chemistry[[id number]] Glucose [Mass/volume] in Serum or Plasma [2345-7] 04/20/2024 01:14 PM 118 mg/dL N Blood chemistry[[id number]] Glucose [Mass/volume] in Serum or Plasma [2345-7] 04/20/2024 10:58 AM 199 mg/dL N Blood chemistry[[id number]] Glucose [Mass/volume] in Serum or Plasma [2345-7] 04/19/2024 05:08 PM 233 mg/dL N Blood chemistry[[id number]] Glucose [Mass/volume] in Serum or Plasma [2345-7] 04/19/2024 10:10 AM 186 mg/dL N Blood chemistry[[id number]] Glucose [Mass/volume] in Serum or Plasma [2345-7] 04/19/2024 12:54 PM 145 mg/dL N Blood chemistry[[id number]] Glucose [Mass/volume] in Serum or Plasma [2345-7] 04/18/2024 05:25 PM 230 mg/dL N Blood chemistry[[id number]] Glucose [Mass/volume] in Serum or Plasma [2345-7] 04/18/2024 02:00 PM 206 mg/dL N Blood chemistry[[id number]] Glucose [Mass/volume] in Serum or Plasma [2345-7] 04/18/2024 10:35 AM 142 mg/dL N Blood chemistry[[id number]] Glucose [Mass/volume] in Serum or Plasma [2345-7] 04/18/2024 12:54 PM 150 mg/dL N Blood chemistry[[id number]] Glucose [Mass/volume] in Serum or Plasma [2345-7] 04/17/2024 06:20 PM 141 mg/dL N Blood chemistry[[id number]] Glucose [Mass/volume] in Serum or Plasma [2345-7] 04/17/2024 06:19 PM 194 mg/dL N Blood chemistry[[id number]] Glucose [Mass/volume] in Serum or Plasma [2345-7] 04/17/2024 02:47 PM 206 mg/dL N Blood chemistry[[id number]] Glucose [Mass/volume] in Serum or Plasma [2345-7] 04/17/2024 11:49 AM 114 mg/dL N Blood chemistry[[id number]] Glucose [Mass/volume] in Serum or Plasma [2345-7] 04/16/2024 04:00 PM 242 mg/dL N Blood chemistry[[id number]] Glucose [Mass/volume] in Serum or Plasma [2345-7] 04/16/2024 10:02 AM 129 mg/dL N Blood chemistry[[id number]] Glucose [Mass/volume] in Serum or Plasma [2345-7] 04/16/2024 05:19 PM 217 mg/dL N Blood chemistry[[id number]] Glucose [Mass/volume] in Serum or Plasma [2345-7] 04/16/2024 12:43 PM 141 mg/dL N Blood chemistry[[id number]] Glucose [Mass/volume] in Serum or Plasma [2345-7] 04/15/2024 05:52 PM 200 mg/dL N Blood chemistry[[id number]] Glucose [Mass/volume] in Serum or Plasma [2345-7] 04/15/2024 10:16 AM 182 mg/dL N Blood chemistry[[id number]] Glucose [Mass/volume] in Serum or Plasma [2345-7] 04/15/2024 05:00 PM 134 mg/dL N Blood chemistry[[id number]] Glucose [Mass/volume] in Serum or Plasma [2345-7] 04/15/2024 01:48 PM 157 mg/dL N Blood chemistry[[id number]] Glucose [Mass/volume] in Serum or Plasma [2345-7] 04/14/2024 03:51 PM 249 mg/dL N Blood chemistry[[id number]] Glucose [Mass/volume] in Serum or Plasma [2345-7] 04/14/2024 05:17 PM 168 mg/dL N Blood chemistry[[id number]] Glucose [Mass/volume] in Serum or Plasma [2345-7] 04/14/2024 12:14 PM 143 mg/dL N Blood chemistry[[id number]] Glucose [Mass/volume] in Serum or Plasma [2345-7] 04/14/2024 09:44 AM 157 mg/dL N Blood chemistry[[id number]] Glucose [Mass/volume] in Serum or Plasma [2345-7] 04/13/2024 04:52 PM 295 mg/dL N Blood chemistry[[id number]] Glucose [Mass/volume] in Serum or Plasma [2345-7] 04/13/2024 02:22 PM 188 mg/dL N Blood chemistry[[id number]] Glucose [Mass/volume] in Serum or Plasma [2345-7] 04/13/2024 10:14 AM 130 mg/dL N Blood chemistry[[id number]] Glucose [Mass/volume] in Serum or Plasma [2345-7] 04/13/2024 12:32 PM 149 mg/dL N Blood chemistry[[id number]] Glucose [Mass/volume] in Serum or Plasma [2345-7] 04/12/2024 01:00 PM 289 mg/dL N Blood chemistry[[id number]] Glucose [Mass/volume] in Serum or Plasma [2345-7] 04/12/2024 10:31 AM 145 mg/dL N Blood chemistry[[id number]] Glucose [Mass/volume] in Serum or Plasma [2345-7] 04/12/2024 06:05 PM 206 mg/dL N Blood chemistry[[id number]] Glucose [Mass/volume] in Serum or Plasma [2345-7] 04/12/2024 01:02 PM 149 mg/dL N Blood chemistry[[id number]] Glucose [Mass/volume] in Serum or Plasma [2345-7] 04/11/2024 05:10 PM 390 mg/dL N Blood chemistry[[id number]] Glucose [Mass/volume] in Serum or Plasma [2345-7] 04/11/2024 04:11 PM 206 mg/dL N Blood chemistry[[id number]] Glucose [Mass/volume] in Serum or Plasma [2345-7] 04/11/2024 02:06 PM 110 mg/dL N Blood chemistry[[id number]] Glucose [Mass/volume] in Serum or Plasma [2345-7] 04/11/2024 10:40 AM 162 mg/dL N Blood chemistry[[id number]] Glucose [Mass/volume] in Serum or Plasma [2345-7] 04/10/2024 05:48 PM 164 mg/dL N Blood chemistry[[id number]] Glucose [Mass/volume] in Serum or Plasma [2345-7] 04/10/2024 04:47 PM 160 mg/dL N Blood chemistry[[id number]] Glucose [Mass/volume] in Serum or Plasma [2345-7] 04/10/2024 01:21 PM 137 mg/dL N Blood chemistry[[id number]] Glucose [Mass/volume] in Serum or Plasma [2345-7] 04/10/2024 11:45 AM 336 mg/dL N Blood chemistry[[id number]] Glucose [Mass/volume] in Serum or Plasma [2345-7] 04/09/2024 06:07 PM 185 mg/dL N Blood chemistry[[id number]] Glucose [Mass/volume] in Serum or Plasma [2345-7] 04/09/2024 03:44 PM 235 mg/dL N Blood chemistry[[id number]] Glucose [Mass/volume] in Serum or Plasma [2345-7] 04/09/2024 01:28 PM 134 mg/dL N Blood chemistry[[id number]] Glucose [Mass/volume] in Serum or Plasma [2345-7] 04/09/2024 10:10 AM 150 mg/dL N Blood chemistry[[id number]] Glucose [Mass/volume] in Serum or Plasma [2345-7] 04/08/2024 04:55 PM 152 mg/dL N Blood chemistry[[id number]] Glucose [Mass/volume] in Serum or Plasma [2345-7] 04/08/2024 01:39 PM 234 mg/dL N Blood chemistry[[id number]] Glucose [Mass/volume] in Serum or Plasma [2345-7] 04/08/2024 01:07 PM 137 mg/dL N Blood chemistry[[id number]] Glucose [Mass/volume] in Serum or Plasma [2345-7] 04/08/2024 10:57 AM 174 mg/dL N Blood chemistry[[id number]] Glucose [Mass/volume] in Serum or Plasma [2345-7] 04/07/2024 05:42 PM 113 mg/dL N Blood chemistry[[id number]] Glucose [Mass/volume] in Serum or Plasma [2345-7] 04/07/2024 01:30 PM 248 mg/dL N Blood chemistry[[id number]] Glucose [Mass/volume] in Serum or Plasma [2345-7] 04/07/2024 01:26 PM 141 mg/dL N Blood chemistry[[id number]] Glucose [Mass/volume] in Serum or Plasma [2345-7] 04/07/2024 09:44 AM 194 mg/dL N Blood chemistry[[id number]] Glucose [Mass/volume] in Serum or Plasma [2345-7] 04/06/2024 05:20 PM 176 mg/dL N Blood chemistry[[id number]] Glucose [Mass/volume] in Serum or Plasma [2345-7] 04/06/2024 04:48 PM 196 mg/dL N Blood chemistry[[id number]] Glucose [Mass/volume] in Serum or Plasma [2345-7] 04/06/2024 12:48 PM 108 mg/dL N Blood chemistry[[id number]] Glucose [Mass/volume] in Serum or Plasma [2345-7] 04/06/2024 10:24 AM 140 mg/dL N Blood chemistry[[id number]] Glucose [Mass/volume] in Serum or Plasma [2345-7] 04/05/2024 05:21 PM 197 mg/dL N Blood chemistry[[id number]] Glucose [Mass/volume] in Serum or Plasma [2345-7] 04/05/2024 01:18 PM 183 mg/dL N Blood chemistry[[id number]] Glucose [Mass/volume] in Serum or Plasma [2345-7] 04/05/2024 11:26 AM 114 mg/dL N Blood chemistry[[id number]] Glucose [Mass/volume] in Serum or Plasma [2345-7] 04/05/2024 10:18 AM 156 mg/dL N Blood chemistry[[id number]] Glucose [Mass/volume] in Serum or Plasma [2345-7] 04/04/2024 05:15 PM 196 mg/dL N Blood chemistry[[id number]] Glucose [Mass/volume] in Serum or Plasma [2345-7] 04/04/2024 01:30 PM 222 mg/dL N Blood chemistry[[id number]] Glucose [Mass/volume] in Serum or Plasma [2345-7] 04/04/2024 12:37 PM 135 mg/dL N Blood chemistry[[id number]] Glucose [Mass/volume] in Serum or Plasma [2345-7] 04/04/2024 10:17 AM 150 mg/dL N Blood chemistry[[id number]] Glucose [Mass/volume] in Serum or Plasma [2345-7] 04/04/2024 07:00 AM 200 mg/dL N Blood chemistry[[id number]] Glucose [Mass/volume] in Serum or Plasma [2345-7] 04/03/2024 04:03 PM 266 mg/dL N Blood chemistry[[id number]] Glucose [Mass/volume] in Serum or Plasma [2345-7] 04/03/2024 12:55 PM 388 mg/dL N Blood chemistry[[id number]] Glucose [Mass/volume] in Serum or Plasma [2345-7] 04/03/2024 09:00 AM 176 mg/dL N Blood chemistry[[id number]] Glucose [Mass/volume] in Serum or Plasma [2345-7] 04/02/2024 05:05 PM 220 mg/dL N Blood chemistry[[id number]] Glucose [Mass/volume] in Serum or Plasma [2345-7] 04/02/2024 01:03 PM 213 mg/dL N Blood chemistry[[id number]] Glucose [Mass/volume] in Serum or Plasma [2345-7] 04/02/2024 12:44 PM 126 mg/dL N Blood chemistry[[id number]] Glucose [Mass/volume] in Serum or Plasma [2345-7] 04/02/2024 10:16 AM 160 mg/dL N Blood chemistry[[id number]] Glucose [Mass/volume] in Serum or Plasma [2345-7] 04/01/2024 05:19 PM 217 mg/dL N Blood chemistry[[id number]] Glucose [Mass/volume] in Serum or Plasma [2345-7] 04/01/2024 03:29 PM 219 mg/dL N Blood chemistry[[id number]] Glucose [Mass/volume] in Serum or Plasma [2345-7] 04/01/2024 12:43 PM 240 mg/dL N Blood chemistry[[id number]] Glucose [Mass/volume] in Serum or Plasma [2345-7] 04/01/2024 10:07 AM 163 mg/dL N Blood chemistry[[id number]] Glucose [Mass/volume] in Serum or Plasma [2345-7] 03/31/2024 05:21 PM 173 mg/dL N Blood chemistry[[id number]] Glucose [Mass/volume] in Serum or Plasma [2345-7] 03/31/2024 02:12 PM 267 mg/dL N Blood chemistry[[id number]] Glucose [Mass/volume] in Serum or Plasma [2345-7] 03/31/2024 12:55 PM 136 mg/dL N Blood chemistry[[id number]] Glucose [Mass/volume] in Serum or Plasma [2345-7] 03/31/2024 10:08 AM 180 mg/dL N Blood chemistry[[id number]] Glucose [Mass/volume] in Serum or Plasma [2345-7] 03/30/2024 05:00 PM 212 mg/dL N Blood chemistry[[id number]] Glucose [Mass/volume] in Serum or Plasma [2345-7] 03/30/2024 03:02 PM 180 mg/dL N Blood chemistry[[id number]] Glucose [Mass/volume] in Serum or Plasma [2345-7] 03/30/2024 12:38 PM 224 mg/dL N Blood chemistry[[id number]] Glucose [Mass/volume] in Serum or Plasma [2345-7] 03/30/2024 10:05 AM 163 mg/dL N Blood chemistry[[id number]] Glucose [Mass/volume] in Serum or Plasma [2345-7] 03/29/2024 05:53 PM 127 mg/dL N Blood chemistry[[id number]] Glucose [Mass/volume] in Serum or Plasma [2345-7] 03/29/2024 03:30 PM 217 mg/dL N Blood chemistry[[id number]] Glucose [Mass/volume] in Serum or Plasma [2345-7] 03/29/2024 01:03 PM 111 mg/dL N Blood chemistry[[id number]] Glucose [Mass/volume] in Serum or Plasma [2345-7] 03/29/2024 10:29 AM 171 mg/dL N Blood chemistry[[id number]] Glucose [Mass/volume] in Serum or Plasma [2345-7] 03/28/2024 05:44 PM 117 mg/dL N Blood chemistry[[id number]] Glucose [Mass/volume] in Serum or Plasma [2345-7] 03/28/2024 03:24 PM 209 mg/dL N Blood chemistry[[id number]] Glucose [Mass/volume] in Serum or Plasma [2345-7] 03/28/2024 01:36 PM 133 mg/dL N Blood chemistry[[id number]] Glucose [Mass/volume] in Serum or Plasma [2345-7] 03/28/2024 11:30 AM 156 mg/dL N Blood chemistry[[id number]] Glucose [Mass/volume] in Serum or Plasma [2345-7] 03/27/2024 05:23 PM 177 mg/dL N Blood chemistry[[id number]] Glucose [Mass/volume] in Serum or Plasma [2345-7] 03/27/2024 02:28 PM 204 mg/dL N Blood chemistry[[id number]] Glucose [Mass/volume] in Serum or Plasma [2345-7] 03/27/2024 01:32 PM 123 mg/dL N Blood chemistry[[id number]] Glucose [Mass/volume] in Serum or Plasma [2345-7] 03/27/2024 11:45 AM 151 mg/dL N Blood chemistry[[id number]] Glucose [Mass/volume] in Serum or Plasma [2345-7] 03/27/2024 07:13 AM 178 mg/dL N Blood chemistry[[id number]] Glucose [Mass/volume] in Serum or Plasma [2345-7] 03/26/2024 05:42 PM 168 mg/dL N Blood chemistry[[id number]] Glucose [Mass/volume] in Serum or Plasma [2345-7] 03/26/2024 01:23 PM 138 mg/dL N Blood chemistry[[id number]] Glucose [Mass/volume] in Serum or Plasma [2345-7] 03/26/2024 11:29 AM 146 mg/dL N Blood chemistry[[id number]] Glucose [Mass/volume] in Serum or Plasma [2345-7] 03/25/2024 05:10 PM 163 mg/dL N Blood chemistry[[id number]] Glucose [Mass/volume] in Serum or Plasma [2345-7] 03/25/2024 03:39 PM 184 mg/dL N Blood chemistry[[id number]] Glucose [Mass/volume] in Serum or Plasma [2345-7] 03/25/2024 01:19 PM 130 mg/dL N Blood chemistry[[id number]] Glucose [Mass/volume] in Serum or Plasma [2345-7] 03/25/2024 10:27 AM 175 mg/dL N Blood chemistry[[id number]] Glucose [Mass/volume] in Serum or Plasma [2345-7] 03/24/2024 05:23 PM 137 mg/dL N Blood chemistry[[id number]] Glucose [Mass/volume] in Serum or Plasma [2345-7] 03/24/2024 03:03 PM 185 mg/dL N Blood chemistry[[id number]] Glucose [Mass/volume] in Serum or Plasma [2345-7] 03/24/2024 12:56 PM 157 mg/dL N Blood chemistry[[id number]] Glucose [Mass/volume] in Serum or Plasma [2345-7] 03/24/2024 09:10 AM 169 mg/dL N Blood chemistry[[id number]] Glucose [Mass/volume] in Serum or Plasma [2345-7] 03/23/2024 05:22 PM 155 mg/dL N Blood chemistry[[id number]] Glucose [Mass/volume] in Serum or Plasma [2345-7] 03/23/2024 03:55 PM 259 mg/dL N Blood chemistry[[id number]] Glucose [Mass/volume] in Serum or Plasma [2345-7] 03/23/2024 12:51 PM 122 mg/dL N Blood chemistry[[id number]] Glucose [Mass/volume] in Serum or Plasma [2345-7] 03/23/2024 10:49 AM 140 mg/dL N Blood chemistry[[id number]] Glucose [Mass/volume] in Serum or Plasma [2345-7] 03/22/2024 05:41 PM 155 mg/dL N Blood chemistry[[id number]] Glucose [Mass/volume] in Serum or Plasma [2345-7] 03/22/2024 01:32 PM 257 mg/dL N Blood chemistry[[id number]] Glucose [Mass/volume] in Serum or Plasma [2345-7] 03/22/2024 12:56 PM 130 mg/dL N Blood chemistry[[id number]] Glucose [Mass/volume] in Serum or Plasma [2345-7] 03/22/2024 09:37 AM 163 mg/dL N Blood chemistry[[id number]] Glucose [Mass/volume] in Serum or Plasma [2345-7] 03/21/2024 05:37 PM 224 mg/dL N Blood chemistry[[id number]] Glucose [Mass/volume] in Serum or Plasma [2345-7] 03/21/2024 04:50 PM 181 mg/dL N Blood chemistry[[id number]] Glucose [Mass/volume] in Serum or Plasma [2345-7] 03/21/2024 12:32 PM 135 mg/dL N Blood chemistry[[id number]] Glucose [Mass/volume] in Serum or Plasma [2345-7] 03/21/2024 12:28 PM 135 mg/dL N Blood chemistry[[id number]] Glucose [Mass/volume] in Serum or Plasma [2345-7] 03/21/2024 10:17 AM 171 mg/dL N Blood chemistry[[id number]] Glucose [Mass/volume] in Serum or Plasma [2345-7] 03/20/2024 05:00 PM 119 mg/dL N Blood chemistry[[id number]] Glucose [Mass/volume] in Serum or Plasma [2345-7] 03/20/2024 02:58 PM 157 mg/dL N Blood chemistry[[id number]] Glucose [Mass/volume] in Serum or Plasma [2345-7] 03/20/2024 11:16 AM 127 mg/dL N Blood chemistry[[id number]] Glucose [Mass/volume] in Serum or Plasma [2345-7] 03/19/2024 04:58 PM 196 mg/dL N Blood chemistry[[id number]] Glucose [Mass/volume] in Serum or Plasma [2345-7] 03/19/2024 03:09 PM 212 mg/dL N Blood chemistry[[id number]] Glucose [Mass/volume] in Serum or Plasma [2345-7] 03/19/2024 01:13 PM 122 mg/dL N Blood chemistry[[id number]] Glucose [Mass/volume] in Serum or Plasma [2345-7] 03/19/2024 10:18 AM 133 mg/dL N Blood chemistry[[id number]] Glucose [Mass/volume] in Serum or Plasma [2345-7] 03/18/2024 05:25 PM 200 mg/dL N Blood chemistry[[id number]] Glucose [Mass/volume] in Serum or Plasma [2345-7] 03/18/2024 02:31 PM 185 mg/dL N Blood chemistry[[id number]] Glucose [Mass/volume] in Serum or Plasma [2345-7] 03/18/2024 01:10 PM 121 mg/dL N Blood chemistry[[id number]] Glucose [Mass/volume] in Serum or Plasma [2345-7] 03/18/2024 10:02 AM 143 mg/dL N Blood chemistry[[id number]] Glucose [Mass/volume] in Serum or Plasma [2345-7] 03/17/2024 05:40 PM 188 mg/dL N Blood chemistry[[id number]] Glucose [Mass/volume] in Serum or Plasma [2345-7] 03/17/2024 01:08 PM 124 mg/dL N Blood chemistry[[id number]] Glucose [Mass/volume] in Serum or Plasma [2345-7] 03/17/2024 01:03 PM 201 mg/dL N Blood chemistry[[id number]] Glucose [Mass/volume] in Serum or Plasma [2345-7] 03/17/2024 10:24 AM 159 mg/dL N Blood chemistry[[id number]] Glucose [Mass/volume] in Serum or Plasma [2345-7] 03/16/2024 05:21 PM 222 mg/dL N Blood chemistry[[id number]] Glucose [Mass/volume] in Serum or Plasma [2345-7] 03/16/2024 03:07 PM 185 mg/dL N Blood chemistry[[id number]] Glucose [Mass/volume] in Serum or Plasma [2345-7] 03/16/2024 12:59 PM 129 mg/dL N Blood chemistry[[id number]] Glucose [Mass/volume] in Serum or Plasma [2345-7] 03/16/2024 09:27 AM 139 mg/dL N Blood chemistry[[id number]] Glucose [Mass/volume] in Serum or Plasma [2345-7] 03/15/2024 05:49 PM 138 mg/dL N Blood chemistry[[id number]] Glucose [Mass/volume] in Serum or Plasma [2345-7] 03/15/2024 02:41 PM 237 mg/dL N Blood chemistry[[id number]] Glucose [Mass/volume] in Serum or Plasma [2345-7] 03/15/2024 01:05 PM 128 mg/dL N Blood chemistry[[id number]] Glucose [Mass/volume] in Serum or Plasma [2345-7] 03/15/2024 11:26 AM 166 mg/dL N Blood chemistry[[id number]] Glucose [Mass/volume] in Serum or Plasma [2345-7] 03/14/2024 05:35 PM 184 mg/dL N Blood chemistry[[id number]] Glucose [Mass/volume] in Serum or Plasma [2345-7] 03/14/2024 05:27 PM 222 mg/dL N Blood chemistry[[id number]] Glucose [Mass/volume] in Serum or Plasma [2345-7] 03/14/2024 03:34 PM 147 mg/dL N Blood chemistry[[id number]] Glucose [Mass/volume] in Serum or Plasma [2345-7] 03/14/2024 02:02 PM 147 mg/dL N Blood chemistry[[id number]] Glucose [Mass/volume] in Serum or Plasma [2345-7] 03/14/2024 10:41 AM 300 mg/dL N Blood chemistry[[id number]] Glucose [Mass/volume] in Serum or Plasma [2345-7] 03/14/2024 08:38 AM 225 mg/dL N Blood chemistry[[id number]] Glucose [Mass/volume] in Serum or Plasma [2345-7] 03/13/2024 05:42 PM 229 mg/dL N Blood chemistry[[id number]] Glucose [Mass/volume] in Serum or Plasma [2345-7] 03/13/2024 01:34 PM 140 mg/dL N Blood chemistry[[id number]] Glucose [Mass/volume] in Serum or Plasma [2345-7] 03/13/2024 10:17 AM 144 mg/dL N Blood chemistry[[id number]] Glucose [Mass/volume] in Serum or Plasma [2345-7] 03/12/2024 05:21 PM 199 mg/dL N Blood chemistry[[id number]] Glucose [Mass/volume] in Serum or Plasma [2345-7] 03/12/2024 01:39 PM 173 mg/dL N Blood chemistry[[id number]] Glucose [Mass/volume] in Serum or Plasma [2345-7] 03/12/2024 01:10 PM 159 mg/dL N Blood chemistry[[id number]] Glucose [Mass/volume] in Serum or Plasma [2345-7] 03/12/2024 10:04 AM 129 mg/dL N Blood chemistry[[id number]] Glucose [Mass/volume] in Serum or Plasma [2345-7] 03/11/2024 04:51 PM 151 mg/dL N Blood chemistry[[id number]] Glucose [Mass/volume] in Serum or Plasma [2345-7] 03/11/2024 02:32 PM 241 mg/dL N Blood chemistry[[id number]] Glucose [Mass/volume] in Serum or Plasma [2345-7] 03/11/2024 01:26 PM 68 mg/dL N Blood chemistry[[id number]] Glucose [Mass/volume] in Serum or Plasma [2345-7] 03/11/2024 01:06 PM 68 mg/dL N Blood chemistry[[id number]] Glucose [Mass/volume] in Serum or Plasma [2345-7] 03/11/2024 09:57 AM 136 mg/dL N Blood chemistry[[id number]] Glucose [Mass/volume] in Serum or Plasma [2345-7] 03/10/2024 05:02 PM 170 mg/dL N Blood chemistry[[id number]] Glucose [Mass/volume] in Serum or Plasma [2345-7] 03/10/2024 03:05 PM 136 mg/dL N Blood chemistry[[id number]] Glucose [Mass/volume] in Serum or Plasma [2345-7] 03/10/2024 12:59 PM 166 mg/dL N Blood chemistry[[id number]] Glucose [Mass/volume] in Serum or Plasma [2345-7] 03/10/2024 10:44 AM 148 mg/dL N Blood chemistry[[id number]] Glucose [Mass/volume] in Serum or Plasma [2345-7] 03/10/2024 10:00 AM 304 mg/dL N Blood chemistry[[id number]] Glucose [Mass/volume] in Serum or Plasma [2345-7] 03/09/2024 05:23 PM 163 mg/dL N Blood chemistry[[id number]] Glucose [Mass/volume] in Serum or Plasma [2345-7] 03/09/2024 11:56 AM 118 mg/dL N Blood chemistry[[id number]] Glucose [Mass/volume] in Serum or Plasma [2345-7] 03/09/2024 11:46 AM 118 mg/dL N Blood chemistry[[id number]] Glucose [Mass/volume] in Serum or Plasma [2345-7] 03/09/2024 09:47 AM 145 mg/dL N Blood chemistry[[id number]] Glucose [Mass/volume] in Serum or Plasma [2345-7] 03/08/2024 05:11 PM 185 mg/dL N Blood chemistry[[id number]] Glucose [Mass/volume] in Serum or Plasma [2345-7] 03/08/2024 01:33 PM 218 mg/dL N Blood chemistry[[id number]] Glucose [Mass/volume] in Serum or Plasma [2345-7] 03/08/2024 01:00 PM 138 mg/dL N Blood chemistry[[id number]] Glucose [Mass/volume] in Serum or Plasma [2345-7] 03/08/2024 12:59 PM 138 mg/dL N Blood chemistry[[id number]] Glucose [Mass/volume] in Serum or Plasma [2345-7] 03/08/2024 10:12 AM 137 mg/dL N Blood chemistry[[id number]] Glucose [Mass/volume] in Serum or Plasma [2345-7] 03/07/2024 05:12 PM 201 mg/dL N Blood chemistry[[id number]] Glucose [Mass/volume] in Serum or Plasma [2345-7] 03/07/2024 02:17 PM 167 mg/dL N Blood chemistry[[id number]] Glucose [Mass/volume] in Serum or Plasma [2345-7] 03/07/2024 01:02 PM 121 mg/dL N Blood chemistry[[id number]] Glucose [Mass/volume] in Serum or Plasma [2345-7] 03/07/2024 10:14 AM 127 mg/dL N Blood chemistry[[id number]] Glucose [Mass/volume] in Serum or Plasma [2345-7] 03/07/2024 09:42 AM 191 mg/dL N Blood chemistry[[id number]] Glucose [Mass/volume] in Serum or Plasma [2345-7] 03/06/2024 04:39 PM 207 mg/dL N Blood chemistry[[id number]] Glucose [Mass/volume] in Serum or Plasma [2345-7] 03/06/2024 01:20 PM 143 mg/dL N Blood chemistry[[id number]] Glucose [Mass/volume] in Serum or Plasma [2345-7] 03/06/2024 09:25 AM 199 mg/dL N Blood chemistry[[id number]] Glucose [Mass/volume] in Serum or Plasma [2345-7] 03/05/2024 05:15 PM 220 mg/dL N Blood chemistry[[id number]] Glucose [Mass/volume] in Serum or Plasma [2345-7] 03/05/2024 02:34 PM 185 mg/dL N Blood chemistry[[id number]] Glucose [Mass/volume] in Serum or Plasma [2345-7] 03/05/2024 12:51 PM 103 mg/dL N Blood chemistry[[id number]] Glucose [Mass/volume] in Serum or Plasma [2345-7] 03/05/2024 10:13 AM 147 mg/dL N Blood chemistry[[id number]] Glucose [Mass/volume] in Serum or Plasma [2345-7] 03/04/2024 04:29 PM 178 mg/dL N Tuberculosis reaction wheal[ 39680-3] Tuberculosis reaction wheal [07561-7] 03/04/2024 02:34 PM 0 mm NEG Blood chemistry[[id number]] Glucose [Mass/volume] in Serum or Plasma [2345-7] 03/04/2024 01:41 PM 135 mg/dL N Blood chemistry[[id number]] Glucose [Mass/volume] in Serum or Plasma [2345-7] 03/04/2024 12:01 PM 109 mg/dL N Blood chemistry[[id number]] Glucose [Mass/volume] in Serum or Plasma [2345-7] 03/04/2024 09:29 AM 130 mg/dL N Blood chemistry[[id number]] Glucose [Mass/volume] in Serum or Plasma [2345-7] 03/03/2024 04:35 PM 168 mg/dL N Blood chemistry[[id number]] Glucose [Mass/volume] in Serum or Plasma [2345-7] 03/03/2024 01:24 PM 143 mg/dL N Blood chemistry[[id number]] Glucose [Mass/volume] in Serum or Plasma [2345-7] 03/03/2024 11:59 AM 107 mg/dL N Blood chemistry[[id number]] Glucose [Mass/volume] in Serum or Plasma [2345-7] 03/03/2024 10:02 AM 112 mg/dL N Blood chemistry[[id number]] Glucose [Mass/volume] in Serum or Plasma [2345-7] 03/02/2024 02:46 PM 185 mg/dL N Blood chemistry[[id number]] Glucose [Mass/volume] in Serum or Plasma [2345-7] 03/02/2024 12:30 PM 125 mg/dL N Blood chemistry[[id number]] Glucose [Mass/volume] in Serum or Plasma [2345-7] 03/02/2024 08:08 AM 191 mg/dL N Blood chemistry[[id number]] Glucose [Mass/volume] in Serum or Plasma [2345-7] 03/01/2024 04:39 PM 183 mg/dL N Blood chemistry[[id number]] Glucose [Mass/volume] in Serum or Plasma [2345-7] 03/01/2024 01:35 PM 151 mg/dL N Blood chemistry[[id number]] Glucose [Mass/volume] in Serum or Plasma [2345-7] 03/01/2024 12:59 PM 122 mg/dL N Blood chemistry[[id number]] Glucose [Mass/volume] in Serum or Plasma [2345-7] 03/01/2024 09:27 AM 106 mg/dL N Blood chemistry[[id number]] Glucose [Mass/volume] in Serum or Plasma [2345-7] 02/29/2024 04:43 PM 200 mg/dL N Blood chemistry[[id number]] Glucose [Mass/volume] in Serum or Plasma [2345-7] 02/29/2024 12:59 PM 177 mg/dL N Blood chemistry[[id number]] Glucose [Mass/volume] in Serum or Plasma [2345-7] 02/29/2024 11:59 AM 133 mg/dL N Blood chemistry[[id number]] Glucose [Mass/volume] in Serum or Plasma [2345-7] 02/29/2024 10:10 AM 255 mg/dL N Blood chemistry[[id number]] Glucose [Mass/volume] in Serum or Plasma [2345-7] 02/28/2024 03:54 PM 260 mg/dL N Blood chemistry[[id number]] Glucose [Mass/volume] in Serum or Plasma [2345-7] 02/28/2024 03:18 PM 189 mg/dL N Blood chemistry[[id number]] Glucose [Mass/volume] in Serum or Plasma [2345-7] 02/28/2024 01:44 PM 122 mg/dL N Blood chemistry[[id number]] Glucose [Mass/volume] in Serum or Plasma [2345-7] 02/28/2024 09:04 AM 216 mg/dL N Blood chemistry[[id number]] Glucose [Mass/volume] in Serum or Plasma [2345-7] 02/27/2024 04:21 PM 150 mg/dL N Blood chemistry[[id number]] Glucose [Mass/volume] in Serum or Plasma [2345-7] 02/27/2024 03:57 PM 168 mg/dL N Blood chemistry[[id number]] Glucose [Mass/volume] in Serum or Plasma [2345-7] 02/27/2024 12:44 PM 130 mg/dL N Blood chemistry[[id number]] Glucose [Mass/volume] in Serum or Plasma [2345-7] 02/27/2024 09:00 AM 120 mg/dL N Blood chemistry[[id number]] Glucose [Mass/volume] in Serum or Plasma [2345-7] 02/26/2024 04:41 PM 150 mg/dL N Blood chemistry[[id number]] Glucose [Mass/volume] in Serum or Plasma [2345-7] 02/26/2024 03:34 PM 212 mg/dL N Blood chemistry[[id number]] Glucose [Mass/volume] in Serum or Plasma [2345-7] 02/26/2024 11:57 AM 165 mg/dL N Blood chemistry[[id number]] Glucose [Mass/volume] in Serum or Plasma [2345-7] 02/26/2024 09:38 AM 135 mg/dL N Blood chemistry[[id number]] Glucose [Mass/volume] in Serum or Plasma [2345-7] 02/26/2024 06:25 AM 141 mg/dL N Tuberculosis reaction wheal[ 02648-8] Tuberculosis reaction wheal [07733-5] 02/25/2024 04:13 PM 0 mm NEG Blood chemistry[[id number]] Glucose [Mass/volume] in Serum or Plasma [2345-7] 02/25/2024 04:09 PM 107 mg/dL N Blood chemistry[[id number]] Glucose [Mass/volume] in Serum or Plasma [2345-7] 02/25/2024 12:28 PM 113 mg/dL N Blood chemistry[[id number]] Glucose [Mass/volume] in Serum or Plasma [2345-7] 02/25/2024 09:17 AM 228 mg/dL N COVID-19 Test Viral Antigen null flavor [null] 02/24/2024 04:00 PM See note NEG COVID-19 Test Viral Antigen Blood chemistry[[id number]] Glucose [Mass/volume] in Serum or Plasma [2345-7] [...] Vaccine Unassigned Route of Administration 2024 Completed Influenza Vaccine Unassigned Route of Administration 1 Completed COVID-19 Vaccine Unassigned Route of Administration Completed Medications Medication Instructions Route Dosage Frequency Start Date Stop Date Indications Status acetaminophen 500 mg tablet (acetaminophen ) 1, oral, Every 6 Hours - PRN, Clinical indication: Fever/Pain oral 1.0 6.0 h 02/11 Active allopurinol 300 mg tablet (allopurinol) 1, oral, Once A Day, DX: gout oral 1.0 1.0 d 02/11 Gout, unspecified Active amiodarone 200 mg tablet (amiodarone) 1, oral, Once A Day oral 1.0 1.0 d 02/11 Active amitriptyline 25 mg tablet (amitriptyline ) 1 tab, oral, At Bedtime, Give 1 tab po at HS x 2 weeks then DC oral 1.0 04/24 Active atorvastatin 20 mg tablet (atorvastatin) 1, oral, Once A Day oral 1.0 1.0 d 02/11 Active Biofreeze (menthol) (menthol) 4 % gel (Biofreeze (menthol) (menthol)) as directed, topical, Every 4 Hours - PRN, Apply to affected area every 4 hours as needed for pain topical 1.0 4.0 h 05/17 Active Breztri Aerosphere (budesonide-gl ycopyr-formote rol) 160-9-4.8 mcg/actuation HFA aerosol inhaler (Breztri Aerosphere (budesonide-gl ycopyr-formote rol)) 2 puffs, inhalation, Twice A Day inhalati on 1.0 12.0 h 02/11 Chronic obstructive pulmonary disease, unspecified Active carboxymethylc ellulose sodium 0.5 % dropperette (carboxymethyl cellulose sodium) 1 gtt each eye, ophthalmic (eye), Once A Day - PRN, Clinical indication: dry eyes 1.0 1.0 d 05/18 Active Cardizem LA (diltiazem hcl) 360 mg tablet extended release 24 hr (Cardizem LA (diltiazem hcl)) 1, oral, Once A Day oral 1.0 1.0 d 06/05 Active cholecalcifero l (vitamin D3) 25 mcg (1,000 unit) capsule (cholecalcifer ol (vitamin D3)) 1, oral, Once A Day oral 1.0 1.0 d 02/11 Active Clear Eyes Natural Tears (polyvinyl alcohol-povido ne) 0.5-0.6 % drops (Clear Eyes Natural Tears (polyvinyl alcohol-povido ne)) 2 gtts bilate eyes, ophthalmic (eye), Twice [...] results from MOM oral 1.0 1.0 d 02/11 Active Dulcolax (bisacodyl) (bisacodyl) 10 mg suppository (Dulcolax (bisacodyl) (bisacodyl)) 1 suppository, rectal, Once A Day - PRN, Give rectally if can't take p/o, if no results from MOM rectal 1.0 1.0 d 02/11 Active Eliquis (apixaban) 5 mg tablet (Eliquis (apixaban)) 1, oral, Twice A Day oral 1.0 12.0 h 2023 Active esomeprazole magnesium 40 mg capsule,delaye d release(DR/EC) (esomeprazole magnesium) 1, oral, Twice A Day oral 1.0 12.0 h 02/11 Active ferrous sulfate 325 mg (65 mg [...] Flonase Allergy Relief (fluticasone propionate) 50 mcg/actuation spray,suspensi on (Flonase Allergy Relief (fluticasone propionate)) 1 SPRAY, nasal, Twice A Day, 1 SPRAY BOTH NOSTRILS bid nasal 1.0 12.0 h 02/11 Active ipratropium-al buterol 0.5 mg-3 mg(2.5 mg base)/3 mL solution for nebulization (ipratropium-a lbuterol) 1 inh, inhalation, Every 6 Hours - PRN, Clinical indication: SOB inhalati on 1.0 6.0 h 2023 Active latanoprost 0.005 % drops (latanoprost) 1 gtt both eyes, ophthalmic (eye), At Bedtime 1.0 05/18 Active Lidoderm (lidocaine) 5 % adhesive patch,medicate d (Lidoderm (lidocaine)) as directed, topical, Twice A Day, Apply to lower back in am and remove in hs topical 1.0 12.0 h 02/11 Active MediHoney (honey) (honey) 80 % gel (MediHoney (honey) (honey)) as directed, topical, Every Shift, Rt inner ankle: Cleanse with ns and gauze, apply medi-honey to open area only, then skin prep to intact skin q shift and cover with bordered foam topical 1.0 8.0 h 05/02 Active metoclopramide HCl 10 mg tablet (metoclopramid e HCl) 1, oral, Four Times A Day oral 1.0 6.0 h 02/11 Active metoprolol tartrate 100 mg tablet (metoprolol [...] (montelukast) 1, oral, At Bedtime oral 1.0 02/11 Chronic obstructive pulmonary disease, unspecified Active Myrbetriq [...] is greater than 350, give 7 Units. subcutan eous 1.0 05/08 Active nystatin 100,000 unit/gram cream [...] 1.0 8.0 h 05/08 Active Senior Tabs (multivit-min- si-gmytilb-qlt ein) 0.4 mg-300 mcg- 250 mcg tablet (Senior Tabs (multivit-min- on-leafitn-lmy ein)) 1, oral, Once A Day oral 1.0 1.0 d 02/11 Active senna 8.6 mg tablet (senna) 1, oral, Twice A Day oral 1.0 12.0 h 02/11 Active Simbrinza (brinzolamide- brimonidine) 1-0.2 % drops,suspensi on (Simbrinza (brinzolamide- brimonidine)) 1gtt both eyes, ophthalmic (eye), Twice A Day, glacoma 1.0 12.0 h 05/18 Active spironolactone 25 mg tablet (spironolacton e) 1/2 tab, oral, Once A Day, chf oral 1.0 1.0 d 02/08 Active tamsulosin 0.4 mg capsule (tamsulosin) 1, oral, Twice A Day oral 1.0 12.0 h 02/11 Active testosterone cypionate 200 mg/mL oil (testosterone cypionate) 200mg, intramuscular, Once A Day Every 14 Days intramus cular 1.0 1.0 d 2023 Active tizanidine 4 mg capsule (tizanidine) 1, oral, Every 8 Hours - PRN, Clinical indication: Muscle Spasms oral 1.0 8.0 h 08/14 Active Tresiba FlexTouch U-100 (insulin degludec) 100 unit/mL (3 mL) insulin pen (Tresiba FlexTouch U-100 (insulin degludec)) 62 units, subcutaneous, Once A Day subcutan eous 1.0 1.0 d 05/08 Active Tylenol (acetaminophen ) 325 mg tablet (Tylenol (acetaminophen )) 2 tabs/650mg, oral, Every 6 Hours - PRN, as needed for PRN pain/increased tempMay give rectally if necessary oral 1.0 6.0 h 05/02 Active Zyrtec (cetirizine) 10 mg tablet (Zyrtec (cetirizine)) 1, oral, Once A Day - PRN, Clinical indication: Allergies oral 1.0 1.0 d 2023 Active amitriptyline 50 mg tablet (amitriptyline ) 1, oral, At Bedtime oral 1.0 04/11 Active hydrocodone-ac etaminophen 5-325 mg tablet (hydrocodone-a cetaminophen) 1, oral, Three Times A Day - PRN oral 1.0 8.0 h 04/11 Active Incruse Ellipta (umeclidinium) 62.5 mcg/actuation blister with device (Incruse Ellipta (umeclidinium) ) 1 puff, inhalation, Once A Day inhalati on 1.0 1.0 d 04/04 Active MediHoney (honey) [...] dry eyes 1.0 12.0 h 05/18 Active hydrocodone-ac etaminophen 5-325 mg tablet (hydrocodone-a cetaminophen) 1 tab, oral, At Bedtime - PRN, clinical indication : pain oral 1.0 08/14 Active Novolog FlexPen U-100 Insulin (insulin aspart u-100) 100 unit/mL (3 mL) insulin pen (Novolog FlexPen U-100 Insulin (insulin aspart u-100)) 10 units, subcutaneous, With Meals subcutan eous 1.0 07/18 Active Tresiba FlexTouch U-100 (insulin degludec) 100 unit/mL (3 mL) insulin pen (Tresiba FlexTouch U-100 (insulin degludec)) 70 units, subcutaneous, Once A Day subcutan eous 1.0 1.0 d 06/15 Active pregabalin 50 mg capsule (pregabalin) 50mg, oral, Three Times A Day oral 1.0 8.0 h 12/12 Active Macrobid (nitrofurantoi n monohyd/m-fiordaliza t) 100 mg capsule (Macrobid (nitrofurantoi n monohyd/m-fiordaliza t)) 1, oral, Twice A Day, Macrobid 100mg PO BID X 7 days for UTI oral 1.0 12.0 h 05/20 Active Macrobid (nitrofurantoi n monohyd/m-fiordaliza t) 100 mg capsule (Macrobid (nitrofurantoi n monohyd/m-fiordaliza t)) 1, oral, Twice A Day, Macrobid 100mg PO BID X 7 days for UTI oral 1.0 12.0 h 05/14 Active TobraDex (tobramycin-de xamethasone) 0.3-0.1 % ointment (TobraDex (tobramycin-de xamethasone)) As directed, ophthalmic (eye), Three Times A Day, Apply to right eye three times daily 1.0 8.0 h 05/27 Active levofloxacin 750 mg tablet (levofloxacin) 1, oral, Once A Day oral 1.0 1.0 d 07/07 Active TobraDex (tobramycin-de xamethasone) 0.3-0.1 % ointment (TobraDex (tobramycin-de xamethasone)) as directed, ophthalmic (eye), Three Times A [...] Insulin (insulin glargine)) 70units, subcutaneous, At Bedtime subcutan eous 1.0 08/09 Active potassium chloride 10 mEq [...] d 06/25 Active Ocusoft Eyelid Cleansing Pads ([employer] supply) - pad (Ocusoft Eyelid Cleansing Pads ([employer] supply)) 2, miscellaneous, Once A Morning, use one pad per eye and clean each eye lid every am 1.0 02/11 Active Systane (propylene glycol) (peg 400-propylene glycol) 0.4-0.3 % drops (Systane (propylene glycol) (peg 400-propylene glycol)) as directed, ophthalmic (eye), Every 3 Hours, apply every 3 hours to each eye while awake 1.0 3.0 h 06/23 Active TobraDex (tobramycin-de xamethasone) 0.3-0.1 % ointment (TobraDex (tobramycin-de xamethasone)) as directed, ophthalmic (eye), At Bedtime, apply [...] aspart U-100) 10 units, subcutaneous, With Meals subcutan eous 1.0 08/07 Active levofloxacin 750 mg tablet (levofloxacin) 1, oral, Once A Day oral 1.0 1.0 d 07/31 Active ceftriaxone 1 gram recon soln (ceftriaxone) 1, injection, Once A Day 1.0 1.0 d 08/03 Active Admelog SoloStar U-100 Insulin (insulin lispro) 100 unit/mL insulin pen (Admelog SoloStar U-100 Insulin (insulin lispro)) 10 units, subcutaneous, With Meals subcutan eous 1.0 08/09 Active Admelog SoloStar U-100 Insulin (insulin lispro) 100 unit/mL insulin pen (Admelog SoloStar U-100 Insulin (insulin lispro)) 15 units, subcutaneous, With Meals subcutan eous 1.0 2024 Active insulin glargine-yfgn 100 unit/mL (3 mL) insulin pen (insulin glargine-yfgn) 80 units, subcutaneous, At Bedtime subcutan eous 1.0 2024 Active insulin glargine-yfgn 100 unit/mL solution (insulin glargine-yfgn) 80, subcutaneous, At Bedtime subcutan eous 1.0 08/09 Active hydrocodone-ac etaminophen 5-325 mg tablet (hydrocodone-a cetaminophen) 1 tab, oral, Twice A Day - PRN, clinical indication : pain oral 1.0 12.0 h 12/07 Active Macrobid (nitrofurantoi n monohyd/m-fiordaliza t) 100 mg capsule (Macrobid (nitrofurantoi n monohyd/m-fiordaliza t)) 1, oral, Twice A Day oral 1.0 12.0 h 08/29 Active ertapenem 1 gram recon soln (ertapenem) 1 gram, injection, At Bedtime, clinical indication: UTI 1.0 09/04 Active Artificial Tears (PF) (dextran 70-hypromellos e (pf)) 0.1-0.3 % dropperette (Artificial Tears (PF) (dextran 70-hypromellos e (pf))) apply both eyes, ophthalmic (eye), Every 2 Hours - PRN, May apply to each eye as needed for irritation 1.0 2.0 h 02/11 Active brimonidine 0.2 % drops (brimonidine) 1 gtt each eye, ophthalmic (eye), Twice A Day 1.0 12.0 h 02/11 Active brinzolamide 1 % drops,suspensi on (brinzolamide) 1 gtt each eye, ophthalmic (eye), Twice A Day 1.0 12.0 h 02/11 Active diclofenac sodium 1 % gel (diclofenac sodium) 2grams, topical, Three Times A Day - PRN, Apply 2grams to Lt shoulder TID PRN pain topical 1.0 8.0 h 2024 Active doxycycline hyclate 100 mg tablet (doxycycline hyclate) 1, oral, Twice A Day oral 1.0 12.0 h 01/10 Active hydrocodone-ac etaminophen 5-325 mg tablet (hydrocodone-a cetaminophen) 1 tab, oral, Three Times A Day - PRN, clinical indication : pain oral 1.0 8.0 h 01/09 Active insulin aspart U-100 100 unit/mL (3 mL) insulin pen (insulin aspart U-100) 40 units, subcutaneous, With Meals subcutan eous 1.0 01/11 Active insulin glargine-yfgn 100 unit/mL (3 mL) insulin pen (insulin glargine-yfgn) 130 units, subcutaneous, At Bedtime subcutan eous 1.0 01/11 Active latanoprost 0.005 % drops (latanoprost) 1 gtts Both eyes, ophthalmic (eye), At Bedtime 1.0 02/11 Active metoprolol tartrate 100 mg tablet (metoprolol tartrate) 1, oral, Twice A Day oral 1.0 12.0 h 02/11 Active Miralax (polyethylene glycol 3350) 17 gram/dose powder (Miralax (polyethylene glycol 3350)) 17 gram, oral, Once A Day, administer in 8 oz of juice or water oral 1.0 1.0 d 02/22 Active pregabalin 50 mg capsule (pregabalin) 50mg, oral, Three Times A Day oral 1.0 8.0 h 01/09 Active Systane Nighttime (white petrolatum-min eral oil) 94-3 % ointment (Systane Nighttime (white petrolatum-min eral oil)) apply to both eyes, ophthalmic (eye), At Bedtime, Apply ointment to each eye prior to applying cpap mask 1.0 02/11 Active Arexvy (PF) (rsvpref3 antigen-as01e (pf)) 120 mcg/0.5 mL suspension for reconstitution (Arexvy (PF) (rsvpref3 antigen-as01e (pf))) 0.5ml, intramuscular, Once - One Time intramus cular 1.0 12/19 Active Debrox (carbamide peroxide) 6.5 [...] 1mg, subcutaneous, Once A Day on Wed subcutan eous 1.0 1.0 d 12/18 Active Eliquis (apixaban) 5 mg tablet (Eliquis (apixaban)) 1, oral, Twice A Day oral 1.0 12.0 h 01/17 Active hydrocodone-ac etaminophen 5-325 mg tablet (hydrocodone-a cetaminophen) 1 tab, oral, Three Times A Day - PRN, clinical indication : pain oral 1.0 8.0 h 01/09 Active pregabalin 50 mg capsule (pregabalin) 50mg, oral, Three Times A Day oral 1.0 8.0 h 02/07 Active triamcinolone acetonide 0.1 % cream (triamcinolone acetonide) apply to both ears, topical, Twice A Day - PRN, Clinical indication: Itching topical 1.0 12.0 h 02/11 Active albuterol sulfate 2.5 mg /3 mL (0.083 %) solution for nebulization (albuterol sulfate) 1inh, inhalation, Every 6 Hours - PRN, Clinical indication: dyspnea inhalati on 1.0 6.0 h 02/11 Active insulin aspart U-100 100 unit/mL (3 mL) insulin pen (insulin aspart U-100) 45 units, subcutaneous, With Meals subcutan eous 1.0 01/22 Active insulin glargine-yfgn 100 unit/mL (3 mL) insulin pen (insulin glargine-yfgn) 140 units, subcutaneous, At Bedtime subcutan eous 1.0 01/15 Active Ozempic (semaglutide) 0.25 mg or 0.5 mg (2 mg/3 mL) pen injector (Ozempic (semaglutide)) 0.5mg, subcutaneous, Once A Day on Mon subcutan eous 1.0 1.0 d 02/06 Active albuterol sulfate 2.5 mg /3 mL (0.083 %) solution for nebulization (albuterol sulfate) 1, inhalation, Every 6 Hours inhalati on 1.0 6.0 h 01/15 Active azithromycin 250 [...] (insulin glargine)) 140 units, subcutaneous, At Bedtime subcutan eous 1.0 01/22 Active Eliquis (apixaban) 5 mg tablet (Eliquis (apixaban)) 1, oral, Twice A Day oral 1.0 12.0 h 02/03 Active oxybutynin chloride 5 mg tablet (oxybutynin chloride) 1, oral, Once A Day oral 1.0 1.0 d 02/11 Active methylpredniso lone 4 mg tablets,dose pack (methylprednis olone) per rx instructions, oral, Other, methylprednisone (medrol IAN)# 21 tabs 4 mg for 6 days per rx instructions oral 1.0 01/30 Active insulin aspart U-100 100 unit/mL (3 mL) insulin pen (insulin aspart U-100) 50 units, subcutaneous, With Meals subcutan eous 1.0 02/08 Active Lasix (furosemide) 40 mg tablet (Lasix (furosemide)) 1, oral, Twice A Day oral 1.0 12.0 h 02/08 Active Tresiba FlexTouch U-100 (insulin degludec) 100 unit/mL (3 mL) insulin pen (Tresiba FlexTouch U-100 (insulin degludec)) 150 unit, subcutaneous, At Bedtime subcutan eous 1.0 02/08 Active prednisone 20 mg tablet (prednisone) 1 tab, oral, Once A Day oral 1.0 1.0 d 02/09 Active metolazone 5 mg tablet (metolazone) 1 tab, oral, Once - One Time oral 1.0 02/05 Active prednisone 20 mg tablet (prednisone) 1 tab, oral, Once A Day oral 1.0 1.0 d 02/05 Active moxifloxacin 400 mg tablet (moxifloxacin) 1 tab, oral, Once A Day oral 1.0 1.0 d 02/12 Active Eliquis (apixaban) 5 mg tablet (Eliquis (apixaban)) 1, oral, Twice A Day oral 1.0 12.0 h 02/05 Active hydrocodone-ac etaminophen 5-325 mg tablet (hydrocodone-a cetaminophen) 1 tab, oral, Three Times A Day - PRN, clinical indication : pain oral 1.0 8.0 h 02/11 Active pregabalin 50 mg capsule (pregabalin) 50mg, oral, Three Times A Day oral 1.0 8.0 h 02/11 Active hydrocodone-ac etaminophen 5-325 mg tablet (hydrocodone-a cetaminophen) 1 tab, oral, Three Times A Day - PRN, clinical indication : pain oral 1.0 8.0 h 02/07 Active insulin aspart U-100 100 unit/mL (3 mL) insulin pen (insulin aspart U-100) 60 units, subcutaneous, With Meals subcutan eous 1.0 02/11 Active insulin degludec 100 unit/mL (3 mL) insulin pen (insulin degludec) 150 units, subcutaneous, At Bedtime subcutan eous 1.0 02/11 Active Lasix (furosemide) 80 mg tablet (Lasix (furosemide)) 1, oral, Twice A Day oral 1.0 12.0 h 02/11 Active spironolactone 25 mg tablet (spironolacton e) 1, oral, Once A Day oral 1.0 1.0 d 02/19 Active Eliquis (apixaban) 5 mg tablet (Eliquis (apixaban)) 1, oral, Twice A Day oral 1.0 12.0 h 02/06 Active acetaminophen 500 mg tablet (acetaminophen ) 1, oral, Every 6 Hours - PRN, Clinical indication: Fever/Pain oral 1.0 6.0 h 2024 Active albuterol sulfate 2.5 mg /3 mL (0.083 %) solution for nebulization (albuterol sulfate) 1inh, inhalation, Every 6 Hours - PRN, Clinical indication: dyspnea inhalati on 1.0 6.0 h 2024 Active allopurinol 300 mg tablet (allopurinol) 1, oral, Once A Day, DX: gout oral 1.0 1.0 d 2024 Gout, unspecified Active amiodarone 200 mg tablet (amiodarone) 2, oral, Once A Day oral 1.0 1.0 d 02/12 Active Artificial Tears (PF) (dextran 70-hypromellos e (pf)) 0.1-0.3 % dropperette (Artificial Tears (PF) (dextran 70-hypromellos e (pf))) apply both eyes, ophthalmic (eye), Every 2 Hours - PRN, May apply to each eye as needed for irritation 1.0 2.0 h 2024 Active atorvastatin 20 mg tablet (atorvastatin) 1, oral, Once A Day oral 1.0 1.0 d 2024 Active Breztri Aerosphere (budesonide-gl ycopyr-formote rol) 160-9-4.8 mcg/actuation HFA aerosol inhaler (Breztri Aerosphere (budesonide-gl ycopyr-formote rol)) 2 puffs, inhalation, Twice A Day inhalati on 1.0 12.0 h 2024 Active brimonidine 0.2 % drops (brimonidine) 1 gtt each eye, ophthalmic (eye), Twice A Day 1.0 12.0 h 2024 Active brinzolamide 1 % drops,suspensi on (brinzolamide) 1 gtt each eye, ophthalmic (eye), Twice A Day 1.0 12.0 h 2024 Active cholecalcifero l (vitamin D3) 25 mcg (1,000 unit) capsule (cholecalcifer ol (vitamin D3)) 1, oral, Once A Day oral 1.0 1.0 d 2024 Active diltiazem HCl 180 mg capsule,ext.re l 24h degradable (diltiazem HCl) 1, oral, Once A Day oral 1.0 1.0 d 2024 Active Eliquis (apixaban) 5 mg tablet (Eliquis (apixaban)) 1, oral, Twice A Day oral 1.0 12.0 h 03/02 Active esomeprazole magnesium 40 mg capsule,delaye d release(DR/EC) (esomeprazole magnesium) 1, oral, Twice A Day oral 1.0 12.0 h 2024 Active Flonase Allergy Relief (fluticasone propionate) 50 mcg/actuation spray,suspensi on (Flonase Allergy Relief (fluticasone propionate)) 1 SPRAY, nasal, Twice A Day, 1 SPRAY BOTH NOSTRILS bid nasal 1.0 12.0 h 2024 Active hydrocodone-ac etaminophen 5-325 mg tablet (hydrocodone-a cetaminophen) 1 tab, oral, Three Times A Day - PRN, clinical indication : pain oral 1.0 8.0 h 02/20 Active insulin aspart U-100 100 unit/mL (3 mL) insulin pen (insulin aspart U-100) 20 units, subcutaneous, With Meals subcutan eous 1.0 02/26 Active insulin degludec 100 unit/mL (3 mL) insulin pen (insulin degludec) 80 units, subcutaneous, At Bedtime subcutan eous 1.0 02/26 Active latanoprost 0.005 % drops (latanoprost) 1 gtts Both eyes, ophthalmic (eye), At Bedtime 1.0 2024 Active Lidoderm (lidocaine) 5 % adhesive patch,medicate d (Lidoderm (lidocaine)) as directed, topical, Twice A Day, Apply to lower back in am and remove in hs topical 1.0 12.0 h 2024 Active metoclopramide HCl 10 mg tablet (metoclopramid e HCl) 1, oral, Four Times A Day oral 1.0 6.0 h 2024 Active metoprolol tartrate 100 mg tablet (metoprolol tartrate) 1, oral, Twice A Day oral 1.0 12.0 h 2024 Active montelukast 10 mg tablet (montelukast) 1, oral, At Bedtime oral 1.0 2024 Active Ocusoft Eyelid Cleansing Pads (Everyday.mecellaneous medical supply) - pad (O[employer]oft Eyelid Cleansing Pads (Everyday.mecellaneous medical supply)) 2, miscellaneous, Once A Morning, use one pad per eye and clean each eye lid every am 1.0 2024 Active Ozempic (semaglutide) 1 mg/dose (4 mg/3 mL) pen injector (Ozempic (semaglutide)) 1mg, subcutaneous, Once A Day on Mon subcutan eous 1.0 1.0 d 2024 Active pregabalin 50 mg capsule (pregabalin) 50mg, oral, Three Times A Day oral 1.0 8.0 h 02/20 Active Senior Tabs (multivit-min- ok-oijfnyz-ghw ein) 0.4 mg-300 mcg- 250 mcg tablet (Senior Tabs (multivit-min- zs-secmgiy-fsw ein)) 1, oral, Once A Day oral 1.0 1.0 d 2024 Active Systane Nighttime (white petrolatum-min eral oil) 94-3 % ointment (Systane Nighttime (white petrolatum-min eral oil)) apply to both eyes, ophthalmic (eye), At Bedtime, Apply ointment to each eye prior to applying cpap mask 1.0 2024 Active tamsulosin 0.4 mg capsule (tamsulosin) 1, oral, Twice A Day oral 1.0 12.0 h 2024 Active triamcinolone acetonide 0.1 % cream (triamcinolone acetonide) apply to both ears, topical, Twice A Day - PRN, Clinical indication: Itching topical 1.0 12.0 h 2024 Active Eliquis (apixaban) 5 mg tablet (Eliquis (apixaban)) 1, oral, Twice A Day oral 1.0 12.0 h 02/11 Active moxifloxacin 400 mg tablet (moxifloxacin) 1 tab, oral, Once A Day oral 1.0 1.0 d 02/11 Active amiodarone 400 mg tablet (amiodarone) 1 tab, oral, Once A Day oral 1.0 1.0 d 2024 Active Ozempic (semaglutide) 1 mg/dose (4 mg/3 mL) pen injector (Ozempic (semaglutide)) 1mg, subcutaneous, Once A Day on Mon subcutan eous 1.0 1.0 d 02/11 Active Dulcolax (bisacodyl) (bisacodyl) 5 mg tablet,delayed release (DR/EC) (Dulcolax (bisacodyl) (bisacodyl)) 2 tabs/10mg, oral, Once A Day - PRN, Give if no results from MOM oral 1.0 1.0 d 2024 Active Lasix (furosemide) 80 mg tablet (Lasix (furosemide)) 1, oral, Twice A Day oral 1.0 12.0 h 02/14 Active senna 8.6 mg tablet (senna) 1, oral, Twice A Day oral 1.0 12.0 h 02/22 Active Afluria 6270-7987 (3yr up)(PF) (flu vac [id number] 36mos up(pf)) 45 mcg (15 mcg x 3)/0.5 m syringe (Afluria (3yr up)(PF) (flu vac [id number] 36mos up(pf))) 0.5ml, intramuscular, Once - One Time intramus cular 1.0 02/13 Active Afluria (3yr up)(PF) (flu vac [id number] 36mos up(pf)) 45 mcg (15 mcg x 3)/0.5 m syringe (Afluria (3yr up)(PF) (flu vac [id number] 36mos up(pf))) 0.5ml, intramuscular, Once - One Time intramus cular 1.0 02/13 Active Lasix (furosemide) 80 mg tablet (Lasix (furosemide)) 1, oral, Twice A Day oral 1.0 12.0 h 02/19 Active Lasix (furosemide) 20 mg tablet (Lasix (furosemide)) 1, oral, Twice A Day, give 20mg Lasix BID with 80 mg Lasix BID to make 100mg Lasix oral 1.0 12.0 h 02/19 Active linezolid 600 mg tablet (linezolid) 1, oral, Twice A Day oral 1.0 12.0 h 02/23 Active Lasix (furosemide) 80 mg tablet (Lasix (furosemide)) 1, oral, Twice A Day oral 1.0 12.0 h 02/14 Active Aldactone (spironolacton e) 50 mg tablet (Aldactone (spironolacton e)) 1 tab, oral, Once A Day oral 1.0 1.0 d 2024 Active bumetanide 2 mg tablet (bumetanide) 1 tab, oral, Twice A Day oral 1.0 12.0 h 02/21 Active metolazone 5 mg tablet (metolazone) 1 tab, oral, Once A Day oral 1.0 1.0 d 02/22 Active hydrocodone-ac etaminophen 5-325 mg tablet (hydrocodone-a cetaminophen) 1 tab, oral, Three Times A Day - PRN, clinical indication : pain oral 1.0 8.0 h 2024 Active pregabalin 50 mg capsule (pregabalin) 50mg, oral, Three Times A Day oral 1.0 8.0 h 2024 Active bumetanide 1 mg tablet (bumetanide) 1, oral, Three Times A Day oral 1.0 8.0 h 2024 Active bumetanide 2 mg tablet (bumetanide) 1 tab, oral, Three Times A Day oral 1.0 8.0 h 2024 Active Linzess (linaclotide) 290 mcg capsule (Linzess (linaclotide)) 1, oral, Once A Day oral 1.0 1.0 d 03/05 Active nystatin 100,000 unit/gram cream (nystatin) 1, topical, Four Times A Day, Wash affected red areas and apply nystatin powder. topical 1.0 6.0 h 03/08 Active insulin aspart U-100 100 unit/mL (3 mL) insulin pen (insulin aspart U-100) 30 units, subcutaneous, With Meals subcutan eous 1.0 2024 Active insulin degludec 100 unit/mL (3 mL) insulin pen (insulin degludec) 90 units, subcutaneous, At Bedtime subcutan eous 1.0 2024 Active potassium chloride 20 mEq tablet extended release (potassium chloride) 2, oral, Once A Day oral 1.0 1.0 d 03/01 Active potassium chloride 20 mEq tablet extended release (potassium chloride) 1, oral, Once A Day oral 1.0 1.0 d 2024 Active Linzess (linaclotide) 72 mcg capsule (Linzess (linaclotide)) 1 capsule, oral, Once A Day oral 1.0 1.0 d 2024 Active ondansetron 8 mg tablet,disinte grating (ondansetron) 1, oral, Every 6 Hours - PRN, Take one tablet for nausea and vomiting oral 1.0 6.0 h 2024 Active Gold Castillo Medicated Body (menthol) 0.8 % powder (Gold Castillo Medicated Body (menthol)) as directed, topical, Every Shift, Cleanse abdominal folds ensuring completely dry then apply to entire abdominal folds and under arm q shift topical 1.0 8.0 h 2024 Active potassium chloride 20 mEq tablet extended release (potassium chloride) 2 tab= 40 meq, oral, Four Times A Day, 2 tab= 40 meq q 4 hours x 4 doses oral 1.0 6.0 h 03/08 Active Vital Signs Date Vital Result Comment 04/11/2024 10:12 PM Oxygen Saturation (77417-5) 93 % 04/11/2024 08:25 AM Temperature (8310-5) 97.3 [degF] Respiratory Rate (9279-1) 19 /min Heart Rate (8867-4) 95 /min Blood Pressure Systolic (8480-6) 127 mm[Hg] Blood Pressure Diastolic (8462-4) 60 mm[Hg] 04/11/2024 08:10 AM Oxygen Saturation (90906-2) 96 % 04/10/2024 07:19 PM Oxygen Saturation (79417-7) 94 % 04/10/2024 11:43 AM Temperature (8310-5) 97.3 [degF] Respiratory Rate (9279-1) 16 /min Heart Rate (8867-4) 104 /min Blood Pressure Systolic (8480-6) 127 mm[Hg] Blood Pressure Diastolic (8462-4) 77 mm[Hg] 04/10/2024 11:42 AM Oxygen Saturation (65862-7) 95 % 04/09/2024 09:46 PM Oxygen Saturation (54516-8) 98 % 04/09/2024 08:36 AM Temperature (8310-5) 97.7 [degF] Oxygen Saturation (75894-6) 96 % Respiratory Rate (9279-1) 19 /min Heart Rate (8867-4) 112 /min Blood Pressure Systolic (8480-6) 142 mm[Hg] Blood Pressure Diastolic (8462-4) 92 mm[Hg] 04/08/2024 11:24 PM Oxygen Saturation (22831-4) 98 % 04/08/2024 10:18 AM Temperature (8310-5) 97.9 [degF] Respiratory Rate (9279-1) 19 /min Heart Rate (8867-4) 98 /min Blood Pressure Systolic (8480-6) 122 mm[Hg] Blood Pressure Diastolic (8462-4) 69 mm[Hg] 04/08/2024 07:11 AM Oxygen Saturation (48183-2) 95 % 04/07/2024 09:05 PM Oxygen Saturation (10702-5) 97 % 04/07/2024 09:17 AM Temperature (8310-5) 97.4 [degF] Respiratory Rate (9279-1) 20 /min Heart Rate (8867-4) 96 /min Blood Pressure Systolic (8480-6) 105 mm[Hg] Blood Pressure Diastolic (8462-4) 65 mm[Hg] 04/07/2024 07:34 AM Oxygen Saturation (02855-8) 96 % 04/06/2024 10:48 PM Temperature (8310-5) 98.1 [degF] Respiratory Rate (9279-1) 20 /min Heart Rate (8867-4) 90 /min Blood Pressure Systolic (8480-6) 120 mm[Hg] Blood Pressure Diastolic (8462-4) 68 mm[Hg] 04/06/2024 03:48 PM Body Weight (94276-9) 280 [lb_av] Body Mass Index (06486-2) 37.97 kg/m2 04/06/2024 06:38 AM Temperature (8310-5) [...] 54 mm[Hg] 04/05/2024 12:18 PM Body Weight (69116-4) 278.8 [lb_av ] Body Mass Index (57529-5) 37.81 kg/m2 04/05/2024 07:41 AM Temperature (8310-5) [...] 59 mm[Hg] 04/04/2024 11:08 AM Body Weight (87720-6) 286.4 [lb_av ] Body Mass Index (29731-3) 38.84 kg/m2 04/03/2024 08:40 AM Body Weight (07140-4) 287.6 [lb_av ] Body Mass Index (08986-6) 39 kg/m2 04/02/2024 01:19 PM Body Weight (46159-8) 282 [lb_av] Body Mass Index (76251-6) 38.24 kg/m2 04/01/2024 03:19 PM Body Weight (71307-3) 279.6 [lb_av ] Body Mass Index (69116-2) 37.92 kg/m2 03/31/2024 10:17 AM Body Weight (37916-4) 281.2 [lb_av ] Body Mass Index (97729-8) 38.13 kg/m2 03/30/2024 02:26 PM Body Weight (28286-8) 277 [lb_av] Body Mass Index (69941-3) 37.56 kg/m2 03/28/2024 03:28 PM Body Weight (52813-6) 271.6 [lb_av ] Body Mass Index (09031-6) 36.83 kg/m2 03/26/2024 11:43 AM Body Weight (74978-7) 279.2 [lb_av ] Body Mass Index (21665-4) 37.86 kg/m2 03/25/2024 11:02 AM Body Weight (61856-9) 279.8 [lb_av ] Body Mass Index (00982-0) 37.94 kg/m2 03/24/2024 10:04 AM Body Weight (14300-3) 279.4 [lb_av ] Body Mass Index (61158-8) 37.89 kg/m2 03/23/2024 04:48 PM Body Weight (60570-6) 281 [lb_av] Body Mass Index (52538-7) 38.11 kg/m2 03/22/2024 11:31 AM Body Weight (38947-1) 279.6 [lb_av ] Body Mass Index (15870-8) 37.92 kg/m2 03/21/2024 10:10 AM Body Weight (52726-0) 280 [lb_av] Body Mass Index (03371-3) 37.97 kg/m2 03/19/2024 03:48 PM Body Weight (02789-0) 278.9 [lb_av ] Body Mass Index (09944-8) 37.82 kg/m2 03/18/2024 04:02 PM Body Weight (59036-1) 278.8 [lb_av ] Body Mass Index (70592-6) 37.81 kg/m2 03/17/2024 03:17 PM Body Weight (03864-2) 280 [lb_av] Body Mass Index (75154-4) 37.97 kg/m2 03/16/2024 09:55 AM Body Weight (78422-0) 286 [lb_av] Body Mass Index (19290-9) 38.78 kg/m2 03/15/2024 08:42 AM Body Weight (49853-8) 274.6 [lb_av ] Body Mass Index (13211-5) 37.24 kg/m2 03/14/2024 03:41 PM Body Weight (64475-1) 275.8 [lb_av ] Body Mass Index (02549-0) 37.4 kg/m2 03/13/2024 03:41 PM Body Weight (41428-5) 275 [lb_av] Body Mass Index (87726-4) 37.29 kg/m2 03/12/2024 10:43 AM Body Weight (41499-3) 278.6 [lb_av ] Body Mass Index (86940-3) 37.78 kg/m2 03/11/2024 02:45 PM Body Weight (80554-1) 279.8 [lb_av ] Body Mass Index (80955-9) 37.94 kg/m2 03/10/2024 04:13 PM Body Weight (07317-4) 283.4 [lb_av ] Body Mass Index (33102-4) 38.43 kg/m2 03/09/2024 12:26 PM Body Weight (11367-9) 280 [lb_av] Body Mass Index (29952-0) 37.97 kg/m2 03/08/2024 01:41 PM Body Weight (36668-5) 280.2 [lb_av ] Body Mass Index (92102-9) 38 kg/m2 03/07/2024 12:19 PM Body Weight (55648-9) 280 [lb_av] Body Mass Index (25338-1) 37.97 kg/m2 03/06/2024 03:24 PM Body Weight (97056-6) 277.2 [lb_av ] Body Mass Index (64784-1) 37.59 kg/m2 03/04/2024 09:36 AM Body Weight (65990-8) 278.5 [lb_av ] Body Mass Index (79191-6) 37.77 kg/m2 03/03/2024 04:18 PM Body Weight (69003-4) 278.4 [lb_av ] Body Mass Index (62952-8) 37.75 kg/m2 03/02/2024 04:32 PM Body Weight (87025-6) 278.2 [lb_av ] Body Mass Index (70772-0) 37.73 kg/m2 03/01/2024 10:51 AM Body Weight (43994-0) 278 [lb_av] Body Mass Index (90651-1) 37.7 kg/m2 02/29/2024 11:30 AM Body Weight (30263-9) 282 [lb_av] Body Mass Index (43102-8) 38.24 kg/m2 02/27/2024 08:39 AM Body Weight (76584-2) 272.8 [lb_av ] Body Mass Index (53960-4) 36.99 kg/m2 02/26/2024 09:13 AM Body Weight (60840-8) 275.6 [lb_av ] Body Mass Index (01829-0) 37.37 kg/m2 04/12/2024 08:30 AM Temperature (8310-5) 98 [degF] Oxygen Saturation (00067-8) 94 % Respiratory Rate (9279-1) 15 /min Heart Rate (8867-4) 117 /min Blood Pressure Systolic (8480-6) 120 mm[Hg] Blood Pressure Diastolic (8462-4) 64 mm[Hg] 04/12/2024 08:29 AM Oxygen Saturation (98601-5) 94 % 04/13/2024 06:05 AM Temperature (8310-5) 98.2 [degF] Oxygen Saturation (28329-0) 94 % Respiratory Rate (9279-1) 19 /min Heart Rate (8867-4) 110 /min Blood Pressure Systolic (8480-6) 118 mm[Hg] Blood Pressure Diastolic (8462-4) 66 mm[Hg] 04/12/2024 06:59 PM Oxygen Saturation (69124-0) 95 % 04/14/2024 07:48 AM Temperature (8310-5) 98.7 [degF] Respiratory Rate (9279-1) 16 /min Heart Rate (8867-4) 86 /min Blood Pressure Systolic (8480-6) 109 mm[Hg] Blood Pressure Diastolic (8462-4) 65 mm[Hg] 04/14/2024 07:47 AM Oxygen Saturation (63352-3) 95 % 04/13/2024 08:11 PM Oxygen Saturation (31087-4) 95 % 04/15/2024 08:34 AM Temperature (8310-5) 98 [degF] Respiratory Rate (9279-1) 18 /min Heart Rate (8867-4) 92 /min Blood Pressure Systolic (8480-6) 119 mm[Hg] Blood Pressure Diastolic (8462-4) 66 mm[Hg] 04/15/2024 07:48 AM Oxygen Saturation (13678-7) 96 % 04/14/2024 09:51 PM Oxygen Saturation (08907-9) 95 % 04/16/2024 09:09 AM Oxygen Saturation (81800-9) 96 % 04/15/2024 11:56 PM Oxygen Saturation (50436-7) 95 % 04/16/2024 10:00 PM Oxygen Saturation (38364-1) 95 % 04/16/2024 04:01 PM Temperature (8310-5) [...] 62 mm[Hg] 04/18/2024 06:19 AM Oxygen Saturation (79344-2) 94 % 04/17/2024 08:04 PM Temperature (8310-5) 97.9 [degF] Oxygen Saturation (03683-5) 92 % Respiratory Rate (9279-1) 18 /min Heart Rate (8867-4) 118 /min Blood Pressure Systolic (8480-6) 96 mm[Hg] Blood Pressure Diastolic (8462-4) 59 mm[Hg] 04/17/2024 03:57 PM Temperature (8310-5) 97.1 [degF] Respiratory Rate (9279-1) 20 /min Heart Rate (8867-4) 128 /min Blood Pressure Systolic (8480-6) 120 mm[Hg] Blood Pressure Diastolic (8462-4) 65 mm[Hg] 04/17/2024 03:56 PM Oxygen Saturation (30100-0) 94 % 04/19/2024 07:37 AM Temperature (8310-5) 97.8 [degF] Oxygen Saturation (63475-0) 96 % Respiratory Rate (9279-1) 19 /min Heart Rate (8867-4) 100 /min Blood Pressure Systolic (8480-6) 112 mm[Hg] Blood Pressure Diastolic (8462-4) 54 mm[Hg] 04/18/2024 08:42 PM Oxygen Saturation (73064-6) 96 % 04/20/2024 06:36 AM Temperature (8310-5) 98 [degF] Respiratory Rate (9279-1) 17 /min Heart Rate (8867-4) 98 /min Blood Pressure Systolic (8480-6) 120 mm[Hg] Blood Pressure Diastolic (8462-4) 58 mm[Hg] 04/20/2024 06:35 AM Oxygen Saturation (62732-2) 96 % 04/20/2024 04:58 AM Oxygen Saturation (65067-5) 94 % 04/20/2024 08:09 PM Oxygen Saturation (26772-0) 96 % 04/21/2024 09:38 PM Oxygen Saturation (02814-0) 96 % 04/21/2024 04:27 PM Temperature (8310-5) 98.2 [degF] Oxygen Saturation (39465-2) 94 % Respiratory Rate (9279-1) 18 /min Heart Rate (8867-4) 96 /min Blood Pressure Systolic (8480-6) 137 mm[Hg] Blood Pressure Diastolic (8462-4) 71 mm[Hg] 04/21/2024 03:11 PM Oxygen Saturation (58379-1) 94 % 04/22/2024 07:47 AM Temperature (8310-5) 99.6 [degF] Oxygen Saturation (70703-1) 97 % Respiratory Rate (9279-1) 20 /min Heart Rate (8867-4) 115 /min Blood Pressure Systolic (8480-6) 132 mm[Hg] Blood Pressure Diastolic (8462-4) 79 mm[Hg] 04/22/2024 08:54 PM Oxygen Saturation (99205-7) 96 % 04/23/2024 09:02 PM Oxygen Saturation (52137-5) 95 % 04/23/2024 07:28 AM Temperature (8310-5) 98.3 [degF] Oxygen Saturation (30229-4) 97 % Respiratory Rate (9279-1) 22 /min Heart Rate (8867-4) 123 /min Blood Pressure Systolic (8480-6) 125 mm[Hg] Blood Pressure Diastolic (8462-4) 72 mm[Hg] 04/24/2024 09:52 AM Temperature (8310-5) 98.2 [degF] Oxygen Saturation (10026-6) 94 % Respiratory Rate (9279-1) 20 /min Heart Rate (8867-4) 98 /min Blood Pressure Systolic (8480-6) 127 mm[Hg] Blood Pressure Diastolic (8462-4) 74 mm[Hg] 04/24/2024 09:50 AM Oxygen Saturation (68527-2) 94 % 04/25/2024 09:36 AM Temperature (8310-5) 98.2 [degF] Oxygen Saturation (72789-8) 95 % Respiratory Rate (9279-1) 20 /min Heart Rate (8867-4) 105 /min Blood Pressure Systolic (8480-6) 108 mm[Hg] Blood Pressure Diastolic (8462-4) 61 mm[Hg] 04/24/2024 06:36 PM Oxygen Saturation (29338-7) 96 % 04/26/2024 10:50 AM Temperature (8310-5) 97.9 [degF] Oxygen Saturation (67520-5) 92 % Respiratory Rate (9279-1) 20 /min Heart Rate (8867-4) 84 /min Blood Pressure Systolic (8480-6) 107 mm[Hg] Blood Pressure Diastolic (8462-4) 61 mm[Hg] 04/25/2024 07:14 PM Oxygen Saturation (42709-1) 95 % 04/26/2024 10:43 PM Oxygen Saturation (30738-1) 95 % 04/27/2024 10:35 PM Oxygen Saturation (15568-4) 96 % 04/27/2024 06:53 AM Temperature (8310-5) 98 [degF] Oxygen Saturation (29299-2) 96 % Respiratory Rate (9279-1) 18 /min Heart Rate (8867-4) 90 /min Blood Pressure Systolic (8480-6) 117 mm[Hg] Blood Pressure Diastolic (8462-4) 67 mm[Hg] 04/28/2024 07:03 AM Temperature (8310-5) 97.6 [degF] Respiratory Rate (9279-1) 19 /min Heart Rate (8867-4) 85 /min Blood Pressure Systolic (8480-6) 122 mm[Hg] Blood Pressure Diastolic (8462-4) 60 mm[Hg] 04/28/2024 07:02 AM Oxygen Saturation (90794-4) 95 % 04/29/2024 06:53 AM Temperature (8310-5) 98 [degF] Respiratory Rate (9279-1) 20 /min Heart Rate (8867-4) 92 /min Blood Pressure Systolic (8480-6) 130 mm[Hg] Blood Pressure Diastolic (8462-4) 66 mm[Hg] 04/29/2024 06:52 AM Oxygen Saturation (38465-7) 98 % 04/28/2024 09:31 PM Oxygen Saturation (61476-5) 97 % 04/29/2024 10:23 PM Oxygen Saturation (11575-0) 97 % 04/30/2024 06:52 AM Temperature (8310-5) 98.5 [degF] Oxygen Saturation (75226-9) 95 % Respiratory Rate (9279-1) 18 /min Heart Rate (8867-4) 99 /min Blood Pressure Systolic (8480-6) 126 mm[Hg] Blood Pressure Diastolic (8462-4) 63 mm[Hg] 05/01/2024 09:20 AM Temperature (8310-5) 97.1 [degF] Oxygen Saturation (19741-6) 93 % Respiratory Rate (9279-1) 18 /min Heart Rate (8867-4) 97 /min Blood Pressure Systolic (8480-6) 97 mm[Hg] Blood Pressure Diastolic (8462-4) 62 mm[Hg] 04/30/2024 11:47 PM Oxygen Saturation (52589-2) 98 % 05/02/2024 06:28 PM Oxygen Saturation (08863-6) 97 % 05/02/2024 06:58 AM Temperature (8310-5) 98 [degF] Oxygen Saturation (96953-9) 96 % Respiratory Rate (9279-1) 19 /min Heart Rate (8867-4) 87 /min Blood Pressure Systolic (8480-6) 112 mm[Hg] Blood Pressure Diastolic (8462-4) 68 mm[Hg] 05/01/2024 07:42 PM Oxygen Saturation (15848-8) 94 % 05/03/2024 07:14 AM Body Weight (53935-7) 275.4 [lb_av ] Body Mass Index (40139-7) 37.35 kg/m2 05/03/2024 07:13 AM Temperature (8310-5) 98.3 [degF] Oxygen Saturation (25030-7) 96 % Respiratory Rate (9279-1) 17 /min Heart Rate (8867-4) 105 /min Blood Pressure Systolic (8480-6) 110 mm[Hg] Blood Pressure Diastolic (8462-4) 68 mm[Hg] 05/04/2024 01:47 PM Body Weight (60519-0) 275.3 [lb_av ] Body Mass Index (12281-6) 37.33 kg/m2 05/04/2024 06:44 AM Oxygen Saturation (41510-4) 96 % 05/03/2024 08:09 PM Oxygen Saturation (58952-0) 94 % 05/05/2024 01:06 AM Oxygen Saturation (37847-0) 98 % 05/05/2024 08:18 AM Oxygen Saturation (11329-3) 96 % 05/05/2024 02:27 PM Body Weight (85779-1) 274.8 [lb_av ] Body Mass Index (71350-2) 37.27 kg/m2 05/06/2024 01:58 PM Body Weight (13636-1) 284.8 [lb_av ] Body Mass Index (81081-0) 38.62 kg/m2 05/06/2024 07:27 AM Oxygen Saturation (08058-7) 98 % 05/05/2024 10:07 PM Oxygen Saturation (05094-1) 96 % 05/06/2024 09:02 PM Oxygen Saturation (19729-3) 96 % 05/07/2024 08:01 PM Oxygen Saturation (43741-9) 95 % 05/07/2024 08:37 AM Oxygen Saturation (87510-0) 97 % 05/08/2024 08:47 AM Oxygen Saturation (48199-8) 94 % 05/09/2024 06:24 PM Oxygen Saturation (79763-1) 99 % 05/08/2024 07:26 PM Oxygen Saturation (14268-3) 96 % 05/09/2024 07:52 AM Oxygen Saturation (25096-0) 97 % 05/09/2024 08:12 PM Oxygen Saturation (47795-7) 99 % 05/10/2024 09:49 AM Temperature (8310-5) 98.1 [degF] Oxygen Saturation (20450-2) 97 % Respiratory Rate (9279-1) 22 /min Heart Rate (8867-4) 95 /min Blood Pressure Systolic (8480-6) 122 mm[Hg] Blood Pressure Diastolic (8462-4) 67 mm[Hg] 05/11/2024 06:37 AM Oxygen Saturation (55453-1) 95 % 05/10/2024 08:00 PM Oxygen Saturation (66158-4) 96 % 05/12/2024 07:07 AM Oxygen Saturation (69135-4) 96 % 05/12/2024 03:14 PM Body Weight (32283-2) 290.6 [lb_av ] Body Mass Index (12469-7) 39.41 kg/m2 05/11/2024 09:28 PM Oxygen Saturation (23708-9) 96 % 05/13/2024 01:37 PM Body Weight (32465-5) 289.4 [lb_av ] Body Mass Index (16905-4) 39.25 kg/m2 05/12/2024 10:09 PM Oxygen Saturation (74040-1) 95 % 05/13/2024 06:35 AM Oxygen Saturation (02114-5) 97 % 05/12/2024 10:08 PM Oxygen Saturation (85784-4) 96 % 05/13/2024 10:08 PM Oxygen Saturation (71946-0) 95 % 05/14/2024 06:26 AM Oxygen Saturation (52859-4) 97 % 05/15/2024 09:23 AM Oxygen Saturation (24567-0) 97 % 05/15/2024 05:24 AM Oxygen Saturation (40111-6) 96 % 05/16/2024 07:06 AM Oxygen Saturation (38769-0) 95 % 05/15/2024 11:04 PM Oxygen Saturation (94175-1) 97 % 05/17/2024 07:20 AM Temperature (8310-5) 98.1 [degF] Respiratory Rate (9279-1) 18 /min Heart Rate (8867-4) 94 /min Blood Pressure Systolic (8480-6) 122 mm[Hg] Blood Pressure Diastolic (8462-4) 62 mm[Hg] 05/17/2024 07:19 AM Oxygen Saturation (40939-8) 97 % 05/16/2024 08:47 PM Oxygen Saturation (95354-8) 93 % 05/17/2024 09:06 PM Oxygen Saturation (87338-7) 95 % 05/18/2024 06:51 AM Oxygen Saturation (33137-9) 96 % 05/19/2024 05:37 PM Oxygen Saturation (54341-2) 96 % 05/19/2024 07:13 AM Oxygen Saturation (52092-6) 94 % 05/18/2024 06:19 PM Oxygen Saturation (71660-1) 97 % 05/20/2024 08:10 PM Oxygen Saturation (53201-0) 98 % 05/20/2024 07:51 AM Oxygen Saturation (26949-6) 96 % 05/21/2024 08:12 AM Oxygen Saturation (72746-9) 94 % 05/21/2024 08:01 PM Oxygen Saturation (62761-7) 98 % 05/22/2024 08:11 PM Oxygen Saturation (70308-0) 96 % 05/22/2024 09:25 AM Oxygen Saturation (45475-7) 96 % 05/23/2024 08:48 AM Oxygen Saturation (29880-1) 96 % 05/24/2024 12:27 PM Temperature (8310-5) 98.2 [degF] Respiratory Rate (9279-1) 18 /min Heart Rate (8867-4) 90 /min Blood Pressure Systolic (8480-6) 128 mm[Hg] Blood Pressure Diastolic (8462-4) 66 mm[Hg] 05/24/2024 12:26 PM Oxygen Saturation (11149-5) 98 % 05/23/2024 10:45 PM Oxygen Saturation (61681-6) 99 % 05/25/2024 07:26 AM Oxygen Saturation (52858-9) 94 % 05/24/2024 08:08 PM Oxygen Saturation (89711-9) 96 % 05/25/2024 08:53 PM Oxygen Saturation (93840-1) 95 % 05/26/2024 06:57 AM Oxygen Saturation (30932-6) 96 % 02/24/2024 10:04 PM Body Height (8302-2) 72 [in_us] 05/26/2024 09:04 PM Oxygen Saturation (15371-9) 95 % 05/27/2024 07:00 AM Oxygen Saturation (89635-5) 97 % 05/27/2024 09:23 PM Oxygen Saturation (17276-5) 95 % 05/28/2024 10:04 PM Oxygen Saturation (07754-7) 95 % 05/28/2024 06:49 AM Oxygen Saturation (08719-0) 97 % 05/29/2024 09:30 AM Oxygen Saturation (53083-5) 93 % 05/30/2024 06:50 AM Oxygen Saturation (05036-0) 94 % 05/29/2024 08:55 PM Temperature (8310-5) 98.1 [degF] Oxygen Saturation (54870-8) 93 % Respiratory Rate (9279-1) 22 /min Heart Rate (8867-4) 121 /min Blood Pressure Systolic (8480-6) 123 mm[Hg] Blood Pressure Diastolic (8462-4) 79 mm[Hg] 05/30/2024 08:51 PM Oxygen Saturation (21143-2) 95 % 05/31/2024 07:48 AM Temperature (8310-5) 97.3 [degF] Oxygen Saturation (32815-5) 92 % Respiratory Rate (9279-1) 18 /min Heart Rate (8867-4) 120 /min Blood Pressure Systolic (8480-6) 120 mm[Hg] Blood Pressure Diastolic (8462-4) 77 mm[Hg] 06/01/2024 07:09 AM Oxygen Saturation (92540-1) 97 % 05/31/2024 10:45 PM Oxygen Saturation (09092-1) 98 % 06/02/2024 09:04 AM Oxygen Saturation (64317-8) 94 % 06/03/2024 08:53 AM Oxygen Saturation (40531-8) 98 % 06/02/2024 08:58 PM Oxygen Saturation (58006-7) 95 % 06/03/2024 10:21 AM Body Weight (92830-1) 288.8 [lb_av ] Body Mass Index (64900-9) 39.16 kg/m2 06/03/2024 11:11 PM Oxygen Saturation (40322-0) 95 % 06/04/2024 09:57 AM Oxygen Saturation (62788-7) 92 % 06/04/2024 10:07 PM Oxygen Saturation (20900-2) 95 % 06/05/2024 03:09 PM Body Weight (70387-6) 291.4 [lb_av ] Body Mass Index (26544-9) 39.52 kg/m2 06/05/2024 10:20 PM Oxygen Saturation (24258-4) 96 % 06/05/2024 08:54 AM Oxygen Saturation (09590-2) 92 % 06/06/2024 02:44 PM Body Weight (18145-8) 287.8 [lb_av ] Body Mass Index (08867-9) 39.03 kg/m2 06/06/2024 10:45 AM Oxygen Saturation (46055-1) 94 % 06/07/2024 02:30 PM Temperature (8310-5) 97.6 [degF] Oxygen Saturation (79894-0) 91 % Respiratory Rate (9279-1) 21 /min Heart Rate (8867-4) 86 /min Blood Pressure Systolic (8480-6) 113 mm[Hg] Blood Pressure Diastolic (8462-4) 50 mm[Hg] 06/07/2024 02:47 PM Body Weight (70275-6) 287.2 [lb_av ] Body Mass Index (76092-8) 38.95 kg/m2 06/07/2024 02:29 PM Oxygen Saturation (03285-9) 91 % 06/06/2024 08:13 PM Oxygen Saturation (36458-9) 93 % 06/08/2024 07:14 AM Oxygen Saturation (04457-4) 95 % 06/07/2024 09:07 PM Oxygen Saturation (40882-6) 96 % 06/09/2024 06:51 AM Oxygen Saturation (55011-6) 97 % 06/08/2024 08:32 PM Oxygen Saturation (39914-4) 95 % 06/10/2024 06:55 AM Oxygen Saturation (51865-2) 97 % 06/09/2024 08:20 PM Oxygen Saturation (79426-3) 96 % 06/10/2024 07:53 PM Oxygen Saturation (34294-2) 95 % 06/11/2024 06:41 PM Oxygen Saturation (76332-9) 96 % 06/11/2024 08:07 AM Oxygen Saturation (60735-5) 90 % 06/12/2024 03:29 PM Body Weight (67865-7) 282.4 [lb_av ] Body Mass Index (34101-7) 38.3 kg/m2 06/12/2024 07:39 AM Oxygen Saturation (55431-2) 93 % 06/12/2024 09:03 PM Oxygen Saturation (01058-8) 98 % 06/13/2024 07:28 PM Oxygen Saturation (89830-3) 93 % 06/13/2024 03:10 PM Body Weight (76352-9) 282.3 [lb_av ] Body Mass Index (24380-6) 38.28 kg/m2 06/13/2024 07:19 AM Oxygen Saturation (82399-3) 97 % 06/14/2024 07:44 PM Oxygen Saturation (42565-9) 94 % 06/14/2024 01:50 PM Body Weight (06425-9) 277.6 [lb_av ] Body Mass Index (88548-8) 37.65 kg/m2 06/14/2024 08:58 AM Temperature (8310-5) 99.9 [degF] Oxygen Saturation (86496-8) 92 % Respiratory Rate (9279-1) 18 /min Heart Rate (8867-4) 120 /min Blood Pressure Systolic (8480-6) 160 mm[Hg] Blood Pressure Diastolic (8462-4) 65 mm[Hg] 06/15/2024 12:25 PM Body Weight (07970-0) 280 [lb_av] Body Mass Index (58587-0) 37.97 kg/m2 06/15/2024 07:10 AM Oxygen Saturation (65096-2) 96 % 06/16/2024 01:51 PM Body Weight (59333-3) 276.2 [lb_av ] Body Mass Index (17053-8) 37.46 kg/m2 06/16/2024 09:17 AM Oxygen Saturation (39198-4) 94 % 06/16/2024 11:32 PM Oxygen Saturation (65901-0) 95 % 06/17/2024 09:52 PM Oxygen Saturation (49222-0) 95 % 06/17/2024 02:56 PM Body Weight (05069-5) 274.8 [lb_av ] Body Mass Index (43653-7) 37.27 kg/m2 06/17/2024 09:37 AM Oxygen Saturation (08987-1) 92 % 06/17/2024 09:36 AM Oxygen Saturation (67749-4) 92 % 06/18/2024 01:17 PM Body Weight (67412-0) 272.4 [lb_av ] Body Mass Index (54992-1) 36.94 kg/m2 06/18/2024 07:20 AM Oxygen Saturation (19776-6) 96 % 06/18/2024 07:19 AM Oxygen Saturation (49953-9) 96 % 06/19/2024 02:28 AM Oxygen Saturation (51261-1) 95 % 06/19/2024 09:27 PM Oxygen Saturation (84086-8) 92 % 06/19/2024 02:25 PM Oxygen Saturation (40627-7) 94 % Body Weight (45116-8) 274.2 [lb_av] Body Mass Index (96572-9) 37.18 kg/m2 06/20/2024 09:57 AM Oxygen Saturation (02374-3) 92 % 06/21/2024 01:31 PM Body Weight (32237-1) 270.4 [lb_av ] Body Mass Index (18005-4) 36.67 kg/m2 06/21/2024 05:56 AM Temperature (8310-5) 97.1 [degF] Respiratory Rate (9279-1) 18 /min Heart Rate (8867-4) 94 /min Blood Pressure Systolic (8480-6) 116 mm[Hg] Blood Pressure Diastolic (8462-4) 80 mm[Hg] 06/21/2024 05:55 AM Oxygen Saturation (39888-0) 96 % 06/20/2024 06:43 PM Oxygen Saturation (71264-9) 96 % 06/20/2024 04:12 PM Body Weight (25396-3) 277 [lb_av] Body Mass Index (58490-8) 37.56 kg/m2 06/22/2024 12:33 PM Body Weight (30139-9) 273 [lb_av] Body Mass Index (80795-1) 37.02 kg/m2 06/22/2024 07:22 AM Oxygen Saturation (06457-4) 94 % 06/21/2024 08:28 PM Oxygen Saturation (65988-3) 92 % 06/23/2024 10:05 AM Body Weight (40627-6) 267.8 [lb_av ] Body Mass Index (80963-0) 36.32 kg/m2 06/23/2024 06:29 AM Oxygen Saturation (03789-6) 96 % 06/22/2024 09:03 PM Oxygen Saturation (48852-3) 95 % 06/22/2024 08:51 PM Oxygen Saturation (21887-8) 95 % 06/23/2024 11:20 PM Oxygen Saturation (68955-4) 95 % 06/24/2024 04:34 PM Body Weight (74046-7) 267.6 [lb_av ] Body Mass Index (07868-0) 36.29 kg/m2 06/24/2024 06:59 AM Oxygen Saturation (93507-7) 96 % 06/25/2024 06:43 AM Oxygen Saturation (35199-4) 94 % 06/25/2024 12:19 AM Oxygen Saturation (01918-5) 95 % 06/25/2024 03:18 PM Body Weight (87862-2) 268 [lb_av] Body Mass Index (59879-1) 36.34 kg/m2 06/26/2024 03:33 PM Body Weight (52342-6) 268 [lb_av] Body Mass Index (62803-4) 36.34 kg/m2 06/26/2024 01:24 PM Oxygen Saturation (45388-0) 93 % 06/27/2024 02:06 PM Body Weight (54440-5) 266.8 [lb_av ] Body Mass Index (45856-4) 36.18 kg/m2 06/27/2024 07:00 AM Oxygen Saturation (55337-2) 93 % 06/27/2024 12:38 AM Oxygen Saturation (34251-9) 90 % 06/27/2024 07:18 PM Oxygen Saturation (77248-1) 93 % 06/28/2024 09:04 PM Oxygen Saturation (48702-9) 94 % 06/28/2024 02:50 PM Body Weight (77695-4) 271 [lb_av] Body Mass Index (62083-1) 36.75 kg/m2 06/28/2024 06:56 AM Temperature (8310-5) 97.1 [degF] Respiratory Rate (9279-1) 18 /min Heart Rate (8867-4) 79 /min Blood Pressure Systolic (8480-6) 117 mm[Hg] Blood Pressure Diastolic (8462-4) 52 mm[Hg] 06/28/2024 06:54 AM Oxygen Saturation (56790-8) 94 % 06/29/2024 06:51 AM Oxygen Saturation (67816-0) 95 % 06/29/2024 08:05 PM Oxygen Saturation (20706-2) 98 % 06/30/2024 11:08 AM Body Weight (66650-1) 271.2 [lb_av ] Body Mass Index (41995-9) 36.78 kg/m2 06/30/2024 07:22 AM Oxygen Saturation (02034-9) 97 % 07/01/2024 09:54 AM Oxygen Saturation (97024-5) 93 % 07/01/2024 09:36 AM Oxygen Saturation (33915-5) 93 % 07/01/2024 12:13 AM Oxygen Saturation (23929-5) 95 % 07/02/2024 09:15 AM Oxygen Saturation (99960-2) 95 % 07/01/2024 09:49 PM Oxygen Saturation (10222-4) 95 % 07/01/2024 10:11 AM Body Weight (80217-3) 271.2 [lb_av ] Body Mass Index (84777-6) 36.78 kg/m2 07/02/2024 09:35 PM Oxygen Saturation (15238-1) 95 % 07/02/2024 04:13 PM Body Weight (18535-2) 272.8 [lb_av ] Body Mass Index (73106-2) 36.99 kg/m2 07/03/2024 06:52 PM Oxygen Saturation (78945-5) 97 % 07/03/2024 12:48 PM Oxygen Saturation (08354-5) 94 % 07/04/2024 09:25 AM Oxygen Saturation (24528-3) 95 % 07/05/2024 11:09 AM Temperature (8310-5) 98.2 [degF] Oxygen Saturation (59930-1) 94 % Respiratory Rate (9279-1) 20 /min Heart Rate (8867-4) 109 /min Blood Pressure Systolic (8480-6) 124 mm[Hg] Blood Pressure Diastolic (8462-4) 70 mm[Hg] 07/05/2024 11:08 AM Oxygen Saturation (16975-9) 94 % 07/04/2024 08:02 PM Oxygen Saturation (77252-8) 97 % 07/06/2024 03:22 PM Body Weight (78276-7) 275.6 [lb_av ] Body Mass Index (69183-6) 37.37 kg/m2 07/06/2024 07:11 AM Oxygen Saturation (97907-9) 96 % 07/06/2024 12:42 AM Oxygen Saturation (00322-2) 97 % 07/05/2024 04:23 PM Body Weight (40783-3) 272 [lb_av] Body Mass Index (79328-3) 36.89 kg/m2 07/07/2024 01:57 PM Body Weight (19992-8) 276 [lb_av] Body Mass Index (60963-9) 37.43 kg/m2 07/07/2024 07:20 AM Oxygen Saturation (93636-9) 97 % 07/06/2024 11:55 PM Oxygen Saturation (98380-1) 95 % 07/07/2024 09:15 PM Oxygen Saturation (30383-1) 95 % 07/08/2024 09:40 PM Oxygen Saturation (01408-4) 98 % 07/08/2024 04:53 PM Body Weight (68317-9) 275.2 [lb_av ] Body Mass Index (92501-7) 37.32 kg/m2 07/08/2024 07:01 AM Oxygen Saturation (16107-7) 96 % 07/09/2024 07:11 AM Oxygen Saturation (15024-7) 95 % 07/09/2024 10:11 PM Oxygen Saturation (77948-2) 95 % 07/10/2024 08:25 PM Oxygen Saturation (80281-4) 95 % 07/10/2024 02:53 PM Body Weight (50047-7) 267.2 [lb_av ] Body Mass Index (64255-0) 36.23 kg/m2 07/10/2024 06:53 AM Oxygen Saturation (58529-6) 97 % 07/10/2024 06:51 AM Oxygen Saturation (37837-3) 97 % 07/11/2024 10:54 AM Body Weight (18420-2) 267.3 [lb_av ] Body Mass Index (92087-7) 36.25 kg/m2 07/11/2024 07:16 AM Oxygen Saturation (60905-0) 96 % 07/11/2024 06:23 PM Oxygen Saturation (12100-6) 93 % 07/12/2024 08:23 AM Temperature (8310-5) 97 [degF] Respiratory Rate (9279-1) 18 /min Heart Rate (8867-4) 100 /min Blood Pressure Systolic (8480-6) 120 mm[Hg] Blood Pressure Diastolic (8462-4) 70 mm[Hg] 07/12/2024 08:22 AM Oxygen Saturation (61805-1) 97 % 07/12/2024 02:03 PM Body Weight (66275-1) 276 [lb_av] Body Mass Index (63065-6) 37.43 kg/m2 07/12/2024 10:12 PM Oxygen Saturation (06534-0) 96 % 07/13/2024 07:02 AM Oxygen Saturation (08722-6) 97 % 07/13/2024 04:17 PM Body Weight (11131-9) 276.5 [lb_av ] Body Mass Index (93640-5) 37.5 kg/m2 07/13/2024 08:03 PM Oxygen Saturation (45578-7) 96 % 07/14/2024 08:28 AM Oxygen Saturation (57533-5) 98 % 07/14/2024 11:43 AM Body Weight (83461-7) 275.4 [lb_av ] Body Mass Index (79418-4) 37.35 kg/m2 07/15/2024 08:56 AM Oxygen Saturation (47433-9) 98 % 07/15/2024 01:45 AM Oxygen Saturation (35832-8) 95 % 07/15/2024 09:42 AM Body Weight (07915-6) 276.4 [lb_av ] Body Mass Index (49284-2) 37.48 kg/m2 07/15/2024 08:43 PM Oxygen Saturation (03484-2) 95 % 07/16/2024 08:45 AM Oxygen Saturation (15447-4) 98 % 07/16/2024 02:39 PM Body Weight (48215-7) 276.1 [lb_av ] Body Mass Index (39276-6) 37.44 kg/m2 07/16/2024 07:52 PM Oxygen Saturation (64938-2) 95 % 07/17/2024 02:33 PM Body Weight (65496-5) 276.2 [lb_av ] Body Mass Index (08791-8) 37.46 kg/m2 07/17/2024 10:38 AM Oxygen Saturation (89582-3) 94 % 07/17/2024 08:26 PM Oxygen Saturation (75676-1) 95 % 07/18/2024 08:47 AM Oxygen Saturation (13433-1) 98 % 07/18/2024 03:52 PM Body Weight (39695-2) 276.6 [lb_av ] Body Mass Index (01272-3) 37.51 kg/m2 07/19/2024 08:57 AM Temperature (8310-5) 98.1 [degF] Oxygen Saturation (42223-5) 95 % Respiratory Rate (9279-1) 18 /min Heart Rate (8867-4) 117 /min Blood Pressure Systolic (8480-6) 127 mm[Hg] Blood Pressure Diastolic (8462-4) 79 mm[Hg] 07/19/2024 08:56 AM Oxygen Saturation (20276-9) 95 % 07/18/2024 09:36 PM Oxygen Saturation (93640-0) 96 % 07/19/2024 04:11 PM Body Weight (79248-3) 277 [lb_av] Body Mass Index (81954-7) 37.56 kg/m2 07/19/2024 07:33 PM Oxygen Saturation (09710-3) 92 % 07/20/2024 06:57 AM Oxygen Saturation (57817-4) 94 % 07/20/2024 04:26 PM Body Weight (06361-9) 278 [lb_av] Body Mass Index (05604-3) 37.7 kg/m2 07/20/2024 08:54 PM Oxygen Saturation (83246-1) 95 % 07/20/2024 09:07 PM Oxygen Saturation (90449-7) 95 % 07/21/2024 07:01 AM Oxygen Saturation (06027-3) 96 % 07/21/2024 10:19 AM Body Weight (17178-8) 278.5 [lb_av ] Body Mass Index (71904-5) 37.77 kg/m2 07/21/2024 08:45 PM Oxygen Saturation (45822-1) 95 % 07/22/2024 07:28 AM Oxygen Saturation (24934-1) 96 % 07/22/2024 08:03 PM Oxygen Saturation (28834-2) 96 % 07/23/2024 08:17 AM Oxygen Saturation (68381-6) 93 % 07/23/2024 02:44 PM Body Weight (81107-3) 278 [lb_av] Body Mass Index (52397-4) 37.7 kg/m2 07/23/2024 08:20 PM Oxygen Saturation (72364-9) 95 % 2024 07:20 AM Oxygen Saturation (75492-6) 95 % 2024 07:18 AM Oxygen Saturation (64872-6) 95 % 2024 07:12 PM Oxygen Saturation (04783-3) 91 % 07/25/2024 07:32 AM Oxygen Saturation (99259-2) 92 % 07/25/2024 07:49 PM Oxygen Saturation (89058-3) 93 % 07/26/2024 07:45 AM Temperature (8310-5) 98.4 [degF] Oxygen Saturation (81744-0) 92 % Respiratory Rate (9279-1) 19 /min Heart Rate (8867-4) 117 /min Blood Pressure Systolic (8480-6) 146 mm[Hg] Blood Pressure Diastolic (8462-4) 74 mm[Hg] 07/27/2024 12:29 AM Oxygen Saturation (41189-1) 94 % 07/27/2024 07:51 AM Oxygen Saturation (12854-9) 95 % 07/27/2024 08:21 PM Oxygen Saturation (68819-6) 93 % 07/28/2024 07:20 AM Oxygen Saturation (11803-1) 97 % 07/28/2024 09:37 PM Oxygen Saturation (25102-8) 96 % 07/29/2024 02:06 PM Oxygen Saturation (49553-9) 91 % 07/29/2024 08:41 PM Oxygen Saturation (62537-5) 98 % 07/30/2024 10:32 AM Oxygen Saturation (40409-0) 92 % 07/30/2024 07:47 PM Oxygen Saturation (44718-4) 95 % 07/31/2024 09:09 AM Oxygen Saturation (73727-8) 96 % 07/31/2024 03:39 PM Body Weight (05786-6) 270.8 [lb_av ] Body Mass Index (59568-3) 36.72 kg/m2 07/31/2024 07:05 PM Oxygen Saturation (26855-0) 95 % 08/01/2024 07:02 AM Oxygen Saturation (31191-0) 96 % 08/01/2024 11:33 AM Body Weight (34781-2) 273.2 [lb_av ] Body Mass Index (54410-1) 37.05 kg/m2 08/02/2024 12:31 AM Oxygen Saturation (36866-4) 96 % 08/02/2024 09:52 AM Body Weight (47213-1) 273 [lb_av] Body Mass Index (35172-1) 37.02 kg/m2 08/02/2024 10:06 AM Temperature (8310-5) 98.4 [degF] Oxygen Saturation (17068-1) 92 % Respiratory Rate (9279-1) 19 /min Heart Rate (8867-4) 110 /min Blood Pressure Systolic (8480-6) 111 mm[Hg] Blood Pressure Diastolic (8462-4) 63 mm[Hg] 08/02/2024 11:32 PM Oxygen Saturation (50542-9) 90 % 08/03/2024 07:40 AM Oxygen Saturation (99960-7) 93 % 08/04/2024 12:43 AM Oxygen Saturation (75488-2) 97 % 08/04/2024 09:50 AM Body Weight (11006-8) 270 [lb_av] Body Mass Index (14473-5) 36.61 kg/m2 08/04/2024 07:25 AM Oxygen Saturation (24064-9) 95 % 08/04/2024 11:54 PM Oxygen Saturation (87337-5) 95 % 08/05/2024 12:04 AM Oxygen Saturation (46932-0) 95 % 08/05/2024 06:47 AM Oxygen Saturation (09728-9) 96 % 08/05/2024 03:09 PM Body Weight (05422-4) 271 [lb_av] Body Mass Index (81132-4) 36.75 kg/m2 08/05/2024 09:52 PM Oxygen Saturation (65327-1) 95 % 08/06/2024 07:38 AM Oxygen Saturation (67314-2) 96 % 08/06/2024 08:33 PM Oxygen Saturation (54589-4) 95 % 08/07/2024 10:43 PM Oxygen Saturation (57195-0) 92 % 08/07/2024 06:33 PM Oxygen Saturation (73050-9) 95 % 08/08/2024 07:13 AM Oxygen Saturation (15568-9) 94 % 08/08/2024 10:14 PM Oxygen Saturation (01525-5) 93 % 08/09/2024 07:32 AM Temperature (8310-5) 98.4 [degF] Respiratory Rate (9279-1) 19 /min Heart Rate (8867-4) 103 /min Blood Pressure Systolic (8480-6) 130 mm[Hg] Blood Pressure Diastolic (8462-4) 70 mm[Hg] 08/09/2024 07:31 AM Oxygen Saturation (30016-1) 93 % 08/09/2024 03:06 PM Body Weight (20289-7) 271.5 [lb_av ] Body Mass Index (66244-9) 36.82 kg/m2 08/09/2024 08:52 PM Oxygen Saturation (23452-3) 91 % 08/10/2024 07:00 AM Oxygen Saturation (51892-3) 93 % 08/10/2024 08:44 PM Oxygen Saturation (92130-7) 95 % 08/11/2024 05:59 PM Body Weight (54109-5) 266.6 [lb_av ] Body Mass Index (69390-3) 36.15 kg/m2 08/11/2024 11:26 PM Oxygen Saturation (82358-5) 95 % 08/12/2024 07:44 AM Oxygen Saturation (20738-6) 92 % 08/12/2024 04:47 PM Body Weight (32554-5) 269.6 [lb_av ] Body Mass Index (52804-3) 36.56 kg/m2 08/12/2024 09:59 PM Oxygen Saturation (57787-1) 95 % 08/13/2024 07:55 AM Oxygen Saturation (28049-9) 100 % 08/13/2024 05:19 PM Body Weight (34217-8) 265.6 [lb_av ] Body Mass Index (43544-6) 36.02 kg/m2 08/14/2024 02:27 PM Body Weight (29844-8) 270.4 [lb_av ] Body Mass Index (57289-1) 36.67 kg/m2 08/14/2024 11:29 AM Oxygen Saturation (89552-5) 93 % 08/14/2024 11:28 AM Oxygen Saturation (48243-1) 93 % 08/14/2024 11:45 PM Oxygen Saturation (82977-6) 95 % 08/15/2024 10:31 AM Body Weight (66963-6) 266.2 [lb_av ] Body Mass Index (45418-3) 36.1 kg/m2 08/15/2024 10:17 AM Oxygen Saturation (02317-6) 96 % 08/16/2024 02:52 AM Oxygen Saturation (21784-1) 96 % 08/16/2024 12:52 PM Temperature (8310-5) 98.1 [degF] Oxygen Saturation (12289-3) 97 % Respiratory Rate (9279-1) 19 /min Heart Rate (8867-4) 124 /min Blood Pressure Systolic (8480-6) 122 mm[Hg] Blood Pressure Diastolic (8462-4) 78 mm[Hg] 08/16/2024 11:46 AM Body Weight (57531-9) 270 [lb_av] Body Mass Index (42028-3) 36.61 kg/m2 08/16/2024 11:02 PM Oxygen Saturation (28467-2) 91 % 08/17/2024 07:09 AM Oxygen Saturation (04102-1) 92 % 08/17/2024 04:24 PM Body Weight (11064-1) 271 [lb_av] Body Mass Index (41681-3) 36.75 kg/m2 08/17/2024 09:57 PM Oxygen Saturation (66120-2) 95 % 08/18/2024 07:05 AM Oxygen Saturation (82733-3) 96 % 08/18/2024 04:35 PM Body Weight (17238-1) 271.3 [lb_av ] Body Mass Index (68683-0) 36.79 kg/m2 08/18/2024 09:12 PM Oxygen Saturation (89334-2) 96 % 08/19/2024 04:19 PM Body Weight (53477-7) 271 [lb_av] Body Mass Index (71234-4) 36.75 kg/m2 08/19/2024 09:25 AM Oxygen Saturation (99591-5) 97 % 08/19/2024 09:03 PM Oxygen Saturation (70661-9) 95 % 08/20/2024 09:18 AM Oxygen Saturation (58890-5) 96 % 08/20/2024 03:10 PM Body Weight (93102-0) 271.5 [lb_av ] Body Mass Index (09404-8) 36.82 kg/m2 08/21/2024 09:39 AM Oxygen Saturation (32141-8) 96 % 08/21/2024 08:01 PM Oxygen Saturation (51828-7) 92 % 08/22/2024 07:27 AM Oxygen Saturation (41913-9) 94 % 08/22/2024 08:01 PM Oxygen Saturation (83965-2) 94 % 08/23/2024 07:25 AM Temperature (8310-5) 97.6 [degF] Respiratory Rate (9279-1) 18 /min Heart Rate (8867-4) 120 /min Blood Pressure Systolic (8480-6) 172 mm[Hg] Blood Pressure Diastolic (8462-4) 87 mm[Hg] 08/23/2024 07:24 AM Oxygen Saturation (92667-0) 96 % 08/23/2024 04:37 PM Body Weight (34248-4) 272 [lb_av] Body Mass Index (94775-0) 36.89 kg/m2 08/23/2024 09:59 PM Oxygen Saturation (56008-4) 98 % 08/24/2024 07:05 AM Oxygen Saturation (05393-5) 97 % 08/24/2024 11:31 AM Body Weight (47825-1) 266.4 [lb_av ] Body Mass Index (56298-6) 36.13 kg/m2 08/25/2024 03:24 AM Oxygen Saturation (44532-8) 95 % 08/25/2024 12:10 PM Oxygen Saturation (58451-4) 93 % 08/25/2024 01:50 PM Body Weight (13727-2) 274.4 [lb_av ] Body Mass Index (84082-9) 37.21 kg/m2 08/25/2024 10:54 PM Oxygen Saturation (41683-8) 95 % 08/26/2024 07:50 AM Body Weight (65847-8) 274.5 [lb_av ] Body Mass Index (15071-4) 37.22 kg/m2 08/26/2024 11:31 AM Oxygen Saturation (12812-0) 97 % 08/26/2024 10:24 PM Oxygen Saturation (29380-7) 95 % 08/27/2024 09:58 AM Oxygen Saturation (59193-8) 98 % 08/27/2024 11:46 AM Body Weight (22876-2) 273.4 [lb_av ] Body Mass Index (30649-1) 37.08 kg/m2 08/27/2024 09:39 PM Oxygen Saturation (85171-4) 95 % 08/28/2024 08:32 AM Oxygen Saturation (50089-7) 97 % 08/28/2024 10:01 AM Oxygen Saturation (12638-7) 97 % 08/28/2024 03:22 PM Body Weight (60368-6) 263.8 [lb_av ] Body Mass Index (46412-8) 35.77 kg/m2 08/29/2024 01:23 AM Oxygen Saturation (02304-0) 97 % 08/29/2024 03:42 PM Oxygen Saturation (88687-0) 97 % 08/29/2024 03:41 PM Oxygen Saturation (06335-3) 97 % Body Weight (03185-0) 275 [lb_av] Body Mass Index (64236-6) 37.29 kg/m2 08/30/2024 04:19 AM Oxygen Saturation (78522-5) 98 % Respiratory Rate (9279-1) 16 /min Heart Rate (8867-4) 115 /min Blood Pressure Systolic (8480-6) 144 mm[Hg] Blood Pressure Diastolic (8462-4) 83 mm[Hg] 08/30/2024 04:17 AM Temperature (8310-5) 97 [degF] 08/30/2024 05:52 AM Temperature (8310-5) 96.9 [degF] Oxygen Saturation (33756-4) 97 % Respiratory Rate (9279-1) 18 /min Heart Rate (8867-4) 105 /min Blood Pressure Systolic (8480-6) 127 mm[Hg] Blood Pressure Diastolic (8462-4) 84 mm[Hg] 08/30/2024 11:37 AM Body Weight (05953-8) 269.4 [lb_av ] Body Mass Index (83901-7) 36.53 kg/m2 08/30/2024 09:36 PM Oxygen Saturation (40350-2) 96 % 08/31/2024 06:59 AM Oxygen Saturation (44954-8) 97 % 08/31/2024 08:26 AM Body Weight (90462-2) 275.2 [lb_av ] Body Mass Index (39417-0) 37.32 kg/m2 08/31/2024 08:09 PM Oxygen Saturation (66517-2) 91 % 09/01/2024 06:55 AM Body Weight (86736-1) 273 [lb_av] Body Mass Index (46741-3) 37.02 kg/m2 09/01/2024 06:53 AM Oxygen Saturation (75448-7) 94 % 09/01/2024 11:08 PM Oxygen Saturation (12575-4) 92 % 09/02/2024 07:07 AM Oxygen Saturation (08402-3) 94 % 09/02/2024 01:53 PM Body Weight (45589-4) 270.6 [lb_av ] Body Mass Index (08783-7) 36.7 kg/m2 09/02/2024 09:51 PM Oxygen Saturation (63201-5) 96 % 09/03/2024 07:12 AM Oxygen Saturation (37499-4) 94 % 09/03/2024 09:46 AM Body Weight (36117-2) 274.4 [lb_av ] Body Mass Index (66523-7) 37.21 kg/m2 09/03/2024 07:17 PM Oxygen Saturation (91299-8) 95 % 09/04/2024 03:25 PM Body Weight (61005-9) 271.6 [lb_av ] Body Mass Index (62909-8) 36.83 kg/m2 09/04/2024 05:07 PM Oxygen Saturation (16656-9) 97 % 01/01/2025 11:49 AM Oxygen Saturation (35951-2) 94 % 01/02/2025 06:30 AM Body Weight (07016-9) 299.6 [lb_av ] Body Mass Index (37755-4) 40.63 kg/m2 12/31/2024 05:12 AM Body Weight (30469-4) 298.4 [lb_av ] Body Mass Index (17694-4) 40.47 kg/m2 12/16/2024 06:37 AM Body Weight (60212-7) 294.6 [lb_av ] Body Mass Index (65913-9) 39.95 kg/m2 01/01/2025 05:38 AM Oxygen Saturation (25382-5) 97 % 01/04/2025 07:22 AM Oxygen Saturation (83279-1) 99 % 01/04/2025 07:23 AM Body Weight (31859-0) 305.8 [lb_av ] Body Mass Index (39177-0) 41.47 kg/m2 12/20/2024 12:48 PM Temperature (8310-5) 98 [degF] Respiratory Rate (9279-1) 16 /min Heart Rate (8867-4) 100 /min Blood Pressure Systolic (8480-6) 120 mm[Hg] Blood Pressure Diastolic (8462-4) 70 mm[Hg] Body Weight (24468-7) 274.4 [lb_av] Body Mass Index (27275-3) 37.21 kg/m2 12/24/2024 05:45 AM Body Weight (63963-5) 301.4 [lb_av ] Body Mass Index (53209-2) 40.87 kg/m2 12/15/2024 08:38 AM Body Weight (07664-9) 295.4 [lb_av ] Body Mass Index (84472-6) 40.06 kg/m2 01/03/2025 02:43 PM Oxygen Saturation (10126-7) 96 % 12/31/2024 08:17 PM Oxygen Saturation (27441-3) 98 % 12/28/2024 07:17 AM Body Weight (25770-0) 299.6 [lb_av ] Body Mass Index (62394-9) 40.63 kg/m2 12/30/2024 11:55 AM Body Weight (51000-1) 301.6 [lb_av ] Body Mass Index (16453-0) 40.9 kg/m2 12/30/2024 05:48 AM Body Weight (63922-9) 313 [lb_av] Body Mass Index (86568-2) 42.45 kg/m2 12/08/2024 07:13 AM Body Weight (97952-8) 297.4 [lb_av ] Body Mass Index (59271-0) 40.33 kg/m2 12/27/2024 06:58 AM Body Weight (53347-1) 298.8 [lb_av ] Body Mass Index (40520-6) 40.52 kg/m2 12/04/2024 07:53 AM Body Weight (92681-7) 290.4 [lb_av ] Body Mass Index (32923-9) 39.38 kg/m2 12/25/2024 10:06 AM Body Weight (81550-0) 302 [lb_av] Body Mass Index (28387-0) 40.95 kg/m2 12/09/2024 07:12 AM Body Weight (40148-7) 294.4 [lb_av ] Body Mass Index (51229-7) 39.92 kg/m2 12/26/2024 06:02 AM Body Weight (81749-3) 302 [lb_av] Body Mass Index (09328-9) 40.95 kg/m2 12/21/2024 05:58 AM Body Weight (67916-6) 295.2 [lb_av ] Body Mass Index (24107-3) 40.03 kg/m2 12/02/2024 06:42 AM Body Weight (31221-4) 288 [lb_av] Body Mass Index (57772-3) 39.06 kg/m2 12/18/2024 09:12 AM Body Weight (91969-9) 288.2 [lb_av ] Body Mass Index (56244-4) 39.08 kg/m2 11/30/2024 07:19 AM Body Weight (27030-6) 285 [lb_av] Body Mass Index (13092-9) 38.65 kg/m2 01/03/2025 11:38 PM Oxygen Saturation (40389-2) 96 % 01/03/2025 11:42 AM Body Weight (93113-2) 295.6 [lb_av ] Body Mass Index (86638-2) 40.09 kg/m2 12/22/2024 07:02 AM Body Weight (27947-6) 301.2 [lb_av ] Body Mass Index (41129-4) 40.85 kg/m2 12/19/2024 06:07 AM Body Weight (08820-4) 277.6 [lb_av ] Body Mass Index (48063-1) 37.65 kg/m2 12/17/2024 06:40 AM Body Weight (55746-2) 298.6 [lb_av ] Body Mass Index (28550-0) 40.49 kg/m2 12/06/2024 04:45 PM Temperature (8310-5) 97.7 [degF] Respiratory Rate (9279-1) 18 /min Heart Rate (8867-4) 105 /min Blood Pressure Systolic (8480-6) 105 mm[Hg] Blood Pressure Diastolic (8462-4) 52 mm[Hg] 12/05/2024 06:11 AM Body Weight (36335-9) 293.2 [lb_av ] Body Mass Index (24133-5) 39.76 kg/m2 01/03/2025 02:44 PM Temperature (8310-5) 97.1 [degF] Respiratory Rate (9279-1) 20 /min Heart Rate (8867-4) 104 /min Blood Pressure Systolic (8480-6) 94 mm[Hg] Blood Pressure Diastolic (8462-4) 56 mm[Hg] 01/01/2025 05:22 AM Body Weight (68071-4) 299.6 [lb_av ] Body Mass Index (13320-8) 40.63 kg/m2 12/27/2024 10:43 AM Temperature (8310-5) 97.4 [degF] Respiratory Rate (9279-1) 18 /min Heart Rate (8867-4) 96 /min Blood Pressure Systolic (8480-6) 122 mm[Hg] Blood Pressure Diastolic (8462-4) 78 mm[Hg] 12/03/2024 06:29 AM Body Weight (07401-8) 290.6 [lb_av ] Body Mass Index (48702-8) 39.41 kg/m2 12/01/2024 11:30 AM Body Weight (81744-1) 294 [lb_av] Body Mass Index (30205-4) 39.87 kg/m2 12/14/2024 06:54 AM Body Weight (89227-2) 294.6 [lb_av ] Body Mass Index (83667-1) 39.95 kg/m2 12/10/2024 07:01 AM Body Weight (98303-6) 299.6 [lb_av ] Body Mass Index (41839-9) 40.63 kg/m2 12/23/2024 07:01 AM Body Weight (23344-8) 298.4 [lb_av ] Body Mass Index (44935-1) 40.47 kg/m2 12/07/2024 07:16 AM Body Weight (56244-6) 300 [lb_av] Body Mass Index (88058-5) 40.68 kg/m2 11/29/2024 07:50 AM Temperature (8310-5) 97.4 [degF] Respiratory Rate (9279-1) 18 /min Heart Rate (8867-4) 115 /min Blood Pressure Systolic (8480-6) 131 mm[Hg] Blood Pressure Diastolic (8462-4) 62 mm[Hg] 01/05/2025 07:09 AM Oxygen Saturation (07850-5) 96 % Body Weight (38592-0) 303 [lb_av] Body Mass Index (01351-1) 41.09 kg/m2 12/29/2024 11:54 AM Body Weight (48710-4) 310 [lb_av] Body Mass Index (11992-9) 42.04 kg/m2 12/11/2024 10:23 AM Body Weight (54237-4) 297 [lb_av] Body Mass Index (78145-0) 40.28 kg/m2 12/01/2024 05:27 AM Body Weight (83129-3) 277.6 [lb_av ] Body Mass Index (73172-3) 37.65 kg/m2 12/13/2024 07:19 AM Temperature (8310-5) 97.9 [degF] Respiratory Rate (9279-1) 16 /min Heart Rate (8867-4) 113 /min Blood Pressure Systolic (8480-6) 148 mm[Hg] Blood Pressure Diastolic (8462-4) 72 mm[Hg] Body Weight (28088-4) 288.8 [lb_av] Body Mass Index (63090-1) 39.16 kg/m2 01/04/2025 08:42 PM Oxygen Saturation (43775-6) 95 % 01/02/2025 11:27 PM Oxygen Saturation (48627-5) 98 % 12/12/2024 07:34 AM Body Weight (57345-3) 281 [lb_av] Body Mass Index (74660-0) 38.11 kg/m2 12/06/2024 11:58 AM Body Weight (25666-5) 298.2 [lb_av ] Body Mass Index (09143-5) 40.44 kg/m2 01/02/2025 08:57 AM Oxygen Saturation (26699-2) 95 % 11/27/2024 05:02 AM Body Weight (19160-9) 288 [lb_av] Body Mass Index (11745-2) 39.06 kg/m2 11/28/2024 06:48 AM Body Weight (46808-0) 285.4 [lb_av ] Body Mass Index (31374-4) 38.7 kg/m2 11/22/2024 06:30 AM Body Weight (83071-6) 287.4 [lb_av ] Body Mass Index (20745-2) 38.97 kg/m2 11/26/2024 06:21 AM Body Weight (74532-6) 284.4 [lb_av ] Body Mass Index (01511-0) 38.57 kg/m2 11/25/2024 05:10 AM Body Weight (46385-5) 288.4 [lb_av ] Body Mass Index (77874-7) 39.11 kg/m2 11/20/2024 11:16 AM Body Weight (39756-0) 285.2 [lb_av ] Body Mass Index (80700-0) 38.68 kg/m2 11/22/2024 11:41 AM Temperature (8310-5) 97.5 [degF] Respiratory Rate (9279-1) 20 /min Heart Rate (8867-4) 116 /min Blood Pressure Systolic (8480-6) 151 mm[Hg] Blood Pressure Diastolic (8462-4) 68 mm[Hg] 11/29/2024 07:04 AM Body Weight (50561-2) 280.6 [lb_av ] Body Mass Index (20680-7) 38.05 kg/m2 11/23/2024 07:05 AM Body Weight (38226-7) 284.6 [lb_av ] Body Mass Index (24272-1) 38.59 kg/m2 11/21/2024 06:29 AM Body Weight (00821-9) 284.4 [lb_av ] Body Mass Index (89078-4) 38.57 kg/m2 11/19/2024 11:26 AM Body Weight (13448-8) 286.5 [lb_av ] Body Mass Index (92855-7) 38.85 kg/m2 11/24/2024 07:14 AM Body Weight (72114-7) 284.6 [lb_av ] Body Mass Index (04679-6) 38.59 kg/m2 11/11/2024 06:57 AM Body Weight (54009-3) 284 [lb_av] Body Mass Index (66561-4) 38.51 kg/m2 11/02/2024 07:15 AM Body Weight (09021-1) 285.6 [lb_av ] Body Mass Index (44655-5) 38.73 kg/m2 11/08/2024 05:20 PM Temperature (8310-5) 98 [degF] Respiratory Rate (9279-1) 19 /min Heart Rate (8867-4) 96 /min Blood Pressure Systolic (8480-6) 132 mm[Hg] Blood Pressure Diastolic (8462-4) 81 mm[Hg] 11/16/2024 07:23 AM Body Weight (18073-2) 283.6 [lb_av ] Body Mass Index (54228-9) 38.46 kg/m2 11/05/2024 11:18 AM Body Weight (13870-8) 288 [lb_av] Body Mass Index (58388-9) 39.06 kg/m2 11/17/2024 06:06 AM Body Weight (76203-2) 283.4 [lb_av ] Body Mass Index (11310-3) 38.43 kg/m2 10/25/2024 08:08 AM Body Weight (08453-1) 285.6 [lb_av ] Body Mass Index (19120-6) 38.73 kg/m2 10/27/2024 08:42 AM Body Weight (95252-2) 285.6 [lb_av ] Body Mass Index (47205-9) 38.73 kg/m2 10/23/2024 09:44 AM Body Weight (35081-5) 287 [lb_av] Body Mass Index (84671-5) 38.92 kg/m2 11/03/2024 05:32 PM Body Weight (06082-5) 286 [lb_av] Body Mass Index (00042-1) 38.78 kg/m2 11/15/2024 11:25 AM Temperature (8310-5) 97.3 [degF] Respiratory Rate (9279-1) 17 /min Heart Rate (8867-4) 70 /min Blood Pressure Systolic (8480-6) 122 mm[Hg] Blood Pressure Diastolic (8462-4) 74 mm[Hg] 11/18/2024 06:34 AM Body Weight (09938-8) 283 [lb_av] Body Mass Index (47967-5) 38.38 kg/m2 10/28/2024 06:59 AM Body Weight (44327-9) 287.2 [lb_av ] Body Mass Index (03008-3) 38.95 kg/m2 10/17/2024 11:07 AM Body Weight (54419-4) 287.6 [lb_av ] Body Mass Index (72575-8) 39 kg/m2 11/10/2024 06:51 AM Body Weight (77779-6) 283 [lb_av] Body Mass Index (47899-9) 38.38 kg/m2 11/14/2024 07:07 AM Body Weight (31851-5) 280.6 [lb_av ] Body Mass Index (19422-1) 38.05 kg/m2 10/31/2024 07:30 AM Body Weight (70510-4) 276.2 [lb_av ] Body Mass Index (70593-4) 37.46 kg/m2 10/24/2024 09:36 AM Body Weight (01577-3) 287.6 [lb_av ] Body Mass Index (07888-6) 39 kg/m2 10/09/2024 07:53 AM Body Weight (71145-0) 276.6 [lb_av ] Body Mass Index (71001-7) 37.51 kg/m2 11/09/2024 06:52 AM Body Weight (19431-6) 285.6 [lb_av ] Body Mass Index (92382-2) 38.73 kg/m2 11/03/2024 05:52 PM Body Weight (38037-5) 286 [lb_av] Body Mass Index (65650-0) 38.78 kg/m2 11/15/2024 07:34 AM Body Weight (33372-4) 289 [lb_av] Body Mass Index (32416-0) 39.19 kg/m2 10/19/2024 07:43 AM Body Weight (88278-5) 284 [lb_av] Body Mass Index (18811-4) 38.51 kg/m2 10/18/2024 07:54 AM Body Weight (38919-1) 290 [lb_av] Body Mass Index (28074-8) 39.33 kg/m2 10/08/2024 07:35 AM Body Weight (75451-2) 279 [lb_av] Body Mass Index (15522-2) 37.84 kg/m2 10/26/2024 02:47 PM Body Weight (17779-2) 286.2 [lb_av ] Body Mass Index (08328-5) 38.81 kg/m2 10/13/2024 11:08 AM Body Weight (07326-7) 282 [lb_av] Body Mass Index (05736-0) 38.24 kg/m2 10/11/2024 08:15 AM Body Weight (53395-7) 282.2 [lb_av ] Body Mass Index (85700-7) 38.27 kg/m2 11/07/2024 08:28 AM Body Weight (76227-7) 288 [lb_av] Body Mass Index (48677-4) 39.06 kg/m2 10/29/2024 06:59 AM Body Weight (79074-8) 282.4 [lb_av ] Body Mass Index (45420-7) 38.3 kg/m2 10/20/2024 08:25 AM Body Weight (80720-1) 287.6 [lb_av ] Body Mass Index (80088-7) 39 kg/m2 10/15/2024 12:36 PM Body Weight (52970-3) 286.6 [lb_av ] Body Mass Index (79778-4) 38.87 kg/m2 11/12/2024 06:57 AM Body Weight (64544-4) 285 [lb_av] Body Mass Index (38508-0) 38.65 kg/m2 11/06/2024 08:21 AM Body Weight (82072-7) 286.6 [lb_av ] Body Mass Index (99290-2) 38.87 kg/m2 10/30/2024 09:17 AM Body Weight (67680-2) 284.8 [lb_av ] Body Mass Index (02903-3) 38.62 kg/m2 11/08/2024 06:19 AM Body Weight (78489-6) 285.6 [lb_av ] Body Mass Index (44952-8) 38.73 kg/m2 11/04/2024 05:46 AM Body Weight (53392-3) 283 [lb_av] Body Mass Index (57377-6) 38.38 kg/m2 10/22/2024 11:33 AM Body Weight (14883-5) 279.2 [lb_av ] Body Mass Index (89899-5) 37.86 kg/m2 11/13/2024 08:24 AM Body Weight (54007-9) 286.4 [lb_av ] Body Mass Index (13905-7) 38.84 kg/m2 10/21/2024 08:55 AM Body Weight (53632-7) 285.4 [lb_av ] Body Mass Index (94766-4) 38.7 kg/m2 10/16/2024 08:32 AM Body Weight (03423-8) 288.4 [lb_av ] Body Mass Index (51806-2) 39.11 kg/m2 10/12/2024 09:27 AM Body Weight (35591-2) 281.4 [lb_av ] Body Mass Index (95484-3) 38.16 kg/m2 10/10/2024 10:20 AM Body Weight (82552-5) 175 [lb_av] Body Mass Index (82520-9) 23.73 kg/m2 10/14/2024 08:23 AM Body Weight (62629-8) 277.4 [lb_av ] Body Mass Index (05074-4) 37.62 kg/m2 11/01/2024 01:35 PM Body Weight (10281-4) 284.4 [lb_av ] Body Mass Index (10427-8) 38.57 kg/m2 11/01/2024 08:39 AM Temperature (8310-5) 97.1 [degF] Respiratory Rate (9279-1) 18 /min Heart Rate (8867-4) 119 /min Blood Pressure Systolic (8480-6) 116 mm[Hg] Blood Pressure Diastolic (8462-4) 75 mm[Hg] 01/05/2025 08:13 PM Oxygen Saturation (51147-0) 98 % 01/06/2025 07:03 AM Oxygen Saturation (47699-8) 97 % 01/06/2025 07:04 AM Body Weight (60490-7) 319 [lb_av] Body Mass Index (27978-3) 43.26 kg/m2 01/06/2025 08:54 PM Oxygen Saturation (05611-2) 99 % 01/07/2025 07:10 AM Oxygen Saturation (91943-5) 98 % Body Weight (87130-8) 309 [lb_av] Body Mass Index (17330-5) 41.9 kg/m2 01/07/2025 07:59 PM Oxygen Saturation (01953-3) 97 % 01/08/2025 08:37 AM Oxygen Saturation (78420-1) 97 % Body Weight (96144-1) 322 [lb_av] Body Mass Index (20056-4) 43.67 kg/m2 01/08/2025 06:15 PM Oxygen Saturation (72945-3) 94 % 01/09/2025 07:16 AM Body Weight (71921-6) 314.6 [lb_av ] Body Mass Index (55132-5) 42.66 kg/m2 01/09/2025 07:15 AM Oxygen Saturation (09313-8) 99 % 01/10/2025 05:37 AM Body Weight (91051-3) 324 [lb_av] Body Mass Index (13046-8) 43.94 kg/m2 01/10/2025 07:28 AM Temperature (8310-5) 98.4 [degF] Oxygen Saturation (37497-1) 92 % Respiratory Rate (9279-1) 18 /min Heart Rate (8867-4) 112 /min Blood Pressure Systolic (8480-6) 127 mm[Hg] Blood Pressure Diastolic (8462-4) 52 mm[Hg] 01/10/2025 08:23 PM Oxygen Saturation (31757-7) 96 % 01/11/2025 07:26 AM Oxygen Saturation (60761-6) 98 % Body Weight (31721-7) 320.6 [lb_av] Body Mass Index (33343-7) 43.48 kg/m2 01/11/2025 06:34 PM Oxygen Saturation (06062-5) 97 % 01/12/2025 07:12 AM Oxygen Saturation (97686-1) 99 % Body Weight (56899-9) 334 [lb_av] Body Mass Index (75480-4) 45.29 kg/m2 01/12/2025 11:30 PM Oxygen Saturation (09108-5) 94 % 01/13/2025 05:17 AM Body Weight (75499-9) 329.2 [lb_av ] Body Mass Index (55562-8) 44.64 kg/m2 01/13/2025 10:06 AM Oxygen Saturation (78095-4) 96 % 01/14/2025 12:26 AM Oxygen Saturation (00876-6) 98 % 01/14/2025 04:17 AM Oxygen Saturation (74477-1) 95 % 01/14/2025 11:54 AM Oxygen Saturation (22920-3) 95 % 01/14/2025 11:53 AM Oxygen Saturation (04637-4) 95 % 01/14/2025 11:27 AM Body Weight (33626-4) 330 [lb_av] Body Mass Index (46604-2) 44.75 kg/m2 01/14/2025 09:29 PM Oxygen Saturation (52078-5) 95 % 01/15/2025 04:13 AM Oxygen Saturation (26286-6) 94 % 01/15/2025 09:37 AM Body Weight (17700-5) 329.8 [lb_av ] Body Mass Index (72817-8) 44.72 kg/m2 01/15/2025 09:36 AM Oxygen Saturation (80762-3) 94 % 01/15/2025 08:23 PM Oxygen Saturation (44206-9) 98 % 01/16/2025 07:41 AM Oxygen Saturation (26958-0) 99 % 01/16/2025 06:40 AM Body Weight (67964-2) 326.6 [lb_av ] Body Mass Index (47470-1) 44.29 kg/m2 01/17/2025 08:04 AM Body Weight (70190-8) 336 [lb_av] Body Mass Index (33557-2) 45.56 kg/m2 01/17/2025 12:21 PM Temperature (8310-5) 98.2 [degF] Oxygen Saturation (00518-9) 97 % Respiratory Rate (9279-1) 20 /min Heart Rate (8867-4) 98 /min Blood Pressure Systolic (8480-6) 130 mm[Hg] Blood Pressure Diastolic (8462-4) 62 mm[Hg] 01/17/2025 10:29 PM Oxygen Saturation (71585-8) 98 % 01/18/2025 07:13 AM Oxygen Saturation (31077-9) 97 % 01/18/2025 07:14 AM Body Weight (60943-4) 335.8 [lb_av ] Body Mass Index (43973-8) 45.54 kg/m2 01/18/2025 07:26 PM Oxygen Saturation (95395-2) 97 % 01/19/2025 06:55 AM Oxygen Saturation (84625-3) 99 % 01/19/2025 08:47 AM Body Weight (03801-6) 337.8 [lb_av ] Body Mass Index (52771-4) 45.81 kg/m2 01/20/2025 07:29 AM Oxygen Saturation (49260-0) 97 % Body Weight (90213-5) 338.6 [lb_av] Body Mass Index (72400-7) 45.92 kg/m2 01/20/2025 08:16 PM Temperature (8310-5) 98.7 [degF] Oxygen Saturation (18669-9) 92 % Respiratory Rate (9279-1) 25 /min Heart Rate (8867-4) 90 /min Blood Pressure Systolic (8480-6) 126 mm[Hg] Blood Pressure Diastolic (8462-4) 76 mm[Hg] 01/21/2025 05:16 AM Body Weight (38053-5) 352.8 [lb_av ] Body Mass Index (51753-5) 47.84 kg/m2 01/21/2025 07:02 AM Oxygen Saturation (50521-7) 95 % 01/22/2025 12:56 AM Oxygen Saturation (25912-4) 92 % 01/22/2025 02:18 PM Oxygen Saturation (44593-4) 96 % Body Weight (44721-4) 352.6 [lb_av] Body Mass Index (88064-3) 47.82 kg/m2 01/23/2025 04:22 AM Oxygen Saturation (50151-2) 98 % 01/23/2025 07:28 AM Oxygen Saturation (22865-8) 91 % Body Weight (06559-7) 346.6 [lb_av] Body Mass Index (01652-3) 47 kg/m2 01/23/2025 10:46 PM Oxygen Saturation (27654-7) 94 % 01/24/2025 07:35 AM Oxygen Saturation (05410-9) 97 % 01/24/2025 07:05 AM Body Weight (23803-6) 338.6 [lb_av ] Body Mass Index (11045-6) 45.92 kg/m2 01/24/2025 07:39 AM Temperature (8310-5) 98.2 [degF] Respiratory Rate (9279-1) 20 /min Heart Rate (8867-4) 122 /min Blood Pressure Systolic (8480-6) 126 mm[Hg] Blood Pressure Diastolic (8462-4) 64 mm[Hg] 01/24/2025 07:36 PM Oxygen Saturation (94542-2) 95 % 01/25/2025 07:00 AM Body Weight (86249-9) 334.6 [lb_av ] Body Mass Index (48202-8) 45.37 kg/m2 01/25/2025 09:53 AM Oxygen Saturation (43728-6) 98 % 01/25/2025 06:43 PM Oxygen Saturation (01708-9) 97 % 01/26/2025 06:58 AM Oxygen Saturation (67280-8) 93 % 01/26/2025 07:00 AM Body Weight (00335-9) 345.6 [lb_av ] Body Mass Index (83021-5) 46.87 kg/m2 01/26/2025 07:36 PM Oxygen Saturation (22975-0) 95 % 01/27/2025 04:36 AM Body Weight (61980-7) 337.4 [lb_av ] Body Mass Index (30369-7) 45.75 kg/m2 01/27/2025 07:40 AM Oxygen Saturation (14548-1) 92 % 01/27/2025 08:33 PM Oxygen Saturation (57267-3) 95 % 01/28/2025 06:11 AM Oxygen Saturation (85352-7) 99 % 01/28/2025 04:46 AM Body Weight (14993-2) 350.6 [lb_av ] Body Mass Index (06333-4) 47.54 kg/m2 01/28/2025 07:59 PM Oxygen Saturation (77989-1) 99 % 01/29/2025 05:00 AM Body Weight (49913-0) 340.6 [lb_av ] Body Mass Index (28085-7) 46.19 kg/m2 01/29/2025 06:35 AM Oxygen Saturation (78178-7) 98 % 01/30/2025 07:56 AM Oxygen Saturation (51225-9) 91 % 01/30/2025 06:04 AM Body Weight (11128-5) 346.8 [lb_av ] Body Mass Index (62010-4) 47.03 kg/m2 01/30/2025 02:50 AM Oxygen Saturation (98490-2) 90 % 01/30/2025 06:52 PM Oxygen Saturation (52464-4) 94 % 01/31/2025 09:21 AM Oxygen Saturation (99664-0) 99 % Body Weight (89141-1) 351.6 [lb_av] Body Mass Index (75897-9) 47.68 kg/m2 01/31/2025 09:22 AM Temperature (8310-5) 98.2 [degF] Respiratory Rate (9279-1) 20 /min Heart Rate (8867-4) 92 /min Blood Pressure Systolic (8480-6) 102 mm[Hg] Blood Pressure Diastolic (8462-4) 61 mm[Hg] 01/31/2025 11:40 PM Oxygen Saturation (81051-1) 90 % 02/01/2025 07:21 AM Oxygen Saturation (83119-8) 96 % Body Weight (09921-9) 338 [lb_av] Body Mass Index (18747-4) 45.84 kg/m2 02/02/2025 03:24 AM Oxygen Saturation (61794-1) 97 % 02/02/2025 06:51 AM Oxygen Saturation (55159-2) 98 % Body Weight (82532-7) 356 [lb_av] Body Mass Index (41878-7) 48.28 kg/m2 02/02/2025 08:19 PM Oxygen Saturation (65196-4) 95 % 02/03/2025 07:19 AM Oxygen Saturation (60564-7) 96 % Body Weight (27797-3) 342.2 [lb_av] Body Mass Index (46626-5) 46.41 kg/m2 02/03/2025 08:44 PM Oxygen Saturation (00990-8) 95 % 02/04/2025 06:45 AM Oxygen Saturation (68234-4) 97 % Body Weight (57583-9) 359.2 [lb_av] Body Mass Index (56286-9) 48.71 kg/m2 02/04/2025 07:51 PM Oxygen Saturation (53108-0) 95 % 02/04/2025 07:50 PM Oxygen Saturation (53336-1) 95 % 02/05/2025 05:16 AM Body Weight (25559-7) 354.6 [lb_av ] Body Mass Index (68366-2) 48.09 kg/m2 02/05/2025 12:12 PM Oxygen Saturation (87650-6) 93 % 02/05/2025 08:15 PM Oxygen Saturation (88006-3) 97 % 02/06/2025 06:50 AM Oxygen Saturation (58742-1) 97 % 02/06/2025 03:26 PM Body Weight (97365-7) 359 [lb_av] Body Mass Index (00806-2) 48.68 kg/m2 02/06/2025 07:36 PM Oxygen Saturation (34780-5) 99 % 02/07/2025 07:44 AM Temperature (8310-5) 98.5 [degF] Oxygen Saturation (36712-0) 93 % Respiratory Rate (9279-1) 20 /min Heart Rate (8867-4) 74 /min Blood Pressure Systolic (8480-6) 143 mm[Hg] Blood Pressure Diastolic (8462-4) 72 mm[Hg] 02/07/2025 07:43 AM Oxygen Saturation (85457-3) 98 % Body Weight (49228-7) 364.6 [lb_av] Body Mass Index (61135-1) 49.44 kg/m2 02/07/2025 09:55 PM Oxygen Saturation (81338-6) 95 % 02/08/2025 05:03 AM Body Weight (02210-6) 369.2 [lb_av ] Body Mass Index (53183-5) 50.07 kg/m2 02/08/2025 07:12 AM Temperature (8310-5) 98 [degF] 02/08/2025 07:11 AM Oxygen Saturation (59931-5) 96 % 02/08/2025 07:04 PM Oxygen Saturation (14983-3) 98 % 02/09/2025 11:00 AM Oxygen Saturation (99731-0) 94 % 02/09/2025 11:49 AM Temperature (8310-5) 97.1 [degF] Oxygen Saturation (25354-5) 86 % Respiratory Rate (9279-1) 28 /min Heart Rate (8867-4) 120 /min Blood Pressure Systolic (8480-6) 152 mm[Hg] Blood Pressure Diastolic (8462-4) 102 mm[Hg] 02/09/2025 07:47 AM Body Weight (62477-2) 375 [lb_av] Body Mass Index (17994-1) 50.85 kg/m2 02/11/2025 05:53 PM Temperature (8310-5) 98.2 [degF] Oxygen Saturation (45793-6) 92 % Respiratory Rate (9279-1) 16 /min Heart Rate (8867-4) 112 /min Blood Pressure Systolic (8480-6) 160 mm[Hg] Blood Pressure Diastolic (8462-4) 85 mm[Hg] 02/11/2025 11:32 PM Oxygen Saturation (86880-6) 97 % 02/11/2025 05:37 PM Oxygen Saturation (88734-1) 92 % 02/12/2025 07:25 AM Oxygen Saturation (59655-6) 97 % 02/12/2025 07:33 AM Body Weight (42106-3) 381.4 [lb_av ] Body Mass Index (73344-2) 51.72 kg/m2 02/13/2025 12:26 AM Oxygen Saturation (86786-7) 94 % 02/13/2025 07:44 AM Oxygen Saturation (36818-9) 100 % Body Weight (49462-8) 382.2 [lb_av] Body Mass Index (00366-2) 51.83 kg/m2 02/13/2025 02:27 PM Temperature (8310-5) 98.8 [degF] 02/13/2025 02:24 PM Temperature (8310-5) 98.8 [degF] 02/14/2025 07:35 AM Body Weight (71205-6) 390.2 [lb_av ] Body Mass Index (19073-6) 52.91 kg/m2 02/14/2025 08:21 AM Oxygen Saturation (96484-6) 100 % 02/14/2025 08:22 AM Temperature (8310-5) 99 [degF] Respiratory Rate (9279-1) 20 /min Heart Rate (8867-4) 122 /min Blood Pressure Systolic (8480-6) 153 mm[Hg] Blood Pressure Diastolic (8462-4) 74 mm[Hg] 02/14/2025 08:56 PM Oxygen Saturation (71712-2) 94 % 02/15/2025 07:31 AM Body Weight (15189-9) 378.2 [lb_av ] Body Mass Index (14359-2) 51.29 kg/m2 02/15/2025 08:27 AM Oxygen Saturation (58668-8) 98 % 02/16/2025 12:28 AM Oxygen Saturation (64271-9) 95 % 02/16/2025 07:59 AM Oxygen Saturation (66919-6) 98 % Body Weight (41877-7) 376.4 [lb_av] Body Mass Index (93835-4) 51.04 kg/m2 02/17/2025 12:50 AM Oxygen Saturation (03385-2) 95 % 02/17/2025 07:47 AM Oxygen Saturation (64272-8) 96 % 02/17/2025 06:25 AM Body Weight (23096-7) 383.2 [lb_av ] Body Mass Index (65317-1) 51.97 kg/m2 02/17/2025 11:45 PM Oxygen Saturation (79945-9) 95 % 02/18/2025 07:52 AM Body Weight (61784-0) 380.4 [lb_av ] Body Mass Index (23537-6) 51.59 kg/m2 02/18/2025 11:13 AM Oxygen Saturation (25186-4) 95 % 02/18/2025 11:18 PM Oxygen Saturation (49499-7) 96 % 02/19/2025 07:58 PM Oxygen Saturation (86658-7) 96 % 02/19/2025 05:34 PM Oxygen Saturation (87707-4) 97 % 02/19/2025 05:30 PM Body Weight (90345-8) 394.6 [lb_av ] Body Mass Index (46047-1) 53.51 kg/m2 02/20/2025 08:10 AM Oxygen Saturation (54529-1) 93 % 02/20/2025 06:10 AM Body Weight (17766-2) 390 [lb_av] Body Mass Index (14150-8) 52.89 kg/m2 02/21/2025 02:56 AM Oxygen Saturation (03722-2) 93 % 02/21/2025 09:39 AM Temperature (8310-5) 97.5 [degF] Respiratory Rate (9279-1) 18 /min Heart Rate (8867-4) 107 /min Blood Pressure Systolic (8480-6) 129 mm[Hg] Blood Pressure Diastolic (8462-4) 53 mm[Hg] 02/21/2025 09:38 AM Oxygen Saturation (21786-5) 98 % Body Weight (91891-9) 386 [lb_av] Body Mass Index (72127-7) 52.35 kg/m2 02/21/2025 07:02 PM Oxygen Saturation (75307-4) 91 % 02/22/2025 07:06 AM Oxygen Saturation (27404-5) 98 % Body Weight (75907-2) 373.4 [lb_av] Body Mass Index (34883-9) 50.64 kg/m2 02/23/2025 02:21 AM Oxygen Saturation (18898-3) 94 % 02/23/2025 06:12 AM Body Weight (11089-3) 363.6 [lb_av ] Body Mass Index (54619-6) 49.31 kg/m2 02/23/2025 10:02 AM Oxygen Saturation (10953-6) 92 % 02/23/2025 11:36 PM Oxygen Saturation (47993-9) 96 % 02/24/2025 07:29 AM Oxygen Saturation (89058-2) 97 % 02/24/2025 06:13 AM Body Weight (34490-6) 354.2 [lb_av ] Body Mass Index (21788-9) 48.03 kg/m2 02/24/2025 11:07 PM Oxygen Saturation (00875-3) 92 % 02/25/2025 07:33 AM Body Weight (02176-2) 320.6 [lb_av ] Body Mass Index (29137-3) 43.48 kg/m2 02/25/2025 07:44 AM Oxygen Saturation (34466-6) 98 % 02/25/2025 08:33 PM Oxygen Saturation (98856-8) 94 % 02/26/2025 06:21 AM Body Weight (78332-3) 324 [lb_av] Body Mass Index (65360-5) 43.94 kg/m2 02/26/2025 10:41 AM Oxygen Saturation (54264-1) 95 % 02/26/2025 07:24 PM Respiratory Rate (9279-1) 18 /min Heart Rate (8867-4) 109 /min Blood Pressure Systolic (8480-6) 106 mm[Hg] Blood Pressure Diastolic (8462-4) 74 mm[Hg] 02/26/2025 07:23 PM Temperature (8310-5) 97 [degF] Oxygen Saturation (39826-1) 94 % 02/27/2025 06:03 AM Body Weight (99633-2) 328.6 [lb_av ] Body Mass Index (70633-5) 44.56 kg/m2 02/27/2025 07:47 AM Oxygen Saturation (80470-3) 92 % 02/28/2025 12:16 AM Oxygen Saturation (06748-5) 95 % 02/28/2025 05:04 PM Temperature (8310-5) 97.8 [degF] Oxygen Saturation (37950-9) 97 % Respiratory Rate (9279-1) 20 /min Heart Rate (8867-4) 69 /min Blood Pressure Systolic (8480-6) 108 mm[Hg] Blood Pressure Diastolic (8462-4) 56 mm[Hg] 02/28/2025 12:51 PM Oxygen Saturation (85289-7) 94 % 02/28/2025 06:32 PM Oxygen Saturation (72552-3) 94 % 02/28/2025 11:16 PM Body Weight (44891-3) 322 [lb_av] Body Mass Index (40070-0) 43.67 kg/m2 03/01/2025 07:37 AM Oxygen Saturation (86048-0) 96 % 03/01/2025 05:24 AM Body Weight (42105-4) 325.2 [lb_av ] Body Mass Index (38007-2) 44.1 kg/m2 03/01/2025 11:36 PM Oxygen Saturation (21327-3) 95 % 03/02/2025 07:01 AM Oxygen Saturation (05656-6) 98 % Body Weight (09348-1) 326 [lb_av] Body Mass Index (67539-9) 44.21 kg/m2 03/02/2025 11:23 PM Oxygen Saturation (43693-1) 96 % 03/03/2025 07:26 AM Oxygen Saturation (56932-4) 98 % 03/03/2025 10:10 AM Body Weight (79236-0) 316.6 [lb_av ] Body Mass Index (58813-3) 42.93 kg/m2 03/04/2025 07:10 AM Oxygen Saturation (55920-6) 99 % 03/03/2025 09:53 PM Oxygen Saturation (02625-1) 96 % 03/04/2025 07:18 AM Body Weight (42544-8) 308 [lb_av] Body Mass Index (94823-7) 41.77 kg/m2 03/03/2025 11:57 PM Oxygen Saturation (59172-2) 97 % 03/04/2025 09:00 PM Oxygen Saturation (61602-4) 95 % 03/05/2025 03:42 PM Oxygen Saturation (45872-0) 93 % Body Weight (96197-6) 303.2 [lb_av] Body Mass Index (57566-9) 41.12 kg/m2 03/05/2025 08:10 PM Oxygen Saturation (55043-0) 99 % 03/06/2025 07:13 AM Oxygen Saturation (15472-0) 98 % 03/06/2025 06:55 AM Body Weight (49282-0) 298.2 [lb_av ] Body Mass Index (23272-3) 40.44 kg/m2 03/07/2025 04:20 AM Oxygen Saturation (07430-9) 96 % 03/07/2025 07:05 AM Body Weight (12807-1) 295 [lb_av] Body Mass Index (60421-8) 40 kg/m2 03/07/2025 07:55 AM Temperature (8310-5) 97.7 [degF] Oxygen Saturation (15254-9) 97 % Respiratory Rate (9279-1) 16 /min Heart Rate (8867-4) 116 /min Blood Pressure Systolic (8480-6) 123 mm[Hg] Blood Pressure Diastolic (8462-4) 52 mm[Hg] 03/07/2025 06:44 PM Oxygen Saturation (20907-3) 96 % 03/08/2025 06:54 AM Oxygen Saturation (60851-0) 97 % Body Weight (05230-5) 295.2 [lb_av] Body Mass Index (87047-1) 40.03 kg/m2 03/08/2025 06:26 PM Oxygen Saturation (06553-3) 98 % 03/09/2025 07:48 AM Oxygen Saturation (85084-4) 99 % 03/09/2025 06:22 AM Body Weight (15609-3) 291 [lb_av] Body Mass Index (92824-7) 39.46 kg/m2 03/09/2025 07:01 PM Oxygen Saturation (38109-9) 98 % 03/10/2025 06:25 AM Body Weight (75363-3) 294 [lb_av] Body Mass Index (24454-2) 39.87 kg/m2 03/10/2025 01:24 PM Oxygen Saturation (43109-7) 98 % 03/10/2025 08:32 PM Oxygen Saturation (39148-1) 95 % 03/11/2025 03:59 AM Body Weight (85122-1) 292.2 [lb_av ] Body Mass Index (38280-1) 39.63 kg/m2 03/11/2025 09:17 AM Oxygen Saturation (10891-2) 97 % 03/11/2025 10:49 PM Oxygen Saturation (25002-5) 95 % 03/12/2025 09:08 AM Oxygen Saturation (64515-2) 95 % 03/12/2025 11:47 AM Body Weight (38848-6) 282.6 [lb_av ] Body Mass Index (53666-3) 38.32 kg/m2 03/12/2025 09:05 PM Oxygen Saturation (53744-9) 95 % Social History No smoking Hx information available Encounters Type CPT Code Date Location Provider Indication s encounter report 02/24/2024 05:2 5 PM - 02/09/2025 11:54 AM Chris Parker DO 01 Advance Directives Directive Description Verification Date Supporting Document(s) Other Directive
--- OUTSIDE RECORDS SUMMARY | 2025-03-13 06:01 | XMS_ITS | Encounter Summary ---
Author Organization [facility] Address [address] [place] [address] Care Team Providers Care Vp Training Name Role Phone Cuba Solano MD Primary Care Provider [phone] Encounter Details Date Type Department Care Team (Latest Contact Info) Description 12/02/2005 Outpatient Historical [facility] Angelica [facility] [address] [address] Huey Upton Jr., MD [address] [place] [phone] [facility] [address] [place] [address] DM w/o Complication Type II (CMS/HCC) (Primary Dx); Other and Unspecified Hyperlipidemia; Unspecified Essential Hypertension; Pain in Joint, Shoulder Region Social History Tobacco Use Types Packs/Day Years Used Date Smoking Tobacco: Never Assessed Sex and Gender Information Value Date Recorded Sex Assigned at Not on file Legal Sex Male 2:49 AM [employer] Gender Identity Not on file Sexual [...] region documented in this encounter Care Teams Vp Training Relationship Specialty Start Date End Date Cuba Solano MD PCP - General 07/11/09 documented as of this encounter
--- OUTSIDE RECORDS SUMMARY | 2025-03-13 06:01 | XMS_ITS | Encounter Summary ---
Author Organization [facility] Address [address] [place] [address] Care Team Providers Care Wafer Production Worker Name Role Phone Cuba Solano MD Primary Care Provider +1 -[phone] Encounter Details Date Type Department Care Team (Latest Contact Info) Description 12/26/2004 Outpatient Historical [facility] Family Medicine Angelica [facility] [address] [address] Huey Upton Jr., MD [address] [place] [address] 248 [facility] 140 [place] [address] IMPETIGO (Primary Dx) Social History [...] Primary documented in this encounter Care Teams Wafer Production Worker Relationship Specialty Start Date End Date Cuba Solano MD PCP - General 07/11/09 documented as of this encounter
--- OUTSIDE RECORDS SUMMARY | 2025-03-13 06:01 | XMS_ITS | Encounter Summary ---
Author Organization [facility] Address [address] [place] [address] Care Team Providers Care Manager Books Name Role Phone Cuba Solano MD Primary Care Provider +1 -[phone] Encounter Details Date Type Department Care Team (Latest Contact Info) Description 07/18/2004 Outpatient Historical [facility] Family Medicine Angelica [place] [address] [address] Keyona Mccloud, LUCIEN NO ADDRESS ON FILE ORAL APHTHAE (Primary Dx); DYSPHAGIA Social History Tobacco Use Types Packs/Day Years Used Date Smoking Tobacco: Never Assessed Sex and Gender Information Value Date Recorded Sex Assigned at Not on file Legal Sex 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
--- OUTSIDE RECORDS SUMMARY | 2025-03-13 06:01 | XMS_ITS | Encounter Summary ---
Author Organization [facility] Address [address] [place] [address] Care Team Providers Care Flosser Name Role Phone Cuba Solano MD Primary Care Provider +1 [phone] Encounter Details Date Type Department Care Team (Latest Contact Info) Description 11/21/2004 Outpatient Historical [facility] Family Medicine Angelica [place] [address]82 [address] [address] Keyona Mccloud, LUCIEN NO ADDRESS ON FILE Pain in limb (Primary Dx) Social History Tobacco Use Types Packs/Day Years Used Date Smoking Tobacco: Never Assessed Sex and Gender Information Value Date Recorded Sex Assigned at Not on file 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
--- OUTSIDE RECORDS SUMMARY | 2025-03-13 06:01 | XMS_ITS | Encounter Summary ---
Author Organization [facility] Address [address] [place] [address] Care Team Providers Care Incising Machine Operator Name Role Phone Cuba Solano MD Primary Care Provider +1 [phone] Encounter Details Date Type Department Care Team (Latest Contact Info) Description 06/26/2004 Outpatient Historical [facility] Family Medicine Angelica [place] [id number] [address] Keyona Mccloud, DESTINATION IMAGINATION COORDINATOR NO ADDRESS ON FILE ALLERGY, UNSPECIFIED (Primary Dx) Social History Tobacco Use Types Packs/Day Years Used Date Smoking Tobacco: Never Assessed Sex and Gender Information Value Date Recorded Sex Assigned at Not on file Legal 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
--- OUTSIDE RECORDS SUMMARY | 2025-03-13 06:01 | XMS_ITS | Encounter Summary ---
Author Organization [facility] Address [address] [place] [address] Care Team Providers Care Infectious Disease Physician Name Role Phone Cuba Solano MD Primary Care Provider +1 -[phone] Encounter Details Date Type Department Care Team (Latest Contact Info) Description 11/25/2005 Outpatient Historical [facility] 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
--- OUTSIDE RECORDS SUMMARY | 2025-03-13 06:01 | XMS_ITS | Encounter Summary ---
Author Organization [facility] Address [address] [place] [address] Care Team Providers Care Utilization Management Manager Name Role Phone Cuba Soalno MD Primary Care Provider +1 [phone] Encounter Details Date Type Department Care Team (Latest Contact Info) Description 05/25/2006 Outpatient Historical [facility] 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
--- OUTSIDE RECORDS SUMMARY | 2025-03-13 06:01 | XMS_ITS | Encounter Summary ---
Author Organization [facility] Address [address] [place] [address] Care Team Providers Care Cad Librarian Name Role Phone Cuba Solano MD Primary Care Provider +1 [phone] Encounter Details Date Type Department Care Team (Latest Contact Info) Description 06/28/2006 Outpatient Historical [facility] Family Medicine Angelica [place] [address] [address] Keyona Mccloud, LUCIEN NO ADDRESS ON FILE Unspecified Otitis Media (Primary Dx); Acute Sinusitis, Unspecified Social History Tobacco Use Types Packs/Day Years Used Date Smoking Tobacco: Never Assessed Sex and Gender Information Value Date Recorded Sex Assigned at Not on file Legal 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
--- OUTSIDE RECORDS SUMMARY | 2025-03-13 06:01 | XMS_ITS | Encounter Summary ---
Author Organization [facility] Address [address] [place] [address] Care Team Providers Care Rn Labor And Delivery Name Role Phone Cuba Solano MD Primary Care Provider +1 [phone] Encounter Details Date Type Department Care Team (Latest Contact Info) Description 12/29/2005 Outpatient Historical [facility] [address] [facility] [address] [place] [address] Ash Lopez III, MD [address] [place] [address] Other Affections of Shoulder Region, not Elsewhere Classified (Primary Dx) Social History Tobacco Use Types Packs/Day Years Used Date Smoking Tobacco: Never Assessed Sex and Gender Information Value Date Recorded Sex Assigned at Not on file Legal 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 Gender Identity Not on file Sexual [...] INTERFACE SYSTEM 12/29/2005 9:45 AM CDT Result [facility] Ash Lopez III, MD POINT OF CARE TESTING Final Result Performing Organization Address [facility] Phone Number INTERFACE SYSTEM Refer [...] CARE TESTING Final Result Performing Organization Address [facility] Phone Number INTERFACE SYSTEM Refer to clinic/hospital department * (ABNORMAL) POC GLUCOSE (12/29/2005 7:05 AM CDT) GLUCOSE POC 133(H) 60 - 100 mg/dL INTERFACE SYSTEM 12/29/2005 7:05 AM CDT Ash Lopez III, MD POINT OF CARE TESTING Final Result Performing Organization Address [facility] Phone Number INTERFACE SYSTEM Refer to clinic/hospital department documented in this encounter Visit Diagnoses Diagnosis Other affections of shoulder region, not elsewhere classified- Primary documented in this encounter Care Teams Rn Labor And Delivery Relationship Specialty Start Date End Date Cuba Solano MD PCP - General 07/11/09 documented as of this encounter
--- OUTSIDE RECORDS SUMMARY | 2025-03-13 06:01 | XMS_ITS | Encounter Summary ---
Author Organization [facility] Address [address] [place] [address] Care Team Providers Care Fishing Captain Name Role Phone Cuba Solano MD Primary Care Provider +1 [phone] Encounter Details Date Type Department Care Team (Latest Contact Info) Description 05/15/2005 Outpatient Historical [facility] Family Medicine Angelica [place] [address] [address] Keyona Mccloud, LUCIEN NO ADDRESS ON FILE DIABETES MELLITUS TYPE II-UNCOMPL (CMS/HCC) (Primary Dx); HYPERLIPIDEMIA NEC/NOS; ACUTE URI NOS Social History Tobacco Use Types Packs/Day Years Used Date Smoking Tobacco: Never Assessed Sex and Gender Information Value Date Recorded Sex Assigned at Not on file Legal 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
--- OUTSIDE RECORDS SUMMARY | 2025-03-13 06:01 | XMS_ITS | Encounter Summary ---
Author Organization [facility] Address [address] [place] [address] Care Team Providers Care Mat Tester Name Role Phone Cuba Solano MD Primary Care Provider +1 [phone] Encounter Details Date Type Department Care Team (Latest Contact Info) Description 05/27/2006 Outpatient Historical [facility] Family Medicine Angelica [place] [address] [address] Keyona Mccloud, LUCIEN NO ADDRESS ON FILE Other B-Complex Deficiencies (Primary Dx) Social History Tobacco Use Types Packs/Day Years Used Date Smoking Tobacco: Never Assessed Sex and Gender Information Value Date Recorded Sex Assigned at Not on file Legal Sex Male 2: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
--- OUTSIDE RECORDS SUMMARY | 2025-03-13 06:01 | XMS_ITS | Encounter Summary ---
Author Organization [facility] Address [address] [place] [address] Care Team Providers Care Airport Shuttle Driver Name Role Phone Cuba Solano MD Primary Care Provider +1 -[phone] Encounter Details Date Type Department Care Team (Latest Contact Info) Description 03/29/2006 Outpatient Historical [facility] Family Medicine Angelica [place] [address]682 [address] [address] Keyona Mccloud, LUCIEN NO ADDRESS ON FILE Unspecified Essential Hypertension (Primary Dx) Social History Tobacco Use Types Packs/Day Years Used Date Smoking Tobacco: Never Assessed Sex and Gender Information Value Date Recorded Sex Assigned at Not on file Legal Sex Male 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
--- OUTSIDE RECORDS SUMMARY | 2025-03-13 06:01 | XMS_ITS | Encounter Summary ---
Author Organization [facility] Address [address] [place] [address] Care Team Providers Care Tapping Machine Operator Name Role Phone Cuba Solano MD Primary Care Provider +1 -[phone] Encounter Details Date Type Department Care Team (Latest Contact Info) Description 07/14/2004 Outpatient Historical [facility] Family Medicine Angelica [place] [address] [address] Keyona Mccloud, LUCIEN NO ADDRESS ON FILE THRUSH (Primary Dx); JOINT PAIN-L/LEG Social History Tobacco Use Types Packs/Day Years Used Date Smoking Tobacco: Never Assessed Sex and Gender Information Value Date Recorded Sex Assigned at Not on file Legal 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
--- OUTSIDE RECORDS SUMMARY | 2025-03-13 06:01 | XMS_ITS | Encounter Summary ---
Author Organization [facility] Address [address] [place] [address] Care Team Providers Care Instrument Worker Name Role Phone uCba Solano MD Primary Care Provider +1 -[phone] Encounter Details Date Type Department Care Team (Latest Contact Info) Description 08/28/2005 Outpatient Historical [facility] Family Medicine Angelica [facility] [address] [address] Huey Upton Jr., MD [address] [place] [address] 248 [facility] 140 [place] [address] Pain in Joint, Shoulder Region (Primary Dx); Lumbago Social History Tobacco Use Types Packs/Day Years Used Date Smoking Tobacco: Never Assessed Sex and Gender Information Value Date Recorded Sex Assigned at Not on file Legal 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
--- OUTSIDE RECORDS SUMMARY | 2025-03-13 06:01 | XMS_ITS | Encounter Summary ---
Author Organization [facility] Address [address] [place] [address] Care Team Providers Care Preassembler Printed Circuit Board Name Role Phone Cuba Solano MD Primary Care Provider +1 [phone] Encounter Details Date Type Department Care Team (Latest Contact Info) Description 01/12/2006 Outpatient Historical [facility]- [address] [place] [address] [place] [address] Ash Lopez III, MD [address] [facility] [address] [place] [address] Other Affections of Shoulder Region, not Elsewhere Classified (Primary Dx); Primary Localized Osteoarthrosis, Shoulder Region Social History Tobacco Use Types Packs/Day Years Used Date Smoking Tobacco: Never Assessed Sex and Gender Information Value Date Recorded Sex Assigned at Not on file Legal Sex Male 2:49 AM BOMB SQUAD OFFICER Gender Identity Not on file Sexual Orientation Not on file documented as of this encounter Plan of Treatment Not on file documented as of this encounter Visit Diagnoses Diagnosis Other affections of shoulder region, not elsewhere classified- Primary Primary localized osteoarthrosis, shoulder region documented in this encounter Care Teams Preassembler Printed Circuit Board Relationship Specialty Start Date End Date Cuba Solano MD PCP - General 07/11/09 documented as of this encounter
--- OUTSIDE RECORDS SUMMARY | 2025-03-13 06:01 | XMS_ITS | Encounter Summary ---
Author Organization [facility] Address [address] [place] [address] Care Team Providers Care Business Development Specialist Name Role Phone Cuba Solano MD Primary Care Provider +1 -[phone] Encounter Details Date Type Department Care Team (Latest Contact Info) Description 04/12/2006 Outpatient Historical [facility] Family Medicine Angelica [facility] [address] [address] Huey Upton Jr., MD [address] [place] [address] 248 [facility] [address] [place] [address] Dysphagia (Primary Dx); Unspecified Essential Hypertension Social History Tobacco Use Types Packs/Day Years Used Date Smoking Tobacco: Never Assessed Sex and Gender Information Value Date Recorded Sex Assigned at Not on file Legal Sex Male 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
--- OUTSIDE RECORDS SUMMARY | 2025-03-13 06:01 | XMS_ITS | Encounter Summary ---
Author Organization [facility] Address [address] [place] [address] Care Team Providers Care Heating Fixture Tender Name Role Phone Cuba Solano MD Primary Care Provider +1 -[phone] Encounter Details Date Type Department Care Team (Latest Contact Info) Description 11/18/2004 Outpatient Historical [facility]oped[facility]- [address] [place] 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
--- OUTSIDE RECORDS SUMMARY | 2025-03-13 06:01 | XMS_ITS | Encounter Summary ---
Author Organization [facility] Address [address] [place] [address] Care Team Providers Care Marking Machine Tender Name Role Phone Cuba Solano MD Primary Care Provider +1 -[phone] Encounter Details Date Type Department Care Team (Latest Contact Info) Description 06/17/2006 Outpatient [facility] Family Medicine Angelica [place] [address] [address] Keyona Mccloud, LUCIEN NO ADDRESS ON FILE Unspecified Otitis Media (Primary Dx); Unspecified Tachycardia; Palpitations Social History Tobacco Use Types Packs/Day Years Used Date Smoking Tobacco: Never Assessed Sex and Gender Information Value Date Recorded Sex Assigned at Not on file Legal 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
--- OUTSIDE RECORDS SUMMARY | 2025-03-13 06:01 | XMS_ITS | Encounter Summary ---
Author Organization [facility] Address [address] [place] [address] Care Team Providers Care Lead Systems Engineer Name Role Phone Cuba Solano MD Primary Care Provider +1 -[phone] Encounter Details Date Type Department Care Team (Latest Contact Info) Description 07/08/2006 Outpatient Historical [facility] Family Medicine Angelica [place] [address] [address] Keyona Mccloud, SHIFT MANAGER NO ADDRESS ON FILE Allergy, Unspecified not Elsewhere Classified (Primary Dx) Social History Tobacco Use Types Packs/Day Years Used Date Smoking Tobacco: Never Assessed Sex and Gender Information Value Date Recorded Sex Assigned at Not on file Legal 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
--- OUTSIDE RECORDS SUMMARY | 2025-03-13 06:01 | XMS_ITS | Encounter Summary ---
Author Organization [facility] Address [address] [place] [address] Care Team Providers Care Napper Fixer Name Role Phone Cuba Solano MD Primary Care Provider +1 -[phone] Encounter Details Date Type Department Care Team (Late st Contact Info) Description 02/02/2006 Outpatient Historical [facility] Family Medicine Angelica [place] [id number] [address] [address] Social History Tobacco Use Types Packs/Day Years Used Date Smoking Tobacco: Never Assessed Sex and Gender Information Value Date Recorded Sex Assigned at Not on file Legal Sex Male 2:49 AM CLAIM EXAMINER Gender Identity Not on file Sexual Orientation Not on file documented as of this encounter Plan of Treatment Not on file documented as of this encounter Visit Diagnoses Not on filedocumented in this encounter Care Teams Napper Fixer Relationship Specialty Start Date End Date Cuba Solano MD PCP - General 07/11/09 documented as of this encounter
--- OUTSIDE RECORDS SUMMARY | 2025-03-13 06:01 | XMS_ITS | Encounter Summary ---
Author Organization [facility] Address [address] [place] [address] Care Team Providers Care Reimbursement Consultant Name Role Phone Cuba Solano MD Primary Care Provider +1 -[phone] Encounter Details Date Type Department Care Team (Latest Contact Info) Description 06/06/2004 Outpatient Historical [facility] [address] [place] [address] Frances Davies, CABLE SYSTEMS INSTALLER [address] [place] [address] HYPERSOMNI W SLEEP APNEA (Primary Dx) Social History Tobacco Use Types Packs/Day Years Used Date Smoking Tobacco: Never Assessed Sex and Gender Information Value Date Recorded Sex Assigned at Not on file Legal Sex Male 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
--- OUTSIDE RECORDS SUMMARY | 2025-03-13 06:01 | XMS_ITS | Encounter Summary ---
Author Organization [facility] Address [address] [place] [address] Care Team Providers Care Professor Of Musicology Name Role Phone Cuba Solano MD Primary Care Provider +1 -[phone] Encounter Details Date Type Department Care Team (Latest Contact Info) Description 07/15/2006 Outpatient Historical [facility] [address] [facility] [address] [place] [address] Ash Lopez III, MD [address] [place] [address] Adhesive Capsulitis of Shoulder (Primary Dx) Social History Tobacco Use Types Packs/Day Years Used Date Smoking Tobacco: Never Assessed Sex and Gender Information Value Date Recorded Sex Assigned at Not on file 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 Gender Identity Not on file Sexual [...] OF CARE TESTING Edited Performing Organization Address [facility] Co de Phone Number INTERFACE SYSTEM Refer to clinic/hospital department * (ABNORMAL) POC GLUCOSE (07/15/2006 11:02 AM CDT) GLUCOSE POC 116(H) 60 - 100 mg/dL INTERFACE SYSTEM 07/15/2006 11:0 2 AM CDT Ash Lopez III, MD POINT OF CARE TESTING Edited Performing Organization Address [facility] de Phone Number INTERFACE SYSTEM Refer to clinic/hospital department documented in this encounter Visit Diagnoses Diagnosis Adhesive capsulitis of shoulder- Primary documented in this encounter Care Teams Professor Of Musicology Relationship Specialty Start Date End Date Cuba Solano MD PCP - General 07/11/09 documented as of this encounter
--- OUTSIDE RECORDS SUMMARY | 2025-03-13 06:01 | XMS_ITS | Encounter Summary ---
Author Organization [facility] Address [address] [place] [address] Care Team Providers Care Medical Scientific Officer Name Role Phone Cuba Solano MD Primary Care Provider +1 [phone] Encounter Details Date Type Department Care Team (Latest Contact Info) Description 03/05/2006 Outpatient Historical [facility] Family Medicine Angelica [place] [id number] [address] Keyona Mccloud, LUCIEN NO ADDRESS ON FILE Unspecified Essential Hypertension (Primary Dx); Edema Social History Tobacco Use Types Packs/Day Years Used Date Smoking Tobacco: Never Assessed Sex and Gender Information Value Date Recorded Sex Assigned at Not on file Legal Sex Male 2:49 AM WELDER Gender Identity Not on file Sexual Orientation Not on file documented as of this encounter Plan of Treatment Not on file documented as of this encounter Visit Diagnoses Diagnosis Unspecified essential hypertension- Primary Edema documented in this encounter Care Teams Medical Scientific Officer Relationship Specialty Start Date End Date Cuba Solano MD PCP - General 07/11/09 documented as of this encounter
--- OUTSIDE RECORDS SUMMARY | 2025-03-13 06:01 | XMS_ITS | Encounter Summary ---
Author Organization [facility] Address [address] [place] [address] Care Team Providers Care Licensed Loan Officer Name Role Phone Cuba Solano MD Primary Care Provider +1 -[phone] Encounter Details Date Type Department Care Team (Latest Contact Info) Description 06/09/[address] [facility] Orthopedics- 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
--- OUTSIDE RECORDS SUMMARY | 2025-03-13 06:01 | XMS_ITS | Encounter Summary ---
Author Organization [facility] Address [address] [place] [address] Care Team Providers Care Tentmaker Name Role Phone Cuba Solano MD Primary Care Provider +1 -[phone] Encounter Details Date Type Department Care Team (Latest Contact Info) Description 06/11/2004 Outpatient Historical [facility] Family Medicine Angelica [facility] [address] [address] Huey Upton Jr., MD [address] [place] [address] 248 [facility] 140 [place] [address] DIABETES MELLITUS TYPE II-UNCOMPL (CMS/HCC) (Primary Dx); JOINT PAIN-L/LEG Social History Tobacco Use Types Packs/Day Years Used Date Smoking Tobacco: Never Assessed Sex and Gender Information Value Date Recorded Sex Assigned at Not on file 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
--- OUTSIDE RECORDS SUMMARY | 2025-03-13 06:01 | XMS_ITS | Encounter Summary ---
Author Organization [facility] Address [address] [place] [address] Care Team Providers Care Esthetician And Manager Medical Spa Name Role Phone Cuba Solano MD Primary Care Provider +1 [phone] Encounter Details Date Type Department Care Team (Late st Contact Info) Description 08/04/2005 Outpatient Historical [facility] Family Medicine Angelica [place] [address] [address] Social History Tobacco Use Types Packs/Day Years Used Date Smoking Tobacco: Never Assessed Sex and Gender Information Value Date Recorded Sex Assigned at Not on file 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
--- OUTSIDE RECORDS SUMMARY | 2025-03-13 06:01 | XMS_ITS | Encounter Summary ---
Author Organization [facility] Address [address] [place] [address] Care Team Providers Care Metal Hanging Helper Name Role Phone Cuba Solano MD Primary Care Provider +1 -[phone] Encounter Details Date Type Department Care Team (Latest Contact Info) Description 12/10/2004 Outpatient Historical [facility] Orthopedics- [address] [place] 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
--- OUTSIDE RECORDS SUMMARY | 2025-03-13 06:01 | XMS_ITS | Encounter Summary ---
Author Organization [facility] Address [address] [place] [address] Care Team Providers Care Dictaphone Technician Name Role Phone Cuba Solano MD Primary Care Provider +1 -[phone] Encounter Details Date Type Department Care Team (Latest Contact Info) Description 07/05/2006 [facility] 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
--- OUTSIDE RECORDS SUMMARY | 2025-03-13 06:01 | XMS_ITS | Encounter Summary ---
Author Organization [facility] Address [address] [place] [address] Care Team Providers Care Commercial Truck Driver Name Role Phone Cuba Solano MD Primary Care Provider +1 -[phone] Encounter Details Date Type Department Care Team (Late st Contact Info) Description 09/11/2004 Outpatient Historical [facility] Imaging Services [facility] 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
--- OUTSIDE RECORDS SUMMARY | 2025-03-13 06:01 | XMS_ITS | Encounter Summary ---
Author Organization [facility] Address [address] [place] [address] Care Team Providers Care Stretcher Helper Name Role Phone Cuba Solano MD Primary Care Provider +1 -[phone] Encounter Details Date Type Department Care Team (Latest Contact Info) Description 10/21/2004 Outpatient Historical [facility] Family Medicine Angelica [facility] [address] [address] Huey Upton Jr., MD [address] [place] [address] 248 [facility] 140 [place] [address] ACUTE SINUSITIS NOS (Primary Dx) Social History Tobacco Use Types Packs/Day Years Used Date Smoking Tobacco: Never Assessed Sex and Gender Information Value Date Recorded Sex Assigned at Not on file Legal Sex Male 2:49 AM ALLOCATION ANALYST Gender Identity Not on file Sexual Orientation Not on file documented as of this encounter Plan of Treatment Not on file documented as of this encounter Visit Diagnoses Diagnosis Acute sinusitis, unspecified- Primary documented in this encounter Care Teams Stretcher Helper Relationship Specialty Start Date End Date Cuba Solano MD PCP - General 07/11/09 documented as of this encounter
--- OUTSIDE RECORDS SUMMARY | 2025-03-13 06:01 | XMS_ITS | Encounter Summary ---
Author Organization [facility] Address [address] [place] [address] Care Team Providers Care Telecommunications Consultant Name Role Phone Cuba Solano MD Primary Care Provider +1 -[phone] Encounter Details Date Type Department Care Team (Latest Contact Info) Description 09/11/2004 Outpatient Historical [facility] Imaging Services [facility] 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
--- OUTSIDE RECORDS SUMMARY | 2025-03-13 06:01 | XMS_ITS | Encounter Summary ---
Author Organization [facility] Address [address] [place] [address] Care Team Providers Care Drier And Grinder Tender Name Role Phone Cuba Solano MD Primary Care Provider +1 -[phone] Encounter Details Date Type Department Care Team (Late st Contact Info) Description 09/02/2004 Outpatient Historical [facility] Family Medicine Angelica [place] [id number] [address] Social History Tobacco Use Types Packs/Day Years Used Date Smoking Tobacco: Never Assessed Sex and Gender Information Value Date Recorded Sex Assigned at Not on file Legal Sex Male 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
--- OUTSIDE RECORDS SUMMARY | 2025-03-13 06:01 | XMS_ITS | Encounter Summary ---
Author Organization [facility] Address [address] [place] [address] Care Team Providers Care Tree Feller Name Role Phone Cuba Solano MD Primary Care Provider +1 -[phone] Encounter Details Date Type Department Care Team (Latest Contact Info) Description 01/09/2005 Outpatient Historical [facility] Family Medicine Angelica [facility] [address] [address] Huey Upton Jr., MD [address] [place] [address] 248 [facility] 140 [place] [address] DERMATITIS NEC (Primary Dx) Social History Tobacco Use Types Packs/Day Years Used Date Smoking Tobacco: Never Assessed Sex and Gender Information Value Date Recorded Sex Assigned at Not on file Legal Sex Male 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
--- OUTSIDE RECORDS SUMMARY | 2025-03-13 06:01 | XMS_ITS | Encounter Summary ---
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
--- OUTSIDE RECORDS SUMMARY | 2025-03-13 06:01 | XMS_ITS | Encounter Summary ---
Author Organization [facility] Address [address] [place] [address] Care Team Providers Care Investment Representative Name Role Phone Cuba Solano MD Primary Care Provider +1 -[phone] Encounter Details Date Type Department Care Team (Late st Contact Info) Description 07/20/2005 Outpatient Historical [facility] Family Medicine Angelica [place] [address] [address] Social History Tobacco Use Types Packs/Day Years Used Date Smoking Tobacco: Never Assessed Sex and Gender Information Value Date Recorded Sex Assigned at Not on file Legal Sex Male 2:49 AM ALPINE GUIDE Gender Identity Not on file Sexual Orientation Not on file documented as of this encounter Plan of Treatment Not on file documented as of this encounter Visit Diagnoses Not on filedocumented in this encounter Care Teams Investment Representative Relationship Specialty Start Date End Date Cuba Solano MD PCP - General 07/11/09 documented as of this encounter
--- OUTSIDE RECORDS SUMMARY | 2025-03-13 06:01 | XMS_ITS | Encounter Summary ---
Author Organization [facility] Address [address] [place] [address] Care Team Providers Care Hedge Fund Principal Name Role Phone Cuba Solano MD Primary Care Provider +1 -[phone] Encounter Details Date Type Department Care Team (Latest Contact Info) Description 01/18/2006 [facility] 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
--- OUTSIDE RECORDS SUMMARY | 2025-03-13 06:01 | XMS_ITS | Encounter Summary ---
Author Organization [facility] Address [address] [place] [address] Care Team Providers Care Psychometrist Name Role Phone Cuba Solano MD Primary Care Provider +1 -[phone] Encounter Details Date Type Department Care Team (Latest Contact Info) Description 06/18/2006 Outpatient Historical [facility] Cardiovascular Services [address] [place] [address] [place] [address] Keyona Mccloud, LUCIEN NO ADDRESS ON FILE Supraventricular Premature Beats (Primary Dx) Social History Tobacco Use Types Packs/Day Years Used Date Smoking Tobacco: Never Assessed Sex and Gender Information Value Date Recorded Sex Assigned at Not on file Legal 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
--- OUTSIDE RECORDS SUMMARY | 2025-03-13 06:01 | XMS_ITS | Encounter Summary ---
Author Organization [facility] Address [address] [place] [address] Care Team Providers Care Jewel Oliving Machine Operator Name Role Phone Cuba Solano MD Primary Care Provider +1 -[phone] Encounter Details Date Type Department Care Team (Latest Contact Info) Description 04/17/2005 Outpatient Historical [facility] Family Medicine Angelica [facility] [address] [address] Huey Upton Jr., MD [address] [place] [address] 248 [facility] 140 [place] [address] ALLERGY, UNSPECIFIED (Primary Dx) Social History Tobacco Use Types Packs/Day Years Used Date Smoking Tobacco: Never Assessed Sex and Gender Information Value Date Recorded Sex Assigned at Not on file Legal Sex Male 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
--- OUTSIDE RECORDS SUMMARY | 2025-03-13 06:01 | XMS_ITS | Encounter Summary ---
Author Organization [facility] Address [address] [place] [address] Care Team Providers Care Business Advisor Name Role Phone Cuba Solano MD Primary Care Provider +1 -[phone] Encounter Details Date Type Department Care Team (Latest Contact Info) Description 11/26/2004 Outpatient Historical [facility] Orthopedics- 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
--- OUTSIDE RECORDS SUMMARY | 2025-03-13 06:01 | XMS_ITS | Encounter Summary ---
Author Organization [facility] Address [address] [place] [address] Care Team Providers Care Cafe Attendant Name Role Phone Cuba Solano MD Primary Care Provider +1 [phone] Encounter Details Date Type Department Care Team (Latest Contact Info) Description 07/30/2005 Outpatient Historical [facility] Family Medicine [place] [address] [address] Keyona Mccloud, LUCIEN NO ADDRESS ON FILE Unspecified Otitis Media (Primary Dx) Social History Tobacco Use Types Packs/Day Years Used Date Smoking Tobacco: Never Assessed Sex and Gender Information Value Date Recorded Sex Assigned at Not on file Legal Sex Male 2:49 AM GARNETT FEEDER Gender Identity Not on file Sexual Orientation Not on file documented as of this encounter Plan of Treatment Not on file documented as of this encounter Visit Diagnoses Diagnosis Unspecified otitis media- Primary documented in this encounter Care Teams Cafe Attendant Relationship Specialty Start Date End Date Cuba Solano MD PCP - General 07/11/09 documented as of this encounter
--- OUTSIDE RECORDS SUMMARY | 2025-03-13 06:01 | XMS_ITS | Encounter Summary ---
Author Organization [facility] Address [address] [place] [address] Care Team Providers Care Cashier Gambling Name Role Phone Cuba Solano MD Primary Care Provider +1 [phone] Encounter Details Date Type Department Care Team (Late st Contact Info) Description 03/04/2005 Outpatient Historical [facility] Family Medicine [place] [address] [address] Social History Tobacco Use Types Packs/Day Years Used Date Smoking Tobacco: Never Assessed Sex and Gender Information Value Date Recorded Sex Assigned at Not on file Legal 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
--- OUTSIDE RECORDS SUMMARY | 2025-03-13 06:01 | XMS_ITS | Encounter Summary ---
Author Organization [facility] Address [address] [place] [address] Care Team Providers Care Music Coordinator Name Role Phone Cuba Solano MD Primary Care Provider +1 [phone] Encounter Details Date Type Department Care Team (Latest Contact Info) Description 05/04/2006 Outpatient Historical [facility] Family Medicine [place] [address] [address] Keyona Mccloud FNP NO ADDRESS ON FILE DM w/o Complication Type II (CMS/HCC) (Primary Dx); Other and Unspecified Hyperlipidemia; Encounter for Long-Term (Current) Use of Other Medications Social History Tobacco Use Types Packs/Day Years Used Date Smoking Tobacco: Never Assessed Sex and Gender Information Value Date Recorded Sex Assigned at Not on file Legal Sex Male 2:49 AM EDGE STITCHER Gender Identity Not on file Sexual [...] medications documented in this encounter Care Teams Music Coordinator Relationship Specialty Start Date End Date Cuba Solano MD PCP - General 07/11/09 documented as of this encounter
--- OUTSIDE RECORDS SUMMARY | 2025-03-13 06:01 | XMS_ITS | Encounter Summary ---
Author Organization [facility] Address [address] [place] [address] Care Team Providers Care Public Relations Director Name Role Phone Cuba Solano MD Primary Care Provider +1 [phone] Encounter Details Date Type Department Care Team (Latest Contact Info) Description 09/03/2004 Outpatient Historical [facility] Family Medicine Angelica [facility] [address] [address] Huey Upton Jr., MD [address] [place] [address] 248 [facility] [address] [place] [address] DIABETES MELLITUS TYPE II-UNCOMPL (CMS/HCC) (Primary Dx); JOINT PAIN-L/LEG Social History Tobacco Use Types Packs/Day Years Used Date Smoking Tobacco: Never Assessed Sex and Gender Information Value Date Recorded Sex Assigned at Not on file Legal Sex Male 2:49 AM BOARD FILLER Gender Identity Not on file Sexual Orientation Not on file documented as of this encounter Plan of Treatment Not on file documented as of this encounter Visit Diagnoses Diagnosis Type II or unspecified type diabetes mellitus 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, not stated as uncontrolled- Primary Pain in joint, lower leg documented in this encounter Care Teams Public Relations Director Relationship Specialty Start Date End Date Cuba Solano MD PCP - General 07/11/09 documented as of this encounter
--- OUTSIDE RECORDS SUMMARY | 2025-03-13 06:01 | XMS_ITS | Encounter Summary ---
Author Organization [facility] Address [address] [place] [address] Care Team Providers Care Veterans Service Officer Name Role Phone Cuba Solano MD Primary Care Provider +1 [phone] Encounter Details Date Type Department Care Team (Late st Contact Info) Description 07/22/2004 Outpatient Historical [facility] Family Medicine [place] [address] [address] Social History Tobacco Use Types Packs/Day Years Used Date Smoking Tobacco: Never Assessed Sex and Gender Information Value Date Recorded Sex Assigned at Not on file Legal Sex Male 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
--- OUTSIDE RECORDS SUMMARY | 2025-03-13 06:01 | XMS_ITS | Encounter Summary ---
Author Organization [facility] Address [address] [place] [address] Care Team Providers Care Box Spring Maker Name Role Phone Cuba Solano MD Primary Care Provider +1 -[phone] Encounter Details Date Type Department Care Team (Latest Contact Info) Description 02/06/2005 Outpatient Historical [facility] Family Medicine Angelica [facility] [address] [address] Huey Upton Jr., MD [address] [place] [address] 248 [facility] 140 [place] [address] HAIR DISEASES NEC (Primary Dx); DIABETES MELLITUS TYPE II-UNCOMPL (CMS/[facility]); Dysfunct eustachian tube; Vaccine for influenza Social History Tobacco Use Types Packs/Day Years Used Date Smoking Tobacco: Never Assessed Sex and Gender Information Value Date Recorded Sex Assigned at Not on file Legal Sex Male 2:49 AM STRIPPER PRINTED CIRCUIT BOARDS Gender Identity Not on file Sexual Orientation [...] influenza documented in this encounter Care Teams Box Spring Maker Relationship Specialty Start Date End Date Cuba Solano MD PCP - General 07/11/09 documented as of this encounter
--- OUTSIDE RECORDS SUMMARY | 2025-03-13 06:01 | XMS_ITS | Encounter Summary ---
Author Organization [facility] Address [address] [place] [address] Care Team Providers Care Frame Builder Name Role Phone Cuba Solano MD Primary Care Provider +1 [phone] Encounter Details Date Type Department Care Team (Latest Contact Info) Description 12/03/2004 Outpatient Historical [facility] Orthopedics- [address] [place] [place] [address] Arcelia Lockhart, VIVIANE [address] [place] [address] LOC PRIM OSTEOART-L/LEG (Primary Dx) Social History Tobacco Use Types Packs/Day Years Used Date Smoking Tobacco: Never Assessed Sex and Gender Information Value Date Recorded Sex Assigned at Not on file Legal Sex Male 2:49 AM INTERNET MARKETER Gender Identity Not on file Sexual Orientation Not on file documented as of this encounter Plan of Treatment Not on file documented as of this encounter Visit Diagnoses Diagnosis Primary localized osteoarthrosis, lower leg- Primary documented in this encounter Care Teams Frame Builder Relationship Specialty Start Date End Date Cuba Solano MD PCP - General 07/11/09 documented as of this encounter
--- OUTSIDE RECORDS SUMMARY | 2025-03-13 06:01 | XMS_ITS | Encounter Summary ---
Author Organization [facility] Address [address] [place] [address] Care Team Providers Care Natural Gas Shothole Driller Name Role Phone Cuba Solano MD Primary Care Provider +1 [phone] Encounter Details Date Type Department Care Team (Latest Contact Info) Description 04/05/2006 [facility] [address] [place] [address] Huey Upton Jr., MD [address] [place] [address] [address] [place] [address] DM w/o Complication Type II (CMS/HCC) (Primary Dx) Social History Tobacco Use Types Packs/Day Years Used Date Smoking Tobacco: Never Assessed Sex and Gender Information Value Date Recorded Sex Assigned at Not on file Legal Sex Male 2:49 AM GRIDDLE COOK Gender Identity Not on file Sexual Orientation Not on file documented as of this encounter Plan of Treatment Not on file documented as of this encounter Visit Diagnoses Diagnosis Type II or unspecified type diabetes mellitus 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, not stated as uncontrolled- Primary documented in this encounter Care Teams Natural Gas Shothole Driller Relationship Specialty Start Date End Date Cuba Solano MD PCP - General 07/11/09 documented as of this encounter
--- OUTSIDE RECORDS SUMMARY | 2025-03-13 06:01 | XMS_ITS | Encounter Summary ---
Author Organization [facility] Address [address] [place] [address] Care Team Providers Care Crimper Operator Name Role Phone Cuba Solano MD Primary Care Provider +1 -[phone] Encounter Details Date Type Department Care Team (Latest Contact Info) Description 11/12/2004 Outpatient Historical [facility] Orthopedics- [address] [place] [address] [place] [address] Ash Lopez III, MD [address] [place] [address] JOINT PAIN-L/LEG (Primary Dx); LOC PRIM OSTEOART-L/LEG Social History Tobacco Use Types Packs/Day Years Used Date Smoking Tobacco: Never Assessed Sex and Gender Information Value Date Recorded Sex Assigned at Not on file Legal Sex Male 2:49 AM SWEDISH MASSEUSE Gender Identity Not on file Sexual Orientation Not on file documented as of this encounter Plan of Treatment Not on file documented as of this encounter Visit Diagnoses Diagnosis Pain in joint, lower leg- Primary Primary localized osteoarthrosis, lower leg documented in this encounter Care Teams Crimper Operator Relationship Specialty Start Date End Date Cuba Solano MD PCP - General 07/11/09 documented as of this encounter
--- OUTSIDE RECORDS SUMMARY | 2025-03-13 06:01 | XMS_ITS | Encounter Summary ---
Author Organization [facility] Address [address] [place] [address] Care Team Providers Care Pit Shoveler Name Role Phone Cuba Solano MD Primary Care Provider +1 [phone] Encounter Details Date Type Department Care Team (Latest Contact Info) Description 10/21/2005 Outpatient Historical [facility] Orthopedics- [address] [place] 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
--- OUTSIDE RECORDS SUMMARY | 2025-03-13 06:01 | XMS_ITS | Encounter Summary ---
Author Organization [facility] Address [address] [place] [address] Care Team Providers Care Media Analyst Name Role Phone Cuba Solano MD Primary Care Provider +1 -[phone] Encounter Details Date Type Department Care Team (Latest Contact Info) Description 04/23/2006 Outpatient Historical [facility] Orthopedics- [address] [place] [address] [place] [address] Ash Lopez III, MD [address] [place] [address] Pain in Joint, Shoulder Region (Primary Dx) Social History Tobacco Use Types Packs/Day Years Used Date Smoking Tobacco: Never Assessed Sex and Gender Information Value Date Recorded Sex Assigned at Not on file Legal Sex Male 2:49 AM DROP WIRE HANGER Gender Identity Not on file Sexual Orientation Not on file documented as of this encounter Plan of Treatment Not on file documented as of this encounter Visit Diagnoses Diagnosis Pain in joint, shoulder region- Primary documented in this encounter Care Teams Media Analyst Relationship Specialty Start Date End Date Cuba Solano MD PCP - General 07/11/09 documented as of this encounter
--- OUTSIDE RECORDS SUMMARY | 2025-03-13 06:01 | XMS_ITS | Encounter Summary ---
Author Organization [facility] Address [address] [place] [address] Care Team Providers Care Contract Attorney Name Role Phone Cuba Solano MD Primary Care Provider +1 -[phone] Encounter Details Date Type Department Care Team (Latest Contact Info) Description 05/13/2004 Outpatient [facility] Family Medicine Angelica [address] [address] Donte Borrego MD NO ADDRESS ON FILE DIABETES MELLITUS TYPE II UNCONTR UNCOMPL (Primary Dx); Benign hypertension; Dermatitis due to plant Social History Tobacco Use Types Packs/Day Years Used Date Smoking Tobacco: Never Assessed Sex and Gender Information Value Date Recorded Sex Assigned at Not on file Legal Sex Male 2:49 AM JAVA FLEX DEVELOPER Gender Identity Not on file Sexual [...] food) documented in this encounter Care Teams Contract Attorney Relationship Specialty Start Date End Date Cuba Solano MD PCP - General 07/11/09 documented as of this encounter
--- OUTSIDE RECORDS SUMMARY | 2025-03-13 06:01 | XMS_ITS | Encounter Summary ---
Author Organization [facility] Address [address] [place] [address] Care Team Providers Care Oral Surgery Physician Name Role Phone Cuba Solano MD Primary Care Provider +1 -[phone] Encounter Details Date Type Department Care Team (Late st Contact Info) Description 12/02/2004 Outpatient Historical [facility] Family Medicine [place] [address] [address] Social History Tobacco Use Types Packs/Day Years Used Date Smoking Tobacco: Never Assessed Sex and Gender Information Value Date Recorded Sex Assigned at Not on file Legal Sex Male 2:49 AM WARRANTY ADMINISTRATOR Gender Identity Not on file Sexual Orientation Not on file documented as of this encounter Plan of Treatment Not on file documented as of this encounter Visit Diagnoses Not on filedocumented in this encounter Care Teams Oral Surgery Physician Relationship Specialty Start Date End Date Cuba Solano MD PCP - General 07/11/09 documented as of this encounter
--- OUTSIDE RECORDS SUMMARY | 2025-03-13 06:01 | XMS_ITS | Encounter Summary ---
Author Organization [facility] Address [address] [place] [address] Care Team Providers Care Sdv Pilot/Navigator/Dds Operator Name Role Phone Cuba Solano MD Primary Care Provider +1 -[phone] Encounter Details Date Type Department Care Team (Latest Contact Info) Description 07/27/2006 Outpatient Historical [facility] Orthopedics- [address] [place] [address] [place] [address] Ash Lopez III, MD [address] [facility] [address] [place] [address] Adhesive Capsulit Shlder (Primary Dx) Social History Tobacco Use Types Packs/Day Years Used Date Smoking Tobacco: Never Assessed Sex and Gender Information Value Date Recorded Sex Assigned at Not on file Legal Sex Male 2:49 AM SALES ADMINISTRATION SPECIALIST Gender Identity Not on file Sexual Orientation Not on file documented as of this encounter Plan of Treatment Not on file documented as of this encounter Visit Diagnoses Diagnosis Adhesive capsulit shlder- Primary Adhesive capsulitis of shoulder documented in this encounter Care Teams Sdv Pilot/Navigator/Dds Operator Relationship Specialty Start Date End Date Cuba Solano MD PCP - General 07/11/09 documented as of this encounter
--- OUTSIDE RECORDS SUMMARY | 2025-03-13 06:01 | XMS_ITS | Encounter Summary ---
Author Organization [facility] Address [address] [place] [address] Care Team Providers Care Mri Technician Name Role Phone Cuba Solano MD Primary Care Provider +1 -[phone] Encounter Details Date Type Department Care Team (Latest Contact Info) Description 03/16/[address] [facility] Orthopedics- [address] [place] 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
--- OUTSIDE RECORDS SUMMARY | 2025-03-13 06:02 | XMS_ITS | Encounter Summary ---
Author Organization [facility] Address [address] [place] [address] Care Team Providers Care Well Puller Name Role Phone Cuba Solano MD Primary Care Provider +1 -[phone] Encounter Details Date Type Department Care Team (Latest Contact Info) Description 07/04/2001 Outpatient Historical [facility] Family Medicine [place] [address] [address] Donte Borrego MD NO ADDRESS ON FILE HYPERTENSION NOS (Primary Dx); HYPERLIPIDEMIA NEC/NOS; AFTERCARE SHIPPING AND RECEIVING CLERK USE MEDICATN; VACCINE FOR STREP PNEUMONIAE Social History Tobacco Use Types Packs/Day Years Used Date Smoking Tobacco: Never Assessed Sex and Gender Information Value Date Recorded Sex Assigned at Not on file Legal Sex Male 2:49 AM BUS BOY Gender Identity Not on file Sexual Orientation [...] (pneumococcus) documented in this encounter Care Teams Well Puller Relationship Specialty Start Date End Date Cuba Solano MD PCP - General 07/11/09 documented as of this encounter
--- OUTSIDE RECORDS SUMMARY | 2025-03-13 06:02 | XMS_ITS | Encounter Summary ---
Author Organization [facility] Address [address] [place] [address] Care Team Providers Care Molding And Trim Installer Name Role Phone Cuba Solano MD Primary Care Provider +1 -[phone] Encounter Details Date Type Department Care Team (Latest Contact Info) Description 03/30/2004 Outpatient Historical [facility] [address] [place] [address] [place] [address] Kvng Kilpatrick MD NO ADDRESS ON FILE HYPERSOMNI W SLEEP APNEA (Primary Dx) Social History Tobacco Use Types Packs/Day Years Used Date Smoking Tobacco: Never Assessed Sex and Gender Information Value Date Recorded Sex Assigned at Not on file Legal Sex Male 2:49 AM TANKMAN Gender Identity Not on file Sexual Orientation Not on file documented as of this encounter Plan of Treatment Not on file documented as of this encounter Visit Diagnoses Diagnosis Hypersomnia with sleep apnea, unspecified- Primary documented in this encounter Care Teams Molding And Trim Installer Relationship Specialty Start Date End Date Cuba Solano MD PCP - General 07/11/09 documented as of this encounter
--- OUTSIDE RECORDS SUMMARY | 2025-03-13 06:02 | XMS_ITS | Encounter Summary ---
Author Organization [facility] Address [address] [place] [address] Care Team Providers Care Real Estate Intern Name Role Phone Cuba Solano MD Primary Care Provider +1 -[phone] Encounter Details Date Type Department Care Team (Latest Contact Info) Description 09/06/2000 Outpatient Historical [facility] [place] [address] [place] [address] Other convulsions (Primary Dx) Social History Tobacco Use Types Packs/Day Years Used Date Smoking Tobacco: Never Assessed Sex and Gender Information Value Date Recorded Sex Assigned at Not on file Legal Sex Male 2:49 AM PETROLEUM REFINERY OPERATOR Gender Identity Not on file Sexual Orientation Not on file documented as of this encounter Plan of Treatment Not on file documented as of this encounter Visit Diagnoses Diagnosis Other convulsions- Primary documented in this encounter Care Teams Real Estate Intern Relationship Specialty Start Date End Date Cuba Solano MD PCP - General 07/11/09 documented as of this encounter
--- OUTSIDE RECORDS SUMMARY | 2025-03-13 06:02 | XMS_ITS | Encounter Summary ---
Author Organization [facility] Address [address] [place] [address] Care Team Providers Care Environmental Services Tech Name Role Phone Cuba Solano MD Primary Care Provider +1 [phone] Encounter Details Date Type Department Care Team (Latest Contact Info) Description 10/04/2000 Outpatient Historical [facility] Family Medicine [place] [address] [address] Donte Borrego MD NO ADDRESS ON FILE Other and unspecified hyperlipidemia (Primary Dx); Unspecified essential hypertension; Allergy, unspecified not elsewhere classified; Actinic keratosis Social History Tobacco Use Types Packs/Day Years Used Date Smoking Tobacco: Never Assessed Sex and Gender Information Value Date Recorded Sex Assigned at Not on file Legal Sex Male 2:49 AM STORE ASSOCIATE Gender Identity Not on file Sexual Orientation Not on file documented as of this encounter Plan of Treatment Not on file documented as of this encounter Visit Diagnoses Diagnosis Other and unspecified hyperlipidemia- Primary Unspecified essential hypertension Allergy, unspecified not elsewhere classified Actinic keratosis documented in this encounter Care Teams Environmental Services Tech Relationship Specialty Start Date End Date Cuba Solano MD PCP - General 07/11/09 documented as of this encounter
--- OUTSIDE RECORDS SUMMARY | 2025-03-13 06:02 | XMS_ITS | Encounter Summary ---
Author Organization [facility] Address [address] [facility] Attn: [place] [address] Care Team Providers Care Acid Dipper Name Role Phone Cuba Solano MD Primary Care Provider +1 [phone] Encounter Details Date Type Department Care Team (Late st Contact Info) Description 09/15/2000 Outpatient Historical Donte Borrego MD NO ADDRESS ON FILE Social History Tobacco Use Types Packs/Day Years Used Date Smoking Tobacco: Never Assessed Sex and Gender Information Value Date Recorded Sex Assigned at Not on file Legal Sex Male 2:49 AM STEP DOWN SPECIALIST Gender Identity Not on file Sexual Orientation Not on file documented as of this encounter Plan of Treatment Not on file documented as of this encounter Visit Diagnoses Not on filedocumented in this encounter Care Teams Acid Dipper Relationship Specialty Start Date End Date Cuba Solano MD PCP - General 07/11/09 documented as of this encounter
--- OUTSIDE RECORDS SUMMARY | 2025-03-13 06:02 | XMS_ITS | Encounter Summary ---
Author Organization [facility] Address [address] [facility] Attn: [place] [address] Care Team Providers Care Fitness Coach Name Role Phone Cuba Solano MD Primary Care Provider +1 [phone] Encounter Details Date Type Department Care Team (Late st Contact Info) Description 10/05/2000 Outpatient Historical Donte Borrego MD NO ADDRESS ON FILE Social History Tobacco Use Types Packs/Day Years Used Date Smoking Tobacco: Never Assessed Sex and Gender Information Value Date Recorded Sex Assigned at Not on file Legal Sex Male 2:49 AM CHILD STUDY TEAM DIRECTOR Gender Identity Not on file Sexual Orientation Not on file documented as of this encounter Plan of Treatment Not on file documented as of this encounter Visit Diagnoses Not on filedocumented in this encounter Care Teams Fitness Coach Relationship Specialty Start Date End Date Cuba Solano MD PCP - General 07/11/09 documented as of this encounter
--- OUTSIDE RECORDS SUMMARY | 2025-03-13 06:02 | XMS_ITS | Encounter Summary ---
Author Organization [facility] Address [address] [place] [address] Care Team Providers Care Vegetable Thinner Name Role Phone Cuba Solano MD Primary Care Provider +1 [phone] Encounter Details Date Type Department Care Team (Late st Contact Info) Description 03/30/2004 Outpatient Historical [facility] [address] [place] [address] [place] [address] Social History Tobacco Use Types Packs/Day Years Used Date Smoking Tobacco: Never Assessed Sex and Gender Information Value Date Recorded Sex Assigned at Not on file Legal Sex Male 2:49 AM SIGNS AND DISPLAYS SALES REPRESENTATIVE Gender Identity Not on file Sexual Orientation Not on file documented as of this encounter Plan of Treatment Not on file documented as of this encounter Visit Diagnoses Not on filedocumented in this encounter Care Teams Vegetable Thinner Relationship Specialty Start Date End Date Cuba Solano MD PCP - General 07/11/09 documented as of this encounter
--- OUTSIDE RECORDS SUMMARY | 2025-03-13 06:02 | XMS_ITS | Encounter Summary ---
Author Organization [facility] Address [address] [place] [address] Care Team Providers Care It Project Lead Name Role Phone Cuba Solano MD Primary Care Provider +1 [phone] Encounter Details Date Type Department Care Team (Latest Contact Info) Description 05/11/2001 Outpatient Historical [facility] Family Medicine [place] [address] [address] Donte Borrego MD NO ADDRESS ON FILE ACUTE SINUSITIS NOS (Primary Dx); CONJUNCTIVAL HEMORRHAGE; HYPERTENSION NOS Social History Tobacco Use Types Packs/Day Years Used Date Smoking Tobacco: Never Assessed Sex and Gender Information Value Date Recorded Sex Assigned at Not on file Legal Sex Male 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
--- OUTSIDE RECORDS SUMMARY | 2025-03-13 06:02 | XMS_ITS | Encounter Summary ---
Author Organization [facility] Address [address] [place] [address] Care Team Providers Care Tile Layer Helper Name Role Phone Cuba Solano MD Primary Care Provider +1 [phone] Encounter Details Date Type Department Care Team (Latest Contact Info) Description 04/07/2001 Outpatient Historical [facility] Family Medicine [place] [address] [address] Donte Borrego MD NO ADDRESS ON FILE HYPERTENSION NOS (Primary Dx); AFTERCARE CUSTODIAL USE MEDICATN; ANEMIA NOS; VACCINE FOR INFLUENZA Social History Tobacco Use Types Packs/Day Years Used Date Smoking Tobacco: Never Assessed Sex and Gender Information Value Date Recorded Sex Assigned at Not on file Legal Sex Male 2:49 AM CLEANING PROFESSIONAL Gender Identity Not on file Sexual Orientation Not on file documented as of this encounter Plan of Treatment Not on file documented as of this encounter Visit Diagnoses Diagnosis Unspecified essential hypertension- Primary Encounter for long-term (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 of other medications Anemia, unspecified Need vaccination-viral disease Need for prophylactic vaccination and inoculation against other viral diseases documented in this encounter Care Teams Tile Layer Helper Relationship Specialty Start Date End Date Cuba Solano MD PCP - General 07/11/09 documented as of this encounter
--- OUTSIDE RECORDS SUMMARY | 2025-03-13 06:02 | XMS_ITS | Encounter Summary ---
Author Organization [facility] Address [address] [place] [address] Care Team Providers Care Detective Investigator Name Role Phone Cuba Solano MD Primary Care Provider +1 [phone] Encounter Details Date Type Department Care Team (Latest Contact Info) Description 04/07/2000 Outpatient Historical [facility] Family Medicine [place] [id number] [address] Donte Borrego MD NO ADDRESS ON FILE Unspecified essential hypertension (Primary Dx); Unspecified suppurative otitis media; Nasal/sinus dis NEC Social History Tobacco Use Types Packs/Day Years Used Date Smoking Tobacco: Never Assessed Sex and Gender Information Value Date Recorded Sex Assigned at Not on file Legal Sex Male 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
--- OUTSIDE RECORDS SUMMARY | 2025-03-13 06:02 | XMS_ITS | Encounter Summary ---
Author Organization [facility] Address [address] [place] [address] Care Team Providers Care Offset Second Press Operator Name Role Phone Cuba Solano MD Primary Care Provider +1 [phone] Encounter Details Date Type Department Care Team (Latest Contact Info) Description 07/07/2000 Outpatient Historical [facility] Family Medicine [place] [address] [address] Donte Borrego MD NO ADDRESS ON FILE Unspecified essential hypertension (Primary Dx); Obesity, unspecified; Allergy, unspecified not elsewhere classified; Actinic keratosis Social History Tobacco Use Types Packs/Day Years Used Date Smoking Tobacco: Never Assessed Sex and Gender Information Value Date Recorded Sex Assigned at Not on file Legal Sex Male 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
--- OUTSIDE RECORDS SUMMARY | 2025-03-13 06:02 | XMS_ITS | Encounter Summary ---
Author Organization [facility] Address [address] [place] [address] Care Team Providers Care Product Management Analyst Name Role Phone Cuba Solano MD Primary Care Provider +1 [phone] Encounter Details Date Type Department Care Team (Latest Contact Info) Description 05/30/2001 Outpatient Historical [facility] Family Medicine [place] [address] [address] Donte Borrego MD NO ADDRESS ON FILE HYPERTENSION NOS (Primary Dx); ACUTE SINUSITIS NOS; KERATODERMA, ACQUIRED; HYPERLIPIDEMIA NEC/NOS Social History Tobacco Use Types Packs/Day Years Used Date Smoking Tobacco: Never Assessed Sex and Gender Information Value Date Recorded Sex Assigned at Not on file 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
--- OUTSIDE RECORDS SUMMARY | 2025-03-13 06:02 | XMS_ITS | Encounter Summary ---
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
--- OUTSIDE RECORDS SUMMARY | 2025-03-13 06:02 | XMS_ITS | Encounter Summary ---
Author Organization [facility] Address [address] [place] [address] Care Team Providers Care Line Service Attendant Name Role Phone Cuba Solano MD Primary Care Provider +1 [phone] Encounter Details Date Type Department Care Team (Latest Contact Info) Description 11/22/2000 Outpatient Historical [facility] Family Medicine [place] [address] [address] Donte Borrego MD NO ADDRESS ON FILE Other and unspecified hyperlipidemia (Primary Dx); Encounter for long-term (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 of other medications Social History Tobacco Use Types Packs/Day Years Used Date Smoking Tobacco: Never Assessed Sex and Gender Information Value Date Recorded Sex Assigned at Not on file Legal Sex Male 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
--- OUTSIDE RECORDS SUMMARY | 2025-03-13 06:02 | XMS_ITS | Encounter Summary ---
Author Organization [facility] Address [address] [place] [address] Care Team Providers Care Pharmacology Professor Name Role Phone Cuba Solano MD Primary Care Provider +1 [phone] Encounter Details Date Type Department Care Team (Latest Contact Info) Description 04/02/[address] [facility] Family Medicine [place] [address] [address] Donte Borrego MD NO ADDRESS ON FILE DIABETES MELLITUS TYPE II UNCONTR UNCOMPL (Primary Dx); GOUT NOS Social History Tobacco Use Types Packs/Day Years Used Date Smoking Tobacco: Never Assessed Sex and Gender Information Value Date Recorded Sex Assigned at Not on file Legal Sex Male 2:49 AM EXHIBITOR SALES Gender Identity Not on file Sexual Orientation Not on file documented as of this encounter Plan of Treatment Not on file documented as of this encounter Visit Diagnoses Diagnosis Type II or unspecified type diabetes mellitus 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, uncontrolled- Primary Gout, unspecified documented in this encounter Care Teams Pharmacology Professor Relationship Specialty Start Date End Date Cuba Solano MD PCP - General 07/11/09 documented as of this encounter
--- OUTSIDE RECORDS SUMMARY | 2025-03-13 06:02 | XMS_ITS | Encounter Summary ---
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
--- OUTSIDE RECORDS SUMMARY | 2025-03-13 06:02 | XMS_ITS | Encounter Summary ---
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
--- OUTSIDE RECORDS SUMMARY | 2025-03-13 06:02 | XMS_ITS | Encounter Summary ---
Author Organization [facility] Address [address] [place] [address] Care Team Providers Care Office Administrative Assistant Name Role Phone Cuba Solano MD Primary Care Provider +1 [phone] Encounter Details Date Type Department Care Team (Latest Contact Info) Description 01/07/2001 Outpatient Historical [facility] Family Medicine [place] [facility] [address] [address] Zara Royal, DO [address] [place] [address] Unspecified essential hypertension (Primary Dx); Other and unspecified hyperlipidemia; Allergy, unspecified not elsewhere classified; Traumatic amputation of leg(s) (complete) (partial), unilateral, at or above knee, 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 Social History Tobacco Use Types Packs/Day Years Used Date Smoking Tobacco: Never Assessed Sex and Gender Information Value Date Recorded Sex Assigned at Not on file Legal Sex Male 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
--- OUTSIDE RECORDS SUMMARY | 2025-03-13 06:02 | XMS_ITS | Encounter Summary ---
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
--- OUTSIDE RECORDS SUMMARY | 2025-03-13 06:02 | XMS_ITS | Encounter Summary ---
Author Organization [facility] Address [address] [place] [address] Care Team Providers Care Automobile Wrecker Name Role Phone Cuba Solano MD Primary Care Provider +1 [phone] Encounter Details Date Type Department Care Team (Late st Contact Info) Description 09/06/2000 Outpatient Historical [facility] [place] [address] [place] [address] Encounter for long-term (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 of other medications (Primary Dx); Other convulsions Social History Tobacco Use Types Packs/Day Years Used Date Smoking Tobacco: Never Assessed Sex and Gender Information Value Date Recorded Sex Assigned at Not on file Legal 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
--- OUTSIDE RECORDS SUMMARY | 2025-03-13 06:02 | XMS_ITS | Encounter Summary ---
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
--- OUTSIDE RECORDS SUMMARY | 2025-03-13 06:02 | XMS_ITS | Encounter Summary ---
Author Organization [facility] Address [address] [facility] Attn: [place] [address] Care Team Providers Care Scale Shooter Name Role Phone Cuba Solano MD Primary Care Provider +1 [phone] Encounter Details Date Type Department Care Team (Late st Contact Info) Description 05/31/2001 Outpatient Historical Donte Borrego MD NO ADDRESS ON FILE Social History Tobacco Use Types Packs/Day Years Used Date Smoking Tobacco: Never Assessed Sex and Gender Information Value Date Recorded Sex Assigned at Not on file Legal Sex Male 2:49 AM CURB ATTENDANT Gender Identity Not on file Sexual Orientation Not on file documented as of this encounter Plan of Treatment Not on file documented as of this encounter Visit Diagnoses Not on filedocumented in this encounter Care Teams Scale Shooter Relationship Specialty Start Date End Date Cuba Solano MD PCP - General 07/11/09 documented as of this encounter
--- OUTSIDE RECORDS SUMMARY | 2025-03-13 06:02 | XMS_ITS | Encounter Summary ---
Author Organization [facility] Address [address] [place] [address] Care Team Providers Care Job Boss Name Role Phone Cuba Solano MD Primary Care Provider +1 [phone] Encounter Details Date Type Department Care Team (Latest Contact Info) Description 02/09/2000 Outpatient Historical [facility] Family Medicine [place] [id number] [address] Donte Borrego MD NO ADDRESS ON FILE Unspecified suppurative otitis media (Primary Dx); Acute upper respiratory infections of unspecified site Social History Tobacco Use Types Packs/Day Years Used Date Smoking Tobacco: Never Assessed Sex and Gender Information Value Date Recorded Sex Assigned at Not on file Legal Sex Male 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
--- OUTSIDE RECORDS SUMMARY | 2025-03-13 06:02 | XMS_ITS | Encounter Summary ---
Author Organization [facility] Address [address] [place] [address] Care Team Providers Care Helicopter Mechanic Name Role Phone Cuba Solano MD Primary Care Provider +1 -[phone] Encounter Details Date Type Department Care Team (Latest Contact Info) Description 07/11/2001 Outpatient Historical [facility] Family Medicine [place] [id number] [address] [address] Donte Borrego MD NO ADDRESS ON FILE Benign hypertension (Primary Dx); OSTEOARTHROS NOS-UNSPEC Social History Tobacco Use Types Packs/Day Years Used Date Smoking Tobacco: Never Assessed Sex and Gender Information Value Date Recorded Sex Assigned at Not on file Legal Sex Male 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
--- OUTSIDE RECORDS SUMMARY | 2025-03-13 06:03 | XMS_ITS | Encounter Summary ---
Author Organization [facility] Address [address] [place] [address] Care Team Providers Care Air Purifier Servicer Name Role Phone Cuba Solano MD Primary Care Provider +1 [phone] Encounter Details Date Type Department Care Team (Latest Contact Info) Description 08/29/2001 Outpatient Historical [facility] Family Medicine [place] [address] [address] Donte Borrego MD NO ADDRESS ON FILE Benign hypertension (Primary Dx); TACHYCARDIA NOS Social History Tobacco Use Types Packs/Day Years Used Date Smoking Tobacco: Never Assessed Sex and Gender Information Value Date Recorded Sex Assigned at Not on file Legal 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
--- OUTSIDE RECORDS SUMMARY | 2025-03-13 06:03 | XMS_ITS | Encounter Summary ---
Author Organization [facility] Address [address] [place] [address] Care Team Providers Care Pelletising Extruder Operator Name Role Phone Cuba Solano MD Primary Care Provider +1 [phone] Encounter Details Date Type Department Care Team (Latest Contact Info) Description 10/30/2002 Outpatient Historical [facility] Family Medicine [place] [address] [address] Donte Borrego MD NO ADDRESS ON FILE HYPERLIPIDEMIA NEC/NOS (Primary Dx); HYPERTENSION NOS; ALLERGY, UNSPECIFIED Social History Tobacco Use Types Packs/Day Years Used Date Smoking Tobacco: Never Assessed Sex and Gender Information Value Date Recorded Sex Assigned at Not on file Legal Sex Male 2:49 AM CAD APPLICATION SUPPORT SPECIALIST Gender Identity Not on file Sexual Orientation Not on file documented as of this encounter Plan of Treatment Not on file documented as of this encounter Visit Diagnoses Diagnosis Other and unspecified hyperlipidemia- Primary Unspecified essential hypertension Allergy, unspecified not elsewhere classified documented in this encounter Care Teams Pelletising Extruder Operator Relationship Specialty Start Date End Date Cuba Solano MD PCP - General 07/11/09 documented as of this encounter
--- OUTSIDE RECORDS SUMMARY | 2025-03-13 06:03 | XMS_ITS | Encounter Summary ---
Author Organization [facility] Address [address] [place] [address] Care Team Providers Care Billing And Insurance Coordinator Name Role Phone Cuba Solano MD Primary Care Provider +1 [phone] Encounter Details Date Type Department Care Team (Latest Contact Info) Description 02/01/2004 Outpatient Historical [facility] Family Medicine Angelica [address] [address] Donte Borrego MD NO ADDRESS ON FILE ANEMIA NOS (Primary Dx); AFTERCARE HALF-WAY USE MEDICATN; GOUT NOS Social History Tobacco Use Types Packs/Day Years Used Date Smoking Tobacco: Never Assessed Sex and Gender Information Value Date Recorded Sex Assigned at Not on file Legal Sex Male 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
--- OUTSIDE RECORDS SUMMARY | 2025-03-13 06:03 | XMS_ITS | Encounter Summary ---
Author Organization [facility] Address [address] [place] [address] Care Team Providers Care Manager Labor Delivery Name Role Phone Cuba Solano MD Primary Care Provider +1 [phone] Encounter Details Date Type Department Care Team (Latest Contact Info) Description 05/04/2003 Outpatient Historical [facility] Family Medicine [place] [address]752 [address] [address] Keyona Mccloud, LUCIEN NO ADDRESS ON FILE ACUTE URI NOS (Primary Dx); PERNICIOUS ANEMIA Social History Tobacco Use Types Packs/Day Years Used Date Smoking Tobacco: Never Assessed Sex and Gender Information Value Date Recorded Sex Assigned at Not on file Legal Sex Male 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
--- OUTSIDE RECORDS SUMMARY | 2025-03-13 06:03 | XMS_ITS | Encounter Summary ---
Author Organization [facility] Address [address] [place] [address] Care Team Providers Care Supervisor Home Economics Name Role Phone Cuba Solano MD Primary Care Provider +1 [phone] Encounter Details Date Type Department Care Team (Latest Contact Info) Description 02/25/2004 Outpatient Historical [facility] Family Medicine [place] [address] [address] Keyona Mccloud FNP NO ADDRESS ON FILE DIABETES MELLITUS TYPE II-UNCOMPL (CMS/HCC) (Primary Dx); ACUTE URI NOS Social History Tobacco Use Types Packs/Day Years Used Date Smoking Tobacco: Never Assessed Sex and Gender Information Value Date Recorded Sex Assigned at Not on file Legal Sex Male 2: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
--- OUTSIDE RECORDS SUMMARY | 2025-03-13 06:03 | XMS_ITS | Encounter Summary ---
Author Organization [facility] Address [address] [place] [address] Care Team Providers Care Cisco Network Architect Name Role Phone Cuba Solano MD Primary Care Provider +1 [phone] Encounter Details Date Type Department Care Team (Latest Contact Info) Description 01/25/2002 Outpatient Historical [facility] Family Medicine Angelica [address] [address] Donte Borrego MD NO ADDRESS ON FILE OTHER MALAISE AND FATIGUE (Primary Dx) Social History Tobacco Use Types Packs/Day Years Used Date Smoking Tobacco: Never Assessed Sex and Gender Information Value Date Recorded Sex Assigned at Not on file Legal Sex Male 2:49 AM KIT PLANNER Gender Identity Not on file Sexual Orientation Not on file documented as of this encounter Plan of Treatment Not on file documented as of this encounter Visit Diagnoses Diagnosis Other malaise and fatigue- Primary documented in this encounter Care Teams Cisco Network Architect Relationship Specialty Start Date End Date Cuba Solano MD PCP - General 07/11/09 documented as of this encounter
--- OUTSIDE RECORDS SUMMARY | 2025-03-13 06:03 | XMS_ITS | Encounter Summary ---
Author Organization [facility] Address [address] [place] [address] Care Team Providers Care Biometric Fingerprinting Technician Name Role Phone Cuba Solano MD Primary Care Provider +1 [phone] Encounter Details Date Type Department Care Team (Latest Contact Info) Description 01/03/2004 Outpatient Historical [facility] Family Medicine [place] 9[address]112 [address] [address] Keyona Mccloud, LUCIEN NO ADDRESS ON FILE ANEMIA NOS (Primary Dx) Social History Tobacco Use Types Packs/Day Years Used Date Smoking Tobacco: Never Assessed Sex and Gender Information Value Date Recorded Sex Assigned at Not on file Legal Sex Male 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
--- OUTSIDE RECORDS SUMMARY | 2025-03-13 06:03 | XMS_ITS | Encounter Summary ---
Author Organization [facility] Address [address] [place] [address] Care Team Providers Care Call Center Nurse Name Role Phone Cuba Solano MD Primary Care Provider +1 [phone] Encounter Details Date Type Department Care Team (Latest Contact Info) Description 01/03/2003 Outpatient Historical [facility] Family Medicine [place] [address] [address] Donte Borrego MD NO ADDRESS ON FILE ACUTE PHARYNGITIS (Primary Dx); ACUTE URI NOS Social History Tobacco Use Types Packs/Day Years Used Date Smoking Tobacco: Never Assessed Sex and Gender Information Value Date Recorded Sex Assigned at Not on file Legal Sex Male 2:49 AM OFFAL ROLLER Gender Identity Not on file Sexual Orientation Not on file documented as of this encounter Plan of Treatment Not on file documented as of this encounter Visit Diagnoses Diagnosis Acute pharyngitis- Primary Acute upper respiratory infections of unspecified site documented in this encounter Care Teams Call Center Nurse Relationship Specialty Start Date End Date Cuba Solano MD PCP - General 07/11/09 documented as of this encounter
--- OUTSIDE RECORDS SUMMARY | 2025-03-13 06:03 | XMS_ITS | Encounter Summary ---
Author Organization [facility] Address [address] [place] [address] Care Team Providers Care Coal Wheeler Name Role Phone Cuba Solano MD Primary Care Provider +1 -[phone] Encounter Details Date Type Department Care Team (Latest Contact Info) Description 03/14/2004 Outpatient Historical [facility] [address] [place] [address] [place] [address] Kvng Kilpatrick MD NO ADDRESS ON FILE HYPERSOMNI W SLEEP APNEA (Primary Dx) Social History Tobacco Use Types Packs/Day Years Used Date Smoking Tobacco: Never Assessed Sex and Gender Information Value Date Recorded Sex Assigned at Not on file Legal Sex Male 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
--- OUTSIDE RECORDS SUMMARY | 2025-03-13 06:03 | XMS_ITS | Encounter Summary ---
Author Organization [facility] Address [address] [place] [address] Care Team Providers Care Banquet Lead Name Role Phone Cuba Solano MD Primary Care Provider +1 -[phone] Encounter Details Date Type Department Care Team (Latest Contact Info) Description 11/12/2003 Outpatient Historical [facility] Family Medicine Angel[place] [address] [address] Donte Borrego MD NO ADDRESS ON FILE URIN TRACT INFECTION NOS (Primary Dx) Social History Tobacco Use Types Packs/Day Years Used Date Smoking Tobacco: Never Assessed Sex and Gender Information Value Date Recorded Sex Assigned at Not on file Legal Sex Male 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
--- OUTSIDE RECORDS SUMMARY | 2025-03-13 06:03 | XMS_ITS | Encounter Summary ---
Author Organization [facility] Address [address] [place] [address] Care Team Providers Care Grant Administrator Name Role Phone Cuba Solano MD Primary Care Provider +1 -[phone] Encounter Details Date Type Department Care Team (Latest Contact Info) Description 09/04/2003 Outpatient Historical [facility] Family Medicine Angelica [facility] [address] [address] Huey Upton Jr., MD [address] [place] [address] 248 [facility] [address] [place] [address] OTHER MALAISE AND FATIGUE (Primary Dx) Social History Tobacco Use Types Packs/Day Years Used Date Smoking Tobacco: Never Assessed Sex and Gender Information Value Date Recorded Sex Assigned at Not on file Legal Sex Male 2:49 AM DISCOVERY GUIDE Gender Identity Not on file Sexual Orientation Not on file documented as of this encounter Plan of Treatment Not on file documented as of this encounter Visit Diagnoses Diagnosis Other malaise and fatigue- Primary documented in this encounter Care Teams Grant Administrator Relationship Specialty Start Date End Date Cuba Solano MD PCP - General 07/11/09 documented as of this encounter
--- OUTSIDE RECORDS SUMMARY | 2025-03-13 06:03 | XMS_ITS | Encounter Summary ---
Author Organization [facility] Address [address] [place] [address] Care Team Providers Care Airport Shuttle Driver Name Role Phone Cuba Solano MD Primary Care Provider +1 -[phone] Encounter Details Date Type Department Care Team (Latest Contact Info) Description 11/01/2002 Outpatient Historical [facility] Family Medicine [place] [id number] [address] [address] Donte Borrego MD NO ADDRESS ON FILE OTHER MALAISE AND FATIGUE (Primary Dx) Social History Tobacco Use Types Packs/Day Years Used Date Smoking Tobacco: Never Assessed Sex and Gender Information Value Date Recorded Sex Assigned at Not on file Legal Sex Male 2:49 AM METEOROLOGIST LIAISON Gender Identity Not on file Sexual Orientation [...]
--- OUTSIDE RECORDS SUMMARY | 2025-03-13 06:03 | XMS_ITS | Encounter Summary ---
Author Organization [facility] Address [address] [place] [address] Care Team Providers Care Canoe Inspector Name Role Phone Cuba Solano MD Primary Care Provider +1 -[phone] Encounter Details Date Type Department Care Team (Latest Contact Info) Description 10/02/2002 Outpatient Historical [facility] Family Medicine Angel[place] [address] [address] Donte Borrego MD NO ADDRESS ON FILE ANEMIA NOS (Primary Dx) Social History Tobacco Use Types Packs/Day Years Used Date Smoking Tobacco: Never Assessed Sex and Gender Information Value Date Recorded Sex Assigned at Not on file Legal Sex Male 2:49 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
--- OUTSIDE RECORDS SUMMARY | 2025-03-13 06:03 | XMS_ITS | Encounter Summary ---
Author Organization [facility] Address [address] [place] [address] Care Team Providers Care Training Program Manager Name Role Phone Cuba Solano MD Primary Care Provider +1 [phone] Encounter Details Date Type Department Care Team (Latest Contact Info) Description 03/05/2004 Outpatient Historical [facility] Family Medicine Angel[place] [address] [address] Donte Borrego MD NO ADDRESS ON FILE DIABETES MELLITUS TYPE II UNCONTR UNCOMPL (Primary Dx); ACUTE URI NOS Social History Tobacco Use Types Packs/Day Years Used Date Smoking Tobacco: Never Assessed Sex and Gender Information Value Date Recorded Sex Assigned at Not on file Legal Sex Male 2:49 AM PARTS ROOM CLERK Gender Identity Not on file Sexual Orientation Not on file documented as of this encounter Plan of Treatment Not on file documented as of this encounter Visit Diagnoses Diagnosis Type II or unspecified type diabetes mellitus 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, uncontrolled- Primary Acute upper respiratory infections of unspecified site documented in this encounter Care Teams Training Program Manager Relationship Specialty Start Date End Date Cuba Solano MD PCP - General 07/11/09 documented as of this encounter
--- OUTSIDE RECORDS SUMMARY | 2025-03-13 06:03 | XMS_ITS | Encounter Summary ---
Author Organization [facility] Address [address] [place] [address] Care Team Providers Care Otm Consultant Name Role Phone Cuba Solano MD Primary Care Provider +1 -[phone] Encounter Details Date Type Department Care Team (Latest Contact Info) Description 10/16/2003 Outpatient Historical [facility] Endoscopy [address] 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
--- OUTSIDE RECORDS SUMMARY | 2025-03-13 06:03 | XMS_ITS | Encounter Summary ---
Author Organization [facility] Address [address] [place] [address] Care Team Providers Care Roll Skinner Name Role Phone Cuba Solano MD Primary Care Provider +1 -[phone] Encounter Details Date Type Department Care Team (Latest Contact Info) Description 10/03/2001 Outpatient Historical [facility] Family Medicine [place] [address] [address] Donte Borrego MD NO ADDRESS ON FILE HYPERTENSION NOS (Primary Dx); ALLERGY, UNSPECIFIED; AMPUT ABOVE KNEE, UNILAT; OSTEOARTHROS NOS-UNSPEC Social History Tobacco Use Types Packs/Day Years Used Date Smoking Tobacco: Never Assessed Sex and Gender Information Value Date Recorded Sex Assigned at Not on file Legal Sex Male 2:49 AM SUPERVISOR CORE SHOP Gender Identity Not on file Sexual Orientation [...] site documented in this encounter Care Teams Roll Skinner Relationship Specialty Start Date End Date Cuba Solano MD PCP - General 07/11/09 documented as of this encounter
--- OUTSIDE RECORDS SUMMARY | 2025-03-13 06:03 | XMS_ITS | Encounter Summary ---
Author Organization [facility] Address [address] [place] [address] Care Team Providers Care General Production Manager Name Role Phone Cuba Solano MD Primary Care Provider +1 -[phone] Encounter Details Date Type Department Care Team (Latest Contact Info) Description 12/04/2003 Outpatient Historical [facility] Family Medicine [place] [address] [address] Donte Borrego MD NO ADDRESS ON FILE URIN TRACT INFECTION NOS (Primary Dx) Social History Tobacco Use Types Packs/Day Years Used Date Smoking Tobacco: Never Assessed Sex and Gender Information Value Date Recorded Sex Assigned at Not on file Legal Sex Male 2:49 AM CORPORATE RESPONSIBILITY OFFICER Gender Identity Not on file Sexual Orientation Not on file documented as of this encounter Plan of Treatment Not on file documented as of this encounter Visit Diagnoses Diagnosis Urinary tract infection, site not specified- Primary documented in this encounter Care Teams General Production Manager Relationship Specialty Start Date End Date Cuba Solano MD PCP - General 07/11/09 documented as of this encounter
--- OUTSIDE RECORDS SUMMARY | 2025-03-13 06:03 | XMS_ITS | Encounter Summary ---
Author Organization [facility] Address [address] [place] [address] Care Team Providers Care Editor City Name Role Phone Cuba Solano MD Primary Care Provider +1 -[phone] Encounter Details Date Type Department Care Team (Late st Contact Info) Description 11/27/2003 Outpatient Historical [facility] Family Medicine [place] 6[address]802 [address] [address] Social History Tobacco Use Types Packs/Day Years Used Date Smoking Tobacco: Never Assessed Sex and Gender Information Value Date Recorded Sex Assigned at Not on file Legal Sex Male 2:49 AM HEALTH NURSE Gender Identity Not on file Sexual Orientation Not on file documented as of this encounter Plan of Treatment Not on file documented as of this encounter Visit Diagnoses Not on filedocumented in this encounter Care Teams Editor City Relationship Specialty Start Date End Date Cuba Solano MD PCP - General 07/11/09 documented as of this encounter
--- OUTSIDE RECORDS SUMMARY | 2025-03-13 06:03 | XMS_ITS | Encounter Summary ---
Author Organization [facility] Address [address] [place] [address] Care Team Providers Care Shop Superintendent Name Role Phone Cuba Solano MD Primary Care Provider +1 [phone] Encounter Details Date Type Department Care Team (Latest Contact Info) Description 08/07/2003 Outpatient Historical [facility] Family Medicine [place] [id number] [address] Donte Borrego MD NO ADDRESS ON FILE LUPUS ERYTHEMATOSUS (Primary Dx); ALLERGY, UNSPECIFIED Social History Tobacco Use Types Packs/Day Years Used Date Smoking Tobacco: Never Assessed Sex and Gender Information Value Date Recorded Sex Assigned at Not on file Legal Sex Male 2:49 AM EMPLOYMENT DIRECTOR Gender Identity Not on file Sexual Orientation Not on file documented as of this encounter Plan of Treatment Not on file documented as of this encounter Visit Diagnoses Diagnosis Lupus erythematosus- Primary Allergy, unspecified not elsewhere classified documented in this encounter Care Teams Shop Superintendent Relationship Specialty Start Date End Date Cuba Solano MD PCP - General 07/11/09 documented as of this encounter
--- OUTSIDE RECORDS SUMMARY | 2025-03-13 06:03 | XMS_ITS | Encounter Summary ---
Author Organization [facility] Address [address] [place] [address] Care Team Providers Care Psychologist Industrial Organizational Name Role Phone Cuba Solano MD Primary Care Provider +1 [phone] Encounter Details Date Type Department Care Team (Latest Contact Info) Description 04/10/2002 Outpatient [facility] Family Medicine [place] [address] [address] Donte Borrego MD NO ADDRESS ON FILE B-COMPLEX DEFIC NEC (Primary Dx); OTHER MALAISE AND FATIGUE; HYPERLIPIDEMIA NEC/NOS Social History Tobacco Use Types Packs/Day Years Used Date Smoking Tobacco: Never Assessed Sex and Gender Information Value Date Recorded Sex Assigned at Not on file Legal Sex Male 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
--- OUTSIDE RECORDS SUMMARY | 2025-03-13 06:03 | XMS_ITS | Encounter Summary ---
Author Organization [facility] Address [address] [place] [address] Care Team Providers Care Prosthetic Makeup Designer Name Role Phone Cuba Solano MD Primary Care Provider +1 [phone] Encounter Details Date Type Department Care Team (Latest Contact Info) Description 08/03/2002 Outpatient Historical [facility] Family Medicine [place] [id number] [address] Donte Borrego MD NO ADDRESS ON FILE OTHER MALAISE AND FATIGUE (Primary Dx) Social History Tobacco Use Types Packs/Day Years Used Date Smoking Tobacco: Never Assessed Sex and Gender Information Value Date Recorded Sex Assigned at Not on file Legal Sex Male 2:49 AM SYSTEM DESIGNER Gender Identity Not on file Sexual Orientation Not on file documented as of this encounter Plan of Treatment Not on file documented as of this encounter Visit Diagnoses Diagnosis Other malaise and fatigue- Primary documented in this encounter Care Teams Prosthetic Makeup Designer Relationship Specialty Start Date End Date Cuba Solano MD PCP - General 07/11/09 documented as of this encounter
--- OUTSIDE RECORDS SUMMARY | 2025-03-13 06:03 | XMS_ITS | Encounter Summary ---
Author Organization [facility] Address [address] [place] [address] Care Team Providers Care Jewelry Sorter Name Role Phone Cuba Solano MD Primary Care Provider +1 [phone] Encounter Details Date Type Department Care Team (Latest Contact Info) Description 11/02/2003 Outpatient Historical [facility] Family Medicine [place] [id number] [address] Donte Borrego MD NO ADDRESS ON FILE HYPERTENSION NOS (Primary Dx) Social History Tobacco Use Types Packs/Day Years Used Date Smoking Tobacco: Never Assessed Sex and Gender Information Value Date Recorded Sex Assigned at Not on file Legal Sex Male 2:49 AM INSOLE RASPER Gender Identity Not on file Sexual Orientation Not on file documented as of this encounter Plan of Treatment Not on file documented as of this encounter Visit Diagnoses Diagnosis Unspecified essential hypertension- Primary documented in this encounter Care Teams Jewelry Sorter Relationship Specialty Start Date End Date Cuba Solano MD PCP - General 07/11/09 documented as of this encounter
--- OUTSIDE RECORDS SUMMARY | 2025-03-13 06:03 | XMS_ITS | Encounter Summary ---
Author Organization [facility] Address [address] [place] [address] Care Team Providers Care Senior Compliance Analyst Name Role Phone Cuba Solano MD Primary Care Provider +1 [phone] Encounter Details Date Type Department Care Team (Latest Contact Info) Description 10/12/2003 Outpatient Historical [facility] Family Medicine [place] [address] [address] Donte Borrego MD NO ADDRESS ON FILE GASTROINTEST HEMORR NOS (Primary Dx) Social History Tobacco Use Types Packs/Day Years Used Date Smoking Tobacco: Never Assessed Sex and Gender Information Value Date Recorded Sex Assigned at Not on file Legal Sex Male 2:49 AM SUPERVISOR RESEARCH KENNEL Gender Identity Not on file Sexual Orientation Not on file documented as of this encounter Plan of Treatment Not on file documented as of this encounter Visit Diagnoses Diagnosis Hemorrhage of gastrointestinal tract, unspecified- Primary documented in this encounter Care Teams Senior Compliance Analyst Relationship Specialty Start Date End Date Cuba Solano MD PCP - General 07/11/09 documented as of this encounter
--- OUTSIDE RECORDS SUMMARY | 2025-03-13 06:03 | XMS_ITS | Encounter Summary ---
Author Organization [facility] Address [address] [place] [address] Care Team Providers Care Cad Engineer Name Role Phone Cuba Solano MD Primary Care Provider +1 [phone] Encounter Details Date Type Department Care Team (Latest Contact Info) Description 09/14/2001 Outpatient Historical [facility] Family Medicine Angel[place] [address] [address] Donte Borrego MD NO ADDRESS ON FILE UNSPECIFIED VIRAL INFECTION (Primary Dx); ALLERGY, UNSPECIFIED; HYPERTENSION NOS; TACHYCARDIA NOS Social History Tobacco Use Types Packs/Day Years Used Date Smoking Tobacco: Never Assessed Sex and Gender Information Value Date Recorded Sex Assigned at Not on file Legal Sex Male 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
--- OUTSIDE RECORDS SUMMARY | 2025-03-13 06:03 | XMS_ITS | Encounter Summary ---
Author Organization [facility] Address [address] [place] [address] Care Team Providers Care Fax Machine Repairer Name Role Phone Cuba Solano MD Primary Care Provider +1 [phone] Encounter Details Date Type Department Care Team (Latest Contact Info) Description 01/05/2003 Outpatient Historical [facility] Cardiovascular Services [address] [place] [address] Non-Staff, Physician NO ADDRESS ON FILE PAIN IN LIMB (Primary Dx) Social History Tobacco Use Types Packs/Day Years Used Date Smoking Tobacco: Never Assessed Sex and Gender Information Value Date Recorded Sex Assigned at Not on file Legal Sex Male 2:49 AM WELT EDGE ROUNDER Gender Identity Not on file Sexual Orientation Not on file documented as of this encounter Plan of Treatment Not on file documented as of this encounter Visit Diagnoses Diagnosis Pain in limb- Primary documented in this encounter Care Teams Fax Machine Repairer Relationship Specialty Start Date End Date Cuba Solano MD PCP - General 07/11/09 documented as of this encounter
--- OUTSIDE RECORDS SUMMARY | 2025-03-13 06:03 | XMS_ITS | Encounter Summary ---
Author Organization [facility] Address [address] [place] [address] Care Team Providers Care Ivory Carver Name Role Phone Cuba Solano MD Primary Care Provider +1 [phone] Encounter Details Date Type Department Care Team (Latest Contact Info) Description 11/18/2001 Outpatient Historical [facility] Family Medicine Angel[place] [address] [address] Donte Borrego MD NO ADDRESS ON FILE CONJUNCTIVITIS NOS (Primary Dx) Social History Tobacco Use Types Packs/Day Years Used Date Smoking Tobacco: Never Assessed Sex and Gender Information Value Date Recorded Sex Assigned at Not on file Legal Sex Male 2:49 AM WORDPRESS DEVELOPER Gender Identity Not on file Sexual Orientation Not on file documented as of this encounter Plan of Treatment Not on file documented as of this encounter Visit Diagnoses Diagnosis Conjunctivitis unspecified- Primary Conjunctivitis, unspecified documented in this encounter Care Teams Ivory Carver Relationship Specialty Start Date End Date Cuba Solano MD PCP - General 07/11/09 documented as of this encounter
--- OUTSIDE RECORDS SUMMARY | 2025-03-13 06:03 | XMS_ITS | Encounter Summary ---
Author Organization [facility] Address [address] [place] [address] Care Team Providers Care Chlorinator Operator Name Role Phone Cuba Solano MD Primary Care Provider +1 [phone] Encounter Details Date Type Department Care Team (Latest Contact Info) Description 09/01/2002 Outpatient Historical [facility] Family Medicine [place] [address] [address] Donte Borrego MD NO ADDRESS ON FILE ANEMIA NOS (Primary Dx) Social History Tobacco Use Types Packs/Day Years Used Date Smoking Tobacco: Never Assessed Sex and Gender Information Value Date Recorded Sex Assigned at Not on file Legal Sex Male 2:49 AM UNDER BASTER Gender Identity Not on file Sexual Orientation Not on file documented as of this encounter Plan of Treatment Not on file documented as of this encounter Visit Diagnoses Diagnosis Anemia, unspecified- Primary documented in this encounter Care Teams Chlorinator Operator Relationship Specialty Start Date End Date Cuba Solano MD PCP - General 07/11/09 documented as of this encounter
--- OUTSIDE RECORDS SUMMARY | 2025-03-13 06:03 | XMS_ITS | Encounter Summary ---
Author Organization [facility] Address [address] [place] [address] Care Team Providers Care Prepared Foods Supervisor Name Role Phone Cuba Solano MD Primary Care Provider +1 -[phone] Encounter Details Date Type Department Care Team (Latest Contact Info) Description 05/04/2002 Outpatient Historical [facility] Family Medicine [place] [address] [address] Donte Borrego MD NO ADDRESS ON FILE OTALGIA NOS (Primary Dx) Social History Tobacco Use Types Packs/Day Years Used Date Smoking Tobacco: Never Assessed Sex and Gender Information Value Date Recorded Sex Assigned at Not on file Legal 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
--- OUTSIDE RECORDS SUMMARY | 2025-03-13 06:03 | XMS_ITS | Encounter Summary ---
Author Organization [facility] Address [address] [place] [address] Care Team Providers Care Dress Cap Maker Name Role Phone Cuba Solano MD Primary Care Provider +1 [phone] Encounter Details Date Type Department Care Team (Latest Contact Info) Description 11/07/2001 Outpatient [facility] Family Medicine [place] [id number] [address] Keyona Mccloud, LUCIEN NO ADDRESS ON FILE HORDEOLUM EXTERNUM (Primary Dx); ALLERGY, UNSPECIFIED Social History Tobacco Use Types Packs/Day Years Used Date Smoking Tobacco: Never Assessed Sex and Gender Information Value Date Recorded Sex Assigned at Not on file Legal 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
--- OUTSIDE RECORDS SUMMARY | 2025-03-13 06:03 | XMS_ITS | Encounter Summary ---
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 Social History Tobacco Use Types Packs/Day Years Used Date Smoking Tobacco: Never Assessed Sex and Gender Information Value Date Recorded Sex Assigned at Not on file Legal Sex Male 2:49 AM ROLL SKINNER Gender Identity Not on file Sexual Orientation Not on file documented as of this encounter Plan of Treatment Not on file documented as of this encounter Visit Diagnoses Diagnosis Other and unspecified hyperlipidemia- Primary Unspecified vitamin B deficiency Encounter for long-term (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 of other medications documented in this encounter Care Teams Fiberline Supervisor Relationship Specialty Start Date End Date Cuba Solano MD PCP - General 07/11/09 documented as of this encounter
--- OUTSIDE RECORDS SUMMARY | 2025-03-13 06:03 | XMS_ITS | Encounter Summary ---
Author Organization [facility] Address [address] [place] [address] Care Team Providers Care Collar Stitcher Name Role Phone Cuba Solano MD Primary Care Provider +1 [phone] Encounter Details Date Type Department Care Team (Latest Contact Info) Description 01/18/2002 Outpatient Historical [facility] Family Medicine Angel[place] [address] [address] Donte Borrego MD NO ADDRESS ON FILE DISEASES OF LIPS (Primary Dx); ALLERGY, UNSPECIFIED Social History Tobacco Use Types Packs/Day Years Used Date Smoking Tobacco: Never Assessed Sex and Gender Information Value Date Recorded Sex Assigned at Not on file Legal Sex Male 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
--- OUTSIDE RECORDS SUMMARY | 2025-03-13 06:03 | XMS_ITS | Encounter Summary ---
Author Organization [facility] Address [address] [place] [address] Care Team Providers Care Orthotic/Prosthetic Clinician Name Role Phone Cuba Solano MD Primary Care Provider +1 [phone] Encounter Details Date Type Department Care Team (Latest Contact Info) Description 10/02/2003 Outpatient Historical [facility] Family Medicine [place] [id number] [address] Keyona Mccloud, LUCIEN NO ADDRESS ON FILE HYPERLIPIDEMIA NEC/NOS (Primary Dx) Social History Tobacco Use Types Packs/Day Years Used Date Smoking Tobacco: Never Assessed Sex and Gender Information Value Date Recorded Sex Assigned at Not on file 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
--- OUTSIDE RECORDS SUMMARY | 2025-03-13 06:03 | XMS_ITS | Encounter Summary ---
Author Organization [facility] Address [address] [place] [address] Care Team Providers Care Harvest Manager Name Role Phone Cuba Solano MD Primary Care Provider +1 -[phone] Encounter Details Date Type Department Care Team (Latest Contact Info) Description 02/01/2003 Outpatient Historical [facility] Family Medicine [place] [facility] [address] [address] Huey Upton Jr., MD [address] [place] [address] 248 [facility] [address] [place] [address] Benign hypertension (Primary Dx); ALLERGY, UNSPECIFIED Social History Tobacco Use Types Packs/Day Years Used Date Smoking Tobacco: Never Assessed Sex and Gender Information Value Date Recorded Sex Assigned at Not on file Legal Sex Male 2:[address]HICLE OPERATOR ROAD 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
--- OUTSIDE RECORDS SUMMARY | 2025-03-13 06:03 | XMS_ITS | Encounter Summary ---
Author Organization [facility] Address [address] [place] [address] Care Team Providers Care Pet Counselor Name Role Phone Cuba Solano MD Primary Care Provider +1 -[phone] Encounter Details Date Type Department Care Team (Latest Contact Info) Description 07/17/2003 Outpatient Historical [facility] Family Medicine [place] [address] [address] Donte Borrego MD NO ADDRESS ON FILE DERMATITIS NOS (Primary Dx); ALLERGY, UNSPECIFIED Social History Tobacco Use Types Packs/Day Years Used Date Smoking Tobacco: Never Assessed Sex and Gender Information Value Date Recorded Sex Assigned at Not on file Legal Sex Male 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
--- OUTSIDE RECORDS SUMMARY | 2025-03-13 06:03 | XMS_ITS | Encounter Summary ---
Author Organization [facility] Address [address] [place] [address] Care Team Providers Care Forest Patrolman Name Role Phone Cuba Solano MD Primary Care Provider +1 -[phone] Encounter Details Date Type Department Care Team (Latest Contact Info) Description 10/16/2003 Outpatient Historical [facility]- [place] [address] [facility] [address] [place] [address] Sandro Haines MD [address] [facility] [address] [place] [address] MELENA, BLOOD IN STOOL (Primary Dx) Social History Tobacco Use Types Packs/Day Years Used Date Smoking Tobacco: Never Assessed Sex and Gender Information Value Date Recorded Sex Assigned at Not on file Legal Sex Male 2: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
--- OUTSIDE RECORDS SUMMARY | 2025-03-13 06:03 | XMS_ITS | Encounter Summary ---
Author Organization [facility] Address [address] [place] [address] Care Team Providers Care New Business Clerk Name Role Phone Cuba Solano MD Primary Care Provider +1 -[phone] Encounter Details Date Type Department Care Team (Latest Contact Info) Description 01/04/2002 Outpatient Historical [facility] Family Medicine [place] [address] [address] Donte Borrego MD NO ADDRESS ON FILE ACUTE PHARYNGITIS (Primary Dx); ALLERGIC RHINITIS NEC Social History Tobacco Use Types Packs/Day Years Used Date Smoking Tobacco: Never Assessed Sex and Gender Information Value Date Recorded Sex Assigned at Not on file Legal Sex Male 2: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
--- OUTSIDE RECORDS SUMMARY | 2025-03-13 06:03 | XMS_ITS | Encounter Summary ---
Author Organization [facility] Address [address] [place] [address] Care Team Providers Care Wig Dresser Name Role Phone Cuba Solano MD Primary Care Provider +1 -[phone] Encounter Details Date Type Department Care Team (Latest Contact Info) Description 07/03/2002 Outpatient Historical [facility] Family Medicine [place] [address] [address] Donte Borrego MD NO ADDRESS ON FILE OTHER MALAISE AND FATIGUE (Primary Dx) Social History Tobacco Use Types Packs/Day Years Used Date Smoking Tobacco: Never Assessed Sex and Gender Information Value Date Recorded Sex Assigned at Not on file Legal Sex Male 2: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
--- OUTSIDE RECORDS SUMMARY | 2025-03-13 06:03 | XMS_ITS | Encounter Summary ---
Author Organization [facility] Address [address] [place] [address] Care Team Providers Care Fringe Knotter Name Role Phone Cuba Solano MD Primary Care Provider +1 [phone] Encounter Details Date Type Department Care Team (Latest Contact Info) Description 02/15/2004 Outpatient Historical [facility] Family Medicine [place] [id number] [address] Keyona Mccloud, LUCIEN NO ADDRESS ON FILE Vaccine for influenza (Primary Dx); ABN BLOOD CHEMISTRY NEC; URINARY FREQUENCY Social History Tobacco Use Types Packs/Day Years Used Date Smoking Tobacco: Never Assessed Sex and Gender Information Value Date Recorded Sex Assigned at Not on file Legal Sex Male 2: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
--- OUTSIDE RECORDS SUMMARY | 2025-03-13 06:03 | XMS_ITS | Encounter Summary ---
Author Organization [facility] Address [address] [place] [address] Care Team Providers Care Stock Taker Name Role Phone Cuba Solano MD Primary Care Provider +1 [phone] Encounter Details Date Type Department Care Team (Latest Contact Info) Description 03/05/2003 Outpatient Historical [facility] Family Medicine [place] [address] [address] Keyona Mccloud, LUCIEN NO ADDRESS ON FILE OTHER MALAISE AND FATIGUE (Primary Dx) Social History Tobacco Use Types Packs/Day Years Used Date Smoking Tobacco: Never Assessed Sex and Gender Information Value Date Recorded Sex Assigned at Not on file 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
--- OUTSIDE RECORDS SUMMARY | 2025-03-13 06:03 | XMS_ITS | Encounter Summary ---
Author Organization [facility] Address [address] [place] [address] Care Team Providers Care Wired Music Operator Name Role Phone Cuba Solano MD Primary Care Provider +1 [phone] Encounter Details Date Type Department Care Team (Latest Contact Info) Description 12/25/2003 Outpatient Historical [facility] Family Medicine [place] [address] [address] Donte Borrego MD NO ADDRESS ON FILE EDEMA (Primary Dx); APNEA; POLYP OF NASAL CAVITY Social History Tobacco Use Types Packs/Day Years Used Date Smoking Tobacco: Never Assessed Sex and Gender Information Value Date Recorded Sex Assigned at Not on file Legal Sex Male 2: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
--- OUTSIDE RECORDS SUMMARY | 2025-03-13 06:03 | XMS_ITS | Encounter Summary ---
Author Organization [facility] Address [address] [place] [address] Care Team Providers Care Administrative Law Judge Name Role Phone Cuba Solano MD Primary Care Provider +1 [phone] Encounter Details Date Type Department Care Team (Latest Contact Info) Description 11/01/2001 Outpatient Historical [facility] Family Medicine [place] [address] [address] Donte Borrego MD NO ADDRESS ON FILE ACUTE SINUSITIS NOS (Primary Dx); ALLERGIC RHINITIS NEC; Benign hypertension Social History Tobacco Use Types Packs/Day Years Used Date Smoking Tobacco: Never Assessed Sex and Gender Information Value Date Recorded Sex Assigned at Not on file Legal Sex Male 2: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
--- OUTSIDE RECORDS SUMMARY | 2025-03-13 06:03 | XMS_ITS | Encounter Summary ---
Author Organization [facility] Address [address] [place] [address] Care Team Providers Care Commodities Broker Name Role Phone Cuba Solano MD Primary Care Provider +1 [phone] Encounter Details Date Type Department Care Team (Latest Contact Info) Description 10/23/2003 Outpatient Historical [facility] Family Medicine [place] [address] [address] Donte Borrego MD NO ADDRESS ON FILE TOBACCO USE DISORDER (Primary Dx); ALLERGY, UNSPECIFIED Social History Tobacco Use Types Packs/Day Years Used Date Smoking Tobacco: Never Assessed Sex and Gender Information Value Date Recorded Sex Assigned at Not on file Legal Sex Male 2:49 AM LAST SAWYER Gender Identity Not on file Sexual Orientation Not on file documented as of this encounter Plan of Treatment Not on file documented as of this encounter Visit Diagnoses Diagnosis Tobacco use disorder- Primary Allergy, unspecified not elsewhere classified documented in this encounter Care Teams Commodities Broker Relationship Specialty Start Date End Date Cuba Solano MD PCP - General 07/11/09 documented as of this encounter
--- OUTSIDE RECORDS SUMMARY | 2025-03-13 06:03 | XMS_ITS | Encounter Summary ---
Author Organization [facility] Address [address] [place] [address] Care Team Providers Care Ordering Machine Operator Name Role Phone Cuba Solano MD Primary Care Provider +1 [phone] Encounter Details Date Type Department Care Team (Latest Contact Info) Description 04/13/2002 Outpatient Historical [facility] Family Medicine [place] [address] [address] Donte Borrego MD NO ADDRESS ON FILE ACUTE URI NOS (Primary Dx) Social History Tobacco Use Types Packs/Day Years Used Date Smoking Tobacco: Never Assessed Sex and Gender Information Value Date Recorded Sex Assigned at Not on file Legal Sex Male 2: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
--- OUTSIDE RECORDS SUMMARY | 2025-03-13 06:03 | XMS_ITS | Encounter Summary ---
Author Organization [facility] Address [address] [place] [address] Care Team Providers Care Weed Science Research Technician Name Role Phone Cuba Solano MD Primary Care Provider +1 [phone] Encounter Details Date Type Department Care Team (Latest Contact Info) Description 07/02/2003 Outpatient Historical [facility] Family Medicine [place] [address] [address] Keyona Mccloud, GUEST SERVICES AMBASSADOR NO ADDRESS ON FILE ALLERGY, UNSPECIFIED (Primary Dx) Social History Tobacco Use Types Packs/Day Years Used Date Smoking Tobacco: Never Assessed Sex and Gender Information Value Date Recorded Sex Assigned at Not on file Legal Sex Male 2:49 AM 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
--- OUTSIDE RECORDS SUMMARY | 2025-03-13 06:03 | XMS_ITS | Encounter Summary ---
Author Organization [facility] Address [address] Attn: [place] [address] Care Team Providers Care Broke Beater Machine Operator Name Role Phone Cuba Solano MD Primary Care Provider +1 [phone] Encounter Details Date Type Department Care Team (Late st Contact Info) Description 10/03/2001 Outpatient Historical Donte Borrego MD NO ADDRESS ON FILE Social History Tobacco Use Types Packs/Day Years Used Date Smoking Tobacco: Never Assessed Sex and Gender Information Value Date Recorded Sex Assigned at Not on file Legal Sex Male 2:49 AM COUNTY DIRECTOR Gender Identity Not on file Sexual Orientation Not on file documented as of this encounter Plan of Treatment Not on file documented as of this encounter Visit Diagnoses Not on filedocumented in this encounter Care Teams Broke Beater Machine Operator Relationship Specialty Start Date End Date Cuba Solano MD PCP - General 07/11/09 documented as of this encounter
--- OUTSIDE RECORDS SUMMARY | 2025-03-13 06:03 | XMS_ITS | Encounter Summary ---
Author Organization [facility] Address [address] [place] [address] Care Team Providers Care Medical Or Surgical Instrument Maker Name Role Phone Cuba Solano MD Primary Care Provider +1 [phone] Encounter Details Date Type Department Care Team (Latest Contact Info) Description 09/15/2000 Outpatient Historical [facility] Family Medicine [place] [address]14[address] [address] Donte Borrego MD NO ADDRESS ON FILE Unspecified essential hypertension (Primary Dx); Type II or unspecified type diabetes mellitus 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, not stated as uncontrolled Social History Tobacco Use Types Packs/Day Years Used Date Smoking Tobacco: Never Assessed Sex and Gender Information Value Date Recorded Sex Assigned at Not on file Legal Sex Male 2:49 AM 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
--- OUTSIDE RECORDS SUMMARY | 2025-03-13 06:03 | XMS_ITS | Encounter Summary ---
Author Organization [facility] Address [address] [place] [address] Care Team Providers Care Sleep Tech Name Role Phone Cuba Solano MD Primary Care Provider +1 [phone] Encounter Details Date Type Department Care Team (Latest Contact Info) Description 04/10/2002 Outpatient Historical [facility] Family Medicine [place] [address] [address] Donte Borrego MD NO ADDRESS ON FILE HYPERLIPIDEMIA NEC/NOS (Primary Dx) Social History Tobacco Use Types Packs/Day Years Used Date Smoking Tobacco: Never Assessed Sex and Gender Information Value Date Recorded Sex Assigned at Not on file Legal Sex Male 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
--- OUTSIDE RECORDS SUMMARY | 2025-03-13 06:03 | XMS_ITS | Encounter Summary ---
Author Organization [facility] Address [address] [place] [address] Care Team Providers Care Laborer Cheesemaking Name Role Phone Cuba Solano MD Primary Care Provider +1 [phone] Encounter Details Date Type Department Care Team (Latest Contact Info) Description 11/02/2003 Outpatient Historical [facility] Family Medicine [place] [address] [address] Donte Borrego MD NO ADDRESS ON FILE ANEMIA NOS (Primary Dx) Social History Tobacco Use Types Packs/Day Years Used Date Smoking Tobacco: Never Assessed Sex and Gender Information Value Date Recorded Sex Assigned at Not on file Legal Sex Male 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
--- OUTSIDE RECORDS SUMMARY | 2025-03-13 06:03 | XMS_ITS | Encounter Summary ---
Author Organization [facility] Address [address] [place] [address] Care Team Providers Care Stress Test Technician Name Role Phone Cuba Solano MD Primary Care Provider +1 -[phone] Encounter Details Date Type Department Care Team (Latest Contact Info) Description 02/01/2002 Outpatient Historical [facility] Family Medicine [place] [address] [address] Donte Borrego MD NO ADDRESS ON FILE HYPERTENSION NOS (Primary Dx); LIPOMA NOS; DISEASES OF LIPS Social History Tobacco Use Types Packs/Day Years Used Date Smoking Tobacco: Never Assessed Sex and Gender Information Value Date Recorded Sex Assigned at Not on file Legal Sex Male 2:49 AM HEADWAITRESS Gender Identity Not on file Sexual Orientation Not on file documented as of this encounter Plan of Treatment Not on file documented as of this encounter Visit Diagnoses Diagnosis Unspecified essential hypertension- Primary Lipoma of unspecified site Diseases of lips documented in this encounter Care Teams Stress Test Technician Relationship Specialty Start Date End Date Cuba Solano MD PCP - General 07/11/09 documented as of this encounter
--- OUTSIDE RECORDS SUMMARY | 2025-03-13 06:03 | XMS_ITS | Encounter Summary ---
Author Organization [facility] Address [address] [place] [address] Care Team Providers Care Automobile Drivers Name Role Phone Cuba Solano MD Primary Care Provider +1 [phone] Encounter Details Date Type Department Care Team (Latest Contact Info) Description 05/04/2002 Outpatient Historical [facility] Family Medicine [place] [address] [address] Donte Borrego MD NO ADDRESS ON FILE Benign hypertension (Primary Dx); OTALGIA NOS; INFEC OTITIS EXTERNA NOS Social History Tobacco Use Types Packs/Day Years Used Date Smoking Tobacco: Never Assessed Sex and Gender Information Value Date Recorded Sex Assigned at Not on file 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
--- OUTSIDE RECORDS SUMMARY | 2025-03-13 06:03 | XMS_ITS | Encounter Summary ---
Author Organization [facility] Address [address] [place] [address] Care Team Providers Care Online User Experience Strategist Name Role Phone Cuba Solano MD Primary Care Provider +1 [phone] Encounter Details Date Type Department Care Team (Latest Contact Info) Description 10/02/[address] 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
--- OUTSIDE RECORDS SUMMARY | 2025-03-13 06:03 | XMS_ITS | Encounter Summary ---
Author Organization [facility] Address [address] [place] [address] Care Team Providers Care Construction Administrator Name Role Phone Cuba Solano MD Primary Care Provider +1 [phone] Encounter Details Date Type Department Care Team (Latest Contact Info) Description 08/09/2002 Outpatient Historical [facility] Family Medicine [place] [address] [address] Donte Borrego MD NO ADDRESS ON FILE Benign hypertension (Primary Dx); ALLERGY, UNSPECIFIED Social History Tobacco Use Types Packs/Day Years Used Date Smoking Tobacco: Never Assessed Sex and Gender Information Value Date Recorded Sex Assigned at Not on file Legal 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
--- OUTSIDE RECORDS SUMMARY | 2025-03-13 06:03 | XMS_ITS | Encounter Summary ---
Author Organization [facility] Address [address] [place] [address] Care Team Providers Care Mainspring Reverse Winder Name Role Phone Cuba Solano MD Primary Care Provider +1 -[phone] Encounter Details Date Type Department Care Team (Latest Contact Info) Description 09/11/2003 Outpatient [facility] Family Medicine [place] 0[address] [address] Keyona Mccloud, LUCIEN NO ADDRESS ON FILE ALLERGY, UNSPECIFIED (Primary Dx); DERMATITIS NOS; HYPERTENSION NOS; HYPERLIPIDEMIA NEC/NOS Social History Tobacco Use Types Packs/Day Years Used Date Smoking Tobacco: Never Assessed Sex and Gender Information Value Date Recorded Sex Assigned at Not on file Legal Sex Male 2:49 AM CENTRAL SCHEDULER Gender Identity Not on file Sexual Orientation Not on file documented as of this encounter Plan of Treatment Not on file documented as of this encounter Visit Diagnoses Diagnosis Allergy, unspecified not elsewhere classified- Primary Contact dermatitis and other eczema, due to unspecified cause Unspecified essential hypertension Other and unspecified hyperlipidemia documented in this encounter Care Teams Mainspring Reverse Winder Relationship Specialty Start Date End Date Cuba Solano MD PCP - General 07/11/09 documented as of this encounter
--- OUTSIDE RECORDS SUMMARY | 2025-03-13 06:03 | XMS_ITS | Encounter Summary ---
Author Organization [facility] Address [address] [place] [address] Care Team Providers Care Equal Opportunity Assistant Name Role Phone Cuab Solano MD Primary Care Provider +1 -[phone] Encounter Details Date Type Department Care Team (Latest Contact Info) Description 06/06/2003 Outpatient Historical [facility] Family Medicine [place] [address] [address] Keyona Mccloud, LUCIEN NO ADDRESS ON FILE ACUTE PHARYNGITIS (Primary Dx); ACUTE SINUSITIS NOS Social History Tobacco Use Types Packs/Day Years Used Date Smoking Tobacco: Never Assessed Sex and Gender Information Value Date Recorded Sex Assigned at Not on file Legal 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
--- OUTSIDE RECORDS SUMMARY | 2025-03-13 06:03 | XMS_ITS | Encounter Summary ---
Author Organization [facility] Address [address] [place] [address] Care Team Providers Care Supervisor Machining Name Role Phone Cuba Solano MD Primary Care Provider +1 [phone] Encounter Details Date Type Department Care Team (Latest Contact Info) Description 11/30/2001 Outpatient Historical [facility] Family Medicine [place] [address] [address] Donte Borrego MD NO ADDRESS ON FILE ACUTE CONJUNCTIVITIS NOS (Primary Dx); HERPES ZOSTER NOS Social History Tobacco Use Types Packs/Day Years Used Date Smoking Tobacco: Never Assessed Sex and Gender Information Value Date Recorded Sex Assigned at Not on file Legal Sex Male 2:49 AM PAGE DESIGNER Gender Identity Not on file Sexual Orientation Not on file documented as of this encounter Plan of Treatment Not on file documented as of this encounter Visit Diagnoses Diagnosis Acute conjunctivitis, unspecified- Primary Herpes zoster 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 documented in this encounter Care Teams Supervisor Machining Relationship Specialty Start Date End Date Cuba Solano MD PCP - General 07/11/09 documented as of this encounter
--- OUTSIDE RECORDS SUMMARY | 2025-03-13 06:03 | XMS_ITS | Encounter Summary ---
Author Organization [facility] Address [address] [place] [address] Care Team Providers Care Mural Painter Name Role Phone Cuba Solano MD Primary Care Provider +1 [phone] Encounter Details Date Type Department Care Team (Latest Contact Info) Description 04/04/2003 Outpatient Historical [facility] Family Medicine [place] [id number] [address] Keyona Mccloud, LUCIEN NO ADDRESS ON FILE OTHER MALAISE AND FATIGUE (Primary Dx) Social History Tobacco Use Types Packs/Day Years Used Date Smoking Tobacco: Never Assessed Sex and Gender Information Value Date Recorded Sex Assigned at Not on file Legal Sex Male 2:49 AM HVAC LEAD Gender Identity Not on file Sexual Orientation Not on file documented as of this encounter Plan of Treatment Not on file documented as of this encounter Visit Diagnoses Diagnosis Other malaise and fatigue- Primary documented in this encounter Care Teams Mural Painter Relationship Specialty Start Date End Date Cuba Solano MD PCP - General 07/11/09 documented as of this encounter
--- OUTSIDE RECORDS SUMMARY | 2025-03-13 06:03 | XMS_ITS | Encounter Summary ---
Author Organization [facility] Address [address] [place] [address] Care Team Providers Care Silk Spreader Name Role Phone Cuba Solano MD Primary Care Provider +1 [phone] Encounter Details Date Type Department Care Team (Latest Contact Info) Description 11/14/2001 Outpatient [facility] Family Medicine [place] [address] [address] Keyona Mccloud, LUCIEN NO ADDRESS ON FILE HORDEOLUM EXTERNUM (Primary Dx); ACUTE URI NOS Social History Tobacco Use Types Packs/Day Years Used Date Smoking Tobacco: Never Assessed Sex and Gender Information Value Date Recorded Sex Assigned at Not on file Legal 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
--- OUTSIDE RECORDS SUMMARY | 2025-03-13 06:03 | XMS_ITS | Encounter Summary ---
Author Organization [facility] Address [address] [place] [address] Care Team Providers Care Laboratory Director Name Role Phone Cuba Solano MD Primary Care Provider +1 [phone] Encounter Details Date Type Department Care Team (Latest Contact Info) Description 01/10/2004 Outpatient Historical [facility] Family Medicine Angelica [address] [address] Donte Borrego MD NO ADDRESS ON FILE Pain in limb (Primary Dx); JOINT PAIN-ANKLE Social History Tobacco Use Types Packs/Day Years Used Date Smoking Tobacco: Never Assessed Sex and Gender Information Value Date Recorded Sex Assigned at Not on file Legal Sex Male 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
--- OUTSIDE RECORDS SUMMARY | 2025-03-13 06:03 | XMS_ITS | Encounter Summary ---
Author Organization [facility] Address [address] [place] [address] Care Team Providers Care Crab Fisher Name Role Phone Cuba Solano MD Primary Care Provider +1 [phone] Encounter Details Date Type Department Care Team (Latest Contact Info) Description 05/17/2003 Outpatient Historical [facility] Family Medicine Agnel[place] 198652 [address] [address] Keyona Mccloud, LUCIEN NO ADDRESS ON FILE AFTERCARE FPC USE MEDICATN (Primary Dx) Social History Tobacco Use Types Packs/Day Years Used Date Smoking Tobacco: Never Assessed Sex and Gender Information Value Date Recorded Sex Assigned at Not on file Legal 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
--- OUTSIDE RECORDS SUMMARY | 2025-03-13 06:03 | XMS_ITS | Encounter Summary ---
Author Organization [facility] Address [address] [place] [address] Care Team Providers Care Handle Lathe Operator Name Role Phone Cuba Solano MD Primary Care Provider +1 [phone] Encounter Details Date Type Department Care Team (Latest Contact Info) Description 08/22/2001 Outpatient Historical [facility] Family Medicine [place] [id number] [address] [address] Donte Borrego MD NO ADDRESS ON FILE HYPERTENSION NOS (Primary Dx); TACHYCARDIA NOS Social History Tobacco Use Types Packs/Day Years Used Date Smoking Tobacco: Never Assessed Sex and Gender Information Value Date Recorded Sex Assigned at Not on file Legal Sex Male 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
--- OUTSIDE RECORDS SUMMARY | 2025-03-13 06:03 | XMS_ITS | Encounter Summary ---
Author Organization [facility] Address [address] [place] [address] Care Team Providers Care Invas Tech Name Role Phone Cuba Solano MD Primary Care Provider +1 [phone] Encounter Details Date Type Department Care Team (Latest Contact Info) Description 05/30/2002 Outpatient Historical [facility] Family Medicine Angelica [address] [address] Donte Borrego MD NO ADDRESS ON FILE ANEMIA NOS (Primary Dx) Social History Tobacco Use Types Packs/Day Years Used Date Smoking Tobacco: Never Assessed Sex and Gender Information Value Date Recorded Sex Assigned at Not on file Legal Sex Male 2:49 AM CARBURIZER Gender Identity Not on file Sexual Orientation Not on file documented as of this encounter Plan of Treatment Not on file documented as of this encounter Visit Diagnoses Diagnosis Anemia, unspecified- Primary documented in this encounter Care Teams Invas Tech Relationship Specialty Start Date End Date Cuba Solano MD PCP - General 07/11/09 documented as of this encounter
--- OUTSIDE RECORDS SUMMARY | 2025-03-13 06:03 | XMS_ITS | Encounter Summary ---
Author Organization [facility] Address [address] [place] [address] Care Team Providers Care Automotive Glazier Name Role Phone Cuba Solano MD Primary Care Provider +1 [phone] Encounter Details Date Type Department Care Team (Latest Contact Info) Description 12/04/2003 Outpatient Historical [facility] Family Medicine Angelica [address] [address] Donte Borrego MD NO ADDRESS ON FILE URIN TRACT INFECTION NOS (Primary Dx); ANEMIA NOS; UNSPEC CONSTIPATION Social History Tobacco Use Types Packs/Day Years Used Date Smoking Tobacco: Never Assessed Sex and Gender Information Value Date Recorded Sex Assigned at Not on file Legal 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
--- OUTSIDE RECORDS SUMMARY | 2025-03-13 06:03 | XMS_ITS | Encounter Summary ---
Author Organization [facility] Address [address] [place] [address] Care Team Providers Care Electric Repair Supervisor Name Role Phone Cuba Solano MD Primary Care Provider +1 [phone] Encounter Details Date Type Department Care Team (Latest Contact Info) Description 03/03/2002 Outpatient [facility] Family Medicine Angelica [address] [address] Donte Borrego MD NO ADDRESS ON FILE OTHER MALAISE AND FATIGUE (Primary Dx); B-COMPLEX DEFIC NEC Social History Tobacco Use Types Packs/Day Years Used Date Smoking Tobacco: Never Assessed Sex and Gender Information Value Date Recorded Sex Assigned at Not on file Legal Sex Male 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
--- OUTSIDE RECORDS SUMMARY | 2025-03-13 06:03 | XMS_ITS | Encounter Summary ---
Author Organization [facility] Address [address] [place] [address] Care Team Providers Care Ux Lead Name Role Phone Cuba Solano MD Primary Care Provider +1 [phone] Encounter Details Date Type Department Care Team (Latest Contact Info) Description 05/30/2002 Outpatient Historical [facility] Family Medicine Angelica [address] [address] Donte Borrego MD NO ADDRESS ON FILE ANEMIA NOS (Primary Dx) Social History Tobacco Use Types Packs/Day Years Used Date Smoking Tobacco: Never Assessed Sex and Gender Information Value Date Recorded Sex Assigned at Not on file Legal Sex Male 2: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
--- OUTSIDE RECORDS SUMMARY | 2025-03-13 06:03 | XMS_ITS | Encounter Summary ---
Author Organization 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
--- OUTSIDE RECORDS SUMMARY | 2025-03-13 06:04 | XMS_ITS | Clinical Summary ---
Author Organization [facility] Address [address] [place] [address] Care Team Providers Care Video Producer Name Role Phone Cuba Solano MD Primary Care Provider +1 -[phone] Allergies Active Allergy Reactions Criticality Noted Date [...] mL 30 x 1/2 Misc Syrg by [facility].(Non-Drug; Combo Route) route. 100 Syringe 11 05/30/19 [...] hours. Active Water Liquid 1 Gallon by [facility].(Non-Drug; Combo Route) route daily. 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 Blood specimen (specimen) 10/11/2008 1:40 PM CDT 10/11/2008 1:41 PM CDT us Katie Acosta DO CHEMISTRY ORDERABLES Final Result Performing Organization Address [facility] Phone Number INTERFACE SYSTEM Refer to clinic/hospital department [facility] CLIA# [id number] [address] [place] [address] * (ABNORMAL) MICROALBUMIN, RANDOM URINE (09/27/2008 1:30 PM CDT) MICROALBUMIN, URINE 20(H) <20 MG/L [facility] Blood specimen (specimen) 09/27/2008 1:30 PM CDT 09/27/2008 1:31 PM CDT Katie Acosta DO URINE ORDERABLES Susanne l Result Performing Organization Address [facility] Phone Number INTERFACE SYSTEM Refer to clinic/hospital department [facility] CLIA# [id number] [address] [place] [address] * (ABNORMAL) LIPID PANEL (09/27/2008 1:30 PM CDT) CHOLESTEROL 196 100 - 200 MG/DL [facility] TRIGLYCERIDE 218(H) 0 - 150 MG/DL [facility] HDL 23(L) 40 - 60 MG/DL [facility] LDL CALCULATED 129(H) 58 - 100 MG/DL [facility] Comment: CALCULATED LDL REFERENCE: < 100 Optimal 100 - 129 Near Optimal 130 - 159 Borderline High > 160 High Risk CHOL/HDL RATIO 8.52(H) 3.43 - 4.97 RATIO [facility] Blood specimen (specimen) 09/27/2008 1:30 PM CDT 09/27/2008 1:31 PM CDT Katie Acosta DO CHEMISTRY ORDERABLES Final Result Performing Organization Address [facility] Phone Number INTERFACE SYSTEM Refer to clinic/hospital department [facility] CLIA# [id number] [address] [place] [address] from Last 3 Months or Most Recently Relevant to Health Maintenance Insurance MEDICARE PART A AND B [place]ICAID [place] Advance Directives For more information, please contact: [phone] Documents on File Type Date Recorded Patient Government Guard Expl anation Advance Directive POA 01/20/2013 8:55 AM A dvance Directive POA Care Teams Video Producer Relationship Specialty Start Date End Date Cuba Solano MD PCP - General 07/11/09
--- OUTSIDE RECORDS SUMMARY | 2025-03-13 06:04 | XMS_ITS | Encounter Summary ---
Author Organization [facility] Address [address] [place] [address] Care Team Providers Care Rubbish Collection Supervisor Name Role Phone Cuba Solano MD Primary Care Provider +1 [phone] Encounter Details Date Type Department Care Team (Latest Contact Info) Description 10/06/1999 Outpatient Historical [facility] Family Medicine [place] [address] [address] Donte Borrego MD NO ADDRESS ON FILE Esophageal reflux (Primary Dx); Other and unspecified hyperlipidemia; Unspecified essential hypertension; Nonspecific abnormal results of liver function study Social History Tobacco Use Types Packs/Day Years Used Date Smoking Tobacco: Never Assessed Sex and Gender Information Value Date Recorded Sex Assigned at Not on file 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
--- OUTSIDE RECORDS SUMMARY | 2025-03-13 06:04 | XMS_ITS | Encounter Summary ---
Author Organization [facility] Address [address] [place] [address] Care Team Providers Care Medication Aide Name Role Phone Cuba Solano MD Primary Care Provider +1 [phone] Encounter Details Date Type Department Care Team (Latest Contact Info) Description 07/08/1998 Outpatient Historical [facility] Family Medicine Angelica [address] [address] Donte Borrego MD NO ADDRESS ON FILE Acute infection of pinna (Primary Dx); Acute perichondritis pinna; Malaise and fatigue; Other specified disorders of liver Social History Tobacco Use Types Packs/Day Years Used Date Smoking Tobacco: Never Assessed Sex and Gender Information Value Date Recorded Sex Assigned at Not on file 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
--- OUTSIDE RECORDS SUMMARY | 2025-03-13 06:04 | XMS_ITS | Encounter Summary ---
Author Organization [facility] Address [address] [place] [address] Care Team Providers Care Radiology Asst Name Role Phone Cuba Solano MD Primary Care Provider +1 -[phone] Encounter Details Date Type Department Care Team (Latest Contact Info) Description 10/08/1998 Outpatient Historical [facility] Family Medicine [place] [address] [address] Donte Borrego MD NO ADDRESS ON FILE Esophageal reflux (Primary Dx); Unspecified essential hypertension; Unspecified disorder of liver Social History Tobacco Use Types Packs/Day Years Used Date Smoking Tobacco: Never Assessed Sex and Gender Information Value Date Recorded Sex Assigned at Not on file 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
--- OUTSIDE RECORDS SUMMARY | 2025-03-13 06:04 | XMS_ITS | Encounter Summary ---
Author Organization [facility] Address [address] [place] [address] Care Team Providers Care Dynamic Etching Processor Name Role Phone Cuba Solano MD Primary Care Provider +1 -[phone] Encounter Details Date Type Department Care Team (Latest Contact Info) Description 06/17/1998 Outpatient Historical [facility] Family Medicine [place] 137132 [address] [address] Donte Borrego MD NO ADDRESS ON FILE Other abnormal clinical finding (Primary Dx) Social History Tobacco Use Types Packs/Day Years Used Date Smoking Tobacco: Never Assessed Sex and Gender Information Value Date Recorded Sex Assigned at Not on file 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
--- OUTSIDE RECORDS SUMMARY | 2025-03-13 06:04 | XMS_ITS | Encounter Summary ---
Author Organization [employer] [facility] Address [address] [place] [address] Care Team Providers Care Quality Assurance Analyst Name Role Phone Cuba Solano MD Primary Care Provider +1 -[phone] Encounter Details Date Type Department Care Team (Latest Contact Info) Description 02/19/1998 Outpatient Historical [facility] Moi George MD [address] [place] [address] Benign joe lg bowel (Primary Dx); Unspecified hemorrhoids 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 Social History Tobacco Use Types Packs/Day Years Used Date Smoking Tobacco: Never Assessed Sex and Gender Information Value Date Recorded Sex Assigned at Not on file 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
--- OUTSIDE RECORDS SUMMARY | 2025-03-13 06:04 | XMS_ITS | Encounter Summary ---
Author Organization [facility] Address [address] [place] [address] Care Team Providers Care Automatic Lump Making Machine Tender Name Role Phone Cuba Solano MD Primary Care Provider +1 -[phone] Encounter Details Date Type Department Care Team (Latest Contact Info) Description 03/05/1999 Outpatient Historical [facility] Family Medicine Angelica [address] [address] Donte Borrego MD NO ADDRESS ON FILE Need vaccination-viral disease (Primary Dx); Encounter for long-term (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 of other medications Social History Tobacco Use Types Packs/Day Years Used Date Smoking Tobacco: Never Assessed Sex and Gender Information Value Date Recorded Sex Assigned at Not on file Legal 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
--- OUTSIDE RECORDS SUMMARY | 2025-03-13 06:04 | XMS_ITS | Encounter Summary ---
Author Organization [employer] [facility] Address [address] [place] [address] Care Team Providers Care Journeyman Plumber Name Role Phone Cuba Solano MD Primary Care Provider +1 [phone] Encounter Details Date Type Department Care Team (Latest Contact Info) Description 01/15/1998 Outpatient Historical [facility] Moi George MD [address] [place] [address] Blood in stool (Primary Dx); Nonspecific abnormal results of liver function study Social History Tobacco Use Types Packs/Day Years Used Date Smoking Tobacco: Never Assessed Sex and Gender Information Value Date Recorded Sex Assigned at Not on file 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
--- OUTSIDE RECORDS SUMMARY | 2025-03-13 06:04 | XMS_ITS | Encounter Summary ---
Author Organization [facility] Address [address] [place] [address] Care Team Providers Care Eastern Philosophy Professor Name Role Phone Cuba Solano MD Primary Care Provider +1 -[phone] Encounter Details Date Type Department Care Team (Latest Contact Info) Description 12/03/1998 Outpatient Historical [facility] Family Medicine [place]ica [place] [id number] [address] Donte Borrego MD NO ADDRESS ON FILE Other and unspecified hyperlipidemia (Primary Dx); Acute conjunctivitis, unspecified; Unspecified essential hypertension; Allergy, unspecified not elsewhere classified Social History Tobacco Use Types Packs/Day Years Used Date Smoking Tobacco: Never Assessed Sex and Gender Information Value Date Recorded Sex Assigned at Not on file 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
--- OUTSIDE RECORDS SUMMARY | 2025-03-13 06:04 | XMS_ITS | Encounter Summary ---
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
--- OUTSIDE RECORDS SUMMARY | 2025-03-13 06:04 | XMS_ITS | Encounter Summary ---
Author Organization [facility] Address [address] [place] [address] Care Team Providers Care Certified Income Tax Preparer Name Role Phone Cuba Solano MD Primary Care Provider +1 [phone] Encounter Details Date Type Department Care Team (Latest Contact Info) Description 08/15/1999 Outpatient Historical [facility] [place] [address] [place] [address] Other convulsions (Primary Dx) Social History Tobacco Use Types Packs/Day Years Used Date Smoking Tobacco: Never Assessed Sex and Gender Information Value Date Recorded Sex Assigned at Not on file Legal 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
--- OUTSIDE RECORDS SUMMARY | 2025-03-13 06:04 | XMS_ITS | Encounter Summary ---
Author Organization [facility] Address [address] [place] [address] Care Team Providers Care Supervisor Fur Dressing Name Role Phone Cuba Solano MD Primary Care Provider +1 [phone] Encounter Details Date Type Department Care Team (Latest Contact Info) Description 08/13/1998 Outpatient Historical [facility] [place] [address] [place] [address] Other convulsions (Primary Dx) Social History Tobacco Use Types Packs/Day Years Used Date Smoking Tobacco: Never Assessed Sex and Gender Information Value Date Recorded Sex Assigned at Not on file 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
--- OUTSIDE RECORDS SUMMARY | 2025-03-13 06:04 | XMS_ITS | Encounter Summary ---
Author Organization [facility] Address [address] [place] [address] Care Team Providers Care Shrimp Trawler Name Role Phone Cuba Solano MD Primary Care Provider +1 [phone] Encounter Details Date Type Department Care Team (Latest Contact Info) Description 04/04/1999 Outpatient Historical [facility] Family Medicine Angelica [facility] [address] [address] Zara Royal, DO [address] [place] [address] Edema (Primary Dx); Unspecified essential hypertension Social History Tobacco Use Types Packs/Day Years Used Date Smoking Tobacco: Never Assessed Sex and Gender Information Value Date Recorded Sex Assigned at Not on file 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
--- OUTSIDE RECORDS SUMMARY | 2025-03-13 06:04 | XMS_ITS | Encounter Summary ---
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
--- OUTSIDE RECORDS SUMMARY | 2025-03-13 06:04 | XMS_ITS | Encounter Summary ---
Author Organization [facility] Address [address] [place] [address] Care Team Providers Care Supervisor Metal Hanging Name Role Phone Cuba Solano MD Primary Care Provider +1 [phone] Encounter Details Date Type Department Care Team (Latest Contact Info) Description 01/29/1998 Outpatient Historical [facility] Family Medicine Angelica [address] [address] Donte Borrego MD NO ADDRESS ON FILE Unspecified suppurative otitis media (Primary Dx) Social History Tobacco Use Types Packs/Day Years Used Date Smoking Tobacco: Never Assessed Sex and Gender Information Value Date Recorded Sex Assigned at Not on file Legal Sex Male 2:49 AM TIMBER HAND Gender Identity Not on file Sexual Orientation Not on file documented as of this encounter Plan of Treatment Not on file documented as of this encounter Visit Diagnoses Diagnosis Unspecified suppurative otitis media- Primary documented in this encounter Care Teams Supervisor Metal Hanging Relationship Specialty Start Date End Date Cuba Solano MD PCP - General 07/11/09 documented as of this encounter
--- OUTSIDE RECORDS SUMMARY | 2025-03-13 06:04 | XMS_ITS | Encounter Summary ---
Author Organization [facility] Address [address] [place] [address] Care Team Providers Care Table Games Dual Rate Supervisor Name Role Phone Cuba Solano MD Primary Care Provider +1 [phone] Encounter Details Date Type Department Care Team (Latest Contact Info) Description 02/19/1998 Outpatient Historical [facility] [place] [address] [place] [address] Other convulsions (Primary Dx) Social History Tobacco Use Types Packs/Day Years Used Date Smoking Tobacco: Never Assessed Sex and Gender Information Value Date Recorded Sex Assigned at Not on file Legal Sex Male 2:49 AM 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
--- OUTSIDE RECORDS SUMMARY | 2025-03-13 06:04 | XMS_ITS | Encounter Summary ---
Author Organization [facility] Address [address] [place] [address] Care Team Providers Care Label Coder Name Role Phone Cuba Solano MD Primary Care Provider +1 [phone] Encounter Details Date Type Department Care Team (Late st Contact Info) Description 07/07/1999 Outpatient Historical [facility] Family Medicine Angel[place] [address] [address] Social History Tobacco Use Types Packs/Day Years Used Date Smoking Tobacco: Never Assessed Sex and Gender Information Value Date Recorded Sex Assigned at Not on file Legal Sex Male 2: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 SUPPORT Gender Identity Not on file Sexual Orientation Not on file documented as of this encounter Plan of Treatment Not on file documented as of this encounter Visit Diagnoses Not on filedocumented in this encounter Care Teams Label Coder Relationship Specialty Start Date End Date Cuba Solano MD PCP - General 07/11/09 documented as of this encounter
--- OUTSIDE RECORDS SUMMARY | 2025-03-13 06:04 | XMS_ITS | Encounter Summary ---
Author Organization [facility] Address [address] [place] [address] Care Team Providers Care Midwife Name Role Phone Cuba Solano MD Primary Care Provider +1 [phone] Encounter Details Date Type Department Care Team (Latest Contact Info) Description 07/11/1999 Outpatient Historical [facility] Family Medicine Angelica [address] [address] Donte Borrego MD NO ADDRESS ON FILE Unspecified essential hypertension (Primary Dx); Other convulsions; Allergy, unspecified not elsewhere classified Social History Tobacco Use Types Packs/Day Years Used Date Smoking Tobacco: Never Assessed Sex and Gender Information Value Date Recorded Sex Assigned at Not on file Legal 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
--- OUTSIDE RECORDS SUMMARY | 2025-03-13 06:04 | XMS_ITS | Encounter Summary ---
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
--- OUTSIDE RECORDS SUMMARY | 2025-03-13 06:04 | XMS_ITS | Patient Health Record ---
Author Organization [facility] Address [address] [place] [address] Care Team Providers Care Edger Hand Name Role Phone EDI SAMUELS Unavailable [phone] Kain Marroquin Unavailable [phone] Allergies Allergen (clinical drug ingredient) Drug/Non Drug [...] Description: Age-related physical debility Testing performed at: [address] [place] [address] CLIA ID [id number] Diagnosis Description: Encounter for other preprocedural examination WBC 4.4 4.5-11.0 X10'3 RBC 3.33 4.50-5.90 X10'6 Hgb 9.6 13.5-17.5 G/DL Hct 28.9 41.0-53.0 % MCV 86.8 80.0-100.0 FL MCH 28.8 27.0-31.0 PG MCHC 33.2 31.0-37.0 G/DL Platelet 150 150-400 X10'3 RDW-SD 58.8 35.0-49.0 FL RDW-CV 18.3 12.2-15.6 % MPV 10.4 9.2-12.0 FL Neutro Auto% 68.9 40.0-70.0 % Lymph Auto% 12.0 22.0-44.0 % [place] Auto% 13.3 3.0-7.0 % Eos Auto% 4.6 2.0-4.0 % Baso Auto% 0.5 0.0-1.0 % Imm Gran% .7 .0-.4 % Neutro Abs 3.00 .80-7.70 Absolute Neutrophil Count 3000 Lymph Abs .52 .10-4.10 [place] Abs .58 .20-1.00 Eos Abs .20 .00-.40 Baso Abs .02 .00-.20 Imm Gran Abs .03 .00-.10 NRBC# .00 .00-.20 NRBC% .00 .00-.20 /100 intact WBC's Glucometer WBG Reviewed date:01/03/2025 04:50:43 PM Interpretation: Performing Lab: Notes/Report: Glucometer WBG 128 65-110 MG/DL Asymptomatic~Meter: [id number]~Manager Exchange: [id number] EDI RATLIFF Testing performed at: [address] [place] [address] CLIA ID [id number] Glucometer WBG Reviewed date:01/03/2025 04:50:43 PM Interpretation: Performing Lab: Notes/Report: Glucometer WBG 118 65-110 MG/DL Asymptomatic~Meter: [id number]~Manager Exchange: [id number] MARY BATES Testing performed at: [address] [place] [address] CLIA ID [id number] Reason For Referral No Information Medications Medication [...] tablet Oral ly Once a day Active Latanoprost 0.005 % [...] Semaglutide 3 MG as directed Orally Active Pregabalin 25 MG 1 capsule Orally [...] form er stopped 1993 chews tabacco alcohol forme r stopped 1993 Problems Problem Type SNOMED Code ICD Code Onset Dates Problem Status W/U Status Risk Notes Problem Essential hypertension (09948078) Essential (primary) hypertension (I10) Active confirmed Problem Type II diabetes mellitus without complication (976498901) Type 2 diabetes mellitus without complication, unspecified whether snf insulin use (E11.9) Active confirmed Problem Heart failure (96139908) Chronic congestive heart failure, unspecified heart failure type (I50.9) Active confirmed Problem COPD - Chronic obstructive pulmonary disease (22569146) Chronic obstructive pulmonary disease, unspecified COPD type (J44.9) Active confirmed Problem Postprocedural states (686549076) H/O transurethral destruction of bladder lesion (Z98.890) Active confirmed Problem Urgent desire to urinate (68375938) Urinary urgency (R39.15) Active confirmed Problem Advanced age (44354620) Advanced age (R54) Active confirmed Problem Urinary frequency (161836467) Urinary frequency (R35.0) Active confirmed Vital Signs Heart Rate 116 /min 01/22/2025 Height-cm 182.88 cm 01/22/2025 Blood pressure diastolic 78 mm Hg 01/22/2025 Weight-kg 159.67 kg 01/22/2025 Height 72 in 01/22/2025 Blood pressure systolic 125 mm Hg 01/22/2025 Weight 352 lbs 01/22/2025 BMI 47.73 kg/m2 01/22/2025 Procedures Procedure Date Ordered Date Performed Result Body Sit e Bladder Scan 01/22/2025 N/A Encounters Encounter Location Date Provider Diagnosis [facility] [address] [place] [address] 01/03/2025 EDI SAMUELS [facility], [facility] [address] [place] [address] 11/21/2024 Kain Marroquin Urinary frequency R3 5.0 ; Urinary urgency R39.15 and Weak urinary stream R39.12 [facility] [address] [place] [address] 12/27/2024 Kain Marroquin Pre-op testing Z01.8 18 ; Urinary frequency R35.0 ; Urinary urgency R39.15 and Weak urinary stream R39.12 [facility] [address] [place] [address] 01/22/2025 [facility] Urinary frequency R3 5.0 ; H/O transurethral destruction of bladder lesion Z98.890 ; Urinary urgency R39.15 and Weak urinary stream R39.12 [facility] [address] [place] [address] 11/02/2024 Kain Pearashil [facility] [address] [facility] [address] [place] [address] 11/22/2024 Kain Pevril [facility] [address] [place] [address] 12/25/2024 Kain Pearashil [facility] [address] [place] [address] 12/26/2024 [facility] Pre-op testing Z01.8 18 ; Advanced age R54 ; Pre-procedure lab exam Z01.812 ; Preop cardiovascular exam Z01.810 ; Essential (primary) hypertension I10 ; Type 2 diabetes mellitus without complication, unspecified whether snf insulin use E11.9 ; Chronic congestive heart failure, unspecified heart failure type I50.9 and Chronic obstructive pulmonary disease, unspecified COPD type J44.9 DO NOT USE THIS FACILITY [facility] [employer] [address], [place] [id number] 01/17/2025 [facility] Assessments Encounter Date Diagnosis (ICD Code) Assessment Notes Treatment Notes Treatment Clinical Notes Section Notes 12/26/2024 Pre-op testing (ICD-10 - Z01.818) 01/22/2025 H/O transurethral destruction of bladder lesion [...] aftercare following surgery on the genitourinary system 12/27/2024 Urinary frequency (ICD-10 - R35.0) We [...] in need of presurgical labs, however, the cdl flatbed truck driver is unable to take patient [...] in need of presurgical labs, however, the cdl flatbed truck driver is unable to take patient [...] at our clinic. 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 Continue flomax BID at this time. For now, and at this time, I am unable to assess if he is in retention or not. He is requesting pereira be placed and I am unable to even attempt this here at our clinic. 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 Continue flomax BID at this time. For now, and at this time, I am unable to assess if he is in retention or not. He is requesting pereira be placed and I am unable to even attempt this here at our clinic. I recommended that his [place] facility can try, but if unsuccessful, they [...] care, and counseling patient was 55 minutes. 01/22/2025 Urinary urgency (ICD-10 - R39.15) This [...] following surgery on the genitourinary system 12/26/2024 Advanced age (ICD-10 - R54) 12/27/2024 Urinary urgency (ICD-10 - R39.15) We [...] in need of presurgical labs, however, the cdl flatbed truck driver is unable to take patient [...] questions, and patient satisfied with plan. 12/26/2024 Pre-procedure lab exam (ICD-10 - Z01.812) 01/22/2025 Weak urinary stream (ICD-10 - R39.12) [...] aftercare following surgery on the genitourinary system 12/27/2024 Weak urinary stream (ICD-10 - R39.12) [...] in need of presurgical labs, however, the cdl flatbed truck driver is unable to take patient [...] 2 diabetes mellitus without complication, unspecified whether truck terminal manager insulin use (ICD-10 - E11.9) 12/26/2024 Chronic congestive heart failure, unspecified heart failure type (ICD-10 - I50.9) 12/26/2024 Chronic obstructive pulmonary disease, unspecified COPD type (ICD-10 - J44.9) 01/22/2025 Other # Urinary Retention/Frequen cy Order placed for indwelling Peerira catheter (18 Icelandic) to [facility] inserted at [facility]. Catheter to be changed monthly. Discussed benefits of chronic catheter use for quality of life improvement versus risks of UTI and potential urethral erosion, especially given patient's hypospadias. Will coordinate with [facility] staff regarding catheter management. # Bladder Biopsy Follow-up Pathology results reviewed with patient - benign findings showing inflammation without malignancy. No further follow-up needed for this specific issue. # Fluid Retention/Hepatos plenomegaly Discussed coordination of care with primary team regarding planned paracentesis and liver/spleen biopsy. Suggested possibility of catheter placement during hospitalization if [facility]p unable to place. # Follow-up Return to [...] the bathroom quickly or having accidents. The [facility] staff will place the catheter. They will [...] quality of life are significant. If the [facility] has trouble placing the catheter, we may [...] Basic Metabolic Panel 12/26/2024 Electrocardiogram, 12 Lead Tracing-[id number] 12/26/2024 Chest PA/Lat--[id number] 12/26/2024 Next Appt Details Provider Name:Kain Marroquin, 06/25/2025 02:00:00 PM, [address] [place], [address], Insurance Providers Payer Name Payer Address Payer Phone Subscriber Number Group Number Insured Name Patient Relationship to Insured Coverage Start Date Coverage End Date [place] Medicare [address] [address] [place], [place] [id number] GavinMarciano Self - patient is the insured [place] Medicaid [address] [place], [place] [id number] [phone] [id number] VenusMarciano bolden Self - patient is the insured Medical (General) History Medical History History ICD Code COPD Sleep apnea Hypertension CHF Type 2 Diabetes GERD glaucoma Surgical History Surgery Date(Month/Year) left leg 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
--- OUTSIDE RECORDS SUMMARY | 2025-03-13 06:04 | XMS_ITS | Encounter Summary ---
Author Organization [facility] Address [address] [place] [address] Care Team Providers Care Live In Housekeeper Nanny Name Role Phone Cuba Solano MD Primary Care Provider +1 -[phone] Encounter Details Date Type Department Care Team (Latest Contact Info) Description 09/10/1999 Outpatient Historical [facility] Moi George MD [address] [place] [address] Esophageal reflux (Primary Dx); Diaphragmatic hernia Social History Tobacco Use Types Packs/Day Years Used Date Smoking Tobacco: Never Assessed Sex and Gender Information Value Date Recorded Sex Assigned at Not on file 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
--- OUTSIDE RECORDS SUMMARY | 2025-03-13 06:04 | XMS_ITS | Encounter Summary ---
Author Organization [facility] Address [address] [place] [address] Care Team Providers Care Twister Hand Name Role Phone Cuba Solano MD Primary Care Provider [phone] Encounter Details Date Type Department Care Team (Latest Contact Info) Description 04/10/1999 Outpatient Historical [facility] Family Medicine [place] [id number] [address] Donte Borrego MD NO ADDRESS ON FILE Unspecified essential hypertension (Primary Dx) Social History Tobacco Use Types Packs/Day Years Used Date Smoking Tobacco: Never Assessed Sex and Gender Information Value Date Recorded Sex Assigned at Not on file 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
--- OUTSIDE RECORDS SUMMARY | 2025-03-13 06:04 | XMS_ITS | Encounter Summary ---
Author Organization [facility] Address [address] [place] [address] Care Team Providers Care Firefighter Name Role Phone Cuba Solano MD Primary Care Provider [phone] Encounter Details Date Type Department Care Team (Latest Contact Info) Description 08/13/1998 Outpatient Historical [facility] Moi George MD [address] [place] [address] Abdominal pain, unspecified site (Primary Dx); Blood in stool; Esophageal reflux Social History Tobacco Use Types Packs/Day Years Used Date Smoking Tobacco: Never Assessed Sex and Gender Information Value Date Recorded Sex Assigned at Not on file 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
--- OUTSIDE RECORDS SUMMARY | 2025-03-13 06:04 | XMS_ITS | Encounter Summary ---
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
--- OUTSIDE RECORDS SUMMARY | 2025-03-13 06:04 | XMS_ITS | Encounter Summary ---
Author Organization [facility] Address [address] [place] [address] Care Team Providers Care Powder And Primer Canning Leader Name Role Phone Cuba Solano MD Primary Care Provider [phone] Encounter Details Date Type Department Care Team (Latest Contact Info) Description 04/08/1998 Outpatient Historical [facility] Family Medicine [place] [address] [address] Donte Borrego MD NO ADDRESS ON FILE Generalized osteoarthrosis, unspecified site (Primary Dx); Nonspecific elevation of levels of transaminase or lactic acid dehydrogenase (LDH); Need vaccination-viral disease Social History Tobacco Use Types Packs/Day Years Used Date Smoking Tobacco: Never Assessed Sex and Gender Information Value Date Recorded Sex Assigned at Not on file Legal 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
--- OUTSIDE RECORDS SUMMARY | 2025-03-13 06:04 | XMS_ITS | Encounter Summary ---
Author Organization [facility] Address [address] [place] [address] Care Team Providers Care Labor Service Representative Name Role Phone Cuba Solano MD Primary Care Provider [phone] Encounter Details Date Type Department Care Team (Latest Contact Info) Description 08/15/1999 Outpatient Historical [facility] Moi George MD [address] [place] [address] Nonspecific abnormal results of liver function study (Primary Dx); Esophageal reflux; Unspecified hemorrhoids 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 Social History Tobacco Use Types Packs/Day Years Used Date Smoking Tobacco: Never Assessed Sex and Gender Information Value Date Recorded Sex Assigned at Not on file 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
--- OUTSIDE RECORDS SUMMARY | 2025-03-13 06:04 | XMS_ITS | Encounter Summary ---
Author Organization [facility] Address [address] [place] [address] Care Team Providers Care Bandsaw Operator Name Role Phone Cuba Solano MD Primary Care Provider [phone] Encounter Details Date Type Department Care Team (Latest Contact Info) Description 01/07/2000 Outpatient Historical [facility] Family Medicine [place] [address] [address] Donte Borrego MD NO ADDRESS ON FILE Other abnormal clinical finding (Primary Dx); Encounter for long-term (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 of other medications; Unspecified essential hypertension Social History Tobacco Use Types Packs/Day Years Used Date Smoking Tobacco: Never Assessed Sex and Gender Information Value Date Recorded Sex Assigned at Not on file Legal Sex Male 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
--- OUTSIDE RECORDS SUMMARY | 2025-03-13 06:05 | XMS_ITS | Data Portability ---
Author Organization [facility]ind [facility], [facility] Address [address] [place] [phone] Assessment No assessment recorded. Plan of Treatment [...] By Organization Details Last Modified Time 02/08/2025 [id number] Planning to paracentesis today. Extremely abdominal swelling. Sugars too high, increase aspart to 60 units with meals. Planning to follow up next week. [email or web address] Not available 02/08/2025 14:32:28 02/12/2025 [id number] hospital records reviewed dehydrated from diarrhea; diuretics held no fluid on attempted paracentesis, but lots of fluid in skin of abdomen Not available 02/12/2025 15:44:23 02/26/2025 [id number] Improving volume overload. No ascites on paracentesis. Responding well to bumex and aldactone. GI with concerns for sarcoidosis. They started Linzess for constipation Sugars too high increase tresiba to 90 and aspart to 30. Lab from last week showing hypokalemia. Labs redrawn this morning. Not available 02/27/2025 14:39:12 Reason for Referral None Reported. Results Created Date Observation Date Name Description Value Unit Range Abnormal Flag Note LastModifiedBy Organization Detail LastModifiedTime 02/09/2002/08/2025 imagi ng/di agnos tic resul t No observ ation record ed. [facility] [address] [place], [address], 02/12/2025 11:57:54 Result Notes None recorded. Problems Name Problem SNOMED Code Status Onset Date Resolution Date Notes Provider Name and Address Organization Details Recorded Time Essential hypertens ion 23371503 Active 2007 ESSENTIAL HYPERTENS ION; 8 2:16PM by Karla Joseph LPN, Office Visit; Promoted; acuity set as *; Not Available [facility] 3 03:17:47 Allergic rhinitis 67177997 Active 2007 ALLERGIC RHINITIS; 8 2:16PM by Karla Joseph LPN, Office Visit; Promoted; acuity set as *; Not Available [facility] 3 03:17:47 Persisten t insomnia 792702670 Active 2007 PERSISTEN T INSOMNIA; 8 2:16PM by Karla Joseph LPN, Office Visit; Promoted; acuity set as *; Not Available [facility] 3 03:17:52 Fracture of ankle 63568391 Active 2007 Ankle Fracture; 8 2:16PM by Karla Joseph LPN, Office Visit; Promoted; acuity set as *; Not Available [facility] 3 03:17:53 Peptic ulcer 31407830 Active 2007 PEPTIC ULCER; 8 2:16PM by Karla Joseph LPN, Office Visit; Promoted; acuity set as *; Not Available [facility] 3 03:17:53 Type 1 diabetes mellitus 77338217 Active 2007 DIABETES MELLITUS TYPE I; 8 2:16PM by Karla Joseph LPN, Office Visit; Promoted; acuity set as *; Not Available [facility] 3 03:17:58 Constipat ion 40907087 Active 2007 CONSTIPAT ION; 8 2:16PM by Karla Joseph LPN, Office Visit; Promoted; acuity set as *; Not Available [facility] 3 03:17:58 Amputated above knee 917854156 Active 2007 ABOVE KNEE AMPUTATIO N STATUS; 8 2:16PM by Karla Joseph LPN, Office Visit; Promoted; acuity set as *; Not Available [facility] 3 03:17:59 History of depressio n 747268321 Active 2007 DEPRESSIO N, NOS; 8 2:16PM by Karla Joseph LPN, Office Visit; Promoted; acuity set as *; Not Available [facility] 3 03:18:00 Hyperglyc emia due to type 2 diabetes mellitus 66866532488 9109 Active 2023 NATHANAEL tavarez, [facility] 4 13:09:52 Chronic back pain greater than three months duration 10857478609 2 Active 2023 [facility] 15:23:19 Blepharit is of right eyelid 47531889242 9103 Active 2024 NATHANAEL VICTORIA [facility] 5 15:11:18 Congestiv e heart failure 98751477 Active 2024 NATHANAEL VICTORIA [facility] 5 16:21:48 Acute right otitis media 246120841 Active 2024 [facility] 5 16:28:04 Pain of right shoulder joint 20459330306 380577 Active 2024 NATHANAEL VICTORIA [facility] 5 17:59:42 Hepatospl enomegaly 24783209 Active 2024 [facility] 5 14:35:12 Thrombocy topenic disorder 858993390 Active 2024 [facility] 5 14:35:13 Bilateral lower limb edema 073858114 Active 2024 [facility] 5 15:35:25 Problem Notes None recorded. Medical Equipment None Reported. Allergies Allergen ID Allergen Name Allergen Category Reaction Reaction Severity Criticality Documentation Date Start Date Code Code System Note Provider Name and Address Organization Details Recorded Time 77085 Product containin g penicilli n (product) medicatio n Not available Not available Not available 11/28/2022 93136 8001 SNOMED Comme nt: Recor ded 09/01 2:16P M by Briseida Joseph LPN, Offic e Visit ; Domingo wade ce: *; ; Not Available [facility] 3 02:25:17 Medications Name Sig Start Date [...] Address Organization Details Last Updated DateTime 5 593791. 58 g 74 /min 20 /min 98 [degF] 96 % 96 % 143/72 mm[Hg] [facility] 5 14:30:11 Date Recorded Body weight Heart rate Respiratory rate Body temperature Oxygen saturation Oxygen saturation in Arterial blood by Pulse oximetry Systolic And Diastolic Provider Name and Address Organization Details Last Updated DateTime 5 992873. 69 g 112 /min 16 /min 98.2 [degF] 97 % 97 % 160/85 mm[Hg] [facility] 5 14:34:17 Date Recorded Body weight Oxygen saturation Oxygen saturation in Arterial blood by Pulse oximetry Inhaled oxygen flow rate Heart rate Respiratory rate Body temperature Systolic And Diastolic Provider Name and Address Organization Details Last Updated DateTime 5 787651. 02 g 98 % 98 % 3 L/min 107 /min 18 /min 97.5 [degF] 129/53 mm[Hg] MARLON GRAJEDA [facility] 5 15:33:51 Date Recorded Body weight Heart rate Respiratory rate Body temperature Oxygen saturation Oxygen saturation in Arterial blood by Pulse oximetry Systolic And Diastolic Provider Name and Address Organization Details Last Updated DateTime 5 382287. 93 g 107 /min 18 /min 97.5 [degF] 95 % 95 % 129/53 mm[Hg] [facility] 5 16:01:18 Social History None recorded. Functional Status None recorded. Mental Status None recorded. Family History Nothing Reported. Medical History No medical history recorded. Immunizations Vaccine Type Date Status Note Provider Nam e and Address Organization Details Recorded Time influenza, unspecified formulation 8 completed Not Available [facility] 03/01/2025 14:23:01 Influenza, split virus, trivalent, preservative 0 completed Not Available [facility] 03/01/2025 14:23:01 COVID-19, mRNA, LNP-S, PF, 100 mcg/0.5mL dose or 50 mcg/0.25mL dose 1 completed Not Available [facility] 03/01/2025 14:23:01 COVID-19, mRNA, LNP-S, PF, 100 mcg/0.5mL dose or 50 mcg/0.25mL dose 1 completed Not Available [facility] 03/01/2025 14:23:01 Influenza, split virus, quadrivalent, PF 1 completed Not Available [facility] 03/01/2025 14:23:01 COVID-19, mRNA, LNP-S, PF, 100 mcg/0.5mL dose or 50 mcg/0.25mL dose 1 completed Not Available [facility] 03/01/2025 14:23:01 Influenza, split virus, quadrivalent, PF 2 completed Not Available [facility] 03/01/2025 14:23:01 Influenza, split virus, quadrivalent, PF 3 completed Not Available [facility] 03/01/2025 14:23:01 Influenza, split virus, trivalent, preservative 4 completed Not Available [facility] 03/01/2025 14:23:01 COVID-19, mRNA, LNP-S, PF, 50 mcg/0.5 mL 5 completed Not Available [facility] 03/01/2025 14:23:01 Past Encounters Encounter ID Performer Location Encounter Start Date Encounter Closed Date Diagnosis/Indication Diagnosis SNOMED-CT Code Diagnosis ICD10 Code Diagnosis IMO Codes Diagnosis Note [id number] Chris Parker DO [facility] ([facility]) [address] [place] [id number] 02/29/2024 08:37:45 02/29/2024 15:46:46 Chronic obstructive pulmonary disease 05457314 J44.9 Amputated above knee 299 644130 Z89.619 left Essential hypertension 53904664 I10 Hyperglyce jaleel due to type 2 diabetes mellitus 3144768860 19246 E11.65 [id number] Chris Parker DO [facility] ([facility]) [address] [place] [id number] 03/14/2024 13:21:57 03/14/2024 16:53:47 Candidiasis of skin 23596911 B37.2 [id number] Chris Parker DO [facility] ([facility]) [address] [place], [place] [address] 04/11/2024 08:16:14 04/17/2024 11:22:39 History of depression 322597056 Z86.59 Amputated above knee 299 787445 Z89.619 left Hyperglyce jaleel due to type 2 diabetes mellitus 8537187176 64166 E11.65 [id number] Chris Parker DO [facility] ([facility]) [address] [place] [address] 5 05/08/2024 14:42:28 05/09/2024 14:13:27 History of depression 788930001 Z86.59 Hyperglyce jaleel due to type 2 diabetes mellitus 9633829761 05562 E11.65 Amputated above knee 299 560117 Z89.619 left [id number] Chris Parker DO [facility] ([facility]) [address] [place] [address] 5 05/23/2024 13:28:32 05/25/2024 13:20:49 Hyperglycemia due to type 2 diabetes mellitus 0927981351 60484 E11.65 Blephariti s of right eyelid 7198409532 52079 H01.364 [id number] Chris Parker [facility] ([facility]) [address] [place] [address] 5 06/05/2024 14:01:27 06/07/2024 12:06:41 History of depression 350965480 Z86.59 Congestive heart failure 22521817 I50.9 Amputated above knee 299 574962 Z89.619 left Essential hypertension 72394340 I10 Hyperglyce jaleel due to type 2 diabetes mellitus 5667849764 93227 E11.65 Persistent insomnia 1919 15780 G47.00 [id number] Chris Parker [facility] ([facility]) [address] [place] [address] 5 06/15/2024 14:42:28 06/22/2024 06:57:36 Persistent insomnia 656517812 G47.00 Hyperglyce jaleel due to type 2 diabetes mellitus 7650150134 14110 E11.65 Congestive heart failure 34732938 I50.9 Visual disturbance 95489 001 H53.9 Viral syndrome 774555191 B34.9 [id number] Chris Parker DO [facility] ([facility]) [address] [place] [address] 5 06/19/2024 14:32:25 06/27/2024 07:52:53 Congestive heart failure 29979161 I50.9 [id number] Crhis Parker DO [facility] ([facility]) [address] [place] [address] 5 07/17/2024 14:49:03 07/19/2024 06:58:14 History of depression 399255334 Z86.59 Persistent insomnia 1919 13684 G47.00 Impacted c erumen in right ear 9559586188 472519 H61.21 Middle ear effusion 1004 964094 H74.8X9 left [id number] Chris Parker DO [facility] ([facility]) [address] [place] [address] 5 2024 13:12:54 07/25/2024 07:05:48 Acute right otitis media 636700091 H66.91 Dysuria 62633323 R30.0 [id number] Chris Parker [facility] ([facility]) [address] [place] [address] 5 08/14/2024 13:21:30 08/23/2024 07:50:54 Hyperglycemia due to type 2 diabetes mellitus 1502733580 40265 E11.65 Congestive heart failure 56290354 I50.9 Amputated above knee 299 198401 Z89.619 left [id number] Chris Parker DO [facility] ([facility]) [address] [place] [address] 5 09/04/2024 08:10:50 09/10/2024 09:07:59 Chronic pain of right upper limb 6359660854 1098219 M25.511 G89.29 265957 [id number] Chris Parker [facility] ([facility]) [address] [place], [place] [address] 10/09/2024 10:23:33 10/17/2024 15:32:18 History of depression 769470478 Z86.59 Hyperglyce jaleel due to type 2 diabetes mellitus 4044631494 E11.65 Congestive heart failure 23180669 I50.9 Chronic ba ck pain greater than three months duration 8256918023 02 G89.29 Thrombocyt openic disorder 742213192 D69.6 74116 [id number] Chris Parker DO [facility] ([facility]) [address] [place] [id number] 10/30/2024 14:46:31 11/01/2024 11:47:18 History of depression 745681183 Z86.59 Hyperglyce jaleel due to type 2 diabetes mellitus 9134749985 E11.65 Congestive heart failure 79506138 I50.9 [id number] Chris Parker DO [facility] ([facility]) [address] [place] [id number] 11/02/2024 08:05:32 11/07/2024 08:24:49 Pain of right shoulder joint 2706387123 3113093 M25.511 538774 [id number] Chris Parker DO [facility] ([facility]) [address] [place] [id number] 5 11/23/2024 11:52:48 12/06/2024 08:38:17 Pain of right shoulder joint 3438553488 2336439 M25.511 652210 Supraspinatus tear 85874 6004 M75.101 10221263 Rupture of infraspinatus tendon 118926830 S46.811A 49750705 Rupture williamson bscapularis tendon 851278361 S46.811A 8307698472 Hyperglyce jaleel due to type 2 diabetes mellitus 0197749409 E11.65 Z79.4 59846813 [id number] Chris Parker DO [facility] ([facility]) [address] [place] [id number] 5 11/27/2024 14:15:45 12/06/2024 09:32:58 Thrombocytopenic disorder 243248836 D69.6 49772 Hepatosplenomegaly 42962 000 R16.2 08139 [id number] Chris Parker DO [facility] ([facility]) [address] [place] [id number] 12/14/2024 12:31:55 12/27/2024 18:42:02 [id number] Chris Parker DO [facility] ([facility]) [address] [place] [address] 01/11/2025 12:12:21 01/16/2025 10:56:12 Hyperglycemia due to type 2 diabetes mellitus 2186808561 14642 E11.65 Z79.4 [id number] Chris Parker DO [facility] ([facility]) [address] [place] [id number] 01/15/2025 12:18:30 01/17/2025 08:49:31 Type 1 diabetes mellitus 73273531 E10.9 Hepatosplenomegaly 54924 000 R16.2 16087 Pneumonia 350576103 J18. 9 9264754983 [id number] Chris Parker DO [facility] ([facility]) [address] [place] [id number] 01/18/2025 09:41:48 01/23/2025 16:25:08 [id number] Chris Parker DO [facility] ([facility]) [address] [place] [id number] 5 01/22/2025 15:25:32 01/24/2025 09:26:09 Congestive heart failure 21272205 I50.9 Type 1 brad betes mellitus 52166276 E10.9 Hepatosplenomegaly 27320 000 R16.2 61744 [id number] Chris Parker DO [facility] ([facility]) [address] [place] [id number] 5 02/05/2025 14:15:56 02/06/2025 16:50:40 Hepatosplenomegaly 57185709 R16.2 41975 Ascites 205819232 R18.8 561698 Pancytopenia 310046647 D 61.818 96680 [id number] Chris Parker DO [facility] ([facility]) [address] [place] [address] 5 02/08/2025 13:43:34 02/13/2025 12:53:21 Hyperglycemia due to type 2 diabetes mellitus 8673920302 24402 E11.65 Z79.4 Hepatosplenomegaly 15546 000 R16.2 65570 [id number] Chris Parker DO [facility] ([facility]) [address] [place] [address] 02/12/2025 13:42:12 02/14/2025 09:05:11 Post-discharge follow-up 195648937 Z09 846786 Essential hypertension 83276654 I10 Congestive heart failure 18592423 I50.9 [id number] Chris Parker DO [facility] ([facility]) [address] [place] [address] 02/26/2025 14:48:04 02/28/2025 08:09:20 Type 1 diabetes mellitus 56862409 E10.9 Congestive heart failure 98416620 I50.9 Essential hypertension 47744500 I10 Cirrhosis of liver 007 K74.69 1205270 Chronic constipation 236 158347 K59.09 832079 Health Concerns Section Related Observation LastModified by Organization Detai ls LastModified Time None Recorded Concern Status LastModified by Organization Details LastModified Time None Recorded Advance Directives Directive None Recorded Payers Insurance Date Sequence Insurance Name Policy Number Policy Pate Covered Member ID Pate Member ID Guarantor Name 02/29/2024 1 *SELF PAY* Ti lizettcarmen Recinos Gavin 03/01/2025 [place] - [facility] (MEDICARE) Marciano Morater [id number] Marciano Morater 03/01/2025 [place] [facility] Marciano Recinos Gavin [id number] Marciano L Gavin 03/01/2025 2 [place] Marciano L Gavin [id number] Marciano L Rutherford 03/01/2025 1 [place] S Marciano Recinos Gavin [id number] Marciano Recinos Rutherford Notes Date Note Type Note Provider Name and Address Organization Details Recorded Time 5 text/html COPDReported by PatientHPI:For associated symptoms, patient reportsobesity. For onset/timing, patient reportsmultiple times per day. For duration, patient reportshas noted for years.ROS as noted in the HPI Planning to go for paracentesis. Chris Parker DO [address] [place] [address], [phone], [facility], LYoni 02/11/2025 17:17:58 5 text/html COPDReported by PatientHPI:For associated symptoms, patient reportsobesity. For onset/timing, patient reportsmultiple times per day. For duration, patient reportshas noted for years.ROS as noted in the HPI stayed in hospital over the weekend Chris Parker DO [address] [place] [address], [phone], [facility], LRasheedLRasheedC. 02/12/2025 15:44:36 5 text/html EdemaReported by PatientHPIFor quality, patient reportspainfulbut reportslegs swell equallyandimproves overnight. For location, patient reportsble. For severity, patient reportsmoderate. For duration, patient reportsconstant. NEW ADMIT Not Available Not Available Not Available 5 text/html COPDReported by PatientHPI:For associated symptoms, patient reportsobesity. For onset/timing, patient reportsmultiple times per day. For duration, patient reportshas noted for years.ROS as noted in the HPI staff wants to discuss weight and sugars. Chris Parker DO [address] [place] [address], [phone], [facility], JimLCorbin 02/27/2025 14:39:25
[2025-03-13 06:12] LABS: Lactic Sepsis W/Reflex 2.4 mmol/L (0.5-2.2)
[2025-03-13 06:13] LABS: Hematocrit 30.2 % (37-53); Hemoglobin 9.60 g/dL (11.27-16.99); Mean Corpuscular HGB Conc 31.8 g/dL (30-55); Mean Corpuscular Hemoglobin 25.5 pg (27-33); Mean Corpuscular Volume 80.3 fl (82-101); Nucleated Red Blood Cells % 0 %; Platelet Count 209 10^3/cmm (157-399); Red Blood Count 3.76 10^6/uL (3.85-5.65); White Blood Count 6.79 10^3/uL (3.29-11.43)
[2025-03-13 06:18] LABS: Ketone (Acetest) Serum Negative (Negative); Troponin(5th) Baseline 91 ng/L (0-15)
[2025-03-13 06:19] LABS: Alanine Aminotransferase 88 U/L (0-41); Albumin Level 3.7 g/dL (3.5-5.2); Alkaline Phosphatase 126 U/L (40-130); Anion Gap 20.4 (5-19); Aspartate Amino Transferase 140 U/L (0-40); Blood Urea Nitrogen 58 mg/dL (8-23); Calcium 9.8 mg/dL (8.5-10.5); Carbon Dioxide 22 mmol/L (22-29); Chloride 102 mmol/L (98-107); Globulin 3.7 g/dL (1.3-4.6); Glucose 329 mg/dL (65-115); Lipase 282 U/L (13-60); Magnesium 2.1 mg/dL (1.7-2.3); Osmolality Calculated 319 mOsm/kg (285-295); Potassium 4.4 mmol/L (3.5-5.1); Sodium 140 mmol/L (136-145); Total Protein 7.4 g/dL (6.6-8.7)
[2025-03-13 06:21] LABS: Glucose Urine UA Negative (Normal); Nitrate Urine Positive (Negative); Specific Gravity, Urine 1.011 (1.005-1.030)
[2025-03-13 06:26] LABS: Add Urine Microscopic? YES
--- NOTE | 2025-03-13 06:30 | PC.NURSE ---
Looked at patient's skin with physician, pt has a pressure sore on the inside of his right ankle, on his left hip and on the underside of his scrotum.
[2025-03-13 06:46] LABS: UA Slide Review UA Slide Review Perf
[2025-03-13 06:47] LABS: Respiratory Syncytial Virus Ce NEGATIVE (Negative); SARS-CoV-2 PCR NEGATIVE (Negative)
--- NOTE | 2025-03-13 07:05 | CT_ITS ---
WS: [id number] CT ABDOMEN AND PELVIS NONCONTRAST HISTORY: Abdominal pain, confusion. TECHNIQUE: Imaging performed through the abdomen and pelvis. Coronal and sagittal reformats are submitted. All CT scans at [facility] use at least one of these dose optimization techniques: automated exposure control; mA and/or kV adjustment per patient size (includes targeted exams where dose is matched to clinical indication); or iterative reconstruction. DLP: 1835.73 mGy.cm COMPARISON: 02/09/2025 Study is compromised by patient positioning and physical limitations. Lower thorax: Breathing motion artifact at the lung bases. Dependent changes at the lung bases. Heart is moderately enlarged. Liver: As visualized unremarkable. Gallbladder: Well-distended. Increased density in the dependent portion of the gallbladder consistent with small stones. No intrahepatic duct dilatation. No adjacent inflammation. Pancreas: Negative as visualized. Spleen: Splenomegaly, 17 cm in length. Adrenal glands: Normal. No mass. Right kidney: Normal size kidney with no mass or hydronephrosis. Left kidney: Normal size. Reidentified is exophytic mass from the lower pole measuring 1.8 cm. No change since the most recent studies. Slight increase in size since 04/10/2022. Aorta: Moderate to severe atherosclerosis abdominal aorta. No aneurysm. Atherosclerosis continues into the common iliac arteries. No free fluid, intraperitoneal air or significant lymphadenopathy. GI tract: No obstruction. No colitis. Abdominal wall: Negative. No hernia. Pelvis: The entire pelvis is not been included in the imaging submitted. This is due to position of the patient within the gantry and modhi-yp-rmrg. Osseous structures: Severe degenerative changes at the hips. No acute fractures are identified. CT/CT abdomen pelvis con 05635 IMPRESSION: 1. No acute abdominal or pelvic abnormalities identified. 2. Overall the entire study is limited by patient's physical and clinical cond ition. 3. No ascites or significant soft tissue anasarca. 4. Splenomegaly. 5. Cholelithiasis without evidence for acute cholecystitis. 6. Cardiomegaly. 7. No renal obstruction.
[2025-03-13 07:11] LABS: NT Pro B Type Natriuretic Pept 369 pg/mL (0-125)
[2025-03-13 07:42] LABS: Troponin 5 2HR 86.17 ng/L (0-15)
[2025-03-13 07:46] LABS: Troponin 5 2HR Delta -4.83 ABS# (0-10)
[2025-03-13] MEDS: cefepime 1,000 mg SDV 1000 MG IVP (07:46)
[2025-03-13] MEDS: linezolid premix 600 MG/300 ML PREMIX 300 MG IV ×2 (07:47→18:40)
--- NOTE | 2025-03-13 08:43 | ECG_ITS ---
[facility] Test Date: 2025-03-13 Pat Name: Marciano Alonso Department: Room: ED Gender: Male Ax Survey Worker: : 1965 Requested By: Trell Recinos Order Number: [id number] Clarence MD: Parvez De Anda M.D. Measurements Intervals [place] Rate: 109 P: -87 WV: 141 QRS: -73 QRSD: 162 T: 102 QT: 417 QTc: 563 Interpretive Statements POSSIBLE SINUS TACHYCARDIA VERSUS ECTOPIC ATRIAL TACHYCARDIA LEFT AXIS DEVIATION [QRS AXIS < -30] RIGHT BUNDLE BRANCH BLOCK [120+ ms QRS DURATION, UPRIGHT V1, 40+ ms S IN I/aVL/V4/V5/V6] POSSIBLE ANTERIOR MYOCARDIAL INFARCTION , PROBABLY OLD [30 ms Q WAVE IN V3/V4, OR R < 0.2 mV IN V4] Compared to ECG 03/13/2025 05:59:50 NO SIGNIFICANT CHANGE Electronically Signed On 03-18-2025 18:00:34 RIVET TESTER by Parvez De Anda M.D. [email or web address]
--- NOTE | 2025-03-13 09:37 | PC.NURSE ---
PER VERBAL ORDER NISHA BARRIGA TO HOLD 50ML NS INFUSION. ORDER NON-ADMIN IN JUL.
--- NOTE | 2025-03-13 09:47 | PC.PHAR ---
Pt is a resident at [facility]
[2025-03-13] MEDS: pantoprazole 40 mg SDV IVP (10:44)
--- NOTE | 2025-03-13 11:45 | ECG_ITS ---
[facility] 2025[facility]13 Pat Name: Marciano Alonso Department: Room: 108 Gender: Male Kier Operator: : 1965 Requested By: Trell Recinos Order Number: [id number] Clarence MD: Parvez De Anda M.D. Measurements Intervals [place] Rate: 112 P: -73 WY: 86 QRS: -68 QRSD: 157 T: 96 QT: 309 QTc: 422 Interpretive Statements ECTOPIC ATRIAL TACHYCARDIA LEFT AXIS DEVIATION [QRS AXIS < -30] RIGHT BUNDLE BRANCH BLOCK [120+ ms QRS DURATION, UPRIGHT V1, 40+ ms S IN I/aVL/V4/V5/V6] Compared to ECG 03/13/2025 08:43:07 NO SIGNIFICANT CHANGE Electronically Signed On 03-18-2025 17:48:04 PERSONAL SERVICE WORKERS by Parvez De Anda M.D. [email or web address]
[2025-03-13 11:59] LABS: Troponin 5 6HR 87.02 ng/L (0-15)
--- NOTE | 2025-03-13 12:00 | PC.NURSE ---
received pt from ER Pt is alert and orientedx4, room air. Pt has redness/skin ulcers on lower abdominal folds and groin areas, redness on perineal area, has stage1 pressure ulcer on right medial ankle foot, optifoam dressing intact. pt has a chronic peerira catheter in place that was placed on 02/11 during his hospitalization here. Family at bedside. Sister who is his dpoa mentioned that he saw a urologist in [place] but could not give me any more information about their suggestion, called [facility] and they could not provide me any about that and stated, you should be able to see that in your facility. Sister told me that pt should have a sleep study coz he needs a new BIPAP machine.? call light provided to pt. pt reports of chronic pain and trouble with his bowels.PRN hydrocodone provided.
[2025-03-13 12:06] LABS: Troponin 5 6HR Delta -3.98 ng/L (0-12)
[2025-03-13] MEDS: HYDROcodone-acetaminophen 5-325 mg Tablet 1 TAB PO (12:11)
[2025-03-13 12:34] LABS: Reflex Lactate Order REFLEX LACTIC ORDERD
[2025-03-13 12:38] LABS: Lactic Acid level (Lactate) 1.8 mmol/L (0.5-2.2)
--- NOTE | 2025-03-13 13:25 | PM.HP ---
Providers/Chief Complaint Admitting Physician: Jorge Solis MD Primary Care Provider: Chris Parker DO Chief Complaint: AMS History of Present Illness Marciano Alonso is a 59 year old male with prior medical history of SCHUYLER, JESSICA, CP, CHF, HTN, L KA, DM, joint pain, atrial fibrillation/flutter, dermatitis, pancytopenia, seizures, HLD, COPD, GERD, ulcers, former nicotine dependence, and sepsis presenting with complaints of altered mental status. Patient resides at [facility]. Today, he woke from sleep with increased shortness of breath. Staff noted him to be altered in mentation with hallucinations of people and things that were not there. EMS was called and he was transported to [facility] via ambulance. Family at bedside. Sister reports that he had recent infection and completed a course of antibiotics. They were concerned for infection reoccurrence. Of note, patient is on home O2 and BiPAP. Last week his BiPAP failed and he was set up for an appointment within the [facility] system for 03/21/2025 for a new sleep study and device. In the interim, he just has his regular oxygen. Patient does not smoke tobacco or drink alcohol any longer. Will admit to the Hospitalist Service for further evaluation and treatment Review of Systems Const: Reports: malaise; Denies: fever(s) or chills Card: Denies: chest pain Resp: Denies: dyspnea GI: Denies: abdominal pain : Denies: dysuria, urinary frequency or urinary urgency Musc: Denies: neck pain or back pain Skin/Breast: Denies: rash Neuro: Reports: confusion Medications/Allergies Home Medications ?Medication ?Instructions ?Recorded ?Confirmed ?Last Taken ?Type allopurinol 300 mg tablet 300 mg PO DAILY 05/08/19 03/13/25 03/12/25 History cholecalciferol (vitamin D3) 25 1,000 unit PO DAILY 05/08/19 03/13/25 03/12/25 History mcg (1,000 unit) capsule montelukast 10 mg tablet 10 mg PO BEDTIME 05/08/19 03/13/25 03/12/25 History fluticasone propionate 50 1 spray intranasal BID #15.8 mL 07/18/19 03/13/25 03/12/25 Rx mcg/actuation nasal spray,suspension hydrocodone 5 mg-acetaminophen 325 1 tab PO TID PRN pain 30 days #90 02/05/21 03/13/25 03/12/25 Rx mg tablet tabs metoclopramide HCl 10 mg tablet 10 mg PO QID Indigestion 04/16/22 03/13/25 03/12/25 History (Reglan) multivit-minerals no.60-ferrous 1 tab PO DAILY 10/16/22 03/13/25 03/12/25 History fumarate-folic acid 27 mg-1 mg tablet (Niva-Plus) metoprolol tartrate 100 mg tablet 100 mg PO BID 12/28/23 03/13/25 03/12/25 History pregabalin 50 mg capsule 50 mg PO TID #90 caps 03/22/24 03/13/25 03/12/25 Rx esomeprazole magnesium 40 mg 40 mg PO BID 04/24/24 03/13/25 03/12/25 History capsule,delayed release lidocaine 5 % topical patch 1 patch topical BID 04/24/24 03/13/25 03/12/25 History magnesium hydroxide 400 mg/5 mL 30 ml PO .Q72H PRN Constipation 04/24/24 03/13/25 03/11/25 History oral suspension (Milk of Magnesia) sodium phosphates 19 gram-7 118 ml AK DAILY PRN Constipation 04/24/24 03/13/25 Unknown History gram/118 mL enema (Fleet Enema) tamsulosin 0.4 mg capsule (Flomax) 0.4 mg PO BID 04/24/24 03/13/25 03/12/25 History acetaminophen 500 mg capsule 500 mg PO Q6H PRN pain or fever 09/08/24 03/13/25 03/12/25 History budesonide 160 mcg-glycopyr 9 2 inh inhalation BID 09/08/24 03/13/25 03/12/25 History mcg-formot 4.8 mcg/actuation HFA inhaler (Breztri Aerosphere) albuterol sulfate 2.5 mg/3 mL 2.5 mg inhalation Q6H PRN Dyspnea 02/05/25 03/13/25 02/13/25 History (0.083 %) solution for nebulization atorvastatin 20 mg tablet 20 mg PO DAILY 02/05/25 03/13/25 03/12/25 History brimonidine 0.2 % eye drops 1 drp ophthalmic (eye) BID 02/05/25 03/13/25 03/12/25 History brinzolamide 1 % eye 1 drp ophthalmic (eye) BID 02/05/25 03/13/25 03/12/25 History drops,suspension diclofenac sodium 1 % topical gel 2 g topical TID PRN Pain 02/05/25 03/13/25 02/08/25 History latanoprost 0.005 % eye drops 1 drp ophthalmic (eye) BEDTIME 02/05/25 03/13/25 03/12/25 History white petrolatum-mineral oil 94 1 applic ophthalmic (eye) BEDTIME 02/05/25 03/13/25 03/12/25 History %-3 % eye ointment (Systane Nighttime) triamcinolone acetonide 0.1 % 1 applic topical BID PRN skin 02/09/25 03/13/25 Unknown History topical cream irritation on ears diltiazem HCl 180 mg 180 mg PO DAILY #30 caps 02/11/25 03/13/25 03/12/25 Rx capsule,extended release 24 hr (Cardizem CD) amiodarone 400 mg tablet 400 mg PO QAM 02/14/25 03/13/25 03/12/25 History bisacodyl 5 mg tablet 10 mg PO DAILY PRN Constipation 02/14/25 03/13/25 03/11/25 History miscellaneous medical supply 02/14/25 03/13/25 Unknown History (Ocusoft Eyelid Cleansing Pads) semaglutide 1 mg/dose (4 mg/3 mL) 1 mg SUBCUT Q7D 02/14/25 03/13/25 03/12/25 History subcutaneous pen injector (Ozempic) bumetanide 1 mg tablet 1 mg PO TID 03/13/25 03/13/25 03/12/25 History bumetanide 2 mg tablet 2 mg PO TID 03/13/25 03/13/25 03/12/25 History dextran 70-hypromellose eye drops 1 drp ophthalmic (eye) Q2H PRN 03/13/25 03/13/25 Unknown History in a dropperette (Artificial Tears irritation (PF) drops in a dropperette) insulin aspart U-100 100 unit/mL 30 unit SUBCUT TID 03/13/25 03/13/25 03/12/25 History (3 mL) subcutaneous pen insulin degludec 100 unit/mL (3 90 unit SUBCUT BEDTIME 03/13/25 03/13/25 03/12/25 History mL) subcutaneous pen (Tresiba FlexTouch U-100 insulin) linaclotide 72 mcg capsule 72 mcg PO DAILY 03/13/25 03/13/25 03/12/25 History (Linzess) menthol 0.8 % topical powder (Gold See Rx Instructions .Route .COMPLEX 03/13/25 03/13/25 03/12/25 History Castillo Medicated Body) ondansetron 8 mg disintegrating 8 mg PO Q6H PRN Nausea And Vomiting 03/13/25 03/13/25 Unknown History tablet potassium chloride 20 mEq 20 meq PO DAILY 03/13/25 03/13/25 03/12/25 History tablet,extended release(part/cryst) spironolactone 50 mg tablet 50 mg PO DAILY 03/13/25 03/13/25 03/12/25 History Allergies Allergy/AdvReac Type Severity Reaction Status Date / Time Penicillins Allergy ALGY-Hives Verified 03/13/25 05:48 Sulfa (Sulfonamide Allergy ALGY-Hives Verified 03/13/25 05:48 Antibiotics) PFSH Acute PFSH: Medical History (Reviewed 03/13/25 @ 13:36 by Anita Antonio, PSYCHIATRIC TECHNICIAN ASSISTANT, BEHAVIORAL HEALTH RN) Chronic indwelling Constantino catheter Sleep apnea, unspecified Constipation Dry eye syndrome of unspecified lacrimal gland Unspecified glaucoma Gastro-esophageal reflux disease without esophagitis Benign prostatic hyperplasia without lower urinary tract symptoms Gout, unspecified Hyperlipidemia, unspecified 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 heart failure 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 Muscle weakness (generalized) COPD (chronic obstructive pulmonary disease) 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 Chronic atrial fibrillation, unspecified Open wound of left lower quadrant of abdominal wall without penetration into peritoneal cavity Intertriginous dermatitis associated with moisture Morbid obesity Atrial flutter Encounter for screening colonoscopy Repeat screening colonoscopy in 10 years unless otherwise specified Chronic low back pain Chronic right shoulder pain Diabetes mellitus Shoulder pain BILATERAL Encounter for long-term use of opiate analgesic Right knee pain Amputation above knee Left Diabetes type 2, controlled Essential hypertension Dysuria-frequency syndrome Seizure BPH (benign prostatic hyperplasia) Primary osteoarthritis of both knees r knee Sleep apnea Surgical History History of left above knee amputation History of shoulder surgery 2002 x 2 L shoulder Family History Other Heart disease Hypertension Social History Smoking and tobacco/nicotine status: current some day tobacco/nicotine user smokeless tobacco Smokeless tobacco user: chewing tobacco Smokeless tobacco details: 2 cans a day Quit status (tobacco/nicotine): not considering quitting Second hand smoke exposure: No Alcohol intake: never Substance/Drug Use: never Additional social history: Patient chews a can of tobacco daily. 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 Vitals/I&O/Wt Last Vital Signs Temp 98.3 F 03/13/25 07:57 Pulse 112 H 03/13/25 11:23 Resp 19 H 03/13/25 11:04 BP 120/69 03/13/25 11:23 Pulse Ox 99 03/13/25 11:23 03/12/25 03/13/25 03/13/25 22:59 06:59 14:59 Intake Total 300 / 300 Balance 300 / 300 Weight last 48 hrs Weight 132.8 kg Weight 131.542 kg Physical Exam Const: GENERAL APPEARANCE: cooperative ORIENTATION/CONSCIOUSNESS: Yes awake, Yes oriented to person, Yes oriented to place and Yes oriented to time HENMT: COMMON NORMALS: normocephalic, atraumatic and hearing grossly normal bilaterally HEAD & SCALP: normocephalic and atraumatic Resp: COMMON NORMALS: normal respiratory effort, No retractions, No use of accessory muscles and clear to auscultation bilaterally AUSCULTATION: clear to auscultation bilaterally Cardio: COMMON NORMALS: regular rate, regular rhythm and No murmurs present (Cardio) RATE: regular rate RHYTHM: regular rhythm GI: COMMON NORMALS: Soft to palpation and No hepatosplenomegaly present AUSCULTATION: Yes normoactive bowel sounds PALPATION: Yes Soft to palpation, No Tenderness to palpation present (GI), No Guarding due to palpation present (GI) and Yes No hepatosplenomegaly present Neuro: SENSORIUM/ORIENTATION: Yes oriented to person, Yes oriented to place and Yes oriented to time Skin: OTHER: Superficial ulcer of the scrotum, medial malleolus left ankle and overlying the greater trochanter on the left hip. Data 03/13/25 05:25 03/13/25 05:25 A&P Assessment and plan 1. Encephalopathy acute: LSN last night at [facility] Today patient woke with hallucinations and confusion Suspected infection rule out Urinalysis; 2+ bacteria, 2+ leukocytes, 1+ blood, 8.5 pH, WBC 21.5, nitrate positive Fall risk precautions PT/OT 2. Chronic atrial fibrillation: Diltiazem EKG Telemetry 3. JESSICA (acute kidney injury): Creat 1.7. BUN 58 BNP 852 > 369, trending down from a couple of weeks ago, monitor Low sodium diet Fluid restriction I&O CMP monitoring 4. Morbid obesity: > 500 pounds Dietary and exercise considerations Fall risk precautions 5. Obstructive sleep apnea syndrome: Patient on home CPAP Planning for new sleep study on 03/21/2025 Patient CPAP at home is not working properly and he needs a new one Consider case management recommendations 6. Transaminitis: AST 140, ALT 81, bili 1.6, lipase 282 CRP 13.6 Avoid hepatotoxic agents Patient reports no current alcohol use Monitor CMP PDMP PDMP Reviewed: Not Reviewed Attestations Medical Necessity Statement*: Continue monitoring for altered mental status and abnormal lab values. Diagnoses Encephalopathy acute G93.40 Chronic atrial fibrillation I48.20 Atrial fibrillation type: unspecified chronic JESSICA (acute kidney injury) N17.9 Morbid obesity E66.01 Obstructive sleep apnea syndrome G47.33 Sleep apnea type: obstructive Transaminitis R74.01 Time Spent (min) 70
--- NOTE | 2025-03-13 17:00 | PC.NURSE ---
Discuss with BG Howard about pt's chronic pereira catheter that was replaced from his previous hospitalization on 02/11. Family was concerned about his pereira. Also discuss if we can get an order for a BIPAP machine. Anita PEDERSON discuss about reaching out to urologist in [place] tomorrow.
[2025-03-13] MEDS: fluticasone nasal spray 16gm Btl 1 SPRAY INTRANASAL (17:28)
[2025-03-13] MEDS: brimonidine 0.2% Op Soln 5 mL Btl 1 DROP EYE-BOTH (20:20)
[2025-03-13 23:30] LABS: Hepatitis A Antibody IgM Non-Reactive (Nonreactive); Hepatitis B Surface Antigen Non-Reactive (Nonreactive)
[2025-03-14] VITALS (18 sets, daily range): BP systolic 97–109; BP diastolic 54–71; PULSE 97–111; RESP 14–20; TEMP 36.8–38.2; O2SAT 96–100
[2025-03-14] MEDS: fluticasone nasal spray 16gm Btl 1 SPRAY INTRANASAL ×2 (04:18→17:02)
[2025-03-14] MEDS: brimonidine 0.2% Op Soln 5 mL Btl 1 DROP EYE-BOTH ×2 (04:19→17:03)
[2025-03-14] MEDS: linezolid premix 600 MG/300 ML PREMIX 300 MG IV (05:25)
[2025-03-14 05:35] LABS: Hematocrit 28.7 % (37-53); Hemoglobin 8.90 g/dL (11.27-16.99); Mean Corpuscular HGB Conc 31.0 g/dL (30-55); Mean Corpuscular Hemoglobin 25.4 pg (27-33); Mean Corpuscular Volume 81.8 fl (82-101); Nucleated Red Blood Cells % 0 %; Platelet Count 186 10^3/cmm (157-399); Red Blood Count 3.51 10^6/uL (3.85-5.65); White Blood Count 6.32 10^3/uL (3.29-11.43)
[2025-03-14 05:56] LABS: Alanine Aminotransferase 91 U/L (0-41); Albumin Level 3.5 g/dL (3.5-5.2); Alkaline Phosphatase 108 U/L (40-130); Anion Gap 20.1 (5-19); Aspartate Amino Transferase 143 U/L (0-40); Blood Urea Nitrogen 73 mg/dL (8-23); Calcium 9.6 mg/dL (8.5-10.5); Carbon Dioxide 22 mmol/L (22-29); Chloride 103 mmol/L (98-107); Globulin 3.4 g/dL (1.3-4.6); Glucose 255 mg/dL (65-115); Osmolality Calculated 322 mOsm/kg (285-295); Potassium 4.1 mmol/L (3.5-5.1); Sodium 141 mmol/L (136-145); Total Protein 6.9 g/dL (6.6-8.7)
[2025-03-14 05:59] LABS: Ferritin 70 ng/mL (30-400)
[2025-03-14 06:05] LABS: Estmated Average Glucose 160; Hemoglobin A1C 7.2 % (4.0-6.0)
[2025-03-14] MEDS: AMIODARONE HCL/D5W 900 MG/500 ML BAG 33.33 MG IV (06:07)
[2025-03-14] MEDS: pantoprazole 40 mg SDV IVP (08:57)
[2025-03-14] MEDS: cefTRIAXone 1,000 mg SDV 1000 MG IVP (08:57)
--- NOTE | 2025-03-14 12:46 | PM.PN ---
Subjective Subjective: Patient seen this morning in the stepdown unit. He is a 59-year-old male with left above-knee amputation, who presented to the ER yesterday with apparent altered mental status. Thought to have a UTI from chronic catheter, patient started on IV antibiotics. Currently, we are trying to change the Constantino, urinary Constantino has been there for the last 31 days. Vitals/I&O/Wt Last Vital Signs Temp 98.8 F 03/14/25 11:40 Pulse 100 03/14/25 11:43 Resp 20 H 03/14/25 11:43 BP 102/60 03/14/25 11:40 Pulse Ox 96 03/14/25 11:43 O2 Del Method Nasal Cannula 03/14/25 11:43 O2 Flow Rate 2 03/14/25 11:43 FiO2 28 03/14/25 07:28 03/13/25 03/14/25 03/14/25 22:59 06:59 14:59 Intake Total 660 / 1320 600 / 1920 572.201 / 572.201 Output Total 1999 600 / 2600 Balance -1340 / -680 0 / -680 572.201 / 572.201 Weight last 48 hrs Weight 132.988 kg Weight 132.8 kg Weight 131.542 kg Physical Exam Narrative: General: Drowsy/sleepy patient. Otherwise, fairly interactive and follows command. Respiration: No evidence of respiratory distress. Abdomen: Morbidly obese abdomen. Little pannus. UGS: Indwelling Constantino noted, with very flaccid penis buried in the abdominal pannus. Extremity: Right lower extremity thin. Left AKA stump intact. Skin: No obvious abnormal rashes noted in exposed areas of the skin. Urinary Catheter Management: Constantino: Cath Placed During This Visit: no Reason for Continuing Indwelling Catheter: Chronic Indwelling Urinary Catheter on Admission Data 03/14/25 05:16 03/14/25 05:16 Micro: Microbiology 03/13/25 05:49 Urine Culture - Preliminary Urine,Clean Catch Gram Negative Rods A&P Assessment and plan 1. Encephalopathy acute: 2. Catheter-associated urinary tract infection: 3. Acute renal failure: 4. Elevated liver enzymes: 5. Chronic indwelling Constantino catheter: 6. Diabetes type 2, controlled: 7. Morbid obesity: 8. Essential hypertension: 9. senior living (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 of anticoagulants: 10. COPD (chronic obstructive pulmonary disease): 11. Amputation above knee: Plan: 1. Acute metabolic encephalopathy from apparent catheter associated UTI: Urine culture growing gram-negative organisms, likely E. coli; final identification and susceptibility still awaited. Patient currently on Rocephin and Zyvox; I think it will be okay to withdraw the Zyvox and just continue on the Rocephin only at this time, pending final urine culture. In the meantime, we will going to change a Constantino, and take it from there. 2. Chronic indwelling Constantino catheter: I noticed a very flaccid penis that is buried heavily in the very pendulous and adipose lower anterior abdominal wall. We will try changing Constantino, and take it from there. If not able to replace the indwelling Constantino after removing it, we will consider possible referral to urology for this. 3. Elevated liver enzymes: This is likely due to shock liver. Continue ongoing conservative management, monitor closely. This is likely to resolve in the next few days. 4. Acute renal failure, obviously prerenal: I will cautiously rehydrate patient with half saline, and monitor these numbers closely. Otherwise, watch out for fluid overload. 5. Type 2 diabetes mellitus: Continue blood sugar basal-Premeal insulin. 6. Long-term use of anticoagulant, due to apparent intermitted A-fib: Patient had an episode of RVR last time, therefore requiring him to be put on drip of amiodarone. He is currently rate controlled. We will DC the amiodarone, and resume patient's home dose of metoprolol. If this is not able to control the A-fib, I think patient can be started on some oral immediate-realease diltiazem, at least in the interim. 7. COPD: Not in exacerbation at this time. Patient already on DuoNeb updraft; will make this as needed. PDMP PDMP Reviewed: Not Reviewed Attestations Medical Necessity Statement*: Still acutely sick patient, septic, though doing better. He is estimated to very likely to still require more than 2 midnights stay in the hospital to achieve appropriate treatment. Patient could be moved to medical floor if he continues to improve. Anticipate discharge in the next 3 days. Coding Level of Care Code 02678 Diagnoses Encephalopathy acute G93.40 Catheter-associated urinary tract infection T83.511A; N39.0 Acute renal failure N17.9 Elevated liver enzymes R74.8 Chronic indwelling Constantino catheter Z97.8 Diabetes type 2, controlled E11.9 Morbid obesity E66.01 Essential hypertension I10 senior living (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 of anticoagulants Z79.01 COPD (chronic obstructive pulmonary disease) J44.9 Amputation above knee S78.119A
--- NOTE | 2025-03-14 14:24 | PC.NURSE ---
pereira changed per dr luciano order.#16 fr coude catheter inserted w/o diff.return of clear light yellow urine noted.pt tolerated procedure well
[2025-03-14] MEDS: HYDROcodone-acetaminophen 5-325 mg Tablet 1 TAB PO (17:03)
[2025-03-15] VITALS (13 sets, daily range): BP systolic 99–119; BP diastolic 52–65; PULSE 95–103; RESP 17–27; TEMP 36.4–36.9; O2SAT 95–99; BMI 40.0
[2025-03-15] MEDS: AMIODARONE HCL/D5W 900 MG/500 ML BAG 16.67 MG IV (04:23)
[2025-03-15] MEDS: cefTRIAXone 1,000 mg SDV 1000 MG IVP (04:24)
[2025-03-15] MEDS: brimonidine 0.2% Op Soln 5 mL Btl 1 DROP EYE-BOTH ×2 (04:25→17:21)
[2025-03-15] MEDS: fluticasone nasal spray 16gm Btl 1 SPRAY INTRANASAL ×2 (04:26→17:21)
[2025-03-15 04:33] LABS: Hematocrit 24.1 % (37-53); Hemoglobin 7.70 g/dL (11.27-16.99); Mean Corpuscular HGB Conc 32.0 g/dL (30-55); Mean Corpuscular Hemoglobin 25.6 pg (27-33); Mean Corpuscular Volume 80.1 fl (82-101); Nucleated Red Blood Cells % 0 %; Platelet Count 146 10^3/cmm (157-399); Red Blood Count 3.01 10^6/uL (3.85-5.65); White Blood Count 5.37 10^3/uL (3.29-11.43)
[2025-03-15 04:56] LABS: Alanine Aminotransferase 84 U/L (0-41); Albumin Level 3.2 g/dL (3.5-5.2); Alkaline Phosphatase 96 U/L (40-130); Anion Gap 21.7 (5-19); Aspartate Amino Transferase 128 U/L (0-40); Blood Urea Nitrogen 71 mg/dL (8-23); Calcium 8.9 mg/dL (8.5-10.5); Carbon Dioxide 19 mmol/L (22-29); Chloride 100 mmol/L (98-107); Globulin 3.2 g/dL (1.3-4.6); Glucose 192 mg/dL (65-115); Osmolality Calculated 310 mOsm/kg (285-295); Potassium 3.7 mmol/L (3.5-5.1); Sodium 137 mmol/L (136-145); Total Protein 6.4 g/dL (6.6-8.7)
[2025-03-15] MEDS: pantoprazole 40 mg SDV IVP (08:29)
[2025-03-15] MEDS: HYDROcodone-acetaminophen 5-325 mg Tablet 1 TAB PO (08:30)
--- NOTE | 2025-03-15 09:44 | P.PN_ITS ---
Subjective 2 Subjective: Seen again this morning in the cardiac stepdown unit, patient denies any new complaints. He is still on amiodarone drip, and tolerating treatment plan so far. The rest of the overnight stay has been uneventful. Vitals/I&O/Wt Last Vital Signs Temp 97.8 F 03/15/25 07:20 Pulse 95 03/15/25 08:00 Resp 18 03/15/25 08:00 BP 115/65 03/15/25 07:20 Pulse Ox 98 03/15/25 08:00 O2 Del Method Nasal Cannula 03/15/25 08:00 O2 Flow Rate 2 03/15/25 08:00 FiO2 28 03/14/25 23:11 03/14/25 03/15/25 03/15/25 22:59 06:59 14:59 Intake Total 480 / 5943.787 9981.720 / 2298.921 Output Total 800 / 800 1350 / 2150 Balance -320 / 252.201 -103.280 / 148.921 Weight last 48 hrs Weight 133.8 kg Weight 132.988 kg Weight 132.8 kg Physical Exam 2 Narrative: General: Awake and alert. Cooperative. Respiration: No obvious respiratory distress. Abdomen: Soft. Obese+++. Nontender. No obvious organomegaly. Extremities: No obvious pitting pedal edema. Stable Left AKA Stump Skin: No obvious new rashes or any resurgence of skin lesions. Urinary Catheter Management: Constantino: Cath Placed During This Visit: yes, but has since been removed by the nurse Reason for Continuing Indwelling Catheter: Chronic Indwelling Urinary Catheter on Admission Urinary Catheter Date of Insertion: 03/14/25 Urinary Catheter Time of Insertion: 14:00 Date Urinary Catheter Removed: 03/14/25 Time Urinary Catheter Discontinued: 14:00 Coude: Cath Placed During This Visit: no Reason for Continuing Indwelling Catheter: Accurate Measurement of Urinary Output in Critically Ill Patients Data 03/15/25 04:08 03/15/25 04:08 Micro: Microbiology 03/13/25 05:49 Urine Culture - Preliminary Urine,Clean Catch Gram Negative Rods A&P Assessment and plan 1. Acute metabolic encephalopathy: 2. Catheter-associated urinary tract infection: 3. Hyperglycemia without ketosis: 4. Acute renal failure: 5. Elevated liver enzymes: 6. Diabetes type 2, controlled: 7. [facility] (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 of anticoagulants: 8. Chronic indwelling Constantino catheter: 9. Essential hypertension: 10. Morbid obesity: Plan: 1. Acute metabolic encephalopathy from the associated UTI: Urine culture grew some more than 100,000 CFU's per mL of gram negative rods. Final identification and susceptibility result pending. Therefore, continue patient on IV Rocephin, pending final culture results. 2. Acute renal failure with associated elevated liver enzymes: This is likely due to hypotension occasioned by #1 above. I will cautiously rehydrate patient with half saline, and reassess/recheck kidney and liver function in the morning. In the middle, we stay away from possible nephrotoxic and hepatotoxic medications; I had already changed antibiotics accordingly yesterday. Given reported history of CHF, which does not currently manifest in the form of any fluid retention, we will reach out for fluid overload. 3. Hyperglycemia due to poorly controlled diabetes mellitus: Review of patient's home medication list showed that he takes high-dose of both long-acting and short acting insulin. As a result, I will add Lantus to patient's sliding scale insulin. Also, adding Premeal insulin of 5 units with meals, in addition to ongoing sliding scale. Will adjust dose as needed. 4. Poorly controlled A-fib, chronic, with long-term anticoagulation: Patient is currently on some amiodarone drip since yesterday. Also, noted that he has not been on his home segundo blockers, including metoprolol, diltiazem and amiodarone for this. As a result, I am resuming all of these, with plan to wean off amiodarone drip. Continue to monitor blood pressure, and other vital signs closely. 5. Essential hypertension: Blood pressure has been on the soft side so far. This is likely due to a combination of factors, which include a UTI that that was mentioned in #1 above. It could also be due to iatrogenic causes. Like mentioned in problem #2 above, we will cautiously rehydrate patient w/ IV fluid, and then make changes as needed. PDMP PDMP Reviewed: Not Reviewed Attestations 2 Medical Necessity Statement*: Still currently sick patient, with unstable vital signs. He will estimatedly require at least up to 1 to 2 days of continued inpatient stay to optimally treat acute problems, and further control comorbidities, as clearly outlined in Assessment and Plan above. 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
[2025-03-15] MEDS: insulin glargine 100 units/1 mL 30 UNIT SUBCUT (17:22)
[2025-03-16] VITALS (12 sets, daily range): BP systolic 118–160; BP diastolic 54–81; PULSE 50–101; RESP 16–22; TEMP 36.5–37.1; O2SAT 92–100; BMI 40.4
--- NOTE | 2025-03-16 00:04 | PC.NURSE ---
22:35 AMIO gtt stopped per MD order , stopped at 22:47 notified MD earlier re: pt on AMIO gtt IV then at 3am will be given Cardizem then AMIO around 4am. pt also on Metoprolol. MD ordered to stop AMIO IV gtt now. Done. HR 90-100 AFIB, pt asymptomatic, SBP 106, LFT blood level is increasing. 00:19 assisted pt to side of bed, pt using urinal to void, unable to void. Pt will try again later. Cough med administered PO- harsh well.
[2025-03-16 04:09] LABS: Hematocrit 25.7 % (37-53); Hemoglobin 7.80 g/dL (11.27-16.99); Mean Corpuscular HGB Conc 30.4 g/dL (30-55); Mean Corpuscular Hemoglobin 24.8 pg (27-33); Mean Corpuscular Volume 81.8 fl (82-101); Nucleated Red Blood Cells % 0 %; Platelet Count 137 10^3/cmm (157-399); Red Blood Count 3.14 10^6/uL (3.85-5.65); White Blood Count 4.51 10^3/uL (3.29-11.43)
[2025-03-16 04:48] LABS: Alanine Aminotransferase 86 U/L (0-41); Albumin Level 3.2 g/dL (3.5-5.2); Alkaline Phosphatase 101 U/L (40-130); Anion Gap 16.7 (5-19); Aspartate Amino Transferase 131 U/L (0-40); Blood Urea Nitrogen 56 mg/dL (8-23); Calcium 9.0 mg/dL (8.5-10.5); Carbon Dioxide 21 mmol/L (22-29); Chloride 100 mmol/L (98-107); Globulin 3.2 g/dL (1.3-4.6); Glucose 152 mg/dL (65-115); Osmolality Calculated 296 mOsm/kg (285-295); Potassium 3.7 mmol/L (3.5-5.1); Sodium 134 mmol/L (136-145); Total Protein 6.4 g/dL (6.6-8.7)
[2025-03-16] MEDS: fluticasone nasal spray 16gm Btl 1 SPRAY INTRANASAL (05:10)
[2025-03-16] MEDS: brimonidine 0.2% Op Soln 5 mL Btl 1 DROP EYE-BOTH (05:11)
[2025-03-16] MEDS: pantoprazole 40 mg SDV IVP (08:34)
[2025-03-16] MEDS: HYDROcodone-acetaminophen 5-325 mg Tablet 1 TAB PO (11:36)
--- NOTE | 2025-03-16 12:00 | PC.SOCIAL ---
IMM Update pg 2 of IMM Updated and reviewed w/ patient. Copy provided and copy dated, initialed and placed in chart.
--- NOTE | 2025-03-16 13:32 | P.DS_ITS ---
Discharge Providers Date of Admission: 03/13/25 08:22 Date of Discharge: March 16, 2025 Attending Provider at Admission: Jorge Solis MD Attending Provider at Discharge: Jorge Solis MD Primary Care Provider: Chris Parker DO Diagnoses at Discharge Discharge Diagnosis 1. Acute metabolic encephalopathy: 2. Catheter-associated urinary tract infection: 3. Hyperglycemia without ketosis: 4. Acute renal failure: 5. Elevated liver enzymes: 6. Diabetes type 2, controlled: 7. senior care (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 of anticoagulants: 8. Chronic indwelling Constantino catheter: 9. Essential hypertension: 10. Morbid obesity: Reason for Visit Reason for Visit: AMS Brief History: Patient presented with altered mental status. Given urinalysis findings, he was diagnosed of UTI with encephalopathy. IV antibiotics were started, while the indwelling Constantino that he is on was changed. Given finding of A-fib RVR, he was initiated on amiodarone drip. We were able to finally successfully wean this off, and control patient's A-fib with he is home medications, as adjusted. Hospital Course Hospital Course All other concomitant symptoms were treated empirically. The active chronic medical problems were treated with home medications, as adjusted; blood sugar was controlled with basal-prandial insulin. As of 2 days ago, urine culture grew more than 100,000 CFU's per mL of gram- negative rods. However, as at this morning, the identification and sensitivity result is been awaited. That stated, given remarkable and satisfactorily impressive clinical response to IV Rocephin, patient therefore deemed fit to be discharged on empirically similar cephalosporins for the gram-negative rods-causing UTI. Advised to follow-up in 2 to 3 days time for eventual culture identification and sensitivity, and if further possible adjustment of the antibiotics, if ever needed. Overall, patient responded well to treatment, and therefore deemed fit for discharge today. See my discharge orders and discharge instructions for more details. Physical Exam Narrative: General: Awake and alert patient. Resp: No obvious respiratory distress or difficulty breathing. Abdomen obese. Stable pendulous anterior abdominal wall. UGS: Indwelling Constantino draining clear, marian-colored urine. Skin: No obvious rashes or new skin lesions. All other physical findings essentially within normal limits/back to his baseline.. Urinary Catheter Management: Constantino: Cath Placed During This Visit: yes, but has since been removed by the nurse Reason for Continuing Indwelling Catheter: Accurate Measurement of Urinary Output in Critically Ill Patients Urinary Catheter Date of Insertion: 03/14/25 Urinary Catheter Time of Insertion: 14:00 Date Urinary Catheter Removed: 03/14/25 Time Urinary Catheter Discontinued: 14:00 Coude: Cath Placed During This Visit: no Reason for Continuing Indwelling Catheter: Accurate Measurement of Urinary Output in Critically Ill Patients Discharge Data Studies Completed and Pending Completed Studies During Hospitalization Category Date Time Status CT abdomen pelvis wo con [id number] Stat Cat Scan 03/13/25 07:05 Completed XR chest 1V portable [id number] Stat Exams 03/13/25 05:44 Completed Pending at discharge Category Date Time Status Blood Culture Stat Lab 03/13/25 06:19 Received Comprehensive Metabolic Panel AM LABS Lab 03/17/25 04:00 Ordered Urine Culture Stat Lab 03/13/25 05:49 Results Radiology Impressions Chest X-Ray 03/13/25 05:44 1. Suspected small to moderate left pleural effusion. 2. Bibasilar interstitial opacities. Possible edema. Abdomen/Pelvis CT 03/13/25 07:05 1. No acute abdominal or pelvic abnormalities identified. 2. Overall the entire study is limited by patient's physical and clinical condition. 3. No ascites or significant soft tissue anasarca. 4. Splenomegaly. 5. Cholelithiasis without evidence for acute cholecystitis. 6. Cardiomegaly. 7. No renal obstruction. Microbiology: Urine Culture Preliminary 03/14/25 Organism 1 Gram Negative Rods [place] Count >100,000 CFU/ml Vitals Last Vital Signs Temp 97.9 F 03/16/25 12:00 Pulse 98 03/16/25 12:00 Resp 17 03/16/25 12:00 BP 118/63 03/16/25 12:00 Pulse Ox 97 03/16/25 11:59 O2 Del Method Nasal Cannula 03/16/25 11:59 O2 Flow Rate 2 03/16/25 11:29 FiO2 28 03/16/25 04:00 Discharge Plan Discharge Patient Disposition: Xfer SNF Condition: Stable Prescriptions: New cephalexin 500 mg capsule 500 mg PO Q8H Qty: 30 0RF Continued montelukast 10 mg tablet 10 mg PO BEDTIME allopurinol 300 mg tablet 300 mg PO DAILY cholecalciferol (vitamin D3) 1,000 unit capsule 1,000 unit PO DAILY tamsulosin [Flomax] 0.4 mg capsule 0.4 mg PO BID hydrocodone-acetaminophen 5-325 mg tablet 1 tab PO TID PRN (Reason: pain) 30 Days Qty: 90 0RF magnesium hydroxide [Milk of Magnesia] 400 mg/5 mL suspension 30 ml PO .Q72H PRN (Reason: Constipation) Fleet Enema 19-7 gram/118 mL enema 118 ml UT DAILY PRN (Reason: Constipation) metoclopramide HCl [Reglan] 10 mg tablet 10 mg PO QID Niva-Plus 27 mg iron- 1 mg tablet 1 tab PO DAILY metoprolol tartrate 100 mg tablet 100 mg PO BID lidocaine 5 % adhesive patch,medicated 1 patch topical BID Rx Instructions: leave on most painful area for up to 12 hrs esomeprazole magnesium 40 mg capsule,delayed release(DR/EC) 40 mg PO BID acetaminophen 500 mg capsule 500 mg PO Q6H PRN (Reason: pain or fever) Breztri Aerosphere 160-9-4.8 mcg/actuation HFA aerosol inhaler 2 inh inhalation BID fluticasone propionate 50 mcg/actuation spray,suspension 1 spray INTRANASAL BID Qty: 15.8 6RF pregabalin 50 mg capsule 50 mg PO TID Qty: 90 5RF bumetanide 2 mg tablet 2 mg PO TID Rx Instructions: along with 1mg to=3mg total bumetanide 1 mg tablet 1 mg PO TID Rx Instructions: along with 2mg to=3mg total spironolactone 50 mg tablet 50 mg PO DAILY Artificial Tears (PF) Dropperette 1 drp OPHTHALMIC (EYE) Q2H PRN (Reason: irritation) Gold Castillo Medicated Body 0.8 % Powder See Rx Instructions .ROUTE .COMPLEX Rx Instructions: Cleanse abdominal folds ensuring completely dry then apply to entire abd ominal folds and under arms every shift. insulin aspart U-100 100 unit/mL (3 mL) insulin pen 30 unit SUBCUT TID Rx Instructions: with meals ondansetron 8 mg tablet,disintegrating 8 mg PO Q6H PRN (Reason: Nausea And Vomiting) potassium chloride 20 mEq tablet,ER particles/crystals 20 meq PO DAILY Linzess 72 mcg capsule 72 mcg PO DAILY insulin degludec [Tresiba FlexTouch U-100] 100 unit/mL (3 mL) insulin pen 90 unit SUBCUT BEDTIME albuterol sulfate 2.5 mg /3 mL (0.083 %) solution for nebulization 2.5 mg inhalation Q6H PRN (Reason: Dyspnea) brinzolamide 1 % drops,suspension 1 drp ophthalmic (eye) BID brimonidine 0.2 % drops 1 drp ophthalmic (eye) BID diclofenac sodium 1 % gel 2 g TOPICAL TID PRN (Reason: Pain) latanoprost 0.005 % drops 1 drp ophthalmic (eye) BEDTIME Systane Nighttime 94-3 % Ointment 1 applic OPHTHALMIC (EYE) BEDTIME atorvastatin 20 mg tablet 20 mg PO DAILY triamcinolone acetonide 0.1 % cream 1 applic TOPICAL BID PRN (Reason: skin irritation on ears) diltiazem HCl [Cardizem CD] 180 mg capsule,extended release 24hr 180 mg PO DAILY Qty: 30 0RF amiodarone 400 mg tablet 400 mg PO QAM bisacodyl 5 mg Tablet 10 mg PO DAILY PRN (Reason: Constipation) (DME) Ocusoft Eyelid Cleansing Pads Pad MISCELLANEOUS Ozempic 1 mg/dose (4 mg/3 mL) pen injector 1 mg SUBCUT Q7D Rx Instructions: Wednesday Discharge Order = DC NOW: Discharge Order (Routine); Ordered 03/16/25 Ordered By: Jorge Solis Referrals: [facility] [Outside] Chris Parker DO [Primary Care Provider, Internal Medicine] Discharge Diet: Cardiac and Diabetic Discharge Activity: Resume usual activity Patient Instructions: Atrial Fibrillation, COPD, Type 2 Diabetes, Cephalexin (By mouth), Heart Failure (DC), Acute Kidney Injury (DC), Altered Mental Status (ED), Opioid Safety, Patient Portal & Neeraj Instructions Discharge Attestations Time Spent in Discharge Care*: greater than 30 min Quality Metrics Clinical Quality Measures [ No reported AMI, CVA or VTE this stay] Coding Level of Care Code Acute Code for Chg Fwd Diagnoses Acute metabolic encephalopathy G93.41 Catheter-associated urinary tract infection T83.511A; N39.0 Hyperglycemia without ketosis R73.9 Acute renal failure N17.9 Elevated liver enzymes R74.8 Diabetes type 2, controlled E11.9 intermodal dispatcher (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 of anticoagulants Z79.01 Chronic indwelling Constantino catheter Z97.8 Essential hypertension I10 Morbid obesity E66.01
--- NOTE | 2025-03-16 14:28 | PC.NURSE ---
Report given to Maryann at [facility]. Patient stable and awaiting transfer.
== END 2025-03-16 15:55 | disposition skilled nursing facility (03) | DRG 698 ==
LOC: ER 07:39 → ER IP 08:23 → CSU 10:59
PROVIDERS: Clinical Nurse Specialist Acute Care; Admitting Provider Family Medicine; Emergency Provider Family Medicine; PCP Internal Medicine; Visit Provider Family Medicine
DX: T83.511A Infection and inflammatory reaction due to indwelling urethral catheter, initial encounter (principal); G93.41 Metabolic encephalopathy; N17.9 Acute kidney failure, unspecified; Z68.41 Body mass index [BMI] 40.0-44.9, adult; I48.20 Chronic atrial fibrillation, unspecified; D61.818 Other pancytopenia; Y73.8 Miscellaneous gastroenterology and urology devices associated with adverse incidents, not elsewhere classified; E11.65 Type 2 diabetes mellitus with hyperglycemia; I10 Essential (primary) hypertension; E66.01 Morbid (severe) obesity due to excess calories; N28.89 Other specified disorders of kidney and ureter; L30.9 Dermatitis, unspecified; I95.9 Hypotension, unspecified; R74.8 Abnormal levels of other serum enzymes; N40.0 Benign prostatic hyperplasia without lower urinary tract symptoms; G89.29 Other chronic pain; M54.50 Low back pain, unspecified; M25.512 Pain in left shoulder; M25.511 Pain in right shoulder; E78.5 Hyperlipidemia, unspecified; M10.9 Gout, unspecified; K21.9 Gastro-esophageal reflux disease without esophagitis; H40.9 Unspecified glaucoma; G47.33 Obstructive sleep apnea (adult) (pediatric); F17.220 Nicotine dependence, chewing tobacco, uncomplicated; J44.9 Chronic obstructive pulmonary disease, unspecified; Z79.01 Long term (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 of anticoagulants; Z79.51 Long term (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 of 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; Z79.4 Long term (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 of insulin; Z79.85 Long-term (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 of injectable non-insulin antidiabetic drugs; Z99.81 Dependence on supplemental oxygen; Z89.612 Acquired absence of left leg above knee
CPT/HCPCS: 36415; 36416; 71045; 74176; 80053; 80074; 81001; 82009; 82550; 82728; 82962; 83036; 83605; 83690; 83735; 83880; 84484; 85025; 86140; 87040; 87077; 87086; 87186; 87637; 93005; 94640; 94660; 96365; 96372; 96375; 97167; 99285; A4222; J0282; J0692; J0696; J1815; J2020; J2470; J7626; J8597; J9999

== ENCOUNTER → 2025-03-19 09:16 | Outpatient (BNVA) | payer MEDICARE, MEDICAID, SELFPAY | PROVIDERS: PCP Internal Medicine; Visit Provider Nurse Practitioner Family | DX: R07.9 Chest pain, unspecified (principal); R06.02 Shortness of breath; G47.30 Sleep apnea, unspecified; I10 Essential (primary) hypertension; E11.9 Type 2 diabetes mellitus without complications; Z79.4 Long term (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 of insulin; I48.91 Unspecified atrial fibrillation; E86.0 Dehydration; Z87.891 Personal history of nicotine dependence; I48.20 Chronic atrial fibrillation, unspecified | CPT/HCPCS: 93005; 99214 ==

== ENCOUNTER 2025-03-20 09:44 | Oncology outpatient (recurring) (ONCR) | payer MEDICARE, MEDICAID, SELFPAY ==
[2025-03-20 10:43] LABS: Hematocrit 28.9 % (37-53); Hemoglobin 9.00 g/dL (11.27-16.99); Mean Corpuscular HGB Conc 31.1 g/dL (30-55); Mean Corpuscular Hemoglobin 25.0 pg (27-33); Mean Corpuscular Volume 80.3 fl (82-101); Nucleated Red Blood Cells % 0 %; Platelet Count 164 10^3/cmm (157-399); Red Blood Count 3.60 10^6/uL (3.85-5.65); White Blood Count 6.44 10^3/uL (3.29-11.43)
[2025-03-20 11:08] LABS: Alanine Aminotransferase 66 U/L (0-41); Albumin Level 3.5 g/dL (3.5-5.2); Alkaline Phosphatase 122 U/L (40-130); Anion Gap 18.1 (5-19); Aspartate Amino Transferase 72 U/L (0-40); Blood Urea Nitrogen 39 mg/dL (8-23); Calcium 9.1 mg/dL (8.5-10.5); Carbon Dioxide 20 mmol/L (22-29); Chloride 104 mmol/L (98-107); Creatinine Clr Calc Pharmacy 98.7452; Globulin 3.4 g/dL (1.3-4.6); Glucose 239 mg/dL (65-115); Osmolality Calculated 303 mOsm/kg (285-295); Potassium 4.1 mmol/L (3.5-5.1); Sodium 138 mmol/L (136-145); Total Protein 6.9 g/dL (6.6-8.7)
[2025-03-20 16:58] LABS: NT Pro B Type Natriuretic Pept 443 pg/mL (0-125)
== END 2025-04-01 23:59 | disposition home or self-care (01) ==
PROVIDERS: Internal Medicine Medical Oncology; Nurse Practitioner Family; PCP Internal Medicine; Visit Provider Nurse Practitioner
DX: D71.8 Other functional disorders of polymorphonuclear neutrophils (principal); R60.9 Edema, unspecified; I48.20 Chronic atrial fibrillation, unspecified
CPT/HCPCS: 36415; 80053; 82784; 83880; 85025; 99213

== ENCOUNTER 2025-04-06 05:09 | Inpatient (IN) | payer MEDICARE, MEDICAID, SELFPAY ==
--- OUTSIDE RECORDS SUMMARY | 2024-01-19 11:00 | XMS_ITS ---
Author Organization [employer] Address [address] [place] [address] Care Team Providers Care Binder Caser Name Role Phone EDI DILL Unavailable [phone] GAMA GARCIA Unavailable [phone] REASON FOR VISIT Cx by pts sister/ may call back to r/s-- Retention/VT Encounters Encounter Location Date Provider Diagnosis [employer], [employer] [address] [facility] [place] [address] 01/19/2024 GAMA GARCIA Plan Of Treatment Next Appt Details Provider Name:Kain Marroquin, 06/25/2025 02:00:00 PM, [address] [place], [address], Progress Notes * AMYMarciano LDOB: 4 (59 yo M)Acc No.[id number]:01/19/2024 Patient: Marciano HEDRICK Provider: SUMA Chaparro :1965 A ge:58 Y S ex:Male Date:01/19/2024 Address:[address], [place] Subjective: * Chief Complaints: * 1 . Cx by pts sister/ may call back to r/s-- Retention/VT. * Medical History: Objective: * Vitals: Assessment: Plan: * Treatment: * Billing Information: * Visit Code: * Procedure Codes: * Electronic signature of GAMA GARCIA APRN on 04/06/2025 at 05:19 AM LEATHER LACER Sign off status: Pending * Provider: Tram Garcia APRN-EXPORT DOCUMENTS CLERK Date: 0 01/19/2024 Generated for Miles silva/Poonam/Emiliano on: 1 06/07/2024 05:19 AM LEATHER LACER
--- OUTSIDE RECORDS SUMMARY | 2024-01-24 08:30 | XMS_ITS ---
Author Organization [employer] Address [address] [place] [address] Care Team Providers Care Breadman Name Role Phone EDI DILL Unavailable [phone] PHILLIP RAZO Unavailable [phone] REASON FOR VISIT retention/VT Encounters Encounter Location Date Provider Diagnosis [employer] [address] [place] [address] 01/24/2024 PHILLIP RAZO Plan Of Treatment Next Appt Details Provider Name:Kain Marroquin, 06/25/2025 02:00:00 PM, [address] [place], [address], Progress Notes * Marciano REYES LDOB: 4 (59 yo M)Acc No.[id number]:01/24/2024 Patient: Marciano HEDRICK Provider: She Razo APRN :1965 A ge:58 Y S ex:Male Date:01/24/2024 Address:[address], [place] Subjective: * Chief Complaints: * 1 . retention/VT. * Medical History: Objective: * Vitals: Assessment: Plan: * Treatment: * Billing Information: * Visit Code: * Procedure Codes: * Electronic signature of LORE RAZO APRN on 04/06/2025 at 05:18 AM BATCH BLENDER Sign off status: Pending * Provider: She Razo APRN Date: 0 01/24/2024 Generated for Miles silva/Poonam/Emiliano on: 1 06/07/2024 05:18 AM BATCH BLENDER
--- OUTSIDE RECORDS SUMMARY | 2025-01-03 | XMS_ITS ---
Author Organization [facility], [facility] Address [address] [place] [address] Care Team Providers Care Auto Design Checker Name Role Phone FUENTES EDI Irene [phone] REASON FOR VISIT Cystoscopy @ MAIN OR (Charity Lift) Encounters Encounter Location Date Provider Diagnosis [facility], [facility] [address] [place] [facility] [place] [address] 01/03/2025 EDI DILL Plan Of Treatment Next Appt Details Provider Name:Kain Marroquin, 06/25/2025 02:00:00 PM, [address] [place], [address], Progress Notes * Marciano REYES LDOB: 4 (59 yo M)Acc No.[id number]:01/03/2025 Patient: Marciano HEDRICK Provider: Tram DILL MD :1965 A ge:59 Y S ex:Male Date:01/03/2025 Address:[address], [place] * Billing Information: * Visit Code: * Procedure Codes: * Electronic signature of AUST IN MD FUENTES on 04/06/2025 at 05:17 AM RADIATION PROTECTION ENGINEER Sign off status: Pending * Provider: Tram DILL MD Date: 0 01/03/2025 Generated for Miles silva/Poonam/eTemilysmitting on: 1 06/07/2024 05:17 AM RADIATION PROTECTION ENGINEER
[2025-04-06] VITALS (79 sets, daily range): BP systolic 74–131; BP diastolic 39–74; PULSE 93–116; RESP 16–43; TEMP 37–38.3; O2SAT 91–99; BMI 41.8
--- OUTSIDE RECORDS SUMMARY | 2025-04-06 05:13 | XMS_ITS | Encounter Summary ---
Author Organization [facility] Address [address] [place] [address] Care Team Providers Care Internal Security Manager Name Role Phone Cuba Solano MD Primary Care Provider [phone] [phone] Encounter Details Date Type Department Care Team (Latest Contact Info) Description 11/22/2000 Outpatient Historical [facility] Family Medicine [place] [address] [address] Donte Borrego MD NO ADDRESS ON FILE Other and unspecified hyperlipidemia (Primary Dx); Encounter for long-term (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 of other medications Social History Tobacco Use Types Packs/Day Years Used Date Smoking Tobacco: Never Assessed Sex and Gender Information Value Date Recorded Sex Assigned at Not on file Legal Sex Male 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
--- OUTSIDE RECORDS SUMMARY | 2025-04-06 05:13 | XMS_ITS | Encounter Summary ---
Author Organization [facility] Address [address] [place] [address] Care Team Providers Care Heavy Equipment Field Mechanic Name Role Phone Cuba Solano MD Primary Care Provider [phone] [phone] Encounter Details Date Type Department Care Team (Late st Contact Info) Description 04/10/2008 Outpatient Historical [facility] [address] [place] [address] [place] [address] Per Perea NP [address] [place] [address] Social History Tobacco Use Types Packs/Day Years Used Date Smoking Tobacco: Never Assessed Cigarettes Smokeless Tobacco: Current Chew Alcohol Use Standard Drinks/Week Comments No 0 (1 standard drink = 0.6 oz pur e alcohol) Sex and Gender Information Value Date Recorded Sex Assigned at Not on file Legal 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
--- OUTSIDE RECORDS SUMMARY | 2025-04-06 05:13 | XMS_ITS | Encounter Summary ---
Author Organization [facility] Address [address] [place] [address] Care Team Providers Care Cellar Hand Name Role Phone Cuba Solano MD Primary Care Provider [phone] [phone] Encounter Details Date Type Department Care Team [...] on file Legal Sex Male 2:49 AM SKIN CARE CONSULTANT Gender Identity Not on file Sexual Orientation Not on file documented as of this encounter Plan of Treatment Not on file documented as of this encounter Visit Diagnoses Not on filedocumented in this encounter Care Teams Cellar Hand Relationship Specialty Start Date End Date Cuba Solano MD PCP - General 07/11/09 documented as of this encounter
--- OUTSIDE RECORDS SUMMARY | 2025-04-06 05:13 | XMS_ITS | Encounter Summary ---
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
--- OUTSIDE RECORDS SUMMARY | 2025-04-06 05:13 | XMS_ITS | Encounter Summary ---
Author Organization [facility] Address [address] [place] [address] Care Team Providers Care Digester Hand Name Role Phone Cuba Solano MD Primary Care Provider [phone] [phone] Encounter Details Date Type Department Care Team (Latest Contact Info) Description 01/07/2001 Outpatient Historical [facility] Family Medicine [place] [facility] [address] [address] Zara Royal, DO [address] [place] [address] Unspecified essential hypertension (Primary Dx); Other and unspecified hyperlipidemia; Allergy, unspecified not elsewhere classified; Traumatic amputation of leg(s) (complete) (partial), unilateral, at or above knee, 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 Social History Tobacco Use Types Packs/Day Years Used Date Smoking Tobacco: Never Assessed Sex and Gender Information Value Date Recorded Sex Assigned at Not on file Legal Sex Male 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
--- OUTSIDE RECORDS SUMMARY | 2025-04-06 05:13 | XMS_ITS | Encounter Summary ---
Author Organization [facility] Address [address] [place] [address] Care Team Providers Care Lead Software Test Engineer Name Role Phone Cuba Solano MD Primary Care Provider [phone] [phone] Encounter Details Date Type Department Care Team (Latest Contact Info) Description 05/11/2001 Outpatient Historical [facility] Family Medicine [place] [id number] [address] Donte Borrego MD NO ADDRESS ON FILE ACUTE SINUSITIS NOS (Primary Dx); CONJUNCTIVAL HEMORRHAGE; HYPERTENSION NOS Social History Tobacco Use Types Packs/Day Years Used Date Smoking Tobacco: Never Assessed Sex and Gender Information Value Date Recorded Sex Assigned at Not on file Legal Sex Male 2:49 AM PER DIEM PHYSICAL THERAPIST Gender Identity Not on file Sexual Orientation Not on file documented as of this encounter Plan of Treatment Not on file documented as of this encounter Visit Diagnoses Diagnosis Acute sinusitis, unspecified- Primary Conjunctival hemorrhage Unspecified essential hypertension documented in this encounter Care Teams Lead Software Test Engineer Relationship Specialty Start Date End Date Cuba Solano MD PCP - General 07/11/09 documented as of this encounter
--- OUTSIDE RECORDS SUMMARY | 2025-04-06 05:13 | XMS_ITS | Encounter Summary ---
Author Organization [facility] Address [address] [place] [address] Care Team Providers Care Care Transition Manager Name Role Phone Cuba Solano MD Primary Care Provider [phone] [phone] Encounter Details Date Type Department Care Team (Latest Contact Info) Description 07/04/2001 Outpatient Historical [facility] Family Medicine [place] [id number] [address] Donte Borrego MD NO ADDRESS ON FILE HYPERTENSION NOS (Primary Dx); HYPERLIPIDEMIA NEC/NOS; AFTERCARE CARE HOME USE MEDICATN; VACCINE FOR STREP PNEUMONIAE Social History Tobacco Use Types Packs/Day Years Used Date Smoking Tobacco: Never Assessed Sex and Gender Information Value Date Recorded Sex Assigned at Not on file Legal 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
--- OUTSIDE RECORDS SUMMARY | 2025-04-06 05:13 | XMS_ITS | Encounter Summary ---
Author Organization [facility] Address [address] [facility] Attn: [place] [address] Care Team Providers Care Feed Mill Supervisor Name Role Phone Cuba Solano MD Primary Care Provider [phone] [phone] Encounter Details Date Type Department Care Team (Late st Contact Info) Description 04/08/2001 Outpatient Historical Donte Borrego MD NO ADDRESS ON FILE Social History Tobacco Use Types Packs/Day Years Used Date Smoking Tobacco: Never Assessed Sex and Gender Information Value Date Recorded Sex Assigned at Not on file Legal Sex Male 2:49 AM DEBARKER OPERATOR Gender Identity Not on file Sexual Orientation Not on file documented as of this encounter Plan of Treatment Not on file documented as of this encounter Visit Diagnoses Not on filedocumented in this encounter Care Teams Feed Mill Supervisor Relationship Specialty Start Date End Date Cuba Solano MD PCP - General 07/11/09 documented as of this encounter
--- OUTSIDE RECORDS SUMMARY | 2025-04-06 05:13 | XMS_ITS | Encounter Summary ---
Author Organization [facility] Address [address] [place] [address] Care Team Providers Care Dimension Stone Quarry Supervisor Name Role Phone Cuba Solano MD Primary Care Provider [phone] [phone] Encounter Details Date Type Department Care Team (Latest Contact Info) Description 04/07/2001 Outpatient Historical [facility] Family Medicine [place] [address] [address] Donte Borrego MD NO ADDRESS ON FILE HYPERTENSION NOS (Primary Dx); AFTERCARE CRITICAL CARE NURSE USE MEDICATN; ANEMIA NOS; VACCINE FOR INFLUENZA Social History Tobacco Use Types Packs/Day Years Used Date Smoking Tobacco: Never Assessed Sex and Gender Information Value Date Recorded Sex Assigned at Not on file Legal Sex Male 2:49 AM SUPERINTENDENT SYSTEM OPERATION Gender Identity Not on file Sexual Orientation Not on file documented as of this encounter Plan of Treatment Not on file documented as of this encounter Visit Diagnoses Diagnosis Unspecified essential hypertension- Primary Encounter for long-term (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 of other medications Anemia, unspecified Need vaccination-viral disease Need for prophylactic vaccination and inoculation against other viral diseases documented in this encounter Care Teams Dimension Stone Quarry Supervisor Relationship Specialty Start Date End Date Cuba Solano MD PCP - General 07/11/09 documented as of this encounter
--- OUTSIDE RECORDS SUMMARY | 2025-04-06 05:13 | XMS_ITS | Encounter Summary ---
Author Organization [facility] Address [address] [place] [address] Care Team Providers Care Photographic Reproduction Technician Name Role Phone Cuba Solano MD Primary Care Provider [phone] [phone] Encounter Details Date Type Department Care Team (Latest Contact Info) Description 07/11/2001 Outpatient Historical [facility] Family Medicine [place] [id number] [address] Donte Borrego MD NO ADDRESS ON FILE Benign hypertension (Primary Dx); OSTEOARTHROS NOS-UNSPEC Social History Tobacco Use Types Packs/Day Years Used Date Smoking Tobacco: Never Assessed Sex and Gender Information Value Date Recorded Sex Assigned at Not on file Legal Sex Male 2:49 AM BEADER TENDER Gender Identity Not on file Sexual Orientation Not on file documented as of this encounter Plan of Treatment Not on file documented as of this encounter Visit Diagnoses Diagnosis Benign hypertension- Primary Essential hypertension, benign Osteoarthrosis, unspecified whether generalized or localized, unspecified site documented in this encounter Care Teams Photographic Reproduction Technician Relationship Specialty Start Date End Date Cuba Solano MD PCP - General 07/11/09 documented as of this encounter
--- OUTSIDE RECORDS SUMMARY | 2025-04-06 05:13 | XMS_ITS | Encounter Summary ---
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
--- OUTSIDE RECORDS SUMMARY | 2025-04-06 05:13 | XMS_ITS | Encounter Summary ---
Author Organization [facility] Address [address] [place] [address] Care Team Providers Care Casket Assembler Name Role Phone Cuba Solano MD Primary Care Provider [phone] [phone] Encounter Details Date Type Department Care Team (Latest Contact Info) Description 05/30/2001 Outpatient Historical [facility] Family Medicine [place] [address] [address] Donte Borrego MD NO ADDRESS ON FILE HYPERTENSION NOS (Primary Dx); ACUTE SINUSITIS NOS; KERATODERMA, ACQUIRED; HYPERLIPIDEMIA NEC/NOS Social History Tobacco Use Types Packs/Day Years Used Date Smoking Tobacco: Never Assessed Sex and Gender Information Value Date Recorded Sex Assigned at Not on file Legal Sex Male 2:49 AM DEVELOPMENT TECHNICIAN Gender Identity Not on file Sexual Orientation Not on file documented as of this encounter Plan of Treatment Not on file documented as of this encounter Visit Diagnoses Diagnosis Unspecified essential hypertension- Primary Acute sinusitis, unspecified Acquired keratoderma Other and unspecified hyperlipidemia documented in this encounter Care Teams Casket Assembler Relationship Specialty Start Date End Date Cuba Solano MD PCP - General 07/11/09 documented as of this encounter
--- OUTSIDE RECORDS SUMMARY | 2025-04-06 05:14 | XMS_ITS | Encounter Summary ---
Author Organization [facility] Address [address] [place] [address] Care Team Providers Care Sales Route Driver Helper Name Role Phone Cuba Solano MD Primary Care Provider +1 [phone] Encounter Details Date Type Department Care Team (Latest Contact Info) Description 11/18/2001 Outpatient Historical [facility] Family Medicine [place] [address] [address] Donte Borrego MD NO ADDRESS ON FILE CONJUNCTIVITIS NOS (Primary Dx) Social History Tobacco Use Types Packs/Day Years Used Date Smoking Tobacco: Never Assessed Sex and Gender Information Value Date Recorded Sex Assigned at Not on file Legal Sex Male 2:49 AM RAIL OPERATOR Gender Identity Not on file Sexual Orientation Not on file documented as of this encounter Plan of Treatment Not on file documented as of this encounter Visit Diagnoses Diagnosis Conjunctivitis unspecified- Primary Conjunctivitis, unspecified documented in this encounter Care Teams Sales Route Driver Helper Relationship Specialty Start Date End Date Cuba Solano MD PCP - General 07/11/09 documented as of this encounter
--- OUTSIDE RECORDS SUMMARY | 2025-04-06 05:14 | XMS_ITS | Encounter Summary ---
Author Organization [facility] Address [address] [place] [address] Care Team Providers Care Health Plan Manager Name Role Phone Cuba Solano MD Primary Care Provider +1 [phone] Encounter Details Date Type Department Care Team (Late st Contact Info) Description 03/01/2008 Outpatient Historical [facility] [address] [place] [address] Kvng Kilpatrick MD NO ADDRESS ON FILE Social History Tobacco Use Types Packs/Day Years Used Date Smoking Tobacco: Never Assessed Cigarettes Smokeless Tobacco: Current Chew Alcohol Use Standard Drinks/Week Comments No 0 (1 standard drink = 0.6 oz pur e alcohol) Sex and Gender Information Value Date Recorded Sex Assigned at Not on file 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
--- OUTSIDE RECORDS SUMMARY | 2025-04-06 05:14 | XMS_ITS | Encounter Summary ---
Author Organization [facility] Address [address] [place] [address] Care Team Providers Care Career Guidance Technician Name Role Phone Cuba Solano MD Primary Care Provider +1 [phone] Encounter Details Date Type Department Care Team (Latest Contact Info) Description 05/04/2002 Outpatient Historical [facility] Family Medicine [place] [address] [address] Donte Borrego MD NO ADDRESS ON FILE OTALGIA NOS (Primary Dx) Social History Tobacco Use Types Packs/Day Years Used Date Smoking Tobacco: Never Assessed Sex and Gender Information Value Date Recorded Sex Assigned at Not on file 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
--- OUTSIDE RECORDS SUMMARY | 2025-04-06 05:14 | XMS_ITS | Encounter Summary ---
Author Organization [facility] Address [address] [place] [address] Care Team Providers Care Financial Director Name Role Phone Cuba Solano MD Primary Care Provider +1 [phone] Encounter Details Date Type Department Care Team (Late st Contact Info) Description 02/24/2008 Outpatient Historical [facility] DEFAULT DEPART[facility] Kvng Kilpatrick MD NO ADDRESS ON FILE Social History Tobacco Use Types Packs/Day Years Used Date Smoking Tobacco: Never Assessed Cigarettes Smokeless Tobacco: Current Chew Alcohol Use Standard Drinks/Week Comments No 0 (1 standard drink = 0.6 oz pur e alcohol) Sex and Gender Information Value Date Recorded Sex Assigned at Not on file Legal Sex Male 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
--- OUTSIDE RECORDS SUMMARY | 2025-04-06 05:14 | XMS_ITS | Encounter Summary ---
Author Organization [facility] Address [address] [place] [address] Care Team Providers Care Hardener Helper Name Role Phone Cuba Solano MD Primary Care Provider +1 [phone] Encounter Details Date Type Department Care Team (Latest Contact Info) Description 11/14/2001 Outpatient [facility] Family Medicine [place] [id number] [address] [address] Keyona Mccloud, LUCIEN NO ADDRESS ON FILE HORDEOLUM EXTERNUM (Primary Dx); ACUTE URI NOS Social History Tobacco Use Types Packs/Day Years Used Date Smoking Tobacco: Never Assessed Sex and Gender Information Value Date Recorded Sex Assigned at Not on file Legal 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
--- OUTSIDE RECORDS SUMMARY | 2025-04-06 05:14 | XMS_ITS | Encounter Summary ---
Author Organization [facility] Address [address] [place] [address] Care Team Providers Care Electrostatic Powder Coating Technician Name Role Phone Cuba Solano MD Primary Care Provider +1 [phone] Encounter Details Date Type Department Care Team (Latest Contact Info) Description 07/17/2003 Outpatient Historical [facility] Family Medicine [place] [address] [address] Donte Borrego MD NO ADDRESS ON FILE DERMATITIS NOS (Primary Dx); ALLERGY, UNSPECIFIED Social History Tobacco Use Types Packs/Day Years Used Date Smoking Tobacco: Never Assessed Sex and Gender Information Value Date Recorded Sex Assigned at Not on file Legal Sex Male 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
--- OUTSIDE RECORDS SUMMARY | 2025-04-06 05:14 | XMS_ITS | Encounter Summary ---
Author Organization [facility] Address [address] [place] [address] Care Team Providers Care Home Visits Nurse Name Role Phone Cuba Solano MD Primary Care Provider +1 [phone] Encounter Details Date Type Department Care Team (Latest Contact Info) Description 01/04/2002 Outpatient [facility] Family Medicine [place] [address] [address] Donte Borrego MD NO ADDRESS ON FILE ACUTE PHARYNGITIS (Primary Dx); ALLERGIC RHINITIS NEC Social History Tobacco Use Types Packs/Day Years Used Date Smoking Tobacco: Never Assessed Sex and Gender Information Value Date Recorded Sex Assigned at Not on file 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
--- OUTSIDE RECORDS SUMMARY | 2025-04-06 05:14 | XMS_ITS | Encounter Summary ---
Author Organization [facility] Address [address] [place] [address] Care Team Providers Care Benefits Specialist Recruiter Name Role Phone Cuba Solano MD Primary Care Provider +1 [phone] Encounter Details Date Type Department Care Team (Latest Contact Info) Description 04/10/2002 Outpatient Historical [facility] Family Medicine [place] [address] [address] Donte Borrego MD NO ADDRESS ON FILE HYPERLIPIDEMIA NEC/NOS (Primary Dx) Social History Tobacco Use Types Packs/Day Years Used Date Smoking Tobacco: Never Assessed Sex and Gender Information Value Date Recorded Sex Assigned at Not on file Legal Sex Male 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
--- OUTSIDE RECORDS SUMMARY | 2025-04-06 05:14 | XMS_ITS | Encounter Summary ---
Author Organization [facility] Address [address] [place] [address] Care Team Providers Care Embalmer/Funeral Director Name Role Phone Cuba Solano MD Primary Care Provider +1 [phone] Encounter Details Date Type Department Care Team (Latest Contact Info) Description 04/13/2002 Outpatient Historical [facility] Family Medicine [place] [address] [address] Donte Borrego MD NO ADDRESS ON FILE ACUTE URI NOS (Primary Dx) Social History Tobacco Use Types Packs/Day Years Used Date Smoking Tobacco: Never Assessed Sex and Gender Information Value Date Recorded Sex Assigned at Not on file Legal 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
--- OUTSIDE RECORDS SUMMARY | 2025-04-06 05:14 | XMS_ITS | Encounter Summary ---
Author Organization [facility] Address [address] [place] [address] Care Team Providers Care Tai Chi Instructor Name Role Phone Cuba Solano MD Primary Care Provider +1 [phone] Encounter Details Date Type Department Care Team (Latest Contact Info) Description 10/04/2000 Outpatient Historical [facility] Family Medicine [place] [address] [address] Donte Borrego MD NO ADDRESS ON FILE Other and unspecified hyperlipidemia (Primary Dx); Unspecified essential hypertension; Allergy, unspecified not elsewhere classified; Actinic keratosis Social History Tobacco Use Types Packs/Day Years Used Date Smoking Tobacco: Never Assessed Sex and Gender Information Value Date Recorded Sex Assigned at Not on file Legal Sex Male 2:49 AM MENTAL HEALTH ORDERLY Gender Identity Not on file Sexual Orientation Not on file documented as of this encounter Plan of Treatment Not on file documented as of this encounter Visit Diagnoses Diagnosis Other and unspecified hyperlipidemia- Primary Unspecified essential hypertension Allergy, unspecified not elsewhere classified Actinic keratosis documented in this encounter Care Teams Tai Chi Instructor Relationship Specialty Start Date End Date Cuba Solano MD PCP - General 07/11/09 documented as of this encounter
--- OUTSIDE RECORDS SUMMARY | 2025-04-06 05:14 | XMS_ITS | Encounter Summary ---
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
--- OUTSIDE RECORDS SUMMARY | 2025-04-06 05:14 | XMS_ITS | Encounter Summary ---
Author Organization [facility] Address [address] [place] [address] Care Team Providers Care Hand Splitter Name Role Phone Cuba Solano MD Primary Care Provider +1 -[phone] Encounter Details Date Type Department Care Team (Latest Contact Info) Description 01/18/2002 Outpatient Historical [facility] Family Medicine [place] [address] [address] Donte Borrego MD NO ADDRESS ON FILE DISEASES OF LIPS (Primary Dx); ALLERGY, UNSPECIFIED Social History Tobacco Use Types Packs/Day Years Used Date Smoking Tobacco: Never Assessed Sex and Gender Information Value Date Recorded Sex Assigned at Not on file Legal 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
--- OUTSIDE RECORDS SUMMARY | 2025-04-06 05:14 | XMS_ITS | Encounter Summary ---
Author Organization [facility] Address [address] [place] [address] Care Team Providers Care Pedicurist Name Role Phone Cuba Solano MD Primary Care Provider +1 [phone] Encounter Details Date Type Department Care Team (Latest Contact Info) Description 10/03/2001 Outpatient Historical [facility] Family Medicine [place] [id number] [address] Donte Borrego MD NO ADDRESS ON FILE HYPERTENSION NOS (Primary Dx); ALLERGY, UNSPECIFIED; AMPUT ABOVE KNEE, UNILAT; OSTEOARTHROS NOS-UNSPEC Social History Tobacco Use Types Packs/Day Years Used Date Smoking Tobacco: Never Assessed Sex and Gender Information Value Date Recorded Sex Assigned at Not on file Legal Sex Male 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
--- OUTSIDE RECORDS SUMMARY | 2025-04-06 05:14 | XMS_ITS | Encounter Summary ---
Author Organization [facility] Address [address] [place] [address] Care Team Providers Care Crude Oil Treater Name Role Phone Cuba Solano MD Primary Care Provider +1 [phone] Encounter Details Date Type Department Care Team (Late st Contact Info) Description 03/02/2008 Outpatient Historical [facility] [address] [place] [address] Kvng Kilpatrick MD NO ADDRESS ON FILE Social History Tobacco Use Types Packs/Day Years Used Date Smoking Tobacco: Never Assessed Cigarettes Smokeless Tobacco: Current Chew Alcohol Use Standard Drinks/Week Comments No 0 (1 standard drink = 0.6 oz pur e alcohol) Sex and Gender Information Value Date Recorded Sex Assigned at Not on file Legal Sex Male 2:49 AM DETASSELER Gender Identity Not on file Sexual Orientation Not on file documented as of this encounter Plan of Treatment Not on file documented as of this encounter Visit Diagnoses Not on filedocumented in this encounter Care Teams Crude Oil Treater Relationship Specialty Start Date End Date Cuba Solano MD PCP - General 07/11/09 documented as of this encounter
--- OUTSIDE RECORDS SUMMARY | 2025-04-06 05:14 | XMS_ITS | Encounter Summary ---
Author Organization [facility] Address [address] [place] [address] Care Team Providers Care Operational Meteorologist Name Role Phone Cuba Solano MD Primary Care Provider +1 [phone] Encounter Details Date Type Department Care Team (Latest Contact Info) Description 11/07/2001 Outpatient [facility] Family Medicine [place] [address] [address] Keyona Mccloud, LUCIEN NO ADDRESS ON FILE HORDEOLUM EXTERNUM (Primary Dx); ALLERGY, UNSPECIFIED Social History Tobacco Use Types Packs/Day Years Used Date Smoking Tobacco: Never Assessed Sex and Gender Information Value Date Recorded Sex Assigned at Not on file Legal Sex Male 2:49 AM SUPERVISOR IN CHARGE Gender Identity Not on file Sexual Orientation Not on file documented as of this encounter Plan of Treatment Not on file documented as of this encounter Visit Diagnoses Diagnosis Hordeolum externum- Primary Allergy, unspecified not elsewhere classified documented in this encounter Care Teams Operational Meteorologist Relationship Specialty Start Date End Date Cuba Solano MD PCP - General 07/11/09 documented as of this encounter
--- OUTSIDE RECORDS SUMMARY | 2025-04-06 05:14 | XMS_ITS | Encounter Summary ---
Author Organization [facility] Address [address] [place] [address] Care Team Providers Care Gravel Screener Name Role Phone Cuba Solano MD Primary Care Provider +1 -[phone] Encounter Details Date Type Department Care Team (Latest Contact Info) Description 11/01/2001 Outpatient Historical [facility] Family Medicine [place] [address] [address] Donte Borrego MD NO ADDRESS ON FILE ACUTE SINUSITIS NOS (Primary Dx); ALLERGIC RHINITIS NEC; Benign hypertension Social History Tobacco Use Types Packs/Day Years Used Date Smoking Tobacco: Never Assessed Sex and Gender Information Value Date Recorded Sex Assigned at Not on file 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
--- OUTSIDE RECORDS SUMMARY | 2025-04-06 05:14 | XMS_ITS | Encounter Summary ---
Author Organization [facility] Address [address] [place] [address] Care Team Providers Care Electrical Products Engineer Name Role Phone Cuba Solano MD Primary Care Provider +1 [phone] Encounter Details Date Type Department Care Team (Latest Contact Info) Description 04/07/2000 Outpatient Historical [facility] Family Medicine [place] [address] [address] Donte Borrego MD NO ADDRESS ON FILE Unspecified essential hypertension (Primary Dx); Unspecified suppurative otitis media; Nasal/sinus dis NEC Social History Tobacco Use Types Packs/Day Years Used Date Smoking Tobacco: Never Assessed Sex and Gender Information Value Date Recorded Sex Assigned at Not on file Legal 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
--- OUTSIDE RECORDS SUMMARY | 2025-04-06 05:14 | XMS_ITS | Encounter Summary ---
Author Organization [facility] Address [address] [place] [address] Care Team Providers Care Steel Wheel Engraver Name Role Phone Cuba Solano MD Primary Care Provider +1 -[phone] Encounter Details Date Type Department Care Team (Latest Contact Info) Description 02/01/2002 Outpatient Historical [facility] Family Medicine [place] [address] [address] Donte Borrego MD NO ADDRESS ON FILE HYPERTENSION NOS (Primary Dx); LIPOMA NOS; DISEASES OF LIPS Social History Tobacco Use Types Packs/Day Years Used Date Smoking Tobacco: Never Assessed Sex and Gender Information Value Date Recorded Sex Assigned at Not on file Legal Sex Male 2:49 AM CALL WORKER PERSON Gender Identity Not on file Sexual Orientation Not on file documented as of this encounter Plan of Treatment Not on file documented as of this encounter Visit Diagnoses Diagnosis Unspecified essential hypertension- Primary Lipoma of unspecified site Diseases of lips documented in this encounter Care Teams Steel Wheel Engraver Relationship Specialty Start Date End Date Cuba Solano MD PCP - General 07/11/09 documented as of this encounter
--- OUTSIDE RECORDS SUMMARY | 2025-04-06 05:14 | XMS_ITS | Encounter Summary ---
Author Organization [facility] Address [address] [place] [address] Care Team Providers Care Marquetry Worker Name Role Phone Cuba Solano MD Primary Care Provider +1 -[phone] Encounter Details Date Type Department Care Team (Latest Contact Info) Description 08/29/2001 Outpatient Historical [facility] Family Medicine [place] 9[address] [address] Donte Borrego MD NO ADDRESS ON FILE Benign hypertension (Primary Dx); TACHYCARDIA NOS Social History Tobacco Use Types Packs/Day Years Used Date Smoking Tobacco: Never Assessed Sex and Gender Information Value Date Recorded Sex Assigned at Not on file Legal Sex Male 2:49 AM EDI COORDINATOR Gender Identity Not on file Sexual Orientation Not on file documented as of this encounter Plan of Treatment Not on file documented as of this encounter Visit Diagnoses Diagnosis Benign hypertension- Primary Essential hypertension, benign Tachycardia, unspecified documented in this encounter Care Teams Marquetry Worker Relationship Specialty Start Date End Date Cuba Solano MD PCP - General 07/11/09 documented as of this encounter
--- OUTSIDE RECORDS SUMMARY | 2025-04-06 05:14 | XMS_ITS | Encounter Summary ---
Author Organization [facility] Address [address] [place] [address] Care Team Providers Care Surgical Dressing Maker Name Role Phone Cuba Solano MD Primary Care Provider +1 [phone] Encounter Details Date Type Department Care Team (Latest Contact Info) Description 07/02/[address] [facility] Family Medicine [place] [address] [address] Keyona Mccloud, AUTOMOTIVE SALES MANAGER NO ADDRESS ON FILE ALLERGY, UNSPECIFIED (Primary Dx) Social History Tobacco Use Types Packs/Day Years Used Date Smoking Tobacco: Never Assessed Sex and Gender Information Value Date Recorded Sex Assigned at Not on file Legal Sex Male 2:49 AM PACU RN Gender Identity Not on file Sexual Orientation Not on file documented as of this encounter Plan of Treatment Not on file documented as of this encounter Visit Diagnoses Diagnosis Allergy, unspecified not elsewhere classified- Primary documented in this encounter Care Teams Surgical Dressing Maker Relationship Specialty Start Date End Date Cuba Solano MD PCP - General 07/11/09 documented as of this encounter
--- OUTSIDE RECORDS SUMMARY | 2025-04-06 05:14 | XMS_ITS | Encounter Summary ---
Author Organization [facility] Address [address] [place] [address] Care Team Providers Care Framing And Hanging Name Role Phone Cuba Solano MD Primary Care Provider +1 [phone] Encounter Details Date Type Department Care Team (Latest Contact Info) Description 02/09/2000 Outpatient Historical [facility] Family Medicine Angelica [place] [id number] [address] Donte Borrego MD NO ADDRESS ON FILE Unspecified suppurative otitis media (Primary Dx); Acute upper respiratory infections of unspecified site Social History Tobacco Use Types Packs/Day Years Used Date Smoking Tobacco: Never Assessed Sex and Gender Information Value Date Recorded Sex Assigned at Not on file Legal Sex Male 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
--- OUTSIDE RECORDS SUMMARY | 2025-04-06 05:14 | XMS_ITS | Encounter Summary ---
Author Organization [facility] Address [address] [place] [address] Care Team Providers Care Car Wiper Name Role Phone Cuba Solano MD Primary Care Provider +1 [phone] Encounter Details Date Type Department Care Team (Latest Contact Info) Description 09/06/2000 Outpatient Historical [facility] [place] [address] [place] [address] Other convulsions (Primary Dx) Social History Tobacco Use Types Packs/Day Years Used Date Smoking Tobacco: Never Assessed Sex and Gender Information Value Date Recorded Sex Assigned at Not on file Legal Sex Male 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
--- OUTSIDE RECORDS SUMMARY | 2025-04-06 05:14 | XMS_ITS | Encounter Summary ---
Author Organization [facility] Address [address] [place] [address] Care Team Providers Care Industrial Spraypainter Name Role Phone Cuba Solano MD Primary Care Provider +1 [phone] Encounter Details Date Type Department Care Team (Latest Contact Info) Description 01/25/2002 Outpatient Historical [facility] Family Medicine Angelica [place] [id number] [address] Donte Borrego MD NO ADDRESS ON FILE OTHER MALAISE AND FATIGUE (Primary Dx) Social History Tobacco Use Types Packs/Day Years Used Date Smoking Tobacco: Never Assessed Sex and Gender Information Value Date Recorded Sex Assigned at Not on file Legal Sex Male 2:49 AM INTERN RETAIL Gender Identity Not on file Sexual Orientation Not on file documented as of this encounter Plan of Treatment Not on file documented as of this encounter Visit Diagnoses Diagnosis Other malaise and fatigue- Primary documented in this encounter Care Teams Industrial Spraypainter Relationship Specialty Start Date End Date Cuba Solano MD PCP - General 07/11/09 documented as of this encounter
--- OUTSIDE RECORDS SUMMARY | 2025-04-06 05:14 | XMS_ITS | Encounter Summary ---
Author Organization [facility] Address [address] [place] [address] Care Team Providers Care Administrative Medical Director Name Role Phone Cuba Solano MD Primary Care Provider +1 [phone] Encounter Details Date Type Department Care Team (Late st Contact Info) Description 09/06/2000 Outpatient Historical [facility] [place] [address] [place] [address] Encounter for long-term (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 of other medications (Primary Dx); Other convulsions Social History Tobacco Use Types Packs/Day Years Used Date Smoking Tobacco: Never Assessed Sex and Gender Information Value Date Recorded Sex Assigned at Not on file Legal Sex Male 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
--- OUTSIDE RECORDS SUMMARY | 2025-04-06 05:14 | XMS_ITS | Encounter Summary ---
Author Organization [facility] Address [address] [place] [address] Care Team Providers Care Hide Buffer Name Role Phone Cuba Solano MD Primary Care Provider +1 [phone] Encounter Details Date Type Department Care Team (Late st Contact Info) Description 03/19/2008 Outpatient Historical [facility] Keyona Mccloud, STATISTICAL PROGRAMMER NO ADDRESS ON FILE Social History Tobacco Use Types Packs/Day Years Used Date Smoking Tobacco: Never Assessed Cigarettes Smokeless Tobacco: Current Chew Alcohol Use Standard Drinks/Week Comments No 0 (1 standard drink = 0.6 oz pur e alcohol) Sex and Gender Information Value Date Recorded Sex Assigned at Not on file Legal Sex Male 2:49 AM SIZER HAND Gender Identity Not on file Sexual Orientation Not on file documented as of this encounter Plan of Treatment Not on file documented as of this encounter Visit Diagnoses Not on filedocumented in this encounter Care Teams Hide Buffer Relationship Specialty Start Date End Date Cuba Solano MD PCP - General 07/11/09 documented as of this encounter
--- OUTSIDE RECORDS SUMMARY | 2025-04-06 05:14 | XMS_ITS | Encounter Summary ---
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
--- OUTSIDE RECORDS SUMMARY | 2025-04-06 05:14 | XMS_ITS | Encounter Summary ---
Author Organization 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
--- OUTSIDE RECORDS SUMMARY | 2025-04-06 05:14 | XMS_ITS | Encounter Summary ---
Author Organization [facility] Address [address] [place] [address] Care Team Providers Care Woodenware Assembler Name Role Phone Cuba Solano MD Primary Care Provider +1 [phone] Encounter Details Date Type Department Care Team (Latest Contact Info) Description 04/10/2002 Outpatient [facility] Family Medicine Angelica [address] [address] Donte Borrego MD NO ADDRESS ON FILE B-COMPLEX DEFIC NEC (Primary Dx); OTHER MALAISE AND FATIGUE; HYPERLIPIDEMIA NEC/NOS Social History Tobacco Use Types Packs/Day Years Used Date Smoking Tobacco: Never Assessed Sex and Gender Information Value Date Recorded Sex Assigned at Not on file Legal Sex Male 2:49 AM CAPTURE MANAGER Gender Identity Not on file Sexual Orientation Not on file documented as of this encounter Plan of Treatment Not on file documented as of this encounter Visit Diagnoses Diagnosis Other B-complex deficiencies- Primary Other malaise and fatigue Other and unspecified hyperlipidemia documented in this encounter Care Teams Woodenware Assembler Relationship Specialty Start Date End Date Cuba Solano MD PCP - General 07/11/09 documented as of this encounter
--- OUTSIDE RECORDS SUMMARY | 2025-04-06 05:14 | XMS_ITS | Encounter Summary ---
Author Organization [facility] Address [address] [facility] Attn: [place] [address] Care Team Providers Care Engineer Internship Name Role Phone Cuba Solano MD Primary Care Provider +1 [phone] Encounter Details Date Type Department Care Team (Late st Contact Info) Description 01/19/2002 Outpatient Historical Donte Borrego MD NO ADDRESS ON FILE Social History Tobacco Use Types Packs/Day Years Used Date Smoking Tobacco: Never Assessed Sex and Gender Information Value Date Recorded Sex Assigned at Not on file Legal Sex Male 2:49 AM ENGINEERING PRODUCTION LIAISON Gender Identity Not on file Sexual Orientation Not on file documented as of this encounter Plan of Treatment Not on file documented as of this encounter Visit Diagnoses Not on filedocumented in this encounter Care Teams Engineer Internship Relationship Specialty Start Date End Date Cuba Solano MD PCP - General 07/11/09 documented as of this encounter
--- OUTSIDE RECORDS SUMMARY | 2025-04-06 05:14 | XMS_ITS | Encounter Summary ---
Author Organization [facility] Address [address] [facility] Attn: [place] [address] Care Team Providers Care Belt Puncher Name Role Phone Cuba Solano MD Primary Care Provider +1 [phone] Encounter Details Date Type Department Care Team (Late st Contact Info) Description 11/22/2000 Outpatient Historical Donte Borrego MD NO ADDRESS ON FILE Social History Tobacco Use Types Packs/Day Years Used Date Smoking Tobacco: Never Assessed Sex and Gender Information Value Date Recorded Sex Assigned at Not on file Legal Sex Male 2:49 AM APPLICATIONS PROJECT MANAGER Gender Identity Not on file Sexual Orientation Not on file documented as of this encounter Plan of Treatment Not on file documented as of this encounter Visit Diagnoses Not on filedocumented in this encounter Care Teams Belt Puncher Relationship Specialty Start Date End Date Cuba Solano MD PCP - General 07/11/09 documented as of this encounter
--- OUTSIDE RECORDS SUMMARY | 2025-04-06 05:14 | XMS_ITS | Encounter Summary ---
Author Organization [facility] Address [address] [place] [address] Care Team Providers Care Shorthand Teacher Name Role Phone Cuba Solano MD Primary Care Provider +1 [phone] Encounter Details Date Type Department Care Team (Latest Contact Info) Description 11/30/2001 Outpatient Historical [facility] Family Medicine Angelica [address] [address] Donte Borrego MD NO ADDRESS ON FILE ACUTE CONJUNCTIVITIS NOS (Primary Dx); HERPES ZOSTER NOS Social History Tobacco Use Types Packs/Day Years Used Date Smoking Tobacco: Never Assessed Sex and Gender Information Value Date Recorded Sex Assigned at Not on file Legal Sex Male 2:49 AM PROPERTY MANAGEMENT SPECIALIST Gender Identity Not on file Sexual Orientation Not on file documented as of this encounter Plan of Treatment Not on file documented as of this encounter Visit Diagnoses Diagnosis Acute conjunctivitis, unspecified- Primary Herpes zoster 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 documented in this encounter Care Teams Shorthand Teacher Relationship Specialty Start Date End Date Cuba Solano MD PCP - General 07/11/09 documented as of this encounter
--- OUTSIDE RECORDS SUMMARY | 2025-04-06 05:14 | XMS_ITS | Encounter Summary ---
Author Organization [facility] Address [address] [place] [address] Care Team Providers Care Routing Clerk Name Role Phone Cuba Solano MD Primary Care Provider +1 [phone] Encounter Details Date Type Department Care Team (Latest Contact Info) Description 07/07/2000 Outpatient Historical [facility] Family Medicine [place] [id number] [address] Donte Borrego MD NO ADDRESS ON FILE Unspecified essential hypertension (Primary Dx); Obesity, unspecified; Allergy, unspecified not elsewhere classified; Actinic keratosis Social History Tobacco Use Types Packs/Day Years Used Date Smoking Tobacco: Never Assessed Sex and Gender Information Value Date Recorded Sex Assigned at Not on file Legal Sex Male 2: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
--- OUTSIDE RECORDS SUMMARY | 2025-04-06 05:14 | XMS_ITS | Encounter Summary ---
Author Organization [facility] Address [address] [place] [address] Care Team Providers Care Jewel Flat Surfacer Name Role Phone Cuba Solano MD Primary Care Provider +1 [phone] Encounter Details Date Type Department Care Team (Latest Contact Info) Description 09/15/2000 Outpatient Historical [facility] Family Medicine [place] [address] [address] Donte Borrego MD NO ADDRESS ON FILE Unspecified essential hypertension (Primary Dx); Type II or unspecified type diabetes mellitus 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, not stated as uncontrolled Social History Tobacco Use Types Packs/Day Years Used Date Smoking Tobacco: Never Assessed Sex and Gender Information Value Date Recorded Sex Assigned at Not on file Legal Sex Male 2: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
--- OUTSIDE RECORDS SUMMARY | 2025-04-06 05:14 | XMS_ITS | Encounter Summary ---
Author Organization [facility] Address [address] [place] [address] Care Team Providers Care Maitre D Name Role Phone Cuba Solano MD Primary Care Provider +1 [phone] Encounter Details Date Type Department Care Team (Latest Contact Info) Description 08/22/2001 Outpatient Historical [facility] Family Medicine [place] [id number] [address] Donte Borrego MD NO ADDRESS ON FILE HYPERTENSION NOS (Primary Dx); TACHYCARDIA NOS Social History Tobacco Use Types Packs/Day Years Used Date Smoking Tobacco: Never Assessed Sex and Gender Information Value Date Recorded Sex Assigned at Not on file Legal Sex Male 2:49 AM SENIOR 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
--- OUTSIDE RECORDS SUMMARY | 2025-04-06 05:14 | XMS_ITS | Encounter Summary ---
Author Organization [facility] Address [address] [place] [address] Care Team Providers Care Small Wind Energy Installer Name Role Phone Cuba Solaon MD Primary Care Provider +1 [phone] Encounter Details Date Type Department Care Team (Latest Contact Info) Description 03/03/2002 Outpatient [facility] Family Medicine [place] [address] [address] Donte Borrego MD NO ADDRESS ON FILE OTHER MALAISE AND FATIGUE (Primary Dx); B-COMPLEX DEFIC NEC Social History Tobacco Use Types Packs/Day Years Used Date Smoking Tobacco: Never Assessed Sex and Gender Information Value Date Recorded Sex Assigned at Not on file Legal Sex Male 2:49 AM PUBLIC ACCOUNTANT Gender Identity Not on file Sexual Orientation Not on file documented as of this encounter Plan of Treatment Not on file documented as of this encounter Visit Diagnoses Diagnosis Other malaise and fatigue- Primary Other B-complex deficiencies documented in this encounter Care Teams Small Wind Energy Installer Relationship Specialty Start Date End Date Cuba Solano MD PCP - General 07/11/09 documented as of this encounter
--- OUTSIDE RECORDS SUMMARY | 2025-04-06 05:14 | XMS_ITS | Encounter Summary ---
Author Organization [facility] Address [address] [place] [address] Care Team Providers Care Video Software Engineer Name Role Phone Cuba Solano MD Primary Care Provider +1 -[phone] Encounter Details Date Type Department Care Team (Latest Contact Info) Description 09/14/2001 Outpatient Historical [facility] Family Medicine [place] [address] [address] Donte Borrego MD NO ADDRESS ON FILE UNSPECIFIED VIRAL INFECTION (Primary Dx); ALLERGY, UNSPECIFIED; HYPERTENSION NOS; TACHYCARDIA NOS Social History Tobacco Use Types Packs/Day Years Used Date Smoking Tobacco: Never Assessed Sex and Gender Information Value Date Recorded Sex Assigned at Not on file Legal Sex Male 2:49 AM SENIOR TALENT ACQUISITION SPECIALIST Gender Identity Not on file Sexual Orientation Not on file documented as of this encounter Plan of Treatment Not on file documented as of this encounter Visit Diagnoses Diagnosis Unspecified viral infection, in conditions classified elsewhere and of unspecified site- Primary Allergy, unspecified not elsewhere classified Unspecified essential hypertension Tachycardia, unspecified documented in this encounter Care Teams Video Software Engineer Relationship Specialty Start Date End Date Cuba Solano MD PCP - General 07/11/09 documented as of this encounter
--- OUTSIDE RECORDS SUMMARY | 2025-04-06 05:15 | XMS_ITS | Encounter Summary ---
Author Organization [facility] Address [address] [place] [address] Care Team Providers Care Physical Therapy Attendant Name Role Phone Cuba Solano MD Primary Care Provider +1 [phone] Encounter Details Date Type Department Care Team (Latest Contact Info) Description 05/04/2003 Outpatient Historical [facility] Family Medicine [place] [id number] [address] Keyona Mccloud, LUCIEN NO ADDRESS ON FILE ACUTE URI NOS (Primary Dx); PERNICIOUS ANEMIA Social History Tobacco Use Types Packs/Day Years Used Date Smoking Tobacco: Never Assessed Sex and Gender Information Value Date Recorded Sex Assigned at Not on file Legal Sex Male 2:49 AM CARDIOLOGY CLINICAL NURSE SPECIALIST Gender Identity Not on file Sexual Orientation Not on file documented as of this encounter Plan of Treatment Not on file documented as of this encounter Visit Diagnoses Diagnosis Acute upper respiratory infections of unspecified site- Primary Pernicious anemia documented in this encounter Care Teams Physical Therapy Attendant Relationship Specialty Start Date End Date Cuba Solano MD PCP - General 07/11/09 documented as of this encounter
--- OUTSIDE RECORDS SUMMARY | 2025-04-06 05:15 | XMS_ITS | Encounter Summary ---
Author Organization [facility] Address [address] [place] [address] Care Team Providers Care Crop Farm Helper Name Role Phone Cuba Solano MD Primary Care Provider +1 -[phone] Encounter Details Date Type Department Care Team (Latest Contact Info) Description 08/03/2002 Outpatient Historical [facility] Family Medicine [place] [address] [address] Donte Borrego MD NO ADDRESS ON FILE OTHER MALAISE AND FATIGUE (Primary Dx) Social History Tobacco Use Types Packs/Day Years Used Date Smoking Tobacco: Never Assessed Sex and Gender Information Value Date Recorded Sex Assigned at Not on file Legal Sex Male 2:49 AM PRESSURE SUPERVISOR Gender Identity Not on file Sexual Orientation Not on file documented as of this encounter Plan of Treatment Not on file documented as of this encounter Visit Diagnoses Diagnosis Other malaise and fatigue- Primary documented in this encounter Care Teams Crop Farm Helper Relationship Specialty Start Date End Date Cuba Solano MD PCP - General 07/11/09 documented as of this encounter
--- OUTSIDE RECORDS SUMMARY | 2025-04-06 05:15 | XMS_ITS | Encounter Summary ---
Author Organization [facility] Address [address] [place] [address] Care Team Providers Care Casino Controller Name Role Phone Cuba Solano MD Primary Care Provider +1 [phone] Encounter Details Date Type Department Care Team (Latest Contact Info) Description 05/04/2002 Outpatient Historical [facility] Family Medicine [place] [address] [address] Donte Borrego MD NO ADDRESS ON FILE Benign hypertension (Primary Dx); OTALGIA NOS; INFEC OTITIS EXTERNA NOS Social History Tobacco Use Types Packs/Day Years Used Date Smoking Tobacco: Never Assessed Sex and Gender Information Value Date Recorded Sex Assigned at Not on file Legal Sex Male 2:49 AM LAWYER Gender Identity Not on file Sexual Orientation Not on file documented as of this encounter Plan of Treatment Not on file documented as of this encounter Visit Diagnoses Diagnosis Benign hypertension- Primary Essential hypertension, benign Otalgia, unspecified Infective otitis externa, unspecified documented in this encounter Care Teams Casino Controller Relationship Specialty Start Date End Date Cuba Solano MD PCP - General 07/11/09 documented as of this encounter
--- OUTSIDE RECORDS SUMMARY | 2025-04-06 05:15 | XMS_ITS | Encounter Summary ---
Author Organization [facility] Address [address] [place] [address] Care Team Providers Care Pharmacy Consultant Name Role Phone Cuba Solano MD Primary Care Provider +1 [phone] Encounter Details Date Type Department Care Team (Latest Contact Info) Description 05/30/2002 Outpatient Historical [facility] Family Medicine [place] [address] [address] Donte Borrego MD NO ADDRESS ON FILE ANEMIA NOS (Primary Dx) Social History Tobacco Use Types Packs/Day Years Used Date Smoking Tobacco: Never Assessed Sex and Gender Information Value Date Recorded Sex Assigned at Not on file Legal Sex Male 2:49 AM PARTS COUNTER REPRESENTATIVE Gender Identity Not on file Sexual Orientation Not on file documented as of this encounter Plan of Treatment Not on file documented as of this encounter Visit Diagnoses Diagnosis Anemia, unspecified- Primary documented in this encounter Care Teams Pharmacy Consultant Relationship Specialty Start Date End Date Cuba Solano MD PCP - General 07/11/09 documented as of this encounter
--- OUTSIDE RECORDS SUMMARY | 2025-04-06 05:15 | XMS_ITS | Encounter Summary ---
Author Organization [facility] Address [address] [place] [address] Care Team Providers Care Lockstitch Zipper Setter Name Role Phone Cuba Solano MD Primary Care Provider +1 [phone] Encounter Details Date Type Department Care Team (Latest Contact Info) Description 09/11/2003 Outpatient [facility] Family Medicine [place] [id number] [address] Keyona Mccloud, LUCIEN NO ADDRESS ON FILE ALLERGY, UNSPECIFIED (Primary Dx); DERMATITIS NOS; HYPERTENSION NOS; HYPERLIPIDEMIA NEC/NOS Social History Tobacco Use Types Packs/Day Years Used Date Smoking Tobacco: Never Assessed Sex and Gender Information Value Date Recorded Sex Assigned at Not on file Legal Sex Male 2:49 AM BUCKLE AND BUTTON MAKER Gender Identity Not on file Sexual Orientation Not on file documented as of this encounter Plan of Treatment Not on file documented as of this encounter Visit Diagnoses Diagnosis Allergy, unspecified not elsewhere classified- Primary Contact dermatitis and other eczema, due to unspecified cause Unspecified essential hypertension Other and unspecified hyperlipidemia documented in this encounter Care Teams Lockstitch Zipper Setter Relationship Specialty Start Date End Date Cuba Solano MD PCP - General 07/11/09 documented as of this encounter
--- OUTSIDE RECORDS SUMMARY | 2025-04-06 05:15 | XMS_ITS | Encounter Summary ---
Author Organization [facility] Address [address] [place] [address] Care Team Providers Care Technical Director Name Role Phone Cuba Solano MD Primary Care Provider +1 [phone] Encounter Details Date Type Department Care Team (Latest Contact Info) Description 05/30/2002 Outpatient Historical [facility] Family Medicine Angel[place] [address] [address] Donte Borrego MD NO ADDRESS ON FILE ANEMIA NOS (Primary Dx) Social History Tobacco Use Types Packs/Day Years Used Date Smoking Tobacco: Never Assessed Sex and Gender Information Value Date Recorded Sex Assigned at Not on file Legal Sex Male 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
--- OUTSIDE RECORDS SUMMARY | 2025-04-06 05:15 | XMS_ITS | Encounter Summary ---
Author Organization [facility] Address [address] [place] [address] Care Team Providers Care Manager Sourcing Name Role Phone Cuba Solano MD Primary Care Provider +1 [phone] Encounter Details Date Type Department Care Team (Latest Contact Info) Description 02/01/2004 Outpatient Historical [facility] Family Medicine [place] [address] [address] Donte Borrego MD NO ADDRESS ON FILE ANEMIA NOS (Primary Dx); AFTERCARE TUBE CUTTER USE MEDICATN; GOUT NOS Social History Tobacco Use Types Packs/Day Years Used Date Smoking Tobacco: Never Assessed Sex and Gender Information Value Date Recorded Sex Assigned at Not on file Legal Sex Male 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
--- OUTSIDE RECORDS SUMMARY | 2025-04-06 05:15 | XMS_ITS | Encounter Summary ---
Author Organization [facility] Address [address] [place] [address] Care Team Providers Care Environmental Engineering Aide Name Role Phone Cuba Solano MD Primary Care Provider +1 [phone] Encounter Details Date Type Department Care Team (Latest Contact Info) Description 11/01/2002 Outpatient Historical [facility] Family Medicine [place] [id number] [address] Donte Borrego MD NO ADDRESS ON FILE OTHER MALAISE AND FATIGUE (Primary Dx) Social History Tobacco Use Types Packs/Day Years Used Date Smoking Tobacco: Never Assessed Sex and Gender Information Value Date Recorded Sex Assigned at Not on file Legal Sex Male 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
--- OUTSIDE RECORDS SUMMARY | 2025-04-06 05:15 | XMS_ITS | Encounter Summary ---
Author Organization [facility] Address [address] [place] [address] Care Team Providers Care Director Motion Picture Name Role Phone Cuba Solano MD Primary Care Provider +1 [phone] Encounter Details Date Type Department Care Team (Latest Contact Info) Description 03/05/2004 Outpatient Historical [facility] Family Medicine [place] [id number] [address] Donte Borrego MD NO ADDRESS ON FILE DIABETES MELLITUS TYPE II UNCONTR UNCOMPL (Primary Dx); ACUTE URI NOS Social History Tobacco Use Types Packs/Day Years Used Date Smoking Tobacco: Never Assessed Sex and Gender Information Value Date Recorded Sex Assigned at Not on file Legal 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
--- OUTSIDE RECORDS SUMMARY | 2025-04-06 05:15 | XMS_ITS | Encounter Summary ---
Author Organization [facility] Address [address] [place] [address] Care Team Providers Care Computer Aide Name Role Phone Cuba Solano MD Primary Care Provider +1 [phone] Encounter Details Date Type Department Care Team (Latest Contact Info) Description 10/23/2003 Outpatient Historical [facility] Family Medicine [place] [address] [address] Donte Borrego MD NO ADDRESS ON FILE TOBACCO USE DISORDER (Primary Dx); ALLERGY, UNSPECIFIED Social History Tobacco Use Types Packs/Day Years Used Date Smoking Tobacco: Never Assessed Sex and Gender Information Value Date Recorded Sex Assigned at Not on file Legal Sex Male 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
--- OUTSIDE RECORDS SUMMARY | 2025-04-06 05:15 | XMS_ITS | Encounter Summary ---
Author Organization [facility] Address [address] [place] [address] Care Team Providers Care Registered Nurse Cardiovascular Icu Name Role Phone Cuba Solano MD Primary Care Provider +1 [phone] Encounter Details Date Type Department Care Team (Latest Contact Info) Description 06/06/2003 Outpatient Historical [facility] Family Medicine [place] [address] [address] Keyona Mccloud, LUCIEN NO ADDRESS ON FILE ACUTE PHARYNGITIS (Primary Dx); ACUTE SINUSITIS NOS Social History Tobacco Use Types Packs/Day Years Used Date Smoking Tobacco: Never Assessed Sex and Gender Information Value Date Recorded Sex Assigned at Not on file Legal Sex Male 2:49 AM CLINIC LICENSED 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
--- OUTSIDE RECORDS SUMMARY | 2025-04-06 05:15 | XMS_ITS | Encounter Summary ---
Author Organization [facility] Address [address] [place] [address] Care Team Providers Care Plate And Frame Filter Operator Name Role Phone Cuba Solano MD Primary Care Provider +1 [phone] Encounter Details Date Type Department Care Team (Latest Contact Info) Description 03/05/2003 Outpatient Historical [facility] Family Medicine [place] [id number] [address] Keyona Mccloud, LUCIEN NO ADDRESS ON FILE OTHER MALAISE AND FATIGUE (Primary Dx) Social History Tobacco Use Types Packs/Day Years Used Date Smoking Tobacco: Never Assessed Sex and Gender Information Value Date Recorded Sex Assigned at Not on file Legal 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
--- OUTSIDE RECORDS SUMMARY | 2025-04-06 05:15 | XMS_ITS | Encounter Summary ---
Author Organization [facility] Address [address] [place] [address] Care Team Providers Care Tool Crib Manager Name Role Phone Cuba Solano MD Primary Care Provider +1 [phone] Encounter Details Date Type Department Care Team (Latest Contact Info) Description 11/02/2003 Outpatient Historical [facility] Family Medicine [place] [address] [address] Donte Borrego MD NO ADDRESS ON FILE ANEMIA NOS (Primary Dx) Social History Tobacco Use Types Packs/Day Years Used Date Smoking Tobacco: Never Assessed Sex and Gender Information Value Date Recorded Sex Assigned at Not on file Legal Sex Male 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
--- OUTSIDE RECORDS SUMMARY | 2025-04-06 05:15 | XMS_ITS | Encounter Summary ---
Author Organization [facility] Address [address] [place] [address] Care Team Providers Care Overhead Foreman Name Role Phone Cuba Solano MD Primary Care Provider +1 [phone] Encounter Details Date Type Department Care Team (Latest Contact Info) Description 10/30/2002 Outpatient Historical [facility] Family Medicine [place] [address] [address] Donte Borrego MD NO ADDRESS ON FILE HYPERLIPIDEMIA NEC/NOS (Primary Dx); HYPERTENSION NOS; ALLERGY, UNSPECIFIED Social History Tobacco Use Types Packs/Day Years Used Date Smoking Tobacco: Never Assessed Sex and Gender Information Value Date Recorded Sex Assigned at Not on file Legal Sex Male 2: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
--- OUTSIDE RECORDS SUMMARY | 2025-04-06 05:15 | XMS_ITS | Encounter Summary ---
Author Organization [facility] Address [address] [place] [address] Care Team Providers Care Copying Machine Mechanic Name Role Phone Cuba Solano MD Primary Care Provider +1 [phone] Encounter Details Date Type Department Care Team (Latest Contact Info) Description 12/25/2003 Outpatient Historical [facility] Family Medicine [place] [address] [address] Donte Borrego MD NO ADDRESS ON FILE EDEMA (Primary Dx); APNEA; POLYP OF NASAL CAVITY Social History Tobacco Use Types Packs/Day Years Used Date Smoking Tobacco: Never Assessed Sex and Gender Information Value Date Recorded Sex Assigned at Not on file Legal Sex Male 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
--- OUTSIDE RECORDS SUMMARY | 2025-04-06 05:15 | XMS_ITS | Encounter Summary ---
Author Organization [facility] Address [address] [place] [address] Care Team Providers Care Slag Production Worker Name Role Phone Cuba Solano MD Primary Care Provider +1 [phone] Encounter Details Date Type Department Care Team (Latest Contact Info) Description 10/02/2002 Outpatient Historical [facility] Family Medicine Angel[place] [address] [address] Donte Borrego MD NO ADDRESS ON FILE ANEMIA NOS (Primary Dx) Social History Tobacco Use Types Packs/Day Years Used Date Smoking Tobacco: Never Assessed Sex and Gender Information Value Date Recorded Sex Assigned at Not on file Legal Sex Male 2:49 AM ANY COMMODITY BUYER Gender Identity Not on file Sexual Orientation Not on file documented as of this encounter Plan of Treatment Not on file documented as of this encounter Visit Diagnoses Diagnosis Anemia, unspecified- Primary documented in this encounter Care Teams Slag Production Worker Relationship Specialty Start Date End Date Cuba Solano MD PCP - General 07/11/09 documented as of this encounter
--- OUTSIDE RECORDS SUMMARY | 2025-04-06 05:15 | XMS_ITS | Encounter Summary ---
Author Organization [facility] Address [address] [place] [address] Care Team Providers Care Patent Prosecution Paralegal Name Role Phone Cuba Solano MD Primary Care Provider +1 [phone] Encounter Details Date Type Department Care Team (Latest Contact Info) Description 02/01/2003 Outpatient Historical [facility] Family Medicine [place] [facility] [address] [address] Huey Upton Jr., MD [address] [place] [address] 248 [facility] [address] [place] [address] Benign hypertension (Primary Dx); ALLERGY, UNSPECIFIED Social History Tobacco Use Types Packs/Day Years Used Date Smoking Tobacco: Never Assessed Sex and Gender Information Value Date Recorded Sex Assigned at Not on file Legal Sex Male 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
--- OUTSIDE RECORDS SUMMARY | 2025-04-06 05:15 | XMS_ITS | Encounter Summary ---
Author Organization [facility] Address [address] [place] [address] Care Team Providers Care Chargeback Specialist Name Role Phone Cuba Solano MD Primary Care Provider +1 [phone] Encounter Details Date Type Department Care Team (Latest Contact Info) Description 09/01/[address] 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
--- OUTSIDE RECORDS SUMMARY | 2025-04-06 05:15 | XMS_ITS | Encounter Summary ---
Author Organization [facility] Address [address] [place] [address] Care Team Providers Care Senior Clinical Study Manager Name Role Phone Cuba Solano MD Primary Care Provider +1 [phone] Encounter Details Date Type Department Care Team (Latest Contact Info) Description 08/09/2002 Outpatient Historical [facility] Family Medicine [place] [address] [address] Donte Borrego MD NO ADDRESS ON FILE Benign hypertension (Primary Dx); ALLERGY, UNSPECIFIED Social History Tobacco Use Types Packs/Day Years Used Date Smoking Tobacco: Never Assessed Sex and Gender Information Value Date Recorded Sex Assigned at Not on file Legal Sex Male 2:49 AM DIRECTOR OF 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
--- OUTSIDE RECORDS SUMMARY | 2025-04-06 05:15 | XMS_ITS | Encounter Summary ---
Author Organization [facility] Address [address] [place] [address] Care Team Providers Care Salesperson Men'S And Boys' Clothing Name Role Phone Cuba Solano MD Primary Care Provider +1 [phone] Encounter Details Date Type Department Care Team (Latest Contact Info) Description 03/14/2004 Outpatient Historical [facility] [address] [place] [address] Kvng Kilpatrick MD NO ADDRESS ON FILE HYPERSOMNI W SLEEP APNEA (Primary Dx) Social History Tobacco Use Types Packs/Day Years Used Date Smoking Tobacco: Never Assessed Sex and Gender Information Value Date Recorded Sex Assigned at Not on file Legal Sex Male 2:49 AM ADJUNCT TRAINER Gender Identity Not on file Sexual Orientation Not on file documented as of this encounter Plan of Treatment Not on file documented as of this encounter Visit Diagnoses Diagnosis Hypersomnia with sleep apnea, unspecified- Primary documented in this encounter Care Teams Salesperson Men'S [employer] Boys' Clothing Relationship Specialty Start Date End Date Cuba Solano MD PCP - General 07/11/09 documented as of this encounter
--- OUTSIDE RECORDS SUMMARY | 2025-04-06 05:15 | XMS_ITS | Encounter Summary ---
Author Organization [facility] Address [address] [place] [address] Care Team Providers Care Recruitment Specialist Name Role Phone Cuba Solano MD Primary Care Provider +1 [phone] Encounter Details Date Type Department Care Team (Latest Contact Info) Description 02/15/2004 Outpatient Historical [facility] Family Medicine [place] [id number] [address] Keyona Mccloud, LUCIEN NO ADDRESS ON FILE Vaccine for influenza (Primary Dx); ABN BLOOD CHEMISTRY NEC; URINARY FREQUENCY Social History Tobacco Use Types Packs/Day Years Used Date Smoking Tobacco: Never Assessed Sex and Gender Information Value Date Recorded Sex Assigned at Not on file Legal Sex Male 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
--- OUTSIDE RECORDS SUMMARY | 2025-04-06 05:15 | XMS_ITS | Encounter Summary ---
Author Organization [facility] Address [address] [place] [address] Care Team Providers Care Paratransit Operator Name Role Phone Cuba Solano MD Primary Care Provider +1 [phone] Encounter Details Date Type Department Care Team (Latest Contact Info) Description 04/04/2003 Outpatient Historical [facility] Family Medicine [place] [address] [address] Keyona Mccloud, LUCIEN NO ADDRESS ON FILE OTHER MALAISE AND FATIGUE (Primary Dx) Social History Tobacco Use Types Packs/Day Years Used Date Smoking Tobacco: Never Assessed Sex and Gender Information Value Date Recorded Sex Assigned at Not on file Legal Sex Male 2:49 AM LOOM OVERHAULER Gender Identity Not on file Sexual Orientation Not on file documented as of this encounter Plan of Treatment Not on file documented as of this encounter Visit Diagnoses Diagnosis Other malaise and fatigue- Primary documented in this encounter Care Teams Paratransit Operator Relationship Specialty Start Date End Date Cuba Solano MD PCP - General 07/11/09 documented as of this encounter
--- OUTSIDE RECORDS SUMMARY | 2025-04-06 05:15 | XMS_ITS | Encounter Summary ---
Author Organization [facility] Address [address] [place] [address] Care Team Providers Care Timing Machine Operator Name Role Phone Cuba Solano MD Primary Care Provider +1 [phone] Encounter Details Date Type Department Care Team (Latest Contact Info) Description 05/17/2003 Outpatient Historical [facility] [place] [address] [address] Keyona Mccloud, LUCIEN NO ADDRESS ON FILE HYPERLIPIDEMIA NEC/NOS (Primary Dx); VITAMIN B DEFICIENCY NOS; AFTERCARE COLOR ADVISER USE MEDICATN Social History Tobacco Use Types Packs/Day Years Used Date Smoking Tobacco: Never Assessed Sex and Gender Information Value Date Recorded Sex Assigned at Not on file Legal Sex Male 2:49 AM CASINO RUNNER Gender Identity Not on file Sexual Orientation Not on file documented as of this encounter Plan of Treatment Not on file documented as of this encounter Visit Diagnoses Diagnosis Other and unspecified hyperlipidemia- Primary Unspecified vitamin B deficiency Encounter for long-term (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 of other medications documented in this encounter Care Teams Timing Machine Operator Relationship Specialty Start Date End Date Cuba Solano MD PCP - General 07/11/09 documented as of this encounter
--- OUTSIDE RECORDS SUMMARY | 2025-04-06 05:15 | XMS_ITS | Encounter Summary ---
Author Organization [facility] Address [address] [place] [address] Care Team Providers Care Chemical Laboratory Scientist Name Role Phone Cuba Solano MD Primary Care Provider +1 [phone] Encounter Details Date Type Department Care Team (Latest Contact Info) Description 10/16/2003 Outpatient Historical [facility] [place] [address] [facility] [address] [place] [address] Sandro Haines MD [address] [facility] [address] [place] [address] MELENA, BLOOD IN STOOL (Primary Dx) Social History Tobacco Use Types Packs/Day Years Used Date Smoking Tobacco: Never Assessed Sex and Gender Information Value Date Recorded Sex Assigned at Not on file Legal Sex Male 2:49 AM BUSINESS JOB TITLES Gender Identity Not on file Sexual Orientation Not on file documented as of this encounter Plan of Treatment Not on file documented as of this encounter Visit Diagnoses Diagnosis Blood in stool- Primary documented in this encounter Care Teams Chemical Laboratory Scientist Relationship Specialty Start Date End Date Cuba Solano MD PCP - General 07/11/09 documented as of this encounter
--- OUTSIDE RECORDS SUMMARY | 2025-04-06 05:15 | XMS_ITS | Encounter Summary ---
Author Organization [facility] Address [address] [place] [address] Care Team Providers Care Near Eastern Archaeology Lecturer Name Role Phone Cuba Solano MD Primary Care Provider [phone] [phone] Encounter Details Date Type Department Care Team (Late st Contact Info) Description 11/27/[address] 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
--- OUTSIDE RECORDS SUMMARY | 2025-04-06 05:15 | XMS_ITS | Encounter Summary ---
Author Organization [facility] Address [address] [place] [address] Care Team Providers Care Parts Person Name Role Phone Cuba Solano MD Primary Care Provider +1 [phone] Encounter Details Date Type Department Care Team (Latest Contact Info) Description 12/04/2003 Outpatient Historical [facility] Family Medicine [place] [address] [address] Donte Borrego MD NO ADDRESS ON FILE URIN TRACT INFECTION NOS (Primary Dx) Social History Tobacco Use Types Packs/Day Years Used Date Smoking Tobacco: Never Assessed Sex and Gender Information Value Date Recorded Sex Assigned at Not on file 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
--- OUTSIDE RECORDS SUMMARY | 2025-04-06 05:15 | XMS_ITS | Encounter Summary ---
Author Organization [facility] Address [address] [place] [address] Care Team Providers Care Boiler House Inspector Name Role Phone Cuba Solano MD Primary Care Provider [phone] [phone] Encounter Details Date Type Department Care Team (Latest Contact Info) Description 05/17/2003 Outpatient Historical [facility] Family Medicine [place] 63[address] [address] Keyona Mccloud, LUCIEN NO ADDRESS ON FILE AFTERCARE NURSING HOME USE MEDICATN (Primary Dx) Social History Tobacco Use Types Packs/Day Years Used Date Smoking Tobacco: Never Assessed Sex and Gender Information Value Date Recorded Sex Assigned at Not on file Legal 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
--- OUTSIDE RECORDS SUMMARY | 2025-04-06 05:15 | XMS_ITS | Encounter Summary ---
Author Organization [facility] Address [address] [place] [address] Care Team Providers Care Technical Supervisor Name Role Phone Cuba Solano MD Primary Care Provider +1 [phone] Encounter Details Date Type Department Care Team (Latest Contact Info) Description 10/02/2003 Outpatient Historical [facility] Family Medicine [place] 0[address]32 [address] [address] Keyona Mccloud, LUCIEN NO ADDRESS ON FILE HYPERLIPIDEMIA NEC/NOS (Primary Dx) Social History Tobacco Use Types Packs/Day Years Used Date Smoking Tobacco: Never Assessed Sex and Gender Information Value Date Recorded Sex Assigned at Not on file Legal 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
--- OUTSIDE RECORDS SUMMARY | 2025-04-06 05:15 | XMS_ITS | Encounter Summary ---
Author Organization [facility] Address [address] [place] [address] Care Team Providers Care Senior Wind Turbine Technician Name Role Phone Cuba Solano MD Primary Care Provider +1 [phone] Encounter Details Date Type Department Care Team (Latest Contact Info) Description 01/10/2004 Outpatient Historical [facility] Angelica [address] [address] Donte Borrego MD NO ADDRESS ON FILE Pain in limb (Primary Dx); JOINT PAIN-ANKLE Social History Tobacco Use Types Packs/Day Years Used Date Smoking Tobacco: Never Assessed Sex and Gender Information Value Date Recorded Sex Assigned at Not on file Legal Sex Male 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
--- OUTSIDE RECORDS SUMMARY | 2025-04-06 05:15 | XMS_ITS | Encounter Summary ---
Author Organization [facility] Address [address] [place] [address] Care Team Providers Care Regulator Pin Inserter Name Role Phone Cuba Solano MD Primary Care Provider +1 [phone] Encounter Details Date Type Department Care Team (Latest Contact Info) Description 07/03/2002 Outpatient Historical [facility] Family Medicine [place] 692492 [address] [address] Donte Borrego MD NO ADDRESS ON FILE OTHER MALAISE AND FATIGUE (Primary Dx) Social History Tobacco Use Types Packs/Day Years Used Date Smoking Tobacco: Never Assessed Sex and Gender Information Value Date Recorded Sex Assigned at Not on file Legal 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
--- OUTSIDE RECORDS SUMMARY | 2025-04-06 05:15 | XMS_ITS | Encounter Summary ---
Author Organization [facility] Address [address] [place] [address] Care Team Providers Care Slip Laster Name Role Phone Cuba Solano MD Primary Care Provider +1 [phone] Encounter Details Date Type Department Care Team (Latest Contact Info) Description 10/12/2003 Outpatient Historical [facility] Family Medicine [place] 761022 [address] [address] Donte Borrego MD NO ADDRESS ON FILE GASTROINTEST HEMORR NOS (Primary Dx) Social History Tobacco Use Types Packs/Day Years Used Date Smoking Tobacco: Never Assessed Sex and Gender Information Value Date Recorded Sex Assigned at Not on file 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
--- OUTSIDE RECORDS SUMMARY | 2025-04-06 05:15 | XMS_ITS | Encounter Summary ---
Author Organization [facility] Address [address] [place] [address] Care Team Providers Care Winding Lathe Operator Name Role Phone Cuba Solano MD Primary Care Provider +1 [phone] Encounter Details Date Type Department Care Team (Latest Contact Info) Description 10/02/2002 Outpatient Historical [facility] Family Medicine Angelica [address] [address] Donte Borrego MD NO ADDRESS ON FILE ANEMIA NOS (Primary Dx) Social History Tobacco Use Types Packs/Day Years Used Date Smoking Tobacco: Never Assessed Sex and Gender Information Value Date Recorded Sex Assigned at Not on file Legal Sex Male 2: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
--- OUTSIDE RECORDS SUMMARY | 2025-04-06 05:15 | XMS_ITS | Encounter Summary ---
Author Organization [facility] Address [address] [place] [address] Care Team Providers Care Antisqueak Chalker Name Role Phone Cuba Solano MD Primary Care Provider +1 [phone] Encounter Details Date Type Department Care Team (Latest Contact Info) Description 01/03/2004 Outpatient Historical [facility] Family Medicine [place] [address] [address] Keyona Mccloud, LUCIEN NO ADDRESS ON FILE ANEMIA NOS (Primary Dx) Social History Tobacco Use Types Packs/Day Years Used Date Smoking Tobacco: Never Assessed Sex and Gender Information Value Date Recorded Sex Assigned at Not on file Legal Sex Male 2:49 AM COUNTY ORDINARY Gender Identity Not on file Sexual Orientation Not on file documented as of this encounter Plan of Treatment Not on file documented as of this encounter Visit Diagnoses Diagnosis Anemia, unspecified- Primary documented in this encounter Care Teams Antisqueak Chalker Relationship Specialty Start Date End Date Cuba Solano MD PCP - General 07/11/09 documented as of this encounter
--- OUTSIDE RECORDS SUMMARY | 2025-04-06 05:15 | XMS_ITS | Encounter Summary ---
Author Organization [facility] Address [address] [place] [address] Care Team Providers Care Big Data Software Engineer Name Role Phone Cuba Solano MD Primary Care Provider +1 [phone] Encounter Details Date Type Department Care Team (Latest Contact Info) Description 12/04/2003 Outpatient Historical [facility] Family Medicine [place] [address]6452 [address] [address] Donte Borrego MD NO ADDRESS ON FILE URIN TRACT INFECTION NOS (Primary Dx); ANEMIA NOS; UNSPEC CONSTIPATION Social History Tobacco Use Types Packs/Day Years Used Date Smoking Tobacco: Never Assessed Sex and Gender Information Value Date Recorded Sex Assigned at Not on file Legal Sex Male 2:49 AM PATIENT COORDINATOR Gender Identity Not on file Sexual Orientation Not on file documented as of this encounter Plan of Treatment Not on file documented as of this encounter Visit Diagnoses Diagnosis Urinary tract infection, site not specified- Primary Anemia, unspecified Unspecified constipation documented in this encounter Care Teams Big Data Software Engineer Relationship Specialty Start Date End Date Cuba Solano MD PCP - General 07/11/09 documented as of this encounter
--- OUTSIDE RECORDS SUMMARY | 2025-04-06 05:15 | XMS_ITS | Encounter Summary ---
Author Organization [facility] Address [address] [place] [address] Care Team Providers Care Retina Subspecialist Name Role Phone Cuba Solano MD Primary Care Provider +1 [phone] Encounter Details Date Type Department Care Team (Latest Contact Info) Description 11/12/2003 Outpatient Historical [facility] Family Medicine [place] 8[address]392 [address] [address] Donte Borrego MD NO ADDRESS ON FILE URIN TRACT INFECTION NOS (Primary Dx) Social History Tobacco Use Types Packs/Day Years Used Date Smoking Tobacco: Never Assessed Sex and Gender Information Value Date Recorded Sex Assigned at Not on file Legal Sex Male 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
--- OUTSIDE RECORDS SUMMARY | 2025-04-06 05:15 | XMS_ITS | Encounter Summary ---
Author Organization [facility] Address [address] [place] [address] Care Team Providers Care Clinical Coordinator Name Role Phone Cuba Solano MD Primary Care Provider +1 [phone] Encounter Details Date Type Department Care Team (Latest Contact Info) Description 01/05/2003 Outpatient Historical [facility] Cardiovascular Services [address] [place] [address] Non-Staff, Physician NO ADDRESS ON FILE PAIN IN LIMB (Primary Dx) Social History Tobacco Use Types Packs/Day Years Used Date Smoking Tobacco: Never Assessed Sex and Gender Information Value Date Recorded Sex Assigned at Not on file 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
--- OUTSIDE RECORDS SUMMARY | 2025-04-06 05:15 | XMS_ITS | Encounter Summary ---
Author Organization [facility] Address [address] [place] [address] Care Team Providers Care Driver/Sales Workers Name Role Phone Cuba Solano MD Primary Care Provider +1 [phone] Encounter Details Date Type Department Care Team (Latest Contact Info) Description 02/25/2004 Outpatient Historical [facility] Family Medicine [place] 7[address] [address] Keyona Mccloud FNP NO ADDRESS ON FILE DIABETES MELLITUS TYPE II-UNCOMPL (CMS/HCC) (Primary Dx); ACUTE URI NOS Social History Tobacco Use Types Packs/Day Years Used Date Smoking Tobacco: Never Assessed Sex and Gender Information Value Date Recorded Sex Assigned at Not on file Legal 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
--- OUTSIDE RECORDS SUMMARY | 2025-04-06 05:15 | XMS_ITS | Encounter Summary ---
Author Organization [facility] Address [address] [place] [address] Care Team Providers Care Mortgage Sales Manager Name Role Phone Cuba Solano MD Primary Care Provider +1 [phone] Encounter Details Date Type Department Care Team (Latest Contact Info) Description 01/03/2003 Outpatient Historical [facility] Family Medicine [place] 082932 [address] [address] Donte Borrego MD NO ADDRESS ON FILE ACUTE PHARYNGITIS (Primary Dx); ACUTE URI NOS Social History Tobacco Use Types Packs/Day Years Used Date Smoking Tobacco: Never Assessed Sex and Gender Information Value Date Recorded Sex Assigned at Not on file Legal Sex Male 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
--- OUTSIDE RECORDS SUMMARY | 2025-04-06 05:15 | XMS_ITS | Encounter Summary ---
Author Organization [facility] Address [address] [place] [address] Care Team Providers Care Public Information Director Name Role Phone Cuba Solano MD Primary Care Provider +1 [phone] Encounter Details Date Type Department Care Team (Latest Contact Info) Description 11/02/2003 Outpatient Historical [facility] Family Medicine [place] 471482 [address] [address] Donte Borrego MD NO ADDRESS ON FILE HYPERTENSION NOS (Primary Dx) Social History Tobacco Use Types Packs/Day Years Used Date Smoking Tobacco: Never Assessed Sex and Gender Information Value Date Recorded Sex Assigned at Not on file Legal 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
--- OUTSIDE RECORDS SUMMARY | 2025-04-06 05:15 | XMS_ITS | Encounter Summary ---
Author Organization [facility] Address [address] [place] [address] Care Team Providers Care Vineyard Supervisor Name Role Phone Cuba Solano MD Primary Care Provider +1 [phone] Encounter Details Date Type Department Care Team (Latest Contact Info) Description 10/16/2003 Outpatient Historical [facility] Endoscopy [address] 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
--- OUTSIDE RECORDS SUMMARY | 2025-04-06 05:16 | XMS_ITS | Encounter Summary ---
Author Organization [facility] Address [address] [place] [address] Care Team Providers Care Nylon Winder Name Role Phone Cuba Solano MD Primary Care Provider +1 [phone] Encounter Details Date Type Department Care Team (Latest Contact Info) Description 08/15/1999 Outpatient Historical [facility] Moi George MD [address] [place] [address] Nonspecific abnormal results of liver function study (Primary Dx); Esophageal reflux; Unspecified hemorrhoids 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 Social History Tobacco Use Types Packs/Day Years Used Date Smoking Tobacco: Never Assessed Sex and Gender Information Value Date Recorded Sex Assigned at Not on file Legal Sex Male 2: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
--- OUTSIDE RECORDS SUMMARY | 2025-04-06 05:16 | XMS_ITS | Encounter Summary ---
Author Organization [facility] Address [address] [place] [address] Phone Care Team Providers Care Dealer Accounts Investigator Name Role Phone Loren Canada MD Primary Care Provider [phone] Encounter Details Date Type Department Care Team (Late st Contact Info) Description 09/22/2022 [facility] [address] [facility] [address] [place] [address] Chronic kidney disease stage 3B [...] (HCC) documented in this encounter Care Teams Dealer Accounts Investigator Relationship Specialty Start Date End Date Loren Canada MD [address] [place], [place] [address] PCP - General Family Medicine 09/22/22 documented as of this encounter
--- OUTSIDE RECORDS SUMMARY | 2025-04-06 05:16 | XMS_ITS | Encounter Summary ---
Author Organization [facility] Address [address] [place] [address] Care Team Providers Care Photographic Printer Name Role Phone Cuba Solano MD Primary Care Provider +1 [phone] Encounter Details Date Type Department Care Team (Latest Contact Info) Description 09/04/2003 Outpatient Historical [facility] Family Medicine [place]ica [facility] [address] [address] Huey Upton Jr., MD [address] [place] [address] 248 [facility] [address] [place] [address] OTHER MALAISE AND FATIGUE (Primary Dx) Social History Tobacco Use Types Packs/Day Years Used Date Smoking Tobacco: Never Assessed Sex and Gender Information Value Date Recorded Sex Assigned at Not on file Legal 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
--- OUTSIDE RECORDS SUMMARY | 2025-04-06 05:16 | XMS_ITS | Encounter Summary ---
Author Organization [facility] Address [address] [place] [address] Care Team Providers Care Commercial Crabber Name Role Phone Cuba Solano MD Primary Care Provider +1 [phone] Encounter Details Date Type Department Care Team (Latest Contact Info) Description 12/30/2006 Outpatient Historical [facility] Family Medicine Angelica [place] [id number] [address] Keyona Mccloud FNP NO ADDRESS ON FILE DM w/o Complication Type II (CMS/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
--- OUTSIDE RECORDS SUMMARY | 2025-04-06 05:16 | XMS_ITS | Encounter Summary ---
Author Organization [facility] Address [address] [place] [address] Care Team Providers Care Maintenance Mechanic Telephone Name Role Phone Cuba Solano MD Primary Care Provider +1 [phone] Encounter Details Date Type Department Care Team (Latest Contact Info) Description 06/10/2007 Outpatient Historical [facility] [address] [place] [address] Keyona Mccloud FNP NO ADDRESS ON FILE DM w/o Complication Type II, Uncontrolled Social History Tobacco Use Types Packs/Day Years Used Date Smoking Tobacco: Never Assessed Sex and Gender Information Value Date Recorded Sex Assigned at Not on file Legal Sex Male 2:49 AM CVICU RN Gender Identity Not on file Sexual Orientation Not on file documented as of this encounter Plan of Treatment Not on file documented as of this encounter Visit Diagnoses Diagnosis Type II or unspecified type diabetes mellitus 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, uncontrolled documented in this encounter Care Teams Maintenance Mechanic Telephone Relationship Specialty Start Date End Date Cuba Solano MD PCP - General 07/11/09 documented as of this encounter
--- OUTSIDE RECORDS SUMMARY | 2025-04-06 05:16 | XMS_ITS | Encounter Summary ---
Author Organization [facility] Address [address] [place] [address] Care Team Providers Care Refined Syrup Operator Name Role Phone Cuba Solano MD Primary Care Provider +1 [phone] Encounter Details Date Type Department Care Team (Latest Contact Info) Description 08/07/2003 Outpatient Historical [facility] Family Medicine Angelica [place] [address] [address] Donte Borrego MD NO ADDRESS ON FILE LUPUS ERYTHEMATOSUS (Primary Dx); ALLERGY, UNSPECIFIED Social History Tobacco Use Types Packs/Day Years Used Date Smoking Tobacco: Never Assessed Sex and Gender Information Value Date Recorded Sex Assigned at Not on file Legal 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
--- OUTSIDE RECORDS SUMMARY | 2025-04-06 05:16 | XMS_ITS | Encounter Summary ---
Author Organization [facility] Address [address] [place] [address] Care Team Providers Care Judicial Assistant Name Role Phone Cuba Solano MD Primary Care Provider +1 [phone] Encounter Details Date Type Department Care Team (Late st Contact Info) Description 05/31/2007 Outpatient Historical [facility] Family Medicine Angelica [place] [address] [address] Keyona Mccloud, OXYGEN EQUIPMENT PREPARER NO ADDRESS ON FILE Social History Tobacco Use Types Packs/Day Years Used Date Smoking Tobacco: Never Assessed Sex and Gender Information Value Date Recorded Sex Assigned at Not on file Legal Sex Male 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
--- OUTSIDE RECORDS SUMMARY | 2025-04-06 05:16 | XMS_ITS | Encounter Summary ---
Author Organization [facility] Address [address] [place] [address] Care Team Providers Care Playroom Attendant Name Role Phone Cuba Solano MD Primary Care Provider +1 [phone] Encounter Details Date Type Department Care Team (Late st Contact Info) Description 02/07/2008 Outpatient Historical [facility] [address] [place] [address] [place] [address] Per Perea NP [address] [place] [address] Social History Tobacco Use Types Packs/Day Years Used Date Smoking Tobacco: Never Assessed Cigarettes Smokeless Tobacco: Current Chew Alcohol Use Standard Drinks/Week Comments No 0 (1 standard drink = 0.6 oz pur e alcohol) Sex and Gender Information Value Date Recorded Sex Assigned at Not on file Legal Sex Male 2:49 AM QUALITY IMPROVEMENT ENGINEER Gender Identity Not on file Sexual Orientation Not on file documented as of this encounter Plan of Treatment Not on file documented as of this encounter Visit Diagnoses Not on filedocumented in this encounter Care Teams Playroom Attendant Relationship Specialty Start Date End Date Cuba Solano MD PCP - General 07/11/09 documented as of this encounter
--- OUTSIDE RECORDS SUMMARY | 2025-04-06 05:16 | XMS_ITS | Encounter Summary ---
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
--- OUTSIDE RECORDS SUMMARY | 2025-04-06 05:16 | XMS_ITS | Encounter Summary ---
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
--- OUTSIDE RECORDS SUMMARY | 2025-04-06 05:16 | XMS_ITS | Encounter Summary ---
Author Organization [facility] Address [address] [place] [address] Care Team Providers Care Sort Operations Supervisor Name Role Phone Cuba Solano MD Primary Care Provider +1 [phone] Encounter Details Date Type Department Care Team (Late st Contact Info) Description 04/05/2007 Outpatient Historical [facility] Family Medicine Angelica [facility] [address] [address] Keyona Mccloud, MANAGER SCIENCE NO ADDRESS ON FILE Social History Tobacco Use Types Packs/Day Years Used Date Smoking Tobacco: Never Assessed Sex and Gender Information Value Date Recorded Sex Assigned at Not on file Legal Sex Male 2:49 AM BUSINESS CONSULTANT Gender Identity Not on file Sexual Orientation Not on file documented as of this encounter Plan of Treatment Not on file documented as of this encounter Visit Diagnoses Not on filedocumented in this encounter Care Teams Sort Operations Supervisor Relationship Specialty Start Date End Date Cuba Solano MD PCP - General 07/11/09 documented as of this encounter
--- OUTSIDE RECORDS SUMMARY | 2025-04-06 05:16 | XMS_ITS | Encounter Summary ---
Author Organization [facility] Address [address] [place] [address] Care Team Providers Care Zinc Skimmer Name Role Phone Cuba Solano MD Primary Care Provider +1 [phone] Encounter Details Date Type Department Care Team [...] file Legal Sex Male 2:49 AM CERTIFIED GREEN BUILDING ENGINEER Gender Identity Not on file Sexual Orientation Not on file documented as of this encounter Plan of Treatment Not on file documented as of this encounter Visit Diagnoses Not on filedocumented in this encounter Care Teams Zinc Skimmer Relationship Specialty Start Date End Date Cuba Solano MD PCP - General 07/11/09 documented as of this encounter
--- OUTSIDE RECORDS SUMMARY | 2025-04-06 05:16 | XMS_ITS | Encounter Summary ---
Author Organization [facility] Address [address] [place] [address] Care Team Providers Care Registered Associate Name Role Phone Cuba Solano MD Primary Care Provider +1 -[phone] Encounter Details Date Type Department Care Team (Latest Contact Info) Description 11/12/2006 Outpatient Historical [facility] Family Medicine Angelica [place] [address] [address] Keyona Mccloud, LUCIEN NO ADDRESS [...] limb documented in this encounter Care Teams Registered Associate Relationship Specialty Start Date End Date Cuba Solano MD PCP - General 07/11/09 documented as of this encounter
--- OUTSIDE RECORDS SUMMARY | 2025-04-06 05:16 | XMS_ITS | Encounter Summary ---
Author Organization [facility] Address [address] [place] [address] Care Team Providers Care Distribution Sales Representative Name Role Phone Cuba Solano MD Primary Care Provider +1 [phone] Encounter Details Date Type Department Care Team (Latest Contact Info) Description 08/15/1999 Outpatient Historical [facility] [place] [address] [place] [address] Other convulsions (Primary Dx) Social History Tobacco Use Types Packs/Day Years Used Date Smoking Tobacco: Never Assessed Sex and Gender Information Value Date Recorded Sex Assigned at Not on file Legal Sex Male 2:49 AM MATERIAL FLOW ANALYST Gender Identity Not on file Sexual Orientation Not on file documented as of this encounter Plan of Treatment Not on file documented as of this encounter Visit Diagnoses Diagnosis Other convulsions- Primary documented in this encounter Care Teams Distribution Sales Representative Relationship Specialty Start Date End Date Cuba Solano MD PCP - General 07/11/09 documented as of this encounter
--- OUTSIDE RECORDS SUMMARY | 2025-04-06 05:16 | XMS_ITS | Encounter Summary ---
Author Organization [facility] Address [address] [place] [address] Care Team Providers Care Security Guard Name Role Phone Cuba Solano MD Primary Care Provider +1 [phone] Encounter Details Date Type Department Care Team (Late st Contact Info) Description 03/07/2007 Outpatient Historical [place] [address] [place] [address] Celso Calvert MD [address] [place] [address] Social History Tobacco Use Types Packs/Day Years Used Date Smoking Tobacco: Never Assessed Sex and Gender Information Value Date Recorded Sex Assigned at Not on file Legal Sex Male 2:49 AM HEALTH CARE FACILITY ADMINISTRATOR Gender Identity Not on file Sexual Orientation Not on file documented as of this encounter Plan of Treatment Not on file documented as of this encounter Visit Diagnoses Not on filedocumented in this encounter Care Teams Security Guard Relationship Specialty Start Date End Date Cuba Solano MD PCP - General 07/11/09 documented as of this encounter
--- OUTSIDE RECORDS SUMMARY | 2025-04-06 05:16 | XMS_ITS | Encounter Summary ---
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
--- OUTSIDE RECORDS SUMMARY | 2025-04-06 05:16 | XMS_ITS | Encounter Summary ---
Author Organization [facility] Address [address] [place] [address] Care Team Providers Care Fiberglass Machine Operator Name Role Phone Cuba Solano MD Primary Care Provider +1 [phone] Encounter Details Date Type Department Care Team (Latest Contact Info) Description 11/30/2006 Outpatient Historical [facility] Family Medicine Angelica [place] [address] [address] Keyona Mccloud, LUCIEN NO ADDRESS ON FILE Unspecified Otitis Media (Primary Dx); DM w/o Complication Type II (CMS/HCC); Asymptomatic Varicose Veins Social History Tobacco Use Types Packs/Day Years Used Date Smoking Tobacco: Never Assessed Sex and Gender Information Value Date Recorded Sex Assigned at Not on file Legal Sex Male 2:49 AM INSTRUCTIONAL SUPPORT TECHNICIAN Gender Identity Not on file Sexual Orientation Not on file documented as of this encounter Plan of Treatment Not on file documented as of this encounter Visit Diagnoses Diagnosis Unspecified otitis media- Primary Type II or unspecified type diabetes mellitus 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, not stated as uncontrolled Asymptomatic varicose veins Uncomplicated varicose veins documented in this encounter Care Teams Fiberglass Machine Operator Relationship Specialty Start Date End Date Cuba Solano MD PCP - General 07/11/09 documented as of this encounter
--- OUTSIDE RECORDS SUMMARY | 2025-04-06 05:16 | XMS_ITS | Encounter Summary ---
Author Organization [facility] Address [address] [place] [address] Care Team Providers Care Meter/Relay Craftsman Name Role Phone Cuba Solano MD Primary Care Provider +1 [phone] Encounter Details Date Type Department Care Team (Latest Contact Info) Description 06/17/2007 Outpatient Historical [place] [address] [place] [address] Celso Calvert MD [address] [place] [address] DM w/o Complication Type II, Uncontrolled Social History Tobacco Use Types Packs/Day Years Used Date Smoking Tobacco: Never Assessed Sex and Gender Information Value Date Recorded Sex Assigned at Not on file Legal Sex Male 2:49 AM TOOL AND PRODUCTION PLANNER Gender Identity Not on file Sexual Orientation Not on file documented as of this encounter Plan of Treatment Not on file documented as of this encounter Visit Diagnoses Diagnosis Type II or unspecified type diabetes mellitus 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, uncontrolled documented in this encounter Care Teams Meter/Relay Craftsman Relationship Specialty Start Date End Date Cuba Solano MD PCP - General 07/11/09 documented as of this encounter
--- OUTSIDE RECORDS SUMMARY | 2025-04-06 05:16 | XMS_ITS | Encounter Summary ---
Author Organization [facility] Address [address] [place] [address] Care Team Providers Care Supervisor Tank Storage Name Role Phone Cuba Solano MD Primary Care Provider +1 [phone] Encounter Details Date Type Department Care Team (Latest Contact Info) Description 12/10/2006 Outpatient Historical [facility] [place] [address] Ash Lopez III, MD [address] [place] [address] Pain in Joint, Lower Leg (Primary Dx); Muscular Wasting and Disuse Atrophy, not Elsewhere Classified; Lower Limb Amputation, Above Knee (CMS/HCC) Social History Tobacco Use Types Packs/Day Years Used Date Smoking Tobacco: Never Assessed Sex and Gender Information Value Date Recorded Sex Assigned at Not on file Legal Sex Male 2:49 AM PEDIATRIC DERMATOLOGIST Gender Identity Not on file Sexual Orientation Not on file documented as of this encounter Plan of Treatment Not on file documented as of this encounter Visit Diagnoses Diagnosis Pain in joint, lower leg- Primary Muscular wasting and disuse atrophy, 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
--- OUTSIDE RECORDS SUMMARY | 2025-04-06 05:16 | XMS_ITS | Encounter Summary ---
Author Organization [facility] Address [address] [place] [address] Care Team Providers Care Registered Nurse Midwife Name Role Phone Cuba Solano MD Primary Care Provider +1 [phone] Encounter Details Date Type Department Care Team (Latest Contact Info) Description 12/03/2006 Outpatient Historical [place] [address] [place] [address] Celso Calvert MD [address] [place] [address] DM w/o Complication Type II, Uncontrolled (Primary Dx) Social History Tobacco Use Types Packs/Day Years Used Date Smoking Tobacco: Never Assessed Sex and Gender Information Value Date Recorded Sex Assigned at Not on file Legal Sex Male 2:49 AM CHAIN MAKER HAND Gender Identity Not on file Sexual Orientation Not on file documented as of this encounter Plan of Treatment Not on file documented as of this encounter Visit Diagnoses Diagnosis Type II or unspecified type diabetes mellitus 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, uncontrolled- Primary documented in this encounter Care Teams Registered Nurse Midwife Relationship Specialty Start Date End Date Cuba Solano MD PCP - General 07/11/09 documented as of this encounter
--- OUTSIDE RECORDS SUMMARY | 2025-04-06 05:16 | XMS_ITS | Encounter Summary ---
Author Organization [facility] Address [address] [place] [address] Care Team Providers Care Senior Project Coordinator Name Role Phone Cuba Solano MD Primary Care Provider +1 -[phone] Encounter Details Date Type Department Care Team (Latest Contact Info) Description 07/11/1999 Outpatient Historical [facility] Family Medicine [place] [address] [address] Donte Borrego MD NO ADDRESS ON FILE Unspecified essential hypertension (Primary Dx); Other convulsions; Allergy, unspecified not elsewhere classified Social History Tobacco Use Types Packs/Day Years Used Date Smoking Tobacco: Never Assessed Sex and Gender Information Value Date Recorded Sex Assigned at Not on file Legal Sex Male 2:49 AM MASONRY CONTRACTOR ADMINISTRATOR Gender Identity Not on file Sexual Orientation Not on file documented as of this encounter Plan of Treatment Not on file documented as of this encounter Visit Diagnoses Diagnosis Unspecified essential hypertension- Primary Other convulsions Allergy, unspecified not elsewhere classified documented in this encounter Care Teams Senior Project Coordinator Relationship Specialty Start Date End Date Cuba Solano MD PCP - General 07/11/09 documented as of this encounter
--- OUTSIDE RECORDS SUMMARY | 2025-04-06 05:16 | XMS_ITS | Encounter Summary ---
Author Organization [facility] Address [address] [place] [address] Care Team Providers Care Department Mgr Name Role Phone Cuba Solano MD Primary Care Provider +1 [phone] Encounter Details Date Type Department Care Team (Late st Contact Info) Description 09/21/2007 Outpatient Historical [facility] Keyona Mccloud, BIOLOGY INSTRUCTOR NO ADDRESS ON FILE Social History Tobacco Use Types Packs/Day Years Used Date Smoking Tobacco: Never Assessed Sex and Gender Information Value Date Recorded Sex Assigned at Not on file Legal Sex Male 2:49 AM INGOT PASSER Gender Identity Not on file Sexual Orientation Not on file documented as of this encounter Plan of Treatment Not on file documented as of this encounter Visit Diagnoses Not on filedocumented in this encounter Care Teams Department Mgr Relationship Specialty Start Date End Date Cuba Solano MD PCP - General 07/11/09 documented as of this encounter
--- OUTSIDE RECORDS SUMMARY | 2025-04-06 05:16 | XMS_ITS | Encounter Summary ---
Author Organization [facility] Address [address] [place] [address] Care Team Providers Care Health Services Coordinator Name Role Phone Cuba Solano MD Primary Care Provider +1 [phone] Encounter Details Date Type Department Care Team (Late st Contact Info) Description 08/15/1999 Outpatient Historical [facility] Social History Tobacco Use Types Packs/Day Years Used Date Smoking Tobacco: Never Assessed Sex and Gender Information Value Date Recorded Sex Assigned at Not on file Legal Sex Male 2:49 AM TAXATION CONSULTANT Gender Identity Not on file Sexual Orientation Not on file documented as of this encounter Plan of Treatment Not on file documented as of this encounter Visit Diagnoses Not on filedocumented in this encounter Care Teams Health Services Coordinator Relationship Specialty Start Date End Date Cuba Solano MD PCP - General 07/11/09 documented as of this encounter
--- OUTSIDE RECORDS SUMMARY | 2025-04-06 05:16 | XMS_ITS | Encounter Summary ---
Author Organization [facility] Address [address] [place] [address] Care Team Providers Care Solar Sales Consultant Name Role Phone Cuba Solano MD Primary Care Provider +1 [phone] Encounter Details Date Type Department Care Team (Late st Contact Info) Description 12/15/2007 Outpatient Historical [facility] Keyona Mccloud, DRAMA DIRECTOR NO ADDRESS ON FILE Social History Tobacco Use Types Packs/Day Years Used Date Smoking Tobacco: Never Assessed Cigarettes Smokeless Tobacco: Current Chew Alcohol Use Standard Drinks/Week Comments No 0 (1 standard drink = 0.6 oz pur e alcohol) Sex and Gender Information Value Date Recorded Sex Assigned at Not on file Legal Sex Male 2:49 AM AIR TRAFFIC CONTROL MANAGER Gender Identity Not on file Sexual Orientation Not on file documented as of this encounter Plan of Treatment Not on file documented as of this encounter Visit Diagnoses Not on filedocumented in this encounter Care Teams Solar Sales Consultant Relationship Specialty Start Date End Date Cuba Solano MD PCP - General 07/11/09 documented as of this encounter
--- OUTSIDE RECORDS SUMMARY | 2025-04-06 05:16 | XMS_ITS | Encounter Summary ---
Author Organization [facility] Address [address] [place] [address] Care Team Providers Care Engineering Technician Parking Name Role Phone Cuba Solano MD Primary Care Provider +1 [phone] Encounter Details Date Type Department Care Team (Latest Contact Info) Description 01/07/[address] [facility] Family Medicine [place] [address] [address] Donte Borrego MD NO ADDRESS ON FILE Other abnormal clinical finding (Primary Dx); Encounter for long-term (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 of other medications; Unspecified essential hypertension Social History Tobacco Use Types Packs/Day Years Used Date Smoking Tobacco: Never Assessed Sex and Gender Information Value Date Recorded Sex Assigned at Not on file Legal Sex Male 2:49 AM IMPROVEMENT ADVISOR Gender Identity Not on file Sexual Orientation Not on file documented as of this encounter Plan of Treatment Not on file documented as of this encounter Visit Diagnoses Diagnosis Other abnormal clinical finding- Primary Encounter for long-term (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 of other medications Unspecified essential hypertension documented in this encounter Care Teams Engineering Technician Parking Relationship Specialty Start Date End Date Cuba Solano MD PCP - General 07/11/09 documented as of this encounter
--- OUTSIDE RECORDS SUMMARY | 2025-04-06 05:16 | XMS_ITS | Encounter Summary ---
Author Organization [facility] Address [address] [place] [address] Care Team Providers Care Freight Service Inspector Name Role Phone Cuba Solano MD Primary Care Provider +1 [phone] Encounter Details Date Type Department Care Team (Late st Contact Info) Description 06/20/2007 Outpatient Historical [facility] Family Medicine [place] [id number] [address] Keyona Mccloud, LEATHER PRODUCTION ARTISAN NO ADDRESS ON FILE Social History Tobacco Use Types Packs/Day Years Used Date Smoking Tobacco: Never Assessed Sex and Gender Information Value Date Recorded Sex Assigned at Not on file Legal Sex Male 2:49 AM SPA ASSOCIATE Gender Identity Not on file Sexual Orientation Not on file documented as of this encounter Plan of Treatment Not on file documented as of this encounter Visit Diagnoses Not on filedocumented in this encounter Care Teams Freight Service Inspector Relationship Specialty Start Date End Date Cuba Solano MD PCP - General 07/11/09 documented as of this encounter
--- OUTSIDE RECORDS SUMMARY | 2025-04-06 05:16 | XMS_ITS | Encounter Summary ---
Author Organization [facility] Address [address] [place] [address] Care Team Providers Care Integrity Engineer Name Role Phone Cuba Solano MD Primary Care Provider +1 [phone] Encounter Details Date Type Department Care Team (Late st Contact Info) Description 07/07/1999 Outpatient Historical [facility] Family Medicine [place] [id number] [address] Social History Tobacco Use Types Packs/Day Years Used Date Smoking Tobacco: Never Assessed Sex and Gender Information Value Date Recorded Sex Assigned at Not on file Legal Sex Male 2:49 AM FUR COAT SEWER Gender Identity Not on file Sexual Orientation Not on file documented as of this encounter Plan of Treatment Not on file documented as of this encounter Visit Diagnoses Not on filedocumented in this encounter Care Teams Integrity Engineer Relationship Specialty Start Date End Date Cuba Solano MD PCP - General 07/11/09 documented as of this encounter
--- OUTSIDE RECORDS SUMMARY | 2025-04-06 05:16 | XMS_ITS | Encounter Summary ---
Author Organization [facility] Address [address] [place] [address] Care Team Providers Care Fitter Up Name Role Phone Cuba Solano MD Primary Care Provider +1 [phone] Encounter Details Date Type Department Care Team (Latest Contact Info) Description 05/11/2007 Outpatient Historical [facility] [address] [place] [address] Keyona Mccloud FNP NO ADDRESS ON FILE DM w/o Complication Type II, Uncontrolled Social History Tobacco Use Types Packs/Day Years Used Date Smoking Tobacco: Never Assessed Sex and Gender Information Value Date Recorded Sex Assigned at Not on file Legal Sex Male 2:49 AM FINANCIAL SERVICE REPRESENTATIVE Gender Identity Not on file Sexual Orientation Not on file documented as of this encounter Plan of Treatment Not on file documented as of this encounter Visit Diagnoses Diagnosis Type II or unspecified type diabetes mellitus 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, uncontrolled documented in this encounter Care Teams Fitter Up Relationship Specialty Start Date End Date Cuba Solano MD PCP - General 07/11/09 documented as of this encounter
--- OUTSIDE RECORDS SUMMARY | 2025-04-06 05:16 | XMS_ITS | Encounter Summary ---
Author Organization [facility] Address [address] [place] [address] Care Team Providers Care Mold Inspector Name Role Phone Cuba Solano MD Primary Care Provider +1 [phone] Encounter Details Date Type Department Care Team (Latest Contact Info) Description 10/06/1999 Outpatient Historical [facility] Family Medicine [place] [address] [address] Donte Borrego MD NO ADDRESS ON FILE Esophageal reflux (Primary Dx); Other and unspecified hyperlipidemia; Unspecified essential hypertension; Nonspecific abnormal results of liver function study Social History Tobacco Use Types Packs/Day Years Used Date Smoking Tobacco: Never Assessed Sex and Gender Information Value Date Recorded Sex Assigned at Not on file Legal Sex Male 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
--- OUTSIDE RECORDS SUMMARY | 2025-04-06 05:16 | XMS_ITS | Encounter Summary ---
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
--- OUTSIDE RECORDS SUMMARY | 2025-04-06 05:16 | XMS_ITS | Encounter Summary ---
Author Organization [facility] Address [address] [place] [address] Care Team Providers Care Operations Research Engineer Name Role Phone Cuba Solano MD Primary Care Provider +1 [phone] Encounter Details Date Type Department Care Team (Latest Contact Info) Description 09/10/1999 Outpatient Historical [facility] Moi George MD [address] [place] [address] Esophageal reflux (Primary Dx); Diaphragmatic hernia Social History Tobacco Use Types Packs/Day Years Used Date Smoking Tobacco: Never Assessed Sex and Gender Information Value Date Recorded Sex Assigned at Not on file Legal Sex Male 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
--- OUTSIDE RECORDS SUMMARY | 2025-04-06 05:16 | XMS_ITS | Encounter Summary ---
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
--- OUTSIDE RECORDS SUMMARY | 2025-04-06 05:16 | XMS_ITS | Clinical Summary ---
Author Organization [facility] Address [address] [address] Care Team Providers Care Rough Carpenter Name Role Phone Loren Canada MD Primary Care Provider [phone] Allergies Active Allergy Reactions Criticality Noted Date [...] in the evening. Active ergocalciferol 1.25 MG (44561 UT) capsule Take 50,000 Units by mouth [...] Comments Blood Pressure 118/72 05/06/2023 11:00 AM CAR PORTER Pulse 81 05/06/2023 11:00 AM CAR PORTER Temperature - - Respiratory Rate - - Oxygen Saturation - - Inhaled Oxygen Concentration - - Weight 206 kg (455 lb) 05/06/2023 11:00 AM CAR PORTER p er patient Height 182.9 cm (6') 05/06/2023 11:00 AM CAR PORTER Body Mass Index 61.71 05/06/2023 11:00 AM CAR PORTER Plan of Treatment Health Maintenance Due Date [...] to Health Maintenance Insurance Medicare Medicaid [place] ([id number]) Care Teams Rough Carpenter Relationship Specialty Start Date End Date Loren Canada MD [address] [place] [address] PCP - General Family Medicine 09/22/22
--- OUTSIDE RECORDS SUMMARY | 2025-04-06 05:16 | XMS_ITS | Encounter Summary ---
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
--- OUTSIDE RECORDS SUMMARY | 2025-04-06 05:16 | XMS_ITS | Encounter Summary ---
Author Organization [facility] Address [address] [place] [address] Care Team Providers Care Environmental Designer Name Role Phone Cuba Solano MD Primary Care Provider [phone] [phone] Encounter Details Date Type Department Care Team (Latest Contact Info) Description 09/06/2006 [facility] [address] [place] [address] Huey Upton Jr., MD [address] [place], [place] [address]y [address] [place] [address] DM w/o Complication Type II (CMS/HCC) (Primary Dx) Social History Tobacco Use Types Packs/Day Years Used Date Smoking Tobacco: Never Assessed Sex and Gender Information Value Date Recorded Sex Assigned at Not on file Legal Sex Male 2:49 AM DIETETIC INTERN Gender Identity Not on file Sexual Orientation Not on file documented as of this encounter Plan of Treatment Not on file documented as of this encounter Visit Diagnoses Diagnosis Type II or unspecified type diabetes mellitus 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, not stated as uncontrolled- Primary documented in this encounter Care Teams Environmental Designer Relationship Specialty Start Date End Date Cuba Solano MD PCP - General 07/11/09 documented as of this encounter
--- OUTSIDE RECORDS SUMMARY | 2025-04-06 05:16 | XMS_ITS | Encounter Summary ---
Author Organization [employer] [facility] Address [address] [place] [address] Care Team Providers Care Aircraft Instrument Engineer Name Role Phone Cuba Solano MD Primary Care Provider [phone] Encounter Details Date Type Department Care Team (Late st Contact Info) Description 06/20/2007 Outpatient Historical [facility] Other, [facility] NO ADDRESS ON FILE Social History Tobacco Use Types Packs/Day Years Used Date Smoking Tobacco: Never Assessed Sex and Gender Information Value Date Recorded Sex Assigned at Not on file Legal Sex Male 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
--- OUTSIDE RECORDS SUMMARY | 2025-04-06 05:17 | XMS_ITS | Encounter Summary ---
Author Organization [facility] Address [address] [place] [address] Care Team Providers Care Medical Clerk Name Role Phone Cuba Solano MD Primary Care Provider [phone] Encounter Details Date Type Department Care Team (Latest Contact Info) Description 12/03/1998 Outpatient Historical [facility] Family Medicine [place] [id number] [address] Donte Borrego MD NO ADDRESS ON FILE Other and unspecified hyperlipidemia (Primary Dx); Acute conjunctivitis, unspecified; Unspecified essential hypertension; Allergy, unspecified not elsewhere classified Social History Tobacco Use Types Packs/Day Years Used Date Smoking Tobacco: Never Assessed Sex and Gender Information Value Date Recorded Sex Assigned at Not on file Legal Sex Male 2:49 AM ASSISTANT ATTORNEY GENERAL Gender Identity Not on file Sexual Orientation Not on file documented as of this encounter Plan of Treatment Not on file documented as of this encounter Visit Diagnoses Diagnosis Other and unspecified hyperlipidemia- Primary Acute conjunctivitis, unspecified Unspecified essential hypertension Allergy, unspecified not elsewhere classified documented in this encounter Care Teams Medical Clerk Relationship Specialty Start Date End Date Cuba Solano MD PCP - General 07/11/09 documented as of this encounter
--- OUTSIDE RECORDS SUMMARY | 2025-04-06 05:17 | XMS_ITS | Encounter Summary ---
Author Organization [facility] Address [address] [place] [address] Care Team Providers Care Pets Salesperson Name Role Phone Cuba Solano MD Primary Care Provider [phone] [phone] Encounter Details Date Type Department Care Team (Latest Contact Info) Description 06/17/1998 Outpatient Historical [facility] Family Medicine [place] [address] [address] Donte Borrego MD NO ADDRESS ON FILE Other abnormal clinical finding (Primary Dx) Social History Tobacco Use Types Packs/Day Years Used Date Smoking Tobacco: Never Assessed Sex and Gender Information Value Date Recorded Sex Assigned at Not on file Legal Sex Male 2: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
--- OUTSIDE RECORDS SUMMARY | 2025-04-06 05:17 | XMS_ITS | Encounter Summary ---
Author Organization [facility] Address [address] [place] [address] Care Team Providers Care Manager Government Name Role Phone Cuba Solano MD Primary Care Provider +1 [phone] Encounter Details Date Type Department Care Team (Latest Contact Info) Description 04/10/1999 Outpatient Historical [facility] Family Medicine [place] [address] [address] Donte Borrego MD NO ADDRESS ON FILE Unspecified essential hypertension (Primary Dx) Social History Tobacco Use Types Packs/Day Years Used Date Smoking Tobacco: Never Assessed Sex and Gender Information Value Date Recorded Sex Assigned at Not on file Legal Sex Male 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
--- OUTSIDE RECORDS SUMMARY | 2025-04-06 05:17 | XMS_ITS | Encounter Summary ---
Author Organization [facility] Address [address] [place] [address] Care Team Providers Care Ink Jet Operator Name Role Phone Cuba Solano MD Primary Care Provider +1 [phone] Encounter Details Date Type Department Care Team (Latest Contact Info) Description 05/15/2005 Outpatient Historical [facility] Family Medicine [place] [address] [address] Keyona Mccloud, LUCIEN NO ADDRESS ON FILE DIABETES MELLITUS TYPE II-UNCOMPL (CMS/HCC) (Primary Dx); HYPERLIPIDEMIA NEC/NOS; ACUTE URI NOS Social History Tobacco Use Types Packs/Day Years Used Date Smoking Tobacco: Never Assessed Sex and Gender Information Value Date Recorded Sex Assigned at Not on file Legal Sex Male 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
--- OUTSIDE RECORDS SUMMARY | 2025-04-06 05:17 | XMS_ITS | Encounter Summary ---
Author Organization [facility] Address [address] [place] [address] Care Team Providers Care Contract Modeler Name Role Phone Cuba Solano MD Primary Care Provider +1 [phone] Encounter Details Date Type Department Care Team (Latest Contact Info) Description 04/08/1998 Outpatient Historical [facility] Family Medicine [place] [address] [address] Donte Borrego MD NO ADDRESS ON FILE Generalized osteoarthrosis, unspecified site (Primary Dx); Nonspecific elevation of levels of transaminase or lactic acid dehydrogenase (LDH); Need vaccination-viral disease Social History Tobacco Use Types Packs/Day Years Used Date Smoking Tobacco: Never Assessed Sex and Gender Information Value Date Recorded Sex Assigned at Not on file Legal Sex Male 2:49 AM CORN CUTTER Gender Identity Not on file Sexual [...] diseases documented in this encounter Care Teams Contract Modeler Relationship Specialty Start Date End Date Cuba Solano MD PCP - General 07/11/09 documented as of this encounter
--- OUTSIDE RECORDS SUMMARY | 2025-04-06 05:17 | XMS_ITS | Encounter Summary ---
Author Organization [facility] Address [address] [place] [address] Care Team Providers Care Manager Work Name Role Phone Cuba Solano MD Primary Care Provider +1 [phone] Encounter Details Date Type Department Care Team (Latest Contact Info) Description 10/08/1998 Outpatient Historical [facility] Family Medicine [place] [id number] [address] Donte Borrego MD NO ADDRESS ON FILE Esophageal reflux (Primary Dx); Unspecified essential hypertension; Unspecified disorder of liver Social History Tobacco Use Types Packs/Day Years Used Date Smoking Tobacco: Never Assessed Sex and Gender Information Value Date Recorded Sex Assigned at Not on file Legal 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
--- OUTSIDE RECORDS SUMMARY | 2025-04-06 05:17 | XMS_ITS | Encounter Summary ---
Author Organization [facility] Address [address] [place] [address] Care Team Providers Care Nuclear Pharmacist Name Role Phone Cuba Solano MD Primary Care Provider [phone] [phone] Encounter Details Date Type Department Care Team (Late st Contact Info) Description 05/12/2005 Outpatient Historical [facility] Family Medicine [place] [id number] [address] Social History Tobacco Use Types Packs/Day Years Used Date Smoking Tobacco: Never Assessed Sex and Gender Information Value Date Recorded Sex Assigned at Not on file Legal Sex Male 2:49 AM SCHEDULE MANAGER Gender Identity Not on file Sexual Orientation Not on file documented as of this encounter Plan of Treatment Not on file documented as of this encounter Visit Diagnoses Not on filedocumented in this encounter Care Teams Nuclear Pharmacist Relationship Specialty Start Date End Date Cuba Solano MD PCP - General 07/11/09 documented as of this encounter
--- OUTSIDE RECORDS SUMMARY | 2025-04-06 05:17 | XMS_ITS | Encounter Summary ---
Author Organization [facility] Address [address] [place] [address] Care Team Providers Care Addiction Medicine Physician Name Role Phone Cuba Solano MD Primary Care Provider [phone] [phone] Encounter Details Date Type Department Care Team (Latest Contact Info) Description 02/19/1998 Outpatient Historical [facility] [place] [address] [place] [address] Other convulsions (Primary Dx) Social History Tobacco Use Types Packs/Day Years Used Date Smoking Tobacco: Never Assessed Sex and Gender Information Value Date Recorded Sex Assigned at Not on file Legal Sex Male 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
--- OUTSIDE RECORDS SUMMARY | 2025-04-06 05:17 | XMS_ITS | Encounter Summary ---
Author Organization [facility] Address [address] [place] [address] Care Team Providers Care Historical Site Guide Name Role Phone Cuba Solano MD Primary Care Provider [phone] [phone] Encounter Details Date Type Department Care Team (Late st Contact Info) Description 02/23/2025 Results Follow-Up [address] [address] Becki Falcon NP [address] [address] CBC WITH DIFFERENTIAL, FERRITIN, IRON, [...] on file Legal Sex Male 5:38 AM CHIEF ENGINEER PRODUCTION Gender Identity Not on file Sexual Orientation Not on file documented as of this encounter Plan of Treatment Upcoming Encounters Date Type Department Care Team (Late Contact Info) Description 06/06/2025 11:30 AM CHIEF ENGINEER PRODUCTION Office Visit [facility] [address] Becki Falcon NP [address] [address] documented as of this encounter Visit Diagnoses Not on filedocumented in this encounter Care Teams Historical Site Guide Relationship Specialty Start Date End Date Cuba Solano MD PCP - General 07/11/09 documented as of this encounter
--- OUTSIDE RECORDS SUMMARY | 2025-04-06 05:17 | XMS_ITS | Encounter Summary ---
Author Organization [facility] Address [address] [place] [address] Care Team Providers Care Cloth Shrinking Machine Operator Helper Name Role Phone Cuba Solano MD Primary Care Provider [phone] [phone] Encounter Details Date Type Department Care Team (Latest Contact Info) Description 08/13/1998 Outpatient Historical [facility] Moi George MD [address] [place] [address] Abdominal pain, unspecified site (Primary Dx); Blood in stool; Esophageal reflux Social History Tobacco Use Types Packs/Day Years Used Date Smoking Tobacco: Never Assessed Sex and Gender Information Value Date Recorded Sex Assigned at Not on file Legal Sex Male 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
--- OUTSIDE RECORDS SUMMARY | 2025-04-06 05:17 | XMS_ITS | Encounter Summary ---
Author Organization [facility] Address [address] [place] [address] Care Team Providers Care Business Segment Manager Name Role Phone Cuba Solano MD Primary Care Provider +1 [phone] Encounter Details Date Type Department Care Team (Latest Contact Info) Description 08/13/1998 Outpatient Historical [facility] [place] [address] [place] [address] Other convulsions (Primary Dx) Social History Tobacco Use Types Packs/Day Years Used Date Smoking Tobacco: Never Assessed Sex and Gender Information Value Date Recorded Sex Assigned at Not on file Legal Sex Male 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
--- OUTSIDE RECORDS SUMMARY | 2025-04-06 05:17 | XMS_ITS | Encounter Summary ---
Author Organization [facility] Address [address] [place] [address] Care Team Providers Care Ski Guide Name Role Phone Cuba Solano MD Primary Care Provider +1 [phone] Encounter Details Date Type Department Care Team (Latest Contact Info) Description 05/26/2005 Outpatient Historical [facility] Family Medicine [place] [id number] [address] Keyona Mccloud, LUCIEN NO ADDRESS ON FILE ALLERGY, UNSPECIFIED (Primary Dx); TRACHEA/BRONCHUS DIS NEC Social History Tobacco Use Types Packs/Day Years Used Date Smoking Tobacco: Never Assessed Sex and Gender Information Value Date Recorded Sex Assigned at Not on file Legal Sex Male 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
--- OUTSIDE RECORDS SUMMARY | 2025-04-06 05:17 | XMS_ITS | Encounter Summary ---
Author Organization [facility] Address [address] [place] [address] Care Team Providers Care Electrical Machine Builder Name Role Phone Cuba Solano MD Primary Care Provider +1 [phone] Encounter Details Date Type Department Care Team (Latest Contact Info) Description 03/05/1999 Outpatient Historical [facility] Family Medicine [place] [address] [address] Donte Borrego MD NO ADDRESS ON FILE Need vaccination-viral disease (Primary Dx); Encounter for long-term (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 of other medications Social History Tobacco Use Types Packs/Day Years Used Date Smoking Tobacco: Never Assessed Sex and Gender Information Value Date Recorded Sex Assigned at Not on file Legal Sex Male 2:49 AM PROFESSIONAL WRESTLER Gender Identity Not on file Sexual Orientation Not on file documented as of this encounter Plan of Treatment Not on file documented as of this encounter Visit Diagnoses Diagnosis Need vaccination-viral disease- Primary Need for prophylactic vaccination and inoculation against other viral diseases Encounter for long-term (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 of other medications documented in this encounter Care Teams Electrical Machine Builder Relationship Specialty Start Date End Date Cuba Solano MD PCP - General 07/11/09 documented as of this encounter
--- OUTSIDE RECORDS SUMMARY | 2025-04-06 05:17 | XMS_ITS | Encounter Summary ---
Author Organization [facility] Address [address] [place] [address] Care Team Providers Care Building Attendant Name Role Phone Cuba Solano MD Primary Care Provider [phone] [phone] Encounter Details Date Type Department Care Team (Latest Contact Info) Description 07/20/2005 [facility] 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
--- OUTSIDE RECORDS SUMMARY | 2025-04-06 05:17 | XMS_ITS | Encounter Summary ---
Author Organization [employer] [facility] Address [address] [place] [address] Care Team Providers Care Casting Machine Operator Automatic Name Role Phone Cuba Solano MD Primary Care Provider +1 [phone] Encounter Details Date Type Department Care Team (Latest Contact Info) Description 01/15/1998 Outpatient Historical [facility] Moi George MD [address] [place] [address] Blood in stool (Primary Dx); Nonspecific abnormal results of liver function study Social History Tobacco Use Types Packs/Day Years Used Date Smoking Tobacco: Never Assessed Sex and Gender Information Value Date Recorded Sex Assigned at Not on file 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
--- OUTSIDE RECORDS SUMMARY | 2025-04-06 05:17 | XMS_ITS | Encounter Summary ---
Author Organization [facility] Address [address] [facility] Attn: [place] [address] Care Team Providers Care Crown Assembly Machine Set Up Mechanic Name Role Phone Cuba Solano MD Primary Care Provider +1 [phone] Encounter Details Date Type Department Care Team (Late st Contact Info) Description 07/07/1999 Outpatient Historical Donte Borrego MD NO ADDRESS ON FILE Social History Tobacco Use Types Packs/Day Years Used Date Smoking Tobacco: Never Assessed Sex and Gender Information Value Date Recorded Sex Assigned at Not on file 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
--- OUTSIDE RECORDS SUMMARY | 2025-04-06 05:17 | XMS_ITS | Encounter Summary ---
Author Organization [facility] Address [address] [place] [address] Care Team Providers Care Sql Data Analyst Name Role Phone Cuba Solano MD Primary Care Provider +1 [phone] Encounter Details Date Type Department Care Team (Latest Contact Info) Description 04/04/1999 Outpatient Historical [facility] Family Medicine [place]ica [facility] [address] [address] Zara Royal, DO [address] [place] [address] Edema (Primary Dx); Unspecified essential hypertension Social History Tobacco Use Types Packs/Day Years Used Date Smoking Tobacco: Never Assessed Sex and Gender Information Value Date Recorded Sex Assigned at Not on file 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
--- OUTSIDE RECORDS SUMMARY | 2025-04-06 05:17 | XMS_ITS | Continuity of Care Document ---
Author Organization [employer] [facility] ([facility]) Address [address] [place] [address] Insurance Providers Payer Plan Claims Address Claims Phone Policy Number Group Number Relation Employer Guarantor Name Guarantor Guarantor Address Guarantor Phone [place] [facility] [address] [address], [place] [address] tel:[phone] Self Marciano Alonso [address] [place] [id number] [place] [facility] [address], [place] [address] tel:[phone] Self Marciano Alonso [address] [place] [address] [employer] [facility] Part B Claims Departme nt, [address] [address], [place] [address] tel:[phone] Self Marciano Alonso [address] [place] [id number] Problems Condition ICD9 code ICD10 code SNOMED code Start Date End Date S tatus Urinary tract infection, site not specified N39.0 03/16/2025 Active Infection and inflammatory reaction due to indwelling urethral catheter, subsequent encounter T83.511D 03/16/2025 Active Sarcoidosis, unspecified D86.9 03/22/2025 Active Results Test Result Date/Time Value / Unit Interp. Refere nce Range Blood chemistry[[id number]] Glucose [Mass/volume] in Serum or Plasma [2345-7] 04/05/2025 05:13 PM 314 mg/dL N Blood chemistry[[id number]] Glucose [Mass/volume] in Serum or Plasma [2345-7] 04/05/2025 11:41 AM 255 mg/dL N Blood chemistry[[id number]] Glucose [Mass/volume] in Serum or Plasma [2345-7] 04/05/2025 05:03 PM 333 mg/dL N Blood chemistry[[id number]] Glucose [Mass/volume] in Serum or Plasma [2345-7] 04/05/2025 12:57 PM 299 mg/dL N Blood chemistry[[id number]] Glucose [Mass/volume] in Serum or Plasma [2345-7] 04/04/2025 01:54 PM 315 mg/dL N Blood chemistry[[id number]] Glucose [Mass/volume] in Serum or Plasma [2345-7] 04/04/2025 05:07 PM 245 mg/dL N Blood chemistry[[id number]] Glucose [Mass/volume] in Serum or Plasma [2345-7] 04/04/2025 10:08 AM 247 mg/dL N Blood chemistry[[id number]] Glucose [Mass/volume] in Serum or Plasma [2345-7] 04/04/2025 01:06 PM 309 mg/dL N Blood chemistry[[id number]] Glucose [Mass/volume] in Serum or Plasma [2345-7] 04/04/2025 06:17 PM 315 mg/dL N Blood chemistry[[id number]] Glucose [Mass/volume] in Serum or Plasma [2345-7] 04/03/2025 05:29 PM 485 mg/dL N Blood chemistry[[id number]] Glucose [Mass/volume] in Serum or Plasma [2345-7] 04/03/2025 10:09 AM 445 mg/dL N Blood chemistry[[id number]] Glucose [Mass/volume] in Serum or Plasma [2345-7] 04/03/2025 01:02 PM 332 mg/dL N Blood chemistry[[id number]] Glucose [Mass/volume] in Serum or Plasma [2345-7] 04/02/2025 01:58 PM 354 mg/dL N Blood chemistry[[id number]] Glucose [Mass/volume] in Serum or Plasma [2345-7] 04/02/2025 11:49 AM 410 mg/dL N Blood chemistry[[id number]] Glucose [Mass/volume] in Serum or Plasma [2345-7] 04/02/2025 10:14 AM 471 mg/dL N Blood chemistry[[id number]] Glucose [Mass/volume] in Serum or Plasma [2345-7] 04/02/2025 10:12 AM 471 mg/dL N Blood chemistry[[id number]] Glucose [Mass/volume] in Serum or Plasma [2345-7] 04/02/2025 01:40 PM 564 mg/dL N Blood chemistry[[id number]] Glucose [Mass/volume] in Serum or Plasma [2345-7] 04/01/2025 02:42 PM 495 mg/dL N Blood chemistry[[id number]] Glucose [Mass/volume] in Serum or Plasma [2345-7] 04/01/2025 11:10 AM 494 mg/dL N Blood chemistry[[id number]] Glucose [Mass/volume] in Serum or Plasma [2345-7] 04/01/2025 05:13 PM 520 mg/dL N Blood chemistry[[id number]] Glucose [Mass/volume] in Serum or Plasma [2345-7] 04/01/2025 01:16 PM 407 mg/dL N Blood chemistry[[id number]] Glucose [Mass/volume] in Serum or Plasma [2345-7] 03/31/2025 03:02 PM 320 mg/dL N Blood chemistry[[id number]] Glucose [Mass/volume] in Serum or Plasma [2345-7] 03/31/2025 05:07 PM 483 mg/dL N Blood chemistry[[id number]] Glucose [Mass/volume] in Serum or Plasma [2345-7] 03/31/2025 10:51 AM 413 mg/dL N Blood chemistry[[id number]] Glucose [Mass/volume] in Serum or Plasma [2345-7] 03/31/2025 12:44 PM 447 mg/dL N Blood chemistry[[id number]] Glucose [Mass/volume] in Serum or Plasma [2345-7] 03/31/2025 06:12 PM 347 mg/dL N Blood chemistry[[id number]] Glucose [Mass/volume] in Serum or Plasma [2345-7] 03/30/2025 05:13 PM 456 mg/dL N Blood chemistry[[id number]] Glucose [Mass/volume] in Serum or Plasma [2345-7] 03/30/2025 10:43 AM 450 mg/dL N Blood chemistry[[id number]] Glucose [Mass/volume] in Serum or Plasma [2345-7] 03/30/2025 01:01 PM 407 mg/dL N Blood chemistry[[id number]] Glucose [Mass/volume] in Serum or Plasma [2345-7] 03/29/2025 12:39 PM 400 mg/dL N Blood chemistry[[id number]] Glucose [Mass/volume] in Serum or Plasma [2345-7] 03/29/2025 11:30 AM 451 mg/dL N Blood chemistry[[id number]] Glucose [Mass/volume] in Serum or Plasma [2345-7] 03/29/2025 05:15 PM 506 mg/dL N Blood chemistry[[id number]] Glucose [Mass/volume] in Serum or Plasma [2345-7] 03/29/2025 01:28 PM 547 mg/dL N Blood chemistry[[id number]] Glucose [Mass/volume] in Serum or Plasma [2345-7] 03/28/2025 01:38 PM 400 mg/dL N Blood chemistry[[id number]] Glucose [Mass/volume] in Serum or Plasma [2345-7] 03/28/2025 12:30 PM 543 mg/dL N Blood chemistry[[id number]] Glucose [Mass/volume] in Serum or Plasma [2345-7] 03/27/2025 04:20 PM 400 mg/dL N Blood chemistry[[id number]] Glucose [Mass/volume] in Serum or Plasma [2345-7] 03/27/2025 05:24 PM 383 mg/dL N Blood chemistry[[id number]] Glucose [Mass/volume] in Serum or Plasma [2345-7] 03/27/2025 10:30 AM 441 mg/dL N Blood chemistry[[id number]] Glucose [Mass/volume] in Serum or Plasma [2345-7] 03/27/2025 02:22 PM 354 mg/dL N Blood chemistry[[id number]] Glucose [Mass/volume] in Serum or Plasma [2345-7] 03/26/2025 03:17 PM 400 mg/dL N Blood chemistry[[id number]] Glucose [Mass/volume] in Serum or Plasma [2345-7] 03/26/2025 10:24 AM 284 mg/dL N Blood chemistry[[id number]] Glucose [Mass/volume] in Serum or Plasma [2345-7] 03/26/2025 05:13 PM 519 mg/dL N Blood chemistry[[id number]] Glucose [Mass/volume] in Serum or Plasma [2345-7] 03/26/2025 12:22 PM 381 mg/dL N Blood chemistry[] Glucose [Mass/volume] in Serum or Plasma [2345-7] 03/25/2025 05:40 PM 387 mg/dL N Blood chemistry[] Glucose [Mass/volume] in Serum or Plasma [2345-7] 03/25/2025 03:11 PM 314 mg/dL N Blood chemistry[[id number]] Glucose [Mass/volume] in Serum or Plasma [2345-7] 03/25/2025 08:05 AM 471 mg/dL N Blood chemistry[] Glucose [Mass/volume] in Serum or Plasma [2345-7] 03/24/2025 03:08 PM 389 mg/dL N Blood chemistry[] Glucose [Mass/volume] in Serum or Plasma [2345-7] 03/24/2025 11:20 AM 383 mg/dL N Blood chemistry[[id number]] Glucose [Mass/volume] in Serum or Plasma [2345-7] 03/24/2025 06:54 PM 302 mg/dL N Blood chemistry[[id number]] Glucose [Mass/volume] in Serum or Plasma [2345-7] 03/24/2025 02:47 PM 403 mg/dL N Blood chemistry[] Glucose [Mass/volume] in Serum or Plasma [2345-7] 03/24/2025 07:29 AM 212 mg/dL N Blood chemistry[[id number]] Glucose [Mass/volume] in Serum or Plasma [2345-7] 03/23/2025 05:34 PM 297 mg/dL N Blood chemistry[] Glucose [Mass/volume] in Serum or Plasma [2345-7] 03/23/2025 10:52 AM 269 mg/dL N Blood chemistry[[id number]] Glucose [Mass/volume] in Serum or Plasma [2345-7] 03/23/2025 01:19 PM 333 mg/dL N Blood chemistry[[id number]] Glucose [Mass/volume] in Serum or Plasma [2345-7] 03/22/2025 04:50 PM 320 mg/dL N Blood chemistry[[id number]] Glucose [Mass/volume] in Serum or Plasma [2345-7] 03/22/2025 05:58 PM 295 mg/dL N Blood chemistry[[id number]] Glucose [Mass/volume] in Serum or Plasma [2345-7] 03/22/2025 10:45 AM 204 mg/dL N Blood chemistry[[id number]] Glucose [Mass/volume] in Serum or Plasma [2345-7] 03/22/2025 01:01 PM 294 mg/dL N Blood chemistry[[id number]] Glucose [Mass/volume] in Serum or Plasma [2345-7] 03/21/2025 01:35 PM 400 mg/dL N Blood chemistry[[id number]] Glucose [Mass/volume] in Serum or Plasma [2345-7] 03/21/2025 05:10 PM 321 mg/dL N Blood chemistry[[id number]] Glucose [Mass/volume] in Serum or Plasma [2345-7] 03/21/2025 10:36 AM 356 mg/dL N Blood chemistry[[id number]] Glucose [Mass/volume] in Serum or Plasma [2345-7] 03/21/2025 01:14 PM 278 mg/dL N Blood chemistry[[id number]] Glucose [Mass/volume] in Serum or Plasma [2345-7] 03/20/2025 02:11 PM 384 mg/dL N Blood chemistry[[id number]] Glucose [Mass/volume] in Serum or Plasma [2345-7] 03/20/2025 10:41 AM 309 mg/dL N Blood chemistry[[id number]] Glucose [Mass/volume] in Serum or Plasma [2345-7] 03/20/2025 11:15 AM 352 mg/dL N Blood chemistry[[id number]] Glucose [Mass/volume] in Serum or Plasma [2345-7] 03/19/2025 01:21 PM 400 mg/dL N Blood chemistry[[id number]] Glucose [Mass/volume] in Serum or Plasma [2345-7] 03/19/2025 04:59 PM 252 mg/dL N Blood chemistry[[id number]] Glucose [Mass/volume] in Serum or Plasma [2345-7] 03/19/2025 10:13 AM 226 mg/dL N Blood chemistry[[id number]] Glucose [Mass/volume] in Serum or Plasma [2345-7] 03/19/2025 12:23 PM 204 mg/dL N Blood chemistry[[id number]] Glucose [Mass/volume] in Serum or Plasma [2345-7] 03/18/2025 05:01 PM 202 mg/dL N Blood chemistry[[id number]] Glucose [Mass/volume] in Serum or Plasma [2345-7] 03/18/2025 11:19 AM 251 mg/dL N Blood chemistry[[id number]] Glucose [Mass/volume] in Serum or Plasma [2345-7] 03/18/2025 05:22 PM 217 mg/dL N Allergies, adverse reactions, alerts No known allergies and adverse reactions Medications Medication Instructions Route Dosage Frequency Start Date Stop Date Indications Status amiodarone 400 mg tablet (amiodarone) 1 tab, oral, Once A Day oral 1.0 1.0 d 2024 Active Daily-Ciarra (with folic acid) (multivitami n with folic acid) 400 mcg tablet (Daily-Ciarra (with folic acid) (multivitami n with folic acid)) 1 tab, oral, Once A Day, TI for Niva Plus oral 1.0 1.0 d 2024 Active GenTeal Tears Severe(elvia lat) (white petrolatum-m ineral oil) 94-3 % ointment (GenTeal Tears Severe(elvia lat) (white petrolatum-m ineral oil)) 1 neelima, both eyes, At Bedtime 1.0 2024 Active bumetanide 1 mg tablet (bumetanide) 1 tab, oral, Once A Day - PRN, Resident went to Dr. Francis this am. New orders to continue daily weights and decrease Bumex to 3 mg 1 tab PO BID. Take extra 1 mg tab PRN of weight gain of 2 lbs a day or 5 lbs in one week. Please report weight gain of 3 lbs / day or 5/ lbs a week. Repeat BNP and cbc in 1 week. NHCP notified. Charge to notify family. oral 1.0 1.0 d 2024 Active bumetanide 1 mg tablet (bumetanide) 3 tabs (3 mg), oral, Twice A Day, may give 1mg extra if 2 lbs gain in one day or 5 lbs in one week, report weight gain of 3 lbs/day or 5 lbs/ week oral 1.0 12.0 h 2024 Active Eliquis (apixaban) 5 mg tablet (Eliquis (apixaban)) 1 tab, oral, Twice A Day oral 1.0 12.0 h 03/22 Active Gold Castillo Medicated Body (menthol) 0.8 % powder (Gold Castillo Medicated Body (menthol)) as directed, topical, Every Shift, Cleanse abdominal folds ensuring completely dry then apply to entire abdominal folds and under arm q shift topical 1.0 8.0 h 2024 Active insulin aspart U-100 100 unit/mL (3 mL) insulin pen (insulin aspart U-100) 15 units, subcutaneous, Once - One Time subcutaneous 1.0 04/02 Active insulin aspart U-100 100 unit/mL (3 mL) insulin pen (insulin aspart U-100) 45, subcutaneous, With Meals subcutaneous 1.0 04/05 Active insulin degludec 100 unit/mL (3 mL) insulin pen (insulin degludec) 105, subcutaneous, At Bedtime subcutaneous 1.0 04/05 Active brimonidine 0.2 % drops (brimonidine ) 1 drop, ophthalmic (eye), Twice A Day, both eyes 1.0 12.0 h 04/03 Active insulin aspart U-100 100 unit/mL (3 mL) insulin pen (insulin aspart U-100) 60, subcutaneous, With Meals subcutaneous 1.0 2024 Active insulin degludec 100 unit/mL (3 mL) insulin pen (insulin degludec) 120, subcutaneous, At Bedtime subcutaneous 1.0 2024 Active Ozempic (semaglutide ) 2 mg/dose (8 mg/3 mL) pen injector (Ozempic (semaglutide )) 2mg, subcutaneous, Once A Day on Wed subcutaneous 1.0 1.0 d 2024 Active Vital Signs Date Vital Result Comment 03/18/2025 11:03 PM Oxygen Saturation (60431-9) 95 % 03/19/2025 06:15 AM Body Weight (27902-1) 288.6 [lb_av ] Body Mass Index (18672-3) 39.14 kg/m2 03/19/2025 10:47 AM Oxygen Saturation (10650-4) 99 % 03/20/2025 12:07 AM Oxygen Saturation (37416-7) 98 % 03/20/2025 07:25 AM Temperature (8310-5) 98.2 [degF] 03/20/2025 07:21 AM Oxygen Saturation (16134-8) 97 % 03/21/2025 08:21 AM Temperature (8310-5) 98.1 [degF] Oxygen Saturation (39423-9) 98 % Respiratory Rate (9279-1) 15 /min Heart Rate (8867-4) 76 /min Blood Pressure Systolic (8480-6) 102 mm[Hg] Blood Pressure Diastolic (8462-4) 58 mm[Hg] 03/21/2025 07:15 AM Temperature (8310-5) 98.6 [degF] 03/21/2025 07:14 AM Body Weight (67826-4) 287 [lb_av] Body Mass Index (96701-6) 38.92 kg/m2 03/22/2025 07:33 AM Oxygen Saturation (45649-9) 98 % 03/22/2025 07:02 AM Temperature (8310-5) 98.5 [degF] 03/23/2025 07:20 AM Temperature (8310-5) 97.8 [degF] 03/23/2025 02:44 PM Oxygen Saturation (86331-2) 96 % 03/24/2025 08:55 AM Oxygen Saturation (77267-2) 95 % 03/24/2025 01:30 AM Oxygen Saturation (60560-0) 96 % 03/24/2025 11:01 PM Oxygen Saturation (89628-6) 95 % 03/25/2025 09:12 AM Oxygen Saturation (77159-9) 98 % 03/25/2025 11:41 PM Oxygen Saturation (01316-7) 95 % 03/25/2025 05:20 PM Temperature (8310-5) 98 [degF] 03/26/2025 12:25 PM Oxygen Saturation (85447-0) 98 % 03/26/2025 09:18 PM Oxygen Saturation (34229-0) 97 % 03/27/2025 08:21 AM Oxygen Saturation (00464-7) 98 % 03/27/2025 07:38 AM Temperature (8310-5) 98.1 [degF] 03/27/2025 04:32 PM Temperature (8310-5) 97.8 [degF] 03/27/2025 06:37 PM Oxygen Saturation (41107-3) 97 % 03/28/2025 09:47 AM Body Weight (58619-8) 287 [lb_av] Body Mass Index (08101-9) 38.92 kg/m2 03/28/2025 09:46 AM Temperature (8310-5) 97.7 [degF] Oxygen Saturation (43852-5) 99 % Respiratory Rate (9279-1) 15 /min Heart Rate (8867-4) 108 /min Blood Pressure Systolic (8480-6) 110 mm[Hg] Blood Pressure Diastolic (8462-4) 58 mm[Hg] 03/29/2025 07:28 AM Temperature (8310-5) 98 [degF] 03/29/2025 07:26 AM Oxygen Saturation (45820-0) 99 % 03/28/2025 11:42 PM Oxygen Saturation (54374-3) 97 % 03/29/2025 03:36 PM Temperature (8310-5) 98.2 [degF] 03/29/2025 07:44 PM Oxygen Saturation (45567-3) 97 % 03/30/2025 07:01 AM Temperature (8310-5) 98.6 [degF] 03/30/2025 07:00 AM Oxygen Saturation (33180-9) 100 % 03/31/2025 12:12 AM Oxygen Saturation (17639-4) 95 % 03/31/2025 06:45 AM Temperature (8310-5) 98.4 [degF] 03/31/2025 06:43 AM Oxygen Saturation (47810-7) 99 % 03/31/2025 11:44 PM Oxygen Saturation (74252-8) 95 % 04/01/2025 07:14 AM Oxygen Saturation (85562-6) 98 % 04/01/2025 08:28 PM Oxygen Saturation (29788-4) 95 % 04/02/2025 11:27 AM Oxygen Saturation (05427-7) 99 % 04/02/2025 11:34 AM Body Weight (22267-8) 287 [lb_av] Body Mass Index (53288-5) 38.92 kg/m2 04/02/2025 08:07 PM Oxygen Saturation (83214-0) 93 % 04/03/2025 07:02 AM Temperature (8310-5) 98.6 [degF] 04/03/2025 07:21 AM Oxygen Saturation (33350-5) 98 % 04/04/2025 08:05 AM Respiratory Rate (9279-1) 18 /min Heart Rate (8867-4) 103 /min Blood Pressure Systolic (8480-6) 137 mm[Hg] Blood Pressure Diastolic (8462-4) 55 mm[Hg] 04/04/2025 08:04 AM Oxygen Saturation (89619-9) 98 % 04/04/2025 07:05 AM Body Weight (10393-3) 283 [lb_av] Body Mass Index (83416-4) 38.38 kg/m2 04/04/2025 07:07 AM Temperature (8310-5) 98 [degF] 04/04/2025 08:14 PM Respiratory Rate (9279-1) 18 /min 04/04/2025 08:16 PM Oxygen Saturation (03615-9) 97 % 04/04/2025 08:13 PM Temperature (8310-5) 96.2 [degF] Heart Rate (8867-4) 65 /min 04/04/2025 08:15 PM Blood Pressure Systolic (8480-6) 1 23 mm[Hg] Blood Pressure Diastolic (8462-4) 67 mm[Hg] 04/05/2025 06:56 AM Oxygen Saturation (61713-2) 100 % 04/05/2025 03:49 PM Temperature (8310-5) 97.5 [degF] 04/05/2025 07:42 PM Oxygen Saturation (30731-1) 95 % Social History No smoking Hx information available Encounters Type CPT Code Date Location Provider Indication s encounter report 02/24/2024 05:2 5 PM - 02/09/2025 11:54 AM Chris Parker DO encounter report 02/24/2024 05:2 5 PM - 03/13/2025 05:16 AM Chris Parker DO
--- OUTSIDE RECORDS SUMMARY | 2025-04-06 05:17 | XMS_ITS | Encounter Summary ---
Author Organization [facility] Address [address] [place] [address] Care Team Providers Care Training Engineer Name Role Phone Cuba Solano MD Primary Care Provider [phone] Encounter Details Date Type Department Care Team (Latest Contact Info) Description 02/19/1998 Outpatient Historical [facility] Moi George MD [address] [place] [address] Benign joe lg bowel (Primary Dx); Unspecified hemorrhoids 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 Social History Tobacco Use Types Packs/Day Years Used Date Smoking Tobacco: Never Assessed Sex and Gender Information Value Date Recorded Sex Assigned at Not on file 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
--- OUTSIDE RECORDS SUMMARY | 2025-04-06 05:17 | XMS_ITS | Encounter Summary ---
Author Organization [facility] Address [address] [place] [address] Care Team Providers Care Aerobics Instructor Name Role Phone Cuba Solano MD Primary Care Provider [phone] Encounter Details Date Type Department Care Team (Latest Contact Info) Description 07/08/1998 Outpatient Historical [facility] [place] [address] [address] Donte Borrego MD NO ADDRESS ON FILE Acute infection of pinna (Primary Dx); Acute perichondritis pinna; Malaise and fatigue; Other specified disorders of liver Social History Tobacco Use Types Packs/Day Years Used Date Smoking Tobacco: Never Assessed Sex and Gender Information Value Date Recorded Sex Assigned at Not on file 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
--- OUTSIDE RECORDS SUMMARY | 2025-04-06 05:17 | XMS_ITS | Encounter Summary ---
Author Organization [facility] Address [address] [place] [address] Care Team Providers Care Manager Adult Name Role Phone Cuba Solano MD Primary Care Provider [phone] Encounter Details Date Type Department Care Team (Latest Contact Info) Description 01/29/1998 Outpatient Historical [facility] [place] [id number] [address] Donte Borrego MD NO ADDRESS ON FILE Unspecified suppurative otitis media (Primary Dx) Social History Tobacco Use Types Packs/Day Years Used Date Smoking Tobacco: Never Assessed Sex and Gender Information Value Date Recorded Sex Assigned at Not on file 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
--- OUTSIDE RECORDS SUMMARY | 2025-04-06 05:17 | XMS_ITS | Clinical Summary ---
Author Organization [facility] Address [address] [place]: [place] [address] Care Team Providers Care Glass Mould Cleaner Name Role Phone Cuba Solano MD Primary Care Provider [phone] [phone] Allergies Active Allergy Reactions Criticality Noted Date [...] perm 1 /6 mo). 1 Each 0 5 Active allopurinoL (ZYLOPRIM) 300 mg tablet 400 mg. 5 Active albuterol (PROVENTIL,FRANKLIN ADDISON) 2.5 mg /3 mL (0.083 %) Solution for Nebulization 5 Active Tylenol Extra Strength 500 mg tablet 500 mg. 4 Active amiodarone (CORDARONE) 400 mg Tablet 400 mg. 5 Active atorvastatin (LIPITOR) 20 mg tablet 20 mg. 4 Active brimonidine (ALPHAGAN) 0.2 % solution 1 Drop. 5 Active brinzolamide (AZOPT) 1 % suspension 5 Active bumetanide (BUMEX) 2 mg tablet 2 mg. 5 Active bumetanide (BUMEX) 1 mg tablet 1 MG, = 1 TAB, PO, BID, # 60 TAB, Pharmacy: [facility] [place], 182, cm, 11/22/23 19:48:00 CDT, Height CM, 179.3, KG, 11/30/23 5:21:00 CDT, Weight KG 4 Active cholecalciferol, vitamin D3, 1,000 unit Take 1,000 Tablets by mouth daily. Active diclofenac sodium (VOLTAREN) 1 % gel 1 Gram. 3 Active dilTIAZem (CARDIZEM CD, CARTIA XT) 180 mg Controlled Delivery 24 hour capsule 180 mg. 5 Active Eliquis 5 mg tablet 5 mg. 5 Active esomeprazole (NexIUM) 40 mg Capsule, Delayed Release(E.C.) 40 mg. 5 Active HYDROcodone-acet aminophen (NORCO) 5-325 mg tablet 1 Tablet. 3 Active insulin aspart U-100 (NovoLOG) 100 unit/mL pen syringe 5 Active latanoprost (XALATAN) 0.005 % solution 1 Drop. 5 Active lidocaine (LIDODERM) 5 % Adhesive Patch, Medicated 5 Active linezolid (ZYVOX) 600 mg tablet 600 mg. 5 Active metoclopramide HCl (REGLAN) 10 mg tablet 10 mg. 5 Active metoprolol tartrate (LOPRESSOR) 100 mg tablet 100 mg. 4 Active montelukast (SINGULAIR) 10 mg tablet 10 mg. 4 Active Breztri Aerosphere 160 mcg-9mcg-4.8mcg/ actuation HFA aerosol inhaler Take 2 Puffs by inhalation 2 times daily. Active Simbrinza 1-0.2 % Drops, Suspension 1 Drop. 4 Active Adults 50 Plus 0.4 mg-300 mcg- 250 mcg Tablet per tablet 5 Active pregabalin (LYRICA) 50 mg Capsule Take 1 capsule 3 times a day by oral route for 30 days. 4 Active Ozempic 1 mg/dose (4 mg/3 mL) Pen Injector 5 Active sennosides (SENOKOT) 8.6 mg tablet 8.6 mg. 4 Active spironolactone (ALDACTONE) 50 mg tablet 50 mg. 5 Active triamcinolone acetonide (KENALOG) 0.1 % Cream 5 Active linaCLOtide (LINZESS) 290 mcg capsule Take 1 Capsule (290 mcg) by mouth daily before breakfast. 30 Capsule 11 5 Active furosemide (LASIX) 80 mg tablet 80 mg. 5 Active HYDROXYETHYLCELL ULOSE, BULK, MISC every 6 hours as needed. Active magnesium hydroxide (HEALY MILK OF MAGNESIA ORAL) 30 mL. 4 Active metOLazone (ZAROXOLYN) 5 mg tablet 5 mg. 5 Active oxyBUTYnin (DITROPAN) 5 mg tablet 5 mg. 5 Active bisacodyL (DULCOLAX) 5 mg Delayed Release tablet Take 5 mg by mouth 1 time daily as needed for Constipation. Active fluticasone propionate (FLONASE) 50 mcg/spray Frederic, Suspension nasal inhaler Administer 2 Sprays in each nostril daily. Active predniSONE (DELTASONE) 20 mg tablet Take 20 mg by mouth daily. Active insulin degludec (Tresiba FlexTouch U-100) 100 unit/mL pen syringe Inject by subcutaneous injection daily at bedtime. Active potassium CHLORIDE (K-TAB) 20 mEq Extended Release tabletIndication s:Hypokalemia Take 1 Tablet (20 mEq) by mouth 2 times daily with meals. 60 Tablet 1 5 Active Active Problems Problem Noted Date Diagnosed [...] Encounters Date Type Department Care Team Description 03/20/2025 External Device Data [facility] ABSTRACTION Provider, Abstract 03/16/[address] [place] [address] Kat Vyas, RN 03/14/[address] [address] Becki Falcon NP Medical records request 03/02/[address] [address] Kat Vyas, NILES 03/02/[address] [address] Kat Vyas RN 03/01/[address] [address] Becki Falcon NP fax notes/CADEN request/scopes 02/28/2025 External Device Data ST[facility] ABSTRACTION Provider, Abstract 02/27/2025 External Device Data [facility] ABSTRACTION Provider, Abstract 02/27/2025 External Device Data [facility] ABSTRACTION Provider, Abstract 02/27/2025 External Device Data [facility] ABSTRACTION Provider, Abstract 02/27/[address] [address] Becki Falcon NP Documentation 02/23/[address] [address] Becki Falcon NP Results 02/23/2025 External Device Data STL ABSTRACTION Provider, Abstract 02/23/2025 Results Follow-Up [address] [place] [address] Becki Falcon NP CBC WITH DIFFERENTIAL, FERRITIN, IRON, TIBC, AND PERCENT SATURATION, Additional followed-up results: 12 02/22/2025 10:30 AM CDT Office Visit [facility] [phone] Becki Falcon, NISHA Abdominal pain, unspecified abdominal location (Primary Dx); Anemia, chronic disease; Anasarca; Hepatomegaly; Postprandial abdominal pain in left upper quadrant 02/05/2025 Orders Only [address] [phone] Chris Parker DO Abdominal pain, unspecified abdominal [...] on file 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 [place] [address] Becki Falcon NP [address] [facility] [address] [place] [address] Health Maintenance Due Date Last [...] CDT) ALLERGEN BEEF <0.10 kU/L [facility], ALLERGEN BEEF (F27) CLASS 0 [facility], CARTAGENA (F88) IGE <0.10 kU/L [facility], ALLERGEN CARTAGENA (F88) CLASS 0 [facility], ALLERGEN PORK <0.10 kU/L [facility], ALLERGEN PORK (F26) CLASS 0 [facility], GALACTOSE - ALPHA -1, 3 - GALACTOSE, IGE <0.10 <0.10 kU/L [facility], Comment: Results above 0.1 kU/L indicate an allergen-specific IgE sensitization to recdfdbog-x-1,3-galactose, and such patients are at risk for [...] method. Additional information can be found at http://www.[employer] ALLERGY PANEL INTERP [facility], Comment: Specific Level of Allergen IGE Class [...] analytical performance characteristics have been determined by [facility]. It has not been cleared or approved by the U.S. Food and Drug Administration. This assay has been validated pursuant to the CLIA regulations and is used for clinical purposes. FASTING:NO FASTING: NO Test Performed at: [facility], [address] [place] [address] Maddie Chino MD,PhD,KATIE [place] Blood 02/22/2025 12:1 8 PM CDT 02/22/2025 12:19 PM CDT Becki Falcon SURPLUS PROPERTY DISPOSAL AGENT CHEMISTRY ORDERABLES Final Resul t Performing Organization Address City/[facility]/ZIP Co de Phone Number [facility] [phone] [facility], [address] [place] [address] * TEST AUTHORIZATION (02/22/2025 12:18 PM CDT) TEST NAME COMPREHENSIVE METABOLIC [facility] TEST CODE [id number] [facility] CLIENT CONTACT NIKHIL Peck WNGLN [facility] SEE NOTE [facility] Comment: The laboratory testing on this patient was verbally requested or confirmed by the ordering physician or his or her authorized novelties sales representative after contact with an employee of [facility]. Federal regulations require that we maintain on file written authorization for all laboratory testing. Accordingly we are asking that the ordering physician or his or her authorized novelties sales representative sign a copy of this report and promptly return it to the client solutions manager. Signature: SEE NOTE [facility] Comment: Fax number: [phone] FASTING:NO FASTING: NO Test Performed at: [facility] [address] [place] [address] Sheila Harper MD 02/22/2025 12:1 8 PM CDT 02/22/2025 12:19 PM CDT Becki Falcon SURPLUS PROPERTY DISPOSAL AGENT CHEMISTRY ORDERABLES Final Resul t Performing Organization Address City/[facility] Co de Phone Number [facility] [phone] [facility] [address] [place] [address] * HEPATITIS B SURFACE ANTIGEN (02/22/2025 12:18 PM CDT) HEPATITIS B SURFACE AG NON-REACTI VE NON-REACTI VE [facility] Comment: For additional information, please refer to http://education.Oneexchangestreet/faq/VFR957 (This link is being provided for informational/ educational purposes only.) Test Performed at: [facility] [address] [place] [address] Sheila Harper MD Blood 02/22/2025 12:1 8 PM CDT 02/22/2025 12:19 PM CDT Becki Falcon SURPLUS PROPERTY DISPOSAL AGENT CHEMISTRY ORDERABLES Final Resul t Performing Organization Address [facility] Co de Phone Number [facility] [phone] [facility] [address] [place] [address] * TRANSGLUTAMINASE IGA ANTIBODY (02/22/2025 12:18 PM CDT) Pathologist [facility] TRANSGLUTAMINASE IGA AB <1.0 U/mL [facility] [place] Comment: Value Interpretation ----- <15.0 Antibody not detected > or = 15.0 Antibody detected FASTING:NO FASTING: NO Test Performed at: [facility] [address] Placido Tate Blood 02/22/2025 12:1 8 PM CDT 02/22/2025 12:19 PM CDT Becki Falcon SURPLUS PROPERTY DISPOSAL AGENT CHEMISTRY ORDERABLES Final Resul t Performing Organization Address [facility] Co de Phone Number [facility] [phone] [facility] [address] [place] [address] * (ABNORMAL) IRON, TIBC, AND PERCENT SATURATION (02/22/2025 12:18 PM CDT) Pathologist [facility] IRON 62 50 - 180 mcg/dL [facility] TIBC 422 250 - 425 mcg/dL (calc) [facility] IRON % SATURATION 15(L) 20 - 48 % (calc) [facility] Comment: Test Performed at: [facility] [address] [place] [address] Sheila Harper MD Blood 02/22/2025 12:1 8 PM CDT 02/22/2025 12:19 PM CDT Becki Falcon SURPLUS PROPERTY DISPOSAL AGENT CHEMISTRY ORDERABLES Final Resul t Performing Organization Address City/[facility]/ZIP Co de Phone Number [facility] [phone] [address] * HEPATITIS C ANTIBODY W REFLEX (02/22/2025 12:18 PM CDT) HEPATITIS C AB NON-REACTI VE NON-REACT CRISTIANO [facility] Comment: HCV antibody was non-reactive. There is no laboratory evidence of HCV infection. In most cases, no further action is required. However, if recent HCV exposure is suspected, a test for HCV RNA (test code 67618) is suggested. For additional information please refer to http://education.Oneexchangestreet/faq/STX29e6 (This link is being provided for informational/ educational purposes only.) Test Performed at: [facility] [address] [place] [address] Sheila Harper MD Blood 02/22/2025 12:1 8 PM CDT 02/22/2025 12:19 PM CDT Becki Falcon SURPLUS PROPERTY DISPOSAL AGENT CHEMISTRY ORDERABLES Final Resul t [facility] [phone] [facility] [address] [place] [address] * CERULOPLASMIN (02/22/2025 12:18 PM CDT) CERULOPLASMIN 29 14 - 30 mg/dL [facility] Comment: Test Performed at: [facility] [address] [place] [address] Sheila Harper MD Blood 02/22/2025 12:1 8 PM CDT 02/22/2025 12:19 PM CDT Becki Falcon SURPLUS PROPERTY DISPOSAL AGENT CHEMISTRY ORDERABLES Final Resul t [facility] [phone] [facility] [address] [place] [address] * (ABNORMAL) ALPHA 1 ANTITRYPSIN (02/22/2025 12:18 PM CDT) Pathologist [facility] ALPHA 1 ANTITRYPSIN 224(H) 83 - 199 mg/dL [facility] Comment: Test Performed at: [facility] [address] Sheila Harper MD Blood 02/22/2025 12:1 8 PM CDT 02/22/2025 12:19 PM CDT Becki Falcon SURPLUS PROPERTY DISPOSAL AGENT CHEMISTRY ORDERABLES Final Resul t Performing Organization Address [facility]/ZIP Co de Phone Number [facility] [phone] [facility] [address] [place] [address] * (ABNORMAL) CBC WITH DIFFERENTIAL (02/22/2025 12:18 PM CDT) Pathologist [facility] WBC 4.6 3.8 - 10.8 Thousand/u [...] Comment: FASTING:NO FASTING: NO Test Performed at: [facility] [address] [place] [address] Jose Rafael Mack Blood 02/22/2025 12:1 8 PM CDT 02/22/2025 12:19 PM CDT us Becki Falcon SURPLUS PROPERTY DISPOSAL AGENT HEMATOLOGY ORDERABLES Final Resu lt [facility] [phone] [facility] RR [address] [place] [address] * VITAMIN D 25 HYDROXY (02/22/2025 12:18 PM CDT) VITAMIN D, 25 OH, TOTAL 36 30 - 100 ng/mL [facility] Comment: Vitamin D Status 25-OH Vitamin D: Deficiency: <20 ng/mL Insufficiency: 20 - 29 ng/mL Optimal: > or = 30 ng/mL For 25-OH Vitamin D testing on patients on D2-supplementation and patients for whom quantitation of D2 and D3 fractions is required, the [facility] 25-OH VIT D, (D2,D3), LC/MS/MS is recommended: order code 53446 (patients >2yrs). See Note 1 Note 1 For additional information, please refer to http://education.Rheti Inc/faq/HKY738 (This link is being provided for informational/ educational purposes only.) FASTING:NO FASTING: NO Test Performed at: [facility] [address] [place] [address] Sheila Harper MD Blood 02/22/2025 12:1 8 PM CDT 02/22/2025 12:19 PM CDT Becki Falcon SURPLUS PROPERTY DISPOSAL AGENT CHEMISTRY ORDERABLES Final Resul t [facility] [phone] [facility] [address] [place] [address] * (ABNORMAL) C-REACTIVE PROTEIN (02/22/2025 12:18 PM CDT) CRP 15.0(H) <8.0 mg/L [facility] Comment: FASTING:NO FASTING: NO Test Performed at: [facility] [address] [place] [address] Sheila Harper MD Blood 02/22/2025 12:1 8 PM CDT 02/22/2025 12:19 PM CDT us Becki Danielm SURPLUS PROPERTY DISPOSAL AGENT CHEMISTRY ORDERABLES Final Resul t Performing Organization Address [facility] Co de Phone Number [facility] [phone] [facility] [address] [facility] [place] [address] * ANKUR SCREEN W/REFLEX (02/22/2025 12:18 PM CDT) ANKUR SCREEN NEGATIVE NEGATIVE [facility] Comment: ANKUR IFA is a first line [...] AC-0: Negative International Consensus on ANKUR Patterns (https://doi.org/10.1515/uimi-5459-7846) For additional information, please refer to http://education.Rheti [employer]/faq/BPA690 (This link is being provided for informational/ educational purposes only.) FASTING:NO FASTING: NO Test Performed at: [facility] [address] [facility] [place] [address] Sheila Harper MD Blood 02/22/2025 12:1 8 PM CDT 02/22/2025 12:19 PM CDT Becki Falcon SURPLUS PROPERTY DISPOSAL AGENT CHEMISTRY ORDERABLES Final Resul t Performing Organization Address City/[facility]/ZIP Co de Phone Number [facility] [phone] [facility] [address] [facility] [place] [address] * (ABNORMAL) BRAIN NATRIURETIC PEPTIDE, BNP OR PROBNP (02/22/2025 12:18 PM CDT) PROBNP, N TERMINAL 1,063(H) <125 pg/mL [facility] Comment: FASTING:NO FASTING: NO Test Performed at: [facility] [address] [place] [address] Sheila Harper MD Blood 02/22/2025 12:1 8 PM CDT 02/22/2025 12:19 PM CDT Becki Falcon SURPLUS PROPERTY DISPOSAL AGENT CHEMISTRY ORDERABLES Final Resul t Performing Organization Address City/[facility]/ZIP Co de Phone Number [facility] [phone] [facility] [address] * FERRITIN (02/22/2025 12:18 PM CDT) Pathologist [facility] FERRITIN 30 24 - 380 ng/mL [facility] Comment: Test Performed at: [facility] [address] Sheila Harpre MD Blood 02/22/2025 12:1 8 PM CDT 02/22/2025 12:19 PM CDT Becki Falcon NP CHEMISTRY ORDERABLES Final Resul t Performing Organization Address [facility]/ZIP Co de Phone Number [facility] [phone] [facility] [address] * (ABNORMAL) COMPREHENSIVE METABOLIC PANEL (02/22/2025 12:18 PM CDT) Pathologist [facility] GLUCOSE 166(H) 65 - 139 mg/dL [facility] [...] Comment: FASTING:NO FASTING: NO Test Performed at: [facility] [address] [place] [address] hSeila Harper MD 02/22/2025 12:1 8 PM CDT 02/22/2025 12:19 PM CDT Becki Falcon SURPLUS PROPERTY DISPOSAL AGENT CHEMISTRY ORDERABLES Final Resul t [facility] [phone] [facility] [address] * ENDOSCOPY, SIGMOID (01/26/2020 12:00 AM CDT) Sgf Scanning GI PROCEDURE ORDERABLES Final Re sult from Last 3 Months or Most Recently Relevant to Health Maintenance Insurance MEDICARE PART A [place] B [place] Advance Directives For more information, please contact: [phone] Documents on File Type Date Recorded Patient Steel Inspector Expl anation Advance Directive POA 02/22/2025 10:00 AM Advance Directive POA Care Teams Glass Mould Cleaner Relationship Specialty Start Date End Date Cuba Solano MD PCP - General 07/11/09
--- OUTSIDE RECORDS SUMMARY | 2025-04-06 05:18 | XMS_ITS | Encounter Summary ---
Author Organization [facility] Address [address] [place] [address] Care Team Providers Care Manager Welding Name Role Phone Cuba Solano MD Primary Care Provider [phone] [phone] Encounter Details Date Type Department Care Team (Latest Contact Info) Description 12/02/2005 Outpatient Historical [facility] Family Medicine Angelica [facility] [address] [address] Huey Upton Jr., MD [address] [place] [address] [address] [facility] [address] [place] [address] DM w/o Complication Type II (CMS/HCC) (Primary Dx); Other and Unspecified Hyperlipidemia; Unspecified Essential Hypertension; Pain in Joint, Shoulder Region Social History Tobacco Use Types Packs/Day Years Used Date Smoking Tobacco: Never Assessed Sex and Gender Information Value Date Recorded Sex Assigned at Not on file 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
--- OUTSIDE RECORDS SUMMARY | 2025-04-06 05:18 | XMS_ITS | Encounter Summary ---
Author Organization [facility] Address [address] [place] [address] Care Team Providers Care Auto Body Detailer Name Role Phone Cuba Solano MD Primary Care Provider +1 [phone] Encounter Details Date Type Department Care Team (Latest Contact Info) Description 01/18/2006 [facility] 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
--- OUTSIDE RECORDS SUMMARY | 2025-04-06 05:18 | XMS_ITS | Encounter Summary ---
Author Organization [facility] Address [address] [place] [address] Care Team Providers Care Shift Mgr Name Role Phone Cuba Solano MD Primary Care Provider [phone] Encounter Details Date Type Department Care Team (Latest Contact Info) Description 10/21/[address] 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
--- OUTSIDE RECORDS SUMMARY | 2025-04-06 05:18 | XMS_ITS | Encounter Summary ---
Author Organization [facility] Address [address] [place] [address] Care Team Providers Care Prosthetics Lab Technician Name Role Phone Cuba Solano MD Primary Care Provider [phone] [phone] Encounter Details Date Type Department Care Team (Latest Contact Info) Description 11/25/2005 Outpatient Historical [facility]- [address] [place] 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
--- OUTSIDE RECORDS SUMMARY | 2025-04-06 05:18 | XMS_ITS | Encounter Summary ---
Author Organization [facility] Address [address] [place] [address] Care Team Providers Care Farmworker Fryer Farm Name Role Phone Cuba Solano MD Primary Care Provider +1 -[phone] Encounter Details Date Type Department Care Team (Late st Contact Info) Description 03/04/2005 Outpatient Historical [facility] Family Medicine [place] [id number] [address] Social History Tobacco Use Types Packs/Day Years Used Date Smoking Tobacco: Never Assessed Sex and Gender Information Value Date Recorded Sex Assigned at Not on file 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
--- OUTSIDE RECORDS SUMMARY | 2025-04-06 05:18 | XMS_ITS | Encounter Summary ---
Author Organization [facility] Address [address] [place] [address] Care Team Providers Care Abnormal Psychology Teacher Name Role Phone Cuba Solano MD Primary Care Provider +1 -[phone] Encounter Details Date Type Department Care Team (Latest Contact Info) Description 12/10/2004 Outpatient Historical [facility] Orthopedics- [address] [place] 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
--- OUTSIDE RECORDS SUMMARY | 2025-04-06 05:18 | XMS_ITS | Encounter Summary ---
Author Organization [facility] Address [address] [place] [address] Care Team Providers Care Vehicle Leasing And Rental Manager Name Role Phone Cuba Solano MD Primary Care Provider +1 -[phone] Encounter Details Date Type Department Care Team (Latest Contact Info) Description 03/16/2006 Outpatient Historical [facility] Orthopedics- [address] [place] [address] [place] [address] Ash Lopez III, MD [address] 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
--- OUTSIDE RECORDS SUMMARY | 2025-04-06 05:18 | XMS_ITS | Encounter Summary ---
Author Organization [facility] Address [address] [place] [address] Care Team Providers Care Assembly Machine Operator Name Role Phone Cuba Solano MD Primary Care Provider +1 -[phone] Encounter Details Date Type Department Care Team (Latest Contact Info) Description 01/12/2006 Outpatient Historical [facility] Orthopedics- [address] [place] 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
--- OUTSIDE RECORDS SUMMARY | 2025-04-06 05:18 | XMS_ITS | Encounter Summary ---
Author Organization [facility] Address [address] [place] [address] Care Team Providers Care Email Marketer Name Role Phone Cuba Solano MD Primary Care Provider +1 [phone] Encounter Details Date Type Department Care Team (Latest Contact Info) Description 08/28/2005 Outpatient Historical [facility] Family Medicine Angelica [facility] [address] [address] Huey Upton Jr., MD [address] [place] [address] [address] [facility] [address] [place] [address] Pain in Joint, Shoulder Region (Primary Dx); Lumbago Social History Tobacco Use Types Packs/Day Years Used Date Smoking Tobacco: Never Assessed Sex and Gender Information Value Date Recorded Sex Assigned at Not on file 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
--- OUTSIDE RECORDS SUMMARY | 2025-04-06 05:18 | XMS_ITS | Encounter Summary ---
Author Organization [facility] Address [address] [place] [address] Care Team Providers Care Rubber Flap Cutter Name Role Phone Cuba Solano MD Primary Care Provider +1 -[phone] Encounter Details Date Type Department Care Team (Late st Contact Info) Description 11/05/2005 Outpatient Historical [facility] Family Medicine [place] [id number] [address] Social History Tobacco Use Types Packs/Day Years Used Date Smoking Tobacco: Never Assessed Sex and Gender Information Value Date Recorded Sex Assigned at Not on file 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
--- OUTSIDE RECORDS SUMMARY | 2025-04-06 05:18 | XMS_ITS | Continuity of Care Document ---
Author Organization [facility] Aravind Barbo[facility], [place], [facility]) Address [address] [place] [address] Assessment No assessment recorded. Plan of Treatment [...] Modified By Organization Details Last Modified Time 03/22/2025 [id number] Admitted with sepsis and volume overload. Evaluated by hematology and not able to use steroids with volume issues. He is planning to go to [place] to hear options for for granulomatous disease affecting his liver. Sleep study soon. [email or web address] Not available 03/25/2025 15:23:44 Reason for Referral None Reported. Problems Name Problem SNOMED Code Status Onset Date Resolution Date Notes Provider Name and Address Organization Details Recorded Time Essential hypertens ion 20612061 Active 2007 ESSENTIAL HYPERTENS ION; 8 2:16PM by Karla Joseph LPN, Office Visit; Promoted; acuity set as *; Not Available [facility] 3 03:17:47 Allergic rhinitis 10869014 Active 2007 ALLERGIC RHINITIS; 8 2:16PM by Karla Joseph LPN, Office Visit; Promoted; acuity set as *; Not Available [facility] 3 03:17:47 Persisten t insomnia 373895104 Active 2007 PERSISTEN T INSOMNIA; 8 2:16PM by Karla Joseph LPN, Office Visit; Promoted; acuity set as *; Not Available [facility] 3 03:17:52 Fracture of ankle 48641137 Active 2007 Ankle Fracture; 8 2:16PM by Karla Joseph LPN, Office Visit; Promoted; acuity set as *; Not Available [facility] 3 03:17:53 Peptic ulcer 55954234 Active 2007 PEPTIC ULCER; 8 2:16PM by Karla Joseph LPN, Office Visit; Promoted; acuity set as *; Not Available [facility] 3 03:17:53 Type 1 diabetes mellitus 08312292 Active 2007 DIABETES MELLITUS TYPE I; 8 2:16PM by Karla Joseph LPN, Office Visit; Promoted; acuity set as *; Not Available [facility] 3 03:17:58 Constipat ion 84049704 Active 2007 CONSTIPAT ION; 8 2:16PM by Karla Joseph LPN, Office Visit; Promoted; acuity set as *; Not Available [facility] 3 03:17:58 Amputated above knee 716432848 Active 2007 ABOVE KNEE AMPUTATIO N STATUS; 8 2:16PM by Karla Joseph LPN, Office Visit; Promoted; acuity set as *; Not Available [facility] 3 03:17:59 History of depressio n 564121334 Active 2007 DEPRESSIO N, NOS; 8 2:16PM by Karla Joseph LPN, Office Visit; Promoted; acuity set as *; Not Available [facility] 3 03:18:00 Hyperglyc emia due to type 2 diabetes mellitus 54125977251 9109 Active 2023 NATHANAEL tavarez [facility] 4 13:09:52 Chronic back pain greater than three months duration 48542963063 2 Active 2023 NATHANAEL tavarez [facility] 4 15:23:19 Blepharit is of right eyelid 56013837047 9103 Active 2024 NATHANAEL VICTORIA [facility] 5 15:11:18 Congestiv e heart failure 64926030 Active 2024 NATHANAEL VICTORIA [facility] 5 16:21:48 Acute right otitis media 012683425 Active 2024 [facility] 16:28:04 Pain of right shoulder joint 75673018403 555081 Active 2024 [facility] 17:59:42 Hepatospl enomegaly 29151758 Active 2024 NATHANAEL VICTORIA [facility] 14:35:12 Thrombocy topenic disorder 954587890 Active 2024 NATHANAEL VICTORIA [facility] 14:35:13 Bilateral lower limb edema 133568588 Active 2024 MARLON HADOMENIC [facility] 5 15:35:25 Acute urinary tract infection 546684643 Active 2024 NATHANAEL VICTORIA [facility] 14:32:57 Sarcoidos is 70455566 Active 2024 NATHANAEL VICTORIA [facility] 14:33:01 Problem Notes None recorded. Medical Equipment None Reported. Allergies Allergen ID Allergen Name Allergen Category Reaction Reaction Severity Criticality Documentation Date Start Date Code Code System Note Provider Name and Address Organization Details Recorded Time 71558 Product containin g penicilli n (product) medicatio n Not available Not available Not available 11/28/2022 80425 8001 SNOMED Comme nt: Recor ded 09/01 2:16P M by Briseida Joseph LPN, Offic e Visit ; Domingo rubio; Shruthi wade ce: *; ; Not Available [facility] 3 02:25:17 83666 Substance with sulfonami de structure and antibacte rial mechanism of action (substanc e) medicatio n Not available Not available Not available 03/22/2025 95914 8003 SNOMED Not Available david - External Data Service - prod 5 06:48:45 62402 sulfameth oxazole / trimethop rim medicatio n rash Not available [facility] 03/22/20252007 07896 RxNorm Not Available david [employer] External Data Service - prod 5 06:50:41 Medications Name Sig Start Date Stop Date [...] Recorded 8 2:43PM by Jory George CMT, Beeica l Summary; Refill Quantity: 0; Not Available [...] rate Respiratory rate Body temperature Oxygen saturation Systolic And Diastolic Provider Name and Address Organization Details Last Updated DateTime 5 525678. 01 g 76 /min 15 /min 98.1 [degF] 98 % 102/58 mm[Hg] NATHANAEL VICOTRIA [facility] [place] 5 14:29:59 Social History None recorded. Functional Status None recorded. Mental Status None recorded. Family History Nothing Reported. Medical History No medical history recorded. Immunizations Vaccine Type Date Status Note Provider Nam e and Address Organization Details Recorded Time influenza, unspecified formulation 8 completed Not Available [facility] 04/05/2025 12:29:13 Influenza, split virus, trivalent, preservative 0 completed Not Available [facility] 04/05/2025 12:29:13 COVID-19, mRNA, LNP-S, PF, 100 mcg/0.5mL dose or 50 mcg/0.25mL dose 1 completed Not Available [facility] 04/05/2025 12:29:13 COVID-19, mRNA, LNP-S, PF, 100 mcg/0.5mL dose or 50 mcg/0.25mL dose 1 completed Not Available [facility] 04/05/2025 12:29:13 Influenza, split virus, quadrivalent, PF 1 completed Not Available [facility] 04/05/2025 12:29:13 COVID-19, mRNA, LNP-S, PF, 100 mcg/0.5mL dose or 50 mcg/0.25mL dose 1 completed Not Available [facility] 04/05/2025 12:29:13 Influenza, split virus, quadrivalent, PF 2 completed Not Available [facility] 04/05/2025 12:29:13 Influenza, split virus, quadrivalent, PF 3 completed Not Available [facility] 04/05/2025 12:29:13 Influenza, split virus, trivalent, preservative 4 completed Not Available [facility] 04/05/2025 12:29:13 COVID-19, mRNA, LNP-S, PF, 50 mcg/0.5 mL 5 completed Not Available [facility] 04/05/2025 12:29:13 Past Encounters Encounter ID Performer Location Encounter Start Date Encounter Closed Date Diagnosis/Indication Diagnosis SNOMED-CT Code Diagnosis ICD10 Code Diagnosis IMO Codes Diagnosis Note [id number] SUSU FOUNTAIN PA-C [facility] [address] [place] [address] 02/21/2025 13:40:55 03/20/2025 07:29:37 Bilateral lower limb edema 184108178 R60.0 [id number] SPIRONALAC TONE 50MG QDBUMEX 3MG PO BID, ON LINZOLID for skin cellulitis .monitor BMP for cr and electrolyt es. [id number] Chris Parker DO [facility] ([facility]) [address] [place] [address] 02/26/2025 14:48:04 02/28/2025 08:09:20 Type 1 diabetes mellitus 42351156 E10.9 Congestive heart failure 46986273 I50.9 Essential hypertension 54675469 I10 Cirrhosis of liver 29250 007 K74.69 4392510 Chronic constipation 236 101704 K59.09 995915 [id number] Chris Parker DO [facility] ([facility]) [address] [place] [address] 03/22/2025 09:18:02 03/26/2025 11:28:18 Post-discharge follow-up 437767011 Z09 399121 Acute urin constance tract infection 463969626 N39.0 016362 Essential hypertension 62737073 I10 Congestive heart failure 37928161 I50.9 Hyperglyce jaleel due to type 2 diabetes mellitus 9527431017 33456 E11.65 Z79.4 Sarcoidosis 05428300 D86 .9 52957 Health Concerns Section Related Observation LastModified by Organization Detai ls LastModified Time None Recorded Concern Status LastModified by Organization Details LastModified Time None Recorded Payers Encounter Date Sequence Insurance Name Policy Number Policy Pate Covered Member ID Pate Member ID Guarantor Name 03/22/2025 1 [place] Marciano Alonso [id number] Marciano Alonso 03/22/2025 2 [place] Marciano Alonso [id number] Marciano Alonso Notes Date Note Type Note Provider Name and Address Organization Details Recorded Time 03/22/2025 text/html COPDReported by PatientHPI:For associated symptoms, patient reportsobesity. For onset/timing, patient reportsmultiple times per day. For duration, patient reportshas noted for years.ROS as noted in the [facility] ER follow up after hallucinatoins. Chris Parker DO [address] [place] [address], [address], [facility] 03/25/2025 15:23:56
--- OUTSIDE RECORDS SUMMARY | 2025-04-06 05:18 | XMS_ITS | Encounter Summary ---
Author Organization [facility] Address [address] [place] [address] Care Team Providers Care Architectural Practice Manager Name Role Phone Cuba Solano MD Primary Care Provider +1 -[phone] Encounter Details Date Type Department Care Team (Latest Contact Info) Description 02/06/2005 Outpatient Historical [facility] Family Medicine Angelica [facility] [address] [address] Huey Upton Jr., MD [address] [place] [address] [address] [facility] [address] [place] [address] HAIR DISEASES NEC (Primary Dx); DIABETES MELLITUS TYPE II-UNCOMPL (CMS/FORMERLY [facility]); Dysfunct eustachian tube; Vaccine for influenza Social History Tobacco Use Types Packs/Day Years Used Date Smoking Tobacco: Never Assessed Sex and Gender Information Value Date Recorded Sex Assigned at Not on file 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
--- OUTSIDE RECORDS SUMMARY | 2025-04-06 05:18 | XMS_ITS | Encounter Summary ---
Author Organization 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
--- OUTSIDE RECORDS SUMMARY | 2025-04-06 05:18 | XMS_ITS | Encounter Summary ---
Author Organization [facility] Address [address] [place] [address] Care Team Providers Care Theatre Instructor Name Role Phone Cuba Solano MD Primary Care Provider +1 -[phone] Encounter Details Date Type Department Care Team (Latest Contact Info) Description 07/30/2005 Outpatient Historical [facility] Family Medicine [place] [id number] [address] Keyona Mccloud, LUCIEN NO ADDRESS ON FILE Unspecified Otitis Media (Primary Dx) Social History Tobacco Use Types Packs/Day Years Used Date Smoking Tobacco: Never Assessed Sex and Gender Information Value Date Recorded Sex Assigned at Not on file 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
--- OUTSIDE RECORDS SUMMARY | 2025-04-06 05:18 | XMS_ITS | Encounter Summary ---
Author Organization [facility] Address [address] [place] [address] Care Team Providers Care Brain Surgeon Name Role Phone Cuba Solano MD Primary Care Provider +1 -[phone] Encounter Details Date Type Department Care Team (Latest Contact Info) Description 12/29/2005 Outpatient Historical [facility] [address] [place] [address] [facility] [address] [place] [address] Ash Lopez III, MD [address] [place] [address] Other Affections of Shoulder Region, not Elsewhere Classified (Primary Dx) Social History Tobacco Use Types Packs/Day Years Used Date Smoking Tobacco: Never Assessed Sex and Gender Information Value Date Recorded Sex Assigned at Not on file 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 Gender Identity Not on file Sexual [...] INTERFACE SYSTEM 12/29/2005 9:45 AM CDT Result [facility] Ash Lopez III, MD POINT OF CARE TESTING Final Result Performing Organization Address [facility] Phone Number INTERFACE SYSTEM Refer to clinic/hospital [...] CARE TESTING Final Result Performing Organization Address [facility] Phone Number INTERFACE SYSTEM Refer to clinic/hospital department * (ABNORMAL) POC GLUCOSE (12/29/2005 7:05 AM CDT) GLUCOSE POC 133(H) 60 - 100 mg/dL INTERFACE SYSTEM 12/29/2005 7:05 AM CDT Ash Lopez III, MD POINT OF CARE TESTING Final Result Performing Organization Address [facility] Phone Number INTERFACE SYSTEM Refer to clinic/hospital department documented in this encounter Visit Diagnoses Diagnosis Other affections of shoulder region, not elsewhere classified- Primary documented in this encounter Care Teams Brain Surgeon Relationship Specialty Start Date End Date Cuba Solano MD PCP - General 07/11/09 documented as of this encounter
--- OUTSIDE RECORDS SUMMARY | 2025-04-06 05:18 | XMS_ITS | Encounter Summary ---
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
--- OUTSIDE RECORDS SUMMARY | 2025-04-06 05:18 | XMS_ITS | Encounter Summary ---
Author Organization [facility] Address [address] [place] [address] Care Team Providers Care Mule Driver Name Role Phone Cuba Solano MD Primary Care Provider +1 -[phone] Encounter Details Date Type Department Care Team (Late st Contact Info) Description 02/02/2006 Outpatient Historical [facility] Family Medicine [place] [id number] [address] Social History Tobacco Use Types [...] on filedocumented in this encounter Care Teams Mule Driver Relationship Specialty Start Date End Date Cuba Solano MD PCP - General 07/11/09 documented as of this encounter
--- OUTSIDE RECORDS SUMMARY | 2025-04-06 05:18 | XMS_ITS | Encounter Summary ---
Author Organization [facility] Address [address] [place] [address] Care Team Providers Care Correspondence Section Supervisor Name Role Phone Cuba Solano MD Primary Care Provider [phone] Encounter Details Date Type Department Care Team (Latest Contact Info) Description 06/28/2006 Outpatient Historical [facility] Family Medicine [place] [id number] [address] [address] Keyona Mccloud, LUCIEN NO ADDRESS ON FILE Unspecified Otitis Media (Primary Dx); Acute Sinusitis, Unspecified Social History Tobacco Use Types Packs/Day Years Used Date Smoking Tobacco: Never Assessed Sex and Gender Information Value Date Recorded Sex Assigned at Not on file 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
--- OUTSIDE RECORDS SUMMARY | 2025-04-06 05:18 | XMS_ITS | Patient Health Record ---
Author Organization [facility] Address [address] [facility] [place] [address] Care Team Providers Care Log Inspector Name Role Phone EDI SAMUELS Unavailable [phone] Kain Marroquin Unavailable [phone] Allergies Allergen (clinical drug ingredient) Drug/Non Drug [...] Description: Age-related physical debility Testing performed at: [address] [place] [address] CLIA ID [id number] Diagnosis Description: Encounter for other preprocedural examination WBC 4.4 4.5-11.0 X10'3 RBC 3.33 4.50-5.90 X10'6 Hgb 9.6 13.5-17.5 G/DL Hct 28.9 41.0-53.0 % MCV 86.8 80.0-100.0 FL MCH 28.8 27.0-31.0 PG MCHC 33.2 31.0-37.0 G/DL Platelet 150 150-400 X10'3 RDW-SD 58.8 35.0-49.0 FL RDW-CV 18.3 12.2-15.6 % MPV 10.4 9.2-12.0 FL Neutro Auto% 68.9 40.0-70.0 % Lymph Auto% 12.0 22.0-44.0 % Lajas Auto% 13.3 3.0-7.0 % Eos Auto% 4.6 2.0-4.0 % Baso Auto% 0.5 0.0-1.0 % Imm Gran% .7 .0-.4 % Neutro Abs 3.00 .80-7.70 Absolute Neutrophil Count 3000 Lymph Abs .52 .10-4.10 Lajas Abs .58 .20-1.00 Eos Abs .20 .00-.40 Baso Abs .02 .00-.20 Imm Gran Abs .03 .00-.10 NRBC# .00 .00-.20 NRBC% .00 .00-.20 /100 intact WBC's Glucometer WBG Reviewed date:01/03/2025 04:50:43 PM Interpretation: Performing Lab: Notes/Report: Glucometer WBG 128 65-110 MG/DL Asymptomatic~Meter: [id number]~Auto Electrical Technician: [id number] EDI RATLIFF Testing performed at: [address] [place] [address] CLIA ID [id number] Glucometer WBG Reviewed date:01/03/2025 04:50:43 PM Interpretation: Performing Lab: Notes/Report: Glucometer WBG 118 65-110 MG/DL Asymptomatic~Meter: [id number]~Auto Electrical Technician: [id number] MARY BATES Testing performed at: [address] [place] [address] CLIA ID [id number] Reason For Referral No Information Medications Medication [...] W/U Status Risk Notes Problem Essential hypertension (33910847) Essential (primary) hypertension (I10) Active confirmed Problem Type II diabetes mellitus without complication (897682306) Type 2 diabetes mellitus without complication, unspecified whether terminal block assembler insulin use (E11.9) Active confirmed Problem Heart failure (00168310) Chronic congestive heart failure, unspecified heart failure type (I50.9) Active confirmed Problem COPD - Chronic obstructive pulmonary disease (10105258) Chronic obstructive pulmonary disease, unspecified COPD type (J44.9) Active confirmed Problem Postprocedural states (417509114) H/O transurethral destruction of bladder lesion (Z98.890) Active confirmed Problem Urgent desire to urinate (12871987) Urinary urgency (R39.15) Active confirmed Problem Advanced age (62353920) Advanced age (R54) Active confirmed Problem Urinary frequency (723061019) Urinary frequency (R35.0) Active confirmed Vital Signs [...] [facility] [address] [facility] [place] [address] 01/03/2025 EDI SAMUELS [facility] [address] [facility] [place] [address] 11/21/2024 Kain Marroquin Urinary frequency R3 5.0 ; Urinary urgency R39.15 and Weak urinary stream R39.12 [facility] [address] [facility] [place] [address] 12/27/2024 Kain Marroquin Pre-op testing Z01.8 18 ; Urinary frequency R35.0 ; Urinary urgency R39.15 and Weak urinary stream R39.12 [facility] [address] [facility] [place] [address] 01/22/2025 [facility] Urinary frequency R3 5.0 ; H/O transurethral destruction of bladder lesion Z98.890 ; Urinary urgency R39.15 and Weak urinary stream R39.12 [facility] [address] [facility] [place] [address] 11/02/2024 Kain Pearashil [facility] [address] [facility] [place] [address] 11/22/2024 Kain Pevril [facility] [address] [facility] [address] [facility] [place] [address] 12/25/2024 Kain Pevril [facility] [address] [facility] [place] [address] 12/26/2024 [facility] Pre-op testing Z01.8 18 ; Advanced age R54 ; Pre-procedure lab exam Z01.812 ; Preop cardiovascular exam Z01.810 ; Essential (primary) hypertension I10 ; Type 2 diabetes mellitus without complication, unspecified whether terminal block assembler insulin use E11.9 ; Chronic congestive heart failure, unspecified heart failure type I50.9 and Chronic obstructive pulmonary disease, unspecified COPD type J44.9 DO NOT USE THIS FACILITY [facility] [address] [facility] [address] [place], [place] [id number] 01/17/2025 [facility] Assessments Encounter Date Diagnosis (ICD Code) Assessment Notes Treatment Notes Treatment Clinical Notes Section Notes 01/22/2025 H/O transurethral destruction of bladder lesion [...] in need of presurgical labs, however, the courtesy bus driver is unable to take patient to [...] in need of presurgical labs, however, the courtesy bus driver is unable to take patient to [...] questions, and patient satisfied with plan. 12/26/2024 Pre-op testing (ICD-10 - Z01.818) 11/21/2024 Urinary urgency (ICD-10 - R39.15) We [...] at our clinic. 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 Continue flomax BID at this time. For now, and at this time, I am unable to assess if he is in retention or not. He is requesting pereira be placed and I am unable to even attempt this here at our clinic. I recommended that his [place] facility can try, but if unsuccessful, they [...] at our clinic. I recommended that his [place] facility can try, but if unsuccessful, they [...] and counseling patient was 55 minutes. 12/26/2024 Advanced age (ICD-10 - R54) 12/27/2024 [...] in need of presurgical labs, however, the courtesy bus driver is unable to take patient to [...] questions, and patient satisfied with plan. 01/22/2025 Urinary urgency (ICD-10 - R39.15) This [...] in need of presurgical labs, however, the courtesy bus driver is unable to take patient to [...] following surgery on the genitourinary system 12/26/2024 Pre-procedure lab exam (ICD-10 - Z01.812) 12/26/2024 Preop cardiovascular exam (ICD-10 - Z01.810) 12/26/2024 Essential (primary) hypertension (ICD-10 - I10) 12/26/2024 Type 2 diabetes mellitus without complication, unspecified whether group home insulin use (ICD-10 - E11.9) 12/26/2024 Chronic congestive heart failure, unspecified heart failure type (ICD-10 - I50.9) 12/26/2024 Chronic obstructive pulmonary disease, unspecified COPD type (ICD-10 - J44.9) 01/22/2025 Other # Urinary Retention/Frequen cy Order placed for indwelling Pereira catheter (18 Czech) to be inserted at snf. Catheter to be changed monthly. Discussed benefits of chronic catheter use for quality of life improvement versus risks of UTI and potential urethral erosion, especially given patient's hypospadias. Will coordinate with snf staff regarding catheter management. # Bladder Biopsy Follow-up Pathology results reviewed with patient - benign findings showing inflammation without malignancy. No further follow-up needed for this specific issue. # Fluid Retention/Hepatos plenomegaly Discussed coordination of care with primary team regarding planned paracentesis and liver/spleen biopsy. Suggested possibility of catheter placement during hospitalization if snf unable to place. # Follow-up Return to [...] the bathroom quickly or having accidents. The snf staff will place the catheter. They will [...] quality of life are significant. If the snf has trouble placing the catheter, we may [...] Basic Metabolic Panel 12/26/2024 Electrocardiogram, 12 Lead Tracing-37250 12/26/2024 Chest PA/Lat--08668 12/26/2024 Next Appt Details Provider Name:Kain Marroquin, 06/25/2025 02:00:00 PM, [address] [place], [address], Insurance Providers Payer Name Payer Address Payer Phone Subscriber Number Group Number Insured Name Patient Relationship to Insured Coverage Start Date Coverage End Date [place] [address] [address] [place], [place] [id number] GavinMarciano Self - patient is the insured [place] Medicaid [address] [place], [place] [id number] GloucesterMarciano bolden Self - patient is the insured Medical (General) History Medical History History ICD Code COPD Sleep apnea Hypertension CHF Type 2 Diabetes GERD glaucoma Surgical History Surgery Date(Month/Year) left leg 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
--- OUTSIDE RECORDS SUMMARY | 2025-04-06 05:18 | XMS_ITS | Continuity of Care Document ---
Author Organization [place] - Aravind Moncada [facility], [place], [facility]) Address [address] [facility] [place] [address] Assessment No assessment recorded. Plan of Treatment [...] By Organization Details Last Modified Time 02/08/2025 [id number] Planning to paracentesis today. Extremely abdominal swelling. Sugars too high, increase aspart to 60 units with meals. Planning to follow up next week. [email or web address] Not available 02/08/2025 14:32:28 Reason for Referral None Reported. Results Created Date Observation Date Name Description Value Unit Range Abnormal Flag Note LastModifiedBy Organization Detail LastModifiedTime 02/09/20 25 02/08/2025 imagi ng/di agnos tic resul t No observ ation record ed. [email or web address] [facility] [address] [place], [address], 02/12/2025 11:57:54 Result Notes None recorded. Problems Name Problem SNOMED Code Status Onset Date Resolution Date Notes Provider Name and Address Organization Details Recorded Time Essential hypertens ion 35215270 Active 2007 ESSENTIAL HYPERTENS ION; 8 2:16PM by Karla Joseph LPN, Office Visit; Promoted; acuity set as *; Not Available [facility] 3 03:17:47 Allergic rhinitis 80572379 Active 2007 ALLERGIC RHINITIS; 8 2:16PM by Karla Joseph LPN, Office Visit; Promoted; acuity set as *; Not Available [facility] 3 03:17:47 Persisten t insomnia 120881391 Active 2007 PERSISTEN T INSOMNIA; 8 2:16PM by Karla Joseph LPN, Office Visit; Promoted; acuity set as *; Not Available [facility] 3 03:17:52 Fracture of ankle 01827252 Active 2007 Ankle Fracture; 8 2:16PM by Karla Joseph LPN, Office Visit; Promoted; acuity set as *; Not Available [facility] 3 03:17:53 Peptic ulcer 07947407 Active 2007 PEPTIC ULCER; 8 2:16PM by Karla Joseph LPN, Office Visit; Promoted; acuity set as *; Not Available [facility] 3 03:17:53 Type 1 diabetes mellitus 92642307 Active 2007 DIABETES MELLITUS TYPE I; 8 2:16PM by Karla Joseph LPN, Office Visit; Promoted; acuity set as *; Not Available [facility] 3 03:17:58 Constipat ion 08456548 Active 2007 CONSTIPAT ION; 8 2:16PM by Karla Joseph LPN, Office Visit; Promoted; acuity set as *; Not Available [facility] 3 03:17:58 Amputated above knee 501571407 Active 2007 ABOVE KNEE AMPUTATIO N STATUS; 8 2:16PM by Karla Joseph LPN, Office Visit; Promoted; acuity set as *; Not Available [facility] 3 03:17:59 History of depressio n 443470023 Active 2007 DEPRESSIO N, NOS; 8 2:16PM by Karla Joseph LPN, Office Visit; Promoted; acuity set as *; Not Available [facility] 3 03:18:00 Hyperglyc emia due to type 2 diabetes mellitus 90753852738 9109 Active 2023 RASHEED [facility] 4 13:09:52 Chronic back pain greater than three months duration 41872780118 2 Active 2023 NATHANAEL tavarez, [facility] 4 15:23:19 Blepharit is of right eyelid 60297901408 9103 Active 2024 NATHANAEL tavarez, [facility] 5 15:11:18 Congestiv e heart failure 53736892 Active 2024 NATHANAEL tavarez, [facility] 5 16:21:48 Acute right otitis media 490666186 [facility] 16:28:04 Pain of right shoulder joint 17462009789 639942 Active 20[facility] 5 17:59:42 Hepatospl enomegaly 72874977 Active 2024 NATHANAEL VICTORIA [facility], [facility] 5 14:35:12 Thrombocy topenic disorder 617331393 Active 2024 NATHANAEL VICTORIA [facility] 5 14:35:13 Bilateral lower limb edema 504788683 Active 2024 [facility] 5 15:35:25 Acute urinary tract infection 309007302 Active 2024 NATHANAEL VICTORIA [facility] 5 14:32:57 Sarcoidos is 33092034 Active 2024 NATHANAEL VICTORIA [facility] 5 14:33:01 Problem Notes None recorded. Medical Equipment None Reported. Allergies Allergen ID Allergen Name Allergen Category Reaction Reaction Severity Criticality Documentation Date Start Date Code Code System Note Provider Name and Address Organization Details Recorded Time 31760 Product containin g penicilli n (product) medicatio n Not available Not available Not available 11/28/2022 82374 8001 SNOMED Comme nt: Recor ded 09/01 2:16P M by Briseida Joseph LPN, Offic e Visit ; Promo joanne; Shruthi wade ce: *; ; Not Available [facility] 3 02:25:17 47778 Substance with sulfonami de structure and antibacte rial mechanism of action (substanc e) medicatio n Not available Not available Not available 03/22/2025 49284 8003 SNOMED Not Available [employer] - prod 5 06:48:45 50605 sulfameth oxazole / trimethop rim medicatio n rash Not available [facility] 03/22/20252007 55862 RxNorm Not Available [employer] - prod 5 06:50:41 Medications [...] hrs prn for pain active 0; Recorded 05/02/200 8 2:23PM by Karla Joseph LPN, Office Visit; Not Available Not Available Not Available Vitals Date Recorded Body weight Heart rate Respiratory rate Body temperature Oxygen saturation Systolic And Diastolic Provider Name and Address Organization Details Last Updated DateTime 5 702223. 58 g 74 /min 20 /min 98 [degF] 96 % 143/72 mm[Hg] NATHANAEL VICTORIA [facility], [facility] 5 14:30:11 Social History None recorded. Functional Status None recorded. Mental Status None recorded. Family History Nothing Reported. Medical History No medical history recorded. Immunizations Vaccine Type Date Status Note Provider Nam e and Address Organization Details Recorded Time influenza, unspecified formulation 8 completed Not Available [facility] 04/05/2025 12:29:13 Influenza, split virus, trivalent, preservative 0 completed Not Available [facility] 04/05/2025 12:29:13 COVID-19, mRNA, LNP-S, PF, 100 mcg/0.5mL dose or 50 mcg/0.25mL dose 1 completed Not Available [facility] 04/05/2025 12:29:13 COVID-19, mRNA, LNP-S, PF, 100 mcg/0.5mL dose or 50 mcg/0.25mL dose 1 completed Not Available [facility] 04/05/2025 12:29:13 Influenza, split virus, quadrivalent, PF 1 completed Not Available [facility] 04/05/2025 12:29:13 COVID-19, mRNA, LNP-S, PF, 100 mcg/0.5mL dose or 50 mcg/0.25mL dose 1 completed Not Available [facility] 04/05/2025 12:29:13 Influenza, split virus, quadrivalent, PF 2 completed Not Available [facility] 04/05/2025 12:29:13 Influenza, split virus, quadrivalent, PF 3 completed Not Available [facility] 04/05/2025 12:29:13 Influenza, split virus, trivalent, preservative 4 completed Not Available [facility] 04/05/2025 12:29:13 COVID-19, mRNA, LNP-S, PF, 50 mcg/0.5 mL completed Not Available [facility] 04/05/2025 12:29:13 Past Encounters Encounter ID Performer Location Encounter Start Date Encounter Closed Date Diagnosis/Indication Diagnosis SNOMED-CT Code Diagnosis ICD10 Code Diagnosis IMO Codes Diagnosis Note [id number] Chris Parker DO [facility] ([facility]) [address] [place] [address] 01/11/2025 12:12:21 01/16/2025 10:56:12 Hyperglycemia due to type 2 diabetes mellitus 0004980814 58503 E11.65 Z79.4 [id number] Chris Parker DO [facility]) [address] [place] [address] 01/15/2025 12:18:30 01/17/2025 08:49:31 Type 1 diabetes mellitus 93038958 E10.9 Hepatosplenomegaly 24015 000 R16.2 89580 Pneumonia 691236105 J18. 9 2920543054 [id number] Chris Parker DO [facility] ([facility]) [address] [place] [address] 01/18/2025 09:41:48 01/23/2025 16:25:08 [id number] Chris Parker DO [facility] ([facility]) [address] [place] [address] 01/22/2025 15:25:32 01/24/2025 09:26:09 Congestive heart failure 55859165 I50.9 Type 1 brad betes mellitus 96651665 E10.9 Hepatosplenomegaly 42382 000 R16.2 06489 [id number] Chris Parker DO [facility] ([facility]) [address] [place] [address] 02/05/2025 14:15:56 02/06/2025 16:50:40 Hepatosplenomegaly 03543708 R16.2 80152 Ascites 470250006 R18.8 583763 Pancytopenia 022370575 D 61.818 19820 [id number] Chris Parker DO [facility] ([facility]) [address] [place] [address] 02/08/2025 13:43:34 02/13/2025 12:53:21 Hyperglycemia due to type 2 diabetes mellitus 9882332317 10985 E11.65 Z79.4 Hepatosplenomegaly 20944 000 R16.2 37021 Health Concerns Section Related Observation LastModified by Organization Detai ls LastModified Time None Recorded Concern Status LastModified by Organization Details LastModified Time None Recorded Payers Encounter Date Sequence Insurance Name Policy Number Policy Pate Covered Member ID Pate Member ID Guarantor Name 02/08/2025 1 [place] Marciano Alonso [id number] Marciano Alonso 02/08/2025 2 [place] Marciano Alonso [id number] Marciano Alonso Notes Date Note Type Note Provider Name and Address Organization Details Recorded Time 02/08/2025 text/html COPDReported by PatientHPI:For associated symptoms, patient reportsobesity. For onset/timing, patient reportsmultiple times per day. For duration, patient reportshas noted for years.ROS as noted in the HPI Planning to go for paracentesis. Chris Parker DO [address] [place] [address], [address], [facility], [place] 02/11/2025 17:17:58
--- OUTSIDE RECORDS SUMMARY | 2025-04-06 05:18 | XMS_ITS | Encounter Summary ---
Author Organization [facility] Address [address] [place] [address] Care Team Providers Care Environmental Remediation Specialist Name Role Phone Cuba Solano MD Primary Care Provider [phone] Encounter Details Date Type Department Care Team (Latest Contact Info) Description 12/03/2004 Outpatient Historical [facility] Orthoped[facility] [place] [address] Arcelia Lockhart, VIVIANE [address] [place] [address] LOC PRIM OSTEOART-L/LEG (Primary Dx) [...] documented in this encounter Care Teams Environmental Remediation Specialist Relationship Specialty Start Date End Date Cuba Solano MD PCP - General 07/11/09 documented as of this encounter
--- OUTSIDE RECORDS SUMMARY | 2025-04-06 05:18 | XMS_ITS | Encounter Summary ---
Author Organization [facility] Address [address] [place] [address] Care Team Providers Care Social Work Faculty Member Name Role Phone Cuba Solano MD Primary Care Provider +1 [phone] Encounter Details Date Type Department Care Team (Latest Contact Info) Description 04/17/2005 Outpatient Historical [facility] Angelica [facility] [address] [address] Huey Upton Jr., MD [address] [place] [address] 248 [facility] [address] [place] [address] ALLERGY, UNSPECIFIED (Primary Dx) Social History Tobacco Use Types Packs/Day Years Used Date Smoking Tobacco: Never Assessed Sex and Gender Information Value Date Recorded Sex Assigned at Not on file 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
--- OUTSIDE RECORDS SUMMARY | 2025-04-06 05:18 | XMS_ITS | Encounter Summary ---
Author Organization [facility] Address [address] [place] [address] Care Team Providers Care Senior Mechanical Design Engineer Name Role Phone Cuba Solano MD Primary Care Provider +1 [phone] Encounter Details Date Type Department Care Team (Latest Contact Info) Description 03/05/2006 Outpatient Historical [facility] Family Medicine [place] [id number] [address] Keyona Mccloud, LUCIEN NO ADDRESS ON FILE Unspecified Essential Hypertension (Primary Dx); Edema Social History Tobacco Use Types Packs/Day Years Used Date Smoking Tobacco: Never Assessed Sex and Gender Information Value Date Recorded Sex Assigned at Not on file 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
--- OUTSIDE RECORDS SUMMARY | 2025-04-06 05:18 | XMS_ITS | Encounter Summary ---
Author Organization [facility] Address [address] [place] [address] Care Team Providers Care Rental Representative Name Role Phone Cuba Solano MD Primary Care Provider +1 [phone] Encounter Details Date Type Department Care Team (Latest Contact Info) Description 12/26/2004 Outpatient Historical [facility] Angelica [facility] [address] [address] Huey Upton Jr., MD [address] [place] [address] 248 [facility] 140 [place] [address] IMPETIGO (Primary Dx) Social History Tobacco Use Types Packs/Day Years Used Date Smoking Tobacco: Never Assessed Sex and Gender Information Value Date Recorded Sex Assigned at Not on file 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
--- OUTSIDE RECORDS SUMMARY | 2025-04-06 05:18 | XMS_ITS | Encounter Summary ---
Author Organization [facility] Address [address] [place] [address] Care Team Providers Care Senior Research Manager Name Role Phone Cuba Solano MD Primary Care Provider +1 -[phone] Encounter Details Date Type Department Care Team (Latest Contact Info) Description 01/09/2005 Outpatient Historical [facility] Family [facility] Angelica [facility] [address] [address] Huey Upton Jr., MD [address] [place] [address] 248 [facility] 140 [place] [address] DERMATITIS NEC (Primary Dx) Social History Tobacco Use Types Packs/Day Years Used Date Smoking Tobacco: Never Assessed Sex and Gender Information Value Date Recorded Sex Assigned at Not on file 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
--- OUTSIDE RECORDS SUMMARY | 2025-04-06 05:19 | XMS_ITS | Encounter Summary ---
Author Organization [facility] Address [address] [place] [address] Care Team Providers Care Signal Tower Director Name Role Phone Cuba Solano MD Primary Care Provider +1 [phone] Encounter Details Date Type Department Care Team (Latest Contact Info) Description 06/11/2004 Outpatient Historical [facility] Angelica [facility] [address] [address] Huey Upton Jr., MD [address] [place] [address] 248 [facility] 140 [place] [address] DIABETES MELLITUS TYPE II-UNCOMPL (CMS/HCC) (Primary Dx); JOINT PAIN-L/LEG Social History Tobacco Use Types Packs/Day Years Used Date Smoking Tobacco: Never Assessed Sex and Gender Information Value Date Recorded Sex Assigned at Not on file 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
--- OUTSIDE RECORDS SUMMARY | 2025-04-06 05:19 | XMS_ITS | Encounter Summary ---
Author Organization [facility] Address [address] [place] [address] Care Team Providers Care Car Porter Name Role Phone Cuba Solano MD Primary Care Provider +1 [phone] Encounter Details Date Type Department Care Team (Latest Contact Info) Description 06/09/2006 Outpatient Historical [facility] [address] [place] [address] Ash Lopez III, MD [address] [facility] [address] [place] [address] Adhesive Capsulit Shlder (Primary Dx) Social History Tobacco Use Types Packs/Day Years Used Date Smoking Tobacco: Never Assessed Sex and Gender Information Value Date Recorded Sex Assigned at Not on file Legal Sex Male 2:49 AM ALLERGIST Gender Identity Not on file Sexual Orientation Not on file documented as of this encounter Plan of Treatment Not on file documented as of this encounter Visit Diagnoses Diagnosis Adhesive capsulit shlder- Primary Adhesive capsulitis of shoulder documented in this encounter Care Teams Car Porter Relationship Specialty Start Date End Date Cuba Solano MD PCP - General 07/11/09 documented as of this encounter
--- OUTSIDE RECORDS SUMMARY | 2025-04-06 05:19 | XMS_ITS | Continuity of Care Document ---
Author Organization MD - Aravind Moncada [facility], [place], [facility]) Address [address] [address] Assessment No assessment recorded. Plan of Treatment [...] By Organization Details Last Modified Time 02/12/2025 [id number] hospital records reviewed dehydrated from diarrhea; diuretics held no fluid on attempted paracentesis, but lots of fluid in skin of abdomen Not available 02/12/2025 15:44:23 Reason for Referral None Reported. Results Created Date Observation Date Name Description Value Unit Range Abnormal Flag Note LastModifiedBy Organization Detail LastModifiedTime 02/09/2002/08/2025 imagi ng/di agnos tic resul t No observ ation record ed. [email or web address] [facility] [address] [place], [address], 02/12/2025 11:57:54 Result Notes None recorded. Problems Name Problem SNOMED Code Status Onset Date Resolution Date Notes Provider Name and Address Organization Details Recorded Time Essential hypertens ion 80969464 Active 2007 ESSENTIAL HYPERTENS ION; 8 2:16PM by Karla Joseph LPN, Office Visit; Promoted; acuity set as *; Not Available [facility] 3 03:17:47 Allergic rhinitis 55242025 Active 2007 ALLERGIC RHINITIS; 8 2:16PM by Karla Joseph LPN, Office Visit; Promoted; acuity set as *; Not Available [facility] 3 03:17:47 Persisten t insomnia 310447088 Active 2007 PERSISTEN T INSOMNIA; 8 2:16PM by Karla Joseph LPN, Office Visit; Promoted; acuity set as *; Not Available [facility] 3 03:17:52 Fracture of ankle 73062095 Active 2007 Ankle Fracture; 8 2:16PM by Karla Joseph LPN, Office Visit; Promoted; acuity set as *; Not Available [facility] 3 03:17:53 Peptic ulcer 50985040 Active 2007 PEPTIC ULCER; 8 2:16PM by Karla Joseph LPN, Office Visit; Promoted; acuity set as *; Not Available [facility] 3 03:17:53 Type 1 diabetes mellitus 07012575 Active 2007 DIABETES MELLITUS TYPE I; 8 2:16PM by Karla Joseph LPN, Office Visit; Promoted; acuity set as *; Not Available [facility] 3 03:17:58 Constipat ion 24444999 Active 2007 CONSTIPAT ION; 8 2:16PM by Karla Joseph LPN, Office Visit; Promoted; acuity set as *; Not Available [facility] 3 03:17:58 Amputated above knee 649565894 Active 2007 ABOVE KNEE AMPUTATIO N STATUS; 8 2:16PM by Karla Joseph LPN, Office Visit; Promoted; acuity set as *; Not Available [facility] 3 03:17:59 History of depressio n 616036387 Active 2007 DEPRESSIO N, NOS; 8 2:16PM by Karla Joseph LPN, Office Visit; Promoted; acuity set as *; Not Available [facility] 3 03:18:00 Hyperglyc emia due to type 2 diabetes mellitus 36435381228 9109 Active 2023 [facility] 4 13:09:52 Chronic back pain greater than three months duration 43746963552 2 Active 2023 NATHANAEL tavarez, [facility] 4 15:23:19 Blepharit is of right eyelid 14394037885 9103 Active 2024 [facility] 5 15:11:18 Congestiv e heart failure 71203225 Active 2024 NATHANAEL VICTORIA [facility] 5 16:21:48 Acute right otitis media 375905951 Active 2024 [facility] 5 16:28:04 Pain of right shoulder joint 81001271384 924213 Active 2024 NATHANAEL VICTORIA [facility] 5 17:59:42 Hepatospl enomegaly 12484404 Active 2024 NATHANAEL VICTORIA [facility] 5 14:35:12 Thrombocy topenic disorder 916529692 Active 2024 NATHANAEL VICTORIA [facility] 5 14:35:13 Bilateral lower limb edema 458443747 Active 2024 [facility] 5 15:35:25 Acute urinary tract infection 743110892 Active 2024 NATHANAEL VICTORIA [facility] 5 14:32:57 Sarcoidos is 52892738 Active 2024 NATHANAEL VICTORIA [facility] 5 14:33:01 Problem Notes None recorded. Medical Equipment None Reported. Allergies Allergen ID Allergen Name Allergen Category Reaction Reaction Severity Criticality Documentation Date Start Date Code Code System Note Provider Name and Address Organization Details Recorded Time 51103 Product containin g penicilli n (product) medicatio n Not available Not available Not available 11/28/2022 56248 8001 SNOMED Comme nt: Recor ded 09/01 2:16P M by Briseida Joseph LPN, Offic e Visit ; Promo joanne; Shruthi wade ce: *; ; Not Available [facility] 3 02:25:17 89413 Substance with sulfonami de structure and antibacte rial mechanism of action (substanc e) medicatio n Not available Not available Not available 03/22/2025 66194 8003 SNOMED Not Available david [employer] [facility] 5 06:48:45 63687 sulfameth oxazole / trimethop rim medicatio n rash Not available [facility] 03/22/20252007 85997 RxNorm Not Available david [employer] - prod 5 06:50:41 Medications [...] Recorded 8 2:43PM by Jory George CMT, [facility] Summary; Refill Quantity: 0; Not Available [...] Recorded 8 2:43PM by Jory George CMT, [facility] l Summary; Refill Quantity: 0; Not Available [...] Address Organization Details Last Updated DateTime 5 329919. 69 g 112 /min 16 /min 98.2 [degF] 97 % 160/85 mm[Hg] NATHANAEL VICTORIA [facility], [facility] 5 14:34:17 Social History None recorded. Functional Status None recorded. Mental Status None recorded. Family History Nothing Reported. Medical History No medical history recorded. Immunizations Vaccine Type Date Status Note Provider Nam e and Address Organization Details Recorded Time influenza, unspecified formulation 8 completed Not Available [facility] 04/05/2025 12:29:13 Influenza, split virus, trivalent, preservative 0 completed Not Available [facility] 04/05/2025 12:29:13 COVID-19, mRNA, LNP-S, PF, 100 mcg/0.5mL dose or 50 mcg/0.25mL dose 1 completed Not Available [facility] 04/05/2025 12:29:13 COVID-19, mRNA, LNP-S, PF, 100 mcg/0.5mL dose or 50 mcg/0.25mL dose 1 completed Not Available [facility] 04/05/2025 12:29:13 Influenza, split virus, quadrivalent, PF 1 completed Not Available [facility] 04/05/2025 12:29:13 COVID-19, mRNA, LNP-S, PF, 100 mcg/0.5mL dose or 50 mcg/0.25mL dose 1 completed Not Available [facility] 04/05/2025 12:29:13 Influenza, split virus, quadrivalent, PF 2 completed Not Available [facility] 04/05/2025 12:29:13 Influenza, split virus, quadrivalent, PF 3 completed Not Available [facility] 04/05/2025 12:29:13 Influenza, split virus, trivalent, preservative 4 completed Not Available [facility] 04/05/2025 12:29:13 COVID-19, mRNA, LNP-S, PF, 50 mcg/0.5 mL completed Not Available [facility] 04/05/2025 12:29:13 Past Encounters Encounter ID Performer Location Encounter Start Date Encounter Closed Date Diagnosis/Indication Diagnosis SNOMED-CT Code Diagnosis ICD10 Code Diagnosis IMO Codes Diagnosis Note [id number] Chris Parker DO [facility] ([facility]) [address] [place] [address] 01/15/2025 12:18:30 01/17/2025 08:49:31 Type 1 diabetes mellitus 73690012 E10.9 Hepatosplenomegaly 10452 000 R16.2 65303 Pneumonia 785728163 J18. 9 [id number] Chris Parker DO [facility]) [address] [place] [address] 5 01/18/2025 09:41:48 01/23/2025 16:25:08 [id number] Chris Parker DO [facility] ([facility]) [address] [place] [address] 5 01/22/2025 15:25:32 01/24/2025 09:26:09 Congestive heart failure 38773569 I50.9 Type 1 brad betes mellitus 12148911 E10.9 Hepatosplenomegaly 02761 000 R16.2 43230 [id number] Chris Parker DO [facility]) [address] [place] [address] 02/05/2025 14:15:56 02/06/2025 16:50:40 Hepatosplenomegaly 64072639 R16.2 24272 Ascites 069051281 R18.8 335967 Pancytopenia 558320020 D 61.818 [id number] Chris Parker DO [facility] ([facility]) [address] [place] [address] 02/08/2025 13:43:34 02/13/2025 12:53:21 Hyperglycemia due to type 2 diabetes mellitus 0209426700 77419 E11.65 Z79.4 Hepatosplenomegaly 75649 000 R16.2 78371 [id number] Chris Parker DO [facility] ([facility]) [address] [place] [address] 02/12/2025 13:42:12 02/14/2025 09:05:11 Post-discharge follow-up 955309327 Z09 806918 Essential hypertension 52504349 I10 Congestive heart failure 92198882 I50.9 Health Concerns Section Related Observation LastModified by Organization Detai ls LastModified Time None Recorded Concern Status LastModified by Organization Details LastModified Time None Recorded Payers Encounter Date Sequence Insurance Name Policy Number Policy Pate Covered Member ID Pate Member ID Guarantor Name 02/12/2025 1 [place] Marciano Alonso [id number] Marciano Alonso 02/12/2025 2 [place] Marciano Alonso [id number] Marciano Alonso Notes Date Note Type Note Provider Name and Address Organization Details Recorded Time 02/12/2025 text/html COPDReported by PatientHPI:For associated symptoms, patient reportsobesity. For onset/timing, patient reportsmultiple times per day. For duration, patient reportshas noted for years.ROS as noted in the HPI stayed in hospital over the weekend Chris Parker DO [address] [place] [address], [phone], [facility] 02/12/2025 15:44:36
--- OUTSIDE RECORDS SUMMARY | 2025-04-06 05:19 | XMS_ITS | Encounter Summary ---
Author Organization [facility] Address [address] [place] [address] Care Team Providers Care Leadership Intern Name Role Phone Cuba Solano MD Primary Care Provider +1 -[phone] Encounter Details Date Type Department Care Team (Latest Contact Info) Description 05/27/2006 Outpatient Historical [facility] Family Medicine [place]ica [place] [address] [address] Keyona Mccloud, LUCIEN NO ADDRESS ON FILE Other B-Complex Deficiencies (Primary Dx) Social History Tobacco Use Types Packs/Day Years Used Date Smoking Tobacco: Never Assessed Sex and Gender Information Value Date Recorded Sex Assigned at Not on file 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
--- OUTSIDE RECORDS SUMMARY | 2025-04-06 05:19 | XMS_ITS | Encounter Summary ---
Author Organization [facility] Address [address] [place] [address] Care Team Providers Care Client Server Programmer Name Role Phone Cuba Solano MD Primary Care Provider +1 -[phone] Encounter Details Date Type Department Care Team (Latest Contact Info) Description 06/17/2006 Outpatient [facility] Family Medicine Angelica [place] [address] [address] Keyona Mccloud, LUCIEN NO ADDRESS ON FILE Unspecified Otitis Media (Primary Dx); Unspecified Tachycardia; Palpitations Social History Tobacco Use Types Packs/Day Years Used Date Smoking Tobacco: Never Assessed Sex and Gender Information Value Date Recorded Sex Assigned at Not on file 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
--- OUTSIDE RECORDS SUMMARY | 2025-04-06 05:19 | XMS_ITS | Encounter Summary ---
Author Organization [facility] Address [address] [place] [address] Care Team Providers Care Media Center Director School Name Role Phone Cuba Solano MD Primary Care Provider +1 -[phone] Encounter Details Date Type Department Care Team (Latest Contact Info) Description 04/23/2006 Outpatient Historical [facility]- [address] [place] [address] Ash Lopez III, MD [address] [place] [address] Pain in Joint, Shoulder Region (Primary Dx) Social History Tobacco Use Types Packs/Day Years Used Date Smoking Tobacco: Never Assessed Sex and Gender Information Value Date Recorded Sex Assigned at Not on file Legal Sex Male 2:49 AM CLIENT PROFESSIONAL Gender Identity Not on file Sexual Orientation Not on file documented as of this encounter Plan of Treatment Not on file documented as of this encounter Visit Diagnoses Diagnosis Pain in joint, shoulder region- Primary documented in this encounter Care Teams Media Center Director School Relationship Specialty Start Date End Date Cuba Solano MD PCP - General 07/11/09 documented as of this encounter
--- OUTSIDE RECORDS SUMMARY | 2025-04-06 05:19 | XMS_ITS | Encounter Summary ---
Author Organization [facility] Address [address] [place] [address] Care Team Providers Care Certified Home Health Aide Name Role Phone Cuba Solano MD Primary Care Provider +1 -[phone] Encounter Details Date Type Department Care Team (Latest Contact Info) Description 06/18/2006 Outpatient Historical [facility] [address] [place] [address] Keyona Mccloud, LUCIEN NO ADDRESS ON FILE Supraventricular Premature Beats (Primary Dx) Social History Tobacco Use Types Packs/Day Years Used Date Smoking Tobacco: Never Assessed Sex and Gender Information Value Date Recorded Sex Assigned at Not on file 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
--- OUTSIDE RECORDS SUMMARY | 2025-04-06 05:19 | XMS_ITS | Encounter Summary ---
Author Organization [facility] Address [address] [place] [address] Care Team Providers Care It Architecture Consultant Name Role Phone Cuba Solano MD Primary Care Provider +1 -[phone] Encounter Details Date Type Department Care Team (Latest Contact Info) Description 04/05/2006 [facility] 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
--- OUTSIDE RECORDS SUMMARY | 2025-04-06 05:19 | XMS_ITS | Encounter Summary ---
Author Organization [facility] Address [address] [place] [address] Care Team Providers Care Software Specialist Name Role Phone Cuba Solano MD Primary Care Provider +1 -[phone] Encounter Details Date Type Department Care Team (Latest Contact Info) Description 07/08/2006 Outpatient Historical [facility] Family Medicine [place] [id number] [address] Keyona Mccloud, MANAGER UTILIZATION NO ADDRESS ON FILE Allergy, Unspecified not Elsewhere Classified (Primary Dx) Social History Tobacco Use Types Packs/Day Years Used Date Smoking Tobacco: Never Assessed Sex and Gender Information Value Date Recorded Sex Assigned at Not on file Legal Sex Male 2:49 AM 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
--- OUTSIDE RECORDS SUMMARY | 2025-04-06 05:19 | XMS_ITS | Encounter Summary ---
Author Organization [facility] Address [address] [place] [address] Care Team Providers Care Rn Wellness Name Role Phone Cuba Solano MD Primary Care Provider +1 -[phone] Encounter Details Date Type Department Care Team (Latest Contact Info) Description 06/06/2004 Outpatient Historical 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
--- OUTSIDE RECORDS SUMMARY | 2025-04-06 05:19 | XMS_ITS | Encounter Summary ---
Author Organization [facility] Address [address] [place] [address] Care Team Providers Care Kitchen Utility Associate Name Role Phone Cuba Solano MD Primary Care Provider +1 [phone] Encounter Details Date Type Department Care Team (Latest Contact Info) Description 07/27/2006 Outpatient Historical [facility] Orthopedics- 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
--- OUTSIDE RECORDS SUMMARY | 2025-04-06 05:19 | XMS_ITS | Encounter Summary ---
Author Organization [facility] Address [address] [place] [address] Care Team Providers Care Gang Leader Name Role Phone Cuba Solano MD Primary Care Provider +1 [phone] Encounter Details Date Type Department Care Team (Latest Contact Info) Description 03/29/2006 Outpatient Historical [facility] Family Medicine [place] [address] [address] Keyona Mccloud, LUCIEN NO ADDRESS ON FILE Unspecified Essential Hypertension (Primary Dx) Social History Tobacco Use Types Packs/Day Years Used Date Smoking Tobacco: Never Assessed Sex and Gender Information Value Date Recorded Sex Assigned at Not on file Legal 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
--- OUTSIDE RECORDS SUMMARY | 2025-04-06 05:19 | XMS_ITS | Encounter Summary ---
Author Organization [facility] Address [address] [place] [address] Care Team Providers Care Athletic Equipment Manager Name Role Phone Cuba Solano MD Primary Care Provider +1 [phone] Encounter Details Date Type Department Care Team (Latest Contact Info) Description 04/12/2006 Outpatient Historical [facility] Family Medicine [place] [facility] [address] [address] Huey Upton Jr., MD [address] [place] [address] 248 [facility] 140 [place] [address] Dysphagia (Primary Dx); Unspecified Essential Hypertension Social History Tobacco Use Types Packs/Day Years Used Date Smoking Tobacco: Never Assessed Sex and Gender Information Value Date Recorded Sex Assigned at Not on file Legal Sex Male 2:49 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
--- OUTSIDE RECORDS SUMMARY | 2025-04-06 05:19 | XMS_ITS | Encounter Summary ---
Author Organization [facility] Address [address] [place] [address] Care Team Providers Care Fountain Clerk Name Role Phone Cuba Solano MD Primary Care Provider +1 [phone] Encounter Details Date Type Department Care Team (Latest Contact Info) Description 07/15/2006 Outpatient Historical [facility] [address] [facility] [address] [place] [address] Ash Lopez III, MD [address] [place] [address] Adhesive Capsulitis of Shoulder (Primary [...] OF CARE TESTING Edited Performing Organization Address [facility] Co de Phone Number INTERFACE SYSTEM Refer to clinic/hospital department * (ABNORMAL) POC GLUCOSE (07/15/2006 11:02 AM CDT) GLUCOSE POC 116(H) 60 - 100 mg/dL INTERFACE SYSTEM 07/15/2006 11:0 2 AM CDT Ash Lopez III, MD POINT OF CARE TESTING Edited Performing Organization Address [facility] de Phone Number INTERFACE SYSTEM Refer to clinic/hospital department documented in this encounter Visit Diagnoses Diagnosis Adhesive capsulitis of shoulder- Primary documented in this encounter Care Teams Fountain Clerk Relationship Specialty Start Date End Date Cuba Solano MD PCP - General 07/11/09 documented as of this encounter
--- OUTSIDE RECORDS SUMMARY | 2025-04-06 05:19 | XMS_ITS | Encounter Summary ---
Author Organization [facility] Address [address] [place] [address] Care Team Providers Care Artificial Stone Applicator Name Role Phone Cuba Solano MD Primary Care Provider +1 [phone] Encounter Details Date Type Department Care Team (Latest Contact Info) Description 07/05/2006 [facility] 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
--- OUTSIDE RECORDS SUMMARY | 2025-04-06 05:19 | XMS_ITS | Encounter Summary ---
Author Organization [facility] Address [address] [place] [address] Care Team Providers Care Jewel Waxer Name Role Phone Cuba Solano MD Primary Care Provider +1 [phone] Encounter Details Date Type Department Care Team (Latest Contact Info) Description 06/26/2004 Outpatient Historical [facility] Family Medicine [place] [address] [address] Keyona Mccloud, ROAD TRAIN DRIVER NO ADDRESS ON FILE ALLERGY, UNSPECIFIED (Primary Dx) Social History Tobacco Use Types Packs/Day Years Used Date Smoking Tobacco: Never Assessed Sex and Gender Information Value Date Recorded Sex Assigned at Not on file Legal 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
--- OUTSIDE RECORDS SUMMARY | 2025-04-06 05:19 | XMS_ITS | Encounter Summary ---
Author Organization [facility] Address [address] [place] [address] Care Team Providers Care Equity Structurer Name Role Phone Cuba Solano MD Primary Care Provider +1 [phone] Encounter Details Date Type Department Care Team (Latest Contact Info) Description 05/13/2004 Outpatient [facility] Family Medicine [place] [id number] [address] Donte Borrego MD NO ADDRESS ON FILE DIABETES MELLITUS TYPE II UNCONTR UNCOMPL (Primary Dx); Benign hypertension; Dermatitis due to plant Social History Tobacco Use Types Packs/Day Years Used Date Smoking Tobacco: Never Assessed Sex and Gender Information Value Date Recorded Sex Assigned at Not on file 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
--- OUTSIDE RECORDS SUMMARY | 2025-04-06 05:19 | XMS_ITS | Encounter Summary ---
Author Organization [facility] Address [address] [place] [address] Care Team Providers Care Recapper Name Role Phone Cuba Solano MD Primary Care Provider +1 -[phone] Encounter Details Date Type Department Care Team (Latest Contact Info) Description 05/04/2006 Outpatient Historical [facility] Family Medicine [place] [address] [address] Keyona Mccloud FNP NO ADDRESS ON FILE DM w/o Complication Type II (CMS/HCC) (Primary Dx); Other and Unspecified Hyperlipidemia; Encounter for Long-Term (Current) Use of Other Medications Social History Tobacco Use Types Packs/Day Years Used Date Smoking Tobacco: Never Assessed Sex and Gender Information Value Date Recorded Sex Assigned at Not on file Legal Sex Male 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
--- OUTSIDE RECORDS SUMMARY | 2025-04-06 05:19 | XMS_ITS | Encounter Summary ---
Author Organization [facility] Address [address] [place] [address] Care Team Providers Care Lower School Music Teacher Name Role Phone Cuba Solano MD Primary Care Provider +1 -[phone] Encounter Details Date Type Department Care Team (Latest Contact Info) Description 07/14/2004 Outpatient Historical [facility] Family Medicine [place] [address] [address] Keyona Mccloud, LUCIEN NO ADDRESS ON FILE THRUSH (Primary Dx); JOINT PAIN-L/LEG Social History Tobacco Use Types Packs/Day Years Used Date Smoking Tobacco: Never Assessed Sex and Gender Information Value Date Recorded Sex Assigned at Not on file 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
--- OUTSIDE RECORDS SUMMARY | 2025-04-06 05:19 | XMS_ITS | Encounter Summary ---
Author Organization [facility] Address [address] [place] [address] Care Team Providers Care Manager Storage Name Role Phone Cuba Solano MD Primary Care Provider +1 [phone] Encounter Details Date Type Department Care Team (Latest Contact Info) Description 05/25/2006 Outpatient Historical [facility] Orthopedics- 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
--- OUTSIDE RECORDS SUMMARY | 2025-04-06 05:19 | XMS_ITS | Clinical Summary ---
Author Organization [facility] Address [address] [place] [address] Care Team Providers Care Receiving Manager Name Role Phone Cuba Solano MD Primary Care Provider +1 -[phone] Allergies Active Allergy Reactions Criticality Noted Date [...] mL 30 x 1/2 Misc Syrg by [facility]Non-Drug; Combo Route) route. 100 Syringe 11 05/30/19 [...] hours. Active Water Liquid 1 Gallon by [facility]Non-Drug; Combo Route) route daily. Distilled water for [...] file Legal Sex Male 2: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 FLORAL Gender Identity Not on file Sexual Orientation [...] HEMOGLOBIN A1C 6.9(H) 4.0 - 6.0 % [facility] Blood specimen (specimen) 10/11/2008 1:40 PM CDT 10/11/2008 1:41 PM CDT us Katie Acosta DO CHEMISTRY ORDERABLES Final Result Performing Organization Address [facility] Phone Number INTERFACE SYSTEM Refer to clinic/hospital department [facility] CLIA# [id number] [address] [place] [address] * (ABNORMAL) MICROALBUMIN, RANDOM URINE (09/27/2008 1:30 PM CDT) MICROALBUMIN, URINE 20(H) <20 MG/L [facility] Blood specimen (specimen) 09/27/2008 1:30 PM CDT 09/27/2008 1:31 PM CDT Katie Acosta DO URINE ORDERABLES Susanne l Result Performing Organization Address [facility] Phone Number INTERFACE SYSTEM Refer to clinic/hospital department [facility] CLIA# [id number] [address] [place] [address] * (ABNORMAL) LIPID PANEL (09/27/2008 1:30 PM CDT) CHOLESTEROL 196 100 - 200 MG/DL [facility] TRIGLYCERIDE 218(H) 0 - 150 MG/DL [facility] HDL 23(L) 40 - 60 MG/DL [facility] LDL CALCULATED 129(H) 58 - 100 MG/DL [facility] Comment: CALCULATED LDL REFERENCE: < 100 Optimal 100 - 129 Near Optimal 130 - 159 Borderline High > 160 High Risk CHOL/HDL RATIO 8.52(H) 3.43 - 4.97 RATIO [facility] Blood specimen (specimen) 09/27/2008 1:30 PM CDT 09/27/2008 1:31 PM CDT Katie Acosta DO CHEMISTRY ORDERABLES Final Result Performing Organization Address [facility] Phone Number INTERFACE SYSTEM Refer to clinic/hospital department [facility] CLIA# [id number] [address] [place] [address] from Last 3 Months or Most Recently Relevant to Health Maintenance Insurance MEDICARE PART A AND B MEDICAID [place] Advance Directives For more information, please contact: [phone] Documents on File Type Date Recorded Patient Corporate Safety Manager Expl anation Advance Directive POA 01/20/2013 8:55 AM A dvance Directive POA Care Teams Receiving Manager Relationship Specialty Start Date End Date Cuba Solano MD PCP - General 07/11/09
--- OUTSIDE RECORDS SUMMARY | 2025-04-06 05:20 | XMS_ITS | Encounter Summary ---
Author Organization [facility] Address [address] [place] [address] Care Team Providers Care Boring And Filling Machine Operator Name Role Phone Cuba Solano MD Primary Care Provider +1 -[phone] Encounter Details Date Type Department Care Team (Late st Contact Info) Description 12/02/2004 Outpatient Historical [facility] Family Medicine [place] [address] [address] Social History Tobacco Use Types Packs/Day Years Used Date Smoking Tobacco: Never Assessed Sex and Gender Information Value Date Recorded Sex Assigned at Not on file Legal 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
--- OUTSIDE RECORDS SUMMARY | 2025-04-06 05:20 | XMS_ITS | Encounter Summary ---
Author Organization [facility] Address [address] [place] [address] Care Team Providers Care Office Technology Instructor Name Role Phone Cuba Solano MD Primary Care Provider +1 -[phone] Encounter Details Date Type Department Care Team (Latest Contact Info) Description 11/26/2004 Outpatient Historical [facility] Orthopedics- 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
--- OUTSIDE RECORDS SUMMARY | 2025-04-06 05:20 | XMS_ITS | Encounter Summary ---
Author Organization [facility] Address [address] [place] [address] Care Team Providers Care Annealer Helper Name Role Phone Cuba Solano MD Primary Care Provider +1 -[phone] Encounter Details Date Type Department Care Team (Latest Contact Info) Description 07/18/2004 Outpatient Historical [facility] Family Medicine [place] [address] [address] Keyona Mccloud, LUCIEN NO ADDRESS ON FILE ORAL APHTHAE (Primary Dx); DYSPHAGIA Social History Tobacco Use Types Packs/Day Years Used Date Smoking Tobacco: Never Assessed Sex and Gender Information Value Date Recorded Sex Assigned at Not on file Legal 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
--- OUTSIDE RECORDS SUMMARY | 2025-04-06 05:20 | XMS_ITS | Continuity of Care Document ---
Author Organization [place] - Aravind Barboza [facility] Mikhail, Chas, [facility] ([facility]) Address [address] [address] Assessment No assessment recorded. Plan of Treatment [...] Modified By Organization Details Last Modified Time 02/26/2025 [id number] Improving volume overload. No ascites on paracentesis. [...] resul t No observ ation record ed. [id number] [facility] [address] [place], [address], 02/12/2025 11:57:54 Result Notes None recorded. Problems Name Problem SNOMED Code Status Onset Date Resolution Date Notes Provider Name and Address Organization Details Recorded Time Essential hypertens ion 79743581 Active 2007 ESSENTIAL HYPERTENS ION; 8 2:16PM by Karla Joseph LPN, Office Visit; Promoted; acuity set as *; Not Available [facility] 07/29/202 3 03:17:47 Allergic rhinitis 34225476 Active 2007 ALLERGIC RHINITIS; 8 2:16PM by Karla Joseph LPN, Office Visit; Promoted; acuity set as *; Not Available [facility] 3 03:17:47 Persisten t insomnia 842398585 Active 2007 PERSISTEN T INSOMNIA; 8 2:16PM by Karla Jospeh LPN, Office Visit; Promoted; acuity set as *; Not Available [facility] 3 03:17:52 Fracture of ankle 42738840 Active 2007 Ankle Fracture; 8 2:16PM by Karla Joseph LPN, Office Visit; Promoted; acuity set as *; Not Available [facility] 3 03:17:53 Peptic ulcer 45963350 Active 2007 PEPTIC ULCER; 8 2:16PM by Karla Joseph LPN, Office Visit; Promoted; acuity set as *; Not Available [facility] 3 03:17:53 Type 1 diabetes mellitus 48510330 Active 2007 DIABETES MELLITUS TYPE I; 8 2:16PM by Karla Joseph LPN, Office Visit; Promoted; acuity set as *; Not Available [facility] 3 03:17:58 Constipat ion 00224999 Active 2007 CONSTIPAT ION; 8 2:16PM by Karla Joseph LPN, Office Visit; Promoted; acuity set as *; Not Available [facility] 3 03:17:58 Amputated above knee 079133427 Active 2007 ABOVE KNEE AMPUTATIO N STATUS; 8 2:16PM by Karla Joseph LPN, Office Visit; Promoted; acuity set as *; Not Available [facility] 3 03:17:59 History of depressio n 058832566 Active 2007 DEPRESSIO N, NOS; 8 2:16PM by Karla Joseph LPN, Office Visit; Promoted; acuity set as *; Not Available [facility] 3 03:18:00 Hyperglyc emia due to type 2 diabetes mellitus 40656692164 9109 Active 2023 NATHANAEL tavarez, [facility] 4 13:09:52 Chronic back pain greater than three months duration 39006778001 2 Active 2023 [facility] 4 15:23:19 Blepharit is of right eyelid 14863579954 9103 Active 2024 NATHANAEL tavarez, [facility] 5 15:11:18 Congestiv e heart failure 11773772 Active 2024 [facility] 5 16:21:48 Acute right otitis media 306073910 Active 2024 [facility] 5 16:28:04 Pain of right shoulder joint 61243201716 330835 Active 2024 [facility] 5 17:59:42 Hepatospl enomegaly 14824874 Active 2024 NATHANAEL VICTORIA [facility] 5 14:35:12 Thrombocy topenic disorder 346538062 Active 2024 NATHANAEL VICTORIA [facility] 5 14:35:13 Bilateral lower limb edema 209458073 Active 2024 [facility] 5 15:35:25 Acute urinary tract infection 659584411 Active 2024 [facility] 5 14:32:57 Sarcoidos is 92363506 Active 2024 NATHANAEL JULIEN [facility] 5 14:33:01 Problem Notes None recorded. Medical Equipment None Reported. Allergies Allergen ID Allergen Name Allergen Category Reaction Reaction Severity Criticality Documentation Date Start Date Code Code System Note Provider Name and Address Organization Details Recorded Time 19927 Product containin g penicilli n (product) medicatio n Not available Not available Not available 11/28/2022 72670 8001 SNOMED Comme nt: Recor ded 09/01 2:16P M by Briseida Joseph LPN, Offic e Visit ; Promo joanne; Shruthi wade ce: *; ; Not Available [facility] 3 02:25:17 17749 Substance with sulfonami de structure and antibacte rial mechanism of action (substanc e) medicatio n Not available Not available Not available 03/22/2025 77222 8003 SNOMED Not Available [employer] - prod 5 06:48:45 99519 sulfameth oxazole / trimethop rim medicatio n rash Not available high 03/22/20252007 71415 RxNorm Not Available [employer] - prod 5 06:50:41 [...] ion active 0; Recorded 8 2:23PM by aKrla Joseph LPN, Office Visit; Not Available Not Available Not Available moxifloxac in 400 mg tablet TAKE 1 TABLET BY MOUTH DAILY active Not Available Not Available No t Available Zyrtec 10 mg tablet daily 2007 active Recorded 8 2:43PM by Jory George CMT, [employer] Summary; Refill Quantity: 0; Not Available Not Available Not Available carbamazep ine 200 mg tablet two times daily 2007 active Recorded 8 2:43PM by Jory George CMT, [employer] Summary; Refill Quantity: 0; Not Available [...] Recorded 8 2:43PM by Jory George CMT, [employer] l Summary; Refill Quantity: 0; Not Available [...] Recorded 8 2:43PM by Jory George CMT, [facility] l Summary; Refill Quantity: 0; Not Available [...] Address Organization Details Last Updated DateTime 5 741375. 93 g 107 /min 18 /min 97.5 [degF] 95 % 129/53 mm[Hg] NATHANAEL VICTORIA [facility], [facility] 5 16:01:18 Social History None recorded. Functional Status None recorded. Mental Status None recorded. Family History Nothing Reported. Medical History No medical history recorded. Immunizations Vaccine Type Date Status Note Provider Nam e and Address Organization Details Recorded Time influenza, unspecified formulation 8 completed Not Available [facility] 04/05/2025 12:29:13 Influenza, split virus, trivalent, preservative 0 completed Not Available [facility] 04/05/2025 12:29:13 COVID-19, mRNA, LNP-S, PF, 100 mcg/0.5mL dose or 50 mcg/0.25mL dose 1 completed Not Available [facility] 04/05/2025 12:29:13 COVID-19, mRNA, LNP-S, PF, 100 mcg/0.5mL dose or 50 mcg/0.25mL dose 1 completed Not Available [facility] 04/05/2025 12:29:13 Influenza, split virus, quadrivalent, PF 1 completed Not Available [facility] 04/05/2025 12:29:13 COVID-19, mRNA, LNP-S, PF, 100 mcg/0.5mL dose or 50 mcg/0.25mL dose 1 completed Not Available [facility] 04/05/2025 12:29:13 Influenza, split virus, quadrivalent, PF 2 completed Not Available [facility] 04/05/2025 12:29:13 Influenza, split virus, quadrivalent, PF 3 completed Not Available [facility] 04/05/2025 12:29:13 Influenza, split virus, trivalent, preservative 4 completed Not Available [facility] 04/05/2025 12:29:13 COVID-19, mRNA, LNP-S, PF, 50 mcg/0.5 mL 5 completed Not Available [facility] 04/05/2025 12:29:13 Past Encounters Encounter ID Performer Location Encounter Start Date Encounter Closed Date Diagnosis/Indication Diagnosis SNOMED-CT Code Diagnosis ICD10 Code Diagnosis IMO Codes Diagnosis Note [id number] Chris Parker DO [facility] ([facility]) [address] [address] 5 02/05/2025 14:15:56 02/06/2025 16:50:40 Hepatosplenomegaly 22146861 R16.2 38130 Ascites 834140715 R18.8 795629 Pancytopenia 153524238 D 61.818 39619 [id number] Chris Parker DO [facility] ([facility]) [address] [place] [address] 5 02/08/2025 13:43:34 02/13/2025 12:53:21 Hyperglycemia due to type 2 diabetes mellitus 4907405486 60570 E11.65 Z79.4 Hepatosplenomegaly 22359 000 R16.2 78161 [id number] Chris Parker DO [facility] ([facility]) [address] [place] [address] 5 02/12/2025 13:42:12 02/14/2025 09:05:11 Post-discharge follow-up 103258944 Z09 143072 Essential hypertension 44206377 I10 Congestive heart failure 51501389 I50.9 [id number] SUSU FOUNTAIN PA-C [facility] ([facility]) [address] [place] [address] 5 02/21/2025 13:40:55 03/20/2025 07:29:37 Bilateral lower limb edema 784594844 R60.0 [id number] SPIRONALAC TONE 50MG QDBUMEX 3MG PO BID, ON LINZOLID for skin cellulitis .monitor BMP for cr and electrolyt es. [id number] Chris Parker DO [facility] ([facility]) [address] [place] [address] 02/26/2025 14:48:04 02/28/2025 08:09:20 Type 1 diabetes mellitus 52517612 E10.9 Congestive heart failure 12388057 I50.9 Essential hypertension 95538729 I10 Cirrhosis of liver 41284 007 K74.69 9570748 Chronic constipation 236 584214 K59.09 314683 Health Concerns Section Related Observation LastModified by Organization Detai ls LastModified Time None Recorded Concern Status LastModified by Organization Details LastModified Time None Recorded Payers Encounter Date Sequence Insurance Name Policy Number Policy Pate Covered Member ID Pate Member ID Guarantor Name 02/26/2025 1 [place] Marciano Recinos Gavin [id number] Marciano Jorje Alonso 02/26/2025 2 [place] Marciano Jorje Alonso [id number] Marciano Alonso Notes Date Note Type Note Provider Name and Address Organization Details Recorded Time 02/26/2025 text/html COPDReported by PatientHPI:For associated symptoms, patient reportsobesity. For onset/timing, patient reportsmultiple times per day. For duration, patient reportshas noted for years.ROS as noted in the HPI staff wants to discuss weight and sugars. Chris Parker DO [address] [place] [address], [address], RASHEED Sloan [facility] 02/27/2025 14:39:25
--- OUTSIDE RECORDS SUMMARY | 2025-04-06 05:20 | XMS_ITS | Encounter Summary ---
Author Organization [facility] Address [address] [place] [address] Care Team Providers Care Production Machine Operator Name Role Phone Cuba Solano MD Primary Care Provider [phone] [phone] Encounter Details Date Type Department Care Team (Late st Contact Info) Description 09/02/2004 Outpatient Historical [facility] Family [facility] [place] [id number] [address] Social History Tobacco Use Types Packs/Day Years Used Date Smoking Tobacco: Never Assessed Sex and Gender Information Value Date Recorded Sex Assigned at Not on file 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
--- OUTSIDE RECORDS SUMMARY | 2025-04-06 05:20 | XMS_ITS | Encounter Summary ---
Author Organization [facility] Address [address] [place] [address] Care Team Providers Care Electronic Parts Designer Name Role Phone Cuba Solano MD Primary Care Provider [phone] [phone] Encounter Details Date Type Department Care Team (Latest Contact Info) Description 11/18/2004 Outpatient Historical [facility] 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
--- OUTSIDE RECORDS SUMMARY | 2025-04-06 05:20 | XMS_ITS | Encounter Summary ---
Author Organization [facility] Address [address] [place] [address] Care Team Providers Care Service Crew Leader Name Role Phone Cuba Solano MD Primary Care Provider [phone] [phone] Encounter Details Date Type Department Care Team (Late st Contact Info) Description 07/22/2004 Outpatient Historical [facility] Family Medicine [place] [id number] [address] Social History Tobacco Use Types Packs/Day Years Used Date Smoking Tobacco: Never Assessed Sex and Gender Information Value Date Recorded Sex Assigned at Not on file Legal 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
--- OUTSIDE RECORDS SUMMARY | 2025-04-06 05:20 | XMS_ITS | Encounter Summary ---
Author Organization [facility] Address [address] [place] [address] Care Team Providers Care Chief Green Officer Name Role Phone Cuba Solano MD Primary Care Provider [phone] [phone] Encounter Details Date Type Department Care Team (Latest Contact Info) Description 11/21/2004 Outpatient Historical [facility] Family Medicine [place] [address] [address] Keyona Mccloud, LUCIEN NO ADDRESS ON FILE Pain in limb (Primary Dx) Social History Tobacco Use Types Packs/Day Years Used Date Smoking Tobacco: Never Assessed Sex and Gender Information Value Date Recorded Sex Assigned at Not on file 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
--- OUTSIDE RECORDS SUMMARY | 2025-04-06 05:20 | XMS_ITS | Encounter Summary ---
Author Organization [facility] Address [address] [place] [address] Care Team Providers Care Bellhop Service Captain Name Role Phone Cuba Solano MD Primary Care Provider [phone] [phone] Encounter Details Date Type Department Care Team (Latest Contact Info) Description 09/03/2004 Outpatient Historical [facility] Family Medicine [place] [facility] [address] [address] Huey Upton Jr., MD [address] [place] [address] 248 [facility] [address] [place] [address] DIABETES MELLITUS TYPE II-UNCOMPL (CMS/HCC) (Primary Dx); JOINT PAIN-L/LEG Social History Tobacco Use Types Packs/Day Years Used Date Smoking Tobacco: Never Assessed Sex and Gender Information Value Date Recorded Sex Assigned at Not on file 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
--- OUTSIDE RECORDS SUMMARY | 2025-04-06 05:20 | XMS_ITS | Encounter Summary ---
Author Organization [facility] Address [address] [place] [address] Care Team Providers Care Ventilating Engineer Name Role Phone Cuba Solano MD Primary Care Provider [phone] [phone] Encounter Details Date Type Department Care Team (Latest Contact Info) Description 09/11/2004 Outpatient Historical [facility] [place] [address] 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
--- OUTSIDE RECORDS SUMMARY | 2025-04-06 05:20 | XMS_ITS | Encounter Summary ---
Author Organization [facility] Address [address] [place] [address] Care Team Providers Care Applier Name Role Phone Cuba Solano MD Primary Care Provider [phone] [phone] Encounter Details Date Type Department Care Team (Late st Contact Info) Description 09/11/2004 Outpatient Historical [facility] Imaging Services [facility] 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
--- OUTSIDE RECORDS SUMMARY | 2025-04-06 05:20 | XMS_ITS | Encounter Summary ---
Author Organization [facility] Address [address] [place] [address] Care Team Providers Care All Around Gear Machine Operator Name Role Phone Cuba Solano MD Primary Care Provider +1 [phone] Encounter Details Date Type Department Care Team (Latest Contact Info) Description 10/21/2004 Outpatient Historical [facility] Family Medicine [place] [facility] [address] [address] Huey Upton Jr., MD [address] [place] [address] 248 [facility] 140 [place] [address] ACUTE SINUSITIS NOS (Primary Dx) Social History Tobacco Use Types Packs/Day Years Used Date Smoking Tobacco: Never Assessed Sex and Gender Information Value Date Recorded Sex Assigned at Not on file 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
--- OUTSIDE RECORDS SUMMARY | 2025-04-06 05:20 | XMS_ITS | Continuity of Care Document ---
Author Organization [place] - Aravind Barboza [facility] Mikhail, Chas, [facility] ([facility]) Address [address] [place] [address] Assessment No assessment recorded. Plan of Treatment [...] By Organization Details Last Modified Time 01/22/2025 [id number] Seen in the ER over the weekend and started on steroids for bronchitis/copd exacerbation. Still dyspneic. Signficant weight gain likely secondary to retained fluid. Will order outpatient diagnostic and therapeutic paracentesis. Planning for liver bx soon. Will refer to GI. Start lasix 40mg bid. Good discussion with sister about worsening health and results will not be fast. Not available 01/23/2025 14:49:40 Reason for Referral None Reported. Results Created Date Observation Date Name Description Value Unit Range Abnormal Flag Note LastModifiedBy Organization Detail LastModifiedTime 02/09/20 25 02/08/2025 imagi ng/di agnos tic resul t No observ ation record ed. [email or web address] [facility] [address] [place], [address], 02/12/2025 11:57:54 Result Notes None recorded. Problems Name Problem SNOMED Code Status Onset Date Resolution Date Notes Provider Name and Address Organization Details Recorded Time Essential hypertens ion 90168805 Active 2007 ESSENTIAL HYPERTENS ION; 8 2:16PM by Karla Joseph LPN, Office Visit; Promoted; acuity set as *; Not Available [facility] 3 03:17:47 Allergic rhinitis 47658112 Active 2007 ALLERGIC RHINITIS; 8 2:16PM by Karla Joseph LPN, Office Visit; Promoted; acuity set as *; Not Available [facility] 3 03:17:47 Persisten t insomnia 530131637 Active 2007 PERSISTEN T INSOMNIA; 8 2:16PM by Karla Joseph LPN, Office Visit; Promoted; acuity set as *; Not Available [facility] 3 03:17:52 Fracture of ankle 13444691 Active 2007 Ankle Fracture; 8 2:16PM by Karla Joseph LPN, Office Visit; Promoted; acuity set as *; Not Available [facility] 3 03:17:53 Peptic ulcer 29061024 Active 2007 PEPTIC ULCER; 8 2:16PM by Karla Joseph LPN, Office Visit; Promoted; acuity set as *; Not Available [facility] 3 03:17:53 Type 1 diabetes mellitus 71818230 Active 2007 DIABETES MELLITUS TYPE I; 8 2:16PM by Karla Joseph LPN, Office Visit; Promoted; acuity set as *; Not Available [facility] 3 03:17:58 Constipat ion 12178071 Active 2007 CONSTIPAT ION; 8 2:16PM by Karla Joseph LPN, Office Visit; Promoted; acuity set as *; Not Available [facility] 3 03:17:58 Amputated above knee 344849208 Active 2007 ABOVE KNEE AMPUTATIO N STATUS; 8 2:16PM by Karla Joseph LPN, Office Visit; Promoted; acuity set as *; Not Available [facility] 3 03:17:59 History of depressio n 046521558 Active 2007 DEPRESSIO N, NOS; 8 2:16PM by Karla Joseph LPN, Office Visit; Promoted; acuity set as *; Not Available [facility] 3 03:18:00 Hyperglyc emia due to type 2 diabetes mellitus 52787232877 9109 Active 2023 NATHANAEL tavarez, [facility] 4 13:09:52 Chronic back pain greater than three months duration 26250918458 2 Active 2023 NATHANAEL tavarez, [facility] 4 15:23:19 Blepharit is of right eyelid 84973375092 9103 Active 2024 NATHANAEL tavarez, [facility] 5 15:11:18 Congestiv e heart failure 24866381 Active 2024 NATHANAEL tavarez, [facility] 5 16:21:48 Acute right otitis media 238998151 Active 20[facility] 5 16:28:04 Pain of right shoulder joint 48246974978 265972 Active 2024 NATHANAEL tavarez, [facility] 5 17:59:42 Hepatospl enomegaly 42577903 Active 2024 [facility] 5 14:35:12 Thrombocy topenic disorder 552345169 Active 2024 [facility] 5 14:35:13 Bilateral lower limb edema 484627880 Active 2024 MARLON GRAJEDA [facility] 5 15:35:25 Acute urinary tract infection 295803610 Active 2024 [facility] 5 14:32:57 Sarcnilo is 15942986 Active 2024 NATHANAEL FISHER [facility], Chas 5 14:33:01 Problem Notes None recorded. Medical Equipment None Reported. Allergies Allergen ID Allergen Name Allergen Category Reaction Reaction Severity Criticality Documentation Date Start Date Code Code System Note Provider Name and Address Organization Details Recorded Time 84516 Product containin g penicilli n (product) medicatio n Not available Not available Not available 11/28/2022 67957 8001 SNOMED Comme nt: Recor ded 09/01 2:16P M by Briseida Joseph LPN, Offic e Visit ; Promo joanne; Shruthi wade ce: *; ; Not Available [facility] 3 02:25:17 45714 Substance with sulfonami de structure and antibacte rial mechanism of action (substanc e) medicatio n Not available Not available Not available 03/22/2025 50206 8003 SNOMED Not Available david - [employer] - prod 5 06:48:45 49314 sulfameth oxazole / trimethop rim medicatio n rash Not available [facility] 03/22/20252007 04332 RxNorm Not Available david - [employer] - prod 5 06:50:41 [...] Recorded 8 2:43PM by Jory George CMT, [employer] Summary; Refill Quantity: 0; Not [...] Recorded 8 2:43PM by Jory George CMT, [employer] Summary; Refill Quantity: 0; Not [...] Address Organization Details Last Updated DateTime 5 235668. 51 g 90 /min 25 /min 98.7 [degF] 96 % 126/76 mm[Hg] NATHANAEL VICTORIA [facility] 5 17:28:46 Social History None recorded. Functional Status None recorded. Mental Status None recorded. Family History Nothing Reported. Medical History No medical history recorded. Immunizations Vaccine Type Date Status Note Provider Nam e and Address Organization Details Recorded Time influenza, unspecified formulation 8 completed Not Available [facility] 04/05/2025 12:29:13 Influenza, split virus, trivalent, preservative 0 completed Not Available [facility] 04/05/2025 12:29:13 COVID-19, mRNA, LNP-S, PF, 100 mcg/0.5mL dose or 50 mcg/0.25mL dose 1 completed Not Available [facility] 04/05/2025 12:29:13 COVID-19, mRNA, LNP-S, PF, 100 mcg/0.5mL dose or 50 mcg/0.25mL dose 1 completed Not Available [facility] 04/05/2025 12:29:13 Influenza, split virus, quadrivalent, PF 1 completed Not Available [facility] 04/05/2025 12:29:13 COVID-19, mRNA, LNP-S, PF, 100 mcg/0.5mL dose or 50 mcg/0.25mL dose 1 completed Not Available [facility] 04/05/2025 12:29:13 Influenza, split virus, quadrivalent, PF 2 completed Not Available [facility] 04/05/2025 12:29:13 Influenza, split virus, quadrivalent, PF 3 completed Not Available [facility] 04/05/2025 12:29:13 Influenza, split virus, trivalent, preservative 4 completed Not Available [facility] 04/05/2025 12:29:13 COVID-19, mRNA, LNP-S, PF, 50 mcg/0.5 mL 5 completed Not Available [facility] 04/05/2025 12:29:13 Past Encounters Encounter ID Performer Location Encounter Start Date Encounter Closed Date Diagnosis/Indication Diagnosis SNOMED-CT Code Diagnosis ICD10 Code Diagnosis IMO Codes Diagnosis Note [id number] Chris Parker DO [facility]) [address] [place], [place] [address] 01/11/2025 12:12:21 01/16/2025 10:56:12 Hyperglycemia due to type 2 diabetes mellitus 9943776841 10415 E11.65 Z79.4 [id number] Chris Parker DO [facility]) [address] [place] [address] 01/15/2025 12:18:30 01/17/2025 08:49:31 Type 1 diabetes mellitus 03626247 E10.9 Hepatosplenomegaly 10160 000 R16.2 84731 Pneumonia 883515438 J18. 9 [id number] Chris Parker DO [facility]) [address] [place] [address] 01/18/2025 09:41:48 01/23/2025 16:25:08 [id number] Chris Parker [facility]) [address] [place] [address] 5 01/22/2025 15:25:32 01/24/2025 09:26:09 Congestive heart failure 14645301 I50.9 Type 1 brad betes mellitus 83102650 E10.9 Hepatosplenomegaly 24861 000 R16.2 54783 Health Concerns Section Related Observation LastModified by Organization Detai ls LastModified Time None Recorded Concern Status LastModified by Organization Details LastModified Time None Recorded Payers Encounter Date Sequence Insurance Name Policy Number Policy Pate Covered Member ID Pate Member ID Guarantor Name 01/22/2025 1 [place] Marciano Alonso [id number] Marciano Alonso 01/22/2025 2 [place] Marciano Alonso [id number] Marciano Recinos Gavin Notes Date Note Type Note Provider Name and Address Organization Details Recorded Time 01/22/2025 text/html COPDReported by PatientHPI:For associated symptoms, patient reportsobesity. For onset/timing, patient reportsmultiple times per day. For duration, patient reportshas noted for years.ROS as noted in the HPI ER follow up, discuss care and weight gain. Chris Parker, DO [address] [place] [address], [phone], [facility] 01/23/2025 14:50:00
--- OUTSIDE RECORDS SUMMARY | 2025-04-06 05:20 | XMS_ITS | Encounter Summary ---
Author Organization [facility] Address [address] [place] [address] Care Team Providers Care Certified Medical Dosimetrist Name Role Phone Cuba Solano MD Primary Care Provider [phone] [phone] Encounter Details Date Type Department Care Team (Latest Contact Info) Description 11/12/2004 Outpatient Historical [facility] [place] [address] Ash Lopez III, MD [address] [place] [address] JOINT PAIN-L/LEG (Primary Dx); LOC PRIM OSTEOART-L/LEG Social History Tobacco Use Types Packs/Day Years Used Date Smoking Tobacco: Never Assessed Sex and Gender Information Value Date Recorded Sex Assigned at Not on file Legal Sex Male 2:49 AM [employer] Gender Identity Not on file Sexual Orientation Not on file documented as of this encounter Plan of Treatment Not on file documented as of this encounter Visit Diagnoses Diagnosis Pain in joint, lower leg- Primary Primary localized osteoarthrosis, lower leg documented in this encounter Care Teams Certified Medical Dosimetrist Relationship Specialty Start Date End Date Cuba Solano MD PCP - General 07/11/09 documented as of this encounter
--- NOTE | 2025-04-06 05:21 | XRR_ITS ---
PROCEDURE INFORMATION: Exam: XR Chest Exam date and time: 04/06/2025 5:35 AM Age: 59 years old Clinical indication: Fever; Additional info: Fever, diarrhea, hypotension TECHNIQUE: Imaging protocol: Radiologic exam of the chest. Views: 1 view. COMPARISON: CR (CHEST, ) 03/13/2025 5:46 AM FINDINGS: Lungs: Limited study due to rotation. Extensive infiltrate in the left lower lobe, mild infiltrate in the right lower lobe. Pleural spaces: Unremarkable. No pleural effusion. No pneumothorax. Heart/Mediastinum: No change in the heart or mediastinum. Bones/joints: Deformity from right rib fractures observed. XR/XR chest 1V portable [id number] IMPRESSION: No significant change. Bibasilar infiltrates, left greater than right.
--- OUTSIDE RECORDS SUMMARY | 2025-04-06 05:21 | XMS_ITS | Encounter Summary ---
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
--- OUTSIDE RECORDS SUMMARY | 2025-04-06 05:21 | XMS_ITS | Continuity of Care Document ---
Author Organization [place] - Aravind Moncada [facility], Chas, [facility]) Address [address] [address] Assessment No assessment recorded. Plan of Treatment [...] Modified By Organization Details Last Modified Time 01/11/2025 [id number] States his abdominal pain still continues, and wants to re-start ozempic. Will restart. Sugars are high, increase glargine to 140 and aspart to 45 [email or web address] Not available 01/11/2025 14:28:07 Reason for Referral None Reported. Results Created Date Observation Date Name Description Value Unit Range Abnormal Flag Note LastModifiedBy Organization Detail LastModifiedTime 02/09/20 25 02/08/2025 imagi ng/di agnos tic resul t No observ ation record ed. [email or web address] [facility] [address] [place], [address], 02/12/2025 11:57:54 Result Notes None recorded. Problems Name Problem SNOMED Code Status Onset Date Resolution Date Notes Provider Name and Address Organization Details Recorded Time Essential hypertens ion 64751464 Active 2007 ESSENTIAL HYPERTENS ION; 8 2:16PM by Karla Joseph LPN, Office Visit; Promoted; acuity set as *; Not Available [facility] 03:17:47 Allergic rhinitis 27058478 Active 2007 ALLERGIC RHINITIS; 8 2:16PM by Karla Joseph LPN, Office Visit; Promoted; acuity set as *; Not Available [facility] 3 03:17:47 Persisten t insomnia 030101947 Active 2007 PERSISTEN T INSOMNIA; 8 2:16PM by Karla Joseph LPN, Office Visit; Promoted; acuity set as *; Not Available [facility] 3 03:17:52 Fracture of ankle 55342350 Active 2007 Ankle Fracture; 8 2:16PM by Karla Joseph LPN, Office Visit; Promoted; acuity set as *; Not Available [facility] 3 03:17:53 Peptic ulcer 60298857 Active 2007 PEPTIC ULCER; 8 2:16PM by Karla Joseph LPN, Office Visit; Promoted; acuity set as *; Not Available [facility] 3 03:17:53 Type 1 diabetes mellitus 70339420 Active 2007 DIABETES MELLITUS TYPE I; 8 2:16PM by Karla Joseph LPN, Office Visit; Promoted; acuity set as *; Not Available [facility] 3 03:17:58 Constipat ion 47678975 Active 2007 CONSTIPAT ION; 8 2:16PM by Karla Joseph LPN, Office Visit; Promoted; acuity set as *; Not Available [facility] 3 03:17:58 Amputated above knee 633353781 Active 2007 ABOVE KNEE AMPUTATIO N STATUS; 8 2:16PM by Karla Joseph LPN, Office Visit; Promoted; acuity set as *; Not Available [facility] 3 03:17:59 History of depressio n 489876970 Active 2007 DEPRESSIO N, NOS; 8 2:16PM by Karla Joseph LPN, Office Visit; Promoted; acuity set as *; Not Available [facility] 3 03:18:00 Hyperglyc emia due to type 2 diabetes mellitus 49977691868 9109 Active 2023 NATHANAEL tavarez, [facility] 4 13:09:52 Chronic back pain greater than three months duration 73455144270 2 Active 2023 NATHANAEL tavarez, [facility] 4 15:23:19 Blepharit is of right eyelid 04115750585 9103 Active 2024 NATHANAEL tavarez, [facility] 5 15:11:18 Congestiv e heart failure 32021631 Active 2024 NATHANAEL VICTORIA [facility] 5 16:21:48 Acute right otitis media 141159999 Active 2024 NATHANAEL VICTORIA [facility] 5 16:28:04 Pain of right shoulder joint 36176472822 044613 Active 2024 NATHANAEL VICTORIA [facility] 5 17:59:42 Hepatospl enomegaly 47411358 Active 2024 NATHANAEL VICTORIA [facility], [facility] 5 14:35:12 Thrombocy topenic disorder 055083450 Active 2024 NATHANAEL VICTORIA [facility] 5 14:35:13 Bilateral lower limb edema 637050489 Active 2024 MARLON HAEFFNER [facility] 5 15:35:25 Acute urinary tract infection 141600586 Active 2024 NATHANAEL VICTORIA [facility] 5 14:32:57 Sarcoidos is 49441343 Active 2024 NATHANAEL VICTORIA [facility] 5 14:33:01 Problem Notes None recorded. Medical Equipment None Reported. Allergies Allergen ID Allergen Name Allergen Category Reaction Reaction Severity Criticality Documentation Date Start Date Code Code System Note Provider Name and Address Organization Details Recorded Time 20643 Product containin g penicilli n (product) medicatio n Not available Not available Not available 11/28/2022 36292 8001 SNOMED Comme nt: Recor ded 09/01 2:16P M by Briseida Joseph LPN, Offic e Visit ; Promo joanne; Shruthi wade ce: *; ; Not Available [facility] 3 02:25:17 09021 Substance with sulfonami de structure and antibacte rial mechanism of action (substanc e) medicatio n Not available Not available Not available 03/22/2025 13183 8003 SNOMED Not Available david - [employer] - prod 5 06:48:45 49929 sulfameth oxazole / trimethop rim medicatio n rash Not available [facility] 03/22/20252007 39728 RxNorm Not Available david - External Data [...] Recorded 8 2:43PM by Jory George CMT, [employer] l Summary; Refill Quantity: 0; Not Available [...] Address Organization Details Last Updated DateTime 5 214773. 56 g 112 /min 18 /min 98.39 [degF] 98 % 127/52 mm[Hg] [facility] 5 14:26:07 Date Recorded Body weight Heart rate Respiratory rate Body temperature Oxygen saturation Systolic And Diastolic Provider Name and Address Organization Details Last Updated DateTime 5 979731. 89 g 112 /min 18 /min 98.4 [degF] 94 % 127/52 mm[Hg] [facility] 5 13:47:12 Social History None recorded. Functional Status None recorded. Mental Status None recorded. Family History Nothing Reported. Medical History No medical history recorded. Immunizations Vaccine Type Date Status Note Provider Nam e and Address Organization Details Recorded Time influenza, unspecified formulation 8 completed Not Available [facility] 04/05/2025 12:29:13 Influenza, split virus, trivalent, preservative 0 completed Not Available [facility] 04/05/2025 12:29:13 COVID-19, mRNA, LNP-S, PF, 100 mcg/0.5mL dose or 50 mcg/0.25mL dose 1 completed Not Available [facility] 04/05/2025 12:29:13 COVID-19, mRNA, LNP-S, PF, 100 mcg/0.5mL dose or 50 mcg/0.25mL dose 1 completed Not Available [facility] 04/05/2025 12:29:13 Influenza, split virus, quadrivalent, PF 1 completed Not Available [facility] 04/05/2025 12:29:13 COVID-19, mRNA, LNP-S, PF, 100 mcg/0.5mL dose or 50 mcg/0.25mL dose 1 completed Not Available [facility] 04/05/2025 12:29:13 Influenza, split virus, quadrivalent, PF 2 completed Not Available [facility] 04/05/2025 12:29:13 Influenza, split virus, quadrivalent, PF 3 completed Not Available [facility] 04/05/2025 12:29:13 Influenza, split virus, trivalent, preservative 4 completed Not Available [facility] 04/05/2025 12:29:13 COVID-19, mRNA, LNP-S, PF, 50 mcg/0.5 mL 5 completed Not Available [facility] 04/05/2025 12:29:13 Past Encounters Encounter ID Performer Location Encounter Start Date Encounter Closed Date Diagnosis/Indication Diagnosis SNOMED-CT Code Diagnosis ICD10 Code Diagnosis IMO Codes Diagnosis Note [id number] Chris Parker DO [facility]) [address] [place] [address] 12/14/2024 12:31:55 12/27/2024 18:42:02 [id number] Chris Parker DO [facility] ([facility]) [address] [place] [address] 01/11/2025 12:12:21 01/16/2025 10:56:12 Hyperglycemia due to type 2 diabetes mellitus 6088723188 19457 E11.65 Z79.4 Health Concerns Section Related Observation LastModified by Organization Detai ls LastModified Time None Recorded Concern Status LastModified by Organization Details LastModified Time None Recorded Payers Encounter Date Sequence Insurance Name Policy Number Policy Pate Covered Member ID Pate Member ID Guarantor Name 01/11/2025 1 [place] Marciano Alonso [id number] Marciano Alonso 01/11/2025 2 [place] Marciano Alonso [id number] Marciano Alonso Notes Date Note Type Note Provider Name and Address Organization Details Recorded Time 01/11/2025 text/html COPDReported by PatientHPI:For associated symptoms, patient reportsobesity. For onset/timing, patient reportsmultiple times per day. For duration, patient reportshas noted for years.ROS as noted in the HPI would like to discuss ozempic. Chris Parker DO [address] [place] [address], [phone], [facility] Luther [facility] [place] 01/15/2025 12:13:36 01/15/2025 text/html COPDReported by PatientHPI:For associated symptoms, patient reportsobesity. For onset/timing, patient reportsmultiple times per day. For duration, patient reportshas noted for years.ROS as noted in the [facility] ER follow up seen for chest pain. Chris Parker DO [address] [place] [address], [phone], [facility] Luther Nazario [facility] Chas [place] 01/15/2025 14:40:50
--- OUTSIDE RECORDS SUMMARY | 2025-04-06 05:21 | XMS_ITS | Continuity of Care Document ---
Author Organization [place] - Aravind Moncada [facility] Mikhail, Chas, [facility] ([facility]) Address [address] [place] [address] Assessment No assessment recorded. Plan of Treatment [...] Modified By Organization Details Last Modified Time 02/05/2025 [id number] Abdomen worse. Leaking fluid. Planning to see oncology/hematolo gy today, plan to have liver biopsy tomorrow. Paracentesis in three days. Will add dose of metolazone today Not available 02/05/2025 15:12:52 Reason for Referral None Reported. Results Created Date Observation Date Name Description Value Unit Range Abnormal Flag Note LastModifiedBy Organization Detail LastModifiedTime 02/09/20 25 02/08/2025 imagi ng/di agnos tic resul t No observ ation record ed. [id number] [facility] [address] [place], [address], 02/12/2025 11:57:54 Result Notes None recorded. Problems Name Problem SNOMED Code Status Onset Date Resolution Date Notes Provider Name and Address Organization Details Recorded Time Essential hypertens ion 56225338 Active 2007 ESSENTIAL HYPERTENS ION; 8 2:16PM by Karla Joseph LPN, Office Visit; Promoted; acuity set as *; Not Available [facility] 3 03:17:47 Allergic rhinitis 96810219 Active 2007 ALLERGIC RHINITIS; 8 2:16PM by Karla Joseph LPN, Office Visit; Promoted; acuity set as *; Not Available [facility] 3 03:17:47 Persisten t insomnia 936724477 Active 2007 PERSISTEN T INSOMNIA; 8 2:16PM by Karla Joseph LPN, Office Visit; Promoted; acuity set as *; Not Available [facility] 3 03:17:52 Fracture of ankle 75724661 Active 2007 Ankle Fracture; 8 2:16PM by Karla Joseph LPN, Office Visit; Promoted; acuity set as *; Not Available [facility] 3 03:17:53 Peptic ulcer 33676599 Active 2007 PEPTIC ULCER; 8 2:16PM by Karla Joseph LPN, Office Visit; Promoted; acuity set as *; Not Available [facility] 3 03:17:53 Type 1 diabetes mellitus 80944321 Active 2007 DIABETES MELLITUS TYPE I; 8 2:16PM by Karla Joseph LPN, Office Visit; Promoted; acuity set as *; Not Available [facility] 3 03:17:58 Constipat ion 31224941 Active 2007 CONSTIPAT ION; 8 2:16PM by Karla Joseph LPN, Office Visit; Promoted; acuity set as *; Not Available [facility] 3 03:17:58 Amputated above knee 233337271 Active 2007 ABOVE KNEE AMPUTATIO N STATUS; 8 2:16PM by Karla Joseph LPN, Office Visit; Promoted; acuity set as *; Not Available [facility] 3 03:17:59 History of depressio n 681596910 Active 2007 DEPRESSIO N, NOS; 8 2:16PM by Karla Joseph LPN, Office Visit; Promoted; acuity set as *; Not Available [facility] 3 03:18:00 Hyperglyc emia due to type 2 diabetes mellitus 24497611294 9109 Active 2023 NATHANAEL tavarez, [facility] 4 13:09:52 Chronic back pain greater than three months duration 36016054428 2 Active 2023 NATHANAEL tavarez, [facility] 4 15:23:19 Blepharit is of right eyelid 53042583295 9103 Active 2024 NATHANAEL VICTORIA [facility], [facility] 5 15:11:18 Congestiv e heart failure 24148154 Active 2024 NATHANAEL VICTORIA [facility] 5 16:21:48 Acute right otitis media 700920203 Active 2024 NATHANAEL VICTORIA [facility] 5 16:28:04 Pain of right shoulder joint 66212757142 721321 Active 2024 NATHANAEL VICTORIA [facility] 5 17:59:42 Hepatospl enomegaly 63361175 Active 2024 NATHANAEL VICTORIA [facility] 5 14:35:12 Thrombocy topenic disorder 521093906 Active 2024 NATHANAEL VICTORIA [facility] 5 14:35:13 Bilateral lower limb edema 454183466 Active 2024 MARLON HAEFFSARMAD [facility] 5 15:35:25 Acute urinary tract infection 661483125 Active 2024 NATHANAEL VICTORIA [facility] 5 14:32:57 Sarcoidos is 11217685 Active 2024 NATHANAEL VICTORIA [facility], [place] 5 14:33:01 Problem Notes None recorded. Medical Equipment None Reported. Allergies Allergen ID Allergen Name Allergen Category Reaction Reaction Severity Criticality Documentation Date Start Date Code Code System Note Provider Name and Address Organization Details Recorded Time 72343 Product containin g penicilli n (product) medicatio n Not available Not available Not available 11/28/2022 64978 8001 SNOMED Comme nt: Recor ded 09/01 2:16P M by Briseida Joseph LPN, Offic e Visit ; Promo joanne; Shruthi wade ce: *; ; Not Available [facility] 3 02:25:17 92839 Substance with sulfonami de structure and antibacte rial mechanism of action (substanc e) medicatio n Not available Not available Not available 03/22/2025 02846 8003 SNOMED Not Available david - [employer] - prod 5 06:48:45 88843 sulfameth oxazole / trimethop rim medicatio n rash Not available [facility] 03/22/20252007 45740 RxNorm Not Available [employer] - prod 5 06:50:41 Medications [...] Recorded 8 2:43PM by Jory George CMT, [employer] l Summary; Refill Quantity: 0; Not Available Not Available Not Available gemfibrozi l 600 mg tablet bid active 0; Recorded 8 2:23PM by Karla Jsoeph LPN, Office Visit; Not Available Not Available [...] Recorded 8 2:43PM by Jory George CMT, [employer] Summary; Refill Quantity: 0; Not Available [...] Recorded 8 2:43PM by Jory George CMT, [facility] Summary; Refill Quantity: 0; Not Available [...] Address Organization Details Last Updated DateTime 5 944814. 7 g 92 /min 20 /min 98.2 [degF] 93 % 102/61 mm[Hg] NATHANAEL VICTORIA [facility], [facility] 5 14:31:47 Social History None recorded. Functional Status None recorded. Mental Status None recorded. Family History Nothing Reported. Medical History No medical history recorded. Immunizations Vaccine Type Date Status Note Provider Nam e and Address Organization Details Recorded Time influenza, unspecified formulation 8 completed Not Available [facility] 04/05/2025 12:29:13 Influenza, split virus, trivalent, preservative 0 completed Not Available [facility] 04/05/2025 12:29:13 COVID-19, mRNA, LNP-S, PF, 100 mcg/0.5mL dose or 50 mcg/0.25mL dose 1 completed Not Available [facility] 04/05/2025 12:29:13 COVID-19, mRNA, LNP-S, PF, 100 mcg/0.5mL dose or 50 mcg/0.25mL dose 1 completed Not Available [facility] 04/05/2025 12:29:13 Influenza, split virus, quadrivalent, PF 1 completed Not Available [facility] 04/05/2025 12:29:13 COVID-19, mRNA, LNP-S, PF, 100 mcg/0.5mL dose or 50 mcg/0.25mL dose 1 completed Not Available [facility] 04/05/2025 12:29:13 Influenza, split virus, quadrivalent, PF 2 completed Not Available [facility] 04/05/2025 12:29:13 Influenza, split virus, quadrivalent, PF 3 completed Not Available [facility] 04/05/2025 12:29:13 Influenza, split virus, trivalent, preservative 4 completed Not Available [facility] 04/05/2025 12:29:13 COVID-19, mRNA, LNP-S, PF, 50 mcg/0.5 mL 5 completed Not Available [facility] 04/05/2025 12:29:13 Past Encounters Encounter ID Performer Location Encounter Start Date Encounter Closed Date Diagnosis/Indication Diagnosis SNOMED-CT Code Diagnosis ICD10 Code Diagnosis IMO Codes Diagnosis Note [id number] Chris Parker DO [facility] ([facility]) [address] [place] [address] 01/11/2025 12:12:21 01/16/2025 10:56:12 Hyperglycemia due to type 2 diabetes mellitus 5410060773 15072 E11.65 Z79.4 [id number] Chris Parker DO [facility]) [address] [place] [address] 01/15/2025 12:18:30 01/17/2025 08:49:31 Type 1 diabetes mellitus 02450576 E10.9 Hepatosplenomegaly 76667 000 R16.2 63369 Pneumonia 986765853 J18. 9 [id number] Chris Parker DO [facility] ([facility]) [address] [place], [place] [address] 01/18/2025 09:41:48 01/23/2025 16:25:08 [id number] Chris Parker DO [facility]) [address] [place] [address] 01/22/2025 15:25:32 01/24/2025 09:26:09 Congestive heart failure 91718427 I50.9 Type 1 brad betes mellitus 37937198 E10.9 Hepatosplenomegaly 35473 000 R16.2 82220 [id number] Chris Parker DO [facility] ([facility]) [address] [place] [address] 02/05/2025 14:15:56 02/06/2025 16:50:40 Hepatosplenomegaly 78072323 R16.2 11733 Ascites 370293508 R18.8 793579 Pancytopenia 896325606 D 61.818 [id number] Health Concerns Section Related Observation LastModified by Organization Detai ls LastModified Time None Recorded Concern Status LastModified by Organization Details LastModified Time None Recorded Payers Encounter Date Sequence Insurance Name Policy Number Policy Pate Covered Member ID Pate Member ID Guarantor Name 02/05/2025 1 [place] Marciano Alonso [id number] Marciano Alonso 02/05/2025 2 [place] Marciano Alonso [id number] Marciano Alonso Notes Date Note Type Note Provider Name and Address Organization Details Recorded Time 02/05/2025 text/html COPDReported by PatientHPI:For associated symptoms, patient reportsobesity. For onset/timing, patient reportsmultiple times per day. For duration, patient reportshas noted for years.ROS as noted in the HPI Planning to see oncology/hematology today, plan to have liver biopsy tomorrow. Chris Parker, DO [address] [place] [address], [phone], [facility] 02/05/2025 15:13:57
--- OUTSIDE RECORDS SUMMARY | 2025-04-06 05:21 | XMS_ITS | Encounter Summary ---
Author Organization [facility] Address [address] [place] [address] Care Team Providers Care Line Assigner Name Role Phone Cuba Solano MD Primary Care Provider [phone] Encounter Details Date Type Department Care Team (Latest Contact Info) Description 04/02/2004 Outpatient Historical [facility] [place] [id number] [address] Donte Borrego MD NO ADDRESS ON FILE DIABETES MELLITUS TYPE II UNCONTR UNCOMPL (Primary Dx); GOUT NOS Social History Tobacco Use Types Packs/Day Years Used Date Smoking Tobacco: Never Assessed Sex and Gender Information Value Date Recorded Sex Assigned at Not on file 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
--- OUTSIDE RECORDS SUMMARY | 2025-04-06 05:21 | XMS_ITS | Encounter Summary ---
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
--- OUTSIDE RECORDS SUMMARY | 2025-04-06 05:21 | XMS_ITS | Encounter Summary ---
Author Organization [facility] Address [address] [place] [address] Care Team Providers Care Professor Of Theater Name Role Phone Cuba Solano MD Primary Care Provider [phone] [phone] Encounter Details Date Type Department Care Team (Latest Contact Info) Description 03/30/[address] 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
--- OUTSIDE RECORDS SUMMARY | 2025-04-06 05:21 | XMS_ITS | Encounter Summary ---
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
--- OUTSIDE RECORDS SUMMARY | 2025-04-06 05:21 | XMS_ITS | Continuity of Care Document ---
Author Organization [place] - Aravind Moncada [facility] Mikhail, Chas, [facility]) Address [address] [facility] [place] [address] Assessment No assessment recorded. Plan of Treatment Reminders Order Date Submit Date Provider Last Modified By Organization Details Last Modified Time Details Appointments None record ed. Lab None record ed. Referral None record ed. Procedures None record ed. Surgeries None record ed. Imaging None record ed. Medication Orders None record ed. Patient TargetsNo targets recorded. Patient InstructionsNo instructions recorded. Reason for Referral None Reported. Results Created Date Observation Date Name Description Value Unit Range Abnormal Flag Note LastModifiedBy Organization Detail LastModifiedTime 02/09/20 25 02/08/2025 imagi ng/di agnos tic resul t No observ ation record ed. [email or web address] [facility] [address] [place], [address], 02/12/2025 11:57:54 Result Notes None recorded. Problems Name Problem SNOMED Code Status Onset Date Resolution Date Notes Provider Name and Address Organization Details Recorded Time Essential hypertens ion 73642864 Active 2007 ESSENTIAL HYPERTENS ION; 8 2:16PM by Karla Joseph LPN, Office Visit; Promoted; acuity set as *; Not Available [facility] 3 03:17:47 Allergic rhinitis 97851638 Active 2007 ALLERGIC RHINITIS; 8 2:16PM by Karla Joseph LPN, Office Visit; Promoted; acuity set as *; Not Available [facility] 3 03:17:47 Persisten t insomnia 186526962 Active 2007 PERSISTEN T INSOMNIA; 8 2:16PM by Karla Joseph LPN, Office Visit; Promoted; acuity set as *; Not Available [facility] 3 03:17:52 Fracture of ankle 84244134 Active 2007 Ankle Fracture; 8 2:16PM by Karla Joseph LPN, Office Visit; Promoted; acuity set as *; Not Available [facility] 3 03:17:53 Peptic ulcer 51447572 Active 2007 PEPTIC ULCER; 8 2:16PM by Karla Joseph LPN, Office Visit; Promoted; acuity set as *; Not Available [facility] 3 03:17:53 Type 1 diabetes mellitus 60188905 Active 2007 DIABETES MELLITUS TYPE I; 8 2:16PM by Karla Joseph LPN, Office Visit; Promoted; acuity set as *; Not Available [facility] 3 03:17:58 Constipat ion 31241787 Active 2007 CONSTIPAT ION; 8 2:16PM by Karla Joseph LPN, Office Visit; Promoted; acuity set as *; Not Available [facility] 3 03:17:58 Amputated above knee 230977392 Active 2007 ABOVE KNEE AMPUTATIO N STATUS; 8 2:16PM by Karla Joseph LPN, Office Visit; Promoted; acuity set as *; Not Available [facility] 3 03:17:59 History of depressio n 759943445 Active 2007 DEPRESSIO N, NOS; 8 2:16PM by Karla Joseph LPN, Office Visit; Promoted; acuity set as *; Not Available [facility] 3 03:18:00 Hyperglyc emia due to type 2 diabetes mellitus 62666919052 9109 Active [address] [facility] 4 13:09:52 Chronic back pain greater than three months duration 96657861895 2 Active [address] [facility] 4 15:23:19 Blepharit is of right eyelid 11852771722 9103 Active 2024 NATHANAEL VICTORIA [facility] 5 15:11:18 Congestiv e heart failure 10689767 Active 2024 NATHANAEL VICTORIA [facility] 5 16:21:48 Acute right otitis media 227919175 Active 2024 NATHANAEL VICTORIA [facility] 5 16:28:04 Pain of right shoulder joint 49742104051 420440 Active 2024 NATHANAEL VICTORIA [facility] 5 17:59:42 Hepatospl enomegaly 91951780 Active 2024 NATHANAEL VICTORIA [facility] 5 14:35:12 Thrombocy topenic disorder 479882694 Active 2024 NATHANAEL VICTORIA [facility] 5 14:35:13 Bilateral lower limb edema 399368216 Active 2024 MARLON HAEFFSARMAD [facility] 5 15:35:25 Acute urinary tract infection 225615162 Active 2024 NATHANAEL VICTORIA [facility] 5 14:32:57 Sarcoidos is 28388067 Active 2024 NATHANAEL VICTORIA [facility] 14:33:01 Problem Notes None recorded. Medical Equipment None Reported. Allergies Allergen ID Allergen Name Allergen Category Reaction Reaction Severity Criticality Documentation Date Start Date Code Code System Note Provider Name and Address Organization Details Recorded Time 27931 Product containin g penicilli n (product) medicatio n Not available Not available Not available 11/28/2022 17864 8001 SNOMED Comme nt: Recor ded 09/01 2:16P M by Briseida Joseph LPN, Offic e Visit ; Domingo rubio; Shruthi wade ce: *; ; Not Available [facility] 3 02:25:17 65575 Substance with sulfonami de structure and antibacte rial mechanism of action (substanc e) medicatio n Not available Not available Not available 03/22/2025 20403 8003 SNOMED Not Available david - [employer] - prod 5 06:48:45 26350 sulfameth oxazole / trimethop rim medicatio n rash Not available [facility] 03/22/20252007 58591 RxNorm Not Available [facility] [employer] - prod 5 06:50:41 [...] Address Organization Details Last Updated DateTime 5 624983. 51 g 90 /min 25 /min 98.7 [degF] 96 % 126/76 mm[Hg] NATHANAEL VICTORIA [facility] 5 17:28:46 Social History None recorded. Functional Status None recorded. Mental Status None recorded. Family History Nothing Reported. Medical History No medical history recorded. Immunizations Vaccine Type Date Status Note Provider Nam e and Address Organization Details Recorded Time influenza, unspecified formulation 8 completed Not Available [facility] 04/05/2025 12:29:13 Influenza, split virus, trivalent, preservative 0 completed Not Available [facility] 04/05/2025 12:29:13 COVID-19, mRNA, LNP-S, PF, 100 mcg/0.5mL dose or 50 mcg/0.25mL dose 1 completed Not Available [facility] 04/05/2025 12:29:13 COVID-19, mRNA, LNP-S, PF, 100 mcg/0.5mL dose or 50 mcg/0.25mL dose 1 completed Not Available [facility] 04/05/2025 12:29:13 Influenza, split virus, quadrivalent, PF 1 completed Not Available [facility] 04/05/2025 12:29:13 COVID-19, mRNA, LNP-S, PF, 100 mcg/0.5mL dose or 50 mcg/0.25mL dose 1 completed Not Available [facility] 04/05/2025 12:29:13 Influenza, split virus, quadrivalent, PF 2 completed Not Available [facility] 04/05/2025 12:29:13 Influenza, split virus, quadrivalent, PF 3 completed Not Available [facility] 04/05/2025 12:29:13 Influenza, split virus, trivalent, preservative 4 completed Not Available [facility] 04/05/2025 12:29:13 COVID-19, mRNA, LNP-S, PF, 50 mcg/0.5 mL 5 completed Not Available [facility] 04/05/2025 12:29:13 Past Encounters Encounter ID Performer Location Encounter Start Date Encounter Closed Date Diagnosis/Indication Diagnosis SNOMED-CT Code Diagnosis ICD10 Code Diagnosis IMO Codes Diagnosis Note [id number] Chris CarranzaftDO [facility] ([facility]) [address] [place] [address] 01/11/2025 12:12:21 01/16/2025 10:56:12 Hyperglycemia due to type 2 diabetes mellitus 1113242091 90234 E11.65 Z79.4 [id number] Chris DO Keith [facility] ([facility]) [address] [place] [address] 01/15/2025 12:18:30 01/17/2025 08:49:31 Type 1 diabetes mellitus 16366552 E10.9 Hepatosplenomegaly 36753 000 R16.2 20318 Pneumonia 696817942 J18. 9 9411998791 [id number] Chris DO Keith [facility] ([facility]) [address] [place] [address] 01/18/2025 09:41:48 01/23/2025 16:25:08 Health Concerns Section Related Observation LastModified by Organization Detai ls LastModified Time None Recorded Concern Status LastModified by Organization Details LastModified Time None Recorded Payers Encounter Date Sequence Insurance Name Policy Number Policy Pate Covered Member ID Pate Member ID Guarantor Name 01/18/2025 1 [place] Marciano Jorje Alonso [id number] Marciano Alonso 01/18/2025 2 [place] Marciano Alonso [id number] Marciano Alonso Notes Date Note Type Note Provider Name and Address Organization Details Recorded Time 01/22/2025 text/html COPDReported by PatientHPI:For associated symptoms, patient reportsobesity. For onset/timing, patient reportsmultiple times per day. For duration, patient reportshas noted for years.ROS as noted in the HPI ER follow up, discuss care and weight gain. Chris Parker DO [address] [place] [address], [phone], [facility] [place] [facility] 01/23/2025 14:50:00
--- OUTSIDE RECORDS SUMMARY | 2025-04-06 05:21 | XMS_ITS | Continuity of Care Document ---
Author Organization [place] - Aravind Moncada [facility], [place], [facility]) Address [address] [place] [address] Assessment No assessment recorded. Plan of Treatment [...] Modified By Organization Details Last Modified Time 01/15/2025 [id number] evaluated in ER for chest pain and dyspnea; found to have pneumonia hematology work up for pancytopenia found enlarged spleen. he has been referred to IR for liver biopsy. [email or web address] Not available 01/15/2025 14:38:50 Reason for Referral None Reported. Results Created Date Observation Date Name Description Value Unit Range Abnormal Flag Note LastModifiedBy Organization Detail LastModifiedTime 02/09/20 25 02/08/2025 imagi ng/di agnos tic resul t No observ ation record ed. [id number] [place] [address] [address] [place], [address], 02/12/2025 11:57:54 Result Notes None recorded. Problems Name Problem SNOMED Code Status Onset Date Resolution Date Notes Provider Name and Address Organization Details Recorded Time Essential hypertens ion 20286469 Active 2007 ESSENTIAL HYPERTENS ION; 8 2:16PM by Karla Joseph LPN, Office Visit; Promoted; acuity set as *; Not Available [facility] 3 03:17:47 Allergic rhinitis 89673581 Active 2007 ALLERGIC RHINITIS; 8 2:16PM by Karla Joseph LPN, Office Visit; Promoted; acuity set as *; Not Available [facility] 3 03:17:47 Persisten t insomnia 727753596 Active 2007 PERSISTEN T INSOMNIA; 8 2:16PM by Karla Joseph LPN, Office Visit; Promoted; acuity set as *; Not Available [facility] 3 03:17:52 Fracture of ankle 00809566 Active 2007 Ankle Fracture; 8 2:16PM by Kalra Joseph LPN, Office Visit; Promoted; acuity set as *; Not Available [facility] 3 03:17:53 Peptic ulcer 90116576 Active 2007 PEPTIC ULCER; 8 2:16PM by Karla Joseph LPN, Office Visit; Promoted; acuity set as *; Not Available [facility] 3 03:17:53 Type 1 diabetes mellitus 26490327 Active 2007 DIABETES MELLITUS TYPE I; 8 2:16PM by Karla Joseph LPN, Office Visit; Promoted; acuity set as *; [facility] Available [facility] 3 03:17:58 Constipat ion 60001549 Active 2007 CONSTIPAT ION; 8 2:16PM by Karla Joseph LPN, Office Visit; Promoted; acuity set as *; Not Available [facility] 3 03:17:58 Amputated above knee 541605230 Active 2007 ABOVE KNEE AMPUTATIO N STATUS; 8 2:16PM by Karla Joseph LPN, Office Visit; Promoted; acuity set as *; Not Available [facility] 3 03:17:59 History of depressio n 068762406 Active 2007 DEPRESSIO N, NOS; 8 2:16PM by Karla Joseph LPN, Office Visit; Promoted; acuity set as *; Not Available [facility] 3 03:18:00 Hyperglyc emia due to type 2 diabetes mellitus 57309793607 9109 Active 2023 NATHANAEL VICTORIA null, [facility] 4 13:09:52 Chronic back pain greater than three months duration 16265170239 2 Active 2023 NATHANAEL tavarez, [facility] 4 15:23:19 Blepharit is of right eyelid 88773699191 9103 Active [address] [facility] 5 15:11:18 Congestiv e heart failure 88941629 Active [address] [facility] 5 16:21:48 Acute right otitis media 215571512 Active [address] [facility] 5 16:28:04 Pain of right shoulder joint 97774514218 625345 Active [address] [facility] 5 17:59:42 Hepatospl enomegaly 80701919 Active [address] [facility] 5 14:35:12 Thrombocy topenic disorder 223747127 Active [address] [facility] 5 14:35:13 Bilateral lower limb edema 116422813 Active [address] [facility] 5 15:35:25 Acute urinary tract infection 910400448 Active [address] [facility] 5 14:32:57 Sarcoidos is 01937867 Active [address] [facility] 5 14:33:01 Problem Notes None recorded. Medical Equipment None Reported. Allergies Allergen ID Allergen Name Allergen Category Reaction Reaction Severity Criticality Documentation Date Start Date Code Code System Note Provider Name and Address Organization Details Recorded Time 79930 Product containin g penicilli n (product) medicatio n Not available Not available Not available 11/28/2022 92724 8001 SNOMED Comme nt: Recor ded 09/01 2:16P M by Briseida Joseph LPN, Offic e Visit ; Promo joanne; Signi mauro ce: *; ; Not Available [facility] 3 02:25:17 56452 Substance with sulfonami de structure and antibacte rial mechanism of action (substanc e) medicatio n Not available Not available Not available 03/22/2025 14900 8003 SNOMED Not Available [facility] [employer] [facility] 5 06:48:45 43391 sulfameth oxazole / trimethop rim medicatio n rash Not available [facility] 03/22/20252007 04017 RxNorm Not Available [facility] [employer] [facility] 5 06:50:41 Medications [...] Recorded 8 2:43PM by Jory George CMT, [facility] Summary; Refill Quantity: 0; Not Available [...] Address Organization Details Last Updated DateTime 5 884456. 89 g 112 /min 18 /min 98.4 [degF] 94 % 127/52 mm[Hg] NATHANAEL VICTORIA [facility] 5 13:47:12 Social History None recorded. Functional Status None recorded. Mental Status None recorded. Family History Nothing Reported. Medical History No medical history recorded. Immunizations Vaccine Type Date Status Note Provider Nam e and Address Organization Details Recorded Time influenza, unspecified formulation 8 completed Not Available [facility] 04/05/2025 12:29:13 Influenza, split virus, trivalent, preservative 0 completed Not Available [facility] 04/05/2025 12:29:13 COVID-19, mRNA, LNP-S, PF, 100 mcg/0.5mL dose or 50 mcg/0.25mL dose 1 completed Not Available [facility] 04/05/2025 12:29:13 COVID-19, mRNA, LNP-S, PF, 100 mcg/0.5mL dose or 50 mcg/0.25mL dose 1 completed Not Available [facility] 04/05/2025 12:29:13 Influenza, split virus, quadrivalent, PF 1 completed Not Available [facility] 04/05/2025 12:29:13 COVID-19, mRNA, LNP-S, PF, 100 mcg/0.5mL dose or 50 mcg/0.25mL dose 1 completed Not Available [facility] 04/05/2025 12:29:13 Influenza, split virus, quadrivalent, PF 2 completed Not Available [facility] 04/05/2025 12:29:13 Influenza, split virus, quadrivalent, PF 3 completed Not Available [facility] 04/05/2025 12:29:13 Influenza, split virus, trivalent, preservative 4 completed Not Available [facility] 04/05/2025 12:29:13 COVID-19, mRNA, LNP-S, PF, 50 mcg/0.5 mL 5 completed Not Available [facility] 04/05/2025 12:29:13 Past Encounters Encounter ID Performer Location Encounter Start Date Encounter Closed Date Diagnosis/Indication Diagnosis SNOMED-CT Code Diagnosis ICD10 Code Diagnosis IMO Codes Diagnosis Note [id number] Chris Parker DO [facility] ([facility]) [address] [place] [address] [id number] 01/11/2025 12:12:21 01/16/2025 10:56:12 Hyperglycemia due to type 2 diabetes mellitus 5093754785 68305 E11.65 Z79.4 [id number] Chris Parker DO [facility] ([facility]) [address] [place] [address] [phone] [id number] 01/15/2025 12:18:30 01/17/2025 08:49:31 Type 1 diabetes mellitus 32047858 E10.9 Hepatosplenomegaly 18765 000 R16.2 71529 Pneumonia 968444986 J18. 9 [id number] Health Concerns Section Related Observation LastModified by Organization Detai ls LastModified Time None Recorded Concern Status LastModified by Organization Details LastModified Time None Recorded Payers Encounter Date Sequence Insurance Name Policy Number Policy Pate Covered Member ID Pate Member ID Guarantor Name 01/15/2025 1 [place] Marciano Alonso [id number] Marciano Alonso 01/15/2025 2 [place] Marciano Alonso [id number] Marciano Alonso Notes Date Note Type Note Provider Name and Address Organization Details Recorded Time 01/15/2025 text/html COPDReported by PatientHPI:For associated symptoms, patient reportsobesity. For onset/timing, patient reportsmultiple times per day. For duration, patient reportshas noted for years.ROS as noted in the [facility] ER follow up seen for chest pain. Chris Parker DO [address] [place] [address], [phone], [facility], [place] 01/15/2025 14:40:50
--- OUTSIDE RECORDS SUMMARY | 2025-04-06 05:21 | XMS_ITS | Data Portability ---
Author Organization [place] - Aravind Moncada [facility], [place], [facility] Address [address] [place] [phone] Assessment No assessment recorded. Plan of Treatment [...] By Organization Details Last Modified Time 02/26/2025 [id number] Improving volume overload. No ascites on paracentesis. Responding well to bumex and aldactone. GI with concerns for sarcoidosis. They started Linzess for constipation Sugars too high increase tresiba to 90 and aspart to 30. Lab from last week showing hypokalemia. Labs redrawn this morning. [email or web address] Not available 02/27/2025 14:39:12 03/22/2025 [id number] Admitted with sepsis and volume overload. Evaluated by hematology and not able to use steroids with volume issues. He is planning to go to [place] to hear options for for granulomatous disease affecting his liver. Sleep study soon. Not available 03/25/2025 15:23:44 Reason for Referral None Reported. Results Created Date Observation Date Name Description Value Unit Range Abnormal Flag Note LastModifiedBy Organization Detail LastModifiedTime 02/09/2002/08/2025 teeteei ng/di jakobos tic resul t No observ ation record ed. [email or web address] [facility] [address] [place], [address], 02/12/2025 11:57:54 Result Notes None recorded. Problems Name Problem SNOMED Code Status Onset Date Resolution Date Notes Provider Name and Address Organization Details Recorded Time Essential hypertens ion 31528314 Active 2007 ESSENTIAL HYPERTENS ION; 8 2:16PM by Karla Joseph LPN, Office Visit; Promoted; acuity set as *; Not Available [facility] 3 03:17:47 Allergic rhinitis 45588430 Active 2007 ALLERGIC RHINITIS; 8 2:16PM by Karla Joseph LPN, Office Visit; Promoted; acuity set as *; Not Available [facility] 3 03:17:47 Persisten t insomnia 367844591 Active 2007 PERSISTEN T INSOMNIA; 8 2:16PM by Karla Joseph LPN, Office Visit; Promoted; acuity set as *; Not Available [facility] 3 03:17:52 Fracture of ankle 71991197 Active 2007 Ankle Fracture; 8 2:16PM by Karla Joseph LPN, Office Visit; Promoted; acuity set as *; Not Available [facility] 3 03:17:53 Peptic ulcer 08347007 Active 2007 PEPTIC ULCER; 8 2:16PM by Karla Joseph LPN, Office Visit; Promoted; acuity set as *; Not Available [facility] 3 03:17:53 Type 1 diabetes mellitus 27897649 Active 2007 DIABETES MELLITUS TYPE I; 8 2:16PM by Karla Joseph LPN, Office Visit; Promoted; acuity set as *; Not Available [facility] 3 03:17:58 Constipat ion 78258569 Active 2007 CONSTIPAT ION; 8 2:16PM by Karla Joseph LPN, Office Visit; Promoted; acuity set as *; Not Available [facility] 3 03:17:58 Amputated above knee 434261901 Active 2007 ABOVE KNEE AMPUTATIO N STATUS; 8 2:16PM by Karla Joseph LPN, Office Visit; Promoted; acuity set as *; Not Available [facility] 3 03:17:59 History of depressio n 561101358 Active 2007 DEPRESSIO N, NOS; 8 2:16PM by Karla Joseph LPN, Office Visit; Promoted; acuity set as *; Not Available [facility] 3 03:18:00 Hyperglyc emia due to type 2 diabetes mellitus 87785420693 9109 Active 2023 [facility] 4 13:09:52 Chronic back pain greater than three months duration 76230640595 2 Active 2023 [facility] 4 15:23:19 Blepharit is of right eyelid 05966592247 9103 Active 2024 [facility] 5 15:11:18 Congestiv e heart failure 24794523 Active 2024 NATHANAELLISA VICTORIA [facility] 5 16:21:48 Acute right otitis media 128554424 Active 2024 NATHANAEL VICTORIA [facility] 5 16:28:04 Pain of right shoulder joint 48990618397 935444 Active 2024 [facility] 5 17:59:42 Hepatospl enomegaly 61876280 Active 2024 [facility] 5 14:35:12 Thrombocy topenic disorder 194347444 Active 2024 [facility] 5 14:35:13 Bilateral lower limb edema 038396555 Active 2024 MARLON GRAJEDA [facility] 5 15:35:25 Acute urinary tract infection 989427796 Active 2024 [facility] 5 14:32:57 Sarcoidos is 78648826 Active 2024 [facility] 5 14:33:01 Problem Notes None recorded. Medical Equipment None Reported. Allergies Allergen ID Allergen Name Allergen Category Reaction Reaction Severity Criticality Documentation Date Start Date Code Code System Note Provider Name and Address Organization Details Recorded Time 20789 Product containin g penicilli n (product) medicatio n Not available Not available Not available 11/28/2022 62919 8001 SNOMED Comme nt: Recor ded 09/01 2:16P M by Briseida Joseph LPN, Offic e Visit ; Promo joanne; Signi mauro ce: *; ; Not Available [facility] 3 02:25:17 07202 Substance with sulfonami de structure and antibacte rial mechanism of action (substanc e) medicatio n Not available Not available Not available 03/22/2025 30158 8003 SNOMED Not Available david - External Data Service - prod 5 06:48:45 44661 sulfameth oxazole / trimethop rim medicatio n rash Not available high 03/22/20252007 71218 RxNorm Not Available david - External Data [...] Recorded 8 2:43PM by Jory George CMT, [employer] l Summary; Refill Quantity: 0; Not Available Not Available Not Available carbamazep ine 200 mg tablet two times daily 2007 active Recorded 8 2:43PM by Jory George CMT, [employer] l Summary; Refill Quantity: 0; Not Available [...] Recorded 8 2:43PM by Jory George CMT, [employer] l Summary; Refill Quantity: 0; Not Available [...] Recorded 8 2:43PM by Jory George CMT, [facility] Summary; Refill Quantity: 0; [...] Not Available Vitals Date Recorded Body weight Oxygen saturation Inhaled oxygen flow rate Heart rate Respiratory rate Body temperature Systolic And Diastolic Provider Name and Address Organization Details Last Updated DateTime 5 001741. 02 g 98 % 3 L/min 107 /min 18 /min 97.5 [degF] 129/53 mm[Hg] MARLON GRAJEDA [facility] 5 15:33:51 Date Recorded Body weight Heart rate Respiratory rate Body temperature Oxygen saturation Systolic And Diastolic Provider Name and Address Organization Details Last Updated DateTime 5 447544. 93 g 107 /min 18 /min 97.5 [degF] 95 % 129/53 mm[Hg] [facility] 5 16:01:18 Date Recorded Body weight Heart rate Respiratory rate Body temperature Oxygen saturation Systolic And Diastolic Provider Name and Address Organization Details Last Updated DateTime 5 397044. 01 g 76 /min 15 /min 98.1 [degF] 98 % 102/58 mm[Hg] [facility] 5 14:29:59 Date Recorded Body weight Heart rate Respiratory rate Body temperature Oxygen saturation Systolic And Diastolic Provider Name and Address Organization Details Last Updated DateTime 5 575352. 64 g 65 /min 18 /min 96.2 [degF] 100 % 123/67 mm[Hg] [facility] 5 15:00:57 Social History None recorded. Functional Status None recorded. Mental Status None recorded. Family History Nothing Reported. Medical History No medical history recorded. Immunizations Vaccine Type Date Status Note Provider Nam e and Address Organization Details Recorded Time influenza, unspecified formulation 8 completed Not Available [facility] 04/05/2025 12:29:13 Influenza, split virus, trivalent, preservative 0 completed Not Available [facility] 04/05/2025 12:29:13 COVID-19, mRNA, LNP-S, PF, 100 mcg/0.5mL dose or 50 mcg/0.25mL dose 1 completed Not Available [facility] 04/05/2025 12:29:13 COVID-19, mRNA, LNP-S, PF, 100 mcg/0.5mL dose or 50 mcg/0.25mL dose 1 completed Not Available [facility] 04/05/2025 12:29:13 Influenza, split virus, quadrivalent, PF 1 completed Not Available [facility] 04/05/2025 12:29:13 COVID-19, mRNA, LNP-S, PF, 100 mcg/0.5mL dose or 50 mcg/0.25mL dose 1 completed Not Available [facility] 04/05/2025 12:29:13 Influenza, split virus, quadrivalent, PF 2 completed Not Available [facility] 04/05/2025 12:29:13 Influenza, split virus, quadrivalent, PF 3 completed Not Available [facility] 04/05/2025 12:29:13 Influenza, split virus, trivalent, preservative 4 completed Not Available [facility] 04/05/2025 12:29:13 COVID-19, mRNA, LNP-S, PF, 50 mcg/0.5 mL 5 completed Not Available [facility] 04/05/2025 12:29:13 Past Encounters Encounter ID Performer Location Encounter Start Date Encounter Closed Date Diagnosis/Indication Diagnosis SNOMED-CT Code Diagnosis ICD10 Code Diagnosis IMO Codes Diagnosis Note [id number] Chris Parker DO [facility] ([facility]) [address] [place] [address] 02/29/2024 08:37:45 02/29/2024 15:46:46 Chronic obstructive pulmonary disease 17266563 J44.9 Amputated above knee 299 931438 Z89.619 left Essential hypertension 52935101 I10 Hyperglyce jaleel due to type 2 diabetes mellitus 4895044270 03490 E11.65 [id number] Chris Parker DO [facility] ([facility]) [address] [place], [place] [address] 03/14/2024 13:21:57 03/14/2024 16:53:47 Candidiasis of skin 53694674 B37.2 [id number] Chris Parker [facility] ([facility]) [address] [place], [place] [address] 04/11/2024 08:16:14 04/17/2024 11:22:39 History of depression 601903823 Z86.59 Amputated above knee 299 220027 Z89.619 left Hyperglyce jaleel due to type 2 diabetes mellitus 0063560674 29929 E11.65 [id number] Chris Parker DO [facility] ([facility]) [address] [place] [address] 05/08/2024 14:42:28 05/09/2024 14:13:27 History of depression 301443224 Z86.59 Hyperglyce jaleel due to type 2 diabetes mellitus 1936625089 47998 E11.65 Amputated above knee 299 595540 Z89.619 left [id number] Chris Parker DO [facility] ([facility]) [address] [place] [id number] 05/23/2024 13:28:32 05/25/2024 13:20:49 Hyperglycemia due to type 2 diabetes mellitus 7977082523 94070 E11.65 Blephariti s of right eyelid 2585207599 67960 H01.768 [id number] Chris Parker [facility] ([facility]) [address] [place] [id number] 06/05/2024 14:01:27 06/07/2024 12:06:41 History of depression 191509387 Z86.59 Congestive heart failure 31309345 I50.9 Amputated above knee 299 940021 Z89.619 left Essential hypertension 93951449 I10 Hyperglyce jaleel due to type 2 diabetes mellitus 9828600603 70325 E11.65 Persistent insomnia 1918 90338 G47.00 [id number] Chris Parker DO [facility] ([facility]) [address] [place], [place] [address] 06/15/2024 14:42:28 06/22/2024 06:57:36 Persistent insomnia 309940584 G47.00 Hyperglyce jaleel due to type 2 diabetes mellitus 3697527140 E11.65 Congestive heart failure 07475957 I50.9 Visual disturbance 23810 001 H53.9 Viral syndrome 055105714 B34.9 [id number] Chris Parker DO [facility] ([facility]) [address] [place] [address] 5 06/19/2024 14:32:25 06/27/2024 07:52:53 Congestive heart failure 23358137 I50.9 [id number] Chris Parker DO [facility] ([facility]) [address] [place] [address] 5 07/17/2024 14:49:03 07/19/2024 06:58:14 History of depression 582524797 Z86.59 Persistent insomnia 1918 19892 G47.00 Impacted c erumen in right ear 2535813980 529743 H61.21 Middle ear effusion 1004 408339 H74.8X9 left [id number] Chris Parker DO [facility] ([facility]) [address] [place], [place] [address] 2024 13:12:54 07/25/2024 07:05:48 Acute right otitis media 321084878 H66.91 Dysuria 98425797 R30.0 [id number] Chris Parker DO [facility] ([facility]) [address] [place] [address] 5 08/14/2024 13:21:30 08/23/2024 07:50:54 Hyperglycemia due to type 2 diabetes mellitus 7874153016 E11.65 Congestive heart failure 02783616 I50.9 Amputated above knee 299 292527 Z89.619 left [id number] Chris Parker DO [facility]) [address] [place] [address] 09/04/2024 08:10:50 09/10/2024 09:07:59 Chronic pain of right upper limb 5827777823 1081099 M25.511 G89.29 492635 [id number] Chris Parker [facility] ([facility]) [address] [place], [place] [address] 10/09/2024 10:23:33 10/17/2024 15:32:18 History of depression 071048909 Z86.59 Hyperglyce jaleel due to type 2 diabetes mellitus 4582147294 22184 E11.65 Congestive heart failure 99969074 I50.9 Chronic ba ck pain greater than three months duration 3227222498 02 G89.29 Thrombocyt openic disorder 402657013 D69.6 58209 [id number] Chris Parker [facility]) [address] [place], [place] [address] 10/30/2024 14:46:31 11/01/2024 11:47:18 History of depression 110072399 Z86.59 Hyperglyce jaleel due to type 2 diabetes mellitus 9761551601 16797 E11.65 Congestive heart failure 87819575 I50.9 [id number] Chris Parker [facility] ([facility]) [address] [place], [place] [address] 11/02/2024 08:05:32 11/07/2024 08:24:49 Pain of right shoulder joint 5214113135 6944198 M25.511 816949 [id number] Chris Parker [facility] ([facility]) [address] [place] [address] 11/23/2024 11:52:48 12/06/2024 08:38:17 Pain of right shoulder joint 2498578312 6439578 M25.511 357207 Supraspinatus tear 77845 6004 M75.101 20816285 Rupture of infraspinatus tendon 522189475 S46.811A 03438392 Rupture williamson bscapularis tendon 018398788 S46.811A 6064243490 Hyperglyce jaleel due to type 2 diabetes mellitus 2220257044 46362 E11.65 Z79.4 66608195 [id number] Chris Parker DO [facility] ([facility]) [address] [place] [address] 11/27/2024 14:15:45 12/06/2024 09:32:58 Thrombocytopenic disorder 726484853 D69.6 75927 Hepatosplenomegaly 31488 000 R16.2 09988 [id number] Chris Parker DO [facility] ([facility]) [address] [place] [address] 12/14/2024 12:31:55 12/27/2024 18:42:02 [id number] Chris Parker DO [facility] ([facility]) [address] [place] [address] 01/11/2025 12:12:21 01/16/2025 10:56:12 Hyperglycemia due to type 2 diabetes mellitus 8141881100 36895 E11.65 Z79.4 [id number] Chris Parker DO [facility] ([facility]) [address] [place] [address] 01/15/2025 12:18:30 01/17/2025 08:49:31 Type 1 diabetes mellitus 45505477 E10.9 Hepatosplenomegaly 85518 000 R16.2 12355 Pneumonia 622448325 J18. 9 [id number] [id number] Chris Parker DO [facility] ([facility]) [address] [place] [address] 01/18/2025 09:41:48 01/23/2025 16:25:08 [id number] Chris Parker DO [facility] ([facility]) [address] [place] [address] 5 01/22/2025 15:25:32 01/24/2025 09:26:09 Congestive heart failure 44989222 I50.9 Type 1 brad betes mellitus 55201030 E10.9 Hepatosplenomegaly 37507 000 R16.2 80971 [id number] Chris Parker DO [facility] ([facility]) [address] [place] [address] 02/05/2025 14:15:56 02/06/2025 16:50:40 Hepatosplenomegaly 56012522 R16.2 44697 Ascites 924969982 R18.8 770344 Pancytopenia 432107821 D 61.818 28796 [id number] Chris Parker DO [facility] ([facility]) [address] [place] [address] 02/08/2025 13:43:34 02/13/2025 12:53:21 Hyperglycemia due to type 2 diabetes mellitus 8926103958 03514 E11.65 Z79.4 Hepatosplenomegaly 48504 000 R16.2 23429 [id number] Chris Parker DO [facility] ([facility]) [address] [place], [place] [address] 02/12/2025 13:42:12 02/14/2025 09:05:11 Post-discharge follow-up 661003612 Z09 948930 Essential hypertension 86328026 I10 Congestive heart failure 46337129 I50.9 [id number] SUSU FOUNTAIN PA-C [facility] ([facility]) [address] [place] [address] 02/21/2025 13:40:55 03/20/2025 07:29:37 Bilateral lower limb edema 866843440 R60.0 2407340 SPIRONALAC TONE 50MG QDBUMEX 3MG PO BID, ON LINZOLID for skin cellulitis .monitor BMP for cr and electrolyt es. [id number] Chris Parker DO [facility] ([facility]) [address] [place] [address] 02/26/2025 14:48:04 02/28/2025 08:09:20 Type 1 diabetes mellitus 79885741 E10.9 Congestive heart failure 30917367 I50.9 Essential hypertension 39734479 I10 Cirrhosis of liver 66234 007 K74.69 5043080 Chronic constipation 236 696119 K59.09 315985 [id number] Chris Parker DO [facility] ([facility]) [address] [place] [address] 03/22/2025 09:18:02 03/26/2025 11:28:18 Post-discharge follow-up 686958821 Z09 842268 Acute urin constance tract infection 485904764 N39.0 558965 Essential hypertension 23285458 I10 Congestive heart failure 00818726 I50.9 Hyperglyce jaleel due to type 2 diabetes mellitus 9840809933 34977 E11.65 Z79.4 Sarcoidosis 91134256 D86 .9 65897 Health Concerns Section Related Observation LastModified by Organization Detai ls LastModified Time None Recorded Concern Status LastModified by Organization Details LastModified Time None Recorded Advance Directives Directive None Recorded Payers Insurance Date Sequence Insurance Name Policy Number Policy Pate Covered Member ID Pate Member ID Guarantor Name 02/29/2024 1 *SELF PAY* Ti jt Alonso 04/05/2025 [place] [facility] (MEDICARE) Marciano Morater [id number] Marciano Morater 04/05/2025 [place] [facility] ) Marciano Recinos [place] [id number] Marciano Recinos [place] 04/05/2025 2 [place] Marciano Recinos [place] [id number] Marciano Recinos [place] 04/05/2025 1 [place] B[place] [facility] Marciano Morater [id number] Marciano Morater Notes Date Note Type Note Provider Name and Address Organization Details Recorded Time 5 text/html EdemaReported by PatientHPIFor quality, patient reportspainfulbut reportslegs swell equallyandimproves overnight. For location, patient reportsble. For severity, patient reportsmoderate. For duration, patient reportsconstant. Pt with extreme edema from legs up to abdomen. On bumex and sprinolactone.Diabetic. Chris Parker, DO [address] [address], [phone], [facility] 15:13:55 5 text/html COPDReported by PatientHPI:For associated symptoms, patient reportsobesity. For onset/timing, patient reportsmultiple times per day. For duration, patient reportshas noted for years.ROS as noted in the HPI staff wants to discuss weight and sugars. Chris Parker DO [address] [place] [address], [phone], [facility], [place]. 02/27/2025 14:39:25 5 text/html COPDReported by PatientHPI:For associated symptoms, patient reportsobesity. For onset/timing, patient reportsmultiple times per day. For duration, patient reportshas noted for years.ROS as noted in the HPI ER follow up after hallucinatoins. Chris Parker DO [address] [place] [address], [phone], [facility], [place]. 03/25/2025 15:23:56 5 text/html COPDReported by PatientHPI:For associated symptoms, patient reportsobesity. For onset/timing, patient reportsmultiple times per day. For duration, patient reportshas noted for years.ROS as noted in the HPI staff reports sugars are too high. Not Available Not Available Not Available
--- OUTSIDE RECORDS SUMMARY | 2025-04-06 05:21 | XMS_ITS | Continuity of Care Document ---
Author Organization [place] - Aravind Moncada [facility] Mikhail, Chas, [facility]) Address [address] [facility] [place] [address] Assessment No assessment recorded. Plan of Treatment [...] resul t No observ ation record ed. [email or web address] [facility] [address] [place], [address], 02/12/2025 11:57:54 Result Notes None recorded. Problems Name Problem SNOMED Code Status Onset Date Resolution Date Notes Provider Name and Address Organization Details Recorded Time Essential hypertens ion 59398420 Active 2007 ESSENTIAL HYPERTENS ION; 8 2:16PM by Karla Joseph LPN, Office Visit; Promoted; acuity set as *; Not Available [facility] 3 03:17:47 Allergic rhinitis 21130879 Active 2007 ALLERGIC RHINITIS; 8 2:16PM by Karla Joseph LPN, Office Visit; Promoted; acuity set as *; Not Available [facility] 3 03:17:47 Persisten t insomnia 326506046 Active 2007 PERSISTEN T INSOMNIA; 8 2:16PM by Karla Joseph LPN, Office Visit; Promoted; acuity set as *; Not Available [facility] 3 03:17:52 Fracture of ankle 92436488 Active 2007 Ankle Fracture; 8 2:16PM by Karla Joseph LPN, Office Visit; Promoted; acuity set as *; Not Available [facility] 3 03:17:53 Peptic ulcer 78660951 Active 2007 PEPTIC ULCER; 8 2:16PM by Karla Joseph LPN, Office Visit; Promoted; acuity set as *; Not Available [facility] 3 03:17:53 Type 1 diabetes mellitus 51624147 Active 2007 DIABETES MELLITUS TYPE I; 8 2:16PM by Karla Joseph LPN, Office Visit; Promoted; acuity set as *; Not Available [facility] 3 03:17:58 Constipat ion 62046814 Active 2007 CONSTIPAT ION; 8 2:16PM by Karla Joseph LPN, Office Visit; Promoted; acuity set as *; Not Available [facility] 3 03:17:58 Amputated above knee 699718652 Active 2007 ABOVE KNEE AMPUTATIO N STATUS; 8 2:16PM by Karla Joseph LPN, Office Visit; Promoted; acuity set as *; Not Available [facility] 3 03:17:59 History of depressio n 440047748 Active 2007 DEPRESSIO N, NOS; 8 2:16PM by Karla Joseph LPN, Office Visit; Promoted; acuity set as *; Not Available [facility] 3 03:18:00 Hyperglyc emia due to type 2 diabetes mellitus 06670496291 9109 Active 2023 NATHANAEL tavarez [facility] 4 13:09:52 Chronic back pain greater than three months duration 26262111053 2 Active 2023 NATHANAEL tavarez [facility] 4 15:23:19 Blepharit is of right eyelid 29985736847 9103 Active 2024 NATHANAEL VICTORIA [facility] 5 15:11:18 Congestiv e heart failure 40001071 Active 2024 NATHANAEL VICTORIA [facility] 5 16:21:48 Acute right otitis media 520672304 Active 2024 NATHANAEL VICTORIA [facility] 5 16:28:04 Pain of right shoulder joint 82402937700 412612 Active 2024 NATHANAEL VICTORIA [facility] 5 17:59:42 Hepatospl enomegaly 62934119 Active 2024 NATHANAEL VICTORIA [facility] 5 14:35:12 Thrombocy topenic disorder 655691149 Active 2024 NATHANAEL VICTORIA [facility] 5 14:35:13 Bilateral lower limb edema 480572350 Active 2024 MARLON HAEFFSARMAD [facility] 5 15:35:25 Acute urinary tract infection 945322782 Active 2024 NATHANAEL VICTORIA [facility] 5 14:32:57 Sarcoidos is 59274153 Active 2024 NATHANAEL VICTORIA [facility] 14:33:01 Problem Notes None recorded. Medical Equipment None Reported. Allergies Allergen ID Allergen Name Allergen Category Reaction Reaction Severity Criticality Documentation Date Start Date Code Code System Note Provider Name and Address Organization Details Recorded Time 07770 Product containin g penicilli n (product) medicatio n Not available Not available Not available 11/28/2022 41888 8001 SNOMED Comme nt: Recor ded 09/01 2:16P M by Briseida Joseph LPN, Offic e Visit ; Domingo rubio; Shruthi wade ce: *; ; Not Available [facility] 3 02:25:17 48726 Substance with sulfonami de structure and antibacte rial mechanism of action (substanc e) medicatio n Not available Not available Not available 03/22/2025 18258 8003 SNOMED Not Available david - External Data Service - prod 5 06:48:45 53577 sulfameth oxazole / trimethop rim medicatio n rash Not available [facility] 03/22/20252007 72601 RxNorm Not Available bonduel hiogi External Data [employer] - prod 5 06:50:41 [...] active 0; Recorded 8 2:23PM by Karla oJseph LPN, Office Visit; Not Available Not Available Not Available Vitals Date Recorded Body weight Oxygen saturation Inhaled oxygen flow rate Heart rate Respiratory rate Body temperature Systolic And Diastolic Provider Name and Address Organization Details Last Updated DateTime 5 340472. 02 g 98 % 3 L/min 107 /min 18 /min 97.5 [degF] 129/53 mm[Hg] MARLON GRAJEDA [facility] 5 15:33:51 Date Recorded Body weight Heart rate Respiratory rate Body temperature Oxygen saturation Systolic And Diastolic Provider Name and Address Organization Details Last Updated DateTime 5 198244. 93 g 107 /min 18 /min 97.5 [degF] 95 % 129/53 mm[Hg] NATHANAEL VICTORIA [facility] 5 16:01:18 Social History None recorded. Functional Status None recorded. Mental Status None recorded. Family History Nothing Reported. Medical History No medical history recorded. Immunizations Vaccine Type Date Status Note Provider Nam e and Address Organization Details Recorded Time influenza, unspecified formulation 8 completed Not Available [facility] 04/05/2025 12:29:13 Influenza, split virus, trivalent, preservative 0 completed Not Available [facility] 04/05/2025 12:29:13 COVID-19, mRNA, LNP-S, PF, 100 mcg/0.5mL dose or 50 mcg/0.25mL dose 1 completed Not Available [facility] 04/05/2025 12:29:13 COVID-19, mRNA, LNP-S, PF, 100 mcg/0.5mL dose or 50 mcg/0.25mL dose 1 completed Not Available [facility] 04/05/2025 12:29:13 Influenza, split virus, quadrivalent, PF 1 completed Not Available [facility] 04/05/2025 12:29:13 COVID-19, mRNA, LNP-S, PF, 100 mcg/0.5mL dose or 50 mcg/0.25mL dose 1 completed Not Available [facility] 04/05/2025 12:29:13 Influenza, split virus, quadrivalent, PF 2 completed Not Available [facility] 04/05/2025 12:29:13 Influenza, split virus, quadrivalent, PF 3 completed Not Available [facility] 04/05/2025 12:29:13 Influenza, split virus, trivalent, preservative 4 completed Not Available [facility] 04/05/2025 12:29:13 COVID-19, mRNA, LNP-S, PF, 50 mcg/0.5 mL 5 completed Not Available [facility] 04/05/2025 12:29:13 Past Encounters Encounter ID Performer Location Encounter Start Date Encounter Closed Date Diagnosis/Indication Diagnosis SNOMED-CT Code Diagnosis ICD10 Code Diagnosis IMO Codes Diagnosis Note [id number] Chris Parker DO [facility] ([facility]) [address] [place] [address] 5 01/22/2025 15:25:32 01/24/2025 09:26:09 Congestive heart failure 46908505 I50.9 Type 1 brad betes mellitus 10582253 E10.9 Hepatosplenomegaly 92153 000 R16.2 15263 [id number] Chris Parker DO [facility] ([facility]) [address] [place], [place] [address] 02/05/2025 14:15:56 02/06/2025 16:50:40 Hepatosplenomegaly 16955973 R16.2 30725 Ascites 818713053 R18.8 933437 Pancytopenia 346618823 D 61.818 [id number] Chris Parker DO [facility] ([facility]) [address] [place] [address] 02/08/2025 13:43:34 02/13/2025 12:53:21 Hyperglycemia due to type 2 diabetes mellitus 9549576429 56967 E11.65 Z79.4 Hepatosplenomegaly 80683 000 R16.2 17852 [id number] Chris Parker DO [facility] ([facility]) [address] [place] [address] 02/12/2025 13:42:12 02/14/2025 09:05:11 Post-discharge follow-up 006672302 Z09 472658 Essential hypertension 18141250 I10 Congestive heart failure 10392907 I50.9 [id number] SUSU FOUNTAIN PA-C [facility] ([facility]) [address] [place] [address] [place] [address] 02/21/2025 13:40:55 03/20/2025 07:29:37 Bilateral lower limb edema 214020775 R60.0 [id number] SPIRONALAC TONE 50MG QDBUMEX 3MG PO BID, ON LINZOLID for skin cellulitis .monitor BMP for cr and electrolyt es. Health Concerns Section Related Observation LastModified by Organization Detai ls LastModified Time None Recorded Concern Status LastModified by Organization Details LastModified Time None Recorded Payers Encounter Date Sequence Insurance Name Policy Number Policy Pate Covered Member ID Pate Member ID Guarantor Name 02/21/2025 1 [place] Marciano Alonso [id number] Marciano Alonso 02/21/2025 2 [place] Marciano Alonso [id number] Marciano Alonso Notes Date Note Type Note Provider Name and Address Organization Details Recorded Time 02/21/2025 text/html EdemaReported by PatientHPIFor quality, patient reportspainfulbut reportslegs swell equallyandimproves overnight. For location, patient reportsble. For severity, patient reportsmoderate. For duration, patient reportsconstant. Pt with extreme edema from legs up to abdomen. On bumex and sprinolactone.Diabetic. Chris Parker DO [address] [place] [address], [phone], [facility] 03/19/2025 15:13:55 02/26/2025 text/html COPDReported by PatientHPI:For associated symptoms, patient reportsobesity. For onset/timing, patient reportsmultiple times per day. For duration, patient reportshas noted for years.ROS as noted in the HPI staff wants to discuss weight and sugars. Chris Parker DO [address] [place] [address], [phone], [facility] 02/27/2025 14:39:25
[2025-04-06 05:30] LABS: Hematocrit 27.6 % (37-53); Hemoglobin 8.90 g/dL (11.27-16.99); Mean Corpuscular HGB Conc 32.2 g/dL (30-55); Mean Corpuscular Hemoglobin 25.2 pg (27-33); Mean Corpuscular Volume 78.2 fl (82-101); Nucleated Red Blood Cells % 0 %; Platelet Count 126 10^3/cmm (157-399); Red Blood Count 3.53 10^6/uL (3.85-5.65); White Blood Count 7.78 10^3/uL (3.29-11.43)
--- NOTE | 2025-04-06 05:31 | W.ED.FEVER ---
Documented by User: Baudilio Greenberg MD 04/06/25 05:46 HPI - Fever General: Chief Complaint: Fever Stated Complaint: Fever Time Seen by Provider: 04/06/25 05:10 History of Present Illness: 59-year-old male with a past medical history significant for pancytopenia, left above-knee amputation, chronic indwelling Constantino catheter, hypertension, diabetes, atrial fibrillation, morbid obesity, pancytopenia, chronic granulomatous disease, chronic ulcerations to the left hip and suprapubic region, presenting to the emergency department with fever generalized bodyaches and diarrhea x 2 days, half-way staff reported a fever of 101, EMS reported a temperature of 99.6 the patient was bundled in multiple blankets on arrival, he was apparently mildly hypotensive when they arrived to 90s over 50s which had somewhat improved with some IV fluid approximately 100 cc given during transit. Patient endorses body aches all over, endorses mild shortness of breath, denies chest pain. Related Data Home Medications ?Medication ?Instructions ?Recorded ?Confirmed allopurinol 300 mg tablet 300 mg PO DAILY 05/08/19 04/06/25 cholecalciferol (vitamin D3) 25 1,000 unit PO DAILY 05/08/19 04/06/25 mcg (1,000 unit) capsule montelukast 10 mg tablet 10 mg PO BEDTIME 05/08/19 04/06/25 metoclopramide HCl 10 mg tablet 10 mg PO QID Indigestion 04/16/22 04/06/25 (Reglan) multivit-minerals no.60-ferrous 1 tab PO DAILY 10/16/22 04/06/25 fumarate-folic acid 27 mg-1 mg tablet (Niva-Plus) metoprolol tartrate 100 mg tablet 100 mg PO BID 12/28/23 04/06/25 magnesium hydroxide 400 mg/5 mL 30 ml PO .Q72H PRN Constipation 04/24/24 04/06/25 oral suspension (Milk of Magnesia) sodium phosphates 19 gram-7 118 ml [place] DAILY PRN Constipation 04/24/24 04/06/25 gram/118 mL enema (Fleet Enema) tamsulosin 0.4 mg capsule (Flomax) 0.4 mg PO BID 04/24/24 04/06/25 acetaminophen 500 mg capsule 500 mg PO Q6H PRN pain or fever 09/08/24 04/06/25 budesonide 160 mcg-glycopyr 9 2 inh inhalation BID 09/08/24 04/06/25 mcg-formot 4.8 mcg/actuation HFA inhaler (Breztri Aerosphere) albuterol sulfate 2.5 mg/3 mL 2.5 mg inhalation Q6H PRN Dyspnea 02/05/25 04/06/25 (0.083 %) solution for nebulization atorvastatin 20 mg tablet 20 mg PO DAILY 02/05/25 04/06/25 brinzolamide 1 % eye 1 drp ophthalmic (eye) BID 02/05/25 04/06/25 drops,suspension latanoprost 0.005 % eye drops 1 drp ophthalmic (eye) BEDTIME 02/05/25 04/06/25 triamcinolone acetonide 0.1 % 1 applic topical BID PRN skin 02/09/25 04/06/25 topical cream irritation on ears amiodarone 400 mg tablet 400 mg PO QAM 02/14/25 04/06/25 bisacodyl 5 mg tablet 10 mg PO DAILY PRN Constipation 02/14/25 04/06/25 miscellaneous medical supply 02/14/25 04/06/25 (Ocusoft Eyelid Cleansing Pads) semaglutide 1 mg/dose (4 mg/3 mL) 1 mg SUBCUT Q7D 02/14/25 04/06/25 subcutaneous pen injector (Ozempic) insulin aspart U-100 100 unit/mL 30 unit SUBCUT TID 03/13/25 04/06/25 (3 mL) subcutaneous pen insulin degludec 100 unit/mL (3 120 unit SUBCUT BEDTIME 03/13/25 04/06/25 mL) subcutaneous pen (Tresiba FlexTouch U-100 insulin) menthol 0.8 % topical powder (Gold See Rx Instructions .Route .COMPLEX 03/13/25 04/06/25 Castillo Medicated Body) ondansetron 8 mg disintegrating 8 mg PO Q6H PRN Nausea And Vomiting 03/13/25 04/06/25 tablet potassium chloride 20 mEq 20 meq PO DAILY 03/13/25 04/06/25 tablet,extended release(part/cryst) spironolactone 50 mg tablet 50 mg PO DAILY 03/13/25 04/06/25 omeprazole 40 mg capsule,delayed 40 mg PO BID 03/19/25 04/06/25 release bumetanide 1 mg tablet 3 mg PO BID 03/21/25 04/06/25 hydrocodone 5 mg-acetaminophen 325 1 tab PO .Q8H PRN pain 04/06/25 04/06/25 mg tablet lidocaine 4 % topical patch 1 patch topical BID 04/06/25 04/06/25 (Lidocaine Pain Relief) lubiprostone 8 mcg capsule 8 mcg PO BID 04/06/25 04/06/25 miscellaneous medical supply 04/06/25 04/06/25 (Ocusoft Eyelid Cleansing Pads) semaglutide 2 mg/dose (8 mg/3 mL) 2 mg SUBCUT Q7D 04/06/25 04/06/25 subcutaneous pen injector (Ozempic) white petrolatum-mineral oil 94 1 applic ophthalmic (eye) BEDTIME 04/06/25 04/06/25 %-3 % eye ointment (GenTeal Tears Severe (petrolatum-mineral oil)) Previous Rx's ?Medication ?Instructions ?Recorded fluticasone propionate 50 1 spray intranasal BID #15.8 mL 07/18/19 mcg/actuation nasal spray,suspension pregabalin 50 mg capsule 50 mg PO TID #90 caps 03/22/24 diltiazem HCl 180 mg 180 mg PO DAILY #30 caps 02/11/25 capsule,extended release 24 hr (Cardizem CD) apixaban 5 mg tablet (Eliquis) 5 mg PO BID #180 tabs 03/22/25 Allergies Allergy/AdvReac Type Severity Reaction Status Date / Time Penicillins Allergy ALGY-Hives Verified 03/20/25 10:49 Sulfa (Sulfonamide Allergy ALGY-Hives Verified 03/20/25 10:49 Antibiotics) PFS ED PFSH: Medical History Chronic indwelling Constantino catheter Sleep apnea, unspecified Constipation Dry eye syndrome of unspecified lacrimal gland Unspecified glaucoma Gastro-esophageal reflux disease without esophagitis Benign prostatic hyperplasia without lower urinary tract symptoms Gout, unspecified Hyperlipidemia, unspecified 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 heart failure FCI (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 of 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 Muscle weakness (generalized) COPD (chronic obstructive pulmonary disease) 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 Chronic atrial fibrillation, unspecified Open wound of left lower quadrant of abdominal wall without penetration into peritoneal cavity Intertriginous dermatitis associated with moisture Morbid obesity Atrial flutter Encounter for screening colonoscopy Repeat screening colonoscopy in 10 years unless otherwise specified Chronic low back pain Chronic right shoulder pain Diabetes mellitus Shoulder pain BILATERAL Encounter for long-term use of opiate analgesic Right knee pain Amputation above knee Left Diabetes type 2, controlled Essential hypertension Dysuria-frequency syndrome Seizure BPH (benign prostatic hyperplasia) Primary osteoarthritis of both knees r knee Obstructive sleep apnea syndrome Surgical History History of left above knee amputation History of shoulder surgery 2001 x 2 L shoulder Family History Other Heart disease Hypertension Social History Smoking and tobacco/nicotine status: never used tobacco/nicotine Quit status (tobacco/nicotine): not considering quitting Second hand smoke exposure: No Alcohol intake: never Substance/Drug Use: never Additional social history: Patient chews a can of tobacco daily. 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 Physical Exam Narrative: EXAM NARRATIVE: Gen: A&Ox4, no acute distress, nontoxic appearing, morbidly obese HEENT: Normocephalic, atraumatic, no scleral icterus, external ears normal, moist mucous membranes Neck: Supple, full range of motion, no observable masses Lungs: No Respiratory distress, Lungs clear to auscultation bilaterally no rales, rhonchi, wheezing CV: Mildly tachycardic regular rhythm, no murmur, Abdomen: Soft, nondistended, nontender to palpation, indwelling Constantino catheter changed 1 week ago MSK: No significant pitting edema to the distal right lower extremity, foot drop noted, left lower extremity above-knee amputation no wounds to the stump Skin: ulceration to the suprapubic region without purulence or significant erythema/induration. Ulceration to the left hip with Mepilex dressing, no surrounding erythema or purulence Neuro: Alert and oriented, no slurred speech, sensation and strength grossly intact all 4 extremities Psych: Appropriate for situation. Course Vital Signs: Vital signs: Vital Signs Temperature 101 F H 04/06/25 05:16 Pulse Rate 101 H 04/06/25 05:16 Respiratory Rate 20 H 04/06/25 05:16 Blood Pressure 109/52 04/06/25 05:16 Pulse Oximetry 95 04/06/25 05:16 Oxygen Delivery Me thod Room Air 04/06/25 05:16 MDM - Fever Medical Decision Making This is a chronically ill 59-year-old male with an extensive medical history including morbid obesity chronic indwelling Constantino catheter chronic granulomatous disease and pancytopenia, left above-knee amputation, chronic nonhealing ulcers, atrial fibrillation, hypertension and diabetes, presenting to the emergency department with fever in the setting of body aches and mild diarrhea, skin exam difficult due to body habitus but multiple staff revealed existing ulcers that do not appear acutely infected, patient was mildly hypotensive on arrival which was consistent with blood pressure from half-way, he does not appear acutely toxic, will obtain sepsis workup, empiric antibiotics and IV fluids, reassess for disposition Lab Data 04/06/25 05:10 04/06/25 05:10 Radiology Impressions Chest X-Ray 04/06/25 05:21 IMPRESSION: No significant change. Bibasilar infiltrates, left greater than right. Laboratory Results WBC 7.78 10^3/uL (3.29-11.43) 04/06/25 05:10 RBC 3.53 10^6/uL (3.85-5.65) L 04/06/25 05:10 Hgb 8.90 g/dL (11.27-16.99) L 04/06/25 05:10 Hct 27.6 % (37-53) L 04/06/25 05:10 MCV 78.2 fl (82-101) L 04/06/25 05:10 MCH 25.2 pg (27-33) L 04/06/25 05:10 MCHC 32.2 g/dL (30-55) 04/06/25 05:10 RDW 20.5 % (12.1-15.1) H 04/06/25 05:10 Plt Count 126 10^3/cmm (157-399) L 04/06/25 05:10 MPV Not Reportable 04/06/25 05:10 Neut % (Auto) 82.3 % 04/06/25 05:10 Lymph % (Auto) 4.8 % 04/06/25 05:10 [place] % (Auto) 10.7 % 04/06/25 05:10 Eos % (Auto) 0.6 % 04/06/25 05:10 Baso % (Auto) 0.3 % 04/06/25 05:10 Neut # (Auto) 6.41 10^3/uL (1.8-7.7) 04/06/25 05:10 Lymph # (Auto) 0.4 10^3/uL (0.8-4.8) L 04/06/25 05:10 [place] # (Auto) 0.8 10^3/uL (0.2-0.9) 04/06/25 05:10 Eos # (Auto) 0.1 10^3/uL (0.0-0.8) 04/06/25 05:10 Baso # (Auto) 0.0 10^3/uL (0.0-0.1) 04/06/25 05:10 Nucleated RBC % (auto) 0 % 04/06/25 05:10 Nucleated RBCs # 0.0 /100WBC 04/06/25 05:10 Sodium 131 mmol/L (136-145) L 04/06/25 05:10 Potassium 4.2 mmol/L (3.5-5.1) 04/06/25 05:10 Chloride 94 mmol/L (98-107) L 04/06/25 05:10 Carbon Dioxide 21 mmol/L (22-29) L 04/06/25 05:10 Anion Gap 20.2 (5-19) H 04/06/25 05:10 BUN 65 mg/dL (8-23) H 04/06/25 05:10 Creatinine 1.6 mg/dL (0.7-1.2) H 04/06/25 05:10 GFR Calculation 44.2 mL/min (90-130) L 04/06/25 05:10 Glucose 330 mg/dL (65-115) H 04/06/25 05:10 Calculated Osmolality 304 mOsm/kg (285-295) H 04/06/25 05:10 Lactic Acid 3.1 mmol/L (0.5-2.2) H 04/06/25 05:10 Calcium 10.1 mg/dL (8.5-10.5) 04/06/25 05:10 Magnesium 2.0 mg/dL (1.7-2.3) 04/06/25 05:10 Total Bilirubin 2.2 mg/dL (0.15-1.2) H 04/06/25 05:10 AST 96 U/L (0-40) H 04/06/25 05:10 ALT 63 U/L (0-41) H 04/06/25 05:10 Alkaline Phosphatase 120 U/L (40-130) 04/06/25 05:10 Total Protein 6.8 g/dL (6.6-8.7) 04/06/25 05:10 Albumin 3.4 g/dL (3.5-5.2) L 04/06/25 05:10 Globulin 3.4 g/dL (1.3-4.6) 04/06/25 05:10 Procalcitonin 0.56 ng/mL (0-0.5) H 04/06/25 05:10 Amorphous Sediment Not Reportable 04/06/25 07:07 Influenza A (PCR) Negative (Negative) 04/06/25 06:40 Influenza Type B (PCR) Negative (Negative) 04/06/25 06:40 RSV (PCR) Negative (Negative) 04/06/25 06:40 SARS-CoV-2 (PCR) Negative (Negative) 04/06/25 06:40 XR interpretation done by ED provider, pending radiology final review EKG Data EKG 1: I personally reviewed and interpreted this EKG as follows: EKG interpretation date: 04/06/25 EKG interpretation time: 05:37 Interpretation: Junctional rhythm at 99 bpm, left axis deviation, no STEMI, QTc 481 ms Discharge Plan Discharge Patient Disposition: Admitted As Inpatient Admit Provider: Gayle Roland Clinical Impression: Sepsis, Pneumonia Condition: Stable Coding Level of Care Code ED Director [facility] Documented by User: Rosalba Marcum MD 04/06/25 08:05 HPI - Fever General: Chief Complaint: Fever Stated Complaint: Fever Time Seen by Provider: 04/06/25 05:10 Related Data Home Medications ?Medication ?Instructions ?Recorded ?Confirmed allopurinol 300 mg tablet 300 mg PO DAILY 05/08/19 04/06/25 cholecalciferol (vitamin D3) 25 1,000 unit PO DAILY 05/08/19 04/06/25 mcg (1,000 unit) capsule montelukast 10 mg tablet 10 mg PO BEDTIME 05/08/19 04/06/25 metoclopramide HCl 10 mg tablet 10 mg PO QID Indigestion 04/16/22 04/06/25 (Reglan) multivit-minerals no.60-ferrous 1 tab PO DAILY 10/16/22 04/06/25 fumarate-folic acid 27 mg-1 mg tablet (Niva-Plus) metoprolol tartrate 100 mg tablet 100 mg PO BID 12/28/23 04/06/25 magnesium hydroxide 400 mg/5 mL 30 ml PO .Q72H PRN Constipation 04/24/24 04/06/25 oral suspension (Milk of Magnesia) sodium phosphates 19 gram-7 118 ml [place] DAILY PRN Constipation 04/24/24 04/06/25 gram/118 mL enema (Fleet Enema) tamsulosin 0.4 mg capsule (Flomax) 0.4 mg PO BID 04/24/24 04/06/25 acetaminophen 500 mg capsule 500 mg PO Q6H PRN pain or fever 09/08/24 04/06/25 budesonide 160 mcg-glycopyr 9 2 inh inhalation BID 09/08/24 04/06/25 mcg-formot 4.8 mcg/actuation HFA inhaler (Breztri Aerosphere) albuterol sulfate 2.5 mg/3 mL 2.5 mg inhalation Q6H PRN Dyspnea 02/05/25 04/06/25 (0.083 %) solution for nebulization atorvastatin 20 mg tablet 20 mg PO DAILY 02/05/25 04/06/25 brinzolamide 1 % eye 1 drp ophthalmic (eye) BID 02/05/25 04/06/25 drops,suspension latanoprost 0.005 % eye drops 1 drp ophthalmic (eye) BEDTIME 02/05/25 04/06/25 triamcinolone acetonide 0.1 % 1 applic topical BID PRN skin 02/09/25 04/06/25 topical cream irritation on ears amiodarone 400 mg tablet 400 mg PO QAM 02/14/25 04/06/25 bisacodyl 5 mg tablet 10 mg PO DAILY PRN Constipation 02/14/25 04/06/25 miscellaneous medical supply 02/14/25 04/06/25 (Ocusoft Eyelid Cleansing Pads) semaglutide 1 mg/dose (4 mg/3 mL) 1 mg SUBCUT Q7D 02/14/25 04/06/25 subcutaneous pen injector (Ozempic) insulin aspart U-100 100 unit/mL 30 unit SUBCUT TID 03/13/25 04/06/25 (3 mL) subcutaneous pen insulin degludec 100 unit/mL (3 120 unit SUBCUT BEDTIME 03/13/25 04/06/25 mL) subcutaneous pen (Tresiba FlexTouch U-100 insulin) menthol 0.8 % topical powder (Gold See Rx Instructions .Route .COMPLEX 03/13/25 04/06/25 Castillo Medicated Body) ondansetron 8 mg disintegrating 8 mg PO Q6H PRN Nausea And Vomiting 03/13/25 04/06/25 tablet potassium chloride 20 mEq 20 meq PO DAILY 03/13/25 04/06/25 tablet,extended release(part/cryst) spironolactone 50 mg tablet 50 mg PO DAILY 03/13/25 04/06/25 omeprazole 40 mg capsule,delayed 40 mg PO BID 03/19/25 04/06/25 release bumetanide 1 mg tablet 3 mg PO BID 03/21/25 04/06/25 hydrocodone 5 mg-acetaminophen 325 1 tab PO .Q8H PRN pain 04/06/25 04/06/25 mg tablet lidocaine 4 % topical patch 1 patch topical BID 04/06/25 04/06/25 (Lidocaine Pain Relief) lubiprostone 8 mcg capsule 8 mcg PO BID 04/06/25 04/06/25 miscellaneous medical supply 04/06/25 04/06/25 (Ocusoft Eyelid Cleansing Pads) semaglutide 2 mg/dose (8 mg/3 mL) 2 mg SUBCUT Q7D 04/06/25 04/06/25 subcutaneous pen injector (Ozempic) white petrolatum-mineral oil 94 1 applic ophthalmic (eye) BEDTIME 04/06/25 04/06/25 %-3 % eye ointment (GenTeal Tears Severe (petrolatum-mineral oil)) Previous Rx's ?Medication ?Instructions ?Recorded fluticasone propionate 50 1 spray intranasal BID #15.8 mL 07/18/19 mcg/actuation nasal spray,suspension pregabalin 50 mg capsule 50 mg PO TID #90 caps 03/22/24 diltiazem HCl 180 mg 180 mg PO DAILY #30 caps 02/11/25 capsule,extended release 24 hr (Cardizem CD) apixaban 5 mg tablet (Eliquis) 5 mg PO BID #180 tabs 03/22/25 Allergies Allergy/AdvReac Type Severity Reaction Status Date / Time Penicillins Allergy ALGY-Hives Verified 03/20/25 10:49 Sulfa (Sulfonamide Allergy ALGY-Hives Verified 03/20/25 10:49 Antibiotics) PFS ED PFSH: Medical History Chronic indwelling Constantino catheter Sleep apnea, unspecified Constipation Dry eye syndrome of unspecified lacrimal gland Unspecified glaucoma Gastro-esophageal reflux disease without esophagitis Benign prostatic hyperplasia without lower urinary tract symptoms Gout, unspecified Hyperlipidemia, unspecified 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 Muscle weakness (generalized) COPD (chronic obstructive pulmonary disease) FCI (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 of anticoagulants Chronic atrial fibrillation, unspecified Open wound of left lower quadrant of abdominal wall without penetration into peritoneal cavity Intertriginous dermatitis associated with moisture Morbid obesity Atrial flutter Encounter for screening colonoscopy Repeat screening colonoscopy in 10 years unless otherwise specified Chronic low back pain Chronic right shoulder pain Diabetes mellitus Shoulder pain BILATERAL Encounter for long-term use of opiate analgesic Right knee pain Amputation above knee Left Diabetes type 2, controlled Essential hypertension Dysuria-frequency syndrome Seizure BPH (benign prostatic hyperplasia) Primary osteoarthritis of both knees r knee Obstructive sleep apnea syndrome Surgical History History of left above knee amputation History of shoulder surgery 2001 x 2 L shoulder Family History Other Heart disease Hypertension Social History Smoking and tobacco/nicotine status: never used tobacco/nicotine Quit status (tobacco/nicotine): not considering quitting Second hand smoke exposure: No Alcohol intake: never Substance/Drug Use: never Additional social history: Patient chews a can of tobacco daily. He wants full CODE STATUS as discussed with myself with his sister Tiara Garay present at bedside on 02/09/2025 Marital status: Single Marital status details: Never no kids Previous occupational history: Worked in [employer] for 3 years, [employer] Vital Signs: Vital signs: Vital Signs Temperature 101 F H 04/06/25 05:16 Pulse Rate 101 H 04/06/25 05:16 Respiratory Rate 20 H 04/06/25 05:16 Blood Pressure 109/52 04/06/25 05:16 Pulse Oximetry 95 04/06/25 05:16 Oxygen Delivery Me thod Room Air 04/06/25 05:16 MDM - Fever Medical Decision Making This is a chronically ill 59-year-old male with an extensive medical history including morbid obesity chronic indwelling Constantino catheter chronic granulomatous disease and pancytopenia, left above-knee amputation, chronic nonhealing ulcers, atrial fibrillation, hypertension and diabetes, presenting to the emergency department with fever in the setting of body aches and mild diarrhea, skin exam difficult due to body habitus but multiple staff revealed existing ulcers that do not appear acutely infected, patient was mildly hypotensive on arrival which was consistent with blood pressure from half-way, he does not appear acutely toxic, will obtain sepsis workup, empiric antibiotics and IV fluids, reassess for disposition Patient presents here with fever tachycardia consistent with sepsis. Patient does have bibasilar infiltrates on x-ray likely pneumonia. Patient was given empiric antibiotics here along with sepsis bolus his vitals here have been stable. I spoke to the hospitalist will admit to the ICU at this time critical care time 40 minutes The high probability of a clinically significant, sudden or life threatening deterioration of the patient's resp system(s) required my full and direct attention, intervention and personal management. The critical care time is as shown. This time is in addition to time spent performing any reported procedures but includes the following: [x] Data and vital sign review and interpretation [x] Patient assessment, examination and intervention [x] Documentation [x] Medication orders and management Lab Data I reviewed the patient's lab results. 04/06/25 05:10 04/06/25 05:10 Radiology Impressions Chest X-Ray 04/06/25 05:21 IMPRESSION: No significant change. Bibasilar infiltrates, left greater than right. Laboratory Results WBC 7.78 10^3/uL (3.29-11.43) 04/06/25 05:10 RBC 3.53 10^6/uL (3.85-5.65) L 04/06/25 05:10 Hgb 8.90 g/dL (11.27-16.99) L 04/06/25 05:10 Hct 27.6 % (37-53) L 04/06/25 05:10 MCV 78.2 fl (82-101) L 04/06/25 05:10 MCH 25.2 pg (27-33) L 04/06/25 05:10 MCHC 32.2 g/dL (30-55) 04/06/25 05:10 RDW 20.5 % (12.1-15.1) H 04/06/25 05:10 Plt Count 126 10^3/cmm (157-399) L 04/06/25 05:10 MPV Not Reportable 04/06/25 05:10 Neut % (Auto) 82.3 % 04/06/25 05:10 Lymph % (Auto) 4.8 % 04/06/25 05:10 [place] % (Auto) 10.7 % 04/06/25 05:10 Eos % (Auto) 0.6 % 04/06/25 05:10 Baso % (Auto) 0.3 % 04/06/25 05:10 Neut # (Auto) 6.41 10^3/uL (1.8-7.7) 04/06/25 05:10 Lymph # (Auto) 0.4 10^3/uL (0.8-4.8) L 04/06/25 05:10 [place] # (Auto) 0.8 10^3/uL (0.2-0.9) 04/06/25 05:10 Eos # (Auto) 0.1 10^3/uL (0.0-0.8) 04/06/25 05:10 Baso # (Auto) 0.0 10^3/uL (0.0-0.1) 04/06/25 05:10 Nucleated RBC % (auto) 0 % 04/06/25 05:10 Nucleated RBCs # 0.0 /100WBC 04/06/25 05:10 Sodium 131 mmol/L (136-145) L 04/06/25 05:10 Potassium 4.2 mmol/L (3.5-5.1) 04/06/25 05:10 Chloride 94 mmol/L (98-107) L 04/06/25 05:10 Carbon Dioxide 21 mmol/L (22-29) L 04/06/25 05:10 Anion Gap 20.2 (5-19) H 04/06/25 05:10 BUN 65 mg/dL (8-23) H 04/06/25 05:10 Creatinine 1.6 mg/dL (0.7-1.2) H 04/06/25 05:10 GFR Calculation 44.2 mL/min (90-130) L 04/06/25 05:10 Glucose 330 mg/dL (65-115) H 04/06/25 05:10 Calculated Osmolality 304 mOsm/kg (285-295) H 04/06/25 05:10 Lactic Acid 3.1 mmol/L (0.5-2.2) H 04/06/25 05:10 Calcium 10.1 mg/dL (8.5-10.5) 04/06/25 05:10 Magnesium 2.0 mg/dL (1.7-2.3) 04/06/25 05:10 Total Bilirubin 2.2 mg/dL (0.15-1.2) H 04/06/25 05:10 AST 96 U/L (0-40) H 04/06/25 05:10 ALT 63 U/L (0-41) H 04/06/25 05:10 Alkaline Phosphatase 120 U/L (40-130) 04/06/25 05:10 Total Protein 6.8 g/dL (6.6-8.7) 04/06/25 05:10 Albumin 3.4 g/dL (3.5-5.2) L 04/06/25 05:10 Globulin 3.4 g/dL (1.3-4.6) 04/06/25 05:10 Procalcitonin 0.56 ng/mL (0-0.5) H 04/06/25 05:10 Amorphous Sediment Not Reportable 04/06/25 07:07 Influenza A (PCR) Negative (Negative) 04/06/25 06:40 Influenza Type B (PCR) Negative (Negative) 04/06/25 06:40 RSV (PCR) Negative (Negative) 04/06/25 06:40 SARS-CoV-2 (PCR) Negative (Negative) 04/06/25 06:40 Critical Care Time Critical Care Time: Critical Care Time: Yes Total Critical Care Time: 40 Attestation: The high probability of a clinically significant, sudden or life threatening deterioration of the patient's resp system(s) required my full and direct attention, intervention and personal management. The critical care time is as shown. This time is in addition to time spent performing any reported procedures but includes the following: [x] Data and vital sign review and interpretation [x] Patient assessment, examination and intervention [x] Documentation [x] Medication orders and management Discharge Plan Discharge Patient Disposition: Admitted As Inpatient Admit Provider: Gayle Roland Clinical Impression: Sepsis, Pneumonia Condition: Stable Coding Level of Care Code ED Director [facility]
--- NOTE | 2025-04-06 05:34 | ECG_ITS ---
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 Measurements Intervals [place] Rate: 99 P: 269 MT: 62 QRS: -71 QRSD: 157 T: 11 QT: 425 QTc: 545 Interpretive Statements Possible atrial flutter with a fixed AV block LEFT AXIS DEVIATION [QRS AXIS < -30] INTRAVENTRICULAR CONDUCTION DELAY [130+ ms QRS DURATION] ANTEROSEPTAL MYOCARDIAL INFARCTION , OF INDETERMINATE AGE [40+ ms Q WAVE IN V1-V4] Compared to ECG 03/19/2025 09:20:01 Junctional rhythm now present Left-axis deviation now present Intraventricular conduction delay now present Atrial fibrillation no longer present. Right-axis deviation no longer present Right bundle-branch block no longer present. Myocardial infarct finding still present Electronically Signed On 04-06-2025 18:50:50 CARPET SEWING 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 by Norberto Sylvester M.D. [email or web address]
[2025-04-06] MEDS: acetaminophen 1,000 MG/100 ML PIGGYBACK 400 MG IV (05:46)
[2025-04-06 05:50] LABS: Alanine Aminotransferase 63 U/L (0-41); Albumin Level 3.4 g/dL (3.5-5.2); Alkaline Phosphatase 120 U/L (40-130); Anion Gap 20.2 (5-19); Aspartate Amino Transferase 96 U/L (0-40); Blood Urea Nitrogen 65 mg/dL (8-23); Calcium 10.1 mg/dL (8.5-10.5); Carbon Dioxide 21 mmol/L (22-29); Chloride 94 mmol/L (98-107); Globulin 3.4 g/dL (1.3-4.6); Glucose 330 mg/dL (65-115); Magnesium 2.0 mg/dL (1.7-2.3); Osmolality Calculated 304 mOsm/kg (285-295); Potassium 4.2 mmol/L (3.5-5.1); Sodium 131 mmol/L (136-145); Total Protein 6.8 g/dL (6.6-8.7)
[2025-04-06 05:51] LABS: Lactic Sepsis W/Reflex 3.1 mmol/L (0.5-2.2)
[2025-04-06 05:56] LABS: Procalcitonin 0.56 ng/mL (0-0.5)
--- NOTE | 2025-04-06 06:00 | PC.NURSE ---
Report called to Breanne CAGE in [facility]. All questions and concerns were addressed at time.
[2025-04-06] MEDS: cefepime 2,000 mg SDV 2000 MG IVP (06:15)
--- NOTE | 2025-04-06 06:47 | PC.NURSE ---
Bedside report given to
[2025-04-06 07:15] LABS: Reflex Lactate Order REFLEX LACTIC ORDERD
[2025-04-06 07:23] LABS: Respiratory Syncytial Virus Ce NEGATIVE (Negative); SARS-CoV-2 PCR NEGATIVE (Negative)
[2025-04-06 07:24] LABS: Glucose Urine UA Negative (Normal); Nitrate Urine Negative (Negative); Specific Gravity, Urine 1.014 (1.005-1.030)
--- NOTE | 2025-04-06 07:24 | CT_ITS ---
WS: [id number] CT CHEST, ABDOMEN, AND PELVIS TECHNIQUE: Contrast-enhanced CT of the chest, abdomen, and pelvis with coronal and sagittal reformatted images. CLINICAL INFORMATION: sepsis/sob COMPARISON: CT 03/13/2025 and 02/09/2025 DLP: 1994.[address] scans at [facility] use at least one of these dose optimization techniques: automated exposure control; mA and/or kV adjustment per patient size (includes targeted exams where dose is matched to clinical indication); or iterative reconstruction. CT CHEST: LEFT pleural effusion has improved from previous. Trace LEFT pleural fluid. Subsegmental atelectasis LEFT lower lobe. RIGHT lung is well aerated. No focal pneumonia. Normal caliber thoracic aorta. Coronary calcification. Chronic rib fractures with callus formation. Thoracic curve. Cardiomegaly. CT ABDOMEN AND PELVIS: Hepatomegaly. Splenomegaly. Cholelithiasis. Tiny esophageal hiatal hernia. Images of the upper abdomen degraded by beam hardening artifact. Small RIGHT adrenal adenoma. No hydronephrosis. Stable cystic lesions LEFT kidney. Pancreas appears normal. Aortic calcification. No aneurysm. Thoracolumbar scoliosis. Constantino catheter. Normal appendix. No evidence of small or large bowel obstruction. No free fluid in the abdomen or pelvis. CT/CT chest abdpel w/*[id number] IMPRESSION: Overall exam is limited by patient's difficulty positioning and con dition with beam hardening artifact 1. Residual trace LEFT pleural fluid with subsegmental atelectasis LEFT lower lobe. No new pulmonary infiltrates. 2. No hydronephrosis in either kidney. 3. Splenomegaly with mild hepatomegaly. 4. Cholelithiasis. Gallbladder is partially contracted. 5. Constantino catheter. 6. Sigmoid diverticulosis. 7. No other significant changes since the prior studies.
[2025-04-06 07:26] LABS: Add Urine Microscopic? YES
--- NOTE | 2025-04-06 07:48 | PC.PHAR ---
Pt is from [facility]
[2025-04-06 08:04] LABS: UA Slide Review UA Slide Review Perf
[2025-04-06 08:25] LABS: Lactic Acid level (Lactate) 2.0 mmol/L (0.5-2.2)
--- NOTE | 2025-04-06 13:04 | PM.HP ---
Providers/Chief Complaint Primary Care Provider: Chris Parker DO Chief Complaint: Fever History of Present Illness 59-year-old male with a past medical history significant for pancytopenia, left above-knee amputation, chronic indwelling Constantino catheter, hypertension, diabetes, atrial fibrillation, morbid obesity, pancytopenia, chronic granulomatous disease, chronic ulcerations to the left hip and suprapubic region, Presented to the hospital with complaints of fever body aches and diarrhea that had been going on for 2 days. The patient is currently confused, history has been obtained from ER records. Patient is able to tell me his name but thinks that he is in the senior living and he does not know why he is in the hospital. He does not know the year. He was hypertensive when he came in however blood pressure got better with IV fluids, now getting hypotensive again. Starting Levophed on him. We do not know his baseline mental status. Will be calling the senior living to obtain his baseline mental status as well since he is confused ROS, unable to obtain given his confusion Per ER records, he had a temp of 28.6, was bundled in multiple blankets on arrival. A fever of 101. Was mildly hypotensive and did not have any shortness of breath or chest pain at that time Medications/Allergies Home Medications ?Medication ?Instructions ?Recorded ?Confirmed ?Last Taken ?Type allopurinol 300 mg tablet 300 mg PO DAILY 05/08/19 04/06/25 04/05/25 History cholecalciferol (vitamin D3) 25 1,000 unit PO DAILY 05/08/19 04/06/25 04/05/25 History mcg (1,000 unit) capsule montelukast 10 mg tablet 10 mg PO BEDTIME 05/08/19 04/06/25 04/05/25 History fluticasone propionate 50 1 spray intranasal BID #15.8 mL 07/18/19 04/06/25 04/05/25 Rx mcg/actuation nasal spray,suspension metoclopramide HCl 10 mg tablet 10 mg PO QID Indigestion 04/16/22 04/06/25 04/05/25 History (Reglan) multivit-minerals no.60-ferrous 1 tab PO DAILY 10/16/22 04/06/25 04/05/25 History fumarate-folic acid 27 mg-1 mg tablet (Niva-Plus) metoprolol tartrate 100 mg tablet 100 mg PO BID 12/28/23 04/06/25 04/05/25 History pregabalin 50 mg capsule 50 mg PO TID #90 caps 03/22/24 04/06/25 04/05/25 Rx magnesium hydroxide 400 mg/5 mL 30 ml PO .Q72H PRN Constipation 04/24/24 04/06/25 04/02/25 History oral suspension (Milk of Magnesia) sodium phosphates 19 gram-7 118 ml KS DAILY PRN Constipation 04/24/24 04/06/25 03/24/25 History gram/118 mL enema (Fleet Enema) tamsulosin 0.4 mg capsule (Flomax) 0.4 mg PO BID 04/24/24 04/06/25 04/05/25 History acetaminophen 500 mg capsule 500 mg PO Q6H PRN pain or fever 09/08/24 04/06/25 04/05/25 History budesonide 160 mcg-glycopyr 9 2 inh inhalation BID 09/08/24 04/06/25 04/05/25 History mcg-formot 4.8 mcg/actuation HFA inhaler (PresenceLearningzSpumeNewsphere) albuterol sulfate 2.5 mg/3 mL 2.5 mg inhalation Q6H PRN Dyspnea 02/05/25 04/06/25 02/13/25 History (0.083 %) solution for nebulization atorvastatin 20 mg tablet 20 mg PO DAILY 02/05/25 04/06/25 04/05/25 History brinzolamide 1 % eye 1 drp ophthalmic (eye) BID 02/05/25 04/06/25 04/05/25 History drops,suspension latanoprost 0.005 % eye drops 1 drp ophthalmic (eye) BEDTIME 02/05/25 04/06/25 04/05/25 History triamcinolone acetonide 0.1 % 1 applic topical BID PRN skin 02/09/25 04/06/25 Unknown History topical cream irritation on ears diltiazem HCl 180 mg 180 mg PO DAILY #30 caps 02/11/25 04/06/25 04/05/25 Rx capsule,extended release 24 hr (Cardizem CD) amiodarone 400 mg tablet 400 mg PO QAM 02/14/25 04/06/25 04/05/25 History bisacodyl 5 mg tablet 10 mg PO DAILY PRN Constipation 02/14/25 04/06/25 04/02/25 History miscellaneous medical supply 02/14/25 04/06/25 Unknown History (Ocusoft Eyelid Cleansing Pads) semaglutide 1 mg/dose (4 mg/3 mL) 1 mg SUBCUT Q7D 02/14/25 04/06/25 04/02/25 History subcutaneous pen injector (Ozempic) insulin aspart U-100 100 unit/mL 30 unit SUBCUT TID 03/13/25 04/06/25 04/05/25 History (3 mL) subcutaneous pen insulin degludec 100 unit/mL (3 120 unit SUBCUT BEDTIME 03/13/25 04/06/25 04/05/25 History mL) subcutaneous pen (Tresiba FlexTouch U-100 insulin) menthol 0.8 % topical powder (Gold See Rx Instructions .Route .COMPLEX 03/13/25 04/06/25 04/05/25 History Castillo Medicated Body) ondansetron 8 mg disintegrating 8 mg PO Q6H PRN Nausea And Vomiting 03/13/25 04/06/25 04/02/25 History tablet potassium chloride 20 mEq 20 meq PO DAILY 03/13/25 04/06/25 04/05/25 History tablet,extended release(part/cryst) spironolactone 50 mg tablet 50 mg PO DAILY 03/13/25 04/06/25 04/05/25 History omeprazole 40 mg capsule,delayed 40 mg PO BID 03/19/25 04/06/25 04/05/25 History release bumetanide 1 mg tablet 3 mg PO BID 03/21/25 04/06/25 04/05/25 History apixaban 5 mg tablet (Eliquis) 5 mg PO BID #180 tabs 03/22/25 04/06/25 Unknown Rx hydrocodone 5 mg-acetaminophen 325 1 tab PO .Q8H PRN pain 04/06/25 04/06/25 04/06/25 History mg tablet lidocaine 4 % topical patch 1 patch topical BID 04/06/25 04/06/25 04/05/25 History (Lidocaine Pain Relief) lubiprostone 8 mcg capsule 8 mcg PO BID 04/06/25 04/06/25 04/05/25 History miscellaneous medical supply 04/06/25 04/06/25 Unknown History (Ocusoft Eyelid Cleansing Pads) semaglutide 2 mg/dose (8 mg/3 mL) 2 mg SUBCUT Q7D 04/06/25 04/06/25 Unknown History subcutaneous pen injector (Ozempic) white petrolatum-mineral oil 94 1 applic ophthalmic (eye) BEDTIME 04/06/25 04/06/25 04/05/25 History %-3 % eye ointment (GenTeal Tears Severe (petrolatum-mineral oil)) Allergies Allergy/AdvReac Type Severity Reaction Status Date / Time Penicillins Allergy ALGY-Hives Verified 03/20/25 10:49 Sulfa (Sulfonamide Allergy ALGY-Hives Verified 03/20/25 10:49 Antibiotics) PFSH Acute PFSH: Medical History (Updated 04/06/25 @ 15:39 by Hamida Rowley MD) 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 UTI (urinary tract infection) Chronic indwelling Constantino catheter Sleep apnea, unspecified Constipation Dry eye syndrome of unspecified lacrimal gland Unspecified glaucoma Gastro-esophageal reflux disease without esophagitis Benign prostatic hyperplasia without lower urinary tract symptoms Gout, unspecified Hyperlipidemia, unspecified 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 heart failure 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 Muscle weakness (generalized) COPD (chronic obstructive pulmonary disease) penitentiary (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 of anticoagulants Chronic atrial fibrillation, unspecified Open wound of left lower quadrant of abdominal wall without penetration into peritoneal cavity Intertriginous dermatitis associated with moisture Morbid obesity Atrial flutter Encounter for screening colonoscopy Repeat screening colonoscopy in 10 years unless otherwise specified Chronic low back pain Chronic right shoulder pain Diabetes mellitus Shoulder pain BILATERAL Encounter for long-term use of opiate analgesic Right knee pain Amputation above knee Left Diabetes type 2, controlled Essential hypertension Dysuria-frequency syndrome Seizure BPH (benign prostatic hyperplasia) Primary osteoarthritis of both knees r knee Obstructive sleep apnea syndrome Surgical History History of left above knee amputation History of shoulder surgery 2001 x 2 L shoulder Family History Other Heart disease Hypertension Social History Smoking and tobacco/nicotine status: never used tobacco/nicotine Quit status (tobacco/nicotine): not considering quitting Second hand smoke exposure: No Alcohol intake: never Substance/Drug Use: never Additional social history: Patient chews a can of tobacco daily. He wants full CODE STATUS as discussed with myself with his sister Tiara Garay present at bedside on 02/09/2025 Marital status: Single Marital status details: Never no kids Previous occupational history: Worked in [employer] for 3 years, [employer] Vitals/I&O/Wt Last Vital Signs Temp 98.8 F 04/06/25 10:40 Pulse 93 04/06/25 10:40 Resp 20 H 04/06/25 05:16 BP 108/66 04/06/25 10:40 Pulse Ox 95 04/06/25 10:40 O2 Del Method Nasal Cannula 04/06/25 11:20 O2 Flow Rate 2 04/06/25 07:30 04/05/25 04/06/25 04/06/25 22:59 06:59 14:59 Intake Total 100 / 100 2578 / 2578 Balance 100 / 100 2578 / 2578 Weight last 48 hrs Weight 139.706 kg Physical Exam Narrative: General, AO x 1. Appears distressed. Morbidly obese. Appears older than stated age HEENT normocephalic atraumatic Chest decreased air entry bilaterally CV s S1-S2 are normal, regular and rhythm Abdomen soft nontender distended bowel sounds positive Extremities, right lower extremity Ensocare good, warm to touch, dry. Pulses present, left-sided amputation above the knee Neuro as above Data 04/06/25 05:10 04/06/25 05:10 A&P Assessment and plan 1. Septic shock: Plan: 62-year-old male with past medical history of chronic indwelling Constantino catheter hypertension diabetes A-fib morbid obesity pancytopenia chronic renal disease, chronic ulcerations of the left hip and suprapubic region, presents to the hospital with complaints of fever diarrhea generalized bodyaches... Found to have severe sepsis. Possible source UTI versus wound infection versus C. difficile? CT chest abdomen pelvis obtained in the ER and shows residual trace left pleural fluid with subsegmental IS left lower lobe. No new pulmonary infiltrate. No hydronephrosis in either kidney. Splenomegaly with mild hepatomegaly. Cholelithiasis, gallbladder partially contracted. Constantino catheter. Sigmoid diverticulosis. No other significant changes. -- Obtain stat blood cultures -- Patient has lactic acidosis, start IV fluids, repeat lactic acid levels. -- Start broad-spectrum antibiotics given possibility of infections as mentioned above. Will start vancomycin and cefepime also given that patient is from senior living --Send wound cultures -- Has normal white count. Does not appear to have pancytopenia, has anemia and thrombocytopenia which appears chronic, likely worsened secondary to severe sepsis Hyponatremia 131, labs reviewed sodium 138 on 03/20/2025. Continue IV fluids, trend sodium. Anion gap metabolic acidosis, possibly secondary to lactic acidosis versus secondary to ATN/JESSICA IV fluids as mentioned above. Trend. Will repeat BMP right now actually JESSICA on CKD versus CKD stage III. IV fluids as mentioned above. No hydronephrosis noted on CT scan. History of diabetes mellitus, Lantus started. Started starting cefazolin, monitor blood sugars. Will hold home doses of insulin since they appear to be huge Lactic acidosis, plan as above Transaminitis, likely secondary to severe sepsis. Trend. Acute metabolic encephalopathy, possibly secondary to severe sepsis as mentioned above. However obtain CT head and an ABG DVT prophylaxis heparin subcu Full code PDMP PDMP Reviewed: Not Reviewed Attestations Medical Necessity Statement*: New admission with severe sepsis possibly septic shock Coding Level of Care Code Acute Code for Chg Fwd Diagnoses Septic shock A41.9; R65.21
[2025-04-06] MEDS: insulin glargine 100 units/1 mL 10 UNIT SUBCUT (13:08)
--- NOTE | 2025-04-06 13:28 | PHA.VACGOAL ---
Vancomycin Goal - Goal Vancomycin Goal:: 15-20 mg/L Vancomycin Indication:: Other - Therapy Current therapy:: Other Antibiotic (CEFTRIAXONE) Day of therpy:: Day []of [] . Actual body weight (kg): 293 lb 3.437 oz - Data Labs: WBC 7.78 10^3/uL (3.29-11.43) 04/06/25 05:10 RBC 3.53 10^6/uL (3.85-5.65) L 04/06/25 05:10 Hgb 8.90 g/dL (11.27-16.99) L 04/06/25 05:10 Hct 27.6 % (37-53) L 04/06/25 05:10 MCV 78.2 fl (82-101) L 04/06/25 05:10 MCH 25.2 pg (27-33) L 04/06/25 05:10 MCHC 32.2 g/dL (30-55) 04/06/25 05:10 RDW 20.5 % (12.1-15.1) H 04/06/25 05:10 Sodium 131 mmol/L (136-145) L 04/06/25 05:10 Potassium 4.2 mmol/L (3.5-5.1) 04/06/25 05:10 Chloride 94 mmol/L (98-107) L 04/06/25 05:10 Carbon Dioxide 21 mmol/L (22-29) L 04/06/25 05:10 Anion Gap 20.2 (5-19) H 04/06/25 05:10 BUN 65 mg/dL (8-23) H 04/06/25 05:10 Creatinine 1.6 mg/dL (0.7-1.2) H 04/06/25 05:10 GFR Calculation 44.2 mL/min (90-130) L 04/06/25 05:10 Last dialysis session:: N/A Treatment plan:: new consult Regimen:: LOADING DOSE OF 2000 MG X 1 STARTING MAINTENANCE DOSE OF 1750 MG Q12H PER DOSING PROTOCOL Follow up:: WILL CONTINUE TO MONITOR AND FOLLOW UP DAILY
[2025-04-06] MEDS: cefTRIAXone 1,000 mg SDV 1000 MG IVP (13:38)
[2025-04-06] MEDS: heparin 5,000 unit/mL INJ 1 mL 5000 UNIT SUBCUT ×2 (13:40→20:55)
[2025-04-06 13:52] LABS: Lactate (Lactic Acid level) 3.2 mmol/L (0.5-2.2)
--- NOTE | 2025-04-06 15:28 | CTR_ITS ---
PROCEDURE INFORMATION: Exam: CT Head Without Contrast Exam date and time: 04/06/2025 3:56 PM Age: 59 years old Clinical indication: Altered mental status/memory loss; Additional info: AMS TECHNIQUE: Imaging protocol: Computed tomography of the head without contrast. Radiation optimization: All CT scans at this facility use at least one of these dose optimization techniques: automated exposure control; mA and/or kV adjustment per patient size (includes targeted exams where dose is matched to clinical indication); or iterative reconstruction. COMPARISON: CT neck w con* [id number] 08/25/2022 1:45 PM RADIATION DOSE METRICS: Total DLP (mGy-cm): 1149.38 FINDINGS: Brain: Normal. No hemorrhage. Unremarkable white matter. No mass effect. Cerebral ventricles: No ventriculomegaly. Paranasal sinuses: Mild mucosal thickening in the bilateral maxillary sinuses. Mastoid air cells: Visualized mastoid air cells are well aerated. Bones: Unremarkable. No acute fracture. Soft tissues: Unremarkable. CT/CT head wo con* [id number] IMPRESSION: No acute intracranial abnormality.
[2025-04-06] MEDS: norepinephrine 4 MG/250 ML BAG 7.5 MG IV (15:36)
[2025-04-06 15:58] LABS: ABG PCO2 29.4 mmHg (35-45); ABG PH Result 7.46 (7.35-7.45); Alveolar-Arterial Oxygen Gradi 15.9 mmHg (5-10); Arterial Blood Gas Hematocrit 28.7 % (42-52); Blood Gas LPM 3.0 %; Blood Gas Operator Identificat GD; Blood Gas Sample Site Brachial, left; Blood Gas Sample Type Arterial; Carboxyhemoglobin 1.3 %THgb (0.4-20.1); Glucose Level-ABG 207.0 mg/dL (70-115); HCO3 ABG 21.1 mmol/L (22-26); Ionized Calcium Level - ABG 1.2 mmol/L (1.1-1.4); Methemoglobin 1.2 % (0.4-1.5); Oxygen Saturation ABG 94.4; PO2 ABG 67.4 mmHg (80.0-100.0); PO2 FiO2 Ratio Arterial Blood 210; Potassium Level - ABG 3.6 mmol/L (3.5-5.0); Sodium Level - ABG 137.0 mmol/L (131-143)
[2025-04-06 16:13] LABS: Anion Gap 18.7 (5-19); Blood Urea Nitrogen 65 mg/dL (8-23); Calcium 9.2 mg/dL (8.5-10.5); Carbon Dioxide 21 mmol/L (22-29); Chloride 99 mmol/L (98-107); Glucose 218 mg/dL (65-115); Osmolality Calculated 305 mOsm/kg (285-295); Potassium 3.7 mmol/L (3.5-5.1); Sodium 135 mmol/L (136-145)
[2025-04-06] MEDS: cefepime 1,000 mg SDV 1000 MG IVP ×2 (16:13→23:04)
--- NOTE | 2025-04-06 16:26 | PC.NURSE ---
Transfer: received patient from ER staff at 1020. Mental status is variable. Is lethargic, but rousable. Will initially answer orientation questions correctly, but will later get them wrong when asking for name/ when passing meds. Sometimes talking about nonsensical events. HR:93 BP: 108/66 Temp: 98.8 SPO2: 95% on 2 L NC RR: 24 Belongings: Cellphone, home cpap, and padded boot.
--- NOTE | 2025-04-06 18:35 | PC.NURSE ---
SHift SUmmary: Uneventful shift. Since arrival from ER he has been mostly lethargic, confused, may occasionally answer questions correctly. CT was unremarkable 2/4 blood cultures positive for growth, culture and sensitivity still pending. Was briefly on levophed, turned off by end of shift. total urine out: 2200mL
--- NOTE | 2025-04-06 19:08 | PC.NURSE ---
Baseline mentation: Nurse called [facility]. According to staff, patient's baseline is alert. Oriented to person, place, time, and situation.
[2025-04-07] VITALS (64 sets, daily range): BP systolic 85–152; BP diastolic 40–99; PULSE 70–119; RESP 10–27; TEMP 36.4–37.1; O2SAT 95–100
[2025-04-07] MEDS: vancomycin 1,750 MG/350 ML PIGGYBACK 175 MG IV ×2 (01:30→13:51)
[2025-04-07 04:44] LABS: Hematocrit 26.7 % (37-53); Hemoglobin 8.30 g/dL (11.27-16.99); Mean Corpuscular HGB Conc 31.1 g/dL (30-55); Mean Corpuscular Hemoglobin 24.9 pg (27-33); Mean Corpuscular Volume 80.2 fl (82-101); Nucleated Red Blood Cells % 0 %; Platelet Count 124 10^3/cmm (157-399); Red Blood Count 3.33 10^6/uL (3.85-5.65); White Blood Count 8.40 10^3/uL (3.29-11.43)
[2025-04-07 05:11] LABS: Anion Gap 17.3 (5-19); Blood Urea Nitrogen 66 mg/dL (8-23); Calcium 8.9 mg/dL (8.5-10.5); Carbon Dioxide 20 mmol/L (22-29); Chloride 105 mmol/L (98-107); Glucose 199 mg/dL (65-115); Osmolality Calculated 313 mOsm/kg (285-295); Potassium 3.3 mmol/L (3.5-5.1); Sodium 139 mmol/L (136-145)
[2025-04-07 05:12] LABS: Alanine Aminotransferase 50 U/L (0-41); Albumin Level 3.0 g/dL (3.5-5.2); Alkaline Phosphatase 92 U/L (40-130); Aspartate Amino Transferase 61 U/L (0-40); Globulin 3.2 g/dL (1.3-4.6); Total Protein 6.2 g/dL (6.6-8.7)
[2025-04-07] MEDS: heparin 5,000 unit/mL INJ 1 mL 5000 UNIT SUBCUT ×3 (05:15→20:27)
[2025-04-07] MEDS: insulin glargine 100 units/1 mL 10 UNIT SUBCUT (05:15)
[2025-04-07] MEDS: cefepime 1,000 mg SDV 1000 MG IVP ×2 (08:22→14:59)
[2025-04-07] MEDS: water for injection-sterile 20 ML 10000 ML (08:23)
[2025-04-07] MEDS: HYDROcodone-acetaminophen 5-325 mg Tablet 1 TAB PO (15:00)
[2025-04-07] MEDS: water for injection-sterile 10 ML 10000 ML (15:08)
--- NOTE | 2025-04-07 15:11 | PM.PN ---
Subjective Subjective: Patient seen in bed. Patient is nonambulatory at senior living where he resides. Complains of positional discomfort and some pain in his stump which is chronic. Family present: No Amb status: Bedridden Diet: Cardiac; needs to be cut into bite-size pieces. Lines/Drains: Tele: Peripheral Medications: Reviewed: Yes Vitals/I&O/Wt Last Vital Signs Temp 97.8 F 04/07/25 13:37 Pulse 114 H 04/07/25 14:00 Resp 19 H 04/07/25 14:00 BP 119/67 04/07/25 14:00 Pulse Ox 100 04/07/25 14:00 O2 Del Method Nasal Cannula 04/06/25 16:40 O2 Flow Rate 2 04/06/25 16:40 04/07/25 04/07/25 04/07/25 06:59 14:59 22:59 Intake Total 1332.417 / 4332.792 928.333 / 928.333 Output Total 1200 / 3400 2400 / 2400 Balance 132.417 / 932.792 -1471.667 / -1471.667 Weight last 48 hrs Weight 133.719 kg Weight 133 kg Weight 139.706 kg Physical Exam Narrative: Alert and oriented in mild discomfort due to body habitus and bed positioning. He appears older than his stated age he is morbidly obese with a left AKA Heart is regular normal S1-S2 without murmurs clicks gallops or rubs Lungs clear to auscultation without wheezes rales or rhonchi Abdomen soft morbidly obese with large pannus nontender normal active bowel sounds Right lower extremity thin with atrophy Unable to assess left stump in current position, it is underneath his abdominal pannus Urinary Catheter Management: Constantino: Cath Placed During This Visit: no Reason for Continuing Indwelling Catheter: Chronic Indwelling Urinary Catheter on Admission Data 04/07/25 04:13 04/07/25 04:13 Micro: Microbiology 04/06/25 07:07 Urine Culture - Preliminary Urine,Clean Catch Gram Negative Rods 04/06/25 06:15 Blood Culture - Preliminary Blood Escherichia coli 04/06/25 06:06 Blood Culture - Preliminary Blood Escherichia coli E. coli and urine and blood?ESBL A&P Assessment and plan 1. Septic shock: Plan: 62-year-old male with past medical history of chronic indwelling Constantino catheter hypertension diabetes A-fib morbid obesity pancytopenia chronic renal disease, chronic ulcerations of the left hip and suprapubic region, presents to the hospital with complaints of fever diarrhea generalized bodyaches... Found to have severe sepsis. Possible source UTI versus wound infection versus C. difficile? CT chest abdomen pelvis obtained in the ER and shows residual trace left pleural fluid with subsegmental IS left lower lobe. No new pulmonary infiltrate. No hydronephrosis in either kidney. Splenomegaly with mild hepatomegaly. Cholelithiasis, gallbladder partially contracted. Constantino catheter. Sigmoid diverticulosis. No other significant changes. Urine and blood cultures positive for E. coli?ESBL. Currently on Maxipime and vancomycin Patient was requiring Levophed for septic shock. Levophed has been weaned off today. Hyponatremia on admission. This has corrected with IV fluids Anion gap metabolic acidosis, possibly secondary to lactic acidosis versus secondary to ATN/JESSICA Gap is now closed. Successful treatment with fluids JESSICA on CKD versus CKD stage III. No significant change in BUN and creatinine in the last 2 days History of diabetes mellitus, Lantus started on admission. Home doses of insulin are on hold at this time. Currently he is receiving Lantus 10 units and insulin sliding scale Transaminitis, likely secondary to severe sepsis. Acute metabolic encephalopathy, possibly secondary to severe sepsis as mentioned above. CT head negative for acute intracranial abnormality. An ABG was 7.4 10/30/66 on 3 L nasal cannula last night DVT prophylaxis heparin subcu Full code PDMP PDMP Reviewed: Not Reviewed Attestations Medical Necessity Statement*: New admission with severe septic shock Coding Level of Care Code Acute Code for Chg Fwd Diagnoses Septic shock A41.9; R65.21
--- NOTE | 2025-04-07 16:53 | PC.NURSE ---
reposition freq , weaned off levophed gtt wounds right heel drs changed optifoam no sore underneath just pressure area, under panis small open areas noted with redness underneath telfa to open areas and intra dry placed, on left hip noted 2 small open areas, cleansed and optifoam to area, tends to rotate onto left side freq multiple pillows placed
[2025-04-08] VITALS (26 sets, daily range): BP systolic 94–157; BP diastolic 61–85; PULSE 102–125; RESP 16–28; TEMP 36.9–37.5; O2SAT 96–100
[2025-04-08] MEDS: cefepime 1,000 mg SDV 1000 MG IVP ×2 (00:11→07:42)
[2025-04-08] MEDS: vancomycin 1,750 MG/350 ML PIGGYBACK 175 MG IV (01:11)
[2025-04-08] MEDS: heparin 5,000 unit/mL INJ 1 mL 5000 UNIT SUBCUT (04:20)
[2025-04-08] MEDS: insulin glargine 100 units/1 mL 10 UNIT SUBCUT (04:20)
[2025-04-08 04:21] LABS: Hematocrit 28.0 % (37-53); Hemoglobin 8.30 g/dL (11.27-16.99); Mean Corpuscular HGB Conc 29.6 g/dL (30-55); Mean Corpuscular Hemoglobin 24.6 pg (27-33); Mean Corpuscular Volume 83.1 fl (82-101); Nucleated Red Blood Cells % 0 %; Platelet Count 108 10^3/cmm (157-399); Red Blood Count 3.37 10^6/uL (3.85-5.65); White Blood Count 5.24 10^3/uL (3.29-11.43)
[2025-04-08 04:41] LABS: Anion Gap 16.6 (5-19); Blood Urea Nitrogen 44 mg/dL (8-23); Calcium 8.7 mg/dL (8.5-10.5); Carbon Dioxide 18 mmol/L (22-29); Chloride 110 mmol/L (98-107); Glucose 156 mg/dL (65-115); Osmolality Calculated 306 mOsm/kg (285-295); Potassium 3.6 mmol/L (3.5-5.1); Sodium 141 mmol/L (136-145)
[2025-04-08 04:54] LABS: Slide Review Slide Review Perform
[2025-04-08] MEDS: artificial tears Op Soln 15 mL Btl 1 DROP EYE-BOTH ×2 (07:44→20:54)
[2025-04-08] MEDS: water for injection-sterile 10 ML 10000 ML (07:46)
[2025-04-08] MEDS: HYDROcodone-acetaminophen 5-325 mg Tablet 1 TAB PO (08:46)
--- NOTE | 2025-04-08 09:15 | PC.NURSE ---
reposition frequent in bed tends to lean to left side . up in bed am care done brk served pt feed self more alert and responsive this am
--- NOTE | 2025-04-08 10:09 | P.PN_ITS ---
Subjective 2 Subjective: Patient seen in bed. Patient is nonambulatory at senior living where he resides. Complains of positional discomfort and some pain in his stump which is chronic. Restarted pain regimen from [place] Family present: No Amb status: Bedridden Diet: Cardiac; needs to be cut into bite-size pieces. Lines/Drains: peripheral Tele: sinus tach Medications: Reviewed: Yes Vitals/I&O/Wt Last Vital Signs Temp 98.5 F 04/08/25 04:33 Pulse 118 H 04/08/25 08:00 Resp 23 H 04/08/25 08:00 BP 123/71 04/08/25 08:00 Pulse Ox 99 04/08/25 08:00 O2 Del Method Nasal Cannula 04/06/25 16:40 O2 Flow Rate 2 04/06/25 16:40 04/07/25 04/08/25 04/08/25 22:59 06:59 14:59 Intake Total 1662.125 / 2590.458 1350 / 3940.458 10 / 10 Output Total 800 / 3200 1600 / 4800 Balance 862.125 / -609.542 -250 / -859.542 10 / 10 Weight last 48 hrs Weight 137.711 kg Weight 133.719 kg Weight 133 kg Physical Exam 2 Narrative: Alert and oriented. He appears older than his stated age he is morbidly obese with a left AKA. No significant distress today Heart is regular normal S1-S2 without murmurs clicks gallops or rubs Lungs clear to auscultation without wheezes rales or rhonchi Abdomen soft morbidly obese with large pannus nontender normal active bowel sounds Right lower extremity thin with atrophy Unable to assess left stump in current position, it is underneath his abdominal pannus Urinary Catheter Management: Constantino: Cath Placed During This Visit: no Reason for Continuing Indwelling Catheter: Chronic Indwelling Urinary Catheter on Admission Data 04/08/25 03:53 04/08/25 03:53 Micro: Microbiology 04/06/25 07:07 Urine Culture - Preliminary Urine,Clean Catch Gram Negative Rods 04/06/25 06:15 Blood Culture - Preliminary Blood Escherichia coli 04/06/25 06:06 Blood Culture - Preliminary Blood Escherichia coli A&P Assessment and plan 1. Septic shock: Patient initially admitted to the ICU. He was placed on Levophed. The patient responded well to fluid hydration and antibiotics. The subsequent morning Levophed was discontinued on 04/06/2025. Patient has E. coli in the urine and blood. 2. Morbid obesity: 3. Open wound of left lower quadrant of abdominal wall without penetration into peritoneal cavity: Discussed with RN the findings on exam. Patient has approximately 4 wounds in the intertrigo space in the pannus area. These have been cleansed and dressed. Patient has a wound in the right groin addressed as well. He has a stasis ulcer on his buttocks and a right hip pressure ulcer. All skin abnormalities have been addressed with wound care. 4. Intertriginous dermatitis associated with moisture: As above 5. Chronic indwelling Constantino catheter: 6. Systolic congestive heart failure: Patient's heart failure medications are on hold due to sepsis hypotension. Patient's home med of Bumex 3 mg twice a day, metoprolol 100 mg twice daily and Cardizem 180 mg daily are all on hold Plan to finish last bag of fluids and hopefully start either metoprolol or Cardizem this evening 7. Diabetes type 2, controlled: Patient is on a drastically reduced dose of his insulin. Blood sugars are running 150-300 yesterday morning. 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 Catheter-associated urinary tract infection: Patient has a chronic Constantino catheter. I see that he takes Flomax twice daily. I have that on hold I am not sure if that is indicated with a Constantino catheter 10. Obstructive sleep apnea syndrome: Patient wearing CPAP at night 11. Amputation above knee: Plan: 1. Transfer to floor without telemetry 2. Repeat blood cultures today 3. Follow blood pressure and heart rate closely and restart beta-shaquille calcium channel shaquille and diuretic as indicated 4. Increase insulin for better glucose control PDMP PDMP Reviewed: Not Reviewed Attestations 2 Medical Necessity Statement*: Patient requires greater than 2 midnight stay for severe septic shock. 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
--- NOTE | 2025-04-08 12:51 | PC.NURSE ---
report called transfered back to bed and then transfered room 254
[2025-04-08] MEDS: meropenem 1,000 mg SDV 1000 MG IVP ×2 (15:04→21:00)
[2025-04-08] MEDS: fluticasone nasal spray 16gm Btl 1 SPRAY INTRANASAL (17:10)
[2025-04-08] MEDS: ATORVASTATIN 20 MG TABLET PO (20:53)
[2025-04-09] VITALS (35 sets, daily range): BP systolic 107–171; BP diastolic 61–95; PULSE 76–125; RESP 16–36; TEMP 37.3–38; O2SAT 89–98
[2025-04-09 04:01] LABS: Hematocrit 25.8 % (37-53); Hemoglobin 8.00 g/dL (11.27-16.99); Mean Corpuscular HGB Conc 31.0 g/dL (30-55); Mean Corpuscular Hemoglobin 25.2 pg (27-33); Mean Corpuscular Volume 81.4 fl (82-101); Nucleated Red Blood Cells % 0 %; Platelet Count 102 10^3/cmm (157-399); Red Blood Count 3.17 10^6/uL (3.85-5.65); White Blood Count 5.62 10^3/uL (3.29-11.43)
[2025-04-09 04:19] LABS: Anion Gap 15.7 (5-19); Blood Urea Nitrogen 27 mg/dL (8-23); Calcium 8.9 mg/dL (8.5-10.5); Carbon Dioxide 17 mmol/L (22-29); Chloride 110 mmol/L (98-107); Glucose 208 mg/dL (65-115); Osmolality Calculated 299 mOsm/kg (285-295); Potassium 3.7 mmol/L (3.5-5.1); Sodium 139 mmol/L (136-145)
[2025-04-09] MEDS: multivitamin therapeutic Tablet 1 TAB PO (04:50)
[2025-04-09] MEDS: insulin glargine 100 units/1 mL 10 UNIT SUBCUT (04:50)
[2025-04-09] MEDS: fluticasone nasal spray 16gm Btl 1 SPRAY INTRANASAL ×2 (04:52→16:57)
[2025-04-09] MEDS: meropenem 1,000 mg SDV 1000 MG IVP ×3 (05:03→22:05)
--- NOTE | 2025-04-09 10:10 | PC.SOCIAL ---
IMM Update pg 2 of IMM updated and reviewed w/ patient. Copy provided and copy dated, initialed and placed in chart.
--- NOTE | 2025-04-09 11:45 | PM.CONSULT ---
Providers/Reason For Consult Consulting Physician/Specialty*: Teetee Bryant MD/ Infectious disease Reason for Consult*: ESBL E.coli bacteremia Attending Physician: Yo Barrera MD Primary Care Provider: Chris Parker DO History of Present Illness History of Present Illness Marciano Alonso is a 59 year old male, [place] resident cormorbidities including CHF, eft above-knee amputation, chronic indwelling Pereira catheter, hypertension, diabetes, atrial fibrillation, morbid obesity, decubitus ulcers to the hip brought from the [facility] due to fever body aches and diarrhea. He was found to have ESBL E.coli bacteremia, with same organism isolated from urine culture. His Pereira was changed here upon arrival. He thinks he may be on chronic supression as outpatient but does not know name of the medication. States he has had multiple episodes of UTI in the past. He reports having A pereira for the past 6 months related to ?retention and enlarged prostate? . He is followed by urology at [facility] in [facility]. CT abdomen upon admission without hydronephrosis or other obstructive process. Review of Systems General: Reports: 10 or more systems reviewed and unremarkable except in HPI and below Const: Denies: fever(s), chills or body aches Eyes: Denies: change in vision, blurry vision or photophobia ENMT: Reports: hoarseness; Denies: throat pain, enlarged tonsils, odynophagia or nasal congestion Card: Denies: chest pain, palpitations, irregular heart rhythm, edema, swelling of feet/ankles, lightheadedness, pre-syncope, dyspnea on exertion or orthopnea Resp: Denies: dyspnea, productive cough, non-productive cough, wheezing, stridor, pain on inspiration, change in phlegm color, hemoptysis or chest congestion GI: Denies: abdominal pain, nausea, vomiting, hematemesis, coffee ground emesis, dysphagia, heartburn, diarrhea, constipation, GI cramping, change in stool character, hematochezia or melena : Denies: flank pain, dysuria, urinary frequency, urinary urgency, urinary hesitancy or hematuria Musc: Denies: neck pain, back pain, extremity pain, joint swelling, joint warmth or deformity Neuro: Denies: headache(s), numbness in extremities, weakness in extremities, sensory changes, difficulty walking, frequent falls, dizziness, vertigo, behavioral changes, Slurred speech present or seizure-like activity Psych: Denies: anxiety, depression, suicidal ideation or homicidal ideation Endo: Denies: polyuria, polydipsia, tired all the time, cold intolerance or hot flashes Darion/Lymph: Denies: easy bruising or easy bleeding Medications/Allergies Home Medications ?Medication ?Instructions ?Recorded ?Confirmed ?Last Taken ?Type allopurinol 300 mg tablet 300 mg PO DAILY 05/08/19 04/06/25 04/05/25 History cholecalciferol (vitamin D3) 25 1,000 unit PO DAILY 05/08/19 04/06/25 04/05/25 History mcg (1,000 unit) capsule montelukast 10 mg tablet 10 mg PO BEDTIME 05/08/19 04/06/25 04/05/25 History fluticasone propionate 50 1 spray intranasal BID #15.8 mL 07/18/19 04/06/25 04/05/25 Rx mcg/actuation nasal spray,suspension metoclopramide HCl 10 mg tablet 10 mg PO QID Indigestion 04/16/22 04/06/25 04/05/25 History (Reglan) multivit-minerals no.60-ferrous 1 tab PO DAILY 10/16/22 04/06/25 04/05/25 History fumarate-folic acid 27 mg-1 mg tablet (Niva-Plus) metoprolol tartrate 100 mg tablet 100 mg PO BID 12/28/23 04/06/25 04/05/25 History pregabalin 50 mg capsule 50 mg PO TID #90 caps 03/22/24 04/06/25 04/05/25 Rx magnesium hydroxide 400 mg/5 mL 30 ml PO .Q72H PRN Constipation 04/24/24 04/06/25 04/02/25 History oral suspension (Milk of Magnesia) sodium phosphates 19 gram-7 118 ml VA DAILY PRN Constipation 04/24/24 04/06/25 03/24/25 History gram/118 mL enema (Fleet Enema) tamsulosin 0.4 mg capsule (Flomax) 0.4 mg PO BID 04/24/24 04/06/25 04/05/25 History acetaminophen 500 mg capsule 500 mg PO Q6H PRN pain or fever 09/08/24 04/06/25 04/05/25 History budesonide 160 mcg-glycopyr 9 2 inh inhalation BID 09/08/24 04/06/25 04/05/25 History mcg-formot 4.8 mcg/actuation HFA inhaler (Breztri Aerosphere) albuterol sulfate 2.5 mg/3 mL 2.5 mg inhalation Q6H PRN Dyspnea 02/05/25 04/06/25 02/13/25 History (0.083 %) solution for nebulization atorvastatin 20 mg tablet 20 mg PO DAILY 02/05/25 04/06/25 04/05/25 History brinzolamide 1 % eye 1 drp ophthalmic (eye) BID 02/05/25 04/06/25 04/05/25 History drops,suspension latanoprost 0.005 % eye drops 1 drp ophthalmic (eye) BEDTIME 02/05/25 04/06/25 04/05/25 History triamcinolone acetonide 0.1 % 1 applic topical BID PRN skin 02/09/25 04/06/25 Unknown History topical cream irritation on ears diltiazem HCl 180 mg 180 mg PO DAILY #30 caps 02/11/25 04/06/25 04/05/25 Rx capsule,extended release 24 hr (Cardizem CD) amiodarone 400 mg tablet 400 mg PO QAM 02/14/25 04/06/25 04/05/25 History bisacodyl 5 mg tablet 10 mg PO DAILY PRN Constipation 02/14/25 04/06/25 04/02/25 History miscellaneous medical supply 02/14/25 04/06/25 Unknown History (Ocusoft Eyelid Cleansing Pads) semaglutide 1 mg/dose (4 mg/3 mL) 1 mg SUBCUT Q7D 02/14/25 04/06/25 04/02/25 History subcutaneous pen injector (Ozempic) insulin aspart U-100 100 unit/mL 30 unit SUBCUT TID 03/13/25 04/06/25 04/05/25 History (3 mL) subcutaneous pen insulin degludec 100 unit/mL (3 120 unit SUBCUT BEDTIME 03/13/25 04/06/25 04/05/25 History mL) subcutaneous pen (Tresiba FlexTouch U-100 insulin) menthol 0.8 % topical powder (Gold See Rx Instructions .Route .COMPLEX 03/13/25 04/06/25 04/05/25 History Castillo Medicated Body) ondansetron 8 mg disintegrating 8 mg PO Q6H PRN Nausea And Vomiting 03/13/25 04/06/25 04/02/25 History tablet potassium chloride 20 mEq 20 meq PO DAILY 03/13/25 04/06/25 04/05/25 History tablet,extended release(part/cryst) spironolactone 50 mg tablet 50 mg PO DAILY 03/13/25 04/06/25 04/05/25 History omeprazole 40 mg capsule,delayed 40 mg PO BID 03/19/25 04/06/25 04/05/25 History release bumetanide 1 mg tablet 3 mg PO BID 03/21/25 04/06/25 04/05/25 History apixaban 5 mg tablet (Eliquis) 5 mg PO BID #180 tabs 03/22/25 04/06/25 Unknown Rx hydrocodone 5 mg-acetaminophen 325 1 tab PO .Q8H PRN pain 04/06/25 04/06/25 04/06/25 History mg tablet lidocaine 4 % topical patch 1 patch topical BID 04/06/25 04/06/25 04/05/25 History (Lidocaine Pain Relief) lubiprostone 8 mcg capsule 8 mcg PO BID 04/06/25 04/06/25 04/05/25 History miscellaneous medical supply 04/06/25 04/06/25 Unknown History (Ocusoft Eyelid Cleansing Pads) semaglutide 2 mg/dose (8 mg/3 mL) 2 mg SUBCUT Q7D 04/06/25 04/06/25 Unknown History subcutaneous pen injector (Ozempic) white petrolatum-mineral oil 94 1 applic ophthalmic (eye) BEDTIME 04/06/25 04/06/25 04/05/25 History %-3 % eye ointment (GenTeal Tears Severe (petrolatum-mineral oil)) Allergies Allergy/AdvReac Type Severity Reaction Status Date / Time Penicillins Allergy ALGY-Hives Verified 03/20/25 10:49 Sulfa (Sulfonamide Allergy ALGY-Hives Verified 03/20/25 10:49 Antibiotics) Current Medications Generic Name Dose Route Start Last Admin Trade Name Freq PRN Reason Stop Dose Admin Acetaminophen 500 mg 04/06/25 12:14 04/09/25 20:46 Acetaminophen 500 Mg Tablet PO 500 mg Q6H PRN Administration pain or fever Hydrocodone Bitart/Acetaminophen 1 tab 04/07/25 14:27 04/08/25 08:46 Hydrocodone-Acetaminophen 5-325 Mg Tablet PO 1 tab Q6H PRN Administration MODERATE PAIN Allopurinol 300 mg 04/09/25 05:00 04/09/25 04:50 Allopurinol 300 Mg Tablet PO 300 mg DAILY DOMITILA Administration Amiodarone HCl 400 mg 04/09/25 05:00 04/09/25 04:50 Amiodarone 200 Mg Tablet PO 400 mg QAM DOMITILA Administration Apixaban 5 mg 04/08/25 17:00 04/09/25 16:57 Apixaban 5 Mg Tablet PO 5 mg BID DOMITILA Administration Artificial Tears 1 drop 04/07/25 18:46 04/08/25 20:54 Artificial Tears Op Soln 15 Ml Btl EYE-BOTH 1 drop Q4H PRN Administration DRY EYE(S) Artificial Tears 1 applic 04/08/25 21:00 04/09/25 22:17 Artificial Tears Op Oint 3.5 Gm EYE-BOTH 1 applic BEDTIME DOMITILA Administration Atorvastatin Calcium 20 mg 04/08/25 21:00 04/09/25 20:47 Atorvastatin 20 Mg Tablet PO 20 mg BEDTIME DOMITILA Administration Budesonide 0.5 mg 04/08/25 20:00 04/09/25 19:56 Budesonide 0.5 Mg/2 Ml Neb INHALATION 0.5 mg BID.RESPIRATORY DOMITILA Administration Bumetanide 1 mg 04/09/25 18:00 04/09/25 16:57 Bumetanide 0.25 Mg/Ml Sdv 4 Ml IVP 1 mg Q12H DOMITILA Administration Famotidine 20 mg 04/09/25 17:00 04/09/25 16:58 Famotidine 20 Mg Tablet PO 20 mg BID DOMITILA Administration Fluticasone Propionate 1 spray 04/08/25 17:00 04/09/25 16:57 Fluticasone Nasal [place] 16gm Btl INTRANASAL 1 spray BID DOMITILA Administration DILTIAZEM HCL/D5W 125 mg in 125 mls @ 0 mls/hr 04/09/25 14:15 04/09/25 17:03 Cardizem IV 15 mg/hr .Q0M DOMITILA 15 mls/hr Protocol Titration Per Protocol Insulin Glargine 10 unit 04/06/25 12:10 04/09/25 04:50 Insulin Glargine 100 Units/1 Ml SUBCUT 10 unit DAILY DOMITILA Administration Insulin Human Lispro 0 unit 04/06/25 18:00 04/09/25 20:47 Insulin Lispro 100 Unit/1 Ml SUBCUT 12 unit WM&BEDTIME DOMITILA Administration Protocol Insulin Human Lispro 10 unit 04/09/25 17:00 04/09/25 16:56 Insulin Lispro 100 Unit/1 Ml SUBCUT 10 unit TIDAC DOMITILA Administration Ipratropium [place] 0.5 mg 04/09/25 20:00 04/09/25 19:56 Ipratropium 0.5 Mg/2.5 Ml Neb INHALATION 0.5 mg Q6H.RESP DOMITILA Administration Latanoprost 1 drop 04/08/25 21:00 04/09/25 20:58 Latanoprost 0.005% Op Soln 2.5 Ml Btl EYE-BOTH Not Given BEDTIME DOMITILA Levalbuterol HCl 0.63 mg 04/09/25 20:00 04/09/25 19:56 Levalbuterol 0.63 Mg/3 Ml Neb INHALATION 0.63 mg Q6H.RESP DOMITILA Administration Lidocaine 1 patch 04/09/25 05:00 04/09/25 04:52 Lidocaine 5% Patch TOPICAL 1 patch DAILY DOMITILA Administration Meropenem 1,000 mg 04/08/25 14:00 04/09/25 22:05 Meropenem 1,000 Mg Sdv IVP 1,000 mg Q8H DOMITILA Administration Protocol Metoclopramide HCl 10 mg 04/08/25 11:00 04/09/25 22:47 Metoclopramide 10 Mg Tablet PO Not Given QID DOMITILA Metoprolol Tartrate 100 mg 04/09/25 21:00 04/09/25 21:19 Metoprolol Tartrate 50 Mg Tablet PO 100 mg BID@0900,2100 DOMITILA Administration Montelukast Sodium 10 mg 04/08/25 21:00 04/09/25 20:47 Montelukast Sodium 10 Mg Tablet PO 10 mg BEDTIME DOMITILA Administration Multivitamins Therapeutic 1 tab 04/09/25 05:00 04/09/25 04:50 Multivitamin Therapeutic Tablet PO 1 tab DAILY DOMITILA Administration Nitroglycerin 0.4 mg 04/09/25 21:47 04/09/25 22:01 Nitroglycerin 0.4 Mg Sublingual Tablet SUBLINGUAL 0.4 mg Q5M PRN Administration CHEST PAIN Ondansetron HCl 8 mg 04/08/25 10:13 04/09/25 21:43 Ondansetron Hcl Odt 4 Mg Tab PO 8 mg Q6H PRN Administration Nausea And Vomiting Potassium Chloride 20 meq 04/09/25 05:00 04/09/25 04:50 Potassium Chloride Er 20 Meq Tablet PO 20 meq DAILY DOMITILA Administration Pregabalin 50 mg 04/08/25 13:00 04/09/25 20:47 Pregabalin 50 Mg Capsule PO 50 mg TID DOMITILA Administration Vitamin D 1,000 unit 04/09/25 05:00 04/09/25 04:50 Cholecalciferol (Vitamin D3) 1,000 Unit Tablet PO 1,000 unit DAILY DOMITILA Administration PFSH Acute PFSH: Medical History (Updated 04/10/25 @ 00:03 by Teetee Bryant MD) USP (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 of oral hypoglycemic drugs UTI (urinary tract infection) Chronic indwelling Pereira catheter Sleep apnea, unspecified Constipation Dry eye syndrome of unspecified lacrimal gland Unspecified glaucoma Gastro-esophageal reflux disease without esophagitis Benign prostatic hyperplasia without lower urinary tract symptoms Gout, unspecified Hyperlipidemia, unspecified 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 heart failure 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 Muscle weakness (generalized) COPD (chronic obstructive pulmonary disease) USP (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 of anticoagulants Chronic atrial fibrillation, unspecified Open wound of left lower quadrant of abdominal wall without penetration into peritoneal cavity Intertriginous dermatitis associated with moisture Morbid obesity Atrial flutter Encounter for screening colonoscopy Repeat screening colonoscopy in 10 years unless otherwise specified Chronic low back pain Chronic right shoulder pain Diabetes mellitus Shoulder pain BILATERAL Encounter for long-term use of opiate analgesic Right knee pain Amputation above knee Left Diabetes type 2, controlled Essential hypertension Dysuria-frequency syndrome Seizure BPH (benign prostatic hyperplasia) Primary osteoarthritis of both knees r knee Obstructive sleep apnea syndrome Surgical History History of left above knee amputation History of shoulder surgery 2002 x 2 L shoulder Family History Other Heart disease Hypertension Social History Smoking and tobacco/nicotine status: never used tobacco/nicotine Quit status (tobacco/nicotine): not considering quitting Second hand smoke exposure: No Alcohol intake: never Substance/Drug Use: never Additional social history: Patient chews a can of tobacco daily. 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 Vitals/I&O/Wt Last Vital Signs Temp 100.4 F H 04/09/25 23:38 Pulse 96 04/09/25 23:38 Resp 22 H 04/09/25 23:38 BP 107/75 04/09/25 23:38 Pulse Ox 98 04/09/25 23:38 O2 Del Method Nasal Cannula 04/09/25 23:38 O2 Flow Rate 2 04/09/25 23:38 04/09/25 04/09/25 04/10/25 14:59 22:59 06:59 Intake Total 1616.667 / 1616.667 113.250 / 1729.917 Output Total 4450 / 4450 Balance 1616.667 / 1616.667 -4336.750 / -2720.083 Weight last 48 hrs Weight 138.062 kg Weight 137.711 kg Physical Exam Narrative: General: No acute distress, AO x3 HEENT: PERRLA, pupils bilaterally equal and reactive, pallors not present Chest: crackles to auscultation B/L CVS: S1-S2 regular, no murmurs, no tachycardia, no gallops, no rubs Abdomen: Soft, large pannus, dry skin skin folds, no intertrigo Extremities: s/p left AKA, stage 2 skin changes over base of scrotum and back Urinary Catheter Management: Pereira: Cath Placed During This Visit: no Reason for Continuing Indwelling Catheter: Accurate Measurement of Urinary Output in Critically Ill Patients Data 04/09/25 03:04 04/09/25 03:04 Other Labs: Radiology Impressions Chest/Abdomen/Pelvis CT 04/06/25 07:24 IMPRESSION: Overall exam is limited by patient's difficulty positioning and condition with beam hardening artifact 1. Residual trace LEFT pleural fluid with subsegmental atelectasis LEFT lower lobe. No new pulmonary infiltrates. 2. No hydronephrosis in either kidney. 3. Splenomegaly with mild hepatomegaly. 4. Cholelithiasis. Gallbladder is partially contracted. 5. Pereira catheter. 6. Sigmoid diverticulosis. 7. No other significant changes since the prior studies. Head CT 04/06/25 15:28 IMPRESSION: No acute intracranial abnormality. Chest X-Ray 04/09/25 20:10 IMPRESSION: Patient remains rotated RAMEY. Apparent bibasilar opacities, could be related to edema or infection though may be related to rotation and poor inspiration. Laboratory Results WBC 5.62 10^3/uL (3.29-11.43) 04/09/25 03:04 RBC 3.17 10^6/uL (3.85-5.65) L 04/09/25 03:04 Hgb 8.00 g/dL (11.27-16.99) L 04/09/25 03:04 Hct 25.8 % (37-53) L 04/09/25 03:04 MCV 81.4 fl (82-101) L 04/09/25 03:04 MCH 25.2 pg (27-33) L 04/09/25 03:04 MCHC 31.0 g/dL (30-55) 04/09/25 03:04 RDW 22.1 % (12.1-15.1) H 04/09/25 03:04 Plt Count 102 10^3/cmm (157-399) L 04/09/25 03:04 MPV Not Reportable 04/09/25 03:04 Neut % (Auto) 72.4 % 04/09/25 03:04 Lymph % (Auto) 9.8 % 04/09/25 03:04 [place] % (Auto) 15.1 % 04/09/25 03:04 Eos % (Auto) 1.1 % 04/09/25 03:04 Baso % (Auto) 0.5 % 04/09/25 03:04 Neut # (Auto) 4.07 10^3/uL (1.8-7.7) 04/09/25 03:04 Lymph # (Auto) 0.6 10^3/uL (0.8-4.8) L 04/09/25 03:04 [place] # (Auto) 0.9 10^3/uL (0.2-0.9) 04/09/25 03:04 Eos # (Auto) 0.1 10^3/uL (0.0-0.8) 04/09/25 03:04 Baso # (Auto) 0.0 10^3/uL (0.0-0.1) 04/09/25 03:04 Nucleated RBC % (auto) 0 % 04/09/25 03:04 Nucleated RBCs # 0.0 /100WBC 04/09/25 03:04 Specimen Type Arterial 04/06/25 15:40 Sample Site Brachial, left 04/06/25 15:40 ABG pH 7.46 (7.35-7.45) H 04/06/25 15:40 ABG pCO2 29.4 mmHg (35-45) L 04/06/25 15:40 ABG pO2 67.4 mmHg (80.0-100.0) L 04/06/25 15:40 ABG PO2/FiO2 Ratio 210 04/06/25 15:40 ABG HCO3 21.1 mmol/L (22-26) L 04/06/25 15:40 ABG O2 Saturation 94.4 04/06/25 15:40 ABG Base Excess -2.1 mmol/L (-2.0-2.0) L 04/06/25 15:40 Dio Test N/a 04/06/25 15:40 A-a O2 Gradient 15.9 mmHg (5-10) H 04/06/25 15:40 Hematocrit 28.7 % (42-52) L 04/06/25 15:40 Hgb O2 Saturation 92.1 % (95-100) L 04/06/25 15:40 Carboxyhemoglobin 1.3 %THgb (0.4-20.1) 04/06/25 15:40 Methemoglobin 1.2 % (0.4-1.5) 04/06/25 15:40 Total Hemoglobin 9.3 g/dL (14-18) L 04/06/25 15:40 Sodium 137.0 mmol/L (131-143) 04/06/25 15:40 Potassium 3.6 mmol/L (3.5-5.0) 04/06/25 15:40 Glucose 207.0 mg/dL (70-115) H 04/06/25 15:40 Ionized Calcium 1.2 mmol/L (1.1-1.4) 04/06/25 15:40 O2 Delivery Device Nc 04/06/25 15:40 O2 Liters/Min 3.0 % 04/06/25 15:40 FiO2 32.0 % 04/06/25 15:40 Face Man ID Gd 04/06/25 15:40 Sodium 139 mmol/L (136-145) 04/09/25 03:04 Potassium 3.7 mmol/L (3.5-5.1) 04/09/25 03:04 Chloride 110 mmol/L (98-107) H 04/09/25 03:04 Carbon Dioxide 17 mmol/L (22-29) L 04/09/25 03:04 Anion Gap 15.7 (5-19) 04/09/25 03:04 BUN 27 mg/dL (8-23) H 04/09/25 03:04 Creatinine 0.9 mg/dL (0.7-1.2) 04/09/25 03:04 GFR Calculation 85.8 mL/min (90-130) L 04/09/25 03:04 Glucose 208 mg/dL (65-115) H 04/09/25 03:04 POC Glucose 360 mg/dL (70-110) H 04/09/25 19:57 Calculated Osmolality 299 mOsm/kg (285-295) H 04/09/25 03:04 Lactic Acid 3.1 mmol/L (0.5-2.2) H 04/06/25 05:10 Lactic Acid (Sepsis) 2.0 mmol/L (0.5-2.2) 04/06/25 08:04 Lactate 3.2 mmol/L (0.5-2.2) H 04/06/25 13:24 Calcium 8.9 mg/dL (8.5-10.5) 04/09/25 03:04 Magnesium 2.0 mg/dL (1.7-2.3) 04/06/25 05:10 Total Bilirubin 1.8 mg/dL (0.15-1.2) H 04/07/25 04:13 Direct Bilirubin 0.88 mg/dL (0.00-0.30) H 04/07/25 04:13 AST 61 U/L (0-40) H 04/07/25 04:13 ALT 50 U/L (0-41) H 04/07/25 04:13 Alkaline Phosphatase 92 U/L (40-130) 04/07/25 04:13 Total Protein 6.2 g/dL (6.6-8.7) L 04/07/25 04:13 Albumin 3.0 g/dL (3.5-5.2) L 04/07/25 04:13 Globulin 3.2 g/dL (1.3-4.6) 04/07/25 04:13 Procalcitonin 0.80 ng/mL (0-0.5) H 04/09/25 14:10 Urine Color Yellow (Yellow) 04/06/25 07:07 Urine Appearance Turbid (CLEAR) A 04/06/25 07:07 Urine pH 5.0 (5-7) 04/06/25 07:07 Ur Specific [place] 1.014 (1.005-1.030) 04/06/25 07:07 Urine Protein 1+ (Negative) A 04/06/25 07:07 Urine Glucose (UA) Negative (Normal) 04/06/25 07:07 Urine Ketones Negative (Negative) 04/06/25 07:07 Urine Blood 2+ (Negative) A 04/06/25 07:07 Urine Nitrate Negative (Negative) 04/06/25 07:07 Urine Bilirubin Negative (Negative) 04/06/25 07:07 Urine Urobilinogen 0.2 mg/dL (Negative) 04/06/25 07:07 Ur Leukocyte Esterase 3+ (Negative) A 04/06/25 07:07 Urine RBC 0-2 /hpf (0-2) 04/06/25 07:07 Urine WBC >100 /hpf (0-5) H 04/06/25 07:07 Ur Squamous Epith Cells 0-5 /hpf (0-5) 04/06/25 07:07 Amorphous Sediment Not Reportable 04/06/25 07:07 Urine Bacteria 4+ /hpf (NONE) H 04/06/25 07:07 Hyaline Casts 21.08 /lpf 04/06/25 07:07 Vancomycin Trough 10.3 ug/mL (10-15) 04/09/25 12:51 Influenza A (PCR) Negative (Negative) 04/06/25 06:40 Influenza Type B (PCR) Negative (Negative) 04/06/25 06:40 RSV (PCR) Negative (Negative) 04/06/25 06:40 SARS-CoV-2 (PCR) Negative (Negative) 04/06/25 06:40 Micro: Microbiology 04/08/25 13:02 Blood Culture - Preliminary Blood NEGATIVE TO DATE 04/08/25 13:00 Blood Culture - Preliminary Blood NEGATIVE TO DATE [facility] [address] [place] [address] DR. 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 RX --------- ------ * Amikacin <=16 S * Amoxicillin/Clavulanate 16/8 I * Ampicillin >16 R * Ampicillin/Sulbactam >16/8 R * Aztreonam >16 R * Cefepime >16 R * Ceftriaxone >32 R * Cefuroxime >16 R * Ciprofloxacin >2 R * Gentamicin <=2 S * Imipenem <=1 S * Levofloxacin >4 R * Nitrofurantoin <=32 S * Tetracycline >8 R * Trimethoprim/Sulfamethoxazole <=2/38 S * Piperacillin/Tazobactam 32 I Urine Culture Preliminary (changed) 04/07/25-59 Organism 1 Gram Negative Rods Paint Bank Count >100,000 CFU/ml DAY 1, RESULTS TO FOLLOW [facility] [address] [place] [address] [id number] [address] ODELL SANTILLAN, AUTOM[employer]BI[employer] PAINTER NAME: Marciano Alonso LOC: [facility] U #: [id number] AGE/SX: 59/M ROOM: [facility] RE04/06/[address]: Yo Barrera MD : 1965 BED: 1 DIS: FAX #: STATUS: ADM IN TLOC: Spec #: [id number] Henrique: 04/06/25 Status: COMP Req #: [id number] Recd: 04/06/[address]: Baudilio Greenberg MD Src: Blood SpDesc: Ordered: Bcult Procedure Result Verified Site Blood Culture Final 04/08/25-1319 4 OF 4 BOTTLES POSITIVE DIRECT GRAM STAIN: GRAM NEGATIVE RODS CTX-M (cefotaxime-hydrolyzing beta-lactamase) antimicrobial resistance marker detected. CTX-M enzymes are plasmid- mediated, class A extended spectrum beta-lactamases ( ESBLs) Organism 1 Escherichia coli esbl Growth 4 BOTTLES Gram Stain Charge Charge for Gram Stain CRITICAL RESULT YES/NO: YES CRITICAL CALLED BY: KIM TO AND READ BACK BY: ICU FOR CALL BACK DATE: 04/06/25 TIME: 1752 2ND CRITICAL RES YES/NO: YES 2ND CRITICAL CALLED BY: KIM 2ND TO AND READ BACK BY: MICHELLE DATE: 04/06/25 2ND CRITICAL TIME: 180 [facility] RX --------- ------ * Amikacin 32 I * Amoxicillin/Clavulanate >16/8 R * Ampicillin >16 R * Ampicillin/Sulbactam >16/8 R * Aztreonam >16 R * Cefepime >16 R * Ceftriaxone >32 R * Cefuroxime >16 R * Ciprofloxacin >2 R * Gentamicin <=2 S * Imipenem <=1 S * Levofloxacin >4 R * Tetracycline >8 R * Trimethoprim/Sulfamethoxazole <=2/38 S * Piperacillin/Tazobactam 64 I Blood Culture Preliminary (changed) 04/07/25-702 4 OF 4 BOTTLES POSITIVE DIRECT GRAM STAIN: GRAM NEGATIVE RODS CTX-M (cefotaxime-hydrolyzing beta-lactamase) antimicrobial resistance marker detected. CTX-M enzymes are plasmid- mediated, class A extended spectrum beta-lactamases ( ESBLs) RESULTS TO FOLLOW Organism 1 Escherichia coli Growth 4 BOTTLES Gram Stain Charge Charge for Gram Stain CRITICAL RESULT YES/NO: YES CRITICAL CALLED BY: KIM TO AND READ BACK BY: ICU FOR CALL BACK DATE: 04/06/25 TIME: 1752 CRITICAL RES YES/NO: YES 2ND CRITICAL CALLED BY: KIM 2ND TO AND READ BACK BY: MICHELLE DATE: 04/06/25 2ND CRITICAL TIME: 180 Blood Culture Preliminary (changed) 04/06/25-1838 2 OF 4 BOTTLES POSITIVE DIRECT GRAM STAIN: GRAM NEGATIVE RODS RESULTS TO FOLLOW Gram Stain Charge Charge for Gram Stain CRITICAL RESULT YES/NO: YES CRITICAL CALLED BY: KIM TO AND READ BACK BY: ICU FOR CALL BACK DATE: 04/06/25 TIME: 1752 2ND CRITICAL RES YES/NO: YES 2ND CRITICAL CALLED BY: KIM 2ND TO AND READ BACK BY: MICHELLE DATE: 04/06/25 2ND CRITICAL TIME: 180 Blood Culture Preliminary (changed) 04/06/25-1802 1 OF 4 BOTTLES POSITIVE DIRECT GRAM STAIN: GRAM NEGATIVE RODS RESULTS TO FOLLOW Gram Stain Charge Charge for Gram Stain CRITICAL RESULT YES/NO: YES CRITICAL CALLED BY: KIM TO AND READ BACK BY: ICU FOR CALL BACK DATE: 04/06/25 TIME: 175 2ND CRITICAL RES YES/NO: YES 2ND CRITICAL CALLED BY: KIM 2ND TO AND READ BACK BY: MICHELLE DATE: 04/06/25 2ND CRITICAL TIME: 180 Blood Culture Preliminary (changed) 04/06/25-1322 SPECIMEN COLLECTED A&P Assessment and plan 1. ESBL (extended spectrum beta-lactamase) producing bacteria infection: 2. Complicated UTI (urinary tract infection): Plan: 59M with chronic Pereira catheter, /o recurrent UTI admitted with ESBL E. coli septicemia blood cx + 04/06, currently pending from 04/08 URine cx and blood cx with ESBL E. coli Continue meropenem 1g iv every 8 hrs as currently running Await fever curve improvement, clearance of blood cx Diarrhea appears to have resolved, no BM today. Will follow PDMP PDMP Reviewed: Not Reviewed Consult Attestations Medical Necessity Statement: per admitting note Coding Level of Care Code Acute Code for g Fwd Diagnoses ESBL (extended spectrum beta-lactamase) producing bacteria infection A49.9; Z16.12 Complicated UTI (urinary tract infection) N39.0
[2025-04-09] MEDS: bumetanide 0.25 mg/mL SDV 4 mL 1 MG IVP ×2 (14:27→16:57)
--- NOTE | 2025-04-09 14:34 | PICC.NOTE ---
Midline placed to right basilic vein. Referred to vascular access nurse for midline placement due to need for IV antibiotics x 14 days. Risks and benefits discussed and informed consent obtained from pt sister, Tiara, via phone. Right arm assessed with right basilic vein measuring 4.8 mm, straight, and apparent best choice for placement. Using sterile technique and MST, right basilic vein accessed x 1 stick. Mid-arm circumference measured 10 cm from right AC 35 cm. Trimmed cath 15 cm with 0 cm external length noted. Line secured with stat-lock. Insertion site covered with Biopatch and TSM. Report given to bedside nurse, NILES Gao.
[2025-04-09 14:47] LABS: Procalcitonin 0.80 ng/mL (0-0.5)
[2025-04-09] MEDS: dilTIAZem 5 mg/mL SDV 5 mL 10 MG IVP (15:19)
[2025-04-09] MEDS: DILTIAZEM HCL/D5W 125 MG/125 ML BAG IV (15:20)
--- NOTE | 2025-04-09 15:33 | ECG_ITS ---
[facility] [place] [facility] Date: 2025-04-09 Pat Name: Marciano Alonso Department: Room: 106 Gender: Male Senior Product Analyst: : 1965 Requested By: Yo Barrera Order Number: [id number] Clarence MD: Parvez De Anda M.D. Measurements Intervals [place] Rate: 120 P: 0 [place]: 0 QRS: -66 QRSD: 152 T: 72 QT: 373 QTc: 529 Interpretive Statements ATRIAL FLUTTER/TACHYCARDIA WITH RAPID VENTRICULAR RESPONSE LEFT AXIS DEVIATION [QRS AXIS < -30] INTRAVENTRICULAR CONDUCTION DELAY ANTEROSEPTAL MYOCARDIAL INFARCTION , OF INDETERMINATE AGE [40+ ms Q WAVE IN V1-V4] Compared to ECG 04/06/2025 05:34:11 HEART RATE HAS INCREASED Electronically Signed On 04-11-2025 22:33:40 DESKTOP PUBLISHING SPECIALIST by Parvez De Anda M.D. [email or web address]
--- NOTE | 2025-04-09 15:45 | PM.PN ---
Subjective Subjective: Hospital course, labs appreciated. Patient seen laying comfortably in bed. Complaining of occasional difficulty breathing and palpitations. Denies any nausea, vomiting, headache. Febrile up to 100 Fahrenheit today morning. Medications: Reviewed: Yes Vitals/I&O/Wt Last Vital Signs Temp 99.3 F 04/09/25 15:41 Pulse 120 H 04/09/25 15:09 Resp 28 H 04/09/25 15:09 BP 139/64 04/09/25 15:09 Pulse Ox 98 04/09/25 15:09 O2 Del Method Nasal Cannula 04/09/25 11:33 O2 Flow Rate 3 04/09/25 11:22 04/09/25 04/09/25 04/09/25 06:59 14:59 22:59 Intake Total 1465 / 3305 1616.667 / 1616.667 Output Total 1000 / 1999 1400 / 1400 Balance 465 / 1305 1616.667 / 1616.667 -1400 / 216.667 Weight last 48 hrs Weight 138.062 kg Weight 137.711 kg Physical Exam Narrative: Alert and oriented. He appears older than his stated age he is morbidly obese with a left AKA. No significant distress today Heart is regular normal S1-S2 without murmurs clicks gallops or rubs Lungs clear to auscultation without wheezes rales or rhonchi Abdomen soft morbidly obese with large pannus nontender normal active bowel sounds Right lower extremity thin with atrophy Unable to assess left stump in current position, it is underneath his abdominal pannus Urinary Catheter Management: Constantino: Cath Placed During This Visit: no Reason for Continuing Indwelling Catheter: Chronic Indwelling Urinary Catheter on Admission Data 04/09/25 03:04 04/09/25 03:04 Micro: Microbiology 04/08/25 13:02 Blood Culture - Preliminary Blood NEGATIVE TO DATE 04/08/25 13:00 Blood Culture - Preliminary Blood NEGATIVE TO DATE 04/06/25 06:15 Blood Culture - Final Blood Escherichia coli esbl 04/06/25 06:06 Blood Culture - Final Blood Escherichia coli esbl 04/06/25 07:07 Urine Culture - Final Urine,Clean Catch Escherichia coli esbl A&P Assessment and plan 1. ESBL (extended spectrum beta-lactamase) producing bacteria infection: 2. Sepsis: 3. Atrial fibrillation with RVR: 4. Catheter-associated urinary tract infection: Patient has a chronic Constantino catheter. I see that he takes Flomax twice daily. I have that on hold I am not sure if that is indicated with a Constantino catheter 5. Systolic congestive heart failure: Patient's heart failure medications are on hold due to sepsis hypotension. Patient's home med of Bumex 3 mg twice a day, metoprolol 100 mg twice daily and Cardizem 180 mg daily are all on hold Plan to finish last bag of fluids and hopefully start either metoprolol or Cardizem this evening 6. Septic shock: Patient initially admitted to the ICU. He was placed on Levophed. The patient responded well to fluid hydration and antibiotics. The subsequent morning Levophed was discontinued on 04/06/2025. Patient has E. coli in the urine and blood. 7. Chronic indwelling Constantino catheter: 8. Morbid obesity: 9. Open wound of left lower quadrant of abdominal wall without penetration into peritoneal cavity: Discussed with RN the findings on exam. Patient has approximately 4 wounds in the intertrigo space in the pannus area. These have been cleansed and dressed. Patient has a wound in the right groin addressed as well. He has a stasis ulcer on his buttocks and a right hip pressure ulcer. All skin abnormalities have been addressed with wound care. 10. Intertriginous dermatitis associated with moisture: As above 11. Diabetes type 2, controlled: Patient is on a drastically reduced dose of his insulin. Blood sugars are running 150-300 yesterday morning. Will increase our base dose of Lantus and likely a sliding scale 12. 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 Obstructive sleep apnea syndrome: Patient wearing CPAP at night 14. Essential hypertension: 15. History of left above knee amputation: Plan: Plan for today: Blood culture from 04/06 positive for ESBL E. coli. 04/08 so far negative. Continue to monitor. Will consult ID for further recommendations. Patient will most likely need up to 2 to 4 weeks of IV antibiotics. PICC line as per ID. Patient does have symptoms of congestive heart failure currently. Stop IV fluids. Takes Bumex 3 mg twice daily at home. Start on 1 mg IV twice daily for now. Strict input of charting, daily weights. Currently in A-fib with RVR. Transfer to CSU. Start on Cardizem drip. Patient takes Cardizem 180 mg daily at home. Currently not on Cardizem. Continue with home dose of amiodarone 400 mg daily. Switch from DuoNeb to ipratropium, Xopenex every 6 hours. Full code Switch to carb consistent diet Eliquis will be sufficient for DVT prophylaxis Famotidine for PUD prophylaxis PDMP PDMP Reviewed: Not Reviewed Attestations Medical Necessity Statement*: Requires further hospitalization for management of ESBL bacteremia, A-fib with RVR, congestive heart failure Diagnoses ESBL (extended spectrum beta-lactamase) producing bacteria infection A49.9; Z16.12 Sepsis A41.9 Atrial fibrillation with RVR I48.91 Catheter-associated urinary tract infection T83.511A; N39.0 Systolic congestive heart failure I50.23 Heart failure chronicity: acute on chronic Septic shock A41.9; R65.21 Chronic indwelling Constantino catheter Z97.8 Morbid obesity E66.01 Open wound of left lower quadrant of abdominal wall without penetration into peritoneal cavity S31.104A Intertriginous dermatitis associated with moisture L30.4 Diabetes type 2, controlled E11.9 [facility]itentiary (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 of anticoagulants Z79.01 Obstructive sleep apnea syndrome G47.33 Sleep apnea type: obstructive Essential hypertension I10 History of left above knee amputation Z89.612
--- NOTE | 2025-04-09 17:52 | PC.NURSE ---
Dr Barrera notified that diltiazem at 15mg was not lowering patient's heart rate. Per written order from dr barrera via voalte, start amio with bolus and give 2mg of bumex ivp.
[2025-04-09] MEDS: amiodarone 150 MG/100 ML PREMIX 400 MG IV (18:15)
[2025-04-09] MEDS: bumetanide 0.25 mg/mL SDV 10 mL 2 MG IVP (18:19)
[2025-04-09] MEDS: AMIODARONE HCL/D5W 900 MG/500 ML BAG 33.33 MG IV (19:00)
--- NOTE | 2025-04-09 20:04 | ECG_ITS ---
[employer] Test Date: 2025-04-09 Pat Name: Marciano Alonso Department: Room: 106 Gender: Male Assistant Manager Pt: : 1965 Requested By: Yo Barrera Order Number: [id number] Clarence MD: Parvez De Anda M.D. Measurements Intervals [place] Rate: 122 P: 267 [place]: 122 QRS: -71 QRSD: 145 T: 72 QT: 376 QTc: 537 Interpretive Statements INDETERMINATE RHYTHM, POSSIBLE ATRIAL FLUTTER WITH RAPID VENTRICULAR RESPONSE LEFT ANTERIOR FASCICULAR BLOCK RIGHT BUNDLE BRANCH BLOCK [120+ ms QRS DURATION, UPRIGHT V1, 40+ ms S IN I/aVL/V4/V5/V6] POSSIBLE ANTERIOR MYOCARDIAL INFARCTION , OF INDETERMINATE AGE [30 ms Q WAVE IN V3/V4, OR R < 0.2 mV IN V4] Compared to ECG 04/09/2025 15:32:09 NO SIGNIFICANT CHANGE Electronically Signed On 04-11-2025 22:41:13 SPORTS DEVELOPMENT OFFICER by Parvez De Anda M.D. [email or web address]
--- NOTE | 2025-04-09 20:10 | XRR_ITS ---
PROCEDURE INFORMATION: Exam: XR Chest Exam date and time: 04/09/2025 9:32 PM Age: 59 years old Clinical indication: Other: Chf; Prior surgery; Surgery date: 6+ months; Surgery type: Lt shoulder; Additional info: Hypoxemia and afib with chf, please make sure PT is aligned for film. Last two xrays are TECHNIQUE: Imaging protocol: Radiologic exam of the chest. Views: 1 view. COMPARISON: CT chest abdpel w/*[id number] 04/06/2025 7:47 AM FINDINGS: Lungs: Patient remains rotated RAMEY. Apparent bibasilar opacities, could be related to edema or infection though may be related to rotation and poor inspiration. Pleural spaces: Unremarkable. No pleural effusion. No pneumothorax. Heart/Mediastinum: Unremarkable. No cardiomegaly. Bones/joints: Old right-sided rib fractures. XR/XR chest 1V portable [id number] IMPRESSION: Patient remains rotated RAMEY. Apparent bibasilar opacities, could be related to edema or infection though may be related to rotation and poor inspiration.
[2025-04-09] MEDS: ATORVASTATIN 20 MG TABLET PO (20:47)
[2025-04-09] MEDS: dilTIAZem ER (24HR) 180 mg Capsule PO (21:19)
[2025-04-09] MEDS: metoprolol tartrate 1 mg/1 mL SDV 5 mL 5 MG IVP ×2 (21:43→21:53)
[2025-04-09] MEDS: ondansetron hcl ODT 4 mg Tab 8 MG PO (21:43)
--- NOTE | 2025-04-09 22:01 | PM.PN ---
Subjective Subjective: 59-year-old male with morbid obesity sleep apnea atrial flutter admitted with UTI and hypotension beta-shaquille and diltiazem were held. Patient was tachycardic and those medications were restarted now that his blood pressure has improved but he became more short of breath with diaphoresis. EKG was done. I see that he is already on apixaban 5 mg twice a day. He has a new air curve 10 at bedside and he says he has been using it. EKG shows right bundle branch block and a fixed tachycardic rhythm at 110 maybe a flutter. I do not see flutter waves but on the radiation monitor with intermittent slowing there appears to be some fluttering atrial waves. Nitroglycerin 0.4 mg was given along with metoprolol 5 mg and his chest pain previously 02/09 now resolved Medications: Reviewed: Yes Vitals/I&O/Wt Last Vital Signs Temp 100.3 F H 04/09/25 21:02 Pulse 124 H 04/09/25 21:02 Resp 21 H 04/09/25 21:02 BP 168/71 04/09/25 21:02 Pulse Ox 97 04/09/25 21:02 O2 Del Method Nasal Cannula 04/09/25 19:57 O2 Flow Rate 3 04/09/25 19:57 04/09/25 04/09/25 04/09/25 06:59 14:59 22:59 Intake Total 1465 / 3305 1616.667 / 1616.667 113.250 / 1729.917 Output Total 1000 / 2000 4450 / 4450 Balance 465 / 1305 1616.667 / 1616.667 -4336.750 / -2720.083 Weight last 48 hrs Weight 138.062 kg Weight 137.711 kg Physical Exam Narrative: General well-developed morbidly obese male tachycardic. Skin is diaphoretic CV tachycardic regular rhythm no loud murmur Lungs good air movement in the right lung field diminished in the left base but still present no crackles He has left lower extremity amputation right lower extremity no edema Urinary Catheter Management: Constantino: Cath Placed During This Visit: no Reason for Continuing Indwelling Catheter: Accurate Measurement of Urinary Output in Critically Ill Patients Data 04/09/25 03:04 04/09/25 03:04 Micro: Microbiology 04/08/25 13:02 Blood Culture - Preliminary Blood NEGATIVE TO DATE 04/08/25 13:00 Blood Culture - Preliminary Blood NEGATIVE TO DATE A&P Assessment and plan 1. Chest pain: Resolved with rate control and nitroglycerin. For next episode will give GI cocktail pantoprazole held for recent concerns of C. difficile 2. ESBL (extended spectrum beta-lactamase) producing bacteria infection: Continue meropenem 3. Septic shock: Patient initially admitted to the ICU. He was placed on Levophed. The patient responded well to fluid hydration and antibiotics. The subsequent morning Levophed was discontinued on 04/06/2025. Patient has E. coli in the urine and blood. Resolved resume diltiazem CD and metoprolol for heart rate control 4. Atrial fibrillation with RVR: Rate control meds resumed. Continue on amiodarone drip additional dose of metoprolol was given. 5. Catheter-associated urinary tract infection: Patient has a chronic Constantino catheter. I see that he takes Flomax twice daily. I have that on hold I am not sure if that is indicated with a Constantino catheter 6. Systolic congestive heart failure: Patient's heart failure medications are on hold due to sepsis hypotension. Patient's home med of Bumex 3 mg twice a day held. I have just resumed metoprolol 100 mg twice daily and Cardizem 180 mg daily which had been on hold due to hypotension and sepsis PDMP PDMP Reviewed: Not Reviewed Attestations Medical Necessity Statement*: Patient margaret hospitalized in the CSU and will require greater than 2 midnights in hospital Coding Level of Care Code Acute Code for [facility] Diagnoses Chest pain R07.9 ESBL (extended spectrum beta-lactamase) producing bacteria infection A49.9; Z16.12 Septic shock A41.9; R65.21 Atrial fibrillation with RVR I48.91 Catheter-associated urinary tract infection T83.511A; N39.0 Systolic congestive heart failure I50.23 Heart failure chronicity: acute on chronic Time Spent (min) 30 Comment [id number]
[2025-04-09] MEDS: artificial tears Op Oint 3.5 gm 1 APPLIC EYE-BOTH (22:17)
[2025-04-10] VITALS (39 sets, daily range): BP systolic 112–151; BP diastolic 60–93; PULSE 82–117; RESP 19–28; TEMP 36.6–37.6; O2SAT 93–100; BMI 40.4
[2025-04-10 02:04] LABS: Coronavirus 229E,HKU1,NL63,OC4 Not Detected (NOT DETECT); Parainfluenza Virus Type 1 Not Detected (NOT DETECT); Parainfluenza Virus Type 2 Not Detected (NOT DETECT); Parainfluenza Virus Type 3 Not Detected (NOT DETECT); Parainfluenza Virus Type 4 Not Detected (NOT DETECT); SARS-COV-2 Not Detected (NOT DETECT)
--- NOTE | 2025-04-10 03:09 | PC.NURSE ---
2004- RT at bedside doing treatment and notified nurse that patient is sweating. This nurse turn patients temp which was 100.3. Patietn also complaining of 8/10 CP described as pressure, SOB, back pain, and mild nausea. Patient is tachypneic with very diminished left lungs sounds. Patient is also tachy in the 120's despite amio being on for over an hour. Dr. Stark notified and MD to place orders. Order were placed for metoprolol and diltizem to start 04/09 at 0500. This nurse verified orders and per Dr. Stark give now, nurse to adjust orders. 2219- Patient received previously ordered meds. Patient is now complaining of 10/10 chest pressire BP 171/95 HR in the 120's. EKG and CXR obtained. Patient then became diaphoretic temp 99.3F. Dr. Stark notified, MD to come to bedside. Received orders to give 5 mg IVP metoprolol. Patient was given ordered sublingual nitro with complete relief of chest pressure. Per MD hold GI cockail and can give if patient has CP again. HR is now in 90's and patient CP free.
[2025-04-10 04:24] LABS: Hematocrit 27.5 % (37-53); Hemoglobin 8.40 g/dL (11.27-16.99); Mean Corpuscular HGB Conc 30.5 g/dL (30-55); Mean Corpuscular Hemoglobin 24.7 pg (27-33); Mean Corpuscular Volume 80.9 fl (82-101); Nucleated Red Blood Cells % 0 %; Platelet Count 123 10^3/cmm (157-399); Red Blood Count 3.40 10^6/uL (3.85-5.65); White Blood Count 9.81 10^3/uL (3.29-11.43)
[2025-04-10 04:52] LABS: Magnesium 1.8 mg/dL (1.7-2.3)
[2025-04-10 05:05] LABS: Alanine Aminotransferase 64 U/L (0-41); Albumin Level 2.9 g/dL (3.5-5.2); Alkaline Phosphatase 101 U/L (40-130); Anion Gap 15.6 (5-19); Aspartate Amino Transferase 77 U/L (0-40); Blood Urea Nitrogen 19 mg/dL (8-23); Calcium 9.0 mg/dL (8.5-10.5); Carbon Dioxide 19 mmol/L (22-29); Chloride 108 mmol/L (98-107); Globulin 3.3 g/dL (1.3-4.6); Glucose 144 mg/dL (65-115); Osmolality Calculated 293 mOsm/kg (285-295); Potassium 3.6 mmol/L (3.5-5.1); Sodium 139 mmol/L (136-145); Total Protein 6.2 g/dL (6.6-8.7)
[2025-04-10] MEDS: multivitamin therapeutic Tablet 1 TAB PO (06:36)
[2025-04-10] MEDS: meropenem 1,000 mg SDV 1000 MG IVP ×3 (06:36→21:42)
[2025-04-10] MEDS: bumetanide 0.25 mg/mL SDV 4 mL 1 MG IVP (06:37)
[2025-04-10] MEDS: fluticasone nasal spray 16gm Btl 1 SPRAY INTRANASAL ×2 (06:39→17:01)
[2025-04-10] MEDS: insulin glargine 100 units/1 mL 10 UNIT SUBCUT (06:39)
[2025-04-10] MEDS: bumetanide 0.25 mg/mL SDV 4 mL 2 MG IVP ×2 (07:57→17:00)
--- NOTE | 2025-04-10 11:13 | P.PN_ITS ---
Subjective 2 Subjective: No acute events overnight. HR better controlled after starting home med. States breathing better than yesterday. Saturationg more than 95%. Tmax 100.4 in last 24 hr. denies any chest pain, nausea or vomiting. Medications: Reviewed: Yes Vitals/I&O/Wt Last Vital Signs Temp 97.9 F 04/10/25 07:49 Pulse 101 H 04/10/25 08:28 Resp 20 H 04/10/25 08:20 BP 113/67 04/10/25 07:49 Pulse Ox 98 04/10/25 08:20 O2 Del Method Nasal Cannula 04/10/25 08:20 O2 Flow Rate 3 04/10/25 08:20 04/09/25 04/10/25 04/10/25 22:59 06:59 14:59 Intake Total 142.500 / 1759.167 228.311 / 1987.478 120 / 120 Output Total 5300 / 5300 700 / 6000 1450 / 1450 Balance -5157.500 / -3540.833 -471.689 / -4012.522 -1330 / -1330 Weight last 48 hrs Weight 135.307 kg Weight 138.062 kg Physical Exam 2 Narrative: Alert and oriented. He appears older than his stated age he is morbidly obese with a left AKA. No significant distress today Heart is irregularly irregular normal S1-S2 without murmurs clicks gallops or rubs Lungs clear to auscultation without wheezes rales or rhonchi Abdomen soft morbidly obese with large pannus non-tender normal active bowel sounds Right lower extremity thin with atrophy Unable to assess left stump in current position, it is underneath his abdominal pannus Urinary Catheter Management: Constantino: Cath Placed During This Visit: no Reason for Continuing Indwelling Catheter: Acute Urinary Retention or Obstruction Data 04/10/25 03:48 04/10/25 03:48 Micro: Microbiology 04/08/25 13:02 Blood Culture - Preliminary Blood NEGATIVE TO DATE 04/08/25 13:00 Blood Culture - Preliminary Blood NEGATIVE TO DATE A&P Assessment and plan 1. ESBL (extended spectrum beta-lactamase) producing bacteria infection: 2. Sepsis: 3. Atrial fibrillation with RVR: 4. Catheter-associated urinary tract infection: Patient has a chronic Constantino catheter. I see that he takes Flomax twice daily. I have that on hold I am not sure if that is indicated with a Constantino catheter 5. Systolic congestive heart failure: Patient's heart failure medications are on hold due to sepsis hypotension. Patient's home med of Bumex 3 mg twice a day, metoprolol 100 mg twice daily and Cardizem 180 mg daily are all on hold Plan to finish last bag of fluids and hopefully start either metoprolol or Cardizem this evening 6. Septic shock: Patient initially admitted to the ICU. He was placed on Levophed. The patient responded well to fluid hydration and antibiotics. The subsequent morning Levophed was discontinued on 04/06/2025. Patient has E. coli in the urine and blood. 7. Chronic indwelling Constantino catheter: 8. Morbid obesity: 9. Open wound of left lower quadrant of abdominal wall without penetration into peritoneal cavity: Discussed with RN the findings on exam. Patient has approximately 4 wounds in the intertrigo space in the pannus area. These have been cleansed and dressed. Patient has a wound in the right groin addressed as well. He has a stasis ulcer on his buttocks and a right hip pressure ulcer. All skin abnormalities have been addressed with wound care. 10. Intertriginous dermatitis associated with moisture: As above 11. Diabetes type 2, controlled: Patient is on a drastically reduced dose of his insulin. Blood sugars are running 150-300 yesterday morning. Will increase our base dose of Lantus and likely a sliding scale 12. group home (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 of anticoagulants: Heparin subcu was stopped and patient was placed on his home dose of Eliquis 13. Obstructive sleep apnea syndrome: Patient wearing CPAP at night 14. Essential hypertension: 15. History of left above knee amputation: 16. Rhinovirus infection: Plan: Plan for today: Blood culture from 04/06 positive for ESBL E. coli. Repeat Bcx from 04/08 so far negative. Appreciate ID recs. Mid line in Place. Rhinovirus positive. Isolation precaution. HR better controlled. C/w Amio mandie for now as per 24 hr protocol. C/w home dose of metoprolol. Cardizem for 30 mg QID. Monitor BP. Target MAP over 65 mmhg. Uptitrate As per BP and HR. C/w Meropenem for now. Oxygen supplementation to mantian over 88%. C/w home bipap QHS. Fluid restriction less than 1500 cc. Increase Bumex 2 mg BID. Takes 3 mg BID at home. Monitor potassium and replace accordingly keeping around 4. Full code Carb consistent diet Eliquis will be sufficient for DVT prophylaxis Famotidine for PUD prophylaxis DC plan: Plan to dc back to SNF in AM if HR remain stable. PDMP PDMP Reviewed: Not Reviewed Attestations 2 Medical Necessity Statement*: Requires further hospitalization for management of ESBL bacteremia, A-fib with RVR, congestive heart failure exacerberation, Rhinovirus positive Diagnoses ESBL (extended spectrum beta-lactamase) producing bacteria infection A49.9; Z16.12 Sepsis A41.9 Sepsis acute organ dysfunction status: without acute organ dysfunction Sepsis type: sepsis due to unspecified organism Atrial fibrillation with RVR I48.91 Catheter-associated urinary tract infection T83.511A; N39.0 Systolic congestive heart failure I50.23 Heart failure chronicity: acute on chronic Septic shock A41.9; R65.21 Chronic indwelling Constantino catheter Z97.8 Morbid obesity E66.01 Open wound of left lower quadrant of abdominal wall without penetration into peritoneal cavity S31.104A Intertriginous dermatitis associated with moisture L30.4 Diabetes type 2, controlled E11.9 group home (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 of anticoagulants Z79.01 Obstructive sleep apnea syndrome G47.33 Sleep apnea type: obstructive Essential hypertension I10 History of left above knee amputation Z89.612 Rhinovirus infection B34.8
[2025-04-10] MEDS: AMIODARONE HCL/D5W 900 MG/500 ML BAG 16.67 MG IV (12:40)
--- NOTE | 2025-04-10 16:20 | P.PN_ITS ---
Subjective 2 Subjective: ID progress note Last fever T max 100.4F overnight. Enterovirus/rhinovirus + on respiratory viral panel. No leukocytosis Medications: Reviewed: Yes Vitals/I&O/Wt Last Vital Signs Temp 97.9 F 04/10/25 07:49 Pulse 83 04/10/25 13:50 Resp 20 H 04/10/25 13:50 BP 125/69 04/10/25 12:00 Pulse Ox 100 04/10/25 13:50 O2 Del Method Nasal Cannula 04/10/25 13:50 O2 Flow Rate 3 04/10/25 13:50 04/10/25 04/10/25 04/10/25 06:59 14:59 22:59 Intake Total 228.311 / 1987.478 300.314 / 300.314 Output Total 700 / 6000 2099 / 2099 Balance -471.689 / -4012.522 -1799.686 / -1799.686 Weight last 48 hrs Weight 135.307 kg Weight 138.062 kg Physical Exam 2 Narrative: General: No acute distress, AO x3 HEENT: PERRLA, pupils bilaterally equal and reactive, pallors not present Chest: crackles to auscultation B/L CVS: S1-S2 regular, no murmurs, no tachycardia, no gallops, no rubs Abdomen: Soft, large pannus, dry skin skin folds, no intertrigo Extremities: s/p left AKA, stage 2 skin changes over base of scrotum and back Urinary Catheter Management: Constantino: Cath Placed During This Visit: no Reason for Continuing Indwelling Catheter: Acute Urinary Retention or Obstruction Data 04/10/25 03:48 04/10/25 15:50 Micro: Microbiology 04/08/25 13:02 Blood Culture - Preliminary Blood NEGATIVE TO DATE 04/08/25 13:00 Blood Culture - Preliminary Blood NEGATIVE TO DATE A&P Assessment and plan 1. ESBL (extended spectrum beta-lactamase) producing bacteria infection: 2. Complicated UTI (urinary tract infection): Plan: 59M with chronic Constantino catheter, /o recurrent UTI admitted with ESBL E. coli septicemia blood cx + 04/06, currently pending from 04/08 URine cx and blood cx with ESBL E. coli Continue meropenem 1g iv every 8 hrs as currently running Await fever curve improvement, clearance of blood cx Diarrhea appears to have resolved, no BM today. Will follow 04/10/25: T max 100.4F overnight. Enterovirus +, which is likely the cause of low grade fever given otherwise no leukocytosis and clinical improvement. Recommend to obtain CXR. Recommend discharge with 14 days of iv ertapenem 1 g iv every 24 hrs for complicated ESBL E. coli UTI with septicemia. Thereafter can attempt chronic suppression with fosfomycin 3 g po every 3rd day given h/o multiple UTIs with enterobacteriacea and Enterococcus PDMP PDMP Reviewed: Not Reviewed Attestations 2 Medical Necessity Statement*: per primary note Coding Level of Care Code Acute Code for Chg Fwd Moderate MDM includes number and complexity of problems actively addressed during encounter, amount and/or complexity of data reviewed/ordered and described risk of complication, morbidity or mortality of management as documented Diagnoses ESBL (extended spectrum beta-lactamase) producing bacteria infection A49.9; Z16.12 Complicated UTI (urinary tract infection) N39.0
--- NOTE | 2025-04-10 16:21 | XRR_ITS ---
PROCEDURE INFORMATION: Exam: XR Chest Exam date and time: 04/10/2025 5:26 PM Age: 59 years old Clinical indication: Shortness of breath; Additional info: Rhinovirus TECHNIQUE: Imaging protocol: Radiologic exam of the chest. Views: 1 view. COMPARISON: CR (CHEST, ) 04/09/2025 9:32 PM FINDINGS: Lungs: There is moderate left lung and mild right lung airspace disease which may represent volume loss and/or pneumonitis. Pleural spaces: There are no significant pleural effusions. Heart/Mediastinum: Cardiomegaly again noted. Bones/joints: Chronic appearing right-sided rib fractures are noted. XR/XR chest 1V portable [id number] IMPRESSION: No significant change from prior study.
[2025-04-10 16:46] LABS: Anion Gap 15.1 (5-19); Blood Urea Nitrogen 23 mg/dL (8-23); Calcium 9.1 mg/dL (8.5-10.5); Carbon Dioxide 20 mmol/L (22-29); Chloride 109 mmol/L (98-107); Glucose 109 mg/dL (65-115); Osmolality Calculated 294 mOsm/kg (285-295); Potassium 4.1 mmol/L (3.5-5.1); Sodium 140 mmol/L (136-145)
[2025-04-10] MEDS: ATORVASTATIN 20 MG TABLET PO (21:41)
[2025-04-10] MEDS: artificial tears Op Oint 3.5 gm 1 APPLIC EYE-BOTH (21:41)
[2025-04-11 02:28] VITALS: PULSE 96; RESP 20; O2SAT 95
[2025-04-11 03:16] VITALS: BP 129/81; PULSE 106; RESP 23; O2SAT 95
[2025-04-11] MEDS: multivitamin therapeutic Tablet 1 TAB PO (04:45)
[2025-04-11] MEDS: artificial tears Op Soln 15 mL Btl 1 DROP EYE-BOTH (04:46)
[2025-04-11] MEDS: fluticasone nasal spray 16gm Btl 1 SPRAY INTRANASAL (04:46)
[2025-04-11] MEDS: insulin glargine 100 units/1 mL 10 UNIT SUBCUT (04:46)
[2025-04-11 05:19] VITALS: BMI 38.9
[2025-04-11 05:39] LABS: Hematocrit 29.7 % (37-53); Hemoglobin 9.30 g/dL (11.27-16.99); Mean Corpuscular HGB Conc 31.3 g/dL (30-55); Mean Corpuscular Hemoglobin 24.7 pg (27-33); Mean Corpuscular Volume 79.0 fl (82-101); Nucleated Red Blood Cells % 0 %; Platelet Count 144 10^3/cmm (157-399); Red Blood Count 3.76 10^6/uL (3.85-5.65); White Blood Count 9.86 10^3/uL (3.29-11.43)
[2025-04-11 05:43] LABS: Slide Review Slide Review Perform
[2025-04-11 05:50] LABS: Alanine Aminotransferase 63 U/L (0-41); Albumin Level 2.9 g/dL (3.5-5.2); Alkaline Phosphatase 110 U/L (40-130); Anion Gap 15.8 (5-19); Aspartate Amino Transferase 74 U/L (0-40); Blood Urea Nitrogen 25 mg/dL (8-23); Calcium 9.3 mg/dL (8.5-10.5); Carbon Dioxide 20 mmol/L (22-29); Chloride 107 mmol/L (98-107); Globulin 3.7 g/dL (1.3-4.6); Glucose 152 mg/dL (65-115); Magnesium 1.8 mg/dL (1.7-2.3); Osmolality Calculated 295 mOsm/kg (285-295); Potassium 3.8 mmol/L (3.5-5.1); Sodium 139 mmol/L (136-145); Total Protein 6.6 g/dL (6.6-8.7)
[2025-04-11] MEDS: bumetanide 0.25 mg/mL SDV 4 mL 2 MG IVP (06:20)
[2025-04-11] MEDS: meropenem 1,000 mg SDV 1000 MG IVP (06:20)
[2025-04-11 07:38] VITALS: PULSE 115; RESP 16; O2SAT 98
--- NOTE | 2025-04-11 07:58 | PM.DCS ---
Discharge Providers Date of Admission: 04/06/25 08:02 Date of Discharge: April 11, 2025 Attending Provider at Admission: Gayle Roland MD Attending Provider at Discharge: Yo Barrera MD Consults: ID Primary Care Provider: Chris Parker DO Diagnoses at Discharge Discharge Diagnosis 1. ESBL (extended spectrum beta-lactamase) producing bacteria infection: 2. Complicated UTI (urinary tract infection): Reason for Visit Reason for Visit: Fever Brief History: Per HPI 59-year-old male with a past medical history significant for pancytopenia, left above-knee amputation, chronic indwelling Constantino catheter, hypertension, diabetes, atrial fibrillation, morbid obesity, pancytopenia, chronic granulomatous disease, chronic ulcerations to the left hip and suprapubic region, Presented to the hospital with complaints of fever body aches and diarrhea that had been going on for 2 days. The patient is currently confused, history has been obtained from ER records. Patient is able to tell me his name but thinks that he is in the shelter and he does not know why he is in the hospital. He does not know the year. He was hypertensive when he came in however blood pressure got better with IV fluids, now getting hypotensive again. Starting Levophed on him. We do not know his baseline mental status. Will be calling the shelter to obtain his baseline mental status as well since he is confused ROS, unable to obtain given his confusion Per ER records, he had a temp of 28.6, was bundled in multiple blankets on arrival. A fever of 101. Was mildly hypotensive and did not have any shortness of breath or chest pain at that time Hospital Course Hospital Course Patient was admitted to the hospital for further evaluation and management of septic shock in setting of complicated UTI, cellulitis and pannus wound infection. Started on broad-spectrum IV antibiotics, vasopressors, IV fluids. His antihypertensives were discontinued on admission. He showed gradual improvement and was later transferred out of ICU once he did not require any further vasopressors. During hospitalization he was found to have blood culture and urine culture positive for ESBL E. coli. Repeat blood culture from 04/08 is so far negative. ID was consulted for IV antibiotics. He continued to spike low-grade fever and was later found to be positive for rhinovirus as well. His hospitalization was further complicated by him developing congestive heart failure and A-fib with RVR for which he was started on IV diuresis and restarted on his home rate limiting medication which he tolerated well. He is been discharged back to SNF on IV antibiotics for 14 more days through midline with continued IV diuresis, antiarrhythmics and rate limiting medications. Physical Exam Narrative: Alert and oriented. He appears older than his stated age he is morbidly obese with a left AKA. No significant distress today Heart is irregularly irregular normal S1-S2 without murmurs clicks gallops or rubs Lungs clear to auscultation without wheezes rales or rhonchi Abdomen soft morbidly obese with large pannus non-tender normal active bowel sounds Right lower extremity thin with atrophy Unable to assess left stump in current position, it is underneath his abdominal pannus Urinary Catheter Management: Constantino: Cath Placed During This Visit: no Reason for Continuing Indwelling Catheter: Chronic Indwelling Urinary Catheter on Admission Discharge Data Studies Completed and Pending Completed Studies During Hospitalization Category Date Time Status CT chest abdpel w/*[id number] Stat Cat Scan 04/06/25 07:[address] head wo con* [id number] Routine Cat Scan 04/06/25 15:28 Completed XR chest 1V portable [id number] Routine Exams 04/09/25 20:10 Completed XR chest 1V portable [id number] Routine Exams 04/10/25 16:21 Completed XR chest 1V portable [id number] Stat Exams 04/06/25 05:21 Completed Pending at discharge Category Date Time Status Blood Culture Stat Lab 04/08/25 13:00 Results C.Diff PCR (Lab) Stat Lab 04/06/25 14:54 Uncollected Fosfomycin Susceptibility Test Stat Lab 04/09/25 12:54 Ordered MAG [Magnesium] AM LABS Lab 04/12/25 04:00 Ordered MRSA PCR OZH (swab) Routine Lab 04/11/25 06:15 Received Sputum Culture and Gram Stain Stat Lab 04/06/25 13:06 Uncollected Radiology Impressions Chest/Abdomen/Pelvis CT 04/06/25 07:24 IMPRESSION: Overall exam is limited by patient's difficulty positioning and condition with beam hardening artifact 1. Residual trace LEFT pleural fluid with subsegmental atelectasis LEFT lower lobe. No new pulmonary infiltrates. 2. No hydronephrosis in either kidney. 3. Splenomegaly with mild hepatomegaly. 4. Cholelithiasis. Gallbladder is partially contracted. 5. Constantino catheter. 6. Sigmoid diverticulosis. 7. No other significant changes since the prior studies. Head CT 04/06/25 15:28 IMPRESSION: No acute intracranial abnormality. Chest X-Ray 04/10/25 16:21 IMPRESSION: No significant change from prior study. Microbiology 04/06/25 07:07 Urine,Clean Catch Urine Culture - Final Escherichia coli esbl 04/08/25 13:02 Blood Blood Culture - Preliminary NEGATIVE TO DATE 04/08/25 13:00 Blood Blood Culture - Preliminary NEGATIVE TO DATE 04/06/25 06:15 Blood Blood Culture - Final Escherichia coli esbl 04/06/25 06:06 Blood Blood Culture - Final Escherichia coli esbl Laboratory Results WBC 9.86 10^3/uL (3.29-11.43) 04/11/25 05:05 RBC 3.76 10^6/uL (3.85-5.65) L 04/11/25 05:05 Hgb 9.30 g/dL (11.27-16.99) L 04/11/25 05:05 Hct 29.7 % (37-53) L 04/11/25 05:05 MCV 79.0 fl (82-101) L 04/11/25 05:05 MCH 24.7 pg (27-33) L 04/11/25 05:05 MCHC 31.3 g/dL (30-55) 04/11/25 05:05 RDW 22.4 % (12.1-15.1) H 04/11/25 05:05 Plt Count 144 10^3/cmm (157-399) L 04/11/25 05:05 MPV 11.2 fL (7.4-10.4) H 04/11/25 05:05 Neut % (Auto) 72.8 % 04/11/25 05:05 Lymph % (Auto) 11.7 % 04/11/25 05:05 [place] % (Auto) 10.5 % 04/11/25 05:05 Eos % (Auto) 3.0 % 04/11/25 05:05 Baso % (Auto) 0.4 % 04/11/25 05:05 Neut # (Auto) 7.17 10^3/uL (1.8-7.7) 04/11/25 05:05 Lymph # (Auto) 1.2 10^3/uL (0.8-4.8) 04/11/25 05:05 [place] # (Auto) 1.0 10^3/uL (0.2-0.9) H 04/11/25 05:05 Eos # (Auto) 0.3 10^3/uL (0.0-0.8) 04/11/25 05:05 Baso # (Auto) 0.0 10^3/uL (0.0-0.1) 04/11/25 05:05 Nucleated RBC % (auto) 0 % 04/11/25 05:05 Nucleated RBCs # 0.0 /100WBC 04/11/25 05:05 Specimen Type Arterial 04/06/25 15:40 Sample Site Brachial, left 04/06/25 15:40 ABG pH 7.46 (7.35-7.45) H 04/06/25 15:40 ABG pCO2 29.4 mmHg (35-45) L 04/06/25 15:40 ABG pO2 67.4 mmHg (80.0-100.0) L 04/06/25 15:40 ABG PO2/FiO2 Ratio 210 04/06/25 15:40 ABG HCO3 21.1 mmol/L (22-26) L 04/06/25 15:40 ABG O2 Saturation 94.4 04/06/25 15:40 ABG Base Excess -2.1 mmol/L (-2.0-2.0) L 04/06/25 15:40 Dio Test N/a 04/06/25 15:40 A-a O2 Gradient 15.9 mmHg (5-10) H 04/06/25 15:40 Hematocrit 28.7 % (42-52) L 04/06/25 15:40 Hgb O2 Saturation 92.1 % (95-100) L 04/06/25 15:40 Carboxyhemoglobin 1.3 %THgb (0.4-20.1) 04/06/25 15:40 Methemoglobin 1.2 % (0.4-1.5) 04/06/25 15:40 Total Hemoglobin 9.3 g/dL (14-18) L 04/06/25 15:40 Sodium 137.0 mmol/L (131-143) 04/06/25 15:40 Potassium 3.6 mmol/L (3.5-5.0) 04/06/25 15:40 Glucose 207.0 mg/dL (70-115) H 04/06/25 15:40 Ionized Calcium 1.2 mmol/L (1.1-1.4) 04/06/25 15:40 O2 Delivery Device Nc 04/06/25 15:40 O2 Liters/Min 3.0 % 04/06/25 15:40 FiO2 32.0 % 04/06/25 15:40 Health Program Specialist ID Gd 04/06/25 15:40 Sodium 139 mmol/L (136-145) 04/11/25 05:05 Potassium 3.8 mmol/L (3.5-5.1) 04/11/25 05:05 Chloride 107 mmol/L (98-107) 04/11/25 05:05 Carbon Dioxide 20 mmol/L (22-29) L 04/11/25 05:05 Anion Gap 15.8 (5-19) 04/11/25 05:05 BUN 25 mg/dL (8-23) H 04/11/25 05:05 Creatinine 0.9 mg/dL (0.7-1.2) 04/11/25 05:05 GFR Calculation 85.8 mL/min (90-130) L 04/11/25 05:05 Glucose 152 mg/dL (65-115) H 04/11/25 05:05 POC Glucose 168 mg/dL (70-110) H 04/11/25 06:11 Lactic Acid 3.1 mmol/L (0.5-2.2) H 04/06/25 05:10 Lactic Acid (Sepsis) 2.0 mmol/L (0.5-2.2) 04/06/25 08:04 Lactate 3.2 mmol/L (0.5-2.2) H 04/06/25 13:24 Calculated Osmolality 295 mOsm/kg (285-295) 04/11/25 05:05 Calcium 9.3 mg/dL (8.5-10.5) 04/11/25 05:05 Magnesium 1.8 mg/dL (1.7-2.3) 04/11/25 05:05 Direct Bilirubin 0.88 mg/dL (0.00-0.30) H 04/07/25 04:13 Total Bilirubin 2.6 mg/dL (0.15-1.2) H 04/11/25 05:05 AST 74 U/L (0-40) H 04/11/25 05:05 ALT 63 U/L (0-41) H 04/11/25 05:05 Alkaline Phosphatase 110 U/L (40-130) 04/11/25 05:05 Total Protein 6.6 g/dL (6.6-8.7) 04/11/25 05:05 Albumin 2.9 g/dL (3.5-5.2) L 04/11/25 05:05 Globulin 3.7 g/dL (1.3-4.6) 04/11/25 05:05 Folate > 20.0 ng/mL (4.5-32.2) 04/10/25 03:48 Procalcitonin 0.80 ng/mL (0-0.5) H 04/09/25 14:10 Urine Color Yellow (Yellow) 04/06/25 07:07 Urine Appearance Turbid (CLEAR) A 04/06/25 07:07 Urine pH 5.0 (5-7) 04/06/25 07:07 Ur Specific [place] 1.014 (1.005-1.030) 04/06/25 07:07 Urine Protein 1+ (Negative) A 04/06/25 07:07 Urine Glucose (UA) Negative (Normal) 04/06/25 07:07 Urine Ketones Negative (Negative) 04/06/25 07:07 Urine Blood 2+ (Negative) A 04/06/25 07:07 Urine Nitrate Negative (Negative) 04/06/25 07:07 Urine Bilirubin Negative (Negative) 04/06/25 07:07 Urine Urobilinogen 0.2 mg/dL (Negative) 04/06/25 07:07 Ur Leukocyte Esterase 3+ (Negative) A 04/06/25 07:07 Urine RBC 0-2 /hpf (0-2) 04/06/25 07:07 Urine WBC >100 /hpf (0-5) H 04/06/25 07:07 Ur Squamous Epith Cells 0-5 /hpf (0-5) 04/06/25 07:07 Amorphous Sediment Not Reportable 04/06/25 07:07 Urine Bacteria 4+ /hpf (NONE) H 04/06/25 07:07 Hyaline Casts 21.08 /lpf 12/05/25 07:07 Vancomycin Trough 10.3 ug/mL (10-15) 04/09/25 12:51 Adenovirus (PCR) Not detected (NOT DETECT) 04/10/25 00:03 C. pneumoniae DNA (PCR) Not detected (NOT DETECT) 04/10/25 00:03 Coronavirus 229E (PCR) Not detected (NOT DETECT) 04/10/25 00:03 Human Metapneumovir PCR Not detected (NOT DETECT) 04/10/25 00:03 Influenza A (H1) PCR Not detected (NOT DETECT) 04/10/25 00:03 Influenza A (PCR) Negative (Negative) 04/06/25 06:40 Influ A (H1/09) PCR Not detected (NOT DETECT) 04/10/25 00:03 Influenza A (H3) PCR Not detected (NOT DETECT) 04/10/25 00:03 Influenza Type A (PCR) Not detected (NOT DETECT) 04/10/25 00:03 Influenza Type B (PCR) Not detected (NOT DETECT) 04/10/25 00:03 M. pneumoniae (PCR) Not detected (NOT DETECT) 04/10/25 00:03 Parainfluenza 1 (PCR) Not detected (NOT DETECT) 04/10/25 00:03 Parainfluenza 2 (PCR) Not detected (NOT DETECT) 04/10/25 00:03 Parainfluenza 3 (PCR) Not detected (NOT DETECT) 04/10/25 00:03 Parainfluenza 4 (PCR) Not detected (NOT DETECT) 04/10/25 00:03 RSV (PCR) Negative (Negative) 04/06/25 06:40 RSV Type A (PCR) Not detected (NOT DETECT) 04/10/25 00:03 RSV Type B (PCR) Not detected (NOT DETECT) 04/10/25 00:03 Entero/Rhino (PCR) Detected (NOT DETECT) A 04/10/25 00:03 SARS-CoV-2 (PCR) Not detected (NOT DETECT) 04/10/25 00:03 Vitals Last Vital Signs Temp 98.1 F 04/10/25 19:32 Pulse 115 H 04/11/25 07:38 Resp 16 04/11/25 07:38 BP 129/81 04/11/25 03:16 Pulse Ox 98 04/11/25 07:38 O2 Del Method Room Air 04/11/25 07:38 O2 Flow Rate 2 04/10/25 20:58 Discharge Plan Discharge Patient Disposition: Home Condition: Stable Prescriptions: New fosfomycin tromethamine 3 gram packet 3 g PO Q3D 30 Days Qty: 10 1RF Continued montelukast 10 mg tablet 10 mg PO BEDTIME allopurinol 300 mg tablet 300 mg PO DAILY cholecalciferol (vitamin D3) 1,000 unit capsule 1,000 unit PO DAILY tamsulosin [Flomax] 0.4 mg capsule 0.4 mg PO BID magnesium hydroxide [Milk of Magnesia] 400 mg/5 mL suspension 30 ml PO .Q72H PRN (Reason: Constipation) Fleet Enema 19-7 gram/118 mL enema 118 ml ND DAILY PRN (Reason: Constipation) metoclopramide HCl [Reglan] 10 mg tablet 10 mg PO QID Niva-Plus 27 mg iron- 1 mg tablet 1 tab PO DAILY metoprolol tartrate 100 mg tablet 100 mg PO BID acetaminophen 500 mg capsule 500 mg PO Q6H PRN (Reason: pain or fever) Brezideelii Aerosphere 160-9-4.8 mcg/actuation HFA aerosol inhaler 2 inh inhalation BID omeprazole 40 mg capsule,delayed release(DR/EC) 40 mg PO BID fluticasone propionate 50 mcg/actuation spray,suspension 1 spray INTRANASAL BID Qty: 15.8 6RF pregabalin 50 mg capsule 50 mg PO TID Qty: 90 5RF bumetanide 1 mg tablet 3 mg PO BID Rx Instructions: take one extra tablet as needed for weight gain of 2 pounds in a day or 5 pounds in a week Eliquis 5 mg tablet 5 mg PO BID Qty: 180 0RF Gold Castillo Medicated Body 0.8 % Powder See Rx Instructions .ROUTE .COMPLEX Rx Instructions: Cleanse abdominal folds ensuring completely dry then apply to entire abdominal folds and under arms every shift. ondansetron 8 mg tablet,disintegrating 8 mg PO Q6H PRN (Reason: Nausea And Vomiting) potassium chloride 20 mEq tablet,ER particles/crystals 20 meq PO DAILY albuterol sulfate 2.5 mg /3 mL (0.083 %) solution for nebulization 2.5 mg inhalation Q6H PRN (Reason: Dyspnea) brinzolamide 1 % drops,suspension 1 drp ophthalmic (eye) BID latanoprost 0.005 % drops 1 drp ophthalmic (eye) BEDTIME atorvastatin 20 mg tablet 20 mg PO DAILY triamcinolone acetonide 0.1 % cream 1 applic TOPICAL BID PRN (Reason: skin irritation on ears) diltiazem HCl [Cardizem CD] 180 mg capsule,extended release 24hr 180 mg PO DAILY Qty: 30 0RF bisacodyl 5 mg Tablet 10 mg PO DAILY PRN (Reason: Constipation) (DME) Ocusoft Eyelid Cleansing Pads Pad MISCELLANEOUS Ozempic 1 mg/dose (4 mg/3 mL) pen injector 1 mg SUBCUT Q7D Rx Instructions: Wednesday GenTeal Tears Severe(petrolat) 94-3 % ointment 1 applic ophthalmic (eye) BEDTIME lidocaine [Lidocaine Pain Relief] 4 % adhesive patch,medicated 1 patch TOPICAL BID MDD on in am/off in pm (DME) Ocusoft Eyelid Cleansing Pads Pad MISCELLANEOUS Rx Instructions: Use 1 pad on each eyelid once daily lubiprostone 8 mcg capsule 8 mcg PO BID Ozempic 2 mg/dose (8 mg/3 mL) pen injector 2 mg SUBCUT Q7D Rx Instructions: Wednesday' hydrocodone-acetaminophen 5-325 mg tablet 1 tab PO .Q8H PRN (Reason: pain) Changed amiodarone 400 mg tablet 200 mg PO QAM Qty: 30 0RF insulin aspart U-100 100 unit/mL (3 mL) insulin pen 10 unit SUBCUT TID Qty: 15 0RF Protocol: Insulin Corrective High-Dose Regimen Condition: Fingerstick Blood Glucose Dose/Route: Insulin Units Condition: 141-180 mg/dl Dose/Route: 2 units/SQ Condition: 181-220 mg/dl Dose/Route: 4 units/SQ Condition: 221-260 mg/dl Dose/Route: 6units/SQ Condition: 261-300 mg/dl Dose/Route: 8 units/SQ Condition: 301-350 mg/dl Dose/Route: 10 units/SQ Condition: 351-400 mg/dl Dose/Route: 12 units/SQ Condition: greater than 400 mg/dl Dose/Route: 14units/SQ Rx Instructions: with meals insulin degludec [Tresiba FlexTouch U-100] 100 unit/mL (3 mL) insulin pen 10 unit SUBCUT BEDTIME Qty: 15 0RF Discontinued spironolactone 50 mg tablet 50 mg PO DAILY Aqua Ammonia Operator OK for DC: Infectious Disease Discharge Order = DC NOW: Discharge Order (Routine); Ordered 04/11/25 Ordered By: Yo Barrera Referrals: Chris Parker, [Primary Care Provider, Internal Medicine] Patient Instructions: Fosfomycin (By mouth), A-fib (Atrial Fibrillation) (DC), Urinary Tract Infection in Men (DC), Chest Pain Stoplight, Opioid Safety, Patient Portal & Neeraj Instructions Activity Restrictions/Additional Instructions: Restrict fluid intake to less than 1500 cc, salt intake to less than 2 g daily. Advised to check his weight daily at home. Is advised that weight today would be the dry weight and if body weight increases by around 5 pounds, patient is to take an extra dose of Bumex daily till body weight comes down to weight today. If not able to come down to dry body weight in 1 week, then is to call cardiology office for further recommendations. Patient was counseled in detail to take medications regularly as prescribed. Check blood pressure daily at home and Mbit pressure diary. Goal blood pressure is between 100- 140 systolics. Dose of Lantus and glargine has been changed as above. Check fasting blood sugar daily. Target fasting blood sugar is between 90-1 20. Start fosfomycin oral suppression for recurrent UTI once iv ertapenem course is completed Discharge Attestations Time Spent in Discharge Care*: greater than 30 min Specific Discharge Activities: educating patient, educating and/or supporting family/caregiver, discussing with pcp/other providers, discussing with case management manager/social workers/dc planners, documenting/other paperwork and evaluating patient/reviewing data Status at Discharge: Cognitive status at discharge: mildly impaired cognition, Behavioral status at discharge: cooperative, Functional status at discharge: other assisted ambulation, Overall status at discharge: patient is back to baseline Quality Metrics Clinical Quality Measures [ No reported AMI, CVA or VTE this stay] Coding Level of Care Code 66414 Total time (in minutes) for Discharge: 55 Diagnoses ESBL (extended spectrum beta-lactamase) producing bacteria infection A49.9; Z16.12 Complicated UTI (urinary tract infection) N39.0
[2025-04-11 08:00] VITALS: BP 132/91; PULSE 116; RESP 23; TEMP 36.7; O2SAT 97
[2025-04-11] MEDS: dilTIAZem ER (24HR) 180 mg Capsule PO (08:12)
[2025-04-11 08:19] VITALS: BP 132/91; PULSE 98; RESP 23; TEMP 36.4; O2SAT 97
[2025-04-11 11:30] LABS: MRSA PCR OZH (swab) MRSA Detected (Negative)
== END 2025-04-11 12:57 | disposition intermediate care facility (04) | DRG 698 ==
LOC: ER 06:02 → ER IP 08:02 → ICU 10:15 → MEDSURG 04-08 12:55 → CSU 04-09 14:52
PROVIDERS: Internal Medicine; Student in an Organized Health Care Education/Training Program; Admitting Provider Internal Medicine; Emergency Provider Emergency Medicine; PCP Internal Medicine; Visit Provider Student in an Organized Health Care Education/Training Program
DX: T83.511A Infection and inflammatory reaction due to indwelling urethral catheter, initial encounter (principal); A41.9 Sepsis, unspecified organism; G93.41 Metabolic encephalopathy; R65.21 Severe sepsis with septic shock; J18.9 Pneumonia, unspecified organism; N17.0 Acute kidney failure with tubular necrosis; I50.23 Acute on chronic systolic (congestive) heart failure; Z16.12 Extended spectrum beta lactamase (ESBL) resistance; I13.0 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 and chronic kidney disease with heart failure and stage 1 through stage 4 chronic kidney disease, or unspecified chronic kidney disease; J44.0 Chronic obstructive pulmonary disease with (acute) lower respiratory infection; E87.1 Hypo-osmolality and hyponatremia; E87.20 Acidosis, unspecified; N39.0 Urinary tract infection, site not specified; B96.20 Unspecified Escherichia coli [E. coli] as the cause of diseases classified elsewhere; Z89.612 Acquired absence of left leg above knee; Z96.0 Presence of urogenital implants; N18.30 Chronic kidney disease, stage 3 unspecified; E11.22 Type 2 diabetes mellitus with diabetic chronic kidney disease; I48.91 Unspecified atrial fibrillation; E66.01 Morbid (severe) obesity due to excess calories; Z68.39 Body mass index [BMI] 39.0-39.9, adult; Z88.0 Allergy status to penicillin; Z88.2 Allergy status to sulfonamides; Z79.85 Long-term (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 of injectable non-insulin antidiabetic drugs; Z79.01 Long term (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 of anticoagulants; Z79.51 Long term (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 of 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; Z79.4 Long term (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 of insulin; K21.9 Gastro-esophageal reflux disease without esophagitis; N40.0 Benign prostatic hyperplasia without lower urinary tract symptoms; E78.5 Hyperlipidemia, unspecified; G47.33 Obstructive sleep apnea (adult) (pediatric); Z82.49 Family history of ischemic heart disease and other diseases of the circulatory system; F17.220 Nicotine dependence, chewing tobacco, uncomplicated; L89.219 Pressure ulcer of right hip, unspecified stage; L89.309 Pressure ulcer of unspecified buttock, unspecified stage; R16.2 Hepatomegaly with splenomegaly, not elsewhere classified; K80.20 Calculus of gallbladder without cholecystitis without obstruction; R19.7 Diarrhea, unspecified; K57.90 Diverticulosis of intestine, part unspecified, without perforation or abscess without bleeding; D64.9 Anemia, unspecified; D69.6 Thrombocytopenia, unspecified; R74.01 Elevation of levels of liver transaminase levels; S31.104A Unspecified open wound of abdominal wall, left lower quadrant without penetration into peritoneal cavity, initial encounter; X58.XXXA Exposure to other specified factors, initial encounter; L30.8 Other specified dermatitis; B34.8 Other viral infections of unspecified site; Y73.8 Miscellaneous gastroenterology and urology devices associated with adverse incidents, not elsewhere classified
CPT/HCPCS: 36415; 36416; 36569; 36600; 51702; 70450; 71045; 71260; 74177; 80048; 80051; 80053; 80076; 80202; 81001; 82330; 82746; 82805; 82962; 83605; 83735; 84145; 85025; 87040; 87077; 87086; 87150; 87181; 87186; 87205; 87486; 87581; 87633; 87637; 93005; 94640; 96365; 96372; 96375; 99285; A4222; C1751; J0131; J0282; J0283; J0456; J0692; J0696; J1644; J1815; J2185; J3372; J3490; J7030; J7050; J7614; J7626; J7644; J8597; J9999; Q0162

== ENCOUNTER 2025-04-14 19:52 | Emergency (ER) | payer MEDICARE, MEDICAID, SELFPAY ==
--- OUTSIDE RECORDS SUMMARY | 2024-01-19 11:00 | XMS_ITS ---
Author Organization [employer] Address [address] [facility] [place] [address] Care Team Providers Care Primer Press Operator Name Role Phone EDI DILL Unavailable [phone] GAMA GARCIA Unavailable [phone] REASON FOR VISIT Cx by pts sister/ may call back to r/s-- Retention/VT Encounters Encounter Location Date Provider Diagnosis [employer], [employer] [address] [facility] [place] [address] 01/19/2024 GAMA GARCIA Plan Of Treatment Next Appt Details Provider Name:Kain Marroquin, 06/25/2025 02:00:00 PM, [address] [facility] [place], [address], Progress Notes * AMYMarciano LDOB: 4 (59 yo M)Acc No.[id number]:01/19/2024 Patient: Marciano HEDRICK Provider: SUMA Chaparro :1965 A ge:58 Y S ex:Male Date:01/19/2024 Address:[address], [place] Subjective: * Chief Complaints: * 1 . Cx by pts sister/ may call back to r/s-- Retention/VT. * Medical History: Objective: * Vitals: Assessment: Plan: * Treatment: * Billing Information: * Visit Code: * Procedure Codes: * Electronic signature of GAMA GARCIA APRN on 04/14/2025 at 08:34 PM CRIB CLERK Sign off status: Pending * Provider: Tram Garcia APRN-ACCOUNTS PAYABLE CLERK Date: 0 01/19/2024 Generated for Miles silva/Poonam/Emiliano on: 1 06/15/2024 08:34 PM CRIB CLERK
--- OUTSIDE RECORDS SUMMARY | 2024-01-24 08:30 | XMS_ITS ---
Author Organization [employer], [employer] Address [address] [place] [address] Care Team Providers Care Brusher Warp Name Role Phone EDI DILL Unavailable [phone] PHILLIP RAZO Unavailable [phone] REASON FOR VISIT retention/VT Encounters Encounter Location Date Provider Diagnosis [employer] [address] [place] [address] 01/24/2024 PHILLIP RAZO Plan Of Treatment Next Appt Details Provider Name:Kain Marroquin, 06/25/2025 02:00:00 PM, [address] [place], [address], Progress Notes * Marciano REYES LDOB: 4 (59 yo M)Acc No.[id number]:01/24/2024 Patient: Marciano HEDRICK Provider: She Razo APRN :1965 A ge:58 Y S ex:Male Date:01/24/2024 Address:[address], [place] Subjective: * Chief Complaints: * 1 . retention/VT. * Medical History: Objective: * Vitals: Assessment: Plan: * Treatment: * Billing Information: * Visit Code: * Procedure Codes: * Electronic signature of LORE RAZO APRN on 04/14/2025 at 08:39 PM WILDLIFE CONTROL AGENT Sign off status: Pending * Provider: She Razo APRN Date: 0 01/24/2024 Generated for Miles silva/Poonam/Emiliano on: 1 06/15/2024 08:39 PM WILDLIFE CONTROL AGENT
--- OUTSIDE RECORDS SUMMARY | 2025-01-03 | XMS_ITS ---
Author Organization [facility], [facility] Address [address] [place] [address] Care Team Providers Care Quality Nurse Name Role Phone FUENTES EDI Irene [phone] REASON FOR VISIT Cystoscopy @ MAIN OR (Charity Lift) Encounters Encounter Location Date Provider Diagnosis [facility], [facility] [address] [facility] [place] [address] 01/03/2025 EDI DILL Plan Of Treatment Next Appt Details Provider Name:Kain Marroquin, 06/25/2025 02:00:00 PM, [address] [facility] [place], [address], Progress Notes * Marciano REYES LDOB: 4 (59 yo M)Acc No.[id number]:01/03/2025 Patient: Marciano HEDRICK Provider: Tram DILL MD :1965 A ge:59 Y S ex:Male Date:01/03/2025 Address:[address], [place] * Billing Information: * Visit Code: * Procedure Codes: * Electronic signature of AUST IN MD FUENTES on 04/14/2025 at 08:33 PM RECONNAISSANCE CREWMEMBER Sign off status: Pending * Provider: Tram DILL MD Date: 0 01/03/2025 Generated for Miles silva/Poonam/eTransmitting on: 1 06/15/2024 08:33 PM RECONNAISSANCE CREWMEMBER
[2025-04-14 19:52] VITALS: BP 124/51; PULSE 87; RESP 20; TEMP 36.5; O2SAT 97; BMI 38.9
--- NOTE | 2025-04-14 19:55 | ECG_ITS ---
[facility] 2025-[facility]14 Pat Name: Marciano Alonso Department: Room: Gender: Male Nursing Care Partner: : 1965 Requested By: Dwayne Calderon Order Number: [id number] Lima MD: Parvez De Anda M.D. Measurements Intervals Tilly Rate: 85 P: 0 IN: 0 QRS: -74 QRSD: 135 T: 0 QT: 429 QTc: 512 Interpretive Statements ATRIAL FIBRILLATION INTRAVENTRICULAR CONDUCTION DELAY [130+ ms QRS DURATION] ANTEROLATERAL MYOCARDIAL INFARCTION , OF INDETERMINATE AGE [40+ ms Q WAVE IN I/aVL/V3-V6] Compared to ECG 04/09/2025 20:04:12 HEART RATE HAS DECREASED Electronically Signed On 04-15-2025 17:07:34 POULTRY DRESSING WORKER by Parvez De Anda M.D. [email or web address]
--- NOTE | 2025-04-14 20:33 | W.ED.RECABL ---
HPI - Recheck/Abnormal Lab/Rx General: Chief Complaint: Recheck/Abnormal Lab/Rx Stated Complaint: WEAKNESS History of Present Illness: Patient is a 59-year-old male presenting with complaints of weakness and low blood pressure. He reports feeling a little weak during the encounter. The patient is currently receiving antibiotic therapy, suggesting an underlying infectious process. He also reports pain in his shoulder. The patient mentions difficulty feeding himself due to having a bad arm. The timing, onset, and specific cause of his current symptoms are not clearly delineated in the available information, but his presentation suggests possible systemic illness requiring ongoing medical management. Related Data Home Medications ?Medication ?Instructions ?Recorded ?Confirmed allopurinol 300 mg tablet 300 mg PO DAILY 05/08/19 04/06/25 cholecalciferol (vitamin D3) 25 1,000 unit PO DAILY 05/08/19 04/06/25 mcg (1,000 unit) capsule montelukast 10 mg tablet 10 mg PO BEDTIME 05/08/19 04/06/25 metoclopramide HCl 10 mg tablet 10 mg PO QID Indigestion 04/16/22 04/06/25 (Reglan) multivit-minerals no.60-ferrous 1 tab PO DAILY 10/16/22 04/06/25 fumarate-folic acid 27 mg-1 mg tablet (Niva-Plus) metoprolol tartrate 100 mg tablet 100 mg PO BID 12/28/23 04/06/25 magnesium hydroxide 400 mg/5 mL 30 ml PO .Q72H PRN Constipation 04/24/24 04/06/25 oral suspension (Milk of Magnesia) sodium phosphates 19 gram-7 118 ml OK DAILY PRN Constipation 04/24/24 04/06/25 gram/118 mL enema (Fleet Enema) tamsulosin 0.4 mg capsule (Flomax) 0.4 mg PO BID 04/24/24 04/06/25 acetaminophen 500 mg capsule 500 mg PO Q6H PRN pain or fever 09/08/24 04/06/25 budesonide 160 mcg-glycopyr 9 2 inh inhalation BID 09/08/24 04/06/25 mcg-formot 4.8 mcg/actuation HFA inhaler (Breztri Aerosphere) albuterol sulfate 2.5 mg/3 mL 2.5 mg inhalation Q6H PRN Dyspnea 02/05/25 04/06/25 (0.083 %) solution for nebulization atorvastatin 20 mg tablet 20 mg PO DAILY 02/05/25 04/06/25 brinzolamide 1 % eye 1 drp ophthalmic (eye) BID 02/05/25 04/06/25 drops,suspension latanoprost 0.005 % eye drops 1 drp ophthalmic (eye) BEDTIME 02/05/25 04/06/25 triamcinolone acetonide 0.1 % 1 applic topical BID PRN skin 02/09/25 04/06/25 topical cream irritation on ears bisacodyl 5 mg tablet 10 mg PO DAILY PRN Constipation 02/14/25 04/06/25 miscellaneous medical supply 02/14/25 04/06/25 (Ocusoft Eyelid Cleansing Pads) semaglutide 1 mg/dose (4 mg/3 mL) 1 mg SUBCUT Q7D 02/14/25 04/06/25 subcutaneous pen injector (Ozempic) menthol 0.8 % topical powder (Gold See Rx Instructions .Route .COMPLEX 03/13/25 04/06/25 Castillo Medicated Body) ondansetron 8 mg disintegrating 8 mg PO Q6H PRN Nausea And Vomiting 03/13/25 04/06/25 tablet potassium chloride 20 mEq 20 meq PO DAILY 03/13/25 04/06/25 tablet,extended release(part/cryst) omeprazole 40 mg capsule,delayed 40 mg PO BID 03/19/25 04/06/25 release bumetanide 1 mg tablet 3 mg PO BID 03/21/25 04/06/25 hydrocodone 5 mg-acetaminophen 325 1 tab PO .Q8H PRN pain 04/06/25 04/06/25 mg tablet lidocaine 4 % topical patch 1 patch topical BID 04/06/25 04/06/25 (Lidocaine Pain Relief) lubiprostone 8 mcg capsule 8 mcg PO BID 04/06/25 04/06/25 miscellaneous medical supply 04/06/25 04/06/25 (Ocusoft Eyelid Cleansing Pads) semaglutide 2 mg/dose (8 mg/3 mL) 2 mg SUBCUT Q7D 04/06/25 04/06/25 subcutaneous pen injector (Ozempic) white petrolatum-mineral oil 94 1 applic ophthalmic (eye) BEDTIME 04/06/25 04/06/25 %-3 % eye ointment (GenTeal Tears Severe (petrolatum-mineral oil)) Previous Rx's ?Medication ?Instructions ?Recorded fluticasone propionate 50 1 spray intranasal BID #15.8 mL 07/18/19 mcg/actuation nasal spray,suspension pregabalin 50 mg capsule 50 mg PO TID #90 caps 03/22/24 diltiazem HCl 180 mg 180 mg PO DAILY #30 caps 02/11/25 capsule,extended release 24 hr (Cardizem CD) apixaban 5 mg tablet (Eliquis) 5 mg PO BID #180 tabs 03/22/25 fosfomycin tromethamine 3 gram 3 g PO Q3D 30 days #10 ea 04/10/25 oral packet amiodarone 400 mg tablet 200 mg (1/2 x 400 mg) PO QAM #30 04/11/25 tabs insulin aspart U-100 100 unit/mL 10 unit SUBCUT TID #15 mL 04/11/25 (3 mL) subcutaneous pen insulin degludec 100 unit/mL (3 10 unit (0.1 mL) SUBCUT BEDTIME 04/11/25 mL) subcutaneous pen (Tresiba #15 mL FlexTouch U-100 insulin) linezolid 600 mg tablet 600 mg PO BID 7 days #14 tabs 04/11/25 Allergies Allergy/AdvReac Type Severity Reaction Status Date / Time Penicillins Allergy ALGY-Hives Verified 04/14/25 19:57 Sulfa (Sulfonamide Allergy ALGY-Hives Verified 04/14/25 19:57 Antibiotics) PFS ED PFSH: Medical History (Updated 04/14/25 @ 20:35 by Dwayne Pierre DO) stock hanger (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 of oral hypoglycemic drugs UTI (urinary tract infection) Chronic indwelling Constantino catheter Sleep apnea, unspecified Constipation Dry eye syndrome of unspecified lacrimal gland Unspecified glaucoma Gastro-esophageal reflux disease without esophagitis Benign prostatic hyperplasia without lower urinary tract symptoms Gout, unspecified Hyperlipidemia, unspecified 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 heart failure stock hanger (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 of 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 Muscle weakness (generalized) COPD (chronic obstructive pulmonary disease) senior care (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 of anticoagulants Chronic atrial fibrillation, unspecified Open wound of left lower quadrant of abdominal wall without penetration into peritoneal cavity Intertriginous dermatitis associated with moisture Morbid obesity Atrial flutter Encounter for screening colonoscopy Repeat screening colonoscopy in 10 years unless otherwise specified Chronic low back pain Chronic right shoulder pain Diabetes mellitus Shoulder pain BILATERAL Encounter for long-term use of opiate analgesic Right knee pain Amputation above knee Left Diabetes type 2, controlled Essential hypertension Dysuria-frequency syndrome Seizure BPH (benign prostatic hyperplasia) Primary osteoarthritis of both knees r knee Obstructive sleep apnea syndrome Surgical History History of left above knee amputation History of shoulder surgery 2002 x 2 L shoulder Family History Other Heart disease Hypertension Social History Smoking and tobacco/nicotine status: never used tobacco/nicotine Quit status (tobacco/nicotine): not considering quitting Second hand smoke exposure: No Alcohol intake: never Substance/Drug Use: never Additional social history: Patient chews a can of tobacco daily. 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 Physical Exam Const: COMMON NORMALS: no acute distress GENERAL APPEARANCE: cooperative; not ill appearing and not frail appearing HENMT: COMMON NORMALS: normocephalic, atraumatic and Normal external nose present HEAD & SCALP: normocephalic and atraumatic FACE & SINUS: normal facial exam and face symmetric NOSE: Normal external nose present Eye: COMMON NORMALS: Equal, round and reactive pupils present and EOMs intact bilaterally PUPIL: Yes Equal, round and reactive pupils present Neck/C-Spine: GENERAL: Yes trachea midline Chest: CHEST: Yes Symmetrical chest wall rise Resp: COMMON NORMALS: normal respiratory effort, No retractions, No use of accessory muscles and clear to auscultation bilaterally AUSCULTATION: clear to auscultation bilaterally Cardio: COMMON NORMALS: regular rate and regular rhythm RATE: regular rate RHYTHM: regular rhythm GI: COMMON NORMALS: Normal to inspection, nondistended, normoactive bowel sounds present Extremity: NARRATIVE EXTREMITY EXAM: Mild edema Neuro: LUIS F COMA SCALE: document GCS findings Luis F coma scale eye opening: Spontaneous Luis F coma scale verbal response: Orientated Williams coma scale motor response: Obey commands Luis F coma scale total score: 15 SENSORY EXAM: Yes extremities (intact) Psych: COMMON NORMALS: speech normal SPEECH: Yes normal speech Course Vital Signs: Vital signs: Vital Signs Temperature 97.7 F 04/14/25 19:52 Pulse Rate 88 04/14/25 21:33 Respiratory Rate 20 H 04/14/25 19:52 Blood Pressure 109/58 04/14/25 21:33 Pulse Oximetry 98 04/14/25 21:33 MDM - Recheck/Abnormal Lab/Rx Medical Decision Making Patient seen here for generalized weakness and low blood pressure. He was evidently somewhat lethargic. Currently, he is awake, completely appropriate, laughing in the exam room. His blood pressure is 124/51. He is nontachycardic. He is afebrile. At this point he is stable for discharge. Will continue his IV antibiotics through the PICC line in the alf. All radiology interpretation(s) finalized by discharge Discharge Plan Discharge Patient Disposition: Home Clinical Impression: Acute hypotension Condition: Stable Prescriptions: No Action montelukast 10 mg tablet 10 mg PO BEDTIME allopurinol 300 mg tablet 300 mg PO DAILY cholecalciferol (vitamin D3) 1,000 unit capsule 1,000 unit PO DAILY tamsulosin [Flomax] 0.4 mg capsule 0.4 mg PO BID magnesium hydroxide [Milk of Magnesia] 400 mg/5 mL suspension 30 ml PO .Q72H PRN (Reason: Constipation) Fleet Enema 19-7 gram/118 mL enema 118 ml OK DAILY PRN (Reason: Constipation) metoclopramide HCl [Reglan] 10 mg tablet 10 mg PO QID Niva-Plus 27 mg iron- 1 mg tablet 1 tab PO DAILY metoprolol tartrate 100 mg tablet 100 mg PO BID acetaminophen 500 mg capsule 500 mg PO Q6H PRN (Reason: pain or fever) Breztri Aerosphere 160-9-4.8 mcg/actuation HFA aerosol inhaler 2 inh inhalation BID omeprazole 40 mg capsule,delayed release(DR/EC) 40 mg PO BID fluticasone propionate 50 mcg/actuation spray,suspension 1 spray INTRANASAL BID Qty: 15.8 6RF pregabalin 50 mg capsule 50 mg PO TID Qty: 90 5RF bumetanide 1 mg tablet 3 mg PO BID Rx Instructions: take one extra tablet as needed for weight gain of 2 pounds in a day or 5 pounds in a week Eliquis 5 mg tablet 5 mg PO BID Qty: 180 0RF Gold Castillo Medicated Body 0.8 % Powder See Rx Instructions .ROUTE .COMPLEX Rx Instructions: Cleanse abdominal folds ensuring completely dry then apply to entire abdominal folds and under arms every shift. ondansetron 8 mg tablet,disintegrating 8 mg PO Q6H PRN (Reason: Nausea And Vomiting) potassium chloride 20 mEq tablet,ER particles/crystals 20 meq PO DAILY albuterol sulfate 2.5 mg /3 mL (0.083 %) solution for nebulization 2.5 mg inhalation Q6H PRN (Reason: Dyspnea) brinzolamide 1 % drops,suspension 1 drp ophthalmic (eye) BID latanoprost 0.005 % drops 1 drp ophthalmic (eye) BEDTIME atorvastatin 20 mg tablet 20 mg PO DAILY triamcinolone acetonide 0.1 % cream 1 applic TOPICAL BID PRN (Reason: skin irritation on ears) diltiazem HCl [Cardizem CD] 180 mg capsule,extended release 24hr 180 mg PO DAILY Qty: 30 0RF bisacodyl 5 mg Tablet 10 mg PO DAILY PRN (Reason: Constipation) (DME) Ocusoft Eyelid Cleansing Pads Pad MISCELLANEOUS Ozempic 1 mg/dose (4 mg/3 mL) pen injector 1 mg SUBCUT Q7D Rx Instructions: Wednesday GenTeal Tears Severe(petrolat) 94-3 % ointment 1 applic ophthalmic (eye) BEDTIME lidocaine [Lidocaine Pain Relief] 4 % adhesive patch,medicated 1 patch TOPICAL BID MDD on in am/off in pm (DME) Ocusoft Eyelid Cleansing Pads Pad MISCELLANEOUS Rx Instructions: Use 1 pad on each eyelid once daily lubiprostone 8 mcg capsule 8 mcg PO BID Ozempic 2 mg/dose (8 mg/3 mL) pen injector 2 mg SUBCUT Q7D Rx Instructions: Wednesday's hydrocodone-acetaminophen 5-325 mg tablet 1 tab PO .Q8H PRN (Reason: pain) fosfomycin tromethamine 3 gram packet 3 g PO Q3D 30 Days Qty: 10 1RF amiodarone 400 mg tablet 200 mg PO QAM Qty: 30 0RF insulin aspart U-100 100 unit/mL (3 mL) insulin pen 10 unit SUBCUT TID Qty: 15 0RF Protocol: Insulin Corrective High-Dose Regimen Condition: Fingerstick Blood Glucose Dose/Route: Insulin Units Condition: 141-180 mg/dl Dose/Route: 2 units/SQ Condition: 181-220 mg/dl Dose/Route: 4 units/SQ Condition: 221-260 mg/dl Dose/Route: 6units/SQ Condition: 261-300 mg/dl Dose/Route: 8 units/SQ Condition: 301-350 mg/dl Dose/Route: 10 units/SQ Condition: 351-400 mg/dl Dose/Route: 12 units/SQ Condition: greater than 400 mg/dl Dose/Route: 14units/SQ Rx Instructions: with meals insulin degludec [Tresiba FlexTouch U-100] 100 unit/mL (3 mL) insulin pen 10 unit SUBCUT BEDTIME Qty: 15 0RF linezolid 600 mg tablet 600 mg PO BID 7 Days Qty: 14 0RF Discharge Orders: Discharge ED (Routine); Ordered 04/14/25 Ordered By: Dwayne Pierre Referrals: Chris Parker DO [Primary Care Provider, Internal Medicine] - 1-3 days Patient Instructions: Hypotension (ED), Opioid Safety, Pain Management, Patient Portal & Neeraj Instructions Activity Restrictions/Additional Instructions: The low blood pressure he experienced in the alf, appears to be transient. Your blood pressure has been normal here. No alarming signs on exam. Return for any problems. Print Language: Uzbek Coding Level of Care Code ED Diagnostic Cardiac Sonographer for Jeronimo Enamorado
--- OUTSIDE RECORDS SUMMARY | 2025-04-14 20:33 | XMS_ITS | Encounter Summary ---
Author Organization [employer] (roll.to)[facility] Address [address] [place] [address] Care Team Providers Care Physician Extender Name Role Phone Cuba Solano MD Primary Care Provider [phone] Encounter Details Date Type Department Care Team (Latest Contact Info) Description 09/06/2006 [facility] 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
--- OUTSIDE RECORDS SUMMARY | 2025-04-14 20:33 | XMS_ITS | Encounter Summary ---
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
--- OUTSIDE RECORDS SUMMARY | 2025-04-14 20:33 | XMS_ITS | Encounter Summary ---
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 Mccloud, SHEET METAL WORKER NO ADDRESS ON FILE Social History Tobacco Use Types Packs/Day Years Used Date Smoking Tobacco: Never Assessed Cigarettes Smokeless Tobacco: Current Chew Alcohol Use Standard Drinks/Week Comments No 0 (1 standard drink = 0.6 oz pur e alcohol) Sex and Gender Information Value Date Recorded Sex Assigned at Not on file 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
--- OUTSIDE RECORDS SUMMARY | 2025-04-14 20:33 | XMS_ITS | Encounter Summary ---
Author Organization [facility] Address [address] [place] [address] Care Team Providers Care Payroll Examiner Name Role Phone Cuba Solano MD Primary Care Provider [phone] Encounter Details Date Type Department Care Team (Latest Contact Info) Description 11/30/2006 Outpatient Historical [facility] [place] [id number] [address] Keyona Mccloud, LUCIEN NO ADDRESS ON FILE Unspecified Otitis Media (Primary Dx); DM w/o Complication Type II (CMS/HCC); Asymptomatic Varicose Veins Social History Tobacco Use Types Packs/Day Years Used Date Smoking Tobacco: Never Assessed Sex and Gender Information Value Date Recorded Sex Assigned at Not on file 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
--- OUTSIDE RECORDS SUMMARY | 2025-04-14 20:33 | XMS_ITS | Encounter Summary ---
Author Organization [employer] [facility] Address [address] [place] [address] Care Team Providers Care Stoper Name Role Phone Cuba Solano MD Primary Care Provider [phone] Encounter Details Date Type Department Care Team (Late st Contact Info) Description 06/20/2007 Outpatient Historical [facility] Other, 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
--- OUTSIDE RECORDS SUMMARY | 2025-04-14 20:33 | XMS_ITS | Encounter Summary ---
Author Organization [facility] Address [address] [place] [address] Care Team Providers Care Event Mgr Name Role Phone Cuba Solano MD Primary Care Provider +1 [phone] Encounter Details Date Type Department Care Team (Latest Contact Info) Description 12/30/2006 Outpatient Historical [facility] Family Medicine [place] [id number] [address] Keyona Mccloud FNP NO ADDRESS ON FILE DM w/o Complication Type II (CMS/[facility]) (Primary Dx); Allergy, Unspecified not Elsewhere Classified; Unspecified Otitis Media; Neuropathy in Diabetes Social History Tobacco Use Types Packs/Day Years Used Date Smoking Tobacco: Never Assessed Sex and Gender Information Value Date Recorded Sex Assigned at Not on file 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
--- OUTSIDE RECORDS SUMMARY | 2025-04-14 20:33 | XMS_ITS | Encounter Summary ---
Author Organization [facility] Address [address] [place] [address] Care Team Providers Care Property Worker Name Role Phone Cuba Solano MD Primary Care Provider +1 [phone] Encounter Details Date Type Department Care Team (Latest Contact Info) Description 05/11/2007 Outpatient Historical [facility] [address] [place] [address] Keyona Mccloud FNP NO ADDRESS ON FILE DM w/o Complication Type II, Uncontrolled Social History Tobacco Use Types Packs/Day Years Used Date Smoking Tobacco: Never Assessed Sex and Gender Information Value Date Recorded Sex Assigned at Not on file Legal Sex Male 2:49 AM CLINICAL MEDICAL TRANSCRIPTIONIST Gender Identity Not on file Sexual Orientation Not on file documented as of this encounter Plan of Treatment Not on file documented as of this encounter Visit Diagnoses Diagnosis Type II or unspecified type diabetes mellitus 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, uncontrolled documented in this encounter Care Teams Property Worker Relationship Specialty Start Date End Date Cuba Solano MD PCP - General 07/11/09 documented as of this encounter
--- OUTSIDE RECORDS SUMMARY | 2025-04-14 20:33 | XMS_ITS | Encounter Summary ---
Author Organization [facility] Address [address] [place] [address] Care Team Providers Care Mail Examiner Name Role Phone Cuba Solano MD Primary Care Provider +1 [phone] Encounter Details Date Type Department Care Team (Late st Contact Info) Description 09/21/2007 Outpatient Historical [facility] Keyona Mccloud, MEDICAL ASSISTANT NO ADDRESS ON FILE Social History Tobacco Use Types Packs/Day Years Used Date Smoking Tobacco: Never Assessed Sex and Gender Information Value Date Recorded Sex Assigned at Not on file Legal Sex Male 2:49 AM PUPIL PERSONNEL SERVICES DIRECTOR Gender Identity Not on file Sexual Orientation Not on file documented as of this encounter Plan of Treatment Not on file documented as of this encounter Visit Diagnoses Not on filedocumented in this encounter Care Teams Mail Examiner Relationship Specialty Start Date End Date Cuba Solano MD PCP - General 07/11/09 documented as of this encounter
--- OUTSIDE RECORDS SUMMARY | 2025-04-14 20:33 | XMS_ITS | Encounter Summary ---
Author Organization [facility] Address [address] [place] [address] Care Team Providers Care Finance Advisor Name Role Phone Cuba Solano MD Primary Care Provider +1 [phone] Encounter Details Date Type Department Care Team (Late st Contact Info) Description 08/05/2006 Outpatient Historical [facility] Family Medicine Angelica [place] 00[address]32 [address] [address] Social History Tobacco Use Types Packs/Day Years Used Date Smoking Tobacco: Never Assessed Sex and Gender Information Value Date Recorded Sex Assigned at Not on file Legal Sex Male 2:49 AM SENIOR PRODUCT MANAGER Gender Identity Not on file Sexual Orientation Not on file documented as of this encounter Plan of Treatment Not on file documented as of this encounter Visit Diagnoses Not on filedocumented in this encounter Care Teams Finance Advisor Relationship Specialty Start Date End Date Cuba Solano MD PCP - General 07/11/09 documented as of this encounter
--- OUTSIDE RECORDS SUMMARY | 2025-04-14 20:33 | XMS_ITS | Encounter Summary ---
Author Organization [facility] Address [address] [place] [address] Care Team Providers Care Principal Technologist Name Role Phone Cuba Solano MD Primary Care Provider +1 [phone] Encounter Details Date Type Department Care Team (Latest Contact Info) Description 12/10/2006 Outpatient Historical [facility] Orthopedics- [address] [place] [address] Ash Lopez III, MD [address] [place] [address] Pain in Joint, Lower Leg (Primary Dx); Muscular Wasting and Disuse Atrophy, not Elsewhere Classified; Lower Limb Amputation, Above Knee (CMS/HCC) Social History Tobacco Use Types Packs/Day Years Used Date Smoking Tobacco: Never Assessed Sex and Gender Information Value Date Recorded Sex Assigned at Not on file Legal Sex Male 2:49 AM TOPPIECE CHOPPER Gender Identity Not on file Sexual Orientation Not on file documented as of this encounter Plan of Treatment Not on file documented as of this encounter Visit Diagnoses Diagnosis Pain in joint, lower leg- Primary Muscular wasting and disuse atrophy, 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
--- OUTSIDE RECORDS SUMMARY | 2025-04-14 20:33 | XMS_ITS | Encounter Summary ---
Author Organization [facility] Address [address] [place] [address] Care Team Providers Care Supervisor Abattoir Name Role Phone Cuba Solano MD Primary Care Provider +1 [phone] Encounter Details Date Type Department Care Team (Late st Contact Info) Description 02/07/2008 Outpatient Historical [facility] [address] [place] [address] Per Perea NP [address] [place] [address] Social History Tobacco Use Types Packs/Day Years Used Date Smoking Tobacco: Never Assessed Cigarettes Smokeless Tobacco: Current Chew Alcohol Use Standard Drinks/Week Comments No 0 (1 standard drink = 0.6 oz pur e alcohol) Sex and Gender Information Value Date Recorded Sex Assigned at Not on file Legal Sex Male 2:49 AM PNEUMATIC RIVETER Gender Identity Not on file Sexual Orientation Not on file documented as of this encounter Plan of Treatment Not on file documented as of this encounter Visit Diagnoses Not on filedocumented in this encounter Care Teams Supervisor Abattoir Relationship Specialty Start Date End Date Cuba Solano MD PCP - General 07/11/09 documented as of this encounter
--- OUTSIDE RECORDS SUMMARY | 2025-04-14 20:33 | XMS_ITS | Encounter Summary ---
Author Organization [facility] Address [address] [place] [address] Care Team Providers Care Geophysical Laboratory Chief Name Role Phone Cuba Solano MD Primary Care Provider +1 [phone] Encounter Details Date Type Department Care Team (Late st Contact Info) Description 05/31/2007 Outpatient Historical [facility] Family Medicine Angel[place] 00[address] [address] Keyona Mccloud, TICKET MANAGER NO ADDRESS ON FILE Social History Tobacco Use Types Packs/Day Years Used Date Smoking Tobacco: Never Assessed Sex and Gender Information Value Date Recorded Sex Assigned at Not on file Legal Sex Male 2:49 AM CRYSTAL FLAT GRINDER Gender Identity Not on file Sexual Orientation Not on file documented as of this encounter Plan of Treatment Not on file documented as of this encounter Visit Diagnoses Not on filedocumented in this encounter Care Teams Geophysical Laboratory Chief Relationship Specialty Start Date End Date Cuba Solano MD PCP - General 07/11/09 documented as of this encounter
--- OUTSIDE RECORDS SUMMARY | 2025-04-14 20:33 | XMS_ITS | Encounter Summary ---
Author Organization [facility] Address [address] [place] [address] Care Team Providers Care Assistant Printer Floor Covering Name Role Phone Cuba Solano MD Primary Care Provider +1 [phone] Encounter Details Date Type Department Care Team (Latest Contact Info) Description 12/03/2006 Outpatient Historical [place] [address] [place] [address] Celso Calvert MD [address] [place] [address] DM w/o Complication Type II, Uncontrolled (Primary Dx) Social History Tobacco Use Types Packs/Day Years Used Date Smoking Tobacco: Never Assessed Sex and Gender Information Value Date Recorded Sex Assigned at Not on file Legal Sex Male 2:49 AM POWER PRESS SUPERVISOR Gender Identity Not on file Sexual Orientation Not on file documented as of this encounter Plan of Treatment Not on file documented as of this encounter Visit Diagnoses Diagnosis Type II or unspecified type diabetes mellitus 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, uncontrolled- Primary documented in this encounter Care Teams Assistant Printer Floor Covering Relationship Specialty Start Date End Date Cuba Solano MD PCP - General 07/11/09 documented as of this encounter
--- OUTSIDE RECORDS SUMMARY | 2025-04-14 20:33 | XMS_ITS | Encounter Summary ---
Author Organization [facility] Address [address] [place] [address] Care Team Providers Care Franchise Manager Name Role Phone Cuba Solano MD Primary Care Provider +1 [phone] Encounter Details Date Type Department Care Team (Late st Contact Info) Description 06/20/2007 Outpatient Historical [facility] Family Medicine [place] [address] [address] Keyona Mccloud, DRIVER GUARD NO ADDRESS ON FILE Social History Tobacco Use Types Packs/Day Years Used Date Smoking Tobacco: Never Assessed Sex and Gender Information Value Date Recorded Sex Assigned at Not on file Legal Sex Male 2:49 AM RUBBER PRESS TENDER Gender Identity Not on file Sexual Orientation Not on file documented as of this encounter Plan of Treatment Not on file documented as of this encounter Visit Diagnoses Not on filedocumented in this encounter Care Teams Franchise Manager Relationship Specialty Start Date End Date Cuba Solano MD PCP - General 07/11/09 documented as of this encounter
--- OUTSIDE RECORDS SUMMARY | 2025-04-14 20:33 | XMS_ITS | Encounter Summary ---
Author Organization [facility] Address [address] [place] [address] Care Team Providers Care Overhead Garage Door Hanger Name Role Phone Cuba Solano MD Primary Care Provider +1 [phone] Encounter Details Date Type Department Care Team (Late st Contact Info) Description 09/27/2007 Outpatient Historical [facility] Other, [facility] NO ADDRESS ON FILE Social History Tobacco Use Types Packs/Day Years Used Date Smoking Tobacco: Never Assessed Sex and Gender Information Value Date Recorded Sex Assigned at Not on file Legal Sex Male 2:49 AM TAR CHASER Gender Identity Not on file Sexual Orientation Not on file documented as of this encounter Plan of Treatment Not on file documented as of this encounter Visit Diagnoses Not on filedocumented in this encounter Care Teams Overhead Garage Door Hanger Relationship Specialty Start Date End Date Cuba Solano MD PCP - General 07/11/09 documented as of this encounter
--- OUTSIDE RECORDS SUMMARY | 2025-04-14 20:33 | XMS_ITS | Encounter Summary ---
Author Organization [facility] Address [address] [place] [address] Care Team Providers Care Calciner Feeder Name Role Phone Cuba Solano MD Primary Care Provider +1 [phone] Encounter Details Date Type Department Care Team (Late st Contact Info) Description 03/07/2007 Outpatient Historical [place] [address] [place] [address] Celso Calvert MD [address] [place] [id number] Social History Tobacco Use Types Packs/Day Years Used Date Smoking Tobacco: Never Assessed Sex and Gender Information Value Date Recorded Sex Assigned at Not on file Legal Sex Male 2:49 AM FACTORY MANAGER Gender Identity Not on file Sexual Orientation Not on file documented as of this encounter Plan of Treatment Not on file documented as of this encounter Visit Diagnoses Not on filedocumented in this encounter Care Teams Calciner Feeder Relationship Specialty Start Date End Date Cuba Solano MD PCP - General 07/11/09 documented as of this encounter
--- OUTSIDE RECORDS SUMMARY | 2025-04-14 20:33 | XMS_ITS | Encounter Summary ---
Author Organization [facility] Address [address] [place] [address] Care Team Providers Care Senior Mechanical Estimator Name Role Phone Cuba Solano MD Primary Care Provider +1 [phone] Encounter Details Date Type Department Care Team [...] on file Legal Sex Male 2:49 AM AUDIOVISUAL TECH Gender Identity Not on file Sexual Orientation Not on file documented as of this encounter Plan of Treatment Not on file documented as of this encounter Visit Diagnoses Not on filedocumented in this encounter Care Teams Senior Mechanical Estimator Relationship Specialty Start Date End Date Cuba Solano MD PCP - General 07/11/09 documented as of this encounter
--- OUTSIDE RECORDS SUMMARY | 2025-04-14 20:33 | XMS_ITS | Encounter Summary ---
Author Organization [facility] Address [address] [place] [address] Care Team Providers Care Loom Changer Name Role Phone Cuba Solano MD Primary Care Provider +1 [phone] Encounter Details Date Type Department Care Team (Late st Contact Info) Description 04/10/2008 Outpatient Historical [facility] [address] [address] [place] [address] Per Perea NP [address] [place] [address] Social History Tobacco Use Types Packs/Day Years Used Date Smoking Tobacco: Never Assessed Cigarettes Smokeless Tobacco: Current Chew Alcohol Use Standard Drinks/Week Comments No 0 (1 standard drink = 0.6 oz pur e alcohol) Sex and Gender Information Value Date Recorded Sex Assigned at Not on file Legal Sex Male 2:49 AM MACHINE FILLER Gender Identity Not on file Sexual Orientation Not on file documented as of this encounter Plan of Treatment Not on file documented as of this encounter Visit Diagnoses Not on filedocumented in this encounter Care Teams Loom Changer Relationship Specialty Start Date End Date Cuba Solano MD PCP - General 07/11/09 documented as of this encounter
--- OUTSIDE RECORDS SUMMARY | 2025-04-14 20:33 | XMS_ITS | Encounter Summary ---
Author Organization [facility] Address [address] [place] [address] Care Team Providers Care Cold Water Machine Operator Name Role Phone Cuba Solano MD Primary Care Provider +1 [phone] Encounter Details Date Type Department Care Team [...] file Legal Sex Male 2:49 AM CERTIFIED TUMOR REGISTRAR Gender Identity Not on file Sexual Orientation Not on file documented as of this encounter Plan of Treatment Not on file documented as of this encounter Visit Diagnoses Not on filedocumented in this encounter Care Teams Cold Water Machine Operator Relationship Specialty Start Date End Date Cuba Solano MD PCP - General 07/11/09 documented as of this encounter
--- OUTSIDE RECORDS SUMMARY | 2025-04-14 20:33 | XMS_ITS | Encounter Summary ---
Author Organization [facility] Address [address] [place] [address] Care Team Providers Care Dirt Supervisor Name Role Phone Cuba Solano MD Primary Care Provider +1 [phone] Encounter Details Date Type Department Care Team (Latest Contact Info) Description 06/17/2007 Outpatient Historical [place] [address] [place] [address] Celso Calvert MD [address] [place] [address] DM w/o Complication Type II, Uncontrolled Social History Tobacco Use Types Packs/Day Years Used Date Smoking Tobacco: Never Assessed Sex and Gender Information Value Date Recorded Sex Assigned at Not on file Legal Sex Male 2:49 AM MVA REACTOR OPERATOR HEAD Gender Identity Not on file Sexual Orientation Not on file documented as of this encounter Plan of Treatment Not on file documented as of this encounter Visit Diagnoses Diagnosis Type II or unspecified type diabetes mellitus 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, uncontrolled documented in this encounter Care Teams Dirt Supervisor Relationship Specialty Start Date End Date Cuba Solano MD PCP - General 07/11/09 documented as of this encounter
--- OUTSIDE RECORDS SUMMARY | 2025-04-14 20:33 | XMS_ITS | Encounter Summary ---
Author Organization [facility] Address [address] [place] [address] Care Team Providers Care Microfilm Mounter Name Role Phone Cuba Solano MD Primary Care Provider +1 [phone] Encounter Details Date Type Department Care Team (Late st Contact Info) Description 03/01/2008 Outpatient Historical [facility] [address] [place] [address] [place] [address] Kvng Kilpatrick MD NO ADDRESS ON FILE Social History Tobacco Use Types Packs/Day Years Used Date Smoking Tobacco: Never Assessed Cigarettes Smokeless Tobacco: Current Chew Alcohol Use Standard Drinks/Week Comments No 0 (1 standard drink = 0.6 oz pur e alcohol) Sex and Gender Information Value Date Recorded Sex Assigned at Not on file Legal Sex Male 2:49 AM MACHINE SPRING FORMER Gender Identity Not on file Sexual Orientation Not on file documented as of this encounter Plan of Treatment Not on file documented as of this encounter Visit Diagnoses Not on filedocumented in this encounter Care Teams Microfilm Mounter Relationship Specialty Start Date End Date Cuba Solano MD PCP - General 07/11/09 documented as of this encounter
--- OUTSIDE RECORDS SUMMARY | 2025-04-14 20:33 | XMS_ITS | Encounter Summary ---
Author Organization [facility] Address [address] [place] [address] Care Team Providers Care Cable Operator Name Role Phone Cuba Solano MD Primary Care Provider +1 [phone] Encounter Details Date Type Department Care Team (Late st Contact Info) Description 03/19/2008 Outpatient Historical [facility] Keyona Mccloud, AGILE SCRUM COACH NO ADDRESS ON FILE Social History Tobacco Use Types Packs/Day Years Used Date Smoking Tobacco: Never Assessed Cigarettes Smokeless Tobacco: Current Chew Alcohol Use Standard Drinks/Week Comments No 0 (1 standard drink = 0.6 oz pur e alcohol) Sex and Gender Information Value Date Recorded Sex Assigned at Not on file Legal Sex Male 2:49 AM COOK RESTAURANT Gender Identity Not on file Sexual Orientation Not on file documented as of this encounter Plan of Treatment Not on file documented as of this encounter Visit Diagnoses Not on filedocumented in this encounter Care Teams Cable Operator Relationship Specialty Start Date End Date Cuba Solano MD PCP - General 07/11/09 documented as of this encounter
--- OUTSIDE RECORDS SUMMARY | 2025-04-14 20:33 | XMS_ITS | Encounter Summary ---
Author Organization [facility] Address [address] [place] [address] Care Team Providers Care Behavioral Health Specialist Name Role Phone Cuba Solano MD Primary Care Provider +1 [phone] Encounter Details Date Type Department Care Team (Late st Contact Info) Description 04/05/2007 Outpatient Historical [facility] Family Medicine [place] [id number] [address] Social History Tobacco Use Types Packs/Day Years Used Date Smoking Tobacco: Never Assessed Sex and Gender Information Value Date Recorded Sex Assigned at Not on file Legal Sex Male 2:49 AM MEDICAL ANTHROPOLOGY DIRECTOR Gender Identity Not on file Sexual Orientation Not on file documented as of this encounter Plan of Treatment Not on file documented as of this encounter Visit Diagnoses Not on filedocumented in this encounter Care Teams Behavioral Health Specialist Relationship Specialty Start Date End Date Cuba Solano MD PCP - General 07/11/09 documented as of this encounter
--- OUTSIDE RECORDS SUMMARY | 2025-04-14 20:33 | XMS_ITS | Encounter Summary ---
Author Organization [facility] Address [address] [place] [address] Care Team Providers Care Orchestra Musician Name Role Phone Cuba Solano MD Primary Care Provider +1 [phone] Encounter Details Date Type Department Care Team (Latest Contact Info) Description 11/12/[address] [facility] Family Medicine [place] [address] [address] Keyona Mccloud, LUCIEN NO ADDRESS ON FILE Pain in Limb (Primary Dx) Social History Tobacco Use Types Packs/Day Years Used Date Smoking Tobacco: Never Assessed Sex and Gender Information Value Date Recorded Sex Assigned at Not on file Legal Sex Male 2:49 AM EMPLOYMENT EVALUATOR/CASE MANAGER Gender Identity Not on file Sexual Orientation Not on file documented as of this encounter Plan of Treatment Not on file documented as of this encounter Visit Diagnoses Diagnosis Pain in limb- Primary Pain in soft tissues of limb documented in this encounter Care Teams Orchestra Musician Relationship Specialty Start Date End Date Cuba Solano MD PCP - General 07/11/09 documented as of this encounter
--- OUTSIDE RECORDS SUMMARY | 2025-04-14 20:33 | XMS_ITS | Encounter Summary ---
Author Organization [facility] Address [address] [place] [address] Care Team Providers Care Roller Leveler Name Role Phone Cuba Solano MD Primary Care Provider +1 [phone] Encounter Details Date Type Department Care Team (Late st Contact Info) Description 03/02/[address] [facility] [address] [place] [address] [place] [address] Kvng Kilpatrick MD NO ADDRESS ON FILE Social History Tobacco Use Types Packs/Day Years Used Date Smoking Tobacco: Never Assessed Cigarettes Smokeless Tobacco: Current Chew Alcohol Use Standard Drinks/Week Comments No 0 (1 standard drink = 0.6 oz pur e alcohol) Sex and Gender Information Value Date Recorded Sex Assigned at Not on file Legal Sex Male 2:49 AM VEHICLE FARE COLLECTOR Gender Identity Not on file Sexual Orientation Not on file documented as of this encounter Plan of Treatment Not on file documented as of this encounter Visit Diagnoses Not on filedocumented in this encounter Care Teams Roller Leveler Relationship Specialty Start Date End Date Cuba Solano MD PCP - General 07/11/09 documented as of this encounter
--- OUTSIDE RECORDS SUMMARY | 2025-04-14 20:33 | XMS_ITS | Encounter Summary ---
Author Organization [facility] Address [address] [place] [address] Care Team Providers Care Extension Service Specialist In Charge Name Role Phone Cuba Solano MD Primary Care Provider +1 [phone] Encounter Details Date Type Department Care Team (Late st Contact Info) Description 04/05/2007 Outpatient Historical [facility] Family Medicine [place] [address] [address] Keyona Mccloud, WATER QUALITY MANAGER NO ADDRESS ON FILE Social History Tobacco Use Types Packs/Day Years Used Date Smoking Tobacco: Never Assessed Sex and Gender Information Value Date Recorded Sex Assigned at Not on file Legal Sex Male 2:49 AM GROUP EXERCISE MANAGER Gender Identity Not on file Sexual Orientation Not on file documented as of this encounter Plan of Treatment Not on file documented as of this encounter Visit Diagnoses Not on filedocumented in this encounter Care Teams Extension Service Specialist In Charge Relationship Specialty Start Date End Date Cuba Solano MD PCP - General 07/11/09 documented as of this encounter
--- OUTSIDE RECORDS SUMMARY | 2025-04-14 20:33 | XMS_ITS | Encounter Summary ---
Author Organization [facility] Address [address] [place] [address] Care Team Providers Care Shredded Filler Cutter Operator Name Role Phone Cuba Solano MD Primary Care Provider [phone] [phone] Encounter Details Date Type Department Care Team (Late st Contact Info) Description 12/03/2006 Outpatient Historical [facility] Social History Tobacco Use Types Packs/Day Years Used Date Smoking Tobacco: Never Assessed Sex and Gender Information Value Date Recorded Sex Assigned at Not on file Legal Sex Male 2:49 AM ASSISTANT FEDERAL PUBLIC DEFENDER Gender Identity Not on file Sexual Orientation Not on file documented as of this encounter Plan of Treatment Not on file documented as of this encounter Visit Diagnoses Not on filedocumented in this encounter Care Teams Shredded Filler Cutter Operator Relationship Specialty Start Date End Date Cuba Solano MD PCP - General 07/11/09 documented as of this encounter
--- OUTSIDE RECORDS SUMMARY | 2025-04-14 20:33 | XMS_ITS | Encounter Summary ---
Author Organization [facility] Address [address] [place] [address] Care Team Providers Care Mend Worker Name Role Phone Cuba Solano MD Primary Care Provider [phone] [phone] Encounter Details Date Type Department Care Team (Latest Contact Info) Description 06/10/2007 Outpatient Historical [facility] [address] [place] [address] Keyona Mccloud FNP NO ADDRESS ON FILE DM w/o Complication Type II, Uncontrolled Social History Tobacco Use Types Packs/Day Years Used Date Smoking Tobacco: Never Assessed Sex and Gender Information Value Date Recorded Sex Assigned at Not on file Legal Sex Male 2:49 AM OFFICE TECHNICIAN Gender Identity Not on file Sexual Orientation Not on file documented as of this encounter Plan of Treatment Not on file documented as of this encounter Visit Diagnoses Diagnosis Type II or unspecified type diabetes mellitus 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, uncontrolled documented in this encounter Care Teams Mend Worker Relationship Specialty Start Date End Date Cuba Solano MD PCP - General 07/11/09 documented as of this encounter
--- OUTSIDE RECORDS SUMMARY | 2025-04-14 20:34 | XMS_ITS | Encounter Summary ---
Author Organization [facility] Address [address] [place] [address] Care Team Providers Care School Bus Operator Name Role Phone Cuba Solano MD Primary Care Provider [phone] [phone] Encounter Details Date Type Department Care Team (Latest Contact Info) Description 07/15/2006 Outpatient Historical [facility] [address] [place] [address] [facility] [address] [place] [address] Ash Lopez III, MD [address] [place] [address] Adhesive Capsulitis of Shoulder (Primary Dx) Social History Tobacco Use Types Packs/Day Years Used Date Smoking Tobacco: Never Assessed Sex and Gender Information Value Date Recorded Sex Assigned at Not on file 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 Gender Identity Not on file Sexual [...] OF CARE TESTING Edited Performing Organization Address [facility] Co de Phone Number INTERFACE SYSTEM Refer to clinic/hospital department * (ABNORMAL) POC GLUCOSE (07/15/2006 11:02 AM CDT) GLUCOSE POC 116(H) 60 - 100 mg/dL INTERFACE SYSTEM 07/15/2006 11:0 2 AM CDT Ash Lopez III, MD POINT OF CARE TESTING Edited Performing Organization Address [facility] de Phone Number INTERFACE SYSTEM Refer to clinic/hospital department documented in this encounter Visit Diagnoses Diagnosis Adhesive capsulitis of shoulder- Primary documented in this encounter Care Teams School Bus Operator Relationship Specialty Start Date End Date Cuba Solano MD PCP - General 07/11/09 documented as of this encounter
--- OUTSIDE RECORDS SUMMARY | 2025-04-14 20:34 | XMS_ITS | Encounter Summary ---
Author Organization [facility] Address [address] [place] [address] Care Team Providers Care Manager Hematology Name Role Phone Cuba Solano MD Primary Care Provider +1 [phone] Encounter Details Date Type Department Care Team (Latest Contact Info) Description 12/03/2004 Outpatient Historical [facility]- 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
--- OUTSIDE RECORDS SUMMARY | 2025-04-14 20:34 | XMS_ITS | Encounter Summary ---
Author Organization [facility] Address [address] [place] [address] Care Team Providers Care Marble Mason Name Role Phone Cuba Solano MD Primary Care Provider [phone] [phone] Encounter Details Date Type Department Care Team (Latest Contact Info) Description 06/18/2006 Outpatient Historical [facility] [address] [place] [address] Keyoan Mccloud, LUCIEN NO ADDRESS ON FILE Supraventricular Premature Beats (Primary Dx) Social History Tobacco Use Types Packs/Day Years Used Date Smoking Tobacco: Never Assessed Sex and Gender Information Value Date Recorded Sex Assigned at Not on file 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
--- OUTSIDE RECORDS SUMMARY | 2025-04-14 20:34 | XMS_ITS | Encounter Summary ---
Author Organization [facility] Address [address] [place] [address] Care Team Providers Care Agricultural Loan Officer Name Role Phone Cuba Solano MD Primary Care Provider [phone] [phone] Encounter Details Date Type Department Care Team (Latest Contact Info) Description 03/29/2006 Outpatient Historical [facility] [place] [id number] [address] Keyona Mccloud, LUCEIN NO ADDRESS ON FILE Unspecified Essential Hypertension (Primary Dx) Social History Tobacco Use Types Packs/Day Years Used Date Smoking Tobacco: Never Assessed Sex and Gender Information Value Date Recorded Sex Assigned at Not on file 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
--- OUTSIDE RECORDS SUMMARY | 2025-04-14 20:34 | XMS_ITS | Encounter Summary ---
Author Organization [facility] Address [address] [place] [address] Care Team Providers Care Ostrich Farmer Name Role Phone Cuba Solano MD Primary Care Provider [phone] [phone] Encounter Details Date Type Department Care Team (Latest Contact Info) Description 04/23/2006 Outpatient Historical [facility]- [address] [place] 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
--- OUTSIDE RECORDS SUMMARY | 2025-04-14 20:34 | XMS_ITS | Encounter Summary ---
Author Organization [facility] Address [address] [place] [address] Care Team Providers Care Underground Bolting Machine Operator Name Role Phone Cuba Solano MD Primary Care Provider [phone] [phone] Encounter Details Date Type Department Care Team (Latest Contact Info) Description 05/26/2005 Outpatient Historical [facility] [place] [id number] [address] Keyona Mccloud, LUCIEN NO ADDRESS ON FILE ALLERGY, UNSPECIFIED (Primary Dx); TRACHEA/BRONCHUS DIS NEC Social History Tobacco Use Types Packs/Day Years Used Date Smoking Tobacco: Never Assessed Sex and Gender Information Value Date Recorded Sex Assigned at Not on file 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
--- OUTSIDE RECORDS SUMMARY | 2025-04-14 20:34 | XMS_ITS | Encounter Summary ---
Author Organization [facility] Address [address] [place] [address] Care Team Providers Care Visual Educator Name Role Phone Cuba Solano MD Primary Care Provider [phone] Encounter Details Date Type Department Care Team (Latest Contact Info) Description 05/25/[address] [facility] 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
--- OUTSIDE RECORDS SUMMARY | 2025-04-14 20:34 | XMS_ITS | Encounter Summary ---
Author Organization [facility] Address [address] [place] [address] Care Team Providers Care Gum Machine Filler Name Role Phone Cuba Solano MD Primary Care Provider [phone] Encounter Details Date Type Department Care Team (Latest Contact Info) Description 08/28/[address] 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
--- OUTSIDE RECORDS SUMMARY | 2025-04-14 20:34 | XMS_ITS | Encounter Summary ---
Author Organization [facility] Address [address] [place] [address] Care Team Providers Care Immigration Associate Name Role Phone Cuba Solano MD Primary Care Provider [phone] Encounter Details Date Type Department Care Team (Latest Contact Info) Description 07/05/[address] 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
--- OUTSIDE RECORDS SUMMARY | 2025-04-14 20:34 | XMS_ITS | Encounter Summary ---
Author Organization [facility] Address [address] [place] [address] Care Team Providers Care Client Resolution Specialist Name Role Phone Cuba Solano MD Primary Care Provider [phone] Encounter Details Date Type Department Care Team (Latest Contact Info) Description 07/08/2006 Outpatient Historical [facility] Family Medicine [place] [id number] [address] Keyona Mccloud, CLINIC DIRECTOR NO ADDRESS ON FILE Allergy, Unspecified not Elsewhere Classified (Primary Dx) Social History Tobacco Use Types Packs/Day Years Used Date Smoking Tobacco: Never Assessed Sex and Gender Information Value Date Recorded Sex Assigned at Not on file 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
--- OUTSIDE RECORDS SUMMARY | 2025-04-14 20:34 | XMS_ITS | Continuity of Care Document ---
Author Organization [facility] ([facility]) Address [address] [place] [address] Insurance Providers Payer Plan Claims Address Claims Phone Policy Number Group Number Relation Employer Guarantor Name Guarantor Guarantor Address Guarantor Phone [place] [facility] [address] [address], [place] [id number] tel:[phone] Self Marciano Alonso [address] [place] [id number] [place] [facility] [address], [place] [address] tel:[phone] Self Marciano Alonso [address] [place] [id number] [employer] are Part B Claims Departme nt, [address] [address], [place] [address] tel:[phone] Self Marciano Alonso [address] [place] [id number] Problems Condition ICD9 code ICD10 code SNOMED code Start Date End Date S tatus Urinary tract infection, site not specified N39.0 03/16/2025 Active Infection and inflammatory reaction due to indwelling urethral catheter, subsequent encounter T83.511D 03/16/2025 Active Sarcoidosis, unspecified D86.9 03/22/2025 Active Body mass index (BMI) 38.0-38.9, adult Z68.38 03/28/2025 Active Infection and inflammatory reaction due to indwelling urethral catheter, subsequent encounter T83.511D 04/11/2025 Active Urinary tract infection, site not specified N39.0 04/11/2025 Active Sepsis, unspecified organism A41.9 04/11/2025 Active Bacterial infection, unspecified A49.9 04/11/2025 Active 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 04/11/2025 Active Encounter for adjustment and management of vascular access device Z45.2 04/11/2025 Ac tive 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 and chronic kidney disease with heart failure and stage 1 through stage 4 chronic kidney disease, or unspecified chronic kidney disease I13.0 04/11/2025 Active Unspecified systolic (congestive) heart failure I50.20 04/11/2025 Active Type 2 diabetes mellitus with diabetic chronic kidney disease E11.22 04/11/2025 Active Chronic kidney disease, stage 3 unspecified N18.30 04/11/2025 Activ e Anemia, unspecified D64.9 04/11/2025 A ctive Obstructive sleep apnea (adult) (pediatric) G47.33 04/11/2025 Activ e Diverticulosis of large intestine without perforation or abscess without bleeding K57.30 04/11/2025 Active 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 coli] as the cause of diseases classified elsewhere B96.20 04/11/2025 Acti ve Other viral infections of unspecified site B34.8 04/11/2025 Active Results Test Result Date/Time Value / Unit Interp. Refere nce Range Blood chemistry[[id number]] Glucose [Mass/volume] in Serum or Plasma [2345-7] 04/14/2025 05:26 PM 149 mg/dL N Blood chemistry[[id number]] Glucose [Mass/volume] in Serum or Plasma [2345-7] 04/14/2025 10:13 AM 205 mg/dL N Blood chemistry[[id number]] Glucose [Mass/volume] in Serum or Plasma [2345-7] 04/14/2025 12:54 PM 206 mg/dL N Blood chemistry[[id number]] Glucose [Mass/volume] in Serum or Plasma [2345-7] 04/13/2025 01:44 PM 141 mg/dL N Blood chemistry[[id number]] Glucose [Mass/volume] in Serum or Plasma [2345-7] 04/13/2025 05:23 PM 211 mg/dL N Blood chemistry[[id number]] Glucose [Mass/volume] in Serum or Plasma [2345-7] 04/13/2025 10:15 AM 137 mg/dL N Blood chemistry[[id number]] Glucose [Mass/volume] in Serum or Plasma [2345-7] 04/13/2025 01:14 PM 142 mg/dL N Blood chemistry[[id number]] Glucose [Mass/volume] in Serum or Plasma [2345-7] 04/12/2025 05:20 PM 111 mg/dL N Blood chemistry[[id number]] Glucose [Mass/volume] in Serum or Plasma [2345-7] 04/12/2025 05:32 PM 172 mg/dL N Blood chemistry[[id number]] Glucose [Mass/volume] in Serum or Plasma [2345-7] 04/12/2025 09:26 AM 109 mg/dL N Blood chemistry[[id number]] Glucose [Mass/volume] in Serum or Plasma [2345-7] 04/12/2025 01:35 PM 243 mg/dL N Blood chemistry[[id number]] Glucose [Mass/volume] in Serum or Plasma [2345-7] 04/11/2025 04:02 PM 233 mg/dL N Blood chemistry[[id number]] Glucose [Mass/volume] in Serum or Plasma [2345-7] 04/11/2025 10:25 AM 223 mg/dL N Blood chemistry[[id number]] Glucose [Mass/volume] in Serum or Plasma [2345-7] 04/05/2025 05:13 PM 314 mg/dL N Blood chemistry[[id number]] Glucose [Mass/volume] in Serum or Plasma [2345-7] 04/05/2025 11:41 AM 255 mg/dL N Blood chemistry[[id number]] Glucose [Mass/volume] in Serum or Plasma [2345-7] 04/05/2025 05:03 PM 333 mg/dL N Blood chemistry[[id number]] Glucose [Mass/volume] in Serum or Plasma [2345-7] 04/05/2025 12:57 PM 299 mg/dL N Blood chemistry[[id number]] Glucose [Mass/volume] in Serum or Plasma [2345-7] 04/04/2025 01:54 PM 315 mg/dL N Blood chemistry[[id number]] Glucose [Mass/volume] in Serum or Plasma [2345-7] 04/04/2025 05:07 PM 245 mg/dL N Blood chemistry[[id number]] Glucose [Mass/volume] in Serum or Plasma [2345-7] 04/04/2025 10:08 AM 247 mg/dL N Blood chemistry[[id number]] Glucose [Mass/volume] in Serum or Plasma [2345-7] 04/04/2025 01:06 PM 309 mg/dL N Blood chemistry[[id number]] Glucose [Mass/volume] in Serum or Plasma [2345-7] 04/04/2025 06:17 PM 315 mg/dL N Blood chemistry[[id number]] Glucose [Mass/volume] in Serum or Plasma [2345-7] 04/03/2025 05:29 PM 485 mg/dL N Blood chemistry[[id number]] Glucose [Mass/volume] in Serum or Plasma [2345-7] 04/03/2025 10:09 AM 445 mg/dL N Blood chemistry[[id number]] Glucose [Mass/volume] in Serum or Plasma [2345-7] 04/03/2025 01:02 PM 332 mg/dL N Blood chemistry[[id number]] Glucose [Mass/volume] in Serum or Plasma [2345-7] 04/02/2025 01:58 PM 354 mg/dL N Blood chemistry[[id number]] Glucose [Mass/volume] in Serum or Plasma [2345-7] 04/02/2025 11:49 AM 410 mg/dL N Blood chemistry[[id number]] Glucose [Mass/volume] in Serum or Plasma [2345-7] 04/02/2025 10:14 AM 471 mg/dL N Blood chemistry[[id number]] Glucose [Mass/volume] in Serum or Plasma [2345-7] 04/02/2025 10:12 AM 471 mg/dL N Blood chemistry[[id number]] Glucose [Mass/volume] in Serum or Plasma [2345-7] 04/02/2025 01:40 PM 564 mg/dL N Blood chemistry[[id number]] Glucose [Mass/volume] in Serum or Plasma [2345-7] 04/01/2025 02:42 PM 495 mg/dL N Blood chemistry[[id number]] Glucose [Mass/volume] in Serum or Plasma [2345-7] 04/01/2025 11:10 AM 494 mg/dL N Blood chemistry[[id number]] Glucose [Mass/volume] in Serum or Plasma [2345-7] 04/01/2025 05:13 PM 520 mg/dL N Blood chemistry[[id number]] Glucose [Mass/volume] in Serum or Plasma [2345-7] 04/01/2025 01:16 PM 407 mg/dL N Blood chemistry[[id number]] Glucose [Mass/volume] in Serum or Plasma [2345-7] 03/31/2025 03:02 PM 320 mg/dL N Blood chemistry[[id number]] Glucose [Mass/volume] in Serum or Plasma [2345-7] 03/31/2025 05:07 PM 483 mg/dL N Blood chemistry[[id number]] Glucose [Mass/volume] in Serum or Plasma [2345-7] 03/31/2025 10:51 AM 413 mg/dL N Blood chemistry[[id number]] Glucose [Mass/volume] in Serum or Plasma [2345-7] 03/31/2025 12:44 PM 447 mg/dL N Blood chemistry[[id number]] Glucose [Mass/volume] in Serum or Plasma [2345-7] 03/31/2025 06:12 PM 347 mg/dL N Blood chemistry[[id number]] Glucose [Mass/volume] in Serum or Plasma [2345-7] 03/30/2025 05:13 PM 456 mg/dL N Blood chemistry[[id number]] Glucose [Mass/volume] in Serum or Plasma [2345-7] 03/30/2025 10:43 AM 450 mg/dL N Blood chemistry[[id number]] Glucose [Mass/volume] in Serum or Plasma [2345-7] 03/30/2025 01:01 PM 407 mg/dL N Blood chemistry[[id number]] Glucose [Mass/volume] in Serum or Plasma [2345-7] 03/29/2025 12:39 PM 400 mg/dL N Blood chemistry[[id number]] Glucose [Mass/volume] in Serum or Plasma [2345-7] 03/29/2025 11:30 AM 451 mg/dL N Blood chemistry[[id number]] Glucose [Mass/volume] in Serum or Plasma [2345-7] 03/29/2025 05:15 PM 506 mg/dL N Blood chemistry[[id number]] Glucose [Mass/volume] in Serum or Plasma [2345-7] 03/29/2025 01:28 PM 547 mg/dL N Blood chemistry[[id number]] Glucose [Mass/volume] in Serum or Plasma [2345-7] 03/28/2025 01:38 PM 400 mg/dL N Blood chemistry[[id number]] Glucose [Mass/volume] in Serum or Plasma [2345-7] 03/28/2025 12:30 PM 543 mg/dL N Blood chemistry[[id number]] Glucose [Mass/volume] in Serum or Plasma [2345-7] 03/27/2025 04:20 PM 400 mg/dL N Blood chemistry[[id number]] Glucose [Mass/volume] in Serum or Plasma [2345-7] 03/27/2025 05:24 PM 383 mg/dL N Blood chemistry[[id number]] Glucose [Mass/volume] in Serum or Plasma [2345-7] 03/27/2025 10:30 AM 441 mg/dL N Blood chemistry[[id number]] Glucose [Mass/volume] in Serum or Plasma [2345-7] 03/27/2025 02:22 PM 354 mg/dL N Blood chemistry[[id number]] Glucose [Mass/volume] in Serum or Plasma [2345-7] 03/26/2025 03:17 PM 400 mg/dL N Blood chemistry[[id number]] Glucose [Mass/volume] in Serum or Plasma [2345-7] 03/26/2025 10:24 AM 284 mg/dL N Blood chemistry[[id number]] Glucose [Mass/volume] in Serum or Plasma [2345-7] 03/26/2025 05:13 PM 519 mg/dL N Blood chemistry[[id number]] Glucose [Mass/volume] in Serum or Plasma [2345-7] 03/26/2025 12:22 PM 381 mg/dL N Blood chemistry[[id number]] Glucose [Mass/volume] in Serum or Plasma [2345-7] 03/25/2025 05:40 PM 387 mg/dL N Blood chemistry[[id number]] Glucose [Mass/volume] in Serum or Plasma [2345-7] 03/25/2025 03:11 PM 314 mg/dL N Blood chemistry[[id number]] Glucose [Mass/volume] in Serum or Plasma [2345-7] 03/25/2025 08:05 AM 471 mg/dL N Blood chemistry[[id number]] Glucose [Mass/volume] in Serum or Plasma [2345-7] 03/24/2025 03:08 PM 389 mg/dL N Blood chemistry[[id number]] Glucose [Mass/volume] in Serum or Plasma [2345-7] 03/24/2025 11:20 AM 383 mg/dL N Blood chemistry[[id number]] Glucose [Mass/volume] in Serum or Plasma [2345-7] 03/24/2025 06:54 PM 302 mg/dL N Blood chemistry[[id number]] Glucose [Mass/volume] in Serum or Plasma [2345-7] 03/24/2025 02:47 PM 403 mg/dL N Blood chemistry[[id number]] Glucose [Mass/volume] in Serum or Plasma [2345-7] 03/24/2025 07:29 AM 212 mg/dL N Blood chemistry[[id number]] Glucose [Mass/volume] in Serum or Plasma [2345-7] 03/23/2025 05:34 PM 297 mg/dL N Blood chemistry[[id number]] Glucose [Mass/volume] in Serum or Plasma [2345-7] 03/23/2025 10:52 AM 269 mg/dL N Blood chemistry[[id number]] Glucose [Mass/volume] in Serum or Plasma [2345-7] 03/23/2025 01:19 PM 333 mg/dL N Blood chemistry[[id number]] Glucose [Mass/volume] in Serum or Plasma [2345-7] 03/22/2025 04:50 PM 320 mg/dL N Blood chemistry[[id number]] Glucose [Mass/volume] in Serum or Plasma [2345-7] 03/22/2025 05:58 PM 295 mg/dL N Blood chemistry[[id number]] Glucose [Mass/volume] in Serum or Plasma [2345-7] 03/22/2025 10:45 AM 204 mg/dL N Blood chemistry[[id number]] Glucose [Mass/volume] in Serum or Plasma [2345-7] 03/22/2025 01:01 PM 294 mg/dL N Blood chemistry[[id number]] Glucose [Mass/volume] in Serum or Plasma [2345-7] 03/21/2025 01:35 PM 400 mg/dL N Blood chemistry[[id number]] Glucose [Mass/volume] in Serum or Plasma [2345-7] 03/21/2025 05:10 PM 321 mg/dL N Blood chemistry[[id number]] Glucose [Mass/volume] in Serum or Plasma [2345-7] 03/21/2025 10:36 AM 356 mg/dL N Blood chemistry[[id number]] Glucose [Mass/volume] in Serum or Plasma [2345-7] 03/21/2025 01:14 PM 278 mg/dL N Blood chemistry[[id number]] Glucose [Mass/volume] in Serum or Plasma [2345-7] 03/20/2025 02:11 PM 384 mg/dL N Blood chemistry[[id number]] Glucose [Mass/volume] in Serum or Plasma [2345-7] 03/20/2025 10:41 AM 309 mg/dL N Blood chemistry[[id number]] Glucose [Mass/volume] in Serum or Plasma [2345-7] 03/20/2025 11:15 AM 352 mg/dL N Blood chemistry[[id number]] Glucose [Mass/volume] in Serum or Plasma [2345-7] 03/19/2025 01:21 PM 400 mg/dL N Blood chemistry[[id number]] Glucose [Mass/volume] in Serum or Plasma [2345-7] 03/19/2025 04:59 PM 252 mg/dL N Blood chemistry[[id number]] Glucose [Mass/volume] in Serum or Plasma [2345-7] 03/19/2025 10:13 AM 226 mg/dL N Blood chemistry[[id number]] Glucose [Mass/volume] in Serum or Plasma [2345-7] 03/19/2025 12:23 PM 204 mg/dL N Blood chemistry[[id number]] Glucose [Mass/volume] in Serum or Plasma [2345-7] 03/18/2025 05:01 PM 202 mg/dL N Blood chemistry[[id number]] Glucose [Mass/volume] in Serum or Plasma [2345-7] 03/18/2025 11:19 AM 251 mg/dL N Blood chemistry[[id number]] Glucose [Mass/volume] in Serum or Plasma [2345-7] 03/18/2025 05:22 PM 217 mg/dL N Allergies, adverse reactions, alerts No known allergies and adverse reactions Medications Medication Instructions Route Dosage Frequency Start Date Stop Date Indications Status amiodarone 400 mg tablet (amiodarone) 1 tab, oral, Once A Day oral 1.0 1.0 d 04/06 Active Daily-Ciarra (with folic acid) (multivitamin with folic acid) 400 mcg tablet (Daily-Ciarra (with folic acid) (multivitamin with folic acid)) 1 tab, oral, Once A Day, TI for Niva Plus oral 1.0 1.0 d 04/06 Active GenTeal Tears Severe(petrolat ) (white petrolatum-mine ral oil) 94-3 % ointment (GenTeal Tears Severe(petrolat ) (white petrolatum-mine ral oil)) 1 neelima, both eyes, At Bedtime 1.0 04/06 Active bumetanide 1 mg tablet (bumetanide) 1 [...] to notify family. oral 1.0 1.0 d 04/06 Active bumetanide 1 mg tablet (bumetanide) 3 tabs (3 mg), oral, Twice A Day, may give 1mg extra if 2 lbs gain in one day or 5 lbs in one week, report weight gain of 3 lbs/day or 5 lbs/ week oral 1.0 12.0 h 04/06 Active Eliquis (apixaban) 5 mg tablet (Eliquis (apixaban)) 1 tab, oral, Twice A Day oral 1.0 12.0 h 03/22 Active Gold Castillo Medicated Body (menthol) 0.8 % powder (Gold Castillo Medicated Body (menthol)) as directed, topical, Every Shift, Cleanse abdominal folds ensuring completely dry then apply to entire abdominal folds and under arm q shift topical 1.0 8.0 h 04/06 Active insulin aspart U-100 100 unit/mL (3 mL) insulin pen (insulin aspart U-100) 15 units, subcutaneous, Once - One Time subcutaneo us 1.0 04/02 Active insulin aspart U-100 100 unit/mL (3 mL) insulin pen (insulin aspart U-100) 45, subcutaneous, With Meals subcutaneo us 1.0 04/05 Active insulin degludec 100 unit/mL (3 mL) insulin pen (insulin degludec) 105, subcutaneous, At Bedtime subcutaneo us 1.0 04/05 Active brimonidine 0.2 % drops (brimonidine) 1 drop, ophthalmic (eye), Twice A Day, both eyes 1.0 12.0 h 04/03 Active insulin aspart U-100 100 unit/mL (3 mL) insulin pen (insulin aspart U-100) 60, subcutaneous, With Meals subcutaneo us 1.0 04/06 Active insulin degludec 100 unit/mL (3 mL) insulin pen (insulin degludec) 120, subcutaneous, At Bedtime subcutaneo us 1.0 12/04/ 2025 12/05 /2025 Active Ozempic (semaglutide) 2 mg/dose (8 mg/3 mL) pen injector (Ozempic (semaglutide)) 2mg, subcutaneous, Once A Day on Mon subcutaneo us 1.0 1.0 d 04/06 Active brinzolamide 1 % drops,suspensio n (brinzolamide) 1 drop, ophthalmic (eye), Twice A Day, both eyes 1.0 12.0 h 04/06 Active latanoprost 0.005 % drops (latanoprost) 1 drop, ophthalmic (eye), At Bedtime, both eyes 1.0 04/06 Active Afluria 2430-2483 (3yr up)(PF) (flu vac [id number] 36mos up(pf)) 45 mcg (15 mcg x 3)/0.5 m syringe (Afluria (3yr up)(PF) (flu vac [id number] 36mos up(pf))) 0.5ml, intramuscular , Once - One Time intramuscu lar 1.0 04/06 Active albuterol sulfate 2.5 mg /3 mL (0.083 %) solution for nebulization (albuterol sulfate) 1, inhalation, Every 6 Hours inhalation 1.0 6.0 h 04/06 Active amitriptyline 25 mg tablet (amitriptyline) 1 tab, oral, At Bedtime, Give 1 tab po at HS x 2 weeks then DC oral 1.0 04/06 Active Arexvy (PF) (rsvpref3 antigen-as01e (pf)) 120 mcg/0.5 mL suspension for reconstitution (Arexvy (PF) (rsvpref3 antigen-as01e (pf))) 0.5ml, intramuscular , Once - One Time intramuscu lar 1.0 04/06 Active azithromycin 250 mg tablet (azithromycin) 1 tab, oral, Once A Day oral 1.0 1.0 d 09/14/ 2025 12/05 /2025 Active bumetanide 1 mg tablet (bumetanide) 1, oral, Once A Day, 1 daily x 1 week at 2 pm do not TI time oral 1.0 1.0 d 04/06 Active cefdinir 300 mg capsule (cefdinir) 1 capsule, oral, Twice A Day oral 1.0 12.0 h 04/06 Active ceftriaxone 1 gram recon soln (ceftriaxone) 1, injection, Once A Day 1.0 1.0 d 04/06 Active cephalexin 500 mg tablet (cephalexin) 1 tab, oral, Every 8 Hours, For 10 days oral 1.0 8.0 h 04/06 Active doxycycline hyclate 100 mg tablet (doxycycline hyclate) 1, oral, Twice A Day oral 1.0 12.0 h 04/06 Active Eliquis (apixaban) 5 mg tablet (Eliquis (apixaban)) 1, oral, Twice A Day oral 1.0 12.0 h 04/06 Active Eliquis (apixaban) 5 mg tablet (Eliquis (apixaban)) 1, oral, Twice A Day oral 1.0 12.0 h 04/06 Active ertapenem 1 gram recon soln (ertapenem) 1 gram, injection, At Bedtime, clinical indication: UTI 1.0 04/06 Active hydrocodone-gabby taminophen 5-325 mg tablet (hydrocodone-ac etaminophen) 1, oral, Every 4 Hours - PRN (x 3), Q 4 hours prn pain not to exceed 3 tablets daily oral 1.0 4.0 h 04/06 Active insulin aspart U-100 100 unit/mL (3 mL) insulin pen (insulin aspart U-100) 15 units, subcutaneous, Once - One Time subcutaneo us 1.0 04/06 Active linezolid 600 mg tablet (linezolid) 1, oral, Twice A Day oral 1.0 12.0 h 04/06 Active Macrobid (nitrofurantoin monohyd/m-cryst ) 100 mg capsule (Macrobid (nitrofurantoin monohyd/m-cryst )) 1, oral, Twice A Day, Macrobid 100mg PO BID X 7 days for UTI oral 1.0 12.0 h 04/06 Active metolazone 5 mg tablet (metolazone) 1 tab, oral, Once - One Time oral 1.0 04/06 Active metolazone 5 mg tablet (metolazone) 1 tab, oral, Once A Day oral 1.0 1.0 d 04/06 Active metoprolol tartrate 100 mg tablet (metoprolol tartrate) 1, oral, Twice A Day oral 1.0 12.0 h 04/06 Active Ozempic (semaglutide) 0.25 mg or 0.5 mg (2 mg/3 mL) pen injector (Ozempic (semaglutide)) 0.5mg, subcutaneous, Once A Day [facility] 1.0 1.0 d 04/06 Active Ozempic (semaglutide) 0.25 mg or 0.5 mg (2 mg/3 mL) pen injector (Ozempic (semaglutide)) 0.5mg, subcutaneous, Once A Day on [facility] 1.0 1.0 d 04/06 Active potassium chloride 20 mEq tablet extended release (potassium chloride) 2, oral, Once - One Time oral 1.0 04/06 Active potassium chloride 20 mEq tablet extended release (potassium chloride) 2 tab= 40 meq, oral, Four Times A Day, 2 tab= 40 meq q 4 hours x 4 doses oral 1.0 6.0 h 04/06 Active prednisone 20 mg tablet (prednisone) 1, oral, Once A Day oral 1.0 1.0 d 04/06 Active prednisone 20 mg tablet (prednisone) 2, oral, Once A Day oral 1.0 1.0 d 04/06 Active prednisone 20 mg tablet (prednisone) 1, oral, Once A Day oral 1.0 1.0 d 04/06 Active prednisone 10 mg tablet (prednisone) 1, oral, Once A Day oral 1.0 1.0 d 04/06 Active prednisone 20 mg tablet (prednisone) 1, oral, Once A Day oral 1.0 1.0 d 04/06 Active prednisone 20 mg tablet (prednisone) 1 tab, oral, Once A Day oral 1.0 1.0 d 04/06 Active TobraDex (tobramycin-dex amethasone) 0.3-0.1 % ointment (TobraDex (tobramycin-dex amethasone)) As directed, ophthalmic (eye), Three Times A Day, Apply to right eye three times daily 1.0 8.0 h 04/06 Active TobraDex (tobramycin-dex amethasone) 0.3-0.1 % ointment (TobraDex (tobramycin-dex amethasone)) as directed, ophthalmic (eye), Three Times A Day, Right eye: Apply 3x's daily 1.0 8.0 h 04/06 Active Tubersol (tuberculin ppd) 5 tub. unit /0.1 mL solution (Tubersol (tuberculin ppd)) 0.1ml, intradermal, Once - One Time, Administer the morning after admission intraderma l 1.0 04/06 Active Tubersol (tuberculin ppd) 5 tub. unit /0.1 mL solution (Tubersol (tuberculin ppd)) 0.1ml, intradermal, Once - One Time, Administer on the day shift intraderma l 1.0 04/06 Active acetaminophen 500 mg tablet (acetaminophen) 1 tab, oral, Every 6 Hours - PRN, for pain or fever oral 1.0 6.0 h 2024 Active albuterol sulfate 2.5 mg /3 mL (0.083 %) solution for nebulization (albuterol sulfate) 1 neb, inhalation, Every 6 Hours - PRN, for sob or wheezing inhalation 1.0 6.0 h 2024 Active allopurinol 300 mg tablet (allopurinol) 1 tab, oral, Once A Day oral 1.0 1.0 d 2024 Active amiodarone 200 mg tablet (amiodarone) 1 tab, oral, Once A Day oral 1.0 1.0 d 2024 Active atorvastatin 20 mg tablet (atorvastatin) 1 tab, oral, Once A Day oral 1.0 1.0 d 2024 Active Breztri Aerosphere (budesonide-gly copyr-formotero l) 160-9-4.8 mcg/actuation HFA aerosol inhaler (Breztri Aerosphere (budesonide-gly copyr-formotero l)) 2 inh, inhalation, Twice A Day, rinse mouth out after use and spit inhalation 1.0 12.0 h 2024 Active brinzolamide 1 % drops,suspensio n (brinzolamide) 1 drop, ophthalmic (eye), Twice A Day 1.0 12.0 h 2024 Active bumetanide 1 mg tablet (bumetanide) 1 tab, oral, Once A Day - PRN, for weight gain of 2lbs in 24hrs or 5lbs in a week oral 1.0 1.0 d 2024 Active bumetanide 1 mg tablet (bumetanide) 3 tabs (3mg), oral, Twice A Day oral 1.0 12.0 h 2024 Active cholecalciferol (vitamin D3) 25 mcg (1,000 unit) tablet (cholecalcifero l (vitamin D3)) 1 tab, oral, Once A Day oral 1.0 1.0 d 2024 Active Daily-Ciarra (with folic acid) (multivitamin with folic acid) 400 mcg tablet (Daily-Ciarra (with folic acid) (multivitamin with folic acid)) 1 tab, oral, Once A Day oral 1.0 1.0 d 2024 Active diltiazem HCl 180 mg capsule,extende d release 24 hr (diltiazem HCl) 1 cap, oral, Once A Day oral 1.0 1.0 d 2024 Active Dulcolax (bisacodyl) (bisacodyl) 10 mg suppository (Dulcolax (bisacodyl) (bisacodyl)) 1 suppository, rectal, Once A Day - PRN, if no bm x 3 days rectal 1.0 1.0 d 2024 Active Eliquis (apixaban) 5 mg tablet (Eliquis (apixaban)) 1 tab, oral, Twice A Day oral 1.0 12.0 h 2024 Active ertapenem 1 gram recon soln (ertapenem) 1 gram, intravenous, Once A Day, through 04/23 intravenou s 1.0 1.0 d 04/23 Active fluticasone propionate 50 mcg/actuation spray,suspensio n (fluticasone propionate) 1 spray, nasal, Twice A Day nasal 1.0 12.0 h 2024 Active fosfomycin tromethamine 3 gram packet (fosfomycin tromethamine) 1 packet, oral, Once A Day Every 3 Days, use as directed oral 1.0 1.0 d 04/11 Active GenTeal Tears Severe(petrolat ) (white petrolatum-mine ral oil) 94-3 % ointment (GenTeal Tears Severe(petrolat ) (white petrolatum-mine ral oil)) 1 neelima, both eyes, At Bedtime 1.0 2024 Active Gold Castillo Medicated Body (menthol) 0.8 % powder (Gold Castillo Medicated Body (menthol)) 1 neelima, topical, Twice A Day - PRN, apply to abdominal folds and under arms after cleansing topical 1.0 12.0 h 04/11 Active hydrocodone-gabby taminophen 5-325 mg tablet (hydrocodone-ac etaminophen) 1 tab, oral, Every 8 Hours - PRN, pain exempt R52 oral 1.0 8.0 h 2024 Active insulin aspart U-100 100 unit/mL (3 mL) insulin pen (insulin aspart U-100) 10 units, subcutaneous, With Meals subcutaneo us 1.0 04/12 Active latanoprost 0.005 % drops (latanoprost) 1 drop, ophthalmic (eye), At Bedtime 1.0 2024 Active lidocaine 4 % adhesive patch,medicated (lidocaine) 1 patch, topical, Twice A Day, ON in the AM, OFF in the PM topical 1.0 12.0 h 2024 Active lubiprostone 8 mcg capsule (lubiprostone) 1 cap, oral, Twice A Day oral 1.0 12.0 h 2024 Active metoclopramide HCl 10 mg tablet (metoclopramide HCl) 1 tab, oral, Four Times A Day oral 1.0 6.0 h 04/13 Active metoprolol tartrate 100 mg tablet (metoprolol tartrate) 1 tab, oral, Twice A Day oral 1.0 12.0 h 2024 Active montelukast 10 mg tablet (montelukast) 1 tab, oral, At Bedtime oral 1.0 2024 Active Normal Saline Flush (sodium chloride 0.9 %) - syringe (Normal Saline Flush (sodium chloride 0.9 %)) 3ml, injection, Every Shift, Flush IV with 5ml NS before and after use(SASH) 1.0 8.0 h 2024 Active nystatin 100,000 unit/gram cream (nystatin) as directed, topical, Every Shift, Apply to sacrum and scrotum q shift till healed topical 1.0 8.0 h 2024 Active omeprazole 40 mg capsule,delayed release(DR/EC) (omeprazole) 1 cap, oral, Twice A Day oral 1.0 12.0 h 2024 Active ondansetron HCl 8 mg tablet (ondansetron HCl) 1 tab, oral, Every 6 Hours - PRN, for n/v, TI for ODT oral 1.0 6.0 h 2024 Active Ozempic (semaglutide) 1 mg/dose (4 mg/3 mL) pen injector (Ozempic (semaglutide)) 1mg, subcutaneous, Once a Day on Mon subcutaneo us 1.0 1.0 d 04/12 Active potassium chloride 20 mEq tablet,ER particles/cryst als (potassium chloride) 1 tab, oral, Once A Day oral 1.0 1.0 d 2024 Active pregabalin 50 mg capsule (pregabalin) 1 cap, oral, Three Times A Day, exempt r52 oral 1.0 8.0 h 2024 Active tamsulosin 0.4 mg capsule (tamsulosin) 1 cap, oral, Twice A Day oral 1.0 12.0 h 2024 Active Tresiba FlexTouch U-100 (insulin degludec) 100 unit/mL (3 mL) insulin pen (Tresiba FlexTouch U-100 (insulin degludec)) 10 units, subcutaneous, At Bedtime subcutaneo us 1.0 04/12 Active triamcinolone acetonide 0.1 % cream (triamcinolone acetonide) 1 neelima, topical, Twice A Day - PRN, apply to ears, for irritation topical 1.0 12.0 h 2024 Active insulin aspart U-100 100 unit/mL (3 mL) insulin pen (insulin aspart U-100) Per Sliding Scale, subcutaneous, Before Meals and At Bedtime, If Blood Sugar is less than 60, call MD.If Blood Sugar is 150 to 200, give 4 Units.If Blood Sugar is 201 to 250, give 6 Units.If Blood Sugar is 251 to 300, give 10 Units.If Blood Sugar is 301 to 350, give 12 Units.If Blood Sugar is 351 to 400, give 15 Units.If Blood Sugar is greater than 400, give 15 Units.If Blood Sugar is greater than 400, call ., BS less than 60 or greater than 400 and symptomatic, call [facility] 1.0 2024 Active insulin degludec 100 unit/mL (3 mL) insulin pen (insulin degludec) 120, subcutaneous, At Bedtime subcutaneo us 1.0 04/13 Active Ozempic (semaglutide) 2 mg/dose (8 mg/3 mL) pen injector (Ozempic (semaglutide)) 2mg, subcutaneous, Once A Day on [facility] 1.0 1.0 d 2024 Type 2 diabetes mellitus with diabetic chronic kidney disease Active insulin degludec 100 unit/mL solution (insulin degludec) 120 units, subcutaneous, At Bedtime [facility] us 1.0 2024 Active Vital Signs Date Vital Result Comment 03/18/2025 11:03 PM Oxygen Saturation (24597-8) 95 % 03/19/2025 06:15 AM Body Weight (02198-5) 288.6 [lb_av ] Body Mass Index (24265-4) 39.14 kg/m2 03/19/2025 10:47 AM Oxygen Saturation (35015-8) 99 % 03/20/2025 12:07 AM Oxygen Saturation (50403-5) 98 % 03/20/2025 07:21 AM Oxygen Saturation (95389-3) 97 % 03/20/2025 07:25 AM Temperature (8310-5) 98.2 [degF] 03/21/2025 07:14 AM Body Weight (98754-2) 287 [lb_av] Body Mass Index (06860-5) 38.92 kg/m2 03/21/2025 07:15 AM Temperature (8310-5) 98.6 [degF] 03/21/2025 08:21 AM Temperature (8310-5) 98.1 [degF] Oxygen Saturation (93082-5) 98 % Respiratory Rate (9279-1) 15 /min Heart Rate (8867-4) 76 /min Blood Pressure Systolic (8480-6) 102 mm[Hg] Blood Pressure Diastolic (8462-4) 58 mm[Hg] 03/22/2025 07:33 AM Oxygen Saturation (56218-9) 98 % 03/22/2025 07:02 AM Temperature (8310-5) 98.5 [degF] 03/23/2025 07:20 AM Temperature (8310-5) 97.8 [degF] 03/23/2025 02:44 PM Oxygen Saturation (35543-9) 96 % 03/24/2025 08:55 AM Oxygen Saturation (05095-0) 95 % 03/24/2025 01:30 AM Oxygen Saturation (46455-8) 96 % 03/24/2025 11:01 PM Oxygen Saturation (48980-7) 95 % 03/25/2025 09:12 AM Oxygen Saturation (92276-1) 98 % 03/25/2025 05:20 PM Temperature (8310-5) 98 [degF] 03/25/2025 11:41 PM Oxygen Saturation (69027-6) 95 % 03/26/2025 12:25 PM Oxygen Saturation (43069-2) 98 % 03/26/2025 09:18 PM Oxygen Saturation (86298-0) 97 % 03/27/2025 08:21 AM Oxygen Saturation (97729-6) 98 % 03/27/2025 07:38 AM Temperature (8310-5) 98.1 [degF] 03/27/2025 04:32 PM Temperature (8310-5) 97.8 [degF] 03/27/2025 06:37 PM Oxygen Saturation (85872-2) 97 % 03/28/2025 09:46 AM Temperature (8310-5) 97.7 [degF] Oxygen Saturation (10864-7) 99 % Respiratory Rate (9279-1) 15 /min Heart Rate (8867-4) 108 /min Blood Pressure Systolic (8480-6) 110 mm[Hg] Blood Pressure Diastolic (8462-4) 58 mm[Hg] 03/28/2025 09:47 AM Body Weight (29406-9) 287 [lb_av] Body Mass Index (83195-8) 38.92 kg/m2 03/29/2025 07:28 AM Temperature (8310-5) 98 [degF] 03/28/2025 11:42 PM Oxygen Saturation (82462-4) 97 % 03/29/2025 07:26 AM Oxygen Saturation (52026-5) 99 % 03/29/2025 03:36 PM Temperature (8310-5) 98.2 [degF] 03/29/2025 07:44 PM Oxygen Saturation (91996-1) 97 % 03/30/2025 07:00 AM Oxygen Saturation (13125-2) 100 % 03/30/2025 07:01 AM Temperature (8310-5) 98.6 [degF] 03/31/2025 12:12 AM Oxygen Saturation (49030-9) 95 % 03/31/2025 06:45 AM Temperature (8310-5) 98.4 [degF] 03/31/2025 06:43 AM Oxygen Saturation (41588-3) 99 % 03/31/2025 11:44 PM Oxygen Saturation (40310-5) 95 % 04/01/2025 07:14 AM Oxygen Saturation (50905-2) 98 % 04/01/2025 08:28 PM Oxygen Saturation (79866-5) 95 % 04/02/2025 11:34 AM Body Weight (55047-4) 287 [lb_av] Body Mass Index (80596-6) 38.92 kg/m2 04/02/2025 11:27 AM Oxygen Saturation (41180-3) 99 % 04/02/2025 08:07 PM Oxygen Saturation (82518-9) 93 % 04/03/2025 07:02 AM Temperature (8310-5) 98.6 [degF] 04/03/2025 07:21 AM Oxygen Saturation (85782-1) 98 % 04/04/2025 08:04 AM Oxygen Saturation (93928-3) 98 % 04/04/2025 07:05 AM Body Weight (33032-5) 283 [lb_av] Body Mass Index (62951-0) 38.38 kg/m2 04/04/2025 07:07 AM Temperature (8310-5) 98 [degF] 04/04/2025 08:05 AM Respiratory Rate (9279-1) 18 /min Heart Rate (8867-4) 103 /min Blood Pressure Systolic (8480-6) 137 mm[Hg] Blood Pressure Diastolic (8462-4) 55 mm[Hg] 04/04/2025 08:16 PM Oxygen Saturation (38534-8) 97 % 04/04/2025 08:14 PM Respiratory Rate (9279-1) 18 /min 04/04/2025 08:13 PM Temperature (8310-5) 96.2 [degF] Heart Rate (8867-4) 65 /min 04/04/2025 08:15 PM Blood Pressure Systolic (8480-6) 1 23 mm[Hg] Blood Pressure Diastolic (8462-4) 67 mm[Hg] 04/05/2025 06:56 AM Oxygen Saturation (19613-5) 100 % 04/05/2025 03:49 PM Temperature (8310-5) 97.5 [degF] 04/05/2025 07:42 PM Oxygen Saturation (81301-6) 95 % 04/11/2025 04:30 PM Temperature (8310-5) 98 [degF] Oxygen Saturation (93227-3) 95 % Respiratory Rate (9279-1) 28 /min Heart Rate (8867-4) 112 /min Blood Pressure Systolic (8480-6) 156 mm[Hg] Blood Pressure Diastolic (8462-4) 83 mm[Hg] 04/11/2025 01:49 PM Temperature (8310-5) 97.9 [degF] Oxygen Saturation (74063-0) 93 % Respiratory Rate (9279-1) 28 /min Heart Rate (8867-4) 102 /min Blood Pressure Systolic (8480-6) 99 mm[Hg] Blood Pressure Diastolic (8462-4) 61 mm[Hg] 04/12/2025 12:11 AM Temperature (8310-5) 98 [degF] Oxygen Saturation (52962-7) 99 % Respiratory Rate (9279-1) 15 /min Heart Rate (8867-4) 75 /min Blood Pressure Systolic (8480-6) 125 mm[Hg] Blood Pressure Diastolic (8462-4) 79 mm[Hg] 04/12/2025 07:52 AM Oxygen Saturation (44311-0) 99 % Respiratory Rate (9279-1) 20 /min Heart Rate (8867-4) 80 /min Blood Pressure Systolic (8480-6) 113 mm[Hg] Blood Pressure Diastolic (8462-4) 60 mm[Hg] 04/12/2025 07:33 AM Temperature (8310-5) 98.5 [degF] 04/12/2025 11:27 PM Temperature (8310-5) 96.9 [degF] Oxygen Saturation (91782-0) 91 % Respiratory Rate (9279-1) 12 /min Heart Rate (8867-4) 86 /min Blood Pressure Systolic (8480-6) 120 mm[Hg] Blood Pressure Diastolic (8462-4) 67 mm[Hg] 04/13/2025 07:14 AM Temperature (8310-5) 98.2 [degF] Oxygen Saturation (35643-9) 93 % Respiratory Rate (9279-1) 16 /min Heart Rate (8867-4) 82 /min Blood Pressure Systolic (8480-6) 122 mm[Hg] Blood Pressure Diastolic (8462-4) 60 mm[Hg] 04/14/2025 06:55 AM Temperature (8310-5) 97.7 [degF] Oxygen Saturation (99167-1) 98 % Respiratory Rate (9279-1) 18 /min Heart Rate (8867-4) 98 /min Blood Pressure Systolic (8480-6) 111 mm[Hg] Blood Pressure Diastolic (8462-4) 57 mm[Hg] 04/14/2025 01:44 AM Temperature (8310-5) 97 [degF] Oxygen Saturation (45893-9) 95 % Respiratory Rate (9279-1) 16 /min Heart Rate (8867-4) 80 /min Blood Pressure Systolic (8480-6) 132 mm[Hg] Blood Pressure Diastolic (8462-4) 88 mm[Hg] 04/14/2025 03:01 PM Body Weight (22163-3) 286 [lb_av] Body Mass Index (18809-7) 38.78 kg/m2 04/14/2025 04:13 PM Temperature (8310-5) 98 [degF] Social History No smoking Hx information available Encounters Type CPT Code Date Location Provider Indication s encounter report 02/24/2024 05:2 5 PM - 02/09/2025 11:54 AM Chris Parker DO 01 encounter report 02/24/2024 05:2 5 PM - 03/13/2025 05:16 AM Chris Parker DO encounter report 02/24/2024 05:2 5 PM - 04/06/2025 05:15 AM Chris Parker DO
--- OUTSIDE RECORDS SUMMARY | 2025-04-14 20:34 | XMS_ITS | Encounter Summary ---
Author Organization [facility] Address [address] [place] [address] Care Team Providers Care Scroll Assembler Name Role Phone Cuba Solano MD Primary Care Provider [phone] [phone] Encounter Details Date Type Department Care Team (Late st Contact Info) Description 08/04/2005 Outpatient Historical [facility] Family Medicine [place] [address] [address] Social History Tobacco Use Types Packs/Day Years Used Date Smoking Tobacco: Never Assessed Sex and Gender Information Value Date Recorded Sex Assigned at Not on file Legal Sex Male 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
--- OUTSIDE RECORDS SUMMARY | 2025-04-14 20:34 | XMS_ITS | Encounter Summary ---
Author Organization [facility] Address [address] [place] [address] Care Team Providers Care Building Maintenance Repairer Name Role Phone Cuba Solano MD Primary Care Provider [phone] [phone] Encounter Details Date Type Department Care Team (Latest Contact Info) Description 07/30/2005 Outpatient Historical [facility] Family Medicine [place] [address] [address] Keyona Mccloud, LUCIEN NO ADDRESS ON FILE Unspecified Otitis Media (Primary Dx) Social History Tobacco Use Types Packs/Day Years Used Date Smoking Tobacco: Never Assessed Sex and Gender Information Value Date Recorded Sex Assigned at Not on file Legal Sex Male 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
--- OUTSIDE RECORDS SUMMARY | 2025-04-14 20:34 | XMS_ITS | Encounter Summary ---
Author Organization [facility] Address [address] [place] [address] Care Team Providers Care Flash Developer Name Role Phone Cuba Solano MD Primary Care Provider [phone] [phone] Encounter Details Date Type Department Care Team (Latest Contact Info) Description 12/10/2004 Outpatient Historical [facility] Orthopedics- 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
--- OUTSIDE RECORDS SUMMARY | 2025-04-14 20:34 | XMS_ITS | Encounter Summary ---
Author Organization [facility] Address [address] [place] [address] Care Team Providers Care Canvas Cutter Hand Name Role Phone Cuba Solano MD Primary Care Provider [phone] [phone] Encounter Details Date Type Department Care Team (Latest Contact Info) Description 03/16/[address] [facility] Orthopedics- 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
--- OUTSIDE RECORDS SUMMARY | 2025-04-14 20:34 | XMS_ITS | Encounter Summary ---
Author Organization [facility] Address [address] [place] [address] Care Team Providers Care Software Engineer Web Services Name Role Phone Cuba Solano MD Primary Care Provider [phone] [phone] Encounter Details Date Type Department Care Team (Latest Contact Info) Description 01/18/2006 [facility] 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
--- OUTSIDE RECORDS SUMMARY | 2025-04-14 20:34 | XMS_ITS | Encounter Summary ---
Author Organization [facility] Address [address] [place] [address] Care Team Providers Care Filament Cutter Name Role Phone Cuba Solano MD Primary Care Provider [phone] [phone] Encounter Details Date Type Department Care Team (Latest Contact Info) Description 03/05/2006 Outpatient Historical [facility] Family Medicine [place] [address] [address] Keyona Mccloud, LUCIEN NO ADDRESS ON FILE Unspecified Essential Hypertension (Primary Dx); Edema Social History Tobacco Use Types Packs/Day Years Used Date Smoking Tobacco: Never Assessed Sex and Gender Information Value Date Recorded Sex Assigned at Not on file Legal 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
--- OUTSIDE RECORDS SUMMARY | 2025-04-14 20:34 | XMS_ITS | Encounter Summary ---
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
--- OUTSIDE RECORDS SUMMARY | 2025-04-14 20:34 | XMS_ITS | Encounter Summary ---
Author Organization [facility] Address [address] [place] [address] Care Team Providers Care Rubber Calender Helper Name Role Phone Cuba Solano MD Primary Care Provider [phone] [phone] Encounter Details Date Type Department Care Team (Latest Contact Info) Description 04/05/2006 [facility] 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
--- OUTSIDE RECORDS SUMMARY | 2025-04-14 20:34 | XMS_ITS | Encounter Summary ---
Author Organization [facility] Address [address] [place] [address] Care Team Providers Care Swing Type Lathe Operator Name Role Phone Cuba Solano MD Primary Care Provider [phone] [phone] Encounter Details Date Type Department Care Team (Latest Contact Info) Description 02/06/2005 Outpatient Historical [facility] Family Medicine [place] [facility] [address] [address] Huey Upton Jr., MD [address] [place] [address] [address] [facility] [address] [place] [address] HAIR DISEASES NEC (Primary Dx); DIABETES MELLITUS TYPE II-UNCOMPL (CMS/FORMERLY [facility]); Dysfunct eustachian tube; Vaccine for influenza Social History Tobacco Use Types Packs/Day Years Used Date Smoking Tobacco: Never Assessed Sex and Gender Information Value Date Recorded Sex Assigned at Not on file Legal Sex Male 2:49 AM CORRECTIONS COUNSELOR Gender Identity Not on file Sexual [...] influenza documented in this encounter Care Teams Swing Type Lathe Operator Relationship Specialty Start Date End Date Cuba Solano MD PCP - General 07/11/09 documented as of this encounter
--- OUTSIDE RECORDS SUMMARY | 2025-04-14 20:34 | XMS_ITS | Encounter Summary ---
Author Organization [facility] Address [address] [place] [address] Care Team Providers Care Wood Sash And Frame Carpenter Name Role Phone Cuba Solano MD Primary Care Provider +1 [phone] Encounter Details Date Type Department Care Team (Latest Contact Info) Description 07/20/2005 [facility] 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
--- OUTSIDE RECORDS SUMMARY | 2025-04-14 20:34 | XMS_ITS | Encounter Summary ---
Author Organization [facility] Address [address] [place] [address] Care Team Providers Care Stack Yield Engineer Name Role Phone Cuba Solano MD Primary Care Provider +1 [phone] Encounter Details Date Type Department Care Team (Latest Contact Info) Description 11/25/2005 Outpatient Historical [facility] Orthopedics- 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
--- OUTSIDE RECORDS SUMMARY | 2025-04-14 20:34 | XMS_ITS | Encounter Summary ---
Author Organization [facility] Address [address] [place] [address] Care Team Providers Care Rhinestone Setter Name Role Phone Cuba Solano MD Primary Care Provider +1 [phone] Encounter Details Date Type Department Care Team (Latest Contact Info) Description 12/29/2005 Outpatient Historical [facility] [address] [facility] [address] [place] [address] Ash Lopez III, MD [address] [place] [address] Other Affections of Shoulder Region, not Elsewhere Classified (Primary Dx) Social History Tobacco Use Types Packs/Day Years Used Date Smoking Tobacco: Never Assessed Sex and Gender Information Value Date Recorded Sex Assigned at Not on file Legal 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 Gender Identity Not on file Sexual [...] INTERFACE SYSTEM 12/29/2005 9:45 AM CDT Result [facility] Ash Lopez III, MD POINT OF CARE TESTING Final Result Performing Organization Address [facility] Phone Number INTERFACE SYSTEM Refer to [...] CARE TESTING Final Result Performing Organization Address [facility] Phone Number INTERFACE SYSTEM Refer to clinic/hospital department * (ABNORMAL) POC GLUCOSE (12/29/2005 7:05 AM CDT) GLUCOSE POC 133(H) 60 - 100 mg/dL INTERFACE SYSTEM 12/29/2005 7:05 AM CDT Ash Lopez III, MD POINT OF CARE TESTING Final Result Performing Organization Address [facility] Phone Number INTERFACE SYSTEM Refer to clinic/hospital department documented in this encounter Visit Diagnoses Diagnosis Other affections of shoulder region, not elsewhere classified- Primary documented in this encounter Care Teams Rhinestone Setter Relationship Specialty Start Date End Date Cuba Solano MD PCP - General 07/11/09 documented as of this encounter
--- OUTSIDE RECORDS SUMMARY | 2025-04-14 20:34 | XMS_ITS | Encounter Summary ---
Author Organization [facility] Address [address] [place] [address] Care Team Providers Care Pinner Printed Circuit Boards Name Role Phone Cuba Solano MD Primary Care Provider +1 -[phone] Encounter Details Date Type Department Care Team (Late st Contact Info) Description 02/23/2025 Results Follow-Up [address] [address] Becki Falcon NP [address] [address] CBC WITH DIFFERENTIAL, FERRITIN, IRON, [...] on file Legal Sex Male 5:38 AM HOUSEKEEPING/LAUNDRY Gender Identity Not on file Sexual Orientation Not on file documented as of this encounter Plan of Treatment Upcoming Encounters Date Type Department Care Team (Late Contact Info) Description 06/06/2025 11:30 AM HOUSEKEEPING/LAUNDRY Office Visit [facility] [address] [address] Becki Falcon NP [address] [address] documented as of this encounter Visit Diagnoses Not on filedocumented in this encounter Care Teams Pinner Printed Circuit Boards Relationship Specialty Start Date End Date Cuba Solano MD PCP - General 07/11/09 documented as of this encounter
--- OUTSIDE RECORDS SUMMARY | 2025-04-14 20:34 | XMS_ITS | Encounter Summary ---
Author Organization [facility] Address [address] [place] [address] Care Team Providers Care Spanner Operator Name Role Phone Cuba Solano MD Primary Care Provider +1 [phone] Encounter Details Date Type Department Care Team (Latest Contact Info) Description 12/26/2004 Outpatient Historical [facility] Family Medicine [place]ica [facility] [address] [address] Huey Upton Jr., MD [address] [place] [address] 248 [facility] 140 [place] [address] IMPETIGO (Primary Dx) Social History Tobacco Use Types Packs/Day Years Used Date Smoking Tobacco: Never Assessed Sex and Gender Information Value Date Recorded Sex Assigned at Not on file 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
--- OUTSIDE RECORDS SUMMARY | 2025-04-14 20:34 | XMS_ITS | Encounter Summary ---
Author Organization [facility] Address [address] [place] [address] Care Team Providers Care Chiropractor Sole Practitioner Name Role Phone Cuba Solano MD Primary Care Provider +1 [phone] Encounter Details Date Type Department Care Team (Latest Contact Info) Description 06/09/2006 Outpatient Historical [facility] Orthopedics- 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
--- OUTSIDE RECORDS SUMMARY | 2025-04-14 20:34 | XMS_ITS | Encounter Summary ---
Author Organization [facility] Address [address] [place] [address] Care Team Providers Care Sugar Plantation Manager Name Role Phone Cuba Solano MD Primary Care Provider +1 [phone] Encounter Details Date Type Department Care Team (Latest Contact Info) Description 06/17/2006 Outpatient [facility] Family Medicine [place] 7[address]22 [address] [address] Keyona Mccloud, LUCIEN NO ADDRESS ON FILE Unspecified Otitis Media (Primary Dx); Unspecified Tachycardia; Palpitations Social History Tobacco Use Types Packs/Day Years Used Date Smoking Tobacco: Never Assessed Sex and Gender Information Value Date Recorded Sex Assigned at Not on file 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
--- OUTSIDE RECORDS SUMMARY | 2025-04-14 20:34 | XMS_ITS | Encounter Summary ---
Author Organization [facility] Address [address] [place] [address] Care Team Providers Care Radiological Defense Officer Name Role Phone Cuba Solano MD Primary Care Provider +1 [phone] Encounter Details Date Type Department Care Team (Latest Contact Info) Description 05/15/2005 Outpatient Historical [facility] Family Medicine [place] [address] [address] Keyona Mccloud, LUCIEN NO ADDRESS ON FILE DIABETES MELLITUS TYPE II-UNCOMPL (CMS/HCC) (Primary Dx); HYPERLIPIDEMIA NEC/NOS; ACUTE URI NOS Social History Tobacco Use Types Packs/Day Years Used Date Smoking Tobacco: Never Assessed Sex and Gender Information Value Date Recorded Sex Assigned at Not on file 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
--- OUTSIDE RECORDS SUMMARY | 2025-04-14 20:34 | XMS_ITS | Continuity of Care Document ---
Author Organization [place] - Aravind Moncada [facility], [place], [facility]) Address [address] [place] [address] Assessment No assessment recorded. Plan of Treatment [...] By Organization Details Last Modified Time 02/08/2025 [id number] Planning to paracentesis today. Extremely abdominal swelling. Sugars too high, increase aspart to 60 units with meals. Planning to follow up next week. [email or web address] Not available 02/08/2025 14:32:28 Reason for Referral None Reported. Results Created Date Observation Date Name Description Value Unit Range Abnormal Flag Note LastModifiedBy Organization Detail LastModifiedTime 02/09/20 25 02/08/2025 imagi ng/di agnos tic resul t No observ ation record ed. [id number] [facility] [address] [place], [address], 02/12/2025 11:57:54 Result Notes None recorded. Problems Name Problem SNOMED Code Status Onset Date Resolution Date Notes Provider Name and Address Organization Details Recorded Time Essential hypertens ion 01898253 Active 2007 ESSENTIAL HYPERTENS ION; 8 2:16PM by Karla Joseph LPN, Office Visit; Promoted; acuity set as *; Not Available [facility] 3 03:17:47 Allergic rhinitis 62722277 Active 2007 ALLERGIC RHINITIS; 8 2:16PM by aKrla Joseph LPN, Office Visit; Promoted; acuity set as *; Not Available [facility] 3 03:17:47 Persisten t insomnia 270691003 Active 2007 PERSISTEN T INSOMNIA; 8 2:16PM by Karla Joseph LPN, Office Visit; Promoted; acuity set as *; Not Available [facility] 3 03:17:52 Fracture of ankle 40785868 Active 2007 Ankle Fracture; 8 2:16PM by Karla Joseph LPN, Office Visit; Promoted; acuity set as *; Not Available [facility] 3 03:17:53 Peptic ulcer 57301903 Active 2007 PEPTIC ULCER; 8 2:16PM by Karla Joseph LPN, Office Visit; Promoted; acuity set as *; Not Available [facility] 3 03:17:53 Type 1 diabetes mellitus 43979569 Active 2007 DIABETES MELLITUS TYPE I; 8 2:16PM by Karla Joseph LPN, Office Visit; Promoted; acuity set as *; Not Available [facility] 3 03:17:58 Constipat ion 64383658 Active 2007 CONSTIPAT ION; 8 2:16PM by Karla Joseph LPN, Office Visit; Promoted; acuity set as *; Not Available [facility] 3 03:17:58 Amputated above knee 329868547 Active 2007 ABOVE KNEE AMPUTATIO N STATUS; 8 2:16PM by Karla Joseph LPN, Office Visit; Promoted; acuity set as *; Not Available [facility] 3 03:17:59 History of depressio n 615154939 Active 2007 DEPRESSIO N, NOS; 8 2:16PM by Karla Joseph LPN, Office Visit; Promoted; acuity set as *; Not Available [facility] 3 03:18:00 Hyperglyc emia due to type 2 diabetes mellitus 61281917746 9109 Active 2023 RASHEED [facility] 4 13:09:52 Chronic back pain greater than three months duration 52241647167 2 Active 2023 NATHANAEL tavarez, [facility] 4 15:23:19 Blepharit is of right eyelid 27103706267 9103 Active 2024 NATHANAEL tavarez, [facility] 5 15:11:18 Congestiv e heart failure 44233517 Active 2024 NATHANAEL tavarez, [facility] 5 16:21:48 Acute right otitis media 499758496 [facility] 5 16:28:04 Pain of right shoulder joint 04092383796 279343 Active 2024 [facility] 5 17:59:42 Hepatospl enomegaly 58454671 Active 2024 NATHANAEL VICTORIA [facility], [facility] 5 14:35:12 Thrombocy topenic disorder 781566606 Active 2024 NATHANAEL VICTORIA [facility] 5 14:35:13 Bilateral lower limb edema 596423023 Active 2024 [facility] 5 15:35:25 Acute urinary tract infection 802518746 Active 2024 NATHANAEL VICTORIA [facility] 5 14:32:57 Sarcoidos is 99266491 Active 2024 NATHANAEL VICTORIA [facility] 5 14:33:01 Problem Notes None recorded. Medical Equipment None Reported. Allergies Allergen ID Allergen Name Allergen Category Reaction Reaction Severity Criticality Documentation Date Start Date Code Code System Note Provider Name and Address Organization Details Recorded Time 77785 Product containin g penicilli n (product) medicatio n Not available Not available Not available 11/28/2022 95188 8001 SNOMED Comme nt: Recor ded 09/01 2:16P M by Briseida Joseph LPN, Offic e Visit ; Promo joanne; Shruthi wade ce: *; ; Not Available [facility] 3 02:25:17 37448 Substance with sulfonami de structure and antibacte rial mechanism of action (substanc e) medicatio n Not available Not available Not available 03/22/2025 31682 8003 SNOMED Not Available [facility] [employer] - prod 5 06:48:45 83856 sulfameth oxazole / trimethop rim medicatio n rash Not available [facility] 03/22/20252007 71860 RxNorm Not Available david [employer] - prod 5 06:50:41 Medications Name Sig Start Date Stop Date Status Note LastModified by Organization Details LastModified Time Prescripti on - Renewal active Oxycodone Not Available Not Available No t Available Prescripti on - Prior Authorizat ion Request active Not Available Not Available Not Available Refresh Tears 0.5 % eye drops four times daily 2007 active Recorded 8 8:15AM by Stevne Greenberg MD, Office Visit; Refill Quantity: 0; [...] active 0; Recorded 8 2:23PM by Karla Joesph LPN, Office Visit; Not Available Not Available Not Available Oxycodone W/Acetamin ophen q 3 hrs prn for pain active 0; Recorded 05/02/200 8 2:23PM by Karla Joseph LPN, Office Visit; Not Available Not Available Not Available Vitals Date Recorded Body weight Heart rate Respiratory rate Body temperature Oxygen saturation Systolic And Diastolic Provider Name and Address Organization Details Last Updated DateTime 5 051327. 58 g 74 /min 20 /min 98 [degF] 96 % 143/72 mm[Hg] NATHANAEL VICTORIA [facility], [facility] 5 14:30:11 Social History None recorded. Functional Status None recorded. Mental Status None recorded. Family History Nothing Reported. Medical History No medical history recorded. Immunizations Vaccine Type Date Status Note Provider Nam e and Address Organization Details Recorded Time influenza, unspecified formulation 8 completed Not Available [facility] 04/05/2025 12:29:13 Influenza, split virus, trivalent, preservative 0 completed Not Available [facility] 04/05/2025 12:29:13 COVID-19, mRNA, LNP-S, PF, 100 mcg/0.5mL dose or 50 mcg/0.25mL dose 1 completed Not Available [facility] 04/05/2025 12:29:13 COVID-19, mRNA, LNP-S, PF, 100 mcg/0.5mL dose or 50 mcg/0.25mL dose 1 completed Not Available [facility] 04/05/2025 12:29:13 Influenza, split virus, quadrivalent, PF 1 completed Not Available [facility] 04/05/2025 12:29:13 COVID-19, mRNA, LNP-S, PF, 100 mcg/0.5mL dose or 50 mcg/0.25mL dose 1 completed Not Available [facility] 04/05/2025 12:29:13 Influenza, split virus, quadrivalent, PF 2 completed Not Available [facility] 04/05/2025 12:29:13 Influenza, split virus, quadrivalent, PF 3 completed Not Available [facility] 04/05/2025 12:29:13 Influenza, split virus, trivalent, preservative 4 completed Not Available [facility] 04/05/2025 12:29:13 COVID-19, mRNA, LNP-S, PF, 50 mcg/0.5 mL completed Not Available [facility] 04/05/2025 12:29:13 Past Encounters Encounter ID Performer Location Encounter Start Date Encounter Closed Date Diagnosis/Indication Diagnosis SNOMED-CT Code Diagnosis ICD10 Code Diagnosis IMO Codes Diagnosis Note [id number] Chris Parker DO [facility] ([facility]) [address] [place] [address] 01/11/2025 12:12:21 01/16/2025 10:56:12 Hyperglycemia due to type 2 diabetes mellitus 0630593548 01791 E11.65 Z79.4 [id number] Chris Parker DO [facility]) [address] [place] [address] 01/15/2025 12:18:30 01/17/2025 08:49:31 Type 1 diabetes mellitus 15036778 E10.9 Hepatosplenomegaly 28822 000 R16.2 87593 Pneumonia 851882845 J18. 9 [id number] Chris Parker DO [facility] ([facility]) [address] [place] [address] 01/18/2025 09:41:48 01/23/2025 16:25:08 [id number] Chris Parker DO [facility] ([facility]) [address] [place] [address] 01/22/2025 15:25:32 01/24/2025 09:26:09 Congestive heart failure 51546686 I50.9 Type 1 brad betes mellitus 10745532 E10.9 Hepatosplenomegaly 80030 000 R16.2 05963 [id number] Chris Parker DO [facility] ([facility]) [address] [place] [address] 02/05/2025 14:15:56 02/06/2025 16:50:40 Hepatosplenomegaly 39279276 R16.2 45743 Ascites 580442611 R18.8 [id number] Pancytopenia 451575268 D 61.818 86224 [id number] Chris Parker DO [facility] ([facility]) [address] [place] [address] 02/08/2025 13:43:34 02/13/2025 12:53:21 Hyperglycemia due to type 2 diabetes mellitus 8210890704 45872 E11.65 Z79.4 Hepatosplenomegaly 46860 000 R16.2 51780 Health Concerns Section Related Observation LastModified by Organization Detai ls LastModified Time None Recorded Concern Status LastModified by Organization Details LastModified Time None Recorded Payers Encounter Date Sequence Insurance Name Policy Number Policy Pate Covered Member ID Pate Member ID Guarantor Name 02/08/2025 1 [place] Marciano Alonso [id number] Marciano Alonso 02/08/2025 2 [place] Marciano Alonso [id number] Marciano Alonso Notes Date Note Type Note Provider Name and Address Organization Details Recorded Time 02/08/2025 text/html COPDReported by PatientHPI:For associated symptoms, patient reportsobesity. For onset/timing, patient reportsmultiple times per day. For duration, patient reportshas noted for years.ROS as noted in the HPI Planning to go for paracentesis. Chris Parker DO [address] [place] [address], [address], [facility], [place] 02/11/2025 17:17:58
--- OUTSIDE RECORDS SUMMARY | 2025-04-14 20:34 | XMS_ITS | Encounter Summary ---
Author Organization [facility] Address [address] [place] [address] Care Team Providers Care Cleaning Laborer Name Role Phone Cuba Solano MD Primary Care Provider +1 -[phone] Encounter Details Date Type Department Care Team (Latest Contact Info) Description 10/21/2005 Outpatient Historical [facility] Orthopedics- 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
--- OUTSIDE RECORDS SUMMARY | 2025-04-14 20:34 | XMS_ITS | Encounter Summary ---
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
--- OUTSIDE RECORDS SUMMARY | 2025-04-14 20:34 | XMS_ITS | Encounter Summary ---
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
--- OUTSIDE RECORDS SUMMARY | 2025-04-14 20:34 | XMS_ITS | Encounter Summary ---
Author Organization [facility] Address [address] [place] [address] Care Team Providers Care Hand Shaker Name Role Phone Cuba Solano MD Primary Care Provider +1 -[phone] Encounter Details Date Type Department Care Team (Latest Contact Info) Description 12/02/2005 Outpatient Historical [facility] Family Medicine Angelica [facility] [address] [address] Huey Upton Jr., MD [address] [place] [address] 248 [facility] 140 [place] [address] DM w/o Complication Type II (CMS/HCC) (Primary Dx); Other and Unspecified Hyperlipidemia; Unspecified Essential Hypertension; Pain in Joint, Shoulder Region Social History Tobacco Use Types Packs/Day Years Used Date Smoking Tobacco: Never Assessed Sex and Gender Information Value Date Recorded Sex Assigned at Not on file 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
--- OUTSIDE RECORDS SUMMARY | 2025-04-14 20:34 | XMS_ITS | Encounter Summary ---
Author Organization [facility] Address [address] [place] [address] Care Team Providers Care Solution Manager Name Role Phone Cuba Solano MD Primary Care Provider +1 -[phone] Encounter Details Date Type Department Care Team (Latest Contact Info) Description 05/04/2006 Outpatient Historical [facility] Family Medicine [place] [id number] [address] Keyona Mccloud FNP NO ADDRESS ON FILE DM w/o Complication Type II (CMS/HCC) (Primary Dx); Other and Unspecified Hyperlipidemia; Encounter for Long-Term (Current) Use of Other Medications Social History Tobacco Use Types Packs/Day Years Used Date Smoking Tobacco: Never Assessed Sex and Gender Information Value Date Recorded Sex Assigned at Not on file 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
--- OUTSIDE RECORDS SUMMARY | 2025-04-14 20:34 | XMS_ITS | Encounter Summary ---
Author Organization [facility] Address [address] [place] [address] Care Team Providers Care Interior Design Professor Name Role Phone Cuba Solano MD Primary Care Provider +1 -[phone] Encounter Details Date Type Department Care Team (Latest Contact Info) Description 01/09/2005 Outpatient Historical [facility] Family Medicine Angelica [facility] [address] [address] Huey Upton Jr., MD [address] [place] [address] 248 [facility] [address] [place] [address] DERMATITIS NEC (Primary Dx) Social History Tobacco Use Types Packs/Day Years Used Date Smoking Tobacco: Never Assessed Sex and Gender Information Value Date Recorded Sex Assigned at Not on file 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
--- OUTSIDE RECORDS SUMMARY | 2025-04-14 20:34 | XMS_ITS | Encounter Summary ---
Author Organization [facility] Address [address] [place] [address] Care Team Providers Care Rim Roller Operator Name Role Phone Cuba Solano MD Primary Care Provider +1 [phone] Encounter Details Date Type Department Care Team (Latest Contact Info) Description 01/12/2006 Outpatient Historical [facility] Orthopedics- [address] [place] [address] 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
--- OUTSIDE RECORDS SUMMARY | 2025-04-14 20:34 | XMS_ITS | Encounter Summary ---
Author Organization [facility] Address [address] [place] [address] Care Team Providers Care Billing Services Manager Name Role Phone Cuba Solano MD Primary Care Provider +1 [phone] Encounter Details Date Type Department Care Team (Latest Contact Info) Description 04/12/2006 Outpatient Historical [facility] Family Medicine Angelica [facility] [address] [address] Huey Upton Jr., MD [address] [place] [address] 248 [facility] [address] [place] [address] Dysphagia (Primary Dx); Unspecified Essential Hypertension Social History Tobacco Use Types Packs/Day Years Used Date Smoking Tobacco: Never Assessed Sex and Gender Information Value Date Recorded Sex Assigned at Not on file 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
--- OUTSIDE RECORDS SUMMARY | 2025-04-14 20:34 | XMS_ITS | Encounter Summary ---
Author Organization [facility] Address [address] [place] [address] Care Team Providers Care Worship Pastor Name Role Phone Cuba Solano MD Primary Care Provider +1 [phone] Encounter Details Date Type Department Care Team (Late st Contact Info) Description 03/04/2005 Outpatient Historical [facility] Family Medicine Angelica [place] [id number] [address] Social History Tobacco Use Types Packs/Day Years Used Date Smoking Tobacco: Never Assessed Sex and Gender Information Value Date Recorded Sex Assigned at Not on file Legal Sex Male 2:[address] REFEREE Gender Identity Not on file Sexual Orientation Not on file documented as of this encounter Plan of Treatment Not on file documented as of this encounter Visit Diagnoses Not on filedocumented in this encounter Care Teams Worship Pastor Relationship Specialty Start Date End Date Cuba Solano MD PCP - General 07/11/09 documented as of this encounter
--- OUTSIDE RECORDS SUMMARY | 2025-04-14 20:34 | XMS_ITS | Clinical Summary ---
Author Organization [facility] [place] [facility] Address [address] [place]: [place] [address] Care Team Providers Care Chief Psychologist Name Role Phone Cuba Solano MD Primary Care Provider +1 -[phone] Allergies Active Allergy Reactions Criticality Noted Date [...] TAB, PO, BID, # 60 TAB, Pharmacy: [facility] [place], 182, cm, 11/22/23 19:48:00 CDT, Height CM, [...] Constipation. Active fluticasone propionate (FLONASE) 50 mcg/spray [place], Suspension nasal inhaler Administer 2 Sprays in [...] Data STL ABSTRACTION Provider, Abstract 03/16/[address] [place] [address] Kat Vyas, RN 03/14/[address] [address] Becki Falcon NP Medical records request 03/02/[address] [address] Kat Vyas, NILES 03/02/[address] [address] Kat Vyas RN 03/01/[address] [address] Becki Falcon NP fax notes/CADEN request/scopes 02/28/2025 External Device Data STL ABSTRACTION Provider, Abstract 02/27/2025 External Device Data ST[place] ABSTRACTION Provider, Abstract 02/27/2025 External Device Data ST[place] ABSTRACTION Provider, Abstract 02/27/2025 External Device Data STL ABSTRACTION Provider, Abstract 02/27/[address] [address] Becki Falcon NP Documentation 02/23/[address] [address] Becki Falcon NP Results 02/23/2025 External Device Data STL ABSTRACTION Provider, Abstract 02/23/2025 Results Follow-Up [address] [place] [address] Becki Falcon NP CBC WITH DIFFERENTIAL, FERRITIN, IRON, TIBC, AND PERCENT SATURATION, Additional followed-up results: 12 02/22/2025 10:30 AM CDT Office Visit [facility] [phone] Becki Falcon, NISHA Abdominal pain, unspecified abdominal location (Primary Dx); Anemia, chronic disease; Anasarca; Hepatomegaly; Postprandial abdominal pain in left upper quadrant 02/05/2025 Orders Only [address] [phone] Chris Parker DO Abdominal pain, unspecified abdominal [...] on file Legal Sex Male 5:38 AM CAREER DEVELOPMENT COORDINATOR Gender Identity Not on file Sexual [...] st Contact Info) Description 06/06/2025 11:30 AM CAREER DEVELOPMENT COORDINATOR Office Visit [facility] Gastroenterology- [place] [address] [place] [address] Becki Falcon NP [address] [facility] [address] [place] [address] Health Maintenance Due Date Last [...] CDT) ALLERGEN BEEF <0.10 kU/L [facility], ALLERGEN BEEF (F27) CLASS 0 [facility], CARTAGENA (F88) IGE <0.10 kU/L [facility], ALLERGEN CARTAGENA (F88) CLASS 0 [facility], ALLERGEN PORK <0.10 kU/L [facility], ALLERGEN PORK (F26) CLASS 0 [facility], GALACTOSE - ALPHA -1, 3 - GALACTOSE, IGE <0.10 <0.10 kU/L [facility], Comment: Results above 0.1 kU/L indicate an allergen-specific IgE sensitization to vlhbfzfys-o-3,3-galactose, and such patients are at risk for [...] method. Additional information can be found at [email or web address] ALLERGY PANEL INTERP [facility], Comment: Specific Level of Allergen IGE [...] analytical performance characteristics have been determined by [facility]. It has not been cleared or approved by the U.S. Food and Drug Administration. This assay has been validated pursuant to the CLIA regulations and is used for clinical purposes. FASTING:NO FASTING: NO Test Performed at: [facility], [address] [place] [address] Maddie Chino MD,PhD,[place] Blood 02/22/2025 12:1 8 PM CDT 02/22/2025 12:19 PM CDT Becki Falcon SOCK BOARDER CHEMISTRY ORDERABLES Final Resul t Performing Organization Address City/[facility]/ZIP Co de Phone Number [facility] [phone] [facility], [address] [place] [address] * TEST AUTHORIZATION (02/22/2025 12:18 PM CDT) TEST NAME COMPREHENSIVE METABOLIC [facility] TEST CODE [id number] [place] CLIENT CONTACT NIKHIL Peck WNGLN [facility] [employer] [facility] SEE NOTE [facility] Comment: The laboratory testing on this patient was verbally requested or confirmed by the ordering physician or his or her authorized business office representative after contact with an employee of [employer] [facility]. Federal regulations require that we maintain on file written authorization for all laboratory testing. Accordingly we are asking that the ordering physician or his or her authorized business office representative sign a copy of this report and promptly return it to the client care consultant. Signature: SEE NOTE [facility] Comment: Fax number: [phone] FASTING:NO FASTING: NO Test Performed at: [facility] [address] [facility] [place] [address] Sheila Harper MD 02/22/2025 12:1 8 PM CDT 02/22/2025 12:19 PM CDT Becki Falcon SOCK BOARDER CHEMISTRY ORDERABLES Final Resul t Performing Organization Address City/[facility] Co de Phone Number [facility] [phone] [employer] [address] [place] [address] * HEPATITIS B SURFACE ANTIGEN (02/22/2025 12:18 PM CDT) HEPATITIS B SURFACE AG NON-REACTI VE NON-REACTI VE [facility] Comment: For additional information, please refer to http://education.[employer]/faq/MXF083 (This link is being provided for informational/ educational purposes only.) Test Performed at: [facility] [address] [place] [address] Sheila Harper MD Blood 02/22/2025 12:1 8 PM CDT 02/22/2025 12:19 PM CDT Becki Falcon SOCK BOARDER CHEMISTRY ORDERABLES Final Resul t Performing Organization Address [facility] Co de Phone Number [facility] [phone] [facility] [address] [place] [address] * TRANSGLUTAMINASE IGA ANTIBODY (02/22/2025 12:18 PM CDT) Pathologist [facility] TRANSGLUTAMINASE IGA AB <1.0 U/mL [facility] [place] Comment: Value Interpretation ----- <15.0 Antibody not detected > or = 15.0 Antibody detected FASTING:NO FASTING: NO Test Performed at: [facility] [address] Placido Tate Blood 02/22/2025 12:1 8 PM CDT 02/22/2025 12:19 PM CDT Becki Falcon SOCK BOARDER CHEMISTRY ORDERABLES Final Resul t Performing Organization Address [facility] Co de Phone Number [facility] [phone] [facility] [address] [place] [address] * (ABNORMAL) IRON, TIBC, AND PERCENT SATURATION (02/22/2025 12:18 PM CDT) Pathologist [facility] IRON 62 50 - 180 mcg/dL [facility] TIBC 422 250 - 425 mcg/dL (calc) [facility] [facility] IRON % SATURATION 15(L) 20 - 48 % (calc) [facility] Comment: Test Performed at: [facility] [address] [place] [address] Sheila Harper MD Blood 02/22/2025 12:1 8 PM CDT 02/22/2025 12:19 PM CDT Becki Falcon SOCK BOARDER CHEMISTRY ORDERABLES Final Resul t Performing Organization Address City/[facility]/ZIP Co de Phone Number [facility] [phone] [facility] [address] * HEPATITIS C ANTIBODY W REFLEX (02/22/2025 12:18 PM CDT) HEPATITIS C AB NON-REACTI VE NON-REACT CRISTIANO [facility] Comment: HCV antibody was non-reactive. There is no laboratory evidence of HCV infection. In most cases, no further action is required. However, if recent HCV exposure is suspected, a test for HCV RNA (test code 70056) is suggested. For additional information please refer to http://education.Ch[employer] Interactive/faq/MTU59b3 (This link is being provided for informational/ educational purposes only.) Test Performed at: [facility] [address] [place] [address] Sheila Harper MD Blood 02/22/2025 12:1 8 PM CDT 02/22/2025 12:19 PM CDT Becki Falcon SOCK BOARDER CHEMISTRY ORDERABLES Final Resul t [facility] [phone] [facility] [address] [place] [address] * CERULOPLASMIN (02/22/2025 12:18 PM CDT) CERULOPLASMIN 29 14 - 30 mg/dL [facility] Comment: Test Performed at: [facility] [address] [place] [address] Sheila Harper MD Blood 02/22/2025 12:1 8 PM CDT 02/22/2025 12:19 PM CDT Becki Falcon SOCK BOARDER CHEMISTRY ORDERABLES Final Resul t [facility] [phone] [facility] [address] [place] [address] * (ABNORMAL) ALPHA 1 ANTITRYPSIN (02/22/2025 12:18 PM CDT) Pathologist [facility] ALPHA 1 ANTITRYPSIN 224(H) 83 - 199 mg/dL [facility] Comment: Test Performed at: [facility] [address] Sheila Harper MD Blood 02/22/2025 12:1 8 PM CDT 02/22/2025 12:19 PM CDT Becki Falcon SOCK BOARDER CHEMISTRY ORDERABLES Final Resul t Performing Organization Address [facility]/ZIP Co de Phone Number [facility] [phone] [facility] [address] [place] [address] * (ABNORMAL) CBC WITH DIFFERENTIAL (02/22/2025 12:18 PM CDT) Pathologist [facility] WBC 4.6 3.8 - 10.8 Thousand/u L [...] Comment: FASTING:NO FASTING: NO Test Performed at: [facility] [address] [place] [address] Jose Rafael Mack Blood 02/22/2025 12:1 8 PM CDT 02/22/2025 12:19 PM CDT us Becki Falcon SOCK BOARDER HEMATOLOGY ORDERABLES Final Resu lt [facility] [phone] [facility] RR [address] [place] [address] * VITAMIN D 25 HYDROXY (02/22/2025 12:18 PM CDT) VITAMIN D, 25 OH, TOTAL 36 30 - 100 ng/mL [facility] Comment: Vitamin D Status 25-OH Vitamin D: Deficiency: <20 ng/mL Insufficiency: 20 - 29 ng/mL Optimal: > or = 30 ng/mL For 25-OH Vitamin D testing on patients on D2-supplementation and patients for whom quantitation of D2 and D3 fractions is required, the [facility]) 25-OH VIT D, (D2,D3), LC/MS/MS is recommended: order code 91632 (patients >2yrs). See Note 1 Note 1 For additional information, please refer to http://education.[employer]/faq/DGB584 (This link is being provided for informational/ educational purposes only.) FASTING:NO FASTING: NO Test Performed at: [facility] [address] [place] [address] Sheila Harper MD Blood 02/22/2025 12:1 8 PM CDT 02/22/2025 12:19 PM CDT Becki Falcon SOCK BOARDER CHEMISTRY ORDERABLES Final Resul t [facility] [phone] [facility] [address] [place] [address] * (ABNORMAL) C-REACTIVE PROTEIN (02/22/2025 12:18 PM CDT) CRP 15.0(H) <8.0 mg/L [facility] Comment: FASTING:NO FASTING: NO Test Performed at: [facility] [address] [place] [address] Sheila Harper MD Blood 02/22/2025 12:1 8 PM CDT 02/22/2025 12:19 PM CDT us Becki Danielm SOCK BOARDER CHEMISTRY ORDERABLES Final Resul t Performing Organization Address [facility] Co de Phone Number [facility] [phone] [facility] [address] [facility] [place] [address] * ANKUR SCREEN W/REFLEX (02/22/2025 12:18 PM CDT) ANKUR SCREEN NEGATIVE NEGATIVE [facility] [place] Comment: ANKUR IFA is a first line [...] AC-0: Negative International Consensus on ANKUR Patterns (https://doi.org/10.1515/iwho-1323-4232) For additional information, please refer to http://education.[employer]/faq/TAD984 (This link is being provided for informational/ educational purposes only.) FASTING:NO FASTING: NO Test Performed at: [facility] [address] [facility] [place] [address] Sheila Harper MD Blood 02/22/2025 12:1 8 PM CDT 02/22/2025 12:19 PM CDT Becki Falcon SOCK BOARDER CHEMISTRY ORDERABLES Final Resul t Performing Organization Address City/[facility]/ZIP Co de Phone Number [facility] [phone] [facility] [address] [facility] [address] * (ABNORMAL) BRAIN NATRIURETIC PEPTIDE, BNP OR PROBNP (02/22/2025 12:18 PM CDT) PROBNP, N TERMINAL 1,063(H) <125 pg/mL [facility] Comment: FASTING:NO FASTING: NO Test Performed at: [facility] [address] [place] [address] Sheila Harper MD Blood 02/22/2025 12:1 8 PM CDT 02/22/2025 12:19 PM CDT Becki Falcon SOCK BOARDER CHEMISTRY ORDERABLES Final Resul t Performing Organization Address City/[facility]/ZIP Co de Phone Number [facility] [phone] [facility] [address] * FERRITIN (02/22/2025 12:18 PM CDT) Pathologist [facility] FERRITIN 30 24 - 380 ng/mL [facility] Comment: Test Performed at: [facility] Hospital[facility] [address] Sheila Harper MD Blood 02/22/2025 12:1 8 PM CDT 02/22/2025 12:19 PM CDT Becki Falcon NP CHEMISTRY ORDERABLES Final Resul t Performing Organization Address [facility]/ZIP Co de Phone Number [facility] [phone] [facility] [address] * (ABNORMAL) COMPREHENSIVE METABOLIC PANEL (02/22/2025 12:18 PM CDT) Pathologist [facility] GLUCOSE 166(H) 65 - 139 mg/dL [facility] [...] Comment: FASTING:NO FASTING: NO Test Performed at: [facility] [address] [place] [address] Sheila Harper MD 02/22/2025 12:1 8 PM CDT 02/22/2025 12:19 PM CDT Becki Falcon SOCK BOARDER CHEMISTRY ORDERABLES Final Resul t [facility] [phone] [facility] [employer]-[address] [address] * ENDOSCOPY, SIGMOID (01/26/2020 12:00 AM CDT) Sgf Scanning GI PROCEDURE ORDERABLES Final Re sult from Last 3 Months or Most Recently Relevant to Health Maintenance Insurance MEDICARE PART A [place] B [place] Advance Directives For more information, please contact: [phone] Documents on File Type Date Recorded Patient Commercial [employer]am[employer] Expl anation Advance Directive POA 02/22/2025 10:00 AM Advance Directive POA Care Teams Chief Psychologist Relationship Specialty Start Date End Date Cuba Solano MD PCP - General 07/11/09
--- OUTSIDE RECORDS SUMMARY | 2025-04-14 20:34 | XMS_ITS | Encounter Summary ---
Author Organization [facility] Address [address] [place] [address] Care Team Providers Care Purchasing Contracting Clerk Name Role Phone Cuba Solano MD Primary Care Provider +1 [phone] Encounter Details Date Type Department Care Team (Late st Contact Info) Description 02/02/2006 Outpatient Historical [facility] Family Medicine [place] [address] [address] Social History Tobacco Use Types Packs/Day Years Used Date Smoking Tobacco: Never Assessed Sex and Gender Information Value Date Recorded Sex Assigned at Not on file Legal Sex Male 2:49 AM SAFETY ADMINISTRATOR Gender Identity Not on file Sexual Orientation Not on file documented as of this encounter Plan of Treatment Not on file documented as of this encounter Visit Diagnoses Not on filedocumented in this encounter Care Teams Purchasing Contracting Clerk Relationship Specialty Start Date End Date Cuba Solano MD PCP - General 07/11/09 documented as of this encounter
--- OUTSIDE RECORDS SUMMARY | 2025-04-14 20:34 | XMS_ITS | Encounter Summary ---
Author Organization [facility] Address [address] [place] [address] Care Team Providers Care Java Websphere Developer Name Role Phone Cuba Solano MD Primary Care Provider [phone] [phone] Encounter Details Date Type Department Care Team (Latest Contact Info) Description 07/27/2006 Outpatient Historical [facility] Orthopedics- [address] [place] [address] [place] [address] Ash Lopez III, MD [address] [address] [place] [address] Adhesive Capsulit Shlder (Primary Dx) Social History Tobacco Use Types Packs/Day Years Used Date Smoking Tobacco: Never Assessed Sex and Gender Information Value Date Recorded Sex Assigned at Not on file Legal Sex Male 2:49 AM CONTINUING EDUCATION DIRECTOR Gender Identity Not on file Sexual Orientation Not on file documented as of this encounter Plan of Treatment Not on file documented as of this encounter Visit Diagnoses Diagnosis Adhesive capsulit shlder- Primary Adhesive capsulitis of shoulder documented in this encounter Care Teams Java Websphere Developer Relationship Specialty Start Date End Date Cuba Solano MD PCP - General 07/11/09 documented as of this encounter
--- OUTSIDE RECORDS SUMMARY | 2025-04-14 20:34 | XMS_ITS | Encounter Summary ---
Author Organization [facility] Address [address] [place] [address] Care Team Providers Care Roll Scale Worker Name Role Phone Cuba Solano MD Primary Care Provider +1 [phone] Encounter Details Date Type Department Care Team (Latest Contact Info) Description 04/17/2005 Outpatient Historical [facility] Family Medicine Angelica [facility] [address] [address] Huey Upton Jr., MD [address] [place] [address] 248 [facility] [address] [place] [address] ALLERGY, UNSPECIFIED (Primary Dx) Social History Tobacco Use Types Packs/Day Years Used Date Smoking Tobacco: Never Assessed Sex and Gender Information Value Date Recorded Sex Assigned at Not on file Legal Sex Male 2:49 AM ASSEMBLER INSULATOR Gender Identity Not on file Sexual Orientation Not on file documented as of this encounter Plan of Treatment Not on file documented as of this encounter Visit Diagnoses Diagnosis Allergy, unspecified not elsewhere classified- Primary documented in this encounter Care Teams Roll Scale Worker Relationship Specialty Start Date End Date Cuba Solano MD PCP - General 07/11/09 documented as of this encounter
--- OUTSIDE RECORDS SUMMARY | 2025-04-14 20:34 | XMS_ITS | Encounter Summary ---
Author Organization [facility] Address [address] [place] [address] Care Team Providers Care School Psychology Professor Name Role Phone Cuba Solano MD Primary Care Provider +1 [phone] Encounter Details Date Type Department Care Team (Latest Contact Info) Description 06/28/2006 Outpatient Historical [facility] Family Medicine [place] 9[address] [address] Keyona Mccloud, LUCIEN NO ADDRESS ON FILE Unspecified Otitis Media (Primary Dx); Acute Sinusitis, Unspecified Social History Tobacco Use Types Packs/Day Years Used Date Smoking Tobacco: Never Assessed Sex and Gender Information Value Date Recorded Sex Assigned at Not on file Legal Sex Male 2:49 AM CANDY POLISHER Gender Identity Not on file Sexual Orientation Not on file documented as of this encounter Plan of Treatment Not on file documented as of this encounter Visit Diagnoses Diagnosis Unspecified otitis media- Primary Acute sinusitis, unspecified documented in this encounter Care Teams School Psychology Professor Relationship Specialty Start Date End Date Cuba Solano MD PCP - General 07/11/09 documented as of this encounter
--- OUTSIDE RECORDS SUMMARY | 2025-04-14 20:34 | XMS_ITS | Encounter Summary ---
Author Organization [facility] Address [address] [place] [address] Care Team Providers Care Picking Table Worker Name Role Phone Cuba Solano MD Primary Care Provider +1 -[phone] Encounter Details Date Type Department Care Team (Latest Contact Info) Description 05/27/2006 Outpatient Historical [facility] Family Medicine [place]ica [place] [id number] [address] Keyona Mccloud, LUCIEN NO ADDRESS ON FILE Other B-Complex Deficiencies (Primary Dx) Social History Tobacco Use Types Packs/Day Years Used Date Smoking Tobacco: Never Assessed Sex and Gender Information Value Date Recorded Sex Assigned at Not on file Legal Sex Male 2:49 AM ACRYLIC FABRICATOR Gender Identity Not on file Sexual Orientation Not on file documented as of this encounter Plan of Treatment Not on file documented as of this encounter Visit Diagnoses Diagnosis Other B-complex deficiencies- Primary documented in this encounter Care Teams Picking Table Worker Relationship Specialty Start Date End Date Cuba Solano MD PCP - General 07/11/09 documented as of this encounter
--- OUTSIDE RECORDS SUMMARY | 2025-04-14 20:35 | XMS_ITS | Encounter Summary ---
Author Organization [facility] Address [address] [place] [address] Care Team Providers Care Community Service Officer Coordinator Name Role Phone Cuba Solano MD Primary Care Provider +1 -[phone] Encounter Details Date Type Department Care Team (Latest Contact Info) Description 11/21/2004 Outpatient Historical [facility] Family Medicine Angelica [place] 849782 [address] [address] Keyona Mccloud, LUCIEN NO ADDRESS ON FILE Pain in limb (Primary Dx) Social History Tobacco Use Types Packs/Day Years Used Date Smoking Tobacco: Never Assessed Sex and Gender Information Value Date Recorded Sex Assigned at Not on file Legal Sex Male 2:49 AM PUBLIC WORKS DIRECTOR Gender Identity Not on file Sexual Orientation Not on file documented as of this encounter Plan of Treatment Not on file documented as of this encounter Visit Diagnoses Diagnosis Pain in limb- Primary Pain in soft tissues of limb documented in this encounter Care Teams Community Service Officer Coordinator Relationship Specialty Start Date End Date Cuba Solano MD PCP - General 07/11/09 documented as of this encounter
--- OUTSIDE RECORDS SUMMARY | 2025-04-14 20:35 | XMS_ITS | Encounter Summary ---
Author Organization [facility] Address [address] [place] [address] Care Team Providers Care Grade Foreman Name Role Phone Cuba Solano MD Primary Care Provider +1 -[phone] Encounter Details Date Type Department Care Team (Latest Contact Info) Description 07/18/2004 Outpatient Historical [facility] Family Medicine [place] [id number] [address] Keyona Mccloud, LUCIEN NO ADDRESS ON FILE ORAL APHTHAE (Primary Dx); DYSPHAGIA Social History Tobacco Use Types Packs/Day Years Used Date Smoking Tobacco: Never Assessed Sex and Gender Information Value Date Recorded Sex Assigned at Not on file Legal Sex Male 2:49 AM FISH EGG PACKER Gender Identity Not on file Sexual Orientation Not on file documented as of this encounter Plan of Treatment Not on file documented as of this encounter Visit Diagnoses Diagnosis Oral aphthae- Primary Dysphagia documented in this encounter Care Teams Grade Foreman Relationship Specialty Start Date End Date Cuba Solano MD PCP - General 07/11/09 documented as of this encounter
--- OUTSIDE RECORDS SUMMARY | 2025-04-14 20:35 | XMS_ITS | Encounter Summary ---
Author Organization [facility] Address [address] [place] [address] Care Team Providers Care Lapeler Name Role Phone Cuba Solano MD Primary Care Provider +1 -[phone] Encounter Details Date Type Department Care Team (Latest Contact Info) Description 06/06/2004 Outpatient Historical [facility] [address] [place] [address] Frances Davies, BUGGY OPERATOR [address] [place] [address] HYPERSOMNI W SLEEP APNEA (Primary Dx) Social History Tobacco Use Types Packs/Day Years Used Date Smoking Tobacco: Never Assessed Sex and Gender Information Value Date Recorded Sex Assigned at Not on file Legal Sex Male 2:49 AM CAREER INFORMATION SPECIALIST Gender Identity Not on file Sexual Orientation Not on file documented as of this encounter Plan of Treatment Not on file documented as of this encounter Visit Diagnoses Diagnosis Hypersomnia with sleep apnea, unspecified- Primary documented in this encounter Care Teams Lapeler Relationship Specialty Start Date End Date Cuba Solano MD PCP - General 07/11/09 documented as of this encounter
--- OUTSIDE RECORDS SUMMARY | 2025-04-14 20:35 | XMS_ITS | Continuity of Care Document ---
Author Organization [place] - Aravind Barboza [facility] Mikhail, Chas, [facility] ([facility]) Address [address] [address] Assessment No assessment recorded. Plan of Treatment [...] By Organization Details Last Modified Time 01/22/2025 [id number] Seen in the ER over the weekend and started on steroids for bronchitis/copd exacerbation. Still dyspneic. Signficant weight gain likely secondary to retained fluid. Will order outpatient diagnostic and therapeutic paracentesis. Planning for liver bx soon. Will refer to GI. Start lasix 40mg bid. Good discussion with sister about worsening health and results will not be fast. [email or web address] Not available 01/23/2025 14:49:40 Reason for Referral None Reported. Results Created Date Observation Date Name Description Value Unit Range Abnormal Flag Note LastModifiedBy Organization Detail LastModifiedTime 02/09/20 25 02/08/2025 imagi ng/di agnos tic resul t No observ ation record ed. [email or web address] [facility] [address] [place], [address], 02/12/2025 11:57:54 Result Notes None recorded. Problems Name Problem SNOMED Code Status Onset Date Resolution Date Notes Provider Name and Address Organization Details Recorded Time Essential hypertens ion 23459046 Active 2007 ESSENTIAL HYPERTENS ION; 8 2:16PM by Karla Joseph LPN, Office Visit; Promoted; acuity set as *; Not Available [facility] 3 03:17:47 Allergic rhinitis 46744642 Active 2007 ALLERGIC RHINITIS; 8 2:16PM by Karla Joseph LPN, Office Visit; Promoted; acuity set as *; Not Available [facility] 3 03:17:47 Persisten t insomnia 996039628 Active 2007 PERSISTEN T INSOMNIA; 8 2:16PM by Karla Joseph LPN, Office Visit; Promoted; acuity set as *; Not Available [facility] 3 03:17:52 Fracture of ankle 54859893 Active 2007 Ankle Fracture; 8 2:16PM by Karla Joseph LPN, Office Visit; Promoted; acuity set as *; Not Available [facility] 3 03:17:53 Peptic ulcer 15301739 Active 2007 PEPTIC ULCER; 8 2:16PM by Karla Joseph LPN, Office Visit; Promoted; acuity set as *; Not Available [facility] 3 03:17:53 Type 1 diabetes mellitus 29233362 Active 2007 DIABETES MELLITUS TYPE I; 8 2:16PM by Karla Joseph LPN, Office Visit; Promoted; acuity set as *; Not Available [facility] 3 03:17:58 Constipat ion 53982002 Active 2007 CONSTIPAT ION; 8 2:16PM by Karla Joseph LPN, Office Visit; Promoted; acuity set as *; Not Available [facility] 3 03:17:58 Amputated above knee 920442873 Active 2007 ABOVE KNEE AMPUTATIO N STATUS; 8 2:16PM by Karla Joseph LPN, Office Visit; Promoted; acuity set as *; Not Available [facility] 3 03:17:59 History of depressio n 842401517 Active 2007 DEPRESSIO N, NOS; 8 2:16PM by Karla Joseph LPN, Office Visit; Promoted; acuity set as *; Not Available [facility] 3 03:18:00 Hyperglyc emia due to type 2 diabetes mellitus 69980427065 9109 Active 2023 NATHANAEL tavarez, [facility] 4 13:09:52 Chronic back pain greater than three months duration 56556318507 2 Active 2023 NATHANAEL tavarez, [facility] 4 15:23:19 Blepharit is of right eyelid 90107369050 9103 Active 2024 NATHANAEL tavarez, [facility] 5 15:11:18 Congestiv e heart failure 66690632 Active 2024 NATHANAEL tavarez, [facility] 5 16:21:48 Acute right otitis media 917060286 [facility] 5 16:28:04 Pain of right shoulder joint 52610461996 701838 Active 2024 NATHANAEL tavarez, [facility] 5 17:59:42 Hepatospl enomegaly 06440218 Active 2024 [facility] 5 14:35:12 Thrombocy topenic disorder 455309390 Active 2024 [facility] 5 14:35:13 Bilateral lower limb edema 100136302 Active 2024 [facility] 5 15:35:25 Acute urinary tract infection 691610836 Active 2024 [facility] 5 14:32:57 Sarcnilo is 91641570 Active 2024 NATHANAEL FISHER [facility] Chas 5 14:33:01 Problem Notes None recorded. Medical Equipment None Reported. Allergies Allergen ID Allergen Name Allergen Category Reaction Reaction Severity Criticality Documentation Date Start Date Code Code System Note Provider Name and Address Organization Details Recorded Time 66876 Product containin g penicilli n (product) medicatio n Not available Not available Not available 11/28/2022 52669 8001 SNOMED Comme nt: Recor ded 09/01 2:16P M by Brsieida Joseph LPN, Offic e Visit ; Promo joanne; Shruthi wade ce: *; ; Not Available [facility] 3 02:25:17 44299 Substance with sulfonami de structure and antibacte rial mechanism of action (substanc e) medicatio n Not available Not available Not available 03/22/2025 07391 8003 SNOMED Not Available david - External Data Service - prod 5 06:48:45 10241 sulfameth oxazole / trimethop rim medicatio n rash Not available [facility] 03/22/20252007 47200 RxNorm Not Available david - External Data [...] Recorded 8 2:43PM by Jory George CMT, [employer] Summary; Refill Quantity: 0; Not Available [...] Recorded 8 2:43PM by Jory George CMT, [employer] Summary; Refill Quantity: 0; Not Available [...] Address Organization Details Last Updated DateTime 5 758115. 51 g 90 /min 25 /min 98.7 [degF] 96 % 126/76 mm[Hg] NATHANAEL VICTORIA [facility], [facility] 5 17:28:46 Social History None recorded. Functional Status None recorded. Mental Status None recorded. Family History Nothing Reported. Medical History No medical history recorded. Immunizations Vaccine Type Date Status Note Provider Nam e and Address Organization Details Recorded Time influenza, unspecified formulation 8 completed Not Available [facility] 04/05/2025 12:29:13 Influenza, split virus, trivalent, preservative 0 completed Not Available [facility] 04/05/2025 12:29:13 COVID-19, mRNA, LNP-S, PF, 100 mcg/0.5mL dose or 50 mcg/0.25mL dose 1 completed Not Available [facility] 04/05/2025 12:29:13 COVID-19, mRNA, LNP-S, PF, 100 mcg/0.5mL dose or 50 mcg/0.25mL dose 1 completed Not Available [facility] 04/05/2025 12:29:13 Influenza, split virus, quadrivalent, PF 1 completed Not Available [facility] 04/05/2025 12:29:13 COVID-19, mRNA, LNP-S, PF, 100 mcg/0.5mL dose or 50 mcg/0.25mL dose 1 completed Not Available [facility] 04/05/2025 12:29:13 Influenza, split virus, quadrivalent, PF 2 completed Not Available [facility] 04/05/2025 12:29:13 Influenza, split virus, quadrivalent, PF 3 completed Not Available [facility] 04/05/2025 12:29:13 Influenza, split virus, trivalent, preservative 4 completed Not Available [facility] 04/05/2025 12:29:13 COVID-19, mRNA, LNP-S, PF, 50 mcg/0.5 mL 5 completed Not Available [facility] 04/05/2025 12:29:13 Past Encounters Encounter ID Performer Location Encounter Start Date Encounter Closed Date Diagnosis/Indication Diagnosis SNOMED-CT Code Diagnosis ICD10 Code Diagnosis IMO Codes Diagnosis Note [id number] Chris Parker DO [facility]) [address] [place], [place] [address] 01/11/2025 12:12:21 01/16/2025 10:56:12 Hyperglycemia due to type 2 diabetes mellitus 1596301371 92450 E11.65 Z79.4 [id number] Chris Parker DO [facility]) [address] [place] [address] 01/15/2025 12:18:30 01/17/2025 08:49:31 Type 1 diabetes mellitus 43254375 E10.9 Hepatosplenomegaly 10395 000 R16.2 19194 Pneumonia 165775524 J18. 9 [id number] Chris Parker DO [facility]) [address] [place] [address] 01/18/2025 09:41:48 01/23/2025 16:25:08 [id number] Chris Parker [facility]) [address] [place] [address] 01/22/2025 15:25:32 01/24/2025 09:26:09 Congestive heart failure 24729273 I50.9 Type 1 brad betes mellitus 41374066 E10.9 Hepatosplenomegaly 94137 000 R16.2 52458 Health Concerns Section Related Observation LastModified by Organization Detai ls LastModified Time None Recorded Concern Status LastModified by Organization Details LastModified Time None Recorded Payers Encounter Date Sequence Insurance Name Policy Number Policy Pate Covered Member ID Pate Member ID Guarantor Name 01/22/2025 1 [place] Marciano Alonso [id number] Marciano Alonso 01/22/2025 2 [place] Marciano Alonso [id number] Marciano Recinos [place] Notes Date Note Type Note Provider Name and Address Organization Details Recorded Time 01/22/2025 text/html COPDReported by PatientHPI:For associated symptoms, patient reportsobesity. For onset/timing, patient reportsmultiple times per day. For duration, patient reportshas noted for years.ROS as noted in the HPI ER follow up, discuss care and weight gain. Chris Parker, DO [address] [place] [address], [phone], RASHEED Nazario [facility] 01/23/2025 14:50:00
--- OUTSIDE RECORDS SUMMARY | 2025-04-14 20:35 | XMS_ITS | Encounter Summary ---
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
--- OUTSIDE RECORDS SUMMARY | 2025-04-14 20:35 | XMS_ITS | Encounter Summary ---
Author Organization [facility] Address [address] [place] [address] Care Team Providers Care Station Mechanic Apprentice Name Role Phone Cuba Solano MD Primary Care Provider +1 -[phone] Encounter Details Date Type Department Care Team (Latest Contact Info) Description 06/26/2004 Outpatient Historical [facility] Family Medicine [place] 0[address] [address] Keyona Mccloud, REFRIGERATION PLANT CORK INSULATOR NO ADDRESS ON FILE ALLERGY, UNSPECIFIED (Primary Dx) Social History Tobacco Use Types Packs/Day Years Used Date Smoking Tobacco: Never Assessed Sex and Gender Information Value Date Recorded Sex Assigned at Not on file 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
--- OUTSIDE RECORDS SUMMARY | 2025-04-14 20:35 | XMS_ITS | Encounter Summary ---
Author Organization [facility] Address [address] [place] [address] Care Team Providers Care Anvil Seating Press Operator Name Role Phone Cuba Solano MD Primary Care Provider +1 -[phone] Encounter Details Date Type Department Care Team (Latest Contact Info) Description 06/11/[address] 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
--- OUTSIDE RECORDS SUMMARY | 2025-04-14 20:35 | XMS_ITS | Encounter Summary ---
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
--- OUTSIDE RECORDS SUMMARY | 2025-04-14 20:35 | XMS_ITS | Encounter Summary ---
Author Organization [facility] Address [address] [place] [address] Care Team Providers Care Heater Mechanic Name Role Phone Cuba Solano MD Primary Care Provider +1 -[phone] Encounter Details Date Type Department Care Team (Latest Contact Info) Description 09/11/2004 Outpatient Historical [facility] Services [facility] [place] 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
--- OUTSIDE RECORDS SUMMARY | 2025-04-14 20:35 | XMS_ITS | Encounter Summary ---
Author Organization [facility] Address [address] [place] [address] Care Team Providers Care Operations Dispatcher Name Role Phone Cuba Solano MD Primary Care Provider +1 -[phone] Encounter Details Date Type Department Care Team (Latest Contact Info) Description 11/26/2004 Outpatient Historical [facility] 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
--- OUTSIDE RECORDS SUMMARY | 2025-04-14 20:35 | XMS_ITS | Encounter Summary ---
Author Organization [facility] Address [address] [place] [address] Care Team Providers Care Property Preservation Specialist Name Role Phone Cuba Solano MD Primary Care Provider +1 -[phone] Encounter Details Date Type Department Care Team (Late st Contact Info) Description 09/11/2004 Outpatient Historical [facility] 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
--- OUTSIDE RECORDS SUMMARY | 2025-04-14 20:35 | XMS_ITS | Encounter Summary ---
Author Organization [facility] Address [address] [place] [address] Care Team Providers Care Supervisor Cleaning And Annealing Name Role Phone Cuba Solano MD Primary Care Provider +1 [phone] Encounter Details Date Type Department Care Team (Late st Contact Info) Description 09/02/2004 Outpatient Historical [facility] Family Medicine [place]ica [place] [id number] [address] Social History Tobacco Use Types Packs/Day Years Used Date Smoking Tobacco: Never Assessed Sex and Gender Information Value Date Recorded Sex Assigned at Not on file 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
--- OUTSIDE RECORDS SUMMARY | 2025-04-14 20:35 | XMS_ITS | Encounter Summary ---
Author Organization [facility] Address [address] [place] [address] Care Team Providers Care Flight Operations Coordinator Name Role Phone Cuba Solano MD Primary Care Provider +1 [phone] Encounter Details Date Type Department Care Team (Latest Contact Info) Description 10/21/2004 Outpatient Historical [facility] Family Medicine Angelica [facility] [address] [address] Huey Upton Jr., MD [address] [place] [address] 248 [facility] [address] [place] [address] ACUTE SINUSITIS NOS (Primary Dx) Social History Tobacco Use Types Packs/Day Years Used Date Smoking Tobacco: Never Assessed Sex and Gender Information Value Date Recorded Sex Assigned at Not on file Legal 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
--- OUTSIDE RECORDS SUMMARY | 2025-04-14 20:35 | XMS_ITS | Encounter Summary ---
Author Organization [facility] Address [address] [place] [address] Care Team Providers Care Application Integration Engineer Name Role Phone Cuba Solano MD Primary Care Provider [phone] [phone] Encounter Details Date Type Department Care Team (Latest Contact Info) Description 05/13/2004 Outpatient [facility] Family Medicine Angelica [address] [address] Donte Borrego MD NO ADDRESS ON FILE DIABETES MELLITUS TYPE II UNCONTR UNCOMPL (Primary Dx); Benign hypertension; Dermatitis due to plant Social History Tobacco Use Types Packs/Day Years Used Date Smoking Tobacco: Never Assessed Sex and Gender Information Value Date Recorded Sex Assigned at Not on file 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
--- OUTSIDE RECORDS SUMMARY | 2025-04-14 20:35 | XMS_ITS | Encounter Summary ---
Author Organization [facility] Address [address] [place] [address] Care Team Providers Care Casino Attendant Name Role Phone Cuba Solano MD Primary Care Provider +1 [phone] Encounter Details Date Type Department Care Team (Latest Contact Info) Description 09/03/2004 Outpatient Historical [facility] Family Medicine Angelica [facility] [address] [address] Huey Upton Jr., MD [address] [place] [address] 248 [facility] [address] [place] [address] DIABETES MELLITUS TYPE II-UNCOMPL (CMS/HCC) (Primary Dx); JOINT PAIN-L/LEG Social History Tobacco Use Types Packs/Day Years Used Date Smoking Tobacco: Never Assessed Sex and Gender Information Value Date Recorded Sex Assigned at Not on file Legal 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
--- OUTSIDE RECORDS SUMMARY | 2025-04-14 20:35 | XMS_ITS | Continuity of Care Document ---
Author Organization [facility] - Aravind Barboza [facility], [place], [facility]) Address [address] [place] [address] Assessment No assessment recorded. Plan of Treatment [...] Modified By Organization Details Last Modified Time 04/05/2025 [id number] Sugars too high, increase tresiba to 120 and aspart to 60 units. [email or web address] Not available 04/05/2025 15:03:14 Reason for Referral None Reported. Problems Name Problem SNOMED Code Status Onset Date Resolution Date Notes Provider Name and Address Organization Details Recorded Time Essential hypertens ion 62595410 Active 2007 ESSENTIAL HYPERTENS ION; 8 2:16PM by Karla Joseph LPN, Office Visit; Promoted; acuity set as *; Not Available [facility] 3 03:17:47 Allergic rhinitis 72471560 Active 2007 ALLERGIC RHINITIS; 8 2:16PM by Karla Joseph LPN, Office Visit; Promoted; acuity set as *; Not Available [facility] 3 03:17:47 Persisten t insomnia 382835409 Active 2007 PERSISTEN T INSOMNIA; 8 2:16PM by Karla Joseph LPN, Office Visit; Promoted; acuity set as *; Not Available [facility] 3 03:17:52 Fracture of ankle 87881810 Active 2007 Ankle Fracture; 8 2:16PM by Karla Joseph LPN, Office Visit; Promoted; acuity set as *; Not Available [facility] 3 03:17:53 Peptic ulcer 29961124 Active 2007 PEPTIC ULCER; 8 2:16PM by Karla Joseph LPN, Office Visit; Promoted; acuity set as *; Not Available [facility] 3 03:17:53 Type 1 diabetes mellitus 89024410 Active 2007 DIABETES MELLITUS TYPE I; 8 2:16PM by Karla Joseph LPN, Office Visit; Promoted; acuity set as *; Not Available [facility] 3 03:17:58 Constipat ion 14461934 Active 2007 CONSTIPAT ION; 8 2:16PM by Karla Joseph LPN, Office Visit; Promoted; acuity set as *; Not Available [facility] 3 03:17:58 Amputated above knee 406812495 Active 2007 ABOVE KNEE AMPUTATIO N STATUS; 8 2:16PM by Karla Joseph LPN, Office Visit; Promoted; acuity set as *; Not Available [facility] 3 03:17:59 History of depressio n 139394353 Active 2007 DEPRESSIO N, NOS; 8 2:16PM by Karla Joseph LPN, Office Visit; Promoted; acuity set as *; Not Available [facility] 3 03:18:00 Hyperglyc emia due to type 2 diabetes mellitus 05478654605 9109 Active 2023 NATHANAEL tavarez [facility] 4 13:09:52 Chronic back pain greater than three months duration 82072469225 2 Active 2023 NATHANAEL tavarez [facility] 4 15:23:19 Blepharit is of right eyelid 43382030265 9103 Active 2024 NATHANAEL tavarez [facility] 5 15:11:18 Congestiv e heart failure 36603422 Active [address] [facility] 5 16:21:48 Acute right otitis media 933398951 Active [address] [facility] 5 16:28:04 Pain of right shoulder joint 81093083402 048406 Active [address] [facility] 17:59:42 Hepatospl enomegaly 01803719 Active [address] [facility] 14:35:12 Thrombocy topenic disorder 125232358 Active [address] [facility] 14:35:13 Bilateral lower limb edema 159297947 Active [address] [facility] 15:35:25 Acute urinary tract infection 022947255 Active [address] [facility] 14:32:57 Sarcoidos is 16867374 Active [address] [facility] 14:33:01 Problem Notes None recorded. Medical Equipment None Reported. Allergies Allergen ID Allergen Name Allergen Category Reaction Reaction Severity Criticality Documentation Date Start Date Code Code System Note Provider Name and Address Organization Details Recorded Time 40061 Product containin g penicilli n (product) medicatio n Not available Not available Not available 11/28/2022 35422 8001 SNOMED Comme nt: Recor ded 09/01 2:16P M by Briseida Joseph LPN, Offic e Visit ; Promo joanne; Signi fican ce: *; ; Not Available [facility] 3 02:25:17 60223 Substance with sulfonami de structure and antibacte rial mechanism of action (substanc e) medicatio n Not available Not available Not available 03/22/2025 27658 8003 SNOMED Not Available david - External Data Service - prod 5 06:48:45 16801 sulfameth oxazole / trimethop rim medicatio n rash Not available [facility] 03/22/20252007 46600 RxNorm Not Available david - External Data [...] Address Organization Details Last Updated DateTime 5 567961. 64 g 65 /min 18 /min 96.2 [degF] 100 % 123/67 mm[Hg] NATHANAEL VICTORIA [facility] 5 15:00:57 Social History None recorded. Functional Status None recorded. Mental Status None recorded. Family History Nothing Reported. Medical History No medical history recorded. Immunizations Vaccine Type Date Status Note Provider Nam e and Address Organization Details Recorded Time influenza, unspecified formulation 8 completed Not Available [facility] 04/05/2025 12:29:13 Influenza, split virus, trivalent, preservative 0 completed Not Available [facility] 04/05/2025 12:29:13 COVID-19, mRNA, LNP-S, PF, 100 mcg/0.5mL dose or 50 mcg/0.25mL dose 1 completed Not Available [facility] 04/05/2025 12:29:13 COVID-19, mRNA, LNP-S, PF, 100 mcg/0.5mL dose or 50 mcg/0.25mL dose 1 completed Not Available [facility] 04/05/2025 12:29:13 Influenza, split virus, quadrivalent, PF 1 completed Not Available [facility] 04/05/2025 12:29:13 COVID-19, mRNA, LNP-S, PF, 100 mcg/0.5mL dose or 50 mcg/0.25mL dose 1 completed Not Available [facility] 04/05/2025 12:29:13 Influenza, split virus, quadrivalent, PF 2 completed Not Available [facility] 04/05/2025 12:29:13 Influenza, split virus, quadrivalent, PF 3 completed Not Available [facility] 04/05/2025 12:29:13 Influenza, split virus, trivalent, preservative 4 completed Not Available [facility] 04/05/2025 12:29:13 COVID-19, mRNA, LNP-S, PF, 50 mcg/0.5 mL 5 completed Not Available [facility] 04/05/2025 12:29:13 Past Encounters Encounter ID Performer Location Encounter Start Date Encounter Closed Date Diagnosis/Indication Diagnosis SNOMED-CT Code Diagnosis ICD10 Code Diagnosis IMO Codes Diagnosis Note [id number] Chris Parker DO [facility] ([facility]) [address] [place] [address] 03/22/2025 09:18:02 03/26/2025 11:28:18 Post-discharge follow-up 063007409 Z09 926205 Acute urin constance tract infection 600192631 N39.0 073981 Essential hypertension 90568413 I10 Congestive heart failure 47310559 I50.9 Hyperglyce jaleel due to type 2 diabetes mellitus 0462236622 26929 E11.65 Z79.4 Sarcoidosis 31106618 D86 .9 92143 [id number] Chris Parker DO [facility] ([facility]) [address] [place] [address] 04/05/2025 12:29:02 04/12/2025 12:50:40 Type 1 diabetes mellitus 36843664 E10.9 Health Concerns Section Related Observation LastModified by Organization Detai ls LastModified Time None Recorded Concern Status LastModified by Organization Details LastModified Time None Recorded Payers Encounter Date Sequence Insurance Name Policy Number Policy Pate Covered Member ID Pate Member ID Guarantor Name 04/05/2025 1 [place] Marciano Jorje Alonso [id number] Marciano Alonso 04/05/2025 2 [place] Marciano Alonso [id number] Marciano Alonso Notes Date Note Type Note Provider Name and Address Organization Details Recorded Time 04/05/2025 text/html COPDReported by PatientHPI:For associated symptoms, patient reportsobesity. For onset/timing, patient reportsmultiple times per day. For duration, patient reportshas noted for years.ROS as noted in the HPI staff reports sugars are too high. Chris Parker DO [address] [place] [address], [address], [facility] 04/11/2025 18:06:37
--- OUTSIDE RECORDS SUMMARY | 2025-04-14 20:35 | XMS_ITS | Encounter Summary ---
Author Organization [facility] Address [address] [place] [address] Care Team Providers Care Taxicab Coordinator Name Role Phone Cuba Solano MD Primary Care Provider [phone] [phone] Encounter Details Date Type Department Care Team (Latest Contact Info) Description 11/12/2004 Outpatient Historical 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
--- OUTSIDE RECORDS SUMMARY | 2025-04-14 20:35 | XMS_ITS | Encounter Summary ---
Author Organization [facility] Address [address] [place] [address] Care Team Providers Care Director Of Financial Reporting Name Role Phone Cuba Solano MD Primary Care Provider +1 [phone] Encounter Details Date Type Department Care Team (Latest Contact Info) Description 11/18/2004 Outpatient Historical [facility] 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
--- OUTSIDE RECORDS SUMMARY | 2025-04-14 20:35 | XMS_ITS | Encounter Summary ---
Author Organization [facility] Address [address] [place] [address] Care Team Providers Care Sales Property Manager Name Role Phone Cuba Solano MD Primary Care Provider +1 [phone] Encounter Details Date Type Department Care Team (Latest Contact Info) Description 07/14/2004 Outpatient Historical [facility] Family Medicine [place] [address] [address] Keyona Mccloud, LUCIEN NO ADDRESS ON FILE THRUSH (Primary Dx); JOINT PAIN-L/LEG Social History Tobacco Use Types Packs/Day Years Used Date Smoking Tobacco: Never Assessed Sex and Gender Information Value Date Recorded Sex Assigned at Not on file 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
--- OUTSIDE RECORDS SUMMARY | 2025-04-14 20:36 | XMS_ITS | Continuity of Care Document ---
Author Organization [place] - Aravind Moncada [facility] Mikhail, Chas, [facility]) Address [address] [facility] [place] [address] Assessment No assessment recorded. Plan of Treatment [...] resul t No observ ation record ed. [email or web address] [facility] [address] [place], [address], 02/12/2025 11:57:54 Result Notes None recorded. Problems Name Problem SNOMED Code Status Onset Date Resolution Date Notes Provider Name and Address Organization Details Recorded Time Essential hypertens ion 97019075 Active 2007 ESSENTIAL HYPERTENS ION; 8 2:16PM by Karla Joseph LPN, Office Visit; Promoted; acuity set as *; Not Available [facility] 3 03:17:47 Allergic rhinitis 54498359 Active 2007 ALLERGIC RHINITIS; 8 2:16PM by Karla Joseph LPN, Office Visit; Promoted; acuity set as *; Not Available [facility] 3 03:17:47 Persisten t insomnia 942014435 Active 2007 PERSISTEN T INSOMNIA; 8 2:16PM by Karla Joseph LPN, Office Visit; Promoted; acuity set as *; Not Available [facility] 3 03:17:52 Fracture of ankle 59339486 Active 2007 Ankle Fracture; 8 2:16PM by Karla Joseph LPN, Office Visit; Promoted; acuity set as *; Not Available [facility] 3 03:17:53 Peptic ulcer 28285194 Active 2007 PEPTIC ULCER; 8 2:16PM by Karla Joseph LPN, Office Visit; Promoted; acuity set as *; Not Available [facility] 3 03:17:53 Type 1 diabetes mellitus 67791782 Active 2007 DIABETES MELLITUS TYPE I; 8 2:16PM by Karla Joseph LPN, Office Visit; Promoted; acuity set as *; Not Available [facility] 3 03:17:58 Constipat ion 59154668 Active 2007 CONSTIPAT ION; 8 2:16PM by Karla Joseph LPN, Office Visit; Promoted; acuity set as *; Not Available [facility] 3 03:17:58 Amputated above knee 038968738 Active 2007 ABOVE KNEE AMPUTATIO N STATUS; 8 2:16PM by Karla Joseph LPN, Office Visit; Promoted; acuity set as *; Not Available [facility] 3 03:17:59 History of depressio n 760632680 Active 2007 DEPRESSIO N, NOS; 8 2:16PM by Karla Joseph LPN, Office Visit; Promoted; acuity set as *; Not Available [facility] 3 03:18:00 Hyperglyc emia due to type 2 diabetes mellitus 07385157356 9109 Active 2023 NATHANAEL tavarez [facility] 4 13:09:52 Chronic back pain greater than three months duration 38154732202 2 Active 2023 NATHANAEL tavarez [facility] 4 15:23:19 Blepharit is of right eyelid 00457793086 9103 Active 2024 NATHANAEL VICTORIA [facility] 5 15:11:18 Congestiv e heart failure 71659115 Active 2024 NATHANAEL VICTORIA [facility] 5 16:21:48 Acute right otitis media 516451543 Active 2024 NATHANAEL VICTORIA [facility] 5 16:28:04 Pain of right shoulder joint 41839562528 301940 Active 2024 NATHANAEL VICTORIA [facility] 5 17:59:42 Hepatospl enomegaly 27006306 Active 2024 NATHANAEL VICTORIA [facility] 5 14:35:12 Thrombocy topenic disorder 522519434 Active 2024 NATHANAEL VICTORIA [facility] 5 14:35:13 Bilateral lower limb edema 924928259 Active 2024 MARLON HAEFFSARMAD [facility] 5 15:35:25 Acute urinary tract infection 958075197 Active 2024 ANTHANAEL VICTORIA [facility] 5 14:32:57 Sarcoidos is 50447325 Active 2024 NATHANAEL VICTORIA [facility] 14:33:01 Problem Notes None recorded. Medical Equipment None Reported. Allergies Allergen ID Allergen Name Allergen Category Reaction Reaction Severity Criticality Documentation Date Start Date Code Code System Note Provider Name and Address Organization Details Recorded Time 89628 Product containin g penicilli n (product) medicatio n Not available Not available Not available 11/28/2022 32493 8001 SNOMED Comme nt: Recor ded 09/01 2:16P M by Briseida Joseph LPN, Offic e Visit ; Domingo rubio; Shruthi wade ce: *; ; Not Available [facility] 3 02:25:17 80784 Substance with sulfonami de structure and antibacte rial mechanism of action (substanc e) medicatio n Not available Not available Not available 03/22/2025 59502 8003 SNOMED Not Available david - [employer] - prod 5 06:48:45 10043 sulfameth oxazole / trimethop rim medicatio n rash Not available [facility] 03/22/20252007 15176 RxNorm Not Available [employer] - prod 5 06:50:41 [...] Address Organization Details Last Updated DateTime 5 685230. 51 g 90 /min 25 /min 98.7 [degF] 96 % 126/76 mm[Hg] NATHANAEL VICTORIA [facility] 5 17:28:46 Social History None recorded. Functional Status None recorded. Mental Status None recorded. Family History Nothing Reported. Medical History No medical history recorded. Immunizations Vaccine Type Date Status Note Provider Nam e and Address Organization Details Recorded Time influenza, unspecified formulation 8 completed Not Available [facility] 04/05/2025 12:29:13 Influenza, split virus, trivalent, preservative 0 completed Not Available [facility] 04/05/2025 12:29:13 COVID-19, mRNA, LNP-S, PF, 100 mcg/0.5mL dose or 50 mcg/0.25mL dose 1 completed Not Available [facility] 04/05/2025 12:29:13 COVID-19, mRNA, LNP-S, PF, 100 mcg/0.5mL dose or 50 mcg/0.25mL dose 1 completed Not Available [facility] 04/05/2025 12:29:13 Influenza, split virus, quadrivalent, PF 1 completed Not Available [facility] 04/05/2025 12:29:13 COVID-19, mRNA, LNP-S, PF, 100 mcg/0.5mL dose or 50 mcg/0.25mL dose 1 completed Not Available [facility] 04/05/2025 12:29:13 Influenza, split virus, quadrivalent, PF 2 completed Not Available [facility] 04/05/2025 12:29:13 Influenza, split virus, quadrivalent, PF 3 completed Not Available [facility] 04/05/2025 12:29:13 Influenza, split virus, trivalent, preservative 4 completed Not Available [facility] 04/05/2025 12:29:13 COVID-19, mRNA, LNP-S, PF, 50 mcg/0.5 mL 5 completed Not Available [facility] 04/05/2025 12:29:13 Past Encounters Encounter ID Performer Location Encounter Start Date Encounter Closed Date Diagnosis/Indication Diagnosis SNOMED-CT Code Diagnosis ICD10 Code Diagnosis IMO Codes Diagnosis Note [id number] Chris CarranzaftDO [facility] ([facility]) [address] [place] [address] 01/11/2025 12:12:21 01/16/2025 10:56:12 Hyperglycemia due to type 2 diabetes mellitus 8468473325 33118 E11.65 Z79.4 [id number] Chris DO Keith [facility] ([facility]) [address] [place] [address] 01/15/2025 12:18:30 01/17/2025 08:49:31 Type 1 diabetes mellitus 18625068 E10.9 Hepatosplenomegaly 77013 000 R16.2 10881 Pneumonia 656670990 J18. 9 [id number] Chris DO Keith [facility] ([facility]) [address] [place] [address] 01/18/2025 09:41:48 01/23/2025 16:25:08 Health Concerns Section Related Observation LastModified by Organization Detai ls LastModified Time None Recorded Concern Status LastModified by Organization Details LastModified Time None Recorded Payers Encounter Date Sequence Insurance Name Policy Number Policy Pate Covered Member ID Pate Member ID Guarantor Name 01/18/2025 1 [place] Marciano Jorje Alonso [id number] Marciano Alonso 01/18/2025 2 [place] Marciano Alonso [id number] Marciano Alonso Notes Date Note Type Note Provider Name and Address Organization Details Recorded Time 01/22/2025 text/html COPDReported by PatientHPI:For associated symptoms, patient reportsobesity. For onset/timing, patient reportsmultiple times per day. For duration, patient reportshas noted for years.ROS as noted in the HPI ER follow up, discuss care and weight gain. Chris Parker DO [address] [place] [address], [address], [facility] 01/23/2025 14:50:00
--- OUTSIDE RECORDS SUMMARY | 2025-04-14 20:36 | XMS_ITS | Encounter Summary ---
Author Organization [facility] Address [address] [place] [address] Care Team Providers Care Hotel Yardperson Name Role Phone Cuba Solano MD Primary Care Provider +1 [phone] Encounter Details Date Type Department Care Team (Late st Contact Info) Description 09/06/2000 Outpatient Historical [place] [address] [place] [address] Encounter for long-term (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 of other medications (Primary Dx); Other convulsions Social History Tobacco Use Types Packs/Day Years Used Date Smoking Tobacco: Never Assessed Sex and Gender Information Value Date Recorded Sex Assigned at Not on file 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
--- OUTSIDE RECORDS SUMMARY | 2025-04-14 20:36 | XMS_ITS | Encounter Summary ---
Author Organization [facility] Address [address] [place] [address] Care Team Providers Care Automobile Body Repairer Name Role Phone Cuba Solano MD Primary Care Provider +1 [phone] Encounter Details Date Type Department Care Team (Latest Contact Info) Description 11/22/2000 Outpatient Historical [facility] Family Medicine [place] [address] [address] Donte Borrego MD NO ADDRESS ON FILE Other and unspecified hyperlipidemia (Primary Dx); Encounter for long-term (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 of other medications Social History Tobacco Use Types Packs/Day Years Used Date Smoking Tobacco: Never Assessed Sex and Gender Information Value Date Recorded Sex Assigned at Not on file 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
--- OUTSIDE RECORDS SUMMARY | 2025-04-14 20:36 | XMS_ITS | Encounter Summary ---
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
--- OUTSIDE RECORDS SUMMARY | 2025-04-14 20:36 | XMS_ITS | Encounter Summary ---
Author Organization [facility] Address [address] [place] [address] Care Team Providers Care Cath Lab Radiological Technologist Name Role Phone Cuba Solano MD Primary Care Provider [phone] [phone] Encounter Details Date Type Department Care Team (Latest Contact Info) Description 05/30/2001 Outpatient Historical [facility] Family Medicine [place] [address] [address] Donte Borrego MD NO ADDRESS ON FILE HYPERTENSION NOS (Primary Dx); ACUTE SINUSITIS NOS; KERATODERMA, ACQUIRED; HYPERLIPIDEMIA NEC/NOS Social History Tobacco Use Types Packs/Day Years Used Date Smoking Tobacco: Never Assessed Sex and Gender Information Value Date Recorded Sex Assigned at Not on file 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
--- OUTSIDE RECORDS SUMMARY | 2025-04-14 20:36 | XMS_ITS | Encounter Summary ---
Author Organization [facility] Address [address] 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
--- OUTSIDE RECORDS SUMMARY | 2025-04-14 20:36 | XMS_ITS | Encounter Summary ---
Author Organization [facility] Address [address] [place] [address] Care Team Providers Care Cycling Instructor Name Role Phone Cuba Solano MD Primary Care Provider [phone] [phone] Encounter Details Date Type Department Care Team (Latest Contact Info) Description 04/07/2001 Outpatient Historical [facility] Family Medicine [place] [address] [address] Donte Borrego MD NO ADDRESS ON FILE HYPERTENSION NOS (Primary Dx); AFTERCARE INTERMEDIATE USE MEDICATN; ANEMIA NOS; VACCINE FOR INFLUENZA Social History Tobacco Use Types Packs/Day Years Used Date Smoking Tobacco: Never Assessed Sex and Gender Information Value Date Recorded Sex Assigned at Not on file 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
--- OUTSIDE RECORDS SUMMARY | 2025-04-14 20:36 | XMS_ITS | Encounter Summary ---
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
--- OUTSIDE RECORDS SUMMARY | 2025-04-14 20:36 | XMS_ITS | Encounter Summary ---
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
--- OUTSIDE RECORDS SUMMARY | 2025-04-14 20:36 | XMS_ITS | Continuity of Care Document ---
Author Organization [place] Aravind Moncada [facility], [place], [facility]) Address [address] [place] [address] Assessment No assessment recorded. Plan of Treatment [...] By Organization Details Last Modified Time 01/15/2025 [id number] evaluated in ER for chest pain and dyspnea; found to have pneumonia hematology work up for pancytopenia found enlarged spleen. he has been referred to IR for liver biopsy. Not available 01/15/2025 14:38:50 Reason for Referral None Reported. Results Created Date Observation Date Name Description Value Unit Range Abnormal Flag Note LastModifiedBy Organization Detail LastModifiedTime 02/09/20 25 02/08/2025 imagi ng/di agnos tic resul t No observ ation record ed. [email or web address] [place] [address] [address] [place], [address], 02/12/2025 11:57:54 Result Notes None recorded. Problems Name Problem SNOMED Code Status Onset Date Resolution Date Notes Provider Name and Address Organization Details Recorded Time Essential hypertens ion 58095382 Active 2007 ESSENTIAL HYPERTENS ION; 8 2:16PM by Karla Joseph LPN, Office Visit; Promoted; acuity set as *; Not Available [facility] 3 03:17:47 Allergic rhinitis 43794214 Active 2007 ALLERGIC RHINITIS; 8 2:16PM by Karla Joseph LPN, Office Visit; Promoted; acuity set as *; Not Available [facility] 3 03:17:47 Persisten t insomnia 967186035 Active 2007 PERSISTEN T INSOMNIA; 8 2:16PM by Karla Joseph LPN, Office Visit; Promoted; acuity set as *; Not Available [facility] 3 03:17:52 Fracture of ankle 53819410 Active 2007 Ankle Fracture; 8 2:16PM by Karla Joseph LPN, Office Visit; Promoted; acuity set as *; Not Available [facility] 3 03:17:53 Peptic ulcer 88544122 Active 2007 PEPTIC ULCER; 8 2:16PM by Karla Joseph LPN, Office Visit; Promoted; acuity set as *; Not Available [facility] 3 03:17:53 Type 1 diabetes mellitus 49219724 Active 2007 DIABETES MELLITUS TYPE I; 8 2:16PM by Karla Joseph LPN, Office Visit; Promoted; acuity set as *; Not Available [facility] 3 03:17:58 Constipat ion 82114682 Active 2007 CONSTIPAT ION; 8 2:16PM by Karla Joseph LPN, Office Visit; Promoted; acuity set as *; Not Available [facility] 3 03:17:58 Amputated above knee 387124299 Active 2007 ABOVE KNEE AMPUTATIO N STATUS; 8 2:16PM by Karla Joseph LPN, Office Visit; Promoted; acuity set as *; Not Available [facility] 3 03:17:59 History of depressio n 834880320 Active 2007 DEPRESSIO N, NOS; 8 2:16PM by Karla Joseph LPN, Office Visit; Promoted; acuity set as *; Not Available [facility] 3 03:18:00 Hyperglyc emia due to type 2 diabetes mellitus 84345535972 9109 Active 2023 NATHANAEL VICTORIA null, [facility] 4 13:09:52 Chronic back pain greater than three months duration 66748520845 2 Active 2023 NATHANAEL tavarez, [facility] 4 15:23:19 Blepharit is of right eyelid 38488303257 9103 Active 2024 NATHANAEL VICTORIA [facility] 5 15:11:18 Congestiv e heart failure 54252042 Active 2024 NATHANAEL VICTORIA [facility] 5 16:21:48 Acute right otitis media 055064884 Active 2024 NATHANAEL VICTORIA [facility] 5 16:28:04 Pain of right shoulder joint 30530298403 895851 Active 2024 NATHANAEL VICTORIA [facility] 5 17:59:42 Hepatospl enomegaly 84139653 Active 2024 NATHANAEL VICTORIA [facility] 5 14:35:12 Thrombocy topenic disorder 721000342 Active 2024 NATHANAEL VICTORIA [facility] 5 14:35:13 Bilateral lower limb edema 422437738 Active 2024 MARLON HAEFFSARMAD [facility] 5 15:35:25 Acute urinary tract infection 459251420 Active 2024 NATHANAEL VICTORIA [facility] 5 14:32:57 Sarcoidos is 80031664 Active 2024 NATHANAEL VICTORIA [facility] 5 14:33:01 Problem Notes None recorded. Medical Equipment None Reported. Allergies Allergen ID Allergen Name Allergen Category Reaction Reaction Severity Criticality Documentation Date Start Date Code Code System Note Provider Name and Address Organization Details Recorded Time 16225 Product containin g penicilli n (product) medicatio n Not available Not available Not available 11/28/2022 94513 8001 SNOMED Comme nt: Recor ded 09/01 2:16P M by Briseida Joseph LPN, Offic e Visit ; Promo joanne; Signi mauro ce: *; ; Not Available [facility] 3 02:25:17 28148 Substance with sulfonami de structure and antibacte rial mechanism of action (substanc e) medicatio n Not available Not available Not available 03/22/2025 68404 8003 SNOMED Not Available [employer] [employer] - prod 5 06:48:45 06658 sulfameth oxazole / trimethop rim medicatio n rash Not available [facility] 03/22/20252007 83684 RxNorm Not Available [employer] - prod 5 06:50:41 Medications [...] QD 2007 active Recorded 8 2:54PM by Karal Joseph LPN, Office Visit; Refill Quantity: 30; [...] Recorded 8 2:43PM by Jory George CMT, [facility] Summary; Refill Quantity: 0; Not Available [...] Address Organization Details Last Updated DateTime 5 845839. 89 g 112 /min 18 /min 98.4 [degF] 94 % 127/52 mm[Hg] NATHANAEL VICTORIA [facility], [facility] 5 13:47:12 Social History None recorded. Functional Status None recorded. Mental Status None recorded. Family History Nothing Reported. Medical History No medical history recorded. Immunizations Vaccine Type Date Status Note Provider Nam e and Address Organization Details Recorded Time influenza, unspecified formulation 8 completed Not Available [facility] 04/05/2025 12:29:13 Influenza, split virus, trivalent, preservative 0 completed Not Available [facility] 04/05/2025 12:29:13 COVID-19, mRNA, LNP-S, PF, 100 mcg/0.5mL dose or 50 mcg/0.25mL dose 1 completed Not Available [facility] 04/05/2025 12:29:13 COVID-19, mRNA, LNP-S, PF, 100 mcg/0.5mL dose or 50 mcg/0.25mL dose 1 completed Not Available [facility] 04/05/2025 12:29:13 Influenza, split virus, quadrivalent, PF 1 completed Not Available [facility] 04/05/2025 12:29:13 COVID-19, mRNA, LNP-S, PF, 100 mcg/0.5mL dose or 50 mcg/0.25mL dose 1 completed Not Available [facility] 04/05/2025 12:29:13 Influenza, split virus, quadrivalent, PF 2 completed Not Available [facility] 04/05/2025 12:29:13 Influenza, split virus, quadrivalent, PF 3 completed Not Available [facility] 04/05/2025 12:29:13 Influenza, split virus, trivalent, preservative 4 completed Not Available [facility] 04/05/2025 12:29:13 COVID-19, mRNA, LNP-S, PF, 50 mcg/0.5 mL 5 completed Not Available [facility] 04/05/2025 12:29:13 Past Encounters Encounter ID Performer Location Encounter Start Date Encounter Closed Date Diagnosis/Indication Diagnosis SNOMED-CT Code Diagnosis ICD10 Code Diagnosis IMO Codes Diagnosis Note [id number] Chris Parker DO [facility] ([facility] [address] [place] [address] 5 01/11/2025 12:12:21 01/16/2025 10:56:12 Hyperglycemia due to type 2 diabetes mellitus 5213190568 58720 E11.65 Z79.4 [id number] Chris Parker DO [facility] ([facility]) [address] [place] [address] 5 01/15/2025 12:18:30 01/17/2025 08:49:31 Type 1 diabetes mellitus 98667119 E10.9 Hepatosplenomegaly 61081 000 R16.2 24583 Pneumonia 640180554 J18. 9 [id number] Health Concerns Section Related Observation LastModified by Organization Detai ls LastModified Time None Recorded Concern Status LastModified by Organization Details LastModified Time None Recorded Payers Encounter Date Sequence Insurance Name Policy Number Policy Pate Covered Member ID Pate Member ID Guarantor Name 01/15/2025 1 [place] Marciano Alonso [id number] Marciano Alonso 01/15/2025 2 [place] Marciano Alonso [id number] Marciano Alonso Notes Date Note Type Note Provider Name and Address Organization Details Recorded Time 01/15/2025 text/html COPDReported by PatientHPI:For associated symptoms, patient reportsobesity. For onset/timing, patient reportsmultiple times per day. For duration, patient reportshas noted for years.ROS as noted in the [facility] ER follow up seen for chest pain. Chris Parker DO [address] [place] [address], [id number], [facility], [place] 01/15/2025 14:40:50
--- OUTSIDE RECORDS SUMMARY | 2025-04-14 20:36 | XMS_ITS | Encounter Summary ---
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
--- OUTSIDE RECORDS SUMMARY | 2025-04-14 20:36 | XMS_ITS | Encounter Summary ---
Author Organization [facility] Address [address] [place] [address] Care Team Providers Care Jet Dyeing Machine Operator Name Role Phone Cuba Solano MD Primary Care Provider [phone] Encounter Details Date Type Department Care Team (Latest Contact Info) Description 05/11/2001 Outpatient Historical [facility] [place] [address] [address] Donte Borrego MD NO ADDRESS ON FILE ACUTE SINUSITIS NOS (Primary Dx); CONJUNCTIVAL HEMORRHAGE; HYPERTENSION NOS Social History Tobacco Use Types Packs/Day Years Used Date Smoking Tobacco: Never Assessed Sex and Gender Information Value Date Recorded Sex Assigned at Not on file 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
--- OUTSIDE RECORDS SUMMARY | 2025-04-14 20:36 | XMS_ITS | Encounter Summary ---
Author Organization [facility] Address [address] [place] [address] Care Team Providers Care Auditing Coder Name Role Phone Cuba Solano MD Primary Care Provider [phone] [phone] Encounter Details Date Type Department Care Team (Latest Contact Info) Description 01/07/2001 Outpatient Historical [facility] Family Medicine [place] [facility] [address] [address] Zara Royal, DO [address] [place] [address] Unspecified essential hypertension (Primary Dx); Other and unspecified hyperlipidemia; Allergy, unspecified not elsewhere classified; Traumatic amputation of leg(s) (complete) (partial), unilateral, at or above knee, 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 Social History Tobacco Use Types Packs/Day Years Used Date Smoking Tobacco: Never Assessed Sex and Gender Information Value Date Recorded Sex Assigned at Not on file 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
--- OUTSIDE RECORDS SUMMARY | 2025-04-14 20:36 | XMS_ITS | Encounter Summary ---
Author Organization [facility] Address [address] [place] [address] Care Team Providers Care Aquatic Ecologist Name Role Phone Cuba Solano MD Primary Care Provider +1 [phone] Encounter Details Date Type Department Care Team (Latest Contact Info) Description 04/02/2004 Outpatient Historical [facility] Family Medicine [place] [address] [address] Donte Borrego MD NO ADDRESS ON FILE DIABETES MELLITUS TYPE II UNCONTR UNCOMPL (Primary Dx); GOUT NOS Social History Tobacco Use Types Packs/Day Years Used Date Smoking Tobacco: Never Assessed Sex and Gender Information Value Date Recorded Sex Assigned at Not on file 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
--- OUTSIDE RECORDS SUMMARY | 2025-04-14 20:36 | XMS_ITS | Encounter Summary ---
Author Organization [facility] Address [address] [place] [address] Care Team Providers Care Technical Specialist Cytology Name Role Phone Cuba Solano MD Primary Care Provider +1 [phone] Encounter Details Date Type Department Care Team (Latest Contact Info) Description 07/04/2001 Outpatient Historical [facility] Family Medicine [place] [address] [address] Donte Borrego MD NO ADDRESS ON FILE HYPERTENSION NOS (Primary Dx); HYPERLIPIDEMIA NEC/NOS; AFTERCARE COLOR WORKER USE MEDICATN; VACCINE FOR STREP PNEUMONIAE Social History Tobacco Use Types Packs/Day Years Used Date Smoking Tobacco: Never Assessed Sex and Gender Information Value Date Recorded Sex Assigned at Not on file 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
--- OUTSIDE RECORDS SUMMARY | 2025-04-14 20:36 | XMS_ITS | Encounter Summary ---
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
--- OUTSIDE RECORDS SUMMARY | 2025-04-14 20:36 | XMS_ITS | Continuity of Care Document ---
Author Organization [place] - Aravind Moncada [facility] Mikhail, Chas, [facility] ([facility]) Address [address] [place] [address] Assessment No assessment recorded. Plan of Treatment [...] By Organization Details Last Modified Time 02/05/2025 [id number] Abdomen worse. Leaking fluid. Planning to see oncology/hematolo gy today, plan to have liver biopsy tomorrow. Paracentesis in three days. Will add dose of metolazone today [email or web address] Not available 02/05/2025 15:12:52 Reason for Referral None Reported. Results Created Date Observation Date Name Description Value Unit Range Abnormal Flag Note LastModifiedBy Organization Detail LastModifiedTime 02/09/20 25 02/08/2025 imagi ng/di agnos tic resul t No observ ation record ed. [email or web address] [facility] [address] [place], [address], 02/12/2025 11:57:54 Result Notes None recorded. Problems Name Problem SNOMED Code Status Onset Date Resolution Date Notes Provider Name and Address Organization Details Recorded Time Essential hypertens ion 71697533 Active 2007 ESSENTIAL HYPERTENS ION; 8 2:16PM by Karla Joseph LPN, Office Visit; Promoted; acuity set as *; Not Available [facility] 3 03:17:47 Allergic rhinitis 21608186 Active 2007 ALLERGIC RHINITIS; 8 2:16PM by Karla Joseph LPN, Office Visit; Promoted; acuity set as *; Not Available [facility] 3 03:17:47 Persisten t insomnia 228299528 Active 2007 PERSISTEN T INSOMNIA; 8 2:16PM by Karla Joseph LPN, Office Visit; Promoted; acuity set as *; Not Available [facility] 3 03:17:52 Fracture of ankle 51419082 Active 2007 Ankle Fracture; 8 2:16PM by Karla Joseph LPN, Office Visit; Promoted; acuity set as *; Not Available [facility] 3 03:17:53 Peptic ulcer 58208343 Active 2007 PEPTIC ULCER; 8 2:16PM by Karla Joseph LPN, Office Visit; Promoted; acuity set as *; Not Available [facility] 3 03:17:53 Type 1 diabetes mellitus 43479712 Active 2007 DIABETES MELLITUS TYPE I; 8 2:16PM by Karla Joseph LPN, Office Visit; Promoted; acuity set as *; Not Available [facility] 3 03:17:58 Constipat ion 00361309 Active 2007 CONSTIPAT ION; 8 2:16PM by Karla Joseph LPN, Office Visit; Promoted; acuity set as *; Not Available [facility] 3 03:17:58 Amputated above knee 876935340 Active 2007 ABOVE KNEE AMPUTATIO N STATUS; 8 2:16PM by Karla Joseph LPN, Office Visit; Promoted; acuity set as *; Not Available [facility] 3 03:17:59 History of depressio n 054775638 Active 2007 DEPRESSIO N, NOS; 8 2:16PM by Karla Joseph LPN, Office Visit; Promoted; acuity set as *; Not Available [facility] 3 03:18:00 Hyperglyc emia due to type 2 diabetes mellitus 03542467912 9109 Active 2023 NATHANAEL tavarez, [facility] 4 13:09:52 Chronic back pain greater than three months duration 66635989646 2 Active 2023 NATHANAEL tavarez, [facility] 4 15:23:19 Blepharit is of right eyelid 53389079907 9103 Active 2024 NATHANAEL VICTORIA [facility], [facility] 5 15:11:18 Congestiv e heart failure 21431426 Active 2024 NATHANAEL VICTORIA [facility] 5 16:21:48 Acute right otitis media 847190978 Active 2024 NATHANAEL VICTORIA [facility] 5 16:28:04 Pain of right shoulder joint 84917282250 689130 Active 2024 NATHANAEL VICTORIA [facility] 5 17:59:42 Hepatospl enomegaly 57327440 Active 2024 NATHANAEL VICTORIA [facility] 5 14:35:12 Thrombocy topenic disorder 035500463 Active 2024 NATHANAEL VICTORIA [facility] 5 14:35:13 Bilateral lower limb edema 938235895 Active 2024 MARLON HAEFFSARMAD [facility] 5 15:35:25 Acute urinary tract infection 231602903 Active 2024 NATHANAEL VICTORIA [facility] 5 14:32:57 Sarcoidos is 17946575 Active 2024 NATHANAEL VICTORIA [facility], [place] 5 14:33:01 Problem Notes None recorded. Medical Equipment None Reported. Allergies Allergen ID Allergen Name Allergen Category Reaction Reaction Severity Criticality Documentation Date Start Date Code Code System Note Provider Name and Address Organization Details Recorded Time 34819 Product containin g penicilli n (product) medicatio n Not available Not available Not available 11/28/2022 44256 8001 SNOMED Comme nt: Recor ded 09/01 2:16P M by Briseida Joseph LPN, Offic e Visit ; Promo joanne; Shruthi wade ce: *; ; Not Available [facility] 3 02:25:17 01633 Substance with sulfonami de structure and antibacte rial mechanism of action (substanc e) medicatio n Not available Not available Not available 03/22/2025 60928 8003 SNOMED Not Available david - [employer] - prod 5 06:48:45 05660 sulfameth oxazole / trimethop rim medicatio n rash Not available [facility] 03/22/20252007 63765 RxNorm Not Available [employer] - prod 5 06:50:41 Medications [...] Recorded 8 2:43PM by Jory George CMT, [employer] Summary; Refill Quantity: 0; Not Available [...] Recorded 8 2:43PM by Jory George CMT, [employer] Summary; Refill Quantity: 0; Not Available [...] Recorded 8 2:43PM by Jory George CMT, [facility] Summary; Refill Quantity: 0; Not [...] Address Organization Details Last Updated DateTime 5 967266. 7 g 92 /min 20 /min 98.2 [degF] 93 % 102/61 mm[Hg] NATHANAEL VICTORIA [facility], [facility] 5 14:31:47 Social History None recorded. Functional Status None recorded. Mental Status None recorded. Family History Nothing Reported. Medical History No medical history recorded. Immunizations Vaccine Type Date Status Note Provider Nam e and Address Organization Details Recorded Time influenza, unspecified formulation 8 completed Not Available [facility] 04/05/2025 12:29:13 Influenza, split virus, trivalent, preservative 0 completed Not Available [facility] 04/05/2025 12:29:13 COVID-19, mRNA, LNP-S, PF, 100 mcg/0.5mL dose or 50 mcg/0.25mL dose 1 completed Not Available [facility] 04/05/2025 12:29:13 COVID-19, mRNA, LNP-S, PF, 100 mcg/0.5mL dose or 50 mcg/0.25mL dose 1 completed Not Available [facility] 04/05/2025 12:29:13 Influenza, split virus, quadrivalent, PF 1 completed Not Available [facility] 04/05/2025 12:29:13 COVID-19, mRNA, LNP-S, PF, 100 mcg/0.5mL dose or 50 mcg/0.25mL dose 1 completed Not Available [facility] 04/05/2025 12:29:13 Influenza, split virus, quadrivalent, PF 2 completed Not Available [facility] 04/05/2025 12:29:13 Influenza, split virus, quadrivalent, PF 3 completed Not Available [facility] 04/05/2025 12:29:13 Influenza, split virus, trivalent, preservative 4 completed Not Available [facility] 04/05/2025 12:29:13 COVID-19, mRNA, LNP-S, PF, 50 mcg/0.5 mL 5 completed Not Available [facility] 04/05/2025 12:29:13 Past Encounters Encounter ID Performer Location Encounter Start Date Encounter Closed Date Diagnosis/Indication Diagnosis SNOMED-CT Code Diagnosis ICD10 Code Diagnosis IMO Codes Diagnosis Note [id number] Chris Parker DO [facility] ([facility]) [address] [place] [address] 5 01/11/2025 12:12:21 01/16/2025 10:56:12 Hyperglycemia due to type 2 diabetes mellitus 9303320252 91200 E11.65 Z79.4 [id number] Chris Parker DO [facility] ([facility] [address] [place] [address] 5 01/15/2025 12:18:30 01/17/2025 08:49:31 Type 1 diabetes mellitus 29315751 E10.9 Hepatosplenomegaly 88126 000 R16.2 55378 Pneumonia 234326950 J18. 9 [id number] Chris Parker DO [facility] ([facility]) [address] [place], [place] [address] 01/18/2025 09:41:48 01/23/2025 16:25:08 [id number] Chris Parker DO [facility] ([facility] [address] [place] [address] 5 01/22/2025 15:25:32 01/24/2025 09:26:09 Congestive heart failure 97535880 I50.9 Type 1 brad betes mellitus 84619163 E10.9 Hepatosplenomegaly 41167 000 R16.2 54529 [id number] Chris Parker DO [facility] ([facility]) [address] [place] [address] 5 02/05/2025 14:15:56 02/06/2025 16:50:40 Hepatosplenomegaly 94427681 R16.2 00743 Ascites 062828215 R18.8 064099 Pancytopenia 872295748 D 61.818 30195 Health Concerns Section Related Observation LastModified by Organization Detai ls LastModified Time None Recorded Concern Status LastModified by Organization Details LastModified Time None Recorded Payers Encounter Date Sequence Insurance Name Policy Number Policy Pate Covered Member ID Pate Member ID Guarantor Name 02/05/2025 1 [place] Marciano Alonso [id number] Marciano Alonso 02/05/2025 2 [place] Marciano Alonso [id number] Marciano Alonso Notes Date Note Type Note Provider Name and Address Organization Details Recorded Time 02/05/2025 text/html COPDReported by PatientHPI:For associated symptoms, patient reportsobesity. For onset/timing, patient reportsmultiple times per day. For duration, patient reportshas noted for years.ROS as noted in the HPI Planning to see oncology/hematology today, plan to have liver biopsy tomorrow. Chris Parker, DO [address] [place] [address], [address], [facility] 02/05/2025 15:13:57
--- OUTSIDE RECORDS SUMMARY | 2025-04-14 20:36 | XMS_ITS | Encounter Summary ---
Author Organization [facility] Address [address] [place] [address] Care Team Providers Care Research And Development Manager Name Role Phone Cuba Solano MD Primary Care Provider +1 -[phone] Encounter Details Date Type Department Care Team (Latest Contact Info) Description 02/09/2000 Outpatient Historical [facility] Family Medicine [place] [id number] [address] Donte Borrego MD NO ADDRESS ON FILE Unspecified suppurative otitis media (Primary Dx); Acute upper respiratory infections of unspecified site Social History Tobacco Use Types Packs/Day Years Used Date Smoking Tobacco: Never Assessed Sex and Gender Information Value Date Recorded Sex Assigned at Not on file 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
--- OUTSIDE RECORDS SUMMARY | 2025-04-14 20:36 | XMS_ITS | Encounter Summary ---
Author Organization [facility] Address [address] [place] [address] Care Team Providers Care Currency Examiner Name Role Phone Cuba Solano MD Primary Care Provider +1 -[phone] Encounter Details Date Type Department Care Team (Latest Contact Info) Description 09/06/2000 Outpatient Historical [facility] [place] [address] [place] [address] Other convulsions (Primary Dx) Social History Tobacco Use Types Packs/Day Years Used Date Smoking Tobacco: Never Assessed Sex and Gender Information Value Date Recorded Sex Assigned at Not on file 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
--- OUTSIDE RECORDS SUMMARY | 2025-04-14 20:36 | XMS_ITS | Encounter Summary ---
Author Organization 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
--- OUTSIDE RECORDS SUMMARY | 2025-04-14 20:36 | XMS_ITS | Encounter Summary ---
Author Organization [facility] Address [address] [place] [address] Care Team Providers Care De Ionizer Operator Name Role Phone Cuba Solano MD Primary Care Provider +1 [phone] Encounter Details Date Type Department Care Team (Latest Contact Info) Description 03/30/2004 Outpatient Historical [facility] [address] [place] [address] Kvng Kilpatrick MD NO ADDRESS ON FILE HYPERSOMNI W SLEEP APNEA (Primary Dx) Social History Tobacco Use Types Packs/Day Years Used Date Smoking Tobacco: Never Assessed Sex and Gender Information Value Date Recorded Sex Assigned at Not on file Legal Sex Male 2:49 AM RIBBON HAND Gender Identity Not on file Sexual Orientation Not on file documented as of this encounter Plan of Treatment Not on file documented as of this encounter Visit Diagnoses Diagnosis Hypersomnia with sleep apnea, unspecified- Primary documented in this encounter Care Teams De Ionizer Operator Relationship Specialty Start Date End Date Cuba Solano MD PCP - General 07/11/09 documented as of this encounter
--- OUTSIDE RECORDS SUMMARY | 2025-04-14 20:36 | XMS_ITS | Encounter Summary ---
Author Organization [facility] Address [address] [place] [address] Care Team Providers Care Agricultural Research Director Name Role Phone Cuba Solano MD Primary Care Provider +1 [phone] Encounter Details Date Type Department Care Team (Latest Contact Info) Description 04/07/2000 Outpatient Historical [facility] Family Medicine [place] [address] [address] Donte Borrego MD NO ADDRESS ON FILE Unspecified essential hypertension (Primary Dx); Unspecified suppurative otitis media; Nasal/sinus dis NEC Social History Tobacco Use Types Packs/Day Years Used Date Smoking Tobacco: Never Assessed Sex and Gender Information Value Date Recorded Sex Assigned at Not on file Legal 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
--- OUTSIDE RECORDS SUMMARY | 2025-04-14 20:36 | XMS_ITS | Encounter Summary ---
Author Organization [facility] Address [address] [place] [address] Care Team Providers Care Word Processor Technician Name Role Phone Cuba Solano MD Primary Care Provider +1 [phone] Encounter Details Date Type Department Care Team (Latest Contact Info) Description 07/07/2000 Outpatient Historical [facility] Family Medicine [place] [address] [address] Donte Borrego MD NO ADDRESS ON FILE Unspecified essential hypertension (Primary Dx); Obesity, unspecified; Allergy, unspecified not elsewhere classified; Actinic keratosis Social History Tobacco Use Types Packs/Day Years Used Date Smoking Tobacco: Never Assessed Sex and Gender Information Value Date Recorded Sex Assigned at Not on file 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
--- OUTSIDE RECORDS SUMMARY | 2025-04-14 20:36 | XMS_ITS | Encounter Summary ---
Author Organization [facility] Address [address] [place] [address] Care Team Providers Care Percussion Teacher Name Role Phone Cuba Solano MD Primary Care Provider +1 [phone] Encounter Details Date Type Department Care Team (Latest Contact Info) Description 07/11/2001 Outpatient Historical [facility] Family Medicine [place] [address] [address] Donte Borrego MD NO ADDRESS ON FILE Benign hypertension (Primary Dx); OSTEOARTHROS NOS-UNSPEC Social History Tobacco Use Types Packs/Day Years Used Date Smoking Tobacco: Never Assessed Sex and Gender Information Value Date Recorded Sex Assigned at Not on file Legal Sex Male 2: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
--- OUTSIDE RECORDS SUMMARY | 2025-04-14 20:37 | XMS_ITS | Encounter Summary ---
Author Organization [facility] Address [address] [place] [address] Care Team Providers Care Irrigator Valve Pipe Name Role Phone Cuba Solano MD Primary Care Provider +1 [phone] Encounter Details Date Type Department Care Team (Latest Contact Info) Description 01/05/2003 Outpatient Historical [facility] Cardiovascular Services [address] [place] [address] Non-Staff, Physician NO ADDRESS ON FILE PAIN IN LIMB (Primary Dx) Social History Tobacco Use Types Packs/Day Years Used Date Smoking Tobacco: Never Assessed Sex and Gender Information Value Date Recorded Sex Assigned at Not on file Legal 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
--- OUTSIDE RECORDS SUMMARY | 2025-04-14 20:37 | XMS_ITS | Encounter Summary ---
Author Organization [facility] Address [address] [place] [address] Care Team Providers Care Sand Miller Name Role Phone Cuba Solano MD Primary Care Provider +1 -[phone] Encounter Details Date Type Department Care Team (Latest Contact Info) Description 11/30/2001 Outpatient Historical [facility] Family Medicine [place] [address] [address] Donte Borrego MD NO ADDRESS ON FILE ACUTE CONJUNCTIVITIS NOS (Primary Dx); HERPES ZOSTER NOS Social History Tobacco Use Types Packs/Day Years Used Date Smoking Tobacco: Never Assessed Sex and Gender Information Value Date Recorded Sex Assigned at Not on file 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
--- OUTSIDE RECORDS SUMMARY | 2025-04-14 20:37 | XMS_ITS | Encounter Summary ---
Author Organization [facility] Address [address] [place] [address] Care Team Providers Care Exercise Instruct Name Role Phone Cuba Solano MD Primary Care Provider +1 -[phone] Encounter Details Date Type Department Care Team (Latest Contact Info) Description 07/02/2003 Outpatient Historical [facility] Family Medicine [place] [address] [address] Keyona Mccloud, HEATING UNIT MECHANIC NO ADDRESS ON FILE ALLERGY, UNSPECIFIED (Primary Dx) Social History Tobacco Use Types Packs/Day Years Used Date Smoking Tobacco: Never Assessed Sex and Gender Information Value Date Recorded Sex Assigned at Not on file Legal 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
--- OUTSIDE RECORDS SUMMARY | 2025-04-14 20:37 | XMS_ITS | Encounter Summary ---
Author Organization [facility] Address [address] [place] [address] Care Team Providers Care Ginner Name Role Phone Cuba Solano MD Primary Care Provider +1 -[phone] Encounter Details Date Type Department Care Team (Latest Contact Info) Description 09/11/2003 Outpatient [facility] Family Medicine [place] [address] [address] Keyona Mccloud, LUCIEN NO ADDRESS ON FILE ALLERGY, UNSPECIFIED (Primary Dx); DERMATITIS NOS; HYPERTENSION NOS; HYPERLIPIDEMIA NEC/NOS Social History Tobacco Use Types Packs/Day Years Used Date Smoking Tobacco: Never Assessed Sex and Gender Information Value Date Recorded Sex Assigned at Not on file Legal 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
--- OUTSIDE RECORDS SUMMARY | 2025-04-14 20:37 | XMS_ITS | Encounter Summary ---
Author Organization [facility] Address [address] [place] [address] Care Team Providers Care Retail Cosmetics Sales Counter Manager Name Role Phone Cuba Solano MD Primary Care Provider +1 [phone] Encounter Details Date Type Department Care Team (Latest Contact Info) Description 08/07/[address] [facility] Family Medicine [place] [id number] [address] [address] Donte Borrego MD NO ADDRESS ON FILE LUPUS ERYTHEMATOSUS (Primary Dx); ALLERGY, UNSPECIFIED Social History Tobacco Use Types Packs/Day Years Used Date Smoking Tobacco: Never Assessed Sex and Gender Information Value Date Recorded Sex Assigned at Not on file Legal Sex Male 2:49 AM BIG DATA ADMIN Gender Identity Not on file Sexual Orientation Not on file documented as of this encounter Plan of Treatment Not on file documented as of this encounter Visit Diagnoses Diagnosis Lupus erythematosus- Primary Allergy, unspecified not elsewhere classified documented in this encounter Care Teams Retail Cosmetics Sales Counter Manager Relationship Specialty Start Date End Date Cuba Solano MD PCP - General 07/11/09 documented as of this encounter
--- OUTSIDE RECORDS SUMMARY | 2025-04-14 20:37 | XMS_ITS | Encounter Summary ---
Author Organization [facility] Address [address] [place] [address] Care Team Providers Care Commercial Loan Closer Name Role Phone Cuba Solano MD Primary Care Provider +1 -[phone] Encounter Details Date Type Department Care Team (Latest Contact Info) Description 10/30/2002 Outpatient Historical [facility] Family Medicine [place] [address] [address] Donte Borrego MD NO ADDRESS ON FILE HYPERLIPIDEMIA NEC/NOS (Primary Dx); HYPERTENSION NOS; ALLERGY, UNSPECIFIED Social History Tobacco Use Types Packs/Day Years Used Date Smoking Tobacco: Never Assessed Sex and Gender Information Value Date Recorded Sex Assigned at Not on file Legal Sex Male 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
--- OUTSIDE RECORDS SUMMARY | 2025-04-14 20:37 | XMS_ITS | Encounter Summary ---
Author Organization [facility] Address [address] [place] [address] Care Team Providers Care Manufacturing Weaver Name Role Phone Cuba Solano MD Primary Care Provider +1 [phone] Encounter Details Date Type Department Care Team (Latest Contact Info) Description 05/17/2003 Outpatient Historical [facility] Family Medicine [place] 0[address]352 [address] [address] Keyona Mccloud, LUCIEN NO ADDRESS ON FILE AFTERCARE HALF-WAY USE MEDICATN (Primary Dx) Social History Tobacco [...] documented in this encounter Care Teams Manufacturing Weaver Relationship Specialty Start Date End Date Cuba Solano MD PCP - General 07/11/09 documented as of this encounter
--- OUTSIDE RECORDS SUMMARY | 2025-04-14 20:37 | XMS_ITS | Encounter Summary ---
Author Organization [facility] Address [address] [place] [address] Care Team Providers Care Ornamental Ironworker Helper Name Role Phone Cuba Solano MD Primary Care Provider +1 [phone] Encounter Details Date Type Department Care Team (Latest Contact Info) Description 11/02/2003 Outpatient Historical [facility] Family Medicine [place] [id number] [address] [address] Donte Borrego MD NO ADDRESS ON FILE HYPERTENSION NOS (Primary Dx) Social History Tobacco Use Types Packs/Day Years Used Date Smoking Tobacco: Never Assessed Sex and Gender Information Value Date Recorded Sex Assigned at Not on file Legal Sex 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
--- OUTSIDE RECORDS SUMMARY | 2025-04-14 20:37 | XMS_ITS | Encounter Summary ---
Author Organization [facility] Address [address] [place] [address] Care Team Providers Care Appraiser Art Name Role Phone Cuba Solano MD Primary Care Provider +1 [phone] Encounter Details Date Type Department Care Team (Latest Contact Info) Description 10/02/2002 Outpatient Historical [facility] Family Medicine [place] [address] [address] Donte Borrego MD NO ADDRESS ON FILE ANEMIA NOS (Primary Dx) Social History Tobacco Use Types Packs/Day Years Used Date Smoking Tobacco: Never Assessed Sex and Gender Information Value Date Recorded Sex Assigned at Not on file 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
--- OUTSIDE RECORDS SUMMARY | 2025-04-14 20:37 | XMS_ITS | Encounter Summary ---
Author Organization [facility] Address [address] [place] [address] Care Team Providers Care Appliquer Zigzag Name Role Phone Cuba Solano MD Primary Care Provider +1 [phone] Encounter Details Date Type Department Care Team (Latest Contact Info) Description 11/14/2001 Outpatient [facility] Family Medicine [place] 9[address]172 [address] [address] Keyona Mccloud, LUCIEN NO ADDRESS ON FILE HORDEOLUM EXTERNUM (Primary Dx); ACUTE URI NOS Social History Tobacco Use Types Packs/Day Years Used Date Smoking Tobacco: Never Assessed Sex and Gender Information Value Date Recorded Sex Assigned at Not on file Legal Sex Male 2:49 AM PATIENT REGISTRAR Gender Identity Not on file Sexual Orientation Not on file documented as of this encounter Plan of Treatment Not on file documented as of this encounter Visit Diagnoses Diagnosis Hordeolum externum- Primary Acute upper respiratory infections of unspecified site documented in this encounter Care Teams Appliquer Zigzag Relationship Specialty Start Date End Date Cuba Solano MD PCP - General 07/11/09 documented as of this encounter
--- OUTSIDE RECORDS SUMMARY | 2025-04-14 20:37 | XMS_ITS | Encounter Summary ---
Author Organization [facility] Address [address] [place] [address] Care Team Providers Care Consultant Education Name Role Phone Cuba Solano MD Primary Care Provider +1 [phone] Encounter Details Date Type Department Care Team (Latest Contact Info) Description 08/03/2002 Outpatient Historical [facility] Family Medicine [place] [address] [address] Donte Borrego MD NO ADDRESS ON FILE OTHER MALAISE AND FATIGUE (Primary Dx) Social History Tobacco Use Types Packs/Day Years Used Date Smoking Tobacco: Never Assessed Sex and Gender Information Value Date Recorded Sex Assigned at Not on file Legal 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
--- OUTSIDE RECORDS SUMMARY | 2025-04-14 20:37 | XMS_ITS | Encounter Summary ---
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
--- OUTSIDE RECORDS SUMMARY | 2025-04-14 20:37 | XMS_ITS | Encounter Summary ---
Author Organization [facility] Address [address] [place] [address] Care Team Providers Care Pole Frame Construction Worker Name Role Phone Cuba Solano MD Primary Care Provider +1 -[phone] Encounter Details Date Type Department Care Team (Latest Contact Info) Description 05/30/[address] 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
--- OUTSIDE RECORDS SUMMARY | 2025-04-14 20:37 | XMS_ITS | Encounter Summary ---
Author Organization [facility] Address [address] [place] [address] Care Team Providers Care Change Consultant Name Role Phone Cuba Solano MD Primary Care Provider +1 -[phone] Encounter Details Date Type Department Care Team (Latest Contact Info) Description 04/04/2003 Outpatient Historical [facility] Family Medicine [place] 512012 [address] [address] Keyona Mccloud, LUCIEN NO ADDRESS ON FILE OTHER MALAISE AND FATIGUE (Primary Dx) Social History Tobacco Use Types Packs/Day Years Used Date Smoking Tobacco: Never Assessed Sex and Gender Information Value Date Recorded Sex Assigned at Not on file Legal Sex Male 2:49 AM MEAT PACKAGER Gender Identity Not on file Sexual Orientation Not on file documented as of this encounter Plan of Treatment Not on file documented as of this encounter Visit Diagnoses Diagnosis Other malaise and fatigue- Primary documented in this encounter Care Teams Change Consultant Relationship Specialty Start Date End Date Cuba Solano MD PCP - General 07/11/09 documented as of this encounter
--- OUTSIDE RECORDS SUMMARY | 2025-04-14 20:37 | XMS_ITS | Encounter Summary ---
Author Organization [facility] Address [address] [place] [address] Care Team Providers Care Edge Stainer Name Role Phone Cuba Solano MD Primary Care Provider +1 -[phone] Encounter Details Date Type Department Care Team (Latest Contact Info) Description 07/03/2002 Outpatient Historical [facility] Family Medicine [place] 587142 [address] [address] Donte Borrego MD NO ADDRESS ON FILE OTHER MALAISE AND FATIGUE (Primary Dx) Social History Tobacco Use Types Packs/Day Years Used Date Smoking Tobacco: Never Assessed Sex and Gender Information Value Date Recorded Sex Assigned at Not on file Legal Sex Male 2:49 AM COUNTER SUPERVISOR Gender Identity Not on file Sexual Orientation Not on file documented as of this encounter Plan of Treatment Not on file documented as of this encounter Visit Diagnoses Diagnosis Other malaise and fatigue- Primary documented in this encounter Care Teams Edge Stainer Relationship Specialty Start Date End Date Cuba Solano MD PCP - General 07/11/09 documented as of this encounter
--- OUTSIDE RECORDS SUMMARY | 2025-04-14 20:37 | XMS_ITS | Encounter Summary ---
Author Organization [facility] Address [address] [place] [address] Care Team Providers Care Turnstile Collector Name Role Phone Cuba Solano MD Primary Care Provider +1 -[phone] Encounter Details Date Type Department Care Team (Latest Contact Info) Description 08/22/2001 Outpatient Historical [facility] Family Medicine [place] 501132 [address] [address] Donte Borrego MD NO ADDRESS ON FILE HYPERTENSION NOS (Primary Dx); TACHYCARDIA NOS Social History Tobacco Use Types Packs/Day Years Used Date Smoking Tobacco: Never Assessed Sex and Gender Information Value Date Recorded Sex Assigned at Not on file Legal 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
--- OUTSIDE RECORDS SUMMARY | 2025-04-14 20:37 | XMS_ITS | Encounter Summary ---
Author Organization [facility] Address [address] [place] [address] Care Team Providers Care Call Centre Supervisor Name Role Phone Cuba Solano MD Primary Care Provider +1 -[phone] Encounter Details Date Type Department Care Team (Latest Contact Info) Description 10/23/2003 Outpatient Historical [facility] Family Medicine Angel[place] [address] [address] Donte Borrego MD NO ADDRESS ON FILE TOBACCO USE DISORDER (Primary Dx); ALLERGY, UNSPECIFIED Social History Tobacco Use Types Packs/Day Years Used Date Smoking Tobacco: Never Assessed Sex and Gender Information Value Date Recorded Sex Assigned at Not on file Legal Sex Male 2:49 AM AUDIT MGR Gender Identity Not on file Sexual Orientation Not on file documented as of this encounter Plan of Treatment Not on file documented as of this encounter Visit Diagnoses Diagnosis Tobacco use disorder- Primary Allergy, unspecified not elsewhere classified documented in this encounter Care Teams Call Centre Supervisor Relationship Specialty Start Date End Date Cuba Solano MD PCP - General 07/11/09 documented as of this encounter
--- OUTSIDE RECORDS SUMMARY | 2025-04-14 20:37 | XMS_ITS | Encounter Summary ---
Author Organization [facility] Address [address] [place] [address] Care Team Providers Care Bowling Alley Attendant Name Role Phone Cuba Solano MD Primary Care Provider +1 -[phone] Encounter Details Date Type Department Care Team (Latest Contact Info) Description 10/04/[address] 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
--- OUTSIDE RECORDS SUMMARY | 2025-04-14 20:37 | XMS_ITS | Encounter Summary ---
Author Organization [facility] Address [address] [place] [address] Care Team Providers Care Supervisor Reactor Fueling Name Role Phone Cuba Solano MD Primary Care Provider +1 -[phone] Encounter Details Date Type Department Care Team (Latest Contact Info) Description 07/17/2003 Outpatient Historical [facility] Family Medicine Angel[place] [address] [address] Donte Borrego MD NO ADDRESS ON FILE DERMATITIS NOS (Primary Dx); ALLERGY, UNSPECIFIED Social History Tobacco Use Types Packs/Day Years Used Date Smoking Tobacco: Never Assessed Sex and Gender Information Value Date Recorded Sex Assigned at Not on file Legal Sex Male 2:49 AM BEEKEEPER Gender Identity Not on file Sexual Orientation Not on file documented as of this encounter Plan of Treatment Not on file documented as of this encounter Visit Diagnoses Diagnosis Contact dermatitis and other eczema, due to unspecified cause- Primary Allergy, unspecified not elsewhere classified documented in this encounter Care Teams Supervisor Reactor Fueling Relationship Specialty Start Date End Date Cuba Solano MD PCP - General 07/11/09 documented as of this encounter
--- OUTSIDE RECORDS SUMMARY | 2025-04-14 20:37 | XMS_ITS | Encounter Summary ---
Author Organization [facility] Address [address] [place] [address] Care Team Providers Care Esthetics Instructor Name Role Phone Cuba Solano MD Primary Care Provider +1 -[phone] Encounter Details Date Type Department Care Team (Latest Contact Info) Description 04/13/2002 Outpatient Historical [facility] Family Medicine [place] [id number] [address] [address] Donte Borrego MD NO ADDRESS ON FILE ACUTE URI NOS (Primary Dx) Social History Tobacco Use Types Packs/Day Years Used Date Smoking Tobacco: Never Assessed Sex and Gender Information Value Date Recorded Sex Assigned at Not on file Legal Sex Male 2:49 AM BELLPERSON Gender Identity Not on file Sexual Orientation Not on file documented as of this encounter Plan of Treatment Not on file documented as of this encounter Visit Diagnoses Diagnosis Acute upper respiratory infections of unspecified site- Primary documented in this encounter Care Teams Esthetics Instructor Relationship Specialty Start Date End Date Cuba Solano MD PCP - General 07/11/09 documented as of this encounter
--- OUTSIDE RECORDS SUMMARY | 2025-04-14 20:37 | XMS_ITS | Encounter Summary ---
Author Organization [facility] Address [address] [place] [address] Care Team Providers Care Operations Architect Name Role Phone Cuba Solano MD Primary Care Provider +1 -[phone] Encounter Details Date Type Department Care Team (Latest Contact Info) Description 09/14/2001 Outpatient Historical [facility] Family Medicine [place] [address] [address] Donte Borrego MD NO ADDRESS ON FILE UNSPECIFIED VIRAL INFECTION (Primary Dx); ALLERGY, UNSPECIFIED; HYPERTENSION NOS; TACHYCARDIA NOS Social History Tobacco Use Types Packs/Day Years Used Date Smoking Tobacco: Never Assessed Sex and Gender Information Value Date Recorded Sex Assigned at Not on file Legal 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
--- OUTSIDE RECORDS SUMMARY | 2025-04-14 20:37 | XMS_ITS | Encounter Summary ---
Author Organization [facility] Address [address] [place] [address] Care Team Providers Care Top Dyeing Machine Loader Name Role Phone Cuba Solano MD Primary Care Provider +1 -[phone] Encounter Details Date Type Department Care Team (Latest Contact Info) Description 11/01/2002 Outpatient Historical [facility] Family Medicine [place] [address] [address] Donte Borrego MD NO ADDRESS ON FILE OTHER MALAISE AND FATIGUE (Primary Dx) Social History Tobacco Use Types Packs/Day Years Used Date Smoking Tobacco: Never Assessed Sex and Gender Information Value Date Recorded Sex Assigned at Not on file Legal Sex Male 2:49 AM MONUMENT ERECTOR Gender Identity Not on file Sexual Orientation Not on file documented as of this encounter Plan of Treatment Not on file documented as of this encounter Visit Diagnoses Diagnosis Other malaise and fatigue- Primary documented in this encounter Care Teams Top Dyeing Machine Loader Relationship Specialty Start Date End Date Cuba Solano MD PCP - General 07/11/09 documented as of this encounter
--- OUTSIDE RECORDS SUMMARY | 2025-04-14 20:37 | XMS_ITS | Encounter Summary ---
Author Organization [facility] Address [address] [place] [address] Care Team Providers Care Senior Partner Name Role Phone Cuba Solano MD Primary Care Provider +1 [phone] Encounter Details Date Type Department Care Team (Latest Contact Info) Description 05/04/2002 Outpatient Historical [facility] Family Medicine [place] [id number] [address] [address] Donte Borrego MD NO ADDRESS ON FILE Benign hypertension (Primary Dx); OTALGIA NOS; INFEC OTITIS EXTERNA NOS Social History Tobacco Use Types Packs/Day Years Used Date Smoking Tobacco: Never Assessed Sex and Gender Information Value Date Recorded Sex Assigned at Not on file Legal Sex Male 2:49 AM SENIOR COST ANALYST Gender Identity Not on file Sexual Orientation Not on file documented as of this encounter Plan of Treatment Not on file documented as of this encounter Visit Diagnoses Diagnosis Benign hypertension- Primary Essential hypertension, benign Otalgia, unspecified Infective otitis externa, unspecified documented in this encounter Care Teams Senior Partner Relationship Specialty Start Date End Date Cuba Solano MD PCP - General 07/11/09 documented as of this encounter
--- OUTSIDE RECORDS SUMMARY | 2025-04-14 20:37 | XMS_ITS | Encounter Summary ---
Author Organization [facility] Address [address] [place] [address] Care Team Providers Care Customer Experience Retail Clerk Name Role Phone Cuba Solano MD Primary Care Provider +1 -[phone] Encounter Details Date Type Department Care Team (Latest Contact Info) Description 10/02/2002 Outpatient Historical [facility] Family Medicine [place] [address] [address] Donte Borrego MD NO ADDRESS ON FILE ANEMIA NOS (Primary Dx) Social History Tobacco Use Types Packs/Day Years Used Date Smoking Tobacco: Never Assessed Sex and Gender Information Value Date Recorded Sex Assigned at Not on file Legal Sex Male 2:49 AM COAL INSPECTOR Gender Identity Not on file Sexual Orientation Not on file documented as of this encounter Plan of Treatment Not on file documented as of this encounter Visit Diagnoses Diagnosis Anemia, unspecified- Primary documented in this encounter Care Teams Customer Experience Retail Clerk Relationship Specialty Start Date End Date Cuba Solano MD PCP - General 07/11/09 documented as of this encounter
--- OUTSIDE RECORDS SUMMARY | 2025-04-14 20:37 | XMS_ITS | Encounter Summary ---
Author Organization [facility] Address [address] [place] [address] Care Team Providers Care Reel Stripper Name Role Phone Cuba Solano MD Primary Care Provider +1 [phone] Encounter Details Date Type Department Care Team (Latest Contact Info) Description 01/18/2002 Outpatient Historical [facility] Family Medicine [place] [address] [address] Donte Borrego MD NO ADDRESS ON FILE DISEASES OF LIPS (Primary Dx); ALLERGY, UNSPECIFIED Social History Tobacco Use Types Packs/Day Years Used Date Smoking Tobacco: Never Assessed Sex and Gender Information Value Date Recorded Sex Assigned at Not on file Legal Sex Male 2:49 AM HAND CANDY MOLDER Gender Identity Not on file Sexual Orientation Not on file documented as of this encounter Plan of Treatment Not on file documented as of this encounter Visit Diagnoses Diagnosis Diseases of lips- Primary Allergy, unspecified not elsewhere classified documented in this encounter Care Teams Reel Stripper Relationship Specialty Start Date End Date Cuba Solano MD PCP - General 07/11/09 documented as of this encounter
--- OUTSIDE RECORDS SUMMARY | 2025-04-14 20:37 | XMS_ITS | Encounter Summary ---
Author Organization [facility] Address [address] [place] [address] Care Team Providers Care Quotation Checker Name Role Phone Cuba Solano MD Primary Care Provider +1 [phone] Encounter Details Date Type Department Care Team (Latest Contact Info) Description 03/14/2004 Outpatient Historical [facility] [address] [place] [address] Kvng Kilpatrick MD NO ADDRESS ON FILE HYPERSOMNI W SLEEP APNEA (Primary Dx) Social History Tobacco Use Types Packs/Day Years Used Date Smoking Tobacco: Never Assessed Sex and Gender Information Value Date Recorded Sex Assigned at Not on file Legal Sex Male 2: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
--- OUTSIDE RECORDS SUMMARY | 2025-04-14 20:37 | XMS_ITS | Encounter Summary ---
Author Organization [facility] Address [address] [place] [address] Care Team Providers Care Wind Site Manager Name Role Phone Cuba Solano MD Primary Care Provider +1 [phone] Encounter Details Date Type Department Care Team (Latest Contact Info) Description 03/03/2002 Outpatient [facility] Family Medicine [place] [address] [address] Donte Borrego MD NO ADDRESS ON FILE OTHER MALAISE AND FATIGUE (Primary Dx); B-COMPLEX DEFIC NEC Social History Tobacco Use Types Packs/Day Years Used Date Smoking Tobacco: Never Assessed Sex and Gender Information Value Date Recorded Sex Assigned at Not on file Legal Sex Male 2:49 AM LEATHER COVERER Gender Identity Not on file Sexual Orientation Not on file documented as of this encounter Plan of Treatment Not on file documented as of this encounter Visit Diagnoses Diagnosis Other malaise and fatigue- Primary Other B-complex deficiencies documented in this encounter Care Teams Wind Site Manager Relationship Specialty Start Date End Date Cuba Solano MD PCP - General 07/11/09 documented as of this encounter
--- OUTSIDE RECORDS SUMMARY | 2025-04-14 20:37 | XMS_ITS | Encounter Summary ---
Author Organization [facility] Address [address] [place] [address] Care Team Providers Care Leather Polisher Name Role Phone Cuba Solano MD Primary Care Provider +1 [phone] Encounter Details Date Type Department Care Team (Latest Contact Info) Description 10/03/2001 Outpatient Historical [facility] Family Medicine [place] [address] [address] Donte Borrego MD NO ADDRESS ON FILE HYPERTENSION NOS (Primary Dx); ALLERGY, UNSPECIFIED; AMPUT ABOVE KNEE, UNILAT; OSTEOARTHROS NOS-UNSPEC Social History Tobacco Use Types Packs/Day Years Used Date Smoking Tobacco: Never Assessed Sex and Gender Information Value Date Recorded Sex Assigned at Not on file Legal Sex Male 2: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
--- OUTSIDE RECORDS SUMMARY | 2025-04-14 20:37 | XMS_ITS | Encounter Summary ---
Author Organization [facility] Address [address] [place] [address] Care Team Providers Care Director Of Athletics Name Role Phone Cuba Solano MD Primary Care Provider +1 [phone] Encounter Details Date Type Department Care Team (Latest Contact Info) Description 05/04/2002 Outpatient Historical [facility] Family Medicine [place] [address] [address] Donte Borrego MD NO ADDRESS ON FILE OTALGIA NOS (Primary Dx) Social History Tobacco Use Types Packs/Day Years Used Date Smoking Tobacco: Never Assessed Sex and Gender Information Value Date Recorded Sex Assigned at Not on file Legal Sex Male 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
--- OUTSIDE RECORDS SUMMARY | 2025-04-14 20:37 | XMS_ITS | Encounter Summary ---
Author Organization [facility] Address [address] [place] [address] Care Team Providers Care Crude Oil Treater Name Role Phone Cuba Solano MD Primary Care Provider +1 [phone] Encounter Details Date Type Department Care Team (Latest Contact Info) Description 12/04/2003 Outpatient Historical [facility] Family Medicine [place] [address] [address] Donte Borrego MD NO ADDRESS ON FILE URIN TRACT INFECTION NOS (Primary Dx) Social History Tobacco Use Types Packs/Day Years Used Date Smoking Tobacco: Never Assessed Sex and Gender Information Value Date Recorded Sex Assigned at Not on file Legal Sex Male 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
--- OUTSIDE RECORDS SUMMARY | 2025-04-14 20:37 | XMS_ITS | Encounter Summary ---
Author Organization [facility] Address [address] [place] [address] Care Team Providers Care Morning Babysitter Name Role Phone Cuba Solano MD Primary Care Provider +1 [phone] Encounter Details Date Type Department Care Team (Latest Contact Info) Description 09/15/2000 Outpatient Historical [facility] Family Medicine [place] 22[address]62 [address] [address] Donte Borrego MD NO ADDRESS ON FILE Unspecified essential hypertension (Primary Dx); Type II or unspecified type diabetes mellitus 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, not stated as uncontrolled Social History Tobacco Use Types Packs/Day Years Used Date Smoking Tobacco: Never Assessed Sex and Gender Information Value Date Recorded Sex Assigned at Not on file Legal Sex Male 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
--- OUTSIDE RECORDS SUMMARY | 2025-04-14 20:37 | XMS_ITS | Encounter Summary ---
Author Organization [facility] Address [address] [place] [address] Care Team Providers Care Sales Engineer Engineered Products Name Role Phone Cuba Solano MD Primary Care Provider +1 [phone] Encounter Details Date Type Department Care Team (Latest Contact Info) Description 11/18/2001 Outpatient Historical [facility] Family Medicine [place] [address] [address] Donte Borrego MD NO ADDRESS ON FILE CONJUNCTIVITIS NOS (Primary Dx) Social History Tobacco Use Types Packs/Day Years Used Date Smoking Tobacco: Never Assessed Sex and Gender Information Value Date Recorded Sex Assigned at Not on file Legal Sex Male 2:49 AM IMPLEMENTATION ADVISOR Gender Identity Not on file Sexual Orientation Not on file documented as of this encounter Plan of Treatment Not on file documented as of this encounter Visit Diagnoses Diagnosis Conjunctivitis unspecified- Primary Conjunctivitis, unspecified documented in this encounter Care Teams Sales Engineer Engineered Products Relationship Specialty Start Date End Date Cuba Solano MD PCP - General 07/11/09 documented as of this encounter
--- OUTSIDE RECORDS SUMMARY | 2025-04-14 20:37 | XMS_ITS | Encounter Summary ---
Author Organization [facility] Address [address] [place] [address] Care Team Providers Care Director Of Transportation Name Role Phone Cuba Solano MD Primary Care Provider +1 [phone] Encounter Details Date Type Department Care Team (Late st Contact Info) Description 11/27/2003 Outpatient Historical [facility] Family Medicine [place] [address] [address] Social History Tobacco Use Types Packs/Day Years Used Date Smoking Tobacco: Never Assessed Sex and Gender Information Value Date Recorded Sex Assigned at Not on file Legal Sex Male 2:49 AM GROOVER OPERATOR Gender Identity Not on file Sexual Orientation Not on file documented as of this encounter Plan of Treatment Not on file documented as of this encounter Visit Diagnoses Not on filedocumented in this encounter Care Teams Director Of Transportation Relationship Specialty Start Date End Date Cuba Solano MD PCP - General 07/11/09 documented as of this encounter
--- OUTSIDE RECORDS SUMMARY | 2025-04-14 20:37 | XMS_ITS | Encounter Summary ---
Author Organization [facility] Address [address] [place] [address] Care Team Providers Care Complex Manager Name Role Phone Cuba Solano MD Primary Care Provider +1 [phone] Encounter Details Date Type Department Care Team (Latest Contact Info) Description 03/05/2003 Outpatient Historical [facility] Family Medicine [place] [id number] [address] Keyona Mccloud, LUCIEN NO ADDRESS ON FILE OTHER MALAISE AND FATIGUE (Primary Dx) Social History Tobacco Use Types Packs/Day Years Used Date Smoking Tobacco: Never Assessed Sex and Gender Information Value Date Recorded Sex Assigned at Not on file Legal Sex Male 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
--- OUTSIDE RECORDS SUMMARY | 2025-04-14 20:37 | XMS_ITS | Encounter Summary ---
Author Organization [facility] Address [address] [place] [address] Care Team Providers Care Church History Teacher Name Role Phone Cuba Solano MD Primary Care Provider +1 [phone] Encounter Details Date Type Department Care Team (Latest Contact Info) Description 05/17/2003 Outpatient Historical [facility] Family Medicine [place] [id number] [address] Keoyna Mccloud, LUCIEN NO ADDRESS ON FILE HYPERLIPIDEMIA NEC/NOS (Primary Dx); VITAMIN B DEFICIENCY NOS; AFTERCARE DOCTOR OF VETERINARY MEDICINE USE MEDICATN Social History Tobacco Use Types Packs/Day Years Used Date Smoking Tobacco: Never Assessed Sex and Gender Information Value Date Recorded Sex Assigned at Not on file Legal Sex Male 2:49 AM ASTRO TECHNICIAN Gender Identity Not on file Sexual Orientation Not on file documented as of this encounter Plan of Treatment Not on file documented as of this encounter Visit Diagnoses Diagnosis Other and unspecified hyperlipidemia- Primary Unspecified vitamin B deficiency Encounter for long-term (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 of other medications documented in this encounter Care Teams Church History Teacher Relationship Specialty Start Date End Date Cuba Solano MD PCP - General 07/11/09 documented as of this encounter
--- OUTSIDE RECORDS SUMMARY | 2025-04-14 20:37 | XMS_ITS | Encounter Summary ---
Author Organization [facility] Address [address] Attn: [place] [address] Care Team Providers Care Second Worker Name Role Phone Cuba Solano MD Primary Care Provider +1 [phone] Encounter Details Date Type Department Care Team (Late st Contact Info) Description 10/03/2001 Outpatient Historical Donte Borrego MD NO ADDRESS ON FILE Social History Tobacco Use Types Packs/Day Years Used Date Smoking Tobacco: Never Assessed Sex and Gender Information Value Date Recorded Sex Assigned at Not on file Legal Sex Male 2:49 AM ZYGLO TECHNICIAN Gender Identity Not on file Sexual Orientation Not on file documented as of this encounter Plan of Treatment Not on file documented as of this encounter Visit Diagnoses Not on filedocumented in this encounter Care Teams Second Worker Relationship Specialty Start Date End Date Cuba Solano MD PCP - General 07/11/09 documented as of this encounter
--- OUTSIDE RECORDS SUMMARY | 2025-04-14 20:37 | XMS_ITS | Encounter Summary ---
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
--- OUTSIDE RECORDS SUMMARY | 2025-04-14 20:37 | XMS_ITS | Encounter Summary ---
Author Organization [facility] Address [address] [place] [address] Care Team Providers Care Reservation Agent Name Role Phone Cuba Solano MD Primary Care Provider +1 [phone] Encounter Details Date Type Department Care Team (Latest Contact Info) Description 05/30/2002 Outpatient Historical [facility] Family Medicine [place] [address] [address] Donte Borrego MD NO ADDRESS ON FILE ANEMIA NOS (Primary Dx) Social History Tobacco Use Types Packs/Day Years Used Date Smoking Tobacco: Never Assessed Sex and Gender Information Value Date Recorded Sex Assigned at Not on file Legal Sex Male 2:49 AM TELEVISION ANALYZER Gender Identity Not on file Sexual Orientation Not on file documented as of this encounter Plan of Treatment Not on file documented as of this encounter Visit Diagnoses Diagnosis Anemia, unspecified- Primary documented in this encounter Care Teams Reservation Agent Relationship Specialty Start Date End Date Cuba Solano MD PCP - General 07/11/09 documented as of this encounter
--- OUTSIDE RECORDS SUMMARY | 2025-04-14 20:37 | XMS_ITS | Encounter Summary ---
Author Organization [facility] Address [address] [place] [address] Care Team Providers Care Vice President Payer Name Role Phone Cuba Solano MD Primary Care Provider +1 [phone] Encounter Details Date Type Department Care Team (Latest Contact Info) Description 09/04/2003 Outpatient Historical [facility] Family Medicine [place] [facility] [address] [address] Huey Upton Jr., MD [address] [place] [address] 248 [facility] [address] [place] [address] OTHER MALAISE AND FATIGUE (Primary Dx) Social History Tobacco Use Types Packs/Day Years Used Date Smoking Tobacco: Never Assessed Sex and Gender Information Value Date Recorded Sex Assigned at Not on file Legal Sex Male 2:49 AM SLOT KEY PERSON Gender Identity Not on file Sexual Orientation Not on file documented as of this encounter Plan of Treatment Not on file documented as of this encounter Visit Diagnoses Diagnosis Other malaise and fatigue- Primary documented in this encounter Care Teams Vice President Payer Relationship Specialty Start Date End Date Cuba Solano MD PCP - General 07/11/09 documented as of this encounter
--- OUTSIDE RECORDS SUMMARY | 2025-04-14 20:37 | XMS_ITS | Encounter Summary ---
Author Organization [facility] Address [address] [place] [address] Care Team Providers Care Garment Turner Name Role Phone Cuba Solano MD Primary Care Provider +1 -[phone] Encounter Details Date Type Department Care Team (Latest Contact Info) Description 02/01/2004 Outpatient Historical [facility] Family Medicine [place] [address] [address] Donte Borrego MD NO ADDRESS ON FILE ANEMIA NOS (Primary Dx); AFTERCARE RESIDENTIAL USE MEDICATN; GOUT NOS Social History Tobacco Use Types Packs/Day Years Used Date Smoking Tobacco: Never Assessed Sex and Gender Information Value Date Recorded Sex Assigned at Not on file Legal Sex Male 2:49 AM ROTARY ADJUSTER Gender Identity Not on file Sexual Orientation Not on file documented as of this encounter Plan of Treatment Not on file documented as of this encounter Visit Diagnoses Diagnosis Anemia, unspecified- Primary Encounter for long-term (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 of other medications Gout, unspecified documented in this encounter Care Teams Garment Turner Relationship Specialty Start Date End Date Cuba Solano MD PCP - General 07/11/09 documented as of this encounter
--- OUTSIDE RECORDS SUMMARY | 2025-04-14 20:37 | XMS_ITS | Encounter Summary ---
Author Organization [facility] Address [address] [place] [address] Care Team Providers Care Acquisition Consultant Name Role Phone Cuba Solano MD Primary Care Provider +1 -[phone] Encounter Details Date Type Department Care Team (Latest Contact Info) Description 02/01/2003 Outpatient Historical [facility] Family Medicine [place] [facility] [address] [address] Huey Upton Jr., MD [address] [place] [address] 248 [facility] [address] [place] [address] Benign hypertension (Primary Dx); ALLERGY, UNSPECIFIED Social History Tobacco Use Types Packs/Day Years Used Date Smoking Tobacco: Never Assessed Sex and Gender Information Value Date Recorded Sex Assigned at Not on file Legal Sex Male 2:49 AM HEALTH INFORMATION MANAGEMENT DIRECTOR Gender Identity Not on file Sexual Orientation Not on file documented as of this encounter Plan of Treatment Not on file documented as of this encounter Visit Diagnoses Diagnosis Benign hypertension- Primary Essential hypertension, benign Allergy, unspecified not elsewhere classified documented in this encounter Care Teams Acquisition Consultant Relationship Specialty Start Date End Date Cuba Solano MD PCP - General 07/11/09 documented as of this encounter
--- OUTSIDE RECORDS SUMMARY | 2025-04-14 20:37 | XMS_ITS | Encounter Summary ---
Author Organization [facility] Address [address] [place] [address] Care Team Providers Care Junior Loan Processor Name Role Phone Cuba Solano MD Primary Care Provider +1 -[phone] Encounter Details Date Type Department Care Team (Latest Contact Info) Description 11/01/2001 Outpatient Historical [facility] Family Medicine [place] [address] [address] Donte Borrego MD NO ADDRESS ON FILE ACUTE SINUSITIS NOS (Primary Dx); ALLERGIC RHINITIS NEC; Benign hypertension Social History Tobacco Use Types Packs/Day Years Used Date Smoking Tobacco: Never Assessed Sex and Gender Information Value Date Recorded Sex Assigned at Not on file Legal Sex Male 2:49 AM BIBLE TEACHER Gender Identity Not on file Sexual Orientation Not on file documented as of this encounter Plan of Treatment Not on file documented as of this encounter Visit Diagnoses Diagnosis Acute sinusitis, unspecified- Primary Allergic rhinitis due to other allergen Benign hypertension Essential hypertension, benign documented in this encounter Care Teams Junior Loan Processor Relationship Specialty Start Date End Date Cuba Solano MD PCP - General 07/11/09 documented as of this encounter
--- OUTSIDE RECORDS SUMMARY | 2025-04-14 20:37 | XMS_ITS | Encounter Summary ---
Author Organization [facility] Address [address] [place] [address] Care Team Providers Care Investigator Internal Revenue Name Role Phone Cuba Solano MD Primary Care Provider +1 -[phone] Encounter Details Date Type Department Care Team (Latest Contact Info) Description 01/10/2004 Outpatient Historical [facility] Family Medicine [place] [address] [address] Donte Borrego MD NO ADDRESS ON FILE Pain in limb (Primary Dx); JOINT PAIN-ANKLE Social History Tobacco Use Types Packs/Day Years Used Date Smoking Tobacco: Never Assessed Sex and Gender Information Value Date Recorded Sex Assigned at Not on file Legal Sex Male 2:49 AM HR CONSULTANT Gender Identity Not on file Sexual Orientation Not on file documented as of this encounter Plan of Treatment Not on file documented as of this encounter Visit Diagnoses Diagnosis Pain in limb- Primary Pain in soft tissues of limb Pain in joint, ankle and foot documented in this encounter Care Teams Investigator Internal Revenue Relationship Specialty Start Date End Date Cuba Solano MD PCP - General 07/11/09 documented as of this encounter
--- OUTSIDE RECORDS SUMMARY | 2025-04-14 20:37 | XMS_ITS | Encounter Summary ---
Author Organization [facility] Address [address] [place] [address] Care Team Providers Care Technical Sales Advisor Name Role Phone Cuba Solano MD Primary Care Provider +1 [phone] Encounter Details Date Type Department Care Team (Latest Contact Info) Description 10/16/2003 Outpatient Historical [facility] G[facility]enterology- [place] [address] [facility] [address] [place] [address] Sandro Haines MD [address] [facility] [address] [place] [address] MELENA, BLOOD IN STOOL (Primary Dx) Social History Tobacco Use Types Packs/Day Years Used Date Smoking Tobacco: Never Assessed Sex and Gender Information Value Date Recorded Sex Assigned at Not on file Legal Sex Male 2:49 AM HEALTH AND SAFETY INSTRUCTOR Gender Identity Not on file Sexual Orientation Not on file documented as of this encounter Plan of Treatment Not on file documented as of this encounter Visit Diagnoses Diagnosis Blood in stool- Primary documented in this encounter Care Teams Technical Sales Advisor Relationship Specialty Start Date End Date Cuba Solano MD PCP - General 07/11/09 documented as of this encounter
--- OUTSIDE RECORDS SUMMARY | 2025-04-14 20:37 | XMS_ITS | Encounter Summary ---
Author Organization [facility] Address [address] [place] [address] Care Team Providers Care Ham Smoker Name Role Phone Cuba Solano MD Primary Care Provider +1 [phone] Encounter Details Date Type Department Care Team (Latest Contact Info) Description 08/29/2001 Outpatient Historical [facility] Family Medicine [place] [address] [address] Donte Borrego MD NO ADDRESS ON FILE Benign hypertension (Primary Dx); TACHYCARDIA NOS Social History Tobacco Use Types Packs/Day Years Used Date Smoking Tobacco: Never Assessed Sex and Gender Information Value Date Recorded Sex Assigned at Not on file Legal Sex Male 2:49 AM HYDROCHLORIC ACID OPERATOR Gender Identity Not on file Sexual Orientation Not on file documented as of this encounter Plan of Treatment Not on file documented as of this encounter Visit Diagnoses Diagnosis Benign hypertension- Primary Essential hypertension, benign Tachycardia, unspecified documented in this encounter Care Teams Ham Smoker Relationship Specialty Start Date End Date Cuba Solano MD PCP - General 07/11/09 documented as of this encounter
--- OUTSIDE RECORDS SUMMARY | 2025-04-14 20:37 | XMS_ITS | Encounter Summary ---
Author Organization [facility] Address [address] [place] [address] Care Team Providers Care Inspector Casing Name Role Phone Cuba Solano MD Primary Care Provider +1 [phone] Encounter Details Date Type Department Care Team (Latest Contact Info) Description 09/01/2002 Outpatient Historical [facility] Family Medicine [place] [address] [address] Donte Borrego MD NO ADDRESS ON FILE ANEMIA NOS (Primary Dx) Social History Tobacco Use Types Packs/Day Years Used Date Smoking Tobacco: Never Assessed Sex and Gender Information Value Date Recorded Sex Assigned at Not on file Legal Sex Male 2:49 AM INSURANCE VERIFICATION REP Gender Identity Not on file Sexual Orientation Not on file documented as of this encounter Plan of Treatment Not on file documented as of this encounter Visit Diagnoses Diagnosis Anemia, unspecified- Primary documented in this encounter Care Teams Inspector Casing Relationship Specialty Start Date End Date Cuba Solano MD PCP - General 07/11/09 documented as of this encounter
--- OUTSIDE RECORDS SUMMARY | 2025-04-14 20:37 | XMS_ITS | Encounter Summary ---
Author Organization [facility] Address [address] [place] [address] Care Team Providers Care Director Of Cardiology Service Line Name Role Phone Cuba Solano MD Primary Care Provider [phone] [phone] Encounter Details Date Type Department Care Team (Latest Contact Info) Description 03/05/2004 Outpatient Historical [facility] Family Medicine [place] [id number] [address] [address] Donte Borrego MD NO ADDRESS ON FILE DIABETES MELLITUS TYPE II UNCONTR UNCOMPL (Primary Dx); ACUTE URI NOS Social History Tobacco Use Types Packs/Day Years Used Date Smoking Tobacco: Never Assessed Sex and Gender Information Value Date Recorded Sex Assigned at Not on file Legal Sex Male 2:49 AM BATCH OPERATOR Gender Identity Not on file Sexual Orientation Not on file documented as of this encounter Plan of Treatment Not on file documented as of this encounter Visit Diagnoses Diagnosis Type II or unspecified type diabetes mellitus 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, uncontrolled- Primary Acute upper respiratory infections of unspecified site documented in this encounter Care Teams Director Of Cardiology Service Line Relationship Specialty Start Date End Date Cuba Solano MD PCP - General 07/11/09 documented as of this encounter
--- OUTSIDE RECORDS SUMMARY | 2025-04-14 20:37 | XMS_ITS | Encounter Summary ---
Author Organization [facility] Address [address] [place] [address] Care Team Providers Care Employment Training Specialist Name Role Phone Cuba Solano MD Primary Care Provider +1 [phone] Encounter Details Date Type Department Care Team (Latest Contact Info) Description 04/10/2002 Outpatient Historical [facility] Family Medicine Angel[place] [address] [address] Donte Borrego MD NO ADDRESS ON FILE HYPERLIPIDEMIA NEC/NOS (Primary Dx) Social History Tobacco Use Types Packs/Day Years Used Date Smoking Tobacco: Never Assessed Sex and Gender Information Value Date Recorded Sex Assigned at Not on file Legal 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
--- OUTSIDE RECORDS SUMMARY | 2025-04-14 20:37 | XMS_ITS | Encounter Summary ---
Author Organization [facility] Address [address] [place] [address] Care Team Providers Care Slate Handler Name Role Phone Cuba Solano MD Primary Care Provider [phone] [phone] Encounter Details Date Type Department Care Team (Latest Contact Info) Description 11/02/2003 Outpatient Historical [facility] Family Medicine [place] [address] [address] Donte Borrego MD NO ADDRESS ON FILE ANEMIA NOS (Primary Dx) Social History Tobacco Use Types Packs/Day Years Used Date Smoking Tobacco: Never Assessed Sex and Gender Information Value Date Recorded Sex Assigned at Not on file Legal Sex Male 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
--- OUTSIDE RECORDS SUMMARY | 2025-04-14 20:37 | XMS_ITS | Encounter Summary ---
Author Organization [facility] Address [address] [place] [address] Care Team Providers Care Search Engine Optimization Specialist Name Role Phone Cuba Solano MD Primary Care Provider [phone] Encounter Details Date Type Department Care Team (Latest Contact Info) Description 02/25/2004 Outpatient Historical [facility] Family Medicine [place] [address] [address] Keyona Mccloud FNP NO ADDRESS ON FILE DIABETES MELLITUS TYPE II-UNCOMPL (CMS/HCC) (Primary Dx); ACUTE URI NOS Social History Tobacco Use Types Packs/Day Years Used Date Smoking Tobacco: Never Assessed Sex and Gender Information Value Date Recorded Sex Assigned at Not on file Legal Sex Male 2:49 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
--- OUTSIDE RECORDS SUMMARY | 2025-04-14 20:37 | XMS_ITS | Encounter Summary ---
Author Organization [facility] Address [address] [place] [address] Care Team Providers Care Food Technologist Name Role Phone Cuba Solano MD Primary Care Provider +1 [phone] Encounter Details Date Type Department Care Team (Latest Contact Info) Description 01/03/2003 Outpatient Historical [facility] Family Medicine [place] [address] [address] Donte Borrego MD NO ADDRESS ON FILE ACUTE PHARYNGITIS (Primary Dx); ACUTE URI NOS Social History Tobacco Use Types Packs/Day Years Used Date Smoking Tobacco: Never Assessed Sex and Gender Information Value Date Recorded Sex Assigned at Not on file Legal 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
--- OUTSIDE RECORDS SUMMARY | 2025-04-14 20:37 | XMS_ITS | Clinical Summary ---
Author Organization [facility] Address [address] [address] Care Team Providers Care Vitreo Retinal Surgeon Name Role Phone Loren Canada MD Primary Care Provider [phone] Allergies Active Allergy Reactions Criticality Noted Date [...] in the evening. Active ergocalciferol 1.25 MG (26421 UT) capsule Take 50,000 Units by mouth [...] Comments Blood Pressure 118/72 05/06/2023 11:00 AM TELEPHONE MESSENGER Pulse 81 05/06/2023 11:00 AM TELEPHONE MESSENGER Temperature - - Respiratory Rate - - Oxygen Saturation - - Inhaled Oxygen Concentration - - Weight 206 kg (455 lb) 05/06/2023 11:00 AM TELEPHONE MESSENGER p er patient Height 182.9 cm (6') 05/06/2023 11:00 AM TELEPHONE MESSENGER Body Mass Index 61.71 05/06/2023 11:00 AM TELEPHONE MESSENGER Plan of Treatment Health Maintenance Due Date [...] to Health Maintenance Insurance Medicare Medicaid [place] ([id number]) Care Teams Vitreo Retinal Surgeon Relationship Specialty Start Date End Date Loren Canada MD [address] [place] [address] PCP - General Family Medicine 09/22/22
--- OUTSIDE RECORDS SUMMARY | 2025-04-14 20:37 | XMS_ITS | Encounter Summary ---
Author Organization [facility] Address [address] [place] [address] Care Team Providers Care Child Care Lead Teacher Name Role Phone Cuba Solano MD Primary Care Provider [phone] Encounter Details Date Type Department Care Team (Latest Contact Info) Description 10/02/2003 Outpatient Historical [facility] Family Medicine [place] [address]92 [address] [address] Keyona Mccloud, LUCIEN NO ADDRESS ON FILE HYPERLIPIDEMIA NEC/NOS (Primary Dx) Social History Tobacco Use Types Packs/Day Years Used Date Smoking Tobacco: Never Assessed Sex and Gender Information Value Date Recorded Sex Assigned at Not on file Legal Sex Male 2:49 AM CLIENT SUPPORT COORDINATOR Gender Identity Not on file Sexual Orientation Not on file documented as of this encounter Plan of Treatment Not on file documented as of this encounter Visit Diagnoses Diagnosis Other and unspecified hyperlipidemia- Primary documented in this encounter Care Teams Child Care Lead Teacher Relationship Specialty Start Date End Date Cuba oSlano MD PCP - General 07/11/09 documented as of this encounter
--- OUTSIDE RECORDS SUMMARY | 2025-04-14 20:37 | XMS_ITS | Encounter Summary ---
Author Organization [facility] Address [address] [facility] Attn: [place] [address] Care Team Providers Care Production Support Engineer Name Role Phone Cuba Solano MD Primary Care Provider [phone] Encounter Details Date Type Department Care Team (Late st Contact Info) Description 10/05/2000 Outpatient Historical Donte Borrego MD NO ADDRESS ON FILE Social History Tobacco Use Types Packs/Day Years Used Date Smoking Tobacco: Never Assessed Sex and Gender Information Value Date Recorded Sex Assigned at Not on file Legal Sex Male 2:49 AM SWATCH MAKER Gender Identity Not on file Sexual Orientation Not on file documented as of this encounter Plan of Treatment Not on file documented as of this encounter Visit Diagnoses Not on filedocumented in this encounter Care Teams Production Support Engineer Relationship Specialty Start Date End Date Cuba Solano MD PCP - General 07/11/09 documented as of this encounter
--- OUTSIDE RECORDS SUMMARY | 2025-04-14 20:37 | XMS_ITS | Encounter Summary ---
Author Organization [facility] Address [address] [place] [address] Care Team Providers Care Salt Cutter Name Role Phone Cuba Solano MD Primary Care Provider [phone] Encounter Details Date Type Department Care Team (Latest Contact Info) Description 01/25/2002 Outpatient Historical [facility] Family Medicine [place] [id number] [address] Donte Borrego MD NO ADDRESS ON FILE OTHER MALAISE AND FATIGUE (Primary Dx) Social History Tobacco Use Types Packs/Day Years Used Date Smoking Tobacco: Never Assessed Sex and Gender Information Value Date Recorded Sex Assigned at Not on file Legal Sex Male 2: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
--- OUTSIDE RECORDS SUMMARY | 2025-04-14 20:37 | XMS_ITS | Encounter Summary ---
Author Organization [facility] Address [address] [place] [address] Care Team Providers Care Barrel Loader And Cleaner Name Role Phone Cuba Solano MD Primary Care Provider [phone] Encounter Details Date Type Department Care Team (Latest Contact Info) Description 10/12/2003 Outpatient Historical [facility] Family Medicine [place] [id number] [address] [address] Donte Borrego MD NO ADDRESS ON FILE GASTROINTEST HEMORR NOS (Primary Dx) Social History Tobacco Use Types Packs/Day Years Used Date Smoking Tobacco: Never Assessed Sex and Gender Information Value Date Recorded Sex Assigned at Not on file Legal Sex Male 2:49 AM FINISHER [employer]ODU[employer] Gender Identity Not on file Sexual Orientation Not on file documented as of this encounter Plan of Treatment Not on file documented as of this encounter Visit Diagnoses Diagnosis Hemorrhage of gastrointestinal tract, unspecified- Primary documented in this encounter Care Teams Barrel Loader And Cleaner Relationship Specialty Start Date End Date Cuba Solano MD PCP - General 07/11/09 documented as of this encounter
--- OUTSIDE RECORDS SUMMARY | 2025-04-14 20:37 | XMS_ITS | Encounter Summary ---
Author Organization [facility] Address [address] [place] [address] Care Team Providers Care Assembler Movement Name Role Phone Cuba Solano MD Primary Care Provider [phone] Encounter Details Date Type Department Care Team (Latest Contact Info) Description 04/10/2002 Outpatient [facility] Family Medicine [place] [address] [address] Donte Borrego MD NO ADDRESS ON FILE B-COMPLEX DEFIC NEC (Primary Dx); OTHER MALAISE AND FATIGUE; HYPERLIPIDEMIA NEC/NOS Social History Tobacco Use Types Packs/Day Years Used Date Smoking Tobacco: Never Assessed Sex and Gender Information Value Date Recorded Sex Assigned at Not on file Legal 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
--- OUTSIDE RECORDS SUMMARY | 2025-04-14 20:37 | XMS_ITS | Encounter Summary ---
Author Organization [facility] Address [address] [place] [address] Care Team Providers Care Senior J2Ee Developer Name Role Phone Cuba Solano MD Primary Care Provider [phone] [phone] Encounter Details Date Type Department Care Team (Latest Contact Info) Description 06/06/2003 Outpatient Historical [facility] Family Medicine [place] [id number] [address] [address] Keyona Mccloud, LUCIEN NO ADDRESS ON FILE ACUTE PHARYNGITIS (Primary Dx); ACUTE SINUSITIS NOS Social History Tobacco Use Types Packs/Day Years Used Date Smoking Tobacco: Never Assessed Sex and Gender Information Value Date Recorded Sex Assigned at Not on file Legal Sex Male 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
--- OUTSIDE RECORDS SUMMARY | 2025-04-14 20:37 | XMS_ITS | Encounter Summary ---
Author Organization [facility] Address [address] [place] [address] Care Team Providers Care Commercial Photographer Name Role Phone Cuba Solano MD Primary Care Provider [phone] [phone] Encounter Details Date Type Department Care Team (Latest Contact Info) Description 11/07/2001 Outpatient [facility] Family Medicine [place] [address] [address] Keyona Mccloud, LUCIEN NO ADDRESS ON FILE HORDEOLUM EXTERNUM (Primary Dx); ALLERGY, UNSPECIFIED Social History Tobacco Use Types Packs/Day Years Used Date Smoking Tobacco: Never Assessed Sex and Gender Information Value Date Recorded Sex Assigned at Not on file Legal Sex Male 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
--- OUTSIDE RECORDS SUMMARY | 2025-04-14 20:37 | XMS_ITS | Encounter Summary ---
Author Organization [facility] Address [address] [place] [address] Care Team Providers Care Sweatband Shaper Name Role Phone Cuba Solano MD Primary Care Provider [phone] [phone] Encounter Details Date Type Department Care Team (Latest Contact Info) Description 08/09/2002 Outpatient Historical [facility] Family Medicine [place] 0[address]112 [address] [address] Donte Borrego MD NO ADDRESS ON FILE Benign hypertension (Primary Dx); ALLERGY, UNSPECIFIED Social History Tobacco Use Types Packs/Day Years Used Date Smoking Tobacco: Never Assessed Sex and Gender Information Value Date Recorded Sex Assigned at Not on file Legal Sex Male 2:49 AM JOURNEYMAN 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
--- OUTSIDE RECORDS SUMMARY | 2025-04-14 20:37 | XMS_ITS | Encounter Summary ---
Author Organization [facility] Address [address] [place] [address] Care Team Providers Care Flask Pusher Name Role Phone Cuba Solano MD Primary Care Provider +1 [phone] Encounter Details Date Type Department Care Team (Latest Contact Info) Description 02/01/2002 Outpatient Historical [facility] Family Medicine [place] [address] [address] Donte Borrego MD NO ADDRESS ON FILE HYPERTENSION NOS (Primary Dx); LIPOMA NOS; DISEASES OF LIPS Social History Tobacco Use Types Packs/Day Years Used Date Smoking Tobacco: Never Assessed Sex and Gender Information Value Date Recorded Sex Assigned at Not on file Legal 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
--- OUTSIDE RECORDS SUMMARY | 2025-04-14 20:37 | XMS_ITS | Encounter Summary ---
Author Organization [facility] Address [address] [place] [address] Care Team Providers Care Asphalt Tamper Name Role Phone Cuba Solano MD Primary Care Provider +1 [phone] Encounter Details Date Type Department Care Team (Latest Contact Info) Description 02/15/2004 Outpatient Historical [facility] Family Medicine [place] [address] [address] Keyona Mccloud, LUCIEN NO ADDRESS ON FILE Vaccine for influenza (Primary Dx); ABN BLOOD CHEMISTRY NEC; URINARY FREQUENCY Social History Tobacco Use Types Packs/Day Years Used Date Smoking Tobacco: Never Assessed Sex and Gender Information Value Date Recorded Sex Assigned at Not on file Legal Sex Male 2:49 AM 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
--- OUTSIDE RECORDS SUMMARY | 2025-04-14 20:37 | XMS_ITS | Encounter Summary ---
Author Organization [facility] Address [address] [place] [address] Care Team Providers Care Yard Labor Supervisor Name Role Phone Cuba Solano MD Primary Care Provider +1 [phone] Encounter Details Date Type Department Care Team (Latest Contact Info) Description 01/04/2002 Outpatient Historical [facility] Family Medicine [place] [address] [address] Donte Borrego MD NO ADDRESS ON FILE ACUTE PHARYNGITIS (Primary Dx); ALLERGIC RHINITIS NEC Social History Tobacco Use Types Packs/Day Years Used Date Smoking Tobacco: Never Assessed Sex and Gender Information Value Date Recorded Sex Assigned at Not on file Legal 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
--- OUTSIDE RECORDS SUMMARY | 2025-04-14 20:37 | XMS_ITS | Encounter Summary ---
Author Organization [facility] Address [address] [place] [address] Care Team Providers Care Actuarial Associate Name Role Phone Cuba Solano MD Primary Care Provider +1 -[phone] Encounter Details Date Type Department Care Team (Latest Contact Info) Description 12/25/2003 Outpatient Historical [facility] Family Medicine Angelica [address] [address] Donte Borrego MD NO ADDRESS ON FILE EDEMA (Primary Dx); APNEA; POLYP OF NASAL CAVITY Social History Tobacco Use Types Packs/Day Years Used Date Smoking Tobacco: Never Assessed Sex and Gender Information Value Date Recorded Sex Assigned at Not on file Legal Sex Male 2:49 AM CATCHER FILTER TIP Gender Identity Not on file Sexual Orientation Not on file documented as of this encounter Plan of Treatment Not on file documented as of this encounter Visit Diagnoses Diagnosis Edema- Primary Apnea Polyp of nasal cavity documented in this encounter Care Teams Actuarial Associate Relationship Specialty Start Date End Date Cuba Solano MD PCP - General 07/11/09 documented as of this encounter
--- OUTSIDE RECORDS SUMMARY | 2025-04-14 20:37 | XMS_ITS | Encounter Summary ---
Author Organization [facility] Address [address] [place] [address] Care Team Providers Care Assistant Teacher Primary Name Role Phone Cuba Solano MD Primary Care Provider +1 [phone] Encounter Details Date Type Department Care Team (Latest Contact Info) Description 12/04/2003 Outpatient Historical [facility] Family Medicine [place] [address] [address] Donte Borrego MD NO ADDRESS ON FILE URIN TRACT INFECTION NOS (Primary Dx); ANEMIA NOS; UNSPEC CONSTIPATION Social History Tobacco Use Types Packs/Day Years Used Date Smoking Tobacco: Never Assessed Sex and Gender Information Value Date Recorded Sex Assigned at Not on file Legal Sex Male 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
--- OUTSIDE RECORDS SUMMARY | 2025-04-14 20:37 | XMS_ITS | Encounter Summary ---
Author Organization [facility] Address [address] [place] [address] Care Team Providers Care Construction Rep Name Role Phone Cuba Solano MD Primary Care Provider +1 [phone] Encounter Details Date Type Department Care Team (Latest Contact Info) Description 10/16/2003 Outpatient Historical [facility] Endoscopy [address] 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
--- OUTSIDE RECORDS SUMMARY | 2025-04-14 20:37 | XMS_ITS | Encounter Summary ---
Author Organization [facility] Address [address] [place] [address] Care Team Providers Care Rn Midwife Name Role Phone Cuba Solano MD Primary Care Provider +1 [phone] Encounter Details Date Type Department Care Team (Latest Contact Info) Description 01/03/2004 Outpatient Historical [facility] Family Medicine [place]ica [place] 130672 [address] [address] Keyona Mccloud, LUCIEN NO ADDRESS ON FILE ANEMIA NOS (Primary Dx) Social History Tobacco Use Types Packs/Day Years Used Date Smoking Tobacco: Never Assessed Sex and Gender Information Value Date Recorded Sex Assigned at Not on file Legal Sex Male 2:49 AM PAINTER ROUGH Gender Identity Not on file Sexual Orientation Not on file documented as of this encounter Plan of Treatment Not on file documented as of this encounter Visit Diagnoses Diagnosis Anemia, unspecified- Primary documented in this encounter Care Teams Rn Midwife Relationship Specialty Start Date End Date Cuba Solano MD PCP - General 07/11/09 documented as of this encounter
--- OUTSIDE RECORDS SUMMARY | 2025-04-14 20:37 | XMS_ITS | Encounter Summary ---
Author Organization [facility] Address [address] [place] [address] Care Team Providers Care Hides And Skins Colorer Name Role Phone Cuba Solano MD Primary Care Provider +1 [phone] Encounter Details Date Type Department Care Team (Latest Contact Info) Description 05/04/2003 Outpatient Historical [facility] Family Medicine [place] [id number] [address] Keyona Mccloud, LUCIEN NO ADDRESS ON FILE ACUTE URI NOS (Primary Dx); PERNICIOUS ANEMIA Social History Tobacco Use Types Packs/Day Years Used Date Smoking Tobacco: Never Assessed Sex and Gender Information Value Date Recorded Sex Assigned at Not on file Legal 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
--- OUTSIDE RECORDS SUMMARY | 2025-04-14 20:37 | XMS_ITS | Encounter Summary ---
Author Organization [facility] Address [address] [place] [address] Care Team Providers Care Band Splicer Name Role Phone Cuba Solano MD Primary Care Provider +1 [phone] Encounter Details Date Type Department Care Team (Latest Contact Info) Description 11/12/2003 Outpatient Historical [facility] Family Medicine [place] 8[address] [address] Donte Borrego MD NO ADDRESS ON FILE URIN TRACT INFECTION NOS (Primary Dx) Social History Tobacco Use Types Packs/Day Years Used Date Smoking Tobacco: Never Assessed Sex and Gender Information Value Date Recorded Sex Assigned at Not on file 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
--- OUTSIDE RECORDS SUMMARY | 2025-04-14 20:38 | XMS_ITS | Encounter Summary ---
Author Organization [facility] Address [address] [place] [address] Care Team Providers Care Rn Emergency Name Role Phone Cuba Solano MD Primary Care Provider +1 [phone] Encounter Details Date Type Department Care Team (Latest Contact Info) Description 03/05/1999 Outpatient Historical [facility] Family Medicine Angelica [address] [address] Donte Borrego MD NO ADDRESS ON FILE Need vaccination-viral disease (Primary Dx); Encounter for long-term (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 of other medications Social History Tobacco Use Types Packs/Day Years Used Date Smoking Tobacco: Never Assessed Sex and Gender Information Value Date Recorded Sex Assigned at Not on file Legal 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
--- OUTSIDE RECORDS SUMMARY | 2025-04-14 20:38 | XMS_ITS | Encounter Summary ---
Author Organization [facility] Address [address] [place] [address] Care Team Providers Care Product Safety Professional Name Role Phone Cuba Solano MD Primary Care Provider +1 [phone] Encounter Details Date Type Department Care Team (Latest Contact Info) Description 04/08/1998 Outpatient Historical [facility] Family Medicine Angelica [address] [address] Donte Borrego MD NO ADDRESS ON FILE Generalized osteoarthrosis, unspecified site (Primary Dx); Nonspecific elevation of levels of transaminase or lactic acid dehydrogenase (LDH); Need vaccination-viral disease Social History Tobacco Use Types Packs/Day Years Used Date Smoking Tobacco: Never Assessed Sex and Gender Information Value Date Recorded Sex Assigned at Not on file 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
--- OUTSIDE RECORDS SUMMARY | 2025-04-14 20:38 | XMS_ITS | Encounter Summary ---
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
--- OUTSIDE RECORDS SUMMARY | 2025-04-14 20:38 | XMS_ITS | Encounter Summary ---
Author Organization [facility] Address [address] [place] [address] Care Team Providers Care Postal Support Employee Name Role Phone Cuba Solano MD Primary Care Provider +1 -[phone] Encounter Details Date Type Department Care Team (Latest Contact Info) Description 08/13/1998 Outpatient Historical [facility] Moi George MD [address] [place] [address] Abdominal pain, unspecified site (Primary Dx); Blood in stool; Esophageal reflux Social History Tobacco Use Types Packs/Day Years Used Date Smoking Tobacco: Never Assessed Sex and Gender Information Value Date Recorded Sex Assigned at Not on file 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
--- OUTSIDE RECORDS SUMMARY | 2025-04-14 20:38 | XMS_ITS | Encounter Summary ---
Author Organization [employer] [facility] Address [address] [place] [address] Care Team Providers Care Tag Marker Name Role Phone Cuba Solano MD Primary Care Provider +1 -[phone] Encounter Details Date Type Department Care Team (Latest Contact Info) Description 01/15/1998 Outpatient Historical [facility] Moi George MD [address] [place] [address] Blood in stool (Primary Dx); Nonspecific abnormal results of liver function study Social History Tobacco Use Types Packs/Day Years Used Date Smoking Tobacco: Never Assessed Sex and Gender Information Value Date Recorded Sex Assigned at Not on file Legal 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
--- OUTSIDE RECORDS SUMMARY | 2025-04-14 20:38 | XMS_ITS | Encounter Summary ---
Author Organization [facility] Address [address] [place] [address] Care Team Providers Care Power Lineman Technician Name Role Phone Cuba Solano MD Primary Care Provider +1 -[phone] Encounter Details Date Type Department Care Team (Latest Contact Info) Description 01/07/2000 Outpatient Historical [facility] Family Medicine [place] [address] [address] Donte Borrego MD NO ADDRESS ON FILE Other abnormal clinical finding (Primary Dx); Encounter for long-term (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 of other medications; Unspecified essential hypertension Social History Tobacco Use Types Packs/Day Years Used Date Smoking Tobacco: Never Assessed Sex and Gender Information Value Date Recorded Sex Assigned at Not on file 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
--- OUTSIDE RECORDS SUMMARY | 2025-04-14 20:38 | XMS_ITS | Encounter Summary ---
Author Organization [facility] Address [address] [place] [address] Care Team Providers Care Manager R D Name Role Phone Cuba Solano MD Primary Care Provider +1 -[phone] Encounter Details Date Type Department Care Team (Latest Contact Info) Description 02/19/1998 Outpatient Historical [facility] [place] [address] [place] [address] Other convulsions (Primary Dx) Social History Tobacco Use Types Packs/Day Years Used Date Smoking Tobacco: Never Assessed Sex and Gender Information Value Date Recorded Sex Assigned at Not on file Legal 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
--- OUTSIDE RECORDS SUMMARY | 2025-04-14 20:38 | XMS_ITS | Encounter Summary ---
Author Organization 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
--- OUTSIDE RECORDS SUMMARY | 2025-04-14 20:38 | XMS_ITS | Encounter Summary ---
Author Organization [facility] Address [address] [facility] Attn: [place] [address] Care Team Providers Care Party Plan Sales Host/Hostess Name Role Phone Cuba Solano MD Primary Care Provider +1 [phone] Encounter Details Date Type Department Care Team (Late st Contact Info) Description 07/07/1999 Outpatient Historical Donte Borrego MD NO ADDRESS ON FILE Social History Tobacco Use Types Packs/Day Years Used Date Smoking Tobacco: Never Assessed Sex and Gender Information Value Date Recorded Sex Assigned at Not on file Legal 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
--- OUTSIDE RECORDS SUMMARY | 2025-04-14 20:38 | XMS_ITS | Encounter Summary ---
Author Organization [facility] Address [address] [place] [address] Care Team Providers Care Oven Technician Name Role Phone Cuba Solano MD Primary Care Provider +1 -[phone] Encounter Details Date Type Department Care Team (Latest Contact Info) Description 01/29/1998 Outpatient Historical [facility] Family Medicine [place] [address] [address] Donte Borrego MD NO ADDRESS ON FILE Unspecified suppurative otitis media (Primary Dx) Social History Tobacco Use Types Packs/Day Years Used Date Smoking Tobacco: Never Assessed Sex and Gender Information Value Date Recorded Sex Assigned at Not on file Legal 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
--- OUTSIDE RECORDS SUMMARY | 2025-04-14 20:38 | XMS_ITS | Encounter Summary ---
Author Organization [facility] Address [address] [place] [address] Care Team Providers Care Delphi Developer Name Role Phone Cuba Solano MD Primary Care Provider +1 -[phone] Encounter Details Date Type Department Care Team (Latest Contact Info) Description 09/10/1999 Outpatient Historical [facility] Moi George MD [address] [place] [address] Esophageal reflux (Primary Dx); Diaphragmatic hernia Social History Tobacco Use Types Packs/Day Years Used Date Smoking Tobacco: Never Assessed Sex and Gender Information Value Date Recorded Sex Assigned at Not on file Legal 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
--- OUTSIDE RECORDS SUMMARY | 2025-04-14 20:38 | XMS_ITS | Encounter Summary ---
Author Organization [facility] Address [address] [place] [address] Care Team Providers Care Hoisting Engineer Name Role Phone Cuba Solano MD Primary Care Provider +1 -[phone] Encounter Details Date Type Department Care Team (Latest Contact Info) Description 08/13/1998 Outpatient Historical [facility] [place] [address] [place] [address] Other convulsions (Primary Dx) Social History Tobacco Use Types Packs/Day Years Used Date Smoking Tobacco: Never Assessed Sex and Gender Information Value Date Recorded Sex Assigned at Not on file Legal Sex Male 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
--- OUTSIDE RECORDS SUMMARY | 2025-04-14 20:38 | XMS_ITS | Encounter Summary ---
Author Organization [facility] Address [address] [place] [address] Care Team Providers Care Color Control Supervisor Name Role Phone Cuba Solano MD Primary Care Provider +1 -[phone] Encounter Details Date Type Department Care Team (Latest Contact Info) Description 04/10/1999 Outpatient Historical [facility] Family Medicine [place] [address] [address] Donte Borrego MD NO ADDRESS ON FILE Unspecified essential hypertension (Primary Dx) Social History Tobacco Use Types Packs/Day Years Used Date Smoking Tobacco: Never Assessed Sex and Gender Information Value Date Recorded Sex Assigned at Not on file Legal Sex Male 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
--- OUTSIDE RECORDS SUMMARY | 2025-04-14 20:38 | XMS_ITS | Encounter Summary ---
Author Organization [facility] Address [address] [place] [address] Phone Care Team Providers Care Ammonia Operator Name Role Phone Loren Canada MD Primary Care Provider [phone] Encounter Details Date Type Department Care Team (Late st Contact Info) Description 09/22/2022 [facility] Only [facility] [address] [facility] [address] [place] [address] Chronic kidney disease stage 3B [...] (HCC) documented in this encounter Care Teams Ammonia Operator Relationship Specialty Start Date End Date Loren Canada MD [address] [place], [place] [id number] PCP - General Family Medicine 09/22/22 documented as of this encounter
--- OUTSIDE RECORDS SUMMARY | 2025-04-14 20:38 | XMS_ITS | Encounter Summary ---
Author Organization [facility] Address [address] [place] [address] Care Team Providers Care Payroll And Benefits Manager Name Role Phone Cuba Solano MD Primary Care Provider [phone] Encounter Details Date Type Department Care Team (Latest Contact Info) Description 02/19/1998 Outpatient Historical [facility] Moi George MD [address] [place] [address] Benign joe lg bowel (Primary Dx); Unspecified hemorrhoids 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 Social History Tobacco Use Types Packs/Day Years Used Date Smoking Tobacco: Never Assessed Sex and Gender Information Value Date Recorded Sex Assigned at Not on file Legal 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
--- OUTSIDE RECORDS SUMMARY | 2025-04-14 20:38 | XMS_ITS | Encounter Summary ---
Author Organization [facility] Address [address] [place] [address] Care Team Providers Care Police Or Patrol Park Officer Name Role Phone Cuba Solano MD Primary Care Provider [phone] Encounter Details Date Type Department Care Team (Latest Contact Info) Description 08/15/1999 Outpatient Historical HIS [facility] [place] [address] [place] [address] Other convulsions (Primary Dx) Social History Tobacco Use Types Packs/Day Years Used Date Smoking Tobacco: Never Assessed Sex and Gender Information Value Date Recorded Sex Assigned at Not on file Legal Sex Male 2:49 AM HEAD OF PHYSICS Gender Identity Not on file Sexual Orientation Not on file documented as of this encounter Plan of Treatment Not on file documented as of this encounter Visit Diagnoses Diagnosis Other convulsions- Primary documented in this encounter Care Teams Police Or Patrol Park Officer Relationship Specialty Start Date End Date Cuba Solano MD PCP - General 07/11/09 documented as of this encounter
--- OUTSIDE RECORDS SUMMARY | 2025-04-14 20:38 | XMS_ITS | Encounter Summary ---
Author Organization [facility] Address [address] [place] [address] Care Team Providers Care Business Center Attendant Name Role Phone Cuba Solano MD Primary Care Provider [phone] Encounter Details Date Type Department Care Team (Latest Contact Info) Description 04/04/1999 Outpatient Historical [facility] Family [facility] [place]ica [facility] [address] [address] Zara Royal, DO [address] [place] [address] Edema (Primary Dx); Unspecified essential hypertension Social History Tobacco Use Types Packs/Day Years Used Date Smoking Tobacco: Never Assessed Sex and Gender Information Value Date Recorded Sex Assigned at Not on file Legal Sex Male 2:49 AM SUPERVISOR COMPRESSED YEAST Gender Identity Not on file Sexual Orientation Not on file documented as of this encounter Plan of Treatment Not on file documented as of this encounter Visit Diagnoses Diagnosis Edema- Primary Unspecified essential hypertension documented in this encounter Care Teams Business Center Attendant Relationship Specialty Start Date End Date Cuba Solano MD PCP - General 07/11/09 documented as of this encounter
--- OUTSIDE RECORDS SUMMARY | 2025-04-14 20:38 | XMS_ITS | Encounter Summary ---
Author Organization [facility] Address [address] [place] [address] Care Team Providers Care Backup Administrative Coordinator Name Role Phone Cuba Solano MD Primary Care Provider [phone] Encounter Details Date Type Department Care Team (Latest Contact Info) Description 07/08/1998 Outpatient Historical [facility] Family Medicine Angelica [address] [address] Donte Borrego MD NO ADDRESS ON FILE Acute infection of pinna (Primary Dx); Acute perichondritis pinna; Malaise and fatigue; Other specified disorders of liver Social History Tobacco Use Types Packs/Day Years Used Date Smoking Tobacco: Never Assessed Sex and Gender Information Value Date Recorded Sex Assigned at Not on file Legal Sex Male 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
--- OUTSIDE RECORDS SUMMARY | 2025-04-14 20:38 | XMS_ITS | Encounter Summary ---
Author Organization [facility] Address [address] [place] [address] Care Team Providers Care Coating And Embossing Unit Operator Name Role Phone Cuba Solano MD Primary Care Provider [phone] Encounter Details Date Type Department Care Team (Latest Contact Info) Description 07/11/1999 Outpatient Historical [facility] Family Medicine [place] [address] [address] Donte Borrego MD NO ADDRESS ON FILE Unspecified essential hypertension (Primary Dx); Other convulsions; Allergy, unspecified not elsewhere classified Social History Tobacco Use Types Packs/Day Years Used Date Smoking Tobacco: Never Assessed Sex and Gender Information Value Date Recorded Sex Assigned at Not on file Legal 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
--- OUTSIDE RECORDS SUMMARY | 2025-04-14 20:38 | XMS_ITS | Encounter Summary ---
Author Organization [facility] Address [address] [place] [address] Care Team Providers Care College Sports Coach Name Role Phone Cuba Solano MD Primary Care Provider [phone] Encounter Details Date Type Department Care Team (Latest Contact Info) Description 12/03/1998 Outpatient Historical [facility] Family Medicine [place] [address] [address] Donte Borrego MD NO ADDRESS ON FILE Other and unspecified hyperlipidemia (Primary Dx); Acute conjunctivitis, unspecified; Unspecified essential hypertension; Allergy, unspecified not elsewhere classified Social History Tobacco Use Types Packs/Day Years Used Date Smoking Tobacco: Never Assessed Sex and Gender Information Value Date Recorded Sex Assigned at Not on file 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
--- OUTSIDE RECORDS SUMMARY | 2025-04-14 20:38 | XMS_ITS | Encounter Summary ---
Author Organization [facility] Address [address] [place] [address] Care Team Providers Care Decorator Mannequin Name Role Phone Cuba Solano MD Primary Care Provider [phone] [phone] Encounter Details Date Type Department Care Team (Latest Contact Info) Description 10/06/1999 Outpatient Historical [facility] Family Medicine [place] [address] [address] Donte Borrego MD NO ADDRESS ON FILE Esophageal reflux (Primary Dx); Other and unspecified hyperlipidemia; Unspecified essential hypertension; Nonspecific abnormal results of liver function study Social History Tobacco Use Types Packs/Day Years Used Date Smoking Tobacco: Never Assessed Sex and Gender Information Value Date Recorded Sex Assigned at Not on file 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
--- OUTSIDE RECORDS SUMMARY | 2025-04-14 20:38 | XMS_ITS | Encounter Summary ---
Author Organization [facility] Address [address] [place] [address] Care Team Providers Care Veterinary Meat Inspector Name Role Phone Cuba Solano MD Primary Care Provider [phone] Encounter Details Date Type Department Care Team (Latest Contact Info) Description 08/15/1999 Outpatient Historical [facility] Moi George MD [address] [place] [address] Nonspecific abnormal results of liver function study (Primary Dx); Esophageal reflux; Unspecified hemorrhoids 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 Social History Tobacco Use Types Packs/Day Years Used Date Smoking Tobacco: Never Assessed Sex and Gender Information Value Date Recorded Sex Assigned at Not on file 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
--- OUTSIDE RECORDS SUMMARY | 2025-04-14 20:38 | XMS_ITS | Encounter Summary ---
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
--- OUTSIDE RECORDS SUMMARY | 2025-04-14 20:38 | XMS_ITS | Encounter Summary ---
Author Organization [facility] Address [address] [place] [address] Care Team Providers Care Slot Floorperson Name Role Phone Cuba Solano MD Primary Care Provider [phone] Encounter Details Date Type Department Care Team (Late st Contact Info) Description 07/07/[address] 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
--- OUTSIDE RECORDS SUMMARY | 2025-04-14 20:38 | XMS_ITS | Encounter Summary ---
Author Organization [facility] Address [address] [place] [address] Care Team Providers Care Meat Molder Name Role Phone Cuba Solano MD Primary Care Provider [phone] Encounter Details Date Type Department Care Team (Latest Contact Info) Description 10/08/1998 Outpatient Historical [facility] Family Medicine [place] [address] [address] Donte Borrego MD NO ADDRESS ON FILE Esophageal reflux (Primary Dx); Unspecified essential hypertension; Unspecified disorder of liver Social History Tobacco Use Types Packs/Day Years Used Date Smoking Tobacco: Never Assessed Sex and Gender Information Value Date Recorded Sex Assigned at Not on file 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
--- OUTSIDE RECORDS SUMMARY | 2025-04-14 20:38 | XMS_ITS | Encounter Summary ---
Author Organization [facility] Address [address] [place] [address] Care Team Providers Care Ginger Farmer Name Role Phone Cuba Solano MD Primary Care Provider +1 [phone] Encounter Details Date Type Department Care Team (Latest Contact Info) Description 06/17/[address] 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
--- OUTSIDE RECORDS SUMMARY | 2025-04-14 20:39 | XMS_ITS | Clinical Summary ---
Author Organization [facility] Address [address] [place] [address] Care Team Providers Care Flight Operations Coordinator Name Role Phone Cuba Solano MD Primary Care Provider +1 [phone] Allergies Active Allergy Reactions Criticality Noted Date [...] mL 30 x 1/2 Misc Syrg by [facility]Non-Drug; Combo Route) route. 100 Syringe 11 05/30/19 [...] hours. Active Water Liquid 1 Gallon by [facility]Non-Drug; Combo Route) route daily. 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 Gender Identity Not on file Sexual [...] HEMOGLOBIN A1C 6.9(H) 4.0 - 6.0 % [facility] Blood specimen (specimen) 10/11/2008 1:40 PM CDT 10/11/2008 1:41 PM CDT us Katie Acosta DO CHEMISTRY ORDERABLES Final Result Performing Organization Address [facility] Phone Number INTERFACE SYSTEM Refer to clinic/hospital department [facility] CLIA# [id number] [address] [place] [address] * (ABNORMAL) MICROALBUMIN, RANDOM URINE (09/27/2008 1:30 PM CDT) MICROALBUMIN, URINE 20(H) <20 MG/L [facility] Blood specimen (specimen) 09/27/2008 1:30 PM CDT 09/27/2008 1:31 PM CDT Katie Acosta DO URINE ORDERABLES Susanne l Result Performing Organization Address [facility] Phone Number INTERFACE SYSTEM Refer to clinic/hospital department [facility] CLIA# [id number] [address] [place] [address] * (ABNORMAL) LIPID PANEL (09/27/2008 1:30 PM CDT) CHOLESTEROL 196 100 - 200 MG/DL [facility] TRIGLYCERIDE 218(H) 0 - 150 MG/DL [facility] HDL 23(L) 40 - 60 MG/DL [facility] LDL CALCULATED 129(H) 58 - 100 MG/DL [facility] Comment: CALCULATED LDL REFERENCE: < 100 Optimal 100 - 129 Near Optimal 130 - 159 Borderline High > 160 High Risk CHOL/HDL RATIO 8.52(H) 3.43 - 4.97 RATIO [facility] Blood specimen (specimen) 09/27/2008 1:30 PM CDT 09/27/2008 1:31 PM CDT Katie Acosta DO CHEMISTRY ORDERABLES Final Result Performing Organization Address [facility] Phone Number INTERFACE SYSTEM Refer to clinic/hospital department [facility] CLIA# [id number] [address] [place] [address] from Last 3 Months or Most Recently Relevant to Health Maintenance Insurance MEDICARE PART A AND B MEDICAID [place] Advance Directives For more information, please contact: [phone] Documents on File Type Date Recorded Patient Research Coordinator Expl anation Advance Directive POA 01/20/2013 8:55 AM A dvance Directive POA Care Teams Flight Operations Coordinator Relationship Specialty Start Date End Date Cuba Solano MD PCP - General 07/11/09
--- OUTSIDE RECORDS SUMMARY | 2025-04-14 20:39 | XMS_ITS | Continuity of Care Document ---
Author Organization RASHEED - Aravind Barboza [facility], [place], [facility]) Address [address] [place] [address] Assessment No assessment recorded. Plan of Treatment [...] By Organization Details Last Modified Time 03/22/2025 [id number] Admitted with sepsis and volume overload. Evaluated by hematology and not able to use steroids with volume issues. He is planning to go to [place] to hear options for for granulomatous disease affecting his liver. Sleep study soon. [email or web address] Not available 03/25/2025 15:23:44 Reason for Referral None Reported. Problems Name Problem SNOMED Code Status Onset Date Resolution Date Notes Provider Name and Address Organization Details Recorded Time Essential hypertens ion 92235980 Active 2007 ESSENTIAL HYPERTENS ION; 8 2:16PM by Karla Joseph LPN, Office Visit; Promoted; acuity set as *; Not Available [facility] 3 03:17:47 Allergic rhinitis 86627900 Active 2007 ALLERGIC RHINITIS; 8 2:16PM by Karla Joseph LPN, Office Visit; Promoted; acuity set as *; Not Available [facility] 3 03:17:47 Persisten t insomnia 650950473 Active 2007 PERSISTEN T INSOMNIA; 8 2:16PM by Karla Joseph LPN, Office Visit; Promoted; acuity set as *; Not Available [facility] 3 03:17:52 Fracture of ankle 92632434 Active 2007 Ankle Fracture; 8 2:16PM by Karla Joseph LPN, Office Visit; Promoted; acuity set as *; Not Available [facility] 3 03:17:53 Peptic ulcer 41594184 Active 2007 PEPTIC ULCER; 8 2:16PM by Karla Joseph LPN, Office Visit; Promoted; acuity set as *; Not Available [facility] 3 03:17:53 Type 1 diabetes mellitus 65096961 Active 2007 DIABETES MELLITUS TYPE I; 8 2:16PM by Karla Joseph LPN, Office Visit; Promoted; acuity set as *; Not Available [facility] 3 03:17:58 Constipat ion 19043857 Active 2007 CONSTIPAT ION; 8 2:16PM by Karla Joseph LPN, Office Visit; Promoted; acuity set as *; Not Available [facility] 3 03:17:58 Amputated above knee 846385471 Active 2007 ABOVE KNEE AMPUTATIO N STATUS; 8 2:16PM by Karla Joseph LPN, Office Visit; Promoted; acuity set as *; Not Available [facility] 3 03:17:59 History of depressio n 051094795 Active 2007 DEPRESSIO N, NOS; 8 2:16PM by Karla Joseph LPN, Office Visit; Promoted; acuity set as *; Not Available [facility] 3 03:18:00 Hyperglyc emia due to type 2 diabetes mellitus 58116915086 9109 Active 2023 NATHANAEL tavarez [facility] 4 13:09:52 Chronic back pain greater than three months duration 36143660057 2 Active 2023 NATHANAEL tavarez [facility] 4 15:23:19 Blepharit is of right eyelid 80105901155 9103 Active 2024 NATHANAEL VICTORIA [facility] 5 15:11:18 Congestiv e heart failure 55956807 Active 2024 NATHANAEL VICTORIA [facility] 5 16:21:48 Acute right otitis media 112973594 Active 20[facility] 5 16:28:04 Pain of right shoulder joint 22844428208 364319 Active 20[facility] 17:59:42 Hepatospl enomegaly 74093701 Active 2024 NATHANAEL VICTORIA [facility] 14:35:12 Thrombocy topenic disorder 607454637 Active 2024 NATHANAEL VICTORIA [facility] 14:35:13 Bilateral lower limb edema 584465281 Active 2024 MARLON HADOMENIC [facility] 5 15:35:25 Acute urinary tract infection 778194278 Active 2024 NATHANAEL VICTORIA [facility] 14:32:57 Sarcoidos is 12985697 Active 2024 NATHANAEL VICTORIA [facility] 14:33:01 Problem Notes None recorded. Medical Equipment None Reported. Allergies Allergen ID Allergen Name Allergen Category Reaction Reaction Severity Criticality Documentation Date Start Date Code Code System Note Provider Name and Address Organization Details Recorded Time 57158 Product containin g penicilli n (product) medicatio n Not available Not available Not available 11/28/2022 67330 8001 SNOMED Comme nt: Recor ded 09/01 2:16P M by Briseida Joseph LPN, Offic e Visit ; Domingo rubio; Shruthi wade ce: *; ; Not Available [facility] 3 02:25:17 27840 Substance with sulfonami de structure and antibacte rial mechanism of action (substanc e) medicatio n Not available Not available Not available 03/22/2025 80682 8003 SNOMED Not Available david - [employer] - prod 5 06:48:45 78102 sulfameth oxazole / trimethop rim medicatio n rash Not available [facility] 03/22/20252007 75641 RxNorm Not Available david [employer] - prod 5 06:50:41 [...] Address Organization Details Last Updated DateTime 5 532509. 01 g 76 /min 15 /min 98.1 [degF] 98 % 102/58 mm[Hg] NATHANAEL VICTORIA [facility], [facility] 5 14:29:59 Social History None recorded. Functional Status None recorded. Mental Status None recorded. Family History Nothing Reported. Medical History No medical history recorded. Immunizations Vaccine Type Date Status Note Provider Nam e and Address Organization Details Recorded Time influenza, unspecified formulation 8 completed Not Available [facility] 04/05/2025 12:29:13 Influenza, split virus, trivalent, preservative 0 completed Not Available [facility] 04/05/2025 12:29:13 COVID-19, mRNA, LNP-S, PF, 100 mcg/0.5mL dose or 50 mcg/0.25mL dose 1 completed Not Available [facility] 04/05/2025 12:29:13 COVID-19, mRNA, LNP-S, PF, 100 mcg/0.5mL dose or 50 mcg/0.25mL dose 1 completed Not Available [facility] 04/05/2025 12:29:13 Influenza, split virus, quadrivalent, PF 1 completed Not Available [facility] 04/05/2025 12:29:13 COVID-19, mRNA, LNP-S, PF, 100 mcg/0.5mL dose or 50 mcg/0.25mL dose 1 completed Not Available [facility] 04/05/2025 12:29:13 Influenza, split virus, quadrivalent, PF 2 completed Not Available [facility] 04/05/2025 12:29:13 Influenza, split virus, quadrivalent, PF 3 completed Not Available [facility] 04/05/2025 12:29:13 Influenza, split virus, trivalent, preservative 4 completed Not Available [facility] 04/05/2025 12:29:13 COVID-19, mRNA, LNP-S, PF, 50 mcg/0.5 mL 5 completed Not Available [facility] 04/05/2025 12:29:13 Past Encounters Encounter ID Performer Location Encounter Start Date Encounter Closed Date Diagnosis/Indication Diagnosis SNOMED-CT Code Diagnosis ICD10 Code Diagnosis IMO Codes Diagnosis Note [id number] SUSU FOUNTAIN PA-C [facility] ([facility]) [address] [place] [address] 02/21/2025 13:40:55 03/20/2025 07:29:37 Bilateral lower limb edema 983035712 R60.0 3630277 SPIRONALAC TONE 50MG QDBUMEX 3MG PO BID, ON LINZOLID for skin cellulitis .monitor BMP for cr and electrolyt es. [id number] Chris Parker DO [facility] ([facility]) [address] [place] [address] 02/26/2025 14:48:04 02/28/2025 08:09:20 Type 1 diabetes mellitus 83938584 E10.9 Congestive heart failure 22842489 I50.9 Essential hypertension 07409267 I10 Cirrhosis of liver 83813 007 K74.69 1338418 Chronic constipation 236 229484 K59.09 197508 [id number] Chris Parker DO [facility] ([facility]) [address] [place] [address] 03/22/2025 09:18:02 03/26/2025 11:28:18 Post-discharge follow-up 865802187 Z09 320201 Acute urin constance tract infection 961780870 N39.0 860281 Essential hypertension 07367606 I10 Congestive heart failure 86235839 I50.9 Hyperglyce jaleel due to type 2 diabetes mellitus 9283294555 24475 E11.65 Z79.4 Sarcoidosis 37693338 D86 .9 41065 Health Concerns Section Related Observation LastModified by Organization Detai ls LastModified Time None Recorded Concern Status LastModified by Organization Details LastModified Time None Recorded Payers Encounter Date Sequence Insurance Name Policy Number Policy Pate Covered Member ID Pate Member ID Guarantor Name 03/22/2025 1 [place] Marciano Alonso [id number] Marciano Alonso 03/22/2025 2 [place] Marciano Alonso [id number] Marciano Alonso Notes Date Note Type Note Provider Name and Address Organization Details Recorded Time 03/22/2025 text/html COPDReported by PatientHPI:For associated symptoms, patient reportsobesity. For onset/timing, patient reportsmultiple times per day. For duration, patient reportshas noted for years.ROS as noted in the [facility] ER follow up after hallucinatoins. Chris Parker DO [address] [place] [address], [phone], [facility] 03/25/2025 15:23:56
--- OUTSIDE RECORDS SUMMARY | 2025-04-14 20:39 | XMS_ITS | Continuity of Care Document ---
Author Organization [place] - Aravind Moncada [facility], [place], [facility]3]) Address [address] [place] [address] Assessment No assessment recorded. Plan of Treatment [...] By Organization Details Last Modified Time 02/12/2025 [id number] hospital records reviewed dehydrated from diarrhea; diuretics held no fluid on attempted paracentesis, but lots of fluid in skin of abdomen [email or web address] Not available 02/12/2025 15:44:23 Reason for Referral None Reported. Results Created Date Observation Date Name Description Value Unit Range Abnormal Flag Note LastModifiedBy Organization Detail LastModifiedTime 02/09/2002/08/2025 imagi ng/di agnos tic resul t No observ ation record ed. [email or web address] [facility] [address] [place], [address], 02/12/2025 11:57:54 Result Notes None recorded. Problems Name Problem SNOMED Code Status Onset Date Resolution Date Notes Provider Name and Address Organization Details Recorded Time Essential hypertens ion 67830683 Active 2007 ESSENTIAL HYPERTENS ION; 8 2:16PM by Karla Joseph LPN, Office Visit; Promoted; acuity set as *; Not Available [facility] 3 03:17:47 Allergic rhinitis 51971893 Active 2007 ALLERGIC RHINITIS; 8 2:16PM by Karla Joseph LPN, Office Visit; Promoted; acuity set as *; Not Available [facility] 3 03:17:47 Persisten t insomnia 766954933 Active 2007 PERSISTEN T INSOMNIA; 8 2:16PM by Karla Joseph LPN, Office Visit; Promoted; acuity set as *; Not Available [facility] 3 03:17:52 Fracture of ankle 63169654 Active 2007 Ankle Fracture; 8 2:16PM by Karla Joseph LPN, Office Visit; Promoted; acuity set as *; Not Available [facility] 3 03:17:53 Peptic ulcer 53870949 Active 2007 PEPTIC ULCER; 8 2:16PM by Karla Joseph LPN, Office Visit; Promoted; acuity set as *; Not Available [facility] 3 03:17:53 Type 1 diabetes mellitus 04026011 Active 2007 DIABETES MELLITUS TYPE I; 8 2:16PM by Karla Joseph LPN, Office Visit; Promoted; acuity set as *; Not Available [facility] 3 03:17:58 Constipat ion 97257815 Active 2007 CONSTIPAT ION; 8 2:16PM by Karla Joseph LPN, Office Visit; Promoted; acuity set as *; Not Available [facility] 3 03:17:58 Amputated above knee 536642405 Active 2007 ABOVE KNEE AMPUTATIO N STATUS; 8 2:16PM by Karla Joseph LPN, Office Visit; Promoted; acuity set as *; Not Available [facility] 3 03:17:59 History of depressio n 915101134 Active 2007 DEPRESSIO N, NOS; 8 2:16PM by Karla Joseph LPN, Office Visit; Promoted; acuity set as *; Not Available [facility] 3 03:18:00 Hyperglyc emia due to type 2 diabetes mellitus 39934519660 9109 Active [facility] 13:09:52 Chronic back pain greater than three months duration 57493230007 2 Active 2023 NATHANAEL tavarez, [facility] 4 15:23:19 Blepharit is of right eyelid 58770990640 9103 Active 2024 [facility] 5 15:11:18 Congestiv e heart failure 31063854 Active 2024 NATHANAEL VICTORIA [facility] 5 16:21:48 Acute right otitis media 162663490 Active 2024 [facility] 5 16:28:04 Pain of right shoulder joint 47405939107 768540 Active 2024 NATHANAEL VICTORIA [facility] 5 17:59:42 Hepatospl enomegaly 78667288 Active 2024 NATHANAEL VICTORIA [facility] 5 14:35:12 Thrombocy topenic disorder 132026774 Active 2024 NATHANAEL VICTORIA [facility] 5 14:35:13 Bilateral lower limb edema 769485290 Active 2024 [facility] 5 15:35:25 Acute urinary tract infection 252397427 Active 2024 NATHANAEL VICTORIA [facility] 5 14:32:57 Sarcoidos is 86447908 Active 2024 NATHANAEL VICTORIA [facility] 5 14:33:01 Problem Notes None recorded. Medical Equipment None Reported. Allergies Allergen ID Allergen Name Allergen Category Reaction Reaction Severity Criticality Documentation Date Start Date Code Code System Note Provider Name and Address Organization Details Recorded Time 93939 Product containin g penicilli n (product) medicatio n Not available Not available Not available 11/28/2022 06965 8001 SNOMED Comme nt: Recor ded 09/01 2:16P M by Briseida Joseph LPN, Offic e Visit ; Promo joanne; Shruthi wade ce: *; ; Not Available [facility] 3 02:25:17 59718 Substance with sulfonami de structure and antibacte rial mechanism of action (substanc e) medicatio n Not available Not available Not available 03/22/2025 14857 8003 SNOMED Not Available david [facility] - prod 5 06:48:45 38055 sulfameth oxazole / trimethop rim medicatio n rash Not available [facility] 03/22/20252007 01056 RxNorm Not Available david [facility] - prod 5 06:50:41 Medications [...] Recorded 8 2:43PM by Jory George CMT, [employer] [facility] Summary; Refill Quantity: 0; Not Available [...] Recorded 8 2:43PM by Jory George CMT, [facility] l Summary; Refill Quantity: 0; Not Available [...] Address Organization Details Last Updated DateTime 5 941112. 69 g 112 /min 16 /min 98.2 [degF] 97 % 160/85 mm[Hg] NATHANAEL VICTORIA [facility], [facility] 5 14:34:17 Social History None recorded. Functional Status None recorded. Mental Status None recorded. Family History Nothing Reported. Medical History No medical history recorded. Immunizations Vaccine Type Date Status Note Provider Nam e and Address Organization Details Recorded Time influenza, unspecified formulation 8 completed Not Available [facility] 04/05/2025 12:29:13 Influenza, split virus, trivalent, preservative 0 completed Not Available [facility] 04/05/2025 12:29:13 COVID-19, mRNA, LNP-S, PF, 100 mcg/0.5mL dose or 50 mcg/0.25mL dose 1 completed Not Available [facility] 04/05/2025 12:29:13 COVID-19, mRNA, LNP-S, PF, 100 mcg/0.5mL dose or 50 mcg/0.25mL dose 1 completed Not Available [facility] 04/05/2025 12:29:13 Influenza, split virus, quadrivalent, PF 1 completed Not Available [facility] 04/05/2025 12:29:13 COVID-19, mRNA, LNP-S, PF, 100 mcg/0.5mL dose or 50 mcg/0.25mL dose 1 completed Not Available [facility] 04/05/2025 12:29:13 Influenza, split virus, quadrivalent, PF 2 completed Not Available [facility] 04/05/2025 12:29:13 Influenza, split virus, quadrivalent, PF 3 completed Not Available [facility] 04/05/2025 12:29:13 Influenza, split virus, trivalent, preservative 4 completed Not Available [facility] 04/05/2025 12:29:13 COVID-19, mRNA, LNP-S, PF, 50 mcg/0.5 mL completed [facility] Available [facility] 04/05/2025 12:29:13 Past Encounters Encounter ID Performer Location Encounter Start Date Encounter Closed Date Diagnosis/Indication Diagnosis SNOMED-CT Code Diagnosis ICD10 Code Diagnosis IMO Codes Diagnosis Note [id number] Chris Parker DO [facility] ([facility]) [address] [place] [address] 01/15/2025 12:18:30 01/17/2025 08:49:31 Type 1 diabetes mellitus 06520846 E10.9 Hepatosplenomegaly 12020 000 R16.2 23548 Pneumonia 738651926 J18. 9 [id number] Chris Parker DO [facility] ([facility]3]) [address] [place] [address] 01/18/2025 09:41:48 01/23/2025 16:25:08 [id number] Chris Parker DO [facility] ([facility]) [address] [place] [address] 01/22/2025 15:25:32 01/24/2025 09:26:09 Congestive heart failure 84120636 I50.9 Type 1 brad betes mellitus 46413847 E10.9 Hepatosplenomegaly 16503 000 R16.2 94717 [id number] Chris Parker DO [facility] ([facility]3]) [address] [place] [address] 02/05/2025 14:15:56 02/06/2025 16:50:40 Hepatosplenomegaly 64236131 R16.2 05099 Ascites 554353471 R18.8 973423 Pancytopenia 804809356 D 61.818 68262 [id number] Chris Parker DO [facility] ([facility]) [address] [place] [address] 02/08/2025 13:43:34 02/13/2025 12:53:21 Hyperglycemia due to type 2 diabetes mellitus 4776845628 12114 E11.65 Z79.4 Hepatosplenomegaly 33932 000 R16.2 75767 [id number] Chris Parker DO [facility] ([facility]) [address] [place] [address] 02/12/2025 13:42:12 02/14/2025 09:05:11 Post-discharge follow-up 865258763 Z09 829496 Essential hypertension 29586206 I10 Congestive heart failure 83914173 I50.9 Health Concerns Section Related Observation LastModified by Organization Detai ls LastModified Time None Recorded Concern Status LastModified by Organization Details LastModified Time None Recorded Payers Encounter Date Sequence Insurance Name Policy Number Policy Pate Covered Member ID Pate Member ID Guarantor Name 02/12/2025 1 [place] Marciano Alonso [id number] Marciano Alonso 02/12/2025 2 [place] Marciano Alonso [id number] Marciano Alonso Notes Date Note Type Note Provider Name and Address Organization Details Recorded Time 02/12/2025 text/html COPDReported by PatientHPI:For associated symptoms, patient reportsobesity. For onset/timing, patient reportsmultiple times per day. For duration, patient reportshas noted for years.ROS as noted in the HPI stayed in hospital over the weekend Chris Parker DO [address] [place] [address], [phone], [facility] 02/12/2025 15:44:36
--- OUTSIDE RECORDS SUMMARY | 2025-04-14 20:39 | XMS_ITS | Patient Health Record ---
Author Organization [email or web address] Address [address] [place] [address] Care Team Providers Care Case Work Aide Name Role Phone EDI SAMUELS Unavailable [phone] Kain Marroquin Unavailable [phone] Allergies Allergen (clinical drug ingredient) Drug/Non Drug [...] Description: Age-related physical debility Testing performed at: [address] [place] [address] CLIA ID [id number] Diagnosis Description: Encounter for other preprocedural examination WBC 4.4 4.5-11.0 X10'3 RBC 3.33 4.50-5.90 X10'6 Hgb 9.6 13.5-17.5 G/DL Hct 28.9 41.0-53.0 % MCV 86.8 80.0-100.0 FL MCH 28.8 27.0-31.0 PG MCHC 33.2 31.0-37.0 G/DL Platelet 150 150-400 X10'3 RDW-SD 58.8 35.0-49.0 FL RDW-CV 18.3 12.2-15.6 % MPV 10.4 9.2-12.0 FL Neutro Auto% 68.9 40.0-70.0 % Lymph Auto% 12.0 22.0-44.0 % [place] Auto% 13.3 3.0-7.0 % Eos Auto% 4.6 2.0-4.0 % Baso Auto% 0.5 0.0-1.0 % Imm Gran% .7 .0-.4 % Neutro Abs 3.00 .80-7.70 Absolute Neutrophil Count 3000 Lymph Abs .52 .10-4.10 [place] Abs .58 .20-1.00 Eos Abs .20 .00-.40 Baso Abs .02 .00-.20 Imm Gran Abs .03 .00-.10 NRBC# .00 .00-.20 NRBC% .00 .00-.20 /100 intact WBC's Glucometer WBG Reviewed date:01/03/2025 04:50:43 PM Interpretation: Performing Lab: Notes/Report: Glucometer WBG 128 65-110 MG/DL Asymptomatic~Meter: [id number]~Marketing Analytics Manager: [id number] EDI RATLIFF Testing performed at: [address] [place] [address] CLIA ID [id number] Glucometer WBG Reviewed date:01/03/2025 04:50:43 PM Interpretation: Performing Lab: Notes/Report: Glucometer WBG 118 65-110 MG/DL Asymptomatic~Meter: [id number]~Marketing Analytics Manager: [id number] MARY BATES Testing performed at: [address] [place] [address] CLIA ID [id number] Reason For Referral No Information Medications Medication [...] W/U Status Risk Notes Problem Essential hypertension (96440021) Essential (primary) hypertension (I10) Active confirmed Problem Type II diabetes mellitus without complication (915892260) Type 2 diabetes mellitus without complication, unspecified whether senior living insulin use (E11.9) Active confirmed Problem Heart failure (04383069) Chronic congestive heart failure, unspecified heart failure type (I50.9) Active confirmed Problem COPD - Chronic obstructive pulmonary disease (83229760) Chronic obstructive pulmonary disease, unspecified COPD type (J44.9) Active confirmed Problem Postprocedural states (719949442) H/O transurethral destruction of bladder lesion (Z98.890) Active confirmed Problem Urgent desire to urinate (10005848) Urinary urgency (R39.15) Active confirmed Problem Advanced age (98885356) Advanced age (R54) Active confirmed Problem Urinary frequency (284268681) Urinary frequency (R35.0) Active confirmed Vital Signs [...] [facility] [address] [place] [address] 01/03/2025 EDI SAMUELS [facility], [facility] [address] [place] [address] 11/21/2024 Kain Marroquin Urinary frequency R3 5.0 ; Urinary urgency R39.15 and Weak urinary stream R39.12 [facility] [address] [place] [address] 12/27/2024 Kain Marroquin Pre-op testing Z01.8 18 ; Urinary frequency R35.0 ; Urinary urgency R39.15 and Weak urinary stream R39.12 [facility] [address] [place] [address] 01/22/2025 EDI SAMUELS Urinary frequency R3 5.0 ; H/O transurethral destruction of bladder lesion Z98.890 ; Urinary urgency R39.15 and Weak urinary stream R39.12 [facility] [address] [place] [address] 11/02/2024 Kain Pearashil [facility] [address] [place] [address] 11/22/2024 Kain Pevril [facility] [address] [place] [address] 12/25/2024 Kain Pevril [email or web address] [address] [place] [address] 12/26/2024 EDI SAMUELS Pre-op testing Z01.8 18 ; Advanced age R54 ; Pre-procedure lab exam Z01.812 ; Preop cardiovascular exam Z01.810 ; Essential (primary) hypertension I10 ; Type 2 diabetes mellitus without complication, unspecified whether senior living insulin use E11.9 ; Chronic congestive heart failure, unspecified heart failure type I50.9 and Chronic obstructive pulmonary disease, unspecified COPD type J44.9 DO NOT USE THIS FACILITY [employer] [address] [place], [place] [id number] 01/17/2025 EDI SAMUELS Assessments Encounter Date Diagnosis (ICD Code) Assessment Notes Treatment Notes Treatment Clinical Notes Section Notes 12/27/2024 Urinary frequency (ICD-10 - R35.0) We [...] in need of presurgical labs, however, the delivery driver is unable to take patient to [...] in need of presurgical labs, however, the delivery driver is unable to take patient to [...] and patient satisfied with plan. 01/22/2025 Urinary frequency (ICD-10 - R35.0) This [...] following surgery on the genitourinary system 01/22/2025 H/O transurethral destruction of bladder lesion [...] following surgery on the genitourinary system 12/26/2024 Pre-op testing (ICD-10 - Z01.818) 11/21/2024 [...] at our clinic. 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 Continue flomax BID at this time. For now, and at this time, I am unable to assess if he is in retention or not. He is requesting pereira be placed and I am unable to even attempt this here at our clinic. 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 Continue flomax BID at this time. For now, and at this time, I am unable to assess if he is in retention or not. He is requesting pereira be placed and I am unable to even attempt this here at our clinic. I recommended that his [place] facility can try, but if unsuccessful, they [...] minutes. 12/26/2024 Advanced age (ICD-10 - R54) 01/22/2025 Urinary urgency (ICD-10 - R39.15) This [...] surgery on the genitourinary system 12/27/2024 Urinary urgency (ICD-10 - R39.15) We [...] in need of presurgical labs, however, the delivery driver is unable to take patient to [...] questions, and patient satisfied with plan. 12/27/2024 Weak urinary stream (ICD-10 - R39.12) [...] in need of presurgical labs, however, the delivery driver is unable to take patient to [...] diabetes mellitus without complication, unspecified whether terminal gauger supervisor insulin use (ICD-10 - E11.9) 12/26/2024 Chronic congestive heart failure, unspecified heart failure type (ICD-10 - I50.9) 12/26/2024 Chronic obstructive pulmonary disease, unspecified COPD type (ICD-10 - J44.9) 01/22/2025 Other # Urinary Retention/Frequen cy Order placed for indwelling Pereira catheter (18 [place]) to be inserted at [facility]. Catheter to [...] Basic Metabolic Panel 12/26/2024 Electrocardiogram, 12 Lead Tracing-83124 12/26/2024 Chest PA/Lat--50274 12/26/2024 Next Appt Details Provider Name:Kain Marroquin, 06/25/2025 02:00:00 PM, [address] [place], [address], Insurance Providers Payer Name Payer Address Payer Phone Subscriber Number Group Number Insured Name Patient Relationship to Insured Coverage Start Date Coverage End Date [place] [address] [address] [place], [place] [id number] GavinMarciano Self - patient is the insured [place] [address] [place], [place] [id number] [phone] [id number] PhoenixMarciano bolden Self - patient is the insured Medical (General) History Medical History History ICD Code COPD Sleep apnea Hypertension CHF Type 2 Diabetes GERD glaucoma Surgical History Surgery Date(Month/Year) left leg 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
--- OUTSIDE RECORDS SUMMARY | 2025-04-14 20:40 | XMS_ITS | Continuity of Care Document ---
Author Organization [place] - Aravind Barboza [facility] Mikhail, Chas, [facility] ([facility]) Address [address] [place] [address] Assessment No assessment recorded. Plan of Treatment [...] By Organization Details Last Modified Time 02/26/2025 [id number] Improving volume overload. No ascites on paracentesis. Responding well to bumex and aldactone. GI with concerns for sarcoidosis. They started Linzess for constipation Sugars too high increase tresiba to 90 and aspart to 30. Lab from last week showing hypokalemia. Labs redrawn this morning. [email or web address] Not available 02/27/2025 14:39:12 Reason for Referral None Reported. Results Created Date Observation Date Name Description Value Unit Range Abnormal Flag Note LastModifiedBy Organization Detail LastModifiedTime 02/09/20 25 02/08/2025 imagi ng/di agnos tic resul t No observ ation record ed. [facility] [address] [place], [address], 02/12/2025 11:57:54 Result Notes None recorded. Problems Name Problem SNOMED Code Status Onset Date Resolution Date Notes Provider Name and Address Organization Details Recorded Time Essential hypertens ion 63255104 Active 2007 ESSENTIAL HYPERTENS ION; 8 2:16PM by Karla Joseph LPN, Office Visit; Promoted; acuity set as *; Not Available [facility] 3 03:17:47 Allergic rhinitis 29961434 Active 2007 ALLERGIC RHINITIS; 8 2:16PM by Karla Joseph LPN, Office Visit; Promoted; acuity set as *; Not Available [facility] 3 03:17:47 Persisten t insomnia 302790443 Active 2007 PERSISTEN T INSOMNIA; 8 2:16PM by Karla Joseph LPN, Office Visit; Promoted; acuity set as *; Not Available [facility] 3 03:17:52 Fracture of ankle 09831307 Active 2007 Ankle Fracture; 8 2:16PM by Karla Joseph LPN, Office Visit; Promoted; acuity set as *; Not Available [facility] 3 03:17:53 Peptic ulcer 53610248 Active 2007 PEPTIC ULCER; 8 2:16PM by Karla Joseph LPN, Office Visit; Promoted; acuity set as *; Not Available [facility] 3 03:17:53 Type 1 diabetes mellitus 50860554 Active 2007 DIABETES MELLITUS TYPE I; 8 2:16PM by Karla Joseph LPN, Office Visit; Promoted; acuity set as *; Not Available [facility] 3 03:17:58 Constipat ion 19050676 Active 2007 CONSTIPAT ION; 8 2:16PM by Karla Joseph LPN, Office Visit; Promoted; acuity set as *; Not Available [facility] 3 03:17:58 Amputated above knee 625036202 Active 2007 ABOVE KNEE AMPUTATIO N STATUS; 8 2:16PM by Karla Joseph LPN, Office Visit; Promoted; acuity set as *; Not Available [facility] 3 03:17:59 History of depressio n 434090376 Active 2007 DEPRESSIO N, NOS; 8 2:16PM by Karla Joseph LPN, Office Visit; Promoted; acuity set as *; Not Available [facility] 3 03:18:00 Hyperglyc emia due to type 2 diabetes mellitus 31287882074 9109 Active 2023 NATHANAEL tavarez, [facility] 4 13:09:52 Chronic back pain greater than three months duration 07594143447 2 [facility] 4 15:23:19 Blepharit is of right eyelid 77536474204 9103 Active 2024 NATHANAEL tavarez, [facility] 5 15:11:18 Congestiv e heart failure 29884627 Active 2024 [facility] 5 16:21:48 Acute right otitis media 924723493 Active 2024 [facility] 5 16:28:04 Pain of right shoulder joint 31733663409 679424 Active 2024 [facility] 5 17:59:42 Hepatospl enomegaly 49295613 Active 2024 NATHANAEL VICTORIA [facility] 5 14:35:12 Thrombocy topenic disorder 468437579 Active 2024 NATHANAEL VICTORAI [facility] 5 14:35:13 Bilateral lower limb edema 299475272 Active 2024 [facility]ON [facility] 5 15:35:25 Acute urinary tract infection 539160104 Active 2024 [facility] 5 14:32:57 Sarcoidos is 06276232 Active 2024 NATHANAEL JULIEN [facility] 5 14:33:01 Problem Notes None recorded. Medical Equipment None Reported. Allergies Allergen ID Allergen Name Allergen Category Reaction Reaction Severity Criticality Documentation Date Start Date Code Code System Note Provider Name and Address Organization Details Recorded Time 33868 Product containin g penicilli n (product) medicatio n Not available Not available Not available 11/28/2022 74696 8001 SNOMED Comme nt: Recor ded 09/01 2:16P M by Briseida Joseph LPN, Offic e Visit ; Promo joanne; Shruthi wade ce: *; ; Not Available [facility] 3 02:25:17 89327 Substance with sulfonami de structure and antibacte rial mechanism of action (substanc e) medicatio n Not available Not available Not available 03/22/2025 03572 8003 SNOMED Not Available [employer] - prod 5 06:48:45 25596 sulfameth oxazole / trimethop rim medicatio n rash Not available high 03/22/20252007 34551 RxNorm Not Available [employer] - prod 5 06:50:41 [...] Recorded 8 2:43PM by Jory George CMT, [employer] Summary; Refill Quantity: 0; Not Available Not Available Not Available carbamazep ine 200 mg tablet two times daily 2007 active Recorded 8 2:43PM by Jory George CMT, [employer] Summary; Refill Quantity: 0; Not [...] Recorded 8 2:43PM by Jory George CMT, [employer] [facility] Summary; Refill Quantity: 0; Not Available [...] Recorded 8 2:43PM by Jory George CMT, [facility] l Summary; Refill Quantity: 0; Not Available [...] Address Organization Details Last Updated DateTime 5 782561. 93 g 107 /min 18 /min 97.5 [degF] 95 % 129/53 mm[Hg] NATHANAEL VICTORIA [facility], [facility] 5 16:01:18 Social History None recorded. Functional Status None recorded. Mental Status None recorded. Family History Nothing Reported. Medical History No medical history recorded. Immunizations Vaccine Type Date Status Note Provider Nam e and Address Organization Details Recorded Time influenza, unspecified formulation 8 completed Not Available [facility] 04/05/2025 12:29:13 Influenza, split virus, trivalent, preservative 0 completed Not Available [facility] 04/05/2025 12:29:13 COVID-19, mRNA, LNP-S, PF, 100 mcg/0.5mL dose or 50 mcg/0.25mL dose 1 completed Not Available [facility] 04/05/2025 12:29:13 COVID-19, mRNA, LNP-S, PF, 100 mcg/0.5mL dose or 50 mcg/0.25mL dose 1 completed Not Available [facility] 04/05/2025 12:29:13 Influenza, split virus, quadrivalent, PF 1 completed Not Available [facility] 04/05/2025 12:29:13 COVID-19, mRNA, LNP-S, PF, 100 mcg/0.5mL dose or 50 mcg/0.25mL dose 1 completed Not Available [facility] 04/05/2025 12:29:13 Influenza, split virus, quadrivalent, PF 2 completed Not Available [facility] 04/05/2025 12:29:13 Influenza, split virus, quadrivalent, PF 3 completed Not Available [facility] 04/05/2025 12:29:13 Influenza, split virus, trivalent, preservative 4 completed Not Available [facility] 04/05/2025 12:29:13 COVID-19, mRNA, LNP-S, PF, 50 mcg/0.5 mL 5 completed Not Available [facility] 04/05/2025 12:29:13 Past Encounters Encounter ID Performer Location Encounter Start Date Encounter Closed Date Diagnosis/Indication Diagnosis SNOMED-CT Code Diagnosis ICD10 Code Diagnosis IMO Codes Diagnosis Note [id number] Chris Parker DO [facility] ([facility]) [address] [address] 5 02/05/2025 14:15:56 02/06/2025 16:50:40 Hepatosplenomegaly 57799693 R16.2 84213 Ascites 841066717 R18.8 976968 Pancytopenia 591995957 D 61.818 79933 [id number] Chris Parker DO [facility] ([facility]) [address] [place] [address] 5 02/08/2025 13:43:34 02/13/2025 12:53:21 Hyperglycemia due to type 2 diabetes mellitus 7310439744 25331 E11.65 Z79.4 Hepatosplenomegaly 72272 000 R16.2 43122 [id number] Chris Parker DO [facility] ([facility]) [address] [place] [address] 5 02/12/2025 13:42:12 02/14/2025 09:05:11 Post-discharge follow-up 840392242 Z09 987692 Essential hypertension 45189687 I10 Congestive heart failure 23569726 I50.9 [id number] SUSU FOUNTAIN PA-C [facility] ([facility]) [address] [place] [address] 5 02/21/2025 13:40:55 03/20/2025 07:29:37 Bilateral lower limb edema 014035355 R60.0 5188532 SPIRONALAC TONE 50MG QDBUMEX 3MG PO BID, ON LINZOLID for skin cellulitis .monitor BMP for cr and electrolyt es. [id number] Chris Parker DO [facility] ([facility]) [address] [place] [address] 02/26/2025 14:48:04 02/28/2025 08:09:20 Type 1 diabetes mellitus 58894251 E10.9 Congestive heart failure 41661059 I50.9 Essential hypertension 52992372 I10 Cirrhosis of liver 81064 007 K74.69 5501276 Chronic constipation 236 937662 K59.09 425947 Health Concerns Section Related Observation LastModified by Organization Detai ls LastModified Time None Recorded Concern Status LastModified by Organization Details LastModified Time None Recorded Payers Encounter Date Sequence Insurance Name Policy Number Policy Pate Covered Member ID Pate Member ID Guarantor Name 02/26/2025 1 [place] Marciano Recinos Gavin [id number] Marciano Jorje Alonso 02/26/2025 2 [place] Marciano Jorje Alonso [id number] Marciano Alonso Notes Date Note Type Note Provider Name and Address Organization Details Recorded Time 02/26/2025 text/html COPDReported by PatientHPI:For associated symptoms, patient reportsobesity. For onset/timing, patient reportsmultiple times per day. For duration, patient reportshas noted for years.ROS as noted in the HPI staff wants to discuss weight and sugars. Chris Parker DO [address] [place] [address], [phone], RAS[facility]ED Sloan [facility] 02/27/2025 14:39:25
--- OUTSIDE RECORDS SUMMARY | 2025-04-14 20:40 | XMS_ITS | Continuity of Care Document ---
Author Organization [place] - [facility] Mikhail, Chas, [facility]) Address [address] [facility] [place] [address] Assessment No assessment recorded. Plan of Treatment [...] resul t No observ ation record ed. [id number] [facility] [address] [place], [address], 02/12/2025 11:57:54 Result Notes None recorded. Problems Name Problem SNOMED Code Status Onset Date Resolution Date Notes Provider Name and Address Organization Details Recorded Time Essential hypertens ion 11434246 Active 2007 ESSENTIAL HYPERTENS ION; 8 2:16PM by Karla Joseph LPN, Office Visit; Promoted; acuity set as *; Not Available [facility] 3 03:17:47 Allergic rhinitis 65628847 Active 2007 ALLERGIC RHINITIS; 8 2:16PM by Karla Joseph LPN, Office Visit; Promoted; acuity set as *; Not Available [facility] 3 03:17:47 Persisten t insomnia 020692092 Active 2007 PERSISTEN T INSOMNIA; 8 2:16PM by Karla Joseph LPN, Office Visit; Promoted; acuity set as *; Not Available [facility] 3 03:17:52 Fracture of ankle 40078460 Active 2007 Ankle Fracture; 8 2:16PM by Karla Joseph LPN, Office Visit; Promoted; acuity set as *; Not Available [facility] 3 03:17:53 Peptic ulcer 75811810 Active 2007 PEPTIC ULCER; 8 2:16PM by Karla Joseph LPN, Office Visit; Promoted; acuity set as *; Not Available [facility] 3 03:17:53 Type 1 diabetes mellitus 26659744 Active 2007 DIABETES MELLITUS TYPE I; 8 2:16PM by Karla Joseph LPN, Office Visit; Promoted; acuity set as *; Not Available [facility] 3 03:17:58 Constipat ion 05163507 Active 2007 CONSTIPAT ION; 8 2:16PM by Karla Joseph LPN, Office Visit; Promoted; acuity set as *; Not Available [facility] 3 03:17:58 Amputated above knee 787113655 Active 2007 ABOVE KNEE AMPUTATIO N STATUS; 8 2:16PM by Karla Joseph LPN, Office Visit; Promoted; acuity set as *; Not Available [facility] 3 03:17:59 History of depressio n 591190960 Active 2007 DEPRESSIO N, NOS; 8 2:16PM by Karla Joseph LPN, Office Visit; Promoted; acuity set as *; Not Available [facility] 3 03:18:00 Hyperglyc emia due to type 2 diabetes mellitus 90479783139 9109 Active 2023 NATHANAEL tavarez [facility] 4 13:09:52 Chronic back pain greater than three months duration 44376053133 2 Active 2023 NATHANAEL tavarez [facility] 4 15:23:19 Blepharit is of right eyelid 16640465585 9103 Active 2024 NATHANAEL VICTORIA [facility] 5 15:11:18 Congestiv e heart failure 61180212 Active 2024 NATHANAEL VICTORIA [facility] 5 16:21:48 Acute right otitis media 684510490 Active 2024 NATHANAEL VICTORIA [facility] 5 16:28:04 Pain of right shoulder joint 02123080410 536495 Active 2024 NATHANAEL VICTORIA [facility] 5 17:59:42 Hepatospl enomegaly 64004563 Active 2024 NATHANAEL VICTORIA [facility] 5 14:35:12 Thrombocy topenic disorder 050873907 Active 2024 NATHANAEL VICTORIA [facility] 5 14:35:13 Bilateral lower limb edema 162855731 Active 2024 MARLON HAEFFSARMAD [facility] 5 15:35:25 Acute urinary tract infection 319269974 Active 2024 NATHANAEL VICTORIA [facility] 5 14:32:57 Sarcoidos is 49596411 Active 2024 NATHANAEL VICTORIA [facility] 14:33:01 Problem Notes None recorded. Medical Equipment None Reported. Allergies Allergen ID Allergen Name Allergen Category Reaction Reaction Severity Criticality Documentation Date Start Date Code Code System Note Provider Name and Address Organization Details Recorded Time 06565 Product containin g penicilli n (product) medicatio n Not available Not available Not available 11/28/2022 19118 8001 SNOMED Comme nt: Recor ded 09/01 2:16P M by Briseida Joseph LPN, Offic e Visit ; Domingo rubio; Shruthi wade ce: *; ; Not Available [facility] 3 02:25:17 50266 Substance with sulfonami de structure and antibacte rial mechanism of action (substanc e) medicatio n Not available Not available Not available 03/22/2025 77416 8003 SNOMED Not Available david - External [employer] - prod 5 06:48:45 67459 sulfameth oxazole / trimethop rim medicatio n rash Not available [facility] 03/22/20252007 45473 RxNorm Not Available [place] [employer] - prod 5 06:50:41 [...] Address Organization Details Last Updated DateTime 5 934213. 02 g 98 % 3 L/min 107 /min 18 /min 97.5 [degF] 129/53 mm[Hg] MARLON GRAJEDA [facility] 5 15:33:51 Date Recorded Body weight Heart rate Respiratory rate Body temperature Oxygen saturation Systolic And Diastolic Provider Name and Address Organization Details Last Updated DateTime 5 184417. 93 g 107 /min 18 /min 97.5 [degF] 95 % 129/53 mm[Hg] NATHANAEL VICTORIA [facility] 5 16:01:18 Social History None recorded. Functional Status None recorded. Mental Status None recorded. Family History Nothing Reported. Medical History No medical history recorded. Immunizations Vaccine Type Date Status Note Provider Nam e and Address Organization Details Recorded Time influenza, unspecified formulation 8 completed Not Available [facility] 04/05/2025 12:29:13 Influenza, split virus, trivalent, preservative 0 completed Not Available [facility] 04/05/2025 12:29:13 COVID-19, mRNA, LNP-S, PF, 100 mcg/0.5mL dose or 50 mcg/0.25mL dose 1 completed Not Available [facility] 04/05/2025 12:29:13 COVID-19, mRNA, LNP-S, PF, 100 mcg/0.5mL dose or 50 mcg/0.25mL dose 1 completed Not Available [facility] 04/05/2025 12:29:13 Influenza, split virus, quadrivalent, PF 1 completed Not Available [facility] 04/05/2025 12:29:13 COVID-19, mRNA, LNP-S, PF, 100 mcg/0.5mL dose or 50 mcg/0.25mL dose 1 completed Not Available [facility] 04/05/2025 12:29:13 Influenza, split virus, quadrivalent, PF 2 completed Not Available [facility] 04/05/2025 12:29:13 Influenza, split virus, quadrivalent, PF 3 completed Not Available [facility] 04/05/2025 12:29:13 Influenza, split virus, trivalent, preservative 4 completed Not Available [facility] 04/05/2025 12:29:13 COVID-19, mRNA, LNP-S, PF, 50 mcg/0.5 mL 5 completed Not Available [facility] 04/05/2025 12:29:13 Past Encounters Encounter ID Performer Location Encounter Start Date Encounter Closed Date Diagnosis/Indication Diagnosis SNOMED-CT Code Diagnosis ICD10 Code Diagnosis IMO Codes Diagnosis Note [id number] Chris Parker DO [facility] ([facility]) [address] [place] [address] 5 01/22/2025 15:25:32 01/24/2025 09:26:09 Congestive heart failure 59802656 I50.9 Type 1 brad betes mellitus 57608104 E10.9 Hepatosplenomegaly 14280 000 R16.2 39481 [id number] Chris Parker DO [facility] ([facility]) [address] [place], [place] [address] 02/05/2025 14:15:56 02/06/2025 16:50:40 Hepatosplenomegaly 87525023 R16.2 53108 Ascites 315330723 R18.8 [id number] Pancytopenia 928674906 D 61.818 67007 [id number] Chris Parker DO [facility] ([facility]) [address] [place] [phone] 02/08/2025 13:43:34 02/13/2025 12:53:21 Hyperglycemia due to type 2 diabetes mellitus 4941408687 78659 E11.65 Z79.4 Hepatosplenomegaly 76522 000 R16.2 27957 [id number] Chris Parker DO [facility] ([facility]) [address] [place] [phone] 5 02/12/2025 13:42:12 02/14/2025 09:05:11 Post-discharge follow-up [id number] Z09 612062 Essential hypertension 87021458 I10 Congestive heart failure 35985405 I50.9 [id number] SUSU FOUNTAIN PA-C [facility] ([facility]) [address] [place] [address] [place] [address] 02/21/2025 13:40:55 03/20/2025 07:29:37 Bilateral lower limb edema 801067021 R60.0 [id number] SPIRONALAC TONE 50MG QDBUMEX 3MG PO BID, [...] 02/21/2025 1 [place] Marciano Alonso [id number] Marciano Alonso 02/21/2025 2 [place]ICA[place] Marciano Alonso [id number] Marciano Alonso Notes Date Note Type Note Provider Name and Address Organization Details Recorded Time 02/21/2025 text/html EdemaReported by PatientHPIFor quality, patient reportspainfulbut reportslegs swell equallyandimproves overnight. For location, patient reportsble. For severity, patient reportsmoderate. For duration, patient reportsconstant. Pt with extreme edema from legs up to abdomen. On bumex and sprinolactone.Diabetic. Chris Parker DO [address] [place] [address], [phone], [facility] 03/19/2025 15:13:55 02/26/2025 text/html COPDReported by PatientHPI:For associated symptoms, patient reportsobesity. For onset/timing, patient reportsmultiple times per day. For duration, patient reportshas noted for years.ROS as noted in the HPI staff wants to discuss weight and sugars. Chris Parker DO [address] [place] [address], [phone], [facility] 02/27/2025 14:39:25
--- OUTSIDE RECORDS SUMMARY | 2025-04-14 20:40 | XMS_ITS | Data Portability ---
Author Organization [place] - Aravind Moncada [facility], [facility] Address [address] [place] [phone] Assessment No assessment recorded. Plan of Treatment [...] By Organization Details Last Modified Time 02/26/2025 [id number] Improving volume overload. No ascites on paracentesis. Responding well to bumex and aldactone. GI with concerns for sarcoidosis. They started Linzess for constipation Sugars too high increase tresiba to 90 and aspart to 30. Lab from last week showing hypokalemia. Labs redrawn this morning. [email or web address] Not available 02/27/2025 14:39:12 03/22/2025 [id number] Admitted with sepsis and volume overload. Evaluated by hematology and not able to use steroids with volume issues. He is planning to go to [place] to hear options for for granulomatous disease affecting his liver. Sleep study soon. Not available 03/25/2025 15:23:44 04/05/2025 [id number] Sugars too high, increase tresiba to 120 and aspart to 60 units. [email or web address] Not available 04/05/2025 15:03:14 Reason for Referral None Reported. Results Created Date Observation Date Name Description Value Unit Range Abnormal Flag Note LastModifiedBy Organization Detail LastModifiedTime 02/09/2002/08/2025 imagi ng/di agnos tic resul t No observ ation record ed. [email or web address] [facility] [address] [place], [address], 02/12/2025 11:57:54 Result Notes None recorded. Problems Name Problem SNOMED Code Status Onset Date Resolution Date Notes Provider Name and Address Organization Details Recorded Time Essential hypertens ion 12679387 Active 2007 ESSENTIAL HYPERTENS ION; 8 2:16PM by Karla Joseph LPN, Office Visit; Promoted; acuity set as *; Not Available [facility] 3 03:17:47 Allergic rhinitis 55983578 Active 2007 ALLERGIC RHINITIS; 8 2:16PM by Karla Joseph LPN, Office Visit; Promoted; acuity set as *; Not Available [facility] 3 03:17:47 Persisten t insomnia 849590927 Active 2007 PERSISTEN T INSOMNIA; 8 2:16PM by Karla Joseph LPN, Office Visit; Promoted; acuity set as *; Not Available [facility] 3 03:17:52 Fracture of ankle 03883242 Active 2007 Ankle Fracture; 8 2:16PM by Karla Joseph LPN, Office Visit; Promoted; acuity set as *; Not Available [facility] 3 03:17:53 Peptic ulcer 42443138 Active 2007 PEPTIC ULCER; 8 2:16PM by Karla Joseph LPN, Office Visit; Promoted; acuity set as *; Not Available [facility] 3 03:17:53 Type 1 diabetes mellitus 91344016 Active 2007 DIABETES MELLITUS TYPE I; 8 2:16PM by Karla Joseph LPN, Office Visit; Promoted; acuity set as *; Not Available [facility] 3 03:17:58 Constipat ion 74546453 Active 2007 CONSTIPAT ION; 8 2:16PM by Karla Joseph LPN, Office Visit; Promoted; acuity set as *; Not Available [facility] 3 03:17:58 Amputated above knee 728488594 Active 2007 ABOVE KNEE AMPUTATIO N STATUS; 8 2:16PM by Karla Joseph LPN, Office Visit; Promoted; acuity set as *; Not Available [facility] 3 03:17:59 History of depressio n 242222937 Active 2007 DEPRESSIO N, NOS; 8 2:16PM by Karla Joseph LPN, Office Visit; Promoted; acuity set as *; Not Available [facility] 3 03:18:00 Hyperglyc emia due to type 2 diabetes mellitus 68212786091 9109 Active 2023 NATHANAEL tavarez, [facility] 4 13:09:52 Chronic back pain greater than three months duration 13790827959 2 Active 2023 NATHANAEL tavarez, [facility] 4 15:23:19 Blepharit is of right eyelid 83243623286 9103 Active 2024 NATHANAEL VICTORIA [facility] 5 15:11:18 Congestiv e heart failure 09195611 Active 20[facility] 16:21:48 Acute right otitis media 117914043 Active 2024 NATHANAEL tavarez, [facility] 5 16:28:04 Pain of right shoulder joint 87302253761 840126 Active 2024 NATHANAEL VICTORIA [facility] 5 17:59:42 Hepatospl enomegaly 21723092 Active 2024 [facility] 5 14:35:12 Thrombocy topenic disorder 723208746 Active 2024 NATHANAEL tavarez [facility] 5 14:35:13 Bilateral lower limb edema 124381902 Active 2024 MARLON GRAJEDA [facility] 5 15:35:25 Acute urinary tract infection 469517028 Active 2024 NATHANAEL VICTORIA [facility] 5 14:32:57 Sarcoidos is 71358456 Active 2024 NATHANAEL VICTORIA [facility] 14:33:01 Problem Notes None recorded. Medical Equipment None Reported. Allergies Allergen ID Allergen Name Allergen Category Reaction Reaction Severity Criticality Documentation Date Start Date Code Code System Note Provider Name and Address Organization Details Recorded Time 87328 Product containin g penicilli n (product) medicatio n Not available Not available Not available 11/28/2022 65147 8001 SNOMED Comme nt: Recor ded 09/01 2:16P M by Briseida Joseph LPN, Offic e Visit ; Promo joanne; Signi mauro ce: *; ; Not Available [facility] 3 02:25:17 68060 Substance with sulfonami de structure and antibacte rial mechanism of action (substanc e) medicatio n Not available Not available Not available 03/22/2025 12608 8003 SNOMED Not Available david - External Data Service - prod 5 06:48:45 53118 sulfameth oxazole / trimethop rim medicatio n rash Not available high 03/22/20252007 60945 RxNorm Not Available david - External Data [...] Recorded 8 2:43PM by Jory George CMT, HistorEnglishUp l Summary; Refill Quantity: 0; Not Available Not Available Not Available carbamazep ine 200 mg tablet two times daily 2007 active Recorded 8 2:43PM by Jory George CMT, SpectraLinear l Summary; Refill Quantity: 0; Not Available [...] pain active 0; Recorded 8 2:23PM by Karal Joseph LPN, Office Visit; Not Available Not Available Not Available Vitals Date Recorded Body weight Oxygen saturation Inhaled oxygen flow rate Heart rate Respiratory rate Body temperature Systolic And Diastolic Provider Name and Address Organization Details Last Updated DateTime 5 639533. 02 g 98 % 3 L/min 107 /min 18 /min 97.5 [degF] 129/53 mm[Hg] MARLON GRAJEDA [facility] 5 15:33:51 Date Recorded Body weight Heart rate Respiratory rate Body temperature Oxygen saturation Systolic And Diastolic Provider Name and Address Organization Details Last Updated DateTime 5 204793. 93 g 107 /min 18 /min 97.5 [degF] 95 % 129/53 mm[Hg] NATHANAEL [facility] 5 16:01:18 Date Recorded Body weight Heart rate Respiratory rate Body temperature Oxygen saturation Systolic And Diastolic Provider Name and Address Organization Details Last Updated DateTime 5 717534. 01 g 76 /min 15 /min 98.1 [degF] 98 % 102/58 mm[Hg] NATHANAEL [facility] 5 14:29:59 Date Recorded Body weight Heart rate Respiratory rate Body temperature Oxygen saturation Systolic And Diastolic Provider Name and Address Organization Details Last Updated DateTime 5 155096. 64 g 65 /min 18 /min 96.2 [degF] 100 % 123/67 mm[Hg] NATHANAEL VICTORIA [facility], [facility] 5 15:00:57 Social History None [...] ICD10 Code Diagnosis IMO Codes Diagnosis Note [id number] Chris Parker [facility] [address] [place], [place] [address] 02/29/2024 08:37:45 02/29/2024 15:46:46 Chronic obstructive pulmonary disease 84002066 J44.9 Amputated above knee 299 943670 Z89.619 left Essential hypertension 33773054 I10 Hyperglyce jaleel due to type 2 diabetes mellitus 9622428249 54049 E11.65 [id number] Chris Parker [facility] ([facility]) [address] [place], [place] [address] 03/14/2024 13:21:57 03/14/2024 16:53:47 Candidiasis of skin 14579458 B37.2 [id number] Chris Parker [facility]) [address] [place], [place] [address] 04/11/2024 08:16:14 04/17/2024 11:22:39 History of depression 120618247 Z86.59 Amputated above knee 299 138901 Z89.619 left Hyperglyce jaleel due to type 2 diabetes mellitus 1946679923 77207 E11.65 [id number] Chris Parker [facility] ([facility]) [address] [place], [place] [address] 05/08/2024 14:42:28 05/09/2024 14:13:27 History of depression 757425177 Z86.59 Hyperglyce jaleel due to type 2 diabetes mellitus 8750367805 94532 E11.65 Amputated above knee 299 672033 Z89.619 left [id number] Chris Parker [facility] ([facility]) [address] [place] [address] 05/23/2024 13:28:32 05/25/2024 13:20:49 Hyperglycemia due to type 2 diabetes mellitus 4314300193 25133 E11.65 Blephariti s of right eyelid 4294127624 48243 H01.006 [id number] Chris Parker [facility] ([facility]) [address] [place] [address] 06/05/2024 14:01:27 06/07/2024 12:06:41 History of depression 177285299 Z86.59 Congestive heart failure 52486937 I50.9 Amputated above knee 299 092024 Z89.619 left Essential hypertension 18853152 I10 Hyperglyce jaleel due to type 2 diabetes mellitus 2137890354 94330 E11.65 Persistent insomnia 1919 80345 G47.00 [id number] Chris Parker DO [facility] ([facility]) [address] [place], [place] [address] 06/15/2024 14:42:28 06/22/2024 06:57:36 Persistent insomnia 017694981 G47.00 Hyperglyce jaleel due to type 2 diabetes mellitus 3037589636 E11.65 Congestive heart failure 81770015 I50.9 Visual disturbance 85648 001 H53.9 Viral syndrome 580686153 B34.9 [id number] Chris Parker DO [facility]) [address] [place], [place] [address] 06/19/2024 14:32:25 06/27/2024 07:52:53 Congestive heart failure 78189877 I50.9 [id number] Chris Parker DO [facility] ([facility]) [address] [place] [address] 07/17/2024 14:49:03 07/19/2024 06:58:14 History of depression 500778258 Z86.59 Persistent insomnia 1918 09703 G47.00 Impacted c erumen in right ear 8787015286 383082 H61.21 Middle ear effusion 1004 671631 H74.8X9 left [id number] Chris Parker DO [facility] ([facility]) [address] [place] [address] 2024 13:12:54 07/25/2024 07:05:48 Acute right otitis media 612924259 H66.91 Dysuria 10983276 R30.0 [id number] Chris Parker DO [facility] ([facility]) [address] [place] [address] 08/14/2024 13:21:30 08/23/2024 07:50:54 Hyperglycemia due to type 2 diabetes mellitus 1872512400 19109 E11.65 Congestive heart failure 92697047 I50.9 Amputated above knee 299 151898 Z89.619 left [id number] Chris Parker DO [facility] ([facility]) [address] [place] [address] 5 09/04/2024 08:10:50 09/10/2024 09:07:59 Chronic pain of right upper limb 6372930205 5383266 M25.511 G89.29 826632 [id number] Chris Parker DO [facility] ([facility]) [address] [place] [address] 5 10/09/2024 10:23:33 10/17/2024 15:32:18 History of depression 928185620 Z86.59 Hyperglyce jaleel due to type 2 diabetes mellitus 6724403616 19109 E11.65 Congestive heart failure 59260650 I50.9 Chronic ba ck pain greater than three months duration 6226937502 02 G89.29 Thrombocyt openic disorder 527711204 D69.6 17093 [id number] Chris Parker [facility] ([facility]) [address] [place] [address] 5 10/30/2024 14:46:31 11/01/2024 11:47:18 History of depression 775012216 Z86.59 Hyperglyce jaleel due to type 2 diabetes mellitus 6295820064 19109 E11.65 Congestive heart failure 77307743 I50.9 [id number] Chris Parker DO [facility] ([facility]) [address] [place] [address] 5 11/02/2024 08:05:32 11/07/2024 08:24:49 Pain of right shoulder joint 8056123367 3453119 M25.511 430743 [id number] Chris Parker [facility] ([facility]) [address] [place] [address] 5 11/23/2024 11:52:48 12/06/2024 08:38:17 Pain of right shoulder joint 2947591539 2433701 M25.511 863586 Supraspinatus tear 30762 6004 M75.101 02167704 Rupture of infraspinatus tendon 908915976 S46.811A 21859805 Rupture williamson bscapularis tendon 362998220 S46.811A 7440492721 Hyperglyce jaleel due to type 2 diabetes mellitus 0735539116 91971 E11.65 Z79.4 49959280 [id number] Chris Parker DO [facility] ([facility]) [address] [place] [address] 11/27/2024 14:15:45 12/06/2024 09:32:58 Thrombocytopenic disorder 433371644 D69.6 15937 Hepatosplenomegaly 33201 000 R16.2 32441 [id number] Chris Parker DO [facility] ([facility]) [address] [place], [place] [address] 12/14/2024 12:31:55 12/27/2024 18:42:02 [id number] Chris Parker DO [facility] ([facility]) [address] [place], [place] [address] 01/11/2025 12:12:21 01/16/2025 10:56:12 Hyperglycemia due to type 2 diabetes mellitus 8850618166 94356 E11.65 Z79.4 [id number] Chris Parker DO [facility] ([facility]) [address] [place], [place] [address] 01/15/2025 12:18:30 01/17/2025 08:49:31 Type 1 diabetes mellitus 90286617 E10.9 Hepatosplenomegaly 67027 000 R16.2 69833 Pneumonia 461582731 J18. 9 1211850629 [id number] Chris Parker DO [facility] ([facility]) [address] [place] [address] 5 01/18/2025 09:41:48 01/23/2025 16:25:08 [id number] Chris Parker [facility]) [address] [place] [address] 5 01/22/2025 15:25:32 01/24/2025 09:26:09 Congestive heart failure 29606615 I50.9 Type 1 brad betes mellitus 21322134 E10.9 Hepatosplenomegaly 23161 000 R16.2 05788 [id number] Chris Parker DO [facility] ([facility]) [address] [place] [address] 5 02/05/2025 14:15:56 02/06/2025 16:50:40 Hepatosplenomegaly 31467899 R16.2 79395 Ascites 956498110 R18.8 363130 Pancytopenia 135581079 D 61.818 25829 [id number] Chris Parker DO [facility] ([facility]) [address] [place] [address] 5 02/08/2025 13:43:34 02/13/2025 12:53:21 Hyperglycemia due to type 2 diabetes mellitus 1777915113 93172 E11.65 Z79.4 Hepatosplenomegaly 72547 000 R16.2 24125 [id number] Chris Parker DO [facility] ([facility]) [address] [place] [address] 5 02/12/2025 13:42:12 02/14/2025 09:05:11 Post-discharge follow-up 562675130 Z09 748929 Essential hypertension 04087738 I10 Congestive heart failure 42369210 I50.9 [id number] SUSU FOUNTAIN PA-C [facility] ([facility]) [address] [place] [address] 5 02/21/2025 13:40:55 03/20/2025 07:29:37 Bilateral lower limb edema 331748083 R60.0 9429282 SPIRONALAC TONE 50MG QDBUMEX 3MG PO BID, ON LINZOLID for skin cellulitis .monitor BMP for cr and electrolyt es. [id number] Chris Parker DO [facility] ([facility]) [address] [place] [address] 5 02/26/2025 14:48:04 02/28/2025 08:09:20 Type 1 diabetes mellitus 80422985 E10.9 Congestive heart failure 37753793 I50.9 Essential hypertension 19607324 I10 Cirrhosis of liver 33623 007 K74.69 3847143 Chronic constipation 236 075820 K59.09 352965 [id number] Chris Parker DO [facility] ([facility]) [address] [place] [address] 03/22/2025 09:18:02 03/26/2025 11:28:18 Post-discharge follow-up 201420718 Z09 691982 Acute urin constance tract infection 642731430 N39.0 550402 Essential hypertension 91769059 I10 Congestive heart failure 22397446 I50.9 Hyperglyce jaleel due to type 2 diabetes mellitus 5196701283 45316 E11.65 Z79.4 Sarcoidosis 56271245 D86 .9 09593 [id number] Chris Parker DO [facility] ([facility]) [address] [place] [address] 04/05/2025 12:29:02 04/12/2025 12:50:40 Type 1 diabetes mellitus 73557565 E10.9 Health Concerns Section Related Observation LastModified by Organization Detai ls LastModified Time None Recorded Concern Status LastModified by Organization Details LastModified Time None Recorded Advance Directives Directive None Recorded Payers Insurance Date Sequence Insurance Name Policy Number Policy Pate Covered Member ID Pate Member ID Guarantor Name 02/29/2024 1 *SELF PAY* Ti lizetty L [place] 04/05/2025 [place] - [facility] (MEDICARE) Marciano L [place] [id number] Marciano L [place] 04/05/2025 [place] [facility] Marciano L Gavin [id number] Marciano L [place] 04/05/2025 2 [place] Marciano L Gavin [id number] Marciano L [place] 04/05/2025 1 [place] B[place] [facility] Marciano L [place] [id number] Marciano L Gavin Notes Date Note Type Note Provider Name and Address Organization Details Recorded Time 02/21/2025 text/html EdemaReported by PatientHPIFor quality, patient reportspainfulbut reportslegs swell equallyandimproves overnight. For location, patient reportsble. For severity, patient reportsmoderate. For duration, patient reportsconstant. Pt with extreme edema from legs up to abdomen. On bumex and sprinolactone.Diabetic. Chris Parker DO [address] [place] [address], [phone], [facility] 03/19/2025 15:13:55 02/26/2025 text/html COPDReported by PatientHPI:For associated symptoms, patient reportsobesity. For onset/timing, patient reportsmultiple times per day. For duration, patient reportshas noted for years.ROS as noted in the HPI staff wants to discuss weight and sugars. Chris ParkerDO [address] [place] [address], [phone], [facility] 02/27/2025 14:39:25 03/22/2025 text/html COPDReported by PatientHPI:For associated symptoms, patient reportsobesity. For onset/timing, patient reportsmultiple times per day. For duration, patient reportshas noted for years.ROS as noted in the HPI ER follow up after hallucinatoins. Chris ParkerDO [address] [place] [address], [phone], [facility] 03/25/2025 15:23:56 04/05/2025 text/html COPDReported by PatientHPI:For associated symptoms, patient reportsobesity. For onset/timing, patient reportsmultiple times per day. For duration, patient reportshas noted for years.ROS as noted in the HPI staff reports sugars are too high. Chris ParkerDO [address] [place] [address], [phone], [facility] 04/11/2025 18:06:37
[2025-04-14 21:18] VITALS: BP 106/55; PULSE 88; O2SAT 98
[2025-04-14 21:33] VITALS: BP 109/58; PULSE 88; O2SAT 98
== END 2025-04-14 21:36 | disposition home or self-care (01) ==
PROVIDERS: Emergency Provider Emergency Medicine; PCP Internal Medicine
DX: I95.89 Other hypotension (principal); Z79.01 Long term (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 of anticoagulants; Z79.4 Long term (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 of insulin; E78.5 Hyperlipidemia, unspecified; J44.9 Chronic obstructive pulmonary disease, unspecified; E11.9 Type 2 diabetes mellitus without complications; I11.0 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 heart disease with heart failure; I50.9 Heart failure, unspecified
CPT/HCPCS: 93005; 99283

== ENCOUNTER 2025-04-21 20:04 | Emergency (ER) | payer MEDICARE, MEDICAID, SELFPAY ==
--- OUTSIDE RECORDS SUMMARY | 2024-01-19 11:00 | XMS_ITS ---
Author Organization [employer] Address [address] [place] [address] Care Team Providers Care Dispute Resolution Specialist Name Role Phone EDI DILL Unavailable [phone] GAMA GARCIA Unavailable [phone] REASON FOR VISIT Cx by pts sister/ may call back to r/s-- Retention/VT Encounters Encounter Location Date Provider Diagnosis [employer], [employer] [address] [place] [address] 01/19/2024 GAMA GARCIA Plan Of Treatment Next Appt Details Provider Name:Kain Marroquin, 06/25/2025 02:00:00 PM, [address] [place], [address], Progress Notes * AMYMarciano LDOB: 4 (59 yo M)Acc No.[id number]:01/19/2024 Patient: Marciano HEDRICK Provider: SUMA Chaparro :1965 A ge:58 Y S ex:Male Date:01/19/2024 Address:[address], [place] Subjective: * Chief Complaints: * 1 . Cx by pts sister/ may call back to r/s-- Retention/VT. * Medical History: Objective: * Vitals: Assessment: Plan: * Treatment: * Billing Information: * Visit Code: * Procedure Codes: * Electronic signature of GAMA GARCIA APRN on 04/21/2025 at 08:09 PM RECEIVING BARN CUSTODIAN Sign off status: Pending * Provider: Tram Garcia APRN-PROVISIONING ANALYST Date: 0 01/19/2024 Generated for Miles silva/Poonam/Emiliano on: 1 06/22/2024 08:09 PM RECEIVING BARN CUSTODIAN
--- OUTSIDE RECORDS SUMMARY | 2024-01-24 08:30 | XMS_ITS ---
Author Organization [employer], [employer] Address [address] [facility] [place] [address] Care Team Providers Care Collection Correspondent Name Role Phone EDI DILL Unavailable [phone] PHILLIP RAZO Unavailable [phone] REASON FOR VISIT retention/VT Encounters Encounter Location Date Provider Diagnosis [facility] [address] [facility] [place] [address] 01/24/2024 PHILLIP RAZO Plan Of Treatment Next Appt Details Provider Name:Kain Marroquin, 06/25/2025 02:00:00 PM, [address] [place], [address], Progress Notes * Marciano REYES LDOB: 4 (59 yo M)Acc No.[id number]:01/24/2024 Patient: Marciano HEDRICK Provider: She Razo APRN :1965 A ge:58 Y S ex:Male Date:01/24/2024 Address:[address], [place] Subjective: * Chief Complaints: * 1 . retention/VT. * Medical History: Objective: * Vitals: Assessment: Plan: * Treatment: * Billing Information: * Visit Code: * Procedure Codes: * Electronic signature of LORE RAZO APRN on 04/21/2025 at 08:12 PM LINE MAINTENANCE SUPERVISOR Sign off status: Pending * Provider: She Razo APRN Date: 0 01/24/2024 Generated for Miles silva/Poonam/Emiliano on: 1 06/22/2024 08:12 PM LINE MAINTENANCE SUPERVISOR
--- OUTSIDE RECORDS SUMMARY | 2025-01-03 | XMS_ITS ---
Author Organization [facility], [facility] Address [address] [facility] [place] [address] Care Team Providers Care Physician/Allergy/Immunology Name Role Phone FUENTES EDI Irene [phone] REASON FOR VISIT Cystoscopy @ MAIN OR (Charity Lift) Encounters Encounter Location Date Provider Diagnosis [facility], [facility] [address] [place] [address] 01/03/2025 EDI DILL Plan Of Treatment Next Appt Details Provider Name:Kain Marroquin, 06/25/2025 02:00:00 PM, [address] [place], [address], Progress Notes * Marciano REYES LDOB: 4 (59 yo M)Acc No.[id number]:01/03/2025 Patient: Marciano HEDRICK Provider: Tram DILL MD :1965 A ge:59 Y S ex:Male Date:01/03/2025 Address:[address], [place] * Billing Information: * Visit Code: * Procedure Codes: * Electronic signature of AUST IN MD FUENTES on 04/21/2025 at 08:07 PM CHIMNEY SWEEPER Sign off status: Pending * Provider: Tram DILL MD Date: 0 01/03/2025 Generated for Miles silva/Poonam/eTransmitting on: 1 06/22/2024 08:07 PM CHIMNEY SWEEPER
[2025-04-21 19:58] VITALS: BP 91/75; PULSE 94; RESP 18; TEMP 37.3; O2SAT 98; BMI 39.9
[2025-04-21 20:04] VITALS: BP 91/75; PULSE 92; O2SAT 98
--- NOTE | 2025-04-21 20:04 | XRR_ITS ---
PROCEDURE INFORMATION: Exam: XR Chest Exam date and time: 04/21/2025 8:07 PM Age: 59 years old Clinical indication: Shortness of breath and other: General weakness; Prior surgery; Surgery date: 6+ months; Surgery type: Left shoulder; EMS arrival from [facility] for general weakness and SOB. TECHNIQUE: Imaging protocol: Radiologic exam of the chest. Views: 1 view. COMPARISON: CR XR chest 1V portable [id number] 04/10/2025 5:26 PM FINDINGS: Lungs: There is dense consolidative appearance in the lingula left lower lobe multilobar pneumonia suspected there is possible left-sided Pleural spaces: Small to moderate-sized pleural effusion Heart/Mediastinum: Unremarkable. No cardiomegaly. Bones/joints: Hard bony structures stable XR/XR chest 1V portable [id number] IMPRESSION: Findings of consolidation left upper lobe and left lower lobe multilobar pneumonia suspected. Correlate and follow-up as indicated Suspicion of small left-sided pleural effusion
--- NOTE | 2025-04-21 20:05 | ECG_ITS ---
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: : 1965 Requested By: Daljit Card Order Number: [id number] Reading MD: JARRETT DESAI Measurements Intervals [facility] Rate: 96 P: 0 MD: 0 QRS: -80 QRSD: 151 T: 180 QT: 357 QTc: 451 Interpretive Statements ATRIAL FIBRILLATION WITH ABERRANT CONDUCTION OR VENTRICULAR PREMATURE COMPLEXES INTRAVENTRICULAR CONDUCTION DELAY [130+ ms QRS DURATION] INFERIOR MYOCARDIAL INFARCTION , PROBABLY OLD [40+ ms Q WAVE AND/OR ST/T ABNORMALITY IN II/aVF] ANTEROLATERAL MYOCARDIAL INFARCTION , OF INDETERMINATE AGE [40+ ms Q WAVE IN I/aVL/V3-V6] MARKED ST DEPRESSION, CONSIDER SUBENDOCARDIAL INJURY [0.2+ mV ST DEPRESSION] ACUTE AK Compared to ECG 04/14/2025 19:55:44 Electronically Signed On 04-24-2025 12:05:04 PROCESS CONTROL PROGRAMMER by JARRETT DESAI [email or web address]
--- OUTSIDE RECORDS SUMMARY | 2025-04-21 20:07 | XMS_ITS | Encounter Summary ---
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
--- OUTSIDE RECORDS SUMMARY | 2025-04-21 20:07 | XMS_ITS | Encounter Summary ---
Author Organization [facility] Address [address] [place] [address] Care Team Providers Care Web Content Specialist Name Role Phone Cuba Solano MD Primary Care Provider [phone] Encounter Details Date Type Department Care Team (Latest Contact Info) Description 09/06/2006 [facility] 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
--- OUTSIDE RECORDS SUMMARY | 2025-04-21 20:07 | XMS_ITS | Encounter Summary ---
Author Organization [facility] Address [address] [place] [address] Care Team Providers Care Supervisor Porcelain Department Name Role Phone Cuba Solano MD Primary Care Provider +1 [phone] Encounter Details Date Type Department Care Team (Latest Contact Info) Description 06/10/2007 Outpatient Historical [facility] [address] [place] [address] Keyona Mccloud, LUCIEN NO ADDRESS ON FILE DM w/o Complication Type II, Uncontrolled Social History Tobacco Use Types Packs/Day Years Used Date Smoking Tobacco: Never Assessed Sex and Gender Information Value Date Recorded Sex Assigned at Not on file 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
--- OUTSIDE RECORDS SUMMARY | 2025-04-21 20:07 | XMS_ITS | Encounter Summary ---
Author Organization [facility] Address [address] [place] [address] Care Team Providers Care Ross Carrier Driver Name Role Phone Cuab Solano MD Primary Care Provider +1 [phone] Encounter Details Date Type Department Care Team (Late st Contact Info) Description 03/01/2008 Outpatient Historical [facility] [address] [place] [address] Kvng Kilpatrick MD NO ADDRESS ON FILE Social History Tobacco Use Types Packs/Day Years Used Date Smoking Tobacco: Never Assessed Cigarettes Smokeless Tobacco: Current Chew Alcohol Use Standard Drinks/Week Comments No 0 (1 standard drink = 0.6 oz pur e alcohol) Sex and Gender Information Value Date Recorded Sex Assigned at Not on file 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
--- OUTSIDE RECORDS SUMMARY | 2025-04-21 20:07 | XMS_ITS | Encounter Summary ---
Author Organization [facility] Address [address] [place] [address] Care Team Providers Care Music Department Chair Name Role Phone Cuba Solano MD Primary Care Provider +1 [phone] Encounter Details Date Type Department Care Team (Late st Contact Info) Description 08/05/[address] 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
--- OUTSIDE RECORDS SUMMARY | 2025-04-21 20:07 | XMS_ITS | Encounter Summary ---
Author Organization [facility] Address [address] [place] [address] Care Team Providers Care Fish Butcher Name Role Phone Cuba Solano MD Primary Care Provider +1 [phone] Encounter Details Date Type Department Care Team (Late st Contact Info) Description 06/20/2007 Outpatient Historical [facility] Family Medicine [place] 4[address] [address] Keyona Mccloud, PEN AND PENCIL REPAIRER NO ADDRESS ON FILE Social History Tobacco Use Types Packs/Day Years Used Date Smoking Tobacco: Never Assessed Sex and Gender Information Value Date Recorded Sex Assigned at Not on file Legal Sex Male 2:49 AM RETAIL ANALYST Gender Identity Not on file Sexual Orientation Not on file documented as of this encounter Plan of Treatment Not on file documented as of this encounter Visit Diagnoses Not on filedocumented in this encounter Care Teams Fish Butcher Relationship Specialty Start Date End Date Cuba Solano MD PCP - General 07/11/09 documented as of this encounter
--- OUTSIDE RECORDS SUMMARY | 2025-04-21 20:07 | XMS_ITS | Encounter Summary ---
Author Organization [facility] Address [address] [place] [address] Care Team Providers Care Telephone Sex Worker Name Role Phone Cuba Solano MD Primary Care Provider +1 [phone] Encounter Details Date Type Department Care Team (Latest Contact Info) Description 12/10/2006 Outpatient Historical [facility]- [address] [place] [address] Ash Lopez III, MD [address] [place] [address] Pain in Joint, Lower Leg (Primary Dx); Muscular Wasting and Disuse Atrophy, not Elsewhere Classified; Lower Limb Amputation, Above Knee (CMS/HCC) Social History Tobacco Use Types Packs/Day Years Used Date Smoking Tobacco: Never Assessed Sex and Gender Information Value Date Recorded Sex Assigned at Not on file Legal Sex Male 2:49 AM EVP GLOBAL PRODUCT LEADERSHIP Gender Identity Not on file Sexual Orientation Not on file documented as of this encounter Plan of Treatment Not on file documented as of this encounter Visit Diagnoses Diagnosis Pain in joint, lower leg- Primary Muscular wasting and disuse atrophy, 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
--- OUTSIDE RECORDS SUMMARY | 2025-04-21 20:07 | XMS_ITS | Encounter Summary ---
Author Organization [facility] Address [address] [place] [address] Care Team Providers Care Car Examiner Name Role Phone Cuba Solano MD Primary Care Provider +1 [phone] Encounter Details Date Type Department Care Team (Latest Contact Info) Description 05/11/2007 Outpatient Historical [facility] [address] [place] [address] Keyona Mccloud, LUCIEN NO ADDRESS ON FILE DM w/o Complication Type II, Uncontrolled Social History Tobacco Use Types Packs/Day Years Used Date Smoking Tobacco: Never Assessed Sex and Gender Information Value Date Recorded Sex Assigned at Not on file Legal Sex Male 2:49 AM WATER RESOURCES BUSINESS SEGMENT LEADER Gender Identity Not on file Sexual Orientation Not on file documented as of this encounter Plan of Treatment Not on file documented as of this encounter Visit Diagnoses Diagnosis Type II or unspecified type diabetes mellitus 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, uncontrolled documented in this encounter Care Teams Car Examiner Relationship Specialty Start Date End Date Cuba Solano MD PCP - General 07/11/09 documented as of this encounter
--- OUTSIDE RECORDS SUMMARY | 2025-04-21 20:07 | XMS_ITS | Encounter Summary ---
Author Organization [facility] Address [address] [place] [address] Care Team Providers Care Wood Engraver Name Role Phone Cuba Solano MD Primary Care Provider +1 [phone] Encounter Details Date Type Department Care Team (Late st Contact Info) Description 04/05/2007 Outpatient Historical [facility] Family Medicine [place] [address] [address] Keyona Mccloud, THERAPEUTIC RECREATION ASSISTANT NO ADDRESS ON FILE Social History Tobacco Use Types Packs/Day Years Used Date Smoking Tobacco: Never Assessed Sex and Gender Information Value Date Recorded Sex Assigned at Not on file Legal Sex Male 2:49 AM OIL AND GAS WELL TREATMENT OPERATOR Gender Identity Not on file Sexual Orientation Not on file documented as of this encounter Plan of Treatment Not on file documented as of this encounter Visit Diagnoses Not on filedocumented in this encounter Care Teams Wood Engraver Relationship Specialty Start Date End Date Cuba Solano MD PCP - General 07/11/09 documented as of this encounter
--- OUTSIDE RECORDS SUMMARY | 2025-04-21 20:07 | XMS_ITS | Encounter Summary ---
Author Organization [facility] Address [address] [place] [address] Care Team Providers Care Client Services Administrator Name Role Phone Cuba Solano MD Primary Care Provider +1 [phone] Encounter Details Date Type Department Care Team (Late st Contact Info) Description 03/19/2008 Outpatient Historical [facility] Keyona Mccloud, ACID STRENGTH INSPECTOR NO ADDRESS ON FILE Social History Tobacco Use Types Packs/Day Years Used Date Smoking Tobacco: Never Assessed Cigarettes Smokeless Tobacco: Current Chew Alcohol Use Standard Drinks/Week Comments No 0 (1 standard drink = 0.6 oz pur e alcohol) Sex and Gender Information Value Date Recorded Sex Assigned at Not on file Legal Sex Male 2:49 AM SENIOR WEB SERVICES DEVELOPER Gender Identity Not on file Sexual Orientation Not on file documented as of this encounter Plan of Treatment Not on file documented as of this encounter Visit Diagnoses Not on filedocumented in this encounter Care Teams Client Services Administrator Relationship Specialty Start Date End Date Cuba Solano MD PCP - General 07/11/09 documented as of this encounter
--- OUTSIDE RECORDS SUMMARY | 2025-04-21 20:07 | XMS_ITS | Encounter Summary ---
Author Organization [facility] Address [address] [place] [address] Care Team Providers Care Network Operations Specialist Name Role Phone Cuba Solano MD Primary Care Provider +1 [phone] Encounter Details Date Type Department Care Team (Late st Contact Info) Description 02/07/[address] [facility] [address] [place] [address] Per Perea NP [address] [place] [address] Social History Tobacco Use Types Packs/Day Years Used Date Smoking Tobacco: Never Assessed Cigarettes Smokeless Tobacco: Current Chew Alcohol Use Standard Drinks/Week Comments No 0 (1 standard drink = 0.6 oz pur e alcohol) Sex and Gender Information Value Date Recorded Sex Assigned at Not on file Legal Sex Male 2:49 AM PERFORMANCE MANAGEMENT CONSULTANT Gender Identity Not on file Sexual Orientation Not on file documented as of this encounter Plan of Treatment Not on file documented as of this encounter Visit Diagnoses Not on filedocumented in this encounter Care Teams Network Operations Specialist Relationship Specialty Start Date End Date Cuba Solano MD PCP - General 07/11/09 documented as of this encounter
--- OUTSIDE RECORDS SUMMARY | 2025-04-21 20:07 | XMS_ITS | Encounter Summary ---
Author Organization [facility] Address [address] [place] [address] Care Team Providers Care Order Entry Clerk Name Role Phone Cuba Solano MD Primary Care Provider +1 [phone] Encounter Details Date Type Department Care Team (Late st Contact Info) Description 03/07/2007 Outpatient Historical [place] [address] [place] [address] Celso Calvert MD [address] [place] [address] Social History Tobacco Use Types Packs/Day Years Used Date Smoking Tobacco: Never Assessed Sex and Gender Information Value Date Recorded Sex Assigned at Not on file Legal Sex Male 2:49 AM WORKCELL OPERATOR Gender Identity Not on file Sexual Orientation Not on file documented as of this encounter Plan of Treatment Not on file documented as of this encounter Visit Diagnoses Not on filedocumented in this encounter Care Teams Order Entry Clerk Relationship Specialty Start Date End Date Cuba Solano MD PCP - General 07/11/09 documented as of this encounter
--- OUTSIDE RECORDS SUMMARY | 2025-04-21 20:07 | XMS_ITS | Encounter Summary ---
Author Organization [facility] Address [address] [place] [address] Care Team Providers Care Cotton Gin Yard Supervisor Name Role Phone Cuba Solano MD Primary Care Provider +1 [phone] Encounter Details Date Type Department Care Team [...] on filedocumented in this encounter Care Teams Cotton Gin Yard Supervisor Relationship Specialty Start Date End Date Cuab Solano MD PCP - General 07/11/09 documented as of this encounter
--- OUTSIDE RECORDS SUMMARY | 2025-04-21 20:07 | XMS_ITS | Encounter Summary ---
Author Organization [facility] Address [address] [place] [address] Care Team Providers Care Income Tax Analyst Name Role Phone Cuba Solano MD Primary Care Provider +1 [phone] Encounter Details Date Type Department Care Team (Late st Contact Info) Description 09/27/2007 Outpatient Historical [facility] Other, [facility] NO ADDRESS ON FILE Social History Tobacco Use Types Packs/Day Years Used Date Smoking Tobacco: Never Assessed Sex and Gender Information Value Date Recorded Sex Assigned at Not on file Legal Sex Male 2:49 AM PACKING LINE WORKER Gender Identity Not on file Sexual Orientation Not on file documented as of this encounter Plan of Treatment Not on file documented as of this encounter Visit Diagnoses Not on filedocumented in this encounter Care Teams Income Tax Analyst Relationship Specialty Start Date End Date Cuba Solano MD PCP - General 07/11/09 documented as of this encounter
--- OUTSIDE RECORDS SUMMARY | 2025-04-21 20:07 | XMS_ITS | Encounter Summary ---
Author Organization [facility] Address [address] [place] [address] Care Team Providers Care Precipitator Supervisor Name Role Phone Cuba Solano MD Primary Care Provider +1 [phone] Encounter Details Date Type Department Care Team (Late st Contact Info) Description 04/05/2007 Outpatient Historical [facility] Family Medicine [place] [id number] [address] Social History Tobacco Use Types Packs/Day Years Used Date Smoking Tobacco: Never Assessed Sex and Gender Information Value Date Recorded Sex Assigned at Not on file Legal Sex Male 2:49 AM COUNTY HEALTH OFFICER Gender Identity Not on file Sexual Orientation Not on file documented as of this encounter Plan of Treatment Not on file documented as of this encounter Visit Diagnoses Not on filedocumented in this encounter Care Teams Precipitator Supervisor Relationship Specialty Start Date End Date Cuba Solano MD PCP - General 07/11/09 documented as of this encounter
--- OUTSIDE RECORDS SUMMARY | 2025-04-21 20:07 | XMS_ITS | Encounter Summary ---
Author Organization [facility] Address [address] [place] [address] Care Team Providers Care Cementing Bulk Material Operator Name Role Phone Cuba Solano MD Primary Care Provider +1 [phone] Encounter Details Date Type Department Care Team (Latest Contact Info) Description 11/12/2006 Outpatient Historical [facility] Family Medicine [place] [address] [address] Keyona Mccloud, LUCIEN NO ADDRESS ON FILE Pain in Limb (Primary Dx) Social History Tobacco Use Types Packs/Day Years Used Date Smoking Tobacco: Never Assessed Sex and Gender Information Value Date Recorded Sex Assigned at Not on file Legal Sex Male 2:49 AM ASSET ANALYST Gender Identity Not on file Sexual Orientation Not on file documented as of this encounter Plan of Treatment Not on file documented as of this encounter Visit Diagnoses Diagnosis Pain in limb- Primary Pain in soft tissues of limb documented in this encounter Care Teams Cementing Bulk Material Operator Relationship Specialty Start Date End Date Cuba Solano MD PCP - General 07/11/09 documented as of this encounter
--- OUTSIDE RECORDS SUMMARY | 2025-04-21 20:07 | XMS_ITS | Encounter Summary ---
Author Organization [facility] Address [address] [place] [address] Care Team Providers Care Comp Field Case Manager Name Role Phone Cuba Solano MD Primary Care Provider +1 [phone] Encounter Details Date Type Department Care Team (Latest Contact Info) Description 12/03/2006 Outpatient Historical [place] [address] [place] [address] Celso Calvert MD [address] [place] [address] DM w/o Complication Type II, Uncontrolled (Primary Dx) Social History Tobacco Use Types Packs/Day Years Used Date Smoking Tobacco: Never Assessed Sex and Gender Information Value Date Recorded Sex Assigned at Not on file Legal Sex Male 2:49 AM DISTRIBUTION SYSTEMS SUPERINTENDENT Gender Identity Not on file Sexual Orientation Not on file documented as of this encounter Plan of Treatment Not on file documented as of this encounter Visit Diagnoses Diagnosis Type II or unspecified type diabetes mellitus 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, uncontrolled- Primary documented in this encounter Care Teams Comp Field Case Manager Relationship Specialty Start Date End Date Cuba Solano MD PCP - General 07/11/09 documented as of this encounter
--- OUTSIDE RECORDS SUMMARY | 2025-04-21 20:07 | XMS_ITS | Encounter Summary ---
Author Organization [facility] Address [address] [place] [address] Care Team Providers Care Paper Products Supervisor Name Role Phone Cuba Solano MD Primary Care Provider +1 [phone] Encounter Details Date Type Department Care Team (Late st Contact Info) Description 06/20/2007 Outpatient Historical [facility] Other, [facility] NO ADDRESS ON FILE Social History Tobacco Use Types Packs/Day Years Used Date Smoking Tobacco: Never Assessed Sex and Gender Information Value Date Recorded Sex Assigned at Not on file Legal Sex Male 2:49 AM SENIOR BACKUP ADMINISTRATOR Gender Identity Not on file Sexual Orientation Not on file documented as of this encounter Plan of Treatment Not on file documented as of this encounter Visit Diagnoses Not on filedocumented in this encounter Care Teams Paper Products Supervisor Relationship Specialty Start Date End Date Cuba Solano MD PCP - General 07/11/09 documented as of this encounter
--- OUTSIDE RECORDS SUMMARY | 2025-04-21 20:07 | XMS_ITS | Encounter Summary ---
Author Organization [facility] Address [address] [place] [address] Care Team Providers Care Plumbing Contractor Name Role Phone Cuba Solano MD Primary Care Provider +1 -[phone] Encounter Details Date Type Department Care Team (Late st Contact Info) Description 02/24/2008 Outpatient Historical [facility] DEFAULT DEPART[facility] Kvng Kilpatrick MD NO ADDRESS ON FILE Social History Tobacco Use Types Packs/Day Years Used Date Smoking Tobacco: Never Assessed Cigarettes Smokeless Tobacco: Current Chew Alcohol Use Standard Drinks/Week Comments No 0 (1 standard drink = 0.6 oz pur e alcohol) Sex and Gender Information Value Date Recorded Sex Assigned at Not on file Legal Sex Male 2:49 AM SPECIALTY FOODS COOK Gender Identity Not on file Sexual Orientation Not on file documented as of this encounter Plan of Treatment Not on file documented as of this encounter Visit Diagnoses Not on filedocumented in this encounter Care Teams Plumbing Contractor Relationship Specialty Start Date End Date Cuba Solano MD PCP - General 07/11/09 documented as of this encounter
--- OUTSIDE RECORDS SUMMARY | 2025-04-21 20:07 | XMS_ITS | Encounter Summary ---
Author Organization [facility] Address [address] [place] [address] Care Team Providers Care Wardrobe Specialty Worker Name Role Phone Cuba Solano MD Primary Care Provider +1 -[phone] Encounter Details Date Type Department Care Team (Late st Contact Info) Description 05/31/2007 Outpatient Historical [facility] Family Medicine [place] [address] [address] Keyona Mccloud, LEATHER TOGGLER NO ADDRESS ON FILE Social History Tobacco Use Types Packs/Day Years Used Date Smoking Tobacco: Never Assessed Sex and Gender Information Value Date Recorded Sex Assigned at Not on file Legal Sex Male 2:49 AM AUTOMATION AND CONTROLS MANAGER Gender Identity Not on file Sexual Orientation Not on file documented as of this encounter Plan of Treatment Not on file documented as of this encounter Visit Diagnoses Not on filedocumented in this encounter Care Teams Wardrobe Specialty Worker Relationship Specialty Start Date End Date Cuba Solano MD PCP - General 07/11/09 documented as of this encounter
--- OUTSIDE RECORDS SUMMARY | 2025-04-21 20:07 | XMS_ITS | Encounter Summary ---
Author Organization [facility] Address [address] [place] [address] Care Team Providers Care Metalworking Specialist Name Role Phone Cuba Solano MD Primary Care Provider +1 [phone] Encounter Details Date Type Department Care Team (Late st Contact Info) Description 12/15/2007 Outpatient Historical [facility] Keyona Mccloud, MANAGER CUSTOMER SERVICE NO ADDRESS ON FILE Social History Tobacco Use Types Packs/Day Years Used Date Smoking Tobacco: Never Assessed Cigarettes Smokeless Tobacco: Current Chew Alcohol Use Standard Drinks/Week Comments No 0 (1 standard drink = 0.6 oz pur e alcohol) Sex and Gender Information Value Date Recorded Sex Assigned at Not on file Legal Sex Male 2:49 AM PAPER SHEETER Gender Identity Not on file Sexual Orientation Not on file documented as of this encounter Plan of Treatment Not on file documented as of this encounter Visit Diagnoses Not on filedocumented in this encounter Care Teams Metalworking Specialist Relationship Specialty Start Date End Date Cuba Solano MD PCP - General 07/11/09 documented as of this encounter
--- OUTSIDE RECORDS SUMMARY | 2025-04-21 20:07 | XMS_ITS | Encounter Summary ---
Author Organization [facility] Address [address] [place] [address] Care Team Providers Care Paper Testing Supervisor Name Role Phone Cuba Solano MD Primary Care Provider +1 [phone] Encounter Details Date Type Department Care Team (Late st Contact Info) Description 03/02/[address] [facility] [address] [place] [address] Kvng Kilpatrick MD NO ADDRESS ON FILE Social History Tobacco Use Types Packs/Day Years Used Date Smoking Tobacco: Never Assessed Cigarettes Smokeless Tobacco: Current Chew Alcohol Use Standard Drinks/Week Comments No 0 (1 standard drink = 0.6 oz pur e alcohol) Sex and Gender Information Value Date Recorded Sex Assigned at Not on file Legal Sex Male 2:49 AM DOCUMENTATION SPECIALIST Gender Identity Not on file Sexual Orientation Not on file documented as of this encounter Plan of Treatment Not on file documented as of this encounter Visit Diagnoses Not on filedocumented in this encounter Care Teams Paper Testing Supervisor Relationship Specialty Start Date End Date Cuba Solano MD PCP - General 07/11/09 documented as of this encounter
--- OUTSIDE RECORDS SUMMARY | 2025-04-21 20:07 | XMS_ITS | Encounter Summary ---
Author Organization [facility] Address [address] [place] [address] Care Team Providers Care City Editor Name Role Phone Cuba Solano MD Primary Care Provider [phone] Encounter Details Date Type Department Care Team (Late st Contact Info) Description 09/21/2007 Outpatient Historical [facility] Keyona Mccloud, DIRECTOR PRODUCT MANAGEMENT NO ADDRESS ON FILE Social History Tobacco Use Types Packs/Day Years Used Date Smoking Tobacco: Never Assessed Sex and Gender Information Value Date Recorded Sex Assigned at Not on file Legal Sex Male 2:49 AM BUSINESS ADMINISTRATION INSTRUCTOR Gender Identity Not on file Sexual Orientation Not on file documented as of this encounter Plan of Treatment Not on file documented as of this encounter Visit Diagnoses Not on filedocumented in this encounter Care Teams City Editor Relationship Specialty Start Date End Date Cuba Solano MD PCP - General 07/11/09 documented as of this encounter
--- OUTSIDE RECORDS SUMMARY | 2025-04-21 20:07 | XMS_ITS | Encounter Summary ---
Author Organization [facility] Address [address] [place] [address] Care Team Providers Care Mechanic Industrial Truck Name Role Phone Cuba Solano MD Primary Care Provider [phone] Encounter Details Date Type Department Care Team (Late st Contact Info) Description 04/10/2008 Outpatient Historical [facility] [address] [place] [address] Per Perea NP [address] [place] [address] Social History Tobacco Use Types Packs/Day Years Used Date Smoking Tobacco: Never Assessed Cigarettes Smokeless Tobacco: Current Chew Alcohol Use Standard Drinks/Week Comments No 0 (1 standard drink = 0.6 oz pur e alcohol) Sex and Gender Information Value Date Recorded Sex Assigned at Not on file Legal Sex Male 2:49 AM EDI ARCHITECT Gender Identity Not on file Sexual Orientation Not on file documented as of this encounter Plan of Treatment Not on file documented as of this encounter Visit Diagnoses Not on filedocumented in this encounter Care Teams Mechanic Industrial Truck Relationship Specialty Start Date End Date Cuba Solano MD PCP - General 07/11/09 documented as of this encounter
--- OUTSIDE RECORDS SUMMARY | 2025-04-21 20:07 | XMS_ITS | Encounter Summary ---
Author Organization [facility] Address [address] [place] [address] Care Team Providers Care Drug Abuse Resistance Education Officer Name Role Phone Cuba Solano MD Primary Care Provider [phone] [phone] Encounter Details Date Type Department Care Team (Latest Contact Info) Description 11/30/2006 Outpatient Historical [facility] Family Medicine [place] [id number] [address] Keyona Mccloud, LUCIEN NO ADDRESS ON FILE Unspecified Otitis Media (Primary Dx); DM w/o Complication Type II (CMS/HCC); Asymptomatic Varicose Veins Social History Tobacco Use Types Packs/Day Years Used Date Smoking Tobacco: Never Assessed Sex and Gender Information Value Date Recorded Sex Assigned at Not on file Legal Sex Male 2:49 AM ARMY RANGER Gender Identity Not on file Sexual Orientation Not on file documented as of this encounter Plan of Treatment Not on file documented as of this encounter Visit Diagnoses Diagnosis Unspecified otitis media- Primary Type II or unspecified type diabetes mellitus 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, not stated as uncontrolled Asymptomatic varicose veins Uncomplicated varicose veins documented in this encounter Care Teams Drug Abuse Resistance Education Officer Relationship Specialty Start Date End Date Cuba Solano MD PCP - General 07/11/09 documented as of this encounter
--- OUTSIDE RECORDS SUMMARY | 2025-04-21 20:07 | XMS_ITS | Encounter Summary ---
Author Organization [facility] Address [address] [place] [address] Care Team Providers Care Uniformer Name Role Phone Cuba Solano MD Primary Care Provider [phone] [phone] Encounter Details Date Type Department Care Team (Latest Contact Info) Description 12/30/2006 Outpatient Historical [facility] Family Medicine [place] [id number] [address] Keyona Mccloud FNP NO ADDRESS ON FILE DM w/o Complication Type II (CMS/[facility]) (Primary Dx); Allergy, Unspecified not Elsewhere Classified; Unspecified Otitis Media; Neuropathy in Diabetes Social History Tobacco Use Types Packs/Day Years Used Date Smoking Tobacco: Never Assessed Sex and Gender Information Value Date Recorded Sex Assigned at Not on file Legal Sex Male 2:49 AM MOLDING ASSOCIATE Gender Identity Not on file Sexual [...] diabetes documented in this encounter Care Teams Uniformer Relationship Specialty Start Date End Date Cuba Solano MD PCP - General 07/11/09 documented as of this encounter
--- OUTSIDE RECORDS SUMMARY | 2025-04-21 20:07 | XMS_ITS | Encounter Summary ---
Author Organization [facility] Address [address] [place] [address] Care Team Providers Care Car Checker Name Role Phone Cuba Solano MD Primary Care Provider [phone] [phone] Encounter Details Date Type Department Care Team (Latest Contact Info) Description 06/17/2007 Outpatient Historical [place] [address] [place] [address] Celso Calvert MD [address] [place] [id number] DM w/o Complication Type II, Uncontrolled Social History Tobacco Use Types Packs/Day Years Used Date Smoking Tobacco: Never Assessed Sex and Gender Information Value Date Recorded Sex Assigned at Not on file Legal Sex Male 2:49 AM WREATH INSPECTOR Gender Identity Not on file Sexual Orientation Not on file documented as of this encounter Plan of Treatment Not on file documented as of this encounter Visit Diagnoses Diagnosis Type II or unspecified type diabetes mellitus 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, uncontrolled documented in this encounter Care Teams Car Checker Relationship Specialty Start Date End Date Cuba Solano MD PCP - General 07/11/09 documented as of this encounter
--- OUTSIDE RECORDS SUMMARY | 2025-04-21 20:07 | XMS_ITS | Encounter Summary ---
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
--- OUTSIDE RECORDS SUMMARY | 2025-04-21 20:08 | XMS_ITS | Encounter Summary ---
Author Organization [facility] Address [address] [place] [address] Care Team Providers Care Call Out Clerk Name Role Phone Cuba Solano MD Primary Care Provider [phone] Encounter Details Date Type Department Care Team (Latest Contact Info) Description 03/05/2006 Outpatient Historical [facility] Family Medicine [place] [address] [address] Keyona Mccloud, LUCIEN NO ADDRESS ON FILE Unspecified Essential Hypertension (Primary Dx); Edema Social History Tobacco Use Types Packs/Day Years Used Date Smoking Tobacco: Never Assessed Sex and Gender Information Value Date Recorded Sex Assigned at Not on file 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
--- OUTSIDE RECORDS SUMMARY | 2025-04-21 20:08 | XMS_ITS | Encounter Summary ---
Author Organization [facility] Address [address] [place] [address] Care Team Providers Care Air Quality Specialist Name Role Phone Cuba Solano MD Primary Care Provider [phone] Encounter Details Date Type Department Care Team (Latest Contact Info) Description 07/30/2005 Outpatient Historical [facility] Family Medicine [place] [address] [address] Keyona Mccloud, LUCIEN NO ADDRESS ON FILE Unspecified Otitis Media (Primary Dx) Social History Tobacco Use Types Packs/Day Years Used Date Smoking Tobacco: Never Assessed Sex and Gender Information Value Date Recorded Sex Assigned at Not on file 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
--- OUTSIDE RECORDS SUMMARY | 2025-04-21 20:08 | XMS_ITS | Continuity of Care Document ---
Author Organization [employer] [facility] ([facility]) Address [address] [place] [address] Insurance Providers Payer Plan Claims Address Claims Phone Policy Number Group Number Relation Employer Guarantor Name Guarantor Guarantor Address Guarantor Phone [place] [facility] [place] [address] [address], [place] [id number] tel:[phone] [id number] Self Marciano Alonso [address] [place] [id number] [place] [facility] [address], [place] [address] tel:[phone] Self Marciano Alonso [address] [place] [id number] [employer] are Part B Claims Departme nt, [address] [address], [place] [address] tel:[phone] [id number] Self Marciano Alonso [address] [place] [id number] Problems Condition ICD9 code ICD10 code SNOMED [...] / Unit Interp. Refere nce Range Blood chemistry[[id number]] Glucose [Mass/volume] in Serum or Plasma [2345-7] 04/21/2025 06:57 PM 120 mg/dL N Blood chemistry[[id number]] Glucose [Mass/volume] in Serum or Plasma [2345-7] 04/21/2025 02:18 PM 163 mg/dL N Blood chemistry[[id number]] Glucose [Mass/volume] in Serum or Plasma [2345-7] 04/20/2025 03:22 PM 202 mg/dL N Blood chemistry[[id number]] Glucose [Mass/volume] in Serum or Plasma [2345-7] 04/20/2025 06:13 PM 158 mg/dL N Blood chemistry[[id number]] Glucose [Mass/volume] in Serum or Plasma [2345-7] 04/20/2025 12:49 PM 241 mg/dL N Blood chemistry[[id number]] Glucose [Mass/volume] in Serum or Plasma [2345-7] 04/20/2025 10:59 AM 126 mg/dL N Blood chemistry[[id number]] Glucose [Mass/volume] in Serum or Plasma [2345-7] 04/19/2025 03:17 PM 121 mg/dL N Blood chemistry[[id number]] Glucose [Mass/volume] in Serum or Plasma [2345-7] 04/19/2025 06:13 PM 126 mg/dL N Blood chemistry[[id number]] Glucose [Mass/volume] in Serum or Plasma [2345-7] 04/19/2025 09:51 AM 159 mg/dL N Blood chemistry[[id number]] Glucose [Mass/volume] in Serum or Plasma [2345-7] 04/19/2025 12:54 PM 153 mg/dL N Blood chemistry[[id number]] Glucose [Mass/volume] in Serum or Plasma [2345-7] 04/18/2025 01:40 PM 218 mg/dL N Blood chemistry[[id number]] Glucose [Mass/volume] in Serum or Plasma [2345-7] 04/18/2025 05:18 PM 131 mg/dL N Blood chemistry[[id number]] Glucose [Mass/volume] in Serum or Plasma [2345-7] 04/18/2025 09:34 AM 130 mg/dL N Blood chemistry[[id number]] Glucose [Mass/volume] in Serum or Plasma [2345-7] 04/18/2025 01:02 PM 167 mg/dL N Blood chemistry[[id number]] Glucose [Mass/volume] in Serum or Plasma [2345-7] 04/17/2025 02:15 PM 224 mg/dL N Blood chemistry[[id number]] Glucose [Mass/volume] in Serum or Plasma [2345-7] 04/17/2025 05:14 PM 132 mg/dL N Blood chemistry[[id number]] Glucose [Mass/volume] in Serum or Plasma [2345-7] 04/17/2025 09:45 AM 164 mg/dL N Blood chemistry[[id number]] Glucose [Mass/volume] in Serum or Plasma [2345-7] 04/17/2025 12:56 PM 217 mg/dL N Blood chemistry[[id number]] Glucose [Mass/volume] in Serum or Plasma [2345-7] 04/16/2025 01:55 PM 168 mg/dL N Blood chemistry[[id number]] Glucose [Mass/volume] in Serum or Plasma [2345-7] 04/16/2025 09:55 AM 126 mg/dL N Blood chemistry[[id number]] Glucose [Mass/volume] in Serum or Plasma [2345-7] 04/16/2025 05:27 PM 173 mg/dL N Blood chemistry[[id number]] Glucose [Mass/volume] in Serum or Plasma [2345-7] 04/16/2025 01:20 PM 228 mg/dL N Blood chemistry[[id number]] Glucose [Mass/volume] in Serum or Plasma [2345-7] 04/15/2025 03:23 PM 226 mg/dL N Blood chemistry[[id number]] Glucose [Mass/volume] in Serum or Plasma [2345-7] 04/15/2025 05:30 PM 179 mg/dL N Blood chemistry[[id number]] Glucose [Mass/volume] in Serum or Plasma [2345-7] 04/15/2025 09:28 AM 253 mg/dL N Blood chemistry[[id number]] Glucose [Mass/volume] in Serum or Plasma [2345-7] 04/15/2025 12:52 PM 250 mg/dL N Blood chemistry[[id number]] Glucose [Mass/volume] in Serum or Plasma [2345-7] 04/14/2025 04:56 PM 226 mg/dL N Blood chemistry[[id number]] Glucose [Mass/volume] in Serum or Plasma [2345-7] 04/14/2025 05:26 PM 149 mg/dL N Blood chemistry[[id number]] Glucose [Mass/volume] in Serum or Plasma [2345-7] 04/14/2025 10:13 AM 205 mg/dL N Blood chemistry[[id number]] Glucose [Mass/volume] in Serum or Plasma [2345-7] 04/14/2025 12:54 PM 206 mg/dL N Blood chemistry[[id number]] Glucose [Mass/volume] in Serum or Plasma [2345-7] 04/13/2025 01:44 PM 141 mg/dL N Blood chemistry[[id number]] Glucose [Mass/volume] in Serum or Plasma [2345-7] 04/13/2025 05:23 PM 211 mg/dL N Blood chemistry[[id number]] Glucose [Mass/volume] in Serum or Plasma [2345-7] 04/13/2025 10:15 AM 137 mg/dL N Blood chemistry[[id number]] Glucose [Mass/volume] in Serum or Plasma [2345-7] 04/13/2025 01:14 PM 142 mg/dL N Blood chemistry[[id number]] Glucose [Mass/volume] in Serum or Plasma [2345-7] 04/12/2025 05:20 PM 111 mg/dL N Blood chemistry[[id number]] Glucose [Mass/volume] in Serum or Plasma [2345-7] 04/12/2025 05:32 PM 172 mg/dL N Blood chemistry[[id number]] Glucose [Mass/volume] in Serum or Plasma [2345-7] 04/12/2025 09:26 AM 109 mg/dL N Blood chemistry[[id number]] Glucose [Mass/volume] in Serum or Plasma [2345-7] 04/12/2025 01:35 PM 243 mg/dL N Blood chemistry[[id number]] Glucose [Mass/volume] in Serum or Plasma [2345-7] 04/11/2025 04:02 PM 233 mg/dL N Blood chemistry[[id number]] Glucose [Mass/volume] in Serum or Plasma [2345-7] 04/11/2025 10:25 AM 223 mg/dL N Blood chemistry[[id number]] Glucose [Mass/volume] in Serum or Plasma [2345-7] 04/05/2025 05:13 PM 314 mg/dL N Blood chemistry[[id number]] Glucose [Mass/volume] in Serum or Plasma [2345-7] 04/05/2025 11:41 AM 255 mg/dL N Blood chemistry[[id number]] Glucose [Mass/volume] in Serum or Plasma [2345-7] 04/05/2025 05:03 PM 333 mg/dL N Blood chemistry[[id number]] Glucose [Mass/volume] in Serum or Plasma [2345-7] 04/05/2025 12:57 PM 299 mg/dL N Blood chemistry[[id number]] Glucose [Mass/volume] in Serum or Plasma [2345-7] 04/04/2025 01:54 PM 315 mg/dL N Blood chemistry[[id number]] Glucose [Mass/volume] in Serum or Plasma [2345-7] 04/04/2025 05:07 PM 245 mg/dL N Blood chemistry[[id number]] Glucose [Mass/volume] in Serum or Plasma [2345-7] 04/04/2025 10:08 AM 247 mg/dL N Blood chemistry[[id number]] Glucose [Mass/volume] in Serum or Plasma [2345-7] 04/04/2025 01:06 PM 309 mg/dL N Blood chemistry[[id number]] Glucose [Mass/volume] in Serum or Plasma [2345-7] 04/04/2025 06:17 PM 315 mg/dL N Blood chemistry[[id number]] Glucose [Mass/volume] in Serum or Plasma [2345-7] 04/03/2025 05:29 PM 485 mg/dL N Blood chemistry[[id number]] Glucose [Mass/volume] in Serum or Plasma [2345-7] 04/03/2025 10:09 AM 445 mg/dL N Blood chemistry[[id number]] Glucose [Mass/volume] in Serum or Plasma [2345-7] 04/03/2025 01:02 PM 332 mg/dL N Blood chemistry[[id number]] Glucose [Mass/volume] in Serum or Plasma [2345-7] 04/02/2025 01:58 PM 354 mg/dL N Blood chemistry[[id number]] Glucose [Mass/volume] in Serum or Plasma [2345-7] 04/02/2025 11:49 AM 410 mg/dL N Blood chemistry[[id number]] Glucose [Mass/volume] in Serum or Plasma [2345-7] 04/02/2025 10:14 AM 471 mg/dL N Blood chemistry[[id number]] Glucose [Mass/volume] in Serum or Plasma [2345-7] 04/02/2025 10:12 AM 471 mg/dL N Blood chemistry[[id number]] Glucose [Mass/volume] in Serum or Plasma [2345-7] 04/02/2025 01:40 PM 564 mg/dL N Blood chemistry[[id number]] Glucose [Mass/volume] in Serum or Plasma [2345-7] 04/01/2025 02:42 PM 495 mg/dL N Blood chemistry[[id number]] Glucose [Mass/volume] in Serum or Plasma [2345-7] 04/01/2025 11:10 AM 494 mg/dL N Blood chemistry[[id number]] Glucose [Mass/volume] in Serum or Plasma [2345-7] 04/01/2025 05:13 PM 520 mg/dL N Blood chemistry[[id number]] Glucose [Mass/volume] in Serum or Plasma [2345-7] 04/01/2025 01:16 PM 407 mg/dL N Blood chemistry[[id number]] Glucose [Mass/volume] in Serum or Plasma [2345-7] 03/31/2025 03:02 PM 320 mg/dL N Blood chemistry[[id number]] Glucose [Mass/volume] in Serum or Plasma [2345-7] 03/31/2025 05:07 PM 483 mg/dL N Blood chemistry[[id number]] Glucose [Mass/volume] in Serum or Plasma [2345-7] 03/31/2025 10:51 AM 413 mg/dL N Blood chemistry[[id number]] Glucose [Mass/volume] in Serum or Plasma [2345-7] 03/31/2025 12:44 PM 447 mg/dL N Blood chemistry[[id number]] Glucose [Mass/volume] in Serum or Plasma [2345-7] 03/31/2025 06:12 PM 347 mg/dL N Blood chemistry[[id number]] Glucose [Mass/volume] in Serum or Plasma [2345-7] 03/30/2025 05:13 PM 456 mg/dL N Blood chemistry[[id number]] Glucose [Mass/volume] in Serum or Plasma [2345-7] 03/30/2025 10:43 AM 450 mg/dL N Blood chemistry[[id number]] Glucose [Mass/volume] in Serum or Plasma [2345-7] 03/30/2025 01:01 PM 407 mg/dL N Blood chemistry[[id number]] Glucose [Mass/volume] in Serum or Plasma [2345-7] 03/29/2025 12:39 PM 400 mg/dL N Blood chemistry[[id number]] Glucose [Mass/volume] in Serum or Plasma [2345-7] 03/29/2025 11:30 AM 451 mg/dL N Blood chemistry[[id number]] Glucose [Mass/volume] in Serum or Plasma [2345-7] 03/29/2025 05:15 PM 506 mg/dL N Blood chemistry[[id number]] Glucose [Mass/volume] in Serum or Plasma [2345-7] 03/29/2025 01:28 PM 547 mg/dL N Blood chemistry[[id number]] Glucose [Mass/volume] in Serum or Plasma [2345-7] 03/28/2025 01:38 PM 400 mg/dL N Blood chemistry[[id number]] Glucose [Mass/volume] in Serum or Plasma [2345-7] 03/28/2025 12:30 PM 543 mg/dL N Blood chemistry[[id number]] Glucose [Mass/volume] in Serum or Plasma [2345-7] 03/27/2025 04:20 PM 400 mg/dL N Blood chemistry[[id number]] Glucose [Mass/volume] in Serum or Plasma [2345-7] 03/27/2025 05:24 PM 383 mg/dL N Blood chemistry[[id number]] Glucose [Mass/volume] in Serum or Plasma [2345-7] 03/27/2025 10:30 AM 441 mg/dL N Blood chemistry[[id number]] Glucose [Mass/volume] in Serum or Plasma [2345-7] 03/27/2025 02:22 PM 354 mg/dL N Blood chemistry[[id number]] Glucose [Mass/volume] in Serum or Plasma [2345-7] 03/26/2025 03:17 PM 400 mg/dL N Blood chemistry[[id number]] Glucose [Mass/volume] in Serum or Plasma [2345-7] 03/26/2025 10:24 AM 284 mg/dL N Blood chemistry[[id number]] Glucose [Mass/volume] in Serum or Plasma [2345-7] 03/26/2025 05:13 PM 519 mg/dL N Blood chemistry[[id number]] Glucose [Mass/volume] in Serum or Plasma [2345-7] 03/26/2025 12:22 PM 381 mg/dL N Blood chemistry[[id number]] Glucose [Mass/volume] in Serum or Plasma [2345-7] 03/25/2025 05:40 PM 387 mg/dL N Blood chemistry[[id number]] Glucose [Mass/volume] in Serum or Plasma [2345-7] 03/25/2025 03:11 PM 314 mg/dL N Blood chemistry[[id number]] Glucose [Mass/volume] in Serum or Plasma [2345-7] 03/25/2025 08:05 AM 471 mg/dL N Blood chemistry[[id number]] Glucose [Mass/volume] in Serum or Plasma [2345-7] 03/24/2025 03:08 PM 389 mg/dL N Blood chemistry[[id number]] Glucose [Mass/volume] in Serum or Plasma [2345-7] 03/24/2025 11:20 AM 383 mg/dL N Blood chemistry[[id number]] Glucose [Mass/volume] in Serum or Plasma [2345-7] 03/24/2025 06:54 PM 302 mg/dL N Blood chemistry[[id number]] Glucose [Mass/volume] in Serum or Plasma [2345-7] 03/24/2025 02:47 PM 403 mg/dL N Blood chemistry[[id number]] Glucose [Mass/volume] in Serum or Plasma [2345-7] 03/24/2025 07:29 AM 212 mg/dL N Blood chemistry[[id number]] Glucose [Mass/volume] in Serum or Plasma [2345-7] 03/23/2025 05:34 PM 297 mg/dL N Blood chemistry[[id number]] Glucose [Mass/volume] in Serum or Plasma [2345-7] 03/23/2025 10:52 AM 269 mg/dL N Blood chemistry[[id number]] Glucose [Mass/volume] in Serum or Plasma [2345-7] 03/23/2025 01:19 PM 333 mg/dL N Blood chemistry[[id number]] Glucose [Mass/volume] in Serum or Plasma [2345-7] 03/22/2025 04:50 PM 320 mg/dL N Blood chemistry[[id number]] Glucose [Mass/volume] in Serum or Plasma [2345-7] 03/22/2025 05:58 PM 295 mg/dL N Blood chemistry[[id number]] Glucose [Mass/volume] in Serum or Plasma [2345-7] 03/22/2025 10:45 AM 204 mg/dL N Blood chemistry[[id number]] Glucose [Mass/volume] in Serum or Plasma [2345-7] 03/22/2025 01:01 PM 294 mg/dL N Blood chemistry[[id number]] Glucose [Mass/volume] in Serum or Plasma [2345-7] 03/21/2025 01:35 PM 400 mg/dL N Blood chemistry[[id number]] Glucose [Mass/volume] in Serum or Plasma [2345-7] 03/21/2025 05:10 PM 321 mg/dL N Blood chemistry[[id number]] Glucose [Mass/volume] in Serum or Plasma [2345-7] 03/21/2025 10:36 AM 356 mg/dL N Blood chemistry[[id number]] Glucose [Mass/volume] in Serum or Plasma [2345-7] 03/21/2025 01:14 PM 278 mg/dL N Blood chemistry[[id number]] Glucose [Mass/volume] in Serum or Plasma [2345-7] 03/20/2025 02:11 PM 384 mg/dL N Blood chemistry[[id number]] Glucose [Mass/volume] in Serum or Plasma [2345-7] 03/20/2025 10:41 AM 309 mg/dL N Blood chemistry[[id number]] Glucose [Mass/volume] in Serum or Plasma [2345-7] 03/20/2025 11:15 AM 352 mg/dL N Blood chemistry[[id number]] Glucose [Mass/volume] in Serum or Plasma [2345-7] 03/19/2025 01:21 PM 400 mg/dL N Blood chemistry[[id number]] Glucose [Mass/volume] in Serum or Plasma [2345-7] 03/19/2025 04:59 PM 252 mg/dL N Blood chemistry[[id number]] Glucose [Mass/volume] in Serum or Plasma [2345-7] 03/19/2025 10:13 AM 226 mg/dL N Blood chemistry[[id number]] Glucose [Mass/volume] in Serum or Plasma [2345-7] 03/19/2025 12:23 PM 204 mg/dL N Blood chemistry[[id number]] Glucose [Mass/volume] in Serum or Plasma [2345-7] 03/18/2025 05:01 PM 202 mg/dL N Blood chemistry[[id number]] Glucose [Mass/volume] in Serum or Plasma [2345-7] 03/18/2025 11:19 AM 251 mg/dL N Blood chemistry[[id number]] Glucose [Mass/volume] in Serum or Plasma [2345-7] [...] 120, subcutaneous, At Bedtime subcutaneo us 1.0 04/06 Active Ozempic (semaglutide) 2 mg/dose (8 mg/3 mL) pen injector (Ozempic (semaglutide)) 2mg, subcutaneous, Once A Day on Wed subcutaneo us 1.0 1.0 d 04/06 Active brinzolamide 1 % drops,suspensio n (brinzolamide) 1 drop, ophthalmic (eye), Twice A Day, both eyes 1.0 12.0 h 04/06 Active latanoprost 0.005 % drops (latanoprost) 1 drop, ophthalmic (eye), At Bedtime, both eyes 1.0 04/06 Active Afluria 2376-5152 (3yr up)(PF) (flu vac [id number] 36mos up(pf)) 45 mcg (15 mcg x 3)/0.5 m syringe (Afluria (3yr up)(PF) (flu vac [id number] 36mos up(pf))) 0.5ml, intramuscular , Once - [...] Day oral 1.0 1.0 d 04/06 Active bumetanide 1 mg tablet (bumetanide) 1, [...] 0.5mg, subcutaneous, Once A Day on Wed [facility] us 1.0 1.0 d 04/06 Active Ozempic (semaglutide) 0.25 mg or 0.5 mg (2 mg/3 mL) pen injector (Ozempic (semaglutide)) 0.5mg, subcutaneous, Once A Day on Wed [facility] us 1.0 1.0 d 04/06 Active potassium [...] on the day shift intraderma l 1.0 04/065 Active acetaminophen 500 mg tablet (acetaminophen) 1 [...] Once A Day oral 1.0 1.0 d 04/16 Active diltiazem HCl 180 mg capsule,extende d [...] before and after use(SASH) 1.0 8.0 h 04/16 Active nystatin 100,000 unit/gram cream (nystatin) as [...] ears, for irritation topical 1.0 12.0 h 04/16 Active insulin aspart U-100 100 unit/mL (3 mL) insulin pen (insulin aspart U-100) Per Sliding Scale, subcutaneous, Before Meals and At Bedtime, If Blood Sugar is less than 60, call .If Blood Sugar is 150 to 200, give [...] or greater than 400 and symptomatic, call subcutaneo us 1.0 2024 Active insulin degludec 100 unit/mL (3 mL) insulin pen (insulin degludec) 120, subcutaneous, At Bedtime subcutaneo us 1.0 04/13 Active Ozempic (semaglutide) 2 mg/dose (8 mg/3 mL) pen injector (Ozempic (semaglutide)) 2mg, subcutaneous, Once A Day on Wed subcutaneo us 1.0 1.0 d 2024 Type 2 diabetes mellitus with diabetic chronic kidney disease Active insulin degludec 100 unit/mL solution (insulin degludec) 120 units, subcutaneous, At Bedtime subcutaneo us 1.0 2024 Active Triad Wound Dressing (wound dressings) - paste (Triad Wound Dressing (wound dressings)) small, topical, Every Shift, Clean resident buttocks with baby oil and reapply a small amount of triad to affected areas. topical 1.0 8.0 h 04/16 Active ertapenem 1 gram recon soln (ertapenem) 1 gram, intramuscular , Once A Day, through 04/23 dilute with 3.2ml of Lidocaine and then withdraw all contents to equal 1gm intramuscu lar 1.0 1.0 d 04/23 Active ertapenem 1 gram recon soln (ertapenem) 1 gram, intramuscular , Once A Day, through 04/23 intramuscu lar 1.0 1.0 d 04/16 Active lactulose 10 gram/15 mL solution (lactulose) 30ml, oral, Twice A Day oral 1.0 12.0 h 2024 Active ertapenem 1 gram recon soln (ertapenem) 1 gram, intravenous, Once A Day, through 04/23 intravenou s 1.0 1.0 d 04/16 Active fluconazole 200 mg tablet (fluconazole) 2, oral, Once - One Time oral 1.0 04/17 Active fluconazole 200 mg tablet (fluconazole) 1, oral, Once A Day oral 1.0 1.0 d 04/24 Active Vital Signs Date Vital Result Comment 03/18/2025 11:03 PM Oxygen Saturation (24523-2) 95 % 03/19/2025 06:15 AM Body Weight (30471-1) 288.6 [lb_av ] Body Mass Index (69357-2) 39.14 kg/m2 03/19/2025 10:47 AM Oxygen Saturation (67168-6) 99 % 03/20/2025 12:07 AM Oxygen Saturation (04865-1) 98 % 03/20/2025 07:21 AM Oxygen Saturation (46957-0) 97 % 03/20/2025 07:25 AM Temperature (8310-5) 98.2 [degF] 03/21/2025 07:14 AM Body Weight (83218-9) 287 [lb_av] Body Mass Index (31178-3) 38.92 kg/m2 03/21/2025 07:15 AM Temperature (8310-5) 98.6 [degF] 03/21/2025 08:21 AM Temperature (8310-5) 98.1 [degF] Oxygen Saturation (72880-7) 98 % Respiratory Rate (9279-1) 15 /min Heart Rate (8867-4) 76 /min Blood Pressure Systolic (8480-6) 102 mm[Hg] Blood Pressure Diastolic (8462-4) 58 mm[Hg] 03/22/2025 07:33 AM Oxygen Saturation (78909-7) 98 % 03/22/2025 07:02 AM Temperature (8310-5) 98.5 [degF] 03/23/2025 07:20 AM Temperature (8310-5) 97.8 [degF] 03/23/2025 02:44 PM Oxygen Saturation (89339-6) 96 % 03/24/2025 08:55 AM Oxygen Saturation (83846-1) 95 % 03/24/2025 01:30 AM Oxygen Saturation (29812-8) 96 % 03/24/2025 11:01 PM Oxygen Saturation (65383-1) 95 % 03/25/2025 09:12 AM Oxygen Saturation (10598-3) 98 % 03/25/2025 05:20 PM Temperature (8310-5) 98 [degF] 03/25/2025 11:41 PM Oxygen Saturation (30728-0) 95 % 03/26/2025 12:25 PM Oxygen Saturation (00318-7) 98 % 03/26/2025 09:18 PM Oxygen Saturation (89060-7) 97 % 03/27/2025 08:21 AM Oxygen Saturation (08643-0) 98 % 03/27/2025 07:38 AM Temperature (8310-5) 98.1 [degF] 03/27/2025 04:32 PM Temperature (8310-5) 97.8 [degF] 03/27/2025 06:37 PM Oxygen Saturation (85612-8) 97 % 03/28/2025 09:46 AM Temperature (8310-5) 97.7 [degF] Oxygen Saturation (26197-4) 99 % Respiratory Rate (9279-1) 15 /min Heart Rate (8867-4) 108 /min Blood Pressure Systolic (8480-6) 110 mm[Hg] Blood Pressure Diastolic (8462-4) 58 mm[Hg] 03/28/2025 09:47 AM Body Weight (00699-4) 287 [lb_av] Body Mass Index (98359-1) 38.92 kg/m2 03/29/2025 07:28 AM Temperature (8310-5) 98 [degF] 03/28/2025 11:42 PM Oxygen Saturation (61974-8) 97 % 03/29/2025 07:26 AM Oxygen Saturation (93369-8) 99 % 03/29/2025 03:36 PM Temperature (8310-5) 98.2 [degF] 03/29/2025 07:44 PM Oxygen Saturation (53439-5) 97 % 03/30/2025 07:00 AM Oxygen Saturation (13670-6) 100 % 03/30/2025 07:01 AM Temperature (8310-5) 98.6 [degF] 03/31/2025 12:12 AM Oxygen Saturation (60705-9) 95 % 03/31/2025 06:45 AM Temperature (8310-5) 98.4 [degF] 03/31/2025 06:43 AM Oxygen Saturation (38155-9) 99 % 03/31/2025 11:44 PM Oxygen Saturation (30414-5) 95 % 04/01/2025 07:14 AM Oxygen Saturation (91907-5) 98 % 04/01/2025 08:28 PM Oxygen Saturation (60266-1) 95 % 04/02/2025 11:34 AM Body Weight (71585-0) 287 [lb_av] Body Mass Index (45369-1) 38.92 kg/m2 04/02/2025 11:27 AM Oxygen Saturation (85997-1) 99 % 04/02/2025 08:07 PM Oxygen Saturation (01381-7) 93 % 04/03/2025 07:02 AM Temperature (8310-5) 98.6 [degF] 04/03/2025 07:21 AM Oxygen Saturation (58405-9) 98 % 04/04/2025 08:04 AM Oxygen Saturation (71598-5) 98 % 04/04/2025 07:05 AM Body Weight (27595-6) 283 [lb_av] Body Mass Index (59726-3) 38.38 kg/m2 04/04/2025 07:07 AM Temperature (8310-5) 98 [degF] 04/04/2025 08:05 AM Respiratory Rate (9279-1) 18 /min Heart Rate (8867-4) 103 /min Blood Pressure Systolic (8480-6) 137 mm[Hg] Blood Pressure Diastolic (8462-4) 55 mm[Hg] 04/04/2025 08:16 PM Oxygen Saturation (50709-6) 97 % 04/04/2025 08:14 PM Respiratory Rate (9279-1) 18 /min 04/04/2025 08:13 PM Temperature (8310-5) 96.2 [degF] Heart Rate (8867-4) 65 /min 04/04/2025 08:15 PM Blood Pressure Systolic (8480-6) 1 23 mm[Hg] Blood Pressure Diastolic (8462-4) 67 mm[Hg] 04/05/2025 06:56 AM Oxygen Saturation (19942-9) 100 % 04/05/2025 03:49 PM Temperature (8310-5) 97.5 [degF] 04/05/2025 07:42 PM Oxygen Saturation (44842-6) 95 % 04/11/2025 04:30 PM Temperature (8310-5) 98 [degF] Oxygen Saturation (08245-5) 95 % Respiratory Rate (9279-1) 28 /min Heart Rate (8867-4) 112 /min Blood Pressure Systolic (8480-6) 156 mm[Hg] Blood Pressure Diastolic (8462-4) 83 mm[Hg] 04/11/2025 01:49 PM Temperature (8310-5) 97.9 [degF] Oxygen Saturation (09166-3) 93 % Respiratory Rate (9279-1) 28 /min Heart Rate (8867-4) 102 /min Blood Pressure Systolic (8480-6) 99 mm[Hg] Blood Pressure Diastolic (8462-4) 61 mm[Hg] 04/12/2025 12:11 AM Temperature (8310-5) 98 [degF] Oxygen Saturation (10748-1) 99 % Respiratory Rate (9279-1) 15 /min Heart Rate (8867-4) 75 /min Blood Pressure Systolic (8480-6) 125 mm[Hg] Blood Pressure Diastolic (8462-4) 79 mm[Hg] 04/12/2025 07:52 AM Oxygen Saturation (27581-6) 99 % Respiratory Rate (9279-1) 20 /min Heart Rate (8867-4) 80 /min Blood Pressure Systolic (8480-6) 113 mm[Hg] Blood Pressure Diastolic (8462-4) 60 mm[Hg] 04/12/2025 07:33 AM Temperature (8310-5) 98.5 [degF] 04/12/2025 11:27 PM Temperature (8310-5) 96.9 [degF] Oxygen Saturation (13653-5) 91 % Respiratory Rate (9279-1) 12 /min Heart Rate (8867-4) 86 /min Blood Pressure Systolic (8480-6) 120 mm[Hg] Blood Pressure Diastolic (8462-4) 67 mm[Hg] 04/13/2025 07:14 AM Temperature (8310-5) 98.2 [degF] Oxygen Saturation (59028-9) 93 % Respiratory Rate (9279-1) 16 /min Heart Rate (8867-4) 82 /min Blood Pressure Systolic (8480-6) 122 mm[Hg] Blood Pressure Diastolic (8462-4) 60 mm[Hg] 04/14/2025 06:55 AM Temperature (8310-5) 97.7 [degF] Oxygen Saturation (29269-6) 98 % Respiratory Rate (9279-1) 18 /min Heart Rate (8867-4) 98 /min Blood Pressure Systolic (8480-6) 111 mm[Hg] Blood Pressure Diastolic (8462-4) 57 mm[Hg] 04/14/2025 01:44 AM Temperature (8310-5) 97 [degF] Oxygen Saturation (63388-0) 95 % Respiratory Rate (9279-1) 16 /min Heart Rate (8867-4) 80 /min Blood Pressure Systolic (8480-6) 132 mm[Hg] Blood Pressure Diastolic (8462-4) 88 mm[Hg] 04/14/2025 03:01 PM Body Weight (61396-1) 286 [lb_av] Body Mass Index (12004-5) 38.78 kg/m2 04/14/2025 04:13 PM Temperature (8310-5) 98 [degF] 04/15/2025 07:04 AM Oxygen Saturation (62920-8) 98 % Respiratory Rate (9279-1) 18 /min Heart Rate (8867-4) 104 /min Blood Pressure Systolic (8480-6) 124 mm[Hg] Blood Pressure Diastolic (8462-4) 67 mm[Hg] 04/15/2025 06:48 AM Temperature (8310-5) 98.5 [degF] 04/15/2025 01:19 AM Temperature (8310-5) 98 [degF] Oxygen Saturation (59213-5) 95 % Respiratory Rate (9279-1) 16 /min Heart Rate (8867-4) 80 /min Blood Pressure Systolic (8480-6) 105 mm[Hg] Blood Pressure Diastolic (8462-4) 58 mm[Hg] 04/15/2025 03:14 PM Body Weight (08703-0) 286.3 [lb_av ] Body Mass Index (67885-8) 38.83 kg/m2 04/15/2025 11:41 PM Temperature (8310-5) 98.9 [degF] Oxygen Saturation (11681-2) 95 % Respiratory Rate (9279-1) 16 /min Heart Rate (8867-4) 70 /min Blood Pressure Systolic (8480-6) 126 mm[Hg] Blood Pressure Diastolic (8462-4) 78 mm[Hg] 04/16/2025 03:49 PM Body Weight (42266-7) 285.2 [lb_av ] Body Mass Index (57327-3) 38.68 kg/m2 04/16/2025 12:13 PM Temperature (8310-5) 98.2 [degF] Oxygen Saturation (50940-4) 93 % Respiratory Rate (9279-1) 20 /min Heart Rate (8867-4) 86 /min Blood Pressure Systolic (8480-6) 122 mm[Hg] Blood Pressure Diastolic (8462-4) 62 mm[Hg] 04/16/2025 08:08 PM Temperature (8310-5) 97.5 [degF] Oxygen Saturation (13804-8) 98 % Respiratory Rate (9279-1) 16 /min Heart Rate (8867-4) 94 /min Blood Pressure Systolic (8480-6) 138 mm[Hg] Blood Pressure Diastolic (8462-4) 98 mm[Hg] 04/17/2025 07:05 AM Oxygen Saturation (19583-6) 95 % Respiratory Rate (9279-1) 18 /min Heart Rate (8867-4) 103 /min Blood Pressure Systolic (8480-6) 105 mm[Hg] Blood Pressure Diastolic (8462-4) 50 mm[Hg] 04/17/2025 06:55 AM Temperature (8310-5) 98 [degF] 04/17/2025 01:47 PM Body Weight (99861-8) 285.7 [lb_av ] Body Mass Index (18727-3) 38.74 kg/m2 04/18/2025 07:14 AM Temperature (8310-5) 98.8 [degF] Oxygen Saturation (32115-4) 97 % Respiratory Rate (9279-1) 20 /min Heart Rate (8867-4) 97 /min Blood Pressure Systolic (8480-6) 102 mm[Hg] Blood Pressure Diastolic (8462-4) 47 mm[Hg] 04/18/2025 02:26 AM Temperature (8310-5) 97.3 [degF] Oxygen Saturation (65236-1) 93 % Respiratory Rate (9279-1) 18 /min Heart Rate (8867-4) 110 /min Blood Pressure Systolic (8480-6) 109 mm[Hg] Blood Pressure Diastolic (8462-4) 53 mm[Hg] 04/18/2025 07:52 PM Temperature (8310-5) 98.7 [degF] Oxygen Saturation (85753-9) 93 % Respiratory Rate (9279-1) 20 /min Heart Rate (8867-4) 102 /min Blood Pressure Systolic (8480-6) 144 mm[Hg] Blood Pressure Diastolic (8462-4) 81 mm[Hg] 04/19/2025 06:52 AM Temperature (8310-5) 98.2 [degF] 04/19/2025 07:03 AM Temperature (8310-5) 97.4 [degF] Oxygen Saturation (25532-4) 97 % Respiratory Rate (9279-1) 20 /min Heart Rate (8867-4) 58 /min Blood Pressure Systolic (8480-6) 142 mm[Hg] Blood Pressure Diastolic (8462-4) 48 mm[Hg] 04/19/2025 11:38 PM Temperature (8310-5) 97 [degF] Oxygen Saturation (87480-3) 96 % Respiratory Rate (9279-1) 16 /min Heart Rate (8867-4) 99 /min Blood Pressure Systolic (8480-6) 109 mm[Hg] Blood Pressure Diastolic (8462-4) 53 mm[Hg] 04/20/2025 06:57 AM Temperature (8310-5) 97.2 [degF] 04/20/2025 10:05 AM Temperature (8310-5) 97.8 [degF] Oxygen Saturation (61434-0) 93 % Respiratory Rate (9279-1) 20 /min Heart Rate (8867-4) 88 /min Blood Pressure Systolic (8480-6) 130 mm[Hg] Blood Pressure Diastolic (8462-4) 74 mm[Hg] 04/21/2025 12:24 AM Temperature (8310-5) 97 [degF] Oxygen Saturation (79124-3) 95 % Respiratory Rate (9279-1) 18 /min Heart Rate (8867-4) 70 /min Blood Pressure Systolic (8480-6) 123 mm[Hg] Blood Pressure Diastolic (8462-4) 78 mm[Hg] 04/21/2025 08:46 AM Temperature (8310-5) 98.3 [degF] Oxygen Saturation (26108-4) 94 % Respiratory Rate (9279-1) 20 /min Heart Rate (8867-4) 112 /min Blood Pressure Systolic (8480-6) 113 mm[Hg] Blood Pressure Diastolic (8462-4) 54 mm[Hg] Social History No smoking Hx information available Encounters Type CPT Code Date Location Provider Indication s encounter report 02/24/2024 05:2 5 PM - 02/09/2025 11:54 AM Chris Parker DO encounter report 02/24/2024 05:2 5 PM - 03/13/2025 05:16 AM Chris Parker DO encounter report 02/24/2024 05:2 5 PM - 04/06/2025 05:15 AM Chris Parker DO
--- OUTSIDE RECORDS SUMMARY | 2025-04-21 20:08 | XMS_ITS | Encounter Summary ---
Author Organization [facility] Address [address] [place] [address] Care Team Providers Care Genetics Nurse Name Role Phone Cuba Solano MD Primary Care Provider +1 [phone] Encounter Details Date Type Department Care Team (Latest Contact Info) Description 12/10/2004 Outpatient Historical [facility] Orthopedics- 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
--- OUTSIDE RECORDS SUMMARY | 2025-04-21 20:08 | XMS_ITS | Encounter Summary ---
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
--- OUTSIDE RECORDS SUMMARY | 2025-04-21 20:08 | XMS_ITS | Encounter Summary ---
Author Organization [facility] Address [address] [place] [address] Care Team Providers Care Casework Manager Name Role Phone Cuba Solano MD Primary Care Provider +1 [phone] Encounter Details Date Type Department Care Team (Latest Contact Info) Description 05/15/2005 Outpatient Historical [facility] Family Medicine [place] [id number] [address] Keyona Mccloud, LUCIEN NO ADDRESS ON FILE DIABETES MELLITUS TYPE II-UNCOMPL (CMS/HCC) (Primary Dx); HYPERLIPIDEMIA NEC/NOS; ACUTE URI NOS Social History Tobacco Use Types Packs/Day Years Used Date Smoking Tobacco: Never Assessed Sex and Gender Information Value Date Recorded Sex Assigned at Not on file 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
--- OUTSIDE RECORDS SUMMARY | 2025-04-21 20:08 | XMS_ITS | Encounter Summary ---
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
--- OUTSIDE RECORDS SUMMARY | 2025-04-21 20:08 | XMS_ITS | Encounter Summary ---
Author Organization [facility] Address 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 Gender Identity Not on file Sexual Orientation Not on file documented as of this encounter Plan of Treatment Upcoming Encounters Date Type Department Care Team (Late Contact Info) Description 06/06/2025 11:30 AM PIPE OR STEAM FITTER FURNACE INSTALLER Office Visit [facility] [address] Becki Falcon NP [address] [address] documented as of this encounter Visit Diagnoses Not on filedocumented in this encounter Care Teams Tools Administrator Relationship Specialty Start Date End Date Cuba Solano MD PCP - General 07/11/09 documented as of this encounter
--- OUTSIDE RECORDS SUMMARY | 2025-04-21 20:08 | XMS_ITS | Encounter Summary ---
Author Organization [facility] Address [address] [place] [address] Care Team Providers Care Swamper Name Role Phone Cuba Solano MD Primary Care Provider +1 [phone] Encounter Details Date Type Department Care Team (Latest Contact Info) Description 05/26/2005 Outpatient Historical [facility] Family Medicine [place] 363662 [address] [address] Keyona Mccloud, LUCIEN NO ADDRESS ON FILE ALLERGY, UNSPECIFIED (Primary Dx); TRACHEA/BRONCHUS DIS NEC Social History Tobacco Use Types Packs/Day Years Used Date Smoking Tobacco: Never Assessed Sex and Gender Information Value Date Recorded Sex Assigned at Not on file 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
--- OUTSIDE RECORDS SUMMARY | 2025-04-21 20:08 | XMS_ITS | Encounter Summary ---
Author Organization [facility] Address [address] [place] [address] Care Team Providers Care Account Executive Healthcare Name Role Phone Cuba Solano MD Primary Care Provider +1 [phone] Encounter Details Date Type Department Care Team (Late st Contact Info) Description 03/04/2005 Outpatient Historical [facility] Family Medicine [place] [address] [address] Social History Tobacco Use Types Packs/Day Years Used Date Smoking Tobacco: Never Assessed Sex and Gender Information Value Date Recorded Sex Assigned at Not on file 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
--- OUTSIDE RECORDS SUMMARY | 2025-04-21 20:08 | XMS_ITS | Encounter Summary ---
Author Organization [facility] Address [address] [place] [address] Care Team Providers Care Labeling Strategist Name Role Phone Cuba Solano MD Primary Care Provider +1 [phone] Encounter Details Date Type Department Care Team (Latest Contact Info) Description 02/06/2005 Outpatient Historical [facility] Family Medicine [place] [facility] [address] [address] Huey Upton Jr., MD [address] [place] [address] 248 [facility] [address] [place] [address] HAIR DISEASES NEC (Primary Dx); DIABETES MELLITUS TYPE II-UNCOMPL (CMS/[facility]); Dysfunct eustachian tube; Vaccine for influenza Social History Tobacco Use Types Packs/Day Years Used Date Smoking Tobacco: Never Assessed Sex and Gender Information Value Date Recorded Sex Assigned at Not on file 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
--- OUTSIDE RECORDS SUMMARY | 2025-04-21 20:08 | XMS_ITS | Encounter Summary ---
Author Organization [facility] Address [address] [place] [address] Care Team Providers Care Right Of Way Buyer Name Role Phone Cuba Solano MD Primary Care Provider [phone] [phone] Encounter Details Date Type Department Care Team (Latest Contact Info) Description 12/26/2004 Outpatient Historical [facility] Family Medicine [place] [facility] [address] [address] Huey Upton Jr., MD [address] [place] [address] 248 [facility] 140 [place] [address] IMPETIGO (Primary Dx) Social History Tobacco Use Types Packs/Day Years Used Date Smoking Tobacco: Never Assessed Sex and Gender Information Value Date Recorded Sex Assigned at Not on file Legal 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
--- OUTSIDE RECORDS SUMMARY | 2025-04-21 20:08 | XMS_ITS | Encounter Summary ---
Author Organization [facility] Address [address] [place] [address] Care Team Providers Care Pricing Coordinator Name Role Phone Cuba Solano MD Primary Care Provider +1 [phone] Encounter Details Date Type Department Care Team (Latest Contact Info) Description 03/16/2006 Outpatient Historical [facility] Orthopedics- 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
--- OUTSIDE RECORDS SUMMARY | 2025-04-21 20:08 | XMS_ITS | Encounter Summary ---
Author Organization [facility] Address [address] [place] [address] Care Team Providers Care Director Of Maintenance Name Role Phone Cuba Solano MD Primary Care Provider +1 [phone] Encounter Details Date Type Department Care Team (Latest Contact Info) Description 01/18/2006 [facility] 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
--- OUTSIDE RECORDS SUMMARY | 2025-04-21 20:08 | XMS_ITS | Encounter Summary ---
Author Organization [facility] Address [address] [place] [address] Care Team Providers Care Machine Egg Washer Name Role Phone Cuba Solano MD Primary Care Provider +1 [phone] Encounter Details Date Type Department Care Team (Latest Contact Info) Description 01/09/2005 Outpatient Historical [facility] Family Medicine [place] [facility] [address] [address] Huey Upton Jr., MD [address] [place] [address] 248 [facility] 140 [place] [address] DERMATITIS NEC (Primary Dx) Social History Tobacco Use Types Packs/Day Years Used Date Smoking Tobacco: Never Assessed Sex and Gender Information Value Date Recorded Sex Assigned at Not on file Legal Sex Male 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
--- OUTSIDE RECORDS SUMMARY | 2025-04-21 20:08 | XMS_ITS | Encounter Summary ---
Author Organization [facility] Address [address] [place] [address] Care Team Providers Care Forest Ranger Technician Name Role Phone Cuba Solano MD Primary Care Provider +1 [phone] Encounter Details Date Type Department Care Team (Latest Contact Info) Description 07/20/[address] [facility] 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
--- OUTSIDE RECORDS SUMMARY | 2025-04-21 20:08 | XMS_ITS | Encounter Summary ---
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
--- OUTSIDE RECORDS SUMMARY | 2025-04-21 20:08 | XMS_ITS | Encounter Summary ---
Author Organization [facility] Address [address] [place] [address] Care Team Providers Care Highway Maintenance Worker Name Role Phone Cuba Solano MD Primary Care Provider +1 -[phone] Encounter Details Date Type Department Care Team (Latest Contact Info) Description 12/03/2004 Outpatient Historical [facility] Orthopedics- 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
--- OUTSIDE RECORDS SUMMARY | 2025-04-21 20:08 | XMS_ITS | Encounter Summary ---
Author Organization [facility] Address [address] [place] [address] Care Team Providers Care Mud Analysis Well Logging Captain Name Role Phone Cuba Solano MD Primary Care Provider +1 -[phone] Encounter Details Date Type Department Care Team (Latest Contact Info) Description 04/17/2005 Outpatient Historical [facility] Family Medicine [place] [facility] [address] [address] Huey Upton Jr., MD [address] [place] [address] 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
--- OUTSIDE RECORDS SUMMARY | 2025-04-21 20:08 | XMS_ITS | Clinical Summary ---
Author Organization [facility] Address [address] [place]: [place] [address] Care Team Providers Care Returner Name Role Phone Cuba Solano MD Primary Care Provider +1 [phone] Allergies Active Allergy Reactions Criticality Noted Date [...] TAB, PO, BID, # 60 TAB, Pharmacy: [facility] [place], 182, cm, 11/22/23 19:48:00 CDT, Height CM, [...] Constipation. Active fluticasone propionate (FLONASE) 50 mcg/spray [place], Suspension nasal inhaler Administer 2 Sprays in [...] Data STL ABSTRACTION Provider, Abstract 03/16/[address] [place] [address] Kat Vyas, RN 03/14/[address] [address] Becki Falcon NP Medical records request 03/02/[address] [address] Kat Vyas, NILES 03/02/[address] [address] Kat Vyas RN 03/01/[address] [address] Becki Falcon NP fax notes/CADEN request/scopes 02/28/2025 External Device Data STL ABSTRACTION Provider, Abstract 02/27/2025 External Device Data STL ABSTRACTION Provider, Abstract 02/27/2025 External Device Data STL ABSTRACTION Provider, Abstract 02/27/2025 External Device Data STL ABSTRACTION Provider, Abstract 02/27/[address] [address] Becki Falcon NP Documentation 02/23/[address] [address] Becki Falcon NP Results 02/23/2025 External Device Data STL ABSTRACTION Provider, Abstract 02/23/2025 Results Follow-Up [address] [place] [address] Becki Falcon NP CBC WITH DIFFERENTIAL, FERRITIN, IRON, TIBC, AND PERCENT SATURATION, Additional followed-up results: 12 02/22/2025 10:30 AM CDT Office Visit [facility] Gastroenter[facility] [phone] Becki Falcon, NISHA Abdominal pain, unspecified abdominal location (Primary Dx); Anemia, chronic disease; Anasarca; Hepatomegaly; Postprandial abdominal pain in left upper quadrant 02/05/2025 Orders Only [address] [phone] Chrsi Parker DO Abdominal pain, unspecified abdominal location [...] on file 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 [place] [address] Becki Falcon NP [address] [facility] [address] [facility] [address] [place] [address] Health Maintenance Due Date Last [...] CDT) ALLERGEN BEEF <0.10 kU/L [facility], ALLERGEN BEEF (F27) CLASS 0 [facility], CARTAGENA (F88) IGE <0.10 kU/L [facility], ALLERGEN CARTAGENA (F88) CLASS 0 [facility], ALLERGEN PORK <0.10 kU/L [facility], ALLERGEN PORK (F26) CLASS 0 [facility], GALACTOSE - ALPHA -1, 3 - GALACTOSE, IGE <0.10 <0.10 kU/L [facility], Comment: Results above 0.1 kU/L indicate an allergen-specific IgE sensitization to eozxettfa-a-1,3-galactose, and such patients are at risk for [...] method. Additional information can be found at http://www.[employer] ALLERGY PANEL INTERP [facility], Comment: Specific Level of Allergen IGE [...] analytical performance characteristics have been determined by [facility]. It has not been cleared or approved by the U.S. Food and Drug Administration. This assay has been validated pursuant to the CLIA regulations and is used for clinical purposes. FASTING:NO FASTING: NO Test Performed at: [facility], [address] [place] [address] Maddie Chino MD,PhD,[place] Blood 02/22/2025 12:1 8 PM CDT 02/22/2025 12:19 PM CDT Becki Falcon ROD MILL OPERATOR CHEMISTRY ORDERABLES Final Resul t Performing Organization Address City/[facility]/ZIP Co de Phone Number [facility] [phone] [facility], [address] [place] [address] * TEST AUTHORIZATION (02/22/2025 12:18 PM CDT) TEST NAME COMPREHENSIVE METABOLIC [facility] TEST CODE [id number] [facility] CLIENT CONTACT NIKHIL Peck WNGLN Q [facility] SEE NOTE [facility] Comment: The laboratory testing on this patient was verbally requested or confirmed by the ordering physician or his or her authorized sales representative meats after contact with an employee of [facility]. Federal regulations require that we maintain on file written authorization for all laboratory testing. Accordingly we are asking that the ordering physician or his or her authorized sales representative meats sign a copy of this report and promptly return it to the client manager large law. Signature: SEE NOTE [facility] Comment: Fax number: [phone] FASTING:NO FASTING: NO Test Performed at: [facility] [address] [facility] [place] [address] Sheila Harper MD 02/22/2025 12:1 8 PM CDT 02/22/2025 12:19 PM CDT Becki Falcon ROD MILL OPERATOR CHEMISTRY ORDERABLES Final Resul t Performing Organization Address City/[facility] Co de Phone Number [facility] [phone] [facility] [address] [place] [address] * HEPATITIS B SURFACE ANTIGEN (02/22/2025 12:18 PM CDT) HEPATITIS B SURFACE AG NON-REACTI VE NON-REACTI VE [facility] Comment: For additional information, please refer to http://education.Geniu[employer]/faq/OEY599 (This link is being provided for informational/ educational purposes only.) Test Performed at: [facility] [address] [place] [address] Sheila Harper MD Blood 02/22/2025 12:1 8 PM CDT 02/22/2025 12:19 PM CDT Becki Falcon ROD MILL OPERATOR CHEMISTRY ORDERABLES Final Resul t Performing Organization Address [facility] Co de Phone Number [facility] [phone] [facility] [address] [place] [address] * TRANSGLUTAMINASE IGA ANTIBODY (02/22/2025 12:18 PM CDT) Pathologist [facility] TRANSGLUTAMINASE IGA AB <1.0 U/mL [facility] [place] Comment: Value Interpretation ----- <15.0 Antibody not detected > or = 15.0 Antibody detected FASTING:NO FASTING: NO Test Performed at: [facility] [address] Placido Tate Blood 02/22/2025 12:1 8 PM CDT 02/22/2025 12:19 PM CDT Becki Falcon ROD MILL OPERATOR CHEMISTRY ORDERABLES Final Resul t Performing Organization Address [facility] Co de Phone Number [facility] [phone] [facility] [address] [place] [address] * (ABNORMAL) IRON, TIBC, AND PERCENT SATURATION (02/22/2025 12:18 PM CDT) Pathologist [facility] IRON 62 50 - 180 mcg/dL [facility] TIBC 422 250 - 425 mcg/dL (calc) [facility] IRON % SATURATION 15(L) 20 - 48 % (calc) [facility] Comment: Test Performed at: [facility] [address] [place] [address] Sheila Harper MD Blood 02/22/2025 12:1 8 PM CDT 02/22/2025 12:19 PM CDT Becki Falcon ROD MILL OPERATOR CHEMISTRY ORDERABLES Final Resul t Performing Organization Address City/[facility]/ZIP Co de Phone Number [facility] [phone] [address] * HEPATITIS C ANTIBODY W REFLEX (02/22/2025 12:18 PM CDT) HEPATITIS C AB NON-REACTI VE NON-REACT [place] [facility] Comment: HCV antibody was non-reactive. There is no laboratory evidence of HCV infection. In most cases, no further action is required. However, if recent HCV exposure is suspected, a test for HCV RNA (test code 87334) is suggested. For additional information please refer to http://education.Geniuzz/faq/JXI47m7 (This link is being provided for informational/ educational purposes only.) Test Performed at: [facility] [address] [place] [address] Sheila Harper MD Blood 02/22/2025 12:1 8 PM CDT 02/22/2025 12:19 PM CDT Becki Falcon ROD MILL OPERATOR CHEMISTRY ORDERABLES Final Resul t [facility] [phone] [facility] [address] [place] [address] * CERULOPLASMIN (02/22/2025 12:18 PM CDT) CERULOPLASMIN 29 14 - 30 mg/dL [facility] Comment: Test Performed at: [facility] [address] [place] [address] Sheila Harper MD Blood 02/22/2025 12:1 8 PM CDT 02/22/2025 12:19 PM CDT Becki Falcon ROD MILL OPERATOR CHEMISTRY ORDERABLES Final Resul t [facility] [phone] [facility] [address] [place] [address] * (ABNORMAL) ALPHA 1 ANTITRYPSIN (02/22/2025 12:18 PM CDT) Pathologist [facility] ALPHA 1 ANTITRYPSIN 224(H) 83 - 199 mg/dL [facility] Comment: Test Performed at: [facility] [address] Sheila Harper MD Blood 02/22/2025 12:1 8 PM CDT 02/22/2025 12:19 PM CDT Becki Falcon ROD MILL OPERATOR CHEMISTRY ORDERABLES Final Resul t Performing Organization Address [facility]/ZIP Co de Phone Number [facility] [phone] [facility] [address] [place] [address] * (ABNORMAL) CBC WITH DIFFERENTIAL (02/22/2025 12:18 PM CDT) Pathologist [facility] WBC 4.6 3.8 - 10.8 Thousand/u L [...] Comment: FASTING:NO FASTING: NO Test Performed at: [facility] [address] [place] [address] Jose Rafael Mack Blood 02/22/2025 12:1 8 PM CDT 02/22/2025 12:19 PM CDT us Becki Falcon ROD MILL OPERATOR HEMATOLOGY ORDERABLES Final Resu lt [facility] [phone] [facility] RR [address] [place] [address] * VITAMIN D 25 HYDROXY (02/22/2025 12:18 PM CDT) VITAMIN D, 25 OH, TOTAL 36 30 - 100 ng/mL [facility] Comment: Vitamin D Status 25-OH Vitamin D: Deficiency: <20 ng/mL Insufficiency: 20 - 29 ng/mL Optimal: > or = 30 ng/mL For 25-OH Vitamin D testing on patients on D2-supplementation and patients for whom quantitation of D2 and D3 fractions is required, the [facility]) 25-OH VIT D, (D2,D3), LC/MS/MS is recommended: order code 77373 (patients >2yrs). See Note 1 Note 1 For additional information, please refer to http://education.Queue-it/faq/RGJ376 (This link is being provided for informational/ educational purposes only.) FASTING:NO FASTING: NO Test Performed at: [facility] [address] [place] [address] Sheila Harper MD Blood 02/22/2025 12:1 8 PM CDT 02/22/2025 12:19 PM CDT Becki Falcon ROD MILL OPERATOR CHEMISTRY ORDERABLES Final Resul t [facility] [phone] [facility] [address] [place] [address] * (ABNORMAL) C-REACTIVE PROTEIN (02/22/2025 12:18 PM CDT) CRP 15.0(H) <8.0 mg/L [facility] Comment: FASTING:NO FASTING: NO Test Performed at: [facility] [address] [place] [address] Sheila Harper MD Blood 02/22/2025 12:1 8 PM CDT 02/22/2025 12:19 PM CDT us Becki Danielm ROD MILL OPERATOR CHEMISTRY ORDERABLES Final Resul t Performing Organization Address [facility] Co de Phone Number [facility] [phone] [facility] [address] [facility] [place] [address] * ANKUR SCREEN W/REFLEX (02/22/2025 12:18 PM CDT) ANKUR SCREEN NEGATIVE NEGATIVE [facility] [place] Comment: ANKUR IFA is a first line screen for detecting the presence of up to approximately 150 autoantibodies in various autoimmune diseases. A negative ANKUR IFA result suggests an ANKUR-associated autoimmune disease is not present at this time, and does not reflex further. If there is high clinical suspicion for Sjogren's syndrome, testing for anti-SS-A/Ro antibody should be considered. Anti-Alesasndra-1 antibody should be considered for clinically suspected inflammatory myopathies. AC-0: Negative International Consensus on ANKUR Patterns (https://doi.org/10.1515/ibpt-8135-8781) For additional information, please refer to http://education.Queue-it/faq/APE494 (This link is being provided for informational/ educational purposes only.) FASTING:NO FASTING: NO Test Performed at: [facility] [address] [facility] [place] [address] Sheila Harper MD Blood 02/22/2025 12:1 8 PM CDT 02/22/2025 12:19 PM CDT Becki Falcon ROD MILL OPERATOR CHEMISTRY ORDERABLES Final Resul t Performing Organization Address City/[facility]/ZIP Co de Phone Number [facility] [phone] [facility] [address] [facility] [place] [address] * (ABNORMAL) BRAIN NATRIURETIC PEPTIDE, BNP OR PROBNP (02/22/2025 12:18 PM CDT) PROBNP, N TERMINAL 1,063(H) <125 pg/mL [facility] [facility] Comment: FASTING:NO FASTING: NO Test Performed at: [facility] [address] [place] [address] Sheila Harper MD Blood 02/22/2025 12:1 8 PM CDT 02/22/2025 12:19 PM CDT Becki Falcon ROD MILL OPERATOR CHEMISTRY ORDERABLES Final Resul t Performing Organization Address City/[facility]/ZIP Co de Phone Number [facility] [phone] [facility] [address] * FERRITIN (02/22/2025 12:18 PM CDT) Pathologist [facility] FERRITIN 30 24 - 380 ng/mL [facility] Comment: Test Performed at: [facility] [address] Sheila Harper MD Blood 02/22/2025 12:1 8 PM CDT 02/22/2025 12:19 PM CDT Becki Falcon NP CHEMISTRY ORDERABLES Final Resul t Performing Organization Address [facility]/ZIP Co de Phone Number [facility] [phone] [facility] [place] [address] * (ABNORMAL) COMPREHENSIVE METABOLIC PANEL (02/22/2025 12:18 PM CDT) Pathologist [facility] GLUCOSE 166(H) 65 - 139 mg/dL [facility] [...] Comment: FASTING:NO FASTING: NO Test Performed at: [facility] [address] [place] [address] Sheila Harper MD 02/22/2025 12:1 8 PM CDT 02/22/2025 12:19 PM CDT Becki Falcon ROD MILL OPERATOR CHEMISTRY ORDERABLES Final Resul t [facility] [phone] [facility] Meludia-[address] [address] * ENDOSCOPY, SIGMOID (01/26/2020 12:00 AM CDT) Sgf Scanning GI PROCEDURE ORDERABLES Final Re sult from Last 3 Months or Most Recently Relevant to Health Maintenance Insurance MEDICARE PART A AND B [place] Advance Directives For more information, please contact: [phone] Documents on File Type Date Recorded Patient Data Processing Equipment Repairer Expl anation Advance Directive POA 02/22/2025 10:00 AM Advance Directive POA Care Teams Returner Relationship Specialty Start Date End Date Cuba Solano MD PCP - General 07/11/09
--- OUTSIDE RECORDS SUMMARY | 2025-04-21 20:09 | XMS_ITS | Encounter Summary ---
Author Organization [facility] Address [address] [place] [address] Care Team Providers Care Narrow Fabric Calenderer Name Role Phone Cuba Solano MD Primary Care Provider [phone] [phone] Encounter Details Date Type Department Care Team (Late st Contact Info) Description 11/05/2005 Outpatient Historical [facility] Family Medicine [place] [id number] [address] Social History Tobacco Use Types Packs/Day Years Used Date Smoking Tobacco: Never Assessed Sex and Gender Information Value Date Recorded Sex Assigned at Not on file 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
--- OUTSIDE RECORDS SUMMARY | 2025-04-21 20:09 | XMS_ITS | Encounter Summary ---
Author Organization [facility] Address [address] [place] [address] Care Team Providers Care Skilled Nursing Facilities Professional Name Role Phone Cuba Solano MD Primary Care Provider [phone] [phone] Encounter Details Date Type Department Care Team (Late st Contact Info) Description 09/02/2004 Outpatient Historical [facility] Family Medicine [place] [id number] [address] Social History Tobacco Use Types Packs/Day Years Used Date Smoking Tobacco: Never Assessed Sex and Gender Information Value Date Recorded Sex Assigned at Not on file 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
--- OUTSIDE RECORDS SUMMARY | 2025-04-21 20:09 | XMS_ITS | Encounter Summary ---
Author Organization [facility] Address [address] [place] [address] Care Team Providers Care Solar Energy Installation Manager Name Role Phone Cuba Solano MD Primary Care Provider [phone] [phone] Encounter Details Date Type Department Care Team (Latest Contact Info) Description 06/18/2006 Outpatient Historical [facility] Cardiovascular Services [address] [place] [address] Keyona Mccloud, LUCIEN NO ADDRESS ON FILE Supraventricular Premature Beats (Primary Dx) Social History Tobacco Use Types Packs/Day Years Used Date Smoking Tobacco: Never Assessed Sex and Gender Information Value Date Recorded Sex Assigned at Not on file 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
--- OUTSIDE RECORDS SUMMARY | 2025-04-21 20:09 | XMS_ITS | Continuity of Care Document ---
Author Organization [place] - Aravind Moncada [facility], Chas, [facility]) Address [address] debra [facility] [address] Assessment No assessment recorded. Plan of Treatment [...] By Organization Details Last Modified Time 02/08/2025 [id number] Planning to paracentesis today. Extremely abdominal swelling. Sugars too high, increase aspart to 60 units with meals. Planning to follow up next week. [email or web address] Not available 02/08/2025 14:32:28 Reason for Referral None Reported. Results Created Date Observation Date Name Description Value Unit Range Abnormal Flag Note LastModifiedBy Organization Detail LastModifiedTime 02/09/20 25 02/08/2025 imagi ng/di agnos tic resul t No observ ation record ed. [email or web address] [facility] [address] [place], [address], 02/12/2025 11:57:54 Result Notes None recorded. Problems Name Problem SNOMED Code Status Onset Date Resolution Date Notes Provider Name and Address Organization Details Recorded Time Essential hypertens ion 01782294 Active 2007 ESSENTIAL HYPERTENS ION; 8 2:16PM by Karla Joseph LPN, Office Visit; Promoted; acuity set as *; Not Available [facility] 3 03:17:47 Allergic rhinitis 83795322 Active 2007 ALLERGIC RHINITIS; 8 2:16PM by Karla Joseph LPN, Office Visit; Promoted; acuity set as *; Not Available [facility] 3 03:17:47 Persisten t insomnia 915120374 Active 2007 PERSISTEN T INSOMNIA; 8 2:16PM by Karla Joseph LPN, Office Visit; Promoted; acuity set as *; Not Available [facility] 3 03:17:52 Fracture of ankle 14629899 Active 2007 Ankle Fracture; 8 2:16PM by Karla Joseph LPN, Office Visit; Promoted; acuity set as *; Not Available [facility] 3 03:17:53 Peptic ulcer 57076615 Active 2007 PEPTIC ULCER; 8 2:16PM by Karla oJseph LPN, Office Visit; Promoted; acuity set as *; Not Available [facility] 3 03:17:53 Type 1 diabetes mellitus 82205151 Active 2007 DIABETES MELLITUS TYPE I; 8 2:16PM by Karla Joseph LPN, Office Visit; Promoted; acuity set as *; Not Available [facility] 3 03:17:58 Constipat ion 78054566 Active 2007 CONSTIPAT ION; 8 2:16PM by Karla Joseph LPN, Office Visit; Promoted; acuity set as *; Not Available [facility] 3 03:17:58 Amputated above knee 848942190 Active 2007 ABOVE KNEE AMPUTATIO N STATUS; 8 2:16PM by Karla Joseph LPN, Office Visit; Promoted; acuity set as *; Not Available [facility] 3 03:17:59 History of depressio n 576956243 Active 2007 DEPRESSIO N, NOS; 8 2:16PM by Karla Joseph LPN, Office Visit; Promoted; acuity set as *; Not Available [facility] 3 03:18:00 Hyperglyc emia due to type 2 diabetes mellitus 20580035401 9109 Active 2023 RASHEED [facility] 4 13:09:52 Chronic back pain greater than three months duration 69470428839 2 Active 2023 NATHANAEL tavarez, [facility] 4 15:23:19 Blepharit is of right eyelid 39916394975 9103 Active 2024 NATHANAEL tavarez, [facility] 5 15:11:18 Congestiv e heart failure 63557353 Active 2024 NATHANAEL tavarez, [facility] 5 16:21:48 Acute right otitis media 453671329 Active [facility] 5 16:28:04 Pain of right shoulder joint 55153446788 258496 Active 2024 [facility] 5 17:59:42 Hepatospl enomegaly 94452275 Active 2024 NATHANAEL VICTORIA [facility], [facility] 5 14:35:12 Thrombocy topenic disorder 691450666 Active 2024 NATHANAEL VICTORIA [facility] 5 14:35:13 Bilateral lower limb edema 369037154 Active 2024 [facility] 5 15:35:25 Acute urinary tract infection 388668934 Active 2024 NATHANAEL VICTORIA [facility] 5 14:32:57 Sarcoidos is 75066348 Active 2024 NATHANAEL VICTORIA [facility] 5 14:33:01 Problem Notes None recorded. Medical Equipment None Reported. Allergies Allergen ID Allergen Name Allergen Category Reaction Reaction Severity Criticality Documentation Date Start Date Code Code System Note Provider Name and Address Organization Details Recorded Time 57977 Product containin g penicilli n (product) medicatio n Not available Not available Not available 11/28/2022 84416 8001 SNOMED Comme nt: Recor ded 09/01 2:16P M by Briseida Joseph LPN, Offic e Visit ; Promo joanne; Shruthi wade ce: *; ; Not Available [facility] 3 02:25:17 88769 Substance with sulfonami de structure and antibacte rial mechanism of action (substanc e) medicatio n Not available Not available Not available 03/22/2025 78670 8003 SNOMED Not Available david [employer] - prod 5 06:48:45 19515 sulfameth oxazole / trimethop rim medicatio n rash Not available [facility] 03/22/20252007 59052 RxNorm Not Available david [employer] - prod 5 06:50:41 Medications [...] Address Organization Details Last Updated DateTime 5 618348. 58 g 74 /min 20 /min 98 [degF] 96 % 143/72 mm[Hg] NATHANAEL VICTORIA [facility] 5 14:30:11 Social History None recorded. Functional Status None recorded. Mental Status None recorded. Family History Nothing Reported. Medical History No medical history recorded. Immunizations Vaccine Type Date Status Note Provider Nam e and Address Organization Details Recorded Time influenza, unspecified formulation 8 completed Not Available [facility] 04/17/2025 09:08:23 Influenza, split virus, trivalent, preservative 0 completed Not Available [facility] 04/17/2025 09:08:23 COVID-19, mRNA, LNP-S, PF, 100 mcg/0.5mL dose or 50 mcg/0.25mL dose 1 completed Not Available [facility] 04/17/2025 09:08:23 COVID-19, mRNA, LNP-S, PF, 100 mcg/0.5mL dose or 50 mcg/0.25mL dose 1 completed Not Available [facility] 04/17/2025 09:08:23 Influenza, split virus, quadrivalent, PF 1 completed Not Available [facility] 04/17/2025 09:08:23 COVID-19, mRNA, LNP-S, PF, 100 mcg/0.5mL dose or 50 mcg/0.25mL dose 1 completed Not Available [facility] 04/17/2025 09:08:23 Influenza, split virus, quadrivalent, PF 2 completed Not Available [facility] 04/17/2025 09:08:23 Influenza, split virus, quadrivalent, PF 3 completed Not Available [facility] 04/17/2025 09:08:23 Influenza, split virus, trivalent, preservative 4 completed Not Available [facility] 04/17/2025 09:08:23 COVID-19, mRNA, LNP-S, PF, 50 mcg/0.5 mL completed Not Available [facility] 04/17/2025 09:08:23 Past Encounters Encounter ID Performer Location Encounter Start Date Encounter Closed Date Diagnosis/Indication Diagnosis SNOMED-CT Code Diagnosis ICD10 Code Diagnosis IMO Codes Diagnosis Note [id number] Chris Parker DO [facility] ([facility]) [address] [place] [address] 01/11/2025 12:12:21 01/16/2025 10:56:12 Hyperglycemia due to type 2 diabetes mellitus 3387852622 82948 E11.65 Z79.4 [id number] Chris Parker DO [facility]) [address] [place] [address] 01/15/2025 12:18:30 01/17/2025 08:49:31 Type 1 diabetes mellitus 55879073 E10.9 Hepatosplenomegaly 06985 000 R16.2 39326 Pneumonia 521580192 J18. 9 [id number] [id number] Chris Parker DO [facility] ([facility]) [address] [place] [address] 01/18/2025 09:41:48 01/23/2025 16:25:08 [id number] Chris Parker DO [facility] ([facility]) [address] [place] [address] 01/22/2025 15:25:32 01/24/2025 09:26:09 Congestive heart failure 82148026 I50.9 Type 1 brad betes mellitus 79193965 E10.9 Hepatosplenomegaly 19261 000 R16.2 96690 [id number] Chris Parker DO [facility] ([facility]) [address] [place] [address] 02/05/2025 14:15:56 02/06/2025 16:50:40 Hepatosplenomegaly 01347997 R16.2 79862 Ascites 264269574 R18.8 137739 Pancytopenia 526245567 D 61.818 86991 [id number] Chris Parker DO [facility] ([facility]) [address] [place] [address] 02/08/2025 13:43:34 02/13/2025 12:53:21 Hyperglycemia due to type 2 diabetes mellitus 1987606166 94664 E11.65 Z79.4 Hepatosplenomegaly 23984 000 R16.2 45617 Health Concerns Section Related Observation LastModified by Organization Detai ls LastModified Time None Recorded Concern Status LastModified by Organization Details LastModified Time None Recorded Payers Encounter Date Sequence Insurance Name Policy Number Policy Pate Covered Member ID Pate Member ID Guarantor Name 02/08/2025 1 [place] Marciano Alonso [id number] Marciano Alonso 02/08/2025 2 [place] Marciano Alonso [id number] Marciano Alonso Notes Date Note Type Note Provider Name and Address Organization Details Recorded Time 02/08/2025 text/html COPDReported by PatientHPI:For associated symptoms, patient reportsobesity. For onset/timing, patient reportsmultiple times per day. For duration, patient reportshas noted for years.ROS as noted in the HPI Planning to go for paracentesis. Chris Parker DO [address] [place] [address], [address], [facility], Chas 02/11/2025 17:17:58
--- OUTSIDE RECORDS SUMMARY | 2025-04-21 20:09 | XMS_ITS | Encounter Summary ---
Author Organization [facility] Address [address] [place] [address] Care Team Providers Care Industrial Relations Representative Name Role Phone Cuba Solano MD Primary Care Provider [phone] [phone] Encounter Details Date Type Department Care Team (Latest Contact Info) Description 09/03/2004 Outpatient Historical [facility] Family Medicine Angelica [facility] [address] [address] Huey Upton Jr., MD [address] [place] [address] 248 [facility] [address] [place] [address] DIABETES MELLITUS TYPE II-UNCOMPL (CMS/HCC) (Primary Dx); JOINT PAIN-L/LEG Social History Tobacco Use Types Packs/Day Years Used Date Smoking Tobacco: Never Assessed Sex and Gender Information Value Date Recorded Sex Assigned at Not on file 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
--- OUTSIDE RECORDS SUMMARY | 2025-04-21 20:09 | XMS_ITS | Encounter Summary ---
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
--- OUTSIDE RECORDS SUMMARY | 2025-04-21 20:09 | XMS_ITS | Encounter Summary ---
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
--- OUTSIDE RECORDS SUMMARY | 2025-04-21 20:09 | XMS_ITS | Encounter Summary ---
Author Organization [facility] Address [address] [place] [address] Care Team Providers Care Extrusion Line Operator Name Role Phone Cuba Solano MD Primary Care Provider [phone] [phone] Encounter Details Date Type Department Care Team (Latest Contact Info) Description 06/06/2004 Outpatient Historical [facility] [address] [place] [address] [place] [address] Frances Davies, MANAGER DOCUMENTATION [address] [place] [address] HYPERSOMNI W SLEEP APNEA (Primary Dx) Social History Tobacco Use Types Packs/Day Years Used Date Smoking Tobacco: Never Assessed Sex and Gender Information Value Date Recorded Sex Assigned at Not on file 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
--- OUTSIDE RECORDS SUMMARY | 2025-04-21 20:09 | XMS_ITS | Continuity of Care Document ---
Author Organization [place] - Aravind Barboza [facility] Mikhail, Chas, [facility] ([facility]) Address [address] [place] [address] Assessment No assessment recorded. Plan of Treatment [...] By Organization Details Last Modified Time 01/22/2025 [id number] Seen in the ER over the weekend [...] resul t No observ ation record ed. [email or web address] [facility] [address] [place], [address], 02/12/2025 11:57:54 Result Notes None recorded. Problems Name Problem SNOMED Code Status Onset Date Resolution Date Notes Provider Name and Address Organization Details Recorded Time Essential hypertens ion 97704074 Active 2007 ESSENTIAL HYPERTENS ION; 8 2:16PM by Karla Joseph LPN, Office Visit; Promoted; acuity set as *; Not Available [facility] 3 03:17:47 Allergic rhinitis 32573168 Active 2007 ALLERGIC RHINITIS; 8 2:16PM by Karla Joseph LPN, Office Visit; Promoted; acuity set as *; Not Available [facility] 3 03:17:47 Persisten t insomnia 870188681 Active 2007 PERSISTEN T INSOMNIA; 8 2:16PM by Karla Joseph LPN, Office Visit; Promoted; acuity set as *; Not Available [facility] 3 03:17:52 Fracture of ankle 27852218 Active 2007 Ankle Fracture; 8 2:16PM by Karla Joseph LPN, Office Visit; Promoted; acuity set as *; Not Available [facility] 3 03:17:53 Peptic ulcer 85120423 Active 2007 PEPTIC ULCER; 8 2:16PM by Karla Joseph LPN, Office Visit; Promoted; acuity set as *; Not Available [facility] 3 03:17:53 Type 1 diabetes mellitus 96793969 Active 2007 DIABETES MELLITUS TYPE I; 8 2:16PM by Karla Joseph LPN, Office Visit; Promoted; acuity set as *; Not Available [facility] 3 03:17:58 Constipat ion 81889238 Active 2007 CONSTIPAT ION; 8 2:16PM by aKrla Joseph LPN, Office Visit; Promoted; acuity set as *; Not Available [facility] 3 03:17:58 Amputated above knee 662207228 Active 2007 ABOVE KNEE AMPUTATIO N STATUS; 8 2:16PM by Karla Joseph LPN, Office Visit; Promoted; acuity set as *; Not Available [facility] 3 03:17:59 History of depressio n 497062291 Active 2007 DEPRESSIO N, NOS; 8 2:16PM by Karla Joseph LPN, Office Visit; Promoted; acuity set as *; Not Available [facility] 3 03:18:00 Hyperglyc emia due to type 2 diabetes mellitus 50630810278 9109 Active 2023 NATHANAEL tavarez, [facility] 4 13:09:52 Chronic back pain greater than three months duration 82942662389 2 Active 2023 NATHANAEL tavarez, [facility] 4 15:23:19 Blepharit is of right eyelid 90500968170 9103 Active 2024 NATHANAEL tavarez, [facility] 5 15:11:18 Congestiv e heart failure 44535415 Active 2024 NATHANAEL tavarez, [facility] 5 16:21:48 Acute right otitis media 694080526 Active [facility] 5 16:28:04 Pain of right shoulder joint 24443076009 585943 Active 2024 NATHANAEL tavarez, [facility] 5 17:59:42 Hepatospl enomegaly 06529838 Active 2024 [facility] 5 14:35:12 Thrombocy topenic disorder 653884702 Active 2024 [facility] 5 14:35:13 Bilateral lower limb edema 082912803 Active 2024 MARLON GRAJEDA [facility] 5 15:35:25 Acute urinary tract infection 251101053 Active 2024 [facility] 5 14:32:57 Sarcnilo is 14401633 Active 2024 NATHANAEL FISHER [facility], Chas 5 14:33:01 Problem Notes None recorded. Medical Equipment None Reported. Allergies Allergen ID Allergen Name Allergen Category Reaction Reaction Severity Criticality Documentation Date Start Date Code Code System Note Provider Name and Address Organization Details Recorded Time 34121 Product containin g penicilli n (product) medicatio n Not available Not available Not available 11/28/2022 67960 8001 SNOMED Comme nt: Recor ded 09/01 2:16P M by Briseida Joseph LPN, Offic e Visit ; Promo joanne; Shruthi wade ce: *; ; Not Available [facility] 3 02:25:17 53586 Substance with sulfonami de structure and antibacte rial mechanism of action (substanc e) medicatio n Not available Not available Not available 03/22/2025 14776 8003 SNOMED Not Available david - [employer] - prod 5 06:48:45 82543 sulfameth oxazole / trimethop rim medicatio n rash Not available [facility] 03/22/20252007 84307 RxNorm Not Available david - External Data [...] Recorded 8 2:43PM by Jory George CMT, HistorNanapi l Summary; Refill Quantity: 0; Not Available [...] Recorded 8 2:43PM by Jory George CMT, HistorNanapi l Summary; Refill Quantity: 0; Not Available [...] Address Organization Details Last Updated DateTime 5 162476. 51 g 90 /min 25 /min 98.7 [degF] 96 % 126/76 mm[Hg] NATHANAEL VICTORIA [facility], [facility] 5 17:28:46 Social History None recorded. Functional Status None recorded. Mental Status None recorded. Family History Nothing Reported. Medical History No medical history recorded. Immunizations Vaccine Type Date Status Note Provider Nam e and Address Organization Details Recorded Time influenza, unspecified formulation 8 completed Not Available [facility] 04/17/2025 09:08:23 Influenza, split virus, trivalent, preservative 0 completed Not Available [facility] 04/17/2025 09:08:23 COVID-19, mRNA, LNP-S, PF, 100 mcg/0.5mL dose or 50 mcg/0.25mL dose 1 completed Not Available [facility] 04/17/2025 09:08:23 COVID-19, mRNA, LNP-S, PF, 100 mcg/0.5mL dose or 50 mcg/0.25mL dose 1 completed Not Available [facility] 04/17/2025 09:08:23 Influenza, split virus, quadrivalent, PF 1 completed Not Available [facility] 04/17/2025 09:08:23 COVID-19, mRNA, LNP-S, PF, 100 mcg/0.5mL dose or 50 mcg/0.25mL dose 1 completed Not Available [facility] 04/17/2025 09:08:23 Influenza, split virus, quadrivalent, PF 2 completed Not Available [facility] 04/17/2025 09:08:23 Influenza, split virus, quadrivalent, PF 3 completed Not Available [facility] 04/17/2025 09:08:23 Influenza, split virus, trivalent, preservative 4 completed Not Available [facility] 04/17/2025 09:08:23 COVID-19, mRNA, LNP-S, PF, 50 mcg/0.5 mL 5 completed Not Available [facility] 04/17/2025 09:08:23 Past Encounters Encounter ID Performer Location Encounter Start Date Encounter Closed Date Diagnosis/Indication Diagnosis SNOMED-CT Code Diagnosis ICD10 Code Diagnosis IMO Codes Diagnosis Note [id number] Chris Parker DO [facility]) [address] [place], [place] [address] 01/11/2025 12:12:21 01/16/2025 10:56:12 Hyperglycemia due to type 2 diabetes mellitus 5743551698 36882 E11.65 Z79.4 [id number] Chris Parker DO [facility]) [address] [place] [address] 01/15/2025 12:18:30 01/17/2025 08:49:31 Type 1 diabetes mellitus 76481881 E10.9 Hepatosplenomegaly 22066 000 R16.2 47585 Pneumonia 706819866 J18. 9 [id number] Chris Parker DO [facility]) [address] [place] [address] 01/18/2025 09:41:48 01/23/2025 16:25:08 [id number] Chris Parker [facility]) [address] [place] [address] 01/22/2025 15:25:32 01/24/2025 09:26:09 Congestive heart failure 31132546 I50.9 Type 1 brad betes mellitus 28683392 E10.9 Hepatosplenomegaly 58250 000 R16.2 04632 Health Concerns Section Related Observation LastModified by Organization Detai ls LastModified Time None Recorded Concern Status LastModified by Organization Details LastModified Time None Recorded Payers Encounter Date Sequence Insurance Name Policy Number Policy Pate Covered Member ID Pate Member ID Guarantor Name 01/22/2025 1 [place] Marciano Alonso [id number] Marciano Alonso 01/22/2025 2 [place] Marciano Alonso [id number] Marciano Recinos [place] Notes Date Note Type Note Provider Name and Address Organization Details Recorded Time 01/22/2025 text/html COPDReported by PatientHPI:For associated symptoms, patient reportsobesity. For onset/timing, patient reportsmultiple times per day. For duration, patient reportshas noted for years.ROS as noted in the HPI ER follow up, discuss care and weight gain. Chris Parker, DO [address] [place] [address], [address], RAS[facility]ED [facility] 01/23/2025 14:50:00
--- OUTSIDE RECORDS SUMMARY | 2025-04-21 20:09 | XMS_ITS | Encounter Summary ---
Author Organization [facility] Address [address] [place] [address] Care Team Providers Care Sales Representative Girls' Apparel Name Role Phone Cuba Solano MD Primary Care Provider +1 [phone] Encounter Details Date Type Department Care Team (Latest Contact Info) Description 06/09/2006 Outpatient Historical [facility] Orthopedics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
--- OUTSIDE RECORDS SUMMARY | 2025-04-21 20:09 | XMS_ITS | Encounter Summary ---
Author Organization [facility] Address [address] [place] [address] Care Team Providers Care Information Services Manager Name Role Phone Cuba Solano MD Primary Care Provider +1 [phone] Encounter Details Date Type Department Care Team (Latest Contact Info) Description 12/02/2005 Outpatient Historical [facility] Family Medicine Angelica [facility] [address] [address] Huey Upton Jr., MD [address] [place] [address] 248 [facility] 140 [place] [address] DM w/o Complication Type II (CMS/HCC) (Primary Dx); Other and Unspecified Hyperlipidemia; Unspecified Essential Hypertension; Pain in Joint, Shoulder Region Social History Tobacco Use Types Packs/Day Years Used Date Smoking Tobacco: Never Assessed Sex and Gender Information Value Date Recorded Sex Assigned at Not on file 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
--- OUTSIDE RECORDS SUMMARY | 2025-04-21 20:09 | XMS_ITS | Encounter Summary ---
Author Organization [facility] Address [address] [place] [address] Care Team Providers Care Repeat Photocomposing Machine Operator Name Role Phone Cuba Solano MD Primary Care Provider +1 [phone] Encounter Details Date Type Department Care Team (Latest Contact Info) Description 08/28/2005 Outpatient Historical [facility] Family Medicine Angelica [facility] [address] [address] Huey Upton Jr., MD [address] [place] [address] 248 [facility] 140 [place] [address] Pain in Joint, Shoulder Region (Primary Dx); Lumbago Social History Tobacco Use Types Packs/Day Years Used Date Smoking Tobacco: Never Assessed Sex and Gender Information Value Date Recorded Sex Assigned at Not on file Legal Sex Male 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
--- OUTSIDE RECORDS SUMMARY | 2025-04-21 20:09 | XMS_ITS | Encounter Summary ---
Author Organization [facility] Address [address] [place] [address] Care Team Providers Care Medical Records Receptionist Name Role Phone Cuba Solano MD Primary Care Provider +1 [phone] Encounter Details Date Type Department Care Team (Latest Contact Info) Description 11/25/2005 Outpatient Historical [facility] Orthopedics- 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
--- OUTSIDE RECORDS SUMMARY | 2025-04-21 20:09 | XMS_ITS | Encounter Summary ---
Author Organization [facility] Address [address] [place] [address] Care Team Providers Care Welding Machine Operator Electroslag Name Role Phone Cuba Solano MD Primary Care Provider +1 [phone] Encounter Details Date Type Department Care Team (Latest Contact Info) Description 10/21/2004 Outpatient Historical [facility] Family Medicine Angelica [facility] [address] [address] Huey Upton Jr., MD [address] [place] [address] 248 [facility] 140 [place] [address] ACUTE SINUSITIS NOS (Primary Dx) Social History Tobacco Use Types Packs/Day Years Used Date Smoking Tobacco: Never Assessed Sex and Gender Information Value Date Recorded Sex Assigned at Not on file Legal Sex Male 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
--- OUTSIDE RECORDS SUMMARY | 2025-04-21 20:09 | XMS_ITS | Encounter Summary ---
Author Organization [facility] Address [address] [place] [address] Care Team Providers Care Maple Syrup Maker Name Role Phone Cuba Solano MD Primary Care Provider +1 [phone] Encounter Details Date Type Department Care Team (Latest Contact Info) Description 07/27/2006 Outpatient Historical [facility] Orthopedics- [address] [place] [address] [place] [address] Ash Lopez III, MD [address] [facility] 60 [place] [address] Adhesive Capsulit Shlder (Primary Dx) Social History Tobacco Use Types Packs/Day Years Used Date Smoking Tobacco: Never Assessed Sex and Gender Information Value Date Recorded Sex Assigned at Not on file Legal Sex Male 2:49 AM RESIDENT MEDICAL OFFICER Gender Identity Not on file Sexual Orientation Not on file documented as of this encounter Plan of Treatment Not on file documented as of this encounter Visit Diagnoses Diagnosis Adhesive capsulit shlder- Primary Adhesive capsulitis of shoulder documented in this encounter Care Teams Maple Syrup Maker Relationship Specialty Start Date End Date Cuba Solano MD PCP - General 07/11/09 documented as of this encounter
--- OUTSIDE RECORDS SUMMARY | 2025-04-21 20:09 | XMS_ITS | Encounter Summary ---
Author Organization [facility] Address [address] [place] [address] Care Team Providers Care Pharmacist Aide Name Role Phone Cuba Solano MD Primary Care Provider +1 [phone] Encounter Details Date Type Department Care Team (Latest Contact Info) Description 04/12/2006 Outpatient Historical [facility] Family Medicine Angelica [facility] [address] [address] Huey Upton Jr., MD [address] [place] [address] 248 [facility] 140 [place] [address] Dysphagia (Primary Dx); Unspecified Essential Hypertension Social History Tobacco Use Types Packs/Day Years Used Date Smoking Tobacco: Never Assessed Sex and Gender Information Value Date Recorded Sex Assigned at Not on file Legal Sex Male 2:49 AM CAMPAIGN ASSISTANT Gender Identity Not on file Sexual Orientation Not on file documented as of this encounter Plan of Treatment Not on file documented as of this encounter Visit Diagnoses Diagnosis Dysphagia- Primary Unspecified essential hypertension documented in this encounter Care Teams Pharmacist Aide Relationship Specialty Start Date End Date Cuba Solano MD PCP - General 07/11/09 documented as of this encounter
--- OUTSIDE RECORDS SUMMARY | 2025-04-21 20:09 | XMS_ITS | Encounter Summary ---
Author Organization [facility] Address [address] [place] [address] Care Team Providers Care Equip Tech Name Role Phone Cuba Solano MD Primary Care Provider +1 [phone] Encounter Details Date Type Department Care Team (Latest Contact Info) Description 06/26/2004 Outpatient Historical [facility] Family Medicine Angelica [place] [address] [address] Keyona Mccloud, SCOWMAN NO ADDRESS ON FILE ALLERGY, UNSPECIFIED (Primary Dx) Social History Tobacco Use Types Packs/Day Years Used Date Smoking Tobacco: Never Assessed Sex and Gender Information Value Date Recorded Sex Assigned at Not on file Legal Sex Male 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
--- OUTSIDE RECORDS SUMMARY | 2025-04-21 20:09 | XMS_ITS | Encounter Summary ---
Author Organization [facility] Address [address] [place] [address] Care Team Providers Care Pulp House Supervisor Name Role Phone Cuba Solano MD Primary Care Provider +1 [phone] Encounter Details Date Type Department Care Team (Latest Contact Info) Description 06/11/2004 Outpatient Historical [facility] Family Medicine Angelica [facility] [address] [address] Huey Upotn Jr., MD [address] [place] [address] 248 [facility] 140 [place] [address] DIABETES MELLITUS TYPE II-UNCOMPL (CMS/HCC) (Primary Dx); JOINT PAIN-L/LEG Social History Tobacco Use Types Packs/Day Years Used Date Smoking Tobacco: Never Assessed Sex and Gender Information Value Date Recorded Sex Assigned at Not on file Legal Sex Male 2:49 AM 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
--- OUTSIDE RECORDS SUMMARY | 2025-04-21 20:09 | XMS_ITS | Encounter Summary ---
Author Organization [facility] Address [address] [place] [address] Care Team Providers Care School Resource Officer Name Role Phone Cuba Solano MD Primary Care Provider +1 [phone] Encounter Details Date Type Department Care Team (Latest Contact Info) Description 04/23/2006 Outpatient Historical [facility] Orthopedics- 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
--- OUTSIDE RECORDS SUMMARY | 2025-04-21 20:09 | XMS_ITS | Encounter Summary ---
Author Organization [facility] Address [address] [place] [address] Care Team Providers Care Assembly Stock Supervisor Name Role Phone Cuba Solano MD Primary Care Provider +1 [phone] Encounter Details Date Type Department Care Team (Latest Contact Info) Description 05/27/2006 Outpatient Historical [facility] Family Medicine Angelica [place] [address] [address] Keyona Mccloud, LUCIEN NO ADDRESS ON FILE Other B-Complex Deficiencies (Primary Dx) Social History Tobacco Use Types Packs/Day Years Used Date Smoking Tobacco: Never Assessed Sex and Gender Information Value Date Recorded Sex Assigned at Not on file Legal Sex Male 2:49 AM OFFSET PRESSMAN Gender Identity Not on file Sexual Orientation Not on file documented as of this encounter Plan of Treatment Not on file documented as of this encounter Visit Diagnoses Diagnosis Other B-complex deficiencies- Primary documented in this encounter Care Teams Assembly Stock Supervisor Relationship Specialty Start Date End Date Cuba Solano MD PCP - General 07/11/09 documented as of this encounter
--- OUTSIDE RECORDS SUMMARY | 2025-04-21 20:09 | XMS_ITS | Encounter Summary ---
Author Organization [facility] Address [address] [place] [address] Care Team Providers Care Towel Distributor Name Role Phone Cuba Solano MD Primary Care Provider +1 -[phone] Encounter Details Date Type Department Care Team (Latest Contact Info) Description 06/17/2006 Outpatient [facility] Family Medicine Angelica [place] [address] [address] Keyona Mccloud, LUCIEN NO ADDRESS ON FILE Unspecified Otitis Media (Primary Dx); Unspecified Tachycardia; Palpitations Social History Tobacco Use Types Packs/Day Years Used Date Smoking Tobacco: Never Assessed Sex and Gender Information Value Date Recorded Sex Assigned at Not on file Legal Sex Male 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
--- OUTSIDE RECORDS SUMMARY | 2025-04-21 20:09 | XMS_ITS | Encounter Summary ---
Author Organization [facility] Address [address] [place] [address] Care Team Providers Care Sprinkler Inspector Name Role Phone Cuba Solano MD Primary Care Provider +1 -[phone] Encounter Details Date Type Department Care Team (Latest Contact Info) Description 10/21/2005 Outpatient Historical [facility] Orthopedics- [address] [place] [address] [place] [address] Ash Lopez III, MD [address] [place] [address] Unspecified Disorders of Bursae and Tendons in Shoulder Region (Primary Dx); Pain in Joint, Shoulder Region Social History Tobacco Use Types Packs/Day Years Used Date Smoking Tobacco: Never Assessed Sex and Gender Information Value Date Recorded Sex Assigned at Not on file Legal Sex Male 2:49 AM CONSULTANT TECHNOLOGY Gender Identity Not on file Sexual Orientation Not on file documented as of this encounter Plan of Treatment Not on file documented as of this encounter Visit Diagnoses Diagnosis Disorders of bursae and tendons in shoulder region, unspecified- Primary Pain in joint, shoulder region documented in this encounter Care Teams Sprinkler Inspector Relationship Specialty Start Date End Date Cuba Solano MD PCP - General 07/11/09 documented as of this encounter
--- OUTSIDE RECORDS SUMMARY | 2025-04-21 20:09 | XMS_ITS | Encounter Summary ---
Author Organization [facility] Address [address] [place] [address] Care Team Providers Care Engineering Job Titles Name Role Phone Cuba Solano MD Primary Care Provider +1 -[phone] Encounter Details Date Type Department Care Team (Late st Contact Info) Description 08/04/2005 Outpatient Historical [facility] Family Medicine Angelica [place] [address] [address] Social History Tobacco Use Types Packs/Day Years Used Date Smoking Tobacco: Never Assessed Sex and Gender Information Value Date Recorded Sex Assigned at Not on file Legal Sex Male 2:49 AM COW TRIMMER Gender Identity Not on file Sexual Orientation Not on file documented as of this encounter Plan of Treatment Not on file documented as of this encounter Visit Diagnoses Not on filedocumented in this encounter Care Teams Engineering Job Titles Relationship Specialty Start Date End Date Cuba Solano MD PCP - General 07/11/09 documented as of this encounter
--- OUTSIDE RECORDS SUMMARY | 2025-04-21 20:09 | XMS_ITS | Encounter Summary ---
Author Organization [facility] Address [address] [place] [address] Care Team Providers Care Photocopying Equipment Mechanic Name Role Phone Cuba Solano MD Primary Care Provider +1 -[phone] Encounter Details Date Type Department Care Team (Latest Contact Info) Description 07/15/2006 Outpatient Historical [facility] [address] [place] [address] [facility] 100 [place] [address] Ash Lopez III, MD [address] [place] [address] Adhesive Capsulitis of Shoulder (Primary Dx) Social History Tobacco Use Types Packs/Day Years Used Date Smoking Tobacco: Never Assessed Sex and Gender Information Value Date Recorded Sex Assigned at Not on file Legal Sex Male 2:49 AM FLUID PUMP OPERATOR Gender Identity Not on file Sexual [...] CARE TESTING Edited Performing Organization Address [facility] Co de Phone Number INTERFACE SYSTEM Refer to clinic/hospital department * (ABNORMAL) POC GLUCOSE (07/15/2006 11:02 AM CDT) GLUCOSE POC 116(H) 60 - 100 mg/dL INTERFACE SYSTEM 07/15/2006 11:0 2 AM CDT Ash Lopez III, MD POINT OF CARE TESTING Edited Performing Organization Address [facility] de Phone Number INTERFACE SYSTEM Refer to clinic/hospital department documented in this encounter Visit Diagnoses Diagnosis Adhesive capsulitis of shoulder- Primary documented in this encounter Care Teams Photocopying Equipment Mechanic Relationship Specialty Start Date End Date Cuba Solano MD PCP - General 07/11/09 documented as of this encounter
--- OUTSIDE RECORDS SUMMARY | 2025-04-21 20:09 | XMS_ITS | Encounter Summary ---
Author Organization [facility] Address [address] [place] [address] Care Team Providers Care Slackline Operator Name Role Phone Cuba Solano MD Primary Care Provider +1 -[phone] Encounter Details Date Type Department Care Team (Latest Contact Info) Description 09/11/2004 Outpatient Historical [facility] Imaging Services [place] [facility] [place] [address] [address] Huey Upton Jr., MD [address] [place] [address] 248 [facility] 140 [place] [address] CHONDROMALACIA PATELLAE (Primary Dx) Social History Tobacco Use Types Packs/Day Years Used Date Smoking Tobacco: Never Assessed Sex and Gender Information Value Date Recorded Sex Assigned at Not on file Legal Sex Male 2:49 AM SALVAGE ENGINEER Gender Identity Not on file Sexual Orientation Not on file documented as of this encounter Plan of Treatment Not on file documented as of this encounter Visit Diagnoses Diagnosis Chondromalacia of patella- Primary documented in this encounter Care Teams Slackline Operator Relationship Specialty Start Date End Date Cuba Solano MD PCP - General 07/11/09 documented as of this encounter
--- OUTSIDE RECORDS SUMMARY | 2025-04-21 20:09 | XMS_ITS | Encounter Summary ---
Author Organization [facility] Address [address] [place] [address] Care Team Providers Care Validation Technician Name Role Phone Cuba Solano MD Primary Care Provider +1 -[phone] Encounter Details Date Type Department Care Team (Latest Contact Info) Description 05/13/2004 Outpatient [facility] Family Medicine Angelica [place] [id number] [address] Donte Borrego MD NO ADDRESS ON FILE DIABETES MELLITUS TYPE II UNCONTR UNCOMPL (Primary Dx); Benign hypertension; Dermatitis due to plant Social History Tobacco Use Types Packs/Day Years Used Date Smoking Tobacco: Never Assessed Sex and Gender Information Value Date Recorded Sex Assigned at Not on file Legal Sex Male 2:49 AM MIDLEVEL PROVIDER Gender Identity Not on file Sexual Orientation [...] food) documented in this encounter Care Teams Validation Technician Relationship Specialty Start Date End Date Cuba Solano MD PCP - General 07/11/09 documented as of this encounter
--- OUTSIDE RECORDS SUMMARY | 2025-04-21 20:09 | XMS_ITS | Encounter Summary ---
Author Organization [facility] Address [address] [place] [address] Care Team Providers Care State Assessed Properties Director Name Role Phone Cuba Solano MD Primary Care Provider +1 -[phone] Encounter Details Date Type Department Care Team (Latest Contact Info) Description 12/29/2005 Outpatient Historical [facility] [address] [facility] [address] [place] [address] Ash Lopez III, MD [address] [place] [address] Other Affections of Shoulder Region, not Elsewhere Classified (Primary Dx) Social History Tobacco Use Types Packs/Day Years Used Date Smoking Tobacco: Never Assessed Sex and Gender Information Value Date Recorded Sex Assigned at Not on file Legal Sex Male 2: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 Gender Identity Not on file [...] INTERFACE SYSTEM 12/29/2005 9:45 AM CDT Result [facility] Ash Lopez III, MD POINT OF CARE TESTING Final Result Performing Organization Address [facility] Phone Number INTERFACE SYSTEM Refer to clinic/hospital [...] CARE TESTING Final Result Performing Organization Address [facility] Phone Number INTERFACE SYSTEM Refer to clinic/hospital department * (ABNORMAL) POC GLUCOSE (12/29/2005 7:05 AM CDT) GLUCOSE POC 133(H) 60 - 100 mg/dL INTERFACE SYSTEM 12/29/2005 7:05 AM CDT Ash Lopez III, MD POINT OF CARE TESTING Final Result Performing Organization Address [facility] Phone Number INTERFACE SYSTEM Refer to clinic/hospital department documented in this encounter Visit Diagnoses Diagnosis Other affections of shoulder region, not elsewhere classified- Primary documented in this encounter Care Teams State Assessed Properties Director Relationship Specialty Start Date End Date Cuba Solano MD PCP - General 07/11/09 documented as of this encounter
--- OUTSIDE RECORDS SUMMARY | 2025-04-21 20:09 | XMS_ITS | Encounter Summary ---
Author Organization [facility] Address [address] [place] [address] Care Team Providers Care Supervisor Mail Carriers Name Role Phone Cuba Solano MD Primary Care Provider +1 [phone] Encounter Details Date Type Department Care Team (Latest Contact Info) Description 07/05/2006 [facility] [address] [place] [address] Huey Upton Jr., MD [address] [place] [address] [address] [place] [address] DM w/o Complication Type II (CMS/HCC) (Primary Dx) Social History Tobacco Use Types Packs/Day Years Used Date Smoking Tobacco: Never Assessed Sex and Gender Information Value Date Recorded Sex Assigned at Not on file Legal Sex Male 2:49 AM TAVERN OPERATOR Gender Identity Not on file Sexual Orientation Not on file documented as of this encounter Plan of Treatment Not on file documented as of this encounter Visit Diagnoses Diagnosis Type II or unspecified type diabetes mellitus 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, not stated as uncontrolled- Primary documented in this encounter Care Teams Supervisor Mail Carriers Relationship Specialty Start Date End Date Cuba Solano MD PCP - General 07/11/09 documented as of this encounter
--- OUTSIDE RECORDS SUMMARY | 2025-04-21 20:09 | XMS_ITS | Encounter Summary ---
Author Organization [facility] Address [address] [place] [address] Care Team Providers Care Slip Cover Operator Name Role Phone Cuba Solano MD Primary Care Provider +1 -[phone] Encounter Details Date Type Department Care Team (Latest Contact Info) Description 01/12/2006 Outpatient Historical [facility] Orthopedics- [address] [place] 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
--- OUTSIDE RECORDS SUMMARY | 2025-04-21 20:09 | XMS_ITS | Encounter Summary ---
Author Organization [facility] Address [address] [place] [address] Care Team Providers Care Website Optimization Strategist Name Role Phone Cuba Solano MD Primary Care Provider +1 [phone] Encounter Details Date Type Department Care Team (Latest Contact Info) Description 11/12/2004 Outpatient Historical [facility] Orthopedics- [address] [place] [address] [place] [address] Ash Lopez III, MD [address] [place] [address] JOINT PAIN-L/LEG (Primary Dx); LOC PRIM OSTEOART-L/LEG Social History Tobacco Use Types Packs/Day Years Used Date Smoking Tobacco: Never Assessed Sex and Gender Information Value Date Recorded Sex Assigned at Not on file Legal Sex Male 2:49 AM PROPERTY INSPECTOR Gender Identity Not on file Sexual Orientation Not on file documented as of this encounter Plan of Treatment Not on file documented as of this encounter Visit Diagnoses Diagnosis Pain in joint, lower leg- Primary Primary localized osteoarthrosis, lower leg documented in this encounter Care Teams Website Optimization Strategist Relationship Specialty Start Date End Date Cuba Solano MD PCP - General 07/11/09 documented as of this encounter
--- OUTSIDE RECORDS SUMMARY | 2025-04-21 20:09 | XMS_ITS | Encounter Summary ---
Author Organization [facility] Address [address] [place] [address] Care Team Providers Care Golf Course Laborer Name Role Phone Cuba Solano MD Primary Care Provider +1 -[phone] Encounter Details Date Type Department Care Team (Latest Contact Info) Description 11/21/2004 Outpatient Historical [facility] Family Medicine [place] [id number] [address] Keyona Mccloud, LUCIEN NO ADDRESS ON FILE Pain in limb (Primary Dx) Social History Tobacco Use Types Packs/Day Years Used Date Smoking Tobacco: Never Assessed Sex and Gender Information Value Date Recorded Sex Assigned at Not on file Legal Sex Male 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
--- OUTSIDE RECORDS SUMMARY | 2025-04-21 20:09 | XMS_ITS | Encounter Summary ---
Author Organization [facility] Address [address] [place] [address] Care Team Providers Care Verification Rep Name Role Phone Cuba Solano MD Primary Care Provider +1 -[phone] Encounter Details Date Type Department Care Team (Latest Contact Info) Description 06/28/2006 Outpatient Historical [facility] Family Medicine [place] [id number] [address] Keyona Mccloud, LUCIEN NO ADDRESS ON FILE Unspecified Otitis Media (Primary Dx); Acute Sinusitis, Unspecified Social History Tobacco Use Types Packs/Day Years Used Date Smoking Tobacco: Never Assessed Sex and Gender Information Value Date Recorded Sex Assigned at Not on file Legal Sex Male 2:49 AM FACILITIES CUSTODIAN Gender Identity Not on file Sexual Orientation Not on file documented as of this encounter Plan of Treatment Not on file documented as of this encounter Visit Diagnoses Diagnosis Unspecified otitis media- Primary Acute sinusitis, unspecified documented in this encounter Care Teams Verification Rep Relationship Specialty Start Date End Date Cuba Solano MD PCP - General 07/11/09 documented as of this encounter
--- OUTSIDE RECORDS SUMMARY | 2025-04-21 20:09 | XMS_ITS | Encounter Summary ---
Author Organization [facility] Address [address] [place] [address] Care Team Providers Care Boom Crane Operator Name Role Phone Cuba Solano MD Primary Care Provider +1 -[phone] Encounter Details Date Type Department Care Team (Latest Contact Info) Description 07/08/2006 Outpatient Historical [facility] Family Medicine [place] [id number] [address] Keyona Mccloud, TANK COOPER NO ADDRESS ON FILE Allergy, Unspecified not Elsewhere Classified (Primary Dx) Social History Tobacco Use Types Packs/Day Years Used Date Smoking Tobacco: Never Assessed Sex and Gender Information Value Date Recorded Sex Assigned at Not on file Legal Sex Male 2: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 MEDICAL WRITING Gender Identity Not on file Sexual Orientation Not on file documented as of this encounter Plan of Treatment Not on file documented as of this encounter Visit Diagnoses Diagnosis Allergy, unspecified not elsewhere classified- Primary documented in this encounter Care Teams Boom Crane Operator Relationship Specialty Start Date End Date Cuba Solano MD PCP - General 07/11/09 documented as of this encounter
--- OUTSIDE RECORDS SUMMARY | 2025-04-21 20:09 | XMS_ITS | Encounter Summary ---
Author Organization [facility] Address [address] [place] [address] Care Team Providers Care Metal Furniture Repairer Name Role Phone Cuba Solano MD Primary Care Provider +1 [phone] Encounter Details Date Type Department Care Team (Latest Contact Info) Description 05/25/2006 Outpatient Historical [facility] Orthopedics- [address] [place] 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
--- OUTSIDE RECORDS SUMMARY | 2025-04-21 20:09 | XMS_ITS | Encounter Summary ---
Author Organization [facility] Address [address] [place] [address] Care Team Providers Care Die Technician Name Role Phone Cuba Solano MD Primary Care Provider +1 -[phone] Encounter Details Date Type Department Care Team (Latest Contact Info) Description 11/26/2004 Outpatient Historical [facility] Orthopedics- [address] [place] [address] 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
--- OUTSIDE RECORDS SUMMARY | 2025-04-21 20:09 | XMS_ITS | Encounter Summary ---
Author Organization [facility] Address [address] [place] [address] Care Team Providers Care Remelt Worker Name Role Phone Cuba Sloano MD Primary Care Provider +1 -[phone] Encounter Details Date Type Department Care Team (Latest Contact Info) Description 03/29/2006 Outpatient Historical [facility] Family Medicine [place] [address] [address] Keyona Mccloud, LUCIEN NO ADDRESS ON FILE Unspecified Essential Hypertension (Primary Dx) Social History Tobacco Use Types Packs/Day Years Used Date Smoking Tobacco: Never Assessed Sex and Gender Information Value Date Recorded Sex Assigned at Not on file Legal Sex Male 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
--- OUTSIDE RECORDS SUMMARY | 2025-04-21 20:09 | XMS_ITS | Encounter Summary ---
Author Organization [facility] Address [address] [place] [address] Care Team Providers Care Machine Tool Rebuilder Name Role Phone Cuba Solano MD Primary Care Provider +1 -[phone] Encounter Details Date Type Department Care Team (Latest Contact Info) Description 11/18/2004 Outpatient Historical [facility] Orthopedics- [address] [place] [address] [place] [address] Ash Lopez III, MD [address] [place] [address] LOC PRIM OSTEOART-L/LEG (Primary Dx) Social History Tobacco Use Types Packs/Day Years Used Date Smoking Tobacco: Never Assessed Sex and Gender Information Value Date Recorded Sex Assigned at Not on file Legal Sex Male 2:49 AM SAP PP CONSULTANT Gender Identity Not on file Sexual Orientation Not on file documented as of this encounter Plan of Treatment Not on file documented as of this encounter Visit Diagnoses Diagnosis Primary localized osteoarthrosis, lower leg- Primary documented in this encounter Care Teams Machine Tool Rebuilder Relationship Specialty Start Date End Date Cuba Solano MD PCP - General 07/11/09 documented as of this encounter
--- OUTSIDE RECORDS SUMMARY | 2025-04-21 20:09 | XMS_ITS | Encounter Summary ---
Author Organization [facility] Address [address] [place] [address] Care Team Providers Care Manager Educational Name Role Phone Cuba Solano MD Primary Care Provider +1 [phone] Encounter Details Date Type Department Care Team (Late st Contact Info) Description 09/11/2004 Outpatient Historical [facility] Imaging Services [facility] [place] [place] [address] Social History Tobacco Use Types Packs/Day Years Used Date Smoking Tobacco: Never Assessed Sex and Gender Information Value Date Recorded Sex Assigned at Not on file Legal Sex Male 2:49 AM DIRECTOR OF BUSINESS SERVICES Gender Identity Not on file Sexual Orientation Not on file documented as of this encounter Plan of Treatment Not on file documented as of this encounter Visit Diagnoses Not on filedocumented in this encounter Care Teams Manager Educational Relationship Specialty Start Date End Date Cuba Solano MD PCP - General 07/11/09 documented as of this encounter
--- OUTSIDE RECORDS SUMMARY | 2025-04-21 20:09 | XMS_ITS | Encounter Summary ---
Author Organization [facility] Address [address] [place] [address] Care Team Providers Care Profile Saw Operator Name Role Phone Cuba Solano MD Primary Care Provider +1 [phone] Encounter Details Date Type Department Care Team (Latest Contact Info) Description 05/04/2006 Outpatient Historical [facility] Family Medicine [place] [id number] [address] Keyona Mccloud FNP NO ADDRESS ON FILE DM w/o Complication Type II (CMS/HCC) (Primary Dx); Other and Unspecified Hyperlipidemia; Encounter for Long-Term (Current) Use of Other Medications Social History Tobacco Use Types Packs/Day Years Used Date Smoking Tobacco: Never Assessed Sex and Gender Information Value Date Recorded Sex Assigned at Not on file Legal Sex Male 2:49 AM OUTSIDE FOOD SERVER Gender Identity Not on file Sexual [...] medications documented in this encounter Care Teams Profile Saw Operator Relationship Specialty Start Date End Date Cuba Solano MD PCP - General 07/11/09 documented as of this encounter
--- OUTSIDE RECORDS SUMMARY | 2025-04-21 20:09 | XMS_ITS | Encounter Summary ---
Author Organization [facility] Address [address] [place] [address] Care Team Providers Care Line Worker Name Role Phone Cuba Solano MD Primary Care Provider +1 -[phone] Encounter Details Date Type Department Care Team (Latest Contact Info) Description 07/14/2004 Outpatient Historical [facility] Family Medicine [place] [address] [address] Keyona Mccloud, LUCIEN NO ADDRESS ON FILE THRUSH (Primary Dx); JOINT PAIN-L/LEG Social History Tobacco Use Types Packs/Day Years Used Date Smoking Tobacco: Never Assessed Sex and Gender Information Value Date Recorded Sex Assigned at Not on file Legal Sex Male 2:49 AM RISK COMPLIANCE MANAGER Gender Identity Not on file Sexual Orientation Not on file documented as of this encounter Plan of Treatment Not on file documented as of this encounter Visit Diagnoses Diagnosis Candidiasis of mouth- Primary Pain in joint, lower leg documented in this encounter Care Teams Line Worker Relationship Specialty Start Date End Date Cuba Solano MD PCP - General 07/11/09 documented as of this encounter
--- OUTSIDE RECORDS SUMMARY | 2025-04-21 20:09 | XMS_ITS | Encounter Summary ---
Author Organization [facility] Address [address] [place] [address] Care Team Providers Care Farmworker Fryer Farm Name Role Phone Cuba Solano MD Primary Care Provider +1 -[phone] Encounter Details Date Type Department Care Team (Latest Contact Info) Description 04/05/2006 [facility] [address] [place] [address] Huey Upton Jr., MD [address] [place] [address] [address] [place] [address] DM w/o Complication Type II (CMS/HCC) (Primary Dx) Social History Tobacco Use Types Packs/Day Years Used Date Smoking Tobacco: Never Assessed Sex and Gender Information Value Date Recorded Sex Assigned at Not on file Legal Sex Male 2:49 AM LIEUTENANT GENERAL Gender Identity Not on file Sexual Orientation Not on file documented as of this encounter Plan of Treatment Not on file documented as of this encounter Visit Diagnoses Diagnosis Type II or unspecified type diabetes mellitus 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, not stated as uncontrolled- Primary documented in this encounter Care Teams Farmworker Fryer Farm Relationship Specialty Start Date End Date Cuba Solano MD PCP - General 07/11/09 documented as of this encounter
--- OUTSIDE RECORDS SUMMARY | 2025-04-21 20:09 | XMS_ITS | Encounter Summary ---
Author Organization [facility] Address [address] [place] [address] Care Team Providers Care Assembler Production Line Name Role Phone Cuba Solano MD Primary Care Provider +1 -[phone] Encounter Details Date Type Department Care Team (Latest Contact Info) Description 07/18/2004 Outpatient Historical [facility] Family Medicine [place] [address] [address] Keyoan Mccloud, LUCIEN NO ADDRESS ON FILE ORAL APHTHAE (Primary Dx); DYSPHAGIA Social History Tobacco Use Types Packs/Day Years Used Date Smoking Tobacco: Never Assessed Sex and Gender Information Value Date Recorded Sex Assigned at Not on file Legal Sex Male 2:49 AM QUALITY ASSURANCE Gender Identity Not on file Sexual Orientation Not on file documented as of this encounter Plan of Treatment Not on file documented as of this encounter Visit Diagnoses Diagnosis Oral aphthae- Primary Dysphagia documented in this encounter Care Teams Assembler Production Line Relationship Specialty Start Date End Date Cuba Solano MD PCP - General 07/11/09 documented as of this encounter
--- OUTSIDE RECORDS SUMMARY | 2025-04-21 20:10 | XMS_ITS | Encounter Summary ---
Author Organization [facility] Address [address] [facility] Attn: [place] [address] Care Team Providers Care Motor Equipment Lieutenant Name Role Phone Cuba Solano MD Primary Care Provider +1 -[phone] Encounter Details Date Type Department Care Team (Late st Contact Info) Description 04/08/2001 Outpatient Historical Donte Borrego MD NO ADDRESS ON FILE Social History Tobacco Use Types Packs/Day Years Used Date Smoking Tobacco: Never Assessed Sex and Gender Information Value Date Recorded Sex Assigned at Not on file Legal Sex Male 2:49 AM GAS MAKER HELPER Gender Identity Not on file Sexual Orientation Not on file documented as of this encounter Plan of Treatment Not on file documented as of this encounter Visit Diagnoses Not on filedocumented in this encounter Care Teams Motor Equipment Lieutenant Relationship Specialty Start Date End Date Cuba Solano MD PCP - General 07/11/09 documented as of this encounter
--- OUTSIDE RECORDS SUMMARY | 2025-04-21 20:10 | XMS_ITS | Encounter Summary ---
Author Organization [facility] Address [address] [place] [address] Care Team Providers Care Adjunct Faculty Mathematics Department Name Role Phone Cuba Solano MD Primary Care Provider +1 -[phone] Encounter Details Date Type Department Care Team (Latest Contact Info) Description 05/30/2001 Outpatient Historical [facility] Family Medicine [place] [address] [address] Donte Borrego MD NO ADDRESS ON FILE HYPERTENSION NOS (Primary Dx); ACUTE SINUSITIS NOS; KERATODERMA, ACQUIRED; HYPERLIPIDEMIA NEC/NOS Social History Tobacco Use Types Packs/Day Years Used Date Smoking Tobacco: Never Assessed Sex and Gender Information Value Date Recorded Sex Assigned at Not on file Legal Sex Male 2:49 AM DRAFTER GEOLOGICAL Gender Identity Not on file Sexual Orientation Not on file documented as of this encounter Plan of Treatment Not on file documented as of this encounter Visit Diagnoses Diagnosis Unspecified essential hypertension- Primary Acute sinusitis, unspecified Acquired keratoderma Other and unspecified hyperlipidemia documented in this encounter Care Teams Adjunct Faculty Mathematics Department Relationship Specialty Start Date End Date Cuba Solano MD PCP - General 07/11/09 documented as of this encounter
--- OUTSIDE RECORDS SUMMARY | 2025-04-21 20:10 | XMS_ITS | Encounter Summary ---
Author Organization [facility] Address [address] [facility] Attn: [place] [address] Care Team Providers Care Textile Broker Name Role Phone Cuba Solano MD Primary Care Provider +1 -[phone] Encounter Details Date Type Department Care Team (Late st Contact Info) Description 11/22/2000 Outpatient Historical Donte Borrego MD NO ADDRESS ON FILE Social History Tobacco Use Types Packs/Day Years Used Date Smoking Tobacco: Never Assessed Sex and Gender Information Value Date Recorded Sex Assigned at Not on file Legal Sex Male 2:49 AM PROPELLER DRIVEN AIRPLANE MECHANIC Gender Identity Not on file Sexual Orientation Not on file documented as of this encounter Plan of Treatment Not on file documented as of this encounter Visit Diagnoses Not on filedocumented in this encounter Care Teams Textile Broker Relationship Specialty Start Date End Date Cuba Solano MD PCP - General 07/11/09 documented as of this encounter
--- OUTSIDE RECORDS SUMMARY | 2025-04-21 20:10 | XMS_ITS | Encounter Summary ---
Author Organization [facility] Address [address] [facility] Attn: [place] [address] Care Team Providers Care Business Support Administrator Name Role Phone Cuba Solano MD Primary Care Provider +1 -[phone] Encounter Details Date Type Department Care Team (Late st Contact Info) Description 10/05/2000 Outpatient Historical Donte Borrego MD NO ADDRESS ON FILE Social History Tobacco Use Types Packs/Day Years Used Date Smoking Tobacco: Never Assessed Sex and Gender Information Value Date Recorded Sex Assigned at Not on file Legal Sex Male 2:49 AM GROUP MANAGER Gender Identity Not on file Sexual Orientation Not on file documented as of this encounter Plan of Treatment Not on file documented as of this encounter Visit Diagnoses Not on filedocumented in this encounter Care Teams Business Support Administrator Relationship Specialty Start Date End Date Cuba Solano MD PCP - General 07/11/09 documented as of this encounter
--- OUTSIDE RECORDS SUMMARY | 2025-04-21 20:10 | XMS_ITS | Encounter Summary ---
Author Organization [facility] Address [address] [place] [address] Care Team Providers Care Drugless Doctor Name Role Phone Cuba Solano MD Primary Care Provider +1 [phone] Encounter Details Date Type Department Care Team (Latest Contact Info) Description 04/07/2000 Outpatient Historical [facility] Family Medicine [place] [id number] [address] [address] Donte Borrego MD NO ADDRESS ON FILE Unspecified essential hypertension (Primary Dx); Unspecified suppurative otitis media; Nasal/sinus dis NEC Social History Tobacco Use Types Packs/Day Years Used Date Smoking Tobacco: Never Assessed Sex and Gender Information Value Date Recorded Sex Assigned at Not on file Legal Sex Male 2:49 AM WRITING TUTOR Gender Identity Not on file Sexual Orientation Not on file documented as of this encounter Plan of Treatment Not on file documented as of this encounter Visit Diagnoses Diagnosis Unspecified essential hypertension- Primary Unspecified suppurative otitis media Nasal/sinus dis NEC Other diseases of nasal cavity and sinuses documented in this encounter Care Teams Drugless Doctor Relationship Specialty Start Date End Date Cuba Solano MD PCP - General 07/11/09 documented as of this encounter
--- OUTSIDE RECORDS SUMMARY | 2025-04-21 20:10 | XMS_ITS | Continuity of Care Document ---
Author Organization [place] - Aravind Moncada [facility] Mikhail, Chas, [facility] ([facility]) Address [address] [place] [address] Assessment No assessment recorded. Plan of Treatment [...] By Organization Details Last Modified Time 02/05/2025 [id number] Abdomen worse. Leaking fluid. Planning to see [...] resul t No observ ation record ed. [facility] [address] [place], [address], 02/12/2025 11:57:54 Result Notes None recorded. Problems Name Problem SNOMED Code Status Onset Date Resolution Date Notes Provider Name and Address Organization Details Recorded Time Essential hypertens ion 56947621 Active 2007 ESSENTIAL HYPERTENS ION; 8 2:16PM by Karla Joseph LPN, Office Visit; Promoted; acuity set as *; Not Available [facility] 3 03:17:47 Allergic rhinitis 78730347 Active 2007 ALLERGIC RHINITIS; 8 2:16PM by Karla Joseph LPN, Office Visit; Promoted; acuity set as *; Not Available [facility] 3 03:17:47 Persisten t insomnia 451120579 Active 2007 PERSISTEN T INSOMNIA; 8 2:16PM by Karla Joseph LPN, Office Visit; Promoted; acuity set as *; Not Available [facility] 3 03:17:52 Fracture of ankle 37519640 Active 2007 Ankle Fracture; 8 2:16PM by Karla Joseph LPN, Office Visit; Promoted; acuity set as *; Not Available [facility] 3 03:17:53 Peptic ulcer 84035686 Active 2007 PEPTIC ULCER; 8 2:16PM by Karla Joseph LPN, Office Visit; Promoted; acuity set as *; Not Available [facility] 3 03:17:53 Type 1 diabetes mellitus 73770957 Active 2007 DIABETES MELLITUS TYPE I; 8 2:16PM by Karla Joseph LPN, Office Visit; Promoted; acuity set as *; Not Available [facility] 3 03:17:58 Constipat ion 49341902 Active 2007 CONSTIPAT ION; 8 2:16PM by Karla Joseph LPN, Office Visit; Promoted; acuity set as *; Not Available [facility] 3 03:17:58 Amputated above knee 261061346 Active 2007 ABOVE KNEE AMPUTATIO N STATUS; 8 2:16PM by Karla Joseph LPN, Office Visit; Promoted; acuity set as *; Not Available [facility] 3 03:17:59 History of depressio n 677718329 Active 2007 DEPRESSIO N, NOS; 8 2:16PM by Karla Joseph LPN, Office Visit; Promoted; acuity set as *; Not Available [facility] 3 03:18:00 Hyperglyc emia due to type 2 diabetes mellitus 86166974376 9109 Active 2023 NATHANAEL tavarez, [facility] 4 13:09:52 Chronic back pain greater than three months duration 61936613836 2 Active 2023 NATHANAEL tavarez, [facility] 4 15:23:19 Blepharit is of right eyelid 82463035923 9103 Active 2024 NATHANAEL VICTORIA [facility], [facility] 5 15:11:18 Congestiv e heart failure 47804307 Active 2024 NATHANAEL VICTORIA [facility] 5 16:21:48 Acute right otitis media 293586381 Active 2024 NATHANAEL VICTORIA [facility] 5 16:28:04 Pain of right shoulder joint 97113803762 842905 Active 2024 NATHANAEL VICTORIA [facility] 5 17:59:42 Hepatospl enomegaly 00913790 Active 2024 NATHANAEL VICTORIA [facility] 5 14:35:12 Thrombocy topenic disorder 944489497 Active 2024 NATHANAEL VICTORIA [facility] 5 14:35:13 Bilateral lower limb edema 564525197 Active 2024 MARLON HAEFFSARMAD [facility] 5 15:35:25 Acute urinary tract infection 481716140 Active 2024 NATHANAEL VICTORIA [facility] 5 14:32:57 Sarcoidos is 83987386 Active 2024 NATHANAEL VICTORIA [facility], [place] 5 14:33:01 Problem Notes None recorded. Medical Equipment None Reported. Allergies Allergen ID Allergen Name Allergen Category Reaction Reaction Severity Criticality Documentation Date Start Date Code Code System Note Provider Name and Address Organization Details Recorded Time 46990 Product containin g penicilli n (product) medicatio n Not available Not available Not available 11/28/2022 06569 8001 SNOMED Comme nt: Recor ded 09/01 2:16P M by Briseida Joseph LPN, Offic e Visit ; Promo joanne; Shruthi wade ce: *; ; Not Available [facility] 3 02:25:17 82792 Substance with sulfonami de structure and antibacte rial mechanism of action (substanc e) medicatio n Not available Not available Not available 03/22/2025 54821 8003 SNOMED Not Available david - [employer] - prod 5 06:48:45 94822 sulfameth oxazole / trimethop rim medicatio n rash Not available [facility] 03/22/20252007 38741 RxNorm Not Available [employer] - prod 5 06:50:41 Medications [...] Recorded 8 2:43PM by Jory George CMT, [employer] Summary; Refill Quantity: 0; Not Available [...] Recorded 8 2:43PM by Jory George CMT, [employer] Summary; Refill Quantity: 0; Not Available [...] Recorded 8 2:43PM by Jory George CMT, [facility] Summary; Refill Quantity: 0; Not [...] Address Organization Details Last Updated DateTime 5 284630. 7 g 92 /min 20 /min 98.2 [degF] 93 % 102/61 mm[Hg] NATHANAEL VICTORIA [facility], [facility] 5 14:31:47 Social History None recorded. Functional Status None recorded. Mental Status None recorded. Family History Nothing Reported. Medical History No medical history recorded. Immunizations Vaccine Type Date Status Note Provider Nam e and Address Organization Details Recorded Time influenza, unspecified formulation 8 completed Not Available On license of [facility] 04/17/2025 09:08:23 Influenza, split virus, trivalent, preservative 0 completed Not Available On license of [facility] 04/17/2025 09:08:23 COVID-19, mRNA, LNP-S, PF, 100 mcg/0.5mL dose or 50 mcg/0.25mL dose 1 completed Not Available On license of [facility] 04/17/2025 09:08:23 COVID-19, mRNA, LNP-S, PF, 100 mcg/0.5mL dose or 50 mcg/0.25mL dose 1 completed Not Available On license of [facility] 04/17/2025 09:08:23 Influenza, split virus, quadrivalent, PF 1 completed Not Available On license of [facility] 04/17/2025 09:08:23 COVID-19, mRNA, LNP-S, PF, 100 mcg/0.5mL dose or 50 mcg/0.25mL dose 1 completed Not Available On license of [facility] 04/17/2025 09:08:23 Influenza, split virus, quadrivalent, PF 2 completed Not Available On license of [facility] 04/17/2025 09:08:23 Influenza, split virus, quadrivalent, PF 3 completed Not Available On license of [facility] 04/17/2025 09:08:23 Influenza, split virus, trivalent, preservative 4 completed Not Available [facility] 04/17/2025 09:08:23 COVID-19, mRNA, LNP-S, PF, 50 mcg/0.5 mL 5 completed Not Available On license of [facility] 04/17/2025 09:08:23 Past Encounters Encounter ID Performer Location Encounter Start Date Encounter Closed Date Diagnosis/Indication Diagnosis SNOMED-CT Code Diagnosis ICD10 Code Diagnosis IMO Codes Diagnosis Note [id number] Chris Parker DO [facility] ([facility]) [address] [place] [address] 01/11/2025 12:12:21 01/16/2025 10:56:12 Hyperglycemia due to type 2 diabetes mellitus 0503249772 68426 E11.65 Z79.4 [id number] Chris Parker DO [facility]) [address] [place] [address] 01/15/2025 12:18:30 01/17/2025 08:49:31 Type 1 diabetes mellitus 29919859 E10.9 Hepatosplenomegaly 03673 000 R16.2 11642 Pneumonia 315760354 J18. 9 3085958251 [id number] Chris Parker DO [facility] ([facility]) [address] [place], [place] [address] 01/18/2025 09:41:48 01/23/2025 16:25:08 [id number] Chris Parker DO [facility]) [address] [place] [address] 01/22/2025 15:25:32 01/24/2025 09:26:09 Congestive heart failure 57666964 I50.9 Type 1 brad betes mellitus 40473269 E10.9 Hepatosplenomegaly 22245 000 R16.2 17673 [id number] Chris Parker DO [facility] ([facility]) [address] [place] [address] 02/05/2025 14:15:56 02/06/2025 16:50:40 Hepatosplenomegaly 58319196 R16.2 52791 Ascites 365911590 R18.8 212263 Pancytopenia 961487209 D 61.818 05994 Health Concerns Section Related Observation LastModified by Organization Detai ls LastModified Time None Recorded Concern Status LastModified by Organization Details LastModified Time None Recorded Payers Encounter Date Sequence Insurance Name Policy Number Policy Pate Covered Member ID Pate Member ID Guarantor Name 02/05/2025 1 [place] Marciano Alonso [id number] Marciano Alonso 02/05/2025 2 [place] Marciano Alonso [id number] Marciano Alonso Notes Date Note Type Note Provider Name and Address Organization Details Recorded Time 02/05/2025 text/html COPDReported by PatientHPI:For associated symptoms, patient reportsobesity. For onset/timing, patient reportsmultiple times per day. For duration, patient reportshas noted for years.ROS as noted in the HPI Planning to see oncology/hematology today, plan to have liver biopsy tomorrow. Chris Parker, DO [address] [place] [address], [phone], [facility] 02/05/2025 15:13:57
--- OUTSIDE RECORDS SUMMARY | 2025-04-21 20:10 | XMS_ITS | Encounter Summary ---
Author Organization [facility] Address [address] [facility] Attn: [place] [address] Care Team Providers Care Child Development Associate Teacher Name Role Phone Cuba Solano MD Primary Care Provider +1 -[phone] Encounter Details Date Type Department Care Team [...] filedocumented in this encounter Care Teams Child Development Associate Teacher Relationship Specialty Start Date End Date Cuba Solano MD PCP - General 07/11/09 documented as of this encounter
--- OUTSIDE RECORDS SUMMARY | 2025-04-21 20:10 | XMS_ITS | Encounter Summary ---
Author Organization [facility] Address [address] [place] [address] Care Team Providers Care Rail Car Unloader Name Role Phone Cuba Solano MD Primary Care Provider +1 -[phone] Encounter Details Date Type Department Care Team (Latest Contact Info) Description 02/09/2000 Outpatient Historical [facility] Family Medicine [place] [id number] [address] Donte Borrego MD NO ADDRESS ON FILE Unspecified suppurative otitis media (Primary Dx); Acute upper respiratory infections of unspecified site Social History Tobacco Use Types Packs/Day Years Used Date Smoking Tobacco: Never Assessed Sex and Gender Information Value Date Recorded Sex Assigned at Not on file 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
--- OUTSIDE RECORDS SUMMARY | 2025-04-21 20:10 | XMS_ITS | Encounter Summary ---
Author Organization [facility] Address [address] [place] [address] Care Team Providers Care Scrap Iron Cutter Name Role Phone uCba Solano MD Primary Care Provider +1 -[phone] Encounter Details Date Type Department Care Team (Latest Contact Info) Description 04/10/2002 Outpatient Historical [facility] Family Medicine [place] [address] [address] Donte Borrego MD NO ADDRESS ON FILE HYPERLIPIDEMIA NEC/NOS (Primary Dx) Social History Tobacco Use Types Packs/Day Years Used Date Smoking Tobacco: Never Assessed Sex and Gender Information Value Date Recorded Sex Assigned at Not on file 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
--- OUTSIDE RECORDS SUMMARY | 2025-04-21 20:10 | XMS_ITS | Encounter Summary ---
Author Organization [facility] Address [address] [place] [address] Care Team Providers Care Exchange Underwriting Consultant Name Role Phone Cuba Solano MD Primary Care Provider +1 -[phone] Encounter Details Date Type Department Care Team (Latest Contact Info) Description 05/04/2002 Outpatient Historical [facility] Family Medicine Angel[place] [address] [address] Donte Borrego MD NO ADDRESS ON FILE OTALGIA NOS (Primary Dx) Social History Tobacco Use Types Packs/Day Years Used Date Smoking Tobacco: Never Assessed Sex and Gender Information Value Date Recorded Sex Assigned at Not on file 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
--- OUTSIDE RECORDS SUMMARY | 2025-04-21 20:10 | XMS_ITS | Encounter Summary ---
Author Organization [facility] Address [address] [place] [address] Care Team Providers Care Funeral Service Manager Name Role Phone Cuba Solano MD Primary Care Provider +1 -[phone] Encounter Details Date Type Department Care Team (Latest Contact Info) Description 07/04/2001 Outpatient Historical [facility] Family Medicine [place] [address] [address] Donte Borrego MD NO ADDRESS ON FILE HYPERTENSION NOS (Primary Dx); HYPERLIPIDEMIA NEC/NOS; [employer] CLUB[employer] ATTENDANT USE MEDICATN; VACCINE FOR STREP PNEUMONIAE Social History Tobacco Use Types Packs/Day Years Used Date Smoking Tobacco: Never Assessed Sex and Gender Information Value Date Recorded Sex Assigned at Not on file 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
--- OUTSIDE RECORDS SUMMARY | 2025-04-21 20:10 | XMS_ITS | Continuity of Care Document ---
Author Organization RASHEED - Aravind Barboza [facility], [place], [facility]) Address [address] [place] [address] Assessment No assessment recorded. Plan of Treatment [...] By Organization Details Last Modified Time 04/05/2025 [id number] Sugars too high, increase tresiba to 120 and aspart to 60 units. [email or web address] Not available 04/05/2025 15:03:14 Reason for Referral None Reported. Problems Name Problem SNOMED Code Status Onset Date Resolution Date Notes Provider Name and Address Organization Details Recorded Time Essential hypertens ion 45703507 Active 2007 ESSENTIAL HYPERTENS ION; 8 2:16PM by Karla Joseph LPN, Office Visit; Promoted; acuity set as *; Not Available [facility] 3 03:17:47 Allergic rhinitis 01419281 Active 2007 ALLERGIC RHINITIS; 8 2:16PM by Karla Joseph LPN, Office Visit; Promoted; acuity set as *; Not Available [facility] 3 03:17:47 Persisten t insomnia 443148874 Active 2007 PERSISTEN T INSOMNIA; 8 2:16PM by Karla Joseph LPN, Office Visit; Promoted; acuity set as *; Not Available [facility] 3 03:17:52 Fracture of ankle 02284297 Active 2007 Ankle Fracture; 8 2:16PM by Karla Joseph LPN, Office Visit; Promoted; acuity set as *; Not Available [facility] 3 03:17:53 Peptic ulcer 06266802 Active 2007 PEPTIC ULCER; 8 2:16PM by Karla Joseph LPN, Office Visit; Promoted; acuity set as *; Not Available [facility] 3 03:17:53 Type 1 diabetes mellitus 35588063 Active 2007 DIABETES MELLITUS TYPE I; 8 2:16PM by Karla Joseph LPN, Office Visit; Promoted; acuity set as *; Not Available [facility] 3 03:17:58 Constipat ion 21319786 Active 2007 CONSTIPAT ION; 8 2:16PM by Karla Joseph LPN, Office Visit; Promoted; acuity set as *; Not Available [facility] 3 03:17:58 Amputated above knee 037178640 Active 2007 ABOVE KNEE AMPUTATIO N STATUS; 8 2:16PM by Karla Joseph LPN, Office Visit; Promoted; acuity set as *; Not Available [facility] 3 03:17:59 History of depressio n 338288486 Active 2007 DEPRESSIO N, NOS; 8 2:16PM by Karla Joseph LPN, Office Visit; Promoted; acuity set as *; Not Available [facility] 3 03:18:00 Hyperglyc emia due to type 2 diabetes mellitus 88432033572 9109 Active 2023 NATHANAEL tavarez [facility] 4 13:09:52 Chronic back pain greater than three months duration 49804981479 2 Active 2023 NATHANAEL tavarez [facility] 4 15:23:19 Blepharit is of right eyelid 21355257991 9103 Active 2024 NATHANAEL tavarez [facility] 5 15:11:18 Congestiv e heart failure 11417815 Active 2024 NATHANAEL VICTORIA [facility] 5 16:21:48 Acute right otitis media 080968869 Active 2024 NATHANAEL VICTORIA [facility] 5 16:28:04 Pain of right shoulder joint 10371709634 008645 Active 2024 NATHANAEL VICTORIA [facility] 17:59:42 Hepatospl enomegaly 58463812 Active 2024 NATHANAEL VICTORIA [facility] 14:35:12 Thrombocy topenic disorder 150992513 Active 2024 NATHANAEL VICTORIA [facility] 14:35:13 Bilateral lower limb edema 441125541 Active 2024 MARLON HAEFFSARMAD [facility] 15:35:25 Acute urinary tract infection 112940034 Active 2024 NATHANAEL VICTORIA [facility] 14:32:57 Sarcoidos is 25063803 Active 2024 NATHANAELLISA VICTORIA [facility] 14:33:01 Problem Notes None recorded. Medical Equipment None Reported. Allergies Allergen ID Allergen Name Allergen Category Reaction Reaction Severity Criticality Documentation Date Start Date Code Code System Note Provider Name and Address Organization Details Recorded Time 29707 Product containin g penicilli n (product) medicatio n Not available Not available Not available 11/28/2022 67216 8001 SNOMED Comme nt: Recor ded 09/01 2:16P M by Briseida Joseph LPN, Offic e Visit ; Promo joanne; Signi fican ce: *; ; Not Available [facility] 3 02:25:17 90258 Substance with sulfonami de structure and antibacte rial mechanism of action (substanc e) medicatio n Not available Not available Not available 03/22/2025 85284 8003 SNOMED Not Available david - External Data Service - prod 5 06:48:45 38823 sulfameth oxazole / trimethop rim medicatio n rash Not available [facility] 03/22/20252007 84470 RxNorm Not Available david - External Data [...] Address Organization Details Last Updated DateTime 5 414651. 64 g 65 /min 18 /min 96.2 [degF] 100 % 123/67 mm[Hg] NATHANAEL VICTORIA [facility] 5 15:00:57 Social History None recorded. Functional Status None recorded. Mental Status None recorded. Family History Nothing Reported. Medical History No medical history recorded. Immunizations Vaccine Type Date Status Note Provider Nam e and Address Organization Details Recorded Time influenza, unspecified formulation 8 completed Not Available [facility] 04/17/2025 09:08:23 Influenza, split virus, trivalent, preservative 0 completed Not Available [facility] 04/17/2025 09:08:23 COVID-19, mRNA, LNP-S, PF, 100 mcg/0.5mL dose or 50 mcg/0.25mL dose 1 completed Not Available [facility] 04/17/2025 09:08:23 COVID-19, mRNA, LNP-S, PF, 100 mcg/0.5mL dose or 50 mcg/0.25mL dose 1 completed Not Available [facility] 04/17/2025 09:08:23 Influenza, split virus, quadrivalent, PF 1 completed Not Available [facility] 04/17/2025 09:08:23 COVID-19, mRNA, LNP-S, PF, 100 mcg/0.5mL dose or 50 mcg/0.25mL dose 1 completed Not Available [facility] 04/17/2025 09:08:23 Influenza, split virus, quadrivalent, PF 2 completed Not Available [facility] 04/17/2025 09:08:23 Influenza, split virus, quadrivalent, PF 3 completed Not Available [facility] 04/17/2025 09:08:23 Influenza, split virus, trivalent, preservative 4 completed Not Available [facility] 04/17/2025 09:08:23 COVID-19, mRNA, LNP-S, PF, 50 mcg/0.5 mL 5 completed Not Available [facility] 04/17/2025 09:08:23 Past Encounters Encounter ID Performer Location Encounter Start Date Encounter Closed Date Diagnosis/Indication Diagnosis SNOMED-CT Code Diagnosis ICD10 Code Diagnosis IMO Codes Diagnosis Note [id number] Chris Parker DO [facility] ([facility]) [address] [place] [address] 03/22/2025 09:18:02 03/26/2025 11:28:18 Post-discharge follow-up 823225353 Z09 254071 Acute urin constance tract infection 722471335 N39.0 474311 Essential hypertension 77976306 I10 Congestive heart failure 10265024 I50.9 Hyperglyce jaleel due to type 2 diabetes mellitus 7645746216 04723 E11.65 Z79.4 Sarcoidosis 25461626 D86 .9 90867 [id number] Chris Parker DO [facility] ([facility]) [address] [place] [address] 04/05/2025 12:29:02 04/12/2025 12:50:40 Type 1 diabetes mellitus 21995346 E10.9 Health Concerns Section Related Observation LastModified by Organization Detai ls LastModified Time None Recorded Concern Status LastModified by Organization Details LastModified Time None Recorded Payers Encounter Date Sequence Insurance Name Policy Number Policy Pate Covered Member ID Pate Member ID Guarantor Name 04/05/2025 1 [place] Marciano Jorje Alonso [id number] Marciano Aolnso 04/05/2025 2 [place] Marciano Alonso [id number] Marciano Alonso Notes Date Note Type Note Provider Name and Address Organization Details Recorded Time 04/05/2025 text/html COPDReported by PatientHPI:For associated symptoms, patient reportsobesity. For onset/timing, patient reportsmultiple times per day. For duration, patient reportshas noted for years.ROS as noted in the HPI staff reports sugars are too high. Chris Parker DO [address] [place] [address], [address], [facility] 04/11/2025 18:06:37
--- OUTSIDE RECORDS SUMMARY | 2025-04-21 20:10 | XMS_ITS | Encounter Summary ---
Author Organization [facility] Address [address] [place] [address] Care Team Providers Care Terrazzo Helper Name Role Phone Cuba Solano MD Primary Care Provider +1 [phone] Encounter Details Date Type Department Care Team (Late st Contact Info) Description 03/14/[address] 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
--- OUTSIDE RECORDS SUMMARY | 2025-04-21 20:10 | XMS_ITS | Encounter Summary ---
Author Organization [facility] Address [address] [place] [address] Care Team Providers Care Physiatrist Name Role Phone Cuba Solano MD Primary Care Provider +1 [phone] Encounter Details Date Type Department Care Team (Latest Contact Info) Description 01/18/2002 Outpatient Historical [facility] [place] [address] [address] Donte Borrego MD NO ADDRESS ON FILE DISEASES OF LIPS (Primary Dx); ALLERGY, UNSPECIFIED Social History Tobacco Use Types Packs/Day Years Used Date Smoking Tobacco: Never Assessed Sex and Gender Information Value Date Recorded Sex Assigned at Not on file 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
--- OUTSIDE RECORDS SUMMARY | 2025-04-21 20:10 | XMS_ITS | Encounter Summary ---
Author Organization [facility] Address [address] [place] [address] Care Team Providers Care Paraffin Plant Operator Name Role Phone Cuba Solano MD Primary Care Provider +1 [phone] Encounter Details Date Type Department Care Team (Latest Contact Info) Description 04/10/2002 Outpatient [facility] Family Medicine [place] [address] [address] Donte Borrego MD NO ADDRESS ON FILE B-COMPLEX DEFIC NEC (Primary Dx); OTHER MALAISE AND FATIGUE; HYPERLIPIDEMIA NEC/NOS Social History Tobacco Use Types Packs/Day Years Used Date Smoking Tobacco: Never Assessed Sex and Gender Information Value Date Recorded Sex Assigned at Not on file 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
--- OUTSIDE RECORDS SUMMARY | 2025-04-21 20:10 | XMS_ITS | Encounter Summary ---
Author Organization [facility] Address [address] [place] [address] Care Team Providers Care Legger Press Operator Name Role Phone Cuba Solano MD Primary Care Provider +1 [phone] Encounter Details Date Type Department Care Team (Late st Contact Info) Description 09/06/2000 Outpatient Historical [facility] [place] [address] [place] [address] Encounter for long-term (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 of other medications (Primary Dx); Other convulsions Social History Tobacco Use Types Packs/Day Years Used Date Smoking Tobacco: Never Assessed Sex and Gender Information Value Date Recorded Sex Assigned at Not on file Legal 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
--- OUTSIDE RECORDS SUMMARY | 2025-04-21 20:10 | XMS_ITS | Encounter Summary ---
Author Organization [facility] Address [address] [place] [address] Care Team Providers Care Automation Technologist Name Role Phone Cuba Solano MD Primary Care Provider +1 [phone] Encounter Details Date Type Department Care Team (Latest Contact Info) Description 11/30/2001 Outpatient Historical [facility] Family Medicine [place] [address] [address] Donte Borrego MD NO ADDRESS ON FILE ACUTE CONJUNCTIVITIS NOS (Primary Dx); HERPES ZOSTER NOS Social History Tobacco Use Types Packs/Day Years Used Date Smoking Tobacco: Never Assessed Sex and Gender Information Value Date Recorded Sex Assigned at Not on file Legal 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
--- OUTSIDE RECORDS SUMMARY | 2025-04-21 20:10 | XMS_ITS | Encounter Summary ---
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
--- OUTSIDE RECORDS SUMMARY | 2025-04-21 20:10 | XMS_ITS | Encounter Summary ---
Author Organization [facility] Address [address] [place] [address] Care Team Providers Care Coal Trimmer Name Role Phone Cuba Solano MD Primary Care Provider +1 [phone] Encounter Details Date Type Department Care Team (Latest Contact Info) Description 10/04/2000 Outpatient Historical [facility] Family Medicine [place] [address] [address] Donte Borrego MD NO ADDRESS ON FILE Other and unspecified hyperlipidemia (Primary Dx); Unspecified essential hypertension; Allergy, unspecified not elsewhere classified; Actinic keratosis Social History Tobacco Use Types Packs/Day Years Used Date Smoking Tobacco: Never Assessed Sex and Gender Information Value Date Recorded Sex Assigned at Not on file Legal 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
--- OUTSIDE RECORDS SUMMARY | 2025-04-21 20:10 | XMS_ITS | Encounter Summary ---
Author Organization [facility] Address [address] [place] [address] Care Team Providers Care Water Pollution Scientist Name Role Phone Cuba Solano MD Primary Care Provider +1 [phone] Encounter Details Date Type Department Care Team (Latest Contact Info) Description 11/22/2000 Outpatient Historical [facility] Family Medicine [place] [address] [address] Donte Borrego MD NO ADDRESS ON FILE Other and unspecified hyperlipidemia (Primary Dx); Encounter for long-term (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 of other medications Social History Tobacco Use Types Packs/Day Years Used Date Smoking Tobacco: Never Assessed Sex and Gender Information Value Date Recorded Sex Assigned at Not on file 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
--- OUTSIDE RECORDS SUMMARY | 2025-04-21 20:10 | XMS_ITS | Encounter Summary ---
Author Organization [facility] Address [address] [place] [address] Care Team Providers Care Marketing Communications Associate Name Role Phone Cuba Solano MD Primary Care Provider +1 [phone] Encounter Details Date Type Department Care Team (Latest Contact Info) Description 07/11/2001 Outpatient Historical [facility] Family Medicine [place] [id number] [address] Donte Borrego MD NO ADDRESS ON FILE Benign hypertension (Primary Dx); OSTEOARTHROS NOS-UNSPEC Social History Tobacco Use Types Packs/Day Years Used Date Smoking Tobacco: Never Assessed Sex and Gender Information Value Date Recorded Sex Assigned at Not on file Legal 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
--- OUTSIDE RECORDS SUMMARY | 2025-04-21 20:10 | XMS_ITS | Encounter Summary ---
Author Organization [facility] Address [address] [place] [address] Care Team Providers Care Freelance Interpreter/Translator Name Role Phone Cuba Solano MD Primary Care Provider +1 [phone] Encounter Details Date Type Department Care Team (Late st Contact Info) Description 03/30/2004 Outpatient Historical [facility] [address] [place] [address] [place] [address] Social History Tobacco Use Types Packs/Day Years Used Date Smoking Tobacco: Never Assessed Sex and Gender Information Value Date Recorded Sex Assigned at Not on file Legal Sex Male 2:49 AM PUMP ATTENDANT Gender Identity Not on file Sexual Orientation Not on file documented as of this encounter Plan of Treatment Not on file documented as of this encounter Visit Diagnoses Not on filedocumented in this encounter Care Teams Freelance Interpreter/Translator Relationship Specialty Start Date End Date Cuba Solano MD PCP - General 07/11/09 documented as of this encounter
--- OUTSIDE RECORDS SUMMARY | 2025-04-21 20:10 | XMS_ITS | Encounter Summary ---
Author Organization [facility] Address [address] [place] [address] Care Team Providers Care Mule Packer Name Role Phone Cuba Solano MD Primary Care Provider +1 [phone] Encounter Details Date Type Department Care Team (Latest Contact Info) Description 03/30/2004 Outpatient Historical [facility] [address] [place] [address] [place] [address] Kvng Kilpatrick MD NO ADDRESS ON FILE HYPERSOMNI W SLEEP APNEA (Primary Dx) Social History Tobacco Use Types Packs/Day Years Used Date Smoking Tobacco: Never Assessed Sex and Gender Information Value Date Recorded Sex Assigned at Not on file Legal Sex Male 2:49 AM BUTCHER MEAT Gender Identity Not on file Sexual Orientation Not on file documented as of this encounter Plan of Treatment Not on file documented as of this encounter Visit Diagnoses Diagnosis Hypersomnia with sleep apnea, unspecified- Primary documented in this encounter Care Teams Mule Packer Relationship Specialty Start Date End Date Cuba Solano MD PCP - General 07/11/09 documented as of this encounter
--- OUTSIDE RECORDS SUMMARY | 2025-04-21 20:10 | XMS_ITS | Encounter Summary ---
Author Organization [facility] Address [address] [place] [address] Care Team Providers Care Cloth Cutting Machine Operator Name Role Phone Cuba Solano MD Primary Care Provider +1 -[phone] Encounter Details Date Type Department Care Team (Latest Contact Info) Description 02/01/2002 Outpatient Historical [facility] Family Medicine [place] [id number] [address] Donte Borrego MD NO ADDRESS ON FILE HYPERTENSION NOS (Primary Dx); LIPOMA NOS; DISEASES OF LIPS Social History Tobacco Use Types Packs/Day Years Used Date Smoking Tobacco: Never Assessed Sex and Gender Information Value Date Recorded Sex Assigned at Not on file Legal 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
--- OUTSIDE RECORDS SUMMARY | 2025-04-21 20:10 | XMS_ITS | Encounter Summary ---
Author Organization [facility] Address [address] [place] [address] Care Team Providers Care Biological Photographer Name Role Phone Cuba Solano MD Primary Care Provider +1 [phone] Encounter Details Date Type Department Care Team (Latest Contact Info) Description 09/06/2000 Outpatient Historical [facility] [place] [address] [place] [address] Other convulsions (Primary Dx) Social History Tobacco Use Types Packs/Day Years Used Date Smoking Tobacco: Never Assessed Sex and Gender Information Value Date Recorded Sex Assigned at Not on file Legal 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
--- OUTSIDE RECORDS SUMMARY | 2025-04-21 20:10 | XMS_ITS | Encounter Summary ---
Author Organization [facility] Address [address] [place] [address] Care Team Providers Care Representative Personal Service Name Role Phone Cuba Solano MD Primary Care Provider +1 [phone] Encounter Details Date Type Department Care Team (Latest Contact Info) Description 04/07/2001 Outpatient Historical [facility] Family Medicine [place] [address] [address] Donte Borrego MD NO ADDRESS ON FILE HYPERTENSION NOS (Primary Dx); AFTERCARE SNF USE MEDICATN; ANEMIA NOS; VACCINE FOR INFLUENZA Social History Tobacco Use Types Packs/Day Years Used Date Smoking Tobacco: Never Assessed Sex and Gender Information Value Date Recorded Sex Assigned at Not on file 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
--- OUTSIDE RECORDS SUMMARY | 2025-04-21 20:10 | XMS_ITS | Encounter Summary ---
Author Organization [facility] Address [address] [place] [address] Care Team Providers Care Spinneret Person Name Role Phone Cuba Solano MD Primary Care Provider +1 -[phone] Encounter Details Date Type Department Care Team (Latest Contact Info) Description 01/25/2002 Outpatient Historical [facility] Family Medicine [place] [address] [address] Donte Borrego MD NO ADDRESS ON FILE OTHER MALAISE AND FATIGUE (Primary Dx) Social History Tobacco Use Types Packs/Day Years Used Date Smoking Tobacco: Never Assessed Sex and Gender Information Value Date Recorded Sex Assigned at Not on file 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
--- OUTSIDE RECORDS SUMMARY | 2025-04-21 20:10 | XMS_ITS | Encounter Summary ---
Author Organization [facility] Address [address] [place] [address] Care Team Providers Care Lead Investigator Name Role Phone Cuba Solano MD Primary Care Provider +1 [phone] Encounter Details Date Type Department Care Team (Latest Contact Info) Description 10/03/2001 Outpatient Historical [facility] Family Medicine [place] [address] [address] Donte Borrego MD NO ADDRESS ON FILE HYPERTENSION NOS (Primary Dx); ALLERGY, UNSPECIFIED; AMPUT ABOVE KNEE, UNILAT; OSTEOARTHROS NOS-UNSPEC Social History Tobacco Use Types Packs/Day Years Used Date Smoking Tobacco: Never Assessed Sex and Gender Information Value Date Recorded Sex Assigned at Not on file Legal Sex Male 2:49 AM CERTIFIED LOW VISION 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
--- OUTSIDE RECORDS SUMMARY | 2025-04-21 20:10 | XMS_ITS | Encounter Summary ---
Author Organization [facility] Address [address] [place] [address] Care Team Providers Care Spray Drier Operator Helper Name Role Phone Cuba Solano MD Primary Care Provider +1 [phone] Encounter Details Date Type Department Care Team (Latest Contact Info) Description 07/07/2000 Outpatient Historical [facility] Family Medicine [place] [address] [address] Donte Borrego MD NO [...] keratosis documented in this encounter Care Teams Spray Drier Operator Helper Relationship Specialty Start Date End Date Cuba Solano MD PCP - General 07/11/09 documented as of this encounter
--- OUTSIDE RECORDS SUMMARY | 2025-04-21 20:10 | XMS_ITS | Encounter Summary ---
Author Organization [facility] Address [address] [place] [address] Care Team Providers Care Concessionist Name Role Phone Cuba Solano MD Primary Care Provider +1 [phone] Encounter Details Date Type Department Care Team (Latest Contact Info) Description 03/03/2002 Outpatient [facility] Family Medicine [place] [address] [address] Donte Borrego MD NO ADDRESS ON FILE OTHER MALAISE AND FATIGUE (Primary Dx); B-COMPLEX DEFIC NEC Social History Tobacco Use Types Packs/Day Years Used Date Smoking Tobacco: Never Assessed Sex and Gender Information Value Date Recorded Sex Assigned at Not on file Legal Sex Male 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
--- OUTSIDE RECORDS SUMMARY | 2025-04-21 20:10 | XMS_ITS | Encounter Summary ---
Author Organization [facility] Address [address] [place] [address] Care Team Providers Care Soccer Player Name Role Phone Cuba Solano MD Primary Care Provider +1 [phone] Encounter Details Date Type Department Care Team (Latest Contact Info) Description 04/02/2004 Outpatient Historical [facility] Family Medicine [place] [address] [address] Donte Borrego MD NO ADDRESS ON FILE DIABETES MELLITUS TYPE II UNCONTR UNCOMPL (Primary Dx); GOUT NOS Social History Tobacco Use Types Packs/Day Years Used Date Smoking Tobacco: Never Assessed Sex and Gender Information Value Date Recorded Sex Assigned at Not on file Legal 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
--- OUTSIDE RECORDS SUMMARY | 2025-04-21 20:10 | XMS_ITS | Encounter Summary ---
Author Organization [facility] Address [address] [place] [address] Care Team Providers Care Shredder Tender Peat Name Role Phone Cuba Solano MD Primary Care Provider +1 [phone] Encounter Details Date Type Department Care Team (Latest Contact Info) Description 09/15/2000 Outpatient Historical [facility] Family Medicine [place] [address] [address] Donte Borrego MD NO ADDRESS ON FILE Unspecified essential hypertension (Primary Dx); Type II or unspecified type diabetes mellitus 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, not stated as uncontrolled Social History Tobacco Use Types Packs/Day Years Used Date Smoking Tobacco: Never Assessed Sex and Gender Information Value Date Recorded Sex Assigned at Not on file Legal Sex Male 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
--- OUTSIDE RECORDS SUMMARY | 2025-04-21 20:10 | XMS_ITS | Encounter Summary ---
Author Organization [facility] Address [address] [place] [address] Care Team Providers Care Metal Sprayer Name Role Phone Cuba Solano MD Primary Care Provider +1 [phone] Encounter Details Date Type Department Care Team (Latest Contact Info) Description 01/04/2002 Outpatient Historical [facility] Family Medicine [place] [address] [address] Donte Borrego MD NO ADDRESS ON FILE ACUTE PHARYNGITIS (Primary Dx); ALLERGIC RHINITIS NEC Social History Tobacco Use Types Packs/Day Years Used Date Smoking Tobacco: Never Assessed Sex and Gender Information Value Date Recorded Sex Assigned at Not on file Legal 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
--- OUTSIDE RECORDS SUMMARY | 2025-04-21 20:10 | XMS_ITS | Encounter Summary ---
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
--- OUTSIDE RECORDS SUMMARY | 2025-04-21 20:10 | XMS_ITS | Encounter Summary ---
Author Organization [facility] Address [address] [place] [address] Care Team Providers Care Natural Resources Specialist Name Role Phone Cuba Solano MD Primary Care Provider +1 [phone] Encounter Details Date Type Department Care Team (Latest Contact Info) Description 05/11/2001 Outpatient Historical [facility] Family Medicine Angel[place] [address] [address] Donte Borrego MD NO ADDRESS ON FILE ACUTE SINUSITIS NOS (Primary Dx); CONJUNCTIVAL HEMORRHAGE; HYPERTENSION NOS Social History Tobacco Use Types Packs/Day Years Used Date Smoking Tobacco: Never Assessed Sex and Gender Information Value Date Recorded Sex Assigned at Not on file Legal 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
--- OUTSIDE RECORDS SUMMARY | 2025-04-21 20:10 | XMS_ITS | Encounter Summary ---
Author Organization [facility] Address [address] [place] [address] Care Team Providers Care Shirt Trimmer Name Role Phone Cuba Solano MD Primary Care Provider +1 [phone] Encounter Details Date Type Department Care Team (Latest Contact Info) Description 01/07/2001 Outpatient Historical [facility] Family Medicine [place] [facility] [address] [address] Zara Royal, DO [address] [place] [address] Unspecified essential hypertension (Primary Dx); Other and unspecified hyperlipidemia; Allergy, unspecified not elsewhere classified; Traumatic amputation of leg(s) (complete) (partial), unilateral, at or above knee, 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 Social History Tobacco Use Types Packs/Day Years Used Date Smoking Tobacco: Never Assessed Sex and Gender Information Value Date Recorded Sex Assigned at Not on file Legal Sex Male 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
--- OUTSIDE RECORDS SUMMARY | 2025-04-21 20:10 | XMS_ITS | Encounter Summary ---
Author Organization [facility] Address [address] [facility] [address] Attn: [place] [address] Care Team Providers Care Lead Javascript Engineer Name Role Phone Cuba Solano MD Primary Care Provider +1 -[phone] Encounter Details Date Type Department Care Team (Late st Contact Info) Description 10/03/2001 Outpatient Historical Donte Borrego MD NO ADDRESS ON FILE Social History Tobacco Use Types Packs/Day Years Used Date Smoking Tobacco: Never Assessed Sex and Gender Information Value Date Recorded Sex Assigned at Not on file Legal Sex Male 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
--- OUTSIDE RECORDS SUMMARY | 2025-04-21 20:10 | XMS_ITS | Encounter Summary ---
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
--- OUTSIDE RECORDS SUMMARY | 2025-04-21 20:10 | XMS_ITS | Encounter Summary ---
Author Organization [facility] Address [address] [place] [address] Care Team Providers Care Hazardous Materials Driver Name Role Phone Cuba Solano MD Primary Care Provider +1 [phone] Encounter Details Date Type Department Care Team (Late st Contact Info) Description 03/14/2004 Outpatient Historical [facility] [place] [address] [place] [address] Social History Tobacco Use Types Packs/Day Years Used Date Smoking Tobacco: Never Assessed Sex and Gender Information Value Date Recorded Sex Assigned at Not on file Legal Sex Male 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
--- OUTSIDE RECORDS SUMMARY | 2025-04-21 20:10 | XMS_ITS | Encounter Summary ---
Author Organization [facility] Address [address] [place] [address] Care Team Providers Care Oil And Gas Field Technician Name Role Phone Cuba Solano MD Primary Care Provider +1 [phone] Encounter Details Date Type Department Care Team (Latest Contact Info) Description 04/13/2002 Outpatient Historical [facility] Family Medicine [place] [id number] [address] [address] Donte Borrego MD NO ADDRESS ON FILE ACUTE URI NOS (Primary Dx) Social History Tobacco Use Types Packs/Day Years Used Date Smoking Tobacco: Never Assessed Sex and Gender Information Value Date Recorded Sex Assigned at Not on file 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
--- OUTSIDE RECORDS SUMMARY | 2025-04-21 20:10 | XMS_ITS | Encounter Summary ---
Author Organization [facility] Address [address] [place] [address] Care Team Providers Care Equipment Operator Wage Hand Name Role Phone Cuba Solano MD Primary Care Provider +1 [phone] Encounter Details Date Type Department Care Team (Latest Contact Info) Description 11/01/2001 Outpatient Historical [facility] Family Medicine [place] [address] [address] Donte Borrego MD NO ADDRESS ON FILE ACUTE SINUSITIS NOS (Primary Dx); ALLERGIC RHINITIS NEC; Benign hypertension Social History Tobacco Use Types Packs/Day Years Used Date Smoking Tobacco: Never Assessed Sex and Gender Information Value Date Recorded Sex Assigned at Not on file Legal Sex Male 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
--- OUTSIDE RECORDS SUMMARY | 2025-04-21 20:11 | XMS_ITS | Encounter Summary ---
Author Organization [facility] Address [address] [place] [address] Care Team Providers Care Event Decorator Name Role Phone Cuba Solano MD Primary Care Provider +1 [phone] Encounter Details Date Type Department Care Team (Latest Contact Info) Description 01/10/2004 Outpatient Historical [facility] Family Medicine [place] [address] [address] Donte Borrego MD NO ADDRESS ON FILE Pain in limb (Primary Dx); JOINT PAIN-ANKLE Social History Tobacco Use Types Packs/Day Years Used Date Smoking Tobacco: Never Assessed Sex and Gender Information Value Date Recorded Sex Assigned at Not on file Legal 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
--- OUTSIDE RECORDS SUMMARY | 2025-04-21 20:11 | XMS_ITS | Encounter Summary ---
Author Organization [facility] Address [address] [place] [address] Care Team Providers Care Shear Tender Name Role Phone Cuba Solano MD Primary Care Provider +1 [phone] Encounter Details Date Type Department Care Team (Latest Contact Info) Description 10/12/2003 Outpatient Historical [facility] Family Medicine [place] [address] [address] Donte Borrego MD NO ADDRESS ON FILE GASTROINTEST HEMORR NOS (Primary Dx) Social History Tobacco Use Types Packs/Day Years Used Date Smoking Tobacco: Never Assessed Sex and Gender Information Value Date Recorded Sex Assigned at Not on file Legal Sex Male 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
--- OUTSIDE RECORDS SUMMARY | 2025-04-21 20:11 | XMS_ITS | Encounter Summary ---
Author Organization [facility] Address [address] [place] [address] Care Team Providers Care Cell Attendant Name Role Phone Cuba Solano MD Primary Care Provider +1 [phone] Encounter Details Date Type Department Care Team (Latest Contact Info) Description 07/17/2003 Outpatient Historical [facility] Family Medicine [place] [address] [address] Donte Borrego MD NO ADDRESS ON FILE DERMATITIS NOS (Primary Dx); ALLERGY, UNSPECIFIED Social History Tobacco Use Types Packs/Day Years Used Date Smoking Tobacco: Never Assessed Sex and Gender Information Value Date Recorded Sex Assigned at Not on file Legal Sex Male 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
--- OUTSIDE RECORDS SUMMARY | 2025-04-21 20:11 | XMS_ITS | Encounter Summary ---
Author Organization [facility] Address [address] [place] [address] Care Team Providers Care Electrical Design Technician Name Role Phone Cuba Solano MD Primary Care Provider +1 -[phone] Encounter Details Date Type Department Care Team (Latest Contact Info) Description 11/02/2003 Outpatient Historical [facility] Family Medicine [place] [address] [address] Donte Borrego MD NO ADDRESS ON FILE HYPERTENSION NOS (Primary Dx) Social History Tobacco Use Types Packs/Day Years Used Date Smoking Tobacco: Never Assessed Sex and Gender Information Value Date Recorded Sex Assigned at Not on file Legal 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
--- OUTSIDE RECORDS SUMMARY | 2025-04-21 20:11 | XMS_ITS | Encounter Summary ---
Author Organization [facility] Address [address] [place] [address] Care Team Providers Care Dairy Equipment Mechanic Name Role Phone Cuba Solano MD Primary Care Provider +1 [phone] Encounter Details Date Type Department Care Team (Latest Contact Info) Description 08/22/2001 Outpatient Historical [facility] [place] [id number] [address] [address] Donte Borrego MD NO ADDRESS ON FILE HYPERTENSION NOS (Primary Dx); TACHYCARDIA NOS Social History Tobacco Use Types Packs/Day Years Used Date Smoking Tobacco: Never Assessed Sex and Gender Information Value Date Recorded Sex Assigned at Not on file Legal Sex Male 2: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
--- OUTSIDE RECORDS SUMMARY | 2025-04-21 20:11 | XMS_ITS | Encounter Summary ---
Author Organization [facility] Address [address] [place] [address] Care Team Providers Care Warper Fixer Name Role Phone Cuba Solano MD Primary Care Provider +1 [phone] Encounter Details Date Type Department Care Team (Latest Contact Info) Description 09/11/2003 Outpatient [facility] Family Medicine [place] [address]392 [address] [address] Keyona Mccloud, LUCIEN NO ADDRESS ON FILE ALLERGY, UNSPECIFIED (Primary Dx); DERMATITIS NOS; HYPERTENSION NOS; HYPERLIPIDEMIA NEC/NOS Social History Tobacco Use Types Packs/Day Years Used Date Smoking Tobacco: Never Assessed Sex and Gender Information Value Date Recorded Sex Assigned at Not on file Legal Sex Male 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
--- OUTSIDE RECORDS SUMMARY | 2025-04-21 20:11 | XMS_ITS | Encounter Summary ---
Author Organization [facility] Address [address] [place] [address] Care Team Providers Care Police Records Clerk Name Role Phone Cuba Solano MD Primary Care Provider +1 [phone] Encounter Details Date Type Department Care Team (Latest Contact Info) Description 01/05/2003 Outpatient Historical [facility] Cardi[facility] Services [address] [place] [address] Non-Staff, Physician NO ADDRESS ON FILE PAIN IN LIMB (Primary Dx) Social History Tobacco Use Types Packs/Day Years Used Date Smoking Tobacco: Never Assessed Sex and Gender Information Value Date Recorded Sex Assigned at Not on file Legal Sex Male 2: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
--- OUTSIDE RECORDS SUMMARY | 2025-04-21 20:11 | XMS_ITS | Encounter Summary ---
Author Organization [facility] Address [address] [place] [address] Care Team Providers Care Mileage Clerk Name Role Phone Cuba Solano MD Primary Care Provider +1 [phone] Encounter Details Date Type Department Care Team (Latest Contact Info) Description 10/02/2002 Outpatient Historical [facility] Family Medicine Angelica [address] [address] Donte Borrego MD NO ADDRESS ON FILE ANEMIA NOS (Primary Dx) Social History Tobacco Use Types Packs/Day Years Used Date Smoking Tobacco: Never Assessed Sex and Gender Information Value Date Recorded Sex Assigned at Not on file Legal Sex Male 2:49 AM CRAS Gender Identity Not on file Sexual Orientation Not on file documented as of this encounter Plan of Treatment Not on file documented as of this encounter Visit Diagnoses Diagnosis Anemia, unspecified- Primary documented in this encounter Care Teams Mileage Clerk Relationship Specialty Start Date End Date Cuba Solano MD PCP - General 07/11/09 documented as of this encounter
--- OUTSIDE RECORDS SUMMARY | 2025-04-21 20:11 | XMS_ITS | Encounter Summary ---
Author Organization [facility] Address [address] [place] [address] Care Team Providers Care Call Or Contact Centre Operator Name Role Phone Cuba Solano MD Primary Care Provider +1 [phone] Encounter Details Date Type Department Care Team (Latest Contact Info) Description 05/30/2002 Outpatient Historical [facility] Family Medicine Angel[place] [address] [address] Donte Borrego MD NO ADDRESS ON FILE ANEMIA NOS (Primary Dx) Social History Tobacco Use Types Packs/Day Years Used Date Smoking Tobacco: Never Assessed Sex and Gender Information Value Date Recorded Sex Assigned at Not on file Legal Sex Male 2: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
--- OUTSIDE RECORDS SUMMARY | 2025-04-21 20:11 | XMS_ITS | Encounter Summary ---
Author Organization [facility] Address [address] [place] [address] Care Team Providers Care Project Intern Name Role Phone Cuba Solano MD Primary Care Provider +1 [phone] Encounter Details Date Type Department Care Team (Latest Contact Info) Description 07/03/2002 Outpatient Historical [facility] Family Medicine [place] [id number] [address] [address] Donte Borrego MD NO ADDRESS ON FILE OTHER MALAISE AND FATIGUE (Primary Dx) Social History Tobacco Use Types Packs/Day Years Used Date Smoking Tobacco: Never Assessed Sex and Gender Information Value Date Recorded Sex Assigned at Not on file Legal Sex Male 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
--- OUTSIDE RECORDS SUMMARY | 2025-04-21 20:11 | XMS_ITS | Encounter Summary ---
Author Organization [facility] Address [address] [place] [address] Care Team Providers Care Sewer Line Repairer Name Role Phone Cuba Solano MD Primary Care Provider +1 [phone] Encounter Details Date Type Department Care Team (Latest Contact Info) Description 11/07/2001 Outpatient [facility] Family Medicine [place] [address] [address] Keyona Mccloud, LUCIEN NO ADDRESS ON FILE HORDEOLUM EXTERNUM (Primary Dx); ALLERGY, UNSPECIFIED Social History Tobacco Use Types Packs/Day Years Used Date Smoking Tobacco: Never Assessed Sex and Gender Information Value Date Recorded Sex Assigned at Not on file Legal 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
--- OUTSIDE RECORDS SUMMARY | 2025-04-21 20:11 | XMS_ITS | Encounter Summary ---
Author Organization [facility] Address [address] [place] [address] Care Team Providers Care Stone Polisher Name Role Phone Cuba Solano MD Primary Care Provider +1 [phone] Encounter Details Date Type Department Care Team (Latest Contact Info) Description 01/03/2003 Outpatient Historical [facility] Family Medicine [place] 422432 [address] [address] Donte Borrego MD NO ADDRESS ON FILE ACUTE PHARYNGITIS (Primary Dx); ACUTE URI NOS Social History Tobacco Use Types Packs/Day Years Used Date Smoking Tobacco: Never Assessed Sex and Gender Information Value Date Recorded Sex Assigned at Not on file Legal Sex Male 2: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
--- OUTSIDE RECORDS SUMMARY | 2025-04-21 20:11 | XMS_ITS | Encounter Summary ---
Author Organization [facility] Address [address] [place] [address] Care Team Providers Care Head Sulfide Operator Name Role Phone Cuba Solano MD Primary Care Provider +1 [phone] Encounter Details Date Type Department Care Team (Latest Contact Info) Description 11/14/2001 Outpatient [facility] Family Medicine [place] 579262 [address] [address] Keyona Mccloud, LUCIEN NO ADDRESS ON FILE HORDEOLUM EXTERNUM (Primary Dx); ACUTE URI NOS Social History Tobacco Use Types Packs/Day Years Used Date Smoking Tobacco: Never Assessed Sex and Gender Information Value Date Recorded Sex Assigned at Not on file Legal Sex Male 2:49 AM DEPUTY OF COUNTER INTELLIGENCE Gender Identity Not on file Sexual Orientation Not on file documented as of this encounter Plan of Treatment Not on file documented as of this encounter Visit Diagnoses Diagnosis Hordeolum externum- Primary Acute upper respiratory infections of unspecified site documented in this encounter Care Teams Head Sulfide Operator Relationship Specialty Start Date End Date Cuba Solano MD PCP - General 07/11/09 documented as of this encounter
--- OUTSIDE RECORDS SUMMARY | 2025-04-21 20:11 | XMS_ITS | Encounter Summary ---
Author Organization [facility] Address [address] [place] [address] Care Team Providers Care Accident Report Clerk Name Role Phone Cuba Solano MD Primary Care Provider +1 [phone] Encounter Details Date Type Department Care Team (Latest Contact Info) Description 12/25/2003 Outpatient Historical [facility] Family Medicine Angel[place] [address] [address] Donte Borrego MD NO ADDRESS ON FILE EDEMA (Primary Dx); APNEA; POLYP OF NASAL CAVITY Social History Tobacco Use Types Packs/Day Years Used Date Smoking Tobacco: Never Assessed Sex and Gender Information Value Date Recorded Sex Assigned at Not on file Legal Sex Male 2:49 AM STRAP SEWER Gender Identity Not on file Sexual Orientation Not on file documented as of this encounter Plan of Treatment Not on file documented as of this encounter Visit Diagnoses Diagnosis Edema- Primary Apnea Polyp of nasal cavity documented in this encounter Care Teams Accident Report Clerk Relationship Specialty Start Date End Date Cuba Solano MD PCP - General 07/11/09 documented as of this encounter
--- OUTSIDE RECORDS SUMMARY | 2025-04-21 20:11 | XMS_ITS | Encounter Summary ---
Author Organization [facility] Address [address] [facility] Attn: [place] [address] Care Team Providers Care Plsql Developer Name Role Phone Cuba Solano MD Primary Care Provider +1 [phone] Encounter Details Date Type Department Care Team (Late st Contact Info) Description 01/08/2000 Outpatient Historical Donte Borrego MD NO ADDRESS ON FILE Social History Tobacco Use Types Packs/Day Years Used Date Smoking Tobacco: Never Assessed Sex and Gender Information Value Date Recorded Sex Assigned at Not on file Legal Sex Male 2:49 AM ACID CONCENTRATOR Gender Identity Not on file Sexual Orientation Not on file documented as of this encounter Plan of Treatment Not on file documented as of this encounter Visit Diagnoses Not on filedocumented in this encounter Care Teams Plsql Developer Relationship Specialty Start Date End Date Cuba Solano MD PCP - General 07/11/09 documented as of this encounter
--- OUTSIDE RECORDS SUMMARY | 2025-04-21 20:11 | XMS_ITS | Encounter Summary ---
Author Organization [facility] Address [address] [place] [address] Care Team Providers Care Guard Dance Hall Name Role Phone Cuba Solano MD Primary Care Provider +1 [phone] Encounter Details Date Type Department Care Team (Latest Contact Info) Description 09/04/2003 Outpatient Historical [facility] Family Medicine [place] [facility] [address] [address] Huey Upton Jr., MD [address] [place] [address] 248 [facility] [address] [place] [address] OTHER MALAISE AND FATIGUE (Primary Dx) Social History Tobacco Use Types Packs/Day Years Used Date Smoking Tobacco: Never Assessed Sex and Gender Information Value Date Recorded Sex Assigned at Not on file Legal Sex Male 2: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
--- OUTSIDE RECORDS SUMMARY | 2025-04-21 20:11 | XMS_ITS | Encounter Summary ---
Author Organization [facility] Address [address] [place] [address] Care Team Providers Care Cloth Examiner Hand Name Role Phone Cuba Solano MD Primary Care Provider +1 [phone] Encounter Details Date Type Department Care Team (Latest Contact Info) Description 05/17/2003 Outpatient Historical [facility] Family Medicine [place] [address]782 [address] [address] Keyona Mccloud, LUCIEN NO ADDRESS ON FILE AFTERCARE CARE HOME USE MEDICATN (Primary Dx) Social History Tobacco Use Types Packs/Day Years Used Date Smoking Tobacco: Never Assessed Sex and Gender Information Value Date Recorded Sex Assigned at Not on file Legal Sex Male 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
--- OUTSIDE RECORDS SUMMARY | 2025-04-21 20:11 | XMS_ITS | Encounter Summary ---
Author Organization [facility] Address [address] [place] [address] Care Team Providers Care Chain Maker Loom Control Name Role Phone Cuba Solano MD Primary Care Provider +1 [phone] Encounter Details Date Type Department Care Team (Latest Contact Info) Description 09/01/2002 Outpatient Historical [facility] Family Medicine Angel[place] [address] [address] Donte Borrego MD NO ADDRESS ON FILE ANEMIA NOS (Primary Dx) Social History Tobacco Use Types Packs/Day Years Used Date Smoking Tobacco: Never Assessed Sex and Gender Information Value Date Recorded Sex Assigned at Not on file 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
--- OUTSIDE RECORDS SUMMARY | 2025-04-21 20:11 | XMS_ITS | Encounter Summary ---
Author Organization [facility] Address [address] [place] [address] Care Team Providers Care Dovetailer Name Role Phone Cuba Solano MD Primary Care Provider +1 -[phone] Encounter Details Date Type Department Care Team (Latest Contact Info) Description 02/01/2004 Outpatient Historical [facility] Family Medicine [place] [address] [address] Donte Borrego MD NO ADDRESS ON FILE ANEMIA NOS (Primary Dx); AFTERCARE CORRECTION USE MEDICATN; GOUT NOS Social History Tobacco Use Types Packs/Day Years Used Date Smoking Tobacco: Never Assessed Sex and Gender Information Value Date Recorded Sex Assigned at Not on file 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
--- OUTSIDE RECORDS SUMMARY | 2025-04-21 20:11 | XMS_ITS | Encounter Summary ---
Author Organization [facility] Address [address] [place] [address] Care Team Providers Care Staff Assistant Name Role Phone Cuba Solano MD Primary Care Provider +1 -[phone] Encounter Details Date Type Department Care Team (Latest Contact Info) Description 08/29/2001 Outpatient Historical [facility] Family Medicine [place] 0[address]212 [address] [address] Donte Borrego MD NO ADDRESS ON FILE Benign hypertension (Primary Dx); TACHYCARDIA NOS Social History Tobacco Use Types Packs/Day Years Used Date Smoking Tobacco: Never Assessed Sex and Gender Information Value Date Recorded Sex Assigned at Not on file Legal 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
--- OUTSIDE RECORDS SUMMARY | 2025-04-21 20:11 | XMS_ITS | Encounter Summary ---
Author Organization [facility] Address [address] [place] [address] Care Team Providers Care Shoemaking Finisher Name Role Phone Cuba Solano MD Primary Care Provider +1 -[phone] Encounter Details Date Type Department Care Team (Latest Contact Info) Description 08/03/2002 Outpatient Historical [facility] Family Medicine [place] 066552 [address] [address] Donte Borrego MD NO ADDRESS ON FILE OTHER MALAISE AND FATIGUE (Primary Dx) Social History Tobacco Use Types Packs/Day Years Used Date Smoking Tobacco: Never Assessed Sex and Gender Information Value Date Recorded Sex Assigned at Not on file 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
--- OUTSIDE RECORDS SUMMARY | 2025-04-21 20:11 | XMS_ITS | Encounter Summary ---
Author Organization [facility] Address [address] [place] [address] Care Team Providers Care Template Inspector Name Role Phone Cuba Solano MD Primary Care Provider +1 -[phone] Encounter Details Date Type Department Care Team (Latest Contact Info) Description 08/07/2003 Outpatient Historical [facility] Family Medicine [place] [id number] [address] [address] Donte Borrego MD NO ADDRESS ON FILE LUPUS ERYTHEMATOSUS (Primary Dx); ALLERGY, UNSPECIFIED Social History Tobacco Use Types Packs/Day Years Used Date Smoking Tobacco: Never Assessed Sex and Gender Information Value Date Recorded Sex Assigned at Not on file Legal 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
--- OUTSIDE RECORDS SUMMARY | 2025-04-21 20:11 | XMS_ITS | Encounter Summary ---
Author Organization [facility] Address [address] [place] [address] Care Team Providers Care Manager French Name Role Phone Cuba Solano MD Primary Care Provider +1 -[phone] Encounter Details Date Type Department Care Team (Latest Contact Info) Description 01/03/2004 Outpatient Historical [facility] Family Medicine [place] 7[address]182 [address] [address] Keyona Mccloud, LUCIEN NO ADDRESS ON FILE ANEMIA NOS (Primary Dx) Social History Tobacco Use Types Packs/Day Years Used Date Smoking Tobacco: Never Assessed Sex and Gender Information Value Date Recorded Sex Assigned at Not on file Legal Sex Male 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
--- OUTSIDE RECORDS SUMMARY | 2025-04-21 20:11 | XMS_ITS | Encounter Summary ---
Author Organization [facility] ([facility]: [place])[facility] Address [address] [place] [address] Care Team Providers Care Clinical Counselor Name Role Phone Cuba Solano MD Primary Care Provider +1 [phone] Encounter Details Date Type Department Care Team (Latest Contact Info) Description 08/15/1999 Outpatient Historical [facility] [place] [place] [address] [place] [address] Other convulsions (Primary Dx) Social History Tobacco Use Types Packs/Day Years Used Date Smoking Tobacco: Never Assessed Sex and Gender Information Value Date Recorded Sex Assigned at Not on file Legal Sex Male 2: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
--- OUTSIDE RECORDS SUMMARY | 2025-04-21 20:11 | XMS_ITS | Encounter Summary ---
Author Organization [facility] Address [address] [place] [address] Care Team Providers Care Cut Tobacco Bulker Name Role Phone Cuba Solano MD Primary Care Provider +1 -[phone] Encounter Details Date Type Department Care Team (Late st Contact Info) Description 11/27/2003 Outpatient Historical [facility] Family Medicine [place] [address] [address] Social History Tobacco Use Types Packs/Day Years Used Date Smoking Tobacco: Never Assessed Sex and Gender Information Value Date Recorded Sex Assigned at Not on file Legal Sex Male 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
--- OUTSIDE RECORDS SUMMARY | 2025-04-21 20:11 | XMS_ITS | Encounter Summary ---
Author Organization [facility] Address [address] [place] [address] Care Team Providers Care Ux Ui Designer Name Role Phone Cuba Solano MD Primary Care Provider +1 [phone] Encounter Details Date Type Department Care Team (Latest Contact Info) Description 03/05/2004 Outpatient Historical [facility] Family Medicine [place] [address] [address] Donte Borrego MD NO ADDRESS ON FILE DIABETES MELLITUS TYPE II UNCONTR UNCOMPL (Primary Dx); ACUTE URI NOS Social History Tobacco Use Types Packs/Day Years Used Date Smoking Tobacco: Never Assessed Sex and Gender Information Value Date Recorded Sex Assigned at Not on file Legal 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
--- OUTSIDE RECORDS SUMMARY | 2025-04-21 20:11 | XMS_ITS | Encounter Summary ---
Author Organization [facility] Address [address] [place] [address] Care Team Providers Care Wedding Photographer Name Role Phone Cuba Solano MD Primary Care Provider +1 [phone] Encounter Details Date Type Department Care Team (Latest Contact Info) Description 10/02/[address] 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
--- OUTSIDE RECORDS SUMMARY | 2025-04-21 20:11 | XMS_ITS | Encounter Summary ---
Author Organization [facility] Address [address] [place] [address] Care Team Providers Care Merchandise Handler Name Role Phone Cuba Solano MD Primary Care Provider +1 [phone] Encounter Details Date Type Department Care Team (Latest Contact Info) Description 04/04/2003 Outpatient Historical [facility] Family Medicine [place] 9[address]992 [address] [address] Keyona Mccloud, LUCIEN NO ADDRESS ON FILE OTHER MALAISE AND FATIGUE (Primary Dx) Social History Tobacco Use Types Packs/Day Years Used Date Smoking Tobacco: Never Assessed Sex and Gender Information Value Date Recorded Sex Assigned at Not on file Legal 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
--- OUTSIDE RECORDS SUMMARY | 2025-04-21 20:11 | XMS_ITS | Encounter Summary ---
Author Organization [facility] Address [address] [place] [address] Care Team Providers Care Nib Assembler Name Role Phone Cuba Solano MD Primary Care Provider +1 [phone] Encounter Details Date Type Department Care Team (Latest Contact Info) Description 02/25/2004 Outpatient Historical [facility] Family Medicine [place] [address] [address] Keyona Mccloud FNP NO ADDRESS ON FILE DIABETES MELLITUS TYPE II-UNCOMPL (CMS/HCC) (Primary Dx); ACUTE URI NOS Social History Tobacco Use Types Packs/Day Years Used Date Smoking Tobacco: Never Assessed Sex and Gender Information Value Date Recorded Sex Assigned at Not on file Legal 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
--- OUTSIDE RECORDS SUMMARY | 2025-04-21 20:11 | XMS_ITS | Encounter Summary ---
Author Organization [facility] Address [address] [place] [address] Care Team Providers Care Solar Sales Estimator Name Role Phone Cuba Solano MD Primary Care Provider +1 [phone] Encounter Details Date Type Department Care Team (Latest Contact Info) Description 08/15/1999 Outpatient Historical [facility] Moi George MD [address] [place] [address] Nonspecific abnormal results of liver function study (Primary Dx); Esophageal reflux; Unspecified hemorrhoids 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 Social History Tobacco Use Types Packs/Day Years Used Date Smoking Tobacco: Never Assessed Sex and Gender Information Value Date Recorded Sex Assigned at Not on file 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
--- OUTSIDE RECORDS SUMMARY | 2025-04-21 20:11 | XMS_ITS | Encounter Summary ---
Author Organization [facility] Address [address] [place] [address] Care Team Providers Care Business Management Specialist Name Role Phone Cuba Solano MD Primary Care Provider +1 [phone] Encounter Details Date Type Department Care Team (Latest Contact Info) Description 10/16/2003 Outpatient Historical [facility] [place] [address] [facility] [address] [place] [address] Sandro Haines MD [address] [facility] [address] [place] [address] MELENA, BLOOD IN STOOL (Primary Dx) Social History Tobacco Use Types Packs/Day Years Used Date Smoking Tobacco: Never Assessed Sex and Gender Information Value Date Recorded Sex Assigned at Not on file Legal Sex Male 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
--- OUTSIDE RECORDS SUMMARY | 2025-04-21 20:11 | XMS_ITS | Encounter Summary ---
Author Organization [facility] Address [address] [place] [address] Care Team Providers Care Clerk Guide Name Role Phone Cuba Solano MD Primary Care Provider +1 [phone] Encounter Details Date Type Department Care Team (Latest Contact Info) Description 10/16/2003 Outpatient Historical [facility] [address] 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
--- OUTSIDE RECORDS SUMMARY | 2025-04-21 20:11 | XMS_ITS | Encounter Summary ---
Author Organization [facility] Address [address] [place] [address] Care Team Providers Care Route Salesman Name Role Phone Cuba Solano MD Primary Care Provider +1 [phone] Encounter Details Date Type Department Care Team (Latest Contact Info) Description 12/04/[address] 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
--- OUTSIDE RECORDS SUMMARY | 2025-04-21 20:11 | XMS_ITS | Encounter Summary ---
Author Organization [facility] Address [address] [place] [address] Care Team Providers Care Electric Motor Repair Supervisor Name Role Phone Cuba Sloano MD Primary Care Provider [phone] [phone] Encounter Details Date Type Department Care Team (Latest Contact Info) Description 11/02/2003 Outpatient Historical [facility] Family Medicine Angel[place] [address] [address] Donte Borrego MD NO ADDRESS ON FILE ANEMIA NOS (Primary Dx) Social History Tobacco Use Types Packs/Day Years Used Date Smoking Tobacco: Never Assessed Sex and Gender Information Value Date Recorded Sex Assigned at Not on file Legal 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
--- OUTSIDE RECORDS SUMMARY | 2025-04-21 20:11 | XMS_ITS | Encounter Summary ---
Author Organization [facility] Address [address] [place] [address] Care Team Providers Care Nitriles Lab Technician Name Role Phone Cuba Solano MD Primary Care Provider [phone] [phone] Encounter Details Date Type Department Care Team (Latest Contact Info) Description 10/30/2002 Outpatient Historical [facility] Family Medicine [place] [address] [address] Donte Borrego MD NO ADDRESS ON FILE HYPERLIPIDEMIA NEC/NOS (Primary Dx); HYPERTENSION NOS; ALLERGY, UNSPECIFIED Social History Tobacco Use Types Packs/Day Years Used Date Smoking Tobacco: Never Assessed Sex and Gender Information Value Date Recorded Sex Assigned at Not on file Legal 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
--- OUTSIDE RECORDS SUMMARY | 2025-04-21 20:11 | XMS_ITS | Encounter Summary ---
Author Organization [facility] Address [address] [place] [address] Care Team Providers Care Res Counselor Name Role Phone Cuba Solano MD Primary Care Provider +1 [phone] Encounter Details Date Type Department Care Team (Latest Contact Info) Description 11/01/2002 Outpatient Historical [facility] Family Medicine [place] [address] [address] Donte Borrego MD NO ADDRESS ON FILE OTHER MALAISE AND FATIGUE (Primary Dx) Social History Tobacco Use Types Packs/Day Years Used Date Smoking Tobacco: Never Assessed Sex and Gender Information Value Date Recorded Sex Assigned at Not on file Legal Sex Male 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
--- OUTSIDE RECORDS SUMMARY | 2025-04-21 20:11 | XMS_ITS | Clinical Summary ---
Author Organization [facility] Address [address] [address] Care Team Providers Care Mortuary Technician Name Role Phone Loren Canada MD Primary Care Provider [phone] Allergies Active Allergy Reactions Criticality Noted Date [...] in the evening. Active ergocalciferol 1.25 MG (85525 UT) capsule Take 50,000 Units by mouth [...] Comments Blood Pressure 118/72 05/06/2023 11:00 AM METAL WEIGHER Pulse 81 05/06/2023 11:00 AM METAL WEIGHER Temperature - - Respiratory Rate - - Oxygen Saturation - - Inhaled Oxygen Concentration - - Weight 206 kg (455 lb) 05/06/2023 11:00 AM METAL WEIGHER p er patient Height 182.9 cm (6') 05/06/2023 11:00 AM METAL WEIGHER Body Mass Index 61.71 05/06/2023 11:00 AM METAL WEIGHER Plan of Treatment Health Maintenance Due Date [...] to Health Maintenance Insurance Medicare Medicaid [place] ([id number]) Care Teams Mortuary Technician Relationship Specialty Start Date End Date Loren Canada MD [address] [place] [address] PCP - General Family Medicine 09/22/22
--- OUTSIDE RECORDS SUMMARY | 2025-04-21 20:11 | XMS_ITS | Encounter Summary ---
Author Organization [facility] Address [address] [place] [address] Care Team Providers Care Vocational Rehabilitation Specialist Name Role Phone Cuba Solano MD Primary Care Provider [phone] [phone] Encounter Details Date Type Department Care Team (Latest Contact Info) Description 08/09/2002 Outpatient Historical [facility] Family Medicine [place] 4[address] [address] Donte Borrego MD NO ADDRESS ON FILE Benign hypertension (Primary Dx); ALLERGY, UNSPECIFIED Social History Tobacco Use Types Packs/Day Years Used Date Smoking Tobacco: Never Assessed Sex and Gender Information Value Date Recorded Sex Assigned at Not on file Legal Sex Male 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
--- OUTSIDE RECORDS SUMMARY | 2025-04-21 20:11 | XMS_ITS | Encounter Summary ---
Author Organization [facility] Address [address] [place] [address] Care Team Providers Care Rn Surgical Pcu Name Role Phone Cuba Solano MD Primary Care Provider [phone] [phone] Encounter Details Date Type Department Care Team (Latest Contact Info) Description 11/12/2003 Outpatient Historical [facility] Family Medicine [place] [address] [address] Donte Borrego MD NO ADDRESS ON FILE URIN TRACT INFECTION NOS (Primary Dx) Social History Tobacco Use Types Packs/Day Years Used Date Smoking Tobacco: Never Assessed Sex and Gender Information Value Date Recorded Sex Assigned at Not on file Legal 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
--- OUTSIDE RECORDS SUMMARY | 2025-04-21 20:11 | XMS_ITS | Encounter Summary ---
Author Organization [facility] Address [address] [place] [address] Care Team Providers Care Manager Council Name Role Phone Cuba Solano MD Primary Care Provider [phone] [phone] Encounter Details Date Type Department Care Team (Latest Contact Info) Description 05/04/2003 Outpatient Historical [facility] Family Medicine [place] [id number] [address] Keyona Mccloud, LUCEIN NO ADDRESS ON FILE ACUTE URI NOS (Primary Dx); PERNICIOUS ANEMIA Social History Tobacco Use Types Packs/Day Years Used Date Smoking Tobacco: Never Assessed Sex and Gender Information Value Date Recorded Sex Assigned at Not on file 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
--- OUTSIDE RECORDS SUMMARY | 2025-04-21 20:11 | XMS_ITS | Encounter Summary ---
Author Organization [facility] Address [address] [place] [address] Care Team Providers Care Elastic Attacher Overlock Name Role Phone Cuba Solano MD Primary Care Provider [phone] [phone] Encounter Details Date Type Department Care Team (Latest Contact Info) Description 05/04/2002 Outpatient Historical [facility] Family Medicine [place] [address] [address] Donte Borrego MD NO ADDRESS ON FILE Benign hypertension (Primary Dx); OTALGIA NOS; INFEC OTITIS EXTERNA NOS Social History Tobacco Use Types Packs/Day Years Used Date Smoking Tobacco: Never Assessed Sex and Gender Information Value Date Recorded Sex Assigned at Not on file Legal Sex Male 2:49 AM MRI TECH Gender Identity Not on file Sexual Orientation Not on file documented as of this encounter Plan of Treatment Not on file documented as of this encounter Visit Diagnoses Diagnosis Benign hypertension- Primary Essential hypertension, benign Otalgia, unspecified Infective otitis externa, unspecified documented in this encounter Care Teams Elastic Attacher Overlock Relationship Specialty Start Date End Date Cuba Solano MD PCP - General 07/11/09 documented as of this encounter
--- OUTSIDE RECORDS SUMMARY | 2025-04-21 20:11 | XMS_ITS | Encounter Summary ---
Author Organization [facility] Address [address] [place] [address] Care Team Providers Care Commodity Industry Analyst Name Role Phone Cuba Solano MD Primary Care Provider [phone] [phone] Encounter Details Date Type Department Care Team (Latest Contact Info) Description 01/07/2000 Outpatient Historical [facility] Family Medicine [place] [address] [address] Donte Borrego MD NO ADDRESS ON FILE Other abnormal clinical finding (Primary Dx); Encounter for long-term (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 of other medications; Unspecified essential hypertension Social History Tobacco Use Types Packs/Day Years Used Date Smoking Tobacco: Never Assessed Sex and Gender Information Value Date Recorded Sex Assigned at Not on file 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
--- OUTSIDE RECORDS SUMMARY | 2025-04-21 20:11 | XMS_ITS | Encounter Summary ---
Author Organization [facility] Address [address] [place] [address] Care Team Providers Care Customer Service Assistant Name Role Phone Cuba Solano MD Primary Care Provider +1 [phone] Encounter Details Date Type Department Care Team (Latest Contact Info) Description 03/14/2004 Outpatient Historical [facility] [address] [place] [address] Kvng Kilpatrick MD NO ADDRESS ON FILE HYPERSOMNI W SLEEP APNEA (Primary Dx) Social History Tobacco Use Types Packs/Day Years Used Date Smoking Tobacco: Never Assessed Sex and Gender Information Value Date Recorded Sex Assigned at Not on file Legal 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
--- OUTSIDE RECORDS SUMMARY | 2025-04-21 20:11 | XMS_ITS | Encounter Summary ---
Author Organization [facility] Address [address] [place] [address] Care Team Providers Care Bag Grader Name Role Phone Cuba Solano MD Primary Care Provider +1 [phone] Encounter Details Date Type Department Care Team (Latest Contact Info) Description 06/06/2003 Outpatient Historical [facility] [place] [address] [address] Keyona Mccloud, LUCIEN NO ADDRESS ON FILE ACUTE PHARYNGITIS (Primary Dx); ACUTE SINUSITIS NOS Social History Tobacco Use Types Packs/Day Years Used Date Smoking Tobacco: Never Assessed Sex and Gender Information Value Date Recorded Sex Assigned at Not on file Legal Sex Male 2:49 AM GROUP DIRECTOR Gender Identity Not on file Sexual Orientation Not on file documented as of this encounter Plan of Treatment Not on file documented as of this encounter Visit Diagnoses Diagnosis Acute pharyngitis- Primary Acute sinusitis, unspecified documented in this encounter Care Teams Bag Grader Relationship Specialty Start Date End Date Cuba Solano MD PCP - General 07/11/09 documented as of this encounter
--- OUTSIDE RECORDS SUMMARY | 2025-04-21 20:11 | XMS_ITS | Encounter Summary ---
Author Organization [facility] Address [address] [place] [address] Care Team Providers Care Wood Calker Name Role Phone Cuba Solano MD Primary Care Provider +1 [phone] Encounter Details Date Type Department Care Team (Latest Contact Info) Description 11/18/2001 Outpatient Historical [facility] Family Medicine [place] [address] [address] Donte Borrego MD NO ADDRESS ON FILE CONJUNCTIVITIS NOS (Primary Dx) Social History Tobacco Use Types Packs/Day Years Used Date Smoking Tobacco: Never Assessed Sex and Gender Information Value Date Recorded Sex Assigned at Not on file 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
--- OUTSIDE RECORDS SUMMARY | 2025-04-21 20:11 | XMS_ITS | Encounter Summary ---
Author Organization [facility] Address [address] [place] [address] Care Team Providers Care Campaign Specialist Name Role Phone Cuba Solano MD Primary Care Provider +1 [phone] Encounter Details Date Type Department Care Team (Latest Contact Info) Description 03/05/2003 Outpatient Historical [facility] Family Medicine [place] [id number] [address] [address] Keyona Mccloud, LUCIEN NO ADDRESS ON FILE OTHER MALAISE AND FATIGUE (Primary Dx) Social History Tobacco Use Types Packs/Day Years Used Date Smoking Tobacco: Never Assessed Sex and Gender Information Value Date Recorded Sex Assigned at Not on file Legal Sex Male 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
--- OUTSIDE RECORDS SUMMARY | 2025-04-21 20:11 | XMS_ITS | Encounter Summary ---
Author Organization [facility] Address [address] [place] [address] Care Team Providers Care Mechanical Drafter Name Role Phone Cuba Solano MD Primary Care Provider +1 [phone] Encounter Details Date Type Department Care Team (Late st Contact Info) Description 07/07/1999 Outpatient Historical [facility] Family Medicine [place] [id number] [address] Social History Tobacco Use Types Packs/Day Years Used Date Smoking Tobacco: Never Assessed Sex and Gender Information Value Date Recorded Sex Assigned at Not on file Legal Sex Male 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
--- OUTSIDE RECORDS SUMMARY | 2025-04-21 20:11 | XMS_ITS | Encounter Summary ---
Author Organization [facility] Address [address] [place] [address] Care Team Providers Care Line Builder Name Role Phone Cuba Solano MD Primary Care Provider +1 [phone] Encounter Details Date Type Department Care Team (Latest Contact Info) Description 02/15/2004 Outpatient Historical [facility] Family Medicine [place] [address] [address] Keyona Mccloud, LUCIEN NO ADDRESS ON FILE Vaccine for influenza (Primary Dx); ABN BLOOD CHEMISTRY NEC; URINARY FREQUENCY Social History Tobacco Use Types Packs/Day Years Used Date Smoking Tobacco: Never Assessed Sex and Gender Information Value Date Recorded Sex Assigned at Not on file Legal 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
--- OUTSIDE RECORDS SUMMARY | 2025-04-21 20:11 | XMS_ITS | Encounter Summary ---
Author Organization [facility] Address [address] [place] [address] Care Team Providers Care Gel Coat Sprayer Name Role Phone Cuba Solano MD Primary Care Provider +1 -[phone] Encounter Details Date Type Department Care Team (Latest Contact Info) Description 07/02/2003 Outpatient Historical [facility] Family Medicine [place] [id number] [address] Keyona Mccloud, TECHNOLOGY DEVELOPMENT INTERN NO ADDRESS ON FILE ALLERGY, UNSPECIFIED (Primary Dx) Social History Tobacco Use Types Packs/Day Years Used Date Smoking Tobacco: Never Assessed Sex and Gender Information Value Date Recorded Sex Assigned at Not on file Legal Sex Male 2: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
--- OUTSIDE RECORDS SUMMARY | 2025-04-21 20:11 | XMS_ITS | Encounter Summary ---
Author Organization [facility] Address [address] [place] [address] Care Team Providers Care Body Straightener Name Role Phone Cuba Solano MD Primary Care Provider +1 [phone] Encounter Details Date Type Department Care Team (Latest Contact Info) Description 09/10/1999 Outpatient Historical [facility] Moi George MD [address] [place] [address] Esophageal reflux (Primary Dx); Diaphragmatic hernia Social History Tobacco Use Types Packs/Day Years Used Date Smoking Tobacco: Never Assessed Sex and Gender Information Value Date Recorded Sex Assigned at Not on file Legal Sex Male 2: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
--- OUTSIDE RECORDS SUMMARY | 2025-04-21 20:11 | XMS_ITS | Encounter Summary ---
Author Organization [facility] Address [address] [place] [address] Care Team Providers Care Industrial Yard Brake Coupler Name Role Phone Cuba Solano MD Primary Care Provider +1 [phone] Encounter Details Date Type Department Care Team (Latest Contact Info) Description 12/04/2003 Outpatient Historical [facility] Family Medicine [place] [address] [address] Donte Borrego MD NO ADDRESS ON FILE URIN TRACT INFECTION NOS (Primary Dx); ANEMIA NOS; UNSPEC CONSTIPATION Social History Tobacco Use Types Packs/Day Years Used Date Smoking Tobacco: Never Assessed Sex and Gender Information Value Date Recorded Sex Assigned at Not on file Legal Sex Male 2:49 AM VP HOME HEALTH Gender Identity Not on file Sexual Orientation Not on file documented as of this encounter Plan of Treatment Not on file documented as of this encounter Visit Diagnoses Diagnosis Urinary tract infection, site not specified- Primary Anemia, unspecified Unspecified constipation documented in this encounter Care Teams Industrial Yard Brake Coupler Relationship Specialty Start Date End Date Cuba Solano MD PCP - General 07/11/09 documented as of this encounter
--- OUTSIDE RECORDS SUMMARY | 2025-04-21 20:11 | XMS_ITS | Encounter Summary ---
Author Organization [facility] Address [address] [place] [address] Care Team Providers Care Body And Fender Worker Name Role Phone Cuba Solano MD Primary Care Provider +1 -[phone] Encounter Details Date Type Department Care Team (Latest Contact Info) Description 07/11/1999 Outpatient Historical [facility] Family Medicine [place] [address] [address] Donte Borrego MD NO ADDRESS ON FILE Unspecified essential hypertension (Primary Dx); Other convulsions; Allergy, unspecified not elsewhere classified Social History Tobacco Use Types Packs/Day Years Used Date Smoking Tobacco: Never Assessed Sex and Gender Information Value Date Recorded Sex Assigned at Not on file Legal Sex Male 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
--- OUTSIDE RECORDS SUMMARY | 2025-04-21 20:11 | XMS_ITS | Encounter Summary ---
Author Organization [facility] Address [address] [place] [address] Care Team Providers Care Metal Model Builder Name Role Phone Cuba Solano MD Primary Care Provider +1 [phone] Encounter Details Date Type Department Care Team (Latest Contact Info) Description 10/23/2003 Outpatient Historical [facility] Family Medicine [place] [address] [address] Donte Borrego MD NO ADDRESS ON FILE TOBACCO USE DISORDER (Primary Dx); ALLERGY, UNSPECIFIED Social History Tobacco Use Types Packs/Day Years Used Date Smoking Tobacco: Never Assessed Sex and Gender Information Value Date Recorded Sex Assigned at Not on file Legal Sex Male 2:49 AM NURSING 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
--- OUTSIDE RECORDS SUMMARY | 2025-04-21 20:11 | XMS_ITS | Encounter Summary ---
Author Organization [facility] Address [address] [place] [address] Care Team Providers Care Swing Type Lathe Operator Name Role Phone Cuba Solano MD Primary Care Provider +1 -[phone] Encounter Details Date Type Department Care Team (Latest Contact Info) Description 05/17/2003 Outpatient Historical [facility] Family Medicine [place] [id number] [address] Keyona Mccloud, LUCIEN NO ADDRESS ON FILE HYPERLIPIDEMIA NEC/NOS (Primary Dx); VITAMIN B DEFICIENCY NOS; AFTERCARE DIRECTOR AMBULATORY USE MEDICATN Social History Tobacco Use Types Packs/Day Years Used Date Smoking Tobacco: Never Assessed Sex and Gender Information Value Date Recorded Sex Assigned at Not on file Legal Sex Male 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
--- OUTSIDE RECORDS SUMMARY | 2025-04-21 20:11 | XMS_ITS | Encounter Summary ---
Author Organization [facility] Address [address] [place] [address] Care Team Providers Care Robotic Weld Technician Name Role Phone Cuba Solano MD Primary Care Provider +1 -[phone] Encounter Details Date Type Department Care Team (Latest Contact Info) Description 02/01/2003 Outpatient Historical [facility] Family Medicine [place] [facility] [address] [address] Huey Upton Jr., MD [address] [place] [address] 248 [facility] [address] [place] [address] Benign hypertension (Primary Dx); ALLERGY, UNSPECIFIED Social History Tobacco Use Types Packs/Day Years Used Date Smoking Tobacco: Never Assessed Sex and Gender Information Value Date Recorded Sex Assigned at Not on file Legal Sex Male 2:49 AM RECHECKER Gender Identity Not on file Sexual Orientation Not on file documented as of this encounter Plan of Treatment Not on file documented as of this encounter Visit Diagnoses Diagnosis Benign hypertension- Primary Essential hypertension, benign Allergy, unspecified not elsewhere classified documented in this encounter Care Teams Robotic Weld Technician Relationship Specialty Start Date End Date Cuba Solano MD PCP - General 07/11/09 documented as of this encounter
--- OUTSIDE RECORDS SUMMARY | 2025-04-21 20:11 | XMS_ITS | Encounter Summary ---
Author Organization [facility] Address [address] [place] [address] Care Team Providers Care Automatic Door Mechanic Name Role Phone Cuba Solano MD Primary Care Provider +1 -[phone] Encounter Details Date Type Department Care Team (Latest Contact Info) Description 10/02/2002 Outpatient Historical [facility] Family Medicine [place] [address] [address] Donte Borrego MD NO ADDRESS ON FILE ANEMIA NOS (Primary Dx) Social History Tobacco Use Types Packs/Day Years Used Date Smoking Tobacco: Never Assessed Sex and Gender Information Value Date Recorded Sex Assigned at Not on file Legal Sex Male 2:49 AM ANIMAL CARE SUPERVISOR Gender Identity Not on file Sexual Orientation Not on file documented as of this encounter Plan of Treatment Not on file documented as of this encounter Visit Diagnoses Diagnosis Anemia, unspecified- Primary documented in this encounter Care Teams Automatic Door Mechanic Relationship Specialty Start Date End Date Cuba Solano MD PCP - General 07/11/09 documented as of this encounter
--- OUTSIDE RECORDS SUMMARY | 2025-04-21 20:11 | XMS_ITS | Encounter Summary ---
Author Organization [facility] Address [address] [place] [address] Care Team Providers Care Qi Specialist Name Role Phone Cuba Solano MD Primary Care Provider +1 -[phone] Encounter Details Date Type Department Care Team (Latest Contact Info) Description 09/14/2001 Outpatient Historical [facility] Family Medicine [place] [address] [address] Donte Borrego MD NO ADDRESS ON FILE UNSPECIFIED VIRAL INFECTION (Primary Dx); ALLERGY, UNSPECIFIED; HYPERTENSION NOS; TACHYCARDIA NOS Social History Tobacco Use Types Packs/Day Years Used Date Smoking Tobacco: Never Assessed Sex and Gender Information Value Date Recorded Sex Assigned at Not on file Legal Sex Male 2:49 AM DIRECTOR SURFACE TRANSPORTATION Gender Identity Not on file Sexual Orientation Not on file documented as of this encounter Plan of Treatment Not on file documented as of this encounter Visit Diagnoses Diagnosis Unspecified viral infection, in conditions classified elsewhere and of unspecified site- Primary Allergy, unspecified not elsewhere classified Unspecified essential hypertension Tachycardia, unspecified documented in this encounter Care Teams Qi Specialist Relationship Specialty Start Date End Date Cuba Solano MD PCP - General 07/11/09 documented as of this encounter
--- OUTSIDE RECORDS SUMMARY | 2025-04-21 20:11 | XMS_ITS | Encounter Summary ---
Author Organization [facility] Address [address] [place] [address] Care Team Providers Care Food Clerk Name Role Phone Cuba Solano MD Primary Care Provider +1 -[phone] Encounter Details Date Type Department Care Team (Latest Contact Info) Description 05/30/2002 Outpatient Historical [facility] Family Medicine [place] [address] [address] Donte Borrego MD NO ADDRESS ON FILE ANEMIA NOS (Primary Dx) Social History Tobacco Use Types Packs/Day Years Used Date Smoking Tobacco: Never Assessed Sex and Gender Information Value Date Recorded Sex Assigned at Not on file 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
--- OUTSIDE RECORDS SUMMARY | 2025-04-21 20:12 | XMS_ITS | Patient Health Record ---
Author Organization [facility] Address [address] [facility] [place] [address] Care Team Providers Care Environmental Technical Officer Name Role Phone EDI SAMUELS Unavailable [phone] Kain Marroquin Unavailable [phone] Allergies Allergen (clinical drug ingredient) Drug/Non Drug [...] Notes/Report: Glucometer WBG 128 65-110 MG/DL Asymptomatic~Meter: [id number]~Advertiser: [id number] EDI RATLIFF Testing performed at: [address] [place] [address] CLIA ID [id number] Glucometer WBG Reviewed date:01/03/2025 04:50:43 PM Interpretation: Performing Lab: Notes/Report: Glucometer WBG 118 65-110 MG/DL Asymptomatic~Meter: [id number]~Advertiser: [id number] MARY ROMANFER Testing performed at: [address] [place] [address] CLIA ID [id number] CBC w/ Auto Diff Reviewed date:01/02/2025 11:41:10 AM Interpretation: Performing Lab: Notes/Report: Diagnosis Description: Encounter for other preprocedural examination Testing performed at: [address] [place] [address] CLIA ID [id number] Diagnosis Description: Age-related physical debility Diagnosis Description: [...] 40.0-70.0 % Lymph Auto% 12.0 22.0-44.0 % [place] Auto% 13.3 3.0-7.0 % Eos Auto% 4.6 2.0-4.0 % Baso Auto% 0.5 0.0-1.0 % Imm Gran% .7 .0-.4 % Neutro Abs 3.00 .80-7.70 Absolute Neutrophil Count 3000 Lymph Abs .52 .10-4.10 [place] Abs .58 .20-1.00 Eos Abs .20 .00-.40 [...] W/U Status Risk Notes Problem Essential hypertension (24210083) Essential (primary) hypertension (I10) Active confirmed Problem Type II diabetes mellitus without complication (835898058) Type 2 diabetes mellitus without complication, unspecified whether senior living insulin use (E11.9) Active confirmed Problem Heart failure (07703315) Chronic congestive heart failure, unspecified heart failure type (I50.9) Active confirmed Problem COPD - Chronic obstructive pulmonary disease (19916730) Chronic obstructive pulmonary disease, unspecified COPD type (J44.9) Active confirmed Problem Postprocedural states (599654237) H/O transurethral destruction of bladder lesion (Z98.890) Active confirmed Problem Urgent desire to urinate (52850618) Urinary urgency (R39.15) Active confirmed Problem Advanced age (80656836) Advanced age (R54) Active confirmed Problem Urinary frequency (973391247) Urinary frequency (R35.0) Active confirmed Vital Signs [...] [address] [facility] [place] [address] 01/03/2025 DEI SAMUELS [facility] [address] [facility] [place] [address] 11/21/2024 Kain Marroquin Urinary frequency R3 5.0 ; Urinary urgency R39.15 and Weak urinary stream R39.12 [facility] [address] [facility] [place] [address] 12/27/2024 Kain Marroquin Pre-op testing Z01.8 18 ; Urinary frequency R35.0 ; Urinary urgency R39.15 and Weak urinary stream R39.12 [facility] [address] [facility] [place] [address] 01/22/2025 [facility] Urinary frequency R3 5.0 ; H/O transurethral destruction of bladder lesion Z98.890 ; Urinary urgency R39.15 and Weak urinary stream R39.12 [facility] [address] [facility] [place] [address] 11/02/2024 Kain Pearashil [facility] [address] [facility] [place] [address] 11/22/2024 Kain Pevril [facility] [address] [facility] [address] [facility] [place] [address] 12/25/2024 Kain Pevril [facility] [address] [facility] [place] [address] 12/26/2024 [facility] Pre-op testing Z01.8 18 ; Advanced age R54 ; Pre-procedure lab exam Z01.812 ; Preop cardiovascular exam Z01.810 ; Essential (primary) hypertension I10 ; Type 2 diabetes mellitus without complication, unspecified whether senior living insulin use E11.9 ; Chronic congestive heart failure, unspecified heart failure type I50.9 and Chronic obstructive pulmonary disease, unspecified COPD type J44.9 DO NOT USE THIS FACILITY [facility] [address] [facility] [address] [place], [place] [id number] 01/17/2025 [facility] Assessments Encounter Date Diagnosis (ICD Code) Assessment [...] in need of presurgical labs, however, the transit mixer driver is unable to take patient to [...] in need of presurgical labs, however, the transit mixer driver is unable to take patient to [...] at our clinic. 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 Continue flomax BID at this time. For now, and at this time, I am unable to assess if he is in retention or not. He is requesting pereira be placed and I am unable to even attempt this here at our clinic. I recommended that his ID facility can try, but if unsuccessful, they [...] at our clinic. I recommended that his ID facility can try, but if unsuccessful, they [...] in need of presurgical labs, however, the transit mixer driver is unable to take patient to [...] in need of presurgical labs, however, the transit mixer driver is unable to take patient to [...] 2 diabetes mellitus without complication, unspecified whether rat exterminator insulin use (ICD-10 - E11.9) 12/26/2024 Chronic congestive heart failure, unspecified heart failure type (ICD-10 - I50.9) 12/26/2024 Chronic obstructive pulmonary disease, unspecified COPD type (ICD-10 - J44.9) 01/22/2025 Other # Urinary Retention/Frequen cy Order placed for indwelling Pereira catheter (18 Sudanese) to be inserted at half-way. Catheter to be changed monthly. Discussed benefits of chronic catheter use for quality of life improvement versus risks of UTI and potential urethral erosion, especially given patient's hypospadias. Will coordinate with half-way staff regarding catheter management. # Bladder Biopsy Follow-up Pathology results reviewed with patient - benign findings showing inflammation without malignancy. No further follow-up needed for this specific issue. # Fluid Retention/Hepatos plenomegaly Discussed coordination of care with primary team regarding planned paracentesis and liver/spleen biopsy. Suggested possibility of catheter placement during hospitalization if half-way unable to place. # Follow-up Return to [...] the bathroom quickly or having accidents. The half-way staff will place the catheter. They will [...] quality of life are significant. If the half-way has trouble placing the catheter, we may [...] Basic Metabolic Panel 12/26/2024 Electrocardiogram, 12 Lead Tracing-70248 12/26/2024 Chest PA/Lat--70149 12/26/2024 Next Appt Details Provider Name:Kain Marroquin, 06/25/2025 02:00:00 PM, [address] [place], [address], Insurance Providers Payer Name Payer Address Payer Phone Subscriber Number Group Number Insured Name Patient Relationship to Insured Coverage Start Date Coverage End Date [place] [address] [address] [place], [place] [id number] GavinMarciano Self - patient is the insured [place] Medicaid [address] [place], [place] [id number] McdermottMarciano bolden Self - patient is the insured Medical (General) History Medical History History ICD Code COPD Sleep apnea Hypertension CHF Type 2 Diabetes GERD glaucoma Surgical History Surgery Date(Month/Year) left leg 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
--- OUTSIDE RECORDS SUMMARY | 2025-04-21 20:12 | XMS_ITS | Encounter Summary ---
Author Organization [facility] Address [address] [place] [address] Care Team Providers Care Social Scientist Name Role Phone Cuba Solano MD Primary Care Provider [phone] [phone] Encounter Details Date Type Department Care Team (Latest Contact Info) Description 06/17/1998 Outpatient Historical [facility] Family Medicine [place] [id number] [address] Donte Borrego MD NO ADDRESS ON FILE Other abnormal clinical finding (Primary Dx) Social History Tobacco Use Types Packs/Day Years Used Date Smoking Tobacco: Never Assessed Sex and Gender Information Value Date Recorded Sex Assigned at Not on file 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
--- OUTSIDE RECORDS SUMMARY | 2025-04-21 20:12 | XMS_ITS | Continuity of Care Document ---
Author Organization [facility] Aravind Barboza [facility]) Address [address] [place] [address] Assessment No assessment recorded. Plan of Treatment [...] By Organization Details Last Modified Time 03/22/2025 [id number] Admitted with sepsis and volume overload. Evaluated by hematology and not able to use steroids with volume issues. He is planning to go to [place] to hear options for for granulomatous disease affecting his liver. Sleep study soon. [email or web address] Not available 03/25/2025 15:23:44 Reason for Referral None Reported. Problems Name Problem SNOMED Code Status Onset Date Resolution Date Notes Provider Name and Address Organization Details Recorded Time Essential hypertens ion 04622113 Active 2007 ESSENTIAL HYPERTENS ION; 8 2:16PM by Karla Joseph LPN, Office Visit; Promoted; acuity set as *; Not Available [facility] 3 03:17:47 Allergic rhinitis 79952731 Active 2007 ALLERGIC RHINITIS; 8 2:16PM by Karla Joseph LPN, Office Visit; Promoted; acuity set as *; Not Available [facility] 3 03:17:47 Persisten t insomnia 198741165 Active 2007 PERSISTEN T INSOMNIA; 8 2:16PM by Karla Joseph LPN, Office Visit; Promoted; acuity set as *; Not Available [facility] 3 03:17:52 Fracture of ankle 23133906 Active 2007 Ankle Fracture; 8 2:16PM by Karla Joseph LPN, Office Visit; Promoted; acuity set as *; Not Available [facility] 3 03:17:53 Peptic ulcer 03972059 Active 2007 PEPTIC ULCER; 8 2:16PM by Karla Joseph LPN, Office Visit; Promoted; acuity set as *; Not Available [facility] 3 03:17:53 Type 1 diabetes mellitus 73303213 Active 2007 DIABETES MELLITUS TYPE I; 8 2:16PM by Karla Joseph LPN, Office Visit; Promoted; acuity set as *; Not Available [facility] 3 03:17:58 Constipat ion 00102598 Active 2007 CONSTIPAT ION; 8 2:16PM by Karla Joseph LPN, Office Visit; Promoted; acuity set as *; Not Available [facility] 3 03:17:58 Amputated above knee 926850483 Active 2007 ABOVE KNEE AMPUTATIO N STATUS; 8 2:16PM by Karla Joseph LPN, Office Visit; Promoted; acuity set as *; Not Available [facility] 3 03:17:59 History of depressio n 016342425 Active 2007 DEPRESSIO N, NOS; 8 2:16PM by Karla Joseph LPN, Office Visit; Promoted; acuity set as *; Not Available [facility] 3 03:18:00 Hyperglyc emia due to type 2 diabetes mellitus 05346312724 9109 Active 2023 NATHANAEL atvarez [facility] 4 13:09:52 Chronic back pain greater than three months duration 22872483544 2 Active 2023 NATHANAEL tavarez [facility] 4 15:23:19 Blepharit is of right eyelid 21583122989 9103 Active 2024 NATHANAEL VICTORIA [facility] 5 15:11:18 Congestiv e heart failure 36539515 Active 2024 NATHANAEL VICTORIA [facility] 5 16:21:48 Acute right otitis media 758741383 Active 2024 [facility] 16:28:04 Pain of right shoulder joint 46066908737 689447 Active 2024 [facility] 17:59:42 Hepatospl enomegaly 94715544 Active 2024 NATHANAEL VICTORIA [facility] 14:35:12 Thrombocy topenic disorder 665888357 Active 2024 NATHANAEL VICTORIA [facility] 14:35:13 Bilateral lower limb edema 513351125 Active 2024 MARLON HADOMENIC [facility] 5 15:35:25 Acute urinary tract infection 050459965 Active 2024 NATHANAEL VICTORIA [facility] 14:32:57 Sarcoidos is 52454252 Active 2024 NATHANAEL VICTORIA [facility] 14:33:01 Problem Notes None recorded. Medical Equipment None Reported. Allergies Allergen ID Allergen Name Allergen Category Reaction Reaction Severity Criticality Documentation Date Start Date Code Code System Note Provider Name and Address Organization Details Recorded Time 06886 Product containin g penicilli n (product) medicatio n Not available Not available Not available 11/28/2022 32062 8001 SNOMED Comme nt: Recor ded 09/01 2:16P M by Briseida Joseph LPN, Offic e Visit ; Domingo rubio; Shruthi wade ce: *; ; Not Available [facility] 3 02:25:17 66302 Substance with sulfonami de structure and antibacte rial mechanism of action (substanc e) medicatio n Not available Not available Not available 03/22/2025 25839 8003 SNOMED Not Available david - External Data Service - prod 5 06:48:45 54643 sulfameth oxazole / trimethop rim medicatio n rash Not available [facility] 03/22/20252007 95050 RxNorm Not Available david stiQRd External Data [employer] - prod 5 06:50:41 [...] Address Organization Details Last Updated DateTime 5 325810. 01 g 76 /min 15 /min 98.1 [degF] 98 % 102/58 mm[Hg] NATHANAEL VICTORIA [facility] 5 14:29:59 Social History None recorded. Functional Status None recorded. Mental Status None recorded. Family History Nothing Reported. Medical History No medical history recorded. Immunizations Vaccine Type Date Status Note Provider Nam e and Address Organization Details Recorded Time influenza, unspecified formulation 8 completed Not Available [facility] 04/17/2025 09:08:23 Influenza, split virus, trivalent, preservative 0 completed Not Available [facility] 04/17/2025 09:08:23 COVID-19, mRNA, LNP-S, PF, 100 mcg/0.5mL dose or 50 mcg/0.25mL dose 1 completed Not Available [facility] 04/17/2025 09:08:23 COVID-19, mRNA, LNP-S, PF, 100 mcg/0.5mL dose or 50 mcg/0.25mL dose 1 completed Not Available [facility] 04/17/2025 09:08:23 Influenza, split virus, quadrivalent, PF 1 completed Not Available [facility] 04/17/2025 09:08:23 COVID-19, mRNA, LNP-S, PF, 100 mcg/0.5mL dose or 50 mcg/0.25mL dose 1 completed Not Available [facility] 04/17/2025 09:08:23 Influenza, split virus, quadrivalent, PF 2 completed Not Available [facility] 04/17/2025 09:08:23 Influenza, split virus, quadrivalent, PF 3 completed Not Available [facility] 04/17/2025 09:08:23 Influenza, split virus, trivalent, preservative 4 completed Not Available [facility] 04/17/2025 09:08:23 COVID-19, mRNA, LNP-S, PF, 50 mcg/0.5 mL 5 completed Not Available [facility] 04/17/2025 09:08:23 Past Encounters Encounter ID Performer Location Encounter Start Date Encounter Closed Date Diagnosis/Indication Diagnosis SNOMED-CT Code Diagnosis ICD10 Code Diagnosis IMO Codes Diagnosis Note [id number] SUSU FOUNTAIN PA-C [facility] ([facility]) [address] [place] [address] 02/21/2025 13:40:55 03/20/2025 07:29:37 Bilateral lower limb edema 237006779 R60.0 [id number] SPIRONALAC TONE 50MG QDBUMEX 3MG PO BID, ON LINZOLID for skin cellulitis .monitor BMP for cr and electrolyt es. [id number] Chris Parker DO [facility] ([facility]) [address] [place] [address] 02/26/2025 14:48:04 02/28/2025 08:09:20 Type 1 diabetes mellitus 73800777 E10.9 Congestive heart failure 83836341 I50.9 Essential hypertension 33747652 I10 Cirrhosis of liver 33507 007 K74.69 6164926 Chronic constipation 236 066644 K59.09 [id number] Chris Parker DO [facility] ([facility]) [address] [place] [address] 03/22/2025 09:18:02 03/26/2025 11:28:18 Post-discharge follow-up 643436279 Z09 083036 Acute urin constance tract infection 067493522 N39.0 496710 Essential hypertension 05659204 I10 Congestive heart failure 27768450 I50.9 Hyperglyce jaleel due to type 2 diabetes mellitus 0963143141 70409 E11.65 Z79.4 Sarcoidosis 97928997 D86 .9 19020 Health Concerns Section Related Observation LastModified by Organization Detai ls LastModified Time None Recorded Concern Status LastModified by Organization Details LastModified Time None Recorded Payers Encounter Date Sequence Insurance Name Policy Number Policy Pate Covered Member ID Pate Member ID Guarantor Name 03/22/2025 1 [place] Marciano Alonso [id number] Marciano Alonso 03/22/2025 2 [place] Marciano Alonso [id number] Marciano Alonso Notes Date Note Type Note Provider Name and Address Organization Details Recorded Time 03/22/2025 text/html COPDReported by PatientHPI:For associated symptoms, patient reportsobesity. For onset/timing, patient reportsmultiple times per day. For duration, patient reportshas noted for years.ROS as noted in the [facility] ER follow up after hallucinatoins. Chris Parker DO [address] [place] [address], [address], [facility] 03/25/2025 15:23:56
--- OUTSIDE RECORDS SUMMARY | 2025-04-21 20:12 | XMS_ITS | Encounter Summary ---
Author Organization [facility] Address [address] [place] [address] Care Team Providers Care Vp Product Management Name Role Phone Cuba Solano MD Primary Care Provider [phone] Encounter Details Date Type Department Care Team (Latest Contact Info) Description 04/04/[address] 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
--- OUTSIDE RECORDS SUMMARY | 2025-04-21 20:12 | XMS_ITS | Encounter Summary ---
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
--- OUTSIDE RECORDS SUMMARY | 2025-04-21 20:12 | XMS_ITS | Encounter Summary ---
Author Organization [facility] Address [address] [place] [address] Care Team Providers Care Insecticide Sprayer Name Role Phone Cuba Solano MD Primary Care Provider [phone] Encounter Details Date Type Department Care Team (Latest Contact Info) Description 12/03/1998 Outpatient Historical [facility] Family Medicine [place] [id number] [address] Donte Borrego MD NO ADDRESS ON FILE Other and unspecified hyperlipidemia (Primary Dx); Acute conjunctivitis, unspecified; Unspecified essential hypertension; Allergy, unspecified not elsewhere classified Social History Tobacco Use Types Packs/Day Years Used Date Smoking Tobacco: Never Assessed Sex and Gender Information Value Date Recorded Sex Assigned at Not on file 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
--- OUTSIDE RECORDS SUMMARY | 2025-04-21 20:12 | XMS_ITS | Encounter Summary ---
Author Organization [facility] Address [address] [place] [address] Phone Care Team Providers Care Supervisor Pumping Name Role Phone Loren Canada MD Primary Care Provider [phone] Encounter Details Date Type Department Care Team (Late st Contact Info) Description 09/22/2022 [facility] [address] [facility] [address] [place] [address] Chronic kidney disease stage 3B [...] (HCC) documented in this encounter Care Teams Supervisor Pumping Relationship Specialty Start Date End Date Loren Canada MD [address] [place], [place] [address] PCP - General Family Medicine 09/22/22 documented as of this encounter
--- OUTSIDE RECORDS SUMMARY | 2025-04-21 20:12 | XMS_ITS | Encounter Summary ---
Author Organization [employer] [facility] Address [address] [place] [address] Care Team Providers Care Braided Band Assembler Name Role Phone Cuba Solano MD Primary Care Provider [phone] Encounter Details Date Type Department Care Team (Latest Contact Info) Description 01/15/1998 Outpatient Historical [facility] Moi George MD [address] [place] [address] Blood in stool (Primary Dx); Nonspecific abnormal results of liver function study Social History Tobacco Use Types Packs/Day Years Used Date Smoking Tobacco: Never Assessed Sex and Gender Information Value Date Recorded Sex Assigned at Not on file 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
--- OUTSIDE RECORDS SUMMARY | 2025-04-21 20:12 | XMS_ITS | Encounter Summary ---
Author Organization [facility] Address [address] [place] [address] Care Team Providers Care Hardwood Floor Layer Name Role Phone Cuba Solano MD Primary Care Provider +1 [phone] Encounter Details Date Type Department Care Team (Latest Contact Info) Description 01/29/1998 Outpatient Historical [facility] Family Medicine [place] [address] [address] Donte Borrego MD NO ADDRESS ON FILE Unspecified suppurative otitis media (Primary Dx) Social History Tobacco Use Types Packs/Day Years Used Date Smoking Tobacco: Never Assessed Sex and Gender Information Value Date Recorded Sex Assigned at Not on file 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
--- OUTSIDE RECORDS SUMMARY | 2025-04-21 20:12 | XMS_ITS | Encounter Summary ---
Author Organization [facility] Address [address] [place] [address] Care Team Providers Care Mdm Developer Name Role Phone Cuba Solano MD Primary Care Provider +1 [phone] Encounter Details Date Type Department Care Team (Latest Contact Info) Description 04/08/1998 Outpatient Historical [facility] Family Medicine [place] [address] [address] Donte Borrego MD NO ADDRESS ON FILE Generalized osteoarthrosis, unspecified site (Primary Dx); Nonspecific elevation of levels of transaminase or lactic acid dehydrogenase (LDH); Need vaccination-viral disease Social History Tobacco Use Types Packs/Day Years Used Date Smoking Tobacco: Never Assessed Sex and Gender Information Value Date Recorded Sex Assigned at Not on file 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
--- OUTSIDE RECORDS SUMMARY | 2025-04-21 20:12 | XMS_ITS | Encounter Summary ---
Author Organization [facility] Address [address] [place] [address] Care Team Providers Care Bridal Consultant Name Role Phone Cuba Solano MD Primary Care Provider +1 [phone] Encounter Details Date Type Department Care Team (Latest Contact Info) Description 07/08/1998 Outpatient Historical [facility] Family Medicine [place] [address] [address] Donte Borrego MD NO ADDRESS ON FILE Acute infection of pinna (Primary Dx); Acute perichondritis pinna; Malaise and fatigue; Other specified disorders of liver Social History Tobacco Use Types Packs/Day Years Used Date Smoking Tobacco: Never Assessed Sex and Gender Information Value Date Recorded Sex Assigned at Not on file 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
--- OUTSIDE RECORDS SUMMARY | 2025-04-21 20:12 | XMS_ITS | Encounter Summary ---
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
--- OUTSIDE RECORDS SUMMARY | 2025-04-21 20:12 | XMS_ITS | Encounter Summary ---
Author Organization [facility] Address [address] [place] [address] Care Team Providers Care Floor Plan Adjuster Name Role Phone Cuba Solano MD Primary Care Provider +1 [phone] Encounter Details Date Type Department Care Team (Latest Contact Info) Description 04/10/1999 Outpatient Historical [facility] Family Medicine [place] [id number] [address] Donte Borrego MD NO ADDRESS ON FILE Unspecified essential hypertension (Primary Dx) Social History Tobacco Use Types Packs/Day Years Used Date Smoking Tobacco: Never Assessed Sex and Gender Information Value Date Recorded Sex Assigned at Not on file 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
--- OUTSIDE RECORDS SUMMARY | 2025-04-21 20:12 | XMS_ITS | Encounter Summary ---
Author Organization [facility] Address [address] [place] [address] Care Team Providers Care Radiographer Name Role Phone Cuba Solano MD Primary Care Provider [phone] [phone] Encounter Details Date Type Department Care Team (Latest Contact Info) Description 02/19/1998 Outpatient Historical [facility] [place] [address] [place] [address] Other convulsions (Primary Dx) Social History Tobacco Use Types Packs/Day Years Used Date Smoking Tobacco: Never Assessed Sex and Gender Information Value Date Recorded Sex Assigned at Not on file 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
--- OUTSIDE RECORDS SUMMARY | 2025-04-21 20:12 | XMS_ITS | Encounter Summary ---
Author Organization [email or web address] [facility] Address [address] [place] [address] Care Team Providers Care Enrollment Management Director Name Role Phone Cuba Solano MD Primary Care Provider [phone] [phone] Encounter Details Date Type Department Care Team (Latest Contact Info) Description 02/19/[address] 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
--- OUTSIDE RECORDS SUMMARY | 2025-04-21 20:12 | XMS_ITS | Encounter Summary ---
Author Organization [facility] Address [address] [place] [address] Care Team Providers Care Pipeline Technician Name Role Phone Cuba Solano MD Primary Care Provider +1 [phone] Encounter Details Date Type Department Care Team (Latest Contact Info) Description 08/13/1998 Outpatient Historical [facility] [place] [address] [place] [address] Other convulsions (Primary Dx) Social History Tobacco Use Types Packs/Day Years Used Date Smoking Tobacco: Never Assessed Sex and Gender Information Value Date Recorded Sex Assigned at Not on file 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
--- OUTSIDE RECORDS SUMMARY | 2025-04-21 20:12 | XMS_ITS | Encounter Summary ---
Author Organization [facility] Address [address] [place] [address] Care Team Providers Care Lace Stripper Name Role Phone Cuba Solano MD Primary Care Provider +1 [phone] Encounter Details Date Type Department Care Team (Latest Contact Info) Description 10/06/1999 Outpatient Historical [facility] Family Medicine [place] [id number] [address] Donte Borrego MD NO ADDRESS ON FILE Esophageal reflux (Primary Dx); Other and unspecified hyperlipidemia; Unspecified essential hypertension; Nonspecific abnormal results of liver function study Social History Tobacco Use Types Packs/Day Years Used Date Smoking Tobacco: Never Assessed Sex and Gender Information Value Date Recorded Sex Assigned at Not on file 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
--- OUTSIDE RECORDS SUMMARY | 2025-04-21 20:12 | XMS_ITS | Encounter Summary ---
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
--- OUTSIDE RECORDS SUMMARY | 2025-04-21 20:12 | XMS_ITS | Encounter Summary ---
Author Organization [facility] Address [address] [place] [address] Care Team Providers Care Event Management Consultant Name Role Phone Cuba Solano MD Primary Care Provider [phone] [phone] Encounter Details Date Type Department Care Team (Latest Contact Info) Description 03/05/1999 Outpatient Historical [facility] Family Medicine [place] [address] [address] Donte Borrego MD NO ADDRESS ON FILE Need vaccination-viral disease (Primary Dx); Encounter for long-term (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 of other medications Social History Tobacco Use Types Packs/Day Years Used Date Smoking Tobacco: Never Assessed Sex and Gender Information Value Date Recorded Sex Assigned at Not on file 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
--- OUTSIDE RECORDS SUMMARY | 2025-04-21 20:12 | XMS_ITS | Encounter Summary ---
Author Organization [facility] Address [address] [place] [address] Care Team Providers Care Recovery Coach Name Role Phone Cuba Solano MD Primary Care Provider [phone] [phone] Encounter Details Date Type Department Care Team (Latest Contact Info) Description 08/13/1998 Outpatient Historical [facility] Moi George MD [address] [place] [address] Abdominal pain, unspecified site (Primary Dx); Blood in stool; Esophageal reflux Social History Tobacco Use Types Packs/Day Years Used Date Smoking Tobacco: Never Assessed Sex and Gender Information Value Date Recorded Sex Assigned at Not on file 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
--- OUTSIDE RECORDS SUMMARY | 2025-04-21 20:12 | XMS_ITS | Encounter Summary ---
Author Organization [facility] Address [address] [place] [address] Care Team Providers Care Analytical Clerk Name Role Phone Cuba Solano MD Primary Care Provider +1 -[phone] Encounter Details Date Type Department Care Team (Latest Contact Info) Description 10/08/1998 Outpatient Historical [facility] Family Medicine [place] [id number] [address] Donte Borrego MD NO ADDRESS ON FILE Esophageal reflux (Primary Dx); Unspecified essential hypertension; Unspecified disorder of liver Social History Tobacco Use Types Packs/Day Years Used Date Smoking Tobacco: Never Assessed Sex and Gender Information Value Date Recorded Sex Assigned at Not on file 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
--- OUTSIDE RECORDS SUMMARY | 2025-04-21 20:13 | XMS_ITS | Continuity of Care Document ---
Author Organization [place] - Aravind Moncada [facility] Mikhail, Chas, [facility]) Address [address] [facility] [place] [address] Assessment No assessment recorded. Plan of Treatment [...] resul t No observ ation record ed. [email or web address] [facility] [address] [place], [address], 02/12/2025 11:57:54 Result Notes None recorded. Problems Name Problem SNOMED Code Status Onset Date Resolution Date Notes Provider Name and Address Organization Details Recorded Time Essential hypertens ion 96537429 Active 2007 ESSENTIAL HYPERTENS ION; 8 2:16PM by Karla Joseph LPN, Office Visit; Promoted; acuity set as *; Not Available [facility] 3 03:17:47 Allergic rhinitis 15197277 Active 2007 ALLERGIC RHINITIS; 8 2:16PM by Karla Joseph LPN, Office Visit; Promoted; acuity set as *; Not Available [facility] 3 03:17:47 Persisten t insomnia 509434048 Active 2007 PERSISTEN T INSOMNIA; 8 2:16PM by Karla Joseph LPN, Office Visit; Promoted; acuity set as *; [facility] Available [facility] 3 03:17:52 Fracture of ankle 61532484 Active 2007 Ankle Fracture; 8 2:16PM by Karla Joseph LPN, Office Visit; Promoted; acuity set as *; Not Available [facility] 3 03:17:53 Peptic ulcer 60441342 Active 2007 PEPTIC ULCER; 8 2:16PM by Karla Joseph LPN, Office Visit; Promoted; acuity set as *; Not Available [facility] 3 03:17:53 Type 1 diabetes mellitus 10229869 Active 2007 DIABETES MELLITUS TYPE I; 8 2:16PM by Karla Joseph LPN, Office Visit; Promoted; acuity set as *; Not Available [facility] 3 03:17:58 Constipat ion 19042706 Active 2007 CONSTIPAT ION; 8 2:16PM by Karla Joseph LPN, Office Visit; Promoted; acuity set as *; Not Available [facility] 3 03:17:58 Amputated above knee 552423908 Active 2007 ABOVE KNEE AMPUTATIO N STATUS; 8 2:16PM by Karla Joseph LPN, Office Visit; Promoted; acuity set as *; [facility] Available [facility] 3 03:17:59 History of depressio n 445883750 Active 2007 DEPRESSIO N, NOS; 8 2:16PM by Karla Joseph LPN, Office Visit; Promoted; acuity set as *; Not Available [facility] 3 03:18:00 Hyperglyc emia due to type 2 diabetes mellitus 73236179123 9109 Active 2023 NATHANAEL tavarez [facility] 4 13:09:52 Chronic back pain greater than three months duration 25145416059 2 Active 2023 NATHANAEL tavarez [facility] 4 15:23:19 Blepharit is of right eyelid 54832463049 9103 Active 2024 NATHANAEL VICTORIA [facility] 5 15:11:18 Congestiv e heart failure 90924598 Active 2024 NATHANAEL VICTORIA [facility] 5 16:21:48 Acute right otitis media 228205586 Active 2024 NATHANAEL VICTORIA [facility] 5 16:28:04 Pain of right shoulder joint 79894374618 586321 Active 2024 NATHANAEL VICTORIA [facility] 5 17:59:42 Hepatospl enomegaly 32097481 Active 2024 NATHANAEL VICTORIA [facility] 5 14:35:12 Thrombocy topenic disorder 300252153 Active 2024 NATHANAEL VICTORIA [facility] 5 14:35:13 Bilateral lower limb edema 772909774 Active 2024 MARLON HAEFFSARMAD [facility] 5 15:35:25 Acute urinary tract infection 872649621 Active 2024 NATHANAEL VICTORIA [facility] 5 14:32:57 Sarcoidos is 98592333 Active 2024 NATHANAEL VICTORIA [facility] 14:33:01 Problem Notes None recorded. Medical Equipment None Reported. Allergies Allergen ID Allergen Name Allergen Category Reaction Reaction Severity Criticality Documentation Date Start Date Code Code System Note Provider Name and Address Organization Details Recorded Time 28655 Product containin g penicilli n (product) medicatio n Not available Not available Not available 11/28/2022 55770 8001 SNOMED Comme nt: Recor ded 09/01 2:16P M by Briseida Joseph LPN, Offic e Visit ; Domingo rubio; Shruthi wade ce: *; ; Not Available Pending sale to [facility] 3 02:25:17 55520 Substance with sulfonami de structure and antibacte rial mechanism of action (substanc e) medicatio n Not available Not available Not available 03/22/2025 66666 8003 SNOMED Not Available david - [employer] - prod 5 06:48:45 59214 sulfameth oxazole / trimethop rim medicatio n rash Not available [facility] 03/22/20252007 22863 RxNorm Not Available [employer] - prod 5 06:50:41 [...] Wednesday and Wednesday; Recorded 8 8:15AM by Stevne Greenberg MD, [...] Address Organization Details Last Updated DateTime 5 178625. 02 g 98 % 3 L/min 107 /min 18 /min 97.5 [degF] 129/53 mm[Hg] MARLON GRAJEDA [facility] 5 15:33:51 Date Recorded Body weight Heart rate Respiratory rate Body temperature Oxygen saturation Systolic And Diastolic Provider Name and Address Organization Details Last Updated DateTime 5 136024. 93 g 107 /min 18 /min 97.5 [degF] 95 % 129/53 mm[Hg] NATHANAEL VICTORIA [facility] 5 16:01:18 Social History None recorded. Functional Status None recorded. Mental Status None recorded. Family History Nothing Reported. Medical History No medical history recorded. Immunizations Vaccine Type Date Status Note Provider Nam e and Address Organization Details Recorded Time influenza, unspecified formulation 8 completed Not Available [facility] 04/17/2025 09:08:23 Influenza, split virus, trivalent, preservative 0 completed Not Available [facility]ending [facility] to [facility] 04/17/2025 09:08:23 COVID-19, mRNA, LNP-S, PF, 100 mcg/0.5mL dose or 50 mcg/0.25mL dose 1 completed Not Available Pending sale to [facility] 04/17/2025 09:08:23 COVID-19, mRNA, LNP-S, PF, 100 mcg/0.5mL dose or 50 mcg/0.25mL dose 1 completed Not Available Pending sale to [facility] 04/17/2025 09:08:23 Influenza, split virus, quadrivalent, PF 1 completed Not Available Pending sale to [facility] 04/17/2025 09:08:23 COVID-19, mRNA, LNP-S, PF, 100 mcg/0.5mL dose or 50 mcg/0.25mL dose 1 completed Not Available Pending sale to [facility] 04/17/2025 09:08:23 Influenza, split virus, quadrivalent, PF 2 completed Not Available [facility]ending [facility] to [facility] 04/17/2025 09:08:23 Influenza, split virus, quadrivalent, PF 3 completed Not Available [facility]ending [facility] 04/17/2025 09:08:23 Influenza, split virus, trivalent, preservative 4 completed Not Available [facility] 04/17/2025 09:08:23 COVID-19, mRNA, LNP-S, PF, 50 mcg/0.5 mL 5 completed Not Available [facility] 04/17/2025 09:08:23 Past Encounters Encounter ID Performer Location Encounter Start Date Encounter Closed Date Diagnosis/Indication Diagnosis SNOMED-CT Code Diagnosis ICD10 Code Diagnosis IMO Codes Diagnosis Note [id number] Chris Parker DO [facility] ([facility]) [address] [place] [address] 5 01/22/2025 15:25:32 01/24/2025 09:26:09 Congestive heart failure 87981349 I50.9 Type 1 brad betes mellitus 81711825 E10.9 Hepatosplenomegaly 57272 000 R16.2 36044 [id number] Chris Parker DO [facility] ([facility]) [address] [place], [place] [address] 02/05/2025 14:15:56 02/06/2025 16:50:40 Hepatosplenomegaly 93331956 R16.2 05034 Ascites 192655109 R18.8 556198 Pancytopenia 390079518 D 61.818 [id number] Chris Parker DO [facility] ([facility]) [address] [place] [address] 02/08/2025 13:43:34 02/13/2025 12:53:21 Hyperglycemia due to type 2 diabetes mellitus 6153926807 39321 E11.65 Z79.4 Hepatosplenomegaly 61841 000 R16.2 40437 [id number] Chris Parker DO [facility] ([facility]) [address] [place] [address] 02/12/2025 13:42:12 02/14/2025 09:05:11 Post-discharge follow-up 673046322 Z09 435270 Essential hypertension 08199747 I10 Congestive heart failure 07047729 I50.9 [id number] SUSU FOUNTAIN PA-C [facility] ([facility]) [address] [place] [address] [place] [address] 02/21/2025 13:40:55 03/20/2025 07:29:37 Bilateral lower limb edema 789911957 R60.0 8676893 SPIRONALAC TONE 50MG QDBUMEX 3MG PO BID, [...] 02/21/2025 1 [place] Marciano Alonso [id number] Marciano Alonso 02/21/2025 2 [place] Marciano Alonso [id number] Marciano Alonso Notes Date Note Type Note Provider Name and Address Organization Details Recorded Time 02/21/2025 text/html EdemaReported by PatientHPIFor quality, patient reportspainfulbut reportslegs swell equallyandimproves overnight. For location, patient reportsble. For severity, patient reportsmoderate. For duration, patient reportsconstant. Pt with extreme edema from legs up to abdomen. On bumex and sprinolactone.Diabetic. Chris Parker DO [address] [place] [address], [phone], [facility] 03/19/2025 15:13:55 02/26/2025 text/html COPDReported by PatientHPI:For associated symptoms, patient reportsobesity. For onset/timing, patient reportsmultiple times per day. For duration, patient reportshas noted for years.ROS as noted in the HPI staff wants to discuss weight and sugars. Chris Parker DO [address] [place] [address], [phone], [facility] 02/27/2025 14:39:25
--- OUTSIDE RECORDS SUMMARY | 2025-04-21 20:13 | XMS_ITS | Continuity of Care Document ---
Author Organization [place] - Aravind Barboza [facility] Mikhail, Chas, [facility] ([facility]) Address [address] [place] [address] Assessment No assessment recorded. Plan of Treatment [...] By Organization Details Last Modified Time 02/26/2025 [id number] Improving volume overload. No ascites on paracentesis. Responding well to bumex and aldactone. GI with concerns for sarcoidosis. They started Linzess for constipation Sugars too high increase tresiba to 90 and aspart to 30. Lab from last week showing hypokalemia. Labs redrawn this morning. [email or web address] Not available 02/27/2025 14:39:12 Reason for Referral None Reported. Results Created Date Observation Date Name Description Value Unit Range Abnormal Flag Note LastModifiedBy Organization Detail LastModifiedTime 02/09/20 25 02/08/2025 imagi ng/di agnos tic resul t No observ ation record ed. [email or web address] [facility] [address] [place], [address], 02/12/2025 11:57:54 Result Notes None recorded. Problems Name Problem SNOMED Code Status Onset Date Resolution Date Notes Provider Name and Address Organization Details Recorded Time Essential hypertens ion 78744023 Active 2007 ESSENTIAL HYPERTENS ION; 8 2:16PM by Karla Joseph LPN, Office Visit; Promoted; acuity set as *; Not Available [facility] 07/29/202 3 03:17:47 Allergic rhinitis 64671199 Active 2007 ALLERGIC RHINITIS; 8 2:16PM by Karla Joseph LPN, Office Visit; Promoted; acuity set as *; Not Available [facility] 3 03:17:47 Persisten t insomnia 407382580 Active 2007 PERSISTEN T INSOMNIA; 8 2:16PM by Karla Joseph LPN, Office Visit; Promoted; acuity set as *; Not Available [facility] 3 03:17:52 Fracture of ankle 17261225 Active 2007 Ankle Fracture; 8 2:16PM by Karla Joseph LPN, Office Visit; Promoted; acuity set as *; Not Available [facility] 3 03:17:53 Peptic ulcer 86815964 Active 2007 PEPTIC ULCER; 8 2:16PM by Karla Joseph LPN, Office Visit; Promoted; acuity set as *; Not Available [facility] 3 03:17:53 Type 1 diabetes mellitus 99430542 Active 2007 DIABETES MELLITUS TYPE I; 8 2:16PM by Karla Joseph LPN, Office Visit; Promoted; acuity set as *; Not Available [facility] 3 03:17:58 Constipat ion 55433374 Active 2007 CONSTIPAT ION; 8 2:16PM by Karla Joseph LPN, Office Visit; Promoted; acuity set as *; Not Available [facility] 3 03:17:58 Amputated above knee 717276344 Active 2007 ABOVE KNEE AMPUTATIO N STATUS; 8 2:16PM by Karla Joseph LPN, Office Visit; Promoted; acuity set as *; Not Available [facility] 3 03:17:59 History of depressio n 638994524 Active 2007 DEPRESSIO N, NOS; 8 2:16PM by Karla Joseph LPN, Office Visit; Promoted; acuity set as *; Not Available [facility] 3 03:18:00 Hyperglyc emia due to type 2 diabetes mellitus 46872792358 9109 Active 2023 NATHANAEL tavarez, [facility] 4 13:09:52 Chronic back pain greater than three months duration 73156041322 2 Active 2023 [facility] 4 15:23:19 Blepharit is of right eyelid 42866050919 9103 Active 2024 NATHANAEL tavarez, [facility] 5 15:11:18 Congestiv e heart failure 45066052 Active 2024 [facility] 5 16:21:48 Acute right otitis media 134306208 Active 2024 [facility] 5 16:28:04 Pain of right shoulder joint 85167033354 096261 Active 2024 [facility] 5 17:59:42 Hepatospl enomegaly 36632534 Active 2024 NATHANAEL VICTORIA [facility] 5 14:35:12 Thrombocy topenic disorder 510351214 Active 2024 NATHANAEL VICTORIA [facility] 5 14:35:13 Bilateral lower limb edema 033072486 Active 2024 [facility]AS [facility] 5 15:35:25 Acute urinary tract infection 475683424 Active 2024 [facility] 5 14:32:57 Sarcoidos is 56006739 Active 2024 NATHANAEL JULIEN [facility] 5 14:33:01 Problem Notes None recorded. Medical Equipment None Reported. Allergies Allergen ID Allergen Name Allergen Category Reaction Reaction Severity Criticality Documentation Date Start Date Code Code System Note Provider Name and Address Organization Details Recorded Time 60715 Product containin g penicilli n (product) medicatio n Not available Not available Not available 11/28/2022 78609 8001 SNOMED Comme nt: Recor ded 09/01 2:16P M by Briseida Joseph LPN, Offic e Visit ; Promo joanne; Shruthi wade ce: *; ; Not Available [facility] 3 02:25:17 92282 Substance with sulfonami de structure and antibacte rial mechanism of action (substanc e) medicatio n Not available Not available Not available 03/22/2025 77617 8003 SNOMED Not Available [employer] - prod 5 06:48:45 67310 sulfameth oxazole / trimethop rim medicatio n rash Not available high 03/22/20252007 68842 RxNorm Not Available [employer] External Data Service - prod 5 06:50:41 [...] Recorded 8 2:43PM by Jory George CMT, [email or web address] l Summary; Refill Quantity: 0; Not Available Not Available Not Available carbamazep ine 200 mg tablet two times daily 2007 active Recorded 8 2:43PM by Jory George CMT, [email or web address] Summary; Refill Quantity: 0; Not Available [...] Recorded 8 2:43PM by Jory George CMT, [employer] l Summary; Refill Quantity: 0; Not Available [...] Address Organization Details Last Updated DateTime 5 032112. 93 g 107 /min 18 /min 97.5 [degF] 95 % 129/53 mm[Hg] NATHANAEL VICTORIA [facility], [facility] 5 16:01:18 Social History None recorded. Functional Status None recorded. Mental Status None recorded. Family History Nothing Reported. Medical History No medical history recorded. Immunizations Vaccine Type Date Status Note Provider Nam e and Address Organization Details Recorded Time influenza, unspecified formulation 8 completed Not Available [facility] 04/17/2025 09:08:23 Influenza, split virus, trivalent, preservative 0 completed Not Available [facility] 04/17/2025 09:08:23 COVID-19, mRNA, LNP-S, PF, 100 mcg/0.5mL dose or 50 mcg/0.25mL dose 1 completed Not Available [facility] 04/17/2025 09:08:23 COVID-19, mRNA, LNP-S, PF, 100 mcg/0.5mL dose or 50 mcg/0.25mL dose 1 completed Not Available [facility] 04/17/2025 09:08:23 Influenza, split virus, quadrivalent, PF 1 completed Not Available [facility] 04/17/2025 09:08:23 COVID-19, mRNA, LNP-S, PF, 100 mcg/0.5mL dose or 50 mcg/0.25mL dose 1 completed Not Available [facility] 04/17/2025 09:08:23 Influenza, split virus, quadrivalent, PF 2 completed Not Available [facility] 04/17/2025 09:08:23 Influenza, split virus, quadrivalent, PF 3 completed Not Available [facility] 04/17/2025 09:08:23 Influenza, split virus, trivalent, preservative 4 completed Not Available [facility] 04/17/2025 09:08:23 COVID-19, mRNA, LNP-S, PF, 50 mcg/0.5 mL 5 completed Not Available [facility] 04/17/2025 09:08:23 Past Encounters Encounter ID Performer Location Encounter Start Date Encounter Closed Date Diagnosis/Indication Diagnosis SNOMED-CT Code Diagnosis ICD10 Code Diagnosis IMO Codes Diagnosis Note [id number] Chris Parker DO [facility] ([facility]) [address] [address] 5 02/05/2025 14:15:56 02/06/2025 16:50:40 Hepatosplenomegaly 14993307 R16.2 56853 Ascites 233965255 R18.8 315963 Pancytopenia 211181823 D 61.818 [id number] Chris Parker DO [facility] ([facility]) [address] [place] [address] 5 02/08/2025 13:43:34 02/13/2025 12:53:21 Hyperglycemia due to type 2 diabetes mellitus 2775465375 64129 E11.65 Z79.4 Hepatosplenomegaly 55501 000 R16.2 08650 [id number] Chris Parker DO [facility] ([facility]) [address] [place] [address] 5 02/12/2025 13:42:12 02/14/2025 09:05:11 Post-discharge follow-up 780699180 Z09 302547 Essential hypertension 14843404 I10 Congestive heart failure 24158721 I50.9 [id number] SUSU FOUNTAIN PA-C [facility] ([facility]) [address] [place] [address] 5 02/21/2025 13:40:55 03/20/2025 07:29:37 Bilateral lower limb edema 099589853 R60.0 5465535 SPIRONALAC TONE 50MG QDBUMEX 3MG PO BID, ON LINZOLID for skin cellulitis .monitor BMP for cr and electrolyt es. [id number] Chris Parker DO [facility] ([facility]) [address] [place] [address] 02/26/2025 14:48:04 02/28/2025 08:09:20 Type 1 diabetes mellitus 21512506 E10.9 Congestive heart failure 23428019 I50.9 Essential hypertension 23434980 I10 Cirrhosis of liver 67162 007 K74.69 1569842 Chronic constipation 236 289119 K59.09 402636 Health Concerns Section Related Observation LastModified by Organization Detai ls LastModified Time None Recorded Concern Status LastModified by Organization Details LastModified Time None Recorded Payers Encounter Date Sequence Insurance Name Policy Number Policy Pate Covered Member ID Pate Member ID Guarantor Name 02/26/2025 1 [place] Marciano Recinos Gavin [id number] Marciano Jorje Alonso 02/26/2025 2 [place] Marciano Jorje Alonso [id number] Marciano Alonso Notes Date Note Type Note Provider Name and Address Organization Details Recorded Time 02/26/2025 text/html COPDReported by PatientHPI:For associated symptoms, patient reportsobesity. For onset/timing, patient reportsmultiple times per day. For duration, patient reportshas noted for years.ROS as noted in the HPI staff wants to discuss weight and sugars. Chris Parker DO [address] [place] [address], [phone], [facility] 02/27/2025 14:39:25
--- OUTSIDE RECORDS SUMMARY | 2025-04-21 20:13 | XMS_ITS | Clinical Summary ---
Author Organization [facility] Address [address] 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 Gender Identity Not on file Sexual [...] HEMOGLOBIN A1C 6.9(H) 4.0 - 6.0 % [facility] Blood specimen (specimen) 10/11/2008 1:40 PM CDT 10/11/2008 1:41 PM CDT us Katie Acosta DO CHEMISTRY ORDERABLES Final Result Performing Organization Address [facility] Phone Number INTERFACE SYSTEM Refer to clinic/hospital department [facility] CLIA# [id number] [address] [place] [address] * (ABNORMAL) MICROALBUMIN, RANDOM URINE (09/27/2008 1:30 PM CDT) MICROALBUMIN, URINE 20(H) <20 MG/L [facility] Blood specimen (specimen) 09/27/2008 1:30 PM CDT 09/27/2008 1:31 PM CDT Katie Acosta DO URINE ORDERABLES Susanne l Result Performing Organization Address [facility] Phone Number INTERFACE SYSTEM Refer to clinic/hospital department [facility] CLIA# [id number] [address] [place] [address] * (ABNORMAL) LIPID PANEL (09/27/2008 1:30 PM CDT) CHOLESTEROL 196 100 - 200 MG/DL [facility] TRIGLYCERIDE 218(H) 0 - 150 MG/DL [facility] HDL 23(L) 40 - 60 MG/DL [facility] LDL CALCULATED 129(H) 58 - 100 MG/DL [facility] Comment: CALCULATED LDL REFERENCE: < 100 Optimal 100 - 129 Near Optimal 130 - 159 Borderline High > 160 High Risk CHOL/HDL RATIO 8.52(H) 3.43 - 4.97 RATIO [facility] Blood specimen (specimen) 09/27/2008 1:30 PM CDT 09/27/2008 1:31 PM CDT Katie Acosta DO CHEMISTRY ORDERABLES Final Result Performing Organization Address [facility] Phone Number INTERFACE SYSTEM Refer to clinic/hospital department [facility] CLIA# [id number] [address] [place] [address] from Last 3 Months or Most Recently Relevant to Health Maintenance Insurance MEDICARE PART A AND B MEDICAID [place] Advance Directives For more information, please contact: [phone] Documents on File Type Date Recorded Patient Non Profit Job Titles Expl anation Advance Directive POA 01/20/2013 8:55 AM A dvance Directive POA Care Teams Community Health Agent Relationship Specialty Start Date End Date Cuba Solano MD PCP - General 07/11/09
--- OUTSIDE RECORDS SUMMARY | 2025-04-21 20:13 | XMS_ITS | Continuity of Care Document ---
Author Organization [place] - Aravind Moncada [facility], [facility], [facility] ([facility] Address [address] [address] Assessment No assessment recorded. Plan of Treatment [...] By Organization Details Last Modified Time 02/12/2025 [id number] hospital records reviewed dehydrated from diarrhea; diuretics held no fluid on attempted paracentesis, but lots of fluid in skin of abdomen [id number] Not available 02/12/2025 15:44:23 Reason for Referral None Reported. Results Created Date Observation Date Name Description Value Unit Range Abnormal Flag Note LastModifiedBy Organization Detail LastModifiedTime 02/09/2002/08/2025 imagi ng/di agnos tic resul t No observ ation record ed. [email or web address] [facility] [address] [place], [address], 02/12/2025 11:57:54 Result Notes None recorded. Problems Name Problem SNOMED Code Status Onset Date Resolution Date Notes Provider Name and Address Organization Details Recorded Time Essential hypertens ion 70950230 Active 2007 ESSENTIAL HYPERTENS ION; 8 2:16PM by Karla Joseph LPN, Office Visit; Promoted; acuity set as *; Not Available [facility] 3 03:17:47 Allergic rhinitis 10384922 Active 2007 ALLERGIC RHINITIS; 8 2:16PM by Karla Joseph LPN, Office Visit; Promoted; acuity set as *; Not Available [facility] 3 03:17:47 Persisten t insomnia 374797706 Active 2007 PERSISTEN T INSOMNIA; 8 2:16PM by Karla Joseph LPN, Office Visit; Promoted; acuity set as *; Not Available [facility] 3 03:17:52 Fracture of ankle 16506758 Active 2007 Ankle Fracture; 8 2:16PM by Karla Joseph LPN, Office Visit; Promoted; acuity set as *; Not Available [facility] 3 03:17:53 Peptic ulcer 50923259 Active 2007 PEPTIC ULCER; 8 2:16PM by Karla Joseph LPN, Office Visit; Promoted; acuity set as *; Not Available [facility] 3 03:17:53 Type 1 diabetes mellitus 12071678 Active 2007 DIABETES MELLITUS TYPE I; 8 2:16PM by Karla Joseph LPN, Office Visit; Promoted; acuity set as *; Not Available [facility] 3 03:17:58 Constipat ion 84065041 Active 2007 CONSTIPAT ION; 8 2:16PM by Karla Joseph LPN, Office Visit; Promoted; acuity set as *; Not Available [facility] 3 03:17:58 Amputated above knee 214731083 Active 2007 ABOVE KNEE AMPUTATIO N STATUS; 8 2:16PM by Karla Joseph LPN, Office Visit; Promoted; acuity set as *; Not Available [facility] 3 03:17:59 History of depressio n 912885626 Active 2007 DEPRESSIO N, NOS; 8 2:16PM by Karla Joseph LPN, Office Visit; Promoted; acuity set as *; Not Available [facility] 3 03:18:00 Hyperglyc emia due to type 2 diabetes mellitus 12896906011 9109 [facility] 13:09:52 Chronic back pain greater than three months duration 64963320722 2 Active 2023 NATHANAEL tavarez, [facility] 4 15:23:19 Blepharit is of right eyelid 97929487114 9103 Active 2024 [facility] 5 15:11:18 Congestiv e heart failure 90694570 Active 2024 NATHANAEL VICTORIA [facility] 5 16:21:48 Acute right otitis media 073931997 Active 2024 [facility] 16:28:04 Pain of right shoulder joint 70468142290 717183 Active 2024 NATHANAEL VICTORIA [facility] 5 17:59:42 Hepatospl enomegaly 89212972 Active 2024 NATHANAEL VICTORIA [facility] 5 14:35:12 Thrombocy topenic disorder 251691611 Active 2024 NATHANAEL VICTORIA [facility] 5 14:35:13 Bilateral lower limb edema 524894202 Active 2024 [facility] 5 15:35:25 Acute urinary tract infection 037061174 Active 2024 NATHANAEL VICTORIA [facility] 5 14:32:57 Sarcoidos is 23370376 Active 2024 NATHANAEL VICTORIA [facility] 5 14:33:01 Problem Notes None recorded. Medical Equipment None Reported. Allergies Allergen ID Allergen Name Allergen Category Reaction Reaction Severity Criticality Documentation Date Start Date Code Code System Note Provider Name and Address Organization Details Recorded Time 49439 Product containin g penicilli n (product) medicatio n Not available Not available Not available 11/28/2022 20252 8001 SNOMED Comme nt: Recor ded 09/01 2:16P M by Briseida Joseph LPN, Offic e Visit ; Promo joanne; Shruthi wade ce: *; ; Not Available [facility] 3 02:25:17 93680 Substance with sulfonami de structure and antibacte rial mechanism of action (substanc e) medicatio n Not available Not available Not available 03/22/2025 99813 8003 SNOMED Not Available [facility]id [employer] - prod 5 06:48:45 05925 sulfameth oxazole / trimethop rim medicatio n rash Not available [facility] 03/22/20252007 62417 RxNorm Not Available david [employer] - prod 5 06:50:41 Medications [...] Recorded 8 2:43PM by Jory George CMT, [employer] Summary; Refill Quantity: 0; Not Available [...] Address Organization Details Last Updated DateTime 5 309163. 69 g 112 /min 16 /min 98.2 [degF] 97 % 160/85 mm[Hg] NATHANAEL VICTORIA [facility] 5 14:34:17 Social History None recorded. Functional Status None recorded. Mental Status None recorded. Family History Nothing Reported. Medical History No medical history recorded. Immunizations Vaccine Type Date Status Note Provider Nam e and Address Organization Details Recorded Time influenza, unspecified formulation 8 completed Not Available [facility] 04/17/2025 09:08:23 Influenza, split virus, trivalent, preservative 0 completed Not Available [facility] 04/17/2025 09:08:23 COVID-19, mRNA, LNP-S, PF, 100 mcg/0.5mL dose or 50 mcg/0.25mL dose 1 completed Not Available [facility] 04/17/2025 09:08:23 COVID-19, mRNA, LNP-S, PF, 100 mcg/0.5mL dose or 50 mcg/0.25mL dose 1 completed Not Available [facility] 04/17/2025 09:08:23 Influenza, split virus, quadrivalent, PF 1 completed Not Available [facility] 04/17/2025 09:08:23 COVID-19, mRNA, LNP-S, PF, 100 mcg/0.5mL dose or 50 mcg/0.25mL dose 1 completed Not Available [facility] 04/17/2025 09:08:23 Influenza, split virus, quadrivalent, PF 2 completed Not Available [facility] 04/17/2025 09:08:23 Influenza, split virus, quadrivalent, PF 3 completed Not Available [facility] 04/17/2025 09:08:23 Influenza, split virus, trivalent, preservative 4 completed Not Available [facility] 04/17/2025 09:08:23 COVID-19, mRNA, LNP-S, PF, 50 mcg/0.5 mL completed [facility] Available [facility] 04/17/2025 09:08:23 Past Encounters Encounter ID Performer Location Encounter Start Date Encounter Closed Date Diagnosis/Indication Diagnosis SNOMED-CT Code Diagnosis ICD10 Code Diagnosis IMO Codes Diagnosis Note [id number] Chris Parker DO [facility] ([facility]) [address] [place] [address] 01/15/2025 12:18:30 01/17/2025 08:49:31 Type 1 diabetes mellitus 69940932 E10.9 Hepatosplenomegaly 13515 000 R16.2 37128 Pneumonia 848813469 J18. 9 [id number] Chris Parker DO [facility] ([facility] [address] [place] [phone] 01/18/2025 09:41:48 01/23/2025 16:25:08 [id number] Chris Parker DO [facility] ([facility]) [address] [place] [phone] 01/22/2025 15:25:32 01/24/2025 09:26:09 Congestive heart failure 22892000 I50.9 Type 1 brad betes mellitus 65960991 E10.9 Hepatosplenomegaly 73321 000 R16.2 64414 [id number] Chris Parker DO [facility] [address] [place] [address] 5 02/05/2025 14:15:56 02/06/2025 16:50:40 Hepatosplenomegaly 27081634 R16.2 15428 Ascites 617088514 R18.8 656683 Pancytopenia 033668905 D 61.818 [id number] Chris Parker DO [facility] ([facility]) [address] [place] [phone] 5 02/08/2025 13:43:34 02/13/2025 12:53:21 Hyperglycemia due to type 2 diabetes mellitus 6656589143 17619 E11.65 Z79.4 Hepatosplenomegaly 28543 000 R16.2 65195 [id number] Chris Parker DO [facility] ([facility]) [address] [place] [address] 02/12/2025 13:42:12 02/14/2025 09:05:11 Post-discharge follow-up [id number] Z09 741354 Essential hypertension 95691995 I10 Congestive heart failure 39579360 I50.9 Health Concerns Section Related Observation LastModified by Organization Detai ls LastModified Time None Recorded Concern Status LastModified by Organization Details LastModified Time None Recorded Payers Encounter Date Sequence Insurance Name Policy Number Policy Pate Covered Member ID Pate Member ID Guarantor Name 02/12/2025 1 [place] Marciano Alonso [id number] Marciano Alonso 02/12/2025 2 [place] Marciano Alonso [id number] Marciano Alonso Notes Date Note Type Note Provider Name and Address Organization Details Recorded Time 02/12/2025 text/html COPDReported by PatientHPI:For associated symptoms, patient reportsobesity. For onset/timing, patient reportsmultiple times per day. For duration, patient reportshas noted for years.ROS as noted in the HPI stayed in hospital over the weekend Chris Parker DO [address] [place] [address], [phone], [facility] 02/12/2025 15:44:36
--- OUTSIDE RECORDS SUMMARY | 2025-04-21 20:13 | XMS_ITS | Data Portability ---
Author Organization [facility] Nazario Costilla [facility], [place], [facility] Address [address] [place] [phone] Assessment No assessment recorded. Plan of Treatment [...] By Organization Details Last Modified Time 03/22/2025 [id number] Admitted with sepsis and volume overload. Evaluated by hematology and not able to use steroids with volume issues. He is planning to go to [place] to hear options for for granulomatous disease affecting his liver. Sleep study soon. [email or web address] Not available 03/25/2025 15:23:44 04/05/2025 [id number] Sugars too high, increase tresiba to 120 and aspart to 60 units. [email or web address] Not available 04/05/2025 15:03:14 Reason for Referral None Reported. Results Created Date Observation Date Name Description Value Unit Range Abnormal Flag Note LastModifiedBy Organization Detail LastModifiedTime 02/09/20 25 02/08/2025 imagi ng/di agnos tic resul t No observ ation record ed. [email or web address] [facility] [address] [place], [address], 02/12/2025 11:57:54 Result Notes None recorded. Problems Name Problem SNOMED Code Status Onset Date Resolution Date Notes Provider Name and Address Organization Details Recorded Time Essential hypertens ion 05962586 Active 2007 ESSENTIAL HYPERTENS ION; 8 2:16PM by Karla Joseph LPN, Office Visit; Promoted; acuity set as *; Not Available [facility] 3 03:17:47 Allergic rhinitis 38221810 Active 2007 ALLERGIC RHINITIS; 8 2:16PM by Karla Joseph LPN, Office Visit; Promoted; acuity set as *; Not Available [facility] 3 03:17:47 Persisten t insomnia 554400293 Active 2007 PERSISTEN T INSOMNIA; 8 2:16PM by Karla Joseph LPN, Office Visit; Promoted; acuity set as *; Not Available [facility] 3 03:17:52 Fracture of ankle 80039460 Active 2007 Ankle Fracture; 8 2:16PM by Karla Joseph LPN, Office Visit; Promoted; acuity set as *; Not Available [facility] 3 03:17:53 Peptic ulcer 74870786 Active 2007 PEPTIC ULCER; 8 2:16PM by Karla Joseph LPN, Office Visit; Promoted; acuity set as *; Not Available [facility] 3 03:17:53 Type 1 diabetes mellitus 11316862 Active 2007 DIABETES MELLITUS TYPE I; 8 2:16PM by Karla Joseph LPN, Office Visit; Promoted; acuity set as *; Not Available [facility] 3 03:17:58 Constipat ion 26246729 Active 2007 CONSTIPAT ION; 8 2:16PM by Karla Joseph LPN, Office Visit; Promoted; acuity set as *; Not Available [facility] 3 03:17:58 Amputated above knee 864811273 Active 2007 ABOVE KNEE AMPUTATIO N STATUS; 8 2:16PM by Karla Joseph LPN, Office Visit; Promoted; acuity set as *; Not Available [facility] 3 03:17:59 History of depressio n 853961860 Active 2007 DEPRESSIO N, NOS; 8 2:16PM by Karla Tune, ANESTHETIST, Office Visit; Promoted; acuity set as *; Not Available [facility] 3 03:18:00 Hyperglyc emia due to type 2 diabetes mellitus 51676060695 9109 Active 2023 [facility] 13:09:52 Chronic back pain greater than three months duration 88617755969 2 Active 2023 [facility] 4 15:23:19 Blepharit is of right eyelid 62328450104 9103 Active 2024 NATHANAEL VICTORIA [facility] 5 15:11:18 Congestiv e heart failure 87169741 Active 2024 NATHANAEL VICTORIA [facility] 5 16:21:48 Acute right otitis media 654532586 Active 2024 NATHANAEL VICTORIA [facility] 5 16:28:04 Pain of right shoulder joint 81468809395 740590 Active 2024 NATHANAEL VICTORIA [facility] 5 17:59:42 Hepatospl enomegaly 31691487 Active 2024 NATHANAEL VICTORIA [facility] 5 14:35:12 Thrombocy topenic disorder 758365151 Active 2024 NATHANAEL VICTORIA [facility] 5 14:35:13 Bilateral lower limb edema 265900523 Active 2024 [facility] 15:35:25 Acute urinary tract infection 898469441 Active 2024 NATHANAEL FISHER [facility] 5 14:32:57 Sarcoidos is 99382969 Active 2024 RASHEED [facility] 5 14:33:01 Problem Notes None recorded. Medical Equipment None Reported. Allergies Allergen ID Allergen Name Allergen Category Reaction Reaction Severity Criticality Documentation Date Start Date Code Code System Note Provider Name and Address Organization Details Recorded Time 67003 Product containin g penicilli n (product) medicatio n Not available Not available Not available 11/28/2022 46131 8001 SNOMED Comme nt: Recor ded 09/01 2:16P M by Briseida Joseph LPN, Offic e Visit ; Promo joanne; Shruthi wade ce: *; ; Not Available [facility] 3 02:25:17 27242 Substance with sulfonami de structure and antibacte rial mechanism of action (substanc e) medicatio n Not available Not available Not available 03/22/2025 46991 8003 SNOMED Not Available [employer] - prod 5 06:48:45 64542 sulfameth oxazole / trimethop rim medicatio n rash Not available [facility] 03/22/20252007 08911 RxNorm Not Available [employer] - prod 5 06:50:41 Medications [...] Recorded 8 2:43PM by Jory George CMT, [employer] [facility] Summary; Refill Quantity: 0; Not Available Not Available Not Available carbamazep ine 200 mg tablet two times daily 2007 active Recorded 8 2:43PM by Jory George CMT, [employer] [facility] Summary; Refill Quantity: 0; Not Available [...] Recorded 8 2:43PM by Jory George CMT, [employer] l Summary; Refill Quantity: 0; Not Available [...] Recorded 8 2:43PM by Jory George CMT, [facility] l Summary; Refill Quantity: 0; [...] Address Organization Details Last Updated DateTime 5 673560. 01 g 76 /min 15 /min 98.1 [degF] 98 % 102/58 mm[Hg] [facility] 5 14:29:59 Date Recorded Body weight Heart rate Respiratory rate Body temperature Oxygen saturation Systolic And Diastolic Provider Name and Address Organization Details Last Updated DateTime 5 735930. 64 g 65 /min 18 /min 96.2 [degF] 100 % 123/67 mm[Hg] [facility] 5 15:00:57 Social History None recorded. Functional Status None recorded. Mental Status None recorded. Family History Nothing Reported. Medical History No medical history recorded. Immunizations Vaccine Type Date Status Note Provider Nam e and Address Organization Details Recorded Time influenza, unspecified formulation 8 completed Not Available [facility] 04/17/2025 09:08:23 Influenza, split virus, trivalent, preservative 0 completed Not Available [facility] 04/17/2025 09:08:23 COVID-19, mRNA, LNP-S, PF, 100 mcg/0.5mL dose or 50 mcg/0.25mL dose 1 completed Not Available [facility] 04/17/2025 09:08:23 COVID-19, mRNA, LNP-S, PF, 100 mcg/0.5mL dose or 50 mcg/0.25mL dose 1 completed Not Available [facility] 04/17/2025 09:08:23 Influenza, split virus, quadrivalent, PF 1 completed Not Available [facility] 04/17/2025 09:08:23 COVID-19, mRNA, LNP-S, PF, 100 mcg/0.5mL dose or 50 mcg/0.25mL dose 1 completed Not Available [facility] 04/17/2025 09:08:23 Influenza, split virus, quadrivalent, PF 2 completed Not Available [facility] 04/17/2025 09:08:23 Influenza, split virus, quadrivalent, PF 3 completed Not Available [facility] 04/17/2025 09:08:23 Influenza, split virus, trivalent, preservative 4 completed Not Available [facility] 04/17/2025 09:08:23 COVID-19, mRNA, LNP-S, PF, 50 mcg/0.5 mL 5 completed Not Available [facility] 04/17/2025 09:08:23 Past Encounters Encounter ID Performer Location Encounter Start Date Encounter Closed Date Diagnosis/Indication Diagnosis SNOMED-CT Code Diagnosis ICD10 Code Diagnosis IMO Codes Diagnosis Note [id number] Chris Parker DO [facility] ([facility]) [address] [place] [address] 02/29/2024 08:37:45 02/29/2024 15:46:46 Chronic obstructive pulmonary disease 52998811 J44.9 Amputated above knee 299 794874 Z89.619 left Essential hypertension 16350633 I10 Hyperglyce jaleel due to type 2 diabetes mellitus 3848761025 26605 E11.65 [id number] Chris Parker DO [facility] ([facility]) [address] [place] [id number] 5 03/14/2024 13:21:57 03/14/2024 16:53:47 Candidiasis of skin 67561777 B37.2 [id number] Chris Parker DO [facility]) [address] [place] [id number] 5 04/11/2024 08:16:14 04/17/2024 11:22:39 History of depression 545880645 Z86.59 Amputated above knee 299 726272 Z89.619 left Hyperglyce jaleel due to type 2 diabetes mellitus 0990112620 76701 E11.65 [id number] Chris Parker DO [facility] ([facility]) [address] [place] [address] 5 05/08/2024 14:42:28 05/09/2024 14:13:27 History of depression 209737314 Z86.59 Hyperglyce jaleel due to type 2 diabetes mellitus 2279035188 72845 E11.65 Amputated above knee 299 253303 Z89.619 left [id number] Chris Parker DO [facility] ([facility]) [address] [place], [place] [address] 05/23/2024 13:28:32 05/25/2024 13:20:49 Hyperglycemia due to type 2 diabetes mellitus 2146563548 31563 E11.65 Blephariti s of right eyelid 7960043692 62203 H01.081 [id number] Chris Parker DO [facility] ([facility]) [address] [place] [address] 5 06/05/2024 14:01:27 06/07/2024 12:06:41 History of depression 494781343 Z86.59 Congestive heart failure 57432111 I50.9 Amputated above knee 299 476063 Z89.619 left Essential hypertension 22976429 I10 Hyperglyce jaleel due to type 2 diabetes mellitus 2968529691 88618 E11.65 Persistent insomnia 1919 72732 G47.00 [id number] Chris Parker DO [facility] ([facility]) [address] [place] [address] 06/15/2024 14:42:28 06/22/2024 06:57:36 Persistent insomnia 752378303 G47.00 Hyperglyce jaleel due to type 2 diabetes mellitus 2684694444 27515 E11.65 Congestive heart failure 54924522 I50.9 Visual disturbance 69646 001 H53.9 Viral syndrome 561120364 B34.9 [id number] Chris Parker DO [facility] ([facility]) [address] [place] [id number] 5 06/19/2024 14:32:25 06/27/2024 07:52:53 Congestive heart failure 43734179 I50.9 [id number] Chris Parker DO [facility] ([facility]) [address] [place], [place] [address] 07/17/2024 14:49:03 07/19/2024 06:58:14 History of depression 072725817 Z86.59 Persistent insomnia 1919 84684 G47.00 Impacted c erumen in right ear 5746929925 807554 H61.21 Middle ear effusion 1004 642551 H74.8X9 left [id number] Chris Parker DO [facility] ([facility]) [address] [place], [place] [address] 2024 13:12:54 07/25/2024 07:05:48 Acute right otitis media 242753086 H66.91 Dysuria 88012057 R30.0 [id number] Chris Parker DO [facility] ([facility]) [address] [place], [place] [address] 08/14/2024 13:21:30 08/23/2024 07:50:54 Hyperglycemia due to type 2 diabetes mellitus 8063888172 63123 E11.65 Congestive heart failure 01623322 I50.9 Amputated above knee 299 835991 Z89.619 left [id number] Chris Parker DO [facility] ([facility]) [address] [place], [place] [address] 09/04/2024 08:10:50 09/10/2024 09:07:59 Chronic pain of right upper limb 7071109516 8567346 M25.511 G89.29 974460 [id number] Chris Parker DO [facility] ([facility]) [address] [place], [place] [address] 10/09/2024 10:23:33 10/17/2024 15:32:18 History of depression 481292733 Z86.59 Hyperglyce jaleel due to type 2 diabetes mellitus 1458385922 37667 E11.65 Congestive heart failure 66322808 I50.9 Chronic ba ck pain greater than three months duration 3987719694 02 G89.29 Thrombocyt openic disorder 726573953 D69.6 91762 [id number] Chris Parker DO [facility] ([facility]) [address] [place], [place] [address] 10/30/2024 14:46:31 11/01/2024 11:47:18 History of depression 207074086 Z86.59 Hyperglyce jaleel due to type 2 diabetes mellitus 6759416971 43649 E11.65 Congestive heart failure 64412687 I50.9 [id number] Chris Parker DO [facility] ([facility]) [address] [place] [address] 11/02/2024 08:05:32 11/07/2024 08:24:49 Pain of right shoulder joint 9180334030 2007038 M25.511 641442 [id number] Chris Parker DO [facility] ([facility]) [address] [place] [id number] 5 11/23/2024 11:52:48 12/06/2024 08:38:17 Pain of right shoulder joint 1452993665 4015718 M25.511 710421 Supraspinatus tear 71543 6004 M75.101 [id number] Rupture of infraspinatus tendon 702411442 S46.811A 12417717 Rupture williamson bscapularis tendon 616371689 S46.811A 6824924163 Hyperglyce jaleel due to type 2 diabetes mellitus 0200933521 65215 E11.65 Z79.4 64897053 [id number] Chris Parker DO [facility] ([facility]) [address] [place] [address] 5 11/27/2024 14:15:45 12/06/2024 09:32:58 Thrombocytopenic disorder 928915459 D69.6 18666 Hepatosplenomegaly 59976 000 R16.2 55356 [id number] Chris Parker DO [facility] ([facility]) [address] [place] [address] 5 12/14/2024 12:31:55 12/27/2024 18:42:02 [id number] Chris Parker DO [facility] ([facility]) [address] [place] [address] 5 01/11/2025 12:12:21 01/16/2025 10:56:12 Hyperglycemia due to type 2 diabetes mellitus 6143169857 97227 E11.65 Z79.4 [id number] Chris Parker DO [facility] ([facility]) [address] [place] [address] 01/15/2025 12:18:30 01/17/2025 08:49:31 Type 1 diabetes mellitus 10109059 E10.9 Hepatosplenomegaly 10352 000 R16.2 22973 Pneumonia 385174294 J18. 9 3167039014 [id number] Chris Parker DO [facility] ([facility]) [address] [place] [address] 01/18/2025 09:41:48 01/23/2025 16:25:08 [id number] Chris Parker [facility] ([facility]) [address] [place], [place] [address] 01/22/2025 15:25:32 01/24/2025 09:26:09 Congestive heart failure 86166016 I50.9 Type 1 brad betes mellitus 10387138 E10.9 Hepatosplenomegaly 32147 000 R16.2 73600 [id number] Chris Parker [facility] ([facility]) [address] [place] [address] 5 02/05/2025 14:15:56 02/06/2025 16:50:40 Hepatosplenomegaly 65597458 R16.2 38664 Ascites 136767512 R18.8 498034 Pancytopenia 948827262 D 61.818 69383 [id number] Chris Parker DO [facility] ([facility]) [address] [place] [address] 5 02/08/2025 13:43:34 02/13/2025 12:53:21 Hyperglycemia due to type 2 diabetes mellitus 4677651963 56403 E11.65 Z79.4 Hepatosplenomegaly 06371 000 R16.2 62205 [id number] Chris Parker [facility] ([facility]) [address] [place] [address]871 5 02/12/2025 13:42:12 02/14/2025 09:05:11 Post-discharge follow-up 918509717 Z09 643847 Essential hypertension 80593987 I10 Congestive heart failure 79048503 I50.9 [id number] SUSU FOUNTAIN PA-C [facility] ([facility]) [address] [place] [address] 02/21/2025 13:40:55 03/20/2025 07:29:37 Bilateral lower limb edema 288772309 R60.0 1744360 SPIRONALAC TONE 50MG QDBUMEX 3MG PO BID, ON LINZOLID for skin cellulitis .monitor BMP for cr and electrolyt es. [id number] Chris Parker DO [facility] ([facility]) [address] [place] [address] 02/26/2025 14:48:04 02/28/2025 08:09:20 Type 1 diabetes mellitus 63468811 E10.9 Congestive heart failure 47205444 I50.9 Essential hypertension 83076673 I10 Cirrhosis of liver 42351 007 K74.69 4466921 Chronic constipation 236 346140 K59.09 792108 [id number] Chris Parker DO [facility] ([facility]) [address] [place] [address] 03/22/2025 09:18:02 03/26/2025 11:28:18 Post-discharge follow-up 151256168 Z09 407829 Acute urin constance tract infection 632771832 N39.0 308202 Essential hypertension 96934784 I10 Congestive heart failure 42401629 I50.9 Hyperglyce jaleel due to type 2 diabetes mellitus 1278084889 59798 E11.65 Z79.4 Sarcoidosis 29161638 D86 .9 [id number] Chris Parker DO [facility] ([facility]) [address] [place] [address] 5 04/05/2025 12:29:02 04/12/2025 12:50:40 Type 1 diabetes mellitus 68513500 E10.9 Health Concerns Section Related Observation LastModified by Organization Detai ls LastModified Time None Recorded Concern Status LastModified by Organization Details LastModified Time None Recorded Advance Directives Directive None Recorded Payers Insurance Date Sequence Insurance Name Policy Number Policy Pate Covered Member ID Pate Member ID Guarantor Name 02/29/2024 1 *SELF PAY* Michael Alonso 04/05/2025 [place] - [place] A - [facility] (MEDICARE) Marciano Alonso [id number] Marciano Alonso 04/05/2025 [place] [facility] ([facility]) Marciano Alonso [id number] Marciano Alonso 04/05/2025 2 [place] Marciano Alonso [id number] Marciano Alonso 04/05/2025 1 [place] Marcaino Alonso [id number] Marciano Alonso Notes Date Note Type Note Provider Name and Address Organization Details Recorded Time 03/22/2025 text/html COPDReported by PatientHPI:For associated symptoms, patient reportsobesity. For onset/timing, patient reportsmultiple times per day. For duration, patient reportshas noted for years.ROS as noted in the HPI ER follow up after hallucinatoins. Chris Parker DO [address] [place] [address], [phone], [facility] 03/25/2025 15:23:56 04/05/2025 text/html COPDReported by PatientI:For associated symptoms, patient reportsobesity. For onset/timing, patient reportsmultiple times per day. For duration, patient reportshas noted for years.ROS as noted in the HPI staff reports sugars are too high. Chris Parker DO [address] [place] [address], [phone], [facility] 04/11/2025 18:06:37
--- NOTE | 2025-04-21 20:21 | W.ED.AMS ---
HPI - Altered Mental Status General: Chief Complaint: Altered Mental Status Stated Complaint: weakness History of Present Illness: Patient is a 59-year-old male with past medical history of gout, diabetes, hypertension, BPH, HLD, A-fib, CHF who presents to the ED with concerns of weakness. Patient is in a correction, some family was visiting him today and thought he looked a little more tired and lethargic than normal and so EMS was called. Patient endorses a slightly decreased appetite lately but no vomiting or diarrhea. Does not recall any fevers, chills. He has a chronic indwelling Constantino, states this was last changed last week. He denies any falls. Denies any chest pain or shortness of breath worse from normal. Related Data Home Medications ?Medication ?Instructions ?Recorded ?Confirmed allopurinol 300 mg tablet 300 mg PO DAILY 05/08/19 04/06/25 cholecalciferol (vitamin D3) 25 1,000 unit PO DAILY 05/08/19 04/06/25 mcg (1,000 unit) capsule montelukast 10 mg tablet 10 mg PO BEDTIME 05/08/19 04/06/25 metoclopramide HCl 10 mg tablet 10 mg PO QID Indigestion 04/16/22 04/06/25 (Reglan) multivit-minerals no.60-ferrous 1 tab PO DAILY 10/16/22 04/06/25 fumarate-folic acid 27 mg-1 mg tablet (Niva-Plus) metoprolol tartrate 100 mg tablet 100 mg PO BID 12/28/23 04/06/25 magnesium hydroxide 400 mg/5 mL 30 ml PO .Q72H PRN Constipation 04/24/24 04/06/25 oral suspension (Milk of Magnesia) sodium phosphates 19 gram-7 118 ml WV DAILY PRN Constipation 04/24/24 04/06/25 gram/118 mL enema (Fleet Enema) tamsulosin 0.4 mg capsule (Flomax) 0.4 mg PO BID 04/24/24 04/06/25 acetaminophen 500 mg capsule 500 mg PO Q6H PRN pain or fever 09/08/24 04/06/25 budesonide 160 mcg-glycopyr 9 2 inh inhalation BID 09/08/24 04/06/25 mcg-formot 4.8 mcg/actuation HFA inhaler (Breztri Aerosphere) albuterol sulfate 2.5 mg/3 mL 2.5 mg inhalation Q6H PRN Dyspnea 02/05/25 04/06/25 (0.083 %) solution for nebulization atorvastatin 20 mg tablet 20 mg PO DAILY 02/05/25 04/06/25 brinzolamide 1 % eye 1 drp ophthalmic (eye) BID 02/05/25 04/06/25 drops,suspension latanoprost 0.005 % eye drops 1 drp ophthalmic (eye) BEDTIME 02/05/25 04/06/25 triamcinolone acetonide 0.1 % 1 applic topical BID PRN skin 02/09/25 04/06/25 topical cream irritation on ears bisacodyl 5 mg tablet 10 mg PO DAILY PRN Constipation 02/14/25 04/06/25 miscellaneous medical supply 02/14/25 04/06/25 (Ocusoft Eyelid Cleansing Pads) semaglutide 1 mg/dose (4 mg/3 mL) 1 mg SUBCUT Q7D 02/14/25 04/06/25 subcutaneous pen injector (Ozempic) menthol 0.8 % topical powder (Gold See Rx Instructions .Route .COMPLEX 03/13/25 04/06/25 Castillo Medicated Body) ondansetron 8 mg disintegrating 8 mg PO Q6H PRN Nausea And Vomiting 03/13/25 04/06/25 tablet potassium chloride 20 mEq 20 meq PO DAILY 03/13/25 04/06/25 tablet,extended release(part/cryst) omeprazole 40 mg capsule,delayed 40 mg PO BID 03/19/25 04/06/25 release bumetanide 1 mg tablet 3 mg PO BID 03/21/25 04/06/25 hydrocodone 5 mg-acetaminophen 325 1 tab PO .Q8H PRN pain 04/06/25 04/06/25 mg tablet lidocaine 4 % topical patch 1 patch topical BID 04/06/25 04/06/25 (Lidocaine Pain Relief) lubiprostone 8 mcg capsule 8 mcg PO BID 04/06/25 04/06/25 miscellaneous medical supply 04/06/25 04/06/25 (Ocusoft Eyelid Cleansing Pads) semaglutide 2 mg/dose (8 mg/3 mL) 2 mg SUBCUT Q7D 04/06/25 04/06/25 subcutaneous pen injector (Ozempic) white petrolatum-mineral oil 94 1 applic ophthalmic (eye) BEDTIME 04/06/25 04/06/25 %-3 % eye ointment (GenTeal Tears Severe (petrolatum-mineral oil)) Previous Rx's ?Medication ?Instructions ?Recorded fluticasone propionate 50 1 spray intranasal BID #15.8 mL 07/18/19 mcg/actuation nasal spray,suspension pregabalin 50 mg capsule 50 mg PO TID #90 caps 03/22/24 diltiazem HCl 180 mg 180 mg PO DAILY #30 caps 02/11/25 capsule,extended release 24 hr (Cardizem CD) apixaban 5 mg tablet (Eliquis) 5 mg PO BID #180 tabs 03/22/25 fosfomycin tromethamine 3 gram 3 g PO Q3D 30 days #10 ea 04/10/25 oral packet amiodarone 400 mg tablet 200 mg (1/2 x 400 mg) PO QAM #30 04/11/25 tabs insulin aspart U-100 100 unit/mL 10 unit SUBCUT TID #15 mL 04/11/25 (3 mL) subcutaneous pen insulin degludec 100 unit/mL (3 10 unit (0.1 mL) SUBCUT BEDTIME 04/11/25 mL) subcutaneous pen (Tresiba #15 mL FlexTouch U-100 insulin) Allergies Allergy/AdvReac Type Severity Reaction Status Date / Time Penicillins Allergy ALGY-Hives Verified 04/21/25 20:04 Sulfa (Sulfonamide Allergy ALGY-Hives Verified 04/21/25 20:04 Antibiotics) Review of Systems General: Reports: 10 or more systems reviewed and unremarkable except in HPI and below Const: Denies: fever(s) or chills Eyes: Denies: change in vision or eye discharge Card: Denies: chest pain, palpitations or swelling of feet/ankles Resp: Denies: dyspnea or productive cough GI: Denies: abdominal pain or diarrhea : Denies: difficulty urinating Musc: Denies: neck pain or back pain Skin/Breast: Denies: rash or jaundice Neuro: Denies: headache(s), numbness in extremities or weakness in extremities Darion/Lymph: Denies: easy bruising or easy bleeding PFSH ED PFSH: Medical History (Updated 04/22/25 @ 00:00 by ALINA Andino) USP (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 of oral hypoglycemic drugs UTI (urinary tract infection) Chronic indwelling Constantino catheter Sleep apnea, unspecified Constipation Dry eye syndrome of unspecified lacrimal gland Unspecified glaucoma Gastro-esophageal reflux disease without esophagitis Benign prostatic hyperplasia without lower urinary tract symptoms Gout, unspecified Hyperlipidemia, unspecified 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 heart failure USP (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 of 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 Muscle weakness (generalized) COPD (chronic obstructive pulmonary disease) USP (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 of anticoagulants Chronic atrial fibrillation, unspecified Open wound of left lower quadrant of abdominal wall without penetration into peritoneal cavity Intertriginous dermatitis associated with moisture Morbid obesity Atrial flutter Encounter for screening colonoscopy Repeat screening colonoscopy in 10 years unless otherwise specified Chronic low back pain Chronic right shoulder pain Diabetes mellitus Shoulder pain BILATERAL Encounter for long-term use of opiate analgesic Right knee pain Amputation above knee Left Diabetes type 2, controlled Essential hypertension Dysuria-frequency syndrome Seizure BPH (benign prostatic hyperplasia) Primary osteoarthritis of both knees r knee Obstructive sleep apnea syndrome Surgical History History of left above knee amputation History of shoulder surgery 2001 x 2 L shoulder Family History Other Heart disease Hypertension Social History Smoking and tobacco/nicotine status: never used tobacco/nicotine Quit status (tobacco/nicotine): not considering quitting Second hand smoke exposure: No Alcohol intake: never Substance/Drug Use: never Additional social history: Patient chews a can of tobacco daily. 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 GCS 15, alert and oriented x 4, able to spontaneously and symmetrically move all 4 extremities, left BKA. Abdomen protuberant but soft and nontender, bowel sounds decreased but intact, no CVA tenderness. Normal sinus rhythm with soft blood pressure, mild nonpitting edema, pale but 2+ pulses throughout. Breath sounds coarse and decreased but nothing adventitious, breathing comfortably on room air, saturating well, no signs of increased work of breathing. Course Vital Signs: Vital signs: Vital Signs Temperature 99.2 F 04/21/25 19:58 Pulse Rate 94 04/21/25 22:45 Respiratory Rate 18 04/21/25 19:58 Blood Pressure 96/66 04/21/25 22:45 Pulse Oximetry 97 04/21/25 22:45 Oxygen Delivery Me thod Room Air 04/21/25 21:04 Clincial Decision Support The following clinical decision support tools were used to aid in care of the patient HEART Score -> History: Slightly Suspicous, EKG: Non-specific Changes, Age: 45-64 yrs, Risk Factors: >/=3 Risk Factors, Troponin: Baseline Trop >45 ng/L. Resulting HEART Score: 6. MDM - Altered Mental Status Medical Decision Making -ddx: Gastroenteritis, foodborne illness, complicated cystitis, URI, pneumonia, viral syndrome, dehydration, electrolyte abnormality, ACS, dysrhytmia - Patient chronically ill-appearing, endorses no symptoms at this time, family that was visiting today thought he looked a little weak and more tired than usual so EMS was called, patient endorses a mild decreased p.o. intake lately but no obvious infectious etiology. He recently had a right PICC line removed for osteomyelitis that ultimately led to his recent left BKA. Will evaluate with infectious/cardiac labs and reassess. - Patient with ultimately very reassuring workup in setting of his recent hospitalizations, surgeries and infections. His ESR was still very elevated but he is to finish antibiotics in 2 days, his UA was negative for any infection, possible consolidations on his chest x-ray were further elucidated with jernigan CT imaging which did not reveal any concerns for pneumonia or any other intra-abdominal pathology, there was no CT head findings that would have been a worrisome explanation for his weakness/possible episode of AMS. Troponins very mildly elevated from baseline but BNP was also, heart score intermediate risk with a score of 6 but will always be high risk with his comorbidities and elevated troponins at baseline with his heart failure, he did not have clinical signs of being overtly fluid overloaded, did not require oxygen and had no active complaints of chest pain or shortness of breath, his mental status remained GCS 15, alert and oriented x 4 on his whole stay here, patient is in a rehab facility and is monitored closely and so it was deemed that he had a combination of deconditioning from all of his recent hospitalizations and relative decreased p.o. combining to cause his symptoms, and with him otherwise feeling well and having a reliable support system, we agreed that he could be discharged home with close and facility PCP follow-up in a few days for overall reevaluation, strict return precautions given, family at bedside and agreeable with plan of care, patient discharged in stable condition with strict return precautions given. Lab Data 04/21/25 20:08 04/21/25 20:08 Radiology Impressions Chest X-Ray 04/21/25 20:04 IMPRESSION: Findings of consolidation left upper lobe and left lower lobe multilobar pneumonia suspected. Correlate and follow-up as indicated Suspicion of small left-sided pleural effusion Chest/Abdomen/Pelvis CT 04/21/25 21:29 IMPRESSION: No focal consolidations. IMPRESSION: 1. The spleen is enlarged measuring up to 16.0 cm in length. 2. No bowel obstruction or inflammatory process associated with the bowel. 3. No free air or significant free fluid in the abdomen or pelvis. 4. No evidence of appendicitis. COMMENTS: Consistent with the [employer]'s Incidental Findings Committee white paper (J Am Henrique Radiol 2018): Any incidental renal lesion less than 1 cm or classified as too small to characterize, or any incidental cystic renal lesion characterized as simple-appearing, is likely benign. No follow-up imaging is recommended for these lesions per consensus recommendations based on imaging criteria. Head CT 04/21/25 21:29 IMPRESSION: No acute intracranial hemorrhage. No midline shift or mass effect. Laboratory Results WBC 5.17 10^3/uL (3.29-11.43) 04/21/25 20:08 RBC 3.31 10^6/uL (3.85-5.65) L 04/21/25 20:08 Hgb 8.20 g/dL (11.27-16.99) L 04/21/25 20:08 Hct 26.9 % (37-53) L 04/21/25 20:08 MCV 81.3 fl (82-101) L 04/21/25 20:08 MCH 24.8 pg (27-33) L 04/21/25 20:08 MCHC 30.5 g/dL (30-55) 04/21/25 20:08 RDW 22.8 % (12.1-15.1) H 04/21/25 20:08 Plt Count 206 10^3/cmm (157-399) 04/21/25 20:08 MPV 10.8 fL (7.4-10.4) H 04/21/25 20:08 Neut % (Auto) 72.1 % 04/21/25 20:08 Lymph % (Auto) 14.9 % 04/21/25 20:08 Haakon % (Auto) 8.7 % 04/21/25 20:08 Eos % (Auto) 3.3 % 04/21/25 20:08 Baso % (Auto) 0.6 % 04/21/25 20:08 Neut # (Auto) 3.73 10^3/uL (1.8-7.7) 04/21/25 20:08 Lymph # (Auto) 0.8 10^3/uL (0.8-4.8) 04/21/25 20:08 Haakon # (Auto) 0.5 10^3/uL (0.2-0.9) 04/21/25 20:08 Eos # (Auto) 0.2 10^3/uL (0.0-0.8) 04/21/25 20:08 Baso # (Auto) 0.0 10^3/uL (0.0-0.1) 04/21/25 20:08 Nucleated RBC % (auto) 0 % 04/21/25 20:08 Nucleated RBCs # 0.0 /100WBC 04/21/25 20:08 ESR 115 mm/hr (0-10) H 04/21/25 20:08 Sodium 139 mmol/L (136-145) 04/21/25 20:08 Potassium 3.6 mmol/L (3.5-5.1) 04/21/25 20:08 Chloride 101 mmol/L (98-107) 04/21/25 20:08 Carbon Dioxide 26 mmol/L (22-29) 04/21/25 20:08 Anion Gap 15.6 (5-19) 04/21/25 20:08 BUN 34 mg/dL (8-23) H 04/21/25 20:08 Creatinine 1.2 mg/dL (0.7-1.2) 04/21/25 20:08 GFR Calculation 61.6 mL/min (90-130) L 04/21/25 20:08 Glucose 89 mg/dL (65-115) 04/21/25 20:08 Calculated Osmolality 295 mOsm/kg (285-295) 04/21/25 20:08 Lactic Acid 1.8 mmol/L (0.5-2.2) 04/21/25 20:08 Calcium 9.3 mg/dL (8.5-10.5) 04/21/25 20:08 Phosphorus 3.7 mg/dL (2.5-4.5) 04/21/25 20:08 Magnesium 1.9 mg/dL (1.7-2.3) 04/21/25 20:08 Total Bilirubin 1.6 mg/dL (0.15-1.2) H 04/21/25 20:08 AST 86 U/L (0-40) H 04/21/25 20:08 ALT 37 U/L (0-41) 04/21/25 20:08 Alkaline Phosphatase 133 U/L (40-130) H 04/21/25 20:08 Troponin T Baseline 107 ng/L (0-15) H* 04/21/25 20:08 Troponin T 60 Minute 108.4 ng/L (0-15) H 04/21/25 21:09 Delta Troponin T 1.4 ABS# (0-10) 04/21/25 21:09 C-Reactive Protein 18.8 mg/L (0.0-4.9) H 04/21/25 20:08 C-React Prot High Sens 1.960 mg/dL (0.0-0.3) H 04/21/25 20:08 NT-Pro-B Natriuret Pep 360 pg/mL (0-125) H 04/21/25 20:08 Total Protein 6.0 g/dL (6.6-8.7) L 04/21/25 20:08 Albumin 2.9 g/dL (3.5-5.2) L 04/21/25 20:08 Globulin 3.1 g/dL (1.3-4.6) 04/21/25 20:08 Procalcitonin 0.22 ng/mL (0-0.5) 04/21/25 20:08 Urine Color Yellow (Yellow) 04/21/25 20:11 Urine Appearance Cloudy (CLEAR) A 04/21/25 20:11 Urine pH 5.5 (5-7) 04/21/25 20:11 Ur Specific Cobden 1.013 (1.005-1.030) 04/21/25 20:11 Urine Protein Negative (Negative) 04/21/25 20:11 Urine Glucose (UA) Negative (Normal) 04/21/25 20:11 Urine Ketones Negative (Negative) 04/21/25 20: Urine Blood 1+ (Negative) A 04/21/25 20: Urine Nitrate Negative (Negative) 04/21/25 20: Urine Bilirubin Negative (Negative) 04/21/25 20:11 Urine Urobilinogen 1.0 mg/dL (Negative) 04/21/25 20: Ur Leukocyte Esterase Negative (Negative) 04/21/25 20: Urine RBC 6-10 /hpf (0-2) 04/21/25 20:11 Urine WBC 0-5 /hpf (0-5) 04/21/25 20:11 Ur Squamous Epith Cells 0-5 /hpf (0-5) 04/21/25 20:11 Amorphous Sediment Not Reportable 04/21/25 20:11 Urine Bacteria None seen /hpf (NONE) 04/21/25 20: Hyaline Casts 3.71 /lpf 04/21/25 20:11 All radiology interpretation(s) finalized by discharge Discharge Plan Discharge Patient Disposition: Home Clinical Impression: Weakness Condition: Stable Prescriptions: No Action montelukast 10 mg tablet 10 mg PO BEDTIME allopurinol 300 mg tablet 300 mg PO DAILY cholecalciferol (vitamin D3) 1,000 unit capsule 1,000 unit PO DAILY tamsulosin [Flomax] 0.4 mg capsule 0.4 mg PO BID magnesium hydroxide [Milk of Magnesia] 400 mg/5 mL suspension 30 ml PO .Q72H PRN (Reason: Constipation) Fleet Enema 19-7 gram/118 mL enema 118 ml WV DAILY PRN (Reason: Constipation) metoclopramide HCl [Reglan] 10 mg tablet 10 mg PO QID Niva-Plus 27 mg iron- 1 mg tablet 1 tab PO DAILY metoprolol tartrate 100 mg tablet 100 mg PO BID acetaminophen 500 mg capsule 500 mg PO Q6H PRN (Reason: pain or fever) Afia Aerosphere 160-9-4.8 mcg/actuation HFA aerosol inhaler 2 inh inhalation BID omeprazole 40 mg capsule,delayed release(DR/EC) 40 mg PO BID fluticasone propionate 50 mcg/actuation spray,suspension 1 spray INTRANASAL BID Qty: 15.8 6RF pregabalin 50 mg capsule 50 mg PO TID Qty: 90 5RF bumetanide 1 mg tablet 3 mg PO BID Rx Instructions: take one extra tablet as needed for weight gain of 2 pounds in a day or 5 pounds in a week Eliquis 5 mg tablet 5 mg PO BID Qty: 180 0RF Gold Castillo Medicated Body 0.8 % Powder See Rx Instructions .ROUTE .COMPLEX Rx Instructions: Cleanse abdominal folds ensuring completely dry then apply to entire abdominal folds and under arms every shift. ondansetron 8 mg tablet,disintegrating 8 mg PO Q6H PRN (Reason: Nausea And Vomiting) potassium chloride 20 mEq tablet,ER particles/crystals 20 meq PO DAILY albuterol sulfate 2.5 mg /3 mL (0.083 %) solution for nebulization 2.5 mg inhalation Q6H PRN (Reason: Dyspnea) brinzolamide 1 % drops,suspension 1 drp ophthalmic (eye) BID latanoprost 0.005 % drops 1 drp ophthalmic (eye) BEDTIME atorvastatin 20 mg tablet 20 mg PO DAILY triamcinolone acetonide 0.1 % cream 1 applic TOPICAL BID PRN (Reason: skin irritation on ears) diltiazem HCl [Cardizem CD] 180 mg capsule,extended release 24hr 180 mg PO DAILY Qty: 30 0RF bisacodyl 5 mg Tablet 10 mg PO DAILY PRN (Reason: Constipation) (DME) Ocusoft Eyelid Cleansing Pads Pad MISCELLANEOUS Ozempic 1 mg/dose (4 mg/3 mL) pen injector 1 mg SUBCUT Q7D Rx Instructions: Wednesday GenTeal Tears Severe(petrolat) 94-3 % ointment 1 applic ophthalmic (eye) BEDTIME lidocaine [Lidocaine Pain Relief] 4 % adhesive patch,medicated 1 patch TOPICAL BID MDD on in am/off in pm (DME) Ocusoft Eyelid Cleansing Pads Pad MISCELLANEOUS Rx Instructions: Use 1 pad on each eyelid once daily lubiprostone 8 mcg capsule 8 mcg PO BID Ozempic 2 mg/dose (8 mg/3 mL) pen injector 2 mg SUBCUT Q7D Rx Instructions: Wednesday' hydrocodone-acetaminophen 5-325 mg tablet 1 tab PO .Q8H PRN (Reason: pain) fosfomycin tromethamine 3 gram packet 3 g PO Q3D 30 Days Qty: 10 1RF amiodarone 400 mg tablet 200 mg PO QAM Qty: 30 0RF insulin aspart U-100 100 unit/mL (3 mL) insulin pen 10 unit SUBCUT TID Qty: 15 0RF Protocol: Insulin Corrective High-Dose Regimen Condition: Fingerstick Blood Glucose Dose/Route: Insulin Units Condition: 141-180 mg/dl Dose/Route: 2 units/SQ Condition: 181-220 mg/dl Dose/Route: 4 units/SQ Condition: 221-260 mg/dl Dose/Route: 6units/SQ Condition: 261-300 mg/dl Dose/Route: 8 units/SQ Condition: 301-350 mg/dl Dose/Route: 10 units/SQ Condition: 351-400 mg/dl Dose/Route: 12 units/SQ Condition: greater than 400 mg/dl Dose/Route: 14units/SQ Rx Instructions: with meals insulin degludec [Tresiba FlexTouch U-100] 100 unit/mL (3 mL) insulin pen 10 unit SUBCUT BEDTIME Qty: 15 0RF Discharge Orders: Discharge ED (Routine); Ordered 04/21/25 Ordered By: Daljit Card Referrals: Chris Parker DO [Primary Care Provider, Internal Medicine] Discharge Diet: Soft Mechanical Discharge Activity: Increase activity as tolerated Patient Instructions: Altered Mental Status (ED), Opioid Safety, Pain Management, Patient Portal & Neeraj Instructions Activity Restrictions/Additional Instructions: You were seen for your weakness, you were evaluated with CT scans, an EKG, laboratory studies that were all reassuring. You most likely have generalized deconditioning from all your recent illnesses and stays in the hospital but your infectious markers were consistent with an infection that is mostly resolved and so you should be safe to finish off antibiotics on Wednesday, just in case, additional blood cultures were drawn and you will be called if these return positive and with the next steps to take. In the meantime, the most important thing is to work on your strength and getting back to your normal activity as able. Return to the ED with severe worsening of your weakness, fevers, difficulties breathing, severe abdominal pain, any other emergent concerns. Print Language: Divehi Coding Level of Care Code ED Town Clerk for Jeronimo Enamorado
[2025-04-21 20:30] LABS: Hematocrit 26.9 % (37-53); Hemoglobin 8.20 g/dL (11.27-16.99); Mean Corpuscular HGB Conc 30.5 g/dL (30-55); Mean Corpuscular Hemoglobin 24.8 pg (27-33); Mean Corpuscular Volume 81.3 fl (82-101); Nucleated Red Blood Cells % 0 %; Platelet Count 206 10^3/cmm (157-399); Red Blood Count 3.31 10^6/uL (3.85-5.65); White Blood Count 5.17 10^3/uL (3.29-11.43)
[2025-04-21 20:33] LABS: Glucose Urine UA Negative (Normal); Nitrate Urine Negative (Negative); Specific Gravity, Urine 1.013 (1.005-1.030)
[2025-04-21 20:34] VITALS: BP 99/59; PULSE 88; O2SAT 95
[2025-04-21 20:38] LABS: Add Urine Microscopic? YES
[2025-04-21 20:39] LABS: Troponin(5th) Baseline 107 ng/L (0-15)
[2025-04-21 20:40] LABS: Lactic Sepsis W/Reflex 1.8 mmol/L (0.5-2.2)
[2025-04-21 20:54] LABS: Alanine Aminotransferase 37 U/L (0-41); Albumin Level 2.9 g/dL (3.5-5.2); Alkaline Phosphatase 133 U/L (40-130); Anion Gap 15.6 (5-19); Aspartate Amino Transferase 86 U/L (0-40); Blood Urea Nitrogen 34 mg/dL (8-23); Calcium 9.3 mg/dL (8.5-10.5); Carbon Dioxide 26 mmol/L (22-29); Chloride 101 mmol/L (98-107); Globulin 3.1 g/dL (1.3-4.6); Glucose 89 mg/dL (65-115); Magnesium 1.9 mg/dL (1.7-2.3); NT Pro B Type Natriuretic Pept 360 pg/mL (0-125); Osmolality Calculated 295 mOsm/kg (285-295); Potassium 3.6 mmol/L (3.5-5.1); Sodium 139 mmol/L (136-145); Total Protein 6.0 g/dL (6.6-8.7)
[2025-04-21 21:04] VITALS: BP 99/62; PULSE 95; O2SAT 97
--- NOTE | 2025-04-21 21:29 | CTR_ITS ---
PROCEDURE INFORMATION: Exam: CT Chest With Contrast; Diagnostic Exam date and time: 04/21/2025 9:45 PM Age: 59 years old Clinical indication: Other: N/a; Abdominal pain; Localized; Shortness of breath; SOB with lower abd pain and UTI. Recent pneumonia. ; Additional info: Recent pna, UTI, equivocal cxr, diffuse lower abd pain TECHNIQUE: Imaging protocol: Diagnostic computed tomography of the chest with contrast. Radiation optimization: All CT scans at this facility use at least one of these dose optimization techniques: automated exposure control; mA and/or kV adjustment per patient size (includes targeted exams where dose is matched to clinical indication); or iterative reconstruction. Contrast material: OMNI 350; Contrast volume: 100 ml; Contrast route: INTRAVENOUS (IV); COMPARISON: CT chest abdpel w/*[id number] 04/06/2025 7:47 AM RADIATION DOSE METRICS: Total DLP (mGy-cm): 3190.56 FINDINGS: Lungs: No focal consolidations. Pleural spaces: Unremarkable. No pneumothorax. No pleural effusion. Heart: Unremarkable. No cardiomegaly. No pericardial effusion. Coronary arteries: Coronary arterial atherosclerotic calcifications are present. Lymph nodes: Unremarkable. No enlarged lymph nodes. Vasculature: Unremarkable. No aortic aneurysm. Bones/joints: Unremarkable. No acute fracture. Soft tissues: Unremarkable. PROCEDURE INFORMATION: Exam: CT Abdomen And Pelvis With Contrast Exam date and time: 04/21/2025 9:45 PM Age: 59 years old Clinical indication: Other: N/a; Abdominal pain; Localized; Shortness of breath; SOB with lower abd pain and UTI. Recent pneumonia. ; Additional info: Recent pna, UTI, equivocal cxr, diffuse lower abd pain TECHNIQUE: Imaging protocol: Computed tomography of the abdomen and pelvis with contrast. Radiation optimization: All CT scans at this facility use at least one of these dose optimization techniques: automated exposure control; mA and/or kV adjustment per patient size (includes targeted exams where dose is matched to clinical indication); or iterative reconstruction. Contrast material: OMNI 350; Contrast volume: 100 ml; Contrast route: INTRAVENOUS (IV); COMPARISON: CT chest abdpel w/*[id number] 04/06/2025 7:47 AM RADIATION DOSE METRICS: Total DLP (mGy-cm): 3190.56 FINDINGS: Liver: Normal. No mass. Gallbladder and biliary ducts: Normal. No calcified stones. No ductal dilation. Pancreas: Normal. No ductal dilation. Spleen: The spleen is enlarged measuring up to 16.0 cm in length. Adrenal glands: Normal. No mass. Kidneys and ureters: There is a 2.3 cm hypodense lesion in the lateral cortex of the left kidney measuring 82 Hounsfield units. This is indeterminate. Consider follow-up three-phase renal CT or renal MRI for further evaluation on a nonemergent basis. Stomach and bowel: Unremarkable. No obstruction. No mucosal thickening. Appendix: No evidence of appendicitis. Intraperitoneal space: Unremarkable. No free air. No significant fluid collection. Vasculature: Unremarkable. No abdominal aortic aneurysm. Lymph nodes: Unremarkable. No enlarged lymph nodes. Urinary bladder: There is a Constantino catheter in the bladder. Reproductive: Unremarkable as visualized. Bones/joints: Unremarkable. No acute fracture. Soft tissues: Unremarkable. CT/CT chest abdpel w/*[id number] IMPRESSION: No focal consolidations. IMPRESSION: 1. The spleen is enlarged measuring up to 16.0 cm in length. 2. No bowel obstruction or inflammatory process associated with the bowel. 3. No free air or significant free fluid in the abdomen or pelvis. 4. No evidence of appendicitis. COMMENTS: Consistent with the [employer]'s Incidental Findings Committee white paper (J Am Henrique Radiol 2018): Any incidental renal lesion less than 1 cm or classified as too small to characterize, or any incidental cystic renal lesion characterized as simple-appearing, is likely benign. No follow-up imaging is recommended for these lesions per consensus recommendations based on imaging criteria.
--- NOTE | 2025-04-21 21:29 | CTR_ITS ---
PROCEDURE INFORMATION: Exam: CT Head Without Contrast Exam date and time: 04/21/2025 9:38 PM Age: 59 years old Clinical indication: General weakness/lethargy; Additional info: AMS TECHNIQUE: Imaging protocol: Computed tomography of the head without contrast. Radiation optimization: All CT scans at this facility use at least one of these dose optimization techniques: automated exposure control; mA and/or kV adjustment per patient size (includes targeted exams where dose is matched to clinical indication); or iterative reconstruction. COMPARISON: CT head wo con* [id number] 04/06/2025 3:56 PM RADIATION DOSE METRICS: Total DLP (mGy-cm): 2429.38 FINDINGS: Brain: No acute intracranial hemorrhage. No midline shift or mass effect. No acute territorial infarct. Global age-related cerebral atrophy. 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 Cerebral ventricles: No ventriculomegaly. Paranasal sinuses: Visualized sinuses are unremarkable. No fluid levels. Mastoid air cells: Visualized mastoid air cells are well aerated. Bones: Unremarkable. No acute fracture. Soft tissues: Unremarkable. CT/CT head wo con* [id number] IMPRESSION: No acute intracranial hemorrhage. No midline shift or mass effect.
[2025-04-21] MEDS: iohexol 350 mg/mL 500 mL Btl (per mL) IV (21:41)
[2025-04-21 22:00] LABS: Procalcitonin 0.22 ng/mL (0-0.5)
[2025-04-21 22:36] LABS: CRP High Sensitivity Cardiac 1.960 mg/dL (0.0-0.3)
[2025-04-21 22:45] VITALS: BP 96/66; PULSE 94; O2SAT 97
== END 2025-04-21 23:24 | disposition home or self-care (01) ==
PROVIDERS: Emergency Provider Student in an Organized Health Care Education/Training Program; PCP Internal Medicine
DX: R53.1 Weakness (principal); Z79.01 Long term (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 of anticoagulants; Z79.4 Long term (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 of insulin; E78.5 Hyperlipidemia, unspecified; J44.9 Chronic obstructive pulmonary disease, unspecified; E11.9 Type 2 diabetes mellitus without complications; I11.0 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 heart disease with heart failure; I50.9 Heart failure, unspecified; I10 Essential (primary) hypertension
CPT/HCPCS: 36415; 70450; 71045; 71260; 74177; 80053; 81001; 83605; 83735; 83880; 84100; 84145; 84484; 85025; 85651; 86140; 86141; 87040; 93005; 99285